=== PATIENT | female | born 1970 | race Two or more races ===

== ENCOUNTER 2020-05-28 09:58 | Inpatient (IN) | payer MEDICAID ==
[~2020-05-28] VITALS: Ht 165.1 cm; Wt 101.2 kg
[2020-05-28] VITALS (10 sets, daily range): BP systolic 103–178; BP diastolic 60–104
--- NOTE | 2020-05-28 10:16 | NUR ---
ED Nurse Note: Patient from home and was brought in by RA 13 due to Respiratory distress x 3 days. Patient also c/o CP when coughing. Noted coughing with phlegm and patient is on orthopneic position. patient is AAO x4, follows commands with SOB at rest and exertion. Sats 90% on NR at 15LPM.
--- NOTE | 2020-05-28 10:30 | NUR ---
ED Nurse Note: RN established IV access but unable to draw out blood specimen. ER charge nurse notified. Lab for blood draw.
--- NOTE | 2020-05-28 10:35 | NUR ---
ED Nurse Note: RT at the bed side.
--- NOTE | 2020-05-28 10:44 | NUR ---
ED Nurse Note: Exotic Dancer at the bed side for blood draw.
[2020-05-28 10:56] LABS: BASOPHILS % (AUTO) 0.4 % (0.0-2.0); HEMATOCRIT 40.1 % (37.0-47.0); LYMPHOCYTES % (AUTO) 16.4 % (20.0-45.0); MEAN CORPUSCULAR VOLUME 91 FL (80-99); MONOCYTES % (AUTO) 8.8 % (1.0-10.0); NEUTROPHILS % (AUTO) 74.4 % (45.0-75.0); PLATELET COUNT 204 K/UL (150-450); RED BLOOD COUNT 4.39 M/UL (4.20-5.40); RED CELL DISTRIBUTION WIDTH 14.1 % (11.6-14.8); WHITE BLOOD COUNT 5.4 K/UL (4.8-10.8)
[2020-05-28] MEDS ORDERED: cefTRIAXone 1 GM in NS 55 ML IVPB ONE (11:00)
[2020-05-28] MEDS ORDERED: dexAMETHasone 10mg/ml Inj IV ONE (11:00)
[2020-05-28] MEDS ORDERED: Azithromycin 500 MG in NS 275 ML IV ONE (11:00)
[2020-05-28 11:10] LABS: CALCIUM 8.8 MG/DL (8.5-10.1); POTASSIUM 3.7 MMOL/L (3.5-5.1)
--- NOTE | 2020-05-28 11:10 | NUR ---
ED Nurse Note: Patient reports body pain and is asking for pain meds. Dr Palumbo was notified.
[2020-05-28] MEDS ORDERED: Morphine Sulfate 4mg/ml Inj (IV USE ONLY) IVP ONE (11:15)
[2020-05-28 11:24] LABS: ALBUMIN 3.1 G/DL (3.4-5.0); ALBUMIN/GLOBULIN RATIO 0.7 (1.0-2.7); BILIRUBIN,TOTAL 0.9 MG/DL (0.2-1.0)
[2020-05-28 11:27] LABS: INR 1.1 (0.9-1.1)
--- NOTE | 2020-05-28 11:38 | NUR ---
ED Nurse Note: electrical engineering technologist Amira at the bed side for CXR.
[2020-05-28] MEDS ORDERED: Enoxaparin 40mg Inj SUBQ ONE (12:00)
--- NOTE | 2020-05-28 12:12 | NUR ---
ED Nurse Note: Patient has pulse oximetry reading 90% with NRB 15L. No high flow available. Placed 6L oxygen via NC and 15L oxygen via NRB as ordered.
--- NOTE | 2020-05-28 12:46 | NUR ---
ED Nurse Note: Dr Palumbo is okay not to collect urine sample.
--- NOTE | 2020-05-28 13:10 | Emergency Room Report ---
History of Present Illness General Chief Complaint: Dyspnea/Respdistress Source: Patient, EMS Present Illness HPI 50-year-old female presents for shortness of breath. Brought in by EMS from home. Hypoxic on room air. Placed on nonrebreather. Started 3 to 4 days ago. Recent Covid diagnosis. Denies chest pain. States she is short of breath at rest. States she has a cough with generalized body aches. No other aggravating relieving factors. 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 INSIGHT ANALYST: Yes COVID-19 Screening: Positive COVID-19 COVID-19 Testing Source: TUBE ROOM CASHIER Patient History Past Medical History: HTN Past Surgical History: none Pertinent Family History: none Social History: Denies: smoking, alcohol use, drug use Now: No Immunizations: UTD Reviewed Nursing Documentation: PMH: Agreed; PSxH: Agreed Nursing Documentation-PMH Past Medical History: No History, Except For Hx Hypertension: Yes Review of Systems All Other Systems: negative except mentioned in HPI Physical Exam Vital Signs Date Time Temp Pulse Resp B/P (MAP) Pulse Ox O2 Delivery O2 Flow Rate FiO2 05/28/20 09:56 97.0 103 28 126/104 (111) 90 Non-Rebreather 05/28/20 10:06 15.0 Sp02 EP Interpretation: reviewed, normal General Appearance: alert, GCS 15, non-toxic, mild distress, obese Head: normocephalic, atraumatic Eyes: bilateral eye normal inspection, bilateral eye PERRL ENT: hearing grossly normal, normal pharynx, no angioedema, normal voice Neck: full range of motion, supple/symm/no masses Respiratory: chest non-tender, crackles, speaking full sentences Cardiovascular #1: regular rate, rhythm, no edema Cardiovascular #2: 2+ carotid (R), 2+ carotid (L), 2+ radial (R), 2+ radial (L), 2+ dorsalis pedis (R), 2+ dorsalis pedis (L) Gastrointestinal: normal bowel sounds, non tender, soft, non-distended, no guarding, no rebound Rectal: deferred Genitourinary: normal inspection, no CVA tenderness Musculoskeletal: back normal, normal range of motion, gait/station normal, non- tender Neurologic: alert, motor strength/tone normal, oriented x3, sensory intact, responsive, speech normal Psychiatric: judgement/insight normal, memory normal, mood/affect normal, no suicidal/homicidal ideation Reflexes: 3+ bicep (R), 3+ bicep (L), 3+ tricep (R), 3+ tricep (L), 3+ knee (R), 3+ knee (L) Skin: other - See nursing notes Lymphatic: no adenopathy Procedures Critical Care Time Critical Care Time i. I feel this is a highly complex case requiring extensive working including EKG/Rhythm strip, Xray/CT/US, Blood/urine lab work, repeat exams while in ED,and administration of strong opiates/narcotics for pain control, admission to hospital or close patient follow up. Total time: 60 min bedside evaluation and treatment excludes procedures (EKG). Reason for critical care: Respiratory distress, hypoxia, Covid Possible complications: hypotension, hypertension, ID, shock, arrhythmias, metabolic acidosis, end organ damage, respiratory failure. Interventions: Labs, EKG, chest x-ray, broad-spectrum antibiotics, Decadron, Lovenox. Nonrebreather. Reassessment of vitals Course: Patient presenting with shortness of breath, hypoxia. Covid positive. Hypoxic on room air. Placed on nonrebreather. Chest x-ray shows patchy opacities. O2 sats improved on nonrebreather. Given Lovenox. Given Decadron. Given antibiotics Consultations: nursing staff, EMS, family Performed by: Dr Palumbo Tolerated well condition = serious j. because of unstable vital signs this patient had a condition that could potentially threaten life or limb. I feel this is a critical patient who required my full attention while patient was considered critical. Total Critical Care Time excluding procedures was greater than 60 minutes Medical Decision Making Diagnostic Impression: Primary Impression: Respiratory distress Additional Impression: Pneumonia due to COVID-19 virus ER Course Hospital Course 50-year-old female presents with shortness of breath, hypoxic. Covid positive Differential diagnoses include: Pneumonia, CHF exacerbation, pneumothorax, fluid overload Clinical course Patient placed on stretcher. Isolation. I wore full PPE. On campus monitor with hypoxia on room air. After initial history and physical, I ordered labs, IV fluids, EKG, chest x-ray, blood cultures, UA. Labs -no leukocytosis, hemoglobin/hematocrit stable, electrolytes okay, trop negative inflammatory markers + , d-dimer elevated COVID+ CXR -bilateral patchy opacities EKGnormal sinus rhythm no acute ischemic changes interpreted by me discussed option of BiPAP but patient O2 sats improved on nonrebreather. Given Decadron. Given Lovenox. Given antibiotics Case discussed with Dr. Del Cid and he agreed to the patient to his service for further care and support I feel this is a highly complex case requiring extensive working including EKG/Rhythm strip, Xray/CT/US, Blood/urine lab work, repeat exams while in ED, and administration of strong opiates/narcotics for pain control, admission to hospital or close patient follow up. Diagnosis - pneumonia due to COVID, resp distress Patient admitted to telemetry in serious condition Laboratory Tests Test 05/28/20 10:42 White Blood Count 5.4 K/UL (4.8-10.8) Red Blood Count 4.39 M/UL (4.20-5.40) Hemoglobin 13.0 G/DL (12.0-16.0) Hematocrit 40.1 % (37.0-47.0) Mean Corpuscular Volume 91 FL (80-99) Mean Corpuscular Hemoglobin 29.7 PG (27.0-31.0) Mean Corpuscular Hemoglobin Concent 32.5 G/DL (32.0-36.0) Red Cell Distribution Width 14.1 % (11.6-14.8) Platelet Count 204 K/UL (150-450) Mean Platelet Volume 7.0 FL (6.5-10.1) Neutrophils (%) (Auto) 74.4 % (45.0-75.0) Lymphocytes (%) (Auto) 16.4 % (20.0-45.0) L Monocytes (%) (Auto) 8.8 % (1.0-10.0) Eosinophils (%) (Auto) 0.0 % (0.0-3.0) Basophils (%) (Auto) 0.4 % (0.0-2.0) Prothrombin Time 11.7 SEC (9.30-11.50) H Prothromb Time International Ratio 1.1 (0.9-1.1) Activated Partial Thromboplast Time 28 SEC (23-33) D-Dimer 0.52 mg/L FEU (0.00-0.49) H Sodium Level 135 MMOL/L (136-145) L Potassium Level 3.7 MMOL/L (3.5-5.1) Chloride Level 100 MMOL/L (98-107) Carbon Dioxide Level 27 MMOL/L (21-32) Anion Gap 8 mmol/L (5-15) Blood Urea Nitrogen 15 mg/dL (7-18) Creatinine 1.0 MG/DL (0.55-1.30) Estimat Glomerular Filtration Rate 58.9 mL/min (>60) Glucose Level 145 MG/DL (74-106) H Lactic Acid Level 1.60 mmol/L (0.4-2.0) Calcium Level 8.8 MG/DL (8.5-10.1) Ferritin 1622 NG/ML (8-388) H Total Bilirubin 0.9 MG/DL (0.2-1.0) Aspartate Amino Transf (AST/SGOT) 72 U/L (15-37) H Alanine Aminotransferase (ALT/SGPT) 69 U/L (12-78) Alkaline Phosphatase 43 U/L (46-116) L Lactate Dehydrogenase 430 U/L (81-234) H Troponin I 0.000 ng/mL (0.000-0.056) C-Reactive Protein, Quantitative Pending Pro-B-Type Natriuretic Peptide 33 pg/mL (0-125) Total Protein 7.8 G/DL (6.4-8.2) Albumin 3.1 G/DL (3.4-5.0) L Globulin 4.7 g/dL Albumin/Globulin Ratio 0.7 (1.0-2.7) L Lipase 174 U/L (73-393) EKG Diagnostic Results Troponin ordered: Yes Rate: normal Rhythm: NSR ST Segments: no acute changes ASA given to the pt in ED: No Rhythm Strip Diag. Results EP Interpretation: yes Rhythm: NSR, no PVC's, no ectopy Chest X-Ray Diagnostic Results Chest X-Ray Diagnostic Results : Chest X-Ray Ordered: Yes # of Views/Limited/Complete: 1 View Indication: Shortness of Breath EP Interpretation: Yes Interpretation: no pneumothorax, other - patchy bilateral opacities Impression: Other - Pneumonia Electronically Signed by: Electronically signed by Heath Palumbo MD Last Vital Signs Date Time Temp Pulse Resp B/P (MAP) Pulse Ox O2 Delivery O2 Flow Rate FiO2 05/28/20 12:00 98.2 98 23 112/66 90 Non-Rebreather 15.0 Status: improved Disposition: ADMITTED INPATIENT Condition: Serious Referrals: NON PHYSICIAN (PCP) Heath Palumbo MD May 28, 2020 13:10
--- NOTE | 2020-05-28 14:18 | Consultation ---
Consult Note Consult Note Date of consultation: 05/28/2020 Consulting physician: Dr. Nava Reason for consultation: COVID-19 pneumonia, and respiratory distress HPI: This is a 50-year-old female with past medical history of hypertension who presented to the ED for evaluation of shortness of breath x4 days. She is brought in by EMS from home. She was hypoxic on room air on arrival. She is now placed on nonrebreather mask saturating at 88%. Patient reports cough, shortness of breath, generalized body aches, fever, nausea, and diarrhea. She denies chest pain. Chest x-ray read by ER MD shows patchy opacities. She has been given Lovenox, Decadron, and antibiotics. Patient tested positive for COVID-19 in the ER. Initial laboratory studies are notable for no leukocytosis, stable H&H, electrolytes within normal limits, negative troponin. Inflammatory markers are elevated. PMHx: Hypertension Meds: Full list of home medication unavailable at this time Allergies: No known allergies FHx: Unknown Personal/Social Hx: Lives at home ROS: Negative except for mentioned in HPI PE: VS: BP 126/104, HR 103, RR 28, wt 100 kg, ht 167 cm General: Patient appears short of breath on nonrebreather mask. Patient speaks in short sentences. Patient appears morbidly obese. HEENT: Head examination reveals that the head is normocephalic, atraumatic without deformity or unusual swelling. Pupils are round, reactive to light and accomodation normally. There is no nystagmus, lid lag or exophthalmos. Nasal mucosa is pink. Vision is normal. Chest and Lung: Reveals crackles. She coughs on deep inspiration. Cardiovascular: Revelas normal S1, S2 without murmurs, rubs or clicks Abdomen: Obese, soft with no tenderness or organomegaly Rectal: Deferred Musculoskeletal: There is no tenderness to plapation. Range of motion is normal Neurological: Cranial nerves II to XII are intact. Laboratory data: Lab testing shows unremarkable CBC. Chemistries show sodium 135, glucose 145, ferritin 1622, AST 72, alk phos 43, LDH 430, albumin 3.1 Assessment/Plan 1. COVID-19 pneumonia -Given her hypoxia even on nonrebreather mask, she may be a candidate for BiPAP - We will continue broad-spectrum antibiotics. - We will continue dexamethasone -Defer use of remdesivir to ID -Continue monitoring SaO2 and keep it >92% -Check ABG after BiPAP 2. Hyponatremia -Per primary MD 3. Elevated inflammatory markers -Continue Lovenox The care for this patient was discussed with my supervising physician. Time spent for this case was approximately 31 minutes. Vamshi Garcia May 28, 2020 14:18
--- NOTE | 2020-05-28 15:30 | NUR ---
ED Nurse Note: Patient now on Bipap. Sats 88-90%.
--- NOTE | 2020-05-28 15:55 | NUR ---
ED Nurse Note: Second red to sent to lab.
[2020-05-28] MEDS ORDERED: Loading Dose:Remdesivir 200mg/NS 210ml IV SCH ×2 (16:00)
--- NOTE | 2020-05-28 17:43 | NUR ---
ED Nurse Note: Ericka (natalie) [phone]
--- NOTE | 2020-05-28 18:29 | Diagnostic Imaging Report ---
Indication: Shortness of breath Technique: One view of the chest Comparison: none Findings: Body habitus limits evaluation. There are bilateral streaky and patchy infiltrates. The heart size is normal. The pleural spaces are clear. Impression: Bilateral infiltrates, likely multifocal pneumonia
--- NOTE | 2020-05-28 19:15 | NUR ---
HAND-OFF: Report given to Nirmala ELLINGTON.
--- NOTE | 2020-05-28 19:41 | NUR ---
ED Nurse Note: Recived report from Crystal. ER MD at bedside. ER MD educated pt on current condition and pt is refusing intubation at this time. She is axox4. She states she feels terrible. She is hypoxic on bipap. Her vitals are stable otherwise. Thearapuetic communication utilized and care clustered. Maintained isolation status.
--- NOTE | 2020-05-28 21:56 | NUR ---
ED Nurse Note: Pt is resting, stated thah she was happy to talk to her niece. She is asking about how long it will be until she is intubated. Re-educated pt on condition and current plan of care. Educated on informed consent. Pt states that she is tired. Pt states that she is ready to be intubated. Informed ER . ER MD spoke with pt about her wishes. ER MD requested different setting on BI-Pap to 06/01. Pt's vitals are stable for now. She is hypoxic SPO2 85%. Continuous tele monitoring and pulse ox monitoring. 2 IVs placed. Addendum: 05/28/20 at 2238 by ELA Correction: SPO2 was 62%
--- NOTE | 2020-05-28 22:25 | NUR ---
ED Nurse Note: 22:23: Etomidate 20mg given 22:23: Rucoronium 100 mg 22:25: Intubation 7 ET right lip, 22cm at the teeth. Vent settings AC 16, TV 500, 100%, +10 PEEP SPO2 85%, HR 107, 178/99, Addendum: 05/28/20 at 2316 by TDANCEY Correction: AC 15
--- NOTE | 2020-05-28 22:38 | Emergency Room Report ---
History of Present Illness General Chief Complaint: Dyspnea/Respdistress Source: Patient, EMS Present Illness Allergies: Coded Allergies: No Known Allergies (Unverified , 05/28/20) COVID-19 Screening Contact w/high risk pt: No Experienced COVID-19 symptoms?: Yes COVID-19 Testing performed DINING ROOM HELPER: Yes COVID-19 Screening: Positive COVID-19 COVID-19 Testing Source: CELL BIOLOGY SCIENTIST Patient History Now: No Nursing Documentation-[facility] Past Medical History: No History, Except For Hx Hypertension: Yes Physical Exam Vital Signs Date Time Temp Pulse Resp B/P (MAP) Pulse Ox O2 Delivery O2 Flow Rate FiO2 05/28/20 09:56 97.0 103 28 126/104 (111) 90 Non-Rebreather 05/28/20 10:06 15.0 05/28/20 15:14 100 Procedures Intubation Intubation : Consent: Emergent Time of Intubation: 22:20 Tube Size (cm): 7.0 Medications: Etomidate, Rocuronium Breath Sounds after Intubation: equal Intubation Complications: no complications Post Intubation Xray: Yes Attempts: One Patient Tolerated: Well Complications: None Progress Patient was intubated after laryngoscopy x1 with glide scope. Patient was maintained on high flow nasal cannula and given medications. ET tube is secured to 22 cm. She was started on mechanical ventilation with some improvement in oxygen saturation subsequently.Patient was started on sedation with propofol Medical Decision Making Diagnostic Impression: Primary Impression: Respiratory distress Additional Impression: Pneumonia due to COVID-19 virus Last Vital Signs Date Time Temp Pulse Resp B/P (MAP) Pulse Ox O2 Delivery O2 Flow Rate FiO2 05/28/20 21:55 98.0 83 41 119/71 85 Bi-pap 100 05/28/20 20:15 15.0 Disposition: ADMITTED INPATIENT Condition: Serious Referrals: NON PHYSICIAN (PCP) Jhonatan Bolton MD May 28, 2020 22:38
[2020-05-28] MEDS ORDERED: propofoL 1,000mg/100ml 100 ML IV SCH (22:45)
--- NOTE | 2020-05-28 22:48 | NUR ---
ED Nurse Note: Propofol drip started RASS of 0 per ER MD order of 10mcg/kg/min Will titrate per hospital protocol.
[2020-05-29] VITALS (15 sets, daily range): BP systolic 98–147; BP diastolic 58–97
[2020-05-29] MEDS ORDERED: Morphine Sulfate 4mg/ml Inj (IV USE ONLY) IVP ONE (00:15)
--- NOTE | 2020-05-29 00:16 | NUR ---
ED Nurse Note: Paged DR Del Cid for orders
--- NOTE | 2020-05-29 01:30 | NUR ---
ED Nurse Note: PAGED DR. FRANK FOR ADMISSION ORDERS
--- NOTE | 2020-05-29 01:41 | NUR ---
ED Nurse Note: Titrated Profofol to 40mcg/kg/min, Pt is -2 RASS and is comfortable. Morphine administered for throat pain, pt nodded to afirm that her pain was better after 15 minutes. Lennon placed per order. Oral Gtube place by RN, Chest xray done to confirm placement. Urine sent to lab. Nasal and rectal swabs sent to lab. 2nd abg done by RT. Pt's resting comfortably with SPO2 91%.
[2020-05-29 01:45] LABS: APPEARANCE,URINE CLEAR; BILIRUBIN, URINE NEGATIVE (NEGATIVE); GLUCOSE, URINE (UA) NEGATIVE (NEGATIVE); KETONES,URINE 1+ (NEGATIVE); LEUKOCYTE ESTERASE ,URINE NEGATIVE (NEGATIVE); NITRITE,URINE NEGATIVE (NEGATIVE); PH,URINE 6 (4.5-8.0); PROTEIN,URINE 3+ (NEGATIVE); UROBILINOGEN,URINE NORMAL MG/DL (0.0-1.0)
[2020-05-29 01:51] LABS: COLOR,URINE YELLOW
--- NOTE | 2020-05-29 02:12 | NUR ---
ED Nurse Note: Called Dr Del Cid for a third time for new orders. Pt is resting comfortably, vitals are stable as documented.
[2020-05-29] MEDS ORDERED: propofoL 1,000mg/100ml 100 ML IV SCH (02:45)
--- NOTE | 2020-05-29 03:19 | NUR ---
ED Nurse Note: Pt is resting comfortably with eyes closed, she is not coughing on the vent, decreased the sedation, Vitals are stable as documented, no complaints of pain.
--- NOTE | 2020-05-29 04:54 | NUR ---
ED Nurse Note: Pt is resting comfortably, nods head no when asked about pain, suctioned pt with RT, vitals are stable as documented, labs sent
[2020-05-29 04:57] LABS: BASOPHILS % (AUTO) 0.3 % (0.0-2.0); HEMATOCRIT 35.6 % (37.0-47.0); HEMOGLOBIN 12.5 G/DL (12.0-16.0); LYMPHOCYTES % (AUTO) 13.9 % (20.0-45.0); MEAN CORPUSCULAR VOLUME 86 FL (80-99); MONOCYTES % (AUTO) 7.7 % (1.0-10.0); NEUTROPHILS % (AUTO) 78.1 % (45.0-75.0); PLATELET COUNT 209 K/UL (150-450); RED BLOOD COUNT 4.12 M/UL (4.20-5.40); RED CELL DISTRIBUTION WIDTH 15.3 % (11.6-14.8); WHITE BLOOD COUNT 7.8 K/UL (4.8-10.8)
--- NOTE | 2020-05-29 05:11 | NUR ---
ED Nurse Note: Paged Dr Del Cid
--- NOTE | 2020-05-29 05:33 | NUR ---
ED Nurse Note: paged DR Del Cid. for new orders
--- NOTE | 2020-05-29 05:55 | NUR ---
ED Nurse Note: Pt is resting comfortably, eyes closed, no signs of distress. Vitals are stable as documented. PT is not coughing or fighting the vent.
--- NOTE | 2020-05-29 06:07 | NUR ---
ED Nurse Note: Spoke with Ericka medrano) on the phone ad updted her on the pts condition.
--- NOTE | 2020-05-29 06:28 | NUR ---
ED Nurse Note: Unable to continue with new profofol infusion until pharamacy opens at 07:00. There is none in the ICU or ED pyxis.
--- NOTE | 2020-05-29 06:36 | NUR ---
ED Nurse Note: Paged DR Del Cid for new orders.
--- NOTE | 2020-05-29 07:00 | NUR ---
RESPIRATORY NOTE: PT RECEIVED ON CMV AC/VC 15,500,100%,+10. ALARMS ARE ON AND AUDIBLE. PT IS INTUBATED WITH A ETT 7.0 @ 23CM. ALARMS ARE ON AND AUDIBLE. PT HAS LOW SATURATION OF APPROXIMATELY 90% ON 100% FIO2 AND PEEP +10. VENTILATOR PLUGGED INTO RED OUTLET. WILL CONTINUE TO CLOSELY MONITOR.
[2020-05-29] MEDS: propofoL 1,000mg/100ml 100 ML IV SCH ×4 (07:02→19:40)
--- NOTE | 2020-05-29 08:08 | NUR ---
ED Nurse Note: report received from RAKEL Silvestre. Pt resting in bed with eyes closed. Intibated, 89% on mech vent @ 100% Fio2. Pt on propofol drip with RASS -2. Pt able to follow simple commands. no acute distress noted.
[2020-05-29] MEDS: dexAMETHasone 10mg/ml Inj IV SCH (08:15)
[2020-05-29] MEDS: cefTRIAXone 1 GM in NS 55 ML IVPB SCH (08:15)
[2020-05-29] MEDS: Azithromycin 500 MG in NS 275 ML IV SCH (08:19)
--- NOTE | 2020-05-29 08:50 | NUR ---
ED Nurse Note: Dr boston at bedside aware of O2 sat between 80 and 85%
--- NOTE | 2020-05-29 09:42 | General Progress Note ---
Subjective Constitutional: Reports: weakness Allergies: Coded Allergies: No Known Allergies (Unverified , 05/28/20) All Systems: reviewed and negative except above Subjective intubated sedatde Objective Last 24 Hour Vital Signs Date Time Temp Pulse Resp B/P (MAP) Pulse Ox O2 Delivery O2 Flow Rate FiO2 05/29/20 07:12 97.6 88 26 100/70 89 Mechanical Ventilator 100 05/29/20 07:02 36 100/69 Mechanical Ventilator 100 05/29/20 05:53 97.8 73 23 99/59 88 Mechanical Ventilator 100 05/29/20 04:21 97.6 78 26 103/68 94 Mechanical Ventilator 100 05/29/20 03:30 79 20 100 05/29/20 03:18 97.7 75 20 99/61 88 Mechanical Ventilator 100 05/29/20 03:13 16 92/64 Mechanical Ventilator 100 05/29/20 02:14 98.3 78 17 107/68 88 Mechanical Ventilator 100 05/29/20 01:37 98.0 82 20 105/67 91 Mechanical Ventilator 100 05/29/20 01:25 23 111/66 Mechanical Ventilator 100 05/29/20 01:24 97.8 05/29/20 01:10 29 130/109 Mechanical Ventilator 100 05/29/20 00:55 97.8 81 30 147/97 91 Mechanical Ventilator 100 05/28/20 23:55 30 110/87 Mechanical Ventilator 100 05/28/20 23:40 28 141/97 Mechanical Ventilator 100 05/28/20 23:24 22 141/97 Mechanical Ventilator 100 05/28/20 23:19 15 175/92 Mechanical Ventilator 100 05/28/20 23:03 16 175/93 Mechanical Ventilator 100.0 05/28/20 22:48 16 178/99 Mechanical Ventilator 100.0 05/28/20 22:45 105 16 100 05/28/20 22:36 98.3 106 20 178/99 81 Endotracheal Tube 05/28/20 21:55 98.0 83 41 119/71 65 Bi-pap 100 05/28/20 20:51 98.4 77 31 115/65 80 Bi-pap 100 05/28/20 20:15 98.3 78 33 124/72 79 Bi-pap 15.0 100 05/28/20 19:40 98.6 87 39 116/72 80 Bi-pap 05/28/20 19:28 73 29 78 100 05/28/20 18:00 98.3 87 22 103/65 88 Non-Rebreather 15.0 100 05/28/20 16:00 97.7 80 25 115/67 91 Non-Rebreather 100 05/28/20 15:15 15.0 100 05/28/20 15:14 98 29 92 100 05/28/20 14:06 98.2 84 20 109/60 89 Non-Rebreather 15.0 05/28/20 12:00 98.2 98 23 112/66 90 Non-Rebreather 15.0 05/28/20 11:52 98.2 05/28/20 10:06 97.0 103 25 126/104 90 Non-Rebreather 15.0 05/28/20 10:06 103 28 Non-Rebreather 05/28/20 09:56 97.0 103 28 126/104 (111) 90 Non-Rebreather Intake and Output 05/28/20 05/29/20 19:00 07:00 Intake Total 580 ml Balance 580 ml Intake IV Total 580 ml Laboratory Tests 05/28/20 10:42: White Blood Count 5.4, Red Blood Count 4.39, Hemoglobin 13.0, Hematocrit 40.1, Mean Corpuscular Volume 91, Mean Corpuscular Hemoglobin 29.7, Mean Corpuscular Hemoglobin Concent 32.5, Red Cell Distribution Width 14.1, Platelet Count 204, Mean Platelet Volume 7.0, Neutrophils (%) (Auto) 74.4, Lymphocytes (%) (Auto) 16.4L, Monocytes (%) (Auto) 8.8, Eosinophils (%) (Auto) 0.0, Basophils (%) (Auto) 0.4, Prothrombin Time 11.7H, Prothromb Time International Ratio 1.1, Activated Partial Thromboplast Time 28, D-Dimer 0.52H, Sodium Level 135L, Potassium Level 3.7, Chloride Level 100, Carbon Dioxide Level 27, Anion Gap 8, Blood Urea Nitrogen 15, Creatinine 1.0, Estimat Glomerular Filtration Rate 58.9, Glucose Level 145H, Lactic Acid Level 1.60, Calcium Level 8.8, Ferritin 1622H, Total Bilirubin 0.9, Aspartate Amino Transf (AST/SGOT) 72H, Alanine Aminotransferase (ALT/SGPT) 69, Alkaline Phosphatase 43L, Lactate Dehydrogenase 430H, Troponin I 0.000, Pro-B-Type Natriuretic Peptide 33, Total Protein 7.8, Albumin 3.1L, Globulin 4.7, Albumin/Globulin Ratio 0.7L, Lipase 174 05/28/20 14:29: Arterial Blood pH 7.404, Arterial Blood Partial Pressure CO2 41.7, Arterial Blood Partial Pressure O2 44.1*L, Arterial Blood HCO3 25.5, Arterial Blood Oxygen Saturation 80.0*L, Arterial Blood Base Excess 0.6, Jeremiah Test Positive 05/28/20 15:55: C-Reactive Protein, Quantitative 78.8H 05/28/20 19:13: Arterial Blood pH 7.389, Arterial Blood Partial Pressure CO2 44.4, Arterial Blood Partial Pressure O2 48.9*L, Arterial Blood HCO3 26.2H, Arterial Blood Oxygen Saturation 84.3*L, Arterial Blood Base Excess 0.9, Jeremiah Test Positive 05/29/20 01:15: Urine Color Yellow, Urine Appearance Clear, Urine pH 6, Urine Specific Chappell 1.020, Urine Protein 3+H, Urine Glucose (UA) Negative, Urine Ketones 1+H, Urine Blood 1+H, Urine Nitrite Negative, Urine Bilirubin Negative, Urine Urobilinogen Normal, Urine Leukocyte Esterase Negative, Urine RBC 0-2, Urine WBC 0-2, Urine Squamous Epithelial Cells Few, Urine Bacteria None 05/29/20 01:52: Arterial Blood pH 7.416, Arterial Blood Partial Pressure CO2 39.2, Arterial Blood Partial Pressure O2 62.9L, Arterial Blood HCO3 24.6, Arterial Blood Oxygen Saturation 91.3L, Arterial Blood Base Excess 0.2, Jeremiah Test Positive 05/29/20 04:40: White Blood Count 7.8, Red Blood Count 4.12L, Hemoglobin 12.5, Hematocrit 35.6L, Mean Corpuscular Volume 86, Mean Corpuscular Hemoglobin 30.4, Mean Corpuscular Hemoglobin Concent 35.2, Red Cell Distribution Width 15.3H, Platelet Count 209, Mean Platelet Volume 7.2, Neutrophils (%) (Auto) 78.1H, Lymphocytes (%) (Auto) 13.9L, Monocytes (%) (Auto) 7.7, Eosinophils (%) (Auto) 0.0, Basophils (%) (Auto) 0.3, Direct Bilirubin 0.3, Triglycerides Level 180H Height (Feet): 5 Height (Inches): 6.00 Weight (Pounds): 220 General Appearance: lethargic EENT: normal ENT inspection Neck: normal alignment Cardiovascular: normal peripheral pulses, normal rate, regular rhythm Respiratory/Chest: chest wall non-tender, lungs clear, normal breath sounds Abdomen: normal bowel sounds, non tender, soft Extremities: normal inspection Edema: no edema noted Arm (L), no edema noted Arm (R), no edema noted Leg (L), no edema noted Leg (R), no edema noted Pedal (L), no edema noted Pedal (R), no edema noted Generalized Neurologic: motor weakness Skin: normal pigmentation, warm/dry Assessment/Plan Problem List: (1) Hypoxia ICD Codes: R09.02 - Hypoxemia SNOMED: 471137088 (2) Respiratory failure ICD Codes: J96.90 - Respiratory failure, unspecified, unspecified whether with hypoxia or hypercapnia SNOMED: 129836814 (3) Respiratory distress ICD Codes: R06.03 - Acute respiratory distress; J12.82 - Pneumonia due to coronavirus disease 2019 SNOMED: 578234621 (4) Pneumonia due to COVID-19 virus ICD Codes: U07.1 - COVID-19; J12.82 - Pneumonia due to coronavirus disease 2019 SNOMED: 487636653557428237 Status: unchanged Assessment/Plan: vent abx id pulm f/u cbc bmp am aTnk Del Cid DO May 29, 2020 09:42
--- NOTE | 2020-05-29 10:14 | History and Physical Report ---
DATE OF ADMISSION: 05/28/2020 TIME SEEN: Approximate time 1 p.m. CONSULTANTS: 1. Tank Del Cid DO. 2. Fili Mcelroy MD. 3. Javier Nava MD. CHIEF COMPLAINT: Respiratory distress, hypoxia, respiratory failure. BRIEF HISTORY: This is a 50-year-old female who came into [facility] yesterday with increased shortness of breath for two days. Shortly thereafter went into respiratory failure. The patient currently intubated, sedated in the ER, awaiting bed. PAST MEDICAL HISTORY: Nothing. PAST SURGICAL HISTORY: Nothing. MEDICATIONS: Remdesivir, dexamethasone, ceftriaxone, azithromycin, propofol. ALLERGIES: Denies. SOCIAL HISTORY: No smoking. No alcohol. No intravenous drug abuse. FAMILY HISTORY: Noncontributory. PHYSICAL EXAMINATION: GENERAL: Lethargic, intubated in bed, nonverbal. VITAL SIGNS: Temperature 97 degrees, pulse 88, respirations 26, blood pressure 100/70. CARDIOVASCULAR: No murmur. LUNGS: Poor air exchange. ABDOMEN: Bowel sounds distant. EXTREMITIES: No cyanosis, clubbing, or edema. NEUROLOGIC: The patient is flaccid in bed, not following directions. LABORATORY DATA: Labs at this time show CBC is normal. BMP is pending. INR is 1.1. D-dimer 0.52. Urinalysis show 1+ blood, 1+ ketones. ASSESSMENT: 1. Respiratory failure. 2. Hypoxia. 3. COVID infection was positive. PLAN: 1. Vent per pulmonary. 2. Antibiotics per Infectious Diseases. 3. Blood pressure and blood sugar control. 4. Dietary followup. 5. CBC and BMP in the morning. Tank Del Cid D.O. DR: Rosmery JOB#: [id number] CC:
--- NOTE | 2020-05-29 10:30 | NUR ---
ED Nurse Note: Pt coughing and at times, fighting against the vent. O2 sat 79/80%. SPoke with Dr. Del Cid who said to speak with Dr. Nava. Called Dr. Nava and spoke with him about patient's condition. Per Dr. Nava, give 2 mg morphine q4hr PRN and he will see the patient MARILIN. Orders noted and carried out.
[2020-05-29] MEDS ORDERED: Morphine Sulfate 2mg/ml Inj(IV/IM USE ONLY) IVP PRN (10:45)
--- NOTE | 2020-05-29 10:58 | NUR ---
ED Nurse Note: RT @ bedside suctioning patient.
[2020-05-29 11:09] LABS: ANION GAP 11 mmol/L (5-15); BLOOD UREA NITROGEN 21 mg/dL (7-18); CALCIUM 8.8 MG/DL (8.5-10.1); CARBON DIOXIDE 25 MMOL/L (21-32); CHLORIDE 102 MMOL/L (98-107); CREATININE 0.8 MG/DL (0.55-1.30); POTASSIUM 4.6 MMOL/L (3.5-5.1); SODIUM 138 MMOL/L (136-145)
[2020-05-29 11:13] LABS: ALANINE AMINOTRANSFERASE 71 U/L (12-78); ALBUMIN/GLOBULIN RATIO 0.8 (1.0-2.7); ALKALINE PHOSPHATASE 42 U/L (46-116); ASPARTATE AMINO TRANSFERASE 93 U/L (15-37); BILIRUBIN,TOTAL 0.7 MG/DL (0.2-1.0)
--- NOTE | 2020-05-29 12:10 | NUR ---
ED Nurse Note: Dr. Nava @ bedside to assess patient. Aware of low o2 sat of 80%. Per MD, increase Peep to 14 and change PRN morphine to q2hr PRN. orders noted and carried out.
[2020-05-29] MEDS: Morphine Sulfate 2mg/ml Inj(IV/IM USE ONLY) IVP PRN (14:45)
--- NOTE | 2020-05-29 15:06 | Pulmonology Progress Note ---
Subjective Interval Events: Intubated overnight Constitutional: Reports: no symptoms HEENT: Repors: no symptoms Respiratory: Reports: no symptoms Cardiovascular: Reports: no symptoms Gastrointestinal/Abdominal: Reports: no symptoms Genitourinary: Reports: no symptoms Allergies: Coded Allergies: No Known Allergies (Unverified , 05/28/20) All Systems: reviewed and negative except above Objective Last 24 Hour Vital Signs Date Time Temp Pulse Resp B/P (MAP) Pulse Ox O2 Delivery O2 Flow Rate FiO2 05/29/20 14:00 97.8 66 26 98/60 87 Mechanical Ventilator 100.0 100 05/29/20 12:00 98.1 75 29 99/58 81 Mechanical Ventilator 100.0 100 05/29/20 10:57 29 108/72 Mechanical Ventilator 100 05/29/20 10:00 98.2 93 26 108/73 86 Mechanical Ventilator 100.0 100 05/29/20 08:00 98.1 91 26 102/67 89 Mechanical Ventilator 100.0 100 05/29/20 07:12 97.6 88 26 100/70 89 Mechanical Ventilator 100 05/29/20 07:02 36 100/69 Mechanical Ventilator 100 05/29/20 07:00 77 25 100 05/29/20 05:53 97.8 73 23 99/59 88 Mechanical Ventilator 100 05/29/20 04:21 97.6 78 26 103/68 94 Mechanical Ventilator 100 05/29/20 03:30 79 20 100 05/29/20 03:18 97.7 75 20 99/61 88 Mechanical Ventilator 100 05/29/20 03:13 16 92/64 Mechanical Ventilator 100 05/29/20 02:14 98.3 78 17 107/68 88 Mechanical Ventilator 100 05/29/20 01:37 98.0 82 20 105/67 91 Mechanical Ventilator 100 05/29/20 01:25 23 111/66 Mechanical Ventilator 100 05/29/20 01:24 97.8 05/29/20 01:10 29 130/109 Mechanical Ventilator 100 05/29/20 00:55 97.8 81 30 147/97 91 Mechanical Ventilator 100 05/28/20 23:55 30 110/87 Mechanical Ventilator 100 05/28/20 23:40 28 141/97 Mechanical Ventilator 100 05/28/20 23:24 22 141/97 Mechanical Ventilator 100 05/28/20 23:19 15 175/92 Mechanical Ventilator 100 05/28/20 23:03 16 175/93 Mechanical Ventilator 100.0 05/28/20 22:48 16 178/99 Mechanical Ventilator 100.0 05/28/20 22:45 105 16 100 05/28/20 22:36 98.3 106 20 178/99 81 Endotracheal Tube 05/28/20 21:55 98.0 83 41 119/71 65 Bi-pap 100 05/28/20 20:51 98.4 77 31 115/65 80 Bi-pap 100 05/28/20 20:15 98.3 78 33 124/72 79 Bi-pap 15.0 100 05/28/20 19:40 98.6 87 39 116/72 80 Bi-pap 05/28/20 19:28 73 29 78 100 05/28/20 18:00 98.3 87 22 103/65 88 Non-Rebreather 15.0 100 05/28/20 16:00 97.7 80 25 115/67 91 Non-Rebreather 100 05/28/20 15:15 15.0 100 05/28/20 15:14 98 29 92 100 Intake and Output 05/28/20 05/29/20 19:00 07:00 Intake Total 580 ml Balance 580 ml Intake IV Total 580 ml General Appearance: no acute distress HEENT: normocephalic Respiratory: chest wall non-tender Cardiovascular: normal peripheral pulses Abdomen: normal bowel sounds Microbiology Date/Time Source Procedure Growth Status 05/28/20 11:18 Nasopharynx SARS-CoV-2 RdRp Gene Assay - Final Complete Laboratory Tests 05/28/20 15:55: C-Reactive Protein, Quantitative 78.8H 05/28/20 19:13: Arterial Blood pH 7.389, Arterial Blood Partial Pressure CO2 44.4, Arterial Blood Partial Pressure O2 48.9*L, Arterial Blood HCO3 26.2H, Arterial Blood Oxygen Saturation 84.3*L, Arterial Blood Base Excess 0.9, Jeremiah Test Positive 05/29/20 01:15: Urine Color Yellow, Urine Appearance Clear, Urine pH 6, Urine Specific Darby 1.020, Urine Protein 3+H, Urine Glucose (UA) Negative, Urine Ketones 1+H, Urine Blood 1+H, Urine Nitrite Negative, Urine Bilirubin Negative, Urine Urobilinogen Normal, Urine Leukocyte Esterase Negative, Urine RBC 0-2, Urine WBC 0-2, Urine Squamous Epithelial Cells Few, Urine Bacteria None 05/29/20 01:52: Arterial Blood pH 7.416, Arterial Blood Partial Pressure CO2 39.2, Arterial Blood Partial Pressure O2 62.9L, Arterial Blood HCO3 24.6, Arterial Blood Oxygen Saturation 91.3L, Arterial Blood Base Excess 0.2, Jeremiah Test Positive 05/29/20 04:40: White Blood Count 7.8, Red Blood Count 4.12L, Hemoglobin 12.5, Hematocrit 35.6L, Mean Corpuscular Volume 86, Mean Corpuscular Hemoglobin 30.4, Mean Corpuscular Hemoglobin Concent 35.2, Red Cell Distribution Width 15.3H, Platelet Count 209, Mean Platelet Volume 7.2, Neutrophils (%) (Auto) 78.1H, Lymphocytes (%) (Auto) 13.9L, Monocytes (%) (Auto) 7.7, Eosinophils (%) (Auto) 0.0, Basophils (%) (Auto) 0.3, Sodium Level 138, Potassium Level 4.6, Chloride Level 102, Carbon Dioxide Level 25, Anion Gap 11, Blood Urea Nitrogen 21H, Creatinine 0.8, Estimat Glomerular Filtration Rate > 60, Glucose Level 143H, Calcium Level 8.8, Total Bilirubin 0.7, Direct Bilirubin 0.3, Aspartate Amino Transf (AST/SGOT) 93H, Alanine Aminotransferase (ALT/SGPT) 71, Alkaline Phosphatase 42L, Total Protein 6.9, Albumin 3.0L, Globulin 3.9, Albumin/Globulin Ratio 0.8L, Triglycerides Level 180H Current Medications Medications (Trade) Dose Ordered Sig/Zelda Route PRN Reason Start Time Stop Time Status Last Admin Dose Admin Azithromycin 500 mg/Sodium Chloride 275 ml @ 275 mls/hr DAILY IV 05/29/20 09:00 06/05/20 08:59 05/29/20 08:19 Ceftriaxone Sodium 1 gm/ Sodium Chloride 55 ml @ 110 mls/hr DAILY IVPB 05/29/20 09:00 06/05/20 08:59 05/29/20 08:15 Dexamethasone Sodium Phosphate (Decadron 10mg/ ml Inj) 6 mg DAILY IV 05/29/20 09:00 06/06/20 09:01 05/29/20 08:15 Morphine Sulfate (Morphine Sulfate) 2 mg Q2H PRN IVP For Pain 05/29/20 12:45 06/05/20 12:44 05/29/20 14:45 Propofol 100 ml @ 17.962 mls/ hr Q12H IV 05/29/20 05:45 05/31/20 05:33 05/29/20 10:57 Remdesivir 100 mg/ Sodium Chloride 250 ml @ 250 mls/hr Q24H IV 05/29/20 16:00 06/01/20 16:59 Assessment/Plan Assessment/Plan 1. COVID-19 pneumonia -Intubated 05/28/20 - We will continue broad-spectrum antibiotics. - We will continue dexamethasone -Defer use of remdesivir to ID -Continue monitoring SaO2 and keep it >92% -Increase PEEP to 14 - May need pressors -Continue propofol; Morphine added 2. Hyponatremia -Per primary MD 3. Elevated inflammatory markers -Continue Javier Gonzalez MD May 29, 2020 15:05
--- NOTE | 2020-05-29 15:27 | Diagnostic Imaging Report ---
Indication: Post intubation Technique: One view of the chest Comparison: 11 hours earlier Findings: Bilateral infiltrates are again demonstrated, appear slightly worse. The heart is enlarged. Interim endotracheal intubation, endotracheal tube tip projecting approximately 3 cm above the shun. The heart is upper limits of normal in size. Impression: Satisfactory endotracheal intubation Slightly worse bilateral infiltrates
--- NOTE | 2020-05-29 15:53 | Diagnostic Imaging Report ---
Indication: Post orogastric tube placement Technique: One view of the chest Comparison: 3 hours earlier Findings: Interim placement of an orogastric tube, tip of which projects beyond the edge of the image, appearing to be well within the stomach. Stable satisfactory position of endotracheal tube. Bilateral infiltrates are unchanged. Impression: Satisfactory orogastric tube placement Unchanged bilateral infiltrates
--- NOTE | 2020-05-29 15:58 | NUR ---
ED Nurse Note: placed patient on josh bed. O2 sat 87%.
--- NOTE | 2020-05-29 16:02 | Cardiology Report ---
APPROVED REPORT EKG Measurement Heart [id number] <Conclusion> Normal sinus rhythm Nonspecific ST and T wave abnormality Abnormal ECG
[2020-05-29] MEDS: Maintenance Dose:Remdesivir 100mg/NS 230ml x 4 Doses IV SCH ×2 (16:34)
--- NOTE | 2020-05-29 17:29 | Consultation ---
DATE OF CONSULTATION: 05/29/2020 INFECTIOUS DISEASE CONSULTATION REFERRING PHYSICIAN: Tank Del Cid D.O. REASON FOR CONSULTATION: Pneumonia. HISTORY OF PRESENTING ILLNESS: This is a 50-year-old lady with no significant past medical history, who comes in with shortness of breath. She was in respiratory failure and was intubated in the emergency room. An infectious disease consultation has been obtained for antibiotics. PAST MEDICAL HISTORY: Nothing significant. SOCIAL HISTORY: She does not smoke, drink, or use drugs. FAMILY HISTORY: Noncontributory. REVIEW OF SYSTEMS: Unable to obtain currently. MEDICATIONS: As an inpatient, she is on remdesivir, morphine, dexamethasone, ceftriaxone, azithromycin. ALLERGIES: No known drug allergies. PHYSICAL EXAMINATION: VITAL SIGNS: Temperature of 97.8, T-max of 98.2, pulse of 66, respiratory rate 25, blood pressure 105/72, O2 saturation of 87% on 100% FiO2. Examination deferred due to COVID-19. LABORATORY DATA: White count 7.8, hemoglobin 12.5, hematocrit 35.6, MCV 86, platelet count of 209, neutrophils of 78%. Sodium 138, potassium 4.6, chloride 102, bicarb 25, BUN 21, creatinine 0.8, glucose 143, calcium of 8.8. Total bilirubin 0.7, AST 93, ALT 71, alkaline phosphatase 42, total protein 6.9, albumin of 3. UA is showing 0-2 white cells. COVID-19 test is positive. 05/28/2020 chest x-ray showing bilateral infiltrates, likely multifocal pneumonia. ASSESSMENT: This is a 50-year-old lady with no significant past medical history, who comes in with respiratory distress and shortness of breath and is found to have: 1. COVID-19 pneumonia. She is on 100% FiO2 with O2 saturation of 87. 2. Respiratory failure. 3. Fevers, improving. PLAN: 1. Continue remdesivir that has been started, day 2. 2. Continue dexamethasone day 2. 3. Continue ceftriaxone. 4. Discontinue azithromycin. 5. Continue isolation. 6. We will follow up the patient clinically. I would like to thank Dr. Tank Del Cid for this consultation. Shakuntala Lilibeth, M.D. DR: KINGSTON JOB#: [id number] CC: Tank Del Cid D.O.
--- NOTE | 2020-05-29 17:45 | NUR ---
ED Nurse Note: pt been on continuous propofol drip since start of shift. Pt has been receiving 30 mg/kg/min at ACTUAL weight of 140 kg. In [facility] however, pt's weight was not correct and 99 kg. Pt did not receive the propofol AT LOWER RATE. Lower rate is wrong. IV spreadsheet will show ACTUAL intake. Changed pt's weight in [facility]. Spoke with Aneta in pharmacy who said she will update propofol drip to reflect actual weight. SEE IV spreadsheet for correct intake.
--- NOTE | 2020-05-29 19:12 | NUR ---
ED Nurse Note: Report given to RAKEL Dueñas. Pt in stable condition. plan of care endorsed.
--- NOTE | 2020-05-29 19:14 | NUR ---
ED Nurse Note: Recieved pt resting in bed, eye closed, and on mech vent. pt Fio2 100% and Peep is 14. pt is on propofol drip with RASS 3.No acute disress noted.
--- NOTE | 2020-05-29 21:50 | NUR ---
ED Nurse Note: Pt is on the bed sleeping satting 91%. pt no distress. Deep suctioning done. we will keep monitoring the pt.
--- NOTE | 2020-05-29 22:25 | NUR ---
ED Nurse Note: Pt was out of propofol when we are about to transfer him. pt woke up and fighting to take out her tube. I took propofol from the pyxis and started the drip without scaning it. we transfered the pt as soon as we started the drip.
--- NOTE | 2020-05-29 22:30 | NUR ---
Note mirella in ED - 05/30/20 at 0040 by ED TRANSFER TO FLOOR: Patient transferred to [facility] as ordered, per Dinora . Report given to RAKEL aguilar. All Belongings sent with the pt. 2 RN and RT took the pt to the floor in stable condition.
--- NOTE | 2020-05-29 22:31 | NUR ---
TRANSFER TO FLOOR: Patient transferred to [facility] as ordered, per Dinora . Report given to RAKEL julio. All Belongings sent with the pt. 2 RN and RT took the pt to the floor in stable condition.
--- NOTE | 2020-05-29 23:30 | NUR ---
NURSE NOTES: Received pt from ER Covid +, orally intubated on ac mode sedated with Diprivan drip at 35mcg/kg/hr, infusing to pts Rt hand, site atraumatic, SR on the monitor, bp stable afebrile,Pt pulled out previous IV , restarted new one to pts left Wrist G 18 by RAKEL Chacon. Lennon to gravity with moderate amt of jordyn yellow urine. monitor I and o. Monitor lytes. Will continue to monitor.
[2020-05-30] VITALS (31 sets, daily range): BP systolic 118–153; BP diastolic 51–81
--- NOTE | 2020-05-30 | NUR ---
NURSE NOTES: Called Dr Nava for orders and updated md with pts condition, with orders given. pls see orders.
[2020-05-30] MEDS ORDERED: Heparin1,000 units/500ml Premix(Conc:2 units/ml) IV PRN (00:30)
[2020-05-30] MEDS ORDERED: Lidocaine 1% Plain 30 ml INJ PRN (00:30)
[2020-05-30] MEDS: propofoL 1,000mg/100ml 100 ML IV SCH ×5 (00:41→14:40)
[2020-05-30] MEDS: D5NS 1,000 ML IV SCH ×2 (00:41→14:34)
[2020-05-30] MEDS: Morphine Sulfate 2mg/ml Inj(IV/IM USE ONLY) IVP PRN ×5 (01:05→23:43)
--- NOTE | 2020-05-30 01:05 | NUR ---
NURSE NOTES: Morphine 2mg IVP was given due to FLACC 4
--- NOTE | 2020-05-30 03:00 | NUR ---
NURSE NOTES: Complete bed bath with bed changed was done.
--- NOTE | 2020-05-30 04:00 | NUR ---
NURSE NOTES: Maintained sedated with RASS SCORE-2 VSS
--- NOTE | 2020-05-30 06:40 | NUR ---
NURSE NOTES: Morphine 2 mg ivp was given due to FLACC 4
[2020-05-30 06:57] LABS: BASOPHILS % (AUTO) 0.2 % (0.0-2.0); HEMATOCRIT 35.3 % (37.0-47.0); HEMOGLOBIN 11.5 G/DL (12.0-16.0); LYMPHOCYTES % (AUTO) 12.9 % (20.0-45.0); MEAN CORPUSCULAR VOLUME 91 FL (80-99); MONOCYTES % (AUTO) 6.5 % (1.0-10.0); NEUTROPHILS % (AUTO) 80.4 % (45.0-75.0); PLATELET COUNT 249 K/UL (150-450); RED BLOOD COUNT 3.86 M/UL (4.20-5.40); RED CELL DISTRIBUTION WIDTH 14.2 % (11.6-14.8); WHITE BLOOD COUNT 9.5 K/UL (4.8-10.8)
[2020-05-30 07:14] LABS: ALANINE AMINOTRANSFERASE 54 U/L (12-78); ALBUMIN 2.5 G/DL (3.4-5.0); ALBUMIN/GLOBULIN RATIO 0.6 (1.0-2.7); ALKALINE PHOSPHATASE 42 U/L (46-116); ANION GAP 6 mmol/L (5-15); ASPARTATE AMINO TRANSFERASE 67 U/L (15-37); BILIRUBIN,DIRECT 0.2 MG/DL (0.0-0.3); BILIRUBIN,TOTAL 0.6 MG/DL (0.2-1.0); BLOOD UREA NITROGEN 26 mg/dL (7-18); CALCIUM 8.8 MG/DL (8.5-10.1); CARBON DIOXIDE 29 MMOL/L (21-32); CHLORIDE 105 MMOL/L (98-107); CREATININE 0.8 MG/DL (0.55-1.30); POTASSIUM 4.2 MMOL/L (3.5-5.1); SODIUM 140 MMOL/L (136-145); TRIGLYCERIDES 208 MG/DL (30-150)
--- NOTE | 2020-05-30 07:30 | NUR ---
NURSE HAND-OFF REPORT: Latest Vital Signs: Temperature 98.2 , Pulse 68 , B/P 132 /62 , Respiratory Rate 20 , O2 SAT 91 , Mechanical Ventilator, O2 Flow Rate . Vital Sign Comment: EKG Rhythm: Sinus Rhythm Rhythm change?: N MD Notified?: - MD Response: Latest Meyers Fall Score: 60 Fall Risk: High Risk Safety Measures: Call light , Bed Alarm , Side Rails , Bed position . Fall Precautions: Report given to Julianne ELLINGTON.
--- NOTE | 2020-05-30 08:24 | NUR ---
RD ASSESSMENT & RECOMMENDATIONS SEE CARE ACTIVITY FOR COMPLETE ASSESSMENT DAILY ESTIMATED NEEDS: Needs based on Critical care, obesity 11-14kcal/kg actual body wt (140kg) kcals/kg 2694-0481 total kcals 1.5-2.0g prot/kg IBW (64.5kg) g protein/kg 96-129 g total protein 25-30ml/kg abw (83kg) mL/kg 2557-3516 total fluid mLs NUTRITION DIAGNOSIS: Swallowing difficulty R/T respiratory failure as evidenced by pt orally intubated and sedated, NPO at this time. CURRENT TF:NPO ENTERAL NUTRITION RECOMMENDATIONS: Vital AF 1.2 @ 60ml/hr x 24 hrs (WITHOUT PROPOFOL RUNNING) to provide 1440ml, 1728kcal, 108g prot, 1168ml free water * As medically appropriate, obtain GI access, initiate critical care and carb controlled TF formula of Vital AF 1.2. * Initiate TF @ 20ml/hr x 6hrs, advance 10ml q 4-6 hrs as tolerated to goal * TF @ goal meeds 100% est kcal/prot needs * HOB over 30 degrees/ water flush per MD W/ PROPOFOL RUNNING @ CURRENT RATE OF 29.4ML/HR (PROVIDES ADDITIONAL 776 LIPID KCAL) -> rec Vital AF @ goal rate of 35ml/hr x 24 hrs to provide 840ml, 1008kcal from TF -> TF + Propofol will provide 1784kcal ADDITIONAL RECOMMENDATIONS: * Calibrated bedscale wt * Monitor Propofol rate, need for TF adjustment -> Trend triglyceride: 208 on 05/30 * NISS w/ TF: h/o DM + on Decadron * Monitor lytes, replete as needed
[2020-05-30] MEDS ORDERED: Norepinephrine 4mg/NS Premix 250 ML ONE (09:20)
--- NOTE | 2020-05-30 09:20 | General Progress Note ---
Subjective Constitutional: Reports: weakness Allergies: Coded Allergies: No Known Allergies (Unverified , 05/28/20) All Systems: reviewed and negative except above Subjective intubated sedatde in icu Objective Last 24 Hour Vital Signs Date Time Temp Pulse Resp B/P (MAP) Pulse Ox O2 Delivery O2 Flow Rate FiO2 05/30/20 07:33 20 132/62 100 05/30/20 07:00 68 32 118/55 (76) 91 05/30/20 06:58 66 36 100 05/30/20 06:41 28 120/60 Mechanical Ventilator 100 05/30/20 06:30 70 31 118/55 (76) 91 05/30/20 06:30 70 31 05/30/20 06:00 64 31 124/56 (78) 92 05/30/20 06:00 100 05/30/20 05:41 26 124/53 Mechanical Ventilator 100 05/30/20 05:30 64 31 124/53 (76) 92 05/30/20 05:00 65 30 122/55 (77) 91 05/30/20 04:41 25 125/60 Mechanical Ventilator 100 05/30/20 04:30 65 30 134/58 (83) 92 05/30/20 04:09 27 121/60 26.0 100 05/30/20 04:00 Mechanical Ventilator 05/30/20 04:00 98.2 64 29 122/51 (74) 92 05/30/20 04:00 100 05/30/20 04:00 63 05/30/20 03:41 30 134/58 Mechanical Ventilator 100 05/30/20 03:30 63 29 121/56 (77) 92 05/30/20 03:00 66 30 121/53 (75) 91 05/30/20 02:41 30 121/56 Mechanical Ventilator 100 05/30/20 02:30 66 30 126/54 (78) 91 05/30/20 02:00 67 30 128/56 (80) 92 05/30/20 01:41 30 14/58 Mechanical Ventilator 100 05/30/20 01:30 67 31 121/53 (75) 91 05/30/20 01:20 66 34 100 05/30/20 01:00 66 30 126/54 (78) 91 05/30/20 00:41 30 125/63 Mechanical Ventilator 100 05/30/20 00:30 67 30 125/54 (77) 89 05/30/20 00:00 97.7 65 27 124/56 (78) 93 05/30/20 00:00 72 05/30/20 00:00 Mechanical Ventilator 05/30/20 00:00 100 05/29/20 23:50 66 38 100 05/29/20 22:30 98.2 98 22 98/62 90 Mechanical Ventilator 100 05/29/20 22:00 98.1 71 26 128/72 90 Mechanical Ventilator 100 05/29/20 21:00 97.8 76 25 132/82 91 Mechanical Ventilator 100 05/29/20 20:40 22 128/79 Mechanical Ventilator 100 05/29/20 20:00 97.6 62 22 126/78 90 Mechanical Ventilator 100 05/29/20 19:40 24 108/75 Mechanical Ventilator 100 05/29/20 19:34 63 27 100 05/29/20 18:12 30 106/72 Mechanical Ventilator 100 05/29/20 17:12 28 96/68 Mechanical Ventilator 100 05/29/20 16:12 25 105/72 Mechanical Ventilator 100.0 100 05/29/20 16:00 70 24 103/62 89 Mechanical Ventilator 100.0 100 05/29/20 15:57 26 95/59 Mechanical Ventilator 100 05/29/20 15:28 68 24 100 05/29/20 14:57 30 106/69 Mechanical Ventilator 100 05/29/20 14:00 97.8 66 26 98/60 87 Mechanical Ventilator 100.0 100 05/29/20 13:57 25 98/60 Mechanical Ventilator 100 05/29/20 12:57 26 101/60 Mechanical Ventilator 100 05/29/20 12:32 66 18 100 05/29/20 12:00 98.1 75 29 99/58 81 Mechanical Ventilator 100.0 100 05/29/20 11:57 26 99/58 Mechanical Ventilator 100 05/29/20 10:57 29 108/72 Mechanical Ventilator 100 05/29/20 10:56 27 101/64 Mechanical Ventilator 100 05/29/20 10:02 24 104/69 Mechanical Ventilator 100 05/29/20 10:00 98.2 93 26 108/73 86 Mechanical Ventilator 100.0 100 Intake and Output 05/29/20 05/30/20 19:00 07:00 Intake Total 272.3 ml 176.4 ml Output Total 500 ml 370 ml Balance -227.7 ml -193.6 ml Intake Oral 0 ml IV Total 272.3 ml 176.4 ml Output Urine Total 500 ml 370 ml Laboratory Tests 05/29/20 23:35: Arterial Blood pH 7.439, Arterial Blood Partial Pressure CO2 40.3, Arterial Blood Partial Pressure O2 50.4L, Arterial Blood HCO3 26.7H, Arterial Blood Oxyg en Saturation 85.5*L, Arterial Blood Base Excess 2.4H, Jeremiah Test Positive 05/30/20 04:50: White Blood Count 9.5, Red Blood Count 3.86L, Hemoglobin 11.5L, Hematocrit 35.3L , Mean Corpuscular Volume 91, Mean Corpuscular Hemoglobin 29.9, Mean Corpuscular Hemoglobin Concent 32.7, Red Cell Distribution Width 14.2, Platelet Count 249, Mean Platelet Volume 6.9, Neutrophils (%) (Auto) 80.4H, Lymphocytes (%) (Auto) 12.9L, Monocytes (%) (Auto) 6.5, Eosinophils (%) (Auto) 0.0, Basophils (%) (Auto) 0.2, Sodium Level 140, Potassium Level 4.2, Chloride Level 105, Carbon Dioxide Level 29, Anion Gap 6, Blood Urea Nitrogen 26H, Creatinine 0.8, Estimat Glomerular Filtration Rate > 60, Glucose Level 171H, Calcium Level 8.8, Total Bilirubin 0.6, Direct Bilirubin 0.2, Aspartate Amino Transf (AST/SGOT) 67H, Alanine Aminotransferase (ALT/SGPT) 54, Alkaline Phosphatase 42L, Total Protein 6.7, Albumin 2.5L, Globulin 4.2, Albumin/Globulin Ratio 0.6L, Triglycerides Level 208H 05/30/20 07:58: Arterial Blood pH 7.451H, Arterial Blood Partial Pressure CO2 41.1, Arterial Blood Partial Pressure O2 57.3L, Arterial Blood HCO3 28.0H, Arterial Blood Oxygen Saturation 89.3*L, Arterial Blood Base Excess 3.7H, Jeremiah Test Positive Height (Feet): 5 Height (Inches): 6.00 Weight (Pounds): 220 General Appearance: lethargic EENT: normal ENT inspection Neck: normal alignment Cardiovascular: normal peripheral pulses, normal rate, regular rhythm Respiratory/Chest: chest wall non-tender, lungs clear, normal breath sounds Abdomen: normal bowel sounds Neurologic: motor weakness Skin: normal pigmentation, warm/dry Assessment/Plan Problem List: (1) Hypoxia ICD Codes: R09.02 - Hypoxemia SNOMED: 122611298 (2) Respiratory failure ICD Codes: J96.90 - Respiratory failure, unspecified, unspecified whether with hypoxia or hypercapnia SNOMED: 760316318 (3) Respiratory distress ICD Codes: R06.03 - Acute respiratory distress; J12.82 - Pneumonia due to coronavirus disease 2019 SNOMED: 091945057 (4) Pneumonia due to COVID-19 virus ICD Codes: U07.1 - COVID-19; J12.82 - Pneumonia due to coronavirus disease 2019 SNOMED: 118102030916029306 Status: unchanged Assessment/Plan: vent abx id pulm f/u cbc bmp am Tank Del Cid DO May 30, 2020 09:20
--- NOTE | 2020-05-30 09:23 | NUR ---
RADIOLOGY DEPT., CHEST X-RAY DONE.-P.DYE
--- NOTE | 2020-05-30 09:49 | Pulmonology Progress Note ---
Subjective Interval Events: Remains intubated Constitutional: Reports: no symptoms HEENT: Repors: no symptoms Respiratory: Reports: no symptoms Cardiovascular: Reports: no symptoms Gastrointestinal/Abdominal: Reports: no symptoms Genitourinary: Reports: no symptoms Allergies: Coded Allergies: No Known Allergies (Unverified , 05/28/20) All Systems: reviewed and negative except above Objective Last 24 Hour Vital Signs Date Time Temp Pulse Resp B/P (MAP) Pulse Ox O2 Delivery O2 Flow Rate FiO2 05/30/20 07:33 20 132/62 100 05/30/20 07:00 68 32 118/55 (76) 91 05/30/20 06:58 66 36 100 05/30/20 06:41 28 120/60 Mechanical Ventilator 100 05/30/20 06:30 70 31 118/55 (76) 91 05/30/20 06:30 70 31 05/30/20 06:00 64 31 124/56 (78) 92 05/30/20 06:00 100 05/30/20 05:41 26 124/53 Mechanical Ventilator 100 05/30/20 05:30 64 31 124/53 (76) 92 05/30/20 05:00 65 30 122/55 (77) 91 05/30/20 04:41 25 125/60 Mechanical Ventilator 100 05/30/20 04:30 65 30 134/58 (83) 92 05/30/20 04:09 27 121/60 26.0 100 05/30/20 04:00 Mechanical Ventilator 05/30/20 04:00 98.2 64 29 122/51 (74) 92 05/30/20 04:00 100 05/30/20 04:00 63 05/30/20 03:41 30 134/58 Mechanical Ventilator 100 05/30/20 03:30 63 29 121/56 (77) 92 05/30/20 03:00 66 30 121/53 (75) 91 05/30/20 02:41 30 121/56 Mechanical Ventilator 100 05/30/20 02:30 66 30 126/54 (78) 91 05/30/20 02:00 67 30 128/56 (80) 92 05/30/20 01:41 30 14/58 Mechanical Ventilator 100 05/30/20 01:30 67 31 121/53 (75) 91 05/30/20 01:20 66 34 100 05/30/20 01:00 66 30 126/54 (78) 91 05/30/20 00:41 30 125/63 Mechanical Ventilator 100 05/30/20 00:30 67 30 125/54 (77) 89 05/30/20 00:00 97.7 65 27 124/56 (78) 93 05/30/20 00:00 72 05/30/20 00:00 Mechanical Ventilator 05/30/20 00:00 100 05/29/20 23:50 66 38 100 05/29/20 22:30 98.2 98 22 98/62 90 Mechanical Ventilator 100 05/29/20 22:00 98.1 71 26 128/72 90 Mechanical Ventilator 100 05/29/20 21:00 97.8 76 25 132/82 91 Mechanical Ventilator 100 05/29/20 20:40 22 128/79 Mechanical Ventilator 100 05/29/20 20:00 97.6 62 22 126/78 90 Mechanical Ventilator 100 05/29/20 19:40 24 108/75 Mechanical Ventilator 100 05/29/20 19:34 63 27 100 05/29/20 18:12 30 106/72 Mechanical Ventilator 100 05/29/20 17:12 28 96/68 Mechanical Ventilator 100 05/29/20 16:12 25 105/72 Mechanical Ventilator 100.0 100 05/29/20 16:00 70 24 103/62 89 Mechanical Ventilator 100.0 100 05/29/20 15:57 26 95/59 Mechanical Ventilator 100 05/29/20 15:28 68 24 100 05/29/20 14:57 30 106/69 Mechanical Ventilator 100 05/29/20 14:00 97.8 66 26 98/60 87 Mechanical Ventilator 100.0 100 05/29/20 13:57 25 98/60 Mechanical Ventilator 100 05/29/20 12:57 26 101/60 Mechanical Ventilator 100 05/29/20 12:32 66 18 100 05/29/20 12:00 98.1 75 29 99/58 81 Mechanical Ventilator 100.0 100 05/29/20 11:57 26 99/58 Mechanical Ventilator 100 05/29/20 10:57 29 108/72 Mechanical Ventilator 100 05/29/20 10:56 27 101/64 Mechanical Ventilator 100 05/29/20 10:02 24 104/69 Mechanical Ventilator 100 05/29/20 10:00 98.2 93 26 108/73 86 Mechanical Ventilator 100.0 100 Intake and Output 05/29/20 05/30/20 19:00 07:00 Intake Total 272.3 ml 176.4 ml Output Total 500 ml 370 ml Balance -227.7 ml -193.6 ml Intake Oral 0 ml IV Total 272.3 ml 176.4 ml Output Urine Total 500 ml 370 ml General Appearance: no acute distress HEENT: normocephalic Respiratory: chest wall non-tender Cardiovascular: normal peripheral pulses Abdomen: normal bowel sounds Microbiology Date/Time Source Procedure Growth Status 05/28/20 11:18 Nasopharynx SARS-CoV-2 RdRp Gene Assay - Final Complete Laboratory Tests 05/29/20 23:35: Arterial Blood pH 7.439, Arterial Blood Partial Pressure CO2 40.3, Arterial Blood Partial Pressure O2 50.4L, Arterial Blood HCO3 26.7H, Arterial Blood Oxygen Saturation 85.5*L, Arterial Blood Base Excess 2.4H, Jeremiah Test Positive 05/30/20 04:50: White Blood Count 9.5, Red Blood Count 3.86L, Hemoglobin 11.5L, Hematocrit 35.3L , Mean Corpuscular Volume 91, Mean Corpuscular Hemoglobin 29.9, Mean Corpuscular Hemoglobin Concent 32.7, Red Cell Distribution Width 14.2, Platelet Count 249, Mean Platelet Volume 6.9, Neutrophils (%) (Auto) 80.4H, Lymphocytes (%) (Auto) 12.9L, Monocytes (%) (Auto) 6.5, Eosinophils (%) (Auto) 0.0, Basophils (%) (Auto) 0.2, Sodium Level 140, Potassium Level 4.2, Chloride Level 105, Carbon Dioxide Level 29, Anion Gap 6, Blood Urea Nitrogen 26H, Creatinine 0.8, Estimat Glomerular Filtration Rate > 60, Glucose Level 171H, Calcium Level 8.8, Total Bilirubin 0.6, Direct Bilirubin 0.2, Aspartate Amino Transf (AST/SGOT) 67H, Alanine Aminotransferase (ALT/SGPT) 54, Alkaline Phosphatase 42L, Total Protein 6.7, Albumin 2.5L, Globulin 4.2, Albumin/Globulin Ratio 0.6L, Triglycerides Level 208H 05/30/20 07:58: Arterial Blood pH 7.451H, Arterial Blood Partial Pressure CO2 41.1, Arterial Blood Partial Pressure O2 57.3L, Arterial Blood HCO3 28.0H, Arterial Blood Oxygen Saturation 89.3*L, Arterial Blood Base Excess 3.7H, Jeremiah Test Positive Current Medications Medications (Trade) Dose Ordered Sig/Zelda Route PRN Reason Start Time Stop Time Status Last Admin Dose Admin Azithromycin 500 mg/Sodium Chloride 275 ml @ 275 mls/hr DAILY IV 05/29/20 09:00 06/05/20 08:59 05/29/20 08:19 Ceftriaxone Sodium 1 gm/ Sodium Chloride 55 ml @ 110 mls/hr DAILY IVPB 05/29/20 09:00 06/05/20 08:59 05/29/20 08:15 Chlorhexidine Gluconate (Inna-Hex 2%) 1 applic DAILY@2000 TOPIC 05/30/20 20:00 08/28/20 19:59 Dexamethasone Sodium Phosphate (Decadron 10mg/ ml Inj) 6 mg DAILY IV 05/29/20 09:00 06/06/20 09:01 05/29/20 08:15 Dextrose/Sodium Chloride 1,000 ml @ 75 mls/hr [id number] IV 05/30/20 00:30 06/29/20 00:29 05/30/20 00:41 Heparin Sodium/ Sodium Chloride (Heparin 1000 units/500ml Premix) 1,000 unit ADJUST PER PROTOCOL PRN IV Per rx protocol 05/30/20 00:30 Lidocaine HCl (Xylocaine 1% 30ml) 30 ml ADJUST PER PROTOCOL PRN INJ Per rx protocol 05/30/20 00:30 Morphine Sulfate (Morphine Sulfate) 2 mg Q2H PRN IVP For Pain 05/29/20 12:45 06/05/20 12:44 05/30/20 06:40 Propofol 100 ml @ 0 mls/hr Q12H IV 05/30/20 00:30 06/01/20 00:29 05/30/20 07:33 Remdesivir 100 mg/ Sodium Chloride 250 ml @ 250 mls/hr Q24H IV 05/29/20 16:00 06/01/20 16:59 05/29/20 16:34 Assessment/Plan Assessment/Plan 1. COVID-19 pneumonia -Intubated 05/28/20 - We will continue broad-spectrum antibiotics. - We will continue dexamethasone -Defer use of remdesivir to ID -Continue monitoring SaO2 and keep it >92% -Continue PEEP 14 - May need pressors -Continue propofol; Morphine added -Need to keep patient completely sedated. 2. Hyponatremia -Per primary MD 3. Elevated inflammatory markers -Continue Javier Gonzalez MD May 30, 2020 09:49
[2020-05-30] MEDS: dexAMETHasone 10mg/ml Inj IV SCH (10:06)
[2020-05-30] MEDS: cefTRIAXone 1 GM in NS 55 ML IVPB SCH (10:07)
[2020-05-30] MEDS: Midazolam HCl 50mg/10ml vial 100 MG in NS 180 ML IV PRN (10:30)
--- NOTE | 2020-05-30 10:40 | NUR ---
SKY CAP NOTE PT is currently intubated. SW spoke w/ pt's niece, Ericka Hall [phone] and obtained psychosocial information. Pt resides alone at [address] [place] [address]. Pt is single and does not have any children. PT has brothers and sisters who do not speak [place]ese. Ericka agreed to be the primary contact lens curve grinder and relay information to pt's siblings. PT was ambulatory w/o DME and independent w/ ADLs prior to admission. Pt does not have AD/POA. Pt does not have hx of substance abuse/mental illness. Pt remains full code.
--- NOTE | 2020-05-30 10:45 | NUR ---
CASE MANAGEMENT:REVIEW 50 YR OLD FEMALE BIBA FROM HOME CC: SOB X3 DAYS. SATS 50% ON RA SI:COVID PNEUMONIA 96.9 103 28 99/59 90% ON NON REBREATHER PH=7.40 PCO2=41.7 PO2-44.1 HCO3=25.5 O2 SAT-80.0 IS: PLACED ON BIPAP 15L/100% FIO2 ~ SATS 65% INTUBATED AND PLACED ON VENT W/100% FIO2 IV DECADRON IV ROCEPHIN IV AZITHROMYCIN IV REMDESIVIR X1 IV MORPHINE CHEST XRAY BLOOD CX : TO ICU DCP: FROM HOME
[2020-05-30] MEDS: Enoxaparin 40mg Inj SUBQ SCH (11:03)
--- NOTE | 2020-05-30 12:06 | Diagnostic Imaging Report ---
Indication: Shortness of breath Technique: One view of the chest Comparison: 05/29/2020 Findings: Bilateral infiltrates appear somewhat improved. Stable tube positions. Impression: Slightly improved, but persistent and stable extensive bilateral infiltrates
[2020-05-30] MEDS: Azithromycin 500 MG in NS 275 ML IV SCH (12:54)
[2020-05-30] MEDS: Maintenance Dose:Remdesivir 100mg/NS 230ml x 4 Doses IV SCH ×2 (16:22)
[2020-05-30] MEDS: Midazolam HCl 50mg/10ml vial 50 MG in NS 90 ML IV PRN ×2 (16:29→20:01)
[2020-05-30] MEDS: Dyna-Hex 2% Top Sol 2oz TOPIC SCH (21:00)
[2020-05-30] MEDS: LORazepam Inj 2mg/ml 1ml IV PRN (21:01)
--- NOTE | 2020-05-30 21:10 | NUR ---
NURSE NOTES: pt report received from Radha Patrick RN. pt condition remains unchanged. pt is alert and oriented times 0, sedated, however is able to open eyes to tactile stimuli. pt is trach vented, sating 96% O2, no further resp distress noted. pt is showing NSR on resource specialist teacher, no cardiac distress noted. pt bed is low, locked, armed, call light within reach, bed rails up times 3. will follow plan of care.
--- NOTE | 2020-05-30 23:30 | NUR ---
NURSE NOTES: pt still on versed for sedation. vital signs stable.
[2020-05-30] MEDS: fentaNYL 2500mcg/NS 250ml 250 ML IV SCH (23:45)
[2020-05-31] VITALS (49 sets, daily range): BP systolic 60–150; BP diastolic 40–75
--- NOTE | 2020-05-31 01:20 | NUR ---
NURSE NOTES: pt appears more calm after morphine. pt resting in bed.
--- NOTE | 2020-05-31 03:40 | NUR ---
NURSE NOTES: pt turned cleaned and repositioned. versed drip still running 20mg/hr. IV fluids 50cc an hr. Addendum: 05/31/20 at 0549 by JEREMI PENG RN WRONG TIME. Addendum: 05/31/20 at 0551 by JEREMI PENG RN NURSE NOTES: pt remains resting in bed. vital signs stable.
[2020-05-31] MEDS: Midazolam HCl 50mg/10ml vial 100 MG in NS 180 ML IV PRN ×4 (05:19→20:59)
[2020-05-31] MEDS: Morphine Sulfate 2mg/ml Inj(IV/IM USE ONLY) IVP PRN (05:31)
--- NOTE | 2020-05-31 05:50 | NUR ---
NURSE NOTES: pt turned cleaned and repositioned. versed drip still running 20mg/hr. IV fluids 50cc an hr.
[2020-05-31 07:05] LABS: BASOPHILS % (AUTO) 0.3 % (0.0-2.0); EOSINOPHILS % (AUTO) 0.1 % (0.0-3.0); HEMATOCRIT 34.2 % (37.0-47.0); HEMOGLOBIN 11.1 G/DL (12.0-16.0); LYMPHOCYTES % (AUTO) 13.2 % (20.0-45.0); MEAN CORPUSCULAR VOLUME 92 FL (80-99); MONOCYTES % (AUTO) 6.1 % (1.0-10.0); NEUTROPHILS % (AUTO) 80.4 % (45.0-75.0); PLATELET COUNT 250 K/UL (150-450); RED BLOOD COUNT 3.72 M/UL (4.20-5.40); RED CELL DISTRIBUTION WIDTH 14.3 % (11.6-14.8)
--- NOTE | 2020-05-31 07:20 | NUR ---
RESPIRATORY NOTE: PT RECEIVED STABLE ON CMV WITH CURRENT SETTINGS: AC/VC 15, 500, 100%, +14. ALARMS ARE ON AND AUDIBLE. VENT CIRCUIT IS SECURE AND OUT OF THE WAY. BILATERAL SOFT RESTRAINS SECURELY IN PLACE. AIRWAY IS SECURE AND PATENT. WILL CONTINUE TO CLOSELY MONITOR.
--- NOTE | 2020-05-31 07:27 | NUR ---
NURSE HAND-OFF REPORT: Latest Vital Signs: Temperature 98.9 , Pulse 103 , B/P 107 /74 , Respiratory Rate 23 , O2 SAT 98 , Endotracheal Tube, O2 Flow Rate . Vital Sign Comment: [stable] EKG Rhythm: Sinus Rhythm Rhythm change?: N MD Notified?: - MD Response: Latest Meyers Fall Score: 60 Fall Risk: High Risk Safety Measures: Call light Within Reach, Bed Alarm Zone 1, Side Rails Side Rails x2, Bed position Low and Locked. Fall Precautions: Door Sign Report given to [Luisa Ocasio RN].
--- NOTE | 2020-05-31 07:28 | NUR ---
NURSE NOTES: Received patient in bed. Lightly sedated with RASS -2. On mechanical vent FiO2 100%, orally intubated. OGT inplace, kept NPO per order. On bilateral soft wrist restraints. Peripheral IV noted, with IVF of D5NS running at 50ml/hour, and versed drip for sedation. Lennon cath inplace, with dark urine noted in drainage bag by gravity. Bed in lowest position. Airborne isolation observed. Will continue plan of care.
--- NOTE | 2020-05-31 07:41 | NUR ---
CASE MANAGEMENT:REVIEW 05/31/20 SI: COVID PNEUMONIA. INTUBATED 99.0 103 24 107/74 98% ON VENT SUPPORT W/100% FIO2 WBC+12.0 IS: VERSED GTT IV REMDESIVIR Q24HRS IV DECADRON Q24 IV ROCEPHIN Q24 IV AZITHROMYCIN Q24 LOVENOX SQ QD IVF@50/HR : ICU STATUS DCP: FROM HOME
[2020-05-31 08:10] LABS: ALANINE AMINOTRANSFERASE 46 U/L (12-78); ALBUMIN 2.7 G/DL (3.4-5.0); ALBUMIN/GLOBULIN RATIO 0.7 (1.0-2.7); ALKALINE PHOSPHATASE 57 U/L (46-116); ANION GAP 8 mmol/L (5-15); ASPARTATE AMINO TRANSFERASE 52 U/L (15-37); BILIRUBIN,DIRECT 0.2 MG/DL (0.0-0.3); BILIRUBIN,TOTAL 0.7 MG/DL (0.2-1.0); BLOOD UREA NITROGEN 26 mg/dL (7-18); CALCIUM 8.4 MG/DL (8.5-10.1); CARBON DIOXIDE 28 MMOL/L (21-32); CHLORIDE 110 MMOL/L (98-107); CREATININE 0.8 MG/DL (0.55-1.30); POTASSIUM 3.6 MMOL/L (3.5-5.1); SODIUM 146 MMOL/L (136-145)
--- NOTE | 2020-05-31 09:00 | NUR ---
NURSE NOTES: Oral care proved. Due meds given. Kept clean and dry.
--- NOTE | 2020-05-31 09:04 | General Progress Note ---
Subjective Constitutional: Reports: weakness Allergies: Coded Allergies: No Known Allergies (Unverified , 05/28/20) All Systems: reviewed and negative except above Subjective intubated sedatde in icu Objective Last 24 Hour Vital Signs Date Time Temp Pulse Resp B/P (MAP) Pulse Ox O2 Delivery O2 Flow Rate FiO2 05/31/20 07:00 103 24 107/74 (85) 98 05/31/20 07:00 23 Endotracheal Tube 100 05/31/20 06:30 86 31 05/31/20 06:01 98.9 05/31/20 06:00 80 24 107/40 (62) 96 05/31/20 06:00 25 Endotracheal Tube 100 05/31/20 05:19 25 100 05/31/20 05:00 79 24 142/57 (85) 95 05/31/20 04:00 Mechanical Ventilator 05/31/20 04:00 95 05/31/20 04:00 Endotracheal Tube 05/31/20 04:00 99.0 88 25 136/61 (86) 95 05/31/20 03:00 26 Endotracheal Tube 100 05/31/20 03:00 88 25 144/59 (87) 95 05/31/20 02:47 84 40 100 05/31/20 02:00 26 Endotracheal Tube 100 05/31/20 02:00 90 26 141/66 (91) 90 05/31/20 01:00 26 Endotracheal Tube 100 05/31/20 01:00 85 29 150/54 (86) 94 05/31/20 00:13 98.6 05/31/20 00:00 Mechanical Ventilator 05/31/20 00:00 25 Endotracheal Tube 100 05/31/20 00:00 99.2 76 29 125/55 (78) 90 05/31/20 00:00 88 05/30/20 23:09 77 36 100 05/30/20 23:02 100 05/30/20 23:00 76 29 133/66 (88) 90 05/30/20 23:00 26 Endotracheal Tube 100 05/30/20 22:29 30 Endotracheal Tube 100 05/30/20 22:00 30 Endotracheal Tube 100 05/30/20 22:00 76 30 123/66 (85) 92 05/30/20 21:31 75 24 150/59 96 05/30/20 21:15 30 Endotracheal Tube 100 05/30/20 21:01 68 25 148/59 93 05/30/20 21:00 67 30 148/59 (88) 93 05/30/20 21:00 30 100 05/30/20 20:45 30 Endotracheal Tube 100 05/30/20 20:30 30 Endotracheal Tube 05/30/20 20:15 30 Endotracheal Tube 100 05/30/20 20:01 32 Endotracheal Tube 100 05/30/20 20:00 30 Endotracheal Tube 100 05/30/20 20:00 70 05/30/20 20:00 99.1 67 31 150/63 (92) 93 05/30/20 19:45 30 Endotracheal Tube 100 05/30/20 19:22 69 30 100 05/30/20 19:15 30 Endotracheal Tube 100 05/30/20 19:00 68 30 143/62 (89) 93 05/30/20 19:00 30 Endotracheal Tube 100 05/30/20 18:45 30 Endotracheal Tube 100 05/30/20 18:30 30 Endotracheal Tube 100 05/30/20 18:15 30 Endotracheal Tube 100 05/30/20 18:00 68 29 144/64 (90) 93 05/30/20 18:00 30 Endotracheal Tube 100 05/30/20 17:45 30 100 05/30/20 17:30 30 Endotracheal Tube 100 05/30/20 17:15 30 Endotracheal Tube 100 05/30/20 17:00 69 29 137/62 (87) 92 05/30/20 17:00 30 Endotracheal Tube 100 05/30/20 17:00 30 137/62 Endotracheal Tube 100 05/30/20 16:45 30 Endotracheal Tube 100 05/30/20 16:29 26 Endotracheal Tube 100 05/30/20 16:00 69 05/30/20 16:00 28 137/60 Endotracheal Tube 100 05/30/20 16:00 99.5 05/30/20 16:00 65 28 137/60 (85) 93 05/30/20 16:00 Mechanical Ventilator 05/30/20 15:00 66 28 138/64 (88) 93 05/30/20 15:00 27 128/64 Endotracheal Tube 100 05/30/20 14:40 66 26 100 05/30/20 14:40 26 132/62 Endotracheal Tube 100 05/30/20 14:00 70 27 130/61 (84) 93 05/30/20 14:00 27 130/61 Endotracheal Tube 100 05/30/20 13:00 28 132/58 Endotracheal Tube 100 05/30/20 13:00 70 28 132/58 (82) 91 05/30/20 12:00 28 151/73 Endotracheal Tube 100 05/30/20 12:00 69 05/30/20 12:00 100.0 05/30/20 12:00 70 25 151/73 (99) 89 05/30/20 12:00 Mechanical Ventilator 05/30/20 11:59 72 05/30/20 11:30 31 153/81 Endotracheal Tube 100 05/30/20 11:02 20 133/59 Endotracheal Tube 100 05/30/20 11:00 68 28 153/81 (105) 91 05/30/20 11:00 28 133/59 Endotracheal Tube 100 05/30/20 10:45 72 31 100 05/30/20 10:30 30 Endotracheal Tube 100 05/30/20 10:00 27 132/63 Endotracheal Tube 100 05/30/20 10:00 66 27 126/58 (80) 93 Intake and Output 05/30/20 05/31/20 19:00 07:00 Intake Total 334.56 ml 870.486 ml Output Total 1100 ml 450 ml Balance -765.44 ml 420.486 ml Intake Oral 0 ml 0 ml IV Total 334.56 ml 870.486 ml Output Urine Total 1100 ml 450 ml Laboratory Tests 05/31/20 06:25: White Blood Count 12.0H, Red Blood Count 3.72L, Hemoglobin 11.1L, Hematocrit 34.2L, Mean Corpuscular Volume 92, Mean Corpuscular Hemoglobin 29.9, Mean Corpuscular Hemoglobin Concent 32.6, Red Cell Distribution Width 14.3, Platelet Count 250, Mean Platelet Volume 6.9, Neutrophils (%) (Auto) 80.4H, Lymphocytes (%) (Auto) 13.2L, Monocytes (%) (Auto) 6.1, Eosinophils (%) (Auto) 0.1, Basophils (%) (Auto) 0.3, Sodium Level 146H, Potassium Level 3.6, Chloride Level 110H, Carbon Dioxide Level 28, Anion Gap 8, Blood Urea Nitrogen 26H, Creatinine 0.8, Estimat Glomerular Filtration Rate > 60, Glucose Level 114H, Calcium Level 8.4L, Total Bilirubin 0.7, Direct Bilirubin 0.2, Aspartate Amino Transf (AST/SGOT) 52H, Alanine Aminotransferase (ALT/SGPT) 46, Alkaline Phosphatase 57, Total Protein 6.8, Albumin 2.7L, Globulin 4.1, Albumin/Globulin Ratio 0.7L Height (Feet): 5 Height (Inches): 6.00 Weight (Pounds): 220 General Appearance: lethargic EENT: PERRL/EOMI Neck: normal alignment Cardiovascular: normal peripheral pulses, normal rate, regular rhythm Respiratory/Chest: chest wall non-tender, lungs clear, normal breath sounds Abdomen: normal bowel sounds, non tender, soft Extremities: normal inspection Edema: no edema noted Arm (L), no edema noted Arm (R), no edema noted Leg (L), no edema noted Leg (R), no edema noted Pedal (L), no edema noted Pedal (R), no edema noted Generalized Neurologic: motor weakness Skin: normal pigmentation, warm/dry Assessment/Plan Problem List: (1) Hypoxia ICD Codes: R09.02 - Hypoxemia SNOMED: 259932193 (2) Respiratory failure ICD Codes: J96.90 - Respiratory failure, unspecified, unspecified whether with hypoxia or hypercapnia SNOMED: 770620709 (3) Respiratory distress ICD Codes: R06.03 - Acute respiratory distress; J12.82 - Pneumonia due to coronavirus disease 2019 SNOMED: 464069843 (4) Pneumonia due to COVID-19 virus ICD Codes: U07.1 - COVID-19; J12.82 - Pneumonia due to coronavirus disease 2019 SNOMED: 354889314896696120 Status: unchanged Assessment/Plan: vent abx id pulm f/u cbc bmp am Tank Del Cid DO May 31, 2020 09:04
[2020-05-31] MEDS: Enoxaparin 40mg Inj SUBQ SCH (09:11)
[2020-05-31] MEDS: dexAMETHasone 10mg/ml Inj IV SCH (09:11)
[2020-05-31] MEDS: Azithromycin 500 MG in NS 275 ML IV SCH (09:12)
[2020-05-31] MEDS: cefTRIAXone 1 GM in NS 55 ML IVPB SCH (09:12)
--- NOTE | 2020-05-31 11:00 | NUR ---
NURSE NOTES: Remains RASS -2, on versed drip at 20mg.
--- NOTE | 2020-05-31 11:30 | NUR ---
NURSE NOTES: Dr. Nava made aware regarding today's ABG result. No new order obtained at this time. Will continue current vent settings.
--- NOTE | 2020-05-31 12:27 | Infectious Diseases Prog Note ---
Assessment/Plan Assessment/Plan antibiotics : ceftriaxone, azithromycin, remdesivir A 1. covid 19 pneumonia on 100 % Fi O2 with 91 % saturation 2. respiratory failure P 1. continue remdesivir day 4 2. continue dexamethasone day 4 3. d/c azithromycin 4. continue isolation Subjective ROS Limited/Unobtainable: Yes Allergies: Coded Allergies: No Known Allergies (Unverified , 05/28/20) Objective Last 24 Hour Vital Signs Date Time Temp Pulse Resp B/P (MAP) Pulse Ox O2 Delivery O2 Flow Rate FiO2 05/31/20 11:00 27 Mechanical Ventilator 100 05/31/20 11:00 102 27 118/49 (72) 94 05/31/20 10:45 24 Mechanical Ventilator 100 05/31/20 10:30 98 27 118/63 (81) 96 05/31/20 10:00 28 Mechanical Ventilator 100 05/31/20 10:00 103 28 127/67 (87) 93 05/31/20 09:30 81 30 110/49 (69) 96 05/31/20 09:00 86 29 113/48 (69) 95 05/31/20 09:00 29 Non-Rebreather 100 05/31/20 08:30 100 27 119/53 (75) 95 05/31/20 08:15 102 27 118/61 (80) 94 05/31/20 08:00 29 Mechanical Ventilator 100 05/31/20 08:00 99.5 102 29 124/60 (81) 93 05/31/20 08:00 Mechanical Ventilator 05/31/20 07:45 106 27 123/51 (75) 93 05/31/20 07:45 109 05/31/20 07:30 106 29 119/44 (69) 91 05/31/20 07:20 91 38 100 05/31/20 07:15 86 28 127/52 (77) 95 05/31/20 07:00 103 24 107/74 (85) 98 05/31/20 07:00 23 Endotracheal Tube 100 05/31/20 06:30 86 31 05/31/20 06:01 98.9 05/31/20 06:00 80 24 107/40 (62) 96 05/31/20 06:00 25 Endotracheal Tube 100 05/31/20 05:19 25 100 05/31/20 05:00 79 24 142/57 (85) 95 05/31/20 04:00 Mechanical Ventilator 05/31/20 04:00 95 05/31/20 04:00 Endotracheal Tube 05/31/20 04:00 99.0 88 25 136/61 (86) 95 05/31/20 03:00 26 Endotracheal Tube 100 05/31/20 03:00 88 25 144/59 (87) 95 05/31/20 02:47 84 40 100 05/31/20 02:00 26 Endotracheal Tube 100 05/31/20 02:00 90 26 141/66 (91) 90 05/31/20 01:00 26 Endotracheal Tube 100 05/31/20 01:00 85 29 150/54 (86) 94 05/31/20 00:13 98.6 05/31/20 00:00 Mechanical Ventilator 05/31/20 00:00 25 Endotracheal Tube 100 05/31/20 00:00 99.2 76 29 125/55 (78) 90 05/31/20 00:00 88 05/30/20 23:09 77 36 100 05/30/20 23:02 100 05/30/20 23:00 76 29 133/66 (88) 90 05/30/20 23:00 26 Endotracheal Tube 100 05/30/20 22:29 30 Endotracheal Tube 100 05/30/20 22:00 30 Endotracheal Tube 100 05/30/20 22:00 76 30 123/66 (85) 92 05/30/20 21:31 75 24 150/59 96 05/30/20 21:15 30 Endotracheal Tube 100 05/30/20 21:01 68 25 148/59 93 05/30/20 21:00 67 30 148/59 (88) 93 05/30/20 21:00 30 100 05/30/20 20:45 30 Endotracheal Tube 100 05/30/20 20:30 30 Endotracheal Tube 05/30/20 20:15 30 Endotracheal Tube 100 05/30/20 20:01 32 Endotracheal Tube 100 05/30/20 20:00 30 Endotracheal Tube 100 05/30/20 20:00 70 05/30/20 20:00 99.1 67 31 150/63 (92) 93 05/30/20 19:45 30 Endotracheal Tube 100 05/30/20 19:22 69 30 100 05/30/20 19:15 30 Endotracheal Tube 100 05/30/20 19:00 68 30 143/62 (89) 93 05/30/20 19:00 30 Endotracheal Tube 100 05/30/20 18:45 30 Endotracheal Tube 100 05/30/20 18:30 30 Endotracheal Tube 100 05/30/20 18:15 30 Endotracheal Tube 100 05/30/20 18:00 68 29 144/64 (90) 93 05/30/20 18:00 30 Endotracheal Tube 100 05/30/20 17:45 30 100 05/30/20 17:30 30 Endotracheal Tube 100 05/30/20 17:15 30 Endotracheal Tube 100 05/30/20 17:00 69 29 137/62 (87) 92 05/30/20 17:00 30 Endotracheal Tube 100 05/30/20 17:00 30 137/62 Endotracheal Tube 100 05/30/20 16:45 30 Endotracheal Tube 100 05/30/20 16:29 26 Endotracheal Tube 100 05/30/20 16:00 69 05/30/20 16:00 28 137/60 Endotracheal Tube 100 05/30/20 16:00 99.5 05/30/20 16:00 65 28 137/60 (85) 93 05/30/20 16:00 Mechanical Ventilator 05/30/20 15:00 66 28 138/64 (88) 93 05/30/20 15:00 27 128/64 Endotracheal Tube 100 05/30/20 14:40 66 26 100 05/30/20 14:40 26 132/62 Endotracheal Tube 100 05/30/20 14:00 70 27 130/61 (84) 93 05/30/20 14:00 27 130/61 Endotracheal Tube 100 05/30/20 13:00 28 132/58 Endotracheal Tube 100 05/30/20 13:00 70 28 132/58 (82) 91 Height (Feet): 5 Height (Inches): 6.00 Weight (Pounds): 220 HEENT: other - intubated Microbiology Date/Time Source Procedure Growth Status 05/29/20 01:15 Rectum - Final NO CARBAPENEM-RESISTANT ENTEROBACTERI... Complete 05/29/20 01:15 Rectum VRE Culture - Final NO VANCOMYCIN RESISTANT ENTEROCOCCUS ... Complete 05/29/20 01:15 Nasal Nares MRSA Culture - Final NO METHICILLIN RESISTANT STAPH AUREUS... Complete Laboratory Tests Test 05/31/20 06:25 05/31/20 10:00 White Blood Count 12.0 K/UL (4.8-10.8) H Red Blood Count 3.72 M/UL (4.20-5.40) L Hemoglobin 11.1 G/DL (12.0-16.0) L Hematocrit 34.2 % (37.0-47.0) L Mean Corpuscular Volume 92 FL (80-99) Mean Corpuscular Hemoglobin 29.9 PG (27.0-31.0) Mean Corpuscular Hemoglobin Concent 32.6 G/DL (32.0-36.0) Red Cell Distribution Width 14.3 % (11.6-14.8) Platelet Count 250 K/UL (150-450) Mean Platelet Volume 6.9 FL (6.5-10.1) Neutrophils (%) (Auto) 80.4 % (45.0-75.0) H Lymphocytes (%) (Auto) 13.2 % (20.0-45.0) L Monocytes (%) (Auto) 6.1 % (1.0-10.0) Eosinophils (%) (Auto) 0.1 % (0.0-3.0) Basophils (%) (Auto) 0.3 % (0.0-2.0) Sodium Level 146 MMOL/L (136-145) H Potassium Level 3.6 MMOL/L (3.5-5.1) Chloride Level 110 MMOL/L (98-107) H Carbon Dioxide Level 28 MMOL/L (21-32) Anion Gap 8 mmol/L (5-15) Blood Urea Nitrogen 26 mg/dL (7-18) H Creatinine 0.8 MG/DL (0.55-1.30) Estimat Glomerular Filtration Rate > 60 mL/min (>60) Glucose Level 114 MG/DL (74-106) H Calcium Level 8.4 MG/DL (8.5-10.1) L Total Bilirubin 0.7 MG/DL (0.2-1.0) Direct Bilirubin 0.2 MG/DL (0.0-0.3) Aspartate Amino Transf (AST/SGOT) 52 U/L (15-37) H Alanine Aminotransferase (ALT/SGPT) 46 U/L (12-78) Alkaline Phosphatase 57 U/L (46-116) Total Protein 6.8 G/DL (6.4-8.2) Albumin 2.7 G/DL (3.4-5.0) L Globulin 4.1 g/dL Albumin/Globulin Ratio 0.7 (1.0-2.7) L Arterial Blood pH 7.413 (7.350-7.450) Arterial Blood Partial Pressure CO2 44.4 mmHg (35.0-45.0) Arterial Blood Partial Pressure O2 46.7 mmHg (75.0-100.0) Arterial Blood HCO3 27.7 mmol/L (22.0-26.0) H Arterial Blood Oxygen Saturation 79.9 % (95-100) *L Arterial Blood Base Excess 2.7 (-2-2) H Jeremiah Test Positive Current Medications Medications (Trade) Dose Ordered Sig/Zelda Route PRN Reason Start Time Stop Time Status Last Admin Dose Admin Azithromycin 500 mg/Sodium Chloride 275 ml @ 275 mls/hr DAILY IV 05/29/20 09:00 06/05/20 08:59 05/31/20 09:12 Ceftriaxone Sodium 1 gm/ Sodium Chloride 55 ml @ 110 mls/hr DAILY IVPB 05/29/20 09:00 06/05/20 08:59 05/31/20 09:12 Chlorhexidine Gluconate (Inna-Hex 2%) 1 applic DAILY@2000 TOPIC 05/30/20 20:00 08/28/20 19:59 05/30/20 21:00 Dexamethasone Sodium Phosphate (Decadron 10mg/ ml Inj) 6 mg DAILY IV 05/29/20 09:00 06/06/20 09:01 05/31/20 09:11 Dextrose/Sodium Chloride 1,000 ml @ 50 mls/hr Q20H IV 05/30/20 00:30 06/29/20 00:29 05/30/20 14:34 Enoxaparin Sodium (Lovenox) 40 mg DAILY SUBQ 05/30/20 10:00 08/28/20 09:59 05/31/20 09:11 Fentanyl Citrate 250 ml @ 1 mls/hr Q24H IV 05/30/20 23:45 06/01/20 23:44 Heparin Sodium/ Sodium Chloride (Heparin 1000 units/500ml Premix) 1,000 unit ADJUST PER PROTOCOL PRN IV Per rx protocol 05/30/20 00:30 05/31/20 23:59 Lidocaine HCl (Xylocaine 1% 30ml) 30 ml ADJUST PER PROTOCOL PRN INJ Per rx protocol 05/30/20 00:30 05/31/20 23:59 Lorazepam (Ativan 2mg/ml 1ml) 1 mg Q4H PRN IV For Anxiety 05/30/20 20:50 06/06/20 20:49 05/30/20 21:01 Midazolam HCl 100 mg/Sodium Chloride 200 ml @ 0 mls/hr Q24H PRN IV Restlessness 05/31/20 00:00 06/02/20 00:00 05/31/20 10:45 Morphine Sulfate (Morphine Sulfate) 2 mg Q2H PRN IVP For Pain 05/29/20 12:45 06/05/20 12:44 05/31/20 05:31 Remdesivir 100 mg/ Sodium Chloride 250 ml @ 250 mls/hr Q24H IV 05/29/20 16:00 06/01/20 16:59 05/30/20 16:22 Fili Mcelroy MD May 31, 2020 12:27
--- NOTE | 2020-05-31 13:00 | NUR ---
NURSE NOTES: Bedbath provided. No bowel movement noted at this time.
--- NOTE | 2020-05-31 14:18 | Pulmonology Progress Note ---
Subjective ROS Limited/Unobtainable: Yes Interval Events: Remains intubated Constitutional: Reports: no symptoms HEENT: Repors: no symptoms Respiratory: Reports: no symptoms Cardiovascular: Reports: no symptoms Gastrointestinal/Abdominal: Reports: no symptoms Genitourinary: Reports: no symptoms Allergies: Coded Allergies: No Known Allergies (Unverified , 05/28/20) All Systems: reviewed and negative except above Objective Last 24 Hour Vital Signs Date Time Temp Pulse Resp B/P (MAP) Pulse Ox O2 Delivery O2 Flow Rate FiO2 05/31/20 14:00 84 30 128/61 (83) 97 05/31/20 14:00 30 Mechanical Ventilator 100 05/31/20 13:45 95 28 133/53 (79) 97 05/31/20 13:30 76 29 131/59 (83) 97 05/31/20 13:15 79 28 131/58 (82) 97 05/31/20 13:00 28 Mechanical Ventilator 100 05/31/20 13:00 95 28 124/64 (84) 95 05/31/20 12:30 101 22 122/62 (82) 94 05/31/20 12:12 102 05/31/20 12:00 Mechanical Ventilator 05/31/20 12:00 26 Mechanical Ventilator 100 05/31/20 12:00 99.0 99 26 127/67 (87) 97 05/31/20 11:30 105 24 121/75 (90) 93 05/31/20 11:18 100 44 100 05/31/20 11:00 27 Mechanical Ventilator 100 05/31/20 11:00 102 27 118/49 (72) 94 05/31/20 10:45 24 Mechanical Ventilator 100 05/31/20 10:30 98 27 118/63 (81) 96 05/31/20 10:00 28 Mechanical Ventilator 100 05/31/20 10:00 103 28 127/67 (87) 93 05/31/20 09:30 81 30 110/49 (69) 96 05/31/20 09:00 86 29 113/48 (69) 95 05/31/20 09:00 29 Non-Rebreather 100 05/31/20 08:30 100 27 119/53 (75) 95 05/31/20 08:15 102 27 118/61 (80) 94 05/31/20 08:00 29 Mechanical Ventilator 100 05/31/20 08:00 99.5 102 29 124/60 (81) 93 05/31/20 08:00 Mechanical Ventilator 05/31/20 07:45 106 27 123/51 (75) 93 05/31/20 07:45 109 05/31/20 07:30 106 29 119/44 (69) 91 05/31/20 07:20 91 38 100 05/31/20 07:15 86 28 127/52 (77) 95 05/31/20 07:00 103 24 107/74 (85) 98 05/31/20 07:00 23 Endotracheal Tube 100 05/31/20 06:30 86 31 05/31/20 06:01 98.9 05/31/20 06:00 80 24 107/40 (62) 96 05/31/20 06:00 25 Endotracheal Tube 100 05/31/20 05:19 25 100 05/31/20 05:00 79 24 142/57 (85) 95 05/31/20 04:00 Mechanical Ventilator 05/31/20 04:00 95 05/31/20 04:00 Endotracheal Tube 05/31/20 04:00 99.0 88 25 136/61 (86) 95 05/31/20 03:00 26 Endotracheal Tube 100 05/31/20 03:00 88 25 144/59 (87) 95 05/31/20 02:47 84 40 100 05/31/20 02:00 26 Endotracheal Tube 100 05/31/20 02:00 90 26 141/66 (91) 90 05/31/20 01:00 26 Endotracheal Tube 100 05/31/20 01:00 85 29 150/54 (86) 94 05/31/20 00:13 98.6 05/31/20 00:00 Mechanical Ventilator 05/31/20 00:00 25 Endotracheal Tube 100 05/31/20 00:00 99.2 76 29 125/55 (78) 90 05/31/20 00:00 88 05/30/20 23:09 77 36 100 05/30/20 23:02 100 05/30/20 23:00 76 29 133/66 (88) 90 05/30/20 23:00 26 Endotracheal Tube 100 05/30/20 22:29 30 Endotracheal Tube 100 05/30/20 22:00 30 Endotracheal Tube 100 05/30/20 22:00 76 30 123/66 (85) 92 05/30/20 21:31 75 24 150/59 96 05/30/20 21:15 30 Endotracheal Tube 100 05/30/20 21:01 68 25 148/59 93 05/30/20 21:00 67 30 148/59 (88) 93 05/30/20 21:00 30 100 05/30/20 20:45 30 Endotracheal Tube 100 05/30/20 20:30 30 Endotracheal Tube 05/30/20 20:15 30 Endotracheal Tube 100 05/30/20 20:01 32 Endotracheal Tube 100 05/30/20 20:00 30 Endotracheal Tube 100 05/30/20 20:00 70 05/30/20 20:00 99.1 67 31 150/63 (92) 93 05/30/20 19:45 30 Endotracheal Tube 100 05/30/20 19:22 69 30 100 05/30/20 19:15 30 Endotracheal Tube 100 05/30/20 19:00 68 30 143/62 (89) 93 05/30/20 19:00 30 Endotracheal Tube 100 05/30/20 18:45 30 Endotracheal Tube 100 05/30/20 18:30 30 Endotracheal Tube 100 05/30/20 18:15 30 Endotracheal Tube 100 05/30/20 18:00 68 29 144/64 (90) 93 05/30/20 18:00 30 Endotracheal Tube 100 05/30/20 17:45 30 100 05/30/20 17:30 30 Endotracheal Tube 100 05/30/20 17:15 30 Endotracheal Tube 100 05/30/20 17:00 69 29 137/62 (87) 92 05/30/20 17:00 30 Endotracheal Tube 100 05/30/20 17:00 30 137/62 Endotracheal Tube 100 05/30/20 16:45 30 Endotracheal Tube 100 05/30/20 16:29 26 Endotracheal Tube 100 05/30/20 16:00 69 05/30/20 16:00 28 137/60 Endotracheal Tube 100 05/30/20 16:00 99.5 05/30/20 16:00 65 28 137/60 (85) 93 05/30/20 16:00 Mechanical Ventilator 05/30/20 15:00 66 28 138/64 (88) 93 05/30/20 15:00 27 128/64 Endotracheal Tube 100 05/30/20 14:40 66 26 100 05/30/20 14:40 26 132/62 Endotracheal Tube 100 Intake and Output 05/30/20 05/31/20 19:00 07:00 Intake Total 334.56 ml 870.486 ml Output Total 1100 ml 450 ml Balance -765.44 ml 420.486 ml Intake Oral 0 ml 0 ml IV Total 334.56 ml 870.486 ml Output Urine Total 1100 ml 450 ml General Appearance: no acute distress HEENT: normocephalic Respiratory: chest wall non-tender Cardiovascular: normal peripheral pulses Abdomen: normal bowel sounds Microbiology Date/Time Source Procedure Growth Status 05/29/20 01:15 Rectum - Final NO CARBAPENEM-RESISTANT ENTEROBACTERI... Complete 05/29/20 01:15 Rectum VRE Culture - Final NO VANCOMYCIN RESISTANT ENTEROCOCCUS ... Complete 05/29/20 01:15 Nasal Nares MRSA Culture - Final NO METHICILLIN RESISTANT STAPH AUREUS... Complete Laboratory Tests 05/31/20 06:25: White Blood Count 12.0H, Red Blood Count 3.72L, Hemoglobin 11.1L, Hematocrit 34.2L, Mean Corpuscular Volume 92, Mean Corpuscular Hemoglobin 29.9, Mean Cor puscular Hemoglobin Concent 32.6, Red Cell Distribution Width 14.3, Platelet Count 250, Mean Platelet Volume 6.9, Neutrophils (%) (Auto) 80.4H, Lymphocytes (%) (Auto) 13.2L, Monocytes (%) (Auto) 6.1, Eosinophils (%) (Auto) 0.1, Basophils (%) (Auto) 0.3, Sodium Level 146H, Potassium Level 3.6, Chloride Level 110H, Carbon Dioxide Level 28, Anion Gap 8, Blood Urea Nitrogen 26H, Creatinine 0.8, Estimat Glomerular Filtration Rate > 60, Glucose Level 114H, Calcium Level 8.4L, Total Bilirubin 0.7, Direct Bilirubin 0.2, Aspartate Amino Transf (AST/SGOT) 52H, Alanine Aminotransferase (ALT/SGPT) 46, Alkaline Phosphatase 57, Total Protein 6.8, Albumin 2.7L, Globulin 4.1, Albumin/Globulin Ratio 0.7L 05/31/20 10:00: Arterial Blood pH 7.413, Arterial Blood Partial Pressure CO2 44.4, Arterial Blood Partial Pressure O2 46.7*L, Arterial Blood HCO3 27.7H, Arterial Blood Oxygen Saturation 79.9*L, Arterial Blood Base Excess 2.7H, Jeremiah Test Positive Current Medications Medications (Trade) Dose Ordered Sig/Zelda Route PRN Reason Start Time Stop Time Status Last Admin Dose Admin Ceftriaxone Sodium 1 gm/ Sodium Chloride 55 ml @ 110 mls/hr DAILY IVPB 05/29/20 09:00 06/05/20 08:59 05/31/20 09:12 Chlorhexidine Gluconate (Inna-Hex 2%) 1 applic DAILY@2000 TOPIC 05/30/20 20:00 08/28/20 19:59 05/30/20 21:00 Dexamethasone Sodium Phosphate (Decadron 10mg/ ml Inj) 6 mg DAILY IV 05/29/20 09:00 06/06/20 09:01 05/31/20 09:11 Dextrose/Sodium Chloride 1,000 ml @ 50 mls/hr Q20H IV 05/30/20 00:30 06/29/20 00:29 05/30/20 14:34 Enoxaparin Sodium (Lovenox) 40 mg DAILY SUBQ 05/30/20 10:00 08/28/20 09:59 05/31/20 09:11 Fentanyl Citrate 250 ml @ 1 mls/hr Q24H IV 05/30/20 23:45 06/01/20 23:44 Heparin Sodium/ Sodium Chloride (Heparin 1000 units/500ml Premix) 1,000 unit ADJUST PER PROTOCOL PRN IV Per rx protocol 05/30/20 00:30 05/31/20 23:59 Lidocaine HCl (Xylocaine 1% 30ml) 30 ml ADJUST PER PROTOCOL PRN INJ Per rx protocol 05/30/20 00:30 05/31/20 23:59 Lorazepam (Ativan 2mg/ml 1ml) 1 mg Q4H PRN IV For Anxiety 05/30/20 20:50 06/06/20 20:49 05/30/20 21:01 Midazolam HCl 100 mg/Sodium Chloride 200 ml @ 0 mls/hr Q24H PRN IV Restlessness 05/31/20 00:00 06/02/20 00:00 05/31/20 10:45 Morphine Sulfate (Morphine Sulfate) 2 mg Q2H PRN IVP For Pain 05/29/20 12:45 06/05/20 12:44 05/31/20 05:31 Remdesivir 100 mg/ Sodium Chloride 250 ml @ 250 mls/hr Q24H IV 05/29/20 16:00 06/01/20 16:59 05/30/20 16:22 Assessment/Plan Assessment/Plan 1. COVID-19 pneumonia -Intubated 05/28/20 - We will continue broad-spectrum antibiotics. - We will continue dexamethasone -Defer use of remdesivir to ID -Continue monitoring SaO2 and keep it >92% -Continue PEEP 14; now down to 10 - May need pressors -Continue propofol; Morphine added -Need to keep patient completely sedated. 2. Hyponatremia -Per primary MD 3. Elevated inflammatory markers -Continue Lovenox Javier Nava MD May 31, 2020 14:18
--- NOTE | 2020-05-31 15:28 | Brief Operative Note ---
Immediate Post Operative Note Operative Note Pre-op Diagnosis: needs IV access Procedure: PICC Post-op Diagnosis: same as pre-op Surgeon: Cristian Villagomez Anesthesia: local Specimen: none Complications: none Fluids: none Implant(s) used?: No Bob Villagomez MD May 31, 2020 15:28
--- NOTE | 2020-05-31 15:30 | NUR ---
NURSE NOTES: PICC placement done by Dr. Vincent at bedside, with order noted that it's OK to use PICC line.
[2020-05-31] MEDS: D5NS 1,000 ML IV SCH (15:46)
[2020-05-31] MEDS: Maintenance Dose:Remdesivir 100mg/NS 230ml x 4 Doses IV SCH ×2 (16:09)
--- NOTE | 2020-05-31 17:30 | NUR ---
NURSE NOTES: Oral care provided.
--- NOTE | 2020-05-31 17:46 | Diagnostic Imaging Report ---
Indications: Needs long-term IV access Technique: Procedure performed at bedside. Procedural timeout performed. Ultrasound confirms patent compressible right basilic vein. Total sterile technique, including sterile probe cover and sterile gel, sterile gloves, hand hygiene, hat, mask,, sterile gown, large sterile drape, and preparation with 2% chlorhexidine utilized. Local anesthesia with 1% lidocaine. Under real-time ultrasound guidance, puncture basilic vein using 21-gauge needle, passage 0.018 guidewire, exchange for 4 Marshallese peel-away sheath. 4 Marshallese Bard dual-lumen power PICC cut to 44 cm. It was inserted through the peel-away sheath. Peel-away sheath and guidewire removed. Catheter fixed to the skin. Both catheter ports aspirated and flushed. Patient tolerated procedure well, without immediate complication. Followup chest x-ray obtained, documents catheter tip position at the cavoatrial junction Impression: Successful bedside placement of right arm PICC under sonographic guidance, as described above.
--- NOTE | 2020-05-31 19:26 | NUR ---
RADIOLOGY NOTE: RIGHT UPPER EXTREMITY PICC LINE PLACEMENT BY DR. YURI WARD AT 1424 HRS. FA
--- NOTE | 2020-05-31 19:30 | NUR ---
NURSE HAND-OFF REPORT: Latest Vital Signs: Temperature 99.5 , Pulse 70 , B/P 116 /53 , Respiratory Rate 34 , O2 SAT 97 , Mechanical Ventilator, fiO2 100% . Vital Sign Comment: lightly sedated RASS -2. EKG Rhythm: Sinus Rhythm Rhythm change?: N Latest Meyers Fall Score: 60 Fall Risk: High Risk Safety Measures: Call light Within Reach, Bed Alarm Zone 1, Side Rails Side Rails x2, Bed position Low and Locked. Fall Precautions: Door Sign Report given to Dudley Hernandez RN.
--- NOTE | 2020-05-31 19:40 | NUR ---
NURSE NOTES: Received report from RAKEL Moran. Pt is sedated on the bed and RASS -2. Pt has ETT and orally intubated. Vent dependent and setting with AC: 15, T:500, P14 and FiO2 100% and SaO2 97% noted. given suction and oral care. Pt has OGT. On NPO. Pt has Lennon cath and dark jordyn color urine urinated well. Iv site intact and no sign of infiltration noted. Pt has PICC line on Rt. upper arm PICC line. Dressing is clean and dry. on running with Versed drip @ 20mg/hr and D5NS @ 50cc/hr and NOTE RASS score -2. No wound noted. Noted BT: 100F by axillary. Keep cooling measure. Pt has bilateral soft restraint and checked comfort and circulation. Placed fall precaution. On proper isolation for COVID-19. Ativan 2mg medication get the pyxis but not using. Verify with pharmacist and return the medication to Pharmacy. Will continue to monitor any change of condition.
[2020-05-31] MEDS: Dyna-Hex 2% Top Sol 2oz TOPIC SCH (20:15)
--- NOTE | 2020-05-31 22:00 | NUR ---
NURSE NOTES: Pt is sedated on the bed and RASS -2. given suction and oral care. SaO2 94% with current Vent setting. Turn and reposition. Will continue to monitor any change of condition.
[2020-05-31] MEDS: Acetaminophen 650mg/20.3ml NG PRN (22:25)
[2020-05-31] MEDS: fentaNYL 2500mcg/NS 250ml 250 ML IV SCH (23:45)
[2020-06-01] VITALS (36 sets, daily range): BP systolic 109–138; BP diastolic 52–69
--- NOTE | 2020-06-01 | NUR ---
NURSE NOTES: Pt is sedated on the bed and RASS score -2. and on running with Versed drip @ 20mg/hr. Rechecked BT: 100.5F. Keep cooling measure. on monitor tech with SR. Turn and reposition. Will continue to monitor any change of condition.
[2020-06-01] MEDS: LORazepam Inj 2mg/ml 1ml IV PRN ×2 (00:18→08:15)
--- NOTE | 2020-06-01 02:00 | NUR ---
NURSE NOTES: Given suction and oral care. Turn and reposition. SaO2 98% with current Vent setting. Sedated Pt on the bed and RASS score -2. Placed fall precaution. Will continue to monitor any change of condition.
[2020-06-01] MEDS: Midazolam HCl 50mg/10ml vial 100 MG in NS 180 ML IV PRN ×3 (02:03→20:06)
--- NOTE | 2020-06-01 04:00 | NUR ---
NURSE NOTES: Morning care was done. Cleaned Pt and applied lotion and cream. Noted BT: 99.8F. Keep cooling measure. On NPO. SaO2 96% with current Vent setting. On school lunch monitor with SR. No sign of pain by FLACC scale. Will continue to monitor any change of condition.
--- NOTE | 2020-06-01 06:00 | NUR ---
NURSE NOTES: SaO2 97% with current Vent setting. Turn and reposition. Provided suction and oral care. Will continue to monitor any change of condition.
[2020-06-01 06:33] LABS: BASOPHILS % (AUTO) 0.4 % (0.0-2.0); HEMATOCRIT 33.9 % (37.0-47.0); HEMOGLOBIN 11.2 G/DL (12.0-16.0); LYMPHOCYTES % (AUTO) 9.3 % (20.0-45.0); MEAN CORPUSCULAR VOLUME 90 FL (80-99); MONOCYTES % (AUTO) 5.4 % (1.0-10.0); NEUTROPHILS % (AUTO) 84.8 % (45.0-75.0); PLATELET COUNT 228 K/UL (150-450); RED BLOOD COUNT 3.78 M/UL (4.20-5.40); RED CELL DISTRIBUTION WIDTH 16.2 % (11.6-14.8); WHITE BLOOD COUNT 9.4 K/UL (4.8-10.8)
--- NOTE | 2020-06-01 07:30 | NUR ---
NURSE NOTES: Patient received from Dudley ELLINGTON. Patient restless RASS +1 kicking legs and moving arms. Max on versed reached. Pharmacy called for Fentanyl. Cardiac sound benign. NSR on youth nutritional monitor. Breath sounds diminished. RR even and unlabored through ETT wiht ordered ventilator settings. Saturation 95-97%. Bowel sounds present. No residual from OGT. Abd soft. Radial pulses and pedal pulses present. BL soft wrist restraints on with good ROM, sensation and circulation. No edema present. RT UA PICC in place with dressing dry and intact and both ports flushing. Fluids and versed infusing. Side rails up x2, call light within reach, bed low and locked.
--- NOTE | 2020-06-01 07:30 | NUR ---
NURSE HAND-OFF REPORT: Latest Vital Signs: Temperature 99.8 , Pulse 66 , B/P 124 /61 , Respiratory Rate 27 , O2 SAT 97 , Mechanical Ventilator, O2 Flow Rate . Vital Sign Comment: EKG Rhythm: Sinus Rhythm Rhythm change?: N MD Notified?: - MD Response: Latest Meyers Fall Score: 60 Fall Risk: High Risk Safety Measures: Call light Within Reach, Bed Alarm Zone 1, Side Rails Side Rails x2, Bed position Low and Locked. Fall Precautions: Door Sign Report given to RAKEL Horvath. Pt si [id number] on the bed. RASS -2 and on running Versed drip @ 20mg/hr.
[2020-06-01 07:37] LABS: ALANINE AMINOTRANSFERASE 42 U/L (12-78); ALBUMIN 2.4 G/DL (3.4-5.0); ALBUMIN/GLOBULIN RATIO 0.6 (1.0-2.7); ALKALINE PHOSPHATASE 54 U/L (46-116); ANION GAP 6 mmol/L (5-15); ASPARTATE AMINO TRANSFERASE 43 U/L (15-37); BILIRUBIN,DIRECT 0.2 MG/DL (0.0-0.3); BILIRUBIN,TOTAL 0.9 MG/DL (0.2-1.0); BLOOD UREA NITROGEN 23 mg/dL (7-18); CALCIUM 8.1 MG/DL (8.5-10.1); CARBON DIOXIDE 28 MMOL/L (21-32); CHLORIDE 112 MMOL/L (98-107); CREATININE 0.7 MG/DL (0.55-1.30); POTASSIUM 4.4 MMOL/L (3.5-5.1); SODIUM 146 MMOL/L (136-145)
--- NOTE | 2020-06-01 08:41 | General Progress Note ---
Subjective Constitutional: Reports: weakness Allergies: Coded Allergies: No Known Allergies (Unverified , 05/28/20) All Systems: reviewed and negative except above Subjective intubated sedatde in icu Objective Last 24 Hour Vital Signs Date Time Temp Pulse Resp B/P (MAP) Pulse Ox O2 Delivery O2 Flow Rate FiO2 06/01/20 08:15 74 24 115/54 97 06/01/20 07:34 85 34 100 06/01/20 07:03 27 Mechanical Ventilator 100 06/01/20 07:00 29 Mechanical Ventilator 100 06/01/20 07:00 66 29 124/61 (82) 97 06/01/20 06:30 65 27 06/01/20 06:00 28 Mechanical Ventilator 100 06/01/20 06:00 70 27 128/61 (83) 97 06/01/20 05:00 28 Mechanical Ventilator 100 06/01/20 05:00 81 28 123/58 (79) 98 06/01/20 04:30 74 28 120/58 (78) 99 06/01/20 04:00 100 06/01/20 04:00 29 Mechanical Ventilator 100 06/01/20 04:00 99.8 72 29 120/58 (78) 98 06/01/20 04:00 Mechanical Ventilator 06/01/20 04:00 70 06/01/20 03:32 67 29 100 06/01/20 03:30 71 29 109/55 (73) 98 06/01/20 03:00 28 Mechanical Ventilator 100 06/01/20 03:00 67 28 126/57 (80) 97 06/01/20 02:30 64 26 124/53 (76) 98 06/01/20 02:03 27 Mechanical Ventilator 100 06/01/20 02:00 65 28 123/58 (79) 98 06/01/20 01:00 72 22 114/65 (81) 98 06/01/20 01:00 22 Mechanical Ventilator 100 06/01/20 00:48 73 27 114/65 98 06/01/20 00:30 89 28 111/54 (73) 90 06/01/20 00:18 85 22 117/57 100 06/01/20 00:00 100 06/01/20 00:00 32 Mechanical Ventilator 100 06/01/20 00:00 Mechanical Ventilator 06/01/20 00:00 83 06/01/20 00:00 100.5 84 32 114/55 (74) 90 05/31/20 23:30 77 29 128/64 (85) 90 05/31/20 23:24 73 31 100 05/31/20 23:00 25 Mechanical Ventilator 100 05/31/20 23:00 78 25 112/56 (74) 92 05/31/20 22:55 100.8 05/31/20 22:30 75 35 60/46 (51) 93 05/31/20 22:00 76 33 110/53 (72) 94 05/31/20 22:00 33 Mechanical Ventilator 100 05/31/20 21:30 101.5 77 29 111/49 (69) 95 05/31/20 21:00 75 28 113/51 (71) 97 05/31/20 21:00 28 Mechanical Ventilator 100 05/31/20 20:59 25 Mechanical Ventilator 95 05/31/20 20:30 77 25 95/48 (64) 95 05/31/20 20:00 34 Mechanical Ventilator 100 05/31/20 20:00 100.0 71 34 106/64 (78) 97 05/31/20 20:00 Mechanical Ventilator 05/31/20 20:00 77 05/31/20 20:00 100 05/31/20 19:54 77 32 100 05/31/20 19:30 70 34 116/53 (74) 97 05/31/20 19:00 30 Mechanical Ventilator 100 05/31/20 19:00 68 30 116/53 (74) 97 05/31/20 18:30 68 32 106/55 (72) 97 05/31/20 18:00 22 Mechanical Ventilator 100 05/31/20 18:00 79 22 122/57 (78) 97 05/31/20 17:30 70 29 117/54 (75) 98 05/31/20 17:00 28 Mechanical Ventilator 100 05/31/20 17:00 68 28 123/54 (77) 98 05/31/20 16:30 79 32 114/47 (69) 98 05/31/20 16:00 100 05/31/20 16:00 99.5 74 28 117/56 (76) 98 05/31/20 16:00 28 Mechanical Ventilator 100 05/31/20 16:00 Mechanical Ventilator 05/31/20 15:45 25 Mechanical Ventilator 100 05/31/20 15:31 76 05/31/20 15:30 82 24 124/57 (79) 100 05/31/20 15:15 70 27 124/57 (79) 99 05/31/20 15:05 69 30 100 05/31/20 15:00 74 25 122/57 (78) 99 05/31/20 15:00 25 Mechanical Ventilator 100 05/31/20 14:45 77 30 116/55 (75) 99 05/31/20 14:30 80 33 127/55 (79) 98 05/31/20 14:15 81 33 129/56 (80) 97 05/31/20 14:00 84 30 128/61 (83) 97 05/31/20 14:00 30 Mechanical Ventilator 100 05/31/20 13:45 95 28 133/53 (79) 97 05/31/20 13:30 76 29 131/59 (83) 97 05/31/20 13:15 79 28 131/58 (82) 97 05/31/20 13:00 28 Mechanical Ventilator 100 05/31/20 13:00 95 28 124/64 (84) 95 05/31/20 12:30 101 22 122/62 (82) 94 05/31/20 12:12 102 05/31/20 12:00 100 05/31/20 12:00 Mechanical Ventilator 05/31/20 12:00 26 Mechanical Ventilator 100 05/31/20 12:00 99.0 99 26 127/67 (87) 97 05/31/20 11:30 105 24 121/75 (90) 93 05/31/20 11:18 100 44 100 05/31/20 11:00 27 Mechanical Ventilator 100 05/31/20 11:00 102 27 118/49 (72) 94 05/31/20 10:45 24 Mechanical Ventilator 100 05/31/20 10:30 98 27 118/63 (81) 96 05/31/20 10:00 28 Mechanical Ventilator 100 05/31/20 10:00 103 28 127/67 (87) 93 05/31/20 09:30 81 30 110/49 (69) 96 05/31/20 09:00 86 29 113/48 (69) 95 05/31/20 09:00 29 Non-Rebreather 100 Intake and Output 05/31/20 06/01/20 19:00 07:00 Intake Total 1617.00 ml 998 ml Output Total 440 ml 600 ml Balance 1177.00 ml 398 ml Intake Oral 0 ml IV Total 1617.00 ml 998 ml Output Urine Total 440 ml 600 ml Laboratory Tests 05/31/20 10:00: Arterial Blood pH 7.413, Arterial Blood Partial Pressure CO2 44.4, Arterial Blood Partial Pressure O2 46.7*L, Arterial Blood HCO3 27.7H, Arterial Blood Oxygen Saturation 79.9*L, Arterial Blood Base Excess 2.7H, Jeremiah Test Positive 06/01/20 05:50: White Blood Count 9.4, Red Blood Count 3.78L, Hemoglobin 11.2L, Hematocrit 33.9L , Mean Corpuscular Volume 90, Mean Corpuscular Hemoglobin 29.5, Mean Corpuscular Hemoglobin Concent 33.0, Red Cell Distribution Width 16.2H, Platelet Count 228, Mean Platelet Volume 6.4L, Neutrophils (%) (Auto) 84.8H, Lymphocytes (%) (Auto) 9.3L, Monocytes (%) (Auto) 5.4, Eosinophils (%) (Auto) 0.0, Basophils (%) (Auto) 0.4, Sodium Level 146H, Potassium Level 4.4, Chloride Level 112H, Carbon Dioxide Level 28, Anion Gap 6, Blood Urea Nitrogen 23H, Creatinine 0.7, Estimat Glomerular Filtration Rate > 60, Glucose Level 170H, Calcium Level 8.1L, Total Bilirubin 0.9, Direct Bilirubin 0.2, Aspartate Amino Transf (AST/SGOT) 43H, Alanine Aminotransferase (ALT/SGPT) 42, Alkaline Phosphatase 54, Total Protein 6.7, Albumin 2.4L, Globulin 4.3, Albumin/Globulin Ratio 0.6L Height (Feet): 5 Height (Inches): 5.00 Weight (Pounds): 308 General Appearance: lethargic EENT: normal ENT inspection Neck: normal alignment Cardiovascular: normal peripheral pulses, normal rate, regular rhythm Respiratory/Chest: chest wall non-tender, lungs clear, normal breath sounds Abdomen: normal bowel sounds, non tender, soft Extremities: normal inspection Edema: no edema noted Arm (L), no edema noted Arm (R), no edema noted Leg (L), no edema noted Leg (R), no edema noted Pedal (L), no edema noted Pedal (R), no edema noted Generalized Neurologic: motor weakness Skin: normal pigmentation, warm/dry Assessment/Plan Problem List: (1) Hypoxia ICD Codes: R09.02 - Hypoxemia SNOMED: 974809703 (2) Respiratory failure ICD Codes: J96.90 - Respiratory failure, unspecified, unspecified whether with hypoxia or hypercapnia SNOMED: 167145616 (3) Respiratory distress ICD Codes: R06.03 - Acute respiratory distress; J12.82 - Pneumonia due to coronavirus disease 2019 SNOMED: 053917615 (4) Pneumonia due to COVID-19 virus ICD Codes: U07.1 - COVID-19; J12.82 - Pneumonia due to coronavirus disease 2019 SNOMED: 053733424430347252 Status: unchanged Assessment/Plan: vent abx id pulm f/u cbc bmp am Tank Del Cid DO Jun 01, 2020 08:41
--- NOTE | 2020-06-01 09:15 | Diagnostic Imaging Report ---
EXAM: XR Chest, 1 View CLINICAL HISTORY: Follow-up TECHNIQUE: Frontal view of the chest. COMPARISON: Chest radiograph May 30, 2020. FINDINGS/IMPRESSION: Endotracheal tube terminates 5.8 cm above the shun. Feeding tube terminates in the stomach. Bilateral airspace opacities, similar in appearance to previously, consistent with infiltrates. Suspect small effusions. No pneumothorax. Cardiomegaly. Calcified aorta.
[2020-06-01] MEDS: D5NS 1,000 ML IV SCH (09:24)
[2020-06-01] MEDS: cefTRIAXone 1 GM in NS 55 ML IVPB SCH (09:24)
[2020-06-01] MEDS: dexAMETHasone 10mg/ml Inj IV SCH (09:24)
[2020-06-01] MEDS: Enoxaparin 40mg Inj SUBQ SCH (09:25)
--- NOTE | 2020-06-01 10:00 | NUR ---
NURSE NOTES: Patient stable at this time. Restless. Will start Fentanyl when medication is available.
--- NOTE | 2020-06-01 10:23 | Infectious Diseases Prog Note ---
Assessment/Plan Assessment/Plan A 1. COVID19 pneumonia 2. Hypoxic respiratory failure 3. Morbid obesity P 1. continue remdesivir day 5 2. continue dexamethasone day 5 3. continue Rocephin 4. continue isolation Subjective ROS Limited/Unobtainable: Yes Constitutional: Reports: fever Neurologic: Reports: confusion, other - on restraint Allergies: Coded Allergies: No Known Allergies (Unverified , 05/28/20) Objective Last 24 Hour Vital Signs Date Time Temp Pulse Resp B/P (MAP) Pulse Ox O2 Delivery O2 Flow Rate FiO2 06/01/20 08:15 74 24 115/54 97 06/01/20 07:34 85 34 100 06/01/20 07:03 27 Mechanical Ventilator 100 06/01/20 07:00 29 Mechanical Ventilator 100 06/01/20 07:00 66 29 124/61 (82) 97 06/01/20 06:30 65 27 06/01/20 06:00 28 Mechanical Ventilator 100 06/01/20 06:00 70 27 128/61 (83) 97 06/01/20 05:00 28 Mechanical Ventilator 100 06/01/20 05:00 81 28 123/58 (79) 98 06/01/20 04:30 74 28 120/58 (78) 99 06/01/20 04:00 100 06/01/20 04:00 29 Mechanical Ventilator 100 06/01/20 04:00 99.8 72 29 120/58 (78) 98 06/01/20 04:00 Mechanical Ventilator 06/01/20 04:00 70 06/01/20 03:32 67 29 100 06/01/20 03:30 71 29 109/55 (73) 98 06/01/20 03:00 28 Mechanical Ventilator 100 06/01/20 03:00 67 28 126/57 (80) 97 06/01/20 02:30 64 26 124/53 (76) 98 06/01/20 02:03 27 Mechanical Ventilator 100 06/01/20 02:00 65 28 123/58 (79) 98 06/01/20 01:00 72 22 114/65 (81) 98 06/01/20 01:00 22 Mechanical Ventilator 100 06/01/20 00:48 73 27 114/65 98 06/01/20 00:30 89 28 111/54 (73) 90 06/01/20 00:18 85 22 117/57 100 06/01/20 00:00 100 06/01/20 00:00 32 Mechanical Ventilator 100 06/01/20 00:00 Mechanical Ventilator 06/01/20 00:00 83 06/01/20 00:00 100.5 84 32 114/55 (74) 90 05/31/20 23:30 77 29 128/64 (85) 90 05/31/20 23:24 73 31 100 05/31/20 23:00 25 Mechanical Ventilator 100 05/31/20 23:00 78 25 112/56 (74) 92 05/31/20 22:55 100.8 05/31/20 22:30 75 35 60/46 (51) 93 05/31/20 22:00 76 33 110/53 (72) 94 05/31/20 22:00 33 Mechanical Ventilator 100 05/31/20 21:30 101.5 77 29 111/49 (69) 95 05/31/20 21:00 75 28 113/51 (71) 97 05/31/20 21:00 28 Mechanical Ventilator 100 05/31/20 20:59 25 Mechanical Ventilator 95 05/31/20 20:30 77 25 95/48 (64) 95 05/31/20 20:00 34 Mechanical Ventilator 100 05/31/20 20:00 100.0 71 34 106/64 (78) 97 05/31/20 20:00 Mechanical Ventilator 05/31/20 20:00 77 05/31/20 20:00 100 05/31/20 19:54 77 32 100 05/31/20 19:30 70 34 116/53 (74) 97 05/31/20 19:00 30 Mechanical Ventilator 100 05/31/20 19:00 68 30 116/53 (74) 97 05/31/20 18:30 68 32 106/55 (72) 97 05/31/20 18:00 22 Mechanical Ventilator 100 05/31/20 18:00 79 22 122/57 (78) 97 05/31/20 17:30 70 29 117/54 (75) 98 05/31/20 17:00 28 Mechanical Ventilator 100 05/31/20 17:00 68 28 123/54 (77) 98 05/31/20 16:30 79 32 114/47 (69) 98 05/31/20 16:00 100 05/31/20 16:00 99.5 74 28 117/56 (76) 98 05/31/20 16:00 28 Mechanical Ventilator 100 05/31/20 16:00 Mechanical Ventilator 05/31/20 15:45 25 Mechanical Ventilator 100 05/31/20 15:31 76 05/31/20 15:30 82 24 124/57 (79) 100 05/31/20 15:15 70 27 124/57 (79) 99 05/31/20 15:05 69 30 100 05/31/20 15:00 74 25 122/57 (78) 99 05/31/20 15:00 25 Mechanical Ventilator 100 05/31/20 14:45 77 30 116/55 (75) 99 05/31/20 14:30 80 33 127/55 (79) 98 05/31/20 14:15 81 33 129/56 (80) 97 05/31/20 14:00 84 30 128/61 (83) 97 05/31/20 14:00 30 Mechanical Ventilator 100 05/31/20 13:45 95 28 133/53 (79) 97 05/31/20 13:30 76 29 131/59 (83) 97 05/31/20 13:15 79 28 131/58 (82) 97 05/31/20 13:00 28 Mechanical Ventilator 100 05/31/20 13:00 95 28 124/64 (84) 95 05/31/20 12:30 101 22 122/62 (82) 94 05/31/20 12:12 102 05/31/20 12:00 100 05/31/20 12:00 Mechanical Ventilator 05/31/20 12:00 26 Mechanical Ventilator 100 05/31/20 12:00 99.0 99 26 127/67 (87) 97 05/31/20 11:30 105 24 121/75 (90) 93 05/31/20 11:18 100 44 100 05/31/20 11:00 27 Mechanical Ventilator 100 05/31/20 11:00 102 27 118/49 (72) 94 05/31/20 10:45 24 Mechanical Ventilator 100 05/31/20 10:30 98 27 118/63 (81) 96 Height (Feet): 5 Height (Inches): 5.00 Weight (Pounds): 308 General Appearance: other - obese HEENT: other - orally intubated Respiratory/Chest: other - on ventilator, [id number]=482% Cardiovascular: normal rate, other - R arm PICC line Abdomen: soft, non tender Extremities: no edema Neurologic/Psychiatric: other - sedated Laboratory Tests Test 06/01/20 05:50 06/01/20 09:50 White Blood Count 9.4 K/UL (4.8-10.8) Red Blood Count 3.78 M/UL (4.20-5.40) L Hemoglobin 11.2 G/DL (12.0-16.0) L Hematocrit 33.9 % (37.0-47.0) L Mean Corpuscular Volume 90 FL (80-99) Mean Corpuscular Hemoglobin 29.5 PG (27.0-31.0) Mean Corpuscular Hemoglobin Concent 33.0 G/DL (32.0-36.0) Red Cell Distribution Width 16.2 % (11.6-14.8) H Platelet Count 228 K/UL (150-450) Mean Platelet Volume 6.4 FL (6.5-10.1) L Neutrophils (%) (Auto) 84.8 % (45.0-75.0) H Lymphocytes (%) (Auto) 9.3 % (20.0-45.0) L Monocytes (%) (Auto) 5.4 % (1.0-10.0) Eosinophils (%) (Auto) 0.0 % (0.0-3.0) Basophils (%) (Auto) 0.4 % (0.0-2.0) Sodium Level 146 MMOL/L (136-145) H Potassium Level 4.4 MMOL/L (3.5-5.1) Chloride Level 112 MMOL/L (98-107) H Carbon Dioxide Level 28 MMOL/L (21-32) Anion Gap 6 mmol/L (5-15) Blood Urea Nitrogen 23 mg/dL (7-18) H Creatinine 0.7 MG/DL (0.55-1.30) Estimat Glomerular Filtration Rate > 60 mL/min (>60) Glucose Level 170 MG/DL (74-106) H Calcium Level 8.1 MG/DL (8.5-10.1) L Total Bilirubin 0.9 MG/DL (0.2-1.0) Direct Bilirubin 0.2 MG/DL (0.0-0.3) Aspartate Amino Transf (AST/SGOT) 43 U/L (15-37) H Alanine Aminotransferase (ALT/SGPT) 42 U/L (12-78) Alkaline Phosphatase 54 U/L (46-116) Total Protein 6.7 G/DL (6.4-8.2) Albumin 2.4 G/DL (3.4-5.0) L Globulin 4.3 g/dL Albumin/Globulin Ratio 0.6 (1.0-2.7) L Arterial Blood pH 7.427 (7.350-7.450) Arterial Blood Partial Pressure CO2 44.3 mmHg (35.0-45.0) Arterial Blood Partial Pressure O2 66.4 mmHg (75.0-100.0) L Arterial Blood HCO3 28.5 mmol/L (22.0-26.0) H Arterial Blood Oxygen Saturation 91.7 % (95-100) L Arterial Blood Base Excess 3.7 (-2-2) H Jeremiah Test Positive Current Medications Medications (Trade) Dose Ordered Sig/Zelda Route PRN Reason Start Time Stop Time Status Last Admin Dose Admin Acetaminophen (Tylenol) 650 mg Q4H PRN NG Temp >100.5 05/31/20 21:45 06/30/20 21:44 05/31/20 22:25 Ceftriaxone Sodium 1 gm/ Sodium Chloride 55 ml @ 110 mls/hr DAILY IVPB 05/29/20 09:00 06/05/20 08:59 06/01/20 09:24 Chlorhexidine Gluconate (Inna-Hex 2%) 1 applic DAILY@2000 TOPIC 05/30/20 20:00 08/28/20 19:59 05/31/20 20:15 Dexamethasone Sodium Phosphate (Decadron 10mg/ ml Inj) 6 mg DAILY IV 05/29/20 09:00 06/06/20 09:01 06/01/20 09:24 Dextrose/Sodium Chloride 1,000 ml @ 50 mls/hr Q20H IV 05/30/20 00:30 06/29/20 00:29 06/01/20 09:24 Enoxaparin Sodium (Lovenox) 40 mg DAILY SUBQ 05/30/20 10:00 08/28/20 09:59 06/01/20 09:25 Fentanyl Citrate 250 ml @ 1 mls/hr Q24H IV 06/01/20 07:15 06/03/20 07:14 Lorazepam (Ativan 2mg/ml 1ml) 1 mg Q4H PRN IV For Anxiety 05/30/20 20:50 06/06/20 20:49 06/01/20 08:15 Midazolam HCl 100 mg/Sodium Chloride 200 ml @ 0 mls/hr Q24H PRN IV Restlessness 05/31/20 00:00 06/02/20 00:00 06/01/20 07:03 Morphine Sulfate (Morphine Sulfate) 2 mg Q2H PRN IVP For Pain 05/29/20 12:45 06/05/20 12:44 05/31/20 05:31 Remdesivir 100 mg/ Sodium Chloride 250 ml @ 250 mls/hr Q24H IV 05/29/20 16:00 06/01/20 16:59 05/31/20 16:09 Colt Arana MD Jun 01, 2020 10:22
[2020-06-01] MEDS: fentaNYL 2500mcg/NS 250ml 250 ML IV SCH (10:31)
[2020-06-01] MEDS: Acetaminophen 650mg/20.3ml NG PRN ×2 (10:32→16:05)
--- NOTE | 2020-06-01 12:00 | NUR ---
NURSE NOTES: Patient stable at this time. Rounded with Dr. Nava. No new orders.
--- NOTE | 2020-06-01 12:26 | Pulmonology Progress Note ---
Subjective ROS Limited/Unobtainable: Yes Interval Events: Remains intubated Constitutional: Reports: fever HEENT: Repors: no symptoms Respiratory: Reports: no symptoms Cardiovascular: Reports: no symptoms Gastrointestinal/Abdominal: Reports: no symptoms Genitourinary: Reports: no symptoms Allergies: Coded Allergies: No Known Allergies (Unverified , 05/28/20) All Systems: reviewed and negative except above Objective Last 24 Hour Vital Signs Date Time Temp Pulse Resp B/P (MAP) Pulse Ox O2 Delivery O2 Flow Rate FiO2 06/01/20 11:27 75 06/01/20 11:15 64 24 129/59 (82) 97 06/01/20 11:00 64 26 131/63 (85) 98 06/01/20 10:45 81 30 138/64 (88) 97 06/01/20 10:31 30 131/57 Endotracheal Tube 100 06/01/20 10:30 67 28 135/64 (87) 98 06/01/20 10:00 74 28 125/64 (84) 98 06/01/20 09:00 74 30 114/69 (84) 98 06/01/20 08:15 74 24 115/54 97 06/01/20 08:11 78 06/01/20 08:00 Mechanical Ventilator 06/01/20 08:00 102.0 78 33 115/57 (76) 97 06/01/20 08:00 100 06/01/20 07:34 85 34 100 06/01/20 07:03 27 Mechanical Ventilator 100 06/01/20 07:00 29 Mechanical Ventilator 100 06/01/20 07:00 66 29 124/61 (82) 97 06/01/20 06:30 65 27 06/01/20 06:00 28 Mechanical Ventilator 100 06/01/20 06:00 70 27 128/61 (83) 97 06/01/20 05:00 28 Mechanical Ventilator 100 06/01/20 05:00 81 28 123/58 (79) 98 06/01/20 04:30 74 28 120/58 (78) 99 06/01/20 04:00 100 06/01/20 04:00 29 Mechanical Ventilator 100 06/01/20 04:00 99.8 72 29 120/58 (78) 98 06/01/20 04:00 Mechanical Ventilator 06/01/20 04:00 70 06/01/20 03:32 67 29 100 06/01/20 03:30 71 29 109/55 (73) 98 06/01/20 03:00 28 Mechanical Ventilator 100 06/01/20 03:00 67 28 126/57 (80) 97 06/01/20 02:30 64 26 124/53 (76) 98 06/01/20 02:03 27 Mechanical Ventilator 100 06/01/20 02:00 65 28 123/58 (79) 98 06/01/20 01:00 72 22 114/65 (81) 98 06/01/20 01:00 22 Mechanical Ventilator 100 06/01/20 00:48 73 27 114/65 98 06/01/20 00:30 89 28 111/54 (73) 90 06/01/20 00:18 85 22 117/57 100 06/01/20 00:00 100 06/01/20 00:00 32 Mechanical Ventilator 100 06/01/20 00:00 Mechanical Ventilator 06/01/20 00:00 83 06/01/20 00:00 100.5 84 32 114/55 (74) 90 05/31/20 23:30 77 29 128/64 (85) 90 05/31/20 23:24 73 31 100 05/31/20 23:00 25 Mechanical Ventilator 100 05/31/20 23:00 78 25 112/56 (74) 92 05/31/20 22:55 100.8 05/31/20 22:30 75 35 60/46 (51) 93 05/31/20 22:00 76 33 110/53 (72) 94 05/31/20 22:00 33 Mechanical Ventilator 100 05/31/20 21:30 101.5 77 29 111/49 (69) 95 05/31/20 21:00 75 28 113/51 (71) 97 05/31/20 21:00 28 Mechanical Ventilator 100 05/31/20 20:59 25 Mechanical Ventilator 95 05/31/20 20:30 77 25 95/48 (64) 95 05/31/20 20:00 34 Mechanical Ventilator 100 05/31/20 20:00 100.0 71 34 106/64 (78) 97 05/31/20 20:00 Mechanical Ventilator 05/31/20 20:00 77 05/31/20 20:00 100 05/31/20 19:54 77 32 100 05/31/20 19:30 70 34 116/53 (74) 97 05/31/20 19:00 30 Mechanical Ventilator 100 05/31/20 19:00 68 30 116/53 (74) 97 05/31/20 18:30 68 32 106/55 (72) 97 05/31/20 18:00 22 Mechanical Ventilator 100 05/31/20 18:00 79 22 122/57 (78) 97 05/31/20 17:30 70 29 117/54 (75) 98 05/31/20 17:00 28 Mechanical Ventilator 100 05/31/20 17:00 68 28 123/54 (77) 98 05/31/20 16:30 79 32 114/47 (69) 98 05/31/20 16:00 100 05/31/20 16:00 99.5 74 28 117/56 (76) 98 05/31/20 16:00 28 Mechanical Ventilator 100 05/31/20 16:00 Mechanical Ventilator 05/31/20 15:45 25 Mechanical Ventilator 100 05/31/20 15:31 76 05/31/20 15:30 82 24 124/57 (79) 100 05/31/20 15:15 70 27 124/57 (79) 99 05/31/20 15:05 69 30 100 05/31/20 15:00 74 25 122/57 (78) 99 05/31/20 15:00 25 Mechanical Ventilator 100 05/31/20 14:45 77 30 116/55 (75) 99 05/31/20 14:30 80 33 127/55 (79) 98 05/31/20 14:15 81 33 129/56 (80) 97 05/31/20 14:00 84 30 128/61 (83) 97 05/31/20 14:00 30 Mechanical Ventilator 100 05/31/20 13:45 95 28 133/53 (79) 97 05/31/20 13:30 76 29 131/59 (83) 97 05/31/20 13:15 79 28 131/58 (82) 97 05/31/20 13:00 28 Mechanical Ventilator 100 05/31/20 13:00 95 28 124/64 (84) 95 05/31/20 12:30 101 22 122/62 (82) 94 Intake and Output 05/31/20 06/01/20 19:00 07:00 Intake Total 1617.00 ml 998 ml Output Total 440 ml 600 ml Balance 1177.00 ml 398 ml Intake Oral 0 ml IV Total 1617.00 ml 998 ml Output Urine Total 440 ml 600 ml General Appearance: no acute distress HEENT: normocephalic Respiratory: chest wall non-tender Cardiovascular: normal peripheral pulses Abdomen: normal bowel sounds Laboratory Tests 06/01/20 05:50: White Blood Count 9.4, Red Blood Count 3.78L, Hemoglobin 11.2L, Hematocrit 33.9L , Mean Corpuscular Volume 90, Mean Corpuscular Hemoglobin 29.5, Mean Corpuscular Hemoglobin Concent 33.0, Red Cell Distribution Width 16.2H, Platelet Count 228, Mean Platelet Volume 6.4L, Neutrophils (%) (Auto) 84.8H, Lymphocytes (%) (Auto) 9.3L, Monocytes (%) (Auto) 5.4, Eosinophils (%) (Auto) 0.0, Basophils (%) (Auto) 0.4, Sodium Level 146H, Potassium Level 4.4, Chloride Level 112H, Carbon Dioxide Level 28, Anion Gap 6, Blood Urea Nitrogen 23H, Creatinine 0.7, Estimat Glomer ular Filtration Rate > 60, Glucose Level 170H, Calcium Level 8.1L, Total Bilirubin 0.9, Direct Bilirubin 0.2, Aspartate Amino Transf (AST/SGOT) 43H, Alanine Aminotransferase (ALT/SGPT) 42, Alkaline Phosphatase 54, Total Protein 6.7, Albumin 2.4L, Globulin 4.3, Albumin/Globulin Ratio 0.6L 06/01/20 09:50: Arterial Blood pH 7.427, Arterial Blood Partial Pressure CO2 44.3, Arterial Blood Partial Pressure O2 66.4L, Arterial Blood HCO3 28.5H, Arterial Blood Oxygen Saturation 91.7L, Arterial Blood Base Excess 3.7H, Jeremiah Test Positive Current Medications Medications (Trade) Dose Ordered Sig/Zelda Route PRN Reason Start Time Stop Time Status Last Admin Dose Admin Acetaminophen (Tylenol) 650 mg Q4H PRN NG Temp >100.5 05/31/20 21:45 06/30/20 21:44 06/01/20 10:32 Ceftriaxone Sodium 1 gm/ Sodium Chloride 55 ml @ 110 mls/hr DAILY IVPB 05/29/20 09:00 06/05/20 08:59 06/01/20 09:24 Chlorhexidine Gluconate (Inna-Hex 2%) 1 applic DAILY@2000 TOPIC 05/30/20 20:00 08/28/20 19:59 05/31/20 20:15 Dexamethasone Sodium Phosphate (Decadron 10mg/ ml Inj) 6 mg DAILY IV 05/29/20 09:00 06/06/20 09:01 06/01/20 09:24 Dextrose/Sodium Chloride 1,000 ml @ 50 mls/hr Q20H IV 05/30/20 00:30 06/29/20 00:29 06/01/20 09:24 Enoxaparin Sodium (Lovenox) 40 mg DAILY SUBQ 05/30/20 10:00 08/28/20 09:59 06/01/20 09:25 Fentanyl Citrate 250 ml @ 1 mls/hr Q24H IV 06/01/20 07:15 06/03/20 07:14 06/01/20 10:31 Lorazepam (Ativan 2mg/ml 1ml) 1 mg Q4H PRN IV For Anxiety 05/30/20 20:50 06/06/20 20:49 06/01/20 08:15 Midazolam HCl 100 mg/Sodium Chloride 200 ml @ 0 mls/hr Q24H PRN IV Restlessness 05/31/20 00:00 06/02/20 00:00 06/01/20 07:03 Morphine Sulfate (Morphine Sulfate) 2 mg Q2H PRN IVP For Pain 05/29/20 12:45 06/05/20 12:44 05/31/20 05:31 Remdesivir 100 mg/ Sodium Chloride 250 ml @ 250 mls/hr Q24H IV 05/29/20 16:00 06/01/20 16:59 05/31/20 16:09 Assessment/Plan Assessment/Plan 1. COVID-19 pneumonia -Intubated 05/28/20 - We will continue broad-spectrum antibiotics. - We will continue dexamethasone -Defer use of remdesivir to ID -Continue monitoring SaO2 and keep it >92% -Continue PEEP 14; FiO2 100% - -will begin OGT feeding - May need pressors -Continue sedation -Need to keep patient completely sedated. 2. Hyponatremia -Per primary MD 3. Elevated inflammatory markers -Continue Lovenox Javier Nava MD Jun 01, 2020 12:26
--- NOTE | 2020-06-01 14:00 | NUR ---
NURSE NOTES: Patient stable at this time.
--- NOTE | 2020-06-01 16:00 | NUR ---
NURSE NOTES: Patient has sustained fever. Cooling measures applied and will give tylenol. Addendum: 06/01/20 at 1927 by LIVIA RIVERA RN Titrating Fentanyl down due to over sedation and patient desaturating to 83% despite suctioning and repositioning.
[2020-06-01] MEDS: Maintenance Dose:Remdesivir 100mg/NS 230ml x 4 Doses IV SCH ×2 (16:04)
--- NOTE | 2020-06-01 18:00 | NUR ---
NURSE NOTES: Patient repositioned. Well sedated at RASS -2.
--- NOTE | 2020-06-01 19:23 | NUR ---
NURSE HAND-OFF REPORT: Latest Vital Signs: Temperature 101.7 , Pulse 72 , B/P 115 /56 , Respiratory Rate 27 , O2 SAT 92 , Endotracheal Tube, O2 Flow Rate . Vital Sign Comment: STABLE. SEDATED. EKG Rhythm: Sinus Rhythm Rhythm change?: N MD Notified?: - MD Response: Latest Meyers Fall Score: 60 Fall Risk: High Risk Safety Measures: Call light Within Reach, Bed Alarm Zone 1, Side Rails Side Rails x2, Bed position Low and Locked. Fall Precautions: Door Sign Report given to Plan of care endorsed. Endorsed patient has a fever and to start feeding.
[2020-06-01] MEDS: Dyna-Hex 2% Top Sol 2oz TOPIC SCH (20:05)
--- NOTE | 2020-06-01 20:06 | NUR ---
NURSE NOTES: Received report from RAKEL Garcia. Pt is resting on the bed and agitated. Pt has ETT and orally intubated. Vent dependent and setting with AC: 15, T:500, P14 and FiO2 100% and SaO2 90% noted. Given suction and oral care. Pt has OGT. no residual noted. started OGT feeding with Vital AF @ 20cc/hr and goal is 60cc/hr. Pt has Lennon cath and dark jordyn color urine urinated well. Iv site intact and no sign of infiltration noted. Pt has PICC line on Rt. upper arm PICC line. Dressing is clean and dry. on running with Fentanyl drip @ 100mcg/hr and D5NS @ 50cc/hr and NOTE RASS score +2 started Versed drip @ 1mg/hr and will continue to monitor. No wound noted. Noted BT: 100.1F by axillary. Keep cooling measure. Pt has bilateral soft restraint and checked comfort and circulation. Placed fall precaution. On proper isolation for COVID-19. Will continue to care plan.
--- NOTE | 2020-06-01 21:14 | NUR ---
NURSE NOTES: Pt is sedated on the bed and RASS score -2. On running with Versed drip @ 10mg/hr. Renewed versed order. Discuss with pharmacist continue to use previous bag until hang in the next new bag. SaO2 97% with current Vent setting. Will continue to monitor any change of condition.
--- NOTE | 2020-06-01 22:00 | NUR ---
NURSE NOTES: Pt is sleeping on the bed and calm. SaO2 92% with current Vent setting. trying to release bilateral wrist soft restraint and successful. Turn and reposition. Will continue to monitor any change of condition.
[2020-06-02] VITALS (48 sets, daily range): BP systolic 108–149; BP diastolic 47–76
--- NOTE | 2020-06-02 00:06 | NUR ---
NURSE NOTES: Pt is sedated on the bed and RASS score -1, increased Versed drip @ 5mg/hr and on running with Fentanyl drip @100mcg/hr and D5NS @ 50cc/hr. noted good urine output via Lennon cath. SaO2 93 with current Vent setting. Pt is trying to touch ETT and OGT and PICC line. Given verbal cueing but didn't understand. Get order and applied bilateral soft wrist restraint. checked comfort and circulation. Placed fall precaution. Will continue to monitor any change of condition.
--- NOTE | 2020-06-02 02:00 | NUR ---
NURSE NOTES: noted 20cc residual. Increase OGT feeding with vital AF to 30cc/hr. noted good urine output. Keep cooling measure. Will continue to monitor any change of condition.
[2020-06-02] MEDS: Acetaminophen 650mg/20.3ml NG PRN ×3 (02:13→14:36)
--- NOTE | 2020-06-02 04:00 | NUR ---
NURSE NOTES: morning care was done. given bed bath. cleaned Pt and applied lotion and cream. SaO2 92% with current Vent setting. Provided suction and oral care. on bus monitor with SR. RASS score -2 and on running with Fentanyl and Versed drip as titrate. On running with OGT feeding with Vital AF @ 30cc/hr and no residual noted. Placed fall precaution. Will continue to care plan.
[2020-06-02] MEDS: D5NS 1,000 ML IV SCH ×2 (04:12→23:43)
--- NOTE | 2020-06-02 06:00 | NUR ---
NURSE NOTES: Oral care and suction was done. keep cooling measure. turn and reposition. will continue to monitor any change of condition.
[2020-06-02 06:50] LABS: HEMATOCRIT 36.8 % (37.0-47.0); HEMOGLOBIN 11.7 G/DL (12.0-16.0); MEAN CORPUSCULAR VOLUME 93 FL (80-99); PLATELET COUNT 140 K/UL (150-450); RED BLOOD COUNT 3.96 M/UL (4.20-5.40); RED CELL DISTRIBUTION WIDTH 14.8 % (11.6-14.8); WHITE BLOOD COUNT 11.6 K/UL (4.8-10.8)
[2020-06-02 06:57] LABS: ANION GAP 3 mmol/L (5-15); BLOOD UREA NITROGEN 27 mg/dL (7-18); CALCIUM 8.8 MG/DL (8.5-10.1); CARBON DIOXIDE 31 MMOL/L (21-32); CHLORIDE 111 MMOL/L (98-107); CREATININE 0.9 MG/DL (0.55-1.30); POTASSIUM 4.9 MMOL/L (3.5-5.1); SODIUM 145 MMOL/L (136-145)
[2020-06-02] MEDS: fentaNYL 2500mcg/NS 250ml 250 ML IV SCH ×2 (07:15→10:17)
--- NOTE | 2020-06-02 07:19 | NUR ---
NURSE HAND-OFF REPORT: Latest Vital Signs: Temperature 100.4 , Pulse 84 , B/P 114 /48 , Respiratory Rate 28 , O2 SAT 92 , Mechanical Ventilator, O2 Flow Rate . Vital Sign Comment: EKG Rhythm: Sinus Rhythm Rhythm change?: N Latest Meyers Fall Score: 60 Fall Risk: High Risk Safety Measures: Call light Within Reach, Bed Alarm Zone 1, Side Rails Side Rails x2, Bed position Low and Locked. Fall Precautions: Door Sign Report given to RAKEL Em. Pt is sedated on the bed and RASS -2 On running with Versed @ 6mg/hr and Fentanyl @ 100mcg/hr.
--- NOTE | 2020-06-02 07:20 | Pulmonology Progress Note ---
Subjective ROS Limited/Unobtainable: Yes Interval Events: Remains intubated Constitutional: Reports: fever HEENT: Repors: no symptoms Respiratory: Reports: no symptoms Cardiovascular: Reports: no symptoms Gastrointestinal/Abdominal: Reports: no symptoms Genitourinary: Reports: no symptoms Allergies: Coded Allergies: No Known Allergies (Unverified , 05/28/20) All Systems: reviewed and negative except above Objective Last 24 Hour Vital Signs Date Time Temp Pulse Resp B/P (MAP) Pulse Ox O2 Delivery O2 Flow Rate FiO2 06/02/20 07:00 84 28 114/48 (70) 92 06/02/20 06:36 28 124/60 Mechanical Ventilator 100 06/02/20 06:36 28 Mechanical Ventilator 100 06/02/20 06:30 81 28 06/02/20 06:30 81 28 124/60 (81) 93 06/02/20 06:00 81 28 112/54 (73) 92 06/02/20 05:36 27 125/53 Mechanical Ventilator 100 06/02/20 05:36 27 Mechanical Ventilator 100 06/02/20 05:30 82 27 125/53 (77) 91 06/02/20 05:00 85 26 124/50 (74) 93 06/02/20 04:36 29 121/53 Mechanical Ventilator 100 06/02/20 04:36 29 Mechanical Ventilator 100 06/02/20 04:30 100.4 84 29 121/53 (75) 92 06/02/20 04:00 89 30 120/53 (75) 92 06/02/20 04:00 76 06/02/20 04:00 Mechanical Ventilator 06/02/20 04:00 100 06/02/20 03:43 78 27 100 06/02/20 03:36 29 117/57 Mechanical Ventilator 100 06/02/20 03:36 29 Mechanical Ventilator 100 06/02/20 03:30 82 29 117/57 (77) 94 06/02/20 03:21 27 125/58 Mechanical Ventilator 100 06/02/20 03:21 27 Mechanical Ventilator 100 06/02/20 03:00 78 27 125/58 (80) 93 06/02/20 02:43 100.0 06/02/20 02:30 82 29 126/60 (82) 90 06/02/20 02:21 27 115/60 Mechanical Ventilator 100 06/02/20 02:21 27 Non-Rebreather 100 06/02/20 02:00 74 27 115/60 (78) 92 06/02/20 01:30 74 26 120/58 (78) 92 06/02/20 01:21 26 120/53 Mechanical Ventilator 100 06/02/20 01:21 26 Mechanical Ventilator 100 06/02/20 01:00 75 26 120/53 (75) 92 06/02/20 00:30 88 25 122/60 (80) 92 06/02/20 00:21 26 127/57 Mechanical Ventilator 100 06/02/20 00:21 26 Mechanical Ventilator 100 06/02/20 00:06 28 121/58 Mechanical Ventilator 100 06/02/20 00:06 28 Mechanical Ventilator 100 06/02/20 00:00 100 06/02/20 00:00 100.0 77 28 121/58 (79) 93 06/02/20 00:00 Mechanical Ventilator 06/02/20 00:00 70 06/01/20 23:51 74 28 100 06/01/20 23:30 73 26 119/58 (78) 91 06/01/20 23:06 26 111/59 Mechanical Ventilator 100 06/01/20 23:06 26 Mechanical Ventilator 100 06/01/20 23:00 72 26 111/59 (76) 92 06/01/20 22:30 71 27 123/56 (78) 92 06/01/20 22:06 26 123/58 Mechanical Ventilator 100 06/01/20 22:06 26 Mechanical Ventilator 100 06/01/20 22:00 72 26 123/58 (79) 92 06/01/20 21:30 71 27 116/60 (78) 92 06/01/20 21:06 27 124/55 Mechanical Ventilator 100 06/01/20 21:06 27 Mechanical Ventilator 100 06/01/20 21:00 71 27 124/55 (78) 92 06/01/20 20:51 27 104/58 Mechanical Ventilator 100 06/01/20 20:51 27 Mechanical Ventilator 100 06/01/20 20:36 27 118/59 Mechanical Ventilator 100 06/01/20 20:36 27 Mechanical Ventilator 100 06/01/20 20:30 71 28 118/59 (78) 91 06/01/20 20:21 27 112/51 Mechanical Ventilator 100 06/01/20 20:21 27 Mechanical Ventilator 100 06/01/20 20:06 28 124/56 Mechanical Ventilator 100 06/01/20 20:06 25 Mechanical Ventilator 100 06/01/20 20:00 74 06/01/20 20:00 100 06/01/20 20:00 100.1 73 28 123/56 (78) 90 06/01/20 20:00 Mechanical Ventilator 06/01/20 19:57 75 31 100 06/01/20 19:31 27 123/55 Mechanical Ventilator 100 06/01/20 19:00 101.7 72 27 115/56 (75) 92 06/01/20 18:31 27 117/54 Endotracheal Tube 100 06/01/20 18:00 72 26 115/55 (75) 93 06/01/20 17:31 27 119/53 Endotracheal Tube 100 06/01/20 17:30 73 29 119/53 (75) 94 06/01/20 17:00 73 28 113/52 (72) 94 06/01/20 17:00 101.7 06/01/20 16:31 29 118/49 Endotracheal Tube 100 06/01/20 16:16 28 102/48 Endotracheal Tube 100 06/01/20 16:01 28 111/56 100 06/01/20 16:00 Mechanical Ventilator 06/01/20 16:00 79 06/01/20 16:00 100 06/01/20 16:00 101.9 77 27 111/55 (73) 93 06/01/20 15:46 28 112/56 Endotracheal Tube 100 06/01/20 15:31 29 117/58 Endotracheal Tube 100 06/01/20 15:18 74 30 100 06/01/20 15:01 28 120/57 Endotracheal Tube 100 06/01/20 15:00 71 28 120/57 (78) 84 06/01/20 14:01 27 122/56 Endotracheal Tube 100 06/01/20 14:00 74 28 122/56 (78) 91 06/01/20 13:46 26 126/58 Endotracheal Tube 100 06/01/20 13:31 26 115/58 Endotracheal Tube 100 06/01/20 13:16 25 124/56 Endotracheal Tube 100 06/01/20 13:01 25 126/56 Endotracheal Tube 100 06/01/20 13:01 27 Endotracheal Tube 100 06/01/20 13:00 80 25 124/57 (79) 92 06/01/20 12:46 24 129/60 Endotracheal Tube 100 06/01/20 12:31 24 133/60 Endotracheal Tube 100 06/01/20 12:16 26 134/61 Endotracheal Tube 100 06/01/20 12:01 27 130/62 Endotracheal Tube 100 06/01/20 12:01 27 Endotracheal Tube 100 06/01/20 12:00 100 06/01/20 12:00 81 33 126/58 (80) 91 06/01/20 12:00 102.6 06/01/20 12:00 Mechanical Ventilator 06/01/20 11:46 26 134/63 Endotracheal Tube 100 06/01/20 11:31 24 125/58 Endotracheal Tube 100 06/01/20 11:29 66 26 100 06/01/20 11:27 75 06/01/20 11:16 25 129/59 Endotracheal Tube 100 06/01/20 11:15 64 24 129/59 (82) 97 06/01/20 11:02 102.0 06/01/20 11:01 27 131/63 Endotracheal Tube 100 06/01/20 11:01 27 Endotracheal Tube 100 06/01/20 11:00 64 26 131/63 (85) 98 06/01/20 10:46 26 138/64 Endotracheal Tube 100 06/01/20 10:45 81 30 138/64 (88) 97 06/01/20 10:31 30 131/57 Endotracheal Tube 100 06/01/20 10:30 67 28 135/64 (87) 98 06/01/20 10:00 28 Endotracheal Tube 100 06/01/20 10:00 Mechanical Ventilator 06/01/20 10:00 74 28 125/64 (84) 98 06/01/20 09:00 74 30 114/69 (84) 98 06/01/20 09:00 27 Endotracheal Tube 100 06/01/20 08:45 114 30 146/67 89 06/01/20 08:15 74 24 115/54 97 06/01/20 08:11 78 06/01/20 08:00 Mechanical Ventilator 06/01/20 08:00 102.0 78 33 115/57 (76) 97 06/01/20 08:00 100 06/01/20 08:00 30 97 06/01/20 07:34 85 34 100 Intake and Output 06/01/20 06/02/20 19:00 07:00 Intake Total 949.05 ml 1033.8 ml Output Total 775 ml 800 ml Balance 174.05 ml 233.8 ml IV Total 949.05 ml 763.8 ml Tube Feeding 270 ml Output Urine Total 775 ml 800 ml General Appearance: no acute distress HEENT: normocephalic Respiratory: chest wall non-tender Cardiovascular: normal peripheral pulses Abdomen: normal bowel sounds Laboratory Tests 06/01/20 09:50: Arterial Blood pH 7.427, Arterial Blood Partial Pressure CO2 44.3, Arterial Blood Partial Pressure O2 66.4L, Arterial Blood HCO3 28.5H, Arterial Blood Oxygen Saturation 91.7L, Arterial Blood Base Excess 3.7H, Jeremiah Test Positive 06/02/20 05:35: White Blood Count 11.6H, Red Blood Count 3.96L, Hemoglobin 11.7L, Hematocrit 36.8L, Mean Corpuscular Volume 93, Mean Corpuscular Hemoglobin 29.6, Mean Corpuscular Hemoglobin Concent 31.9L, Red Cell Distribution Width 14.8, Platelet Count 140L, Mean Platelet Volume 7.4, Neutrophils (%) (Auto) , Lymphocytes (%) (Auto) , Monocytes (%) (Auto) , Eosinophils (%) (Auto) , Basophils (%) (Auto) , Neutrophils % (Manual) [Pending], Lymphocytes % (Manual) [Pending], Platelet Estimate [Pending], Platelet Morphology [Pending], Sodium Level 145, Potassium Level 4.9, Chloride Level 111H, Carbon Dioxide Level 31, Anion Gap 3L, Blood Urea Nitrogen 27H, Creatinine 0.9, Estimat Glomerular Filtration Rate > 60, Glucose Level 157H, Calcium Level 8.8 Current Medications Medications (Trade) Dose Ordered Sig/Zelda Route PRN Reason Start Time Stop Time Status Last Admin Dose Admin Acetaminophen (Tylenol) 650 mg Q4H PRN NG Temp >100.5 05/31/20 21:45 06/30/20 21:44 06/02/20 02:13 Ceftriaxone Sodium 1 gm/ Sodium Chloride 55 ml @ 110 mls/hr DAILY IVPB 05/29/20 09:00 06/05/20 08:59 06/01/20 09:24 Chlorhexidine Gluconate (Inna-Hex 2%) 1 applic DAILY@1999 TOPIC 05/30/20 20:00 08/28/20 19:59 06/01/20 20:05 Dexamethasone Sodium Phosphate (Decadron 10mg/ ml Inj) 6 mg DAILY IV 05/29/20 09:00 06/06/20 09:01 06/01/20 09:24 Dextrose/Sodium Chloride 1,000 ml @ 50 mls/hr Q20H IV 05/30/20 00:30 06/29/20 00:29 06/02/20 04:12 Enoxaparin Sodium (Lovenox) 40 mg DAILY SUBQ 05/30/20 10:00 08/28/20 09:59 06/01/20 09:25 Fentanyl Citrate 250 ml @ 1 mls/hr Q24H IV 06/01/20 07:15 06/03/20 07:14 06/01/20 10:31 Lorazepam (Ativan 2mg/ml 1ml) 1 mg Q4H PRN IV For Anxiety 05/30/20 20:50 06/06/20 20:49 06/01/20 08:15 Midazolam HCl 100 mg/Sodium Chloride 200 ml @ 0 mls/hr Q24H PRN IV Restlessness 06/02/20 00:00 06/04/20 00:00 Morphine Sulfate (Morphine Sulfate) 2 mg Q2H PRN IVP For Pain 05/29/20 12:45 06/05/20 12:44 05/31/20 05:31 Assessment/Plan Assessment/Plan 1. COVID-19 pneumonia -Intubated 05/28/20 - We will continue broad-spectrum antibiotics. - We will continue dexamethasone -Defer use of remdesivir to ID -Continue monitoring SaO2 and keep it >92% -Continue PEEP 14; FiO2 100% - -will begin OGT feeding - May need pressors -Continue sedation -Need to keep patient completely sedated. 2. Hyponatremia -Per primary MD 3. Elevated inflammatory markers -Continue Lovenox Javier Nava MD Jun 02, 2020 07:20
--- NOTE | 2020-06-02 07:20 | NUR ---
NURSE NOTES: Pt received from RAKEL Buckner. Pt opens eyes when called by name for approx 5 sec; however, pt is unable to follow simple commands at this time. bilat pupils equal and round 2 mm with sluggish rxn to light; gag reflex intact. Pt is SR to closing manager with 2+ radial and dorsalis pedis pulses. generalized edema noted to extremities. cap refill less than 2 sec. Pt is orally intubated with a 7.5 ETT noted 23 cm at the lip with the following: AC 15 TV 500 FiO2 100 % Peep 5. (will f/u with ABG results). lung vela noted diminished upon auscultation. pt has right an OGT running vital AF 1.2 at 30 cc/hr (will titrate to goal as raphael). Abdomen is round and soft w/ active bowel sounds to all quadrants. F/C noted draining yellow urine. Skin is intact. Pt has a LH 22g and LW 18g IVs saline-locked and a LINDA PICC with dry and intact dressing running fentanyl gtt at 100 mcg/hr, versed gtt at 6 mg/hr, and D5NS at 50 cc/hr. LINE MOVER restraints on - radial pulses palpable, skin to both wrists intact without redness. Bed in lowest position, alarm on, side rails up x 2, call light within reach. Will continue to monitor.
--- NOTE | 2020-06-02 08:00 | NUR ---
NURSE NOTES: Pt repositioned. PO care provided. Oral temp noted 101 F. tylenol given and ice packs applied. Will reassess temp.
[2020-06-02] MEDS: cefTRIAXone 1 GM in NS 55 ML IVPB SCH (08:29)
[2020-06-02] MEDS: Enoxaparin 40mg Inj SUBQ SCH (08:30)
[2020-06-02] MEDS: dexAMETHasone 10mg/ml Inj IV SCH (08:30)
--- NOTE | 2020-06-02 09:00 | NUR ---
NURSE NOTES: Oral temp now 104.5 F. Continuing cooling measures.
--- NOTE | 2020-06-02 09:37 | NUR ---
NURSE NOTES: Message left for Dr Nava with this morning's ABG results. Awaiting call back.
--- NOTE | 2020-06-02 10:00 | NUR ---
NURSE NOTES: Pt repositioned. No distress noted.
--- NOTE | 2020-06-02 10:08 | NUR ---
NURSE NOTES: Dr Nava assessing pt at bedside. New vent settings ordered: increase peep to 16 and repeat ABGs in 30 min. RT Dar notified. Vent settings updated.
--- NOTE | 2020-06-02 11:14 | NUR ---
ABG results relayed to Dr Nava over phone - no vent setting changes order this time. Received order to draw ABGs tomorrow am.
--- NOTE | 2020-06-02 12:00 | NUR ---
NURSE NOTES: Pt repositioned. PO care provided. Oral temp 100 F. Cooling measure continued. No distress noted.
--- NOTE | 2020-06-02 12:30 | NUR ---
RD ASSESSMENT & RECOMMENDATIONS SEE CARE ACTIVITY FOR COMPLETE ASSESSMENT DAILY ESTIMATED NEEDS: Needs based on Critical care, obesity 11-14kcal/kg actual body wt (140kg) kcals/kg 1964-5679 total kcals 1.5-2.0g prot/kg IBW (64.5kg) g protein/kg 96-129 g total protein 25-30ml/kg abw (83kg) mL/kg 9546-2034 total fluid mLs NUTRITION DIAGNOSIS: Swallowing difficulty R/T respiratory failure as evidenced by pt orally intubated and sedated, NPO at this time. CURRENT TF: Vital 1.2 goal of 60ml/hr -> now @40ml ENTERAL NUTRITION RECOMMENDATIONS: Vital AF 1.2 @ 60ml/hr x 24 hrs (WITHOUT PROPOFOL RUNNING) to provide 1440ml, 1728kcal, 108g prot, 1168ml free water * As medically appropriate, obtain GI access, initiate critical care and carb controlled TF formula of Vital AF 1.2. * Initiate TF @ 20ml/hr x 6hrs, advance 10ml q 4-6 hrs as tolerated to goal * TF @ goal meeds 100% est kcal/prot needs * HOB over 30 degrees/ water flush per MD W/ PROPOFOL RUNNING @ CURRENT RATE OF 29.4ML/HR (PROVIDES ADDITIONAL 776 LIPID KCAL) -> rec Vital AF @ goal rate of 35ml/hr x 24 hrs to provide 840ml, 1008kcal from TF ADDITIONAL RECOMMENDATIONS: * Calibrated bedscale wt * Monitor Propofol rate, need for TF adjustment-> now off -> Trend triglyceride: 208 on 05/30 * NISS w/ TF: h/o DM, on Decadron + D5-> BG elevated * Monitor lytes, replete as needed
--- NOTE | 2020-06-02 14:00 | NUR ---
NURSE NOTES: Pt repositioned. No distress noted.
[2020-06-02] MEDS: Midazolam HCl 50mg/10ml vial 100 MG in NS 180 ML IV PRN (14:36)
--- NOTE | 2020-06-02 16:00 | NUR ---
NURSE NOTES: Pt repositioned. PO care provided. No distress noted.
--- NOTE | 2020-06-02 18:00 | NUR ---
NURSE NOTES: Pt repositioned and cleaned. Oral temp now 99 F. No distress noted. Will continue to monitor.
--- NOTE | 2020-06-02 18:29 | General Progress Note ---
Subjective Constitutional: Reports: weakness Allergies: Coded Allergies: No Known Allergies (Unverified , 05/28/20) All Systems: reviewed and negative except above Subjective intubated sedatde in icu Objective Last 24 Hour Vital Signs Date Time Temp Pulse Resp B/P (MAP) Pulse Ox O2 Delivery O2 Flow Rate FiO2 06/02/20 17:00 67 22 125/61 (82) 94 06/02/20 16:36 23 Mechanical Ventilator 100 06/02/20 16:36 23 118/55 Mechanical Ventilator 100 06/02/20 16:30 71 23 118/55 (76) 93 06/02/20 16:00 99.7 66 22 127/55 (79) 98 06/02/20 16:00 100 06/02/20 16:00 73 06/02/20 16:00 Mechanical Ventilator 06/02/20 15:55 70 20 100 06/02/20 15:36 21 Mechanical Ventilator 100 06/02/20 15:36 21 130/60 Mechanical Ventilator 100 06/02/20 15:30 75 22 129/59 (82) 92 06/02/20 15:06 100.0 06/02/20 15:00 76 22 126/63 (84) 93 06/02/20 14:36 26 Mechanical Ventilator 100 06/02/20 14:36 26 134/55 Mechanical Ventilator 100 06/02/20 14:36 26 Mechanical Ventilator 100 06/02/20 14:30 80 26 134/55 (81) 91 06/02/20 14:00 84 23 110/51 (70) 92 06/02/20 13:36 25 124/52 Mechanical Ventilator 100 06/02/20 13:36 25 Mechanical Ventilator 100 06/02/20 13:30 79 25 127/48 (74) 96 06/02/20 13:00 82 25 114/55 (74) 96 06/02/20 12:36 25 126/58 Mechanical Ventilator 100 06/02/20 12:36 25 Mechanical Ventilator 100 06/02/20 12:30 76 25 126/52 (76) 95 06/02/20 12:00 Mechanical Ventilator 06/02/20 12:00 76 06/02/20 12:00 100 06/02/20 12:00 100.0 78 25 123/53 (76) 95 06/02/20 11:36 28 115/52 Mechanical Ventilator 100 06/02/20 11:36 28 Mechanical Ventilator 100 06/02/20 11:30 77 25 110/57 (74) 96 06/02/20 11:00 83 26 110/52 (71) 95 06/02/20 10:40 77 25 100 06/02/20 10:36 27 106/50 Mechanical Ventilator 100 06/02/20 10:36 27 Mechanical Ventilator 100 06/02/20 10:30 78 27 114/52 (72) 97 06/02/20 10:17 27 116/56 Mechanical Ventilator 100 06/02/20 10:12 100 06/02/20 10:00 79 27 114/50 (71) 98 06/02/20 09:36 28 108/51 Mechanical Ventilator 100 06/02/20 09:36 28 Mechanical Ventilator 100 06/02/20 09:30 91 29 108/47 (67) 96 06/02/20 09:00 100.4 06/02/20 09:00 82 27 113/48 (69) 99 06/02/20 08:36 28 122/50 Mechanical Ventilator 100 06/02/20 08:36 28 Mechanical Ventilator 100 06/02/20 08:30 100.4 84 28 117/50 (72) 94 06/02/20 08:00 84 06/02/20 08:00 101.0 85 28 116/52 (73) 93 06/02/20 08:00 100 06/02/20 08:00 Mechanical Ventilator 06/02/20 07:55 83 29 100 06/02/20 07:36 27 118/56 Mechanical Ventilator 100 06/02/20 07:36 27 Mechanical Ventilator 100 06/02/20 07:30 83 28 124/52 (76) 93 06/02/20 07:00 84 28 114/48 (70) 92 06/02/20 06:36 28 124/60 Mechanical Ventilator 100 06/02/20 06:36 28 Mechanical Ventilator 100 06/02/20 06:30 81 28 06/02/20 06:30 81 28 124/60 (81) 93 06/02/20 06:00 81 28 112/54 (73) 92 06/02/20 05:36 27 125/53 Mechanical Ventilator 100 06/02/20 05:36 27 Mechanical Ventilator 100 06/02/20 05:30 82 27 125/53 (77) 91 06/02/20 05:00 85 26 124/50 (74) 93 06/02/20 04:36 29 121/53 Mechanical Ventilator 100 06/02/20 04:36 29 Mechanical Ventilator 100 06/02/20 04:30 100.4 84 29 121/53 (75) 92 06/02/20 04:00 89 30 120/53 (75) 92 06/02/20 04:00 76 06/02/20 04:00 Mechanical Ventilator 06/02/20 04:00 100 06/02/20 03:43 78 27 100 06/02/20 03:36 29 117/57 Mechanical Ventilator 100 06/02/20 03:36 29 Mechanical Ventilator 100 06/02/20 03:30 82 29 117/57 (77) 94 06/02/20 03:21 27 125/58 Mechanical Ventilator 100 06/02/20 03:21 27 Mechanical Ventilator 100 06/02/20 03:00 78 27 125/58 (80) 93 06/02/20 02:43 100.0 06/02/20 02:30 82 29 126/60 (82) 90 06/02/20 02:21 27 115/60 Mechanical Ventilator 100 06/02/20 02:21 27 Non-Rebreather 100 06/02/20 02:00 74 27 115/60 (78) 92 06/02/20 01:30 74 26 120/58 (78) 92 06/02/20 01:21 26 120/53 Mechanical Ventilator 100 06/02/20 01:21 26 Mechanical Ventilator 100 06/02/20 01:00 75 26 120/53 (75) 92 06/02/20 00:30 88 25 122/60 (80) 92 06/02/20 00:21 26 127/57 Mechanical Ventilator 100 06/02/20 00:21 26 Mechanical Ventilator 100 06/02/20 00:06 28 121/58 Mechanical Ventilator 100 06/02/20 00:06 28 Mechanical Ventilator 100 06/02/20 00:00 100 06/02/20 00:00 100.0 77 28 121/58 (79) 93 06/02/20 00:00 Mechanical Ventilator 06/02/20 00:00 70 06/01/20 23:51 74 28 100 06/01/20 23:30 73 26 119/58 (78) 91 06/01/20 23:06 26 111/59 Mechanical Ventilator 100 06/01/20 23:06 26 Mechanical Ventilator 100 06/01/20 23:00 72 26 111/59 (76) 92 06/01/20 22:30 71 27 123/56 (78) 92 06/01/20 22:06 26 123/58 Mechanical Ventilator 100 06/01/20 22:06 26 Mechanical Ventilator 100 06/01/20 22:00 72 26 123/58 (79) 92 06/01/20 21:30 71 27 116/60 (78) 92 06/01/20 21:06 27 124/55 Mechanical Ventilator 100 06/01/20 21:06 27 Mechanical Ventilator 100 06/01/20 21:00 71 27 124/55 (78) 92 06/01/20 20:51 27 104/58 Mechanical Ventilator 100 06/01/20 20:51 27 Mechanical Ventilator 100 06/01/20 20:36 27 118/59 Mechanical Ventilator 100 06/01/20 20:36 27 Mechanical Ventilator 100 06/01/20 20:30 71 28 118/59 (78) 91 06/01/20 20:21 27 112/51 Mechanical Ventilator 100 06/01/20 20:21 27 Mechanical Ventilator 100 06/01/20 20:06 28 124/56 Mechanical Ventilator 100 06/01/20 20:06 25 Mechanical Ventilator 100 06/01/20 20:00 74 06/01/20 20:00 100 06/01/20 20:00 100.1 73 28 123/56 (78) 90 06/01/20 20:00 Mechanical Ventilator 06/01/20 19:57 75 31 100 06/01/20 19:31 27 123/55 Mechanical Ventilator 100 06/01/20 19:00 101.7 72 27 115/56 (75) 92 06/01/20 18:31 27 117/54 Endotracheal Tube 100 Intake and Output 06/01/20 06/02/20 19:00 07:00 Intake Total 949.05 ml 1083.8 ml Output Total 775 ml 800 ml Balance 174.05 ml 283.8 ml IV Total 949.05 ml 813.8 ml Tube Feeding 270 ml Output Urine Total 775 ml 800 ml Laboratory Tests 06/02/20 05:35: White Blood Count 11.6H, Red Blood Count 3.96L, Hemoglobin 11.7L, Hematocrit 36.8L, Mean Corpuscular Volume 93, Mean Corpuscular Hemoglobin 29.6, Mean Corpuscular Hemoglobin Concent 31.9L, Red Cell Distribution Width 14.8, Platelet Count 140L, Mean Platelet Volume 7.4, Neutrophils (%) (Auto) , Lymphocytes (%) (Auto) , Monocytes (%) (Auto) , Eosinophils (%) (Auto) , Basophils (%) (Auto) , Differential Total Cells Counted 100, Neutrophils % (Manual) 80H, Lymphocytes % (Manual) 10L, Monocytes % (Manual) 10, Eosinophils % (Manual) 0, Basophils % (Manual) 0, Band Neutrophils 0, Platelet Estimate DecreasedL, Platelet Morphology Normal, Anisocytosis 1+, Sodium Level 145, Potassium Level 4.9, Chloride Level 111H, Carbon Dioxide Level 31, Anion Gap 3L, Blood Urea Nitrogen 27H, Creatinine 0.9, Estimat Glomerular Filtration Rate > 60, Glucose Level 157H , Calcium Level 8.8 06/02/20 09:09: Arterial Blood pH 7.357, Arterial Blood Partial Pressure CO2 48.6H, Arterial Blood Partial Pressure O2 47.7*L, Arterial Blood HCO3 26.7H, Arterial Blood Oxygen Saturation 82.7*L, Arterial Blood Base Excess 0.6, Jeremiah Test Positive 06/02/20 10:45: Arterial Blood pH 7.349L, Arterial Blood Partial Pressure CO2 54.0H, Arterial Blood Partial Pressure O2 52.1L, Arterial Blood HCO3 29.1H, Arterial Blood Oxygen Saturation 86.6*L, Arterial Blood Base Excess 2.5H, Jeremiah Test Positive Height (Feet): 5 Height (Inches): 5.00 Weight (Pounds): 308 General Appearance: lethargic EENT: normal ENT inspection Neck: normal alignment Cardiovascular: normal peripheral pulses, normal rate, regular rhythm Respiratory/Chest: chest wall non-tender, lungs clear, normal breath sounds Abdomen: normal bowel sounds, non tender, soft Extremities: normal inspection Edema: no edema noted Arm (L), no edema noted Arm (R), no edema noted Leg (L), no edema noted Leg (R), no edema noted Pedal (L), no edema noted Pedal (R), no edema noted Generalized Neurologic: motor weakness Skin: normal pigmentation, warm/dry Assessment/Plan Problem List: (1) Hypoxia ICD Codes: R09.02 - Hypoxemia SNOMED: 189360698 (2) Respiratory failure ICD Codes: J96.90 - Respiratory failure, unspecified, unspecified whether with hypoxia or hypercapnia SNOMED: 471619298 (3) Respiratory distress ICD Codes: R06.03 - Acute respiratory distress; J12.82 - Pneumonia due to coronavirus disease 2019 SNOMED: 325626732 (4) Pneumonia due to COVID-19 virus ICD Codes: U07.1 - COVID-19; J12.82 - Pneumonia due to coronavirus disease 2019 SNOMED: [id number] Status: unchanged Assessment/Plan: vent abx id pulm f/u cbc bmp am Tank Del Cid DO Jun 02, 2020 18:29
--- NOTE | 2020-06-02 18:56 | NUR ---
NURSE HAND-OFF REPORT: Latest Vital Signs: Temperature 99.0 , Pulse 64 , B/P 125 /52 , Respiratory Rate 20 , O2 SAT 93 , Mechanical Ventilator, FiO2 100 % . EKG Rhythm: Sinus Rhythm Rhythm change?: N MD Notified?: n/a MD Response: n/a Latest Meyers Fall Score: 50 Fall Risk: High Risk Safety Measures: Call light Within Reach, Bed Alarm Zone 1, Side Rails Side Rails x2, Bed position Low and Locked. Fall Precautions: Yellow Socks Yellow Gown Door Sign Patient Fall Education Report given to RAKEL Buckner.
--- NOTE | 2020-06-02 19:15 | NUR ---
NURSE NOTES: Received report from RAKEL Em. Pt is resting on the bed and agitated. Pt has ETT and orally intubated. Vent dependent and setting with AC: 15, T:500, P14 and FiO2 100% and SaO2 93-94% noted. Given suction and oral care. Pt has OGT on running with Vital AF @ 60cc/hr and No residual noted. Pt has Lennon cath and dark jordyn color urine urinated well. Iv site intact and no sign of infiltration noted. Pt has PICC line on Rt. upper arm PICC line. Dressing is clean and dry. on running with Fentanyl drip @ 100mcg/hr, Versed @ 6mg/hr and D5NS @ 50cc/hr and noted RASS score -2. No wound noted. Noted BT: 98.8F by Rectal. On cooling blanket. Pt has bilateral soft restraint and checked comfort and circulation. Placed fall precaution. On proper airborne isolation for COVID-19. Will continue to care plan.
[2020-06-02] MEDS: Dyna-Hex 2% Top Sol 2oz TOPIC SCH (19:59)
--- NOTE | 2020-06-02 22:00 | NUR ---
NURSE NOTES: Pt is sedated on the bed. SaO2 94% with current Vent setting. no fever noted. Provided oral care and suction. Turn and reposition. Will continue to monitor any change of condition.
[2020-06-03] VITALS (47 sets, daily range): BP systolic 123–163; BP diastolic 55–80
--- NOTE | 2020-06-03 | NUR ---
NURSE NOTES: Pt is sedated on the bed and RASS score -2. SaO2 93% with current Vent setting. Noted BT: 98.2F. tolerated well with current NGT feeding. Turn and reposition. On running with Versed @ 6mg/h and Fentanyl @ 90mcg/hr as titrate. Will continue to monitor any change of condition.
--- NOTE | 2020-06-03 02:00 | NUR ---
NURSE NOTES: SaO2 95% with current Vent setting. Turn and reposition. Tolerated well with OGT feeding. Placed fall precaution. Will continue to care plan.
--- NOTE | 2020-06-03 04:00 | NUR ---
NURSE NOTES: Morning care was done. cleaned Pt and applied lotion and cream. SaO2 95% with current Vent setting. Checked BT : 99.9F. Keep cooling measure. Tolerated well with OGT feeding. Given oral care and mouth care. Turn and reposition. Placed fall precaution. Will continue to care plan.
--- NOTE | 2020-06-03 06:00 | NUR ---
NURSE NOTES: Noted BT: 99.4F. Keep cooling measure. SaO2 92 with Current Vent setting AC: 15, T: 500, P16 and FIO2 100%. Given suction and oral care. Turn and reposition. Will continue to monitor any change of condition.
[2020-06-03 06:35] LABS: HEMATOCRIT 37.8 % (37.0-47.0); HEMOGLOBIN 11.8 G/DL (12.0-16.0); MEAN CORPUSCULAR VOLUME 94 FL (80-99); PLATELET COUNT 121 K/UL (150-450); RED BLOOD COUNT 4.04 M/UL (4.20-5.40); RED CELL DISTRIBUTION WIDTH 14.3 % (11.6-14.8); WHITE BLOOD COUNT 10.6 K/UL (4.8-10.8)
[2020-06-03] MEDS: Midazolam HCl 50mg/10ml vial 100 MG in NS 180 ML IV PRN (07:07)
--- NOTE | 2020-06-03 07:25 | NUR ---
NURSE HAND-OFF REPORT: Latest Vital Signs: Temperature 99.9 , Pulse 77 , B/P 133 /67 , Respiratory Rate 27 , O2 SAT 93 , Mechanical Ventilator, O2 Flow Rate . Vital Sign Comment: EKG Rhythm: Sinus Rhythm Rhythm change?: N Latest Meyers Fall Score: 50 Fall Risk: High Risk Safety Measures: Call light Within Reach, Bed Alarm Zone 1, Side Rails Side Rails x2, Bed position Low and Locked. Fall Precautions: Yellow Socks Yellow Gown Door Sign Patient Fall Education Report given to RAKEL Mejía. Pt is sedated on the bed and RASS -2. On running with Fentanyl @ 90mcg/hr, Versed @ 6mg/hr and D5NS @ 50cc/hr.
[2020-06-03 07:51] LABS: ANION GAP 3 mmol/L (5-15); BLOOD UREA NITROGEN 28 mg/dL (7-18); CALCIUM 8.8 MG/DL (8.5-10.1); CARBON DIOXIDE 31 MMOL/L (21-32); CHLORIDE 109 MMOL/L (98-107); CREATININE 0.7 MG/DL (0.55-1.30); POTASSIUM 4.6 MMOL/L (3.5-5.1); SODIUM 143 MMOL/L (136-145)
--- NOTE | 2020-06-03 09:12 | General Progress Note ---
Subjective Constitutional: Reports: weakness Allergies: Coded Allergies: No Known Allergies (Unverified , 05/28/20) All Systems: reviewed and negative except above Subjective intubated sedatde in icu Objective Last 24 Hour Vital Signs Date Time Temp Pulse Resp B/P (MAP) Pulse Ox O2 Delivery O2 Flow Rate FiO2 06/03/20 07:07 27 Mechanical Ventilator 100 06/03/20 07:00 99.2 77 27 133/67 (89) 93 06/03/20 06:51 27 Mechanical Ventilator 100 06/03/20 06:51 27 138/69 Mechanical Ventilator 100 06/03/20 06:30 70 27 06/03/20 06:30 70 28 123/73 (90) 92 06/03/20 06:00 74 29 129/69 (89) 94 06/03/20 05:51 29 Mechanical Ventilator 100 06/03/20 05:51 29 131/69 Mechanical Ventilator 100 06/03/20 05:30 75 30 130/64 (86) 92 06/03/20 05:00 73 29 133/69 (90) 93 06/03/20 04:51 29 Mechanical Ventilator 100 06/03/20 04:51 29 128/62 Mechanical Ventilator 100 06/03/20 04:30 76 29 127/69 (88) 95 06/03/20 04:00 100 06/03/20 04:00 99.9 74 29 133/65 (87) 95 06/03/20 04:00 Mechanical Ventilator 06/03/20 04:00 78 06/03/20 03:51 29 Mechanical Ventilator 100 06/03/20 03:51 29 132/64 Mechanical Ventilator 100 06/03/20 03:30 94 20 143/73 (96) 94 06/03/20 03:26 78 30 100 06/03/20 03:00 77 28 142/68 (92) 97 06/03/20 02:51 24 Mechanical Ventilator 100 06/03/20 02:51 24 127/77 Mechanical Ventilator 100 06/03/20 02:30 77 27 127/77 (94) 96 06/03/20 02:00 74 24 140/73 (95) 95 06/03/20 01:51 25 Mechanical Ventilator 100 06/03/20 01:51 25 137/72 Mechanical Ventilator 100 06/03/20 01:30 71 25 136/73 (94) 96 06/03/20 01:00 68 25 140/66 (90) 96 06/03/20 00:51 25 Mechanical Ventilator 100 06/03/20 00:51 25 137/72 Mechanical Ventilator 100 06/03/20 00:30 68 23 137/70 (92) 95 06/03/20 00:00 68 06/03/20 00:00 100 06/03/20 00:00 Mechanical Ventilator 06/03/20 00:00 98.2 67 23 136/74 (94) 96 06/02/20 23:51 23 Mechanical Ventilator 100 06/02/20 23:51 23 139/72 Mechanical Ventilator 100 06/02/20 23:30 65 23 131/71 (91) 95 06/02/20 23:14 69 23 100 06/02/20 23:00 68 23 144/72 (96) 94 06/02/20 22:51 24 Mechanical Ventilator 100 06/02/20 22:51 24 143/76 Mechanical Ventilator 100 06/02/20 22:30 68 24 141/70 (93) 94 06/02/20 22:00 69 22 146/76 (99) 92 06/02/20 21:51 24 Mechanical Ventilator 100 06/02/20 21:51 24 143/76 Mechanical Ventilator 100 06/02/20 21:30 70 24 149/75 (99) 93 06/02/20 21:00 60 19 131/53 (79) 95 06/02/20 20:51 19 Mechanical Ventilator 100 06/02/20 20:51 19 120/61 Mechanical Ventilator 100 06/02/20 20:36 19 Mechanical Ventilator 100 06/02/20 20:36 19 125/53 Mechanical Ventilator 100 06/02/20 20:30 59 19 126/60 (82) 95 06/02/20 20:00 61 06/02/20 20:00 98.0 62 19 125/53 (77) 95 06/02/20 20:00 Mechanical Ventilator 06/02/20 20:00 100 06/02/20 19:36 20 Mechanical Ventilator 100 06/02/20 19:36 20 128/55 Mechanical Ventilator 100 06/02/20 19:30 61 20 128/55 (79) 95 06/02/20 19:30 62 19 100 06/02/20 19:00 62 18 121/60 (80) 96 1/10/21 18:36 20 Mechanical Ventilator 100 06/02/20 18:36 20 125/52 Mechanical Ventilator 100 06/02/20 18:30 64 20 125/52 (76) 93 06/02/20 18:00 63 22 123/52 (75) 95 06/02/20 17:36 20 Mechanical Ventilator 100 06/02/20 17:36 20 123/57 Mechanical Ventilator 100 06/02/20 17:30 99.0 68 20 123/57 (79) 95 06/02/20 17:00 67 22 125/61 (82) 94 06/02/20 16:36 23 Mechanical Ventilator 100 06/02/20 16:36 23 118/55 Mechanical Ventilator 100 06/02/20 16:30 71 23 118/55 (76) 93 06/02/20 16:00 99.7 66 22 127/55 (79) 98 06/02/20 16:00 100 06/02/20 16:00 73 06/02/20 16:00 Mechanical Ventilator 06/02/20 15:55 70 20 100 06/02/20 15:36 21 Mechanical Ventilator 100 06/02/20 15:36 21 130/60 Mechanical Ventilator 100 06/02/20 15:30 75 22 129/59 (82) 92 06/02/20 15:06 100.0 06/02/20 15:00 76 22 126/63 (84) 93 06/02/20 14:36 26 Mechanical Ventilator 100 06/02/20 14:36 26 134/55 Mechanical Ventilator 100 06/02/20 14:36 26 Mechanical Ventilator 100 06/02/20 14:30 80 26 134/55 (81) 91 06/02/20 14:00 84 23 110/51 (70) 92 06/02/20 13:36 25 124/52 Mechanical Ventilator 100 06/02/20 13:36 25 Mechanical Ventilator 100 06/02/20 13:30 79 25 127/48 (74) 96 06/02/20 13:00 82 25 114/55 (74) 96 06/02/20 12:36 25 126/58 Mechanical Ventilator 100 06/02/20 12:36 25 Mechanical Ventilator 100 06/02/20 12:30 76 25 126/52 (76) 95 06/02/20 12:00 Mechanical Ventilator 06/02/20 12:00 76 06/02/20 12:00 100 06/02/20 12:00 100.0 78 25 123/53 (76) 95 06/02/20 11:36 28 115/52 Mechanical Ventilator 100 06/02/20 11:36 28 Mechanical Ventilator 100 06/02/20 11:30 77 25 110/57 (74) 96 06/02/20 11:00 83 26 110/52 (71) 95 06/02/20 10:40 77 25 100 06/02/20 10:36 27 106/50 Mechanical Ventilator 100 06/02/20 10:36 27 Mechanical Ventilator 100 06/02/20 10:30 78 27 114/52 (72) 97 06/02/20 10:17 27 116/56 Mechanical Ventilator 100 06/02/20 10:12 100 06/02/20 10:00 79 27 114/50 (71) 98 06/02/20 09:36 28 108/51 Mechanical Ventilator 100 06/02/20 09:36 28 Mechanical Ventilator 100 06/02/20 09:30 91 29 108/47 (67) 96 Intake and Output 06/02/20 06/03/20 19:00 07:00 Intake Total 1548.867 ml 1553.25 ml Output Total 720 ml 600 ml Balance 828.867 ml 953.25 ml Free Water 50 ml 10 ml IV Total 918.867 ml 823.25 ml Tube Feeding 580 ml 720 ml Output Urine Total 720 ml 600 ml Laboratory Tests 06/02/20 10:45: Arterial Blood pH 7.349L, Arterial Blood Partial Pressure CO2 54.0H, Arterial Blood Partial Pressure O2 52.1L, Arterial Blood HCO3 29.1H, Arterial Blood Oxygen Saturation 86.6*L, Arterial Blood Base Excess 2.5H, Jeremiah Test Positive 06/03/20 05:37: White Blood Count 10.6, Red Blood Count 4.04L, Hemoglobin 11.8L, Hematocrit 37.8, Mean Corpuscular Volume 94, Mean Corpuscular Hemoglobin 29.2, Mean Corpuscular Hemoglobin Concent 31.2L, Red Cell Distribution Width 14.3, Platelet Count 121L, Mean Platelet Volume 7.3, Neutrophils (%) (Auto) , Lymphocytes (%) (Auto) , Monocytes (%) (Auto) , Eosinophils (%) (Auto) , Basophils (%) (Auto) , Differential Total Cells Counted 100, Neutrophils % (Manual) 85H, Lymphocytes % (Manual) 10L, Monocytes % (Manual) 4, Eosinophils % (Manual) 1, Basophils % (Manual) 0, Band Neutrophils 0, Platelet Estimate DecreasedL, Platelet Morphology Normal, Hypochromasia 1+, Sodium Level 143, Potassium Level 4.6, Chloride Level 109H, Carbon Dioxide Level 31, Anion Gap 3L, Blood Urea Nitrogen 28H, Creatinine 0.7, Estimat Glomerular Filtration Rate > 60, Glucose Level 255H , Calcium Level 8.8 06/03/20 08:46: Arterial Blood pH 7.311L, Arterial Blood Partial Pressure CO2 59.2*H, Arterial Blood Partial Pressure O2 56.3L, Arterial Blood HCO3 29.2H, Arterial Blood Oxygen Saturation 86.7*L, Arterial Blood Base Excess 1.6, Jeremiah Test Positive Height (Feet): 5 Height (Inches): 5.00 Weight (Pounds): 308 General Appearance: lethargic EENT: normal ENT inspection Neck: normal alignment Cardiovascular: normal peripheral pulses, normal rate, regular rhythm Respiratory/Chest: chest wall non-tender, lungs clear, normal breath sounds Abdomen: normal bowel sounds, non tender, soft Extremities: normal inspection Edema: no edema noted Arm (L), no edema noted Arm (R), no edema noted Leg (L), no edema noted Leg (R), no edema noted Pedal (L), no edema noted Pedal (R), no edema noted Generalized Neurologic: motor weakness Skin: normal pigmentation, warm/dry Assessment/Plan Problem List: (1) Hypoxia ICD Codes: R09.02 - Hypoxemia SNOMED: 358921504 (2) Respiratory failure ICD Codes: J96.90 - Respiratory failure, unspecified, unspecified whether with hypoxia or hypercapnia SNOMED: 381887047 (3) Respiratory distress ICD Codes: R06.03 - Acute respiratory distress; J12.82 - Pneumonia due to co ronavirus disease 2019 SNOMED: 114607685 (4) Pneumonia due to COVID-19 virus ICD Codes: U07.1 - COVID-19; J12.82 - Pneumonia due to coronavirus disease 2019 SNOMED: 450663577399386649 Status: unchanged Assessment/Plan: vent abx id pulm f/u cbc bmp am Tank Del Cid DO Jun 03, 2020 09:12
--- NOTE | 2020-06-03 09:45 | NUR ---
NURSE NOTES: AM medications and informed of the purpose, use, and side effects of the medications, patient is sedated using versed drip and fentanyl drip to maintain at RASS scale of -2, will continue plan of care.
[2020-06-03] MEDS: Pantoprazole Inj IVP SCH (09:47)
[2020-06-03] MEDS: dexAMETHasone 10mg/ml Inj IV SCH (09:47)
[2020-06-03] MEDS: cefTRIAXone 1 GM in NS 55 ML IVPB SCH (09:47)
[2020-06-03] MEDS: Enoxaparin 40mg Inj SUBQ SCH (09:48)
--- NOTE | 2020-06-03 10:34 | NUR ---
NURSE NOTES: Dr. Mcelroy informed of the patient low grade fever this morning and leading into the afternoon, WBC count is lower at 10.6 on this morning blood draw, no verbal orders given at this time.
--- NOTE | 2020-06-03 11:30 | NUR ---
NURSE NOTES: Dr. Nava made aware of the patient ventilator settings remains at AC 15 TV: 500, FIO2 100% with peep of 16, no verbal orders given at this time and continue ventilator setting .
--- NOTE | 2020-06-03 11:35 | Pulmonology Progress Note ---
Subjective ROS Limited/Unobtainable: Yes Interval Events: Remains intubated Constitutional: Reports: fever HEENT: Repors: no symptoms Respiratory: Reports: no symptoms Cardiovascular: Reports: no symptoms Gastrointestinal/Abdominal: Reports: no symptoms Genitourinary: Reports: no symptoms Allergies: Coded Allergies: No Known Allergies (Unverified , 05/28/20) All Systems: reviewed and negative except above Objective Last 24 Hour Vital Signs Date Time Temp Pulse Resp B/P (MAP) Pulse Ox O2 Delivery O2 Flow Rate FiO2 06/03/20 11:00 84 29 142/78 (99) 88 06/03/20 10:30 87 28 163/74 (103) 93 06/03/20 10:00 84 31 155/67 (96) 85 06/03/20 09:30 80 29 142/73 (96) 84 06/03/20 09:00 78 28 138/70 (92) 80 06/03/20 08:30 79 29 140/71 (94) 72 06/03/20 08:00 100 06/03/20 08:00 Mechanical Ventilator 06/03/20 08:00 99.8 70 28 123/73 (90) 92 06/03/20 08:00 76 06/03/20 07:30 77 28 135/67 (89) 91 06/03/20 07:07 27 Mechanical Ventilator 100 06/03/20 07:00 99.2 77 27 133/67 (89) 93 06/03/20 06:51 27 Mechanical Ventilator 100 06/03/20 06:51 27 138/69 Mechanical Ventilator 100 06/03/20 06:30 70 27 06/03/20 06:30 70 28 123/73 (90) 92 06/03/20 06:00 74 29 129/69 (89) 94 06/03/20 05:51 29 Mechanical Ventilator 100 06/03/20 05:51 29 131/69 Mechanical Ventilator 100 06/03/20 05:30 75 30 130/64 (86) 92 06/03/20 05:00 73 29 133/69 (90) 93 06/03/20 04:51 29 Mechanical Ventilator 100 06/03/20 04:51 29 128/62 Mechanical Ventilator 100 06/03/20 04:30 76 29 127/69 (88) 95 06/03/20 04:00 100 06/03/20 04:00 99.9 74 29 133/65 (87) 95 06/03/20 04:00 Mechanical Ventilator 06/03/20 04:00 78 06/03/20 03:51 29 Mechanical Ventilator 100 06/03/20 03:51 29 132/64 Mechanical Ventilator 100 06/03/20 03:30 94 20 143/73 (96) 94 06/03/20 03:26 78 30 100 06/03/20 03:00 77 28 142/68 (92) 97 06/03/20 02:51 24 Mechanical Ventilator 100 06/03/20 02:51 24 127/77 Mechanical Ventilator 100 06/03/20 02:30 77 27 127/77 (94) 96 06/03/20 02:00 74 24 140/73 (95) 95 06/03/20 01:51 25 Mechanical Ventilator 100 06/03/20 01:51 25 137/72 Mechanical Ventilator 100 06/03/20 01:30 71 25 136/73 (94) 96 06/03/20 01:00 68 25 140/66 (90) 96 06/03/20 00:51 25 Mechanical Ventilator 100 06/03/20 00:51 25 137/72 Mechanical Ventilator 100 06/03/20 00:30 68 23 137/70 (92) 95 06/03/20 00:00 68 06/03/20 00:00 100 06/03/20 00:00 Mechanical Ventilator 06/03/20 00:00 98.2 67 23 136/74 (94) 96 06/02/20 23:51 23 Mechanical Ventilator 100 06/02/20 23:51 23 139/72 Mechanical Ventilator 100 06/02/20 23:30 65 23 131/71 (91) 95 06/02/20 23:14 69 23 100 06/02/20 23:00 68 23 144/72 (96) 94 06/02/20 22:51 24 Mechanical Ventilator 100 06/02/20 22:51 24 143/76 Mechanical Ventilator 100 06/02/20 22:30 68 24 141/70 (93) 94 06/02/20 22:00 69 22 146/76 (99) 92 06/02/20 21:51 24 Mechanical Ventilator 100 06/02/20 21:51 24 143/76 Mechanical Ventilator 100 06/02/20 21:30 70 24 149/75 (99) 93 06/02/20 21:00 60 19 131/53 (79) 95 06/02/20 20:51 19 Mechanical Ventilator 100 06/02/20 20:51 19 120/61 Mechanical Ventilator 100 06/02/20 20:36 19 Mechanical Ventilator 100 06/02/20 20:36 19 125/53 Mechanical Ventilator 100 06/02/20 20:30 59 19 126/60 (82) 95 06/02/20 20:00 61 06/02/20 20:00 98.0 62 19 125/53 (77) 95 06/02/20 20:00 Mechanical Ventilator 06/02/20 20:00 100 06/02/20 19:36 20 Mechanical Ventilator 100 06/02/20 19:36 20 128/55 Mechanical Ventilator 100 06/02/20 19:30 61 20 128/55 (79) 95 06/02/20 19:30 62 19 100 06/02/20 19:00 62 18 121/60 (80) 96 06/02/20 18:36 20 Mechanical Ventilator 100 06/02/20 18:36 20 125/52 Mechanical Ventilator 100 06/02/20 18:30 64 20 125/52 (76) 93 06/02/20 18:00 63 22 123/52 (75) 95 06/02/20 17:36 20 Mechanical Ventilator 100 06/02/20 17:36 20 123/57 Mechanical Ventilator 100 06/02/20 17:30 99.0 68 20 123/57 (79) 95 06/02/20 17:00 67 22 125/61 (82) 94 06/02/20 16:36 23 Mechanical Ventilator 100 06/02/20 16:36 23 118/55 Mechanical Ventilator 100 06/02/20 16:30 71 23 118/55 (76) 93 06/02/20 16:00 99.7 66 22 127/55 (79) 98 06/02/20 16:00 100 06/02/20 16:00 73 06/02/20 16:00 Mechanical Ventilator 06/02/20 15:55 70 20 100 06/02/20 15:36 21 Mechanical Ventilator 100 06/02/20 15:36 21 130/60 Mechanical Ventilator 100 06/02/20 15:30 75 22 129/59 (82) 92 06/02/20 15:06 100.0 06/02/20 15:00 76 22 126/63 (84) 93 06/02/20 14:36 26 Mechanical Ventilator 100 06/02/20 14:36 26 134/55 Mechanical Ventilator 100 06/02/20 14:36 26 Mechanical Ventilator 100 06/02/20 14:30 80 26 134/55 (81) 91 06/02/20 14:00 84 23 110/51 (70) 92 06/02/20 13:36 25 124/52 Mechanical Ventilator 100 06/02/20 13:36 25 Mechanical Ventilator 100 06/02/20 13:30 79 25 127/48 (74) 96 06/02/20 13:00 82 25 114/55 (74) 96 06/02/20 12:36 25 126/58 Mechanical Ventilator 100 06/02/20 12:36 25 Mechanical Ventilator 100 06/02/20 12:30 76 25 126/52 (76) 95 06/02/20 12:00 Mechanical Ventilator 06/02/20 12:00 76 06/02/20 12:00 100 06/02/20 12:00 100.0 78 25 123/53 (76) 95 06/02/20 11:36 28 115/52 Mechanical Ventilator 100 06/02/20 11:36 28 Mechanical Ventilator 100 Intake and Output 06/02/20 06/03/20 19:00 07:00 Intake Total 1548.867 ml 1555.05 ml Output Total 720 ml 600 ml Balance 828.867 ml 955.05 ml Free Water 50 ml 10 ml IV Total 918.867 ml 825.05 ml Tube Feeding 580 ml 720 ml Output Urine Total 720 ml 600 ml General Appearance: no acute distress HEENT: normocephalic Respiratory: chest wall non-tender Cardiovascular: normal peripheral pulses Abdomen: normal bowel sounds Laboratory Tests 06/03/20 05:37: White Blood Count 10.6, Red Blood Count 4.04L, Hemoglobin 11.8L, Hematocrit 37.8, Mean Corpuscular Volume 94, Mean Corpuscular Hemoglobin 29.2, Mean Corpuscular Hemoglobin Concent 31.2L, Red Cell Distribution Width 14.3, Platelet Count 121L, Mean Platelet Volume 7.3, Neutrophils (%) (Auto) , Lymphocytes (%) (Auto) , Monocytes (%) (Auto) , Eosinophils (%) (Auto) , Basophils (%) (Auto) , Differential Total Cells Counted 100, Neutrophils % (Manual) 85H, Lymphocytes % (Manual) 10L, Monocytes % (Manual) 4, Eosinophils % (Manual) 1, Basophils % (Manual) 0, Band Neutrophils 0, Platelet Estimate DecreasedL, Platelet Morphology Normal, Hypochromasia 1+, Sodium Level 143, Potassium Level 4.6, Chloride Level 109H, Carbon Dioxide Level 31, Anion Gap 3L, Blood Urea Nitrogen 28H, Creatinine 0.7, Estimat Glomerular Filtration Rate > 60, Glucose Level 255H , Calcium Level 8.8 06/03/20 08:46: Arterial Blood pH 7.311L, Arterial Blood Partial Pressure CO2 59.2*H, Arterial Blood Partial Pressure O2 56.3L, Arterial Blood HCO3 29.2H, Arterial Blood Oxygen Saturation 86.7*L, Arterial Blood Base Excess 1.6, Jeremiah Test Positive Current Medications Medications (Trade) Dose Ordered Sig/Zelda Route PRN Reason Start Time Stop Time Status Last Admin Dose Admin Acetaminophen (Tylenol) 650 mg Q4H PRN NG Temp >100.5 05/31/20 21:45 06/30/20 21:44 06/02/20 14:36 Ceftriaxone Sodium 1 gm/ Sodium Chloride 55 ml @ 110 mls/hr DAILY IVPB 05/29/20 09:00 06/05/20 08:59 06/03/20 09:47 Chlorhexidine Gluconate (Inna-Hex 2%) 1 applic DAILY@2000 TOPIC 05/30/20 20:00 08/28/20 19:59 06/02/20 19:59 Dexamethasone Sodium Phosphate (Decadron 10mg/ ml Inj) 6 mg DAILY IV 05/29/20 09:00 06/06/20 09:01 06/03/20 09:47 Dextrose/Sodium Chloride 1,000 ml @ 50 mls/hr Q20H IV 05/30/20 00:30 06/29/20 00:29 06/02/20 23:43 Enoxaparin Sodium (Lovenox) 40 mg DAILY SUBQ 05/30/20 10:00 08/28/20 09:59 06/03/20 09:48 Fentanyl Citrate 250 ml @ 0 mls/hr Q24H IV 06/03/20 07:15 06/05/20 07:15 Lorazepam (Ativan 2mg/ml 1ml) 1 mg Q4H PRN IV For Anxiety 05/30/20 20:50 06/06/20 20:49 06/01/20 08:15 Midazolam HCl 100 mg/Sodium Chloride 200 ml @ 0 mls/hr Q24H PRN IV Restlessness 06/02/20 00:00 06/04/20 00:00 06/03/20 07:07 Morphine Sulfate (Morphine Sulfate) 2 mg Q2H PRN IVP For Pain 05/29/20 12:45 06/05/20 12:44 05/31/20 05:31 Pantoprazole (Protonix) 40 mg DAILY IVP 06/03/20 09:00 07/03/20 08:59 06/03/20 09:47 Assessment/Plan Assessment/Plan 1. COVID-19 pneumonia -Intubated 05/28/20 - We will continue broad-spectrum antibiotics. - We will continue dexamethasone -Defer use of remdesivir to ID -Continue monitoring SaO2 and keep it >92% -Continue PEEP 14; increased to 16; FiO2 100% - -will begin OGT feeding - May need pressors -Continue sedation -Need to keep patient completely sedated. 2. Hyponatremia -Per primary MD 3. Elevated inflammatory markers -Continue Javier Gonzalez MD Jun 03, 2020 11:35
[2020-06-03] MEDS: fentaNYL 2500mcg/NS 250ml 250 ML IV SCH (12:24)
--- NOTE | 2020-06-03 12:29 | Infectious Diseases Prog Note ---
Assessment/Plan Assessment/Plan antibiotics : ceftriaxone A 1. covid 19 pneumonia on 100 % Fi O2 with 95 % saturation s/p remdesivir 2. respiratory failure P 1. d/c dexamethasone 2. start solumedrol 3. continue isolation Subjective ROS Limited/Unobtainable: Yes Allergies: Coded Allergies: No Known Allergies (Unverified , 05/28/20) Objective Last 24 Hour Vital Signs Date Time Temp Pulse Resp B/P (MAP) Pulse Ox O2 Delivery O2 Flow Rate FiO2 06/03/20 12:24 27 143/68 Mechanical Ventilator 100 06/03/20 11:00 84 29 142/78 (99) 88 06/03/20 10:30 87 28 163/74 (103) 93 06/03/20 10:00 84 31 155/67 (96) 85 06/03/20 09:30 80 29 142/73 (96) 84 06/03/20 09:00 78 28 138/70 (92) 80 06/03/20 08:30 79 29 140/71 (94) 72 06/03/20 08:00 100 06/03/20 08:00 Mechanical Ventilator 06/03/20 08:00 99.8 70 28 123/73 (90) 92 06/03/20 08:00 76 06/03/20 07:30 77 28 135/67 (89) 91 06/03/20 07:07 27 Mechanical Ventilator 100 06/03/20 07:00 99.2 77 27 133/67 (89) 93 06/03/20 06:51 27 Mechanical Ventilator 100 06/03/20 06:51 27 138/69 Mechanical Ventilator 100 06/03/20 06:30 70 27 06/03/20 06:30 70 28 123/73 (90) 92 06/03/20 06:00 74 29 129/69 (89) 94 06/03/20 05:51 29 Mechanical Ventilator 100 06/03/20 05:51 29 131/69 Mechanical Ventilator 100 06/03/20 05:30 75 30 130/64 (86) 92 06/03/20 05:00 73 29 133/69 (90) 93 06/03/20 04:51 29 Mechanical Ventilator 100 06/03/20 04:51 29 128/62 Mechanical Ventilator 100 06/03/20 04:30 76 29 127/69 (88) 95 06/03/20 04:00 100 06/03/20 04:00 99.9 74 29 133/65 (87) 95 06/03/20 04:00 Mechanical Ventilator 06/03/20 04:00 78 06/03/20 03:51 29 Mechanical Ventilator 100 06/03/20 03:51 29 132/64 Mechanical Ventilator 100 06/03/20 03:30 94 20 143/73 (96) 94 06/03/20 03:26 78 30 100 06/03/20 03:00 77 28 142/68 (92) 97 06/03/20 02:51 24 Mechanical Ventilator 100 06/03/20 02:51 24 127/77 Mechanical Ventilator 100 06/03/20 02:30 77 27 127/77 (94) 96 06/03/20 02:00 74 24 140/73 (95) 95 06/03/20 01:51 25 Mechanical Ventilator 100 06/03/20 01:51 25 137/72 Mechanical Ventilator 100 06/03/20 01:30 71 25 136/73 (94) 96 06/03/20 01:00 68 25 140/66 (90) 96 06/03/20 00:51 25 Mechanical Ventilator 100 06/03/20 00:51 25 137/72 Mechanical Ventilator 100 06/03/20 00:30 68 23 137/70 (92) 95 06/03/20 00:00 68 06/03/20 00:00 100 06/03/20 00:00 Mechanical Ventilator 06/03/20 00:00 98.2 67 23 136/74 (94) 96 06/02/20 23:51 23 Mechanical Ventilator 100 06/02/20 23:51 23 139/72 Mechanical Ventilator 100 06/02/20 23:30 65 23 131/71 (91) 95 06/02/20 23:14 69 23 100 06/02/20 23:00 68 23 144/72 (96) 94 06/02/20 22:51 24 Mechanical Ventilator 100 06/02/20 22:51 24 143/76 Mechanical Ventilator 100 06/02/20 22:30 68 24 141/70 (93) 94 06/02/20 22:00 69 22 146/76 (99) 92 06/02/20 21:51 24 Mechanical Ventilator 100 06/02/20 21:51 24 143/76 Mechanical Ventilator 100 06/02/20 21:30 70 24 149/75 (99) 93 06/02/20 21:00 60 19 131/53 (79) 95 06/02/20 20:51 19 Mechanical Ventilator 100 06/02/20 20:51 19 120/61 Mechanical Ventilator 100 06/02/20 20:36 19 Mechanical Ventilator 100 06/02/20 20:36 19 125/53 Mechanical Ventilator 100 06/02/20 20:30 59 19 126/60 (82) 95 06/02/20 20:00 61 06/02/20 20:00 98.0 62 19 125/53 (77) 95 06/02/20 20:00 Mechanical Ventilator 06/02/20 20:00 100 06/02/20 19:36 20 Mechanical Ventilator 100 06/02/20 19:36 20 128/55 Mechanical Ventilator 100 06/02/20 19:30 61 20 128/55 (79) 95 06/02/20 19:30 62 19 100 06/02/20 19:00 62 18 121/60 (80) 96 06/02/20 18:36 20 Mechanical Ventilator 100 06/02/20 18:36 20 125/52 Mechanical Ventilator 100 06/02/20 18:30 64 20 125/52 (76) 93 06/02/20 18:00 63 22 123/52 (75) 95 06/02/20 17:36 20 Mechanical Ventilator 100 06/02/20 17:36 20 123/57 Mechanical Ventilator 100 06/02/20 17:30 99.0 68 20 123/57 (79) 95 06/02/20 17:00 67 22 125/61 (82) 94 06/02/20 16:36 23 Mechanical Ventilator 100 06/02/20 16:36 23 118/55 Mechanical Ventilator 100 06/02/20 16:30 71 23 118/55 (76) 93 06/02/20 16:00 99.7 66 22 127/55 (79) 98 06/02/20 16:00 100 06/02/20 16:00 73 06/02/20 16:00 Mechanical Ventilator 06/02/20 15:55 70 20 100 06/02/20 15:36 21 Mechanical Ventilator 100 06/02/20 15:36 21 130/60 Mechanical Ventilator 100 06/02/20 15:30 75 22 129/59 (82) 92 06/02/20 15:06 100.0 06/02/20 15:00 76 22 126/63 (84) 93 06/02/20 14:36 26 Mechanical Ventilator 100 06/02/20 14:36 26 134/55 Mechanical Ventilator 100 06/02/20 14:36 26 Mechanical Ventilator 100 06/02/20 14:30 80 26 134/55 (81) 91 06/02/20 14:00 84 23 110/51 (70) 92 06/02/20 13:36 25 124/52 Mechanical Ventilator 100 06/02/20 13:36 25 Mechanical Ventilator 100 06/02/20 13:30 79 25 127/48 (74) 96 06/02/20 13:00 82 25 114/55 (74) 96 06/02/20 12:36 25 126/58 Mechanical Ventilator 100 06/02/20 12:36 25 Mechanical Ventilator 100 06/02/20 12:30 76 25 126/52 (76) 95 Height (Feet): 5 Height (Inches): 5.00 Weight (Pounds): 308 HEENT: other - intubated Laboratory Tests Test 06/03/20 05:37 06/03/20 08:46 White Blood Count 10.6 K/UL (4.8-10.8) Red Blood Count 4.04 M/UL (4.20-5.40) L Hemoglobin 11.8 G/DL (12.0-16.0) L Hematocrit 37.8 % (37.0-47.0) Mean Corpuscular Volume 94 FL (80-99) Mean Corpuscular Hemoglobin 29.2 PG (27.0-31.0) Mean Corpuscular Hemoglobin Concent 31.2 G/DL (32.0-36.0) L Red Cell Distribution Width 14.3 % (11.6-14.8) Platelet Count 121 K/UL (150-450) L Mean Platelet Volume 7.3 FL (6.5-10.1) Neutrophils (%) (Auto) % (45.0-75.0) Lymphocytes (%) (Auto) % (20.0-45.0) Monocytes (%) (Auto) % (1.0-10.0) Eosinophils (%) (Auto) % (0.0-3.0) Basophils (%) (Auto) % (0.0-2.0) Differential Total Cells Counted 100 Neutrophils % (Manual) 85 % (45-75) H Lymphocytes % (Manual) 10 % (20-45) L Monocytes % (Manual) 4 % (1-10) Eosinophils % (Manual) 1 % (0-3) Basophils % (Manual) 0 % (0-2) Band Neutrophils 0 % (0-8) Platelet Estimate Decreased L Platelet Morphology Normal Hypochromasia 1+ Sodium Level 143 MMOL/L (136-145) Potassium Level 4.6 MMOL/L (3.5-5.1) Chloride Level 109 MMOL/L (98-107) H Carbon Dioxide Level 31 MMOL/L (21-32) Anion Gap 3 mmol/L (5-15) L Blood Urea Nitrogen 28 mg/dL (7-18) H Creatinine 0.7 MG/DL (0.55-1.30) Estimat Glomerular Filtration Rate > 60 mL/min (>60) Glucose Level 255 MG/DL (74-106) H Calcium Level 8.8 MG/DL (8.5-10.1) Arterial Blood pH 7.311 (7.350-7.450) Arterial Blood Partial Pressure CO2 59.2 mmHg (35.0-45.0) *H Arterial Blood Partial Pressure O2 56.3 mmHg (75.0-100.0) L Arterial Blood HCO3 29.2 mmol/L (22.0-26.0) H Arterial Blood Oxygen Saturation 86.7 % (95-100) *L Arterial Blood Base Excess 1.6 (-2-2) Jeremiah Test Positive Current Medications Medications (Trade) Dose Ordered Sig/Zelda Route PRN Reason Start Time Stop Time Status Last Admin Dose Admin Acetaminophen (Tylenol) 650 mg Q4H PRN NG Temp >100.5 05/31/20 21:45 06/30/20 21:44 06/02/20 14:36 Ceftriaxone Sodium 1 gm/ Sodium Chloride 55 ml @ 110 mls/hr DAILY IVPB 05/29/20 09:00 06/05/20 08:59 06/03/20 09:47 Chlorhexidine Gluconate (Inna-Hex 2%) 1 applic DAILY@1999 TOPIC 05/30/20 20:00 08/28/20 19:59 06/02/20 19:59 Dexamethasone Sodium Phosphate (Decadron 10mg/ ml Inj) 6 mg DAILY IV 05/29/20 09:00 06/06/20 09:01 06/03/20 09:47 Dextrose/Sodium Chloride 1,000 ml @ 50 mls/hr Q20H IV 05/30/20 00:30 06/29/20 00:29 06/02/20 23:43 Enoxaparin Sodium (Lovenox) 40 mg DAILY SUBQ 05/30/20 10:00 08/28/20 09:59 06/03/20 09:48 Fentanyl Citrate 250 ml @ 0 mls/hr Q24H IV 06/03/20 07:15 06/05/20 07:15 06/03/20 12:24 Lorazepam (Ativan 2mg/ml 1ml) 1 mg Q4H PRN IV For Anxiety 05/30/20 20:50 06/06/20 20:49 06/01/20 08:15 Midazolam HCl 100 mg/Sodium Chloride 200 ml @ 0 mls/hr Q24H PRN IV Restlessness 06/02/20 00:00 06/04/20 00:00 06/03/20 07:07 Morphine Sulfate (Morphine Sulfate) 2 mg Q2H PRN IVP For Pain 05/29/20 12:45 06/05/20 12:44 05/31/20 05:31 Pantoprazole (Protonix) 40 mg DAILY IVP 06/03/20 09:00 07/03/20 08:59 06/03/20 09:47 Fili Mcelroy MD Jun 03, 2020 12:28
--- NOTE | 2020-06-03 13:37 | NUR ---
Aquaculture DirectorCivil Defense Director SI: COVID PNA, ETT/Vent support T-99.6 (ax), HR 82, RR 30, BP 139/69, AC 15, TV 500, PEEP 16, FiO2 100%, O2 sat 100% WBC 10.6, BUN 28 Chest X ray Bilateral opacities consistent with infiltrates IS: Versed GTT Fentanyl GTT Solu-Medorl IV q 24h Rocephin IV q 24h Azithromycin IV q 24h Lovenox SQ QD Protonix IVP QD ICU status
[2020-06-03] MEDS: Solu-MEDROL 40mg Inj IVP SCH ×2 (13:41→21:00)
--- NOTE | 2020-06-03 14:00 | NUR ---
NURSE NOTES: Tube feeding bottle changed with a new bottle of vital AF 1.2 and resumed rate at 60ml/hr, OG-tube feeding flushed with no resistance and air flush swoosh is heard over the upper left quadrant. patient remains on versed drip at 6 mg/hr and fentanyl at 90mcg/hr to maintain RASS scale of -2,
--- NOTE | 2020-06-03 16:05 | NUR ---
NURSE NOTES: Temperature is 98.7 with the cooling blanket applied under the patient, the previous temperatures have remained at 99.4-99.8, tube feeding remains at60ml/hr with vital A.F. 1.2. versed remains running at 6mg/hr and fentanyl at 90mcg/hr for rass scale of -2. ]
--- NOTE | 2020-06-03 19:34 | NUR ---
NURSE HAND-OFF REPORT: Latest Vital Signs: Temperature 98.7 , Pulse 88 , B/P 137 /71 , Respiratory Rate 29 , O2 SAT 96 , Mechanical Ventilator, O2 Flow Rate . Vital Sign Comment: EKG Rhythm: Sinus Rhythm Rhythm change?: N MD Notified?: - MD Response: Latest Meyers Fall Score: 50 Fall Risk: High Risk Safety Measures: Call light Within Reach, Bed Alarm Zone 1, Side Rails Side Rails x2, Bed position Low and Locked. Fall Precautions: Yellow Socks Yellow Gown Door Sign Patient Fall Education Report given to RAKEL Kevin.
[2020-06-03] MEDS: Dyna-Hex 2% Top Sol 2oz TOPIC SCH (20:00)
--- NOTE | 2020-06-03 20:00 | NUR ---
NURSE NOTES: Received report from RAKEL Mejía. Pt is resting on the bed and sedated RASS -2 Pt has ETT and orally intubated. Vent dependent and setting with AC: 15, T:500, P14 and FiO2 100% and SaO2 93-94% noted. Given suction and oral care. Pt has OGT on running with Vital AF @ 60cc/hr and No residual noted. Pt has Lennon cath and dark jordyn color urine urinated well. Iv site intact and no sign of infiltration noted. Pt has PICC line on Rt. upper arm PICC line. Dressing is clean and dry. on running with Fentanyl drip @ 100mcg/hr, Versed @ 6mg/hr and D5NS @ 50cc/hr and noted RASS score -2. No wound noted. Noted BT: 98.8F by Rectal. On cooling blanket. Pt has bilateral soft restraint and checked comfort and circulation. Placed fall precaution. On proper airborne isolation for COVID-19. Will continue to care plan.
[2020-06-03] MEDS: D5NS 1,000 ML IV SCH (22:00)
--- NOTE | 2020-06-03 22:00 | NUR ---
NURSE NOTES: All due meds given. Patient remains sedated RASS -2. Patient repositioned lavaged, oral care performed, and suctioned. Afebrile at this time, NAD. Remains stable at this time.
[2020-06-03] MEDS: Morphine Sulfate 2mg/ml Inj(IV/IM USE ONLY) IVP PRN (22:19)
[2020-06-03] MEDS: LORazepam Inj 2mg/ml 1ml IV PRN (22:19)
[2020-06-04] VITALS (49 sets, daily range): BP systolic 120–170; BP diastolic 58–121
--- NOTE | 2020-06-04 | NUR ---
NURSE NOTES: Vitals remains stable, afebrile, repositioned, suctioned oral care done, making good urine output. Will continue to monitor. No current changes at this time.
--- NOTE | 2020-06-04 02:00 | NUR ---
NURSE NOTES: SaO2 95% with current Vent setting. Turn and reposition. Tolerated well with OGT feeding. Placed fall precaution. Will continue to care plan.
--- NOTE | 2020-06-04 04:00 | NUR ---
NURSE NOTES: Morning care was done. cleaned Pt and applied lotion and cream. SaO2 95% with current Vent setting. Checked BT : 99.4F.. Tolerated well with OGT feeding. Given oral care and mouth care. Turn and reposition. Placed fall precaution. no acute events. Will continue to care plan.
[2020-06-04] MEDS: Versed 50mg/NS 100ml 100 ML IV PRN ×3 (04:39→22:01)
--- NOTE | 2020-06-04 06:00 | NUR ---
NURSE NOTES: FiO2 dropped earlier to 60% Fio2 by Rt. Patient seems to be tolerating well at this time. SpO2 96%
[2020-06-04 06:36] LABS: HEMATOCRIT 37.1 % (37.0-47.0); HEMOGLOBIN 11.7 G/DL (12.0-16.0); MEAN CORPUSCULAR VOLUME 94 FL (80-99); PLATELET COUNT 90 K/UL (150-450); RED BLOOD COUNT 3.94 M/UL (4.20-5.40); RED CELL DISTRIBUTION WIDTH 14.5 % (11.6-14.8); WHITE BLOOD COUNT 9.6 K/UL (4.8-10.8)
[2020-06-04 06:39] LABS: ANION GAP 3 mmol/L (5-15); BLOOD UREA NITROGEN 28 mg/dL (7-18); CALCIUM 7.9 MG/DL (8.5-10.1); CARBON DIOXIDE 32 MMOL/L (21-32); CHLORIDE 106 MMOL/L (98-107); CREATININE 0.7 MG/DL (0.55-1.30); POTASSIUM 4.9 MMOL/L (3.5-5.1); SODIUM 141 MMOL/L (136-145)
--- NOTE | 2020-06-04 08:55 | NUR ---
NURSE NOTES: Dr. Arana updated on the patient ABC count of 10.6 and temperature of 100.0 while on cooling blanket, no verbal orders given at this time.
[2020-06-04] MEDS: fentaNYL 2500mcg/NS 250ml 250 ML IV SCH (09:15)
[2020-06-04] MEDS: Enoxaparin 40mg Inj SUBQ SCH (09:16)
[2020-06-04] MEDS: Pantoprazole Inj IVP SCH (09:16)
[2020-06-04] MEDS: Solu-MEDROL 40mg Inj IVP SCH ×2 (09:16→20:41)
[2020-06-04] MEDS: cefTRIAXone 1 GM in NS 55 ML IVPB SCH (09:17)
--- NOTE | 2020-06-04 09:53 | Infectious Diseases Prog Note ---
Assessment/Plan Assessment/Plan A 1. COVID19 pneumonia 2. Hypoxic respiratory failure 3. Morbid obesity P 1. Finished remdesivir course 2. continue Solumedrol 3. continue Rocephin 4. continue isolation Subjective ROS Limited/Unobtainable: Yes Neurologic: Reports: other - sedated Allergies: Coded Allergies: No Known Allergies (Unverified , 05/28/20) Objective Last 24 Hour Vital Signs Date Time Temp Pulse Resp B/P (MAP) Pulse Ox O2 Delivery O2 Flow Rate FiO2 06/04/20 09:15 30 148/70 Mechanical Ventilator 60 06/04/20 08:30 109 30 131/65 (87) 93 06/04/20 08:00 Mechanical Ventilator 06/04/20 08:00 100.0 105 30 146/65 (92) 92 06/04/20 08:00 60 06/04/20 07:30 111 29 146/66 (92) 92 06/04/20 07:00 111 29 127/70 (89) 92 06/04/20 07:00 26 127/70 Mechanical Ventilator 60 06/04/20 06:39 26 Mechanical Ventilator 60 06/04/20 06:30 103 26 06/04/20 06:30 102 26 144/71 (95) 95 06/04/20 06:00 104 26 128/65 (86) 100 06/04/20 06:00 26 144/71 Mechanical Ventilator 60 06/04/20 05:39 26 Mechanical Ventilator 60 06/04/20 05:30 103 26 126/72 (90) 100 06/04/20 05:00 26 135/68 Mechanical Ventilator 60 06/04/20 05:00 100.6 106 26 140/65 (90) 96 06/04/20 04:39 26 Mechanical Ventilator 100 06/04/20 04:30 101 26 148/68 (94) 94 06/04/20 04:15 103 26 137/76 (96) 93 06/04/20 04:00 26 137/76 Mechanical Ventilator 100 06/04/20 04:00 100 06/04/20 04:00 99.5 97 26 129/72 (91) 94 06/04/20 04:00 103 06/04/20 04:00 Mechanical Ventilator 06/04/20 03:30 86 26 129/76 (93) 100 06/04/20 03:00 100 26 156/79 (104) 98 06/04/20 03:00 26 125/69 Mechanical Ventilator 100 06/04/20 02:56 99 23 100 06/04/20 02:30 87 26 136/69 (91) 95 06/04/20 02:00 87 26 132/73 (92) 94 06/04/20 02:00 26 145/71 Mechanical Ventilator 100 06/04/20 02:00 26 Mechanical Ventilator 100 06/04/20 01:30 90 26 151/79 (103) 93 06/04/20 01:00 90 26 136/81 (99) 94 06/04/20 01:00 26 145/71 Mechanical Ventilator 100 06/04/20 01:00 26 Mechanical Ventilator 100 06/04/20 00:30 83 27 140/76 (97) 94 06/04/20 00:00 26 138/78 Mechanical Ventilator 100 06/04/20 00:00 26 Mechanical Ventilator 100 06/04/20 00:00 87 06/04/20 00:00 100 06/04/20 00:00 99.3 83 27 136/72 (93) 93 06/04/20 00:00 Mechanical Ventilator 06/03/20 23:05 84 27 100 06/03/20 23:00 26 137/75 Mechanical Ventilator 100 06/03/20 23:00 26 Mechanical Ventilator 100 06/03/20 23:00 83 27 139/78 (98) 94 06/03/20 22:49 84 26 139/74 93 06/03/20 22:30 84 26 150/75 (100) 94 06/03/20 22:19 96 39 135/65 94 06/03/20 22:00 80 29 134/68 (90) 94 06/03/20 22:00 26 135/65 Mechanical Ventilator 100 06/03/20 22:00 26 Mechanical Ventilator 100 06/03/20 21:30 79 27 130/70 (90) 95 06/03/20 21:00 79 26 138/69 (92) 97 06/03/20 21:00 26 134/73 Mechanical Ventilator 100 06/03/20 21:00 26 Mechanical Ventilator 100 06/03/20 20:30 81 26 143/62 (89) 96 06/03/20 20:00 100 06/03/20 20:00 26 130/75 Mechanical Ventilator 100 06/03/20 20:00 26 Mechanical Ventilator 100 06/03/20 20:00 98.1 84 29 130/75 (93) 94 06/03/20 20:00 99 06/03/20 20:00 Mechanical Ventilator 06/03/20 19:30 85 28 150/73 (98) 95 06/03/20 19:20 84 27 100 06/03/20 19:00 29 137/71 Mechanical Ventilator 100 06/03/20 19:00 29 Mechanical Ventilator 100 06/03/20 19:00 88 29 141/73 (95) 96 06/03/20 18:30 87 29 149/55 (86) 94 06/03/20 18:00 85 28 146/68 (94) 94 06/03/20 18:00 29 146/68 Mechanical Ventilator 100 06/03/20 18:00 29 Mechanical Ventilator 100 06/03/20 17:30 89 28 148/65 (92) 95 06/03/20 17:00 27 137/70 Mechanical Ventilator 100 06/03/20 17:00 27 Mechanical Ventilator 100 06/03/20 17:00 83 30 137/70 (92) 95 06/03/20 16:30 82 29 140/69 (92) 96 06/03/20 16:00 98.7 82 30 139/74 (95) 95 06/03/20 16:00 Mechanical Ventilator 06/03/20 16:00 30 139/74 Mechanical Ventilator 100 06/03/20 16:00 30 Mechanical Ventilator 100 06/03/20 16:00 80 06/03/20 16:00 100 06/03/20 15:30 80 30 141/73 (95) 95 06/03/20 15:15 88 26 100 06/03/20 15:00 30 136/76 Mechanical Ventilator 100 06/03/20 15:00 30 Mechanical Ventilator 100 06/03/20 15:00 81 30 136/76 (96) 96 06/03/20 14:30 81 31 134/60 (84) 96 06/03/20 14:00 31 137/71 Mechanical Ventilator 100 06/03/20 14:00 31 Mechanical Ventilator 100 06/03/20 14:00 84 31 137/71 (93) 96 06/03/20 13:30 83 31 136/78 (97) 96 06/03/20 13:00 82 30 139/69 (92) 96 06/03/20 13:00 31 139/69 Mechanical Ventilator 100 06/03/20 13:00 20 Mechanical Ventilator 100 06/03/20 12:30 84 30 143/80 (101) 95 06/03/20 12:24 27 143/68 Mechanical Ventilator 100 06/03/20 12:00 83 06/03/20 12:00 Mechanical Ventilator 06/03/20 12:00 30 Mechanical Ventilator 100 06/03/20 12:00 99.6 81 29 150/66 (94) 95 06/03/20 12:00 100 06/03/20 11:30 84 30 147/74 (98) 94 06/03/20 11:15 86 29 100 06/03/20 11:00 28 Mechanical Ventilator 100 06/03/20 11:00 28 142/78 Mechanical Ventilator 100 06/03/20 11:00 84 29 142/78 (99) 88 06/03/20 10:30 87 28 163/74 (103) 93 06/03/20 10:00 30 Mechanical Ventilator 100 06/03/20 10:00 30 155/67 Mechanical Ventilator 100 06/03/20 10:00 84 31 155/67 (96) 85 Height (Feet): 5 Height (Inches): 5.00 Weight (Pounds): 308 HEENT: other - orally intubated Respiratory/Chest: other - on ventilator, FIO2=60% Cardiovascular: tachycardia, other - PICC line Abdomen: soft, non tender, other - OG tube Neurologic/Psychiatric: unresponsiveness, other - sedated Laboratory Tests Test 06/04/20 04:00 White Blood Count 9.6 K/UL (4.8-10.8) Red Blood Count 3.94 M/UL (4.20-5.40) L Hemoglobin 11.7 G/DL (12.0-16.0) L Hematocrit 37.1 % (37.0-47.0) Mean Corpuscular Volume 94 FL (80-99) Mean Corpuscular Hemoglobin 29.8 PG (27.0-31.0) Mean Corpuscular Hemoglobin Concent 31.7 G/DL (32.0-36.0) L Red Cell Distribution Width 14.5 % (11.6-14.8) Platelet Count 90 K/UL (150-450) L Mean Platelet Volume 8.3 FL (6.5-10.1) Neutrophils (%) (Auto) % (45.0-75.0) Lymphocytes (%) (Auto) % (20.0-45.0) Monocytes (%) (Auto) % (1.0-10.0) Eosinophils (%) (Auto) % (0.0-3.0) Basophils (%) (Auto) % (0.0-2.0) Neutrophils % (Manual) Pending Lymphocytes % (Manual) Pending Platelet Estimate Pending Platelet Morphology Pending Sodium Level 141 MMOL/L (136-145) Potassium Level 4.9 MMOL/L (3.5-5.1) Chloride Level 106 MMOL/L (98-107) Carbon Dioxide Level 32 MMOL/L (21-32) Anion Gap 3 mmol/L (5-15) L Blood Urea Nitrogen 28 mg/dL (7-18) H Creatinine 0.7 MG/DL (0.55-1.30) Estimat Glomerular Filtration Rate > 60 mL/min (>60) Glucose Level 325 MG/DL (74-106) H Calcium Level 7.9 MG/DL (8.5-10.1) L Current Medications Medications (Trade) Dose Ordered Sig/Zelda Route PRN Reason Start Time Stop Time Status Last Admin Dose Admin Acetaminophen (Tylenol) 650 mg Q4H PRN NG Temp >100.5 05/31/20 21:45 06/30/20 21:44 06/02/20 14:36 Ceftriaxone Sodium 1 gm/ Sodium Chloride 55 ml @ 110 mls/hr DAILY IVPB 05/29/20 09:00 06/05/20 08:59 06/04/20 09:17 Chlorhexidine Gluconate (Inna-Hex 2%) 1 applic DAILY@2000 TOPIC 05/30/20 20:00 08/28/20 19:59 06/03/20 20:00 Dextrose/Sodium Chloride 1,000 ml @ 50 mls/hr Q20H IV 05/30/20 00:30 06/29/20 00:29 06/03/20 22:00 Enoxaparin Sodium (Lovenox) 40 mg DAILY SUBQ 05/30/20 10:00 08/28/20 09:59 06/04/20 09:16 Fentanyl Citrate 250 ml @ 0 mls/hr Q24H IV 06/03/20 07:15 06/05/20 07:15 06/04/20 09:15 Lorazepam (Ativan 2mg/ml 1ml) 1 mg Q4H PRN IV For Anxiety 05/30/20 20:50 06/06/20 20:49 06/03/20 22:19 Methylprednisolone Sodium Succinate (Solu-MEDROL) 40 mg EVERY 12 HOURS IVP 06/03/20 12:30 09/01/20 12:29 06/04/20 09:16 Midazolam HCl 100 ml @ 0 mls/hr Q24H PRN IV To Patient Comfort 06/04/20 04:30 06/06/20 04:29 06/04/20 04:39 Morphine Sulfate (Morphine Sulfate) 2 mg Q2H PRN IVP For Pain 05/29/20 12:45 06/05/20 12:44 06/03/20 22:19 Pantoprazole (Protonix) 40 mg DAILY IVP 06/03/20 09:00 07/03/20 08:59 06/04/20 09:16 Colt Arana MD Jun 04, 2020 09:53
--- NOTE | 2020-06-04 09:55 | NUR ---
NURSE NOTES: Fentanyl wasted and verified by RAKEL Bernal.
--- NOTE | 2020-06-04 11:00 | NUR ---
NURSE NOTES: Dr. Nava rounded at the bedside and informed to the patient ABG results and ventilator setting of AC 15, TV: 500, Fio2 of 60 % and peep of 16. order obtained from Dr. Nava to change the peep to 12, Respiratory therapist at the bedside and changed setting to AC 15, TV: 500, Fio2 of 60% and peep of 12. saturations is noted at 92-95% with RR of 23-26. heart rate is noted to be at 103-110 bmp in sinus tachycardia.
--- NOTE | 2020-06-04 12:10 | General Progress Note ---
Subjective Constitutional: Reports: weakness Allergies: Coded Allergies: No Known Allergies (Unverified , 05/28/20) All Systems: reviewed and negative except above Subjective intubated sedatde in icu Objective Last 24 Hour Vital Signs Date Time Temp Pulse Resp B/P (MAP) Pulse Ox O2 Delivery O2 Flow Rate FiO2 06/04/20 11:00 110 30 140/72 (94) 95 06/04/20 10:30 105 30 132/69 (90) 99 06/04/20 10:00 106 27 136/75 (95) 97 06/04/20 09:30 113 30 144/62 (89) 92 06/04/20 09:15 30 148/70 Mechanical Ventilator 60 06/04/20 09:00 110 31 148/70 (96) 92 06/04/20 08:30 109 30 131/65 (87) 93 06/04/20 08:00 Mechanical Ventilator 06/04/20 08:00 100.0 105 30 146/65 (92) 92 06/04/20 08:00 60 06/04/20 07:30 111 29 146/66 (92) 92 06/04/20 07:00 111 29 127/70 (89) 92 06/04/20 07:00 26 127/70 Mechanical Ventilator 60 06/04/20 06:39 26 Mechanical Ventilator 60 06/04/20 06:30 103 26 06/04/20 06:30 102 26 144/71 (95) 95 06/04/20 06:00 104 26 128/65 (86) 100 06/04/20 06:00 26 144/71 Mechanical Ventilator 60 06/04/20 05:39 26 Mechanical Ventilator 60 06/04/20 05:30 103 26 126/72 (90) 100 06/04/20 05:00 26 135/68 Mechanical Ventilator 60 06/04/20 05:00 100.6 106 26 140/65 (90) 96 06/04/20 04:39 26 Mechanical Ventilator 100 06/04/20 04:30 101 26 148/68 (94) 94 06/04/20 04:15 103 26 137/76 (96) 93 06/04/20 04:00 26 137/76 Mechanical Ventilator 100 06/04/20 04:00 100 06/04/20 04:00 99.5 97 26 129/72 (91) 94 06/04/20 04:00 103 06/04/20 04:00 Mechanical Ventilator 06/04/20 03:30 86 26 129/76 (93) 100 06/04/20 03:00 100 26 156/79 (104) 98 06/04/20 03:00 26 125/69 Mechanical Ventilator 100 06/04/20 02:56 99 23 100 06/04/20 02:30 87 26 136/69 (91) 95 06/04/20 02:00 87 26 132/73 (92) 94 06/04/20 02:00 26 145/71 Mechanical Ventilator 100 06/04/20 02:00 26 Mechanical Ventilator 100 06/04/20 01:30 90 26 151/79 (103) 93 06/04/20 01:00 90 26 136/81 (99) 94 06/04/20 01:00 26 145/71 Mechanical Ventilator 100 06/04/20 01:00 26 Mechanical Ventilator 100 06/04/20 00:30 83 27 140/76 (97) 94 06/04/20 00:00 26 138/78 Mechanical Ventilator 100 06/04/20 00:00 26 Mechanical Ventilator 100 06/04/20 00:00 87 06/04/20 00:00 100 06/04/20 00:00 99.3 83 27 136/72 (93) 93 06/04/20 00:00 Mechanical Ventilator 06/03/20 23:05 84 27 100 06/03/20 23:00 26 137/75 Mechanical Ventilator 100 06/03/20 23:00 26 Mechanical Ventilator 100 06/03/20 23:00 83 27 139/78 (98) 94 06/03/20 22:49 84 26 139/74 93 06/03/20 22:30 84 26 150/75 (100) 94 06/03/20 22:19 96 39 135/65 94 06/03/20 22:00 80 29 134/68 (90) 94 06/03/20 22:00 26 135/65 Mechanical Ventilator 100 06/03/20 22:00 26 Mechanical Ventilator 100 06/03/20 21:30 79 27 130/70 (90) 95 06/03/20 21:00 79 26 138/69 (92) 97 06/03/20 21:00 26 134/73 Mechanical Ventilator 100 06/03/20 21:00 26 Mechanical Ventilator 100 06/03/20 20:30 81 26 143/62 (89) 96 06/03/20 20:00 100 06/03/20 20:00 26 130/75 Mechanical Ventilator 100 06/03/20 20:00 26 Mechanical Ventilator 100 06/03/20 20:00 98.1 84 29 130/75 (93) 94 06/03/20 20:00 99 06/03/20 20:00 Mechanical Ventilator 06/03/20 19:30 85 28 150/73 (98) 95 06/03/20 19:20 84 27 100 06/03/20 19:00 29 137/71 Mechanical Ventilator 100 06/03/20 19:00 29 Mechanical Ventilator 100 06/03/20 19:00 88 29 141/73 (95) 96 06/03/20 18:30 87 29 149/55 (86) 94 06/03/20 18:00 85 28 146/68 (94) 94 06/03/20 18:00 29 146/68 Mechanical Ventilator 100 06/03/20 18:00 29 Mechanical Ventilator 100 06/03/20 17:30 89 28 148/65 (92) 95 06/03/20 17:00 27 137/70 Mechanical Ventilator 100 06/03/20 17:00 27 Mechanical Ventilator 100 06/03/20 17:00 83 30 137/70 (92) 95 06/03/20 16:30 82 29 140/69 (92) 96 06/03/20 16:00 98.7 82 30 139/74 (95) 95 06/03/20 16:00 Mechanical Ventilator 06/03/20 16:00 30 139/74 Mechanical Ventilator 100 06/03/20 16:00 30 Mechanical Ventilator 100 06/03/20 16:00 80 06/03/20 16:00 100 06/03/20 15:30 80 30 141/73 (95) 95 06/03/20 15:15 88 26 100 06/03/20 15:00 30 136/76 Mechanical Ventilator 100 06/03/20 15:00 30 Mechanical Ventilator 100 06/03/20 15:00 81 30 136/76 (96) 96 06/03/20 14:30 81 31 134/60 (84) 96 06/03/20 14:00 31 137/71 Mechanical Ventilator 100 06/03/20 14:00 31 Mechanical Ventilator 100 06/03/20 14:00 84 31 137/71 (93) 96 06/03/20 13:30 83 31 136/78 (97) 96 06/03/20 13:00 82 30 139/69 (92) 96 06/03/20 13:00 31 139/69 Mechanical Ventilator 100 06/03/20 13:00 20 Mechanical Ventilator 100 06/03/20 12:30 84 30 143/80 (101) 95 06/03/20 12:24 27 143/68 Mechanical Ventilator 100 Intake and Output 06/03/20 06/04/20 19:00 07:00 Intake Total 1743.0 ml 1616.2 ml Output Total 950 ml 765 ml Balance 793.0 ml 851.2 ml Free Water 100 ml 200 ml IV Total 893.0 ml 696.2 ml Tube Feeding 720 ml 720 ml Other 30 ml Output Urine Total 950 ml 765 ml Laboratory Tests 06/04/20 04:00: White Blood Count 9.6, Red Blood Count 3.94L, Hemoglobin 11.7L, Hematocrit 37.1, Mean Corpuscular Volume 94, Mean Corpuscular Hemoglobin 29.8, Mean Corpuscular Hemoglobin Concent 31.7L, Red Cell Distribution Width 14.5, Platelet Count 90L, Mean Platelet Volume 8.3, Neutrophils (%) (Auto) , Lymphocytes (%) (Auto) , Monocytes (%) (Auto) , Eosinophils (%) (Auto) , Basophils (%) (Auto) , Differential Total Cells Counted 100, Neutrophils % (Manual) 92H, Lymphocytes % (Manual) 5L, Monocytes % (Manual) 3, Eosinophils % (Manual) 0, Basophils % (Manual) 0, Band Neutrophils 0, Platelet Estimate DecreasedL, Platelet Morphology Normal, Anisocytosis 1+, Sodium Level 141, Potassium Level 4.9, Chloride Level 106, Carbon Dioxide Level 32, Anion Gap 3L, Blood Urea Nitrogen 28H, Creatinine 0.7, Estimat Glomerular Filtration Rate > 60, Glucose Level 325H , Calcium Level 7.9L Height (Feet): 5 Height (Inches): 5.00 Weight (Pounds): 308 General Appearance: lethargic EENT: normal ENT inspection Neck: normal alignment Cardiovascular: normal peripheral pulses, normal rate, regular rhythm Respiratory/Chest: chest wall non-tender, lungs clear, normal breath sounds Abdomen: normal bowel sounds, non tender, soft Extremities: normal inspection Edema: no edema noted Arm (L), no edema noted Arm (R), no edema noted Leg (L), no edema noted Leg (R), no edema noted Pedal (L), no edema noted Pedal (R), no edema noted Generalized Neurologic: motor weakness Skin: normal pigmentation, warm/dry Assessment/Plan Problem List: (1) Hypoxia ICD Codes: R09.02 - Hypoxemia SNOMED: 211202944 (2) Respiratory failure ICD Codes: J96.90 - Respiratory failure, unspecified, unspecified whether with hypoxia or hypercapnia SNOMED: 984840666 (3) Respiratory distress ICD Codes: R06.03 - Acute respiratory distress; J12.82 - Pneumonia due to coronavirus disease 2019 SNOMED: 471374224 (4) Pneumonia due to COVID-19 virus ICD Codes: U07.1 - COVID-19; J12.82 - Pneumonia due to coronavirus disease 2019 SNOMED: 935286578442406451 Status: unchanged Assessment/Plan: vent abx id pulm f/u cbc bmp am Tank Del Cid DO Jun 04, 2020 12:10
--- NOTE | 2020-06-04 12:15 | NUR ---
NURSE NOTES: Patient remains sedated on versed at 6mg/hr and fentanyl at 90mcg/hr. blood pressure remains at 133/71 with heart rate of 101 is sinus tachycardia and saturations of 97%, current ventilator setting are at AC15, TV: 500, FIO2 of 60% and peep of 12. Addendum: 06/04/20 at 1657 by Alfonzo Miramontes RN fio2 50%
--- NOTE | 2020-06-04 12:34 | Pulmonology Progress Note ---
Subjective ROS Limited/Unobtainable: Yes Interval Events: Remains intubated Constitutional: Reports: fever HEENT: Repors: no symptoms Respiratory: Reports: no symptoms Cardiovascular: Reports: no symptoms Gastrointestinal/Abdominal: Reports: no symptoms Genitourinary: Reports: no symptoms Allergies: Coded Allergies: No Known Allergies (Unverified , 05/28/20) All Systems: reviewed and negative except above Objective Last 24 Hour Vital Signs Date Time Temp Pulse Resp B/P (MAP) Pulse Ox O2 Delivery O2 Flow Rate FiO2 06/04/20 11:00 110 30 140/72 (94) 95 06/04/20 10:30 105 30 132/69 (90) 99 06/04/20 10:00 106 27 136/75 (95) 97 06/04/20 09:30 113 30 144/62 (89) 92 06/04/20 09:15 30 148/70 Mechanical Ventilator 60 06/04/20 09:00 110 31 148/70 (96) 92 06/04/20 08:30 109 30 131/65 (87) 93 06/04/20 08:00 Mechanical Ventilator 06/04/20 08:00 100.0 105 30 146/65 (92) 92 06/04/20 08:00 60 06/04/20 07:30 111 29 146/66 (92) 92 06/04/20 07:00 111 29 127/70 (89) 92 06/04/20 07:00 26 127/70 Mechanical Ventilator 60 06/04/20 06:39 26 Mechanical Ventilator 60 06/04/20 06:30 103 26 06/04/20 06:30 102 26 144/71 (95) 95 06/04/20 06:00 104 26 128/65 (86) 100 06/04/20 06:00 26 144/71 Mechanical Ventilator 60 06/04/20 05:39 26 Mechanical Ventilator 60 06/04/20 05:30 103 26 126/72 (90) 100 06/04/20 05:00 26 135/68 Mechanical Ventilator 60 06/04/20 05:00 100.6 106 26 140/65 (90) 96 06/04/20 04:39 26 Mechanical Ventilator 100 06/04/20 04:30 101 26 148/68 (94) 94 06/04/20 04:15 103 26 137/76 (96) 93 06/04/20 04:00 26 137/76 Mechanical Ventilator 100 06/04/20 04:00 100 06/04/20 04:00 99.5 97 26 129/72 (91) 94 06/04/20 04:00 103 06/04/20 04:00 Mechanical Ventilator 06/04/20 03:30 86 26 129/76 (93) 100 06/04/20 03:00 100 26 156/79 (104) 98 06/04/20 03:00 26 125/69 Mechanical Ventilator 100 06/04/20 02:56 99 23 100 06/04/20 02:30 87 26 136/69 (91) 95 06/04/20 02:00 87 26 132/73 (92) 94 06/04/20 02:00 26 145/71 Mechanical Ventilator 100 06/04/20 02:00 26 Mechanical Ventilator 100 06/04/20 01:30 90 26 151/79 (103) 93 06/04/20 01:00 90 26 136/81 (99) 94 06/04/20 01:00 26 145/71 Mechanical Ventilator 100 06/04/20 01:00 26 Mechanical Ventilator 100 06/04/20 00:30 83 27 140/76 (97) 94 06/04/20 00:00 26 138/78 Mechanical Ventilator 100 06/04/20 00:00 26 Mechanical Ventilator 100 06/04/20 00:00 87 06/04/20 00:00 100 06/04/20 00:00 99.3 83 27 136/72 (93) 93 06/04/20 00:00 Mechanical Ventilator 06/03/20 23:05 84 27 100 06/03/20 23:00 26 137/75 Mechanical Ventilator 100 06/03/20 23:00 26 Mechanical Ventilator 100 06/03/20 23:00 83 27 139/78 (98) 94 06/03/20 22:49 84 26 139/74 93 06/03/20 22:30 84 26 150/75 (100) 94 06/03/20 22:19 96 39 135/65 94 06/03/20 22:00 80 29 134/68 (90) 94 06/03/20 22:00 26 135/65 Mechanical Ventilator 100 06/03/20 22:00 26 Mechanical Ventilator 100 06/03/20 21:30 79 27 130/70 (90) 95 06/03/20 21:00 79 26 138/69 (92) 97 06/03/20 21:00 26 134/73 Mechanical Ventilator 100 06/03/20 21:00 26 Mechanical Ventilator 100 06/03/20 20:30 81 26 143/62 (89) 96 06/03/20 20:00 100 06/03/20 20:00 26 130/75 Mechanical Ventilator 100 06/03/20 20:00 26 Mechanical Ventilator 100 06/03/20 20:00 98.1 84 29 130/75 (93) 94 06/03/20 20:00 99 06/03/20 20:00 Mechanical Ventilator 06/03/20 19:30 85 28 150/73 (98) 95 06/03/20 19:20 84 27 100 06/03/20 19:00 29 137/71 Mechanical Ventilator 100 06/03/20 19:00 29 Mechanical Ventilator 100 06/03/20 19:00 88 29 141/73 (95) 96 06/03/20 18:30 87 29 149/55 (86) 94 06/03/20 18:00 85 28 146/68 (94) 94 06/03/20 18:00 29 146/68 Mechanical Ventilator 100 06/03/20 18:00 29 Mechanical Ventilator 100 06/03/20 17:30 89 28 148/65 (92) 95 06/03/20 17:00 27 137/70 Mechanical Ventilator 100 06/03/20 17:00 27 Mechanical Ventilator 100 06/03/20 17:00 83 30 137/70 (92) 95 06/03/20 16:30 82 29 140/69 (92) 96 06/03/20 16:00 98.7 82 30 139/74 (95) 95 06/03/20 16:00 Mechanical Ventilator 06/03/20 16:00 30 139/74 Mechanical Ventilator 100 06/03/20 16:00 30 Mechanical Ventilator 100 06/03/20 16:00 80 06/03/20 16:00 100 06/03/20 15:30 80 30 141/73 (95) 95 06/03/20 15:15 88 26 100 06/03/20 15:00 30 136/76 Mechanical Ventilator 100 06/03/20 15:00 30 Mechanical Ventilator 100 06/03/20 15:00 81 30 136/76 (96) 96 06/03/20 14:30 81 31 134/60 (84) 96 06/03/20 14:00 31 137/71 Mechanical Ventilator 100 06/03/20 14:00 31 Mechanical Ventilator 100 06/03/20 14:00 84 31 137/71 (93) 96 06/03/20 13:30 83 31 136/78 (97) 96 06/03/20 13:00 82 30 139/69 (92) 96 06/03/20 13:00 31 139/69 Mechanical Ventilator 100 06/03/20 13:00 20 Mechanical Ventilator 100 Intake and Output 06/03/20 06/04/20 19:00 07:00 Intake Total 1743.0 ml 1616.2 ml Output Total 950 ml 765 ml Balance 793.0 ml 851.2 ml Free Water 100 ml 200 ml IV Total 893.0 ml 696.2 ml Tube Feeding 720 ml 720 ml Other 30 ml Output Urine Total 950 ml 765 ml General Appearance: no acute distress HEENT: normocephalic Respiratory: chest wall non-tender Cardiovascular: normal peripheral pulses Abdomen: normal bowel sounds Laboratory Tests 06/04/20 04:00: White Blood Count 9.6, Red Blood Count 3.94L, Hemoglobin 11.7L, Hematocrit 37.1, Mean Corpuscular Volume 94, Mean Corpuscular Hemoglobin 29.8, Mean Corpuscular Hemoglobin Concent 31.7L, Red Cell Distribution Width 14.5, Platelet Count 90L, Mean Platelet Volume 8.3, Neutrophils (%) (Auto) , Lymphocytes (%) (Auto) , Monocytes (%) (Auto) , Eosinophils (%) (Auto) , Basophils (%) (Auto) , Differential Total Cells Counted 100, Neutrophils % (Manual) 92H, Lymphocytes % (Manual) 5L, Monocytes % (Manual) 3, Eosinophils % (Manual) 0, Basophils % (Manual) 0, Band Neutrophils 0, Platelet Estimate DecreasedL, Platelet Morphology Normal, Anisocytosis 1+, Sodium Level 141, Potassium Level 4.9, Chloride Level 106, Carbon Dioxide Level 32, Anion Gap 3L, Blood Urea Nitrogen 28H, Creatinine 0.7, Estimat Glomerular Filtration Rate > 60, Glucose Level 325H , Calcium Level 7.9L Current Medications Medications (Trade) Dose Ordered Sig/Zelda Route PRN Reason Start Time Stop Time Status Last Admin Dose Admin Acetaminophen (Tylenol) 650 mg Q4H PRN NG Temp >100.5 05/31/20 21:45 06/30/20 21:44 06/02/20 14:36 Ceftriaxone Sodium 1 gm/ Sodium Chloride 55 ml @ 110 mls/hr DAILY IVPB 05/29/20 09:00 06/11/20 23:59 06/04/20 09:17 Chlorhexidine Gluconate (Inna-Hex 2%) 1 applic DAILY@2000 TOPIC 05/30/20 20:00 08/28/20 19:59 06/03/20 20:00 Dextrose/Sodium Chloride 1,000 ml @ 50 mls/hr Q20H IV 05/30/20 00:30 06/29/20 00:29 06/03/20 22:00 Enoxaparin Sodium (Lovenox) 40 mg DAILY SUBQ 05/30/20 10:00 08/28/20 09:59 06/04/20 09:16 Fentanyl Citrate 250 ml @ 0 mls/hr Q24H IV 06/03/20 07:15 06/05/20 07:15 06/04/20 09:15 Lorazepam (Ativan 2mg/ml 1ml) 1 mg Q4H PRN IV For Anxiety 05/30/20 20:50 06/06/20 20:49 06/03/20 22:19 Methylprednisolone Sodium Succinate (Solu-MEDROL) 40 mg EVERY 12 HOURS IVP 06/03/20 12:30 09/01/20 12:29 06/04/20 09:16 Midazolam HCl 100 ml @ 0 mls/hr Q24H PRN IV To Patient Comfort 06/04/20 04:30 06/06/20 04:29 06/04/20 04:39 Morphine Sulfate (Morphine Sulfate) 2 mg Q2H PRN IVP For Pain 05/29/20 12:45 06/05/20 12:44 06/03/20 22:19 Pantoprazole (Protonix) 40 mg DAILY IVP 06/03/20 09:00 07/03/20 08:59 06/04/20 09:16 Assessment/Plan Assessment/Plan 1. COVID-19 pneumonia -Intubated 05/28/20 - We will continue broad-spectrum antibiotics. - We will continue dexamethasone -Defer use of remdesivir to ID -Continue monitoring SaO2 and keep it >92% -Continue PEEP 16; decreased today to 10; FiO2 60% - -will begin OGT feeding - May need pressors -Continue sedation -Need to keep patient completely sedated. 2. Hyponatremia -Per primary MD 3. Elevated inflammatory markers -Continue Javier Gonzalez MD Jun 04, 2020 12:34
--- NOTE | 2020-06-04 13:40 | NUR ---
NURSE NOTES: Respiratory Therapist at the bedside assessing the patient status, fio2 titrated to 50% from 60% with the heart rate remaining at 92 in sinus rhythm and saturations of 98%. patient is noted to be tolerating setting change.
[2020-06-04] MEDS: D5NS 1,000 ML IV SCH (13:52)
--- NOTE | 2020-06-04 14:45 | NUR ---
NURSE NOTES: on fio2 of 50% the saturations are noted to be 98% with respiratory rate of 25-26 and hear rate of 85-86 in sinus rhythm,
--- NOTE | 2020-06-04 16:04 | NUR ---
Lead Level DesignerWeigher And Crusher SI: COVID PNA, ETT/Vent support T-99.6 (ax), HR 82, RR 30, BP 139/69, AC 15, TV 500, PEEP 16, FiO2 60%, O2 sat 100% WBC 9.6, BUN 28 Chest X ray Bilateral opacities consistent with infiltrates IS: Versed GTT Fentanyl GTT Solu-Medorl IV q 24h Rocephin IV q 24h Lovenox SQ QD Protonix IVP QD ICU status
--- NOTE | 2020-06-04 16:38 | NUR ---
NURSE NOTES: saturations noted to be at 80-83% while on setting of AC 15, TV: 500, FIO2 50% with peep of 12, Respiratory therapist informed of the desaturation and entered to suction, saturations increased to 93% after interventions, shortly after the saturations continued to decrease to 80-81%. Dr. Nava notified of the patient desaturating episode while on peep of 12 and Fio2 of 50%. order obtained from Dr. Nava to change ventilator setting to AC 15, TV: 500, Fio2: 100%, peep of 16. saturations are now noted to have increased to 98-99% with heart rate of 84 and respirations of 24-25.
[2020-06-04] MEDS ORDERED: D5NS 1000ml IV ONE (17:41)
[2020-06-04] MEDS ORDERED: Tubing IV Secondary IV ONE (17:41)
[2020-06-04] MEDS ORDERED: NS 275ml ONE (17:41)
--- NOTE | 2020-06-04 19:30 | NUR ---
NURSE NOTES: Received report from Alfonzo ELLINGTON. patient in bed sedated. orally intubated ETT 7.5/23cm AC 15, TV 500 Fi02 100% peep of 16 satting 95%. cooling measure provided. HR SR on site monitor HR 79. HOB elevated. OGT infusing vital AF 1.2 at 60cc/hr. Right upper arm PICC line intact infusing Fentanyl drip at 90mcg/hr, Versed 6mg/hr, D5 Ns at 50cc/hr. bilateral wrist restraint checked to prevent patient from pulling out tubing. Cooling measure provided, Temp 98.axillary. No s/s of hypo/hyperglycemia. Covid +. Airborne precaution maintained and observed, will continue plan of care.
--- NOTE | 2020-06-04 19:38 | NUR ---
NURSE HAND-OFF REPORT: Latest Vital Signs: Temperature 98.0 , Pulse 80 , B/P 143 /74 , Respiratory Rate 30 , O2 SAT 96 , Mechanical Ventilator, O2 Flow Rate . Vital Sign Comment: EKG Rhythm: Sinus Rhythm Rhythm change?: N MD Notified?: - MD Response: Latest Meyers Fall Score: 50 Fall Risk: High Risk Safety Measures: Call light Within Reach, Bed Alarm Zone 1, Side Rails Side Rails x2, Bed position Low and Locked. Fall Precautions: Yellow Socks Yellow Gown Door Sign Patient Fall Education Report given to RAKEL Beckett.
[2020-06-04] MEDS: Dyna-Hex 2% Top Sol 2oz TOPIC SCH (20:41)
--- NOTE | 2020-06-04 21:30 | NUR ---
NURSE NOTES: patient in bed sedated. no s/s of acute distress noted. orally intubated ETT 7.5/23cm AC 15, TV 500 Fi02 100% peep of 16 satting 95%. cooling measure provided. HR SR on quality assurance monitor chassis HR 82. HOB elevated. OGT infusing vital AF 1.2 at 60cc/hr. Right upper arm PICC line intact infusing Fentanyl drip at 90mcg/hr, Versed 6mg/hr, D5 Ns at 50cc/hr will continue plan of care.
--- NOTE | 2020-06-04 23:30 | NUR ---
NURSE NOTES: patient in bed sedated. no s/s of acute distress noted. orally intubated ETT 7.5/23cm AC 15, TV 500 Fi02 100% peep of 16 satting 95%. HR SR on media coordinator HR 80. HOB elevated. OGT infusing vital AF 1.2 at 60cc/hr. Right upper arm PICC line intact infusing Fentanyl drip at 90mcg/hr, Versed 6mg/hr, D5 Ns at 50cc/hr will continue plan of care.
[2020-06-05] VITALS (28 sets, daily range): BP systolic 116–152; BP diastolic 74–93
--- NOTE | 2020-06-05 01:30 | NUR ---
NURSE NOTES: patient in bed sedated. no s/s of acute distress noted. orally intubated ETT 7.5/23cm AC 15, TV 500 Fi02 100% peep of 16 satting 95-100%. HR SR on diagnostic cardiac sonographer HR 78. HOB elevated. OGT infusing vital AF 1.2 at 60cc/hr. Right upper arm PICC line intact infusing Fentanyl drip at 90mcg/hr, Versed 6mg/hr, D5 Ns at 50cc/hr. Turned and repositioned patient in bed. oral care and suctioned patient. will continue plan of care.
--- NOTE | 2020-06-05 04:00 | NUR ---
NURSE NOTES: Bed bath given tolerated well. repositioned patient in bed. HOB elevated. f. no s/s of hypo/hyperglycemia. no fever. no diarrhea. no n/v. no s/s of acute distress noted. orally intubated ETT 7.5/23cm AC 15, TV 500 Fi02 100% peep of 16 satting 89-95%. HR SR on scrap metal collector HR 78. HOB elevated. OGT infusing vital AF 1.2 at 60cc/hr. Right upper arm PICC line intact infusing Fentanyl drip at 90mcg/hr, Versed 6mg/hr RASS score -2, D5 Ns at 50cc/hr. Turned and repositioned patient in bed. oral care and suctioned patient. Airborne precaution maintained and observed. will continue plan of care.
[2020-06-05 05:36] LABS: HEMATOCRIT 41.5 % (37.0-47.0); HEMOGLOBIN 13.5 G/DL (12.0-16.0); MEAN CORPUSCULAR VOLUME 90 FL (80-99); PLATELET COUNT 95 K/UL (150-450); RED BLOOD COUNT 4.61 M/UL (4.20-5.40); RED CELL DISTRIBUTION WIDTH 14.1 % (11.6-14.8); WHITE BLOOD COUNT 10.6 K/UL (4.8-10.8)
--- NOTE | 2020-06-05 05:47 | NUR ---
NURSE NOTES: patient in bed sedated. no s/s of acute distress noted. orally intubated ETT 7.5/23cm AC 15, TV 500 Fi02 100% peep of 16 satting 90%. HR SR on cafeteria monitor HR 91. HOB elevated. OGT infusing vital AF 1.2 at 60cc/hr. Right upper arm PICC line intact infusing Fentanyl drip at 90mcg/hr, Versed 6mg/hr RASS score -2, D5 Ns at 50cc/hr. Turned and repositioned patient in bed. oral care and suctioned patient. Airborne precaution maintained and observed. will continue plan of care.
[2020-06-05] MEDS: Versed 50mg/NS 100ml 100 ML IV PRN ×4 (05:59→22:35)
[2020-06-05 06:18] LABS: ANION GAP 4 mmol/L (5-15); BLOOD UREA NITROGEN 30 mg/dL (7-18); CALCIUM 9.3 MG/DL (8.5-10.1); CARBON DIOXIDE 32 MMOL/L (21-32); CHLORIDE 104 MMOL/L (98-107); CREATININE 0.7 MG/DL (0.55-1.30); POTASSIUM 5.1 MMOL/L (3.5-5.1); SODIUM 140 MMOL/L (136-145)
[2020-06-05] MEDS: fentaNYL 2500mcg/NS 250ml 250 ML IV SCH ×2 (07:15→12:54)
--- NOTE | 2020-06-05 07:19 | NUR ---
HAND-OFF: Report given to Levy ELLINGTON.
--- NOTE | 2020-06-05 07:30 | NUR ---
NURSE NOTES:Handoff received from RAKEL Beckett. Patient received in bed, sedated with no acute signs of distress. Patient is intubated with ETT tube 7.5 with 23cm from the lipline connected to vent with settings AC15,TV500, FI02 100% and PEEP 16 with o2 saturation of 94%. Patient is on rn cardiac rehab with HR of 97 SR. Patient also has OGT running Glucerna Vital A.F 1.2@60ML/HR. Patient is placed on fall, isolation and aspiration precautions with HOB elevated to 30', bed in the low and locked position and bed alarm on. Patient has LINDA PICC line clean dry and intact, running Fentanyl drip at 90MCG/HR and versed 6MG per hour with RASS score-2. Patient also has D5NS running at 50ML/HR. will follow plan of care.
[2020-06-05] MEDS: Enoxaparin 40mg Inj SUBQ SCH (09:00)
--- NOTE | 2020-06-05 09:20 | General Progress Note ---
Subjective Constitutional: Reports: weakness Allergies: Coded Allergies: No Known Allergies (Unverified , 05/28/20) All Systems: reviewed and negative except above Subjective intubated sedatde in icu Objective Last 24 Hour Vital Signs Date Time Temp Pulse Resp B/P (MAP) Pulse Ox O2 Delivery O2 Flow Rate FiO2 06/05/20 08:23 97 06/05/20 08:00 Mechanical Ventilator 06/05/20 08:00 96 25 148/90 (109) 92 06/05/20 08:00 100 06/05/20 07:45 99 25 100 06/05/20 07:00 25 Mechanical Ventilator 100 06/05/20 07:00 25 140/79 Mechanical Ventilator 100 06/05/20 07:00 82 25 140/79 (99) 94 06/05/20 06:30 85 26 06/05/20 06:29 97.8 06/05/20 06:00 84 26 144/90 (108) 91 06/05/20 06:00 25 Mechanical Ventilator 100 06/05/20 06:00 25 140/90 Mechanical Ventilator 100 06/05/20 05:59 26 Mechanical Ventilator 26.0 100 06/05/20 05:58 25 Mechanical Ventilator 100 06/05/20 05:00 101 26 143/92 (109) 90 06/05/20 05:00 25 Mechanical Ventilator 100 06/05/20 05:00 25 143/92 Mechanical Ventilator 100 06/05/20 04:00 85 06/05/20 04:00 25 Mechanical Ventilator 100 06/05/20 04:00 25 120/80 Mechanical Ventilator 100 06/05/20 04:00 97.8 80 21 133/85 (101) 98 06/05/20 04:00 Mechanical Ventilator 06/05/20 04:00 100 06/05/20 03:39 89 16 146/92 (110) 98 06/05/20 03:00 80 24 137/90 (106) 98 06/05/20 03:00 24 Mechanical Ventilator 100 06/05/20 03:00 24 149/62 Mechanical Ventilator 100 06/05/20 02:31 96 17 100 06/05/20 02:30 78 22 141/88 (105) 98 06/05/20 02:00 20 Mechanical Ventilator 100 06/05/20 02:00 20 141/87 Mechanical Ventilator 100 06/05/20 02:00 77 24 141/87 (105) 93 06/05/20 01:00 77 23 138/78 (98) 96 06/05/20 01:00 23 Mechanical Ventilator 100 06/05/20 01:00 23 138/78 Mechanical Ventilator 100 06/05/20 00:30 82 26 138/74 (95) 93 06/05/20 00:00 80 06/05/20 00:00 26 Mechanical Ventilator 100 06/05/20 00:00 100 06/05/20 00:00 Mechanical Ventilator 06/05/20 00:00 97.9 80 25 149/87 (107) 96 06/04/20 23:30 80 25 149/87 (107) 96 06/04/20 23:04 82 23 100 06/04/20 23:00 100 20 139/121 (127) 98 06/04/20 23:00 25 Mechanical Ventilator 100 06/04/20 23:00 25 149/87 Mechanical Ventilator 100 06/04/20 22:31 98.0 06/04/20 22:30 82 22 152/83 (106) 96 06/04/20 22:01 26 Mechanical Ventilator 26.0 100 06/04/20 22:00 81 25 141/80 (100) 95 06/04/20 22:00 25 Mechanical Ventilator 100 06/04/20 22:00 23 162/82 Mechanical Ventilator 100 06/04/20 21:00 82 25 147/76 (99) 97 06/04/20 21:00 26 Mechanical Ventilator 100 06/04/20 21:00 26 147/76 Mechanical Ventilator 100 06/04/20 20:43 Mechanical Ventilator 06/04/20 20:30 75 26 130/71 (90) 95 06/04/20 20:15 75 26 131/69 (89) 95 06/04/20 20:00 100 06/04/20 20:00 79 06/04/20 20:00 25 Mechanical Ventilator 100 06/04/20 20:00 25 130/62 Mechanical Ventilator 100 06/04/20 20:00 98.0 76 26 130/62 (84) 95 06/04/20 19:30 80 30 143/74 (97) 96 06/04/20 19:22 82 23 100 06/04/20 19:00 23 Mechanical Ventilator 100 06/04/20 19:00 23 120/64 Mechanical Ventilator 100 06/04/20 19:00 74 23 120/64 (82) 98 06/04/20 18:30 77 25 124/66 (85) 98 06/04/20 18:00 80 24 124/62 (82) 99 06/04/20 18:00 24 Mechanical Ventilator 100 06/04/20 18:00 24 124/62 Mechanical Ventilator 100 06/04/20 17:30 99 22 135/75 (95) 97 06/04/20 17:00 25 Mechanical Ventilator 100 06/04/20 17:00 25 130/71 Mechanical Ventilator 100 06/04/20 17:00 83 25 130/71 (90) 98 06/04/20 16:31 100 06/04/20 16:30 97 27 148/77 (100) 79 06/04/20 16:00 50 06/04/20 16:00 Mechanical Ventilator 06/04/20 16:00 27 Mechanical Ventilator 50 06/04/20 16:00 27 170/81 Mechanical Ventilator 50 06/04/20 16:00 98.0 109 21 170/81 (110) 80 06/04/20 16:00 81 06/04/20 15:30 83 22 124/66 (85) 96 06/04/20 15:00 82 29 121/58 (79) 98 06/04/20 15:00 24 Mechanical Ventilator 50 06/04/20 15:00 24 170/81 Non-Rebreather 50 06/04/20 14:30 85 28 120/62 (81) 97 06/04/20 14:00 24 Mechanical Ventilator 50 06/04/20 14:00 24 127/65 Mechanical Ventilator 50 06/04/20 14:00 92 25 127/65 (85) 98 06/04/20 13:51 26 Mechanical Ventilator 50 06/04/20 13:30 91 25 123/67 (85) 100 06/04/20 13:20 93 24 100 06/04/20 13:00 25 131/65 Mechanical Ventilator 60 06/04/20 13:00 97 30 131/65 (87) 99 06/04/20 12:30 98 28 127/69 (88) 98 06/04/20 12:00 99.6 106 27 136/68 (90) 94 06/04/20 12:00 24 136/68 Mechanical Ventilator 60 06/04/20 12:00 60 06/04/20 12:00 Mechanical Ventilator 1/12/21 12:00 108 06/04/20 11:30 115 25 152/74 (100) 89 06/04/20 11:00 110 30 140/72 (94) 95 06/04/20 11:00 26 140/72 Mechanical Ventilator 60 06/04/20 10:30 105 30 132/69 (90) 99 06/04/20 10:00 28 136/75 Mechanical Ventilator 60 06/04/20 10:00 106 27 136/75 (95) 97 06/04/20 09:30 113 30 144/62 (89) 92 Intake and Output 06/04/20 06/05/20 19:00 07:00 Intake Total 1616.25491 ml 1872.2 ml Output Total 1750 ml 1380 ml Balance -133.70685 ml 492.2 ml Free Water 300 ml IV Total 896.31461 ml 852.2 ml Tube Feeding 720 ml 720 ml Output Urine Total 1750 ml 1380 ml Laboratory Tests 06/04/20 17:23: Arterial Blood pH 7.368, Arterial Blood Partial Pressure CO2 57.6*H, Arterial Blood Partial Pressure O2 66.6L, Arterial Blood HCO3 32.4H, Arterial Blood Oxygen Saturation 92.2L, Arterial Blood Base Excess 5.5H, Jeremiah Test Positive 06/05/20 04:30: White Blood Count 10.6, Red Blood Count 4.61, Hemoglobin 13.5, Hematocrit 41.5, Mean Corpuscular Volume 90, Mean Corpuscular Hemoglobin 29.2, Mean Corpuscular Hemoglobin Concent 32.4, Red Cell Distribution Width 14.1, Platelet Count 95L, Mean Platelet Volume 9.9, Neutrophils (%) (Auto) , Lymphocytes (%) (Auto) , Monocytes (%) (Auto) , Eosinophils (%) (Auto) , Basophils (%) (Auto) , Neutrophils % (Manual) [Pending], Lymphocytes % (Manual) [Pending], Platelet Estimate [Pending], Platelet Morphology [Pending], Sodium Level 140, Potassium Level 5.1, Chloride Level 104, Carbon Dioxide Level 32, Anion Gap 4L, Blood Urea Nitrogen 30H, Creatinine 0.7, Estimat Glomerular Filtration Rate > 60, Glucose Level 361H, Calcium Level 9.3 06/05/20 08:40: Arterial Blood pH 7.372, Arterial Blood Partial Pressure CO2 54.5H, Arterial Blood Partial Pressure O2 57.2L, Arterial Blood HCO3 30.9H, Arterial Blood Oxygen Saturation 86.2*L, Arterial Blood Base Excess 4.4H, Jeremiah Test Positive Height (Feet): 5 Height (Inches): 5.00 Weight (Pounds): 308 General Appearance: lethargic EENT: normal ENT inspection Neck: normal alignment Cardiovascular: normal peripheral pulses, normal rate, regular rhythm Respiratory/Chest: chest wall non-tender, lungs clear, normal breath sounds Abdomen: normal bowel sounds, non tender, soft Extremities: normal inspection Edema: no edema noted Arm (L), no edema noted Arm (R), no edema noted Leg (L), no edema noted Leg (R), no edema noted Pedal (L), no edema noted Pedal (R), no edema noted Generalized Neurologic: motor weakness Skin: normal pigmentation, warm/dry Assessment/Plan Problem List: (1) Hypoxia ICD Codes: R09.02 - Hypoxemia SNOMED: 733651998 (2) Respiratory failure ICD Codes: J96.90 - Respiratory failure, unspecified, unspecified whether with hypoxia or hypercapnia SNOMED: 642012579 (3) Respiratory distress ICD Codes: R06.03 - Acute respiratory distress; J12.82 - Pneumonia due to coronavirus disease 2019 SNOMED: 633183827 (4) Pneumonia due to COVID-19 virus ICD Codes: U07.1 - COVID-19; J12.82 - Pneumonia due to coronavirus disease 2019 SNOMED: 055948392870103316 Status: unchanged Assessment/Plan: vent abx id pulm f/u cbc bmp am Tank Del Cid DO Jun 05, 2020 09:20
--- NOTE | 2020-06-05 09:21 | NUR ---
RD ASSESSMENT & RECOMMENDATIONS SEE CARE ACTIVITY FOR COMPLETE ASSESSMENT DAILY ESTIMATED NEEDS: Needs based on Critical care, obesity 11-14kcal/kg actual body wt (140kg) kcals/kg 3241-2629 total kcals 1.5-2.0g prot/kg IBW (64.5kg) g protein/kg 96-129 g total protein 25-30ml/kg abw (83kg) mL/kg 5013-5700 total fluid mLs NUTRITION DIAGNOSIS: Swallowing difficulty R/T respiratory failure as evidenced by pt orally intubated and sedated, NPO at this time. CURRENT TF: Vital 1.2 goal of 60ml/hr ENTERAL NUTRITION RECOMMENDATIONS: Vital AF 1.2 @ 60ml/hr x 24 hrs (WITHOUT PROPOFOL RUNNING) to provide 1440ml, 1728kcal, 108g prot, 1168ml free water * As medically appropriate, obtain GI access, initiate critical care and carb controlled TF formula of Vital AF 1.2. * Initiate TF @ 20ml/hr x 6hrs, advance 10ml q 4-6 hrs as tolerated to goal * TF @ goal meeds 100% est kcal/prot needs * HOB over 30 degrees/ water flush per MD W/ PROPOFOL RUNNING @ CURRENT RATE OF 29.4ML/HR (PROVIDES ADDITIONAL 776 LIPID KCAL) -> rec Vital AF @ goal rate of 35ml/hr x 24 hrs to provide 840ml, 1008kcal from TF ADDITIONAL RECOMMENDATIONS: * Calibrated bedscale wt * Monitor Propofol rate, need for TF adjustment-> now off -> Trend triglyceride: 208 on 05/30 * NISS w/ TF: h/o DM, on solumedrol + D5-> BG elevated * Monitor lytes, replete as needed * Rec bowel regimen
[2020-06-05] MEDS: Solu-MEDROL 40mg Inj IVP SCH ×2 (09:50→20:01)
[2020-06-05] MEDS: Pantoprazole Inj IVP SCH (09:50)
[2020-06-05] MEDS: cefTRIAXone 1 GM in NS 55 ML IVPB SCH (09:51)
--- NOTE | 2020-06-05 11:03 | Infectious Diseases Prog Note ---
Assessment/Plan Assessment/Plan antibiotics : ceftriaxone A 1. covid 19 pneumonia on 100 % Fi O2 with 90 % saturation s/p remdesivir 2. respiratory failure P 1. continue ceftriaxone 2. continue solumedrol 3. continue isolation Subjective ROS Limited/Unobtainable: Yes Allergies: Coded Allergies: No Known Allergies (Unverified , 05/28/20) Objective Last 24 Hour Vital Signs Date Time Temp Pulse Resp B/P (MAP) Pulse Ox O2 Delivery O2 Flow Rate FiO2 06/05/20 10:54 111 29 139/82 (101) 90 06/05/20 10:00 98.5 107 28 145/81 (102) 91 06/05/20 09:00 96.8 103 25 138/87 (104) 97 06/05/20 08:23 97 06/05/20 08:00 Mechanical Ventilator 06/05/20 08:00 96 25 148/90 (109) 92 06/05/20 08:00 100 06/05/20 07:45 99 25 100 06/05/20 07:00 25 Mechanical Ventilator 100 06/05/20 07:00 25 140/79 Mechanical Ventilator 100 06/05/20 07:00 82 25 140/79 (99) 94 06/05/20 06:30 85 26 06/05/20 06:29 97.8 06/05/20 06:00 84 26 144/90 (108) 91 06/05/20 06:00 25 Mechanical Ventilator 100 06/05/20 06:00 25 140/90 Mechanical Ventilator 100 06/05/20 05:59 26 Mechanical Ventilator 26.0 100 06/05/20 05:58 25 Mechanical Ventilator 100 06/05/20 05:00 101 26 143/92 (109) 90 06/05/20 05:00 25 Mechanical Ventilator 100 06/05/20 05:00 25 143/92 Mechanical Ventilator 100 06/05/20 04:00 85 06/05/20 04:00 25 Mechanical Ventilator 100 06/05/20 04:00 25 120/80 Mechanical Ventilator 100 06/05/20 04:00 97.8 80 21 133/85 (101) 98 06/05/20 04:00 Mechanical Ventilator 06/05/20 04:00 100 06/05/20 03:39 89 16 146/92 (110) 98 06/05/20 03:00 80 24 137/90 (106) 98 06/05/20 03:00 24 Mechanical Ventilator 100 06/05/20 03:00 24 149/62 Mechanical Ventilator 100 06/05/20 02:31 96 17 100 06/05/20 02:30 78 22 141/88 (105) 98 06/05/20 02:00 20 Mechanical Ventilator 100 06/05/20 02:00 20 141/87 Mechanical Ventilator 100 06/05/20 02:00 77 24 141/87 (105) 93 06/05/20 01:00 77 23 138/78 (98) 96 06/05/20 01:00 23 Mechanical Ventilator 100 06/05/20 01:00 23 138/78 Mechanical Ventilator 100 06/05/20 00:30 82 26 138/74 (95) 93 06/05/20 00:00 80 06/05/20 00:00 26 Mechanical Ventilator 100 06/05/20 00:00 100 06/05/20 00:00 Mechanical Ventilator 06/05/20 00:00 97.9 80 25 149/87 (107) 96 06/04/20 23:30 80 25 149/87 (107) 96 06/04/20 23:04 82 23 100 06/04/20 23:00 100 20 139/121 (127) 98 06/04/20 23:00 25 Mechanical Ventilator 100 06/04/20 23:00 25 149/87 Mechanical Ventilator 100 06/04/20 22:31 98.0 06/04/20 22:30 82 22 152/83 (106) 96 06/04/20 22:01 26 Mechanical Ventilator 26.0 100 06/04/20 22:00 81 25 141/80 (100) 95 06/04/20 22:00 25 Mechanical Ventilator 100 06/04/20 22:00 23 162/82 Mechanical Ventilator 100 06/04/20 21:00 82 25 147/76 (99) 97 06/04/20 21:00 26 Mechanical Ventilator 100 06/04/20 21:00 26 147/76 Mechanical Ventilator 100 06/04/20 20:43 Mechanical Ventilator 06/04/20 20:30 75 26 130/71 (90) 95 06/04/20 20:15 75 26 131/69 (89) 95 06/04/20 20:00 100 06/04/20 20:00 79 06/04/20 20:00 25 Mechanical Ventilator 100 06/04/20 20:00 25 130/62 Mechanical Ventilator 100 06/04/20 20:00 98.0 76 26 130/62 (84) 95 06/04/20 19:30 80 30 143/74 (97) 96 06/04/20 19:22 82 23 100 06/04/20 19:00 23 Mechanical Ventilator 100 06/04/20 19:00 23 120/64 Mechanical Ventilator 100 06/04/20 19:00 74 23 120/64 (82) 98 06/04/20 18:30 77 25 124/66 (85) 98 06/04/20 18:00 80 24 124/62 (82) 99 06/04/20 18:00 24 Mechanical Ventilator 100 06/04/20 18:00 24 124/62 Mechanical Ventilator 100 06/04/20 17:30 99 22 135/75 (95) 97 06/04/20 17:00 25 Mechanical Ventilator 100 06/04/20 17:00 25 130/71 Mechanical Ventilator 100 06/04/20 17:00 83 25 130/71 (90) 98 06/04/20 16:31 100 06/04/20 16:30 97 27 148/77 (100) 79 06/04/20 16:00 50 06/04/20 16:00 Mechanical Ventilator 06/04/20 16:00 27 Mechanical Ventilator 50 06/04/20 16:00 27 170/81 Mechanical Ventilator 50 06/04/20 16:00 98.0 109 21 170/81 (110) 80 06/04/20 16:00 81 06/04/20 15:30 83 22 124/66 (85) 96 06/04/20 15:00 82 29 121/58 (79) 98 06/04/20 15:00 24 Mechanical Ventilator 50 06/04/20 15:00 24 170/81 Non-Rebreather 50 06/04/20 14:30 85 28 120/62 (81) 97 06/04/20 14:00 24 Mechanical Ventilator 50 06/04/20 14:00 24 127/65 Mechanical Ventilator 50 06/04/20 14:00 92 25 127/65 (85) 98 06/04/20 13:51 26 Mechanical Ventilator 50 06/04/20 13:30 91 25 123/67 (85) 100 06/04/20 13:20 93 24 100 06/04/20 13:00 25 131/65 Mechanical Ventilator 60 06/04/20 13:00 97 30 131/65 (87) 99 06/04/20 12:30 98 28 127/69 (88) 98 06/04/20 12:00 99.6 106 27 136/68 (90) 94 06/04/20 12:00 24 136/68 Mechanical Ventilator 60 06/04/20 12:00 60 06/04/20 12:00 Mechanical Ventilator 06/04/20 12:00 108 06/04/20 11:30 115 25 152/74 (100) 89 Height (Feet): 5 Height (Inches): 5.00 Weight (Pounds): 308 HEENT: other - intubated Laboratory Tests Test 06/04/20 17:23 06/05/20 04:30 06/05/20 08:40 Arterial Blood pH 7.368 (7.350-7.450) 7.372 (7.350-7.450) Arterial Blood Partial Pressure CO2 57.6 mmHg (35.0-45.0) *H 54.5 mmHg (35.0-45.0) H Arterial Blood Partial Pressure O2 66.6 mmHg (75.0-100.0) L 57.2 mmHg (75.0-100.0) L Arterial Blood HCO3 32.4 mmol/L (22.0-26.0) H 30.9 mmol/L (22.0-26.0) H Arterial Blood Oxygen Saturation 92.2 % (95-100) L 86.2 % (95-100) *L Arterial Blood Base Excess 5.5 (-2-2) H 4.4 (-2-2) H Jeremiah Test Positive Positive White Blood Count 10.6 K/UL (4.8-10.8) Red Blood Count 4.61 M/UL (4.20-5.40) Hemoglobin 13.5 G/DL (12.0-16.0) Hematocrit 41.5 % (37.0-47.0) Mean Corpuscular Volume 90 FL (80-99) Mean Corpuscular Hemoglobin 29.2 PG (27.0-31.0) Mean Corpuscular Hemoglobin Concent 32.4 G/DL (32.0-36.0) Red Cell Distribution Width 14.1 % (11.6-14.8) Platelet Count 95 K/UL (150-450) L Mean Platelet Volume 9.9 FL (6.5-10.1) Neutrophils (%) (Auto) % (45.0-75.0) Lymphocytes (%) (Auto) % (20.0-45.0) Monocytes (%) (Auto) % (1.0-10.0) Eosinophils (%) (Auto) % (0.0-3.0) Basophils (%) (Auto) % (0.0-2.0) Differential Total Cells Counted 100 Neutrophils % (Manual) 92 % (45-75) H Lymphocytes % (Manual) 6 % (20-45) L Monocytes % (Manual) 2 % (1-10) Eosinophils % (Manual) 0 % (0-3) Basophils % (Manual) 0 % (0-2) Band Neutrophils 0 % (0-8) Platelet Estimate Decreased L Platelet Morphology Normal Anisocytosis 1+ Sodium Level 140 MMOL/L (136-145) Potassium Level 5.1 MMOL/L (3.5-5.1) Chloride Level 104 MMOL/L (98-107) Carbon Dioxide Level 32 MMOL/L (21-32) Anion Gap 4 mmol/L (5-15) L Blood Urea Nitrogen 30 mg/dL (7-18) H Creatinine 0.7 MG/DL (0.55-1.30) Estimat Glomerular Filtration Rate > 60 mL/min (>60) Glucose Level 361 MG/DL (74-106) H Calcium Level 9.3 MG/DL (8.5-10.1) Current Medications Medications (Trade) Dose Ordered Sig/Zelda Route PRN Reason Start Time Stop Time Status Last Admin Dose Admin Acetaminophen (Tylenol) 650 mg Q4H PRN NG Temp >100.5 05/31/20 21:45 06/30/20 21:44 06/02/20 14:36 Ceftriaxone Sodium 1 gm/ Sodium Chloride 55 ml @ 110 mls/hr DAILY IVPB 05/29/20 09:00 06/11/20 23:59 06/05/20 09:51 Chlorhexidine Gluconate (Inna-Hex 2%) 1 applic DAILY@2000 TOPIC 05/30/20 20:00 08/28/20 19:59 06/04/20 20:41 Dextrose (Dextrose 50%) 25 ml Q30M PRN IV Hypoglycemia 1/13/21 10:45 09/03/20 10:44 Dextrose (Dextrose 50%) 50 ml Q30M PRN IV Hypoglycemia 06/05/20 10:45 09/03/20 10:44 Dextrose/Sodium Chloride 1,000 ml @ 50 mls/hr Q20H IV 05/30/20 00:30 06/29/20 00:29 06/04/20 13:52 Enoxaparin Sodium (Lovenox) 40 mg DAILY SUBQ 05/30/20 10:00 08/28/20 09:59 06/04/20 09:16 Insulin Aspart (NovoLOG) Q6HR SUBQ 06/05/20 12:00 09/03/20 11:59 Lorazepam (Ativan 2mg/ml 1ml) 1 mg Q4H PRN IV For Anxiety 05/30/20 20:50 06/06/20 20:49 06/03/20 22:19 Methylprednisolone Sodium Succinate (Solu-MEDROL) 40 mg EVERY 12 HOURS IVP 06/03/20 12:30 09/01/20 12:29 06/05/20 09:50 Midazolam HCl 100 ml @ 0 mls/hr Q24H PRN IV To Patient Comfort 06/04/20 04:30 06/06/20 04:29 06/05/20 05:59 Morphine Sulfate (Morphine Sulfate) 2 mg Q2H PRN IVP For Pain 05/29/20 12:45 06/05/20 12:44 06/03/20 22:19 Pantoprazole (Protonix) 40 mg DAILY IVP 06/03/20 09:00 07/03/20 08:59 06/05/20 09:50 Fili Mcelroy MD Jun 05, 2020 11:03
--- NOTE | 2020-06-05 11:08 | NUR ---
RADIOLOGY DEPT., CHEST X-RAY DONE.-P.DYE
[2020-06-05] MEDS ORDERED: NovoLOG Insulin Flexpen SUBQ SCH (12:00)
[2020-06-05] MEDS: D5NS 1,000 ML IV SCH (12:12)
--- NOTE | 2020-06-05 13:02 | Diagnostic Imaging Report ---
Indication: Cough Technique: One view of the chest Comparison: 06/01/2020 Findings: There is interim marked worsening of bilateral infiltrates. Stable satisfactory tube positions. Impression: Worsening bilateral infiltrates
--- NOTE | 2020-06-05 13:05 | NUR ---
NURSE NOTES:Called pharmacy again as insulin pen for patient has still not arrived. Scheduled 1200 insulin not administered due to lack of insulin.
--- NOTE | 2020-06-05 13:21 | NUR ---
NURSE NOTES:Called pharmacy as new order for insulin. Requested insuln pen for patient.
[2020-06-05] MEDS: NovoLOG Insulin Flexpen SUBQ SCH ×3 (13:33→23:32)
--- NOTE | 2020-06-05 15:11 | NUR ---
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
--- NOTE | 2020-06-05 17:25 | Pulmonology Progress Note ---
Subjective ROS Limited/Unobtainable: Yes Interval Events: Remains intubated Constitutional: Reports: fever HEENT: Repors: no symptoms Respiratory: Reports: no symptoms Cardiovascular: Reports: no symptoms Gastrointestinal/Abdominal: Reports: no symptoms Genitourinary: Reports: no symptoms Allergies: Coded Allergies: No Known Allergies (Unverified , 05/28/20) All Systems: reviewed and negative except above Objective Last 24 Hour Vital Signs Date Time Temp Pulse Resp B/P (MAP) Pulse Ox O2 Delivery O2 Flow Rate FiO2 06/05/20 17:00 99.2 109 33 151/90 (110) 92 06/05/20 16:00 115 06/05/20 16:00 Mechanical Ventilator 06/05/20 16:00 116 35 145/91 (109) 91 06/05/20 16:00 100 06/05/20 15:30 105 25 100 06/05/20 15:00 33 136/81 Mechanical Ventilator 100 06/05/20 15:00 33 Mechanical Ventilator 100 06/05/20 15:00 99.4 98 33 136/81 (99) 94 06/05/20 14:52 99.4 06/05/20 14:22 27 Mechanical Ventilator 100 06/05/20 14:21 27 Non-Rebreather 100 06/05/20 14:00 95 27 130/80 (97) 93 06/05/20 14:00 27 130/80 Mechanical Ventilator 100 06/05/20 14:00 28 Mechanical Ventilator 100 06/05/20 13:00 93 27 130/79 (96) 93 06/05/20 13:00 29 135/84 Mechanical Ventilator 100 06/05/20 13:00 28 Mechanical Ventilator 100 06/05/20 12:54 29 132/82 100 06/05/20 12:54 27 130/79 Mechanical Ventilator 100 06/05/20 12:00 Mechanical Ventilator 06/05/20 12:00 97.6 98 28 116/83 (94) 94 06/05/20 12:00 27 Mechanical Ventilator 100 06/05/20 12:00 30 128/82 Mechanical Ventilator 100 06/05/20 12:00 98 06/05/20 12:00 100 06/05/20 11:23 108 25 100 06/05/20 11:00 28 Mechanical Ventilator 100 06/05/20 11:00 28 116/83 Mechanical Ventilator 100 06/05/20 10:54 111 29 139/82 (101) 90 06/05/20 10:00 98.5 107 28 145/81 (102) 91 06/05/20 10:00 27 Mechanical Ventilator 100 06/05/20 10:00 27 145/81 Mechanical Ventilator 100 06/05/20 09:00 96.8 103 25 138/87 (104) 97 06/05/20 09:00 25 Mechanical Ventilator 100 06/05/20 09:00 25 138/87 Mechanical Ventilator 100 06/05/20 08:23 97 06/05/20 08:00 Mechanical Ventilator 06/05/20 08:00 25 Mechanical Ventilator 100 06/05/20 08:00 26 148/83 Mechanical Ventilator 100 06/05/20 08:00 96 25 148/90 (109) 92 06/05/20 08:00 100 06/05/20 07:45 99 25 100 06/05/20 07:00 25 Mechanical Ventilator 100 06/05/20 07:00 25 140/79 Mechanical Ventilator 100 06/05/20 07:00 82 25 140/79 (99) 94 06/05/20 06:30 85 26 06/05/20 06:29 97.8 06/05/20 06:00 84 26 144/90 (108) 91 06/05/20 06:00 25 Mechanical Ventilator 100 06/05/20 06:00 25 140/90 Mechanical Ventilator 100 06/05/20 05:59 26 Mechanical Ventilator 26.0 100 06/05/20 05:58 25 Mechanical Ventilator 100 06/05/20 05:00 101 26 143/92 (109) 90 06/05/20 05:00 25 Mechanical Ventilator 100 06/05/20 05:00 25 143/92 Mechanical Ventilator 100 06/05/20 04:00 85 06/05/20 04:00 25 Mechanical Ventilator 100 06/05/20 04:00 25 120/80 Mechanical Ventilator 100 06/05/20 04:00 97.8 80 21 133/85 (101) 98 06/05/20 04:00 Mechanical Ventilator 06/05/20 04:00 100 06/05/20 03:39 89 16 146/92 (110) 98 06/05/20 03:00 80 24 137/90 (106) 98 06/05/20 03:00 24 Mechanical Ventilator 100 06/05/20 03:00 24 149/62 Mechanical Ventilator 100 06/05/20 02:31 96 17 100 06/05/20 02:30 78 22 141/88 (105) 98 06/05/20 02:00 20 Mechanical Ventilator 100 06/05/20 02:00 20 141/87 Mechanical Ventilator 100 06/05/20 02:00 77 24 141/87 (105) 93 06/05/20 01:00 77 23 138/78 (98) 96 06/05/20 01:00 23 Mechanical Ventilator 100 06/05/20 01:00 23 138/78 Mechanical Ventilator 100 06/05/20 00:30 82 26 138/74 (95) 93 06/05/20 00:00 80 06/05/20 00:00 26 Mechanical Ventilator 100 06/05/20 00:00 100 06/05/20 00:00 Mechanical Ventilator 06/05/20 00:00 97.9 80 25 149/87 (107) 96 06/04/20 23:30 80 25 149/87 (107) 96 06/04/20 23:04 82 23 100 06/04/20 23:00 100 20 139/121 (127) 98 06/04/20 23:00 25 Mechanical Ventilator 100 06/04/20 23:00 25 149/87 Mechanical Ventilator 100 06/04/20 22:31 98.0 06/04/20 22:30 82 22 152/83 (106) 96 06/04/20 22:01 26 Mechanical Ventilator 26.0 100 06/04/20 22:00 81 25 141/80 (100) 95 06/04/20 22:00 25 Mechanical Ventilator 100 06/04/20 22:00 23 162/82 Mechanical Ventilator 100 06/04/20 21:00 82 25 147/76 (99) 97 06/04/20 21:00 26 Mechanical Ventilator 100 06/04/20 21:00 26 147/76 Mechanical Ventilator 100 06/04/20 20:43 Mechanical Ventilator 06/04/20 20:30 75 26 130/71 (90) 95 06/04/20 20:15 75 26 131/69 (89) 95 06/04/20 20:00 100 06/04/20 20:00 79 06/04/20 20:00 25 Mechanical Ventilator 100 06/04/20 20:00 25 130/62 Mechanical Ventilator 100 06/04/20 20:00 98.0 76 26 130/62 (84) 95 06/04/20 19:30 80 30 143/74 (97) 96 06/04/20 19:22 82 23 100 06/04/20 19:00 23 Mechanical Ventilator 100 06/04/20 19:00 23 120/64 Mechanical Ventilator 100 06/04/20 19:00 74 23 120/64 (82) 98 06/04/20 18:30 77 25 124/66 (85) 98 06/04/20 18:00 80 24 124/62 (82) 99 06/04/20 18:00 24 Mechanical Ventilator 100 06/04/20 18:00 24 124/62 Mechanical Ventilator 100 06/04/20 17:30 99 22 135/75 (95) 97 Intake and Output 06/04/20 06/05/20 19:00 07:00 Intake Total 1616.79391 ml 1872.2 ml Output Total 1750 ml 1380 ml Balance -133.03309 ml 492.2 ml Free Water 300 ml IV Total 896.44714 ml 852.2 ml Tube Feeding 720 ml 720 ml Output Urine Total 1750 ml 1380 ml General Appearance: no acute distress HEENT: normocephalic Respiratory: chest wall non-tender Cardiovascular: normal peripheral pulses Abdomen: normal bowel sounds Laboratory Tests 06/05/20 04:30: White Blood Count 10.6, Red Blood Count 4.61, Hemoglobin 13.5, Hematocrit 41.5, Mean Corpuscular Volume 90, Mean Corpuscular Hemoglobin 29.2, Mean Corpuscular Hemoglobin Concent 32.4, Red Cell Distribution Width 14.1, Platelet Count 95L, Mean Platelet Volume 9.9, Neutrophils (%) (Auto) , Lymphocytes (%) (Auto) , Monocytes (%) (Auto) , Eosinophils (%) (Auto) , Basophils (%) (Auto) , Differential Total Cells Counted 100, Neutrophils % (Manual) 92H, Lymphocytes % (Manual) 6L, Monocytes % (Manual) 2, Eosinophils % (Manual) 0, Basophils % (Manual) 0, Band Neutrophils 0, Platelet Estimate DecreasedL, Platelet Morphology Normal, Anisocytosis 1+, Sodium Level 140, Potassium Level 5.1, Chloride Level 104, Carbon Dioxide Level 32, Anion Gap 4L, Blood Urea Nitrogen 30H, Creatinine 0.7, Estimat Glomerular Filtration Rate > 60, Glucose Level 361H , Calcium Level 9.3 06/05/20 08:40: Arterial Blood pH 7.372, Arterial Blood Partial Pressure CO2 54.5H, Arterial Blood Partial Pressure O2 57.2L, Arterial Blood HCO3 30.9H, Arterial Blood Oxygen Saturation 86.2*L, Arterial Blood Base Excess 4.4H, Jeremiah Test Positive Current Medications Medications (Trade) Dose Ordered Sig/Zelda Route PRN Reason Start Time Stop Time Status Last Admin Dose Admin Acetaminophen (Tylenol) 650 mg Q4H PRN NG Temp >100.5 05/31/20 21:45 06/30/20 21:44 06/02/20 14:36 Ceftriaxone Sodium 1 gm/ Sodium Chloride 55 ml @ 110 mls/hr DAILY IVPB 05/29/20 09:00 06/11/20 23:59 06/05/20 09:51 Chlorhexidine Gluconate (Inna-Hex 2%) 1 applic DAILY@2000 TOPIC 05/30/20 20:00 08/28/20 19:59 06/04/20 20:41 Dextrose (Dextrose 50%) 25 ml Q30M PRN IV Hypoglycemia 06/05/20 10:45 09/03/20 10:44 Dextrose (Dextrose 50%) 50 ml Q30M PRN IV Hypoglycemia 06/05/20 10:45 09/03/20 10:44 Dextrose/Sodium Chloride 1,000 ml @ 50 mls/hr Q20H IV 05/30/20 00:30 06/29/20 00:29 06/05/20 12:12 Enoxaparin Sodium (Lovenox) 40 mg DAILY SUBQ 05/30/20 10:00 08/28/20 09:59 06/04/20 09:16 Fentanyl Citrate 250 ml @ 1 mls/hr Q24H IV 06/05/20 12:30 06/07/20 12:29 06/05/20 12:54 Insulin Aspart (NovoLOG) Q6HR SUBQ 06/05/20 12:00 09/03/20 11:59 06/05/20 13:33 Lorazepam (Ativan 2mg/ml 1ml) 1 mg Q4H PRN IV For Anxiety 05/30/20 20:50 06/06/20 20:49 06/03/20 22:19 Methylprednisolone Sodium Succinate (Solu-MEDROL) 40 mg EVERY 12 HOURS IVP 06/03/20 12:30 09/01/20 12:29 06/05/20 09:50 Midazolam HCl 100 ml @ 0 mls/hr Q24H PRN IV To Patient Comfort 06/04/20 04:30 06/06/20 04:29 06/05/20 14:22 Pantoprazole (Protonix) 40 mg DAILY IVP 06/03/20 09:00 07/03/20 08:59 06/05/20 09:50 Assessment/Plan Assessment/Plan 1. COVID-19 pneumonia -Intubated 05/28/20 - We will continue broad-spectrum antibiotics. - We will continue dexamethasone -Defer use of remdesivir to ID -Continue monitoring SaO2 and keep it >92% -Continue PEEP 16; ; FiO2 100% - -will begin OGT feeding - May need pressors -Continue sedation -Need to keep patient completely sedated. 2. Hyponatremia -Per primary MD 3. Elevated inflammatory markers -Continue Javier Gonzalez MD Jun 05, 2020 17:25
--- NOTE | 2020-06-05 19:20 | NUR ---
NURSE HAND-OFF REPORT: Latest Vital Signs: Temperature 98.8 , Pulse 109 , B/P 152 /93 , Respiratory Rate 16 , O2 SAT 100 , Mechanical Ventilator, O2 Flow Rate . Vital Sign Comment: EKG Rhythm: Sinus Rhythm Rhythm change?: N MD Notified?: - MD Response: Latest Meyers Fall Score: 50 Fall Risk: High Risk Safety Measures: Call light Within Reach, Bed Alarm Zone 1, Side Rails Side Rails x2, Bed position Low and Locked. Fall Precautions: Yellow Socks Yellow Gown Door Sign Patient Fall Education Report given to RAKEL French.
--- NOTE | 2020-06-05 19:30 | NUR ---
NURSE NOTES: Received report from RAKEL Lockett. patient in bed sedated. no s/s of acute distress noted. orally intubated ETT 7.5/23cm AC 15, TV 500 Fi02 100% peep of 16 satting 100%.HR ST on traffic monitor specialist HR 102. HOB elevated. OGT infusing vital AF 1.2 at 60cc/hr. Right upper arm PICC line intact infusing Fentanyl drip at 90mcg/hr, Versed 6mg/hr, D5 Ns at 50cc/hr. Lennon draining.Turned and repositioned patient in bed.checked Bilateral wrist restraint to prevent patient from pulling out tubing. Covid +, Airborne precaution maintained and observed. will continue plan of care.
[2020-06-05] MEDS: Dyna-Hex 2% Top Sol 2oz TOPIC SCH (20:01)
--- NOTE | 2020-06-05 21:30 | NUR ---
NURSE NOTES: patient in bed sedated RASS score -2. Continue on Fentanyl drip at 90mcg/hr, Versed 6mg/hr and D5NS at 50cc/hr infusing on Right upper arm PICC line. repositioned patient in bed. oral care provided. fi02 100% satting 100%. will continue plan of care.
--- NOTE | 2020-06-05 23:36 | NUR ---
NURSE NOTES: Blood sugar 351mg/dl with NovoLog insulin 10units.
[2020-06-06] VITALS (26 sets, daily range): BP systolic 105–160; BP diastolic 65–97
--- NOTE | 2020-06-06 01:30 | NUR ---
NURSE NOTES: patient in bed sedated RASS score -2. Continue on Fentanyl drip at 90mcg/hr, Versed 4mg/hr and D5NS at 50cc/hr infusing on Right upper arm PICC line. repositioned patient in bed. oral care provided. fi02 100% satting 100%. will continue plan of care.
--- NOTE | 2020-06-06 03:30 | NUR ---
NURSE NOTES: Bed bath given tolerated well.
[2020-06-06] MEDS: NovoLOG Insulin Flexpen SUBQ SCH ×7 (05:50→16:12)
[2020-06-06] MEDS ORDERED: Versed 50mg/NS 100ml 100 ML IV PRN (06:00)
[2020-06-06] MEDS: Versed 50mg/NS 100ml 100 ML IV PRN ×2 (06:04→10:04)
[2020-06-06] MEDS: D5NS 1,000 ML IV SCH (06:12)
[2020-06-06 06:15] LABS: HEMATOCRIT 39.8 % (37.0-47.0); HEMOGLOBIN 12.6 G/DL (12.0-16.0); MEAN CORPUSCULAR VOLUME 91 FL (80-99); PLATELET COUNT 99 K/UL (150-450); RED BLOOD COUNT 4.35 M/UL (4.20-5.40); RED CELL DISTRIBUTION WIDTH 14.2 % (11.6-14.8); WHITE BLOOD COUNT 14.2 K/UL (4.8-10.8)
[2020-06-06 06:33] LABS: ANION GAP 4 mmol/L (5-15); BLOOD UREA NITROGEN 32 mg/dL (7-18); CALCIUM 9.3 MG/DL (8.5-10.1); CARBON DIOXIDE 35 MMOL/L (21-32); CHLORIDE 103 MMOL/L (98-107); CREATININE 0.7 MG/DL (0.55-1.30); POTASSIUM 4.8 MMOL/L (3.5-5.1); SODIUM 142 MMOL/L (136-145)
--- NOTE | 2020-06-06 07:07 | NUR ---
NURSE NOTES: OGT feeding Running Glucerna 1.2 at 60cc/hr per Dietitian recommendation due to Vital AF 1.2 out of stock. Seen and examined by Dr. Del Cid made aware. Changed D5NS at 50cc to NS at 50cc/hr noted and carried out.
--- NOTE | 2020-06-06 07:15 | NUR ---
RESPIRATORY NOTE: PT received on ACVC: 15, 500, 100%, +16. Alarms are on and audible. Vent circuit is secure and out of the way. Airway is secure and patent. Bilateral soft restrains securely in place. No s/s of respiratory distress noted at this time. Will continue to closely monitor.
--- NOTE | 2020-06-06 07:19 | General Progress Note ---
Subjective Constitutional: Reports: weakness Allergies: Coded Allergies: No Known Allergies (Unverified , 05/28/20) All Systems: reviewed and negative except above Subjective intubated sedatde in icu Objective Last 24 Hour Vital Signs Date Time Temp Pulse Resp B/P (MAP) Pulse Ox O2 Delivery O2 Flow Rate FiO2 06/06/20 06:34 98.4 06/06/20 06:30 88 26 06/06/20 06:04 25 Mechanical Ventilator 26.0 100 06/06/20 06:00 25 125/77 Mechanical Ventilator 100 06/06/20 06:00 25 Mechanical Ventilator 100 06/06/20 06:00 91 22 125/77 (93) 100 06/06/20 05:00 25 149/93 Mechanical Ventilator 100 06/06/20 05:00 25 Mechanical Ventilator 100 06/06/20 05:00 114 29 149/93 (111) 99 06/06/20 04:00 98.4 106 24 155/97 (116) 96 06/06/20 04:00 94 06/06/20 04:00 100 06/06/20 04:00 24 155/97 Mechanical Ventilator 100 06/06/20 04:00 24 Mechanical Ventilator 100 06/06/20 04:00 Mechanical Ventilator 06/06/20 03:43 100 27 100 06/06/20 03:00 26 127/83 Mechanical Ventilator 100 06/06/20 03:00 26 Mechanical Ventilator 100 06/06/20 03:00 86 26 127/83 (98) 100 06/06/20 02:30 84 20 132/89 (103) 100 06/06/20 02:00 84 20 123/81 (95) 100 06/06/20 02:00 20 123/81 Mechanical Ventilator 100 06/06/20 02:00 20 Mechanical Ventilator 100 06/06/20 01:30 83 22 119/82 (94) 100 06/06/20 01:00 22 123/82 Mechanical Ventilator 100 06/06/20 01:00 22 Mechanical Ventilator 100 06/06/20 01:00 85 22 123/82 (96) 100 06/06/20 00:00 97.9 89 20 129/82 (98) 100 06/06/20 00:00 Mechanical Ventilator 06/06/20 00:00 20 129/82 Mechanical Ventilator 100 06/06/20 00:00 20 Non-Rebreather 100 06/06/20 00:00 100 06/06/20 00:00 90 06/05/20 23:38 89 22 100 06/05/20 23:30 89 25 128/85 (99) 100 06/05/20 23:05 98.4 06/05/20 23:00 22 128/85 Mechanical Ventilator 100 06/05/20 23:00 25 Mechanical Ventilator 100 06/05/20 23:00 89 21 133/86 (102) 100 06/05/20 22:35 22 Mechanical Ventilator 26.0 100 06/05/20 22:00 23 121/82 Mechanical Ventilator 100 06/05/20 22:00 23 Mechanical Ventilator 100 06/05/20 22:00 93 22 133/83 (100) 100 06/05/20 21:00 95 24 130/83 (99) 100 06/05/20 21:00 25 130/81 Mechanical Ventilator 100 06/05/20 21:00 25 Mechanical Ventilator 100 06/05/20 20:00 101 06/05/20 20:00 100 06/05/20 20:00 26 140/83 Mechanical Ventilator 100 06/05/20 20:00 25 Mechanical Ventilator 100 06/05/20 20:00 98.4 101 32 144/83 (103) 100 06/05/20 20:00 Mechanical Ventilator 06/05/20 19:00 106 20 100 06/05/20 19:00 98.8 109 18 152/93 (112) 100 06/05/20 19:00 16 152/93 Mechanical Ventilator 100 06/05/20 19:00 16 Mechanical Ventilator 100 06/05/20 18:00 29 133/90 Mechanical Ventilator 100 06/05/20 18:00 29 Mechanical Ventilator 100 06/05/20 18:00 101 29 132/87 (102) 92 06/05/20 17:00 99.2 109 33 151/90 (110) 92 06/05/20 17:00 31 146/86 Mechanical Ventilator 100 06/05/20 17:00 31 Mechanical Ventilator 100 06/05/20 16:00 33 150/95 Mechanical Ventilator 100 06/05/20 16:00 33 Mechanical Ventilator 100 06/05/20 16:00 115 06/05/20 16:00 Mechanical Ventilator 06/05/20 16:00 116 35 145/91 (109) 91 06/05/20 16:00 100 06/05/20 15:30 105 25 100 06/05/20 15:00 33 136/81 Mechanical Ventilator 100 06/05/20 15:00 33 Mechanical Ventilator 100 06/05/20 15:00 99.4 98 33 136/81 (99) 94 06/05/20 14:52 99.4 06/05/20 14:22 27 Mechanical Ventilator 100 06/05/20 14:21 27 Non-Rebreather 100 06/05/20 14:00 95 27 130/80 (97) 93 06/05/20 14:00 27 130/80 Mechanical Ventilator 100 06/05/20 14:00 28 Mechanical Ventilator 100 06/05/20 13:00 93 27 130/79 (96) 93 06/05/20 13:00 29 135/84 Mechanical Ventilator 100 06/05/20 13:00 28 Mechanical Ventilator 100 06/05/20 12:54 29 132/82 100 06/05/20 12:54 27 130/79 Mechanical Ventilator 100 06/05/20 12:00 Mechanical Ventilator 06/05/20 12:00 97.6 98 28 116/83 (94) 94 06/05/20 12:00 27 Mechanical Ventilator 100 06/05/20 12:00 30 128/82 Mechanical Ventilator 100 06/05/20 12:00 98 06/05/20 12:00 100 06/05/20 11:23 108 25 100 06/05/20 11:00 28 Mechanical Ventilator 100 06/05/20 11:00 28 116/83 Mechanical Ventilator 100 06/05/20 10:54 111 29 139/82 (101) 90 06/05/20 10:00 98.5 107 28 145/81 (102) 91 06/05/20 10:00 27 Mechanical Ventilator 100 06/05/20 10:00 27 145/81 Mechanical Ventilator 100 06/05/20 09:00 96.8 103 25 138/87 (104) 97 06/05/20 09:00 25 Mechanical Ventilator 100 06/05/20 09:00 25 138/87 Mechanical Ventilator 100 06/05/20 08:23 97 06/05/20 08:00 Mechanical Ventilator 06/05/20 08:00 25 Mechanical Ventilator 100 06/05/20 08:00 26 148/83 Mechanical Ventilator 100 06/05/20 08:00 96 25 148/90 (109) 92 06/05/20 08:00 100 06/05/20 07:45 99 25 100 Intake and Output 06/05/20 06/06/20 19:00 07:00 Intake Total 1566.2 ml 1775.5 ml Output Total 1060 ml 880 ml Balance 506.2 ml 895.5 ml Free Water 300 ml IV Total 846.2 ml 755.5 ml Tube Feeding 720 ml 720 ml Output Urine Total 1060 ml 880 ml Laboratory Tests 06/05/20 08:40: Arterial Blood pH 7.372, Arterial Blood Partial Pressure CO2 54.5H, Arterial Blood Partial Pressure O2 57.2L, Arterial Blood HCO3 30.9H, Arterial Blood Oxygen Saturation 86.2*L, Arterial Blood Base Excess 4.4H, Jeremiah Test Positive 06/06/20 05:00: White Blood Count 14.2H, Red Blood Count 4.35, Hemoglobin 12.6, Hematocrit 39.8, Mean Corpuscular Volume 91, Mean Corpuscular Hemoglobin 29.0, Mean Corpuscular Hemoglobin Concent 31.8L, Red Cell Distribution Width 14.2, Platelet Count 99L, Mean Platelet Volume 9.9, Neutrophils (%) (Auto) , Lymphocytes (%) (Auto) , Monocytes (%) (Auto) , Eosinophils (%) (Auto) , Basophils (%) (Auto) , Neutrophils % (Manual) [Pending], Lymphocytes % (Manual) [Pending], Platelet Estimate [Pending], Platelet Morphology [Pending], Sodium Level 142, Potassium Level 4.8, Chloride Level 103, Carbon Dioxide Level 35H, Anion Gap 4L, Blood Urea Nitrogen 32H, Creatinine 0.7, Estimat Glomerular Filtration Rate > 60, Glucose Level 352H, Calcium Level 9.3 Height (Feet): 5 Height (Inches): 5.00 Weight (Pounds): 308 General Appearance: lethargic EENT: normal ENT inspection Neck: normal alignment Cardiovascular: normal peripheral pulses, normal rate, regular rhythm Respiratory/Chest: chest wall non-tender, lungs clear, normal breath sounds Abdomen: normal bowel sounds, non tender, soft Extremities: normal inspection Edema: no edema noted Arm (L), no edema noted Arm (R), no edema noted Leg (L), no edema noted Leg (R), no edema noted Pedal (L), no edema noted Pedal (R), no edema noted Generalized Neurologic: motor weakness Skin: normal pigmentation, warm/dry Assessment/Plan Problem List: (1) Hypoxia ICD Codes: R09.02 - Hypoxemia SNOMED: 802626530 (2) Respiratory failure ICD Codes: J96.90 - Respiratory failure, unspecified, unspecified whether with hypoxia or hypercapnia SNOMED: 084545262 (3) Respiratory distress ICD Codes: R06.03 - Acute respiratory distress; J12.82 - Pneumonia due to coronavirus disease 2019 SNOMED: 530542001 (4) Pneumonia due to COVID-19 virus ICD Codes: U07.1 - COVID-19; J12.82 - Pneumonia due to coronavirus disease 2019 SNOMED: 052754802957450460 Status: unchanged Assessment/Plan: vent abx id pulm f/u cbc bmp am Tank Del Cid DO Jun 06, 2020 07:19
--- NOTE | 2020-06-06 07:31 | NUR ---
HAND-OFF: Report given to Luisa ELLINGTON.
--- NOTE | 2020-06-06 07:32 | NUR ---
NURSE NOTES: Patient received from Sophy Pulido RN. Lightly sedated RASS -2. Bilat pupils equal and round 2 mm with sluggish rxn to light; gag reflex intact. Patient is SR to cardiac catheterization technician with 2+ radial and dorsalis pedis pulses. Generalized edema noted to extremities. cap refill less than 2 sec. Patient is orally intubated with a 7.5 ETT noted 23 cm at the lip with the following: AC mode15 TV 500 FiO2 100 % Peep 16. Lung vela noted diminished upon auscultation. Patient has OGT feeding as tolerated. Abdomen is round and soft w/ active bowel sounds to all quadrants. Lennon catheter noted draining yellow urine. Skin is intact. Pt has a LH 22g and LW 18g IVs saline-locked and a LINDA PICC with dry and intact dressing running fentanyl drip at 90 mcg/hr, versed gtt at 4 mg/hr, and NS at 50 cc/hr. ASSISTANT HVAC MECHANIC restraints on - radial pulses palpable, skin to both wrists intact without redness. Bed in lowest position, alarm on, side rails up x 2, call light within reach. Airborne isolation observed. Will continue to monitor.
--- NOTE | 2020-06-06 07:59 | Consultation ---
DATE OF CONSULTATION: 06/06/2020 ENDOCRINOLOGY CONSULTATION CONSULTING PHYSICIAN: Huber Adame MD. REFERRING PHYSICIAN: Tank Del Cid DO. REASON FOR CONSULTATION: Diabetes management. HISTORY OF PRESENT ILLNESS: This is important to note that history was obtained from review of the chart and medical records since the patient is intubated in the ICU and is not able to provide any meaningful history. The patient is a 50-year-old female, unfortunately here now with COVID pneumonia, severe, intubated in the ICU. Started steroids. Glucose is elevated. Therefore, Endocrinology was consulted. PAST MEDICAL HISTORY: Questionable diabetes. FAMILY HISTORY: Noncontributory. SOCIAL HISTORY: No smoking, alcohol, or drug use. REVIEW OF SYSTEMS: Unobtainable. MEDICATIONS: Reviewed and reconciled. LABORATORY VALUES: WBC 14, hemoglobin 12, hematocrit 39, platelets of 89 Sodium 140, potassium 5.1, chloride 104, bicarb 22, BUN 30, creatinine 0.7, glucose of 361. PHYSICAL EXAMINATION: VITAL SIGNS: Blood pressure of 125/77, heart rate 91, respiratory rate 25, temperature 98.4. The rest of the examination was deferred due to COVID isolation. DIAGNOSES: 1. COVID pneumonia with respiratory failure. 2. Exacerbated diabetes. PLAN: 1. Change glucose monitoring to every 4 hours with NovoLog coverage. 2. Add NovoLog 6 units in addition to the sliding scale every 4 hours. 3. Hypoglycemia protocol. Further adjustment according to blood glucose values. Thank you, Dr. Del Cid, for the courtesy of this consultation. Huber Adame M.D. DR: RAKEL/LINUS JOB#: [id number] CC: HUEY
[2020-06-06] MEDS: Pantoprazole Inj IVP SCH (08:04)
[2020-06-06] MEDS: Solu-MEDROL 40mg Inj IVP SCH ×2 (08:04→20:36)
[2020-06-06] MEDS: cefTRIAXone 1 GM in NS 55 ML IVPB SCH (08:05)
--- NOTE | 2020-06-06 08:23 | Infectious Diseases Prog Note ---
Assessment/Plan Assessment/Plan A 1. COVID19 pneumonia 2. Hypoxic respiratory failure 3. Morbid obesity P 1. Finished remdesivir course 2. continue Solumedrol 3. continue Rocephin 4. continue isolation Subjective ROS Limited/Unobtainable: Yes Constitutional: Denies: fever Neurologic: Reports: other - sedated, on restraint Allergies: Coded Allergies: No Known Allergies (Unverified , 05/28/20) Objective Last 24 Hour Vital Signs Date Time Temp Pulse Resp B/P (MAP) Pulse Ox O2 Delivery O2 Flow Rate FiO2 06/06/20 07:00 87 20 113/76 (88) 100 06/06/20 07:00 25 Mechanical Ventilator 100 06/06/20 07:00 25 113/76 Mechanical Ventilator 100 06/06/20 06:34 98.4 06/06/20 06:30 88 26 06/06/20 06:04 25 Mechanical Ventilator 26.0 100 06/06/20 06:00 25 125/77 Mechanical Ventilator 100 06/06/20 06:00 25 Mechanical Ventilator 100 06/06/20 06:00 91 22 125/77 (93) 100 06/06/20 05:00 25 149/93 Mechanical Ventilator 100 06/06/20 05:00 25 Mechanical Ventilator 100 06/06/20 05:00 114 29 149/93 (111) 99 06/06/20 04:00 98.4 106 24 155/97 (116) 96 06/06/20 04:00 94 06/06/20 04:00 100 06/06/20 04:00 24 155/97 Mechanical Ventilator 100 06/06/20 04:00 24 Mechanical Ventilator 100 06/06/20 04:00 Mechanical Ventilator 06/06/20 03:43 100 27 100 06/06/20 03:00 26 127/83 Mechanical Ventilator 100 06/06/20 03:00 26 Mechanical Ventilator 100 06/06/20 03:00 86 26 127/83 (98) 100 06/06/20 02:30 84 20 132/89 (103) 100 06/06/20 02:00 84 20 123/81 (95) 100 06/06/20 02:00 20 123/81 Mechanical Ventilator 100 06/06/20 02:00 20 Mechanical Ventilator 100 06/06/20 01:30 83 22 119/82 (94) 100 06/06/20 01:00 22 123/82 Mechanical Ventilator 100 06/06/20 01:00 22 Mechanical Ventilator 100 06/06/20 01:00 85 22 123/82 (96) 100 06/06/20 00:00 97.9 89 20 129/82 (98) 100 06/06/20 00:00 Mechanical Ventilator 06/06/20 00:00 20 129/82 Mechanical Ventilator 100 06/06/20 00:00 20 Non-Rebreather 100 06/06/20 00:00 100 06/06/20 00:00 90 06/05/20 23:38 89 22 100 06/05/20 23:30 89 25 128/85 (99) 100 06/05/20 23:05 98.4 06/05/20 23:00 22 128/85 Mechanical Ventilator 100 06/05/20 23:00 25 Mechanical Ventilator 100 06/05/20 23:00 89 21 133/86 (102) 100 06/05/20 22:35 22 Mechanical Ventilator 26.0 100 06/05/20 22:00 23 121/82 Mechanical Ventilator 100 06/05/20 22:00 23 Mechanical Ventilator 100 06/05/20 22:00 93 22 133/83 (100) 100 06/05/20 21:00 95 24 130/83 (99) 100 06/05/20 21:00 25 130/81 Mechanical Ventilator 100 06/05/20 21:00 25 Mechanical Ventilator 100 06/05/20 20:00 101 06/05/20 20:00 100 06/05/20 20:00 26 140/83 Mechanical Ventilator 100 06/05/20 20:00 25 Mechanical Ventilator 100 06/05/20 20:00 98.4 101 32 144/83 (103) 100 06/05/20 20:00 Mechanical Ventilator 06/05/20 19:00 106 20 100 06/05/20 19:00 98.8 109 18 152/93 (112) 100 06/05/20 19:00 16 152/93 Mechanical Ventilator 100 06/05/20 19:00 16 Mechanical Ventilator 100 06/05/20 18:00 29 133/90 Mechanical Ventilator 100 06/05/20 18:00 29 Mechanical Ventilator 100 06/05/20 18:00 101 29 132/87 (102) 92 06/05/20 17:00 99.2 109 33 151/90 (110) 92 06/05/20 17:00 31 146/86 Mechanical Ventilator 100 06/05/20 17:00 31 Mechanical Ventilator 100 06/05/20 16:00 33 150/95 Mechanical Ventilator 100 06/05/20 16:00 33 Mechanical Ventilator 100 06/05/20 16:00 115 06/05/20 16:00 Mechanical Ventilator 06/05/20 16:00 116 35 145/91 (109) 91 06/05/20 16:00 100 06/05/20 15:30 105 25 100 06/05/20 15:00 33 136/81 Mechanical Ventilator 100 06/05/20 15:00 33 Mechanical Ventilator 100 06/05/20 15:00 99.4 98 33 136/81 (99) 94 06/05/20 14:52 99.4 06/05/20 14:22 27 Mechanical Ventilator 100 06/05/20 14:21 27 Non-Rebreather 100 06/05/20 14:00 95 27 130/80 (97) 93 06/05/20 14:00 27 130/80 Mechanical Ventilator 100 06/05/20 14:00 28 Mechanical Ventilator 100 06/05/20 13:00 93 27 130/79 (96) 93 06/05/20 13:00 29 135/84 Mechanical Ventilator 100 06/05/20 13:00 28 Mechanical Ventilator 100 06/05/20 12:54 29 132/82 100 06/05/20 12:54 27 130/79 Mechanical Ventilator 100 06/05/20 12:00 Mechanical Ventilator 06/05/20 12:00 97.6 98 28 116/83 (94) 94 06/05/20 12:00 27 Mechanical Ventilator 100 06/05/20 12:00 30 128/82 Mechanical Ventilator 100 06/05/20 12:00 98 06/05/20 12:00 100 06/05/20 11:23 108 25 100 06/05/20 11:00 28 Mechanical Ventilator 100 06/05/20 11:00 28 116/83 Mechanical Ventilator 100 06/05/20 10:54 111 29 139/82 (101) 90 06/05/20 10:00 98.5 107 28 145/81 (102) 91 06/05/20 10:00 27 Mechanical Ventilator 100 06/05/20 10:00 27 145/81 Mechanical Ventilator 100 06/05/20 09:00 96.8 103 25 138/87 (104) 97 06/05/20 09:00 25 Mechanical Ventilator 100 06/05/20 09:00 25 138/87 Mechanical Ventilator 100 06/05/20 08:23 97 Height (Feet): 5 Height (Inches): 5.00 Weight (Pounds): 308 HEENT: other - orally intubated Respiratory/Chest: other - on ventilator, THJ2=452% Cardiovascular: normal rate, other - R arm PICC line Abdomen: soft, non tender, other - tube feeding Extremities: other - edema more in hands Neurologic/Psychiatric: other - sedated Laboratory Tests Test 06/05/20 08:40 06/06/20 05:00 06/06/20 08:17 Arterial Blood pH 7.372 (7.350-7.450) Arterial Blood Partial Pressure CO2 54.5 mmHg (35.0-45.0) H Arterial Blood Partial Pressure O2 57.2 mmHg (75.0-100.0) L Arterial Blood HCO3 30.9 mmol/L (22.0-26.0) H Arterial Blood Oxygen Saturation 86.2 % (95-100) *L Arterial Blood Base Excess 4.4 (-2-2) H Jeremiah Test Positive White Blood Count 14.2 K/UL (4.8-10.8) H Red Blood Count 4.35 M/UL (4.20-5.40) Hemoglobin 12.6 G/DL (12.0-16.0) Hematocrit 39.8 % (37.0-47.0) Mean Corpuscular Volume 91 FL (80-99) Mean Corpuscular Hemoglobin 29.0 PG (27.0-31.0) Mean Corpuscular Hemoglobin Concent 31.8 G/DL (32.0-36.0) L Red Cell Distribution Width 14.2 % (11.6-14.8) Platelet Count 99 K/UL (150-450) L Mean Platelet Volume 9.9 FL (6.5-10.1) Neutrophils (%) (Auto) % (45.0-75.0) Lymphocytes (%) (Auto) % (20.0-45.0) Monocytes (%) (Auto) % (1.0-10.0) Eosinophils (%) (Auto) % (0.0-3.0) Basophils (%) (Auto) % (0.0-2.0) Neutrophils % (Manual) Pending Lymphocytes % (Manual) Pending Platelet Estimate Pending Platelet Morphology Pending Sodium Level 142 MMOL/L (136-145) Potassium Level 4.8 MMOL/L (3.5-5.1) Chloride Level 103 MMOL/L (98-107) Carbon Dioxide Level 35 MMOL/L (21-32) H Anion Gap 4 mmol/L (5-15) L Blood Urea Nitrogen 32 mg/dL (7-18) H Creatinine 0.7 MG/DL (0.55-1.30) Estimat Glomerular Filtration Rate > 60 mL/min (>60) Glucose Level 352 MG/DL (74-106) H Calcium Level 9.3 MG/DL (8.5-10.1) POC Whole Blood Glucose 389 MG/DL (74-106) H Current Medications Medications (Trade) Dose Ordered Sig/Zelda Route PRN Reason Start Time Stop Time Status Last Admin Dose Admin Acetaminophen (Tylenol) 650 mg Q4H PRN NG Temp >100.5 05/31/20 21:45 06/30/20 21:44 06/02/20 14:36 Ceftriaxone Sodium 1 gm/ Sodium Chloride 55 ml @ 110 mls/hr DAILY IVPB 05/29/20 09:00 06/11/20 23:59 06/06/20 08:05 Chlorhexidine Gluconate (Inna-Hex 2%) 1 applic DAILY@2000 TOPIC 05/30/20 20:00 08/28/20 19:59 06/05/20 20:01 Dextrose (Dextrose 50%) 25 ml Q30M PRN IV Hypoglycemia 06/05/20 10:45 09/03/20 10:44 Dextrose (Dextrose 50%) 50 ml Q30M PRN IV Hypoglycemia 06/05/20 10:45 09/03/20 10:44 Enoxaparin Sodium (Lovenox) 40 mg DAILY SUBQ 05/30/20 10:00 08/28/20 09:59 06/04/20 09:16 Fentanyl Citrate 250 ml @ 1 mls/hr Q24H IV 06/05/20 12:30 06/07/20 12:29 06/05/20 12:54 Insulin Aspart (NovoLOG) EVERY 4 HOURS SUBQ 06/06/20 09:00 09/03/20 11:59 Insulin Aspart (NovoLOG) 6 units EVERY 4 HOURS SUBQ 06/06/20 09:00 09/04/20 08:59 Lorazepam (Ativan 2mg/ml 1ml) 1 mg Q4H PRN IV For Anxiety 05/30/20 20:50 06/06/20 20:49 06/03/20 22:19 Methylprednisolone Sodium Succinate (Solu-MEDROL) 40 mg EVERY 12 HOURS IVP 06/03/20 12:30 09/01/20 12:29 06/06/20 08:04 Midazolam HCl 100 ml @ 0 mls/hr Q24H PRN IV sedation 06/06/20 06:00 06/08/20 05:59 06/06/20 06:04 Pantoprazole (Protonix) 40 mg DAILY IVP 06/03/20 09:00 07/03/20 08:59 06/06/20 08:04 Sodium Chloride 1,000 ml @ 50 mls/hr Q20H IV 06/06/20 08:00 07/06/20 07:59 06/06/20 08:04 Colt Arana MD Jun 06, 2020 08:23
[2020-06-06] MEDS: Enoxaparin 40mg Inj SUBQ SCH (09:00)
--- NOTE | 2020-06-06 11:39 | NUR ---
NURSE NOTES: Dr. Nava at bedside. Mechanical ventilator FiO2 at 90%.
[2020-06-06] MEDS: fentaNYL 2500mcg/NS 250ml 250 ML IV SCH (13:01)
--- NOTE | 2020-06-06 15:13 | NUR ---
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
[2020-06-06] MEDS ORDERED: D5NS 1000ml IV ONE (15:38)
[2020-06-06] MEDS ORDERED: Tubing IV Secondary IV ONE (15:38)
[2020-06-06] MEDS ORDERED: NS 275ml ONE (15:38)
[2020-06-06] MEDS ORDERED: Sterile Water Irrig 1000ml IRRIG ONE (15:38)
--- NOTE | 2020-06-06 16:55 | Pulmonology Progress Note ---
Subjective ROS Limited/Unobtainable: Yes Interval Events: Remains intubated Constitutional: Denies: fever HEENT: Repors: no symptoms Respiratory: Reports: no symptoms Cardiovascular: Reports: no symptoms Gastrointestinal/Abdominal: Reports: no symptoms Genitourinary: Reports: no symptoms Allergies: Coded Allergies: No Known Allergies (Unverified , 05/28/20) All Systems: reviewed and negative except above Objective Last 24 Hour Vital Signs Date Time Temp Pulse Resp B/P (MAP) Pulse Ox O2 Delivery O2 Flow Rate FiO2 06/06/20 16:00 97.0 92 18 128/80 (96) 91 06/06/20 16:00 Mechanical Ventilator 06/06/20 16:00 90 06/06/20 15:30 91 06/06/20 15:00 87 24 114/74 (87) 97 06/06/20 15:00 20 Mechanical Ventilator 90 06/06/20 15:00 20 114/74 Mechanical Ventilator 90 06/06/20 15:00 84 20 114/74 (87) 97 06/06/20 14:00 84 20 112/73 (86) 98 06/06/20 14:00 20 Mechanical Ventilator 100 06/06/20 14:00 19 115/71 Mechanical Ventilator 90 06/06/20 13:01 18 113/70 Mechanical Ventilator 90 06/06/20 13:00 19 Mechanical Ventilator 90 06/06/20 13:00 19 115/71 Mechanical Ventilator 90 06/06/20 13:00 85 19 115/71 (86) 99 06/06/20 12:00 Mechanical Ventilator 06/06/20 12:00 21 Mechanical Ventilator 90 06/06/20 12:00 21 113/70 Mechanical Ventilator 90 06/06/20 12:00 97.8 89 21 113/70 (84) 97 06/06/20 12:00 90 06/06/20 11:30 90 06/06/20 11:22 92 06/06/20 11:00 92 20 112/71 (85) 99 06/06/20 11:00 20 Mechanical Ventilator 100 06/06/20 11:00 20 112/71 Mechanical Ventilator 100 06/06/20 10:04 27 Mechanical Ventilator 100 06/06/20 10:00 91 18 105/66 (79) 100 06/06/20 10:00 18 Mechanical Ventilator 100 06/06/20 10:00 18 105/66 Mechanical Ventilator 100 06/06/20 09:00 90 20 111/67 (82) 100 06/06/20 09:00 20 Mechanical Ventilator 100 06/06/20 09:00 20 111/67 Mechanical Ventilator 100 06/06/20 08:00 Mechanical Ventilator 06/06/20 08:00 24 Mechanical Ventilator 100 06/06/20 08:00 24 128/79 Mechanical Ventilator 100 06/06/20 08:00 100 06/06/20 08:00 98.0 97 24 128/79 (95) 94 06/06/20 07:42 99 06/06/20 07:00 87 20 113/76 (88) 100 06/06/20 07:00 25 Mechanical Ventilator 100 06/06/20 07:00 25 113/76 Mechanical Ventilator 100 06/06/20 06:34 98.4 06/06/20 06:30 88 26 06/06/20 06:04 25 Mechanical Ventilator 26.0 100 06/06/20 06:00 25 125/77 Mechanical Ventilator 100 06/06/20 06:00 25 Mechanical Ventilator 100 06/06/20 06:00 91 22 125/77 (93) 100 06/06/20 05:00 25 149/93 Mechanical Ventilator 100 06/06/20 05:00 25 Mechanical Ventilator 100 06/06/20 05:00 114 29 149/93 (111) 99 06/06/20 04:00 98.4 106 24 155/97 (116) 96 06/06/20 04:00 94 06/06/20 04:00 100 06/06/20 04:00 24 155/97 Mechanical Ventilator 100 06/06/20 04:00 24 Mechanical Ventilator 100 06/06/20 04:00 Mechanical Ventilator 06/06/20 03:43 100 27 100 06/06/20 03:00 26 127/83 Mechanical Ventilator 100 06/06/20 03:00 26 Mechanical Ventilator 100 06/06/20 03:00 86 26 127/83 (98) 100 06/06/20 02:30 84 20 132/89 (103) 100 06/06/20 02:00 84 20 123/81 (95) 100 06/06/20 02:00 20 123/81 Mechanical Ventilator 100 06/06/20 02:00 20 Mechanical Ventilator 100 06/06/20 01:30 83 22 119/82 (94) 100 06/06/20 01:00 22 123/82 Mechanical Ventilator 100 06/06/20 01:00 22 Mechanical Ventilator 100 06/06/20 01:00 85 22 123/82 (96) 100 06/06/20 00:00 97.9 89 20 129/82 (98) 100 06/06/20 00:00 Mechanical Ventilator 06/06/20 00:00 20 129/82 Mechanical Ventilator 100 06/06/20 00:00 20 Non-Rebreather 100 06/06/20 00:00 100 06/06/20 00:00 90 06/05/20 23:38 89 22 100 06/05/20 23:30 89 25 128/85 (99) 100 06/05/20 23:05 98.4 06/05/20 23:00 22 128/85 Mechanical Ventilator 100 06/05/20 23:00 25 Mechanical Ventilator 100 06/05/20 23:00 89 21 133/86 (102) 100 06/05/20 22:35 22 Mechanical Ventilator 26.0 100 06/05/20 22:00 23 121/82 Mechanical Ventilator 100 06/05/20 22:00 23 Mechanical Ventilator 100 06/05/20 22:00 93 22 133/83 (100) 100 06/05/20 21:00 95 24 130/83 (99) 100 06/05/20 21:00 25 130/81 Mechanical Ventilator 100 06/05/20 21:00 25 Mechanical Ventilator 100 06/05/20 20:00 101 06/05/20 20:00 100 06/05/20 20:00 26 140/83 Mechanical Ventilator 100 06/05/20 20:00 25 Mechanical Ventilator 100 06/05/20 20:00 98.4 101 32 144/83 (103) 100 06/05/20 20:00 Mechanical Ventilator 06/05/20 19:00 106 20 100 06/05/20 19:00 98.8 109 18 152/93 (112) 100 06/05/20 19:00 16 152/93 Mechanical Ventilator 100 06/05/20 19:00 16 Mechanical Ventilator 100 06/05/20 18:00 29 133/90 Mechanical Ventilator 100 06/05/20 18:00 29 Mechanical Ventilator 100 06/05/20 18:00 101 29 132/87 (102) 92 06/05/20 17:00 99.2 109 33 151/90 (110) 92 06/05/20 17:00 31 146/86 Mechanical Ventilator 100 06/05/20 17:00 31 Mechanical Ventilator 100 Intake and Output 06/05/20 06/06/20 19:00 07:00 Intake Total 1566.2 ml 1792.5 ml Output Total 1060 ml 880 ml Balance 506.2 ml 912.5 ml Free Water 300 ml IV Total 846.2 ml 772.5 ml Tube Feeding 720 ml 720 ml Output Urine Total 1060 ml 880 ml General Appearance: no acute distress HEENT: normocephalic Respiratory: chest wall non-tender Cardiovascular: normal peripheral pulses Abdomen: normal bowel sounds Laboratory Tests 06/06/20 05:00: White Blood Count 14.2H, Red Blood Count 4.35, Hemoglobin 12.6, Hematocrit 39.8, Mean Corpuscular Volume 91, Mean Corpuscular Hemoglobin 29.0, Mean Corpuscular Hemoglobin Concent 31.8L, Red Cell Distribution Width 14.2, Platelet Count 99L, Mean Platelet Volume 9.9, Neutrophils (%) (Auto) , Lymphocytes (%) (Auto) , Monocytes (%) (Auto) , Eosinophils (%) (Auto) , Basophils (%) (Auto) , Differential Total Cells Counted 100, Neutrophils % (Manual) 89H, Lymphocytes % (Manual) 4L, Monocytes % (Manual) 2, Eosinophils % (Manual) 0, Basophils % (Manual) 0, Band Neutrophils 5, Platelet Estimate DecreasedL, Platelet Morphology Normal, Red Blood Cell Morphology Normal, Sodium Level 142, Potassium Level 4.8, Chloride Level 103, Carbon Dioxide Level 35H, Anion Gap 4L, Blood Urea Nitrogen 32H, Creatinine 0.7, Estimat Glomerular Filtration Rate > 60, Glucose Level 352H, Calcium Level 9.3 06/06/20 08:17: POC Whole Blood Glucose 389H 06/06/20 12:15: POC Whole Blood Glucose 266H 06/06/20 16:03: POC Whole Blood Glucose 189H Current Medications Medications (Trade) Dose Ordered Sig/Zelda Route PRN Reason Start Time Stop Time Status Last Admin Dose Admin Acetaminophen (Tylenol) 650 mg Q4H PRN NG Temp >100.5 05/31/20 21:45 06/30/20 21:44 06/02/20 14:36 Ceftriaxone Sodium 1 gm/ Sodium Chloride 55 ml @ 110 mls/hr DAILY IVPB 05/29/20 09:00 06/11/20 23:59 06/06/20 08:05 Chlorhexidine Gluconate (Inna-Hex 2%) 1 applic DAILY@2000 TOPIC 05/30/20 20:00 08/28/20 19:59 06/05/20 20:01 Dextrose (Dextrose 50%) 25 ml Q30M PRN IV Hypoglycemia 06/05/20 10:45 09/03/20 10:44 Dextrose (Dextrose 50%) 50 ml Q30M PRN IV Hypoglycemia 06/05/20 10:45 09/03/20 10:44 Enoxaparin Sodium (Lovenox) 40 mg DAILY SUBQ 05/30/20 10:00 08/28/20 09:59 06/04/20 09:16 Fentanyl Citrate 250 ml @ 1 mls/hr Q24H IV 06/05/20 12:30 06/07/20 12:29 06/06/20 13:01 Insulin Aspart (NovoLOG) EVERY 4 HOURS SUBQ 06/06/20 09:00 09/03/20 11:59 06/06/20 16:12 Insulin Aspart (NovoLOG) 6 units EVERY 4 HOURS SUBQ 06/06/20 09:00 09/04/20 08:59 06/06/20 16:12 Lorazepam (Ativan 2mg/ml 1ml) 1 mg Q4H PRN IV For Anxiety 05/30/20 20:50 06/06/20 20:49 06/03/20 22:19 Methylprednisolone Sodium Succinate (Solu-MEDROL) 40 mg EVERY 12 HOURS IVP 06/03/20 12:30 09/01/20 12:29 06/06/20 08:04 Midazolam HCl 100 ml @ 0 mls/hr Q24H PRN IV sedation 06/06/20 06:00 06/08/20 05:59 06/06/20 10:04 Pantoprazole (Protonix) 40 mg DAILY IVP 06/03/20 09:00 07/03/20 08:59 06/06/20 08:04 Sodium Chloride 1,000 ml @ 50 mls/hr Q20H IV 06/06/20 08:00 07/06/20 07:59 06/06/20 08:04 Assessment/Plan Assessment/Plan 1. COVID-19 pneumonia -Intubated 05/28/20 - We will continue broad-spectrum antibiotics. - We will continue dexamethasone -Defer use of remdesivir to ID -Continue monitoring SaO2 and keep it >92% -Continue PEEP 16; ; FiO2 100% -> 90% - -will begin OGT feeding - May need pressors -Continue sedation -Need to keep patient completely sedated. 2. Hyponatremia -Per primary MD 3. Elevated inflammatory markers -Continue Loveyvonnex Javier Nava MD Jun 06, 2020 16:55
[2020-06-06] MEDS: Acetaminophen 650mg/20.3ml NG PRN (18:11)
--- NOTE | 2020-06-06 19:00 | NUR ---
NURSE NOTES: Spoke with Dr. Adame via telephone, with orders obtained to change novolog insulin and blood sugar check to every 6 hours from every 4 hours.
--- NOTE | 2020-06-06 19:30 | NUR ---
NURSE HAND-OFF REPORT: Latest Vital Signs: Temperature 97.0 , Pulse 104 , B/P 117 /71 , Respiratory Rate 27 , O2 SAT 93 , Mechanical Ventilator, O2 Flow Rate . Vital Sign Comment: lightly sedated RASS -2 EKG Rhythm: Sinus Tachycardia Rhythm change?: N Latest Meyers Fall Score: 50 Fall Risk: High Risk Safety Measures: Call light Within Reach, Bed Alarm Zone 1, Side Rails Side Rails x2, Bed position Low and Locked. Fall Precautions: Yellow Socks Yellow Gown Door Sign Patient Fall Education Report given to Geri Limon RN.
--- NOTE | 2020-06-06 20:00 | NUR ---
NURSE NOTES: received report from alice rn pt orally intubated -vent with o2 sat 95& no acute resp distress noted tolerating tube feeding no residual on dilan soft west restraint nan complaint reposition and suction sedated with fent drip and versed drip reposition and suction
[2020-06-06] MEDS: Dyna-Hex 2% Top Sol 2oz TOPIC SCH (20:36)
[2020-06-07] VITALS (24 sets, daily range): BP systolic 108–160; BP diastolic 57–103
--- NOTE | 2020-06-07 | NUR ---
NURSE NOTES: bs [id number] insulin coverage given
[2020-06-07] MEDS: Versed 50mg/NS 100ml 100 ML IV PRN ×2 (00:23→14:46)
[2020-06-07] MEDS: NovoLOG Insulin Flexpen SUBQ SCH ×8 (00:35→17:56)
--- NOTE | 2020-06-07 04:00 | NUR ---
NURSE NOTES: complete bed bath
[2020-06-07 05:44] LABS: ANION GAP 1 mmol/L (5-15); BLOOD UREA NITROGEN 27 mg/dL (7-18); CALCIUM 8.8 MG/DL (8.5-10.1); CARBON DIOXIDE 38 MMOL/L (21-32); CHLORIDE 101 MMOL/L (98-107); CREATININE 0.7 MG/DL (0.55-1.30); POTASSIUM 5.3 MMOL/L (3.5-5.1); SODIUM 140 MMOL/L (136-145)
[2020-06-07 05:54] LABS: HEMATOCRIT 37.7 % (37.0-47.0); HEMOGLOBIN 11.7 G/DL (12.0-16.0); MEAN CORPUSCULAR VOLUME 92 FL (80-99); PLATELET COUNT 85 K/UL (150-450); RED BLOOD COUNT 4.08 M/UL (4.20-5.40); RED CELL DISTRIBUTION WIDTH 14.9 % (11.6-14.8); WHITE BLOOD COUNT 11.5 K/UL (4.8-10.8)
--- NOTE | 2020-06-07 06:00 | NUR ---
NURSE NOTES: bs [id number] insulin coverage nela
--- NOTE | 2020-06-07 06:36 | General Progress Note ---
Subjective ROS Limited/Unobtainable: Yes Allergies: Coded Allergies: No Known Allergies (Unverified , 05/28/20) Subjective events noted interval notes reviewed glucose values are very high Item Value Date Time Bedside Blood Glucose 385 mg/dl H 06/07/20 0607 Bedside Blood Glucose 331 mg/dl H 06/07/20 0035 Bedside Blood Glucose 189 mg/dl H 06/06/20 1612 Bedside Blood Glucose 266 mg/dl H 06/06/20 1222 Bedside Blood Glucose 389 mg/dl H 06/06/20 0930 Bedside Blood Glucose 276 mg/dl H 06/06/20 0618 Objective Last 24 Hour Vital Signs Date Time Temp Pulse Resp B/P (MAP) Pulse Ox O2 Delivery O2 Flow Rate FiO2 06/07/20 05:00 28 Mechanical Ventilator 06/07/20 05:00 20 131/67 Mechanical Ventilator 100 06/07/20 04:00 25 Mechanical Ventilator 100 06/07/20 04:00 24 160/103 Mechanical Ventilator 100 06/07/20 03:59 108 22 100 06/07/20 03:00 26 Endotracheal Tube 06/07/20 03:00 20 108/75 Mechanical Ventilator 100 06/07/20 02:00 25 Mechanical Ventilator 100 06/07/20 02:00 23 120/81 Mechanical Ventilator 100 06/07/20 01:00 108 26 149/90 (109) 92 06/07/20 01:00 25 Mechanical Ventilator 100 06/07/20 01:00 22 156/79 Mechanical Ventilator 100 06/07/20 00:23 28 Mechanical Ventilator 100 06/07/20 00:00 Mechanical Ventilator 06/07/20 00:00 103 25 139/85 (103) 96 06/07/20 00:00 105 06/07/20 00:00 25 Mechanical Ventilator 100 06/07/20 00:00 25 126/66 Mechanical Ventilator 100 06/06/20 23:51 113 27 100 06/06/20 23:00 25 Mechanical Ventilator 100 06/06/20 23:00 22 140/50 Mechanical Ventilator 100 06/06/20 23:00 99.5 117 29 160/84 (109) 92 06/06/20 22:00 114 29 144/87 (106) 89 06/06/20 22:00 22 Mechanical Ventilator 100 06/06/20 22:00 22 144/87 Mechanical Ventilator 100 06/06/20 21:00 97.8 99 25 121/78 (92) 96 06/06/20 21:00 26.0 100 06/06/20 21:00 22 Mechanical Ventilator 100 06/06/20 21:00 25 144/87 Mechanical Ventilator 100 06/06/20 20:00 Mechanical Ventilator 06/06/20 20:00 104 26 130/71 (90) 94 06/06/20 20:00 22 Mechanical Ventilator 100 06/06/20 20:00 25 121/76 Non-Rebreather 100 06/06/20 20:00 85 06/06/20 19:00 104 27 117/71 (86) 93 06/06/20 19:00 27 Mechanical Ventilator 100 06/06/20 19:00 27 117/71 Mechanical Ventilator 100 06/06/20 18:37 98 25 100 06/06/20 18:30 100 06/06/20 18:00 27 Mechanical Ventilator 90 06/06/20 18:00 27 141/86 Mechanical Ventilator 90 06/06/20 18:00 95 27 141/86 (104) 91 06/06/20 17:00 94 23 121/65 (83) 100 06/06/20 17:00 23 Mechanical Ventilator 90 06/06/20 17:00 23 121/65 Mechanical Ventilator 90 06/06/20 16:00 97.0 92 18 128/80 (96) 91 06/06/20 16:00 18 Mechanical Ventilator 90 06/06/20 16:00 18 128/80 Mechanical Ventilator 90 06/06/20 16:00 Mechanical Ventilator 06/06/20 16:00 90 06/06/20 15:30 91 06/06/20 15:20 94 22 90 06/06/20 15:00 87 24 114/74 (87) 97 06/06/20 15:00 20 Mechanical Ventilator 90 06/06/20 15:00 20 114/74 Mechanical Ventilator 90 06/06/20 15:00 84 20 114/74 (87) 97 06/06/20 14:00 84 20 112/73 (86) 98 06/06/20 14:00 20 Mechanical Ventilator 100 06/06/20 14:00 19 115/71 Mechanical Ventilator 90 06/06/20 13:01 18 113/70 Mechanical Ventilator 90 06/06/20 13:00 19 Mechanical Ventilator 90 06/06/20 13:00 19 115/71 Mechanical Ventilator 90 06/06/20 13:00 85 19 115/71 (86) 99 06/06/20 12:00 Mechanical Ventilator 06/06/20 12:00 21 Mechanical Ventilator 90 06/06/20 12:00 21 113/70 Mechanical Ventilator 90 06/06/20 12:00 97.8 89 21 113/70 (84) 97 06/06/20 12:00 90 06/06/20 11:30 90 06/06/20 11:22 92 06/06/20 11:15 94 20 90 06/06/20 11:00 92 20 112/71 (85) 99 06/06/20 11:00 20 Mechanical Ventilator 100 06/06/20 11:00 20 112/71 Mechanical Ventilator 100 06/06/20 10:04 27 Mechanical Ventilator 100 06/06/20 10:00 91 18 105/66 (79) 100 06/06/20 10:00 18 Mechanical Ventilator 100 06/06/20 10:00 18 105/66 Mechanical Ventilator 100 06/06/20 09:00 90 20 111/67 (82) 100 06/06/20 09:00 20 Mechanical Ventilator 100 06/06/20 09:00 20 111/67 Mechanical Ventilator 100 06/06/20 08:00 Mechanical Ventilator 06/06/20 08:00 24 Mechanical Ventilator 100 06/06/20 08:00 24 128/79 Mechanical Ventilator 100 06/06/20 08:00 100 06/06/20 08:00 98.0 97 24 128/79 (95) 94 06/06/20 07:42 99 06/06/20 07:15 89 20 100 06/06/20 07:00 87 20 113/76 (88) 100 06/06/20 07:00 25 Mechanical Ventilator 100 06/06/20 07:00 25 113/76 Mechanical Ventilator 100 Intake and Output 06/06/20 06/07/20 19:00 07:00 Intake Total 1528.47 ml 872 ml Output Total 850 ml 650 ml Balance 678.47 ml 222 ml Free Water 50 ml IV Total 808.47 ml 462 ml Tube Feeding 720 ml 360 ml Output Urine Total 850 ml 650 ml Laboratory Tests 06/06/20 08:17: POC Whole Blood Glucose 389H 06/06/20 12:15: POC Whole Blood Glucose 266H 06/06/20 16:03: POC Whole Blood Glucose 189H 06/07/20 00:25: POC Whole Blood Glucose [Pending] 06/07/20 03:30: White Blood Count 11.5H, Red Blood Count 4.08L, Hemoglobin 11.7L, Hematocrit 37.7, Mean Corpuscular Volume 92, Mean Corpuscular Hemoglobin 28.5, Mean Corpuscular Hemoglobin Concent 30.9L, Red Cell Distribution Width 14.9H, Platelet Count 85L, Mean Platelet Volume 9.6, Neutrophils (%) (Auto) , Lymphocytes (%) (Auto) , Monocytes (%) (Auto) , Eosinophils (%) (Auto) , Basophils (%) (Auto) , Neutrophils % (Manual) [Pending], Lymphocytes % (Manual) [Pending], Platelet Estimate [Pending], Platelet Morphology [Pending], Sodium Level 140, Potassium Level 5.3H, Chloride Level 101, Carbon Dioxide Level 38H, Anion Gap 1L, Blood Urea Nitrogen 27H, Creatinine 0.7, Estimat Glomerular Filtration Rate > 60, Glucose Level 379H, Calcium Level 8.8 Height (Feet): 5 Height (Inches): 5.00 Weight (Pounds): 308 Objective Current Medications Medications (Trade) Dose Ordered Sig/Zelda Route PRN Reason Start Time Stop Time Status Last Admin Dose Admin Acetaminophen (Tylenol) 650 mg Q4H PRN NG Temp >100.5 05/31/20 21:45 06/30/20 21:44 06/02/20 14:36 Acetaminophen (Tylenol) 650 mg Q6H PRN NG Mild Pain (Pain Scale 1-3) 06/06/20 18:00 07/06/20 17:59 06/06/20 18:11 Ceftriaxone Sodium 1 gm/ Sodium Chloride 55 ml @ 110 mls/hr DAILY IVPB 05/29/20 09:00 06/11/20 23:59 06/06/20 08:05 Chlorhexidine Gluconate (Inna-Hex 2%) 1 applic DAILY@2000 TOPIC 05/30/20 20:00 08/28/20 19:59 06/06/20 20:36 Dextrose (Dextrose 50%) 25 ml Q30M PRN IV Hypoglycemia 06/05/20 10:45 09/03/20 10:44 Dextrose (Dextrose 50%) 50 ml Q30M PRN IV Hypoglycemia 06/05/20 10:45 09/03/20 10:44 Enoxaparin Sodium (Lovenox) 40 mg DAILY SUBQ 05/30/20 10:00 08/28/20 09:59 06/04/20 09:16 Fentanyl Citrate 250 ml @ 1 mls/hr Q24H IV 06/05/20 12:30 06/07/20 12:29 06/06/20 13:01 Insulin Aspart (NovoLOG) EVERY 6 HOURS SUBQ 06/07/20 00:00 09/03/20 11:59 06/07/20 06:06 Insulin Aspart (NovoLOG) 6 units EVERY 6 HOURS SUBQ 06/07/20 00:00 09/04/20 08:59 06/07/20 06:07 Methylprednisolone Sodium Succinate (Solu-MEDROL) 40 mg EVERY 12 HOURS IVP 06/03/20 12:30 09/01/20 12:29 06/06/20 20:36 Midazolam HCl 100 ml @ 0 mls/hr Q24H PRN IV sedation 06/06/20 06:00 06/08/20 05:59 06/07/20 00:23 Pantoprazole (Protonix) 40 mg DAILY IVP 06/03/20 09:00 07/03/20 08:59 06/06/20 08:04 Sodium Chloride 1,000 ml @ 50 mls/hr Q20H IV 06/06/20 08:00 07/06/20 07:59 06/07/20 03:43 Assessment/Plan Problem List: (1) Diabetes mellitus out of control ICD Codes: E11.65 - Type 2 diabetes mellitus with hyperglycemia SNOMED: 29433324, 225537069 (2) Pneumonia due to COVID-19 virus ICD Codes: U07.1 - COVID-19; J12.82 - Pneumonia due to coronavirus disease 2019 SNOMED: 671490761349517059 (3) Respiratory distress ICD Codes: R06.03 - Acute respiratory distress; J12.82 - Pneumonia due to coronavirus disease 2019 SNOMED: 935655536 Status: unchanged Assessment/Plan: increase Novolog to 12 units every 6 hours continue Novolog sliding scale every 6 hours Huber Adame MD Jun 07, 2020 06:36
--- NOTE | 2020-06-07 07:51 | NUR ---
RD ASSESSMENT & RECOMMENDATIONS SEE CARE ACTIVITY FOR COMPLETE ASSESSMENT DAILY ESTIMATED NEEDS: Needs based on Critical care, obesity 11-14kcal/kg actual body wt (140kg) kcals/kg 5912-9481 total kcals 1.5-2.0g prot/kg IBW (64.5kg) g protein/kg 96-129 g total protein 25-30ml/kg abw (83kg) mL/kg 6354-6602 total fluid mLs NUTRITION DIAGNOSIS: Swallowing difficulty R/T respiratory failure as evidenced by pt orally intubated and sedated, NPO at this time. CURRENT TF: Vital 1.2 goal of 60ml/hr ENTERAL NUTRITION RECOMMENDATIONS: Vital AF 1.2 @ 60ml/hr x 24 hrs to provide 1440ml, 1728kcal, 108g prot, 1168ml free water * As medically appropriate, obtain GI access, initiate critical care and carb controlled TF formula of Vital AF 1.2. * Initiate TF @ 20ml/hr x 6hrs, advance 10ml q 4-6 hrs as tolerated to goal * TF @ goal meeds 100% est kcal/prot needs * HOB over 30 degrees/ water flush per MD TF may be lowered to 55ml/hr for improved BG control while maintaining Kcal and pro needs. ADDITIONAL RECOMMENDATIONS: * Calibrated bedscale wt * Monitor Propofol rate, need for TF adjustment-> now off -> Trend triglyceride: 208 on 05/30 * NISS w/ TF: h/o DM, on solumedrol + D5-> BG elevated * Monitor lytes (Trend K, now 5.3) * Rec bowel regimen
--- NOTE | 2020-06-07 07:54 | NUR ---
NURSE HAND-OFF REPORT: Latest Vital Signs: Temperature 99.0 , Pulse 130 , B/P 143 /79 , Respiratory Rate 32 , O2 SAT 100 , Mechanical Ventilator, O2 Flow Rate . Vital Sign Comment: EKG Rhythm: Sinus Tachycardia Rhythm change?: N MD Notified?: - MD Response: Latest Meyers Fall Score: 50 Fall Risk: High Risk Safety Measures: Call light Within Reach, Bed Alarm Zone 1, Side Rails Side Rails x2, Bed position Low and Locked. Fall Precautions: Yellow Socks Yellow Gown Door Sign Patient Fall Education Report given to alice gracia using sbar.
--- NOTE | 2020-06-07 07:55 | NUR ---
NURSE NOTES: Patient received from Geri Limon RN. Lightly sedated RASS -2. Bilat pupils equal and round 2 mm with sluggish rxn to light; gag reflex intact. 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 Generalized edema noted to extremities. cap refill less than 2 sec. Patient is orally intubated with a 7.5 ETT noted 23 cm at the lip with the following: AC mode rate of 15 TV 500 FiO2 100 % Peep 16. Lung vela noted diminished upon auscultation. Patient has OGT feeding as tolerated. Abdomen is round and soft w/ active bowel sounds to all quadrants. Lennon catheter noted draining yellow urine. Skin is intact. Pt has a LH 22g and LW 18g IVs saline-locked and a LINDA PICC with dry and intact dressing running fentanyl drip at 90 mcg/hr, versed gtt at 4 mg/hr, and NS at 50 cc/hr. 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 Bed in lowest position, alarm on, side rails up x 2, call light within reach. Airborne isolation observed. Will continue to monitor.
[2020-06-07] MEDS: Enoxaparin 40mg Inj SUBQ SCH (09:00)
[2020-06-07] MEDS: Pantoprazole Inj IVP SCH (09:19)
[2020-06-07] MEDS: Solu-MEDROL 40mg Inj IVP SCH (09:19)
[2020-06-07] MEDS: cefTRIAXone 1 GM in NS 55 ML IVPB SCH (09:20)
--- NOTE | 2020-06-07 10:45 | NUR ---
NURSE NOTES: Dr. Nava in the unit. He ordered to decreased PEEP from 16 to 14. Respiratory therapist made aware.
--- NOTE | 2020-06-07 11:40 | Infectious Diseases Prog Note ---
Assessment/Plan Assessment/Plan antibiotics : ceftriaxone A 1. covid 19 pneumonia on 75% Fi O2 with 100 % saturation s/p remdesivir 2. respiratory failure P 1. continue ceftriaxone 2. continue solumedrol taper dose 3. continue isolation Subjective ROS Limited/Unobtainable: Yes Allergies: Coded Allergies: No Known Allergies (Unverified , 05/28/20) Objective Last 24 Hour Vital Signs Date Time Temp Pulse Resp B/P (MAP) Pulse Ox O2 Delivery O2 Flow Rate FiO2 06/07/20 11:00 106 24 115/65 (82) 100 06/07/20 10:30 75 06/07/20 10:00 110 26 111/57 (75) 100 06/07/20 10:00 24 Mechanical Ventilator 100 06/07/20 10:00 24 111/57 Mechanical Ventilator 100 06/07/20 09:00 26 Mechanical Ventilator 100 06/07/20 09:00 26 120/68 Mechanical Ventilator 100 06/07/20 09:00 119 26 120/68 (85) 100 06/07/20 08:33 85 06/07/20 08:00 Mechanical Ventilator 06/07/20 08:00 97.0 116 26 123/59 (80) 100 06/07/20 08:00 100 06/07/20 08:00 26 Mechanical Ventilator 100 06/07/20 08:00 26 123/59 Mechanical Ventilator 100 06/07/20 07:30 125 06/07/20 07:06 128 24 100 06/07/20 07:00 130 32 143/79 (100) 100 06/07/20 07:00 26 Mechanical Ventilator 100 06/07/20 07:00 28 154/80 Mechanical Ventilator 100 06/07/20 06:46 109 06/07/20 06:30 88 26 06/07/20 06:00 111 30 132/63 (86) 100 06/07/20 06:00 26 Mechanical Ventilator 100 06/07/20 06:00 22 131/67 Mechanical Ventilator 100 06/07/20 05:00 114 26 131/67 (88) 100 06/07/20 05:00 28 Mechanical Ventilator 06/07/20 05:00 20 131/67 Mechanical Ventilator 100 06/07/20 04:00 99.0 115 28 160/103 (122) 86 06/07/20 04:00 Mechanical Ventilator 06/07/20 04:00 25 Mechanical Ventilator 100 06/07/20 04:00 24 160/103 Mechanical Ventilator 100 06/07/20 04:00 26.0 100 06/07/20 03:59 108 22 100 06/07/20 03:00 86 23 108/75 (86) 97 06/07/20 03:00 26 Endotracheal Tube 06/07/20 03:00 20 108/75 Mechanical Ventilator 100 06/07/20 02:00 25 Mechanical Ventilator 100 06/07/20 02:00 23 120/81 Mechanical Ventilator 100 06/07/20 02:00 94 23 120/81 (94) 96 06/07/20 01:00 108 26 149/90 (109) 92 06/07/20 01:00 25 Mechanical Ventilator 100 06/07/20 01:00 22 156/79 Mechanical Ventilator 100 06/07/20 00:23 28 Mechanical Ventilator 100 06/07/20 00:00 Mechanical Ventilator 06/07/20 00:00 103 25 139/85 (103) 96 06/07/20 00:00 105 06/07/20 00:00 25 Mechanical Ventilator 100 06/07/20 00:00 25 126/66 Mechanical Ventilator 100 06/06/20 23:51 113 27 100 06/06/20 23:00 25 Mechanical Ventilator 100 06/06/20 23:00 22 140/50 Mechanical Ventilator 100 06/06/20 23:00 99.5 117 29 160/84 (109) 92 06/06/20 22:00 114 29 144/87 (106) 89 06/06/20 22:00 22 Mechanical Ventilator 100 06/06/20 22:00 22 144/87 Mechanical Ventilator 100 06/06/20 21:00 97.8 99 25 121/78 (92) 96 06/06/20 21:00 26.0 100 06/06/20 21:00 22 Mechanical Ventilator 100 06/06/20 21:00 25 144/87 Mechanical Ventilator 100 06/06/20 20:00 Mechanical Ventilator 06/06/20 20:00 104 26 130/71 (90) 94 06/06/20 20:00 22 Mechanical Ventilator 100 06/06/20 20:00 25 121/76 Non-Rebreather 100 06/06/20 20:00 85 06/06/20 19:00 104 27 117/71 (86) 93 06/06/20 19:00 27 Mechanical Ventilator 100 06/06/20 19:00 27 117/71 Mechanical Ventilator 100 06/06/20 18:37 98 25 100 06/06/20 18:30 100 06/06/20 18:00 27 Mechanical Ventilator 90 06/06/20 18:00 27 141/86 Mechanical Ventilator 90 06/06/20 18:00 95 27 141/86 (104) 91 06/06/20 17:00 94 23 121/65 (83) 100 06/06/20 17:00 23 Mechanical Ventilator 90 06/06/20 17:00 23 121/65 Mechanical Ventilator 90 06/06/20 16:00 97.0 92 18 128/80 (96) 91 06/06/20 16:00 18 Mechanical Ventilator 90 06/06/20 16:00 18 128/80 Mechanical Ventilator 90 06/06/20 16:00 Mechanical Ventilator 06/06/20 16:00 90 06/06/20 15:30 91 06/06/20 15:20 94 22 90 06/06/20 15:00 87 24 114/74 (87) 97 06/06/20 15:00 20 Mechanical Ventilator 90 06/06/20 15:00 20 114/74 Mechanical Ventilator 90 06/06/20 15:00 84 20 114/74 (87) 97 06/06/20 14:00 84 20 112/73 (86) 98 06/06/20 14:00 20 Mechanical Ventilator 100 06/06/20 14:00 19 115/71 Mechanical Ventilator 90 06/06/20 13:01 18 113/70 Mechanical Ventilator 90 06/06/20 13:00 19 Mechanical Ventilator 90 06/06/20 13:00 19 115/71 Mechanical Ventilator 90 06/06/20 13:00 85 19 115/71 (86) 99 06/06/20 12:00 Mechanical Ventilator 06/06/20 12:00 21 Mechanical Ventilator 90 06/06/20 12:00 21 113/70 Mechanical Ventilator 90 06/06/20 12:00 97.8 89 21 113/70 (84) 97 06/06/20 12:00 90 Height (Feet): 5 Height (Inches): 5.00 Weight (Pounds): 308 HEENT: other - intubated Laboratory Tests Test 06/06/20 12:15 06/06/20 16:03 06/07/20 00:25 06/07/20 03:30 POC Whole Blood Glucose 266 MG/DL (74-106) H 189 MG/DL (74-106) H Pending White Blood Count 11.5 K/UL (4.8-10.8) H Red Blood Count 4.08 M/UL (4.20-5.40) L Hemoglobin 11.7 G/DL (12.0-16.0) L Hematocrit 37.7 % (37.0-47.0) Mean Corpuscular Volume 92 FL (80-99) Mean Corpuscular Hemoglobin 28.5 PG (27.0-31.0) Mean Corpuscular Hemoglobin Concent 30.9 G/DL (32.0-36.0) L Red Cell Distribution Width 14.9 % (11.6-14.8) H Platelet Count 85 K/UL (150-450) L Mean Platelet Volume 9.6 FL (6.5-10.1) Neutrophils (%) (Auto) % (45.0-75.0) Lymphocytes (%) (Auto) % (20.0-45.0) Monocytes (%) (Auto) % (1.0-10.0) Eosinophils (%) (Auto) % (0.0-3.0) Basophils (%) (Auto) % (0.0-2.0) Differential Total Cells Counted 100 Neutrophils % (Manual) 88 % (45-75) H Lymphocytes % (Manual) 7 % (20-45) L Monocytes % (Manual) 5 % (1-10) Eosinophils % (Manual) 0 % (0-3) Basophils % (Manual) 0 % (0-2) Band Neutrophils 0 % (0-8) Platelet Estimate Decreased L Platelet Morphology Normal Anisocytosis 1+ Sodium Level 140 MMOL/L (136-145) Potassium Level 5.3 MMOL/L (3.5-5.1) H Chloride Level 101 MMOL/L (98-107) Carbon Dioxide Level 38 MMOL/L (21-32) H Anion Gap 1 mmol/L (5-15) L Blood Urea Nitrogen 27 mg/dL (7-18) H Creatinine 0.7 MG/DL (0.55-1.30) Estimat Glomerular Filtration Rate > 60 mL/min (>60) Glucose Level 379 MG/DL (74-106) H Calcium Level 8.8 MG/DL (8.5-10.1) Test 06/07/20 08:25 Arterial Blood pH 7.347 (7.350-7.450) Arterial Blood Partial Pressure CO2 75.9 mmHg (35.0-45.0) *H Arterial Blood Partial Pressure O2 185.0 mmHg (75.0-100.0) H Arterial Blood HCO3 40.7 mmol/L (22.0-26.0) *H Arterial Blood Oxygen Saturation 98.7 % (95-100) Arterial Blood Base Excess 12.1 (-2-2) *H Jeremiah Test Positive Current Medications Medications (Trade) Dose Ordered Sig/Zelda Route PRN Reason Start Time Stop Time Status Last Admin Dose Admin Acetaminophen (Tylenol) 650 mg Q4H PRN NG Temp >100.5 05/31/20 21:45 06/30/20 21:44 06/02/20 14:36 Acetaminophen (Tylenol) 650 mg Q6H PRN NG Mild Pain (Pain Scale 1-3) 06/06/20 18:00 07/06/20 17:59 06/06/20 18:11 Ceftriaxone Sodium 1 gm/ Sodium Chloride 55 ml @ 110 mls/hr DAILY IVPB 05/29/20 09:00 06/11/20 23:59 06/07/20 09:20 Chlorhexidine Gluconate (Inna-Hex 2%) 1 applic DAILY@2000 TOPIC 05/30/20 20:00 08/28/20 19:59 06/06/20 20:36 Dextrose (Dextrose 50%) 25 ml Q30M PRN IV Hypoglycemia 06/05/20 10:45 09/03/20 10:44 Dextrose (Dextrose 50%) 50 ml Q30M PRN IV Hypoglycemia 06/05/20 10:45 09/03/20 10:44 Enoxaparin Sodium (Lovenox) 40 mg DAILY SUBQ 05/30/20 10:00 08/28/20 09:59 06/04/20 09:16 Fentanyl Citrate 250 ml @ 1 mls/hr Q24H IV 06/05/20 12:30 06/07/20 12:29 06/06/20 13:01 Insulin Aspart (NovoLOG) EVERY 6 HOURS SUBQ 06/07/20 00:00 09/03/20 11:59 06/07/20 06:06 Insulin Aspart (NovoLOG) 12 units EVERY 6 HOURS SUBQ 06/07/20 12:00 09/04/20 08:59 Methylprednisolone Sodium Succinate (Solu-MEDROL) 40 mg EVERY 12 HOURS IVP 06/03/20 12:30 09/01/20 12:29 06/07/20 09:19 Midazolam HCl 100 ml @ 0 mls/hr Q24H PRN IV sedation 06/06/20 06:00 06/08/20 05:59 06/07/20 00:23 Pantoprazole (Protonix) 40 mg DAILY IVP 06/03/20 09:00 07/03/20 08:59 06/07/20 09:19 Sodium Chloride 1,000 ml @ 50 mls/hr Q20H IV 06/06/20 08:00 07/06/20 07:59 06/07/20 03:43 Fili Mcelroy MD Jun 07, 2020 11:40
[2020-06-07] MEDS: fentaNYL 2500mcg/NS 250ml 250 ML IV SCH ×2 (12:30→17:13)
--- NOTE | 2020-06-07 12:58 | NUR ---
AbstracterExecutive Admin SI: COVID PNA, ETT/Vent support T-97.0 (ax), HR 100, RR 22, BP 109/70, AC 15, TV 500, PEEP 16, FiO2 75%, O2 sat 100% WBC 11.5, BUN 27 Chest X ray worsening bilateral infiltrates 06-05-20 IS: Versed GTT Fentanyl GTT Solu-Medorl IV q 24h Rocephin IV q 24h Lovenox SQ QD Protonix IVP QD ICU status
--- NOTE | 2020-06-07 13:46 | Pulmonology Progress Note ---
Subjective ROS Limited/Unobtainable: Yes Interval Events: Remains intubated Constitutional: Denies: fever HEENT: Repors: no symptoms Respiratory: Reports: no symptoms Cardiovascular: Reports: no symptoms Gastrointestinal/Abdominal: Reports: no symptoms Genitourinary: Reports: no symptoms Allergies: Coded Allergies: No Known Allergies (Unverified , 05/28/20) All Systems: reviewed and negative except above Objective Last 24 Hour Vital Signs Date Time Temp Pulse Resp B/P (MAP) Pulse Ox O2 Delivery O2 Flow Rate FiO2 06/07/20 13:00 106 25 116/67 (83) 100 06/07/20 12:00 101 22 109/70 (83) 100 06/07/20 12:00 75 06/07/20 12:00 100 06/07/20 12:00 Mechanical Ventilator 06/07/20 11:00 106 24 115/65 (82) 100 06/07/20 10:30 75 06/07/20 10:00 110 26 111/57 (75) 100 06/07/20 10:00 24 Mechanical Ventilator 100 06/07/20 10:00 24 111/57 Mechanical Ventilator 100 06/07/20 09:00 26 Mechanical Ventilator 100 06/07/20 09:00 26 120/68 Mechanical Ventilator 100 06/07/20 09:00 119 26 120/68 (85) 100 06/07/20 08:33 85 06/07/20 08:00 Mechanical Ventilator 06/07/20 08:00 97.0 116 26 123/59 (80) 100 06/07/20 08:00 100 06/07/20 08:00 26 Mechanical Ventilator 100 06/07/20 08:00 26 123/59 Mechanical Ventilator 100 06/07/20 07:30 125 06/07/20 07:06 128 24 100 06/07/20 07:00 130 32 143/79 (100) 100 06/07/20 07:00 26 Mechanical Ventilator 100 06/07/20 07:00 28 154/80 Mechanical Ventilator 100 06/07/20 06:46 109 06/07/20 06:30 88 26 06/07/20 06:00 111 30 132/63 (86) 100 06/07/20 06:00 26 Mechanical Ventilator 100 06/07/20 06:00 22 131/67 Mechanical Ventilator 100 06/07/20 05:00 114 26 131/67 (88) 100 06/07/20 05:00 28 Mechanical Ventilator 06/07/20 05:00 20 131/67 Mechanical Ventilator 100 06/07/20 04:00 99.0 115 28 160/103 (122) 86 06/07/20 04:00 Mechanical Ventilator 06/07/20 04:00 25 Mechanical Ventilator 100 06/07/20 04:00 24 160/103 Mechanical Ventilator 100 06/07/20 04:00 26.0 100 06/07/20 03:59 108 22 100 06/07/20 03:00 86 23 108/75 (86) 97 06/07/20 03:00 26 Endotracheal Tube 06/07/20 03:00 20 108/75 Mechanical Ventilator 100 06/07/20 02:00 25 Mechanical Ventilator 100 06/07/20 02:00 23 120/81 Mechanical Ventilator 100 06/07/20 02:00 94 23 120/81 (94) 96 06/07/20 01:00 108 26 149/90 (109) 92 06/07/20 01:00 25 Mechanical Ventilator 100 06/07/20 01:00 22 156/79 Mechanical Ventilator 100 06/07/20 00:23 28 Mechanical Ventilator 100 06/07/20 00:00 Mechanical Ventilator 06/07/20 00:00 103 25 139/85 (103) 96 06/07/20 00:00 105 06/07/20 00:00 25 Mechanical Ventilator 100 06/07/20 00:00 25 126/66 Mechanical Ventilator 100 06/06/20 23:51 113 27 100 06/06/20 23:00 25 Mechanical Ventilator 100 06/06/20 23:00 22 140/50 Mechanical Ventilator 100 06/06/20 23:00 99.5 117 29 160/84 (109) 92 06/06/20 22:00 114 29 144/87 (106) 89 06/06/20 22:00 22 Mechanical Ventilator 100 06/06/20 22:00 22 144/87 Mechanical Ventilator 100 06/06/20 21:00 97.8 99 25 121/78 (92) 96 06/06/20 21:00 26.0 100 06/06/20 21:00 22 Mechanical Ventilator 100 06/06/20 21:00 25 144/87 Mechanical Ventilator 100 06/06/20 20:00 Mechanical Ventilator 06/06/20 20:00 104 26 130/71 (90) 94 1/14/21 20:00 22 Mechanical Ventilator 100 06/06/20 20:00 25 121/76 Non-Rebreather 100 06/06/20 20:00 85 06/06/20 19:00 104 27 117/71 (86) 93 06/06/20 19:00 27 Mechanical Ventilator 100 06/06/20 19:00 27 117/71 Mechanical Ventilator 100 06/06/20 18:37 98 25 100 06/06/20 18:30 100 06/06/20 18:00 27 Mechanical Ventilator 90 06/06/20 18:00 27 141/86 Mechanical Ventilator 90 06/06/20 18:00 95 27 141/86 (104) 91 06/06/20 17:00 94 23 121/65 (83) 100 06/06/20 17:00 23 Mechanical Ventilator 90 06/06/20 17:00 23 121/65 Mechanical Ventilator 90 06/06/20 16:00 97.0 92 18 128/80 (96) 91 06/06/20 16:00 18 Mechanical Ventilator 90 06/06/20 16:00 18 128/80 Mechanical Ventilator 90 06/06/20 16:00 Mechanical Ventilator 06/06/20 16:00 90 06/06/20 15:30 91 06/06/20 15:20 94 22 90 06/06/20 15:00 87 24 114/74 (87) 97 06/06/20 15:00 20 Mechanical Ventilator 90 06/06/20 15:00 20 114/74 Mechanical Ventilator 90 06/06/20 15:00 84 20 114/74 (87) 97 06/06/20 14:00 84 20 112/73 (86) 98 06/06/20 14:00 20 Mechanical Ventilator 100 06/06/20 14:00 19 115/71 Mechanical Ventilator 90 Intake and Output 06/06/20 06/07/20 19:00 07:00 Intake Total 1528.47 ml 1266 ml Output Total 850 ml 1060 ml Balance 678.47 ml 206 ml Free Water 50 ml IV Total 808.47 ml 496 ml Tube Feeding 720 ml 720 ml Output Urine Total 850 ml 1060 ml General Appearance: no acute distress HEENT: normocephalic Respiratory: chest wall non-tender Cardiovascular: normal peripheral pulses Abdomen: normal bowel sounds Laboratory Tests 06/06/20 16:03: POC Whole Blood Glucose 189H 06/07/20 00:25: POC Whole Blood Glucose [Pending] 06/07/20 03:30: White Blood Count 11.5H, Red Blood Count 4.08L, Hemoglobin 11.7L, Hematocrit 37.7, Mean Corpuscular Volume 92, Mean Corpuscular Hemoglobin 28.5, Mean Corpuscular Hemoglobin Concent 30.9L, Red Cell Distribution Width 14.9H, Platelet Count 85L, Mean Platelet Volume 9.6, Neutrophils (%) (Auto) , Lymphocytes (%) (Auto) , Monocytes (%) (Auto) , Eosinophils (%) (Auto) , Basophils (%) (Auto) , Differential Total Cells Counted 100, Neutrophils % (Manu al) 88H, Lymphocytes % (Manual) 7L, Monocytes % (Manual) 5, Eosinophils % (Manual) 0, Basophils % (Manual) 0, Band Neutrophils 0, Platelet Estimate DecreasedL, Platelet Morphology Normal, Anisocytosis 1+, Sodium Level 140, Potassium Level 5.3H, Chloride Level 101, Carbon Dioxide Level 38H, Anion Gap 1L , Blood Urea Nitrogen 27H, Creatinine 0.7, Estimat Glomerular Filtration Rate > 60, Glucose Level 379H, Calcium Level 8.8 06/07/20 08:25: Arterial Blood pH 7.347L, Arterial Blood Partial Pressure CO2 75.9*H, Arterial Blood Partial Pressure O2 185.0H, Arterial Blood HCO3 40.7*H, Arterial Blood Oxygen Saturation 98.7, Arterial Blood Base Excess 12.1*H, Jeremiah Test Positive Current Medications Medications (Trade) Dose Ordered Sig/Zelda Route PRN Reason Start Time Stop Time Status Last Admin Dose Admin Acetaminophen (Tylenol) 650 mg Q4H PRN NG Temp >100.5 05/31/20 21:45 06/30/20 21:44 06/02/20 14:36 Acetaminophen (Tylenol) 650 mg Q6H PRN NG Mild Pain (Pain Scale 1-3) 06/06/20 18:00 07/06/20 17:59 06/06/20 18:11 Ceftriaxone Sodium 1 gm/ Sodium Chloride 55 ml @ 110 mls/hr DAILY IVPB 05/29/20 09:00 06/11/20 23:59 06/07/20 09:20 Chlorhexidine Gluconate (Inna-Hex 2%) 1 applic DAILY@1999 TOPIC 05/30/20 20:00 08/28/20 19:59 06/06/20 20:36 Dextrose (Dextrose 50%) 25 ml Q30M PRN IV Hypoglycemia 06/05/20 10:45 09/03/20 10:44 Dextrose (Dextrose 50%) 50 ml Q30M PRN IV Hypoglycemia 06/05/20 10:45 09/03/20 10:44 Enoxaparin Sodium (Lovenox) 40 mg DAILY SUBQ 05/30/20 10:00 08/28/20 09:59 06/04/20 09:16 Fentanyl Citrate 250 ml @ 1 mls/hr Q24H IV 06/05/20 12:30 06/07/20 17:00 06/06/20 13:01 Fentanyl Citrate 250 ml @ 1 mls/hr Q24H IV 06/07/20 17:01 06/09/20 17:00 Insulin Aspart (NovoLOG) EVERY 6 HOURS SUBQ 06/07/20 00:00 09/03/20 11:59 06/07/20 12:18 Insulin Aspart (NovoLOG) 12 units EVERY 6 HOURS SUBQ 06/07/20 12:00 09/04/20 08:59 06/07/20 12:19 Methylprednisolone Sodium Succinate (Solu-MEDROL) 40 mg DAILY IVP 06/08/20 09:00 09/06/20 08:59 Midazolam HCl 100 ml @ 0 mls/hr Q24H PRN IV sedation 06/06/20 06:00 06/08/20 05:59 06/07/20 00:23 Pantoprazole (Protonix) 40 mg DAILY IVP 06/03/20 09:00 07/03/20 08:59 06/07/20 09:19 Polyethylene Glycol (Miralax) 17 gm BEDTIME GT 06/07/20 21:00 07/07/20 20:59 Sodium Chloride 1,000 ml @ 50 mls/hr Q20H IV 06/06/20 08:00 07/06/20 07:59 06/07/20 03:43 Assessment/Plan Assessment/Plan 1. COVID-19 pneumonia -Intubated 05/28/20 - We will continue broad-spectrum antibiotics. - We will continue dexamethasone -Defer use of remdesivir to ID -Continue monitoring SaO2 and keep it >92% -Continue PEEP 16; ; FiO2 100% -> 90%; will attempt to decrease PEEP to 12; peak airway pressure approx 43 today - -will begin OGT feeding - May need pressors -Continue sedation -Need to keep patient completely sedated. 2. Hyponatremia -Per primary MD 3. Elevated inflammatory markers -Continue Javier Gonzalez MD Jun 07, 2020 13:46
--- NOTE | 2020-06-07 14:40 | NUR ---
NURSE NOTES: Informed Dr. Kendrick (covering for Dr. Del Cid), regarding today's potassium level of 5.3, no new order at this time. Will continue to monitor.
--- NOTE | 2020-06-07 16:00 | NUR ---
NURSE NOTES: No bowel movement noted at this time.
--- NOTE | 2020-06-07 19:35 | NUR ---
NURSE HAND-OFF REPORT: Latest Vital Signs: Temperature 97.0 , Pulse 98 , B/P 118 /68 , Respiratory Rate 23 , O2 SAT 95 , Mechanical Ventilator, O2 Flow Rate . Vital Sign Comment: lightly sedated RASS -2 EKG Rhythm: Sinus Rhythm Rhythm change?: N Latest Meyers Fall Score: 50 Fall Risk: High Risk Safety Measures: Call light Within Reach, Bed Alarm Zone 1, Side Rails Side Rails x2, Bed position Low and Locked. Fall Precautions: Yellow Socks Yellow Gown Door Sign Patient Fall Education Report given to Sophy Pulido RN.
--- NOTE | 2020-06-07 19:50 | NUR ---
NURSE NOTES: Report received from RAKEL Moran. Patient is AC X 0, slightly sedated. campus monitor is in place, shows sinus rhythm. Patient is intubated, ET tube size 7.5, 23 cm on the lip, AC mode 15, TV 500, Fio2 100% and Peep of 14. With OGT, on Vital AF @ 60 cc/hour. With marrero cather in place, drained via gravity. Accu check every 6 hours. With PICC line on right upper arm, running Fentanyl drip 90 mcg @ 9ml/hour, Versed 4mg @ 8cc/hour and NS @ 50cc/hour. Patients is on Covid isolation,, Addendum: 06/07/20 at 1957 by Yodit Maldonado RN Airborne precaution maintained and observed. Safety measures are in place, bed in lowest and locked position, will continue plan of care.
--- NOTE | 2020-06-07 20:16 | General Progress Note ---
Subjective ROS Limited/Unobtainable: Yes Allergies: Coded Allergies: No Known Allergies (Unverified , 05/28/20) Objective Last 24 Hour Vital Signs Date Time Temp Pulse Resp B/P (MAP) Pulse Ox O2 Delivery O2 Flow Rate FiO2 06/07/20 19:46 102 26 65 06/07/20 19:13 23 118/68 Mechanical Ventilator 65 06/07/20 19:00 98 23 118/68 (85) 95 06/07/20 19:00 23 Mechanical Ventilator 65 06/07/20 18:13 24 119/72 Mechanical Ventilator 65 06/07/20 18:00 99 24 119/72 (88) 97 06/07/20 18:00 24 Mechanical Ventilator 65 06/07/20 17:13 25 121/60 Mechanical Ventilator 65 06/07/20 17:00 26 Mechanical Ventilator 65 06/07/20 17:00 102 26 121/60 (80) 96 06/07/20 16:45 65 06/07/20 16:45 65 06/07/20 16:00 75 06/07/20 16:00 24 Mechanical Ventilator 75 06/07/20 16:00 24 112/97 Mechanical Ventilator 65 06/07/20 16:00 107 24 112/97 (102) 98 06/07/20 16:00 Mechanical Ventilator 06/07/20 16:00 106 06/07/20 15:15 104 25 75 06/07/20 15:00 99 23 115/62 (79) 98 06/07/20 15:00 23 Mechanical Ventilator 75 06/07/20 15:00 23 115/62 Mechanical Ventilator 75 06/07/20 14:46 20 Mechanical Ventilator 75 06/07/20 14:00 24 113/59 Mechanical Ventilator 75 06/07/20 14:00 101 24 113/59 (77) 100 06/07/20 13:00 106 25 116/67 (83) 100 06/07/20 13:00 25 116/67 Mechanical Ventilator 75 06/07/20 12:00 101 22 109/70 (83) 100 06/07/20 12:00 75 06/07/20 12:00 100 06/07/20 12:00 22 Mechanical Ventilator 75 06/07/20 12:00 22 109/70 Mechanical Ventilator 75 06/07/20 12:00 Mechanical Ventilator 06/07/20 11:00 24 Mechanical Ventilator 75 06/07/20 11:00 24 115/65 Mechanical Ventilator 75 06/07/20 11:00 106 24 115/65 (82) 100 06/07/20 10:45 75 06/07/20 10:45 117 21 75 06/07/20 10:30 75 06/07/20 10:00 110 26 111/57 (75) 100 06/07/20 10:00 24 Mechanical Ventilator 85 06/07/20 10:00 24 111/57 Mechanical Ventilator 85 06/07/20 09:00 26 Mechanical Ventilator 85 06/07/20 09:00 26 120/68 Mechanical Ventilator 85 06/07/20 09:00 119 26 120/68 (85) 100 06/07/20 08:33 85 06/07/20 08:00 Mechanical Ventilator 06/07/20 08:00 97.0 116 26 123/59 (80) 100 06/07/20 08:00 100 06/07/20 08:00 26 Mechanical Ventilator 100 06/07/20 08:00 26 123/59 Mechanical Ventilator 100 06/07/20 07:30 125 06/07/20 07:06 128 24 100 06/07/20 07:00 130 32 143/79 (100) 100 06/07/20 07:00 26 Mechanical Ventilator 100 06/07/20 07:00 28 154/80 Mechanical Ventilator 100 06/07/20 06:46 109 06/07/20 06:30 88 26 06/07/20 06:00 111 30 132/63 (86) 100 06/07/20 06:00 26 Mechanical Ventilator 100 06/07/20 06:00 22 131/67 Mechanical Ventilator 100 06/07/20 05:00 114 26 131/67 (88) 100 06/07/20 05:00 28 Mechanical Ventilator 06/07/20 05:00 20 131/67 Mechanical Ventilator 100 06/07/20 04:00 99.0 115 28 160/103 (122) 86 06/07/20 04:00 Mechanical Ventilator 06/07/20 04:00 25 Mechanical Ventilator 100 06/07/20 04:00 24 160/103 Mechanical Ventilator 100 06/07/20 04:00 26.0 100 06/07/20 03:59 108 22 100 06/07/20 03:00 86 23 108/75 (86) 97 06/07/20 03:00 26 Endotracheal Tube 06/07/20 03:00 20 108/75 Mechanical Ventilator 100 06/07/20 02:00 25 Mechanical Ventilator 100 06/07/20 02:00 23 120/81 Mechanical Ventilator 100 06/07/20 02:00 94 23 120/81 (94) 96 06/07/20 01:00 108 26 149/90 (109) 92 06/07/20 01:00 25 Mechanical Ventilator 100 06/07/20 01:00 22 156/79 Mechanical Ventilator 100 06/07/20 00:23 28 Mechanical Ventilator 100 06/07/20 00:00 Mechanical Ventilator 06/07/20 00:00 103 25 139/85 (103) 96 06/07/20 00:00 105 06/07/20 00:00 25 Mechanical Ventilator 100 06/07/20 00:00 25 126/66 Mechanical Ventilator 100 06/06/20 23:51 113 27 100 06/06/20 23:00 25 Mechanical Ventilator 100 06/06/20 23:00 22 140/50 Mechanical Ventilator 100 06/06/20 23:00 99.5 117 29 160/84 (109) 92 06/06/20 22:00 114 29 144/87 (106) 89 06/06/20 22:00 22 Mechanical Ventilator 100 06/06/20 22:00 22 144/87 Mechanical Ventilator 100 06/06/20 21:00 97.8 99 25 121/78 (92) 96 06/06/20 21:00 26.0 100 06/06/20 21:00 22 Mechanical Ventilator 100 06/06/20 21:00 25 144/87 Mechanical Ventilator 100 Intake and Output 06/06/20 06/07/20 19:00 07:00 Intake Total 1528.47 ml 1316 ml Output Total 850 ml 1060 ml Balance 678.47 ml 256 ml Free Water 50 ml IV Total 808.47 ml 546 ml Tube Feeding 720 ml 720 ml Output Urine Total 850 ml 1060 ml Laboratory Tests 06/07/20 00:25: POC Whole Blood Glucose [Pending] 06/07/20 03:30: White Blood Count 11.5H, Red Blood Count 4.08L, Hemoglobin 11.7L, Hematocrit 37.7, Mean Corpuscular Volume 92, Mean Corpuscular Hemoglobin 28.5, Mean Corpuscular Hemoglobin Concent 30.9L, Red Cell Distribution Width 14.9H, Platelet Count 85L, Mean Platelet Volume 9.6, Neutrophils (%) (Auto) , Lymphocytes (%) (Auto) , Monocytes (%) (Auto) , Eosinophils (%) (Auto) , Basophils (%) (Auto) , Differential Total Cells Counted 100, Neutrophils % (Manual) 88H, Lymphocytes % (Manual) 7L, Monocytes % (Manual) 5, Eosinophils % (Manual) 0, Basophils % (Manual) 0, Band Neutrophils 0, Platelet Estimate Dec reasedL, Platelet Morphology Normal, Anisocytosis 1+, Sodium Level 140, Potassium Level 5.3H, Chloride Level 101, Carbon Dioxide Level 38H, Anion Gap 1L , Blood Urea Nitrogen 27H, Creatinine 0.7, Estimat Glomerular Filtration Rate > 60, Glucose Level 379H, Calcium Level 8.8 06/07/20 08:25: Arterial Blood pH 7.347L, Arterial Blood Partial Pressure CO2 75.9*H, Arterial Blood Partial Pressure O2 185.0H, Arterial Blood HCO3 40.7*H, Arterial Blood Oxygen Saturation 98.7, Arterial Blood Base Excess 12.1*H, Jeremiah Test Positive Height (Feet): 5 Height (Inches): 5.00 Weight (Pounds): 308 Assessment/Plan Problem List: (1) Hypoxia ICD Codes: R09.02 - Hypoxemia SNOMED: 644125743 (2) Respiratory failure ICD Codes: J96.90 - Respiratory failure, unspecified, unspecified whether with hypoxia or hypercapnia SNOMED: 224831391 (3) Respiratory distress ICD Codes: R06.03 - Acute respiratory distress; J12.82 - Pneumonia due to coronavirus disease 2019 SNOMED: 310035161 (4) Pneumonia due to COVID-19 virus ICD Codes: U07.1 - COVID-19; J12.82 - Pneumonia due to coronavirus disease 2019 SNOMED: 306568031537272996 (5) Diabetes mellitus out of control ICD Codes: E11.65 - Type 2 diabetes mellitus with hyperglycemia SNOMED: 28603787, 070848402 Status: unchanged Assessment/Plan: niddm covid + resp insuff high oxygen afebrile sepsis pna Jamilah Kendrick MD Jun 07, 2020 20:15
[2020-06-07] MEDS: Dyna-Hex 2% Top Sol 2oz TOPIC SCH (20:17)
[2020-06-07] MEDS: Docusate 100mg/10ml Liq GT SCH (20:18)
[2020-06-07] MEDS: Miralax 17gm pkt GT SCH (20:18)
--- NOTE | 2020-06-07 22:05 | NUR ---
NURSE NOTES: Patient is calm, sleeping and no episode of pulling out any tubings. Will discontinue the restraints and will closely monitor.
[2020-06-08] VITALS (24 sets, daily range): BP systolic 106–162; BP diastolic 58–91
[2020-06-08] MEDS: NovoLOG Insulin Flexpen SUBQ SCH ×10 (00:30→23:33)
--- NOTE | 2020-06-08 00:50 | NUR ---
NURSE NOTES: Bed bath done, reposition on her back, oral care provided. No desaturation nor hypotension noted.
--- NOTE | 2020-06-08 01:31 | NUR ---
NURSE NOTES: Cleansed and changed PICC line dressing. No hematoma nor active bleeding noted on the area.
--- NOTE | 2020-06-08 02:00 | NUR ---
NURSE NOTES: Patient was restless and noted her HR goes up, place bilateral soft wrist restraints. Assessment will be done every 2 hours.
--- NOTE | 2020-06-08 03:30 | NUR ---
NURSE NOTES: Noted that patient is much more restless, will increase Versed to 3mg, and re-assessment will be done after 15 minutes.
--- NOTE | 2020-06-08 03:45 | NUR ---
NURSE NOTES: Patient is still restless, will increase Versed to 4mg. Will re-assess after 15 minutes.
--- NOTE | 2020-06-08 04:00 | NUR ---
NURSE NOTES: At this time, patient is -2 RASS, will maintained Versed to 4mg, 8cc/hour.
[2020-06-08] MEDS: Acetaminophen 650mg/20.3ml NG PRN (04:35)
[2020-06-08 05:05] LABS: HEMATOCRIT 35.9 % (37.0-47.0); HEMOGLOBIN 11.3 G/DL (12.0-16.0); MEAN CORPUSCULAR VOLUME 92 FL (80-99); PLATELET COUNT 103 K/UL (150-450); RED CELL DISTRIBUTION WIDTH 14.7 % (11.6-14.8); WHITE BLOOD COUNT 14.1 K/UL (4.8-10.8)
[2020-06-08] MEDS: Versed 50mg/NS 100ml 100 ML IV PRN ×3 (05:08→06:25)
[2020-06-08 05:57] LABS: ALANINE AMINOTRANSFERASE 62 U/L (12-78); ALBUMIN/GLOBULIN RATIO 0.5 (1.0-2.7); ALKALINE PHOSPHATASE 76 U/L (46-116); ANION GAP 0 mmol/L (5-15); ASPARTATE AMINO TRANSFERASE 48 U/L (15-37); BILIRUBIN,TOTAL 0.9 MG/DL (0.2-1.0); BLOOD UREA NITROGEN 28 mg/dL (7-18); CALCIUM 8.4 MG/DL (8.5-10.1); CARBON DIOXIDE 39 MMOL/L (21-32); CHLORIDE 103 MMOL/L (98-107); CREATININE 0.7 MG/DL (0.55-1.30); POTASSIUM 4.4 MMOL/L (3.5-5.1); SODIUM 142 MMOL/L (136-145)
--- NOTE | 2020-06-08 06:00 | NUR ---
NURSE NOTES: Bed bath given tolerated well.
--- NOTE | 2020-06-08 07:00 | NUR ---
RESPIRATORY NOTE: PT received on ACVC: 15, 500, 65%, +14. Alarms are on and audible. Vent circuit is secure and out of the way. Airway is secure and patent. Bilateral soft restrains securely in place. No s/s of respiratory distress noted at this time. Will continue to closely monitor.
--- NOTE | 2020-06-08 07:15 | NUR ---
NURSE NOTES: Received pt from RAKEL mckeon. Pt intubated and sedated. RASS -2. Pt withdraws all ext. Restraint in place for impulsive behavior. No sign of distress. VS stable at this time. Pupils 3+ sluggish, equal. Pt tolerating vent setting. Peripheral pulses equal and present. OGT in place,placement verified, no residual noted. Lennon in place, hematuria noted. Will ensure MD aware. All IV lines patent and asymptomatic. Pt repositioned and oral care done at this time.
[2020-06-08] MEDS: Pantoprazole Inj IVP SCH (08:59)
[2020-06-08] MEDS: Docusate 100mg/10ml Liq GT SCH ×2 (08:59→21:03)
[2020-06-08] MEDS: cefTRIAXone 1 GM in NS 55 ML IVPB SCH (08:59)
[2020-06-08] MEDS: Solu-MEDROL 40mg Inj IVP SCH (09:00)
[2020-06-08] MEDS: Enoxaparin 40mg Inj SUBQ SCH (09:08)
--- NOTE | 2020-06-08 11:43 | General Progress Note ---
Subjective ROS Limited/Unobtainable: Yes Allergies: Coded Allergies: No Known Allergies (Unverified , 05/28/20) Subjective events noted interval notes reviewed glucose values are still elevated Item Value Date Time Bedside Blood Glucose 255 mg/dl H 06/08/20 0600 Bedside Blood Glucose 245 mg/dl H 06/08/20 0032 Bedside Blood Glucose 242 mg/dl H 06/07/20 1756 Bedside Blood Glucose 283 mg/dl H 06/07/20 1219 Objective Last 24 Hour Vital Signs Date Time Temp Pulse Resp B/P (MAP) Pulse Ox O2 Delivery O2 Flow Rate FiO2 06/08/20 08:00 65 06/08/20 07:13 24 118/65 Mechanical Ventilator 65 06/08/20 07:00 113 24 118/65 (82) 97 06/08/20 06:55 97.3 06/08/20 06:30 117 24 06/08/20 06:25 26 Mechanical Ventilator 26.0 65 06/08/20 06:13 26 118/72 Mechanical Ventilator 65 06/08/20 06:00 25 Mechanical Ventilator 65 06/08/20 06:00 97.3 130 26 118/72 (87) 100 06/08/20 05:13 28 121/79 Mechanical Ventilator 65 06/08/20 05:08 28 Mechanical Ventilator 26.0 65 06/08/20 05:07 28 Mechanical Ventilator 65 06/08/20 05:05 98.4 06/08/20 05:00 28 Mechanical Ventilator 65 06/08/20 05:00 136 28 121/79 (93) 99 06/08/20 04:13 26 112/74 Mechanical Ventilator 65 06/08/20 04:00 128 06/08/20 04:00 127 26 112/74 (87) 100 06/08/20 04:00 65 06/08/20 04:00 Mechanical Ventilator 06/08/20 04:00 25 Mechanical Ventilator 65 06/08/20 03:45 40 Mechanical Ventilator 65 06/08/20 03:30 38 Mechanical Ventilator 65 06/08/20 03:13 27 112/74 Mechanical Ventilator 65 06/08/20 03:00 25 Mechanical Ventilator 65 06/08/20 03:00 118 26 118/74 (89) 100 06/08/20 02:13 25 120/79 Mechanical Ventilator 25 06/08/20 02:00 115 28 120/79 (93) 98 06/08/20 02:00 25 Mechanical Ventilator 65 06/08/20 01:51 114 24 65 06/08/20 01:13 25 106/58 Mechanical Ventilator 65 06/08/20 01:00 25 Mechanical Ventilator 65 06/08/20 01:00 107 24 106/58 (74) 100 06/08/20 00:13 26 120/69 Mechanical Ventilator 65 06/08/20 00:00 65 06/08/20 00:00 109 06/08/20 00:00 98.4 106 26 125/69 (87) 94 06/08/20 00:00 25 Mechanical Ventilator 100 06/08/20 00:00 Mechanical Ventilator 06/07/20 23:45 25 Mechanical Ventilator 65 06/07/20 23:30 25 Mechanical Ventilator 65 06/07/20 23:15 25 Mechanical Ventilator 65 06/07/20 23:13 26 125/69 Mechanical Ventilator 65 06/07/20 23:00 25 Mechanical Ventilator 100 06/07/20 23:00 103 25 112/69 (83) 95 06/07/20 22:13 26 110/67 Mechanical Ventilator 65 06/07/20 22:00 26 Mechanical Ventilator 100 06/07/20 22:00 104 25 110/67 (81) 94 06/07/20 21:13 27 122/69 Mechanical Ventilator 65 06/07/20 21:00 26 Mechanical Ventilator 100 06/07/20 21:00 107 27 122/69 (86) 94 06/07/20 20:13 26 113/64 Mechanical Ventilator 65 06/07/20 20:00 97.6 104 26 113/64 (80) 95 06/07/20 20:00 26 Mechanical Ventilator 100 06/07/20 20:00 107 06/07/20 20:00 Mechanical Ventilator 06/07/20 19:46 102 26 65 06/07/20 19:13 23 118/68 Mechanical Ventilator 65 06/07/20 19:00 98 23 118/68 (85) 95 06/07/20 19:00 23 Mechanical Ventilator 65 06/07/20 18:13 24 119/72 Mechanical Ventilator 65 06/07/20 18:00 99 24 119/72 (88) 97 06/07/20 18:00 24 Mechanical Ventilator 65 06/07/20 17:13 25 121/60 Mechanical Ventilator 65 06/07/20 17:00 26 Mechanical Ventilator 65 06/07/20 17:00 102 26 121/60 (80) 96 06/07/20 16:45 65 06/07/20 16:45 65 06/07/20 16:00 75 06/07/20 16:00 24 Mechanical Ventilator 75 06/07/20 16:00 24 112/97 Mechanical Ventilator 65 06/07/20 16:00 107 24 112/97 (102) 98 06/07/20 16:00 Mechanical Ventilator 06/07/20 16:00 106 06/07/20 15:15 104 25 75 06/07/20 15:00 99 23 115/62 (79) 98 06/07/20 15:00 23 Mechanical Ventilator 75 06/07/20 15:00 23 115/62 Mechanical Ventilator 75 06/07/20 14:46 20 Mechanical Ventilator 75 06/07/20 14:00 24 113/59 Mechanical Ventilator 75 06/07/20 14:00 101 24 113/59 (77) 100 06/07/20 13:00 106 25 116/67 (83) 100 06/07/20 13:00 25 116/67 Mechanical Ventilator 75 06/07/20 12:00 101 22 109/70 (83) 100 06/07/20 12:00 75 06/07/20 12:00 100 06/07/20 12:00 22 Mechanical Ventilator 75 06/07/20 12:00 22 109/70 Mechanical Ventilator 75 06/07/20 12:00 Mechanical Ventilator Intake and Output 06/07/20 06/08/20 19:00 07:00 Intake Total 1549.87 ml 1629.13 ml Output Total 760 ml 660 ml Balance 789.87 ml 969.13 ml Free Water 100 ml IV Total 829.87 ml 749.13 ml Tube Feeding 720 ml 720 ml Other 60 ml Output Urine Total 760 ml 660 ml Laboratory Tests 06/08/20 03:15: White Blood Count 14.1H, Red Blood Count 3.90L, Hemoglobin 11.3L, Hematocrit 35.9L, Mean Corpuscular Volume 92, Mean Corpuscular Hemoglobin 29.0, Mean Corpuscular Hemoglobin Concent 31.5L, Red Cell Distribution Width 14.7, Platelet Count 103L, Mean Platelet Volume 9.8, Neutrophils (%) (Auto) , Lymphocytes (%) (Auto) , Monocytes (%) (Auto) , Eosinophils (%) (Auto) , Basophils (%) (Auto) , Differential Total Cells Counted 100, Neutrophils % (Manual) 84H, Lymphocytes % (Manual) 10L, Monocytes % (Manual) 5, Eosinophils % (Manual) 1, Basophils % (Manual) 0, Band Neutrophils 0, Platelet Estimate DecreasedL, Platelet Morphology Normal, Anisocytosis 1+, Sodium Level 142, Potassium Level 4.4, Chloride Level 103, Carbon Dioxide Level 39H, Anion Gap 0L, Blood Urea Nitrogen 28H, Creatinine 0.7, Estimat Glomerular Filtration Rate > 60, Glucose Level 162#H, Calcium Level 8.4L, Total Bilirubin 0.9, Aspartate Amino Transf (AST/SGOT) 48H, Alanine Aminotransferase (ALT/SGPT) 62, Alkaline Phosphatase 76, Total Protein 6.3L, Albumin 2.0L, Globulin 4.3, Albumin/Globulin Ratio 0.5L 06/08/20 05:19: POC Whole Blood Glucose [Pending] 06/08/20 10:00: Arterial Blood pH 7.409, Arterial Blood Partial Pressure CO2 62.6*H, Arterial Blood Partial Pressure O2 59.0L, Arterial Blood HCO3 38.7H, Arterial Blood Oxygen Saturation 90.2L, Arterial Blood Base Excess 11.8*H, Jeremiah Test Positive Height (Feet): 5 Height (Inches): 5.00 Weight (Pounds): 308 Objective Current Medications Medications (Trade) Dose Ordered Sig/Zelda Route PRN Reason Start Time Stop Time Status Last Admin Dose Admin Acetaminophen (Tylenol) 650 mg Q4H PRN NG Temp >100.5 05/31/20 21:45 06/30/20 21:44 06/02/20 14:36 Acetaminophen (Tylenol) 650 mg Q6H PRN NG Mild Pain (Pain Scale 1-3) 06/06/20 18:00 07/06/20 17:59 06/08/20 04:35 Ceftriaxone Sodium 1 gm/ Sodium Chloride 55 ml @ 110 mls/hr DAILY IVPB 05/29/20 09:00 06/11/20 23:59 06/08/20 08:59 Chlorhexidine Gluconate (Inna-Hex 2%) 1 applic DAILY@2000 TOPIC 05/30/20 20:00 08/28/20 19:59 06/07/20 20:17 Dextrose (Dextrose 50%) 25 ml Q30M PRN IV Hypoglycemia 06/05/20 10:45 09/03/20 10:44 Dextrose (Dextrose 50%) 50 ml Q30M PRN IV Hypoglycemia 06/05/20 10:45 09/03/20 10:44 Docusate Sodium (Colace) 100 mg Q12HR GT 06/07/20 21:00 07/07/20 20:59 06/08/20 08:59 Enoxaparin Sodium (Lovenox) 40 mg DAILY SUBQ 05/30/20 10:00 08/28/20 09:59 06/08/20 09:08 Fentanyl Citrate 250 ml @ 1 mls/hr Q24H IV 06/07/20 17:01 06/14/20 17:00 06/07/20 17:13 Insulin Aspart (NovoLOG) EVERY 6 HOURS SUBQ 06/07/20 00:00 09/03/20 11:59 06/08/20 05:22 Insulin Aspart (NovoLOG) 12 units EVERY 6 HOURS SUBQ 06/07/20 12:00 09/04/20 08:59 06/08/20 05:23 Methylprednisolone Sodium Succinate (Solu-MEDROL) 40 mg DAILY IVP 06/08/20 09:00 09/06/20 08:59 06/08/20 09:00 Midazolam HCl 100 ml @ 0 mls/hr Q24H PRN IV sedation 06/08/20 06:15 06/10/20 06:14 06/08/20 06:25 Pantoprazole (Protonix) 40 mg DAILY IVP 06/03/20 09:00 07/03/20 08:59 06/08/20 08:59 Polyethylene Glycol (Miralax) 17 gm BEDTIME GT 06/07/20 21:00 07/07/20 20:59 06/07/20 20:18 Sodium Chloride 1,000 ml @ 50 mls/hr Q20H IV 06/06/20 08:00 07/06/20 07:59 06/08/20 00:31 Assessment/Plan Problem List: (1) Diabetes mellitus out of control ICD Codes: E11.65 - Type 2 diabetes mellitus with hyperglycemia SNOMED: 81553498, 047853784 (2) Pneumonia due to COVID-19 virus ICD Codes: U07.1 - COVID-19; J12.82 - Pneumonia due to coronavirus disease 2019 SNOMED: 216791948975696752 (3) Respiratory distress ICD Codes: R06.03 - Acute respiratory distress; J12.82 - Pneumonia due to coronavirus disease 2019 SNOMED: 080794407 Status: unchanged Assessment/Plan: increase Novolog to 18 units every 6 hours continue Novolog sliding scale every 6 hours Huber Adame MD Jun 08, 2020 11:43
--- NOTE | 2020-06-08 12:00 | NUR ---
NURSE NOTES: VS stable. Pt repositioned and oral care done. Will continue to monitor.
--- NOTE | 2020-06-08 12:37 | Infectious Diseases Prog Note ---
Assessment/Plan Assessment/Plan A 1. COVID19 pneumonia 2. Hypoxic respiratory failure 3. Morbid obesity 4. DM type with hyperglycemia 5. Thrombocytopenia P 1. Finished remdesivir course 2. continue Solumedrol tapering 3. continue Rocephin 4. continue isolation Subjective ROS Limited/Unobtainable: Yes Neurologic: Reports: other - sedated on restraint Allergies: Coded Allergies: No Known Allergies (Unverified , 05/28/20) Objective Last 24 Hour Vital Signs Date Time Temp Pulse Resp B/P (MAP) Pulse Ox O2 Delivery O2 Flow Rate FiO2 06/08/20 10:40 88 22 65 06/08/20 08:00 65 06/08/20 07:13 24 118/65 Mechanical Ventilator 65 06/08/20 07:00 113 24 118/65 (82) 97 06/08/20 07:00 105 26 65 06/08/20 06:55 97.3 06/08/20 06:30 117 24 06/08/20 06:25 26 Mechanical Ventilator 26.0 65 06/08/20 06:13 26 118/72 Mechanical Ventilator 65 06/08/20 06:00 25 Mechanical Ventilator 65 06/08/20 06:00 97.3 130 26 118/72 (87) 100 06/08/20 05:13 28 121/79 Mechanical Ventilator 65 06/08/20 05:08 28 Mechanical Ventilator 26.0 65 06/08/20 05:07 28 Mechanical Ventilator 65 06/08/20 05:05 98.4 06/08/20 05:00 28 Mechanical Ventilator 65 06/08/20 05:00 136 28 121/79 (93) 99 06/08/20 04:13 26 112/74 Mechanical Ventilator 65 06/08/20 04:00 128 06/08/20 04:00 127 26 112/74 (87) 100 06/08/20 04:00 65 06/08/20 04:00 Mechanical Ventilator 06/08/20 04:00 25 Mechanical Ventilator 65 06/08/20 03:45 40 Mechanical Ventilator 65 06/08/20 03:30 38 Mechanical Ventilator 65 06/08/20 03:13 27 112/74 Mechanical Ventilator 65 06/08/20 03:00 25 Mechanical Ventilator 65 06/08/20 03:00 118 26 118/74 (89) 100 06/08/20 02:13 25 120/79 Mechanical Ventilator 25 06/08/20 02:00 115 28 120/79 (93) 98 06/08/20 02:00 25 Mechanical Ventilator 65 06/08/20 01:51 114 24 65 06/08/20 01:13 25 106/58 Mechanical Ventilator 65 06/08/20 01:00 25 Mechanical Ventilator 65 06/08/20 01:00 107 24 106/58 (74) 100 06/08/20 00:13 26 120/69 Mechanical Ventilator 65 06/08/20 00:00 65 06/08/20 00:00 109 06/08/20 00:00 98.4 106 26 125/69 (87) 94 06/08/20 00:00 25 Mechanical Ventilator 100 06/08/20 00:00 Mechanical Ventilator 06/07/20 23:45 25 Mechanical Ventilator 65 06/07/20 23:30 25 Mechanical Ventilator 65 06/07/20 23:15 25 Mechanical Ventilator 65 06/07/20 23:13 26 125/69 Mechanical Ventilator 65 06/07/20 23:00 25 Mechanical Ventilator 100 06/07/20 23:00 103 25 112/69 (83) 95 06/07/20 22:13 26 110/67 Mechanical Ventilator 65 06/07/20 22:00 26 Mechanical Ventilator 100 06/07/20 22:00 104 25 110/67 (81) 94 06/07/20 21:13 27 122/69 Mechanical Ventilator 65 06/07/20 21:00 26 Mechanical Ventilator 100 06/07/20 21:00 107 27 122/69 (86) 94 06/07/20 20:13 26 113/64 Mechanical Ventilator 65 06/07/20 20:00 97.6 104 26 113/64 (80) 95 06/07/20 20:00 26 Mechanical Ventilator 100 06/07/20 20:00 107 06/07/20 20:00 Mechanical Ventilator 06/07/20 19:46 102 26 65 06/07/20 19:13 23 118/68 Mechanical Ventilator 65 06/07/20 19:00 98 23 118/68 (85) 95 06/07/20 19:00 23 Mechanical Ventilator 65 06/07/20 18:13 24 119/72 Mechanical Ventilator 65 06/07/20 18:00 99 24 119/72 (88) 97 06/07/20 18:00 24 Mechanical Ventilator 65 06/07/20 17:13 25 121/60 Mechanical Ventilator 65 06/07/20 17:00 26 Mechanical Ventilator 65 06/07/20 17:00 102 26 121/60 (80) 96 06/07/20 16:45 65 06/07/20 16:45 65 06/07/20 16:00 75 06/07/20 16:00 24 Mechanical Ventilator 75 06/07/20 16:00 24 112/97 Mechanical Ventilator 65 06/07/20 16:00 107 24 112/97 (102) 98 06/07/20 16:00 Mechanical Ventilator 06/07/20 16:00 106 06/07/20 15:15 104 25 75 06/07/20 15:00 99 23 115/62 (79) 98 06/07/20 15:00 23 Mechanical Ventilator 75 06/07/20 15:00 23 115/62 Mechanical Ventilator 75 06/07/20 14:46 20 Mechanical Ventilator 75 06/07/20 14:00 24 113/59 Mechanical Ventilator 75 06/07/20 14:00 101 24 113/59 (77) 100 06/07/20 13:00 106 25 116/67 (83) 100 06/07/20 13:00 25 116/67 Mechanical Ventilator 75 Height (Feet): 5 Height (Inches): 5.00 Weight (Pounds): 308 HEENT: other - orally intubated, FIO2=65% Cardiovascular: normal rate, other - R arm PICC line Abdomen: soft, non tender, other - tube feeding Genitourinary: other - Lennon catheter Extremities: other - edema Neurologic/Psychiatric: unresponsiveness Laboratory Tests Test 06/08/20 03:15 06/08/20 05:19 06/08/20 10:00 White Blood Count 14.1 K/UL (4.8-10.8) H Red Blood Count 3.90 M/UL (4.20-5.40) L Hemoglobin 11.3 G/DL (12.0-16.0) L Hematocrit 35.9 % (37.0-47.0) L Mean Corpuscular Volume 92 FL (80-99) Mean Corpuscular Hemoglobin 29.0 PG (27.0-31.0) Mean Corpuscular Hemoglobin Concent 31.5 G/DL (32.0-36.0) L Red Cell Distribution Width 14.7 % (11.6-14.8) Platelet Count 103 K/UL (150-450) L Mean Platelet Volume 9.8 FL (6.5-10.1) Neutrophils (%) (Auto) % (45.0-75.0) Lymphocytes (%) (Auto) % (20.0-45.0) Monocytes (%) (Auto) % (1.0-10.0) Eosinophils (%) (Auto) % (0.0-3.0) Basophils (%) (Auto) % (0.0-2.0) Differential Total Cells Counted 100 Neutrophils % (Manual) 84 % (45-75) H Lymphocytes % (Manual) 10 % (20-45) L Monocytes % (Manual) 5 % (1-10) Eosinophils % (Manual) 1 % (0-3) Basophils % (Manual) 0 % (0-2) Band Neutrophils 0 % (0-8) Platelet Estimate Decreased L Platelet Morphology Normal Anisocytosis 1+ Sodium Level 142 MMOL/L (136-145) Potassium Level 4.4 MMOL/L (3.5-5.1) Chloride Level 103 MMOL/L (98-107) Carbon Dioxide Level 39 MMOL/L (21-32) H Anion Gap 0 mmol/L (5-15) L Blood Urea Nitrogen 28 mg/dL (7-18) H Creatinine 0.7 MG/DL (0.55-1.30) Estimat Glomerular Filtration Rate > 60 mL/min (>60) Glucose Level 162 MG/DL (74-106) #H Calcium Level 8.4 MG/DL (8.5-10.1) L Total Bilirubin 0.9 MG/DL (0.2-1.0) Aspartate Amino Transf (AST/SGOT) 48 U/L (15-37) H Alanine Aminotransferase (ALT/SGPT) 62 U/L (12-78) Alkaline Phosphatase 76 U/L (46-116) Total Protein 6.3 G/DL (6.4-8.2) L Albumin 2.0 G/DL (3.4-5.0) L Globulin 4.3 g/dL Albumin/Globulin Ratio 0.5 (1.0-2.7) L POC Whole Blood Glucose Pending Arterial Blood pH 7.409 (7.350-7.450) Arterial Blood Partial Pressure CO2 62.6 mmHg (35.0-45.0) *H Arterial Blood Partial Pressure O2 59.0 mmHg (75.0-100.0) L Arterial Blood HCO3 38.7 mmol/L (22.0-26.0) H Arterial Blood Oxygen Saturation 90.2 % (95-100) L Arterial Blood Base Excess 11.8 (-2-2) *H Jeremiah Test Positive Current Medications Medications (Trade) Dose Ordered Sig/Zelda Route PRN Reason Start Time Stop Time Status Last Admin Dose Admin Acetaminophen (Tylenol) 650 mg Q4H PRN NG Temp >100.5 05/31/20 21:45 06/30/20 21:44 06/02/20 14:36 Acetaminophen (Tylenol) 650 mg Q6H PRN NG Mild Pain (Pain Scale 1-3) 06/06/20 18:00 07/06/20 17:59 06/08/20 04:35 Ceftriaxone Sodium 1 gm/ Sodium Chloride 55 ml @ 110 mls/hr DAILY IVPB 05/29/20 09:00 06/11/20 23:59 06/08/20 08:59 Chlorhexidine Gluconate (Inna-Hex 2%) 1 applic DAILY@2000 TOPIC 05/30/20 20:00 08/28/20 19:59 06/07/20 20:17 Dextrose (Dextrose 50%) 25 ml Q30M PRN IV Hypoglycemia 06/05/20 10:45 09/03/20 10:44 Dextrose (Dextrose 50%) 50 ml Q30M PRN IV Hypoglycemia 06/05/20 10:45 09/03/20 10:44 Docusate Sodium (Colace) 100 mg Q12HR GT 06/07/20 21:00 07/07/20 20:59 06/08/20 08:59 Enoxaparin Sodium (Lovenox) 40 mg DAILY SUBQ 05/30/20 10:00 08/28/20 09:59 06/08/20 09:08 Fentanyl Citrate 250 ml @ 1 mls/hr Q24H IV 06/07/20 17:01 06/14/20 17:00 06/07/20 17:13 Insulin Aspart (NovoLOG) EVERY 6 HOURS SUBQ 06/07/20 00:00 09/03/20 11:59 06/08/20 05:22 Insulin Aspart (NovoLOG) 18 units EVERY 6 HOURS SUBQ 06/08/20 12:00 09/04/20 08:59 Methylprednisolone Sodium Succinate (Solu-MEDROL) 40 mg DAILY IVP 06/08/20 09:00 09/06/20 08:59 06/08/20 09:00 Midazolam HCl 100 ml @ 0 mls/hr Q24H PRN IV sedation 06/08/20 06:15 06/10/20 06:14 06/08/20 06:25 Pantoprazole (Protonix) 40 mg DAILY IVP 06/03/20 09:00 07/03/20 08:59 06/08/20 08:59 Polyethylene Glycol (Miralax) 17 gm BEDTIME GT 06/07/20 21:00 07/07/20 20:59 06/07/20 20:18 Sodium Chloride 1,000 ml @ 50 mls/hr Q20H IV 06/06/20 08:00 07/06/20 07:59 06/08/20 00:31 Colt Arana MD Jun 08, 2020 12:37
--- NOTE | 2020-06-08 14:22 | Pulmonology Progress Note ---
Subjective ROS Limited/Unobtainable: Yes Interval Events: Remains intubated Constitutional: Denies: fever HEENT: Repors: no symptoms Respiratory: Reports: no symptoms Cardiovascular: Reports: no symptoms Gastrointestinal/Abdominal: Reports: no symptoms Genitourinary: Reports: no symptoms Allergies: Coded Allergies: No Known Allergies (Unverified , 05/28/20) All Systems: reviewed and negative except above Objective Last 24 Hour Vital Signs Date Time Temp Pulse Resp B/P (MAP) Pulse Ox O2 Delivery O2 Flow Rate FiO2 06/08/20 10:40 88 22 65 06/08/20 08:00 65 06/08/20 07:13 24 118/65 Mechanical Ventilator 65 06/08/20 07:00 113 24 118/65 (82) 97 06/08/20 07:00 105 26 65 06/08/20 06:55 97.3 06/08/20 06:30 117 24 06/08/20 06:25 26 Mechanical Ventilator 26.0 65 06/08/20 06:13 26 118/72 Mechanical Ventilator 65 06/08/20 06:00 25 Mechanical Ventilator 65 06/08/20 06:00 97.3 130 26 118/72 (87) 100 06/08/20 05:13 28 121/79 Mechanical Ventilator 65 06/08/20 05:08 28 Mechanical Ventilator 26.0 65 06/08/20 05:07 28 Mechanical Ventilator 65 06/08/20 05:05 98.4 06/08/20 05:00 28 Mechanical Ventilator 65 06/08/20 05:00 136 28 121/79 (93) 99 06/08/20 04:13 26 112/74 Mechanical Ventilator 65 06/08/20 04:00 128 06/08/20 04:00 127 26 112/74 (87) 100 06/08/20 04:00 65 06/08/20 04:00 Mechanical Ventilator 06/08/20 04:00 25 Mechanical Ventilator 65 06/08/20 03:45 40 Mechanical Ventilator 65 06/08/20 03:30 38 Mechanical Ventilator 65 06/08/20 03:13 27 112/74 Mechanical Ventilator 65 06/08/20 03:00 25 Mechanical Ventilator 65 06/08/20 03:00 118 26 118/74 (89) 100 06/08/20 02:13 25 120/79 Mechanical Ventilator 25 06/08/20 02:00 115 28 120/79 (93) 98 06/08/20 02:00 25 Mechanical Ventilator 65 06/08/20 01:51 114 24 65 06/08/20 01:13 25 106/58 Mechanical Ventilator 65 06/08/20 01:00 25 Mechanical Ventilator 65 06/08/20 01:00 107 24 106/58 (74) 100 06/08/20 00:13 26 120/69 Mechanical Ventilator 65 06/08/20 00:00 65 06/08/20 00:00 109 06/08/20 00:00 98.4 106 26 125/69 (87) 94 06/08/20 00:00 25 Mechanical Ventilator 100 06/08/20 00:00 Mechanical Ventilator 06/07/20 23:45 25 Mechanical Ventilator 65 06/07/20 23:30 25 Mechanical Ventilator 65 06/07/20 23:15 25 Mechanical Ventilator 65 06/07/20 23:13 26 125/69 Mechanical Ventilator 65 06/07/20 23:00 25 Mechanical Ventilator 100 06/07/20 23:00 103 25 112/69 (83) 95 06/07/20 22:13 26 110/67 Mechanical Ventilator 65 06/07/20 22:00 26 Mechanical Ventilator 100 06/07/20 22:00 104 25 110/67 (81) 94 06/07/20 21:13 27 122/69 Mechanical Ventilator 65 06/07/20 21:00 26 Mechanical Ventilator 100 06/07/20 21:00 107 27 122/69 (86) 94 06/07/20 20:13 26 113/64 Mechanical Ventilator 65 06/07/20 20:00 97.6 104 26 113/64 (80) 95 06/07/20 20:00 26 Mechanical Ventilator 100 06/07/20 20:00 107 06/07/20 20:00 Mechanical Ventilator 06/07/20 19:46 102 26 65 06/07/20 19:13 23 118/68 Mechanical Ventilator 65 06/07/20 19:00 98 23 118/68 (85) 95 06/07/20 19:00 23 Mechanical Ventilator 65 06/07/20 18:13 24 119/72 Mechanical Ventilator 65 06/07/20 18:00 99 24 119/72 (88) 97 06/07/20 18:00 24 Mechanical Ventilator 65 06/07/20 17:13 25 121/60 Mechanical Ventilator 65 06/07/20 17:00 26 Mechanical Ventilator 65 06/07/20 17:00 102 26 121/60 (80) 96 06/07/20 16:45 65 06/07/20 16:45 65 06/07/20 16:00 75 06/07/20 16:00 24 Mechanical Ventilator 75 06/07/20 16:00 24 112/97 Mechanical Ventilator 65 06/07/20 16:00 107 24 112/97 (102) 98 06/07/20 16:00 Mechanical Ventilator 06/07/20 16:00 106 06/07/20 15:15 104 25 75 06/07/20 15:00 99 23 115/62 (79) 98 06/07/20 15:00 23 Mechanical Ventilator 75 06/07/20 15:00 23 115/62 Mechanical Ventilator 75 06/07/20 14:46 20 Mechanical Ventilator 75 Intake and Output 06/07/20 06/08/20 19:00 07:00 Intake Total 1549.87 ml 1629.13 ml Output Total 760 ml 660 ml Balance 789.87 ml 969.13 ml Free Water 100 ml IV Total 829.87 ml 749.13 ml Tube Feeding 720 ml 720 ml Other 60 ml Output Urine Total 760 ml 660 ml General Appearance: no acute distress HEENT: normocephalic Respiratory: chest wall non-tender Cardiovascular: normal peripheral pulses Abdomen: normal bowel sounds Laboratory Tests 06/08/20 03:15: White Blood Count 14.1H, Red Blood Count 3.90L, Hemoglobin 11.3L, Hematocrit 35.9L, Mean Corpuscular Volume 92, Mean Corpuscular Hemoglobin 29.0, Mean Corpuscular Hemoglobin Concent 31.5L, Red Cell Distribution Width 14.7, Platelet Count 103L, Mean Platelet Volume 9.8, Neutrophils (%) (Auto) , Lymphocytes (%) (Auto) , Monocytes (%) (Auto) , Eosinophils (%) (Auto) , Basophils (%) (Auto) , Differential Total Cells Counted 100, Neutrophils % (Manual) 84H, Lymphocytes % (Manual) 10L, Monocytes % (Manual) 5, Eosinophils % (Manual) 1, Basophils % (Manual) 0, Band Neutrophils 0, Platelet Estimate DecreasedL, Platelet Morphology Normal, Anisocytosis 1+, Sodium Level 142, Potassium Level 4.4, Chloride Level 103, Carbon Dioxide Level 39H, Anion Gap 0L, Blood Urea Nitrogen 28H, Creatinine 0.7, Estimat Glomerular Filtration Rate > 60, Glucose Level 162#H, Calcium Level 8.4L, Total Bilirubin 0.9, Aspartate Amino Transf (AST/SGOT) 48H, Alanine Aminotransferase (ALT/SGPT) 62, Alkaline Phosphatase 76, Total Protein 6.3L, Albumin 2.0L, Globulin 4.3, Albumin/Globulin Ratio 0.5L 06/08/20 05:19: POC Whole Blood Glucose [Pending] 06/08/20 10:00: Arterial Blood pH 7.409, Arterial Blood Partial Pressure CO2 62.6*H, Arterial Blood Partial Pressure O2 59.0L, Arterial Blood HCO3 38.7H, Arterial Blood Oxygen Saturation 90.2L, Arterial Blood Base Excess 11.8*H, Jeremiah Test Positive Current Medications Medications (Trade) Dose Ordered Sig/Zelda Route PRN Reason Start Time Stop Time Status Last Admin Dose Admin Acetaminophen (Tylenol) 650 mg Q4H PRN NG Temp >100.5 05/31/20 21:45 06/30/20 21:44 06/02/20 14:36 Acetaminophen (Tylenol) 650 mg Q6H PRN NG Mild Pain (Pain Scale 1-3) 06/06/20 18:00 07/06/20 17:59 06/08/20 04:35 Ceftriaxone Sodium 1 gm/ Sodium Chloride 55 ml @ 110 mls/hr DAILY IVPB 05/29/20 09:00 06/11/20 23:59 06/08/20 08:59 Chlorhexidine Gluconate (Inna-Hex 2%) 1 applic DAILY@2000 TOPIC 05/30/20 20:00 08/28/20 19:59 06/07/20 20:17 Dextrose (Dextrose 50%) 25 ml Q30M PRN IV Hypoglycemia 06/05/20 10:45 09/03/20 10:44 Dextrose (Dextrose 50%) 50 ml Q30M PRN IV Hypoglycemia 06/05/20 10:45 09/03/20 10:44 Docusate Sodium (Colace) 100 mg Q12HR GT 06/07/20 21:00 07/07/20 20:59 06/08/20 08:59 Enoxaparin Sodium (Lovenox) 40 mg DAILY SUBQ 05/30/20 10:00 08/28/20 09:59 06/08/20 09:08 Fentanyl Citrate 250 ml @ 1 mls/hr Q24H IV 06/07/20 17:01 06/14/20 17:00 06/07/20 17:13 Insulin Aspart (NovoLOG) EVERY 6 HOURS SUBQ 06/07/20 00:00 09/03/20 11:59 06/08/20 12:00 Insulin Aspart (NovoLOG) 18 units EVERY 6 HOURS SUBQ 06/08/20 12:00 09/04/20 08:59 06/08/20 12:00 Methylprednisolone Sodium Succinate (Solu-MEDROL) 40 mg DAILY IVP 06/08/20 09:00 09/06/20 08:59 06/08/20 09:00 Midazolam HCl 100 ml @ 0 mls/hr Q24H PRN IV sedation 06/08/20 06:15 06/10/20 06:14 06/08/20 06:25 Pantoprazole (Protonix) 40 mg DAILY IVP 06/03/20 09:00 07/03/20 08:59 06/08/20 08:59 Polyethylene Glycol (Miralax) 17 gm BEDTIME GT 06/07/20 21:00 07/07/20 20:59 06/07/20 20:18 Sodium Chloride 1,000 ml @ 50 mls/hr Q20H IV 06/06/20 08:00 07/06/20 07:59 06/08/20 00:31 Assessment/Plan Assessment/Plan 1. COVID-19 pneumonia -Intubated 05/28/20 - We will continue broad-spectrum antibiotics. - We will continue dexamethasone -Defer use of remdesivir to ID -Continue monitoring SaO2 and keep it >92% -Continue PEEP 14; ; FiO2 90% -> 65%; peak airway pressure approx 36 today - -will begin OGT feeding - May need pressors -Continue sedation -Need to keep patient completely sedated. 2. Hyponatremia -Per primary MD 3. Elevated inflammatory markers -Continue Lovenox The care for this patient was discussed with my supervising physician Time spent for this case was approximately 31 minutes Vamshi Garcia Jun 08, 2020 14:22
--- NOTE | 2020-06-08 16:00 | NUR ---
NURSE NOTES: VS stable at this time. FiO2 increased to 75% as pt saturation dropped to 88-89%. Pt SpO2 now 93-94%. Will continue to monitor. Pt repositioned and oral care done. Will continue to monitor.
--- NOTE | 2020-06-08 18:00 | NUR ---
NURSE NOTES: Pt turned, linen changed, and oral care done. VS stable at this time. When pt laid flat SpO2 dropped to 86% but recovered quickly when sat back up to 30 degrees. Will continue to monitor.
[2020-06-08] MEDS: fentaNYL 2500mcg/NS 250ml 250 ML IV SCH (18:38)
[2020-06-08] MEDS: Midazolam HCl 50mg/10ml vial 100 MG in NS 180 ML IV PRN (18:48)
--- NOTE | 2020-06-08 19:29 | NUR ---
HAND-OFF: Report given to RAKEL Lizama.
--- NOTE | 2020-06-08 19:30 | NUR ---
NURSE NOTES: Received patient from RAKEL Jennings. patient is sedated, Fentanyl 90mcg/hr and versed 4mg/hr, RASS score -2. sinus rhythm on the monitor. intubated ETT 7.5, 23cm at the lip. AC 15 TV 500 FiO2 75% PEEP 14, tolerating well. OGT in place and tube feeding running Vital AF @ml, tolerating well. marrero in place and draining well to gravity, hematuria noted. bilateral soft restraints are on. bed to lowest position and locked, call light within easy reach, side rails up x3. will continue plan of care.
[2020-06-08] MEDS: Dyna-Hex 2% Top Sol 2oz TOPIC SCH (21:03)
[2020-06-08] MEDS: Miralax 17gm pkt GT SCH (21:03)
--- NOTE | 2020-06-08 21:57 | General Progress Note ---
Subjective ROS Limited/Unobtainable: Yes Allergies: Coded Allergies: No Known Allergies (Unverified , 05/28/20) Objective Last 24 Hour Vital Signs Date Time Temp Pulse Resp B/P (MAP) Pulse Ox O2 Delivery O2 Flow Rate FiO2 06/08/20 21:00 88 23 110/64 (79) 91 06/08/20 20:00 75 06/08/20 20:00 Mechanical Ventilator Mechanical Ventilator 06/08/20 20:00 98.5 91 23 115/70 (85) 93 06/08/20 19:03 91 24 75 06/08/20 19:00 24 Mechanical Ventilator 75 06/08/20 19:00 24 115/68 Mechanical Ventilator 75 06/08/20 19:00 24 Mechanical Ventilator 75 06/08/20 19:00 91 23 115/68 (84) 94 06/08/20 18:48 23 Mechanical Ventilator 75 06/08/20 18:38 23 130/75 Mechanical Ventilator 75 06/08/20 18:00 24 130/75 Mechanical Ventilator 75 06/08/20 18:00 24 Mechanical Ventilator 75 06/08/20 18:00 95 22 130/75 (93) 89 06/08/20 17:00 24 130/75 Mechanical Ventilator 75 06/08/20 17:00 24 Mechanical Ventilator 75 06/08/20 17:00 96 25 162/91 (114) 88 06/08/20 16:00 99.0 88 23 134/73 (93) 95 06/08/20 16:00 75 06/08/20 16:00 21 162/91 Mechanical Ventilator 75 06/08/20 16:00 24 Mechanical Ventilator 75 06/08/20 16:00 Mechanical Ventilator Mechanical Ventilator 06/08/20 16:00 90 06/08/20 15:00 85 22 112/64 (80) 98 06/08/20 15:00 24 112/64 Mechanical Ventilator 65 06/08/20 15:00 24 Mechanical Ventilator 65 06/08/20 15:00 96 24 75 06/08/20 14:00 22 121/68 Mechanical Ventilator 65 06/08/20 14:00 24 Mechanical Ventilator 65 06/08/20 14:00 88 22 121/68 (85) 99 06/08/20 13:00 23 Mechanical Ventilator 65 06/08/20 13:00 23 133/79 Mechanical Ventilator 65 06/08/20 13:00 24 Mechanical Ventilator 65 06/08/20 13:00 89 23 133/79 (97) 97 06/08/20 12:00 Mechanical Ventilator Mechanical Ventilator 06/08/20 12:00 65 06/08/20 12:00 99.8 90 23 123/71 (88) 95 06/08/20 12:00 24 Mechanical Ventilator 65 06/08/20 12:00 24 123/71 Mechanical Ventilator 65 06/08/20 12:00 24 Mechanical Ventilator 65 06/08/20 12:00 88 06/08/20 11:00 24 Mechanical Ventilator 65 06/08/20 11:00 24 Mechanical Ventilator 65 06/08/20 11:00 22 118/75 Mechanical Ventilator 65 06/08/20 11:00 24 Mechanical Ventilator 65 06/08/20 11:00 91 23 118/75 (89) 90 06/08/20 10:40 88 22 65 06/08/20 10:00 24 Mechanical Ventilator 65 06/08/20 10:00 23 Mechanical Ventilator 65 06/08/20 10:00 23 123/69 Mechanical Ventilator 65 06/08/20 10:00 24 Mechanical Ventilator 65 06/08/20 10:00 99 24 123/69 (87) 98 06/08/20 09:00 98 23 116/70 (85) 98 06/08/20 09:00 24 Mechanical Ventilator 65 06/08/20 09:00 24 Mechanical Ventilator 65 06/08/20 09:00 24 116/70 Mechanical Ventilator 65 06/08/20 09:00 24 Mechanical Ventilator 65 06/08/20 08:00 65 06/08/20 08:00 98.6 105 25 117/76 (90) 97 06/08/20 08:00 24 Mechanical Ventilator 65 06/08/20 08:00 24 Mechanical Ventilator 65 06/08/20 08:00 23 117/76 Mechanical Ventilator 65 06/08/20 08:00 24 Mechanical Ventilator 65 06/08/20 08:00 110 06/08/20 08:00 Mechanical Ventilator Mechanical Ventilator 06/08/20 07:13 24 118/65 Mechanical Ventilator 65 06/08/20 07:00 113 24 118/65 (82) 97 06/08/20 07:00 105 26 65 06/08/20 06:55 97.3 06/08/20 06:30 117 24 06/08/20 06:25 26 Mechanical Ventilator 26.0 65 06/08/20 06:13 26 118/72 Mechanical Ventilator 65 06/08/20 06:00 25 Mechanical Ventilator 65 06/08/20 06:00 97.3 130 26 118/72 (87) 100 06/08/20 05:13 28 121/79 Mechanical Ventilator 65 06/08/20 05:08 28 Mechanical Ventilator 26.0 65 06/08/20 05:07 28 Mechanical Ventilator 65 06/08/20 05:05 98.4 06/08/20 05:00 28 Mechanical Ventilator 65 06/08/20 05:00 136 28 121/79 (93) 99 06/08/20 04:13 26 112/74 Mechanical Ventilator 65 06/08/20 04:00 128 06/08/20 04:00 127 26 112/74 (87) 100 06/08/20 04:00 65 06/08/20 04:00 Mechanical Ventilator 06/08/20 04:00 25 Mechanical Ventilator 65 06/08/20 03:45 40 Mechanical Ventilator 65 06/08/20 03:30 38 Mechanical Ventilator 65 06/08/20 03:13 27 112/74 Mechanical Ventilator 65 06/08/20 03:00 25 Mechanical Ventilator 65 06/08/20 03:00 118 26 118/74 (89) 100 06/08/20 02:13 25 120/79 Mechanical Ventilator 25 06/08/20 02:00 115 28 120/79 (93) 98 06/08/20 02:00 25 Mechanical Ventilator 65 06/08/20 01:51 114 24 65 06/08/20 01:13 25 106/58 Mechanical Ventilator 65 06/08/20 01:00 25 Mechanical Ventilator 65 06/08/20 01:00 107 24 106/58 (74) 100 06/08/20 00:13 26 120/69 Mechanical Ventilator 65 06/08/20 00:00 65 06/08/20 00:00 109 06/08/20 00:00 98.4 106 26 125/69 (87) 94 06/08/20 00:00 25 Mechanical Ventilator 100 06/08/20 00:00 Mechanical Ventilator 06/07/20 23:45 25 Mechanical Ventilator 65 06/07/20 23:30 25 Mechanical Ventilator 65 06/07/20 23:15 25 Mechanical Ventilator 65 06/07/20 23:13 26 125/69 Mechanical Ventilator 65 06/07/20 23:00 25 Mechanical Ventilator 100 06/07/20 23:00 103 25 112/69 (83) 95 06/07/20 22:13 26 110/67 Mechanical Ventilator 65 06/07/20 22:00 26 Mechanical Ventilator 100 06/07/20 22:00 104 25 110/67 (81) 94 Intake and Output 06/07/20 06/08/20 19:00 07:00 Intake Total 1549.87 ml 1629.13 ml Output Total 760 ml 660 ml Balance 789.87 ml 969.13 ml Free Water 100 ml IV Total 829.87 ml 749.13 ml Tube Feeding 720 ml 720 ml Other 60 ml Output Urine Total 760 ml 660 ml Laboratory Tests 06/08/20 03:15: White Blood Count 14.1H, Red Blood Count 3.90L, Hemoglobin 11.3L, Hematocrit 35.9L, Mean Corpuscular Volume 92, Mean Corpuscular Hemoglobin 29.0, Mean Corpuscular Hemoglobin Concent 31.5L, Red Cell Distribution Width 14.7, Platelet Count 103L, Mean Platelet Volume 9.8, Neutrophils (%) (Auto) , Lymphocytes (%) (Auto) , Monocytes (%) (Auto) , Eosinophils (%) (Auto) , Basophils (%) (Auto) , Differential Total Cells Counted 100, Neutrophils % (Manual) 84H, Lymphocytes % (Manual) 10L, Monocytes % (Manual) 5, Eosinophils % (Manual) 1, Basophils % (Manual) 0, Band Neutrophils 0, Platelet Estimate DecreasedL, Platelet Morphology Normal, Anisocytosis 1+, Sodium Level 142, Potassium Level 4.4, Chloride Level 103, Carbon Dioxide Level 39H, Anion Gap 0L, Blood Urea Nitrogen 28H, Creatinine 0.7, Estimat Glomerular Filtration Rate > 60, Glucose Level 162#H, Calcium Level 8.4L, Total Bilirubin 0.9, Aspartate Amino Transf (AST/SGOT) 48H, Alanine Aminotransferase (ALT/SGPT) 62, Alkaline Phosphatase 76, Total Protein 6.3L, Albumin 2.0L, Globulin 4.3, Albumin/Globulin Ratio 0.5L 06/08/20 05:19: POC Whole Blood Glucose [Pending] 06/08/20 10:00: Arterial Blood pH 7.409, Arterial Blood Partial Pressure CO2 62.6*H, Arterial Blood Partial Pressure O2 59.0L, Arterial Blood HCO3 38.7H, Arterial Blood Oxygen Saturation 90.2L, Arterial Blood Base Excess 11.8*H, Jeremiah Test Positive Height (Feet): 5 Height (Inches): 5.00 Weight (Pounds): 308 Assessment/Plan Problem List: (1) Hypoxia ICD Codes: R09.02 - Hypoxemia SNOMED: 855011242 (2) Respiratory failure ICD Codes: J96.90 - Respiratory failure, unspecified, unspecified whether with hypoxia or hypercapnia SNOMED: 218324701 (3) Respiratory distress ICD Codes: R06.03 - Acute respiratory distress; J12.82 - Pneumonia due to coronavirus disease 2019 SNOMED: 681274908 (4) Pneumonia due to COVID-19 virus ICD Codes: U07.1 - COVID-19; J12.82 - Pneumonia due to coronavirus disease 2019 SNOMED: 818997196546816469 (5) Diabetes mellitus out of control ICD Codes: E11.65 - Type 2 diabetes mellitus with hyperglycemia SNOMED: 52204484, 469370742 Status: unchanged Assessment/Plan: niddm covid + resp insuff check sugars abx per id not improving sepsis pna Jamilah Kendrick MD Jun 08, 2020 21:57
--- NOTE | 2020-06-08 22:00 | NUR ---
NURSE NOTES: vital signs stable. no acute distress noted. hematuria still noted.
[2020-06-09] VITALS (24 sets, daily range): BP systolic 102–135; BP diastolic 50–78
[2020-06-09] MEDS: Acetaminophen 650mg/20.3ml NG PRN (00:59)
--- NOTE | 2020-06-09 01:00 | NUR ---
NURSE NOTES: noted temp 100.6. tylenol given and cooling measures applied. will reassess. PICC line dressing changed.
--- NOTE | 2020-06-09 03:34 | NUR ---
NURSE NOTES: bed bath performed. no BM. new tube feeding replaced. vital signs stable
[2020-06-09] MEDS: NovoLOG Insulin Flexpen SUBQ SCH ×8 (05:29→23:59)
[2020-06-09 07:21] LABS: HEMATOCRIT 34.5 % (37.0-47.0); HEMOGLOBIN 10.8 G/DL (12.0-16.0); MEAN CORPUSCULAR VOLUME 92 FL (80-99); PLATELET COUNT 104 K/UL (150-450); RED BLOOD COUNT 3.76 M/UL (4.20-5.40); RED CELL DISTRIBUTION WIDTH 14.1 % (11.6-14.8); WHITE BLOOD COUNT 9.2 K/UL (4.8-10.8)
--- NOTE | 2020-06-09 07:25 | NUR ---
NURSE HAND-OFF REPORT: Latest Vital Signs: Temperature 99.5 , Pulse 87 , B/P 126 /58 , Respiratory Rate 21 , O2 SAT 91 , Mechanical Ventilator, O2 Flow Rate . Vital Sign Comment: stable EKG Rhythm: Sinus Rhythm Rhythm change?: N MD Notified?: - MD Response: Latest Meyers Fall Score: 70 Fall Risk: High Risk Safety Measures: Call light Within Reach, Bed Alarm Zone 1, Side Rails Side Rails x2, Bed position Low and Locked. Fall Precautions: Yellow Socks Yellow Gown Door Sign Patient Fall Education Report given to RAKEL Kwan.
--- NOTE | 2020-06-09 07:30 | NUR ---
NURSE NOTES: Report received from Dixie ELLINGTON.Pt resting quietly in bed asleep noted no resp distress ,orally intubated ETT7.5, lip line 23,AC 15,TV 500 Fio2 75%Peep 14,OGT in placed per auscultation,with feeding 2 TRACY at 50 mlhr,no residual noted,Lennon cath draining dark jordyn to blood streak urine,LINDA PICC line with Fentanyl drip 90 mcg/hr and Versed drip4 mg /hr,skin hot to touch,pt with fever,SR up x2 with bilat wrist restraints in placed, HOB elevated bed lock in lowest position ,will continue with plans of care. Addendum: 06/09/20 at 0824 by CISCO IRIZARRY RN pt with OGT feeding Vital AF at 60 ml /hr, not 2 TRACY at 50 ml/hr,no residual noted.
[2020-06-09] MEDS: Docusate 100mg/10ml Liq GT SCH ×2 (08:37→20:08)
[2020-06-09] MEDS: Solu-MEDROL 40mg Inj IVP SCH (08:37)
[2020-06-09] MEDS: Pantoprazole Inj IVP SCH (08:37)
[2020-06-09] MEDS: cefTRIAXone 1 GM in NS 55 ML IVPB SCH (08:40)
[2020-06-09] MEDS: Enoxaparin 40mg Inj SUBQ SCH (08:41)
[2020-06-09 08:45] LABS: ALANINE AMINOTRANSFERASE 42 U/L (12-78); ALBUMIN 1.8 G/DL (3.4-5.0); ALBUMIN/GLOBULIN RATIO 0.4 (1.0-2.7); ALKALINE PHOSPHATASE 55 U/L (46-116); ANION GAP 4 mmol/L (5-15); ASPARTATE AMINO TRANSFERASE 45 U/L (15-37); BILIRUBIN,TOTAL 0.8 MG/DL (0.2-1.0); BLOOD UREA NITROGEN 28 mg/dL (7-18); CARBON DIOXIDE 35 MMOL/L (21-32); CHLORIDE 102 MMOL/L (98-107); CREATININE 0.7 MG/DL (0.55-1.30); SODIUM 141 MMOL/L (136-145)
--- NOTE | 2020-06-09 09:00 | NUR ---
NURSE NOTES: Due medic Lovenox 40 SQ hold, pt with hematuria,and PLT 104.
--- NOTE | 2020-06-09 09:50 | NUR ---
NURSE NOTES: Angela Delacruz increased FIO2 from 75% to 100% ,pt desaturating to 80's.endotracheal secretions suctioned ,O@ sat up to94%.
--- NOTE | 2020-06-09 10:46 | Diagnostic Imaging Report ---
EXAM: XR Chest, 1 View CLINICAL HISTORY: F/U TECHNIQUE: Frontal view of the chest. COMPARISON: Chest radiograph on 06/05/2020 FINDINGS: Hardware: Endotracheal tube terminates in the region of the mid thoracic trachea, approximately 4.4 cm above the shun. Enteric tube courses past the diaphragm and out of the [id number]. Right-sided PICC line terminates in the region of the SVC. Lungs/pleura: Improved aeration of the lungs with persistent patchy consolidations in left greater than right mid and lower lungs and diffuse hazy opacities throughout the lungs. Small bilateral pleural effusions are not excluded. Heart/mediastinum: Enlargement of the cardiac silhouette. Soft tissues: Unremarkable. Bones: No acute fracture. Upper abdomen: Normal. IMPRESSION: 1. Endotracheal tube terminates in the region of the mid thoracic trachea, approximately 4.4 cm above the shun. Enteric tube courses past the diaphragm and out of the [id number]. Right-sided PICC line terminates in the region of the SVC. 2. Improved aeration of the lungs with persistent patchy consolidations in left greater than right mid and lower lungs and diffuse hazy opacities throughout the lungs. Small bilateral pleural effusions are not excluded.
--- NOTE | 2020-06-09 11:00 | NUR ---
NURSE NOTES: Pt stable,no resp distress presented,Fio2 decreased by R.T. to 90%.
--- NOTE | 2020-06-09 11:18 | Pulmonology Progress Note ---
Subjective ROS Limited/Unobtainable: Yes Interval Events: Remains intubated Constitutional: Denies: fever HEENT: Repors: no symptoms Respiratory: Reports: no symptoms Cardiovascular: Reports: no symptoms Gastrointestinal/Abdominal: Reports: no symptoms Genitourinary: Reports: no symptoms Allergies: Coded Allergies: No Known Allergies (Unverified , 05/28/20) All Systems: reviewed and negative except above Objective Last 24 Hour Vital Signs Date Time Temp Pulse Resp B/P (MAP) Pulse Ox O2 Delivery O2 Flow Rate FiO2 06/09/20 10:00 21 Mechanical Ventilator 15.0 100 06/09/20 10:00 20 123/67 Mechanical Ventilator 15.0 100 06/09/20 10:00 84 20 123/67 (85) 98 06/09/20 09:00 21 Mechanical Ventilator 15.0 75 06/09/20 09:00 21 121/77 Mechanical Ventilator 15.0 75 06/09/20 09:00 83 21 121/77 (92) 92 06/09/20 08:00 99.2 86 21 102/78 (86) 91 06/09/20 08:00 21 Mechanical Ventilator 15.0 75 06/09/20 08:00 21 102/78 Mechanical Ventilator 15.0 75 06/09/20 08:00 75 06/09/20 08:00 Mechanical Ventilator Mechanical Ventilator 06/09/20 07:28 91 25 75 06/09/20 07:00 21 75 06/09/20 07:00 21 126/58 Mechanical Ventilator 75 06/09/20 07:00 87 21 126/58 (80) 91 06/09/20 06:30 86 22 06/09/20 06:00 80 20 121/73 (89) 92 06/09/20 06:00 22 75 06/09/20 06:00 22 121/73 Mechanical Ventilator 75 06/09/20 05:00 19 Mechanical Ventilator 75 06/09/20 05:00 19 103/57 Mechanical Ventilator 75 06/09/20 05:00 82 19 103/57 (72) 93 06/09/20 04:00 99.5 86 19 112/64 (80) 94 06/09/20 04:00 Mechanical Ventilator Mechanical Ventilator 06/09/20 04:00 85 06/09/20 04:00 19 75 06/09/20 04:00 19 112/64 Mechanical Ventilator 75 06/09/20 04:00 75 06/09/20 03:16 91 20 75 06/09/20 03:00 20 Mechanical Ventilator 75 06/09/20 03:00 20 109/50 Mechanical Ventilator 75 06/09/20 03:00 88 20 109/50 (69) 93 06/09/20 02:00 20 Mechanical Ventilator 75 06/09/20 02:00 20 124/67 Mechanical Ventilator 75 06/09/20 02:00 93 20 124/67 (86) 97 06/09/20 01:29 99.6 06/09/20 01:00 86 19 131/65 (87) 95 06/09/20 01:00 20 75 06/09/20 01:00 20 131/77 Mechanical Ventilator 75 06/09/20 00:00 Mechanical Ventilator Mechanical Ventilator 06/09/20 00:00 97 06/09/20 00:00 100.6 85 21 126/74 (91) 95 06/09/20 00:00 75 06/09/20 00:00 20 75 06/09/20 00:00 20 131/65 Mechanical Ventilator 75 06/08/20 23:10 85 21 75 06/08/20 23:00 82 21 116/70 (85) 94 06/08/20 23:00 19 Mechanical Ventilator 75 06/08/20 23:00 19 132/69 Mechanical Ventilator 75 06/08/20 22:00 22 75 06/08/20 22:00 22 116/70 Mechanical Ventilator 75 06/08/20 22:00 84 22 111/60 (77) 93 06/08/20 21:00 88 23 110/64 (79) 91 06/08/20 21:00 23 75 06/08/20 21:00 23 110/64 Mechanical Ventilator 75 06/08/20 20:00 75 06/08/20 20:00 94 06/08/20 20:00 Mechanical Ventilator Mechanical Ventilator 06/08/20 20:00 23 Mechanical Ventilator 75 06/08/20 20:00 23 115/70 Mechanical Ventilator 75 06/08/20 20:00 98.5 91 23 115/70 (85) 93 06/08/20 19:03 91 24 75 06/08/20 19:00 24 Mechanical Ventilator 75 06/08/20 19:00 24 115/68 Mechanical Ventilator 75 06/08/20 19:00 24 Mechanical Ventilator 75 06/08/20 19:00 91 23 115/68 (84) 94 06/08/20 18:48 23 Mechanical Ventilator 75 06/08/20 18:38 23 130/75 Mechanical Ventilator 75 06/08/20 18:00 24 130/75 Mechanical Ventilator 75 06/08/20 18:00 24 Mechanical Ventilator 75 06/08/20 18:00 95 22 130/75 (93) 89 06/08/20 17:00 24 130/75 Mechanical Ventilator 75 06/08/20 17:00 24 Mechanical Ventilator 75 06/08/20 17:00 96 25 162/91 (114) 88 06/08/20 16:00 99.0 88 23 134/73 (93) 95 06/08/20 16:00 75 06/08/20 16:00 21 162/91 Mechanical Ventilator 75 06/08/20 16:00 24 Mechanical Ventilator 75 06/08/20 16:00 Mechanical Ventilator Mechanical Ventilator 06/08/20 16:00 90 06/08/20 15:00 85 22 112/64 (80) 98 06/08/20 15:00 24 112/64 Mechanical Ventilator 65 06/08/20 15:00 24 Mechanical Ventilator 65 06/08/20 15:00 96 24 75 06/08/20 14:00 22 121/68 Mechanical Ventilator 65 06/08/20 14:00 24 Mechanical Ventilator 65 06/08/20 14:00 88 22 121/68 (85) 99 06/08/20 13:00 23 Mechanical Ventilator 65 06/08/20 13:00 23 133/79 Mechanical Ventilator 65 06/08/20 13:00 24 Mechanical Ventilator 65 06/08/20 13:00 89 23 133/79 (97) 97 06/08/20 12:00 Mechanical Ventilator Mechanical Ventilator 06/08/20 12:00 65 06/08/20 12:00 99.8 90 23 123/71 (88) 95 06/08/20 12:00 24 Mechanical Ventilator 65 06/08/20 12:00 24 123/71 Mechanical Ventilator 65 06/08/20 12:00 24 Mechanical Ventilator 65 06/08/20 12:00 88 Intake and Output 06/08/20 06/09/20 19:00 07:00 Intake Total 1586.5 ml 1524 ml Output Total 1400 ml 1000 ml Balance 186.5 ml 524 ml Free Water 50 ml IV Total 866.5 ml 754 ml Tube Feeding 720 ml 720 ml Output Urine Total 1400 ml 1000 ml General Appearance: no acute distress HEENT: normocephalic Respiratory: chest wall non-tender Cardiovascular: normal peripheral pulses Abdomen: normal bowel sounds Laboratory Tests 06/09/20 05:49: White Blood Count 9.2, Red Blood Count 3.76L, Hemoglobin 10.8L, Hematocrit 34.5L , Mean Corpuscular Volume 92, Mean Corpuscular Hemoglobin 28.7, Mean Corpuscular Hemoglobin Concent 31.3L, Red Cell Distribution Width 14.1, Platelet Count 104L, Mean Platelet Volume 10.6H, Neutrophils (%) (Auto) , Lymphocytes (%) (Auto) , Monocytes (%) (Auto) , Eosinophils (%) (Auto) , Basophils (%) (Auto) , Differential Total Cells Counted 100, Neutrophils % (Manual) 85H, Lymphocytes % (Manual) 12L, Monocytes % (Manual) 3, Eosinophils % (Manual) 0, Basophils % (Manual) 0, Band Neutrophils 0, Platelet Estimate DecreasedL, Platelet Morphology Normal, Anisocytosis 1+, Sodium Level 141, Potassium Level 5.0, Chloride Level 102, Carbon Dioxide Level 35H, Anion Gap 4L, Blood Urea Nitrogen 28H, Creatinine 0.7, Estimat Glomerular Filtration Rate > 60, Glucose Level 175H , Calcium Level 9.0, Total Bilirubin 0.8, Aspartate Amino Transf (AST/SGOT) 45H, Alanine Aminotransferase (ALT/SGPT) 42, Alkaline Phosphatase 55, Total Protein 5.9L, Albumin 1.8L, Globulin 4.1, Albumin/Globulin Ratio 0.4L 06/09/20 08:28: Arterial Blood pH 7.360, Arterial Blood Partial Pressure CO2 65.3*H, Arterial Blood Partial Pressure O2 61.9L, Arterial Blood HCO3 36.1H, Arterial Blood Oxygen Saturation 89.3*L, Arterial Blood Base Excess 8.6H, Jeremiah Test Positive Current Medications Medications (Trade) Dose Ordered Sig/Zelda Route PRN Reason Start Time Stop Time Status Last Admin Dose Admin Acetaminophen (Tylenol) 650 mg Q4H PRN NG Temp >100.5 05/31/20 21:45 06/30/20 21:44 06/09/20 00:59 Acetaminophen (Tylenol) 650 mg Q6H PRN NG Mild Pain (Pain Scale 1-3) 06/06/20 18:00 07/06/20 17:59 06/08/20 04:35 Ceftriaxone Sodium 1 gm/ Sodium Chloride 55 ml @ 110 mls/hr DAILY IVPB 05/29/20 09:00 06/11/20 23:59 06/09/20 08:40 Chlorhexidine Gluconate (Inna-Hex 2%) 1 applic DAILY@2000 TOPIC 05/30/20 20:00 08/28/20 19:59 06/08/20 21:03 Dextrose (Dextrose 50%) 25 ml Q30M PRN IV Hypoglycemia 06/05/20 10:45 09/03/20 10:44 Dextrose (Dextrose 50%) 50 ml Q30M PRN IV Hypoglycemia 06/05/20 10:45 09/03/20 10:44 Docusate Sodium (Colace) 100 mg Q12HR GT 06/07/20 21:00 07/07/20 20:59 06/09/20 08:37 Enoxaparin Sodium (Lovenox) 40 mg DAILY SUBQ 05/30/20 10:00 08/28/20 09:59 06/08/20 09:08 Fentanyl Citrate 250 ml @ 1 mls/hr Q24H IV 06/07/20 17:01 06/14/20 17:00 06/08/20 18:38 Insulin Aspart (NovoLOG) EVERY 6 HOURS SUBQ 06/07/20 00:00 09/03/20 11:59 06/09/20 05:29 Insulin Aspart (NovoLOG) 18 units EVERY 6 HOURS SUBQ 06/08/20 12:00 09/04/20 08:59 06/09/20 05:30 Methylprednisolone Sodium Succinate (Solu-MEDROL) 40 mg DAILY IVP 06/08/20 09:00 09/06/20 08:59 06/09/20 08:37 Midazolam HCl 100 mg/Sodium Chloride 200 ml @ 0 mls/hr Q24H PRN IV sedation 06/08/20 16:30 06/15/20 18:00 06/08/20 18:48 Pantoprazole (Protonix) 40 mg DAILY IVP 06/03/20 09:00 07/03/20 08:59 06/09/20 08:37 Polyethylene Glycol (Miralax) 17 gm BEDTIME GT 06/07/20 21:00 07/07/20 20:59 06/08/20 21:03 Sodium Chloride 1,000 ml @ 50 mls/hr Q20H IV 06/06/20 08:00 07/06/20 07:59 06/08/20 20:00 Assessment/Plan Assessment/Plan 1. COVID-19 pneumonia -Intubated 05/28/20 - We will continue broad-spectrum antibiotics. - We will continue dexamethasone -Defer use of remdesivir to ID -Continue monitoring SaO2 and keep it >92% -Continue PEEP 16; ; FiO2 100% -> 90%; will attempt to decrease PEEP to 12 - >14; peak airway pressure approx 43 today - -will begin OGT feeding - May need pressors -Continue sedation -Need to keep patient completely sedated. 2. Hyponatremia -Per primary MD 3. Elevated inflammatory markers -Continue Javier Gonzalez MD Jun 09, 2020 11:18
--- NOTE | 2020-06-09 12:08 | General Progress Note ---
Subjective ROS Limited/Unobtainable: Yes Allergies: Coded Allergies: No Known Allergies (Unverified , 05/28/20) Subjective events noted interval notes reviewed glucose values improved but still elevated Item Value Date Time Bedside Blood Glucose 220 mg/dl H 06/09/20 1130 Bedside Blood Glucose 234 mg/dl H 06/09/20 0600 Bedside Blood Glucose 256 mg/dl H 06/09/20 0000 Bedside Blood Glucose 308 mg/dl H 06/08/20 1836 Bedside Blood Glucose 243 mg/dl H 06/08/20 1200 Objective Last 24 Hour Vital Signs Date Time Temp Pulse Resp B/P (MAP) Pulse Ox O2 Delivery O2 Flow Rate FiO2 06/09/20 10:00 21 Mechanical Ventilator 15.0 100 06/09/20 10:00 20 123/67 Mechanical Ventilator 15.0 100 06/09/20 10:00 84 20 123/67 (85) 98 06/09/20 09:00 21 Mechanical Ventilator 15.0 75 06/09/20 09:00 21 121/77 Mechanical Ventilator 15.0 75 06/09/20 09:00 83 21 121/77 (92) 92 06/09/20 08:00 99.2 86 21 102/78 (86) 91 06/09/20 08:00 21 Mechanical Ventilator 15.0 75 06/09/20 08:00 21 102/78 Mechanical Ventilator 15.0 75 06/09/20 08:00 75 06/09/20 08:00 Mechanical Ventilator Mechanical Ventilator 06/09/20 08:00 88 06/09/20 07:28 91 25 75 06/09/20 07:00 21 75 06/09/20 07:00 21 126/58 Mechanical Ventilator 75 06/09/20 07:00 87 21 126/58 (80) 91 06/09/20 06:30 86 22 06/09/20 06:00 80 20 121/73 (89) 92 06/09/20 06:00 22 75 06/09/20 06:00 22 121/73 Mechanical Ventilator 75 06/09/20 05:00 19 Mechanical Ventilator 75 06/09/20 05:00 19 103/57 Mechanical Ventilator 75 06/09/20 05:00 82 19 103/57 (72) 93 06/09/20 04:00 99.5 86 19 112/64 (80) 94 1/17/21 04:00 Mechanical Ventilator Mechanical Ventilator 06/09/20 04:00 85 06/09/20 04:00 19 75 06/09/20 04:00 19 112/64 Mechanical Ventilator 75 06/09/20 04:00 75 06/09/20 03:16 91 20 75 06/09/20 03:00 20 Mechanical Ventilator 75 06/09/20 03:00 20 109/50 Mechanical Ventilator 75 06/09/20 03:00 88 20 109/50 (69) 93 06/09/20 02:00 20 Mechanical Ventilator 75 06/09/20 02:00 20 124/67 Mechanical Ventilator 75 06/09/20 02:00 93 20 124/67 (86) 97 06/09/20 01:29 99.6 06/09/20 01:00 86 19 131/65 (87) 95 06/09/20 01:00 20 75 06/09/20 01:00 20 131/77 Mechanical Ventilator 75 06/09/20 00:00 Mechanical Ventilator Mechanical Ventilator 06/09/20 00:00 97 06/09/20 00:00 100.6 85 21 126/74 (91) 95 06/09/20 00:00 75 06/09/20 00:00 20 75 06/09/20 00:00 20 131/65 Mechanical Ventilator 75 06/08/20 23:10 85 21 75 06/08/20 23:00 82 21 116/70 (85) 94 06/08/20 23:00 19 Mechanical Ventilator 75 06/08/20 23:00 19 132/69 Mechanical Ventilator 75 06/08/20 22:00 22 75 06/08/20 22:00 22 116/70 Mechanical Ventilator 75 06/08/20 22:00 84 22 111/60 (77) 93 06/08/20 21:00 88 23 110/64 (79) 91 06/08/20 21:00 23 75 06/08/20 21:00 23 110/64 Mechanical Ventilator 75 06/08/20 20:00 75 06/08/20 20:00 94 06/08/20 20:00 Mechanical Ventilator Mechanical Ventilator 06/08/20 20:00 23 Mechanical Ventilator 75 06/08/20 20:00 23 115/70 Mechanical Ventilator 75 06/08/20 20:00 98.5 91 23 115/70 (85) 93 06/08/20 19:03 91 24 75 06/08/20 19:00 24 Mechanical Ventilator 75 06/08/20 19:00 24 115/68 Mechanical Ventilator 75 06/08/20 19:00 24 Mechanical Ventilator 75 06/08/20 19:00 91 23 115/68 (84) 94 06/08/20 18:48 23 Mechanical Ventilator 75 06/08/20 18:38 23 130/75 Mechanical Ventilator 75 06/08/20 18:00 24 130/75 Mechanical Ventilator 75 06/08/20 18:00 24 Mechanical Ventilator 75 06/08/20 18:00 95 22 130/75 (93) 89 06/08/20 17:00 24 130/75 Mechanical Ventilator 75 06/08/20 17:00 24 Mechanical Ventilator 75 06/08/20 17:00 96 25 162/91 (114) 88 06/08/20 16:00 99.0 88 23 134/73 (93) 95 06/08/20 16:00 75 06/08/20 16:00 21 162/91 Mechanical Ventilator 75 06/08/20 16:00 24 Mechanical Ventilator 75 06/08/20 16:00 Mechanical Ventilator Mechanical Ventilator 06/08/20 16:00 90 06/08/20 15:00 85 22 112/64 (80) 98 06/08/20 15:00 24 112/64 Mechanical Ventilator 65 06/08/20 15:00 24 Mechanical Ventilator 65 06/08/20 15:00 96 24 75 06/08/20 14:00 22 121/68 Mechanical Ventilator 65 06/08/20 14:00 24 Mechanical Ventilator 65 06/08/20 14:00 88 22 121/68 (85) 99 06/08/20 13:00 23 Mechanical Ventilator 65 06/08/20 13:00 23 133/79 Mechanical Ventilator 65 06/08/20 13:00 24 Mechanical Ventilator 65 06/08/20 13:00 89 23 133/79 (97) 97 Intake and Output 06/08/20 06/09/20 19:00 07:00 Intake Total 1586.5 ml 1524 ml Output Total 1400 ml 1000 ml Balance 186.5 ml 524 ml Free Water 50 ml IV Total 866.5 ml 754 ml Tube Feeding 720 ml 720 ml Output Urine Total 1400 ml 1000 ml Laboratory Tests 06/09/20 05:49: White Blood Count 9.2, Red Blood Count 3.76L, Hemoglobin 10.8L, Hematocrit 34.5L , Mean Corpuscular Volume 92, Mean Corpuscular Hemoglobin 28.7, Mean Corpuscular Hemoglobin Concent 31.3L, Red Cell Distribution Width 14.1, Platelet Count 104L, Mean Platelet Volume 10.6H, Neutrophils (%) (Auto) , Lymphocytes (%) (Auto) , Monocytes (%) (Auto) , Eosinophils (%) (Auto) , Basophils (%) (Auto) , Differential Total Cells Counted 100, Neutrophils % (Manual) 85H, Lymphocytes % (Manual) 12L, Monocytes % (Manual) 3, Eosinophils % (Manual) 0, Basophils % (Manual) 0, Band Neutrophils 0, Platelet Estimate DecreasedL, Platelet Morphology Normal, Anisocytosis 1+, Sodium Level 141, Potassium Level 5.0, Chloride Level 102, Carbon Dioxide Level 35H, Anion Gap 4L, Blood Urea Nitrogen 28H, Creatinine 0.7, Estimat Glomerular Filtration Rate > 60, Glucose Level 175H , Calcium Level 9.0, Total Bilirubin 0.8, Aspartate Amino Transf (AST/SGOT) 45H, Alanine Aminotransferase (ALT/SGPT) 42, Alkaline Phosphatase 55, Total Protein 5.9L, Albumin 1.8L, Globulin 4.1, Albumin/Globulin Ratio 0.4L 06/09/20 08:28: Arterial Blood pH 7.360, Arterial Blood Partial Pressure CO2 65.3*H, Arterial Blood Partial Pressure O2 61.9L, Arterial Blood HCO3 36.1H, Arterial Blood Oxygen Saturation 89.3*L, Arterial Blood Base Excess 8.6H, Jeremiah Test Positive Height (Feet): 5 Height (Inches): 5.00 Weight (Pounds): 308 Objective Current Medications Medications (Trade) Dose Ordered Sig/Zelda Route PRN Reason Start Time Stop Time Status Last Admin Dose Admin Acetaminophen (Tylenol) 650 mg Q4H PRN NG Temp >100.5 05/31/20 21:45 06/30/20 21:44 06/09/20 00:59 Acetaminophen (Tylenol) 650 mg Q6H PRN NG Mild Pain (Pain Scale 1-3) 06/06/20 18:00 07/06/20 17:59 06/08/20 04:35 Ceftriaxone Sodium 1 gm/ Sodium Chloride 55 ml @ 110 mls/hr DAILY IVPB 05/29/20 09:00 1/19/21 23:59 06/09/20 08:40 Chlorhexidine Gluconate (Inna-Hex 2%) 1 applic DAILY@2000 TOPIC 05/30/20 20:00 08/28/20 19:59 06/08/20 21:03 Dextrose (Dextrose 50%) 25 ml Q30M PRN IV Hypoglycemia 06/05/20 10:45 09/03/20 10:44 Dextrose (Dextrose 50%) 50 ml Q30M PRN IV Hypoglycemia 06/05/20 10:45 09/03/20 10:44 Docusate Sodium (Colace) 100 mg Q12HR GT 06/07/20 21:00 07/07/20 20:59 06/09/20 08:37 Enoxaparin Sodium (Lovenox) 40 mg DAILY SUBQ 05/30/20 10:00 08/28/20 09:59 06/08/20 09:08 Fentanyl Citrate 250 ml @ 1 mls/hr Q24H IV 06/07/20 17:01 06/14/20 17:00 06/08/20 18:38 Insulin Aspart (NovoLOG) EVERY 6 HOURS SUBQ 06/07/20 00:00 09/03/20 11:59 06/09/20 11:29 Insulin Aspart (NovoLOG) 18 units EVERY 6 HOURS SUBQ 06/08/20 12:00 09/04/20 08:59 06/09/20 11:30 Methylprednisolone Sodium Succinate (Solu-MEDROL) 40 mg DAILY IVP 06/08/20 09:00 09/06/20 08:59 06/09/20 08:37 Midazolam HCl 100 mg/Sodium Chloride 200 ml @ 0 mls/hr Q24H PRN IV sedation 06/08/20 16:30 06/15/20 18:00 06/08/20 18:48 Pantoprazole (Protonix) 40 mg DAILY IVP 06/03/20 09:00 07/03/20 08:59 06/09/20 08:37 Polyethylene Glycol (Miralax) 17 gm BEDTIME GT 06/07/20 21:00 07/07/20 20:59 06/08/20 21:03 Sodium Chloride 1,000 ml @ 50 mls/hr Q20H IV 06/06/20 08:00 07/06/20 07:59 06/08/20 20:00 Assessment/Plan Problem List: (1) Diabetes mellitus out of control ICD Codes: E11.65 - Type 2 diabetes mellitus with hyperglycemia SNOMED: 56572200, 239762856 (2) Pneumonia due to COVID-19 virus ICD Codes: U07.1 - COVID-19; J12.82 - Pneumonia due to coronavirus disease 2019 SNOMED: 982351448047635894 (3) Respiratory distress ICD Codes: R06.03 - Acute respiratory distress; J12.82 - Pneumonia due to coronavirus disease 2019 SNOMED: 320579300 Status: unchanged Assessment/Plan: increase Novolog to 20 units every 6 hours continue Novolog sliding scale every 6 hours Huber Adame MD Jun 09, 2020 12:08
--- NOTE | 2020-06-09 13:00 | NUR ---
NURSE NOTES: Oral care done turned and repositioned.
--- NOTE | 2020-06-09 16:00 | NUR ---
NURSE NOTES: bed bath given,pt with large BM to brown formed stools,keep dry and clean.
--- NOTE | 2020-06-09 19:30 | NUR ---
NURSE HAND-OFF REPORT: Latest Vital Signs: Temperature 100.5 , Pulse 111 , B/P 118 /71 , Respiratory Rate 25 , O2 SAT 97 , Mechanical Ventilator, O2 Flow Rate . Vital Sign Comment: unstable EKG Rhythm: Sinus Tachycardia Rhythm change?: N MD Notified?: - MD Response: Latest Meyers Fall Score: 70 Fall Risk: High Risk Safety Measures: Call light Within Reach, Bed Alarm Zone 1, Side Rails Side Rails x2, Bed position Low and Locked. Fall Precautions: Yellow Socks Yellow Gown Door Sign Patient Fall Education Report given to Stew ELLINGTON.
[2020-06-09] MEDS: fentaNYL 2500mcg/NS 250ml 250 ML IV SCH (19:45)
[2020-06-09] MEDS: Dyna-Hex 2% Top Sol 2oz TOPIC SCH (20:08)
[2020-06-09] MEDS: Miralax 17gm pkt GT SCH (20:08)
[2020-06-09] MEDS: Midazolam HCl 50mg/10ml vial 100 MG in NS 180 ML IV PRN (20:10)
--- NOTE | 2020-06-09 20:28 | NUR ---
NURSE HAND-OFF REPORT: Latest Vital Signs: Temperature 100.5 , Pulse 111 , B/P 118 /71 , Respiratory Rate 25 , O2 SAT 97 , Mechanical Ventilator, O2 Flow Rate . Vital Sign Comment: EKG Rhythm: Sinus Tachycardia Rhythm change?: N MD Notified?: - MD Response: Latest Meyers Fall Score: 70 Fall Risk: High Risk Safety Measures: Call light Within Reach, Bed Alarm Zone 1, Side Rails Side Rails x2, Bed position Low and Locked. Fall Precautions: Yellow Socks Yellow Gown Door Sign Patient Fall Education Report given to .
--- NOTE | 2020-06-09 20:30 | NUR ---
NURSE NOTES: received report form audrey gracia pt orally intubated -vent o2 sat 97% no acute resp distress noted on sedated with varsed drip 4mg/hr and fent drip at 90mcg on-2ross tolerating tube feeding no residual urinary output good iv site and infusing well reposition and suction
--- NOTE | 2020-06-09 22:00 | General Progress Note ---
Subjective ROS Limited/Unobtainable: Yes Allergies: Coded Allergies: No Known Allergies (Unverified , 05/28/20) Objective Last 24 Hour Vital Signs Date Time Temp Pulse Resp B/P (MAP) Pulse Ox O2 Delivery O2 Flow Rate FiO2 06/09/20 20:10 25 90 06/09/20 19:45 25 118/71 Mechanical Ventilator 90 06/09/20 19:02 111 20 90 06/09/20 19:00 24 Mechanical Ventilator 90 06/09/20 19:00 24 118/71 Mechanical Ventilator 90 06/09/20 19:00 119 24 118/71 (87) 97 06/09/20 18:00 111 30 127/69 (88) 97 06/09/20 18:00 30 Mechanical Ventilator 90 06/09/20 18:00 30 127/69 Mechanical Ventilator 90 06/09/20 17:00 116 27 135/65 (88) 95 06/09/20 17:00 30 Mechanical Ventilator 30.0 90 06/09/20 17:00 28 135/65 Mechanical Ventilator 90 06/09/20 16:00 90 06/09/20 16:00 109 06/09/20 16:00 Mechanical Ventilator Mechanical Ventilator 06/09/20 16:00 100.5 105 25 128/63 (84) 97 06/09/20 16:00 25 Mechanical Ventilator 15.0 90 06/09/20 16:00 25 128/63 Mechanical Ventilator 90 06/09/20 15:28 108 25 90 06/09/20 15:00 27 Mechanical Ventilator 90 06/09/20 15:00 27 123/64 Mechanical Ventilator 15.0 90 06/09/20 15:00 110 27 123/64 (83) 95 06/09/20 14:00 95 24 124/68 (86) 97 06/09/20 14:00 24 Mechanical Ventilator 100 06/09/20 14:00 24 124/68 Mechanical Ventilator 90 06/09/20 13:00 24 Mechanical Ventilator 15.0 90 06/09/20 13:00 24 124/66 Mechanical Ventilator 90 06/09/20 13:00 94 24 124/66 (85) 96 06/09/20 12:00 86 06/09/20 12:00 24 15.0 100 06/09/20 12:00 24 125/69 Mechanical Ventilator 100 06/09/20 12:00 98.9 86 24 125/69 (87) 94 06/09/20 12:00 Mechanical Ventilator Mechanical Ventilator 06/09/20 12:00 90 06/09/20 11:39 87 23 90 06/09/20 11:00 23 Mechanical Ventilator 100 06/09/20 11:00 23 110/68 Mechanical Ventilator 100 06/09/20 11:00 88 23 110/68 (82) 94 06/09/20 10:00 21 Mechanical Ventilator 15.0 100 06/09/20 10:00 20 123/67 Mechanical Ventilator 15.0 100 06/09/20 10:00 84 20 123/67 (85) 98 06/09/20 09:00 21 Mechanical Ventilator 15.0 75 06/09/20 09:00 21 121/77 Mechanical Ventilator 15.0 75 06/09/20 09:00 83 21 121/77 (92) 92 06/09/20 08:00 99.2 86 21 102/78 (86) 91 06/09/20 08:00 21 Mechanical Ventilator 15.0 75 06/09/20 08:00 21 102/78 Mechanical Ventilator 15.0 75 06/09/20 08:00 75 06/09/20 08:00 Mechanical Ventilator Mechanical Ventilator 06/09/20 08:00 88 06/09/20 07:28 91 25 75 06/09/20 07:00 21 75 06/09/20 07:00 21 126/58 Mechanical Ventilator 75 06/09/20 07:00 87 21 126/58 (80) 91 06/09/20 06:30 86 22 06/09/20 06:00 80 20 121/73 (89) 92 06/09/20 06:00 22 75 06/09/20 06:00 22 121/73 Mechanical Ventilator 75 06/09/20 05:00 19 Mechanical Ventilator 75 06/09/20 05:00 19 103/57 Mechanical Ventilator 75 06/09/20 05:00 82 19 103/57 (72) 93 06/09/20 04:00 99.5 86 19 112/64 (80) 94 06/09/20 04:00 Mechanical Ventilator Mechanical Ventilator 06/09/20 04:00 85 06/09/20 04:00 19 75 06/09/20 04:00 19 112/64 Mechanical Ventilator 75 06/09/20 04:00 75 06/09/20 03:16 91 20 75 06/09/20 03:00 20 Mechanical Ventilator 75 06/09/20 03:00 20 109/50 Mechanical Ventilator 75 06/09/20 03:00 88 20 109/50 (69) 93 06/09/20 02:00 20 Mechanical Ventilator 75 06/09/20 02:00 20 124/67 Mechanical Ventilator 75 06/09/20 02:00 93 20 124/67 (86) 97 06/09/20 01:29 99.6 06/09/20 01:00 86 19 131/65 (87) 95 06/09/20 01:00 20 75 06/09/20 01:00 20 131/77 Mechanical Ventilator 75 06/09/20 00:00 Mechanical Ventilator Mechanical Ventilator 06/09/20 00:00 97 06/09/20 00:00 100.6 85 21 126/74 (91) 95 06/09/20 00:00 75 06/09/20 00:00 20 75 06/09/20 00:00 20 131/65 Mechanical Ventilator 75 06/08/20 23:10 85 21 75 06/08/20 23:00 82 21 116/70 (85) 94 06/08/20 23:00 19 Mechanical Ventilator 75 06/08/20 23:00 19 132/69 Mechanical Ventilator 75 06/08/20 22:00 22 75 06/08/20 22:00 22 116/70 Mechanical Ventilator 75 06/08/20 22:00 84 22 111/60 (77) 93 Intake and Output 06/08/20 06/09/20 19:00 07:00 Intake Total 1586.5 ml 1524 ml Output Total 1400 ml 1000 ml Balance 186.5 ml 524 ml Free Water 50 ml IV Total 866.5 ml 754 ml Tube Feeding 720 ml 720 ml Output Urine Total 1400 ml 1000 ml Laboratory Tests 06/09/20 05:49: White Blood Count 9.2, Red Blood Count 3.76L, Hemoglobin 10.8L, Hematocrit 34.5L , Mean Corpuscular Volume 92, Mean Corpuscular Hemoglobin 28.7, Mean Corpuscular Hemoglobin Concent 31.3L, Red Cell Distribution Width 14.1, Platelet Count 104L, Mean Platelet Volume 10.6H, Neutrophils (%) (Auto) , Lymphocytes (%) (Auto) , Monocytes (%) (Auto) , Eosinophils (%) (Auto) , Basophils (%) (Auto) , Differential Total Cells Counted 100, Neutrophils % (Manual) 85H, Lymphocytes % (Manual) 12L, Monocytes % (Manual) 3, Eosinophils % (Manual) 0, Basophils % (Manual) 0, Band Neutrophils 0, Platelet Estimate DecreasedL, Platelet Morphology Normal, Anisocytosis 1+, Sodium Level 141, Potassium Level 5.0, Chloride Level 102, Carbon Dioxide Level 35H, Anion Gap 4L, Blood Urea Nitrogen 28H, Creatinine 0.7, Estimat Glomerular Filtration Rate > 60, Glucose Level 175H , Calcium Level 9.0, Total Bilirubin 0.8, Aspartate Amino Transf (AST/SGOT) 45H, Alanine Aminotransferase (ALT/SGPT) 42, Alkaline Phosphatase 55, Total Protein 5.9L, Albumin 1.8L, Globulin 4.1, Albumin/Globulin Ratio 0.4L 06/09/20 08:28: Arterial Blood pH 7.360, Arterial Blood Partial Pressure CO2 65.3*H, Arterial Blood Partial Pressure O2 61.9L, Arterial Blood HCO3 36.1H, Arterial Blood Oxygen Saturation 89.3*L, Arterial Blood Base Excess 8.6H, Jeremiah Test Positive 06/09/20 11:23: POC Whole Blood Glucose [Pending] Height (Feet): 5 Height (Inches): 5.00 Weight (Pounds): 308 Assessment/Plan Problem List: (1) Hypoxia ICD Codes: R09.02 - Hypoxemia SNOMED: 757897594 (2) Respiratory failure ICD Codes: J96.90 - Respiratory failure, unspecified, unspecified whether with hypoxia or hypercapnia SNOMED: 166775321 (3) Respiratory distress ICD Codes: R06.03 - Acute respiratory distress; J12.82 - Pneumonia due to coronavirus disease 2019 SNOMED: 010691941 (4) Pneumonia due to COVID-19 virus ICD Codes: U07.1 - COVID-19; J12.82 - Pneumonia due to coronavirus disease 2019 SNOMED: 178826612254717832 (5) Diabetes mellitus out of control ICD Codes: E11.65 - Type 2 diabetes mellitus with hyperglycemia SNOMED: 09741400, 417769369 Status: unchanged Assessment/Plan: niddm covid + reviewed chart and labs no change poor prognosis abx per id sepsis pna Jamilah Kendrick MD Jun 09, 2020 21:59
[2020-06-10] VITALS (24 sets, daily range): BP systolic 98–126; BP diastolic 49–75
--- NOTE | 2020-06-10 | NUR ---
NURSE NOTES: bs 146 insulin coverage given
[2020-06-10] MEDS: Acetaminophen 650mg/20.3ml NG PRN ×2 (00:01→05:03)
--- NOTE | 2020-06-10 04:00 | NUR ---
NURSE NOTES: complete bed bath oral care done tyl 650for temp 101. 6 given as order
[2020-06-10] MEDS: NovoLOG Insulin Flexpen SUBQ SCH ×6 (05:51→17:54)
--- NOTE | 2020-06-10 06:00 | NUR ---
NURSE NOTES: temp 100 hr 112 s tachy sedated with fent 9o mcg and versed drip at 4mg
--- NOTE | 2020-06-10 06:40 | General Progress Note ---
Subjective ROS Limited/Unobtainable: Yes Allergies: Coded Allergies: No Known Allergies (Unverified , 05/28/20) Subjective events noted interval notes reviewed glucose values improved Item Value Date Time Bedside Blood Glucose 196 mg/dl H 06/10/20 0600 Bedside Blood Glucose 146 mg/dl H 06/10/20 0000 Bedside Blood Glucose 315 mg/dl H 06/09/20 1850 Bedside Blood Glucose 220 mg/dl H 06/09/20 1200 Bedside Blood Glucose 234 mg/dl H 06/09/20 0600 Bedside Blood Glucose 256 mg/dl H 06/09/20 0000 Objective Last 24 Hour Vital Signs Date Time Temp Pulse Resp B/P (MAP) Pulse Ox O2 Delivery O2 Flow Rate FiO2 06/10/20 06:00 22 Mechanical Ventilator 90 06/10/20 06:00 22 118/86 Mechanical Ventilator 90 06/10/20 06:00 100.0 118 23 118/68 (85) 98 06/10/20 05:33 100.0 06/10/20 05:16 98 23 90 06/10/20 05:00 119 24 123/67 (85) 97 06/10/20 05:00 20 Mechanical Ventilator 90 06/10/20 05:00 20 106/56 Mechanical Ventilator 90 06/10/20 04:00 121 06/10/20 04:00 Mechanical Ventilator Mechanical Ventilator 06/10/20 04:00 90 06/10/20 04:00 20 90 06/10/20 04:00 20 112/60 Mechanical Ventilator 90 06/10/20 04:00 101.5 113 24 123/75 (91) 97 06/10/20 03:00 19 Mechanical Ventilator 90 06/10/20 03:00 19 108/60 Mechanical Ventilator 90 06/10/20 03:00 105 23 119/61 (80) 97 06/10/20 02:00 19 Mechanical Ventilator 90 06/10/20 02:00 19 105/59 Mechanical Ventilator 90 06/10/20 02:00 96 19 108/61 (77) 96 06/10/20 01:00 99 19 105/59 (74) 98 06/10/20 01:00 19 90 06/10/20 01:00 20 112/60 Mechanical Ventilator 90 06/10/20 00:31 99.5 06/10/20 00:00 90 06/10/20 00:00 Mechanical Ventilator Mechanical Ventilator 06/10/20 00:00 20 90 06/10/20 00:00 20 108/60 Mechanical Ventilator 90 06/10/20 00:00 99 06/10/20 00:00 101.0 103 20 108/60 (76) 97 06/09/20 23:30 111 21 90 06/09/20 23:00 104 20 107/56 (73) 99 06/09/20 23:00 20 Mechanical Ventilator 90 06/09/20 23:00 19 107/59 Mechanical Ventilator 90 06/09/20 22:00 108 19 112/60 (77) 98 06/09/20 22:00 22 Mechanical Ventilator 90 06/09/20 22:00 19 112/60 Mechanical Ventilator 90 06/09/20 21:00 119 22 122/61 (81) 97 06/09/20 21:00 20 Mechanical Ventilator 90 06/09/20 21:00 25 130/80 90 06/09/20 20:10 25 90 06/09/20 20:10 25 145/80 Mechanical Ventilator 90 06/09/20 20:00 112 06/09/20 20:00 114 24 119/72 (88) 96 06/09/20 20:00 19 Mechanical Ventilator 90 06/09/20 20:00 20 122/61 Mechanical Ventilator 90 06/09/20 20:00 Mechanical Ventilator Mechanical Ventilator 06/09/20 19:45 25 118/71 Mechanical Ventilator 90 06/09/20 19:02 111 20 90 06/09/20 19:00 24 Mechanical Ventilator 90 06/09/20 19:00 24 118/71 Mechanical Ventilator 90 06/09/20 19:00 119 24 118/71 (87) 97 06/09/20 18:00 111 30 127/69 (88) 97 06/09/20 18:00 30 Mechanical Ventilator 90 06/09/20 18:00 30 127/69 Mechanical Ventilator 90 06/09/20 17:00 116 27 135/65 (88) 95 06/09/20 17:00 30 Mechanical Ventilator 30.0 90 06/09/20 17:00 28 135/65 Mechanical Ventilator 90 06/09/20 16:00 90 06/09/20 16:00 109 06/09/20 16:00 Mechanical Ventilator Mechanical Ventilator 06/09/20 16:00 100.5 105 25 128/63 (84) 97 06/09/20 16:00 25 Mechanical Ventilator 15.0 90 06/09/20 16:00 25 128/63 Mechanical Ventilator 90 06/09/20 15:28 108 25 90 06/09/20 15:00 27 Mechanical Ventilator 90 06/09/20 15:00 27 123/64 Mechanical Ventilator 15.0 90 06/09/20 15:00 110 27 123/64 (83) 95 06/09/20 14:00 95 24 124/68 (86) 97 06/09/20 14:00 24 Mechanical Ventilator 100 06/09/20 14:00 24 124/68 Mechanical Ventilator 90 06/09/20 13:00 24 Mechanical Ventilator 15.0 90 06/09/20 13:00 24 124/66 Mechanical Ventilator 90 06/09/20 13:00 94 24 124/66 (85) 96 06/09/20 12:00 86 06/09/20 12:00 24 15.0 100 06/09/20 12:00 24 125/69 Mechanical Ventilator 100 06/09/20 12:00 98.9 86 24 125/69 (87) 94 06/09/20 12:00 Mechanical Ventilator Mechanical Ventilator 06/09/20 12:00 90 06/09/20 11:39 87 23 90 06/09/20 11:00 23 Mechanical Ventilator 100 06/09/20 11:00 23 110/68 Mechanical Ventilator 100 06/09/20 11:00 88 23 110/68 (82) 94 06/09/20 10:00 21 Mechanical Ventilator 15.0 100 06/09/20 10:00 20 123/67 Mechanical Ventilator 15.0 100 06/09/20 10:00 84 20 123/67 (85) 98 06/09/20 09:00 21 Mechanical Ventilator 15.0 75 06/09/20 09:00 21 121/77 Mechanical Ventilator 15.0 75 06/09/20 09:00 83 21 121/77 (92) 92 06/09/20 08:00 99.2 86 21 102/78 (86) 91 06/09/20 08:00 21 Mechanical Ventilator 15.0 75 06/09/20 08:00 21 102/78 Mechanical Ventilator 15.0 75 06/09/20 08:00 75 06/09/20 08:00 Mechanical Ventilator Mechanical Ventilator 06/09/20 08:00 88 1/17/21 07:28 91 25 75 06/09/20 07:00 21 75 06/09/20 07:00 21 126/58 Mechanical Ventilator 75 06/09/20 07:00 87 21 126/58 (80) 91 Intake and Output 06/09/20 06/10/20 19:00 07:00 Intake Total 1474 ml 989 ml Output Total 1150 ml 1100 ml Balance 324 ml -111 ml Free Water 100 ml 150 ml IV Total 654 ml 179 ml Tube Feeding 660 ml 660 ml Other 60 ml Output Urine Total 1150 ml 1100 ml # Bowel Movements 1 Laboratory Tests 06/09/20 08:28: Arterial Blood pH 7.360, Arterial Blood Partial Pressure CO2 65.3*H, Arterial Blood Partial Pressure O2 61.9L, Arterial Blood HCO3 36.1H, Arterial Blood Oxygen Saturation 89.3*L, Arterial Blood Base Excess 8.6H, Jeremiah Test Positive 06/09/20 11:23: POC Whole Blood Glucose [Pending] Height (Feet): 5 Height (Inches): 5.00 Weight (Pounds): 308 Objective Current Medications Medications (Trade) Dose Ordered Sig/Zelda Route PRN Reason Start Time Stop Time Status Last Admin Dose Admin Acetaminophen (Tylenol) 650 mg Q4H PRN NG Temp >100.5 05/31/20 21:45 06/30/20 21:44 06/10/20 05:03 Acetaminophen (Tylenol) 650 mg Q6H PRN NG Mild Pain (Pain Scale 1-3) 06/06/20 18:00 07/06/20 17:59 06/08/20 04:35 Ceftriaxone Sodium 1 gm/ Sodium Chloride 55 ml @ 110 mls/hr DAILY IVPB 05/29/20 09:00 06/11/20 23:59 06/09/20 08:40 Chlorhexidine Gluconate (Inna-Hex 2%) 1 applic DAILY@2000 TOPIC 05/30/20 20:00 08/28/20 19:59 06/09/20 20:08 Dextrose (Dextrose 50%) 25 ml Q30M PRN IV Hypoglycemia 06/05/20 10:45 09/03/20 10:44 Dextrose (Dextrose 50%) 50 ml Q30M PRN IV Hypoglycemia 06/05/20 10:45 09/03/20 10:44 Docusate Sodium (Colace) 100 mg Q12HR GT 06/07/20 21:00 07/07/20 20:59 06/09/20 20:08 Enoxaparin Sodium (Lovenox) 40 mg DAILY SUBQ 05/30/20 10:00 08/28/20 09:59 06/08/20 09:08 Fentanyl Citrate 250 ml @ 1 mls/hr Q24H IV 06/07/20 17:01 06/14/20 17:00 06/09/20 19:45 Insulin Aspart (NovoLOG) EVERY 6 HOURS SUBQ 06/07/20 00:00 09/03/20 11:59 06/10/20 05:51 Insulin Aspart (NovoLOG) 20 units EVERY 6 HOURS SUBQ 06/09/20 18:00 09/04/20 08:59 06/10/20 05:52 Methylprednisolone Sodium Succinate (Solu-MEDROL) 40 mg DAILY IVP 06/08/20 09:00 09/06/20 08:59 06/09/20 08:37 Midazolam HCl 100 mg/Sodium Chloride 200 ml @ 0 mls/hr Q24H PRN IV sedation 06/08/20 16:30 06/15/20 18:00 06/09/20 20:10 Pantoprazole (Protonix) 40 mg DAILY IVP 06/03/20 09:00 07/03/20 08:59 06/09/20 08:37 Polyethylene Glycol (Miralax) 17 gm BEDTIME GT 06/07/20 21:00 07/07/20 20:59 06/09/20 20:08 Sodium Chloride 1,000 ml @ 50 mls/hr Q20H IV 06/06/20 08:00 07/06/20 07:59 06/09/20 16:32 Assessment/Plan Problem List: (1) Diabetes mellitus out of control ICD Codes: E11.65 - Type 2 diabetes mellitus with hyperglycemia SNOMED: 25320650, 156389257 (2) Pneumonia due to COVID-19 virus ICD Codes: U07.1 - COVID-19; J12.82 - Pneumonia due to coronavirus disease 2019 SNOMED: 004466829716171807 (3) Respiratory distress ICD Codes: R06.03 - Acute respiratory distress; J12.82 - Pneumonia due to coronavirus disease 2019 SNOMED: 633552296 Status: unchanged Assessment/Plan: continue Novolog 20 units every 6 hours continue Novolog sliding scale every 6 hours Huber Adame MD Jun 10, 2020 06:40
--- NOTE | 2020-06-10 07:00 | NUR ---
NURSE HAND-OFF REPORT: Latest Vital Signs: Temperature 100.0 , Pulse 118 , B/P 118 /58 , Respiratory Rate 20 , O2 SAT 98 , Mechanical Ventilator, O2 Flow Rate . Vital Sign Comment: EKG Rhythm: Sinus Rhythm Rhythm change?: N MD Notified?: - MD Response: Latest Meyers Fall Score: 70 Fall Risk: High Risk Safety Measures: Call light Within Reach, Bed Alarm Zone 1, Side Rails Side Rails x2, Bed position Low and Locked. Fall Precautions: Yellow Socks Yellow Gown Door Sign Patient Fall Education Report given to mo gracia using sbar.
--- NOTE | 2020-06-10 07:15 | Hematology/Onc Progress Note ---
Assessment/Plan Assessment/Plan # Thrombocytopenia is due to infection/underlying covid19+++ --> ABX ceftriaxone per id --> on steriods likely cause of initial wbc --> per pulm --> plt 107 --> smear reviewed # Anemia due to chronic disease --> hgb goal is >7 -> hgb trend 10 --> transfuse prn --> ferritin is >1000 --> hold off on iron # Elevated ddimer due to covid19++ --> duplex legs is negative --> underlying covid rx # Hypoxia -> due to covid19 # Hypoxemia --> rx same as above # Respiratory failure --> on vent --> per pulm # Pneumonia due to COVID-19 virus --> per pulm rx # Diabetes mellitus out of control --> hgb a1c goal <7 # Poor prognosis # Dvt ppx lovenox sq Appreciate consultation and dw RN Subjective Constitutional: Denies: no symptoms, chills, fever, malaise, weakness, other HEENT: Denies: no symptoms, eye pain, blurred vision, tearing, double vision, ear pain, ear discharge, nose pain, nose congestion, throat pain, throat swelling, mouth pain, mouth swelling, other Cardiovascular: Denies: no symptoms, chest pain, edema, irregular heart rate, lightheadedness, palpitations, syncope, other Respiratory: Denies: no symptoms, cough, shortness of breath, SOB with excertion, SOB at rest, sputum, wheezing, other Neurologic/Psychiatric: Denies: no symptoms, anxiety, depressed, emotional problems, headache, numbness, paresthesia, pre-existing deficit, seizure, tingling, tremors, weakness, other Endocrine: Denies: no symptoms, excessive sweating, flushing, intolerance to cold, intolerance to heat, increased hunger, increased thirst, increased urine, unexplained weight gain, unexplained weight loss, other Hematologic/Lymphatic: Denies: no symptoms, anemia, easy bleeding, easy bruising, adenopathy, other Allergies: Coded Allergies: No Known Allergies (Unverified , 05/28/20) Subjective 06/10 nv, on vent, with ogt, on fentanyl and versed, plt stable Objective Objective Current Medications Medications (Trade) Dose Ordered Sig/Zelda Route PRN Reason Start Time Stop Time Status Last Admin Dose Admin Acetaminophen (Tylenol) 650 mg Q4H PRN NG Temp >100.5 05/31/20 21:45 06/30/20 21:44 06/10/20 05:03 Acetaminophen (Tylenol) 650 mg Q6H PRN NG Mild Pain (Pain Scale 1-3) 06/06/20 18:00 07/06/20 17:59 06/08/20 04:35 Ceftriaxone Sodium 1 gm/ Sodium Chloride 55 ml @ 110 mls/hr DAILY IVPB 05/29/20 09:00 06/11/20 23:59 06/09/20 08:40 Chlorhexidine Gluconate (Inna-Hex 2%) 1 applic DAILY@2000 TOPIC 05/30/20 20:00 08/28/20 19:59 06/09/20 20:08 Dextrose (Dextrose 50%) 25 ml Q30M PRN IV Hypoglycemia 06/05/20 10:45 09/03/20 10:44 Dextrose (Dextrose 50%) 50 ml Q30M PRN IV Hypoglycemia 06/05/20 10:45 09/03/20 10:44 Docusate Sodium (Colace) 100 mg Q12HR GT 06/07/20 21:00 07/07/20 20:59 06/09/20 20:08 Enoxaparin Sodium (Lovenox) 40 mg DAILY SUBQ 05/30/20 10:00 08/28/20 09:59 06/08/20 09:08 Fentanyl Citrate 250 ml @ 1 mls/hr Q24H IV 06/07/20 17:01 06/14/20 17:00 06/09/20 19:45 Insulin Aspart (NovoLOG) EVERY 6 HOURS SUBQ 06/07/20 00:00 09/03/20 11:59 06/10/20 05:51 Insulin Aspart (NovoLOG) 20 units EVERY 6 HOURS SUBQ 06/09/20 18:00 09/04/20 08:59 06/10/20 05:52 Methylprednisolone Sodium Succinate (Solu-MEDROL) 40 mg DAILY IVP 06/08/20 09:00 09/06/20 08:59 06/09/20 08:37 Midazolam HCl 100 mg/Sodium Chloride 200 ml @ 0 mls/hr Q24H PRN IV sedation 06/08/20 16:30 06/15/20 18:00 06/09/20 20:10 Pantoprazole (Protonix) 40 mg DAILY IVP 06/03/20 09:00 07/03/20 08:59 06/09/20 08:37 Polyethylene Glycol (Miralax) 17 gm BEDTIME GT 06/07/20 21:00 07/07/20 20:59 06/09/20 20:08 Sodium Chloride 1,000 ml @ 50 mls/hr Q20H IV 06/06/20 08:00 07/06/20 07:59 06/09/20 16:32 Last 24 Hour Vital Signs Date Time Temp Pulse Resp B/P (MAP) Pulse Ox O2 Delivery O2 Flow Rate FiO2 06/10/20 06:30 86 22 06/10/20 06:00 22 Mechanical Ventilator 90 06/10/20 06:00 22 118/86 Mechanical Ventilator 90 06/10/20 06:00 100.0 118 23 118/68 (85) 98 06/10/20 05:33 100.0 06/10/20 05:16 98 23 90 06/10/20 05:00 119 24 123/67 (85) 97 06/10/20 05:00 20 Mechanical Ventilator 90 06/10/20 05:00 20 106/56 Mechanical Ventilator 90 06/10/20 04:00 121 06/10/20 04:00 Mechanical Ventilator Mechanical Ventilator 06/10/20 04:00 90 06/10/20 04:00 20 90 06/10/20 04:00 20 112/60 Mechanical Ventilator 90 06/10/20 04:00 101.5 113 24 123/75 (91) 97 06/10/20 03:00 19 Mechanical Ventilator 90 06/10/20 03:00 19 108/60 Mechanical Ventilator 90 06/10/20 03:00 105 23 119/61 (80) 97 06/10/20 02:00 19 Mechanical Ventilator 90 06/10/20 02:00 19 105/59 Mechanical Ventilator 90 06/10/20 02:00 96 19 108/61 (77) 96 06/10/20 01:00 99 19 105/59 (74) 98 06/10/20 01:00 19 90 06/10/20 01:00 20 112/60 Mechanical Ventilator 90 06/10/20 00:31 99.5 06/10/20 00:00 90 06/10/20 00:00 Mechanical Ventilator Mechanical Ventilator 06/10/20 00:00 20 90 06/10/20 00:00 20 108/60 Mechanical Ventilator 90 06/10/20 00:00 99 06/10/20 00:00 101.0 103 20 108/60 (76) 97 06/09/20 23:30 111 21 90 06/09/20 23:00 104 20 107/56 (73) 99 06/09/20 23:00 20 Mechanical Ventilator 90 06/09/20 23:00 19 107/59 Mechanical Ventilator 90 06/09/20 22:00 108 19 112/60 (77) 98 06/09/20 22:00 22 Mechanical Ventilator 90 06/09/20 22:00 19 112/60 Mechanical Ventilator 90 06/09/20 21:00 119 22 122/61 (81) 97 06/09/20 21:00 20 Mechanical Ventilator 90 06/09/20 21:00 25 130/80 90 06/09/20 20:10 25 90 06/09/20 20:10 25 145/80 Mechanical Ventilator 90 06/09/20 20:00 112 06/09/20 20:00 114 24 119/72 (88) 96 06/09/20 20:00 19 Mechanical Ventilator 90 06/09/20 20:00 20 122/61 Mechanical Ventilator 90 06/09/20 20:00 Mechanical Ventilator Mechanical Ventilator 06/09/20 19:45 25 118/71 Mechanical Ventilator 90 06/09/20 19:02 111 20 90 06/09/20 19:00 24 Mechanical Ventilator 90 06/09/20 19:00 24 118/71 Mechanical Ventilator 90 06/09/20 19:00 119 24 118/71 (87) 97 06/09/20 18:00 111 30 127/69 (88) 97 06/09/20 18:00 30 Mechanical Ventilator 90 06/09/20 18:00 30 127/69 Mechanical Ventilator 90 06/09/20 17:00 116 27 135/65 (88) 95 06/09/20 17:00 30 Mechanical Ventilator 30.0 90 06/09/20 17:00 28 135/65 Mechanical Ventilator 90 06/09/20 16:00 90 06/09/20 16:00 109 06/09/20 16:00 Mechanical Ventilator Mechanical Ventilator 06/09/20 16:00 100.5 105 25 128/63 (84) 97 06/09/20 16:00 25 Mechanical Ventilator 15.0 90 06/09/20 16:00 25 128/63 Mechanical Ventilator 90 06/09/20 15:28 108 25 90 06/09/20 15:00 27 Mechanical Ventilator 90 06/09/20 15:00 27 123/64 Mechanical Ventilator 15.0 90 06/09/20 15:00 110 27 123/64 (83) 95 06/09/20 14:00 95 24 124/68 (86) 97 06/09/20 14:00 24 Mechanical Ventilator 100 06/09/20 14:00 24 124/68 Mechanical Ventilator 90 06/09/20 13:00 24 Mechanical Ventilator 15.0 90 06/09/20 13:00 24 124/66 Mechanical Ventilator 90 06/09/20 13:00 94 24 124/66 (85) 96 06/09/20 12:00 86 06/09/20 12:00 24 15.0 100 06/09/20 12:00 24 125/69 Mechanical Ventilator 100 06/09/20 12:00 98.9 86 24 125/69 (87) 94 06/09/20 12:00 Mechanical Ventilator Mechanical Ventilator 06/09/20 12:00 90 06/09/20 11:39 87 23 90 06/09/20 11:00 23 Mechanical Ventilator 100 06/09/20 11:00 23 110/68 Mechanical Ventilator 100 06/09/20 11:00 88 23 110/68 (82) 94 06/09/20 10:00 21 Mechanical Ventilator 15.0 100 06/09/20 10:00 20 123/67 Mechanical Ventilator 15.0 100 06/09/20 10:00 84 20 123/67 (85) 98 06/09/20 09:00 21 Mechanical Ventilator 15.0 75 06/09/20 09:00 21 121/77 Mechanical Ventilator 15.0 75 06/09/20 09:00 83 21 121/77 (92) 92 06/09/20 08:00 99.2 86 21 102/78 (86) 91 06/09/20 08:00 21 Mechanical Ventilator 15.0 75 06/09/20 08:00 21 102/78 Mechanical Ventilator 15.0 75 06/09/20 08:00 75 06/09/20 08:00 Mechanical Ventilator Mechanical Ventilator 06/09/20 08:00 88 06/09/20 07:28 91 25 75 06/09/20 07:00 21 75 06/09/20 07:00 21 126/58 Mechanical Ventilator 75 06/09/20 07:00 87 21 126/58 (80) 91 06/09/20 06:30 86 22 06/09/20 06:00 80 20 121/73 (89) 92 06/09/20 06:00 22 75 06/09/20 06:00 22 121/73 Mechanical Ventilator 75 06/09/20 05:00 19 Mechanical Ventilator 75 06/09/20 05:00 19 103/57 Mechanical Ventilator 75 06/09/20 05:00 82 19 103/57 (72) 93 06/09/20 04:00 99.5 86 19 112/64 (80) 94 06/09/20 04:00 Mechanical Ventilator Mechanical Ventilator 06/09/20 04:00 85 06/09/20 04:00 19 75 06/09/20 04:00 19 112/64 Mechanical Ventilator 75 06/09/20 04:00 75 06/09/20 03:16 91 20 75 06/09/20 03:00 20 Mechanical Ventilator 75 06/09/20 03:00 20 109/50 Mechanical Ventilator 75 06/09/20 03:00 88 20 109/50 (69) 93 06/09/20 02:00 20 Mechanical Ventilator 75 06/09/20 02:00 20 124/67 Mechanical Ventilator 75 06/09/20 02:00 93 20 124/67 (86) 97 06/09/20 01:29 99.6 06/09/20 01:00 86 19 131/65 (87) 95 06/09/20 01:00 20 75 06/09/20 01:00 20 131/77 Mechanical Ventilator 75 06/09/20 00:00 Mechanical Ventilator Mechanical Ventilator 06/09/20 00:00 97 06/09/20 00:00 100.6 85 21 126/74 (91) 95 06/09/20 00:00 75 06/09/20 00:00 20 75 06/09/20 00:00 20 131/65 Mechanical Ventilator 75 06/08/20 23:10 85 21 75 06/08/20 23:00 82 21 116/70 (85) 94 06/08/20 23:00 19 Mechanical Ventilator 75 06/08/20 23:00 19 132/69 Mechanical Ventilator 75 06/08/20 22:00 22 75 06/08/20 22:00 22 116/70 Mechanical Ventilator 75 06/08/20 22:00 84 22 111/60 (77) 93 06/08/20 21:00 88 23 110/64 (79) 91 06/08/20 21:00 23 75 06/08/20 21:00 23 110/64 Mechanical Ventilator 75 06/08/20 20:00 75 06/08/20 20:00 94 06/08/20 20:00 Mechanical Ventilator Mechanical Ventilator 06/08/20 20:00 23 Mechanical Ventilator 75 06/08/20 20:00 23 115/70 Mechanical Ventilator 75 06/08/20 20:00 98.5 91 23 115/70 (85) 93 06/08/20 19:03 91 24 75 06/08/20 19:00 24 Mechanical Ventilator 75 06/08/20 19:00 24 115/68 Mechanical Ventilator 75 06/08/20 19:00 24 Mechanical Ventilator 75 06/08/20 19:00 91 23 115/68 (84) 94 06/08/20 18:48 23 Mechanical Ventilator 75 06/08/20 18:38 23 130/75 Mechanical Ventilator 75 06/08/20 18:00 24 130/75 Mechanical Ventilator 75 06/08/20 18:00 24 Mechanical Ventilator 75 06/08/20 18:00 95 22 130/75 (93) 89 06/08/20 17:00 24 130/75 Mechanical Ventilator 75 06/08/20 17:00 24 Mechanical Ventilator 75 06/08/20 17:00 96 25 162/91 (114) 88 06/08/20 16:00 99.0 88 23 134/73 (93) 95 06/08/20 16:00 75 06/08/20 16:00 21 162/91 Mechanical Ventilator 75 06/08/20 16:00 24 Mechanical Ventilator 75 06/08/20 16:00 Mechanical Ventilator Mechanical Ventilator 06/08/20 16:00 90 06/08/20 15:00 85 22 112/64 (80) 98 06/08/20 15:00 24 112/64 Mechanical Ventilator 65 06/08/20 15:00 24 Mechanical Ventilator 65 06/08/20 15:00 96 24 75 06/08/20 14:00 22 121/68 Mechanical Ventilator 65 06/08/20 14:00 24 Mechanical Ventilator 65 06/08/20 14:00 88 22 121/68 (85) 99 06/08/20 13:00 23 Mechanical Ventilator 65 06/08/20 13:00 23 133/79 Mechanical Ventilator 65 06/08/20 13:00 24 Mechanical Ventilator 65 06/08/20 13:00 89 23 133/79 (97) 97 06/08/20 12:00 Mechanical Ventilator Mechanical Ventilator 06/08/20 12:00 65 06/08/20 12:00 99.8 90 23 123/71 (88) 95 06/08/20 12:00 24 Mechanical Ventilator 65 06/08/20 12:00 24 123/71 Mechanical Ventilator 65 06/08/20 12:00 24 Mechanical Ventilator 65 06/08/20 12:00 88 06/08/20 11:00 24 Mechanical Ventilator 65 06/08/20 11:00 24 Mechanical Ventilator 65 06/08/20 11:00 22 118/75 Mechanical Ventilator 65 06/08/20 11:00 24 Mechanical Ventilator 65 06/08/20 11:00 91 23 118/75 (89) 90 06/08/20 10:40 88 22 65 06/08/20 10:00 24 Mechanical Ventilator 65 06/08/20 10:00 23 Mechanical Ventilator 65 06/08/20 10:00 23 123/69 Mechanical Ventilator 65 06/08/20 10:00 24 Mechanical Ventilator 65 06/08/20 10:00 99 24 123/69 (87) 98 06/08/20 09:00 98 23 116/70 (85) 98 06/08/20 09:00 24 Mechanical Ventilator 65 06/08/20 09:00 24 Mechanical Ventilator 65 06/08/20 09:00 24 116/70 Mechanical Ventilator 65 06/08/20 09:00 24 Mechanical Ventilator 65 06/08/20 08:00 65 06/08/20 08:00 98.6 105 25 117/76 (90) 97 06/08/20 08:00 24 Mechanical Ventilator 65 06/08/20 08:00 24 Mechanical Ventilator 65 06/08/20 08:00 23 117/76 Mechanical Ventilator 65 06/08/20 08:00 24 Mechanical Ventilator 65 06/08/20 08:00 110 06/08/20 08:00 Mechanical Ventilator Mechanical Ventilator 06/08/20 07:13 24 118/65 Mechanical Ventilator 65 Intake and Output 06/09/20 06/10/20 19:00 07:00 Intake Total 1474 ml 989 ml Output Total 1150 ml 1100 ml Balance 324 ml -111 ml Free Water 100 ml 150 ml IV Total 654 ml 179 ml Tube Feeding 660 ml 660 ml Other 60 ml Output Urine Total 1150 ml 1100 ml # Bowel Movements 1 Labs Test 06/07/20 08:25 06/08/20 03:15 06/08/20 05:19 06/08/20 10:00 Arterial Blood pH 7.347 (7.350-7.450) 7.409 (7.350-7.450) Arterial Blood Partial Pressure CO2 75.9 mmHg (35.0-45.0) 62.6 mmHg (35.0-45.0) Arterial Blood Partial Pressure O2 185.0 mmHg (75.0-100.0) 59.0 mmHg (75.0-100.0) Arterial Blood HCO3 40.7 mmol/L (22.0-26.0) 38.7 mmol/L (22.0-26.0) Arterial Blood Oxygen Saturation 98.7 % (95-100) 90.2 % (95-100) Arterial Blood Base Excess 12.1 (-2-2) 11.8 (-2-2) Jeremiah Test Positive Positive White Blood Count 14.1 K/UL (4.8-10.8) Red Blood Count 3.90 M/UL (4.20-5.40) Hemoglobin 11.3 G/DL (12.0-16.0) Hematocrit 35.9 % (37.0-47.0) Mean Corpuscular Volume 92 FL (80-99) Mean Corpuscular Hemoglobin 29.0 PG (27.0-31.0) Mean Corpuscular Hemoglobin Concent 31.5 G/DL (32.0-36.0) Red Cell Distribution Width 14.7 % (11.6-14.8) Platelet Count 103 K/UL (150-450) Mean Platelet Volume 9.8 FL (6.5-10.1) Neutrophils (%) (Auto) % (45.0-75.0) Lymphocytes (%) (Auto) % (20.0-45.0) Monocytes (%) (Auto) % (1.0-10.0) Eosinophils (%) (Auto) % (0.0-3.0) Basophils (%) (Auto) % (0.0-2.0) Differential Total Cells Counted 100 Neutrophils % (Manual) 84 % (45-75) Lymphocytes % (Manual) 10 % (20-45) Monocytes % (Manual) 5 % (1-10) Eosinophils % (Manual) 1 % (0-3) Basophils % (Manual) 0 % (0-2) Band Neutrophils 0 % (0-8) Platelet Estimate Decreased Platelet Morphology Normal Anisocytosis 1+ Sodium Level 142 MMOL/L (136-145) Potassium Level 4.4 MMOL/L (3.5-5.1) Chloride Level 103 MMOL/L (98-107) Carbon Dioxide Level 39 MMOL/L (21-32) Anion Gap 0 mmol/L (5-15) Blood Urea Nitrogen 28 mg/dL (7-18) Creatinine 0.7 MG/DL (0.55-1.30) Estimat Glomerular Filtration Rate > 60 mL/min (>60) Glucose Level 162 MG/DL (74-106) Calcium Level 8.4 MG/DL (8.5-10.1) Total Bilirubin 0.9 MG/DL (0.2-1.0) Aspartate Amino Transf (AST/SGOT) 48 U/L (15-37) Alanine Aminotransferase (ALT/SGPT) 62 U/L (12-78) Alkaline Phosphatase 76 U/L (46-116) Total Protein 6.3 G/DL (6.4-8.2) Albumin 2.0 G/DL (3.4-5.0) Globulin 4.3 g/dL Albumin/Globulin Ratio 0.5 (1.0-2.7) Test 06/08/20 18:07 06/09/20 05:49 06/09/20 08:28 06/09/20 11:23 POC Whole Blood Glucose 308 MG/DL (74-106) White Blood Count 9.2 K/UL (4.8-10.8) Red Blood Count 3.76 M/UL (4.20-5.40) Hemoglobin 10.8 G/DL (12.0-16.0) Hematocrit 34.5 % (37.0-47.0) Mean Corpuscular Volume 92 FL (80-99) Mean Corpuscular Hemoglobin 28.7 PG (27.0-31.0) Mean Corpuscular Hemoglobin Concent 31.3 G/DL (32.0-36.0) Red Cell Distribution Width 14.1 % (11.6-14.8) Platelet Count 104 K/UL (150-450) Mean Platelet Volume 10.6 FL (6.5-10.1) Neutrophils (%) (Auto) % (45.0-75.0) Lymphocytes (%) (Auto) % (20.0-45.0) Monocytes (%) (Auto) % (1.0-10.0) Eosinophils (%) (Auto) % (0.0-3.0) Basophils (%) (Auto) % (0.0-2.0) Differential Total Cells Counted 100 Neutrophils % (Manual) 85 % (45-75) Lymphocytes % (Manual) 12 % (20-45) Monocytes % (Manual) 3 % (1-10) Eosinophils % (Manual) 0 % (0-3) Basophils % (Manual) 0 % (0-2) Band Neutrophils 0 % (0-8) Platelet Estimate Decreased Platelet Morphology Normal Anisocytosis 1+ Sodium Level 141 MMOL/L (136-145) Potassium Level 5.0 MMOL/L (3.5-5.1) Chloride Level 102 MMOL/L (98-107) Carbon Dioxide Level 35 MMOL/L (21-32) Anion Gap 4 mmol/L (5-15) Blood Urea Nitrogen 28 mg/dL (7-18) Creatinine 0.7 MG/DL (0.55-1.30) Estimat Glomerular Filtration Rate > 60 mL/min (>60) Glucose Level 175 MG/DL (74-106) Calcium Level 9.0 MG/DL (8.5-10.1) Total Bilirubin 0.8 MG/DL (0.2-1.0) Aspartate Amino Transf (AST/SGOT) 45 U/L (15-37) Alanine Aminotransferase (ALT/SGPT) 42 U/L (12-78) Alkaline Phosphatase 55 U/L (46-116) Total Protein 5.9 G/DL (6.4-8.2) Albumin 1.8 G/DL (3.4-5.0) Globulin 4.1 g/dL Albumin/Globulin Ratio 0.4 (1.0-2.7) Arterial Blood pH 7.360 (7.350-7.450) Arterial Blood Partial Pressure CO2 65.3 mmHg (35.0-45.0) Arterial Blood Partial Pressure O2 61.9 mmHg (75.0-100.0) Arterial Blood HCO3 36.1 mmol/L (22.0-26.0) Arterial Blood Oxygen Saturation 89.3 % (95-100) Arterial Blood Base Excess 8.6 (-2-2) Jeremiah Test Positive Height (Feet): 5 Height (Inches): 5.00 Weight (Pounds): 308 Objective GeNL: nv Pulm: vent++ CV: rrr Abd: soft, nt, nd Ext: no cce Myron Condon MD Jun 10, 2020 07:15
--- NOTE | 2020-06-10 07:35 | NUR ---
NURSE HAND-OFF REPORT: Latest Vital Signs: Temperature 100.0 , Pulse 118 , B/P 118 /58 , Respiratory Rate 20 , O2 SAT 98 , Mechanical Ventilator, O2 Flow Rate . Vital Sign Comment: EKG Rhythm: Sinus Rhythm Rhythm change?: N MD Notified?: - MD Response: Latest Meyers Fall Score: 70 Fall Risk: High Risk Safety Measures: Call light Within Reach, Bed Alarm Zone 1, Side Rails Side Rails x2, Bed position Low and Locked. Fall Precautions: Yellow Socks Yellow Gown Door Sign Patient Fall Education Report given to jason rn using sbar .
--- NOTE | 2020-06-10 07:36 | NUR ---
NURSE NOTES: Patient received from Geri Limon RN. Lightly sedated RASS -2. Bilat pupils equal and round 2 mm with sluggish rxn to light; gag reflex intact. 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 Generalized edema noted to extremities. cap refill less than 2 sec. Patient is orally intubated with a 7.5 ETT noted 23 cm at the lip with the following: AC mode rate of 15 TV 500 FiO2 80 % Peep 14. Lung vela noted diminished upon auscultation. Patient has OGT feeding as tolerated. Abdomen is round and soft w/ active bowel sounds to all quadrants. Lennon catheter noted draining yellow urine. Skin is intact. Pt has LINDA PICC with dry and intact dressing running fentanyl drip at 90 mcg/hr, versed gtt at 4 mg/hr, and NS at 50 cc/hr. [employer] restraints on, radial pulses palpable, skin to both wrists intact without redness. Bed in lowest position, alarm on, side rails up x 2, call light within reach. Airborne isolation observed. Will continue to monitor.
[2020-06-10] MEDS: cefTRIAXone 1 GM in NS 55 ML IVPB SCH (08:45)
[2020-06-10] MEDS: Solu-MEDROL 40mg Inj IVP SCH (08:45)
[2020-06-10] MEDS: Enoxaparin 40mg Inj SUBQ SCH (08:46)
[2020-06-10] MEDS: Pantoprazole Inj IVP SCH (08:46)
[2020-06-10] MEDS: Docusate 100mg/10ml Liq GT SCH ×2 (08:46→20:53)
--- NOTE | 2020-06-10 09:50 | NUR ---
NURSE NOTES: Dr. Nava at bedside. with orders to decrease mechanical ventilator PEEP setting from 14 to 12. Will inform RT/Nelson.
--- NOTE | 2020-06-10 10:03 | Pulmonology Progress Note ---
Subjective ROS Limited/Unobtainable: Yes Interval Events: Remains intubated Constitutional: Denies: fever HEENT: Repors: no symptoms Respiratory: Reports: no symptoms Cardiovascular: Reports: no symptoms Gastrointestinal/Abdominal: Reports: no symptoms Genitourinary: Reports: no symptoms Allergies: Coded Allergies: No Known Allergies (Unverified , 05/28/20) All Systems: reviewed and negative except above Objective Last 24 Hour Vital Signs Date Time Temp Pulse Resp B/P (MAP) Pulse Ox O2 Delivery O2 Flow Rate FiO2 06/10/20 09:43 80 06/10/20 09:00 117 5 121/58 (79) 99 06/10/20 08:05 123 06/10/20 08:00 Mechanical Ventilator Mechanical Ventilator 06/10/20 08:00 99.8 122 23 126/59 (81) 98 06/10/20 08:00 80 06/10/20 07:00 20 Mechanical Ventilator 90 06/10/20 07:00 20 118/58 Mechanical Ventilator 90 06/10/20 07:00 122 23 125/68 (87) 98 06/10/20 06:30 86 22 06/10/20 06:00 22 Mechanical Ventilator 90 06/10/20 06:00 22 118/86 Mechanical Ventilator 90 06/10/20 06:00 100.0 118 23 118/68 (85) 98 06/10/20 05:33 100.0 06/10/20 05:16 98 23 90 06/10/20 05:00 119 24 123/67 (85) 97 06/10/20 05:00 20 Mechanical Ventilator 90 06/10/20 05:00 20 106/56 Mechanical Ventilator 90 06/10/20 04:00 121 06/10/20 04:00 Mechanical Ventilator Mechanical Ventilator 06/10/20 04:00 90 06/10/20 04:00 20 90 06/10/20 04:00 20 112/60 Mechanical Ventilator 90 06/10/20 04:00 101.5 113 24 123/75 (91) 97 06/10/20 03:00 19 Mechanical Ventilator 90 06/10/20 03:00 19 108/60 Mechanical Ventilator 90 06/10/20 03:00 105 23 119/61 (80) 97 06/10/20 02:00 19 Mechanical Ventilator 90 06/10/20 02:00 19 105/59 Mechanical Ventilator 90 06/10/20 02:00 96 19 108/61 (77) 96 06/10/20 01:00 99 19 105/59 (74) 98 06/10/20 01:00 19 90 06/10/20 01:00 20 112/60 Mechanical Ventilator 90 06/10/20 00:31 99.5 06/10/20 00:00 90 06/10/20 00:00 Mechanical Ventilator Mechanical Ventilator 06/10/20 00:00 20 90 06/10/20 00:00 20 108/60 Mechanical Ventilator 90 06/10/20 00:00 99 06/10/20 00:00 101.0 103 20 108/60 (76) 97 06/09/20 23:30 111 21 90 06/09/20 23:00 104 20 107/56 (73) 99 06/09/20 23:00 20 Mechanical Ventilator 90 06/09/20 23:00 19 107/59 Mechanical Ventilator 90 06/09/20 22:00 108 19 112/60 (77) 98 06/09/20 22:00 22 Mechanical Ventilator 90 06/09/20 22:00 19 112/60 Mechanical Ventilator 90 06/09/20 21:00 119 22 122/61 (81) 97 06/09/20 21:00 20 Mechanical Ventilator 90 06/09/20 21:00 25 130/80 90 06/09/20 20:10 25 90 06/09/20 20:10 25 145/80 Mechanical Ventilator 90 06/09/20 20:00 112 06/09/20 20:00 114 24 119/72 (88) 96 06/09/20 20:00 19 Mechanical Ventilator 90 06/09/20 20:00 20 122/61 Mechanical Ventilator 90 06/09/20 20:00 Mechanical Ventilator Mechanical Ventilator 06/09/20 19:45 25 118/71 Mechanical Ventilator 90 06/09/20 19:02 111 20 90 06/09/20 19:00 24 Mechanical Ventilator 90 06/09/20 19:00 24 118/71 Mechanical Ventilator 90 06/09/20 19:00 119 24 118/71 (87) 97 06/09/20 18:00 111 30 127/69 (88) 97 06/09/20 18:00 30 Mechanical Ventilator 90 06/09/20 18:00 30 127/69 Mechanical Ventilator 90 06/09/20 17:00 116 27 135/65 (88) 95 06/09/20 17:00 30 Mechanical Ventilator 30.0 90 06/09/20 17:00 28 135/65 Mechanical Ventilator 90 06/09/20 16:00 90 06/09/20 16:00 109 06/09/20 16:00 Mechanical Ventilator Mechanical Ventilator 06/09/20 16:00 100.5 105 25 128/63 (84) 97 06/09/20 16:00 25 Mechanical Ventilator 15.0 90 06/09/20 16:00 25 128/63 Mechanical Ventilator 90 06/09/20 15:28 108 25 90 06/09/20 15:00 27 Mechanical Ventilator 90 06/09/20 15:00 27 123/64 Mechanical Ventilator 15.0 90 06/09/20 15:00 110 27 123/64 (83) 95 06/09/20 14:00 95 24 124/68 (86) 97 06/09/20 14:00 24 Mechanical Ventilator 100 06/09/20 14:00 24 124/68 Mechanical Ventilator 90 06/09/20 13:00 24 Mechanical Ventilator 15.0 90 06/09/20 13:00 24 124/66 Mechanical Ventilator 90 06/09/20 13:00 94 24 124/66 (85) 96 06/09/20 12:00 86 06/09/20 12:00 24 15.0 100 06/09/20 12:00 24 125/69 Mechanical Ventilator 100 06/09/20 12:00 98.9 86 24 125/69 (87) 94 06/09/20 12:00 Mechanical Ventilator Mechanical Ventilator 06/09/20 12:00 90 06/09/20 11:39 87 23 90 06/09/20 11:00 23 Mechanical Ventilator 100 06/09/20 11:00 23 110/68 Mechanical Ventilator 100 06/09/20 11:00 88 23 110/68 (82) 94 06/09/20 10:00 21 Mechanical Ventilator 15.0 100 06/09/20 10:00 20 123/67 Mechanical Ventilator 15.0 100 06/09/20 10:00 84 20 123/67 (85) 98 Intake and Output 06/09/20 06/10/20 19:00 07:00 Intake Total 1474 ml 1666 ml Output Total 1150 ml 1150 ml Balance 324 ml 516 ml Free Water 100 ml 150 ml IV Total 654 ml 796 ml Tube Feeding 660 ml 720 ml Other 60 ml Output Urine Total 1150 ml 1150 ml # Bowel Movements 1 General Appearance: no acute distress HEENT: normocephalic Respiratory: chest wall non-tender Cardiovascular: normal peripheral pulses Abdomen: normal bowel sounds Laboratory Tests 06/09/20 11:23: POC Whole Blood Glucose [Pending] Current Medications Medications (Trade) Dose Ordered Sig/Zelda Route PRN Reason Start Time Stop Time Status Last Admin Dose Admin Acetaminophen (Tylenol) 650 mg Q4H PRN NG Temp >100.5 05/31/20 21:45 06/30/20 21:44 06/10/20 05:03 Acetaminophen (Tylenol) 650 mg Q6H PRN NG Mild Pain (Pain Scale 1-3) 06/06/20 18:00 07/06/20 17:59 06/08/20 04:35 Ceftriaxone Sodium 1 gm/ Sodium Chloride 55 ml @ 110 mls/hr DAILY IVPB 05/29/20 09:00 06/15/20 08:59 06/10/20 08:45 Chlorhexidine Gluconate (Inna-Hex 2%) 1 applic DAILY@2000 TOPIC 05/30/20 20:00 08/28/20 19:59 06/09/20 20:08 Dextrose (Dextrose 50%) 25 ml Q30M PRN IV Hypoglycemia 06/05/20 10:45 09/03/20 10:44 Dextrose (Dextrose 50%) 50 ml Q30M PRN IV Hypoglycemia 06/05/20 10:45 09/03/20 10:44 Docusate Sodium (Colace) 100 mg Q12HR GT 06/07/20 21:00 07/07/20 20:59 06/09/20 20:08 Enoxaparin Sodium (Lovenox) 40 mg DAILY SUBQ 05/30/20 10:00 08/28/20 09:59 06/08/20 09:08 Fentanyl Citrate 250 ml @ 1 mls/hr Q24H IV 06/07/20 17:01 06/14/20 17:00 06/09/20 19:45 Insulin Aspart (NovoLOG) EVERY 6 HOURS SUBQ 06/07/20 00:00 09/03/20 11:59 06/10/20 05:51 Insulin Aspart (NovoLOG) 20 units EVERY 6 HOURS SUBQ 06/09/20 18:00 09/04/20 08:59 06/10/20 05:52 Methylprednisolone Sodium Succinate (Solu-MEDROL) 40 mg DAILY IVP 06/08/20 09:00 09/06/20 08:59 06/10/20 08:45 Midazolam HCl 100 mg/Sodium Chloride 200 ml @ 0 mls/hr Q24H PRN IV sedation 06/08/20 16:30 06/15/20 18:00 06/09/20 20:10 Pantoprazole (Protonix) 40 mg DAILY IVP 06/03/20 09:00 07/03/20 08:59 06/10/20 08:46 Polyethylene Glycol (Miralax) 17 gm BEDTIME GT 06/07/20 21:00 07/07/20 20:59 06/09/20 20:08 Sodium Chloride 1,000 ml @ 50 mls/hr Q20H IV 06/06/20 08:00 07/06/20 07:59 06/09/20 16:32 Assessment/Plan Assessment/Plan 1. COVID-19 pneumonia -Intubated 05/28/20 - We will continue broad-spectrum antibiotics. - On solumedrol -On Rocephin -Continue monitoring SaO2 and keep it >92% -Continue PEEP 16; will decrease to 12 -> 10 as tolerated - Peak airway pressures high; approx 63 - FiO2 100% -> 90%; will attempt to decrease - -will continue OGT feeding -Continue sedation -Need to keep patient completely sedated. 2. Hyponatremia -Per primary MD 3. Elevated inflammatory markers -Continue Lovenox - check D dimer; if higher; will increase Lovenox dose; noted platelet count borderline low Javier Nava MD Jun 10, 2020 10:03
--- NOTE | 2020-06-10 10:33 | NUR ---
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 IS: Versed GTT Fentanyl GTT Solu-Medrol IVP q 24h Rocephin IV q 24h Lovenox SQ QD Protonix IVP QD ICU status
--- NOTE | 2020-06-10 11:32 | Infectious Diseases Prog Note ---
Assessment/Plan Assessment/Plan antibiotics : ceftriaxone A 1. covid 19 pneumonia on 80% Fi O2 with 97 % saturation s/p remdesivir 2. respiratory failure P 1. continue ceftriaxone 2. continue solumedrol taper dose 3. continue isolation Subjective ROS Limited/Unobtainable: Yes Allergies: Coded Allergies: No Known Allergies (Unverified , 05/28/20) Objective Last 24 Hour Vital Signs Date Time Temp Pulse Resp B/P (MAP) Pulse Ox O2 Delivery O2 Flow Rate FiO2 06/10/20 11:00 107 20 124/70 (88) 97 06/10/20 11:00 20 Mechanical Ventilator 80 06/10/20 11:00 20 124/70 Mechanical Ventilator 80 06/10/20 10:00 16 Mechanical Ventilator 80 06/10/20 10:00 16 116/64 Mechanical Ventilator 80 06/10/20 10:00 109 16 116/64 (81) 97 06/10/20 09:43 80 06/10/20 09:00 15 Mechanical Ventilator 80 06/10/20 09:00 15 121/58 Mechanical Ventilator 80 06/10/20 09:00 117 15 121/58 (79) 99 06/10/20 08:05 123 06/10/20 08:00 Mechanical Ventilator Mechanical Ventilator 06/10/20 08:00 99.8 122 23 126/59 (81) 98 06/10/20 08:00 23 Mechanical Ventilator 80 06/10/20 08:00 23 126/59 Mechanical Ventilator 80 06/10/20 08:00 80 06/10/20 07:00 20 Mechanical Ventilator 90 06/10/20 07:00 20 118/58 Mechanical Ventilator 90 06/10/20 07:00 122 23 125/68 (87) 98 06/10/20 06:30 86 22 06/10/20 06:00 22 Mechanical Ventilator 90 06/10/20 06:00 22 118/86 Mechanical Ventilator 90 06/10/20 06:00 100.0 118 23 118/68 (85) 98 06/10/20 05:33 100.0 06/10/20 05:16 98 23 90 06/10/20 05:00 119 24 123/67 (85) 97 06/10/20 05:00 20 Mechanical Ventilator 90 06/10/20 05:00 20 106/56 Mechanical Ventilator 90 06/10/20 04:00 121 06/10/20 04:00 Mechanical Ventilator Mechanical Ventilator 06/10/20 04:00 90 06/10/20 04:00 20 90 06/10/20 04:00 20 112/60 Mechanical Ventilator 90 06/10/20 04:00 101.5 113 24 123/75 (91) 97 06/10/20 03:00 19 Mechanical Ventilator 90 06/10/20 03:00 19 108/60 Mechanical Ventilator 90 06/10/20 03:00 105 23 119/61 (80) 97 06/10/20 02:00 19 Mechanical Ventilator 90 06/10/20 02:00 19 105/59 Mechanical Ventilator 90 06/10/20 02:00 96 19 108/61 (77) 96 06/10/20 01:00 99 19 105/59 (74) 98 06/10/20 01:00 19 90 06/10/20 01:00 20 112/60 Mechanical Ventilator 90 06/10/20 00:31 99.5 06/10/20 00:00 90 06/10/20 00:00 Mechanical Ventilator Mechanical Ventilator 06/10/20 00:00 20 90 06/10/20 00:00 20 108/60 Mechanical Ventilator 90 06/10/20 00:00 99 06/10/20 00:00 101.0 103 20 108/60 (76) 97 06/09/20 23:30 111 21 90 06/09/20 23:00 104 20 107/56 (73) 99 06/09/20 23:00 20 Mechanical Ventilator 90 06/09/20 23:00 19 107/59 Mechanical Ventilator 90 06/09/20 22:00 108 19 112/60 (77) 98 06/09/20 22:00 22 Mechanical Ventilator 90 06/09/20 22:00 19 112/60 Mechanical Ventilator 90 06/09/20 21:00 119 22 122/61 (81) 97 06/09/20 21:00 20 Mechanical Ventilator 90 06/09/20 21:00 25 130/80 90 06/09/20 20:10 25 90 06/09/20 20:10 25 145/80 Mechanical Ventilator 90 06/09/20 20:00 112 06/09/20 20:00 114 24 119/72 (88) 96 06/09/20 20:00 19 Mechanical Ventilator 90 06/09/20 20:00 20 122/61 Mechanical Ventilator 90 06/09/20 20:00 Mechanical Ventilator Mechanical Ventilator 06/09/20 19:45 25 118/71 Mechanical Ventilator 90 06/09/20 19:02 111 20 90 06/09/20 19:00 24 Mechanical Ventilator 90 06/09/20 19:00 24 118/71 Mechanical Ventilator 90 06/09/20 19:00 119 24 118/71 (87) 97 06/09/20 18:00 111 30 127/69 (88) 97 06/09/20 18:00 30 Mechanical Ventilator 90 06/09/20 18:00 30 127/69 Mechanical Ventilator 90 06/09/20 17:00 116 27 135/65 (88) 95 06/09/20 17:00 30 Mechanical Ventilator 30.0 90 06/09/20 17:00 28 135/65 Mechanical Ventilator 90 06/09/20 16:00 90 06/09/20 16:00 109 06/09/20 16:00 Mechanical Ventilator Mechanical Ventilator 06/09/20 16:00 100.5 105 25 128/63 (84) 97 06/09/20 16:00 25 Mechanical Ventilator 15.0 90 06/09/20 16:00 25 128/63 Mechanical Ventilator 90 06/09/20 15:28 108 25 90 06/09/20 15:00 27 Mechanical Ventilator 90 06/09/20 15:00 27 123/64 Mechanical Ventilator 15.0 90 06/09/20 15:00 110 27 123/64 (83) 95 06/09/20 14:00 95 24 124/68 (86) 97 06/09/20 14:00 24 Mechanical Ventilator 100 06/09/20 14:00 24 124/68 Mechanical Ventilator 90 06/09/20 13:00 24 Mechanical Ventilator 15.0 90 06/09/20 13:00 24 124/66 Mechanical Ventilator 90 06/09/20 13:00 94 24 124/66 (85) 96 06/09/20 12:00 86 06/09/20 12:00 24 15.0 100 06/09/20 12:00 24 125/69 Mechanical Ventilator 100 06/09/20 12:00 98.9 86 24 125/69 (87) 94 06/09/20 12:00 Mechanical Ventilator Mechanical Ventilator 06/09/20 12:00 90 06/09/20 11:39 87 23 90 Height (Feet): 5 Height (Inches): 5.00 Weight (Pounds): 308 HEENT: other - intubated Current Medications Medications (Trade) Dose Ordered Sig/Zelda Route PRN Reason Start Time Stop Time Status Last Admin Dose Admin Acetaminophen (Tylenol) 650 mg Q4H PRN NG Temp >100.5 05/31/20 21:45 06/30/20 21:44 06/10/20 05:03 Acetaminophen (Tylenol) 650 mg Q6H PRN NG Mild Pain (Pain Scale 1-3) 06/06/20 18:00 07/06/20 17:59 06/08/20 04:35 Ceftriaxone Sodium 1 gm/ Sodium Chloride 55 ml @ 110 mls/hr DAILY IVPB 05/29/20 09:00 06/15/20 08:59 06/10/20 08:45 Chlorhexidine Gluconate (Inna-Hex 2%) 1 applic DAILY@2000 TOPIC 05/30/20 20:00 08/28/20 19:59 06/09/20 20:08 Dextrose (Dextrose 50%) 25 ml Q30M PRN IV Hypoglycemia 06/05/20 10:45 09/03/20 10:44 Dextrose (Dextrose 50%) 50 ml Q30M PRN IV Hypoglycemia 06/05/20 10:45 09/03/20 10:44 Docusate Sodium (Colace) 100 mg Q12HR GT 06/07/20 21:00 07/07/20 20:59 06/09/20 20:08 Enoxaparin Sodium (Lovenox) 40 mg DAILY SUBQ 05/30/20 10:00 08/28/20 09:59 06/08/20 09:08 Fentanyl Citrate 250 ml @ 1 mls/hr Q24H IV 06/07/20 17:01 06/14/20 17:00 06/09/20 19:45 Insulin Aspart (NovoLOG) EVERY 6 HOURS SUBQ 06/07/20 00:00 09/03/20 11:59 06/10/20 05:51 Insulin Aspart (NovoLOG) 20 units EVERY 6 HOURS SUBQ 06/09/20 18:00 09/04/20 08:59 06/10/20 05:52 Methylprednisolone Sodium Succinate (Solu-MEDROL) 40 mg DAILY IVP 06/08/20 09:00 09/06/20 08:59 06/10/20 08:45 Midazolam HCl 100 mg/Sodium Chloride 200 ml @ 0 mls/hr Q24H PRN IV sedation 06/08/20 16:30 06/15/20 18:00 06/09/20 20:10 Pantoprazole (Protonix) 40 mg DAILY IVP 06/03/20 09:00 07/03/20 08:59 06/10/20 08:46 Polyethylene Glycol (Miralax) 17 gm BEDTIME GT 06/07/20 21:00 07/07/20 20:59 06/09/20 20:08 Sodium Chloride 1,000 ml @ 50 mls/hr Q20H IV 06/06/20 08:00 07/06/20 07:59 06/09/20 16:32 Fili Mcelroy MD Jun 10, 2020 11:32
[2020-06-10] MEDS: fentaNYL 2500mcg/NS 250ml 250 ML IV SCH ×2 (16:20→20:21)
--- NOTE | 2020-06-10 19:15 | NUR ---
NURSE HAND-OFF REPORT: Latest Vital Signs: Temperature 99.1 , Pulse 99 , B/P 109 /60 , Respiratory Rate 19 , O2 SAT 97 , Mechanical Ventilator, O2 Flow Rate . Vital Sign Comment: RASS -2 EKG Rhythm: Sinus Rhythm Rhythm change?: N Latest Meyers Fall Score: 70 Fall Risk: High Risk Safety Measures: Call light Within Reach, Bed Alarm Zone 1, Side Rails Side Rails x2, Bed position Low and Locked. Fall Precautions: Yellow Socks Yellow Gown Door Sign Patient Fall Education Report given to Geri Limon RN.
--- NOTE | 2020-06-10 19:19 | NUR ---
NURSE NOTES: received report from mo rn pt orally intubated -vent o2 sat 98% SAT WITH FENT AND VERSED DRIP -2ROSSTOLERATING TUBE FEEDING NO RESIDUAL REPOSITION AND SUCTION ON GRISEL SOFT RESTRAINT NON COMPLAINT IV INFUSING WELL SITE DRESSING DRY AND INTACT URINARY OUTPUT GOOG
[2020-06-10] MEDS ORDERED: Tubing IV Secondary IV ONE (20:05)
[2020-06-10] MEDS: Dyna-Hex 2% Top Sol 2oz TOPIC SCH (20:09)
[2020-06-10] MEDS: Midazolam HCl 50mg/10ml vial 100 MG in NS 180 ML IV PRN (20:27)
[2020-06-10] MEDS: Miralax 17gm pkt GT SCH (20:54)
--- NOTE | 2020-06-10 21:59 | General Progress Note ---
Subjective ROS Limited/Unobtainable: Yes Allergies: Coded Allergies: No Known Allergies (Unverified , 05/28/20) Objective Last 24 Hour Vital Signs Date Time Temp Pulse Resp B/P (MAP) Pulse Ox O2 Delivery O2 Flow Rate FiO2 06/10/20 20:27 20 80 06/10/20 20:21 20 98/53 Mechanical Ventilator 80 06/10/20 19:30 101 19 70 06/10/20 19:00 99 19 109/60 (76) 97 06/10/20 19:00 19 Mechanical Ventilator 80 06/10/20 19:00 19 109/60 Mechanical Ventilator 80 06/10/20 18:00 90 14 103/52 (69) 98 06/10/20 18:00 14 Mechanical Ventilator 80 06/10/20 18:00 14 103/52 Mechanical Ventilator 80 06/10/20 17:00 96 18 114/65 (81) 98 06/10/20 17:00 18 Endotracheal Tube 80 06/10/20 17:00 18 114/65 Mechanical Ventilator 80 06/10/20 16:00 99.1 93 14 116/63 (80) 98 06/10/20 16:00 14 Mechanical Ventilator 80 06/10/20 16:00 14 116/63 Mechanical Ventilator 80 06/10/20 16:00 80 06/10/20 16:00 Mechanical Ventilator Mechanical Ventilator 06/10/20 15:25 94 06/10/20 15:00 97 18 116/67 (83) 98 06/10/20 15:00 18 Mechanical Ventilator 80 06/10/20 15:00 18 116/67 Mechanical Ventilator 80 06/10/20 14:00 20 Mechanical Ventilator 80 06/10/20 14:00 20 114/68 Mechanical Ventilator 80 06/10/20 14:00 98 20 114/68 (83) 98 06/10/20 13:15 97 19 80 06/10/20 13:00 99 16 115/68 (84) 98 06/10/20 13:00 16 Mechanical Ventilator 80 06/10/20 13:00 16 115/68 Mechanical Ventilator 80 06/10/20 12:19 100 06/10/20 12:00 Mechanical Ventilator Mechanical Ventilator 06/10/20 12:00 20 Mechanical Ventilator 80 06/10/20 12:00 20 123/66 Mechanical Ventilator 80 06/10/20 12:00 98.9 104 20 123/66 (85) 98 06/10/20 12:00 80 06/10/20 11:00 107 20 124/70 (88) 97 06/10/20 11:00 20 Mechanical Ventilator 80 06/10/20 11:00 20 124/70 Mechanical Ventilator 80 06/10/20 10:00 16 Mechanical Ventilator 80 06/10/20 10:00 16 116/64 Mechanical Ventilator 80 06/10/20 10:00 109 16 116/64 (81) 97 06/10/20 09:43 80 06/10/20 09:00 15 Mechanical Ventilator 80 06/10/20 09:00 15 121/58 Mechanical Ventilator 80 06/10/20 09:00 117 15 121/58 (79) 99 06/10/20 08:05 123 06/10/20 08:00 Mechanical Ventilator Mechanical Ventilator 06/10/20 08:00 99.8 122 23 126/59 (81) 98 06/10/20 08:00 23 Mechanical Ventilator 80 06/10/20 08:00 23 126/59 Mechanical Ventilator 80 06/10/20 08:00 80 06/10/20 07:25 115 21 80 06/10/20 07:00 20 Mechanical Ventilator 90 06/10/20 07:00 20 118/58 Mechanical Ventilator 90 06/10/20 07:00 122 23 125/68 (87) 98 06/10/20 06:30 86 22 06/10/20 06:00 22 Mechanical Ventilator 90 06/10/20 06:00 22 118/86 Mechanical Ventilator 90 06/10/20 06:00 100.0 118 23 118/68 (85) 98 06/10/20 05:33 100.0 06/10/20 05:16 98 23 90 06/10/20 05:00 119 24 123/67 (85) 97 06/10/20 05:00 20 Mechanical Ventilator 90 06/10/20 05:00 20 106/56 Mechanical Ventilator 90 06/10/20 04:00 121 06/10/20 04:00 Mechanical Ventilator Mechanical Ventilator 06/10/20 04:00 90 06/10/20 04:00 20 90 06/10/20 04:00 20 112/60 Mechanical Ventilator 90 06/10/20 04:00 101.5 113 24 123/75 (91) 97 06/10/20 03:00 19 Mechanical Ventilator 90 06/10/20 03:00 19 108/60 Mechanical Ventilator 90 06/10/20 03:00 105 23 119/61 (80) 97 06/10/20 02:00 19 Mechanical Ventilator 90 06/10/20 02:00 19 105/59 Mechanical Ventilator 90 06/10/20 02:00 96 19 108/61 (77) 96 06/10/20 01:00 99 19 105/59 (74) 98 06/10/20 01:00 19 90 06/10/20 01:00 20 112/60 Mechanical Ventilator 90 06/10/20 00:31 99.5 06/10/20 00:00 90 06/10/20 00:00 Mechanical Ventilator Mechanical Ventilator 06/10/20 00:00 20 90 06/10/20 00:00 20 108/60 Mechanical Ventilator 90 06/10/20 00:00 99 06/10/20 00:00 101.0 103 20 108/60 (76) 97 06/09/20 23:30 111 21 90 06/09/20 23:00 104 20 107/56 (73) 99 06/09/20 23:00 20 Mechanical Ventilator 90 06/09/20 23:00 19 107/59 Mechanical Ventilator 90 06/09/20 22:00 108 19 112/60 (77) 98 06/09/20 22:00 22 Mechanical Ventilator 90 06/09/20 22:00 19 112/60 Mechanical Ventilator 90 Intake and Output 06/09/20 06/10/20 19:00 07:00 Intake Total 1474 ml 1666 ml Output Total 1150 ml 1150 ml Balance 324 ml 516 ml Free Water 100 ml 150 ml IV Total 654 ml 796 ml Tube Feeding 660 ml 720 ml Other 60 ml Output Urine Total 1150 ml 1150 ml # Bowel Movements 1 Height (Feet): 5 Height (Inches): 5.00 Weight (Pounds): 308 Assessment/Plan Problem List: (1) Hypoxia ICD Codes: R09.02 - Hypoxemia SNOMED: 028871980 (2) Respiratory failure ICD Codes: J96.90 - Respiratory failure, unspecified, unspecified whether with hypoxia or hypercapnia SNOMED: 757871530 (3) Respiratory distress ICD Codes: R06.03 - Acute respiratory distress; J12.82 - Pneumonia due to coronavirus disease 2019 SNOMED: 892852528 (4) Pneumonia due to COVID-19 virus ICD Codes: U07.1 - COVID-19; J12.82 - Pneumonia due to coronavirus disease 2019 SNOMED: 392438059782117144 (5) Diabetes mellitus out of control ICD Codes: E11.65 - Type 2 diabetes mellitus with hyperglycemia SNOMED: 72739026, 519591112 Status: progressing, unchanged Assessment/Plan: niddm covid + s/p hypoxica resp insuff no wheezing sepsis pna Jamilah Kendrick MD Jun 10, 2020 21:59
[2020-06-11] VITALS (32 sets, daily range): BP systolic 93–142; BP diastolic 47–81
--- NOTE | 2020-06-11 | NUR ---
NURSE NOTES: bs 130 no acute resp distress noted
[2020-06-11] MEDS: NovoLOG Insulin Flexpen SUBQ SCH ×8 (00:12→17:10)
[2020-06-11] MEDS: Acetaminophen 650mg/20.3ml NG PRN ×4 (03:17→18:14)
--- NOTE | 2020-06-11 04:00 | NUR ---
NURSE NOTES: reposition and suction
--- NOTE | 2020-06-11 06:00 | NUR ---
NURSE NOTES: temp 101 cooling measures done and tyl 65o mg given at o400
[2020-06-11 06:52] LABS: BASOPHILS % (AUTO) 0.9 % (0.0-2.0); EOSINOPHILS % (AUTO) 2.9 % (0.0-3.0); HEMATOCRIT 31.7 % (37.0-47.0); HEMOGLOBIN 9.8 G/DL (12.0-16.0); LYMPHOCYTES % (AUTO) 19.3 % (20.0-45.0); MEAN CORPUSCULAR VOLUME 94 FL (80-99); MONOCYTES % (AUTO) 2.4 % (1.0-10.0); NEUTROPHILS % (AUTO) 74.6 % (45.0-75.0); PLATELET COUNT 156 K/UL (150-450); RED BLOOD COUNT 3.39 M/UL (4.20-5.40); RED CELL DISTRIBUTION WIDTH 15.4 % (11.6-14.8); WHITE BLOOD COUNT 8.5 K/UL (4.8-10.8)
--- NOTE | 2020-06-11 07:23 | NUR ---
NURSE NOTES: Dr. Condon at bedside. Made aware regarding hematuria, and that scheduled lovenox is been held for 2 days already.
--- NOTE | 2020-06-11 07:25 | NUR ---
RESPIRATORY NOTE: PT received on ACVC: 15, 500, 70%, +12. Alarms are on and audible. Vent circuit is secure and out of the way. Airway is secure and patent. Bilateral soft restrains securely in place. No s/s of respiratory distress noted at this time. Will continue to closely monitor.
[2020-06-11 07:41] LABS: ANION GAP 1 mmol/L (5-15); BLOOD UREA NITROGEN 25 mg/dL (7-18); CALCIUM 8.9 MG/DL (8.5-10.1); CARBON DIOXIDE 39 MMOL/L (21-32); CHLORIDE 103 MMOL/L (98-107); CREATININE 0.7 MG/DL (0.55-1.30); POTASSIUM 4.5 MMOL/L (3.5-5.1); SODIUM 143 MMOL/L (136-145)
--- NOTE | 2020-06-11 07:41 | NUR ---
NURSE HAND-OFF REPORT: Latest Vital Signs: Temperature 101.0 , Pulse 115 , B/P 122 /62 , Respiratory Rate 22 , O2 SAT 93 , Mechanical Ventilator, O2 Flow Rate . Vital Sign Comment: EKG Rhythm: Sinus Tachycardia Rhythm change?: N MD Notified?: - MD Response: Latest Meyers Fall Score: 70 Fall Risk: High Risk Safety Measures: Call light Within Reach, Bed Alarm Zone 1, Side Rails Side Rails x2, Bed position Low and Locked. Fall Precautions: Yellow Socks Yellow Gown Door Sign Patient Fall Education Report given to janie gracia using martha
--- NOTE | 2020-06-11 07:42 | NUR ---
NURSE NOTES: Patient received from Geri Limon RN. Lightly sedated RASS -2. Bilat pupils equal and round 2 mm with sluggish rxn to light; gag reflex intact. Patient is SR to manager cardiac cath with 2+ radial and dorsalis pedis pulses. Generalized edema noted to extremities. cap refill less than 2 sec. Patient is orally intubated with a 7.5 ETT noted 23 cm at the lip with the following: AC mode rate of 15 TV 500 FiO2 70 % Peep 12. Lung vela noted diminished upon auscultation. Patient has OGT feeding as tolerated. Abdomen is round and soft w/ active bowel sounds to all quadrants. Lennon catheter noted draining yellow urine. Skin is intact. Pt has LINDA PICC with dry and intact dressing running fentanyl drip at 90 mcg/hr, versed gtt at 4 mg/hr, and NS at 50 cc/hr. Bilateral soft wrist restraints on, radial pulses palpable, skin to both wrists intact without redness. Bed in lowest position, alarm on, side rails up x 2, call light within reach. Airborne isolation observed. Will continue to monitor.
--- NOTE | 2020-06-11 08:03 | General Progress Note ---
Subjective ROS Limited/Unobtainable: Yes Allergies: Coded Allergies: No Known Allergies (Unverified , 05/28/20) Subjective events noted interval notes reviewed glucose values improved Item Value Date Time Bedside Blood Glucose 130 mg/dl H 06/11/20 0600 Bedside Blood Glucose 130 mg/dl H 06/11/20 0012 Bedside Blood Glucose 228 mg/dl H 06/10/20 1754 Bedside Blood Glucose 208 mg/dl H 06/10/20 1158 Bedside Blood Glucose 196 mg/dl H 06/10/20 0600 Objective Last 24 Hour Vital Signs Date Time Temp Pulse Resp B/P (MAP) Pulse Ox O2 Delivery O2 Flow Rate FiO2 06/11/20 07:00 22 70 06/11/20 07:00 22 122/62 Mechanical Ventilator 70 06/11/20 07:00 115 22 122/63 (82) 06/11/20 06:30 86 22 06/11/20 06:00 101.0 109 21 120/61 (80) 93 06/11/20 06:00 22 Mechanical Ventilator 80 06/11/20 06:00 20 120/68 Mechanical Ventilator 80 06/11/20 05:00 21 80 06/11/20 05:00 20 108/57 Mechanical Ventilator 80 06/11/20 05:00 108 21 97/57 (70) 95 06/11/20 05:00 103 21 97/57 (70) 95 06/11/20 04:00 80 06/11/20 04:00 20 Mechanical Ventilator 80 06/11/20 04:00 20 101/47 Mechanical Ventilator 80 06/11/20 04:00 Mechanical Ventilator Mechanical Ventilator 06/11/20 04:00 101 06/11/20 04:00 101.5 94 20 101/47 (65) 95 06/11/20 03:51 103 20 70 06/11/20 03:47 101.0 06/11/20 03:00 105 21 108/57 (74) 95 06/11/20 03:00 21 Mechanical Ventilator 80 06/11/20 03:00 21 108/57 Mechanical Ventilator 80 06/11/20 02:00 107 20 106/55 (72) 95 06/11/20 02:00 21 114/61 Mechanical Ventilator 80 06/11/20 01:00 111 19 98/58 (71) 96 06/11/20 01:00 22 Mechanical Ventilator 06/11/20 01:00 20 103/60 Mechanical Ventilator 80 06/11/20 00:00 80 06/11/20 00:00 Mechanical Ventilator Mechanical Ventilator 06/11/20 00:00 22 Mechanical Ventilator 100 06/11/20 00:00 20 100/60 Mechanical Ventilator 100 06/11/20 00:00 102 06/11/20 00:00 99.5 100 20 93/59 (70) 96 06/10/20 23:00 101 19 102/58 (73) 95 06/10/20 23:00 23 Mechanical Ventilator 21.0 100 06/10/20 23:00 23 93/59 Mechanical Ventilator 80 06/10/20 22:38 104 20 70 06/10/20 22:00 110 21 111/67 (82) 96 06/10/20 22:00 20 Mechanical Ventilator 80 06/10/20 22:00 20 98/63 Mechanical Ventilator 80 06/10/20 21:00 20 Mechanical Ventilator 100 06/10/20 21:00 20 115/49 Mechanical Ventilator 80 06/10/20 21:00 113 23 115/49 (71) 95 06/10/20 20:27 20 80 06/10/20 20:21 20 98/53 Mechanical Ventilator 80 06/10/20 20:00 80 06/10/20 20:00 Mechanical Ventilator Mechanical Ventilator 06/10/20 20:00 106 06/10/20 20:00 20 Mechanical Ventilator 80 06/10/20 20:00 20 98/68 Mechanical Ventilator 80 06/10/20 20:00 100.0 99 19 98/53 (68) 95 06/10/20 19:30 101 19 70 06/10/20 19:00 99 19 109/60 (76) 97 06/10/20 19:00 19 Mechanical Ventilator 80 06/10/20 19:00 19 109/60 Mechanical Ventilator 80 06/10/20 18:00 90 14 103/52 (69) 98 06/10/20 18:00 14 Mechanical Ventilator 80 06/10/20 18:00 14 103/52 Mechanical Ventilator 80 06/10/20 17:00 96 18 114/65 (81) 98 06/10/20 17:00 18 Endotracheal Tube 80 06/10/20 17:00 18 114/65 Mechanical Ventilator 80 06/10/20 16:00 99.1 93 14 116/63 (80) 98 06/10/20 16:00 14 Mechanical Ventilator 80 06/10/20 16:00 14 116/63 Mechanical Ventilator 80 06/10/20 16:00 80 06/10/20 16:00 Mechanical Ventilator Mechanical Ventilator 06/10/20 15:25 94 06/10/20 15:00 97 18 116/67 (83) 98 06/10/20 15:00 18 Mechanical Ventilator 80 06/10/20 15:00 18 116/67 Mechanical Ventilator 80 06/10/20 14:00 20 Mechanical Ventilator 80 06/10/20 14:00 20 114/68 Mechanical Ventilator 80 06/10/20 14:00 98 20 114/68 (83) 98 06/10/20 13:15 97 19 80 06/10/20 13:00 99 16 115/68 (84) 98 06/10/20 13:00 16 Mechanical Ventilator 80 06/10/20 13:00 16 115/68 Mechanical Ventilator 80 06/10/20 12:19 100 06/10/20 12:00 Mechanical Ventilator Mechanical Ventilator 06/10/20 12:00 20 Mechanical Ventilator 80 06/10/20 12:00 20 123/66 Mechanical Ventilator 80 06/10/20 12:00 98.9 104 20 123/66 (85) 98 06/10/20 12:00 80 06/10/20 11:00 107 20 124/70 (88) 97 06/10/20 11:00 20 Mechanical Ventilator 80 06/10/20 11:00 20 124/70 Mechanical Ventilator 80 06/10/20 10:00 16 Mechanical Ventilator 80 06/10/20 10:00 16 116/64 Mechanical Ventilator 80 06/10/20 10:00 109 16 116/64 (81) 97 06/10/20 09:43 80 06/10/20 09:00 15 Mechanical Ventilator 80 06/10/20 09:00 15 121/58 Mechanical Ventilator 80 06/10/20 09:00 117 15 121/58 (79) 99 06/10/20 08:05 123 Intake and Output 06/10/20 06/11/20 19:00 07:00 Intake Total 1529 ml 1724 ml Output Total 581 ml 860 ml Balance 948 ml 864 ml Free Water 150 ml IV Total 809 ml 854 ml Tube Feeding 720 ml 720 ml Output Urine Total 580 ml 860 ml Stool Total 1 ml Laboratory Tests 06/11/20 05:55: White Blood Count 8.5, Red Blood Count 3.39L, Hemoglobin 9.8L, Hematocrit 31.7L, Mean Corpuscular Volume 94, Mean Corpuscular Hemoglobin 28.9, Mean Corpuscular Hemoglobin Concent 30.9L, Red Cell Distribution Width 15.4H, Platelet Count 156, Mean Platelet Volume 8.6, Neutrophils (%) (Auto) 74.6, Lymphocytes (%) (Auto) 19.3L, Monocytes (%) (Auto) 2.4, Eosinophils (%) (Auto) 2.9, Basophils (%) (Auto) 0.9, D-Dimer [Pending], Sodium Level [Pending], Potassium Level [Pending], Chloride Level [Pending], Carbon Dioxide Level [Pending], Blood Urea Nitrogen [Pending], Creatinine [Pending], Estimat Glomerular Filtration Rate [Pending], Glucose Level [Pending], Calcium Level [Pending] Height (Feet): 5 Height (Inches): 5.00 Weight (Pounds): 308 Objective Current Medications Medications (Trade) Dose Ordered Sig/Zelda Route PRN Reason Start Time Stop Time Status Last Admin Dose Admin Acetaminophen (Tylenol) 650 mg Q4H PRN NG Temp >100.5 05/31/20 21:45 06/30/20 21:44 06/11/20 03:17 Acetaminophen (Tylenol) 650 mg Q6H PRN NG Mild Pain (Pain Scale 1-3) 06/06/20 18:00 07/06/20 17:59 06/08/20 04:35 Ceftriaxone Sodium 1 gm/ Sodium Chloride 55 ml @ 110 mls/hr DAILY IVPB 05/29/20 09:00 06/15/20 08:59 06/10/20 08:45 Chlorhexidine Gluconate (Inna-Hex 2%) 1 applic DAILY@2000 TOPIC 05/30/20 20:00 08/28/20 19:59 06/10/20 20:09 Dextrose (Dextrose 50%) 25 ml Q30M PRN IV Hypoglycemia 06/05/20 10:45 09/03/20 10:44 Dextrose (Dextrose 50%) 50 ml Q30M PRN IV Hypoglycemia 06/05/20 10:45 09/03/20 10:44 Docusate Sodium (Colace) 100 mg Q12HR GT 06/07/20 21:00 07/07/20 20:59 06/10/20 20:53 Enoxaparin Sodium (Lovenox) 40 mg DAILY SUBQ 05/30/20 10:00 08/28/20 09:59 06/08/20 09:08 Fentanyl Citrate 250 ml @ 1 mls/hr Q24H IV 06/07/20 17:01 06/12/20 17:00 06/10/20 20:21 Insulin Aspart (NovoLOG) EVERY 6 HOURS SUBQ 06/07/20 00:00 09/03/20 11:59 06/10/20 17:54 Insulin Aspart (NovoLOG) 20 units EVERY 6 HOURS SUBQ 06/09/20 18:00 09/04/20 08:59 06/11/20 06:00 Methylprednisolone Sodium Succinate (Solu-MEDROL) 30 mg DAILY IVP 06/11/20 09:00 09/09/20 08:59 Midazolam HCl 100 mg/Sodium Chloride 200 ml @ 0 mls/hr Q24H PRN IV sedation 06/08/20 16:30 06/12/20 16:29 06/10/20 20:27 Pantoprazole (Protonix) 40 mg DAILY IVP 06/03/20 09:00 07/03/20 08:59 06/10/20 08:46 Polyethylene Glycol (Miralax) 17 gm BEDTIME GT 06/07/20 21:00 07/07/20 20:59 06/09/20 20:08 Sodium Chloride 1,000 ml @ 50 mls/hr Q20H IV 06/06/20 08:00 07/06/20 07:59 06/11/20 07:44 Assessment/Plan Problem List: (1) Diabetes mellitus out of control ICD Codes: E11.65 - Type 2 diabetes mellitus with hyperglycemia SNOMED: 03732207, 764625976 (2) Pneumonia due to COVID-19 virus ICD Codes: U07.1 - COVID-19; J12.82 - Pneumonia due to coronavirus disease 2019 SNOMED: 296121286777457578 (3) Respiratory distress ICD Codes: R06.03 - Acute respiratory distress; J12.82 - Pneumonia due to coronavirus disease 2019 SNOMED: 797659176 Status: progressing, unchanged Assessment/Plan: continue Novolog 20 units every 6 hours continue Novolog sliding scale every 6 hours Huber Adame MD Jun 11, 2020 08:03
[2020-06-11] MEDS: Pantoprazole Inj IVP SCH (08:13)
[2020-06-11] MEDS: cefTRIAXone 1 GM in NS 55 ML IVPB SCH (08:13)
[2020-06-11] MEDS: Solu-MEDROL 40mg Inj IVP SCH (08:13)
--- NOTE | 2020-06-11 08:45 | NUR ---
RD ASSESSMENT & RECOMMENDATIONS SEE CARE ACTIVITY FOR COMPLETE ASSESSMENT DAILY ESTIMATED NEEDS: Needs based on Critical care, obesity 11-14kcal/kg actual body wt (140kg) kcals/kg 6201-3439 total kcals 1.5-2.0g prot/kg IBW (64.5kg) g protein/kg 96-129 g total protein 25-30ml/kg abw (83kg) mL/kg 3145-5053 total fluid mLs NUTRITION DIAGNOSIS: Swallowing difficulty R/T respiratory failure as evidenced by pt orally intubated and sedated, on OGT feeds. CURRENT TF: Vital 1.2 goal of 60ml/hr ENTERAL NUTRITION RECOMMENDATIONS: Vital AF 1.2 @ 60ml/hr x 24 hrs to provide 1440ml, 1728kcal, 108g prot, 1168ml free water * Maintain current critical care and carb controlled TF formula of Vital AF * TF @ goal meeds 100% est kcal/prot needs * HOB over 30 degrees/ water flush per MD TF may be lowered to 55ml/hr for improved BG control while maintaining Kcal and pro needs. ADDITIONAL RECOMMENDATIONS: * Calibrated bedscale wt * Monitor Propofol rate, need for TF adjustment-> now off * Monitor BGs closely : now improved, on novolog q 6rs + NISS * Monitor lytes * Rec bowel regimen- now added . .
[2020-06-11] MEDS: Enoxaparin 40mg Inj SUBQ SCH (09:00)
[2020-06-11] MEDS: Docusate 100mg/10ml Liq GT SCH ×2 (09:00→20:10)
--- NOTE | 2020-06-11 09:48 | NUR ---
NURSE NOTES: Dr. Nava at bedside. Vent settings PEEP changed from 12 to 10. Will continue to monitor. Will have another ABG tomorrow.
--- NOTE | 2020-06-11 09:57 | Pulmonology Progress Note ---
Subjective ROS Limited/Unobtainable: Yes Interval Events: Remains intubated Constitutional: Denies: fever HEENT: Repors: no symptoms Respiratory: Reports: no symptoms Cardiovascular: Reports: no symptoms Gastrointestinal/Abdominal: Reports: no symptoms Genitourinary: Reports: no symptoms Allergies: Coded Allergies: No Known Allergies (Unverified , 05/28/20) All Systems: reviewed and negative except above Objective Last 24 Hour Vital Signs Date Time Temp Pulse Resp B/P (MAP) Pulse Ox O2 Delivery O2 Flow Rate FiO2 06/11/20 09:00 110 19 102/58 (73) 97 06/11/20 08:50 70 06/11/20 08:08 107 06/11/20 08:00 70 06/11/20 08:00 Mechanical Ventilator Mechanical Ventilator 06/11/20 08:00 100.3 108 19 99/58 (72) 96 06/11/20 07:00 22 70 06/11/20 07:00 22 122/62 Mechanical Ventilator 70 06/11/20 07:00 115 22 122/63 (82) 06/11/20 06:30 86 22 06/11/20 06:00 101.0 109 21 120/61 (80) 93 06/11/20 06:00 22 Mechanical Ventilator 80 06/11/20 06:00 20 120/68 Mechanical Ventilator 80 06/11/20 05:00 21 80 06/11/20 05:00 20 108/57 Mechanical Ventilator 80 06/11/20 05:00 108 21 97/57 (70) 95 06/11/20 05:00 103 21 97/57 (70) 95 06/11/20 04:00 80 06/11/20 04:00 20 Mechanical Ventilator 80 06/11/20 04:00 20 101/47 Mechanical Ventilator 80 06/11/20 04:00 Mechanical Ventilator Mechanical Ventilator 06/11/20 04:00 101 06/11/20 04:00 101.5 94 20 101/47 (65) 95 06/11/20 03:51 103 20 70 06/11/20 03:47 101.0 06/11/20 03:00 105 21 108/57 (74) 95 06/11/20 03:00 21 Mechanical Ventilator 80 06/11/20 03:00 21 108/57 Mechanical Ventilator 80 06/11/20 02:00 107 20 106/55 (72) 95 06/11/20 02:00 21 114/61 Mechanical Ventilator 80 06/11/20 01:00 111 19 98/58 (71) 96 06/11/20 01:00 22 Mechanical Ventilator 06/11/20 01:00 20 103/60 Mechanical Ventilator 80 06/11/20 00:00 80 06/11/20 00:00 Mechanical Ventilator Mechanical Ventilator 06/11/20 00:00 22 Mechanical Ventilator 100 06/11/20 00:00 20 100/60 Mechanical Ventilator 100 06/11/20 00:00 102 06/11/20 00:00 99.5 100 20 93/59 (70) 96 06/10/20 23:00 101 19 102/58 (73) 95 06/10/20 23:00 23 Mechanical Ventilator 21.0 100 06/10/20 23:00 23 93/59 Mechanical Ventilator 80 06/10/20 22:38 104 20 70 06/10/20 22:00 110 21 111/67 (82) 96 06/10/20 22:00 20 Mechanical Ventilator 80 06/10/20 22:00 20 98/63 Mechanical Ventilator 80 06/10/20 21:00 20 Mechanical Ventilator 100 06/10/20 21:00 20 115/49 Mechanical Ventilator 80 06/10/20 21:00 113 23 115/49 (71) 95 06/10/20 20:27 20 80 06/10/20 20:21 20 98/53 Mechanical Ventilator 80 06/10/20 20:00 80 06/10/20 20:00 Mechanical Ventilator Mechanical Ventilator 06/10/20 20:00 106 06/10/20 20:00 20 Mechanical Ventilator 80 06/10/20 20:00 20 98/68 Mechanical Ventilator 80 06/10/20 20:00 100.0 99 19 98/53 (68) 95 06/10/20 19:30 101 19 70 06/10/20 19:00 99 19 109/60 (76) 97 06/10/20 19:00 19 Mechanical Ventilator 80 06/10/20 19:00 19 109/60 Mechanical Ventilator 80 06/10/20 18:00 90 14 103/52 (69) 98 06/10/20 18:00 14 Mechanical Ventilator 80 06/10/20 18:00 14 103/52 Mechanical Ventilator 80 06/10/20 17:00 96 18 114/65 (81) 98 06/10/20 17:00 18 Endotracheal Tube 80 06/10/20 17:00 18 114/65 Mechanical Ventilator 80 06/10/20 16:00 99.1 93 14 116/63 (80) 98 06/10/20 16:00 14 Mechanical Ventilator 80 06/10/20 16:00 14 116/63 Mechanical Ventilator 80 06/10/20 16:00 80 06/10/20 16:00 Mechanical Ventilator Mechanical Ventilator 06/10/20 15:25 94 06/10/20 15:00 97 18 116/67 (83) 98 06/10/20 15:00 18 Mechanical Ventilator 80 06/10/20 15:00 18 116/67 Mechanical Ventilator 80 06/10/20 14:00 20 Mechanical Ventilator 80 06/10/20 14:00 20 114/68 Mechanical Ventilator 80 06/10/20 14:00 98 20 114/68 (83) 98 06/10/20 13:15 97 19 80 06/10/20 13:00 99 16 115/68 (84) 98 06/10/20 13:00 16 Mechanical Ventilator 80 06/10/20 13:00 16 115/68 Mechanical Ventilator 80 06/10/20 12:19 100 06/10/20 12:00 Mechanical Ventilator Mechanical Ventilator 06/10/20 12:00 20 Mechanical Ventilator 80 06/10/20 12:00 20 123/66 Mechanical Ventilator 80 06/10/20 12:00 98.9 104 20 123/66 (85) 98 06/10/20 12:00 80 06/10/20 11:00 107 20 124/70 (88) 97 06/10/20 11:00 20 Mechanical Ventilator 80 06/10/20 11:00 20 124/70 Mechanical Ventilator 80 06/10/20 10:00 16 Mechanical Ventilator 80 06/10/20 10:00 16 116/64 Mechanical Ventilator 80 06/10/20 10:00 109 16 116/64 (81) 97 Intake and Output 06/10/20 06/11/20 19:00 07:00 Intake Total 1529 ml 1724 ml Output Total 581 ml 860 ml Balance 948 ml 864 ml Free Water 150 ml IV Total 809 ml 854 ml Tube Feeding 720 ml 720 ml Output Urine Total 580 ml 860 ml Stool Total 1 ml General Appearance: no acute distress HEENT: normocephalic Respiratory: chest wall non-tender Cardiovascular: normal peripheral pulses Abdomen: normal bowel sounds Laboratory Tests 06/11/20 05:55: White Blood Count 8.5, Red Blood Count 3.39L, Hemoglobin 9.8L, Hematocrit 31.7L, Mean Corpuscular Volume 94, Mean Corpuscular Hemoglobin 28.9, Mean Corpuscular Hemoglobin Concent 30.9L, Red Cell Distribution Width 15.4H, Platelet Count 156, Mean Platelet Volume 8.6, Neutrophils (%) (Auto) 74.6, Lymphocytes (%) (Auto) 19.3L, Monocytes (%) (Auto) 2.4, Eosinophils (%) (Auto) 2.9, Basophils (%) (Auto) 0.9, D-Dimer 29.59H, Sodium Level 143, Potassium Level 4.5, Chloride Level 103, Carbon Dioxide Level 39H, Anion Gap 1L, Blood Urea Nitrogen 25H, Creatinine 0.7, Estimat Glomerular Filtration Rate > 60, Glucose Level 117H, Calcium Level 8.9 06/11/20 07:48: Arterial Blood pH 7.401, Arterial Blood Partial Pressure CO2 71.4*H, Arterial Blood Partial Pressure O2 83.4, Arterial Blood HCO3 43.3*H, Arterial Blood Oxygen Saturation 95.3, Arterial Blood Base Excess 15.7*H, Jeremiah Test Positive Current Medications Medications (Trade) Dose Ordered Sig/Zelda Route PRN Reason Start Time Stop Time Status Last Admin Dose Admin Acetaminophen (Tylenol) 650 mg Q4H PRN NG Temp >100.5 05/31/20 21:45 06/30/20 21:44 06/11/20 03:17 Acetaminophen (Tylenol) 650 mg Q6H PRN NG Mild Pain (Pain Scale 1-3) 06/06/20 18:00 07/06/20 17:59 06/08/20 04:35 Ceftriaxone Sodium 1 gm/ Sodium Chloride 55 ml @ 110 mls/hr DAILY IVPB 05/29/20 09:00 06/15/20 08:59 06/11/20 08:13 Chlorhexidine Gluconate (Inna-Hex 2%) 1 applic DAILY@2000 TOPIC 05/30/20 20:00 08/28/20 19:59 06/10/20 20:09 Dextrose (Dextrose 50%) 25 ml Q30M PRN IV Hypoglycemia 06/05/20 10:45 09/03/20 10:44 Dextrose (Dextrose 50%) 50 ml Q30M PRN IV Hypoglycemia 06/05/20 10:45 09/03/20 10:44 Docusate Sodium (Colace) 100 mg Q12HR GT 06/07/20 21:00 07/07/20 20:59 06/10/20 20:53 Enoxaparin Sodium (Lovenox) 40 mg DAILY SUBQ 05/30/20 10:00 08/28/20 09:59 06/08/20 09:08 Fentanyl Citrate 250 ml @ 1 mls/hr Q24H IV 06/07/20 17:01 06/12/20 17:00 06/10/20 20:21 Insulin Aspart (NovoLOG) EVERY 6 HOURS SUBQ 06/07/20 00:00 09/03/20 11:59 06/10/20 17:54 Insulin Aspart (NovoLOG) 20 units EVERY 6 HOURS SUBQ 06/09/20 18:00 09/04/20 08:59 06/11/20 06:00 Methylprednisolone Sodium Succinate (Solu-MEDROL) 30 mg DAILY IVP 06/11/20 09:00 09/09/20 08:59 06/11/20 08:13 Midazolam HCl 100 mg/Sodium Chloride 200 ml @ 0 mls/hr Q24H PRN IV sedation 06/08/20 16:30 06/12/20 16:29 06/10/20 20:27 Pantoprazole (Protonix) 40 mg DAILY IVP 06/03/20 09:00 07/03/20 08:59 06/11/20 08:13 Polyethylene Glycol (Miralax) 17 gm BEDTIME GT 06/07/20 21:00 07/07/20 20:59 06/09/20 20:08 Sodium Chloride 1,000 ml @ 50 mls/hr Q20H IV 06/06/20 08:00 07/06/20 07:59 06/11/20 07:44 Assessment/Plan Assessment/Plan 1. COVID-19 pneumonia -Intubated 05/28/20 - We will continue broad-spectrum antibiotics. - On solumedrol -On Rocephin -Continue monitoring SaO2 and keep it >92% -Continue PEEP 10; - Peak airway pressures high; approx 73 - FiO2 100% -> 90%; will attempt to decrease - ABG 7.40/74/70 - -will continue OGT feeding -Continue sedation -Need to keep patient completely sedated. 2. Hyponatremia -Per primary MD 3. Elevated inflammatory markers - has high D dimer; if higher; Lovenox on hold due to hematuria Javier Nava MD Jun 11, 2020 09:57
--- NOTE | 2020-06-11 10:00 | Hematology/Onc Progress Note ---
Assessment/Plan Assessment/Plan # Thrombocytopenia is due to infection/underlying covid19+++ --> ABX ceftriaxone per id --> on steriods likely cause of initial wbc --> per pulm --> plt 107->156 --> smear reviewed # Anemia due to chronic disease --> hgb goal is >7 -> hgb trend 10-->9.8 --> transfuse prn --> ferritin is >1000 --> hold off on iron # Elevated ddimer due to covid19++ --> duplex legs is negative --> underlying covid rx # Hypoxia -> due to covid19 # Hypoxemia --> rx same as above # Respiratory failure --> on vent --> per pulm # Pneumonia due to COVID-19 virus --> per pulm rx # Diabetes mellitus out of control --> hgb a1c goal <7 # Poor prognosis # Dvt ppx lovenox sq Appreciate consultation and bowen RN Subjective Allergies: Coded Allergies: No Known Allergies (Unverified , 05/28/20) All Systems: reviewed and negative except above Subjective 06/10 nv, on vent, with ogt, on fentanyl and versed, plt stable 06/11 nv, vent adjusted is on ogt, meds reviewed Objective Objective Current Medications Medications (Trade) Dose Ordered Sig/Zelda Route PRN Reason Start Time Stop Time Status Last Admin Dose Admin Acetaminophen (Tylenol) 650 mg Q4H PRN NG Temp >100.5 05/31/20 21:45 06/30/20 21:44 06/11/20 03:17 Acetaminophen (Tylenol) 650 mg Q6H PRN NG Mild Pain (Pain Scale 1-3) 06/06/20 18:00 07/06/20 17:59 06/08/20 04:35 Ceftriaxone Sodium 1 gm/ Sodium Chloride 55 ml @ 110 mls/hr DAILY IVPB 05/29/20 09:00 06/15/20 08:59 06/11/20 08:13 Chlorhexidine Gluconate (Inna-Hex 2%) 1 applic DAILY@1999 TOPIC 05/30/20 20:00 08/28/20 19:59 06/10/20 20:09 Dextrose (Dextrose 50%) 25 ml Q30M PRN IV Hypoglycemia 06/05/20 10:45 09/03/20 10:44 Dextrose (Dextrose 50%) 50 ml Q30M PRN IV Hypoglycemia 06/05/20 10:45 09/03/20 10:44 Docusate Sodium (Colace) 100 mg Q12HR GT 06/07/20 21:00 07/07/20 20:59 06/10/20 20:53 Enoxaparin Sodium (Lovenox) 40 mg DAILY SUBQ 05/30/20 10:00 08/28/20 09:59 06/08/20 09:08 Fentanyl Citrate 250 ml @ 1 mls/hr Q24H IV 06/07/20 17:01 06/12/20 17:00 06/10/20 20:21 Insulin Aspart (NovoLOG) EVERY 6 HOURS SUBQ 06/07/20 00:00 09/03/20 11:59 06/10/20 17:54 Insulin Aspart (NovoLOG) 20 units EVERY 6 HOURS SUBQ 06/09/20 18:00 09/04/20 08:59 06/11/20 06:00 Methylprednisolone Sodium Succinate (Solu-MEDROL) 30 mg DAILY IVP 06/11/20 09:00 09/09/20 08:59 06/11/20 08:13 Midazolam HCl 100 mg/Sodium Chloride 200 ml @ 0 mls/hr Q24H PRN IV sedation 06/08/20 16:30 06/12/20 16:29 06/10/20 20:27 Pantoprazole (Protonix) 40 mg DAILY IVP 06/03/20 09:00 07/03/20 08:59 06/11/20 08:13 Polyethylene Glycol (Miralax) 17 gm BEDTIME GT 06/07/20 21:00 07/07/20 20:59 06/09/20 20:08 Sodium Chloride 1,000 ml @ 50 mls/hr Q20H IV 06/06/20 08:00 07/06/20 07:59 06/11/20 07:44 Last 24 Hour Vital Signs Date Time Temp Pulse Resp B/P (MAP) Pulse Ox O2 Delivery O2 Flow Rate FiO2 06/11/20 09:45 112 21 101/56 (71) 96 06/11/20 09:00 110 19 102/58 (73) 97 06/11/20 08:50 70 06/11/20 08:08 107 06/11/20 08:00 70 06/11/20 08:00 Mechanical Ventilator Mechanical Ventilator 06/11/20 08:00 100.3 108 19 99/58 (72) 96 06/11/20 07:00 22 70 06/11/20 07:00 22 122/62 Mechanical Ventilator 70 06/11/20 07:00 115 22 122/63 (82) 06/11/20 06:30 86 22 06/11/20 06:00 101.0 109 21 120/61 (80) 93 06/11/20 06:00 22 Mechanical Ventilator 80 06/11/20 06:00 20 120/68 Mechanical Ventilator 80 06/11/20 05:00 21 80 06/11/20 05:00 20 108/57 Mechanical Ventilator 80 06/11/20 05:00 108 21 97/57 (70) 95 06/11/20 05:00 103 21 97/57 (70) 95 06/11/20 04:00 80 06/11/20 04:00 20 Mechanical Ventilator 80 06/11/20 04:00 20 101/47 Mechanical Ventilator 80 06/11/20 04:00 Mechanical Ventilator Mechanical Ventilator 06/11/20 04:00 101 06/11/20 04:00 101.5 94 20 101/47 (65) 95 06/11/20 03:51 103 20 70 06/11/20 03:47 101.0 06/11/20 03:00 105 21 108/57 (74) 95 06/11/20 03:00 21 Mechanical Ventilator 80 06/11/20 03:00 21 108/57 Mechanical Ventilator 80 06/11/20 02:00 107 20 106/55 (72) 95 06/11/20 02:00 21 114/61 Mechanical Ventilator 80 06/11/20 01:00 111 19 98/58 (71) 96 06/11/20 01:00 22 Mechanical Ventilator 06/11/20 01:00 20 103/60 Mechanical Ventilator 80 06/11/20 00:00 80 06/11/20 00:00 Mechanical Ventilator Mechanical Ventilator 06/11/20 00:00 22 Mechanical Ventilator 100 06/11/20 00:00 20 100/60 Mechanical Ventilator 100 06/11/20 00:00 102 06/11/20 00:00 99.5 100 20 93/59 (70) 96 06/10/20 23:00 101 19 102/58 (73) 95 06/10/20 23:00 23 Mechanical Ventilator 21.0 100 06/10/20 23:00 23 93/59 Mechanical Ventilator 80 06/10/20 22:38 104 20 70 06/10/20 22:00 110 21 111/67 (82) 96 06/10/20 22:00 20 Mechanical Ventilator 80 06/10/20 22:00 20 98/63 Mechanical Ventilator 80 06/10/20 21:00 20 Mechanical Ventilator 100 06/10/20 21:00 20 115/49 Mechanical Ventilator 80 06/10/20 21:00 113 23 115/49 (71) 95 06/10/20 20:27 20 80 06/10/20 20:21 20 98/53 Mechanical Ventilator 80 06/10/20 20:00 80 06/10/20 20:00 Mechanical Ventilator Mechanical Ventilator 06/10/20 20:00 106 06/10/20 20:00 20 Mechanical Ventilator 80 06/10/20 20:00 20 98/68 Mechanical Ventilator 80 06/10/20 20:00 100.0 99 19 98/53 (68) 95 06/10/20 19:30 101 19 70 06/10/20 19:00 99 19 109/60 (76) 97 06/10/20 19:00 19 Mechanical Ventilator 80 06/10/20 19:00 19 109/60 Mechanical Ventilator 80 06/10/20 18:00 90 14 103/52 (69) 98 06/10/20 18:00 14 Mechanical Ventilator 80 06/10/20 18:00 14 103/52 Mechanical Ventilator 80 06/10/20 17:00 96 18 114/65 (81) 98 06/10/20 17:00 18 Endotracheal Tube 80 06/10/20 17:00 18 114/65 Mechanical Ventilator 80 06/10/20 16:00 99.1 93 14 116/63 (80) 98 06/10/20 16:00 14 Mechanical Ventilator 80 06/10/20 16:00 14 116/63 Mechanical Ventilator 80 06/10/20 16:00 80 06/10/20 16:00 Mechanical Ventilator Mechanical Ventilator 06/10/20 15:25 94 06/10/20 15:00 97 18 116/67 (83) 98 06/10/20 15:00 18 Mechanical Ventilator 80 06/10/20 15:00 18 116/67 Mechanical Ventilator 80 06/10/20 14:00 20 Mechanical Ventilator 80 06/10/20 14:00 20 114/68 Mechanical Ventilator 80 06/10/20 14:00 98 20 114/68 (83) 98 06/10/20 13:15 97 19 80 06/10/20 13:00 99 16 115/68 (84) 98 06/10/20 13:00 16 Mechanical Ventilator 80 06/10/20 13:00 16 115/68 Mechanical Ventilator 80 06/10/20 12:19 100 06/10/20 12:00 Mechanical Ventilator Mechanical Ventilator 06/10/20 12:00 20 Mechanical Ventilator 80 06/10/20 12:00 20 123/66 Mechanical Ventilator 80 06/10/20 12:00 98.9 104 20 123/66 (85) 98 06/10/20 12:00 80 06/10/20 11:00 107 20 124/70 (88) 97 06/10/20 11:00 20 Mechanical Ventilator 80 06/10/20 11:00 20 124/70 Mechanical Ventilator 80 06/10/20 10:00 16 Mechanical Ventilator 80 06/10/20 10:00 16 116/64 Mechanical Ventilator 80 06/10/20 10:00 109 16 116/64 (81) 97 06/10/20 09:43 80 06/10/20 09:00 15 Mechanical Ventilator 80 06/10/20 09:00 15 121/58 Mechanical Ventilator 80 06/10/20 09:00 117 15 121/58 (79) 99 06/10/20 08:05 123 06/10/20 08:00 Mechanical Ventilator Mechanical Ventilator 06/10/20 08:00 99.8 122 23 126/59 (81) 98 06/10/20 08:00 23 Mechanical Ventilator 80 06/10/20 08:00 23 126/59 Mechanical Ventilator 80 06/10/20 08:00 80 06/10/20 07:25 115 21 80 06/10/20 07:00 20 Mechanical Ventilator 90 06/10/20 07:00 20 118/58 Mechanical Ventilator 90 06/10/20 07:00 122 23 125/68 (87) 98 06/10/20 06:30 86 22 06/10/20 06:00 22 Mechanical Ventilator 90 06/10/20 06:00 22 118/86 Mechanical Ventilator 90 06/10/20 06:00 100.0 118 23 118/68 (85) 98 1/18/21 05:33 100.0 06/10/20 05:16 98 23 90 06/10/20 05:00 119 24 123/67 (85) 97 06/10/20 05:00 20 Mechanical Ventilator 90 06/10/20 05:00 20 106/56 Mechanical Ventilator 90 06/10/20 04:00 121 06/10/20 04:00 Mechanical Ventilator Mechanical Ventilator 06/10/20 04:00 90 06/10/20 04:00 20 90 06/10/20 04:00 20 112/60 Mechanical Ventilator 90 06/10/20 04:00 101.5 113 24 123/75 (91) 97 06/10/20 03:00 19 Mechanical Ventilator 90 06/10/20 03:00 19 108/60 Mechanical Ventilator 90 06/10/20 03:00 105 23 119/61 (80) 97 06/10/20 02:00 19 Mechanical Ventilator 90 06/10/20 02:00 19 105/59 Mechanical Ventilator 90 06/10/20 02:00 96 19 108/61 (77) 96 06/10/20 01:00 99 19 105/59 (74) 98 06/10/20 01:00 19 90 06/10/20 01:00 20 112/60 Mechanical Ventilator 90 06/10/20 00:31 99.5 06/10/20 00:00 90 06/10/20 00:00 Mechanical Ventilator Mechanical Ventilator 06/10/20 00:00 20 90 06/10/20 00:00 20 108/60 Mechanical Ventilator 90 06/10/20 00:00 99 06/10/20 00:00 101.0 103 20 108/60 (76) 97 06/09/20 23:30 111 21 90 06/09/20 23:00 104 20 107/56 (73) 99 06/09/20 23:00 20 Mechanical Ventilator 90 06/09/20 23:00 19 107/59 Mechanical Ventilator 90 06/09/20 22:00 108 19 112/60 (77) 98 06/09/20 22:00 22 Mechanical Ventilator 90 06/09/20 22:00 19 112/60 Mechanical Ventilator 90 06/09/20 21:00 119 22 122/61 (81) 97 06/09/20 21:00 20 Mechanical Ventilator 90 06/09/20 21:00 25 130/80 90 06/09/20 20:10 25 90 06/09/20 20:10 25 145/80 Mechanical Ventilator 90 06/09/20 20:00 112 06/09/20 20:00 114 24 119/72 (88) 96 06/09/20 20:00 19 Mechanical Ventilator 90 06/09/20 20:00 20 122/61 Mechanical Ventilator 90 06/09/20 20:00 Mechanical Ventilator Mechanical Ventilator 06/09/20 19:45 25 118/71 Mechanical Ventilator 90 06/09/20 19:02 111 20 90 06/09/20 19:00 24 Mechanical Ventilator 90 06/09/20 19:00 24 118/71 Mechanical Ventilator 90 06/09/20 19:00 119 24 118/71 (87) 97 06/09/20 18:00 111 30 127/69 (88) 97 06/09/20 18:00 30 Mechanical Ventilator 90 06/09/20 18:00 30 127/69 Mechanical Ventilator 90 06/09/20 17:00 116 27 135/65 (88) 95 06/09/20 17:00 30 Mechanical Ventilator 30.0 90 06/09/20 17:00 28 135/65 Mechanical Ventilator 90 06/09/20 16:00 90 06/09/20 16:00 109 06/09/20 16:00 Mechanical Ventilator Mechanical Ventilator 06/09/20 16:00 100.5 105 25 128/63 (84) 97 06/09/20 16:00 25 Mechanical Ventilator 15.0 90 06/09/20 16:00 25 128/63 Mechanical Ventilator 90 06/09/20 15:28 108 25 90 06/09/20 15:00 27 Mechanical Ventilator 90 06/09/20 15:00 27 123/64 Mechanical Ventilator 15.0 90 06/09/20 15:00 110 27 123/64 (83) 95 06/09/20 14:00 95 24 124/68 (86) 97 06/09/20 14:00 24 Mechanical Ventilator 100 06/09/20 14:00 24 124/68 Mechanical Ventilator 90 06/09/20 13:00 24 Mechanical Ventilator 15.0 90 06/09/20 13:00 24 124/66 Mechanical Ventilator 90 06/09/20 13:00 94 24 124/66 (85) 96 06/09/20 12:00 86 1/17/21 12:00 24 15.0 100 06/09/20 12:00 24 125/69 Mechanical Ventilator 100 06/09/20 12:00 98.9 86 24 125/69 (87) 94 06/09/20 12:00 Mechanical Ventilator Mechanical Ventilator 06/09/20 12:00 90 06/09/20 11:39 87 23 90 06/09/20 11:00 23 Mechanical Ventilator 100 06/09/20 11:00 23 110/68 Mechanical Ventilator 100 06/09/20 11:00 88 23 110/68 (82) 94 Intake and Output 06/10/20 06/11/20 19:00 07:00 Intake Total 1529 ml 1724 ml Output Total 581 ml 860 ml Balance 948 ml 864 ml Free Water 150 ml IV Total 809 ml 854 ml Tube Feeding 720 ml 720 ml Output Urine Total 580 ml 860 ml Stool Total 1 ml Labs Test 06/08/20 18:07 06/09/20 05:49 06/09/20 08:28 06/09/20 11:23 POC Whole Blood Glucose 308 MG/DL (74-106) White Blood Count 9.2 K/UL (4.8-10.8) Red Blood Count 3.76 M/UL (4.20-5.40) Hemoglobin 10.8 G/DL (12.0-16.0) Hematocrit 34.5 % (37.0-47.0) Mean Corpuscular Volume 92 FL (80-99) Mean Corpuscular Hemoglobin 28.7 PG (27.0-31.0) Mean Corpuscular Hemoglobin Concent 31.3 G/DL (32.0-36.0) Red Cell Distribution Width 14.1 % (11.6-14.8) Platelet Count 104 K/UL (150-450) Mean Platelet Volume 10.6 FL (6.5-10.1) Neutrophils (%) (Auto) % (45.0-75.0) Lymphocytes (%) (Auto) % (20.0-45.0) Monocytes (%) (Auto) % (1.0-10.0) Eosinophils (%) (Auto) % (0.0-3.0) Basophils (%) (Auto) % (0.0-2.0) Differential Total Cells Counted 100 Neutrophils % (Manual) 85 % (45-75) Lymphocytes % (Manual) 12 % (20-45) Monocytes % (Manual) 3 % (1-10) Eosinophils % (Manual) 0 % (0-3) Basophils % (Manual) 0 % (0-2) Band Neutrophils 0 % (0-8) Platelet Estimate Decreased Platelet Morphology Normal Anisocytosis 1+ Sodium Level 141 MMOL/L (136-145) Potassium Level 5.0 MMOL/L (3.5-5.1) Chloride Level 102 MMOL/L (98-107) Carbon Dioxide Level 35 MMOL/L (21-32) Anion Gap 4 mmol/L (5-15) Blood Urea Nitrogen 28 mg/dL (7-18) Creatinine 0.7 MG/DL (0.55-1.30) Estimat Glomerular Filtration Rate > 60 mL/min (>60) Glucose Level 175 MG/DL (74-106) Calcium Level 9.0 MG/DL (8.5-10.1) Total Bilirubin 0.8 MG/DL (0.2-1.0) Aspartate Amino Transf (AST/SGOT) 45 U/L (15-37) Alanine Aminotransferase (ALT/SGPT) 42 U/L (12-78) Alkaline Phosphatase 55 U/L (46-116) Total Protein 5.9 G/DL (6.4-8.2) Albumin 1.8 G/DL (3.4-5.0) Globulin 4.1 g/dL Albumin/Globulin Ratio 0.4 (1.0-2.7) Arterial Blood pH 7.360 (7.350-7.450) Arterial Blood Partial Pressure CO2 65.3 mmHg (35.0-45.0) Arterial Blood Partial Pressure O2 61.9 mmHg (75.0-100.0) Arterial Blood HCO3 36.1 mmol/L (22.0-26.0) Arterial Blood Oxygen Saturation 89.3 % (95-100) Arterial Blood Base Excess 8.6 (-2-2) Jeremiah Test Positive Test 06/11/20 05:55 06/11/20 07:48 White Blood Count 8.5 K/UL (4.8-10.8) Red Blood Count 3.39 M/UL (4.20-5.40) Hemoglobin 9.8 G/DL (12.0-16.0) Hematocrit 31.7 % (37.0-47.0) Mean Corpuscular Volume 94 FL (80-99) Mean Corpuscular Hemoglobin 28.9 PG (27.0-31.0) Mean Corpuscular Hemoglobin Concent 30.9 G/DL (32.0-36.0) Red Cell Distribution Width 15.4 % (11.6-14.8) Platelet Count 156 K/UL (150-450) Mean Platelet Volume 8.6 FL (6.5-10.1) Neutrophils (%) (Auto) 74.6 % (45.0-75.0) Lymphocytes (%) (Auto) 19.3 % (20.0-45.0) Monocytes (%) (Auto) 2.4 % (1.0-10.0) Eosinophils (%) (Auto) 2.9 % (0.0-3.0) Basophils (%) (Auto) 0.9 % (0.0-2.0) D-Dimer 29.59 mg/L FEU (0.00-0.49) Sodium Level 143 MMOL/L (136-145) Potassium Level 4.5 MMOL/L (3.5-5.1) Chloride Level 103 MMOL/L (98-107) Carbon Dioxide Level 39 MMOL/L (21-32) Anion Gap 1 mmol/L (5-15) Blood Urea Nitrogen 25 mg/dL (7-18) Creatinine 0.7 MG/DL (0.55-1.30) Estimat Glomerular Filtration Rate > 60 mL/min (>60) Glucose Level 117 MG/DL (74-106) Calcium Level 8.9 MG/DL (8.5-10.1) Arterial Blood pH 7.401 (7.350-7.450) Arterial Blood Partial Pressure CO2 71.4 mmHg (35.0-45.0) Arterial Blood Partial Pressure O2 83.4 mmHg (75.0-100.0) Arterial Blood HCO3 43.3 mmol/L (22.0-26.0) Arterial Blood Oxygen Saturation 95.3 % (95-100) Arterial Blood Base Excess 15.7 (-2-2) Jeremiah Test Positive Height (Feet): 5 Height (Inches): 5.00 Weight (Pounds): 308 Objective GeNL: nv Pulm: vent++ CV: rrr Abd: soft, nt, nd Ext: no cce Myron Condon MD Jun 11, 2020 10:00
--- NOTE | 2020-06-11 10:14 | Infectious Diseases Prog Note ---
Assessment/Plan Assessment/Plan A 1. COVID19 pneumonia 2. Hypoxic respiratory failure 3. Morbid obesity 4. DM type with hyperglycemia 5. Thrombocytopenia 6. Fever P 1. Finished remdesivir course 2. continue Solumedrol tapering 3. change Rocephin to Zosyn 4. sputum culture 5. Blood culture from line Subjective ROS Limited/Unobtainable: Yes Constitutional: Reports: fever, other - Tf=164.5 Neurologic: Reports: other - sedated on restraint Allergies: Coded Allergies: No Known Allergies (Unverified , 05/28/20) Objective Last 24 Hour Vital Signs Date Time Temp Pulse Resp B/P (MAP) Pulse Ox O2 Delivery O2 Flow Rate FiO2 06/11/20 09:45 112 21 101/56 (71) 96 06/11/20 09:00 110 19 102/58 (73) 97 06/11/20 08:50 70 06/11/20 08:08 107 06/11/20 08:00 70 06/11/20 08:00 Mechanical Ventilator Mechanical Ventilator 06/11/20 08:00 100.3 108 19 99/58 (72) 96 06/11/20 07:00 22 70 06/11/20 07:00 22 122/62 Mechanical Ventilator 70 06/11/20 07:00 115 22 122/63 (82) 06/11/20 06:30 86 22 06/11/20 06:00 101.0 109 21 120/61 (80) 93 06/11/20 06:00 22 Mechanical Ventilator 80 06/11/20 06:00 20 120/68 Mechanical Ventilator 80 06/11/20 05:00 21 80 06/11/20 05:00 20 108/57 Mechanical Ventilator 80 06/11/20 05:00 108 21 97/57 (70) 95 06/11/20 05:00 103 21 97/57 (70) 95 06/11/20 04:00 80 06/11/20 04:00 20 Mechanical Ventilator 80 06/11/20 04:00 20 101/47 Mechanical Ventilator 80 06/11/20 04:00 Mechanical Ventilator Mechanical Ventilator 06/11/20 04:00 101 06/11/20 04:00 101.5 94 20 101/47 (65) 95 06/11/20 03:51 103 20 70 06/11/20 03:47 101.0 06/11/20 03:00 105 21 108/57 (74) 95 06/11/20 03:00 21 Mechanical Ventilator 80 06/11/20 03:00 21 108/57 Mechanical Ventilator 80 06/11/20 02:00 107 20 106/55 (72) 95 06/11/20 02:00 21 114/61 Mechanical Ventilator 80 06/11/20 01:00 111 19 98/58 (71) 96 06/11/20 01:00 22 Mechanical Ventilator 06/11/20 01:00 20 103/60 Mechanical Ventilator 80 06/11/20 00:00 80 06/11/20 00:00 Mechanical Ventilator Mechanical Ventilator 06/11/20 00:00 22 Mechanical Ventilator 100 06/11/20 00:00 20 100/60 Mechanical Ventilator 100 06/11/20 00:00 102 06/11/20 00:00 99.5 100 20 93/59 (70) 96 06/10/20 23:00 101 19 102/58 (73) 95 06/10/20 23:00 23 Mechanical Ventilator 21.0 100 06/10/20 23:00 23 93/59 Mechanical Ventilator 80 06/10/20 22:38 104 20 70 06/10/20 22:00 110 21 111/67 (82) 96 06/10/20 22:00 20 Mechanical Ventilator 80 06/10/20 22:00 20 98/63 Mechanical Ventilator 80 06/10/20 21:00 20 Mechanical Ventilator 100 06/10/20 21:00 20 115/49 Mechanical Ventilator 80 06/10/20 21:00 113 23 115/49 (71) 95 06/10/20 20:27 20 80 06/10/20 20:21 20 98/53 Mechanical Ventilator 80 06/10/20 20:00 80 06/10/20 20:00 Mechanical Ventilator Mechanical Ventilator 06/10/20 20:00 106 06/10/20 20:00 20 Mechanical Ventilator 80 06/10/20 20:00 20 98/68 Mechanical Ventilator 80 06/10/20 20:00 100.0 99 19 98/53 (68) 95 06/10/20 19:30 101 19 70 06/10/20 19:00 99 19 109/60 (76) 97 06/10/20 19:00 19 Mechanical Ventilator 80 06/10/20 19:00 19 109/60 Mechanical Ventilator 80 06/10/20 18:00 90 14 103/52 (69) 98 06/10/20 18:00 14 Mechanical Ventilator 80 06/10/20 18:00 14 103/52 Mechanical Ventilator 80 06/10/20 17:00 96 18 114/65 (81) 98 06/10/20 17:00 18 Endotracheal Tube 80 06/10/20 17:00 18 114/65 Mechanical Ventilator 80 06/10/20 16:00 99.1 93 14 116/63 (80) 98 06/10/20 16:00 14 Mechanical Ventilator 80 06/10/20 16:00 14 116/63 Mechanical Ventilator 80 06/10/20 16:00 80 06/10/20 16:00 Mechanical Ventilator Mechanical Ventilator 06/10/20 15:25 94 06/10/20 15:00 97 18 116/67 (83) 98 06/10/20 15:00 18 Mechanical Ventilator 80 06/10/20 15:00 18 116/67 Mechanical Ventilator 80 06/10/20 14:00 20 Mechanical Ventilator 80 06/10/20 14:00 20 114/68 Mechanical Ventilator 80 06/10/20 14:00 98 20 114/68 (83) 98 06/10/20 13:15 97 19 80 06/10/20 13:00 99 16 115/68 (84) 98 06/10/20 13:00 16 Mechanical Ventilator 80 06/10/20 13:00 16 115/68 Mechanical Ventilator 80 06/10/20 12:19 100 06/10/20 12:00 Mechanical Ventilator Mechanical Ventilator 06/10/20 12:00 20 Mechanical Ventilator 80 06/10/20 12:00 20 123/66 Mechanical Ventilator 80 06/10/20 12:00 98.9 104 20 123/66 (85) 98 06/10/20 12:00 80 06/10/20 11:00 107 20 124/70 (88) 97 06/10/20 11:00 20 Mechanical Ventilator 80 06/10/20 11:00 20 124/70 Mechanical Ventilator 80 Height (Feet): 5 Height (Inches): 5.00 Weight (Pounds): 308 HEENT: other - orally intubated Respiratory/Chest: other - on ventilator, FIO2=70% Cardiovascular: tachycardia, other - R arm PICC line Abdomen: soft, non tender Extremities: other - generalized edema Neurologic/Psychiatric: other - sedated Laboratory Tests Test 06/11/20 05:55 06/11/20 07:48 White Blood Count 8.5 K/UL (4.8-10.8) Red Blood Count 3.39 M/UL (4.20-5.40) L Hemoglobin 9.8 G/DL (12.0-16.0) L Hematocrit 31.7 % (37.0-47.0) L Mean Corpuscular Volume 94 FL (80-99) Mean Corpuscular Hemoglobin 28.9 PG (27.0-31.0) Mean Corpuscular Hemoglobin Concent 30.9 G/DL (32.0-36.0) L Red Cell Distribution Width 15.4 % (11.6-14.8) H Platelet Count 156 K/UL (150-450) Mean Platelet Volume 8.6 FL (6.5-10.1) Neutrophils (%) (Auto) 74.6 % (45.0-75.0) Lymphocytes (%) (Auto) 19.3 % (20.0-45.0) L Monocytes (%) (Auto) 2.4 % (1.0-10.0) Eosinophils (%) (Auto) 2.9 % (0.0-3.0) Basophils (%) (Auto) 0.9 % (0.0-2.0) D-Dimer 29.59 mg/L FEU (0.00-0.49) H Sodium Level 143 MMOL/L (136-145) Potassium Level 4.5 MMOL/L (3.5-5.1) Chloride Level 103 MMOL/L (98-107) Carbon Dioxide Level 39 MMOL/L (21-32) H Anion Gap 1 mmol/L (5-15) L Blood Urea Nitrogen 25 mg/dL (7-18) H Creatinine 0.7 MG/DL (0.55-1.30) Estimat Glomerular Filtration Rate > 60 mL/min (>60) Glucose Level 117 MG/DL (74-106) H Calcium Level 8.9 MG/DL (8.5-10.1) Arterial Blood pH 7.401 (7.350-7.450) Arterial Blood Partial Pressure CO2 71.4 mmHg (35.0-45.0) *H Arterial Blood Partial Pressure O2 83.4 mmHg (75.0-100.0) Arterial Blood HCO3 43.3 mmol/L (22.0-26.0) *H Arterial Blood Oxygen Saturation 95.3 % (95-100) Arterial Blood Base Excess 15.7 (-2-2) *H Jeremiah Test Positive Current Medications Medications (Trade) Dose Ordered Sig/Zelda Route PRN Reason Start Time Stop Time Status Last Admin Dose Admin Acetaminophen (Tylenol) 650 mg Q4H PRN NG Temp >100.5 05/31/20 21:45 06/30/20 21:44 06/11/20 03:17 Acetaminophen (Tylenol) 650 mg Q6H PRN NG Mild Pain (Pain Scale 1-3) 06/06/20 18:00 07/06/20 17:59 06/08/20 04:35 Acetazolamide (Diamox) 500 mg EVERY 12 HOURS NG 06/11/20 10:07 06/12/20 21:01 Ceftriaxone Sodium 1 gm/ Sodium Chloride 55 ml @ 110 mls/hr DAILY IVPB 05/29/20 09:00 06/15/20 08:59 06/11/20 08:13 Chlorhexidine Gluconate (Inna-Hex 2%) 1 applic DAILY@2000 TOPIC 05/30/20 20:00 08/28/20 19:59 06/10/20 20:09 Dextrose (Dextrose 50%) 25 ml Q30M PRN IV Hypoglycemia 06/05/20 10:45 09/03/20 10:44 Dextrose (Dextrose 50%) 50 ml Q30M PRN IV Hypoglycemia 06/05/20 10:45 09/03/20 10:44 Docusate Sodium (Colace) 100 mg Q12HR GT 06/07/20 21:00 07/07/20 20:59 06/10/20 20:53 Enoxaparin Sodium (Lovenox) 40 mg DAILY SUBQ 05/30/20 10:00 08/28/20 09:59 06/08/20 09:08 Fentanyl Citrate 250 ml @ 1 mls/hr Q24H IV 06/07/20 17:01 06/12/20 17:00 06/10/20 20:21 Furosemide 100 mg/ Dextrose 100 ml @ 7.5 mls/hr [id number] IV 06/11/20 11:00 07/11/20 10:59 Insulin Aspart (NovoLOG) EVERY 6 HOURS SUBQ 06/07/20 00:00 09/03/20 11:59 06/10/20 17:54 Insulin Aspart (NovoLOG) 20 units EVERY 6 HOURS SUBQ 06/09/20 18:00 09/04/20 08:59 06/11/20 06:00 Methylprednisolone Sodium Succinate (Solu-MEDROL) 30 mg DAILY IVP 06/11/20 09:00 09/09/20 08:59 06/11/20 08:13 Midazolam HCl 100 mg/Sodium Chloride 200 ml @ 0 mls/hr Q24H PRN IV sedation 06/08/20 16:30 06/12/20 16:29 06/10/20 20:27 Pantoprazole (Protonix) 40 mg DAILY IVP 06/03/20 09:00 07/03/20 08:59 06/11/20 08:13 Polyethylene Glycol (Miralax) 17 gm BEDTIME GT 06/07/20 21:00 07/07/20 20:59 06/09/20 20:08 Sodium Chloride 1,000 ml @ 50 mls/hr Q20H IV 06/06/20 08:00 07/06/20 07:59 06/11/20 07:44 Colt Arana MD Jun 11, 2020 10:14
[2020-06-11] MEDS: Piperacillin/Tazobactam 3.375 GM in NS 110 ML IVPB SCH ×2 (12:31→20:04)
--- NOTE | 2020-06-11 13:00 | NUR ---
NURSE NOTES: Dr. Del Cid at bedside. Informed MD that patient is having hematuria. MD said that he will consult for urologist.
--- NOTE | 2020-06-11 13:24 | General Progress Note ---
Subjective Constitutional: Reports: weakness Allergies: Coded Allergies: No Known Allergies (Unverified , 05/28/20) All Systems: reviewed and negative except above Subjective intubated sedatde in icu Objective Last 24 Hour Vital Signs Date Time Temp Pulse Resp B/P (MAP) Pulse Ox O2 Delivery O2 Flow Rate FiO2 06/11/20 12:15 104 19 122/79 (93) 99 06/11/20 12:00 106 19 118/62 (80) 98 06/11/20 12:00 Mechanical Ventilator Mechanical Ventilator 06/11/20 11:58 106 19 119/61 (80) 98 06/11/20 11:45 106 19 119/61 (80) 98 06/11/20 11:00 115 19 129/71 (90) 97 06/11/20 10:00 109 20 127/73 (91) 98 06/11/20 09:45 112 21 101/56 (71) 96 06/11/20 09:00 110 19 102/58 (73) 97 06/11/20 08:50 70 06/11/20 08:08 107 06/11/20 08:00 70 06/11/20 08:00 Mechanical Ventilator Mechanical Ventilator 06/11/20 08:00 100.3 108 19 99/58 (72) 96 06/11/20 07:00 22 70 06/11/20 07:00 22 122/62 Mechanical Ventilator 70 06/11/20 07:00 115 22 122/63 (82) 06/11/20 06:30 86 22 06/11/20 06:00 101.0 109 21 120/61 (80) 93 06/11/20 06:00 22 Mechanical Ventilator 80 06/11/20 06:00 20 120/68 Mechanical Ventilator 80 06/11/20 05:00 21 80 06/11/20 05:00 20 108/57 Mechanical Ventilator 80 06/11/20 05:00 108 21 97/57 (70) 95 06/11/20 05:00 103 21 97/57 (70) 95 06/11/20 04:00 80 06/11/20 04:00 20 Mechanical Ventilator 80 06/11/20 04:00 20 101/47 Mechanical Ventilator 80 06/11/20 04:00 Mechanical Ventilator Mechanical Ventilator 06/11/20 04:00 101 06/11/20 04:00 101.5 94 20 101/47 (65) 95 06/11/20 03:51 103 20 70 06/11/20 03:47 101.0 06/11/20 03:00 105 21 108/57 (74) 95 06/11/20 03:00 21 Mechanical Ventilator 80 06/11/20 03:00 21 108/57 Mechanical Ventilator 80 06/11/20 02:00 107 20 106/55 (72) 95 06/11/20 02:00 21 114/61 Mechanical Ventilator 80 06/11/20 01:00 111 19 98/58 (71) 96 06/11/20 01:00 22 Mechanical Ventilator 06/11/20 01:00 20 103/60 Mechanical Ventilator 80 06/11/20 00:00 80 06/11/20 00:00 Mechanical Ventilator Mechanical Ventilator 06/11/20 00:00 22 Mechanical Ventilator 100 06/11/20 00:00 20 100/60 Mechanical Ventilator 100 06/11/20 00:00 102 06/11/20 00:00 99.5 100 20 93/59 (70) 96 06/10/20 23:00 101 19 102/58 (73) 95 06/10/20 23:00 23 Mechanical Ventilator 21.0 100 06/10/20 23:00 23 93/59 Mechanical Ventilator 80 06/10/20 22:38 104 20 70 06/10/20 22:00 110 21 111/67 (82) 96 06/10/20 22:00 20 Mechanical Ventilator 80 06/10/20 22:00 20 98/63 Mechanical Ventilator 80 06/10/20 21:00 20 Mechanical Ventilator 100 06/10/20 21:00 20 115/49 Mechanical Ventilator 80 06/10/20 21:00 113 23 115/49 (71) 95 06/10/20 20:27 20 80 06/10/20 20:21 20 98/53 Mechanical Ventilator 80 06/10/20 20:00 80 06/10/20 20:00 Mechanical Ventilator Mechanical Ventilator 06/10/20 20:00 106 06/10/20 20:00 20 Mechanical Ventilator 80 06/10/20 20:00 20 98/68 Mechanical Ventilator 80 06/10/20 20:00 100.0 99 19 98/53 (68) 95 06/10/20 19:30 101 19 70 06/10/20 19:00 99 19 109/60 (76) 97 06/10/20 19:00 19 Mechanical Ventilator 80 06/10/20 19:00 19 109/60 Mechanical Ventilator 80 06/10/20 18:00 90 14 103/52 (69) 98 06/10/20 18:00 14 Mechanical Ventilator 80 06/10/20 18:00 14 103/52 Mechanical Ventilator 80 06/10/20 17:00 96 18 114/65 (81) 98 06/10/20 17:00 18 Endotracheal Tube 80 06/10/20 17:00 18 114/65 Mechanical Ventilator 80 06/10/20 16:00 99.1 93 14 116/63 (80) 98 06/10/20 16:00 14 Mechanical Ventilator 80 06/10/20 16:00 14 116/63 Mechanical Ventilator 80 06/10/20 16:00 80 06/10/20 16:00 Mechanical Ventilator Mechanical Ventilator 06/10/20 15:25 94 06/10/20 15:00 97 18 116/67 (83) 98 06/10/20 15:00 18 Mechanical Ventilator 80 06/10/20 15:00 18 116/67 Mechanical Ventilator 80 06/10/20 14:00 20 Mechanical Ventilator 80 06/10/20 14:00 20 114/68 Mechanical Ventilator 80 06/10/20 14:00 98 20 114/68 (83) 98 Intake and Output 06/10/20 06/11/20 19:00 07:00 Intake Total 1529 ml 1724 ml Output Total 581 ml 860 ml Balance 948 ml 864 ml Free Water 150 ml IV Total 809 ml 854 ml Tube Feeding 720 ml 720 ml Output Urine Total 580 ml 860 ml Stool Total 1 ml Laboratory Tests 06/11/20 05:55: White Blood Count 8.5, Red Blood Count 3.39L, Hemoglobin 9.8L, Hematocrit 31.7L, Mean Corpuscular Volume 94, Mean Corpuscular Hemoglobin 28.9, Mean Corpuscular Hemoglobin Concent 30.9L, Red Cell Distribution Width 15.4H, Platelet Count 156, Mean Platelet Volume 8.6, Neutrophils (%) (Auto) 74.6, Lymphocytes (%) (Auto) 19.3L, Monocytes (%) (Auto) 2.4, Eosinophils (%) (Auto) 2.9, Basophils (%) (Auto) 0.9, D-Dimer 29.59H, Sodium Level 143, Potassium Level 4.5, Chloride Level 103, Carbon Dioxide Level 39H, Anion Gap 1L, Blood Urea Nitrogen 25H, Creatinine 0.7, Estimat Glomerular Filtration Rate > 60, Glucose Level 117H, Calcium Level 8.9 06/11/20 07:48: Arterial Blood pH 7.401, Arterial Blood Partial Pressure CO2 71.4*H, Arterial Blood Partial Pressure O2 83.4, Arterial Blood HCO3 43.3*H, Arterial Blood Oxygen Saturation 95.3, Arterial Blood Base Excess 15.7*H, Jeremiah Test Positive Height (Feet): 5 Height (Inches): 5.00 Weight (Pounds): 308 General Appearance: lethargic EENT: normal ENT inspection Neck: normal alignment Cardiovascular: normal peripheral pulses, normal rate, regular rhythm Respiratory/Chest: chest wall non-tender, lungs clear, normal breath sounds Abdomen: normal bowel sounds, non tender, soft Extremities: normal inspection Edema: no edema noted Arm (L), no edema noted Arm (R), no edema noted Leg (L), no edema noted Leg (R), no edema noted Pedal (L), no edema noted Pedal (R), no edema noted Generalized Neurologic: motor weakness Skin: normal pigmentation, warm/dry Assessment/Plan Problem List: (1) Hypoxia ICD Codes: R09.02 - Hypoxemia SNOMED: 192380652 (2) Respiratory failure ICD Codes: J96.90 - Respiratory failure, unspecified, unspecified whether with hypoxia or hypercapnia SNOMED: 223037335 (3) Respiratory distress ICD Codes: R06.03 - Acute respiratory distress; J12.82 - Pneumonia due to coronavirus disease 2019 SNOMED: 825814080 (4) Pneumonia due to COVID-19 virus ICD Codes: U07.1 - COVID-19; J12.82 - Pneumonia due to coronavirus disease 2019 SNOMED: 347865607705332750 Status: unchanged Assessment/Plan: vent abx id pulm f/u cbc bmp am Tank Del Cid DO Jun 11, 2020 13:24
--- NOTE | 2020-06-11 14:01 | NUR ---
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 IS: Versed GTT Fentanyl GTT Solu-Medrol IVP q 24h Rocephin IV q 24h Lovenox SQ QD Protonix IVP QD Zosyn IV q 8 h Lasix gtt ICU status
[2020-06-11] MEDS: Midazolam HCl 50mg/10ml vial 100 MG in NS 180 ML IV PRN (19:19)
--- NOTE | 2020-06-11 19:30 | NUR ---
NURSE HAND-OFF REPORT: Latest Vital Signs: Temperature 100.4 , Pulse 111 , B/P 124 /81 , Respiratory Rate 23 , O2 SAT 91 , Mechanical Ventilator, O2 Flow Rate . Vital Sign Comment: RASS -2 EKG Rhythm: Sinus Tachycardia Latest Meyers Fall Score: 70 Fall Risk: High Risk Safety Measures: Call light Within Reach, Bed Alarm Zone 1, Side Rails Side Rails x2, Bed position Low and Locked. Fall Precautions: Yellow Socks Yellow Gown Door Sign Patient Fall Education Report given to Geri Limon RN.
[2020-06-11] MEDS: Dyna-Hex 2% Top Sol 2oz TOPIC SCH (20:04)
[2020-06-11] MEDS: fentaNYL 2500mcg/NS 250ml 250 ML IV SCH (20:07)
[2020-06-11] MEDS: Miralax 17gm pkt GT SCH (20:11)
[2020-06-12] VITALS (25 sets, daily range): BP systolic 91–126; BP diastolic 49–77
[2020-06-12] MEDS: Piperacillin/Tazobactam 3.375 GM in NS 110 ML IVPB SCH ×3 (06:04→20:28)
[2020-06-12 06:05] LABS: HEMOGLOBIN 10.4 G/DL (12.0-16.0); MEAN CORPUSCULAR VOLUME 92 FL (80-99); PLATELET COUNT 192 K/UL (150-450); RED CELL DISTRIBUTION WIDTH 14.9 % (11.6-14.8); WHITE BLOOD COUNT 11.9 K/UL (4.8-10.8)
[2020-06-12 06:23] LABS: ANION GAP 2 mmol/L (5-15); BLOOD UREA NITROGEN 23 mg/dL (7-18); CALCIUM 8.8 MG/DL (8.5-10.1); CHLORIDE 95 MMOL/L (98-107); CREATININE 0.9 MG/DL (0.55-1.30); POTASSIUM 3.5 MMOL/L (3.5-5.1); SODIUM 138 MMOL/L (136-145)
[2020-06-12] MEDS: NovoLOG Insulin Flexpen SUBQ SCH ×8 (06:23→18:30)
[2020-06-12 06:25] LABS: CARBON DIOXIDE 40 MMOL/L (21-32)
--- NOTE | 2020-06-12 06:31 | General Progress Note ---
Subjective ROS Limited/Unobtainable: Yes Allergies: Coded Allergies: No Known Allergies (Unverified , 05/28/20) Subjective events noted interval notes reviewed glucose values improved Item Value Date Time Bedside Blood Glucose 164 mg/dl H 06/12/20 0624 Bedside Blood Glucose 174 mg/dl H 06/12/20 0000 Bedside Blood Glucose 260 mg/dl H 06/11/20 1710 Bedside Blood Glucose 193 mg/dl H 06/11/20 1248 Bedside Blood Glucose 130 mg/dl H 06/11/20 0600 Bedside Blood Glucose 130 mg/dl H 06/11/20 0012 Objective Last 24 Hour Vital Signs Date Time Temp Pulse Resp B/P (MAP) Pulse Ox O2 Delivery O2 Flow Rate FiO2 06/12/20 03:27 107 19 80 06/12/20 01:00 105 06/12/20 01:00 96 21 126/63 (84) 92 06/12/20 01:00 23 Mechanical Ventilator 70 06/12/20 01:00 23 126/63 Mechanical Ventilator 70 06/12/20 00:00 70 06/12/20 00:00 23 Mechanical Ventilator 70 06/12/20 00:00 24 126/63 Mechanical Ventilator 70 06/12/20 00:00 98.0 110 27 114/77 (89) 94 06/12/20 00:00 Mechanical Ventilator Mechanical Ventilator 06/11/20 23:00 118 27 130/65 (86) 93 06/11/20 23:00 23 70 06/11/20 23:00 20 130/65 Mechanical Ventilator 70 06/11/20 22:55 118 25 80 06/11/20 22:00 108 22 116/67 (83) 94 06/11/20 22:00 25 Mechanical Ventilator 70 06/11/20 22:00 21 116/119 Mechanical Ventilator 70 06/11/20 21:00 115 22 121/73 (89) 94 06/11/20 21:00 25 Mechanical Ventilator 70 06/11/20 21:00 28 121/76 Mechanical Ventilator 70 06/11/20 20:07 25 120/70 Mechanical Ventilator 70 06/11/20 20:00 Mechanical Ventilator Mechanical Ventilator 06/11/20 20:00 22 70 06/11/20 20:00 28 120/70 Mechanical Ventilator 70 06/11/20 20:00 109 06/11/20 20:00 70 06/11/20 20:00 100.0 129 27 120/70 (87) 93 06/11/20 19:30 111 23 80 06/11/20 19:19 20 Mechanical Ventilator 70 06/11/20 19:00 20 Mechanical Ventilator 70 06/11/20 19:00 22 124/81 Mechanical Ventilator 70 06/11/20 19:00 104 22 124/81 (95) 91 06/11/20 18:00 96 20 115/61 (79) 93 06/11/20 18:00 20 Mechanical Ventilator 70 06/11/20 18:00 20 115/61 Mechanical Ventilator 70 06/11/20 17:00 103 22 125/68 (87) 92 06/11/20 17:00 22 Mechanical Ventilator 70 06/11/20 17:00 22 125/68 Mechanical Ventilator 70 06/11/20 16:00 100.4 100 20 112/53 (72) 97 06/11/20 16:00 70 06/11/20 16:00 20 Mechanical Ventilator 70 06/11/20 16:00 20 112/53 Mechanical Ventilator 70 06/11/20 16:00 Mechanical Ventilator Mechanical Ventilator 06/11/20 15:26 103 06/11/20 15:24 100.4 06/11/20 15:20 99 20 70 06/11/20 15:00 114 23 142/66 (91) 95 06/11/20 15:00 23 Mechanical Ventilator 70 06/11/20 15:00 23 142/66 Mechanical Ventilator 70 06/11/20 14:00 98 19 98/57 (71) 98 06/11/20 14:00 20 Mechanical Ventilator 70 06/11/20 14:00 20 98/57 Mechanical Ventilator 70 06/11/20 13:30 98 19 115/53 (73) 98 06/11/20 13:15 119 24 136/70 (92) 98 06/11/20 13:00 20 Mechanical Ventilator 70 06/11/20 13:00 20 107/57 Mechanical Ventilator 70 06/11/20 13:00 98 20 107/57 (74) 99 06/11/20 12:45 103 20 110/59 (76) 99 06/11/20 12:30 100.2 101 19 109/60 (76) 98 06/11/20 12:15 104 19 122/79 (93) 99 06/11/20 12:00 106 19 118/62 (80) 98 06/11/20 12:00 Mechanical Ventilator Mechanical Ventilator 06/11/20 12:00 19 Mechanical Ventilator 70 06/11/20 12:00 19 118/62 Mechanical Ventilator 70 06/11/20 12:00 70 06/11/20 11:58 106 19 119/61 (80) 98 06/11/20 11:56 106 06/11/20 11:45 19 Mechanical Ventilator 70 06/11/20 11:45 106 19 119/61 (80) 98 06/11/20 11:15 109 22 70 06/11/20 11:00 19 Mechanical Ventilator 70 06/11/20 11:00 19 129/71 Mechanical Ventilator 70 06/11/20 11:00 115 19 129/71 (90) 97 06/11/20 10:00 109 20 127/73 (91) 98 06/11/20 10:00 20 Mechanical Ventilator 70 06/11/20 10:00 20 127/73 Mechanical Ventilator 70 06/11/20 09:45 112 21 101/56 (71) 96 06/11/20 09:00 19 Mechanical Ventilator 70 06/11/20 09:00 19 102/58 Mechanical Ventilator 70 06/11/20 09:00 110 19 102/58 (73) 97 06/11/20 08:53 109 19 70 06/11/20 08:50 70 06/11/20 08:08 107 06/11/20 08:00 70 06/11/20 08:00 19 Mechanical Ventilator 70 06/11/20 08:00 19 99/58 Mechanical Ventilator 70 06/11/20 08:00 Mechanical Ventilator Mechanical Ventilator 06/11/20 08:00 100.3 108 19 99/58 (72) 96 06/11/20 07:25 105 18 70 06/11/20 07:00 22 70 06/11/20 07:00 22 122/62 Mechanical Ventilator 70 06/11/20 07:00 115 22 122/63 (82) Intake and Output 06/11/20 06/12/20 19:00 07:00 Intake Total 1670.58 ml 475.5 ml Output Total 540 ml 740 ml Balance 1130.58 ml -264.5 ml IV Total 950.58 ml 115.5 ml Tube Feeding 720 ml 360 ml Output Urine Total 540 ml 740 ml # Bowel Movements 2 Laboratory Tests 06/11/20 07:48: Arterial Blood pH 7.401, Arterial Blood Partial Pressure CO2 71.4*H, Arterial Blood Partial Pressure O2 83.4, Arterial Blood HCO3 43.3*H, Arterial Blood Oxygen Saturation 95.3, Arterial Blood Base Excess 15.7*H, Jeremiah Test Positive 06/12/20 04:25: White Blood Count 11.9H, Red Blood Count 3.60L, Hemoglobin 10.4L, Hematocrit 33.0L, Mean Corpuscular Volume 92, Mean Corpuscular Hemoglobin 28.9, Mean Corpuscular Hemoglobin Concent 31.6L, Red Cell Distribution Width 14.9H, Platelet Count 192, Mean Platelet Volume 8.0, Neutrophils (%) (Auto) , Lymphocytes (%) (Auto) , Monocytes (%) (Auto) , Eosinophils (%) (Auto) , Basophils (%) (Auto) , Sodium Level 138, Potassium Level 3.5, Chloride Level 95L , Carbon Dioxide Level 40H, Anion Gap 2L, Blood Urea Nitrogen 23H, Creatinine 0.9, Estimat Glomerular Filtration Rate > 60, Glucose Level 112H, Calcium Level 8.8 Height (Feet): 5 Height (Inches): 5.00 Weight (Pounds): 308 Objective Current Medications Medications (Trade) Dose Ordered Sig/Zelda Route PRN Reason Start Time Stop Time Status Last Admin Dose Admin Acetaminophen (Tylenol) 650 mg Q4H PRN NG Temp >100.5 05/31/20 21:45 06/30/20 21:44 06/11/20 14:54 Acetaminophen (Tylenol) 650 mg Q6H PRN NG Mild Pain (Pain Scale 1-3) 06/06/20 18:00 07/06/20 17:59 06/11/20 18:14 Acetazolamide (Diamox) 500 mg EVERY 12 HOURS NG 06/11/20 10:07 06/12/20 21:01 06/11/20 20:09 Chlorhexidine Gluconate (Inna-Hex 2%) 1 applic DAILY@1999 TOPIC 05/30/20 20:00 08/28/20 19:59 06/11/20 20:04 Dextrose (Dextrose 50%) 25 ml Q30M PRN IV Hypoglycemia 06/05/20 10:45 09/03/20 10:44 Dextrose (Dextrose 50%) 50 ml Q30M PRN IV Hypoglycemia 06/05/20 10:45 09/03/20 10:44 Docusate Sodium (Colace) 100 mg Q12HR GT 06/07/20 21:00 07/07/20 20:59 06/10/20 20:53 Enoxaparin Sodium (Lovenox) 40 mg DAILY SUBQ 05/30/20 10:00 08/28/20 09:59 06/08/20 09:08 Fentanyl Citrate 250 ml @ 1 mls/hr Q24H IV 06/07/20 17:01 06/12/20 17:00 06/11/20 20:07 Furosemide 100 mg/ Dextrose 100 ml @ 7.5 mls/hr [id number] IV 06/11/20 11:00 07/11/20 10:59 06/12/20 00:15 Insulin Aspart (NovoLOG) EVERY 6 HOURS SUBQ 06/07/20 00:00 09/03/20 11:59 06/12/20 06:23 Insulin Aspart (NovoLOG) 20 units EVERY 6 HOURS SUBQ 06/09/20 18:00 09/04/20 08:59 06/12/20 06:24 Methylprednisolone Sodium Succinate (Solu-MEDROL) 30 mg DAILY IVP 06/11/20 09:00 09/09/20 08:59 06/11/20 08:13 Midazolam HCl 100 mg/Sodium Chloride 200 ml @ 0 mls/hr Q24H PRN IV sedation 06/08/20 16:30 06/12/20 16:29 06/11/20 19:19 Pantoprazole (Protonix) 40 mg DAILY IVP 06/03/20 09:00 07/03/20 08:59 06/11/20 08:13 Piperacillin Sod/ Tazobactam Sod 3.375 gm/Sodium Chloride 110 ml @ 27.5 mls/hr Q8H IVPB 06/11/20 12:00 06/18/20 11:59 06/12/20 06:04 Polyethylene Glycol (Miralax) 17 gm BEDTIME GT 06/07/20 21:00 07/07/20 20:59 06/09/20 20:08 Sodium Chloride 1,000 ml @ 50 mls/hr Q20H IV 06/06/20 08:00 07/06/20 07:59 06/12/20 04:00 Assessment/Plan Problem List: (1) Diabetes mellitus out of control ICD Codes: E11.65 - Type 2 diabetes mellitus with hyperglycemia SNOMED: 91864304, 258954202 (2) Pneumonia due to COVID-19 virus ICD Codes: U07.1 - COVID-19; J12.82 - Pneumonia due to coronavirus disease 2019 SNOMED: 628464305300930423 (3) Respiratory distress ICD Codes: R06.03 - Acute respiratory distress; J12.82 - Pneumonia due to coronavirus disease 2019 SNOMED: 920118335 Status: unchanged Assessment/Plan: continue Novolog 20 units every 6 hours continue Novolog sliding scale every 6 hours Huber Adame MD Jun 12, 2020 06:31
--- NOTE | 2020-06-12 07:20 | NUR ---
NURSE NOTES: Report received from Mallika ELLINGTON.Pt sedated,,orally intubated ETT7.5,Lip line 23,connected to vent AC16,TV 500,Fio2 80%, Peep 10,no signs of discomfort,Pt on S-Tach on the monitor,OGT feeding Vital AF at 60 ml/hr ,no residual noted,,Lennon cath in placed,urine output with hematuria,,LINDA PICC line intact with Fentanyl drip at 90 mcg/hr infusing at 9 ml/hr,Versed at 5 mcg/hr infusing at 10 ml/hr,SR up x2 with bilat soft wrist restraints,HOB elevated bed lock in lowest position,will continue with plans of care.
--- NOTE | 2020-06-12 07:41 | Hematology/Onc Progress Note ---
Assessment/Plan Assessment/Plan # Thrombocytopenia is due to infection/underlying covid19+++ --> ABX ceftriaxone -->zosyn --> on steriods likely cause of initial wbc --> per pulm --> plt 107->156-->192 --> smear reviewed # Anemia due to chronic disease --> hgb goal is >7 -> hgb trend 10-->9.8 --> transfuse prn --> ferritin is >1000 --> hold off on iron # Elevated ddimer due to covid19++ --> duplex legs is negative --> underlying covid rx # Hypoxia -> due to covid19 # Hypoxemia --> rx same as above # Respiratory failure --> on vent --> per pulm # Pneumonia due to COVID-19 virus --> per pulm rx # Diabetes mellitus out of control --> hgb a1c goal <7 # Poor prognosis # Dvt ppx lovenox sq Appreciate consultation and bowen RN Subjective HEENT: Denies: no symptoms, eye pain, blurred vision, tearing, double vision, ear pain, ear discharge, nose pain, nose congestion, throat pain, throat swelling, mouth pain, mouth swelling, other Cardiovascular: Denies: no symptoms, chest pain, edema, irregular heart rate, lightheadedness, palpitations, syncope, other Respiratory: Denies: no symptoms, cough, shortness of breath, SOB with excertion, SOB at rest, sputum, wheezing, other Gastrointestinal/Abdominal: Denies: no symptoms, abdomen distended, abdominal pain, black stools, tarry stools, blood in stool, constipated, diarrhea, difficulty swallowing, nausea, poor appetite, poor fluid intake, rectal bl eeding, vomiting, other Neurologic/Psychiatric: Denies: no symptoms, anxiety, depressed, emotional problems, headache, numbness, paresthesia, pre-existing deficit, seizure, tingling, tremors, weakness, other Endocrine: Denies: no symptoms, excessive sweating, flushing, intolerance to cold, intolerance to heat, increased hunger, increased thirst, increased urine, unexplained weight gain, unexplained weight loss, other Allergies: Coded Allergies: No Known Allergies (Unverified , 05/28/20) Subjective 06/10 nv, on vent, with ogt, on fentanyl and versed, plt stable 06/11 nv, vent adjusted is on ogt, meds reviewed 06/12 nv, vent, meds noted, labs noted, no bleeding, hgb 10.4 Objective Objective Current Medications Medications (Trade) Dose Ordered Sig/Zelda Route PRN Reason Start Time Stop Time Status Last Admin Dose Admin Acetaminophen (Tylenol) 650 mg Q4H PRN NG Temp >100.5 05/31/20 21:45 06/30/20 21:44 06/11/20 14:54 Acetaminophen (Tylenol) 650 mg Q6H PRN NG Mild Pain (Pain Scale 1-3) 06/06/20 18:00 07/06/20 17:59 06/11/20 18:14 Acetazolamide (Diamox) 500 mg EVERY 12 HOURS NG 06/11/20 10:07 06/12/20 21:01 06/11/20 20:09 Chlorhexidine Gluconate (Inna-Hex 2%) 1 applic DAILY@2000 TOPIC 05/30/20 20:00 08/28/20 19:59 06/11/20 20:04 Dextrose (Dextrose 50%) 25 ml Q30M PRN IV Hypoglycemia 06/05/20 10:45 09/03/20 10:44 Dextrose (Dextrose 50%) 50 ml Q30M PRN IV Hypoglycemia 06/05/20 10:45 09/03/20 10:44 Docusate Sodium (Colace) 100 mg Q12HR GT 06/07/20 21:00 07/07/20 20:59 06/10/20 20:53 Enoxaparin Sodium (Lovenox) 40 mg DAILY SUBQ 05/30/20 10:00 08/28/20 09:59 06/08/20 09:08 Fentanyl Citrate 250 ml @ 1 mls/hr Q24H IV 06/07/20 17:01 06/12/20 17:00 06/11/20 20:07 Furosemide 100 mg/ Dextrose 100 ml @ 7.5 mls/hr [id number] IV 06/11/20 11:00 07/11/20 10:59 06/12/20 00:15 Insulin Aspart (NovoLOG) EVERY 6 HOURS SUBQ 06/07/20 00:00 09/03/20 11:59 06/12/20 06:23 Insulin Aspart (NovoLOG) 20 units EVERY 6 HOURS SUBQ 06/09/20 18:00 09/04/20 08:59 06/12/20 06:24 Methylprednisolone Sodium Succinate (Solu-MEDROL) 30 mg DAILY IVP 06/11/20 09:00 09/09/20 08:59 06/11/20 08:13 Midazolam HCl 100 mg/Sodium Chloride 200 ml @ 0 mls/hr Q24H PRN IV sedation 06/08/20 16:30 06/12/20 16:29 06/11/20 19:19 Pantoprazole (Protonix) 40 mg DAILY IVP 06/03/20 09:00 07/03/20 08:59 06/11/20 08:13 Piperacillin Sod/ Tazobactam Sod 3.375 gm/Sodium Chloride 110 ml @ 27.5 mls/hr Q8H IVPB 06/11/20 12:00 06/18/20 11:59 06/12/20 06:04 Polyethylene Glycol (Miralax) 17 gm BEDTIME GT 06/07/20 21:00 07/07/20 20:59 06/09/20 20:08 Sodium Chloride 1,000 ml @ 50 mls/hr Q20H IV 06/06/20 08:00 07/06/20 07:59 06/12/20 04:00 Last 24 Hour Vital Signs Date Time Temp Pulse Resp B/P (MAP) Pulse Ox O2 Delivery O2 Flow Rate FiO2 06/12/20 06:00 111 22 91/49 (63) 96 06/12/20 05:00 111 18 93/56 (68) 96 06/12/20 04:00 98.0 107 19 96/49 (65) 97 06/12/20 03:27 107 19 80 06/12/20 03:07 111 19 95/58 (70) 95 06/12/20 03:00 111 18 116/66 (83) 94 06/12/20 02:00 104 22 116/66 (83) 94 06/12/20 01:00 105 06/12/20 01:00 96 21 126/63 (84) 92 06/12/20 01:00 23 Mechanical Ventilator 70 06/12/20 01:00 23 126/63 Mechanical Ventilator 70 06/12/20 00:00 70 06/12/20 00:00 23 Mechanical Ventilator 70 06/12/20 00:00 24 126/63 Mechanical Ventilator 70 06/12/20 00:00 98.0 110 27 114/77 (89) 94 06/12/20 00:00 Mechanical Ventilator Mechanical Ventilator 06/11/20 23:00 118 27 130/65 (86) 93 06/11/20 23:00 23 70 06/11/20 23:00 20 130/65 Mechanical Ventilator 70 06/11/20 22:55 118 25 80 06/11/20 22:00 108 22 116/67 (83) 94 06/11/20 22:00 25 Mechanical Ventilator 70 06/11/20 22:00 21 116/119 Mechanical Ventilator 70 06/11/20 21:00 115 22 121/73 (89) 94 06/11/20 21:00 25 Mechanical Ventilator 70 06/11/20 21:00 28 121/76 Mechanical Ventilator 70 06/11/20 20:07 25 120/70 Mechanical Ventilator 70 06/11/20 20:00 Mechanical Ventilator Mechanical Ventilator 06/11/20 20:00 22 70 06/11/20 20:00 28 120/70 Mechanical Ventilator 70 06/11/20 20:00 109 06/11/20 20:00 70 06/11/20 20:00 100.0 129 27 120/70 (87) 93 06/11/20 19:30 111 23 80 06/11/20 19:19 20 Mechanical Ventilator 70 06/11/20 19:00 20 Mechanical Ventilator 70 06/11/20 19:00 22 124/81 Mechanical Ventilator 70 06/11/20 19:00 104 22 124/81 (95) 91 06/11/20 18:00 96 20 115/61 (79) 93 06/11/20 18:00 20 Mechanical Ventilator 70 06/11/20 18:00 20 115/61 Mechanical Ventilator 70 06/11/20 17:00 103 22 125/68 (87) 92 06/11/20 17:00 22 Mechanical Ventilator 70 06/11/20 17:00 22 125/68 Mechanical Ventilator 70 06/11/20 16:00 100.4 100 20 112/53 (72) 97 06/11/20 16:00 70 06/11/20 16:00 20 Mechanical Ventilator 70 06/11/20 16:00 20 112/53 Mechanical Ventilator 70 06/11/20 16:00 Mechanical Ventilator Mechanical Ventilator 06/11/20 15:26 103 1/19/21 15:24 100.4 06/11/20 15:20 99 20 70 06/11/20 15:00 114 23 142/66 (91) 95 06/11/20 15:00 23 Mechanical Ventilator 70 06/11/20 15:00 23 142/66 Mechanical Ventilator 70 06/11/20 14:00 98 19 98/57 (71) 98 06/11/20 14:00 20 Mechanical Ventilator 70 06/11/20 14:00 20 98/57 Mechanical Ventilator 70 06/11/20 13:30 98 19 115/53 (73) 98 06/11/20 13:15 119 24 136/70 (92) 98 06/11/20 13:00 20 Mechanical Ventilator 70 06/11/20 13:00 20 107/57 Mechanical Ventilator 70 06/11/20 13:00 98 20 107/57 (74) 99 06/11/20 12:45 103 20 110/59 (76) 99 06/11/20 12:30 100.2 101 19 109/60 (76) 98 06/11/20 12:15 104 19 122/79 (93) 99 06/11/20 12:00 106 19 118/62 (80) 98 06/11/20 12:00 Mechanical Ventilator Mechanical Ventilator 06/11/20 12:00 19 Mechanical Ventilator 70 06/11/20 12:00 19 118/62 Mechanical Ventilator 70 06/11/20 12:00 70 06/11/20 11:58 106 19 119/61 (80) 98 06/11/20 11:56 106 06/11/20 11:45 19 Mechanical Ventilator 70 06/11/20 11:45 106 19 119/61 (80) 98 06/11/20 11:15 109 22 70 06/11/20 11:00 19 Mechanical Ventilator 70 06/11/20 11:00 19 129/71 Mechanical Ventilator 70 06/11/20 11:00 115 19 129/71 (90) 97 06/11/20 10:00 109 20 127/73 (91) 98 06/11/20 10:00 20 Mechanical Ventilator 70 06/11/20 10:00 20 127/73 Mechanical Ventilator 70 06/11/20 09:45 112 21 101/56 (71) 96 06/11/20 09:00 19 Mechanical Ventilator 70 06/11/20 09:00 19 102/58 Mechanical Ventilator 70 06/11/20 09:00 110 19 102/58 (73) 97 06/11/20 08:53 109 19 70 06/11/20 08:50 70 06/11/20 08:08 107 06/11/20 08:00 70 06/11/20 08:00 19 Mechanical Ventilator 70 06/11/20 08:00 19 99/58 Mechanical Ventilator 70 06/11/20 08:00 Mechanical Ventilator Mechanical Ventilator 06/11/20 08:00 100.3 108 19 99/58 (72) 96 06/11/20 07:25 105 18 70 06/11/20 07:00 22 70 06/11/20 07:00 22 122/62 Mechanical Ventilator 70 06/11/20 07:00 115 22 122/63 (82) 06/11/20 06:30 86 22 06/11/20 06:00 101.0 109 21 120/61 (80) 93 06/11/20 06:00 22 Mechanical Ventilator 80 06/11/20 06:00 20 120/68 Mechanical Ventilator 80 06/11/20 05:00 21 80 06/11/20 05:00 20 108/57 Mechanical Ventilator 80 06/11/20 05:00 108 21 97/57 (70) 95 06/11/20 05:00 103 21 97/57 (70) 95 06/11/20 04:00 80 06/11/20 04:00 20 Mechanical Ventilator 80 06/11/20 04:00 20 101/47 Mechanical Ventilator 80 06/11/20 04:00 Mechanical Ventilator Mechanical Ventilator 06/11/20 04:00 101 06/11/20 04:00 101.5 94 20 101/47 (65) 95 06/11/20 03:51 103 20 70 06/11/20 03:47 101.0 06/11/20 03:00 105 21 108/57 (74) 95 06/11/20 03:00 21 Mechanical Ventilator 80 06/11/20 03:00 21 108/57 Mechanical Ventilator 80 06/11/20 02:00 107 20 106/55 (72) 95 06/11/20 02:00 21 114/61 Mechanical Ventilator 80 06/11/20 01:00 111 19 98/58 (71) 96 06/11/20 01:00 22 Mechanical Ventilator 06/11/20 01:00 20 103/60 Mechanical Ventilator 80 06/11/20 00:00 80 06/11/20 00:00 Mechanical Ventilator Mechanical Ventilator 06/11/20 00:00 22 Mechanical Ventilator 100 06/11/20 00:00 20 100/60 Mechanical Ventilator 100 06/11/20 00:00 102 06/11/20 00:00 99.5 100 20 93/59 (70) 96 06/10/20 23:00 101 19 102/58 (73) 95 06/10/20 23:00 23 Mechanical Ventilator 21.0 100 06/10/20 23:00 23 93/59 Mechanical Ventilator 80 06/10/20 22:38 104 20 70 06/10/20 22:00 110 21 111/67 (82) 96 06/10/20 22:00 20 Mechanical Ventilator 80 06/10/20 22:00 20 98/63 Mechanical Ventilator 80 06/10/20 21:00 20 Mechanical Ventilator 100 06/10/20 21:00 20 115/49 Mechanical Ventilator 80 06/10/20 21:00 113 23 115/49 (71) 95 06/10/20 20:27 20 80 06/10/20 20:21 20 98/53 Mechanical Ventilator 80 06/10/20 20:00 80 06/10/20 20:00 Mechanical Ventilator Mechanical Ventilator 06/10/20 20:00 106 06/10/20 20:00 20 Mechanical Ventilator 80 06/10/20 20:00 20 98/68 Mechanical Ventilator 80 06/10/20 20:00 100.0 99 19 98/53 (68) 95 06/10/20 19:30 101 19 70 06/10/20 19:00 99 19 109/60 (76) 97 06/10/20 19:00 19 Mechanical Ventilator 80 06/10/20 19:00 19 109/60 Mechanical Ventilator 80 06/10/20 18:00 90 14 103/52 (69) 98 06/10/20 18:00 14 Mechanical Ventilator 80 06/10/20 18:00 14 103/52 Mechanical Ventilator 80 06/10/20 17:00 96 18 114/65 (81) 98 06/10/20 17:00 18 Endotracheal Tube 80 06/10/20 17:00 18 114/65 Mechanical Ventilator 80 06/10/20 16:00 99.1 93 14 116/63 (80) 98 06/10/20 16:00 14 Mechanical Ventilator 80 06/10/20 16:00 14 116/63 Mechanical Ventilator 80 06/10/20 16:00 80 06/10/20 16:00 Mechanical Ventilator Mechanical Ventilator 06/10/20 15:25 94 06/10/20 15:00 97 18 116/67 (83) 98 06/10/20 15:00 18 Mechanical Ventilator 80 06/10/20 15:00 18 116/67 Mechanical Ventilator 80 06/10/20 14:00 20 Mechanical Ventilator 80 06/10/20 14:00 20 114/68 Mechanical Ventilator 80 06/10/20 14:00 98 20 114/68 (83) 98 06/10/20 13:15 97 19 80 06/10/20 13:00 99 16 115/68 (84) 98 06/10/20 13:00 16 Mechanical Ventilator 80 06/10/20 13:00 16 115/68 Mechanical Ventilator 80 06/10/20 12:19 100 06/10/20 12:00 Mechanical Ventilator Mechanical Ventilator 06/10/20 12:00 20 Mechanical Ventilator 80 06/10/20 12:00 20 123/66 Mechanical Ventilator 80 06/10/20 12:00 98.9 104 20 123/66 (85) 98 06/10/20 12:00 80 06/10/20 11:00 107 20 124/70 (88) 97 06/10/20 11:00 20 Mechanical Ventilator 80 06/10/20 11:00 20 124/70 Mechanical Ventilator 80 06/10/20 10:00 16 Mechanical Ventilator 80 06/10/20 10:00 16 116/64 Mechanical Ventilator 80 06/10/20 10:00 109 16 116/64 (81) 97 06/10/20 09:43 80 06/10/20 09:00 15 Mechanical Ventilator 80 06/10/20 09:00 15 121/58 Mechanical Ventilator 80 06/10/20 09:00 117 15 121/58 (79) 99 06/10/20 08:05 123 06/10/20 08:00 Mechanical Ventilator Mechanical Ventilator 06/10/20 08:00 99.8 122 23 126/59 (81) 98 06/10/20 08:00 23 Mechanical Ventilator 80 06/10/20 08:00 23 126/59 Mechanical Ventilator 80 06/10/20 08:00 80 Intake and Output 06/11/20 06/12/20 19:00 07:00 Intake Total 1670.58 ml 475.5 ml Output Total 540 ml 740 ml Balance 1130.58 ml -264.5 ml IV Total 950.58 ml 115.5 ml Tube Feeding 720 ml 360 ml Output Urine Total 540 ml 740 ml # Bowel Movements 2 Labs Test 06/09/20 08:28 06/09/20 11:23 06/11/20 05:55 06/11/20 07:48 Arterial Blood pH 7.360 (7.350-7.450) 7.401 (7.350-7.450) Arterial Blood Partial Pressure CO2 65.3 mmHg (35.0-45.0) 71.4 mmHg (35.0-45.0) Arterial Blood Partial Pressure O2 61.9 mmHg (75.0-100.0) 83.4 mmHg (75.0-100.0) Arterial Blood HCO3 36.1 mmol/L (22.0-26.0) 43.3 mmol/L (22.0-26.0) Arterial Blood Oxygen Saturation 89.3 % (95-100) 95.3 % (95-100) Arterial Blood Base Excess 8.6 (-2-2) 15.7 (-2-2) Jreemiah Test Positive Positive White Blood Count 8.5 K/UL (4.8-10.8) Red Blood Count 3.39 M/UL (4.20-5.40) Hemoglobin 9.8 G/DL (12.0-16.0) Hematocrit 31.7 % (37.0-47.0) Mean Corpuscular Volume 94 FL (80-99) Mean Corpuscular Hemoglobin 28.9 PG (27.0-31.0) Mean Corpuscular Hemoglobin Concent 30.9 G/DL (32.0-36.0) Red Cell Distribution Width 15.4 % (11.6-14.8) Platelet Count 156 K/UL (150-450) Mean Platelet Volume 8.6 FL (6.5-10.1) Neutrophils (%) (Auto) 74.6 % (45.0-75.0) Lymphocytes (%) (Auto) 19.3 % (20.0-45.0) Monocytes (%) (Auto) 2.4 % (1.0-10.0) Eosinophils (%) (Auto) 2.9 % (0.0-3.0) Basophils (%) (Auto) 0.9 % (0.0-2.0) D-Dimer 29.59 mg/L FEU (0.00-0.49) Sodium Level 143 MMOL/L (136-145) Potassium Level 4.5 MMOL/L (3.5-5.1) Chloride Level 103 MMOL/L (98-107) Carbon Dioxide Level 39 MMOL/L (21-32) Anion Gap 1 mmol/L (5-15) Blood Urea Nitrogen 25 mg/dL (7-18) Creatinine 0.7 MG/DL (0.55-1.30) Estimat Glomerular Filtration Rate > 60 mL/min (>60) Glucose Level 117 MG/DL (74-106) Calcium Level 8.9 MG/DL (8.5-10.1) Test 06/12/20 04:25 White Blood Count 11.9 K/UL (4.8-10.8) Red Blood Count 3.60 M/UL (4.20-5.40) Hemoglobin 10.4 G/DL (12.0-16.0) Hematocrit 33.0 % (37.0-47.0) Mean Corpuscular Volume 92 FL (80-99) Mean Corpuscular Hemoglobin 28.9 PG (27.0-31.0) Mean Corpuscular Hemoglobin Concent 31.6 G/DL (32.0-36.0) Red Cell Distribution Width 14.9 % (11.6-14.8) Platelet Count 192 K/UL (150-450) Mean Platelet Volume 8.0 FL (6.5-10.1) Neutrophils (%) (Auto) % (45.0-75.0) Lymphocytes (%) (Auto) % (20.0-45.0) Monocytes (%) (Auto) % (1.0-10.0) Eosinophils (%) (Auto) % (0.0-3.0) Basophils (%) (Auto) % (0.0-2.0) Sodium Level 138 MMOL/L (136-145) Potassium Level 3.5 MMOL/L (3.5-5.1) Chloride Level 95 MMOL/L (98-107) Carbon Dioxide Level 40 MMOL/L (21-32) Anion Gap 2 mmol/L (5-15) Blood Urea Nitrogen 23 mg/dL (7-18) Creatinine 0.9 MG/DL (0.55-1.30) Estimat Glomerular Filtration Rate > 60 mL/min (>60) Glucose Level 112 MG/DL (74-106) Calcium Level 8.8 MG/DL (8.5-10.1) Micro Microbiology Date/Time Source Procedure Growth Status 06/11/20 11:13 Blood Received Height (Feet): 5 Height (Inches): 5.00 Weight (Pounds): 308 Objective GeNL: nv Pulm: vent++ CV: rrr Abd: soft, nt, nd Ext: no cce Myron Condon MD Jun 12, 2020 07:40
[2020-06-12] MEDS: Enoxaparin 40mg Inj SUBQ SCH (09:00)
--- NOTE | 2020-06-12 09:12 | General Progress Note ---
Subjective Constitutional: Reports: weakness Allergies: Coded Allergies: No Known Allergies (Unverified , 05/28/20) All Systems: reviewed and negative except above Subjective intubated sedatde in icu Objective Last 24 Hour Vital Signs Date Time Temp Pulse Resp B/P (MAP) Pulse Ox O2 Delivery O2 Flow Rate FiO2 06/12/20 08:00 Mechanical Ventilator Mechanical Ventilator 06/12/20 08:00 21 Mechanical Ventilator 80 06/12/20 08:00 21 115/61 Mechanical Ventilator 80 06/12/20 08:00 80 06/12/20 08:00 100.8 119 21 115/61 (79) 96 06/12/20 07:00 25 Mechanical Ventilator 80 06/12/20 07:00 30 101/54 Mechanical Ventilator 80 06/12/20 07:00 115 22 101/54 (70) 96 06/12/20 06:30 88 22 06/12/20 06:00 111 22 91/49 (63) 96 06/12/20 06:00 28 Mechanical Ventilator 80 06/12/20 06:00 25 91/49 Mechanical Ventilator 80 06/12/20 05:00 30 Mechanical Ventilator 30 06/12/20 05:00 20 91/49 Mechanical Ventilator 80 06/12/20 05:00 111 18 93/56 (68) 96 06/12/20 04:00 105 06/12/20 04:00 Mechanical Ventilator Mechanical Ventilator 06/12/20 04:00 28 Mechanical Ventilator 80 06/12/20 04:00 26 93/56 Mechanical Ventilator 80 06/12/20 04:00 70 06/12/20 04:00 98.0 107 19 96/49 (65) 97 06/12/20 03:27 107 19 80 06/12/20 03:07 111 19 95/58 (70) 95 06/12/20 03:00 25 Mechanical Ventilator 90 06/12/20 03:00 20 93/60 Mechanical Ventilator 80 06/12/20 03:00 111 18 116/66 (83) 94 06/12/20 02:00 104 22 116/66 (83) 94 06/12/20 02:00 25 Mechanical Ventilator 80 06/12/20 02:00 25 95/65 Mechanical Ventilator 80 06/12/20 01:00 105 06/12/20 01:00 96 21 126/63 (84) 92 06/12/20 01:00 23 Mechanical Ventilator 70 06/12/20 01:00 23 126/63 Mechanical Ventilator 70 06/12/20 00:00 70 06/12/20 00:00 23 Mechanical Ventilator 70 06/12/20 00:00 24 126/63 Mechanical Ventilator 70 06/12/20 00:00 98.0 110 27 114/77 (89) 94 06/12/20 00:00 Mechanical Ventilator Mechanical Ventilator 06/11/20 23:00 118 27 130/65 (86) 93 06/11/20 23:00 23 70 06/11/20 23:00 20 130/65 Mechanical Ventilator 70 06/11/20 22:55 118 25 80 06/11/20 22:00 108 22 116/67 (83) 94 06/11/20 22:00 25 Mechanical Ventilator 70 06/11/20 22:00 21 116/119 Mechanical Ventilator 70 06/11/20 21:00 115 22 121/73 (89) 94 06/11/20 21:00 25 Mechanical Ventilator 70 06/11/20 21:00 28 121/76 Mechanical Ventilator 70 06/11/20 20:07 25 120/70 Mechanical Ventilator 70 06/11/20 20:00 Mechanical Ventilator Mechanical Ventilator 06/11/20 20:00 22 70 06/11/20 20:00 28 120/70 Mechanical Ventilator 70 06/11/20 20:00 109 06/11/20 20:00 70 06/11/20 20:00 100.0 129 27 120/70 (87) 93 06/11/20 19:30 111 23 80 06/11/20 19:19 20 Mechanical Ventilator 70 06/11/20 19:00 20 Mechanical Ventilator 70 06/11/20 19:00 22 124/81 Mechanical Ventilator 70 06/11/20 19:00 104 22 124/81 (95) 91 06/11/20 18:00 96 20 115/61 (79) 93 06/11/20 18:00 20 Mechanical Ventilator 70 06/11/20 18:00 20 115/61 Mechanical Ventilator 70 06/11/20 17:00 103 22 125/68 (87) 92 06/11/20 17:00 22 Mechanical Ventilator 70 06/11/20 17:00 22 125/68 Mechanical Ventilator 70 06/11/20 16:00 100.4 100 20 112/53 (72) 97 06/11/20 16:00 70 06/11/20 16:00 20 Mechanical Ventilator 70 06/11/20 16:00 20 112/53 Mechanical Ventilator 70 06/11/20 16:00 Mechanical Ventilator Mechanical Ventilator 06/11/20 15:26 103 06/11/20 15:24 100.4 06/11/20 15:20 99 20 70 06/11/20 15:00 114 23 142/66 (91) 95 06/11/20 15:00 23 Mechanical Ventilator 70 06/11/20 15:00 23 142/66 Mechanical Ventilator 70 06/11/20 14:00 98 19 98/57 (71) 98 06/11/20 14:00 20 Mechanical Ventilator 70 06/11/20 14:00 20 98/57 Mechanical Ventilator 70 06/11/20 13:30 98 19 115/53 (73) 98 06/11/20 13:15 119 24 136/70 (92) 98 06/11/20 13:00 20 Mechanical Ventilator 70 06/11/20 13:00 20 107/57 Mechanical Ventilator 70 06/11/20 13:00 98 20 107/57 (74) 99 06/11/20 12:45 103 20 110/59 (76) 99 06/11/20 12:30 100.2 101 19 109/60 (76) 98 06/11/20 12:15 104 19 122/79 (93) 99 06/11/20 12:00 106 19 118/62 (80) 98 06/11/20 12:00 Mechanical Ventilator Mechanical Ventilator 06/11/20 12:00 19 Mechanical Ventilator 70 06/11/20 12:00 19 118/62 Mechanical Ventilator 70 06/11/20 12:00 70 06/11/20 11:58 106 19 119/61 (80) 98 06/11/20 11:56 106 06/11/20 11:45 19 Mechanical Ventilator 70 06/11/20 11:45 106 19 119/61 (80) 98 06/11/20 11:15 109 22 70 06/11/20 11:00 19 Mechanical Ventilator 70 06/11/20 11:00 19 129/71 Mechanical Ventilator 70 06/11/20 11:00 115 19 129/71 (90) 97 06/11/20 10:00 109 20 127/73 (91) 98 06/11/20 10:00 20 Mechanical Ventilator 70 06/11/20 10:00 20 127/73 Mechanical Ventilator 70 06/11/20 09:45 112 21 101/56 (71) 96 Intake and Output 06/11/20 06/12/20 19:00 07:00 Intake Total 1670.58 ml 1494.5 ml Output Total 540 ml 1305 ml Balance 1130.58 ml 189.5 ml IV Total 950.58 ml 774.5 ml Tube Feeding 720 ml 720 ml Output Urine Total 540 ml 1305 ml # Bowel Movements 2 2 Laboratory Tests 06/12/20 04:25: White Blood Count 11.9H, Red Blood Count 3.60L, Hemoglobin 10.4L, Hematocrit 33.0L, Mean Corpuscular Volume 92, Mean Corpuscular Hemoglobin 28.9, Mean Corpuscular Hemoglobin Concent 31.6L, Red Cell Distribution Width 14.9H, Platelet Count 192, Mean Platelet Volume 8.0, Neutrophils (%) (Auto) , Lymphocytes (%) (Auto) , Monocytes (%) (Auto) , Eosinophils (%) (Auto) , Basophils (%) (Auto) , Sodium Level 138, Potassium Level 3.5, Chloride Level 95L , Carbon Dioxide Level 40H, Anion Gap 2L, Blood Urea Nitrogen 23H, Creatinine 0.9, Estimat Glomerular Filtration Rate > 60, Glucose Level 112H, Calcium Level 8.8 06/12/20 08:17: Arterial Blood pH 7.500H, Arterial Blood Partial Pressure CO2 49.1H, Arterial Blood Partial Pressure O2 60.1L, Arterial Blood HCO3 37.4H, Arterial Blood Oxygen Saturation 90.4L, Arterial Blood Base Excess 12.6*H, Jeremiah Test Positive Height (Feet): 5 Height (Inches): 5.00 Weight (Pounds): 308 General Appearance: lethargic EENT: normal ENT inspection Neck: normal alignment Cardiovascular: normal peripheral pulses, normal rate, regular rhythm Respiratory/Chest: chest wall non-tender, lungs clear, normal breath sounds Abdomen: normal bowel sounds, non tender, soft Extremities: normal inspection Edema: no edema noted Arm (L), no edema noted Arm (R), no edema noted Leg (L), no edema noted Leg (R), no edema noted Pedal (L), no edema noted Pedal (R), no edema noted Generalized Neurologic: motor weakness Skin: normal pigmentation, warm/dry Assessment/Plan Problem List: (1) Hypoxia ICD Codes: R09.02 - Hypoxemia SNOMED: 077556526 (2) Respiratory failure ICD Codes: J96.90 - Respiratory failure, unspecified, unspecified whether with hypoxia or hypercapnia SNOMED: 620543490 (3) Respiratory distress ICD Codes: R06.03 - Acute respiratory distress; J12.82 - Pneumonia due to coronavirus disease 2019 SNOMED: 077539211 (4) Pneumonia due to COVID-19 virus ICD Codes: U07.1 - COVID-19; J12.82 - Pneumonia due to coronavirus disease 2019 SNOMED: 259361227864515066 Status: unchanged Assessment/Plan: vent abx id pulm f/u cbc bmp am Tank Del Cid DO Jun 12, 2020 09:12
--- NOTE | 2020-06-12 09:40 | NUR ---
NURSE NOTES: Due medic Lovenox hold,pt with hematuria,cold compress applied to forehead ,Pt's temp 100.8,run out of Tylenol 650 in the omnicelle,will give Tylenol when available.
[2020-06-12] MEDS: Pantoprazole Inj IVP SCH (09:42)
[2020-06-12] MEDS: Docusate 100mg/10ml Liq GT SCH ×2 (09:42→20:28)
[2020-06-12] MEDS: Solu-MEDROL 40mg Inj IVP SCH (09:43)
--- NOTE | 2020-06-12 11:49 | Infectious Diseases Prog Note ---
Assessment/Plan Assessment/Plan antibiotics : zosyn A 1. covid 19 pneumonia on 80% Fi O2 with 94 % saturation s/p remdesivir 2. respiratory failure P 1. continue zosyn 2. continue solumedrol 3. continue isolation Subjective ROS Limited/Unobtainable: Yes Allergies: Coded Allergies: No Known Allergies (Unverified , 05/28/20) Objective Last 24 Hour Vital Signs Date Time Temp Pulse Resp B/P (MAP) Pulse Ox O2 Delivery O2 Flow Rate FiO2 06/12/20 11:00 133 28 115/68 (84) 94 06/12/20 10:00 100.8 125 28 110/56 (74) 96 06/12/20 10:00 28 Mechanical Ventilator 80 06/12/20 10:00 24 110/56 Mechanical Ventilator 80 06/12/20 09:00 100.3 122 22 108/62 (77) 95 06/12/20 09:00 24 Mechanical Ventilator 80 06/12/20 09:00 24 108/68 Mechanical Ventilator 80 06/12/20 08:00 Mechanical Ventilator Mechanical Ventilator 06/12/20 08:00 124 06/12/20 08:00 21 Mechanical Ventilator 80 06/12/20 08:00 21 115/61 Mechanical Ventilator 80 06/12/20 08:00 80 06/12/20 08:00 100.8 119 21 115/61 (79) 96 06/12/20 07:15 120 22 80 06/12/20 07:00 25 Mechanical Ventilator 80 06/12/20 07:00 30 101/54 Mechanical Ventilator 80 06/12/20 07:00 115 22 101/54 (70) 96 06/12/20 06:30 88 22 06/12/20 06:00 111 22 91/49 (63) 96 06/12/20 06:00 28 Mechanical Ventilator 80 06/12/20 06:00 25 91/49 Mechanical Ventilator 80 06/12/20 05:00 30 Mechanical Ventilator 30 06/12/20 05:00 20 91/49 Mechanical Ventilator 80 06/12/20 05:00 111 18 93/56 (68) 96 06/12/20 04:00 105 06/12/20 04:00 Mechanical Ventilator Mechanical Ventilator 06/12/20 04:00 28 Mechanical Ventilator 80 06/12/20 04:00 26 93/56 Mechanical Ventilator 80 06/12/20 04:00 70 1/20/21 04:00 98.0 107 19 96/49 (65) 97 06/12/20 03:27 107 19 80 06/12/20 03:07 111 19 95/58 (70) 95 06/12/20 03:00 25 Mechanical Ventilator 90 06/12/20 03:00 20 93/60 Mechanical Ventilator 80 06/12/20 03:00 111 18 116/66 (83) 94 06/12/20 02:00 104 22 116/66 (83) 94 06/12/20 02:00 25 Mechanical Ventilator 80 06/12/20 02:00 25 95/65 Mechanical Ventilator 80 06/12/20 01:00 105 06/12/20 01:00 96 21 126/63 (84) 92 06/12/20 01:00 23 Mechanical Ventilator 70 06/12/20 01:00 23 126/63 Mechanical Ventilator 70 06/12/20 00:00 70 06/12/20 00:00 23 Mechanical Ventilator 70 06/12/20 00:00 24 126/63 Mechanical Ventilator 70 06/12/20 00:00 98.0 110 27 114/77 (89) 94 06/12/20 00:00 Mechanical Ventilator Mechanical Ventilator 06/11/20 23:00 118 27 130/65 (86) 93 06/11/20 23:00 23 70 06/11/20 23:00 20 130/65 Mechanical Ventilator 70 06/11/20 22:55 118 25 80 06/11/20 22:00 108 22 116/67 (83) 94 06/11/20 22:00 25 Mechanical Ventilator 70 06/11/20 22:00 21 116/119 Mechanical Ventilator 70 06/11/20 21:00 115 22 121/73 (89) 94 06/11/20 21:00 25 Mechanical Ventilator 70 06/11/20 21:00 28 121/76 Mechanical Ventilator 70 06/11/20 20:07 25 120/70 Mechanical Ventilator 70 06/11/20 20:00 Mechanical Ventilator Mechanical Ventilator 06/11/20 20:00 22 70 06/11/20 20:00 28 120/70 Mechanical Ventilator 70 06/11/20 20:00 109 06/11/20 20:00 70 06/11/20 20:00 100.0 129 27 120/70 (87) 93 1/19/21 19:30 111 23 80 06/11/20 19:19 20 Mechanical Ventilator 70 06/11/20 19:00 20 Mechanical Ventilator 70 06/11/20 19:00 22 124/81 Mechanical Ventilator 70 06/11/20 19:00 104 22 124/81 (95) 91 06/11/20 18:00 96 20 115/61 (79) 93 06/11/20 18:00 20 Mechanical Ventilator 70 06/11/20 18:00 20 115/61 Mechanical Ventilator 70 06/11/20 17:00 103 22 125/68 (87) 92 06/11/20 17:00 22 Mechanical Ventilator 70 06/11/20 17:00 22 125/68 Mechanical Ventilator 70 06/11/20 16:00 100.4 100 20 112/53 (72) 97 06/11/20 16:00 70 06/11/20 16:00 20 Mechanical Ventilator 70 06/11/20 16:00 20 112/53 Mechanical Ventilator 70 06/11/20 16:00 Mechanical Ventilator Mechanical Ventilator 06/11/20 15:26 103 06/11/20 15:24 100.4 06/11/20 15:20 99 20 70 06/11/20 15:00 114 23 142/66 (91) 95 06/11/20 15:00 23 Mechanical Ventilator 70 06/11/20 15:00 23 142/66 Mechanical Ventilator 70 06/11/20 14:00 98 19 98/57 (71) 98 06/11/20 14:00 20 Mechanical Ventilator 70 06/11/20 14:00 20 98/57 Mechanical Ventilator 70 06/11/20 13:30 98 19 115/53 (73) 98 06/11/20 13:15 119 24 136/70 (92) 98 06/11/20 13:00 20 Mechanical Ventilator 70 06/11/20 13:00 20 107/57 Mechanical Ventilator 70 06/11/20 13:00 98 20 107/57 (74) 99 06/11/20 12:45 103 20 110/59 (76) 99 06/11/20 12:30 100.2 101 19 109/60 (76) 98 06/11/20 12:15 104 19 122/79 (93) 99 06/11/20 12:00 106 19 118/62 (80) 98 06/11/20 12:00 Mechanical Ventilator Mechanical Ventilator 06/11/20 12:00 19 Mechanical Ventilator 70 06/11/20 12:00 19 118/62 Mechanical Ventilator 70 06/11/20 12:00 70 06/11/20 11:58 106 19 119/61 (80) 98 06/11/20 11:56 106 Height (Feet): 5 Height (Inches): 5.00 Weight (Pounds): 308 Microbiology Date/Time Source Procedure Growth Status 06/11/20 16:15 Sputum Gram Stain - Final Resulted 06/11/20 16:15 Sputum Sputum Culture Pending Resulted 06/11/20 11:13 Blood Received Laboratory Tests Test 06/12/20 04:25 06/12/20 08:17 White Blood Count 11.9 K/UL (4.8-10.8) H Red Blood Count 3.60 M/UL (4.20-5.40) L Hemoglobin 10.4 G/DL (12.0-16.0) L Hematocrit 33.0 % (37.0-47.0) L Mean Corpuscular Volume 92 FL (80-99) Mean Corpuscular Hemoglobin 28.9 PG (27.0-31.0) Mean Corpuscular Hemoglobin Concent 31.6 G/DL (32.0-36.0) L Red Cell Distribution Width 14.9 % (11.6-14.8) H Platelet Count 192 K/UL (150-450) Mean Platelet Volume 8.0 FL (6.5-10.1) Neutrophils (%) (Auto) % (45.0-75.0) Lymphocytes (%) (Auto) % (20.0-45.0) Monocytes (%) (Auto) % (1.0-10.0) Eosinophils (%) (Auto) % (0.0-3.0) Basophils (%) (Auto) % (0.0-2.0) Sodium Level 138 MMOL/L (136-145) Potassium Level 3.5 MMOL/L (3.5-5.1) Chloride Level 95 MMOL/L (98-107) L Carbon Dioxide Level 40 MMOL/L (21-32) H Anion Gap 2 mmol/L (5-15) L Blood Urea Nitrogen 23 mg/dL (7-18) H Creatinine 0.9 MG/DL (0.55-1.30) Estimat Glomerular Filtration Rate > 60 mL/min (>60) Glucose Level 112 MG/DL (74-106) H Calcium Level 8.8 MG/DL (8.5-10.1) Arterial Blood pH 7.500 (7.350-7.450) Arterial Blood Partial Pressure CO2 49.1 mmHg (35.0-45.0) H Arterial Blood Partial Pressure O2 60.1 mmHg (75.0-100.0) L Arterial Blood HCO3 37.4 mmol/L (22.0-26.0) H Arterial Blood Oxygen Saturation 90.4 % (95-100) L Arterial Blood Base Excess 12.6 (-2-2) *H Jeremiah Test Positive Current Medications Medications (Trade) Dose Ordered Sig/Zelda Route PRN Reason Start Time Stop Time Status Last Admin Dose Admin Acetaminophen (Tylenol) 650 mg Q4H PRN NG Temp >100.5 05/31/20 21:45 06/30/20 21:44 06/11/20 14:54 Acetaminophen (Tylenol) 650 mg Q6H PRN NG Mild Pain (Pain Scale 1-3) 06/06/20 18:00 07/06/20 17:59 06/11/20 18:14 Acetazolamide (Diamox) 500 mg EVERY 12 HOURS NG 06/11/20 10:07 06/12/20 21:01 06/12/20 09:42 Chlorhexidine Gluconate (Inna-Hex 2%) 1 applic DAILY@2000 TOPIC 05/30/20 20:00 08/28/20 19:59 06/11/20 20:04 Dextrose (Dextrose 50%) 25 ml Q30M PRN IV Hypoglycemia 06/05/20 10:45 09/03/20 10:44 Dextrose (Dextrose 50%) 50 ml Q30M PRN IV Hypoglycemia 06/05/20 10:45 09/03/20 10:44 Docusate Sodium (Colace) 100 mg Q12HR GT 06/07/20 21:00 07/07/20 20:59 06/12/20 09:42 Enoxaparin Sodium (Lovenox) 40 mg DAILY SUBQ 05/30/20 10:00 08/28/20 09:59 06/08/20 09:08 Fentanyl Citrate 250 ml @ 1 mls/hr Q24H IV 06/07/20 17:01 06/12/20 17:00 06/11/20 20:07 Furosemide 100 mg/ Dextrose 100 ml @ 7.5 mls/hr [id number] IV 06/11/20 11:00 07/11/20 10:59 06/12/20 00:15 Insulin Aspart (NovoLOG) EVERY 6 HOURS SUBQ 06/07/20 00:00 09/03/20 11:59 06/12/20 06:23 Insulin Aspart (NovoLOG) 20 units EVERY 6 HOURS SUBQ 06/09/20 18:00 09/04/20 08:59 06/12/20 06:24 Methylprednisolone Sodium Succinate (Solu-MEDROL) 30 mg DAILY IVP 06/11/20 09:00 09/09/20 08:59 06/12/20 09:43 Midazolam HCl 100 mg/Sodium Chloride 200 ml @ 0 mls/hr Q24H PRN IV sedation 06/08/20 16:30 06/12/20 16:29 06/11/20 19:19 Pantoprazole (Protonix) 40 mg DAILY IVP 06/03/20 09:00 07/03/20 08:59 06/12/20 09:42 Piperacillin Sod/ Tazobactam Sod 3.375 gm/Sodium Chloride 110 ml @ 27.5 mls/hr Q8H IVPB 06/11/20 12:00 06/18/20 11:59 06/12/20 06:04 Polyethylene Glycol (Miralax) 17 gm BEDTIME GT 06/07/20 21:00 07/07/20 20:59 06/09/20 20:08 Sodium Chloride 1,000 ml @ 50 mls/hr Q20H IV 06/06/20 08:00 07/06/20 07:59 06/12/20 04:00 Fili Mcelroy MD Jun 12, 2020 11:49
--- NOTE | 2020-06-12 12:00 | NUR ---
NURSE NOTES: Pt's temp T101.7,ice cold compress applied to forehead ,Tylenol 650 mg given,will continue to monitor pt's temp.
[2020-06-12] MEDS: Acetaminophen 650mg/20.3ml NG PRN ×2 (12:09→17:18)
--- NOTE | 2020-06-12 12:51 | Diagnostic Imaging Report ---
Indication: Cough Technique: One view of the chest Comparison: 06/09/2020 Findings: Bilateral infiltrates are again demonstrated. Stable tube and line positions. Findings are unchanged Impression: Unchanged, over one day, findings as above.
--- NOTE | 2020-06-12 13:04 | NUR ---
Program Aide Group WorkReception Interviewer SI: COVID PNA, ETT/Vent support T-101.7 (ax), HR 134, RR 27, BP 126/61, AC 15, TV 500, PEEP 12, FiO2 80%, O2 sat 97% WBC 11.9, BUN 23 Chest X ray improved aeration of the lungs, patchy consolidations in L, greater than right. IS: Versed GTT Fentanyl GTT Solu-Medrol IVP q 24h Rocephin IV q 24h Lovenox SQ QD Protonix IVP QD Zosyn IV q 8 h Lasix gtt ICU status
--- NOTE | 2020-06-12 13:04 | NUR ---
RADIOLOGY DEPT. CHEST X-RAY DONE.-P.DYE
--- NOTE | 2020-06-12 13:05 | Consultation ---
History of Present Illness General Date patient seen: Jun 12, 2020 Reason for Hospitalization: Dyspnea/Respdistress Present Illness HPI 50-year-old female morbidly obese presented to [facility] with hypoxia shortness of breath from home identified worsening currently intubated intensive care unit on support with acute worsening leukocytosis abnormal labs and requiring increased support from ventilator. Surgery called to evaluate assist with care. Patient seen, patient evaluate, chart reviewed Allergies: Coded Allergies: No Known Allergies (Unverified , 05/28/20) COVID-19 Screening Contact w/high risk pt: Yes Experienced COVID-19 symptoms?: Yes Coronavirus symptoms experienc: Fever (T>100.4F or >38C), Shortness of Breath, Cough Patient History Limited by: medical condition History Provided By: Medical Record, PMD Healthcare decision maker Resuscitation status Advanced Directive on File Past Medical/Surgical History Past Medical/Surgical History: (1) Respiratory distress (2) Respiratory failure (3) Hypoxia (4) Pneumonia due to COVID-19 virus (5) Diabetes mellitus out of control Review of Systems Review of Symptoms General ROS: no weight loss or fever Psychological ROS: no depression or mood changes, no memory loss Ophthalmic ROS: no visual changes or eye irritation ENT ROS: no nasal congestion, hearing loss, dizziness Allergy and Immunology ROS: no allergic symptoms or urticaria Hematological and Lymphatic ROS: no swollen glands, unusual bleeding or bruising Endocrine ROS: no polyuria, polydipsia, weight changes, temperature intolerance Respiratory ROS: no cough, shortness of breath, or wheezing Cardiovascular ROS: no chest pain or dyspnea on exertion Gastrointestinal ROS: denies abdominal pain, bright red blood in stool. Musculoskeletal ROS: no myalgias or arthralgias Neurological ROS: no TIA or stroke symptoms Dermatological ROS: no new or changing skin lesions, rashes or pruritis Limited given patient's current medical condition tends. Physical Exam Physical Exam General appearance: Moderate o distress, appears stated age Head: Normocephalic, without obvious abnormality, atraumatic Eyes: conjunctivae/corneas clear. PERRL, EOM's intact. Fundi benign Throat: Lips, mucosa, and tongue normal. Teeth and gums normal ET tube in place Neck: supple, symmetrical, trachea midline, no adenopathy, thyroid: not enlarged, symmetric, no tenderness/mass/nodules, no carotid bruit and no JVD Lungs: Decreased to auscultation bilaterally Heart: regular rate and rhythm, S1, S2 normal, no murmur, click, rub or gallop Abdomen: soft, non-tender. Bowel sounds normal. No masses, no organomegaly Extremities: extremities normal, atraumatic, no cyanosis or edema Pulses: 2+ and symmetric Skin: Skin color, texture, turgor normal. No rashes or lesions Neurologic: Grossly normal Last 24 Hour Vital Signs Date Time Temp Pulse Resp B/P (MAP) Pulse Ox O2 Delivery O2 Flow Rate FiO2 06/12/20 12:39 101.7 06/12/20 12:00 80 06/12/20 12:00 134 06/12/20 12:00 Mechanical Ventilator Mechanical Ventilator 06/12/20 12:00 101.7 130 27 126/61 (82) 97 06/12/20 11:00 133 28 115/68 (84) 94 06/12/20 10:00 100.8 125 28 110/56 (74) 96 06/12/20 10:00 28 Mechanical Ventilator 80 06/12/20 10:00 24 110/56 Mechanical Ventilator 80 06/12/20 09:00 100.3 122 22 108/62 (77) 95 06/12/20 09:00 24 Mechanical Ventilator 80 06/12/20 09:00 24 108/68 Mechanical Ventilator 80 06/12/20 08:00 Mechanical Ventilator Mechanical Ventilator 06/12/20 08:00 124 06/12/20 08:00 21 Mechanical Ventilator 80 06/12/20 08:00 21 115/61 Mechanical Ventilator 80 06/12/20 08:00 80 06/12/20 08:00 100.8 119 21 115/61 (79) 96 06/12/20 07:15 120 22 80 06/12/20 07:00 25 Mechanical Ventilator 80 06/12/20 07:00 30 101/54 Mechanical Ventilator 80 06/12/20 07:00 115 22 101/54 (70) 96 06/12/20 06:30 88 22 06/12/20 06:00 111 22 91/49 (63) 96 06/12/20 06:00 28 Mechanical Ventilator 80 06/12/20 06:00 25 91/49 Mechanical Ventilator 80 06/12/20 05:00 30 Mechanical Ventilator 30 06/12/20 05:00 20 91/49 Mechanical Ventilator 80 06/12/20 05:00 111 18 93/56 (68) 96 06/12/20 04:00 105 06/12/20 04:00 Mechanical Ventilator Mechanical Ventilator 06/12/20 04:00 28 Mechanical Ventilator 80 06/12/20 04:00 26 93/56 Mechanical Ventilator 80 06/12/20 04:00 70 06/12/20 04:00 98.0 107 19 96/49 (65) 97 06/12/20 03:27 107 19 80 06/12/20 03:07 111 19 95/58 (70) 95 06/12/20 03:00 25 Mechanical Ventilator 90 06/12/20 03:00 20 93/60 Mechanical Ventilator 80 06/12/20 03:00 111 18 116/66 (83) 94 06/12/20 02:00 104 22 116/66 (83) 94 06/12/20 02:00 25 Mechanical Ventilator 80 06/12/20 02:00 25 95/65 Mechanical Ventilator 80 06/12/20 01:00 105 06/12/20 01:00 96 21 126/63 (84) 92 06/12/20 01:00 23 Mechanical Ventilator 70 06/12/20 01:00 23 126/63 Mechanical Ventilator 70 06/12/20 00:00 70 06/12/20 00:00 23 Mechanical Ventilator 70 06/12/20 00:00 24 126/63 Mechanical Ventilator 70 06/12/20 00:00 98.0 110 27 114/77 (89) 94 06/12/20 00:00 Mechanical Ventilator Mechanical Ventilator 06/11/20 23:00 118 27 130/65 (86) 93 06/11/20 23:00 23 70 06/11/20 23:00 20 130/65 Mechanical Ventilator 70 06/11/20 22:55 118 25 80 06/11/20 22:00 108 22 116/67 (83) 94 06/11/20 22:00 25 Mechanical Ventilator 70 06/11/20 22:00 21 116/119 Mechanical Ventilator 70 06/11/20 21:00 115 22 121/73 (89) 94 06/11/20 21:00 25 Mechanical Ventilator 70 06/11/20 21:00 28 121/76 Mechanical Ventilator 70 06/11/20 20:07 25 120/70 Mechanical Ventilator 70 06/11/20 20:00 Mechanical Ventilator Mechanical Ventilator 06/11/20 20:00 22 70 06/11/20 20:00 28 120/70 Mechanical Ventilator 70 06/11/20 20:00 109 06/11/20 20:00 70 06/11/20 20:00 100.0 129 27 120/70 (87) 93 06/11/20 19:30 111 23 80 06/11/20 19:19 20 Mechanical Ventilator 70 06/11/20 19:00 20 Mechanical Ventilator 70 06/11/20 19:00 22 124/81 Mechanical Ventilator 70 06/11/20 19:00 104 22 124/81 (95) 91 06/11/20 18:00 96 20 115/61 (79) 93 06/11/20 18:00 20 Mechanical Ventilator 70 06/11/20 18:00 20 115/61 Mechanical Ventilator 70 06/11/20 17:00 103 22 125/68 (87) 92 06/11/20 17:00 22 Mechanical Ventilator 70 06/11/20 17:00 22 125/68 Mechanical Ventilator 70 06/11/20 16:00 100.4 100 20 112/53 (72) 97 06/11/20 16:00 70 06/11/20 16:00 20 Mechanical Ventilator 70 06/11/20 16:00 20 112/53 Mechanical Ventilator 70 06/11/20 16:00 Mechanical Ventilator Mechanical Ventilator 06/11/20 15:26 103 06/11/20 15:24 100.4 06/11/20 15:20 99 20 70 06/11/20 15:00 114 23 142/66 (91) 95 06/11/20 15:00 23 Mechanical Ventilator 70 06/11/20 15:00 23 142/66 Mechanical Ventilator 70 06/11/20 14:00 98 19 98/57 (71) 98 06/11/20 14:00 20 Mechanical Ventilator 70 06/11/20 14:00 20 98/57 Mechanical Ventilator 70 06/11/20 13:30 98 19 115/53 (73) 98 06/11/20 13:15 119 24 136/70 (92) 98 Intake and Output 06/11/20 06/12/20 19:00 07:00 Intake Total 1670.58 ml 1494.5 ml Output Total 540 ml 1305 ml Balance 1130.58 ml 189.5 ml IV Total 950.58 ml 774.5 ml Tube Feeding 720 ml 720 ml Output Urine Total 540 ml 1305 ml # Bowel Movements 2 2 Laboratory Tests Test 06/12/20 04:25 06/12/20 08:17 White Blood Count 11.9 K/UL (4.8-10.8) H Red Blood Count 3.60 M/UL (4.20-5.40) L Hemoglobin 10.4 G/DL (12.0-16.0) L Hematocrit 33.0 % (37.0-47.0) L Mean Corpuscular Volume 92 FL (80-99) Mean Corpuscular Hemoglobin 28.9 PG (27.0-31.0) Mean Corpuscular Hemoglobin Concent 31.6 G/DL (32.0-36.0) L Red Cell Distribution Width 14.9 % (11.6-14.8) H Platelet Count 192 K/UL (150-450) Mean Platelet Volume 8.0 FL (6.5-10.1) Neutrophils (%) (Auto) % (45.0-75.0) Lymphocytes (%) (Auto) % (20.0-45.0) Monocytes (%) (Auto) % (1.0-10.0) Eosinophils (%) (Auto) % (0.0-3.0) Basophils (%) (Auto) % (0.0-2.0) Sodium Level 138 MMOL/L (136-145) Potassium Level 3.5 MMOL/L (3.5-5.1) Chloride Level 95 MMOL/L (98-107) L Carbon Dioxide Level 40 MMOL/L (21-32) H Anion Gap 2 mmol/L (5-15) L Blood Urea Nitrogen 23 mg/dL (7-18) H Creatinine 0.9 MG/DL (0.55-1.30) Estimat Glomerular Filtration Rate > 60 mL/min (>60) Glucose Level 112 MG/DL (74-106) H Calcium Level 8.8 MG/DL (8.5-10.1) Arterial Blood pH 7.500 (7.350-7.450) Arterial Blood Partial Pressure CO2 49.1 mmHg (35.0-45.0) H Arterial Blood Partial Pressure O2 60.1 mmHg (75.0-100.0) L Arterial Blood HCO3 37.4 mmol/L (22.0-26.0) H Arterial Blood Oxygen Saturation 90.4 % (95-100) L Arterial Blood Base Excess 12.6 (-2-2) *H Jeremiah Test Positive Microbiology Date/Time Source Procedure Growth Status 06/11/20 16:15 Sputum Gram Stain - Final Resulted 06/11/20 16:15 Sputum Sputum Culture Pending Resulted Height (Feet): 5 Height (Inches): 5.00 Weight (Pounds): 308 Medications Current Medications Medications (Trade) Dose Ordered Sig/Zelda Route PRN Reason Start Time Stop Time Status Last Admin Dose Admin Acetaminophen (Tylenol) 650 mg Q4H PRN NG Temp >100.5 05/31/20 21:45 06/30/20 21:44 06/12/20 12:09 Acetaminophen (Tylenol) 650 mg Q6H PRN NG Mild Pain (Pain Scale 1-3) 06/06/20 18:00 07/06/20 17:59 06/11/20 18:14 Acetazolamide (Diamox) 500 mg EVERY 12 HOURS NG 06/11/20 10:07 06/12/20 21:01 06/12/20 09:42 Chlorhexidine Gluconate (Inna-Hex 2%) 1 applic DAILY@2000 TOPIC 05/30/20 20:00 08/28/20 19:59 06/11/20 20:04 Dextrose (Dextrose 50%) 25 ml Q30M PRN IV Hypoglycemia 06/05/20 10:45 09/03/20 10:44 Dextrose (Dextrose 50%) 50 ml Q30M PRN IV Hypoglycemia 06/05/20 10:45 09/03/20 10:44 Docusate Sodium (Colace) 100 mg Q12HR GT 06/07/20 21:00 07/07/20 20:59 06/12/20 09:42 Enoxaparin Sodium (Lovenox) 40 mg DAILY SUBQ 05/30/20 10:00 08/28/20 09:59 06/08/20 09:08 Fentanyl Citrate 250 ml @ 1 mls/hr Q24H IV 06/07/20 17:01 06/12/20 17:00 06/11/20 20:07 Furosemide 100 mg/ Dextrose 100 ml @ 7.5 mls/hr [id number] IV 06/11/20 11:00 07/11/20 10:59 06/12/20 00:15 Insulin Aspart (NovoLOG) EVERY 6 HOURS SUBQ 06/07/20 00:00 09/03/20 11:59 06/12/20 12:01 Insulin Aspart (NovoLOG) 20 units EVERY 6 HOURS SUBQ 06/09/20 18:00 09/04/20 08:59 06/12/20 12:03 Methylprednisolone Sodium Succinate (Solu-MEDROL) 30 mg DAILY IVP 06/11/20 09:00 09/09/20 08:59 06/12/20 09:43 Midazolam HCl 100 mg/Sodium Chloride 200 ml @ 0 mls/hr Q24H PRN IV sedation 06/08/20 16:30 06/12/20 16:29 06/11/20 19:19 Pantoprazole (Protonix) 40 mg DAILY IVP 06/03/20 09:00 07/03/20 08:59 06/12/20 09:42 Piperacillin Sod/ Tazobactam Sod 3.375 gm/Sodium Chloride 110 ml @ 27.5 mls/hr Q8H IVPB 06/11/20 12:00 06/18/20 11:59 06/12/20 11:49 Polyethylene Glycol (Miralax) 17 gm BEDTIME GT 06/07/20 21:00 07/07/20 20:59 06/09/20 20:08 Sodium Chloride 1,000 ml @ 50 mls/hr Q20H IV 06/06/20 08:00 07/06/20 07:59 06/12/20 04:00 Assessment/Plan Problem List: (1) Respiratory distress ICD Codes: R06.03 - Acute respiratory distress; J12.82 - Pneumonia due to coronavirus disease 2019 SNOMED: 190545414 (2) Respiratory failure Assessment & Plan: 50-year-old female Covid positive respiratory insufficiency intubated on ventilatory support declining. Leukocytosis increase oxygen requirement. Vent settings per pulmonology reviewed identified and agree. Unfortunately further surgical invention at this time is not appropriate as patient is not a candidate and her current condition. Prognosis overall guarded. Tracheostomy can be considered in the future if recovering or shows improvement and requires unable to be weaned from ventilator support. Currently okay for nutritional optimization with NG tube. Will need significant monitoring for decubitus formation given patient's size and condition. Okay for air mattress tolerated. Turn every 2 hours as tolerated. Patient is otherwise critically ill and blood pressure labile. Will need to monitor closely.Bilateral infiltrates are again demonstrated. Stable tube and line positions. ICD Codes: J96.90 - Respiratory failure, unspecified, unspecified whether with hypoxia or hypercapnia SNOMED: 212395915 (3) Hypoxia ICD Codes: R09.02 - Hypoxemia SNOMED: 823850614 (4) Pneumonia due to COVID-19 virus Assessment & Plan: ++ as per pulm and ID ICD Codes: U07.1 - COVID-19; J12.82 - Pneumonia due to coronavirus disease 2018 SNOMED: 297721758244617293 (5) Diabetes mellitus out of control Assessment & Plan: DAILY ESTIMATED NEEDS: Needs based on Critical care, obesity 11-14kcal/kg actual body wt (140kg) kcals/kg 6869-9274 total kcals 1.5-2.0g prot/kg IBW (64.5kg) g protein/kg 96-129 g total protein 25-30ml/kg abw (83kg) mL/kg 3585-8942 total fluid mLs NUTRITION DIAGNOSIS: Swallowing difficulty R/T respiratory failure as evidenced by pt orally intubated and sedated, on OGT feeds. CURRENT TF: Vital 1.2 goal of 60ml/hr ENTERAL NUTRITION RECOMMENDATIONS: Vital AF 1.2 @ 60ml/hr x 24 hrs to provide 1440ml, 1728kcal, 108g prot, 1168ml free water * Maintain current critical care and carb controlled TF formula of Vital AF * TF @ goal meeds 100% est kcal/prot needs * HOB over 30 degrees/ water flush per MD TF may be lowered to 55ml/hr for improved BG control while maintaining Kcal and pro needs. ADDITIONAL RECOMMENDATIONS: * Calibrated bedscale wt * Monitor Propofol rate, need for TF adjustment-> now off * Monitor BGs closely : now improved, on novolog q 6rs + NISS * Monitor lytes * Rec bowel regimen- now added ICD Codes: E11.65 - Type 2 diabetes mellitus with hyperglycemia SNOMED: 91891524, [id number] Az Devine Jun 12, 2020 13:05
--- NOTE | 2020-06-12 16:18 | NUR ---
NURSE NOTES: Pt with large BM,bed bath given,kept dry and clean,pt with Fever T102,ice compress continue,will give Tylenol 650 mg ogt.
[2020-06-12] MEDS: Midazolam HCl 50mg/10ml vial 100 MG in NS 180 ML IV PRN (17:15)
--- NOTE | 2020-06-12 19:10 | NUR ---
NURSE HAND-OFF REPORT: Latest Vital Signs: Temperature 102.0 , Pulse 118 , B/P 118 /66 , Respiratory Rate 26 , O2 SAT 98 , Mechanical Ventilator, O2 Flow Rate . Vital Sign Comment: unstable,pt febrile all the time EKG Rhythm: Sinus Tachycardia Rhythm change?: N MD Notified?: - MD Response: Latest Meyers Fall Score: 70 Fall Risk: High Risk Safety Measures: Call light Within Reach, Bed Alarm Zone 1, Side Rails Side Rails x2, Bed position Low and Locked. Fall Precautions: Yellow Socks Yellow Gown Door Sign Patient Fall Education Report given to .Alba Veliz RN.
--- NOTE | 2020-06-12 19:20 | NUR ---
NURSE NOTES: Received patient from RAKEL Kwan. patient is sedated. sinus tachycardia on the monitor (HR110). ETT 7.5, 23cm at the lip. vent settings AC 15 TV 500 FiO2 80% PEEP 10, tolerating well. OGT in place and tube feeding running vital AF @60ml/hr, tolerating well. marrero in place and draining well to gravity, hematuria noted. LINDA PICC in place and dressing clean and intact. versed @5mg/hr, fentanyl @90mcg/hr, lasix drip @ 7.5ml/hr, NS @50ml/hr. bed to lowest position and locked. call light within easy reach. side rails up x3. will continue plan of care.
[2020-06-12] MEDS: Dyna-Hex 2% Top Sol 2oz TOPIC SCH (20:28)
[2020-06-12] MEDS: Miralax 17gm pkt GT SCH (20:29)
--- NOTE | 2020-06-12 22:21 | Pulmonology Progress Note ---
Subjective ROS Limited/Unobtainable: Yes Interval Events: Remains intubated Constitutional: Reports: fever, other - Vr=246.5 HEENT: Repors: no symptoms Respiratory: Reports: no symptoms Cardiovascular: Reports: no symptoms Gastrointestinal/Abdominal: Reports: no symptoms Genitourinary: Reports: no symptoms Allergies: Coded Allergies: No Known Allergies (Unverified , 05/28/20) All Systems: reviewed and negative except above Objective Last 24 Hour Vital Signs Date Time Temp Pulse Resp B/P (MAP) Pulse Ox O2 Delivery O2 Flow Rate FiO2 06/12/20 21:00 120 25 122/71 (88) 97 06/12/20 20:00 80 06/12/20 20:00 102.0 116 24 118/66 (83) 97 06/12/20 20:00 111 06/12/20 20:00 Mechanical Ventilator Mechanical Ventilator 06/12/20 19:41 118 26 80 06/12/20 19:00 23 Mechanical Ventilator 80 06/12/20 19:00 23 114/55 Mechanical Ventilator 80 06/12/20 19:00 116 24 118/66 (83) 98 06/12/20 18:00 112 23 114/55 (74) 98 06/12/20 18:00 26 Mechanical Ventilator 80 06/12/20 18:00 26 115/68 Mechanical Ventilator 80 06/12/20 17:48 102.0 06/12/20 17:15 27 Mechanical Ventilator 80 06/12/20 17:15 26 125/71 Mechanical Ventilator 80 06/12/20 17:00 112 26 115/68 (84) 97 06/12/20 16:00 120 06/12/20 16:00 Mechanical Ventilator Mechanical Ventilator 06/12/20 16:00 102.0 112 26 125/71 (89) 97 06/12/20 16:00 80 06/12/20 15:10 116 25 80 06/12/20 15:00 117 27 116/72 (87) 97 06/12/20 15:00 26 Mechanical Ventilator 80 06/12/20 15:00 26 117/68 Mechanical Ventilator 80 06/12/20 14:09 124 26 119/70 (86) 98 06/12/20 14:00 26 Mechanical Ventilator 80 06/12/20 14:00 26 119/70 Mechanical Ventilator 80 06/12/20 13:00 128 26 118/66 (83) 98 06/12/20 13:00 27 Mechanical Ventilator 80 06/12/20 13:00 27 118/66 Mechanical Ventilator 80 06/12/20 12:39 101.7 06/12/20 12:00 80 06/12/20 12:00 134 06/12/20 12:00 Mechanical Ventilator Mechanical Ventilator 06/12/20 12:00 101.7 130 27 126/61 (82) 97 06/12/20 12:00 29 Mechanical Ventilator 80 06/12/20 12:00 29 126/61 Mechanical Ventilator 80 06/12/20 11:10 118 24 80 06/12/20 11:00 27 Mechanical Ventilator 80 06/12/20 11:00 27 115/63 Mechanical Ventilator 80 06/12/20 11:00 133 28 115/68 (84) 94 06/12/20 10:00 100.8 125 28 110/56 (74) 96 06/12/20 10:00 28 Mechanical Ventilator 80 06/12/20 10:00 24 110/56 Mechanical Ventilator 80 06/12/20 09:00 100.3 122 22 108/62 (77) 95 06/12/20 09:00 24 Mechanical Ventilator 80 06/12/20 09:00 24 108/68 Mechanical Ventilator 80 06/12/20 08:00 Mechanical Ventilator Mechanical Ventilator 06/12/20 08:00 124 06/12/20 08:00 21 Mechanical Ventilator 80 06/12/20 08:00 21 115/61 Mechanical Ventilator 80 06/12/20 08:00 80 06/12/20 08:00 100.8 119 21 115/61 (79) 96 06/12/20 07:15 120 22 80 06/12/20 07:00 25 Mechanical Ventilator 80 06/12/20 07:00 30 101/54 Mechanical Ventilator 80 06/12/20 07:00 115 22 101/54 (70) 96 06/12/20 06:30 88 22 06/12/20 06:00 111 22 91/49 (63) 96 06/12/20 06:00 28 Mechanical Ventilator 80 06/12/20 06:00 25 91/49 Mechanical Ventilator 80 06/12/20 05:00 30 Mechanical Ventilator 30 06/12/20 05:00 20 91/49 Mechanical Ventilator 80 06/12/20 05:00 111 18 93/56 (68) 96 06/12/20 04:00 105 06/12/20 04:00 Mechanical Ventilator Mechanical Ventilator 06/12/20 04:00 28 Mechanical Ventilator 80 06/12/20 04:00 26 93/56 Mechanical Ventilator 80 06/12/20 04:00 70 06/12/20 04:00 98.0 107 19 96/49 (65) 97 06/12/20 03:27 107 19 80 06/12/20 03:07 111 19 95/58 (70) 95 06/12/20 03:00 25 Mechanical Ventilator 90 06/12/20 03:00 20 93/60 Mechanical Ventilator 80 06/12/20 03:00 111 18 116/66 (83) 94 06/12/20 02:00 104 22 116/66 (83) 94 06/12/20 02:00 25 Mechanical Ventilator 80 06/12/20 02:00 25 95/65 Mechanical Ventilator 80 06/12/20 01:00 105 06/12/20 01:00 96 21 126/63 (84) 92 06/12/20 01:00 23 Mechanical Ventilator 70 06/12/20 01:00 23 126/63 Mechanical Ventilator 70 06/12/20 00:00 70 06/12/20 00:00 23 Mechanical Ventilator 70 06/12/20 00:00 24 126/63 Mechanical Ventilator 70 06/12/20 00:00 98.0 110 27 114/77 (89) 94 06/12/20 00:00 Mechanical Ventilator Mechanical Ventilator 06/11/20 23:00 118 27 130/65 (86) 93 06/11/20 23:00 23 70 06/11/20 23:00 20 130/65 Mechanical Ventilator 70 06/11/20 22:55 118 25 80 Intake and Output 06/11/20 06/12/20 19:00 07:00 Intake Total 1670.58 ml 1494.5 ml Output Total 540 ml 1305 ml Balance 1130.58 ml 189.5 ml IV Total 950.58 ml 774.5 ml Tube Feeding 720 ml 720 ml Output Urine Total 540 ml 1305 ml # Bowel Movements 2 2 General Appearance: no acute distress HEENT: normocephalic Respiratory: chest wall non-tender Cardiovascular: normal peripheral pulses Abdomen: normal bowel sounds Microbiology Date/Time Source Procedure Growth Status 06/11/20 16:15 Sputum Gram Stain - Final Resulted 06/11/20 16:15 Sputum Sputum Culture Pending Resulted 06/11/20 11:23 Blood Blood Culture - Preliminary NO GROWTH AFTER 24 HOURS Resulted 06/11/20 11:13 Blood Blood Culture - Preliminary NO GROWTH AFTER 24 HOURS Resulted Laboratory Tests 06/12/20 04:25: White Blood Count 11.9H, Red Blood Count 3.60L, Hemoglobin 10.4L, Hematocrit 33.0L, Mean Corpuscular Volume 92, Mean Corpuscular Hemoglobin 28.9, Mean Corpuscular Hemoglobin Concent 31.6L, Red Cell Distribution Width 14.9H, Platelet Count 192, Mean Platelet Volume 8.0, Neutrophils (%) (Auto) , Lymphocytes (%) (Auto) , Monocytes (%) (Auto) , Eosinophils (%) (Auto) , Basophils (%) (Auto) , Sodium Level 138, Potassium Level 3.5, Chloride Level 95L , Carbon Dioxide Level 40H, Anion Gap 2L, Blood Urea Nitrogen 23H, Creatinine 0.9, Estimat Glomerular Filtration Rate > 60, Glucose Level 112H, Calcium Level 8.8 06/12/20 08:17: Arterial Blood pH 7.500H, Arterial Blood Partial Pressure CO2 49.1H, Arterial Blood Partial Pressure O2 60.1L, Arterial Blood HCO3 37.4H, Arterial Blood Oxygen Saturation 90.4L, Arterial Blood Base Excess 12.6*H, Jeremiah Test Positive 06/12/20 11:52: POC Whole Blood Glucose [Pending] Current Medications Medications (Trade) Dose Ordered Sig/Zelda Route PRN Reason Start Time Stop Time Status Last Admin Dose Admin Acetaminophen (Tylenol) 650 mg Q4H PRN NG Temp >100.5 05/31/20 21:45 06/30/20 21:44 06/12/20 17:18 Acetaminophen (Tylenol) 650 mg Q6H PRN NG Mild Pain (Pain Scale 1-3) 06/06/20 18:00 07/06/20 17:59 06/11/20 18:14 Chlorhexidine Gluconate (Inna-Hex 2%) 1 applic DAILY@1999 TOPIC 05/30/20 20:00 08/28/20 19:59 06/12/20 20:28 Dextrose (Dextrose 50%) 25 ml Q30M PRN IV Hypoglycemia 06/05/20 10:45 09/03/20 10:44 Dextrose (Dextrose 50%) 50 ml Q30M PRN IV Hypoglycemia 06/05/20 10:45 09/03/20 10:44 Docusate Sodium (Colace) 100 mg Q12HR GT 06/07/20 21:00 07/07/20 20:59 06/12/20 20:28 Enoxaparin Sodium (Lovenox) 40 mg DAILY SUBQ 05/30/20 10:00 08/28/20 09:59 06/08/20 09:08 Fentanyl Citrate 250 ml @ 1 mls/hr Q24H IV 06/07/20 17:01 06/12/20 23:00 06/11/20 20:07 Furosemide 100 mg/ Dextrose 100 ml @ 7.5 mls/hr [id number] IV 06/11/20 11:00 07/11/20 10:59 06/12/20 18:18 Insulin Aspart (NovoLOG) EVERY 6 HOURS SUBQ 06/07/20 00:00 09/03/20 11:59 06/12/20 18:28 Insulin Aspart (NovoLOG) 20 units EVERY 6 HOURS SUBQ 06/09/20 18:00 09/04/20 08:59 06/12/20 18:30 Methylprednisolone Sodium Succinate (Solu-MEDROL) 30 mg DAILY IVP 06/11/20 09:00 09/09/20 08:59 06/12/20 09:43 Midazolam HCl 100 mg/Sodium Chloride 200 ml @ 0 mls/hr Q24H PRN IV sedation 06/12/20 16:30 06/14/20 16:29 06/12/20 17:15 Pantoprazole (Protonix) 40 mg DAILY IVP 06/03/20 09:00 07/03/20 08:59 06/12/20 09:42 Piperacillin Sod/ Tazobactam Sod 3.375 gm/Sodium Chloride 110 ml @ 27.5 mls/hr Q8H IVPB 06/11/20 12:00 06/18/20 11:59 06/12/20 20:28 Polyethylene Glycol (Miralax) 17 gm BEDTIME GT 06/07/20 21:00 07/07/20 20:59 06/12/20 20:29 Sodium Chloride 1,000 ml @ 50 mls/hr Q20H IV 06/06/20 08:00 07/06/20 07:59 06/12/20 04:00 Assessment/Plan Assessment/Plan 1. COVID-19 pneumonia -Intubated 05/28/20 - We will continue broad-spectrum antibiotics. - On solumedrol -On Rocephin -Continue monitoring SaO2 and keep it >92% -Continue PEEP 10; - Peak airway pressures high; approx 73 - FiO2 100% -> 90 ->80%; will attempt to decrease - ABG 7.40/74/70 - -will continue OGT feeding -Continue sedation -Need to keep patient completely sedated. 2. Hyponatremia -Per primary MD 3. Elevated inflammatory markers - has high D dimer; if higher; Lovenox on hold due to hematuria Javier Nava MD Jun 12, 2020 22:20
[2020-06-13] VITALS (28 sets, daily range): BP systolic 93–136; BP diastolic 52–81
[2020-06-13] MEDS: NovoLOG Insulin Flexpen SUBQ SCH ×10 (00:19→23:27)
[2020-06-13] MEDS: Acetaminophen 650mg/20.3ml NG PRN ×3 (00:26→23:10)
--- NOTE | 2020-06-13 00:26 | NUR ---
NURSE NOTES: noted patient temp of 102.3. tylenol given and cooling measures applied. will reassess
[2020-06-13] MEDS: fentaNYL 2500mcg/NS 250ml 250 ML IV SCH ×2 (00:48)
--- NOTE | 2020-06-13 00:53 | NUR ---
NURSE NOTES: new bag of fentanyl hung. 90mcg/hr. rate 9ml/hr
--- NOTE | 2020-06-13 01:47 | NUR ---
NURSE NOTES: new bag of tube feeding hung, tolerating well. temp still 102, cooling measures continued
[2020-06-13] MEDS: Piperacillin/Tazobactam 3.375 GM in NS 110 ML IVPB SCH ×2 (03:00→20:09)
--- NOTE | 2020-06-13 04:00 | NUR ---
NURSE NOTES: bed bath performed. no BM. repositioned patient. cooling measures continued.
[2020-06-13 05:31] LABS: HEMATOCRIT 32.4 % (37.0-47.0); HEMOGLOBIN 10.5 G/DL (12.0-16.0); MEAN CORPUSCULAR VOLUME 90 FL (80-99); PLATELET COUNT 247 K/UL (150-450); RED BLOOD COUNT 3.59 M/UL (4.20-5.40); RED CELL DISTRIBUTION WIDTH 15.5 % (11.6-14.8); WHITE BLOOD COUNT 15.4 K/UL (4.8-10.8)
[2020-06-13 05:51] LABS: CALCIUM 9.5 MG/DL (8.5-10.1); CREATININE 3.5 MG/DL (0.55-1.30); POTASSIUM 3.8 MMOL/L (3.5-5.1)
--- NOTE | 2020-06-13 06:42 | General Progress Note ---
Subjective ROS Limited/Unobtainable: Yes Allergies: Coded Allergies: No Known Allergies (Unverified , 05/28/20) Subjective events noted interval notes reviewed glucose values in 200 range Item Value Date Time Bedside Blood Glucose 203 mg/dl H 06/13/20 0604 Bedside Blood Glucose 218 mg/dl H 06/13/20 0020 Bedside Blood Glucose 264 mg/dl H 06/12/20 1830 Bedside Blood Glucose 200 mg/dl H 06/12/20 1203 Bedside Blood Glucose 164 mg/dl H 06/12/20 0625 Objective Last 24 Hour Vital Signs Date Time Temp Pulse Resp B/P (MAP) Pulse Ox O2 Delivery O2 Flow Rate FiO2 06/13/20 06:00 119 24 130/79 (96) 95 06/13/20 06:00 24 130/79 Mechanical Ventilator 80 06/13/20 06:00 25 Mechanical Ventilator 80 06/13/20 05:00 118 24 130/79 (96) 95 06/13/20 05:00 25 130/79 Mechanical Ventilator 80 06/13/20 05:00 25 80 06/13/20 04:00 80 06/13/20 04:00 Mechanical Ventilator Mechanical Ventilator 06/13/20 04:00 25 130/79 Mechanical Ventilator 80 06/13/20 04:00 25 80 06/13/20 04:00 121 06/13/20 04:00 102.4 120 22 118/75 (89) 96 06/13/20 03:58 117 23 80 06/13/20 03:00 25 126/67 Mechanical Ventilator 80 06/13/20 03:00 25 Mechanical Ventilator 80 06/13/20 03:00 120 25 126/67 (86) 98 06/13/20 02:00 119 26 118/67 (84) 98 06/13/20 02:00 26 118/67 Mechanical Ventilator 80 06/13/20 02:00 26 Mechanical Ventilator 80 06/13/20 01:00 28 128/65 Mechanical Ventilator 80 06/13/20 01:00 28 Mechanical Ventilator 80 06/13/20 01:00 122 29 128/65 (86) 97 06/13/20 00:56 102.0 06/13/20 00:48 27 117/67 Mechanical Ventilator 80 06/13/20 00:00 80 06/13/20 00:00 120 06/13/20 00:00 27 117/67 Mechanical Ventilator 80 06/13/20 00:00 27 Mechanical Ventilator 80 06/13/20 00:00 27 117/67 Mechanical Ventilator 80 06/13/20 00:00 102.3 120 27 117/67 (84) 97 06/13/20 00:00 Mechanical Ventilator Mechanical Ventilator 06/12/20 23:29 120 24 80 06/12/20 23:00 119 26 123/68 (86) 97 06/12/20 23:00 26 Mechanical Ventilator 80 06/12/20 23:00 26 123/68 Mechanical Ventilator 80 06/12/20 22:00 26 Mechanical Ventilator 80 06/12/20 22:00 26 121/70 Mechanical Ventilator 80 06/12/20 22:00 121 26 121/70 (87) 97 06/12/20 21:00 25 Mechanical Ventilator 80 06/12/20 21:00 25 122/71 Mechanical Ventilator 80 06/12/20 21:00 120 25 122/71 (88) 97 06/12/20 20:00 80 06/12/20 20:00 102.0 116 24 118/66 (83) 97 06/12/20 20:00 111 06/12/20 20:00 24 Mechanical Ventilator 80 06/12/20 20:00 24 118/66 Mechanical Ventilator 80 06/12/20 20:00 Mechanical Ventilator Mechanical Ventilator 06/12/20 19:41 118 26 80 06/12/20 19:00 23 Mechanical Ventilator 80 06/12/20 19:00 23 114/55 Mechanical Ventilator 80 06/12/20 19:00 116 24 118/66 (83) 98 06/12/20 18:00 112 23 114/55 (74) 98 06/12/20 18:00 26 Mechanical Ventilator 80 06/12/20 18:00 26 115/68 Mechanical Ventilator 80 06/12/20 17:48 102.0 06/12/20 17:15 27 Mechanical Ventilator 80 06/12/20 17:15 26 125/71 Mechanical Ventilator 80 06/12/20 17:00 112 26 115/68 (84) 97 06/12/20 16:00 120 06/12/20 16:00 Mechanical Ventilator Mechanical Ventilator 06/12/20 16:00 102.0 112 26 125/71 (89) 97 06/12/20 16:00 80 06/12/20 15:10 116 25 80 06/12/20 15:00 117 27 116/72 (87) 97 06/12/20 15:00 26 Mechanical Ventilator 80 06/12/20 15:00 26 117/68 Mechanical Ventilator 80 06/12/20 14:09 124 26 119/70 (86) 98 06/12/20 14:00 26 Mechanical Ventilator 80 06/12/20 14:00 26 119/70 Mechanical Ventilator 80 06/12/20 13:00 128 26 118/66 (83) 98 06/12/20 13:00 27 Mechanical Ventilator 80 06/12/20 13:00 27 118/66 Mechanical Ventilator 80 06/12/20 12:39 101.7 06/12/20 12:00 80 06/12/20 12:00 134 06/12/20 12:00 Mechanical Ventilator Mechanical Ventilator 06/12/20 12:00 101.7 130 27 126/61 (82) 97 06/12/20 12:00 29 Mechanical Ventilator 80 06/12/20 12:00 29 126/61 Mechanical Ventilator 80 06/12/20 11:10 118 24 80 06/12/20 11:00 27 Mechanical Ventilator 80 06/12/20 11:00 27 115/63 Mechanical Ventilator 80 06/12/20 11:00 133 28 115/68 (84) 94 06/12/20 10:00 100.8 125 28 110/56 (74) 96 06/12/20 10:00 28 Mechanical Ventilator 80 06/12/20 10:00 24 110/56 Mechanical Ventilator 80 06/12/20 09:00 100.3 122 22 108/62 (77) 95 06/12/20 09:00 24 Mechanical Ventilator 80 06/12/20 09:00 24 108/68 Mechanical Ventilator 80 06/12/20 08:00 Mechanical Ventilator Mechanical Ventilator 06/12/20 08:00 124 06/12/20 08:00 21 Mechanical Ventilator 80 06/12/20 08:00 21 115/61 Mechanical Ventilator 80 06/12/20 08:00 80 06/12/20 08:00 100.8 119 21 115/61 (79) 96 06/12/20 07:15 120 22 80 06/12/20 07:00 25 Mechanical Ventilator 80 06/12/20 07:00 30 101/54 Mechanical Ventilator 80 06/12/20 07:00 115 22 101/54 (70) 96 Intake and Output 06/12/20 06/13/20 19:00 07:00 Intake Total 1139.0 ml 1621.5 ml Output Total 360 ml 120 ml Balance 779.0 ml 1501.5 ml Free Water 100 ml 120 ml IV Total 259.0 ml 841.5 ml Tube Feeding 720 ml 660 ml Other 60 ml Output Urine Total 360 ml 120 ml # Voids 30 # Bowel Movements 1 Laboratory Tests 06/12/20 08:17: Arterial Blood pH 7.500H, Arterial Blood Partial Pressure CO2 49.1H, Arterial Blood Partial Pressure O2 60.1L, Arterial Blood HCO3 37.4H, Arterial Blood Oxygen Saturation 90.4L, Arterial Blood Base Excess 12.6*H, Jeremiah Test Positive 06/12/20 11:52: POC Whole Blood Glucose [Pending] 06/13/20 04:15: White Blood Count 15.4H, Red Blood Count 3.59L, Hemoglobin 10.5L, Hematocrit 32.4L, Mean Corpuscular Volume 90, Mean Corpuscular Hemoglobin 29.3, Mean Corpuscular Hemoglobin Concent 32.5, Red Cell Distribution Width 15.5H, Platelet Count 247, Mean Platelet Volume 8.1, Neutrophils (%) (Auto) , Lymphocytes (%) (Auto) , Monocytes (%) (Auto) , Eosinophils (%) (Auto) , Basophils (%) (Auto) , Neutrophils % (Manual) [Pending], Lymphocytes % (Manual) [Pending], Platelet Estimate [Pending], Platelet Morphology [Pending], Sodium Level 140, Potassium Level 3.8, Chloride Level 96L, Carbon Dioxide Level 36H, Anion Gap 8, Blood Urea Nitrogen 55H, Creatinine 3.5#H, Estimat Glomerular Filtration Rate 13.9, Glucose Level 177H, Calcium Level 9.5 Height (Feet): 5 Height (Inches): 5.00 Weight (Pounds): 308 Objective Current Medications Medications (Trade) Dose Ordered Sig/Zelda Route PRN Reason Start Time Stop Time Status Last Admin Dose Admin Acetaminophen (Tylenol) 650 mg Q4H PRN NG Temp >100.5 05/31/20 21:45 06/30/20 21:44 06/13/20 00:26 Acetaminophen (Tylenol) 650 mg Q6H PRN NG Mild Pain (Pain Scale 1-3) 06/06/20 18:00 07/06/20 17:59 06/11/20 18:14 Chlorhexidine Gluconate (Inna-Hex 2%) 1 applic DAILY@2000 TOPIC 05/30/20 20:00 08/28/20 19:59 06/12/20 20:28 Dextrose (Dextrose 50%) 25 ml Q30M PRN IV Hypoglycemia 06/05/20 10:45 09/03/20 10:44 Dextrose (Dextrose 50%) 50 ml Q30M PRN IV Hypoglycemia 06/05/20 10:45 09/03/20 10:44 Docusate Sodium (Colace) 100 mg Q12HR GT 06/07/20 21:00 07/07/20 20:59 06/12/20 20:28 Enoxaparin Sodium (Lovenox) 40 mg DAILY SUBQ 05/30/20 10:00 08/28/20 09:59 06/08/20 09:08 Fentanyl Citrate 250 ml @ 1 mls/hr Q24H IV 06/13/20 01:15 06/15/20 01:14 06/13/20 00:00 Furosemide 100 mg/ Dextrose 100 ml @ 7.5 mls/hr [id number] IV 06/11/20 11:00 07/11/20 10:59 06/12/20 18:18 Insulin Aspart (NovoLOG) EVERY 6 HOURS SUBQ 06/07/20 00:00 09/03/20 11:59 06/13/20 06:04 Insulin Aspart (NovoLOG) 20 units EVERY 6 HOURS SUBQ 06/09/20 18:00 09/04/20 08:59 06/13/20 06:04 Methylprednisolone Sodium Succinate (Solu-MEDROL) 30 mg DAILY IVP 06/11/20 09:00 09/09/20 08:59 06/12/20 09:43 Midazolam HCl 100 mg/Sodium Chloride 200 ml @ 0 mls/hr Q24H PRN IV sedation 06/12/20 16:30 06/14/20 16:29 06/12/20 17:15 Pantoprazole (Protonix) 40 mg DAILY IVP 06/03/20 09:00 07/03/20 08:59 06/12/20 09:42 Piperacillin Sod/ Tazobactam Sod 3.375 gm/Sodium Chloride 110 ml @ 27.5 mls/hr Q8H IVPB 06/11/20 12:00 06/18/20 11:59 06/13/20 03:00 Polyethylene Glycol (Miralax) 17 gm BEDTIME GT 06/07/20 21:00 07/07/20 20:59 06/12/20 20:29 Sodium Chloride 1,000 ml @ 50 mls/hr Q20H IV 06/06/20 08:00 07/06/20 07:59 06/13/20 00:16 Assessment/Plan Problem List: (1) Diabetes mellitus out of control ICD Codes: E11.65 - Type 2 diabetes mellitus with hyperglycemia SNOMED: 12691428, 617640368 (2) Pneumonia due to COVID-19 virus ICD Codes: U07.1 - COVID-19; J12.82 - Pneumonia due to coronavirus disease 2019 SNOMED: 244155386674066243 (3) Respiratory distress ICD Codes: R06.03 - Acute respiratory distress; J12.82 - Pneumonia due to coronavirus disease 2019 SNOMED: 198269062 Status: unchanged Assessment/Plan: increase Novolog 20 to 23 units every 6 hours continue Novolog sliding scale every 6 hours Huber Adame MD Jun 13, 2020 06:42
--- NOTE | 2020-06-13 07:15 | NUR ---
NURSE HAND-OFF REPORT: Latest Vital Signs: Temperature 102.4 , Pulse 123 , B/P 127 /81 , Respiratory Rate 25 , O2 SAT 95 , Mechanical Ventilator, O2 Flow Rate . Vital Sign Comment: stable EKG Rhythm: Sinus Tachycardia Rhythm change?: N MD Notified?: - MD Response: Latest Meyers Fall Score: 70 Fall Risk: High Risk Safety Measures: Call light Within Reach, Bed Alarm Zone 1, Side Rails Side Rails x2, Bed position Low and Locked. Fall Precautions: Yellow Socks Yellow Gown Door Sign Patient Fall Education Report given to RAKEL Mejía.
--- NOTE | 2020-06-13 08:45 | NUR ---
NURSE NOTES: Lennon cleared of clot which drained approximately 400mls of dark red urine, patient remains of versed drip at 5mg/hr and fentanyl at 90mcg/hr.
[2020-06-13] MEDS: Enoxaparin 40mg Inj SUBQ SCH (09:00)
[2020-06-13] MEDS: Docusate 100mg/10ml Liq GT SCH ×2 (09:29→20:07)
[2020-06-13] MEDS: Pantoprazole Inj IVP SCH ×2 (09:29→20:07)
[2020-06-13] MEDS: Solu-MEDROL 40mg Inj IVP SCH (09:30)
--- NOTE | 2020-06-13 09:30 | Infectious Diseases Prog Note ---
Assessment/Plan Assessment/Plan A 1. COVID19 pneumonia 2. Hypoxic respiratory failure 3. Morbid obesity 4. DM type with hyperglycemia 5. Thrombocytopenia 6. Fever & leukocytosis 7. Gram negative pneumonia P 1. Finished remdesivir course 2. continue Solumedrol tapering 3. Will f/u cultures Subjective ROS Limited/Unobtainable: Yes Constitutional: Reports: fever, other - T=103 Neurologic: Reports: other - sedated on restraint Allergies: Coded Allergies: No Known Allergies (Unverified , 05/28/20) Objective Last 24 Hour Vital Signs Date Time Temp Pulse Resp B/P (MAP) Pulse Ox O2 Delivery O2 Flow Rate FiO2 06/13/20 08:00 Mechanical Ventilator Mechanical Ventilator 06/13/20 08:00 103.0 125 20 112/76 (88) 98 06/13/20 08:00 70 06/13/20 08:00 127 06/13/20 07:00 25 127/81 Mechanical Ventilator 80 06/13/20 07:00 25 Mechanical Ventilator 80 06/13/20 07:00 123 23 127/81 (96) 95 06/13/20 06:30 119 24 06/13/20 06:00 119 24 130/79 (96) 95 06/13/20 06:00 24 130/79 Mechanical Ventilator 80 06/13/20 06:00 25 Mechanical Ventilator 80 06/13/20 05:00 118 24 130/79 (96) 95 06/13/20 05:00 25 130/79 Mechanical Ventilator 80 06/13/20 05:00 25 80 06/13/20 04:00 80 06/13/20 04:00 Mechanical Ventilator Mechanical Ventilator 06/13/20 04:00 25 130/79 Mechanical Ventilator 80 06/13/20 04:00 25 80 06/13/20 04:00 121 06/13/20 04:00 102.4 120 22 118/75 (89) 96 06/13/20 03:58 117 23 80 06/13/20 03:00 25 126/67 Mechanical Ventilator 80 06/13/20 03:00 25 Mechanical Ventilator 80 06/13/20 03:00 120 25 126/67 (86) 98 06/13/20 02:00 119 26 118/67 (84) 98 06/13/20 02:00 26 118/67 Mechanical Ventilator 80 06/13/20 02:00 26 Mechanical Ventilator 80 06/13/20 01:00 28 128/65 Mechanical Ventilator 80 06/13/20 01:00 28 Mechanical Ventilator 80 06/13/20 01:00 122 29 128/65 (86) 97 06/13/20 00:56 102.0 06/13/20 00:48 27 117/67 Mechanical Ventilator 80 06/13/20 00:00 80 06/13/20 00:00 120 06/13/20 00:00 27 117/67 Mechanical Ventilator 80 06/13/20 00:00 27 Mechanical Ventilator 80 06/13/20 00:00 27 117/67 Mechanical Ventilator 80 06/13/20 00:00 102.3 120 27 117/67 (84) 97 06/13/20 00:00 Mechanical Ventilator Mechanical Ventilator 06/12/20 23:29 120 24 80 06/12/20 23:00 119 26 123/68 (86) 97 06/12/20 23:00 26 Mechanical Ventilator 80 06/12/20 23:00 26 123/68 Mechanical Ventilator 80 06/12/20 22:00 26 Mechanical Ventilator 80 06/12/20 22:00 26 121/70 Mechanical Ventilator 80 06/12/20 22:00 121 26 121/70 (87) 97 06/12/20 21:00 25 Mechanical Ventilator 80 06/12/20 21:00 25 122/71 Mechanical Ventilator 80 06/12/20 21:00 120 25 122/71 (88) 97 06/12/20 20:00 80 06/12/20 20:00 102.0 116 24 118/66 (83) 97 06/12/20 20:00 111 06/12/20 20:00 24 Mechanical Ventilator 80 06/12/20 20:00 24 118/66 Mechanical Ventilator 80 06/12/20 20:00 Mechanical Ventilator Mechanical Ventilator 06/12/20 19:41 118 26 80 06/12/20 19:00 23 Mechanical Ventilator 80 06/12/20 19:00 23 114/55 Mechanical Ventilator 80 06/12/20 19:00 116 24 118/66 (83) 98 06/12/20 18:00 112 23 114/55 (74) 98 06/12/20 18:00 26 Mechanical Ventilator 80 06/12/20 18:00 26 115/68 Mechanical Ventilator 80 06/12/20 17:48 102.0 06/12/20 17:15 27 Mechanical Ventilator 80 06/12/20 17:15 26 125/71 Mechanical Ventilator 80 06/12/20 17:00 112 26 115/68 (84) 97 06/12/20 16:00 120 06/12/20 16:00 Mechanical Ventilator Mechanical Ventilator 06/12/20 16:00 102.0 112 26 125/71 (89) 97 06/12/20 16:00 80 06/12/20 15:10 116 25 80 06/12/20 15:00 117 27 116/72 (87) 97 06/12/20 15:00 26 Mechanical Ventilator 80 06/12/20 15:00 26 117/68 Mechanical Ventilator 80 06/12/20 14:09 124 26 119/70 (86) 98 06/12/20 14:00 26 Mechanical Ventilator 80 06/12/20 14:00 26 119/70 Mechanical Ventilator 80 06/12/20 13:00 128 26 118/66 (83) 98 06/12/20 13:00 27 Mechanical Ventilator 80 06/12/20 13:00 27 118/66 Mechanical Ventilator 80 06/12/20 12:39 101.7 06/12/20 12:00 80 06/12/20 12:00 134 06/12/20 12:00 Mechanical Ventilator Mechanical Ventilator 06/12/20 12:00 101.7 130 27 126/61 (82) 97 06/12/20 12:00 29 Mechanical Ventilator 80 06/12/20 12:00 29 126/61 Mechanical Ventilator 80 06/12/20 11:10 118 24 80 06/12/20 11:00 27 Mechanical Ventilator 80 06/12/20 11:00 27 115/63 Mechanical Ventilator 80 06/12/20 11:00 133 28 115/68 (84) 94 06/12/20 10:00 100.8 125 28 110/56 (74) 96 06/12/20 10:00 28 Mechanical Ventilator 80 06/12/20 10:00 24 110/56 Mechanical Ventilator 80 Height (Feet): 5 Height (Inches): 5.00 Weight (Pounds): 308 HEENT: other - orally intubated Respiratory/Chest: other - on ventilator, FIO2=70% Cardiovascular: tachycardia Abdomen: soft, non tender, other - NG tube Extremities: other - edema Neurologic/Psychiatric: other - sedated Microbiology Date/Time Source Procedure Growth Status 06/11/20 16:15 Sputum Gram Stain - Final Resulted 06/11/20 16:15 Sputum Culture - Preliminary Gram Negative Bacillus 1 Resulted 06/11/20 11:23 Blood Blood Culture - Preliminary NO GROWTH AFTER 24 HOURS Resulted 06/11/20 11:13 Blood Blood Culture - Preliminary NO GROWTH AFTER 24 HOURS Resulted Laboratory Tests Test 06/12/20 11:52 06/13/20 04:15 POC Whole Blood Glucose Pending White Blood Count 15.4 K/UL (4.8-10.8) H Red Blood Count 3.59 M/UL (4.20-5.40) L Hemoglobin 10.5 G/DL (12.0-16.0) L Hematocrit 32.4 % (37.0-47.0) L Mean Corpuscular Volume 90 FL (80-99) Mean Corpuscular Hemoglobin 29.3 PG (27.0-31.0) Mean Corpuscular Hemoglobin Concent 32.5 G/DL (32.0-36.0) Red Cell Distribution Width 15.5 % (11.6-14.8) H Platelet Count 247 K/UL (150-450) Mean Platelet Volume 8.1 FL (6.5-10.1) Neutrophils (%) (Auto) % (45.0-75.0) Lymphocytes (%) (Auto) % (20.0-45.0) Monocytes (%) (Auto) % (1.0-10.0) Eosinophils (%) (Auto) % (0.0-3.0) Basophils (%) (Auto) % (0.0-2.0) Differential Total Cells Counted 100 Neutrophils % (Manual) 88 % (45-75) H Lymphocytes % (Manual) 9 % (20-45) L Monocytes % (Manual) 2 % (1-10) Eosinophils % (Manual) 1 % (0-3) Basophils % (Manual) 0 % (0-2) Band Neutrophils 0 % (0-8) Platelet Estimate Adequate Platelet Morphology Normal Hypochromasia 1+ Sodium Level 140 MMOL/L (136-145) Potassium Level 3.8 MMOL/L (3.5-5.1) Chloride Level 96 MMOL/L (98-107) L Carbon Dioxide Level 36 MMOL/L (21-32) H Anion Gap 8 mmol/L (5-15) Blood Urea Nitrogen 55 mg/dL (7-18) H Creatinine 3.5 MG/DL (0.55-1.30) #H Estimat Glomerular Filtration Rate 13.9 mL/min (>60) Glucose Level 177 MG/DL (74-106) H Calcium Level 9.5 MG/DL (8.5-10.1) Current Medications Medications (Trade) Dose Ordered Sig/Zelda Route PRN Reason Start Time Stop Time Status Last Admin Dose Admin Acetaminophen (Tylenol) 650 mg Q4H PRN NG Temp >100.5 05/31/20 21:45 06/30/20 21:44 06/13/20 00:26 Acetaminophen (Tylenol) 650 mg Q6H PRN NG Mild Pain (Pain Scale 1-3) 06/06/20 18:00 07/06/20 17:59 06/11/20 18:14 Chlorhexidine Gluconate (Inna-Hex 2%) 1 applic DAILY@2000 TOPIC 05/30/20 20:00 08/28/20 19:59 06/12/20 20:28 Dextrose (Dextrose 50%) 25 ml Q30M PRN IV Hypoglycemia 06/05/20 10:45 09/03/20 10:44 Dextrose (Dextrose 50%) 50 ml Q30M PRN IV Hypoglycemia 06/05/20 10:45 09/03/20 10:44 Docusate Sodium (Colace) 100 mg Q12HR GT 06/07/20 21:00 07/07/20 20:59 06/12/20 20:28 Enoxaparin Sodium (Lovenox) 40 mg DAILY SUBQ 05/30/20 10:00 08/28/20 09:59 06/08/20 09:08 Fentanyl Citrate 250 ml @ 1 mls/hr Q24H IV 06/13/20 01:15 06/15/20 01:14 06/13/20 00:00 Furosemide 100 mg/ Dextrose 100 ml @ 7.5 mls/hr [id number] IV 06/11/20 11:00 07/11/20 10:59 06/12/20 18:18 Insulin Aspart (NovoLOG) EVERY 6 HOURS SUBQ 06/07/20 00:00 09/03/20 11:59 06/13/20 06:04 Insulin Aspart (NovoLOG) 23 units EVERY 6 HOURS SUBQ 06/13/20 12:00 09/04/20 08:59 Methylprednisolone Sodium Succinate (Solu-MEDROL) 30 mg DAILY IVP 06/11/20 09:00 09/09/20 08:59 06/12/20 09:43 Midazolam HCl 100 mg/Sodium Chloride 200 ml @ 0 mls/hr Q24H PRN IV sedation 06/12/20 16:30 06/14/20 16:29 06/12/20 17:15 Pantoprazole (Protonix) 40 mg DAILY IVP 06/03/20 09:00 07/03/20 08:59 06/12/20 09:42 Piperacillin Sod/ Tazobactam Sod 3.375 gm/Sodium Chloride 110 ml @ 27.5 mls/hr Q12HR IVPB 06/13/20 21:00 06/20/20 20:59 Polyethylene Glycol (Miralax) 17 gm BEDTIME GT 06/07/20 21:00 07/07/20 20:59 06/12/20 20:29 Sodium Chloride 1,000 ml @ 50 mls/hr Q20H IV 06/06/20 08:00 07/06/20 07:59 06/13/20 00:16 Colt Arana MD Jun 13, 2020 09:30
--- NOTE | 2020-06-13 10:45 | NUR ---
NURSE NOTES: Dr. Nava ordered to hold the lovenoz after informing the patient is having gross hematurina from the urine, the fo9ley has a dark red urine with clots noted. no further orders given at this time.
--- NOTE | 2020-06-13 10:58 | Hematology/Onc Progress Note ---
Assessment/Plan Assessment/Plan # Thrombocytopenia is due to infection/underlying covid19+++ --> ABX ceftriaxone -->zosyn --> on steriods likely cause of initial wbc --> per pulm --> plt 107->156-->192 --> smear reviewed # Anemia due to chronic disease --> hgb goal is >7 -> hgb trend 10-->9.8 --> transfuse prn --> ferritin is >1000 --> hold off on iron # Elevated ddimer due to covid19++ --> duplex legs is negative --> underlying covid rx # Hypoxia -> due to covid19 # Hypoxemia --> rx same as above # Respiratory failure --> on vent --> per pulm # Pneumonia due to COVID-19 virus --> per pulm rx -> sp remdesivir # Diabetes mellitus out of control --> hgb a1c goal <7 # Poor prognosis # Dvt ppx lovenox sq Appreciate consultation and bowen RN Subjective Allergies: Coded Allergies: No Known Allergies (Unverified , 05/28/20) All Systems: reviewed and negative except above Subjective 06/10 nv, on vent, with ogt, on fentanyl and versed, plt stable 06/11 nv, vent adjusted is on ogt, meds reviewed 06/12 nv, vent, meds noted, labs noted, no bleeding, hgb 10.4 06/13 nv, is on vent, meds reviewed, no bleeding, cbc reviewed Objective Objective Current Medications Medications (Trade) Dose Ordered Sig/Zelda Route PRN Reason Start Time Stop Time Status Last Admin Dose Admin Acetaminophen (Tylenol) 650 mg Q4H PRN NG Temp >100.5 05/31/20 21:45 06/30/20 21:44 06/13/20 00:26 Acetaminophen (Tylenol) 650 mg Q6H PRN NG Mild Pain (Pain Scale 1-3) 06/06/20 18:00 07/06/20 17:59 06/11/20 18:14 Chlorhexidine Gluconate (Inna-Hex 2%) 1 applic DAILY@1999 TOPIC 05/30/20 20:00 08/28/20 19:59 06/12/20 20:28 Dextrose (Dextrose 50%) 25 ml Q30M PRN IV Hypoglycemia 06/05/20 10:45 09/03/20 10:44 Dextrose (Dextrose 50%) 50 ml Q30M PRN IV Hypoglycemia 06/05/20 10:45 09/03/20 10:44 Docusate Sodium (Colace) 100 mg Q12HR GT 06/07/20 21:00 07/07/20 20:59 06/13/20 09:29 Enoxaparin Sodium (Lovenox) 40 mg DAILY SUBQ 05/30/20 10:00 08/28/20 09:59 06/08/20 09:08 Fentanyl Citrate 250 ml @ 1 mls/hr Q24H IV 06/13/20 01:15 06/15/20 01:14 06/13/20 00:00 Furosemide 100 mg/ Dextrose 100 ml @ 7.5 mls/hr [id number] IV 06/11/20 11:00 07/11/20 10:59 06/12/20 18:18 Insulin Aspart (NovoLOG) EVERY 6 HOURS SUBQ 06/07/20 00:00 09/03/20 11:59 06/13/20 06:04 Insulin Aspart (NovoLOG) 23 units EVERY 6 HOURS SUBQ 06/13/20 12:00 09/04/20 08:59 Methylprednisolone Sodium Succinate (Solu-MEDROL) 30 mg DAILY IVP 06/11/20 09:00 09/09/20 08:59 06/13/20 09:30 Midazolam HCl 100 mg/Sodium Chloride 200 ml @ 0 mls/hr Q24H PRN IV sedation 06/12/20 16:30 06/14/20 16:29 06/12/20 17:15 Pantoprazole (Protonix) 40 mg DAILY IVP 06/03/20 09:00 07/03/20 08:59 06/13/20 09:29 Piperacillin Sod/ Tazobactam Sod 3.375 gm/Sodium Chloride 110 ml @ 27.5 mls/hr Q12HR IVPB 06/13/20 21:00 06/20/20 20:59 Polyethylene Glycol (Miralax) 17 gm BEDTIME GT 06/07/20 21:00 07/07/20 20:59 06/12/20 20:29 Sodium Chloride 1,000 ml @ 50 mls/hr Q20H IV 06/06/20 08:00 07/06/20 07:59 06/13/20 00:16 Last 24 Hour Vital Signs Date Time Temp Pulse Resp B/P (MAP) Pulse Ox O2 Delivery O2 Flow Rate FiO2 06/13/20 08:00 Mechanical Ventilator Mechanical Ventilator 06/13/20 08:00 103.0 125 20 112/76 (88) 98 06/13/20 08:00 70 06/13/20 08:00 127 06/13/20 07:38 126 22 80 06/13/20 07:00 25 127/81 Mechanical Ventilator 80 06/13/20 07:00 25 Mechanical Ventilator 80 06/13/20 07:00 123 23 127/81 (96) 95 06/13/20 06:30 119 24 06/13/20 06:00 119 24 130/79 (96) 95 06/13/20 06:00 24 130/79 Mechanical Ventilator 80 06/13/20 06:00 25 Mechanical Ventilator 80 06/13/20 05:00 118 24 130/79 (96) 95 06/13/20 05:00 25 130/79 Mechanical Ventilator 80 06/13/20 05:00 25 80 06/13/20 04:00 80 06/13/20 04:00 Mechanical Ventilator Mechanical Ventilator 06/13/20 04:00 25 130/79 Mechanical Ventilator 80 06/13/20 04:00 25 80 06/13/20 04:00 121 06/13/20 04:00 102.4 120 22 118/75 (89) 96 06/13/20 03:58 117 23 80 06/13/20 03:00 25 126/67 Mechanical Ventilator 80 06/13/20 03:00 25 Mechanical Ventilator 80 06/13/20 03:00 120 25 126/67 (86) 98 06/13/20 02:00 119 26 118/67 (84) 98 06/13/20 02:00 26 118/67 Mechanical Ventilator 80 06/13/20 02:00 26 Mechanical Ventilator 80 06/13/20 01:00 28 128/65 Mechanical Ventilator 80 06/13/20 01:00 28 Mechanical Ventilator 80 06/13/20 01:00 122 29 128/65 (86) 97 06/13/20 00:56 102.0 06/13/20 00:48 27 117/67 Mechanical Ventilator 80 06/13/20 00:00 80 06/13/20 00:00 120 06/13/20 00:00 27 117/67 Mechanical Ventilator 80 06/13/20 00:00 27 Mechanical Ventilator 80 06/13/20 00:00 27 117/67 Mechanical Ventilator 80 06/13/20 00:00 102.3 120 27 117/67 (84) 97 06/13/20 00:00 Mechanical Ventilator Mechanical Ventilator 06/12/20 23:29 120 24 80 06/12/20 23:00 119 26 123/68 (86) 97 06/12/20 23:00 26 Mechanical Ventilator 80 06/12/20 23:00 26 123/68 Mechanical Ventilator 80 06/12/20 22:00 26 Mechanical Ventilator 80 06/12/20 22:00 26 121/70 Mechanical Ventilator 80 06/12/20 22:00 121 26 121/70 (87) 97 06/12/20 21:00 25 Mechanical Ventilator 80 06/12/20 21:00 25 122/71 Mechanical Ventilator 80 06/12/20 21:00 120 25 122/71 (88) 97 06/12/20 20:00 80 06/12/20 20:00 102.0 116 24 118/66 (83) 97 06/12/20 20:00 111 06/12/20 20:00 24 Mechanical Ventilator 80 06/12/20 20:00 24 118/66 Mechanical Ventilator 80 06/12/20 20:00 Mechanical Ventilator Mechanical Ventilator 06/12/20 19:41 118 26 80 06/12/20 19:00 23 Mechanical Ventilator 80 06/12/20 19:00 23 114/55 Mechanical Ventilator 80 06/12/20 19:00 116 24 118/66 (83) 98 06/12/20 18:00 112 23 114/55 (74) 98 06/12/20 18:00 26 Mechanical Ventilator 80 06/12/20 18:00 26 115/68 Mechanical Ventilator 80 06/12/20 17:48 102.0 06/12/20 17:15 27 Mechanical Ventilator 80 06/12/20 17:15 26 125/71 Mechanical Ventilator 80 06/12/20 17:00 112 26 115/68 (84) 97 06/12/20 16:00 120 06/12/20 16:00 Mechanical Ventilator Mechanical Ventilator 06/12/20 16:00 102.0 112 26 125/71 (89) 97 06/12/20 16:00 80 06/12/20 15:10 116 25 80 06/12/20 15:00 117 27 116/72 (87) 97 06/12/20 15:00 26 Mechanical Ventilator 80 06/12/20 15:00 26 117/68 Mechanical Ventilator 80 06/12/20 14:09 124 26 119/70 (86) 98 06/12/20 14:00 26 Mechanical Ventilator 80 06/12/20 14:00 26 119/70 Mechanical Ventilator 80 06/12/20 13:00 128 26 118/66 (83) 98 06/12/20 13:00 27 Mechanical Ventilator 80 06/12/20 13:00 27 118/66 Mechanical Ventilator 80 06/12/20 12:39 101.7 06/12/20 12:00 80 06/12/20 12:00 134 06/12/20 12:00 Mechanical Ventilator Mechanical Ventilator 06/12/20 12:00 101.7 130 27 126/61 (82) 97 06/12/20 12:00 29 Mechanical Ventilator 80 06/12/20 12:00 29 126/61 Mechanical Ventilator 80 06/12/20 11:10 118 24 80 06/12/20 11:00 27 Mechanical Ventilator 80 06/12/20 11:00 27 115/63 Mechanical Ventilator 80 06/12/20 11:00 133 28 115/68 (84) 94 06/12/20 10:00 100.8 125 28 110/56 (74) 96 06/12/20 10:00 28 Mechanical Ventilator 80 06/12/20 10:00 24 110/56 Mechanical Ventilator 80 06/12/20 09:00 100.3 122 22 108/62 (77) 95 06/12/20 09:00 24 Mechanical Ventilator 80 06/12/20 09:00 24 108/68 Mechanical Ventilator 80 06/12/20 08:00 Mechanical Ventilator Mechanical Ventilator 06/12/20 08:00 124 06/12/20 08:00 21 Mechanical Ventilator 80 06/12/20 08:00 21 115/61 Mechanical Ventilator 80 06/12/20 08:00 80 06/12/20 08:00 100.8 119 21 115/61 (79) 96 06/12/20 07:15 120 22 80 06/12/20 07:00 25 Mechanical Ventilator 80 06/12/20 07:00 30 101/54 Mechanical Ventilator 80 06/12/20 07:00 115 22 101/54 (70) 96 06/12/20 06:30 88 22 06/12/20 06:00 111 22 91/49 (63) 96 06/12/20 06:00 28 Mechanical Ventilator 80 06/12/20 06:00 25 91/49 Mechanical Ventilator 80 06/12/20 05:00 30 Mechanical Ventilator 30 06/12/20 05:00 20 91/49 Mechanical Ventilator 80 06/12/20 05:00 111 18 93/56 (68) 96 06/12/20 04:00 105 06/12/20 04:00 Mechanical Ventilator Mechanical Ventilator 06/12/20 04:00 28 Mechanical Ventilator 80 06/12/20 04:00 26 93/56 Mechanical Ventilator 80 06/12/20 04:00 70 06/12/20 04:00 98.0 107 19 96/49 (65) 97 06/12/20 03:27 107 19 80 06/12/20 03:07 111 19 95/58 (70) 95 06/12/20 03:00 25 Mechanical Ventilator 90 06/12/20 03:00 20 93/60 Mechanical Ventilator 80 06/12/20 03:00 111 18 116/66 (83) 94 06/12/20 02:00 104 22 116/66 (83) 94 06/12/20 02:00 25 Mechanical Ventilator 80 06/12/20 02:00 25 95/65 Mechanical Ventilator 80 06/12/20 01:00 105 06/12/20 01:00 96 21 126/63 (84) 92 06/12/20 01:00 23 Mechanical Ventilator 70 06/12/20 01:00 23 126/63 Mechanical Ventilator 70 06/12/20 00:00 70 06/12/20 00:00 23 Mechanical Ventilator 70 06/12/20 00:00 24 126/63 Mechanical Ventilator 70 06/12/20 00:00 98.0 110 27 114/77 (89) 94 06/12/20 00:00 Mechanical Ventilator Mechanical Ventilator 06/11/20 23:00 118 27 130/65 (86) 93 06/11/20 23:00 23 70 06/11/20 23:00 20 130/65 Mechanical Ventilator 70 06/11/20 22:55 118 25 80 06/11/20 22:00 108 22 116/67 (83) 94 06/11/20 22:00 25 Mechanical Ventilator 70 06/11/20 22:00 21 116/119 Mechanical Ventilator 70 06/11/20 21:00 115 22 121/73 (89) 94 06/11/20 21:00 25 Mechanical Ventilator 70 06/11/20 21:00 28 121/76 Mechanical Ventilator 70 06/11/20 20:07 25 120/70 Mechanical Ventilator 70 06/11/20 20:00 Mechanical Ventilator Mechanical Ventilator 06/11/20 20:00 22 70 06/11/20 20:00 28 120/70 Mechanical Ventilator 70 06/11/20 20:00 109 06/11/20 20:00 70 06/11/20 20:00 100.0 129 27 120/70 (87) 93 06/11/20 19:30 111 23 80 06/11/20 19:19 20 Mechanical Ventilator 70 06/11/20 19:00 20 Mechanical Ventilator 70 06/11/20 19:00 22 124/81 Mechanical Ventilator 70 06/11/20 19:00 104 22 124/81 (95) 91 06/11/20 18:00 96 20 115/61 (79) 93 06/11/20 18:00 20 Mechanical Ventilator 70 06/11/20 18:00 20 115/61 Mechanical Ventilator 70 06/11/20 17:00 103 22 125/68 (87) 92 06/11/20 17:00 22 Mechanical Ventilator 70 06/11/20 17:00 22 125/68 Mechanical Ventilator 70 06/11/20 16:00 100.4 100 20 112/53 (72) 97 06/11/20 16:00 70 06/11/20 16:00 20 Mechanical Ventilator 70 06/11/20 16:00 20 112/53 Mechanical Ventilator 70 06/11/20 16:00 Mechanical Ventilator Mechanical Ventilator 06/11/20 15:26 103 06/11/20 15:24 100.4 06/11/20 15:20 99 20 70 06/11/20 15:00 114 23 142/66 (91) 95 06/11/20 15:00 23 Mechanical Ventilator 70 06/11/20 15:00 23 142/66 Mechanical Ventilator 70 06/11/20 14:00 98 19 98/57 (71) 98 06/11/20 14:00 20 Mechanical Ventilator 70 06/11/20 14:00 20 98/57 Mechanical Ventilator 70 06/11/20 13:30 98 19 115/53 (73) 98 06/11/20 13:15 119 24 136/70 (92) 98 06/11/20 13:00 20 Mechanical Ventilator 70 06/11/20 13:00 20 107/57 Mechanical Ventilator 70 06/11/20 13:00 98 20 107/57 (74) 99 06/11/20 12:45 103 20 110/59 (76) 99 06/11/20 12:30 100.2 101 19 109/60 (76) 98 06/11/20 12:15 104 19 122/79 (93) 99 06/11/20 12:00 106 19 118/62 (80) 98 06/11/20 12:00 Mechanical Ventilator Mechanical Ventilator 06/11/20 12:00 19 Mechanical Ventilator 70 06/11/20 12:00 19 118/62 Mechanical Ventilator 70 06/11/20 12:00 70 06/11/20 11:58 106 19 119/61 (80) 98 06/11/20 11:56 106 06/11/20 11:45 19 Mechanical Ventilator 70 06/11/20 11:45 106 19 119/61 (80) 98 06/11/20 11:15 109 22 70 06/11/20 11:00 19 Mechanical Ventilator 70 06/11/20 11:00 19 129/71 Mechanical Ventilator 70 06/11/20 11:00 115 19 129/71 (90) 97 Intake and Output 06/12/20 06/13/20 19:00 07:00 Intake Total 1139.0 ml 1758.0 ml Output Total 360 ml 1020 ml Balance 779.0 ml 738.0 ml Free Water 100 ml 120 ml IV Total 259.0 ml 918.0 ml Tube Feeding 720 ml 720 ml Other 60 ml Output Urine Total 360 ml 1020 ml # Voids 30 # Bowel Movements 1 Labs Test 06/11/20 00:05 06/11/20 03:59 06/11/20 05:55 06/11/20 07:48 White Blood Count 8.5 K/UL (4.8-10.8) Red Blood Count 3.39 M/UL (4.20-5.40) Hemoglobin 9.8 G/DL (12.0-16.0) Hematocrit 31.7 % (37.0-47.0) Mean Corpuscular Volume 94 FL (80-99) Mean Corpuscular Hemoglobin 28.9 PG (27.0-31.0) Mean Corpuscular Hemoglobin Concent 30.9 G/DL (32.0-36.0) Red Cell Distribution Width 15.4 % (11.6-14.8) Platelet Count 156 K/UL (150-450) Mean Platelet Volume 8.6 FL (6.5-10.1) Neutrophils (%) (Auto) 74.6 % (45.0-75.0) Lymphocytes (%) (Auto) 19.3 % (20.0-45.0) Monocytes (%) (Auto) 2.4 % (1.0-10.0) Eosinophils (%) (Auto) 2.9 % (0.0-3.0) Basophils (%) (Auto) 0.9 % (0.0-2.0) D-Dimer 29.59 mg/L FEU (0.00-0.49) Sodium Level 143 MMOL/L (136-145) Potassium Level 4.5 MMOL/L (3.5-5.1) Chloride Level 103 MMOL/L (98-107) Carbon Dioxide Level 39 MMOL/L (21-32) Anion Gap 1 mmol/L (5-15) Blood Urea Nitrogen 25 mg/dL (7-18) Creatinine 0.7 MG/DL (0.55-1.30) Estimat Glomerular Filtration Rate > 60 mL/min (>60) Glucose Level 117 MG/DL (74-106) Calcium Level 8.9 MG/DL (8.5-10.1) Arterial Blood pH 7.401 (7.350-7.450) Arterial Blood Partial Pressure CO2 71.4 mmHg (35.0-45.0) Arterial Blood Partial Pressure O2 83.4 mmHg (75.0-100.0) Arterial Blood HCO3 43.3 mmol/L (22.0-26.0) Arterial Blood Oxygen Saturation 95.3 % (95-100) Arterial Blood Base Excess 15.7 (-2-2) Jeremiah Test Positive Test 06/12/20 04:25 06/12/20 08:17 06/12/20 11:52 06/13/20 04:15 White Blood Count 11.9 K/UL (4.8-10.8) 15.4 K/UL (4.8-10.8) Red Blood Count 3.60 M/UL (4.20-5.40) 3.59 M/UL (4.20-5.40) Hemoglobin 10.4 G/DL (12.0-16.0) 10.5 G/DL (12.0-16.0) Hematocrit 33.0 % (37.0-47.0) 32.4 % (37.0-47.0) Mean Corpuscular Volume 92 FL (80-99) 90 FL (80-99) Mean Corpuscular Hemoglobin 28.9 PG (27.0-31.0) 29.3 PG (27.0-31.0) Mean Corpuscular Hemoglobin Concent 31.6 G/DL (32.0-36.0) 32.5 G/DL (32.0-36.0) Red Cell Distribution Width 14.9 % (11.6-14.8) 15.5 % (11.6-14.8) Platelet Count 192 K/UL (150-450) 247 K/UL (150-450) Mean Platelet Volume 8.0 FL (6.5-10.1) 8.1 FL (6.5-10.1) Neutrophils (%) (Auto) % (45.0-75.0) % (45.0-75.0) Lymphocytes (%) (Auto) % (20.0-45.0) % (20.0-45.0) Monocytes (%) (Auto) % (1.0-10.0) % (1.0-10.0) Eosinophils (%) (Auto) % (0.0-3.0) % (0.0-3.0) Basophils (%) (Auto) % (0.0-2.0) % (0.0-2.0) Sodium Level 138 MMOL/L (136-145) 140 MMOL/L (136-145) Potassium Level 3.5 MMOL/L (3.5-5.1) 3.8 MMOL/L (3.5-5.1) Chloride Level 95 MMOL/L (98-107) 96 MMOL/L (98-107) Carbon Dioxide Level 40 MMOL/L (21-32) 36 MMOL/L (21-32) Anion Gap 2 mmol/L (5-15) 8 mmol/L (5-15) Blood Urea Nitrogen 23 mg/dL (7-18) 55 mg/dL (7-18) Creatinine 0.9 MG/DL (0.55-1.30) 3.5 MG/DL (0.55-1.30) Estimat Glomerular Filtration Rate > 60 mL/min (>60) 13.9 mL/min (>60) Glucose Level 112 MG/DL (74-106) 177 MG/DL (74-106) Calcium Level 8.8 MG/DL (8.5-10.1) 9.5 MG/DL (8.5-10.1) Arterial Blood pH 7.500 (7.350-7.450) Arterial Blood Partial Pressure CO2 49.1 mmHg (35.0-45.0) Arterial Blood Partial Pressure O2 60.1 mmHg (75.0-100.0) Arterial Blood HCO3 37.4 mmol/L (22.0-26.0) Arterial Blood Oxygen Saturation 90.4 % (95-100) Arterial Blood Base Excess 12.6 (-2-2) Jeremiah Test Positive Differential Total Cells Counted 100 Neutrophils % (Manual) 88 % (45-75) Lymphocytes % (Manual) 9 % (20-45) Monocytes % (Manual) 2 % (1-10) Eosinophils % (Manual) 1 % (0-3) Basophils % (Manual) 0 % (0-2) Band Neutrophils 0 % (0-8) Platelet Estimate Adequate Platelet Morphology Normal Hypochromasia 1+ Height (Feet): 5 Height (Inches): 5.00 Weight (Pounds): 308 Objective GeNL: nv Pulm: vent++ CV: rrr Abd: soft, nt, nd Ext: no cce Myron Condon MD Jun 13, 2020 10:58
--- NOTE | 2020-06-13 11:25 | NUR ---
NURSE NOTES: Dr. Del Cid updated ont he patient status, advised if he would lilke to have a renal consult o placed ont he case, Dr. Rivers will be on the case for nephrology.
--- NOTE | 2020-06-13 11:38 | Pulmonology Progress Note ---
Subjective ROS Limited/Unobtainable: Yes Interval Events: Remains intubated Constitutional: Reports: fever, other - T=103 HEENT: Repors: no symptoms Respiratory: Reports: no symptoms Cardiovascular: Reports: no symptoms Gastrointestinal/Abdominal: Reports: no symptoms Genitourinary: Reports: no symptoms Allergies: Coded Allergies: No Known Allergies (Unverified , 05/28/20) All Systems: reviewed and negative except above Objective Last 24 Hour Vital Signs Date Time Temp Pulse Resp B/P (MAP) Pulse Ox O2 Delivery O2 Flow Rate FiO2 06/13/20 11:00 114 20 103/60 (74) 95 06/13/20 10:00 121 25 109/61 (77) 95 06/13/20 09:00 117 21 103/56 (72) 95 06/13/20 08:00 Mechanical Ventilator Mechanical Ventilator 06/13/20 08:00 103.0 125 20 112/76 (88) 98 06/13/20 08:00 70 06/13/20 08:00 127 06/13/20 07:38 126 22 80 06/13/20 07:00 25 127/81 Mechanical Ventilator 80 06/13/20 07:00 25 Mechanical Ventilator 80 06/13/20 07:00 123 23 127/81 (96) 95 06/13/20 06:30 119 24 06/13/20 06:00 119 24 130/79 (96) 95 06/13/20 06:00 24 130/79 Mechanical Ventilator 80 06/13/20 06:00 25 Mechanical Ventilator 80 06/13/20 05:00 118 24 130/79 (96) 95 06/13/20 05:00 25 130/79 Mechanical Ventilator 80 06/13/20 05:00 25 80 06/13/20 04:00 80 06/13/20 04:00 Mechanical Ventilator Mechanical Ventilator 06/13/20 04:00 25 130/79 Mechanical Ventilator 80 06/13/20 04:00 25 80 06/13/20 04:00 121 06/13/20 04:00 102.4 120 22 118/75 (89) 96 06/13/20 03:58 117 23 80 06/13/20 03:00 25 126/67 Mechanical Ventilator 80 06/13/20 03:00 25 Mechanical Ventilator 80 06/13/20 03:00 120 25 126/67 (86) 98 06/13/20 02:00 119 26 118/67 (84) 98 06/13/20 02:00 26 118/67 Mechanical Ventilator 80 06/13/20 02:00 26 Mechanical Ventilator 80 06/13/20 01:00 28 128/65 Mechanical Ventilator 80 06/13/20 01:00 28 Mechanical Ventilator 80 06/13/20 01:00 122 29 128/65 (86) 97 06/13/20 00:56 102.0 06/13/20 00:48 27 117/67 Mechanical Ventilator 80 06/13/20 00:00 80 06/13/20 00:00 120 06/13/20 00:00 27 117/67 Mechanical Ventilator 80 06/13/20 00:00 27 Mechanical Ventilator 80 06/13/20 00:00 27 117/67 Mechanical Ventilator 80 06/13/20 00:00 102.3 120 27 117/67 (84) 97 06/13/20 00:00 Mechanical Ventilator Mechanical Ventilator 06/12/20 23:29 120 24 80 06/12/20 23:00 119 26 123/68 (86) 97 06/12/20 23:00 26 Mechanical Ventilator 80 06/12/20 23:00 26 123/68 Mechanical Ventilator 80 06/12/20 22:00 26 Mechanical Ventilator 80 06/12/20 22:00 26 121/70 Mechanical Ventilator 80 06/12/20 22:00 121 26 121/70 (87) 97 06/12/20 21:00 25 Mechanical Ventilator 80 06/12/20 21:00 25 122/71 Mechanical Ventilator 80 06/12/20 21:00 120 25 122/71 (88) 97 06/12/20 20:00 80 06/12/20 20:00 102.0 116 24 118/66 (83) 97 06/12/20 20:00 111 06/12/20 20:00 24 Mechanical Ventilator 80 06/12/20 20:00 24 118/66 Mechanical Ventilator 80 06/12/20 20:00 Mechanical Ventilator Mechanical Ventilator 06/12/20 19:41 118 26 80 06/12/20 19:00 23 Mechanical Ventilator 80 06/12/20 19:00 23 114/55 Mechanical Ventilator 80 06/12/20 19:00 116 24 118/66 (83) 98 06/12/20 18:00 112 23 114/55 (74) 98 06/12/20 18:00 26 Mechanical Ventilator 80 06/12/20 18:00 26 115/68 Mechanical Ventilator 80 06/12/20 17:48 102.0 06/12/20 17:15 27 Mechanical Ventilator 80 06/12/20 17:15 26 125/71 Mechanical Ventilator 80 06/12/20 17:00 112 26 115/68 (84) 97 06/12/20 16:00 120 06/12/20 16:00 Mechanical Ventilator Mechanical Ventilator 06/12/20 16:00 102.0 112 26 125/71 (89) 97 06/12/20 16:00 80 06/12/20 15:10 116 25 80 06/12/20 15:00 117 27 116/72 (87) 97 06/12/20 15:00 26 Mechanical Ventilator 80 06/12/20 15:00 26 117/68 Mechanical Ventilator 80 06/12/20 14:09 124 26 119/70 (86) 98 06/12/20 14:00 26 Mechanical Ventilator 80 06/12/20 14:00 26 119/70 Mechanical Ventilator 80 06/12/20 13:00 128 26 118/66 (83) 98 06/12/20 13:00 27 Mechanical Ventilator 80 06/12/20 13:00 27 118/66 Mechanical Ventilator 80 06/12/20 12:39 101.7 06/12/20 12:00 80 06/12/20 12:00 134 06/12/20 12:00 Mechanical Ventilator Mechanical Ventilator 06/12/20 12:00 101.7 130 27 126/61 (82) 97 06/12/20 12:00 29 Mechanical Ventilator 80 06/12/20 12:00 29 126/61 Mechanical Ventilator 80 Intake and Output 06/12/20 06/13/20 19:00 07:00 Intake Total 1139.0 ml 1758.0 ml Output Total 360 ml 1020 ml Balance 779.0 ml 738.0 ml Free Water 100 ml 120 ml IV Total 259.0 ml 918.0 ml Tube Feeding 720 ml 720 ml Other 60 ml Output Urine Total 360 ml 1020 ml # Voids 30 # Bowel Movements 1 General Appearance: no acute distress HEENT: normocephalic Respiratory: chest wall non-tender Cardiovascular: normal peripheral pulses Abdomen: normal bowel sounds Microbiology Date/Time Source Procedure Growth Status 06/11/20 16:15 Sputum Gram Stain - Final Resulted 06/11/20 16:15 Sputum Culture - Preliminary Gram Negative Bacillus 1 Resulted 06/11/20 11:23 Blood Blood Culture - Preliminary NO GROWTH AFTER 24 HOURS Resulted 06/11/20 11:13 Blood Blood Culture - Preliminary NO GROWTH AFTER 24 HOURS Resulted Laboratory Tests 06/12/20 11:52: POC Whole Blood Glucose [Pending] 06/13/20 04:15: White Blood Count 15.4H, Red Blood Count 3.59L, Hemoglobin 10.5L, Hematocrit 32.4L, Mean Corpuscular Volume 90, Mean Corpuscular Hemoglobin 29.3, Mean Corpuscular Hemoglobin Concent 32.5, Red Cell Distribution Width 15.5H, Platelet Count 247, Mean Platelet Volume 8.1, Neutrophils (%) (Auto) , Lymphocytes (%) (Auto) , Monocytes (%) (Auto) , Eosinophils (%) (Auto) , Basophils (%) (Auto) , Differential Total Cells Counted 100, Neutrophils % (Manual) 88H, Lymphocytes % (Manual) 9L, Monocytes % (Manual) 2, Eosinophils % (Manual) 1, Basophils % (Manual) 0, Band Neutrophils 0, Platelet Estimate Adequate, Platelet Morphology Normal, Hypochromasia 1+, Sodium Level 140, Potassium Level 3.8, Chloride Level 96L, Carbon Dioxide Level 36H, Anion Gap 8, Blood Urea Nitrogen 55H, Creatinine 3.5#H, Estimat Glomerular Filtration Rate 13.9, Glucose Level 177H, Calcium Level 9.5 Current Medications Medications (Trade) Dose Ordered Sig/Zelda Route PRN Reason Start Time Stop Time Status Last Admin Dose Admin Acetaminophen (Tylenol) 650 mg Q4H PRN NG Temp >100.5 05/31/20 21:45 06/30/20 21:44 06/13/20 00:26 Acetaminophen (Tylenol) 650 mg Q6H PRN NG Mild Pain (Pain Scale 1-3) 06/06/20 18:00 07/06/20 17:59 06/11/20 18:14 Chlorhexidine Gluconate (Inna-Hex 2%) 1 applic DAILY@1999 TOPIC 05/30/20 20:00 08/28/20 19:59 06/12/20 20:28 Dextrose (Dextrose 50%) 25 ml Q30M PRN IV Hypoglycemia 06/05/20 10:45 09/03/20 10:44 Dextrose (Dextrose 50%) 50 ml Q30M PRN IV Hypoglycemia 06/05/20 10:45 09/03/20 10:44 Docusate Sodium (Colace) 100 mg Q12HR GT 06/07/20 21:00 07/07/20 20:59 06/13/20 09:29 Enoxaparin Sodium (Lovenox) 40 mg DAILY SUBQ 05/30/20 10:00 08/28/20 09:59 06/08/20 09:08 Fentanyl Citrate 250 ml @ 1 mls/hr Q24H IV 06/13/20 01:15 06/15/20 01:14 06/13/20 00:00 Furosemide 100 mg/ Dextrose 100 ml @ 7.5 mls/hr [id number] IV 06/11/20 11:00 07/11/20 10:59 06/12/20 18:18 Insulin Aspart (NovoLOG) EVERY 6 HOURS SUBQ 06/07/20 00:00 09/03/20 11:59 06/13/20 06:04 Insulin Aspart (NovoLOG) 23 units EVERY 6 HOURS SUBQ 06/13/20 12:00 09/04/20 08:59 Methylprednisolone Sodium Succinate (Solu-MEDROL) 30 mg DAILY IVP 06/11/20 09:00 09/09/20 08:59 06/13/20 09:30 Midazolam HCl 100 mg/Sodium Chloride 200 ml @ 0 mls/hr Q24H PRN IV sedation 06/12/20 16:30 06/14/20 16:29 06/12/20 17:15 Pantoprazole (Protonix) 40 mg DAILY IVP 06/03/20 09:00 07/03/20 08:59 06/13/20 09:29 Piperacillin Sod/ Tazobactam Sod 3.375 gm/Sodium Chloride 110 ml @ 27.5 mls/hr Q12HR IVPB 06/13/20 21:00 06/20/20 20:59 Polyethylene Glycol (Miralax) 17 gm BEDTIME GT 06/07/20 21:00 07/07/20 20:59 06/12/20 20:29 Sodium Chloride 1,000 ml @ 50 mls/hr Q20H IV 06/06/20 08:00 07/06/20 07:59 06/13/20 00:16 Assessment/Plan Assessment/Plan 1. COVID-19 pneumonia -Intubated 05/28/20 - We will continue broad-spectrum antibiotics. - On solumedrol -On Rocephin -Continue monitoring SaO2 and keep it >92% -Continue PEEP 10; - Peak airway pressures high; approx 73 - FiO2 100% -> 90 ->80%; will attempt to decrease to 70% -will continue OGT feeding -Continue sedation -Need to keep patient completely sedated. 2. Hyponatremia -Per primary MD 3. Elevated inflammatory markers - has high D dimer; Lovenox on hold due to hematuria Javier Nava MD Jun 13, 2020 11:38
--- NOTE | 2020-06-13 11:45 | NUR ---
NURSE NOTES: Dr. Arana updated at the bedside of the patient, informed of the WBC count increased to 15.4. patient is having a continue to have temperature and ice packs placed throughout the patient body. no verbal orders given at this time.
--- NOTE | 2020-06-13 11:57 | Consultation ---
Consult Note Consult Note I am asked to evaluate the patient at the request of Dr. Del Cid for rising serum creatinine Patient seen in ICU Day 16 of hospitalization here at [facility] Her serum creatinine cristine to 3.5 today Discussed with RN RN informed me that the patient had a clogged Lennon catheter this morning due to hematuria and clots which was irrigated and ever since urine is flowing Conditions of the patient is being treated for are: 1. COVID19 pneumonia 2. Hypoxic respiratory failure 3. Morbid obesity 4. DM type with hyperglycemia 5. Thrombocytopenia 6. Fever & leukocytosis 7. Gram negative pneumonia Medication list reviewed Patient is intubated on ventilator Tachycardic Morbidly obese Decreased breath sound over the bases The rest of examination deferred due to COVID-19. . Assessment/Plan Impression: Acute renal failure Obstructive uropathy, clogged Lennon Respiratory failure COVID-19 pneumonia Morbid obesity Suggestions DC Lasix drip Increase Protonix dose Monitor renal parameters, electrolytes Per orders Rigo Tyler MD Jun 13, 2020 11:57
--- NOTE | 2020-06-13 12:15 | NUR ---
NURSE NOTES: Dr. Tyler updated on the patient urine status and increase in Creatinine to 3.5. updated the urine is dark red and continuous to flow are rate of greater than 50ml/hr. Lasix drip discontinues per dr. bobby orders.
[2020-06-13] MEDS: Midazolam HCl 50mg/10ml vial 100 MG in NS 180 ML IV PRN (12:18)
--- NOTE | 2020-06-13 14:08 | General Progress Note ---
Subjective Constitutional: Reports: weakness Allergies: Coded Allergies: No Known Allergies (Unverified , 05/28/20) All Systems: reviewed and negative except above Subjective intubated sedatde in icu Objective Last 24 Hour Vital Signs Date Time Temp Pulse Resp B/P (MAP) Pulse Ox O2 Delivery O2 Flow Rate FiO2 06/13/20 12:18 22 Mechanical Ventilator 70 06/13/20 12:00 70 06/13/20 12:00 118 14 136/71 (92) 94 06/13/20 12:00 127 06/13/20 11:25 117 20 80 06/13/20 11:00 114 20 103/60 (74) 95 06/13/20 10:00 121 25 109/61 (77) 95 06/13/20 09:00 117 21 103/56 (72) 95 06/13/20 08:00 Mechanical Ventilator Mechanical Ventilator 06/13/20 08:00 103.0 125 20 112/76 (88) 98 06/13/20 08:00 70 06/13/20 08:00 127 06/13/20 07:38 126 22 80 06/13/20 07:00 25 127/81 Mechanical Ventilator 80 06/13/20 07:00 25 Mechanical Ventilator 80 06/13/20 07:00 123 23 127/81 (96) 95 06/13/20 06:30 119 24 06/13/20 06:00 119 24 130/79 (96) 95 06/13/20 06:00 24 130/79 Mechanical Ventilator 80 06/13/20 06:00 25 Mechanical Ventilator 80 06/13/20 05:00 118 24 130/79 (96) 95 06/13/20 05:00 25 130/79 Mechanical Ventilator 80 06/13/20 05:00 25 80 06/13/20 04:00 80 06/13/20 04:00 Mechanical Ventilator Mechanical Ventilator 06/13/20 04:00 25 130/79 Mechanical Ventilator 80 06/13/20 04:00 25 80 06/13/20 04:00 121 06/13/20 04:00 102.4 120 22 118/75 (89) 96 06/13/20 03:58 117 23 80 06/13/20 03:00 25 126/67 Mechanical Ventilator 80 06/13/20 03:00 25 Mechanical Ventilator 80 06/13/20 03:00 120 25 126/67 (86) 98 06/13/20 02:00 119 26 118/67 (84) 98 06/13/20 02:00 26 118/67 Mechanical Ventilator 80 06/13/20 02:00 26 Mechanical Ventilator 80 06/13/20 01:00 28 128/65 Mechanical Ventilator 80 06/13/20 01:00 28 Mechanical Ventilator 80 06/13/20 01:00 122 29 128/65 (86) 97 06/13/20 00:56 102.0 06/13/20 00:48 27 117/67 Mechanical Ventilator 80 06/13/20 00:00 80 06/13/20 00:00 120 06/13/20 00:00 27 117/67 Mechanical Ventilator 80 06/13/20 00:00 27 Mechanical Ventilator 80 06/13/20 00:00 27 117/67 Mechanical Ventilator 80 06/13/20 00:00 102.3 120 27 117/67 (84) 97 06/13/20 00:00 Mechanical Ventilator Mechanical Ventilator 06/12/20 23:29 120 24 80 06/12/20 23:00 119 26 123/68 (86) 97 06/12/20 23:00 26 Mechanical Ventilator 80 06/12/20 23:00 26 123/68 Mechanical Ventilator 80 06/12/20 22:00 26 Mechanical Ventilator 80 06/12/20 22:00 26 121/70 Mechanical Ventilator 80 06/12/20 22:00 121 26 121/70 (87) 97 06/12/20 21:00 25 Mechanical Ventilator 80 06/12/20 21:00 25 122/71 Mechanical Ventilator 80 06/12/20 21:00 120 25 122/71 (88) 97 06/12/20 20:00 80 06/12/20 20:00 102.0 116 24 118/66 (83) 97 06/12/20 20:00 111 06/12/20 20:00 24 Mechanical Ventilator 80 06/12/20 20:00 24 118/66 Mechanical Ventilator 80 06/12/20 20:00 Mechanical Ventilator Mechanical Ventilator 06/12/20 19:41 118 26 80 06/12/20 19:00 23 Mechanical Ventilator 80 06/12/20 19:00 23 114/55 Mechanical Ventilator 80 06/12/20 19:00 116 24 118/66 (83) 98 06/12/20 18:00 112 23 114/55 (74) 98 06/12/20 18:00 26 Mechanical Ventilator 80 06/12/20 18:00 26 115/68 Mechanical Ventilator 80 06/12/20 17:48 102.0 06/12/20 17:15 27 Mechanical Ventilator 80 06/12/20 17:15 26 125/71 Mechanical Ventilator 80 06/12/20 17:00 112 26 115/68 (84) 97 06/12/20 16:00 120 06/12/20 16:00 Mechanical Ventilator Mechanical Ventilator 06/12/20 16:00 102.0 112 26 125/71 (89) 97 06/12/20 16:00 80 06/12/20 15:10 116 25 80 06/12/20 15:00 117 27 116/72 (87) 97 06/12/20 15:00 26 Mechanical Ventilator 80 06/12/20 15:00 26 117/68 Mechanical Ventilator 80 06/12/20 14:09 124 26 119/70 (86) 98 Intake and Output 06/12/20 06/13/20 19:00 07:00 Intake Total 1139.0 ml 1758.0 ml Output Total 360 ml 1020 ml Balance 779.0 ml 738.0 ml Free Water 100 ml 120 ml IV Total 259.0 ml 918.0 ml Tube Feeding 720 ml 720 ml Other 60 ml Output Urine Total 360 ml 1020 ml # Voids 30 # Bowel Movements 1 Laboratory Tests 06/13/20 04:15: White Blood Count 15.4H, Red Blood Count 3.59L, Hemoglobin 10.5L, Hematocrit 32.4L, Mean Corpuscular Volume 90, Mean Corpuscular Hemoglobin 29.3, Mean Corpuscular Hemoglobin Concent 32.5, Red Cell Distribution Width 15.5H, Platelet Count 247, Mean Platelet Volume 8.1, Neutrophils (%) (Auto) , Lymphocytes (%) (Auto) , Monocytes (%) (Auto) , Eosinophils (%) (Auto) , Basophils (%) (Auto) , Differential Total Cells Counted 100, Neutrophils % (Manual) 88H, Lymphocytes % (Manual) 9L, Monocytes % (Manual) 2, Eosinophils % (Manual) 1, Basophils % (Manual) 0, Band Neutrophils 0, Platelet Estimate Adequate, Platelet Morphology Normal, Hypochromasia 1+, Sodium Level 140, Potassium Level 3.8, Chloride Level 96L, Carbon Dioxide Level 36H, Anion Gap 8, Blood Urea Nitrogen 55H, Creatinine 3.5#H, Estimat Glomerular Filtration Rate 13.9, Glucose Level 177H, Calcium Level 9.5 Height (Feet): 5 Height (Inches): 5.00 Weight (Pounds): 308 General Appearance: lethargic EENT: normal ENT inspection Neck: normal alignment Cardiovascular: normal peripheral pulses, normal rate, regular rhythm Respiratory/Chest: chest wall non-tender, lungs clear, normal breath sounds Abdomen: normal bowel sounds, non tender, soft Extremities: normal inspection Edema: no edema noted Arm (L), no edema noted Arm (R), no edema noted Leg (L), no edema noted Leg (R), no edema noted Pedal (L), no edema noted Pedal (R), no edema noted Generalized Neurologic: motor weakness Skin: normal pigmentation, warm/dry Assessment/Plan Problem List: (1) Hypoxia ICD Codes: R09.02 - Hypoxemia SNOMED: 548950804 (2) Respiratory failure ICD Codes: J96.90 - Respiratory failure, unspecified, unspecified whether with hypoxia or hypercapnia SNOMED: 008871821 (3) Respiratory distress ICD Codes: R06.03 - Acute respiratory distress; J12.82 - Pneumonia due to coronavirus disease 2019 SNOMED: 852178469 (4) Pneumonia due to COVID-19 virus ICD Codes: U07.1 - COVID-19; J12.82 - Pneumonia due to coronavirus disease 2019 SNOMED: 276528457785190309 Status: unchanged Assessment/Plan: vent abx id pulm f/u cbc bmp am Tank Del Cid DO Jun 13, 2020 14:08
--- NOTE | 2020-06-13 15:16 | NUR ---
CASE MANAGEMENT:REVIEW SI;COVID PNEUMONIA. RESPIRATORY FAILURE~ETT/VENT SUPPORT. 103.0 127 29 136/71 94% ETT/VENT AC 15 TV 500 PEEP 10 FIO2 80% WBC+ 15.4 H/H- 10.5/32.4 CO2+ 36 BUN+ 55 CR+ 3.5 GLU+ 177 IS;FENTANYL GTT IV VERSED GTT IV ZOSYN IV Q8 LASIX GTT IV DIAMOX NG Q12 SOLU-MEDROL 30 mg IV QD IVF NS @ 50 ML/HR PROTONIX IV QD ICU STATUS DCP; PATIENT IS FROM HOME
--- NOTE | 2020-06-13 17:25 | NUR ---
NURSE NOTES: Ice packs placed on once again throughout the patient body, and chest. cool water flushed into the patient OG-tube, marrero remains draining dark red urine.
--- NOTE | 2020-06-13 18:17 | Surgery Progress Note ---
Surgery Progress Note Subjective Symptoms: worse Additional Comments leukocytosis renal insufficiency may need HD Objective Last 24 Hour Vital Signs Date Time Temp Pulse Resp B/P (MAP) Pulse Ox O2 Delivery O2 Flow Rate FiO2 06/13/20 16:30 110 19 105/58 (74) 93 06/13/20 16:00 100.9 108 18 94/53 (67) 95 06/13/20 16:00 109 06/13/20 16:00 70 06/13/20 16:00 Mechanical Ventilator Mechanical Ventilator 06/13/20 15:32 115 25 80 06/13/20 15:30 108 20 93/52 (66) 95 06/13/20 15:00 112 20 106/62 (77) 94 06/13/20 14:00 110 19 107/55 (72) 96 06/13/20 13:30 102.7 06/13/20 13:00 110 19 94/57 (69) 94 06/13/20 12:18 22 Mechanical Ventilator 70 06/13/20 12:00 70 06/13/20 12:00 Mechanical Ventilator Mechanical Ventilator 06/13/20 12:00 118 14 136/71 (92) 94 06/13/20 12:00 127 06/13/20 11:25 117 20 80 06/13/20 11:00 114 20 103/60 (74) 95 06/13/20 10:00 121 25 109/61 (77) 95 06/13/20 09:00 117 21 103/56 (72) 95 06/13/20 08:00 Mechanical Ventilator Mechanical Ventilator 06/13/20 08:00 103.0 125 20 112/76 (88) 98 06/13/20 08:00 70 06/13/20 08:00 127 06/13/20 07:38 126 22 80 06/13/20 07:00 25 127/81 Mechanical Ventilator 80 06/13/20 07:00 25 Mechanical Ventilator 80 06/13/20 07:00 123 23 127/81 (96) 95 06/13/20 06:30 119 24 06/13/20 06:00 119 24 130/79 (96) 95 06/13/20 06:00 24 130/79 Mechanical Ventilator 80 06/13/20 06:00 25 Mechanical Ventilator 80 06/13/20 05:00 118 24 130/79 (96) 95 06/13/20 05:00 25 130/79 Mechanical Ventilator 80 06/13/20 05:00 25 80 06/13/20 04:00 80 06/13/20 04:00 Mechanical Ventilator Mechanical Ventilator 06/13/20 04:00 25 130/79 Mechanical Ventilator 80 06/13/20 04:00 25 80 06/13/20 04:00 121 06/13/20 04:00 102.4 120 22 118/75 (89) 96 06/13/20 03:58 117 23 80 06/13/20 03:00 25 126/67 Mechanical Ventilator 80 06/13/20 03:00 25 Mechanical Ventilator 80 06/13/20 03:00 120 25 126/67 (86) 98 06/13/20 02:00 119 26 118/67 (84) 98 06/13/20 02:00 26 118/67 Mechanical Ventilator 80 06/13/20 02:00 26 Mechanical Ventilator 80 06/13/20 01:00 28 128/65 Mechanical Ventilator 80 06/13/20 01:00 28 Mechanical Ventilator 80 06/13/20 01:00 122 29 128/65 (86) 97 06/13/20 00:56 102.0 06/13/20 00:48 27 117/67 Mechanical Ventilator 80 06/13/20 00:00 80 06/13/20 00:00 120 06/13/20 00:00 27 117/67 Mechanical Ventilator 80 06/13/20 00:00 27 Mechanical Ventilator 80 06/13/20 00:00 27 117/67 Mechanical Ventilator 80 06/13/20 00:00 102.3 120 27 117/67 (84) 97 06/13/20 00:00 Mechanical Ventilator Mechanical Ventilator 06/12/20 23:29 120 24 80 06/12/20 23:00 119 26 123/68 (86) 97 06/12/20 23:00 26 Mechanical Ventilator 80 06/12/20 23:00 26 123/68 Mechanical Ventilator 80 06/12/20 22:00 26 Mechanical Ventilator 80 06/12/20 22:00 26 121/70 Mechanical Ventilator 80 06/12/20 22:00 121 26 121/70 (87) 97 06/12/20 21:00 25 Mechanical Ventilator 80 06/12/20 21:00 25 122/71 Mechanical Ventilator 80 06/12/20 21:00 120 25 122/71 (88) 97 06/12/20 20:00 80 1/20/21 20:00 102.0 116 24 118/66 (83) 97 06/12/20 20:00 111 06/12/20 20:00 24 Mechanical Ventilator 80 06/12/20 20:00 24 118/66 Mechanical Ventilator 80 06/12/20 20:00 Mechanical Ventilator Mechanical Ventilator 06/12/20 19:41 118 26 80 06/12/20 19:00 23 Mechanical Ventilator 80 06/12/20 19:00 23 114/55 Mechanical Ventilator 80 06/12/20 19:00 116 24 118/66 (83) 98 I&O Intake and Output 06/12/20 06/13/20 19:00 07:00 Intake Total 1139.0 ml 1758.0 ml Output Total 360 ml 1020 ml Balance 779.0 ml 738.0 ml Free Water 100 ml 120 ml IV Total 259.0 ml 918.0 ml Tube Feeding 720 ml 720 ml Other 60 ml Output Urine Total 360 ml 1020 ml # Voids 30 # Bowel Movements 1 Dressing: saturated Cardiovascular: RSR Respiratory: decreased breath sounds Abdomen: non-tender, present bowel sounds, non-distended Extremities: edema, no cyanosis Laboratory Tests Test 06/13/20 04:15 White Blood Count 15.4 K/UL (4.8-10.8) H Red Blood Count 3.59 M/UL (4.20-5.40) L Hemoglobin 10.5 G/DL (12.0-16.0) L Hematocrit 32.4 % (37.0-47.0) L Mean Corpuscular Volume 90 FL (80-99) Mean Corpuscular Hemoglobin 29.3 PG (27.0-31.0) Mean Corpuscular Hemoglobin Concent 32.5 G/DL (32.0-36.0) Red Cell Distribution Width 15.5 % (11.6-14.8) H Platelet Count 247 K/UL (150-450) Mean Platelet Volume 8.1 FL (6.5-10.1) Neutrophils (%) (Auto) % (45.0-75.0) Lymphocytes (%) (Auto) % (20.0-45.0) Monocytes (%) (Auto) % (1.0-10.0) Eosinophils (%) (Auto) % (0.0-3.0) Basophils (%) (Auto) % (0.0-2.0) Differential Total Cells Counted 100 Neutrophils % (Manual) 88 % (45-75) H Lymphocytes % (Manual) 9 % (20-45) L Monocytes % (Manual) 2 % (1-10) Eosinophils % (Manual) 1 % (0-3) Basophils % (Manual) 0 % (0-2) Band Neutrophils 0 % (0-8) Platelet Estimate Adequate Platelet Morphology Normal Hypochromasia 1+ Sodium Level 140 MMOL/L (136-145) Potassium Level 3.8 MMOL/L (3.5-5.1) Chloride Level 96 MMOL/L (98-107) L Carbon Dioxide Level 36 MMOL/L (21-32) H Anion Gap 8 mmol/L (5-15) Blood Urea Nitrogen 55 mg/dL (7-18) H Creatinine 3.5 MG/DL (0.55-1.30) #H Estimat Glomerular Filtration Rate 13.9 mL/min (>60) Glucose Level 177 MG/DL (74-106) H Calcium Level 9.5 MG/DL (8.5-10.1) Plan Problems: (1) Respiratory distress (2) Respiratory failure Assessment & Plan: 50-year-old female Covid positive respiratory insufficiency intubated on ventilatory support declining. Leukocytosis increase oxygen requirement. Vent settings per pulmonology reviewed identified and agree. Unfortunately further surgical invention at this time is not appropriate as patient is not a candidate and her current condition. Prognosis overall guarded. Tracheostomy can be considered in the future if recovering or shows improvement and requires unable to be weaned from ventilator support. Currently okay for nutritional optimization with NG tube. Will need significant monitoring for decubitus formation given patient's size and condition. Okay for air mattress tolerated. Turn every 2 hours as tolerated. Patient is otherwise critically ill and blood pressure labile. Will need to monitor closely.Bilateral infiltrates are again demonstrated. Stable tube and line posit ions. (3) Hypoxia (4) Pneumonia due to COVID-19 virus Assessment & Plan: ++ as per pulm and ID (5) Diabetes mellitus out of control Assessment & Plan: DAILY ESTIMATED NEEDS: Needs based on Critical care, obesity 11-14kcal/kg actual body wt (140kg) kcals/kg 9596-2996 total kcals 1.5-2.0g prot/kg IBW (64.5kg) g protein/kg 96-129 g total protein 25-30ml/kg abw (83kg) mL/kg 8245-3510 total fluid mLs NUTRITION DIAGNOSIS: Swallowing difficulty R/T respiratory failure as evidenced by pt orally intubated and sedated, on OGT feeds. CURRENT TF: Vital 1.2 goal of 60ml/hr ENTERAL NUTRITION RECOMMENDATIONS: Vital AF 1.2 @ 60ml/hr x 24 hrs to provide 1440ml, 1728kcal, 108g prot, 1168ml free water * Maintain current critical care and carb controlled TF formula of Vital AF * TF @ goal meeds 100% est kcal/prot needs * HOB over 30 degrees/ water flush per MD TF may be lowered to 55ml/hr for improved BG control while maintaining Kcal and pro needs. ADDITIONAL RECOMMENDATIONS: * Calibrated bedscale wt * Monitor Propofol rate, need for TF adjustment-> now off * Monitor BGs closely : now improved, on novolog q 6rs + NISS * Monitor lytes * Rec bowel regimen- now added Az Devine Jun 13, 2020 18:17
--- NOTE | 2020-06-13 19:00 | NUR ---
NURSE NOTES: Received patient from RAKEL Mejía. patient is sedated. sinus tachycardia on the monitor (HR 102). ETT 7.5, 23cm at the lip. vent settings AC 15 TV500 FiO2 70% PEEP 10, tolerating well. OGT and tube feeding running Vital AF @60ml/hr, tolerating well. marrero in place and draining well to gravity, gross hematuria noted. LINDA PICC in place, dressing clean, dry, and intact. bilateral soft restraints in place. Fentanyl @90mcg/hr, versed @5mg/hr, NS @50ml/hr. bed to lowest position and locked. call light within easy reach. side rails up x2. will continue plan of care.
[2020-06-13] MEDS: Dyna-Hex 2% Top Sol 2oz TOPIC SCH (20:06)
[2020-06-13] MEDS: Miralax 17gm pkt GT SCH (20:07)
--- NOTE | 2020-06-13 23:10 | NUR ---
NURSE NOTES: patient temp 100.5. tylenol given and cooling measures applied. will reassess.
[2020-06-14] VITALS (53 sets, daily range): BP systolic 91–130; BP diastolic 51–72
--- NOTE | 2020-06-14 01:00 | NUR ---
NURSE NOTES: patient temp 100.1. cooling measures continued. versed titrated from 5mg/hr to 4mg/hr. will monitor closely.
[2020-06-14] MEDS: fentaNYL 2500mcg/NS 250ml 250 ML IV SCH (03:00)
[2020-06-14 05:25] LABS: HEMATOCRIT 30.5 % (37.0-47.0); HEMOGLOBIN 9.7 G/DL (12.0-16.0); MEAN CORPUSCULAR VOLUME 92 FL (80-99); PLATELET COUNT 205 K/UL (150-450); RED CELL DISTRIBUTION WIDTH 15.3 % (11.6-14.8); WHITE BLOOD COUNT 11.1 K/UL (4.8-10.8)
[2020-06-14] MEDS: NovoLOG Insulin Flexpen SUBQ SCH ×8 (05:39→23:37)
[2020-06-14 06:22] LABS: % IRON SATURATION 21 % (15-50); IRON 36 ug/dL (50-175); TOTAL IRON BINDING CAPACITY 171 ug/dL (250-450)
--- NOTE | 2020-06-14 06:26 | General Progress Note ---
Subjective ROS Limited/Unobtainable: Yes Allergies: Coded Allergies: No Known Allergies (Unverified , 05/28/20) Subjective events noted interval notes reviewed glucose values improved Item Value Date Time Bedside Blood Glucose 153 mg/dl H 06/14/20 0600 Bedside Blood Glucose 153 mg/dl H 06/14/20 0000 Bedside Blood Glucose 290 mg/dl H 06/13/20 1848 Bedside Blood Glucose 246 mg/dl H 06/13/20 1306 Bedside Blood Glucose 203 mg/dl H 06/13/20 0604 Objective Last 24 Hour Vital Signs Date Time Temp Pulse Resp B/P (MAP) Pulse Ox O2 Delivery O2 Flow Rate FiO2 06/14/20 06:00 15 95/57 Mechanical Ventilator 70 06/14/20 06:00 15 Mechanical Ventilator 70 06/14/20 06:00 100 15 95/57 (70) 97 06/14/20 05:00 16 96/60 Mechanical Ventilator 70 06/14/20 05:00 16 Mechanical Ventilator 70 06/14/20 05:00 102 16 96/60 (72) 94 06/14/20 04:00 100.1 104 15 96/64 (75) 97 06/14/20 04:00 70 06/14/20 04:00 100 06/14/20 04:00 15 96/64 Mechanical Ventilator 70 06/14/20 04:00 15 Mechanical Ventilator 70 06/14/20 04:00 Mechanical Ventilator Mechanical Ventilator 06/14/20 03:00 101 15 92/64 (73) 97 06/14/20 03:00 15 92/64 70 06/14/20 03:00 15 Mechanical Ventilator 70 06/14/20 02:00 20 100/68 Mechanical Ventilator 70 06/14/20 02:00 20 Mechanical Ventilator 70 06/14/20 02:00 105 20 100/68 (79) 100 06/14/20 01:00 102 15 98/64 (75) 97 06/14/20 01:00 15 98/64 Mechanical Ventilator 70 06/14/20 01:00 15 Mechanical Ventilator 70 06/14/20 00:00 100.5 98 15 97/62 (74) 97 06/14/20 00:00 Mechanical Ventilator Mechanical Ventilator 06/14/20 00:00 15 97/62 Mechanical Ventilator 70 06/14/20 00:00 15 Mechanical Ventilator 70 06/13/20 23:40 100.5 06/13/20 23:00 102 15 98/64 (75) 96 06/13/20 23:00 15 98/64 Mechanical Ventilator 70 06/13/20 23:00 15 Mechanical Ventilator 70 06/13/20 22:00 108 16 106/70 (82) 96 06/13/20 22:00 16 106/70 Mechanical Ventilator 70 06/13/20 22:00 16 Mechanical Ventilator 70 06/13/20 21:00 112 18 106/70 (82) 95 06/13/20 21:00 18 106/70 Mechanical Ventilator 70 06/13/20 21:00 18 Mechanical Ventilator 70 06/13/20 20:00 70 06/13/20 20:00 100.9 109 19 99/71 (80) 97 06/13/20 20:00 19 99/71 Mechanical Ventilator 70 06/13/20 20:00 19 Mechanical Ventilator 70 06/13/20 20:00 Mechanical Ventilator Mechanical Ventilator 06/13/20 20:00 107 06/13/20 19:50 105 18 80 06/13/20 19:00 111 19 106/68 (81) 96 06/13/20 19:00 19 106/68 Mechanical Ventilator 70 06/13/20 19:00 19 Mechanical Ventilator 70 06/13/20 18:30 110 18 102/64 (77) 96 06/13/20 18:00 116 21 104/63 (77) 93 06/13/20 18:00 18 104/63 Mechanical Ventilator 70 06/13/20 18:00 18 Mechanical Ventilator 70 06/13/20 17:30 110 19 104/55 (71) 91 06/13/20 17:00 110 18 108/63 (78) 92 06/13/20 17:00 19 108/63 Mechanical Ventilator 70 06/13/20 17:00 19 Mechanical Ventilator 70 06/13/20 16:30 110 19 105/58 (74) 93 06/13/20 16:00 100.9 108 18 94/53 (67) 95 06/13/20 16:00 109 06/13/20 16:00 70 06/13/20 16:00 19 94/53 Mechanical Ventilator 70 06/13/20 16:00 19 Mechanical Ventilator 70 06/13/20 16:00 Mechanical Ventilator Mechanical Ventilator 06/13/20 15:32 115 25 80 06/13/20 15:30 108 20 93/52 (66) 95 06/13/20 15:00 23 101/53 Mechanical Ventilator 70 06/13/20 15:00 23 Mechanical Ventilator 70 06/13/20 15:00 112 20 106/62 (77) 94 06/13/20 14:00 110 19 107/55 (72) 96 06/13/20 14:00 21 112/65 Mechanical Ventilator 70 06/13/20 14:00 21 Mechanical Ventilator 70 06/13/20 13:30 102.7 06/13/20 13:00 110 19 94/57 (69) 94 06/13/20 13:00 15 109/64 Mechanical Ventilator 70 06/13/20 13:00 15 Mechanical Ventilator 70 06/13/20 12:18 22 Mechanical Ventilator 70 06/13/20 12:00 70 06/13/20 12:00 Mechanical Ventilator Mechanical Ventilator 06/13/20 12:00 15 105/67 Mechanical Ventilator 70 06/13/20 12:00 15 Mechanical Ventilator 70 06/13/20 12:00 118 14 136/71 (92) 94 06/13/20 12:00 127 06/13/20 11:25 117 20 80 06/13/20 11:00 22 103/60 Mechanical Ventilator 70 06/13/20 11:00 22 Mechanical Ventilator 70 06/13/20 11:00 114 20 103/60 (74) 95 06/13/20 10:00 21 109/61 Mechanical Ventilator 70 06/13/20 10:00 21 Mechanical Ventilator 70 06/13/20 10:00 121 25 109/61 (77) 95 06/13/20 09:00 22 103/56 Mechanical Ventilator 70 06/13/20 09:00 22 Mechanical Ventilator 70 06/13/20 09:00 117 21 103/56 (72) 95 06/13/20 08:00 Mechanical Ventilator Mechanical Ventilator 06/13/20 08:00 103.0 125 20 112/76 (88) 98 06/13/20 08:00 70 06/13/20 08:00 23 112/76 Mechanical Ventilator 70 06/13/20 08:00 23 Mechanical Ventilator 70 06/13/20 08:00 127 06/13/20 07:38 126 22 80 06/13/20 07:00 25 127/81 Mechanical Ventilator 80 06/13/20 07:00 25 Mechanical Ventilator 80 06/13/20 07:00 123 23 127/81 (96) 95 06/13/20 06:30 119 24 Intake and Output 06/13/20 06/14/20 19:00 07:00 Intake Total 1328.19630 ml 1524 ml Output Total 2050 ml 1780 ml Balance -721.73334 ml -256 ml Free Water 325 ml 180 ml IV Total 253.94373 ml 684 ml Tube Feeding 720 ml 660 ml Other 30 ml Output Urine Total 2050 ml 1780 ml Laboratory Tests 06/13/20 12:21: POC Whole Blood Glucose 246H 06/14/20 00:28: POC Whole Blood Glucose 148H 06/14/20 03:30: White Blood Count 11.1H, Red Blood Count 3.30L, Hemoglobin 9.7L, Hematocrit 30.5L, Mean Corpuscular Volume 92, Mean Corpuscular Hemoglobin 29.4, Mean Corpuscular Hemoglobin Concent 31.8L, Red Cell Distribution Width 15.3H, Plat elet Count 205, Mean Platelet Volume 8.2, Neutrophils (%) (Auto) , Lymphocytes (%) (Auto) , Monocytes (%) (Auto) , Eosinophils (%) (Auto) , Basophils (%) (Auto) , Neutrophils % (Manual) [Pending], Lymphocytes % (Manual) [Pending], Platelet Estimate [Pending], Platelet Morphology [Pending], Sodium Level [Pending], Potassium Level [Pending], Chloride Level [Pending], Carbon Dioxide L evel [Pending], Blood Urea Nitrogen [Pending], Creatinine [Pending], Estimat Glomerular Filtration Rate [Pending], Glucose Level [Pending], Hemoglobin A1c [Pending], Uric Acid [Pending], Calcium Level [Pending], Phosphorus Level [Pending], Magnesium Level [Pending], Iron Level [Pending], Unsaturated Iron Binding [Pending], Ferritin [Pending], Total Bilirubin [Pending], Aspartate Am sandy Transf (AST/SGOT) [Pending], Alanine Aminotransferase (ALT/SGPT) [Pending], Alkaline Phosphatase [Pending], C-Reactive Protein, Quantitative [Pending], Pro-B-Type Natriuretic Peptide [Pending], Total Protein [Pending], Albumin [Pending], Globulin [Pending], Triglycerides Level [Pending], Cholesterol Level [Pending], LDL Cholesterol [Pending], HDL Cholesterol [Pending], Cholesterol/HDL Ratio [Pending], Vitamin B12 Level [Pending], Vitamin D 25-Hydroxy [Pending], 25-Hydroxy Vitamin D2 [Pending], 25-Hydroxy Vitamin D3 [Pending], Folate [Pending] Height (Feet): 5 Height (Inches): 5.00 Weight (Pounds): 308 Objective Current Medications Medications (Trade) Dose Ordered Sig/Zelda Route PRN Reason Start Time Stop Time Status Last Admin Dose Admin Acetaminophen (Tylenol) 650 mg Q4H PRN NG Temp >100.5 05/31/20 21:45 06/30/20 21:44 06/13/20 12:33 Acetaminophen (Tylenol) 650 mg Q6H PRN NG Mild Pain (Pain Scale 1-3) 06/06/20 18:00 07/06/20 17:59 06/13/20 23:10 Chlorhexidine Gluconate (Inna-Hex 2%) 1 applic DAILY@2000 TOPIC 05/30/20 20:00 08/28/20 19:59 06/13/20 20:06 Dextrose (Dextrose 50%) 25 ml Q30M PRN IV Hypoglycemia 06/05/20 10:45 09/03/20 10:44 Dextrose (Dextrose 50%) 50 ml Q30M PRN IV Hypoglycemia 06/05/20 10:45 09/03/20 10:44 Docusate Sodium (Colace) 100 mg Q12HR GT 06/07/20 21:00 07/07/20 20:59 06/13/20 20:07 Enoxaparin Sodium (Lovenox) 40 mg DAILY SUBQ 05/30/20 10:00 08/28/20 09:59 06/08/20 09:08 Fentanyl Citrate 250 ml @ 1 mls/hr Q24H IV 06/13/20 01:15 06/15/20 01:14 06/14/20 03:00 Insulin Aspart (NovoLOG) EVERY 6 HOURS SUBQ 06/07/20 00:00 09/03/20 11:59 06/14/20 05:39 Insulin Aspart (NovoLOG) 23 units EVERY 6 HOURS SUBQ 06/13/20 12:00 09/04/20 08:59 06/14/20 05:39 Methylprednisolone Sodium Succinate (Solu-MEDROL) 30 mg DAILY IVP 06/11/20 09:00 09/09/20 08:59 06/13/20 09:30 Midazolam HCl 100 mg/Sodium Chloride 200 ml @ 0 mls/hr Q24H PRN IV sedation 06/12/20 16:30 06/14/20 16:29 06/13/20 12:18 Pantoprazole (Protonix) 40 mg Q12HR IVP 06/13/20 21:00 07/03/20 08:59 06/13/20 20:07 Piperacillin Sod/ Tazobactam Sod 3.375 gm/Sodium Chloride 110 ml @ 27.5 mls/hr Q12HR IVPB 06/13/20 21:00 06/20/20 20:59 06/13/20 20:09 Polyethylene Glycol (Miralax) 17 gm BEDTIME GT 06/07/20 21:00 07/07/20 20:59 06/13/20 20:07 Sodium Chloride 1,000 ml @ 50 mls/hr Q20H IV 06/06/20 08:00 07/06/20 07:59 06/13/20 19:59 Assessment/Plan Problem List: (1) Diabetes mellitus out of control ICD Codes: E11.65 - Type 2 diabetes mellitus with hyperglycemia SNOMED: 22405869, 255852207 (2) Pneumonia due to COVID-19 virus ICD Codes: U07.1 - COVID-19; J12.82 - Pneumonia due to coronavirus disease 2019 SNOMED: 741534473097537022 (3) Respiratory distress ICD Codes: R06.03 - Acute respiratory distress; J12.82 - Pneumonia due to coronavirus disease 2019 SNOMED: 175548939 Status: unchanged Assessment/Plan: continue Novolog 23 units every 6 hours continue Novolog sliding scale every 6 hours Huber Adame MD Jun 14, 2020 06:26
[2020-06-14 06:35] LABS: ALANINE AMINOTRANSFERASE 23 U/L (12-78); ALBUMIN/GLOBULIN RATIO 0.4 (1.0-2.7); ALKALINE PHOSPHATASE 41 U/L (46-116); ANION GAP 5 mmol/L (5-15); ASPARTATE AMINO TRANSFERASE 29 U/L (15-37); BILIRUBIN,TOTAL 0.6 MG/DL (0.2-1.0); BLOOD UREA NITROGEN 53 mg/dL (7-18); CALCIUM 9.1 MG/DL (8.5-10.1); CARBON DIOXIDE 37 MMOL/L (21-32); CHLORIDE 102 MMOL/L (98-107); CHOLESTEROL 250 MG/DL (< 200); CREATININE 1.4 MG/DL (0.55-1.30); HDL CHOLESTEROL 27 MG/DL (40-60); PHOSPHORUS 3.9 MG/DL (2.5-4.9); POTASSIUM 3.1 MMOL/L (3.5-5.1); SODIUM 144 MMOL/L (136-145); TRIGLYCERIDES 240 MG/DL (30-150)
--- NOTE | 2020-06-14 06:45 | NUR ---
RESPIRATORY NOTE: PT received on ACVC: 15, 500, 70%, +10. FiO2 was titrated to 60% at this time and SpO2 is currently 96%. Alarms are on and audible. Vent circuit is secure and out of the way. Airway is secure and patent. Bilateral soft restrains securely in place. No s/s of respiratory distress noted at this time. Will continue to closely monitor.
--- NOTE | 2020-06-14 07:18 | NUR ---
NURSE HAND-OFF REPORT: Latest Vital Signs: Temperature 100.1 , Pulse 102 , B/P 94 /56 , Respiratory Rate 27 , O2 SAT 97 , Mechanical Ventilator, O2 Flow Rate . Vital Sign Comment: stable EKG Rhythm: Sinus Tachycardia Rhythm change?: N MD Notified?: - MD Response: Latest Meyers Fall Score: 70 Fall Risk: High Risk Safety Measures: Call light Within Reach, Bed Alarm Zone 1, Side Rails Side Rails x2, Bed position Low and Locked. Fall Precautions: Yellow Socks Yellow Gown Door Sign Patient Fall Education Report given to RAKEL Jennings.
--- NOTE | 2020-06-14 07:19 | NUR ---
NURSE NOTES: Received pt from RAKEL Lizama. Pt sedated on fentanyl and versed and intubated 7.5 ET tube with 23cm at the lip line. Pt tolerating vent setting with no sign of distress. Pt does not open eyes to voice or pain. Pupils 2 and sluggish. OGT noted with tube feeding running and no residual noted. Tube verified with auscultation. Lennon noted with hematuria/cranberry colored urine/clots. MD aware. Will ask MD if lovenox should remain held although plt 205 thia AM. Skin intact. Right upper arm PICC line in place. Dressing dry and intact. K 3.1 this AM. Will ensure Dr Tyler is aware when he rounds on the pt. Pt repositioned and oral care performed. Will continue to monitor.
--- NOTE | 2020-06-14 07:36 | Hematology/Onc Progress Note ---
Assessment/Plan Assessment/Plan # Thrombocytopenia is due to infection/underlying covid19+++ --> ABX ceftriaxone -->zosyn --> on steriods likely cause of initial wbc --> per pulm --> plt 107->156-->192-->205 --> smear reviewed # Anemia due to chronic disease --> hgb goal is >7 -> hgb trend 10-->9.8 --> transfuse prn --> ferritin is >1000 --> hold off on iron # Elevated ddimer due to covid19++ --> duplex legs is negative --> underlying covid rx # Hypoxia -> due to covid19 # Hypoxemia --> rx same as above # Respiratory failure --> on vent --> per pulm # Pneumonia due to COVID-19 virus --> per pulm rx -> sp remdesivir # Diabetes mellitus out of control --> hgb a1c goal <7 # Poor prognosis # Dvt ppx lovenox sq Appreciate consultation and bowen RN Subjective Allergies: Coded Allergies: No Known Allergies (Unverified , 05/28/20) All Systems: reviewed and negative except above Subjective 06/10 nv, on vent, with ogt, on fentanyl and versed, plt stable 06/11 nv, vent adjusted is on ogt, meds reviewed 06/12 nv, vent, meds noted, labs noted, no bleeding, hgb 10.4 06/13 nv, is on vent, meds reviewed, no bleeding, cbc reviewed 06/14 nv, on vent, tachy, labs reviewed, gross hematuria, febrile overnight, abx Objective Objective Current Medications Medications (Trade) Dose Ordered Sig/Zelda Route PRN Reason Start Time Stop Time Status Last Admin Dose Admin Acetaminophen (Tylenol) 650 mg Q4H PRN NG Temp >100.5 05/31/20 21:45 06/30/20 21:44 06/13/20 12:33 Acetaminophen (Tylenol) 650 mg Q6H PRN NG Mild Pain (Pain Scale 1-3) 06/06/20 18:00 07/06/20 17:59 06/13/20 23:10 Chlorhexidine Gluconate (Inna-Hex 2%) 1 applic DAILY@1999 TOPIC 05/30/20 20:00 08/28/20 19:59 06/13/20 20:06 Dextrose (Dextrose 50%) 25 ml Q30M PRN IV Hypoglycemia 06/05/20 10:45 09/03/20 10:44 Dextrose (Dextrose 50%) 50 ml Q30M PRN IV Hypoglycemia 06/05/20 10:45 09/03/20 10:44 Docusate Sodium (Colace) 100 mg Q12HR GT 06/07/20 21:00 07/07/20 20:59 06/13/20 20:07 Enoxaparin Sodium (Lovenox) 40 mg DAILY SUBQ 05/30/20 10:00 08/28/20 09:59 06/08/20 09:08 Fentanyl Citrate 250 ml @ 1 mls/hr Q24H IV 06/13/20 01:15 06/15/20 01:14 06/14/20 03:00 Insulin Aspart (NovoLOG) EVERY 6 HOURS SUBQ 06/07/20 00:00 09/03/20 11:59 06/14/20 05:39 Insulin Aspart (NovoLOG) 23 units EVERY 6 HOURS SUBQ 06/13/20 12:00 09/04/20 08:59 06/14/20 05:39 Methylprednisolone Sodium Succinate (Solu-MEDROL) 30 mg DAILY IVP 06/11/20 09:00 09/09/20 08:59 06/13/20 09:30 Midazolam HCl 100 mg/Sodium Chloride 200 ml @ 0 mls/hr Q24H PRN IV sedation 06/12/20 16:30 06/14/20 16:29 06/13/20 12:18 Pantoprazole (Protonix) 40 mg Q12HR IVP 06/13/20 21:00 07/03/20 08:59 06/13/20 20:07 Piperacillin Sod/ Tazobactam Sod 3.375 gm/Sodium Chloride 110 ml @ 27.5 mls/hr Q12HR IVPB 06/13/20 21:00 06/20/20 20:59 06/13/20 20:09 Polyethylene Glycol (Miralax) 17 gm BEDTIME GT 06/07/20 21:00 07/07/20 20:59 06/13/20 20:07 Sodium Chloride 1,000 ml @ 50 mls/hr Q20H IV 06/06/20 08:00 07/06/20 07:59 06/13/20 19:59 Last 24 Hour Vital Signs Date Time Temp Pulse Resp B/P (MAP) Pulse Ox O2 Delivery O2 Flow Rate FiO2 06/14/20 07:00 27 94/56 Mechanical Ventilator 70 06/14/20 07:00 27 Mechanical Ventilator 70 06/14/20 07:00 102 27 94/56 (69) 97 06/14/20 06:30 100 15 06/14/20 06:00 15 95/57 Mechanical Ventilator 70 06/14/20 06:00 15 Mechanical Ventilator 70 06/14/20 06:00 100 15 95/57 (70) 97 06/14/20 05:00 16 96/60 Mechanical Ventilator 70 06/14/20 05:00 16 Mechanical Ventilator 70 06/14/20 05:00 102 16 96/60 (72) 94 06/14/20 04:45 15 Mechanical Ventilator 70 06/14/20 04:30 15 Mechanical Ventilator 70 06/14/20 04:15 15 Mechanical Ventilator 70 06/14/20 04:00 100.1 104 15 96/64 (75) 97 06/14/20 04:00 70 06/14/20 04:00 100 06/14/20 04:00 15 96/64 Mechanical Ventilator 70 06/14/20 04:00 15 Mechanical Ventilator 70 06/14/20 04:00 Mechanical Ventilator Mechanical Ventilator 06/14/20 03:00 101 15 92/64 (73) 97 06/14/20 03:00 15 92/64 70 06/14/20 03:00 15 Mechanical Ventilator 70 06/14/20 02:00 20 100/68 Mechanical Ventilator 70 06/14/20 02:00 20 Mechanical Ventilator 70 06/14/20 02:00 105 20 100/68 (79) 100 06/14/20 01:45 15 Mechanical Ventilator 70 06/14/20 01:30 15 Mechanical Ventilator 70 06/14/20 01:15 15 Mechanical Ventilator 70 06/14/20 01:00 102 15 98/64 (75) 97 06/14/20 01:00 15 98/64 Mechanical Ventilator 70 06/14/20 01:00 15 Mechanical Ventilator 70 06/14/20 00:00 100.5 98 15 97/62 (74) 97 06/14/20 00:00 Mechanical Ventilator Mechanical Ventilator 06/14/20 00:00 15 97/62 Mechanical Ventilator 70 06/14/20 00:00 15 Mechanical Ventilator 70 06/13/20 23:40 100.5 06/13/20 23:00 102 15 98/64 (75) 96 06/13/20 23:00 15 98/64 Mechanical Ventilator 70 06/13/20 23:00 15 Mechanical Ventilator 70 06/13/20 22:00 108 16 106/70 (82) 96 06/13/20 22:00 16 106/70 Mechanical Ventilator 70 06/13/20 22:00 16 Mechanical Ventilator 70 06/13/20 21:00 112 18 106/70 (82) 95 06/13/20 21:00 18 106/70 Mechanical Ventilator 70 06/13/20 21:00 18 Mechanical Ventilator 70 06/13/20 20:00 70 06/13/20 20:00 100.9 109 19 99/71 (80) 97 06/13/20 20:00 19 99/71 Mechanical Ventilator 70 06/13/20 20:00 19 Mechanical Ventilator 70 06/13/20 20:00 Mechanical Ventilator Mechanical Ventilator 06/13/20 20:00 107 06/13/20 19:50 105 18 80 06/13/20 19:00 111 19 106/68 (81) 96 06/13/20 19:00 19 106/68 Mechanical Ventilator 70 06/13/20 19:00 19 Mechanical Ventilator 70 06/13/20 18:30 110 18 102/64 (77) 96 06/13/20 18:00 116 21 104/63 (77) 93 06/13/20 18:00 18 104/63 Mechanical Ventilator 70 06/13/20 18:00 18 Mechanical Ventilator 70 06/13/20 17:30 110 19 104/55 (71) 91 06/13/20 17:00 110 18 108/63 (78) 92 06/13/20 17:00 19 108/63 Mechanical Ventilator 70 06/13/20 17:00 19 Mechanical Ventilator 70 06/13/20 16:30 110 19 105/58 (74) 93 06/13/20 16:00 100.9 108 18 94/53 (67) 95 06/13/20 16:00 109 06/13/20 16:00 70 06/13/20 16:00 19 94/53 Mechanical Ventilator 70 06/13/20 16:00 19 Mechanical Ventilator 70 06/13/20 16:00 Mechanical Ventilator Mechanical Ventilator 06/13/20 15:32 115 25 80 06/13/20 15:30 108 20 93/52 (66) 95 06/13/20 15:00 23 101/53 Mechanical Ventilator 70 06/13/20 15:00 23 Mechanical Ventilator 70 06/13/20 15:00 112 20 106/62 (77) 94 06/13/20 14:00 110 19 107/55 (72) 96 06/13/20 14:00 21 112/65 Mechanical Ventilator 70 06/13/20 14:00 21 Mechanical Ventilator 70 06/13/20 13:30 102.7 06/13/20 13:00 110 19 94/57 (69) 94 06/13/20 13:00 15 109/64 Mechanical Ventilator 70 06/13/20 13:00 15 Mechanical Ventilator 70 06/13/20 12:18 22 Mechanical Ventilator 70 06/13/20 12:00 70 06/13/20 12:00 Mechanical Ventilator Mechanical Ventilator 06/13/20 12:00 15 105/67 Mechanical Ventilator 70 06/13/20 12:00 15 Mechanical Ventilator 70 06/13/20 12:00 118 14 136/71 (92) 94 06/13/20 12:00 127 06/13/20 11:25 117 20 80 06/13/20 11:00 22 103/60 Mechanical Ventilator 70 06/13/20 11:00 22 Mechanical Ventilator 70 06/13/20 11:00 114 20 103/60 (74) 95 06/13/20 10:00 21 109/61 Mechanical Ventilator 70 06/13/20 10:00 21 Mechanical Ventilator 70 06/13/20 10:00 121 25 109/61 (77) 95 06/13/20 09:00 22 103/56 Mechanical Ventilator 70 06/13/20 09:00 22 Mechanical Ventilator 70 06/13/20 09:00 117 21 103/56 (72) 95 06/13/20 08:00 Mechanical Ventilator Mechanical Ventilator 06/13/20 08:00 103.0 125 20 112/76 (88) 98 06/13/20 08:00 70 06/13/20 08:00 23 112/76 Mechanical Ventilator 70 06/13/20 08:00 23 Mechanical Ventilator 70 06/13/20 08:00 127 06/13/20 07:38 126 22 80 06/13/20 07:00 25 127/81 Mechanical Ventilator 80 06/13/20 07:00 25 Mechanical Ventilator 80 06/13/20 07:00 123 23 127/81 (96) 95 06/13/20 06:30 119 24 06/13/20 06:00 119 24 130/79 (96) 95 06/13/20 06:00 24 130/79 Mechanical Ventilator 80 06/13/20 06:00 25 Mechanical Ventilator 80 06/13/20 05:00 118 24 130/79 (96) 95 06/13/20 05:00 25 130/79 Mechanical Ventilator 80 06/13/20 05:00 25 80 06/13/20 04:00 80 06/13/20 04:00 Mechanical Ventilator Mechanical Ventilator 06/13/20 04:00 25 130/79 Mechanical Ventilator 80 06/13/20 04:00 25 80 06/13/20 04:00 121 06/13/20 04:00 102.4 120 22 118/75 (89) 96 06/13/20 03:58 117 23 80 06/13/20 03:00 25 126/67 Mechanical Ventilator 80 06/13/20 03:00 25 Mechanical Ventilator 80 06/13/20 03:00 120 25 126/67 (86) 98 06/13/20 02:00 119 26 118/67 (84) 98 06/13/20 02:00 26 118/67 Mechanical Ventilator 80 06/13/20 02:00 26 Mechanical Ventilator 80 06/13/20 01:00 28 128/65 Mechanical Ventilator 80 06/13/20 01:00 28 Mechanical Ventilator 80 06/13/20 01:00 122 29 128/65 (86) 97 06/13/20 00:56 102.0 06/13/20 00:48 27 117/67 Mechanical Ventilator 80 06/13/20 00:00 80 06/13/20 00:00 120 06/13/20 00:00 27 117/67 Mechanical Ventilator 80 06/13/20 00:00 27 Mechanical Ventilator 80 06/13/20 00:00 27 117/67 Mechanical Ventilator 80 06/13/20 00:00 102.3 120 27 117/67 (84) 97 06/13/20 00:00 Mechanical Ventilator Mechanical Ventilator 06/12/20 23:29 120 24 80 06/12/20 23:00 119 26 123/68 (86) 97 06/12/20 23:00 26 Mechanical Ventilator 80 06/12/20 23:00 26 123/68 Mechanical Ventilator 80 06/12/20 22:00 26 Mechanical Ventilator 80 06/12/20 22:00 26 121/70 Mechanical Ventilator 80 06/12/20 22:00 121 26 121/70 (87) 97 06/12/20 21:00 25 Mechanical Ventilator 80 06/12/20 21:00 25 122/71 Mechanical Ventilator 80 06/12/20 21:00 120 25 122/71 (88) 97 06/12/20 20:00 80 06/12/20 20:00 102.0 116 24 118/66 (83) 97 06/12/20 20:00 111 06/12/20 20:00 24 Mechanical Ventilator 80 06/12/20 20:00 24 118/66 Mechanical Ventilator 80 06/12/20 20:00 Mechanical Ventilator Mechanical Ventilator 06/12/20 19:41 118 26 80 06/12/20 19:00 23 Mechanical Ventilator 80 06/12/20 19:00 23 114/55 Mechanical Ventilator 80 06/12/20 19:00 116 24 118/66 (83) 98 06/12/20 18:00 112 23 114/55 (74) 98 06/12/20 18:00 26 Mechanical Ventilator 80 06/12/20 18:00 26 115/68 Mechanical Ventilator 80 06/12/20 17:48 102.0 06/12/20 17:15 27 Mechanical Ventilator 80 06/12/20 17:15 26 125/71 Mechanical Ventilator 80 06/12/20 17:00 112 26 115/68 (84) 97 06/12/20 16:00 120 06/12/20 16:00 Mechanical Ventilator Mechanical Ventilator 06/12/20 16:00 102.0 112 26 125/71 (89) 97 21 16:00 80 06/12/20 15:10 116 25 80 06/12/20 15:00 117 27 116/72 (87) 97 06/12/20 15:00 26 Mechanical Ventilator 80 06/12/20 15:00 26 117/68 Mechanical Ventilator 80 06/12/20 14:09 124 26 119/70 (86) 98 06/12/20 14:00 26 Mechanical Ventilator 80 06/12/20 14:00 26 119/70 Mechanical Ventilator 80 06/12/20 13:00 128 26 118/66 (83) 98 06/12/20 13:00 27 Mechanical Ventilator 80 06/12/20 13:00 27 118/66 Mechanical Ventilator 80 06/12/20 12:39 101.7 06/12/20 12:00 80 06/12/20 12:00 134 06/12/20 12:00 Mechanical Ventilator Mechanical Ventilator 06/12/20 12:00 101.7 130 27 126/61 (82) 97 06/12/20 12:00 29 Mechanical Ventilator 80 06/12/20 12:00 29 126/61 Mechanical Ventilator 80 06/12/20 11:10 118 24 80 06/12/20 11:00 27 Mechanical Ventilator 80 06/12/20 11:00 27 115/63 Mechanical Ventilator 80 06/12/20 11:00 133 28 115/68 (84) 94 06/12/20 10:00 100.8 125 28 110/56 (74) 96 06/12/20 10:00 28 Mechanical Ventilator 80 06/12/20 10:00 24 110/56 Mechanical Ventilator 80 06/12/20 09:00 100.3 122 22 108/62 (77) 95 06/12/20 09:00 24 Mechanical Ventilator 80 06/12/20 09:00 24 108/68 Mechanical Ventilator 80 06/12/20 08:00 Mechanical Ventilator Mechanical Ventilator 06/12/20 08:00 124 06/12/20 08:00 21 Mechanical Ventilator 80 06/12/20 08:00 21 115/61 Mechanical Ventilator 80 06/12/20 08:00 80 06/12/20 08:00 100.8 119 21 115/61 (79) 96 Intake and Output 06/13/20 06/14/20 19:00 07:00 Intake Total 1328.15181 ml 1661 ml Output Total 2050 ml 1905 ml Balance -721.11165 ml -244 ml Free Water 325 ml 180 ml IV Total 253.75253 ml 761 ml Tube Feeding 720 ml 720 ml Other 30 ml Output Urine Total 2050 ml 1905 ml Labs Test 06/11/20 07:48 06/11/20 17:05 06/12/20 00:21 06/12/20 04:25 Arterial Blood pH 7.401 (7.350-7.450) Arterial Blood Partial Pressure CO2 71.4 mmHg (35.0-45.0) Arterial Blood Partial Pressure O2 83.4 mmHg (75.0-100.0) Arterial Blood HCO3 43.3 mmol/L (22.0-26.0) Arterial Blood Oxygen Saturation 95.3 % (95-100) Arterial Blood Base Excess 15.7 (-2-2) Jeremiah Test Positive POC Whole Blood Glucose 260 MG/DL (74-106) White Blood Count 11.9 K/UL (4.8-10.8) Red Blood Count 3.60 M/UL (4.20-5.40) Hemoglobin 10.4 G/DL (12.0-16.0) Hematocrit 33.0 % (37.0-47.0) Mean Corpuscular Volume 92 FL (80-99) Mean Corpuscular Hemoglobin 28.9 PG (27.0-31.0) Mean Corpuscular Hemoglobin Concent 31.6 G/DL (32.0-36.0) Red Cell Distribution Width 14.9 % (11.6-14.8) Platelet Count 192 K/UL (150-450) Mean Platelet Volume 8.0 FL (6.5-10.1) Neutrophils (%) (Auto) % (45.0-75.0) Lymphocytes (%) (Auto) % (20.0-45.0) Monocytes (%) (Auto) % (1.0-10.0) Eosinophils (%) (Auto) % (0.0-3.0) Basophils (%) (Auto) % (0.0-2.0) Sodium Level 138 MMOL/L (136-145) Potassium Level 3.5 MMOL/L (3.5-5.1) Chloride Level 95 MMOL/L (98-107) Carbon Dioxide Level 40 MMOL/L (21-32) Anion Gap 2 mmol/L (5-15) Blood Urea Nitrogen 23 mg/dL (7-18) Creatinine 0.9 MG/DL (0.55-1.30) Estimat Glomerular Filtration Rate > 60 mL/min (>60) Glucose Level 112 MG/DL (74-106) Calcium Level 8.8 MG/DL (8.5-10.1) Test 06/12/20 08:17 06/12/20 11:52 06/13/20 04:15 06/13/20 12:21 Arterial Blood pH 7.500 (7.350-7.450) Arterial Blood Partial Pressure CO2 49.1 mmHg (35.0-45.0) Arterial Blood Partial Pressure O2 60.1 mmHg (75.0-100.0) Arterial Blood HCO3 37.4 mmol/L (22.0-26.0) Arterial Blood Oxygen Saturation 90.4 % (95-100) Arterial Blood Base Excess 12.6 (-2-2) Jeremiah Test Positive White Blood Count 15.4 K/UL (4.8-10.8) Red Blood Count 3.59 M/UL (4.20-5.40) Hemoglobin 10.5 G/DL (12.0-16.0) Hematocrit 32.4 % (37.0-47.0) Mean Corpuscular Volume 90 FL (80-99) Mean Corpuscular Hemoglobin 29.3 PG (27.0-31.0) Mean Corpuscular Hemoglobin Concent 32.5 G/DL (32.0-36.0) Red Cell Distribution Width 15.5 % (11.6-14.8) Platelet Count 247 K/UL (150-450) Mean Platelet Volume 8.1 FL (6.5-10.1) Neutrophils (%) (Auto) % (45.0-75.0) Lymphocytes (%) (Auto) % (20.0-45.0) Monocytes (%) (Auto) % (1.0-10.0) Eosinophils (%) (Auto) % (0.0-3.0) Basophils (%) (Auto) % (0.0-2.0) Differential Total Cells Counted 100 Neutrophils % (Manual) 88 % (45-75) Lymphocytes % (Manual) 9 % (20-45) Monocytes % (Manual) 2 % (1-10) Eosinophils % (Manual) 1 % (0-3) Basophils % (Manual) 0 % (0-2) Band Neutrophils 0 % (0-8) Platelet Estimate Adequate Platelet Morphology Normal Hypochromasia 1+ Sodium Level 140 MMOL/L (136-145) Potassium Level 3.8 MMOL/L (3.5-5.1) Chloride Level 96 MMOL/L (98-107) Carbon Dioxide Level 36 MMOL/L (21-32) Anion Gap 8 mmol/L (5-15) Blood Urea Nitrogen 55 mg/dL (7-18) Creatinine 3.5 MG/DL (0.55-1.30) Estimat Glomerular Filtration Rate 13.9 mL/min (>60) Glucose Level 177 MG/DL (74-106) Calcium Level 9.5 MG/DL (8.5-10.1) POC Whole Blood Glucose 246 MG/DL (74-106) Test 06/14/20 00:28 06/14/20 03:30 POC Whole Blood Glucose 148 MG/DL (74-106) White Blood Count 11.1 K/UL (4.8-10.8) Red Blood Count 3.30 M/UL (4.20-5.40) Hemoglobin 9.7 G/DL (12.0-16.0) Hematocrit 30.5 % (37.0-47.0) Mean Corpuscular Volume 92 FL (80-99) Mean Corpuscular Hemoglobin 29.4 PG (27.0-31.0) Mean Corpuscular Hemoglobin Concent 31.8 G/DL (32.0-36.0) Red Cell Distribution Width 15.3 % (11.6-14.8) Platelet Count 205 K/UL (150-450) Mean Platelet Volume 8.2 FL (6.5-10.1) Neutrophils (%) (Auto) % (45.0-75.0) Lymphocytes (%) (Auto) % (20.0-45.0) Monocytes (%) (Auto) % (1.0-10.0) Eosinophils (%) (Auto) % (0.0-3.0) Basophils (%) (Auto) % (0.0-2.0) Sodium Level 144 MMOL/L (136-145) Potassium Level 3.1 MMOL/L (3.5-5.1) Chloride Level 102 MMOL/L (98-107) Carbon Dioxide Level 37 MMOL/L (21-32) Anion Gap 5 mmol/L (5-15) Blood Urea Nitrogen 53 mg/dL (7-18) Creatinine 1.4 MG/DL (0.55-1.30) Estimat Glomerular Filtration Rate 40.0 mL/min (>60) Glucose Level 155 MG/DL (74-106) Uric Acid 3.6 MG/DL (2.6-7.2) Calcium Level 9.1 MG/DL (8.5-10.1) Phosphorus Level 3.9 MG/DL (2.5-4.9) Magnesium Level 2.6 MG/DL (1.8-2.4) Iron Level 36 ug/dL (50-175) Total Iron Binding Capacity 171 ug/dL (250-450) Percent Iron Saturation 21 % (15-50) Unsaturated Iron Binding 135 ug/dL (112-346) Ferritin 1547 NG/ML (8-388) Total Bilirubin 0.6 MG/DL (0.2-1.0) Aspartate Amino Transf (AST/SGOT) 29 U/L (15-37) Alanine Aminotransferase (ALT/SGPT) 23 U/L (12-78) Alkaline Phosphatase 41 U/L (46-116) C-Reactive Protein, Quantitative 9.0 mg/dL (0.00-0.90) Pro-B-Type Natriuretic Peptide 812 pg/mL (0-125) Total Protein 6.6 G/DL (6.4-8.2) Albumin 2.0 G/DL (3.4-5.0) Globulin 4.6 g/dL Albumin/Globulin Ratio 0.4 (1.0-2.7) Triglycerides Level 240 MG/DL (30-150) Cholesterol Level 250 MG/DL (< 200) LDL Cholesterol 169 mg/dL (<100) HDL Cholesterol 27 MG/DL (40-60) Cholesterol/HDL Ratio 9.3 (3.3-4.4) Vitamin B12 Level 621 PG/ML (193-986) Folate 13.0 NG/ML (8.6-58.9) Height (Feet): 5 Height (Inches): 5.00 Weight (Pounds): 308 Objective GeNL: nv Pulm: vent++ CV: rrr Abd: soft, nt, nd Ext: no cce Myron Condon MD Jun 14, 2020 07:36
[2020-06-14] MEDS: Docusate 100mg/10ml Liq GT SCH ×2 (08:20→20:40)
[2020-06-14] MEDS: Piperacillin/Tazobactam 3.375 GM in NS 110 ML IVPB SCH ×2 (08:21→21:59)
[2020-06-14] MEDS: Solu-MEDROL 40mg Inj IVP SCH (08:22)
[2020-06-14] MEDS: Pantoprazole Inj IVP SCH ×2 (08:22→20:40)
[2020-06-14] MEDS: Acetaminophen 650mg/20.3ml NG PRN ×4 (08:23→23:12)
[2020-06-14] MEDS: Enoxaparin 40mg Inj SUBQ SCH (08:24)
--- NOTE | 2020-06-14 10:07 | General Progress Note ---
Subjective Constitutional: Reports: weakness Allergies: Coded Allergies: No Known Allergies (Unverified , 05/28/20) All Systems: reviewed and negative except above Subjective intubated sedatde in icu Objective Last 24 Hour Vital Signs Date Time Temp Pulse Resp B/P (MAP) Pulse Ox O2 Delivery O2 Flow Rate FiO2 06/14/20 09:00 111 17 112/66 (81) 97 06/14/20 08:53 100.2 06/14/20 08:00 113 06/14/20 08:00 70 06/14/20 08:00 107 16 96/61 (73) 96 06/14/20 07:00 27 94/56 Mechanical Ventilator 70 06/14/20 07:00 27 Mechanical Ventilator 70 06/14/20 07:00 102 27 94/56 (69) 97 06/14/20 06:30 100 15 06/14/20 06:00 15 95/57 Mechanical Ventilator 70 06/14/20 06:00 15 Mechanical Ventilator 70 06/14/20 06:00 100 15 95/57 (70) 97 06/14/20 05:00 16 96/60 Mechanical Ventilator 70 06/14/20 05:00 16 Mechanical Ventilator 70 06/14/20 05:00 102 16 96/60 (72) 94 06/14/20 04:45 15 Mechanical Ventilator 70 06/14/20 04:30 15 Mechanical Ventilator 70 06/14/20 04:15 15 Mechanical Ventilator 70 06/14/20 04:00 100.1 104 15 96/64 (75) 97 06/14/20 04:00 70 06/14/20 04:00 100 06/14/20 04:00 15 96/64 Mechanical Ventilator 70 06/14/20 04:00 15 Mechanical Ventilator 70 06/14/20 04:00 Mechanical Ventilator Mechanical Ventilator 06/14/20 03:00 101 15 92/64 (73) 97 06/14/20 03:00 15 92/64 70 06/14/20 03:00 15 Mechanical Ventilator 70 06/14/20 02:00 20 100/68 Mechanical Ventilator 70 06/14/20 02:00 20 Mechanical Ventilator 70 06/14/20 02:00 105 20 100/68 (79) 100 06/14/20 01:45 15 Mechanical Ventilator 70 06/14/20 01:30 15 Mechanical Ventilator 70 06/14/20 01:15 15 Mechanical Ventilator 70 06/14/20 01:00 102 15 98/64 (75) 97 06/14/20 01:00 15 98/64 Mechanical Ventilator 70 06/14/20 01:00 15 Mechanical Ventilator 70 06/14/20 00:00 100.5 98 15 97/62 (74) 97 06/14/20 00:00 Mechanical Ventilator Mechanical Ventilator 06/14/20 00:00 15 97/62 Mechanical Ventilator 70 06/14/20 00:00 15 Mechanical Ventilator 70 06/13/20 23:40 100.5 06/13/20 23:00 102 15 98/64 (75) 96 06/13/20 23:00 15 98/64 Mechanical Ventilator 70 06/13/20 23:00 15 Mechanical Ventilator 70 06/13/20 22:00 108 16 106/70 (82) 96 06/13/20 22:00 16 106/70 Mechanical Ventilator 70 06/13/20 22:00 16 Mechanical Ventilator 70 06/13/20 21:00 112 18 106/70 (82) 95 06/13/20 21:00 18 106/70 Mechanical Ventilator 70 06/13/20 21:00 18 Mechanical Ventilator 70 06/13/20 20:00 70 06/13/20 20:00 100.9 109 19 99/71 (80) 97 06/13/20 20:00 19 99/71 Mechanical Ventilator 70 06/13/20 20:00 19 Mechanical Ventilator 70 06/13/20 20:00 Mechanical Ventilator Mechanical Ventilator 06/13/20 20:00 107 06/13/20 19:50 105 18 80 06/13/20 19:00 111 19 106/68 (81) 96 06/13/20 19:00 19 106/68 Mechanical Ventilator 70 06/13/20 19:00 19 Mechanical Ventilator 70 06/13/20 18:30 110 18 102/64 (77) 96 06/13/20 18:00 116 21 104/63 (77) 93 06/13/20 18:00 18 104/63 Mechanical Ventilator 70 06/13/20 18:00 18 Mechanical Ventilator 70 06/13/20 17:30 110 19 104/55 (71) 91 06/13/20 17:00 110 18 108/63 (78) 92 06/13/20 17:00 19 108/63 Mechanical Ventilator 70 06/13/20 17:00 19 Mechanical Ventilator 70 06/13/20 16:30 110 19 105/58 (74) 93 06/13/20 16:00 100.9 108 18 94/53 (67) 95 06/13/20 16:00 109 06/13/20 16:00 70 06/13/20 16:00 19 94/53 Mechanical Ventilator 70 06/13/20 16:00 19 Mechanical Ventilator 70 06/13/20 16:00 Mechanical Ventilator Mechanical Ventilator 06/13/20 15:32 115 25 80 06/13/20 15:30 108 20 93/52 (66) 95 06/13/20 15:00 23 101/53 Mechanical Ventilator 70 06/13/20 15:00 23 Mechanical Ventilator 70 06/13/20 15:00 112 20 106/62 (77) 94 06/13/20 14:00 110 19 107/55 (72) 96 06/13/20 14:00 21 112/65 Mechanical Ventilator 70 06/13/20 14:00 21 Mechanical Ventilator 70 06/13/20 13:30 102.7 06/13/20 13:00 110 19 94/57 (69) 94 06/13/20 13:00 15 109/64 Mechanical Ventilator 70 06/13/20 13:00 15 Mechanical Ventilator 70 06/13/20 12:18 22 Mechanical Ventilator 70 06/13/20 12:00 70 06/13/20 12:00 Mechanical Ventilator Mechanical Ventilator 06/13/20 12:00 15 105/67 Mechanical Ventilator 70 06/13/20 12:00 15 Mechanical Ventilator 70 06/13/20 12:00 118 14 136/71 (92) 94 06/13/20 12:00 127 06/13/20 11:25 117 20 80 06/13/20 11:00 22 103/60 Mechanical Ventilator 70 06/13/20 11:00 22 Mechanical Ventilator 70 06/13/20 11:00 114 20 103/60 (74) 95 Intake and Output0 06/13/20 06/14/20 19:00 07:00 Intake Total 1328.31532 ml 1661 ml Output Total 2050 ml 1905 ml Balance -721.87408 ml -244 ml Free Water 325 ml 180 ml IV Total 253.15423 ml 761 ml Tube Feeding 720 ml 720 ml Other 30 ml Output Urine Total 2050 ml 1905 ml Laboratory Tests 06/13/20 12:21: POC Whole Blood Glucose 246H 06/14/20 00:28: POC Whole Blood Glucose 148H 06/14/20 03:30: White Blood Count 11.1H, Red Blood Count 3.30L, Hemoglobin 9.7L, Hematocrit 30.5L, Mean Corpuscular Volume 92, Mean Corpuscular Hemoglobin 29.4, Mean Corpuscular Hemoglobin Concent 31.8L, Red Cell Distribution Width 15.3H, Marlene telet Count 205, Mean Platelet Volume 8.2, Neutrophils (%) (Auto) , Lymphocytes (%) (Auto) , Monocytes (%) (Auto) , Eosinophils (%) (Auto) , Basophils (%) (Auto) , Differential Total Cells Counted 100, Neutrophils % (Manual) 89H, Lymphocytes % (Manual) 8L, Monocytes % (Manual) 2, Eosinophils % (Manual) 1, Basophils % (Manual) 0, Band Neutrophils 0, Platelet Estimate Adequate, Platelet Morphology Normal, Anisocytosis 1+, Sodium Level 144, Potassium Level 3.1L, Chloride Level 102, Carbon Dioxide Level 37H, Anion Gap 5, Blood Urea Nitrogen 53H, Creatinine 1.4#H, Estimat Glomerular Filtration Rate 40.0, Glucose Level 155H, Hemoglobin A1c 7.8H, Uric Acid 3.6, Calcium Level 9.1, Phosphorus Level 3.9, Magnesium Level 2.6H, Iron Level 36L, Total Iron Binding Capacity 171L, Percent Iron Saturation 21, Unsaturated Iron Binding 135, Ferritin 1547H, Total Bilirubin 0.6, Aspartate Amino Transf (AST/SGOT) 29, Alanine Aminotransferase (ALT/SGPT) 23, Alkaline Phosphatase 41L, C-Reactive Protein, Quantitative 9.0H, Pro-B-Type Natriuretic Peptide 812H, Total Protein 6.6, Albumin 2.0L, Globulin 4.6, Albumin/Globulin Ratio 0.4L, Triglycerides Level 240H, Cholesterol Level 250H, LDL Cholesterol 169H, HDL Cholesterol 27L, Cholesterol/HDL Ratio 9.3H, Vitamin B12 Level 621, Vitamin D 25-Hydroxy [Pending], 25-Hydroxy Vitamin D2 [Pending], 25-Hydroxy Vitamin D3 [Pending], Folate 13.0 Height (Feet): 5 Height (Inches): 5.00 Weight (Pounds): 308 General Appearance: lethargic EENT: normal ENT inspection Neck: normal alignment Cardiovascular: normal peripheral pulses, normal rate, regular rhythm Respiratory/Chest: chest wall non-tender, lungs clear, normal breath sounds Abdomen: normal bowel sounds, non tender, soft Extremities: normal inspection Edema: no edema noted Arm (L), no edema noted Arm (R), no edema noted Leg (L), no edema noted Leg (R), no edema noted Pedal (L), no edema noted Pedal (R), no edema noted Generalized Neurologic: motor weakness Skin: normal pigmentation, warm/dry Assessment/Plan Problem List: (1) Hypoxia ICD Codes: R09.02 - Hypoxemia SNOMED: 295015817 (2) Respiratory failure ICD Codes: J96.90 - Respiratory failure, unspecified, unspecified whether with hypoxia or hypercapnia SNOMED: 230641964 (3) Respiratory distress ICD Codes: R06.03 - Acute respiratory distress; J12.82 - Pneumonia due to coronavirus disease 2019 SNOMED: 872024655 (4) Pneumonia due to COVID-19 virus ICD Codes: U07.1 - COVID-19; J12.82 - Pneumonia due to coronavirus disease 2019 SNOMED: 124161620093324168 Status: unchanged Assessment/Plan: vent abx id pulm f/u cbc bmp am Tank Del Cid DO Jun 14, 2020 10:07
[2020-06-14] MEDS: Midazolam HCl 50mg/10ml vial 100 MG in NS 180 ML IV PRN (10:20)
--- NOTE | 2020-06-14 10:38 | NUR ---
NURSE NOTES: Noted KCL 20mEq IVPB ordered for the pt. Medication given.
--- NOTE | 2020-06-14 10:41 | NUR ---
NURSE NOTES: Pt given tylenol this morning. Temp now 102.3 and trending up. Ice reapplied. Cooling measures continued.
--- NOTE | 2020-06-14 10:47 | NUR ---
RESPIRATORY NOTE: PEEP titrated from +10 to +8 per MD.
--- NOTE | 2020-06-14 10:52 | NUR ---
RD ASSESSMENT & RECOMMENDATIONS SEE CARE ACTIVITY FOR COMPLETE ASSESSMENT DAILY ESTIMATED NEEDS: Needs based on Critical care, obesity 11-14kcal/kg actual body wt (140kg) kcals/kg 1472-0194 total kcals 1.5-2.0g prot/kg IBW (64.5kg) g protein/kg 96-129 g total protein 25-30ml/kg abw (83kg) mL/kg 5100-8580 total fluid mLs NUTRITION DIAGNOSIS: Swallowing difficulty R/T respiratory failure as evidenced by pt orally intubated and sedated, on OGT feeds. CURRENT TF: Vital 1.2 goal of 60ml/hr ENTERAL NUTRITION RECOMMENDATIONS: Vital AF 1.2 @ 60ml/hr x 24 hrs to provide 1440ml, 1728kcal, 108g prot, 1168ml free water * Maintain current critical care and carb controlled TF formula of Vital AF * TF @ goal meeds 100% est kcal/prot needs * HOB over 30 degrees/ water flush per MD TF may be lowered to 55ml/hr for improved BG control while maintaining Kcal and pro needs. ADDITIONAL RECOMMENDATIONS: * Calibrated bedscale wt * Monitor Propofol rate, need for TF adjustment-> now off * Monitor BGs closely : now improved, on novolog q 6rs + NISS * Monitor lytes * Rec bowel regimen- now added . .
--- NOTE | 2020-06-14 10:59 | Surgery Progress Note ---
Surgery Progress Note Subjective Additional Comments febrile fi02 60% peep 10 sat 94% Objective Last 24 Hour Vital Signs Date Time Temp Pulse Resp B/P (MAP) Pulse Ox O2 Delivery O2 Flow Rate FiO2 06/14/20 10:20 18 Mechanical Ventilator 60 06/14/20 09:00 111 17 112/66 (81) 97 06/14/20 08:53 100.2 06/14/20 08:00 113 06/14/20 08:00 70 06/14/20 08:00 107 16 96/61 (73) 96 06/14/20 07:00 27 94/56 Mechanical Ventilator 70 06/14/20 07:00 27 Mechanical Ventilator 70 06/14/20 07:00 102 27 94/56 (69) 97 06/14/20 06:30 100 15 06/14/20 06:00 15 95/57 Mechanical Ventilator 70 06/14/20 06:00 15 Mechanical Ventilator 70 06/14/20 06:00 100 15 95/57 (70) 97 06/14/20 05:00 16 96/60 Mechanical Ventilator 70 06/14/20 05:00 16 Mechanical Ventilator 70 06/14/20 05:00 102 16 96/60 (72) 94 06/14/20 04:45 15 Mechanical Ventilator 70 06/14/20 04:30 15 Mechanical Ventilator 70 06/14/20 04:15 15 Mechanical Ventilator 70 06/14/20 04:00 100.1 104 15 96/64 (75) 97 06/14/20 04:00 70 06/14/20 04:00 100 06/14/20 04:00 15 96/64 Mechanical Ventilator 70 06/14/20 04:00 15 Mechanical Ventilator 70 06/14/20 04:00 Mechanical Ventilator Mechanical Ventilator 06/14/20 03:00 101 15 92/64 (73) 97 06/14/20 03:00 15 92/64 70 06/14/20 03:00 15 Mechanical Ventilator 70 06/14/20 02:00 20 100/68 Mechanical Ventilator 70 06/14/20 02:00 20 Mechanical Ventilator 70 06/14/20 02:00 105 20 100/68 (79) 100 06/14/20 01:45 15 Mechanical Ventilator 70 06/14/20 01:30 15 Mechanical Ventilator 70 06/14/20 01:15 15 Mechanical Ventilator 70 06/14/20 01:00 102 15 98/64 (75) 97 06/14/20 01:00 15 98/64 Mechanical Ventilator 70 06/14/20 01:00 15 Mechanical Ventilator 70 06/14/20 00:00 100.5 98 15 97/62 (74) 97 06/14/20 00:00 Mechanical Ventilator Mechanical Ventilator 06/14/20 00:00 15 97/62 Mechanical Ventilator 70 06/14/20 00:00 15 Mechanical Ventilator 70 06/13/20 23:40 100.5 06/13/20 23:00 102 15 98/64 (75) 96 06/13/20 23:00 15 98/64 Mechanical Ventilator 70 06/13/20 23:00 15 Mechanical Ventilator 70 06/13/20 22:00 108 16 106/70 (82) 96 06/13/20 22:00 16 106/70 Mechanical Ventilator 70 06/13/20 22:00 16 Mechanical Ventilator 70 06/13/20 21:00 112 18 106/70 (82) 95 06/13/20 21:00 18 106/70 Mechanical Ventilator 70 06/13/20 21:00 18 Mechanical Ventilator 70 06/13/20 20:00 70 06/13/20 20:00 100.9 109 19 99/71 (80) 97 06/13/20 20:00 19 99/71 Mechanical Ventilator 70 06/13/20 20:00 19 Mechanical Ventilator 70 06/13/20 20:00 Mechanical Ventilator Mechanical Ventilator 06/13/20 20:00 107 06/13/20 19:50 105 18 80 06/13/20 19:00 111 19 106/68 (81) 96 06/13/20 19:00 19 106/68 Mechanical Ventilator 70 06/13/20 19:00 19 Mechanical Ventilator 70 06/13/20 18:30 110 18 102/64 (77) 96 06/13/20 18:00 116 21 104/63 (77) 93 06/13/20 18:00 18 104/63 Mechanical Ventilator 70 06/13/20 18:00 18 Mechanical Ventilator 70 06/13/20 17:30 110 19 104/55 (71) 91 06/13/20 17:00 110 18 108/63 (78) 92 06/13/20 17:00 19 108/63 Mechanical Ventilator 70 06/13/20 17:00 19 Mechanical Ventilator 70 06/13/20 16:30 110 19 105/58 (74) 93 06/13/20 16:00 100.9 108 18 94/53 (67) 95 06/13/20 16:00 109 06/13/20 16:00 70 06/13/20 16:00 19 94/53 Mechanical Ventilator 70 06/13/20 16:00 19 Mechanical Ventilator 70 06/13/20 16:00 Mechanical Ventilator Mechanical Ventilator 06/13/20 15:32 115 25 80 06/13/20 15:30 108 20 93/52 (66) 95 06/13/20 15:00 23 101/53 Mechanical Ventilator 70 06/13/20 15:00 23 Mechanical Ventilator 70 06/13/20 15:00 112 20 106/62 (77) 94 06/13/20 14:00 110 19 107/55 (72) 96 06/13/20 14:00 21 112/65 Mechanical Ventilator 70 06/13/20 14:00 21 Mechanical Ventilator 70 06/13/20 13:30 102.7 06/13/20 13:00 110 19 94/57 (69) 94 06/13/20 13:00 15 109/64 Mechanical Ventilator 70 06/13/20 13:00 15 Mechanical Ventilator 70 06/13/20 12:18 22 Mechanical Ventilator 70 06/13/20 12:00 70 06/13/20 12:00 Mechanical Ventilator Mechanical Ventilator 06/13/20 12:00 15 105/67 Mechanical Ventilator 70 06/13/20 12:00 15 Mechanical Ventilator 70 06/13/20 12:00 118 14 136/71 (92) 94 06/13/20 12:00 127 06/13/20 11:25 117 20 80 06/13/20 11:00 22 103/60 Mechanical Ventilator 70 06/13/20 11:00 22 Mechanical Ventilator 70 06/13/20 11:00 114 20 103/60 (74) 95 I&O Intake and Output 06/13/20 06/14/20 19:00 07:00 Intake Total 1328.88362 ml 1661 ml Output Total 2050 ml 1905 ml Balance -721.52403 ml -244 ml Free Water 325 ml 180 ml IV Total 253.81589 ml 761 ml Tube Feeding 720 ml 720 ml Other 30 ml Output Urine Total 2050 ml 1905 ml Dressing: saturated Cardiovascular: RSR Respiratory: decreased breath sounds Abdomen: soft, non-tender, present bowel sounds, non-distended Extremities: edema, no tenderness, no cyanosis Laboratory Tests Test 06/13/20 12:21 06/14/20 00:28 06/14/20 03:30 POC Whole Blood Glucose 246 MG/DL (74-106) H 148 MG/DL (74-106) H White Blood Count 11.1 K/UL (4.8-10.8) H Red Blood Count 3.30 M/UL (4.20-5.40) L Hemoglobin 9.7 G/DL (12.0-16.0) L Hematocrit 30.5 % (37.0-47.0) L Mean Corpuscular Volume 92 FL (80-99) Mean Corpuscular Hemoglobin 29.4 PG (27.0-31.0) Mean Corpuscular Hemoglobin Concent 31.8 G/DL (32.0-36.0) L Red Cell Distribution Width 15.3 % (11.6-14.8) H Platelet Count 205 K/UL (150-450) Mean Platelet Volume 8.2 FL (6.5-10.1) Neutrophils (%) (Auto) % (45.0-75.0) Lymphocytes (%) (Auto) % (20.0-45.0) Monocytes (%) (Auto) % (1.0-10.0) Eosinophils (%) (Auto) % (0.0-3.0) Basophils (%) (Auto) % (0.0-2.0) Differential Total Cells Counted 100 Neutrophils % (Manual) 89 % (45-75) H Lymphocytes % (Manual) 8 % (20-45) L Monocytes % (Manual) 2 % (1-10) Eosinophils % (Manual) 1 % (0-3) Basophils % (Manual) 0 % (0-2) Band Neutrophils 0 % (0-8) Platelet Estimate Adequate Platelet Morphology Normal Anisocytosis 1+ Sodium Level 144 MMOL/L (136-145) Potassium Level 3.1 MMOL/L (3.5-5.1) L Chloride Level 102 MMOL/L (98-107) Carbon Dioxide Level 37 MMOL/L (21-32) H Anion Gap 5 mmol/L (5-15) Blood Urea Nitrogen 53 mg/dL (7-18) H Creatinine 1.4 MG/DL (0.55-1.30) #H Estimat Glomerular Filtration Rate 40.0 mL/min (>60) Glucose Level 155 MG/DL (74-106) H Hemoglobin A1c 7.8 % (4.3-6.0) H Uric Acid 3.6 MG/DL (2.6-7.2) Calcium Level 9.1 MG/DL (8.5-10.1) Phosphorus Level 3.9 MG/DL (2.5-4.9) Magnesium Level 2.6 MG/DL (1.8-2.4) H Iron Level 36 ug/dL (50-175) L Total Iron Binding Capacity 171 ug/dL (250-450) L Percent Iron Saturation 21 % (15-50) Unsaturated Iron Binding 135 ug/dL (112-346) Ferritin 1547 NG/ML (8-388) H Total Bilirubin 0.6 MG/DL (0.2-1.0) Aspartate Amino Transf (AST/SGOT) 29 U/L (15-37) Alanine Aminotransferase (ALT/SGPT) 23 U/L (12-78) Alkaline Phosphatase 41 U/L (46-116) L C-Reactive Protein, Quantitative 9.0 mg/dL (0.00-0.90) H Pro-B-Type Natriuretic Peptide 812 pg/mL (0-125) H Total Protein 6.6 G/DL (6.4-8.2) Albumin 2.0 G/DL (3.4-5.0) L Globulin 4.6 g/dL Albumin/Globulin Ratio 0.4 (1.0-2.7) L Triglycerides Level 240 MG/DL (30-150) H Cholesterol Level 250 MG/DL (< 200) H LDL Cholesterol 169 mg/dL (<100) H HDL Cholesterol 27 MG/DL (40-60) L Cholesterol/HDL Ratio 9.3 (3.3-4.4) H Vitamin B12 Level 621 PG/ML (193-986) Vitamin D 25-Hydroxy Pending 25-Hydroxy Vitamin D2 Pending 25-Hydroxy Vitamin D3 Pending Folate 13.0 NG/ML (8.6-58.9) Plan Problems: (1) Respiratory distress (2) Respiratory failure Assessment & Plan: 50-year-old female Covid positive respiratory insufficiency intubated on ventilatory support declining. Leukocytosis increase oxygen requirement. Vent settings per pulmonology reviewed identified and agree. Unfortunately further surgical invention at this time is not appropriate as patient is not a candidate and her current condition. Prognosis overall guarded. Tracheostomy can be considered in the future if recovering or shows improvement and requires unable to be weaned from ventilator support. Currently okay for nutritional optimization with NG tube. Will need significant monitoring for decubitus formation given patient's size and condition. Okay for air mattress tolerated. Turn every 2 hours as tolerated. Patient is otherwise critically ill and blood pressure labile. Will need to monitor closely.Bilateral infiltrates are again demonstrated. Stable tube and line positions. (3) Hypoxia (4) Pneumonia due to COVID-19 virus Assessment & Plan: ++ as per pulm and ID (5) Diabetes mellitus out of control Assessment & Plan: DAILY ESTIMATED NEEDS: Needs based on Critical care, obesity 11-14kcal/kg actual body wt (140kg) kcals/kg 9275-8673 total kcals 1.5-2.0g prot/kg IBW (64.5kg) g protein/kg 96-129 g total protein 25-30ml/kg abw (83kg) mL/kg 3528-8297 total fluid mLs NUTRITION DIAGNOSIS: Swallowing difficulty R/T respiratory failure as evidenced by pt orally intubated and sedated, on OGT feeds. CURRENT TF: Vital 1.2 goal of 60ml/hr ENTERAL NUTRITION RECOMMENDATIONS: Vital AF 1.2 @ 60ml/hr x 24 hrs to provide 1440ml, 1728kcal, 108g prot, 1168ml free water * Maintain current critical care and carb controlled TF formula of Vital AF * TF @ goal meeds 100% est kcal/prot needs * HOB over 30 degrees/ water flush per MD TF may be lowered to 55ml/hr for improved BG control while maintaining Kcal and pro needs. ADDITIONAL RECOMMENDATIONS: * Calibrated bedscale wt * Monitor Propofol rate, need for TF adjustment-> now off * Monitor BGs closely : now improved, on novolog q 6rs + NISS * Monitor lytes * Rec bowel regimen- now added Az Devine Jun 14, 2020 10:59
--- NOTE | 2020-06-14 11:18 | Pulmonology Progress Note ---
Subjective ROS Limited/Unobtainable: Yes Interval Events: Remains intubated Constitutional: Reports: fever, other - T=[id number] HEENT: Repors: no symptoms Respiratory: Reports: no symptoms Cardiovascular: Reports: no symptoms Gastrointestinal/Abdominal: Reports: no symptoms Genitourinary: Reports: no symptoms Allergies: Coded Allergies: No Known Allergies (Unverified , 05/28/20) All Systems: reviewed and negative except above Objective Last 24 Hour Vital Signs Date Time Temp Pulse Resp B/P (MAP) Pulse Ox O2 Delivery O2 Flow Rate FiO2 06/14/20 10:20 18 Mechanical Ventilator 60 06/14/20 09:00 111 17 112/66 (81) 97 06/14/20 08:53 100.2 06/14/20 08:00 113 06/14/20 08:00 70 06/14/20 08:00 107 16 96/61 (73) 96 06/14/20 07:00 27 94/56 Mechanical Ventilator 70 06/14/20 07:00 27 Mechanical Ventilator 70 06/14/20 07:00 102 27 94/56 (69) 97 06/14/20 06:30 100 15 06/14/20 06:00 15 95/57 Mechanical Ventilator 70 06/14/20 06:00 15 Mechanical Ventilator 70 06/14/20 06:00 100 15 95/57 (70) 97 06/14/20 05:00 16 96/60 Mechanical Ventilator 70 06/14/20 05:00 16 Mechanical Ventilator 70 06/14/20 05:00 102 16 96/60 (72) 94 06/14/20 04:45 15 Mechanical Ventilator 70 06/14/20 04:30 15 Mechanical Ventilator 70 06/14/20 04:15 15 Mechanical Ventilator 70 06/14/20 04:00 100.1 104 15 96/64 (75) 97 06/14/20 04:00 70 06/14/20 04:00 100 06/14/20 04:00 15 96/64 Mechanical Ventilator 70 06/14/20 04:00 15 Mechanical Ventilator 70 06/14/20 04:00 Mechanical Ventilator Mechanical Ventilator 06/14/20 03:00 101 15 92/64 (73) 97 06/14/20 03:00 15 92/64 70 06/14/20 03:00 15 Mechanical Ventilator 70 06/14/20 02:00 20 100/68 Mechanical Ventilator 70 06/14/20 02:00 20 Mechanical Ventilator 70 06/14/20 02:00 105 20 100/68 (79) 100 06/14/20 01:45 15 Mechanical Ventilator 70 06/14/20 01:30 15 Mechanical Ventilator 70 06/14/20 01:15 15 Mechanical Ventilator 70 06/14/20 01:00 102 15 98/64 (75) 97 06/14/20 01:00 15 98/64 Mechanical Ventilator 70 06/14/20 01:00 15 Mechanical Ventilator 70 06/14/20 00:00 100.5 98 15 97/62 (74) 97 06/14/20 00:00 Mechanical Ventilator Mechanical Ventilator 06/14/20 00:00 15 97/62 Mechanical Ventilator 70 06/14/20 00:00 15 Mechanical Ventilator 70 06/13/20 23:40 100.5 06/13/20 23:00 102 15 98/64 (75) 96 06/13/20 23:00 15 98/64 Mechanical Ventilator 70 06/13/20 23:00 15 Mechanical Ventilator 70 06/13/20 22:00 108 16 106/70 (82) 96 06/13/20 22:00 16 106/70 Mechanical Ventilator 70 06/13/20 22:00 16 Mechanical Ventilator 70 06/13/20 21:00 112 18 106/70 (82) 95 06/13/20 21:00 18 106/70 Mechanical Ventilator 70 06/13/20 21:00 18 Mechanical Ventilator 70 06/13/20 20:00 70 06/13/20 20:00 100.9 109 19 99/71 (80) 97 06/13/20 20:00 19 99/71 Mechanical Ventilator 70 06/13/20 20:00 19 Mechanical Ventilator 70 06/13/20 20:00 Mechanical Ventilator Mechanical Ventilator 06/13/20 20:00 107 06/13/20 19:50 105 18 80 06/13/20 19:00 111 19 106/68 (81) 96 06/13/20 19:00 19 106/68 Mechanical Ventilator 70 06/13/20 19:00 19 Mechanical Ventilator 70 06/13/20 18:30 110 18 102/64 (77) 96 06/13/20 18:00 116 21 104/63 (77) 93 06/13/20 18:00 18 104/63 Mechanical Ventilator 70 06/13/20 18:00 18 Mechanical Ventilator 70 06/13/20 17:30 110 19 104/55 (71) 91 06/13/20 17:00 110 18 108/63 (78) 92 06/13/20 17:00 19 108/63 Mechanical Ventilator 70 06/13/20 17:00 19 Mechanical Ventilator 70 06/13/20 16:30 110 19 105/58 (74) 93 06/13/20 16:00 100.9 108 18 94/53 (67) 95 06/13/20 16:00 109 06/13/20 16:00 70 06/13/20 16:00 19 94/53 Mechanical Ventilator 70 06/13/20 16:00 19 Mechanical Ventilator 70 06/13/20 16:00 Mechanical Ventilator Mechanical Ventilator 06/13/20 15:32 115 25 80 06/13/20 15:30 108 20 93/52 (66) 95 06/13/20 15:00 23 101/53 Mechanical Ventilator 70 06/13/20 15:00 23 Mechanical Ventilator 70 06/13/20 15:00 112 20 106/62 (77) 94 06/13/20 14:00 110 19 107/55 (72) 96 06/13/20 14:00 21 112/65 Mechanical Ventilator 70 06/13/20 14:00 21 Mechanical Ventilator 70 06/13/20 13:30 102.7 06/13/20 13:00 110 19 94/57 (69) 94 06/13/20 13:00 15 109/64 Mechanical Ventilator 70 06/13/20 13:00 15 Mechanical Ventilator 70 06/13/20 12:18 22 Mechanical Ventilator 70 06/13/20 12:00 70 06/13/20 12:00 Mechanical Ventilator Mechanical Ventilator 06/13/20 12:00 15 105/67 Mechanical Ventilator 70 06/13/20 12:00 15 Mechanical Ventilator 70 06/13/20 12:00 118 14 136/71 (92) 94 06/13/20 12:00 127 06/13/20 11:25 117 20 80 Intake and Output 06/13/20 06/14/20 19:00 07:00 Intake Total 1328.10329 ml 1661 ml Output Total 2050 ml 1905 ml Balance -721.13011 ml -244 ml Free Water 325 ml 180 ml IV Total 253.88829 ml 761 ml Tube Feeding 720 ml 720 ml Other 30 ml Output Urine Total 2050 ml 1905 ml General Appearance: no acute distress HEENT: normocephalic Respiratory: chest wall non-tender Cardiovascular: normal peripheral pulses Abdomen: normal bowel sounds Microbiology Date/Time Source Procedure Growth Status 06/11/20 16:15 Sputum Gram Stain - Final Complete 06/11/20 16:15 Sputum Culture - Final Serratia Rubidaea Usual Respiratory Bree Complete 06/11/20 11:23 Blood Blood Culture - Preliminary NO GROWTH AFTER 48 HOURS Resulted Laboratory Tests 06/13/20 12:21: POC Whole Blood Glucose 246H 06/14/20 00:28: POC Whole Blood Glucose 148H 06/14/20 03:30: White Blood Count 11.1H, Red Blood Count 3.30L, Hemoglobin 9.7L, Hematocrit 30.5L, Mean Corpuscular Volume 92, Mean Corpuscular Hemoglobin 29.4, Mean Corpuscular Hemoglobin Concent 31.8L, Red Cell Distribution Width 15.3H, Platelet Count 205, Mean Platelet Volume 8.2, Neutrophils (%) (Auto) , Lymphocytes (%) (Auto) , Monocytes (%) (Auto) , Eosinophils (%) (Auto) , Basophils (%) (Auto) , Differential Total Cells Counted 100, Neutrophils % (Manual) 89H, Lymphocytes % (Manual) 8L, Monocytes % (Manual) 2, Eosinophils % (Manual) 1, Basophils % (Manual) 0, Band Neutrophils 0, Platelet Estimate Adequate, Platelet Morphology Normal, Anisocytosis 1+, Sodium Level 144, Potassium Level 3.1L, Chloride Level 102, Carbon Dioxide Level 37H, Anion Gap 5, Blood Urea Nitrogen 53H, Creatinine 1.4#H, Estimat Glomerular Filtration Rate 40.0, Glucose Level 155H, Hemoglobin A1c 7.8H, Uric Acid 3.6, Calcium Level 9.1, Phosphorus Level 3.9, Magnesium Level 2.6H, Iron Level 36L, Total Iron Binding Capacity 171L, Percent Iron Saturation 21, Unsaturated Iron Binding 135, Ferritin 1547H, Total Bilirubin 0.6, Aspartate Amino Transf (AST/SGOT) 29, A lanine Aminotransferase (ALT/SGPT) 23, Alkaline Phosphatase 41L, C-Reactive Protein, Quantitative 9.0H, Pro-B-Type Natriuretic Peptide 812H, Total Protein 6.6, Albumin 2.0L, Globulin 4.6, Albumin/Globulin Ratio 0.4L, Triglycerides Level 240H, Cholesterol Level 250H, LDL Cholesterol 169H, HDL Cholesterol 27L, Cholesterol/HDL Ratio 9.3H, Vitamin B12 Level 621, Vitamin D 25-Hydroxy [Pending], 25-Hydroxy Vitamin D2 [Pending], 25-Hydroxy Vitamin D3 [Pending], Folate 13.0 Current Medications Medications (Trade) Dose Ordered Sig/Zelda Route PRN Reason Start Time Stop Time Status Last Admin Dose Admin Acetaminophen (Tylenol) 650 mg Q4H PRN NG Temp >100.5 05/31/20 21:45 06/30/20 21:44 06/14/20 08:23 Acetaminophen (Tylenol) 650 mg Q6H PRN NG Mild Pain (Pain Scale 1-3) 06/06/20 18:00 07/06/20 17:59 06/13/20 23:10 Chlorhexidine Gluconate (Inna-Hex 2%) 1 applic DAILY@2000 TOPIC 05/30/20 20:00 08/28/20 19:59 06/13/20 20:06 Dextrose (Dextrose 50%) 25 ml Q30M PRN IV Hypoglycemia 06/05/20 10:45 09/03/20 10:44 Dextrose (Dextrose 50%) 50 ml Q30M PRN IV Hypoglycemia 06/05/20 10:45 09/03/20 10:44 Docusate Sodium (Colace) 100 mg Q12HR GT 06/07/20 21:00 07/07/20 20:59 06/13/20 20:07 Enoxaparin Sodium (Lovenox) 40 mg DAILY SUBQ 05/30/20 10:00 08/28/20 09:59 06/08/20 09:08 Fentanyl Citrate 250 ml @ 1 mls/hr Q24H IV 06/13/20 01:15 06/15/20 01:14 06/14/20 03:00 Insulin Aspart (NovoLOG) EVERY 6 HOURS SUBQ 06/07/20 00:00 09/03/20 11:59 06/14/20 05:39 Insulin Aspart (NovoLOG) 23 units EVERY 6 HOURS SUBQ 06/13/20 12:00 09/04/20 08:59 06/14/20 05:39 Methylprednisolone Sodium Succinate (Solu-MEDROL) 30 mg DAILY IVP 06/11/20 09:00 09/09/20 08:59 06/14/20 08:22 Midazolam HCl 100 mg/Sodium Chloride 200 ml @ 0 mls/hr Q24H PRN IV sedation 06/12/20 16:30 06/14/20 16:29 06/14/20 10:20 Pantoprazole (Protonix) 40 mg Q12HR IVP 06/13/20 21:00 07/03/20 08:59 06/14/20 08:22 Piperacillin Sod/ Tazobactam Sod 3.375 gm/Sodium Chloride 110 ml @ 27.5 mls/hr Q12HR IVPB 06/13/20 21:00 06/14/20 14:00 06/14/20 08:21 Piperacillin Sod/ Tazobactam Sod 3.375 gm/Sodium Chloride 110 ml @ 27.5 mls/hr Q8HR IVPB 06/14/20 22:00 06/21/20 21:59 Polyethylene Glycol (Miralax) 17 gm BEDTIME GT 06/07/20 21:00 07/07/20 20:59 06/13/20 20:07 Sodium Chloride 1,000 ml @ 50 mls/hr Q20H IV 06/06/20 08:00 07/06/20 07:59 06/13/20 19:59 Assessment/Plan Assessment/Plan 1. COVID-19 pneumonia -Intubated 05/28/20 - We will continue broad-spectrum antibiotics. - On solumedrol -On Rocephin -Continue monitoring SaO2 and keep it >92% -Continue PEEP 10; - Peak airway pressures high; approx 73 - FiO2 100% -> 90 ->80->60%; -will continue OGT feeding -Continue sedation -Need to keep patient completely sedated. 2. Hyponatremia -Per primary MD 3. Elevated inflammatory markers - has high D dimer; Lovenox on hold due to hematuria 4. Febrile today Javier Nava MD Jun 14, 2020 11:18
--- NOTE | 2020-06-14 11:38 | NUR ---
RESPIRATORY NOTE: Vt increased from 500 to 600 post ABG result per MD.
--- NOTE | 2020-06-14 12:00 | NUR ---
NURSE NOTE: Pt continues to have high temp. Temp 100.5 at this time. Will continue to apply cooling measures and administer tylenol as ordered. HR remains elevated at 115 in sinus tachycardia. RR remains WNL. Pt tolerating ventilator setting of PEEP 8 and FIO2 60%. Will continue to monitor.
--- NOTE | 2020-06-14 12:08 | Infectious Diseases Prog Note ---
Assessment/Plan Assessment/Plan antibiotics : zosyn A 1. covid 19 pneumonia on 60% Fi O2 with 94 % saturation s/p remdesivir 2. respiratory failure 3. serratia pneumonia P 1. continue zosyn 2. continue solumedrol taper dose 3. continue isolation Subjective ROS Limited/Unobtainable: Yes Allergies: Coded Allergies: No Known Allergies (Unverified , 05/28/20) Objective Last 24 Hour Vital Signs Date Time Temp Pulse Resp B/P (MAP) Pulse Ox O2 Delivery O2 Flow Rate FiO2 06/14/20 11:00 109 17 91/56 (68) 94 06/14/20 10:45 110 17 98/56 (70) 94 06/14/20 10:30 112 18 95/53 (67) 94 06/14/20 10:20 18 Mechanical Ventilator 60 06/14/20 10:15 111 17 95/51 (66) 94 06/14/20 10:00 111 16 92/54 (67) 94 06/14/20 09:45 112 18 92/59 (70) 93 06/14/20 09:30 116 15 94/59 (71) 99 06/14/20 09:15 118 22 112/66 (81) 85 06/14/20 09:00 113 18 106/60 (75) 95 06/14/20 09:00 111 17 112/66 (81) 97 06/14/20 08:53 100.2 06/14/20 08:45 111 18 93/54 (67) 96 06/14/20 08:30 107 16 98/59 (72) 97 06/14/20 08:15 98.2 107 16 99/61 (74) 97 06/14/20 08:00 108 17 98/59 (72) 96 06/14/20 08:00 113 06/14/20 08:00 70 06/14/20 08:00 Mechanical Ventilator Mechanical Ventilator 06/14/20 08:00 107 16 96/61 (73) 96 06/14/20 07:45 108 17 98/58 (71) 96 06/14/20 07:30 104 17 100/58 (72) 97 06/14/20 07:15 105 16 92/57 (69) 97 06/14/20 07:00 27 94/56 Mechanical Ventilator 70 06/14/20 07:00 27 Mechanical Ventilator 70 06/14/20 07:00 102 27 94/56 (69) 97 06/14/20 07:00 102 27 94/56 (69) 97 06/14/20 06:30 100 15 06/14/20 06:00 15 95/57 Mechanical Ventilator 70 06/14/20 06:00 15 Mechanical Ventilator 70 06/14/20 06:00 100 15 95/57 (70) 97 06/14/20 05:00 16 96/60 Mechanical Ventilator 70 06/14/20 05:00 16 Mechanical Ventilator 70 06/14/20 05:00 102 16 96/60 (72) 94 06/14/20 04:45 15 Mechanical Ventilator 70 06/14/20 04:30 15 Mechanical Ventilator 70 06/14/20 04:15 15 Mechanical Ventilator 70 06/14/20 04:00 100.1 104 15 96/64 (75) 97 06/14/20 04:00 70 06/14/20 04:00 100 06/14/20 04:00 15 96/64 Mechanical Ventilator 70 06/14/20 04:00 15 Mechanical Ventilator 70 06/14/20 04:00 Mechanical Ventilator Mechanical Ventilator 06/14/20 03:00 101 15 92/64 (73) 97 06/14/20 03:00 15 92/64 70 06/14/20 03:00 15 Mechanical Ventilator 70 06/14/20 02:00 20 100/68 Mechanical Ventilator 70 06/14/20 02:00 20 Mechanical Ventilator 70 06/14/20 02:00 105 20 100/68 (79) 100 06/14/20 01:45 15 Mechanical Ventilator 70 06/14/20 01:30 15 Mechanical Ventilator 70 06/14/20 01:15 15 Mechanical Ventilator 70 06/14/20 01:00 102 15 98/64 (75) 97 06/14/20 01:00 15 98/64 Mechanical Ventilator 70 06/14/20 01:00 15 Mechanical Ventilator 70 06/14/20 00:00 100.5 98 15 97/62 (74) 97 06/14/20 00:00 Mechanical Ventilator Mechanical Ventilator 06/14/20 00:00 15 97/62 Mechanical Ventilator 70 06/14/20 00:00 15 Mechanical Ventilator 70 06/13/20 23:40 100.5 06/13/20 23:00 102 15 98/64 (75) 96 06/13/20 23:00 15 98/64 Mechanical Ventilator 70 06/13/20 23:00 15 Mechanical Ventilator 70 06/13/20 22:00 108 16 106/70 (82) 96 06/13/20 22:00 16 106/70 Mechanical Ventilator 70 06/13/20 22:00 16 Mechanical Ventilator 70 06/13/20 21:00 112 18 106/70 (82) 95 06/13/20 21:00 18 106/70 Mechanical Ventilator 70 06/13/20 21:00 18 Mechanical Ventilator 70 06/13/20 20:00 70 06/13/20 20:00 100.9 109 19 99/71 (80) 97 06/13/20 20:00 19 99/71 Mechanical Ventilator 70 06/13/20 20:00 19 Mechanical Ventilator 70 06/13/20 20:00 Mechanical Ventilator Mechanical Ventilator 06/13/20 20:00 107 06/13/20 19:50 105 18 80 06/13/20 19:00 111 19 106/68 (81) 96 06/13/20 19:00 19 106/68 Mechanical Ventilator 70 06/13/20 19:00 19 Mechanical Ventilator 70 06/13/20 18:30 110 18 102/64 (77) 96 06/13/20 18:00 116 21 104/63 (77) 93 06/13/20 18:00 18 104/63 Mechanical Ventilator 70 06/13/20 18:00 18 Mechanical Ventilator 70 06/13/20 17:30 110 19 104/55 (71) 91 06/13/20 17:00 110 18 108/63 (78) 92 06/13/20 17:00 19 108/63 Mechanical Ventilator 70 06/13/20 17:00 19 Mechanical Ventilator 70 06/13/20 16:30 110 19 105/58 (74) 93 06/13/20 16:00 100.9 108 18 94/53 (67) 95 06/13/20 16:00 109 06/13/20 16:00 70 06/13/20 16:00 19 94/53 Mechanical Ventilator 70 06/13/20 16:00 19 Mechanical Ventilator 70 06/13/20 16:00 Mechanical Ventilator Mechanical Ventilator 06/13/20 15:32 115 25 80 06/13/20 15:30 108 20 93/52 (66) 95 06/13/20 15:00 23 101/53 Mechanical Ventilator 70 06/13/20 15:00 23 Mechanical Ventilator 70 06/13/20 15:00 112 20 106/62 (77) 94 06/13/20 14:00 110 19 107/55 (72) 96 06/13/20 14:00 21 112/65 Mechanical Ventilator 70 06/13/20 14:00 21 Mechanical Ventilator 70 06/13/20 13:30 102.7 06/13/20 13:00 110 19 94/57 (69) 94 06/13/20 13:00 15 109/64 Mechanical Ventilator 70 06/13/20 13:00 15 Mechanical Ventilator 70 06/13/20 12:18 22 Mechanical Ventilator 70 Height (Feet): 5 Height (Inches): 5.00 Weight (Pounds): 308 Microbiology Date/Time Source Procedure Growth Status 06/11/20 16:15 Sputum Gram Stain - Final Complete 06/11/20 16:15 Sputum Culture - Final Serratia Rubidaea Usual Respiratory Bree Complete Laboratory Tests Test 06/13/20 12:21 06/14/20 00:28 06/14/20 03:30 POC Whole Blood Glucose 246 MG/DL (74-106) H 148 MG/DL (74-106) H White Blood Count 11.1 K/UL (4.8-10.8) H Red Blood Count 3.30 M/UL (4.20-5.40) L Hemoglobin 9.7 G/DL (12.0-16.0) L Hematocrit 30.5 % (37.0-47.0) L Mean Corpuscular Volume 92 FL (80-99) Mean Corpuscular Hemoglobin 29.4 PG (27.0-31.0) Mean Corpuscular Hemoglobin Concent 31.8 G/DL (32.0-36.0) L Red Cell Distribution Width 15.3 % (11.6-14.8) H Platelet Count 205 K/UL (150-450) Mean Platelet Volume 8.2 FL (6.5-10.1) Neutrophils (%) (Auto) % (45.0-75.0) Lymphocytes (%) (Auto) % (20.0-45.0) Monocytes (%) (Auto) % (1.0-10.0) Eosinophils (%) (Auto) % (0.0-3.0) Basophils (%) (Auto) % (0.0-2.0) Differential Total Cells Counted 100 Neutrophils % (Manual) 89 % (45-75) H Lymphocytes % (Manual) 8 % (20-45) L Monocytes % (Manual) 2 % (1-10) Eosinophils % (Manual) 1 % (0-3) Basophils % (Manual) 0 % (0-2) Band Neutrophils 0 % (0-8) Platelet Estimate Adequate Platelet Morphology Normal Anisocytosis 1+ Sodium Level 144 MMOL/L (136-145) Potassium Level 3.1 MMOL/L (3.5-5.1) L Chloride Level 102 MMOL/L (98-107) Carbon Dioxide Level 37 MMOL/L (21-32) H Anion Gap 5 mmol/L (5-15) Blood Urea Nitrogen 53 mg/dL (7-18) H Creatinine 1.4 MG/DL (0.55-1.30) #H Estimat Glomerular Filtration Rate 40.0 mL/min (>60) Glucose Level 155 MG/DL (74-106) H Hemoglobin A1c 7.8 % (4.3-6.0) H Uric Acid 3.6 MG/DL (2.6-7.2) Calcium Level 9.1 MG/DL (8.5-10.1) Phosphorus Level 3.9 MG/DL (2.5-4.9) Magnesium Level 2.6 MG/DL (1.8-2.4) H Iron Level 36 ug/dL (50-175) L Total Iron Binding Capacity 171 ug/dL (250-450) L Percent Iron Saturation 21 % (15-50) Unsaturated Iron Binding 135 ug/dL (112-346) Ferritin 1547 NG/ML (8-388) H Total Bilirubin 0.6 MG/DL (0.2-1.0) Aspartate Amino Transf (AST/SGOT) 29 U/L (15-37) Alanine Aminotransferase (ALT/SGPT) 23 U/L (12-78) Alkaline Phosphatase 41 U/L (46-116) L C-Reactive Protein, Quantitative 9.0 mg/dL (0.00-0.90) H Pro-B-Type Natriuretic Peptide 812 pg/mL (0-125) H Total Protein 6.6 G/DL (6.4-8.2) Albumin 2.0 G/DL (3.4-5.0) L Globulin 4.6 g/dL Albumin/Globulin Ratio 0.4 (1.0-2.7) L Triglycerides Level 240 MG/DL (30-150) H Cholesterol Level 250 MG/DL (< 200) H LDL Cholesterol 169 mg/dL (<100) H HDL Cholesterol 27 MG/DL (40-60) L Cholesterol/HDL Ratio 9.3 (3.3-4.4) H Vitamin B12 Level 621 PG/ML (193-986) Vitamin D 25-Hydroxy Pending 25-Hydroxy Vitamin D2 Pending 25-Hydroxy Vitamin D3 Pending Folate 13.0 NG/ML (8.6-58.9) Current Medications Medications (Trade) Dose Ordered Sig/Zelda Route PRN Reason Start Time Stop Time Status Last Admin Dose Admin Acetaminophen (Tylenol) 650 mg Q4H PRN NG Temp >100.5 05/31/20 21:45 06/30/20 21:44 06/14/20 08:23 Acetaminophen (Tylenol) 650 mg Q6H PRN NG Mild Pain (Pain Scale 1-3) 06/06/20 18:00 07/06/20 17:59 06/13/20 23:10 Chlorhexidine Gluconate (Inna-Hex 2%) 1 applic DAILY@2000 TOPIC 05/30/20 20:00 08/28/20 19:59 06/13/20 20:06 Dextrose (Dextrose 50%) 25 ml Q30M PRN IV Hypoglycemia 06/05/20 10:45 09/03/20 10:44 Dextrose (Dextrose 50%) 50 ml Q30M PRN IV Hypoglycemia 06/05/20 10:45 09/03/20 10:44 Docusate Sodium (Colace) 100 mg Q12HR GT 06/07/20 21:00 07/07/20 20:59 06/13/20 20:07 Enoxaparin Sodium (Lovenox) 40 mg DAILY SUBQ 05/30/20 10:00 08/28/20 09:59 06/08/20 09:08 Fentanyl Citrate 250 ml @ 1 mls/hr Q24H IV 06/13/20 01:15 06/15/20 01:14 06/14/20 03:00 Insulin Aspart (NovoLOG) EVERY 6 HOURS SUBQ 06/07/20 00:00 09/03/20 11:59 06/14/20 05:39 Insulin Aspart (NovoLOG) 23 units EVERY 6 HOURS SUBQ 06/13/20 12:00 09/04/20 08:59 06/14/20 05:39 Methylprednisolone Sodium Succinate (Solu-MEDROL) 30 mg DAILY IVP 06/11/20 09:00 09/09/20 08:59 06/14/20 08:22 Midazolam HCl 100 mg/Sodium Chloride 200 ml @ 0 mls/hr Q24H PRN IV sedation 06/12/20 16:30 06/14/20 16:29 06/14/20 10:20 Pantoprazole (Protonix) 40 mg Q12HR IVP 06/13/20 21:00 07/03/20 08:59 06/14/20 08:22 Piperacillin Sod/ Tazobactam Sod 3.375 gm/Sodium Chloride 110 ml @ 27.5 mls/hr Q12HR IVPB 06/13/20 21:00 06/14/20 14:00 06/14/20 08:21 Piperacillin Sod/ Tazobactam Sod 3.375 gm/Sodium Chloride 110 ml @ 27.5 mls/hr Q8HR IVPB 06/14/20 22:00 06/21/20 21:59 Polyethylene Glycol (Miralax) 17 gm BEDTIME GT 06/07/20 21:00 07/07/20 20:59 06/13/20 20:07 Sodium Chloride 1,000 ml @ 50 mls/hr Q20H IV 06/06/20 08:00 07/06/20 07:59 06/13/20 19:59 Fili Mcelroy MD Jun 14, 2020 12:08
--- NOTE | 2020-06-14 13:22 | Nephrology Progress Note ---
Assessment/Plan Problem List: (1) DEVENDRA (acute kidney injury) (2) Morbid obesity (3) Diabetes mellitus out of control (4) Pneumonia due to COVID-19 virus (5) Respiratory failure Assessment Acute renal failure Obstructive uropathy, clogged Lennon Respiratory failure COVID-19 pneumonia Morbid obesity Plan June 14: Labs reviewed. Full code. Serum creatinine of 3.5 down to 1.4. Low potassium addressed. Continue per current treatment plan. Continue to monitor renal parameters. Midodrine started. Albumin bolus given. Previously: DC Lasix drip Increase Protonix dose Monitor renal parameters, electrolytes Per orders Subjective ROS Limited/Unobtainable: Yes Objective Objective Last 24 Hour Vital Signs Date Time Temp Pulse Resp B/P (MAP) Pulse Ox O2 Delivery O2 Flow Rate FiO2 06/14/20 12:15 114 19 98/63 (75) 97 06/14/20 12:00 116 06/14/20 12:00 100.3 110 18 100/57 (71) 95 06/14/20 12:00 60 06/14/20 12:00 Mechanical Ventilator Mechanical Ventilator 06/14/20 11:45 113 19 101/58 (72) 94 06/14/20 11:30 110 19 98/55 (69) 94 06/14/20 11:15 109 17 97/56 (70) 94 06/14/20 11:00 109 17 91/56 (68) 94 06/14/20 10:45 110 17 98/56 (70) 94 06/14/20 10:30 102.3 112 18 95/53 (67) 94 06/14/20 10:20 18 Mechanical Ventilator 60 06/14/20 10:15 111 17 95/51 (66) 94 06/14/20 10:00 111 16 92/54 (67) 94 06/14/20 09:45 112 18 92/59 (70) 93 06/14/20 09:30 116 15 94/59 (71) 99 06/14/20 09:15 118 22 112/66 (81) 85 06/14/20 09:00 60 06/14/20 09:00 113 18 106/60 (75) 95 06/14/20 09:00 111 17 112/66 (81) 97 06/14/20 08:53 100.2 06/14/20 08:45 111 18 93/54 (67) 96 1/22/21 08:30 107 16 98/59 (72) 97 06/14/20 08:15 100.5 107 16 99/61 (74) 97 06/14/20 08:00 108 17 98/59 (72) 96 06/14/20 08:00 113 06/14/20 08:00 70 06/14/20 08:00 Mechanical Ventilator Mechanical Ventilator 06/14/20 08:00 107 16 96/61 (73) 96 06/14/20 07:45 108 17 98/58 (71) 96 06/14/20 07:30 104 17 100/58 (72) 97 06/14/20 07:15 105 16 92/57 (69) 97 06/14/20 07:00 27 94/56 Mechanical Ventilator 70 06/14/20 07:00 27 Mechanical Ventilator 70 06/14/20 07:00 102 27 94/56 (69) 97 06/14/20 07:00 102 27 94/56 (69) 97 06/14/20 06:30 100 15 06/14/20 06:00 15 95/57 Mechanical Ventilator 70 06/14/20 06:00 15 Mechanical Ventilator 70 06/14/20 06:00 100 15 95/57 (70) 97 06/14/20 05:00 16 96/60 Mechanical Ventilator 70 06/14/20 05:00 16 Mechanical Ventilator 70 06/14/20 05:00 102 16 96/60 (72) 94 06/14/20 04:45 15 Mechanical Ventilator 70 06/14/20 04:30 15 Mechanical Ventilator 70 06/14/20 04:15 15 Mechanical Ventilator 70 06/14/20 04:00 100.1 104 15 96/64 (75) 97 06/14/20 04:00 70 06/14/20 04:00 100 06/14/20 04:00 15 96/64 Mechanical Ventilator 70 06/14/20 04:00 15 Mechanical Ventilator 70 06/14/20 04:00 Mechanical Ventilator Mechanical Ventilator 06/14/20 03:00 101 15 92/64 (73) 97 06/14/20 03:00 15 92/64 70 06/14/20 03:00 15 Mechanical Ventilator 70 06/14/20 02:00 20 100/68 Mechanical Ventilator 70 06/14/20 02:00 20 Mechanical Ventilator 70 06/14/20 02:00 105 20 100/68 (79) 100 06/14/20 01:45 15 Mechanical Ventilator 70 06/14/20 01:30 15 Mechanical Ventilator 70 06/14/20 01:15 15 Mechanical Ventilator 70 06/14/20 01:00 102 15 98/64 (75) 97 06/14/20 01:00 15 98/64 Mechanical Ventilator 70 06/14/20 01:00 15 Mechanical Ventilator 70 06/14/20 00:00 100.5 98 15 97/62 (74) 97 06/14/20 00:00 Mechanical Ventilator Mechanical Ventilator 06/14/20 00:00 15 97/62 Mechanical Ventilator 70 06/14/20 00:00 15 Mechanical Ventilator 70 06/13/20 23:40 100.5 06/13/20 23:00 102 15 98/64 (75) 96 06/13/20 23:00 15 98/64 Mechanical Ventilator 70 06/13/20 23:00 15 Mechanical Ventilator 70 06/13/20 22:00 108 16 106/70 (82) 96 06/13/20 22:00 16 106/70 Mechanical Ventilator 70 06/13/20 22:00 16 Mechanical Ventilator 70 06/13/20 21:00 112 18 106/70 (82) 95 06/13/20 21:00 18 106/70 Mechanical Ventilator 70 06/13/20 21:00 18 Mechanical Ventilator 70 06/13/20 20:00 70 06/13/20 20:00 100.9 109 19 99/71 (80) 97 06/13/20 20:00 19 99/71 Mechanical Ventilator 70 06/13/20 20:00 19 Mechanical Ventilator 70 06/13/20 20:00 Mechanical Ventilator Mechanical Ventilator 06/13/20 20:00 107 06/13/20 19:50 105 18 80 06/13/20 19:00 111 19 106/68 (81) 96 06/13/20 19:00 19 106/68 Mechanical Ventilator 70 06/13/20 19:00 19 Mechanical Ventilator 70 06/13/20 18:30 110 18 102/64 (77) 96 06/13/20 18:00 116 21 104/63 (77) 93 06/13/20 18:00 18 104/63 Mechanical Ventilator 70 06/13/20 18:00 18 Mechanical Ventilator 70 06/13/20 17:30 110 19 104/55 (71) 91 06/13/20 17:00 110 18 108/63 (78) 92 06/13/20 17:00 19 108/63 Mechanical Ventilator 70 06/13/20 17:00 19 Mechanical Ventilator 70 06/13/20 16:30 110 19 105/58 (74) 93 06/13/20 16:00 100.9 108 18 94/53 (67) 95 06/13/20 16:00 109 06/13/20 16:00 70 06/13/20 16:00 19 94/53 Mechanical Ventilator 70 06/13/20 16:00 19 Mechanical Ventilator 70 06/13/20 16:00 Mechanical Ventilator Mechanical Ventilator 06/13/20 15:32 115 25 80 06/13/20 15:30 108 20 93/52 (66) 95 06/13/20 15:00 23 101/53 Mechanical Ventilator 70 06/13/20 15:00 23 Mechanical Ventilator 70 06/13/20 15:00 112 20 106/62 (77) 94 06/13/20 14:00 110 19 107/55 (72) 96 06/13/20 14:00 21 112/65 Mechanical Ventilator 70 06/13/20 14:00 21 Mechanical Ventilator 70 06/13/20 13:30 102.7 Intake and Output 06/13/20 06/14/20 19:00 07:00 Intake Total 1328.94945 ml 1661 ml Output Total 2050 ml 1905 ml Balance -721.76011 ml -244 ml Free Water 325 ml 180 ml IV Total 253.94160 ml 761 ml Tube Feeding 720 ml 720 ml Other 30 ml Output Urine Total 2050 ml 1905 ml Current Medications Medications (Trade) Dose Ordered Sig/Zelda Route PRN Reason Start Time Stop Time Status Last Admin Dose Admin Acetaminophen (Tylenol) 650 mg Q4H PRN NG Temp >100.5 05/31/20 21:45 06/30/20 21:44 06/14/20 08:23 Acetaminophen (Tylenol) 650 mg Q6H PRN NG Mild Pain (Pain Scale 1-3) 06/06/20 18:00 07/06/20 17:59 06/13/20 23:10 Chlorhexidine Gluconate (Inna-Hex 2%) 1 applic DAILY@1999 TOPIC 05/30/20 20:00 08/28/20 19:59 06/13/20 20:06 Dextrose (Dextrose 50%) 25 ml Q30M PRN IV Hypoglycemia 06/05/20 10:45 09/03/20 10:44 Dextrose (Dextrose 50%) 50 ml Q30M PRN IV Hypoglycemia 06/05/20 10:45 09/03/20 10:44 Docusate Sodium (Colace) 100 mg Q12HR GT 06/07/20 21:00 07/07/20 20:59 06/13/20 20:07 Enoxaparin Sodium (Lovenox) 40 mg DAILY SUBQ 05/30/20 10:00 08/28/20 09:59 06/08/20 09:08 Fentanyl Citrate 250 ml @ 1 mls/hr Q24H IV 06/13/20 01:15 06/18/20 01:14 06/14/20 03:00 Insulin Aspart (NovoLOG) EVERY 6 HOURS SUBQ 06/07/20 00:00 09/03/20 11:59 06/14/20 12:24 Insulin Aspart (NovoLOG) 23 units EVERY 6 HOURS SUBQ 06/13/20 12:00 09/04/20 08:59 06/14/20 12:25 Methylprednisolone Sodium Succinate (Solu-MEDROL) 20 mg DAILY IVP 06/15/20 09:00 09/13/20 08:59 Midazolam HCl 100 mg/Sodium Chloride 200 ml @ 0 mls/hr Q24H PRN IV sedation 06/12/20 16:30 06/17/20 16:29 06/14/20 10:20 Pantoprazole (Protonix) 40 mg Q12HR IVP 06/13/20 21:00 07/03/20 08:59 06/14/20 08:22 Piperacillin Sod/ Tazobactam Sod 3.375 gm/Sodium Chloride 110 ml @ 27.5 mls/hr Q12HR IVPB 06/13/20 21:00 06/14/20 14:00 06/14/20 08:21 Piperacillin Sod/ Tazobactam Sod 3.375 gm/Sodium Chloride 110 ml @ 27.5 mls/hr Q8HR IVPB 06/14/20 22:00 06/21/20 21:59 Polyethylene Glycol (Miralax) 17 gm BEDTIME GT 06/07/20 21:00 07/07/20 20:59 06/13/20 20:07 Sodium Chloride 1,000 ml @ 50 mls/hr Q20H IV 06/06/20 08:00 07/06/20 07:59 06/13/20 19:59 Laboratory Tests 06/14/20 00:28: POC Whole Blood Glucose 148H 06/14/20 03:30: White Blood Count 11.1H, Red Blood Count 3.30L, Hemoglobin 9.7L, Hematocrit 30.5L, Mean Corpuscular Volume 92, Mean Corpuscular Hemoglobin 29.4, Mean Corpuscular Hemoglobin Concent 31.8L, Red Cell Distribution Width 15.3H, Platelet Count 205, Mean Platelet Volume 8.2, Neutrophils (%) (Auto) , Lymphocytes (%) (Auto) , Monocytes (%) (Auto) , Eosinophils (%) (Auto) , Basop hils (%) (Auto) , Differential Total Cells Counted 100, Neutrophils % (Manual) 89H, Lymphocytes % (Manual) 8L, Monocytes % (Manual) 2, Eosinophils % (Manual) 1, Basophils % (Manual) 0, Band Neutrophils 0, Platelet Estimate Adequate, Platelet Morphology Normal, Anisocytosis 1+, Sodium Level 144, Potassium Level 3.1L, Chloride Level 102, Carbon Dioxide Level 37H, Anion Gap 5, Blood Urea Nitrogen 53H, Creatinine 1.4#H, Estimat Glomerular Filtration Rate 40.0, Glucose Level 155H, Hemoglobin A1c 7.8H, Uric Acid 3.6, Calcium Level 9.1, Phosphorus Level 3.9, Magnesium Level 2.6H, Iron Level 36L, Total Iron Binding Capacity 171L, Percent Iron Saturation 21, Unsaturated Iron Binding 135, Ferritin 1547H, Total Bilirubin 0.6, Aspartate Amino Transf (AST/SGOT) 29, Alanine A minotransferase (ALT/SGPT) 23, Alkaline Phosphatase 41L, C-Reactive Protein, Quantitative 9.0H, Pro-B-Type Natriuretic Peptide 812H, Total Protein 6.6, Albumin 2.0L, Globulin 4.6, Albumin/Globulin Ratio 0.4L, Triglycerides Level 240H, Cholesterol Level 250H, LDL Cholesterol 169H, HDL Cholesterol 27L, Cholesterol/HDL Ratio 9.3H, Vitamin B12 Level 621, Vitamin D 25-Hydroxy [Pending], 25-Hydroxy Vitamin D2 [Pending], 25-Hydroxy Vitamin D3 [Pending], Folate 13.0 Height (Feet): 5 Height (Inches): 5.00 Weight (Pounds): 308 General Appearance: no apparent distress EENT: other - Intubated on ventilator Cardiovascular: tachycardia Respiratory/Chest: decreased breath sounds Abdomen: distended Rigo Tyler MD Jun 14, 2020 13:22
[2020-06-14] MEDS: Midodrine 10mg tab ORAL SCH ×2 (13:29→22:00)
[2020-06-14] MEDS ORDERED: Sterile Water Irrig 1000ml IRRIG ONE ×2 (13:38→17:55)
[2020-06-14] MEDS ORDERED: D5W 550ml IV ONE (13:38)
[2020-06-14] MEDS ORDERED: Tubing IV Secondary IV ONE ×2 (13:38→17:55)
--- NOTE | 2020-06-14 14:45 | NUR ---
NURSE NOTES: Left message for Dr Nava regarding ABG result post ventilator setting change. Awaiting call back.
--- NOTE | 2020-06-14 15:13 | NUR ---
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 IS: Versed GTT Fentanyl GTT Solu-Medrol IVP q 24h Lovenox SQ QD Protonix IVP QD Zosyn IV q 8 h NS@ 50cc/hr ICU status
--- NOTE | 2020-06-14 15:43 | NUR ---
NURSE NOTES: Received call back from Dr Nava. Notified him regarding ABG result. Received order to increase ventilator tidal volume to 600. order read back, verified, and placed. Will notify Jana LARSEN.
--- NOTE | 2020-06-14 16:00 | NUR ---
NURSE NOTES: Pt continues to have fever >100 degrees. Will continue cooling measures and administer tylenol as ordered. HR remains elevated >100 beats per minute. No sign of distress. OGT got pulled out. NGT placed in left nares, verified with auscultation and abdominal x-ray. 60cm at the nares. Pt tolerated with no sign of distress. Pt repositioned and oral care done at this time.
--- NOTE | 2020-06-14 16:29 | Diagnostic Imaging Report ---
Indication: Nasogastric intubation Technique: XRAY Abdomen 1v Comparison: None Findings: NG tube tip and side port within the stomach. Bowel gas pattern is nonspecific but not overtly obstructive. Bilateral infiltrates partially visualized in the lung bases. No acute osseous abnormality appreciated. IMPRESSION: Satisfactory enteric intubation
[2020-06-14] MEDS ORDERED: NS 275ml ONE (17:55)
--- NOTE | 2020-06-14 18:00 | NUR ---
NURSE NOTES: Pt had large BM. Bed bath done at this time. Pt repositioned and oral care done. Pt continues to have fever. HR WNL at this time. Will continue to monitor.
--- NOTE | 2020-06-14 19:15 | NUR ---
NURSE NOTES: Received patient from RAKEL Shepherd. patiet is sedated. sinus tachycardia on the monitor (HR 109). ETT 7.5, 23cm at the lip. AC 15 TV 600 FiO2 60% PEEP 8. NGT on the left nare in place running vital AF @60, tolerating well. marrero in place ad draining well to gravity, gross hematuria noted. LINDA picc in place, dressing dry and intact. fentanyl @70mcg/hr, versed @3mg/hr, NS @50ml/hr. restraints bilateral wrists on. bed to lowest position and locked. call light within easy reach. side rails up x2. will continue plan of care.
--- NOTE | 2020-06-14 19:20 | NUR ---
HAND-OFF: Report given to RAKEL Lizama.
[2020-06-14] MEDS: Dyna-Hex 2% Top Sol 2oz TOPIC SCH (20:00)
--- NOTE | 2020-06-14 20:00 | NUR ---
NURSE NOTES: temp 100.6. cooling measures applied
[2020-06-14] MEDS: Miralax 17gm pkt GT SCH (20:40)
--- NOTE | 2020-06-14 23:10 | NUR ---
NURSE NOTES: RT came at bedside and titrated FiO2 from 60% to 40%.
--- NOTE | 2020-06-14 23:30 | NUR ---
NURSE NOTES: temp 100.8. tylenol given and cooling measures continued. will reassess
[2020-06-15] VITALS (25 sets, daily range): BP systolic 103–126; BP diastolic 57–81
[2020-06-15] MEDS: fentaNYL 2500mcg/NS 250ml 250 ML IV SCH ×2 (01:15→15:30)
--- NOTE | 2020-06-15 03:45 | NUR ---
NURSE NOTES: increased versed from 3mg/hr to 4mg/hr. will monitor closely.
--- NOTE | 2020-06-15 05:00 | NUR ---
NURSE NOTES: bed bath performed. no BM. cooling measures continued.
[2020-06-15] MEDS: NovoLOG Insulin Flexpen SUBQ SCH ×6 (05:35→18:21)
[2020-06-15] MEDS: Piperacillin/Tazobactam 3.375 GM in NS 110 ML IVPB SCH ×3 (05:49→21:36)
[2020-06-15] MEDS: Midodrine 10mg tab ORAL SCH ×3 (05:49→21:36)
[2020-06-15 06:21] LABS: BASOPHILS % (AUTO) 0.2 % (0.0-2.0); EOSINOPHILS % (AUTO) 2.4 % (0.0-3.0); HEMOGLOBIN 8.6 G/DL (12.0-16.0); LYMPHOCYTES % (AUTO) 15.3 % (20.0-45.0); MEAN CORPUSCULAR VOLUME 94 FL (80-99); MONOCYTES % (AUTO) 1.3 % (1.0-10.0); NEUTROPHILS % (AUTO) 80.8 % (45.0-75.0); PLATELET COUNT 200 K/UL (150-450); RED BLOOD COUNT 2.98 M/UL (4.20-5.40); RED CELL DISTRIBUTION WIDTH 15.6 % (11.6-14.8); WHITE BLOOD COUNT 10.1 K/UL (4.8-10.8)
[2020-06-15 06:30] LABS: POTASSIUM 3.5 MMOL/L (3.5-5.1)
--- NOTE | 2020-06-15 07:20 | NUR ---
NURSE HAND-OFF REPORT: Latest Vital Signs: Temperature 98.7 , Pulse 83 , B/P 106 /62 , Respiratory Rate 17 , O2 SAT 96 , Mechanical Ventilator, O2 Flow Rate . Vital Sign Comment: stable EKG Rhythm: Sinus Rhythm Rhythm change?: N MD Notified?: - MD Response: Latest Meyers Fall Score: 70 Fall Risk: High Risk Safety Measures: Call light Within Reach, Bed Alarm Zone 1, Side Rails Side Rails x2, Bed position Low and Locked. Fall Precautions: Yellow Socks Yellow Gown Door Sign Patient Fall Education Report given to RAKEL Bernal and RAKEL Tolentino.
--- NOTE | 2020-06-15 07:26 | Infectious Diseases Prog Note ---
Assessment/Plan Assessment/Plan A 1. COVID19 pneumonia 2. Hypoxic respiratory failure 3. Morbid obesity 4. DM type with hyperglycemia 5. Thrombocytopenia 6. leukocytosis resolved 7. Serratia pneumonia 8. Anemia P 1. Finished remdesivir course 2. continue Solumedrol tapering 3. Continue Zosyn Subjective ROS Limited/Unobtainable: Yes Neurologic: Reports: confusion, other - on restraint Allergies: Coded Allergies: No Known Allergies (Unverified , 05/28/20) Objective Last 24 Hour Vital Signs Date Time Temp Pulse Resp B/P (MAP) Pulse Ox O2 Delivery O2 Flow Rate FiO2 06/15/20 07:00 83 19 106/62 (77) 96 06/15/20 06:30 92 19 06/15/20 06:00 92 19 112/60 (77) 95 06/15/20 06:00 19 112/60 Mechanical Ventilator 40 06/15/20 06:00 19 Mechanical Ventilator 40 06/15/20 05:00 20 108/57 Mechanical Ventilator 40 06/15/20 05:00 20 Mechanical Ventilator 40 06/15/20 05:00 94 20 108/57 (74) 94 06/15/20 04:00 98.7 88 15 113/65 (81) 95 06/15/20 04:00 40 06/15/20 04:00 Mechanical Ventilator Mechanical Ventilator 06/15/20 04:00 15 113/65 Mechanical Ventilator 40 06/15/20 04:00 15 Mechanical Ventilator 40 06/15/20 04:00 99 06/15/20 03:45 97 21 113/62 (79) 94 06/15/20 03:45 21 113/62 Mechanical Ventilator 40 06/15/20 03:45 21 Mechanical Ventilator 40 06/15/20 03:20 91 20 60 06/15/20 03:00 93 18 107/63 (78) 94 06/15/20 03:00 18 107/63 Mechanical Ventilator 40 06/15/20 03:00 18 Mechanical Ventilator 40 06/15/20 02:00 90 17 119/62 (81) 96 06/15/20 02:00 17 119/62 Mechanical Ventilator 40 06/15/20 02:00 17 Mechanical Ventilator 40 06/15/20 01:15 15 107/60 Mechanical Ventilator 40 06/15/20 01:00 13 109/63 Mechanical Ventilator 40 06/15/20 01:00 13 Mechanical Ventilator 40 06/15/20 01:00 83 13 109/63 (78) 96 06/15/20 00:00 18 103/60 Mechanical Ventilator 40 06/15/20 00:00 18 Mechanical Ventilator 40 06/15/20 00:00 100.8 82 18 103/60 (74) 96 06/15/20 00:00 Mechanical Ventilator Mechanical Ventilator 06/15/20 00:00 110 06/15/20 00:00 40 06/14/20 23:42 101.0 06/14/20 23:00 86 6 109/64 (79) 96 06/14/20 23:00 15 109/64 Mechanical Ventilator 40 06/14/20 23:00 15 Mechanical Ventilator 40 06/14/20 23:00 85 20 60 06/14/20 22:00 91 19 106/61 (76) 96 06/14/20 22:00 19 106/61 Mechanical Ventilator 60 06/14/20 22:00 19 Mechanical Ventilator 60 06/14/20 21:00 17 100/62 Mechanical Ventilator 60 06/14/20 21:00 17 Mechanical Ventilator 60 06/14/20 21:00 95 17 100/62 (75) 96 06/14/20 20:00 100.6 106 16 112/61 (78) 95 06/14/20 20:00 60 06/14/20 20:00 Mechanical Ventilator Mechanical Ventilator 06/14/20 20:00 15 112/61 Mechanical Ventilator 60 06/14/20 20:00 16 Mechanical Ventilator 60 06/14/20 20:00 98 06/14/20 19:20 103 18 60 06/14/20 19:00 15 108/65 Mechanical Ventilator 60 06/14/20 19:00 15 Mechanical Ventilator 60 06/14/20 19:00 93 0 100/59 (73) 97 06/14/20 18:30 98 15 102/60 (74) 97 06/14/20 18:22 102.2 06/14/20 18:00 98 15 104/66 (79) 96 06/14/20 18:00 100 15 104/66 (79) 98 06/14/20 18:00 15 104/66 Mechanical Ventilator 60 06/14/20 18:00 15 Mechanical Ventilator 60 06/14/20 17:30 95 16 95/57 (70) 97 06/14/20 17:00 103 3 99/59 (72) 96 06/14/20 17:00 15 102/59 Mechanical Ventilator 60 06/14/20 17:00 15 Mechanical Ventilator 60 06/14/20 17:00 99 17 102/59 (73) 96 06/14/20 16:30 106 15 99/51 (67) 95 06/14/20 16:00 110 15 97/53 (68) 95 06/14/20 16:00 Mechanical Ventilator Mechanical Ventilator 06/14/20 16:00 109 16 97/53 (68) 93 06/14/20 16:00 20 112/54 Mechanical Ventilator 60 06/14/20 16:00 15 Mechanical Ventilator 60 06/14/20 16:00 113 06/14/20 16:00 60 06/14/20 16:00 101.2 06/14/20 15:45 112 19 113/55 (74) 97 06/14/20 15:30 118 22 115/62 (79) 97 06/14/20 15:20 108 19 60 06/14/20 15:00 113 19 113/65 (81) 96 06/14/20 15:00 20 111/57 Mechanical Ventilator 60 06/14/20 15:00 20 Mechanical Ventilator 60 06/14/20 14:30 117 20 114/55 (74) 96 06/14/20 14:15 121 20 116/56 (76) 95 06/14/20 14:00 130 23 116/63 (80) 95 06/14/20 14:00 21 116/56 Mechanical Ventilator 60 06/14/20 14:00 21 Mechanical Ventilator 60 06/14/20 13:59 100.2 06/14/20 13:45 131 29 130/72 (91) 92 06/14/20 13:31 126 24 114/66 (82) 94 06/14/20 13:30 127 24 114/66 (82) 95 06/14/20 13:15 123 31 114/66 (82) 90 06/14/20 13:00 24 114/66 Mechanical Ventilator 60 06/14/20 13:00 24 Mechanical Ventilator 60 06/14/20 13:00 132 29 114/66 (82) 92 06/14/20 12:45 119 22 105/63 (77) 95 06/14/20 12:30 116 21 104/62 (76) 95 06/14/20 12:15 114 19 98/63 (75) 97 06/14/20 12:00 116 06/14/20 12:00 100.3 110 18 100/57 (71) 95 06/14/20 12:00 20 98/63 Mechanical Ventilator 60 06/14/20 12:00 20 Mechanical Ventilator 60 06/14/20 12:00 60 06/14/20 12:00 Mechanical Ventilator Mechanical Ventilator 06/14/20 11:45 113 19 101/58 (72) 94 06/14/20 11:38 112 19 60 06/14/20 11:30 110 19 98/55 (69) 94 06/14/20 11:15 109 17 97/56 (70) 94 06/14/20 11:00 18 97/56 Mechanical Ventilator 60 06/14/20 11:00 18 Mechanical Ventilator 60 06/14/20 11:00 109 17 91/56 (68) 94 06/14/20 10:47 109 17 60 06/14/20 10:45 110 17 98/56 (70) 94 06/14/20 10:30 102.3 112 18 95/53 (67) 94 06/14/20 10:20 18 Mechanical Ventilator 60 06/14/20 10:15 111 17 95/51 (66) 94 06/14/20 10:00 17 95/51 Mechanical Ventilator 60 06/14/20 10:00 17 Mechanical Ventilator 60 06/14/20 10:00 111 16 92/54 (67) 94 06/14/20 09:45 112 18 92/59 (70) 93 06/14/20 09:30 116 15 94/59 (71) 99 06/14/20 09:15 118 22 112/66 (81) 85 06/14/20 09:00 60 06/14/20 09:00 113 18 106/60 (75) 95 06/14/20 09:00 17 112/66 Mechanical Ventilator 60 06/14/20 09:00 17 Mechanical Ventilator 60 06/14/20 09:00 111 17 112/66 (81) 97 06/14/20 08:53 100.2 06/14/20 08:45 111 18 93/54 (67) 96 06/14/20 08:30 107 16 98/59 (72) 97 06/14/20 08:15 100.5 107 16 99/61 (74) 97 06/14/20 08:00 108 17 98/59 (72) 96 06/14/20 08:00 113 06/14/20 08:00 70 06/14/20 08:00 Mechanical Ventilator Mechanical Ventilator 06/14/20 08:00 16 99/61 70 06/14/20 08:00 17 Mechanical Ventilator 70 06/14/20 08:00 107 16 96/61 (73) 96 06/14/20 07:45 108 17 98/58 (71) 96 06/14/20 07:30 104 17 100/58 (72) 97 Height (Feet): 5 Height (Inches): 5.00 Weight (Pounds): 308 HEENT: mucous membranes moist, other - orally intubated Respiratory/Chest: other - on ventilator, FIO2=40% Abdomen: soft, non tender Extremities: other - edema Neurologic/Psychiatric: other - sedated Laboratory Tests Test 06/14/20 13:19 06/15/20 05:00 Arterial Blood pH 7.302 (7.350-7.450) Arterial Blood Partial Pressure CO2 89.7 mmHg (35.0-45.0) *H Arterial Blood Partial Pressure O2 116.7 mmHg (75.0-100.0) H Arterial Blood HCO3 43.3 mmol/L (22.0-26.0) *H Arterial Blood Oxygen Saturation 97.8 % (95-100) Arterial Blood Base Excess 15.4 (-2-2) *H Jeremiah Test Positive White Blood Count 10.1 K/UL (4.8-10.8) Red Blood Count 2.98 M/UL (4.20-5.40) L Hemoglobin 8.6 G/DL (12.0-16.0) L Hematocrit 28.0 % (37.0-47.0) L Mean Corpuscular Volume 94 FL (80-99) Mean Corpuscular Hemoglobin 29.0 PG (27.0-31.0) Mean Corpuscular Hemoglobin Concent 30.9 G/DL (32.0-36.0) L Red Cell Distribution Width 15.6 % (11.6-14.8) H Platelet Count 200 K/UL (150-450) Mean Platelet Volume 8.5 FL (6.5-10.1) Neutrophils (%) (Auto) 80.8 % (45.0-75.0) H Lymphocytes (%) (Auto) 15.3 % (20.0-45.0) L Monocytes (%) (Auto) 1.3 % (1.0-10.0) Eosinophils (%) (Auto) 2.4 % (0.0-3.0) Basophils (%) (Auto) 0.2 % (0.0-2.0) Sodium Level 146 MMOL/L (136-145) H Potassium Level 3.5 MMOL/L (3.5-5.1) Chloride Level 107 MMOL/L (98-107) Carbon Dioxide Level 35 MMOL/L (21-32) H Anion Gap 4 mmol/L (5-15) L Blood Urea Nitrogen 42 mg/dL (7-18) H Creatinine 1.0 MG/DL (0.55-1.30) Estimat Glomerular Filtration Rate 58.9 mL/min (>60) Glucose Level 144 MG/DL (74-106) H Calcium Level 9.0 MG/DL (8.5-10.1) Current Medications Medications (Trade) Dose Ordered Sig/Zelda Route PRN Reason Start Time Stop Time Status Last Admin Dose Admin Acetaminophen (Tylenol) 650 mg Q4H PRN NG Temp >100.5 05/31/20 21:45 06/30/20 21:44 06/14/20 23:12 Acetaminophen (Tylenol) 650 mg Q6H PRN NG Mild Pain (Pain Scale 1-3) 06/06/20 18:00 07/06/20 17:59 06/13/20 23:10 Chlorhexidine Gluconate (Inna-Hex 2%) 1 applic DAILY@2000 TOPIC 05/30/20 20:00 08/28/20 19:59 06/14/20 20:00 Dextrose (Dextrose 50%) 25 ml Q30M PRN IV Hypoglycemia 06/05/20 10:45 09/03/20 10:44 Dextrose (Dextrose 50%) 50 ml Q30M PRN IV Hypoglycemia 06/05/20 10:45 09/03/20 10:44 Docusate Sodium (Colace) 100 mg Q12HR GT 06/07/20 21:00 07/07/20 20:59 06/14/20 20:40 Enoxaparin Sodium (Lovenox) 40 mg DAILY SUBQ 05/30/20 10:00 08/28/20 09:59 06/08/20 09:08 Fentanyl Citrate 250 ml @ 1 mls/hr Q24H IV 06/13/20 01:15 06/18/20 01:14 06/14/20 03:00 Insulin Aspart (NovoLOG) EVERY 6 HOURS SUBQ 06/07/20 00:00 09/03/20 11:59 06/15/20 05:35 Insulin Aspart (NovoLOG) 23 units EVERY 6 HOURS SUBQ 06/13/20 12:00 09/04/20 08:59 06/15/20 05:36 Methylprednisolone Sodium Succinate (Solu-MEDROL) 20 mg DAILY IVP 06/15/20 09:00 09/13/20 08:59 Midazolam HCl 100 mg/Sodium Chloride 200 ml @ 0 mls/hr Q24H PRN IV sedation 06/12/20 16:30 06/17/20 16:29 06/14/20 10:20 Midodrine (Pro-Amatine) 10 mg Q8HR ORAL 06/14/20 14:00 09/12/20 13:59 06/15/20 05:49 Pantoprazole (Protonix) 40 mg Q12HR IVP 06/13/20 21:00 07/03/20 08:59 06/14/20 20:40 Piperacillin Sod/ Tazobactam Sod 3.375 gm/Sodium Chloride 110 ml @ 27.5 mls/hr Q8HR IVPB 06/14/20 22:00 06/21/20 21:59 06/15/20 05:49 Polyethylene Glycol (Miralax) 17 gm BEDTIME GT 06/07/20 21:00 07/07/20 20:59 06/14/20 20:40 Sodium Chloride 1,000 ml @ 50 mls/hr Q20H IV 06/06/20 08:00 07/06/20 07:59 06/14/20 15:57 Colt Arana MD Jun 15, 2020 07:26
--- NOTE | 2020-06-15 07:59 | NUR ---
NURSE NOTES: Received report from Dl ELLINGTON.
[2020-06-15] MEDS: Enoxaparin 40mg Inj SUBQ SCH (08:27)
--- NOTE | 2020-06-15 08:28 | NUR ---
NURSE NOTES: Re held Lovenox, pt has gross hematuria at this time. MD goncalves
[2020-06-15] MEDS: Pantoprazole Inj IVP SCH ×2 (08:38→20:49)
[2020-06-15] MEDS: Solu-MEDROL 40mg Inj IVP SCH (08:38)
[2020-06-15] MEDS: Docusate 100mg/10ml Liq GT SCH ×2 (08:38→20:49)
--- NOTE | 2020-06-15 08:56 | NUR ---
CASE MANAGEMENT:REVIEW 06/15/20 SI: COVID PNA ACUTE RESPIRATORY FAILURE~ INTUBATED 99.8 95 22 112/61 95% ON VENT SUPPORT W/40% FIO2 H/H-8.6/28.0 BUN+42 IS: FENTANYL GTT VERSED GTT IV SOLUMEDROL 20MG QD IV ZOSYN Q8HRS IVF@50/HR IV PROTONIX Q12 MIDODRINE NG Q8HRS LOVENOX SQ QD : ICU STATUS PLAN: HOLDING LOVENOX D/T HEMATURIA
--- NOTE | 2020-06-15 09:15 | Pulmonology Progress Note ---
Subjective ROS Limited/Unobtainable: Yes Interval Events: Remains intubated Constitutional: Reports: fever, other - T=103 HEENT: Repors: no symptoms Respiratory: Reports: no symptoms Cardiovascular: Reports: no symptoms Gastrointestinal/Abdominal: Reports: no symptoms Genitourinary: Reports: no symptoms Allergies: Coded Allergies: No Known Allergies (Unverified , 05/28/20) All Systems: reviewed and negative except above Objective Last 24 Hour Vital Signs Date Time Temp Pulse Resp B/P (MAP) Pulse Ox O2 Delivery O2 Flow Rate FiO2 06/15/20 08:00 40 06/15/20 08:00 99.8 95 22 112/61 (78) 95 06/15/20 07:35 83 17 60 06/15/20 07:00 19 106/62 Mechanical Ventilator 40 06/15/20 07:00 19 Mechanical Ventilator 40 06/15/20 07:00 83 19 106/62 (77) 96 06/15/20 06:30 92 19 06/15/20 06:00 92 19 112/60 (77) 95 06/15/20 06:00 19 112/60 Mechanical Ventilator 40 06/15/20 06:00 19 Mechanical Ventilator 40 06/15/20 05:00 20 108/57 Mechanical Ventilator 40 06/15/20 05:00 20 Mechanical Ventilator 40 06/15/20 05:00 94 20 108/57 (74) 94 06/15/20 04:00 98.7 88 15 113/65 (81) 95 06/15/20 04:00 40 06/15/20 04:00 Mechanical Ventilator Mechanical Ventilator 06/15/20 04:00 15 113/65 Mechanical Ventilator 40 06/15/20 04:00 15 Mechanical Ventilator 40 06/15/20 04:00 99 06/15/20 03:45 97 21 113/62 (79) 94 06/15/20 03:45 21 113/62 Mechanical Ventilator 40 06/15/20 03:45 21 Mechanical Ventilator 40 06/15/20 03:20 91 20 60 06/15/20 03:00 93 18 107/63 (78) 94 06/15/20 03:00 18 107/63 Mechanical Ventilator 40 06/15/20 03:00 18 Mechanical Ventilator 40 06/15/20 02:00 90 17 119/62 (81) 96 06/15/20 02:00 17 119/62 Mechanical Ventilator 40 06/15/20 02:00 17 Mechanical Ventilator 40 06/15/20 01:15 15 107/60 Mechanical Ventilator 40 06/15/20 01:00 13 109/63 Mechanical Ventilator 40 06/15/20 01:00 13 Mechanical Ventilator 40 06/15/20 01:00 83 13 109/63 (78) 96 06/15/20 00:00 18 103/60 Mechanical Ventilator 40 06/15/20 00:00 18 Mechanical Ventilator 40 06/15/20 00:00 100.8 82 18 103/60 (74) 96 06/15/20 00:00 Mechanical Ventilator Mechanical Ventilator 06/15/20 00:00 110 06/15/20 00:00 40 06/14/20 23:42 101.0 06/14/20 23:00 86 6 109/64 (79) 96 06/14/20 23:00 15 109/64 Mechanical Ventilator 40 06/14/20 23:00 15 Mechanical Ventilator 40 06/14/20 23:00 85 20 60 06/14/20 22:00 91 19 106/61 (76) 96 06/14/20 22:00 19 106/61 Mechanical Ventilator 60 06/14/20 22:00 19 Mechanical Ventilator 60 06/14/20 21:00 17 100/62 Mechanical Ventilator 60 06/14/20 21:00 17 Mechanical Ventilator 60 06/14/20 21:00 95 17 100/62 (75) 96 06/14/20 20:00 100.6 106 16 112/61 (78) 95 06/14/20 20:00 60 06/14/20 20:00 Mechanical Ventilator Mechanical Ventilator 06/14/20 20:00 15 112/61 Mechanical Ventilator 60 06/14/20 20:00 16 Mechanical Ventilator 60 06/14/20 20:00 98 06/14/20 19:20 103 18 60 06/14/20 19:00 15 108/65 Mechanical Ventilator 60 06/14/20 19:00 15 Mechanical Ventilator 60 06/14/20 19:00 93 0 100/59 (73) 97 06/14/20 18:30 98 15 102/60 (74) 97 06/14/20 18:22 102.2 06/14/20 18:00 98 15 104/66 (79) 96 06/14/20 18:00 100 15 104/66 (79) 98 06/14/20 18:00 15 104/66 Mechanical Ventilator 60 06/14/20 18:00 15 Mechanical Ventilator 60 06/14/20 17:30 95 16 95/57 (70) 97 06/14/20 17:00 103 3 99/59 (72) 96 06/14/20 17:00 15 102/59 Mechanical Ventilator 60 06/14/20 17:00 15 Mechanical Ventilator 60 06/14/20 17:00 99 17 102/59 (73) 96 06/14/20 16:30 106 15 99/51 (67) 95 06/14/20 16:00 110 15 97/53 (68) 95 06/14/20 16:00 Mechanical Ventilator Mechanical Ventilator 06/14/20 16:00 109 16 97/53 (68) 93 06/14/20 16:00 20 112/54 Mechanical Ventilator 60 06/14/20 16:00 15 Mechanical Ventilator 60 06/14/20 16:00 113 06/14/20 16:00 60 06/14/20 16:00 101.2 06/14/20 15:45 112 19 113/55 (74) 97 06/14/20 15:30 118 22 115/62 (79) 97 06/14/20 15:20 108 19 60 06/14/20 15:00 113 19 113/65 (81) 96 06/14/20 15:00 20 111/57 Mechanical Ventilator 60 06/14/20 15:00 20 Mechanical Ventilator 60 06/14/20 14:30 117 20 114/55 (74) 96 06/14/20 14:15 121 20 116/56 (76) 95 06/14/20 14:00 130 23 116/63 (80) 95 06/14/20 14:00 21 116/56 Mechanical Ventilator 60 06/14/20 14:00 21 Mechanical Ventilator 60 06/14/20 13:59 100.2 06/14/20 13:45 131 29 130/72 (91) 92 06/14/20 13:31 126 24 114/66 (82) 94 06/14/20 13:30 127 24 114/66 (82) 95 06/14/20 13:15 123 31 114/66 (82) 90 06/14/20 13:00 24 114/66 Mechanical Ventilator 60 06/14/20 13:00 24 Mechanical Ventilator 60 06/14/20 13:00 132 29 114/66 (82) 92 06/14/20 12:45 119 22 105/63 (77) 95 06/14/20 12:30 116 21 104/62 (76) 95 06/14/20 12:15 114 19 98/63 (75) 97 06/14/20 12:00 116 06/14/20 12:00 100.3 110 18 100/57 (71) 95 06/14/20 12:00 20 98/63 Mechanical Ventilator 60 06/14/20 12:00 20 Mechanical Ventilator 60 06/14/20 12:00 60 06/14/20 12:00 Mechanical Ventilator Mechanical Ventilator 06/14/20 11:45 113 19 101/58 (72) 94 06/14/20 11:38 112 19 60 06/14/20 11:30 110 19 98/55 (69) 94 06/14/20 11:15 109 17 97/56 (70) 94 06/14/20 11:00 18 97/56 Mechanical Ventilator 60 06/14/20 11:00 18 Mechanical Ventilator 60 06/14/20 11:00 109 17 91/56 (68) 94 06/14/20 10:47 109 17 60 06/14/20 10:45 110 17 98/56 (70) 94 06/14/20 10:30 102.3 112 18 95/53 (67) 94 06/14/20 10:20 18 Mechanical Ventilator 60 06/14/20 10:15 111 17 95/51 (66) 94 06/14/20 10:00 17 95/51 Mechanical Ventilator 60 06/14/20 10:00 17 Mechanical Ventilator 60 06/14/20 10:00 111 16 92/54 (67) 94 06/14/20 09:45 112 18 92/59 (70) 93 06/14/20 09:30 116 15 94/59 (71) 99 06/14/20 09:15 118 22 112/66 (81) 85 Intake and Output 06/14/20 06/15/20 19:00 07:00 Intake Total 1488.5 ml 1478.50 ml Output Total 1225 ml 1680 ml Balance 263.5 ml -201.50 ml IV Total 1068.5 ml 758.50 ml Tube Feeding 420 ml 720 ml Output Urine Total 1225 ml 1680 ml # Bowel Movements 1 General Appearance: no acute distress HEENT: normocephalic Respiratory: chest wall non-tender Cardiovascular: normal peripheral pulses Abdomen: normal bowel sounds Laboratory Tests 06/14/20 13:19: Arterial Blood pH 7.302L, Arterial Blood Partial Pressure CO2 89.7*H, Arterial Blood Partial Pressure O2 116.7H, Arterial Blood HCO3 43.3*H, Arterial Blood Oxygen Saturation 97.8, Arterial Blood Base Excess 15.4*H, Jeremiah Test Positive 06/15/20 05:00: White Blood Count 10.1, Red Blood Count 2.98L, Hemoglobin 8.6L, Hematocrit 28.0L , Mean Corpuscular Volume 94, Mean Corpuscular Hemoglobin 29.0, Mean Corpuscular Hemoglobin Concent 30.9L, Red Cell Distribution Width 15.6H, Platelet Count 200, Mean Platelet Volume 8.5, Neutrophils (%) (Auto) 80.8H, Lymphocytes (%) (Auto) 15.3L, Monocytes (%) (Auto) 1.3, Eosinophils (%) (Auto) 2.4, Basophils (%) (Auto) 0.2, Sodium Level 146H, Potassium Level 3.5, Chloride Level 107, Carbon Dioxide Level 35H, Anion Gap 4L, Blood Urea Nitrogen 42H, Creatinine 1.0, Estimat Glomerular Filtration Rate 58.9, Glucose Level 144H, Calcium Level 9.0 Current Medications Medications (Trade) Dose Ordered Sig/Zelda Route PRN Reason Start Time Stop Time Status Last Admin Dose Admin Acetaminophen (Tylenol) 650 mg Q4H PRN NG Temp >100.5 05/31/20 21:45 06/30/20 21:44 06/14/20 23:12 Acetaminophen (Tylenol) 650 mg Q6H PRN NG Mild Pain (Pain Scale 1-3) 06/06/20 18:00 07/06/20 17:59 06/13/20 23:10 Chlorhexidine Gluconate (Inna-Hex 2%) 1 applic DAILY@1999 TOPIC 05/30/20 20:00 08/28/20 19:59 06/14/20 20:00 Dextrose (Dextrose 50%) 25 ml Q30M PRN IV Hypoglycemia 06/05/20 10:45 09/03/20 10:44 Dextrose (Dextrose 50%) 50 ml Q30M PRN IV Hypoglycemia 06/05/20 10:45 09/03/20 10:44 Docusate Sodium (Colace) 100 mg Q12HR GT 06/07/20 21:00 07/07/20 20:59 06/15/20 08:38 Enoxaparin Sodium (Lovenox) 40 mg DAILY SUBQ 05/30/20 10:00 08/28/20 09:59 06/08/20 09:08 Fentanyl Citrate 250 ml @ 1 mls/hr Q24H IV 06/13/20 01:15 06/18/20 01:14 06/14/20 03:00 Insulin Aspart (NovoLOG) EVERY 6 HOURS SUBQ 06/07/20 00:00 09/03/20 11:59 06/15/20 05:35 Insulin Aspart (NovoLOG) 23 units EVERY 6 HOURS SUBQ 06/13/20 12:00 09/04/20 08:59 06/15/20 05:36 Methylprednisolone Sodium Succinate (Solu-MEDROL) 20 mg DAILY IVP 06/15/20 09:00 09/13/20 08:59 06/15/20 08:38 Midazolam HCl 100 mg/Sodium Chloride 200 ml @ 0 mls/hr Q24H PRN IV sedation 06/12/20 16:30 06/17/20 16:29 06/14/20 10:20 Midodrine (Pro-Amatine) 10 mg Q8HR ORAL 06/14/20 14:00 09/12/20 13:59 06/15/20 05:49 Pantoprazole (Protonix) 40 mg Q12HR IVP 06/13/20 21:00 07/03/20 08:59 06/15/20 08:38 Piperacillin Sod/ Tazobactam Sod 3.375 gm/Sodium Chloride 110 ml @ 27.5 mls/hr Q8HR IVPB 06/14/20 22:00 06/21/20 21:59 06/15/20 05:49 Polyethylene Glycol (Miralax) 17 gm BEDTIME GT 06/07/20 21:00 07/07/20 20:59 06/14/20 20:40 Sodium Chloride 1,000 ml @ 50 mls/hr Q20H IV 06/06/20 08:00 07/06/20 07:59 06/14/20 15:57 Assessment/Plan Assessment/Plan 1. COVID-19 pneumonia -Intubated 05/28/20 - We will continue broad-spectrum antibiotics. - On solumedrol -On Rocephin -Continue monitoring SaO2 and keep it >92% -Continue PEEP 10->8; - Peak airway pressures high; approx 60 now - FiO2 100% -> 90 ->80->60%; -will continue OGT feeding -Continue sedation -Need to keep patient completely sedated. 2. Hyponatremia -Per primary MD 3. Elevated inflammatory markers - has high D dimer; Lovenox on hold due to hematuria 4. Febrile today Javier Nava MD Jun 15, 2020 09:15
--- NOTE | 2020-06-15 10:04 | NUR ---
NURSE NOTES: Pt. in bed, sedated but when calling her name pt. is trying to open her eyes. No sign of distress. ETT in placed 7.5/23cm. with vent setting AC15/VT600/Fi O2 at 40%/P8. No grimacing noted. NGT in placed at left nares patent/intact running Vital AF at 60cc/hr. PICC line at right upper arm with 2 lumen patent/intact running Fentanyl 70mcg/hr and Versed 4mg/hr. F/C in placed patent/intact draining gross hematuria. Bed in low position, locked. Call light within reach. Will cont. to monitor.
--- NOTE | 2020-06-15 10:28 | General Progress Note ---
Subjective Constitutional: Reports: weakness Allergies: Coded Allergies: No Known Allergies (Unverified , 05/28/20) All Systems: reviewed and negative except above Subjective intubated sedated ng in icu Objective Last 24 Hour Vital Signs Date Time Temp Pulse Resp B/P (MAP) Pulse Ox O2 Delivery O2 Flow Rate FiO2 06/15/20 10:00 20 113/63 Endotracheal Tube 40 06/15/20 10:00 20 Endotracheal Tube 40 06/15/20 10:00 93 20 113/63 (80) 92 06/15/20 09:00 86 16 108/59 (75) 95 06/15/20 09:00 16 108/59 Endotracheal Tube 40 06/15/20 09:00 16 Endotracheal Tube 40 06/15/20 08:00 22 112/61 Endotracheal Tube 40 06/15/20 08:00 16 Endotracheal Tube 40 06/15/20 08:00 40 06/15/20 08:00 99.8 95 22 112/61 (78) 95 06/15/20 07:35 83 17 60 06/15/20 07:00 19 106/62 Mechanical Ventilator 40 06/15/20 07:00 19 Mechanical Ventilator 40 06/15/20 07:00 83 19 106/62 (77) 96 06/15/20 06:30 92 19 06/15/20 06:00 92 19 112/60 (77) 95 06/15/20 06:00 19 112/60 Mechanical Ventilator 40 06/15/20 06:00 19 Mechanical Ventilator 40 06/15/20 05:00 20 108/57 Mechanical Ventilator 40 06/15/20 05:00 20 Mechanical Ventilator 40 06/15/20 05:00 94 20 108/57 (74) 94 06/15/20 04:00 98.7 88 15 113/65 (81) 95 06/15/20 04:00 40 06/15/20 04:00 Mechanical Ventilator Mechanical Ventilator 06/15/20 04:00 15 113/65 Mechanical Ventilator 40 06/15/20 04:00 15 Mechanical Ventilator 40 06/15/20 04:00 99 06/15/20 03:45 97 21 113/62 (79) 94 06/15/20 03:45 21 113/62 Mechanical Ventilator 40 06/15/20 03:45 21 Mechanical Ventilator 40 06/15/20 03:20 91 20 60 06/15/20 03:00 93 18 107/63 (78) 94 06/15/20 03:00 18 107/63 Mechanical Ventilator 40 06/15/20 03:00 18 Mechanical Ventilator 40 06/15/20 02:00 90 17 119/62 (81) 96 06/15/20 02:00 17 119/62 Mechanical Ventilator 40 06/15/20 02:00 17 Mechanical Ventilator 40 06/15/20 01:15 15 107/60 Mechanical Ventilator 40 06/15/20 01:00 13 109/63 Mechanical Ventilator 40 06/15/20 01:00 13 Mechanical Ventilator 40 06/15/20 01:00 83 13 109/63 (78) 96 06/15/20 00:00 18 103/60 Mechanical Ventilator 40 06/15/20 00:00 18 Mechanical Ventilator 40 06/15/20 00:00 100.8 82 18 103/60 (74) 96 06/15/20 00:00 Mechanical Ventilator Mechanical Ventilator 06/15/20 00:00 110 06/15/20 00:00 40 06/14/20 23:42 101.0 06/14/20 23:00 86 6 109/64 (79) 96 06/14/20 23:00 15 109/64 Mechanical Ventilator 40 06/14/20 23:00 15 Mechanical Ventilator 40 06/14/20 23:00 85 20 60 06/14/20 22:00 91 19 106/61 (76) 96 06/14/20 22:00 19 106/61 Mechanical Ventilator 60 06/14/20 22:00 19 Mechanical Ventilator 60 06/14/20 21:00 17 100/62 Mechanical Ventilator 60 06/14/20 21:00 17 Mechanical Ventilator 60 06/14/20 21:00 95 17 100/62 (75) 96 06/14/20 20:00 100.6 106 16 112/61 (78) 95 06/14/20 20:00 60 06/14/20 20:00 Mechanical Ventilator Mechanical Ventilator 06/14/20 20:00 15 112/61 Mechanical Ventilator 60 06/14/20 20:00 16 Mechanical Ventilator 60 06/14/20 20:00 98 06/14/20 19:20 103 18 60 06/14/20 19:00 15 108/65 Mechanical Ventilator 60 06/14/20 19:00 15 Mechanical Ventilator 60 06/14/20 19:00 93 0 100/59 (73) 97 06/14/20 18:30 98 15 102/60 (74) 97 06/14/20 18:22 102.2 06/14/20 18:00 98 15 104/66 (79) 96 06/14/20 18:00 100 15 104/66 (79) 98 06/14/20 18:00 15 104/66 Mechanical Ventilator 60 06/14/20 18:00 15 Mechanical Ventilator 60 06/14/20 17:30 95 16 95/57 (70) 97 06/14/20 17:00 103 3 99/59 (72) 96 06/14/20 17:00 15 102/59 Mechanical Ventilator 60 06/14/20 17:00 15 Mechanical Ventilator 60 06/14/20 17:00 99 17 102/59 (73) 96 06/14/20 16:30 106 15 99/51 (67) 95 06/14/20 16:00 110 15 97/53 (68) 95 06/14/20 16:00 Mechanical Ventilator Mechanical Ventilator 06/14/20 16:00 109 16 97/53 (68) 93 06/14/20 16:00 20 112/54 Mechanical Ventilator 60 06/14/20 16:00 15 Mechanical Ventilator 60 06/14/20 16:00 113 06/14/20 16:00 60 06/14/20 16:00 101.2 06/14/20 15:45 112 19 113/55 (74) 97 06/14/20 15:30 118 22 115/62 (79) 97 06/14/20 15:20 108 19 60 06/14/20 15:00 113 19 113/65 (81) 96 06/14/20 15:00 20 111/57 Mechanical Ventilator 60 06/14/20 15:00 20 Mechanical Ventilator 60 06/14/20 14:30 117 20 114/55 (74) 96 06/14/20 14:15 121 20 116/56 (76) 95 06/14/20 14:00 130 23 116/63 (80) 95 06/14/20 14:00 21 116/56 Mechanical Ventilator 60 06/14/20 14:00 21 Mechanical Ventilator 60 06/14/20 13:59 100.2 06/14/20 13:45 131 29 130/72 (91) 92 06/14/20 13:31 126 24 114/66 (82) 94 06/14/20 13:30 127 24 114/66 (82) 95 06/14/20 13:15 123 31 114/66 (82) 90 06/14/20 13:00 24 114/66 Mechanical Ventilator 60 06/14/20 13:00 24 Mechanical Ventilator 60 06/14/20 13:00 132 29 114/66 (82) 92 06/14/20 12:45 119 22 105/63 (77) 95 06/14/20 12:30 116 21 104/62 (76) 95 06/14/20 12:15 114 19 98/63 (75) 97 06/14/20 12:00 116 06/14/20 12:00 100.3 110 18 100/57 (71) 95 06/14/20 12:00 20 98/63 Mechanical Ventilator 60 06/14/20 12:00 20 Mechanical Ventilator 60 06/14/20 12:00 60 06/14/20 12:00 Mechanical Ventilator Mechanical Ventilator 06/14/20 11:45 113 19 101/58 (72) 94 06/14/20 11:38 112 19 60 06/14/20 11:30 110 19 98/55 (69) 94 06/14/20 11:15 109 17 97/56 (70) 94 06/14/20 11:00 18 97/56 Mechanical Ventilator 60 06/14/20 11:00 18 Mechanical Ventilator 60 06/14/20 11:00 109 17 91/56 (68) 94 06/14/20 10:47 109 17 60 06/14/20 10:45 110 17 98/56 (70) 94 06/14/20 10:30 102.3 112 18 95/53 (67) 94 Intake and Output 06/14/20 06/15/20 19:00 07:00 Intake Total 1488.5 ml 1478.50 ml Output Total 1225 ml 1680 ml Balance 263.5 ml -201.50 ml IV Total 1068.5 ml 758.50 ml Tube Feeding 420 ml 720 ml Output Urine Total 1225 ml 1680 ml # Bowel Movements 1 Laboratory Tests 06/14/20 13:19: Arterial Blood pH 7.302L, Arterial Blood Partial Pressure CO2 89.7*H, Arterial Blood Partial Pressure O2 116.7H, Arterial Blood HCO3 43.3*H, Arterial Blood Oxygen Saturation 97.8, Arterial Blood Base Excess 15.4*H, Jeremiah Test Positive 06/15/20 05:00: White Blood Count 10.1, Red Blood Count 2.98L, Hemoglobin 8.6L, Hematocrit 28.0L , Mean Corpuscular Volume 94, Mean Corpuscular Hemoglobin 29.0, Mean Corpuscular Hemoglobin Concent 30.9L, Red Cell Distribution Width 15.6H, Platelet Count 200, Mean Platelet Volume 8.5, Neutrophils (%) (Auto) 80.8H, Lymphocytes (%) (Auto) 15.3L, Monocytes (%) (Auto) 1.3, Eosinophils (%) (Auto) 2.4, Basophils (%) (Auto) 0.2, Sodium Level 146H, Potassium Level 3.5, Chloride Level 107, Carbon Dioxide Level 35H, Anion Gap 4L, Blood Urea Nitrogen 42H, Creatinine 1.0, Estimat Glomerular Filtration Rate 58.9, Glucose Level 144H, Calcium Level 9.0 06/15/20 09:37: Arterial Blood pH 7.413, Arterial Blood Partial Pressure CO2 55.0H, Arterial Blood Partial Pressure O2 68.6L, Arterial Blood HCO3 34.3H, Arterial Blood Oxygen Saturation 93.4L, Arterial Blood Base Excess 8.5H, Jeremiah Test Positive Height (Feet): 5 Height (Inches): 5.00 Weight (Pounds): 308 General Appearance: lethargic EENT: normal ENT inspection Neck: normal alignment Cardiovascular: normal peripheral pulses, normal rate, regular rhythm Respiratory/Chest: chest wall non-tender, lungs clear, normal breath sounds Abdomen: normal bowel sounds, non tender, soft Extremities: normal inspection Edema: no edema noted Arm (L), no edema noted Arm (R), no edema noted Leg (L), no edema noted Leg (R), no edema noted Pedal (L), no edema noted Pedal (R), no edema noted Generalized Neurologic: motor weakness Skin: normal pigmentation, warm/dry Assessment/Plan Problem List: (1) Hypoxia ICD Codes: R09.02 - Hypoxemia SNOMED: 404479319 (2) Respiratory failure ICD Codes: J96.90 - Respiratory failure, unspecified, unspecified whether with hypoxia or hypercapnia SNOMED: 370796501 (3) Respiratory distress ICD Codes: R06.03 - Acute respiratory distress; J12.82 - Pneumonia due to coronavirus disease 2019 SNOMED: 213341869 (4) Pneumonia due to COVID-19 virus ICD Codes: U07.1 - COVID-19; J12.82 - Pneumonia due to coronavirus disease 2019 SNOMED: 124422922816012085 Status: unchanged Assessment/Plan: vent abx id pulm f/u cbc bmp am Tank Del Cid DO Jun 15, 2020 10:28
--- NOTE | 2020-06-15 11:40 | NUR ---
NURSE NOTES: Pt. turned and repositioned. Suctioned by RT.
--- NOTE | 2020-06-15 13:30 | NUR ---
NURSE NOTES: Pt. no s/sx of distress noted. Bilateral soft wrist restrains in placed +CMS.
--- NOTE | 2020-06-15 15:20 | NUR ---
NURSE NOTES: Pt. HOB elevated. No n/v noted. NGT in placed patent/intact at left nares.
--- NOTE | 2020-06-15 16:17 | Nephrology Progress Note ---
Assessment/Plan Problem List: (1) DEVENDRA (acute kidney injury) (2) Morbid obesity (3) Diabetes mellitus out of control (4) Pneumonia due to COVID-19 virus (5) Respiratory failure Assessment Acute renal failure Obstructive uropathy, clogged Lennon Respiratory failure COVID-19 pneumonia Morbid obesity Plan June 15: Labs reviewed. Serum creatinine 1. Stable from renal standpoint to view. Continue per consultants. June 14: Labs reviewed. Full code. Serum creatinine of 3.5 down to 1.4. Low potassium addressed. Continue per current treatment plan. Continue to monitor renal parameters. Midodrine started. Albumin bolus given. Previously: DC Lasix drip Increase Protonix dose Monitor renal parameters, electrolytes Per orders Subjective ROS Limited/Unobtainable: Yes Objective Objective Last 24 Hour Vital Signs Date Time Temp Pulse Resp B/P (MAP) Pulse Ox O2 Delivery O2 Flow Rate FiO2 06/15/20 15:43 128 25 60 06/15/20 15:30 28 140/69 Endotracheal Tube 40 06/15/20 15:00 115 25 124/81 (95) 97 06/15/20 15:00 25 124/81 Endotracheal Tube 40 06/15/20 15:00 25 Endotracheal Tube 40 06/15/20 14:00 114 25 119/75 (90) 95 06/15/20 14:00 25 119/75 Endotracheal Tube 40 06/15/20 14:00 25 Endotracheal Tube 40 06/15/20 13:00 22 125/74 Endotracheal Tube 40 06/15/20 13:00 22 Endotracheal Tube 40 06/15/20 13:00 100 22 125/74 (91) 97 06/15/20 12:13 102 06/15/20 12:00 103 27 60 06/15/20 12:00 20 126/71 Endotracheal Tube 40 06/15/20 12:00 20 Endotracheal Tube 40 06/15/20 12:00 Mechanical Ventilator Mechanical Ventilator 06/15/20 12:00 40 06/15/20 12:00 98.8 103 20 126/71 (89) 98 06/15/20 11:00 96 22 116/71 (86) 92 06/15/20 11:00 22 116/71 Endotracheal Tube 40 06/15/20 11:00 22 Endotracheal Tube 40 06/15/20 10:00 20 113/63 Endotracheal Tube 40 06/15/20 10:00 20 Endotracheal Tube 40 06/15/20 10:00 93 20 113/63 (80) 92 06/15/20 09:00 86 16 108/59 (75) 95 06/15/20 09:00 16 108/59 Endotracheal Tube 40 06/15/20 09:00 16 Endotracheal Tube 40 06/15/20 08:00 Mechanical Ventilator Mechanical Ventilator 06/15/20 08:00 22 112/61 Endotracheal Tube 40 06/15/20 08:00 16 Endotracheal Tube 40 06/15/20 08:00 40 06/15/20 08:00 99.8 95 22 112/61 (78) 95 06/15/20 07:35 83 17 60 06/15/20 07:22 88 06/15/20 07:00 19 106/62 Mechanical Ventilator 40 06/15/20 07:00 19 Mechanical Ventilator 40 06/15/20 07:00 83 19 106/62 (77) 96 06/15/20 06:30 92 19 06/15/20 06:00 92 19 112/60 (77) 95 06/15/20 06:00 19 112/60 Mechanical Ventilator 40 06/15/20 06:00 19 Mechanical Ventilator 40 06/15/20 05:00 20 108/57 Mechanical Ventilator 40 06/15/20 05:00 20 Mechanical Ventilator 40 06/15/20 05:00 94 20 108/57 (74) 94 06/15/20 04:00 98.7 88 15 113/65 (81) 95 06/15/20 04:00 40 06/15/20 04:00 Mechanical Ventilator Mechanical Ventilator 06/15/20 04:00 15 113/65 Mechanical Ventilator 40 06/15/20 04:00 15 Mechanical Ventilator 40 06/15/20 04:00 99 06/15/20 03:45 97 21 113/62 (79) 94 06/15/20 03:45 21 113/62 Mechanical Ventilator 40 06/15/20 03:45 21 Mechanical Ventilator 40 06/15/20 03:20 91 20 60 06/15/20 03:00 93 18 107/63 (78) 94 06/15/20 03:00 18 107/63 Mechanical Ventilator 40 06/15/20 03:00 18 Mechanical Ventilator 40 06/15/20 02:00 90 17 119/62 (81) 96 06/15/20 02:00 17 119/62 Mechanical Ventilator 40 06/15/20 02:00 17 Mechanical Ventilator 40 06/15/20 01:15 15 107/60 Mechanical Ventilator 40 06/15/20 01:00 13 109/63 Mechanical Ventilator 40 06/15/20 01:00 13 Mechanical Ventilator 40 06/15/20 01:00 83 13 109/63 (78) 96 06/15/20 00:00 18 103/60 Mechanical Ventilator 40 06/15/20 00:00 18 Mechanical Ventilator 40 06/15/20 00:00 100.8 82 18 103/60 (74) 96 06/15/20 00:00 Mechanical Ventilator Mechanical Ventilator 06/15/20 00:00 110 06/15/20 00:00 40 06/14/20 23:42 101.0 06/14/20 23:00 86 6 109/64 (79) 96 06/14/20 23:00 15 109/64 Mechanical Ventilator 40 06/14/20 23:00 15 Mechanical Ventilator 40 06/14/20 23:00 85 20 60 06/14/20 22:00 91 19 106/61 (76) 96 06/14/20 22:00 19 106/61 Mechanical Ventilator 60 06/14/20 22:00 19 Mechanical Ventilator 60 06/14/20 21:00 17 100/62 Mechanical Ventilator 60 06/14/20 21:00 17 Mechanical Ventilator 60 06/14/20 21:00 95 17 100/62 (75) 96 06/14/20 20:00 100.6 106 16 112/61 (78) 95 06/14/20 20:00 60 06/14/20 20:00 Mechanical Ventilator Mechanical Ventilator 06/14/20 20:00 15 112/61 Mechanical Ventilator 60 06/14/20 20:00 16 Mechanical Ventilator 60 06/14/20 20:00 98 06/14/20 19:20 103 18 60 06/14/20 19:00 15 108/65 Mechanical Ventilator 60 06/14/20 19:00 15 Mechanical Ventilator 60 06/14/20 19:00 93 0 100/59 (73) 97 06/14/20 18:30 98 15 102/60 (74) 97 06/14/20 18:22 102.2 06/14/20 18:00 98 15 104/66 (79) 96 06/14/20 18:00 100 15 104/66 (79) 98 06/14/20 18:00 15 104/66 Mechanical Ventilator 60 06/14/20 18:00 15 Mechanical Ventilator 60 06/14/20 17:30 95 16 95/57 (70) 97 06/14/20 17:00 103 3 99/59 (72) 96 06/14/20 17:00 15 102/59 Mechanical Ventilator 60 06/14/20 17:00 15 Mechanical Ventilator 60 06/14/20 17:00 99 17 102/59 (73) 96 06/14/20 16:30 106 15 99/51 (67) 95 Intake and Output 06/14/20 06/15/20 19:00 07:00 Intake Total 1488.5 ml 1478.50 ml Output Total 1225 ml 1680 ml Balance 263.5 ml -201.50 ml IV Total 1068.5 ml 758.50 ml Tube Feeding 420 ml 720 ml Output Urine Total 1225 ml 1680 ml # Bowel Movements 1 Current Medications Medications (Trade) Dose Ordered Sig/Zelda Route PRN Reason Start Time Stop Time Status Last Admin Dose Admin Acetaminophen (Tylenol) 650 mg Q4H PRN NG Temp >100.5 05/31/20 21:45 06/30/20 21:44 06/14/20 23:12 Acetaminophen (Tylenol) 650 mg Q6H PRN NG Mild Pain (Pain Scale 1-3) 06/06/20 18:00 07/06/20 17:59 06/13/20 23:10 Chlorhexidine Gluconate (Inna-Hex 2%) 1 applic DAILY@2000 TOPIC 05/30/20 20:00 08/28/20 19:59 06/14/20 20:00 Dextrose (Dextrose 50%) 25 ml Q30M PRN IV Hypoglycemia 06/05/20 10:45 09/03/20 10:44 Dextrose (Dextrose 50%) 50 ml Q30M PRN IV Hypoglycemia 06/05/20 10:45 09/03/20 10:44 Docusate Sodium (Colace) 100 mg Q12HR GT 06/07/20 21:00 07/07/20 20:59 06/15/20 08:38 Enoxaparin Sodium (Lovenox) 40 mg DAILY SUBQ 05/30/20 10:00 08/28/20 09:59 06/08/20 09:08 Fentanyl Citrate 250 ml @ 1 mls/hr Q24H IV 06/13/20 01:15 06/18/20 01:14 06/15/20 15:30 Insulin Aspart (NovoLOG) EVERY 6 HOURS SUBQ 06/07/20 00:00 09/03/20 11:59 06/15/20 05:35 Insulin Aspart (NovoLOG) 23 units EVERY 6 HOURS SUBQ 06/13/20 12:00 09/04/20 08:59 06/15/20 12:28 Methylprednisolone Sodium Succinate (Solu-MEDROL) 20 mg DAILY IVP 06/15/20 09:00 09/13/20 08:59 06/15/20 08:38 Midazolam HCl 100 mg/Sodium Chloride 200 ml @ 0 mls/hr Q24H PRN IV sedation 06/12/20 16:30 06/17/20 16:29 06/14/20 10:20 Midodrine (Pro-Amatine) 10 mg Q8HR ORAL 06/14/20 14:00 09/12/20 13:59 06/15/20 13:46 Pantoprazole (Protonix) 40 mg Q12HR IVP 06/13/20 21:00 07/03/20 08:59 06/15/20 08:38 Piperacillin Sod/ Tazobactam Sod 3.375 gm/Sodium Chloride 110 ml @ 27.5 mls/hr Q8HR IVPB 06/14/20 22:00 06/21/20 21:59 06/15/20 13:46 Polyethylene Glycol (Miralax) 17 gm BEDTIME GT 06/07/20 21:00 07/07/20 20:59 06/14/20 20:40 Sodium Chloride 1,000 ml @ 50 mls/hr Q20H IV 06/06/20 08:00 07/06/20 07:59 06/15/20 12:59 Laboratory Tests 06/15/20 05:00: White Blood Count 10.1, Red Blood Count 2.98L, Hemoglobin 8.6L, Hematocrit 28.0L , Mean Corpuscular Volume 94, Mean Corpuscular Hemoglobin 29.0, Mean Corpuscular Hemoglobin Concent 30.9L, Red Cell Distribution Width 15.6H, Platelet Count 200, Mean Platelet Volume 8.5, Neutrophils (%) (Auto) 80.8H, Lymphocytes (%) (Auto) 1 5.3L, Monocytes (%) (Auto) 1.3, Eosinophils (%) (Auto) 2.4, Basophils (%) (Auto) 0.2, Sodium Level 146H, Potassium Level 3.5, Chloride Level 107, Carbon Dioxide Level 35H, Anion Gap 4L, Blood Urea Nitrogen 42H, Creatinine 1.0, Estimat Glomerular Filtration Rate 58.9, Glucose Level 144H, Calcium Level 9.0 06/15/20 09:37: Arterial Blood pH 7.413, Arterial Blood Partial Pressure CO2 55.0H, Arterial Blood Partial Pressure O2 68.6L, Arterial Blood HCO3 34.3H, Arterial Blood Oxygen Saturation 93.4L, Arterial Blood Base Excess 8.5H, Jeremiah Test Positive Height (Feet): 5 Height (Inches): 5.00 Weight (Pounds): 308 General Appearance: no apparent distress EENT: other - Intubated on ventilator Cardiovascular: tachycardia Respiratory/Chest: decreased breath sounds Abdomen: distended Rigo Tyler MD Jun 15, 2020 16:17
[2020-06-15] MEDS: Midazolam HCl 50mg/10ml vial 100 MG in NS 180 ML IV PRN (16:35)
--- NOTE | 2020-06-15 17:05 | NUR ---
NURSE NOTES: Pt. remain stable. Occasionally eyes open. No s/sx of distress noted. No grimacing noted.
--- NOTE | 2020-06-15 17:08 | Surgery Progress Note ---
Surgery Progress Note Subjective Additional Comments sedated but when calling her name pt. is trying to open her eyes. No sign of distress. ETT in placed 7.5/23cm. with vent setting AC15/VT600/Fi O2 at 40%/P8. Objective Last 24 Hour Vital Signs Date Time Temp Pulse Resp B/P (MAP) Pulse Ox O2 Delivery O2 Flow Rate FiO2 06/15/20 16:35 26 Endotracheal Tube 40 06/15/20 16:00 115 24 113/64 (80) 96 06/15/20 15:43 128 25 60 06/15/20 15:30 28 140/69 Endotracheal Tube 40 06/15/20 15:00 115 25 124/81 (95) 97 06/15/20 15:00 25 124/81 Endotracheal Tube 40 06/15/20 15:00 25 Endotracheal Tube 40 06/15/20 14:00 114 25 119/75 (90) 95 06/15/20 14:00 25 119/75 Endotracheal Tube 40 06/15/20 14:00 25 Endotracheal Tube 40 06/15/20 13:00 22 125/74 Endotracheal Tube 40 06/15/20 13:00 22 Endotracheal Tube 40 06/15/20 13:00 100 22 125/74 (91) 97 06/15/20 12:13 102 06/15/20 12:00 103 27 60 06/15/20 12:00 20 126/71 Endotracheal Tube 40 06/15/20 12:00 20 Endotracheal Tube 40 06/15/20 12:00 Mechanical Ventilator Mechanical Ventilator 06/15/20 12:00 40 06/15/20 12:00 98.8 103 20 126/71 (89) 98 06/15/20 11:00 96 22 116/71 (86) 92 06/15/20 11:00 22 116/71 Endotracheal Tube 40 06/15/20 11:00 22 Endotracheal Tube 40 06/15/20 10:00 20 113/63 Endotracheal Tube 40 06/15/20 10:00 20 Endotracheal Tube 40 06/15/20 10:00 93 20 113/63 (80) 92 06/15/20 09:00 86 16 108/59 (75) 95 06/15/20 09:00 16 108/59 Endotracheal Tube 40 06/15/20 09:00 16 Endotracheal Tube 40 06/15/20 08:00 Mechanical Ventilator Mechanical Ventilator 06/15/20 08:00 22 112/61 Endotracheal Tube 40 06/15/20 08:00 16 Endotracheal Tube 40 06/15/20 08:00 40 06/15/20 08:00 99.8 95 22 112/61 (78) 95 06/15/20 07:35 83 17 60 06/15/20 07:22 88 06/15/20 07:00 19 106/62 Mechanical Ventilator 40 06/15/20 07:00 19 Mechanical Ventilator 40 06/15/20 07:00 83 19 106/62 (77) 96 06/15/20 06:30 92 19 06/15/20 06:00 92 19 112/60 (77) 95 06/15/20 06:00 19 112/60 Mechanical Ventilator 40 06/15/20 06:00 19 Mechanical Ventilator 40 06/15/20 05:00 20 108/57 Mechanical Ventilator 40 06/15/20 05:00 20 Mechanical Ventilator 40 06/15/20 05:00 94 20 108/57 (74) 94 06/15/20 04:00 98.7 88 15 113/65 (81) 95 06/15/20 04:00 40 06/15/20 04:00 Mechanical Ventilator Mechanical Ventilator 06/15/20 04:00 15 113/65 Mechanical Ventilator 40 06/15/20 04:00 15 Mechanical Ventilator 40 06/15/20 04:00 99 06/15/20 03:45 97 21 113/62 (79) 94 06/15/20 03:45 21 113/62 Mechanical Ventilator 40 06/15/20 03:45 21 Mechanical Ventilator 40 06/15/20 03:20 91 20 60 06/15/20 03:00 93 18 107/63 (78) 94 06/15/20 03:00 18 107/63 Mechanical Ventilator 40 06/15/20 03:00 18 Mechanical Ventilator 40 06/15/20 02:00 90 17 119/62 (81) 96 06/15/20 02:00 17 119/62 Mechanical Ventilator 40 06/15/20 02:00 17 Mechanical Ventilator 40 06/15/20 01:15 15 107/60 Mechanical Ventilator 40 06/15/20 01:00 13 109/63 Mechanical Ventilator 40 06/15/20 01:00 13 Mechanical Ventilator 40 06/15/20 01:00 83 13 109/63 (78) 96 06/15/20 00:00 18 103/60 Mechanical Ventilator 40 06/15/20 00:00 18 Mechanical Ventilator 40 06/15/20 00:00 100.8 82 18 103/60 (74) 96 06/15/20 00:00 Mechanical Ventilator Mechanical Ventilator 06/15/20 00:00 110 06/15/20 00:00 40 06/14/20 23:42 101.0 06/14/20 23:00 86 6 109/64 (79) 96 06/14/20 23:00 15 109/64 Mechanical Ventilator 40 06/14/20 23:00 15 Mechanical Ventilator 40 06/14/20 23:00 85 20 60 06/14/20 22:00 91 19 106/61 (76) 96 06/14/20 22:00 19 106/61 Mechanical Ventilator 60 06/14/20 22:00 19 Mechanical Ventilator 60 06/14/20 21:00 17 100/62 Mechanical Ventilator 60 06/14/20 21:00 17 Mechanical Ventilator 60 06/14/20 21:00 95 17 100/62 (75) 96 06/14/20 20:00 100.6 106 16 112/61 (78) 95 06/14/20 20:00 60 06/14/20 20:00 Mechanical Ventilator Mechanical Ventilator 06/14/20 20:00 15 112/61 Mechanical Ventilator 60 06/14/20 20:00 16 Mechanical Ventilator 60 06/14/20 20:00 98 06/14/20 19:20 103 18 60 06/14/20 19:00 15 108/65 Mechanical Ventilator 60 06/14/20 19:00 15 Mechanical Ventilator 60 06/14/20 19:00 93 0 100/59 (73) 97 06/14/20 18:30 98 15 102/60 (74) 97 06/14/20 18:22 102.2 06/14/20 18:00 98 15 104/66 (79) 96 06/14/20 18:00 100 15 104/66 (79) 98 06/14/20 18:00 15 104/66 Mechanical Ventilator 60 06/14/20 18:00 15 Mechanical Ventilator 60 06/14/20 17:30 95 16 95/57 (70) 97 I&O Intake and Output 06/14/20 06/15/20 19:00 07:00 Intake Total 1488.5 ml 1478.50 ml Output Total 1225 ml 1680 ml Balance 263.5 ml -201.50 ml IV Total 1068.5 ml 758.50 ml Tube Feeding 420 ml 720 ml Output Urine Total 1225 ml 1680 ml # Bowel Movements 1 Dressing: saturated Cardiovascular: RSR Respiratory: decreased breath sounds Abdomen: non-tender, present bowel sounds Extremities: edema, no cyanosis Laboratory Tests Test 06/15/20 05:00 06/15/20 09:37 White Blood Count 10.1 K/UL (4.8-10.8) Red Blood Count 2.98 M/UL (4.20-5.40) L Hemoglobin 8.6 G/DL (12.0-16.0) L Hematocrit 28.0 % (37.0-47.0) L Mean Corpuscular Volume 94 FL (80-99) Mean Corpuscular Hemoglobin 29.0 PG (27.0-31.0) Mean Corpuscular Hemoglobin Concent 30.9 G/DL (32.0-36.0) L Red Cell Distribution Width 15.6 % (11.6-14.8) H Platelet Count 200 K/UL (150-450) Mean Platelet Volume 8.5 FL (6.5-10.1) Neutrophils (%) (Auto) 80.8 % (45.0-75.0) H Lymphocytes (%) (Auto) 15.3 % (20.0-45.0) L Monocytes (%) (Auto) 1.3 % (1.0-10.0) Eosinophils (%) (Auto) 2.4 % (0.0-3.0) Basophils (%) (Auto) 0.2 % (0.0-2.0) Sodium Level 146 MMOL/L (136-145) H Potassium Level 3.5 MMOL/L (3.5-5.1) Chloride Level 107 MMOL/L (98-107) Carbon Dioxide Level 35 MMOL/L (21-32) H Anion Gap 4 mmol/L (5-15) L Blood Urea Nitrogen 42 mg/dL (7-18) H Creatinine 1.0 MG/DL (0.55-1.30) Estimat Glomerular Filtration Rate 58.9 mL/min (>60) Glucose Level 144 MG/DL (74-106) H Calcium Level 9.0 MG/DL (8.5-10.1) Arterial Blood pH 7.413 (7.350-7.450) Arterial Blood Partial Pressure CO2 55.0 mmHg (35.0-45.0) H Arterial Blood Partial Pressure O2 68.6 mmHg (75.0-100.0) L Arterial Blood HCO3 34.3 mmol/L (22.0-26.0) H Arterial Blood Oxygen Saturation 93.4 % (95-100) L Arterial Blood Base Excess 8.5 (-2-2) H Jeremiah Test Positive Plan Problems: (1) Respiratory distress (2) Respiratory failure Assessment & Plan: 50-year-old female Covid positive respiratory insufficiency intubated on ventilatory support declining. Leukocytosis increase oxygen requirement. Vent settings per pulmonology reviewed identified and agree. Unfortunately further surgical invention at this time is not appropriate as patient is not a candidate and her current condition. Prognosis overall guarded. Tracheostomy can be considered in the future if recovering or shows improvement and requires unable to be weaned from ventilator support. Currently okay for nutritional optimization with NG tube. Will need significant monitoring for decubitus formation given patient's size and condition. Okay for air mattress tolerated. Turn every 2 hours as tolerated. Patient is otherwise critically ill and blood pressure labile. Will need to monitor closely.Bilateral infiltrates are again demonstrated. Stable tube and line positions. (3) Hypoxia (4) Pneumonia due to COVID-19 virus Assessment & Plan: ++ as per pulm and ID (5) Diabetes mellitus out of control Assessment & Plan: DAILY ESTIMATED NEEDS: Needs based on Critical care, obesity 11-14kcal/kg actual body wt (140kg) kcals/kg 8140-0761 total kcals 1.5-2.0g prot/kg IBW (64.5kg) g protein/kg 96-129 g total protein 25-30ml/kg abw (83kg) mL/kg 4017-7615 total fluid mLs NUTRITION DIAGNOSIS: Swallowing difficulty R/T respiratory failure as evidenced by pt orally intubated and sedated, on OGT feeds. CURRENT TF: Vital 1.2 goal of 60ml/hr ENTERAL NUTRITION RECOMMENDATIONS: Vital AF 1.2 @ 60ml/hr x 24 hrs to provide 1440ml, 1728kcal, 108g prot, 1168ml free water * Maintain current critical care and carb controlled TF formula of Vital AF * TF @ goal meeds 100% est kcal/prot needs * HOB over 30 degrees/ water flush per MD TF may be lowered to 55ml/hr for improved BG control while maintaining Kcal and pro needs. ADDITIONAL RECOMMENDATIONS: * Calibrated bedscale wt * Monitor Propofol rate, need for TF adjustment-> now off * Monitor BGs closely : now improved, on novolog q 6rs + NISS * Monitor lytes * Rec bowel regimen- now added Az Devine Jun 15, 2020 17:08
--- NOTE | 2020-06-15 19:10 | NUR ---
NURSE NOTES: Received patient from RAKEL Bernal. Pt is sedated. ST on the monitor. ETT 7.5, 23cm at the lip line. Ventilator Setting: AC 15 TV 600 FiO2 60% PEEP 8. NGT on the left nare in place running vital AF @60, tolerating well. Lennon in place ad draining well to gravity, gross hematuria noted. PICC LINDA in place, dressing dry and intact. Fentanyl @70mcg/hr, Versed @4mg/hr, NS @50ml/hr. Restraints bilateral wrists on. Skin intact per AMRN. Safety measures observed and no acute distress noted. Will continue to monitor. bed to lowest position and locked. call light within easy reach. side rails up x2. will continue plan of care.
--- NOTE | 2020-06-15 19:41 | NUR ---
NURSE HAND-OFF REPORT: Latest Vital Signs: Temperature 98.8 , Pulse 118 , B/P 108 /61 , Respiratory Rate 25 , O2 SAT 98 , Endotracheal Tube, O2 Flow Rate . Vital Sign Comment: [] EKG Rhythm: Sinus Tachycardia Rhythm change?: N MD Notified?: - MD Response: Latest Meyers Fall Score: 70 Fall Risk: High Risk Safety Measures: Call light Within Reach, Bed Alarm Zone 1, Side Rails Side Rails x2, Bed position Low and Locked. Fall Precautions: Yellow Socks Yellow Gown Door Sign Patient Fall Education Report given to Nhung De Souza RN.
[2020-06-15] MEDS: Dyna-Hex 2% Top Sol 2oz TOPIC SCH (20:00)
[2020-06-15] MEDS: Miralax 17gm pkt GT SCH (20:49)
[2020-06-15] MEDS: Acetaminophen 650mg/20.3ml NG PRN (22:30)
--- NOTE | 2020-06-15 22:30 | NUR ---
NURSE NOTES: Pt temp 102.7 by Axillary. Tylenol given and cooling measure started.
[2020-06-16] VITALS (29 sets, daily range): BP systolic 92–143; BP diastolic 50–86
--- NOTE | 2020-06-16 | NUR ---
NURSE NOTES: Found cooling machine. 103.8 by rectal.
--- NOTE | 2020-06-16 01:00 | NUR ---
NURSE NOTES: Temp decreases to 102.9 by rectal.
--- NOTE | 2020-06-16 02:00 | NUR ---
NURSE NOTES: AM care given. CHG bath done. Large BM noted. Turned and repositioned. Oral care provided.
--- NOTE | 2020-06-16 05:00 | NUR ---
NURSE NOTES: Temp down to 101.8 so far. Asymptomatic.
[2020-06-16] MEDS: NovoLOG Insulin Flexpen SUBQ SCH ×8 (06:00→18:30)
[2020-06-16] MEDS: Piperacillin/Tazobactam 3.375 GM in NS 110 ML IVPB SCH ×3 (06:15→21:07)
[2020-06-16] MEDS: Midodrine 10mg tab ORAL SCH ×3 (06:17→22:31)
--- NOTE | 2020-06-16 07:36 | Pulmonology Progress Note ---
Subjective ROS Limited/Unobtainable: Yes Interval Events: Remains intubated Constitutional: Reports: fever, other - T=[id number] HEENT: Repors: no symptoms Respiratory: Reports: no symptoms Cardiovascular: Reports: no symptoms Gastrointestinal/Abdominal: Reports: no symptoms Genitourinary: Reports: no symptoms Allergies: Coded Allergies: No Known Allergies (Unverified , 05/28/20) All Systems: reviewed and negative except above Objective Last 24 Hour Vital Signs Date Time Temp Pulse Resp B/P (MAP) Pulse Ox O2 Delivery O2 Flow Rate FiO2 06/16/20 06:30 95 21 06/16/20 06:00 101.6 96 16 109/56 (73) 96 06/16/20 05:00 101.8 90 20 99/51 (67) 97 06/16/20 04:00 95 06/16/20 04:00 95 20 108/53 (71) 97 06/16/20 04:00 30 06/16/20 04:00 Mechanical Ventilator Mechanical Ventilator 06/16/20 03:30 102 20 60 06/16/20 03:00 16 105/53 Mechanical Ventilator 30 06/16/20 03:00 16 Mechanical Ventilator 40 06/16/20 03:00 102.2 94 17 105/53 (70) 96 06/16/20 02:00 91 18 92/55 (67) 96 06/16/20 02:00 18 92/55 Mechanical Ventilator 30 06/16/20 02:00 18 Mechanical Ventilator 40 06/16/20 01:00 12 95/54 Mechanical Ventilator 30 06/16/20 01:00 12 Mechanical Ventilator 40 06/16/20 01:00 102 12 95/54 (68) 98 06/16/20 00:00 30 06/16/20 00:00 Mechanical Ventilator Mechanical Ventilator 06/16/20 00:00 22 107/61 Mechanical Ventilator 30 06/16/20 00:00 22 Mechanical Ventilator 30 06/16/20 00:00 95 06/16/20 00:00 103.8 95 22 107/61 (76) 97 06/15/20 23:30 98 25 60 06/15/20 23:00 104 23 112/65 (81) 97 06/15/20 23:00 23 112/65 Mechanical Ventilator 30 06/15/20 23:00 23 Mechanical Ventilator 40 06/15/20 23:00 102.7 06/15/20 22:00 26 113/65 Mechanical Ventilator 30 06/15/20 22:00 26 Mechanical Ventilator 40 06/15/20 22:00 102.7 111 26 113/65 (81) 96 06/15/20 21:00 26 116/63 Mechanical Ventilator 40 06/15/20 21:00 26 Mechanical Ventilator 40 06/15/20 21:00 110 24 114/70 (85) 96 06/15/20 20:00 120 26 110/64 (79) 97 06/15/20 20:00 112 06/15/20 20:00 23 112/62 Mechanical Ventilator 40 06/15/20 20:00 23 Mechanical Ventilator 40 06/15/20 20:00 30 06/15/20 20:00 Mechanical Ventilator Mechanical Ventilator 06/15/20 19:30 118 28 60 06/15/20 19:00 24 114/74 Mechanical Ventilator 40 06/15/20 19:00 24 Mechanical Ventilator 40 06/15/20 19:00 118 25 108/61 (77) 98 06/15/20 18:00 109 22 110/58 (75) 98 06/15/20 18:00 22 110/58 Endotracheal Tube 40 06/15/20 18:00 24 Endotracheal Tube 40 06/15/20 17:00 116 24 115/65 (82) 97 06/15/20 17:00 24 115/65 Endotracheal Tube 40 06/15/20 17:00 24 Endotracheal Tube 40 06/15/20 16:35 26 Endotracheal Tube 40 06/15/20 16:00 Mechanical Ventilator Mechanical Ventilator 06/15/20 16:00 40 06/15/20 16:00 24 113/64 Endotracheal Tube 40 06/15/20 16:00 24 Endotracheal Tube 40 06/15/20 16:00 115 24 113/64 (80) 96 06/15/20 15:43 128 25 60 06/15/20 15:30 28 140/69 Endotracheal Tube 40 06/15/20 15:20 118 06/15/20 15:00 115 25 124/81 (95) 97 06/15/20 15:00 25 124/81 Endotracheal Tube 40 06/15/20 15:00 25 Endotracheal Tube 40 06/15/20 14:00 114 25 119/75 (90) 95 06/15/20 14:00 25 119/75 Endotracheal Tube 40 06/15/20 14:00 25 Endotracheal Tube 40 06/15/20 13:00 22 125/74 Endotracheal Tube 40 06/15/20 13:00 22 Endotracheal Tube 40 06/15/20 13:00 100 22 125/74 (91) 97 06/15/20 12:13 102 06/15/20 12:00 103 27 60 06/15/20 12:00 20 126/71 Endotracheal Tube 40 06/15/20 12:00 20 Endotracheal Tube 40 06/15/20 12:00 Mechanical Ventilator Mechanical Ventilator 06/15/20 12:00 40 06/15/20 12:00 98.8 103 20 126/71 (89) 98 06/15/20 11:00 96 22 116/71 (86) 92 06/15/20 11:00 22 116/71 Endotracheal Tube 40 06/15/20 11:00 22 Endotracheal Tube 40 06/15/20 10:00 20 113/63 Endotracheal Tube 40 06/15/20 10:00 20 Endotracheal Tube 40 06/15/20 10:00 93 20 113/63 (80) 92 06/15/20 09:00 86 16 108/59 (75) 95 06/15/20 09:00 16 108/59 Endotracheal Tube 40 06/15/20 09:00 16 Endotracheal Tube 40 06/15/20 08:00 Mechanical Ventilator Mechanical Ventilator 06/15/20 08:00 22 112/61 Endotracheal Tube 40 06/15/20 08:00 16 Endotracheal Tube 40 06/15/20 08:00 40 06/15/20 08:00 99.8 95 22 112/61 (78) 95 06/15/20 07:35 83 17 60 Intake and Output 06/15/20 06/16/20 19:00 07:00 Intake Total 1430 ml 575 ml Output Total 1000 ml 880 ml Balance 430 ml -305 ml Free Water 100 ml 20 ml IV Total 730 ml 135 ml Tube Feeding 600 ml 420 ml Output Urine Total 1000 ml 880 ml General Appearance: no acute distress HEENT: normocephalic Respiratory: chest wall non-tender Cardiovascular: normal peripheral pulses Abdomen: normal bowel sounds Laboratory Tests 06/15/20 09:37: Arterial Blood pH 7.413, Arterial Blood Partial Pressure CO2 55.0H, Arterial Blood Partial Pressure O2 68.6L, Arterial Blood HCO3 34.3H, Arterial Blood Oxygen Saturation 93.4L, Arterial Blood Base Excess 8.5H, Jeremiah Test Positive 06/16/20 06:56: White Blood Count [Pending], Red Blood Count [Pending], Hemoglobin [Pending], Hematocrit [Pending], Mean Corpuscular Volume [Pending], Mean Corpuscular Hemoglobin [Pending], Mean Corpuscular Hemoglobin Concent [Pending], Red Cell Distribution Width [Pending], Platelet Count [Pending], Mean Platelet Volume [Pending], Neutrophils (%) (Auto) [Pending], Lymphocytes (%) (Auto) [Pending], Monocytes (%) (Auto) [Pending], Eosinophils (%) (Auto) [Pending], Basophils (%) (Auto) [Pending], Sodium Level [Pending], Potassium Level [Pending], Chloride Level [Pending], Carbon Dioxide Level [Pending], Blood Urea Nitrogen [Pending], Creatinine [Pending], Estimat Glomerular Filtration Rate [Pending], Glucose Level [Pending], Calcium Level [Pending] Current Medications Medications (Trade) Dose Ordered Sig/Zelda Route PRN Reason Start Time Stop Time Status Last Admin Dose Admin Acetaminophen (Tylenol) 650 mg Q4H PRN NG Temp >100.5 05/31/20 21:45 06/30/20 21:44 06/15/20 22:30 Acetaminophen (Tylenol) 650 mg Q6H PRN NG Mild Pain (Pain Scale 1-3) 06/06/20 18:00 07/06/20 17:59 06/13/20 23:10 Chlorhexidine Gluconate (Inna-Hex 2%) 1 applic DAILY@1999 TOPIC 05/30/20 20:00 08/28/20 19:59 06/15/20 20:00 Dextrose (Dextrose 50%) 25 ml Q30M PRN IV Hypoglycemia 06/05/20 10:45 09/03/20 10:44 Dextrose (Dextrose 50%) 50 ml Q30M PRN IV Hypoglycemia 06/05/20 10:45 09/03/20 10:44 Docusate Sodium (Colace) 100 mg Q12HR GT 06/07/20 21:00 07/07/20 20:59 06/15/20 20:49 Enoxaparin Sodium (Lovenox) 40 mg DAILY SUBQ 05/30/20 10:00 08/28/20 09:59 06/08/20 09:08 Fentanyl Citrate 250 ml @ 1 mls/hr Q24H IV 06/13/20 01:15 06/18/20 01:14 06/15/20 15:30 Insulin Aspart (NovoLOG) EVERY 6 HOURS SUBQ 06/07/20 00:00 09/03/20 11:59 06/15/20 18:21 Insulin Aspart (NovoLOG) 23 units EVERY 6 HOURS SUBQ 06/13/20 12:00 09/04/20 08:59 06/16/20 06:18 Methylprednisolone Sodium Succinate (Solu-MEDROL) 20 mg DAILY IVP 06/15/20 09:00 09/13/20 08:59 06/15/20 08:38 Midazolam HCl 100 mg/Sodium Chloride 200 ml @ 0 mls/hr Q24H PRN IV sedation 06/12/20 16:30 06/17/20 16:29 06/15/20 16:35 Midodrine (Pro-Amatine) 10 mg Q8HR ORAL 06/14/20 14:00 09/12/20 13:59 06/16/20 06:17 Pantoprazole (Protonix) 40 mg Q12HR IVP 06/13/20 21:00 07/03/20 08:59 06/15/20 20:49 Piperacillin Sod/ Tazobactam Sod 3.375 gm/Sodium Chloride 110 ml @ 27.5 mls/hr Q8HR IVPB 06/14/20 22:00 06/21/20 21:59 06/16/20 06:15 Polyethylene Glycol (Miralax) 17 gm BEDTIME GT 06/07/20 21:00 07/07/20 20:59 06/15/20 20:49 Sodium Chloride 1,000 ml @ 50 mls/hr Q20H IV 06/06/20 08:00 07/06/20 07:59 06/15/20 12:59 Assessment/Plan Assessment/Plan 1. COVID-19 pneumonia -Intubated 05/28/20 - We will continue broad-spectrum antibiotics. - On solumedrol -On Rocephin -Continue monitoring SaO2 and keep it >92% -Continue PEEP 10->8; - Peak airway pressures high; approx 55 now - FiO2 100% -> 90 ->80->60 ->30%; -will continue OGT feeding -Continue sedation -Need to keep patient completely sedated. 2. Hyponatremia -Per primary MD 3. Elevated inflammatory markers - has high D dimer; Lovenox on hold due to hematuria 4. Febrile today Javier Nava MD Jun 16, 2020 07:36
--- NOTE | 2020-06-16 07:48 | NUR ---
HAND-OFF: Report given to RAKEL Gold. Endorsed POC.
--- NOTE | 2020-06-16 07:49 | NUR ---
NURSE NOTES: Received bedside report from RAKEL Hooker. Pt's VSS, no signs of distress noted. Pt on sedation, able to move all extremities, does not follow commands but withdraws to pain. Pt NSR on the monitoring tech, HR between 80-90. PT intubated, ETT 7.0 at 23 cm lip line, with the following vent settings: A/C rate 15, T/V 600, 40% FiO2, Peep 8, O2 sat between 95-100%. Vital AF 1.2 @ 60mL/hr, running via Left NGT. Pt has marrero catheter, draining well, hematuria noted, MD aware per prior RN. Skin intact, pt repositioned. Pt has LINDA PICC double lumen, Fentanyl running at 70mcg/hr, Versed at 4mg/hr, and NS at 50mL/hr. No signs of infection or complication noted from central line site. Pt currently has cooling blanket due to temp of 101.6. Pt has bilateral soft wrist restraints, no signs of injury noted from extremities. HOB at 30 degrees. Bed locked and in lowest position. Safety precautions maintained. Will continue to monitor.
[2020-06-16 08:01] LABS: BASOPHILS % (AUTO) 0.7 % (0.0-2.0); EOSINOPHILS % (AUTO) 4.6 % (0.0-3.0); HEMOGLOBIN 8.6 G/DL (12.0-16.0); LYMPHOCYTES % (AUTO) 16.3 % (20.0-45.0); MEAN CORPUSCULAR VOLUME 93 FL (80-99); MONOCYTES % (AUTO) 2.6 % (1.0-10.0); NEUTROPHILS % (AUTO) 75.7 % (45.0-75.0); PLATELET COUNT 213 K/UL (150-450); RED BLOOD COUNT 2.92 M/UL (4.20-5.40); RED CELL DISTRIBUTION WIDTH 15.4 % (11.6-14.8); WHITE BLOOD COUNT 10.4 K/UL (4.8-10.8)
[2020-06-16 08:21] LABS: ANION GAP 5 mmol/L (5-15); BLOOD UREA NITROGEN 33 mg/dL (7-18); CALCIUM 8.7 MG/DL (8.5-10.1); CARBON DIOXIDE 32 MMOL/L (21-32); CHLORIDE 110 MMOL/L (98-107); CREATININE 0.9 MG/DL (0.55-1.30); POTASSIUM 3.3 MMOL/L (3.5-5.1); SODIUM 147 MMOL/L (136-145)
[2020-06-16] MEDS: Enoxaparin 40mg Inj SUBQ SCH (08:21)
[2020-06-16] MEDS: Pantoprazole Inj IVP SCH ×2 (08:23→20:21)
[2020-06-16] MEDS: Solu-MEDROL 40mg Inj IVP SCH (08:24)
[2020-06-16] MEDS: Docusate 100mg/10ml Liq GT SCH ×2 (08:25→21:00)
--- NOTE | 2020-06-16 09:00 | NUR ---
NURSE NOTES: Scheduled lovenox not given due to hematuria. Other scheduled medications given per MD order, pt tolerated well. No other signs of bleeding noted. Will continue to monitor.
--- NOTE | 2020-06-16 09:01 | General Progress Note ---
Subjective Constitutional: Reports: weakness Allergies: Coded Allergies: No Known Allergies (Unverified , 05/28/20) All Systems: reviewed and negative except above Subjective intubated sedated ng in icu Objective Last 24 Hour Vital Signs Date Time Temp Pulse Resp B/P (MAP) Pulse Ox O2 Delivery O2 Flow Rate FiO2 06/16/20 07:00 23 109/58 Mechanical Ventilator 40 06/16/20 07:00 23 Mechanical Ventilator 40 06/16/20 07:00 97 23 109/58 (75) 96 06/16/20 06:30 95 21 06/16/20 06:00 101.6 96 16 109/56 (73) 96 06/16/20 06:00 16 109/56 Mechanical Ventilator 40 06/16/20 06:00 16 Mechanical Ventilator 40 06/16/20 05:00 101.8 90 20 99/51 (67) 97 06/16/20 05:00 20 99/51 Mechanical Ventilator 40 06/16/20 05:00 20 Mechanical Ventilator 40 06/16/20 04:00 95 06/16/20 04:00 95 20 108/53 (71) 97 06/16/20 04:00 30 06/16/20 04:00 20 108/53 Mechanical Ventilator 40 06/16/20 04:00 20 Mechanical Ventilator 40 06/16/20 04:00 Mechanical Ventilator Mechanical Ventilator 06/16/20 03:30 102 20 60 06/16/20 03:00 16 105/53 Mechanical Ventilator 30 06/16/20 03:00 16 Mechanical Ventilator 40 06/16/20 03:00 102.2 94 17 105/53 (70) 96 06/16/20 02:00 91 18 92/55 (67) 96 06/16/20 02:00 18 92/55 Mechanical Ventilator 30 06/16/20 02:00 18 Mechanical Ventilator 40 06/16/20 01:00 12 95/54 Mechanical Ventilator 30 06/16/20 01:00 12 Mechanical Ventilator 40 06/16/20 01:00 102 12 95/54 (68) 98 06/16/20 00:00 30 06/16/20 00:00 Mechanical Ventilator Mechanical Ventilator 06/16/20 00:00 22 107/61 Mechanical Ventilator 30 06/16/20 00:00 22 Mechanical Ventilator 30 06/16/20 00:00 95 06/16/20 00:00 103.8 95 22 107/61 (76) 97 06/15/20 23:30 98 25 60 06/15/20 23:00 104 23 112/65 (81) 97 06/15/20 23:00 23 112/65 Mechanical Ventilator 30 06/15/20 23:00 23 Mechanical Ventilator 40 06/15/20 23:00 102.7 06/15/20 22:00 26 113/65 Mechanical Ventilator 30 06/15/20 22:00 26 Mechanical Ventilator 40 06/15/20 22:00 102.7 111 26 113/65 (81) 96 06/15/20 21:00 26 116/63 Mechanical Ventilator 40 06/15/20 21:00 26 Mechanical Ventilator 40 06/15/20 21:00 110 24 114/70 (85) 96 06/15/20 20:00 120 26 110/64 (79) 97 06/15/20 20:00 112 06/15/20 20:00 23 112/62 Mechanical Ventilator 40 06/15/20 20:00 23 Mechanical Ventilator 40 06/15/20 20:00 30 06/15/20 20:00 Mechanical Ventilator Mechanical Ventilator 06/15/20 19:30 118 28 60 06/15/20 19:00 24 114/74 Mechanical Ventilator 40 06/15/20 19:00 24 Mechanical Ventilator 40 06/15/20 19:00 118 25 108/61 (77) 98 06/15/20 18:00 109 22 110/58 (75) 98 06/15/20 18:00 22 110/58 Endotracheal Tube 40 06/15/20 18:00 24 Endotracheal Tube 40 06/15/20 17:00 116 24 115/65 (82) 97 06/15/20 17:00 24 115/65 Endotracheal Tube 40 06/15/20 17:00 24 Endotracheal Tube 40 06/15/20 16:35 26 Endotracheal Tube 40 06/15/20 16:00 Mechanical Ventilator Mechanical Ventilator 06/15/20 16:00 40 06/15/20 16:00 24 113/64 Endotracheal Tube 40 06/15/20 16:00 24 Endotracheal Tube 40 06/15/20 16:00 115 24 113/64 (80) 96 06/15/20 15:43 128 25 60 06/15/20 15:30 28 140/69 Endotracheal Tube 40 06/15/20 15:20 118 06/15/20 15:00 115 25 124/81 (95) 97 06/15/20 15:00 25 124/81 Endotracheal Tube 40 06/15/20 15:00 25 Endotracheal Tube 40 06/15/20 14:00 114 25 119/75 (90) 95 06/15/20 14:00 25 119/75 Endotracheal Tube 40 06/15/20 14:00 25 Endotracheal Tube 40 06/15/20 13:00 22 125/74 Endotracheal Tube 40 06/15/20 13:00 22 Endotracheal Tube 40 06/15/20 13:00 100 22 125/74 (91) 97 06/15/20 12:13 102 06/15/20 12:00 103 27 60 06/15/20 12:00 20 126/71 Endotracheal Tube 40 06/15/20 12:00 20 Endotracheal Tube 40 06/15/20 12:00 Mechanical Ventilator Mechanical Ventilator 06/15/20 12:00 40 06/15/20 12:00 98.8 103 20 126/71 (89) 98 06/15/20 11:00 96 22 116/71 (86) 92 06/15/20 11:00 22 116/71 Endotracheal Tube 40 06/15/20 11:00 22 Endotracheal Tube 40 06/15/20 10:00 20 113/63 Endotracheal Tube 40 06/15/20 10:00 20 Endotracheal Tube 40 06/15/20 10:00 93 20 113/63 (80) 92 Intake and Output0 06/15/20 06/16/20 19:00 07:00 Intake Total 1480 ml 1230 ml Output Total 1000 ml 960 ml Balance 480 ml 270 ml Free Water 100 ml 20 ml IV Total 780 ml 730 ml Tube Feeding 600 ml 480 ml Output Urine Total 1000 ml 960 ml Laboratory Tests 06/15/20 09:37: Arterial Blood pH 7.413, Arterial Blood Partial Pressure CO2 55.0H, Arterial Blood Partial Pressure O2 68.6L, Arterial Blood HCO3 34.3H, Arterial Blood Oxygen Saturation 93.4L, Arterial Blood Base Excess 8.5H, Jeremiah Test Positive 06/16/20 06:56: White Blood Count 10.4, Red Blood Count 2.92L, Hemoglobin 8.6L, Hematocrit 27.0L , Mean Corpuscular Volume 93, Mean Corpuscular Hemoglobin 29.5, Mean Corpuscular Hemoglobin Concent 31.9L, Red Cell Distribution Width 15.4H, Platelet Count 213, Mean Platelet Volume 8.1, Neutrophils (%) (Auto) 75.7H, Lymphocytes (%) (Auto) 16.3L, Monocytes (%) (Auto) 2.6, Eosinophils (%) (Auto) 4.6H, Basophils (%) (Auto) 0.7, Sodium Level 147H, Potassium Level 3.3L, Chloride Level 110H, Carbon Dioxide Level 32, Anion Gap 5, Blood Urea Nitrogen 33H, Creatinine 0.9, Estimat Glomerular Filtration Rate > 60, Glucose Level 123H, Calcium Level 8.7 Height (Feet): 5 Height (Inches): 5.00 Weight (Pounds): 308 General Appearance: lethargic EENT: normal ENT inspection Neck: normal alignment Cardiovascular: normal peripheral pulses, normal rate, regular rhythm Respiratory/Chest: chest wall non-tender, lungs clear, normal breath sounds Abdomen: normal bowel sounds, non tender, soft Extremities: normal inspection Edema: no edema noted Arm (L), no edema noted Arm (R), no edema noted Leg (L), no edema noted Leg (R), no edema noted Pedal (L), no edema noted Pedal (R), no edema noted Generalized Neurologic: motor weakness Skin: normal pigmentation, warm/dry Assessment/Plan Problem List: (1) Hypoxia ICD Codes: R09.02 - Hypoxemia SNOMED: 797169722 (2) Respiratory failure ICD Codes: J96.90 - Respiratory failure, unspecified, unspecified whether with hypoxia or hypercapnia SNOMED: 895664147 (3) Respiratory distress ICD Codes: R06.03 - Acute respiratory distress; J12.82 - Pneumonia due to coronavirus disease 2019 SNOMED: 751323517 (4) Pneumonia due to COVID-19 virus ICD Codes: U07.1 - COVID-19; J12.82 - Pneumonia due to coronavirus disease 2019 SNOMED: 240462168243132823 Status: unchanged Assessment/Plan: vent abx id pulm f/u cbc bmp am NehemiasTanktea ChowdhuryEsther Jun 16, 2020 09:01
--- NOTE | 2020-06-16 10:54 | Diagnostic Imaging Report ---
EXAM: XR Chest, 1 View CLINICAL HISTORY: F/U TECHNIQUE: Frontal view of the chest. COMPARISON: Chest radiograph June 12, 2020. FINDINGS/IMPRESSION: Stable enteric feeding tube and endotracheal tube. Stable right upper extremity PICC line. Moderate vascular congestion with suspected, small pleural effusions. Mild worsening of the right lung base opacities which may be secondary to worsening of lung volumes. No pneumothorax. Follow-up chest radiograph recommended. Cardiomegaly.
--- NOTE | 2020-06-16 10:59 | Nephrology Progress Note ---
Assessment/Plan Problem List: (1) DEVENDRA (acute kidney injury) (2) Morbid obesity (3) Diabetes mellitus out of control (4) Pneumonia due to COVID-19 virus (5) Respiratory failure Assessment Acute renal failure Obstructive uropathy, clogged Lennon Respiratory failure COVID-19 pneumonia Morbid obesity Plan June 16: Labs reviewed. Potassium chloride replaced. Remains full code. Remains intubated on ventilator. Continue per consultants. Continue to monitor renal parameters. June 15: Labs reviewed. Serum creatinine 1. Stable from renal standpoint to view. Continue per consultants. June 14: Labs reviewed. Full code. Serum creatinine of 3.5 down to 1.4. Low potassium addressed. Continue per current treatment plan. Continue to monitor renal parameters. Midodrine started. Albumin bolus given. Previously: DC Lasix drip Increase Protonix dose Monitor renal parameters, electrolytes Per orders Subjective ROS Limited/Unobtainable: Yes Objective Objective Last 24 Hour Vital Signs Date Time Temp Pulse Resp B/P (MAP) Pulse Ox O2 Delivery O2 Flow Rate FiO2 06/16/20 08:00 Mechanical Ventilator Mechanical Ventilator 06/16/20 07:19 95 06/16/20 07:00 23 109/58 Mechanical Ventilator 40 06/16/20 07:00 23 Mechanical Ventilator 40 06/16/20 07:00 97 23 109/58 (75) 96 06/16/20 06:30 95 21 06/16/20 06:00 101.6 96 16 109/56 (73) 96 06/16/20 06:00 16 109/56 Mechanical Ventilator 40 06/16/20 06:00 16 Mechanical Ventilator 40 06/16/20 05:00 101.8 90 20 99/51 (67) 97 06/16/20 05:00 20 99/51 Mechanical Ventilator 40 06/16/20 05:00 20 Mechanical Ventilator 40 06/16/20 04:00 95 06/16/20 04:00 95 20 108/53 (71) 97 06/16/20 04:00 30 06/16/20 04:00 20 108/53 Mechanical Ventilator 40 06/16/20 04:00 20 Mechanical Ventilator 40 06/16/20 04:00 Mechanical Ventilator Mechanical Ventilator 06/16/20 03:30 102 20 60 06/16/20 03:00 16 105/53 Mechanical Ventilator 30 06/16/20 03:00 16 Mechanical Ventilator 40 06/16/20 03:00 102.2 94 17 105/53 (70) 96 06/16/20 02:00 91 18 92/55 (67) 96 06/16/20 02:00 18 92/55 Mechanical Ventilator 30 06/16/20 02:00 18 Mechanical Ventilator 40 06/16/20 01:00 12 95/54 Mechanical Ventilator 30 06/16/20 01:00 12 Mechanical Ventilator 40 06/16/20 01:00 102 12 95/54 (68) 98 06/16/20 00:00 30 06/16/20 00:00 Mechanical Ventilator Mechanical Ventilator 06/16/20 00:00 22 107/61 Mechanical Ventilator 30 06/16/20 00:00 22 Mechanical Ventilator 30 06/16/20 00:00 95 06/16/20 00:00 103.8 95 22 107/61 (76) 97 06/15/20 23:30 98 25 60 06/15/20 23:00 104 23 112/65 (81) 97 06/15/20 23:00 23 112/65 Mechanical Ventilator 30 06/15/20 23:00 23 Mechanical Ventilator 40 06/15/20 23:00 102.7 06/15/20 22:00 26 113/65 Mechanical Ventilator 30 06/15/20 22:00 26 Mechanical Ventilator 40 06/15/20 22:00 102.7 111 26 113/65 (81) 96 06/15/20 21:00 26 116/63 Mechanical Ventilator 40 06/15/20 21:00 26 Mechanical Ventilator 40 06/15/20 21:00 110 24 114/70 (85) 96 06/15/20 20:00 120 26 110/64 (79) 97 06/15/20 20:00 112 06/15/20 20:00 23 112/62 Mechanical Ventilator 40 06/15/20 20:00 23 Mechanical Ventilator 40 06/15/20 20:00 30 06/15/20 20:00 Mechanical Ventilator Mechanical Ventilator 06/15/20 19:30 118 28 60 06/15/20 19:00 24 114/74 Mechanical Ventilator 40 06/15/20 19:00 24 Mechanical Ventilator 40 06/15/20 19:00 118 25 108/61 (77) 98 06/15/20 18:00 109 22 110/58 (75) 98 06/15/20 18:00 22 110/58 Endotracheal Tube 40 06/15/20 18:00 24 Endotracheal Tube 40 06/15/20 17:00 116 24 115/65 (82) 97 06/15/20 17:00 24 115/65 Endotracheal Tube 40 06/15/20 17:00 24 Endotracheal Tube 40 06/15/20 16:35 26 Endotracheal Tube 40 06/15/20 16:00 Mechanical Ventilator Mechanical Ventilator 06/15/20 16:00 40 06/15/20 16:00 24 113/64 Endotracheal Tube 40 06/15/20 16:00 24 Endotracheal Tube 40 06/15/20 16:00 115 24 113/64 (80) 96 06/15/20 15:43 128 25 60 06/15/20 15:30 28 140/69 Endotracheal Tube 40 06/15/20 15:20 118 06/15/20 15:00 115 25 124/81 (95) 97 06/15/20 15:00 25 124/81 Endotracheal Tube 40 06/15/20 15:00 25 Endotracheal Tube 40 06/15/20 14:00 114 25 119/75 (90) 95 06/15/20 14:00 25 119/75 Endotracheal Tube 40 06/15/20 14:00 25 Endotracheal Tube 40 06/15/20 13:00 22 125/74 Endotracheal Tube 40 06/15/20 13:00 22 Endotracheal Tube 40 06/15/20 13:00 100 22 125/74 (91) 97 06/15/20 12:13 102 06/15/20 12:00 103 27 60 06/15/20 12:00 20 126/71 Endotracheal Tube 40 06/15/20 12:00 20 Endotracheal Tube 40 06/15/20 12:00 Mechanical Ventilator Mechanical Ventilator 06/15/20 12:00 40 06/15/20 12:00 98.8 103 20 126/71 (89) 98 06/15/20 11:00 96 22 116/71 (86) 92 06/15/20 11:00 22 116/71 Endotracheal Tube 40 06/15/20 11:00 22 Endotracheal Tube 40 Intake and Output 06/15/20 06/16/20 19:00 07:00 Intake Total 1480 ml 1230 ml Output Total 1000 ml 960 ml Balance 480 ml 270 ml Free Water 100 ml 20 ml IV Total 780 ml 730 ml Tube Feeding 600 ml 480 ml Output Urine Total 1000 ml 960 ml Current Medications Medications (Trade) Dose Ordered Sig/Zelda Route PRN Reason Start Time Stop Time Status Last Admin Dose Admin Acetaminophen (Tylenol) 650 mg Q4H PRN NG Temp >100.5 05/31/20 21:45 06/30/20 21:44 06/15/20 22:30 Acetaminophen (Tylenol) 650 mg Q6H PRN NG Mild Pain (Pain Scale 1-3) 06/06/20 18:00 07/06/20 17:59 06/13/20 23:10 Chlorhexidine Gluconate (Inna-Hex 2%) 1 applic DAILY@2000 TOPIC 05/30/20 20:00 08/28/20 19:59 06/15/20 20:00 Dextrose (Dextrose 50%) 25 ml Q30M PRN IV Hypoglycemia 06/05/20 10:45 09/03/20 10:44 Dextrose (Dextrose 50%) 50 ml Q30M PRN IV Hypoglycemia 06/05/20 10:45 09/03/20 10:44 Docusate Sodium (Colace) 100 mg Q12HR GT 06/07/20 21:00 07/07/20 20:59 06/16/20 08:25 Enoxaparin Sodium (Lovenox) 40 mg DAILY SUBQ 05/30/20 10:00 08/28/20 09:59 06/08/20 09:08 Fentanyl Citrate 250 ml @ 1 mls/hr Q24H IV 06/13/20 01:15 06/18/20 01:14 06/15/20 15:30 Insulin Aspart (NovoLOG) EVERY 6 HOURS SUBQ 06/07/20 00:00 09/03/20 11:59 06/15/20 18:21 Insulin Aspart (NovoLOG) 23 units EVERY 6 HOURS SUBQ 06/13/20 12:00 09/04/20 08:59 06/16/20 06:18 Methylprednisolone Sodium Succinate (Solu-MEDROL) 20 mg DAILY IVP 06/15/20 09:00 09/13/20 08:59 06/16/20 08:24 Midazolam HCl 100 mg/Sodium Chloride 200 ml @ 0 mls/hr Q24H PRN IV sedation 06/12/20 16:30 06/17/20 16:29 06/15/20 16:35 Midodrine (Pro-Amatine) 10 mg Q8HR ORAL 06/14/20 14:00 09/12/20 13:59 06/16/20 06:17 Pantoprazole (Protonix) 40 mg Q12HR IVP 06/13/20 21:00 07/03/20 08:59 06/16/20 08:23 Piperacillin Sod/ Tazobactam Sod 3.375 gm/Sodium Chloride 110 ml @ 27.5 mls/hr Q8HR IVPB 06/14/20 22:00 06/21/20 21:59 06/16/20 06:15 Polyethylene Glycol (Miralax) 17 gm BEDTIME GT 06/07/20 21:00 07/07/20 20:59 06/15/20 20:49 Sodium Chloride 1,000 ml @ 50 mls/hr Q20H IV 06/06/20 08:00 07/06/20 07:59 06/16/20 07:00 Laboratory Tests 06/16/20 06:56: White Blood Count 10.4, Red Blood Count 2.92L, Hemoglobin 8.6L, Hematocrit 27.0L , Mean Corpuscular Volume 93, Mean Corpuscular Hemoglobin 29.5, Mean Corpuscular Hemoglobin Concent 31.9L, Red Cell Distribution Width 15.4H, Platelet Count 213, Mean Platelet Volume 8.1, Neutrophils (%) (Auto) 75.7H, Lymphocytes (%) (Auto) 16.3L, Monocytes (%) (Auto) 2.6, Eosinophils (%) (Auto) 4.6H, Basophils (%) (Auto) 0.7, Sodium Level 147H, Potassium Level 3.3L, Chloride Level 110H, Carbon Dioxide Level 32, Anion Gap 5, Blood Urea Nitrogen 33H, Creatinine 0.9, Estimat Glomerular Filtration Rate > 60, Glucose Level 123H, Calcium Level 8.7 06/16/20 10:16: Arterial Blood pH 7.420, Arterial Blood Partial Pressure CO2 52.5H, Arterial Blood Partial Pressure O2 61.6L, Arterial Blood HCO3 33.3H, Arterial Blood Oxygen Saturation 91.8L, Arterial Blood Base Excess 7.7H, Jeremiah Test Positive Height (Feet): 5 Height (Inches): 5.00 Weight (Pounds): 308 General Appearance: mild distress EENT: other - Intubated on ventilator Cardiovascular: tachycardia Respiratory/Chest: decreased breath sounds Abdomen: distended Rigo Tyler MD Jun 16, 2020 10:58
--- NOTE | 2020-06-16 11:11 | Surgery Progress Note ---
Surgery Progress Note Subjective Additional Comments febrile ill appearing lab snoted on support Objective Last 24 Hour Vital Signs Date Time Temp Pulse Resp B/P (MAP) Pulse Ox O2 Delivery O2 Flow Rate FiO2 06/16/20 08:00 Mechanical Ventilator Mechanical Ventilator 06/16/20 07:19 95 06/16/20 07:00 23 109/58 Mechanical Ventilator 40 06/16/20 07:00 23 Mechanical Ventilator 40 06/16/20 07:00 97 23 109/58 (75) 96 06/16/20 06:30 95 21 06/16/20 06:00 101.6 96 16 109/56 (73) 96 06/16/20 06:00 16 109/56 Mechanical Ventilator 40 06/16/20 06:00 16 Mechanical Ventilator 40 06/16/20 05:00 101.8 90 20 99/51 (67) 97 06/16/20 05:00 20 99/51 Mechanical Ventilator 40 06/16/20 05:00 20 Mechanical Ventilator 40 06/16/20 04:00 95 06/16/20 04:00 95 20 108/53 (71) 97 06/16/20 04:00 30 06/16/20 04:00 20 108/53 Mechanical Ventilator 40 06/16/20 04:00 20 Mechanical Ventilator 40 06/16/20 04:00 Mechanical Ventilator Mechanical Ventilator 06/16/20 03:30 102 20 60 06/16/20 03:00 16 105/53 Mechanical Ventilator 30 06/16/20 03:00 16 Mechanical Ventilator 40 06/16/20 03:00 102.2 94 17 105/53 (70) 96 06/16/20 02:00 91 18 92/55 (67) 96 06/16/20 02:00 18 92/55 Mechanical Ventilator 30 06/16/20 02:00 18 Mechanical Ventilator 40 06/16/20 01:00 12 95/54 Mechanical Ventilator 30 06/16/20 01:00 12 Mechanical Ventilator 40 06/16/20 01:00 102 12 95/54 (68) 98 06/16/20 00:00 30 06/16/20 00:00 Mechanical Ventilator Mechanical Ventilator 06/16/20 00:00 22 107/61 Mechanical Ventilator 30 06/16/20 00:00 22 Mechanical Ventilator 30 06/16/20 00:00 95 06/16/20 00:00 103.8 95 22 107/61 (76) 97 06/15/20 23:30 98 25 60 06/15/20 23:00 104 23 112/65 (81) 97 06/15/20 23:00 23 112/65 Mechanical Ventilator 30 06/15/20 23:00 23 Mechanical Ventilator 40 06/15/20 23:00 102.7 06/15/20 22:00 26 113/65 Mechanical Ventilator 30 06/15/20 22:00 26 Mechanical Ventilator 40 06/15/20 22:00 102.7 111 26 113/65 (81) 96 06/15/20 21:00 26 116/63 Mechanical Ventilator 40 06/15/20 21:00 26 Mechanical Ventilator 40 06/15/20 21:00 110 24 114/70 (85) 96 06/15/20 20:00 120 26 110/64 (79) 97 06/15/20 20:00 112 06/15/20 20:00 23 112/62 Mechanical Ventilator 40 06/15/20 20:00 23 Mechanical Ventilator 40 06/15/20 20:00 30 06/15/20 20:00 Mechanical Ventilator Mechanical Ventilator 06/15/20 19:30 118 28 60 06/15/20 19:00 24 114/74 Mechanical Ventilator 40 06/15/20 19:00 24 Mechanical Ventilator 40 06/15/20 19:00 118 25 108/61 (77) 98 06/15/20 18:00 109 22 110/58 (75) 98 06/15/20 18:00 22 110/58 Endotracheal Tube 40 06/15/20 18:00 24 Endotracheal Tube 40 06/15/20 17:00 116 24 115/65 (82) 97 06/15/20 17:00 24 115/65 Endotracheal Tube 40 06/15/20 17:00 24 Endotracheal Tube 40 06/15/20 16:35 26 Endotracheal Tube 40 06/15/20 16:00 Mechanical Ventilator Mechanical Ventilator 06/15/20 16:00 40 06/15/20 16:00 24 113/64 Endotracheal Tube 40 06/15/20 16:00 24 Endotracheal Tube 40 06/15/20 16:00 115 24 113/64 (80) 96 06/15/20 15:43 128 25 60 06/15/20 15:30 28 140/69 Endotracheal Tube 40 06/15/20 15:20 118 06/15/20 15:00 115 25 124/81 (95) 97 06/15/20 15:00 25 124/81 Endotracheal Tube 40 06/15/20 15:00 25 Endotracheal Tube 40 06/15/20 14:00 114 25 119/75 (90) 95 06/15/20 14:00 25 119/75 Endotracheal Tube 40 06/15/20 14:00 25 Endotracheal Tube 40 06/15/20 13:00 22 125/74 Endotracheal Tube 40 06/15/20 13:00 22 Endotracheal Tube 40 06/15/20 13:00 100 22 125/74 (91) 97 06/15/20 12:13 102 06/15/20 12:00 103 27 60 06/15/20 12:00 20 126/71 Endotracheal Tube 40 06/15/20 12:00 20 Endotracheal Tube 40 06/15/20 12:00 Mechanical Ventilator Mechanical Ventilator 06/15/20 12:00 40 06/15/20 12:00 98.8 103 20 126/71 (89) 98 I&O Intake and Output 06/15/20 06/16/20 19:00 07:00 Intake Total 1480 ml 1230 ml Output Total 1000 ml 960 ml Balance 480 ml 270 ml Free Water 100 ml 20 ml IV Total 780 ml 730 ml Tube Feeding 600 ml 480 ml Output Urine Total 1000 ml 960 ml Dressing: saturated Cardiovascular: RSR Respiratory: decreased breath sounds Abdomen: non-tender, present bowel sounds, decreased bowel sounds Extremities: edema, no cyanosis Laboratory Tests Test 06/16/20 06:56 06/16/20 10:16 White Blood Count 10.4 K/UL (4.8-10.8) Red Blood Count 2.92 M/UL (4.20-5.40) L Hemoglobin 8.6 G/DL (12.0-16.0) L Hematocrit 27.0 % (37.0-47.0) L Mean Corpuscular Volume 93 FL (80-99) Mean Corpuscular Hemoglobin 29.5 PG (27.0-31.0) Mean Corpuscular Hemoglobin Concent 31.9 G/DL (32.0-36.0) L Red Cell Distribution Width 15.4 % (11.6-14.8) H Platelet Count 213 K/UL (150-450) Mean Platelet Volume 8.1 FL (6.5-10.1) Neutrophils (%) (Auto) 75.7 % (45.0-75.0) H Lymphocytes (%) (Auto) 16.3 % (20.0-45.0) L Monocytes (%) (Auto) 2.6 % (1.0-10.0) Eosinophils (%) (Auto) 4.6 % (0.0-3.0) H Basophils (%) (Auto) 0.7 % (0.0-2.0) Sodium Level 147 MMOL/L (136-145) H Potassium Level 3.3 MMOL/L (3.5-5.1) L Chloride Level 110 MMOL/L (98-107) H Carbon Dioxide Level 32 MMOL/L (21-32) Anion Gap 5 mmol/L (5-15) Blood Urea Nitrogen 33 mg/dL (7-18) H Creatinine 0.9 MG/DL (0.55-1.30) Estimat Glomerular Filtration Rate > 60 mL/min (>60) Glucose Level 123 MG/DL (74-106) H Calcium Level 8.7 MG/DL (8.5-10.1) Arterial Blood pH 7.420 (7.350-7.450) Arterial Blood Partial Pressure CO2 52.5 mmHg (35.0-45.0) H Arterial Blood Partial Pressure O2 61.6 mmHg (75.0-100.0) L Arterial Blood HCO3 33.3 mmol/L (22.0-26.0) H Arterial Blood Oxygen Saturation 91.8 % (95-100) L Arterial Blood Base Excess 7.7 (-2-2) H Jeremiah Test Positive Plan Problems: (1) Respiratory distress (2) Respiratory failure Assessment & Plan: 50-year-old female Covid positive respiratory insufficiency intubated on ventilatory support declining. Leukocytosis increase oxygen requirement. Vent settings per pulmonology reviewed identified and agree. Unfortunately further surgical invention at this time is not appropriate as patient is not a candidate and her current condition. Prognosis overall guarded. Tracheostomy can be considered in the future if recovering or shows improvement and requires unable to be weaned from ventilator support. Currently okay for nutritional optimization with NG tube. Will need significant monitoring for decubitus formation given patient's size and condition. Okay for air mattress tolerated. Turn every 2 hours as tolerated. Patient is otherwise critically ill and blood pressure labile. Will need to monitor closely.Bilateral infiltrates are again demonstrated. Stable tube and line positions. (3) Hypoxia (4) Pneumonia due to COVID-19 virus Assessment & Plan: ++ as per pulm and ID (5) Diabetes mellitus out of control Assessment & Plan: DAILY ESTIMATED NEEDS: Needs based on Critical care, obesity 11-14kcal/kg actual body wt (140kg) kcals/kg 6810-8042 total kcals 1.5-2.0g prot/kg IBW (64.5kg) g protein/kg 96-129 g total protein 25-30ml/kg abw (83kg) mL/kg 6216-7248 total fluid mLs NUTRITION DIAGNOSIS: Swallowing difficulty R/T respiratory failure as evidenced by pt orally intubated and sedated, on OGT feeds. CURRENT TF: Vital 1.2 goal of 60ml/hr ENTERAL NUTRITION RECOMMENDATIONS: Vital AF 1.2 @ 60ml/hr x 24 hrs to provide 1440ml, 1728kcal, 108g prot, 1168ml free water * Maintain current critical care and carb controlled TF formula of Vital AF * TF @ goal meeds 100% est kcal/prot needs * HOB over 30 degrees/ water flush per MD TF may be lowered to 55ml/hr for improved BG control while maintaining Kcal and pro needs. ADDITIONAL RECOMMENDATIONS: * Calibrated bedscale wt * Monitor Propofol rate, need for TF adjustment-> now off * Monitor BGs closely : now improved, on novolog q 6rs + NISS * Monitor lytes * Rec bowel regimen- now added Az Devine Jun 16, 2020 11:11
--- NOTE | 2020-06-16 11:50 | NUR ---
NURSE NOTES: MD Tyler at bedside to assess pt. Scheduled medication given per MD order, pt tolerating well. Will continue to monitor.
--- NOTE | 2020-06-16 13:42 | NUR ---
NURSE NOTES: Pt's VSS, no signs of distress noted. Pt's temperature checked, 100.1, pt still on cooling blanket. Will continue to monitor.
--- NOTE | 2020-06-16 15:00 | NUR ---
NURSE NOTES: Pt's tube feeding residual checked, no residual noted. Scheduled medications given per MD order, pt tolerated well. Pt's VSS, no signs of distress noted. Will continue to monitor.
[2020-06-16] MEDS: Midazolam HCl 50mg/10ml vial 100 MG in NS 180 ML IV PRN (17:00)
--- NOTE | 2020-06-16 17:35 | NUR ---
NURSE NOTES: Pt's VSS, no signs of distress noted, afebrile. Oral care provided, bed bath given. Pt's bed linens and gown changed. Safety precautions maintained. Will continue to monitor.
--- NOTE | 2020-06-16 19:02 | NUR ---
NURSE HAND-OFF REPORT: Latest Vital Signs: Temperature 99.3 , Pulse 87 , B/P 125 /68 , Respiratory Rate 26 , O2 SAT 96 , Mechanical Ventilator, FiO2 40%. Vital Sign Comment: EKG Rhythm: Sinus Rhythm Rhythm change?: N MD Notified?: MD Response: Latest Meyers Fall Score: 70 Fall Risk: High Risk Safety Measures: Call light Within Reach, Bed Alarm Zone 1, Side Rails Side Rails x2, Bed position Low and Locked. Fall Precautions: Yellow Socks Yellow Gown Door Sign Patient Fall Education Report given to RAKEL Buckner for continuity of care. Pt stable.
--- NOTE | 2020-06-16 19:30 | NUR ---
NURSE NOTES: Received report from RAKEL High. Pt is sedated on the bed and RASS -2. Pt has ETT and orally intubated. Vent dependent and setting with AC: 15, T: 600, P:8, FiO2 50 and SaO2 95% noted. Given suction and oral care. moderated amount secretion suctioned. Pt has NGT and no residual noted. On running with Vital AF @ 60cc/hr. keep HOB position. No fever noted with Cooling blanket. On Lennon cath and patent and drainage well. Pt has Rt. upper arm PICC line and on running with N/S @ 50cc/hr, Fentanyl drip @ 70mcg/hr and Versed @ 4mg/hr. Pt has Bilateral soft wrist restraint and checked comfort and circulation. Trying to release restraint when during care. Pt still trying to ETT and Lennon. Given verbal cueing but didn't understand. Placed fall precaution. On proper isolation for COVID-19. Will continue to care plan.
[2020-06-16] MEDS: Dyna-Hex 2% Top Sol 2oz TOPIC SCH (19:36)
[2020-06-16] MEDS: Miralax 17gm pkt GT SCH (21:00)
--- NOTE | 2020-06-16 22:00 | NUR ---
NURSE NOTES: Pt is sedated on the bed and noted large amount of BM with diarrhea. cleaned Pt and applied lotion and cream. No open wound noted. Hold laxative medication. Get order and inserted Rectal tube. SaO2 96% with current Vent setting and FiO2 55%. Turn and reposition. will continue to monitor any change of condition.
[2020-06-17] VITALS (55 sets, daily range): BP systolic 93–145; BP diastolic 50–87
--- NOTE | 2020-06-17 | NUR ---
NURSE NOTES: Pt is sedated on the bed and RASS -2. on running with Fentanyl @ 100mcg/hr and Versed @ 6mg/hr, SaO2 99% with current Vent setting. Given and suction and oral care. Tolerated well well with NGT feeding. note fever noted with cooling blanket. Placed fall precaution. will continue to care plan.
[2020-06-17] MEDS: NovoLOG Insulin Flexpen SUBQ SCH ×10 (00:03→23:38)
--- NOTE | 2020-06-17 02:00 | NUR ---
NURSE NOTES: No sign of acute distress. given suction and oral care. Turn and reposition. will continue to monitor any change of condition.
[2020-06-17] MEDS: fentaNYL 2500mcg/NS 250ml 250 ML IV SCH (02:09)
--- NOTE | 2020-06-17 04:00 | NUR ---
NURSE NOTES: Morning care was done. Cleaned Pt and applied lotion and cream. Given suction and mouth care. Tolerated well with current NGT feeding and no residual noted. Lennon and rectal tube is patent and drainage well. Noted BT:99.5F and keep cooling measure. SaO2 100% with Current Vent setting. Pt is sedated and RASS -2 on running with Fentanyl @ 100mcg/hr and Versed @ 6mg/hr. Turn and reposition. Will continue to monitor any change of condition.
[2020-06-17] MEDS: Midodrine 10mg tab ORAL SCH ×3 (05:53→21:39)
[2020-06-17] MEDS: Piperacillin/Tazobactam 3.375 GM in NS 110 ML IVPB SCH ×3 (05:54→21:24)
--- NOTE | 2020-06-17 06:00 | NUR ---
NURSE NOTES: Changed position. Given suction and oral care. SaO2 100% with Vent. on clinical pharmacy manager with SR. Will continue to care plan.
[2020-06-17 06:25] LABS: BASOPHILS % (AUTO) 0.7 % (0.0-2.0); EOSINOPHILS % (AUTO) 6.7 % (0.0-3.0); HEMATOCRIT 28.7 % (37.0-47.0); LYMPHOCYTES % (AUTO) 12.7 % (20.0-45.0); MEAN CORPUSCULAR VOLUME 93 FL (80-99); MONOCYTES % (AUTO) 2.4 % (1.0-10.0); NEUTROPHILS % (AUTO) 77.5 % (45.0-75.0); PLATELET COUNT 205 K/UL (150-450); RED CELL DISTRIBUTION WIDTH 15.1 % (11.6-14.8); WHITE BLOOD COUNT 9.5 K/UL (4.8-10.8)
--- NOTE | 2020-06-17 06:39 | General Progress Note ---
Subjective ROS Limited/Unobtainable: Yes Allergies: Coded Allergies: No Known Allergies (Unverified , 05/28/20) Subjective events noted interval notes reviewed glucose values stable Item Value Date Time Bedside Blood Glucose 149 mg/dl H 06/17/20 0614 Bedside Blood Glucose 131 mg/dl H 06/17/20 0003 Bedside Blood Glucose 236 mg/dl H 06/16/20 1830 Bedside Blood Glucose 218 mg/dl H 06/16/20 1225 Bedside Blood Glucose 122 mg/dl H 06/16/20 0618 Bedside Blood Glucose 134 mg/dl H 06/16/20 0000 Objective Last 24 Hour Vital Signs Date Time Temp Pulse Resp B/P (MAP) Pulse Ox O2 Delivery O2 Flow Rate FiO2 06/17/20 06:15 20 96/50 Mechanical Ventilator 55 06/17/20 06:15 20 Mechanical Ventilator 55 06/17/20 06:00 80 20 96/50 (65) 100 06/17/20 05:30 80 19 103/57 (72) 100 06/17/20 05:15 27 131/75 Mechanical Ventilator 55 06/17/20 05:15 27 Mechanical Ventilator 55 06/17/20 05:00 89 27 131/75 (93) 100 06/17/20 04:30 82 17 93/55 (68) 100 06/17/20 04:15 20 93/57 Mechanical Ventilator 55 06/17/20 04:15 20 Mechanical Ventilator 55 06/17/20 04:00 87 06/17/20 04:00 55 06/17/20 04:00 Mechanical Ventilator Mechanical Ventilator 06/17/20 04:00 99.5 86 20 93/57 (69) 100 06/17/20 03:42 91 22 55 06/17/20 03:30 87 19 94/55 (68) 100 06/17/20 03:15 16 122/64 Mechanical Ventilator 55 06/17/20 03:15 16 Mechanical Ventilator 55 06/17/20 03:00 88 17 122/64 (83) 98 06/17/20 02:30 83 11 112/60 (77) 98 06/17/20 02:15 16 125/73 Mechanical Ventilator 55 06/17/20 02:15 16 Mechanical Ventilator 55 06/17/20 02:09 16 125/73 Mechanical Ventilator 50 06/17/20 02:00 92 23 125/73 (90) 96 06/17/20 01:30 85 6 106/57 (73) 99 06/17/20 01:15 16 113/64 Mechanical Ventilator 55 06/17/20 01:15 16 Mechanical Ventilator 55 06/17/20 01:00 84 16 113/64 (80) 99 06/17/20 00:30 86 17 112/61 (78) 100 06/17/20 00:15 18 116/68 Mechanical Ventilator 55 06/17/20 00:15 18 Mechanical Ventilator 55 06/17/20 00:00 99.0 85 17 108/65 (79) 99 06/17/20 00:00 100 06/17/20 00:00 Mechanical Ventilator Mechanical Ventilator 06/17/20 00:00 55 06/16/20 23:30 95 25 126/86 (99) 92 06/16/20 23:00 91 18 116/68 (84) 98 06/16/20 23:00 89 22 50 06/16/20 22:30 102 21 122/55 (77) 96 06/16/20 22:15 22 125/78 Mechanical Ventilator 100 06/16/20 22:15 22 Mechanical Ventilator 55 06/16/20 22:00 108 26 113/72 (86) 96 06/16/20 22:00 26 113/72 Mechanical Ventilator 100 06/16/20 22:00 26 Mechanical Ventilator 55 06/16/20 21:45 25 138/76 Mechanical Ventilator 55 06/16/20 21:45 25 Mechanical Ventilator 55 06/16/20 21:30 98 23 138/76 (96) 96 06/16/20 21:00 100 25 132/79 (96) 93 06/16/20 20:45 21 134/72 Mechanical Ventilator 55 06/16/20 20:45 21 Mechanical Ventilator 55 06/16/20 20:30 88 23 128/73 (91) 97 06/16/20 20:30 23 123/73 Mechanical Ventilator 55 06/16/20 20:30 23 Mechanical Ventilator 55 06/16/20 20:15 25 139/73 Mechanical Ventilator 55 06/16/20 20:15 25 Mechanical Ventilator 55 06/16/20 20:00 55 06/16/20 20:00 99.0 90 28 143/81 (101) 96 06/16/20 20:00 84 06/16/20 20:00 28 143/81 Mechanical Ventilator 55 06/16/20 20:00 28 Mechanical Ventilator 100 06/16/20 20:00 Mechanical Ventilator Mechanical Ventilator 06/16/20 19:30 83 22 123/67 (85) 95 06/16/20 19:13 87 26 55 06/16/20 19:00 85 25 125/69 (87) 96 06/16/20 19:00 23 125/68 Mechanical Ventilator 40 06/16/20 19:00 23 Mechanical Ventilator 40 06/16/20 18:00 82 23 116/68 (84) 100 06/16/20 18:00 22 116/68 Mechanical Ventilator 40 06/16/20 18:00 22 Mechanical Ventilator 40 06/16/20 17:00 22 106/61 Mechanical Ventilator 40 06/16/20 17:00 20 Mechanical Ventilator 40 06/16/20 17:00 84 23 121/63 (82) 100 06/16/20 16:59 20 Mechanical Ventilator 40 06/16/20 16:00 40 06/16/20 16:00 Mechanical Ventilator Mechanical Ventilator 06/16/20 16:00 20 107/58 Mechanical Ventilator 40 06/16/20 16:00 20 Mechanical Ventilator 40 06/16/20 16:00 86 06/16/20 16:00 99.3 87 24 106/59 (75) 97 06/16/20 15:00 90 24 108/60 (76) 95 06/16/20 15:00 24 108/60 Mechanical Ventilator 40 06/16/20 15:00 24 Mechanical Ventilator 40 06/16/20 14:00 20 109/57 Mechanical Ventilator 40 06/16/20 14:00 20 Mechanical Ventilator 40 06/16/20 14:00 87 21 109/57 (74) 96 06/16/20 13:00 84 20 104/57 (73) 96 06/16/20 13:00 20 104/57 Mechanical Ventilator 40 06/16/20 13:00 20 Mechanical Ventilator 40 06/16/20 12:19 85 21 60 06/16/20 12:00 100.3 83 20 106/58 (74) 97 06/16/20 12:00 40 06/16/20 12:00 Mechanical Ventilator Mechanical Ventilator 06/16/20 12:00 21 106/58 Mechanical Ventilator 40 06/16/20 12:00 21 Mechanical Ventilator 40 06/16/20 11:28 82 1/24/21 11:00 82 20 100/51 (67) 96 06/16/20 11:00 20 100/51 Mechanical Ventilator 40 06/16/20 11:00 20 Mechanical Ventilator 40 06/16/20 10:00 20 108/61 Mechanical Ventilator 40 06/16/20 10:00 20 Mechanical Ventilator 40 06/16/20 10:00 101.1 82 20 108/61 (77) 96 06/16/20 09:00 19 103/50 Mechanical Ventilator 40 06/16/20 09:00 19 Mechanical Ventilator 40 06/16/20 09:00 88 21 103/50 (67) 96 06/16/20 08:00 Mechanical Ventilator Mechanical Ventilator 06/16/20 08:00 40 06/16/20 08:00 20 92/50 Mechanical Ventilator 40 06/16/20 08:00 20 Mechanical Ventilator 40 06/16/20 08:00 101.6 88 20 92/50 (64) 98 06/16/20 07:19 95 06/16/20 07:15 83 20 60 06/16/20 07:00 23 109/58 Mechanical Ventilator 40 06/16/20 07:00 23 Mechanical Ventilator 40 06/16/20 07:00 97 23 109/58 (75) 96 Intake and Output 06/16/20 06/17/20 19:00 07:00 Intake Total 1760.000 ml 1499.625 ml Output Total 700 ml 700 ml Balance 1060.000 ml 799.625 ml Free Water 40 ml IV Total 1000.000 ml 839.625 ml Tube Feeding 720 ml 660 ml Output Urine Total 700 ml 600 ml Stool Total 100 ml # Bowel Movements 1 3 Laboratory Tests 06/16/20 06:56: White Blood Count 10.4, Red Blood Count 2.92L, Hemoglobin 8.6L, Hematocrit 27.0L , Mean Corpuscular Volume 93, Mean Corpuscular Hemoglobin 29.5, Mean Corpuscular Hemoglobin Concent 31.9L, Red Cell Distribution Width 15.4H, Platelet Count 213, Mean Platelet Volume 8.1, Neutrophils (%) (Auto) 75.7H, Lymphocytes (%) (Auto) 16.3L, Monocytes (%) (Auto) 2.6, Eosinophils (%) (Auto) 4.6H, Basophils (%) (Auto) 0.7, Sodium Level 147H, Potassium Level 3.3L, Chloride Level 110H, Carbon Dioxide Level 32, Anion Gap 5, Blood Urea Nitrogen 33H, Creatinine 0.9, Estimat Glomerular Filtration Rate > 60, Glucose Level 123H, Calcium Level 8.7 06/16/20 10:16: Arterial Blood pH 7.420, Arterial Blood Partial Pressure CO2 52.5H, Arterial Blood Partial Pressure O2 61.6L, Arterial Blood HCO3 33.3H, Arterial Blood Oxygen Saturation 91.8L, Arterial Blood Base Excess 7.7H, Jeremiah Test Positive 06/17/20 05:18: White Blood Count [Pending], Red Blood Count [Pending], Hemoglobin [Pending], Hematocrit [Pending], Mean Corpuscular Volume [Pending], Mean Corpuscular Hemoglobin [Pending], Mean Corpuscular Hemoglobin Concent [Pending], Red Cell Distribution Width [Pending], Platelet Count [Pending], Mean Platelet Volume [Pending], Neutrophils (%) (Auto) [Pending], Lymphocytes (%) (Auto) [Pending], Monocytes (%) (Auto) [Pending], Eosinophils (%) (Auto) [Pending], Basophils (%) (Auto) [Pending], Sodium Level [Pending], Potassium Level [Pending], Chloride L evel [Pending], Carbon Dioxide Level [Pending], Blood Urea Nitrogen [Pending], Creatinine [Pending], Estimat Glomerular Filtration Rate [Pending], Glucose Level [Pending], Calcium Level [Pending], Phosphorus Level [Pending], Magnesium Level [Pending], Total Bilirubin [Pending], Direct Bilirubin [Pending], Aspartate Amino Transf (AST/SGOT) [Pending], Alanine Aminotransferase (ALT/SGPT) [Pending], Alkaline Phosphatase [Pending], C-Reactive Protein, Quantitative [Pending], Pro-B-Type Natriuretic Peptide [Pending], Total Protein [Pending], Albumin [Pending] Height (Feet): 5 Height (Inches): 5.00 Weight (Pounds): 308 Objective Current Medications Medications (Trade) Dose Ordered Sig/Zelda Route PRN Reason Start Time Stop Time Status Last Admin Dose Admin Acetaminophen (Tylenol) 650 mg Q4H PRN NG Temp >100.5 05/31/20 21:45 06/30/20 21:44 06/15/20 22:30 Acetaminophen (Tylenol) 650 mg Q6H PRN NG Mild Pain (Pain Scale 1-3) 06/06/20 18:00 07/06/20 17:59 06/13/20 23:10 Chlorhexidine Gluconate (Inna-Hex 2%) 1 applic DAILY@2000 TOPIC 05/30/20 20:00 08/28/20 19:59 06/16/20 19:36 Dextrose (Dextrose 50%) 25 ml Q30M PRN IV Hypoglycemia 06/05/20 10:45 09/03/20 10:44 Dextrose (Dextrose 50%) 50 ml Q30M PRN IV Hypoglycemia 06/05/20 10:45 09/03/20 10:44 Docusate Sodium (Colace) 100 mg Q12HR GT 06/07/20 21:00 07/07/20 20:59 06/16/20 08:25 Enoxaparin Sodium (Lovenox) 40 mg DAILY SUBQ 05/30/20 10:00 08/28/20 09:59 06/08/20 09:08 Fentanyl Citrate 250 ml @ 1 mls/hr Q24H IV 06/13/20 01:15 06/18/20 01:14 06/17/20 02:09 Insulin Aspart (NovoLOG) EVERY 6 HOURS SUBQ 06/07/20 00:00 09/03/20 11:59 06/17/20 06:14 Insulin Aspart (NovoLOG) 23 units EVERY 6 HOURS SUBQ 06/13/20 12:00 09/04/20 08:59 06/17/20 06:14 Methylprednisolone Sodium Succinate (Solu-MEDROL) 20 mg DAILY IVP 06/15/20 09:00 09/13/20 08:59 06/16/20 08:24 Midazolam HCl 100 mg/Sodium Chloride 200 ml @ 0 mls/hr Q24H PRN IV sedation 06/12/20 16:30 06/17/20 16:29 06/16/20 17:00 Midodrine (Pro-Amatine) 10 mg Q8HR ORAL 06/14/20 14:00 09/12/20 13:59 06/17/20 05:53 Pantoprazole (Protonix) 40 mg Q12HR IVP 06/13/20 21:00 07/03/20 08:59 06/16/20 20:21 Piperacillin Sod/ Tazobactam Sod 3.375 gm/Sodium Chloride 110 ml @ 27.5 mls/hr Q8HR IVPB 06/14/20 22:00 06/21/20 21:59 06/17/20 05:54 Polyethylene Glycol (Miralax) 17 gm BEDTIME GT 06/07/20 21:00 07/07/20 20:59 06/15/20 20:49 Sodium Chloride 1,000 ml @ 50 mls/hr Q20H IV 06/06/20 08:00 07/06/20 07:59 06/17/20 02:38 Assessment/Plan Problem List: (1) Diabetes mellitus out of control ICD Codes: E11.65 - Type 2 diabetes mellitus with hyperglycemia SNOMED: 53674207, 357469174 (2) Pneumonia due to COVID-19 virus ICD Codes: U07.1 - COVID-19; J12.82 - Pneumonia due to coronavirus disease 2019 SNOMED: 412488337366753470 (3) Respiratory distress ICD Codes: R06.03 - Acute respiratory distress; J12.82 - Pneumonia due to coronavirus disease 2019 SNOMED: 048991521 Status: unchanged Assessment/Plan: continue Novolog 23 units every 6 hours continue Novolog sliding scale every 6 hours Huber Adame MD Jun 17, 2020 06:39
[2020-06-17 06:45] LABS: ANION GAP 6 mmol/L (5-15); BLOOD UREA NITROGEN 29 mg/dL (7-18); CARBON DIOXIDE 32 MMOL/L (21-32); CHLORIDE 109 MMOL/L (98-107); POTASSIUM 3.9 MMOL/L (3.5-5.1); SODIUM 147 MMOL/L (136-145)
[2020-06-17 06:54] LABS: CALCIUM 8.9 MG/DL (8.5-10.1); CREATININE 0.7 MG/DL (0.55-1.30)
--- NOTE | 2020-06-17 07:19 | NUR ---
NURSE HAND-OFF REPORT: Latest Vital Signs: Temperature 99.5 , Pulse 79 , B/P 118 /72 , Respiratory Rate 20 , O2 SAT 98 , Mechanical Ventilator, O2 Flow Rate . Vital Sign Comment: EKG Rhythm: Sinus Rhythm Rhythm change?: N Latest Meyers Fall Score: 70 Fall Risk: High Risk Safety Measures: Call light Within Reach, Bed Alarm Zone 1, Side Rails Side Rails x2, Bed position Low and Locked. Fall Precautions: Yellow Socks Yellow Gown Door Sign Patient Fall Education Report given to RAKEL Barr. Pt is sedated on the bed and on running with Fentanyl @ 100mcg/hr and Versed @ 6mg/hr.
[2020-06-17 07:33] LABS: ALANINE AMINOTRANSFERASE 20 U/L (12-78); ALBUMIN 2.1 G/DL (3.4-5.0); ALKALINE PHOSPHATASE 40 U/L (46-116); ASPARTATE AMINO TRANSFERASE 33 U/L (15-37); BILIRUBIN,DIRECT 0.3 MG/DL (0.0-0.3); BILIRUBIN,TOTAL 0.7 MG/DL (0.2-1.0); PHOSPHORUS 2.3 MG/DL (2.5-4.9)
--- NOTE | 2020-06-17 08:01 | NUR ---
NURSE NOTES: MD. SON HERE TO SEE OT. WAS GIVEN UPDATE REGARDING PT STATUS. BUN/CRE: 29/0.7 TRENDING DOWN. I/O WNL. NO EVENTS FROM LAST NIGHT.
--- NOTE | 2020-06-17 08:03 | NUR ---
NURSE NOTES: MD. RILEY HERE TO SEE PT. WAS GIVEN UPDATE ON STATUS. H/H AND PLT WNL. REMAINS SEDATED
[2020-06-17] MEDS: Pantoprazole Inj IVP SCH ×2 (08:51→21:02)
[2020-06-17] MEDS: Docusate 100mg/10ml Liq GT SCH ×2 (08:51→21:02)
[2020-06-17] MEDS: Solu-MEDROL 40mg Inj IVP SCH (08:51)
[2020-06-17] MEDS: Enoxaparin 40mg Inj SUBQ SCH (08:52)
--- NOTE | 2020-06-17 09:05 | General Progress Note ---
Subjective Constitutional: Reports: weakness Allergies: Coded Allergies: No Known Allergies (Unverified , 05/28/20) All Systems: reviewed and negative except above Subjective intubated sedated ng in icu Objective Last 24 Hour Vital Signs Date Time Temp Pulse Resp B/P (MAP) Pulse Ox O2 Delivery O2 Flow Rate FiO2 06/17/20 08:30 93 28 138/71 (93) 94 06/17/20 08:15 92 23 145/87 (106) 96 06/17/20 08:00 55 06/17/20 08:00 84 15 123/68 (86) 95 06/17/20 07:35 99 20 50 06/17/20 07:15 20 118/72 Mechanical Ventilator 55 06/17/20 07:15 20 Mechanical Ventilator 55 06/17/20 07:00 79 20 118/72 (87) 98 06/17/20 06:30 78 20 06/17/20 06:30 78 20 111/63 (79) 98 06/17/20 06:15 20 96/50 Mechanical Ventilator 55 06/17/20 06:15 20 Mechanical Ventilator 55 06/17/20 06:00 80 20 96/50 (65) 100 06/17/20 05:30 80 19 103/57 (72) 100 06/17/20 05:15 27 131/75 Mechanical Ventilator 55 06/17/20 05:15 27 Mechanical Ventilator 55 06/17/20 05:00 89 27 131/75 (93) 100 06/17/20 04:30 82 17 93/55 (68) 100 06/17/20 04:15 20 93/57 Mechanical Ventilator 55 06/17/20 04:15 20 Mechanical Ventilator 55 06/17/20 04:00 87 06/17/20 04:00 55 06/17/20 04:00 Mechanical Ventilator Mechanical Ventilator 06/17/20 04:00 99.5 86 20 93/57 (69) 100 06/17/20 03:42 91 22 55 06/17/20 03:30 87 19 94/55 (68) 100 06/17/20 03:15 16 122/64 Mechanical Ventilator 55 06/17/20 03:15 16 Mechanical Ventilator 55 06/17/20 03:00 88 17 122/64 (83) 98 06/17/20 02:30 83 11 112/60 (77) 98 06/17/20 02:15 16 125/73 Mechanical Ventilator 55 06/17/20 02:15 16 Mechanical Ventilator 55 06/17/20 02:09 16 125/73 Mechanical Ventilator 50 06/17/20 02:00 92 23 125/73 (90) 96 06/17/20 01:30 85 6 106/57 (73) 99 06/17/20 01:15 16 113/64 Mechanical Ventilator 55 06/17/20 01:15 16 Mechanical Ventilator 55 06/17/20 01:00 84 16 113/64 (80) 99 06/17/20 00:30 86 17 112/61 (78) 100 06/17/20 00:15 18 116/68 Mechanical Ventilator 55 06/17/20 00:15 18 Mechanical Ventilator 55 06/17/20 00:00 99.0 85 17 108/65 (79) 99 06/17/20 00:00 100 06/17/20 00:00 Mechanical Ventilator Mechanical Ventilator 06/17/20 00:00 55 06/16/20 23:30 95 25 126/86 (99) 92 06/16/20 23:00 91 18 116/68 (84) 98 06/16/20 23:00 89 22 50 06/16/20 22:30 102 21 122/55 (77) 96 06/16/20 22:15 22 125/78 Mechanical Ventilator 100 06/16/20 22:15 22 Mechanical Ventilator 55 06/16/20 22:00 108 26 113/72 (86) 96 06/16/20 22:00 26 113/72 Mechanical Ventilator 100 06/16/20 22:00 26 Mechanical Ventilator 55 06/16/20 21:45 25 138/76 Mechanical Ventilator 55 06/16/20 21:45 25 Mechanical Ventilator 55 06/16/20 21:30 98 23 138/76 (96) 96 06/16/20 21:00 100 25 132/79 (96) 93 06/16/20 20:45 21 134/72 Mechanical Ventilator 55 06/16/20 20:45 21 Mechanical Ventilator 55 06/16/20 20:30 88 23 128/73 (91) 97 06/16/20 20:30 23 123/73 Mechanical Ventilator 55 06/16/20 20:30 23 Mechanical Ventilator 55 06/16/20 20:15 25 139/73 Mechanical Ventilator 55 06/16/20 20:15 25 Mechanical Ventilator 55 06/16/20 20:00 55 06/16/20 20:00 99.0 90 28 143/81 (101) 96 06/16/20 20:00 84 06/16/20 20:00 28 143/81 Mechanical Ventilator 55 06/16/20 20:00 28 Mechanical Ventilator 100 06/16/20 20:00 Mechanical Ventilator Mechanical Ventilator 06/16/20 19:30 83 22 123/67 (85) 95 06/16/20 19:13 87 26 55 06/16/20 19:00 85 25 125/69 (87) 96 06/16/20 19:00 23 125/68 Mechanical Ventilator 40 06/16/20 19:00 23 Mechanical Ventilator 40 06/16/20 18:00 82 23 116/68 (84) 100 06/16/20 18:00 22 116/68 Mechanical Ventilator 40 06/16/20 18:00 22 Mechanical Ventilator 40 06/16/20 17:00 22 106/61 Mechanical Ventilator 40 06/16/20 17:00 20 Mechanical Ventilator 40 06/16/20 17:00 84 23 121/63 (82) 100 06/16/20 16:59 20 Mechanical Ventilator 40 06/16/20 16:00 40 06/16/20 16:00 Mechanical Ventilator Mechanical Ventilator 06/16/20 16:00 20 107/58 Mechanical Ventilator 40 06/16/20 16:00 20 Mechanical Ventilator 40 06/16/20 16:00 86 06/16/20 16:00 99.3 87 24 106/59 (75) 97 06/16/20 15:00 90 24 108/60 (76) 95 06/16/20 15:00 24 108/60 Mechanical Ventilator 40 06/16/20 15:00 24 Mechanical Ventilator 40 06/16/20 14:00 20 109/57 Mechanical Ventilator 40 06/16/20 14:00 20 Mechanical Ventilator 40 06/16/20 14:00 87 21 109/57 (74) 96 06/16/20 13:00 84 20 104/57 (73) 96 06/16/20 13:00 20 104/57 Mechanical Ventilator 40 06/16/20 13:00 20 Mechanical Ventilator 40 06/16/20 12:19 85 21 60 06/16/20 12:00 100.3 83 20 106/58 (74) 97 06/16/20 12:00 40 06/16/20 12:00 Mechanical Ventilator Mechanical Ventilator 06/16/20 12:00 21 106/58 Mechanical Ventilator 40 06/16/20 12:00 21 Mechanical Ventilator 40 06/16/20 11:28 82 06/16/20 11:00 82 20 100/51 (67) 96 06/16/20 11:00 20 100/51 Mechanical Ventilator 40 06/16/20 11:00 20 Mechanical Ventilator 40 06/16/20 10:00 20 108/61 Mechanical Ventilator 40 06/16/20 10:00 20 Mechanical Ventilator 40 06/16/20 10:00 101.1 82 20 108/61 (77) 96 Intake and Output 06/16/20 06/17/20 19:00 07:00 Intake Total 1760.000 ml 1637.125 ml Output Total 700 ml 760 ml Balance 1060.000 ml 877.125 ml Free Water 40 ml IV Total 1000.000 ml 917.125 ml Tube Feeding 720 ml 720 ml Output Urine Total 700 ml 660 ml Stool Total 100 ml # Bowel Movements 1 3 Laboratory Tests 06/16/20 10:16: Arterial Blood pH 7.420, Arterial Blood Partial Pressure CO2 52.5H, Arterial Blood Partial Pressure O2 61.6L, Arterial Blood HCO3 33.3H, Arterial Blood Oxygen Saturation 91.8L, Arterial Blood Base Excess 7.7H, Jeremiah Test Positive 06/17/20 05:18: White Blood Count 9.5, Red Blood Count 3.10L, Hemoglobin 9.0L, Hematocrit 28.7L, Mean Corpuscular Volume 93, Mean Corpuscular Hemoglobin 29.0, Mean Corpuscular Hemoglobin Concent 31.3L, Red Cell Distribution Width 15.1H, Platelet Count 205, Mean Platelet Volume 8.1, Neutrophils (%) (Auto) 77.5H, Lymphocytes (%) (Auto) 12.7L, Monocytes (%) (Auto) 2.4, Eosinophils (%) (Auto) 6.7H, Basophils (%) (Auto) 0.7, Sodium Level 147H, Potassium Level 3.9, Chloride Level 109H, Carbon Dioxide Level 32, Anion Gap 6, Blood Urea Nitrogen 29H, Creatinine 0.7, Estimat Glomerular Filtration Rate > 60, Glucose Level 114H, Calcium Level 8.9, Phosphorus Level 2.3L, Magnesium Level 1.8, Total Bilirubin 0.7, Direct Bilirubin 0.3, Aspartate Amino Transf (AST/SGOT) 33, Alanine Aminotransferase (ALT/SGPT) 20, Alkaline Phosphatase 40L, C-Reactive Protein, Quantitative 3.2H, Pro-B-Type Natriuretic Peptide 768H, Total Protein 5.5L, Albumin 2.1L Height (Feet): 5 Height (Inches): 5.00 Weight (Pounds): 308 General Appearance: lethargic EENT: normal ENT inspection Neck: normal alignment Cardiovascular: normal peripheral pulses, normal rate, regular rhythm Respiratory/Chest: chest wall non-tender, lungs clear, normal breath sounds Abdomen: normal bowel sounds, non tender, soft Extremities: normal inspection Edema: no edema noted Arm (L), no edema noted Arm (R), no edema noted Leg (L), no edema noted Leg (R), no edema noted Pedal (L), no edema noted Pedal (R), no edema noted Generalized Neurologic: motor weakness Skin: normal pigmentation, warm/dry Assessment/Plan Problem List: (1) Hypoxia ICD Codes: R09.02 - Hypoxemia SNOMED: 466348108 (2) Respiratory failure ICD Codes: J96.90 - Respiratory failure, unspecified, unspecified whether with hypoxia or hypercapnia SNOMED: 579969364 (3) Respiratory distress ICD Codes: R06.03 - Acute respiratory distress; J12.82 - Pneumonia due to coronavirus disease 2019 SNOMED: 554721449 (4) Pneumonia due to COVID-19 virus ICD Codes: U07.1 - COVID-19; J12.82 - Pneumonia due to coronavirus disease 2019 SNOMED: 155717109901225653 Status: unchanged Assessment/Plan: vent abx id pulm f/u cbc bmp am Tank Del Cid DO Jun 17, 2020 09:05
--- NOTE | 2020-06-17 09:10 | Nephrology Progress Note ---
Assessment/Plan Problem List: (1) DEVENDRA (acute kidney injury) (2) Morbid obesity (3) Diabetes mellitus out of control (4) Pneumonia due to COVID-19 virus (5) Respiratory failure Assessment Acute renal failure Obstructive uropathy, clogged Lennon Respiratory failure COVID-19 pneumonia Morbid obesity Plan June 17: Labs reviewed. Abnormal electrolytes addressed. Patient remains full code and intubated on ventilator. Continue per consultants. Renal parameters are within normal limits. June 16: Labs reviewed. Potassium chloride replaced. Remains full code. Remains intubated on ventilator. Continue per consultants. Continue to monitor renal parameters. June 15: Labs reviewed. Serum creatinine 1. Stable from renal standpoint to view. Continue per consultants. June 14: Labs reviewed. Full code. Serum creatinine of 3.5 down to 1.4. Low potassium addressed. Continue per current treatment plan. Continue to monitor renal parameters. Midodrine started. Albumin bolus given. Previously: DC Lasix drip Increase Protonix dose Monitor renal parameters, electrolytes Per orders Subjective ROS Limited/Unobtainable: Yes Objective Objective Last 24 Hour Vital Signs Date Time Temp Pulse Resp B/P (MAP) Pulse Ox O2 Delivery O2 Flow Rate FiO2 06/17/20 08:30 93 28 138/71 (93) 94 06/17/20 08:15 92 23 145/87 (106) 96 06/17/20 08:00 55 06/17/20 08:00 84 15 123/68 (86) 95 06/17/20 07:35 99 20 50 06/17/20 07:15 20 118/72 Mechanical Ventilator 55 06/17/20 07:15 20 Mechanical Ventilator 55 06/17/20 07:00 79 20 118/72 (87) 98 06/17/20 06:30 78 20 06/17/20 06:30 78 20 111/63 (79) 98 06/17/20 06:15 20 96/50 Mechanical Ventilator 55 06/17/20 06:15 20 Mechanical Ventilator 55 06/17/20 06:00 80 20 96/50 (65) 100 06/17/20 05:30 80 19 103/57 (72) 100 06/17/20 05:15 27 131/75 Mechanical Ventilator 55 06/17/20 05:15 27 Mechanical Ventilator 55 06/17/20 05:00 89 27 131/75 (93) 100 06/17/20 04:30 82 17 93/55 (68) 100 06/17/20 04:15 20 93/57 Mechanical Ventilator 55 06/17/20 04:15 20 Mechanical Ventilator 55 06/17/20 04:00 87 06/17/20 04:00 55 06/17/20 04:00 Mechanical Ventilator Mechanical Ventilator 06/17/20 04:00 99.5 86 20 93/57 (69) 100 06/17/20 03:42 91 22 55 06/17/20 03:30 87 19 94/55 (68) 100 06/17/20 03:15 16 122/64 Mechanical Ventilator 55 06/17/20 03:15 16 Mechanical Ventilator 55 06/17/20 03:00 88 17 122/64 (83) 98 06/17/20 02:30 83 11 112/60 (77) 98 06/17/20 02:15 16 125/73 Mechanical Ventilator 55 06/17/20 02:15 16 Mechanical Ventilator 55 06/17/20 02:09 16 125/73 Mechanical Ventilator 50 06/17/20 02:00 92 23 125/73 (90) 96 06/17/20 01:30 85 6 106/57 (73) 99 06/17/20 01:15 16 113/64 Mechanical Ventilator 55 06/17/20 01:15 16 Mechanical Ventilator 55 06/17/20 01:00 84 16 113/64 (80) 99 06/17/20 00:30 86 17 112/61 (78) 100 06/17/20 00:15 18 116/68 Mechanical Ventilator 55 06/17/20 00:15 18 Mechanical Ventilator 55 06/17/20 00:00 99.0 85 17 108/65 (79) 99 06/17/20 00:00 100 06/17/20 00:00 Mechanical Ventilator Mechanical Ventilator 06/17/20 00:00 55 06/16/20 23:30 95 25 126/86 (99) 92 06/16/20 23:00 91 18 116/68 (84) 98 06/16/20 23:00 89 22 50 06/16/20 22:30 102 21 122/55 (77) 96 06/16/20 22:15 22 125/78 Mechanical Ventilator 100 06/16/20 22:15 22 Mechanical Ventilator 55 06/16/20 22:00 108 26 113/72 (86) 96 06/16/20 22:00 26 113/72 Mechanical Ventilator 100 06/16/20 22:00 26 Mechanical Ventilator 55 06/16/20 21:45 25 138/76 Mechanical Ventilator 55 06/16/20 21:45 25 Mechanical Ventilator 55 06/16/20 21:30 98 23 138/76 (96) 96 06/16/20 21:00 100 25 132/79 (96) 93 06/16/20 20:45 21 134/72 Mechanical Ventilator 55 06/16/20 20:45 21 Mechanical Ventilator 55 06/16/20 20:30 88 23 128/73 (91) 97 06/16/20 20:30 23 123/73 Mechanical Ventilator 55 06/16/20 20:30 23 Mechanical Ventilator 55 06/16/20 20:15 25 139/73 Mechanical Ventilator 55 06/16/20 20:15 25 Mechanical Ventilator 55 06/16/20 20:00 55 06/16/20 20:00 99.0 90 28 143/81 (101) 96 06/16/20 20:00 84 06/16/20 20:00 28 143/81 Mechanical Ventilator 55 06/16/20 20:00 28 Mechanical Ventilator 100 06/16/20 20:00 Mechanical Ventilator Mechanical Ventilator 06/16/20 19:30 83 22 123/67 (85) 95 06/16/20 19:13 87 26 55 06/16/20 19:00 85 25 125/69 (87) 96 06/16/20 19:00 23 125/68 Mechanical Ventilator 40 06/16/20 19:00 23 Mechanical Ventilator 40 06/16/20 18:00 82 23 116/68 (84) 100 06/16/20 18:00 22 116/68 Mechanical Ventilator 40 06/16/20 18:00 22 Mechanical Ventilator 40 06/16/20 17:00 22 106/61 Mechanical Ventilator 40 06/16/20 17:00 20 Mechanical Ventilator 40 06/16/20 17:00 84 23 121/63 (82) 100 06/16/20 16:59 20 Mechanical Ventilator 40 06/16/20 16:00 40 06/16/20 16:00 Mechanical Ventilator Mechanical Ventilator 06/16/20 16:00 20 107/58 Mechanical Ventilator 40 06/16/20 16:00 20 Mechanical Ventilator 40 06/16/20 16:00 86 06/16/20 16:00 99.3 87 24 106/59 (75) 97 06/16/20 15:00 90 24 108/60 (76) 95 06/16/20 15:00 24 108/60 Mechanical Ventilator 40 06/16/20 15:00 24 Mechanical Ventilator 40 06/16/20 14:00 20 109/57 Mechanical Ventilator 40 06/16/20 14:00 20 Mechanical Ventilator 40 06/16/20 14:00 87 21 109/57 (74) 96 06/16/20 13:00 84 20 104/57 (73) 96 06/16/20 13:00 20 104/57 Mechanical Ventilator 40 06/16/20 13:00 20 Mechanical Ventilator 40 06/16/20 12:19 85 21 60 06/16/20 12:00 100.3 83 20 106/58 (74) 97 06/16/20 12:00 40 06/16/20 12:00 Mechanical Ventilator Mechanical Ventilator 06/16/20 12:00 21 106/58 Mechanical Ventilator 40 06/16/20 12:00 21 Mechanical Ventilator 40 06/16/20 11:28 82 06/16/20 11:00 82 20 100/51 (67) 96 06/16/20 11:00 20 100/51 Mechanical Ventilator 40 06/16/20 11:00 20 Mechanical Ventilator 40 06/16/20 10:00 20 108/61 Mechanical Ventilator 40 06/16/20 10:00 20 Mechanical Ventilator 40 06/16/20 10:00 101.1 82 20 108/61 (77) 96 Intake and Output 06/16/20 06/17/20 19:00 07:00 Intake Total 1760.000 ml 1637.125 ml Output Total 700 ml 760 ml Balance 1060.000 ml 877.125 ml Free Water 40 ml IV Total 1000.000 ml 917.125 ml Tube Feeding 720 ml 720 ml Output Urine Total 700 ml 660 ml Stool Total 100 ml # Bowel Movements 1 3 Current Medications Medications (Trade) Dose Ordered Sig/Zelda Route PRN Reason Start Time Stop Time Status Last Admin Dose Admin Acetaminophen (Tylenol) 650 mg Q4H PRN NG Temp >100.5 05/31/20 21:45 06/30/20 21:44 06/15/20 22:30 Acetaminophen (Tylenol) 650 mg Q6H PRN NG Mild Pain (Pain Scale 1-3) 06/06/20 18:00 07/06/20 17:59 06/13/20 23:10 Chlorhexidine Gluconate (Inna-Hex 2%) 1 applic DAILY@2000 TOPIC 05/30/20 20:00 08/28/20 19:59 06/16/20 19:36 Dextrose (Dextrose 50%) 25 ml Q30M PRN IV Hypoglycemia 06/05/20 10:45 09/03/20 10:44 Dextrose (Dextrose 50%) 50 ml Q30M PRN IV Hypoglycemia 06/05/20 10:45 09/03/20 10:44 Docusate Sodium (Colace) 100 mg Q12HR GT 06/07/20 21:00 07/07/20 20:59 06/16/20 08:25 Enoxaparin Sodium (Lovenox) 40 mg DAILY SUBQ 05/30/20 10:00 08/28/20 09:59 06/17/20 08:52 Fentanyl Citrate 250 ml @ 1 mls/hr Q24H IV 06/13/20 01:15 06/18/20 01:14 06/17/20 02:09 Insulin Aspart (NovoLOG) EVERY 6 HOURS SUBQ 06/07/20 00:00 09/03/20 11:59 06/17/20 06:14 Insulin Aspart (NovoLOG) 23 units EVERY 6 HOURS SUBQ 06/13/20 12:00 09/04/20 08:59 06/17/20 06:14 Methylprednisolone Sodium Succinate (Solu-MEDROL) 20 mg DAILY IVP 06/15/20 09:00 09/13/20 08:59 06/17/20 08:51 Midazolam HCl 100 mg/Sodium Chloride 200 ml @ 0 mls/hr Q24H PRN IV sedation 06/12/20 16:30 06/17/20 16:29 06/16/20 17:00 Midodrine (Pro-Amatine) 10 mg Q8HR ORAL 06/14/20 14:00 09/12/20 13:59 06/17/20 05:53 Pantoprazole (Protonix) 40 mg Q12HR IVP 06/13/20 21:00 07/03/20 08:59 06/17/20 08:51 Piperacillin Sod/ Tazobactam Sod 3.375 gm/Sodium Chloride 110 ml @ 27.5 mls/hr Q8HR IVPB 06/14/20 22:00 06/21/20 21:59 06/17/20 05:54 Polyethylene Glycol (Miralax) 17 gm BEDTIME GT 06/07/20 21:00 07/07/20 20:59 06/15/20 20:49 Sodium Chloride 1,000 ml @ 50 mls/hr Q20H IV 06/06/20 08:00 07/06/20 07:59 06/17/20 02:38 Laboratory Tests 06/16/20 10:16: Arterial Blood pH 7.420, Arterial Blood Partial Pressure CO2 52.5H, Arterial Blood Partial Pressure O2 61.6L, Arterial Blood HCO3 33.3H, Arterial Blood Oxygen Saturation 91.8L, Arterial Blood Base Excess 7.7H, Jeremiah Test Positive 06/17/20 05:18: White Blood Count 9.5, Red Blood Count 3.10L, Hemoglobin 9.0L, Hematocrit 28.7L, Mean Corpuscular Volume 93, Mean Corpuscular Hemoglobin 29.0, Mean Corpuscular Hemoglobin Concent 31.3L, Red Cell Distribution Width 15.1H, Platelet Count 205, Mean Platelet Volume 8.1, Neutrophils (%) (Auto) 77.5H, Lymphocytes (%) (Auto) 12.7L, Monocytes (%) (Auto) 2.4, Eosinophils (%) (Auto) 6.7H, Basophils (%) (Auto) 0.7, Sodium Level 147H, Potassium Level 3.9, Chloride Level 109H, Carbon Dioxide Level 32, Anion Gap 6, Blood Urea Nitrogen 29H, Creatinine 0.7, Estimat Glomerular Filtration Rate > 60, Glucose Level 114H, Calcium Level 8.9, Phospho kaye Level 2.3L, Magnesium Level 1.8, Total Bilirubin 0.7, Direct Bilirubin 0.3, Aspartate Amino Transf (AST/SGOT) 33, Alanine Aminotransferase (ALT/SGPT) 20, Alkaline Phosphatase 40L, C-Reactive Protein, Quantitative 3.2H, Pro-B-Type Natriuretic Peptide 768H, Total Protein 5.5L, Albumin 2.1L Height (Feet): 5 Height (Inches): 5.00 Weight (Pounds): 308 General Appearance: no apparent distress Cardiovascular: tachycardia Respiratory/Chest: decreased breath sounds Abdomen: distended Rigo Tyler MD Jun 17, 2020 09:10
[2020-06-17] MEDS ORDERED: Potassium Phosphate 20 MM in NS 275 ML IV ONE (10:30)
--- NOTE | 2020-06-17 10:55 | NUR ---
NURSE NOTES: LATE ENTRY: MD. WHEELER HERE TO SEE PT. WAS INFORMED OF TRENDING DOWN OF WBC 9.5. NO NOTED HEMATURIA. WILL PLACE OWN ORDERS.
--- NOTE | 2020-06-17 11:00 | NUR ---
NURSE NOTES: LATE ENTRY: MD. CHA HERE TO SEE PT. WS INFORMED OF PT NOT WEANED TODAY, PER R.T PEEP RANGE IS >5. PT SEDATED ON VERSED AND FENTANYL DRIP. ASKED IF WANT TO CONTINUE FENTANYL DRIP BECAUSE DISCONTINUED TOMORROW AT 0114. DOES NOT WANT TO CONTINUE ORDER. RECEIVED ORDER FOR CHANGE TO PEEP 5, SEDATION VACATION IN AM AND WEANING PROTOCOL.
--- NOTE | 2020-06-17 11:22 | Pulmonology Progress Note ---
Subjective ROS Limited/Unobtainable: Yes Interval Events: Remains intubated Constitutional: Reports: fever, other - T=103 HEENT: Repors: no symptoms Respiratory: Reports: no symptoms Cardiovascular: Reports: no symptoms Gastrointestinal/Abdominal: Reports: no symptoms Genitourinary: Reports: no symptoms Allergies: Coded Allergies: No Known Allergies (Unverified , 05/28/20) All Systems: reviewed and negative except above Objective Last 24 Hour Vital Signs Date Time Temp Pulse Resp B/P (MAP) Pulse Ox O2 Delivery O2 Flow Rate FiO2 06/17/20 11:00 73 16 107/66 (80) 100 06/17/20 10:45 75 19 110/62 (78) 100 06/17/20 10:30 75 18 115/65 (82) 99 06/17/20 10:15 76 16 112/63 (79) 98 06/17/20 10:00 79 19 109/59 (76) 100 06/17/20 09:45 98 18 122/66 (84) 90 06/17/20 09:30 83 18 123/71 (88) 98 06/17/20 09:15 85 20 123/68 (86) 96 06/17/20 09:15 20 Mechanical Ventilator 06/17/20 09:00 98.5 87 21 122/70 (87) 95 06/17/20 08:30 93 28 138/71 (93) 94 06/17/20 08:15 23 Mechanical Ventilator 06/17/20 08:15 92 23 145/87 (106) 96 06/17/20 08:00 55 06/17/20 08:00 80 06/17/20 08:00 84 15 123/68 (86) 95 06/17/20 08:00 Mechanical Ventilator Mechanical Ventilator 06/17/20 07:35 99 20 50 06/17/20 07:15 20 118/72 Mechanical Ventilator 55 06/17/20 07:15 20 Mechanical Ventilator 55 06/17/20 07:00 79 20 118/72 (87) 98 06/17/20 06:30 78 20 06/17/20 06:30 78 20 111/63 (79) 98 06/17/20 06:15 20 96/50 Mechanical Ventilator 55 06/17/20 06:15 20 Mechanical Ventilator 55 06/17/20 06:00 80 20 96/50 (65) 100 06/17/20 05:30 80 19 103/57 (72) 100 06/17/20 05:15 27 131/75 Mechanical Ventilator 55 06/17/20 05:15 27 Mechanical Ventilator 55 06/17/20 05:00 89 27 131/75 (93) 100 06/17/20 04:30 82 17 93/55 (68) 100 06/17/20 04:15 20 93/57 Mechanical Ventilator 55 06/17/20 04:15 20 Mechanical Ventilator 55 06/17/20 04:00 87 06/17/20 04:00 55 06/17/20 04:00 Mechanical Ventilator Mechanical Ventilator 06/17/20 04:00 99.5 86 20 93/57 (69) 100 06/17/20 03:42 91 22 55 06/17/20 03:30 87 19 94/55 (68) 100 06/17/20 03:15 16 122/64 Mechanical Ventilator 55 06/17/20 03:15 16 Mechanical Ventilator 55 06/17/20 03:00 88 17 122/64 (83) 98 06/17/20 02:30 83 11 112/60 (77) 98 06/17/20 02:15 16 125/73 Mechanical Ventilator 55 06/17/20 02:15 16 Mechanical Ventilator 55 06/17/20 02:09 16 125/73 Mechanical Ventilator 50 06/17/20 02:00 92 23 125/73 (90) 96 06/17/20 01:30 85 6 106/57 (73) 99 06/17/20 01:15 16 113/64 Mechanical Ventilator 55 06/17/20 01:15 16 Mechanical Ventilator 55 06/17/20 01:00 84 16 113/64 (80) 99 06/17/20 00:30 86 17 112/61 (78) 100 06/17/20 00:15 18 116/68 Mechanical Ventilator 55 06/17/20 00:15 18 Mechanical Ventilator 55 06/17/20 00:00 99.0 85 17 108/65 (79) 99 06/17/20 00:00 100 06/17/20 00:00 Mechanical Ventilator Mechanical Ventilator 06/17/20 00:00 55 06/16/20 23:30 95 25 126/86 (99) 92 06/16/20 23:00 91 18 116/68 (84) 98 1/24/21 23:00 89 22 50 06/16/20 22:30 102 21 122/55 (77) 96 06/16/20 22:15 22 125/78 Mechanical Ventilator 100 06/16/20 22:15 22 Mechanical Ventilator 55 06/16/20 22:00 108 26 113/72 (86) 96 06/16/20 22:00 26 113/72 Mechanical Ventilator 100 06/16/20 22:00 26 Mechanical Ventilator 55 06/16/20 21:45 25 138/76 Mechanical Ventilator 55 06/16/20 21:45 25 Mechanical Ventilator 55 06/16/20 21:30 98 23 138/76 (96) 96 06/16/20 21:00 100 25 132/79 (96) 93 06/16/20 20:45 21 134/72 Mechanical Ventilator 55 06/16/20 20:45 21 Mechanical Ventilator 55 06/16/20 20:30 88 23 128/73 (91) 97 06/16/20 20:30 23 123/73 Mechanical Ventilator 55 06/16/20 20:30 23 Mechanical Ventilator 55 06/16/20 20:15 25 139/73 Mechanical Ventilator 55 06/16/20 20:15 25 Mechanical Ventilator 55 06/16/20 20:00 55 06/16/20 20:00 99.0 90 28 143/81 (101) 96 06/16/20 20:00 84 06/16/20 20:00 28 143/81 Mechanical Ventilator 55 06/16/20 20:00 28 Mechanical Ventilator 100 06/16/20 20:00 Mechanical Ventilator Mechanical Ventilator 06/16/20 19:30 83 22 123/67 (85) 95 06/16/20 19:13 87 26 55 06/16/20 19:00 85 25 125/69 (87) 96 06/16/20 19:00 23 125/68 Mechanical Ventilator 40 06/16/20 19:00 23 Mechanical Ventilator 40 06/16/20 18:00 82 23 116/68 (84) 100 06/16/20 18:00 22 116/68 Mechanical Ventilator 40 06/16/20 18:00 22 Mechanical Ventilator 40 06/16/20 17:00 22 106/61 Mechanical Ventilator 40 06/16/20 17:00 20 Mechanical Ventilator 40 06/16/20 17:00 84 23 121/63 (82) 100 06/16/20 16:59 20 Mechanical Ventilator 40 06/16/20 16:00 40 06/16/20 16:00 Mechanical Ventilator Mechanical Ventilator 06/16/20 16:00 20 107/58 Mechanical Ventilator 40 06/16/20 16:00 20 Mechanical Ventilator 40 06/16/20 16:00 86 06/16/20 16:00 99.3 87 24 106/59 (75) 97 06/16/20 15:00 90 24 108/60 (76) 95 06/16/20 15:00 24 108/60 Mechanical Ventilator 40 06/16/20 15:00 24 Mechanical Ventilator 40 06/16/20 14:00 20 109/57 Mechanical Ventilator 40 06/16/20 14:00 20 Mechanical Ventilator 40 06/16/20 14:00 87 21 109/57 (74) 96 06/16/20 13:00 84 20 104/57 (73) 96 06/16/20 13:00 20 104/57 Mechanical Ventilator 40 06/16/20 13:00 20 Mechanical Ventilator 40 06/16/20 12:19 85 21 60 06/16/20 12:00 100.3 83 20 106/58 (74) 97 06/16/20 12:00 40 06/16/20 12:00 Mechanical Ventilator Mechanical Ventilator 06/16/20 12:00 21 106/58 Mechanical Ventilator 40 06/16/20 12:00 21 Mechanical Ventilator 40 06/16/20 11:28 82 Intake and Output 06/16/20 06/17/20 19:00 07:00 Intake Total 1760.000 ml 1637.125 ml Output Total 700 ml 760 ml Balance 1060.000 ml 877.125 ml Free Water 40 ml IV Total 1000.000 ml 917.125 ml Tube Feeding 720 ml 720 ml Output Urine Total 700 ml 660 ml Stool Total 100 ml # Bowel Movements 1 3 General Appearance: no acute distress HEENT: normocephalic Respiratory: chest wall non-tender Cardiovascular: normal peripheral pulses Abdomen: normal bowel sounds Laboratory Tests 06/17/20 05:18: White Blood Count 9.5, Red Blood Count 3.10L, Hemoglobin 9.0L, Hematocrit 28.7L, Mean Corpuscular Volume 93, Mean Corpuscular Hemoglobin 29.0, Mean Corpuscular Hemoglobin Concent 31.3L, Red Cell Distribution Width 15.1H, Platelet Count 205, Mean Platelet Volume 8.1, Neutrophils (%) (Auto) 77.5H, Lymphocytes (%) (Auto) 12.7L, Monocytes (%) (Auto) 2.4, Eosinophils (%) (Auto) 6.7H, Basophils (%) (Auto) 0.7, Sodium Level 147H, Potassium Level 3.9, Chloride Level 109H, Carbon Dioxide Level 32, Anion Gap 6, Blood Urea Nitrogen 29H, Creatinine 0.7, Estimat Glomerular Filtration Rate > 60, Glucose Level 114H, Calcium Level 8.9, Phosphorus Level 2.3L, Magnesium Level 1.8, Total Bilirubin 0.7, Direct Bilirubin 0.3, Aspartate Amino Transf (AST/SGOT) 33, Alanine Aminotransferase (ALT/SGPT) 20, Alkaline Phosphatase 40L, C-Reactive Protein, Quantitative 3.2H, Pro-B-Type Natriuretic Peptide 768H, Total Protein 5.5L, Albumin 2.1L Current Medications Medications (Trade) Dose Ordered Sig/Zelda Route PRN Reason Start Time Stop Time Status Last Admin Dose Admin Acetaminophen (Tylenol) 650 mg Q4H PRN NG Temp >100.5 05/31/20 21:45 06/30/20 21:44 06/15/20 22:30 Acetaminophen (Tylenol) 650 mg Q6H PRN NG Mild Pain (Pain Scale 1-3) 06/06/20 18:00 07/06/20 17:59 06/13/20 23:10 Chlorhexidine Gluconate (Inna-Hex 2%) 1 applic DAILY@2000 TOPIC 05/30/20 20:00 08/28/20 19:59 06/16/20 19:36 Dextrose (Dextrose 50%) 25 ml Q30M PRN IV Hypoglycemia 06/05/20 10:45 09/03/20 10:44 Dextrose (Dextrose 50%) 50 ml Q30M PRN IV Hypoglycemia 06/05/20 10:45 09/03/20 10:44 Docusate Sodium (Colace) 100 mg Q12HR GT 06/07/20 21:00 07/07/20 20:59 06/16/20 08:25 Enoxaparin Sodium (Lovenox) 40 mg DAILY SUBQ 05/30/20 10:00 08/28/20 09:59 06/17/20 08:52 Fentanyl Citrate 250 ml @ 1 mls/hr Q24H IV 06/13/20 01:15 06/18/20 01:14 06/17/20 02:09 Insulin Aspart (NovoLOG) EVERY 6 HOURS SUBQ 06/07/20 00:00 09/03/20 11:59 06/17/20 06:14 Insulin Aspart (NovoLOG) 23 units EVERY 6 HOURS SUBQ 06/13/20 12:00 09/04/20 08:59 06/17/20 06:14 Methylprednisolone Sodium Succinate (Solu-MEDROL) 20 mg DAILY IVP 06/15/20 09:00 09/13/20 08:59 06/17/20 08:51 Midazolam HCl 100 mg/Dextrose 200 ml @ 0 mls/hr Q24H PRN IV sedation 06/17/20 12:00 06/19/20 11:59 Midazolam HCl 100 mg/Sodium Chloride 200 ml @ 0 mls/hr Q24H PRN IV sedation 06/12/20 16:30 06/17/20 12:00 06/16/20 17:00 Midodrine (Pro-Amatine) 10 mg Q8HR ORAL 06/14/20 14:00 09/12/20 13:59 06/17/20 05:53 Pantoprazole (Protonix) 40 mg Q12HR IVP 06/13/20 21:00 07/03/20 08:59 06/17/20 08:51 Piperacillin Sod/ Tazobactam Sod 3.375 gm/Sodium Chloride 110 ml @ 27.5 mls/hr Q8HR IVPB 06/14/20 22:00 06/21/20 21:59 06/17/20 05:54 Polyethylene Glycol (Miralax) 17 gm BEDTIME GT 06/07/20 21:00 07/07/20 20:59 06/15/20 20:49 Potassium Phosphate 20 mm/ Sodium Chloride 281.6667 ml @ 46.944 m... ONCE ONCE IV 06/17/20 10:30 06/17/20 16:29 06/17/20 11:12 Sodium Chloride 1,000 ml @ 50 mls/hr Q20H IV 06/06/20 08:00 07/06/20 07:59 06/17/20 02:38 Assessment/Plan Assessment/Plan 1. COVID-19 pneumonia -Intubated 05/28/20 - We will continue broad-spectrum antibiotics. - On solumedrol -On Rocephin -Continue monitoring SaO2 and keep it >92% -Continue PEEP 10->8; - Peak airway pressures high; approx 48 now - FiO2 100% -> 90 ->80->60 ->40%; -will continue OGT feeding -Continue sedation -Need to keep patient completely sedated. 2. Hyponatremia -Per primary MD 3. Elevated inflammatory markers - has high D dimer; Lovenox on hold due to hematuria 4. Decarese PEEp Begin weaning Javier Nava MD Jun 17, 2020 11:22
--- NOTE | 2020-06-17 11:37 | Hematology/Onc Progress Note ---
Assessment/Plan Assessment/Plan # Thrombocytopenia is due to infection/underlying covid19+++ --> ABX ceftriaxone -->zosyn --> on steriods likely cause of initial wbc --> per pulm --> plt 107->156-->192-->205 --> smear reviewed # Anemia due to chronic disease --> hgb goal is >7 -> hgb trend 10-->9.8->9 --> transfuse prn --> ferritin is >1000 --> hold off on iron # Elevated ddimer due to covid19++ --> duplex legs is negative --> underlying covid rx # Hypoxia -> due to covid19 # Hypoxemia --> rx same as above # Respiratory failure --> on vent --> per pulm # Pneumonia due to COVID-19 virus --> per pulm rx -> sp remdesivir # Diabetes mellitus out of control --> hgb a1c goal <7 # Poor prognosis # Dvt ppx lovenox sq Appreciate consultation and bowen RN Subjective HEENT: Denies: no symptoms, eye pain, blurred vision, tearing, double vision, ear pain, ear discharge, nose pain, nose congestion, throat pain, throat swelling, mouth pain, mouth swelling, other Cardiovascular: Denies: no symptoms, chest pain, edema, irregular heart rate, lightheadedness, palpitations, syncope, other Gastrointestinal/Abdominal: Denies: no symptoms, abdomen distended, abdominal pain, black stools, tarry stools, blood in stool, constipated, diarrhea, difficulty swallowing, nausea, poor appetite, poor fluid intake, rectal bleeding, vomiting, other Genitourinary: Denies: no symptoms, burning, discharge, frequency, flank pain, hematuria, incontinence, pain, urgency, other Neurologic/Psychiatric: Denies: no symptoms, anxiety, depressed, emotional problems, headache, numbness, paresthesia, pre-existing deficit, seizure, tingling, tremors, weakness, other Hematologic/Lymphatic: Denies: no symptoms, anemia, easy bleeding, easy bruising, adenopathy, other Allergies: Coded Allergies: No Known Allergies (Unverified , 05/28/20) Subjective 06/10 nv, on vent, with ogt, on fentanyl and versed, plt stable 06/11 nv, vent adjusted is on ogt, meds reviewed 06/12 nv, vent, meds noted, labs noted, no bleeding, hgb 10.4 06/13 nv, is on vent, meds reviewed, no bleeding, cbc reviewed 06/14 nv, on vent, tachy, labs reviewed, gross hematuria, febrile overnight, abx 06/17 nv, on vent, labs noted, no major changes, feeling better overnight Objective Objective Current Medications Medications (Trade) Dose Ordered Sig/Zelda Route PRN Reason Start Time Stop Time Status Last Admin Dose Admin Acetaminophen (Tylenol) 650 mg Q4H PRN NG Temp >100.5 05/31/20 21:45 06/30/20 21:44 06/15/20 22:30 Acetaminophen (Tylenol) 650 mg Q6H PRN NG Mild Pain (Pain Scale 1-3) 06/06/20 18:00 07/06/20 17:59 06/13/20 23:10 Chlorhexidine Gluconate (Inna-Hex 2%) 1 applic DAILY@2000 TOPIC 05/30/20 20:00 08/28/20 19:59 06/16/20 19:36 Dextrose (Dextrose 50%) 25 ml Q30M PRN IV Hypoglycemia 06/05/20 10:45 09/03/20 10:44 Dextrose (Dextrose 50%) 50 ml Q30M PRN IV Hypoglycemia 06/05/20 10:45 09/03/20 10:44 Docusate Sodium (Colace) 100 mg Q12HR GT 06/07/20 21:00 07/07/20 20:59 06/16/20 08:25 Enoxaparin Sodium (Lovenox) 40 mg DAILY SUBQ 05/30/20 10:00 08/28/20 09:59 06/17/20 08:52 Fentanyl Citrate 250 ml @ 1 mls/hr Q24H IV 06/13/20 01:15 06/18/20 01:14 06/17/20 02:09 Insulin Aspart (NovoLOG) EVERY 6 HOURS SUBQ 06/07/20 00:00 09/03/20 11:59 06/17/20 06:14 Insulin Aspart (NovoLOG) 23 units EVERY 6 HOURS SUBQ 06/13/20 12:00 09/04/20 08:59 06/17/20 06:14 Methylprednisolone Sodium Succinate (Solu-MEDROL) 20 mg DAILY IVP 06/15/20 09:00 09/13/20 08:59 06/17/20 08:51 Midazolam HCl 100 mg/Dextrose 200 ml @ 0 mls/hr Q24H PRN IV sedation 06/17/20 12:00 06/19/20 11:59 Midazolam HCl 100 mg/Sodium Chloride 200 ml @ 0 mls/hr Q24H PRN IV sedation 06/12/20 16:30 06/17/20 12:00 06/16/20 17:00 Midodrine (Pro-Amatine) 10 mg Q8HR ORAL 06/14/20 14:00 09/12/20 13:59 06/17/20 05:53 Pantoprazole (Protonix) 40 mg Q12HR IVP 06/13/20 21:00 07/03/20 08:59 06/17/20 08:51 Piperacillin Sod/ Tazobactam Sod 3.375 gm/Sodium Chloride 110 ml @ 27.5 mls/hr Q8HR IVPB 06/14/20 22:00 06/21/20 21:59 06/17/20 05:54 Polyethylene Glycol (Miralax) 17 gm BEDTIME GT 06/07/20 21:00 07/07/20 20:59 06/15/20 20:49 Potassium Phosphate 20 mm/ Sodium Chloride 281.6667 ml @ 46.944 m... ONCE ONCE IV 06/17/20 10:30 06/17/20 16:29 06/17/20 11:12 Sodium Chloride 1,000 ml @ 50 mls/hr Q20H IV 06/06/20 08:00 07/06/20 07:59 06/17/20 02:38 Last 24 Hour Vital Signs Date Time Temp Pulse Resp B/P (MAP) Pulse Ox O2 Delivery O2 Flow Rate FiO2 06/17/20 11:00 73 16 107/66 (80) 100 06/17/20 10:45 75 19 110/62 (78) 100 06/17/20 10:30 75 18 115/65 (82) 99 06/17/20 10:15 76 16 112/63 (79) 98 06/17/20 10:00 79 19 109/59 (76) 100 06/17/20 09:45 98 18 122/66 (84) 90 06/17/20 09:30 83 18 123/71 (88) 98 06/17/20 09:15 85 20 123/68 (86) 96 06/17/20 09:15 20 Mechanical Ventilator 06/17/20 09:00 98.5 87 21 122/70 (87) 95 06/17/20 08:30 93 28 138/71 (93) 94 06/17/20 08:15 23 Mechanical Ventilator 06/17/20 08:15 92 23 145/87 (106) 96 06/17/20 08:00 55 06/17/20 08:00 80 06/17/20 08:00 84 15 123/68 (86) 95 06/17/20 08:00 Mechanical Ventilator Mechanical Ventilator 06/17/20 07:35 99 20 50 06/17/20 07:15 20 118/72 Mechanical Ventilator 55 06/17/20 07:15 20 Mechanical Ventilator 55 06/17/20 07:00 79 20 118/72 (87) 98 06/17/20 06:30 78 20 06/17/20 06:30 78 20 111/63 (79) 98 06/17/20 06:15 20 96/50 Mechanical Ventilator 55 06/17/20 06:15 20 Mechanical Ventilator 55 06/17/20 06:00 80 20 96/50 (65) 100 06/17/20 05:30 80 19 103/57 (72) 100 06/17/20 05:15 27 131/75 Mechanical Ventilator 55 06/17/20 05:15 27 Mechanical Ventilator 55 06/17/20 05:00 89 27 131/75 (93) 100 06/17/20 04:30 82 17 93/55 (68) 100 06/17/20 04:15 20 93/57 Mechanical Ventilator 55 06/17/20 04:15 20 Mechanical Ventilator 55 06/17/20 04:00 87 06/17/20 04:00 55 06/17/20 04:00 Mechanical Ventilator Mechanical Ventilator 06/17/20 04:00 99.5 86 20 93/57 (69) 100 06/17/20 03:42 91 22 55 06/17/20 03:30 87 19 94/55 (68) 100 06/17/20 03:15 16 122/64 Mechanical Ventilator 55 06/17/20 03:15 16 Mechanical Ventilator 55 06/17/20 03:00 88 17 122/64 (83) 98 06/17/20 02:30 83 11 112/60 (77) 98 06/17/20 02:15 16 125/73 Mechanical Ventilator 55 06/17/20 02:15 16 Mechanical Ventilator 55 06/17/20 02:09 16 125/73 Mechanical Ventilator 50 06/17/20 02:00 92 23 125/73 (90) 96 06/17/20 01:30 85 6 106/57 (73) 99 06/17/20 01:15 16 113/64 Mechanical Ventilator 55 06/17/20 01:15 16 Mechanical Ventilator 55 06/17/20 01:00 84 16 113/64 (80) 99 06/17/20 00:30 86 17 112/61 (78) 100 06/17/20 00:15 18 116/68 Mechanical Ventilator 55 06/17/20 00:15 18 Mechanical Ventilator 55 06/17/20 00:00 99.0 85 17 108/65 (79) 99 06/17/20 00:00 100 06/17/20 00:00 Mechanical Ventilator Mechanical Ventilator 06/17/20 00:00 55 06/16/20 23:30 95 25 126/86 (99) 92 06/16/20 23:00 91 18 116/68 (84) 98 06/16/20 23:00 89 22 50 06/16/20 22:30 102 21 122/55 (77) 96 06/16/20 22:15 22 125/78 Mechanical Ventilator 100 06/16/20 22:15 22 Mechanical Ventilator 55 06/16/20 22:00 108 26 113/72 (86) 96 06/16/20 22:00 26 113/72 Mechanical Ventilator 100 06/16/20 22:00 26 Mechanical Ventilator 55 06/16/20 21:45 25 138/76 Mechanical Ventilator 55 06/16/20 21:45 25 Mechanical Ventilator 55 06/16/20 21:30 98 23 138/76 (96) 96 06/16/20 21:00 100 25 132/79 (96) 93 06/16/20 20:45 21 134/72 Mechanical Ventilator 55 06/16/20 20:45 21 Mechanical Ventilator 55 06/16/20 20:30 88 23 128/73 (91) 97 06/16/20 20:30 23 123/73 Mechanical Ventilator 55 06/16/20 20:30 23 Mechanical Ventilator 55 06/16/20 20:15 25 139/73 Mechanical Ventilator 55 06/16/20 20:15 25 Mechanical Ventilator 55 06/16/20 20:00 55 06/16/20 20:00 99.0 90 28 143/81 (101) 96 06/16/20 20:00 84 06/16/20 20:00 28 143/81 Mechanical Ventilator 55 06/16/20 20:00 28 Mechanical Ventilator 100 06/16/20 20:00 Mechanical Ventilator Mechanical Ventilator 06/16/20 19:30 83 22 123/67 (85) 95 06/16/20 19:13 87 26 55 06/16/20 19:00 85 25 125/69 (87) 96 06/16/20 19:00 23 125/68 Mechanical Ventilator 40 06/16/20 19:00 23 Mechanical Ventilator 40 06/16/20 18:00 82 23 116/68 (84) 100 06/16/20 18:00 22 116/68 Mechanical Ventilator 40 06/16/20 18:00 22 Mechanical Ventilator 40 06/16/20 17:00 22 106/61 Mechanical Ventilator 40 06/16/20 17:00 20 Mechanical Ventilator 40 06/16/20 17:00 84 23 121/63 (82) 100 06/16/20 16:59 20 Mechanical Ventilator 40 06/16/20 16:00 40 06/16/20 16:00 Mechanical Ventilator Mechanical Ventilator 06/16/20 16:00 20 107/58 Mechanical Ventilator 40 06/16/20 16:00 20 Mechanical Ventilator 40 06/16/20 16:00 86 06/16/20 16:00 99.3 87 24 106/59 (75) 97 06/16/20 15:00 90 24 108/60 (76) 95 06/16/20 15:00 24 108/60 Mechanical Ventilator 40 06/16/20 15:00 24 Mechanical Ventilator 40 06/16/20 14:00 20 109/57 Mechanical Ventilator 40 06/16/20 14:00 20 Mechanical Ventilator 40 06/16/20 14:00 87 21 109/57 (74) 96 06/16/20 13:00 84 20 104/57 (73) 96 06/16/20 13:00 20 104/57 Mechanical Ventilator 40 06/16/20 13:00 20 Mechanical Ventilator 40 06/16/20 12:19 85 21 60 06/16/20 12:00 100.3 83 20 106/58 (74) 97 06/16/20 12:00 40 06/16/20 12:00 Mechanical Ventilator Mechanical Ventilator 06/16/20 12:00 21 106/58 Mechanical Ventilator 40 06/16/20 12:00 21 Mechanical Ventilator 40 06/16/20 11:28 82 06/16/20 11:00 82 20 100/51 (67) 96 06/16/20 11:00 20 100/51 Mechanical Ventilator 40 06/16/20 11:00 20 Mechanical Ventilator 40 06/16/20 10:00 20 108/61 Mechanical Ventilator 40 06/16/20 10:00 20 Mechanical Ventilator 40 06/16/20 10:00 101.1 82 20 108/61 (77) 96 06/16/20 09:00 19 103/50 Mechanical Ventilator 40 06/16/20 09:00 19 Mechanical Ventilator 40 06/16/20 09:00 88 21 103/50 (67) 96 06/16/20 08:00 Mechanical Ventilator Mechanical Ventilator 06/16/20 08:00 40 06/16/20 08:00 20 92/50 Mechanical Ventilator 40 06/16/20 08:00 20 Mechanical Ventilator 40 06/16/20 08:00 101.6 88 20 92/50 (64) 98 06/16/20 07:19 95 06/16/20 07:15 83 20 60 06/16/20 07:00 23 109/58 Mechanical Ventilator 40 06/16/20 07:00 23 Mechanical Ventilator 40 06/16/20 07:00 97 23 109/58 (75) 96 06/16/20 06:30 95 21 06/16/20 06:00 101.6 96 16 109/56 (73) 96 06/16/20 06:00 16 109/56 Mechanical Ventilator 40 06/16/20 06:00 16 Mechanical Ventilator 40 06/16/20 05:00 101.8 90 20 99/51 (67) 97 06/16/20 05:00 20 99/51 Mechanical Ventilator 40 06/16/20 05:00 20 Mechanical Ventilator 40 06/16/20 04:00 95 06/16/20 04:00 95 20 108/53 (71) 97 06/16/20 04:00 30 06/16/20 04:00 20 108/53 Mechanical Ventilator 40 06/16/20 04:00 20 Mechanical Ventilator 40 06/16/20 04:00 Mechanical Ventilator Mechanical Ventilator 06/16/20 03:30 102 20 60 06/16/20 03:00 16 105/53 Mechanical Ventilator 30 06/16/20 03:00 16 Mechanical Ventilator 40 06/16/20 03:00 102.2 94 17 105/53 (70) 96 06/16/20 02:00 91 18 92/55 (67) 96 06/16/20 02:00 18 92/55 Mechanical Ventilator 30 06/16/20 02:00 18 Mechanical Ventilator 40 06/16/20 01:00 12 95/54 Mechanical Ventilator 30 06/16/20 01:00 12 Mechanical Ventilator 40 06/16/20 01:00 102 12 95/54 (68) 98 06/16/20 00:00 30 06/16/20 00:00 Mechanical Ventilator Mechanical Ventilator 06/16/20 00:00 22 107/61 Mechanical Ventilator 30 06/16/20 00:00 22 Mechanical Ventilator 30 06/16/20 00:00 95 06/16/20 00:00 103.8 95 22 107/61 (76) 97 06/15/20 23:30 98 25 60 06/15/20 23:00 104 23 112/65 (81) 97 06/15/20 23:00 23 112/65 Mechanical Ventilator 30 06/15/20 23:00 23 Mechanical Ventilator 40 06/15/20 23:00 102.7 06/15/20 22:00 26 113/65 Mechanical Ventilator 30 06/15/20 22:00 26 Mechanical Ventilator 40 06/15/20 22:00 102.7 111 26 113/65 (81) 96 06/15/20 21:00 26 116/63 Mechanical Ventilator 40 06/15/20 21:00 26 Mechanical Ventilator 40 06/15/20 21:00 110 24 114/70 (85) 96 06/15/20 20:00 120 26 110/64 (79) 97 06/15/20 20:00 112 06/15/20 20:00 23 112/62 Mechanical Ventilator 40 06/15/20 20:00 23 Mechanical Ventilator 40 06/15/20 20:00 30 06/15/20 20:00 Mechanical Ventilator Mechanical Ventilator 06/15/20 19:30 118 28 60 06/15/20 19:00 24 114/74 Mechanical Ventilator 40 06/15/20 19:00 24 Mechanical Ventilator 40 06/15/20 19:00 118 25 108/61 (77) 98 06/15/20 18:00 109 22 110/58 (75) 98 06/15/20 18:00 22 110/58 Endotracheal Tube 40 06/15/20 18:00 24 Endotracheal Tube 40 06/15/20 17:00 116 24 115/65 (82) 97 06/15/20 17:00 24 115/65 Endotracheal Tube 40 06/15/20 17:00 24 Endotracheal Tube 40 06/15/20 16:35 26 Endotracheal Tube 40 06/15/20 16:00 Mechanical Ventilator Mechanical Ventilator 06/15/20 16:00 40 06/15/20 16:00 24 113/64 Endotracheal Tube 40 06/15/20 16:00 24 Endotracheal Tube 40 06/15/20 16:00 115 24 113/64 (80) 96 06/15/20 15:43 128 25 60 06/15/20 15:30 28 140/69 Endotracheal Tube 40 06/15/20 15:20 118 06/15/20 15:00 115 25 124/81 (95) 97 06/15/20 15:00 25 124/81 Endotracheal Tube 40 06/15/20 15:00 25 Endotracheal Tube 40 06/15/20 14:00 114 25 119/75 (90) 95 06/15/20 14:00 25 119/75 Endotracheal Tube 40 06/15/20 14:00 25 Endotracheal Tube 40 06/15/20 13:00 22 125/74 Endotracheal Tube 40 06/15/20 13:00 22 Endotracheal Tube 40 06/15/20 13:00 100 22 125/74 (91) 97 06/15/20 12:13 102 06/15/20 12:00 103 27 60 06/15/20 12:00 20 126/71 Endotracheal Tube 40 06/15/20 12:00 20 Endotracheal Tube 40 06/15/20 12:00 Mechanical Ventilator Mechanical Ventilator 06/15/20 12:00 40 06/15/20 12:00 98.8 103 20 126/71 (89) 98 Intake and Output 06/16/20 06/17/20 19:00 07:00 Intake Total 1760.000 ml 1637.125 ml Output Total 700 ml 760 ml Balance 1060.000 ml 877.125 ml Free Water 40 ml IV Total 1000.000 ml 917.125 ml Tube Feeding 720 ml 720 ml Output Urine Total 700 ml 660 ml Stool Total 100 ml # Bowel Movements 1 3 Labs Test 06/14/20 12:09 06/14/20 13:19 06/14/20 18:16 06/14/20 23:14 POC Whole Blood Glucose 208 MG/DL (74-106) 162 MG/DL (74-106) 154 MG/DL (74-106) Arterial Blood pH 7.302 (7.350-7.450) Arterial Blood Partial Pressure CO2 89.7 mmHg (35.0-45.0) Arterial Blood Partial Pressure O2 116.7 mmHg (75.0-100.0) Arterial Blood HCO3 43.3 mmol/L (22.0-26.0) Arterial Blood Oxygen Saturation 97.8 % (95-100) Arterial Blood Base Excess 15.4 (-2-2) Jeremiah Test Positive Test 06/15/20 05:00 06/15/20 09:37 06/16/20 06:56 06/16/20 10:16 White Blood Count 10.1 K/UL (4.8-10.8) 10.4 K/UL (4.8-10.8) Red Blood Count 2.98 M/UL (4.20-5.40) 2.92 M/UL (4.20-5.40) Hemoglobin 8.6 G/DL (12.0-16.0) 8.6 G/DL (12.0-16.0) Hematocrit 28.0 % (37.0-47.0) 27.0 % (37.0-47.0) Mean Corpuscular Volume 94 FL (80-99) 93 FL (80-99) Mean Corpuscular Hemoglobin 29.0 PG (27.0-31.0) 29.5 PG (27.0-31.0) Mean Corpuscular Hemoglobin Concent 30.9 G/DL (32.0-36.0) 31.9 G/DL (32.0-36.0) Red Cell Distribution Width 15.6 % (11.6-14.8) 15.4 % (11.6-14.8) Platelet Count 200 K/UL (150-450) 213 K/UL (150-450) Mean Platelet Volume 8.5 FL (6.5-10.1) 8.1 FL (6.5-10.1) Neutrophils (%) (Auto) 80.8 % (45.0-75.0) 75.7 % (45.0-75.0) Lymphocytes (%) (Auto) 15.3 % (20.0-45.0) 16.3 % (20.0-45.0) Monocytes (%) (Auto) 1.3 % (1.0-10.0) 2.6 % (1.0-10.0) Eosinophils (%) (Auto) 2.4 % (0.0-3.0) 4.6 % (0.0-3.0) Basophils (%) (Auto) 0.2 % (0.0-2.0) 0.7 % (0.0-2.0) Sodium Level 146 MMOL/L (136-145) 147 MMOL/L (136-145) Potassium Level 3.5 MMOL/L (3.5-5.1) 3.3 MMOL/L (3.5-5.1) Chloride Level 107 MMOL/L (98-107) 110 MMOL/L (98-107) Carbon Dioxide Level 35 MMOL/L (21-32) 32 MMOL/L (21-32) Anion Gap 4 mmol/L (5-15) 5 mmol/L (5-15) Blood Urea Nitrogen 42 mg/dL (7-18) 33 mg/dL (7-18) Creatinine 1.0 MG/DL (0.55-1.30) 0.9 MG/DL (0.55-1.30) Estimat Glomerular Filtration Rate 58.9 mL/min (>60) > 60 mL/min (>60) Glucose Level 144 MG/DL (74-106) 123 MG/DL (74-106) Calcium Level 9.0 MG/DL (8.5-10.1) 8.7 MG/DL (8.5-10.1) Arterial Blood pH 7.413 (7.350-7.450) 7.420 (7.350-7.450) Arterial Blood Partial Pressure CO2 55.0 mmHg (35.0-45.0) 52.5 mmHg (35.0-45.0) Arterial Blood Partial Pressure O2 68.6 mmHg (75.0-100.0) 61.6 mmHg (75.0-100.0) Arterial Blood HCO3 34.3 mmol/L (22.0-26.0) 33.3 mmol/L (22.0-26.0) Arterial Blood Oxygen Saturation 93.4 % (95-100) 91.8 % (95-100) Arterial Blood Base Excess 8.5 (-2-2) 7.7 (-2-2) Jeremiah Test Positive Positive Test 06/17/20 05:18 White Blood Count 9.5 K/UL (4.8-10.8) Red Blood Count 3.10 M/UL (4.20-5.40) Hemoglobin 9.0 G/DL (12.0-16.0) Hematocrit 28.7 % (37.0-47.0) Mean Corpuscular Volume 93 FL (80-99) Mean Corpuscular Hemoglobin 29.0 PG (27.0-31.0) Mean Corpuscular Hemoglobin Concent 31.3 G/DL (32.0-36.0) Red Cell Distribution Width 15.1 % (11.6-14.8) Platelet Count 205 K/UL (150-450) Mean Platelet Volume 8.1 FL (6.5-10.1) Neutrophils (%) (Auto) 77.5 % (45.0-75.0) Lymphocytes (%) (Auto) 12.7 % (20.0-45.0) Monocytes (%) (Auto) 2.4 % (1.0-10.0) Eosinophils (%) (Auto) 6.7 % (0.0-3.0) Basophils (%) (Auto) 0.7 % (0.0-2.0) Sodium Level 147 MMOL/L (136-145) Potassium Level 3.9 MMOL/L (3.5-5.1) Chloride Level 109 MMOL/L (98-107) Carbon Dioxide Level 32 MMOL/L (21-32) Anion Gap 6 mmol/L (5-15) Blood Urea Nitrogen 29 mg/dL (7-18) Creatinine 0.7 MG/DL (0.55-1.30) Estimat Glomerular Filtration Rate > 60 mL/min (>60) Glucose Level 114 MG/DL (74-106) Calcium Level 8.9 MG/DL (8.5-10.1) Phosphorus Level 2.3 MG/DL (2.5-4.9) Magnesium Level 1.8 MG/DL (1.8-2.4) Total Bilirubin 0.7 MG/DL (0.2-1.0) Direct Bilirubin 0.3 MG/DL (0.0-0.3) Aspartate Amino Transf (AST/SGOT) 33 U/L (15-37) Alanine Aminotransferase (ALT/SGPT) 20 U/L (12-78) Alkaline Phosphatase 40 U/L (46-116) C-Reactive Protein, Quantitative 3.2 mg/dL (0.00-0.90) Pro-B-Type Natriuretic Peptide 768 pg/mL (0-125) Total Protein 5.5 G/DL (6.4-8.2) Albumin 2.1 G/DL (3.4-5.0) Height (Feet): 5 Height (Inches): 5.00 Weight (Pounds): 308 Objective GeNL: nv Pulm: vent++ CV: rrr Abd: soft, nt, nd Ext: no cce Myron Condon MD Jun 17, 2020 11:37
--- NOTE | 2020-06-17 11:44 | Infectious Diseases Prog Note ---
Assessment/Plan Assessment/Plan antibiotics : zosyn A 1. covid 19 pneumonia on 55 % Fi O2 with 100 % saturation s/p remdesivir 2. respiratory failure 3. serratia pneumonia P 1. continue zosyn 2. continue solumedrol taper dose 3. continue isolation Subjective ROS Limited/Unobtainable: Yes Allergies: Coded Allergies: No Known Allergies (Unverified , 05/28/20) Objective Last 24 Hour Vital Signs Date Time Temp Pulse Resp B/P (MAP) Pulse Ox O2 Delivery O2 Flow Rate FiO2 06/17/20 11:00 73 16 107/66 (80) 100 06/17/20 10:45 75 19 110/62 (78) 100 06/17/20 10:30 75 18 115/65 (82) 99 06/17/20 10:15 76 16 112/63 (79) 98 06/17/20 10:00 79 19 109/59 (76) 100 06/17/20 09:45 98 18 122/66 (84) 90 06/17/20 09:30 83 18 123/71 (88) 98 06/17/20 09:15 85 20 123/68 (86) 96 06/17/20 09:15 20 Mechanical Ventilator 06/17/20 09:00 98.5 87 21 122/70 (87) 95 06/17/20 08:30 93 28 138/71 (93) 94 06/17/20 08:15 23 Mechanical Ventilator 06/17/20 08:15 92 23 145/87 (106) 96 06/17/20 08:00 55 06/17/20 08:00 80 06/17/20 08:00 84 15 123/68 (86) 95 06/17/20 08:00 Mechanical Ventilator Mechanical Ventilator 06/17/20 07:35 99 20 50 06/17/20 07:15 20 118/72 Mechanical Ventilator 55 06/17/20 07:15 20 Mechanical Ventilator 55 06/17/20 07:00 79 20 118/72 (87) 98 06/17/20 06:30 78 20 06/17/20 06:30 78 20 111/63 (79) 98 06/17/20 06:15 20 96/50 Mechanical Ventilator 55 06/17/20 06:15 20 Mechanical Ventilator 55 06/17/20 06:00 80 20 96/50 (65) 100 06/17/20 05:30 80 19 103/57 (72) 100 06/17/20 05:15 27 131/75 Mechanical Ventilator 55 06/17/20 05:15 27 Mechanical Ventilator 55 06/17/20 05:00 89 27 131/75 (93) 100 06/17/20 04:30 82 17 93/55 (68) 100 06/17/20 04:15 20 93/57 Mechanical Ventilator 55 06/17/20 04:15 20 Mechanical Ventilator 55 06/17/20 04:00 87 06/17/20 04:00 55 06/17/20 04:00 Mechanical Ventilator Mechanical Ventilator 06/17/20 04:00 99.5 86 20 93/57 (69) 100 06/17/20 03:42 91 22 55 06/17/20 03:30 87 19 94/55 (68) 100 06/17/20 03:15 16 122/64 Mechanical Ventilator 55 06/17/20 03:15 16 Mechanical Ventilator 55 06/17/20 03:00 88 17 122/64 (83) 98 06/17/20 02:30 83 11 112/60 (77) 98 06/17/20 02:15 16 125/73 Mechanical Ventilator 55 06/17/20 02:15 16 Mechanical Ventilator 55 06/17/20 02:09 16 125/73 Mechanical Ventilator 50 06/17/20 02:00 92 23 125/73 (90) 96 06/17/20 01:30 85 6 106/57 (73) 99 06/17/20 01:15 16 113/64 Mechanical Ventilator 55 06/17/20 01:15 16 Mechanical Ventilator 55 06/17/20 01:00 84 16 113/64 (80) 99 06/17/20 00:30 86 17 112/61 (78) 100 06/17/20 00:15 18 116/68 Mechanical Ventilator 55 06/17/20 00:15 18 Mechanical Ventilator 55 06/17/20 00:00 99.0 85 17 108/65 (79) 99 06/17/20 00:00 100 06/17/20 00:00 Mechanical Ventilator Mechanical Ventilator 06/17/20 00:00 55 06/16/20 23:30 95 25 126/86 (99) 92 06/16/20 23:00 91 18 116/68 (84) 98 06/16/20 23:00 89 22 50 06/16/20 22:30 102 21 122/55 (77) 96 06/16/20 22:15 22 125/78 Mechanical Ventilator 100 06/16/20 22:15 22 Mechanical Ventilator 55 06/16/20 22:00 108 26 113/72 (86) 96 06/16/20 22:00 26 113/72 Mechanical Ventilator 100 06/16/20 22:00 26 Mechanical Ventilator 55 06/16/20 21:45 25 138/76 Mechanical Ventilator 55 06/16/20 21:45 25 Mechanical Ventilator 55 06/16/20 21:30 98 23 138/76 (96) 96 06/16/20 21:00 100 25 132/79 (96) 93 06/16/20 20:45 21 134/72 Mechanical Ventilator 55 06/16/20 20:45 21 Mechanical Ventilator 55 06/16/20 20:30 88 23 128/73 (91) 97 06/16/20 20:30 23 123/73 Mechanical Ventilator 55 06/16/20 20:30 23 Mechanical Ventilator 55 06/16/20 20:15 25 139/73 Mechanical Ventilator 55 06/16/20 20:15 25 Mechanical Ventilator 55 06/16/20 20:00 55 06/16/20 20:00 99.0 90 28 143/81 (101) 96 06/16/20 20:00 84 06/16/20 20:00 28 143/81 Mechanical Ventilator 55 06/16/20 20:00 28 Mechanical Ventilator 100 06/16/20 20:00 Mechanical Ventilator Mechanical Ventilator 06/16/20 19:30 83 22 123/67 (85) 95 06/16/20 19:13 87 26 55 06/16/20 19:00 85 25 125/69 (87) 96 06/16/20 19:00 23 125/68 Mechanical Ventilator 40 06/16/20 19:00 23 Mechanical Ventilator 40 06/16/20 18:00 82 23 116/68 (84) 100 06/16/20 18:00 22 116/68 Mechanical Ventilator 40 06/16/20 18:00 22 Mechanical Ventilator 40 06/16/20 17:00 22 106/61 Mechanical Ventilator 40 06/16/20 17:00 20 Mechanical Ventilator 40 06/16/20 17:00 84 23 121/63 (82) 100 06/16/20 16:59 20 Mechanical Ventilator 40 06/16/20 16:00 40 06/16/20 16:00 Mechanical Ventilator Mechanical Ventilator 06/16/20 16:00 20 107/58 Mechanical Ventilator 40 06/16/20 16:00 20 Mechanical Ventilator 40 06/16/20 16:00 86 06/16/20 16:00 99.3 87 24 106/59 (75) 97 06/16/20 15:00 90 24 108/60 (76) 95 06/16/20 15:00 24 108/60 Mechanical Ventilator 40 06/16/20 15:00 24 Mechanical Ventilator 40 06/16/20 14:00 20 109/57 Mechanical Ventilator 40 06/16/20 14:00 20 Mechanical Ventilator 40 06/16/20 14:00 87 21 109/57 (74) 96 06/16/20 13:00 84 20 104/57 (73) 96 06/16/20 13:00 20 104/57 Mechanical Ventilator 40 06/16/20 13:00 20 Mechanical Ventilator 40 06/16/20 12:19 85 21 60 06/16/20 12:00 100.3 83 20 106/58 (74) 97 06/16/20 12:00 40 06/16/20 12:00 Mechanical Ventilator Mechanical Ventilator 06/16/20 12:00 21 106/58 Mechanical Ventilator 40 06/16/20 12:00 21 Mechanical Ventilator 40 Height (Feet): 5 Height (Inches): 5.00 Weight (Pounds): 308 Laboratory Tests Test 06/17/20 05:18 White Blood Count 9.5 K/UL (4.8-10.8) Red Blood Count 3.10 M/UL (4.20-5.40) L Hemoglobin 9.0 G/DL (12.0-16.0) L Hematocrit 28.7 % (37.0-47.0) L Mean Corpuscular Volume 93 FL (80-99) Mean Corpuscular Hemoglobin 29.0 PG (27.0-31.0) Mean Corpuscular Hemoglobin Concent 31.3 G/DL (32.0-36.0) L Red Cell Distribution Width 15.1 % (11.6-14.8) H Platelet Count 205 K/UL (150-450) Mean Platelet Volume 8.1 FL (6.5-10.1) Neutrophils (%) (Auto) 77.5 % (45.0-75.0) H Lymphocytes (%) (Auto) 12.7 % (20.0-45.0) L Monocytes (%) (Auto) 2.4 % (1.0-10.0) Eosinophils (%) (Auto) 6.7 % (0.0-3.0) H Basophils (%) (Auto) 0.7 % (0.0-2.0) Sodium Level 147 MMOL/L (136-145) H Potassium Level 3.9 MMOL/L (3.5-5.1) Chloride Level 109 MMOL/L (98-107) H Carbon Dioxide Level 32 MMOL/L (21-32) Anion Gap 6 mmol/L (5-15) Blood Urea Nitrogen 29 mg/dL (7-18) H Creatinine 0.7 MG/DL (0.55-1.30) Estimat Glomerular Filtration Rate > 60 mL/min (>60) Glucose Level 114 MG/DL (74-106) H Calcium Level 8.9 MG/DL (8.5-10.1) Phosphorus Level 2.3 MG/DL (2.5-4.9) L Magnesium Level 1.8 MG/DL (1.8-2.4) Total Bilirubin 0.7 MG/DL (0.2-1.0) Direct Bilirubin 0.3 MG/DL (0.0-0.3) Aspartate Amino Transf (AST/SGOT) 33 U/L (15-37) Alanine Aminotransferase (ALT/SGPT) 20 U/L (12-78) Alkaline Phosphatase 40 U/L (46-116) L C-Reactive Protein, Quantitative 3.2 mg/dL (0.00-0.90) H Pro-B-Type Natriuretic Peptide 768 pg/mL (0-125) H Total Protein 5.5 G/DL (6.4-8.2) L Albumin 2.1 G/DL (3.4-5.0) L Current Medications Medications (Trade) Dose Ordered Sig/Zelda Route PRN Reason Start Time Stop Time Status Last Admin Dose Admin Acetaminophen (Tylenol) 650 mg Q4H PRN NG Temp >100.5 05/31/20 21:45 06/30/20 21:44 06/15/20 22:30 Acetaminophen (Tylenol) 650 mg Q6H PRN NG Mild Pain (Pain Scale 1-3) 06/06/20 18:00 07/06/20 17:59 06/13/20 23:10 Chlorhexidine Gluconate (Inna-Hex 2%) 1 applic DAILY@2000 TOPIC 05/30/20 20:00 08/28/20 19:59 06/16/20 19:36 Dextrose (Dextrose 50%) 25 ml Q30M PRN IV Hypoglycemia 06/05/20 10:45 09/03/20 10:44 Dextrose (Dextrose 50%) 50 ml Q30M PRN IV Hypoglycemia 06/05/20 10:45 09/03/20 10:44 Docusate Sodium (Colace) 100 mg Q12HR GT 06/07/20 21:00 07/07/20 20:59 06/16/20 08:25 Enoxaparin Sodium (Lovenox) 40 mg DAILY SUBQ 05/30/20 10:00 08/28/20 09:59 06/17/20 08:52 Fentanyl Citrate 250 ml @ 1 mls/hr Q24H IV 06/13/20 01:15 06/18/20 01:14 06/17/20 02:09 Insulin Aspart (NovoLOG) EVERY 6 HOURS SUBQ 06/07/20 00:00 09/03/20 11:59 06/17/20 06:14 Insulin Aspart (NovoLOG) 23 units EVERY 6 HOURS SUBQ 06/13/20 12:00 09/04/20 08:59 06/17/20 06:14 Methylprednisolone Sodium Succinate (Solu-MEDROL) 20 mg DAILY IVP 06/15/20 09:00 09/13/20 08:59 06/17/20 08:51 Midazolam HCl 100 mg/Dextrose 200 ml @ 0 mls/hr Q24H PRN IV sedation 06/17/20 12:00 06/19/20 11:59 Midazolam HCl 100 mg/Sodium Chloride 200 ml @ 0 mls/hr Q24H PRN IV sedation 06/12/20 16:30 06/17/20 12:00 06/16/20 17:00 Midodrine (Pro-Amatine) 10 mg Q8HR ORAL 06/14/20 14:00 09/12/20 13:59 06/17/20 05:53 Pantoprazole (Protonix) 40 mg Q12HR IVP 06/13/20 21:00 07/03/20 08:59 06/17/20 08:51 Piperacillin Sod/ Tazobactam Sod 3.375 gm/Sodium Chloride 110 ml @ 27.5 mls/hr Q8HR IVPB 06/14/20 22:00 06/21/20 21:59 06/17/20 05:54 Polyethylene Glycol (Miralax) 17 gm BEDTIME GT 06/07/20 21:00 07/07/20 20:59 06/15/20 20:49 Potassium Phosphate 20 mm/ Sodium Chloride 281.6667 ml @ 46.944 m... ONCE ONCE IV 06/17/20 10:30 06/17/20 16:29 06/17/20 11:12 Sodium Chloride 1,000 ml @ 50 mls/hr Q20H IV 06/06/20 08:00 07/06/20 07:59 06/17/20 02:38 Fili Mcelroy MD Jun 17, 2020 11:44
--- NOTE | 2020-06-17 12:00 | NUR ---
NURSE NOTES: LATE ENTRY: PT IN BED. SEDATED, RESPONSIVE TO PAIN. OPENS EYES TO STIMULI. COOLING BLANKET ON. PT REPOSITIONED. NO BM AT THIS TIME. TUBE FEEDING, NO RESIDUALS. BILATERAL SOFT RESTRAINTS IN PLACE. CIRCULATION CHECK, REMAIN NECESSARY FOR PT SAFETY. SUCTION AND ORAL CARE PROVIDED. URINE LIGHT ANNA TO YELLOW. NO SIGNS OF HEMATURIA.
[2020-06-17] MEDS: D5W IV PRN ×2 (12:15→23:25)
[2020-06-17] MEDS: MIDAZOLAM HCL IV PRN ×2 (12:15→23:25)
--- NOTE | 2020-06-17 12:30 | NUR ---
NURSE NOTES: LAE ENTRY: PT JUDITH-MAKAYLA 149- 3 UNITS + 23UNITS NOVOLOG SUBCUT
--- NOTE | 2020-06-17 14:49 | NUR ---
CASE MANAGEMENT:REVIEW 06/17/20 SI: COVID PNA ACUTE RESPIRATORY FAILURE~ INTUBATED 98.5 84 15 123/68 95% ON VENT SUPPORT W/55% FIO2 H/H-9.0/28.7 BUN+29 IS: FENTANYL GTT VERSED GTT IV SOLUMEDROL 20MG QD IV ZOSYN Q8HRS IVF@50/HR IV PROTONIX Q12 MIDODRINE NG Q8HRS LOVENOX SQ QD : ICU STATUS DCP: FROM HOME PLAN: TITRATE OXYGEN
--- NOTE | 2020-06-17 17:26 | NUR ---
INSURANCE CLINICALS AND REVIEWS FAXED TO [facility] T: [phone] EXT [phone] F: [phone]
--- NOTE | 2020-06-17 18:10 | NUR ---
NURSE NOTES: LATE ENTRY: PT IN BED. SEDATED, RESPONSIVE TO PAIN. OPENS EYES TO STIMULI. COOLING BLANKET OFF. PT REPOSITIONED. NO BM AT THIS TIME. TUBE FEEDING, NO RESIDUALS. BILATERAL SOFT RESTRAINTS IN PLACE. CIRCULATION CHECK, REMAIN NECESSARY FOR PT SAFETY. SUCTION AND ORAL CARE PROVIDED. URINE LIGHT ANNA TO YELLOW. NO SIGNS OF HEMATURIA. WILL CONTINUE TO MONITOR. BLOOD SUGAR 204, 3 UNITS GIVEN + 23UNITS NOVOLOG SUBCUT
--- NOTE | 2020-06-17 19:39 | NUR ---
NURSE HAND-OFF REPORT: Latest Vital Signs: Temperature 97.2 , Pulse 70 , B/P 99 /63 , Respiratory Rate 19 , O2 SAT 100 , Mechanical Ventilator, O2 Flow Rate . Vital Sign Comment: EKG Rhythm: Sinus Rhythm Rhythm change?: N MD Notified?: - MD Response: Latest Meyers Fall Score: 70 Fall Risk: High Risk Safety Measures: Call light Within Reach, Bed Alarm Zone 1, Side Rails Side Rails x2, Bed position Low and Locked. Fall Precautions: Yellow Socks Report given to Morgan Arriaza RN
--- NOTE | 2020-06-17 19:45 | NUR ---
NURSE NOTES: Report received from RAKEL Pillai. Patient is slightly sedated, RASS -2. monitoring coordinator is in place shows sinus rhythm. Patient is intubated, ET size 7, 23 cm on lip, AC mode 15, Peep 8, Fi02 55%. With NGT on left nares, running Vital AF @ cc/hour, upon assessment noted 28 cc residual of previously infused feeding. With marrero catheter in place, drained via gravity, draining dark jordyn urine output. With bilateral soft wrist restraints, no edema and pulses are present. With PICC line on right upper arm, running versed @ 8mg/hour, Fentanyl @ 120mcg/hour and NS @ 50cc/hour. Patient is covid positive, isolation protocol maintained and observed. Safety measures are in place, bed in lowest and locked position, side rails up x 2, will continue plan of care.
[2020-06-17] MEDS: Dyna-Hex 2% Top Sol 2oz TOPIC SCH (20:32)
[2020-06-17] MEDS: Miralax 17gm pkt GT SCH (21:02)
--- NOTE | 2020-06-17 21:30 | NUR ---
NURSE NOTES: Patient still on slightly sedated, Versed @ 8mg/hour and fentanyl @ 120mch/hr, patient kept on bitting the ET tube, place bi-block. Will continue to monitor.
--- NOTE | 2020-06-17 22:00 | NUR ---
NURSE NOTES: Noted that patient is calm and no episode of pulling out her devices, will discontinue the restraints and closely monitor.
--- NOTE | 2020-06-17 22:01 | NUR ---
NURSE NOTES: Placed peep [address] Nava order
[2020-06-18] VITALS (36 sets, daily range): BP systolic 88–140; BP diastolic 50–100
--- NOTE | 2020-06-18 | NUR ---
NURSE NOTES: Vitals were stable, no desaturation noted. Cooling blanket has been on, with temperature of 97.3 via rectal. Oral care done.
[2020-06-18] MEDS: fentaNYL 2500mcg/NS 250ml 250 ML IV SCH ×2 (01:03→08:00)
--- NOTE | 2020-06-18 02:16 | NUR ---
NURSE NOTES: pitting edema noted on bilateral lower extremities, elevated both hands. Feeding tube still on, running Vital AF @ 60cc/hour, residual ranging from 20-35cc/hour. Will continue plan of care.
--- NOTE | 2020-06-18 04:01 | NUR ---
NURSE NOTES: Rectal temperature of 99.6, cooling measures provided, maintained the cooling blanket on. Repositioned and place on semi-fowlers position. Will re-assess the temperature.
[2020-06-18 04:41] LABS: BASOPHILS % (AUTO) 0.3 % (0.0-2.0); EOSINOPHILS % (AUTO) 8.1 % (0.0-3.0); HEMATOCRIT 27.1 % (37.0-47.0); HEMOGLOBIN 8.6 G/DL (12.0-16.0); LYMPHOCYTES % (AUTO) 16.7 % (20.0-45.0); MEAN CORPUSCULAR VOLUME 92 FL (80-99); MONOCYTES % (AUTO) 1.4 % (1.0-10.0); NEUTROPHILS % (AUTO) 73.5 % (45.0-75.0); PLATELET COUNT 231 K/UL (150-450); RED BLOOD COUNT 2.95 M/UL (4.20-5.40); RED CELL DISTRIBUTION WIDTH 15.6 % (11.6-14.8); WHITE BLOOD COUNT 10.5 K/UL (4.8-10.8)
[2020-06-18 04:53] LABS: ANION GAP 3 mmol/L (5-15); BLOOD UREA NITROGEN 25 mg/dL (7-18); CALCIUM 8.6 MG/DL (8.5-10.1); CARBON DIOXIDE 32 MMOL/L (21-32); CHLORIDE 107 MMOL/L (98-107); CREATININE 0.7 MG/DL (0.55-1.30); POTASSIUM 3.9 MMOL/L (3.5-5.1); SODIUM 142 MMOL/L (136-145)
[2020-06-18] MEDS: Piperacillin/Tazobactam 3.375 GM in NS 110 ML IVPB SCH ×3 (05:37→22:23)
[2020-06-18] MEDS: Midodrine 10mg tab ORAL SCH ×3 (05:37→22:23)
[2020-06-18] MEDS: NovoLOG Insulin Flexpen SUBQ SCH ×8 (05:38→23:52)
--- NOTE | 2020-06-18 06:05 | NUR ---
NURSE NOTES: Noted movement on patient's upper and lower extremities. Patient has been off from sedation since 0400 due to her scheduled weaning this morning @ [address]. [address] bilateral soft wrist restraints for safety and to prevent pulling out devices. Will closely monitor.
--- NOTE | 2020-06-18 06:28 | General Progress Note ---
Subjective Allergies: Coded Allergies: No Known Allergies (Unverified , 05/28/20) Subjective events noted interval notes reviewed glucose values are trending down Item Value Date Time Bedside Blood Glucose 97 mg/dl 06/18/20 0600 Bedside Blood Glucose 136 mg/dl H 06/18/20 0000 Bedside Blood Glucose 204 mg/dl H 06/17/20 1800 Bedside Blood Glucose 149 mg/dl H 06/17/20 1314 Bedside Blood Glucose 149 mg/dl H 06/17/20 0614 Bedside Blood Glucose 131 mg/dl H 06/17/20 0003 Objective Last 24 Hour Vital Signs Date Time Temp Pulse Resp B/P (MAP) Pulse Ox O2 Delivery O2 Flow Rate FiO2 06/18/20 06:00 115 23 136/74 (94) 96 06/18/20 05:00 96 21 118/62 (80) 95 06/18/20 04:15 20 Mechanical Ventilator 06/18/20 04:00 86 06/18/20 04:00 99.6 105 22 100/54 (69) 97 06/18/20 04:00 Mechanical Ventilator Mechanical Ventilator 06/18/20 04:00 55 06/18/20 03:34 96 21 55 06/18/20 03:15 20 Mechanical Ventilator 06/18/20 03:15 28 140/79 Mechanical Ventilator 50 06/18/20 03:00 103 25 99/56 (70) 94 06/18/20 02:15 21 Mechanical Ventilator 06/18/20 02:15 26 133/76 Mechanical Ventilator 50 06/18/20 02:00 91 18 98/59 (72) 95 06/18/20 01:15 19 Mechanical Ventilator 06/18/20 01:15 21 112/57 Mechanical Ventilator 06/18/20 01:03 20 112/57 Mechanical Ventilator 55 06/18/20 01:00 88 21 112/57 (75) 97 06/18/20 00:15 19 Mechanical Ventilator 55 06/18/20 00:15 20 105/70 Mechanical Ventilator 06/18/20 00:00 84 06/18/20 00:00 55 06/18/20 00:00 Mechanical Ventilator Mechanical Ventilator 06/18/20 00:00 98.7 84 20 116/57 (76) 96 06/17/20 23:25 22 Mechanical Ventilator 55 06/17/20 23:15 82 20 50 1/25/21 23:15 20 Mechanical Ventilator 55 06/17/20 23:15 20 103/57 Mechanical Ventilator 55 06/17/20 23:00 86 20 109/55 (73) 93 06/17/20 22:15 19 Endotracheal Tube 06/17/20 22:15 21 105/62 Endotracheal Tube 06/17/20 22:00 82 21 105/62 (76) 96 06/17/20 21:15 20 06/17/20 21:15 18 95/53 Endotracheal Tube 06/17/20 21:00 75 18 95/53 (67) 98 06/17/20 20:15 29 Endotracheal Tube 06/17/20 20:15 19 94/54 Endotracheal Tube 06/17/20 20:00 96.8 72 19 94/54 (67) 100 06/17/20 20:00 55 06/17/20 20:00 72 06/17/20 20:00 Mechanical Ventilator Mechanical Ventilator 06/17/20 19:17 70 19 50 06/17/20 19:15 30 Endotracheal Tube 06/17/20 19:15 19 93/58 Endotracheal Tube 06/17/20 19:00 68 17 93/58 (70) 100 06/17/20 18:00 70 19 99/63 (75) 100 06/17/20 17:45 67 16 105/67 (80) 99 06/17/20 17:30 69 18 101/67 (78) 99 06/17/20 17:15 73 16 114/68 (83) 95 06/17/20 17:15 Mechanical Ventilator 06/17/20 17:15 17 114/68 Mechanical Ventilator 06/17/20 17:00 76 17 113/73 (86) 94 06/17/20 16:45 84 31 113/63 (80) 93 06/17/20 16:30 69 5 103/60 (74) 100 06/17/20 16:15 Mechanical Ventilator 06/17/20 16:15 2 95/55 06/17/20 16:15 69 1 95/55 (68) 100 06/17/20 16:00 72 06/17/20 16:00 55 06/17/20 16:00 97.2 72 0 94/58 (70) 100 06/17/20 16:00 Mechanical Ventilator Mechanical Ventilator 06/17/20 15:45 69 0 100/58 (72) 100 06/17/20 15:39 82 20 50 06/17/20 15:30 67 15 107/62 (77) 100 06/17/20 15:15 73 0 109/61 (77) 100 06/17/20 15:15 Mechanical Ventilator 06/17/20 15:15 0 102/60 Mechanical Ventilator 06/17/20 15:00 71 2 101/64 (76) 100 06/17/20 14:30 71 0 100/60 (73) 100 06/17/20 14:15 Mechanical Ventilator 06/17/20 14:15 71 0 102/60 (74) 100 06/17/20 14:00 79 16 98/60 (73) 100 06/17/20 13:30 73 16 93/58 (70) 100 06/17/20 13:15 Mechanical Ventilator 06/17/20 13:15 17 102/61 Mechanical Ventilator 06/17/20 13:15 72 17 102/61 (75) 100 06/17/20 13:00 76 17 106/63 (77) 100 06/17/20 12:45 74 17 107/62 (77) 100 06/17/20 12:30 78 16 113/64 (80) 98 06/17/20 12:15 Mechanical Ventilator 06/17/20 12:15 76 15 100/58 (72) 99 06/17/20 12:00 75 06/17/20 12:00 Mechanical Ventilator Mechanical Ventilator 06/17/20 12:00 98.3 71 15 115/68 (84) 97 06/17/20 12:00 55 06/17/20 11:39 89 22 50 06/17/20 11:12 18 118/69 06/17/20 11:00 73 16 107/66 (80) 100 06/17/20 10:45 75 19 110/62 (78) 100 06/17/20 10:30 75 18 115/65 (82) 99 06/17/20 10:15 18 112/63 Mechanical Ventilator 06/17/20 10:15 76 16 112/63 (79) 98 06/17/20 10:00 79 19 109/59 (76) 100 06/17/20 09:45 98 18 122/66 (84) 90 06/17/20 09:30 83 18 123/71 (88) 98 06/17/20 09:15 85 20 123/68 (86) 96 06/17/20 09:15 17 122/66 Mechanical Ventilator 06/17/20 09:15 20 Mechanical Ventilator 06/17/20 09:00 98.5 87 21 122/70 (87) 95 06/17/20 08:30 93 28 138/71 (93) 94 06/17/20 08:15 19 148/87 Mechanical Ventilator 06/17/20 08:15 23 Mechanical Ventilator 06/17/20 08:15 92 23 145/87 (106) 96 06/17/20 08:00 55 06/17/20 08:00 80 06/17/20 08:00 84 15 123/68 (86) 95 06/17/20 08:00 Mechanical Ventilator Mechanical Ventilator 06/17/20 07:35 99 20 50 06/17/20 07:15 20 118/72 Mechanical Ventilator 55 06/17/20 07:15 20 Mechanical Ventilator 55 06/17/20 07:00 79 20 118/72 (87) 98 06/17/20 06:30 78 20 06/17/20 06:30 78 20 111/63 (79) 98 Intake and Output 06/17/20 06/18/20 19:00 07:00 Intake Total 1665.5 ml 1578 ml Output Total 575 ml 540 ml Balance 1090.5 ml 1038 ml Free Water 50 ml IV Total 945.5 ml 818 ml Tube Feeding 720 ml 660 ml Other 50 ml Output Urine Total 575 ml 540 ml # Bowel Movements 2 Laboratory Tests 06/17/20 12:20: POC Whole Blood Glucose [Pending] 06/17/20 17:02: POC Whole Blood Glucose [Pending] 06/17/20 23:33: POC Whole Blood Glucose 136H 06/18/20 03:07: POC Whole Blood Glucose 97 06/18/20 04:00: White Blood Count 10.5, Red Blood Count 2.95L, Hemoglobin 8.6L, Hematocrit 27.1L , Mean Corpuscular Volume 92, Mean Corpuscular Hemoglobin 29.2, Mean Corpuscular Hemoglobin Concent 31.9L, Red Cell Distribution Width 15.6H, Platelet Count 231, Mean Platelet Volume 8.7, Neutrophils (%) (Auto) 73.5, Lymphocytes (%) (Auto) 16.7L, Monocytes (%) (Auto) 1.4, Eosinophils (%) (Auto) 8.1H, Basophils (%) (Auto) 0.3, Sodium Level 142, Potassium Level 3.9, Chloride Level 107, Carbon Dioxide Level 32, Anion Gap 3L, Blood Urea Nitrogen 25H, Creatinine 0.7, Estimat Glomerular Filtration Rate > 60, Glucose Level 96, Calcium Level 8.6 Height (Feet): 5 Height (Inches): 5.00 Weight (Pounds): 308 Objective Current Medications Medications (Trade) Dose Ordered Sig/Zelda Route PRN Reason Start Time Stop Time Status Last Admin Dose Admin Acetaminophen (Tylenol) 650 mg Q4H PRN NG Temp >100.5 05/31/20 21:45 06/30/20 21:44 06/15/20 22:30 Acetaminophen (Tylenol) 650 mg Q6H PRN NG Mild Pain (Pain Scale 1-3) 06/06/20 18:00 07/06/20 17:59 06/13/20 23:10 Chlorhexidine Gluconate (Inna-Hex 2%) 1 applic DAILY@2000 TOPIC 05/30/20 20:00 08/28/20 19:59 06/17/20 20:32 Dextrose (Dextrose 50%) 25 ml Q30M PRN IV Hypoglycemia 06/05/20 10:45 09/03/20 10:44 Dextrose (Dextrose 50%) 50 ml Q30M PRN IV Hypoglycemia 06/05/20 10:45 09/03/20 10:44 Docusate Sodium (Colace) 100 mg Q12HR GT 06/07/20 21:00 07/07/20 20:59 06/17/20 21:02 Enoxaparin Sodium (Lovenox) 40 mg DAILY SUBQ 05/30/20 10:00 08/28/20 09:59 06/17/20 08:52 Fentanyl Citrate 250 ml @ 1 mls/hr Q24H IV 06/18/20 08:00 06/20/20 07:59 Insulin Aspart (NovoLOG) EVERY 6 HOURS SUBQ 06/07/20 00:00 09/03/20 11:59 06/17/20 17:39 Insulin Aspart (NovoLOG) 23 units EVERY 6 HOURS SUBQ 06/13/20 12:00 09/04/20 08:59 06/17/20 23:38 Methylprednisolone Sodium Succinate (Solu-MEDROL) 10 mg DAILY IVP 06/18/20 09:00 09/16/20 08:59 Midazolam HCl 100 mg/Dextrose 200 ml @ 0 mls/hr Q24H PRN IV sedation 06/17/20 12:00 06/19/20 11:59 06/17/20 23:25 Midodrine (Pro-Amatine) 10 mg Q8HR ORAL 06/14/20 14:00 09/12/20 13:59 06/18/20 05:37 Pantoprazole (Protonix) 40 mg Q12HR IVP 06/13/20 21:00 07/03/20 08:59 06/17/20 21:02 Piperacillin Sod/ Tazobactam Sod 3.375 gm/Sodium Chloride 110 ml @ 27.5 mls/hr Q8HR IVPB 06/14/20 22:00 06/21/20 21:59 06/18/20 05:37 Polyethylene Glycol (Miralax) 17 gm BEDTIME GT 06/07/20 21:00 07/07/20 20:59 06/17/20 21:02 Sodium Chloride 1,000 ml @ 50 mls/hr Q20H IV 06/06/20 08:00 07/06/20 07:59 06/17/20 21:23 Assessment/Plan Problem List: (1) Diabetes mellitus out of control ICD Codes: E11.65 - Type 2 diabetes mellitus with hyperglycemia SNOMED: 52470700, 140442194 (2) Pneumonia due to COVID-19 virus ICD Codes: U07.1 - COVID-19; J12.82 - Pneumonia due to coronavirus disease 2019 SNOMED: 327165374997448619 (3) Respiratory distress ICD Codes: R06.03 - Acute respiratory distress; J12.82 - Pneumonia due to coronavirus disease 2019 SNOMED: 783505804 Status: unchanged Assessment/Plan: reduce Novolog 23 to 18 units every 6 hours continue Novolog sliding scale every 6 hours Huber Adame MD Jun 18, 2020 06:28
--- NOTE | 2020-06-18 06:44 | Hematology/Onc Progress Note ---
Assessment/Plan Assessment/Plan # Thrombocytopenia is due to infection/underlying covid19+++ --> ABX ceftriaxone -->zosyn --> on steriods likely cause of initial wbc --> per pulm --> plt 107->156-->192-->205 --> smear reviewed # Anemia due to chronic disease --> hgb goal is >7 -> hgb trend 10-->9.8->9-->8. --> transfuse prn --> ferritin is >1000 --> hold off on iron # Elevated ddimer due to covid19++ --> duplex legs is negative --> underlying covid rx # Hypoxia -> due to covid19 # Hypoxemia --> rx same as above # Respiratory failure --> on vent --> per pulm # Pneumonia due to COVID-19 virus --> per pulm rx -> sp remdesivir # Diabetes mellitus out of control --> hgb a1c goal <7 # Poor prognosis # Dvt ppx lovenox sq Appreciate consultation and bowen RN Subjective HEENT: Denies: no symptoms, eye pain, blurred vision, tearing, double vision, ear pain, ear discharge, nose pain, nose congestion, throat pain, throat swelling, mouth pain, mouth swelling, other Cardiovascular: Denies: no symptoms, chest pain, edema, irregular heart rate, lightheadedness, palpitations, syncope, other Genitourinary: Denies: no symptoms, burning, discharge, frequency, flank pain, hematuria, incontinence, pain, urgency, other Endocrine: Denies: no symptoms, excessive sweating, flushing, intolerance to cold, intolerance to heat, increased hunger, increased thirst, increased urine, unexplained weight gain, unexplained weight loss, other Hematologic/Lymphatic: Denies: no symptoms, anemia, easy bleeding, easy bruising, adenopathy, other Allergies: Coded Allergies: No Known Allergies (Unverified , 05/28/20) Subjective 06/10 nv, on vent, with ogt, on fentanyl and versed, plt stable 06/11 nv, vent adjusted is on ogt, meds reviewed 06/12 nv, vent, meds noted, labs noted, no bleeding, hgb 10.4 06/13 nv, is on vent, meds reviewed, no bleeding, cbc reviewed 06/14 nv, on vent, tachy, labs reviewed, gross hematuria, febrile overnight, abx 06/17 nv, on vent, labs noted, no major changes, feeling better overnight 06/18 nv, meds reviewed, labs noted, no major events, hgb 8.6 Objective Objective Current Medications Medications (Trade) Dose Ordered Sig/Zelda Route PRN Reason Start Time Stop Time Status Last Admin Dose Admin Acetaminophen (Tylenol) 650 mg Q4H PRN NG Temp >100.5 05/31/20 21:45 06/30/20 21:44 06/15/20 22:30 Acetaminophen (Tylenol) 650 mg Q6H PRN NG Mild Pain (Pain Scale 1-3) 06/06/20 18:00 07/06/20 17:59 06/13/20 23:10 Chlorhexidine Gluconate (Inna-Hex 2%) 1 applic DAILY@2000 TOPIC 05/30/20 20:00 08/28/20 19:59 06/17/20 20:32 Dextrose (Dextrose 50%) 25 ml Q30M PRN IV Hypoglycemia 06/05/20 10:45 09/03/20 10:44 Dextrose (Dextrose 50%) 50 ml Q30M PRN IV Hypoglycemia 06/05/20 10:45 09/03/20 10:44 Docusate Sodium (Colace) 100 mg Q12HR GT 06/07/20 21:00 07/07/20 20:59 06/17/20 21:02 Enoxaparin Sodium (Lovenox) 40 mg DAILY SUBQ 05/30/20 10:00 08/28/20 09:59 06/17/20 08:52 Fentanyl Citrate 250 ml @ 1 mls/hr Q24H IV 06/18/20 08:00 06/20/20 07:59 Insulin Aspart (NovoLOG) EVERY 6 HOURS SUBQ 06/07/20 00:00 09/03/20 11:59 06/17/20 17:39 Insulin Aspart (NovoLOG) 18 units EVERY 6 HOURS SUBQ 06/18/20 12:00 09/04/20 08:59 Methylprednisolone Sodium Succinate (Solu-MEDROL) 10 mg DAILY IVP 06/18/20 09:00 09/16/20 08:59 Midazolam HCl 100 mg/Dextrose 200 ml @ 0 mls/hr Q24H PRN IV sedation 06/17/20 12:00 06/19/20 11:59 06/17/20 23:25 Midodrine (Pro-Amatine) 10 mg Q8HR ORAL 06/14/20 14:00 09/12/20 13:59 06/18/20 05:37 Pantoprazole (Protonix) 40 mg Q12HR IVP 06/13/20 21:00 07/03/20 08:59 06/17/20 21:02 Piperacillin Sod/ Tazobactam Sod 3.375 gm/Sodium Chloride 110 ml @ 27.5 mls/hr Q8HR IVPB 06/14/20 22:00 06/21/20 21:59 06/18/20 05:37 Polyethylene Glycol (Miralax) 17 gm BEDTIME GT 06/07/20 21:00 07/07/20 20:59 06/17/20 21:02 Sodium Chloride 1,000 ml @ 50 mls/hr Q20H IV 06/06/20 08:00 07/06/20 07:59 06/17/20 21:23 Last 24 Hour Vital Signs Date Time Temp Pulse Resp B/P (MAP) Pulse Ox O2 Delivery O2 Flow Rate FiO2 06/18/20 06:00 115 23 136/74 (94) 96 06/18/20 05:00 96 21 118/62 (80) 95 06/18/20 04:15 20 Mechanical Ventilator 06/18/20 04:00 86 06/18/20 04:00 99.6 105 22 100/54 (69) 97 06/18/20 04:00 Mechanical Ventilator Mechanical Ventilator 06/18/20 04:00 55 06/18/20 03:34 96 21 55 06/18/20 03:15 20 Mechanical Ventilator 06/18/20 03:15 28 140/79 Mechanical Ventilator 50 06/18/20 03:00 103 25 99/56 (70) 94 06/18/20 02:15 21 Mechanical Ventilator 06/18/20 02:15 26 133/76 Mechanical Ventilator 50 06/18/20 02:00 91 18 98/59 (72) 95 06/18/20 01:15 19 Mechanical Ventilator 06/18/20 01:15 21 112/57 Mechanical Ventilator 06/18/20 01:03 20 112/57 Mechanical Ventilator 55 06/18/20 01:00 88 21 112/57 (75) 97 06/18/20 00:15 19 Mechanical Ventilator 55 06/18/20 00:15 20 105/70 Mechanical Ventilator 06/18/20 00:00 84 06/18/20 00:00 55 06/18/20 00:00 Mechanical Ventilator Mechanical Ventilator 06/18/20 00:00 98.7 84 20 116/57 (76) 96 06/17/20 23:25 22 Mechanical Ventilator 55 06/17/20 23:15 82 20 50 06/17/20 23:15 20 Mechanical Ventilator 55 06/17/20 23:15 20 103/57 Mechanical Ventilator 55 06/17/20 23:00 86 20 109/55 (73) 93 06/17/20 22:15 19 Endotracheal Tube 06/17/20 22:15 21 105/62 Endotracheal Tube 06/17/20 22:00 82 21 105/62 (76) 96 06/17/20 21:15 20 06/17/20 21:15 18 95/53 Endotracheal Tube 06/17/20 21:00 75 18 95/53 (67) 98 06/17/20 20:15 29 Endotracheal Tube 06/17/20 20:15 19 94/54 Endotracheal Tube 06/17/20 20:00 96.8 72 19 94/54 (67) 100 06/17/20 20:00 55 06/17/20 20:00 72 06/17/20 20:00 Mechanical Ventilator Mechanical Ventilator 06/17/20 19:17 70 19 50 06/17/20 19:15 30 Endotracheal Tube 06/17/20 19:15 19 93/58 Endotracheal Tube 06/17/20 19:00 68 17 93/58 (70) 100 06/17/20 18:00 70 19 99/63 (75) 100 06/17/20 17:45 67 16 105/67 (80) 99 06/17/20 17:30 69 18 101/67 (78) 99 06/17/20 17:15 73 16 114/68 (83) 95 06/17/20 17:15 Mechanical Ventilator 06/17/20 17:15 17 114/68 Mechanical Ventilator 06/17/20 17:00 76 17 113/73 (86) 94 06/17/20 16:45 84 31 113/63 (80) 93 06/17/20 16:30 69 5 103/60 (74) 100 06/17/20 16:15 Mechanical Ventilator 06/17/20 16:15 2 95/55 06/17/20 16:15 69 1 95/55 (68) 100 06/17/20 16:00 72 06/17/20 16:00 55 06/17/20 16:00 97.2 72 0 94/58 (70) 100 06/17/20 16:00 Mechanical Ventilator Mechanical Ventilator 06/17/20 15:45 69 0 100/58 (72) 100 06/17/20 15:39 82 20 50 06/17/20 15:30 67 15 107/62 (77) 100 06/17/20 15:15 73 0 109/61 (77) 100 06/17/20 15:15 Mechanical Ventilator 06/17/20 15:15 0 102/60 Mechanical Ventilator 06/17/20 15:00 71 2 101/64 (76) 100 06/17/20 14:30 71 0 100/60 (73) 100 06/17/20 14:15 Mechanical Ventilator 06/17/20 14:15 71 0 102/60 (74) 100 06/17/20 14:00 79 16 98/60 (73) 100 06/17/20 13:30 73 16 93/58 (70) 100 06/17/20 13:15 Mechanical Ventilator 06/17/20 13:15 17 102/61 Mechanical Ventilator 06/17/20 13:15 72 17 102/61 (75) 100 06/17/20 13:00 76 17 106/63 (77) 100 06/17/20 12:45 74 17 107/62 (77) 100 06/17/20 12:30 78 16 113/64 (80) 98 06/17/20 12:15 Mechanical Ventilator 06/17/20 12:15 76 15 100/58 (72) 99 06/17/20 12:00 75 06/17/20 12:00 Mechanical Ventilator Mechanical Ventilator 06/17/20 12:00 98.3 71 15 115/68 (84) 97 06/17/20 12:00 55 06/17/20 11:39 89 22 50 06/17/20 11:12 18 118/69 06/17/20 11:00 73 16 107/66 (80) 100 06/17/20 10:45 75 19 110/62 (78) 100 06/17/20 10:30 75 18 115/65 (82) 99 06/17/20 10:15 18 112/63 Mechanical Ventilator 06/17/20 10:15 76 16 112/63 (79) 98 06/17/20 10:00 79 19 109/59 (76) 100 06/17/20 09:45 98 18 122/66 (84) 90 06/17/20 09:30 83 18 123/71 (88) 98 06/17/20 09:15 85 20 123/68 (86) 96 06/17/20 09:15 17 122/66 Mechanical Ventilator 06/17/20 09:15 20 Mechanical Ventilator 06/17/20 09:00 98.5 87 21 122/70 (87) 95 06/17/20 08:30 93 28 138/71 (93) 94 06/17/20 08:15 19 148/87 Mechanical Ventilator 06/17/20 08:15 23 Mechanical Ventilator 06/17/20 08:15 92 23 145/87 (106) 96 06/17/20 08:00 55 06/17/20 08:00 80 06/17/20 08:00 84 15 123/68 (86) 95 06/17/20 08:00 Mechanical Ventilator Mechanical Ventilator 06/17/20 07:35 99 20 50 06/17/20 07:15 20 118/72 Mechanical Ventilator 55 06/17/20 07:15 20 Mechanical Ventilator 55 06/17/20 07:00 79 20 118/72 (87) 98 06/17/20 06:30 78 20 06/17/20 06:30 78 20 111/63 (79) 98 06/17/20 06:15 20 96/50 Mechanical Ventilator 55 06/17/20 06:15 20 Mechanical Ventilator 55 06/17/20 06:00 80 20 96/50 (65) 100 06/17/20 05:30 80 19 103/57 (72) 100 06/17/20 05:15 27 131/75 Mechanical Ventilator 55 06/17/20 05:15 27 Mechanical Ventilator 55 06/17/20 05:00 89 27 131/75 (93) 100 06/17/20 04:30 82 17 93/55 (68) 100 06/17/20 04:15 20 93/57 Mechanical Ventilator 55 06/17/20 04:15 20 Mechanical Ventilator 55 06/17/20 04:00 87 06/17/20 04:00 55 06/17/20 04:00 Mechanical Ventilator Mechanical Ventilator 06/17/20 04:00 99.5 86 20 93/57 (69) 100 06/17/20 03:42 91 22 55 06/17/20 03:30 87 19 94/55 (68) 100 06/17/20 03:15 16 122/64 Mechanical Ventilator 55 06/17/20 03:15 16 Mechanical Ventilator 55 06/17/20 03:00 88 17 122/64 (83) 98 06/17/20 02:30 83 11 112/60 (77) 98 06/17/20 02:15 16 125/73 Mechanical Ventilator 55 06/17/20 02:15 16 Mechanical Ventilator 55 06/17/20 02:09 16 125/73 Mechanical Ventilator 50 06/17/20 02:00 92 23 125/73 (90) 96 06/17/20 01:30 85 6 106/57 (73) 99 06/17/20 01:15 16 113/64 Mechanical Ventilator 55 06/17/20 01:15 16 Mechanical Ventilator 55 06/17/20 01:00 84 16 113/64 (80) 99 06/17/20 00:30 86 17 112/61 (78) 100 06/17/20 00:15 18 116/68 Mechanical Ventilator 55 06/17/20 00:15 18 Mechanical Ventilator 55 06/17/20 00:00 99.0 85 17 108/65 (79) 99 06/17/20 00:00 100 06/17/20 00:00 Mechanical Ventilator Mechanical Ventilator 06/17/20 00:00 55 06/16/20 23:30 95 25 126/86 (99) 92 06/16/20 23:00 91 18 116/68 (84) 98 06/16/20 23:00 89 22 50 06/16/20 22:30 102 21 122/55 (77) 96 06/16/20 22:15 22 125/78 Mechanical Ventilator 100 06/16/20 22:15 22 Mechanical Ventilator 55 06/16/20 22:00 108 26 113/72 (86) 96 06/16/20 22:00 26 113/72 Mechanical Ventilator 100 06/16/20 22:00 26 Mechanical Ventilator 55 06/16/20 21:45 25 138/76 Mechanical Ventilator 55 06/16/20 21:45 25 Mechanical Ventilator 55 06/16/20 21:30 98 23 138/76 (96) 96 06/16/20 21:00 100 25 132/79 (96) 93 06/16/20 20:45 21 134/72 Mechanical Ventilator 55 06/16/20 20:45 21 Mechanical Ventilator 55 06/16/20 20:30 88 23 128/73 (91) 97 06/16/20 20:30 23 123/73 Mechanical Ventilator 55 06/16/20 20:30 23 Mechanical Ventilator 55 06/16/20 20:15 25 139/73 Mechanical Ventilator 55 06/16/20 20:15 25 Mechanical Ventilator 55 06/16/20 20:00 55 06/16/20 20:00 99.0 90 28 143/81 (101) 96 06/16/20 20:00 84 06/16/20 20:00 28 143/81 Mechanical Ventilator 55 06/16/20 20:00 28 Mechanical Ventilator 100 06/16/20 20:00 Mechanical Ventilator Mechanical Ventilator 06/16/20 19:30 83 22 123/67 (85) 95 06/16/20 19:13 87 26 55 06/16/20 19:00 85 25 125/69 (87) 96 06/16/20 19:00 23 125/68 Mechanical Ventilator 40 06/16/20 19:00 23 Mechanical Ventilator 40 06/16/20 18:00 82 23 116/68 (84) 100 06/16/20 18:00 22 116/68 Mechanical Ventilator 40 06/16/20 18:00 22 Mechanical Ventilator 40 06/16/20 17:00 22 106/61 Mechanical Ventilator 40 06/16/20 17:00 20 Mechanical Ventilator 40 06/16/20 17:00 84 23 121/63 (82) 100 06/16/20 16:59 20 Mechanical Ventilator 40 06/16/20 16:00 40 06/16/20 16:00 Mechanical Ventilator Mechanical Ventilator 06/16/20 16:00 20 107/58 Mechanical Ventilator 40 06/16/20 16:00 20 Mechanical Ventilator 40 06/16/20 16:00 86 06/16/20 16:00 99.3 87 24 106/59 (75) 97 06/16/20 15:00 90 24 108/60 (76) 95 06/16/20 15:00 24 108/60 Mechanical Ventilator 40 06/16/20 15:00 24 Mechanical Ventilator 40 06/16/20 14:00 20 109/57 Mechanical Ventilator 40 06/16/20 14:00 20 Mechanical Ventilator 40 06/16/20 14:00 87 21 109/57 (74) 96 06/16/20 13:00 84 20 104/57 (73) 96 06/16/20 13:00 20 104/57 Mechanical Ventilator 40 06/16/20 13:00 20 Mechanical Ventilator 40 06/16/20 12:19 85 21 60 06/16/20 12:00 100.3 83 20 106/58 (74) 97 06/16/20 12:00 40 06/16/20 12:00 Mechanical Ventilator Mechanical Ventilator 06/16/20 12:00 21 106/58 Mechanical Ventilator 40 06/16/20 12:00 21 Mechanical Ventilator 40 06/16/20 11:28 82 06/16/20 11:00 82 20 100/51 (67) 96 06/16/20 11:00 20 100/51 Mechanical Ventilator 40 06/16/20 11:00 20 Mechanical Ventilator 40 06/16/20 10:00 20 108/61 Mechanical Ventilator 40 06/16/20 10:00 20 Mechanical Ventilator 40 06/16/20 10:00 101.1 82 20 108/61 (77) 96 06/16/20 09:00 19 103/50 Mechanical Ventilator 40 06/16/20 09:00 19 Mechanical Ventilator 40 06/16/20 09:00 88 21 103/50 (67) 96 06/16/20 08:00 Mechanical Ventilator Mechanical Ventilator 06/16/20 08:00 40 06/16/20 08:00 20 92/50 Mechanical Ventilator 40 06/16/20 08:00 20 Mechanical Ventilator 40 06/16/20 08:00 101.6 88 20 92/50 (64) 98 06/16/20 07:19 95 06/16/20 07:15 83 20 60 06/16/20 07:00 23 109/58 Mechanical Ventilator 40 06/16/20 07:00 23 Mechanical Ventilator 40 06/16/20 07:00 97 23 109/58 (75) 96 Intake and Output 06/17/20 06/18/20 19:00 07:00 Intake Total 1665.5 ml 1578 ml Output Total 575 ml 540 ml Balance 1090.5 ml 1038 ml Free Water 50 ml IV Total 945.5 ml 818 ml Tube Feeding 720 ml 660 ml Other 50 ml Output Urine Total 575 ml 540 ml # Bowel Movements 2 Labs Test 06/15/20 09:37 06/16/20 06:56 06/16/20 10:16 06/16/20 11:46 Arterial Blood pH 7.413 (7.350-7.450) 7.420 (7.350-7.450) Arterial Blood Partial Pressure CO2 55.0 mmHg (35.0-45.0) 52.5 mmHg (35.0-45.0) Arterial Blood Partial Pressure O2 68.6 mmHg (75.0-100.0) 61.6 mmHg (75.0-100.0) Arterial Blood HCO3 34.3 mmol/L (22.0-26.0) 33.3 mmol/L (22.0-26.0) Arterial Blood Oxygen Saturation 93.4 % (95-100) 91.8 % (95-100) Arterial Blood Base Excess 8.5 (-2-2) 7.7 (-2-2) Jeremiah Test Positive Positive White Blood Count 10.4 K/UL (4.8-10.8) Red Blood Count 2.92 M/UL (4.20-5.40) Hemoglobin 8.6 G/DL (12.0-16.0) Hematocrit 27.0 % (37.0-47.0) Mean Corpuscular Volume 93 FL (80-99) Mean Corpuscular Hemoglobin 29.5 PG (27.0-31.0) Mean Corpuscular Hemoglobin Concent 31.9 G/DL (32.0-36.0) Red Cell Distribution Width 15.4 % (11.6-14.8) Platelet Count 213 K/UL (150-450) Mean Platelet Volume 8.1 FL (6.5-10.1) Neutrophils (%) (Auto) 75.7 % (45.0-75.0) Lymphocytes (%) (Auto) 16.3 % (20.0-45.0) Monocytes (%) (Auto) 2.6 % (1.0-10.0) Eosinophils (%) (Auto) 4.6 % (0.0-3.0) Basophils (%) (Auto) 0.7 % (0.0-2.0) Sodium Level 147 MMOL/L (136-145) Potassium Level 3.3 MMOL/L (3.5-5.1) Chloride Level 110 MMOL/L (98-107) Carbon Dioxide Level 32 MMOL/L (21-32) Anion Gap 5 mmol/L (5-15) Blood Urea Nitrogen 33 mg/dL (7-18) Creatinine 0.9 MG/DL (0.55-1.30) Estimat Glomerular Filtration Rate > 60 mL/min (>60) Glucose Level 123 MG/DL (74-106) Calcium Level 8.7 MG/DL (8.5-10.1) POC Whole Blood Glucose 218 MG/DL (74-106) Test 06/16/20 17:14 06/17/20 05:18 06/17/20 06:03 06/17/20 12:20 White Blood Count 9.5 K/UL (4.8-10.8) Red Blood Count 3.10 M/UL (4.20-5.40) Hemoglobin 9.0 G/DL (12.0-16.0) Hematocrit 28.7 % (37.0-47.0) Mean Corpuscular Volume 93 FL (80-99) Mean Corpuscular Hemoglobin 29.0 PG (27.0-31.0) Mean Corpuscular Hemoglobin Concent 31.3 G/DL (32.0-36.0) Red Cell Distribution Width 15.1 % (11.6-14.8) Platelet Count 205 K/UL (150-450) Mean Platelet Volume 8.1 FL (6.5-10.1) Neutrophils (%) (Auto) 77.5 % (45.0-75.0) Lymphocytes (%) (Auto) 12.7 % (20.0-45.0) Monocytes (%) (Auto) 2.4 % (1.0-10.0) Eosinophils (%) (Auto) 6.7 % (0.0-3.0) Basophils (%) (Auto) 0.7 % (0.0-2.0) Sodium Level 147 MMOL/L (136-145) Potassium Level 3.9 MMOL/L (3.5-5.1) Chloride Level 109 MMOL/L (98-107) Carbon Dioxide Level 32 MMOL/L (21-32) Anion Gap 6 mmol/L (5-15) Blood Urea Nitrogen 29 mg/dL (7-18) Creatinine 0.7 MG/DL (0.55-1.30) Estimat Glomerular Filtration Rate > 60 mL/min (>60) Glucose Level 114 MG/DL (74-106) Calcium Level 8.9 MG/DL (8.5-10.1) Phosphorus Level 2.3 MG/DL (2.5-4.9) Magnesium Level 1.8 MG/DL (1.8-2.4) Total Bilirubin 0.7 MG/DL (0.2-1.0) Direct Bilirubin 0.3 MG/DL (0.0-0.3) Aspartate Amino Transf (AST/SGOT) 33 U/L (15-37) Alanine Aminotransferase (ALT/SGPT) 20 U/L (12-78) Alkaline Phosphatase 40 U/L (46-116) C-Reactive Protein, Quantitative 3.2 mg/dL (0.00-0.90) Pro-B-Type Natriuretic Peptide 768 pg/mL (0-125) Total Protein 5.5 G/DL (6.4-8.2) Albumin 2.1 G/DL (3.4-5.0) POC Whole Blood Glucose 149 MG/DL (74-106) Test 06/17/20 17:02 06/17/20 23:33 06/18/20 03:07 06/18/20 04:00 POC Whole Blood Glucose 136 MG/DL (74-106) 97 MG/DL (74-106) White Blood Count 10.5 K/UL (4.8-10.8) Red Blood Count 2.95 M/UL (4.20-5.40) Hemoglobin 8.6 G/DL (12.0-16.0) Hematocrit 27.1 % (37.0-47.0) Mean Corpuscular Volume 92 FL (80-99) Mean Corpuscular Hemoglobin 29.2 PG (27.0-31.0) Mean Corpuscular Hemoglobin Concent 31.9 G/DL (32.0-36.0) Red Cell Distribution Width 15.6 % (11.6-14.8) Platelet Count 231 K/UL (150-450) Mean Platelet Volume 8.7 FL (6.5-10.1) Neutrophils (%) (Auto) 73.5 % (45.0-75.0) Lymphocytes (%) (Auto) 16.7 % (20.0-45.0) Monocytes (%) (Auto) 1.4 % (1.0-10.0) Eosinophils (%) (Auto) 8.1 % (0.0-3.0) Basophils (%) (Auto) 0.3 % (0.0-2.0) Sodium Level 142 MMOL/L (136-145) Potassium Level 3.9 MMOL/L (3.5-5.1) Chloride Level 107 MMOL/L (98-107) Carbon Dioxide Level 32 MMOL/L (21-32) Anion Gap 3 mmol/L (5-15) Blood Urea Nitrogen 25 mg/dL (7-18) Creatinine 0.7 MG/DL (0.55-1.30) Estimat Glomerular Filtration Rate > 60 mL/min (>60) Glucose Level 96 MG/DL (74-106) Calcium Level 8.6 MG/DL (8.5-10.1) Height (Feet): 5 Height (Inches): 5.00 Weight (Pounds): 308 Objective GeNL: nv Pulm: vent++ CV: rrr Abd: soft, nt, nd Ext: no cce Myron Condon MD Jun 18, 2020 06:44
--- NOTE | 2020-06-18 07:30 | NUR ---
NURSE HAND-OFF REPORT: Latest Vital Signs: Temperature 99.6 , Pulse 112 , B/P 138 /65 , Respiratory Rate 18 , O2 SAT 100 , Mechanical Ventilator, O2 Flow Rate . Vital Sign Comment: STABLE EKG Rhythm: Sinus Rhythm Rhythm change?: N MD Notified?: - MD Response: Latest Meyers Fall Score: 70 Fall Risk: High Risk Safety Measures: Call light Within Reach, Bed Alarm Zone 1, Side Rails Side Rails x2, Bed position Low and Locked. Fall Precautions: Yellow Socks Report given to RAKEL Adams.
--- NOTE | 2020-06-18 07:40 | NUR ---
NURSE NOTES: LATE ENTRY: RECEIVED REPORT FROM DREW. PT IN BED. DROWSY. VS. DRIPS OFF FOR WEANING. OPENS EYES. BILATERAL SOFT WRIST RESTRAINTS INTACT. PUPILS 3MM SLUGGISH. LUNGS BILATERAL DIMINISHED. SECRETIONS THICK, WHITE. ET TUBE 7, 23CM AT LIP. VENT SETTINGS AC 15, VT 600, PEEP5, FI02 55%. ORAL CARE AND SUCTION PROVIDED. RECTAL TEMP 98.8. COOLING BLANKET ON MONITOR. ABDOMEN ROUND. BOWEL SOUNDS HYPERACTIVE. NO BM AT THIS TIME. GARCIA DRAINING LIGHT ANNA. LINDA PICC. NS AT 50ML/HR. SIDE RAILS X 3, BED ALARM ON. [place] PRECAUTIONS IN PLACE. WILL CONTINUE TO MONITOR PT.
--- NOTE | 2020-06-18 08:04 | NUR ---
RD ASSESSMENT & RECOMMENDATIONS SEE CARE ACTIVITY FOR COMPLETE ASSESSMENT DAILY ESTIMATED NEEDS: Needs based on Critical care, obesity 11-14kcal/kg actual body wt (140kg) kcals/kg 8186-1938 total kcals 1.5-2.0g prot/kg IBW (64.5kg) g protein/kg 96-129 g total protein 25-30ml/kg abw (83kg) mL/kg 9108-1229 total fluid mLs NUTRITION DIAGNOSIS: Swallowing difficulty R/T respiratory failure as evidenced by pt orally intubated and sedated, on OGT feeds. CURRENT TF: Vital 1.2 goal of 60ml/hr ENTERAL NUTRITION RECOMMENDATIONS: Vital AF 1.2 @ 60ml/hr x 24 hrs to provide 1440ml, 1728kcal, 108g prot, 1168ml free water * Maintain current critical care and carb controlled TF formula of Vital AF * TF @ goal meeds 100% est kcal/prot needs * HOB over 30 degrees/ water flush per MD TF may be lowered to 55ml/hr for improved BG control while maintaining Kcal and pro needs. ADDITIONAL RECOMMENDATIONS: * Calibrated bedscale wt * Monitor Propofol rate, need for TF adjustment-> now off * Monitor BGs closely : now improved, on novolog q 6rs + NISS * Monitor lytes * Rec bowel regimen, bm noted 06/17 . .
--- NOTE | 2020-06-18 08:06 | NUR ---
NURSE NOTES: PT DESATING 46%. PT FOUND WITH SECRETIONS. SUCTION AND ORAL CARE PROVIDED. CHANGED PULSE OX. PT INFORMED OF WEANING TODAY. OFF SEDATION. EDUCATED ON REMAINING CALM. PEEP HAS BEEN INCREASED TO 6. LATER SPOKE WITH R.T TO SEE IF WEANING POSSIBLE. WILL SEE HOW PT TOLERATES DECREASE IN FI02%.
--- NOTE | 2020-06-18 08:39 | NUR ---
CASE MANAGEMENT:REVIEW NOTE @ 0806 THIS AM PATIENT DESATURATED TO 46% SUCTIONED AND FIO2 INCREASED TO 100% 06/18/20 SI: COVID PNA ACUTE RESPIRATORY FAILURE~ INTUBATED 99.6 112 18 138/65 100% ON VENT SUPPORT W/100% FIO2 H/H-8.6/27.1 BUN+25 IS: FENTANYL GTT VERSED GTT IV SOLUMEDROL 10MG QD IV ZOSYN Q8HRS IVF@50/HR IV PROTONIX Q12 MIDODRINE NG Q8HRS LOVENOX SQ QD : ICU STATUS DCP: FROM HOME PLAN: TITRATE OXYGEN
[2020-06-18] MEDS: Enoxaparin 40mg Inj SUBQ SCH (09:00)
[2020-06-18] MEDS: Docusate 100mg/10ml Liq GT SCH ×3 (09:00→21:00)
--- NOTE | 2020-06-18 09:00 | NUR ---
NURSE NOTES: LATE ENTRY: MD. SON HERE TO SEE PT. WAS INFORMED NO CHANGE TO LAS. K, BUN/CRE WNL. WILL ATTEMPT WEANING TODAY, SEDATION VACATION.
[2020-06-18] MEDS: Solu-MEDROL 40mg Inj IVP SCH (09:24)
[2020-06-18] MEDS: Pantoprazole Inj IVP SCH ×2 (09:24→21:03)
[2020-06-18] MEDS: MIDAZOLAM HCL IV PRN ×2 (09:26→21:07)
[2020-06-18] MEDS: D5W IV PRN ×2 (09:26→21:07)
--- NOTE | 2020-06-18 09:42 | Nephrology Progress Note ---
Assessment/Plan Problem List: (1) DEVENDRA (acute kidney injury) (2) Morbid obesity (3) Diabetes mellitus out of control (4) Pneumonia due to COVID-19 virus (5) Respiratory failure Assessment Acute renal failure Obstructive uropathy, clogged Lennon Respiratory failure COVID-19 pneumonia Morbid obesity Plan June 18: Labs reviewed. Remains intubated on ventilator. Full code. Abnormal electrolyte addressed. Continue as is. June 17: Labs reviewed. Abnormal electrolytes addressed. Patient remains full code and intubated on ventilator. Continue per consultants. Renal parameters are within normal limits. June 16: Labs reviewed. Potassium chloride replaced. Remains full code. Remains intubated on ventilator. Continue per consultants. Continue to monitor renal parameters. June 15: Labs reviewed. Serum creatinine 1. Stable from renal standpoint to view. Continue per consultants. June 14: Labs reviewed. Full code. Serum creatinine of 3.5 down to 1.4. Low potassium addressed. Continue per current treatment plan. Continue to monitor renal parameters. Midodrine started. Albumin bolus given. Previously: DC Lasix drip Increase Protonix dose Monitor renal parameters, electrolytes Per orders Subjective ROS Limited/Unobtainable: Yes Objective Objective Last 24 Hour Vital Signs Date Time Temp Pulse Resp B/P (MAP) Pulse Ox O2 Delivery O2 Flow Rate FiO2 06/18/20 09:26 23 Mechanical Ventilator 06/18/20 09:00 114 32 140/76 (97) 89 06/18/20 08:30 119 30 139/80 (99) 90 06/18/20 08:22 80 06/18/20 08:00 100 06/18/20 08:00 98.8 109 28 123/100 (108) 97 06/18/20 08:00 Mechanical Ventilator Mechanical Ventilator 06/18/20 07:00 112 18 138/65 (89) 100 06/18/20 06:45 100 28 100 06/18/20 06:30 95 27 06/18/20 06:00 115 23 136/74 (94) 96 06/18/20 05:00 96 21 118/62 (80) 95 06/18/20 04:15 20 Mechanical Ventilator 06/18/20 04:00 86 06/18/20 04:00 99.6 105 22 100/54 (69) 97 06/18/20 04:00 Mechanical Ventilator Mechanical Ventilator 06/18/20 04:00 55 1/26/21 03:34 96 21 55 06/18/20 03:15 20 Mechanical Ventilator 06/18/20 03:15 28 140/79 Mechanical Ventilator 50 06/18/20 03:00 103 25 99/56 (70) 94 06/18/20 02:15 21 Mechanical Ventilator 06/18/20 02:15 26 133/76 Mechanical Ventilator 50 06/18/20 02:00 91 18 98/59 (72) 95 06/18/20 01:15 19 Mechanical Ventilator 06/18/20 01:15 21 112/57 Mechanical Ventilator 06/18/20 01:03 20 112/57 Mechanical Ventilator 55 06/18/20 01:00 88 21 112/57 (75) 97 06/18/20 00:15 19 Mechanical Ventilator 55 06/18/20 00:15 20 105/70 Mechanical Ventilator 06/18/20 00:00 84 06/18/20 00:00 55 06/18/20 00:00 Mechanical Ventilator Mechanical Ventilator 06/18/20 00:00 98.7 84 20 116/57 (76) 96 06/17/20 23:25 22 Mechanical Ventilator 55 06/17/20 23:15 82 20 50 06/17/20 23:15 20 Mechanical Ventilator 55 06/17/20 23:15 20 103/57 Mechanical Ventilator 55 06/17/20 23:00 86 20 109/55 (73) 93 06/17/20 22:15 19 Endotracheal Tube 06/17/20 22:15 21 105/62 Endotracheal Tube 06/17/20 22:00 82 21 105/62 (76) 96 06/17/20 21:15 20 06/17/20 21:15 18 95/53 Endotracheal Tube 06/17/20 21:00 75 18 95/53 (67) 98 06/17/20 20:15 29 Endotracheal Tube 06/17/20 20:15 19 94/54 Endotracheal Tube 06/17/20 20:00 96.8 72 19 94/54 (67) 100 06/17/20 20:00 55 06/17/20 20:00 72 06/17/20 20:00 Mechanical Ventilator Mechanical Ventilator 06/17/20 19:17 70 19 50 06/17/20 19:15 30 Endotracheal Tube 06/17/20 19:15 19 93/58 Endotracheal Tube 06/17/20 19:00 68 17 93/58 (70) 100 06/17/20 18:00 70 19 99/63 (75) 100 06/17/20 17:45 67 16 105/67 (80) 99 06/17/20 17:30 69 18 101/67 (78) 99 06/17/20 17:15 73 16 114/68 (83) 95 06/17/20 17:15 Mechanical Ventilator 06/17/20 17:15 17 114/68 Mechanical Ventilator 06/17/20 17:00 76 17 113/73 (86) 94 06/17/20 16:45 84 31 113/63 (80) 93 06/17/20 16:30 69 5 103/60 (74) 100 06/17/20 16:15 Mechanical Ventilator 06/17/20 16:15 2 95/55 06/17/20 16:15 69 1 95/55 (68) 100 06/17/20 16:00 72 06/17/20 16:00 55 06/17/20 16:00 97.2 72 0 94/58 (70) 100 06/17/20 16:00 Mechanical Ventilator Mechanical Ventilator 06/17/20 15:45 69 0 100/58 (72) 100 06/17/20 15:39 82 20 50 06/17/20 15:30 67 15 107/62 (77) 100 06/17/20 15:15 73 0 109/61 (77) 100 06/17/20 15:15 Mechanical Ventilator 06/17/20 15:15 0 102/60 Mechanical Ventilator 06/17/20 15:00 71 2 101/64 (76) 100 06/17/20 14:30 71 0 100/60 (73) 100 06/17/20 14:15 Mechanical Ventilator 06/17/20 14:15 71 0 102/60 (74) 100 06/17/20 14:00 79 16 98/60 (73) 100 06/17/20 13:30 73 16 93/58 (70) 100 06/17/20 13:15 Mechanical Ventilator 06/17/20 13:15 17 102/61 Mechanical Ventilator 06/17/20 13:15 72 17 102/61 (75) 100 06/17/20 13:00 76 17 106/63 (77) 100 06/17/20 12:45 74 17 107/62 (77) 100 06/17/20 12:30 78 16 113/64 (80) 98 06/17/20 12:15 Mechanical Ventilator 06/17/20 12:15 76 15 100/58 (72) 99 06/17/20 12:00 75 06/17/20 12:00 Mechanical Ventilator Mechanical Ventilator 06/17/20 12:00 98.3 71 15 115/68 (84) 97 06/17/20 12:00 55 06/17/20 11:39 89 22 50 06/17/20 11:12 18 118/69 06/17/20 11:00 73 16 107/66 (80) 100 06/17/20 10:45 75 19 110/62 (78) 100 06/17/20 10:30 75 18 115/65 (82) 99 06/17/20 10:15 18 112/63 Mechanical Ventilator 06/17/20 10:15 76 16 112/63 (79) 98 06/17/20 10:00 79 19 109/59 (76) 100 06/17/20 09:45 98 18 122/66 (84) 90 Intake and Output 06/17/20 06/18/20 19:00 07:00 Intake Total 1665.5 ml 1638 ml Output Total 575 ml 610 ml Balance 1090.5 ml 1028 ml Free Water 50 ml IV Total 945.5 ml 818 ml Tube Feeding 720 ml 720 ml Other 50 ml Output Urine Total 575 ml 610 ml # Bowel Movements 2 Current Medications Medications (Trade) Dose Ordered Sig/Zelda Route PRN Reason Start Time Stop Time Status Last Admin Dose Admin Acetaminophen (Tylenol) 650 mg Q4H PRN NG Temp >100.5 05/31/20 21:45 06/30/20 21:44 06/15/20 22:30 Acetaminophen (Tylenol) 650 mg Q6H PRN NG Mild Pain (Pain Scale 1-3) 06/06/20 18:00 07/06/20 17:59 06/13/20 23:10 Chlorhexidine Gluconate (Inna-Hex 2%) 1 applic DAILY@1999 TOPIC 05/30/20 20:00 08/28/20 19:59 06/17/20 20:32 Dextrose (Dextrose 50%) 25 ml Q30M PRN IV Hypoglycemia 06/05/20 10:45 09/03/20 10:44 Dextrose (Dextrose 50%) 50 ml Q30M PRN IV Hypoglycemia 06/05/20 10:45 09/03/20 10:44 Docusate Sodium (Colace) 100 mg Q12HR GT 06/07/20 21:00 07/07/20 20:59 06/18/20 09:24 Enoxaparin Sodium (Lovenox) 40 mg DAILY SUBQ 05/30/20 10:00 08/28/20 09:59 06/17/20 08:52 Fentanyl Citrate 250 ml @ 1 mls/hr Q24H IV 06/18/20 08:00 06/20/20 07:59 Insulin Aspart (NovoLOG) EVERY 6 HOURS SUBQ 06/07/20 00:00 09/03/20 11:59 06/17/20 17:39 Insulin Aspart (NovoLOG) 18 units EVERY 6 HOURS SUBQ 06/18/20 12:00 09/04/20 08:59 Methylprednisolone Sodium Succinate (Solu-MEDROL) 10 mg DAILY IVP 06/18/20 09:00 09/16/20 08:59 06/18/20 09:24 Midazolam HCl 100 mg/Dextrose 200 ml @ 0 mls/hr Q24H PRN IV sedation 06/17/20 12:00 06/19/20 11:59 06/18/20 09:26 Midodrine (Pro-Amatine) 10 mg Q8HR ORAL 06/14/20 14:00 09/12/20 13:59 06/18/20 05:37 Pantoprazole (Protonix) 40 mg Q12HR IVP 06/13/20 21:00 07/03/20 08:59 06/18/20 09:24 Piperacillin Sod/ Tazobactam Sod 3.375 gm/Sodium Chloride 110 ml @ 27.5 mls/hr Q8HR IVPB 06/14/20 22:00 06/21/20 21:59 06/18/20 05:37 Polyethylene Glycol (Miralax) 17 gm BEDTIME GT 06/07/20 21:00 07/07/20 20:59 06/17/20 21:02 Sodium Chloride 1,000 ml @ 50 mls/hr Q20H IV 06/06/20 08:00 07/06/20 07:59 06/17/20 21:23 Laboratory Tests 06/17/20 12:20: POC Whole Blood Glucose [Pending] 06/17/20 17:02: POC Whole Blood Glucose [Pending] 06/17/20 23:33: POC Whole Blood Glucose 136H 06/18/20 03:07: POC Whole Blood Glucose 97 06/18/20 04:00: White Blood Count 10.5, Red Blood Count 2.95L, Hemoglobin 8.6L, Hematocrit 27.1L , Mean Corpuscular Volume 92, Mean Corpuscular Hemoglobin 29.2, Mean Corpuscular Hemoglobin Concent 31.9L, Red Cell Distribution Width 15.6H, Platelet Count 231, Mean Platelet Volume 8.7, Neutrophils (%) (Auto) 73.5, Lymphocytes (%) (Auto) 16.7L, Monocytes (%) (Auto) 1.4, Eosinophils (%) (Auto) 8.1H, Basophils (%) (Auto) 0.3, Sodium Level 142, Potassium Level 3.9, Chloride Level 107, Carbon Dioxide Level 32, Anion Gap 3L, Blood Urea Nitrogen 25H, Creatinine 0.7, Estimat Glomerular Filtration Rate > 60, Glucose Level 96, Calcium Level 8.6 Height (Feet): 5 Height (Inches): 5.00 Weight (Pounds): 308 General Appearance: no apparent distress EENT: other - Intubated on ventilator Cardiovascular: tachycardia Respiratory/Chest: decreased breath sounds Abdomen: distended Rigo Tyler MD Jun 18, 2020 09:42
--- NOTE | 2020-06-18 09:48 | Pulmonology Progress Note ---
Subjective ROS Limited/Unobtainable: Yes Interval Events: Remains intubated Constitutional: Reports: fever, other - T=103 HEENT: Repors: no symptoms Respiratory: Reports: no symptoms Cardiovascular: Reports: no symptoms Gastrointestinal/Abdominal: Reports: no symptoms Genitourinary: Reports: no symptoms Allergies: Coded Allergies: No Known Allergies (Unverified , 05/28/20) All Systems: reviewed and negative except above Objective Last 24 Hour Vital Signs Date Time Temp Pulse Resp B/P (MAP) Pulse Ox O2 Delivery O2 Flow Rate FiO2 06/18/20 09:26 23 Mechanical Ventilator 06/18/20 09:00 114 32 140/76 (97) 89 06/18/20 08:30 119 30 139/80 (99) 90 06/18/20 08:22 80 06/18/20 08:00 100 06/18/20 08:00 98.8 109 28 123/100 (108) 97 06/18/20 08:00 110 06/18/20 08:00 Mechanical Ventilator Mechanical Ventilator 06/18/20 07:00 112 18 138/65 (89) 100 06/18/20 06:45 100 28 100 06/18/20 06:30 95 27 06/18/20 06:00 115 23 136/74 (94) 96 06/18/20 05:00 96 21 118/62 (80) 95 06/18/20 04:15 20 Mechanical Ventilator 06/18/20 04:00 86 06/18/20 04:00 99.6 105 22 100/54 (69) 97 06/18/20 04:00 Mechanical Ventilator Mechanical Ventilator 06/18/20 04:00 55 06/18/20 03:34 96 21 55 06/18/20 03:15 20 Mechanical Ventilator 06/18/20 03:15 28 140/79 Mechanical Ventilator 50 06/18/20 03:00 103 25 99/56 (70) 94 06/18/20 02:15 21 Mechanical Ventilator 06/18/20 02:15 26 133/76 Mechanical Ventilator 50 06/18/20 02:00 91 18 98/59 (72) 95 06/18/20 01:15 19 Mechanical Ventilator 06/18/20 01:15 21 112/57 Mechanical Ventilator 06/18/20 01:03 20 112/57 Mechanical Ventilator 55 06/18/20 01:00 88 21 112/57 (75) 97 06/18/20 00:15 19 Mechanical Ventilator 55 06/18/20 00:15 20 105/70 Mechanical Ventilator 06/18/20 00:00 84 06/18/20 00:00 55 06/18/20 00:00 Mechanical Ventilator Mechanical Ventilator 06/18/20 00:00 98.7 84 20 116/57 (76) 96 06/17/20 23:25 22 Mechanical Ventilator 55 06/17/20 23:15 82 20 50 06/17/20 23:15 20 Mechanical Ventilator 55 06/17/20 23:15 20 103/57 Mechanical Ventilator 55 06/17/20 23:00 86 20 109/55 (73) 93 06/17/20 22:15 19 Endotracheal Tube 06/17/20 22:15 21 105/62 Endotracheal Tube 06/17/20 22:00 82 21 105/62 (76) 96 06/17/20 21:15 20 06/17/20 21:15 18 95/53 Endotracheal Tube 06/17/20 21:00 75 18 95/53 (67) 98 06/17/20 20:15 29 Endotracheal Tube 06/17/20 20:15 19 94/54 Endotracheal Tube 06/17/20 20:00 96.8 72 19 94/54 (67) 100 06/17/20 20:00 55 06/17/20 20:00 72 06/17/20 20:00 Mechanical Ventilator Mechanical Ventilator 06/17/20 19:17 70 19 50 06/17/20 19:15 30 Endotracheal Tube 06/17/20 19:15 19 93/58 Endotracheal Tube 06/17/20 19:00 68 17 93/58 (70) 100 06/17/20 18:00 70 19 99/63 (75) 100 06/17/20 17:45 67 16 105/67 (80) 99 06/17/20 17:30 69 18 101/67 (78) 99 06/17/20 17:15 73 16 114/68 (83) 95 06/17/20 17:15 Mechanical Ventilator 06/17/20 17:15 17 114/68 Mechanical Ventilator 06/17/20 17:00 76 17 113/73 (86) 94 06/17/20 16:45 84 31 113/63 (80) 93 06/17/20 16:30 69 5 103/60 (74) 100 06/17/20 16:15 Mechanical Ventilator 06/17/20 16:15 2 95/55 06/17/20 16:15 69 1 95/55 (68) 100 06/17/20 16:00 72 06/17/20 16:00 55 06/17/20 16:00 97.2 72 0 94/58 (70) 100 06/17/20 16:00 Mechanical Ventilator Mechanical Ventilator 06/17/20 15:45 69 0 100/58 (72) 100 06/17/20 15:39 82 20 50 06/17/20 15:30 67 15 107/62 (77) 100 06/17/20 15:15 73 0 109/61 (77) 100 06/17/20 15:15 Mechanical Ventilator 06/17/20 15:15 0 102/60 Mechanical Ventilator 06/17/20 15:00 71 2 101/64 (76) 100 06/17/20 14:30 71 0 100/60 (73) 100 06/17/20 14:15 Mechanical Ventilator 06/17/20 14:15 71 0 102/60 (74) 100 06/17/20 14:00 79 16 98/60 (73) 100 06/17/20 13:30 73 16 93/58 (70) 100 06/17/20 13:15 Mechanical Ventilator 06/17/20 13:15 17 102/61 Mechanical Ventilator 06/17/20 13:15 72 17 102/61 (75) 100 06/17/20 13:00 76 17 106/63 (77) 100 06/17/20 12:45 74 17 107/62 (77) 100 06/17/20 12:30 78 16 113/64 (80) 98 06/17/20 12:15 Mechanical Ventilator 06/17/20 12:15 76 15 100/58 (72) 99 06/17/20 12:00 75 06/17/20 12:00 Mechanical Ventilator Mechanical Ventilator 06/17/20 12:00 98.3 71 15 115/68 (84) 97 06/17/20 12:00 55 06/17/20 11:39 89 22 50 06/17/20 11:12 18 118/69 06/17/20 11:00 73 16 107/66 (80) 100 06/17/20 10:45 75 19 110/62 (78) 100 06/17/20 10:30 75 18 115/65 (82) 99 06/17/20 10:15 18 112/63 Mechanical Ventilator 06/17/20 10:15 76 16 112/63 (79) 98 06/17/20 10:00 79 19 109/59 (76) 100 Intake and Output 06/17/20 06/18/20 19:00 07:00 Intake Total 1665.5 ml 1638 ml Output Total 575 ml 610 ml Balance 1090.5 ml 1028 ml Free Water 50 ml IV Total 945.5 ml 818 ml Tube Feeding 720 ml 720 ml Other 50 ml Output Urine Total 575 ml 610 ml # Bowel Movements 2 General Appearance: no acute distress HEENT: normocephalic Respiratory: chest wall non-tender Cardiovascular: normal peripheral pulses Abdomen: normal bowel sounds Laboratory Tests 06/17/20 12:20: POC Whole Blood Glucose [Pending] 06/17/20 17:02: POC Whole Blood Glucose [Pending] 06/17/20 23:33: POC Whole Blood Glucose 136H 06/18/20 03:07: POC Whole Blood Glucose 97 06/18/20 04:00: White Blood Count 10.5, Red Blood Count 2.95L, Hemoglobin 8.6L, Hematocrit 27.1L , Mean Corpuscular Volume 92, Mean Corpuscular Hemoglobin 29.2, Mean Corpuscular Hemoglobin Concent 31.9L, Red Cell Distribution Width 15.6H, Platelet Count 231, Mean Platelet Volume 8.7, Neutrophils (%) (Auto) 73.5, Lymphocytes (%) (Auto) 16.7L, Monocytes (%) (Auto) 1.4, Eosinophils (%) (Auto) 8.1H, Basophils (%) (Auto) 0.3, Sodium Level 142, Potassium Level 3.9, Chloride Level 107, Carbon Dioxide Level 32, Anion Gap 3L, Blood Urea Nitrogen 25H, Creatinine 0.7, Estimat Glomerular Filtration Rate > 60, Glucose Level 96, Calcium Level 8.6 Current Medications Medications (Trade) Dose Ordered Sig/Zelda Route PRN Reason Start Time Stop Time Status Last Admin Dose Admin Acetaminophen (Tylenol) 650 mg Q4H PRN NG Temp >100.5 05/31/20 21:45 06/30/20 21:44 06/15/20 22:30 Acetaminophen (Tylenol) 650 mg Q6H PRN NG Mild Pain (Pain Scale 1-3) 06/06/20 18:00 07/06/20 17:59 06/13/20 23:10 Chlorhexidine Gluconate (Inna-Hex 2%) 1 applic DAILY@2000 TOPIC 05/30/20 20:00 08/28/20 19:59 06/17/20 20:32 Dextrose (Dextrose 50%) 25 ml Q30M PRN IV Hypoglycemia 06/05/20 10:45 09/03/20 10:44 Dextrose (Dextrose 50%) 50 ml Q30M PRN IV Hypoglycemia 06/05/20 10:45 09/03/20 10:44 Docusate Sodium (Colace) 100 mg Q12HR GT 06/07/20 21:00 07/07/20 20:59 06/18/20 09:24 Enoxaparin Sodium (Lovenox) 40 mg DAILY SUBQ 05/30/20 10:00 08/28/20 09:59 06/17/20 08:52 Fentanyl Citrate 250 ml @ 1 mls/hr Q24H IV 06/18/20 08:00 06/20/20 07:59 Insulin Aspart (NovoLOG) EVERY 6 HOURS SUBQ 06/07/20 00:00 09/03/20 11:59 06/17/20 17:39 Insulin Aspart (NovoLOG) 18 units EVERY 6 HOURS SUBQ 06/18/20 12:00 09/04/20 08:59 Methylprednisolone Sodium Succinate (Solu-MEDROL) 10 mg DAILY IVP 06/18/20 09:00 09/16/20 08:59 06/18/20 09:24 Midazolam HCl 100 mg/Dextrose 200 ml @ 0 mls/hr Q24H PRN IV sedation 06/17/20 12:00 06/19/20 11:59 06/18/20 09:26 Midodrine (Pro-Amatine) 10 mg Q8HR ORAL 06/14/20 14:00 09/12/20 13:59 06/18/20 05:37 Pantoprazole (Protonix) 40 mg Q12HR IVP 06/13/20 21:00 07/03/20 08:59 06/18/20 09:24 Piperacillin Sod/ Tazobactam Sod 3.375 gm/Sodium Chloride 110 ml @ 27.5 mls/hr Q8HR IVPB 06/14/20 22:00 06/21/20 21:59 06/18/20 05:37 Polyethylene Glycol (Miralax) 17 gm BEDTIME GT 06/07/20 21:00 07/07/20 20:59 06/17/20 21:02 Potassium Phosphate 20 mm/ Sodium Chloride 281.6667 ml @ 46.944 m... ONCE ONCE IV 06/18/20 11:00 06/18/20 16:59 Sodium Chloride 1,000 ml @ 50 mls/hr Q20H IV 06/06/20 08:00 07/06/20 07:59 06/17/20 21:23 Assessment/Plan Assessment/Plan 1. COVID-19 pneumonia -Intubated 05/28/20 - We will continue broad-spectrum antibiotics. - On solumedrol -On Rocephin -Continue monitoring SaO2 and keep it >92% -Continue PEEP 10->8; - Peak airway pressures high; approx 48 now - FiO2 100% -> 90 ->80->60 ->40 ->80%; -will continue OGT feeding -Continue sedation -Need to keep patient completely sedated. 2. Hyponatremia -Per primary MD 3. Elevated inflammatory markers - has high D dimer; Lovenox on hold due to hematuria 4. Decrease PEEP Continue weaning efforts Javier Nava MD Jun 18, 2020 09:48
[2020-06-18] MEDS ORDERED: Tubing IV Secondary IV ONE (10:09)
[2020-06-18] MEDS ORDERED: NS 275ml ONE (10:09)
[2020-06-18] MEDS ORDERED: Sterile Water Irrig 1000ml IRRIG ONE (10:09)
[2020-06-18] MEDS ORDERED: Potassium Phosphate 20 MM in NS 275 ML IV ONE (11:00)
--- NOTE | 2020-06-18 11:15 | Surgery Progress Note ---
Surgery Progress Note Subjective Additional Comments ill appearing labs noted exam unchanged on support Objective Last 24 Hour Vital Signs Date Time Temp Pulse Resp B/P (MAP) Pulse Ox O2 Delivery O2 Flow Rate FiO2 06/18/20 11:00 128 33 127/90 (102) 90 06/18/20 10:53 127 35 132/81 (98) 87 06/18/20 10:00 108 28 134/75 (94) 97 06/18/20 09:26 23 Mechanical Ventilator 06/18/20 09:00 114 32 140/76 (97) 89 06/18/20 08:30 119 30 139/80 (99) 90 06/18/20 08:22 80 06/18/20 08:00 100 06/18/20 08:00 98.8 109 28 123/100 (108) 97 06/18/20 08:00 110 06/18/20 08:00 Mechanical Ventilator Mechanical Ventilator 06/18/20 07:00 112 18 138/65 (89) 100 06/18/20 06:45 100 28 100 06/18/20 06:30 95 27 06/18/20 06:00 115 23 136/74 (94) 96 06/18/20 05:00 96 21 118/62 (80) 95 06/18/20 04:15 20 Mechanical Ventilator 06/18/20 04:00 86 06/18/20 04:00 99.6 105 22 100/54 (69) 97 06/18/20 04:00 Mechanical Ventilator Mechanical Ventilator 06/18/20 04:00 55 06/18/20 03:34 96 21 55 06/18/20 03:15 20 Mechanical Ventilator 06/18/20 03:15 28 140/79 Mechanical Ventilator 50 06/18/20 03:00 103 25 99/56 (70) 94 06/18/20 02:15 21 Mechanical Ventilator 06/18/20 02:15 26 133/76 Mechanical Ventilator 50 06/18/20 02:00 91 18 98/59 (72) 95 06/18/20 01:15 19 Mechanical Ventilator 06/18/20 01:15 21 112/57 Mechanical Ventilator 06/18/20 01:03 20 112/57 Mechanical Ventilator 55 06/18/20 01:00 88 21 112/57 (75) 97 06/18/20 00:15 19 Mechanical Ventilator 55 06/18/20 00:15 20 105/70 Mechanical Ventilator 06/18/20 00:00 84 06/18/20 00:00 55 06/18/20 00:00 Mechanical Ventilator Mechanical Ventilator 06/18/20 00:00 98.7 84 20 116/57 (76) 96 06/17/20 23:25 22 Mechanical Ventilator 55 06/17/20 23:15 82 20 50 06/17/20 23:15 20 Mechanical Ventilator 55 06/17/20 23:15 20 103/57 Mechanical Ventilator 55 06/17/20 23:00 86 20 109/55 (73) 93 06/17/20 22:15 19 Endotracheal Tube 06/17/20 22:15 21 105/62 Endotracheal Tube 06/17/20 22:00 82 21 105/62 (76) 96 06/17/20 21:15 20 06/17/20 21:15 18 95/53 Endotracheal Tube 06/17/20 21:00 75 18 95/53 (67) 98 06/17/20 20:15 29 Endotracheal Tube 06/17/20 20:15 19 94/54 Endotracheal Tube 06/17/20 20:00 96.8 72 19 94/54 (67) 100 06/17/20 20:00 55 06/17/20 20:00 72 06/17/20 20:00 Mechanical Ventilator Mechanical Ventilator 06/17/20 19:17 70 19 50 06/17/20 19:15 30 Endotracheal Tube 06/17/20 19:15 19 93/58 Endotracheal Tube 06/17/20 19:00 68 17 93/58 (70) 100 06/17/20 18:00 70 19 99/63 (75) 100 06/17/20 17:45 67 16 105/67 (80) 99 06/17/20 17:30 69 18 101/67 (78) 99 06/17/20 17:15 73 16 114/68 (83) 95 06/17/20 17:15 Mechanical Ventilator 06/17/20 17:15 17 114/68 Mechanical Ventilator 06/17/20 17:00 76 17 113/73 (86) 94 06/17/20 16:45 84 31 113/63 (80) 93 06/17/20 16:30 69 5 103/60 (74) 100 06/17/20 16:15 Mechanical Ventilator 06/17/20 16:15 2 95/55 06/17/20 16:15 69 1 95/55 (68) 100 06/17/20 16:00 72 06/17/20 16:00 55 06/17/20 16:00 97.2 72 0 94/58 (70) 100 06/17/20 16:00 Mechanical Ventilator Mechanical Ventilator 06/17/20 15:45 69 0 100/58 (72) 100 06/17/20 15:39 82 20 50 06/17/20 15:30 67 15 107/62 (77) 100 06/17/20 15:15 73 0 109/61 (77) 100 06/17/20 15:15 Mechanical Ventilator 06/17/20 15:15 0 102/60 Mechanical Ventilator 06/17/20 15:00 71 2 101/64 (76) 100 06/17/20 14:30 71 0 100/60 (73) 100 06/17/20 14:15 Mechanical Ventilator 06/17/20 14:15 71 0 102/60 (74) 100 06/17/20 14:00 79 16 98/60 (73) 100 06/17/20 13:30 73 16 93/58 (70) 100 06/17/20 13:15 Mechanical Ventilator 06/17/20 13:15 17 102/61 Mechanical Ventilator 06/17/20 13:15 72 17 102/61 (75) 100 06/17/20 13:00 76 17 106/63 (77) 100 06/17/20 12:45 74 17 107/62 (77) 100 06/17/20 12:30 78 16 113/64 (80) 98 06/17/20 12:15 Mechanical Ventilator 06/17/20 12:15 76 15 100/58 (72) 99 06/17/20 12:00 75 06/17/20 12:00 Mechanical Ventilator Mechanical Ventilator 06/17/20 12:00 98.3 71 15 115/68 (84) 97 06/17/20 12:00 55 06/17/20 11:39 89 22 50 I&O Intake and Output 06/17/20 06/18/20 19:00 07:00 Intake Total 1665.5 ml 1638 ml Output Total 575 ml 610 ml Balance 1090.5 ml 1028 ml Free Water 50 ml IV Total 945.5 ml 818 ml Tube Feeding 720 ml 720 ml Other 50 ml Output Urine Total 575 ml 610 ml # Bowel Movements 2 Dressing: saturated Cardiovascular: RSR Respiratory: decreased breath sounds Abdomen: soft, non-tender, present bowel sounds Extremities: no tenderness, no cyanosis Laboratory Tests Test 06/17/20 12:20 06/17/20 17:02 06/17/20 23:33 06/18/20 03:07 POC Whole Blood Glucose Pending Pending 136 MG/DL (74-106) H 97 MG/DL (74-106) Test 06/18/20 04:00 White Blood Count 10.5 K/UL (4.8-10.8) Red Blood Count 2.95 M/UL (4.20-5.40) L Hemoglobin 8.6 G/DL (12.0-16.0) L Hematocrit 27.1 % (37.0-47.0) L Mean Corpuscular Volume 92 FL (80-99) Mean Corpuscular Hemoglobin 29.2 PG (27.0-31.0) Mean Corpuscular Hemoglobin Concent 31.9 G/DL (32.0-36.0) L Red Cell Distribution Width 15.6 % (11.6-14.8) H Platelet Count 231 K/UL (150-450) Mean Platelet Volume 8.7 FL (6.5-10.1) Neutrophils (%) (Auto) 73.5 % (45.0-75.0) Lymphocytes (%) (Auto) 16.7 % (20.0-45.0) L Monocytes (%) (Auto) 1.4 % (1.0-10.0) Eosinophils (%) (Auto) 8.1 % (0.0-3.0) H Basophils (%) (Auto) 0.3 % (0.0-2.0) Sodium Level 142 MMOL/L (136-145) Potassium Level 3.9 MMOL/L (3.5-5.1) Chloride Level 107 MMOL/L (98-107) Carbon Dioxide Level 32 MMOL/L (21-32) Anion Gap 3 mmol/L (5-15) L Blood Urea Nitrogen 25 mg/dL (7-18) H Creatinine 0.7 MG/DL (0.55-1.30) Estimat Glomerular Filtration Rate > 60 mL/min (>60) Glucose Level 96 MG/DL (74-106) Calcium Level 8.6 MG/DL (8.5-10.1) Plan Problems: (1) Respiratory distress (2) Respiratory failure Assessment & Plan: 50-year-old female Covid positive respiratory insufficiency intubated on ventilatory support declining. Leukocytosis increase oxygen requirement. Vent settings per pulmonology reviewed identified and agree. Unfortunately further surgical invention at this time is not appropriate as patient is not a candidate and her current condition. Prognosis overall guarded. Tracheostomy can be considered in the future if recovering or shows improvement and requires unable to be weaned from ventilator support. Currently okay for nutritional optimization with NG tube. Will need significant monitoring for decubitus formation given patient's size and condition. Okay for air mattress tolerated. Turn every 2 hours as tolerated. Patient is otherwise critically ill and blood pressure labile. Will need to monitor closely.Bilateral infiltrates are again demonstrated. Stable tube and line po sitions. (3) Hypoxia (4) Pneumonia due to COVID-19 virus Assessment & Plan: ++ as per pulm and ID (5) Diabetes mellitus out of control Assessment & Plan: DAILY ESTIMATED NEEDS: Needs based on Critical care, obesity 11-14kcal/kg actual body wt (140kg) kcals/kg 0968-1516 total kcals 1.5-2.0g prot/kg IBW (64.5kg) g protein/kg 96-129 g total protein 25-30ml/kg abw (83kg) mL/kg 0089-5427 total fluid mLs NUTRITION DIAGNOSIS: Swallowing difficulty R/T respiratory failure as evidenced by pt orally intubated and sedated, on OGT feeds. CURRENT TF: Vital 1.2 goal of 60ml/hr ENTERAL NUTRITION RECOMMENDATIONS: Vital AF 1.2 @ 60ml/hr x 24 hrs to provide 1440ml, 1728kcal, 108g prot, 1168ml free water * Maintain current critical care and carb controlled TF formula of Vital AF * TF @ goal meeds 100% est kcal/prot needs * HOB over 30 degrees/ water flush per TF may be lowered to 55ml/hr for improved BG control while maintaining Kcal and pro needs. ADDITIONAL RECOMMENDATIONS: * Calibrated bedscale wt * Monitor Propofol rate, need for TF adjustment-> now off * Monitor BGs closely : now improved, on novolog q 6rs + NISS * Monitor lytes * Rec bowel regimen- now added Additional Comments of note, patient seen and examined on 06/17. unable to complete note because of log in issue Az Devine Jun 18, 2020 11:15
--- NOTE | 2020-06-18 11:50 | NUR ---
NURSE NOTES: MD. CHA HERE TO SEE PT. WAS INFORMED PT UNSTABLE TO WEAN. SEDATION DRIP OFF SINCE 399. RR 30'S, FI02 80%, SATING 80-90'S. FIO2 TITRATION ADJUSTED, PT SATS ALTERED. WAS PLACED BACK ON FI02 100% AT 11.
--- NOTE | 2020-06-18 12:41 | NUR ---
INSURANCE CLINICALS AND REVIEWS FAXED TO [facility] T: [phone] EXT [phone] F: [phone]
--- NOTE | 2020-06-18 12:50 | NUR ---
NURSE NOTES: LATE ENTRY: PT IN BED. DROWSY. VS. DRIPS ON, VERSED AT 10MG/HR. SEDATED RASS-2. RESPONSIVE TO STIMULI. BILATERAL SOFT WRIST RESTRAINTS INTACT. PUPILS 3MM SLUGGISH. LUNGS BILATERAL DIMINISHED. SECRETIONS THICK, WHITE. ET TUBE 7, 23CM AT LIP. VENT SETTINGS AC 15, VT 600, PEEP5, FI02 100%. ORAL CARE AND SUCTION PROVIDED. RECTAL TUBE IN PLACE. LOOSE BROWN STOOL. ABDOMEN ROUND. BOWEL SOUNDS HYPERACTIVE.GARCIA DRAINING LIGHT ANNA. LINDA PICC. NS AT 50ML/HR. SIDE RAILS X 3, BED ALARM ON. AIRBORNE PRECAUTIONS IN PLACE. WILL CONTINUE TO MONITOR PT.
--- NOTE | 2020-06-18 14:16 | General Progress Note ---
Subjective Constitutional: Reports: weakness Allergies: Coded Allergies: No Known Allergies (Unverified , 05/28/20) All Systems: reviewed and negative except above Subjective intubated sedated ng in icu Objective Last 24 Hour Vital Signs Date Time Temp Pulse Resp B/P (MAP) Pulse Ox O2 Delivery O2 Flow Rate FiO2 06/18/20 13:29 Mechanical Ventilator 06/18/20 13:00 99 21 115/76 (89) 100 06/18/20 12:45 99 22 125/73 (90) 99 06/18/20 12:30 99 24 124/71 (88) 100 06/18/20 12:29 Mechanical Ventilator 06/18/20 12:15 102 20 134/82 (99) 99 06/18/20 12:09 Mechanical Ventilator 06/18/20 12:00 Mechanical Ventilator Mechanical Ventilator 06/18/20 12:00 100 06/18/20 12:00 112 06/18/20 12:00 98.3 105 23 126/80 (95) 100 06/18/20 11:29 123 35 100 06/18/20 11:29 Mechanical Ventilator 06/18/20 11:00 128 33 127/90 (102) 90 06/18/20 11:00 100 06/18/20 10:53 127 35 132/81 (98) 87 06/18/20 10:29 Mechanical Ventilator 06/18/20 10:00 108 28 134/75 (94) 97 06/18/20 09:26 23 Mechanical Ventilator 06/18/20 09:00 114 32 140/76 (97) 89 06/18/20 08:30 119 30 139/80 (99) 90 06/18/20 08:22 80 06/18/20 08:19 80 06/18/20 08:00 100 06/18/20 08:00 98.8 109 28 123/100 (108) 97 06/18/20 08:00 110 06/18/20 08:00 Mechanical Ventilator Mechanical Ventilator 06/18/20 07:00 112 18 138/65 (89) 100 06/18/20 06:45 100 28 100 06/18/20 06:30 95 27 06/18/20 06:00 115 23 136/74 (94) 96 06/18/20 05:00 96 21 118/62 (80) 95 06/18/20 04:15 20 Mechanical Ventilator 06/18/20 04:00 86 06/18/20 04:00 99.6 105 22 100/54 (69) 97 06/18/20 04:00 Mechanical Ventilator Mechanical Ventilator 06/18/20 04:00 55 06/18/20 03:34 96 21 55 06/18/20 03:15 20 Mechanical Ventilator 06/18/20 03:15 28 140/79 Mechanical Ventilator 50 06/18/20 03:00 103 25 99/56 (70) 94 06/18/20 02:15 21 Mechanical Ventilator 06/18/20 02:15 26 133/76 Mechanical Ventilator 50 06/18/20 02:00 91 18 98/59 (72) 95 06/18/20 01:15 19 Mechanical Ventilator 06/18/20 01:15 21 112/57 Mechanical Ventilator 06/18/20 01:03 20 112/57 Mechanical Ventilator 55 06/18/20 01:00 88 21 112/57 (75) 97 06/18/20 00:15 19 Mechanical Ventilator 55 06/18/20 00:15 20 105/70 Mechanical Ventilator 06/18/20 00:00 84 06/18/20 00:00 55 06/18/20 00:00 Mechanical Ventilator Mechanical Ventilator 06/18/20 00:00 98.7 84 20 116/57 (76) 96 06/17/20 23:25 22 Mechanical Ventilator 55 06/17/20 23:15 82 20 50 06/17/20 23:15 20 Mechanical Ventilator 55 06/17/20 23:15 20 103/57 Mechanical Ventilator 55 06/17/20 23:00 86 20 109/55 (73) 93 06/17/20 22:15 19 Endotracheal Tube 06/17/20 22:15 21 105/62 Endotracheal Tube 06/17/20 22:00 82 21 105/62 (76) 96 06/17/20 21:15 20 06/17/20 21:15 18 95/53 Endotracheal Tube 06/17/20 21:00 75 18 95/53 (67) 98 06/17/20 20:15 29 Endotracheal Tube 06/17/20 20:15 19 94/54 Endotracheal Tube 06/17/20 20:00 96.8 72 19 94/54 (67) 100 06/17/20 20:00 55 06/17/20 20:00 72 1/25/21 20:00 Mechanical Ventilator Mechanical Ventilator 06/17/20 19:17 70 19 50 06/17/20 19:15 30 Endotracheal Tube 06/17/20 19:15 19 93/58 Endotracheal Tube 06/17/20 19:00 68 17 93/58 (70) 100 06/17/20 18:00 70 19 99/63 (75) 100 06/17/20 17:45 67 16 105/67 (80) 99 06/17/20 17:30 69 18 101/67 (78) 99 06/17/20 17:15 73 16 114/68 (83) 95 06/17/20 17:15 Mechanical Ventilator 06/17/20 17:15 17 114/68 Mechanical Ventilator 06/17/20 17:00 76 17 113/73 (86) 94 06/17/20 16:45 84 31 113/63 (80) 93 06/17/20 16:30 69 5 103/60 (74) 100 06/17/20 16:15 Mechanical Ventilator 06/17/20 16:15 2 95/55 06/17/20 16:15 69 1 95/55 (68) 100 06/17/20 16:00 72 06/17/20 16:00 55 06/17/20 16:00 97.2 72 0 94/58 (70) 100 06/17/20 16:00 Mechanical Ventilator Mechanical Ventilator 06/17/20 15:45 69 0 100/58 (72) 100 06/17/20 15:39 82 20 50 06/17/20 15:30 67 15 107/62 (77) 100 06/17/20 15:15 73 0 109/61 (77) 100 06/17/20 15:15 Mechanical Ventilator 06/17/20 15:15 0 102/60 Mechanical Ventilator 06/17/20 15:00 71 2 101/64 (76) 100 06/17/20 14:30 71 0 100/60 (73) 100 Intake and Output 06/17/20 06/18/20 19:00 07:00 Intake Total 1665.5 ml 1688 ml Output Total 575 ml 610 ml Balance 1090.5 ml 1078 ml Free Water 50 ml IV Total 945.5 ml 868 ml Tube Feeding 720 ml 720 ml Other 50 ml Output Urine Total 575 ml 610 ml # Bowel Movements 2 Laboratory Tests 06/17/20 17:02: POC Whole Blood Glucose [Pending] 06/17/20 23:33: POC Whole Blood Glucose 136H 06/18/20 03:07: POC Whole Blood Glucose 97 06/18/20 04:00: White Blood Count 10.5, Red Blood Count 2.95L, Hemoglobin 8.6L, Hematocrit 27.1L , Mean Corpuscular Volume 92, Mean Corpuscular Hemoglobin 29.2, Mean Corpuscular Hemoglobin Concent 31.9L, Red Cell Distribution Width 15.6H, Platelet Count 231, Mean Platelet Volume 8.7, Neutrophils (%) (Auto) 73.5, Lymphocytes (%) (Auto) 16.7L, Monocytes (%) (Auto) 1.4, Eosinophils (%) (Auto) 8.1H, Basophils (%) (Auto) 0.3, Sodium Level 142, Potassium Level 3.9, Chloride Level 107, Carbon Dioxide Level 32, Anion Gap 3L, Blood Urea Nitrogen 25H, Creatinine 0.7, Estimat Glomerular Filtration Rate > 60, Glucose Level 96, Calcium Level 8.6 Height (Feet): 5 Height (Inches): 5.00 Weight (Pounds): 308 General Appearance: lethargic EENT: normal ENT inspection Neck: normal alignment Cardiovascular: normal peripheral pulses, normal rate, regular rhythm Respiratory/Chest: chest wall non-tender, lungs clear, normal breath sounds Abdomen: normal bowel sounds, non tender, soft Extremities: normal inspection Edema: no edema noted Arm (L), no edema noted Arm (R), no edema noted Leg (L), no edema noted Leg (R), no edema noted Pedal (L), no edema noted Pedal (R), no edema noted Generalized Neurologic: motor weakness Skin: normal pigmentation, warm/dry Assessment/Plan Problem List: (1) Hypoxia ICD Codes: R09.02 - Hypoxemia SNOMED: 003278654 (2) Respiratory failure ICD Codes: J96.90 - Respiratory failure, unspecified, unspecified whether with hypoxia or hypercapnia SNOMED: 452213995 (3) Respiratory distress ICD Codes: R06.03 - Acute respiratory distress; J12.82 - Pneumonia due to coronavirus disease 2019 SNOMED: 323697440 (4) Pneumonia due to COVID-19 virus ICD Codes: U07.1 - COVID-19; J12.82 - Pneumonia due to coronavirus disease 2019 SNOMED: 455700789622809488 Status: unchanged Assessment/Plan: vent abx id pulm f/u cbc bmp am Tank Del Cid DO Jun 18, 2020 14:16
--- NOTE | 2020-06-18 16:16 | NUR ---
NURSE NOTES: LATE ENTRY: PT IN BED. DROWSY. VS. DRIPS ON, VERSED AT 10MG/HR. SEDATED RASS-2. RESPONSIVE TO STIMULI. BILATERAL SOFT WRIST RESTRAINTS INTACT. PUPILS 3MM SLUGGISH. LUNGS BILATERAL DIMINISHED. SECRETIONS THICK, WHITE. ET TUBE 7, 23CM AT LIP. VENT SETTINGS AC 15, VT 600, PEEP5, FI02 100%. ORAL CARE AND SUCTION PROVIDED. RECTAL TUBE IN PLACE. LOOSE BROWN STOOL. GARCIA DRAINING LIGHT ANNA. LINDA PICC. NS AT 50ML/HR. SIDE RAILS X 3, BED ALARM ON. AIRBORNE PRECAUTIONS IN PLACE. WILL CONTINUE TO MONITOR PT.
--- NOTE | 2020-06-18 19:18 | NUR ---
NURSE HAND-OFF REPORT: Latest Vital Signs: Temperature 98.8 , Pulse 85 , B/P 99 /65 , Respiratory Rate 23 , O2 SAT 99 , Mechanical Ventilator, O2 Flow Rate . Vital Sign Comment: EKG Rhythm: Sinus Rhythm Rhythm change?: N MD Notified?: - MD Response: Latest Meyers Fall Score: 70 Fall Risk: High Risk Safety Measures: Call light Within Reach, Bed Alarm Zone 1, Side Rails Side Rails x2, Bed position Low and Locked. Fall Precautions: Yellow Socks Report given to .DREW Dubon
--- NOTE | 2020-06-18 19:30 | NUR ---
NURSE NOTES: Received pt orally intubated on ac mode, sedated with Versed drip at 10mg/hr, for -RASS score 2, NS at 50ml/hr for maintainance, ALL iVF been infusing to picc line LINDA site, with drsg dry and intact, Bilateral soft wrist restraints maintained for safety to avoid self extubation. Tolerating fdg at this time, with acceptable residuals HOB kept elevated , on aspiration precaution. Rectal tube to gravity with scant amt of watery stools, SR on the monitor, Bp stable afebrile.Will continue to monitor.
[2020-06-18] MEDS: Dyna-Hex 2% Top Sol 2oz TOPIC SCH (19:56)
[2020-06-18] MEDS: Miralax 17gm pkt GT SCH (21:00)
--- NOTE | 2020-06-18 22:00 | NUR ---
NURSE NOTES: pt kept with versed 10mg/hr, to RASS score -2
[2020-06-19] VITALS (37 sets, daily range): BP systolic 96–148; BP diastolic 43–115
--- NOTE | 2020-06-19 | NUR ---
NURSE NOTES: Suctioned tn mott secretions moderate in amt. 02 sat >90%
--- NOTE | 2020-06-19 02:00 | NUR ---
NURSE NOTES: pts kept with Versed 10mg/hr at this time with RASS score -2
--- NOTE | 2020-06-19 04:00 | NUR ---
NURSE NOTES: Complete bed bath with bed changed was done.
[2020-06-19 05:21] LABS: BASOPHILS % (AUTO) 0.6 % (0.0-2.0); EOSINOPHILS % (AUTO) 5.5 % (0.0-3.0); HEMATOCRIT 25.7 % (37.0-47.0); HEMOGLOBIN 8.2 G/DL (12.0-16.0); LYMPHOCYTES % (AUTO) 12.9 % (20.0-45.0); MEAN CORPUSCULAR VOLUME 91 FL (80-99); MONOCYTES % (AUTO) 1.9 % (1.0-10.0); PLATELET COUNT 228 K/UL (150-450); RED BLOOD COUNT 2.82 M/UL (4.20-5.40); RED CELL DISTRIBUTION WIDTH 15.9 % (11.6-14.8); WHITE BLOOD COUNT 10.3 K/UL (4.8-10.8)
[2020-06-19 05:39] LABS: ALANINE AMINOTRANSFERASE 26 U/L (12-78); ALBUMIN 1.9 G/DL (3.4-5.0); ALBUMIN/GLOBULIN RATIO 0.5 (1.0-2.7); ALKALINE PHOSPHATASE 66 U/L (46-116); ANION GAP 4 mmol/L (5-15); ASPARTATE AMINO TRANSFERASE 42 U/L (15-37); BILIRUBIN,TOTAL 0.8 MG/DL (0.2-1.0); BLOOD UREA NITROGEN 21 mg/dL (7-18); CALCIUM 8.6 MG/DL (8.5-10.1); CARBON DIOXIDE 33 MMOL/L (21-32); CHLORIDE 105 MMOL/L (98-107); CREATININE 0.6 MG/DL (0.55-1.30); PHOSPHORUS 2.3 MG/DL (2.5-4.9); POTASSIUM 3.9 MMOL/L (3.5-5.1); SODIUM 142 MMOL/L (136-145)
[2020-06-19] MEDS: Midodrine 10mg tab ORAL SCH ×3 (06:02→21:39)
[2020-06-19] MEDS: Piperacillin/Tazobactam 3.375 GM in NS 110 ML IVPB SCH ×3 (06:02→21:38)
[2020-06-19] MEDS: NovoLOG Insulin Flexpen SUBQ SCH ×6 (06:05→17:17)
--- NOTE | 2020-06-19 06:23 | Hematology/Onc Progress Note ---
Assessment/Plan Assessment/Plan # Thrombocytopenia is due to infection/underlying covid19+++ --> ABX ceftriaxone -->zosyn --> on steriods likely cause of initial wbc --> per pulm --> plt 107->156-->192-->205 --> smear reviewed # Anemia due to chronic disease --> hgb goal is >7 --> transfuse prn --> ferritin is >1000 --> hold off on iron --> 10-->9.8->9-->8-->hgb 8.2 # Elevated ddimer due to covid19++ --> duplex legs is negative --> underlying covid rx # Hypoxia -> due to covid19 # Hypoxemia --> rx same as above # Respiratory failure --> on vent --> per pulm # Pneumonia due to COVID-19 virus --> per pulm rx -> sp remdesivir # Diabetes mellitus out of control --> hgb a1c goal <7 # Poor prognosis # Dvt ppx lovenox sq Appreciate consultation and bowen RN Subjective Allergies: Coded Allergies: No Known Allergies (Unverified , 05/28/20) All Systems: reviewed and negative except above Subjective 06/10 nv, on vent, with ogt, on fentanyl and versed, plt stable 06/11 nv, vent adjusted is on ogt, meds reviewed 06/12 nv, vent, meds noted, labs noted, no bleeding, hgb 10.4 06/13 nv, is on vent, meds reviewed, no bleeding, cbc reviewed 06/14 nv, on vent, tachy, labs reviewed, gross hematuria, febrile overnight, abx 06/17 nv, on vent, labs noted, no major changes, feeling better overnight 06/18 nv, meds reviewed, labs noted, no major events, hgb 8.6 06/19 nv, remains intubated, with fluids, labs reviewed, meds noted Objective Objective Current Medications Medications (Trade) Dose Ordered Sig/Zelda Route PRN Reason Start Time Stop Time Status Last Admin Dose Admin Acetaminophen (Tylenol) 650 mg Q4H PRN NG Temp >100.5 05/31/20 21:45 06/30/20 21:44 06/15/20 22:30 Acetaminophen (Tylenol) 650 mg Q6H PRN NG Mild Pain (Pain Scale 1-3) 06/06/20 18:00 07/06/20 17:59 06/13/20 23:10 Chlorhexidine Gluconate (Inna-Hex 2%) 1 applic DAILY@2000 TOPIC 05/30/20 20:00 08/28/20 19:59 06/18/20 19:56 Dextrose (Dextrose 50%) 25 ml Q30M PRN IV Hypoglycemia 06/05/20 10:45 09/03/20 10:44 Dextrose (Dextrose 50%) 50 ml Q30M PRN IV Hypoglycemia 06/05/20 10:45 09/03/20 10:44 Docusate Sodium (Colace) 100 mg Q12HR GT 06/07/20 21:00 07/07/20 20:59 06/17/20 21:02 Enoxaparin Sodium (Lovenox) 40 mg DAILY SUBQ 05/30/20 10:00 08/28/20 09:59 06/17/20 08:52 Fentanyl Citrate 250 ml @ 1 mls/hr Q24H IV 06/18/20 08:00 06/20/20 07:59 Insulin Aspart (NovoLOG) EVERY 6 HOURS SUBQ 06/07/20 00:00 09/03/20 11:59 06/19/20 06:05 Insulin Aspart (NovoLOG) 18 units EVERY 6 HOURS SUBQ 06/18/20 12:00 09/04/20 08:59 06/18/20 23:52 Methylprednisolone Sodium Succinate (Solu-MEDROL) 10 mg DAILY IVP 06/18/20 09:00 09/16/20 08:59 06/18/20 09:24 Midazolam HCl 100 mg/Dextrose 200 ml @ 0 mls/hr Q24H PRN IV sedation 06/17/20 12:00 06/19/20 11:59 06/18/20 21:07 Midodrine (Pro-Amatine) 10 mg Q8HR ORAL 06/14/20 14:00 09/12/20 13:59 06/19/20 06:02 Pantoprazole (Protonix) 40 mg Q12HR IVP 06/13/20 21:00 07/03/20 08:59 06/18/20 21:03 Piperacillin Sod/ Tazobactam Sod 3.375 gm/Sodium Chloride 110 ml @ 27.5 mls/hr Q8HR IVPB 06/14/20 22:00 06/21/20 21:59 06/19/20 06:02 Polyethylene Glycol (Miralax) 17 gm BEDTIME GT 06/07/20 21:00 07/07/20 20:59 06/17/20 21:02 Sodium Chloride 1,000 ml @ 50 mls/hr Q20H IV 06/06/20 08:00 07/06/20 07:59 06/18/20 17:30 Last 24 Hour Vital Signs Date Time Temp Pulse Resp B/P (MAP) Pulse Ox O2 Delivery O2 Flow Rate FiO2 06/19/20 04:00 25 Mechanical Ventilator 100 06/19/20 03:40 96 25 100 06/19/20 03:29 28 Mechanical Ventilator 100 06/19/20 02:30 108 32 124/62 (82) 95 06/19/20 02:29 28 Mechanical Ventilator 100 06/19/20 02:00 102 31 136/66 (89) 94 06/19/20 01:30 100 36 140/71 (94) 94 06/19/20 01:29 28 Mechanical Ventilator 100 06/19/20 01:00 89 23 133/67 (89) 97 06/19/20 00:30 99 28 120/43 (68) 88 06/19/20 00:29 28 Mechanical Ventilator 100 06/19/20 00:00 Mechanical Ventilator Mechanical Ventilator 06/19/20 00:00 100 06/19/20 00:00 94 06/19/20 00:00 99.2 85 27 117/63 (81) 96 06/18/20 23:40 84 25 100 06/18/20 23:40 97 34 100 06/18/20 23:30 83 23 115/69 (84) 98 06/18/20 23:29 25 Mechanical Ventilator 100 06/18/20 23:00 94 27 107/66 (80) 99 06/18/20 22:30 111 35 133/78 (96) 99 06/18/20 22:29 30 Mechanical Ventilator 100 06/18/20 22:00 96 31 106/76 (86) 98 06/18/20 21:30 95 32 106/62 (77) 99 06/18/20 21:29 30 Mechanical Ventilator 100 06/18/20 21:07 25 Mechanical Ventilator 100 06/18/20 21:00 97 28 102/63 (76) 99 06/18/20 20:30 89 29 107/68 (81) 99 06/18/20 20:29 31 Mechanical Ventilator 100 06/18/20 20:00 99.2 90 30 114/62 (79) 98 06/18/20 20:00 Mechanical Ventilator Mechanical Ventilator 06/18/20 20:00 95 06/18/20 20:00 100 06/18/20 19:30 89 24 105/60 (75) 99 06/18/20 19:29 26 Mechanical Ventilator 100 06/18/20 19:00 85 23 99/65 (76) 99 06/18/20 18:00 97 26 109/71 (84) 100 06/18/20 17:29 Mechanical Ventilator 06/18/20 17:15 95 23 96/51 (66) 99 06/18/20 17:02 96 23 88/52 (64) 99 06/18/20 17:00 94 22 89/55 (66) 99 06/18/20 16:29 Mechanical Ventilator 06/18/20 16:15 89 24 90/51 (64) 100 06/18/20 16:00 100 06/18/20 16:00 Mechanical Ventilator Mechanical Ventilator 06/18/20 16:00 98.8 90 25 91/50 (64) 100 06/18/20 16:00 96 06/18/20 15:48 95 25 100 06/18/20 15:29 Mechanical Ventilator 06/18/20 14:29 Mechanical Ventilator 06/18/20 14:00 94 21 96/73 (81) 100 06/18/20 13:29 Mechanical Ventilator 06/18/20 13:00 99 21 115/76 (89) 100 06/18/20 12:45 99 22 125/73 (90) 99 06/18/20 12:30 99 24 124/71 (88) 100 06/18/20 12:29 Mechanical Ventilator 06/18/20 12:15 102 20 134/82 (99) 99 06/18/20 12:09 Mechanical Ventilator 06/18/20 12:00 Mechanical Ventilator Mechanical Ventilator 06/18/20 12:00 100 06/18/20 12:00 112 06/18/20 12:00 98.3 105 23 126/80 (95) 100 1/26/21 11:29 123 35 100 06/18/20 11:29 Mechanical Ventilator 06/18/20 11:00 128 33 127/90 (102) 90 06/18/20 11:00 100 06/18/20 10:53 127 35 132/81 (98) 87 06/18/20 10:29 Mechanical Ventilator 06/18/20 10:00 108 28 134/75 (94) 97 06/18/20 09:26 23 Mechanical Ventilator 06/18/20 09:00 114 32 140/76 (97) 89 06/18/20 08:30 119 30 139/80 (99) 90 06/18/20 08:22 80 06/18/20 08:19 80 06/18/20 08:00 100 06/18/20 08:00 98.8 109 28 123/100 (108) 97 06/18/20 08:00 110 06/18/20 08:00 Mechanical Ventilator Mechanical Ventilator 06/18/20 07:00 112 18 138/65 (89) 100 06/18/20 06:45 100 28 100 06/18/20 06:30 95 27 06/18/20 06:00 115 23 136/74 (94) 96 06/18/20 05:00 96 21 118/62 (80) 95 06/18/20 04:15 20 Mechanical Ventilator 06/18/20 04:00 86 06/18/20 04:00 99.6 105 22 100/54 (69) 97 06/18/20 04:00 Mechanical Ventilator Mechanical Ventilator 06/18/20 04:00 55 06/18/20 03:34 96 21 55 06/18/20 03:15 20 Mechanical Ventilator 06/18/20 03:15 28 140/79 Mechanical Ventilator 50 06/18/20 03:00 103 25 99/56 (70) 94 06/18/20 02:15 21 Mechanical Ventilator 06/18/20 02:15 26 133/76 Mechanical Ventilator 50 06/18/20 02:00 91 18 98/59 (72) 95 06/18/20 01:15 19 Mechanical Ventilator 06/18/20 01:15 21 112/57 Mechanical Ventilator 06/18/20 01:03 20 112/57 Mechanical Ventilator 55 06/18/20 01:00 88 21 112/57 (75) 97 06/18/20 00:15 19 Mechanical Ventilator 55 06/18/20 00:15 20 105/70 Mechanical Ventilator 06/18/20 00:00 84 06/18/20 00:00 55 06/18/20 00:00 Mechanical Ventilator Mechanical Ventilator 06/18/20 00:00 98.7 84 20 116/57 (76) 96 06/17/20 23:25 22 Mechanical Ventilator 55 06/17/20 23:15 82 20 50 06/17/20 23:15 20 Mechanical Ventilator 55 06/17/20 23:15 20 103/57 Mechanical Ventilator 55 06/17/20 23:00 86 20 109/55 (73) 93 06/17/20 22:15 19 Endotracheal Tube 06/17/20 22:15 21 105/62 Endotracheal Tube 06/17/20 22:00 82 21 105/62 (76) 96 06/17/20 21:15 20 06/17/20 21:15 18 95/53 Endotracheal Tube 06/17/20 21:00 75 18 95/53 (67) 98 06/17/20 20:15 29 Endotracheal Tube 06/17/20 20:15 19 94/54 Endotracheal Tube 06/17/20 20:00 96.8 72 19 94/54 (67) 100 06/17/20 20:00 55 06/17/20 20:00 72 06/17/20 20:00 Mechanical Ventilator Mechanical Ventilator 06/17/20 19:17 70 19 50 06/17/20 19:15 30 Endotracheal Tube 06/17/20 19:15 19 93/58 Endotracheal Tube 06/17/20 19:00 68 17 93/58 (70) 100 06/17/20 18:00 70 19 99/63 (75) 100 06/17/20 17:45 67 16 105/67 (80) 99 06/17/20 17:30 69 18 101/67 (78) 99 06/17/20 17:15 73 16 114/68 (83) 95 06/17/20 17:15 Mechanical Ventilator 06/17/20 17:15 17 114/68 Mechanical Ventilator 06/17/20 17:00 76 17 113/73 (86) 94 06/17/20 16:45 84 31 113/63 (80) 93 06/17/20 16:30 69 5 103/60 (74) 100 06/17/20 16:15 Mechanical Ventilator 06/17/20 16:15 2 95/55 06/17/20 16:15 69 1 95/55 (68) 100 06/17/20 16:00 72 06/17/20 16:00 55 06/17/20 16:00 97.2 72 0 94/58 (70) 100 06/17/20 16:00 Mechanical Ventilator Mechanical Ventilator 06/17/20 15:45 69 0 100/58 (72) 100 06/17/20 15:39 82 20 50 06/17/20 15:30 67 15 107/62 (77) 100 06/17/20 15:15 73 0 109/61 (77) 100 06/17/20 15:15 Mechanical Ventilator 06/17/20 15:15 0 102/60 Mechanical Ventilator 06/17/20 15:00 71 2 101/64 (76) 100 06/17/20 14:30 71 0 100/60 (73) 100 06/17/20 14:15 Mechanical Ventilator 06/17/20 14:15 71 0 102/60 (74) 100 06/17/20 14:00 79 16 98/60 (73) 100 06/17/20 13:30 73 16 93/58 (70) 100 06/17/20 13:15 Mechanical Ventilator 06/17/20 13:15 17 102/61 Mechanical Ventilator 06/17/20 13:15 72 17 102/61 (75) 100 06/17/20 13:00 76 17 106/63 (77) 100 06/17/20 12:45 74 17 107/62 (77) 100 06/17/20 12:30 78 16 113/64 (80) 98 06/17/20 12:15 Mechanical Ventilator 06/17/20 12:15 76 15 100/58 (72) 99 06/17/20 12:00 75 06/17/20 12:00 Mechanical Ventilator Mechanical Ventilator 06/17/20 12:00 98.3 71 15 115/68 (84) 97 06/17/20 12:00 55 06/17/20 11:39 89 22 50 06/17/20 11:12 18 118/69 06/17/20 11:00 73 16 107/66 (80) 100 06/17/20 10:45 75 19 110/62 (78) 100 06/17/20 10:30 75 18 115/65 (82) 99 1/25/21 10:15 18 112/63 Mechanical Ventilator 06/17/20 10:15 76 16 112/63 (79) 98 06/17/20 10:00 79 19 109/59 (76) 100 06/17/20 09:45 98 18 122/66 (84) 90 06/17/20 09:30 83 18 123/71 (88) 98 06/17/20 09:15 85 20 123/68 (86) 96 06/17/20 09:15 17 122/66 Mechanical Ventilator 06/17/20 09:15 20 Mechanical Ventilator 06/17/20 09:00 98.5 87 21 122/70 (87) 95 06/17/20 08:30 93 28 138/71 (93) 94 06/17/20 08:15 19 148/87 Mechanical Ventilator 06/17/20 08:15 23 Mechanical Ventilator 06/17/20 08:15 92 23 145/87 (106) 96 06/17/20 08:00 55 06/17/20 08:00 80 06/17/20 08:00 84 15 123/68 (86) 95 06/17/20 08:00 Mechanical Ventilator Mechanical Ventilator 06/17/20 07:35 99 20 50 06/17/20 07:15 20 118/72 Mechanical Ventilator 55 06/17/20 07:15 20 Mechanical Ventilator 55 06/17/20 07:00 79 20 118/72 (87) 98 06/17/20 06:30 78 20 06/17/20 06:30 78 20 111/63 (79) 98 Intake and Output 06/18/20 06/19/20 19:00 07:00 Intake Total 1507.94 ml 1280 ml Output Total 845 ml 435 ml Balance 662.94 ml 845 ml Free Water 60 ml IV Total 777.94 ml 740 ml Tube Feeding 720 ml 480 ml Other 10 ml Output Urine Total 745 ml 435 ml Stool Total 100 ml # Bowel Movements 3 2 Labs Test 06/16/20 06:56 06/16/20 10:16 06/16/20 11:46 06/16/20 17:14 White Blood Count 10.4 K/UL (4.8-10.8) Red Blood Count 2.92 M/UL (4.20-5.40) Hemoglobin 8.6 G/DL (12.0-16.0) Hematocrit 27.0 % (37.0-47.0) Mean Corpuscular Volume 93 FL (80-99) Mean Corpuscular Hemoglobin 29.5 PG (27.0-31.0) Mean Corpuscular Hemoglobin Concent 31.9 G/DL (32.0-36.0) Red Cell Distribution Width 15.4 % (11.6-14.8) Platelet Count 213 K/UL (150-450) Mean Platelet Volume 8.1 FL (6.5-10.1) Neutrophils (%) (Auto) 75.7 % (45.0-75.0) Lymphocytes (%) (Auto) 16.3 % (20.0-45.0) Monocytes (%) (Auto) 2.6 % (1.0-10.0) Eosinophils (%) (Auto) 4.6 % (0.0-3.0) Basophils (%) (Auto) 0.7 % (0.0-2.0) Sodium Level 147 MMOL/L (136-145) Potassium Level 3.3 MMOL/L (3.5-5.1) Chloride Level 110 MMOL/L (98-107) Carbon Dioxide Level 32 MMOL/L (21-32) Anion Gap 5 mmol/L (5-15) Blood Urea Nitrogen 33 mg/dL (7-18) Creatinine 0.9 MG/DL (0.55-1.30) Estimat Glomerular Filtration Rate > 60 mL/min (>60) Glucose Level 123 MG/DL (74-106) Calcium Level 8.7 MG/DL (8.5-10.1) Arterial Blood pH 7.420 (7.350-7.450) Arterial Blood Partial Pressure CO2 52.5 mmHg (35.0-45.0) Arterial Blood Partial Pressure O2 61.6 mmHg (75.0-100.0) Arterial Blood HCO3 33.3 mmol/L (22.0-26.0) Arterial Blood Oxygen Saturation 91.8 % (95-100) Arterial Blood Base Excess 7.7 (-2-2) Jeremiah Test Positive POC Whole Blood Glucose 218 MG/DL (74-106) Test 06/17/20 05:18 06/17/20 06:03 06/17/20 12:20 06/17/20 17:02 White Blood Count 9.5 K/UL (4.8-10.8) Red Blood Count 3.10 M/UL (4.20-5.40) Hemoglobin 9.0 G/DL (12.0-16.0) Hematocrit 28.7 % (37.0-47.0) Mean Corpuscular Volume 93 FL (80-99) Mean Corpuscular Hemoglobin 29.0 PG (27.0-31.0) Mean Corpuscular Hemoglobin Concent 31.3 G/DL (32.0-36.0) Red Cell Distribution Width 15.1 % (11.6-14.8) Platelet Count 205 K/UL (150-450) Mean Platelet Volume 8.1 FL (6.5-10.1) Neutrophils (%) (Auto) 77.5 % (45.0-75.0) Lymphocytes (%) (Auto) 12.7 % (20.0-45.0) Monocytes (%) (Auto) 2.4 % (1.0-10.0) Eosinophils (%) (Auto) 6.7 % (0.0-3.0) Basophils (%) (Auto) 0.7 % (0.0-2.0) Sodium Level 147 MMOL/L (136-145) Potassium Level 3.9 MMOL/L (3.5-5.1) Chloride Level 109 MMOL/L (98-107) Carbon Dioxide Level 32 MMOL/L (21-32) Anion Gap 6 mmol/L (5-15) Blood Urea Nitrogen 29 mg/dL (7-18) Creatinine 0.7 MG/DL (0.55-1.30) Estimat Glomerular Filtration Rate > 60 mL/min (>60) Glucose Level 114 MG/DL (74-106) Calcium Level 8.9 MG/DL (8.5-10.1) Phosphorus Level 2.3 MG/DL (2.5-4.9) Magnesium Level 1.8 MG/DL (1.8-2.4) Total Bilirubin 0.7 MG/DL (0.2-1.0) Direct Bilirubin 0.3 MG/DL (0.0-0.3) Aspartate Amino Transf (AST/SGOT) 33 U/L (15-37) Alanine Aminotransferase (ALT/SGPT) 20 U/L (12-78) Alkaline Phosphatase 40 U/L (46-116) C-Reactive Protein, Quantitative 3.2 mg/dL (0.00-0.90) Pro-B-Type Natriuretic Peptide 768 pg/mL (0-125) Total Protein 5.5 G/DL (6.4-8.2) Albumin 2.1 G/DL (3.4-5.0) POC Whole Blood Glucose 149 MG/DL (74-106) Test 06/17/20 23:33 06/18/20 03:07 06/18/20 04:00 06/18/20 23:48 POC Whole Blood Glucose 136 MG/DL (74-106) 97 MG/DL (74-106) 147 MG/DL (74-106) White Blood Count 10.5 K/UL (4.8-10.8) Red Blood Count 2.95 M/UL (4.20-5.40) Hemoglobin 8.6 G/DL (12.0-16.0) Hematocrit 27.1 % (37.0-47.0) Mean Corpuscular Volume 92 FL (80-99) Mean Corpuscular Hemoglobin 29.2 PG (27.0-31.0) Mean Corpuscular Hemoglobin Concent 31.9 G/DL (32.0-36.0) Red Cell Distribution Width 15.6 % (11.6-14.8) Platelet Count 231 K/UL (150-450) Mean Platelet Volume 8.7 FL (6.5-10.1) Neutrophils (%) (Auto) 73.5 % (45.0-75.0) Lymphocytes (%) (Auto) 16.7 % (20.0-45.0) Monocytes (%) (Auto) 1.4 % (1.0-10.0) Eosinophils (%) (Auto) 8.1 % (0.0-3.0) Basophils (%) (Auto) 0.3 % (0.0-2.0) Sodium Level 142 MMOL/L (136-145) Potassium Level 3.9 MMOL/L (3.5-5.1) Chloride Level 107 MMOL/L (98-107) Carbon Dioxide Level 32 MMOL/L (21-32) Anion Gap 3 mmol/L (5-15) Blood Urea Nitrogen 25 mg/dL (7-18) Creatinine 0.7 MG/DL (0.55-1.30) Estimat Glomerular Filtration Rate > 60 mL/min (>60) Glucose Level 96 MG/DL (74-106) Calcium Level 8.6 MG/DL (8.5-10.1) Test 06/19/20 03:35 White Blood Count 10.3 K/UL (4.8-10.8) Red Blood Count 2.82 M/UL (4.20-5.40) Hemoglobin 8.2 G/DL (12.0-16.0) Hematocrit 25.7 % (37.0-47.0) Mean Corpuscular Volume 91 FL (80-99) Mean Corpuscular Hemoglobin 29.2 PG (27.0-31.0) Mean Corpuscular Hemoglobin Concent 32.0 G/DL (32.0-36.0) Red Cell Distribution Width 15.9 % (11.6-14.8) Platelet Count 228 K/UL (150-450) Mean Platelet Volume 7.9 FL (6.5-10.1) Neutrophils (%) (Auto) 79.0 % (45.0-75.0) Lymphocytes (%) (Auto) 12.9 % (20.0-45.0) Monocytes (%) (Auto) 1.9 % (1.0-10.0) Eosinophils (%) (Auto) 5.5 % (0.0-3.0) Basophils (%) (Auto) 0.6 % (0.0-2.0) Sodium Level 142 MMOL/L (136-145) Potassium Level 3.9 MMOL/L (3.5-5.1) Chloride Level 105 MMOL/L (98-107) Carbon Dioxide Level 33 MMOL/L (21-32) Anion Gap 4 mmol/L (5-15) Blood Urea Nitrogen 21 mg/dL (7-18) Creatinine 0.6 MG/DL (0.55-1.30) Estimat Glomerular Filtration Rate > 60 mL/min (>60) Glucose Level 124 MG/DL (74-106) Uric Acid 0.9 MG/DL (2.6-7.2) Calcium Level 8.6 MG/DL (8.5-10.1) Phosphorus Level 2.3 MG/DL (2.5-4.9) Magnesium Level 1.6 MG/DL (1.8-2.4) Total Bilirubin 0.8 MG/DL (0.2-1.0) Aspartate Amino Transf (AST/SGOT) 42 U/L (15-37) Alanine Aminotransferase (ALT/SGPT) 26 U/L (12-78) Alkaline Phosphatase 66 U/L (46-116) C-Reactive Protein, Quantitative 8.8 mg/dL (0.00-0.90) Total Protein 5.6 G/DL (6.4-8.2) Albumin 1.9 G/DL (3.4-5.0) Globulin 3.7 g/dL Albumin/Globulin Ratio 0.5 (1.0-2.7) Height (Feet): 5 Height (Inches): 5.00 Weight (Pounds): 308 Objective GeNL: nv Pulm: vent++ CV: rrr Abd: soft, nt, nd Ext: no cce Myron Condon MD Jun 19, 2020 06:23
--- NOTE | 2020-06-19 06:27 | General Progress Note ---
Subjective ROS Limited/Unobtainable: Yes Allergies: Coded Allergies: No Known Allergies (Unverified , 05/28/20) Subjective events noted interval notes reviewed glucose values are stable sedated and intubated Item Value Date Time Bedside Blood Glucose 146 mg/dl H 06/19/20 0605 Bedside Blood Glucose 147 mg/dl H 06/19/20 0000 Bedside Blood Glucose 169 mg/dl H 06/18/20 1800 Bedside Blood Glucose 209 mg/dl H 06/18/20 1257 Bedside Blood Glucose 97 mg/dl 06/18/20 0600 Objective Last 24 Hour Vital Signs Date Time Temp Pulse Resp B/P (MAP) Pulse Ox O2 Delivery O2 Flow Rate FiO2 06/19/20 04:00 25 Mechanical Ventilator 100 06/19/20 03:40 96 25 100 06/19/20 03:29 28 Mechanical Ventilator 100 06/19/20 02:30 108 32 124/62 (82) 95 06/19/20 02:29 28 Mechanical Ventilator 100 06/19/20 02:00 102 31 136/66 (89) 94 06/19/20 01:30 100 36 140/71 (94) 94 06/19/20 01:29 28 Mechanical Ventilator 100 06/19/20 01:00 89 23 133/67 (89) 97 06/19/20 00:30 99 28 120/43 (68) 88 06/19/20 00:29 28 Mechanical Ventilator 100 06/19/20 00:00 Mechanical Ventilator Mechanical Ventilator 06/19/20 00:00 100 06/19/20 00:00 94 06/19/20 00:00 99.2 85 27 117/63 (81) 96 06/18/20 23:40 84 25 100 06/18/20 23:40 97 34 100 06/18/20 23:30 83 23 115/69 (84) 98 06/18/20 23:29 25 Mechanical Ventilator 100 06/18/20 23:00 94 27 107/66 (80) 99 06/18/20 22:30 111 35 133/78 (96) 99 06/18/20 22:29 30 Mechanical Ventilator 100 06/18/20 22:00 96 31 106/76 (86) 98 06/18/20 21:30 95 32 106/62 (77) 99 06/18/20 21:29 30 Mechanical Ventilator 100 06/18/20 21:07 25 Mechanical Ventilator 100 06/18/20 21:00 97 28 102/63 (76) 99 06/18/20 20:30 89 29 107/68 (81) 99 06/18/20 20:29 31 Mechanical Ventilator 100 06/18/20 20:00 99.2 90 30 114/62 (79) 98 06/18/20 20:00 Mechanical Ventilator Mechanical Ventilator 06/18/20 20:00 95 06/18/20 20:00 100 06/18/20 19:30 89 24 105/60 (75) 99 06/18/20 19:29 26 Mechanical Ventilator 100 06/18/20 19:00 85 23 99/65 (76) 99 06/18/20 18:00 97 26 109/71 (84) 100 06/18/20 17:29 Mechanical Ventilator 06/18/20 17:15 95 23 96/51 (66) 99 06/18/20 17:02 96 23 88/52 (64) 99 06/18/20 17:00 94 22 89/55 (66) 99 06/18/20 16:29 Mechanical Ventilator 06/18/20 16:15 89 24 90/51 (64) 100 06/18/20 16:00 100 06/18/20 16:00 Mechanical Ventilator Mechanical Ventilator 06/18/20 16:00 98.8 90 25 91/50 (64) 100 06/18/20 16:00 96 06/18/20 15:48 95 25 100 06/18/20 15:29 Mechanical Ventilator 06/18/20 14:29 Mechanical Ventilator 06/18/20 14:00 94 21 96/73 (81) 100 06/18/20 13:29 Mechanical Ventilator 06/18/20 13:00 99 21 115/76 (89) 100 06/18/20 12:45 99 22 125/73 (90) 99 06/18/20 12:30 99 24 124/71 (88) 100 06/18/20 12:29 Mechanical Ventilator 06/18/20 12:15 102 20 134/82 (99) 99 06/18/20 12:09 Mechanical Ventilator 06/18/20 12:00 Mechanical Ventilator Mechanical Ventilator 06/18/20 12:00 100 06/18/20 12:00 112 06/18/20 12:00 98.3 105 23 126/80 (95) 100 06/18/20 11:29 123 35 100 06/18/20 11:29 Mechanical Ventilator 06/18/20 11:00 128 33 127/90 (102) 90 06/18/20 11:00 100 06/18/20 10:53 127 35 132/81 (98) 87 06/18/20 10:29 Mechanical Ventilator 06/18/20 10:00 108 28 134/75 (94) 97 06/18/20 09:26 23 Mechanical Ventilator 06/18/20 09:00 114 32 140/76 (97) 89 06/18/20 08:30 119 30 139/80 (99) 90 06/18/20 08:22 80 06/18/20 08:19 80 06/18/20 08:00 100 06/18/20 08:00 98.8 109 28 123/100 (108) 97 06/18/20 08:00 110 06/18/20 08:00 Mechanical Ventilator Mechanical Ventilator 06/18/20 07:00 112 18 138/65 (89) 100 06/18/20 06:45 100 28 100 06/18/20 06:30 95 27 Intake and Output 06/18/20 06/19/20 19:00 07:00 Intake Total 1507.94 ml 1280 ml Output Total 845 ml 435 ml Balance 662.94 ml 845 ml Free Water 60 ml IV Total 777.94 ml 740 ml Tube Feeding 720 ml 480 ml Other 10 ml Output Urine Total 745 ml 435 ml Stool Total 100 ml # Bowel Movements 3 2 Laboratory Tests 06/18/20 23:48: POC Whole Blood Glucose 147H 06/19/20 03:35: White Blood Count 10.3, Red Blood Count 2.82L, Hemoglobin 8.2L, Hematocrit 25.7L , Mean Corpuscular Volume 91, Mean Corpuscular Hemoglobin 29.2, Mean Corpuscular Hemoglobin Concent 32.0, Red Cell Distribution Width 15.9H, Platelet Count 228, Mean Platelet Volume 7.9, Neutrophils (%) (Auto) 79.0H, Lymphocytes (%) (Auto) 12.9L, Monocytes (%) (Auto) 1.9, Eosinophils (%) (Auto) 5.5H, Basophils (%) (Auto) 0.6, Sodium Level 142, Potassium Level 3.9, Chloride Level 105, Carbon Dioxide Level 33H, Anion Gap 4L, Blood Urea Nitrogen 21H, Creatinine 0.6, Estimat Glomerular Filtration Rate > 60, Glucose Level 124H, Uric Acid 0.9L, Calcium Level 8.6, Phosphorus Level 2.3L, Magnesium Level 1.6L, Total Bilirubin 0.8, Aspartate Amino Transf (AST/SGOT) 42H, Alanine Aminotransferase (ALT/SGPT) 26, Alkaline Phosphatase 66, C-Reactive Protein, Quantitative 8.8H, Total Protein 5.6L, Albumin 1.9L, Globulin 3.7, Albumin/Globulin Ratio 0.5L Height (Feet): 5 Height (Inches): 5.00 Weight (Pounds): 308 General Appearance: other - intubated EENT: other - ETT Cardiovascular: normal rate Respiratory/Chest: decreased breath sounds Objective Current Medications Medications (Trade) Dose Ordered Sig/Zelda Route PRN Reason Start Time Stop Time Status Last Admin Dose Admin Acetaminophen (Tylenol) 650 mg Q4H PRN NG Temp >100.5 05/31/20 21:45 06/30/20 21:44 06/15/20 22:30 Acetaminophen (Tylenol) 650 mg Q6H PRN NG Mild Pain (Pain Scale 1-3) 06/06/20 18:00 07/06/20 17:59 06/13/20 23:10 Chlorhexidine Gluconate (Inna-Hex 2%) 1 applic DAILY@2000 TOPIC 05/30/20 20:00 08/28/20 19:59 06/18/20 19:56 Dextrose (Dextrose 50%) 25 ml Q30M PRN IV Hypoglycemia 06/05/20 10:45 09/03/20 10:44 Dextrose (Dextrose 50%) 50 ml Q30M PRN IV Hypoglycemia 06/05/20 10:45 09/03/20 10:44 Docusate Sodium (Colace) 100 mg Q12HR GT 06/07/20 21:00 07/07/20 20:59 06/17/20 21:02 Enoxaparin Sodium (Lovenox) 40 mg DAILY SUBQ 05/30/20 10:00 08/28/20 09:59 06/17/20 08:52 Fentanyl Citrate 250 ml @ 1 mls/hr Q24H IV 06/18/20 08:00 06/20/20 07:59 Insulin Aspart (NovoLOG) EVERY 6 HOURS SUBQ 06/07/20 00:00 09/03/20 11:59 06/19/20 06:05 Insulin Aspart (NovoLOG) 18 units EVERY 6 HOURS SUBQ 06/18/20 12:00 09/04/20 08:59 06/18/20 23:52 Methylprednisolone Sodium Succinate (Solu-MEDROL) 10 mg DAILY IVP 06/18/20 09:00 09/16/20 08:59 06/18/20 09:24 Midazolam HCl 100 mg/Dextrose 200 ml @ 0 mls/hr Q24H PRN IV sedation 06/17/20 12:00 06/19/20 11:59 06/18/20 21:07 Midodrine (Pro-Amatine) 10 mg Q8HR ORAL 06/14/20 14:00 09/12/20 13:59 06/19/20 06:02 Pantoprazole (Protonix) 40 mg Q12HR IVP 06/13/20 21:00 07/03/20 08:59 06/18/20 21:03 Piperacillin Sod/ Tazobactam Sod 3.375 gm/Sodium Chloride 110 ml @ 27.5 mls/hr Q8HR IVPB 06/14/20 22:00 06/21/20 21:59 06/19/20 06:02 Polyethylene Glycol (Miralax) 17 gm BEDTIME GT 06/07/20 21:00 07/07/20 20:59 06/17/20 21:02 Sodium Chloride 1,000 ml @ 50 mls/hr Q20H IV 06/06/20 08:00 07/06/20 07:59 06/18/20 17:30 Assessment/Plan Problem List: (1) Diabetes mellitus out of control ICD Codes: E11.65 - Type 2 diabetes mellitus with hyperglycemia SNOMED: 21527269, 305037633 (2) Pneumonia due to COVID-19 virus ICD Codes: U07.1 - COVID-19; J12.82 - Pneumonia due to coronavirus disease 2019 SNOMED: 275642518267681328 (3) Respiratory distress ICD Codes: R06.03 - Acute respiratory distress; J12.82 - Pneumonia due to coronavirus disease 2019 SNOMED: 645360466 Status: unchanged Assessment/Plan: continue Novolog 18 units every 6 hours continue Novolog sliding scale every 6 hours Huber Adame MD Jun 19, 2020 06:27
--- NOTE | 2020-06-19 06:49 | NUR ---
CASE MANAGEMENT:REVIEW 06/19/20 SI: [facility] ACUTE RESPIRATORY FAILURE~ INTUBATED 99.2 108 32 124/62 95% ON VENT SUPPORT W/100% FIO2 IS: VERSED GTT IV SOLUMEDROL 10MG QD IV ZOSYN Q8HRS IVF@50/HR IV PROTONIX Q12 MIDODRINE NG Q8HRS : ICU STATUS DCP: FROM HOME PLAN: WEANING ~ PEEP 5.0 HOLD LOVENOX Addendum: 06/19/20 at 0654 by YUMI UMANAN LABS: H/H-8.2/25.7 CO2+33 BUN+21 PHOS-2.3 MAG-1.6 ALB-1.9
--- NOTE | 2020-06-19 07:28 | NUR ---
NURSE NOTES: Wasted Fentanyl 130ml,witnessed by RAKEL Ramirez
--- NOTE | 2020-06-19 07:30 | NUR ---
NURSE NOTES: Received report from RAKEL Kendrick. Patient is awake and calm at this time. ETT 7.0/23cm at lip line with vent OGT intact and running with Vital AF @ 60ml/hr. Rectal tube intact and draining. Elnnon intact and draining with yellow color urine. Right upper arm PICC intact and running with NS @50ml/hr, Held versed for sedation vacation. Bilateral soft wrist restraints on. Restraints sites clean, skin intact. Kept dry, clean and comfortable. Will continue plan of care.
--- NOTE | 2020-06-19 07:59 | NUR ---
NURSE HAND-OFF REPORT: Latest Vital Signs: Temperature 100.7 , Pulse 104 , B/P 133 /61 , Respiratory Rate 36 , O2 SAT 97 , Mechanical Ventilator, O2 Flow Rate . Vital Sign Comment: EKG Rhythm: Sinus Rhythm Rhythm change?: N MD Notified?: - MD Response: Latest Meyers Fall Score: 70 Fall Risk: High Risk Safety Measures: Call light Within Reach, Bed Alarm Zone 1, Side Rails Side Rails x2, Bed position Low and Locked. Fall Precautions: Yellow Socks Report given to .
[2020-06-19] MEDS: fentaNYL 2500mcg/NS 250ml 250 ML IV SCH (08:00)
[2020-06-19] MEDS: Solu-MEDROL 40mg Inj IVP SCH (08:11)
[2020-06-19] MEDS: Pantoprazole Inj IVP SCH ×2 (08:11→20:53)
[2020-06-19] MEDS: Enoxaparin 40mg Inj SUBQ SCH (08:13)
[2020-06-19] MEDS: Docusate 100mg/10ml Liq GT SCH ×2 (08:50→20:51)
--- NOTE | 2020-06-19 09:23 | General Progress Note ---
Subjective Constitutional: Reports: weakness Allergies: Coded Allergies: No Known Allergies (Unverified , 05/28/20) All Systems: reviewed and negative except above Subjective intubated sedated ng in icu Objective Last 24 Hour Vital Signs Date Time Temp Pulse Resp B/P (MAP) Pulse Ox O2 Delivery O2 Flow Rate FiO2 06/19/20 07:46 104 36 100 06/19/20 07:00 99 32 133/61 (85) 97 06/19/20 06:30 106 33 113/65 (81) 96 06/19/20 06:30 111 27 06/19/20 06:00 100.7 111 31 110/58 (75) 97 06/19/20 05:30 108 32 105/60 (75) 96 06/19/20 05:00 102 25 115/61 (79) 98 06/19/20 04:30 104 28 96/51 (66) 97 06/19/20 04:00 99 06/19/20 04:00 100.0 102 27 100/49 (66) 97 06/19/20 04:00 25 Mechanical Ventilator 100 06/19/20 04:00 Mechanical Ventilator Mechanical Ventilator 06/19/20 04:00 100 06/19/20 03:40 96 25 100 06/19/20 03:30 103 29 113/58 (76) 98 06/19/20 03:29 28 Mechanical Ventilator 100 06/19/20 03:00 100 28 148/115 (126) 96 06/19/20 02:30 108 32 124/62 (82) 95 06/19/20 02:29 28 Mechanical Ventilator 100 06/19/20 02:00 102 31 136/66 (89) 94 06/19/20 01:30 100 36 140/71 (94) 94 06/19/20 01:29 28 Mechanical Ventilator 100 06/19/20 01:00 89 23 133/67 (89) 97 06/19/20 00:30 99 28 120/43 (68) 88 06/19/20 00:29 28 Mechanical Ventilator 100 06/19/20 00:00 Mechanical Ventilator Mechanical Ventilator 06/19/20 00:00 100 06/19/20 00:00 94 06/19/20 00:00 99.2 85 27 117/63 (81) 96 06/18/20 23:40 84 25 100 1/26/21 23:40 97 34 100 06/18/20 23:30 83 23 115/69 (84) 98 06/18/20 23:29 25 Mechanical Ventilator 100 06/18/20 23:00 94 27 107/66 (80) 99 06/18/20 22:30 111 35 133/78 (96) 99 06/18/20 22:29 30 Mechanical Ventilator 100 06/18/20 22:00 96 31 106/76 (86) 98 06/18/20 21:30 95 32 106/62 (77) 99 06/18/20 21:29 30 Mechanical Ventilator 100 06/18/20 21:07 25 Mechanical Ventilator 100 06/18/20 21:00 97 28 102/63 (76) 99 06/18/20 20:30 89 29 107/68 (81) 99 06/18/20 20:29 31 Mechanical Ventilator 100 06/18/20 20:00 99.2 90 30 114/62 (79) 98 06/18/20 20:00 Mechanical Ventilator Mechanical Ventilator 06/18/20 20:00 95 06/18/20 20:00 100 06/18/20 19:30 89 24 105/60 (75) 99 06/18/20 19:29 26 Mechanical Ventilator 100 06/18/20 19:00 85 23 99/65 (76) 99 06/18/20 18:00 97 26 109/71 (84) 100 06/18/20 17:29 Mechanical Ventilator 06/18/20 17:15 95 23 96/51 (66) 99 06/18/20 17:02 96 23 88/52 (64) 99 06/18/20 17:00 94 22 89/55 (66) 99 06/18/20 16:29 Mechanical Ventilator 06/18/20 16:15 89 24 90/51 (64) 100 06/18/20 16:00 100 06/18/20 16:00 Mechanical Ventilator Mechanical Ventilator 06/18/20 16:00 98.8 90 25 91/50 (64) 100 06/18/20 16:00 96 06/18/20 15:48 95 25 100 06/18/20 15:29 Mechanical Ventilator 06/18/20 14:29 Mechanical Ventilator 06/18/20 14:00 94 21 96/73 (81) 100 06/18/20 13:29 Mechanical Ventilator 06/18/20 13:00 99 21 115/76 (89) 100 06/18/20 12:45 99 22 125/73 (90) 99 06/18/20 12:30 99 24 124/71 (88) 100 06/18/20 12:29 Mechanical Ventilator 06/18/20 12:15 102 20 134/82 (99) 99 06/18/20 12:09 Mechanical Ventilator 06/18/20 12:00 Mechanical Ventilator Mechanical Ventilator 06/18/20 12:00 100 06/18/20 12:00 112 06/18/20 12:00 98.3 105 23 126/80 (95) 100 06/18/20 11:29 123 35 100 06/18/20 11:29 Mechanical Ventilator 06/18/20 11:00 128 33 127/90 (102) 90 06/18/20 11:00 100 06/18/20 10:53 127 35 132/81 (98) 87 06/18/20 10:29 Mechanical Ventilator 06/18/20 10:00 108 28 134/75 (94) 97 06/18/20 09:26 23 Mechanical Ventilator Intake and Output 06/18/20 06/19/20 19:00 07:00 Intake Total 1507.94 ml 1550 ml Output Total 845 ml 685 ml Balance 662.94 ml 865 ml Free Water 90 ml IV Total 777.94 ml 740 ml Tube Feeding 720 ml 720 ml Other 10 ml Output Urine Total 745 ml 635 ml Stool Total 100 ml 50 ml # Bowel Movements 3 3 Laboratory Tests 06/18/20 23:48: POC Whole Blood Glucose 147H 06/19/20 03:35: White Blood Count 10.3, Red Blood Count 2.82L, Hemoglobin 8.2L, Hematocrit 25.7L , Mean Corpuscular Volume 91, Mean Corpuscular Hemoglobin 29.2, Mean Corpuscular Hemoglobin Concent 32.0, Red Cell Distribution Width 15.9H, Platelet Count 228, Mean Platelet Volume 7.9, Neutrophils (%) (Auto) 79.0H, Lymphocytes (%) (Auto) 12.9L, Monocytes (%) (Auto) 1.9, Eosinophils (%) (Auto) 5.5H, Basophils (%) (Auto) 0.6, Sodium Level 142, Potassium Level 3.9, Chloride Level 105, Carbon Dioxide Level 33H, Anion Gap 4L, Blood Urea Nitrogen 21H, Creatinine 0.6, Estimat Glomerular Filtration Rate > 60, Glucose Level 124H, Uric Acid 0.9L, Calcium Level 8.6, Phosphorus Level 2.3L, Magnesium Level 1.6L, Total Bilirubin 0.8, Aspartate Amino Transf (AST/SGOT) 42H, Alanine Aminotransferase (ALT/SGPT) 26, Alkaline Phosphatase 66, C-Reactive Protein, Quantitative 8.8H, Total Protein 5.6L, Albumin 1.9L, Globulin 3.7, Albumin/Globulin Ratio 0.5L Height (Feet): 5 Height (Inches): 5.00 Weight (Pounds): 308 General Appearance: lethargic EENT: normal ENT inspection Neck: normal alignment Cardiovascular: normal peripheral pulses, normal rate, regular rhythm Respiratory/Chest: chest wall non-tender, lungs clear, normal breath sounds Abdomen: normal bowel sounds, non tender, soft Extremities: normal inspection Edema: no edema noted Arm (L), no edema noted Arm (R), no edema noted Leg (L), no edema noted Leg (R), no edema noted Pedal (L), no edema noted Pedal (R), no edema noted Generalized Neurologic: motor weakness Skin: normal pigmentation, warm/dry Assessment/Plan Problem List: (1) Hypoxia ICD Codes: R09.02 - Hypoxemia SNOMED: 105474841 (2) Respiratory failure ICD Codes: J96.90 - Respiratory failure, unspecified, unspecified whether with hypoxia or hypercapnia SNOMED: 151489809 (3) Respiratory distress ICD Codes: R06.03 - Acute respiratory distress; J12.82 - Pneumonia due to coronavirus disease 2019 SNOMED: 531363091 (4) Pneumonia due to COVID-19 virus ICD Codes: U07.1 - COVID-19; J12.82 - Pneumonia due to coronavirus disease 2019 SNOMED: 481385323043971909 Status: unchanged Assessment/Plan: vent abx id pulm f/u cbc bmp am Tank Del Cid DO Jun 19, 2020 09:23
--- NOTE | 2020-06-19 09:45 | NUR ---
NURSE NOTES: Seen by Dr. Nava and updated patient status. NNO.
--- NOTE | 2020-06-19 10:05 | NUR ---
NURSE NOTES: Seen by Dr. Tyler and assessed patient. And made aware of pt's Mg 1.6. He said he will take care of it. Will continue plan of care.
--- NOTE | 2020-06-19 10:25 | Pulmonology Progress Note ---
Subjective ROS Limited/Unobtainable: Yes Interval Events: Remains intubated Constitutional: Reports: fever, other - T=103 HEENT: Repors: no symptoms Respiratory: Reports: no symptoms Cardiovascular: Reports: no symptoms Gastrointestinal/Abdominal: Reports: no symptoms Genitourinary: Reports: no symptoms Allergies: Coded Allergies: No Known Allergies (Unverified , 05/28/20) All Systems: reviewed and negative except above Objective Last 24 Hour Vital Signs Date Time Temp Pulse Resp B/P (MAP) Pulse Ox O2 Delivery O2 Flow Rate FiO2 06/19/20 09:30 99 34 124/62 (82) 97 06/19/20 09:00 102 34 132/70 (90) 98 06/19/20 08:30 105 34 126/78 (94) 97 06/19/20 08:00 100 06/19/20 08:00 Mechanical Ventilator Mechanical Ventilator 06/19/20 08:00 100.7 100 33 139/61 (87) 98 06/19/20 07:46 104 36 100 06/19/20 07:30 103 35 131/58 (82) 98 06/19/20 07:00 99 32 133/61 (85) 97 06/19/20 06:30 106 33 113/65 (81) 96 06/19/20 06:30 111 27 06/19/20 06:00 100.7 111 31 110/58 (75) 97 06/19/20 05:30 108 32 105/60 (75) 96 06/19/20 05:00 102 25 115/61 (79) 98 06/19/20 04:30 104 28 96/51 (66) 97 06/19/20 04:00 99 06/19/20 04:00 100.0 102 27 100/49 (66) 97 06/19/20 04:00 25 Mechanical Ventilator 100 06/19/20 04:00 Mechanical Ventilator Mechanical Ventilator 06/19/20 04:00 100 06/19/20 03:40 96 25 100 06/19/20 03:30 103 29 113/58 (76) 98 06/19/20 03:29 28 Mechanical Ventilator 100 06/19/20 03:00 100 28 148/115 (126) 96 06/19/20 02:30 108 32 124/62 (82) 95 06/19/20 02:29 28 Mechanical Ventilator 100 06/19/20 02:00 102 31 136/66 (89) 94 06/19/20 01:30 100 36 140/71 (94) 94 06/19/20 01:29 28 Mechanical Ventilator 100 06/19/20 01:00 89 23 133/67 (89) 97 06/19/20 00:30 99 28 120/43 (68) 88 06/19/20 00:29 28 Mechanical Ventilator 100 06/19/20 00:00 Mechanical Ventilator Mechanical Ventilator 06/19/20 00:00 100 06/19/20 00:00 94 06/19/20 00:00 99.2 85 27 117/63 (81) 96 06/18/20 23:40 84 25 100 06/18/20 23:40 97 34 100 06/18/20 23:30 83 23 115/69 (84) 98 06/18/20 23:29 25 Mechanical Ventilator 100 06/18/20 23:00 94 27 107/66 (80) 99 06/18/20 22:30 111 35 133/78 (96) 99 06/18/20 22:29 30 Mechanical Ventilator 100 06/18/20 22:00 96 31 106/76 (86) 98 06/18/20 21:30 95 32 106/62 (77) 99 06/18/20 21:29 30 Mechanical Ventilator 100 06/18/20 21:07 25 Mechanical Ventilator 100 06/18/20 21:00 97 28 102/63 (76) 99 06/18/20 20:30 89 29 107/68 (81) 99 06/18/20 20:29 31 Mechanical Ventilator 100 06/18/20 20:00 99.2 90 30 114/62 (79) 98 06/18/20 20:00 Mechanical Ventilator Mechanical Ventilator 06/18/20 20:00 95 06/18/20 20:00 100 06/18/20 19:30 89 24 105/60 (75) 99 06/18/20 19:29 26 Mechanical Ventilator 100 06/18/20 19:00 85 23 99/65 (76) 99 06/18/20 18:00 97 26 109/71 (84) 100 06/18/20 17:29 Mechanical Ventilator 06/18/20 17:15 95 23 96/51 (66) 99 06/18/20 17:02 96 23 88/52 (64) 99 06/18/20 17:00 94 22 89/55 (66) 99 06/18/20 16:29 Mechanical Ventilator 06/18/20 16:15 89 24 90/51 (64) 100 06/18/20 16:00 100 06/18/20 16:00 Mechanical Ventilator Mechanical Ventilator 06/18/20 16:00 98.8 90 25 91/50 (64) 100 06/18/20 16:00 96 06/18/20 15:48 95 25 100 06/18/20 15:29 Mechanical Ventilator 06/18/20 14:29 Mechanical Ventilator 06/18/20 14:00 94 21 96/73 (81) 100 06/18/20 13:29 Mechanical Ventilator 06/18/20 13:00 99 21 115/76 (89) 100 06/18/20 12:45 99 22 125/73 (90) 99 06/18/20 12:30 99 24 124/71 (88) 100 06/18/20 12:29 Mechanical Ventilator 06/18/20 12:15 102 20 134/82 (99) 99 06/18/20 12:09 Mechanical Ventilator 06/18/20 12:00 Mechanical Ventilator Mechanical Ventilator 06/18/20 12:00 100 06/18/20 12:00 112 06/18/20 12:00 98.3 105 23 126/80 (95) 100 06/18/20 11:29 123 35 100 06/18/20 11:29 Mechanical Ventilator 06/18/20 11:00 128 33 127/90 (102) 90 06/18/20 11:00 100 06/18/20 10:53 127 35 132/81 (98) 87 06/18/20 10:29 Mechanical Ventilator Intake and Output 06/18/20 06/19/20 19:00 07:00 Intake Total 1507.94 ml 1550 ml Output Total 845 ml 685 ml Balance 662.94 ml 865 ml Free Water 90 ml IV Total 777.94 ml 740 ml Tube Feeding 720 ml 720 ml Other 10 ml Output Urine Total 745 ml 635 ml Stool Total 100 ml 50 ml # Bowel Movements 3 3 General Appearance: no acute distress HEENT: normocephalic Respiratory: chest wall non-tender Cardiovascular: normal peripheral pulses Abdomen: normal bowel sounds Laboratory Tests 06/18/20 23:48: POC Whole Blood Glucose 147H 06/19/20 03:35: White Blood Count 10.3, Red Blood Count 2.82L, Hemoglobin 8.2L, Hematocrit 25.7L , Mean Corpuscular Volume 91, Mean Corpuscular Hemoglobin 29.2, Mean Corpuscular Hemoglobin Concent 32.0, Red Cell Distribution Width 15.9H, Platelet Count 228, Mean Platelet Volume 7.9, Neutrophils (%) (Auto) 79.0H, Lymphocytes (%) (Auto) 12.9L, Monocytes (%) (Auto) 1.9, Eosinophils (%) (Auto) 5.5H, Basophils (%) (Auto) 0.6, Sodium Level 142, Potassium Level 3.9, Chloride Level 105, Carbon Dioxide Level 33H, Anion Gap 4L, Blood Urea Nitrogen 21H, Creatinine 0.6, Estimat Glomerular Filtration Rate > 60, Glucose Level 124H, Uric Acid 0.9L, Calcium Level 8.6, Phosphorus Level 2.3L, Magnesium Level 1.6L, Total Bilirubin 0.8, Aspartate Amino Transf (AST/SGOT) 42H, Alanine Aminotransferase (ALT/SGPT) 26, Alkaline Phosphatase 66, C-Reactive Protein, Quantitative 8.8H, Total Protein 5.6L, Albumin 1.9L, Globulin 3.7, Albumin/Globulin Ratio 0.5L Current Medications Medications (Trade) Dose Ordered Sig/Zelda Route PRN Reason Start Time Stop Time Status Last Admin Dose Admin Acetaminophen (Tylenol) 650 mg Q4H PRN NG Temp >100.5 05/31/20 21:45 06/30/20 21:44 06/15/20 22:30 Acetaminophen (Tylenol) 650 mg Q6H PRN NG Mild Pain (Pain Scale 1-3) 06/06/20 18:00 07/06/20 17:59 06/13/20 23:10 Chlorhexidine Gluconate (Inna-Hex 2%) 1 applic DAILY@1999 TOPIC 05/30/20 20:00 08/28/20 19:59 06/18/20 19:56 Dextrose (Dextrose 50%) 25 ml Q30M PRN IV Hypoglycemia 06/05/20 10:45 09/03/20 10:44 Dextrose (Dextrose 50%) 50 ml Q30M PRN IV Hypoglycemia 06/05/20 10:45 09/03/20 10:44 Docusate Sodium (Colace) 100 mg Q12HR GT 06/07/20 21:00 07/07/20 20:59 06/17/20 21:02 Enoxaparin Sodium (Lovenox) 40 mg DAILY SUBQ 05/30/20 10:00 08/28/20 09:59 06/19/20 08:13 Fentanyl Citrate 250 ml @ 1 mls/hr Q24H IV 06/18/20 08:00 06/20/20 07:59 Insulin Aspart (NovoLOG) EVERY 6 HOURS SUBQ 06/07/20 00:00 09/03/20 11:59 06/19/20 06:05 Insulin Aspart (NovoLOG) 18 units EVERY 6 HOURS SUBQ 06/18/20 12:00 09/04/20 08:59 06/19/20 06:56 Methylprednisolone Sodium Succinate (Solu-MEDROL) 10 mg DAILY IVP 06/18/20 09:00 09/16/20 08:59 06/19/20 08:11 Midazolam HCl 100 mg/Dextrose 200 ml @ 0 mls/hr Q24H PRN IV sedation 06/17/20 12:00 06/19/20 11:59 06/18/20 21:07 Midodrine (Pro-Amatine) 10 mg Q8HR ORAL 06/14/20 14:00 09/12/20 13:59 06/19/20 06:02 Pantoprazole (Protonix) 40 mg Q12HR IVP 06/13/20 21:00 07/03/20 08:59 06/19/20 08:11 Piperacillin Sod/ Tazobactam Sod 3.375 gm/Sodium Chloride 110 ml @ 27.5 mls/hr Q8HR IVPB 06/14/20 22:00 06/21/20 21:59 06/19/20 06:02 Polyethylene Glycol (Miralax) 17 gm BEDTIME GT 06/07/20 21:00 07/07/20 20:59 06/17/20 21:02 Sodium Chloride 1,000 ml @ 50 mls/hr Q20H IV 06/06/20 08:00 07/06/20 07:59 06/18/20 17:30 Assessment/Plan Assessment/Plan 1. COVID-19 pneumonia -Intubated 05/28/20 - We will continue broad-spectrum antibiotics. - On solumedrol -On Rocephin -Continue monitoring SaO2 and keep it >92% -Continue PEEP 10->8; - Peak airway pressures high; approx 48 now - FiO2 100% -> 90 ->80->60 ->40 ->80 -> 100%; -will continue OGT feeding -Continue sedation -Need to keep patient completely sedated. 2. Hyponatremia -Per primary MD 3. Elevated inflammatory markers - has high D dimer; Lovenox on hold due to hematuria 4. Decrease PEEP Continue weaning efforts May need trach Javier Nava MD Jun 19, 2020 10:25
[2020-06-19] MEDS: Acetaminophen 650mg/20.3ml NG PRN (11:15)
--- NOTE | 2020-06-19 11:35 | Infectious Diseases Prog Note ---
Assessment/Plan Assessment/Plan antibiotics : zosyn A 1. covid 19 pneumonia on 55 % Fi O2 with 100 % saturation s/p remdesivir 2. respiratory failure 3. serratia pneumonia P 1. continue zosyn 1 more day 2. d/c solumedrol 3. continue isolation Subjective ROS Limited/Unobtainable: Yes Allergies: Coded Allergies: No Known Allergies (Unverified , 05/28/20) Objective Last 24 Hour Vital Signs Date Time Temp Pulse Resp B/P (MAP) Pulse Ox O2 Delivery O2 Flow Rate FiO2 06/19/20 10:00 35 Mechanical Ventilator 100 06/19/20 09:30 99 34 124/62 (82) 97 06/19/20 09:00 102 34 132/70 (90) 98 06/19/20 09:00 33 Mechanical Ventilator 100 06/19/20 08:30 34 Mechanical Ventilator 100 06/19/20 08:30 105 34 126/78 (94) 97 06/19/20 08:00 100 06/19/20 08:00 Mechanical Ventilator Mechanical Ventilator 06/19/20 08:00 100.7 100 33 139/61 (87) 98 06/19/20 08:00 33 Mechanical Ventilator 100 06/19/20 07:46 104 36 100 06/19/20 07:30 103 35 131/58 (82) 98 06/19/20 07:30 33 Mechanical Ventilator 100 06/19/20 07:00 99 32 133/61 (85) 97 06/19/20 06:30 106 33 113/65 (81) 96 06/19/20 06:30 111 27 06/19/20 06:00 100.7 111 31 110/58 (75) 97 06/19/20 05:30 108 32 105/60 (75) 96 06/19/20 05:00 102 25 115/61 (79) 98 06/19/20 04:30 104 28 96/51 (66) 97 06/19/20 04:00 99 06/19/20 04:00 100.0 102 27 100/49 (66) 97 06/19/20 04:00 25 Mechanical Ventilator 100 06/19/20 04:00 Mechanical Ventilator Mechanical Ventilator 06/19/20 04:00 100 06/19/20 03:40 96 25 100 06/19/20 03:30 103 29 113/58 (76) 98 06/19/20 03:29 28 Mechanical Ventilator 100 06/19/20 03:00 100 28 148/115 (126) 96 06/19/20 02:30 108 32 124/62 (82) 95 06/19/20 02:29 28 Mechanical Ventilator 100 06/19/20 02:00 102 31 136/66 (89) 94 06/19/20 01:30 100 36 140/71 (94) 94 06/19/20 01:29 28 Mechanical Ventilator 100 06/19/20 01:00 89 23 133/67 (89) 97 06/19/20 00:30 99 28 120/43 (68) 88 06/19/20 00:29 28 Mechanical Ventilator 100 06/19/20 00:00 Mechanical Ventilator Mechanical Ventilator 06/19/20 00:00 100 06/19/20 00:00 94 06/19/20 00:00 99.2 85 27 117/63 (81) 96 06/18/20 23:40 84 25 100 06/18/20 23:40 97 34 100 06/18/20 23:30 83 23 115/69 (84) 98 06/18/20 23:29 25 Mechanical Ventilator 100 06/18/20 23:00 94 27 107/66 (80) 99 06/18/20 22:30 111 35 133/78 (96) 99 06/18/20 22:29 30 Mechanical Ventilator 100 06/18/20 22:00 96 31 106/76 (86) 98 06/18/20 21:30 95 32 106/62 (77) 99 06/18/20 21:29 30 Mechanical Ventilator 100 06/18/20 21:07 25 Mechanical Ventilator 100 06/18/20 21:00 97 28 102/63 (76) 99 06/18/20 20:30 89 29 107/68 (81) 99 06/18/20 20:29 31 Mechanical Ventilator 100 06/18/20 20:00 99.2 90 30 114/62 (79) 98 06/18/20 20:00 Mechanical Ventilator Mechanical Ventilator 06/18/20 20:00 95 06/18/20 20:00 100 06/18/20 19:30 89 24 105/60 (75) 99 06/18/20 19:29 26 Mechanical Ventilator 100 06/18/20 19:00 85 23 99/65 (76) 99 06/18/20 18:00 97 26 109/71 (84) 100 06/18/20 17:29 Mechanical Ventilator 06/18/20 17:15 95 23 96/51 (66) 99 06/18/20 17:02 96 23 88/52 (64) 99 06/18/20 17:00 94 22 89/55 (66) 99 06/18/20 16:29 Mechanical Ventilator 06/18/20 16:15 89 24 90/51 (64) 100 06/18/20 16:00 100 06/18/20 16:00 Mechanical Ventilator Mechanical Ventilator 06/18/20 16:00 98.8 90 25 91/50 (64) 100 06/18/20 16:00 96 06/18/20 15:48 95 25 100 06/18/20 15:29 Mechanical Ventilator 06/18/20 14:29 Mechanical Ventilator 06/18/20 14:00 94 21 96/73 (81) 100 06/18/20 13:29 Mechanical Ventilator 06/18/20 13:00 99 21 115/76 (89) 100 06/18/20 12:45 99 22 125/73 (90) 99 06/18/20 12:30 99 24 124/71 (88) 100 06/18/20 12:29 Mechanical Ventilator 06/18/20 12:15 102 20 134/82 (99) 99 06/18/20 12:09 Mechanical Ventilator 06/18/20 12:00 Mechanical Ventilator Mechanical Ventilator 06/18/20 12:00 100 06/18/20 12:00 112 06/18/20 12:00 98.3 105 23 126/80 (95) 100 Height (Feet): 5 Height (Inches): 5.00 Weight (Pounds): 308 HEENT: other - intubated Laboratory Tests Test 06/18/20 23:48 06/19/20 03:35 POC Whole Blood Glucose 147 MG/DL (74-106) H White Blood Count 10.3 K/UL (4.8-10.8) Red Blood Count 2.82 M/UL (4.20-5.40) L Hemoglobin 8.2 G/DL (12.0-16.0) L Hematocrit 25.7 % (37.0-47.0) L Mean Corpuscular Volume 91 FL (80-99) Mean Corpuscular Hemoglobin 29.2 PG (27.0-31.0) Mean Corpuscular Hemoglobin Concent 32.0 G/DL (32.0-36.0) Red Cell Distribution Width 15.9 % (11.6-14.8) H Platelet Count 228 K/UL (150-450) Mean Platelet Volume 7.9 FL (6.5-10.1) Neutrophils (%) (Auto) 79.0 % (45.0-75.0) H Lymphocytes (%) (Auto) 12.9 % (20.0-45.0) L Monocytes (%) (Auto) 1.9 % (1.0-10.0) Eosinophils (%) (Auto) 5.5 % (0.0-3.0) H Basophils (%) (Auto) 0.6 % (0.0-2.0) Sodium Level 142 MMOL/L (136-145) Potassium Level 3.9 MMOL/L (3.5-5.1) Chloride Level 105 MMOL/L (98-107) Carbon Dioxide Level 33 MMOL/L (21-32) H Anion Gap 4 mmol/L (5-15) L Blood Urea Nitrogen 21 mg/dL (7-18) H Creatinine 0.6 MG/DL (0.55-1.30) Estimat Glomerular Filtration Rate > 60 mL/min (>60) Glucose Level 124 MG/DL (74-106) H Uric Acid 0.9 MG/DL (2.6-7.2) L Calcium Level 8.6 MG/DL (8.5-10.1) Phosphorus Level 2.3 MG/DL (2.5-4.9) L Magnesium Level 1.6 MG/DL (1.8-2.4) L Total Bilirubin 0.8 MG/DL (0.2-1.0) Aspartate Amino Transf (AST/SGOT) 42 U/L (15-37) H Alanine Aminotransferase (ALT/SGPT) 26 U/L (12-78) Alkaline Phosphatase 66 U/L (46-116) C-Reactive Protein, Quantitative 8.8 mg/dL (0.00-0.90) H Total Protein 5.6 G/DL (6.4-8.2) L Albumin 1.9 G/DL (3.4-5.0) L Globulin 3.7 g/dL Albumin/Globulin Ratio 0.5 (1.0-2.7) L Current Medications Medications (Trade) Dose Ordered Sig/Zelda Route PRN Reason Start Time Stop Time Status Last Admin Dose Admin Acetaminophen (Tylenol) 650 mg Q4H PRN NG Temp >100.5 05/31/20 21:45 06/30/20 21:44 06/19/20 11:15 Acetaminophen (Tylenol) 650 mg Q6H PRN NG Mild Pain (Pain Scale 1-3) 06/06/20 18:00 07/06/20 17:59 06/13/20 23:10 Chlorhexidine Gluconate (Inna-Hex 2%) 1 applic DAILY@2000 TOPIC 05/30/20 20:00 08/28/20 19:59 06/18/20 19:56 Dextrose (Dextrose 50%) 25 ml Q30M PRN IV Hypoglycemia 06/05/20 10:45 09/03/20 10:44 Dextrose (Dextrose 50%) 50 ml Q30M PRN IV Hypoglycemia 06/05/20 10:45 09/03/20 10:44 Docusate Sodium (Colace) 100 mg Q12HR GT 06/07/20 21:00 07/07/20 20:59 06/17/20 21:02 Enoxaparin Sodium (Lovenox) 40 mg DAILY SUBQ 05/30/20 10:00 08/28/20 09:59 06/19/20 08:13 Fentanyl Citrate 250 ml @ 1 mls/hr Q24H IV 06/18/20 08:00 06/20/20 07:59 Insulin Aspart (NovoLOG) EVERY 6 HOURS SUBQ 06/07/20 00:00 09/03/20 11:59 06/19/20 11:14 Insulin Aspart (NovoLOG) 18 units EVERY 6 HOURS SUBQ 06/18/20 12:00 09/04/20 08:59 06/19/20 11:14 Methylprednisolone Sodium Succinate (Solu-MEDROL) 10 mg DAILY IVP 06/18/20 09:00 09/16/20 08:59 06/19/20 08:11 Midazolam HCl 100 mg/Dextrose 200 ml @ 0 mls/hr Q24H PRN IV sedation 06/17/20 12:00 06/19/20 11:59 06/18/20 21:07 Midodrine (Pro-Amatine) 10 mg Q8HR ORAL 06/14/20 14:00 09/12/20 13:59 06/19/20 06:02 Pantoprazole (Protonix) 40 mg Q12HR IVP 06/13/20 21:00 07/03/20 08:59 06/19/20 08:11 Piperacillin Sod/ Tazobactam Sod 3.375 gm/Sodium Chloride 110 ml @ 27.5 mls/hr Q8HR IVPB 06/14/20 22:00 06/21/20 21:59 06/19/20 06:02 Polyethylene Glycol (Miralax) 17 gm BEDTIME GT 06/07/20 21:00 07/07/20 20:59 06/17/20 21:02 Sodium Chloride 1,000 ml @ 50 mls/hr Q20H IV 06/06/20 08:00 07/06/20 07:59 06/18/20 17:30 Fili Mcelroy MD Jun 19, 2020 11:35
--- NOTE | 2020-06-19 13:00 | NUR ---
NURSE NOTES: Still running versed 2mg/hr to meet RASS -2. Will continue plan of care.
[2020-06-19] MEDS: D5W IV PRN (13:01)
[2020-06-19] MEDS: MIDAZOLAM HCL IV PRN (13:01)
--- NOTE | 2020-06-19 14:39 | Nephrology Progress Note ---
Assessment/Plan Problem List: (1) DEVENDRA (acute kidney injury) (2) Morbid obesity (3) Diabetes mellitus out of control (4) Pneumonia due to COVID-19 virus (5) Respiratory failure Assessment Acute renal failure Obstructive uropathy, clogged Lennon Respiratory failure COVID-19 pneumonia Morbid obesity Plan June 19: Labs reviewed. Abnormal electrolytes noted and addressed. Remains intubated on ventilator. Remains full code. June 18: Labs reviewed. Remains intubated on ventilator. Full code. Abnormal electrolyte addressed. Continue as is. June 17: Labs reviewed. Abnormal electrolytes addressed. Patient remains full code and intubated on ventilator. Continue per consultants. Renal parameters are within normal limits. June 16: Labs reviewed. Potassium chloride replaced. Remains full code. R emains intubated on ventilator. Continue per consultants. Continue to monitor renal parameters. June 15: Labs reviewed. Serum creatinine 1. Stable from renal standpoint to view. Continue per consultants. June 14: Labs reviewed. Full code. Serum creatinine of 3.5 down to 1.4. Low potassium addressed. Continue per current treatment plan. Continue to monitor renal parameters. Midodrine started. Albumin bolus given. Previously: DC Lasix drip Increase Protonix dose Monitor renal parameters, electrolytes Per orders Subjective ROS Limited/Unobtainable: Yes Objective Objective Last 24 Hour Vital Signs Date Time Temp Pulse Resp B/P (MAP) Pulse Ox O2 Delivery O2 Flow Rate FiO2 06/19/20 14:00 91 33 122/67 (85) 98 06/19/20 13:01 35 Mechanical Ventilator 100 06/19/20 13:00 91 36 119/71 (87) 97 06/19/20 12:30 94 35 111/73 (86) 100 06/19/20 12:00 99 06/19/20 12:00 Mechanical Ventilator Mechanical Ventilator 06/19/20 12:00 98 35 113/56 (75) 100 06/19/20 12:00 100 06/19/20 11:45 100.6 06/19/20 11:30 97 34 115/64 (81) 99 06/19/20 11:20 98 33 100 06/19/20 11:00 99 35 117/72 (87) 97 06/19/20 10:30 98 35 120/67 (84) 98 06/19/20 10:00 35 Mechanical Ventilator 100 06/19/20 10:00 99 35 126/62 (83) 97 06/19/20 09:30 99 34 124/62 (82) 97 06/19/20 09:00 102 34 132/70 (90) 98 06/19/20 09:00 33 Mechanical Ventilator 100 06/19/20 08:30 34 Mechanical Ventilator 100 06/19/20 08:30 105 34 126/78 (94) 97 06/19/20 08:00 100 06/19/20 08:00 98 06/19/20 08:00 Mechanical Ventilator Mechanical Ventilator 06/19/20 08:00 100.7 100 33 139/61 (87) 98 06/19/20 08:00 33 Mechanical Ventilator 100 06/19/20 07:46 104 36 100 06/19/20 07:30 103 35 131/58 (82) 98 06/19/20 07:30 33 Mechanical Ventilator 100 06/19/20 07:00 99 32 133/61 (85) 97 06/19/20 06:30 106 33 113/65 (81) 96 06/19/20 06:30 111 27 06/19/20 06:00 100.7 111 31 110/58 (75) 97 06/19/20 05:30 108 32 105/60 (75) 96 06/19/20 05:00 102 25 115/61 (79) 98 06/19/20 04:30 104 28 96/51 (66) 97 06/19/20 04:00 99 06/19/20 04:00 100.0 102 27 100/49 (66) 97 06/19/20 04:00 25 Mechanical Ventilator 100 06/19/20 04:00 Mechanical Ventilator Mechanical Ventilator 06/19/20 04:00 100 06/19/20 03:40 96 25 100 06/19/20 03:30 103 29 113/58 (76) 98 06/19/20 03:29 28 Mechanical Ventilator 100 06/19/20 03:00 100 28 148/115 (126) 96 06/19/20 02:30 108 32 124/62 (82) 95 06/19/20 02:29 28 Mechanical Ventilator 100 06/19/20 02:00 102 31 136/66 (89) 94 06/19/20 01:30 100 36 140/71 (94) 94 06/19/20 01:29 28 Mechanical Ventilator 100 06/19/20 01:00 89 23 133/67 (89) 97 06/19/20 00:30 99 28 120/43 (68) 88 06/19/20 00:29 28 Mechanical Ventilator 100 06/19/20 00:00 Mechanical Ventilator Mechanical Ventilator 06/19/20 00:00 100 06/19/20 00:00 94 06/19/20 00:00 99.2 85 27 117/63 (81) 96 06/18/20 23:40 84 25 100 06/18/20 23:40 97 34 100 06/18/20 23:30 83 23 115/69 (84) 98 06/18/20 23:29 25 Mechanical Ventilator 100 06/18/20 23:00 94 27 107/66 (80) 99 06/18/20 22:30 111 35 133/78 (96) 99 06/18/20 22:29 30 Mechanical Ventilator 100 06/18/20 22:00 96 31 106/76 (86) 98 06/18/20 21:30 95 32 106/62 (77) 99 06/18/20 21:29 30 Mechanical Ventilator 100 06/18/20 21:07 25 Mechanical Ventilator 100 06/18/20 21:00 97 28 102/63 (76) 99 06/18/20 20:30 89 29 107/68 (81) 99 06/18/20 20:29 31 Mechanical Ventilator 100 06/18/20 20:00 99.2 90 30 114/62 (79) 98 06/18/20 20:00 Mechanical Ventilator Mechanical Ventilator 06/18/20 20:00 95 06/18/20 20:00 100 06/18/20 19:30 89 24 105/60 (75) 99 06/18/20 19:29 26 Mechanical Ventilator 100 06/18/20 19:00 85 23 99/65 (76) 99 06/18/20 18:00 97 26 109/71 (84) 100 06/18/20 17:29 Mechanical Ventilator 06/18/20 17:15 95 23 96/51 (66) 99 06/18/20 17:02 96 23 88/52 (64) 99 06/18/20 17:00 94 22 89/55 (66) 99 06/18/20 16:29 Mechanical Ventilator 06/18/20 16:15 89 24 90/51 (64) 100 06/18/20 16:00 100 06/18/20 16:00 Mechanical Ventilator Mechanical Ventilator 06/18/20 16:00 98.8 90 25 91/50 (64) 100 06/18/20 16:00 96 06/18/20 15:48 95 25 100 06/18/20 15:29 Mechanical Ventilator Intake and Output 06/18/20 06/19/20 19:00 07:00 Intake Total 1507.94 ml 1677.5 ml Output Total 845 ml 685 ml Balance 662.94 ml 992.5 ml Free Water 90 ml IV Total 777.94 ml 867.5 ml Tube Feeding 720 ml 720 ml Other 10 ml Output Urine Total 745 ml 635 ml Stool Total 100 ml 50 ml # Bowel Movements 3 3 Current Medications Medications (Trade) Dose Ordered Sig/Zelda Route PRN Reason Start Time Stop Time Status Last Admin Dose Admin Acetaminophen (Tylenol) 650 mg Q4H PRN NG Temp >100.5 05/31/20 21:45 06/30/20 21:44 06/19/20 11:15 Acetaminophen (Tylenol) 650 mg Q6H PRN NG Mild Pain (Pain Scale 1-3) 06/06/20 18:00 07/06/20 17:59 06/13/20 23:10 Chlorhexidine Gluconate (Inna-Hex 2%) 1 applic DAILY@2000 TOPIC 05/30/20 20:00 08/28/20 19:59 06/18/20 19:56 Dextrose (Dextrose 50%) 25 ml Q30M PRN IV Hypoglycemia 06/05/20 10:45 09/03/20 10:44 Dextrose (Dextrose 50%) 50 ml Q30M PRN IV Hypoglycemia 06/05/20 10:45 09/03/20 10:44 Docusate Sodium (Colace) 100 mg Q12HR GT 06/07/20 21:00 07/07/20 20:59 06/17/20 21:02 Enoxaparin Sodium (Lovenox) 40 mg DAILY SUBQ 05/30/20 10:00 08/28/20 09:59 06/19/20 08:13 Fentanyl Citrate 250 ml @ 1 mls/hr Q24H IV 06/18/20 08:00 06/20/20 07:59 Insulin Aspart (NovoLOG) EVERY 6 HOURS SUBQ 06/07/20 00:00 09/03/20 11:59 06/19/20 11:14 Insulin Aspart (NovoLOG) 18 units EVERY 6 HOURS SUBQ 06/18/20 12:00 09/04/20 08:59 06/19/20 11:14 Midazolam HCl 100 mg/Dextrose 200 ml @ 0 mls/hr Q24H PRN IV sedation 06/19/20 11:46 06/21/20 11:45 06/19/20 13:01 Midodrine (Pro-Amatine) 10 mg Q8HR ORAL 06/14/20 14:00 09/12/20 13:59 06/19/20 13:00 Pantoprazole (Protonix) 40 mg Q12HR IVP 06/13/20 21:00 07/03/20 08:59 06/19/20 08:11 Piperacillin Sod/ Tazobactam Sod 3.375 gm/Sodium Chloride 110 ml @ 27.5 mls/hr Q8HR IVPB 06/14/20 22:00 06/21/20 21:59 06/19/20 13:00 Polyethylene Glycol (Miralax) 17 gm BEDTIME GT 06/07/20 21:00 07/07/20 20:59 06/17/20 21:02 Sodium Chloride 1,000 ml @ 50 mls/hr Q20H IV 06/06/20 08:00 07/06/20 07:59 06/18/20 17:30 Laboratory Tests 06/18/20 23:48: POC Whole Blood Glucose 147H 06/19/20 03:35: White Blood Count 10.3, Red Blood Count 2.82L, Hemoglobin 8.2L, Hematocrit 25.7L , Mean Corpuscular Volume 91, Mean Corpuscular Hemoglobin 29.2, Mean Corpuscular Hemoglobin Concent 32.0, Red Cell Distribution Width 15.9H, Platelet Count 228, Mean Platelet Volume 7.9, Neutrophils (%) (Auto) 79.0H, Lymphocytes (%) (Auto) 12.9L, Monocytes (%) (Auto) 1.9, Eosinophils (%) (Auto) 5.5H, Basophils (%) (Auto) 0.6, Sodium Level 142, Potassium Level 3.9, Chloride Level 105, Carbon Dioxide Level 33H, Anion Gap 4L, Blood Urea Nitrogen 21H, Creatinine 0.6, Estimat Glomerular Filtration Rate > 60, Glucose Level 124H, Uric Acid 0.9L, Calcium Level 8.6, Phosphorus Level 2.3L, Magnesium Level 1.6L, Total Bilirubin 0.8, Aspartate Amino Transf (AST/SGOT) 42H, Alanine Aminotransferase (ALT/SGPT) 26, Alkaline Phosphatase 66, C-Reactive Protein, Quantitative 8.8H, Total Pro tein 5.6L, Albumin 1.9L, Globulin 3.7, Albumin/Globulin Ratio 0.5L Height (Feet): 5 Height (Inches): 5.00 Weight (Pounds): 308 General Appearance: no apparent distress Cardiovascular: tachycardia Respiratory/Chest: decreased breath sounds Abdomen: distended Rigo Tyler MD Jun 19, 2020 14:39
--- NOTE | 2020-06-19 16:11 | NUR ---
NURSE NOTES: Bed bath given. Kept dry, clean and comfortable.
--- NOTE | 2020-06-19 16:58 | Surgery Progress Note ---
Surgery Progress Note Subjective Additional Comments ill appearing on support no n/v Objective Last 24 Hour Vital Signs Date Time Temp Pulse Resp B/P (MAP) Pulse Ox O2 Delivery O2 Flow Rate FiO2 06/19/20 16:00 80 06/19/20 16:00 83 30 127/71 (89) 96 06/19/20 16:00 Mechanical Ventilator Mechanical Ventilator 06/19/20 16:00 100 06/19/20 15:30 84 34 100 06/19/20 15:00 80 30 135/81 (99) 96 06/19/20 14:00 91 33 122/67 (85) 98 06/19/20 13:01 35 Mechanical Ventilator 100 06/19/20 13:00 91 36 119/71 (87) 97 06/19/20 12:30 94 35 111/73 (86) 100 06/19/20 12:00 99 06/19/20 12:00 Mechanical Ventilator Mechanical Ventilator 06/19/20 12:00 98 35 113/56 (75) 100 06/19/20 12:00 100 06/19/20 11:45 100.6 06/19/20 11:30 97 34 115/64 (81) 99 06/19/20 11:20 98 33 100 06/19/20 11:00 99 35 117/72 (87) 97 06/19/20 10:30 98 35 120/67 (84) 98 06/19/20 10:00 35 Mechanical Ventilator 100 06/19/20 10:00 99 35 126/62 (83) 97 06/19/20 09:30 99 34 124/62 (82) 97 06/19/20 09:00 102 34 132/70 (90) 98 06/19/20 09:00 33 Mechanical Ventilator 100 06/19/20 08:30 34 Mechanical Ventilator 100 06/19/20 08:30 105 34 126/78 (94) 97 06/19/20 08:00 100 06/19/20 08:00 98 06/19/20 08:00 Mechanical Ventilator Mechanical Ventilator 06/19/20 08:00 100.7 100 33 139/61 (87) 98 06/19/20 08:00 33 Mechanical Ventilator 100 06/19/20 07:46 104 36 100 06/19/20 07:30 103 35 131/58 (82) 98 06/19/20 07:30 33 Mechanical Ventilator 100 06/19/20 07:00 99 32 133/61 (85) 97 06/19/20 06:30 106 33 113/65 (81) 96 06/19/20 06:30 111 27 06/19/20 06:00 100.7 111 31 110/58 (75) 97 06/19/20 05:30 108 32 105/60 (75) 96 06/19/20 05:00 102 25 115/61 (79) 98 06/19/20 04:30 104 28 96/51 (66) 97 06/19/20 04:00 99 06/19/20 04:00 100.0 102 27 100/49 (66) 97 06/19/20 04:00 25 Mechanical Ventilator 100 06/19/20 04:00 Mechanical Ventilator Mechanical Ventilator 06/19/20 04:00 100 06/19/20 03:40 96 25 100 06/19/20 03:30 103 29 113/58 (76) 98 06/19/20 03:29 28 Mechanical Ventilator 100 06/19/20 03:00 100 28 148/115 (126) 96 06/19/20 02:30 108 32 124/62 (82) 95 06/19/20 02:29 28 Mechanical Ventilator 100 06/19/20 02:00 102 31 136/66 (89) 94 06/19/20 01:30 100 36 140/71 (94) 94 06/19/20 01:29 28 Mechanical Ventilator 100 06/19/20 01:00 89 23 133/67 (89) 97 06/19/20 00:30 99 28 120/43 (68) 88 06/19/20 00:29 28 Mechanical Ventilator 100 06/19/20 00:00 Mechanical Ventilator Mechanical Ventilator 06/19/20 00:00 100 06/19/20 00:00 94 06/19/20 00:00 99.2 85 27 117/63 (81) 96 06/18/20 23:40 84 25 100 06/18/20 23:40 97 34 100 06/18/20 23:30 83 23 115/69 (84) 98 06/18/20 23:29 25 Mechanical Ventilator 100 06/18/20 23:00 94 27 107/66 (80) 99 06/18/20 22:30 111 35 133/78 (96) 99 06/18/20 22:29 30 Mechanical Ventilator 100 06/18/20 22:00 96 31 106/76 (86) 98 06/18/20 21:30 95 32 106/62 (77) 99 06/18/20 21:29 30 Mechanical Ventilator 100 06/18/20 21:07 25 Mechanical Ventilator 100 06/18/20 21:00 97 28 102/63 (76) 99 06/18/20 20:30 89 29 107/68 (81) 99 06/18/20 20:29 31 Mechanical Ventilator 100 06/18/20 20:00 99.2 90 30 114/62 (79) 98 06/18/20 20:00 Mechanical Ventilator Mechanical Ventilator 06/18/20 20:00 95 06/18/20 20:00 100 06/18/20 19:30 89 24 105/60 (75) 99 06/18/20 19:29 26 Mechanical Ventilator 100 06/18/20 19:00 85 23 99/65 (76) 99 06/18/20 18:00 97 26 109/71 (84) 100 06/18/20 17:29 Mechanical Ventilator 06/18/20 17:15 95 23 96/51 (66) 99 06/18/20 17:02 96 23 88/52 (64) 99 06/18/20 17:00 94 22 89/55 (66) 99 I&O Intake and Output 06/18/20 06/19/20 19:00 07:00 Intake Total 1507.94 ml 1677.5 ml Output Total 845 ml 685 ml Balance 662.94 ml 992.5 ml Free Water 90 ml IV Total 777.94 ml 867.5 ml Tube Feeding 720 ml 720 ml Other 10 ml Output Urine Total 745 ml 635 ml Stool Total 100 ml 50 ml # Bowel Movements 3 3 Cardiovascular: RSR Respiratory: decreased breath sounds Abdomen: soft, non-tender, present bowel sounds Extremities: no cyanosis Laboratory Tests Test 06/18/20 23:48 06/19/20 03:35 POC Whole Blood Glucose 147 MG/DL (74-106) H White Blood Count 10.3 K/UL (4.8-10.8) Red Blood Count 2.82 M/UL (4.20-5.40) L Hemoglobin 8.2 G/DL (12.0-16.0) L Hematocrit 25.7 % (37.0-47.0) L Mean Corpuscular Volume 91 FL (80-99) Mean Corpuscular Hemoglobin 29.2 PG (27.0-31.0) Mean Corpuscular Hemoglobin Concent 32.0 G/DL (32.0-36.0) Red Cell Distribution Width 15.9 % (11.6-14.8) H Platelet Count 228 K/UL (150-450) Mean Platelet Volume 7.9 FL (6.5-10.1) Neutrophils (%) (Auto) 79.0 % (45.0-75.0) H Lymphocytes (%) (Auto) 12.9 % (20.0-45.0) L Monocytes (%) (Auto) 1.9 % (1.0-10.0) Eosinophils (%) (Auto) 5.5 % (0.0-3.0) H Basophils (%) (Auto) 0.6 % (0.0-2.0) Sodium Level 142 MMOL/L (136-145) Potassium Level 3.9 MMOL/L (3.5-5.1) Chloride Level 105 MMOL/L (98-107) Carbon Dioxide Level 33 MMOL/L (21-32) H Anion Gap 4 mmol/L (5-15) L Blood Urea Nitrogen 21 mg/dL (7-18) H Creatinine 0.6 MG/DL (0.55-1.30) Estimat Glomerular Filtration Rate > 60 mL/min (>60) Glucose Level 124 MG/DL (74-106) H Uric Acid 0.9 MG/DL (2.6-7.2) L Calcium Level 8.6 MG/DL (8.5-10.1) Phosphorus Level 2.3 MG/DL (2.5-4.9) L Magnesium Level 1.6 MG/DL (1.8-2.4) L Total Bilirubin 0.8 MG/DL (0.2-1.0) Aspartate Amino Transf (AST/SGOT) 42 U/L (15-37) H Alanine Aminotransferase (ALT/SGPT) 26 U/L (12-78) Alkaline Phosphatase 66 U/L (46-116) C-Reactive Protein, Quantitative 8.8 mg/dL (0.00-0.90) H Total Protein 5.6 G/DL (6.4-8.2) L Albumin 1.9 G/DL (3.4-5.0) L Globulin 3.7 g/dL Albumin/Globulin Ratio 0.5 (1.0-2.7) L Plan Problems: (1) Respiratory distress (2) Respiratory failure Assessment & Plan: 50-year-old female Covid positive respiratory insufficiency intubated on ventilatory support declining. Leukocytosis increase oxygen requirement. Vent settings per pulmonology reviewed identified and agree. Unfortunately further surgical invention at this time is not appropriate as patient is not a candidate and her current condition. Prognosis overall guarded. Tracheostomy can be considered in the future if recovering or shows improvement and requires unable to be weaned from ventilator support. Currently okay for nutritional optimization with NG tube. Will need significant monitoring for decubitus formation given patient's size and condition. Okay for air mattress tolerated. Turn every 2 hours as tolerated. Patient is otherwise critically ill and blood pressure labile. Will need to monitor closely.Bilateral infiltrates are again demonstrated. Stable tube and line positions. (3) Hypoxia (4) Pneumonia due to COVID-19 virus Assessment & Plan: ++ as per pulm and ID (5) Diabetes mellitus out of control Assessment & Plan: DAILY ESTIMATED NEEDS: Needs based on Critical care, obesity 11-14kcal/kg actual body wt (140kg) kcals/kg 5957-3631 total kcals 1.5-2.0g prot/kg IBW (64.5kg) g protein/kg 96-129 g total protein 25-30ml/kg abw (83kg) mL/kg 8400-8769 total fluid mLs NUTRITION DIAGNOSIS: Swallowing difficulty R/T respiratory failure as evidenced by pt orally intubated and sedated, on OGT feeds. CURRENT TF: Vital 1.2 goal of 60ml/hr ENTERAL NUTRITION RECOMMENDATIONS: Vital AF 1.2 @ 60ml/hr x 24 hrs to provide 1440ml, 1728kcal, 108g prot, 1168ml free water * Maintain current critical care and carb controlled TF formula of Vital AF * TF @ goal meeds 100% est kcal/prot needs * HOB over 30 degrees/ water flush per MD TF may be lowered to 55ml/hr for improved BG control while maintaining Kcal and pro needs. ADDITIONAL RECOMMENDATIONS: * Calibrated bedscale wt * Monitor Propofol rate, need for TF adjustment-> now off * Monitor BGs closely : now improved, on novolog q 6rs + NISS * Monitor lytes * Rec bowel regimen- now added Az Devine Jun 19, 2020 16:58
[2020-06-19] MEDS ORDERED: Potassium Phosphate 20 MM in NS 275 ML IV ONE (17:00)
--- NOTE | 2020-06-19 18:43 | NUR ---
INSURANCE CLINICALS AND REVIEWS FAXED TO [facility] T: [phone] EXT [id number] F: [phone]
--- NOTE | 2020-06-19 19:02 | NUR ---
NURSE HAND-OFF REPORT: Latest Vital Signs: Temperature 98.7 , Pulse 91 , B/P 134 /76 , Respiratory Rate 31 , O2 SAT 100 , Mechanical Ventilator, O2 Flow Rate . Vital Sign Comment: [] EKG Rhythm: Sinus Rhythm Rhythm change?: N MD Notified?: - MD Response: Latest Meyers Fall Score: 70 Fall Risk: High Risk Safety Measures: Call light Within Reach, Bed Alarm Zone 1, Side Rails Side Rails x2, Bed position Low and Locked. Fall Precautions: Yellow Socks Report given to RAKEL Rowe. Endorsed plan of care.
--- NOTE | 2020-06-19 19:20 | NUR ---
NURSE NOTES: received report from devika rn pt orally intubated -vent o2 sat 100% no acute resp distress sedated with versed 2mg/hr on dilan soft restraint nan complaint tolerating tube feeding no residual urinary output good reposition and suction iv infusing well rt rt ua picc dressing dry and intact
[2020-06-19] MEDS: Dyna-Hex 2% Top Sol 2oz TOPIC SCH (20:11)
[2020-06-19] MEDS: Miralax 17gm pkt GT SCH (20:52)
--- NOTE | 2020-06-19 22:00 | NUR ---
NURSE NOTES: reposition and suction condition un change
[2020-06-20] VITALS (24 sets, daily range): BP systolic 89–161; BP diastolic 43–89
--- NOTE | 2020-06-20 | NUR ---
NURSE NOTES: bs [id number] insulin coverage given
[2020-06-20] MEDS: NovoLOG Insulin Flexpen SUBQ SCH ×8 (00:03→17:44)
--- NOTE | 2020-06-20 04:00 | NUR ---
NURSE NOTES: versed drip off sedation vacation for weining today complete bed bath done oral care and care bone done
[2020-06-20 05:07] LABS: BASOPHILS % (AUTO) 6.6 % (0.0-2.0); EOSINOPHILS % (AUTO) 8.1 % (0.0-3.0); HEMATOCRIT 30.8 % (37.0-47.0); HEMOGLOBIN 9.4 G/DL (12.0-16.0); LYMPHOCYTES % (AUTO) 20.3 % (20.0-45.0); MEAN CORPUSCULAR VOLUME 95 FL (80-99); MONOCYTES % (AUTO) 8.1 % (1.0-10.0); PLATELET COUNT 198 K/UL (150-450); RED BLOOD COUNT 3.25 M/UL (4.20-5.40); RED CELL DISTRIBUTION WIDTH 15.6 % (11.6-14.8); WHITE BLOOD COUNT 6.4 K/UL (4.8-10.8)
[2020-06-20] MEDS: Piperacillin/Tazobactam 3.375 GM in NS 110 ML IVPB SCH (05:30)
[2020-06-20] MEDS: Midodrine 10mg tab ORAL SCH ×3 (05:31→21:17)
[2020-06-20 05:38] LABS: PHOSPHORUS 2.4 MG/DL (2.5-4.9)
[2020-06-20 05:42] LABS: ALANINE AMINOTRANSFERASE 25 U/L (12-78); ALBUMIN 2.1 G/DL (3.4-5.0); ALBUMIN/GLOBULIN RATIO 0.5 (1.0-2.7); ALKALINE PHOSPHATASE 85 U/L (46-116); ANION GAP 5 mmol/L (5-15); ASPARTATE AMINO TRANSFERASE 44 U/L (15-37); BILIRUBIN,TOTAL 0.9 MG/DL (0.2-1.0); BLOOD UREA NITROGEN 17 mg/dL (7-18); CALCIUM 9.2 MG/DL (8.5-10.1); CARBON DIOXIDE 31 MMOL/L (21-32); CHLORIDE 101 MMOL/L (98-107); CREATININE 0.6 MG/DL (0.55-1.30); POTASSIUM 5.2 MMOL/L (3.5-5.1); SODIUM 137 MMOL/L (136-145)
--- NOTE | 2020-06-20 05:56 | NUR ---
NURSE NOTES: bs [id number] insulin coverage done
--- NOTE | 2020-06-20 06:26 | General Progress Note ---
Subjective ROS Limited/Unobtainable: Yes Allergies: Coded Allergies: No Known Allergies (Unverified , 05/28/20) Subjective events noted interval notes reviewed glucose values are stable intubated but off sedation for weaning today no longer on IVSM Item Value Date Time Bedside Blood Glucose 187 mg/dl H 06/20/20 0532 Bedside Blood Glucose 151 mg/dl H 06/20/20 0004 Bedside Blood Glucose 170 mg/dl H 06/19/20 1800 Bedside Blood Glucose 257 mg/dl H 06/19/20 1200 Bedside Blood Glucose 145 mg/dl H 06/19/20 0656 Bedside Blood Glucose 147 mg/dl H 06/19/20 0000 Objective Last 24 Hour Vital Signs Date Time Temp Pulse Resp B/P (MAP) Pulse Ox O2 Delivery O2 Flow Rate FiO2 06/20/20 05:00 117 36 145/80 (101) 95 06/20/20 04:00 99.5 105 32 147/87 (107) 95 06/20/20 04:00 Mechanical Ventilator Mechanical Ventilator 06/20/20 04:00 100 06/20/20 04:00 86 06/20/20 03:28 104 38 100 06/20/20 03:00 25 Mechanical Ventilator 100 06/20/20 03:00 113 34 161/87 (111) 93 06/20/20 02:00 96 34 132/75 (94) 100 06/20/20 02:00 30 100 06/20/20 01:00 26 Mechanical Ventilator 100 06/20/20 01:00 95 38 144/81 (102) 100 06/20/20 00:00 82 06/20/20 00:00 30 Mechanical Ventilator 100 06/20/20 00:00 100 06/20/20 00:00 Mechanical Ventilator Mechanical Ventilator 06/20/20 00:00 87 35 134/79 (97) 100 06/19/20 23:24 83 34 100 06/19/20 23:00 28 Mechanical Ventilator 100 06/19/20 23:00 92 38 145/82 (103) 99 06/19/20 22:06 28 Mechanical Ventilator 100 06/19/20 22:00 28 Mechanical Ventilator 100 06/19/20 22:00 93 36 143/71 (95) 98 06/19/20 21:00 86 39 133/65 (87) 97 06/19/20 21:00 28 Mechanical Ventilator 100 06/19/20 20:00 98.6 88 31 128/73 (91) 100 06/19/20 20:00 Mechanical Ventilator Mechanical Ventilator 06/19/20 20:00 24 Mechanical Ventilator 100 06/19/20 20:00 100 06/19/20 20:00 86 06/19/20 19:27 92 33 100 06/19/20 19:00 86 29 127/70 (89) 100 06/19/20 19:00 29 Mechanical Ventilator 100 06/19/20 18:00 31 Mechanical Ventilator 100 06/19/20 18:00 91 34 134/76 (95) 100 06/19/20 17:00 86 31 117/69 (85) 100 06/19/20 17:00 30 Mechanical Ventilator 100 06/19/20 16:00 80 06/19/20 16:00 83 30 127/71 (89) 96 06/19/20 16:00 98.7 83 30 127/71 (89) 96 06/19/20 16:00 31 Mechanical Ventilator 100 06/19/20 16:00 Mechanical Ventilator Mechanical Ventilator 06/19/20 16:00 100 06/19/20 15:30 84 34 100 06/19/20 15:00 32 Mechanical Ventilator 100 06/19/20 15:00 80 30 135/81 (99) 96 06/19/20 14:00 91 33 122/67 (85) 98 06/19/20 14:00 34 Mechanical Ventilator 100 06/19/20 13:01 35 Mechanical Ventilator 100 06/19/20 13:00 91 36 119/71 (87) 97 06/19/20 12:30 94 35 111/73 (86) 100 06/19/20 12:00 99 06/19/20 12:00 100.1 98 35 113/56 (75) 100 06/19/20 12:00 Mechanical Ventilator Mechanical Ventilator 06/19/20 12:00 35 Mechanical Ventilator 100 06/19/20 12:00 98 35 113/56 (75) 100 06/19/20 12:00 100 06/19/20 11:45 100.6 06/19/20 11:30 97 34 115/64 (81) 99 06/19/20 11:20 98 33 100 06/19/20 11:00 99 35 117/72 (87) 97 06/19/20 11:00 35 Mechanical Ventilator 100 06/19/20 10:30 98 35 120/67 (84) 98 06/19/20 10:00 35 Mechanical Ventilator 100 06/19/20 10:00 99 35 126/62 (83) 97 06/19/20 09:30 99 34 124/62 (82) 97 06/19/20 09:00 102 34 132/70 (90) 98 06/19/20 09:00 33 Mechanical Ventilator 100 06/19/20 08:30 34 Mechanical Ventilator 100 06/19/20 08:30 105 34 126/78 (94) 97 06/19/20 08:00 100 06/19/20 08:00 98 06/19/20 08:00 Mechanical Ventilator Mechanical Ventilator 06/19/20 08:00 100.7 100 33 139/61 (87) 98 06/19/20 08:00 33 Mechanical Ventilator 100 06/19/20 07:46 104 36 100 06/19/20 07:30 103 35 131/58 (82) 98 06/19/20 07:30 33 Mechanical Ventilator 100 06/19/20 07:00 99 32 133/61 (85) 97 06/19/20 06:30 106 33 113/65 (81) 96 06/19/20 06:30 111 27 Intake and Output 06/19/20 06/20/20 19:00 07:00 Intake Total 1952.2952 ml 1532.832 ml Output Total 1000 ml 930 ml Balance 952.2952 ml 602.832 ml Free Water 150 ml 150 ml IV Total 1082.2952 ml 782.832 ml Tube Feeding 720 ml 600 ml Output Urine Total 900 ml 930 ml Stool Total 100 ml Laboratory Tests 06/20/20 03:15: White Blood Count 6.4, Red Blood Count 3.25L, Hemoglobin 9.4L, Hematocrit 30.8L, Mean Corpuscular Volume 95, Mean Corpuscular Hemoglobin 29.0, Mean Corpuscular Hemoglobin Concent 30.6L, Red Cell Distribution Width 15.6H, Platelet Count 198, Mean Platelet Volume 7.1, Neutrophils (%) (Auto) 57.0, Lymphocytes (%) (Auto) 20.3, Monocytes (%) (Auto) 8.1, Eosinophils (%) (Auto) 8.1H, Basophils (%) (Auto) 6.6H, Sodium Level 137, Potassium Level 5.2H, Chloride Level 101, Carbon Dioxide Level 31, Anion Gap 5, Blood Urea Nitrogen 17, Creatinine 0.6, Estimat Glomerular Filtration Rate > 60, Glucose Level 167H, Calcium Level 9.2, Phosphorus Level 2.4L, Magnesium Level 1.5L, Total Bilirubin 0.9, Aspartate Amino Transf (AST/SGOT) 44H, Alanine Aminotransferase (ALT/SGPT) 25, Alkaline Phosphatase 85, C-Reactive Protein, Quantitative 8.5H, Pro-B-Type Natriuretic Peptide 1249H, Total Protein 6.7, Albumin 2.1L, Globulin 4.6, Albumin/Globulin Ratio 0.5L 06/20/20 04:26: POC Whole Blood Glucose [Pending] Height (Feet): 5 Height (Inches): 5.00 Weight (Pounds): 308 General Appearance: other - intubated EENT: other - ETT Cardiovascular: normal rate Respiratory/Chest: decreased breath sounds Abdomen: normal bowel sounds Objective Current Medications Medications (Trade) Dose Ordered Sig/Zelda Route PRN Reason Start Time Stop Time Status Last Admin Dose Admin Acetaminophen (Tylenol) 650 mg Q4H PRN NG Temp >100.5 05/31/20 21:45 06/30/20 21:44 06/19/20 11:15 Acetaminophen (Tylenol) 650 mg Q6H PRN NG Mild Pain (Pain Scale 1-3) 06/06/20 18:00 07/06/20 17:59 06/13/20 23:10 Chlorhexidine Gluconate (Inna-Hex 2%) 1 applic DAILY@2000 TOPIC 05/30/20 20:00 08/28/20 19:59 06/19/20 20:11 Dextrose (Dextrose 50%) 25 ml Q30M PRN IV Hypoglycemia 06/05/20 10:45 09/03/20 10:44 Dextrose (Dextrose 50%) 50 ml Q30M PRN IV Hypoglycemia 06/05/20 10:45 09/03/20 10:44 Docusate Sodium (Colace) 100 mg Q12HR GT 06/07/20 21:00 07/07/20 20:59 06/19/20 20:51 Enoxaparin Sodium (Lovenox) 40 mg DAILY SUBQ 05/30/20 10:00 08/28/20 09:59 06/19/20 08:13 Fentanyl Citrate 250 ml @ 1 mls/hr Q24H IV 06/18/20 08:00 06/20/20 07:59 Insulin Aspart (NovoLOG) EVERY 6 HOURS SUBQ 06/07/20 00:00 09/03/20 11:59 06/20/20 05:32 Insulin Aspart (NovoLOG) 18 units EVERY 6 HOURS SUBQ 06/18/20 12:00 09/04/20 08:59 06/20/20 05:32 Midazolam HCl 100 mg/Dextrose 200 ml @ 0 mls/hr Q24H PRN IV sedation 06/19/20 11:46 06/21/20 11:45 06/19/20 13:01 Midodrine (Pro-Amatine) 10 mg Q8HR ORAL 06/14/20 14:00 09/12/20 13:59 06/20/20 05:31 Pantoprazole (Protonix) 40 mg Q12HR IVP 06/13/20 21:00 07/03/20 08:59 06/19/20 20:53 Piperacillin Sod/ Tazobactam Sod 3.375 gm/Sodium Chloride 110 ml @ 27.5 mls/hr Q8HR IVPB 06/14/20 22:00 06/21/20 21:59 06/20/20 05:30 Polyethylene Glycol (Miralax) 17 gm BEDTIME GT 06/07/20 21:00 07/07/20 20:59 06/17/20 21:02 Sodium Chloride 1,000 ml @ 50 mls/hr Q20H IV 06/06/20 08:00 07/06/20 07:59 06/19/20 14:01 Assessment/Plan Problem List: (1) Diabetes mellitus out of control ICD Codes: E11.65 - Type 2 diabetes mellitus with hyperglycemia SNOMED: 51842418, 767426180 (2) Pneumonia due to COVID-19 virus ICD Codes: U07.1 - COVID-19; J12.82 - Pneumonia due to coronavirus disease 2019 SNOMED: 728128045003146230 (3) Respiratory distress ICD Codes: R06.03 - Acute respiratory distress; J12.82 - Pneumonia due to coronavirus disease 2019 SNOMED: 381427382 Status: unchanged Assessment/Plan: lower insulin requirement expected since no longer on IVSM reduce Novolog 18 to 12 units every 6 hours continue Novolog sliding scale every 6 hours Huber Adame MD Jun 20, 2020 06:26
--- NOTE | 2020-06-20 06:43 | Hematology/Onc Progress Note ---
Assessment/Plan Assessment/Plan # Thrombocytopenia is due to infection/underlying covid19+++ --> ABX ceftriaxone -->zosyn --> on steriods likely cause of initial wbc --> per pulm --> plt 107->156-->192-->205 --> smear reviewed # Anemia due to chronic disease --> hgb goal is >7 --> transfuse prn --> ferritin is >1000 --> hold off on iron --> 10-->9.8->9-->8-->8.2-->9.4 # Elevated ddimer due to covid19++ --> duplex legs is negative --> underlying covid rx # Hypoxia -> due to covid19 # Hypoxemia --> rx same as above # Respiratory failure --> on vent --> per pulm # Pneumonia due to COVID-19 virus --> per pulm rx -> sp remdesivir # Diabetes mellitus out of control --> hgb a1c goal <7 # Poor prognosis # Dvt ppx lovenox sq Appreciate consultation and bowen RN Subjective Allergies: Coded Allergies: No Known Allergies (Unverified , 05/28/20) All Systems: reviewed and negative except above Subjective 06/10 nv, on vent, with ogt, on fentanyl and versed, plt stable 06/11 nv, vent adjusted is on ogt, meds reviewed 06/12 nv, vent, meds noted, labs noted, no bleeding, hgb 10.4 06/13 nv, is on vent, meds reviewed, no bleeding, cbc reviewed 06/14 nv, on vent, tachy, labs reviewed, gross hematuria, febrile overnight, abx 06/17 nv, on vent, labs noted, no major changes, feeling better overnight 06/18 nv, meds reviewed, labs noted, no major events, hgb 8.6 06/19 nv, remains intubated, with fluids, labs reviewed, meds noted 06/20 nv, intubated remains on restraints, meds noted as well, as labs Objective Objective Current Medications Medications (Trade) Dose Ordered Sig/Zelda Route PRN Reason Start Time Stop Time Status Last Admin Dose Admin Acetaminophen (Tylenol) 650 mg Q4H PRN NG Temp >100.5 05/31/20 21:45 06/30/20 21:44 06/19/20 11:15 Acetaminophen (Tylenol) 650 mg Q6H PRN NG Mild Pain (Pain Scale 1-3) 06/06/20 18:00 07/06/20 17:59 06/13/20 23:10 Chlorhexidine Gluconate (Inna-Hex 2%) 1 applic DAILY@2000 TOPIC 05/30/20 20:00 08/28/20 19:59 06/19/20 20:11 Dextrose (Dextrose 50%) 25 ml Q30M PRN IV Hypoglycemia 06/05/20 10:45 09/03/20 10:44 Dextrose (Dextrose 50%) 50 ml Q30M PRN IV Hypoglycemia 06/05/20 10:45 09/03/20 10:44 Docusate Sodium (Colace) 100 mg Q12HR GT 06/07/20 21:00 07/07/20 20:59 06/19/20 20:51 Enoxaparin Sodium (Lovenox) 40 mg DAILY SUBQ 05/30/20 10:00 08/28/20 09:59 06/19/20 08:13 Fentanyl Citrate 250 ml @ 1 mls/hr Q24H IV 06/18/20 08:00 06/20/20 07:59 Insulin Aspart (NovoLOG) EVERY 6 HOURS SUBQ 06/07/20 00:00 09/03/20 11:59 06/20/20 05:32 Insulin Aspart (NovoLOG) 12 units EVERY 6 HOURS SUBQ 06/20/20 12:00 09/04/20 08:59 Midazolam HCl 100 mg/Dextrose 200 ml @ 0 mls/hr Q24H PRN IV sedation 06/19/20 11:46 06/21/20 11:45 06/19/20 13:01 Midodrine (Pro-Amatine) 10 mg Q8HR ORAL 06/14/20 14:00 09/12/20 13:59 06/20/20 05:31 Pantoprazole (Protonix) 40 mg Q12HR IVP 06/13/20 21:00 07/03/20 08:59 06/19/20 20:53 Piperacillin Sod/ Tazobactam Sod 3.375 gm/Sodium Chloride 110 ml @ 27.5 mls/hr Q8HR IVPB 06/14/20 22:00 06/21/20 21:59 06/20/20 05:30 Polyethylene Glycol (Miralax) 17 gm BEDTIME GT 06/07/20 21:00 07/07/20 20:59 06/17/20 21:02 Sodium Chloride 1,000 ml @ 50 mls/hr Q20H IV 06/06/20 08:00 07/06/20 07:59 06/19/20 14:01 Last 24 Hour Vital Signs Date Time Temp Pulse Resp B/P (MAP) Pulse Ox O2 Delivery O2 Flow Rate FiO2 06/20/20 05:00 117 36 145/80 (101) 95 06/20/20 04:00 99.5 105 32 147/87 (107) 95 06/20/20 04:00 Mechanical Ventilator Mechanical Ventilator 06/20/20 04:00 100 06/20/20 04:00 86 06/20/20 03:28 104 38 100 06/20/20 03:00 25 Mechanical Ventilator 100 06/20/20 03:00 113 34 161/87 (111) 93 06/20/20 02:00 96 34 132/75 (94) 100 06/20/20 02:00 30 100 06/20/20 01:00 26 Mechanical Ventilator 100 06/20/20 01:00 95 38 144/81 (102) 100 06/20/20 00:00 82 06/20/20 00:00 30 Mechanical Ventilator 100 06/20/20 00:00 100 06/20/20 00:00 Mechanical Ventilator Mechanical Ventilator 06/20/20 00:00 87 35 134/79 (97) 100 06/19/20 23:24 83 34 100 06/19/20 23:00 28 Mechanical Ventilator 100 06/19/20 23:00 92 38 145/82 (103) 99 06/19/20 22:06 28 Mechanical Ventilator 100 06/19/20 22:00 28 Mechanical Ventilator 100 06/19/20 22:00 93 36 143/71 (95) 98 06/19/20 21:00 86 39 133/65 (87) 97 06/19/20 21:00 28 Mechanical Ventilator 100 06/19/20 20:00 98.6 88 31 128/73 (91) 100 06/19/20 20:00 Mechanical Ventilator Mechanical Ventilator 06/19/20 20:00 24 Mechanical Ventilator 100 06/19/20 20:00 100 06/19/20 20:00 86 06/19/20 19:27 92 33 100 06/19/20 19:00 86 29 127/70 (89) 100 06/19/20 19:00 29 Mechanical Ventilator 100 06/19/20 18:00 31 Mechanical Ventilator 100 06/19/20 18:00 91 34 134/76 (95) 100 06/19/20 17:00 86 31 117/69 (85) 100 06/19/20 17:00 30 Mechanical Ventilator 100 06/19/20 16:00 80 06/19/20 16:00 83 30 127/71 (89) 96 06/19/20 16:00 98.7 83 30 127/71 (89) 96 06/19/20 16:00 31 Mechanical Ventilator 100 06/19/20 16:00 Mechanical Ventilator Mechanical Ventilator 06/19/20 16:00 100 06/19/20 15:30 84 34 100 06/19/20 15:00 32 Mechanical Ventilator 100 06/19/20 15:00 80 30 135/81 (99) 96 06/19/20 14:00 91 33 122/67 (85) 98 06/19/20 14:00 34 Mechanical Ventilator 100 06/19/20 13:01 35 Mechanical Ventilator 100 06/19/20 13:00 91 36 119/71 (87) 97 06/19/20 12:30 94 35 111/73 (86) 100 06/19/20 12:00 99 06/19/20 12:00 100.1 98 35 113/56 (75) 100 06/19/20 12:00 Mechanical Ventilator Mechanical Ventilator 06/19/20 12:00 35 Mechanical Ventilator 100 06/19/20 12:00 98 35 113/56 (75) 100 06/19/20 12:00 100 06/19/20 11:45 100.6 06/19/20 11:30 97 34 115/64 (81) 99 06/19/20 11:20 98 33 100 06/19/20 11:00 99 35 117/72 (87) 97 06/19/20 11:00 35 Mechanical Ventilator 100 06/19/20 10:30 98 35 120/67 (84) 98 06/19/20 10:00 35 Mechanical Ventilator 100 06/19/20 10:00 99 35 126/62 (83) 97 06/19/20 09:30 99 34 124/62 (82) 97 06/19/20 09:00 102 34 132/70 (90) 98 06/19/20 09:00 33 Mechanical Ventilator 100 06/19/20 08:30 34 Mechanical Ventilator 100 06/19/20 08:30 105 34 126/78 (94) 97 06/19/20 08:00 100 06/19/20 08:00 98 06/19/20 08:00 Mechanical Ventilator Mechanical Ventilator 06/19/20 08:00 100.7 100 33 139/61 (87) 98 06/19/20 08:00 33 Mechanical Ventilator 100 06/19/20 07:46 104 36 100 06/19/20 07:30 103 35 131/58 (82) 98 06/19/20 07:30 33 Mechanical Ventilator 100 06/19/20 07:00 99 32 133/61 (85) 97 06/19/20 06:30 106 33 113/65 (81) 96 06/19/20 06:30 111 27 06/19/20 06:00 100.7 111 31 110/58 (75) 97 06/19/20 05:30 108 32 105/60 (75) 96 06/19/20 05:00 102 25 115/61 (79) 98 06/19/20 04:30 104 28 96/51 (66) 97 06/19/20 04:00 99 06/19/20 04:00 100.0 102 27 100/49 (66) 97 06/19/20 04:00 25 Mechanical Ventilator 100 06/19/20 04:00 Mechanical Ventilator Mechanical Ventilator 06/19/20 04:00 100 06/19/20 03:40 96 25 100 06/19/20 03:30 103 29 113/58 (76) 98 06/19/20 03:29 28 Mechanical Ventilator 100 06/19/20 03:00 100 28 148/115 (126) 96 06/19/20 02:30 108 32 124/62 (82) 95 06/19/20 02:29 28 Mechanical Ventilator 100 06/19/20 02:00 102 31 136/66 (89) 94 06/19/20 01:30 100 36 140/71 (94) 94 06/19/20 01:29 28 Mechanical Ventilator 100 06/19/20 01:00 89 23 133/67 (89) 97 06/19/20 00:30 99 28 120/43 (68) 88 06/19/20 00:29 28 Mechanical Ventilator 100 06/19/20 00:00 Mechanical Ventilator Mechanical Ventilator 06/19/20 00:00 100 06/19/20 00:00 94 06/19/20 00:00 99.2 85 27 117/63 (81) 96 06/18/20 23:40 84 25 100 06/18/20 23:40 97 34 100 06/18/20 23:30 83 23 115/69 (84) 98 06/18/20 23:29 25 Mechanical Ventilator 100 06/18/20 23:00 94 27 107/66 (80) 99 06/18/20 22:30 111 35 133/78 (96) 99 06/18/20 22:29 30 Mechanical Ventilator 100 06/18/20 22:00 96 31 106/76 (86) 98 06/18/20 21:30 95 32 106/62 (77) 99 06/18/20 21:29 30 Mechanical Ventilator 100 06/18/20 21:07 25 Mechanical Ventilator 100 06/18/20 21:00 97 28 102/63 (76) 99 06/18/20 20:30 89 29 107/68 (81) 99 06/18/20 20:29 31 Mechanical Ventilator 100 06/18/20 20:00 99.2 90 30 114/62 (79) 98 06/18/20 20:00 Mechanical Ventilator Mechanical Ventilator 06/18/20 20:00 95 06/18/20 20:00 100 06/18/20 19:30 89 24 105/60 (75) 99 06/18/20 19:29 26 Mechanical Ventilator 100 06/18/20 19:00 85 23 99/65 (76) 99 06/18/20 18:00 97 26 109/71 (84) 100 06/18/20 17:29 Mechanical Ventilator 06/18/20 17:15 95 23 96/51 (66) 99 06/18/20 17:02 96 23 88/52 (64) 99 06/18/20 17:00 94 22 89/55 (66) 99 06/18/20 16:29 Mechanical Ventilator 06/18/20 16:15 89 24 90/51 (64) 100 06/18/20 16:00 100 06/18/20 16:00 Mechanical Ventilator Mechanical Ventilator 06/18/20 16:00 98.8 90 25 91/50 (64) 100 06/18/20 16:00 96 06/18/20 15:48 95 25 100 06/18/20 15:29 Mechanical Ventilator 06/18/20 14:29 Mechanical Ventilator 06/18/20 14:00 94 21 96/73 (81) 100 06/18/20 13:29 Mechanical Ventilator 06/18/20 13:00 99 21 115/76 (89) 100 06/18/20 12:45 99 22 125/73 (90) 99 06/18/20 12:30 99 24 124/71 (88) 100 06/18/20 12:29 Mechanical Ventilator 06/18/20 12:15 102 20 134/82 (99) 99 06/18/20 12:09 Mechanical Ventilator 06/18/20 12:00 Mechanical Ventilator Mechanical Ventilator 06/18/20 12:00 100 06/18/20 12:00 112 06/18/20 12:00 98.3 105 23 126/80 (95) 100 06/18/20 11:29 123 35 100 06/18/20 11:29 Mechanical Ventilator 06/18/20 11:00 128 33 127/90 (102) 90 06/18/20 11:00 100 06/18/20 10:53 127 35 132/81 (98) 87 06/18/20 10:29 Mechanical Ventilator 06/18/20 10:00 108 28 134/75 (94) 97 06/18/20 09:26 23 Mechanical Ventilator 06/18/20 09:00 114 32 140/76 (97) 89 06/18/20 08:30 119 30 139/80 (99) 90 06/18/20 08:22 80 06/18/20 08:19 80 06/18/20 08:00 100 06/18/20 08:00 98.8 109 28 123/100 (108) 97 06/18/20 08:00 110 06/18/20 08:00 Mechanical Ventilator Mechanical Ventilator 06/18/20 07:00 112 18 138/65 (89) 100 06/18/20 06:45 100 28 100 Intake and Output 06/19/20 06/20/20 19:00 07:00 Intake Total 1952.2952 ml 1532.832 ml Output Total 1000 ml 930 ml Balance 952.2952 ml 602.832 ml Free Water 150 ml 150 ml IV Total 1082.2952 ml 782.832 ml Tube Feeding 720 ml 600 ml Output Urine Total 900 ml 930 ml Stool Total 100 ml Labs Test 06/17/20 12:20 06/17/20 17:02 06/17/20 23:33 06/18/20 03:07 POC Whole Blood Glucose 136 MG/DL (74-106) 97 MG/DL (74-106) Test 06/18/20 04:00 06/18/20 23:48 06/19/20 03:35 06/20/20 03:15 White Blood Count 10.5 K/UL (4.8-10.8) 10.3 K/UL (4.8-10.8) 6.4 K/UL (4.8-10.8) Red Blood Count 2.95 M/UL (4.20-5.40) 2.82 M/UL (4.20-5.40) 3.25 M/UL (4.20-5.40) Hemoglobin 8.6 G/DL (12.0-16.0) 8.2 G/DL (12.0-16.0) 9.4 G/DL (12.0-16.0) Hematocrit 27.1 % (37.0-47.0) 25.7 % (37.0-47.0) 30.8 % (37.0-47.0) Mean Corpuscular Volume 92 FL (80-99) 91 FL (80-99) 95 FL (80-99) Mean Corpuscular Hemoglobin 29.2 PG (27.0-31.0) 29.2 PG (27.0-31.0) 29.0 PG (27.0-31.0) Mean Corpuscular Hemoglobin Concent 31.9 G/DL (32.0-36.0) 32.0 G/DL (32.0-36.0) 30.6 G/DL (32.0-36.0) Red Cell Distribution Width 15.6 % (11.6-14.8) 15.9 % (11.6-14.8) 15.6 % (11.6-14.8) Platelet Count 231 K/UL (150-450) 228 K/UL (150-450) 198 K/UL (150-450) Mean Platelet Volume 8.7 FL (6.5-10.1) 7.9 FL (6.5-10.1) 7.1 FL (6.5-10.1) Neutrophils (%) (Auto) 73.5 % (45.0-75.0) 79.0 % (45.0-75.0) 57.0 % (45.0-75.0) Lymphocytes (%) (Auto) 16.7 % (20.0-45.0) 12.9 % (20.0-45.0) 20.3 % (20.0-45.0) Monocytes (%) (Auto) 1.4 % (1.0-10.0) 1.9 % (1.0-10.0) 8.1 % (1.0-10.0) Eosinophils (%) (Auto) 8.1 % (0.0-3.0) 5.5 % (0.0-3.0) 8.1 % (0.0-3.0) Basophils (%) (Auto) 0.3 % (0.0-2.0) 0.6 % (0.0-2.0) 6.6 % (0.0-2.0) Sodium Level 142 MMOL/L (136-145) 142 MMOL/L (136-145) 137 MMOL/L (136-145) Potassium Level 3.9 MMOL/L (3.5-5.1) 3.9 MMOL/L (3.5-5.1) 5.2 MMOL/L (3.5-5.1) Chloride Level 107 MMOL/L (98-107) 105 MMOL/L (98-107) 101 MMOL/L (98-107) Carbon Dioxide Level 32 MMOL/L (21-32) 33 MMOL/L (21-32) 31 MMOL/L (21-32) Anion Gap 3 mmol/L (5-15) 4 mmol/L (5-15) 5 mmol/L (5-15) Blood Urea Nitrogen 25 mg/dL (7-18) 21 mg/dL (7-18) 17 mg/dL (7-18) Creatinine 0.7 MG/DL (0.55-1.30) 0.6 MG/DL (0.55-1.30) 0.6 MG/DL (0.55-1.30) Estimat Glomerular Filtration Rate > 60 mL/min (>60) > 60 mL/min (>60) > 60 mL/min (>60) Glucose Level 96 MG/DL (74-106) 124 MG/DL (74-106) 167 MG/DL (74-106) Calcium Level 8.6 MG/DL (8.5-10.1) 8.6 MG/DL (8.5-10.1) 9.2 MG/DL (8.5-10.1) POC Whole Blood Glucose 147 MG/DL (74-106) Uric Acid 0.9 MG/DL (2.6-7.2) Phosphorus Level 2.3 MG/DL (2.5-4.9) 2.4 MG/DL (2.5-4.9) Magnesium Level 1.6 MG/DL (1.8-2.4) 1.5 MG/DL (1.8-2.4) Total Bilirubin 0.8 MG/DL (0.2-1.0) 0.9 MG/DL (0.2-1.0) Aspartate Amino Transf (AST/SGOT) 42 U/L (15-37) 44 U/L (15-37) Alanine Aminotransferase (ALT/SGPT) 26 U/L (12-78) 25 U/L (12-78) Alkaline Phosphatase 66 U/L (46-116) 85 U/L (46-116) C-Reactive Protein, Quantitative 8.8 mg/dL (0.00-0.90) 8.5 mg/dL (0.00-0.90) Total Protein 5.6 G/DL (6.4-8.2) 6.7 G/DL (6.4-8.2) Albumin 1.9 G/DL (3.4-5.0) 2.1 G/DL (3.4-5.0) Globulin 3.7 g/dL 4.6 g/dL Albumin/Globulin Ratio 0.5 (1.0-2.7) 0.5 (1.0-2.7) Pro-B-Type Natriuretic Peptide 1249 pg/mL (0-125) Test 1/28/21 04:26 Height (Feet): 5 Height (Inches): 5.00 Weight (Pounds): 308 Objective GeNL: nv Pulm: vent++ CV: rrr Abd: soft, nt, nd Ext: no cce Myron Condon MD Jun 20, 2020 06:43
--- NOTE | 2020-06-20 07:08 | NUR ---
RESPIRATORY NOTE: PT received on AC/VC: 15, 600, 100%, +5. Alarms are on and audible. Vent circuit is secure and out of the way. Airway is secure and patent. Bilateral soft restrains securely in place. No s/s of respiratory distress noted at this time. Will continue to closely monitor.
--- NOTE | 2020-06-20 07:20 | NUR ---
NURSE NOTES: RECEIVED REPORT FROM [employer]. RECEIVED PT ON ISOLATION ROOM,DROPLET PRECAUTION POSITIVE COVID -19.PT IS FULL CODE STATUS .PT LETHARGIC NON-RESPONSIVE TO VERBAL AND TACTILE STIMULI .PT ORALLY INTUBATED ET-TUBE SZ # 7 ,23CM ON MID [place],WELL SECURED CONNECTED TO A VENTILATOR AND TOLERATING WELL CURRENTS VENT SETTINGS AC 15,TV 600,PEEP 5 ,FIO2 100%, O2 SAT 84 10 89%.M.D ORDER WEANING PROTOCOL. AMANDA RT STAFF STATING THAT PT IS UNABLE TO TOLERATED WEANING FROM VENT AT THIS TIME. PT RECEIVING FIO2 100% ,o2 sat IS LOW 84 TO 89% FIO2. PT IS OFF VERSED AND FENTANYL DRIP PER M.D ORDERS.PT WITH NGT PATENT RESIDUAL 120ML NOTED. HELD NGT FEEDING AT THIS TIME. 102.9,MEDICATED WITH TYLENOL 650MG VIA NGT AND APPLIED COOLING MEASURES. PT WITH RECTAL TUBE DRAINING BROWNISH DIARRHEA COLOR.FULL BODY ASSESSMENT DONE. PT REPOSITIONED IN BED TO PROVIDE COMFORT AND TO PREVENT SKIN BREAK DOWN . WILL CONT TO MONITOR
--- NOTE | 2020-06-20 08:00 | NUR ---
NURSE HAND-OFF REPORT: Latest Vital Signs: Temperature 99.5 , Pulse 128 , B/P 147 /89 , Respiratory Rate 35 , O2 SAT 0 , Mechanical Ventilator, O2 Flow Rate . Vital Sign Comment: EKG Rhythm: Sinus Tachycardia Rhythm change?: N MD Notified?: - MD Response: Latest Meyers Fall Score: 70 Fall Risk: High Risk Safety Measures: Call light Within Reach, Bed Alarm Zone 1, Side Rails Side Rails x2, Bed position Low and Locked. Fall Precautions: Yellow Socks Report given to chetan rn using sbar.
--- NOTE | 2020-06-20 08:24 | Infectious Diseases Prog Note ---
Assessment/Plan Assessment/Plan A 1. COVID19 pneumonia 2. Hypoxic respiratory failure 3. Morbid obesity 4. DM type with hyperglycemia 5. Thrombocytopenia 6. leukocytosis resolved 7. Serratia pneumonia 8. Anemia P 1. Finished remdesivir course 2. continue Solumedrol tapering 3. Discontinue Zosyn Subjective ROS Limited/Unobtainable: Yes Neurologic: Reports: other - sedated on restraint Allergies: Coded Allergies: No Known Allergies (Unverified , 05/28/20) Objective Last 24 Hour Vital Signs Date Time Temp Pulse Resp B/P (MAP) Pulse Ox O2 Delivery O2 Flow Rate FiO2 06/20/20 07:00 128 35 147/89 (108) 06/20/20 06:00 110 27 06/20/20 06:00 123 38 139/84 (102) 0 06/20/20 05:00 117 36 145/80 (101) 95 06/20/20 04:00 99.5 105 32 147/87 (107) 95 06/20/20 04:00 Mechanical Ventilator Mechanical Ventilator 06/20/20 04:00 100 06/20/20 04:00 86 06/20/20 03:28 104 38 100 06/20/20 03:00 25 Mechanical Ventilator 100 06/20/20 03:00 113 34 161/87 (111) 93 06/20/20 02:00 96 34 132/75 (94) 100 06/20/20 02:00 30 100 06/20/20 01:00 26 Mechanical Ventilator 100 06/20/20 01:00 95 38 144/81 (102) 100 06/20/20 00:00 82 06/20/20 00:00 30 Mechanical Ventilator 100 06/20/20 00:00 100 06/20/20 00:00 Mechanical Ventilator Mechanical Ventilator 06/20/20 00:00 87 35 134/79 (97) 100 06/19/20 23:24 83 34 100 06/19/20 23:00 28 Mechanical Ventilator 100 06/19/20 23:00 92 38 145/82 (103) 99 06/19/20 22:06 28 Mechanical Ventilator 100 06/19/20 22:00 28 Mechanical Ventilator 100 06/19/20 22:00 93 36 143/71 (95) 98 06/19/20 21:00 86 39 133/65 (87) 97 06/19/20 21:00 28 Mechanical Ventilator 100 06/19/20 20:00 98.6 88 31 128/73 (91) 100 06/19/20 20:00 Mechanical Ventilator Mechanical Ventilator 06/19/20 20:00 24 Mechanical Ventilator 100 06/19/20 20:00 100 06/19/20 20:00 86 06/19/20 19:27 92 33 100 06/19/20 19:00 86 29 127/70 (89) 100 06/19/20 19:00 29 Mechanical Ventilator 100 06/19/20 18:00 31 Mechanical Ventilator 100 06/19/20 18:00 91 34 134/76 (95) 100 06/19/20 17:00 86 31 117/69 (85) 100 06/19/20 17:00 30 Mechanical Ventilator 100 06/19/20 16:00 80 06/19/20 16:00 83 30 127/71 (89) 96 06/19/20 16:00 98.7 83 30 127/71 (89) 96 06/19/20 16:00 31 Mechanical Ventilator 100 06/19/20 16:00 Mechanical Ventilator Mechanical Ventilator 06/19/20 16:00 100 06/19/20 15:30 84 34 100 06/19/20 15:00 32 Mechanical Ventilator 100 06/19/20 15:00 80 30 135/81 (99) 96 06/19/20 14:00 91 33 122/67 (85) 98 06/19/20 14:00 34 Mechanical Ventilator 100 06/19/20 13:01 35 Mechanical Ventilator 100 06/19/20 13:00 91 36 119/71 (87) 97 06/19/20 12:30 94 35 111/73 (86) 100 06/19/20 12:00 99 06/19/20 12:00 100.1 98 35 113/56 (75) 100 06/19/20 12:00 Mechanical Ventilator Mechanical Ventilator 06/19/20 12:00 35 Mechanical Ventilator 100 06/19/20 12:00 98 35 113/56 (75) 100 06/19/20 12:00 100 06/19/20 11:45 100.6 06/19/20 11:30 97 34 115/64 (81) 99 06/19/20 11:20 98 33 100 06/19/20 11:00 99 35 117/72 (87) 97 06/19/20 11:00 35 Mechanical Ventilator 100 1/27/21 10:30 98 35 120/67 (84) 98 06/19/20 10:00 35 Mechanical Ventilator 100 06/19/20 10:00 99 35 126/62 (83) 97 06/19/20 09:30 99 34 124/62 (82) 97 06/19/20 09:00 102 34 132/70 (90) 98 06/19/20 09:00 33 Mechanical Ventilator 100 06/19/20 08:30 34 Mechanical Ventilator 100 06/19/20 08:30 105 34 126/78 (94) 97 Height (Feet): 5 Height (Inches): 5.00 Weight (Pounds): 308 HEENT: status post trach Respiratory/Chest: respiratory distress, other - on mechanical ventilator, KKI5=531% Cardiovascular: tachycardia, other - R PICC line Abdomen: soft, non tender, other - Tube feeding Laboratory Tests Test 06/20/20 03:15 06/20/20 04:26 White Blood Count 6.4 K/UL (4.8-10.8) Red Blood Count 3.25 M/UL (4.20-5.40) L Hemoglobin 9.4 G/DL (12.0-16.0) L Hematocrit 30.8 % (37.0-47.0) L Mean Corpuscular Volume 95 FL (80-99) Mean Corpuscular Hemoglobin 29.0 PG (27.0-31.0) Mean Corpuscular Hemoglobin Concent 30.6 G/DL (32.0-36.0) L Red Cell Distribution Width 15.6 % (11.6-14.8) H Platelet Count 198 K/UL (150-450) Mean Platelet Volume 7.1 FL (6.5-10.1) Neutrophils (%) (Auto) 57.0 % (45.0-75.0) Lymphocytes (%) (Auto) 20.3 % (20.0-45.0) Monocytes (%) (Auto) 8.1 % (1.0-10.0) Eosinophils (%) (Auto) 8.1 % (0.0-3.0) H Basophils (%) (Auto) 6.6 % (0.0-2.0) H Sodium Level 137 MMOL/L (136-145) Potassium Level 5.2 MMOL/L (3.5-5.1) H Chloride Level 101 MMOL/L (98-107) Carbon Dioxide Level 31 MMOL/L (21-32) Anion Gap 5 mmol/L (5-15) Blood Urea Nitrogen 17 mg/dL (7-18) Creatinine 0.6 MG/DL (0.55-1.30) Estimat Glomerular Filtration Rate > 60 mL/min (>60) Glucose Level 167 MG/DL (74-106) H Calcium Level 9.2 MG/DL (8.5-10.1) Phosphorus Level 2.4 MG/DL (2.5-4.9) L Magnesium Level 1.5 MG/DL (1.8-2.4) L Total Bilirubin 0.9 MG/DL (0.2-1.0) Aspartate Amino Transf (AST/SGOT) 44 U/L (15-37) H Alanine Aminotransferase (ALT/SGPT) 25 U/L (12-78) Alkaline Phosphatase 85 U/L (46-116) C-Reactive Protein, Quantitative 8.5 mg/dL (0.00-0.90) H Pro-B-Type Natriuretic Peptide 1249 pg/mL (0-125) H Total Protein 6.7 G/DL (6.4-8.2) Albumin 2.1 G/DL (3.4-5.0) L Globulin 4.6 g/dL Albumin/Globulin Ratio 0.5 (1.0-2.7) L POC Whole Blood Glucose Pending Current Medications Medications (Trade) Dose Ordered Sig/Zelda Route PRN Reason Start Time Stop Time Status Last Admin Dose Admin Acetaminophen (Tylenol) 650 mg Q4H PRN NG Temp >100.5 05/31/20 21:45 06/30/20 21:44 06/19/20 11:15 Acetaminophen (Tylenol) 650 mg Q6H PRN NG Mild Pain (Pain Scale 1-3) 06/06/20 18:00 07/06/20 17:59 06/13/20 23:10 Chlorhexidine Gluconate (Inna-Hex 2%) 1 applic DAILY@1999 TOPIC 05/30/20 20:00 08/28/20 19:59 06/19/20 20:11 Dextrose (Dextrose 50%) 25 ml Q30M PRN IV Hypoglycemia 06/05/20 10:45 09/03/20 10:44 Dextrose (Dextrose 50%) 50 ml Q30M PRN IV Hypoglycemia 06/05/20 10:45 09/03/20 10:44 Docusate Sodium (Colace) 100 mg Q12HR GT 06/07/20 21:00 07/07/20 20:59 06/19/20 20:51 Enoxaparin Sodium (Lovenox) 40 mg DAILY SUBQ 05/30/20 10:00 08/28/20 09:59 06/19/20 08:13 Insulin Aspart (NovoLOG) EVERY 6 HOURS SUBQ 06/07/20 00:00 09/03/20 11:59 06/20/20 05:32 Insulin Aspart (NovoLOG) 12 units EVERY 6 HOURS SUBQ 06/20/20 12:00 09/04/20 08:59 Midazolam HCl 100 mg/Dextrose 200 ml @ 0 mls/hr Q24H PRN IV sedation 06/19/20 11:46 06/21/20 11:45 06/19/20 13:01 Midodrine (Pro-Amatine) 10 mg Q8HR ORAL 06/14/20 14:00 09/12/20 13:59 06/20/20 05:31 Pantoprazole (Protonix) 40 mg Q12HR IVP 06/13/20 21:00 07/03/20 08:59 06/19/20 20:53 Piperacillin Sod/ Tazobactam Sod 3.375 gm/Sodium Chloride 110 ml @ 27.5 mls/hr Q8HR IVPB 06/14/20 22:00 06/21/20 21:59 06/20/20 05:30 Polyethylene Glycol (Miralax) 17 gm BEDTIME GT 06/07/20 21:00 07/07/20 20:59 06/17/20 21:02 Sodium Chloride 1,000 ml @ 50 mls/hr Q20H IV 06/06/20 08:00 07/06/20 07:59 06/19/20 14:01 Colt Arana MD Jun 20, 2020 08:24
--- NOTE | 2020-06-20 09:02 | NUR ---
RD ASSESSMENT & RECOMMENDATIONS SEE CARE ACTIVITY FOR COMPLETE ASSESSMENT DAILY ESTIMATED NEEDS: Needs based on Critical care, obesity 11-14kcal/kg actual body wt (140kg) kcals/kg 6086-6280 total kcals 1.5-2.0g prot/kg IBW (64.5kg) g protein/kg 96-129 g total protein 25-30ml/kg abw (83kg) mL/kg 5168-8566 total fluid mLs NUTRITION DIAGNOSIS: Swallowing difficulty R/T respiratory failure as evidenced by pt orally intubated and sedated, on OGT feeds. CURRENT TF: Vital 1.2 goal of 60ml/hr ENTERAL NUTRITION RECOMMENDATIONS: Vital AF 1.2 @ 60ml/hr x 24 hrs to provide 1440ml, 1728kcal, 108g prot, 1168ml free water * Maintain current critical care and carb controlled TF formula of Vital AF * TF @ goal meeds 100% est kcal/prot needs * HOB over 30 degrees/ water flush per MD TF may be lowered to 55ml/hr for improved BG control while maintaining Kcal and pro needs. ADDITIONAL RECOMMENDATIONS: * Calibrated bedscale wt * Monitor Propofol rate, need for TF adjustment-> now off * Monitor BGs closely : now improved, on novolog q 6rs + NISS * Monitor lytes- K elevated, monitor need for TF change * Rec bowel regimen- now w/ rectal tube . .
[2020-06-20] MEDS: Pantoprazole Inj IVP SCH ×2 (09:04→21:17)
[2020-06-20] MEDS: Enoxaparin 40mg Inj SUBQ SCH (09:04)
[2020-06-20] MEDS: Docusate 100mg/10ml Liq GT SCH ×2 (09:04→21:18)
--- NOTE | 2020-06-20 09:17 | General Progress Note ---
Subjective Constitutional: Reports: weakness Allergies: Coded Allergies: No Known Allergies (Unverified , 05/28/20) All Systems: reviewed and negative except above Subjective intubated sedated ng in icu Objective Last 24 Hour Vital Signs Date Time Temp Pulse Resp B/P (MAP) Pulse Ox O2 Delivery O2 Flow Rate FiO2 06/20/20 07:00 128 35 147/89 (108) 06/20/20 06:00 110 27 06/20/20 06:00 123 38 139/84 (102) 0 06/20/20 05:00 117 36 145/80 (101) 95 06/20/20 04:00 99.5 105 32 147/87 (107) 95 06/20/20 04:00 Mechanical Ventilator Mechanical Ventilator 06/20/20 04:00 100 06/20/20 04:00 86 06/20/20 03:28 104 38 100 06/20/20 03:00 25 Mechanical Ventilator 100 06/20/20 03:00 113 34 161/87 (111) 93 06/20/20 02:00 96 34 132/75 (94) 100 06/20/20 02:00 30 100 06/20/20 01:00 26 Mechanical Ventilator 100 06/20/20 01:00 95 38 144/81 (102) 100 06/20/20 00:00 82 06/20/20 00:00 30 Mechanical Ventilator 100 06/20/20 00:00 100 06/20/20 00:00 Mechanical Ventilator Mechanical Ventilator 06/20/20 00:00 87 35 134/79 (97) 100 06/19/20 23:24 83 34 100 06/19/20 23:00 28 Mechanical Ventilator 100 06/19/20 23:00 92 38 145/82 (103) 99 06/19/20 22:06 28 Mechanical Ventilator 100 06/19/20 22:00 28 Mechanical Ventilator 100 06/19/20 22:00 93 36 143/71 (95) 98 06/19/20 21:00 86 39 133/65 (87) 97 06/19/20 21:00 28 Mechanical Ventilator 100 06/19/20 20:00 98.6 88 31 128/73 (91) 100 06/19/20 20:00 Mechanical Ventilator Mechanical Ventilator 06/19/20 20:00 24 Mechanical Ventilator 100 06/19/20 20:00 100 06/19/20 20:00 86 06/19/20 19:27 92 33 100 06/19/20 19:00 86 29 127/70 (89) 100 06/19/20 19:00 29 Mechanical Ventilator 100 06/19/20 18:00 31 Mechanical Ventilator 100 06/19/20 18:00 91 34 134/76 (95) 100 06/19/20 17:00 86 31 117/69 (85) 100 06/19/20 17:00 30 Mechanical Ventilator 100 06/19/20 16:00 80 06/19/20 16:00 83 30 127/71 (89) 96 06/19/20 16:00 98.7 83 30 127/71 (89) 96 06/19/20 16:00 31 Mechanical Ventilator 100 06/19/20 16:00 Mechanical Ventilator Mechanical Ventilator 06/19/20 16:00 100 06/19/20 15:30 84 34 100 06/19/20 15:00 32 Mechanical Ventilator 100 06/19/20 15:00 80 30 135/81 (99) 96 06/19/20 14:00 91 33 122/67 (85) 98 06/19/20 14:00 34 Mechanical Ventilator 100 06/19/20 13:01 35 Mechanical Ventilator 100 06/19/20 13:00 91 36 119/71 (87) 97 06/19/20 12:30 94 35 111/73 (86) 100 06/19/20 12:00 99 06/19/20 12:00 100.1 98 35 113/56 (75) 100 06/19/20 12:00 Mechanical Ventilator Mechanical Ventilator 06/19/20 12:00 35 Mechanical Ventilator 100 06/19/20 12:00 98 35 113/56 (75) 100 06/19/20 12:00 100 06/19/20 11:45 100.6 06/19/20 11:30 97 34 115/64 (81) 99 06/19/20 11:20 98 33 100 06/19/20 11:00 99 35 117/72 (87) 97 06/19/20 11:00 35 Mechanical Ventilator 100 06/19/20 10:30 98 35 120/67 (84) 98 06/19/20 10:00 35 Mechanical Ventilator 100 06/19/20 10:00 99 35 126/62 (83) 97 06/19/20 09:30 99 34 124/62 (82) 97 Intake and Output 06/19/20 06/20/20 19:00 07:00 Intake Total 1952.2952 ml 1652.832 ml Output Total 1000 ml 1130 ml Balance 952.2952 ml 522.832 ml Free Water 150 ml 150 ml IV Total 1082.2952 ml 782.832 ml Tube Feeding 720 ml 720 ml Output Urine Total 900 ml 1130 ml Stool Total 100 ml Laboratory Tests 06/20/20 03:15: White Blood Count 6.4, Red Blood Count 3.25L, Hemoglobin 9.4L, Hematocrit 30.8L, Mean Corpuscular Volume 95, Mean Corpuscular Hemoglobin 29.0, Mean Corpuscular Hemoglobin Concent 30.6L, Red Cell Distribution Width 15.6H, Platelet Count 198, Mean Platelet Volume 7.1, Neutrophils (%) (Auto) 57.0, Lymphocytes (%) (Auto) 20.3, Monocytes (%) (Auto) 8.1, Eosinophils (%) (Auto) 8.1H, Basophils (%) (Auto) 6.6H, Sodium Level 137, Potassium Level 5.2H, Chloride Level 101, Carbon Dioxide Level 31, Anion Gap 5, Blood Urea Nitrogen 17, Creatinine 0.6, Estimat Glomerular Filtration Rate > 60, Glucose Level 167H, Calcium Level 9.2, Phosphorus Level 2.4L, Magnesium Level 1.5L, Total Bilirubin 0.9, Aspartate Amino Transf (AST/SGOT) 44H, Alanine Aminotransferase (ALT/SGPT) 25, Alkaline Phosphatase 85, C-Reactive Protein, Quantitative 8.5H, Pro-B-Type Natriuretic Peptide 1249H, Total Protein 6.7, Albumin 2.1L, Globulin 4.6, Albumin/Globulin Ratio 0.5L 06/20/20 04:26: POC Whole Blood Glucose [Pending] Height (Feet): 5 Height (Inches): 5.00 Weight (Pounds): 308 General Appearance: lethargic EENT: normal ENT inspection Neck: normal alignment Cardiovascular: normal peripheral pulses, normal rate, regular rhythm Respiratory/Chest: chest wall non-tender, lungs clear, normal breath sounds Abdomen: normal bowel sounds, non tender, soft Extremities: normal inspection Edema: no edema noted Arm (L), no edema noted Arm (R), no edema noted Leg (L), no edema noted Leg (R), no edema noted Pedal (L), no edema noted Pedal (R), no edema noted Generalized Neurologic: motor weakness Skin: normal pigmentation, warm/dry Assessment/Plan Problem List: (1) Hypoxia ICD Codes: R09.02 - Hypoxemia SNOMED: 323859593 (2) Respiratory failure ICD Codes: J96.90 - Respiratory failure, unspecified, unspecified whether with hypoxia or hypercapnia SNOMED: 410131022 (3) Respiratory distress ICD Codes: R06.03 - Acute respiratory distress; J12.82 - Pneumonia due to coronavirus disease 2019 SNOMED: 552080700 (4) Pneumonia due to COVID-19 virus ICD Codes: U07.1 - COVID-19; J12.82 - Pneumonia due to coronavirus disease 2019 SNOMED: 691421762398678493 Status: unchanged Assessment/Plan: vent abx id pulm f/u cbc bmp am Tank Del Cid DO Jun 20, 2020 09:17
[2020-06-20] MEDS: Acetaminophen 650mg/20.3ml NG PRN ×2 (09:21→21:22)
--- NOTE | 2020-06-20 09:25 | NUR ---
RESPIRATORY NOTE: PT has a fever and is hyperventilating. Increased peak pressures at this time. Alarms were adjusted. Desaturation also noted. Pulse ox re-applied with no improvement in saturation. PT SX but saturation remains low. Sabino ELLINGTON gave medication for fever and implemented cooling methods. Will continue to closely monitor.
--- NOTE | 2020-06-20 11:11 | NUR ---
RESPIRATORY NOTE: Pt still has fever and is fighting the vent. She is triggering the high pressure alarm. Pt was suctioned and ETT was inspected for kinks but ETT is intact. Unable to lower peak pressure at this time. Alarms were adjusted. Will re-asses and re-adjust alarms once fever breaks and PT WOB normalizes.
--- NOTE | 2020-06-20 11:28 | NUR ---
ASE MANAGEMENT:REVIEW 06/20/20 SI: COVID PNA ACUTE RESPIRATORY FAILURE~ INTUBATED 102.0 138 39 98/46 89% ON VENT SUPPORT W/100% FIO2 H/H-9.4/30.8 K+5.2 IS: IV NA PHOS X1 IV MAG SULFATE Q1HRS X2 VERSED GTT MIDODRINE NG Q8HRS IV PROTONIX Q12 IVF@50/HR LOVENOX SQ QD : ICU STATUS DCP: FROM HOME
--- NOTE | 2020-06-20 12:10 | Nephrology Progress Note ---
Assessment/Plan Problem List: (1) DEVENDRA (acute kidney injury) (2) Morbid obesity (3) Diabetes mellitus out of control (4) Pneumonia due to COVID-19 virus (5) Respiratory failure Assessment Acute renal failure Obstructive uropathy, clogged Lennon Respiratory failure COVID-19 pneumonia Morbid obesity Plan June 20: Labs reviewed. Abnormal electrolytes. Patient remains full code. Continue per consultants. Noted and addressed June 19: Labs reviewed. Abnormal electrolytes noted and addressed. Remains intubated on ventilator. Remains full code. June 18: Labs reviewed. Remains intubated on ventilator. Full code. Abnormal electrolyte addressed. Continue as is. June 17: Labs reviewed. Abnormal electrolytes addressed. Patient remains full code and intubated on ventilator. Continue per consultants. Renal parameters are within normal limits. June 16: Labs reviewed. Potassium chloride replaced. Remains full code. Re anton intubated on ventilator. Continue per consultants. Continue to monitor renal parameters. June 15: Labs reviewed. Serum creatinine 1. Stable from renal standpoint to view. Continue per consultants. June 14: Labs reviewed. Full code. Serum creatinine of 3.5 down to 1.4. Low potassium addressed. Continue per current treatment plan. Continue to monitor renal parameters. Midodrine started. Albumin bolus given. Previously: DC Lasix drip Increase Protonix dose Monitor renal parameters, electrolytes Per orders Subjective ROS Limited/Unobtainable: Yes Objective Objective Last 24 Hour Vital Signs Date Time Temp Pulse Resp B/P (MAP) Pulse Ox O2 Delivery O2 Flow Rate FiO2 06/20/20 10:00 143 46 98/46 (63) 92 06/20/20 09:51 102.0 06/20/20 09:00 134 37 98/46 (63) 94 06/20/20 08:00 102.9 135 39 102/44 (63) 89 06/20/20 08:00 138 06/20/20 08:00 Mechanical Ventilator Mechanical Ventilator 06/20/20 08:00 100 06/20/20 08:00 100 06/20/20 07:00 128 35 147/89 (108) 06/20/20 06:00 110 27 06/20/20 06:00 123 38 139/84 (102) 0 06/20/20 05:00 117 36 145/80 (101) 95 06/20/20 04:00 99.5 105 32 147/87 (107) 95 06/20/20 04:00 Mechanical Ventilator Mechanical Ventilator 06/20/20 04:00 100 06/20/20 04:00 86 06/20/20 03:28 104 38 100 06/20/20 03:00 25 Mechanical Ventilator 100 06/20/20 03:00 113 34 161/87 (111) 93 06/20/20 02:00 96 34 132/75 (94) 100 06/20/20 02:00 30 100 06/20/20 01:00 26 Mechanical Ventilator 100 06/20/20 01:00 95 38 144/81 (102) 100 06/20/20 00:00 82 06/20/20 00:00 30 Mechanical Ventilator 100 06/20/20 00:00 100 06/20/20 00:00 Mechanical Ventilator Mechanical Ventilator 06/20/20 00:00 87 35 134/79 (97) 100 06/19/20 23:24 83 34 100 06/19/20 23:00 28 Mechanical Ventilator 100 06/19/20 23:00 92 38 145/82 (103) 99 06/19/20 22:06 28 Mechanical Ventilator 100 06/19/20 22:00 28 Mechanical Ventilator 100 06/19/20 22:00 93 36 143/71 (95) 98 06/19/20 21:00 86 39 133/65 (87) 97 06/19/20 21:00 28 Mechanical Ventilator 100 06/19/20 20:00 98.6 88 31 128/73 (91) 100 06/19/20 20:00 Mechanical Ventilator Mechanical Ventilator 06/19/20 20:00 24 Mechanical Ventilator 100 06/19/20 20:00 100 06/19/20 20:00 86 06/19/20 19:27 92 33 100 06/19/20 19:00 86 29 127/70 (89) 100 06/19/20 19:00 29 Mechanical Ventilator 100 06/19/20 18:00 31 Mechanical Ventilator 100 06/19/20 18:00 91 34 134/76 (95) 100 06/19/20 17:00 86 31 117/69 (85) 100 06/19/20 17:00 30 Mechanical Ventilator 100 06/19/20 16:00 80 06/19/20 16:00 83 30 127/71 (89) 96 06/19/20 16:00 98.7 83 30 127/71 (89) 96 06/19/20 16:00 31 Mechanical Ventilator 100 06/19/20 16:00 Mechanical Ventilator Mechanical Ventilator 06/19/20 16:00 100 06/19/20 15:30 84 34 100 06/19/20 15:00 32 Mechanical Ventilator 100 06/19/20 15:00 80 30 135/81 (99) 96 06/19/20 14:00 91 33 122/67 (85) 98 06/19/20 14:00 34 Mechanical Ventilator 100 06/19/20 13:01 35 Mechanical Ventilator 100 06/19/20 13:00 91 36 119/71 (87) 97 06/19/20 12:30 94 35 111/73 (86) 100 Intake and Output 06/19/20 06/20/20 19:00 07:00 Intake Total 1952.2952 ml 1652.832 ml Output Total 1000 ml 1130 ml Balance 952.2952 ml 522.832 ml Free Water 150 ml 150 ml IV Total 1082.2952 ml 782.832 ml Tube Feeding 720 ml 720 ml Output Urine Total 900 ml 1130 ml Stool Total 100 ml Current Medications Medications (Trade) Dose Ordered Sig/Zelda Route PRN Reason Start Time Stop Time Status Last Admin Dose Admin Acetaminophen (Tylenol) 650 mg Q4H PRN NG Temp >100.5 05/31/20 21:45 06/30/20 21:44 06/20/20 09:21 Acetaminophen (Tylenol) 650 mg Q6H PRN NG Mild Pain (Pain Scale 1-3) 06/06/20 18:00 07/06/20 17:59 06/13/20 23:10 Chlorhexidine Gluconate (Inna-Hex 2%) 1 applic DAILY@1999 TOPIC 05/30/20 20:00 08/28/20 19:59 06/19/20 20:11 Dextrose (Dextrose 50%) 25 ml Q30M PRN IV Hypoglycemia 06/05/20 10:45 09/03/20 10:44 Dextrose (Dextrose 50%) 50 ml Q30M PRN IV Hypoglycemia 06/05/20 10:45 09/03/20 10:44 Docusate Sodium (Colace) 100 mg Q12HR GT 06/07/20 21:00 07/07/20 20:59 06/20/20 09:04 Enoxaparin Sodium (Lovenox) 40 mg DAILY SUBQ 05/30/20 10:00 08/28/20 09:59 06/20/20 09:04 Insulin Aspart (NovoLOG) EVERY 6 HOURS SUBQ 06/07/20 00:00 09/03/20 11:59 06/20/20 05:32 Insulin Aspart (NovoLOG) 12 units EVERY 6 HOURS SUBQ 06/20/20 12:00 09/04/20 08:59 Magnesium Sulfate 100 ml @ 100 mls/hr Q1H IVPB 06/20/20 11:15 06/20/20 13:14 Midazolam HCl 100 mg/Dextrose 200 ml @ 0 mls/hr Q24H PRN IV sedation 06/19/20 11:46 06/21/20 11:45 06/19/20 13:01 Midodrine (Pro-Amatine) 10 mg Q8HR ORAL 06/14/20 14:00 09/12/20 13:59 06/20/20 05:31 Pantoprazole (Protonix) 40 mg Q12HR IVP 06/13/20 21:00 07/03/20 08:59 06/20/20 09:04 Polyethylene Glycol (Miralax) 17 gm BEDTIME GT 06/07/20 21:00 07/07/20 20:59 06/17/20 21:02 Sodium Chloride 1,000 ml @ 50 mls/hr Q20H IV 06/06/20 08:00 07/06/20 07:59 06/19/20 14:01 Sodium Phosphate 15 mm/Sodium Chloride 280 ml @ 70.273 mls/ hr ONCE ONCE IVPB 06/20/20 13:00 06/20/20 16:59 Laboratory Tests 06/20/20 03:15: White Blood Count 6.4, Red Blood Count 3.25L, Hemoglobin 9.4L, Hematocrit 30.8L, Mean Corpuscular Volume 95, Mean Corpuscular Hemoglobin 29.0, Mean Corpuscular Hemoglobin Concent 30.6L, Red Cell Distribution Width 15.6H, Platelet Count 198, Mean Platelet Volume 7.1, Neutrophils (%) (Auto) 57.0, Lymphocytes (%) (Auto) 20.3, Monocytes (%) (Auto) 8.1, Eosinophils (%) (Auto) 8.1H, Basophils (%) (Auto) 6.6H, Sodium Level 137, Potassium Level 5.2H, Chloride Level 101, Carbon Dioxide Level 31, Anion Gap 5, Blood Urea Nitrogen 17, Creatinine 0.6, Estimat Glomerular Filtration Rate > 60, Glucose Level 167H, Calcium Level 9.2, Phosphorus Level 2.4L, Magnesium Level 1.5L, Total Bilirubin 0.9, Aspartate Amino Transf (AST/SGOT) 44H, Alanine Aminotransferase (ALT/SGPT) 25, Alkaline Phosphatase 85, C-Reactive Protein, Quantitative 8.5H, Pro-B-Type Natriuretic Peptide 1249H, Total Protein 6.7, Albumin 2.1L, Globulin 4.6, Albumin/Globulin Ratio 0.5L 06/20/20 04:26: POC Whole Blood Glucose [Pending] Height (Feet): 5 Height (Inches): 5.00 Weight (Pounds): 308 General Appearance: mild distress EENT: other - Intubated on ventilator Cardiovascular: tachycardia Respiratory/Chest: decreased breath sounds Abdomen: other - Obese Rigo Tyler MD Jun 20, 2020 12:09
[2020-06-20] MEDS ORDERED: Sodium Phosphate 15 MM in NS 275 ML IVPB ONE (13:00)
--- NOTE | 2020-06-20 14:53 | Surgery Progress Note ---
Surgery Progress Note Subjective Additional Comments ill appearing afebrile, h/h stable electrolytes being replaced Objective Last 24 Hour Vital Signs Date Time Temp Pulse Resp B/P (MAP) Pulse Ox O2 Delivery O2 Flow Rate FiO2 06/20/20 14:00 35 Mechanical Ventilator 100 06/20/20 13:00 132 37 89/43 (58) 98 06/20/20 13:00 38 Mechanical Ventilator 100 06/20/20 12:00 100.0 140 44 96/58 (71) 96 06/20/20 12:00 Mechanical Ventilator Mechanical Ventilator 06/20/20 12:00 38 Mechanical Ventilator 100 06/20/20 12:00 100 06/20/20 12:00 139 06/20/20 11:11 141 31 100 06/20/20 11:00 136 26 92/55 (67) 97 06/20/20 10:00 143 46 98/46 (63) 92 06/20/20 09:51 102.0 06/20/20 09:47 146 32 100 06/20/20 09:25 128 43 100 06/20/20 09:00 134 37 98/46 (63) 94 06/20/20 08:00 102.9 135 39 102/44 (63) 89 06/20/20 08:00 138 06/20/20 08:00 Mechanical Ventilator Mechanical Ventilator 06/20/20 08:00 100 06/20/20 08:00 100 06/20/20 07:08 134 38 100 06/20/20 07:00 128 35 147/89 (108) 06/20/20 06:00 110 27 06/20/20 06:00 123 38 139/84 (102) 0 06/20/20 05:00 117 36 145/80 (101) 95 06/20/20 04:00 99.5 105 32 147/87 (107) 95 06/20/20 04:00 Mechanical Ventilator Mechanical Ventilator 06/20/20 04:00 100 06/20/20 04:00 86 06/20/20 03:28 104 38 100 06/20/20 03:00 25 Mechanical Ventilator 100 06/20/20 03:00 113 34 161/87 (111) 93 06/20/20 02:00 96 34 132/75 (94) 100 06/20/20 02:00 30 100 06/20/20 01:00 26 Mechanical Ventilator 100 06/20/20 01:00 95 38 144/81 (102) 100 06/20/20 00:00 82 06/20/20 00:00 30 Mechanical Ventilator 100 06/20/20 00:00 100 06/20/20 00:00 Mechanical Ventilator Mechanical Ventilator 06/20/20 00:00 87 35 134/79 (97) 100 06/19/20 23:24 83 34 100 06/19/20 23:00 28 Mechanical Ventilator 100 06/19/20 23:00 92 38 145/82 (103) 99 06/19/20 22:06 28 Mechanical Ventilator 100 06/19/20 22:00 28 Mechanical Ventilator 100 06/19/20 22:00 93 36 143/71 (95) 98 06/19/20 21:00 86 39 133/65 (87) 97 06/19/20 21:00 28 Mechanical Ventilator 100 06/19/20 20:00 98.6 88 31 128/73 (91) 100 06/19/20 20:00 Mechanical Ventilator Mechanical Ventilator 06/19/20 20:00 24 Mechanical Ventilator 100 06/19/20 20:00 100 06/19/20 20:00 86 06/19/20 19:27 92 33 100 06/19/20 19:00 86 29 127/70 (89) 100 06/19/20 19:00 29 Mechanical Ventilator 100 06/19/20 18:00 31 Mechanical Ventilator 100 06/19/20 18:00 91 34 134/76 (95) 100 06/19/20 17:00 86 31 117/69 (85) 100 06/19/20 17:00 30 Mechanical Ventilator 100 06/19/20 16:00 80 06/19/20 16:00 83 30 127/71 (89) 96 06/19/20 16:00 98.7 83 30 127/71 (89) 96 06/19/20 16:00 31 Mechanical Ventilator 100 06/19/20 16:00 Mechanical Ventilator Mechanical Ventilator 06/19/20 16:00 100 06/19/20 15:30 84 34 100 06/19/20 15:00 32 Mechanical Ventilator 100 06/19/20 15:00 80 30 135/81 (99) 96 I&O Intake and Output 06/19/20 06/20/20 19:00 07:00 Intake Total 1952.2952 ml 1652.832 ml Output Total 1000 ml 1130 ml Balance 952.2952 ml 522.832 ml Free Water 150 ml 150 ml IV Total 1082.2952 ml 782.832 ml Tube Feeding 720 ml 720 ml Output Urine Total 900 ml 1130 ml Stool Total 100 ml Dressing: saturated Cardiovascular: RSR Respiratory: decreased breath sounds Abdomen: soft, non-tender, present bowel sounds Extremities: no tenderness, no cyanosis Laboratory Tests Test 06/20/20 03:15 06/20/20 04:26 06/20/20 13:12 White Blood Count 6.4 K/UL (4.8-10.8) Red Blood Count 3.25 M/UL (4.20-5.40) L Hemoglobin 9.4 G/DL (12.0-16.0) L Hematocrit 30.8 % (37.0-47.0) L Mean Corpuscular Volume 95 FL (80-99) Mean Corpuscular Hemoglobin 29.0 PG (27.0-31.0) Mean Corpuscular Hemoglobin Concent 30.6 G/DL (32.0-36.0) L Red Cell Distribution Width 15.6 % (11.6-14.8) H Platelet Count 198 K/UL (150-450) Mean Platelet Volume 7.1 FL (6.5-10.1) Neutrophils (%) (Auto) 57.0 % (45.0-75.0) Lymphocytes (%) (Auto) 20.3 % (20.0-45.0) Monocytes (%) (Auto) 8.1 % (1.0-10.0) Eosinophils (%) (Auto) 8.1 % (0.0-3.0) H Basophils (%) (Auto) 6.6 % (0.0-2.0) H Sodium Level 137 MMOL/L (136-145) Potassium Level 5.2 MMOL/L (3.5-5.1) H Chloride Level 101 MMOL/L (98-107) Carbon Dioxide Level 31 MMOL/L (21-32) Anion Gap 5 mmol/L (5-15) Blood Urea Nitrogen 17 mg/dL (7-18) Creatinine 0.6 MG/DL (0.55-1.30) Estimat Glomerular Filtration Rate > 60 mL/min (>60) Glucose Level 167 MG/DL (74-106) H Calcium Level 9.2 MG/DL (8.5-10.1) Phosphorus Level 2.4 MG/DL (2.5-4.9) L Magnesium Level 1.5 MG/DL (1.8-2.4) L Total Bilirubin 0.9 MG/DL (0.2-1.0) Aspartate Amino Transf (AST/SGOT) 44 U/L (15-37) H Alanine Aminotransferase (ALT/SGPT) 25 U/L (12-78) Alkaline Phosphatase 85 U/L (46-116) C-Reactive Protein, Quantitative 8.5 mg/dL (0.00-0.90) H Pro-B-Type Natriuretic Peptide 1249 pg/mL (0-125) H Total Protein 6.7 G/DL (6.4-8.2) Albumin 2.1 G/DL (3.4-5.0) L Globulin 4.6 g/dL Albumin/Globulin Ratio 0.5 (1.0-2.7) L POC Whole Blood Glucose Pending Pending Plan Problems: (1) Respiratory distress (2) Respiratory failure Assessment & Plan: 50-year-old female Covid positive respiratory insufficiency intubated on ventilatory support declining. Leukocytosis increase oxygen requirement. Vent settings per pulmonology reviewed identified and agree. Unfortunately further surgical invention at this time is not appropriate as patient is not a candidate and her current condition. Prognosis overall guarded. Tracheostomy can be considered in the future if recovering or shows improvement and requires unable to be weaned from ventilator support. Currently okay for nutritional optimization with NG tube. Will need significant mon itoring for decubitus formation given patient's size and condition. Okay for air mattress tolerated. Turn every 2 hours as tolerated. Patient is otherwise critically ill and blood pressure labile. Will need to monitor closely.Bilateral infiltrates are again demonstrated. Stable tube and line positions. (3) Hypoxia (4) Pneumonia due to COVID-19 virus Assessment & Plan: ++ as per pulm and ID (5) Diabetes mellitus out of control Assessment & Plan: DAILY ESTIMATED NEEDS: Needs based on Critical care, obesity 11-14kcal/kg actual body wt (140kg) kcals/kg 1649-1505 total kcals 1.5-2.0g prot/kg IBW (64.5kg) g protein/kg 96-129 g total protein 25-30ml/kg abw (83kg) mL/kg 2660-4810 total fluid mLs NUTRITION DIAGNOSIS: Swallowing difficulty R/T respiratory failure as evidenced by pt orally intubated and sedated, on OGT feeds. CURRENT TF: Vital 1.2 goal of 60ml/hr ENTERAL NUTRITION RECOMMENDATIONS: Vital AF 1.2 @ 60ml/hr x 24 hrs to provide 1440ml, 1728kcal, 108g prot, 1168ml free water * Maintain current critical care and carb controlled TF formula of Vital AF * TF @ goal meeds 100% est kcal/prot needs * HOB over 30 degrees/ water flush per MD TF may be lowered to 55ml/hr for improved BG control while maintaining Kcal and pro needs. ADDITIONAL RECOMMENDATIONS: * Calibrated bedscale wt * Monitor Propofol rate, need for TF adjustment-> now off * Monitor BGs closely : now improved, on novolog q 6rs + NISS * Monitor lytes- K elevated, monitor need for TF change * Rec bowel regimen- now w/ rectal tube . Az Devine Jun 20, 2020 14:53
--- NOTE | 2020-06-20 15:24 | NUR ---
INSURANCE CLINICALS AND REVIEWS FAXED TO [facility] T: [phone] EXT 1315 F: [phone]
--- NOTE | 2020-06-20 18:30 | NUR ---
NURSE NOTES: PLACED A TELEPHONE CALL TO DR HUMPHREY AND MADE AWARE & NOTIFIED REGARDING PT POTASSIUM LEVEL 5.2. RECEIVED A T.O FROM DR MILLER TO GIVE KAYEXALATE 30G X 1. NEW ORDERS NOTED AND CARRIED OUT . WILL CONT TO MONITOR.
[2020-06-20] MEDS ORDERED: Sodium Polystyrene Sulfonate 15gm Powder ORAL SCH (18:38)
--- NOTE | 2020-06-20 19:20 | NUR ---
NURSE HAND-OFF REPORT: Latest Vital Signs: Temperature 99.8 , Pulse 117 , B/P 97 /64 , Respiratory Rate 26 , O2 SAT 100 , Mechanical Ventilator, fiO2 100% . Vital Sign Comment: EKG Rhythm: Sinus Tachycardia Rhythm change?: Babs TOLLIVER Notified?: Babs EDWARDS MD Response: Latest Meyers Fall Score: 70 Fall Risk: High Risk Safety Measures: Call light Within Reach, Bed Alarm Zone 1, Side Rails Side Rails x2, Bed position Low and Locked. Fall Precautions: Yellow Socks Report given to Morgan JAEGER RN.
--- NOTE | 2020-06-20 19:21 | NUR ---
NURSE NOTES: Received report from RAKEL Lorenzana. Upon assessment pt appears to be sleeping. Non responsive to verbal stimuli. -2 RASS score observed. BP stable. EKG shows ST at 110 BPM. Temperature of 101.5 rectal. cooling measures initiated. OGT Running Vital AF @ 60 mL with 0 mL of residual. LINDA PICC patent and intact running @ 4mL; NS @ 50mL. Lennon draining well to gravity. Rectal tube shows 200 mL upon start of shift. Bed kept in lowest and locked position. Side rails up x3. Call light within reach. Will monitor.
[2020-06-20] MEDS: Miralax 17gm pkt GT SCH (21:00)
--- NOTE | 2020-06-20 21:00 | NUR ---
NURSE NOTES: Temperature dropped to 100.1 rectally. Wean fiO2 to 80% with RT at bedside. saturating 97%. Cooling measures continued. No S/S of distress noted. Will monitor.
[2020-06-20] MEDS: Dyna-Hex 2% Top Sol 2oz TOPIC SCH (21:17)
[2020-06-21] VITALS (36 sets, daily range): BP systolic 89–146; BP diastolic 42–99
[2020-06-21] MEDS: NovoLOG Insulin Flexpen SUBQ SCH ×8 (00:41→18:00)
[2020-06-21 04:54] LABS: ALANINE AMINOTRANSFERASE 21 U/L (12-78); ALBUMIN 1.8 G/DL (3.4-5.0); ALBUMIN/GLOBULIN RATIO 0.4 (1.0-2.7); ALKALINE PHOSPHATASE 61 U/L (46-116); ANION GAP 3 mmol/L (5-15); ASPARTATE AMINO TRANSFERASE 36 U/L (15-37); BILIRUBIN,TOTAL 0.8 MG/DL (0.2-1.0); BLOOD UREA NITROGEN 22 mg/dL (7-18); CARBON DIOXIDE 35 MMOL/L (21-32); CHLORIDE 103 MMOL/L (98-107); CREATININE 0.6 MG/DL (0.55-1.30); POTASSIUM 4.6 MMOL/L (3.5-5.1); SODIUM 141 MMOL/L (136-145)
[2020-06-21 05:03] LABS: PHOSPHORUS 1.6 MG/DL (2.5-4.9)
[2020-06-21 05:25] LABS: BASOPHILS % (AUTO) 0.4 % (0.0-2.0); EOSINOPHILS % (AUTO) 2.2 % (0.0-3.0); HEMATOCRIT 24.6 % (37.0-47.0); HEMOGLOBIN 8.1 G/DL (12.0-16.0); LYMPHOCYTES % (AUTO) 13.8 % (20.0-45.0); MEAN CORPUSCULAR VOLUME 93 FL (80-99); MONOCYTES % (AUTO) 2.8 % (1.0-10.0); NEUTROPHILS % (AUTO) 80.7 % (45.0-75.0); PLATELET COUNT 192 K/UL (150-450); RED BLOOD COUNT 2.64 M/UL (4.20-5.40); RED CELL DISTRIBUTION WIDTH 17.2 % (11.6-14.8); WHITE BLOOD COUNT 8.5 K/UL (4.8-10.8)
[2020-06-21] MEDS: Acetaminophen 650mg/20.3ml NG PRN ×2 (05:45→12:19)
[2020-06-21] MEDS: Midodrine 10mg tab ORAL SCH ×3 (05:45→21:11)
[2020-06-21] MEDS: D5W IV PRN (06:27)
[2020-06-21] MEDS: MIDAZOLAM HCL IV PRN (06:27)
--- NOTE | 2020-06-21 06:42 | General Progress Note ---
Subjective ROS Limited/Unobtainable: Yes Allergies: Coded Allergies: No Known Allergies (Unverified , 05/28/20) Subjective events noted interval notes reviewed glucose values are stable no longer on IVSM Item Value Date Time Bedside Blood Glucose 108 mg/dl 06/21/20 0556 Bedside Blood Glucose 139 mg/dl H 06/21/20 0041 Bedside Blood Glucose 202 mg/dl H 06/20/20 1744 Bedside Blood Glucose 157 mg/dl H 06/20/20 1200 Bedside Blood Glucose 187 mg/dl H 06/20/20 0600 Objective Last 24 Hour Vital Signs Date Time Temp Pulse Resp B/P (MAP) Pulse Ox O2 Delivery O2 Flow Rate FiO2 06/21/20 06:27 24 Mechanical Ventilator 80 06/21/20 04:00 122 06/21/20 04:00 80 06/21/20 04:00 20 Mechanical Ventilator 90 06/21/20 04:00 101.8 113 28 99/55 (70) 97 06/21/20 04:00 Mechanical Ventilator Mechanical Ventilator 06/21/20 03:29 117 30 80 06/21/20 03:00 24 90 06/21/20 03:00 119 32 115/76 (89) 99 06/21/20 02:00 24 90 06/21/20 02:00 116 31 108/75 (86) 98 06/21/20 01:00 31 80 06/21/20 01:00 114 31 107/62 (77) 99 06/21/20 00:00 112 28 102/62 (75) 98 06/21/20 00:00 30 Endotracheal Tube 80 06/21/20 00:00 Mechanical Ventilator Mechanical Ventilator 06/21/20 00:00 80 06/21/20 00:00 115 06/20/20 23:29 113 29 80 06/20/20 23:00 116 30 102/81 (88) 100 06/20/20 23:00 24 90 06/20/20 22:00 20 Endotracheal Tube 90 06/20/20 22:00 115 26 92/60 (71) 100 06/20/20 21:52 100.2 06/20/20 21:00 28 Endotracheal Tube 90 06/20/20 21:00 100.2 120 44 97/50 (66) 99 06/20/20 20:00 Mechanical Ventilator Mechanical Ventilator 06/20/20 20:00 120 44 106/65 (79) 100 06/20/20 20:00 114 06/20/20 20:00 22 Endotracheal Tube 90 06/20/20 20:00 100 06/20/20 19:48 119 28 90 06/20/20 19:00 101.5 116 39 100/63 (75) 100 06/20/20 19:00 28 Endotracheal Tube 90 06/20/20 18:00 26 Mechanical Ventilator 100 06/20/20 18:00 117 36 97/64 (75) 100 06/20/20 17:00 32 Mechanical Ventilator 100 06/20/20 17:00 121 32 108/64 (79) 100 06/20/20 16:00 100 06/20/20 16:00 99.8 119 38 106/69 (81) 100 06/20/20 16:00 121 06/20/20 16:00 38 Mechanical Ventilator 100 06/20/20 16:00 Mechanical Ventilator Mechanical Ventilator 06/20/20 16:00 Mechanical Ventilator Mechanical Ventilator 06/20/20 15:04 120 34 100 06/20/20 15:00 38 Mechanical Ventilator 100 06/20/20 15:00 124 36 99/60 (73) 100 06/20/20 14:00 131 41 102/63 (76) 100 06/20/20 14:00 35 Mechanical Ventilator 100 06/20/20 13:00 132 37 89/43 (58) 98 06/20/20 13:00 38 Mechanical Ventilator 100 06/20/20 12:00 100.0 140 44 96/58 (71) 96 06/20/20 12:00 Mechanical Ventilator Mechanical Ventilator 06/20/20 12:00 38 Mechanical Ventilator 100 06/20/20 12:00 100 06/20/20 12:00 139 06/20/20 11:11 141 31 100 06/20/20 11:00 136 26 92/55 (67) 97 06/20/20 10:00 143 46 98/46 (63) 92 06/20/20 09:51 102.0 06/20/20 09:47 146 32 100 06/20/20 09:25 128 43 100 06/20/20 09:00 134 37 98/46 (63) 94 06/20/20 08:00 102.9 135 39 102/44 (63) 89 06/20/20 08:00 138 06/20/20 08:00 Mechanical Ventilator Mechanical Ventilator 06/20/20 08:00 100 06/20/20 08:00 100 06/20/20 07:08 134 38 100 06/20/20 07:00 128 35 147/89 (108) Intake and Output 06/20/20 06/21/20 19:00 07:00 Intake Total 1329.092 ml 576 ml Output Total 710 ml 290 ml Balance 619.092 ml 286 ml Free Water 90 ml IV Total 759.092 ml 36 ml Tube Feeding 480 ml 540 ml Output Urine Total 710 ml 290 ml # Bowel Movements 100 Laboratory Tests 06/20/20 13:12: POC Whole Blood Glucose [Pending] 06/20/20 17:35: POC Whole Blood Glucose [Pending] 06/21/20 00:33: POC Whole Blood Glucose 139H 06/21/20 03:20: White Blood Count 8.5, Red Blood Count 2.64L, Hemoglobin 8.1L, Hematocrit 24.6L, Mean Corpuscular Volume 93, Mean Corpuscular Hemoglobin 30.8, Mean Corpuscular Hemoglobin Concent 33.0, Red Cell Distribution Width 17.2H, Platelet Count 192, Mean Platelet Volume 7.4, Neutrophils (%) (Auto) 80.7H, Lymphocytes (%) (Auto) 13.8L, Monocytes (%) (Auto) 2.8, Eosinophils (%) (Auto) 2.2, Basophils (%) (Auto) 0.4, Sodium Level 141, Potassium Level 4.6, Chloride Level 103, Carbon Dioxide Level 35H, Anion Gap 3L, Blood Urea Nitrogen 22H, Creatinine 0.6, Estimat Glomerular Filtration Rate > 60, Glucose Level 88, Calcium Level 9.0, Phosphorus Level 1.6L, Magnesium Level 2.3, Total Bilirubin 0.8, Aspartate Amino Transf (AST/SGOT) 36, Alanine Aminotransferase (ALT/SGPT) 21, Alkaline Phosphatase 61, C-Reactive Protein, Quantitative 43.8H, Total Protein 6.0L, Albumin 1.8L, Globulin 4.2, Albumin/Globulin Ratio 0.4L Height (Feet): 5 Height (Inches): 5.00 Weight (Pounds): 308 Objective Current Medications Medications (Trade) Dose Ordered Sig/Zelda Route PRN Reason Start Time Stop Time Status Last Admin Dose Admin Acetaminophen (Tylenol) 650 mg Q4H PRN NG Temp >100.5 05/31/20 21:45 06/30/20 21:44 06/21/20 05:45 Acetaminophen (Tylenol) 650 mg Q6H PRN NG Mild Pain (Pain Scale 1-3) 06/06/20 18:00 07/06/20 17:59 06/13/20 23:10 Chlorhexidine Gluconate (Inna-Hex 2%) 1 applic DAILY@2000 TOPIC 05/30/20 20:00 08/28/20 19:59 06/20/20 21:17 Dextrose (Dextrose 50%) 25 ml Q30M PRN IV Hypoglycemia 06/05/20 10:45 09/03/20 10:44 Dextrose (Dextrose 50%) 50 ml Q30M PRN IV Hypoglycemia 06/05/20 10:45 09/03/20 10:44 Docusate Sodium (Colace) 100 mg Q12HR GT 06/07/20 21:00 07/07/20 20:59 06/20/20 21:18 Enoxaparin Sodium (Lovenox) 40 mg DAILY SUBQ 05/30/20 10:00 08/28/20 09:59 06/20/20 09:04 Insulin Aspart (NovoLOG) EVERY 6 HOURS SUBQ 06/07/20 00:00 09/03/20 11:59 06/20/20 17:44 Insulin Aspart (NovoLOG) 12 units EVERY 6 HOURS SUBQ 06/20/20 12:00 09/04/20 08:59 06/21/20 05:56 Midazolam HCl 100 mg/Dextrose 200 ml @ 0 mls/hr Q24H PRN IV sedation 06/19/20 11:46 06/21/20 11:45 06/21/20 06:27 Midodrine (Pro-Amatine) 10 mg Q8HR ORAL 06/14/20 14:00 09/12/20 13:59 06/21/20 05:45 Pantoprazole (Protonix) 40 mg Q12HR IVP 06/13/20 21:00 07/03/20 08:59 06/20/20 21:17 Polyethylene Glycol (Miralax) 17 gm BEDTIME GT 06/07/20 21:00 07/07/20 20:59 06/17/20 21:02 Sodium Chloride 1,000 ml @ 50 mls/hr Q20H IV 06/06/20 08:00 07/06/20 07:59 06/19/20 14:01 Assessment/Plan Problem List: (1) Diabetes mellitus out of control ICD Codes: E11.65 - Type 2 diabetes mellitus with hyperglycemia SNOMED: 50990639, 872350993 (2) Pneumonia due to COVID-19 virus ICD Codes: U07.1 - COVID-19; J12.82 - Pneumonia due to coronavirus disease 2019 SNOMED: 536143827522996728 (3) Respiratory distress ICD Codes: R06.03 - Acute respiratory distress; J12.82 - Pneumonia due to coronavirus disease 2019 SNOMED: 266760377 Status: unchanged Assessment/Plan: reduce Novolog to 10 units every 6 hours continue Novolog sliding scale every 6 hours Huber Adame MD Jun 21, 2020 06:42
--- NOTE | 2020-06-21 07:10 | NUR ---
RESPIRATORY NOTE: PT received on AC/VC: 15, 600, 80%, +5. Alarms are on and audible. Vent circuit is secure and out of the way. Airway is secure and patent. Bilateral soft restraints securely in place. No s/s of respiratory distress noted at this time. Will continue to closely monitor.
--- NOTE | 2020-06-21 07:28 | Hematology/Onc Progress Note ---
Assessment/Plan Assessment/Plan # Thrombocytopenia is due to infection/underlying covid19+++ --> ABX ceftriaxone -->zosyn --> on steriods likely cause of initial wbc --> per pulm --> plt 107->156-->192-->205 --> smear reviewed # Anemia due to chronic disease --> hgb goal is >7 --> transfuse prn --> ferritin is >1000 --> hold off on iron --> 10-->9.8->9-->8-->8.2-->9.4-->8.1 # Elevated ddimer due to covid19++ --> duplex legs is negative --> underlying covid rx # Hypoxia -> due to covid19 # Hypoxemia --> rx same as above # Respiratory failure --> on vent --> per pulm # Pneumonia due to COVID-19 virus --> per pulm rx -> sp remdesivir # Diabetes mellitus out of control --> hgb a1c goal <7 # Poor prognosis # Dvt ppx lovenox sq Appreciate consultation and dw RN Subjective Respiratory: Denies: no symptoms, cough, shortness of breath, SOB with excertion, SOB at rest, sputum, wheezing, other Gastrointestinal/Abdominal: Denies: no symptoms, abdomen distended, abdominal pain, black stools, tarry stools, blood in stool, constipated, diarrhea, difficulty swallowing, nausea, poor appetite, poor fluid intake, rectal bleeding, vomiting, other Allergies: Coded Allergies: No Known Allergies (Unverified , 05/28/20) All Systems: reviewed and negative except above Subjective 06/10 nv, on vent, with ogt, on fentanyl and versed, plt stable 06/11 nv, vent adjusted is on ogt, meds reviewed 06/12 nv, vent, meds noted, labs noted, no bleeding, hgb 10.4 06/13 nv, is on vent, meds reviewed, no bleeding, cbc reviewed 06/14 nv, on vent, tachy, labs reviewed, gross hematuria, febrile overnight, abx 06/17 nv, on vent, labs noted, no major changes, feeling better overnight 06/18 nv, meds reviewed, labs noted, no major events, hgb 8.6 06/19 nv, remains intubated, with fluids, labs reviewed, meds noted 06/20 nv, intubated remains on restraints, meds noted as well, as labs 06/21 nv, remains on vent, on restraints, meds reviewed, labs noted Objective Objective Current Medications Medications (Trade) Dose Ordered Sig/Zelda Route PRN Reason Start Time Stop Time Status Last Admin Dose Admin Acetaminophen (Tylenol) 650 mg Q4H PRN NG Temp >100.5 05/31/20 21:45 06/30/20 21:44 06/21/20 05:45 Acetaminophen (Tylenol) 650 mg Q6H PRN NG Mild Pain (Pain Scale 1-3) 06/06/20 18:00 07/06/20 17:59 06/13/20 23:10 Chlorhexidine Gluconate (Inna-Hex 2%) 1 applic DAILY@2000 TOPIC 05/30/20 20:00 08/28/20 19:59 06/20/20 21:17 Dextrose (Dextrose 50%) 25 ml Q30M PRN IV Hypoglycemia 06/05/20 10:45 09/03/20 10:44 Dextrose (Dextrose 50%) 50 ml Q30M PRN IV Hypoglycemia 06/05/20 10:45 09/03/20 10:44 Docusate Sodium (Colace) 100 mg Q12HR GT 06/07/20 21:00 07/07/20 20:59 06/20/20 21:18 Enoxaparin Sodium (Lovenox) 40 mg DAILY SUBQ 05/30/20 10:00 08/28/20 09:59 06/20/20 09:04 Insulin Aspart (NovoLOG) EVERY 6 HOURS SUBQ 06/07/20 00:00 09/03/20 11:59 06/20/20 17:44 Insulin Aspart (NovoLOG) 10 units EVERY 6 HOURS SUBQ 06/21/20 12:00 09/04/20 08:59 Midazolam HCl 100 mg/Dextrose 200 ml @ 0 mls/hr Q24H PRN IV sedation 06/19/20 11:46 06/21/20 11:45 06/21/20 06:27 Midodrine (Pro-Amatine) 10 mg Q8HR ORAL 06/14/20 14:00 09/12/20 13:59 06/21/20 05:45 Pantoprazole (Protonix) 40 mg Q12HR IVP 06/13/20 21:00 07/03/20 08:59 06/20/20 21:17 Polyethylene Glycol (Miralax) 17 gm BEDTIME GT 06/07/20 21:00 07/07/20 20:59 06/17/20 21:02 Sodium Chloride 1,000 ml @ 50 mls/hr Q20H IV 06/06/20 08:00 07/06/20 07:59 06/19/20 14:01 Last 24 Hour Vital Signs Date Time Temp Pulse Resp B/P (MAP) Pulse Ox O2 Delivery O2 Flow Rate FiO2 06/21/20 06:30 135 45 06/21/20 06:27 24 Mechanical Ventilator 80 06/21/20 06:15 102.1 06/21/20 06:00 30 80 06/21/20 06:00 124 44 145/88 (107) 100 06/21/20 05:00 115 29 132/62 (85) 99 06/21/20 05:00 32 Endotracheal Tube 80 06/21/20 04:00 122 06/21/20 04:00 80 06/21/20 04:00 20 Mechanical Ventilator 90 06/21/20 04:00 101.8 113 28 99/55 (70) 97 06/21/20 04:00 Mechanical Ventilator Mechanical Ventilator 06/21/20 03:29 117 30 80 06/21/20 03:00 24 90 06/21/20 03:00 119 32 115/76 (89) 99 06/21/20 02:00 24 90 06/21/20 02:00 116 31 108/75 (86) 98 06/21/20 01:00 31 80 06/21/20 01:00 114 31 107/62 (77) 99 06/21/20 00:00 112 28 102/62 (75) 98 06/21/20 00:00 30 Endotracheal Tube 80 06/21/20 00:00 Mechanical Ventilator Mechanical Ventilator 06/21/20 00:00 80 06/21/20 00:00 115 06/20/20 23:29 113 29 80 06/20/20 23:00 116 30 102/81 (88) 100 06/20/20 23:00 24 90 06/20/20 22:00 20 Endotracheal Tube 90 06/20/20 22:00 115 26 92/60 (71) 100 06/20/20 21:52 100.2 06/20/20 21:00 28 Endotracheal Tube 90 06/20/20 21:00 100.2 120 44 97/50 (66) 99 06/20/20 20:00 Mechanical Ventilator Mechanical Ventilator 06/20/20 20:00 120 44 106/65 (79) 100 06/20/20 20:00 114 06/20/20 20:00 22 Endotracheal Tube 90 06/20/20 20:00 100 06/20/20 19:48 119 28 90 06/20/20 19:00 101.5 116 39 100/63 (75) 100 06/20/20 19:00 28 Endotracheal Tube 90 06/20/20 18:00 26 Mechanical Ventilator 100 06/20/20 18:00 117 36 97/64 (75) 100 06/20/20 17:00 32 Mechanical Ventilator 100 06/20/20 17:00 121 32 108/64 (79) 100 06/20/20 16:00 100 06/20/20 16:00 99.8 119 38 106/69 (81) 100 06/20/20 16:00 121 06/20/20 16:00 38 Mechanical Ventilator 100 06/20/20 16:00 Mechanical Ventilator Mechanical Ventilator 06/20/20 16:00 Mechanical Ventilator Mechanical Ventilator 06/20/20 15:04 120 34 100 06/20/20 15:00 38 Mechanical Ventilator 100 06/20/20 15:00 124 36 99/60 (73) 100 06/20/20 14:00 131 41 102/63 (76) 100 06/20/20 14:00 35 Mechanical Ventilator 100 06/20/20 13:00 132 37 89/43 (58) 98 06/20/20 13:00 38 Mechanical Ventilator 100 06/20/20 12:00 100.0 140 44 96/58 (71) 96 06/20/20 12:00 Mechanical Ventilator Mechanical Ventilator 06/20/20 12:00 38 Mechanical Ventilator 100 06/20/20 12:00 100 06/20/20 12:00 139 06/20/20 11:11 141 31 100 06/20/20 11:00 136 26 92/55 (67) 97 06/20/20 10:00 143 46 98/46 (63) 92 06/20/20 09:51 102.0 06/20/20 09:47 146 32 100 06/20/20 09:25 128 43 100 06/20/20 09:00 134 37 98/46 (63) 94 06/20/20 08:00 102.9 135 39 102/44 (63) 89 06/20/20 08:00 138 06/20/20 08:00 Mechanical Ventilator Mechanical Ventilator 06/20/20 08:00 100 06/20/20 08:00 100 06/20/20 07:08 134 38 100 06/20/20 07:00 128 35 147/89 (108) 06/20/20 06:00 110 27 06/20/20 06:00 123 38 139/84 (102) 0 06/20/20 05:00 117 36 145/80 (101) 95 06/20/20 04:00 99.5 105 32 147/87 (107) 95 06/20/20 04:00 Mechanical Ventilator Mechanical Ventilator 06/20/20 04:00 100 06/20/20 04:00 86 06/20/20 03:28 104 38 100 06/20/20 03:00 25 Mechanical Ventilator 100 06/20/20 03:00 113 34 161/87 (111) 93 06/20/20 02:00 96 34 132/75 (94) 100 06/20/20 02:00 30 100 06/20/20 01:00 26 Mechanical Ventilator 100 06/20/20 01:00 95 38 144/81 (102) 100 06/20/20 00:00 82 06/20/20 00:00 30 Mechanical Ventilator 100 06/20/20 00:00 100 06/20/20 00:00 Mechanical Ventilator Mechanical Ventilator 06/20/20 00:00 87 35 134/79 (97) 100 06/19/20 23:24 83 34 100 06/19/20 23:00 28 Mechanical Ventilator 100 06/19/20 23:00 92 38 145/82 (103) 99 06/19/20 22:06 28 Mechanical Ventilator 100 06/19/20 22:00 28 Mechanical Ventilator 100 06/19/20 22:00 93 36 143/71 (95) 98 06/19/20 21:00 86 39 133/65 (87) 97 06/19/20 21:00 28 Mechanical Ventilator 100 06/19/20 20:00 98.6 88 31 128/73 (91) 100 06/19/20 20:00 Mechanical Ventilator Mechanical Ventilator 06/19/20 20:00 24 Mechanical Ventilator 100 06/19/20 20:00 100 06/19/20 20:00 86 06/19/20 19:27 92 33 100 06/19/20 19:00 86 29 127/70 (89) 100 06/19/20 19:00 29 Mechanical Ventilator 100 06/19/20 18:00 31 Mechanical Ventilator 100 06/19/20 18:00 91 34 134/76 (95) 100 06/19/20 17:00 86 31 117/69 (85) 100 06/19/20 17:00 30 Mechanical Ventilator 100 06/19/20 16:00 80 06/19/20 16:00 83 30 127/71 (89) 96 06/19/20 16:00 98.7 83 30 127/71 (89) 96 06/19/20 16:00 31 Mechanical Ventilator 100 06/19/20 16:00 Mechanical Ventilator Mechanical Ventilator 06/19/20 16:00 100 06/19/20 15:30 84 34 100 06/19/20 15:00 32 Mechanical Ventilator 100 06/19/20 15:00 80 30 135/81 (99) 96 06/19/20 14:00 91 33 122/67 (85) 98 06/19/20 14:00 34 Mechanical Ventilator 100 06/19/20 13:01 35 Mechanical Ventilator 100 06/19/20 13:00 91 36 119/71 (87) 97 06/19/20 12:30 94 35 111/73 (86) 100 06/19/20 12:00 99 06/19/20 12:00 100.1 98 35 113/56 (75) 100 06/19/20 12:00 Mechanical Ventilator Mechanical Ventilator 06/19/20 12:00 35 Mechanical Ventilator 100 06/19/20 12:00 98 35 113/56 (75) 100 06/19/20 12:00 100 06/19/20 11:45 100.6 06/19/20 11:30 97 34 115/64 (81) 99 06/19/20 11:20 98 33 100 06/19/20 11:00 99 35 117/72 (87) 97 06/19/20 11:00 35 Mechanical Ventilator 100 06/19/20 10:30 98 35 120/67 (84) 98 06/19/20 10:00 35 Mechanical Ventilator 100 06/19/20 10:00 99 35 126/62 (83) 97 06/19/20 09:30 99 34 124/62 (82) 97 06/19/20 09:00 102 34 132/70 (90) 98 06/19/20 09:00 33 Mechanical Ventilator 100 06/19/20 08:30 34 Mechanical Ventilator 100 06/19/20 08:30 105 34 126/78 (94) 97 06/19/20 08:00 100 06/19/20 08:00 98 06/19/20 08:00 Mechanical Ventilator Mechanical Ventilator 06/19/20 08:00 100.7 100 33 139/61 (87) 98 06/19/20 08:00 33 Mechanical Ventilator 100 06/19/20 07:46 104 36 100 06/19/20 07:30 103 35 131/58 (82) 98 06/19/20 07:30 33 Mechanical Ventilator 100 Intake and Output 06/20/20 06/21/20 19:00 07:00 Intake Total 1329.092 ml 704 ml Output Total 710 ml 1020 ml Balance 619.092 ml -316 ml Free Water 90 ml IV Total 759.092 ml 44 ml Tube Feeding 480 ml 660 ml Output Urine Total 710 ml 820 ml Stool Total 200 ml # Bowel Movements 100 Labs Test 06/18/20 23:48 06/19/20 03:35 06/20/20 03:15 06/20/20 04:26 POC Whole Blood Glucose 147 MG/DL (74-106) White Blood Count 10.3 K/UL (4.8-10.8) 6.4 K/UL (4.8-10.8) Red Blood Count 2.82 M/UL (4.20-5.40) 3.25 M/UL (4.20-5.40) Hemoglobin 8.2 G/DL (12.0-16.0) 9.4 G/DL (12.0-16.0) Hematocrit 25.7 % (37.0-47.0) 30.8 % (37.0-47.0) Mean Corpuscular Volume 91 FL (80-99) 95 FL (80-99) Mean Corpuscular Hemoglobin 29.2 PG (27.0-31.0) 29.0 PG (27.0-31.0) Mean Corpuscular Hemoglobin Concent 32.0 G/DL (32.0-36.0) 30.6 G/DL (32.0-36.0) Red Cell Distribution Width 15.9 % (11.6-14.8) 15.6 % (11.6-14.8) Platelet Count 228 K/UL (150-450) 198 K/UL (150-450) Mean Platelet Volume 7.9 FL (6.5-10.1) 7.1 FL (6.5-10.1) Neutrophils (%) (Auto) 79.0 % (45.0-75.0) 57.0 % (45.0-75.0) Lymphocytes (%) (Auto) 12.9 % (20.0-45.0) 20.3 % (20.0-45.0) Monocytes (%) (Auto) 1.9 % (1.0-10.0) 8.1 % (1.0-10.0) Eosinophils (%) (Auto) 5.5 % (0.0-3.0) 8.1 % (0.0-3.0) Basophils (%) (Auto) 0.6 % (0.0-2.0) 6.6 % (0.0-2.0) Sodium Level 142 MMOL/L (136-145) 137 MMOL/L (136-145) Potassium Level 3.9 MMOL/L (3.5-5.1) 5.2 MMOL/L (3.5-5.1) Chloride Level 105 MMOL/L (98-107) 101 MMOL/L (98-107) Carbon Dioxide Level 33 MMOL/L (21-32) 31 MMOL/L (21-32) Anion Gap 4 mmol/L (5-15) 5 mmol/L (5-15) Blood Urea Nitrogen 21 mg/dL (7-18) 17 mg/dL (7-18) Creatinine 0.6 MG/DL (0.55-1.30) 0.6 MG/DL (0.55-1.30) Estimat Glomerular Filtration Rate > 60 mL/min (>60) > 60 mL/min (>60) Glucose Level 124 MG/DL (74-106) 167 MG/DL (74-106) Uric Acid 0.9 MG/DL (2.6-7.2) Calcium Level 8.6 MG/DL (8.5-10.1) 9.2 MG/DL (8.5-10.1) Phosphorus Level 2.3 MG/DL (2.5-4.9) 2.4 MG/DL (2.5-4.9) Magnesium Level 1.6 MG/DL (1.8-2.4) 1.5 MG/DL (1.8-2.4) Total Bilirubin 0.8 MG/DL (0.2-1.0) 0.9 MG/DL (0.2-1.0) Aspartate Amino Transf (AST/SGOT) 42 U/L (15-37) 44 U/L (15-37) Alanine Aminotransferase (ALT/SGPT) 26 U/L (12-78) 25 U/L (12-78) Alkaline Phosphatase 66 U/L (46-116) 85 U/L (46-116) C-Reactive Protein, Quantitative 8.8 mg/dL (0.00-0.90) 8.5 mg/dL (0.00-0.90) Total Protein 5.6 G/DL (6.4-8.2) 6.7 G/DL (6.4-8.2) Albumin 1.9 G/DL (3.4-5.0) 2.1 G/DL (3.4-5.0) Globulin 3.7 g/dL 4.6 g/dL Albumin/Globulin Ratio 0.5 (1.0-2.7) 0.5 (1.0-2.7) Pro-B-Type Natriuretic Peptide 1249 pg/mL (0-125) Test 06/20/20 13:12 06/20/20 17:35 06/21/20 00:33 06/21/20 03:20 POC Whole Blood Glucose 139 MG/DL (74-106) White Blood Count 8.5 K/UL (4.8-10.8) Red Blood Count 2.64 M/UL (4.20-5.40) Hemoglobin 8.1 G/DL (12.0-16.0) Hematocrit 24.6 % (37.0-47.0) Mean Corpuscular Volume 93 FL (80-99) Mean Corpuscular Hemoglobin 30.8 PG (27.0-31.0) Mean Corpuscular Hemoglobin Concent 33.0 G/DL (32.0-36.0) Red Cell Distribution Width 17.2 % (11.6-14.8) Platelet Count 192 K/UL (150-450) Mean Platelet Volume 7.4 FL (6.5-10.1) Neutrophils (%) (Auto) 80.7 % (45.0-75.0) Lymphocytes (%) (Auto) 13.8 % (20.0-45.0) Monocytes (%) (Auto) 2.8 % (1.0-10.0) Eosinophils (%) (Auto) 2.2 % (0.0-3.0) Basophils (%) (Auto) 0.4 % (0.0-2.0) Sodium Level 141 MMOL/L (136-145) Potassium Level 4.6 MMOL/L (3.5-5.1) Chloride Level 103 MMOL/L (98-107) Carbon Dioxide Level 35 MMOL/L (21-32) Anion Gap 3 mmol/L (5-15) Blood Urea Nitrogen 22 mg/dL (7-18) Creatinine 0.6 MG/DL (0.55-1.30) Estimat Glomerular Filtration Rate > 60 mL/min (>60) Glucose Level 88 MG/DL (74-106) Calcium Level 9.0 MG/DL (8.5-10.1) Phosphorus Level 1.6 MG/DL (2.5-4.9) Magnesium Level 2.3 MG/DL (1.8-2.4) Total Bilirubin 0.8 MG/DL (0.2-1.0) Aspartate Amino Transf (AST/SGOT) 36 U/L (15-37) Alanine Aminotransferase (ALT/SGPT) 21 U/L (12-78) Alkaline Phosphatase 61 U/L (46-116) C-Reactive Protein, Quantitative 43.8 mg/dL (0.00-0.90) Total Protein 6.0 G/DL (6.4-8.2) Albumin 1.8 G/DL (3.4-5.0) Globulin 4.2 g/dL Albumin/Globulin Ratio 0.4 (1.0-2.7) Height (Feet): 5 Height (Inches): 5.00 Weight (Pounds): 308 Objective GeNL: nv Pulm: vent++ CV: rrr Abd: soft, nt, nd Ext: no cce Myron Condon MD Jun 21, 2020 07:28
--- NOTE | 2020-06-21 07:41 | NUR ---
NURSE HAND-OFF REPORT: Latest Vital Signs: Temperature 102.1 , Pulse 136 , B/P 138 /67 , Respiratory Rate 42 , O2 SAT 100 , Mechanical Ventilator, O2 Flow Rate . Vital Sign Comment: FEBRILE 102 EKG Rhythm: Sinus Tachycardia Rhythm change?: Jesus TOLLIVER Notified?: Babs EWDARDS MD Response: Latest Meyers Fall Score: 70 Fall Risk: High Risk Safety Measures: Call light Within Reach, Bed Alarm Zone 1, Side Rails Side Rails x3, Bed position Low and Locked. Fall Precautions: Yellow Socks Report given to ARKEL Jennings.
--- NOTE | 2020-06-21 07:42 | NUR ---
NURSE NOTES: Received report from RAKEL Sims. Pt HR elevated in 130s at this time. BP WNL. RR WNL. Temp 102. cooling measures in place. Tylenol has been given per prior nurse. Pt showing no sign of distress. Intubated and sedated. Appears comfortable. Tolerating vent setting. SpO2 WNL on Fio2 80%. OGT in place running tube feeding with no sign of distress. Skin intact. Rectal tube in place with light brown output. Phos low this AM. Will ensure MD aware.
[2020-06-21] MEDS: Pantoprazole Inj IVP SCH ×2 (08:41→20:06)
[2020-06-21] MEDS: Docusate 100mg/10ml Liq GT SCH ×2 (08:44→20:07)
[2020-06-21] MEDS: Enoxaparin 40mg Inj SUBQ SCH (08:44)
--- NOTE | 2020-06-21 09:04 | General Progress Note ---
Subjective Constitutional: Reports: weakness Allergies: Coded Allergies: No Known Allergies (Unverified , 05/28/20) All Systems: reviewed and negative except above Subjective intubated sedated ng in icu Objective Last 24 Hour Vital Signs Date Time Temp Pulse Resp B/P (MAP) Pulse Ox O2 Delivery O2 Flow Rate FiO2 06/21/20 07:30 136 42 138/67 (90) 100 06/21/20 07:00 134 41 133/62 (85) 96 06/21/20 06:30 135 45 06/21/20 06:27 24 Mechanical Ventilator 80 06/21/20 06:15 102.1 06/21/20 06:00 30 80 06/21/20 06:00 124 44 145/88 (107) 100 06/21/20 05:00 115 29 132/62 (85) 99 06/21/20 05:00 32 Endotracheal Tube 80 06/21/20 04:00 122 06/21/20 04:00 80 06/21/20 04:00 20 Mechanical Ventilator 90 06/21/20 04:00 101.8 113 28 99/55 (70) 97 06/21/20 04:00 Mechanical Ventilator Mechanical Ventilator 06/21/20 03:29 117 30 80 06/21/20 03:00 24 90 06/21/20 03:00 119 32 115/76 (89) 99 06/21/20 02:00 24 90 06/21/20 02:00 116 31 108/75 (86) 98 06/21/20 01:00 31 80 06/21/20 01:00 114 31 107/62 (77) 99 06/21/20 00:00 112 28 102/62 (75) 98 06/21/20 00:00 30 Endotracheal Tube 80 06/21/20 00:00 Mechanical Ventilator Mechanical Ventilator 06/21/20 00:00 80 06/21/20 00:00 115 06/20/20 23:29 113 29 80 06/20/20 23:00 116 30 102/81 (88) 100 06/20/20 23:00 24 90 06/20/20 22:00 20 Endotracheal Tube 90 06/20/20 22:00 115 26 92/60 (71) 100 06/20/20 21:52 100.2 06/20/20 21:00 28 Endotracheal Tube 90 06/20/20 21:00 100.2 120 44 97/50 (66) 99 06/20/20 20:00 Mechanical Ventilator Mechanical Ventilator 06/20/20 20:00 120 44 106/65 (79) 100 06/20/20 20:00 114 06/20/20 20:00 22 Endotracheal Tube 90 06/20/20 20:00 100 06/20/20 19:48 119 28 90 06/20/20 19:00 101.5 116 39 100/63 (75) 100 06/20/20 19:00 28 Endotracheal Tube 90 06/20/20 18:00 26 Mechanical Ventilator 100 06/20/20 18:00 117 36 97/64 (75) 100 06/20/20 17:00 32 Mechanical Ventilator 100 06/20/20 17:00 121 32 108/64 (79) 100 06/20/20 16:00 100 06/20/20 16:00 99.8 119 38 106/69 (81) 100 06/20/20 16:00 121 06/20/20 16:00 38 Mechanical Ventilator 100 06/20/20 16:00 Mechanical Ventilator Mechanical Ventilator 06/20/20 16:00 Mechanical Ventilator Mechanical Ventilator 06/20/20 15:04 120 34 100 06/20/20 15:00 38 Mechanical Ventilator 100 06/20/20 15:00 124 36 99/60 (73) 100 06/20/20 14:00 131 41 102/63 (76) 100 06/20/20 14:00 35 Mechanical Ventilator 100 06/20/20 13:00 132 37 89/43 (58) 98 06/20/20 13:00 38 Mechanical Ventilator 100 06/20/20 12:00 100.0 140 44 96/58 (71) 96 06/20/20 12:00 Mechanical Ventilator Mechanical Ventilator 06/20/20 12:00 38 Mechanical Ventilator 100 06/20/20 12:00 100 06/20/20 12:00 139 06/20/20 11:11 141 31 100 06/20/20 11:00 136 26 92/55 (67) 97 06/20/20 10:00 143 46 98/46 (63) 92 06/20/20 09:51 102.0 06/20/20 09:47 146 32 100 06/20/20 09:25 128 43 100 Intake and Output 06/20/20 06/21/20 19:00 07:00 Intake Total 1329.092 ml 764 ml Output Total 710 ml 1050 ml Balance 619.092 ml -286 ml Free Water 90 ml IV Total 759.092 ml 44 ml Tube Feeding 480 ml 720 ml Output Urine Total 710 ml 850 ml Stool Total 200 ml # Bowel Movements 100 Laboratory Tests 06/20/20 13:12: POC Whole Blood Glucose [Pending] 06/20/20 17:35: POC Whole Blood Glucose [Pending] 06/21/20 00:33: POC Whole Blood Glucose 139H 06/21/20 03:20: White Blood Count 8.5, Red Blood Count 2.64L, Hemoglobin 8.1L, Hematocrit 24.6L, Mean Corpuscular Volume 93, Mean Corpuscular Hemoglobin 30.8, Mean Corpuscular Hemoglobin Concent 33.0, Red Cell Distribution Width 17.2H, Platelet Count 192, Mean Platelet Volume 7.4, Neutrophils (%) (Auto) 80.7H, Lymphocytes (%) (Auto) 13.8L, Monocytes (%) (Auto) 2.8, Eosinophils (%) (Auto) 2.2, Basophils (%) (Auto) 0.4, Sodium Level 141, Potassium Level 4.6, Chloride Level 103, Carbon Dioxide Level 35H, Anion Gap 3L, Blood Urea Nitrogen 22H, Creatinine 0.6, Estimat Glomerular Filtration Rate > 60, Glucose Level 88, Calcium Level 9.0, Phosphorus Level 1.6L, Magnesium Level 2.3, Total Bilirubin 0.8, Aspartate Amino Transf (AST/SGOT) 36, Alanine Aminotransferase (ALT/SGPT) 21, Alkaline Phosphatase 61, C-Reactive Protein, Quantitative 43.8H, Total Protein 6.0L, Albumin 1.8L, Globulin 4.2, Albumin/Globulin Ratio 0.4L Height (Feet): 5 Height (Inches): 5.00 Weight (Pounds): 308 General Appearance: lethargic EENT: normal ENT inspection Neck: normal alignment Cardiovascular: normal peripheral pulses, normal rate, regular rhythm Respiratory/Chest: chest wall non-tender, lungs clear, normal breath sounds Abdomen: normal bowel sounds, non tender, soft Extremities: normal inspection Edema: no edema noted Arm (L), no edema noted Arm (R), no edema noted Leg (L), no edema noted Leg (R), no edema noted Pedal (L), no edema noted Pedal (R), no edema noted Generalized Neurologic: motor weakness Skin: normal pigmentation, warm/dry Assessment/Plan Problem List: (1) Hypoxia ICD Codes: R09.02 - Hypoxemia SNOMED: 917350845 (2) Respiratory failure ICD Codes: J96.90 - Respiratory failure, unspecified, unspecified whether with hypoxia or hypercapnia SNOMED: 866328248 (3) Respiratory distress ICD Codes: R06.03 - Acute respiratory distress; J12.82 - Pneumonia due to coronavirus disease 2019 SNOMED: 363882040 (4) Pneumonia due to COVID-19 virus ICD Codes: U07.1 - COVID-19; J12.82 - Pneumonia due to coronavirus disease 2019 SNOMED: 723912906665241297 Status: unchanged Assessment/Plan: vent abx id pulm f/u cbc bmp am Tank Del CidEsther Jun 21, 2020 09:04
--- NOTE | 2020-06-21 10:09 | Pulmonology Progress Note ---
Subjective ROS Limited/Unobtainable: Yes Interval Events: Remains intubated Constitutional: Reports: fever, other - T=[id number] HEENT: Repors: no symptoms Respiratory: Reports: no symptoms Cardiovascular: Reports: no symptoms Gastrointestinal/Abdominal: Reports: no symptoms Genitourinary: Reports: no symptoms Allergies: Coded Allergies: No Known Allergies (Unverified , 05/28/20) All Systems: reviewed and negative except above Objective Last 24 Hour Vital Signs Date Time Temp Pulse Resp B/P (MAP) Pulse Ox O2 Delivery O2 Flow Rate FiO2 06/21/20 07:30 136 42 138/67 (90) 100 06/21/20 07:00 134 41 133/62 (85) 96 06/21/20 06:30 135 45 06/21/20 06:27 24 Mechanical Ventilator 80 06/21/20 06:15 102.1 06/21/20 06:00 30 80 06/21/20 06:00 124 44 145/88 (107) 100 06/21/20 05:00 115 29 132/62 (85) 99 06/21/20 05:00 32 Endotracheal Tube 80 06/21/20 04:00 122 06/21/20 04:00 80 06/21/20 04:00 20 Mechanical Ventilator 90 06/21/20 04:00 101.8 113 28 99/55 (70) 97 06/21/20 04:00 Mechanical Ventilator Mechanical Ventilator 06/21/20 03:29 117 30 80 06/21/20 03:00 24 90 06/21/20 03:00 119 32 115/76 (89) 99 06/21/20 02:00 24 90 06/21/20 02:00 116 31 108/75 (86) 98 06/21/20 01:00 31 80 06/21/20 01:00 114 31 107/62 (77) 99 06/21/20 00:00 112 28 102/62 (75) 98 06/21/20 00:00 30 Endotracheal Tube 80 06/21/20 00:00 Mechanical Ventilator Mechanical Ventilator 06/21/20 00:00 80 06/21/20 00:00 115 06/20/20 23:29 113 29 80 06/20/20 23:00 116 30 102/81 (88) 100 06/20/20 23:00 24 90 06/20/20 22:00 20 Endotracheal Tube 90 06/20/20 22:00 115 26 92/60 (71) 100 06/20/20 21:52 100.2 06/20/20 21:00 28 Endotracheal Tube 90 06/20/20 21:00 100.2 120 44 97/50 (66) 99 06/20/20 20:00 Mechanical Ventilator Mechanical Ventilator 06/20/20 20:00 120 44 106/65 (79) 100 06/20/20 20:00 114 06/20/20 20:00 22 Endotracheal Tube 90 06/20/20 20:00 100 06/20/20 19:48 119 28 90 06/20/20 19:00 101.5 116 39 100/63 (75) 100 06/20/20 19:00 28 Endotracheal Tube 90 06/20/20 18:00 26 Mechanical Ventilator 100 06/20/20 18:00 117 36 97/64 (75) 100 06/20/20 17:00 32 Mechanical Ventilator 100 06/20/20 17:00 121 32 108/64 (79) 100 06/20/20 16:00 100 06/20/20 16:00 99.8 119 38 106/69 (81) 100 06/20/20 16:00 121 06/20/20 16:00 38 Mechanical Ventilator 100 06/20/20 16:00 Mechanical Ventilator Mechanical Ventilator 06/20/20 16:00 Mechanical Ventilator Mechanical Ventilator 06/20/20 15:04 120 34 100 06/20/20 15:00 38 Mechanical Ventilator 100 06/20/20 15:00 124 36 99/60 (73) 100 06/20/20 14:00 131 41 102/63 (76) 100 06/20/20 14:00 35 Mechanical Ventilator 100 06/20/20 13:00 132 37 89/43 (58) 98 06/20/20 13:00 38 Mechanical Ventilator 100 06/20/20 12:00 100.0 140 44 96/58 (71) 96 06/20/20 12:00 Mechanical Ventilator Mechanical Ventilator 06/20/20 12:00 38 Mechanical Ventilator 100 06/20/20 12:00 100 06/20/20 12:00 139 06/20/20 11:11 141 31 100 06/20/20 11:00 136 26 92/55 (67) 97 Intake and Output 06/20/20 06/21/20 19:00 07:00 Intake Total 1329.092 ml 764 ml Output Total 710 ml 1050 ml Balance 619.092 ml -286 ml Free Water 90 ml IV Total 759.092 ml 44 ml Tube Feeding 480 ml 720 ml Output Urine Total 710 ml 850 ml Stool Total 200 ml # Bowel Movements 100 General Appearance: no acute distress HEENT: normocephalic Respiratory: chest wall non-tender Cardiovascular: normal peripheral pulses Abdomen: normal bowel sounds Laboratory Tests 06/20/20 13:12: POC Whole Blood Glucose [Pending] 06/20/20 17:35: POC Whole Blood Glucose [Pending] 06/21/20 00:33: POC Whole Blood Glucose 139H 06/21/20 03:20: White Blood Count 8.5, Red Blood Count 2.64L, Hemoglobin 8.1L, Hematocrit 24.6L, Mean Corpuscular Volume 93, Mean Corpuscular Hemoglobin 30.8, Mean Corpuscular Hemoglobin Concent 33.0, Red Cell Distribution Width 17.2H, Platelet Count 192, Mean Platelet Volume 7.4, Neutrophils (%) (Auto) 80.7H, Lymphocytes (%) (Auto) 13.8L, Monocytes (%) (Auto) 2.8, Eosinophils (%) (Auto) 2.2, Basophils (%) (Auto) 0.4, Sodium Level 141, Potassium Level 4.6, Chloride Level 103, Carbon Dioxide Level 35H, Anion Gap 3L, Blood Urea Nitrogen 22H, Creatinine 0.6, Estimat Glomerular Filtration Rate > 60, Glucose Level 88, Calcium Level 9.0, Phosphorus Level 1.6L, Magnesium Level 2.3, Total Bilirubin 0.8, Aspartate Amino Transf (AST/SGOT) 36, Alanine Aminotransferase (ALT/SGPT) 21, Alkaline Phosphatase 61, C-Reactive Protein, Quantitative 43.8H, Total Protein 6.0L, Albumin 1.8L, Globulin 4.2, Albumin/Globulin Ratio 0.4L Current Medications Medications (Trade) Dose Ordered Sig/Zelda Route PRN Reason Start Time Stop Time Status Last Admin Dose Admin Acetaminophen (Tylenol) 650 mg Q4H PRN NG Temp >100.5 05/31/20 21:45 06/30/20 21:44 06/21/20 05:45 Acetaminophen (Tylenol) 650 mg Q6H PRN NG Mild Pain (Pain Scale 1-3) 06/06/20 18:00 07/06/20 17:59 06/13/20 23:10 Chlorhexidine Gluconate (Inna-Hex 2%) 1 applic DAILY@2000 TOPIC 05/30/20 20:00 08/28/20 19:59 06/20/20 21:17 Dextrose (Dextrose 50%) 25 ml Q30M PRN IV Hypoglycemia 06/05/20 10:45 09/03/20 10:44 Dextrose (Dextrose 50%) 50 ml Q30M PRN IV Hypoglycemia 06/05/20 10:45 09/03/20 10:44 Docusate Sodium (Colace) 100 mg Q12HR GT 06/07/20 21:00 07/07/20 20:59 06/20/20 21:18 Enoxaparin Sodium (Lovenox) 40 mg DAILY SUBQ 05/30/20 10:00 08/28/20 09:59 06/21/20 08:44 Insulin Aspart (NovoLOG) EVERY 6 HOURS SUBQ 06/07/20 00:00 09/03/20 11:59 06/20/20 17:44 Insulin Aspart (NovoLOG) 10 units EVERY 6 HOURS SUBQ 06/21/20 12:00 09/04/20 08:59 Midazolam HCl 100 mg/Dextrose 200 ml @ 0 mls/hr Q24H PRN IV sedation 06/19/20 11:46 06/21/20 11:45 06/21/20 06:27 Midodrine (Pro-Amatine) 10 mg Q8HR ORAL 06/14/20 14:00 09/12/20 13:59 06/21/20 05:45 Pantoprazole (Protonix) 40 mg Q12HR IVP 06/13/20 21:00 07/03/20 08:59 06/21/20 08:41 Phosphorus (Phospha 250 Neutral) 500 mg THREE TIMES A DAY NG 06/21/20 09:30 07/21/20 09:29 Polyethylene Glycol (Miralax) 17 gm BEDTIME GT 06/07/20 21:00 07/07/20 20:59 06/17/20 21:02 Sodium Chloride 1,000 ml @ 50 mls/hr Q20H IV 06/06/20 08:00 07/06/20 07:59 06/21/20 08:40 Assessment/Plan Assessment/Plan 1. COVID-19 pneumonia -Intubated 05/28/20 - We will continue broad-spectrum antibiotics. - On solumedrol -On Rocephin -Continue monitoring SaO2 and keep it >92% -Continue PEEP 10->8; - Peak airway pressures high; approx 48 now - FiO2 100% -> 90 ->80->60 ->40 ->80%; -will continue OGT feeding -Continue sedation -Need to keep patient completely sedated. 2. Hyponatremia -Per primary MD 3. Elevated inflammatory markers - has high D dimer; Lovenox on hold due to hematuria 4. Decrease PEEP Continue weaning efforts May need trach Discussed with surgery Javier Nava MD Jun 21, 2020 10:09
--- NOTE | 2020-06-21 10:15 | NUR ---
NURSE NOTES: Dr Nava rounded on the pt. Update given.
[2020-06-21] MEDS: Phospha 250 Neutral tab NG SCH ×3 (10:17→17:29)
[2020-06-21] MEDS ORDERED: Midazolam HCl 50mg/10ml vial 50 MG in NS 90 ML IV PRN (11:30)
--- NOTE | 2020-06-21 11:38 | Infectious Diseases Prog Note ---
Assessment/Plan Assessment/Plan antibiotics : none A 1. covid 19 pneumonia on 80 % Fi O2 with 100 % saturation s/p remdesivir s/p solumedrol 2. respiratory failure 3. serratia pneumonia P 1. continue off antibiotics 2. continue isolation Subjective ROS Limited/Unobtainable: Yes Allergies: Coded Allergies: No Known Allergies (Unverified , 05/28/20) Objective Last 24 Hour Vital Signs Date Time Temp Pulse Resp B/P (MAP) Pulse Ox O2 Delivery O2 Flow Rate FiO2 06/21/20 07:30 136 42 138/67 (90) 100 06/21/20 07:00 134 41 133/62 (85) 96 06/21/20 06:30 135 45 06/21/20 06:27 24 Mechanical Ventilator 80 06/21/20 06:15 102.1 06/21/20 06:00 30 80 06/21/20 06:00 124 44 145/88 (107) 100 06/21/20 05:00 115 29 132/62 (85) 99 06/21/20 05:00 32 Endotracheal Tube 80 06/21/20 04:00 122 06/21/20 04:00 80 06/21/20 04:00 20 Mechanical Ventilator 90 06/21/20 04:00 101.8 113 28 99/55 (70) 97 06/21/20 04:00 Mechanical Ventilator Mechanical Ventilator 06/21/20 03:29 117 30 80 06/21/20 03:00 24 90 06/21/20 03:00 119 32 115/76 (89) 99 06/21/20 02:00 24 90 06/21/20 02:00 116 31 108/75 (86) 98 06/21/20 01:00 31 80 06/21/20 01:00 114 31 107/62 (77) 99 06/21/20 00:00 112 28 102/62 (75) 98 06/21/20 00:00 30 Endotracheal Tube 80 06/21/20 00:00 Mechanical Ventilator Mechanical Ventilator 06/21/20 00:00 80 06/21/20 00:00 115 06/20/20 23:29 113 29 80 06/20/20 23:00 116 30 102/81 (88) 100 06/20/20 23:00 24 90 06/20/20 22:00 20 Endotracheal Tube 90 06/20/20 22:00 115 26 92/60 (71) 100 06/20/20 21:52 100.2 06/20/20 21:00 28 Endotracheal Tube 90 06/20/20 21:00 100.2 120 44 97/50 (66) 99 06/20/20 20:00 Mechanical Ventilator Mechanical Ventilator 06/20/20 20:00 120 44 106/65 (79) 100 06/20/20 20:00 114 06/20/20 20:00 22 Endotracheal Tube 90 06/20/20 20:00 100 06/20/20 19:48 119 28 90 06/20/20 19:00 101.5 116 39 100/63 (75) 100 06/20/20 19:00 28 Endotracheal Tube 90 06/20/20 18:00 26 Mechanical Ventilator 100 06/20/20 18:00 117 36 97/64 (75) 100 06/20/20 17:00 32 Mechanical Ventilator 100 06/20/20 17:00 121 32 108/64 (79) 100 06/20/20 16:00 100 06/20/20 16:00 99.8 119 38 106/69 (81) 100 06/20/20 16:00 121 06/20/20 16:00 38 Mechanical Ventilator 100 06/20/20 16:00 Mechanical Ventilator Mechanical Ventilator 06/20/20 16:00 Mechanical Ventilator Mechanical Ventilator 06/20/20 15:04 120 34 100 06/20/20 15:00 38 Mechanical Ventilator 100 06/20/20 15:00 124 36 99/60 (73) 100 06/20/20 14:00 131 41 102/63 (76) 100 06/20/20 14:00 35 Mechanical Ventilator 100 06/20/20 13:00 132 37 89/43 (58) 98 06/20/20 13:00 38 Mechanical Ventilator 100 06/20/20 12:00 100.0 140 44 96/58 (71) 96 06/20/20 12:00 Mechanical Ventilator Mechanical Ventilator 06/20/20 12:00 38 Mechanical Ventilator 100 06/20/20 12:00 100 06/20/20 12:00 139 Height (Feet): 5 Height (Inches): 5.00 Weight (Pounds): 308 HEENT: other - intubated Laboratory Tests Test 06/20/20 13:12 06/20/20 17:35 06/21/20 00:33 06/21/20 03:20 POC Whole Blood Glucose Pending Pending 139 MG/DL (74-106) H White Blood Count 8.5 K/UL (4.8-10.8) Red Blood Count 2.64 M/UL (4.20-5.40) L Hemoglobin 8.1 G/DL (12.0-16.0) L Hematocrit 24.6 % (37.0-47.0) L Mean Corpuscular Volume 93 FL (80-99) Mean Corpuscular Hemoglobin 30.8 PG (27.0-31.0) Mean Corpuscular Hemoglobin Concent 33.0 G/DL (32.0-36.0) Red Cell Distribution Width 17.2 % (11.6-14.8) H Platelet Count 192 K/UL (150-450) Mean Platelet Volume 7.4 FL (6.5-10.1) Neutrophils (%) (Auto) 80.7 % (45.0-75.0) H Lymphocytes (%) (Auto) 13.8 % (20.0-45.0) L Monocytes (%) (Auto) 2.8 % (1.0-10.0) Eosinophils (%) (Auto) 2.2 % (0.0-3.0) Basophils (%) (Auto) 0.4 % (0.0-2.0) Sodium Level 141 MMOL/L (136-145) Potassium Level 4.6 MMOL/L (3.5-5.1) Chloride Level 103 MMOL/L (98-107) Carbon Dioxide Level 35 MMOL/L (21-32) H Anion Gap 3 mmol/L (5-15) L Blood Urea Nitrogen 22 mg/dL (7-18) H Creatinine 0.6 MG/DL (0.55-1.30) Estimat Glomerular Filtration Rate > 60 mL/min (>60) Glucose Level 88 MG/DL (74-106) Calcium Level 9.0 MG/DL (8.5-10.1) Phosphorus Level 1.6 MG/DL (2.5-4.9) L Magnesium Level 2.3 MG/DL (1.8-2.4) Total Bilirubin 0.8 MG/DL (0.2-1.0) Aspartate Amino Transf (AST/SGOT) 36 U/L (15-37) Alanine Aminotransferase (ALT/SGPT) 21 U/L (12-78) Alkaline Phosphatase 61 U/L (46-116) C-Reactive Protein, Quantitative 43.8 mg/dL (0.00-0.90) H Total Protein 6.0 G/DL (6.4-8.2) L Albumin 1.8 G/DL (3.4-5.0) L Globulin 4.2 g/dL Albumin/Globulin Ratio 0.4 (1.0-2.7) L Current Medications Medications (Trade) Dose Ordered Sig/Zelda Route PRN Reason Start Time Stop Time Status Last Admin Dose Admin Acetaminophen (Tylenol) 650 mg Q4H PRN NG Temp >100.5 05/31/20 21:45 06/30/20 21:44 06/21/20 05:45 Acetaminophen (Tylenol) 650 mg Q6H PRN NG Mild Pain (Pain Scale 1-3) 06/06/20 18:00 07/06/20 17:59 06/13/20 23:10 Chlorhexidine Gluconate (Inna-Hex 2%) 1 applic DAILY@2000 TOPIC 05/30/20 20:00 08/28/20 19:59 06/20/20 21:17 Dextrose (Dextrose 50%) 25 ml Q30M PRN IV Hypoglycemia 06/05/20 10:45 09/03/20 10:44 Dextrose (Dextrose 50%) 50 ml Q30M PRN IV Hypoglycemia 06/05/20 10:45 09/03/20 10:44 Docusate Sodium (Colace) 100 mg Q12HR GT 06/07/20 21:00 07/07/20 20:59 06/20/20 21:18 Enoxaparin Sodium (Lovenox) 40 mg DAILY SUBQ 05/30/20 10:00 08/28/20 09:59 06/21/20 08:44 Insulin Aspart (NovoLOG) EVERY 6 HOURS SUBQ 06/07/20 00:00 09/03/20 11:59 06/20/20 17:44 Insulin Aspart (NovoLOG) 10 units EVERY 6 HOURS SUBQ 06/21/20 12:00 09/04/20 08:59 Midazolam HCl 100 mg/Dextrose 200 ml @ 0 mls/hr Q24H PRN IV sedation 06/19/20 11:46 06/21/20 11:45 06/21/20 06:27 Midodrine (Pro-Amatine) 10 mg Q8HR ORAL 06/14/20 14:00 09/12/20 13:59 06/21/20 05:45 Pantoprazole (Protonix) 40 mg Q12HR IVP 06/13/20 21:00 07/03/20 08:59 06/21/20 08:41 Phosphorus (Phospha 250 Neutral) 500 mg THREE TIMES A DAY NG 06/21/20 09:30 07/21/20 09:29 06/21/20 10:17 Polyethylene Glycol (Miralax) 17 gm BEDTIME GT 06/07/20 21:00 07/07/20 20:59 06/17/20 21:02 Sodium Chloride 1,000 ml @ 50 mls/hr Q20H IV 06/06/20 08:00 07/06/20 07:59 06/21/20 08:40 Fili Mcelroy MD Jun 21, 2020 11:38
--- NOTE | 2020-06-21 12:00 | NUR ---
NURSE NOTES: Pt WOB increased. Sedation increased to calm down her breathing. All other VS stable. Temp coming down, now 100.6. Will continue to monitor.
--- NOTE | 2020-06-21 12:13 | Nephrology Progress Note ---
Assessment/Plan Problem List: (1) DEVENDRA (acute kidney injury) (2) Morbid obesity (3) Diabetes mellitus out of control (4) Pneumonia due to COVID-19 virus (5) Respiratory failure Assessment Acute renal failure Obstructive uropathy, clogged Lennon Respiratory failure COVID-19 pneumonia Morbid obesity Plan June 21. Labs reviewed. Abnormal electrolyte addressed. Full code. Remains on ventilator. Medication list reviewed. Continue per pulmonary management. DC IV fluid, resume Lasix daily, check chest x-ray. June 20: Labs reviewed. Abnormal electrolytes. Patient remains full code. Continue per consultants. Noted and addressed June 19: Labs reviewed. Abnormal electrolytes noted and addressed. Remains intubated on ventilator. Remains full code. June 18: Labs reviewed. Remains intubated on ventilator. Full code. Abnormal electrolyte addressed. Continue as is. June 17: Labs reviewed. Abnormal electrolytes addressed. Patient remains full code and intubated on ventilator. Continue per consultants. Renal parameters are within normal limits. June 16: Labs reviewed. Potassium chloride replaced. Remains full code. Remains intubated on ventilator. Continue per consultants. Continue to monitor renal parameters. June 15: Labs reviewed. Serum creatinine 1. Stable from renal standpoint to view. Continue per consultants. June 14: Labs reviewed. Full code. Serum creatinine of 3.5 down to 1.4. Low potassium addressed. Continue per current treatment plan. Continue to monitor renal parameters. Midodrine started. Albumin bolus given. Previously: DC Lasix drip Increase Protonix dose Monitor renal parameters, electrolytes Per orders Subjective ROS Limited/Unobtainable: Yes Objective Objective Last 24 Hour Vital Signs Date Time Temp Pulse Resp B/P (MAP) Pulse Ox O2 Delivery O2 Flow Rate FiO2 06/21/20 07:30 136 42 138/67 (90) 100 06/21/20 07:00 134 41 133/62 (85) 96 06/21/20 06:30 135 45 06/21/20 06:27 24 Mechanical Ventilator 80 06/21/20 06:15 102.1 06/21/20 06:00 30 80 06/21/20 06:00 124 44 145/88 (107) 100 06/21/20 05:00 115 29 132/62 (85) 99 06/21/20 05:00 32 Endotracheal Tube 80 06/21/20 04:00 122 06/21/20 04:00 80 1/29/21 04:00 20 Mechanical Ventilator 90 06/21/20 04:00 101.8 113 28 99/55 (70) 97 06/21/20 04:00 Mechanical Ventilator Mechanical Ventilator 06/21/20 03:29 117 30 80 06/21/20 03:00 24 90 06/21/20 03:00 119 32 115/76 (89) 99 06/21/20 02:00 24 90 06/21/20 02:00 116 31 108/75 (86) 98 06/21/20 01:00 31 80 06/21/20 01:00 114 31 107/62 (77) 99 06/21/20 00:00 112 28 102/62 (75) 98 06/21/20 00:00 30 Endotracheal Tube 80 06/21/20 00:00 Mechanical Ventilator Mechanical Ventilator 06/21/20 00:00 80 06/21/20 00:00 115 06/20/20 23:29 113 29 80 06/20/20 23:00 116 30 102/81 (88) 100 06/20/20 23:00 24 90 06/20/20 22:00 20 Endotracheal Tube 90 06/20/20 22:00 115 26 92/60 (71) 100 06/20/20 21:52 100.2 06/20/20 21:00 28 Endotracheal Tube 90 06/20/20 21:00 100.2 120 44 97/50 (66) 99 06/20/20 20:00 Mechanical Ventilator Mechanical Ventilator 06/20/20 20:00 120 44 106/65 (79) 100 06/20/20 20:00 114 06/20/20 20:00 22 Endotracheal Tube 90 06/20/20 20:00 100 06/20/20 19:48 119 28 90 06/20/20 19:00 101.5 116 39 100/63 (75) 100 06/20/20 19:00 28 Endotracheal Tube 90 06/20/20 18:00 26 Mechanical Ventilator 100 06/20/20 18:00 117 36 97/64 (75) 100 06/20/20 17:00 32 Mechanical Ventilator 100 06/20/20 17:00 121 32 108/64 (79) 100 06/20/20 16:00 100 06/20/20 16:00 99.8 119 38 106/69 (81) 100 06/20/20 16:00 121 06/20/20 16:00 38 Mechanical Ventilator 100 06/20/20 16:00 Mechanical Ventilator Mechanical Ventilator 06/20/20 16:00 Mechanical Ventilator Mechanical Ventilator 06/20/20 15:04 120 34 100 06/20/20 15:00 38 Mechanical Ventilator 100 06/20/20 15:00 124 36 99/60 (73) 100 06/20/20 14:00 131 41 102/63 (76) 100 06/20/20 14:00 35 Mechanical Ventilator 100 06/20/20 13:00 132 37 89/43 (58) 98 06/20/20 13:00 38 Mechanical Ventilator 100 Intake and Output 06/20/20 06/21/20 19:00 07:00 Intake Total 1329.092 ml 764 ml Output Total 710 ml 1050 ml Balance 619.092 ml -286 ml Free Water 90 ml IV Total 759.092 ml 44 ml Tube Feeding 480 ml 720 ml Output Urine Total 710 ml 850 ml Stool Total 200 ml # Bowel Movements 100 Current Medications Medications (Trade) Dose Ordered Sig/Zelda Route PRN Reason Start Time Stop Time Status Last Admin Dose Admin Acetaminophen (Tylenol) 650 mg Q4H PRN NG Temp >100.5 05/31/20 21:45 06/30/20 21:44 06/21/20 05:45 Acetaminophen (Tylenol) 650 mg Q6H PRN NG Mild Pain (Pain Scale 1-3) 06/06/20 18:00 07/06/20 17:59 06/13/20 23:10 Chlorhexidine Gluconate (Inna-Hex 2%) 1 applic DAILY@2000 TOPIC 05/30/20 20:00 08/28/20 19:59 06/20/20 21:17 Dextrose (Dextrose 50%) 25 ml Q30M PRN IV Hypoglycemia 06/05/20 10:45 09/03/20 10:44 Dextrose (Dextrose 50%) 50 ml Q30M PRN IV Hypoglycemia 06/05/20 10:45 09/03/20 10:44 Docusate Sodium (Colace) 100 mg Q12HR GT 06/07/20 21:00 07/07/20 20:59 06/20/20 21:18 Enoxaparin Sodium (Lovenox) 40 mg DAILY SUBQ 05/30/20 10:00 08/28/20 09:59 06/21/20 08:44 Insulin Aspart (NovoLOG) EVERY 6 HOURS SUBQ 06/07/20 00:00 09/03/20 11:59 06/20/20 17:44 Insulin Aspart (NovoLOG) 10 units EVERY 6 HOURS SUBQ 06/21/20 12:00 09/04/20 08:59 Midodrine (Pro-Amatine) 10 mg Q8HR ORAL 06/14/20 14:00 09/12/20 13:59 06/21/20 05:45 Pantoprazole (Protonix) 40 mg Q12HR IVP 06/13/20 21:00 07/03/20 08:59 06/21/20 08:41 Phosphorus (Phospha 250 Neutral) 500 mg THREE TIMES A DAY NG 06/21/20 09:30 07/21/20 09:29 06/21/20 12:10 Polyethylene Glycol (Miralax) 17 gm BEDTIME GT 06/07/20 21:00 07/07/20 20:59 06/17/20 21:02 Sodium Chloride 1,000 ml @ 50 mls/hr Q20H IV 06/06/20 08:00 07/06/20 07:59 06/21/20 08:40 Laboratory Tests 06/20/20 13:12: POC Whole Blood Glucose [Pending] 06/20/20 17:35: POC Whole Blood Glucose [Pending] 06/21/20 00:33: POC Whole Blood Glucose 139H 06/21/20 03:20: White Blood Count 8.5, Red Blood Count 2.64L, Hemoglobin 8.1L, Hematocrit 24.6L, Mean Corpuscular Volume 93, Mean Corpuscular Hemoglobin 30.8, Mean Corpuscular Hemoglobin Concent 33.0, Red Cell Distribution Width 17.2H, Platelet Count 192, Mean Platelet Volume 7.4, Neutrophils (%) (Auto) 80.7H, Lymphocytes (%) (Auto) 13.8L, Monocytes (%) (Auto) 2.8, Eosinophils (%) (Auto) 2.2, Basophils (%) (Auto) 0.4, Sodium Level 141, Potassium Level 4.6, Chloride Level 103, Carbon Dioxide Level 35H, Anion Gap 3L, Blood Urea Nitrogen 22H, Creatinine 0.6, Estimat Glomerular Filtration Rate > 60, Glucose Level 88, Calcium Level 9.0, Phosphorus Level 1.6L, Magnesium Level 2.3, Total Bilirubin 0.8, Aspartate Amino Transf (AST/SGOT) 36, Alanine Aminotransferase (ALT/SGPT) 21, Alkaline Phosphatase 61, C-Reactive Protein, Quantitative 43.8H, Total Protein 6.0L, Albumin 1.8L, Globulin 4.2, Albumin/Globulin Ratio 0.4L Height (Feet): 5 Height (Inches): 5.00 Weight (Pounds): 308 General Appearance: no apparent distress EENT: other - Intubated on ventilator Cardiovascular: tachycardia Respiratory/Chest: decreased breath sounds, other Abdomen: distended - Tachypneic Rigo Tyler MD Jun 21, 2020 12:13
--- NOTE | 2020-06-21 12:48 | NUR ---
RESPIRATORY NOTE: FiO2 increased from 80% to 100% due to low saturation of 86%. Michaela ELLINGTON aware. Will continue to monitor.
--- NOTE | 2020-06-21 13:46 | Diagnostic Imaging Report ---
Indication: Shortness of breath Technique: One view of the chest Comparison: 06/16/2020 Findings: Stable satisfactory tube positions. Bilateral infiltrates are unchanged. Impression: Unchanged, over 5 days, findings as above.
--- NOTE | 2020-06-21 13:46 | NUR ---
RADIOLOGY DEPT., CHEST X-RAY DONE.-P.DYE
--- NOTE | 2020-06-21 14:52 | Surgery Progress Note ---
Surgery Progress Note Subjective Additional Comments ill appearing no 100% fio2 peep 5 need to wean prior to trach will need trach Objective Last 24 Hour Vital Signs Date Time Temp Pulse Resp B/P (MAP) Pulse Ox O2 Delivery O2 Flow Rate FiO2 06/21/20 13:00 111 30 138/99 (112) 94 06/21/20 12:49 99.9 06/21/20 12:48 110 30 100 06/21/20 12:30 113 31 146/78 (100) 97 06/21/20 12:00 100.6 111 30 137/89 (105) 100 06/21/20 11:30 113 29 129/77 (94) 100 06/21/20 11:20 103 26 80 06/21/20 11:00 101 33 142/84 (103) 91 06/21/20 10:30 114 31 123/74 (90) 99 06/21/20 10:00 113 29 108/66 (80) 100 06/21/20 09:30 120 24 97/52 (67) 100 06/21/20 09:00 122 24 80 06/21/20 09:00 124 24 114/52 (72) 100 06/21/20 08:30 128 35 114/58 (76) 99 06/21/20 08:00 102.4 131 34 119/59 (79) 100 06/21/20 07:30 136 42 138/67 (90) 100 06/21/20 07:00 134 41 133/62 (85) 96 06/21/20 06:30 135 45 06/21/20 06:27 24 Mechanical Ventilator 80 06/21/20 06:15 102.1 06/21/20 06:00 30 80 06/21/20 06:00 124 44 145/88 (107) 100 06/21/20 05:00 115 29 132/62 (85) 99 06/21/20 05:00 32 Endotracheal Tube 80 06/21/20 04:00 122 06/21/20 04:00 80 06/21/20 04:00 20 Mechanical Ventilator 90 06/21/20 04:00 101.8 113 28 99/55 (70) 97 06/21/20 04:00 Mechanical Ventilator Mechanical Ventilator 06/21/20 03:29 117 30 80 06/21/20 03:00 24 90 06/21/20 03:00 119 32 115/76 (89) 99 06/21/20 02:00 24 90 06/21/20 02:00 116 31 108/75 (86) 98 06/21/20 01:00 31 80 06/21/20 01:00 114 31 107/62 (77) 99 06/21/20 00:00 112 28 102/62 (75) 98 06/21/20 00:00 30 Endotracheal Tube 80 06/21/20 00:00 Mechanical Ventilator Mechanical Ventilator 06/21/20 00:00 80 06/21/20 00:00 115 06/20/20 23:29 113 29 80 06/20/20 23:00 116 30 102/81 (88) 100 06/20/20 23:00 24 90 06/20/20 22:00 20 Endotracheal Tube 90 06/20/20 22:00 115 26 92/60 (71) 100 06/20/20 21:52 100.2 06/20/20 21:00 28 Endotracheal Tube 90 06/20/20 21:00 100.2 120 44 97/50 (66) 99 06/20/20 20:00 Mechanical Ventilator Mechanical Ventilator 06/20/20 20:00 120 44 106/65 (79) 100 06/20/20 20:00 114 06/20/20 20:00 22 Endotracheal Tube 90 06/20/20 20:00 100 06/20/20 19:48 119 28 90 06/20/20 19:00 101.5 116 39 100/63 (75) 100 06/20/20 19:00 28 Endotracheal Tube 90 06/20/20 18:00 26 Mechanical Ventilator 100 06/20/20 18:00 117 36 97/64 (75) 100 06/20/20 17:00 32 Mechanical Ventilator 100 06/20/20 17:00 121 32 108/64 (79) 100 06/20/20 16:00 100 06/20/20 16:00 99.8 119 38 106/69 (81) 100 06/20/20 16:00 121 06/20/20 16:00 38 Mechanical Ventilator 100 06/20/20 16:00 Mechanical Ventilator Mechanical Ventilator 06/20/20 16:00 Mechanical Ventilator Mechanical Ventilator 06/20/20 15:04 120 34 100 06/20/20 15:00 38 Mechanical Ventilator 100 06/20/20 15:00 124 36 99/60 (73) 100 I&O Intake and Output 06/20/20 06/21/20 19:00 07:00 Intake Total 1329.092 ml 764 ml Output Total 710 ml 1050 ml Balance 619.092 ml -286 ml Free Water 90 ml IV Total 759.092 ml 44 ml Tube Feeding 480 ml 720 ml Output Urine Total 710 ml 850 ml Stool Total 200 ml # Bowel Movements 100 Dressing: saturated Cardiovascular: RSR Respiratory: decreased breath sounds Abdomen: soft, non-tender, present bowel sounds Extremities: edema, no tenderness, no cyanosis Laboratory Tests Test 06/20/20 17:35 06/21/20 00:33 06/21/20 03:20 POC Whole Blood Glucose Pending 139 MG/DL (74-106) H White Blood Count 8.5 K/UL (4.8-10.8) Red Blood Count 2.64 M/UL (4.20-5.40) L Hemoglobin 8.1 G/DL (12.0-16.0) L Hematocrit 24.6 % (37.0-47.0) L Mean Corpuscular Volume 93 FL (80-99) Mean Corpuscular Hemoglobin 30.8 PG (27.0-31.0) Mean Corpuscular Hemoglobin Concent 33.0 G/DL (32.0-36.0) Red Cell Distribution Width 17.2 % (11.6-14.8) H Platelet Count 192 K/UL (150-450) Mean Platelet Volume 7.4 FL (6.5-10.1) Neutrophils (%) (Auto) 80.7 % (45.0-75.0) H Lymphocytes (%) (Auto) 13.8 % (20.0-45.0) L Monocytes (%) (Auto) 2.8 % (1.0-10.0) Eosinophils (%) (Auto) 2.2 % (0.0-3.0) Basophils (%) (Auto) 0.4 % (0.0-2.0) Sodium Level 141 MMOL/L (136-145) Potassium Level 4.6 MMOL/L (3.5-5.1) Chloride Level 103 MMOL/L (98-107) Carbon Dioxide Level 35 MMOL/L (21-32) H Anion Gap 3 mmol/L (5-15) L Blood Urea Nitrogen 22 mg/dL (7-18) H Creatinine 0.6 MG/DL (0.55-1.30) Estimat Glomerular Filtration Rate > 60 mL/min (>60) Glucose Level 88 MG/DL (74-106) Calcium Level 9.0 MG/DL (8.5-10.1) Phosphorus Level 1.6 MG/DL (2.5-4.9) L Magnesium Level 2.3 MG/DL (1.8-2.4) Total Bilirubin 0.8 MG/DL (0.2-1.0) Aspartate Amino Transf (AST/SGOT) 36 U/L (15-37) Alanine Aminotransferase (ALT/SGPT) 21 U/L (12-78) Alkaline Phosphatase 61 U/L (46-116) C-Reactive Protein, Quantitative 43.8 mg/dL (0.00-0.90) H Total Protein 6.0 G/DL (6.4-8.2) L Albumin 1.8 G/DL (3.4-5.0) L Globulin 4.2 g/dL Albumin/Globulin Ratio 0.4 (1.0-2.7) L Plan Problems: (1) Respiratory distress (2) Respiratory failure Assessment & Plan: 50-year-old female Covid positive respiratory insufficiency intubated on ventilatory support declining. Leukocytosis increase oxygen requirement. Vent settings per pulmonology reviewed identified and agree. Unfortunately further surgical invention at this time is not appropriate as patient is not a candidate and her current condition. Prognosis overall guarded. Tracheostomy can be considered in the future if recovering or shows improvement and requires unable to be weaned from ventilator support. Currently okay for nutritional optimization with NG tube. Will need significant monitoring for decubitus formation given patient's size and condition. Okay for air mattress tolerated. Turn every 2 hours as tolerated. Patient is otherwise critically ill and blood pressure labile. Will need to monitor closely.Bilateral infiltrates are again demonstrated. Stable tube and line positions. will need trach will need to wean vent first (3) Hypoxia (4) Pneumonia due to COVID-19 virus Assessment & Plan: ++ as per pulm and ID (5) Diabetes mellitus out of control Assessment & Plan: DAILY ESTIMATED NEEDS: Needs based on Critical care, obesity 11-14kcal/kg actual body wt (140kg) kcals/kg [id number] total kcals 1.5-2.0g prot/kg IBW (64.5kg) g protein/kg 96-129 g total protein 25-30ml/kg abw (83kg) mL/kg 1169-7978 total fluid mLs NUTRITION DIAGNOSIS: Swallowing difficulty R/T respiratory failure as evidenced by pt orally intubated and sedated, on OGT feeds. CURRENT TF: Vital 1.2 goal of 60ml/hr ENTERAL NUTRITION RECOMMENDATIONS: Vital AF 1.2 @ 60ml/hr x 24 hrs to provide 1440ml, 1728kcal, 108g prot, 1168ml free water * Maintain current critical care and carb controlled TF formula of Vital AF * TF @ goal meeds 100% est kcal/prot needs * HOB over 30 degrees/ water flush per MD TF may be lowered to 55ml/hr for improved BG control while maintaining Kcal and pro needs. ADDITIONAL RECOMMENDATIONS: * Calibrated bedscale wt * Monitor Propofol rate, need for TF adjustment-> now off * Monitor BGs closely : now improved, on novolog q 6rs + NISS * Monitor lytes- K elevated, monitor need for TF change * Rec bowel regimen- now w/ rectal tube . Az Devine Jun 21, 2020 14:52
--- NOTE | 2020-06-21 15:16 | NUR ---
CASE MANAGEMENT:REVIEW 06/21/20 SI: COVID PNA ACUTE RESPIRATORY FAILURE~ INTUBATED 100.6 113 30 137/89 94%% ON VENT SUPPORT W/100% FIO2 H/H-8.1/24.6 CO2+35 IS: IV LASIX QD VERSED GTT MIDODRINE NG Q8HRS IV PROTONIX Q12 IVF@50/HR LOVENOX SQ QD : ICU STATUS DCP: FROM HOME
--- NOTE | 2020-06-21 16:00 | NUR ---
NURSE NOTES: Pt VS stable. Temp within normal limits. Will continue to monitor.
--- NOTE | 2020-06-21 16:28 | NUR ---
INSURANCE CLINICALS AND REVIEWS FAXED TO [facility] T: [phone] EXT [phone] F: [phone]
--- NOTE | 2020-06-21 16:33 | NUR ---
RESPIRATORY NOTE: PT remains on mechanical ventilation tolerating current settings well. SX PRN with no ADR. Airway is secure and patent. No s/s of respiratory distress noted at this time.
--- NOTE | 2020-06-21 19:35 | NUR ---
NURSE HAND-OFF REPORT: Report given to RAKEL Boyer Latest Vital Signs: Temperature 98.9 , Pulse 103 , B/P 103 /68 , Respiratory Rate 25 , O2 SAT 100 , Mechanical Ventilator, O2 Flow Rate . Vital Sign Comment: VS stable. NO sign of distress EKG Rhythm: Sinus Tachycardia Rhythm change?: N Notified?: Babs Abdalla MD Response: no response Latest Meyers Fall Score: 70 Fall Risk: High Risk Safety Measures: Call light Within Reach, Bed Alarm Zone 1, Side Rails Side Rails x3, Bed position Low and Locked. Fall Precautions: Yellow Socks Report given to RAKEL Boyer.
--- NOTE | 2020-06-21 19:36 | NUR ---
NURSE NOTES: Patient received from RAKEL Jennings. Patient sedated with 7.0ETT at 23cm lipline on ventilator AC 15 TV 600 FiO2 100% PEEP 5. BP103/68 HR104 Sinus tachy on monitor temp 99.0F axillary, cooling blanket off. Right upper arm PICC running versed at 10mg/hr with serous drainage from dressing and bilateral hand generalized edema. Left nare NGT running Vital AF 1.2 @ 60ml with 80ml residual noted. Lennon catheter draining scant light jordyn urine. Rectal tube in place with loose brown stool noted. Patient repositioned and oral care provided.
[2020-06-21] MEDS: Miralax 17gm pkt GT SCH (20:06)
[2020-06-21] MEDS: Dyna-Hex 2% Top Sol 2oz TOPIC SCH (20:06)
--- NOTE | 2020-06-21 22:00 | NUR ---
NURSE NOTES: Patient sedated with 7.0ETT at 23cm lipline on ventilator AC 15 TV 600 FiO2 80% PEEP 5. BP100/54 HR96 NSR on monitor, scheduled midodrine administered. Right upper arm PICC running versed at 10mg/hr, dressing reinforced. Left nare NGT running Vital AF 1.2 @ 60ml. Lennon catheter draining scant light jordyn urine. Rectal tube in place. Patient repositioned and oral care provided.
[2020-06-22] VITALS (38 sets, daily range): BP systolic 96–136; BP diastolic 64–97
--- NOTE | 2020-06-22 | NUR ---
NURSE NOTES: Patient sedated with 7.0ETT at 23cm lipline on ventilator AC 15 TV 600 FiO2 100% PEEP 5. BP123/78 HR106 sinus tachy on monitor temp 99.4F axillary, cooling blanket turned on. Right upper arm PICC running versed at 10mg/hr, dressing changed. Left nare NGT clamped due to bed malfunction, unable to raise HOB, engineering paged. Lennon catheter draining scant light jordyn urine. Rectal tube in place. Patient given CHG bath, repositioned and oral care provided.
[2020-06-22] MEDS: Midazolam HCl 50mg/10ml vial 100 MG in NS 180 ML IV PRN ×4 (01:23→23:01)
--- NOTE | 2020-06-22 02:00 | NUR ---
NURSE NOTES: Patient sedated with 7.0ETT at 23cm lipline on ventilator AC 15 TV 600 FiO2 100% PEEP 5. BP96/64 HR102 sinus tachy on monitor temp 99.2F axillary, cooling blanket turned on. Right upper arm PICC running versed at 12mg/hr, dressing changed. Left nare NGT clamped due to bed malfunction, unable to raise HOB. Lennon catheter draining scant light jordyn urine. Rectal tube in place. Patient repositioned and oral care provided.
--- NOTE | 2020-06-22 04:00 | NUR ---
NURSE NOTES: Patient sedated with 7.0ETT at 23cm lipline on ventilator AC 15 TV 600 FiO2 100% PEEP 5. BP121/80 HR99 NSR on monitor and afebrile with cooling blanket turned on. Right upper arm PICC running versed at 12mg/hr. Left nare NGT clamped due to bed malfunction, unable to raise HOB. Lennon catheter draining light jordyn urine. Rectal tube in place. Patient repositioned and oral care provided.
[2020-06-22 04:51] LABS: BASOPHILS % (AUTO) 0.4 % (0.0-2.0); EOSINOPHILS % (AUTO) 8.7 % (0.0-3.0); HEMATOCRIT 24.8 % (37.0-47.0); LYMPHOCYTES % (AUTO) 15.4 % (20.0-45.0); MEAN CORPUSCULAR VOLUME 93 FL (80-99); MONOCYTES % (AUTO) 1.8 % (1.0-10.0); NEUTROPHILS % (AUTO) 73.6 % (45.0-75.0); PLATELET COUNT 190 K/UL (150-450); RED BLOOD COUNT 2.67 M/UL (4.20-5.40); RED CELL DISTRIBUTION WIDTH 16.5 % (11.6-14.8)
[2020-06-22 05:08] LABS: ALANINE AMINOTRANSFERASE 21 U/L (12-78); ALBUMIN 1.7 G/DL (3.4-5.0); ALBUMIN/GLOBULIN RATIO 0.4 (1.0-2.7); ALKALINE PHOSPHATASE 72 U/L (46-116); ANION GAP 3 mmol/L (5-15); ASPARTATE AMINO TRANSFERASE 30 U/L (15-37); BILIRUBIN,TOTAL 0.9 MG/DL (0.2-1.0); BLOOD UREA NITROGEN 26 mg/dL (7-18); CALCIUM 8.6 MG/DL (8.5-10.1); CARBON DIOXIDE 38 MMOL/L (21-32); CHLORIDE 102 MMOL/L (98-107); CREATININE 0.5 MG/DL (0.55-1.30); POTASSIUM 3.3 MMOL/L (3.5-5.1); SODIUM 143 MMOL/L (136-145)
[2020-06-22 05:31] LABS: PHOSPHORUS 2.6 MG/DL (2.5-4.9)
[2020-06-22] MEDS: Midodrine 10mg tab ORAL SCH ×3 (05:45→21:30)
[2020-06-22] MEDS: NovoLOG Insulin Flexpen SUBQ SCH ×8 (05:45→23:32)
--- NOTE | 2020-06-22 06:00 | NUR ---
NURSE NOTES: Patient sedated with 7.0ETT at 23cm lipline on ventilator AC 15 TV 600 FiO2 100% PEEP 5. BP101/69 HR90 NSR on monitor and afebrile with cooling blanket turned on. Right upper arm PICC running versed at 12mg/hr. Left nare NGT clamped due to bed malfunction, unable to raise HOB. Lennon catheter draining light jordyn urine. Rectal tube in place. Patient repositioned and oral care provided.
--- NOTE | 2020-06-22 07:16 | NUR ---
NURSE HAND-OFF REPORT: Latest Vital Signs: Temperature 98.2 , Pulse 86 , B/P 114 /71 , Respiratory Rate 24 , O2 SAT 89 , Mechanical Ventilator, O2 Flow Rate . Vital Sign Comment: EKG Rhythm: Sinus Rhythm Rhythm change?: Jesus TOLLIVER Notified?: Babs EDWARDS MD Response: Latest Meyers Fall Score: 70 Fall Risk: High Risk Safety Measures: Call light Within Reach, Bed Alarm Zone 1, Side Rails Side Rails x3, Bed position Low and Locked. Fall Precautions: Yellow Socks Report given to RAKEL Moran.
--- NOTE | 2020-06-22 07:17 | NUR ---
NURSE NOTES: Received report from Jeni Whelan RN.BP WNL. Intubated and lightly sedated RASS -2. NGT in place, tube feeding held at this time. Skin intact. Rectal tube in place with light brown output. Lennon cath inplace. Airborne isolation observed. Will continue plan of care.
[2020-06-22] MEDS: Pantoprazole Inj IVP SCH ×2 (08:13→20:39)
[2020-06-22] MEDS: Enoxaparin 40mg Inj SUBQ SCH (08:14)
[2020-06-22] MEDS: Phospha 250 Neutral tab NG SCH ×2 (09:00→13:00)
[2020-06-22] MEDS: Docusate 100mg/10ml Liq GT SCH ×2 (09:00→20:39)
--- NOTE | 2020-06-22 09:00 | NUR ---
NURSE NOTES: Dr. Colt Arana at bedside. With order obtained to swab patient for covid-19 PCR tomorrow.
--- NOTE | 2020-06-22 09:16 | Infectious Diseases Prog Note ---
Assessment/Plan Assessment/Plan A 1. COVID19 pneumonia 2. Hypoxic respiratory failure 3. Morbid obesity 4. DM type with hyperglycemia 5. Thrombocytopenia 6. leukocytosis resolved 7. Serratia pneumonia 8. Anemia P 1. Finished remdesivir course 2. Case was RN Subjective ROS Limited/Unobtainable: Yes Neurologic: Reports: other - sedated on restraint Allergies: Coded Allergies: No Known Allergies (Unverified , 05/28/20) Objective Last 24 Hour Vital Signs Date Time Temp Pulse Resp B/P (MAP) Pulse Ox O2 Delivery O2 Flow Rate FiO2 06/22/20 09:00 33 Mechanical Ventilator 100 06/22/20 08:45 90 34 136/82 (100) 80 06/22/20 08:30 98 35 129/81 (97) 79 06/22/20 08:15 94 34 125/85 (98) 80 06/22/20 08:00 Mechanical Ventilator Mechanical Ventilator 06/22/20 08:00 100 06/22/20 08:00 33 Mechanical Ventilator 100 06/22/20 08:00 92 33 133/78 (96) 87 06/22/20 07:45 29 Mechanical Ventilator 100 06/22/20 07:45 97.8 90 29 125/81 (96) 92 06/22/20 07:37 94 06/22/20 07:28 92 29 100 06/22/20 07:00 86 24 114/71 (85) 89 06/22/20 07:00 30 Mechanical Ventilator 100 06/22/20 06:30 90 27 06/22/20 06:00 90 23 101/69 (80) 88 06/22/20 06:00 26 Mechanical Ventilator 100 06/22/20 05:00 96 26 105/67 (80) 90 06/22/20 05:00 25 Mechanical Ventilator 100 06/22/20 04:00 100 06/22/20 04:00 102 06/22/20 04:00 98.2 99 31 121/80 (94) 84 06/22/20 04:00 Mechanical Ventilator Mechanical Ventilator 06/22/20 04:00 31 Mechanical Ventilator 100 06/22/20 03:30 99 31 100 06/22/20 03:00 94 25 109/67 (81) 91 06/22/20 03:00 25 Mechanical Ventilator 100 06/22/20 02:00 102 27 96/64 (75) 97 06/22/20 02:00 25 Mechanical Ventilator 100 06/22/20 01:23 24 Mechanical Ventilator 100 06/22/20 01:15 34 Mechanical Ventilator 100 06/22/20 01:00 100 34 133/78 (96) 84 06/22/20 01:00 35 Mechanical Ventilator 100 06/22/20 00:00 100 06/22/20 00:00 100 06/22/20 00:00 35 Mechanical Ventilator 100 06/22/20 00:00 99.4 106 33 123/78 (93) 82 06/22/20 00:00 Mechanical Ventilator Mechanical Ventilator 06/21/20 23:30 100 26 100 06/21/20 23:00 24 Mechanical Ventilator 80 06/21/20 23:00 95 23 100/62 (75) 98 06/21/20 22:00 24 Mechanical Ventilator 80 06/21/20 22:00 96 22 100/54 (69) 98 06/21/20 21:00 25 Mechanical Ventilator 80 06/21/20 21:00 102 25 114/68 (83) 96 06/21/20 20:21 28 Mechanical Ventilator 80 06/21/20 20:00 80 06/21/20 20:00 99.0 97 22 115/66 (82) 97 06/21/20 20:00 102 06/21/20 20:00 25 Mechanical Ventilator 90 06/21/20 20:00 Mechanical Ventilator Mechanical Ventilator 06/21/20 19:09 103 25 90 06/21/20 19:00 104 25 103/68 (80) 100 06/21/20 19:00 25 Mechanical Ventilator 90 06/21/20 18:30 96 19 89/62 (71) 100 06/21/20 18:00 96 18 94/50 (65) 100 06/21/20 18:00 19 Mechanical Ventilator 90 06/21/20 17:30 96 18 94/57 (69) 100 06/21/20 17:00 97 26 100/42 (61) 99 06/21/20 17:00 25 Mechanical Ventilator 90 06/21/20 16:30 103 19 111/69 (83) 97 06/21/20 16:00 100 06/21/20 16:00 98.9 107 25 107/65 (79) 99 06/21/20 16:00 Mechanical Ventilator Mechanical Ventilator 06/21/20 16:00 19 Mechanical Ventilator 90 06/21/20 16:00 105 06/21/20 15:30 105 25 98/59 (72) 100 06/21/20 15:00 104 20 94/52 (66) 100 06/21/20 15:00 25 Mechanical Ventilator 100 06/21/20 15:00 99 21 90 06/21/20 14:30 109 24 95/59 (71) 100 06/21/20 14:00 111 24 109/64 (79) 100 06/21/20 14:00 24 Mechanical Ventilator 100 06/21/20 13:30 114 27 117/68 (84) 100 06/21/20 13:00 28 100 06/21/20 13:00 111 30 138/99 (112) 94 06/21/20 12:49 99.9 06/21/20 12:48 110 30 100 06/21/20 12:30 113 31 146/78 (100) 97 06/21/20 12:00 123 06/21/20 12:00 100.6 111 30 137/89 (105) 100 06/21/20 12:00 100 06/21/20 12:00 30 80 06/21/20 12:00 Mechanical Ventilator Mechanical Ventilator 06/21/20 11:30 113 29 129/77 (94) 100 06/21/20 11:20 103 26 80 06/21/20 11:00 101 33 142/84 (103) 91 06/21/20 11:00 30 Mechanical Ventilator 100 06/21/20 10:30 114 31 123/74 (90) 99 06/21/20 10:00 113 29 108/66 (80) 100 06/21/20 10:00 24 Mechanical Ventilator 100 06/21/20 09:30 120 24 97/52 (67) 100 Height (Feet): 5 Height (Inches): 5.00 Weight (Pounds): 308 HEENT: other - orally intubated Respiratory/Chest: other - on ventilator, NUK0=863% Cardiovascular: normal rate, other - R arm PICC line Abdomen: soft, non tender, other - tube feeding Extremities: other - hands edema Neurologic/Psychiatric: other - seadted Laboratory Tests Test 06/21/20 17:55 06/22/20 03:40 06/22/20 05:20 06/22/20 07:35 POC Whole Blood Glucose 129 MG/DL (74-106) H 109 MG/DL (74-106) H White Blood Count 9.0 K/UL (4.8-10.8) Red Blood Count 2.67 M/UL (4.20-5.40) L Hemoglobin 8.0 G/DL (12.0-16.0) L Hematocrit 24.8 % (37.0-47.0) L Mean Corpuscular Volume 93 FL (80-99) Mean Corpuscular Hemoglobin 30.1 PG (27.0-31.0) Mean Corpuscular Hemoglobin Concent 32.4 G/DL (32.0-36.0) Red Cell Distribution Width 16.5 % (11.6-14.8) H Platelet Count 190 K/UL (150-450) Mean Platelet Volume 8.0 FL (6.5-10.1) Neutrophils (%) (Auto) 73.6 % (45.0-75.0) Lymphocytes (%) (Auto) 15.4 % (20.0-45.0) L Monocytes (%) (Auto) 1.8 % (1.0-10.0) Eosinophils (%) (Auto) 8.7 % (0.0-3.0) H Basophils (%) (Auto) 0.4 % (0.0-2.0) Sodium Level 143 MMOL/L (136-145) Potassium Level 3.3 MMOL/L (3.5-5.1) L Chloride Level 102 MMOL/L (98-107) Carbon Dioxide Level 38 MMOL/L (21-32) H Anion Gap 3 mmol/L (5-15) L Blood Urea Nitrogen 26 mg/dL (7-18) H Creatinine 0.5 MG/DL (0.55-1.30) L Estimat Glomerular Filtration Rate > 60 mL/min (>60) Glucose Level 98 MG/DL (74-106) Uric Acid 2.1 MG/DL (2.6-7.2) L Calcium Level 8.6 MG/DL (8.5-10.1) Phosphorus Level 2.6 MG/DL (2.5-4.9) Magnesium Level 1.8 MG/DL (1.8-2.4) Total Bilirubin 0.9 MG/DL (0.2-1.0) Aspartate Amino Transf (AST/SGOT) 30 U/L (15-37) Alanine Aminotransferase (ALT/SGPT) 21 U/L (12-78) Alkaline Phosphatase 72 U/L (46-116) C-Reactive Protein, Quantitative 28.8 mg/dL (0.00-0.90) H Pro-B-Type Natriuretic Peptide 3167 pg/mL (0-125) H Total Protein 6.2 G/DL (6.4-8.2) L Albumin 1.7 G/DL (3.4-5.0) L Globulin 4.5 g/dL Albumin/Globulin Ratio 0.4 (1.0-2.7) L Arterial Blood pH 7.469 (7.350-7.450) Arterial Blood Partial Pressure CO2 54.6 mmHg (35.0-45.0) H Arterial Blood Partial Pressure O2 46.7 mmHg (75.0-100.0) Arterial Blood HCO3 38.8 mmol/L (22.0-26.0) H Arterial Blood Oxygen Saturation 82.8 % (95-100) *L Arterial Blood Base Excess 13.4 (-2-2) *H Jeremiah Test Positive Current Medications Medications (Trade) Dose Ordered Sig/Zelda Route PRN Reason Start Time Stop Time Status Last Admin Dose Admin Acetaminophen (Tylenol) 650 mg Q4H PRN NG Temp >100.5 05/31/20 21:45 06/30/20 21:44 06/21/20 12:19 Acetaminophen (Tylenol) 650 mg Q6H PRN NG Mild Pain (Pain Scale 1-3) 06/06/20 18:00 07/06/20 17:59 06/13/20 23:10 Chlorhexidine Gluconate (Inna-Hex 2%) 1 applic DAILY@1999 TOPIC 05/30/20 20:00 08/28/20 19:59 06/21/20 20:06 Dextrose (Dextrose 50%) 25 ml Q30M PRN IV Hypoglycemia 06/05/20 10:45 09/03/20 10:44 Dextrose (Dextrose 50%) 50 ml Q30M PRN IV Hypoglycemia 06/05/20 10:45 09/03/20 10:44 Docusate Sodium (Colace) 100 mg Q12HR GT 06/07/20 21:00 07/07/20 20:59 06/20/20 21:18 Enoxaparin Sodium (Lovenox) 40 mg DAILY SUBQ 05/30/20 10:00 08/28/20 09:59 06/22/20 08:14 Furosemide (Lasix) 40 mg DAILY IV 06/22/20 09:00 07/22/20 08:59 06/22/20 08:13 Insulin Aspart (NovoLOG) EVERY 6 HOURS SUBQ 06/07/20 00:00 09/03/20 11:59 06/21/20 12:00 Insulin Aspart (NovoLOG) 10 units EVERY 6 HOURS SUBQ 06/21/20 12:00 09/04/20 08:59 06/21/20 18:00 Midazolam HCl 100 mg/Sodium Chloride 200 ml @ 0 mls/hr Q24H PRN IV sedation 06/22/20 01:00 06/23/20 11:29 06/22/20 01:23 Midodrine (Pro-Amatine) 10 mg Q8HR ORAL 06/14/20 14:00 09/12/20 13:59 06/22/20 05:45 Pantoprazole (Protonix) 40 mg Q12HR IVP 06/13/20 21:00 07/03/20 08:59 06/22/20 08:13 Phosphorus (Phospha 250 Neutral) 500 mg THREE TIMES A DAY NG 06/21/20 09:30 07/21/20 09:29 06/21/20 17:29 Polyethylene Glycol (Miralax) 17 gm BEDTIME GT 06/07/20 21:00 07/07/20 20:59 06/17/20 21:02 Colt Arana MD Jun 22, 2020 09:16
--- NOTE | 2020-06-22 11:25 | Hematology/Onc Progress Note ---
Assessment/Plan Assessment/Plan # Thrombocytopenia is due to infection/underlying covid19+++ --> ABX ceftriaxone -->zosyn --> on steriods likely cause of initial wbc --> per pulm --> plt 107->156-->192-->205 --> smear reviewed # Anemia due to chronic disease --> hgb goal is >7 --> transfuse prn --> ferritin is >1000 --> hold off on iron --> 10-->9.8->9-->8-->8.2-->9.4-->8.1 # Elevated ddimer due to covid19++ --> duplex legs is negative --> underlying covid rx # Hypoxia -> due to covid19 # Hypoxemia --> rx same as above # Respiratory failure --> on vent --> per pulm # Pneumonia due to COVID-19 virus --> per pulm rx -> sp remdesivir # Diabetes mellitus out of control --> hgb a1c goal <7 # Poor prognosis # Dvt ppx lovenox sq Appreciate consultation and dw RN Subjective Allergies: Coded Allergies: No Known Allergies (Unverified , 05/28/20) Subjective Subjective Subjective Respiratory: Denies: no symptoms, cough, shortness of breath, SOB with excertion, SOB at rest, sputum, wheezing, other Gastrointestinal/Abdominal: Denies: no symptoms, abdomen distended, abdominal pain, black stools, tarry stools, blood in stool, constipated, diarrhea, difficulty swallowing, nausea, poor appetite, poor fluid intake, rectal bleeding, vomiting, other Allergies: Coded Allergies: No Known Allergies (Unverified , 05/28/20) All Systems: reviewed and negative except above Subjective 06/10 nv, on vent, with ogt, on fentanyl and versed, plt stable 06/11 nv, vent adjusted is on ogt, meds reviewed 06/12 nv, vent, meds noted, labs noted, no bleeding, hgb 10.4 06/13 nv, is on vent, meds reviewed, no bleeding, cbc reviewed 06/14 nv, on vent, tachy, labs reviewed, gross hematuria, febrile overnight, abx 06/17 nv, on vent, labs noted, no major changes, feeling better overnight 06/18 nv, meds reviewed, labs noted, no major events, hgb 8.6 06/19 nv, remains intubated, with fluids, labs reviewed, meds noted 06/20 nv, intubated remains on restraints, meds noted as well, as labs 06/21 nv, remains on vent, on restraints, meds reviewed, labs noted 06/22: covering Dr. Del Cid no acute events Objective Objective Current Medications Medications (Trade) Dose Ordered Sig/Zelda Route PRN Reason Start Time Stop Time Status Last Admin Dose Admin Acetaminophen (Tylenol) 650 mg Q4H PRN NG Temp >100.5 05/31/20 21:45 06/30/20 21:44 06/21/20 12:19 Acetaminophen (Tylenol) 650 mg Q6H PRN NG Mild Pain (Pain Scale 1-3) 06/06/20 18:00 07/06/20 17:59 06/13/20 23:10 Chlorhexidine Gluconate (Inna-Hex 2%) 1 applic DAILY@2000 TOPIC 05/30/20 20:00 08/28/20 19:59 06/21/20 20:06 Dextrose (Dextrose 50%) 25 ml Q30M PRN IV Hypoglycemia 06/05/20 10:45 09/03/20 10:44 Dextrose (Dextrose 50%) 50 ml Q30M PRN IV Hypoglycemia 06/05/20 10:45 09/03/20 10:44 Docusate Sodium (Colace) 100 mg Q12HR GT 06/07/20 21:00 07/07/20 20:59 06/20/20 21:18 Enoxaparin Sodium (Lovenox) 40 mg DAILY SUBQ 05/30/20 10:00 08/28/20 09:59 06/22/20 08:14 Furosemide (Lasix) 40 mg DAILY IV 06/22/20 09:00 07/22/20 08:59 06/22/20 08:13 Insulin Aspart (NovoLOG) EVERY 6 HOURS SUBQ 06/07/20 00:00 09/03/20 11:59 06/21/20 12:00 Insulin Aspart (NovoLOG) 10 units EVERY 6 HOURS SUBQ 06/21/20 12:00 09/04/20 08:59 06/21/20 18:00 Midazolam HCl 100 mg/Sodium Chloride 200 ml @ 0 mls/hr Q24H PRN IV sedation 06/22/20 01:00 06/23/20 11:29 06/22/20 09:17 Midodrine (Pro-Amatine) 10 mg Q8HR ORAL 06/14/20 14:00 09/12/20 13:59 06/22/20 05:45 Pantoprazole (Protonix) 40 mg Q12HR IVP 06/13/20 21:00 07/03/20 08:59 06/22/20 08:13 Phosphorus (Phospha 250 Neutral) 500 mg THREE TIMES A DAY NG 06/21/20 09:30 07/21/20 09:29 06/21/20 17:29 Polyethylene Glycol (Miralax) 17 gm BEDTIME GT 06/07/20 21:00 07/07/20 20:59 06/17/20 21:02 Last 24 Hour Vital Signs Date Time Temp Pulse Resp B/P (MAP) Pulse Ox O2 Delivery O2 Flow Rate FiO2 06/22/20 11:00 92 29 106/72 (83) 94 06/22/20 10:45 93 29 108/71 (83) 95 06/22/20 10:30 93 29 105/72 (83) 94 06/22/20 10:15 91 28 110/70 (83) 94 06/22/20 10:00 92 33 119/77 (91) 91 06/22/20 10:00 28 Mechanical Ventilator 100 06/22/20 09:45 28 Mechanical Ventilator 100 06/22/20 09:45 87 28 111/84 (93) 91 06/22/20 09:30 93 33 128/86 (100) 83 06/22/20 09:17 35 Mechanical Ventilator 100 06/22/20 09:00 33 Mechanical Ventilator 100 06/22/20 09:00 95 35 131/87 (102) 78 06/22/20 08:45 90 34 136/82 (100) 80 06/22/20 08:30 98 35 129/81 (97) 79 06/22/20 08:15 94 34 125/85 (98) 80 06/22/20 08:00 Mechanical Ventilator Mechanical Ventilator 06/22/20 08:00 100 06/22/20 08:00 33 Mechanical Ventilator 100 06/22/20 08:00 92 33 133/78 (96) 87 06/22/20 07:45 29 Mechanical Ventilator 100 06/22/20 07:45 97.8 90 29 125/81 (96) 92 06/22/20 07:37 94 06/22/20 07:28 92 29 100 06/22/20 07:00 86 24 114/71 (85) 89 06/22/20 07:00 30 Mechanical Ventilator 100 06/22/20 06:30 90 27 06/22/20 06:00 90 23 101/69 (80) 88 06/22/20 06:00 26 Mechanical Ventilator 100 06/22/20 05:00 96 26 105/67 (80) 90 06/22/20 05:00 25 Mechanical Ventilator 100 06/22/20 04:00 100 06/22/20 04:00 102 06/22/20 04:00 98.2 99 31 121/80 (94) 84 06/22/20 04:00 Mechanical Ventilator Mechanical Ventilator 06/22/20 04:00 31 Mechanical Ventilator 100 06/22/20 03:30 99 31 100 06/22/20 03:00 94 25 109/67 (81) 91 06/22/20 03:00 25 Mechanical Ventilator 100 06/22/20 02:00 102 27 96/64 (75) 97 06/22/20 02:00 25 Mechanical Ventilator 100 06/22/20 01:23 24 Mechanical Ventilator 100 06/22/20 01:15 34 Mechanical Ventilator 100 06/22/20 01:00 100 34 133/78 (96) 84 06/22/20 01:00 35 Mechanical Ventilator 100 06/22/20 00:00 100 06/22/20 00:00 100 06/22/20 00:00 35 Mechanical Ventilator 100 06/22/20 00:00 99.4 106 33 123/78 (93) 82 06/22/20 00:00 Mechanical Ventilator Mechanical Ventilator 06/21/20 23:30 100 26 100 06/21/20 23:00 24 Mechanical Ventilator 80 06/21/20 23:00 95 23 100/62 (75) 98 06/21/20 22:00 24 Mechanical Ventilator 80 06/21/20 22:00 96 22 100/54 (69) 98 06/21/20 21:00 25 Mechanical Ventilator 80 06/21/20 21:00 102 25 114/68 (83) 96 06/21/20 20:21 28 Mechanical Ventilator 80 06/21/20 20:00 80 06/21/20 20:00 99.0 97 22 115/66 (82) 97 06/21/20 20:00 102 06/21/20 20:00 25 Mechanical Ventilator 90 06/21/20 20:00 Mechanical Ventilator Mechanical Ventilator 06/21/20 19:09 103 25 90 06/21/20 19:00 104 25 103/68 (80) 100 06/21/20 19:00 25 Mechanical Ventilator 90 06/21/20 18:30 96 19 89/62 (71) 100 06/21/20 18:00 96 18 94/50 (65) 100 06/21/20 18:00 19 Mechanical Ventilator 90 06/21/20 17:30 96 18 94/57 (69) 100 06/21/20 17:00 97 26 100/42 (61) 99 06/21/20 17:00 25 Mechanical Ventilator 90 06/21/20 16:30 103 19 111/69 (83) 97 06/21/20 16:00 100 06/21/20 16:00 98.9 107 25 107/65 (79) 99 06/21/20 16:00 Mechanical Ventilator Mechanical Ventilator 06/21/20 16:00 19 Mechanical Ventilator 90 06/21/20 16:00 105 06/21/20 15:30 105 25 98/59 (72) 100 06/21/20 15:00 104 20 94/52 (66) 100 06/21/20 15:00 25 Mechanical Ventilator 100 06/21/20 15:00 99 21 90 06/21/20 14:30 109 24 95/59 (71) 100 06/21/20 14:00 111 24 109/64 (79) 100 06/21/20 14:00 24 Mechanical Ventilator 100 06/21/20 13:30 114 27 117/68 (84) 100 06/21/20 13:00 28 100 06/21/20 13:00 111 30 138/99 (112) 94 06/21/20 12:49 99.9 06/21/20 12:48 110 30 100 06/21/20 12:30 113 31 146/78 (100) 97 06/21/20 12:00 123 06/21/20 12:00 100.6 111 30 137/89 (105) 100 06/21/20 12:00 100 06/21/20 12:00 30 80 06/21/20 12:00 Mechanical Ventilator Mechanical Ventilator 06/21/20 11:30 113 29 129/77 (94) 100 06/21/20 11:20 103 26 80 06/21/20 11:00 101 33 142/84 (103) 91 06/21/20 11:00 30 Mechanical Ventilator 100 06/21/20 10:30 114 31 123/74 (90) 99 06/21/20 10:00 113 29 108/66 (80) 100 06/21/20 10:00 24 Mechanical Ventilator 100 06/21/20 09:30 120 24 97/52 (67) 100 06/21/20 09:00 122 24 80 06/21/20 09:00 24 Mechanical Ventilator 80 06/21/20 09:00 124 24 114/52 (72) 100 06/21/20 08:30 128 35 114/58 (76) 99 06/21/20 08:00 80 06/21/20 08:00 134 06/21/20 08:00 30 Mechanical Ventilator 80 06/21/20 08:00 102.4 131 34 119/59 (79) 100 06/21/20 08:00 Mechanical Ventilator Mechanical Ventilator 06/21/20 07:30 136 42 138/67 (90) 100 06/21/20 07:00 39 Mechanical Ventilator 80 06/21/20 07:00 134 41 133/62 (85) 96 06/21/20 06:30 135 45 06/21/20 06:27 24 Mechanical Ventilator 80 06/21/20 06:15 102.1 06/21/20 06:00 30 80 06/21/20 06:00 124 44 145/88 (107) 100 06/21/20 05:00 115 29 132/62 (85) 99 06/21/20 05:00 32 Endotracheal Tube 80 06/21/20 04:00 122 06/21/20 04:00 80 06/21/20 04:00 20 Mechanical Ventilator 90 06/21/20 04:00 101.8 113 28 99/55 (70) 97 06/21/20 04:00 Mechanical Ventilator Mechanical Ventilator 06/21/20 03:29 117 30 80 06/21/20 03:00 24 90 06/21/20 03:00 119 32 115/76 (89) 99 06/21/20 02:00 24 90 06/21/20 02:00 116 31 108/75 (86) 98 06/21/20 01:00 31 80 06/21/20 01:00 114 31 107/62 (77) 99 06/21/20 00:00 112 28 102/62 (75) 98 06/21/20 00:00 30 Endotracheal Tube 80 06/21/20 00:00 Mechanical Ventilator Mechanical Ventilator 06/21/20 00:00 80 06/21/20 00:00 115 06/20/20 23:29 113 29 80 06/20/20 23:00 116 30 102/81 (88) 100 06/20/20 23:00 24 90 06/20/20 22:00 20 Endotracheal Tube 90 06/20/20 22:00 115 26 92/60 (71) 100 06/20/20 21:52 100.2 06/20/20 21:00 28 Endotracheal Tube 90 06/20/20 21:00 100.2 120 44 97/50 (66) 99 06/20/20 20:00 Mechanical Ventilator Mechanical Ventilator 06/20/20 20:00 120 44 106/65 (79) 100 06/20/20 20:00 114 06/20/20 20:00 22 Endotracheal Tube 90 06/20/20 20:00 100 06/20/20 19:48 119 28 90 06/20/20 19:00 101.5 116 39 100/63 (75) 100 06/20/20 19:00 28 Endotracheal Tube 90 06/20/20 18:00 26 Mechanical Ventilator 100 06/20/20 18:00 117 36 97/64 (75) 100 06/20/20 17:00 32 Mechanical Ventilator 100 06/20/20 17:00 121 32 108/64 (79) 100 06/20/20 16:00 100 06/20/20 16:00 99.8 119 38 106/69 (81) 100 06/20/20 16:00 121 06/20/20 16:00 38 Mechanical Ventilator 100 06/20/20 16:00 Mechanical Ventilator Mechanical Ventilator 06/20/20 16:00 Mechanical Ventilator Mechanical Ventilator 06/20/20 15:04 120 34 100 06/20/20 15:00 38 Mechanical Ventilator 100 06/20/20 15:00 124 36 99/60 (73) 100 06/20/20 14:00 131 41 102/63 (76) 100 06/20/20 14:00 35 Mechanical Ventilator 100 06/20/20 13:00 132 37 89/43 (58) 98 06/20/20 13:00 38 Mechanical Ventilator 100 06/20/20 12:00 100.0 140 44 96/58 (71) 96 06/20/20 12:00 Mechanical Ventilator Mechanical Ventilator 06/20/20 12:00 38 Mechanical Ventilator 100 06/20/20 12:00 100 06/20/20 12:00 139 Intake and Output 06/21/20 06/22/20 19:00 07:00 Intake Total 1158 ml 508.3 ml Output Total 1710 ml 480 ml Balance -552 ml 28.3 ml IV Total 438 ml 253.3 ml Tube Feeding 720 ml 240 ml Other 15 ml Output Urine Total 1710 ml 460 ml Stool Total 20 ml # Bowel Movements 1 Labs Test 06/20/20 03:15 06/20/20 04:26 06/20/20 13:12 06/20/20 17:35 White Blood Count 6.4 K/UL (4.8-10.8) Red Blood Count 3.25 M/UL (4.20-5.40) Hemoglobin 9.4 G/DL (12.0-16.0) Hematocrit 30.8 % (37.0-47.0) Mean Corpuscular Volume 95 FL (80-99) Mean Corpuscular Hemoglobin 29.0 PG (27.0-31.0) Mean Corpuscular Hemoglobin Concent 30.6 G/DL (32.0-36.0) Red Cell Distribution Width 15.6 % (11.6-14.8) Platelet Count 198 K/UL (150-450) Mean Platelet Volume 7.1 FL (6.5-10.1) Neutrophils (%) (Auto) 57.0 % (45.0-75.0) Lymphocytes (%) (Auto) 20.3 % (20.0-45.0) Monocytes (%) (Auto) 8.1 % (1.0-10.0) Eosinophils (%) (Auto) 8.1 % (0.0-3.0) Basophils (%) (Auto) 6.6 % (0.0-2.0) Sodium Level 137 MMOL/L (136-145) Potassium Level 5.2 MMOL/L (3.5-5.1) Chloride Level 101 MMOL/L (98-107) Carbon Dioxide Level 31 MMOL/L (21-32) Anion Gap 5 mmol/L (5-15) Blood Urea Nitrogen 17 mg/dL (7-18) Creatinine 0.6 MG/DL (0.55-1.30) Estimat Glomerular Filtration Rate > 60 mL/min (>60) Glucose Level 167 MG/DL (74-106) Calcium Level 9.2 MG/DL (8.5-10.1) Phosphorus Level 2.4 MG/DL (2.5-4.9) Magnesium Level 1.5 MG/DL (1.8-2.4) Total Bilirubin 0.9 MG/DL (0.2-1.0) Aspartate Amino Transf (AST/SGOT) 44 U/L (15-37) Alanine Aminotransferase (ALT/SGPT) 25 U/L (12-78) Alkaline Phosphatase 85 U/L (46-116) C-Reactive Protein, Quantitative 8.5 mg/dL (0.00-0.90) Pro-B-Type Natriuretic Peptide 1249 pg/mL (0-125) Total Protein 6.7 G/DL (6.4-8.2) Albumin 2.1 G/DL (3.4-5.0) Globulin 4.6 g/dL Albumin/Globulin Ratio 0.5 (1.0-2.7) Test 06/21/20 00:33 06/21/20 03:20 06/21/20 17:55 06/22/20 03:40 POC Whole Blood Glucose 139 MG/DL (74-106) 129 MG/DL (74-106) White Blood Count 8.5 K/UL (4.8-10.8) 9.0 K/UL (4.8-10.8) Red Blood Count 2.64 M/UL (4.20-5.40) 2.67 M/UL (4.20-5.40) Hemoglobin 8.1 G/DL (12.0-16.0) 8.0 G/DL (12.0-16.0) Hematocrit 24.6 % (37.0-47.0) 24.8 % (37.0-47.0) Mean Corpuscular Volume 93 FL (80-99) 93 FL (80-99) Mean Corpuscular Hemoglobin 30.8 PG (27.0-31.0) 30.1 PG (27.0-31.0) Mean Corpuscular Hemoglobin Concent 33.0 G/DL (32.0-36.0) 32.4 G/DL (32.0-36.0) Red Cell Distribution Width 17.2 % (11.6-14.8) 16.5 % (11.6-14.8) Platelet Count 192 K/UL (150-450) 190 K/UL (150-450) Mean Platelet Volume 7.4 FL (6.5-10.1) 8.0 FL (6.5-10.1) Neutrophils (%) (Auto) 80.7 % (45.0-75.0) 73.6 % (45.0-75.0) Lymphocytes (%) (Auto) 13.8 % (20.0-45.0) 15.4 % (20.0-45.0) Monocytes (%) (Auto) 2.8 % (1.0-10.0) 1.8 % (1.0-10.0) Eosinophils (%) (Auto) 2.2 % (0.0-3.0) 8.7 % (0.0-3.0) Basophils (%) (Auto) 0.4 % (0.0-2.0) 0.4 % (0.0-2.0) Sodium Level 141 MMOL/L (136-145) 143 MMOL/L (136-145) Potassium Level 4.6 MMOL/L (3.5-5.1) 3.3 MMOL/L (3.5-5.1) Chloride Level 103 MMOL/L (98-107) 102 MMOL/L (98-107) Carbon Dioxide Level 35 MMOL/L (21-32) 38 MMOL/L (21-32) Anion Gap 3 mmol/L (5-15) 3 mmol/L (5-15) Blood Urea Nitrogen 22 mg/dL (7-18) 26 mg/dL (7-18) Creatinine 0.6 MG/DL (0.55-1.30) 0.5 MG/DL (0.55-1.30) Estimat Glomerular Filtration Rate > 60 mL/min (>60) > 60 mL/min (>60) Glucose Level 88 MG/DL (74-106) 98 MG/DL (74-106) Calcium Level 9.0 MG/DL (8.5-10.1) 8.6 MG/DL (8.5-10.1) Phosphorus Level 1.6 MG/DL (2.5-4.9) 2.6 MG/DL (2.5-4.9) Magnesium Level 2.3 MG/DL (1.8-2.4) 1.8 MG/DL (1.8-2.4) Total Bilirubin 0.8 MG/DL (0.2-1.0) 0.9 MG/DL (0.2-1.0) Aspartate Amino Transf (AST/SGOT) 36 U/L (15-37) 30 U/L (15-37) Alanine Aminotransferase (ALT/SGPT) 21 U/L (12-78) 21 U/L (12-78) Alkaline Phosphatase 61 U/L (46-116) 72 U/L (46-116) C-Reactive Protein, Quantitative 43.8 mg/dL (0.00-0.90) 28.8 mg/dL (0.00-0.90) Total Protein 6.0 G/DL (6.4-8.2) 6.2 G/DL (6.4-8.2) Albumin 1.8 G/DL (3.4-5.0) 1.7 G/DL (3.4-5.0) Globulin 4.2 g/dL 4.5 g/dL Albumin/Globulin Ratio 0.4 (1.0-2.7) 0.4 (1.0-2.7) Uric Acid 2.1 MG/DL (2.6-7.2) Pro-B-Type Natriuretic Peptide 3167 pg/mL (0-125) Test 06/22/20 05:20 06/22/20 07:35 POC Whole Blood Glucose 109 MG/DL (74-106) Arterial Blood pH 7.469 (7.350-7.450) Arterial Blood Partial Pressure CO2 54.6 mmHg (35.0-45.0) Arterial Blood Partial Pressure O2 46.7 mmHg (75.0-100.0) Arterial Blood HCO3 38.8 mmol/L (22.0-26.0) Arterial Blood Oxygen Saturation 82.8 % (95-100) Arterial Blood Base Excess 13.4 (-2-2) Jeremiah Test Positive Height (Feet): 5 Height (Inches): 5.00 Weight (Pounds): 308 Objective Objective GeNL: nv Pulm: vent++ CV: rrr Abd: soft, nt, nd Ext: no cce Lanny Valle NP Jun 22, 2020 11:25
--- NOTE | 2020-06-22 11:55 | NUR ---
NURSE NOTES: Dr. Nava and Dr. Devine at bedside. With orders to try to decrease vent settings FiO2 to 70% and increase PEEP to 7. And if tolerated, ABG in 1 hour. Will inform RT/Bobbi regarding the order.
--- NOTE | 2020-06-22 11:59 | NUR ---
NURSE NOTES: RT/Bobbi at bedside, tried to decrease FiO2 to 70%, increased PEEP to 7, patient didn't tolerate the settings, HR noted to decrease and oxygen saturation decreased. Informed Dr. Nava with orders to keep PEEP of 7, and FiO2 back to 100%. Will continue to monitor.
--- NOTE | 2020-06-22 12:18 | Surgery Progress Note ---
Surgery Progress Note Subjective Additional Comments weaning vent discussed with guillermo shetty when stable Objective Last 24 Hour Vital Signs Date Time Temp Pulse Resp B/P (MAP) Pulse Ox O2 Delivery O2 Flow Rate FiO2 06/22/20 12:00 90 31 135/91 (106) 77 06/22/20 12:00 100 06/22/20 12:00 Mechanical Ventilator Mechanical Ventilator 06/22/20 11:34 26 06/22/20 11:00 29 Mechanical Ventilator 100 06/22/20 11:00 92 29 106/72 (83) 94 06/22/20 10:45 93 29 108/71 (83) 95 06/22/20 10:30 93 29 105/72 (83) 94 06/22/20 10:15 91 28 110/70 (83) 94 06/22/20 10:00 92 33 119/77 (91) 91 06/22/20 10:00 28 Mechanical Ventilator 100 06/22/20 09:45 28 Mechanical Ventilator 100 06/22/20 09:45 87 28 111/84 (93) 91 06/22/20 09:30 93 33 128/86 (100) 83 06/22/20 09:17 35 Mechanical Ventilator 100 06/22/20 09:00 33 Mechanical Ventilator 100 06/22/20 09:00 95 35 131/87 (102) 78 06/22/20 08:45 90 34 136/82 (100) 80 06/22/20 08:30 98 35 129/81 (97) 79 06/22/20 08:15 94 34 125/85 (98) 80 06/22/20 08:00 Mechanical Ventilator Mechanical Ventilator 06/22/20 08:00 100 06/22/20 08:00 33 Mechanical Ventilator 100 06/22/20 08:00 92 33 133/78 (96) 87 06/22/20 07:45 29 Mechanical Ventilator 100 06/22/20 07:45 97.8 90 29 125/81 (96) 92 06/22/20 07:37 94 06/22/20 07:28 92 29 100 06/22/20 07:00 86 24 114/71 (85) 89 06/22/20 07:00 30 Mechanical Ventilator 100 06/22/20 06:30 90 27 06/22/20 06:00 90 23 101/69 (80) 88 06/22/20 06:00 26 Mechanical Ventilator 100 06/22/20 05:00 96 26 105/67 (80) 90 06/22/20 05:00 25 Mechanical Ventilator 100 06/22/20 04:00 100 06/22/20 04:00 102 06/22/20 04:00 98.2 99 31 121/80 (94) 84 06/22/20 04:00 Mechanical Ventilator Mechanical Ventilator 06/22/20 04:00 31 Mechanical Ventilator 100 06/22/20 03:30 99 31 100 06/22/20 03:00 94 25 109/67 (81) 91 06/22/20 03:00 25 Mechanical Ventilator 100 06/22/20 02:00 102 27 96/64 (75) 97 06/22/20 02:00 25 Mechanical Ventilator 100 06/22/20 01:23 24 Mechanical Ventilator 100 06/22/20 01:15 34 Mechanical Ventilator 100 06/22/20 01:00 100 34 133/78 (96) 84 06/22/20 01:00 35 Mechanical Ventilator 100 06/22/20 00:00 100 06/22/20 00:00 100 06/22/20 00:00 35 Mechanical Ventilator 100 06/22/20 00:00 99.4 106 33 123/78 (93) 82 06/22/20 00:00 Mechanical Ventilator Mechanical Ventilator 06/21/20 23:30 100 26 100 06/21/20 23:00 24 Mechanical Ventilator 80 06/21/20 23:00 95 23 100/62 (75) 98 06/21/20 22:00 24 Mechanical Ventilator 80 06/21/20 22:00 96 22 100/54 (69) 98 06/21/20 21:00 25 Mechanical Ventilator 80 06/21/20 21:00 102 25 114/68 (83) 96 06/21/20 20:21 28 Mechanical Ventilator 80 06/21/20 20:00 80 06/21/20 20:00 99.0 97 22 115/66 (82) 97 06/21/20 20:00 102 06/21/20 20:00 25 Mechanical Ventilator 90 06/21/20 20:00 Mechanical Ventilator Mechanical Ventilator 06/21/20 19:09 103 25 90 06/21/20 19:00 104 25 103/68 (80) 100 06/21/20 19:00 25 Mechanical Ventilator 90 06/21/20 18:30 96 19 89/62 (71) 100 1/29/21 18:00 96 18 94/50 (65) 100 06/21/20 18:00 19 Mechanical Ventilator 90 06/21/20 17:30 96 18 94/57 (69) 100 06/21/20 17:00 97 26 100/42 (61) 99 06/21/20 17:00 25 Mechanical Ventilator 90 06/21/20 16:30 103 19 111/69 (83) 97 06/21/20 16:00 100 06/21/20 16:00 98.9 107 25 107/65 (79) 99 06/21/20 16:00 Mechanical Ventilator Mechanical Ventilator 06/21/20 16:00 19 Mechanical Ventilator 90 06/21/20 16:00 105 06/21/20 15:30 105 25 98/59 (72) 100 06/21/20 15:00 104 20 94/52 (66) 100 06/21/20 15:00 25 Mechanical Ventilator 100 06/21/20 15:00 99 21 90 06/21/20 14:30 109 24 95/59 (71) 100 06/21/20 14:00 111 24 109/64 (79) 100 06/21/20 14:00 24 Mechanical Ventilator 100 06/21/20 13:30 114 27 117/68 (84) 100 06/21/20 13:00 28 100 06/21/20 13:00 111 30 138/99 (112) 94 06/21/20 12:49 99.9 06/21/20 12:48 110 30 100 06/21/20 12:30 113 31 146/78 (100) 97 I&O Intake and Output 06/21/20 06/22/20 19:00 07:00 Intake Total 1158 ml 508.3 ml Output Total 1710 ml 480 ml Balance -552 ml 28.3 ml IV Total 438 ml 253.3 ml Tube Feeding 720 ml 240 ml Other 15 ml Output Urine Total 1710 ml 460 ml Stool Total 20 ml # Bowel Movements 1 Cardiovascular: RSR Respiratory: decreased breath sounds Abdomen: non-tender, present bowel sounds Extremities: edema, no tenderness, no cyanosis Laboratory Tests Test 06/21/20 12:28 06/21/20 17:55 06/21/20 23:11 06/22/20 03:40 POC Whole Blood Glucose Pending 129 MG/DL (74-106) H Pending White Blood Count 9.0 K/UL (4.8-10.8) Red Blood Count 2.67 M/UL (4.20-5.40) L Hemoglobin 8.0 G/DL (12.0-16.0) L Hematocrit 24.8 % (37.0-47.0) L Mean Corpuscular Volume 93 FL (80-99) Mean Corpuscular Hemoglobin 30.1 PG (27.0-31.0) Mean Corpuscular Hemoglobin Concent 32.4 G/DL (32.0-36.0) Red Cell Distribution Width 16.5 % (11.6-14.8) H Platelet Count 190 K/UL (150-450) Mean Platelet Volume 8.0 FL (6.5-10.1) Neutrophils (%) (Auto) 73.6 % (45.0-75.0) Lymphocytes (%) (Auto) 15.4 % (20.0-45.0) L Monocytes (%) (Auto) 1.8 % (1.0-10.0) Eosinophils (%) (Auto) 8.7 % (0.0-3.0) H Basophils (%) (Auto) 0.4 % (0.0-2.0) Sodium Level 143 MMOL/L (136-145) Potassium Level 3.3 MMOL/L (3.5-5.1) L Chloride Level 102 MMOL/L (98-107) Carbon Dioxide Level 38 MMOL/L (21-32) H Anion Gap 3 mmol/L (5-15) L Blood Urea Nitrogen 26 mg/dL (7-18) H Creatinine 0.5 MG/DL (0.55-1.30) L Estimat Glomerular Filtration Rate > 60 mL/min (>60) Glucose Level 98 MG/DL (74-106) Uric Acid 2.1 MG/DL (2.6-7.2) L Calcium Level 8.6 MG/DL (8.5-10.1) Phosphorus Level 2.6 MG/DL (2.5-4.9) Magnesium Level 1.8 MG/DL (1.8-2.4) Total Bilirubin 0.9 MG/DL (0.2-1.0) Aspartate Amino Transf (AST/SGOT) 30 U/L (15-37) Alanine Aminotransferase (ALT/SGPT) 21 U/L (12-78) Alkaline Phosphatase 72 U/L (46-116) C-Reactive Protein, Quantitative 28.8 mg/dL (0.00-0.90) H Pro-B-Type Natriuretic Peptide 3167 pg/mL (0-125) H Total Protein 6.2 G/DL (6.4-8.2) L Albumin 1.7 G/DL (3.4-5.0) L Globulin 4.5 g/dL Albumin/Globulin Ratio 0.4 (1.0-2.7) L Test 06/22/20 05:20 06/22/20 07:35 06/22/20 11:37 POC Whole Blood Glucose 109 MG/DL (74-106) H 130 MG/DL (74-106) H Arterial Blood pH 7.469 (7.350-7.450) Arterial Blood Partial Pressure CO2 54.6 mmHg (35.0-45.0) H Arterial Blood Partial Pressure O2 46.7 mmHg (75.0-100.0) Arterial Blood HCO3 38.8 mmol/L (22.0-26.0) H Arterial Blood Oxygen Saturation 82.8 % (95-100) *L Arterial Blood Base Excess 13.4 (-2-2) *H Jeremiah Test Positive Plan Problems: (1) Respiratory distress (2) Respiratory failure Assessment & Plan: 50-year-old female Covid positive respiratory insufficiency intubated on ventilatory support declining. Leukocytosis increase oxygen requirement. Vent settings per pulmonology reviewed identified and agree. Unfortunately further surgical invention at this time is not appropriate as patient is not a candidate and her current condition. Prognosis overall guarded. Tracheostomy can be considered in the future if recovering or shows improvement and requires unable to be weaned from ventilator support. Currently okay for nutritional optimization with NG tube. Will need significant monitoring for decubitus formation given patient's size and condition. Okay for air mattress tolerated. Turn every 2 hours as tolerated. Patient is otherwise critically ill and blood pressure labile. Will need to monitor closely.Bilateral infiltrates are again demonstrated. Stable tube and line positions. will need trach will need to wean vent first (3) Hypoxia (4) Pneumonia due to COVID-19 virus Assessment & Plan: ++ as per pulm and ID (5) Diabetes mellitus out of control Assessment & Plan: DAILY ESTIMATED NEEDS: Needs based on Critical care, obesity 11-14kcal/kg actual body wt (140kg) kcals/kg 5346-1125 total kcals 1.5-2.0g prot/kg IBW (64.5kg) g protein/kg 96-129 g total protein 25-30ml/kg abw (83kg) mL/kg 8636-6534 total fluid mLs NUTRITION DIAGNOSIS: Swallowing difficulty R/T respiratory failure as evidenced by pt orally intubated and sedated, on OGT feeds. CURRENT TF: Vital 1.2 goal of 60ml/hr ENTERAL NUTRITION RECOMMENDATIONS: Vital AF 1.2 @ 60ml/hr x 24 hrs to provide 1440ml, 1728kcal, 108g prot, 1168ml free water * Maintain current critical care and carb controlled TF formula of Vital AF * TF @ goal meeds 100% est kcal/prot needs * HOB over 30 degrees/ water flush per MD TF may be lowered to 55ml/hr for improved BG control while maintaining Kcal and pro needs. ADDITIONAL RECOMMENDATIONS: * Calibrated bedscale wt * Monitor Propofol rate, need for TF adjustment-> now off * Monitor BGs closely : now improved, on novolog q 6rs + NISS * Monitor lytes- K elevated, monitor need for TF change * Rec bowel regimen- now w/ rectal tube . Az Devine Jun 22, 2020 12:18
--- NOTE | 2020-06-22 12:25 | Pulmonology Progress Note ---
Subjective ROS Limited/Unobtainable: Yes Interval Events: Remains intubated Constitutional: Reports: fever, other - T=103 HEENT: Repors: no symptoms Respiratory: Reports: no symptoms Cardiovascular: Reports: no symptoms Gastrointestinal/Abdominal: Reports: no symptoms Genitourinary: Reports: no symptoms Allergies: Coded Allergies: No Known Allergies (Unverified , 05/28/20) All Systems: reviewed and negative except above Objective Last 24 Hour Vital Signs Date Time Temp Pulse Resp B/P (MAP) Pulse Ox O2 Delivery O2 Flow Rate FiO2 06/22/20 12:00 90 31 135/91 (106) 77 06/22/20 12:00 100 06/22/20 12:00 Mechanical Ventilator Mechanical Ventilator 06/22/20 11:34 26 06/22/20 11:00 29 Mechanical Ventilator 100 06/22/20 11:00 92 29 106/72 (83) 94 06/22/20 10:45 93 29 108/71 (83) 95 06/22/20 10:30 93 29 105/72 (83) 94 06/22/20 10:15 91 28 110/70 (83) 94 06/22/20 10:00 92 33 119/77 (91) 91 06/22/20 10:00 28 Mechanical Ventilator 100 06/22/20 09:45 28 Mechanical Ventilator 100 06/22/20 09:45 87 28 111/84 (93) 91 06/22/20 09:30 93 33 128/86 (100) 83 06/22/20 09:17 35 Mechanical Ventilator 100 06/22/20 09:00 33 Mechanical Ventilator 100 06/22/20 09:00 95 35 131/87 (102) 78 06/22/20 08:45 90 34 136/82 (100) 80 06/22/20 08:30 98 35 129/81 (97) 79 06/22/20 08:15 94 34 125/85 (98) 80 06/22/20 08:00 Mechanical Ventilator Mechanical Ventilator 06/22/20 08:00 100 06/22/20 08:00 33 Mechanical Ventilator 100 06/22/20 08:00 92 33 133/78 (96) 87 06/22/20 07:45 29 Mechanical Ventilator 100 06/22/20 07:45 97.8 90 29 125/81 (96) 92 06/22/20 07:37 94 06/22/20 07:28 92 29 100 06/22/20 07:00 86 24 114/71 (85) 89 06/22/20 07:00 30 Mechanical Ventilator 100 06/22/20 06:30 90 27 06/22/20 06:00 90 23 101/69 (80) 88 06/22/20 06:00 26 Mechanical Ventilator 100 06/22/20 05:00 96 26 105/67 (80) 90 06/22/20 05:00 25 Mechanical Ventilator 100 06/22/20 04:00 100 06/22/20 04:00 102 06/22/20 04:00 98.2 99 31 121/80 (94) 84 06/22/20 04:00 Mechanical Ventilator Mechanical Ventilator 06/22/20 04:00 31 Mechanical Ventilator 100 06/22/20 03:30 99 31 100 06/22/20 03:00 94 25 109/67 (81) 91 06/22/20 03:00 25 Mechanical Ventilator 100 06/22/20 02:00 102 27 96/64 (75) 97 06/22/20 02:00 25 Mechanical Ventilator 100 06/22/20 01:23 24 Mechanical Ventilator 100 06/22/20 01:15 34 Mechanical Ventilator 100 06/22/20 01:00 100 34 133/78 (96) 84 06/22/20 01:00 35 Mechanical Ventilator 100 06/22/20 00:00 100 06/22/20 00:00 100 06/22/20 00:00 35 Mechanical Ventilator 100 06/22/20 00:00 99.4 106 33 123/78 (93) 82 06/22/20 00:00 Mechanical Ventilator Mechanical Ventilator 06/21/20 23:30 100 26 100 06/21/20 23:00 24 Mechanical Ventilator 80 06/21/20 23:00 95 23 100/62 (75) 98 06/21/20 22:00 24 Mechanical Ventilator 80 06/21/20 22:00 96 22 100/54 (69) 98 06/21/20 21:00 25 Mechanical Ventilator 80 06/21/20 21:00 102 25 114/68 (83) 96 06/21/20 20:21 28 Mechanical Ventilator 80 06/21/20 20:00 80 06/21/20 20:00 99.0 97 22 115/66 (82) 97 06/21/20 20:00 102 06/21/20 20:00 25 Mechanical Ventilator 90 06/21/20 20:00 Mechanical Ventilator Mechanical Ventilator 06/21/20 19:09 103 25 90 06/21/20 19:00 104 25 103/68 (80) 100 06/21/20 19:00 25 Mechanical Ventilator 90 06/21/20 18:30 96 19 89/62 (71) 100 06/21/20 18:00 96 18 94/50 (65) 100 06/21/20 18:00 19 Mechanical Ventilator 90 06/21/20 17:30 96 18 94/57 (69) 100 06/21/20 17:00 97 26 100/42 (61) 99 06/21/20 17:00 25 Mechanical Ventilator 90 06/21/20 16:30 103 19 111/69 (83) 97 06/21/20 16:00 100 06/21/20 16:00 98.9 107 25 107/65 (79) 99 06/21/20 16:00 Mechanical Ventilator Mechanical Ventilator 06/21/20 16:00 19 Mechanical Ventilator 90 06/21/20 16:00 105 06/21/20 15:30 105 25 98/59 (72) 100 06/21/20 15:00 104 20 94/52 (66) 100 06/21/20 15:00 25 Mechanical Ventilator 100 06/21/20 15:00 99 21 90 06/21/20 14:30 109 24 95/59 (71) 100 06/21/20 14:00 111 24 109/64 (79) 100 06/21/20 14:00 24 Mechanical Ventilator 100 06/21/20 13:30 114 27 117/68 (84) 100 06/21/20 13:00 28 100 06/21/20 13:00 111 30 138/99 (112) 94 06/21/20 12:49 99.9 06/21/20 12:48 110 30 100 06/21/20 12:30 113 31 146/78 (100) 97 Intake and Output 06/21/20 06/22/20 19:00 07:00 Intake Total 1158 ml 508.3 ml Output Total 1710 ml 480 ml Balance -552 ml 28.3 ml IV Total 438 ml 253.3 ml Tube Feeding 720 ml 240 ml Other 15 ml Output Urine Total 1710 ml 460 ml Stool Total 20 ml # Bowel Movements 1 General Appearance: no acute distress HEENT: normocephalic Respiratory: chest wall non-tender Cardiovascular: normal peripheral pulses Abdomen: normal bowel sounds Laboratory Tests 06/21/20 12:28: POC Whole Blood Glucose [Pending] 06/21/20 17:55: POC Whole Blood Glucose 129H 06/21/20 23:11: POC Whole Blood Glucose [Pending] 06/22/20 03:40: White Blood Count 9.0, Red Blood Count 2.67L, Hemoglobin 8.0L, Hematocrit 24.8L, Mean Corpuscular Volume 93, Mean Corpuscular Hemoglobin 30.1, Mean Corpuscular Hemoglobin Concent 32.4, Red Cell Distribution Width 16.5H, Platelet Count 190, Mean Platelet Volume 8.0, Neutrophils (%) (Auto) 73.6, Lymphocytes (%) (Auto) 15.4L, Monocytes (%) (Auto) 1.8, Eosinophils (%) (Auto) 8.7H, Basophils (%) (Auto) 0.4, Sodium Level 143, Potassium Level 3.3L, Chloride Level 102, Carbon Dioxide Level 38H, Anion Gap 3L, Blood Urea Nitrogen 26H, Creatinine 0.5L, Estimat Glomerular Filtration Rate > 60, Glucose Level 98, Uric Acid 2.1L, Calcium Level 8.6, Phosphorus Level 2.6, Magnesium Level 1.8, Total Bilirubin 0. 9, Aspartate Amino Transf (AST/SGOT) 30, Alanine Aminotransferase (ALT/SGPT) 21, Alkaline Phosphatase 72, C-Reactive Protein, Quantitative 28.8H, Pro-B-Type Natriuretic Peptide 3167H, Total Protein 6.2L, Albumin 1.7L, Globulin 4.5, Albumin/Globulin Ratio 0.4L 06/22/20 05:20: POC Whole Blood Glucose 109H 06/22/20 07:35: Arterial Blood pH 7.469H, Arterial Blood Partial Pressure CO2 54.6H, Arterial Blood Partial Pressure O2 46.7*L, Arterial Blood HCO3 38.8H, Arterial Blood Oxygen Saturation 82.8*L, Arterial Blood Base Excess 13.4*H, Jeremiah Test Positive 06/22/20 11:37: POC Whole Blood Glucose 130H Current Medications Medications (Trade) Dose Ordered Sig/Zelda Route PRN Reason Start Time Stop Time Status Last Admin Dose Admin Acetaminophen (Tylenol) 650 mg Q4H PRN NG Temp >100.5 05/31/20 21:45 06/30/20 21:44 06/21/20 12:19 Acetaminophen (Tylenol) 650 mg Q6H PRN NG Mild Pain (Pain Scale 1-3) 06/06/20 18:00 07/06/20 17:59 06/13/20 23:10 Chlorhexidine Gluconate (Inna-Hex 2%) 1 applic DAILY@2000 TOPIC 05/30/20 20:00 08/28/20 19:59 06/21/20 20:06 Dextrose (Dextrose 50%) 25 ml Q30M PRN IV Hypoglycemia 06/05/20 10:45 09/03/20 10:44 Dextrose (Dextrose 50%) 50 ml Q30M PRN IV Hypoglycemia 06/05/20 10:45 09/03/20 10:44 Docusate Sodium (Colace) 100 mg Q12HR GT 06/07/20 21:00 07/07/20 20:59 06/20/20 21:18 Enoxaparin Sodium (Lovenox) 40 mg DAILY SUBQ 05/30/20 10:00 08/28/20 09:59 06/22/20 08:14 Furosemide (Lasix) 40 mg DAILY IV 06/22/20 09:00 07/22/20 08:59 06/22/20 08:13 Insulin Aspart (NovoLOG) EVERY 6 HOURS SUBQ 06/07/20 00:00 09/03/20 11:59 06/21/20 12:00 Insulin Aspart (NovoLOG) 10 units EVERY 6 HOURS SUBQ 06/21/20 12:00 09/04/20 08:59 06/21/20 18:00 Midazolam HCl 100 mg/Sodium Chloride 200 ml @ 0 mls/hr Q24H PRN IV sedation 06/22/20 01:00 06/23/20 11:29 06/22/20 09:17 Midodrine (Pro-Amatine) 10 mg Q8HR ORAL 06/14/20 14:00 09/12/20 13:59 06/22/20 05:45 Pantoprazole (Protonix) 40 mg Q12HR IVP 06/13/20 21:00 07/03/20 08:59 06/22/20 08:13 Phosphorus (Phospha 250 Neutral) 500 mg THREE TIMES A DAY NG 06/21/20 09:30 07/21/20 09:29 06/21/20 17:29 Polyethylene Glycol (Miralax) 17 gm BEDTIME GT 06/07/20 21:00 07/07/20 20:59 06/17/20 21:02 Assessment/Plan Assessment/Plan 1. COVID-19 pneumonia -Intubated 05/28/20 - We will continue broad-spectrum antibiotics. - On solumedrol -On Rocephin -Continue monitoring SaO2 and keep it >92% -Continue PEEP 10->8; Will decrease to 7 - Peak airway pressures high; approx 48 now - FiO2 100% -> 90 ->80->60 ->40 ->80 ->100%; -will continue OGT feeding -Continue sedation -Need to keep patient completely sedated. 2. Hyponatremia -Per primary MD 3. Elevated inflammatory markers - has high D dimer; Lovenox on hold due to hematuria 4. Decrease PEEP Continue weaning efforts May need trach Discussed with surgery Currently FiO2 too high for safe tracheostomy Javier Nava MD Jun 22, 2020 12:25
--- NOTE | 2020-06-22 12:47 | General Progress Note ---
Subjective ROS Limited/Unobtainable: Yes Allergies: Coded Allergies: No Known Allergies (Unverified , 05/28/20) Subjective events noted interval notes reviewed glucose values are stable intubated in ICU Item Value Date Time Bedside Blood Glucose 130 mg/dl H 06/22/20 1145 Bedside Blood Glucose 109 mg/dl 06/22/20 0600 Bedside Blood Glucose 130 mg/dl H 06/22/20 0000 Objective Last 24 Hour Vital Signs Date Time Temp Pulse Resp B/P (MAP) Pulse Ox O2 Delivery O2 Flow Rate FiO2 06/22/20 12:00 90 31 135/91 (106) 77 06/22/20 12:00 31 Mechanical Ventilator 100 06/22/20 12:00 100 06/22/20 12:00 Mechanical Ventilator Mechanical Ventilator 06/22/20 11:34 26 06/22/20 11:19 91 32 100 06/22/20 11:00 29 Mechanical Ventilator 100 06/22/20 11:00 92 29 106/72 (83) 94 06/22/20 10:45 93 29 108/71 (83) 95 06/22/20 10:30 93 29 105/72 (83) 94 06/22/20 10:15 91 28 110/70 (83) 94 06/22/20 10:00 92 33 119/77 (91) 91 06/22/20 10:00 28 Mechanical Ventilator 100 06/22/20 09:45 28 Mechanical Ventilator 100 06/22/20 09:45 87 28 111/84 (93) 91 06/22/20 09:34 96 31 100 06/22/20 09:30 93 33 128/86 (100) 83 06/22/20 09:17 35 Mechanical Ventilator 100 06/22/20 09:00 33 Mechanical Ventilator 100 06/22/20 09:00 95 35 131/87 (102) 78 06/22/20 08:45 90 34 136/82 (100) 80 06/22/20 08:30 98 35 129/81 (97) 79 06/22/20 08:15 94 34 125/85 (98) 80 06/22/20 08:00 Mechanical Ventilator Mechanical Ventilator 06/22/20 08:00 100 06/22/20 08:00 33 Mechanical Ventilator 100 06/22/20 08:00 92 33 133/78 (96) 87 06/22/20 07:45 29 Mechanical Ventilator 100 06/22/20 07:45 97.8 90 29 125/81 (96) 92 06/22/20 07:37 94 06/22/20 07:28 92 29 100 06/22/20 07:00 86 24 114/71 (85) 89 06/22/20 07:00 30 Mechanical Ventilator 100 06/22/20 06:30 90 27 06/22/20 06:00 90 23 101/69 (80) 88 06/22/20 06:00 26 Mechanical Ventilator 100 06/22/20 05:00 96 26 105/67 (80) 90 06/22/20 05:00 25 Mechanical Ventilator 100 06/22/20 04:00 100 06/22/20 04:00 102 06/22/20 04:00 98.2 99 31 121/80 (94) 84 06/22/20 04:00 Mechanical Ventilator Mechanical Ventilator 06/22/20 04:00 31 Mechanical Ventilator 100 06/22/20 03:30 99 31 100 06/22/20 03:00 94 25 109/67 (81) 91 06/22/20 03:00 25 Mechanical Ventilator 100 06/22/20 02:00 102 27 96/64 (75) 97 06/22/20 02:00 25 Mechanical Ventilator 100 06/22/20 01:23 24 Mechanical Ventilator 100 06/22/20 01:15 34 Mechanical Ventilator 100 06/22/20 01:00 100 34 133/78 (96) 84 06/22/20 01:00 35 Mechanical Ventilator 100 06/22/20 00:00 100 06/22/20 00:00 100 06/22/20 00:00 35 Mechanical Ventilator 100 06/22/20 00:00 99.4 106 33 123/78 (93) 82 06/22/20 00:00 Mechanical Ventilator Mechanical Ventilator 06/21/20 23:30 100 26 100 06/21/20 23:00 24 Mechanical Ventilator 80 06/21/20 23:00 95 23 100/62 (75) 98 06/21/20 22:00 24 Mechanical Ventilator 80 06/21/20 22:00 96 22 100/54 (69) 98 06/21/20 21:00 25 Mechanical Ventilator 80 06/21/20 21:00 102 25 114/68 (83) 96 06/21/20 20:21 28 Mechanical Ventilator 80 06/21/20 20:00 80 1/29/21 20:00 99.0 97 22 115/66 (82) 97 06/21/20 20:00 102 06/21/20 20:00 25 Mechanical Ventilator 90 06/21/20 20:00 Mechanical Ventilator Mechanical Ventilator 06/21/20 19:09 103 25 90 06/21/20 19:00 104 25 103/68 (80) 100 06/21/20 19:00 25 Mechanical Ventilator 90 06/21/20 18:30 96 19 89/62 (71) 100 06/21/20 18:00 96 18 94/50 (65) 100 06/21/20 18:00 19 Mechanical Ventilator 90 06/21/20 17:30 96 18 94/57 (69) 100 06/21/20 17:00 97 26 100/42 (61) 99 06/21/20 17:00 25 Mechanical Ventilator 90 06/21/20 16:30 103 19 111/69 (83) 97 06/21/20 16:00 100 06/21/20 16:00 98.9 107 25 107/65 (79) 99 06/21/20 16:00 Mechanical Ventilator Mechanical Ventilator 06/21/20 16:00 19 Mechanical Ventilator 90 06/21/20 16:00 105 06/21/20 15:30 105 25 98/59 (72) 100 06/21/20 15:00 104 20 94/52 (66) 100 06/21/20 15:00 25 Mechanical Ventilator 100 06/21/20 15:00 99 21 90 06/21/20 14:30 109 24 95/59 (71) 100 06/21/20 14:00 111 24 109/64 (79) 100 06/21/20 14:00 24 Mechanical Ventilator 100 06/21/20 13:30 114 27 117/68 (84) 100 06/21/20 13:00 28 100 06/21/20 13:00 111 30 138/99 (112) 94 06/21/20 12:49 99.9 06/21/20 12:48 110 30 100 Intake and Output 06/21/20 06/22/20 19:00 07:00 Intake Total 1158 ml 508.3 ml Output Total 1710 ml 480 ml Balance -552 ml 28.3 ml IV Total 438 ml 253.3 ml Tube Feeding 720 ml 240 ml Other 15 ml Output Urine Total 1710 ml 460 ml Stool Total 20 ml # Bowel Movements 1 Laboratory Tests 06/21/20 17:55: POC Whole Blood Glucose 129H 06/21/20 23:11: POC Whole Blood Glucose [Pending] 06/22/20 03:40: White Blood Count 9.0, Red Blood Count 2.67L, Hemoglobin 8.0L, Hematocrit 24.8L, Mean Corpuscular Volume 93, Mean Corpuscular Hemoglobin 30.1, Mean Corpuscular Hemoglobin Concent 32.4, Red Cell Distribution Width 16.5H, Platelet Count 190, Mean Platelet Volume 8.0, Neutrophils (%) (Auto) 73.6, Lymphocytes (%) (Auto) 15.4L, Monocytes (%) (Auto) 1.8, Eosinophils (%) (Auto) 8.7H, Basophils (%) (Auto) 0.4, Sodium Level 143, Potassium Level 3.3L, Chloride Level 102, Carbon Dioxide Level 38H, Anion Gap 3L, Blood Urea Nitrogen 26H, Creatinine 0.5L, Estimat Glomerular Filtration Rate > 60, Glucose Level 98, Uric Acid 2.1L, Calcium Level 8.6, Phosphorus Level 2.6, Magnesium Level 1.8, Total Bilirubin 0.9, Aspartate Amino Transf (AST/SGOT) 30, Alanine Aminotransferase (ALT/SGPT) 21, Alkaline Phosphatase 72, C-Reactive Protein, Quantitative 28.8H, Pro-B-Type Natriuretic Peptide 3167H, Total Protein 6.2L, Albumin 1.7L, Globulin 4.5, Albumin/Globulin Ratio 0.4L 06/22/20 05:20: POC Whole Blood Glucose 109H 06/22/20 07:35: Arterial Blood pH 7.469H, Arterial Blood Partial Pressure CO2 54.6H, Arterial Blood Partial Pressure O2 46.7*L, Arterial Blood HCO3 38.8H, Arterial Blood Oxygen Saturation 82.8*L, Arterial Blood Base Excess 13.4*H, Jeremiah Test Positive 06/22/20 11:37: POC Whole Blood Glucose 130H Height (Feet): 5 Height (Inches): 5.00 Weight (Pounds): 308 Objective Current Medications Medications (Trade) Dose Ordered Sig/Zelda Route PRN Reason Start Time Stop Time Status Last Admin Dose Admin Acetaminophen (Tylenol) 650 mg Q4H PRN NG Temp >100.5 05/31/20 21:45 06/30/20 21:44 06/21/20 12:19 Acetaminophen (Tylenol) 650 mg Q6H PRN NG Mild Pain (Pain Scale 1-3) 06/06/20 18:00 07/06/20 17:59 06/13/20 23:10 Chlorhexidine Gluconate (Inna-Hex 2%) 1 applic DAILY@2000 TOPIC 05/30/20 20:00 08/28/20 19:59 06/21/20 20:06 Dextrose (Dextrose 50%) 25 ml Q30M PRN IV Hypoglycemia 06/05/20 10:45 09/03/20 10:44 Dextrose (Dextrose 50%) 50 ml Q30M PRN IV Hypoglycemia 06/05/20 10:45 09/03/20 10:44 Docusate Sodium (Colace) 100 mg Q12HR GT 06/07/20 21:00 07/07/20 20:59 06/20/20 21:18 Enoxaparin Sodium (Lovenox) 40 mg DAILY SUBQ 05/30/20 10:00 08/28/20 09:59 06/22/20 08:14 Furosemide (Lasix) 40 mg DAILY IV 06/22/20 09:00 07/22/20 08:59 06/22/20 08:13 Insulin Aspart (NovoLOG) EVERY 6 HOURS SUBQ 06/07/20 00:00 09/03/20 11:59 06/21/20 12:00 Insulin Aspart (NovoLOG) 10 units EVERY 6 HOURS SUBQ 06/21/20 12:00 09/04/20 08:59 06/21/20 18:00 Midazolam HCl 100 mg/Sodium Chloride 200 ml @ 0 mls/hr Q24H PRN IV sedation 06/22/20 01:00 06/23/20 11:29 06/22/20 09:17 Midodrine (Pro-Amatine) 10 mg Q8HR ORAL 06/14/20 14:00 09/12/20 13:59 06/22/20 05:45 Pantoprazole (Protonix) 40 mg Q12HR IVP 06/13/20 21:00 07/03/20 08:59 06/22/20 08:13 Phosphorus (Phospha 250 Neutral) 500 mg THREE TIMES A DAY NG 06/21/20 09:30 07/21/20 09:29 06/21/20 17:29 Polyethylene Glycol (Miralax) 17 gm BEDTIME GT 06/07/20 21:00 07/07/20 20:59 06/17/20 21:02 Assessment/Plan Problem List: (1) Diabetes mellitus out of control ICD Codes: E11.65 - Type 2 diabetes mellitus with hyperglycemia SNOMED: 59668435, 467802134 (2) Pneumonia due to COVID-19 virus ICD Codes: U07.1 - COVID-19; J12.82 - Pneumonia due to coronavirus disease 2019 SNOMED: 516449368448156178 (3) Respiratory distress ICD Codes: R06.03 - Acute respiratory distress; J12.82 - Pneumonia due to coronavirus disease 2019 SNOMED: 952499920 Status: unchanged Assessment/Plan: DC Novolog 10 units every 6 hours continue Novolog sliding scale every 6 hours Huber Adame MD Jun 22, 2020 12:47
--- NOTE | 2020-06-22 13:00 | NUR ---
NURSE NOTES: Dr. Tyler at bedside. Informed regarding today's lab results, and he said that he will check patient's chart. Informed MD that patient's tube feeding is on hold due to unable to adjust head of bed position to certain angle for tube feeding. And Dr. Tyler made aware that Phosphorus scheduled medications non administered today.
--- NOTE | 2020-06-22 13:41 | Nephrology Progress Note ---
Assessment/Plan Problem List: (1) DEVENDRA (acute kidney injury) (2) Morbid obesity (3) Diabetes mellitus out of control (4) Pneumonia due to COVID-19 virus (5) Respiratory failure Assessment Acute renal failure Obstructive uropathy, clogged Lennon Respiratory failure COVID-19 pneumonia Morbid obesity Plan June 22: Labs reviewed. Low potassium addressed. Discussed with RAKEL Moran. Patient full code. Remains on ventilator. Continue to monitor renal parameters. June 21. Labs reviewed. Abnormal electrolyte addressed. Full code. Remains on ventilator. Medication list reviewed. Continue per pulmonary management. DC IV fluid, resume Lasix daily, check chest x-ray. June 20: Labs reviewed. Abnormal electrolytes. Patient remains full code. Continue per consultants. Noted and addressed June 19: Labs reviewed. Abnormal electrolytes noted and addressed. Remains intubated on ventilator. Remains full code. June 18: Labs reviewed. Remains intubated on ventilator. Full code. Abnormal electrolyte addressed. Continue as is. June 17: Labs reviewed. Abnormal electrolytes addressed. Patient remains full code and intubated on ventilator. Continue per consultants. Renal parameters are within normal limits. June 16: Labs reviewed. Potassium chloride replaced. Remains full code. Remains intubated on ventilator. Continue per consultants. Continue to monitor renal parameters. June 15: Labs reviewed. Serum creatinine 1. Stable from renal standpoint to view. Continue per consultants. June 14: Labs reviewed. Full code. Serum creatinine of 3.5 down to 1.4. Low potassium addressed. Continue per current treatment plan. Continue to monitor renal parameters. Midodrine started. Albumin bolus given. Previously: DC Lasix drip Increase Protonix dose Monitor renal parameters, electrolytes Per orders Subjective ROS Limited/Unobtainable: Yes Objective Objective Last 24 Hour Vital Signs Date Time Temp Pulse Resp B/P (MAP) Pulse Ox O2 Delivery O2 Flow Rate FiO2 06/22/20 12:00 90 31 135/91 (106) 77 06/22/20 12:00 31 Mechanical Ventilator 100 06/22/20 12:00 100 06/22/20 12:00 Mechanical Ventilator Mechanical Ventilator 06/22/20 11:34 26 06/22/20 11:19 91 32 100 06/22/20 11:00 29 Mechanical Ventilator 100 06/22/20 11:00 92 29 106/72 (83) 94 06/22/20 10:45 93 29 108/71 (83) 95 06/22/20 10:30 93 29 105/72 (83) 94 06/22/20 10:15 91 28 110/70 (83) 94 06/22/20 10:00 92 33 119/77 (91) 91 06/22/20 10:00 28 Mechanical Ventilator 100 06/22/20 09:45 28 Mechanical Ventilator 100 06/22/20 09:45 87 28 111/84 (93) 91 06/22/20 09:34 96 31 100 06/22/20 09:30 93 33 128/86 (100) 83 06/22/20 09:17 35 Mechanical Ventilator 100 06/22/20 09:00 33 Mechanical Ventilator 100 06/22/20 09:00 95 35 131/87 (102) 78 06/22/20 08:45 90 34 136/82 (100) 80 06/22/20 08:30 98 35 129/81 (97) 79 06/22/20 08:15 94 34 125/85 (98) 80 06/22/20 08:00 Mechanical Ventilator Mechanical Ventilator 06/22/20 08:00 100 06/22/20 08:00 33 Mechanical Ventilator 100 06/22/20 08:00 92 33 133/78 (96) 87 06/22/20 07:45 29 Mechanical Ventilator 100 06/22/20 07:45 97.8 90 29 125/81 (96) 92 06/22/20 07:37 94 06/22/20 07:28 92 29 100 06/22/20 07:00 86 24 114/71 (85) 89 06/22/20 07:00 30 Mechanical Ventilator 100 06/22/20 06:30 90 27 06/22/20 06:00 90 23 101/69 (80) 88 06/22/20 06:00 26 Mechanical Ventilator 100 06/22/20 05:00 96 26 105/67 (80) 90 06/22/20 05:00 25 Mechanical Ventilator 100 06/22/20 04:00 100 06/22/20 04:00 102 06/22/20 04:00 98.2 99 31 121/80 (94) 84 06/22/20 04:00 Mechanical Ventilator Mechanical Ventilator 06/22/20 04:00 31 Mechanical Ventilator 100 06/22/20 03:30 99 31 100 06/22/20 03:00 94 25 109/67 (81) 91 06/22/20 03:00 25 Mechanical Ventilator 100 06/22/20 02:00 102 27 96/64 (75) 97 06/22/20 02:00 25 Mechanical Ventilator 100 06/22/20 01:23 24 Mechanical Ventilator 100 06/22/20 01:15 34 Mechanical Ventilator 100 06/22/20 01:00 100 34 133/78 (96) 84 06/22/20 01:00 35 Mechanical Ventilator 100 06/22/20 00:00 100 06/22/20 00:00 100 06/22/20 00:00 35 Mechanical Ventilator 100 06/22/20 00:00 99.4 106 33 123/78 (93) 82 06/22/20 00:00 Mechanical Ventilator Mechanical Ventilator 06/21/20 23:30 100 26 100 06/21/20 23:00 24 Mechanical Ventilator 80 06/21/20 23:00 95 23 100/62 (75) 98 06/21/20 22:00 24 Mechanical Ventilator 80 06/21/20 22:00 96 22 100/54 (69) 98 06/21/20 21:00 25 Mechanical Ventilator 80 06/21/20 21:00 102 25 114/68 (83) 96 06/21/20 20:21 28 Mechanical Ventilator 80 06/21/20 20:00 80 06/21/20 20:00 99.0 97 22 115/66 (82) 97 06/21/20 20:00 102 06/21/20 20:00 25 Mechanical Ventilator 90 06/21/20 20:00 Mechanical Ventilator Mechanical Ventilator 06/21/20 19:09 103 25 90 06/21/20 19:00 104 25 103/68 (80) 100 06/21/20 19:00 25 Mechanical Ventilator 90 06/21/20 18:30 96 19 89/62 (71) 100 06/21/20 18:00 96 18 94/50 (65) 100 06/21/20 18:00 19 Mechanical Ventilator 90 06/21/20 17:30 96 18 94/57 (69) 100 06/21/20 17:00 97 26 100/42 (61) 99 06/21/20 17:00 25 Mechanical Ventilator 90 06/21/20 16:30 103 19 111/69 (83) 97 06/21/20 16:00 100 06/21/20 16:00 98.9 107 25 107/65 (79) 99 06/21/20 16:00 Mechanical Ventilator Mechanical Ventilator 06/21/20 16:00 19 Mechanical Ventilator 90 06/21/20 16:00 105 06/21/20 15:30 105 25 98/59 (72) 100 06/21/20 15:00 104 20 94/52 (66) 100 06/21/20 15:00 25 Mechanical Ventilator 100 06/21/20 15:00 99 21 90 06/21/20 14:30 109 24 95/59 (71) 100 06/21/20 14:00 111 24 109/64 (79) 100 06/21/20 14:00 24 Mechanical Ventilator 100 Intake and Output 06/21/20 06/22/20 19:00 07:00 Intake Total 1158 ml 508.3 ml Output Total 1710 ml 480 ml Balance -552 ml 28.3 ml IV Total 438 ml 253.3 ml Tube Feeding 720 ml 240 ml Other 15 ml Output Urine Total 1710 ml 460 ml Stool Total 20 ml # Bowel Movements 1 Current Medications Medications (Trade) Dose Ordered Sig/Zelda Route PRN Reason Start Time Stop Time Status Last Admin Dose Admin Acetaminophen (Tylenol) 650 mg Q4H PRN NG Temp >100.5 05/31/20 21:45 06/30/20 21:44 06/21/20 12:19 Acetaminophen (Tylenol) 650 mg Q6H PRN NG Mild Pain (Pain Scale 1-3) 06/06/20 18:00 07/06/20 17:59 06/13/20 23:10 Chlorhexidine Gluconate (Inna-Hex 2%) 1 applic DAILY@2000 TOPIC 05/30/20 20:00 08/28/20 19:59 06/21/20 20:06 Dextrose (Dextrose 50%) 25 ml Q30M PRN IV Hypoglycemia 06/05/20 10:45 09/03/20 10:44 Dextrose (Dextrose 50%) 50 ml Q30M PRN IV Hypoglycemia 06/05/20 10:45 09/03/20 10:44 Docusate Sodium (Colace) 100 mg Q12HR GT 06/07/20 21:00 07/07/20 20:59 06/20/20 21:18 Enoxaparin Sodium (Lovenox) 40 mg DAILY SUBQ 05/30/20 10:00 08/28/20 09:59 06/22/20 08:14 Furosemide (Lasix) 40 mg DAILY IV 06/22/20 09:00 07/22/20 08:59 06/22/20 08:13 Insulin Aspart (NovoLOG) EVERY 6 HOURS SUBQ 06/07/20 00:00 09/03/20 11:59 06/21/20 12:00 Midazolam HCl 100 mg/Sodium Chloride 200 ml @ 0 mls/hr Q24H PRN IV sedation 06/22/20 01:00 06/23/20 11:29 06/22/20 09:17 Midodrine (Pro-Amatine) 10 mg Q8HR ORAL 06/14/20 14:00 09/12/20 13:59 06/22/20 05:45 Pantoprazole (Protonix) 40 mg Q12HR IVP 06/13/20 21:00 07/03/20 08:59 06/22/20 08:13 Phosphorus (Phospha 250 Neutral) 500 mg THREE TIMES A DAY NG 06/21/20 09:30 07/21/20 09:29 06/21/20 17:29 Polyethylene Glycol (Miralax) 17 gm BEDTIME GT 06/07/20 21:00 07/07/20 20:59 06/17/20 21:02 Laboratory Tests 06/21/20 17:55: POC Whole Blood Glucose 129H 06/21/20 23:11: POC Whole Blood Glucose [Pending] 06/22/20 03:40: White Blood Count 9.0, Red Blood Count 2.67L, Hemoglobin 8.0L, Hematocrit 24.8L, Mean Corpuscular Volume 93, Mean Corpuscular Hemoglobin 30.1, Mean Corpuscular Hemoglobin Concent 32.4, Red Cell Distribution Width 16.5H, Platelet Count 190, Mean Platelet Volume 8.0, Neutrophils (%) (Auto) 73.6, Lymphocytes (%) (Auto) 15.4L, Monocytes (%) (Auto) 1.8, Eosinophils (%) (Auto) 8.7H, Basophils (%) (Auto) 0.4, Sodium Level 143, Potassium Level 3.3L, Chloride Level 102, Carbon Dioxide Level 38H, Anion Gap 3L, Blood Urea Nitrogen 26H, Creatinine 0.5L, Estimat Glomerular Filtration Rate > 60, Glucose Level 98, Uric Acid 2.1L, Calcium Level 8.6, Phosphorus Level 2.6, Magnesium Level 1.8, Total Bilirubin 0.9, Aspartate Amino Transf (AST/SGOT) 30, Alanine Aminotransferase (ALT/SGPT) 21, Alkaline Phosphatase 72, C-Reactive Protein, Quantitative 28.8H, Pro-B-Type Natriuretic Peptide 3167H, Total Protein 6.2L, Albumin 1.7L, Globulin 4.5, Albumin/Globulin Ratio 0.4L 06/22/20 05:20: POC Whole Blood Glucose 109H 06/22/20 07:35: Arterial Blood pH 7.469H, Arterial Blood Partial Pressure CO2 54.6H, Arterial Blood Partial Pressure O2 46.7*L, Arterial Blood HCO3 38.8H, Arterial Blood Oxygen Saturation 82.8*L, Arterial Blood Base Excess 13.4*H, Jeremiah Test Positive 06/22/20 11:37: POC Whole Blood Glucose 130H Height (Feet): 5 Height (Inches): 5.00 Weight (Pounds): 308 General Appearance: no apparent distress EENT: other - Intubated on ventilator Cardiovascular: tachycardia Respiratory/Chest: decreased breath sounds Abdomen: distended Rigo Tyler MD Jun 22, 2020 13:41
--- NOTE | 2020-06-22 14:11 | NUR ---
INSURANCE CLINICALS FAXED TO [facility] T: [phone] EXT [phone] F: [phone]
--- NOTE | 2020-06-22 19:20 | NUR ---
NURSE HAND-OFF REPORT: Latest Vital Signs: Temperature 98.5 , Pulse 93 , B/P 122 /86 , Respiratory Rate 33 , O2 SAT 95 , Mechanical Ventilator, O2 Flow Rate . Vital Sign Comment: lightly sedated RASS -2 EKG Rhythm: Sinus Rhythm Rhythm change?: N Latest Meyers Fall Score: 70 Fall Risk: High Risk Safety Measures: Call light Within Reach, Bed Alarm Zone 1, Side Rails Side Rails x3, Bed position Low and Locked. Fall Precautions: Yellow Socks Airborne isolation endorsed. Report given to Travis Xiong RN
[2020-06-22] MEDS: Dyna-Hex 2% Top Sol 2oz TOPIC SCH (19:31)
--- NOTE | 2020-06-22 19:50 | NUR ---
NURSE NOTES: PATIENT SEDATED, ON ETT TO VENT, AC 15/TV600/FIO2 100%/PEEP 7, O2 SATURATION 95% NOTED, NGT STATUS, HELD FEEDING STATUS, KEPT HOB 30 DEGREES AND ASPIRATION PRECAUTION, ABDOMEN SOFT, NON TENDER, RECTAL TUBE INTACT AND PATENT, F/C INTACT AND PATENT, YELLOW COLOR URINE OUTED, PICC LINE TO RIGHT UPPER ARM, INTACT AND PATENT, ONGOING VERSED 15MG/HR STATUS, KEPT RASS SCORE -2, 2 POINT SOFT RESTRAINTS STATUS, MADE LOWER BED POSITION, ON BED ALARM AND LOCKED, WILL CONTINUE TO MONITOR.
[2020-06-22] MEDS: Miralax 17gm pkt GT SCH (20:39)
--- NOTE | 2020-06-22 21:56 | NUR ---
NURSE NOTES: KEPT RASS SCORE -2, VSS AT THIS TIME, WILL CONTINUE TO MONITOR.
[2020-06-23] VITALS (37 sets, daily range): BP systolic 96–144; BP diastolic 58–92
--- NOTE | 2020-06-23 00:10 | NUR ---
NURSE NOTES: PATIENT SEDATED WITH VERSED 15MG/HR, KEPT RASS SCORE -2, VSS, WILL CONTINUE PLAN OF CARE.
--- NOTE | 2020-06-23 02:34 | NUR ---
NURSE NOTES: VSS, NO ACUTED DISTRESS NOTED AT THIS TIME.
--- NOTE | 2020-06-23 04:30 | NUR ---
NURSE NOTES: MORNING CARE AND ORAL CARE WAS DONE.
[2020-06-23] MEDS: Midodrine 10mg tab ORAL SCH ×3 (05:30→22:06)
[2020-06-23] MEDS: NovoLOG Insulin Flexpen SUBQ SCH ×3 (05:30→18:00)
[2020-06-23] MEDS: Midazolam HCl 50mg/10ml vial 100 MG in NS 180 ML IV PRN ×3 (05:55→20:14)
--- NOTE | 2020-06-23 06:19 | NUR ---
NURSE NOTES: NO ACUTE DISTRESS NOTED AT THIS SHIFT.
[2020-06-23 06:31] LABS: BASOPHILS % (AUTO) 2.2 % (0.0-2.0); EOSINOPHILS % (AUTO) 7.8 % (0.0-3.0); HEMATOCRIT 28.2 % (37.0-47.0); LYMPHOCYTES % (AUTO) 9.6 % (20.0-45.0); MEAN CORPUSCULAR VOLUME 92 FL (80-99); MONOCYTES % (AUTO) 5.4 % (1.0-10.0); NEUTROPHILS % (AUTO) 75.1 % (45.0-75.0); PLATELET COUNT 212 K/UL (150-450); RED BLOOD COUNT 3.09 M/UL (4.20-5.40); RED CELL DISTRIBUTION WIDTH 16.2 % (11.6-14.8); WHITE BLOOD COUNT 7.7 K/UL (4.8-10.8)
--- NOTE | 2020-06-23 06:49 | Hematology/Onc Progress Note ---
Assessment/Plan Assessment/Plan Covering Dr. Del Cid IM # Thrombocytopenia is due to infection/underlying covid19+++ --> ABX ceftriaxone -->zosyn-->off --> on steriods likely cause of initial wbc --> per pulm --> plt 107->156-->192-->205 --> smear reviewed # Anemia due to chronic disease --> hgb goal is >7 --> transfuse prn --> ferritin is >1000 --> hold off on iron --> 10-->9.8->9-->8-->8.2-->9.4-->8.1 # Elevated ddimer due to covid19++ --> duplex legs is negative --> underlying covid rx # Hypoxia -> due to covid19 # Hypoxemia --> rx same as above # Respiratory failure --> on vent --> per pulm # Pneumonia due to COVID-19 virus --> per pulm rx -> sp remdesivir # Diabetes mellitus out of control --> hgb a1c goal <7 # Poor prognosis # Dvt ppx lovenox sq Appreciate consultation and bowen RN Subjective Allergies: Coded Allergies: No Known Allergies (Unverified , 05/28/20) All Systems: reviewed and negative except above Subjective 06/10 nv, on vent, with ogt, on fentanyl and versed, plt stable 06/11 nv, vent adjusted is on ogt, meds reviewed 06/12 nv, vent, meds noted, labs noted, no bleeding, hgb 10.4 06/13 nv, is on vent, meds reviewed, no bleeding, cbc reviewed 06/14 nv, on vent, tachy, labs reviewed, gross hematuria, febrile overnight, abx 06/17 nv, on vent, labs noted, no major changes, feeling better overnight 06/18 nv, meds reviewed, labs noted, no major events, hgb 8.6 06/19 nv, remains intubated, with fluids, labs reviewed, meds noted 06/20 nv, intubated remains on restraints, meds noted as well, as labs 06/21 nv, remains on vent, on restraints, meds reviewed, labs noted 06/22: covering Dr. Del Cid no acute events 06/23 sedated, on vent, nv, intubated, meds reviewed, versed Objective Objective Current Medications Medications (Trade) Dose Ordered Sig/Zelda Route PRN Reason Start Time Stop Time Status Last Admin Dose Admin Acetaminophen (Tylenol) 650 mg Q4H PRN NG Temp >100.5 05/31/20 21:45 06/30/20 21:44 06/21/20 12:19 Acetaminophen (Tylenol) 650 mg Q6H PRN NG Mild Pain (Pain Scale 1-3) 06/06/20 18:00 07/06/20 17:59 06/13/20 23:10 Chlorhexidine Gluconate (Inna-Hex 2%) 1 applic DAILY@2000 TOPIC 05/30/20 20:00 08/28/20 19:59 06/22/20 19:31 Dextrose (Dextrose 50%) 25 ml Q30M PRN IV Hypoglycemia 06/05/20 10:45 09/03/20 10:44 Dextrose (Dextrose 50%) 50 ml Q30M PRN IV Hypoglycemia 06/05/20 10:45 09/03/20 10:44 Docusate Sodium (Colace) 100 mg Q12HR GT 06/07/20 21:00 07/07/20 20:59 06/20/20 21:18 Enoxaparin Sodium (Lovenox) 40 mg DAILY SUBQ 05/30/20 10:00 08/28/20 09:59 06/22/20 08:14 Furosemide (Lasix) 40 mg DAILY IV 06/22/20 09:00 07/22/20 08:59 06/22/20 08:13 Insulin Aspart (NovoLOG) EVERY 6 HOURS SUBQ 06/07/20 00:00 09/03/20 11:59 06/21/20 12:00 Midazolam HCl 100 mg/Sodium Chloride 200 ml @ 0 mls/hr Q24H PRN IV sedation 06/22/20 01:00 06/23/20 11:29 06/23/20 05:55 Midodrine (Pro-Amatine) 10 mg Q8HR ORAL 06/14/20 14:00 09/12/20 13:59 06/22/20 05:45 Pantoprazole (Protonix) 40 mg Q12HR IVP 06/13/20 21:00 07/03/20 08:59 06/22/20 20:39 Polyethylene Glycol (Miralax) 17 gm BEDTIME GT 06/07/20 21:00 07/07/20 20:59 06/17/20 21:02 Last 24 Hour Vital Signs Date Time Temp Pulse Resp B/P (MAP) Pulse Ox O2 Delivery O2 Flow Rate FiO2 06/23/20 06:30 96 32 06/23/20 06:00 96 34 131/87 (102) 92 06/23/20 06:00 34 Mechanical Ventilator 100 06/23/20 05:55 33 Mechanical Ventilator 100 06/23/20 05:18 90 34 100 06/23/20 05:00 95 33 138/86 (103) 90 06/23/20 05:00 33 Mechanical Ventilator 100 06/23/20 04:00 100 06/23/20 04:00 98 06/23/20 04:00 34 Mechanical Ventilator 100 06/23/20 04:00 Mechanical Ventilator Mechanical Ventilator 06/23/20 04:00 97.6 98 34 130/85 (100) 95 06/23/20 03:18 93 34 100 06/23/20 03:00 93 34 143/83 (103) 93 06/23/20 03:00 34 Mechanical Ventilator 100 06/23/20 02:00 95 33 128/84 (99) 95 06/23/20 02:00 33 Mechanical Ventilator 100 06/23/20 01:16 94 29 100 06/23/20 01:00 103 30 127/87 (100) 94 06/23/20 01:00 30 Mechanical Ventilator 100 06/23/20 00:00 Mechanical Ventilator Mechanical Ventilator 06/23/20 00:00 98.2 95 30 125/81 (96) 97 06/23/20 00:00 100 06/23/20 00:00 30 Mechanical Ventilator 100 06/22/20 23:14 94 31 100 06/22/20 23:01 24 Mechanical Ventilator 100 06/22/20 23:00 93 26 109/68 (82) 96 06/22/20 22:00 94 29 118/77 (91) 97 06/22/20 22:00 29 Mechanical Ventilator 100 06/22/20 21:06 99 30 100 06/22/20 21:00 28 Mechanical Ventilator 100 06/22/20 21:00 98 28 127/78 (94) 97 06/22/20 20:30 104 28 128/97 (107) 93 06/22/20 20:00 Mechanical Ventilator Mechanical Ventilator 06/22/20 20:00 30 Mechanical Ventilator 100 06/22/20 20:00 98.1 97 30 131/83 (99) 96 06/22/20 20:00 97 06/22/20 20:00 100 06/22/20 19:15 94 30 100 06/22/20 19:00 33 Mechanical Ventilator 100 06/22/20 19:00 93 33 122/86 (98) 95 06/22/20 18:00 93 35 126/86 (99) 95 06/22/20 18:00 35 Mechanical Ventilator 100 06/22/20 17:45 93 36 122/80 (94) 93 06/22/20 17:30 94 36 129/80 (96) 94 06/22/20 17:15 94 33 130/82 (98) 95 06/22/20 17:00 33 Mechanical Ventilator 100 06/22/20 17:00 94 33 132/83 (99) 96 06/22/20 16:45 30 Mechanical Ventilator 100 06/22/20 16:45 93 30 118/83 (95) 96 06/22/20 16:41 102 38 100 06/22/20 16:20 30 Mechanical Ventilator 100 06/22/20 16:00 98.5 90 22 120/79 (93) 96 06/22/20 16:00 Mechanical Ventilator Mechanical Ventilator 06/22/20 16:00 22 Mechanical Ventilator 100 06/22/20 16:00 100 06/22/20 15:39 95 06/22/20 15:26 99 38 100 06/22/20 15:00 101 33 125/78 (94) 93 06/22/20 15:00 33 Mechanical Ventilator 100 06/22/20 14:00 98 24 103/69 (80) 96 06/22/20 14:00 24 Mechanical Ventilator 100 06/22/20 13:19 96 30 100 06/22/20 13:00 98.0 88 28 104/68 (80) 93 06/22/20 13:00 28 Mechanical Ventilator 100 06/22/20 12:00 90 31 135/91 (106) 77 06/22/20 12:00 31 Mechanical Ventilator 100 06/22/20 12:00 100 06/22/20 12:00 Mechanical Ventilator Mechanical Ventilator 06/22/20 11:34 86 06/22/20 11:19 91 32 100 06/22/20 11:00 29 Mechanical Ventilator 100 06/22/20 11:00 92 29 106/72 (83) 94 06/22/20 10:45 93 29 108/71 (83) 95 06/22/20 10:30 93 29 105/72 (83) 94 06/22/20 10:15 91 28 110/70 (83) 94 06/22/20 10:00 92 33 119/77 (91) 91 06/22/20 10:00 28 Mechanical Ventilator 100 06/22/20 09:45 28 Mechanical Ventilator 100 06/22/20 09:45 87 28 111/84 (93) 91 06/22/20 09:34 96 31 100 06/22/20 09:30 93 33 128/86 (100) 83 06/22/20 09:17 35 Mechanical Ventilator 100 06/22/20 09:00 33 Mechanical Ventilator 100 06/22/20 09:00 95 35 131/87 (102) 78 06/22/20 08:45 90 34 136/82 (100) 80 06/22/20 08:30 98 35 129/81 (97) 79 06/22/20 08:15 94 34 125/85 (98) 80 06/22/20 08:00 Mechanical Ventilator Mechanical Ventilator 06/22/20 08:00 100 06/22/20 08:00 33 Mechanical Ventilator 100 06/22/20 08:00 92 33 133/78 (96) 87 06/22/20 07:45 29 Mechanical Ventilator 100 06/22/20 07:45 97.8 90 29 125/81 (96) 92 06/22/20 07:37 94 06/22/20 07:28 92 29 100 06/22/20 07:00 86 24 114/71 (85) 89 06/22/20 07:00 30 Mechanical Ventilator 100 06/22/20 06:30 90 27 06/22/20 06:00 90 23 101/69 (80) 88 06/22/20 06:00 26 Mechanical Ventilator 100 06/22/20 05:00 96 26 105/67 (80) 90 06/22/20 05:00 25 Mechanical Ventilator 100 06/22/20 04:00 100 06/22/20 04:00 102 06/22/20 04:00 98.2 99 31 121/80 (94) 84 06/22/20 04:00 Mechanical Ventilator Mechanical Ventilator 06/22/20 04:00 31 Mechanical Ventilator 100 06/22/20 03:30 99 31 100 06/22/20 03:00 94 25 109/67 (81) 91 06/22/20 03:00 25 Mechanical Ventilator 100 06/22/20 02:00 102 27 96/64 (75) 97 06/22/20 02:00 25 Mechanical Ventilator 100 06/22/20 01:23 24 Mechanical Ventilator 100 06/22/20 01:15 34 Mechanical Ventilator 100 06/22/20 01:00 100 34 133/78 (96) 84 06/22/20 01:00 35 Mechanical Ventilator 100 06/22/20 00:00 100 06/22/20 00:00 100 06/22/20 00:00 35 Mechanical Ventilator 100 06/22/20 00:00 99.4 106 33 123/78 (93) 82 06/22/20 00:00 Mechanical Ventilator Mechanical Ventilator 06/21/20 23:30 100 26 100 06/21/20 23:00 24 Mechanical Ventilator 80 06/21/20 23:00 95 23 100/62 (75) 98 06/21/20 22:00 24 Mechanical Ventilator 80 06/21/20 22:00 96 22 100/54 (69) 98 06/21/20 21:00 25 Mechanical Ventilator 80 06/21/20 21:00 102 25 114/68 (83) 96 06/21/20 20:21 28 Mechanical Ventilator 80 06/21/20 20:00 80 06/21/20 20:00 99.0 97 22 115/66 (82) 97 06/21/20 20:00 102 06/21/20 20:00 25 Mechanical Ventilator 90 06/21/20 20:00 Mechanical Ventilator Mechanical Ventilator 06/21/20 19:09 103 25 90 06/21/20 19:00 104 25 103/68 (80) 100 06/21/20 19:00 25 Mechanical Ventilator 90 06/21/20 18:30 96 19 89/62 (71) 100 06/21/20 18:00 96 18 94/50 (65) 100 06/21/20 18:00 19 Mechanical Ventilator 90 06/21/20 17:30 96 18 94/57 (69) 100 06/21/20 17:00 97 26 100/42 (61) 99 06/21/20 17:00 25 Mechanical Ventilator 90 06/21/20 16:30 103 19 111/69 (83) 97 06/21/20 16:00 100 06/21/20 16:00 98.9 107 25 107/65 (79) 99 06/21/20 16:00 Mechanical Ventilator Mechanical Ventilator 06/21/20 16:00 19 Mechanical Ventilator 90 06/21/20 16:00 105 06/21/20 15:30 105 25 98/59 (72) 100 06/21/20 15:00 104 20 94/52 (66) 100 06/21/20 15:00 25 Mechanical Ventilator 100 06/21/20 15:00 99 21 90 06/21/20 14:30 109 24 95/59 (71) 100 06/21/20 14:00 111 24 109/64 (79) 100 06/21/20 14:00 24 Mechanical Ventilator 100 06/21/20 13:30 114 27 117/68 (84) 100 06/21/20 13:00 28 100 06/21/20 13:00 111 30 138/99 (112) 94 06/21/20 12:49 99.9 06/21/20 12:48 110 30 100 06/21/20 12:30 113 31 146/78 (100) 97 06/21/20 12:00 123 06/21/20 12:00 100.6 111 30 137/89 (105) 100 06/21/20 12:00 100 06/21/20 12:00 30 80 06/21/20 12:00 Mechanical Ventilator Mechanical Ventilator 06/21/20 11:30 113 29 129/77 (94) 100 06/21/20 11:20 103 26 80 06/21/20 11:00 101 33 142/84 (103) 91 06/21/20 11:00 30 Mechanical Ventilator 100 06/21/20 10:30 114 31 123/74 (90) 99 06/21/20 10:00 113 29 108/66 (80) 100 06/21/20 10:00 24 Mechanical Ventilator 100 06/21/20 09:30 120 24 97/52 (67) 100 06/21/20 09:00 122 24 80 06/21/20 09:00 24 Mechanical Ventilator 80 06/21/20 09:00 124 24 114/52 (72) 100 06/21/20 08:30 128 35 114/58 (76) 99 06/21/20 08:00 80 06/21/20 08:00 134 06/21/20 08:00 30 Mechanical Ventilator 80 06/21/20 08:00 102.4 131 34 119/59 (79) 100 06/21/20 08:00 Mechanical Ventilator Mechanical Ventilator 06/21/20 07:30 136 42 138/67 (90) 100 06/21/20 07:00 39 Mechanical Ventilator 80 06/21/20 07:00 134 41 133/62 (85) 96 Intake and Output 06/22/20 06/23/20 19:00 07:00 Intake Total 432.60 ml 322.5 ml Output Total 755 ml 3200 ml Balance -322.40 ml -2877.5 ml IV Total 432.60 ml 322.5 ml Output Urine Total 735 ml 3170 ml Stool Total 20 ml 30 ml # Bowel Movements 3 Labs Test 06/20/20 13:12 06/20/20 17:35 06/21/20 00:33 06/21/20 03:20 POC Whole Blood Glucose 139 MG/DL (74-106) White Blood Count 8.5 K/UL (4.8-10.8) Red Blood Count 2.64 M/UL (4.20-5.40) Hemoglobin 8.1 G/DL (12.0-16.0) Hematocrit 24.6 % (37.0-47.0) Mean Corpuscular Volume 93 FL (80-99) Mean Corpuscular Hemoglobin 30.8 PG (27.0-31.0) Mean Corpuscular Hemoglobin Concent 33.0 G/DL (32.0-36.0) Red Cell Distribution Width 17.2 % (11.6-14.8) Platelet Count 192 K/UL (150-450) Mean Platelet Volume 7.4 FL (6.5-10.1) Neutrophils (%) (Auto) 80.7 % (45.0-75.0) Lymphocytes (%) (Auto) 13.8 % (20.0-45.0) Monocytes (%) (Auto) 2.8 % (1.0-10.0) Eosinophils (%) (Auto) 2.2 % (0.0-3.0) Basophils (%) (Auto) 0.4 % (0.0-2.0) Sodium Level 141 MMOL/L (136-145) Potassium Level 4.6 MMOL/L (3.5-5.1) Chloride Level 103 MMOL/L (98-107) Carbon Dioxide Level 35 MMOL/L (21-32) Anion Gap 3 mmol/L (5-15) Blood Urea Nitrogen 22 mg/dL (7-18) Creatinine 0.6 MG/DL (0.55-1.30) Estimat Glomerular Filtration Rate > 60 mL/min (>60) Glucose Level 88 MG/DL (74-106) Calcium Level 9.0 MG/DL (8.5-10.1) Phosphorus Level 1.6 MG/DL (2.5-4.9) Magnesium Level 2.3 MG/DL (1.8-2.4) Total Bilirubin 0.8 MG/DL (0.2-1.0) Aspartate Amino Transf (AST/SGOT) 36 U/L (15-37) Alanine Aminotransferase (ALT/SGPT) 21 U/L (12-78) Alkaline Phosphatase 61 U/L (46-116) C-Reactive Protein, Quantitative 43.8 mg/dL (0.00-0.90) Total Protein 6.0 G/DL (6.4-8.2) Albumin 1.8 G/DL (3.4-5.0) Globulin 4.2 g/dL Albumin/Globulin Ratio 0.4 (1.0-2.7) Test 06/21/20 05:48 06/21/20 12:28 06/21/20 17:55 06/21/20 23:11 POC Whole Blood Glucose 108 MG/DL (74-106) 129 MG/DL (74-106) Test 06/22/20 03:40 06/22/20 05:20 06/22/20 07:35 06/22/20 11:37 White Blood Count 9.0 K/UL (4.8-10.8) Red Blood Count 2.67 M/UL (4.20-5.40) Hemoglobin 8.0 G/DL (12.0-16.0) Hematocrit 24.8 % (37.0-47.0) Mean Corpuscular Volume 93 FL (80-99) Mean Corpuscular Hemoglobin 30.1 PG (27.0-31.0) Mean Corpuscular Hemoglobin Concent 32.4 G/DL (32.0-36.0) Red Cell Distribution Width 16.5 % (11.6-14.8) Platelet Count 190 K/UL (150-450) Mean Platelet Volume 8.0 FL (6.5-10.1) Neutrophils (%) (Auto) 73.6 % (45.0-75.0) Lymphocytes (%) (Auto) 15.4 % (20.0-45.0) Monocytes (%) (Auto) 1.8 % (1.0-10.0) Eosinophils (%) (Auto) 8.7 % (0.0-3.0) Basophils (%) (Auto) 0.4 % (0.0-2.0) Sodium Level 143 MMOL/L (136-145) Potassium Level 3.3 MMOL/L (3.5-5.1) Chloride Level 102 MMOL/L (98-107) Carbon Dioxide Level 38 MMOL/L (21-32) Anion Gap 3 mmol/L (5-15) Blood Urea Nitrogen 26 mg/dL (7-18) Creatinine 0.5 MG/DL (0.55-1.30) Estimat Glomerular Filtration Rate > 60 mL/min (>60) Glucose Level 98 MG/DL (74-106) Uric Acid 2.1 MG/DL (2.6-7.2) Calcium Level 8.6 MG/DL (8.5-10.1) Phosphorus Level 2.6 MG/DL (2.5-4.9) Magnesium Level 1.8 MG/DL (1.8-2.4) Total Bilirubin 0.9 MG/DL (0.2-1.0) Aspartate Amino Transf (AST/SGOT) 30 U/L (15-37) Alanine Aminotransferase (ALT/SGPT) 21 U/L (12-78) Alkaline Phosphatase 72 U/L (46-116) C-Reactive Protein, Quantitative 28.8 mg/dL (0.00-0.90) Pro-B-Type Natriuretic Peptide 3167 pg/mL (0-125) Total Protein 6.2 G/DL (6.4-8.2) Albumin 1.7 G/DL (3.4-5.0) Globulin 4.5 g/dL Albumin/Globulin Ratio 0.4 (1.0-2.7) POC Whole Blood Glucose 109 MG/DL (74-106) 130 MG/DL (74-106) Arterial Blood pH 7.469 (7.350-7.450) Arterial Blood Partial Pressure CO2 54.6 mmHg (35.0-45.0) Arterial Blood Partial Pressure O2 46.7 mmHg (75.0-100.0) Arterial Blood HCO3 38.8 mmol/L (22.0-26.0) Arterial Blood Oxygen Saturation 82.8 % (95-100) Arterial Blood Base Excess 13.4 (-2-2) Jeremiah Test Positive Test 06/23/20 05:31 Height (Feet): 5 Height (Inches): 5.00 Weight (Pounds): 308 Objective GeNL: nv Pulm: vent++ CV: rrr Abd: soft, nt, nd Ext: no cce Myron Condon MD Jun 23, 2020 06:49
[2020-06-23 07:21] LABS: ALANINE AMINOTRANSFERASE 18 U/L (12-78); ALBUMIN 1.9 G/DL (3.4-5.0); ALBUMIN/GLOBULIN RATIO 0.4 (1.0-2.7); ALKALINE PHOSPHATASE 84 U/L (46-116); ANION GAP 7 mmol/L (5-15); ASPARTATE AMINO TRANSFERASE 32 U/L (15-37); BILIRUBIN,TOTAL 1.2 MG/DL (0.2-1.0); BLOOD UREA NITROGEN 23 mg/dL (7-18); CALCIUM 8.8 MG/DL (8.5-10.1); CARBON DIOXIDE 34 MMOL/L (21-32); CHLORIDE 101 MMOL/L (98-107); CREATININE 0.5 MG/DL (0.55-1.30); PHOSPHORUS 3.8 MG/DL (2.5-4.9); POTASSIUM 3.7 MMOL/L (3.5-5.1); SODIUM 142 MMOL/L (136-145)
[2020-06-23 07:25] LABS: BILIRUBIN,DIRECT 0.2 MG/DL (0.0-0.3)
--- NOTE | 2020-06-23 07:28 | NUR ---
NURSE HAND-OFF REPORT: Latest Vital Signs: Temperature 97.6 , Pulse 96 , B/P 131 /87 , Respiratory Rate 34 , O2 SAT 92 , Mechanical Ventilator, O2 Flow Rate . Vital Sign Comment: EKG Rhythm: Sinus Rhythm Rhythm change?: N Notified?: Babs EDWARDS MD Response: Latest Meyers Fall Score: 70 Fall Risk: High Risk Safety Measures: Call light Within Reach, Bed Alarm Zone 1, Side Rails Side Rails x3, Bed position Low and Locked. Fall Precautions: Yellow Socks Door Sign Patient Fall Education Report given to RAKEL GAYTAN.
--- NOTE | 2020-06-23 07:30 | NUR ---
RECEIVED REPORT FR RAKEL SCHWARZ Latest Vital Signs: Temperature 97.6 , Pulse 96 , B/P 131 /87 , Respiratory Rate 34 , O2 SAT 92 , Mechanical Ventilator, O2 Flow Rate . Vital Sign Comment: EKG Rhythm: Sinus Rhythm Rhythm change?: N Notified?: Babs EDWARDS MD Response: Latest Meyers Fall Score: 70 Fall Risk: High Risk Safety Measures: Call light Within Reach, Bed Alarm Zone 1, Side Rails Side Rails x3, Bed position Low and Locked. Fall Precautions: Yellow Socks Door Sign Patient Fall Education
--- NOTE | 2020-06-23 08:33 | NUR ---
RD ASSESSMENT & RECOMMENDATIONS SEE CARE ACTIVITY FOR COMPLETE ASSESSMENT DAILY ESTIMATED NEEDS: Needs based on Critical care, obesity 11-14kcal/kg actual body wt (140kg) kcals/kg 8801-1030 total kcals 1.5-2.0g prot/kg IBW (64.5kg) g protein/kg 96-129 g total protein 25-30ml/kg abw (83kg) mL/kg 9496-2582 total fluid mLs NUTRITION DIAGNOSIS: Swallowing difficulty R/T respiratory failure as evidenced by pt orally intubated and sedated, on OGT feeds. (CURRENT TF: Vital 1.2 goal of 60ml/hr, on hold- unable to have HOB>30 degrees) ENTERAL NUTRITION RECOMMENDATIONS: Vital AF 1.2 @ 60ml/hr x 24 hrs to provide 1440ml, 1728kcal, 108g prot, 1168ml free water * As able, restart TF @30ml/hr, advance as tolerated to goal. * TF @ goal meeds 100% est kcal/prot needs * HOB over 30 degrees/ water flush per MD TF may be lowered to 55ml/hr for improved BG control while maintaining Kcal and pro needs. ADDITIONAL RECOMMENDATIONS: * Calibrated bedscale wt * Monitor Propofol rate, need for TF adjustment-> now off * Monitor BGs closely : now improved, on NISS only * Monitor lytes- K elevated, monitor need for TF change * Rec bowel regimen- now w/ rectal tube * F/up w/ bed change and ability to restart TF .
[2020-06-23] MEDS: Pantoprazole Inj IVP SCH ×2 (08:49→20:13)
[2020-06-23] MEDS: Docusate 100mg/10ml Liq GT SCH ×2 (08:49→21:00)
[2020-06-23] MEDS: Enoxaparin 40mg Inj SUBQ SCH (08:52)
--- NOTE | 2020-06-23 09:38 | Pulmonology Progress Note ---
Subjective ROS Limited/Unobtainable: Yes Interval Events: Remains intubated Constitutional: Reports: fever, other - T=103 HEENT: Repors: no symptoms Respiratory: Reports: no symptoms Cardiovascular: Reports: no symptoms Gastrointestinal/Abdominal: Reports: no symptoms Genitourinary: Reports: no symptoms Allergies: Coded Allergies: No Known Allergies (Unverified , 05/28/20) All Systems: reviewed and negative except above Objective Last 24 Hour Vital Signs Date Time Temp Pulse Resp B/P (MAP) Pulse Ox O2 Delivery O2 Flow Rate FiO2 06/23/20 09:00 95 35 137/87 (104) 88 06/23/20 08:00 96 34 89 06/23/20 08:00 100 06/23/20 08:00 98 06/23/20 08:00 97.6 98 34 130/85 (100) 95 06/23/20 08:00 Mechanical Ventilator Mechanical Ventilator 06/23/20 07:30 95 31 133/85 (101) 93 06/23/20 07:21 96 33 100 06/23/20 07:00 95 35 137/87 (104) 88 06/23/20 07:00 95 35 137/87 (104) 88 06/23/20 07:00 35 Mechanical Ventilator 100 06/23/20 06:30 96 32 06/23/20 06:00 96 34 131/87 (102) 92 06/23/20 06:00 34 Mechanical Ventilator 100 06/23/20 05:55 33 Mechanical Ventilator 100 06/23/20 05:18 90 34 100 06/23/20 05:00 95 33 138/86 (103) 90 06/23/20 05:00 33 Mechanical Ventilator 100 06/23/20 04:00 100 06/23/20 04:00 98 06/23/20 04:00 34 Mechanical Ventilator 100 06/23/20 04:00 Mechanical Ventilator Mechanical Ventilator 06/23/20 04:00 97.6 98 34 130/85 (100) 95 06/23/20 03:18 93 34 100 06/23/20 03:00 93 34 143/83 (103) 93 06/23/20 03:00 34 Mechanical Ventilator 100 06/23/20 02:00 95 33 128/84 (99) 95 06/23/20 02:00 33 Mechanical Ventilator 100 06/23/20 01:16 94 29 100 06/23/20 01:00 103 30 127/87 (100) 94 06/23/20 01:00 30 Mechanical Ventilator 100 06/23/20 00:00 Mechanical Ventilator Mechanical Ventilator 06/23/20 00:00 98.2 95 30 125/81 (96) 97 06/23/20 00:00 100 06/23/20 00:00 30 Mechanical Ventilator 100 06/22/20 23:14 94 31 100 06/22/20 23:01 24 Mechanical Ventilator 100 06/22/20 23:00 93 26 109/68 (82) 96 06/22/20 22:00 94 29 118/77 (91) 97 06/22/20 22:00 29 Mechanical Ventilator 100 06/22/20 21:06 99 30 100 06/22/20 21:00 28 Mechanical Ventilator 100 06/22/20 21:00 98 28 127/78 (94) 97 06/22/20 20:30 104 28 128/97 (107) 93 06/22/20 20:00 Mechanical Ventilator Mechanical Ventilator 06/22/20 20:00 30 Mechanical Ventilator 100 06/22/20 20:00 98.1 97 30 131/83 (99) 96 06/22/20 20:00 97 06/22/20 20:00 100 06/22/20 19:15 94 30 100 06/22/20 19:00 33 Mechanical Ventilator 100 06/22/20 19:00 93 33 122/86 (98) 95 06/22/20 18:00 93 35 126/86 (99) 95 06/22/20 18:00 35 Mechanical Ventilator 100 06/22/20 17:45 93 36 122/80 (94) 93 06/22/20 17:30 94 36 129/80 (96) 94 06/22/20 17:15 94 33 130/82 (98) 95 06/22/20 17:00 33 Mechanical Ventilator 100 06/22/20 17:00 94 33 132/83 (99) 96 06/22/20 16:45 30 Mechanical Ventilator 100 06/22/20 16:45 93 30 118/83 (95) 96 06/22/20 16:41 102 38 100 06/22/20 16:20 30 Mechanical Ventilator 100 06/22/20 16:00 98.5 90 22 120/79 (93) 96 06/22/20 16:00 Mechanical Ventilator Mechanical Ventilator 06/22/20 16:00 22 Mechanical Ventilator 100 06/22/20 16:00 100 06/22/20 15:39 95 06/22/20 15:26 99 38 100 06/22/20 15:00 101 33 125/78 (94) 93 06/22/20 15:00 33 Mechanical Ventilator 100 06/22/20 14:00 98 24 103/69 (80) 96 06/22/20 14:00 24 Mechanical Ventilator 100 06/22/20 13:19 96 30 100 06/22/20 13:00 98.0 88 28 104/68 (80) 93 06/22/20 13:00 28 Mechanical Ventilator 100 06/22/20 12:00 90 31 135/91 (106) 77 06/22/20 12:00 31 Mechanical Ventilator 100 06/22/20 12:00 100 06/22/20 12:00 Mechanical Ventilator Mechanical Ventilator 06/22/20 11:34 86 06/22/20 11:19 91 32 100 06/22/20 11:00 29 Mechanical Ventilator 100 06/22/20 11:00 92 29 106/72 (83) 94 06/22/20 10:45 93 29 108/71 (83) 95 06/22/20 10:30 93 29 105/72 (83) 94 06/22/20 10:15 91 28 110/70 (83) 94 06/22/20 10:00 92 33 119/77 (91) 91 06/22/20 10:00 28 Mechanical Ventilator 100 06/22/20 09:45 28 Mechanical Ventilator 100 06/22/20 09:45 87 28 111/84 (93) 91 Intake and Output 06/22/20 06/23/20 19:00 07:00 Intake Total 432.60 ml 352.5 ml Output Total 755 ml 3280 ml Balance -322.40 ml -2927.5 ml IV Total 432.60 ml 352.5 ml Output Urine Total 735 ml 3220 ml Stool Total 20 ml 60 ml # Bowel Movements 3 General Appearance: no acute distress HEENT: normocephalic Respiratory: chest wall non-tender Cardiovascular: normal peripheral pulses Abdomen: normal bowel sounds Laboratory Tests 06/22/20 11:37: POC Whole Blood Glucose 130H 06/23/20 05:31: White Blood Count 7.7, Red Blood Count 3.09L, Hemoglobin 9.0L, Hematocrit 28.2L, Mean Corpuscular Volume 92, Mean Corpuscular Hemoglobin 29.1, Mean Corpuscular Hemoglobin Concent 31.8L, Red Cell Distribution Width 16.2H, Platelet Count 212, Mean Platelet Volume 7.4, Neutrophils (%) (Auto) 75.1H, Lymphocytes (%) (Auto) 9.6L, Monocytes (%) (Auto) 5.4, Eosinophils (%) (Auto) 7.8H, Basophils (%) (Auto) 2.2H, Sodium Level 142, Potassium Level 3.7, Chloride Level 101, Carbon Dioxide Level 34H, Anion Gap 7, Blood Urea Nitrogen 23H, Creatinine 0.5L, Estimat Glomerular Filtration Rate > 60, Glucose Level 102, Calcium Level 8.8, Phosphorus Level 3.8, Magnesium Level 1.8, Total Bilirubin 1.2H, Direct Bilirubin 0.2, Aspartate Amino Transf (AST/SGOT) 32, Alanine Aminotransferase (ALT/SGPT) 18, Alkaline Phosphatase 84, C-Reactive Protein, Quantitative 21.3H, Pro-B-Type Natriuretic Peptide 1376H, Total Protein 6.7, Albumin 1.9L, Globulin 4.8, Albumin/Globulin Ratio 0.4L 06/23/20 08:13: Arterial Blood pH 7.444, Arterial Blood Partial Pressure CO2 51.2H, Arterial Blood Partial Pressure O2 49.8*L, Arterial Blood HCO3 34.3H, Arterial Blood Oxygen Saturation 82.3*L, Arterial Blood Base Excess 9.0H, Jeremiah Test Positive Current Medications Medications (Trade) Dose Ordered Sig/Zelda Route PRN Reason Start Time Stop Time Status Last Admin Dose Admin Acetaminophen (Tylenol) 650 mg Q4H PRN NG Temp >100.5 05/31/20 21:45 06/30/20 21:44 06/21/20 12:19 Acetaminophen (Tylenol) 650 mg Q6H PRN NG Mild Pain (Pain Scale 1-3) 06/06/20 18:00 07/06/20 17:59 06/13/20 23:10 Chlorhexidine Gluconate (Inna-Hex 2%) 1 applic DAILY@2000 TOPIC 05/30/20 20:00 08/28/20 19:59 06/22/20 19:31 Dextrose (Dextrose 50%) 25 ml Q30M PRN IV Hypoglycemia 06/05/20 10:45 09/03/20 10:44 Dextrose (Dextrose 50%) 50 ml Q30M PRN IV Hypoglycemia 06/05/20 10:45 09/03/20 10:44 Docusate Sodium (Colace) 100 mg Q12HR GT 06/07/20 21:00 07/07/20 20:59 06/23/20 08:49 Enoxaparin Sodium (Lovenox) 40 mg DAILY SUBQ 05/30/20 10:00 08/28/20 09:59 06/23/20 08:52 Furosemide (Lasix) 40 mg DAILY IV 06/22/20 09:00 07/22/20 08:59 06/23/20 08:49 Insulin Aspart (NovoLOG) EVERY 6 HOURS SUBQ 06/07/20 00:00 09/03/20 11:59 06/21/20 12:00 Midazolam HCl 100 mg/Sodium Chloride 200 ml @ 0 mls/hr Q24H PRN IV sedation 06/22/20 01:00 06/23/20 11:29 06/23/20 05:55 Midodrine (Pro-Amatine) 10 mg Q8HR ORAL 06/14/20 14:00 09/12/20 13:59 06/22/20 05:45 Pantoprazole (Protonix) 40 mg Q12HR IVP 06/13/20 21:00 07/03/20 08:59 06/23/20 08:49 Polyethylene Glycol (Miralax) 17 gm BEDTIME GT 06/07/20 21:00 07/07/20 20:59 06/17/20 21:02 Assessment/Plan Assessment/Plan 1. COVID-19 pneumonia -Intubated 05/28/20 - We will continue broad-spectrum antibiotics. -s/p solumedrol, Rocephin -Continue PEEP 7 - Peak airway pressures high; approx 48 now - FiO2 100% -> 90 ->80->60 ->40 ->80 ->100%; -will continue OGT feeding -Continue sedation; Need to keep patient completely sedated. - ABG slight improvement 2. Hyponatremia -Per primary MD 3. Elevated inflammatory markers - has high D dimer; Lovenox on hold due to hematuria 4. Decrease PEEP Continue weaning efforts May need trach Discussed with surgery Currently FiO2 too high for safe tracheostomy Long discussion with family who wish to wean her off the oxygen eventually instead of trach. Trach if "necessary" per family. The care for this patient was discussed with my supervising physician Time spent for this case was approximately 31 minutes Vamshi Garcia Jun 23, 2020 09:38
--- NOTE | 2020-06-23 11:12 | General Progress Note ---
Subjective ROS Limited/Unobtainable: Yes Allergies: Coded Allergies: No Known Allergies (Unverified , 05/28/20) Subjective events noted interval notes reviewed glucose values are stable intubated in ICU Item Value Date Time Bedside Blood Glucose 104 mg/dl 06/23/20 0530 Bedside Blood Glucose 104 mg/dl 06/22/20 2332 Bedside Blood Glucose 103 mg/dl 06/22/20 1751 Bedside Blood Glucose 130 mg/dl H 06/22/20 1145 Bedside Blood Glucose 109 mg/dl 06/22/20 0600 Objective Last 24 Hour Vital Signs Date Time Temp Pulse Resp B/P (MAP) Pulse Ox O2 Delivery O2 Flow Rate FiO2 06/23/20 10:00 95 35 137/87 (104) 88 06/23/20 10:00 101 31 93 06/23/20 09:30 98 31 122/81 (95) 94 06/23/20 09:00 98 35 135/79 (97) 88 06/23/20 09:00 95 35 137/87 (104) 88 06/23/20 08:30 93 33 141/85 (103) 85 06/23/20 08:00 96 34 89 06/23/20 08:00 100 06/23/20 08:00 98 06/23/20 08:00 97.6 98 34 130/85 (100) 95 06/23/20 08:00 96 34 141/92 (108) 89 06/23/20 08:00 Mechanical Ventilator Mechanical Ventilator 06/23/20 07:30 95 31 133/85 (101) 93 06/23/20 07:21 96 33 100 06/23/20 07:00 95 35 137/87 (104) 88 06/23/20 07:00 95 35 137/87 (104) 88 06/23/20 07:00 35 Mechanical Ventilator 100 06/23/20 06:30 96 32 06/23/20 06:00 96 34 131/87 (102) 92 06/23/20 06:00 34 Mechanical Ventilator 100 06/23/20 05:55 33 Mechanical Ventilator 100 06/23/20 05:18 90 34 100 06/23/20 05:00 95 33 138/86 (103) 90 06/23/20 05:00 33 Mechanical Ventilator 100 06/23/20 04:00 100 06/23/20 04:00 98 06/23/20 04:00 34 Mechanical Ventilator 100 06/23/20 04:00 Mechanical Ventilator Mechanical Ventilator 06/23/20 04:00 97.6 98 34 130/85 (100) 95 06/23/20 03:18 93 34 100 06/23/20 03:00 93 34 143/83 (103) 93 06/23/20 03:00 34 Mechanical Ventilator 100 06/23/20 02:00 95 33 128/84 (99) 95 06/23/20 02:00 33 Mechanical Ventilator 100 06/23/20 01:16 94 29 100 06/23/20 01:00 103 30 127/87 (100) 94 06/23/20 01:00 30 Mechanical Ventilator 100 06/23/20 00:00 Mechanical Ventilator Mechanical Ventilator 06/23/20 00:00 98.2 95 30 125/81 (96) 97 06/23/20 00:00 100 06/23/20 00:00 30 Mechanical Ventilator 100 06/22/20 23:14 94 31 100 06/22/20 23:01 24 Mechanical Ventilator 100 06/22/20 23:00 93 26 109/68 (82) 96 06/22/20 22:00 94 29 118/77 (91) 97 06/22/20 22:00 29 Mechanical Ventilator 100 06/22/20 21:06 99 30 100 06/22/20 21:00 28 Mechanical Ventilator 100 06/22/20 21:00 98 28 127/78 (94) 97 06/22/20 20:30 104 28 128/97 (107) 93 06/22/20 20:00 Mechanical Ventilator Mechanical Ventilator 06/22/20 20:00 30 Mechanical Ventilator 100 06/22/20 20:00 98.1 97 30 131/83 (99) 96 06/22/20 20:00 97 06/22/20 20:00 100 06/22/20 19:15 94 30 100 06/22/20 19:00 33 Mechanical Ventilator 100 06/22/20 19:00 93 33 122/86 (98) 95 06/22/20 18:00 93 35 126/86 (99) 95 06/22/20 18:00 35 Mechanical Ventilator 100 06/22/20 17:45 93 36 122/80 (94) 93 06/22/20 17:30 94 36 129/80 (96) 94 06/22/20 17:15 94 33 130/82 (98) 95 06/22/20 17:00 33 Mechanical Ventilator 100 06/22/20 17:00 94 33 132/83 (99) 96 06/22/20 16:45 30 Mechanical Ventilator 100 06/22/20 16:45 93 30 118/83 (95) 96 06/22/20 16:41 102 38 100 06/22/20 16:20 30 Mechanical Ventilator 100 06/22/20 16:00 98.5 90 22 120/79 (93) 96 06/22/20 16:00 Mechanical Ventilator Mechanical Ventilator 06/22/20 16:00 22 Mechanical Ventilator 100 06/22/20 16:00 100 06/22/20 15:39 95 06/22/20 15:26 99 38 100 06/22/20 15:00 101 33 125/78 (94) 93 06/22/20 15:00 33 Mechanical Ventilator 100 06/22/20 14:00 98 24 103/69 (80) 96 06/22/20 14:00 24 Mechanical Ventilator 100 06/22/20 13:19 96 30 100 06/22/20 13:00 98.0 88 28 104/68 (80) 93 06/22/20 13:00 28 Mechanical Ventilator 100 06/22/20 12:00 90 31 135/91 (106) 77 06/22/20 12:00 31 Mechanical Ventilator 100 06/22/20 12:00 100 06/22/20 12:00 Mechanical Ventilator Mechanical Ventilator 06/22/20 11:34 86 06/22/20 11:19 91 32 100 Intake and Output 06/22/20 06/23/20 19:00 07:00 Intake Total 432.60 ml 352.5 ml Output Total 755 ml 3280 ml Balance -322.40 ml -2927.5 ml IV Total 432.60 ml 352.5 ml Output Urine Total 735 ml 3220 ml Stool Total 20 ml 60 ml # Bowel Movements 3 Laboratory Tests 06/22/20 11:37: POC Whole Blood Glucose 130H 06/23/20 05:31: White Blood Count 7.7, Red Blood Count 3.09L, Hemoglobin 9.0L, Hematocrit 28.2L, Mean Corpuscular Volume 92, Mean Corpuscular Hemoglobin 29.1, Mean Corpuscular Hemoglobin Concent 31.8L, Red Cell Distribution Width 16.2H, Platelet Count 212, Mean Platelet Volume 7.4, Neutrophils (%) (Auto) 75.1H, Lymphocytes (%) (Auto) 9.6L, Monocytes (%) (Auto) 5.4, Eosinophils (%) (Auto) 7.8H, Basophils (%) (Auto) 2.2H, Sodium Level 142, Potassium Level 3.7, Chloride Level 101, Carbon Dioxide Level 34H, Anion Gap 7, Blood Urea Nitrogen 23H, Creatinine 0.5L, Estimat Glomerular Filtration Rate > 60, Glucose Level 102, Calcium Level 8.8, Phosphorus Level 3.8, Magnesium Level 1.8, Total Bilirubin 1.2H, Direct Bilirubin 0.2, Aspartate Amino Transf (AST/SGOT) 32, Alanine Aminotransferase (ALT/SGPT) 18, Alkaline Phosphatase 84, C-Reactive Protein, Quantitative 21.3H, Pro-B-Type Natriuretic Peptide 1376H, Total Protein 6.7, Albumin 1.9L, Globulin 4.8, Albumin/Globulin Ratio 0.4L 06/23/20 08:13: Arterial Blood pH 7.444, Arterial Blood Partial Pressure CO2 51.2H, Arterial Blood Partial Pressure O2 49.8*L, Arterial Blood HCO3 34.3H, Arterial Blood Oxygen Saturation 82.3*L, Arterial Blood Base Excess 9.0H, Jeremiah Test Positive Height (Feet): 5 Height (Inches): 5.00 Weight (Pounds): 308 General Appearance: other - intubated EENT: other - ETT Cardiovascular: tachycardia Respiratory/Chest: decreased breath sounds Abdomen: normal bowel sounds Objective Current Medications Medications (Trade) Dose Ordered Sig/Zelda Route PRN Reason Start Time Stop Time Status Last Admin Dose Admin Acetaminophen (Tylenol) 650 mg Q4H PRN NG Temp >100.5 05/31/20 21:45 06/30/20 21:44 06/21/20 12:19 Acetaminophen (Tylenol) 650 mg Q6H PRN NG Mild Pain (Pain Scale 1-3) 06/06/20 18:00 07/06/20 17:59 06/13/20 23:10 Chlorhexidine Gluconate (Inna-Hex 2%) 1 applic DAILY@2000 TOPIC 05/30/20 20:00 08/28/20 19:59 06/22/20 19:31 Dextrose (Dextrose 50%) 25 ml Q30M PRN IV Hypoglycemia 06/05/20 10:45 09/03/20 10:44 Dextrose (Dextrose 50%) 50 ml Q30M PRN IV Hypoglycemia 06/05/20 10:45 09/03/20 10:44 Docusate Sodium (Colace) 100 mg Q12HR GT 06/07/20 21:00 07/07/20 20:59 06/23/20 08:49 Enoxaparin Sodium (Lovenox) 40 mg DAILY SUBQ 05/30/20 10:00 08/28/20 09:59 06/23/20 08:52 Furosemide (Lasix) 40 mg DAILY IV 06/22/20 09:00 07/22/20 08:59 06/23/20 08:49 Insulin Aspart (NovoLOG) EVERY 6 HOURS SUBQ 06/07/20 00:00 09/03/20 11:59 06/21/20 12:00 Midazolam HCl 100 mg/Sodium Chloride 200 ml @ 0 mls/hr Q24H PRN IV sedation 06/22/20 01:00 06/23/20 11:29 06/23/20 05:55 Midazolam HCl 100 mg/Sodium Chloride 200 ml @ 0 mls/hr Q24H PRN IV sedation 06/23/20 12:00 06/25/20 11:59 Midodrine (Pro-Amatine) 10 mg Q8HR ORAL 06/14/20 14:00 09/12/20 13:59 06/22/20 05:45 Pantoprazole (Protonix) 40 mg Q12HR IVP 06/13/20 21:00 07/03/20 08:59 06/23/20 08:49 Polyethylene Glycol (Miralax) 17 gm BEDTIME GT 06/07/20 21:00 07/07/20 20:59 06/17/20 21:02 Assessment/Plan Problem List: (1) Diabetes mellitus out of control ICD Codes: E11.65 - Type 2 diabetes mellitus with hyperglycemia SNOMED: 68668221, 211635275 (2) Pneumonia due to COVID-19 virus ICD Codes: U07.1 - COVID-19; J12.82 - Pneumonia due to coronavirus disease 2019 SNOMED: 530007645633721962 (3) Respiratory distress ICD Codes: R06.03 - Acute respiratory distress; J12.82 - Pneumonia due to coronavirus disease 2019 SNOMED: 057471894 Status: unchanged Assessment/Plan: no need for basal insulin continue Novolog sliding scale every 6 hours Huber Adame MD Jun 23, 2020 11:12
[2020-06-23] MEDS ORDERED: Versed 50mg/NS 100ml 100 ML IV PRN (12:00)
--- NOTE | 2020-06-23 12:08 | NUR ---
INSURANCE CLINICALS FAXED TO [facility] T: [phone] EXT [id number] F: [phone]
--- NOTE | 2020-06-23 12:21 | Nephrology Progress Note ---
Assessment/Plan Problem List: (1) DEVENDRA (acute kidney injury) (2) Morbid obesity (3) Diabetes mellitus out of control (4) Pneumonia due to COVID-19 virus (5) Respiratory failure Assessment Acute renal failure Obstructive uropathy, clogged Lennon Respiratory failure COVID-19 pneumonia Morbid obesity Plan June 23: Labs reviewed. Renal parameters stable. Discussed with RN. Abnormal electrolyte addressed. Remains full code. Remains on ventilator. Continue per consultants. June 22: Labs reviewed. Low potassium addressed. Discussed with RAKEL Moran. Patient full code. Remains on ventilator. Continue to monitor renal parameters. June 21. Labs reviewed. Abnormal electrolyte addressed. Full code. Remains on ventilator. Medication list reviewed. Continue per pulmonary management. DC IV fluid, resume Lasix daily, check chest x-ray. June 20: Labs reviewed. Abnormal electrolytes. Patient remains full code. Continue per consultants. Noted and addressed June 19: Labs reviewed. Abnormal electrolytes noted and addressed. Remains intubated on ventilator. Remains full code. June 18: Labs reviewed. Remains intubated on ventilator. Full code. Abnormal electrolyte addressed. Continue as is. June 17: Labs reviewed. Abnormal electrolytes addressed. Patient remains full code and intubated on ventilator. Continue per consultants. Renal parameters are within normal limits. June 16: Labs reviewed. Potassium chloride replaced. Remains full code. Remains intubated on ventilator. Continue per consultants. Continue to monitor renal parameters. June 15: Labs reviewed. Serum creatinine 1. Stable from renal standpoint to view. Continue per consultants. June 14: Labs reviewed. Full code. Serum creatinine of 3.5 down to 1.4. Low potassium addressed. Continue per current treatment plan. Continue to monitor renal parameters. Midodrine started. Albumin bolus given. Previously: DC Lasix drip Increase Protonix dose Monitor renal parameters, electrolytes Per orders Subjective ROS Limited/Unobtainable: Yes Objective Objective Last 24 Hour Vital Signs Date Time Temp Pulse Resp B/P (MAP) Pulse Ox O2 Delivery O2 Flow Rate FiO2 06/23/20 10:00 95 35 137/87 (104) 88 06/23/20 10:00 101 31 93 06/23/20 09:30 98 31 122/81 (95) 94 06/23/20 09:00 98 35 135/79 (97) 88 06/23/20 09:00 95 35 137/87 (104) 88 06/23/20 08:30 93 33 141/85 (103) 85 06/23/20 08:00 96 34 89 06/23/20 08:00 100 06/23/20 08:00 98 06/23/20 08:00 97.6 98 34 130/85 (100) 95 06/23/20 08:00 96 34 141/92 (108) 89 06/23/20 08:00 Mechanical Ventilator Mechanical Ventilator 06/23/20 07:30 95 31 133/85 (101) 93 06/23/20 07:21 96 33 100 06/23/20 07:00 95 35 137/87 (104) 88 06/23/20 07:00 95 35 137/87 (104) 88 06/23/20 07:00 35 Mechanical Ventilator 100 06/23/20 06:30 96 32 06/23/20 06:00 96 34 131/87 (102) 92 06/23/20 06:00 34 Mechanical Ventilator 100 06/23/20 05:55 33 Mechanical Ventilator 100 06/23/20 05:18 90 34 100 06/23/20 05:00 95 33 138/86 (103) 90 06/23/20 05:00 33 Mechanical Ventilator 100 06/23/20 04:00 100 06/23/20 04:00 98 06/23/20 04:00 34 Mechanical Ventilator 100 06/23/20 04:00 Mechanical Ventilator Mechanical Ventilator 06/23/20 04:00 97.6 98 34 130/85 (100) 95 06/23/20 03:18 93 34 100 06/23/20 03:00 93 34 143/83 (103) 93 06/23/20 03:00 34 Mechanical Ventilator 100 06/23/20 02:00 95 33 128/84 (99) 95 06/23/20 02:00 33 Mechanical Ventilator 100 06/23/20 01:16 94 29 100 06/23/20 01:00 103 30 127/87 (100) 94 06/23/20 01:00 30 Mechanical Ventilator 100 06/23/20 00:00 Mechanical Ventilator Mechanical Ventilator 06/23/20 00:00 98.2 95 30 125/81 (96) 97 06/23/20 00:00 100 06/23/20 00:00 30 Mechanical Ventilator 100 06/22/20 23:14 94 31 100 06/22/20 23:01 24 Mechanical Ventilator 100 06/22/20 23:00 93 26 109/68 (82) 96 06/22/20 22:00 94 29 118/77 (91) 97 06/22/20 22:00 29 Mechanical Ventilator 100 06/22/20 21:06 99 30 100 06/22/20 21:00 28 Mechanical Ventilator 100 06/22/20 21:00 98 28 127/78 (94) 97 06/22/20 20:30 104 28 128/97 (107) 93 06/22/20 20:00 Mechanical Ventilator Mechanical Ventilator 06/22/20 20:00 30 Mechanical Ventilator 100 06/22/20 20:00 98.1 97 30 131/83 (99) 96 06/22/20 20:00 97 06/22/20 20:00 100 06/22/20 19:15 94 30 100 06/22/20 19:00 33 Mechanical Ventilator 100 06/22/20 19:00 93 33 122/86 (98) 95 06/22/20 18:00 93 35 126/86 (99) 95 06/22/20 18:00 35 Mechanical Ventilator 100 06/22/20 17:45 93 36 122/80 (94) 93 06/22/20 17:30 94 36 129/80 (96) 94 06/22/20 17:15 94 33 130/82 (98) 95 06/22/20 17:00 33 Mechanical Ventilator 100 06/22/20 17:00 94 33 132/83 (99) 96 06/22/20 16:45 30 Mechanical Ventilator 100 06/22/20 16:45 93 30 118/83 (95) 96 06/22/20 16:41 102 38 100 06/22/20 16:20 30 Mechanical Ventilator 100 06/22/20 16:00 98.5 90 22 120/79 (93) 96 06/22/20 16:00 Mechanical Ventilator Mechanical Ventilator 06/22/20 16:00 22 Mechanical Ventilator 100 06/22/20 16:00 100 06/22/20 15:39 95 06/22/20 15:26 99 38 100 06/22/20 15:00 101 33 125/78 (94) 93 06/22/20 15:00 33 Mechanical Ventilator 100 06/22/20 14:00 98 24 103/69 (80) 96 06/22/20 14:00 24 Mechanical Ventilator 100 06/22/20 13:19 96 30 100 06/22/20 13:00 98.0 88 28 104/68 (80) 93 06/22/20 13:00 28 Mechanical Ventilator 100 Intake and Output 06/22/20 06/23/20 19:00 07:00 Intake Total 432.60 ml 352.5 ml Output Total 755 ml 3280 ml Balance -322.40 ml -2927.5 ml IV Total 432.60 ml 352.5 ml Output Urine Total 735 ml 3220 ml Stool Total 20 ml 60 ml # Bowel Movements 3 Current Medications Medications (Trade) Dose Ordered Sig/Zelda Route PRN Reason Start Time Stop Time Status Last Admin Dose Admin Acetaminophen (Tylenol) 650 mg Q4H PRN NG Temp >100.5 05/31/20 21:45 06/30/20 21:44 06/21/20 12:19 Acetaminophen (Tylenol) 650 mg Q6H PRN NG Mild Pain (Pain Scale 1-3) 06/06/20 18:00 07/06/20 17:59 06/13/20 23:10 Chlorhexidine Gluconate (Inna-Hex 2%) 1 applic DAILY@2000 TOPIC 05/30/20 20:00 08/28/20 19:59 06/22/20 19:31 Dextrose (Dextrose 50%) 25 ml Q30M PRN IV Hypoglycemia 06/05/20 10:45 09/03/20 10:44 Dextrose (Dextrose 50%) 50 ml Q30M PRN IV Hypoglycemia 06/05/20 10:45 09/03/20 10:44 Docusate Sodium (Colace) 100 mg Q12HR GT 06/07/20 21:00 07/07/20 20:59 06/23/20 08:49 Enoxaparin Sodium (Lovenox) 40 mg DAILY SUBQ 05/30/20 10:00 08/28/20 09:59 06/23/20 08:52 Furosemide (Lasix) 40 mg DAILY IV 06/22/20 09:00 07/22/20 08:59 06/23/20 08:49 Insulin Aspart (NovoLOG) EVERY 6 HOURS SUBQ 06/07/20 00:00 09/03/20 11:59 06/21/20 12:00 Midazolam HCl 100 mg/Sodium Chloride 200 ml @ 0 mls/hr Q24H PRN IV sedation 06/23/20 12:00 06/25/20 11:59 Midodrine (Pro-Amatine) 10 mg Q8HR ORAL 06/14/20 14:00 09/12/20 13:59 06/22/20 05:45 Pantoprazole (Protonix) 40 mg Q12HR IVP 06/13/20 21:00 07/03/20 08:59 06/23/20 08:49 Polyethylene Glycol (Miralax) 17 gm BEDTIME GT 06/07/20 21:00 07/07/20 20:59 06/17/20 21:02 Laboratory Tests 06/23/20 05:31: White Blood Count 7.7, Red Blood Count 3.09L, Hemoglobin 9.0L, Hematocrit 28.2L, Mean Corpuscular Volume 92, Mean Corpuscular Hemoglobin 29.1, Mean Corpuscular Hemoglobin Concent 31.8L, Red Cell Distribution Width 16.2H, Platelet Count 212, Mean Platelet Volume 7.4, Neutrophils (%) (Auto) 75.1H, Lymphocytes (%) (Auto) 9.6L, Monocytes (%) (Auto) 5.4, Eosinophils (%) (Auto) 7.8H, Basophils (%) (Auto) 2.2H, Sodium Level 142, Potassium Level 3.7, Chloride Level 101, Carbon Dioxide Level 34H, Anion Gap 7, Blood Urea Nitrogen 23H, Creatinine 0.5L, Estimat Glomerular Filtration Rate > 60, Glucose Level 102, Calcium Level 8.8, Phosphorus Level 3.8, Magnesium Level 1.8, Total Bilirubin 1.2H, Direct Bilirubin 0.2, Aspartate Amino Transf (AST/SGOT) 32, Alanine Aminotransferase (ALT/SGPT) 18, Alkaline Phosphatase 84, C-Reactive Protein, Quantitative 21.3H, Pro-B-Type Natriuretic Peptide 1376H, Total Protein 6.7, Albumin 1.9L, Globulin 4.8, Albumin/Globulin Ratio 0.4L 06/23/20 08:13: Arterial Blood pH 7.444, Arterial Blood Partial Pressure CO2 51.2H, Arterial Blood Partial Pressure O2 49.8*L, Arterial Blood HCO3 34.3H, Arterial Blood Oxygen Saturation 82.3*L, Arterial Blood Base Excess 9.0H, Jeremiah Test Positive 06/23/20 12:16: POC Whole Blood Glucose 117H Height (Feet): 5 Height (Inches): 5.00 Weight (Pounds): 308 General Appearance: no apparent distress EENT: other - Intubated on ventilator Cardiovascular: tachycardia Respiratory/Chest: decreased breath sounds Abdomen: distended Rigo Tyler MD Jun 23, 2020 12:21
--- NOTE | 2020-06-23 12:28 | Surgery Progress Note ---
Surgery Progress Note Subjective Additional Comments peep up to 7 fio2 100 ill appearing on support Objective Last 24 Hour Vital Signs Date Time Temp Pulse Resp B/P (MAP) Pulse Ox O2 Delivery O2 Flow Rate FiO2 06/23/20 10:00 95 35 137/87 (104) 88 06/23/20 10:00 101 31 93 06/23/20 09:30 98 31 122/81 (95) 94 06/23/20 09:00 98 35 135/79 (97) 88 06/23/20 09:00 95 35 137/87 (104) 88 06/23/20 08:30 93 33 141/85 (103) 85 06/23/20 08:00 96 34 89 06/23/20 08:00 100 06/23/20 08:00 98 06/23/20 08:00 97.6 98 34 130/85 (100) 95 06/23/20 08:00 96 34 141/92 (108) 89 06/23/20 08:00 Mechanical Ventilator Mechanical Ventilator 06/23/20 07:30 95 31 133/85 (101) 93 06/23/20 07:21 96 33 100 06/23/20 07:00 95 35 137/87 (104) 88 06/23/20 07:00 95 35 137/87 (104) 88 06/23/20 07:00 35 Mechanical Ventilator 100 06/23/20 06:30 96 32 06/23/20 06:00 96 34 131/87 (102) 92 06/23/20 06:00 34 Mechanical Ventilator 100 06/23/20 05:55 33 Mechanical Ventilator 100 06/23/20 05:18 90 34 100 06/23/20 05:00 95 33 138/86 (103) 90 06/23/20 05:00 33 Mechanical Ventilator 100 06/23/20 04:00 100 06/23/20 04:00 98 06/23/20 04:00 34 Mechanical Ventilator 100 06/23/20 04:00 Mechanical Ventilator Mechanical Ventilator 06/23/20 04:00 97.6 98 34 130/85 (100) 95 06/23/20 03:18 93 34 100 06/23/20 03:00 93 34 143/83 (103) 93 06/23/20 03:00 34 Mechanical Ventilator 100 06/23/20 02:00 95 33 128/84 (99) 95 06/23/20 02:00 33 Mechanical Ventilator 100 06/23/20 01:16 94 29 100 06/23/20 01:00 103 30 127/87 (100) 94 06/23/20 01:00 30 Mechanical Ventilator 100 06/23/20 00:00 Mechanical Ventilator Mechanical Ventilator 06/23/20 00:00 98.2 95 30 125/81 (96) 97 06/23/20 00:00 100 06/23/20 00:00 30 Mechanical Ventilator 100 06/22/20 23:14 94 31 100 06/22/20 23:01 24 Mechanical Ventilator 100 06/22/20 23:00 93 26 109/68 (82) 96 06/22/20 22:00 94 29 118/77 (91) 97 06/22/20 22:00 29 Mechanical Ventilator 100 06/22/20 21:06 99 30 100 06/22/20 21:00 28 Mechanical Ventilator 100 06/22/20 21:00 98 28 127/78 (94) 97 06/22/20 20:30 104 28 128/97 (107) 93 06/22/20 20:00 Mechanical Ventilator Mechanical Ventilator 06/22/20 20:00 30 Mechanical Ventilator 100 06/22/20 20:00 98.1 97 30 131/83 (99) 96 06/22/20 20:00 97 06/22/20 20:00 100 06/22/20 19:15 94 30 100 06/22/20 19:00 33 Mechanical Ventilator 100 06/22/20 19:00 93 33 122/86 (98) 95 06/22/20 18:00 93 35 126/86 (99) 95 06/22/20 18:00 35 Mechanical Ventilator 100 06/22/20 17:45 93 36 122/80 (94) 93 06/22/20 17:30 94 36 129/80 (96) 94 06/22/20 17:15 94 33 130/82 (98) 95 06/22/20 17:00 33 Mechanical Ventilator 100 06/22/20 17:00 94 33 132/83 (99) 96 06/22/20 16:45 30 Mechanical Ventilator 100 06/22/20 16:45 93 30 118/83 (95) 96 06/22/20 16:41 102 38 100 06/22/20 16:20 30 Mechanical Ventilator 100 06/22/20 16:00 98.5 90 22 120/79 (93) 96 06/22/20 16:00 Mechanical Ventilator Mechanical Ventilator 06/22/20 16:00 22 Mechanical Ventilator 100 06/22/20 16:00 100 06/22/20 15:39 95 06/22/20 15:26 99 38 100 06/22/20 15:00 101 33 125/78 (94) 93 06/22/20 15:00 33 Mechanical Ventilator 100 06/22/20 14:00 98 24 103/69 (80) 96 06/22/20 14:00 24 Mechanical Ventilator 100 06/22/20 13:19 96 30 100 06/22/20 13:00 98.0 88 28 104/68 (80) 93 06/22/20 13:00 28 Mechanical Ventilator 100 I&O Intake and Output 06/22/20 06/23/20 19:00 07:00 Intake Total 432.60 ml 352.5 ml Output Total 755 ml 3280 ml Balance -322.40 ml -2927.5 ml IV Total 432.60 ml 352.5 ml Output Urine Total 735 ml 3220 ml Stool Total 20 ml 60 ml # Bowel Movements 3 Cardiovascular: RSR Respiratory: decreased breath sounds Abdomen: soft, non-tender, present bowel sounds, non-distended Extremities: edema, no tenderness, no cyanosis Laboratory Tests Test 06/23/20 05:31 06/23/20 08:13 06/23/20 12:16 White Blood Count 7.7 K/UL (4.8-10.8) Red Blood Count 3.09 M/UL (4.20-5.40) L Hemoglobin 9.0 G/DL (12.0-16.0) L Hematocrit 28.2 % (37.0-47.0) L Mean Corpuscular Volume 92 FL (80-99) Mean Corpuscular Hemoglobin 29.1 PG (27.0-31.0) Mean Corpuscular Hemoglobin Concent 31.8 G/DL (32.0-36.0) L Red Cell Distribution Width 16.2 % (11.6-14.8) H Platelet Count 212 K/UL (150-450) Mean Platelet Volume 7.4 FL (6.5-10.1) Neutrophils (%) (Auto) 75.1 % (45.0-75.0) H Lymphocytes (%) (Auto) 9.6 % (20.0-45.0) L Monocytes (%) (Auto) 5.4 % (1.0-10.0) Eosinophils (%) (Auto) 7.8 % (0.0-3.0) H Basophils (%) (Auto) 2.2 % (0.0-2.0) H Sodium Level 142 MMOL/L (136-145) Potassium Level 3.7 MMOL/L (3.5-5.1) Chloride Level 101 MMOL/L (98-107) Carbon Dioxide Level 34 MMOL/L (21-32) H Anion Gap 7 mmol/L (5-15) Blood Urea Nitrogen 23 mg/dL (7-18) H Creatinine 0.5 MG/DL (0.55-1.30) L Estimat Glomerular Filtration Rate > 60 mL/min (>60) Glucose Level 102 MG/DL (74-106) Calcium Level 8.8 MG/DL (8.5-10.1) Phosphorus Level 3.8 MG/DL (2.5-4.9) Magnesium Level 1.8 MG/DL (1.8-2.4) Total Bilirubin 1.2 MG/DL (0.2-1.0) H Direct Bilirubin 0.2 MG/DL (0.0-0.3) Aspartate Amino Transf (AST/SGOT) 32 U/L (15-37) Alanine Aminotransferase (ALT/SGPT) 18 U/L (12-78) Alkaline Phosphatase 84 U/L (46-116) C-Reactive Protein, Quantitative 21.3 mg/dL (0.00-0.90) H Pro-B-Type Natriuretic Peptide 1376 pg/mL (0-125) H Total Protein 6.7 G/DL (6.4-8.2) Albumin 1.9 G/DL (3.4-5.0) L Globulin 4.8 g/dL Albumin/Globulin Ratio 0.4 (1.0-2.7) L Arterial Blood pH 7.444 (7.350-7.450) Arterial Blood Partial Pressure CO2 51.2 mmHg (35.0-45.0) H Arterial Blood Partial Pressure O2 49.8 mmHg (75.0-100.0) Arterial Blood HCO3 34.3 mmol/L (22.0-26.0) H Arterial Blood Oxygen Saturation 82.3 % (95-100) *L Arterial Blood Base Excess 9.0 (-2-2) H Jeremiah Test Positive POC Whole Blood Glucose 117 MG/DL (74-106) H Plan Problems: (1) Respiratory distress (2) Respiratory failure Assessment & Plan: 50-year-old female Covid positive respiratory insufficiency intubated on ventilatory support declining. Leukocytosis increase oxygen requirement. Vent settings per pulmonology reviewed identified and agree. Unfortunately further surgical invention at this time is not appropriate as patient is not a candidate and her current condition. Prognosis overall guarded. Tracheostomy can be considered in the future if recovering or shows improvement and requires unable to be weaned from ventilator support. Currently okay for nutritional optimization with NG tube. Will need significant monitoring for decubitus formation given patient's size and condition. Okay for air mattress tolerated. Turn every 2 hours as tolerated. Patient is otherwise critically ill and blood pressure labile. Will need to monitor closely.Bilateral infiltrates are again demonstrated. Stable tube and line positions. will need trach will need to wean vent first (3) Hypoxia (4) Pneumonia due to COVID-19 virus Assessment & Plan: ++ as per pulm and ID (5) Diabetes mellitus out of control Assessment & Plan: DAILY ESTIMATED NEEDS: Needs based on Critical care, obesity 11-14kcal/kg actual body wt (140kg) kcals/kg 7165-4232 total kcals 1.5-2.0g prot/kg IBW (64.5kg) g protein/kg 96-129 g total protein 25-30ml/kg abw (83kg) mL/kg 5708-1339 total fluid mLs NUTRITION DIAGNOSIS: Swallowing difficulty R/T respiratory failure as evidenced by pt orally intubated and sedated, on OGT feeds. CURRENT TF: Vital 1.2 goal of 60ml/hr ENTERAL NUTRITION RECOMMENDATIONS: Vital AF 1.2 @ 60ml/hr x 24 hrs to provide 1440ml, 1728kcal, 108g prot, 1168ml free water * Maintain current critical care and carb controlled TF formula of Vital AF * TF @ goal meeds 100% est kcal/prot needs * HOB over 30 degrees/ water flush per MD TF may be lowered to 55ml/hr for improved BG control while maintaining Kcal and pro needs. ADDITIONAL RECOMMENDATIONS: * Calibrated bedscale wt * Monitor Propofol rate, need for TF adjustment-> now off * Monitor BGs closely : now improved, on novolog q 6rs + NISS * Monitor lytes- K elevated, monitor need for TF change * Rec bowel regimen- now w/ rectal tube . Az Devine Jun 23, 2020 12:28
--- NOTE | 2020-06-23 19:30 | NUR ---
NURSE NOTES: Received report from RAKEL Mahan. Pt is sedated on the bed RASS -2. Pt has ETT and orally intubated. Vent dependent d setting with AC: 15, T: 600, P:7, FiO2 100% and SaO2 95% noted. on surveillance system monitor with SR. Pt has NGT in placed. On NPO. Pt has Lennon cath and rectal tube and in placed and patent, drainage well. No fever noted with cooling measure. Rt. upper Arm PICC line site dressing is clean and dry and on running with Versed drip @ 15mg/hr. Pt has bilateral soft restraint checked comfort and circulation. Pt has bilateral hand and arms swelling. elevated both arms with pillow. Placed fall precaution. On proper isolation for COVID-19. Will continue to care plan.
[2020-06-23] MEDS: Dyna-Hex 2% Top Sol 2oz TOPIC SCH (20:00)
[2020-06-23] MEDS ORDERED: Sterile Water Irrig 1000ml IRRIG ONE (20:34)
[2020-06-23] MEDS ORDERED: NS 275ml ONE (20:34)
[2020-06-23] MEDS ORDERED: Tubing IV Secondary IV ONE (20:34)
[2020-06-23] MEDS: Miralax 17gm pkt GT SCH (21:00)
--- NOTE | 2020-06-23 22:00 | NUR ---
NURSE NOTES: SaO2 95% with current Vent setting. Given oral care and suction. Turn ad reposition. Will continue to monitor any change of condition.
[2020-06-24] VITALS (37 sets, daily range): BP systolic 83–125; BP diastolic 54–83
--- NOTE | 2020-06-24 | NUR ---
NURSE NOTES: Pt is sedated on the bed and RASS score -2. on running with Versed drip @ 15mg/hr. No fever with cooling measure. SaO2 98% with current Vent setting. Provided suction. changed position. Will continue to monitor any change of condition.
--- NOTE | 2020-06-24 02:00 | NUR ---
NURSE NOTES: SaO2 98% with Vent. No fever. Turn and reposition. on monitor technician with SR. Will continue to monitor any change of condition.
[2020-06-24] MEDS: Midazolam HCl 50mg/10ml vial 100 MG in NS 180 ML IV PRN ×3 (02:31→16:57)
--- NOTE | 2020-06-24 04:00 | NUR ---
NURSE NOTES: Morning care was done. cleaned Pt and applied lotion and cream. No open wound noted. no fever. Hold tube feeding. SaO2 98-99% with Current Vent setting. Given suction. Sedated on the bed and RASS score -2. Patent and marrero anc rectal tube. Turn and reposition. Will continue to monitor any change of condition.
[2020-06-24] MEDS: Midodrine 10mg tab ORAL SCH ×3 (05:54→22:14)
[2020-06-24] MEDS: NovoLOG Insulin Flexpen SUBQ SCH ×4 (06:00→18:00)
--- NOTE | 2020-06-24 06:34 | General Progress Note ---
Subjective ROS Limited/Unobtainable: Yes Allergies: Coded Allergies: No Known Allergies (Unverified , 05/28/20) Subjective events noted interval notes reviewed glucose values are stable intubated in ICU Item Value Date Time Bedside Blood Glucose 97 mg/dl 06/24/20 0600 Bedside Blood Glucose 115 mg/dl 06/24/20 0000 Bedside Blood Glucose 114 mg/dl 06/23/20 1800 Bedside Blood Glucose 117 mg/dl 06/23/20 1200 Bedside Blood Glucose 104 mg/dl 06/23/20 0530 Objective Last 24 Hour Vital Signs Date Time Temp Pulse Resp B/P (MAP) Pulse Ox O2 Delivery O2 Flow Rate FiO2 06/24/20 06:00 30 Mechanical Ventilator 100 06/24/20 06:00 105 30 109/66 (80) 100 06/24/20 05:00 30 Mechanical Ventilator 100 06/24/20 05:00 108 30 116/74 (88) 100 06/24/20 04:00 98.0 110 31 110/63 (79) 99 06/24/20 04:00 109 06/24/20 04:00 31 Mechanical Ventilator 100 06/24/20 04:00 Mechanical Ventilator Mechanical Ventilator 06/24/20 04:00 100 06/24/20 03:20 95 32 100 06/24/20 03:00 29 Mechanical Ventilator 100 06/24/20 03:00 98 29 108/69 (82) 100 06/24/20 02:31 23 Mechanical Ventilator 100 06/24/20 02:30 23 Mechanical Ventilator 100 06/24/20 02:00 98 31 114/75 (88) 98 06/24/20 02:00 31 Mechanical Ventilator 100 06/24/20 01:00 30 Mechanical Ventilator 100 06/24/20 01:00 100 30 111/78 (89) 99 06/24/20 00:00 Mechanical Ventilator Mechanical Ventilator 06/24/20 00:00 97.0 97 32 125/83 (97) 98 06/24/20 00:00 32 Mechanical Ventilator 100 06/24/20 00:00 97 06/24/20 00:00 100 06/23/20 23:20 95 32 100 06/23/20 23:00 97 33 139/79 (99) 95 06/23/20 23:00 33 Mechanical Ventilator 100 06/23/20 22:00 34 Mechanical Ventilator 100 06/23/20 22:00 98 34 140/86 (104) 95 06/23/20 21:00 97 31 123/73 (90) 98 06/23/20 21:00 31 Mechanical Ventilator 100 06/23/20 20:14 34 Mechanical Ventilator 100 06/23/20 20:00 100 06/23/20 20:00 99 06/23/20 20:00 34 Mechanical Ventilator 100 06/23/20 20:00 Mechanical Ventilator Mechanical Ventilator 06/23/20 20:00 97.0 97 34 132/75 (94) 96 06/23/20 19:10 95 32 100 06/23/20 19:00 34 Mechanical Ventilator 100 06/23/20 19:00 96 34 138/80 (99) 95 06/23/20 18:00 109 33 120/69 (86) 96 06/23/20 18:00 33 Mechanical Ventilator 100 06/23/20 17:36 98 33 100 06/23/20 17:00 109 33 120/69 (86) 96 06/23/20 17:00 33 Mechanical Ventilator 100 06/23/20 16:00 100 06/23/20 16:00 33 Mechanical Ventilator 100 06/23/20 16:00 109 33 120/69 (86) 96 06/23/20 16:00 98 06/23/20 16:00 Mechanical Ventilator Mechanical Ventilator 06/23/20 15:20 97 34 100 06/23/20 15:00 109 33 120/69 (86) 96 06/23/20 15:00 33 Mechanical Ventilator 100 06/23/20 14:00 34 Mechanical Ventilator 100 06/23/20 14:00 105 34 95 06/23/20 13:34 Mechanical Ventilator 100 06/23/20 13:30 109 33 120/69 (86) 96 06/23/20 13:23 117 30 100 06/23/20 13:00 106 37 111/70 (84) 97 06/23/20 13:00 106 37 111/70 (84) 97 06/23/20 12:30 106 32 103/71 (82) 97 06/23/20 12:00 106 33 96/58 (71) 97 06/23/20 12:00 100 06/23/20 12:00 98.0 106 33 96/58 (71) 97 06/23/20 12:00 Mechanical Ventilator Mechanical Ventilator 1/31/21 12:00 33 Mechanical Ventilator 100 06/23/20 12:00 98 06/23/20 11:30 105 30 100/66 (77) 96 06/23/20 11:26 115 29 100 06/23/20 11:00 29 Mechanical Ventilator 100 06/23/20 11:00 101 29 104/71 (82) 94 06/23/20 11:00 101 29 104/71 (82) 94 06/23/20 10:30 100 30 117/72 (87) 94 06/23/20 10:00 95 35 137/87 (104) 88 06/23/20 10:00 31 Mechanical Ventilator 100 06/23/20 10:00 101 31 113/85 (94) 93 06/23/20 10:00 101 31 93 06/23/20 09:30 98 31 122/81 (95) 94 06/23/20 09:30 98 31 122/81 (95) 94 06/23/20 09:22 110 32 100 06/23/20 09:00 98 35 135/79 (97) 88 06/23/20 09:00 98 35 135/79 (97) 88 06/23/20 09:00 35 Mechanical Ventilator 100 06/23/20 09:00 98 35 135/79 (97) 88 06/23/20 09:00 98 35 135/79 (97) 88 06/23/20 09:00 95 35 137/87 (104) 88 06/23/20 08:30 93 33 141/85 (103) 85 06/23/20 08:30 93 33 141/85 (103) 85 06/23/20 08:30 93 33 141/85 (103) 85 06/23/20 08:00 96 34 89 06/23/20 08:00 96 34 89 06/23/20 08:00 100 06/23/20 08:00 98 06/23/20 08:00 34 Mechanical Ventilator 100 06/23/20 08:00 97.6 98 34 130/85 (100) 95 06/23/20 08:00 96 34 141/92 (108) 89 06/23/20 08:00 96 34 141/92 (108) 89 06/23/20 08:00 Mechanical Ventilator Mechanical Ventilator 06/23/20 07:30 95 31 133/85 (101) 93 06/23/20 07:30 95 31 133/85 (101) 93 06/23/20 07:30 95 31 133/85 (101) 93 06/23/20 07:21 96 33 100 06/23/20 07:00 95 35 137/87 (104) 88 06/23/20 07:00 95 35 137/87 (104) 88 06/23/20 07:00 95 35 137/87 (104) 88 06/23/20 07:00 35 Mechanical Ventilator 100 06/23/20 07:00 95 35 137/87 (104) 88 Intake and Output 06/23/20 06/24/20 19:00 07:00 Intake Total 330.5 ml 572.5 ml Output Total 2860 ml 730 ml Balance -2529.5 ml -157.5 ml IV Total 330.5 ml 322.5 ml Blood Product 250 ml Output Urine Total 2860 ml 630 ml Stool Total 100 ml Laboratory Tests 06/23/20 08:13: Arterial Blood pH 7.444, Arterial Blood Partial Pressure CO2 51.2H, Arterial Blood Partial Pressure O2 49.8*L, Arterial Blood HCO3 34.3H, Arterial Blood Oxygen Saturation 82.3*L, Arterial Blood Base Excess 9.0H, Jeremiah Test Positive 06/23/20 12:16: POC Whole Blood Glucose 117H Height (Feet): 5 Height (Inches): 5.00 Weight (Pounds): 308 Objective Current Medications Medications (Trade) Dose Ordered Sig/Zelda Route PRN Reason Start Time Stop Time Status Last Admin Dose Admin Acetaminophen (Tylenol) 650 mg Q4H PRN NG Temp >100.5 05/31/20 21:45 06/30/20 21:44 06/21/20 12:19 Acetaminophen (Tylenol) 650 mg Q6H PRN NG Mild Pain (Pain Scale 1-3) 06/06/20 18:00 07/06/20 17:59 06/13/20 23:10 Chlorhexidine Gluconate (Inna-Hex 2%) 1 applic DAILY@1999 TOPIC 05/30/20 20:00 08/28/20 19:59 06/23/20 20:00 Dextrose (Dextrose 50%) 25 ml Q30M PRN IV Hypoglycemia 06/05/20 10:45 09/03/20 10:44 Dextrose (Dextrose 50%) 50 ml Q30M PRN IV Hypoglycemia 06/05/20 10:45 09/03/20 10:44 Docusate Sodium (Colace) 100 mg Q12HR GT 06/07/20 21:00 07/07/20 20:59 06/23/20 08:49 Enoxaparin Sodium (Lovenox) 40 mg DAILY SUBQ 05/30/20 10:00 08/28/20 09:59 06/23/20 08:52 Furosemide (Lasix) 40 mg DAILY IV 06/22/20 09:00 07/22/20 08:59 06/23/20 08:49 Insulin Aspart (NovoLOG) EVERY 6 HOURS SUBQ 06/07/20 00:00 09/03/20 11:59 06/21/20 12:00 Midazolam HCl 100 mg/Sodium Chloride 200 ml @ 0 mls/hr Q24H PRN IV sedation 06/23/20 12:00 06/25/20 11:59 06/24/20 02:31 Midodrine (Pro-Amatine) 10 mg Q8HR ORAL 06/14/20 14:00 09/12/20 13:59 06/24/20 05:54 Pantoprazole (Protonix) 40 mg Q12HR IVP 06/13/20 21:00 07/03/20 08:59 06/23/20 20:13 Polyethylene Glycol (Miralax) 17 gm BEDTIME GT 06/07/20 21:00 07/07/20 20:59 06/17/20 21:02 Assessment/Plan Problem List: (1) Diabetes mellitus out of control ICD Codes: E11.65 - Type 2 diabetes mellitus with hyperglycemia SNOMED: 61830140, 770298903 (2) Pneumonia due to COVID-19 virus ICD Codes: U07.1 - COVID-19; J12.82 - Pneumonia due to coronavirus disease 2019 SNOMED: 357700254500665807 (3) Respiratory distress ICD Codes: R06.03 - Acute respiratory distress; J12.82 - Pneumonia due to coronavirus disease 2019 SNOMED: 382629454 Status: unchanged Assessment/Plan: no need for basal insulin continue Novolog sliding scale every 6 hours Huber Adame MD Jun 24, 2020 06:34
[2020-06-24 06:52] LABS: EOSINOPHILS % (AUTO) 7.4 % (0.0-3.0); HEMATOCRIT 31.9 % (37.0-47.0); HEMOGLOBIN 9.9 G/DL (12.0-16.0); LYMPHOCYTES % (AUTO) 14.1 % (20.0-45.0); MEAN CORPUSCULAR VOLUME 92 FL (80-99); MONOCYTES % (AUTO) 3.8 % (1.0-10.0); NEUTROPHILS % (AUTO) 73.7 % (45.0-75.0); PLATELET COUNT 211 K/UL (150-450); RED BLOOD COUNT 3.46 M/UL (4.20-5.40); RED CELL DISTRIBUTION WIDTH 16.5 % (11.6-14.8); WHITE BLOOD COUNT 5.9 K/UL (4.8-10.8)
[2020-06-24 07:10] LABS: ALANINE AMINOTRANSFERASE 20 U/L (12-78); ALBUMIN/GLOBULIN RATIO 0.4 (1.0-2.7); ALKALINE PHOSPHATASE 80 U/L (46-116); ANION GAP 5 mmol/L (5-15); ASPARTATE AMINO TRANSFERASE 31 U/L (15-37); BILIRUBIN,TOTAL 1.4 MG/DL (0.2-1.0); BLOOD UREA NITROGEN 26 mg/dL (7-18); CALCIUM 9.3 MG/DL (8.5-10.1); CARBON DIOXIDE 36 MMOL/L (21-32); CHLORIDE 102 MMOL/L (98-107); CREATININE 0.6 MG/DL (0.55-1.30); PHOSPHORUS 3.7 MG/DL (2.5-4.9); POTASSIUM 3.8 MMOL/L (3.5-5.1); SODIUM 143 MMOL/L (136-145)
[2020-06-24 07:11] LABS: BILIRUBIN,DIRECT 0.2 MG/DL (0.0-0.3)
--- NOTE | 2020-06-24 07:23 | NUR ---
NURSE HAND-OFF REPORT: Latest Vital Signs: Temperature 98.0 , Pulse 95 , B/P 97 /58 , Respiratory Rate 27 , O2 SAT 98 , Mechanical Ventilator, O2 Flow Rate . Vital Sign Comment: EKG Rhythm: Sinus Rhythm Rhythm change?: N Latest Meyers Fall Score: 70 Fall Risk: High Risk Safety Measures: Call light Within Reach, Bed Alarm Zone 1, Side Rails Side Rails x3, Bed position Low and Locked. Fall Precautions: Yellow Socks Door Sign Patient Fall Education Report given to RAKEL Barr. Pt is sedated on the bed and on running with Versed @ 15mg/hr.
--- NOTE | 2020-06-24 07:33 | NUR ---
NURSE NOTES: LATE ENTRY: RECEIVED REPORT FROM JESUS Jalloh PT IN BED. SEDATED. VSS. PUPILS 3MM SLUGGISH. LUNGS BILATERAL DIMINISHED. SECRETIONS THICK, WHITE. ET TUBE 7, 23CM AT LIP. VENT SETTINGS AC 15, VT 600, PEEP7, FI02 100%. ORAL CARE AND SUCTION PROVIDED. RECTAL TEMP 97. COOLING BLANKET ON MONITOR. ABDOMEN ROUND. BOWEL SOUNDS HYPERACTIVE. NO BM AT THIS TIME. RECTSL TUBE IN PLACE. GARCIA DRAINING LIGHT ANNA. LINDA PICC. VERSED AT 15ML/HR. SIDE RAILS X 3, BED ALARM ON. [place] PRECAUTIONS IN PLACE. WILL CONTINUE TO MONITOR PT.
--- NOTE | 2020-06-24 07:44 | Hematology/Onc Progress Note ---
Assessment/Plan Assessment/Plan Covering Dr. Del Cid IM # Thrombocytopenia is due to infection/underlying covid19+++ --> ABX ceftriaxone -->zosyn-->off --> on steriods likely cause of initial wbc --> per pulm --> plt 107->156-->192-->205 --> smear reviewed # Anemia due to chronic disease --> hgb goal is >7 --> transfuse prn --> ferritin is >1000 --> hold off on iron --> 10-->9.8->9-->8-->8.2-->9.4-->8.1-->9.9 # Elevated ddimer due to covid19++ --> duplex legs is negative --> underlying covid rx # Hypoxia -> due to covid19 # Hypoxemia --> rx same as above # Respiratory failure --> on vent --> per pulm # Pneumonia due to COVID-19 virus --> per pulm rx -> sp remdesivir # Diabetes mellitus out of control --> hgb a1c goal <7 # Poor prognosis # Dvt ppx lovenox sq Appreciate consultation and bowen RN Subjective Allergies: Coded Allergies: No Known Allergies (Unverified , 05/28/20) All Systems: reviewed and negative except above Subjective 06/10 nv, on vent, with ogt, on fentanyl and versed, plt stable 06/11 nv, vent adjusted is on ogt, meds reviewed 06/12 nv, vent, meds noted, labs noted, no bleeding, hgb 10.4 06/13 nv, is on vent, meds reviewed, no bleeding, cbc reviewed 06/14 nv, on vent, tachy, labs reviewed, gross hematuria, febrile overnight, abx 06/17 nv, on vent, labs noted, no major changes, feeling better overnight 06/18 nv, meds reviewed, labs noted, no major events, hgb 8.6 06/19 nv, remains intubated, with fluids, labs reviewed, meds noted 06/20 nv, intubated remains on restraints, meds noted as well, as labs 06/21 nv, remains on vent, on restraints, meds reviewed, labs noted 06/22: covering Dr. Del Cid no acute events 06/23 sedated, on vent, nv, intubated, meds reviewed, versed 06/24 nv, on vent, no night sweats, no bleeding, remains in icu Objective Objective Current Medications Medications (Trade) Dose Ordered Sig/Zelda Route PRN Reason Start Time Stop Time Status Last Admin Dose Admin Acetaminophen (Tylenol) 650 mg Q4H PRN NG Temp >100.5 05/31/20 21:45 06/30/20 21:44 06/21/20 12:19 Acetaminophen (Tylenol) 650 mg Q6H PRN NG Mild Pain (Pain Scale 1-3) 06/06/20 18:00 07/06/20 17:59 06/13/20 23:10 Chlorhexidine Gluconate (Inna-Hex 2%) 1 applic DAILY@2000 TOPIC 05/30/20 20:00 08/28/20 19:59 06/23/20 20:00 Dextrose (Dextrose 50%) 25 ml Q30M PRN IV Hypoglycemia 06/05/20 10:45 09/03/20 10:44 Dextrose (Dextrose 50%) 50 ml Q30M PRN IV Hypoglycemia 06/05/20 10:45 09/03/20 10:44 Docusate Sodium (Colace) 100 mg Q12HR GT 06/07/20 21:00 07/07/20 20:59 06/23/20 08:49 Enoxaparin Sodium (Lovenox) 40 mg DAILY SUBQ 05/30/20 10:00 08/28/20 09:59 06/23/20 08:52 Furosemide (Lasix) 40 mg DAILY IV 06/22/20 09:00 07/22/20 08:59 06/23/20 08:49 Insulin Aspart (NovoLOG) EVERY 6 HOURS SUBQ 06/07/20 00:00 09/03/20 11:59 06/21/20 12:00 Midazolam HCl 100 mg/Sodium Chloride 200 ml @ 0 mls/hr Q24H PRN IV sedation 06/23/20 12:00 06/25/20 11:59 06/24/20 02:31 Midodrine (Pro-Amatine) 10 mg Q8HR ORAL 06/14/20 14:00 09/12/20 13:59 06/24/20 05:54 Pantoprazole (Protonix) 40 mg Q12HR IVP 06/13/20 21:00 07/03/20 08:59 06/23/20 20:13 Polyethylene Glycol (Miralax) 17 gm BEDTIME GT 06/07/20 21:00 07/07/20 20:59 06/17/20 21:02 Last 24 Hour Vital Signs Date Time Temp Pulse Resp B/P (MAP) Pulse Ox O2 Delivery O2 Flow Rate FiO2 06/24/20 07:17 95 27 100 06/24/20 07:00 93 19 97/58 (71) 98 06/24/20 07:00 19 Mechanical Ventilator 100 06/24/20 06:30 94 22 108/69 (82) 100 06/24/20 06:30 94 22 06/24/20 06:00 30 Mechanical Ventilator 100 06/24/20 06:00 105 30 109/66 (80) 100 06/24/20 05:00 30 Mechanical Ventilator 100 06/24/20 05:00 108 30 116/74 (88) 100 06/24/20 04:00 98.0 110 31 110/63 (79) 99 06/24/20 04:00 109 06/24/20 04:00 31 Mechanical Ventilator 100 06/24/20 04:00 Mechanical Ventilator Mechanical Ventilator 06/24/20 04:00 100 06/24/20 03:20 95 32 100 06/24/20 03:00 29 Mechanical Ventilator 100 06/24/20 03:00 98 29 108/69 (82) 100 06/24/20 02:31 23 Mechanical Ventilator 100 06/24/20 02:30 23 Mechanical Ventilator 100 06/24/20 02:00 98 31 114/75 (88) 98 06/24/20 02:00 31 Mechanical Ventilator 100 06/24/20 01:00 30 Mechanical Ventilator 100 06/24/20 01:00 100 30 111/78 (89) 99 06/24/20 00:00 Mechanical Ventilator Mechanical Ventilator 06/24/20 00:00 97.0 97 32 125/83 (97) 98 06/24/20 00:00 32 Mechanical Ventilator 100 06/24/20 00:00 97 06/24/20 00:00 100 06/23/20 23:20 95 32 100 06/23/20 23:00 97 33 139/79 (99) 95 06/23/20 23:00 33 Mechanical Ventilator 100 06/23/20 22:00 34 Mechanical Ventilator 100 06/23/20 22:00 98 34 140/86 (104) 95 06/23/20 21:00 97 31 123/73 (90) 98 06/23/20 21:00 31 Mechanical Ventilator 100 06/23/20 20:14 34 Mechanical Ventilator 100 06/23/20 20:00 100 06/23/20 20:00 99 06/23/20 20:00 34 Mechanical Ventilator 100 06/23/20 20:00 Mechanical Ventilator Mechanical Ventilator 06/23/20 20:00 97.0 97 34 132/75 (94) 96 06/23/20 19:10 95 32 100 06/23/20 19:00 34 Mechanical Ventilator 100 06/23/20 19:00 96 34 138/80 (99) 95 06/23/20 18:00 109 33 120/69 (86) 96 06/23/20 18:00 33 Mechanical Ventilator 100 06/23/20 17:36 98 33 100 06/23/20 17:00 109 33 120/69 (86) 96 06/23/20 17:00 33 Mechanical Ventilator 100 06/23/20 16:00 100 06/23/20 16:00 33 Mechanical Ventilator 100 06/23/20 16:00 109 33 120/69 (86) 96 06/23/20 16:00 98 06/23/20 16:00 Mechanical Ventilator Mechanical Ventilator 06/23/20 15:20 97 34 100 06/23/20 15:00 109 33 120/69 (86) 96 06/23/20 15:00 33 Mechanical Ventilator 100 06/23/20 14:00 34 Mechanical Ventilator 100 06/23/20 14:00 105 34 95 06/23/20 13:34 Mechanical Ventilator 100 06/23/20 13:30 109 33 120/69 (86) 96 06/23/20 13:23 117 30 100 06/23/20 13:00 106 37 111/70 (84) 97 06/23/20 13:00 106 37 111/70 (84) 97 06/23/20 12:30 106 32 103/71 (82) 97 06/23/20 12:00 106 33 96/58 (71) 97 06/23/20 12:00 100 06/23/20 12:00 98.0 106 33 96/58 (71) 97 06/23/20 12:00 Mechanical Ventilator Mechanical Ventilator 06/23/20 12:00 33 Mechanical Ventilator 100 06/23/20 12:00 98 06/23/20 11:30 105 30 100/66 (77) 96 06/23/20 11:26 115 29 100 06/23/20 11:00 29 Mechanical Ventilator 100 06/23/20 11:00 101 29 104/71 (82) 94 06/23/20 11:00 101 29 104/71 (82) 94 06/23/20 10:30 100 30 117/72 (87) 94 06/23/20 10:00 95 35 137/87 (104) 88 06/23/20 10:00 31 Mechanical Ventilator 100 06/23/20 10:00 101 31 113/85 (94) 93 06/23/20 10:00 101 31 93 06/23/20 09:30 98 31 122/81 (95) 94 06/23/20 09:30 98 31 122/81 (95) 94 06/23/20 09:22 110 32 100 06/23/20 09:00 98 35 135/79 (97) 88 06/23/20 09:00 98 35 135/79 (97) 88 06/23/20 09:00 35 Mechanical Ventilator 100 06/23/20 09:00 98 35 135/79 (97) 88 06/23/20 09:00 98 35 135/79 (97) 88 06/23/20 09:00 95 35 137/87 (104) 88 06/23/20 08:30 93 33 141/85 (103) 85 06/23/20 08:30 93 33 141/85 (103) 85 06/23/20 08:30 93 33 141/85 (103) 85 06/23/20 08:00 96 34 89 06/23/20 08:00 96 34 89 06/23/20 08:00 100 06/23/20 08:00 98 06/23/20 08:00 34 Mechanical Ventilator 100 06/23/20 08:00 97.6 98 34 130/85 (100) 95 06/23/20 08:00 96 34 141/92 (108) 89 06/23/20 08:00 96 34 141/92 (108) 89 06/23/20 08:00 Mechanical Ventilator Mechanical Ventilator 06/23/20 07:30 95 31 133/85 (101) 93 06/23/20 07:30 95 31 133/85 (101) 93 06/23/20 07:30 95 31 133/85 (101) 93 06/23/20 07:21 96 33 100 06/23/20 07:00 95 35 137/87 (104) 88 06/23/20 07:00 95 35 137/87 (104) 88 06/23/20 07:00 95 35 137/87 (104) 88 06/23/20 07:00 35 Mechanical Ventilator 100 06/23/20 07:00 95 35 137/87 (104) 88 06/23/20 06:30 96 32 06/23/20 06:30 95 33 144/82 (102) 92 06/23/20 06:30 95 33 144/82 (102) 92 06/23/20 06:00 96 34 131/87 (102) 92 06/23/20 06:00 96 34 131/87 (102) 92 06/23/20 06:00 34 Mechanical Ventilator 100 06/23/20 06:00 96 34 131/87 (102) 92 06/23/20 05:55 33 Mechanical Ventilator 100 06/23/20 05:30 95 35 141/87 (105) 90 06/23/20 05:30 95 35 141/87 (105) 90 06/23/20 05:18 90 34 100 06/23/20 05:00 95 33 138/86 (103) 90 06/23/20 05:00 95 33 138/86 (103) 90 06/23/20 05:00 33 Mechanical Ventilator 100 06/23/20 05:00 95 33 138/86 (103) 90 06/23/20 04:30 95 34 125/87 (100) 92 06/23/20 04:30 95 34 125/87 (100) 92 06/23/20 04:00 100 06/23/20 04:00 98 06/23/20 04:00 34 Mechanical Ventilator 100 06/23/20 04:00 Mechanical Ventilator Mechanical Ventilator 06/23/20 04:00 98 34 130/85 (100) 95 06/23/20 04:00 97.6 98 34 130/85 (100) 95 06/23/20 04:00 98 34 130/85 (100) 95 06/23/20 03:30 101 33 139/84 (102) 93 06/23/20 03:30 101 33 139/84 (102) 93 06/23/20 03:18 93 34 100 06/23/20 03:00 93 34 143/83 (103) 93 06/23/20 03:00 34 Mechanical Ventilator 100 06/23/20 03:00 93 34 143/83 (103) 93 06/23/20 03:00 93 34 143/83 (103) 93 06/23/20 02:30 93 33 129/86 (100) 96 06/23/20 02:30 93 33 129/86 (100) 96 06/23/20 02:00 95 33 128/84 (99) 95 06/23/20 02:00 95 33 128/84 (99) 95 06/23/20 02:00 33 Mechanical Ventilator 100 06/23/20 02:00 95 33 128/84 (99) 95 06/23/20 01:30 93 31 133/87 (102) 96 06/23/20 01:30 93 31 133/87 (102) 96 06/23/20 01:16 94 29 100 06/23/20 01:00 103 30 127/87 (100) 94 06/23/20 01:00 30 Mechanical Ventilator 100 06/23/20 01:00 103 30 127/87 (100) 94 06/23/20 01:00 103 30 127/87 (100) 94 06/23/20 00:30 93 30 133/87 (102) 97 06/23/20 00:30 93 30 133/87 (102) 97 06/23/20 00:00 95 30 125/81 (96) 97 06/23/20 00:00 Mechanical Ventilator Mechanical Ventilator 06/23/20 00:00 98.2 95 30 125/81 (96) 97 06/23/20 00:00 100 06/23/20 00:00 95 30 125/81 (96) 97 06/23/20 00:00 30 Mechanical Ventilator 100 06/22/20 23:14 94 31 100 06/22/20 23:01 24 Mechanical Ventilator 100 06/22/20 23:00 93 26 109/68 (82) 96 06/22/20 22:00 94 29 118/77 (91) 97 06/22/20 22:00 29 Mechanical Ventilator 100 06/22/20 21:06 99 30 100 06/22/20 21:00 28 Mechanical Ventilator 100 06/22/20 21:00 98 28 127/78 (94) 97 06/22/20 20:30 104 28 128/97 (107) 93 06/22/20 20:00 Mechanical Ventilator Mechanical Ventilator 06/22/20 20:00 30 Mechanical Ventilator 100 06/22/20 20:00 98.1 97 30 131/83 (99) 96 06/22/20 20:00 97 06/22/20 20:00 100 06/22/20 19:15 94 30 100 06/22/20 19:00 33 Mechanical Ventilator 100 06/22/20 19:00 93 33 122/86 (98) 95 06/22/20 18:00 93 35 126/86 (99) 95 06/22/20 18:00 35 Mechanical Ventilator 100 06/22/20 17:45 93 36 122/80 (94) 93 06/22/20 17:30 94 36 129/80 (96) 94 06/22/20 17:15 94 33 130/82 (98) 95 06/22/20 17:00 33 Mechanical Ventilator 100 06/22/20 17:00 94 33 132/83 (99) 96 06/22/20 16:45 30 Mechanical Ventilator 100 06/22/20 16:45 93 30 118/83 (95) 96 06/22/20 16:41 102 38 100 06/22/20 16:20 30 Mechanical Ventilator 100 06/22/20 16:00 98.5 90 22 120/79 (93) 96 06/22/20 16:00 Mechanical Ventilator Mechanical Ventilator 06/22/20 16:00 22 Mechanical Ventilator 100 06/22/20 16:00 100 06/22/20 15:39 95 06/22/20 15:26 99 38 100 06/22/20 15:00 101 33 125/78 (94) 93 06/22/20 15:00 33 Mechanical Ventilator 100 06/22/20 14:00 98 24 103/69 (80) 96 06/22/20 14:00 24 Mechanical Ventilator 100 06/22/20 13:19 96 30 100 06/22/20 13:00 98.0 88 28 104/68 (80) 93 06/22/20 13:00 28 Mechanical Ventilator 100 06/22/20 12:00 90 31 135/91 (106) 77 06/22/20 12:00 31 Mechanical Ventilator 100 06/22/20 12:00 100 06/22/20 12:00 Mechanical Ventilator Mechanical Ventilator 06/22/20 11:34 86 06/22/20 11:19 91 32 100 06/22/20 11:00 29 Mechanical Ventilator 100 06/22/20 11:00 92 29 106/72 (83) 94 06/22/20 10:45 93 29 108/71 (83) 95 06/22/20 10:30 93 29 105/72 (83) 94 06/22/20 10:15 91 28 110/70 (83) 94 06/22/20 10:00 92 33 119/77 (91) 91 06/22/20 10:00 28 Mechanical Ventilator 100 06/22/20 09:45 28 Mechanical Ventilator 100 06/22/20 09:45 87 28 111/84 (93) 91 06/22/20 09:34 96 31 100 06/22/20 09:30 93 33 128/86 (100) 83 06/22/20 09:17 35 Mechanical Ventilator 100 06/22/20 09:00 33 Mechanical Ventilator 100 06/22/20 09:00 95 35 131/87 (102) 78 06/22/20 08:45 90 34 136/82 (100) 80 06/22/20 08:30 98 35 129/81 (97) 79 06/22/20 08:15 94 34 125/85 (98) 80 06/22/20 08:00 Mechanical Ventilator Mechanical Ventilator 06/22/20 08:00 100 06/22/20 08:00 33 Mechanical Ventilator 100 06/22/20 08:00 92 33 133/78 (96) 87 06/22/20 07:45 29 Mechanical Ventilator 100 06/22/20 07:45 97.8 90 29 125/81 (96) 92 Intake and Output 06/23/20 06/24/20 19:00 07:00 Intake Total 330.5 ml 602.5 ml Output Total 2860 ml 780 ml Balance -2529.5 ml -177.5 ml IV Total 330.5 ml 352.5 ml Blood Product 250 ml Output Urine Total 2860 ml 680 ml Stool Total 100 ml Labs Test 06/21/20 12:28 06/21/20 17:55 06/21/20 23:11 06/22/20 03:40 POC Whole Blood Glucose 129 MG/DL (74-106) White Blood Count 9.0 K/UL (4.8-10.8) Red Blood Count 2.67 M/UL (4.20-5.40) Hemoglobin 8.0 G/DL (12.0-16.0) Hematocrit 24.8 % (37.0-47.0) Mean Corpuscular Volume 93 FL (80-99) Mean Corpuscular Hemoglobin 30.1 PG (27.0-31.0) Mean Corpuscular Hemoglobin Concent 32.4 G/DL (32.0-36.0) Red Cell Distribution Width 16.5 % (11.6-14.8) Platelet Count 190 K/UL (150-450) Mean Platelet Volume 8.0 FL (6.5-10.1) Neutrophils (%) (Auto) 73.6 % (45.0-75.0) Lymphocytes (%) (Auto) 15.4 % (20.0-45.0) Monocytes (%) (Auto) 1.8 % (1.0-10.0) Eosinophils (%) (Auto) 8.7 % (0.0-3.0) Basophils (%) (Auto) 0.4 % (0.0-2.0) Sodium Level 143 MMOL/L (136-145) Potassium Level 3.3 MMOL/L (3.5-5.1) Chloride Level 102 MMOL/L (98-107) Carbon Dioxide Level 38 MMOL/L (21-32) Anion Gap 3 mmol/L (5-15) Blood Urea Nitrogen 26 mg/dL (7-18) Creatinine 0.5 MG/DL (0.55-1.30) Estimat Glomerular Filtration Rate > 60 mL/min (>60) Glucose Level 98 MG/DL (74-106) Uric Acid 2.1 MG/DL (2.6-7.2) Calcium Level 8.6 MG/DL (8.5-10.1) Phosphorus Level 2.6 MG/DL (2.5-4.9) Magnesium Level 1.8 MG/DL (1.8-2.4) Total Bilirubin 0.9 MG/DL (0.2-1.0) Aspartate Amino Transf (AST/SGOT) 30 U/L (15-37) Alanine Aminotransferase (ALT/SGPT) 21 U/L (12-78) Alkaline Phosphatase 72 U/L (46-116) C-Reactive Protein, Quantitative 28.8 mg/dL (0.00-0.90) Pro-B-Type Natriuretic Peptide 3167 pg/mL (0-125) Total Protein 6.2 G/DL (6.4-8.2) Albumin 1.7 G/DL (3.4-5.0) Globulin 4.5 g/dL Albumin/Globulin Ratio 0.4 (1.0-2.7) Test 06/22/20 05:20 06/22/20 07:35 06/22/20 11:37 06/23/20 05:31 POC Whole Blood Glucose 109 MG/DL (74-106) 130 MG/DL (74-106) Arterial Blood pH 7.469 (7.350-7.450) Arterial Blood Partial Pressure CO2 54.6 mmHg (35.0-45.0) Arterial Blood Partial Pressure O2 46.7 mmHg (75.0-100.0) Arterial Blood HCO3 38.8 mmol/L (22.0-26.0) Arterial Blood Oxygen Saturation 82.8 % (95-100) Arterial Blood Base Excess 13.4 (-2-2) Jeremiah Test Positive White Blood Count 7.7 K/UL (4.8-10.8) Red Blood Count 3.09 M/UL (4.20-5.40) Hemoglobin 9.0 G/DL (12.0-16.0) Hematocrit 28.2 % (37.0-47.0) Mean Corpuscular Volume 92 FL (80-99) Mean Corpuscular Hemoglobin 29.1 PG (27.0-31.0) Mean Corpuscular Hemoglobin Concent 31.8 G/DL (32.0-36.0) Red Cell Distribution Width 16.2 % (11.6-14.8) Platelet Count 212 K/UL (150-450) Mean Platelet Volume 7.4 FL (6.5-10.1) Neutrophils (%) (Auto) 75.1 % (45.0-75.0) Lymphocytes (%) (Auto) 9.6 % (20.0-45.0) Monocytes (%) (Auto) 5.4 % (1.0-10.0) Eosinophils (%) (Auto) 7.8 % (0.0-3.0) Basophils (%) (Auto) 2.2 % (0.0-2.0) Sodium Level 142 MMOL/L (136-145) Potassium Level 3.7 MMOL/L (3.5-5.1) Chloride Level 101 MMOL/L (98-107) Carbon Dioxide Level 34 MMOL/L (21-32) Anion Gap 7 mmol/L (5-15) Blood Urea Nitrogen 23 mg/dL (7-18) Creatinine 0.5 MG/DL (0.55-1.30) Estimat Glomerular Filtration Rate > 60 mL/min (>60) Glucose Level 102 MG/DL (74-106) Calcium Level 8.8 MG/DL (8.5-10.1) Phosphorus Level 3.8 MG/DL (2.5-4.9) Magnesium Level 1.8 MG/DL (1.8-2.4) Total Bilirubin 1.2 MG/DL (0.2-1.0) Direct Bilirubin 0.2 MG/DL (0.0-0.3) Aspartate Amino Transf (AST/SGOT) 32 U/L (15-37) Alanine Aminotransferase (ALT/SGPT) 18 U/L (12-78) Alkaline Phosphatase 84 U/L (46-116) C-Reactive Protein, Quantitative 21.3 mg/dL (0.00-0.90) Pro-B-Type Natriuretic Peptide 1376 pg/mL (0-125) Total Protein 6.7 G/DL (6.4-8.2) Albumin 1.9 G/DL (3.4-5.0) Globulin 4.8 g/dL Albumin/Globulin Ratio 0.4 (1.0-2.7) Test 06/23/20 08:13 06/23/20 12:16 06/24/20 05:34 06/24/20 07:20 Arterial Blood pH 7.444 (7.350-7.450) 7.425 (7.350-7.450) Arterial Blood Partial Pressure CO2 51.2 mmHg (35.0-45.0) 56.7 mmHg (35.0-45.0) Arterial Blood Partial Pressure O2 49.8 mmHg (75.0-100.0) 70.9 mmHg (75.0-100.0) Arterial Blood HCO3 34.3 mmol/L (22.0-26.0) 36.4 mmol/L (22.0-26.0) Arterial Blood Oxygen Saturation 82.3 % (95-100) 92.7 % (95-100) Arterial Blood Base Excess 9.0 (-2-2) 10.5 (-2-2) Jeremiah Test Positive Positive POC Whole Blood Glucose 117 MG/DL (74-106) White Blood Count 5.9 K/UL (4.8-10.8) Red Blood Count 3.46 M/UL (4.20-5.40) Hemoglobin 9.9 G/DL (12.0-16.0) Hematocrit 31.9 % (37.0-47.0) Mean Corpuscular Volume 92 FL (80-99) Mean Corpuscular Hemoglobin 28.7 PG (27.0-31.0) Mean Corpuscular Hemoglobin Concent 31.1 G/DL (32.0-36.0) Red Cell Distribution Width 16.5 % (11.6-14.8) Platelet Count 211 K/UL (150-450) Mean Platelet Volume 7.7 FL (6.5-10.1) Neutrophils (%) (Auto) 73.7 % (45.0-75.0) Lymphocytes (%) (Auto) 14.1 % (20.0-45.0) Monocytes (%) (Auto) 3.8 % (1.0-10.0) Eosinophils (%) (Auto) 7.4 % (0.0-3.0) Basophils (%) (Auto) 1.0 % (0.0-2.0) Sodium Level 143 MMOL/L (136-145) Potassium Level 3.8 MMOL/L (3.5-5.1) Chloride Level 102 MMOL/L (98-107) Carbon Dioxide Level 36 MMOL/L (21-32) Anion Gap 5 mmol/L (5-15) Blood Urea Nitrogen 26 mg/dL (7-18) Creatinine 0.6 MG/DL (0.55-1.30) Estimat Glomerular Filtration Rate > 60 mL/min (>60) Glucose Level 100 MG/DL (74-106) Calcium Level 9.3 MG/DL (8.5-10.1) Phosphorus Level 3.7 MG/DL (2.5-4.9) Magnesium Level 1.8 MG/DL (1.8-2.4) Total Bilirubin 1.4 MG/DL (0.2-1.0) Direct Bilirubin 0.2 MG/DL (0.0-0.3) Aspartate Amino Transf (AST/SGOT) 31 U/L (15-37) Alanine Aminotransferase (ALT/SGPT) 20 U/L (12-78) Alkaline Phosphatase 80 U/L (46-116) Total Protein 7.0 G/DL (6.4-8.2) Albumin 2.0 G/DL (3.4-5.0) Globulin 5.0 g/dL Albumin/Globulin Ratio 0.4 (1.0-2.7) Height (Feet): 5 Height (Inches): 5.00 Weight (Pounds): 308 Objective GeNL: nv Pulm: vent++ CV: rrr Abd: soft, nt, nd Ext: no nane Myron Condon MD Jun 24, 2020 07:44
[2020-06-24] MEDS: Pantoprazole Inj IVP SCH ×2 (08:41→20:43)
[2020-06-24] MEDS: Docusate 100mg/10ml Liq GT SCH ×2 (08:41→21:07)
[2020-06-24] MEDS: Enoxaparin 40mg Inj SUBQ SCH (08:42)
--- NOTE | 2020-06-24 09:20 | General Progress Note ---
Subjective Constitutional: Reports: weakness Allergies: Coded Allergies: No Known Allergies (Unverified , 05/28/20) All Systems: reviewed and negative except above Subjective intubated sedated ng in icu Objective Last 24 Hour Vital Signs Date Time Temp Pulse Resp B/P (MAP) Pulse Ox O2 Delivery O2 Flow Rate FiO2 06/24/20 09:15 90 27 100 06/24/20 08:30 92 14 103/58 (73) 97 06/24/20 08:00 93 24 104/61 (75) 98 06/24/20 08:00 100 06/24/20 07:17 95 27 100 06/24/20 07:00 93 19 97/58 (71) 98 06/24/20 07:00 19 Mechanical Ventilator 100 06/24/20 06:30 94 22 108/69 (82) 100 06/24/20 06:30 94 22 06/24/20 06:00 30 Mechanical Ventilator 100 06/24/20 06:00 105 30 109/66 (80) 100 06/24/20 05:00 30 Mechanical Ventilator 100 06/24/20 05:00 108 30 116/74 (88) 100 06/24/20 04:00 98.0 110 31 110/63 (79) 99 06/24/20 04:00 109 06/24/20 04:00 31 Mechanical Ventilator 100 06/24/20 04:00 Mechanical Ventilator Mechanical Ventilator 06/24/20 04:00 100 06/24/20 03:20 95 32 100 06/24/20 03:00 29 Mechanical Ventilator 100 06/24/20 03:00 98 29 108/69 (82) 100 06/24/20 02:31 23 Mechanical Ventilator 100 06/24/20 02:30 23 Mechanical Ventilator 100 06/24/20 02:00 98 31 114/75 (88) 98 06/24/20 02:00 31 Mechanical Ventilator 100 06/24/20 01:00 30 Mechanical Ventilator 100 06/24/20 01:00 100 30 111/78 (89) 99 06/24/20 00:00 Mechanical Ventilator Mechanical Ventilator 06/24/20 00:00 97.0 97 32 125/83 (97) 98 06/24/20 00:00 32 Mechanical Ventilator 100 06/24/20 00:00 97 06/24/20 00:00 100 06/23/20 23:20 95 32 100 06/23/20 23:00 97 33 139/79 (99) 95 06/23/20 23:00 33 Mechanical Ventilator 100 06/23/20 22:00 34 Mechanical Ventilator 100 06/23/20 22:00 98 34 140/86 (104) 95 06/23/20 21:00 97 31 123/73 (90) 98 06/23/20 21:00 31 Mechanical Ventilator 100 06/23/20 20:14 34 Mechanical Ventilator 100 06/23/20 20:00 100 06/23/20 20:00 99 06/23/20 20:00 34 Mechanical Ventilator 100 06/23/20 20:00 Mechanical Ventilator Mechanical Ventilator 06/23/20 20:00 97.0 97 34 132/75 (94) 96 06/23/20 19:10 95 32 100 06/23/20 19:00 34 Mechanical Ventilator 100 06/23/20 19:00 96 34 138/80 (99) 95 06/23/20 18:00 109 33 120/69 (86) 96 06/23/20 18:00 33 Mechanical Ventilator 100 06/23/20 17:36 98 33 100 06/23/20 17:00 109 33 120/69 (86) 96 06/23/20 17:00 33 Mechanical Ventilator 100 06/23/20 16:00 100 06/23/20 16:00 33 Mechanical Ventilator 100 06/23/20 16:00 109 33 120/69 (86) 96 06/23/20 16:00 98 06/23/20 16:00 Mechanical Ventilator Mechanical Ventilator 06/23/20 15:20 97 34 100 06/23/20 15:00 109 33 120/69 (86) 96 06/23/20 15:00 33 Mechanical Ventilator 100 06/23/20 14:00 34 Mechanical Ventilator 100 06/23/20 14:00 105 34 95 06/23/20 13:34 Mechanical Ventilator 100 06/23/20 13:30 109 33 120/69 (86) 96 06/23/20 13:23 117 30 100 06/23/20 13:00 106 37 111/70 (84) 97 06/23/20 13:00 106 37 111/70 (84) 97 06/23/20 12:30 106 32 103/71 (82) 97 06/23/20 12:00 106 33 96/58 (71) 97 06/23/20 12:00 100 06/23/20 12:00 98.0 106 33 96/58 (71) 97 06/23/20 12:00 Mechanical Ventilator Mechanical Ventilator 06/23/20 12:00 33 Mechanical Ventilator 100 06/23/20 12:00 98 06/23/20 11:30 105 30 100/66 (77) 96 06/23/20 11:26 115 29 100 06/23/20 11:00 29 Mechanical Ventilator 100 06/23/20 11:00 101 29 104/71 (82) 94 06/23/20 11:00 101 29 104/71 (82) 94 06/23/20 10:30 100 30 117/72 (87) 94 06/23/20 10:00 95 35 137/87 (104) 88 06/23/20 10:00 31 Mechanical Ventilator 100 06/23/20 10:00 101 31 113/85 (94) 93 06/23/20 10:00 101 31 93 06/23/20 09:30 98 31 122/81 (95) 94 06/23/20 09:30 98 31 122/81 (95) 94 06/23/20 09:22 110 32 100 Intake and Output 06/23/20 06/24/20 19:00 07:00 Intake Total 330.5 ml 602.5 ml Output Total 2860 ml 780 ml Balance -2529.5 ml -177.5 ml IV Total 330.5 ml 352.5 ml Blood Product 250 ml Output Urine Total 2860 ml 680 ml Stool Total 100 ml Laboratory Tests 06/23/20 12:16: POC Whole Blood Glucose 117H 06/24/20 05:34: White Blood Count 5.9, Red Blood Count 3.46L, Hemoglobin 9.9L, Hematocrit 31.9L, Mean Corpuscular Volume 92, Mean Corpuscular Hemoglobin 28.7, Mean Corpuscular Hemoglobin Concent 31.1L, Red Cell Distribution Width 16.5H, Platelet Count 211, Mean Platelet Volume 7.7, Neutrophils (%) (Auto) 73.7, Lymphocytes (%) (Auto) 14.1L, Monocytes (%) (Auto) 3.8, Eosinophils (%) (Auto) 7.4H, Basophils (%) (Auto) 1.0, Sodium Level 143, Potassium Level 3.8, Chloride Level 102, Carbon Dioxide Level 36H, Anion Gap 5, Blood Urea Nitrogen 26H, Creatinine 0.6, Estimat Glomerular Filtration Rate > 60, Glucose Level 100, Calcium Level 9.3, Phosphorus Level 3.7, Magnesium Level 1.8, Total Bilirubin 1.4H, Direct Bilirubin 0.2, Aspartate Amino Transf (AST/SGOT) 31, Alanine Aminotransferase (ALT/SGPT) 20, Alkaline Phosphatase 80, Total Protein 7.0, Albumin 2.0L, Globulin 5.0, Albumin/Globulin Ratio 0.4L 06/24/20 07:20: Arterial Blood pH 7.425, Arterial Blood Partial Pressure CO2 56.7*H, Arterial Blood Partial Pressure O2 70.9L, Arterial Blood HCO3 36.4H, Arterial Blood Oxygen Saturation 92.7L, Arterial Blood Base Excess 10.5*H, Jeremiah Test Positive Height (Feet): 5 Height (Inches): 5.00 Weight (Pounds): 308 General Appearance: lethargic EENT: normal ENT inspection Neck: normal alignment Cardiovascular: normal peripheral pulses, normal rate, regular rhythm Respiratory/Chest: chest wall non-tender, lungs clear, normal breath sounds Abdomen: normal bowel sounds, non tender, soft Extremities: normal inspection Edema: no edema noted Arm (L), no edema noted Arm (R), no edema noted Leg (L), no edema noted Leg (R), no edema noted Pedal (L), no edema noted Pedal (R), no edema noted Generalized Neurologic: motor weakness Skin: normal pigmentation, warm/dry Assessment/Plan Problem List: (1) Hypoxia ICD Codes: R09.02 - Hypoxemia SNOMED: 104107672 (2) Respiratory failure ICD Codes: J96.90 - Respiratory failure, unspecified, unspecified whether with hypoxia or hypercapnia SNOMED: 480691909 (3) Respiratory distress ICD Codes: R06.03 - Acute respiratory distress; J12.82 - Pneumonia due to coronavirus disease 2019 SNOMED: 613950115 (4) Pneumonia due to COVID-19 virus ICD Codes: U07.1 - COVID-19; J12.82 - Pneumonia due to coronavirus disease 2019 SNOMED: [id number] Status: unchanged Assessment/Plan: vent abx id pulm f/u cbc bmp am Tank Del Cid DO Jun 24, 2020 09:20
--- NOTE | 2020-06-24 10:13 | NUR ---
CASE MANAGEMENT:REVIEW 06/24/20 SI: COVID PNA ACUTE RESPIRATORY FAILURE~ INTUBATED 98.0 90 27 97/58 98% ON VENT W/100% FIO2 H/H-9.9/31.9 CO2+36 BUN+26 IS: VERSE GTT IV LASIX QD IV PROTONIX Q12 LOVENOX SQ QD MIDODRINE PO Q8HRS : ICU STATUS DCP: FROM HOME
--- NOTE | 2020-06-24 10:57 | Infectious Diseases Prog Note ---
Assessment/Plan Assessment/Plan antibiotics : none A 1. covid 19 pneumonia on 100 % Fi O2 with 94 % saturation s/p remdesivir s/p solumedrol 2. respiratory failure 3. serratia pneumonia P 1. continue off antibiotics 2. continue isolation Subjective ROS Limited/Unobtainable: Yes Allergies: Coded Allergies: No Known Allergies (Unverified , 05/28/20) Objective Last 24 Hour Vital Signs Date Time Temp Pulse Resp B/P (MAP) Pulse Ox O2 Delivery O2 Flow Rate FiO2 06/24/20 09:21 Mechanical Ventilator 06/24/20 09:15 90 27 100 06/24/20 08:30 92 14 103/58 (73) 97 06/24/20 08:00 93 24 104/61 (75) 98 06/24/20 08:00 100 06/24/20 07:17 95 27 100 06/24/20 07:00 93 19 97/58 (71) 98 06/24/20 07:00 19 Mechanical Ventilator 100 06/24/20 06:30 94 22 108/69 (82) 100 06/24/20 06:30 94 22 06/24/20 06:00 30 Mechanical Ventilator 100 06/24/20 06:00 105 30 109/66 (80) 100 06/24/20 05:00 30 Mechanical Ventilator 100 06/24/20 05:00 108 30 116/74 (88) 100 06/24/20 04:00 98.0 110 31 110/63 (79) 99 06/24/20 04:00 109 06/24/20 04:00 31 Mechanical Ventilator 100 06/24/20 04:00 Mechanical Ventilator Mechanical Ventilator 06/24/20 04:00 100 06/24/20 03:20 95 32 100 06/24/20 03:00 29 Mechanical Ventilator 100 06/24/20 03:00 98 29 108/69 (82) 100 06/24/20 02:31 23 Mechanical Ventilator 100 06/24/20 02:30 23 Mechanical Ventilator 100 06/24/20 02:00 98 31 114/75 (88) 98 06/24/20 02:00 31 Mechanical Ventilator 100 06/24/20 01:00 30 Mechanical Ventilator 100 06/24/20 01:00 100 30 111/78 (89) 99 06/24/20 00:00 Mechanical Ventilator Mechanical Ventilator 06/24/20 00:00 97.0 97 32 125/83 (97) 98 06/24/20 00:00 32 Mechanical Ventilator 100 06/24/20 00:00 97 06/24/20 00:00 100 06/23/20 23:20 95 32 100 06/23/20 23:00 97 33 139/79 (99) 95 06/23/20 23:00 33 Mechanical Ventilator 100 06/23/20 22:00 34 Mechanical Ventilator 100 06/23/20 22:00 98 34 140/86 (104) 95 06/23/20 21:00 97 31 123/73 (90) 98 06/23/20 21:00 31 Mechanical Ventilator 100 06/23/20 20:14 34 Mechanical Ventilator 100 06/23/20 20:00 100 06/23/20 20:00 99 06/23/20 20:00 34 Mechanical Ventilator 100 06/23/20 20:00 Mechanical Ventilator Mechanical Ventilator 06/23/20 20:00 97.0 97 34 132/75 (94) 96 06/23/20 19:10 95 32 100 06/23/20 19:00 34 Mechanical Ventilator 100 06/23/20 19:00 96 34 138/80 (99) 95 06/23/20 18:00 109 33 120/69 (86) 96 06/23/20 18:00 33 Mechanical Ventilator 100 06/23/20 17:36 98 33 100 06/23/20 17:00 109 33 120/69 (86) 96 06/23/20 17:00 33 Mechanical Ventilator 100 06/23/20 16:00 100 06/23/20 16:00 33 Mechanical Ventilator 100 06/23/20 16:00 109 33 120/69 (86) 96 06/23/20 16:00 98 06/23/20 16:00 Mechanical Ventilator Mechanical Ventilator 06/23/20 15:20 97 34 100 06/23/20 15:00 109 33 120/69 (86) 96 06/23/20 15:00 33 Mechanical Ventilator 100 06/23/20 14:00 34 Mechanical Ventilator 100 06/23/20 14:00 105 34 95 06/23/20 13:34 Mechanical Ventilator 100 06/23/20 13:30 109 33 120/69 (86) 96 06/23/20 13:23 117 30 100 06/23/20 13:00 106 37 111/70 (84) 97 06/23/20 13:00 106 37 111/70 (84) 97 06/23/20 12:30 106 32 103/71 (82) 97 06/23/20 12:00 106 33 96/58 (71) 97 06/23/20 12:00 100 06/23/20 12:00 98.0 106 33 96/58 (71) 97 06/23/20 12:00 Mechanical Ventilator Mechanical Ventilator 06/23/20 12:00 33 Mechanical Ventilator 100 06/23/20 12:00 98 06/23/20 11:30 105 30 100/66 (77) 96 06/23/20 11:26 115 29 100 06/23/20 11:00 29 Mechanical Ventilator 100 06/23/20 11:00 101 29 104/71 (82) 94 06/23/20 11:00 101 29 104/71 (82) 94 Height (Feet): 5 Height (Inches): 5.00 Weight (Pounds): 308 HEENT: other - intubated Laboratory Tests Test 06/23/20 12:16 06/23/20 18:27 06/23/20 23:55 06/24/20 05:34 POC Whole Blood Glucose 117 MG/DL (74-106) H 114 MG/DL (74-106) H 115 MG/DL (74-106) H White Blood Count 5.9 K/UL (4.8-10.8) Red Blood Count 3.46 M/UL (4.20-5.40) L Hemoglobin 9.9 G/DL (12.0-16.0) L Hematocrit 31.9 % (37.0-47.0) L Mean Corpuscular Volume 92 FL (80-99) Mean Corpuscular Hemoglobin 28.7 PG (27.0-31.0) Mean Corpuscular Hemoglobin Concent 31.1 G/DL (32.0-36.0) L Red Cell Distribution Width 16.5 % (11.6-14.8) H Platelet Count 211 K/UL (150-450) Mean Platelet Volume 7.7 FL (6.5-10.1) Neutrophils (%) (Auto) 73.7 % (45.0-75.0) Lymphocytes (%) (Auto) 14.1 % (20.0-45.0) L Monocytes (%) (Auto) 3.8 % (1.0-10.0) Eosinophils (%) (Auto) 7.4 % (0.0-3.0) H Basophils (%) (Auto) 1.0 % (0.0-2.0) Sodium Level 143 MMOL/L (136-145) Potassium Level 3.8 MMOL/L (3.5-5.1) Chloride Level 102 MMOL/L (98-107) Carbon Dioxide Level 36 MMOL/L (21-32) H Anion Gap 5 mmol/L (5-15) Blood Urea Nitrogen 26 mg/dL (7-18) H Creatinine 0.6 MG/DL (0.55-1.30) Estimat Glomerular Filtration Rate > 60 mL/min (>60) Glucose Level 100 MG/DL (74-106) Calcium Level 9.3 MG/DL (8.5-10.1) Phosphorus Level 3.7 MG/DL (2.5-4.9) Magnesium Level 1.8 MG/DL (1.8-2.4) Total Bilirubin 1.4 MG/DL (0.2-1.0) H Direct Bilirubin 0.2 MG/DL (0.0-0.3) Aspartate Amino Transf (AST/SGOT) 31 U/L (15-37) Alanine Aminotransferase (ALT/SGPT) 20 U/L (12-78) Alkaline Phosphatase 80 U/L (46-116) Total Protein 7.0 G/DL (6.4-8.2) Albumin 2.0 G/DL (3.4-5.0) L Globulin 5.0 g/dL Albumin/Globulin Ratio 0.4 (1.0-2.7) L Test 06/24/20 05:59 06/24/20 07:20 POC Whole Blood Glucose 97 MG/DL (74-106) Arterial Blood pH 7.425 (7.350-7.450) Arterial Blood Partial Pressure CO2 56.7 mmHg (35.0-45.0) *H Arterial Blood Partial Pressure O2 70.9 mmHg (75.0-100.0) L Arterial Blood HCO3 36.4 mmol/L (22.0-26.0) H Arterial Blood Oxygen Saturation 92.7 % (95-100) L Arterial Blood Base Excess 10.5 (-2-2) *H Jeremiah Test Positive Current Medications Medications (Trade) Dose Ordered Sig/Zelda Route PRN Reason Start Time Stop Time Status Last Admin Dose Admin Acetaminophen (Tylenol) 650 mg Q4H PRN NG Temp >100.5 05/31/20 21:45 06/30/20 21:44 06/21/20 12:19 Acetaminophen (Tylenol) 650 mg Q6H PRN NG Mild Pain (Pain Scale 1-3) 06/06/20 18:00 07/06/20 17:59 06/13/20 23:10 Chlorhexidine Gluconate (Inna-Hex 2%) 1 applic DAILY@2000 TOPIC 05/30/20 20:00 08/28/20 19:59 06/23/20 20:00 Dextrose (Dextrose 50%) 25 ml Q30M PRN IV Hypoglycemia 06/05/20 10:45 09/03/20 10:44 Dextrose (Dextrose 50%) 50 ml Q30M PRN IV Hypoglycemia 06/05/20 10:45 09/03/20 10:44 Docusate Sodium (Colace) 100 mg Q12HR GT 06/07/20 21:00 07/07/20 20:59 06/23/20 08:49 Enoxaparin Sodium (Lovenox) 40 mg DAILY SUBQ 05/30/20 10:00 08/28/20 09:59 06/24/20 08:42 Furosemide (Lasix) 40 mg DAILY IV 06/22/20 09:00 07/22/20 08:59 06/24/20 08:41 Insulin Aspart (NovoLOG) EVERY 6 HOURS SUBQ 06/07/20 00:00 09/03/20 11:59 06/21/20 12:00 Midazolam HCl 100 mg/Sodium Chloride 200 ml @ 0 mls/hr Q24H PRN IV sedation 06/23/20 12:00 06/25/20 11:59 06/24/20 09:21 Midodrine (Pro-Amatine) 10 mg Q8HR ORAL 06/14/20 14:00 09/12/20 13:59 06/24/20 05:54 Pantoprazole (Protonix) 40 mg Q12HR IVP 06/13/20 21:00 07/03/20 08:59 06/24/20 08:41 Polyethylene Glycol (Miralax) 17 gm BEDTIME GT 06/07/20 21:00 07/07/20 20:59 06/17/20 21:02 Fili Mcelroy MD Jun 24, 2020 10:57
--- NOTE | 2020-06-24 12:12 | NUR ---
NURSE NOTES: MD. SON HERE TO SEE PT. WAS INFORMED LABS WNL. ON SEDATION, POSSIBLE TRACH IN FUTURE. WILL CONTINUE TO MONITOR.
--- NOTE | 2020-06-24 12:39 | Nephrology Progress Note ---
Assessment/Plan Problem List: (1) DEVENDRA (acute kidney injury) (2) Morbid obesity (3) Diabetes mellitus out of control (4) Pneumonia due to COVID-19 virus (5) Respiratory failure Assessment Acute renal failure Obstructive uropathy, clogged Lennon Respiratory failure COVID-19 pneumonia Morbid obesity Plan June 24: Labs reviewed. Renal parameters stable. Remains full code. Remains intubated on ventilator. Continue per consultants. June 23: Labs reviewed. Renal parameters stable. Discussed with RN. Abnormal electrolyte addressed. Remains full code. Remains on ventilator. Continue per consultants. June 22: Labs reviewed. Low potassium addressed. Discussed with RAKEL Moran. Patient full code. Remains on ventilator. Continue to monitor renal parameters. June 21. Labs reviewed. Abnormal electrolyte addressed. Full code. Remains on ventilator. Medication list reviewed. Continue per pulmonary management. DC IV fluid, resume Lasix daily, check chest x-ray. June 20: Labs reviewed. Abnormal electrolytes. Patient remains full code. Continue per consultants. Noted and addressed June 19: Labs reviewed. Abnormal electrolytes noted and addressed. Remains intubated on ventilator. Remains full code. June 18: Labs reviewed. Remains intubated on ventilator. Full code. Abnormal electrolyte addressed. Continue as is. June 17: Labs reviewed. Abnormal electrolytes addressed. Patient remains full code and intubated on ventilator. Continue per consultants. Renal parameters are within normal limits. June 16: Labs reviewed. Potassium chloride replaced. Remains full code. Remains intubated on ventilator. Continue per consultants. Continue to monitor renal parameters. June 15: Labs reviewed. Serum creatinine 1. Stable from renal standpoint to view. Continue per consultants. June 14: Labs reviewed. Full code. Serum creatinine of 3.5 down to 1.4. Low potassium addressed. Continue per current treatment plan. Continue to monitor renal parameters. Midodrine started. Albumin bolus given. Previously: DC Lasix drip Increase Protonix dose Monitor renal parameters, electrolytes Per orders Subjective ROS Limited/Unobtainable: Yes Objective Objective Last 24 Hour Vital Signs Date Time Temp Pulse Resp B/P (MAP) Pulse Ox O2 Delivery O2 Flow Rate FiO2 06/24/20 12:00 Mechanical Ventilator Mechanical Ventilator 06/24/20 11:02 89 22 100 06/24/20 09:21 Mechanical Ventilator 06/24/20 09:15 90 27 100 06/24/20 08:30 92 14 103/58 (73) 97 06/24/20 08:00 93 24 104/61 (75) 98 06/24/20 08:00 100 06/24/20 08:00 Mechanical Ventilator Mechanical Ventilator 06/24/20 08:00 95 06/24/20 07:17 95 27 100 06/24/20 07:00 93 19 97/58 (71) 98 06/24/20 07:00 19 Mechanical Ventilator 100 06/24/20 06:30 94 22 108/69 (82) 100 06/24/20 06:30 94 22 06/24/20 06:00 30 Mechanical Ventilator 100 06/24/20 06:00 105 30 109/66 (80) 100 06/24/20 05:00 30 Mechanical Ventilator 100 06/24/20 05:00 108 30 116/74 (88) 100 06/24/20 04:00 98.0 110 31 110/63 (79) 99 06/24/20 04:00 109 06/24/20 04:00 31 Mechanical Ventilator 100 06/24/20 04:00 Mechanical Ventilator Mechanical Ventilator 06/24/20 04:00 100 06/24/20 03:20 95 32 100 06/24/20 03:00 29 Mechanical Ventilator 100 06/24/20 03:00 98 29 108/69 (82) 100 06/24/20 02:31 23 Mechanical Ventilator 100 06/24/20 02:30 23 Mechanical Ventilator 100 06/24/20 02:00 98 31 114/75 (88) 98 06/24/20 02:00 31 Mechanical Ventilator 100 06/24/20 01:00 30 Mechanical Ventilator 100 06/24/20 01:00 100 30 111/78 (89) 99 06/24/20 00:00 Mechanical Ventilator Mechanical Ventilator 06/24/20 00:00 97.0 97 32 125/83 (97) 98 06/24/20 00:00 32 Mechanical Ventilator 100 06/24/20 00:00 97 06/24/20 00:00 100 06/23/20 23:20 95 32 100 06/23/20 23:00 97 33 139/79 (99) 95 06/23/20 23:00 33 Mechanical Ventilator 100 06/23/20 22:00 34 Mechanical Ventilator 100 06/23/20 22:00 98 34 140/86 (104) 95 06/23/20 21:00 97 31 123/73 (90) 98 06/23/20 21:00 31 Mechanical Ventilator 100 06/23/20 20:14 34 Mechanical Ventilator 100 06/23/20 20:00 100 06/23/20 20:00 99 06/23/20 20:00 34 Mechanical Ventilator 100 06/23/20 20:00 Mechanical Ventilator Mechanical Ventilator 06/23/20 20:00 97.0 97 34 132/75 (94) 96 06/23/20 19:10 95 32 100 06/23/20 19:00 34 Mechanical Ventilator 100 06/23/20 19:00 96 34 138/80 (99) 95 06/23/20 18:00 109 33 120/69 (86) 96 06/23/20 18:00 33 Mechanical Ventilator 100 06/23/20 17:36 98 33 100 06/23/20 17:00 109 33 120/69 (86) 96 06/23/20 17:00 33 Mechanical Ventilator 100 06/23/20 16:00 100 06/23/20 16:00 33 Mechanical Ventilator 100 06/23/20 16:00 109 33 120/69 (86) 96 06/23/20 16:00 98 06/23/20 16:00 Mechanical Ventilator Mechanical Ventilator 06/23/20 15:20 97 34 100 06/23/20 15:00 109 33 120/69 (86) 96 06/23/20 15:00 33 Mechanical Ventilator 100 06/23/20 14:00 34 Mechanical Ventilator 100 06/23/20 14:00 105 34 95 06/23/20 13:34 Mechanical Ventilator 100 06/23/20 13:30 109 33 120/69 (86) 96 06/23/20 13:23 117 30 100 06/23/20 13:00 106 37 111/70 (84) 97 06/23/20 13:00 106 37 111/70 (84) 97 Intake and Output 06/23/20 2 19:00 07:00 Intake Total 330.5 ml 602.5 ml Output Total 2860 ml 780 ml Balance -2529.5 ml -177.5 ml IV Total 330.5 ml 352.5 ml Blood Product 250 ml Output Urine Total 2860 ml 680 ml Stool Total 100 ml Current Medications Medications (Trade) Dose Ordered Sig/Zelda Route PRN Reason Start Time Stop Time Status Last Admin Dose Admin Acetaminophen (Tylenol) 650 mg Q4H PRN NG Temp >100.5 05/31/20 21:45 06/30/20 21:44 06/21/20 12:19 Acetaminophen (Tylenol) 650 mg Q6H PRN NG Mild Pain (Pain Scale 1-3) 06/06/20 18:00 07/06/20 17:59 06/13/20 23:10 Chlorhexidine Gluconate (Inna-Hex 2%) 1 applic DAILY@2000 TOPIC 05/30/20 20:00 08/28/20 19:59 06/23/20 20:00 Dextrose (Dextrose 50%) 25 ml Q30M PRN IV Hypoglycemia 06/05/20 10:45 09/03/20 10:44 Dextrose (Dextrose 50%) 50 ml Q30M PRN IV Hypoglycemia 06/05/20 10:45 09/03/20 10:44 Docusate Sodium (Colace) 100 mg Q12HR GT 06/07/20 21:00 07/07/20 20:59 06/23/20 08:49 Enoxaparin Sodium (Lovenox) 40 mg DAILY SUBQ 05/30/20 10:00 08/28/20 09:59 06/24/20 08:42 Furosemide (Lasix) 40 mg DAILY IV 06/22/20 09:00 07/22/20 08:59 06/24/20 08:41 Insulin Aspart (NovoLOG) EVERY 6 HOURS SUBQ 06/07/20 00:00 09/03/20 11:59 06/21/20 12:00 Midazolam HCl 100 mg/Sodium Chloride 200 ml @ 0 mls/hr Q24H PRN IV sedation 06/23/20 12:00 06/25/20 11:59 06/24/20 09:21 Midodrine (Pro-Amatine) 10 mg Q8HR ORAL 06/14/20 14:00 09/12/20 13:59 06/24/20 05:54 Pantoprazole (Protonix) 40 mg Q12HR IVP 06/13/20 21:00 07/03/20 08:59 06/24/20 08:41 Polyethylene Glycol (Miralax) 17 gm BEDTIME GT 06/07/20 21:00 07/07/20 20:59 06/17/20 21:02 Laboratory Tests 06/23/20 18:27: POC Whole Blood Glucose 114H 06/23/20 23:55: POC Whole Blood Glucose 115H 06/24/20 05:34: White Blood Count 5.9, Red Blood Count 3.46L, Hemoglobin 9.9L, Hematocrit 31.9L, Mean Corpuscular Volume 92, Mean Corpuscular Hemoglobin 28.7, Mean Corpuscular Hemoglobin Concent 31.1L, Red Cell Distribution Width 16.5H, Platelet Count 211, Mean Platelet Volume 7.7, Neutrophils (%) (Auto) 73.7, Lymphocytes (%) (Auto) 14.1L, Monocytes (%) (Auto) 3.8, Eosinophils (%) (Auto) 7.4H, Basophils (%) (Auto) 1.0, Sodium Level 143, Potassium Level 3.8, Chloride Level 102, Carbon Dioxide Level 36H, Anion Gap 5, Blood Urea Nitrogen 26H, Creatinine 0.6, Estimat Glomerular Filtration Rate > 60, Glucose Level 100, Calcium Level 9.3, Phosphorus Level 3.7, Magnesium Level 1.8, Total Bilirubin 1.4H, Direct Bilirubin 0.2, Aspartate Amino Transf (AST/SGOT) 31, Alanine Aminotransferase (ALT/SGPT) 20, Alkaline Phosphatase 80, Total Protein 7.0, Albumin 2.0L, Globulin 5.0, Albumin/Globulin Ratio 0.4L 06/24/20 05:59: POC Whole Blood Glucose 97 06/24/20 07:20: Arterial Blood pH 7.425, Arterial Blood Partial Pressure CO2 56.7*H, Arterial Blood Partial Pressure O2 70.9L, Arterial Blood HCO3 36.4H, Arterial Blood Oxygen Saturation 92.7L, Arterial Blood Base Excess 10.5*H, Jeremiah Test Positive Height (Feet): 5 Height (Inches): 5.00 Weight (Pounds): 308 General Appearance: no apparent distress EENT: other - Intubated on ventilator Cardiovascular: tachycardia Respiratory/Chest: decreased breath sounds Abdomen: distended Rigo Tyler MD Jun 24, 2020 12:39
--- NOTE | 2020-06-24 13:01 | NUR ---
NURSE NOTES: LATE ENTRY; HERE TO SEE PT. WAS UPDATED ON SITUATION. PT NOT WEANING. PT HAS BROTHER. ON VERSED AT 15MG. RECOMMEND FLUIDS FOR PT IS NPO. ORDER FOR D5 1/2 NS AT 50ML/HR
--- NOTE | 2020-06-24 13:59 | Consultation ---
DATE OF CONSULTATION: 06/24/2020 ENDOCRINOLOGY CONSULTATION CONSULTING PHYSICIAN: Lanre Butler M.D. REFERRING PHYSICIAN: Tank Del Cid M.D. REASON FOR CONSULTATION: I was asked to see this 50-year-old female by Dr. Tank Del Cid in Endocrinology consultation for management of type 2 diabetes mellitus, out of control. PERTINENT HISTORY: The patient also had 01/26/2021 acute COVID pneumonia, has been on ICU care ever since. Once she was stable, she weaned off steroids. She has Decadron 10 mg IV push q.a.m. She received Levemir 25 units q.12 h.r ,and Lispro 10u sc TI ac FAMILY HISTORY: Unremarkable. PHYSICAL EXAMINATION: GENERAL: Patient is in no acute distress, morbidly obese. VITAL SIGNS: Blood pressure is 170/65, pulse 112, respirations 20, weight is 129 kg. HEAD AND NECK: Unremarkable. LUNGS: Decreased breath sounds. HEART: Distant. ABDOMEN: Obese. Bowel sounds present. EXTREMITIES: Trace edema. NEUROLOGICAL: Cranial nerves II through XII are intact. Toes are downgoing to plantar stimulation. LABORATORY DATA: Glucose 275 mg %. ASSESSMENT: 1.siabetes Mellitus Type 2 out of control 2. Acute COVID pneumonia. 3. Morbid obesity. PLAN: Levemir 25u .sc q12hrs and glucerna 1.2 30 cc/hr per NGT Hba1c in am.Sliding scale novolog Q6hrs Lanre Butler M.D. DR: DAVID JOB#: [id number] CC: HUEY
--- NOTE | 2020-06-24 14:01 | Surgery Progress Note ---
Surgery Progress Note Subjective Additional Comments ill appearing on 100% fio2 peep 7 labs noted no n/v Objective Last 24 Hour Vital Signs Date Time Temp Pulse Resp B/P (MAP) Pulse Ox O2 Delivery O2 Flow Rate FiO2 06/24/20 13:30 88 26 99/66 (77) 99 06/24/20 13:30 86 25 100 06/24/20 13:00 91 28 105/72 (83) 98 06/24/20 12:30 92 26 100/64 (76) 98 06/24/20 12:00 Mechanical Ventilator Mechanical Ventilator 06/24/20 12:00 97.0 93 27 101/65 (77) 99 06/24/20 12:00 100 06/24/20 11:30 85 24 101/67 (78) 97 06/24/20 11:09 90 23 96/63 (74) 99 06/24/20 11:02 89 22 100 06/24/20 11:00 90 21 88/55 (66) 99 06/24/20 10:30 90 24 90/57 (68) 99 06/24/20 10:00 88 24 92/58 (69) 99 06/24/20 09:30 91 24 100/62 (75) 100 06/24/20 09:21 Mechanical Ventilator 06/24/20 09:15 90 27 100 06/24/20 09:00 93 23 99/55 (70) 98 06/24/20 08:30 92 14 103/58 (73) 97 06/24/20 08:00 93 24 104/61 (75) 98 06/24/20 08:00 100 06/24/20 08:00 Mechanical Ventilator Mechanical Ventilator 06/24/20 08:00 95 06/24/20 07:17 95 27 100 06/24/20 07:00 93 19 97/58 (71) 98 06/24/20 07:00 19 Mechanical Ventilator 100 06/24/20 06:30 94 22 108/69 (82) 100 06/24/20 06:30 94 22 06/24/20 06:00 30 Mechanical Ventilator 100 06/24/20 06:00 105 30 109/66 (80) 100 06/24/20 05:00 30 Mechanical Ventilator 100 06/24/20 05:00 108 30 116/74 (88) 100 06/24/20 04:00 98.0 110 31 110/63 (79) 99 06/24/20 04:00 109 06/24/20 04:00 31 Mechanical Ventilator 100 06/24/20 04:00 Mechanical Ventilator Mechanical Ventilator 06/24/20 04:00 100 06/24/20 03:20 95 32 100 06/24/20 03:00 29 Mechanical Ventilator 100 06/24/20 03:00 98 29 108/69 (82) 100 06/24/20 02:31 23 Mechanical Ventilator 100 06/24/20 02:30 23 Mechanical Ventilator 100 06/24/20 02:00 98 31 114/75 (88) 98 06/24/20 02:00 31 Mechanical Ventilator 100 06/24/20 01:00 30 Mechanical Ventilator 100 06/24/20 01:00 100 30 111/78 (89) 99 06/24/20 00:00 Mechanical Ventilator Mechanical Ventilator 06/24/20 00:00 97.0 97 32 125/83 (97) 98 06/24/20 00:00 32 Mechanical Ventilator 100 06/24/20 00:00 97 06/24/20 00:00 100 06/23/20 23:20 95 32 100 06/23/20 23:00 97 33 139/79 (99) 95 06/23/20 23:00 33 Mechanical Ventilator 100 06/23/20 22:00 34 Mechanical Ventilator 100 06/23/20 22:00 98 34 140/86 (104) 95 06/23/20 21:00 97 31 123/73 (90) 98 06/23/20 21:00 31 Mechanical Ventilator 100 06/23/20 20:14 34 Mechanical Ventilator 100 06/23/20 20:00 100 06/23/20 20:00 99 06/23/20 20:00 34 Mechanical Ventilator 100 06/23/20 20:00 Mechanical Ventilator Mechanical Ventilator 06/23/20 20:00 97.0 97 34 132/75 (94) 96 06/23/20 19:10 95 32 100 06/23/20 19:00 34 Mechanical Ventilator 100 06/23/20 19:00 96 34 138/80 (99) 95 06/23/20 18:00 109 33 120/69 (86) 96 06/23/20 18:00 33 Mechanical Ventilator 100 06/23/20 17:36 98 33 100 06/23/20 17:00 109 33 120/69 (86) 96 06/23/20 17:00 33 Mechanical Ventilator 100 06/23/20 16:00 100 06/23/20 16:00 33 Mechanical Ventilator 100 06/23/20 16:00 109 33 120/69 (86) 96 06/23/20 16:00 98 06/23/20 16:00 Mechanical Ventilator Mechanical Ventilator 06/23/20 15:20 97 34 100 06/23/20 15:00 109 33 120/69 (86) 96 06/23/20 15:00 33 Mechanical Ventilator 100 I&O Intake and Output 06/23/20 06/24/20 19:00 07:00 Intake Total 330.5 ml 602.5 ml Output Total 2860 ml 780 ml Balance -2529.5 ml -177.5 ml IV Total 330.5 ml 352.5 ml Blood Product 250 ml Output Urine Total 2860 ml 680 ml Stool Total 100 ml Cardiovascular: RSR Respiratory: decreased breath sounds Abdomen: soft, non-tender, decreased bowel sounds Extremities: edema, no tenderness, no cyanosis Laboratory Tests Test 06/23/20 18:27 06/23/20 23:55 06/24/20 05:34 06/24/20 05:59 POC Whole Blood Glucose 114 MG/DL (74-106) H 115 MG/DL (74-106) H 97 MG/DL (74-106) White Blood Count 5.9 K/UL (4.8-10.8) Red Blood Count 3.46 M/UL (4.20-5.40) L Hemoglobin 9.9 G/DL (12.0-16.0) L Hematocrit 31.9 % (37.0-47.0) L Mean Corpuscular Volume 92 FL (80-99) Mean Corpuscular Hemoglobin 28.7 PG (27.0-31.0) Mean Corpuscular Hemoglobin Concent 31.1 G/DL (32.0-36.0) L Red Cell Distribution Width 16.5 % (11.6-14.8) H Platelet Count 211 K/UL (150-450) Mean Platelet Volume 7.7 FL (6.5-10.1) Neutrophils (%) (Auto) 73.7 % (45.0-75.0) Lymphocytes (%) (Auto) 14.1 % (20.0-45.0) L Monocytes (%) (Auto) 3.8 % (1.0-10.0) Eosinophils (%) (Auto) 7.4 % (0.0-3.0) H Basophils (%) (Auto) 1.0 % (0.0-2.0) Sodium Level 143 MMOL/L (136-145) Potassium Level 3.8 MMOL/L (3.5-5.1) Chloride Level 102 MMOL/L (98-107) Carbon Dioxide Level 36 MMOL/L (21-32) H Anion Gap 5 mmol/L (5-15) Blood Urea Nitrogen 26 mg/dL (7-18) H Creatinine 0.6 MG/DL (0.55-1.30) Estimat Glomerular Filtration Rate > 60 mL/min (>60) Glucose Level 100 MG/DL (74-106) Calcium Level 9.3 MG/DL (8.5-10.1) Phosphorus Level 3.7 MG/DL (2.5-4.9) Magnesium Level 1.8 MG/DL (1.8-2.4) Total Bilirubin 1.4 MG/DL (0.2-1.0) H Direct Bilirubin 0.2 MG/DL (0.0-0.3) Aspartate Amino Transf (AST/SGOT) 31 U/L (15-37) Alanine Aminotransferase (ALT/SGPT) 20 U/L (12-78) Alkaline Phosphatase 80 U/L (46-116) Total Protein 7.0 G/DL (6.4-8.2) Albumin 2.0 G/DL (3.4-5.0) L Globulin 5.0 g/dL Albumin/Globulin Ratio 0.4 (1.0-2.7) L Test 06/24/20 07:20 06/24/20 13:40 Arterial Blood pH 7.425 (7.350-7.450) Arterial Blood Partial Pressure CO2 56.7 mmHg (35.0-45.0) *H Arterial Blood Partial Pressure O2 70.9 mmHg (75.0-100.0) L Arterial Blood HCO3 36.4 mmol/L (22.0-26.0) H Arterial Blood Oxygen Saturation 92.7 % (95-100) L Arterial Blood Base Excess 10.5 (-2-2) *H Jeremiah Test Positive POC Whole Blood Glucose 127 MG/DL (74-106) H Plan Problems: (1) Respiratory distress (2) Respiratory failure Assessment & Plan: 50-year-old female Covid positive respiratory insufficiency intubated on ventilatory support declining. Leukocytosis increase oxygen requirement. Vent settings per pulmonology reviewed identified and agree. Unfortunately further surgical invention at this time is not appropriate as patient is not a candidate and her current condition. Prognosis overall guarded. Tracheostomy can be considered in the future if recovering or shows improvement and requires unable to be weaned from ventilator support. Currently okay for nutritional optimization with NG tube. Will need significant monitoring for decubitus formation given patient's size and condition. Okay for air mattress tolerated. Turn every 2 hours as tolerated. Patient is otherwise critically ill and blood pressure labile. Will need to monitor close ly.Bilateral infiltrates are again demonstrated. Stable tube and line positions. will need trach will need to wean vent first (3) Hypoxia (4) Pneumonia due to COVID-19 virus Assessment & Plan: ++ as per pulm and ID (5) Diabetes mellitus out of control Assessment & Plan: DAILY ESTIMATED NEEDS: Needs based on Critical care, obesity 11-14kcal/kg actual body wt (140kg) kcals/kg 4452-5342 total kcals 1.5-2.0g prot/kg IBW (64.5kg) g protein/kg 96-129 g total protein 25-30ml/kg abw (83kg) mL/kg 0382-7505 total fluid mLs NUTRITION DIAGNOSIS: Swallowing difficulty R/T respiratory failure as evidenced by pt orally intubated and sedated, on OGT feeds. CURRENT TF: Vital 1.2 goal of 60ml/hr ENTERAL NUTRITION RECOMMENDATIONS: Vital AF 1.2 @ 60ml/hr x 24 hrs to provide 1440ml, 1728kcal, 108g prot, 1168ml free water * Maintain current critical care and carb controlled TF formula of Vital AF * TF @ goal meeds 100% est kcal/prot needs * HOB over 30 degrees/ water flush per TF may be lowered to 55ml/hr for improved BG control while maintaining Kcal and pro needs. ADDITIONAL RECOMMENDATIONS: * Calibrated bedscale wt * Monitor Propofol rate, need for TF adjustment-> now off * Monitor BGs closely : now improved, on novolog q 6rs + NISS * Monitor lytes- K elevated, monitor need for TF change * Rec bowel regimen- now w/ rectal tube . Az Devine Jun 24, 2020 14:01
--- NOTE | 2020-06-24 15:46 | Pulmonology Progress Note ---
Subjective ROS Limited/Unobtainable: Yes Interval Events: Remains intubated Constitutional: Reports: fever, other - T=103 HEENT: Repors: no symptoms Respiratory: Reports: no symptoms Cardiovascular: Reports: no symptoms Gastrointestinal/Abdominal: Reports: no symptoms Genitourinary: Reports: no symptoms Allergies: Coded Allergies: No Known Allergies (Unverified , 05/28/20) All Systems: reviewed and negative except above Objective Last 24 Hour Vital Signs Date Time Temp Pulse Resp B/P (MAP) Pulse Ox O2 Delivery O2 Flow Rate FiO2 06/24/20 13:30 88 26 99/66 (77) 99 06/24/20 13:30 86 25 100 06/24/20 13:00 91 28 105/72 (83) 98 06/24/20 12:30 92 26 100/64 (76) 98 06/24/20 12:00 Mechanical Ventilator Mechanical Ventilator 06/24/20 12:00 97.0 93 27 101/65 (77) 99 06/24/20 12:00 100 06/24/20 11:30 85 24 101/67 (78) 97 06/24/20 11:09 90 23 96/63 (74) 99 06/24/20 11:02 89 22 100 06/24/20 11:00 90 21 88/55 (66) 99 06/24/20 10:30 90 24 90/57 (68) 99 06/24/20 10:00 88 24 92/58 (69) 99 06/24/20 09:30 91 24 100/62 (75) 100 06/24/20 09:21 Mechanical Ventilator 06/24/20 09:15 90 27 100 06/24/20 09:00 93 23 99/55 (70) 98 06/24/20 08:30 92 14 103/58 (73) 97 06/24/20 08:00 93 24 104/61 (75) 98 06/24/20 08:00 100 06/24/20 08:00 Mechanical Ventilator Mechanical Ventilator 06/24/20 08:00 95 06/24/20 07:17 95 27 100 06/24/20 07:00 93 19 97/58 (71) 98 06/24/20 07:00 19 Mechanical Ventilator 100 06/24/20 06:30 94 22 108/69 (82) 100 06/24/20 06:30 94 22 06/24/20 06:00 30 Mechanical Ventilator 100 06/24/20 06:00 105 30 109/66 (80) 100 06/24/20 05:00 30 Mechanical Ventilator 100 06/24/20 05:00 108 30 116/74 (88) 100 06/24/20 04:00 98.0 110 31 110/63 (79) 99 06/24/20 04:00 109 06/24/20 04:00 31 Mechanical Ventilator 100 06/24/20 04:00 Mechanical Ventilator Mechanical Ventilator 06/24/20 04:00 100 06/24/20 03:20 95 32 100 06/24/20 03:00 29 Mechanical Ventilator 100 06/24/20 03:00 98 29 108/69 (82) 100 06/24/20 02:31 23 Mechanical Ventilator 100 06/24/20 02:30 23 Mechanical Ventilator 100 06/24/20 02:00 98 31 114/75 (88) 98 06/24/20 02:00 31 Mechanical Ventilator 100 06/24/20 01:00 30 Mechanical Ventilator 100 06/24/20 01:00 100 30 111/78 (89) 99 06/24/20 00:00 Mechanical Ventilator Mechanical Ventilator 06/24/20 00:00 97.0 97 32 125/83 (97) 98 06/24/20 00:00 32 Mechanical Ventilator 100 06/24/20 00:00 97 06/24/20 00:00 100 06/23/20 23:20 95 32 100 06/23/20 23:00 97 33 139/79 (99) 95 06/23/20 23:00 33 Mechanical Ventilator 100 06/23/20 22:00 34 Mechanical Ventilator 100 06/23/20 22:00 98 34 140/86 (104) 95 06/23/20 21:00 97 31 123/73 (90) 98 06/23/20 21:00 31 Mechanical Ventilator 100 06/23/20 20:14 34 Mechanical Ventilator 100 06/23/20 20:00 100 06/23/20 20:00 99 06/23/20 20:00 34 Mechanical Ventilator 100 06/23/20 20:00 Mechanical Ventilator Mechanical Ventilator 06/23/20 20:00 97.0 97 34 132/75 (94) 96 06/23/20 19:10 95 32 100 06/23/20 19:00 34 Mechanical Ventilator 100 06/23/20 19:00 96 34 138/80 (99) 95 06/23/20 18:00 109 33 120/69 (86) 96 06/23/20 18:00 33 Mechanical Ventilator 100 06/23/20 17:36 98 33 100 06/23/20 17:00 109 33 120/69 (86) 96 06/23/20 17:00 33 Mechanical Ventilator 100 06/23/20 16:00 100 06/23/20 16:00 33 Mechanical Ventilator 100 06/23/20 16:00 109 33 120/69 (86) 96 06/23/20 16:00 98 06/23/20 16:00 Mechanical Ventilator Mechanical Ventilator Intake and Output 06/23/20 06/24/20 19:00 07:00 Intake Total 330.5 ml 602.5 ml Output Total 2860 ml 780 ml Balance -2529.5 ml -177.5 ml IV Total 330.5 ml 352.5 ml Blood Product 250 ml Output Urine Total 2860 ml 680 ml Stool Total 100 ml General Appearance: no acute distress HEENT: normocephalic Respiratory: chest wall non-tender Cardiovascular: normal peripheral pulses Abdomen: normal bowel sounds Laboratory Tests 06/23/20 18:27: POC Whole Blood Glucose 114H 06/23/20 23:55: POC Whole Blood Glucose 115H 06/24/20 05:34: White Blood Count 5.9, Red Blood Count 3.46L, Hemoglobin 9.9L, Hematocrit 31.9L, Mean Corpuscular Volume 92, Mean Corpuscular Hemoglobin 28.7, Mean Corpuscular Hemoglobin Concent 31.1L, Red Cell Distribution Width 16.5H, Platelet Count 211, Mean Platelet Volume 7.7, Neutrophils (%) (Auto) 73.7, Lymphocytes (%) (Auto) 14.1L, Monocytes (%) (Auto) 3.8, Eosinophils (%) (Auto) 7.4H, Basophils (%) (Auto) 1.0, Sodium Level 143, Potassium Level 3.8, Chloride Level 102, Carbon Dioxide Level 36H, Anion Gap 5, Blood Urea Nitrogen 26H, Creatinine 0.6, Estimat Glomerular Filtration Rate > 60, Glucose Level 100, Calcium Level 9.3, Phosphorus Level 3.7, Magnesium Level 1.8, Total Bilirubin 1.4H, Direct Bilirubin 0.2, Aspartate Amino Transf (AST/SGOT) 31, Alanine Aminotransferase (ALT/SGPT) 20, Alkaline Phosphatase 80, Total Protein 7.0, Albumin 2.0L, Globulin 5.0, Albumin/Globulin Ratio 0.4L 06/24/20 05:59: POC Whole Blood Glucose 97 06/24/20 07:20: Arterial Blood pH 7.425, Arterial Blood Partial Pressure CO2 56.7*H, Arterial Blood Partial Pressure O2 70.9L, Arterial Blood HCO3 36.4H, Arterial Blood Oxygen Saturation 92.7L, Arterial Blood Base Excess 10.5*H, Jeremiah Test Positive 06/24/20 13:40: POC Whole Blood Glucose 127H Current Medications Medications (Trade) Dose Ordered Sig/Zelda Route PRN Reason Start Time Stop Time Status Last Admin Dose Admin Acetaminophen (Tylenol) 650 mg Q4H PRN NG Temp >100.5 05/31/20 21:45 06/30/20 21:44 06/21/20 12:19 Acetaminophen (Tylenol) 650 mg Q6H PRN NG Mild Pain (Pain Scale 1-3) 06/06/20 18:00 07/06/20 17:59 06/13/20 23:10 Chlorhexidine Gluconate (Inna-Hex 2%) 1 applic DAILY@2000 TOPIC 05/30/20 20:00 08/28/20 19:59 06/23/20 20:00 Dextrose (Dextrose 50%) 25 ml Q30M PRN IV Hypoglycemia 06/05/20 10:45 09/03/20 10:44 Dextrose (Dextrose 50%) 50 ml Q30M PRN IV Hypoglycemia 06/05/20 10:45 09/03/20 10:44 Docusate Sodium (Colace) 100 mg Q12HR GT 06/07/20 21:00 07/07/20 20:59 06/23/20 08:49 Enoxaparin Sodium (Lovenox) 40 mg DAILY SUBQ 05/30/20 10:00 08/28/20 09:59 06/24/20 08:42 Furosemide (Lasix) 40 mg DAILY IV 06/22/20 09:00 07/22/20 08:59 06/24/20 08:41 Insulin Aspart (NovoLOG) EVERY 6 HOURS SUBQ 06/07/20 00:00 09/03/20 11:59 06/21/20 12:00 Midazolam HCl 100 mg/Sodium Chloride 200 ml @ 0 mls/hr Q24H PRN IV sedation 06/23/20 12:00 06/25/20 11:59 06/24/20 09:21 Midodrine (Pro-Amatine) 10 mg Q8HR ORAL 06/14/20 14:00 09/12/20 13:59 06/24/20 05:54 Pantoprazole (Protonix) 40 mg Q12HR IVP 06/13/20 21:00 07/03/20 08:59 06/24/20 08:41 Polyethylene Glycol (Miralax) 17 gm BEDTIME GT 06/07/20 21:00 07/07/20 20:59 06/17/20 21:02 Assessment/Plan Assessment/Plan 1. COVID-19 pneumonia -Intubated 05/28/20 - We will continue broad-spectrum antibiotics. -s/p solumedrol, Rocephin -Continue PEEP 7 - Peak airway pressures high; approx 48 now - FiO2 100% -> 90 ->80->60 ->40 ->80 ->100%; -will continue OGT feeding -Continue sedation; Need to keep patient completely sedated. - ABG slight improvement 2. Hyponatremia -Per primary MD 3. Elevated inflammatory markers - has high D dimer; Lovenox on hold due to hematuria 4. Decrease PEEP Continue weaning efforts May need trach Discussed with surgery Currently FiO2 too high for safe tracheostomy Long discussion with family who wish to wean her off the oxygen eventually instead of trach. Trach if "necessary" per family. Javier Nava MD Jun 24, 2020 15:46
[2020-06-24] MEDS: D5 1/2NS 1,000 ML IV SCH (16:57)
--- NOTE | 2020-06-24 17:46 | NUR ---
INSURANCE CLINICALS/REVIEW FAXED TO [facility] T: [phone] EXT [id number] F: [phone]
--- NOTE | 2020-06-24 19:17 | NUR ---
NURSE HAND-OFF REPORT: Latest Vital Signs: Temperature 98.8 , Pulse 106 , B/P 99 /61 , Respiratory Rate 26 , O2 SAT 100 , Mechanical Ventilator, O2 Flow Rate . Vital Sign Comment: EKG Rhythm: Sinus Rhythm Rhythm change?: N Notified?: Babs EDWARDS MD Response: Latest Meyers Fall Score: 70 Fall Risk: High Risk Safety Measures: Call light Within Reach, Bed Alarm Zone 1, Side Rails Side Rails x2, Bed position Low and Locked. Fall Precautions: Yellow Socks Report given to . report given to Geri Jalloh pt in no acute distress.
[2020-06-24] MEDS: Dyna-Hex 2% Top Sol 2oz TOPIC SCH (20:09)
--- NOTE | 2020-06-24 20:22 | NUR ---
NURSE NOTES: received report from jasen pt orally intubated -vent o2 sat 99% NO ACUTE RESP DISTRESS NOTED ON VERSED 15 MG/HR ON-2RASS PT NPO URINARY OUTPUT GOOD REPOSITION AND SUCTION
[2020-06-24] MEDS: Miralax 17gm pkt GT SCH (20:43)
--- NOTE | 2020-06-24 22:00 | NUR ---
NURSE NOTES: reposition
[2020-06-25] VITALS (26 sets, daily range): BP systolic 95–128; BP diastolic 32–97
--- NOTE | 2020-06-25 | NUR ---
NURSE NOTES: bs 117 no insulin coverage
[2020-06-25] MEDS: Midazolam HCl 50mg/10ml vial 100 MG in NS 180 ML IV PRN ×4 (00:11→20:43)
--- NOTE | 2020-06-25 04:00 | NUR ---
NURSE NOTES: complete bed bath oral care and back care done reposition and suction
[2020-06-25 05:22] LABS: BASOPHILS % (AUTO) 1.4 % (0.0-2.0); EOSINOPHILS % (AUTO) 6.4 % (0.0-3.0); HEMATOCRIT 28.1 % (37.0-47.0); HEMOGLOBIN 8.7 G/DL (12.0-16.0); MEAN CORPUSCULAR VOLUME 92 FL (80-99); MONOCYTES % (AUTO) 5.1 % (1.0-10.0); PLATELET COUNT 210 K/UL (150-450); RED BLOOD COUNT 3.06 M/UL (4.20-5.40); RED CELL DISTRIBUTION WIDTH 16.8 % (11.6-14.8); WHITE BLOOD COUNT 7.4 K/UL (4.8-10.8)
[2020-06-25 05:40] LABS: ANION GAP 7 mmol/L (5-15); BLOOD UREA NITROGEN 23 mg/dL (7-18); CALCIUM 9.1 MG/DL (8.5-10.1); CARBON DIOXIDE 33 MMOL/L (21-32); CHLORIDE 105 MMOL/L (98-107); CREATININE 0.5 MG/DL (0.55-1.30); POTASSIUM 3.6 MMOL/L (3.5-5.1); SODIUM 144 MMOL/L (136-145)
[2020-06-25] MEDS: NovoLOG Insulin Flexpen SUBQ SCH ×4 (06:00→18:00)
--- NOTE | 2020-06-25 06:00 | NUR ---
NURSE NOTES: bs 123 no insulin coverage
[2020-06-25] MEDS: Midodrine 10mg tab ORAL SCH ×3 (06:09→21:12)
--- NOTE | 2020-06-25 06:24 | General Progress Note ---
Subjective ROS Limited/Unobtainable: Yes Allergies: Coded Allergies: No Known Allergies (Unverified , 05/28/20) Subjective events noted interval notes reviewed glucose values are stable intubated in ICU Item Value Date Time Bedside Blood Glucose 123 mg/dl H 06/25/20 0600 Bedside Blood Glucose 117 mg/dl 06/25/20 0000 Bedside Blood Glucose 105 mg/dl 06/24/20 1800 Bedside Blood Glucose 127 mg/dl H 06/24/20 1200 Bedside Blood Glucose 97 mg/dl 06/24/20 0600 Objective Last 24 Hour Vital Signs Date Time Temp Pulse Resp B/P (MAP) Pulse Ox O2 Delivery O2 Flow Rate FiO2 06/25/20 06:00 99 31 118/79 (92) 96 06/25/20 05:19 101 30 100 06/25/20 05:00 99 31 111/81 (91) 99 06/25/20 04:00 Mechanical Ventilator Mechanical Ventilator 06/25/20 04:00 100 06/25/20 04:00 97.5 96 27 115/78 (90) 97 06/25/20 04:00 97 06/25/20 03:57 22 Mechanical Ventilator 100 06/25/20 03:18 100 28 100 06/25/20 03:00 97 30 116/74 (88) 96 06/25/20 02:57 28 100 06/25/20 02:00 92 27 99/58 (72) 97 06/25/20 01:57 26 Mechanical Ventilator 100 06/25/20 01:00 95 0 100/59 (73) 99 06/25/20 00:59 92 27 100 06/25/20 00:57 16 Mechanical Ventilator 100 06/25/20 00:11 24 100 06/25/20 00:01 27 100 06/25/20 00:00 100 06/25/20 00:00 93 06/25/20 00:00 98.7 92 24 104/66 (79) 99 06/25/20 00:00 Mechanical Ventilator Mechanical Ventilator 06/24/20 23:57 29 Mechanical Ventilator 100 06/24/20 23:10 94 28 100 06/24/20 23:00 93 27 108/72 (84) 98 06/24/20 22:57 24 Mechanical Ventilator 100 06/24/20 22:00 99 29 102/66 (78) 100 06/24/20 21:57 25 Mechanical Ventilator 100 06/24/20 21:20 106 27 100 06/24/20 21:00 98 26 103/69 (80) 99 06/24/20 20:57 23 Mechanical Ventilator 100 06/24/20 20:00 Mechanical Ventilator Mechanical Ventilator 06/24/20 20:00 98.7 99 27 100/63 (75) 100 06/24/20 20:00 110 06/24/20 20:00 100 06/24/20 19:57 23 Mechanical Ventilator 100 06/24/20 19:10 106 26 100 06/24/20 19:00 107 27 99/61 (74) 100 06/24/20 18:57 Mechanical Ventilator 06/24/20 18:30 105 27 93/56 (68) 100 06/24/20 18:15 103 24 93/56 (68) 100 06/24/20 18:00 104 27 85/54 (64) 100 06/24/20 17:57 Mechanical Ventilator 06/24/20 17:21 98 28 100 06/24/20 17:00 100 29 103/64 (77) 97 06/24/20 16:57 Mechanical Ventilator 06/24/20 16:30 93 25 83/56 (65) 99 06/24/20 16:21 Mechanical Ventilator 06/24/20 16:00 100 06/24/20 16:00 95 06/24/20 16:00 98.8 91 24 93/58 (70) 99 06/24/20 16:00 Mechanical Ventilator Mechanical Ventilator 06/24/20 15:30 89 26 100/58 (72) 99 06/24/20 15:21 Mechanical Ventilator 06/24/20 15:20 89 24 100 06/24/20 15:00 91 24 106/66 (79) 98 06/24/20 14:30 88 24 97/58 (71) 100 06/24/20 14:21 Mechanical Ventilator 06/24/20 14:00 87 23 93/62 (72) 97 06/24/20 13:30 88 26 99/66 (77) 99 06/24/20 13:30 86 25 100 06/24/20 13:21 Mechanical Ventilator 06/24/20 13:00 91 28 105/72 (83) 98 06/24/20 12:30 92 26 100/64 (76) 98 06/24/20 12:21 Mechanical Ventilator 06/24/20 12:00 Mechanical Ventilator Mechanical Ventilator 06/24/20 12:00 97.0 93 27 101/65 (77) 99 06/24/20 12:00 94 06/24/20 12:00 100 06/24/20 11:30 85 24 101/67 (78) 97 06/24/20 11:21 Mechanical Ventilator 06/24/20 11:09 90 23 96/63 (74) 99 06/24/20 11:02 89 22 100 06/24/20 11:00 90 21 88/55 (66) 99 06/24/20 10:30 90 24 90/57 (68) 99 06/24/20 10:21 Mechanical Ventilator 06/24/20 10:00 88 24 92/58 (69) 99 06/24/20 09:30 91 24 100/62 (75) 100 06/24/20 09:21 Mechanical Ventilator 06/24/20 09:15 90 27 100 06/24/20 09:00 93 23 99/55 (70) 98 06/24/20 09:00 Mechanical Ventilator 06/24/20 08:30 92 14 103/58 (73) 97 06/24/20 08:00 93 24 104/61 (75) 98 06/24/20 08:00 Mechanical Ventilator 06/24/20 08:00 100 06/24/20 08:00 Mechanical Ventilator Mechanical Ventilator 06/24/20 08:00 95 06/24/20 07:17 95 27 100 06/24/20 07:00 93 19 97/58 (71) 98 06/24/20 07:00 19 Mechanical Ventilator 100 06/24/20 06:30 94 22 108/69 (82) 100 06/24/20 06:30 94 22 Intake and Output 06/24/20 06/25/20 19:00 07:00 Intake Total 446 ml 720 ml Output Total 495 ml 680 ml Balance -49 ml 40 ml IV Total 426 ml 720 ml Other 20 ml Output Urine Total 495 ml 680 ml # Bowel Movements 3 3 Laboratory Tests 06/24/20 07:20: Arterial Blood pH 7.425, Arterial Blood Partial Pressure CO2 56.7*H, Arterial Blood Partial Pressure O2 70.9L, Arterial Blood HCO3 36.4H, Arterial Blood Oxygen Saturation 92.7L, Arterial Blood Base Excess 10.5*H, Jeremiah Test Positive 06/24/20 13:40: POC Whole Blood Glucose 127H 06/24/20 18:12: POC Whole Blood Glucose 105 06/24/20 23:22: POC Whole Blood Glucose 117H 06/25/20 04:15: White Blood Count 7.4, Red Blood Count 3.06L, Hemoglobin 8.7L, Hematocrit 28.1L, Mean Corpuscular Volume 92, Mean Corpuscular Hemoglobin 28.4, Mean Corpuscular Hemoglobin Concent 30.9L, Red Cell Distribution Width 16.8H, Platelet Count 210, Mean Platelet Volume 7.3, Neutrophils (%) (Auto) 74.0, Lymphocytes (%) (Auto) 13.0L, Monocytes (%) (Auto) 5.1, Eosinophils (%) (Auto) 6.4H, Basophils (%) (Auto) 1.4, Sodium Level 144, Potassium Level 3.6, Chloride Level 105, Carbon Dioxide Level 33H, Anion Gap 7, Blood Urea Nitrogen 23H, Creatinine 0.5L, Estimat Glomerular Filtration Rate > 60, Glucose Level 107H, Calcium Level 9.1 06/25/20 06:01: POC Whole Blood Glucose 123H Height (Feet): 5 Height (Inches): 5.00 Weight (Pounds): 308 Objective Current Medications Medications (Trade) Dose Ordered Sig/Zelda Route PRN Reason Start Time Stop Time Status Last Admin Dose Admin Acetaminophen (Tylenol) 650 mg Q4H PRN NG Temp >100.5 05/31/20 21:45 06/30/20 21:44 06/21/20 12:19 Acetaminophen (Tylenol) 650 mg Q6H PRN NG Mild Pain (Pain Scale 1-3) 06/06/20 18:00 07/06/20 17:59 06/13/20 23:10 Chlorhexidine Gluconate (Inna-Hex 2%) 1 applic DAILY@1999 TOPIC 05/30/20 20:00 08/28/20 19:59 06/24/20 20:09 Dextrose (Dextrose 50%) 25 ml Q30M PRN IV Hypoglycemia 06/05/20 10:45 09/03/20 10:44 Dextrose (Dextrose 50%) 50 ml Q30M PRN IV Hypoglycemia 06/05/20 10:45 09/03/20 10:44 Dextrose/Sodium Chloride 1,000 ml @ 50 mls/hr Q20H IV 06/24/20 16:30 07/24/20 16:29 06/24/20 16:57 Docusate Sodium (Colace) 100 mg Q12HR GT 06/07/20 21:00 07/07/20 20:59 06/24/20 21:07 Enoxaparin Sodium (Lovenox) 40 mg DAILY SUBQ 05/30/20 10:00 08/28/20 09:59 06/24/20 08:42 Furosemide (Lasix) 40 mg DAILY IV 06/22/20 09:00 07/22/20 08:59 06/24/20 08:41 Insulin Aspart (NovoLOG) EVERY 6 HOURS SUBQ 06/07/20 00:00 09/03/20 11:59 06/24/20 18:00 Midazolam HCl 100 mg/Sodium Chloride 200 ml @ 0 mls/hr Q24H PRN IV sedation 06/23/20 12:00 06/25/20 11:59 06/25/20 00:11 Midodrine (Pro-Amatine) 10 mg Q8HR ORAL 06/14/20 14:00 09/12/20 13:59 06/25/20 06:09 Pantoprazole (Protonix) 40 mg Q12HR IVP 06/13/20 21:00 07/03/20 08:59 06/24/20 20:43 Polyethylene Glycol (Miralax) 17 gm BEDTIME GT 06/07/20 21:00 07/07/20 20:59 06/17/20 21:02 Assessment/Plan Problem List: (1) Diabetes mellitus out of control ICD Codes: E11.65 - Type 2 diabetes mellitus with hyperglycemia SNOMED: 96073866, [id number] (2) Pneumonia due to COVID-19 virus ICD Codes: U07.1 - COVID-19; J12.82 - Pneumonia due to coronavirus disease 2019 SNOMED: [id number] (3) Respiratory distress ICD Codes: R06.03 - Acute respiratory distress; J12.82 - Pneumonia due to coronavirus disease 2019 SNOMED: 924012020 Status: unchanged Assessment/Plan: no need for basal insulin continue Novolog sliding scale every 6 hours Huber Adame MD Jun 25, 2020 06:24
--- NOTE | 2020-06-25 07:05 | Hematology/Onc Progress Note ---
Assessment/Plan Assessment/Plan # Thrombocytopenia is due to infection/underlying covid19+++ --> ABX ceftriaxone -->zosyn-->off --> on steriods likely cause of initial wbc --> per pulm --> plt 107->156-->192-->205 --> smear reviewed # Anemia due to chronic disease --> hgb goal is >7 --> transfuse prn --> ferritin is >1000 --> hold off on iron --> 10-->9.8->9-->8-->8.2-->9.4-->8.1-->9.9-->8.7 # Elevated ddimer due to covid19++ --> duplex legs is negative --> underlying covid rx # Hypoxia -> due to covid19 # Hypoxemia --> rx same as above # Respiratory failure --> on vent --> per pulm # Pneumonia due to COVID-19 virus --> per pulm rx -> sp remdesivir # Diabetes mellitus out of control --> hgb a1c goal <7 # Poor prognosis # Dvt ppx lovenox sq Appreciate consultation and bowen RN Subjective HEENT: Denies: no symptoms, eye pain, blurred vision, tearing, double vision, ear pain, ear discharge, nose pain, nose congestion, throat pain, throat swellin g, mouth pain, mouth swelling, other Allergies: Coded Allergies: No Known Allergies (Unverified , 05/28/20) All Systems: reviewed and negative except above Subjective 06/10 nv, on vent, with ogt, on fentanyl and versed, plt stable 06/11 nv, vent adjusted is on ogt, meds reviewed 06/12 nv, vent, meds noted, labs noted, no bleeding, hgb 10.4 06/13 nv, is on vent, meds reviewed, no bleeding, cbc reviewed 06/14 nv, on vent, tachy, labs reviewed, gross hematuria, febrile overnight, abx 06/17 nv, on vent, labs noted, no major changes, feeling better overnight 06/18 nv, meds reviewed, labs noted, no major events, hgb 8.6 06/19 nv, remains intubated, with fluids, labs reviewed, meds noted 06/20 nv, intubated remains on restraints, meds noted as well, as labs 06/21 nv, remains on vent, on restraints, meds reviewed, labs noted 06/22: covering Dr. Del Cid no acute events 06/23 sedated, on vent, nv, intubated, meds reviewed, versed 06/24 nv, on vent, no night sweats, no bleeding, remains in icu 06/25 nv, on vent, icu, meds noted, no bleeding, comfortable Objective Objective Current Medications Medications (Trade) Dose Ordered Sig/Zelda Route PRN Reason Start Time Stop Time Status Last Admin Dose Admin Acetaminophen (Tylenol) 650 mg Q4H PRN NG Temp >100.5 05/31/20 21:45 06/30/20 21:44 06/21/20 12:19 Acetaminophen (Tylenol) 650 mg Q6H PRN NG Mild Pain (Pain Scale 1-3) 06/06/20 18:00 07/06/20 17:59 06/13/20 23:10 Chlorhexidine Gluconate (Inna-Hex 2%) 1 applic DAILY@2000 TOPIC 05/30/20 20:00 08/28/20 19:59 06/24/20 20:09 Dextrose (Dextrose 50%) 25 ml Q30M PRN IV Hypoglycemia 06/05/20 10:45 09/03/20 10:44 Dextrose (Dextrose 50%) 50 ml Q30M PRN IV Hypoglycemia 06/05/20 10:45 09/03/20 10:44 Dextrose/Sodium Chloride 1,000 ml @ 50 mls/hr Q20H IV 06/24/20 16:30 07/24/20 16:29 06/24/20 16:57 Docusate Sodium (Colace) 100 mg Q12HR GT 06/07/20 21:00 07/07/20 20:59 06/24/20 21:07 Enoxaparin Sodium (Lovenox) 40 mg DAILY SUBQ 05/30/20 10:00 08/28/20 09:59 06/24/20 08:42 Furosemide (Lasix) 40 mg DAILY IV 06/22/20 09:00 07/22/20 08:59 06/24/20 08:41 Insulin Aspart (NovoLOG) EVERY 6 HOURS SUBQ 06/07/20 00:00 09/03/20 11:59 06/24/20 18:00 Midazolam HCl 100 mg/Sodium Chloride 200 ml @ 0 mls/hr Q24H PRN IV sedation 06/23/20 12:00 06/25/20 11:59 06/25/20 00:11 Midodrine (Pro-Amatine) 10 mg Q8HR ORAL 06/14/20 14:00 09/12/20 13:59 06/25/20 06:09 Pantoprazole (Protonix) 40 mg Q12HR IVP 06/13/20 21:00 07/03/20 08:59 06/24/20 20:43 Polyethylene Glycol (Miralax) 17 gm BEDTIME GT 06/07/20 21:00 07/07/20 20:59 06/17/20 21:02 Last 24 Hour Vital Signs Date Time Temp Pulse Resp B/P (MAP) Pulse Ox O2 Delivery O2 Flow Rate FiO2 06/25/20 06:30 94 22 06/25/20 06:00 99 31 118/79 (92) 96 06/25/20 05:57 23 Mechanical Ventilator 100 06/25/20 05:19 101 30 100 06/25/20 05:00 99 31 111/81 (91) 99 06/25/20 04:57 30 Mechanical Ventilator 06/25/20 04:00 Mechanical Ventilator Mechanical Ventilator 06/25/20 04:00 100 06/25/20 04:00 97.5 96 27 115/78 (90) 97 06/25/20 04:00 97 06/25/20 03:57 22 Mechanical Ventilator 100 06/25/20 03:18 100 28 100 06/25/20 03:00 97 30 116/74 (88) 96 06/25/20 02:57 28 100 06/25/20 02:00 92 27 99/58 (72) 97 06/25/20 01:57 26 Mechanical Ventilator 100 06/25/20 01:00 95 0 100/59 (73) 99 06/25/20 00:59 92 27 100 06/25/20 00:57 16 Mechanical Ventilator 100 06/25/20 00:11 24 100 06/25/20 00:01 27 100 06/25/20 00:00 100 06/25/20 00:00 93 06/25/20 00:00 98.7 92 24 104/66 (79) 99 06/25/20 00:00 Mechanical Ventilator Mechanical Ventilator 06/24/20 23:57 29 Mechanical Ventilator 100 06/24/20 23:10 94 28 100 06/24/20 23:00 93 27 108/72 (84) 98 06/24/20 22:57 24 Mechanical Ventilator 100 06/24/20 22:00 99 29 102/66 (78) 100 06/24/20 21:57 25 Mechanical Ventilator 100 06/24/20 21:20 106 27 100 06/24/20 21:00 98 26 103/69 (80) 99 06/24/20 20:57 23 Mechanical Ventilator 100 06/24/20 20:00 Mechanical Ventilator Mechanical Ventilator 06/24/20 20:00 98.7 99 27 100/63 (75) 100 06/24/20 20:00 110 06/24/20 20:00 100 06/24/20 19:57 23 Mechanical Ventilator 100 06/24/20 19:10 106 26 100 06/24/20 19:00 107 27 99/61 (74) 100 06/24/20 18:57 Mechanical Ventilator 06/24/20 18:30 105 27 93/56 (68) 100 06/24/20 18:15 103 24 93/56 (68) 100 06/24/20 18:00 104 27 85/54 (64) 100 06/24/20 17:57 Mechanical Ventilator 06/24/20 17:21 98 28 100 06/24/20 17:00 100 29 103/64 (77) 97 06/24/20 16:57 Mechanical Ventilator 06/24/20 16:30 93 25 83/56 (65) 99 06/24/20 16:21 Mechanical Ventilator 06/24/20 16:00 100 06/24/20 16:00 95 06/24/20 16:00 98.8 91 24 93/58 (70) 99 06/24/20 16:00 Mechanical Ventilator Mechanical Ventilator 06/24/20 15:30 89 26 100/58 (72) 99 06/24/20 15:21 Mechanical Ventilator 06/24/20 15:20 89 24 100 06/24/20 15:00 91 24 106/66 (79) 98 06/24/20 14:30 88 24 97/58 (71) 100 06/24/20 14:21 Mechanical Ventilator 06/24/20 14:00 87 23 93/62 (72) 97 06/24/20 13:30 88 26 99/66 (77) 99 06/24/20 13:30 86 25 100 06/24/20 13:21 Mechanical Ventilator 06/24/20 13:00 91 28 105/72 (83) 98 06/24/20 12:30 92 26 100/64 (76) 98 06/24/20 12:21 Mechanical Ventilator 06/24/20 12:00 Mechanical Ventilator Mechanical Ventilator 06/24/20 12:00 97.0 93 27 101/65 (77) 99 06/24/20 12:00 94 06/24/20 12:00 100 06/24/20 11:30 85 24 101/67 (78) 97 06/24/20 11:21 Mechanical Ventilator 06/24/20 11:09 90 23 96/63 (74) 99 06/24/20 11:02 89 22 100 06/24/20 11:00 90 21 88/55 (66) 99 06/24/20 10:30 90 24 90/57 (68) 99 06/24/20 10:21 Mechanical Ventilator 06/24/20 10:00 88 24 92/58 (69) 99 06/24/20 09:30 91 24 100/62 (75) 100 06/24/20 09:21 Mechanical Ventilator 06/24/20 09:15 90 27 100 06/24/20 09:00 93 23 99/55 (70) 98 06/24/20 09:00 Mechanical Ventilator 06/24/20 08:30 92 14 103/58 (73) 97 06/24/20 08:00 93 24 104/61 (75) 98 06/24/20 08:00 Mechanical Ventilator 06/24/20 08:00 100 06/24/20 08:00 Mechanical Ventilator Mechanical Ventilator 06/24/20 08:00 95 06/24/20 07:17 95 27 100 06/24/20 07:00 93 19 97/58 (71) 98 06/24/20 07:00 19 Mechanical Ventilator 100 06/24/20 06:30 94 22 108/69 (82) 100 06/24/20 06:30 94 22 06/24/20 06:00 30 Mechanical Ventilator 100 06/24/20 06:00 105 30 109/66 (80) 100 06/24/20 05:00 30 Mechanical Ventilator 100 06/24/20 05:00 108 30 116/74 (88) 100 06/24/20 04:00 98.0 110 31 110/63 (79) 99 06/24/20 04:00 109 06/24/20 04:00 31 Mechanical Ventilator 100 06/24/20 04:00 Mechanical Ventilator Mechanical Ventilator 06/24/20 04:00 100 06/24/20 03:20 95 32 100 06/24/20 03:00 29 Mechanical Ventilator 100 06/24/20 03:00 98 29 108/69 (82) 100 06/24/20 02:31 23 Mechanical Ventilator 100 06/24/20 02:30 23 Mechanical Ventilator 100 06/24/20 02:00 98 31 114/75 (88) 98 06/24/20 02:00 31 Mechanical Ventilator 100 06/24/20 01:00 30 Mechanical Ventilator 100 06/24/20 01:00 100 30 111/78 (89) 99 06/24/20 00:00 Mechanical Ventilator Mechanical Ventilator 06/24/20 00:00 97.0 97 32 125/83 (97) 98 06/24/20 00:00 32 Mechanical Ventilator 100 06/24/20 00:00 97 06/24/20 00:00 100 06/23/20 23:20 95 32 100 06/23/20 23:00 97 33 139/79 (99) 95 06/23/20 23:00 33 Mechanical Ventilator 100 06/23/20 22:00 34 Mechanical Ventilator 100 06/23/20 22:00 98 34 140/86 (104) 95 06/23/20 21:00 97 31 123/73 (90) 98 06/23/20 21:00 31 Mechanical Ventilator 100 06/23/20 20:14 34 Mechanical Ventilator 100 06/23/20 20:00 100 06/23/20 20:00 99 06/23/20 20:00 34 Mechanical Ventilator 100 06/23/20 20:00 Mechanical Ventilator Mechanical Ventilator 06/23/20 20:00 97.0 97 34 132/75 (94) 96 06/23/20 19:10 95 32 100 06/23/20 19:00 34 Mechanical Ventilator 100 06/23/20 19:00 96 34 138/80 (99) 95 06/23/20 18:00 109 33 120/69 (86) 96 06/23/20 18:00 33 Mechanical Ventilator 100 06/23/20 17:36 98 33 100 06/23/20 17:00 109 33 120/69 (86) 96 06/23/20 17:00 33 Mechanical Ventilator 100 06/23/20 16:00 100 06/23/20 16:00 33 Mechanical Ventilator 100 06/23/20 16:00 109 33 120/69 (86) 96 06/23/20 16:00 98 06/23/20 16:00 Mechanical Ventilator Mechanical Ventilator 06/23/20 15:20 97 34 100 06/23/20 15:00 109 33 120/69 (86) 96 06/23/20 15:00 33 Mechanical Ventilator 100 06/23/20 14:00 34 Mechanical Ventilator 100 06/23/20 14:00 105 34 95 06/23/20 13:34 Mechanical Ventilator 100 06/23/20 13:30 109 33 120/69 (86) 96 06/23/20 13:23 117 30 100 06/23/20 13:00 106 37 111/70 (84) 97 06/23/20 13:00 106 37 111/70 (84) 97 06/23/20 12:30 106 32 103/71 (82) 97 06/23/20 12:00 106 33 96/58 (71) 97 06/23/20 12:00 100 06/23/20 12:00 98.0 106 33 96/58 (71) 97 06/23/20 12:00 Mechanical Ventilator Mechanical Ventilator 06/23/20 12:00 33 Mechanical Ventilator 100 06/23/20 12:00 98 06/23/20 11:30 105 30 100/66 (77) 96 06/23/20 11:26 115 29 100 06/23/20 11:00 29 Mechanical Ventilator 100 06/23/20 11:00 101 29 104/71 (82) 94 06/23/20 11:00 101 29 104/71 (82) 94 06/23/20 10:30 100 30 117/72 (87) 94 06/23/20 10:00 95 35 137/87 (104) 88 06/23/20 10:00 31 Mechanical Ventilator 100 06/23/20 10:00 101 31 113/85 (94) 93 06/23/20 10:00 101 31 93 06/23/20 09:30 98 31 122/81 (95) 94 06/23/20 09:30 98 31 122/81 (95) 94 06/23/20 09:22 110 32 100 06/23/20 09:00 98 35 135/79 (97) 88 06/23/20 09:00 98 35 135/79 (97) 88 06/23/20 09:00 35 Mechanical Ventilator 100 06/23/20 09:00 98 35 135/79 (97) 88 06/23/20 09:00 98 35 135/79 (97) 88 06/23/20 09:00 95 35 137/87 (104) 88 06/23/20 08:30 93 33 141/85 (103) 85 06/23/20 08:30 93 33 141/85 (103) 85 06/23/20 08:30 93 33 141/85 (103) 85 06/23/20 08:00 96 34 89 06/23/20 08:00 96 34 89 06/23/20 08:00 100 06/23/20 08:00 98 06/23/20 08:00 34 Mechanical Ventilator 100 06/23/20 08:00 97.6 98 34 130/85 (100) 95 06/23/20 08:00 96 34 141/92 (108) 89 06/23/20 08:00 96 34 141/92 (108) 89 06/23/20 08:00 Mechanical Ventilator Mechanical Ventilator 06/23/20 07:30 95 31 133/85 (101) 93 06/23/20 07:30 95 31 133/85 (101) 93 06/23/20 07:30 95 31 133/85 (101) 93 06/23/20 07:21 96 33 100 Intake and Output 06/24/20 06/25/20 19:00 07:00 Intake Total 446 ml 880 ml Output Total 495 ml 680 ml Balance -49 ml 200 ml IV Total 426 ml 880 ml Other 20 ml Output Urine Total 495 ml 680 ml # Bowel Movements 3 3 Labs Test 06/22/20 07:35 06/22/20 11:37 06/22/20 17:47 06/22/20 23:07 Arterial Blood pH 7.469 (7.350-7.450) Arterial Blood Partial Pressure CO2 54.6 mmHg (35.0-45.0) Arterial Blood Partial Pressure O2 46.7 mmHg (75.0-100.0) Arterial Blood HCO3 38.8 mmol/L (22.0-26.0) Arterial Blood Oxygen Saturation 82.8 % (95-100) Arterial Blood Base Excess 13.4 (-2-2) Jeremiah Test Positive POC Whole Blood Glucose 130 MG/DL (74-106) 103 MG/DL (74-106) Test 06/23/20 05:08 06/23/20 05:31 06/23/20 08:13 06/23/20 12:16 POC Whole Blood Glucose 104 MG/DL (74-106) 117 MG/DL (74-106) White Blood Count 7.7 K/UL (4.8-10.8) Red Blood Count 3.09 M/UL (4.20-5.40) Hemoglobin 9.0 G/DL (12.0-16.0) Hematocrit 28.2 % (37.0-47.0) Mean Corpuscular Volume 92 FL (80-99) Mean Corpuscular Hemoglobin 29.1 PG (27.0-31.0) Mean Corpuscular Hemoglobin Concent 31.8 G/DL (32.0-36.0) Red Cell Distribution Width 16.2 % (11.6-14.8) Platelet Count 212 K/UL (150-450) Mean Platelet Volume 7.4 FL (6.5-10.1) Neutrophils (%) (Auto) 75.1 % (45.0-75.0) Lymphocytes (%) (Auto) 9.6 % (20.0-45.0) Monocytes (%) (Auto) 5.4 % (1.0-10.0) Eosinophils (%) (Auto) 7.8 % (0.0-3.0) Basophils (%) (Auto) 2.2 % (0.0-2.0) Sodium Level 142 MMOL/L (136-145) Potassium Level 3.7 MMOL/L (3.5-5.1) Chloride Level 101 MMOL/L (98-107) Carbon Dioxide Level 34 MMOL/L (21-32) Anion Gap 7 mmol/L (5-15) Blood Urea Nitrogen 23 mg/dL (7-18) Creatinine 0.5 MG/DL (0.55-1.30) Estimat Glomerular Filtration Rate > 60 mL/min (>60) Glucose Level 102 MG/DL (74-106) Calcium Level 8.8 MG/DL (8.5-10.1) Phosphorus Level 3.8 MG/DL (2.5-4.9) Magnesium Level 1.8 MG/DL (1.8-2.4) Total Bilirubin 1.2 MG/DL (0.2-1.0) Direct Bilirubin 0.2 MG/DL (0.0-0.3) Aspartate Amino Transf (AST/SGOT) 32 U/L (15-37) Alanine Aminotransferase (ALT/SGPT) 18 U/L (12-78) Alkaline Phosphatase 84 U/L (46-116) C-Reactive Protein, Quantitative 21.3 mg/dL (0.00-0.90) Pro-B-Type Natriuretic Peptide 1376 pg/mL (0-125) Total Protein 6.7 G/DL (6.4-8.2) Albumin 1.9 G/DL (3.4-5.0) Globulin 4.8 g/dL Albumin/Globulin Ratio 0.4 (1.0-2.7) Arterial Blood pH 7.444 (7.350-7.450) Arterial Blood Partial Pressure CO2 51.2 mmHg (35.0-45.0) Arterial Blood Partial Pressure O2 49.8 mmHg (75.0-100.0) Arterial Blood HCO3 34.3 mmol/L (22.0-26.0) Arterial Blood Oxygen Saturation 82.3 % (95-100) Arterial Blood Base Excess 9.0 (-2-2) Jeremiah Test Positive Test 06/23/20 18:27 06/23/20 23:55 06/24/20 05:34 06/24/20 05:59 POC Whole Blood Glucose 114 MG/DL (74-106) 115 MG/DL (74-106) 97 MG/DL (74-106) White Blood Count 5.9 K/UL (4.8-10.8) Red Blood Count 3.46 M/UL (4.20-5.40) Hemoglobin 9.9 G/DL (12.0-16.0) Hematocrit 31.9 % (37.0-47.0) Mean Corpuscular Volume 92 FL (80-99) Mean Corpuscular Hemoglobin 28.7 PG (27.0-31.0) Mean Corpuscular Hemoglobin Concent 31.1 G/DL (32.0-36.0) Red Cell Distribution Width 16.5 % (11.6-14.8) Platelet Count 211 K/UL (150-450) Mean Platelet Volume 7.7 FL (6.5-10.1) Neutrophils (%) (Auto) 73.7 % (45.0-75.0) Lymphocytes (%) (Auto) 14.1 % (20.0-45.0) Monocytes (%) (Auto) 3.8 % (1.0-10.0) Eosinophils (%) (Auto) 7.4 % (0.0-3.0) Basophils (%) (Auto) 1.0 % (0.0-2.0) Sodium Level 143 MMOL/L (136-145) Potassium Level 3.8 MMOL/L (3.5-5.1) Chloride Level 102 MMOL/L (98-107) Carbon Dioxide Level 36 MMOL/L (21-32) Anion Gap 5 mmol/L (5-15) Blood Urea Nitrogen 26 mg/dL (7-18) Creatinine 0.6 MG/DL (0.55-1.30) Estimat Glomerular Filtration Rate > 60 mL/min (>60) Glucose Level 100 MG/DL (74-106) Calcium Level 9.3 MG/DL (8.5-10.1) Phosphorus Level 3.7 MG/DL (2.5-4.9) Magnesium Level 1.8 MG/DL (1.8-2.4) Total Bilirubin 1.4 MG/DL (0.2-1.0) Direct Bilirubin 0.2 MG/DL (0.0-0.3) Aspartate Amino Transf (AST/SGOT) 31 U/L (15-37) Alanine Aminotransferase (ALT/SGPT) 20 U/L (12-78) Alkaline Phosphatase 80 U/L (46-116) Total Protein 7.0 G/DL (6.4-8.2) Albumin 2.0 G/DL (3.4-5.0) Globulin 5.0 g/dL Albumin/Globulin Ratio 0.4 (1.0-2.7) Test 06/24/20 07:20 06/24/20 13:40 06/24/20 18:12 2/1/21 23:22 Arterial Blood pH 7.425 (7.350-7.450) Arterial Blood Partial Pressure CO2 56.7 mmHg (35.0-45.0) Arterial Blood Partial Pressure O2 70.9 mmHg (75.0-100.0) Arterial Blood HCO3 36.4 mmol/L (22.0-26.0) Arterial Blood Oxygen Saturation 92.7 % (95-100) Arterial Blood Base Excess 10.5 (-2-2) Jeremiah Test Positive POC Whole Blood Glucose 127 MG/DL (74-106) 105 MG/DL (74-106) 117 MG/DL (74-106) Test 06/25/20 04:15 06/25/20 06:01 White Blood Count 7.4 K/UL (4.8-10.8) Red Blood Count 3.06 M/UL (4.20-5.40) Hemoglobin 8.7 G/DL (12.0-16.0) Hematocrit 28.1 % (37.0-47.0) Mean Corpuscular Volume 92 FL (80-99) Mean Corpuscular Hemoglobin 28.4 PG (27.0-31.0) Mean Corpuscular Hemoglobin Concent 30.9 G/DL (32.0-36.0) Red Cell Distribution Width 16.8 % (11.6-14.8) Platelet Count 210 K/UL (150-450) Mean Platelet Volume 7.3 FL (6.5-10.1) Neutrophils (%) (Auto) 74.0 % (45.0-75.0) Lymphocytes (%) (Auto) 13.0 % (20.0-45.0) Monocytes (%) (Auto) 5.1 % (1.0-10.0) Eosinophils (%) (Auto) 6.4 % (0.0-3.0) Basophils (%) (Auto) 1.4 % (0.0-2.0) Sodium Level 144 MMOL/L (136-145) Potassium Level 3.6 MMOL/L (3.5-5.1) Chloride Level 105 MMOL/L (98-107) Carbon Dioxide Level 33 MMOL/L (21-32) Anion Gap 7 mmol/L (5-15) Blood Urea Nitrogen 23 mg/dL (7-18) Creatinine 0.5 MG/DL (0.55-1.30) Estimat Glomerular Filtration Rate > 60 mL/min (>60) Glucose Level 107 MG/DL (74-106) Calcium Level 9.1 MG/DL (8.5-10.1) POC Whole Blood Glucose 123 MG/DL (74-106) Height (Feet): 5 Height (Inches): 5.00 Weight (Pounds): 308 Objective GeNL: nv Pulm: vent++ CV: rrr Abd: soft, nt, nd Ext: no cce Myron Condon MD Jun 25, 2020 07:05
--- NOTE | 2020-06-25 07:30 | NUR ---
NURSE NOTES: Received report from Geri Limon RN. BP WNL. Intubated and lightly sedated RASS -2. NGT in place, tube feeding held at this time. Skin intact. Rectal tube in place with light brown output. Lennon cath inplace. Airborne isolation observed. Will continue plan of care.
[2020-06-25] MEDS: Pantoprazole Inj IVP SCH ×2 (09:11→20:44)
[2020-06-25] MEDS: Enoxaparin 40mg Inj SUBQ SCH (09:11)
[2020-06-25] MEDS: Docusate 100mg/10ml Liq GT SCH ×2 (09:11→20:44)
--- NOTE | 2020-06-25 10:52 | Nephrology Progress Note ---
Assessment/Plan Problem List: (1) DEVENDRA (acute kidney injury) (2) Morbid obesity (3) Diabetes mellitus out of control (4) Pneumonia due to COVID-19 virus (5) Respiratory failure Assessment Acute renal failure Obstructive uropathy, clogged Lennon Respiratory failure COVID-19 pneumonia Morbid obesity Plan June 25: Labs reviewed. Renal parameters stable. Remains full code. Due to positional status patient could not be fed via NG tube. Starting TPN? Is being entertained. Continue per consultants. June 24: Labs reviewed. Renal parameters stable. Remains full code. Remains intubated on ventilator. Continue per consultants. June 23: Labs reviewed. Renal parameters stable. Discussed with RN. Abnormal electrolyte addressed. Remains full code. Remains on ventilator. Continue per consultants. June 22: Labs reviewed. Low potassium addressed. Discussed with RAKEL Moran. Patient full code. Remains on ventilator. Continue to monitor renal parameters. June 21. Labs reviewed. Abnormal electrolyte addressed. Full code. Remains on ventilator. Medication list reviewed. Continue per pulmonary management. DC IV fluid, resume Lasix daily, check chest x-ray. June 20: Labs reviewed. Abnormal electrolytes. Patient remains full code. Continue per consultants. Noted and addressed June 19: Labs reviewed. Abnormal electrolytes noted and addressed. Remains intubated on ventilator. Remains full code. June 18: Labs reviewed. Remains intubated on ventilator. Full code. Abnormal electrolyte addressed. Continue as is. June 17: Labs reviewed. Abnormal electrolytes addressed. Patient remains full code and intubated on ventilator. Continue per consultants. Renal parameters are within normal limits. June 16: Labs reviewed. Potassium chloride replaced. Remains full code. Remains intubated on ventilator. Continue per consultants. Continue to monitor renal parameters. June 15: Labs reviewed. Serum creatinine 1. Stable from renal standpoint to view. Continue per consultants. June 14: Labs reviewed. Full code. Serum creatinine of 3.5 down to 1.4. Low potassium addressed. Continue per current treatment plan. Continue to monitor renal parameters. Midodrine started. Albumin bolus given. Previously: DC Lasix drip Increase Protonix dose Monitor renal parameters, electrolytes Per orders Subjective ROS Limited/Unobtainable: Yes Objective Objective Last 24 Hour Vital Signs Date Time Temp Pulse Resp B/P (MAP) Pulse Ox O2 Delivery O2 Flow Rate FiO2 06/25/20 08:45 90 06/25/20 08:18 90 06/25/20 08:12 96 06/25/20 08:00 98.1 98 30 104/78 (87) 96 06/25/20 08:00 Mechanical Ventilator Mechanical Ventilator 06/25/20 08:00 100 06/25/20 07:38 29 Mechanical Ventilator 100 06/25/20 07:10 95 29 100 06/25/20 07:00 97 29 112/72 (85) 97 06/25/20 06:57 33 Mechanical Ventilator 100 06/25/20 06:30 94 22 06/25/20 06:00 99 31 118/79 (92) 96 06/25/20 05:57 23 Mechanical Ventilator 100 06/25/20 05:19 101 30 100 06/25/20 05:00 99 31 111/81 (91) 99 06/25/20 04:57 30 Mechanical Ventilator 06/25/20 04:00 Mechanical Ventilator Mechanical Ventilator 06/25/20 04:00 100 06/25/20 04:00 97.5 96 27 115/78 (90) 97 06/25/20 04:00 97 06/25/20 03:57 22 Mechanical Ventilator 100 06/25/20 03:18 100 28 100 06/25/20 03:00 97 30 116/74 (88) 96 06/25/20 02:57 28 100 06/25/20 02:00 92 27 99/58 (72) 97 06/25/20 01:57 26 Mechanical Ventilator 100 06/25/20 01:00 95 0 100/59 (73) 99 06/25/20 00:59 92 27 100 06/25/20 00:57 16 Mechanical Ventilator 100 06/25/20 00:11 24 100 06/25/20 00:01 27 100 06/25/20 00:00 100 06/25/20 00:00 93 06/25/20 00:00 98.7 92 24 104/66 (79) 99 06/25/20 00:00 Mechanical Ventilator Mechanical Ventilator 06/24/20 23:57 29 Mechanical Ventilator 100 06/24/20 23:10 94 28 100 06/24/20 23:00 93 27 108/72 (84) 98 06/24/20 22:57 24 Mechanical Ventilator 100 06/24/20 22:00 99 29 102/66 (78) 100 06/24/20 21:57 25 Mechanical Ventilator 100 06/24/20 21:20 106 27 100 06/24/20 21:00 98 26 103/69 (80) 99 06/24/20 20:57 23 Mechanical Ventilator 100 06/24/20 20:00 Mechanical Ventilator Mechanical Ventilator 06/24/20 20:00 98.7 99 27 100/63 (75) 100 06/24/20 20:00 110 06/24/20 20:00 100 06/24/20 19:57 23 Mechanical Ventilator 100 06/24/20 19:10 106 26 100 06/24/20 19:00 107 27 99/61 (74) 100 06/24/20 18:57 Mechanical Ventilator 06/24/20 18:30 105 27 93/56 (68) 100 06/24/20 18:15 103 24 93/56 (68) 100 06/24/20 18:00 104 27 85/54 (64) 100 06/24/20 17:57 Mechanical Ventilator 06/24/20 17:21 98 28 100 06/24/20 17:00 100 29 103/64 (77) 97 06/24/20 16:57 Mechanical Ventilator 06/24/20 16:30 93 25 83/56 (65) 99 06/24/20 16:21 Mechanical Ventilator 06/24/20 16:00 100 06/24/20 16:00 95 06/24/20 16:00 98.8 91 24 93/58 (70) 99 06/24/20 16:00 Mechanical Ventilator Mechanical Ventilator 06/24/20 15:30 89 26 100/58 (72) 99 06/24/20 15:21 Mechanical Ventilator 06/24/20 15:20 89 24 100 06/24/20 15:00 91 24 106/66 (79) 98 06/24/20 14:30 88 24 97/58 (71) 100 06/24/20 14:21 Mechanical Ventilator 06/24/20 14:00 87 23 93/62 (72) 97 06/24/20 13:30 88 26 99/66 (77) 99 06/24/20 13:30 86 25 100 06/24/20 13:21 Mechanical Ventilator 06/24/20 13:00 91 28 105/72 (83) 98 06/24/20 12:30 92 26 100/64 (76) 98 06/24/20 12:21 Mechanical Ventilator 06/24/20 12:00 Mechanical Ventilator Mechanical Ventilator 06/24/20 12:00 97.0 93 27 101/65 (77) 99 06/24/20 12:00 94 06/24/20 12:00 100 06/24/20 11:30 85 24 101/67 (78) 97 06/24/20 11:21 Mechanical Ventilator 06/24/20 11:09 90 23 96/63 (74) 99 06/24/20 11:02 89 22 100 06/24/20 11:00 90 21 88/55 (66) 99 Intake and Output 06/24/20 06/25/20 19:00 07:00 Intake Total 446 ml 960 ml Output Total 495 ml 705 ml Balance -49 ml 255 ml IV Total 426 ml 960 ml Other 20 ml Output Urine Total 495 ml 705 ml # Bowel Movements 3 3 Laboratory Tests 06/24/20 13:40: POC Whole Blood Glucose 127H 06/24/20 18:12: POC Whole Blood Glucose 105 06/24/20 23:22: POC Whole Blood Glucose 117H 06/25/20 04:15: White Blood Count 7.4, Red Blood Count 3.06L, Hemoglobin 8.7L, Hematocrit 28.1L, Mean Corpuscular Volume 92, Mean Corpuscular Hemoglobin 28.4, Mean Corpuscular Hemoglobin Concent 30.9L, Red Cell Distribution Width 16.8H, Platelet Count 210, Mean Platelet Volume 7.3, Neutrophils (%) (Auto) 74.0, Lymphocytes (%) (Auto) 13.0L, Monocytes (%) (Auto) 5.1, Eosinophils (%) (Auto) 6.4H, Basophils (%) (Auto) 1.4, Sodium Level 144, Potassium Level 3.6, Chloride Level 105, Carbon Dioxide Level 33H, Anion Gap 7, Blood Urea Nitrogen 23H, Creatinine 0.5L, Estimat Glomerular Filtration Rate > 60, Glucose Level 107H, Calcium Level 9.1 06/25/20 06:01: POC Whole Blood Glucose 123H 06/25/20 09:46: Arterial Blood pH 7.432, Arterial Blood Partial Pressure CO2 48.9H, Arterial Blood Partial Pressure O2 69.2L, Arterial Blood HCO3 31.9H, Arterial Blood Oxygen Saturation 92.2L, Arterial Blood Base Excess 6.7H, Jeremiah Test Positive Height (Feet): 5 Height (Inches): 5.00 Weight (Pounds): 308 General Appearance: no apparent distress Cardiovascular: tachycardia Respiratory/Chest: decreased breath sounds Abdomen: distended Rigo Tyler MD Jun 25, 2020 10:52
--- NOTE | 2020-06-25 10:54 | NUR ---
NURSE NOTES: Dr. [place] at bedside. Informed that patient's vent settings FiO2 is now 90%, informed latest ABg results. Dr. Nava ordered to have bioethics to be involved to call family to change resuscitation status.
--- NOTE | 2020-06-25 11:29 | NUR ---
OR[facility]LE [facility] ARCHITECT NOTE HEMANTH spoke w/ the niece, Ericka [phone] that the family has more questions in regards to tracheostomy. SW provided the Dr. Nava's office number for Ericka to reach out. DCM also informed the Dr. Nava. Pt has siblings and Ericka has been relaying and interpreting all relevant information. Reji Santana (brother- monolingual [place]ger) [phone] Addendum: 06/25/20 at 1132 by MIRELLA SAXENA Reji Santana (brother) [phone] [facility] [phone]
--- NOTE | 2020-06-25 11:31 | NUR ---
RUBEN NELSON (BROTHER MONOLINGUAL SERBIAN) [phone]
--- NOTE | 2020-06-25 12:53 | Infectious Diseases Prog Note ---
Assessment/Plan Assessment/Plan A 1. COVID19 pneumonia 2. Hypoxic respiratory failure 3. Morbid obesity 4. DM type with hyperglycemia 5. Thrombocytopenia 6. leukocytosis resolved 7. Serratia pneumonia treated 8. Anemia P 1. Finished remdesivir course 2. Case was RN Subjective ROS Limited/Unobtainable: Yes Constitutional: Denies: fever Allergies: Coded Allergies: No Known Allergies (Unverified , 05/28/20) Objective Last 24 Hour Vital Signs Date Time Temp Pulse Resp B/P (MAP) Pulse Ox O2 Delivery O2 Flow Rate FiO2 06/25/20 12:20 80 06/25/20 12:00 Mechanical Ventilator Mechanical Ventilator 06/25/20 12:00 99.0 119 41 102/59 (73) 100 06/25/20 12:00 90 06/25/20 11:00 107 31 95/55 (68) 98 06/25/20 10:30 109 33 104/63 (77) 99 06/25/20 10:00 106 33 102/63 (76) 98 06/25/20 09:30 106 27 107/67 (80) 97 06/25/20 09:00 102 31 108/68 (81) 99 06/25/20 08:45 90 06/25/20 08:18 90 06/25/20 08:12 96 06/25/20 08:00 98.1 98 30 104/78 (87) 96 06/25/20 08:00 Mechanical Ventilator Mechanical Ventilator 06/25/20 08:00 100 06/25/20 07:38 29 Mechanical Ventilator 100 06/25/20 07:10 95 29 100 06/25/20 07:00 97 29 112/72 (85) 97 06/25/20 06:57 33 Mechanical Ventilator 100 06/25/20 06:30 94 22 06/25/20 06:00 99 31 118/79 (92) 96 06/25/20 05:57 23 Mechanical Ventilator 100 06/25/20 05:19 101 30 100 06/25/20 05:00 99 31 111/81 (91) 99 06/25/20 04:57 30 Mechanical Ventilator 06/25/20 04:00 Mechanical Ventilator Mechanical Ventilator 06/25/20 04:00 100 06/25/20 04:00 97.5 96 27 115/78 (90) 97 06/25/20 04:00 97 06/25/20 03:57 22 Mechanical Ventilator 100 06/25/20 03:18 100 28 100 06/25/20 03:00 97 30 116/74 (88) 96 06/25/20 02:57 28 100 06/25/20 02:00 92 27 99/58 (72) 97 06/25/20 01:57 26 Mechanical Ventilator 100 06/25/20 01:00 95 0 100/59 (73) 99 06/25/20 00:59 92 27 100 06/25/20 00:57 16 Mechanical Ventilator 100 06/25/20 00:11 24 100 06/25/20 00:01 27 100 06/25/20 00:00 100 06/25/20 00:00 93 06/25/20 00:00 98.7 92 24 104/66 (79) 99 06/25/20 00:00 Mechanical Ventilator Mechanical Ventilator 06/24/20 23:57 29 Mechanical Ventilator 100 06/24/20 23:10 94 28 100 06/24/20 23:00 93 27 108/72 (84) 98 06/24/20 22:57 24 Mechanical Ventilator 100 06/24/20 22:00 99 29 102/66 (78) 100 06/24/20 21:57 25 Mechanical Ventilator 100 06/24/20 21:20 106 27 100 06/24/20 21:00 98 26 103/69 (80) 99 06/24/20 20:57 23 Mechanical Ventilator 100 06/24/20 20:00 Mechanical Ventilator Mechanical Ventilator 06/24/20 20:00 98.7 99 27 100/63 (75) 100 06/24/20 20:00 110 06/24/20 20:00 100 06/24/20 19:57 23 Mechanical Ventilator 100 06/24/20 19:10 106 26 100 06/24/20 19:00 107 27 99/61 (74) 100 06/24/20 18:57 Mechanical Ventilator 06/24/20 18:30 105 27 93/56 (68) 100 06/24/20 18:15 103 24 93/56 (68) 100 06/24/20 18:00 104 27 85/54 (64) 100 06/24/20 17:57 Mechanical Ventilator 06/24/20 17:21 98 28 100 06/24/20 17:00 100 29 103/64 (77) 97 06/24/20 16:57 Mechanical Ventilator 06/24/20 16:30 93 25 83/56 (65) 99 06/24/20 16:21 Mechanical Ventilator 06/24/20 16:00 100 06/24/20 16:00 95 06/24/20 16:00 98.8 91 24 93/58 (70) 99 06/24/20 16:00 Mechanical Ventilator Mechanical Ventilator 06/24/20 15:30 89 26 100/58 (72) 99 06/24/20 15:21 Mechanical Ventilator 06/24/20 15:20 89 24 100 06/24/20 15:00 91 24 106/66 (79) 98 06/24/20 14:30 88 24 97/58 (71) 100 06/24/20 14:21 Mechanical Ventilator 06/24/20 14:00 87 23 93/62 (72) 97 06/24/20 13:30 88 26 99/66 (77) 99 06/24/20 13:30 86 25 100 06/24/20 13:21 Mechanical Ventilator 06/24/20 13:00 91 28 105/72 (83) 98 Height (Feet): 5 Height (Inches): 5.00 Weight (Pounds): 308 HEENT: other - orally intubated Respiratory/Chest: other - on ventilator, FIO2=80% Cardiovascular: tachycardia, other - R arm PICC line Abdomen: soft, non tender Extremities: other - edema Neurologic/Psychiatric: other - sedated Laboratory Tests Test 06/24/20 13:40 06/24/20 18:12 06/24/20 23:22 06/25/20 04:15 POC Whole Blood Glucose 127 MG/DL (74-106) H 105 MG/DL (74-106) 117 MG/DL (74-106) H White Blood Count 7.4 K/UL (4.8-10.8) Red Blood Count 3.06 M/UL (4.20-5.40) L Hemoglobin 8.7 G/DL (12.0-16.0) L Hematocrit 28.1 % (37.0-47.0) L Mean Corpuscular Volume 92 FL (80-99) Mean Corpuscular Hemoglobin 28.4 PG (27.0-31.0) Mean Corpuscular Hemoglobin Concent 30.9 G/DL (32.0-36.0) L Red Cell Distribution Width 16.8 % (11.6-14.8) H Platelet Count 210 K/UL (150-450) Mean Platelet Volume 7.3 FL (6.5-10.1) Neutrophils (%) (Auto) 74.0 % (45.0-75.0) Lymphocytes (%) (Auto) 13.0 % (20.0-45.0) L Monocytes (%) (Auto) 5.1 % (1.0-10.0) Eosinophils (%) (Auto) 6.4 % (0.0-3.0) H Basophils (%) (Auto) 1.4 % (0.0-2.0) Sodium Level 144 MMOL/L (136-145) Potassium Level 3.6 MMOL/L (3.5-5.1) Chloride Level 105 MMOL/L (98-107) Carbon Dioxide Level 33 MMOL/L (21-32) H Anion Gap 7 mmol/L (5-15) Blood Urea Nitrogen 23 mg/dL (7-18) H Creatinine 0.5 MG/DL (0.55-1.30) L Estimat Glomerular Filtration Rate > 60 mL/min (>60) Glucose Level 107 MG/DL (74-106) H Calcium Level 9.1 MG/DL (8.5-10.1) Test 06/25/20 06:01 06/25/20 09:46 POC Whole Blood Glucose 123 MG/DL (74-106) H Arterial Blood pH 7.432 (7.350-7.450) Arterial Blood Partial Pressure CO2 48.9 mmHg (35.0-45.0) H Arterial Blood Partial Pressure O2 69.2 mmHg (75.0-100.0) L Arterial Blood HCO3 31.9 mmol/L (22.0-26.0) H Arterial Blood Oxygen Saturation 92.2 % (95-100) L Arterial Blood Base Excess 6.7 (-2-2) H Jeremiah Test Positive Current Medications Medications (Trade) Dose Ordered Sig/Zelda Route PRN Reason Start Time Stop Time Status Last Admin Dose Admin Acetaminophen (Tylenol) 650 mg Q4H PRN NG Temp >100.5 05/31/20 21:45 06/30/20 21:44 06/21/20 12:19 Acetaminophen (Tylenol) 650 mg Q6H PRN NG Mild Pain (Pain Scale 1-3) 06/06/20 18:00 07/06/20 17:59 06/13/20 23:10 Chlorhexidine Gluconate (Inna-Hex 2%) 1 applic DAILY@2000 TOPIC 05/30/20 20:00 08/28/20 19:59 06/24/20 20:09 Dextrose (Dextrose 50%) 25 ml Q30M PRN IV Hypoglycemia 06/05/20 10:45 09/03/20 10:44 Dextrose (Dextrose 50%) 50 ml Q30M PRN IV Hypoglycemia 06/05/20 10:45 09/03/20 10:44 Dextrose/Sodium Chloride 1,000 ml @ 50 mls/hr Q20H IV 06/24/20 16:30 07/24/20 16:29 06/24/20 16:57 Docusate Sodium (Colace) 100 mg Q12HR GT 06/07/20 21:00 07/07/20 20:59 06/25/20 09:11 Enoxaparin Sodium (Lovenox) 40 mg DAILY SUBQ 05/30/20 10:00 08/28/20 09:59 06/25/20 09:11 Furosemide (Lasix) 40 mg DAILY IV 06/22/20 09:00 07/22/20 08:59 06/25/20 09:11 Insulin Aspart (NovoLOG) EVERY 6 HOURS SUBQ 06/07/20 00:00 09/03/20 11:59 06/24/20 18:00 Midazolam HCl 100 mg/Sodium Chloride 200 ml @ 0 mls/hr Q24H PRN IV SEDATION 06/25/20 13:30 06/27/20 13:29 Midodrine (Pro-Amatine) 10 mg Q8HR ORAL 06/14/20 14:00 09/12/20 13:59 06/25/20 06:09 Pantoprazole (Protonix) 40 mg Q12HR IVP 06/13/20 21:00 07/03/20 08:59 06/25/20 09:11 Polyethylene Glycol (Miralax) 17 gm BEDTIME GT 06/07/20 21:00 07/07/20 20:59 06/17/20 21:02 Colt Arana MD Jun 25, 2020 12:53
[2020-06-25] MEDS: D5 1/2NS 1,000 ML IV SCH (12:59)
--- NOTE | 2020-06-25 13:07 | Surgery Progress Note ---
Surgery Progress Note Subjective Additional Comments on support weaned fi02 down to 80% peep at 7 ill appearing Objective Last 24 Hour Vital Signs Date Time Temp Pulse Resp B/P (MAP) Pulse Ox O2 Delivery O2 Flow Rate FiO2 06/25/20 12:20 80 06/25/20 12:00 Mechanical Ventilator Mechanical Ventilator 06/25/20 12:00 99.0 119 41 102/59 (73) 100 06/25/20 12:00 90 06/25/20 11:00 107 31 95/55 (68) 98 06/25/20 10:30 109 33 104/63 (77) 99 06/25/20 10:00 106 33 102/63 (76) 98 06/25/20 09:30 106 27 107/67 (80) 97 06/25/20 09:00 102 31 108/68 (81) 99 06/25/20 08:45 90 06/25/20 08:18 90 06/25/20 08:12 96 06/25/20 08:00 98.1 98 30 104/78 (87) 96 06/25/20 08:00 Mechanical Ventilator Mechanical Ventilator 06/25/20 08:00 100 06/25/20 07:38 29 Mechanical Ventilator 100 06/25/20 07:10 95 29 100 06/25/20 07:00 97 29 112/72 (85) 97 06/25/20 06:57 33 Mechanical Ventilator 100 06/25/20 06:30 94 22 06/25/20 06:00 99 31 118/79 (92) 96 06/25/20 05:57 23 Mechanical Ventilator 100 06/25/20 05:19 101 30 100 06/25/20 05:00 99 31 111/81 (91) 99 06/25/20 04:57 30 Mechanical Ventilator 06/25/20 04:00 Mechanical Ventilator Mechanical Ventilator 06/25/20 04:00 100 06/25/20 04:00 97.5 96 27 115/78 (90) 97 06/25/20 04:00 97 06/25/20 03:57 22 Mechanical Ventilator 100 06/25/20 03:18 100 28 100 06/25/20 03:00 97 30 116/74 (88) 96 06/25/20 02:57 28 100 06/25/20 02:00 92 27 99/58 (72) 97 06/25/20 01:57 26 Mechanical Ventilator 100 06/25/20 01:00 95 0 100/59 (73) 99 06/25/20 00:59 92 27 100 06/25/20 00:57 16 Mechanical Ventilator 100 06/25/20 00:11 24 100 06/25/20 00:01 27 100 06/25/20 00:00 100 06/25/20 00:00 93 06/25/20 00:00 98.7 92 24 104/66 (79) 99 06/25/20 00:00 Mechanical Ventilator Mechanical Ventilator 06/24/20 23:57 29 Mechanical Ventilator 100 06/24/20 23:10 94 28 100 06/24/20 23:00 93 27 108/72 (84) 98 06/24/20 22:57 24 Mechanical Ventilator 100 06/24/20 22:00 99 29 102/66 (78) 100 06/24/20 21:57 25 Mechanical Ventilator 100 06/24/20 21:20 106 27 100 06/24/20 21:00 98 26 103/69 (80) 99 06/24/20 20:57 23 Mechanical Ventilator 100 06/24/20 20:00 Mechanical Ventilator Mechanical Ventilator 06/24/20 20:00 98.7 99 27 100/63 (75) 100 06/24/20 20:00 110 06/24/20 20:00 100 06/24/20 19:57 23 Mechanical Ventilator 100 06/24/20 19:10 106 26 100 06/24/20 19:00 107 27 99/61 (74) 100 06/24/20 18:57 Mechanical Ventilator 06/24/20 18:30 105 27 93/56 (68) 100 06/24/20 18:15 103 24 93/56 (68) 100 06/24/20 18:00 104 27 85/54 (64) 100 06/24/20 17:57 Mechanical Ventilator 06/24/20 17:21 98 28 100 06/24/20 17:00 100 29 103/64 (77) 97 06/24/20 16:57 Mechanical Ventilator 06/24/20 16:30 93 25 83/56 (65) 99 06/24/20 16:21 Mechanical Ventilator 06/24/20 16:00 100 06/24/20 16:00 95 06/24/20 16:00 98.8 91 24 93/58 (70) 99 06/24/20 16:00 Mechanical Ventilator Mechanical Ventilator 06/24/20 15:30 89 26 100/58 (72) 99 06/24/20 15:21 Mechanical Ventilator 06/24/20 15:20 89 24 100 06/24/20 15:00 91 24 106/66 (79) 98 06/24/20 14:30 88 24 97/58 (71) 100 06/24/20 14:21 Mechanical Ventilator 06/24/20 14:00 87 23 93/62 (72) 97 06/24/20 13:30 88 26 99/66 (77) 99 06/24/20 13:30 86 25 100 06/24/20 13:21 Mechanical Ventilator I&O Intake and Output 06/24/20 06/25/20 19:00 07:00 Intake Total 446 ml 960 ml Output Total 495 ml 705 ml Balance -49 ml 255 ml IV Total 426 ml 960 ml Other 20 ml Output Urine Total 495 ml 705 ml # Bowel Movements 3 3 Dressing: other Wound: other Cardiovascular: RSR Respiratory: decreased breath sounds Abdomen: soft, non-tender, non-distended, decreased bowel sounds Extremities: edema, no cyanosis Laboratory Tests Test 06/24/20 13:40 06/24/20 18:12 06/24/20 23:22 06/25/20 04:15 POC Whole Blood Glucose 127 MG/DL (74-106) H 105 MG/DL (74-106) 117 MG/DL (74-106) H White Blood Count 7.4 K/UL (4.8-10.8) Red Blood Count 3.06 M/UL (4.20-5.40) L Hemoglobin 8.7 G/DL (12.0-16.0) L Hematocrit 28.1 % (37.0-47.0) L Mean Corpuscular Volume 92 FL (80-99) Mean Corpuscular Hemoglobin 28.4 PG (27.0-31.0) Mean Corpuscular Hemoglobin Concent 30.9 G/DL (32.0-36.0) L Red Cell Distribution Width 16.8 % (11.6-14.8) H Platelet Count 210 K/UL (150-450) Mean Platelet Volume 7.3 FL (6.5-10.1) Neutrophils (%) (Auto) 74.0 % (45.0-75.0) Lymphocytes (%) (Auto) 13.0 % (20.0-45.0) L Monocytes (%) (Auto) 5.1 % (1.0-10.0) Eosinophils (%) (Auto) 6.4 % (0.0-3.0) H Basophils (%) (Auto) 1.4 % (0.0-2.0) Sodium Level 144 MMOL/L (136-145) Potassium Level 3.6 MMOL/L (3.5-5.1) Chloride Level 105 MMOL/L (98-107) Carbon Dioxide Level 33 MMOL/L (21-32) H Anion Gap 7 mmol/L (5-15) Blood Urea Nitrogen 23 mg/dL (7-18) H Creatinine 0.5 MG/DL (0.55-1.30) L Estimat Glomerular Filtration Rate > 60 mL/min (>60) Glucose Level 107 MG/DL (74-106) H Calcium Level 9.1 MG/DL (8.5-10.1) Test 06/25/20 06:01 06/25/20 09:46 POC Whole Blood Glucose 123 MG/DL (74-106) H Arterial Blood pH 7.432 (7.350-7.450) Arterial Blood Partial Pressure CO2 48.9 mmHg (35.0-45.0) H Arterial Blood Partial Pressure O2 69.2 mmHg (75.0-100.0) L Arterial Blood HCO3 31.9 mmol/L (22.0-26.0) H Arterial Blood Oxygen Saturation 92.2 % (95-100) L Arterial Blood Base Excess 6.7 (-2-2) H Jeremiah Test Positive Plan Problems: (1) Respiratory distress (2) Respiratory failure Assessment & Plan: 50-year-old female Covid positive respiratory insufficiency intubated on ventilatory support declining. Leukocytosis increase oxygen requirement. Vent settings per pulmonology reviewed identified and agree. Unfortunately further surgical invention at this time is not appropriate as patient is not a candidate and her current condition. Prognosis overall guarded. Tracheostomy can be considered in the future if recovering or shows improvement and requires unable to be weaned from ventilator support. Currently okay for nutritional optimization with NG tube. Will need significant monitoring for decubitus formation given patient's size and condition. Okay for air mattress tolerated. Turn every 2 hours as tolerated. Patient is otherwise critically ill and blood pressure labile. Will need to monitor closely.Bilateral infiltrates are again demonstrated. Stable tube and line positions. will need trach will need to wean vent first (3) Hypoxia (4) Pneumonia due to COVID-19 virus Assessment & Plan: ++ as per pulm and ID (5) Diabetes mellitus out of control Assessment & Plan: DAILY ESTIMATED NEEDS: Needs based on Critical care, obesity 11-14kcal/kg actual body wt (140kg) kcals/kg 0889-5533 total kcals 1.5-2.0g prot/kg IBW (64.5kg) g protein/kg 96-129 g total protein 25-30ml/kg abw (83kg) mL/kg 7244-4390 total fluid mLs NUTRITION DIAGNOSIS: Swallowing difficulty R/T respiratory failure as evidenced by pt orally intubated and sedated, on OGT feeds. CURRENT TF: Vital 1.2 goal of 60ml/hr ENTERAL NUTRITION RECOMMENDATIONS: Vital AF 1.2 @ 60ml/hr x 24 hrs to provide 1440ml, 1728kcal, 108g prot, 1168ml free water * Maintain current critical care and carb controlled TF formula of Vital AF * TF @ goal meeds 100% est kcal/prot needs * HOB over 30 degrees/ water flush per MD TF may be lowered to 55ml/hr for improved BG control while maintaining Kcal and pro needs. ADDITIONAL RECOMMENDATIONS: * Calibrated bedscale wt * Monitor Propofol rate, need for TF adjustment-> now off * Monitor BGs closely : now improved, on novolog q 6rs + NISS * Monitor lytes- K elevated, monitor need for TF change * Rec bowel regimen- now w/ rectal tube . Az Devine Jun 25, 2020 13:07
--- NOTE | 2020-06-25 13:42 | General Progress Note ---
Subjective Constitutional: Reports: weakness Allergies: Coded Allergies: No Known Allergies (Unverified , 05/28/20) All Systems: reviewed and negative except above Subjective intubated sedated ng in icu Objective Last 24 Hour Vital Signs Date Time Temp Pulse Resp B/P (MAP) Pulse Ox O2 Delivery O2 Flow Rate FiO2 06/25/20 13:00 110 32 116/77 (90) 98 06/25/20 13:00 32 Mechanical Ventilator 80 06/25/20 12:20 80 06/25/20 12:00 Mechanical Ventilator Mechanical Ventilator 06/25/20 12:00 41 Mechanical Ventilator 90 06/25/20 12:00 99.0 119 41 102/59 (73) 100 06/25/20 12:00 105 06/25/20 12:00 90 06/25/20 11:00 107 31 95/55 (68) 98 06/25/20 11:00 31 Mechanical Ventilator 90 06/25/20 10:30 109 33 104/63 (77) 99 06/25/20 10:00 33 Mechanical Ventilator 90 06/25/20 10:00 106 33 102/63 (76) 98 06/25/20 09:30 106 27 107/67 (80) 97 06/25/20 09:00 102 31 108/68 (81) 99 06/25/20 09:00 31 Mechanical Ventilator 90 06/25/20 08:45 90 06/25/20 08:18 90 06/25/20 08:12 96 06/25/20 08:00 98.1 98 30 104/78 (87) 96 06/25/20 08:00 Mechanical Ventilator Mechanical Ventilator 06/25/20 08:00 30 Mechanical Ventilator 100 06/25/20 08:00 100 06/25/20 07:38 29 Mechanical Ventilator 100 06/25/20 07:10 95 29 100 06/25/20 07:00 97 29 112/72 (85) 97 06/25/20 06:57 33 Mechanical Ventilator 100 06/25/20 06:30 94 22 06/25/20 06:00 99 31 118/79 (92) 96 06/25/20 05:57 23 Mechanical Ventilator 100 06/25/20 05:19 101 30 100 06/25/20 05:00 99 31 111/81 (91) 99 06/25/20 04:57 30 Mechanical Ventilator 06/25/20 04:00 Mechanical Ventilator Mechanical Ventilator 06/25/20 04:00 100 06/25/20 04:00 97.5 96 27 115/78 (90) 97 06/25/20 04:00 97 06/25/20 03:57 22 Mechanical Ventilator 100 06/25/20 03:18 100 28 100 06/25/20 03:00 97 30 116/74 (88) 96 06/25/20 02:57 28 100 06/25/20 02:00 92 27 99/58 (72) 97 06/25/20 01:57 26 Mechanical Ventilator 100 06/25/20 01:00 95 0 100/59 (73) 99 06/25/20 00:59 92 27 100 06/25/20 00:57 16 Mechanical Ventilator 100 06/25/20 00:11 24 100 06/25/20 00:01 27 100 06/25/20 00:00 100 06/25/20 00:00 93 06/25/20 00:00 98.7 92 24 104/66 (79) 99 06/25/20 00:00 Mechanical Ventilator Mechanical Ventilator 06/24/20 23:57 29 Mechanical Ventilator 100 06/24/20 23:10 94 28 100 06/24/20 23:00 93 27 108/72 (84) 98 06/24/20 22:57 24 Mechanical Ventilator 100 06/24/20 22:00 99 29 102/66 (78) 100 06/24/20 21:57 25 Mechanical Ventilator 100 06/24/20 21:20 106 27 100 06/24/20 21:00 98 26 103/69 (80) 99 06/24/20 20:57 23 Mechanical Ventilator 100 06/24/20 20:00 Mechanical Ventilator Mechanical Ventilator 06/24/20 20:00 98.7 99 27 100/63 (75) 100 06/24/20 20:00 110 06/24/20 20:00 100 06/24/20 19:57 23 Mechanical Ventilator 100 06/24/20 19:10 106 26 100 06/24/20 19:00 107 27 99/61 (74) 100 06/24/20 18:57 Mechanical Ventilator 06/24/20 18:30 105 27 93/56 (68) 100 06/24/20 18:15 103 24 93/56 (68) 100 06/24/20 18:00 104 27 85/54 (64) 100 06/24/20 17:57 Mechanical Ventilator 06/24/20 17:21 98 28 100 06/24/20 17:00 100 29 103/64 (77) 97 06/24/20 16:57 Mechanical Ventilator 06/24/20 16:30 93 25 83/56 (65) 99 06/24/20 16:21 Mechanical Ventilator 06/24/20 16:00 100 06/24/20 16:00 95 06/24/20 16:00 98.8 91 24 93/58 (70) 99 06/24/20 16:00 Mechanical Ventilator Mechanical Ventilator 06/24/20 15:30 89 26 100/58 (72) 99 06/24/20 15:21 Mechanical Ventilator 06/24/20 15:20 89 24 100 06/24/20 15:00 91 24 106/66 (79) 98 06/24/20 14:30 88 24 97/58 (71) 100 06/24/20 14:21 Mechanical Ventilator 06/24/20 14:00 87 23 93/62 (72) 97 Intake and Output 06/24/20 06/25/20 19:00 07:00 Intake Total 446 ml 960 ml Output Total 495 ml 705 ml Balance -49 ml 255 ml IV Total 426 ml 960 ml Other 20 ml Output Urine Total 495 ml 705 ml # Bowel Movements 3 3 Laboratory Tests 06/24/20 18:12: POC Whole Blood Glucose 105 06/24/20 23:22: POC Whole Blood Glucose 117H 06/25/20 04:15: White Blood Count 7.4, Red Blood Count 3.06L, Hemoglobin 8.7L, Hematocrit 28.1L, Mean Corpuscular Volume 92, Mean Corpuscular Hemoglobin 28.4, Mean Corpuscular Hemoglobin Concent 30.9L, Red Cell Distribution Width 16.8H, Platelet Count 210, Mean Platelet Volume 7.3, Neutrophils (%) (Auto) 74.0, Lymphocytes (%) (Auto) 13.0L, Monocytes (%) (Auto) 5.1, Eosinophils (%) (Auto) 6.4H, Basophils (%) (Auto) 1.4, Sodium Level 144, Potassium Level 3.6, Chloride Level 105, Carbon Dioxide Level 33H, Anion Gap 7, Blood Urea Nitrogen 23H, Creatinine 0.5L, Estimat Glomerular Filtration Rate > 60, Glucose Level 107H, Calcium Level 9.1 06/25/20 06:01: POC Whole Blood Glucose 123H 06/25/20 09:46: Arterial Blood pH 7.432, Arterial Blood Partial Pressure CO2 48.9H, Arterial Blood Partial Pressure O2 69.2L, Arterial Blood HCO3 31.9H, Arterial Blood Oxygen Saturation 92.2L, Arterial Blood Base Excess 6.7H, Jeremiah Test Positive Height (Feet): 5 Height (Inches): 5.00 Weight (Pounds): 308 General Appearance: lethargic EENT: normal ENT inspection Neck: normal alignment Cardiovascular: normal peripheral pulses, normal rate, regular rhythm Respiratory/Chest: chest wall non-tender, lungs clear, normal breath sounds Abdomen: normal bowel sounds, non tender, soft Extremities: normal inspection Edema: no edema noted Arm (L), no edema noted Arm (R), no edema noted Leg (L), no edema noted Leg (R), no edema noted Pedal (L), no edema noted Pedal (R), no edema noted Generalized Neurologic: motor weakness Skin: normal pigmentation, warm/dry Assessment/Plan Problem List: (1) Hypoxia ICD Codes: R09.02 - Hypoxemia SNOMED: 197358988 (2) Respiratory failure ICD Codes: J96.90 - Respiratory failure, unspecified, unspecified whether with hypoxia or hypercapnia SNOMED: 963917361 (3) Respiratory distress ICD Codes: R06.03 - Acute respiratory distress; J12.82 - Pneumonia due to coronavirus disease 2019 SNOMED: 082987497 (4) Pneumonia due to COVID-19 virus ICD Codes: U07.1 - COVID-19; J12.82 - Pneumonia due to coronavirus disease 2019 SNOMED: [id number] Status: unchanged Assessment/Plan: vent abx id pulm f/u cbc bmp am Tank Del Cid DO Jun 25, 2020 13:42
--- NOTE | 2020-06-25 14:08 | Pulmonology Progress Note ---
Subjective ROS Limited/Unobtainable: Yes Interval Events: Remains intubated Constitutional: Denies: fever HEENT: Repors: no symptoms Respiratory: Reports: no symptoms Cardiovascular: Reports: no symptoms Gastrointestinal/Abdominal: Reports: no symptoms Genitourinary: Reports: no symptoms Allergies: Coded Allergies: No Known Allergies (Unverified , 05/28/20) All Systems: reviewed and negative except above Objective Last 24 Hour Vital Signs Date Time Temp Pulse Resp B/P (MAP) Pulse Ox O2 Delivery O2 Flow Rate FiO2 06/25/20 14:01 27 Mechanical Ventilator 80 06/25/20 14:00 106 32 107/32 (57) 98 06/25/20 13:00 110 32 116/77 (90) 98 06/25/20 13:00 32 Mechanical Ventilator 80 06/25/20 12:20 80 06/25/20 12:00 Mechanical Ventilator Mechanical Ventilator 06/25/20 12:00 41 Mechanical Ventilator 90 06/25/20 12:00 99.0 119 41 102/59 (73) 100 06/25/20 12:00 105 06/25/20 12:00 90 06/25/20 11:00 107 31 95/55 (68) 98 06/25/20 11:00 31 Mechanical Ventilator 90 06/25/20 10:30 109 33 104/63 (77) 99 06/25/20 10:00 33 Mechanical Ventilator 90 06/25/20 10:00 106 33 102/63 (76) 98 06/25/20 09:30 106 27 107/67 (80) 97 06/25/20 09:00 102 31 108/68 (81) 99 06/25/20 09:00 31 Mechanical Ventilator 90 06/25/20 08:45 90 06/25/20 08:18 90 06/25/20 08:12 96 06/25/20 08:00 98.1 98 30 104/78 (87) 96 06/25/20 08:00 Mechanical Ventilator Mechanical Ventilator 06/25/20 08:00 30 Mechanical Ventilator 100 06/25/20 08:00 100 06/25/20 07:38 29 Mechanical Ventilator 100 06/25/20 07:10 95 29 100 06/25/20 07:00 97 29 112/72 (85) 97 06/25/20 06:57 33 Mechanical Ventilator 100 06/25/20 06:30 94 22 06/25/20 06:00 99 31 118/79 (92) 96 06/25/20 05:57 23 Mechanical Ventilator 100 06/25/20 05:19 101 30 100 06/25/20 05:00 99 31 111/81 (91) 99 06/25/20 04:57 30 Mechanical Ventilator 06/25/20 04:00 Mechanical Ventilator Mechanical Ventilator 06/25/20 04:00 100 06/25/20 04:00 97.5 96 27 115/78 (90) 97 06/25/20 04:00 97 06/25/20 03:57 22 Mechanical Ventilator 100 06/25/20 03:18 100 28 100 06/25/20 03:00 97 30 116/74 (88) 96 06/25/20 02:57 28 100 06/25/20 02:00 92 27 99/58 (72) 97 06/25/20 01:57 26 Mechanical Ventilator 100 06/25/20 01:00 95 0 100/59 (73) 99 06/25/20 00:59 92 27 100 06/25/20 00:57 16 Mechanical Ventilator 100 06/25/20 00:11 24 100 06/25/20 00:01 27 100 06/25/20 00:00 100 06/25/20 00:00 93 06/25/20 00:00 98.7 92 24 104/66 (79) 99 06/25/20 00:00 Mechanical Ventilator Mechanical Ventilator 06/24/20 23:57 29 Mechanical Ventilator 100 06/24/20 23:10 94 28 100 06/24/20 23:00 93 27 108/72 (84) 98 06/24/20 22:57 24 Mechanical Ventilator 100 06/24/20 22:00 99 29 102/66 (78) 100 06/24/20 21:57 25 Mechanical Ventilator 100 06/24/20 21:20 106 27 100 06/24/20 21:00 98 26 103/69 (80) 99 06/24/20 20:57 23 Mechanical Ventilator 100 06/24/20 20:00 Mechanical Ventilator Mechanical Ventilator 06/24/20 20:00 98.7 99 27 100/63 (75) 100 06/24/20 20:00 110 06/24/20 20:00 100 06/24/20 19:57 23 Mechanical Ventilator 100 06/24/20 19:10 106 26 100 06/24/20 19:00 107 27 99/61 (74) 100 06/24/20 18:57 Mechanical Ventilator 06/24/20 18:30 105 27 93/56 (68) 100 06/24/20 18:15 103 24 93/56 (68) 100 06/24/20 18:00 104 27 85/54 (64) 100 06/24/20 17:57 Mechanical Ventilator 06/24/20 17:21 98 28 100 06/24/20 17:00 100 29 103/64 (77) 97 06/24/20 16:57 Mechanical Ventilator 06/24/20 16:30 93 25 83/56 (65) 99 06/24/20 16:21 Mechanical Ventilator 06/24/20 16:00 100 06/24/20 16:00 95 06/24/20 16:00 98.8 91 24 93/58 (70) 99 06/24/20 16:00 Mechanical Ventilator Mechanical Ventilator 06/24/20 15:30 89 26 100/58 (72) 99 06/24/20 15:21 Mechanical Ventilator 06/24/20 15:20 89 24 100 06/24/20 15:00 91 24 106/66 (79) 98 06/24/20 14:30 88 24 97/58 (71) 100 06/24/20 14:21 Mechanical Ventilator Intake and Output 06/24/20 06/25/20 19:00 07:00 Intake Total 446 ml 960 ml Output Total 495 ml 705 ml Balance -49 ml 255 ml IV Total 426 ml 960 ml Other 20 ml Output Urine Total 495 ml 705 ml # Bowel Movements 3 3 General Appearance: no acute distress HEENT: normocephalic Respiratory: chest wall non-tender Cardiovascular: normal peripheral pulses Abdomen: normal bowel sounds Laboratory Tests 06/24/20 18:12: POC Whole Blood Glucose 105 06/24/20 23:22: POC Whole Blood Glucose 117H 06/25/20 04:15: White Blood Count 7.4, Red Blood Count 3.06L, Hemoglobin 8.7L, Hematocrit 28.1L, Mean Corpuscular Volume 92, Mean Corpuscular Hemoglobin 28.4, Mean Corpuscular Hemoglobin Concent 30.9L, Red Cell Distribution Width 16.8H, Platelet Count 210, Mean Platelet Volume 7.3, Neutrophils (%) (Auto) 74.0, Lymphocytes (%) (Auto) 13.0L, Monocytes (%) (Auto) 5.1, Eosinophils (%) (Auto) 6.4H, Basophils (%) (Auto) 1.4, Sodium Level 144, Potassium Level 3.6, Chloride Level 105, Carbon Dioxide Level 33H, Anion Gap 7, Blood Urea Nitrogen 23H, Creatinine 0.5L, Estimat Glomerular Filtration Rate > 60, Glucose Level 107H, Calcium Level 9.1 06/25/20 06:01: POC Whole Blood Glucose 123H 06/25/20 09:46: Arterial Blood pH 7.432, Arterial Blood Partial Pressure CO2 48.9H, Arterial Blood Partial Pressure O2 69.2L, Arterial Blood HCO3 31.9H, Arterial Blood Oxygen Saturation 92.2L, Arterial Blood Base Excess 6.7H, Jeremiah Test Positive Current Medications Medications (Trade) Dose Ordered Sig/Zelda Route PRN Reason Start Time Stop Time Status Last Admin Dose Admin Acetaminophen (Tylenol) 650 mg Q4H PRN NG Temp >100.5 05/31/20 21:45 06/30/20 21:44 06/21/20 12:19 Acetaminophen (Tylenol) 650 mg Q6H PRN NG Mild Pain (Pain Scale 1-3) 06/06/20 18:00 07/06/20 17:59 06/13/20 23:10 Chlorhexidine Gluconate (Inna-Hex 2%) 1 applic DAILY@2000 TOPIC 05/30/20 20:00 08/28/20 19:59 06/24/20 20:09 Dextrose (Dextrose 50%) 25 ml Q30M PRN IV Hypoglycemia 06/05/20 10:45 09/03/20 10:44 Dextrose (Dextrose 50%) 50 ml Q30M PRN IV Hypoglycemia 06/05/20 10:45 09/03/20 10:44 Dextrose/Sodium Chloride 1,000 ml @ 50 mls/hr Q20H IV 06/24/20 16:30 07/24/20 16:29 06/25/20 12:59 Docusate Sodium (Colace) 100 mg Q12HR GT 06/07/20 21:00 07/07/20 20:59 06/25/20 09:11 Enoxaparin Sodium (Lovenox) 40 mg DAILY SUBQ 05/30/20 10:00 4/7/21 09:59 06/25/20 09:11 Furosemide (Lasix) 40 mg DAILY IV 06/22/20 09:00 07/22/20 08:59 06/25/20 09:11 Insulin Aspart (NovoLOG) EVERY 6 HOURS SUBQ 06/07/20 00:00 09/03/20 11:59 06/24/20 18:00 Midazolam HCl 100 mg/Sodium Chloride 200 ml @ 0 mls/hr Q24H PRN IV SEDATION 06/25/20 13:30 06/27/20 13:29 06/25/20 14:01 Midodrine (Pro-Amatine) 10 mg Q8HR ORAL 06/14/20 14:00 09/12/20 13:59 06/25/20 06:09 Pantoprazole (Protonix) 40 mg Q12HR IVP 06/13/20 21:00 07/03/20 08:59 06/25/20 09:11 Polyethylene Glycol (Miralax) 17 gm BEDTIME GT 06/07/20 21:00 07/07/20 20:59 06/17/20 21:02 Assessment/Plan Assessment/Plan 1. COVID-19 pneumonia -Intubated 05/28/20 - We will continue broad-spectrum antibiotics. -s/p solumedrol, Rocephin -Continue PEEP 7 - Peak airway pressures high; approx 48 now - FiO2 100% -> 90 ->80->60 ->40 ->80 ->100%; -will continue OGT feeding -Continue sedation; Need to keep patient completely sedated. - ABG slight improvement 2. Hyponatremia -Per primary MD 3. Elevated inflammatory markers - has high D dimer; Lovenox on hold due to hematuria 4. Decrease PEEP Continue weaning efforts May need trach Discussed with surgery Currently FiO2 too high for safe tracheostomy Long discussion with family who wish to wean her off the oxygen eventually instead of trach. Trach if "necessary" per family. Discussed again with niece. She was advised regarding poor prognosis. Javier Nava MD Jun 25, 2020 14:08
--- NOTE | 2020-06-25 14:16 | NUR ---
CASE MANAGEMENT:REVIEW 06/25/20 SI: COVID PNA ACUTE RESPIRATORY FAILURE~ INTUBATED 99.0 119 41 95/55 98% ON VENT W/80% FIO2 H/H-8.7/28.1 PCO2+48.9 PO2-69.2 HCO3+31.9 IS: VERSED GTT IVF@50/HR IV LASIX QD IV PROTONIX Q12 LOVENOX SQ QD MIDODRINE NG Q8HRS : ICU STATUS DCP: FROM HOME PLAN: WEAN TOLERATED
--- NOTE | 2020-06-25 14:21 | NUR ---
NURSE HAND-OFF REPORT: Latest Vital Signs: Temperature 99.0 , Pulse 106 , B/P 107 /32 , Respiratory Rate 27 , O2 SAT 98 , Mechanical Ventilator, O2 Flow Rate . Vital Sign Comment: RASS -2 EKG Rhythm: Sinus Tachycardia Rhythm change?: N Latest Meyers Fall Score: 70 Fall Risk: High Risk Safety Measures: Call light Within Reach, Bed Alarm Zone 1, Side Rails Side Rails x2, Bed position Low and Locked. Fall Precautions: Yellow Socks Airborne isolation endorsed Report given to Angie Faust RN.
--- NOTE | 2020-06-25 14:22 | NUR ---
NURSE NOTES: RECEIVED REPORT FROM JAN Jalloh PT IN BED. NO DISTRESS NOTED. SEDATED ON VERSED DRIP AT 15MG/KG. COOLING BLANKET ON, RECTAL 98. INTUBATED AT 7, 23CM AT LIP. VENT SETTINGS: AC 15, VT 600, PEEP 7, FI02 80%. SECRETIONS MODERATE. ABDOMEN ROUND, LARGE. RECTAL TUBE IN PLACE. NPO, NGT RT NARES. SUPINE. GARCIA DRAINING URINE. TRACE EDEMA. LINDA PICC. IV FLUID D51/2 NS AT 50ML/HR. AIRBORNE PRECAUTIONS IN PLACE. SIDE RAILS X 3. BED ALARM ON. IN LOWEST POSITION. WILL CONTINUE TO MONITOR PT CLOSELY.
--- NOTE | 2020-06-25 17:05 | NUR ---
INSURANCE CLINICALS/REVIEW FAXED TO [facility] T: [phone] EXT [phone] F: [phone]
--- NOTE | 2020-06-25 17:16 | NUR ---
NURSE NOTES: oral care and suction provided. extremities elevated on pillows. cooling blanket on. accu chk WNL. versed running at 15mg/kg/min. fi02 70%, pt sating 93%. will inform R.T
--- NOTE | 2020-06-25 19:07 | NUR ---
NURSE HAND-OFF REPORT: Latest Vital Signs: Temperature 98.8 , Pulse 108 , B/P 113 /77 , Respiratory Rate 30 , O2 SAT 93 , Mechanical Ventilator, O2 Flow Rate . Vital Sign Comment: EKG Rhythm: Sinus Tachycardia Rhythm change?: N Notified?: Babs EDWARDS MD Response: Latest Meyers Fall Score: 70 Fall Risk: High Risk Safety Measures: Call light Within Reach, Bed Alarm Zone 1, Side Rails Side Rails x2, Bed position Low and Locked. Fall Precautions: Yellow Socks Report given to Morgan WITT R.N
--- NOTE | 2020-06-25 19:12 | NUR ---
NURSE NOTES: Received patient from RAKEL Adams. Will continue plan of care.
--- NOTE | 2020-06-25 20:00 | NUR ---
NURSE NOTES: Patient is intubated; ETT 7.0 @ 23cm to the lipline to vent with settings: AC:15, TV:600, FiO2:60%, PEEP:7, O2sat:98%. Sedated w/ a RASS score of -2 lightly sedated. Right upper arm PICC dry and intact running Versed @ 15mg and D51/2NS @ 50ml/hr. OGT in place but NPO do to high risk of aspiration. Lennon and rectal tube in place and draining. Safety measures in place; bed low and locked. Cooling blanket is on, rectal temp of 97.7F. Will continue plan of care.
[2020-06-25] MEDS: Dyna-Hex 2% Top Sol 2oz TOPIC SCH (20:43)
[2020-06-25] MEDS: Miralax 17gm pkt GT SCH (20:44)
--- NOTE | 2020-06-25 22:00 | NUR ---
NURSE NOTES: Frequent suctioning provided. HOB now >30degree had to done manually with certified pathology assistant. Repositioned.
[2020-06-26] VITALS (54 sets, daily range): BP systolic 100–128; BP diastolic 60–99
--- NOTE | 2020-06-26 | NUR ---
NURSE NOTES: FiO2 up to 80% due to desat to mid 80s. Now tolerating better @ 98%.
--- NOTE | 2020-06-26 02:00 | NUR ---
NURSE NOTES: Bed bath given, linens changed, turned and repositioned. Frequent suctioning provided. Oral care done. Patient in high-fowlers position; head of bed adjusted manually with assist.
[2020-06-26] MEDS: Midazolam HCl 50mg/10ml vial 100 MG in NS 180 ML IV PRN ×2 (02:09→13:05)
--- NOTE | 2020-06-26 04:00 | NUR ---
NURSE NOTES: Versed down to 10mg, remains RASS -2 lightly sedated. Opened eyes and able to slightly nod to Upper Sorbian speaking RN. Attempt to titrate down sedation if tolerated for possible weaning trial in the AM.
[2020-06-26 05:16] LABS: BASOPHILS % (AUTO) 0.7 % (0.0-2.0); EOSINOPHILS % (AUTO) 4.8 % (0.0-3.0); HEMATOCRIT 30.2 % (37.0-47.0); HEMOGLOBIN 9.5 G/DL (12.0-16.0); LYMPHOCYTES % (AUTO) 15.1 % (20.0-45.0); MEAN CORPUSCULAR VOLUME 92 FL (80-99); MONOCYTES % (AUTO) 3.9 % (1.0-10.0); NEUTROPHILS % (AUTO) 75.5 % (45.0-75.0); PLATELET COUNT 223 K/UL (150-450); RED BLOOD COUNT 3.28 M/UL (4.20-5.40); RED CELL DISTRIBUTION WIDTH 16.5 % (11.6-14.8)
[2020-06-26] MEDS: NovoLOG Insulin Flexpen SUBQ SCH ×4 (05:49→17:42)
[2020-06-26] MEDS: Midodrine 10mg tab ORAL SCH ×3 (05:49→22:25)
[2020-06-26 05:52] LABS: ALANINE AMINOTRANSFERASE 26 U/L (12-78); ALBUMIN 2.2 G/DL (3.4-5.0); ALBUMIN/GLOBULIN RATIO 0.4 (1.0-2.7); ALKALINE PHOSPHATASE 84 U/L (46-116); ANION GAP 7 mmol/L (5-15); ASPARTATE AMINO TRANSFERASE 44 U/L (15-37); BILIRUBIN,TOTAL 1.7 MG/DL (0.2-1.0); BLOOD UREA NITROGEN 19 mg/dL (7-18); CALCIUM 9.1 MG/DL (8.5-10.1); CARBON DIOXIDE 33 MMOL/L (21-32); CHLORIDE 99 MMOL/L (98-107); CREATININE 0.5 MG/DL (0.55-1.30); PHOSPHORUS 2.9 MG/DL (2.5-4.9); POTASSIUM 4.4 MMOL/L (3.5-5.1); SODIUM 139 MMOL/L (136-145)
[2020-06-26 05:58] LABS: BILIRUBIN,DIRECT 0.4 MG/DL (0.0-0.3)
--- NOTE | 2020-06-26 07:04 | Hematology/Onc Progress Note ---
Assessment/Plan Assessment/Plan # Thrombocytopenia is due to infection/underlying covid19+++ --> ABX ceftriaxone -->zosyn-->off --> on steriods likely cause of initial wbc --> per pulm --> plt 107->156-->192-->205 --> smear reviewed # Anemia due to chronic disease --> hgb goal is >7 --> transfuse prn --> ferritin is >1000 --> hold off on iron --> 10-->9.8->9-->8-->8.2-->9.4-->8.1-->9.9-->8.7 # Elevated ddimer due to covid19++ --> duplex legs is negative --> underlying covid rx # Hypoxia -> due to covid19 # Hypoxemia --> rx same as above # Respiratory failure --> on vent --> per pulm # Pneumonia due to COVID-19 virus --> per pulm rx -> sp remdesivir # Diabetes mellitus out of control --> hgb a1c goal <7 # Poor prognosis # Dvt ppx lovenox sq Appreciate consultation and bowen RN Subjective Allergies: Coded Allergies: No Known Allergies (Unverified , 05/28/20) All Systems: reviewed and negative except above Subjective 06/10 nv, on vent, with ogt, on fentanyl and versed, plt stable 06/11 nv, vent adjusted is on ogt, meds reviewed 06/12 nv, vent, meds noted, labs noted, no bleeding, hgb 10.4 06/13 nv, is on vent, meds reviewed, no bleeding, cbc reviewed 06/14 nv, on vent, tachy, labs reviewed, gross hematuria, febrile overnight, abx 06/17 nv, on vent, labs noted, no major changes, feeling better overnight 06/18 nv, meds reviewed, labs noted, no major events, hgb 8.6 06/19 nv, remains intubated, with fluids, labs reviewed, meds noted 06/20 nv, intubated remains on restraints, meds noted as well, as labs 06/21 nv, remains on vent, on restraints, meds reviewed, labs noted 06/22: covering Dr. Del Cid no acute events 06/23 sedated, on vent, nv, intubated, meds reviewed, versed 06/24 nv, on vent, no night sweats, no bleeding, remains in icu 06/25 nv, on vent, icu, meds noted, no bleeding, comfortable 06/26 nv, on versed, icu, weaning parameters, labs noted Objective Objective Current Medications Medications (Trade) Dose Ordered Sig/Zelda Route PRN Reason Start Time Stop Time Status Last Admin Dose Admin Acetaminophen (Tylenol) 650 mg Q4H PRN NG Temp >100.5 05/31/20 21:45 06/30/20 21:44 06/21/20 12:19 Acetaminophen (Tylenol) 650 mg Q6H PRN NG Mild Pain (Pain Scale 1-3) 06/06/20 18:00 07/06/20 17:59 06/13/20 23:10 Chlorhexidine Gluconate (Inna-Hex 2%) 1 applic DAILY@2000 TOPIC 05/30/20 20:00 08/28/20 19:59 06/25/20 20:43 Dextrose (Dextrose 50%) 25 ml Q30M PRN IV Hypoglycemia 06/05/20 10:45 09/03/20 10:44 Dextrose (Dextrose 50%) 50 ml Q30M PRN IV Hypoglycemia 06/05/20 10:45 09/03/20 10:44 Dextrose/Sodium Chloride 1,000 ml @ 50 mls/hr Q20H IV 06/24/20 16:30 07/24/20 16:29 06/25/20 12:59 Docusate Sodium (Colace) 100 mg Q12HR GT 06/07/20 21:00 07/07/20 20:59 06/25/20 20:44 Enoxaparin Sodium (Lovenox) 40 mg DAILY SUBQ 05/30/20 10:00 08/28/20 09:59 06/25/20 09:11 Furosemide (Lasix) 40 mg DAILY IV 06/22/20 09:00 07/22/20 08:59 06/25/20 09:11 Insulin Aspart (NovoLOG) EVERY 6 HOURS SUBQ 06/07/20 00:00 09/03/20 11:59 06/24/20 18:00 Midazolam HCl 100 mg/Sodium Chloride 200 ml @ 0 mls/hr Q24H PRN IV SEDATION 06/25/20 13:30 06/27/20 13:29 06/26/20 02:09 Midodrine (Pro-Amatine) 10 mg Q8HR ORAL 06/14/20 14:00 09/12/20 13:59 06/26/20 05:49 Pantoprazole (Protonix) 40 mg Q12HR IVP 06/13/20 21:00 07/03/20 08:59 06/25/20 20:44 Polyethylene Glycol (Miralax) 17 gm BEDTIME GT 06/07/20 21:00 07/07/20 20:59 06/25/20 20:44 Last 24 Hour Vital Signs Date Time Temp Pulse Resp B/P (MAP) Pulse Ox O2 Delivery O2 Flow Rate FiO2 06/26/20 07:00 99 28 113/72 (86) 94 06/26/20 07:00 30 Mechanical Ventilator 80 06/26/20 06:30 104 30 06/26/20 06:00 104 22 105/72 (83) 97 06/26/20 06:00 30 Mechanical Ventilator 80 06/26/20 05:00 28 Mechanical Ventilator 80 06/26/20 05:00 111 32 118/99 (105) 95 06/26/20 04:00 Mechanical Ventilator Mechanical Ventilator 06/26/20 04:00 98.8 106 29 109/67 (81) 96 06/26/20 04:00 80 06/26/20 04:00 37 Mechanical Ventilator 80 06/26/20 03:51 106 06/26/20 03:18 80 06/26/20 03:17 105 27 60 06/26/20 03:00 26 Mechanical Ventilator 80 06/26/20 03:00 110 36 112/78 (89) 91 06/26/20 02:45 30 Mechanical Ventilator 80 06/26/20 02:30 20 Mechanical Ventilator 80 06/26/20 02:09 32 Mechanical Ventilator 80 06/26/20 02:00 109 29 104/71 (82) 98 06/26/20 02:00 36 Mechanical Ventilator 80 06/26/20 01:00 101 28 101/68 (79) 99 06/26/20 01:00 34 Mechanical Ventilator 80 06/26/20 00:00 98.5 109 25 113/71 (85) 97 06/26/20 00:00 20 Mechanical Ventilator 80 06/26/20 00:00 Mechanical Ventilator Mechanical Ventilator 06/25/20 23:45 20 Mechanical Ventilator 80 06/25/20 23:30 21 Mechanical Ventilator 60 06/25/20 23:22 116 27 60 06/25/20 23:00 117 06/25/20 23:00 118 28 114/78 (90) 96 06/25/20 22:30 25 Mechanical Ventilator 60 06/25/20 22:15 20 Mechanical Ventilator 60 06/25/20 22:00 122 22 115/92 (100) 90 06/25/20 22:00 15 Mechanical Ventilator 60 06/25/20 21:45 36 Mechanical Ventilator 60 06/25/20 21:30 35 Mechanical Ventilator 60 06/25/20 21:15 38 Mechanical Ventilator 60 06/25/20 21:00 113 46 128/97 (107) 85 06/25/20 21:00 40 Mechanical Ventilator 60 06/25/20 20:43 33 Mechanical Ventilator 60 06/25/20 20:00 60 06/25/20 20:00 35 Mechanical Ventilator 60 06/25/20 20:00 Mechanical Ventilator Mechanical Ventilator 06/25/20 20:00 97.7 107 30 117/77 (90) 95 06/25/20 19:35 110 06/25/20 19:21 106 27 60 06/25/20 19:00 34 Mechanical Ventilator 60 06/25/20 19:00 109 28 117/80 (92) 91 06/25/20 18:00 108 30 113/77 (89) 93 06/25/20 17:20 60 06/25/20 17:10 103 32 107/73 (84) 96 06/25/20 17:00 104 32 70 06/25/20 16:00 103 06/25/20 16:00 Mechanical Ventilator 06/25/20 16:00 98.8 103 32 113/77 (89) 96 06/25/20 16:00 Mechanical Ventilator Mechanical Ventilator 06/25/20 15:43 70 06/25/20 15:00 Mechanical Ventilator 06/25/20 15:00 101 28 122/84 (97) 100 06/25/20 15:00 101 30 80 06/25/20 14:01 27 Mechanical Ventilator 80 06/25/20 14:00 27 Mechanical Ventilator 80 06/25/20 14:00 106 32 107/32 (57) 98 06/25/20 13:00 110 32 116/77 (90) 98 06/25/20 13:00 32 Mechanical Ventilator 80 06/25/20 12:20 80 06/25/20 12:20 80 06/25/20 12:00 Mechanical Ventilator Mechanical Ventilator 06/25/20 12:00 41 Mechanical Ventilator 90 06/25/20 12:00 99.0 119 41 102/59 (73) 100 06/25/20 12:00 105 06/25/20 12:00 90 06/25/20 11:40 119 34 90 06/25/20 11:00 107 31 95/55 (68) 98 06/25/20 11:00 31 Mechanical Ventilator 90 06/25/20 10:30 109 33 104/63 (77) 99 06/25/20 10:00 33 Mechanical Ventilator 90 06/25/20 10:00 106 33 102/63 (76) 98 06/25/20 09:30 106 27 107/67 (80) 97 06/25/20 09:00 102 31 108/68 (81) 99 06/25/20 09:00 31 Mechanical Ventilator 90 06/25/20 08:45 90 06/25/20 08:18 90 06/25/20 08:12 96 06/25/20 08:00 98.1 98 30 104/78 (87) 96 06/25/20 08:00 Mechanical Ventilator Mechanical Ventilator 06/25/20 08:00 30 Mechanical Ventilator 100 06/25/20 08:00 100 06/25/20 07:38 29 Mechanical Ventilator 100 06/25/20 07:10 95 29 100 06/25/20 07:00 97 29 112/72 (85) 97 06/25/20 06:57 33 Mechanical Ventilator 100 06/25/20 06:30 94 22 06/25/20 06:00 99 31 118/79 (92) 96 06/25/20 05:57 23 Mechanical Ventilator 100 06/25/20 05:19 101 30 100 06/25/20 05:00 99 31 111/81 (91) 99 06/25/20 04:57 30 Mechanical Ventilator 06/25/20 04:00 Mechanical Ventilator Mechanical Ventilator 06/25/20 04:00 100 06/25/20 04:00 97.5 96 27 115/78 (90) 97 06/25/20 04:00 97 06/25/20 03:57 22 Mechanical Ventilator 100 06/25/20 03:18 100 28 100 06/25/20 03:00 97 30 116/74 (88) 96 06/25/20 02:57 28 100 06/25/20 02:00 92 27 99/58 (72) 97 06/25/20 01:57 26 Mechanical Ventilator 100 06/25/20 01:00 95 0 100/59 (73) 99 06/25/20 00:59 92 27 100 06/25/20 00:57 16 Mechanical Ventilator 100 06/25/20 00:11 24 100 06/25/20 00:01 27 100 06/25/20 00:00 100 06/25/20 00:00 93 06/25/20 00:00 98.7 92 24 104/66 (79) 99 06/25/20 00:00 Mechanical Ventilator Mechanical Ventilator 06/24/20 23:57 29 Mechanical Ventilator 100 06/24/20 23:10 94 28 100 06/24/20 23:00 93 27 108/72 (84) 98 06/24/20 22:57 24 Mechanical Ventilator 100 06/24/20 22:00 99 29 102/66 (78) 100 06/24/20 21:57 25 Mechanical Ventilator 100 06/24/20 21:20 106 27 100 06/24/20 21:00 98 26 103/69 (80) 99 06/24/20 20:57 23 Mechanical Ventilator 100 06/24/20 20:00 Mechanical Ventilator Mechanical Ventilator 06/24/20 20:00 98.7 99 27 100/63 (75) 100 06/24/20 20:00 110 06/24/20 20:00 100 06/24/20 19:57 23 Mechanical Ventilator 100 06/24/20 19:10 106 26 100 06/24/20 19:00 107 27 99/61 (74) 100 06/24/20 18:57 Mechanical Ventilator 06/24/20 18:30 105 27 93/56 (68) 100 06/24/20 18:15 103 24 93/56 (68) 100 06/24/20 18:00 104 27 85/54 (64) 100 06/24/20 17:57 Mechanical Ventilator 06/24/20 17:21 98 28 100 06/24/20 17:00 100 29 103/64 (77) 97 06/24/20 16:57 Mechanical Ventilator 06/24/20 16:30 93 25 83/56 (65) 99 06/24/20 16:21 Mechanical Ventilator 06/24/20 16:00 100 06/24/20 16:00 95 06/24/20 16:00 98.8 91 24 93/58 (70) 99 06/24/20 16:00 Mechanical Ventilator Mechanical Ventilator 06/24/20 15:30 89 26 100/58 (72) 99 06/24/20 15:21 Mechanical Ventilator 06/24/20 15:20 89 24 100 06/24/20 15:00 91 24 106/66 (79) 98 06/24/20 14:30 88 24 97/58 (71) 100 06/24/20 14:21 Mechanical Ventilator 06/24/20 14:00 87 23 93/62 (72) 97 06/24/20 13:30 88 26 99/66 (77) 99 06/24/20 13:30 86 25 100 06/24/20 13:21 Mechanical Ventilator 06/24/20 13:00 91 28 105/72 (83) 98 06/24/20 12:30 92 26 100/64 (76) 98 06/24/20 12:21 Mechanical Ventilator 06/24/20 12:00 Mechanical Ventilator Mechanical Ventilator 06/24/20 12:00 97.0 93 27 101/65 (77) 99 06/24/20 12:00 94 06/24/20 12:00 100 06/24/20 11:30 85 24 101/67 (78) 97 06/24/20 11:21 Mechanical Ventilator 06/24/20 11:09 90 23 96/63 (74) 99 06/24/20 11:02 89 22 100 06/24/20 11:00 90 21 88/55 (66) 99 06/24/20 10:30 90 24 90/57 (68) 99 06/24/20 10:21 Mechanical Ventilator 06/24/20 10:00 88 24 92/58 (69) 99 06/24/20 09:30 91 24 100/62 (75) 100 06/24/20 09:21 Mechanical Ventilator 06/24/20 09:15 90 27 100 06/24/20 09:00 93 23 99/55 (70) 98 06/24/20 09:00 Mechanical Ventilator 06/24/20 08:30 92 14 103/58 (73) 97 06/24/20 08:00 93 24 104/61 (75) 98 06/24/20 08:00 Mechanical Ventilator 06/24/20 08:00 100 06/24/20 08:00 Mechanical Ventilator Mechanical Ventilator 06/24/20 08:00 95 06/24/20 07:17 95 27 100 Intake and Output 06/25/20 06/26/20 19:00 07:00 Intake Total 731 ml 928.0 ml Output Total 600 ml 390 ml Balance 131 ml 538.0 ml IV Total 731 ml 928.0 ml Output Urine Total 490 ml 390 ml Stool Total 110 ml # Bowel Movements 3 53 Labs Test 06/23/20 08:13 06/23/20 12:16 06/23/20 18:27 06/23/20 23:55 Arterial Blood pH 7.444 (7.350-7.450) Arterial Blood Partial Pressure CO2 51.2 mmHg (35.0-45.0) Arterial Blood Partial Pressure O2 49.8 mmHg (75.0-100.0) Arterial Blood HCO3 34.3 mmol/L (22.0-26.0) Arterial Blood Oxygen Saturation 82.3 % (95-100) Arterial Blood Base Excess 9.0 (-2-2) Jeremiah Test Positive POC Whole Blood Glucose 117 MG/DL (74-106) 114 MG/DL (74-106) 115 MG/DL (74-106) Test 06/24/20 05:34 06/24/20 05:59 06/24/20 07:20 06/24/20 13:40 White Blood Count 5.9 K/UL (4.8-10.8) Red Blood Count 3.46 M/UL (4.20-5.40) Hemoglobin 9.9 G/DL (12.0-16.0) Hematocrit 31.9 % (37.0-47.0) Mean Corpuscular Volume 92 FL (80-99) Mean Corpuscular Hemoglobin 28.7 PG (27.0-31.0) Mean Corpuscular Hemoglobin Concent 31.1 G/DL (32.0-36.0) Red Cell Distribution Width 16.5 % (11.6-14.8) Platelet Count 211 K/UL (150-450) Mean Platelet Volume 7.7 FL (6.5-10.1) Neutrophils (%) (Auto) 73.7 % (45.0-75.0) Lymphocytes (%) (Auto) 14.1 % (20.0-45.0) Monocytes (%) (Auto) 3.8 % (1.0-10.0) Eosinophils (%) (Auto) 7.4 % (0.0-3.0) Basophils (%) (Auto) 1.0 % (0.0-2.0) Sodium Level 143 MMOL/L (136-145) Potassium Level 3.8 MMOL/L (3.5-5.1) Chloride Level 102 MMOL/L (98-107) Carbon Dioxide Level 36 MMOL/L (21-32) Anion Gap 5 mmol/L (5-15) Blood Urea Nitrogen 26 mg/dL (7-18) Creatinine 0.6 MG/DL (0.55-1.30) Estimat Glomerular Filtration Rate > 60 mL/min (>60) Glucose Level 100 MG/DL (74-106) Calcium Level 9.3 MG/DL (8.5-10.1) Phosphorus Level 3.7 MG/DL (2.5-4.9) Magnesium Level 1.8 MG/DL (1.8-2.4) Total Bilirubin 1.4 MG/DL (0.2-1.0) Direct Bilirubin 0.2 MG/DL (0.0-0.3) Aspartate Amino Transf (AST/SGOT) 31 U/L (15-37) Alanine Aminotransferase (ALT/SGPT) 20 U/L (12-78) Alkaline Phosphatase 80 U/L (46-116) Total Protein 7.0 G/DL (6.4-8.2) Albumin 2.0 G/DL (3.4-5.0) Globulin 5.0 g/dL Albumin/Globulin Ratio 0.4 (1.0-2.7) POC Whole Blood Glucose 97 MG/DL (74-106) 127 MG/DL (74-106) Arterial Blood pH 7.425 (7.350-7.450) Arterial Blood Partial Pressure CO2 56.7 mmHg (35.0-45.0) Arterial Blood Partial Pressure O2 70.9 mmHg (75.0-100.0) Arterial Blood HCO3 36.4 mmol/L (22.0-26.0) Arterial Blood Oxygen Saturation 92.7 % (95-100) Arterial Blood Base Excess 10.5 (-2-2) Jeremiah Test Positive Test 06/24/20 18:12 06/24/20 23:22 06/25/20 04:15 06/25/20 06:01 POC Whole Blood Glucose 105 MG/DL (74-106) 117 MG/DL (74-106) 123 MG/DL (74-106) White Blood Count 7.4 K/UL (4.8-10.8) Red Blood Count 3.06 M/UL (4.20-5.40) Hemoglobin 8.7 G/DL (12.0-16.0) Hematocrit 28.1 % (37.0-47.0) Mean Corpuscular Volume 92 FL (80-99) Mean Corpuscular Hemoglobin 28.4 PG (27.0-31.0) Mean Corpuscular Hemoglobin Concent 30.9 G/DL (32.0-36.0) Red Cell Distribution Width 16.8 % (11.6-14.8) Platelet Count 210 K/UL (150-450) Mean Platelet Volume 7.3 FL (6.5-10.1) Neutrophils (%) (Auto) 74.0 % (45.0-75.0) Lymphocytes (%) (Auto) 13.0 % (20.0-45.0) Monocytes (%) (Auto) 5.1 % (1.0-10.0) Eosinophils (%) (Auto) 6.4 % (0.0-3.0) Basophils (%) (Auto) 1.4 % (0.0-2.0) Sodium Level 144 MMOL/L (136-145) Potassium Level 3.6 MMOL/L (3.5-5.1) Chloride Level 105 MMOL/L (98-107) Carbon Dioxide Level 33 MMOL/L (21-32) Anion Gap 7 mmol/L (5-15) Blood Urea Nitrogen 23 mg/dL (7-18) Creatinine 0.5 MG/DL (0.55-1.30) Estimat Glomerular Filtration Rate > 60 mL/min (>60) Glucose Level 107 MG/DL (74-106) Calcium Level 9.1 MG/DL (8.5-10.1) Test 06/25/20 09:46 06/26/20 04:15 Arterial Blood pH 7.432 (7.350-7.450) Arterial Blood Partial Pressure CO2 48.9 mmHg (35.0-45.0) Arterial Blood Partial Pressure O2 69.2 mmHg (75.0-100.0) Arterial Blood HCO3 31.9 mmol/L (22.0-26.0) Arterial Blood Oxygen Saturation 92.2 % (95-100) Arterial Blood Base Excess 6.7 (-2-2) Jeremiah Test Positive White Blood Count 9.0 K/UL (4.8-10.8) Red Blood Count 3.28 M/UL (4.20-5.40) Hemoglobin 9.5 G/DL (12.0-16.0) Hematocrit 30.2 % (37.0-47.0) Mean Corpuscular Volume 92 FL (80-99) Mean Corpuscular Hemoglobin 28.9 PG (27.0-31.0) Mean Corpuscular Hemoglobin Concent 31.4 G/DL (32.0-36.0) Red Cell Distribution Width 16.5 % (11.6-14.8) Platelet Count 223 K/UL (150-450) Mean Platelet Volume 7.2 FL (6.5-10.1) Neutrophils (%) (Auto) 75.5 % (45.0-75.0) Lymphocytes (%) (Auto) 15.1 % (20.0-45.0) Monocytes (%) (Auto) 3.9 % (1.0-10.0) Eosinophils (%) (Auto) 4.8 % (0.0-3.0) Basophils (%) (Auto) 0.7 % (0.0-2.0) Sodium Level 139 MMOL/L (136-145) Potassium Level 4.4 MMOL/L (3.5-5.1) Chloride Level 99 MMOL/L (98-107) Carbon Dioxide Level 33 MMOL/L (21-32) Anion Gap 7 mmol/L (5-15) Blood Urea Nitrogen 19 mg/dL (7-18) Creatinine 0.5 MG/DL (0.55-1.30) Estimat Glomerular Filtration Rate > 60 mL/min (>60) Glucose Level 123 MG/DL (74-106) Uric Acid 1.8 MG/DL (2.6-7.2) Calcium Level 9.1 MG/DL (8.5-10.1) Phosphorus Level 2.9 MG/DL (2.5-4.9) Magnesium Level 1.8 MG/DL (1.8-2.4) Total Bilirubin 1.7 MG/DL (0.2-1.0) Direct Bilirubin 0.4 MG/DL (0.0-0.3) Aspartate Amino Transf (AST/SGOT) 44 U/L (15-37) Alanine Aminotransferase (ALT/SGPT) 26 U/L (12-78) Alkaline Phosphatase 84 U/L (46-116) C-Reactive Protein, Quantitative 15.4 mg/dL (0.00-0.90) Pro-B-Type Natriuretic Peptide 945 pg/mL (0-125) Total Protein 7.5 G/DL (6.4-8.2) Albumin 2.2 G/DL (3.4-5.0) Globulin 5.3 g/dL Albumin/Globulin Ratio 0.4 (1.0-2.7) Height (Feet): 5 Height (Inches): 5.00 Weight (Pounds): 308 Objective GeNL: nv Pulm: vent++ CV: rrr Abd: soft, nt, nd Ext: no cce Myron Condon MD Jun 26, 2020 07:04
--- NOTE | 2020-06-26 07:15 | NUR ---
NURSE HAND-OFF REPORT: Latest Vital Signs: Temperature 98.8 , Pulse 99 , B/P 113 /72 , Respiratory Rate 28 , O2 SAT 94 , Mechanical Ventilator, O2 Flow Rate . Vital Sign Comment: Stable EKG Rhythm: Sinus Rhythm Rhythm change?: N Notified?: Babs EDWARDS MD Response: Latest Meyers Fall Score: 70 Fall Risk: High Risk Safety Measures: Call light Within Reach, Bed Alarm Zone 1, Side Rails Side Rails x2, Bed position Low and Locked. Fall Precautions: Yellow Socks Report given to .
[2020-06-26] MEDS: Docusate 100mg/10ml Liq GT SCH ×2 (09:00→20:07)
--- NOTE | 2020-06-26 09:06 | NUR ---
RD ASSESSMENT & RECOMMENDATIONS SEE CARE ACTIVITY FOR COMPLETE ASSESSMENT DAILY ESTIMATED NEEDS: Needs based on Critical care, obesity 11-14kcal/kg actual body wt (140kg) kcals/kg 0688-6553 total kcals 1.5-2.0g prot/kg IBW (64.5kg) g protein/kg 96-129 g total protein 25-30ml/kg abw (83kg) mL/kg 4380-9252 total fluid mLs NUTRITION DIAGNOSIS: Swallowing difficulty R/T respiratory failure as evidenced by pt orally intubated and sedated, on OGT feeds, held at this time. CURRENT TF: Vital 1.2 goal of 60ml/hr ENTERAL NUTRITION RECOMMENDATIONS: Vital AF 1.2 @ 60ml/hr x 24 hrs to provide 1440ml, 1728kcal, 108g prot, 1168ml free water * As able, restart TF @30ml/hr, advance as tolerated to goal. * TF @ goal meeds 100% est kcal/prot needs * HOB over 30 degrees/ water flush per MD ADDITIONAL RECOMMENDATIONS: * Calibrated bedscale wt * Monitor Propofol rate, need for TF adjustment-> now off * Monitor BGs closely : now improved, on NISS only * Pt w/ rectal tube- DC OR HOLD COLACE and Miralax * F/up w/ bed change and ability to restart TF -> TF held since 06/22 .
--- NOTE | 2020-06-26 09:07 | NUR ---
CASE MANAGEMENT:REVIEW 06/26/20 SI: COVID PNA ACUTE RESPIRATORY FAILURE~ INTUBATED 98.5 96 26 110/70 94% ON VENT W/80% FIO2 H/H-9.5/30.2 CO2+33 PCO2+54.2 PO2-62.2 HCO3+35.3 IS: VERSED GTT IVF@50/HR IV LASIX QD IV PROTONIX Q12 LOVENOX SQ QD MIDODRINE NG Q8HRS : ICU STATUS DCP: FROM HOME PLAN: WEAN TOLERATED
[2020-06-26] MEDS: Pantoprazole Inj IVP SCH ×2 (09:11→20:07)
[2020-06-26] MEDS: Enoxaparin 40mg Inj SUBQ SCH (09:13)
[2020-06-26] MEDS: D5 1/2NS 1,000 ML IV SCH (09:13)
--- NOTE | 2020-06-26 09:30 | General Progress Note ---
Subjective Constitutional: Reports: weakness Allergies: Coded Allergies: No Known Allergies (Unverified , 05/28/20) All Systems: reviewed and negative except above Subjective intubated sedated ng in icu Objective Last 24 Hour Vital Signs Date Time Temp Pulse Resp B/P (MAP) Pulse Ox O2 Delivery O2 Flow Rate FiO2 06/26/20 08:00 80 06/26/20 08:00 98.5 96 26 110/70 (83) 94 06/26/20 08:00 Mechanical Ventilator Mechanical Ventilator 06/26/20 07:28 101 06/26/20 07:00 99 28 113/72 (86) 94 06/26/20 07:00 30 Mechanical Ventilator 80 06/26/20 06:30 104 30 06/26/20 06:00 104 22 105/72 (83) 97 06/26/20 06:00 30 Mechanical Ventilator 80 06/26/20 05:00 28 Mechanical Ventilator 80 06/26/20 05:00 111 32 118/99 (105) 95 06/26/20 04:00 Mechanical Ventilator Mechanical Ventilator 06/26/20 04:00 98.8 106 29 109/67 (81) 96 06/26/20 04:00 80 06/26/20 04:00 37 Mechanical Ventilator 80 06/26/20 03:51 106 06/26/20 03:18 80 06/26/20 03:17 105 27 60 06/26/20 03:00 26 Mechanical Ventilator 80 06/26/20 03:00 110 36 112/78 (89) 91 06/26/20 02:45 30 Mechanical Ventilator 80 06/26/20 02:30 20 Mechanical Ventilator 80 06/26/20 02:09 32 Mechanical Ventilator 80 06/26/20 02:00 109 29 104/71 (82) 98 06/26/20 02:00 36 Mechanical Ventilator 80 06/26/20 01:00 101 28 101/68 (79) 99 06/26/20 01:00 34 Mechanical Ventilator 80 06/26/20 00:00 98.5 109 25 113/71 (85) 97 06/26/20 00:00 20 Mechanical Ventilator 80 06/26/20 00:00 Mechanical Ventilator Mechanical Ventilator 06/25/20 23:45 20 Mechanical Ventilator 80 06/25/20 23:30 21 Mechanical Ventilator 60 06/25/20 23:22 116 27 60 06/25/20 23:00 117 2/2/21 23:00 118 28 114/78 (90) 96 06/25/20 22:30 25 Mechanical Ventilator 60 06/25/20 22:15 20 Mechanical Ventilator 60 06/25/20 22:00 122 22 115/92 (100) 90 06/25/20 22:00 15 Mechanical Ventilator 60 06/25/20 21:45 36 Mechanical Ventilator 60 06/25/20 21:30 35 Mechanical Ventilator 60 06/25/20 21:15 38 Mechanical Ventilator 60 06/25/20 21:00 113 46 128/97 (107) 85 06/25/20 21:00 40 Mechanical Ventilator 60 06/25/20 20:43 33 Mechanical Ventilator 60 06/25/20 20:00 60 06/25/20 20:00 35 Mechanical Ventilator 60 06/25/20 20:00 Mechanical Ventilator Mechanical Ventilator 06/25/20 20:00 97.7 107 30 117/77 (90) 95 06/25/20 19:35 110 06/25/20 19:21 106 27 60 06/25/20 19:00 34 Mechanical Ventilator 60 06/25/20 19:00 109 28 117/80 (92) 91 06/25/20 18:00 108 30 113/77 (89) 93 06/25/20 17:20 60 06/25/20 17:10 103 32 107/73 (84) 96 06/25/20 17:00 104 32 70 06/25/20 16:00 103 06/25/20 16:00 Mechanical Ventilator 06/25/20 16:00 98.8 103 32 113/77 (89) 96 06/25/20 16:00 Mechanical Ventilator Mechanical Ventilator 06/25/20 15:43 70 06/25/20 15:00 Mechanical Ventilator 06/25/20 15:00 101 28 122/84 (97) 100 06/25/20 15:00 101 30 80 06/25/20 14:01 27 Mechanical Ventilator 80 06/25/20 14:00 27 Mechanical Ventilator 80 06/25/20 14:00 106 32 107/32 (57) 98 06/25/20 13:00 110 32 116/77 (90) 98 06/25/20 13:00 32 Mechanical Ventilator 80 06/25/20 12:20 80 06/25/20 12:20 80 06/25/20 12:00 Mechanical Ventilator Mechanical Ventilator 06/25/20 12:00 41 Mechanical Ventilator 90 06/25/20 12:00 99.0 119 41 102/59 (73) 100 06/25/20 12:00 105 06/25/20 12:00 90 06/25/20 11:40 119 34 90 06/25/20 11:00 107 31 95/55 (68) 98 06/25/20 11:00 31 Mechanical Ventilator 90 06/25/20 10:30 109 33 104/63 (77) 99 06/25/20 10:00 33 Mechanical Ventilator 90 06/25/20 10:00 106 33 102/63 (76) 98 06/25/20 09:30 106 27 107/67 (80) 97 Intake and Output 06/25/20 06/26/20 19:00 07:00 Intake Total 731 ml 928.0 ml Output Total 600 ml 390 ml Balance 131 ml 538.0 ml IV Total 731 ml 928.0 ml Output Urine Total 490 ml 390 ml Stool Total 110 ml # Bowel Movements 3 53 Laboratory Tests 06/25/20 09:46: Arterial Blood pH 7.432, Arterial Blood Partial Pressure CO2 48.9H, Arterial Blood Partial Pressure O2 69.2L, Arterial Blood HCO3 31.9H, Arterial Blood Oxygen Saturation 92.2L, Arterial Blood Base Excess 6.7H, Jeremiah Test Positive 06/26/20 04:15: White Blood Count 9.0, Red Blood Count 3.28L, Hemoglobin 9.5L, Hematocrit 30.2L, Mean Corpuscular Volume 92, Mean Corpuscular Hemoglobin 28.9, Mean Corpuscular Hemoglobin Concent 31.4L, Red Cell Distribution Width 16.5H, Platelet Count 223, Mean Platelet Volume 7.2, Neutrophils (%) (Auto) 75.5H, Lymphocytes (%) (Auto) 15.1L, Monocytes (%) (Auto) 3.9, Eosinophils (%) (Auto) 4.8H, Basophils (%) (Auto) 0.7, Sodium Level 139, Potassium Level 4.4, Chloride Level 99, Carbon Dioxide Level 33H, Anion Gap 7, Blood Urea Nitrogen 19H, Creatinine 0.5L, Estimat Glomerular Filtration Rate > 60, Glucose Level 123H, Uric Acid 1.8L, Calcium Level 9.1, Phosphorus Level 2.9, Magnesium Level 1.8, Total Bilirubin 1.7H, Direct Bilirubin 0.4H, Aspartate Amino Transf (AST/SGOT) 44H, Alanine Aminotransferase (ALT/SGPT) 26, Alkaline Phosphatase 84, C-Reactive Protein, Quantitative 15.4H, Pro-B-Type Natriuretic Peptide 945H, Total Protein 7.5, Albumin 2.2L, Globulin 5.3, Albumin/Globulin Ratio 0.4L 06/26/20 08:43: Arterial Blood pH 7.432, Arterial Blood Partial Pressure CO2 54.2H, Arterial Blood Partial Pressure O2 62.2L, Arterial Blood HCO3 35.3H, Arterial Blood Oxyge n Saturation 90.3L, Arterial Blood Base Excess 9.6*H, Jeremiah Test Positive Height (Feet): 5 Height (Inches): 5.00 Weight (Pounds): 308 General Appearance: lethargic EENT: normal ENT inspection Neck: normal alignment Cardiovascular: normal peripheral pulses, normal rate, regular rhythm Respiratory/Chest: chest wall non-tender, lungs clear, normal breath sounds Abdomen: normal bowel sounds, non tender, soft Extremities: normal inspection Edema: no edema noted Arm (L), no edema noted Arm (R), no edema noted Leg (L), no edema noted Leg (R), no edema noted Pedal (L), no edema noted Pedal (R), no edema noted Generalized Neurologic: motor weakness Skin: normal pigmentation, warm/dry Assessment/Plan Problem List: (1) Hypoxia ICD Codes: R09.02 - Hypoxemia SNOMED: 171610761 (2) Respiratory failure ICD Codes: J96.90 - Respiratory failure, unspecified, unspecified whether with hypoxia or hypercapnia SNOMED: 994778243 (3) Respiratory distress ICD Codes: R06.03 - Acute respiratory distress; J12.82 - Pneumonia due to coronavirus disease 2019 SNOMED: 389776752 (4) Pneumonia due to COVID-19 virus ICD Codes: U07.1 - COVID-19; J12.82 - Pneumonia due to coronavirus disease 2019 SNOMED: 998643718848748869 Status: unchanged Assessment/Plan: vent abx id pulm f/u cbc bmp am Tank Del Cid DO Jun 26, 2020 09:30
--- NOTE | 2020-06-26 10:45 | Pulmonology Progress Note ---
Subjective ROS Limited/Unobtainable: Yes Interval Events: Remains intubated Constitutional: Denies: fever HEENT: Repors: no symptoms Respiratory: Reports: no symptoms Cardiovascular: Reports: no symptoms Gastrointestinal/Abdominal: Reports: no symptoms Genitourinary: Reports: no symptoms Allergies: Coded Allergies: No Known Allergies (Unverified , 05/28/20) All Systems: reviewed and negative except above Objective Last 24 Hour Vital Signs Date Time Temp Pulse Resp B/P (MAP) Pulse Ox O2 Delivery O2 Flow Rate FiO2 06/26/20 10:00 93 22 103/69 (80) 96 06/26/20 09:00 94 25 100/66 (77) 95 06/26/20 08:00 80 06/26/20 08:00 98.5 96 26 110/70 (83) 94 06/26/20 08:00 Mechanical Ventilator Mechanical Ventilator 06/26/20 07:28 101 06/26/20 07:00 99 28 113/72 (86) 94 06/26/20 07:00 30 Mechanical Ventilator 80 06/26/20 06:30 104 30 06/26/20 06:00 104 22 105/72 (83) 97 06/26/20 06:00 30 Mechanical Ventilator 80 06/26/20 05:00 28 Mechanical Ventilator 80 06/26/20 05:00 111 32 118/99 (105) 95 06/26/20 04:00 Mechanical Ventilator Mechanical Ventilator 06/26/20 04:00 98.8 106 29 109/67 (81) 96 06/26/20 04:00 80 06/26/20 04:00 37 Mechanical Ventilator 80 06/26/20 03:51 106 06/26/20 03:18 80 06/26/20 03:17 105 27 60 06/26/20 03:00 26 Mechanical Ventilator 80 06/26/20 03:00 110 36 112/78 (89) 91 06/26/20 02:45 30 Mechanical Ventilator 80 06/26/20 02:30 20 Mechanical Ventilator 80 06/26/20 02:09 32 Mechanical Ventilator 80 06/26/20 02:00 109 29 104/71 (82) 98 06/26/20 02:00 36 Mechanical Ventilator 80 06/26/20 01:00 101 28 101/68 (79) 99 06/26/20 01:00 34 Mechanical Ventilator 80 06/26/20 00:00 98.5 109 25 113/71 (85) 97 06/26/20 00:00 20 Mechanical Ventilator 80 06/26/20 00:00 Mechanical Ventilator Mechanical Ventilator 06/25/20 23:45 20 Mechanical Ventilator 80 06/25/20 23:30 21 Mechanical Ventilator 60 06/25/20 23:22 116 27 60 06/25/20 23:00 117 06/25/20 23:00 118 28 114/78 (90) 96 06/25/20 22:30 25 Mechanical Ventilator 60 06/25/20 22:15 20 Mechanical Ventilator 60 06/25/20 22:00 122 22 115/92 (100) 90 06/25/20 22:00 15 Mechanical Ventilator 60 06/25/20 21:45 36 Mechanical Ventilator 60 06/25/20 21:30 35 Mechanical Ventilator 60 06/25/20 21:15 38 Mechanical Ventilator 60 06/25/20 21:00 113 46 128/97 (107) 85 06/25/20 21:00 40 Mechanical Ventilator 60 06/25/20 20:43 33 Mechanical Ventilator 60 06/25/20 20:00 60 06/25/20 20:00 35 Mechanical Ventilator 60 06/25/20 20:00 Mechanical Ventilator Mechanical Ventilator 06/25/20 20:00 97.7 107 30 117/77 (90) 95 06/25/20 19:35 110 06/25/20 19:21 106 27 60 06/25/20 19:00 34 Mechanical Ventilator 60 06/25/20 19:00 109 28 117/80 (92) 91 06/25/20 18:00 108 30 113/77 (89) 93 06/25/20 17:20 60 06/25/20 17:10 103 32 107/73 (84) 96 06/25/20 17:00 104 32 70 06/25/20 16:00 103 06/25/20 16:00 Mechanical Ventilator 06/25/20 16:00 98.8 103 32 113/77 (89) 96 06/25/20 16:00 Mechanical Ventilator Mechanical Ventilator 06/25/20 15:43 70 06/25/20 15:00 Mechanical Ventilator 06/25/20 15:00 101 28 122/84 (97) 100 06/25/20 15:00 101 30 80 06/25/20 14:01 27 Mechanical Ventilator 80 06/25/20 14:00 27 Mechanical Ventilator 80 06/25/20 14:00 106 32 107/32 (57) 98 06/25/20 13:00 110 32 116/77 (90) 98 06/25/20 13:00 32 Mechanical Ventilator 80 06/25/20 12:20 80 06/25/20 12:20 80 06/25/20 12:00 Mechanical Ventilator Mechanical Ventilator 06/25/20 12:00 41 Mechanical Ventilator 90 06/25/20 12:00 99.0 119 41 102/59 (73) 100 06/25/20 12:00 105 06/25/20 12:00 90 06/25/20 11:40 119 34 90 06/25/20 11:00 107 31 95/55 (68) 98 06/25/20 11:00 31 Mechanical Ventilator 90 Intake and Output 06/25/20 06/26/20 19:00 07:00 Intake Total 731 ml 928.0 ml Output Total 600 ml 390 ml Balance 131 ml 538.0 ml IV Total 731 ml 928.0 ml Output Urine Total 490 ml 390 ml Stool Total 110 ml # Bowel Movements 3 53 General Appearance: no acute distress HEENT: normocephalic Respiratory: chest wall non-tender Cardiovascular: normal peripheral pulses Abdomen: normal bowel sounds Laboratory Tests 06/26/20 04:15: White Blood Count 9.0, Red Blood Count 3.28L, Hemoglobin 9.5L, Hematocrit 30.2L, Mean Corpuscular Volume 92, Mean Corpuscular Hemoglobin 28.9, Mean Corpuscular Hemoglobin Concent 31.4L, Red Cell Distribution Width 16.5H, Platelet Count 223, Mean Platelet Volume 7.2, Neutrophils (%) (Auto) 75.5H, Lymphocytes (%) (Auto) 15.1L, Monocytes (%) (Auto) 3.9, Eosinophils (%) (Auto) 4.8H, Basophils (%) (Auto) 0.7, Sodium Level 139, Potassium Level 4.4, Chloride Level 99, Carbon Dioxide Level 33H, Anion Gap 7, Blood Urea Nitrogen 19H, Creatinine 0.5L, Estimat Glomerular Filtration Rate > 60, Glucose Level 123H, Uric Acid 1.8L, Calcium Level 9.1, Phosphorus Level 2.9, Magnesium Level 1.8, Total Bilirubin 1.7H, Direct Bilirubin 0.4H, Aspartate Amino Transf (AST/SGOT) 44H, Alanine Aminotransferase (ALT/SGPT) 26, Alkaline Phosphatase 84, C-Reactive Protein, Quantitative 15.4H, Pro-B-Type Natriuretic Peptide 945H, Total Protein 7.5, Albumin 2.2L, Globulin 5.3, Albumin/Globulin Ratio 0.4L 06/26/20 08:43: Arterial Blood pH 7.432, Arterial Blood Partial Pressure CO2 54.2H, Arterial Blood Partial Pressure O2 62.2L, Arterial Blood HCO3 35.3H, Arterial Blood Oxygen Saturation 90.3L, Arterial Blood Base Excess 9.6*H, Jeremiah Test Positive Current Medications Medications (Trade) Dose Ordered Sig/Zelda Route PRN Reason Start Time Stop Time Status Last Admin Dose Admin Acetaminophen (Tylenol) 650 mg Q4H PRN NG Temp >100.5 05/31/20 21:45 06/30/20 21:44 06/21/20 12:19 Acetaminophen (Tylenol) 650 mg Q6H PRN NG Mild Pain (Pain Scale 1-3) 06/06/20 18:00 07/06/20 17:59 06/13/20 23:10 Chlorhexidine Gluconate (Inna-Hex 2%) 1 applic DAILY@2000 TOPIC 05/30/20 20:00 08/28/20 19:59 06/25/20 20:43 Dextrose (Dextrose 50%) 25 ml Q30M PRN IV Hypoglycemia 06/05/20 10:45 09/03/20 10:44 Dextrose (Dextrose 50%) 50 ml Q30M PRN IV Hypoglycemia 06/05/20 10:45 09/03/20 10:44 Dextrose/Sodium Chloride 1,000 ml @ 50 mls/hr Q20H IV 06/24/20 16:30 07/24/20 16:29 06/26/20 09:13 Docusate Sodium (Colace) 100 mg Q12HR GT 06/07/20 21:00 07/07/20 20:59 06/25/20 20:44 Enoxaparin Sodium (Lovenox) 40 mg DAILY SUBQ 05/30/20 10:00 08/28/20 09:59 06/26/20 09:13 Furosemide (Lasix) 40 mg DAILY IV 06/22/20 09:00 07/22/20 08:59 06/26/20 09:11 Insulin Aspart (NovoLOG) EVERY 6 HOURS SUBQ 06/07/20 00:00 09/03/20 11:59 06/24/20 18:00 Midazolam HCl 100 mg/Sodium Chloride 200 ml @ 0 mls/hr Q24H PRN IV SEDATION 06/25/20 13:30 06/27/20 13:29 06/26/20 02:09 Midodrine (Pro-Amatine) 10 mg Q8HR ORAL 06/14/20 14:00 09/12/20 13:59 06/26/20 05:49 Pantoprazole (Protonix) 40 mg Q12HR IVP 06/13/20 21:00 07/03/20 08:59 06/26/20 09:11 Polyethylene Glycol (Miralax) 17 gm BEDTIME GT 06/07/20 21:00 07/07/20 20:59 06/25/20 20:44 Assessment/Plan Assessment/Plan 1. COVID-19 pneumonia -Intubated 05/28/20 - We will continue broad-spectrum antibiotics. -s/p solumedrol, Rocephin -Continue PEEP 7 - Peak airway pressures high; approx 48 now - FiO2 100% -> 90 ->80->60 ->40 ->80 ->100%; -will continue OGT feeding -Continue sedation; Need to keep patient completely sedated. - ABG slight improvement 2. Hyponatremia -Per primary MD 3. Elevated inflammatory markers - has high D dimer; Lovenox on hold due to hematuria 4. Decrease PEEP Continue weaning efforts May need trach Discussed with surgery Currently FiO2 too high for safe tracheostomy Long discussion with family who wish to wean her off the oxygen eventually instead of trach. Trach if "necessary" per family. Discussed again with niece. She was advised regarding poor prognosis. Javier Nava MD Jun 26, 2020 10:45
--- NOTE | 2020-06-26 11:04 | Nephrology Progress Note ---
Assessment/Plan Problem List: (1) DEVENDRA (acute kidney injury) (2) Morbid obesity (3) Diabetes mellitus out of control (4) Pneumonia due to COVID-19 virus (5) Respiratory failure Assessment Acute renal failure Obstructive uropathy, clogged Lennon Respiratory failure COVID-19 pneumonia Morbid obesity Plan June 26: Labs reviewed. Remains full code. Remains intubated. Back on NGT feeding. Continue to monitor renal parameters. June 25: Labs reviewed. Renal parameters stable. Remains full code. Due to positional status patient could not be fed via NG tube. Starting TPN? Is being entertained. Continue per consultants. June 24: Labs reviewed. Renal parameters stable. Remains full code. Remains intubated on ventilator. Continue per consultants. June 23: Labs reviewed. Renal parameters stable. Discussed with RN. Abnormal electrolyte addressed. Remains full code. Remains on ventilator. Continue per consultants. June 22: Labs reviewed. Low potassium addressed. Discussed with RAKEL Moran. Patient full code. Remains on ventilator. Continue to monitor renal parameters. June 21. Labs reviewed. Abnormal electrolyte addressed. Full code. Remains on ventilator. Medication list reviewed. Continue per pulmonary management. DC IV fluid, resume Lasix daily, check chest x-ray. June 20: Labs reviewed. Abnormal electrolytes. Patient remains full code. Continue per consultants. Noted and addressed June 19: Labs reviewed. Abnormal electrolytes noted and addressed. Remains intubated on ventilator. Remains full code. June 18: Labs reviewed. Remains intubated on ventilator. Full code. Abnormal electrolyte addressed. Continue as is. June 17: Labs reviewed. Abnormal electrolytes addressed. Patient remains full code and intubated on ventilator. Continue per consultants. Renal parameters are within normal limits. June 16: Labs reviewed. Potassium chloride replaced. Remains full code. Remains intubated on ventilator. Continue per consultants. Continue to monitor renal parameters. June 15: Labs reviewed. Serum creatinine 1. Stable from renal standpoint to view. Continue per consultants. June 14: Labs reviewed. Full code. Serum creatinine of 3.5 down to 1.4. Low potassium addressed. Continue per current treatment plan. Continue to monitor renal parameters. Midodrine started. Albumin bolus given. Previously: DC Lasix drip Increase Protonix dose Monitor renal parameters, electrolytes Per orders Subjective ROS Limited/Unobtainable: Yes Objective Objective Last 24 Hour Vital Signs Date Time Temp Pulse Resp B/P (MAP) Pulse Ox O2 Delivery O2 Flow Rate FiO2 06/26/20 10:00 93 22 103/69 (80) 96 06/26/20 09:00 94 25 100/66 (77) 95 06/26/20 08:00 80 06/26/20 08:00 98.5 96 26 110/70 (83) 94 06/26/20 08:00 Mechanical Ventilator Mechanical Ventilator 06/26/20 07:28 101 06/26/20 07:00 99 28 113/72 (86) 94 06/26/20 07:00 30 Mechanical Ventilator 80 06/26/20 06:30 104 30 06/26/20 06:00 104 22 105/72 (83) 97 06/26/20 06:00 30 Mechanical Ventilator 80 06/26/20 05:00 28 Mechanical Ventilator 80 06/26/20 05:00 111 32 118/99 (105) 95 06/26/20 04:00 Mechanical Ventilator Mechanical Ventilator 06/26/20 04:00 98.8 106 29 109/67 (81) 96 06/26/20 04:00 80 06/26/20 04:00 37 Mechanical Ventilator 80 06/26/20 03:51 106 06/26/20 03:18 80 06/26/20 03:17 105 27 60 06/26/20 03:00 26 Mechanical Ventilator 80 06/26/20 03:00 110 36 112/78 (89) 91 06/26/20 02:45 30 Mechanical Ventilator 80 06/26/20 02:30 20 Mechanical Ventilator 80 06/26/20 02:09 32 Mechanical Ventilator 80 06/26/20 02:00 109 29 104/71 (82) 98 06/26/20 02:00 36 Mechanical Ventilator 80 06/26/20 01:00 101 28 101/68 (79) 99 06/26/20 01:00 34 Mechanical Ventilator 80 06/26/20 00:00 98.5 109 25 113/71 (85) 97 06/26/20 00:00 20 Mechanical Ventilator 80 06/26/20 00:00 Mechanical Ventilator Mechanical Ventilator 06/25/20 23:45 20 Mechanical Ventilator 80 06/25/20 23:30 21 Mechanical Ventilator 60 06/25/20 23:22 116 27 60 06/25/20 23:00 117 06/25/20 23:00 118 28 114/78 (90) 96 06/25/20 22:30 25 Mechanical Ventilator 60 06/25/20 22:15 20 Mechanical Ventilator 60 06/25/20 22:00 122 22 115/92 (100) 90 06/25/20 22:00 15 Mechanical Ventilator 60 06/25/20 21:45 36 Mechanical Ventilator 60 06/25/20 21:30 35 Mechanical Ventilator 60 06/25/20 21:15 38 Mechanical Ventilator 60 06/25/20 21:00 113 46 128/97 (107) 85 06/25/20 21:00 40 Mechanical Ventilator 60 06/25/20 20:43 33 Mechanical Ventilator 60 06/25/20 20:00 60 06/25/20 20:00 35 Mechanical Ventilator 60 06/25/20 20:00 Mechanical Ventilator Mechanical Ventilator 06/25/20 20:00 97.7 107 30 117/77 (90) 95 06/25/20 19:35 110 06/25/20 19:21 106 27 60 06/25/20 19:00 34 Mechanical Ventilator 60 06/25/20 19:00 109 28 117/80 (92) 91 06/25/20 18:00 108 30 113/77 (89) 93 06/25/20 17:20 60 06/25/20 17:10 103 32 107/73 (84) 96 06/25/20 17:00 104 32 70 06/25/20 16:00 103 06/25/20 16:00 Mechanical Ventilator 06/25/20 16:00 98.8 103 32 113/77 (89) 96 06/25/20 16:00 Mechanical Ventilator Mechanical Ventilator 06/25/20 15:43 70 06/25/20 15:00 Mechanical Ventilator 06/25/20 15:00 101 28 122/84 (97) 100 06/25/20 15:00 101 30 80 06/25/20 14:01 27 Mechanical Ventilator 80 06/25/20 14:00 27 Mechanical Ventilator 80 06/25/20 14:00 106 32 107/32 (57) 98 06/25/20 13:00 110 32 116/77 (90) 98 06/25/20 13:00 32 Mechanical Ventilator 80 06/25/20 12:20 80 06/25/20 12:20 80 06/25/20 12:00 Mechanical Ventilator Mechanical Ventilator 06/25/20 12:00 41 Mechanical Ventilator 90 06/25/20 12:00 99.0 119 41 102/59 (73) 100 06/25/20 12:00 105 06/25/20 12:00 90 06/25/20 11:40 119 34 90 Intake and Output 06/25/20 06/26/20 19:00 07:00 Intake Total 731 ml 928.0 ml Output Total 600 ml 390 ml Balance 131 ml 538.0 ml IV Total 731 ml 928.0 ml Output Urine Total 490 ml 390 ml Stool Total 110 ml # Bowel Movements 3 53 Current Medications Medications (Trade) Dose Ordered Sig/Zelda Route PRN Reason Start Time Stop Time Status Last Admin Dose Admin Acetaminophen (Tylenol) 650 mg Q4H PRN NG Temp >100.5 05/31/20 21:45 06/30/20 21:44 06/21/20 12:19 Acetaminophen (Tylenol) 650 mg Q6H PRN NG Mild Pain (Pain Scale 1-3) 06/06/20 18:00 07/06/20 17:59 06/13/20 23:10 Chlorhexidine Gluconate (Inna-Hex 2%) 1 applic DAILY@2000 TOPIC 05/30/20 20:00 08/28/20 19:59 06/25/20 20:43 Dextrose (Dextrose 50%) 25 ml Q30M PRN IV Hypoglycemia 06/05/20 10:45 09/03/20 10:44 Dextrose (Dextrose 50%) 50 ml Q30M PRN IV Hypoglycemia 06/05/20 10:45 09/03/20 10:44 Dextrose/Sodium Chloride 1,000 ml @ 50 mls/hr Q20H IV 06/24/20 16:30 07/24/20 16:29 06/26/20 09:13 Docusate Sodium (Colace) 100 mg Q12HR GT 06/07/20 21:00 07/07/20 20:59 06/25/20 20:44 Enoxaparin Sodium (Lovenox) 40 mg DAILY SUBQ 05/30/20 10:00 08/28/20 09:59 06/26/20 09:13 Furosemide (Lasix) 40 mg DAILY IV 06/22/20 09:00 07/22/20 08:59 06/26/20 09:11 Insulin Aspart (NovoLOG) EVERY 6 HOURS SUBQ 06/07/20 00:00 09/03/20 11:59 06/24/20 18:00 Midazolam HCl 100 mg/Sodium Chloride 200 ml @ 0 mls/hr Q24H PRN IV SEDATION 06/25/20 13:30 06/27/20 13:29 06/26/20 02:09 Midodrine (Pro-Amatine) 10 mg Q8HR ORAL 06/14/20 14:00 09/12/20 13:59 06/26/20 05:49 Pantoprazole (Protonix) 40 mg Q12HR IVP 06/13/20 21:00 07/03/20 08:59 06/26/20 09:11 Polyethylene Glycol (Miralax) 17 gm BEDTIME GT 06/07/20 21:00 07/07/20 20:59 06/25/20 20:44 Laboratory Tests 06/26/20 04:15: White Blood Count 9.0, Red Blood Count 3.28L, Hemoglobin 9.5L, Hematocrit 30.2L, Mean Corpuscular Volume 92, Mean Corpuscular Hemoglobin 28.9, Mean Corpuscular Hemoglobin Concent 31.4L, Red Cell Distribution Width 16.5H, Platelet Count 223, Mean Platelet Volume 7.2, Neutrophils (%) (Auto) 75.5H, Lymphocytes (%) (Auto) 15.1L, Monocytes (%) (Auto) 3.9, Eosinophils (%) (Auto) 4.8H, Basophils (%) (Auto) 0.7, Sodium Level 139, Potassium Level 4.4, Chloride Level 99, Carbon Dioxide Level 33H, Anion Gap 7, Blood Urea Nitrogen 19H, Creatinine 0.5L, Estimat Glomerular Filtration Rate > 60, Glucose Level 123H, Uric Acid 1.8L, Calcium Level 9.1, Phosphorus Level 2.9, Magnesium Level 1.8, Total Bilirubin 1.7H, Direct Bilirubin 0.4H, Aspartate Amino Transf (AST/SGOT) 44H, Alanine Aminotransferase (ALT/SGPT) 26, Alkaline Phosphatase 84, C-Reactive Protein, Quantitative 15.4H, Pro-B-Type Natriuretic Peptide 945H, Total Protein 7.5, Albumin 2.2L, Globulin 5.3, Albumin/Globulin Ratio 0.4L 06/26/20 08:43: Arterial Blood pH 7.432, Arterial Blood Partial Pressure CO2 54.2H, Arterial Blood Partial Pressure O2 62.2L, Arterial Blood HCO3 35.3H, Arterial Blood Oxygen Saturation 90.3L, Arterial Blood Base Excess 9.6*H, Jeremiah Test Positive Height (Feet): 5 Height (Inches): 5.00 Weight (Pounds): 308 General Appearance: no apparent distress EENT: other - Intubated on ventilator Cardiovascular: tachycardia Respiratory/Chest: decreased breath sounds Abdomen: distended Rigo Tyler MD Jun 26, 2020 11:04
--- NOTE | 2020-06-26 11:18 | Infectious Diseases Prog Note ---
Assessment/Plan Assessment/Plan antibiotics : none A 1. covid 19 pneumonia on 80 % Fi O2 with 97 % saturation s/p remdesivir s/p solumedrol 2. respiratory failure 3. serratia pneumonia s/p rx P 1. continue off antibiotics 2. continue isolation Subjective ROS Limited/Unobtainable: Yes Allergies: Coded Allergies: No Known Allergies (Unverified , 05/28/20) Objective Last 24 Hour Vital Signs Date Time Temp Pulse Resp B/P (MAP) Pulse Ox O2 Delivery O2 Flow Rate FiO2 06/26/20 11:00 86 21 103/68 (80) 97 06/26/20 10:00 93 22 103/69 (80) 96 06/26/20 09:00 94 25 100/66 (77) 95 06/26/20 08:00 80 06/26/20 08:00 98.5 96 26 110/70 (83) 94 06/26/20 08:00 Mechanical Ventilator Mechanical Ventilator 06/26/20 07:28 101 06/26/20 07:00 99 28 113/72 (86) 94 06/26/20 07:00 30 Mechanical Ventilator 80 06/26/20 06:30 104 30 06/26/20 06:00 104 22 105/72 (83) 97 06/26/20 06:00 30 Mechanical Ventilator 80 06/26/20 05:00 28 Mechanical Ventilator 80 06/26/20 05:00 111 32 118/99 (105) 95 06/26/20 04:00 Mechanical Ventilator Mechanical Ventilator 06/26/20 04:00 98.8 106 29 109/67 (81) 96 06/26/20 04:00 80 06/26/20 04:00 37 Mechanical Ventilator 80 06/26/20 03:51 106 06/26/20 03:18 80 06/26/20 03:17 105 27 60 06/26/20 03:00 26 Mechanical Ventilator 80 06/26/20 03:00 110 36 112/78 (89) 91 06/26/20 02:45 30 Mechanical Ventilator 80 06/26/20 02:30 20 Mechanical Ventilator 80 06/26/20 02:09 32 Mechanical Ventilator 80 06/26/20 02:00 109 29 104/71 (82) 98 06/26/20 02:00 36 Mechanical Ventilator 80 06/26/20 01:00 101 28 101/68 (79) 99 2/3/21 01:00 34 Mechanical Ventilator 80 06/26/20 00:00 98.5 109 25 113/71 (85) 97 06/26/20 00:00 20 Mechanical Ventilator 80 06/26/20 00:00 Mechanical Ventilator Mechanical Ventilator 06/25/20 23:45 20 Mechanical Ventilator 80 06/25/20 23:30 21 Mechanical Ventilator 60 06/25/20 23:22 116 27 60 06/25/20 23:00 117 06/25/20 23:00 118 28 114/78 (90) 96 06/25/20 22:30 25 Mechanical Ventilator 60 06/25/20 22:15 20 Mechanical Ventilator 60 06/25/20 22:00 122 22 115/92 (100) 90 06/25/20 22:00 15 Mechanical Ventilator 60 06/25/20 21:45 36 Mechanical Ventilator 60 06/25/20 21:30 35 Mechanical Ventilator 60 06/25/20 21:15 38 Mechanical Ventilator 60 06/25/20 21:00 113 46 128/97 (107) 85 06/25/20 21:00 40 Mechanical Ventilator 60 06/25/20 20:43 33 Mechanical Ventilator 60 06/25/20 20:00 60 06/25/20 20:00 35 Mechanical Ventilator 60 06/25/20 20:00 Mechanical Ventilator Mechanical Ventilator 06/25/20 20:00 97.7 107 30 117/77 (90) 95 06/25/20 19:35 110 06/25/20 19:21 106 27 60 06/25/20 19:00 34 Mechanical Ventilator 60 06/25/20 19:00 109 28 117/80 (92) 91 06/25/20 18:00 108 30 113/77 (89) 93 06/25/20 17:20 60 06/25/20 17:10 103 32 107/73 (84) 96 06/25/20 17:00 104 32 70 06/25/20 16:00 103 06/25/20 16:00 Mechanical Ventilator 06/25/20 16:00 98.8 103 32 113/77 (89) 96 06/25/20 16:00 Mechanical Ventilator Mechanical Ventilator 06/25/20 15:43 70 06/25/20 15:00 Mechanical Ventilator 06/25/20 15:00 101 28 122/84 (97) 100 06/25/20 15:00 101 30 80 06/25/20 14:01 27 Mechanical Ventilator 80 06/25/20 14:00 27 Mechanical Ventilator 80 06/25/20 14:00 106 32 107/32 (57) 98 06/25/20 13:00 110 32 116/77 (90) 98 06/25/20 13:00 32 Mechanical Ventilator 80 06/25/20 12:20 80 06/25/20 12:20 80 06/25/20 12:00 Mechanical Ventilator Mechanical Ventilator 06/25/20 12:00 41 Mechanical Ventilator 90 06/25/20 12:00 99.0 119 41 102/59 (73) 100 06/25/20 12:00 105 06/25/20 12:00 90 06/25/20 11:40 119 34 90 Height (Feet): 5 Height (Inches): 5.00 Weight (Pounds): 308 HEENT: other - intubated Respiratory/Chest: lungs clear Cardiovascular: normal rate, regular rhythm, no gallop/murmur Abdomen: soft, non tender Extremities: no edema Laboratory Tests Test 06/26/20 04:15 06/26/20 08:43 White Blood Count 9.0 K/UL (4.8-10.8) Red Blood Count 3.28 M/UL (4.20-5.40) L Hemoglobin 9.5 G/DL (12.0-16.0) L Hematocrit 30.2 % (37.0-47.0) L Mean Corpuscular Volume 92 FL (80-99) Mean Corpuscular Hemoglobin 28.9 PG (27.0-31.0) Mean Corpuscular Hemoglobin Concent 31.4 G/DL (32.0-36.0) L Red Cell Distribution Width 16.5 % (11.6-14.8) H Platelet Count 223 K/UL (150-450) Mean Platelet Volume 7.2 FL (6.5-10.1) Neutrophils (%) (Auto) 75.5 % (45.0-75.0) H Lymphocytes (%) (Auto) 15.1 % (20.0-45.0) L Monocytes (%) (Auto) 3.9 % (1.0-10.0) Eosinophils (%) (Auto) 4.8 % (0.0-3.0) H Basophils (%) (Auto) 0.7 % (0.0-2.0) Sodium Level 139 MMOL/L (136-145) Potassium Level 4.4 MMOL/L (3.5-5.1) Chloride Level 99 MMOL/L (98-107) Carbon Dioxide Level 33 MMOL/L (21-32) H Anion Gap 7 mmol/L (5-15) Blood Urea Nitrogen 19 mg/dL (7-18) H Creatinine 0.5 MG/DL (0.55-1.30) L Estimat Glomerular Filtration Rate > 60 mL/min (>60) Glucose Level 123 MG/DL (74-106) H Uric Acid 1.8 MG/DL (2.6-7.2) L Calcium Level 9.1 MG/DL (8.5-10.1) Phosphorus Level 2.9 MG/DL (2.5-4.9) Magnesium Level 1.8 MG/DL (1.8-2.4) Total Bilirubin 1.7 MG/DL (0.2-1.0) H Direct Bilirubin 0.4 MG/DL (0.0-0.3) H Aspartate Amino Transf (AST/SGOT) 44 U/L (15-37) H Alanine Aminotransferase (ALT/SGPT) 26 U/L (12-78) Alkaline Phosphatase 84 U/L (46-116) C-Reactive Protein, Quantitative 15.4 mg/dL (0.00-0.90) H Pro-B-Type Natriuretic Peptide 945 pg/mL (0-125) H Total Protein 7.5 G/DL (6.4-8.2) Albumin 2.2 G/DL (3.4-5.0) L Globulin 5.3 g/dL Albumin/Globulin Ratio 0.4 (1.0-2.7) L Arterial Blood pH 7.432 (7.350-7.450) Arterial Blood Partial Pressure CO2 54.2 mmHg (35.0-45.0) H Arterial Blood Partial Pressure O2 62.2 mmHg (75.0-100.0) L Arterial Blood HCO3 35.3 mmol/L (22.0-26.0) H Arterial Blood Oxygen Saturation 90.3 % (95-100) L Arterial Blood Base Excess 9.6 (-2-2) *H Jeremiah Test Positive Current Medications Medications (Trade) Dose Ordered Sig/Zelda Route PRN Reason Start Time Stop Time Status Last Admin Dose Admin Acetaminophen (Tylenol) 650 mg Q4H PRN NG Temp >100.5 05/31/20 21:45 06/30/20 21:44 06/21/20 12:19 Acetaminophen (Tylenol) 650 mg Q6H PRN NG Mild Pain (Pain Scale 1-3) 06/06/20 18:00 07/06/20 17:59 06/13/20 23:10 Chlorhexidine Gluconate (Inna-Hex 2%) 1 applic DAILY@2000 TOPIC 05/30/20 20:00 08/28/20 19:59 06/25/20 20:43 Dextrose (Dextrose 50%) 25 ml Q30M PRN IV Hypoglycemia 06/05/20 10:45 09/03/20 10:44 Dextrose (Dextrose 50%) 50 ml Q30M PRN IV Hypoglycemia 06/05/20 10:45 09/03/20 10:44 Dextrose/Sodium Chloride 1,000 ml @ 50 mls/hr Q20H IV 06/24/20 16:30 07/24/20 16:29 06/26/20 09:13 Docusate Sodium (Colace) 100 mg Q12HR GT 06/07/20 21:00 07/07/20 20:59 06/25/20 20:44 Enoxaparin Sodium (Lovenox) 40 mg DAILY SUBQ 05/30/20 10:00 08/28/20 09:59 06/26/20 09:13 Furosemide (Lasix) 40 mg DAILY IV 06/22/20 09:00 07/22/20 08:59 06/26/20 09:11 Insulin Aspart (NovoLOG) EVERY 6 HOURS SUBQ 06/07/20 00:00 09/03/20 11:59 06/24/20 18:00 Midazolam HCl 100 mg/Sodium Chloride 200 ml @ 0 mls/hr Q24H PRN IV SEDATION 06/25/20 13:30 06/27/20 13:29 06/26/20 02:09 Midodrine (Pro-Amatine) 10 mg Q8HR ORAL 06/14/20 14:00 09/12/20 13:59 06/26/20 05:49 Pantoprazole (Protonix) 40 mg Q12HR IVP 06/13/20 21:00 07/03/20 08:59 06/26/20 09:11 Polyethylene Glycol (Miralax) 17 gm BEDTIME GT 06/07/20 21:00 07/07/20 20:59 06/25/20 20:44 Fili Mcelroy MD Jun 26, 2020 11:17
--- NOTE | 2020-06-26 11:19 | NUR ---
EDITORIAL SPECIALIST NOTE Bioethic committee manager branch Dr. Brown reviewed the case, is in agreement that DNR may be appropriate. However, the family is involved w/ decision making for this pt. Thus, active communication is recommended between the family and the team. Please see Dr. Brown's note.
--- NOTE | 2020-06-26 12:11 | General Progress Note ---
Progress Note Progress Note Bioethics Committeee Asked by Dr. Nava to consult for Bioethics regarding code status. This unfortunate 50 year old has been hospitalized for one month and on life support with severe Covid 19 pneumonia. Her lungs are severely damaged and gas exchange is poor nwith vtracheostomy anticipated. Her prognosismis nextremely poor and she would be unlikely to survive resuscitation should she experience cardiac arrest. Ongoing aggressive care is likely to be futile. According to social media community manager family is not understanding DNR order explained to them to them by ZULLY and Dr. Nava. The Commiittee is of the opinion that DNR order is appropriate for the clinical circumstances. We do, however, suggest additional effort to explain grim prognosis and obtain agreement from family for no code order. Lanre Brown M.D. Lanre Brown MD Jun 26, 2020 12:11
--- NOTE | 2020-06-26 12:25 | Diagnostic Imaging Report ---
Indication: Shortness of breath Technique: XRAY Chest 1v Comparison: 06/21/2020 Findings: Limited evaluation due to underpenetration. Extensive bilateral infiltrates appear worsened compared to 06/21/2020. No appreciable pneumothorax. Endotracheal and enteric tubes remain in place, satisfactory position. Right arm PICC line remains in place. Heart borders are obscured. Osseous structures without appreciable acute abnormality. Impression: Extensive bilateral infiltrates, slightly increased compared to the prior exam.
--- NOTE | 2020-06-26 13:57 | Surgery Progress Note ---
Surgery Progress Note Subjective Additional Comments ill appearing weaning down vent but still desaturates at times no n/v labs noted Objective Last 24 Hour Vital Signs Date Time Temp Pulse Resp B/P (MAP) Pulse Ox O2 Delivery O2 Flow Rate FiO2 06/26/20 13:05 28 Mechanical Ventilator 95 06/26/20 13:00 92 29 118/74 (89) 94 06/26/20 12:45 91 28 115/73 (87) 96 06/26/20 12:35 95 06/26/20 12:30 97 29 116/71 (86) 86 06/26/20 12:26 91 27 118/78 (91) 91 06/26/20 12:15 87 26 93 06/26/20 12:04 85 06/26/20 12:00 Mechanical Ventilator Mechanical Ventilator 06/26/20 12:00 80 06/26/20 12:00 98.1 85 24 106/71 (83) 93 06/26/20 11:00 21 Mechanical Ventilator 80 06/26/20 11:00 86 21 103/68 (80) 97 06/26/20 10:00 22 Mechanical Ventilator 80 06/26/20 10:00 93 22 103/69 (80) 96 06/26/20 09:00 94 25 100/66 (77) 95 06/26/20 09:00 25 Mechanical Ventilator 80 06/26/20 08:45 22 Mechanical Ventilator 80 06/26/20 08:45 95 15 96 06/26/20 08:30 94 26 106/63 (77) 95 06/26/20 08:30 22 Mechanical Ventilator 80 06/26/20 08:15 97 27 93 06/26/20 08:00 80 06/26/20 08:00 98.5 96 26 110/70 (83) 94 06/26/20 08:00 26 Mechanical Ventilator 80 06/26/20 08:00 Mechanical Ventilator Mechanical Ventilator 06/26/20 07:28 101 06/26/20 07:00 99 28 113/72 (86) 94 06/26/20 07:00 30 Mechanical Ventilator 80 06/26/20 06:30 104 30 06/26/20 06:00 104 22 105/72 (83) 97 06/26/20 06:00 30 Mechanical Ventilator 80 06/26/20 05:00 28 Mechanical Ventilator 80 06/26/20 05:00 111 32 118/99 (105) 95 06/26/20 04:00 Mechanical Ventilator Mechanical Ventilator 06/26/20 04:00 98.8 106 29 109/67 (81) 96 06/26/20 04:00 80 06/26/20 04:00 37 Mechanical Ventilator 80 06/26/20 03:51 106 06/26/20 03:18 80 06/26/20 03:17 105 27 60 06/26/20 03:00 26 Mechanical Ventilator 80 06/26/20 03:00 110 36 112/78 (89) 91 06/26/20 02:45 30 Mechanical Ventilator 80 06/26/20 02:30 20 Mechanical Ventilator 80 06/26/20 02:09 32 Mechanical Ventilator 80 06/26/20 02:00 109 29 104/71 (82) 98 06/26/20 02:00 36 Mechanical Ventilator 80 06/26/20 01:00 101 28 101/68 (79) 99 06/26/20 01:00 34 Mechanical Ventilator 80 06/26/20 00:00 98.5 109 25 113/71 (85) 97 06/26/20 00:00 20 Mechanical Ventilator 80 06/26/20 00:00 Mechanical Ventilator Mechanical Ventilator 06/25/20 23:45 20 Mechanical Ventilator 80 06/25/20 23:30 21 Mechanical Ventilator 60 06/25/20 23:22 116 27 60 06/25/20 23:00 117 06/25/20 23:00 118 28 114/78 (90) 96 06/25/20 22:30 25 Mechanical Ventilator 60 06/25/20 22:15 20 Mechanical Ventilator 60 06/25/20 22:00 122 22 115/92 (100) 90 06/25/20 22:00 15 Mechanical Ventilator 60 06/25/20 21:45 36 Mechanical Ventilator 60 06/25/20 21:30 35 Mechanical Ventilator 60 06/25/20 21:15 38 Mechanical Ventilator 60 06/25/20 21:00 113 46 128/97 (107) 85 06/25/20 21:00 40 Mechanical Ventilator 60 06/25/20 20:43 33 Mechanical Ventilator 60 06/25/20 20:00 60 06/25/20 20:00 35 Mechanical Ventilator 60 06/25/20 20:00 Mechanical Ventilator Mechanical Ventilator 06/25/20 20:00 97.7 107 30 117/77 (90) 95 06/25/20 19:35 110 06/25/20 19:21 106 27 60 06/25/20 19:00 34 Mechanical Ventilator 60 06/25/20 19:00 109 28 117/80 (92) 91 06/25/20 18:00 108 30 113/77 (89) 93 06/25/20 17:20 60 06/25/20 17:10 103 32 107/73 (84) 96 06/25/20 17:00 104 32 70 06/25/20 16:00 103 06/25/20 16:00 Mechanical Ventilator 06/25/20 16:00 98.8 103 32 113/77 (89) 96 06/25/20 16:00 Mechanical Ventilator Mechanical Ventilator 06/25/20 15:43 70 06/25/20 15:00 Mechanical Ventilator 06/25/20 15:00 101 28 122/84 (97) 100 06/25/20 15:00 101 30 80 06/25/20 14:01 27 Mechanical Ventilator 80 06/25/20 14:00 27 Mechanical Ventilator 80 06/25/20 14:00 106 32 107/32 (57) 98 I&O Intake and Output 06/25/20 06/26/20 19:00 07:00 Intake Total 731 ml 928.0 ml Output Total 600 ml 390 ml Balance 131 ml 538.0 ml IV Total 731 ml 928.0 ml Output Urine Total 490 ml 390 ml Stool Total 110 ml # Bowel Movements 3 53 Dressing: saturated Cardiovascular: RSR Respiratory: decreased breath sounds Abdomen: non-tender, present bowel sounds, non-distended Extremities: edema, no tenderness, no cyanosis Laboratory Tests Test 06/26/20 04:15 06/26/20 08:43 White Blood Count 9.0 K/UL (4.8-10.8) Red Blood Count 3.28 M/UL (4.20-5.40) L Hemoglobin 9.5 G/DL (12.0-16.0) L Hematocrit 30.2 % (37.0-47.0) L Mean Corpuscular Volume 92 FL (80-99) Mean Corpuscular Hemoglobin 28.9 PG (27.0-31.0) Mean Corpuscular Hemoglobin Concent 31.4 G/DL (32.0-36.0) L Red Cell Distribution Width 16.5 % (11.6-14.8) H Platelet Count 223 K/UL (150-450) Mean Platelet Volume 7.2 FL (6.5-10.1) Neutrophils (%) (Auto) 75.5 % (45.0-75.0) H Lymphocytes (%) (Auto) 15.1 % (20.0-45.0) L Monocytes (%) (Auto) 3.9 % (1.0-10.0) Eosinophils (%) (Auto) 4.8 % (0.0-3.0) H Basophils (%) (Auto) 0.7 % (0.0-2.0) Sodium Level 139 MMOL/L (136-145) Potassium Level 4.4 MMOL/L (3.5-5.1) Chloride Level 99 MMOL/L (98-107) Carbon Dioxide Level 33 MMOL/L (21-32) H Anion Gap 7 mmol/L (5-15) Blood Urea Nitrogen 19 mg/dL (7-18) H Creatinine 0.5 MG/DL (0.55-1.30) L Estimat Glomerular Filtration Rate > 60 mL/min (>60) Glucose Level 123 MG/DL (74-106) H Uric Acid 1.8 MG/DL (2.6-7.2) L Calcium Level 9.1 MG/DL (8.5-10.1) Phosphorus Level 2.9 MG/DL (2.5-4.9) Magnesium Level 1.8 MG/DL (1.8-2.4) Total Bilirubin 1.7 MG/DL (0.2-1.0) H Direct Bilirubin 0.4 MG/DL (0.0-0.3) H Aspartate Amino Transf (AST/SGOT) 44 U/L (15-37) H Alanine Aminotransferase (ALT/SGPT) 26 U/L (12-78) Alkaline Phosphatase 84 U/L (46-116) C-Reactive Protein, Quantitative 15.4 mg/dL (0.00-0.90) H Pro-B-Type Natriuretic Peptide 945 pg/mL (0-125) H Total Protein 7.5 G/DL (6.4-8.2) Albumin 2.2 G/DL (3.4-5.0) L Globulin 5.3 g/dL Albumin/Globulin Ratio 0.4 (1.0-2.7) L Arterial Blood pH 7.432 (7.350-7.450) Arterial Blood Partial Pressure CO2 54.2 mmHg (35.0-45.0) H Arterial Blood Partial Pressure O2 62.2 mmHg (75.0-100.0) L Arterial Blood HCO3 35.3 mmol/L (22.0-26.0) H Arterial Blood Oxygen Saturation 90.3 % (95-100) L Arterial Blood Base Excess 9.6 (-2-2) *H Jeremiah Test Positive Plan Problems: (1) Respiratory distress (2) Respiratory failure Assessment & Plan: 50-year-old female Covid positive respiratory insufficiency intubated on ventilatory support declining. Leukocytosis increase oxygen requirement. Vent settings per pulmonology reviewed identified and agree. Unfortunately further surgical invention at this time is not appropriate as patient is not a candidate and her current condition. Prognosis overall guarded. Tracheostomy can be considered in the future if recovering or shows improvement and requires unable to be weaned from ventilator support. Currently okay for nutritional optimization with NG tube. Will need significant monitoring for decubitus formation given patient's size and condition. Okay for air mattress tolerated. Turn every 2 hours as tolerated. Patient is otherwise critically ill and blood pressure labile. Will need to monitor closely.Bilatera l infiltrates are again demonstrated. Stable tube and line positions. will need trach will need to wean vent first (3) Hypoxia (4) Pneumonia due to COVID-19 virus Assessment & Plan: ++ as per pulm and ID (5) Diabetes mellitus out of control Assessment & Plan: DAILY ESTIMATED NEEDS: Needs based on Critical care, obesity 11-14kcal/kg actual body wt (140kg) kcals/kg 5616-2151 total kcals 1.5-2.0g prot/kg IBW (64.5kg) g protein/kg 96-129 g total protein 25-30ml/kg abw (83kg) mL/kg 3377-2743 total fluid mLs NUTRITION DIAGNOSIS: Swallowing difficulty R/T respiratory failure as evidenced by pt orally intubated and sedated, on OGT feeds. CURRENT TF: Vital 1.2 goal of 60ml/hr ENTERAL NUTRITION RECOMMENDATIONS: Vital AF 1.2 @ 60ml/hr x 24 hrs to provide 1440ml, 1728kcal, 108g prot, 1168ml free water * Maintain current critical care and carb controlled TF formula of Vital AF * TF @ goal meeds 100% est kcal/prot needs * HOB over 30 degrees/ water flush per MD TF may be lowered to 55ml/hr for improved BG control while maintaining Kcal and pro needs. ADDITIONAL RECOMMENDATIONS: * Calibrated bedscale wt * Monitor Propofol rate, need for TF adjustment-> now off * Monitor BGs closely : now improved, on novolog q 6rs + NISS * Monitor lytes- K elevated, monitor need for TF change * Rec bowel regimen- now w/ rectal tube . Az Devine Jun 26, 2020 13:57
[2020-06-26] MEDS: Miralax 17gm pkt GT SCH (20:07)
[2020-06-26] MEDS: Dyna-Hex 2% Top Sol 2oz TOPIC SCH (20:07)
--- NOTE | 2020-06-26 21:47 | NUR ---
I spoke with Dr. Nava about patient fighting the vent and agitation as well as grimacing. Asked for order for fentanyl on patient. Provider gave verbal/telephone order for fentanyl gtt.
[2020-06-26] MEDS: fentaNYL 2500mcg/NS 250ml 250 ML IV PRN (22:27)
[2020-06-27] VITALS (59 sets, daily range): BP systolic 94–116; BP diastolic 53–70
--- NOTE | 2020-06-27 | NUR ---
Patient tolerating Fentanyl gtt well. Less fighting of the vent. Able to decrease FiO2 to 90%. VSS will continue to monitor.
[2020-06-27] MEDS: Midazolam HCl 50mg/10ml vial 100 MG in NS 180 ML IV PRN ×3 (00:53→15:37)
--- NOTE | 2020-06-27 02:00 | NUR ---
Patient remains stable, able to wean FiO2 to 80%. Will continue to monitor.
[2020-06-27] MEDS: D5 1/2NS 1,000 ML IV SCH (04:33)
--- NOTE | 2020-06-27 04:45 | NUR ---
Patient bathed, linen change, and repositioned. Patient decompensated quickly with HOB flat. O2 sats dropped to high 70's/low 80's. Patient was able to be weaned to 80% FiO2 overnight, but due to this decompensation had to incease FiO2 back to 100% after bath. Will continue to monitor.
[2020-06-27 05:15] LABS: BASOPHILS % (AUTO) 0.7 % (0.0-2.0); EOSINOPHILS % (AUTO) 7.3 % (0.0-3.0); HEMATOCRIT 28.2 % (37.0-47.0); HEMOGLOBIN 8.7 G/DL (12.0-16.0); LYMPHOCYTES % (AUTO) 22.6 % (20.0-45.0); MEAN CORPUSCULAR VOLUME 92 FL (80-99); MONOCYTES % (AUTO) 3.6 % (1.0-10.0); NEUTROPHILS % (AUTO) 65.7 % (45.0-75.0); PLATELET COUNT 205 K/UL (150-450); RED BLOOD COUNT 3.07 M/UL (4.20-5.40); RED CELL DISTRIBUTION WIDTH 16.8 % (11.6-14.8); WHITE BLOOD COUNT 6.6 K/UL (4.8-10.8)
[2020-06-27 05:51] LABS: ALANINE AMINOTRANSFERASE 27 U/L (12-78); ALBUMIN 2.1 G/DL (3.4-5.0); ALBUMIN/GLOBULIN RATIO 0.4 (1.0-2.7); ALKALINE PHOSPHATASE 78 U/L (46-116); ANION GAP 3 mmol/L (5-15); ASPARTATE AMINO TRANSFERASE 36 U/L (15-37); BILIRUBIN,TOTAL 1.5 MG/DL (0.2-1.0); BLOOD UREA NITROGEN 16 mg/dL (7-18); CALCIUM 9.2 MG/DL (8.5-10.1); CARBON DIOXIDE 36 MMOL/L (21-32); CHLORIDE 101 MMOL/L (98-107); CREATININE 0.4 MG/DL (0.55-1.30); POTASSIUM 3.7 MMOL/L (3.5-5.1); SODIUM 140 MMOL/L (136-145)
[2020-06-27 05:54] LABS: BILIRUBIN,DIRECT 0.5 MG/DL (0.0-0.3)
[2020-06-27 05:56] LABS: PHOSPHORUS 3.1 MG/DL (2.5-4.9)
[2020-06-27] MEDS: NovoLOG Insulin Flexpen SUBQ SCH ×4 (06:00→18:00)
--- NOTE | 2020-06-27 06:00 | NUR ---
Weaned patient FiO2 to 90%. VSS, will continue to monitor.
[2020-06-27] MEDS: Midodrine 10mg tab ORAL SCH ×4 (06:12→21:51)
--- NOTE | 2020-06-27 06:28 | General Progress Note ---
Subjective ROS Limited/Unobtainable: Yes Allergies: Coded Allergies: No Known Allergies (Unverified , 05/28/20) Subjective events noted interval notes reviewed glucose values are stable intubated in ICU Item Value Date Time Bedside Blood Glucose 115 mg/dl 06/27/20 0000 Bedside Blood Glucose 131 mg/dl H 06/26/20 1741 Bedside Blood Glucose 131 mg/dl H 06/26/20 1230 Bedside Blood Glucose 131 mg/dl H 06/26/20 0600 Bedside Blood Glucose 136 mg/dl H 06/26/20 0000 Objective Last 24 Hour Vital Signs Date Time Temp Pulse Resp B/P (MAP) Pulse Ox O2 Delivery O2 Flow Rate FiO2 06/27/20 04:15 80 17 102/58 (73) 100 06/27/20 04:00 Mechanical Ventilator Mechanical Ventilator 06/27/20 04:00 98.6 81 17 101/54 (70) 100 06/27/20 03:45 82 17 97/57 (70) 100 06/27/20 03:30 82 18 101/56 (71) 100 06/27/20 03:30 78 20 80 06/27/20 03:15 84 20 100/59 (73) 99 06/27/20 03:00 84 19 98/54 (69) 100 06/27/20 02:45 93 24 111/65 (80) 97 06/27/20 02:30 83 19 94/55 (68) 100 06/27/20 02:15 84 18 96/58 (71) 100 06/27/20 02:00 90 06/27/20 02:00 96.9 86 20 101/58 (72) 99 06/27/20 01:45 88 20 97/55 (69) 100 06/27/20 01:30 87 17 95/58 (70) 100 06/27/20 01:20 87 20 90 06/27/20 01:15 89 20 101/54 (70) 97 06/27/20 01:00 90 21 104/59 (74) 96 06/27/20 00:53 Mechanical Ventilator 100 06/27/20 00:45 91 23 103/61 (75) 96 06/27/20 00:30 92 21 109/70 (83) 98 06/27/20 00:15 93 14 105/67 (80) 99 06/27/20 00:00 Mechanical Ventilator Mechanical Ventilator 06/27/20 00:00 100 06/27/20 00:00 96.9 95 27 104/67 (79) 100 06/26/20 23:45 97 30 99 06/26/20 23:38 97 06/26/20 23:30 98 30 113/73 (86) 99 06/26/20 23:15 97 29 111/60 (77) 99 06/26/20 23:00 99 29 105/63 (77) 100 06/26/20 22:45 100 30 107/64 (78) 06/26/20 22:30 97 26 113/71 (85) 06/26/20 22:27 27 108/63 Mechanical Ventilator 100 06/26/20 22:15 96 30 108/63 (78) 99 06/26/20 22:00 95 27 102/66 (78) 06/26/20 22:00 100 06/26/20 21:45 97 29 105/68 (80) 06/26/20 21:30 98 29 110/70 (83) 06/26/20 21:15 99 30 113/72 (86) 06/26/20 21:00 101 32 110/61 (77) 06/26/20 21:00 100 06/26/20 20:45 99 30 115/65 (82) 06/26/20 20:30 100 31 113/65 (81) 06/26/20 20:15 100 34 117/69 (85) 93 06/26/20 20:00 100 06/26/20 20:00 Mechanical Ventilator Mechanical Ventilator 06/26/20 20:00 97.4 98 30 123/71 (88) 95 06/26/20 19:45 99 32 116/72 (87) 95 06/26/20 19:30 98 33 123/72 (89) 94 06/26/20 19:29 95 06/26/20 19:18 94 30 100 06/26/20 19:00 99 31 121/75 (90) 95 06/26/20 19:00 31 Mechanical Ventilator 100 06/26/20 18:00 93 29 110/72 (85) 96 06/26/20 18:00 29 Mechanical Ventilator 100 06/26/20 17:17 100 06/26/20 17:17 100 06/26/20 17:15 92 29 122/73 (89) 92 06/26/20 17:00 100 06/26/20 17:00 30 Mechanical Ventilator 100 06/26/20 17:00 93 30 114/71 (85) 87 06/26/20 16:00 Mechanical Ventilator Mechanical Ventilator 06/26/20 16:00 97.9 91 29 128/74 (92) 90 06/26/20 16:00 31 Mechanical Ventilator 95 06/26/20 16:00 95 06/26/20 15:48 93 06/26/20 15:36 90 29 95 06/26/20 15:15 94 30 122/76 (91) 95 06/26/20 15:00 92 28 120/71 (87) 97 06/26/20 15:00 29 Mechanical Ventilator 95 06/26/20 14:45 90 28 125/77 (93) 94 06/26/20 14:30 90 30 117/76 (90) 94 06/26/20 14:15 90 30 114/81 (92) 94 06/26/20 14:00 29 Mechanical Ventilator 95 06/26/20 14:00 90 29 114/74 (87) 95 06/26/20 13:45 92 25 122/75 (91) 97 06/26/20 13:45 25 Mechanical Ventilator 90 06/26/20 13:30 27 Mechanical Ventilator 95 06/26/20 13:30 93 27 115/75 (88) 95 06/26/20 13:15 92 28 114/76 (89) 96 06/26/20 13:05 28 Mechanical Ventilator 95 06/26/20 13:00 92 29 118/74 (89) 94 06/26/20 12:45 91 28 115/73 (87) 96 06/26/20 12:35 95 06/26/20 12:30 97 29 116/71 (86) 86 06/26/20 12:26 91 27 118/78 (91) 91 06/26/20 12:15 87 26 93 06/26/20 12:04 85 06/26/20 12:00 Mechanical Ventilator Mechanical Ventilator 06/26/20 12:00 80 06/26/20 12:00 98.1 85 24 106/71 (83) 93 06/26/20 11:23 88 22 90 06/26/20 11:00 21 Mechanical Ventilator 80 06/26/20 11:00 86 21 103/68 (80) 97 2/3/21 10:00 22 Mechanical Ventilator 80 06/26/20 10:00 93 22 103/69 (80) 96 06/26/20 09:45 92 24 108/70 (83) 96 06/26/20 09:30 94 24 103/70 (81) 96 06/26/20 09:15 92 25 105/60 (75) 95 06/26/20 09:00 94 25 100/66 (77) 95 06/26/20 09:00 25 Mechanical Ventilator 80 06/26/20 08:45 22 Mechanical Ventilator 80 06/26/20 08:45 95 22 96 06/26/20 08:45 95 22 105/67 (80) 96 06/26/20 08:30 94 22 106/63 (77) 95 06/26/20 08:30 22 Mechanical Ventilator 80 06/26/20 08:15 97 27 102/69 (80) 93 06/26/20 08:15 97 27 93 06/26/20 08:00 80 06/26/20 08:00 98.5 96 26 110/70 (83) 94 06/26/20 08:00 26 Mechanical Ventilator 80 06/26/20 08:00 Mechanical Ventilator Mechanical Ventilator 06/26/20 07:28 101 06/26/20 07:28 102 29 80 06/26/20 07:00 99 28 113/72 (86) 94 06/26/20 07:00 30 Mechanical Ventilator 80 06/26/20 06:30 104 30 Intake and Output 06/26/20 06/27/20 19:00 07:00 Intake Total 741.843 ml 100 ml Output Total 265 ml 1925 ml Balance 476.843 ml -1825 ml Free Water 100 ml IV Total 741.843 ml Output Urine Total 255 ml 1925 ml Stool Total 10 ml 0 ml # Bowel Movements 3 4 Laboratory Tests 06/26/20 08:43: Arterial Blood pH 7.432, Arterial Blood Partial Pressure CO2 54.2H, Arterial Blood Partial Pressure O2 62.2L, Arterial Blood HCO3 35.3H, Arterial Blood Oxygen Saturation 90.3L, Arterial Blood Base Excess 9.6*H, Jeremiah Test Positive 06/27/20 04:15: White Blood Count 6.6, Red Blood Count 3.07L, Hemoglobin 8.7L, Hematocrit 28.2L, Mean Corpuscular Volume 92, Mean Corpuscular Hemoglobin 28.2, Mean Corpuscular Hemoglobin Concent 30.7L, Red Cell Distribution Width 16.8H, Platelet Count 205, Mean Platelet Volume 7.9, Neutrophils (%) (Auto) 65.7, Lymphocytes (%) (Auto) 22.6, Monocytes (%) (Auto) 3.6, Eosinophils (%) (Auto) 7.3H, Basophils (%) (Auto) 0.7, Sodium Level 140, Potassium Level 3.7, Chloride Level 101, Carbon Dioxide Level 36H, Anion Gap 3L, Blood Urea Nitrogen 16, Creatinine 0.4L, Estimat Glomerular Filtration Rate > 60, Glucose Level 106, Uric Acid 1.9L, Calcium Level 9.2, Phosphorus Level 3.1, Magnesium Level 1.7L, Total Bilirubin 1.5H, Direct Bilirubin 0.5H, Aspartate Amino Transf (AST/SGOT) 36, Alanine Aminotransferase (ALT/SGPT) 27, Alkaline Phosphatase 78, C-Reactive Protein, Quantitative 17.5H, Pro-B-Type Natriuretic Peptide 521H, Total Protein 7.1, Albumin 2.1L, Globulin 5.0, Albumin/Globulin Ratio 0.4L Height (Feet): 5 Height (Inches): 5.00 Weight (Pounds): 308 Objective Current Medications Medications (Trade) Dose Ordered Sig/Zelda Route PRN Reason Start Time Stop Time Status Last Admin Dose Admin Acetaminophen (Tylenol) 650 mg Q4H PRN NG Temp >100.5 05/31/20 21:45 06/30/20 21:44 06/21/20 12:19 Acetaminophen (Tylenol) 650 mg Q6H PRN NG Mild Pain (Pain Scale 1-3) 06/06/20 18:00 07/06/20 17:59 06/13/20 23:10 Chlorhexidine Gluconate (Inna-Hex 2%) 1 applic DAILY@1999 TOPIC 05/30/20 20:00 08/28/20 19:59 06/26/20 20:07 Dextrose (Dextrose 50%) 25 ml Q30M PRN IV Hypoglycemia 06/05/20 10:45 09/03/20 10:44 Dextrose (Dextrose 50%) 50 ml Q30M PRN IV Hypoglycemia 06/05/20 10:45 09/03/20 10:44 Dextrose/Sodium Chloride 1,000 ml @ 50 mls/hr Q20H IV 06/24/20 16:30 07/24/20 16:29 06/27/20 04:33 Docusate Sodium (Colace) 100 mg Q12HR GT 06/07/20 21:00 07/07/20 20:59 06/25/20 20:44 Enoxaparin Sodium (Lovenox) 40 mg DAILY SUBQ 05/30/20 10:00 08/28/20 09:59 06/26/20 09:13 Fentanyl Citrate 250 ml @ 0 mls/hr Q24H PRN IV . 06/26/20 22:00 06/28/20 21:59 06/26/20 22:27 Furosemide (Lasix) 40 mg DAILY IV 06/22/20 09:00 07/22/20 08:59 06/26/20 09:11 Insulin Aspart (NovoLOG) EVERY 6 HOURS SUBQ 06/07/20 00:00 09/03/20 11:59 06/24/20 18:00 Midazolam HCl 100 mg/Sodium Chloride 200 ml @ 0 mls/hr Q24H PRN IV SEDATION 06/25/20 13:30 06/27/20 13:29 06/27/20 00:53 Midodrine (Pro-Amatine) 10 mg Q8HR ORAL 06/14/20 14:00 09/12/20 13:59 06/27/20 06:12 Pantoprazole (Protonix) 40 mg Q12HR IVP 06/13/20 21:00 07/03/20 08:59 06/26/20 20:07 Polyethylene Glycol (Miralax) 17 gm BEDTIME GT 06/07/20 21:00 07/07/20 20:59 06/25/20 20:44 Assessment/Plan Problem List: (1) Diabetes mellitus out of control ICD Codes: E11.65 - Type 2 diabetes mellitus with hyperglycemia SNOMED: 07338165, 373266144 (2) Pneumonia due to COVID-19 virus ICD Codes: U07.1 - COVID-19; J12.82 - Pneumonia due to coronavirus disease 2019 SNOMED: 740566346857415215 (3) Respiratory distress ICD Codes: R06.03 - Acute respiratory distress; J12.82 - Pneumonia due to coronavirus disease 2019 SNOMED: 827511059 Status: unchanged Assessment/Plan: no need for basal insulin continue Novolog sliding scale every 6 hours Huber Adame MD Jun 27, 2020 06:28
--- NOTE | 2020-06-27 06:46 | Hematology/Onc Progress Note ---
Assessment/Plan Assessment/Plan # Thrombocytopenia is due to infection/underlying covid19+++ --> ABX ceftriaxone -->zosyn-->off --> on steriods likely cause of initial wbc --> per pulm --> plt 107->156-->192-->205 --> smear reviewed # Anemia due to chronic disease --> hgb goal is >7 --> transfuse prn --> ferritin is >1000 --> hold off on iron --> 10-->9.8->9-->8-->8.2-->9.4-->8.1-->9.9-->8.7 # Elevated ddimer due to covid19++ --> duplex legs is negative --> underlying covid rx # Hypoxia -> due to covid19 # Hypoxemia --> rx same as above # Respiratory failure --> on vent --> per pulm # Pneumonia due to COVID-19 virus --> per pulm rx -> sp remdesivir # Diabetes mellitus out of control --> hgb a1c goal <7 # Poor prognosis # Dvt ppx lovenox sq Appreciate consultation and dw RN Subjective Constitutional: Denies: no symptoms, chills, fever, malaise, weakness, other HEENT: Denies: no symptoms, eye pain, blurred vision, tearing, double vision, ear pain, ear discharge, nose pain, nose congestion, throat pain, throat swelling, mouth pain, mouth swelling, other Cardiovascular: Denies: no symptoms, chest pain, edema, irregular heart rate, lightheadedness, palpitations, syncope, other Respiratory: Denies: no symptoms, cough, shortness of breath, SOB with excertion, SOB at rest, sputum, wheezing, other Genitourinary: Denies: no symptoms, burning, discharge, frequency, flank pain, hematuria, incontinence, pain, urgency, other Endocrine: Denies: no symptoms, excessive sweating, flushing, intolerance to cold, intolerance to heat, increased hunger, increased thirst, increased urine, unexplained weight gain, unexplained weight loss, other Hematologic/Lymphatic: Denies: no symptoms, anemia, easy bleeding, easy bruising, adenopathy, other Allergies: Coded Allergies: No Known Allergies (Unverified , 05/28/20) Subjective 06/10 nv, on vent, with ogt, on fentanyl and versed, plt stable 06/11 nv, vent adjusted is on ogt, meds reviewed 06/12 nv, vent, meds noted, labs noted, no bleeding, hgb 10.4 06/13 nv, is on vent, meds reviewed, no bleeding, cbc reviewed 06/14 nv, on vent, tachy, labs reviewed, gross hematuria, febrile overnight, abx 06/17 nv, on vent, labs noted, no major changes, feeling better overnight 06/18 nv, meds reviewed, labs noted, no major events, hgb 8.6 06/19 nv, remains intubated, with fluids, labs reviewed, meds noted 06/20 nv, intubated remains on restraints, meds noted as well, as labs 06/21 nv, remains on vent, on restraints, meds reviewed, labs noted 06/22: covering Dr. Del Cid no acute events 06/23 sedated, on vent, nv, intubated, meds reviewed, versed 06/24 nv, on vent, no night sweats, no bleeding, remains in icu 2/2 nv, on vent, icu, meds noted, no bleeding, comfortable 2/3 nv, on versed, icu, weaning parameters, labs noted 06/27 nv, overnight fighting vent, as per pulm fentanyl on board Objective Objective Current Medications Medications (Trade) Dose Ordered Sig/Zelda Route PRN Reason Start Time Stop Time Status Last Admin Dose Admin Acetaminophen (Tylenol) 650 mg Q4H PRN NG Temp >100.5 05/31/20 21:45 06/30/20 21:44 06/21/20 12:19 Acetaminophen (Tylenol) 650 mg Q6H PRN NG Mild Pain (Pain Scale 1-3) 06/06/20 18:00 07/06/20 17:59 06/13/20 23:10 Chlorhexidine Gluconate (Inna-Hex 2%) 1 applic DAILY@1999 TOPIC 05/30/20 20:00 08/28/20 19:59 06/26/20 20:07 Dextrose (Dextrose 50%) 25 ml Q30M PRN IV Hypoglycemia 06/05/20 10:45 09/03/20 10:44 Dextrose (Dextrose 50%) 50 ml Q30M PRN IV Hypoglycemia 06/05/20 10:45 09/03/20 10:44 Dextrose/Sodium Chloride 1,000 ml @ 50 mls/hr Q20H IV 06/24/20 16:30 07/24/20 16:29 06/27/20 04:33 Docusate Sodium (Colace) 100 mg Q12HR GT 06/07/20 21:00 07/07/20 20:59 06/25/20 20:44 Enoxaparin Sodium (Lovenox) 40 mg DAILY SUBQ 05/30/20 10:00 08/28/20 09:59 06/26/20 09:13 Fentanyl Citrate 250 ml @ 0 mls/hr Q24H PRN IV . 06/26/20 22:00 06/28/20 21:59 06/26/20 22:27 Furosemide (Lasix) 40 mg DAILY IV 06/22/20 09:00 07/22/20 08:59 06/26/20 09:11 Insulin Aspart (NovoLOG) EVERY 6 HOURS SUBQ 06/07/20 00:00 09/03/20 11:59 06/24/20 18:00 Midazolam HCl 100 mg/Sodium Chloride 200 ml @ 0 mls/hr Q24H PRN IV SEDATION 06/25/20 13:30 06/27/20 13:29 06/27/20 00:53 Midodrine (Pro-Amatine) 10 mg Q8HR ORAL 06/14/20 14:00 09/12/20 13:59 06/27/20 06:12 Pantoprazole (Protonix) 40 mg Q12HR IVP 06/13/20 21:00 07/03/20 08:59 06/26/20 20:07 Polyethylene Glycol (Miralax) 17 gm BEDTIME GT 06/07/20 21:00 07/07/20 20:59 06/25/20 20:44 Last 24 Hour Vital Signs Date Time Temp Pulse Resp B/P (MAP) Pulse Ox O2 Delivery O2 Flow Rate FiO2 06/27/20 04:15 80 17 102/58 (73) 100 06/27/20 04:00 Mechanical Ventilator Mechanical Ventilator 06/27/20 04:00 98.6 81 17 101/54 (70) 100 06/27/20 03:45 82 17 97/57 (70) 100 06/27/20 03:30 82 18 101/56 (71) 100 06/27/20 03:30 78 20 80 06/27/20 03:15 84 20 100/59 (73) 99 06/27/20 03:00 84 19 98/54 (69) 100 06/27/20 02:45 93 24 111/65 (80) 97 06/27/20 02:30 83 19 94/55 (68) 100 06/27/20 02:15 84 18 96/58 (71) 100 06/27/20 02:00 90 06/27/20 02:00 96.9 86 20 101/58 (72) 99 06/27/20 01:45 88 20 97/55 (69) 100 06/27/20 01:30 87 17 95/58 (70) 100 06/27/20 01:20 87 20 90 06/27/20 01:15 89 20 101/54 (70) 97 06/27/20 01:00 90 21 104/59 (74) 96 06/27/20 00:53 Mechanical Ventilator 100 06/27/20 00:45 91 23 103/61 (75) 96 06/27/20 00:30 92 21 109/70 (83) 98 06/27/20 00:15 93 14 105/67 (80) 99 06/27/20 00:00 Mechanical Ventilator Mechanical Ventilator 06/27/20 00:00 100 06/27/20 00:00 96.9 95 27 104/67 (79) 100 06/26/20 23:45 97 30 99 06/26/20 23:38 97 06/26/20 23:30 98 30 113/73 (86) 99 06/26/20 23:15 97 29 111/60 (77) 99 06/26/20 23:00 99 29 105/63 (77) 100 06/26/20 22:45 100 30 107/64 (78) 06/26/20 22:30 97 26 113/71 (85) 06/26/20 22:27 27 108/63 Mechanical Ventilator 100 06/26/20 22:15 96 30 108/63 (78) 99 06/26/20 22:00 95 27 102/66 (78) 06/26/20 22:00 100 06/26/20 21:45 97 29 105/68 (80) 06/26/20 21:30 98 29 110/70 (83) 06/26/20 21:15 99 30 113/72 (86) 06/26/20 21:00 101 32 110/61 (77) 06/26/20 21:00 100 06/26/20 20:45 99 30 115/65 (82) 06/26/20 20:30 100 31 113/65 (81) 06/26/20 20:15 100 34 117/69 (85) 93 06/26/20 20:00 100 06/26/20 20:00 Mechanical Ventilator Mechanical Ventilator 06/26/20 20:00 97.4 98 30 123/71 (88) 95 06/26/20 19:45 99 32 116/72 (87) 95 06/26/20 19:30 98 33 123/72 (89) 94 06/26/20 19:29 95 06/26/20 19:18 94 30 100 06/26/20 19:00 99 31 121/75 (90) 95 06/26/20 19:00 31 Mechanical Ventilator 100 06/26/20 18:00 93 29 110/72 (85) 96 06/26/20 18:00 29 Mechanical Ventilator 100 06/26/20 17:17 100 06/26/20 17:17 100 06/26/20 17:15 92 29 122/73 (89) 92 06/26/20 17:00 100 06/26/20 17:00 30 Mechanical Ventilator 100 06/26/20 17:00 93 30 114/71 (85) 87 06/26/20 16:00 Mechanical Ventilator Mechanical Ventilator 06/26/20 16:00 97.9 91 29 128/74 (92) 90 06/26/20 16:00 31 Mechanical Ventilator 95 06/26/20 16:00 95 06/26/20 15:48 93 06/26/20 15:36 90 29 95 06/26/20 15:15 94 30 122/76 (91) 95 06/26/20 15:00 92 28 120/71 (87) 97 06/26/20 15:00 29 Mechanical Ventilator 95 06/26/20 14:45 90 28 125/77 (93) 94 06/26/20 14:30 90 30 117/76 (90) 94 06/26/20 14:15 90 30 114/81 (92) 94 06/26/20 14:00 29 Mechanical Ventilator 95 06/26/20 14:00 90 29 114/74 (87) 95 06/26/20 13:45 92 25 122/75 (91) 97 06/26/20 13:45 25 Mechanical Ventilator 90 06/26/20 13:30 27 Mechanical Ventilator 95 06/26/20 13:30 93 27 115/75 (88) 95 06/26/20 13:15 92 28 114/76 (89) 96 06/26/20 13:05 28 Mechanical Ventilator 95 06/26/20 13:00 92 29 118/74 (89) 94 06/26/20 12:45 91 28 115/73 (87) 96 06/26/20 12:35 95 06/26/20 12:30 97 29 116/71 (86) 86 06/26/20 12:26 91 27 118/78 (91) 91 06/26/20 12:15 87 26 93 06/26/20 12:04 85 06/26/20 12:00 Mechanical Ventilator Mechanical Ventilator 06/26/20 12:00 80 06/26/20 12:00 98.1 85 24 106/71 (83) 93 06/26/20 11:23 88 22 90 06/26/20 11:00 21 Mechanical Ventilator 80 06/26/20 11:00 86 21 103/68 (80) 97 06/26/20 10:00 22 Mechanical Ventilator 80 06/26/20 10:00 93 22 103/69 (80) 96 06/26/20 09:45 92 24 108/70 (83) 96 06/26/20 09:30 94 24 103/70 (81) 96 06/26/20 09:15 92 25 105/60 (75) 95 06/26/20 09:00 94 25 100/66 (77) 95 06/26/20 09:00 25 Mechanical Ventilator 80 06/26/20 08:45 22 Mechanical Ventilator 80 06/26/20 08:45 95 22 96 06/26/20 08:45 95 22 105/67 (80) 96 06/26/20 08:30 94 22 106/63 (77) 95 06/26/20 08:30 22 Mechanical Ventilator 80 06/26/20 08:15 97 27 102/69 (80) 93 06/26/20 08:15 97 27 93 2//21 08:00 80 06/26/20 08:00 98.5 96 26 110/70 (83) 94 06/26/20 08:00 26 Mechanical Ventilator 80 06/26/20 08:00 Mechanical Ventilator Mechanical Ventilator 06/26/20 07:28 101 06/26/20 07:28 102 29 80 06/26/20 07:00 99 28 113/72 (86) 94 06/26/20 07:00 30 Mechanical Ventilator 80 06/26/20 06:30 104 30 06/26/20 06:00 104 22 105/72 (83) 97 06/26/20 06:00 30 Mechanical Ventilator 80 06/26/20 05:00 28 Mechanical Ventilator 80 06/26/20 05:00 111 32 118/99 (105) 95 06/26/20 04:00 Mechanical Ventilator Mechanical Ventilator 06/26/20 04:00 98.8 106 29 109/67 (81) 96 06/26/20 04:00 80 06/26/20 04:00 37 Mechanical Ventilator 80 06/26/20 03:51 106 06/26/20 03:18 80 06/26/20 03:17 105 27 60 06/26/20 03:00 26 Mechanical Ventilator 80 06/26/20 03:00 110 36 112/78 (89) 91 06/26/20 02:45 30 Mechanical Ventilator 80 06/26/20 02:30 20 Mechanical Ventilator 80 06/26/20 02:09 32 Mechanical Ventilator 80 06/26/20 02:00 109 29 104/71 (82) 98 06/26/20 02:00 36 Mechanical Ventilator 80 06/26/20 01:00 101 28 101/68 (79) 99 06/26/20 01:00 34 Mechanical Ventilator 80 06/26/20 00:00 98.5 109 25 113/71 (85) 97 06/26/20 00:00 20 Mechanical Ventilator 80 06/26/20 00:00 Mechanical Ventilator Mechanical Ventilator 06/25/20 23:45 20 Mechanical Ventilator 80 06/25/20 23:30 21 Mechanical Ventilator 60 06/25/20 23:22 116 27 60 06/25/20 23:00 117 06/25/20 23:00 118 28 114/78 (90) 96 06/25/20 22:30 25 Mechanical Ventilator 60 06/25/20 22:15 20 Mechanical Ventilator 60 06/25/20 22:00 122 22 115/92 (100) 90 06/25/20 22:00 15 Mechanical Ventilator 60 06/25/20 21:45 36 Mechanical Ventilator 60 06/25/20 21:30 35 Mechanical Ventilator 60 06/25/20 21:15 38 Mechanical Ventilator 60 06/25/20 21:00 113 46 128/97 (107) 85 06/25/20 21:00 40 Mechanical Ventilator 60 06/25/20 20:43 33 Mechanical Ventilator 60 06/25/20 20:00 60 06/25/20 20:00 35 Mechanical Ventilator 60 06/25/20 20:00 Mechanical Ventilator Mechanical Ventilator 06/25/20 20:00 97.7 107 30 117/77 (90) 95 06/25/20 19:35 110 06/25/20 19:21 106 27 60 06/25/20 19:00 34 Mechanical Ventilator 60 06/25/20 19:00 109 28 117/80 (92) 91 06/25/20 18:00 108 30 113/77 (89) 93 06/25/20 17:20 60 06/25/20 17:10 103 32 107/73 (84) 96 06/25/20 17:00 104 32 70 06/25/20 16:00 103 06/25/20 16:00 Mechanical Ventilator 06/25/20 16:00 98.8 103 32 113/77 (89) 96 06/25/20 16:00 Mechanical Ventilator Mechanical Ventilator 06/25/20 15:43 70 06/25/20 15:00 Mechanical Ventilator 06/25/20 15:00 101 28 122/84 (97) 100 06/25/20 15:00 101 30 80 06/25/20 14:01 27 Mechanical Ventilator 80 06/25/20 14:00 27 Mechanical Ventilator 80 06/25/20 14:00 106 32 107/32 (57) 98 06/25/20 13:00 110 32 116/77 (90) 98 06/25/20 13:00 32 Mechanical Ventilator 80 06/25/20 12:20 80 06/25/20 12:20 80 06/25/20 12:00 Mechanical Ventilator Mechanical Ventilator 06/25/20 12:00 41 Mechanical Ventilator 90 06/25/20 12:00 99.0 119 41 102/59 (73) 100 06/25/20 12:00 105 06/25/20 12:00 90 06/25/20 11:40 119 34 90 06/25/20 11:00 107 31 95/55 (68) 98 06/25/20 11:00 31 Mechanical Ventilator 90 06/25/20 10:30 109 33 104/63 (77) 99 06/25/20 10:00 33 Mechanical Ventilator 90 06/25/20 10:00 106 33 102/63 (76) 98 06/25/20 09:30 106 27 107/67 (80) 97 06/25/20 09:00 102 31 108/68 (81) 99 06/25/20 09:00 31 Mechanical Ventilator 90 06/25/20 08:45 90 06/25/20 08:18 90 06/25/20 08:12 96 06/25/20 08:00 98.1 98 30 104/78 (87) 96 06/25/20 08:00 Mechanical Ventilator Mechanical Ventilator 06/25/20 08:00 30 Mechanical Ventilator 100 06/25/20 08:00 100 06/25/20 07:38 29 Mechanical Ventilator 100 06/25/20 07:10 95 29 100 06/25/20 07:00 97 29 112/72 (85) 97 06/25/20 06:57 33 Mechanical Ventilator 100 Intake and Output 06/26/20 06/27/20 19:00 07:00 Intake Total 741.843 ml 100 ml Output Total 265 ml 1925 ml Balance 476.843 ml -1825 ml Free Water 100 ml IV Total 741.843 ml Output Urine Total 255 ml 1925 ml Stool Total 10 ml 0 ml # Bowel Movements 3 4 Labs Test 06/24/20 07:20 06/24/20 13:40 06/24/20 18:12 06/24/20 23:22 Arterial Blood pH 7.425 (7.350-7.450) Arterial Blood Partial Pressure CO2 56.7 mmHg (35.0-45.0) Arterial Blood Partial Pressure O2 70.9 mmHg (75.0-100.0) Arterial Blood HCO3 36.4 mmol/L (22.0-26.0) Arterial Blood Oxygen Saturation 92.7 % (95-100) Arterial Blood Base Excess 10.5 (-2-2) Jeremiah Test Positive POC Whole Blood Glucose 127 MG/DL (74-106) 105 MG/DL (74-106) 117 MG/DL (74-106) Test 06/25/20 04:15 06/25/20 06:01 06/25/20 09:46 06/26/20 04:15 White Blood Count 7.4 K/UL (4.8-10.8) 9.0 K/UL (4.8-10.8) Red Blood Count 3.06 M/UL (4.20-5.40) 3.28 M/UL (4.20-5.40) Hemoglobin 8.7 G/DL (12.0-16.0) 9.5 G/DL (12.0-16.0) Hematocrit 28.1 % (37.0-47.0) 30.2 % (37.0-47.0) Mean Corpuscular Volume 92 FL (80-99) 92 FL (80-99) Mean Corpuscular Hemoglobin 28.4 PG (27.0-31.0) 28.9 PG (27.0-31.0) Mean Corpuscular Hemoglobin Concent 30.9 G/DL (32.0-36.0) 31.4 G/DL (32.0-36.0) Red Cell Distribution Width 16.8 % (11.6-14.8) 16.5 % (11.6-14.8) Platelet Count 210 K/UL (150-450) 223 K/UL (150-450) Mean Platelet Volume 7.3 FL (6.5-10.1) 7.2 FL (6.5-10.1) Neutrophils (%) (Auto) 74.0 % (45.0-75.0) 75.5 % (45.0-75.0) Lymphocytes (%) (Auto) 13.0 % (20.0-45.0) 15.1 % (20.0-45.0) Monocytes (%) (Auto) 5.1 % (1.0-10.0) 3.9 % (1.0-10.0) Eosinophils (%) (Auto) 6.4 % (0.0-3.0) 4.8 % (0.0-3.0) Basophils (%) (Auto) 1.4 % (0.0-2.0) 0.7 % (0.0-2.0) Sodium Level 144 MMOL/L (136-145) 139 MMOL/L (136-145) Potassium Level 3.6 MMOL/L (3.5-5.1) 4.4 MMOL/L (3.5-5.1) Chloride Level 105 MMOL/L (98-107) 99 MMOL/L (98-107) Carbon Dioxide Level 33 MMOL/L (21-32) 33 MMOL/L (21-32) Anion Gap 7 mmol/L (5-15) 7 mmol/L (5-15) Blood Urea Nitrogen 23 mg/dL (7-18) 19 mg/dL (7-18) Creatinine 0.5 MG/DL (0.55-1.30) 0.5 MG/DL (0.55-1.30) Estimat Glomerular Filtration Rate > 60 mL/min (>60) > 60 mL/min (>60) Glucose Level 107 MG/DL (74-106) 123 MG/DL (74-106) Calcium Level 9.1 MG/DL (8.5-10.1) 9.1 MG/DL (8.5-10.1) POC Whole Blood Glucose 123 MG/DL (74-106) Arterial Blood pH 7.432 (7.350-7.450) Arterial Blood Partial Pressure CO2 48.9 mmHg (35.0-45.0) Arterial Blood Partial Pressure O2 69.2 mmHg (75.0-100.0) Arterial Blood HCO3 31.9 mmol/L (22.0-26.0) Arterial Blood Oxygen Saturation 92.2 % (95-100) Arterial Blood Base Excess 6.7 (-2-2) Jeremiah Test Positive Uric Acid 1.8 MG/DL (2.6-7.2) Phosphorus Level 2.9 MG/DL (2.5-4.9) Magnesium Level 1.8 MG/DL (1.8-2.4) Total Bilirubin 1.7 MG/DL (0.2-1.0) Direct Bilirubin 0.4 MG/DL (0.0-0.3) Aspartate Amino Transf (AST/SGOT) 44 U/L (15-37) Alanine Aminotransferase (ALT/SGPT) 26 U/L (12-78) Alkaline Phosphatase 84 U/L (46-116) C-Reactive Protein, Quantitative 15.4 mg/dL (0.00-0.90) Pro-B-Type Natriuretic Peptide 945 pg/mL (0-125) Total Protein 7.5 G/DL (6.4-8.2) Albumin 2.2 G/DL (3.4-5.0) Globulin 5.3 g/dL Albumin/Globulin Ratio 0.4 (1.0-2.7) Test 06/26/20 08:43 06/27/20 04:15 Arterial Blood pH 7.432 (7.350-7.450) Arterial Blood Partial Pressure CO2 54.2 mmHg (35.0-45.0) Arterial Blood Partial Pressure O2 62.2 mmHg (75.0-100.0) Arterial Blood HCO3 35.3 mmol/L (22.0-26.0) Arterial Blood Oxygen Saturation 90.3 % (95-100) Arterial Blood Base Excess 9.6 (-2-2) Jeremiah Test Positive White Blood Count 6.6 K/UL (4.8-10.8) Red Blood Count 3.07 M/UL (4.20-5.40) Hemoglobin 8.7 G/DL (12.0-16.0) Hematocrit 28.2 % (37.0-47.0) Mean Corpuscular Volume 92 FL (80-99) Mean Corpuscular Hemoglobin 28.2 PG (27.0-31.0) Mean Corpuscular Hemoglobin Concent 30.7 G/DL (32.0-36.0) Red Cell Distribution Width 16.8 % (11.6-14.8) Platelet Count 205 K/UL (150-450) Mean Platelet Volume 7.9 FL (6.5-10.1) Neutrophils (%) (Auto) 65.7 % (45.0-75.0) Lymphocytes (%) (Auto) 22.6 % (20.0-45.0) Monocytes (%) (Auto) 3.6 % (1.0-10.0) Eosinophils (%) (Auto) 7.3 % (0.0-3.0) Basophils (%) (Auto) 0.7 % (0.0-2.0) Sodium Level 140 MMOL/L (136-145) Potassium Level 3.7 MMOL/L (3.5-5.1) Chloride Level 101 MMOL/L (98-107) Carbon Dioxide Level 36 MMOL/L (21-32) Anion Gap 3 mmol/L (5-15) Blood Urea Nitrogen 16 mg/dL (7-18) Creatinine 0.4 MG/DL (0.55-1.30) Estimat Glomerular Filtration Rate > 60 mL/min (>60) Glucose Level 106 MG/DL (74-106) Uric Acid 1.9 MG/DL (2.6-7.2) Calcium Level 9.2 MG/DL (8.5-10.1) Phosphorus Level 3.1 MG/DL (2.5-4.9) Magnesium Level 1.7 MG/DL (1.8-2.4) Total Bilirubin 1.5 MG/DL (0.2-1.0) Direct Bilirubin 0.5 MG/DL (0.0-0.3) Aspartate Amino Transf (AST/SGOT) 36 U/L (15-37) Alanine Aminotransferase (ALT/SGPT) 27 U/L (12-78) Alkaline Phosphatase 78 U/L (46-116) C-Reactive Protein, Quantitative 17.5 mg/dL (0.00-0.90) Pro-B-Type Natriuretic Peptide 521 pg/mL (0-125) Total Protein 7.1 G/DL (6.4-8.2) Albumin 2.1 G/DL (3.4-5.0) Globulin 5.0 g/dL Albumin/Globulin Ratio 0.4 (1.0-2.7) Height (Feet): 5 Height (Inches): 5.00 Weight (Pounds): 308 Objective GeNL: nv Pulm: vent++ CV: rrr Abd: soft, nt, nd Ext: no cce Myron Condon MD Jun 27, 2020 06:45
--- NOTE | 2020-06-27 07:13 | NUR ---
Report given to RAKEL Lopez. Handed over care of patient.
--- NOTE | 2020-06-27 07:20 | NUR ---
NURSE NOTES: Report received from Elidia Gutierrez RN.Pt sedated ,orally intubated ETT7.0,lip line 23,AC 15,TV 600,PS 10, Fio2 90%,Peep10,noted no resp distress,no signs of pain or discomfort,SR on the monitor,O2 sat 100%,NPO,[place] cath draining yellow urine,Rectal tube with liquid brown stools,skin warm and dry and edematous, IV site LINDA PICC line intact with Fentanyl drip at 200 mcg/hr,and Versed 20 mg/hr,IVF 1/2 NS at 50 ml/hr,SR up x2 HOB elevated bed lock in lowest position,will continue with plans of care.
--- NOTE | 2020-06-27 08:36 | Surgery Progress Note ---
Surgery Progress Note Subjective Additional Comments worse peep 10 fi02 90% ill appearing on support Objective Last 24 Hour Vital Signs Date Time Temp Pulse Resp B/P (MAP) Pulse Ox O2 Delivery O2 Flow Rate FiO2 06/27/20 08:00 17 112/68 Mechanical Ventilator 90 06/27/20 08:00 17 Mechanical Ventilator 90 06/27/20 06:45 91 17 99/57 (71) 100 06/27/20 06:30 92 20 98/62 (74) 100 06/27/20 06:30 86 20 06/27/20 06:15 92 21 99/59 (72) 96 06/27/20 06:00 98 22 107/62 (77) 98 06/27/20 06:00 20 Mechanical Ventilator 90 06/27/20 05:45 88 18 94/63 (73) 100 06/27/20 05:30 89 20 95/60 (72) 100 06/27/20 05:15 91 18 101/62 (75) 90 06/27/20 05:13 99 18 102/64 (77) 73 06/27/20 05:00 90 22 88 06/27/20 04:45 87 20 103/62 (76) 86 06/27/20 04:30 85 20 116/54 (74) 89 06/27/20 04:15 80 17 102/58 (73) 100 06/27/20 04:14 83 06/27/20 04:00 Mechanical Ventilator Mechanical Ventilator 06/27/20 04:00 19 Mechanical Ventilator 80 06/27/20 04:00 98.6 81 17 101/54 (70) 100 06/27/20 03:45 82 17 97/57 (70) 100 06/27/20 03:30 82 18 101/56 (71) 100 06/27/20 03:30 78 20 80 06/27/20 03:15 84 20 100/59 (73) 99 06/27/20 03:00 84 19 98/54 (69) 100 06/27/20 02:45 93 24 111/65 (80) 97 06/27/20 02:30 83 19 94/55 (68) 100 06/27/20 02:15 84 18 96/58 (71) 100 06/27/20 02:00 18 96/58 Mechanical Ventilator 80 06/27/20 02:00 18 Mechanical Ventilator 80 06/27/20 02:00 90 06/27/20 02:00 96.9 86 20 101/58 (72) 99 06/27/20 01:45 88 20 97/55 (69) 100 06/27/20 01:30 87 17 95/58 (70) 100 06/27/20 01:20 87 20 90 06/27/20 01:15 89 20 101/54 (70) 97 06/27/20 01:00 20 101/54 Mechanical Ventilator 80 06/27/20 01:00 20 Mechanical Ventilator 80 06/27/20 01:00 90 21 104/59 (74) 96 06/27/20 00:53 Mechanical Ventilator 100 06/27/20 00:45 91 23 103/61 (75) 96 06/27/20 00:30 92 21 109/70 (83) 98 06/27/20 00:15 93 14 105/67 (80) 99 06/27/20 00:00 Mechanical Ventilator Mechanical Ventilator 06/27/20 00:00 100 06/27/20 00:00 21 105/67 Mechanical Ventilator 90 06/27/20 00:00 96.9 95 27 104/67 (79) 100 06/26/20 23:45 97 30 99 06/26/20 23:38 97 06/26/20 23:30 98 30 113/73 (86) 99 06/26/20 23:15 97 29 111/60 (77) 99 06/26/20 23:00 99 29 105/63 (77) 100 06/26/20 23:00 30 111/60 Mechanical Ventilator 100 06/26/20 23:00 30 Mechanical Ventilator 100 06/26/20 22:45 100 30 107/64 (78) 06/26/20 22:30 97 26 113/71 (85) 06/26/20 22:27 27 108/63 Mechanical Ventilator 100 06/26/20 22:15 96 30 108/63 (78) 99 06/26/20 22:00 28 Mechanical Ventilator 100 06/26/20 22:00 95 27 102/66 (78) 06/26/20 22:00 100 06/26/20 21:45 97 29 105/68 (80) 06/26/20 21:30 98 29 110/70 (83) 06/26/20 21:15 99 30 113/72 (86) 06/26/20 21:00 30 Mechanical Ventilator 100 06/26/20 21:00 101 32 110/61 (77) 06/26/20 21:00 100 06/26/20 20:45 99 30 115/65 (82) 06/26/20 20:30 100 31 113/65 (81) 06/26/20 20:15 100 34 117/69 (85) 93 06/26/20 20:00 100 06/26/20 20:00 31 Mechanical Ventilator 100 06/26/20 20:00 Mechanical Ventilator Mechanical Ventilator 06/26/20 20:00 97.4 98 30 123/71 (88) 95 06/26/20 19:45 99 32 116/72 (87) 95 06/26/20 19:30 98 33 123/72 (89) 94 06/26/20 19:29 95 06/26/20 19:18 94 30 100 06/26/20 19:00 99 31 121/75 (90) 95 06/26/20 19:00 31 Mechanical Ventilator 100 06/26/20 18:00 93 29 110/72 (85) 96 06/26/20 18:00 29 Mechanical Ventilator 100 06/26/20 17:17 100 06/26/20 17:17 100 06/26/20 17:15 92 29 122/73 (89) 92 06/26/20 17:00 100 06/26/20 17:00 30 Mechanical Ventilator 100 06/26/20 17:00 93 30 114/71 (85) 87 06/26/20 16:00 Mechanical Ventilator Mechanical Ventilator 06/26/20 16:00 97.9 91 29 128/74 (92) 90 06/26/20 16:00 31 Mechanical Ventilator 95 06/26/20 16:00 95 06/26/20 15:48 93 06/26/20 15:36 90 29 95 06/26/20 15:15 94 30 122/76 (91) 95 06/26/20 15:00 92 28 120/71 (87) 97 06/26/20 15:00 29 Mechanical Ventilator 95 06/26/20 14:45 90 28 125/77 (93) 94 06/26/20 14:30 90 30 117/76 (90) 94 06/26/20 14:15 90 30 114/81 (92) 94 06/26/20 14:00 29 Mechanical Ventilator 95 06/26/20 14:00 90 29 114/74 (87) 95 06/26/20 13:45 92 25 122/75 (91) 97 06/26/20 13:45 25 Mechanical Ventilator 90 06/26/20 13:30 27 Mechanical Ventilator 95 06/26/20 13:30 93 27 115/75 (88) 95 06/26/20 13:15 92 28 114/76 (89) 96 06/26/20 13:05 28 Mechanical Ventilator 95 06/26/20 13:00 92 29 118/74 (89) 94 06/26/20 12:45 91 28 115/73 (87) 96 06/26/20 12:35 95 06/26/20 12:30 97 29 116/71 (86) 86 06/26/20 12:26 91 27 118/78 (91) 91 06/26/20 12:15 87 26 93 06/26/20 12:04 85 06/26/20 12:00 Mechanical Ventilator Mechanical Ventilator 06/26/20 12:00 80 06/26/20 12:00 98.1 85 24 106/71 (83) 93 06/26/20 11:23 88 22 90 06/26/20 11:00 21 Mechanical Ventilator 80 06/26/20 11:00 86 21 103/68 (80) 97 06/26/20 10:00 22 Mechanical Ventilator 80 06/26/20 10:00 93 22 103/69 (80) 96 06/26/20 09:45 92 24 108/70 (83) 96 06/26/20 09:30 94 24 103/70 (81) 96 06/26/20 09:15 92 25 105/60 (75) 95 06/26/20 09:00 94 25 100/66 (77) 95 06/26/20 09:00 25 Mechanical Ventilator 80 06/26/20 08:45 22 Mechanical Ventilator 80 06/26/20 08:45 95 22 96 06/26/20 08:45 95 22 105/67 (80) 96 I&O Intake and Output 06/26/20 06/27/20 19:00 07:00 Intake Total 741.843 ml 280 ml Output Total 265 ml 2025 ml Balance 476.843 ml -1745 ml Free Water 200 ml IV Total 741.843 ml 80 ml Output Urine Total 255 ml 2025 ml Stool Total 10 ml 0 ml # Bowel Movements 3 4 Dressing: other Wound: other Cardiovascular: RSR Respiratory: decreased breath sounds Abdomen: soft, non-tender, present bowel sounds Extremities: edema, no tenderness, no cyanosis Laboratory Tests Test 06/26/20 08:43 06/27/20 04:15 Arterial Blood pH 7.432 (7.350-7.450) Arterial Blood Partial Pressure CO2 54.2 mmHg (35.0-45.0) H Arterial Blood Partial Pressure O2 62.2 mmHg (75.0-100.0) L Arterial Blood HCO3 35.3 mmol/L (22.0-26.0) H Arterial Blood Oxygen Saturation 90.3 % (95-100) L Arterial Blood Base Excess 9.6 (-2-2) *H Jeremiah Test Positive White Blood Count 6.6 K/UL (4.8-10.8) Red Blood Count 3.07 M/UL (4.20-5.40) L Hemoglobin 8.7 G/DL (12.0-16.0) L Hematocrit 28.2 % (37.0-47.0) L Mean Corpuscular Volume 92 FL (80-99) Mean Corpuscular Hemoglobin 28.2 PG (27.0-31.0) Mean Corpuscular Hemoglobin Concent 30.7 G/DL (32.0-36.0) L Red Cell Distribution Width 16.8 % (11.6-14.8) H Platelet Count 205 K/UL (150-450) Mean Platelet Volume 7.9 FL (6.5-10.1) Neutrophils (%) (Auto) 65.7 % (45.0-75.0) Lymphocytes (%) (Auto) 22.6 % (20.0-45.0) Monocytes (%) (Auto) 3.6 % (1.0-10.0) Eosinophils (%) (Auto) 7.3 % (0.0-3.0) H Basophils (%) (Auto) 0.7 % (0.0-2.0) Sodium Level 140 MMOL/L (136-145) Potassium Level 3.7 MMOL/L (3.5-5.1) Chloride Level 101 MMOL/L (98-107) Carbon Dioxide Level 36 MMOL/L (21-32) H Anion Gap 3 mmol/L (5-15) L Blood Urea Nitrogen 16 mg/dL (7-18) Creatinine 0.4 MG/DL (0.55-1.30) L Estimat Glomerular Filtration Rate > 60 mL/min (>60) Glucose Level 106 MG/DL (74-106) Uric Acid 1.9 MG/DL (2.6-7.2) L Calcium Level 9.2 MG/DL (8.5-10.1) Phosphorus Level 3.1 MG/DL (2.5-4.9) Magnesium Level 1.7 MG/DL (1.8-2.4) L Total Bilirubin 1.5 MG/DL (0.2-1.0) H Direct Bilirubin 0.5 MG/DL (0.0-0.3) H Aspartate Amino Transf (AST/SGOT) 36 U/L (15-37) Alanine Aminotransferase (ALT/SGPT) 27 U/L (12-78) Alkaline Phosphatase 78 U/L (46-116) C-Reactive Protein, Quantitative 17.5 mg/dL (0.00-0.90) H Pro-B-Type Natriuretic Peptide 521 pg/mL (0-125) H Total Protein 7.1 G/DL (6.4-8.2) Albumin 2.1 G/DL (3.4-5.0) L Globulin 5.0 g/dL Albumin/Globulin Ratio 0.4 (1.0-2.7) L Plan Problems: (1) Respiratory distress (2) Respiratory failure Assessment & Plan: 50-year-old female Covid positive respiratory insufficiency intubated on ventilatory support declining. Leukocytosis increase oxygen requirement. Vent settings per pulmonology reviewed identified and agree. Unfortunately further surgical invention at this time is not appropriate as patient is not a candidate and her current condition. Prognosis overall guarded. Tracheostomy can be considered in the future if recovering or shows improvement and requires unable to be weaned from ventilator support. Currently okay for nutritional optimization with NG tube. Will need significant monit oring for decubitus formation given patient's size and condition. Okay for air mattress tolerated. Turn every 2 hours as tolerated. Patient is otherwise critically ill and blood pressure labile. Will need to monitor closely.Bilateral infiltrates are again demonstrated. Stable tube and line positions. will need trach will need to wean vent first (3) Hypoxia (4) Pneumonia due to COVID-19 virus Assessment & Plan: ++ as per pulm and ID (5) Diabetes mellitus out of control Assessment & Plan: DAILY ESTIMATED NEEDS: Needs based on Critical care, obesity 11-14kcal/kg actual body wt (140kg) kcals/kg 4927-3300 total kcals 1.5-2.0g prot/kg IBW (64.5kg) g protein/kg 96-129 g total protein 25-30ml/kg abw (83kg) mL/kg 4956-2905 total fluid mLs NUTRITION DIAGNOSIS: Swallowing difficulty R/T respiratory failure as evidenced by pt orally intubated and sedated, on OGT feeds. CURRENT TF: Vital 1.2 goal of 60ml/hr ENTERAL NUTRITION RECOMMENDATIONS: Vital AF 1.2 @ 60ml/hr x 24 hrs to provide 1440ml, 1728kcal, 108g prot, 1168ml free water * Maintain current critical care and carb controlled TF formula of Vital AF * TF @ goal meeds 100% est kcal/prot needs * HOB over 30 degrees/ water flush per MD TF may be lowered to 55ml/hr for improved BG control while maintaining Kcal and pro needs. ADDITIONAL RECOMMENDATIONS: * Calibrated bedscale wt * Monitor Propofol rate, need for TF adjustment-> now off * Monitor BGs closely : now improved, on novolog q 6rs + NISS * Monitor lytes- K elevated, monitor need for TF change * Rec bowel regimen- now w/ rectal tube . Az Devine Jun 27, 2020 08:36
[2020-06-27] MEDS: Pantoprazole Inj IVP SCH ×2 (08:37→20:11)
[2020-06-27] MEDS: Docusate 100mg/10ml Liq GT SCH ×2 (08:38→20:11)
[2020-06-27] MEDS: Enoxaparin 40mg Inj SUBQ SCH (08:38)
--- NOTE | 2020-06-27 09:35 | Nephrology Progress Note ---
Assessment/Plan Problem List: (1) DEVENDRA (acute kidney injury) (2) Morbid obesity (3) Diabetes mellitus out of control (4) Pneumonia due to COVID-19 virus (5) Respiratory failure Assessment Acute renal failure Obstructive uropathy, clogged Lennon Respiratory failure COVID-19 pneumonia Morbid obesity Plan June 27: Remains full code. Intubated on ventilator. Labs reviewed. Abnormal electrolyte addressed. Continue to monitor renal parameters and electrolytes. Continue per consultants. June 26: Labs reviewed. Remains full code. Remains intubated. Back on NGT feeding. Continue to monitor renal parameters. June 25: Labs reviewed. Renal parameters stable. Remains full code. Due to positional status patient could not be fed via NG tube. Starting TPN? Is being entertained. Continue per consultants. June 24: Labs reviewed. Renal parameters stable. Remains full code. Remains intubated on ventilator. Continue per consultants. June 23: Labs reviewed. Renal parameters stable. Discussed with RN. Abnormal electrolyte addressed. Remains full code. Remains on ventilator. Continue per consultants. June 22: Labs reviewed. Low potassium addressed. Discussed with RAKEL Moran. Patient full code. Remains on ventilator. Continue to monitor renal parameters. June 21. Labs reviewed. Abnormal electrolyte addressed. Full code. Remains on ventilator. Medication list reviewed. Continue per pulmonary management. DC IV fluid, resume Lasix daily, check chest x-ray. June 20: Labs reviewed. Abnormal electrolytes. Patient remains full code. Continue per consultants. Noted and addressed June 19: Labs reviewed. Abnormal electrolytes noted and addressed. Remains intubated on ventilator. Remains full code. June 18: Labs reviewed. Remains intubated on ventilator. Full code. Abnormal electrolyte addressed. Continue as is. June 17: Labs reviewed. Abnormal electrolytes addressed. Patient remains full code and intubated on ventilator. Continue per consultants. Renal parameters are within normal limits. June 16: Labs reviewed. Potassium chloride replaced. Remains full code. Remains intubated on ventilator. Continue per consultants. Continue to monitor renal parameters. June 15: Labs reviewed. Serum creatinine 1. Stable from renal standpoint to view. Continue per consultants. June 14: Labs reviewed. Full code. Serum creatinine of 3.5 down to 1.4. Low potassium addressed. Continue per current treatment plan. Continue to monitor renal parameters. Midodrine started. Albumin bolus given. Previously: DC Lasix drip Increase Protonix dose Monitor renal parameters, electrolytes Per orders Subjective ROS Limited/Unobtainable: Yes Objective Objective Last 24 Hour Vital Signs Date Time Temp Pulse Resp B/P (MAP) Pulse Ox O2 Delivery O2 Flow Rate FiO2 06/27/20 08:00 104 06/27/20 08:00 17 112/68 Mechanical Ventilator 90 06/27/20 08:00 17 Mechanical Ventilator 90 06/27/20 08:00 90 06/27/20 06:45 91 17 99/57 (71) 100 06/27/20 06:30 92 20 98/62 (74) 100 06/27/20 06:30 86 20 06/27/20 06:15 92 21 99/59 (72) 96 06/27/20 06:00 98 22 107/62 (77) 98 06/27/20 06:00 20 Mechanical Ventilator 90 06/27/20 05:45 88 18 94/63 (73) 100 06/27/20 05:30 89 20 95/60 (72) 100 06/27/20 05:15 91 18 101/62 (75) 90 06/27/20 05:13 99 18 102/64 (77) 73 06/27/20 05:00 90 22 88 06/27/20 04:45 87 20 103/62 (76) 86 06/27/20 04:30 85 20 116/54 (74) 89 06/27/20 04:15 80 17 102/58 (73) 100 06/27/20 04:14 83 06/27/20 04:00 Mechanical Ventilator Mechanical Ventilator 06/27/20 04:00 19 Mechanical Ventilator 80 06/27/20 04:00 98.6 81 17 101/54 (70) 100 06/27/20 03:45 82 17 97/57 (70) 100 06/27/20 03:30 82 18 101/56 (71) 100 06/27/20 03:30 78 20 80 06/27/20 03:15 84 20 100/59 (73) 99 06/27/20 03:00 84 19 98/54 (69) 100 06/27/20 02:45 93 24 111/65 (80) 97 06/27/20 02:30 83 19 94/55 (68) 100 06/27/20 02:15 84 18 96/58 (71) 100 06/27/20 02:00 18 96/58 Mechanical Ventilator 80 06/27/20 02:00 18 Mechanical Ventilator 80 06/27/20 02:00 90 06/27/20 02:00 96.9 86 20 101/58 (72) 99 06/27/20 01:45 88 20 97/55 (69) 100 06/27/20 01:30 87 17 95/58 (70) 100 06/27/20 01:20 87 20 90 06/27/20 01:15 89 20 101/54 (70) 97 06/27/20 01:00 20 101/54 Mechanical Ventilator 80 06/27/20 01:00 20 Mechanical Ventilator 80 06/27/20 01:00 90 21 104/59 (74) 96 06/27/20 00:53 Mechanical Ventilator 100 06/27/20 00:45 91 23 103/61 (75) 96 06/27/20 00:30 92 21 109/70 (83) 98 06/27/20 00:15 93 14 105/67 (80) 99 06/27/20 00:00 Mechanical Ventilator Mechanical Ventilator 06/27/20 00:00 100 06/27/20 00:00 21 105/67 Mechanical Ventilator 90 06/27/20 00:00 96.9 95 27 104/67 (79) 100 06/26/20 23:45 97 30 99 06/26/20 23:38 97 06/26/20 23:30 98 30 113/73 (86) 99 06/26/20 23:15 97 29 111/60 (77) 99 06/26/20 23:00 99 29 105/63 (77) 100 06/26/20 23:00 30 111/60 Mechanical Ventilator 100 06/26/20 23:00 30 Mechanical Ventilator 100 06/26/20 22:45 100 30 107/64 (78) 06/26/20 22:30 97 26 113/71 (85) 06/26/20 22:27 27 108/63 Mechanical Ventilator 100 06/26/20 22:15 96 30 108/63 (78) 99 06/26/20 22:00 28 Mechanical Ventilator 100 06/26/20 22:00 95 27 102/66 (78) 06/26/20 22:00 100 06/26/20 21:45 97 29 105/68 (80) 06/26/20 21:30 98 29 110/70 (83) 06/26/20 21:15 99 30 113/72 (86) 06/26/20 21:00 30 Mechanical Ventilator 100 06/26/20 21:00 101 32 110/61 (77) 06/26/20 21:00 100 06/26/20 20:45 99 30 115/65 (82) 06/26/20 20:30 100 31 113/65 (81) 06/26/20 20:15 100 34 117/69 (85) 93 06/26/20 20:00 100 06/26/20 20:00 31 Mechanical Ventilator 100 06/26/20 20:00 Mechanical Ventilator Mechanical Ventilator 06/26/20 20:00 97.4 98 30 123/71 (88) 95 06/26/20 19:45 99 32 116/72 (87) 95 06/26/20 19:30 98 33 123/72 (89) 94 06/26/20 19:29 95 06/26/20 19:18 94 30 100 06/26/20 19:00 99 31 121/75 (90) 95 06/26/20 19:00 31 Mechanical Ventilator 100 06/26/20 18:00 93 29 110/72 (85) 96 06/26/20 18:00 29 Mechanical Ventilator 100 06/26/20 17:17 100 06/26/20 17:17 100 06/26/20 17:15 92 29 122/73 (89) 92 06/26/20 17:00 100 06/26/20 17:00 30 Mechanical Ventilator 100 06/26/20 17:00 93 30 114/71 (85) 87 06/26/20 16:00 Mechanical Ventilator Mechanical Ventilator 06/26/20 16:00 97.9 91 29 128/74 (92) 90 06/26/20 16:00 31 Mechanical Ventilator 95 06/26/20 16:00 95 06/26/20 15:48 93 06/26/20 15:36 90 29 95 06/26/20 15:15 94 30 122/76 (91) 95 06/26/20 15:00 92 28 120/71 (87) 97 06/26/20 15:00 29 Mechanical Ventilator 95 06/26/20 14:45 90 28 125/77 (93) 94 06/26/20 14:30 90 30 117/76 (90) 94 2/3/21 14:15 90 30 114/81 (92) 94 06/26/20 14:00 29 Mechanical Ventilator 95 06/26/20 14:00 90 29 114/74 (87) 95 06/26/20 13:45 92 25 122/75 (91) 97 06/26/20 13:45 25 Mechanical Ventilator 90 06/26/20 13:30 27 Mechanical Ventilator 95 06/26/20 13:30 93 27 115/75 (88) 95 06/26/20 13:15 92 28 114/76 (89) 96 06/26/20 13:05 28 Mechanical Ventilator 95 06/26/20 13:00 92 29 118/74 (89) 94 06/26/20 12:45 91 28 115/73 (87) 96 06/26/20 12:35 95 06/26/20 12:30 97 29 116/71 (86) 86 06/26/20 12:26 91 27 118/78 (91) 91 06/26/20 12:15 87 26 93 06/26/20 12:04 85 06/26/20 12:00 Mechanical Ventilator Mechanical Ventilator 06/26/20 12:00 80 06/26/20 12:00 98.1 85 24 106/71 (83) 93 06/26/20 11:23 88 22 90 06/26/20 11:00 21 Mechanical Ventilator 80 06/26/20 11:00 86 21 103/68 (80) 97 06/26/20 10:00 22 Mechanical Ventilator 80 06/26/20 10:00 93 22 103/69 (80) 96 06/26/20 09:45 92 24 108/70 (83) 96 Intake and Output 06/26/20 06/27/20 19:00 07:00 Intake Total 741.843 ml 280 ml Output Total 265 ml 2025 ml Balance 476.843 ml -1745 ml Free Water 200 ml IV Total 741.843 ml 80 ml Output Urine Total 255 ml 2025 ml Stool Total 10 ml 0 ml # Bowel Movements 3 4 Current Medications Medications (Trade) Dose Ordered Sig/Zelda Route PRN Reason Start Time Stop Time Status Last Admin Dose Admin Acetaminophen (Tylenol) 650 mg Q4H PRN NG Temp >100.5 05/31/20 21:45 06/30/20 21:44 06/21/20 12:19 Acetaminophen (Tylenol) 650 mg Q6H PRN NG Mild Pain (Pain Scale 1-3) 06/06/20 18:00 07/06/20 17:59 06/13/20 23:10 Chlorhexidine Gluconate (Inna-Hex 2%) 1 applic DAILY@2000 TOPIC 05/30/20 20:00 08/28/20 19:59 06/26/20 20:07 Dextrose (Dextrose 50%) 25 ml Q30M PRN IV Hypoglycemia 06/05/20 10:45 09/03/20 10:44 Dextrose (Dextrose 50%) 50 ml Q30M PRN IV Hypoglycemia 06/05/20 10:45 09/03/20 10:44 Dextrose/Sodium Chloride 1,000 ml @ 50 mls/hr Q20H IV 06/24/20 16:30 07/24/20 16:29 06/27/20 04:33 Docusate Sodium (Colace) 100 mg Q12HR GT 06/07/20 21:00 07/07/20 20:59 06/25/20 20:44 Enoxaparin Sodium (Lovenox) 40 mg DAILY SUBQ 05/30/20 10:00 08/28/20 09:59 06/27/20 08:38 Fentanyl Citrate 250 ml @ 0 mls/hr Q24H PRN IV . 06/26/20 22:00 06/28/20 21:59 06/26/20 22:27 Furosemide (Lasix) 40 mg DAILY IV 06/22/20 09:00 07/22/20 08:59 06/27/20 08:37 Insulin Aspart (NovoLOG) EVERY 6 HOURS SUBQ 06/07/20 00:00 09/03/20 11:59 06/24/20 18:00 Magnesium Sulfate 100 ml @ 100 mls/hr Q1H IVPB 06/27/20 09:00 06/27/20 10:59 Midazolam HCl 100 mg/Sodium Chloride 200 ml @ 0 mls/hr Q24H PRN IV SEDATION 06/25/20 13:30 06/27/20 13:29 06/27/20 00:53 Midodrine (Pro-Amatine) 10 mg Q8HR ORAL 06/14/20 14:00 09/12/20 13:59 06/27/20 06:12 Pantoprazole (Protonix) 40 mg Q12HR IVP 06/13/20 21:00 07/03/20 08:59 06/27/20 08:37 Polyethylene Glycol (Miralax) 17 gm BEDTIME GT 06/07/20 21:00 07/07/20 20:59 06/25/20 20:44 Laboratory Tests 06/27/20 04:15: White Blood Count 6.6, Red Blood Count 3.07L, Hemoglobin 8.7L, Hematocrit 28.2L, Mean Corpuscular Volume 92, Mean Corpuscular Hemoglobin 28.2, Mean Corpuscular Hemoglobin Concent 30.7L, Red Cell Distribution Width 16.8H, Platelet Count 205, Mean Platelet Volume 7.9, Neutrophils (%) (Auto) 65.7, Lymphocytes (%) (Auto) 22.6, Monocytes (%) (Auto) 3.6, Eosinophils (%) (Auto) 7.3H, Basophils (%) (Auto) 0.7, Sodium Level 140, Potassium Level 3.7, Chloride Level 101, Carbon Dioxide Level 36H, Anion Gap 3L, Blood Urea Nitrogen 16, Creatinine 0.4L, Estimat Glomerular Filtration Rate > 60, Glucose Level 106, Uric Acid 1.9L, Calcium Level 9.2, Phosphorus Level 3.1, Magnesium Level 1.7L, Total Bilirubin 1.5H, Direct Bilirubin 0.5H, Aspartate Amino Transf (AST/SGOT) 36, Alanine Aminotransferase (ALT/SGPT) 27, Alkaline Phosphatase 78, C-Reactive Protein, Quantitative 17.5H, Pro-B-Type Natriuretic Peptide 521H, Total Protein 7.1, Albumin 2.1L, Globulin 5.0, Albumin/Globulin Ratio 0.4L 06/27/20 09:01: Arterial Blood pH 7.294L, Arterial Blood Partial Pressure CO2 80.3*H, Arterial Blood Partial Pressure O2 54.7L, Arterial Blood HCO3 38.1H, Arterial Blood Oxygen Saturation 84.7*L, Arterial Blood Base Excess 9.5*H, Jeremiah Test Positive Height (Feet): 5 Height (Inches): 5.00 Weight (Pounds): 308 General Appearance: no apparent distress Cardiovascular: tachycardia Respiratory/Chest: decreased breath sounds Abdomen: distended Rigo Tyler MD Jun 27, 2020 09:35
--- NOTE | 2020-06-27 09:44 | Infectious Diseases Prog Note ---
Assessment/Plan Assessment/Plan A 1. COVID19 pneumonia 2. Hypoxic respiratory failure 3. Morbid obesity 4. DM type with hyperglycemia 5. Thrombocytopenia 6. leukocytosis resolved 7. Serratia pneumonia treated 8. Anemia P 1. Finished remdesivir course 2. Finished steroid course Subjective ROS Limited/Unobtainable: Yes Constitutional: Denies: fever Allergies: Coded Allergies: No Known Allergies (Unverified , 05/28/20) Objective Last 24 Hour Vital Signs Date Time Temp Pulse Resp B/P (MAP) Pulse Ox O2 Delivery O2 Flow Rate FiO2 06/27/20 08:00 104 06/27/20 08:00 17 112/68 Mechanical Ventilator 90 06/27/20 08:00 17 Mechanical Ventilator 90 06/27/20 08:00 90 06/27/20 06:45 91 17 99/57 (71) 100 06/27/20 06:30 92 20 98/62 (74) 100 06/27/20 06:30 86 20 06/27/20 06:15 92 21 99/59 (72) 96 06/27/20 06:00 98 22 107/62 (77) 98 06/27/20 06:00 20 Mechanical Ventilator 90 06/27/20 05:45 88 18 94/63 (73) 100 06/27/20 05:30 89 20 95/60 (72) 100 06/27/20 05:15 91 18 101/62 (75) 90 06/27/20 05:13 99 18 102/64 (77) 73 06/27/20 05:00 90 22 88 06/27/20 04:45 87 20 103/62 (76) 86 06/27/20 04:30 85 20 116/54 (74) 89 06/27/20 04:15 80 17 102/58 (73) 100 06/27/20 04:14 83 06/27/20 04:00 Mechanical Ventilator Mechanical Ventilator 06/27/20 04:00 19 Mechanical Ventilator 80 06/27/20 04:00 98.6 81 17 101/54 (70) 100 06/27/20 03:45 82 17 97/57 (70) 100 06/27/20 03:30 82 18 101/56 (71) 100 06/27/20 03:30 78 20 80 06/27/20 03:15 84 20 100/59 (73) 99 06/27/20 03:00 84 19 98/54 (69) 100 06/27/20 02:45 93 24 111/65 (80) 97 06/27/20 02:30 83 19 94/55 (68) 100 06/27/20 02:15 84 18 96/58 (71) 100 06/27/20 02:00 18 96/58 Mechanical Ventilator 80 06/27/20 02:00 18 Mechanical Ventilator 80 06/27/20 02:00 90 06/27/20 02:00 96.9 86 20 101/58 (72) 99 06/27/20 01:45 88 20 97/55 (69) 100 06/27/20 01:30 87 17 95/58 (70) 100 06/27/20 01:20 87 20 90 06/27/20 01:15 89 20 101/54 (70) 97 06/27/20 01:00 20 101/54 Mechanical Ventilator 80 06/27/20 01:00 20 Mechanical Ventilator 80 06/27/20 01:00 90 21 104/59 (74) 96 06/27/20 00:53 Mechanical Ventilator 100 06/27/20 00:45 91 23 103/61 (75) 96 06/27/20 00:30 92 21 109/70 (83) 98 06/27/20 00:15 93 14 105/67 (80) 99 06/27/20 00:00 Mechanical Ventilator Mechanical Ventilator 06/27/20 00:00 100 06/27/20 00:00 21 105/67 Mechanical Ventilator 90 06/27/20 00:00 96.9 95 27 104/67 (79) 100 06/26/20 23:45 97 30 99 06/26/20 23:38 97 06/26/20 23:30 98 30 113/73 (86) 99 06/26/20 23:15 97 29 111/60 (77) 99 06/26/20 23:00 99 29 105/63 (77) 100 06/26/20 23:00 30 111/60 Mechanical Ventilator 100 06/26/20 23:00 30 Mechanical Ventilator 100 06/26/20 22:45 100 30 107/64 (78) 06/26/20 22:30 97 26 113/71 (85) 06/26/20 22:27 27 108/63 Mechanical Ventilator 100 06/26/20 22:15 96 30 108/63 (78) 99 06/26/20 22:00 28 Mechanical Ventilator 100 06/26/20 22:00 95 27 102/66 (78) 06/26/20 22:00 100 06/26/20 21:45 97 29 105/68 (80) 06/26/20 21:30 98 29 110/70 (83) 06/26/20 21:15 99 30 113/72 (86) 06/26/20 21:00 30 Mechanical Ventilator 100 06/26/20 21:00 101 32 110/61 (77) 06/26/20 21:00 100 06/26/20 20:45 99 30 115/65 (82) 06/26/20 20:30 100 31 113/65 (81) 06/26/20 20:15 100 34 117/69 (85) 93 06/26/20 20:00 100 06/26/20 20:00 31 Mechanical Ventilator 100 06/26/20 20:00 Mechanical Ventilator Mechanical Ventilator 06/26/20 20:00 97.4 98 30 123/71 (88) 95 06/26/20 19:45 99 32 116/72 (87) 95 06/26/20 19:30 98 33 123/72 (89) 94 06/26/20 19:29 95 06/26/20 19:18 94 30 100 06/26/20 19:00 99 31 121/75 (90) 95 06/26/20 19:00 31 Mechanical Ventilator 100 06/26/20 18:00 93 29 110/72 (85) 96 06/26/20 18:00 29 Mechanical Ventilator 100 06/26/20 17:17 100 06/26/20 17:17 100 06/26/20 17:15 92 29 122/73 (89) 92 06/26/20 17:00 100 06/26/20 17:00 30 Mechanical Ventilator 100 06/26/20 17:00 93 30 114/71 (85) 87 06/26/20 16:00 Mechanical Ventilator Mechanical Ventilator 06/26/20 16:00 97.9 91 29 128/74 (92) 90 06/26/20 16:00 31 Mechanical Ventilator 95 06/26/20 16:00 95 06/26/20 15:48 93 06/26/20 15:36 90 29 95 06/26/20 15:15 94 30 122/76 (91) 95 2/3/21 15:00 92 28 120/71 (87) 97 06/26/20 15:00 29 Mechanical Ventilator 95 06/26/20 14:45 90 28 125/77 (93) 94 06/26/20 14:30 90 30 117/76 (90) 94 06/26/20 14:15 90 30 114/81 (92) 94 06/26/20 14:00 29 Mechanical Ventilator 95 06/26/20 14:00 90 29 114/74 (87) 95 06/26/20 13:45 92 25 122/75 (91) 97 06/26/20 13:45 25 Mechanical Ventilator 90 06/26/20 13:30 27 Mechanical Ventilator 95 06/26/20 13:30 93 27 115/75 (88) 95 06/26/20 13:15 92 28 114/76 (89) 96 06/26/20 13:05 28 Mechanical Ventilator 95 06/26/20 13:00 92 29 118/74 (89) 94 06/26/20 12:45 91 28 115/73 (87) 96 06/26/20 12:35 95 06/26/20 12:30 97 29 116/71 (86) 86 06/26/20 12:26 91 27 118/78 (91) 91 06/26/20 12:15 87 26 93 06/26/20 12:04 85 06/26/20 12:00 Mechanical Ventilator Mechanical Ventilator 06/26/20 12:00 80 06/26/20 12:00 98.1 85 24 106/71 (83) 93 06/26/20 11:23 88 22 90 06/26/20 11:00 21 Mechanical Ventilator 80 06/26/20 11:00 86 21 103/68 (80) 97 06/26/20 10:00 22 Mechanical Ventilator 80 06/26/20 10:00 93 22 103/69 (80) 96 06/26/20 09:45 92 24 108/70 (83) 96 Height (Feet): 5 Height (Inches): 5.00 Weight (Pounds): 308 HEENT: other - orally intubated Respiratory/Chest: other - on ventilator, FIO2=90% Cardiovascular: tachycardia, other - R arm PICC line Abdomen: soft, non tender Extremities: other - edema of hands Neurologic/Psychiatric: other - sedated Laboratory Tests Test 2/4/21 04:15 06/27/20 09:01 White Blood Count 6.6 K/UL (4.8-10.8) Red Blood Count 3.07 M/UL (4.20-5.40) L Hemoglobin 8.7 G/DL (12.0-16.0) L Hematocrit 28.2 % (37.0-47.0) L Mean Corpuscular Volume 92 FL (80-99) Mean Corpuscular Hemoglobin 28.2 PG (27.0-31.0) Mean Corpuscular Hemoglobin Concent 30.7 G/DL (32.0-36.0) L Red Cell Distribution Width 16.8 % (11.6-14.8) H Platelet Count 205 K/UL (150-450) Mean Platelet Volume 7.9 FL (6.5-10.1) Neutrophils (%) (Auto) 65.7 % (45.0-75.0) Lymphocytes (%) (Auto) 22.6 % (20.0-45.0) Monocytes (%) (Auto) 3.6 % (1.0-10.0) Eosinophils (%) (Auto) 7.3 % (0.0-3.0) H Basophils (%) (Auto) 0.7 % (0.0-2.0) Sodium Level 140 MMOL/L (136-145) Potassium Level 3.7 MMOL/L (3.5-5.1) Chloride Level 101 MMOL/L (98-107) Carbon Dioxide Level 36 MMOL/L (21-32) H Anion Gap 3 mmol/L (5-15) L Blood Urea Nitrogen 16 mg/dL (7-18) Creatinine 0.4 MG/DL (0.55-1.30) L Estimat Glomerular Filtration Rate > 60 mL/min (>60) Glucose Level 106 MG/DL (74-106) Uric Acid 1.9 MG/DL (2.6-7.2) L Calcium Level 9.2 MG/DL (8.5-10.1) Phosphorus Level 3.1 MG/DL (2.5-4.9) Magnesium Level 1.7 MG/DL (1.8-2.4) L Total Bilirubin 1.5 MG/DL (0.2-1.0) H Direct Bilirubin 0.5 MG/DL (0.0-0.3) H Aspartate Amino Transf (AST/SGOT) 36 U/L (15-37) Alanine Aminotransferase (ALT/SGPT) 27 U/L (12-78) Alkaline Phosphatase 78 U/L (46-116) C-Reactive Protein, Quantitative 17.5 mg/dL (0.00-0.90) H Pro-B-Type Natriuretic Peptide 521 pg/mL (0-125) H Total Protein 7.1 G/DL (6.4-8.2) Albumin 2.1 G/DL (3.4-5.0) L Globulin 5.0 g/dL Albumin/Globulin Ratio 0.4 (1.0-2.7) L Arterial Blood pH 7.294 (7.350-7.450) Arterial Blood Partial Pressure CO2 80.3 mmHg (35.0-45.0) *H Arterial Blood Partial Pressure O2 54.7 mmHg (75.0-100.0) L Arterial Blood HCO3 38.1 mmol/L (22.0-26.0) H Arterial Blood Oxygen Saturation 84.7 % (95-100) *L Arterial Blood Base Excess 9.5 (-2-2) *H Jeremiah Test Positive Current Medications Medications (Trade) Dose Ordered Sig/Zelda Route PRN Reason Start Time Stop Time Status Last Admin Dose Admin Acetaminophen (Tylenol) 650 mg Q4H PRN NG Temp >100.5 05/31/20 21:45 06/30/20 21:44 06/21/20 12:19 Acetaminophen (Tylenol) 650 mg Q6H PRN NG Mild Pain (Pain Scale 1-3) 06/06/20 18:00 07/06/20 17:59 06/13/20 23:10 Chlorhexidine Gluconate (Inna-Hex 2%) 1 applic DAILY@2000 TOPIC 05/30/20 20:00 08/28/20 19:59 06/26/20 20:07 Dextrose (Dextrose 50%) 25 ml Q30M PRN IV Hypoglycemia 06/05/20 10:45 09/03/20 10:44 Dextrose (Dextrose 50%) 50 ml Q30M PRN IV Hypoglycemia 06/05/20 10:45 09/03/20 10:44 Dextrose/Sodium Chloride 1,000 ml @ 50 mls/hr Q20H IV 06/24/20 16:30 07/24/20 16:29 06/27/20 04:33 Docusate Sodium (Colace) 100 mg Q12HR GT 06/07/20 21:00 07/07/20 20:59 06/25/20 20:44 Enoxaparin Sodium (Lovenox) 40 mg DAILY SUBQ 05/30/20 10:00 08/28/20 09:59 06/27/20 08:38 Fentanyl Citrate 250 ml @ 0 mls/hr Q24H PRN IV . 06/26/20 22:00 06/28/20 21:59 06/26/20 22:27 Furosemide (Lasix) 40 mg DAILY IV 06/22/20 09:00 07/22/20 08:59 06/27/20 08:37 Insulin Aspart (NovoLOG) EVERY 6 HOURS SUBQ 06/07/20 00:00 09/03/20 11:59 06/24/20 18:00 Magnesium Sulfate 100 ml @ 100 mls/hr Q1H IVPB 06/27/20 09:00 06/27/20 10:59 Midazolam HCl 100 mg/Sodium Chloride 200 ml @ 0 mls/hr Q24H PRN IV SEDATION 06/25/20 13:30 06/27/20 13:29 06/27/20 00:53 Midodrine (Pro-Amatine) 10 mg Q8HR ORAL 06/14/20 14:00 09/12/20 13:59 06/27/20 06:12 Pantoprazole (Protonix) 40 mg Q12HR IVP 06/13/20 21:00 07/03/20 08:59 06/27/20 08:37 Polyethylene Glycol (Miralax) 17 gm BEDTIME GT 06/07/20 21:00 07/07/20 20:59 06/25/20 20:44 Colt Arana MD Jun 27, 2020 09:44
--- NOTE | 2020-06-27 10:30 | NUR ---
NURSE NOTES: Dr Nava making rounds updated by RN Theresa re pt's status,showed ABG results,no new orders received.
--- NOTE | 2020-06-27 11:04 | Pulmonology Progress Note ---
Subjective ROS Limited/Unobtainable: Yes Interval Events: Remains intubated Constitutional: Denies: fever HEENT: Repors: no symptoms Respiratory: Reports: no symptoms Cardiovascular: Reports: no symptoms Gastrointestinal/Abdominal: Reports: no symptoms Genitourinary: Reports: no symptoms Allergies: Coded Allergies: No Known Allergies (Unverified , 05/28/20) All Systems: reviewed and negative except above Objective Last 24 Hour Vital Signs Date Time Temp Pulse Resp B/P (MAP) Pulse Ox O2 Delivery O2 Flow Rate FiO2 06/27/20 10:00 107 18 111/65 (80) 100 06/27/20 09:00 101 19 114/70 (85) 93 06/27/20 08:00 104 06/27/20 08:00 97.4 96 17 112/68 (83) 93 06/27/20 08:00 17 112/68 Mechanical Ventilator 90 06/27/20 08:00 17 Mechanical Ventilator 90 06/27/20 08:00 90 06/27/20 08:00 Mechanical Ventilator Mechanical Ventilator 06/27/20 07:25 101 18 90 06/27/20 06:45 91 17 99/57 (71) 100 06/27/20 06:30 92 20 98/62 (74) 100 06/27/20 06:30 86 20 06/27/20 06:15 92 21 99/59 (72) 96 06/27/20 06:00 98 22 107/62 (77) 98 06/27/20 06:00 20 Mechanical Ventilator 90 06/27/20 05:45 88 18 94/63 (73) 100 06/27/20 05:30 89 20 95/60 (72) 100 06/27/20 05:15 91 18 101/62 (75) 90 06/27/20 05:13 99 18 102/64 (77) 73 06/27/20 05:00 90 22 88 06/27/20 04:45 87 20 103/62 (76) 86 06/27/20 04:30 85 20 116/54 (74) 89 06/27/20 04:15 80 17 102/58 (73) 100 06/27/20 04:14 83 06/27/20 04:00 Mechanical Ventilator Mechanical Ventilator 06/27/20 04:00 19 Mechanical Ventilator 80 06/27/20 04:00 98.6 81 17 101/54 (70) 100 06/27/20 03:45 82 17 97/57 (70) 100 06/27/20 03:30 82 18 101/56 (71) 100 06/27/20 03:30 78 20 80 06/27/20 03:15 84 20 100/59 (73) 99 06/27/20 03:00 84 19 98/54 (69) 100 06/27/20 02:45 93 24 111/65 (80) 97 06/27/20 02:30 83 19 94/55 (68) 100 06/27/20 02:15 84 18 96/58 (71) 100 06/27/20 02:00 18 96/58 Mechanical Ventilator 80 06/27/20 02:00 18 Mechanical Ventilator 80 06/27/20 02:00 90 06/27/20 02:00 96.9 86 20 101/58 (72) 99 06/27/20 01:45 88 20 97/55 (69) 100 06/27/20 01:30 87 17 95/58 (70) 100 06/27/20 01:20 87 20 90 06/27/20 01:15 89 20 101/54 (70) 97 06/27/20 01:00 20 101/54 Mechanical Ventilator 80 06/27/20 01:00 20 Mechanical Ventilator 80 06/27/20 01:00 90 21 104/59 (74) 96 06/27/20 00:53 Mechanical Ventilator 100 06/27/20 00:45 91 23 103/61 (75) 96 06/27/20 00:30 92 21 109/70 (83) 98 06/27/20 00:15 93 14 105/67 (80) 99 06/27/20 00:00 Mechanical Ventilator Mechanical Ventilator 06/27/20 00:00 100 06/27/20 00:00 21 105/67 Mechanical Ventilator 90 06/27/20 00:00 96.9 95 27 104/67 (79) 100 06/26/20 23:45 97 30 99 06/26/20 23:38 97 06/26/20 23:30 98 30 113/73 (86) 99 06/26/20 23:15 97 29 111/60 (77) 99 06/26/20 23:00 99 29 105/63 (77) 100 06/26/20 23:00 30 111/60 Mechanical Ventilator 100 06/26/20 23:00 30 Mechanical Ventilator 100 06/26/20 22:45 100 30 107/64 (78) 06/26/20 22:30 97 26 113/71 (85) 06/26/20 22:27 27 108/63 Mechanical Ventilator 100 06/26/20 22:15 96 30 108/63 (78) 99 06/26/20 22:00 28 Mechanical Ventilator 100 06/26/20 22:00 95 27 102/66 (78) 06/26/20 22:00 100 06/26/20 21:45 97 29 105/68 (80) 06/26/20 21:30 98 29 110/70 (83) 06/26/20 21:15 99 30 113/72 (86) 06/26/20 21:00 30 Mechanical Ventilator 100 06/26/20 21:00 101 32 110/61 (77) 06/26/20 21:00 100 06/26/20 20:45 99 30 115/65 (82) 06/26/20 20:30 100 31 113/65 (81) 06/26/20 20:15 100 34 117/69 (85) 93 06/26/20 20:00 100 06/26/20 20:00 31 Mechanical Ventilator 100 06/26/20 20:00 Mechanical Ventilator Mechanical Ventilator 06/26/20 20:00 97.4 98 30 123/71 (88) 95 06/26/20 19:45 99 32 116/72 (87) 95 06/26/20 19:30 98 33 123/72 (89) 94 06/26/20 19:29 95 06/26/20 19:18 94 30 100 06/26/20 19:00 99 31 121/75 (90) 95 06/26/20 19:00 31 Mechanical Ventilator 100 06/26/20 18:00 93 29 110/72 (85) 96 06/26/20 18:00 29 Mechanical Ventilator 100 06/26/20 17:17 100 06/26/20 17:17 100 06/26/20 17:15 92 29 122/73 (89) 92 06/26/20 17:00 100 06/26/20 17:00 30 Mechanical Ventilator 100 06/26/20 17:00 93 30 114/71 (85) 87 06/26/20 16:00 Mechanical Ventilator Mechanical Ventilator 06/26/20 16:00 97.9 91 29 128/74 (92) 90 06/26/20 16:00 31 Mechanical Ventilator 95 06/26/20 16:00 95 06/26/20 15:48 93 06/26/20 15:36 90 29 95 06/26/20 15:15 94 30 122/76 (91) 95 06/26/20 15:00 92 28 120/71 (87) 97 06/26/20 15:00 29 Mechanical Ventilator 95 06/26/20 14:45 90 28 125/77 (93) 94 06/26/20 14:30 90 30 117/76 (90) 94 06/26/20 14:15 90 30 114/81 (92) 94 06/26/20 14:00 29 Mechanical Ventilator 95 06/26/20 14:00 90 29 114/74 (87) 95 06/26/20 13:45 92 25 122/75 (91) 97 06/26/20 13:45 25 Mechanical Ventilator 90 06/26/20 13:30 27 Mechanical Ventilator 95 06/26/20 13:30 93 27 115/75 (88) 95 06/26/20 13:15 92 28 114/76 (89) 96 06/26/20 13:05 28 Mechanical Ventilator 95 06/26/20 13:00 92 29 118/74 (89) 94 06/26/20 12:45 91 28 115/73 (87) 96 06/26/20 12:35 95 06/26/20 12:30 97 29 116/71 (86) 86 06/26/20 12:26 91 27 118/78 (91) 91 06/26/20 12:15 87 26 93 06/26/20 12:04 85 06/26/20 12:00 Mechanical Ventilator Mechanical Ventilator 06/26/20 12:00 80 06/26/20 12:00 98.1 85 24 106/71 (83) 93 06/26/20 11:23 88 22 90 Intake and Output 06/26/20 06/27/20 19:00 07:00 Intake Total 741.843 ml 280 ml Output Total 265 ml 2045 ml Balance 476.843 ml -1765 ml Free Water 200 ml IV Total 741.843 ml 80 ml Output Urine Total 255 ml 2045 ml Stool Total 10 ml 0 ml # Bowel Movements 3 4 General Appearance: no acute distress HEENT: normocephalic Respiratory: chest wall non-tender Cardiovascular: normal peripheral pulses Abdomen: normal bowel sounds Laboratory Tests 06/27/20 04:15: White Blood Count 6.6, Red Blood Count 3.07L, Hemoglobin 8.7L, Hematocrit 28.2L, Mean Corpuscular Volume 92, Mean Corpuscular Hemoglobin 28.2, Mean Corpuscular Hemoglobin Concent 30.7L, Red Cell Distribution Width 16.8H, Platelet Count 205, Mean Platelet Volume 7.9, Neutrophils (%) (Auto) 65.7, Lymphocytes (%) (Auto) 22.6, Monocytes (%) (Auto) 3.6, Eosinophils (%) (Auto) 7.3H, Basophils (%) (Auto) 0.7, Sodium Level 140, Potassium Level 3.7, Chloride Level 101, Carbon Dioxide Level 36H, Anion Gap 3L, Blood Urea Nitrogen 16, Creatinine 0.4L, Estimat Glomerular Filtration Rate > 60, Glucose Level 106, Uric Acid 1.9L, Calcium Level 9.2, Phosphorus Level 3.1, Magnesium Level 1.7L, Total Bilirubin 1.5H, Direct Bilirubin 0.5H, Aspartate Amino Transf (AST/SGOT) 36, Alanine Aminotransferase (ALT/SGPT) 27, Alkaline Phosphatase 78, C-Reactive Protein, Quantitative 17.5H, Pro-B-Type Natriuretic Peptide 521H, Total Protein 7.1, Albumin 2.1L, Globulin 5.0, Albumin/Globulin Ratio 0.4L 06/27/20 09:01: Arterial Blood pH 7.294L, Arterial Blood Partial Pressure CO2 80.3*H, Arterial Blood Partial Pressure O2 54.7L, Arterial Blood HCO3 38.1H, Arterial Blood Oxygen Saturation 84.7*L, Arterial Blood Base Excess 9.5*H, Jeremiah Test Positive Current Medications Medications (Trade) Dose Ordered Sig/Zelda Route PRN Reason Start Time Stop Time Status Last Admin Dose Admin Acetaminophen (Tylenol) 650 mg Q4H PRN NG Temp >100.5 05/31/20 21:45 06/30/20 21:44 06/21/20 12:19 Acetaminophen (Tylenol) 650 mg Q6H PRN NG Mild Pain (Pain Scale 1-3) 06/06/20 18:00 07/06/20 17:59 06/13/20 23:10 Chlorhexidine Gluconate (Inna-Hex 2%) 1 applic DAILY@2000 TOPIC 05/30/20 20:00 08/28/20 19:59 06/26/20 20:07 Dextrose (Dextrose 50%) 25 ml Q30M PRN IV Hypoglycemia 06/05/20 10:45 09/03/20 10:44 Dextrose (Dextrose 50%) 50 ml Q30M PRN IV Hypoglycemia 06/05/20 10:45 09/03/20 10:44 Dextrose/Sodium Chloride 1,000 ml @ 50 mls/hr Q20H IV 06/24/20 16:30 07/24/20 16:29 06/27/20 04:33 Docusate Sodium (Colace) 100 mg Q12HR GT 06/07/20 21:00 07/07/20 20:59 06/25/20 20:44 Enoxaparin Sodium (Lovenox) 40 mg DAILY SUBQ 05/30/20 10:00 08/28/20 09:59 06/27/20 08:38 Fentanyl Citrate 250 ml @ 0 mls/hr Q24H PRN IV . 06/26/20 22:00 06/28/20 21:59 06/26/20 22:27 Furosemide (Lasix) 40 mg DAILY IV 06/22/20 09:00 07/22/20 08:59 06/27/20 08:37 Insulin Aspart (NovoLOG) EVERY 6 HOURS SUBQ 06/07/20 00:00 09/03/20 11:59 06/24/20 18:00 Midazolam HCl 100 mg/Sodium Chloride 200 ml @ 0 mls/hr Q24H PRN IV SEDATION 06/25/20 13:30 06/27/20 13:29 06/27/20 00:53 Midodrine (Pro-Amatine) 10 mg Q8HR ORAL 06/14/20 14:00 09/12/20 13:59 06/27/20 06:12 Pantoprazole (Protonix) 40 mg Q12HR IVP 06/13/20 21:00 07/03/20 08:59 06/27/20 08:37 Polyethylene Glycol (Miralax) 17 gm BEDTIME GT 06/07/20 21:00 07/07/20 20:59 06/25/20 20:44 Assessment/Plan Assessment/Plan 1. COVID-19 pneumonia -Intubated 05/28/20 - We will continue broad-spectrum antibiotics. -s/p solumedrol, Rocephin -Continue PEEP 7 - Peak airway pressures high; 48-55 now - FiO2 100% -> 90 ->80->60 ->40 ->80 ->100%; -will continue OGT feeding -Continue sedation; Need to keep patient completely sedated. 2. Hyponatremia -Per primary MD 3. Elevated inflammatory markers - has high D dimer; Lovenox on hold due to hematuria 4. Decrease PEEP Continue weaning efforts May need trach Discussed with surgery Currently FiO2 too high for safe tracheostomy Long discussion with family who wish to wean her off the oxygen eventually instead of trach. Trach if "necessary" per family. Discussed again with niece. She was advised regarding poor prognosis. Discussed with RN. Noted bioethics evaluation. Javier Nava MD Jun 27, 2020 11:04
--- NOTE | 2020-06-27 12:37 | General Progress Note ---
Subjective Allergies: Coded Allergies: No Known Allergies (Unverified , 05/28/20) All Systems: reviewed and negative except above Subjective intubated sedated ng in icu Objective Last 24 Hour Vital Signs Date Time Temp Pulse Resp B/P (MAP) Pulse Ox O2 Delivery O2 Flow Rate FiO2 06/27/20 12:00 17 102/58 Mechanical Ventilator 90 06/27/20 12:00 17 Mechanical Ventilator 90 06/27/20 12:00 90 06/27/20 11:00 16 101/62 Mechanical Ventilator 90 06/27/20 11:00 16 Mechanical Ventilator 90 06/27/20 11:00 110 16 101/62 (75) 100 06/27/20 10:00 107 18 111/65 (80) 100 06/27/20 10:00 16 111/65 Mechanical Ventilator 90 06/27/20 10:00 16 Mechanical Ventilator 90 06/27/20 09:00 17 114/70 Mechanical Ventilator 90 06/27/20 09:00 17 Mechanical Ventilator 90 06/27/20 09:00 101 19 114/70 (85) 93 06/27/20 08:00 104 06/27/20 08:00 90 06/27/20 08:00 97.4 96 17 112/68 (83) 93 06/27/20 08:00 17 112/68 Mechanical Ventilator 90 06/27/20 08:00 17 Mechanical Ventilator 90 06/27/20 08:00 90 06/27/20 08:00 Mechanical Ventilator Mechanical Ventilator 06/27/20 07:25 101 18 90 06/27/20 06:45 91 17 99/57 (71) 100 06/27/20 06:30 92 20 98/62 (74) 100 06/27/20 06:30 86 20 06/27/20 06:15 92 21 99/59 (72) 96 06/27/20 06:00 98 22 107/62 (77) 98 06/27/20 06:00 20 Mechanical Ventilator 90 06/27/20 05:45 88 18 94/63 (73) 100 06/27/20 05:30 89 20 95/60 (72) 100 06/27/20 05:15 91 18 101/62 (75) 90 06/27/20 05:13 99 18 102/64 (77) 73 06/27/20 05:00 90 22 88 06/27/20 04:45 87 20 103/62 (76) 86 06/27/20 04:30 85 20 116/54 (74) 89 06/27/20 04:15 80 17 102/58 (73) 100 06/27/20 04:14 83 06/27/20 04:00 Mechanical Ventilator Mechanical Ventilator 06/27/20 04:00 19 Mechanical Ventilator 80 06/27/20 04:00 98.6 81 17 101/54 (70) 100 06/27/20 03:45 82 17 97/57 (70) 100 06/27/20 03:30 82 18 101/56 (71) 100 06/27/20 03:30 78 20 80 06/27/20 03:15 84 20 100/59 (73) 99 06/27/20 03:00 84 19 98/54 (69) 100 06/27/20 02:45 93 24 111/65 (80) 97 06/27/20 02:30 83 19 94/55 (68) 100 06/27/20 02:15 84 18 96/58 (71) 100 06/27/20 02:00 18 96/58 Mechanical Ventilator 80 06/27/20 02:00 18 Mechanical Ventilator 80 06/27/20 02:00 90 06/27/20 02:00 96.9 86 20 101/58 (72) 99 06/27/20 01:45 88 20 97/55 (69) 100 06/27/20 01:30 87 17 95/58 (70) 100 06/27/20 01:20 87 20 90 06/27/20 01:15 89 20 101/54 (70) 97 06/27/20 01:00 20 101/54 Mechanical Ventilator 80 06/27/20 01:00 20 Mechanical Ventilator 80 06/27/20 01:00 90 21 104/59 (74) 96 06/27/20 00:53 Mechanical Ventilator 100 06/27/20 00:45 91 23 103/61 (75) 96 06/27/20 00:30 92 21 109/70 (83) 98 06/27/20 00:15 93 14 105/67 (80) 99 06/27/20 00:00 Mechanical Ventilator Mechanical Ventilator 06/27/20 00:00 100 06/27/20 00:00 21 105/67 Mechanical Ventilator 90 06/27/20 00:00 96.9 95 27 104/67 (79) 100 2 23:45 97 30 99 2 23:38 97 2 23:30 98 30 113/73 (86) 99 2 23:15 97 29 111/60 (77) 99 2/08/11 23:00 99 29 105/63 (77) 100 2 23:00 30 111/60 Mechanical Ventilator 100 06/26/20 23:00 30 Mechanical Ventilator 100 06/26/20 22:45 100 30 107/64 (78) 2 22:30 97 26 113/71 (85) 06/26/20 22:27 27 108/63 Mechanical Ventilator 100 06/26/20 22:15 96 30 108/63 (78) 99 06/26/20 22:00 28 Mechanical Ventilator 100 06/26/20 22:00 95 27 102/66 (78) 06/26/20 22:00 100 06/26/20 21:45 97 29 105/68 (80) 06/26/20 21:30 98 29 110/70 (83) 06/26/20 21:15 99 30 113/72 (86) 06/26/20 21:00 30 Mechanical Ventilator 100 06/26/20 21:00 101 32 110/61 (77) 06/26/20 21:00 100 06/26/20 20:45 99 30 115/65 (82) 06/26/20 20:30 100 31 113/65 (81) 06/26/20 20:15 100 34 117/69 (85) 93 06/26/20 20:00 100 06/26/20 20:00 31 Mechanical Ventilator 100 06/26/20 20:00 Mechanical Ventilator Mechanical Ventilator 06/26/20 20:00 97.4 98 30 123/71 (88) 95 21 19:45 99 32 116/72 (87) 95 06/26/20 19:30 98 33 123/72 (89) 94 06/26/20 19:29 95 06/26/20 19:18 94 30 100 06/26/20 19:00 99 31 121/75 (90) 95 21 19:00 31 Mechanical Ventilator 100 06/26/20 18:00 93 29 110/72 (85) 96 06/26/20 18:00 29 Mechanical Ventilator 100 2/3/21 17:17 100 06/26/20 17:17 100 06/26/20 17:15 92 29 122/73 (89) 92 06/26/20 17:00 100 06/26/20 17:00 30 Mechanical Ventilator 100 06/26/20 17:00 93 30 114/71 (85) 87 06/26/20 16:00 Mechanical Ventilator Mechanical Ventilator 06/26/20 16:00 97.9 91 29 128/74 (92) 90 06/26/20 16:00 31 Mechanical Ventilator 95 06/26/20 16:00 95 06/26/20 15:48 93 06/26/20 15:36 90 29 95 06/26/20 15:15 94 30 122/76 (91) 95 06/26/20 15:00 92 28 120/71 (87) 97 06/26/20 15:00 29 Mechanical Ventilator 95 06/26/20 14:45 90 28 125/77 (93) 94 06/26/20 14:30 90 30 117/76 (90) 94 06/26/20 14:15 90 30 114/81 (92) 94 06/26/20 14:00 29 Mechanical Ventilator 95 06/26/20 14:00 90 29 114/74 (87) 95 06/26/20 13:45 92 25 122/75 (91) 97 06/26/20 13:45 25 Mechanical Ventilator 90 06/26/20 13:30 27 Mechanical Ventilator 95 06/26/20 13:30 93 27 115/75 (88) 95 06/26/20 13:15 92 28 114/76 (89) 96 06/26/20 13:05 28 Mechanical Ventilator 95 06/26/20 13:00 92 29 118/74 (89) 94 06/26/20 12:45 91 28 115/73 (87) 96 Intake and Output 06/26/20 06/27/20 19:00 07:00 Intake Total 741.843 ml 280 ml Output Total 265 ml 2045 ml Balance 476.843 ml -1765 ml Free Water 200 ml IV Total 741.843 ml 80 ml Output Urine Total 255 ml 2045 ml Stool Total 10 ml 0 ml # Bowel Movements 3 4 Laboratory Tests 06/27/20 04:15: White Blood Count 6.6, Red Blood Count 3.07L, Hemoglobin 8.7L, Hematocrit 28.2L, Mean Corpuscular Volume 92, Mean Corpuscular Hemoglobin 28.2, Mean Corpuscular Hemoglobin Concent 30.7L, Red Cell Distribution Width 16.8H, Platelet Count 205, Mean Platelet Volume 7.9, Neutrophils (%) (Auto) 65.7, Lymphocytes (%) (Auto) 22.6, Monocytes (%) (Auto) 3.6, Eosinophils (%) (Auto) 7.3H, Basophils (%) (Auto) 0.7, Sodium Level 140, Potassium Level 3.7, Chloride Level 101, Carbon Dioxide Level 36H, Anion Gap 3L, Blood Urea Nitrogen 16, Creatinine 0.4L, Estimat Glomerular Filtration Rate > 60, Glucose Level 106, Uric Acid 1.9L, Calcium Level 9.2, Phosphorus Level 3.1, Magnesium Level 1.7L, Total Bilirubin 1.5H, Direct Bilirubin 0.5H, Aspartate Amino Transf (AST/SGOT) 36, Alanine Aminotransferase (ALT/SGPT) 27, Alkaline Phosphatase 78, C-Reactive Protein, Quantitative 17.5H, Pro-B-Type Natriuretic Peptide 521H, Total Protein 7.1, Albumin 2.1L, Globulin 5.0, Albumin/Globulin Ratio 0.4L 06/27/20 09:01: Arterial Blood pH 7.294L, Arterial Blood Partial Pressure CO2 80.3*H, Arterial Blood Partial Pressure O2 54.7L, Arterial Blood HCO3 38.1H, Arterial Blood Oxy gen Saturation 84.7*L, Arterial Blood Base Excess 9.5*H, Jeremiah Test Positive Height (Feet): 5 Height (Inches): 5.00 Weight (Pounds): 308 General Appearance: lethargic EENT: normal ENT inspection Neck: normal alignment Cardiovascular: normal peripheral pulses, normal rate, regular rhythm Respiratory/Chest: chest wall non-tender, lungs clear, normal breath sounds Abdomen: normal bowel sounds, non tender, soft Extremities: normal inspection Edema: 1+ Arm (L), 1+ Arm (R), 1+ Leg (L), 1+ Leg (R), 1+ Pedal (L), 1+ Pedal (R), 1+ Generalized Neurologic: motor weakness Skin: normal pigmentation, warm/dry Assessment/Plan Problem List: (1) Hypoxia ICD Codes: R09.02 - Hypoxemia SNOMED: 725319936 (2) Respiratory failure ICD Codes: J96.90 - Respiratory failure, unspecified, unspecified whether with hypoxia or hypercapnia SNOMED: 045331633 (3) Respiratory distress ICD Codes: R06.03 - Acute respiratory distress; J12.82 - Pneumonia due to coronavirus disease 2019 SNOMED: 887488139 (4) Pneumonia due to COVID-19 virus ICD Codes: U07.1 - COVID-19; J12.82 - Pneumonia due to coronavirus disease 2019 SNOMED: 984061661056273002 Status: unchanged Assessment/Plan: vent abx id pulm f/u cbc bmp am Tank Del Cid DO Jun 27, 2020 12:37
--- NOTE | 2020-06-27 13:00 | NUR ---
NURSE NOTES: Marsha Miller titrated Fio2 down to 80%,tolerated well ,no resp distress presented.
--- NOTE | 2020-06-27 14:32 | NUR ---
CASE MANAGEMENT:REVIEW 06/27/20 SI: COVID PNA ACUTE RESPIRATORY FAILURE~ INTUBATED 99.5 115 17 102/58 100% ON VENT W/90% FIO2 H/H-8.7/28.2 PH-7.29 PCO2+80.3 PO2-54.7 HCO3+38.1 O2 SAT-84.7 IS: FENTANYL GTT IVF@50/HR IV LASIX QD IV PROTONIX Q12 LOVENOX SQ QD MIDODRINE NG Q8HRS : ICU STATUS DCP: FROM HOME PLAN: WEAN TOLERATED
[2020-06-27] MEDS: fentaNYL 2500mcg/NS 250ml 250 ML IV PRN (14:44)
--- NOTE | 2020-06-27 17:00 | NUR ---
NURSE NOTES: Pt resting quietly in bed no resp distress noted,Fio2 titrated to 70%,tolerating vent settings.
--- NOTE | 2020-06-27 18:30 | NUR ---
NURSE NOTES: Pt spike temp T102.4 per rectal,ice compress applied to forehead and bilat armpits.Tylenol 650 mg per NGT given,will continue to monitor pt's temp.
[2020-06-27] MEDS: Acetaminophen 650mg/20.3ml NG PRN (19:00)
--- NOTE | 2020-06-27 19:20 | NUR ---
NURSE HAND-OFF REPORT: Latest Vital Signs: Temperature 102.4 , Pulse 125 , B/P 99 /60 , Respiratory Rate 18 , O2 SAT 92 , Mechanical Ventilator, O2 Flow Rate . Vital Sign Comment: unstable EKG Rhythm: Sinus Tachycardia Rhythm change?: N MD Notified?: N - MD Response: Latest Meyers Fall Score: 70 Fall Risk: High Risk Safety Measures: Call light Within Reach, Bed Alarm Zone 1, Side Rails Side Rails x2, Bed position Low and Locked. Fall Precautions: Yellow Socks Report given to .Elidia Gutierrez RN.
--- NOTE | 2020-06-27 19:20 | NUR ---
assumed care of patient from RAKEL Lopez. Pt stable. Will continue to monitor.
[2020-06-27] MEDS: Miralax 17gm pkt GT SCH (20:11)
[2020-06-27] MEDS: Dyna-Hex 2% Top Sol 2oz TOPIC SCH (20:11)
--- NOTE | 2020-06-27 22:00 | NUR ---
Patient remains stable, will continue to monitor.
[2020-06-28] VITALS (64 sets, daily range): BP systolic 77–127; BP diastolic 43–82
--- NOTE | 2020-06-28 | NUR ---
Patient remains stable. Linen changed, bathed. Patient remains stable.
--- NOTE | 2020-06-28 01:00 | NUR ---
Called DOUBLE ENDING MACHINE OPERATOR to change out circuit on vent due to excessive brown secretions in tubing that patient had difficulties getting adequate ventilation. Patient stable, but setting off peak pressures will continue to monitor.
--- NOTE | 2020-06-28 02:00 | NUR ---
This RN broke the circuit on vent momentarily to suction out the excessive thick mott secretions from the tubing so that patient could stop setting off vent alarms. PRACTICAL NURSING FACULTY not at bedside or changing out circuit yet. Will continue to monitor.
[2020-06-28] MEDS: D5 1/2NS 1,000 ML IV SCH ×2 (03:03→19:59)
--- NOTE | 2020-06-28 04:00 | NUR ---
Went to assess patient and found her awake and alert, grimacing. Entire Right side of sheets/pillows/arm is wet. Upon investigation found that the end connector on the Fentanyl and versed lines where they connect to the PICC line was broken and leaking out fluid. Since patient was not receiving sedation she was wide awake. Patient did not follow commands only shook head no and became agitated. Changed out cap and while doing so dropped the fentanyl/versed line onto floor. Due to this, changed out the IV lines and had to reprime the versed line. Due to this the volume is low in gtt and will need to be changed out earlier than scheduled this morning. PICC dressing was saturated and falling off so changed the PICC line dressing using sterile technique. Pt also spiked a temperature of 100.6, administered Tylenol and will continue to monitor patient.
[2020-06-28] MEDS: Acetaminophen 650mg/20.3ml NG PRN (04:02)
[2020-06-28 04:54] LABS: BASOPHILS % (AUTO) 0.7 % (0.0-2.0); EOSINOPHILS % (AUTO) 3.8 % (0.0-3.0); HEMOGLOBIN 9.7 G/DL (12.0-16.0); MEAN CORPUSCULAR VOLUME 94 FL (80-99); MONOCYTES % (AUTO) 2.4 % (1.0-10.0); PLATELET COUNT 253 K/UL (150-450); RED BLOOD COUNT 3.42 M/UL (4.20-5.40); RED CELL DISTRIBUTION WIDTH 16.7 % (11.6-14.8); WHITE BLOOD COUNT 12.3 K/UL (4.8-10.8)
[2020-06-28 05:12] LABS: ANION GAP 5 mmol/L (5-15); BLOOD UREA NITROGEN 22 mg/dL (7-18); CALCIUM 9.2 MG/DL (8.5-10.1); CARBON DIOXIDE 35 MMOL/L (21-32); CHLORIDE 98 MMOL/L (98-107); CREATININE 0.7 MG/DL (0.55-1.30); POTASSIUM 4.6 MMOL/L (3.5-5.1); SODIUM 137 MMOL/L (136-145)
--- NOTE | 2020-06-28 05:53 | General Progress Note ---
Subjective ROS Limited/Unobtainable: Yes Allergies: Coded Allergies: No Known Allergies (Unverified , 05/28/20) Subjective events noted interval notes reviewed glucose values are stable Item Value Date Time Bedside Blood Glucose 113 mg/dl 06/28/20 0000 Bedside Blood Glucose 113 mg/dl 06/27/20 1800 Bedside Blood Glucose 106 mg/dl 06/27/20 1214 Bedside Blood Glucose 111 mg/dl 06/27/20 0600 Objective Last 24 Hour Vital Signs Date Time Temp Pulse Resp B/P (MAP) Pulse Ox O2 Delivery O2 Flow Rate FiO2 06/28/20 05:00 106 18 104/62 (76) 93 06/28/20 04:45 106 21 111/70 (84) 94 06/28/20 04:35 100.4 06/28/20 04:30 111 24 98 06/28/20 04:15 114 27 124/60 (81) 94 06/28/20 04:00 80 06/28/20 04:00 Mechanical Ventilator Mechanical Ventilator 06/28/20 04:00 100.6 111 24 124/70 (88) 95 06/28/20 03:45 108 25 109/63 (78) 98 06/28/20 03:34 112 25 80 06/28/20 03:30 107 20 103/64 (77) 100 06/28/20 03:15 111 24 116/64 (81) 100 06/28/20 03:00 113 24 127/69 (88) 98 06/28/20 02:45 113 27 125/71 (89) 97 06/28/20 02:30 118 25 125/65 (85) 95 06/28/20 02:15 99.6 116 30 120/61 (80) 98 06/28/20 02:00 122 29 122/70 (87) 92 06/28/20 02:00 30 Mechanical Ventilator 70 06/28/20 02:00 30 122/70 Mechanical Ventilator 70 06/28/20 01:45 122 21 118/73 (88) 92 06/28/20 01:30 122 27 120/74 (89) 93 06/28/20 01:15 112 20 118/77 (91) 97 06/28/20 01:06 113 21 122/82 (95) 97 06/28/20 01:00 32 122/82 Mechanical Ventilator 70 06/28/20 01:00 108 19 77/43 (54) 100 06/28/20 00:45 117 21 107/68 (81) 92 06/28/20 00:30 107 22 99/67 (78) 98 06/28/20 00:15 111 23 102/66 (78) 95 06/28/20 00:00 97.8 103 18 113/60 (77) 99 06/28/20 00:00 28 Mechanical Ventilator 70 06/28/20 00:00 19 102/66 Mechanical Ventilator 70 06/28/20 00:00 70 06/28/20 00:00 Mechanical Ventilator Mechanical Ventilator 06/27/20 23:30 100 17 109/63 (78) 94 06/27/20 23:25 108 17 100 06/27/20 23:15 100 23 110/67 (81) 88 06/27/20 23:13 99 06/27/20 23:00 101 21 103/63 (76) 85 06/27/20 23:00 30 Mechanical Ventilator 70 06/27/20 23:00 30 106/60 Mechanical Ventilator 70 06/27/20 22:45 101 15 103/66 (78) 84 06/27/20 22:30 101 15 97/62 (74) 88 06/27/20 22:15 102 16 106/60 (75) 90 06/27/20 22:00 100 13 103/66 (78) 96 06/27/20 22:00 30 Mechanical Ventilator 70 06/27/20 22:00 28 110/67 Mechanical Ventilator 70 06/27/20 21:45 102 14 103/58 (73) 96 06/27/20 21:30 99.1 104 13 104/62 (76) 96 06/27/20 21:15 106 14 110/56 (74) 94 06/27/20 21:00 32 Mechanical Ventilator 70 06/27/20 21:00 28 110/56 Mechanical Ventilator 70 06/27/20 21:00 108 14 106/61 (76) 95 06/27/20 20:45 111 15 104/59 (74) 94 06/27/20 20:30 113 15 109/61 (77) 94 06/27/20 20:15 114 15 103/60 (74) 96 06/27/20 20:00 Mechanical Ventilator Mechanical Ventilator 06/27/20 20:00 99.1 115 14 107/63 (78) 98 06/27/20 20:00 32 Mechanical Ventilator 70 06/27/20 20:00 30 Mechanical Ventilator 70 06/27/20 20:00 15 103/60 Mechanical Ventilator 70 06/27/20 19:45 119 18 99/58 (72) 90 06/27/20 19:34 120 06/27/20 19:33 117 16 80 06/27/20 19:30 102.1 06/27/20 19:30 121 19 98/61 (73) 90 06/27/20 19:15 124 19 99/60 (73) 91 06/27/20 19:00 125 20 99/53 (68) 91 06/27/20 19:00 18 Mechanical Ventilator 70 06/27/20 19:00 18 99/60 Mechanical Ventilator 70 06/27/20 18:00 125 21 98/59 (72) 92 06/27/20 18:00 21 Mechanical Ventilator 80 06/27/20 18:00 21 98/59 Mechanical Ventilator 80 06/27/20 17:00 100.1 125 19 99/63 (75) 92 06/27/20 17:00 19 Mechanical Ventilator 80 06/27/20 17:00 19 99/63 Mechanical Ventilator 80 06/27/20 16:00 100.1 125 20 103/64 (77) 92 06/27/20 16:00 Mechanical Ventilator Mechanical Ventilator 06/27/20 16:00 80 06/27/20 16:00 124 21 102/62 (75) 92 06/27/20 16:00 101 06/27/20 16:00 20 Mechanical Ventilator 80 06/27/20 16:00 19 99/63 Mechanical Ventilator 80 06/27/20 15:37 20 Mechanical Ventilator 80 06/27/20 15:21 121 18 90 06/27/20 15:00 121 17 104/57 (73) 96 06/27/20 15:00 18 104/57 Mechanical Ventilator 80 06/27/20 15:00 17 Mechanical Ventilator 80 06/27/20 14:44 21 105/59 Mechanical Ventilator 80 06/27/20 14:00 121 19 103/58 (73) 96 06/27/20 14:00 17 110/58 Mechanical Ventilator 80 06/27/20 14:00 17 Mechanical Ventilator 80 06/27/20 13:00 80 06/27/20 13:00 20 116/69 Mechanical Ventilator 80 06/27/20 13:00 17 Mechanical Ventilator 80 06/27/20 13:00 121 18 110/58 (75) 96 06/27/20 12:55 17 Mechanical Ventilator 80 06/27/20 12:30 115 18 112/56 (74) 100 06/27/20 12:00 90 06/27/20 12:00 115 06/27/20 12:00 17 102/58 Mechanical Ventilator 90 06/27/20 12:00 17 Mechanical Ventilator 90 06/27/20 12:00 Mechanical Ventilator Mechanical Ventilator 06/27/20 12:00 99.5 115 17 112/55 (74) 100 06/27/20 11:19 115 17 90 06/27/20 11:00 16 101/62 Mechanical Ventilator 90 06/27/20 11:00 16 Mechanical Ventilator 90 06/27/20 11:00 110 16 101/62 (75) 100 06/27/20 10:00 107 18 111/65 (80) 100 06/27/20 10:00 16 111/65 Mechanical Ventilator 90 06/27/20 10:00 16 Mechanical Ventilator 90 06/27/20 09:00 17 114/70 Mechanical Ventilator 90 06/27/20 09:00 17 Mechanical Ventilator 90 06/27/20 09:00 101 19 114/70 (85) 93 06/27/20 08:00 104 06/27/20 08:00 90 06/27/20 08:00 97.4 96 17 112/68 (83) 93 06/27/20 08:00 17 112/68 Mechanical Ventilator 90 06/27/20 08:00 17 Mechanical Ventilator 90 06/27/20 08:00 90 06/27/20 08:00 Mechanical Ventilator Mechanical Ventilator 06/27/20 07:25 101 18 90 06/27/20 06:45 91 17 99/57 (71) 100 06/27/20 06:30 92 20 98/62 (74) 100 06/27/20 06:30 86 20 06/27/20 06:15 92 21 99/59 (72) 96 06/27/20 06:00 98 22 107/62 (77) 98 06/27/20 06:00 20 Mechanical Ventilator 90 Intake and Output 06/27/20 06/28/20 19:00 07:00 Intake Total 1080 ml 720 ml Output Total 1105 ml 230 ml Balance -25 ml 490 ml Free Water 150 ml IV Total 1080 ml 570 ml Output Urine Total 1055 ml 230 ml Stool Total 50 ml 0 ml # Bowel Movements 3 Laboratory Tests 06/27/20 06:06: POC Whole Blood Glucose [Pending] 06/27/20 09:01: Arterial Blood pH 7.294L, Arterial Blood Partial Pressure CO2 80.3*H, Arterial Blood Partial Pressure O2 54.7L, Arterial Blood HCO3 38.1H, Arterial Blood Oxygen Saturation 84.7*L, Arterial Blood Base Excess 9.5*H, Jeremiah Test Positive 06/27/20 17:42: POC Whole Blood Glucose 113H 06/28/20 02:50: White Blood Count 12.3#H, Red Blood Count 3.42L, Hemoglobin 9.7L, Hematocrit 32 .0L, Mean Corpuscular Volume 94, Mean Corpuscular Hemoglobin 28.5, Mean Corpuscular Hemoglobin Concent 30.4L, Red Cell Distribution Width 16.7H, Platelet Count 253, Mean Platelet Volume 8.7, Neutrophils (%) (Auto) 79.0H, Lymphocytes (%) (Auto) 14.0L, Monocytes (%) (Auto) 2.4, Eosinophils (%) (Auto) 3.8H, Basophils (%) (Auto) 0.7, Sodium Level 137, Potassium Level 4.6, Chloride Level 98, Carbon Dioxide Level 35H, Anion Gap 5, Blood Urea Nitrogen 22H, Creatinine 0.7#, Estimat Glomerular Filtration Rate > 60, Glucose Level 124H, Calcium Level 9.2 Height (Feet): 5 Height (Inches): 5.00 Weight (Pounds): 308 Objective Current Medications Medications (Trade) Dose Ordered Sig/Zelda Route PRN Reason Start Time Stop Time Status Last Admin Dose Admin Acetaminophen (Tylenol) 650 mg Q4H PRN NG Temp >100.5 05/31/20 21:45 06/30/20 21:44 06/28/20 04:02 Acetaminophen (Tylenol) 650 mg Q6H PRN NG Mild Pain (Pain Scale 1-3) 06/06/20 18:00 07/06/20 17:59 06/13/20 23:10 Chlorhexidine Gluconate (Inna-Hex 2%) 1 applic DAILY@1999 TOPIC 05/30/20 20:00 08/28/20 19:59 06/27/20 20:11 Dextrose (Dextrose 50%) 25 ml Q30M PRN IV Hypoglycemia 06/05/20 10:45 09/03/20 10:44 Dextrose (Dextrose 50%) 50 ml Q30M PRN IV Hypoglycemia 06/05/20 10:45 09/03/20 10:44 Dextrose/Sodium Chloride 1,000 ml @ 50 mls/hr Q20H IV 06/24/20 16:30 07/24/20 16:29 06/28/20 03:03 Docusate Sodium (Colace) 100 mg Q12HR GT 06/07/20 21:00 07/07/20 20:59 06/25/20 20:44 Enoxaparin Sodium (Lovenox) 40 mg DAILY SUBQ 05/30/20 10:00 08/28/20 09:59 06/27/20 08:38 Fentanyl Citrate 250 ml @ 0 mls/hr Q24H PRN IV . 06/26/20 22:00 06/28/20 21:59 06/27/20 14:44 Furosemide (Lasix) 40 mg DAILY IV 06/22/20 09:00 07/22/20 08:59 06/27/20 08:37 Insulin Aspart (NovoLOG) EVERY 6 HOURS SUBQ 06/07/20 00:00 09/03/20 11:59 06/24/20 18:00 Midazolam HCl 100 mg/Sodium Chloride 200 ml @ 0 mls/hr Q24H PRN IV DIRECTED 06/27/20 15:11 06/29/20 15:10 06/27/20 15:37 Midodrine (Pro-Amatine) 10 mg Q8HR ORAL 06/14/20 14:00 09/12/20 13:59 06/27/20 21:51 Pantoprazole (Protonix) 40 mg Q12HR IVP 06/13/20 21:00 07/03/20 08:59 06/27/20 20:11 Polyethylene Glycol (Miralax) 17 gm BEDTIME GT 06/07/20 21:00 07/07/20 20:59 06/25/20 20:44 Assessment/Plan Problem List: (1) Diabetes mellitus out of control ICD Codes: E11.65 - Type 2 diabetes mellitus with hyperglycemia SNOMED: 26295240, 560253865 (2) Pneumonia due to COVID-19 virus ICD Codes: U07.1 - COVID-19; J12.82 - Pneumonia due to coronavirus disease 2019 SNOMED: 859184246446018805 (3) Respiratory distress ICD Codes: R06.03 - Acute respiratory distress; J12.82 - Pneumonia due to coronavirus disease 2019 SNOMED: 720443734 Status: unchanged Assessment/Plan: no need for basal insulin continue Novolog sliding scale every 6 hours Huber Adame MD Jun 28, 2020 05:53
[2020-06-28] MEDS: NovoLOG Insulin Flexpen SUBQ SCH ×4 (06:00→18:00)
[2020-06-28] MEDS: Midodrine 10mg tab ORAL SCH ×3 (06:00→22:14)
--- NOTE | 2020-06-28 06:00 | NUR ---
Suction canister, OGT piston syringe and canister all changed out this am. Patient remains stable on 80% FiO2. Patient was not dropping sat, so unsure why or when SHR[employer] POND [employer]ER increased FiO2 on patient. I was not notified. Will continue to monitor patient.
--- NOTE | 2020-06-28 06:51 | Hematology/Onc Progress Note ---
Assessment/Plan Assessment/Plan # Thrombocytopenia is due to infection/underlying covid19+++ --> ABX ceftriaxone -->zosyn-->off --> on steriods likely cause of initial wbc --> per pulm --> plt 107->156-->192-->205 --> smear reviewed # Anemia due to chronic disease --> hgb goal is >7 --> transfuse prn --> ferritin is >1000 --> hold off on iron --> 10-->9.8->9-->8-->8.2-->9.4-->8.1-->9.9-->8.7-->9.7 # Elevated ddimer due to covid19++ --> duplex legs is negative --> underlying covid rx # Hypoxia -> due to covid19 # Hypoxemia --> rx same as above # Respiratory failure --> on vent --> per pulm # Pneumonia due to COVID-19 virus --> per pulm rx -> sp remdesivir # Diabetes mellitus out of control --> hgb a1c goal <7 # Poor prognosis # Dvt ppx lovenox sq Appreciate consultation and bowen RN Subjective Allergies: Coded Allergies: No Known Allergies (Unverified , 05/28/20) All Systems: reviewed and negative except above Subjective 06/10 nv, on vent, with ogt, on fentanyl and versed, plt stable 06/11 nv, vent adjusted is on ogt, meds reviewed 06/12 nv, vent, meds noted, labs noted, no bleeding, hgb 10.4 06/13 nv, is on vent, meds reviewed, no bleeding, cbc reviewed 06/14 nv, on vent, tachy, labs reviewed, gross hematuria, febrile overnight, abx 06/17 nv, on vent, labs noted, no major changes, feeling better overnight 06/18 nv, meds reviewed, labs noted, no major events, hgb 8.6 06/19 nv, remains intubated, with fluids, labs reviewed, meds noted 06/20 nv, intubated remains on restraints, meds noted as well, as labs 06/21 nv, remains on vent, on restraints, meds reviewed, labs noted 06/22: covering Dr. Del Cid no acute events 06/23 sedated, on vent, nv, intubated, meds reviewed, versed 06/24 nv, on vent, no night sweats, no bleeding, remains in icu 06/25 nv, on vent, icu, meds noted, no bleeding, comfortable 06/26 nv, on versed, icu, weaning parameters, labs noted 06/27 nv, overnight fighting vent, as per pulm fentanyl on board 06/28 nv, on vent, labs reviewed, as per pulm, meds noted Objective Objective Current Medications Medications (Trade) Dose Ordered Sig/Zelda Route PRN Reason Start Time Stop Time Status Last Admin Dose Admin Acetaminophen (Tylenol) 650 mg Q4H PRN NG Temp >100.5 05/31/20 21:45 06/30/20 21:44 06/28/20 04:02 Acetaminophen (Tylenol) 650 mg Q6H PRN NG Mild Pain (Pain Scale 1-3) 06/06/20 18:00 07/06/20 17:59 06/13/20 23:10 Chlorhexidine Gluconate (Inna-Hex 2%) 1 applic DAILY@2000 TOPIC 05/30/20 20:00 08/28/20 19:59 06/27/20 20:11 Dextrose (Dextrose 50%) 25 ml Q30M PRN IV Hypoglycemia 06/05/20 10:45 09/03/20 10:44 Dextrose (Dextrose 50%) 50 ml Q30M PRN IV Hypoglycemia 06/05/20 10:45 09/03/20 10:44 Dextrose/Sodium Chloride 1,000 ml @ 50 mls/hr Q20H IV 06/24/20 16:30 07/24/20 16:29 06/28/20 03:03 Docusate Sodium (Colace) 100 mg Q12HR GT 06/07/20 21:00 07/07/20 20:59 06/25/20 20:44 Enoxaparin Sodium (Lovenox) 40 mg DAILY SUBQ 05/30/20 10:00 08/28/20 09:59 06/27/20 08:38 Fentanyl Citrate 250 ml @ 0 mls/hr Q24H PRN IV . 06/26/20 22:00 06/28/20 21:59 06/27/20 14:44 Furosemide (Lasix) 40 mg DAILY IV 06/22/20 09:00 07/22/20 08:59 06/27/20 08:37 Insulin Aspart (NovoLOG) EVERY 6 HOURS SUBQ 06/07/20 00:00 09/03/20 11:59 06/24/20 18:00 Midazolam HCl 100 mg/Sodium Chloride 200 ml @ 0 mls/hr Q24H PRN IV DIRECTED 06/27/20 15:11 06/29/20 15:10 06/27/20 15:37 Midodrine (Pro-Amatine) 10 mg Q8HR ORAL 06/14/20 14:00 09/12/20 13:59 06/28/20 06:00 Pantoprazole (Protonix) 40 mg Q12HR IVP 06/13/20 21:00 07/03/20 08:59 06/27/20 20:11 Polyethylene Glycol (Miralax) 17 gm BEDTIME GT 06/07/20 21:00 07/07/20 20:59 06/25/20 20:44 Last 24 Hour Vital Signs Date Time Temp Pulse Resp B/P (MAP) Pulse Ox O2 Delivery O2 Flow Rate FiO2 06/28/20 06:40 86 20 06/28/20 06:30 105 14 102/57 (72) 94 06/28/20 06:15 106 16 113/68 (83) 90 06/28/20 06:00 99.6 106 17 100/65 (77) 90 06/28/20 05:45 108 17 107/59 (75) 89 06/28/20 05:30 107 17 100/68 (79) 89 06/28/20 05:15 106 17 103/62 (76) 91 06/28/20 05:00 106 18 104/62 (76) 93 06/28/20 04:45 106 21 111/70 (84) 94 06/28/20 04:35 100.4 06/28/20 04:30 111 24 98 06/28/20 04:15 114 27 124/60 (81) 94 06/28/20 04:00 80 06/28/20 04:00 Mechanical Ventilator Mechanical Ventilator 06/28/20 04:00 100.6 111 24 124/70 (88) 95 06/28/20 03:45 108 25 109/63 (78) 98 2/5/21 03:34 112 25 80 06/28/20 03:30 107 20 103/64 (77) 100 06/28/20 03:15 111 24 116/64 (81) 100 06/28/20 03:02 68 06/28/20 03:00 113 24 127/69 (88) 98 06/28/20 02:45 113 27 125/71 (89) 97 06/28/20 02:30 118 25 125/65 (85) 95 06/28/20 02:15 99.6 116 30 120/61 (80) 98 06/28/20 02:00 122 29 122/70 (87) 92 06/28/20 02:00 30 Mechanical Ventilator 70 06/28/20 02:00 30 122/70 Mechanical Ventilator 70 06/28/20 01:45 122 21 118/73 (88) 92 06/28/20 01:30 122 27 120/74 (89) 93 06/28/20 01:15 112 20 118/77 (91) 97 06/28/20 01:06 113 21 122/82 (95) 97 06/28/20 01:00 32 122/82 Mechanical Ventilator 70 06/28/20 01:00 108 19 77/43 (54) 100 06/28/20 00:45 117 21 107/68 (81) 92 06/28/20 00:30 107 22 99/67 (78) 98 06/28/20 00:15 111 23 102/66 (78) 95 06/28/20 00:00 97.8 103 18 113/60 (77) 99 06/28/20 00:00 28 Mechanical Ventilator 70 06/28/20 00:00 19 102/66 Mechanical Ventilator 70 06/28/20 00:00 70 06/28/20 00:00 Mechanical Ventilator Mechanical Ventilator 06/27/20 23:30 100 17 109/63 (78) 94 06/27/20 23:25 108 17 100 06/27/20 23:15 100 23 110/67 (81) 88 06/27/20 23:13 99 06/27/20 23:00 101 21 103/63 (76) 85 06/27/20 23:00 30 Mechanical Ventilator 70 06/27/20 23:00 30 106/60 Mechanical Ventilator 70 06/27/20 22:45 101 15 103/66 (78) 84 06/27/20 22:30 101 15 97/62 (74) 88 06/27/20 22:15 102 16 106/60 (75) 90 06/27/20 22:00 100 13 103/66 (78) 96 06/27/20 22:00 30 Mechanical Ventilator 70 06/27/20 22:00 28 110/67 Mechanical Ventilator 70 06/27/20 21:45 102 14 103/58 (73) 96 06/27/20 21:30 99.1 104 13 104/62 (76) 96 06/27/20 21:15 106 14 110/56 (74) 94 06/27/20 21:00 32 Mechanical Ventilator 70 06/27/20 21:00 28 110/56 Mechanical Ventilator 70 06/27/20 21:00 108 14 106/61 (76) 95 06/27/20 20:45 111 15 104/59 (74) 94 06/27/20 20:30 113 15 109/61 (77) 94 06/27/20 20:15 114 15 103/60 (74) 96 06/27/20 20:00 Mechanical Ventilator Mechanical Ventilator 06/27/20 20:00 99.1 115 14 107/63 (78) 98 06/27/20 20:00 32 Mechanical Ventilator 70 06/27/20 20:00 30 Mechanical Ventilator 70 06/27/20 20:00 15 103/60 Mechanical Ventilator 70 06/27/20 19:45 119 18 99/58 (72) 90 06/27/20 19:34 120 06/27/20 19:33 117 16 80 06/27/20 19:30 102.1 06/27/20 19:30 121 19 98/61 (73) 90 06/27/20 19:15 124 19 99/60 (73) 91 06/27/20 19:00 125 20 99/53 (68) 91 06/27/20 19:00 18 Mechanical Ventilator 70 06/27/20 19:00 18 99/60 Mechanical Ventilator 70 06/27/20 18:00 125 21 98/59 (72) 92 06/27/20 18:00 21 Mechanical Ventilator 80 06/27/20 18:00 21 98/59 Mechanical Ventilator 80 06/27/20 17:00 100.1 125 19 99/63 (75) 92 06/27/20 17:00 19 Mechanical Ventilator 80 06/27/20 17:00 19 99/63 Mechanical Ventilator 80 06/27/20 16:00 100.1 125 20 103/64 (77) 92 06/27/20 16:00 Mechanical Ventilator Mechanical Ventilator 06/27/20 16:00 80 06/27/20 16:00 124 21 102/62 (75) 92 06/27/20 16:00 101 06/27/20 16:00 20 Mechanical Ventilator 80 06/27/20 16:00 19 99/63 Mechanical Ventilator 80 06/27/20 15:37 20 Mechanical Ventilator 80 06/27/20 15:21 121 18 90 06/27/20 15:00 121 17 104/57 (73) 96 06/27/20 15:00 18 104/57 Mechanical Ventilator 80 06/27/20 15:00 17 Mechanical Ventilator 80 06/27/20 14:44 21 105/59 Mechanical Ventilator 80 06/27/20 14:00 121 19 103/58 (73) 96 06/27/20 14:00 17 110/58 Mechanical Ventilator 80 06/27/20 14:00 17 Mechanical Ventilator 80 06/27/20 13:00 80 06/27/20 13:00 20 116/69 Mechanical Ventilator 80 06/27/20 13:00 17 Mechanical Ventilator 80 06/27/20 13:00 121 18 110/58 (75) 96 06/27/20 12:55 17 Mechanical Ventilator 80 06/27/20 12:30 115 18 112/56 (74) 100 06/27/20 12:00 90 06/27/20 12:00 115 06/27/20 12:00 17 102/58 Mechanical Ventilator 90 06/27/20 12:00 17 Mechanical Ventilator 90 06/27/20 12:00 Mechanical Ventilator Mechanical Ventilator 06/27/20 12:00 99.5 115 17 112/55 (74) 100 06/27/20 11:19 115 17 90 06/27/20 11:00 16 101/62 Mechanical Ventilator 90 06/27/20 11:00 16 Mechanical Ventilator 90 06/27/20 11:00 110 16 101/62 (75) 100 06/27/20 10:00 107 18 111/65 (80) 100 06/27/20 10:00 16 111/65 Mechanical Ventilator 90 06/27/20 10:00 16 Mechanical Ventilator 90 06/27/20 09:00 17 114/70 Mechanical Ventilator 90 06/27/20 09:00 17 Mechanical Ventilator 90 06/27/20 09:00 101 19 114/70 (85) 93 06/27/20 08:00 104 06/27/20 08:00 90 06/27/20 08:00 97.4 96 17 112/68 (83) 93 06/27/20 08:00 17 112/68 Mechanical Ventilator 90 06/27/20 08:00 17 Mechanical Ventilator 90 06/27/20 08:00 90 06/27/20 08:00 Mechanical Ventilator Mechanical Ventilator 06/27/20 07:25 101 18 90 06/27/20 06:45 91 17 99/57 (71) 100 06/27/20 06:30 92 20 98/62 (74) 100 06/27/20 06:30 86 20 06/27/20 06:15 92 21 99/59 (72) 96 06/27/20 06:00 98 22 107/62 (77) 98 06/27/20 06:00 20 Mechanical Ventilator 90 06/27/20 05:45 88 18 94/63 (73) 100 06/27/20 05:30 89 20 95/60 (72) 100 06/27/20 05:15 91 18 101/62 (75) 90 06/27/20 05:13 99 18 102/64 (77) 73 06/27/20 05:00 90 22 88 06/27/20 04:45 87 20 103/62 (76) 86 06/27/20 04:30 85 20 116/54 (74) 89 06/27/20 04:15 80 17 102/58 (73) 100 06/27/20 04:14 83 06/27/20 04:00 Mechanical Ventilator Mechanical Ventilator 06/27/20 04:00 19 Mechanical Ventilator 80 06/27/20 04:00 98.6 81 17 101/54 (70) 100 06/27/20 03:45 82 17 97/57 (70) 100 06/27/20 03:30 82 18 101/56 (71) 100 06/27/20 03:30 78 20 80 06/27/20 03:15 84 20 100/59 (73) 99 06/27/20 03:00 84 19 98/54 (69) 100 06/27/20 02:45 93 24 111/65 (80) 97 06/27/20 02:30 83 19 94/55 (68) 100 06/27/20 02:15 84 18 96/58 (71) 100 06/27/20 02:00 18 96/58 Mechanical Ventilator 80 06/27/20 02:00 18 Mechanical Ventilator 80 06/27/20 02:00 90 06/27/20 02:00 96.9 86 20 101/58 (72) 99 06/27/20 01:45 88 20 97/55 (69) 100 06/27/20 01:30 87 17 95/58 (70) 100 06/27/20 01:20 87 20 90 06/27/20 01:15 89 20 101/54 (70) 97 06/27/20 01:00 20 101/54 Mechanical Ventilator 80 06/27/20 01:00 20 Mechanical Ventilator 80 06/27/20 01:00 90 21 104/59 (74) 96 06/27/20 00:53 Mechanical Ventilator 100 06/27/20 00:45 91 23 103/61 (75) 96 06/27/20 00:30 92 21 109/70 (83) 98 06/27/20 00:15 93 14 105/67 (80) 99 06/27/20 00:00 Mechanical Ventilator Mechanical Ventilator 06/27/20 00:00 100 06/27/20 00:00 21 105/67 Mechanical Ventilator 90 06/27/20 00:00 96.9 95 27 104/67 (79) 100 06/26/20 23:45 97 30 99 06/26/20 23:38 97 06/26/20 23:30 98 30 113/73 (86) 99 06/26/20 23:15 97 29 111/60 (77) 99 06/26/20 23:00 99 29 105/63 (77) 100 06/26/20 23:00 30 111/60 Mechanical Ventilator 100 06/26/20 23:00 30 Mechanical Ventilator 100 06/26/20 22:45 100 30 107/64 (78) 06/26/20 22:30 97 26 113/71 (85) 06/26/20 22:27 27 108/63 Mechanical Ventilator 100 06/26/20 22:15 96 30 108/63 (78) 99 06/26/20 22:00 28 Mechanical Ventilator 100 06/26/20 22:00 95 27 102/66 (78) 06/26/20 22:00 100 06/26/20 21:45 97 29 105/68 (80) 06/26/20 21:30 98 29 110/70 (83) 06/26/20 21:15 99 30 113/72 (86) 06/26/20 21:00 30 Mechanical Ventilator 100 06/26/20 21:00 101 32 110/61 (77) 06/26/20 21:00 100 06/26/20 20:45 99 30 115/65 (82) 06/26/20 20:30 100 31 113/65 (81) 06/26/20 20:15 100 34 117/69 (85) 93 06/26/20 20:00 100 06/26/20 20:00 15 103/60 Mechanical Ventilator 70 06/26/20 20:00 31 Mechanical Ventilator 100 06/26/20 20:00 Mechanical Ventilator Mechanical Ventilator 06/26/20 20:00 97.4 98 30 123/71 (88) 95 06/26/20 19:45 99 32 116/72 (87) 95 06/26/20 19:30 98 33 123/72 (89) 94 06/26/20 19:29 95 06/26/20 19:18 94 30 100 06/26/20 19:00 99 31 121/75 (90) 95 06/26/20 19:00 31 Mechanical Ventilator 100 06/26/20 18:00 93 29 110/72 (85) 96 06/26/20 18:00 29 Mechanical Ventilator 100 06/26/20 17:17 100 06/26/20 17:17 100 06/26/20 17:15 92 29 122/73 (89) 92 06/26/20 17:00 100 06/26/20 17:00 30 Mechanical Ventilator 100 06/26/20 17:00 93 30 114/71 (85) 87 06/26/20 16:00 Mechanical Ventilator Mechanical Ventilator 06/26/20 16:00 97.9 91 29 128/74 (92) 90 06/26/20 16:00 31 Mechanical Ventilator 95 06/26/20 16:00 95 06/26/20 15:48 93 06/26/20 15:36 90 29 95 06/26/20 15:15 94 30 122/76 (91) 95 06/26/20 15:00 92 28 120/71 (87) 97 2/3/21 15:00 29 Mechanical Ventilator 95 06/26/20 14:45 90 28 125/77 (93) 94 06/26/20 14:30 90 30 117/76 (90) 94 06/26/20 14:15 90 30 114/81 (92) 94 06/26/20 14:00 29 Mechanical Ventilator 95 06/26/20 14:00 90 29 114/74 (87) 95 06/26/20 13:45 92 25 122/75 (91) 97 06/26/20 13:45 25 Mechanical Ventilator 90 06/26/20 13:30 27 Mechanical Ventilator 95 06/26/20 13:30 93 27 115/75 (88) 95 06/26/20 13:15 92 28 114/76 (89) 96 06/26/20 13:05 28 Mechanical Ventilator 95 06/26/20 13:00 92 29 118/74 (89) 94 06/26/20 12:45 91 28 115/73 (87) 96 06/26/20 12:35 95 06/26/20 12:30 97 29 116/71 (86) 86 06/26/20 12:26 91 27 118/78 (91) 91 06/26/20 12:15 87 26 93 06/26/20 12:04 85 06/26/20 12:00 Mechanical Ventilator Mechanical Ventilator 06/26/20 12:00 80 06/26/20 12:00 98.1 85 24 106/71 (83) 93 06/26/20 11:23 88 22 90 06/26/20 11:00 21 Mechanical Ventilator 80 06/26/20 11:00 86 21 103/68 (80) 97 06/26/20 10:00 22 Mechanical Ventilator 80 06/26/20 10:00 93 22 103/69 (80) 96 06/26/20 09:45 92 24 108/70 (83) 96 06/26/20 09:30 94 24 103/70 (81) 96 06/26/20 09:15 92 25 105/60 (75) 95 06/26/20 09:00 94 25 100/66 (77) 95 06/26/20 09:00 25 Mechanical Ventilator 80 06/26/20 08:45 22 Mechanical Ventilator 80 06/26/20 08:45 95 22 96 06/26/20 08:45 95 22 105/67 (80) 96 06/26/20 08:30 94 22 106/63 (77) 95 06/26/20 08:30 22 Mechanical Ventilator 80 06/26/20 08:15 97 27 102/69 (80) 93 06/26/20 08:15 97 27 93 06/26/20 08:00 80 06/26/20 08:00 98.5 96 26 110/70 (83) 94 06/26/20 08:00 26 Mechanical Ventilator 80 06/26/20 08:00 Mechanical Ventilator Mechanical Ventilator 06/26/20 07:28 101 06/26/20 07:28 102 29 80 06/26/20 07:00 99 28 113/72 (86) 94 06/26/20 07:00 30 Mechanical Ventilator 80 Intake and Output 06/27/20 06/28/20 19:00 07:00 Intake Total 1080 ml 820 ml Output Total 1105 ml 240 ml Balance -25 ml 580 ml Free Water 250 ml IV Total 1080 ml 570 ml Output Urine Total 1055 ml 240 ml Stool Total 50 ml 0 ml # Bowel Movements 3 Labs Test 06/25/20 09:46 06/25/20 12:25 06/26/20 04:15 06/26/20 08:43 Arterial Blood pH 7.432 (7.350-7.450) 7.432 (7.350-7.450) Arterial Blood Partial Pressure CO2 48.9 mmHg (35.0-45.0) 54.2 mmHg (35.0-45.0) Arterial Blood Partial Pressure O2 69.2 mmHg (75.0-100.0) 62.2 mmHg (75.0-100.0) Arterial Blood HCO3 31.9 mmol/L (22.0-26.0) 35.3 mmol/L (22.0-26.0) Arterial Blood Oxygen Saturation 92.2 % (95-100) 90.3 % (95-100) Arterial Blood Base Excess 6.7 (-2-2) 9.6 (-2-2) Jeremiah Test Positive Positive POC Whole Blood Glucose 104 MG/DL (74-106) White Blood Count 9.0 K/UL (4.8-10.8) Red Blood Count 3.28 M/UL (4.20-5.40) Hemoglobin 9.5 G/DL (12.0-16.0) Hematocrit 30.2 % (37.0-47.0) Mean Corpuscular Volume 92 FL (80-99) Mean Corpuscular Hemoglobin 28.9 PG (27.0-31.0) Mean Corpuscular Hemoglobin Concent 31.4 G/DL (32.0-36.0) Red Cell Distribution Width 16.5 % (11.6-14.8) Platelet Count 223 K/UL (150-450) Mean Platelet Volume 7.2 FL (6.5-10.1) Neutrophils (%) (Auto) 75.5 % (45.0-75.0) Lymphocytes (%) (Auto) 15.1 % (20.0-45.0) Monocytes (%) (Auto) 3.9 % (1.0-10.0) Eosinophils (%) (Auto) 4.8 % (0.0-3.0) Basophils (%) (Auto) 0.7 % (0.0-2.0) Sodium Level 139 MMOL/L (136-145) Potassium Level 4.4 MMOL/L (3.5-5.1) Chloride Level 99 MMOL/L (98-107) Carbon Dioxide Level 33 MMOL/L (21-32) Anion Gap 7 mmol/L (5-15) Blood Urea Nitrogen 19 mg/dL (7-18) Creatinine 0.5 MG/DL (0.55-1.30) Estimat Glomerular Filtration Rate > 60 mL/min (>60) Glucose Level 123 MG/DL (74-106) Uric Acid 1.8 MG/DL (2.6-7.2) Calcium Level 9.1 MG/DL (8.5-10.1) Phosphorus Level 2.9 MG/DL (2.5-4.9) Magnesium Level 1.8 MG/DL (1.8-2.4) Total Bilirubin 1.7 MG/DL (0.2-1.0) Direct Bilirubin 0.4 MG/DL (0.0-0.3) Aspartate Amino Transf (AST/SGOT) 44 U/L (15-37) Alanine Aminotransferase (ALT/SGPT) 26 U/L (12-78) Alkaline Phosphatase 84 U/L (46-116) C-Reactive Protein, Quantitative 15.4 mg/dL (0.00-0.90) Pro-B-Type Natriuretic Peptide 945 pg/mL (0-125) Total Protein 7.5 G/DL (6.4-8.2) Albumin 2.2 G/DL (3.4-5.0) Globulin 5.3 g/dL Albumin/Globulin Ratio 0.4 (1.0-2.7) Test 06/26/20 12:26 06/27/20 04:15 06/27/20 06:06 06/27/20 09:01 POC Whole Blood Glucose 131 MG/DL (74-106) White Blood Count 6.6 K/UL (4.8-10.8) Red Blood Count 3.07 M/UL (4.20-5.40) Hemoglobin 8.7 G/DL (12.0-16.0) Hematocrit 28.2 % (37.0-47.0) Mean Corpuscular Volume 92 FL (80-99) Mean Corpuscular Hemoglobin 28.2 PG (27.0-31.0) Mean Corpuscular Hemoglobin Concent 30.7 G/DL (32.0-36.0) Red Cell Distribution Width 16.8 % (11.6-14.8) Platelet Count 205 K/UL (150-450) Mean Platelet Volume 7.9 FL (6.5-10.1) Neutrophils (%) (Auto) 65.7 % (45.0-75.0) Lymphocytes (%) (Auto) 22.6 % (20.0-45.0) Monocytes (%) (Auto) 3.6 % (1.0-10.0) Eosinophils (%) (Auto) 7.3 % (0.0-3.0) Basophils (%) (Auto) 0.7 % (0.0-2.0) Sodium Level 140 MMOL/L (136-145) Potassium Level 3.7 MMOL/L (3.5-5.1) Chloride Level 101 MMOL/L (98-107) Carbon Dioxide Level 36 MMOL/L (21-32) Anion Gap 3 mmol/L (5-15) Blood Urea Nitrogen 16 mg/dL (7-18) Creatinine 0.4 MG/DL (0.55-1.30) Estimat Glomerular Filtration Rate > 60 mL/min (>60) Glucose Level 106 MG/DL (74-106) Uric Acid 1.9 MG/DL (2.6-7.2) Calcium Level 9.2 MG/DL (8.5-10.1) Phosphorus Level 3.1 MG/DL (2.5-4.9) Magnesium Level 1.7 MG/DL (1.8-2.4) Total Bilirubin 1.5 MG/DL (0.2-1.0) Direct Bilirubin 0.5 MG/DL (0.0-0.3) Aspartate Amino Transf (AST/SGOT) 36 U/L (15-37) Alanine Aminotransferase (ALT/SGPT) 27 U/L (12-78) Alkaline Phosphatase 78 U/L (46-116) C-Reactive Protein, Quantitative 17.5 mg/dL (0.00-0.90) Pro-B-Type Natriuretic Peptide 521 pg/mL (0-125) Total Protein 7.1 G/DL (6.4-8.2) Albumin 2.1 G/DL (3.4-5.0) Globulin 5.0 g/dL Albumin/Globulin Ratio 0.4 (1.0-2.7) Arterial Blood pH 7.294 (7.350-7.450) Arterial Blood Partial Pressure CO2 80.3 mmHg (35.0-45.0) Arterial Blood Partial Pressure O2 54.7 mmHg (75.0-100.0) Arterial Blood HCO3 38.1 mmol/L (22.0-26.0) Arterial Blood Oxygen Saturation 84.7 % (95-100) Arterial Blood Base Excess 9.5 (-2-2) Jeremiah Test Positive Test 06/27/20 17:42 06/28/20 02:50 POC Whole Blood Glucose 113 MG/DL (74-106) White Blood Count 12.3 K/UL (4.8-10.8) Red Blood Count 3.42 M/UL (4.20-5.40) Hemoglobin 9.7 G/DL (12.0-16.0) Hematocrit 32.0 % (37.0-47.0) Mean Corpuscular Volume 94 FL (80-99) Mean Corpuscular Hemoglobin 28.5 PG (27.0-31.0) Mean Corpuscular Hemoglobin Concent 30.4 G/DL (32.0-36.0) Red Cell Distribution Width 16.7 % (11.6-14.8) Platelet Count 253 K/UL (150-450) Mean Platelet Volume 8.7 FL (6.5-10.1) Neutrophils (%) (Auto) 79.0 % (45.0-75.0) Lymphocytes (%) (Auto) 14.0 % (20.0-45.0) Monocytes (%) (Auto) 2.4 % (1.0-10.0) Eosinophils (%) (Auto) 3.8 % (0.0-3.0) Basophils (%) (Auto) 0.7 % (0.0-2.0) Sodium Level 137 MMOL/L (136-145) Potassium Level 4.6 MMOL/L (3.5-5.1) Chloride Level 98 MMOL/L (98-107) Carbon Dioxide Level 35 MMOL/L (21-32) Anion Gap 5 mmol/L (5-15) Blood Urea Nitrogen 22 mg/dL (7-18) Creatinine 0.7 MG/DL (0.55-1.30) Estimat Glomerular Filtration Rate > 60 mL/min (>60) Glucose Level 124 MG/DL (74-106) Calcium Level 9.2 MG/DL (8.5-10.1) Height (Feet): 5 Height (Inches): 5.00 Weight (Pounds): 308 Objective GeNL: nv Pulm: vent++ CV: rrr Abd: soft, nt, nd Ext: no nane Myron Condon MD Jun 28, 2020 06:51
[2020-06-28] MEDS: Midazolam HCl 50mg/10ml vial 100 MG in NS 180 ML IV PRN ×3 (07:00→19:59)
--- NOTE | 2020-06-28 07:21 | NUR ---
CASE MANAGEMENT:REVIEW 06/28/20 SI: COVID PNA ACUTE RESPIRATORY FAILURE~ INTUBATED 99.6 105 14 102/58 94% ON VENT W/80% FIO2 WBC+12.3 IS: FENTANYL GTT PRN VERSED GTT PRN IVF@50/HR IV LASIX QD IV PROTONIX Q12 LOVENOX SQ QD MIDODRINE NG Q8HRS : ICU STATUS DCP: FROM HOME PLAN: WEAN TOLERATED
--- NOTE | 2020-06-28 07:35 | NUR ---
NURSE NOTES: Spoke to pt's niece this morning. Updated her on pt's current condition and answered her questions.
--- NOTE | 2020-06-28 07:37 | NUR ---
NURSE NOTES: Report received from Elidia Gutierrez RN. Pt sedated RASS -2. Pt is orally intubated ETT 7.0, 23cm @ the lip line. 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 SR on the monitor. Pt has an left nares NGT- currently NPO. Lennon catheter in place, draining yellow urine. Rectal tube with liquid brown stool in collection bag noted. Skin warm and dry and edematous. LINDA PICC line intact running Fentanyl at 200 mcg/hr, Versed 15 mg/hr, and D5 1/2 NS at 50 ml/hr. Bed locked and in lowest position. will resume plan of care.
--- NOTE | 2020-06-28 08:39 | Pulmonology Progress Note ---
Subjective ROS Limited/Unobtainable: Yes Interval Events: Remains intubated Constitutional: Denies: fever HEENT: Repors: no symptoms Respiratory: Reports: no symptoms Cardiovascular: Reports: no symptoms Gastrointestinal/Abdominal: Reports: no symptoms Genitourinary: Reports: no symptoms Allergies: Coded Allergies: No Known Allergies (Unverified , 05/28/20) All Systems: reviewed and negative except above Objective Last 24 Hour Vital Signs Date Time Temp Pulse Resp B/P (MAP) Pulse Ox O2 Delivery O2 Flow Rate FiO2 06/28/20 08:00 80 06/28/20 07:00 22 Mechanical Ventilator 80 06/28/20 07:00 103 14 99/70 (80) 93 06/28/20 06:40 86 20 06/28/20 06:30 105 14 102/57 (72) 94 06/28/20 06:15 106 16 113/68 (83) 90 06/28/20 06:00 99.6 106 17 100/65 (77) 90 06/28/20 05:45 108 17 107/59 (75) 89 06/28/20 05:30 107 17 100/68 (79) 89 06/28/20 05:15 106 17 103/62 (76) 91 06/28/20 05:00 106 18 104/62 (76) 93 06/28/20 04:45 106 21 111/70 (84) 94 06/28/20 04:35 100.4 06/28/20 04:30 111 24 98 06/28/20 04:15 114 27 124/60 (81) 94 06/28/20 04:00 80 06/28/20 04:00 Mechanical Ventilator Mechanical Ventilator 06/28/20 04:00 100.6 111 24 124/70 (88) 95 06/28/20 03:45 108 25 109/63 (78) 98 06/28/20 03:34 112 25 80 06/28/20 03:30 107 20 103/64 (77) 100 06/28/20 03:15 111 24 116/64 (81) 100 06/28/20 03:02 68 06/28/20 03:00 113 24 127/69 (88) 98 06/28/20 02:45 113 27 125/71 (89) 97 06/28/20 02:30 118 25 125/65 (85) 95 06/28/20 02:15 99.6 116 30 120/61 (80) 98 06/28/20 02:00 122 29 122/70 (87) 92 06/28/20 02:00 30 Mechanical Ventilator 70 06/28/20 02:00 30 122/70 Mechanical Ventilator 70 06/28/20 01:45 122 21 118/73 (88) 92 06/28/20 01:30 122 27 120/74 (89) 93 06/28/20 01:15 112 20 118/77 (91) 97 06/28/20 01:06 113 21 122/82 (95) 97 06/28/20 01:00 32 122/82 Mechanical Ventilator 70 06/28/20 01:00 108 19 77/43 (54) 100 06/28/20 00:45 117 21 107/68 (81) 92 06/28/20 00:30 107 22 99/67 (78) 98 06/28/20 00:15 111 23 102/66 (78) 95 06/28/20 00:00 97.8 103 18 113/60 (77) 99 06/28/20 00:00 28 Mechanical Ventilator 70 06/28/20 00:00 19 102/66 Mechanical Ventilator 70 06/28/20 00:00 70 06/28/20 00:00 Mechanical Ventilator Mechanical Ventilator 06/27/20 23:30 100 17 109/63 (78) 94 06/27/20 23:25 108 17 100 06/27/20 23:15 100 23 110/67 (81) 88 06/27/20 23:13 99 06/27/20 23:00 101 21 103/63 (76) 85 06/27/20 23:00 30 Mechanical Ventilator 70 06/27/20 23:00 30 106/60 Mechanical Ventilator 70 06/27/20 22:45 101 15 103/66 (78) 84 06/27/20 22:30 101 15 97/62 (74) 88 06/27/20 22:15 102 16 106/60 (75) 90 06/27/20 22:00 100 13 103/66 (78) 96 06/27/20 22:00 30 Mechanical Ventilator 70 06/27/20 22:00 28 110/67 Mechanical Ventilator 70 06/27/20 21:45 102 14 103/58 (73) 96 2/4/21 21:30 99.1 104 13 104/62 (76) 96 06/27/20 21:15 106 14 110/56 (74) 94 06/27/20 21:00 32 Mechanical Ventilator 70 06/27/20 21:00 28 110/56 Mechanical Ventilator 70 06/27/20 21:00 108 14 106/61 (76) 95 06/27/20 20:45 111 15 104/59 (74) 94 06/27/20 20:30 113 15 109/61 (77) 94 06/27/20 20:15 114 15 103/60 (74) 96 06/27/20 20:00 Mechanical Ventilator Mechanical Ventilator 06/27/20 20:00 99.1 115 14 107/63 (78) 98 06/27/20 20:00 32 Mechanical Ventilator 70 06/27/20 20:00 30 Mechanical Ventilator 70 06/27/20 20:00 15 103/60 Mechanical Ventilator 70 06/27/20 19:45 119 18 99/58 (72) 90 06/27/20 19:34 120 06/27/20 19:33 117 16 80 06/27/20 19:30 102.1 06/27/20 19:30 121 19 98/61 (73) 90 06/27/20 19:15 124 19 99/60 (73) 91 06/27/20 19:00 125 20 99/53 (68) 91 06/27/20 19:00 18 Mechanical Ventilator 70 06/27/20 19:00 18 99/60 Mechanical Ventilator 70 06/27/20 18:00 125 21 98/59 (72) 92 06/27/20 18:00 21 Mechanical Ventilator 80 06/27/20 18:00 21 98/59 Mechanical Ventilator 80 06/27/20 17:00 100.1 125 19 99/63 (75) 92 06/27/20 17:00 19 Mechanical Ventilator 80 06/27/20 17:00 19 99/63 Mechanical Ventilator 80 06/27/20 16:00 100.1 125 20 103/64 (77) 92 06/27/20 16:00 Mechanical Ventilator Mechanical Ventilator 06/27/20 16:00 80 06/27/20 16:00 124 21 102/62 (75) 92 06/27/20 16:00 101 06/27/20 16:00 20 Mechanical Ventilator 80 06/27/20 16:00 19 99/63 Mechanical Ventilator 80 06/27/20 15:37 20 Mechanical Ventilator 80 06/27/20 15:21 121 18 90 06/27/20 15:00 121 17 104/57 (73) 96 06/27/20 15:00 18 104/57 Mechanical Ventilator 80 06/27/20 15:00 17 Mechanical Ventilator 80 06/27/20 14:44 21 105/59 Mechanical Ventilator 80 06/27/20 14:00 121 19 103/58 (73) 96 06/27/20 14:00 17 110/58 Mechanical Ventilator 80 06/27/20 14:00 17 Mechanical Ventilator 80 06/27/20 13:00 80 06/27/20 13:00 20 116/69 Mechanical Ventilator 80 06/27/20 13:00 17 Mechanical Ventilator 80 06/27/20 13:00 121 18 110/58 (75) 96 06/27/20 12:55 17 Mechanical Ventilator 80 06/27/20 12:30 115 18 112/56 (74) 100 06/27/20 12:00 90 06/27/20 12:00 115 06/27/20 12:00 17 102/58 Mechanical Ventilator 90 06/27/20 12:00 17 Mechanical Ventilator 90 06/27/20 12:00 Mechanical Ventilator Mechanical Ventilator 06/27/20 12:00 99.5 115 17 112/55 (74) 100 06/27/20 11:19 115 17 90 06/27/20 11:00 16 101/62 Mechanical Ventilator 90 06/27/20 11:00 16 Mechanical Ventilator 90 06/27/20 11:00 110 16 101/62 (75) 100 06/27/20 10:00 107 18 111/65 (80) 100 06/27/20 10:00 16 111/65 Mechanical Ventilator 90 06/27/20 10:00 16 Mechanical Ventilator 90 06/27/20 09:00 17 114/70 Mechanical Ventilator 90 06/27/20 09:00 17 Mechanical Ventilator 90 06/27/20 09:00 101 19 114/70 (85) 93 Intake and Output 06/27/20 06/28/20 19:00 07:00 Intake Total 1080 ml 820 ml Output Total 1105 ml 255 ml Balance -25 ml 565 ml Free Water 250 ml IV Total 1080 ml 570 ml Output Urine Total 1055 ml 255 ml Stool Total 50 ml 0 ml # Bowel Movements 3 General Appearance: no acute distress HEENT: normocephalic Respiratory: chest wall non-tender Cardiovascular: normal peripheral pulses Abdomen: normal bowel sounds Laboratory Tests 06/27/20 09:01: Arterial Blood pH 7.294L, Arterial Blood Partial Pressure CO2 80.3*H, Arterial Blood Partial Pressure O2 54.7L, Arterial Blood HCO3 38.1H, Arterial Blood Oxygen Saturation 84.7*L, Arterial Blood Base Excess 9.5*H, Jeremiah Test Positive 06/27/20 17:42: POC Whole Blood Glucose 113H 06/28/20 02:50: White Blood Count 12.3#H, Red Blood Count 3.42L, Hemoglobin 9.7L, Hematocrit 32.0L, Mean Corpuscular Volume 94, Mean Corpuscular Hemoglobin 28.5, Mean Corpuscular Hemoglobin Concent 30.4L, Red Cell Distribution Width 16.7H, Platelet Count 253, Mean Platelet Volume 8.7, Neutrophils (%) (Auto) 79.0H, Lymphocytes (%) (Auto) 14.0L, Monocytes (%) (Auto) 2.4, Eosinophils (%) (Auto) 3.8H, Basophils (%) (Auto) 0.7, Sodium Level 137, Potassium Level 4.6, Chloride Level 98, Carbon Dioxide Level 35H, Anion Gap 5, Blood Urea Nitrogen 22H, Creatinine 0.7#, Estimat Glomerular Filtration Rate > 60, Glucose Level 124H, Calcium Level 9.2 Current Medications Medications (Trade) Dose Ordered Sig/Zelda Route PRN Reason Start Time Stop Time Status Last Admin Dose Admin Acetaminophen (Tylenol) 650 mg Q4H PRN NG Temp >100.5 05/31/20 21:45 06/30/20 21:44 06/28/20 04:02 Acetaminophen (Tylenol) 650 mg Q6H PRN NG Mild Pain (Pain Scale 1-3) 06/06/20 18:00 07/06/20 17:59 06/13/20 23:10 Chlorhexidine Gluconate (Inna-Hex 2%) 1 applic DAILY@1999 TOPIC 05/30/20 20:00 08/28/20 19:59 06/27/20 20:11 Dextrose (Dextrose 50%) 25 ml Q30M PRN IV Hypoglycemia 06/05/20 10:45 09/03/20 10:44 Dextrose (Dextrose 50%) 50 ml Q30M PRN IV Hypoglycemia 06/05/20 10:45 09/03/20 10:44 Dextrose/Sodium Chloride 1,000 ml @ 50 mls/hr Q20H IV 06/24/20 16:30 07/24/20 16:29 06/28/20 03:03 Docusate Sodium (Colace) 100 mg Q12HR GT 06/07/20 21:00 07/07/20 20:59 06/25/20 20:44 Enoxaparin Sodium (Lovenox) 40 mg DAILY SUBQ 05/30/20 10:00 08/28/20 09:59 06/27/20 08:38 Fentanyl Citrate 250 ml @ 0 mls/hr Q24H PRN IV . 06/26/20 22:00 06/28/20 21:59 06/27/20 14:44 Furosemide (Lasix) 40 mg DAILY IV 06/22/20 09:00 07/22/20 08:59 06/27/20 08:37 Insulin Aspart (NovoLOG) EVERY 6 HOURS SUBQ 06/07/20 00:00 09/03/20 11:59 06/24/20 18:00 Midazolam HCl 100 mg/Sodium Chloride 200 ml @ 0 mls/hr Q24H PRN IV DIRECTED 06/27/20 15:11 06/29/20 15:10 06/28/20 07:00 Midodrine (Pro-Amatine) 10 mg Q8HR ORAL 06/14/20 14:00 09/12/20 13:59 06/28/20 06:00 Pantoprazole (Protonix) 40 mg Q12HR IVP 06/13/20 21:00 07/03/20 08:59 06/27/20 20:11 Polyethylene Glycol (Miralax) 17 gm BEDTIME GT 06/07/20 21:00 07/07/20 20:59 06/25/20 20:44 Assessment/Plan Assessment/Plan 1. COVID-19 pneumonia -Intubated 05/28/20 - We will continue broad-spectrum antibiotics. -s/p solumedrol, Rocephin -Continue PEEP 7 -10 - Peak airway pressures high; 48-55 now - FiO2 100% -> 90 ->80->60 ->40 ->80 ->100 ->80%; -will continue OGT feeding -Continue sedation; Need to keep patient completely sedated. 2. Hyponatremia -Per primary MD 3. Elevated inflammatory markers - has high D dimer; Lovenox on hold due to hematuria 4. Decrease PEEP Continue weaning efforts May need trach Discussed with surgery Currently FiO2 too high for safe tracheostomy Long discussion with family who wish to wean her off the oxygen eventually instead of trach. Trach if "necessary" per family. Discussed again with niece. She was advised regarding poor prognosis. Discussed with RN. Noted bioethics evaluation. Javier Nava MD Jun 28, 2020 08:39
--- NOTE | 2020-06-28 08:53 | Nephrology Progress Note ---
Assessment/Plan Problem List: (1) DEVENDRA (acute kidney injury) (2) Morbid obesity (3) Diabetes mellitus out of control (4) Pneumonia due to COVID-19 virus (5) Respiratory failure Assessment Acute renal failure Obstructive uropathy, clogged Lennon Respiratory failure COVID-19 pneumonia Morbid obesity Plan June 28: Remains full code. Remains intubated on ventilator. Labs reviewed. Vitamin D supplement ordered. Continue to monitor renal parameters. Continue per consultants. June 27: Remains full code. Intubated on ventilator. Labs reviewed. Abnormal electrolyte addressed. Continue to monitor renal parameters and electrolytes. Continue per consultants. June 26: Labs reviewed. Remains full code. Remains intubated. Back on NGT feeding. Continue to monitor renal parameters. June 25: Labs reviewed. Renal parameters stable. Remains full code. Due to positional status patient could not be fed via NG tube. Starting TPN? Is being entertained. Continue per consultants. June 24: Labs reviewed. Renal parameters stable. Remains full code. R emains intubated on ventilator. Continue per consultants. June 23: Labs reviewed. Renal parameters stable. Discussed with RN. Abnormal electrolyte addressed. Remains full code. Remains on ventilator. Continue per consultants. June 22: Labs reviewed. Low potassium addressed. Discussed with RAKEL Moran. Patient full code. Remains on ventilator. Continue to monitor renal parameters. June 21. Labs reviewed. Abnormal electrolyte addressed. Full code. Remains on ventilator. Medication list reviewed. Continue per pulmonary management. DC IV fluid, resume Lasix daily, check chest x-ray. June 20: Labs reviewed. Abnormal electrolytes. Patient remains full code. Continue per consultants. Noted and addressed June 19: Labs reviewed. Abnormal electrolytes noted and addressed. Remains intubated on ventilator. Remains full code. June 18: Labs reviewed. Remains intubated on ventilator. Full code. Abnormal electrolyte addressed. Continue as is. June 17: Labs reviewed. Abnormal electrolytes addressed. Patient remains full code and intubated on ventilator. Continue per consultants. Renal parameters are within normal limits. June 16: Labs reviewed. Potassium chloride replaced. Remains full code. Remains intubated on ventilator. Continue per consultants. Continue to monitor renal parameters. June 15: Labs reviewed. Serum creatinine 1. Stable from renal standpoint to view. Continue per consultants. June 14: Labs reviewed. Full code. Serum creatinine of 3.5 down to 1.4. Low potassium addressed. Continue per current treatment plan. Continue to monitor renal parameters. Midodrine started. Albumin bolus given. Previously: DC Lasix drip Increase Protonix dose Monitor renal parameters, electrolytes Per orders Subjective ROS Limited/Unobtainable: Yes Objective Objective Last 24 Hour Vital Signs Date Time Temp Pulse Resp B/P (MAP) Pulse Ox O2 Delivery O2 Flow Rate FiO2 06/28/20 08:00 80 06/28/20 07:00 22 Mechanical Ventilator 80 06/28/20 07:00 103 14 99/70 (80) 93 06/28/20 06:40 86 20 06/28/20 06:30 105 14 102/57 (72) 94 06/28/20 06:15 106 16 113/68 (83) 90 06/28/20 06:00 99.6 106 17 100/65 (77) 90 06/28/20 05:45 108 17 107/59 (75) 89 06/28/20 05:30 107 17 100/68 (79) 89 06/28/20 05:15 106 17 103/62 (76) 91 06/28/20 05:00 106 18 104/62 (76) 93 06/28/20 04:45 106 21 111/70 (84) 94 06/28/20 04:35 100.4 06/28/20 04:30 111 24 98 06/28/20 04:15 114 27 124/60 (81) 94 06/28/20 04:00 80 06/28/20 04:00 Mechanical Ventilator Mechanical Ventilator 06/28/20 04:00 100.6 111 24 124/70 (88) 95 06/28/20 03:45 108 25 109/63 (78) 98 06/28/20 03:34 112 25 80 06/28/20 03:30 107 20 103/64 (77) 100 06/28/20 03:15 111 24 116/64 (81) 100 06/28/20 03:02 68 06/28/20 03:00 113 24 127/69 (88) 98 06/28/20 02:45 113 27 125/71 (89) 97 06/28/20 02:30 118 25 125/65 (85) 95 06/28/20 02:15 99.6 116 30 120/61 (80) 98 06/28/20 02:00 122 29 122/70 (87) 92 06/28/20 02:00 30 Mechanical Ventilator 70 06/28/20 02:00 30 122/70 Mechanical Ventilator 70 06/28/20 01:45 122 21 118/73 (88) 92 06/28/20 01:30 122 27 120/74 (89) 93 06/28/20 01:15 112 20 118/77 (91) 97 06/28/20 01:06 113 21 122/82 (95) 97 06/28/20 01:00 32 122/82 Mechanical Ventilator 70 06/28/20 01:00 108 19 77/43 (54) 100 06/28/20 00:45 117 21 107/68 (81) 92 06/28/20 00:30 107 22 99/67 (78) 98 06/28/20 00:15 111 23 102/66 (78) 95 06/28/20 00:00 97.8 103 18 113/60 (77) 99 06/28/20 00:00 28 Mechanical Ventilator 70 06/28/20 00:00 19 102/66 Mechanical Ventilator 70 06/28/20 00:00 70 06/28/20 00:00 Mechanical Ventilator Mechanical Ventilator 06/27/20 23:30 100 17 109/63 (78) 94 06/27/20 23:25 108 17 100 06/27/20 23:15 100 23 110/67 (81) 88 06/27/20 23:13 99 06/27/20 23:00 101 21 103/63 (76) 85 06/27/20 23:00 30 Mechanical Ventilator 70 06/27/20 23:00 30 106/60 Mechanical Ventilator 70 06/27/20 22:45 101 15 103/66 (78) 84 06/27/20 22:30 101 15 97/62 (74) 88 06/27/20 22:15 102 16 106/60 (75) 90 06/27/20 22:00 100 13 103/66 (78) 96 06/27/20 22:00 30 Mechanical Ventilator 70 06/27/20 22:00 28 110/67 Mechanical Ventilator 70 06/27/20 21:45 102 14 103/58 (73) 96 06/27/20 21:30 99.1 104 13 104/62 (76) 96 06/27/20 21:15 106 14 110/56 (74) 94 06/27/20 21:00 32 Mechanical Ventilator 70 06/27/20 21:00 28 110/56 Mechanical Ventilator 70 06/27/20 21:00 108 14 106/61 (76) 95 06/27/20 20:45 111 15 104/59 (74) 94 06/27/20 20:30 113 15 109/61 (77) 94 06/27/20 20:15 114 15 103/60 (74) 96 06/27/20 20:00 Mechanical Ventilator Mechanical Ventilator 06/27/20 20:00 99.1 115 14 107/63 (78) 98 06/27/20 20:00 32 Mechanical Ventilator 70 06/27/20 20:00 30 Mechanical Ventilator 70 06/27/20 20:00 15 103/60 Mechanical Ventilator 70 06/27/20 19:45 119 18 99/58 (72) 90 06/27/20 19:34 120 06/27/20 19:33 117 16 80 06/27/20 19:30 102.1 06/27/20 19:30 121 19 98/61 (73) 90 06/27/20 19:15 124 19 99/60 (73) 91 06/27/20 19:00 125 20 99/53 (68) 91 06/27/20 19:00 18 Mechanical Ventilator 70 06/27/20 19:00 18 99/60 Mechanical Ventilator 70 06/27/20 18:00 125 21 98/59 (72) 92 06/27/20 18:00 21 Mechanical Ventilator 80 06/27/20 18:00 21 98/59 Mechanical Ventilator 80 06/27/20 17:00 100.1 125 19 99/63 (75) 92 06/27/20 17:00 19 Mechanical Ventilator 80 06/27/20 17:00 19 99/63 Mechanical Ventilator 80 06/27/20 16:00 100.1 125 20 103/64 (77) 92 06/27/20 16:00 Mechanical Ventilator Mechanical Ventilator 06/27/20 16:00 80 06/27/20 16:00 124 21 102/62 (75) 92 06/27/20 16:00 101 06/27/20 16:00 20 Mechanical Ventilator 80 06/27/20 16:00 19 99/63 Mechanical Ventilator 80 06/27/20 15:37 20 Mechanical Ventilator 80 06/27/20 15:21 121 18 90 06/27/20 15:00 121 17 104/57 (73) 96 06/27/20 15:00 18 104/57 Mechanical Ventilator 80 06/27/20 15:00 17 Mechanical Ventilator 80 06/27/20 14:44 21 105/59 Mechanical Ventilator 80 06/27/20 14:00 121 19 103/58 (73) 96 06/27/20 14:00 17 110/58 Mechanical Ventilator 80 06/27/20 14:00 17 Mechanical Ventilator 80 06/27/20 13:00 80 06/27/20 13:00 20 116/69 Mechanical Ventilator 80 06/27/20 13:00 17 Mechanical Ventilator 80 06/27/20 13:00 121 18 110/58 (75) 96 06/27/20 12:55 17 Mechanical Ventilator 80 06/27/20 12:30 115 18 112/56 (74) 100 06/27/20 12:00 90 06/27/20 12:00 115 06/27/20 12:00 17 102/58 Mechanical Ventilator 90 06/27/20 12:00 17 Mechanical Ventilator 90 06/27/20 12:00 Mechanical Ventilator Mechanical Ventilator 06/27/20 12:00 99.5 115 17 112/55 (74) 100 06/27/20 11:19 115 17 90 06/27/20 11:00 16 101/62 Mechanical Ventilator 90 06/27/20 11:00 16 Mechanical Ventilator 90 06/27/20 11:00 110 16 101/62 (75) 100 06/27/20 10:00 107 18 111/65 (80) 100 06/27/20 10:00 16 111/65 Mechanical Ventilator 90 06/27/20 10:00 16 Mechanical Ventilator 90 06/27/20 09:00 17 114/70 Mechanical Ventilator 90 06/27/20 09:00 17 Mechanical Ventilator 90 06/27/20 09:00 101 19 114/70 (85) 93 Intake and Output 06/27/20 06/28/20 19:00 07:00 Intake Total 1080 ml 820 ml Output Total 1105 ml 255 ml Balance -25 ml 565 ml Free Water 250 ml IV Total 1080 ml 570 ml Output Urine Total 1055 ml 255 ml Stool Total 50 ml 0 ml # Bowel Movements 3 Current Medications Medications (Trade) Dose Ordered Sig/Zelda Route PRN Reason Start Time Stop Time Status Last Admin Dose Admin Acetaminophen (Tylenol) 650 mg Q4H PRN NG Temp >100.5 05/31/20 21:45 06/30/20 21:44 06/28/20 04:02 Acetaminophen (Tylenol) 650 mg Q6H PRN NG Mild Pain (Pain Scale 1-3) 06/06/20 18:00 07/06/20 17:59 06/13/20 23:10 Chlorhexidine Gluconate (Inna-Hex 2%) 1 applic DAILY@2000 TOPIC 05/30/20 20:00 08/28/20 19:59 06/27/20 20:11 Dextrose (Dextrose 50%) 25 ml Q30M PRN IV Hypoglycemia 06/05/20 10:45 09/03/20 10:44 Dextrose (Dextrose 50%) 50 ml Q30M PRN IV Hypoglycemia 06/05/20 10:45 09/03/20 10:44 Dextrose/Sodium Chloride 1,000 ml @ 50 mls/hr Q20H IV 06/24/20 16:30 07/24/20 16:29 06/28/20 03:03 Docusate Sodium (Colace) 100 mg Q12HR GT 06/07/20 21:00 07/07/20 20:59 06/25/20 20:44 Enoxaparin Sodium (Lovenox) 40 mg DAILY SUBQ 05/30/20 10:00 08/28/20 09:59 06/27/20 08:38 Fentanyl Citrate 250 ml @ 0 mls/hr Q24H PRN IV . 06/26/20 22:00 06/28/20 21:59 06/27/20 14:44 Furosemide (Lasix) 40 mg DAILY IV 06/22/20 09:00 07/22/20 08:59 06/27/20 08:37 Insulin Aspart (NovoLOG) EVERY 6 HOURS SUBQ 06/07/20 00:00 09/03/20 11:59 06/24/20 18:00 Midazolam HCl 100 mg/Sodium Chloride 200 ml @ 0 mls/hr Q24H PRN IV DIRECTED 06/27/20 15:11 06/29/20 15:10 06/28/20 07:00 Midodrine (Pro-Amatine) 10 mg Q8HR ORAL 06/14/20 14:00 09/12/20 13:59 06/28/20 06:00 Pantoprazole (Protonix) 40 mg Q12HR IVP 06/13/20 21:00 07/03/20 08:59 06/27/20 20:11 Polyethylene Glycol (Miralax) 17 gm BEDTIME GT 06/07/20 21:00 07/07/20 20:59 06/25/20 20:44 Laboratory Tests 06/27/20 09:01: Arterial Blood pH 7.294L, Arterial Blood Partial Pressure CO2 80.3*H, Arterial Blood Partial Pressure O2 54.7L, Arterial Blood HCO3 38.1H, Arterial Blood Oxygen Saturation 84.7*L, Arterial Blood Base Excess 9.5*H, Jeremiah Test Positive 06/27/20 17:42: POC Whole Blood Glucose 113H 06/28/20 02:50: White Blood Count 12.3#H, Red Blood Count 3.42L, Hemoglobin 9.7L, Hematocrit 32.0L, Mean Corpuscular Volume 94, Mean Corpuscular Hemoglobin 28.5, Mean Corpuscular Hemoglobin Concent 30.4L, Red Cell Distribution Width 16.7H, Platelet Count 253, Mean Platelet Volume 8.7, Neutrophils (%) (Auto) 79.0H, Lymphocytes (%) (Auto) 14.0L, Monocytes (%) (Auto) 2.4, Eosinophils (%) (Auto) 3.8H, Basophils (%) (Auto) 0.7, Sodium Level 137, Potassium Level 4.6, Chloride Level 98, Carbon Dioxide Level 35H, Anion Gap 5, Blood Urea Nitrogen 22H, Creatinine 0.7#, Estimat Glomerular Filtration Rate > 60, Glucose Level 124H, Calcium Level 9.2 Height (Feet): 5 Height (Inches): 5.00 Weight (Pounds): 308 General Appearance: no apparent distress EENT: other - Intubated on ventilator Cardiovascular: tachycardia Respiratory/Chest: decreased breath sounds Abdomen: distended Rigo Tyler MD Jun 28, 2020 08:53
[2020-06-28] MEDS: Docusate 100mg/10ml Liq GT SCH ×2 (09:00→19:57)
--- NOTE | 2020-06-28 09:00 | NUR ---
NURSE NOTES: Dr Tyler at bedside assessing pt. Updated him on pt's current condition.
[2020-06-28] MEDS: Vitamin D 1000 units Tab GT SCH (09:27)
[2020-06-28] MEDS: Pantoprazole Inj IVP SCH ×2 (09:28→19:57)
[2020-06-28] MEDS: Enoxaparin 40mg Inj SUBQ SCH (09:31)
--- NOTE | 2020-06-28 09:34 | General Progress Note ---
Subjective Constitutional: Reports: weakness Allergies: Coded Allergies: No Known Allergies (Unverified , 05/28/20) All Systems: reviewed and negative except above Subjective intubated sedated ng in icu Objective Last 24 Hour Vital Signs Date Time Temp Pulse Resp B/P (MAP) Pulse Ox O2 Delivery O2 Flow Rate FiO2 06/28/20 09:00 93 16 91/62 (72) 98 06/28/20 08:30 94 15 90/63 (72) 97 06/28/20 08:00 80 06/28/20 08:00 98.6 96 15 92/63 (73) 98 06/28/20 07:00 22 Mechanical Ventilator 80 06/28/20 07:00 103 14 99/70 (80) 93 06/28/20 06:40 86 20 06/28/20 06:30 105 14 102/57 (72) 94 06/28/20 06:15 106 16 113/68 (83) 90 06/28/20 06:00 99.6 106 17 100/65 (77) 90 06/28/20 05:45 108 17 107/59 (75) 89 06/28/20 05:30 107 17 100/68 (79) 89 06/28/20 05:15 106 17 103/62 (76) 91 06/28/20 05:00 106 18 104/62 (76) 93 06/28/20 04:45 106 21 111/70 (84) 94 06/28/20 04:35 100.4 06/28/20 04:30 111 24 98 06/28/20 04:15 114 27 124/60 (81) 94 06/28/20 04:00 80 06/28/20 04:00 Mechanical Ventilator Mechanical Ventilator 06/28/20 04:00 100.6 111 24 124/70 (88) 95 06/28/20 03:45 108 25 109/63 (78) 98 06/28/20 03:34 112 25 80 06/28/20 03:30 107 20 103/64 (77) 100 06/28/20 03:15 111 24 116/64 (81) 100 06/28/20 03:02 68 06/28/20 03:00 113 24 127/69 (88) 98 06/28/20 02:45 113 27 125/71 (89) 97 06/28/20 02:30 118 25 125/65 (85) 95 06/28/20 02:15 99.6 116 30 120/61 (80) 98 06/28/20 02:00 122 29 122/70 (87) 92 06/28/20 02:00 30 Mechanical Ventilator 70 06/28/20 02:00 30 122/70 Mechanical Ventilator 70 06/28/20 01:45 122 21 118/73 (88) 92 06/28/20 01:30 122 27 120/74 (89) 93 06/28/20 01:15 112 20 118/77 (91) 97 06/28/20 01:06 113 21 122/82 (95) 97 06/28/20 01:00 32 122/82 Mechanical Ventilator 70 06/28/20 01:00 108 19 77/43 (54) 100 06/28/20 00:45 117 21 107/68 (81) 92 06/28/20 00:30 107 22 99/67 (78) 98 06/28/20 00:15 111 23 102/66 (78) 95 06/28/20 00:00 97.8 103 18 113/60 (77) 99 06/28/20 00:00 28 Mechanical Ventilator 70 06/28/20 00:00 19 102/66 Mechanical Ventilator 70 06/28/20 00:00 70 06/28/20 00:00 Mechanical Ventilator Mechanical Ventilator 06/27/20 23:30 100 17 109/63 (78) 94 06/27/20 23:25 108 17 100 06/27/20 23:15 100 23 110/67 (81) 88 06/27/20 23:13 99 06/27/20 23:00 101 21 103/63 (76) 85 06/27/20 23:00 30 Mechanical Ventilator 70 06/27/20 23:00 30 106/60 Mechanical Ventilator 70 06/27/20 22:45 101 15 103/66 (78) 84 06/27/20 22:30 101 15 97/62 (74) 88 06/27/20 22:15 102 16 106/60 (75) 90 06/27/20 22:00 100 13 103/66 (78) 96 06/27/20 22:00 30 Mechanical Ventilator 70 06/27/20 22:00 28 110/67 Mechanical Ventilator 70 06/27/20 21:45 102 14 103/58 (73) 96 06/27/20 21:30 99.1 104 13 104/62 (76) 96 06/27/20 21:15 106 14 110/56 (74) 94 06/27/20 21:00 32 Mechanical Ventilator 70 06/27/20 21:00 28 110/56 Mechanical Ventilator 70 06/27/20 21:00 108 14 106/61 (76) 95 06/27/20 20:45 111 15 104/59 (74) 94 06/27/20 20:30 113 15 109/61 (77) 94 06/27/20 20:15 114 15 103/60 (74) 96 06/27/20 20:00 Mechanical Ventilator Mechanical Ventilator 06/27/20 20:00 99.1 115 14 107/63 (78) 98 06/27/20 20:00 32 Mechanical Ventilator 70 06/27/20 20:00 30 Mechanical Ventilator 70 06/27/20 20:00 15 103/60 Mechanical Ventilator 70 06/27/20 19:45 119 18 99/58 (72) 90 06/27/20 19:34 120 06/27/20 19:33 117 16 80 06/27/20 19:30 102.1 06/27/20 19:30 121 19 98/61 (73) 90 06/27/20 19:15 124 19 99/60 (73) 91 06/27/20 19:00 125 20 99/53 (68) 91 06/27/20 19:00 18 Mechanical Ventilator 70 06/27/20 19:00 18 99/60 Mechanical Ventilator 70 06/27/20 18:00 125 21 98/59 (72) 92 06/27/20 18:00 21 Mechanical Ventilator 80 06/27/20 18:00 21 98/59 Mechanical Ventilator 80 06/27/20 17:00 100.1 125 19 99/63 (75) 92 06/27/20 17:00 19 Mechanical Ventilator 80 06/27/20 17:00 19 99/63 Mechanical Ventilator 80 06/27/20 16:00 100.1 125 20 103/64 (77) 92 06/27/20 16:00 Mechanical Ventilator Mechanical Ventilator 06/27/20 16:00 80 06/27/20 16:00 124 21 102/62 (75) 92 06/27/20 16:00 101 06/27/20 16:00 20 Mechanical Ventilator 80 06/27/20 16:00 19 99/63 Mechanical Ventilator 80 06/27/20 15:37 20 Mechanical Ventilator 80 06/27/20 15:21 121 18 90 06/27/20 15:00 121 17 104/57 (73) 96 06/27/20 15:00 18 104/57 Mechanical Ventilator 80 06/27/20 15:00 17 Mechanical Ventilator 80 06/27/20 14:44 21 105/59 Mechanical Ventilator 80 06/27/20 14:00 121 19 103/58 (73) 96 06/27/20 14:00 17 110/58 Mechanical Ventilator 80 06/27/20 14:00 17 Mechanical Ventilator 80 06/27/20 13:00 80 06/27/20 13:00 20 116/69 Mechanical Ventilator 80 06/27/20 13:00 17 Mechanical Ventilator 80 06/27/20 13:00 121 18 110/58 (75) 96 06/27/20 12:55 17 Mechanical Ventilator 80 06/27/20 12:30 115 18 112/56 (74) 100 06/27/20 12:00 90 06/27/20 12:00 115 06/27/20 12:00 17 102/58 Mechanical Ventilator 90 06/27/20 12:00 17 Mechanical Ventilator 90 06/27/20 12:00 Mechanical Ventilator Mechanical Ventilator 06/27/20 12:00 99.5 115 17 112/55 (74) 100 06/27/20 11:19 115 17 90 06/27/20 11:00 16 101/62 Mechanical Ventilator 90 06/27/20 11:00 16 Mechanical Ventilator 90 06/27/20 11:00 110 16 101/62 (75) 100 06/27/20 10:00 107 18 111/65 (80) 100 06/27/20 10:00 16 111/65 Mechanical Ventilator 90 06/27/20 10:00 16 Mechanical Ventilator 90 Intake and Output 06/27/20 06/28/20 19:00 07:00 Intake Total 1080 ml 820 ml Output Total 1105 ml 255 ml Balance -25 ml 565 ml Free Water 250 ml IV Total 1080 ml 570 ml Output Urine Total 1055 ml 255 ml Stool Total 50 ml 0 ml # Bowel Movements 3 Laboratory Tests 06/27/20 17:42: POC Whole Blood Glucose 113H 06/28/20 02:50: White Blood Count 12.3#H, Red Blood Count 3.42L, Hemoglobin 9.7L, Hematocrit 32.0L, Mean Corpuscular Volume 94, Mean Corpuscular Hemoglobin 28.5, Mean Corpuscular Hemoglobin Concent 30.4L, Red Cell Distribution Width 16.7H, Platelet Count 253, Mean Platelet Volume 8.7, Neutrophils (%) (Auto) 79.0H, Lymphocytes (%) (Auto) 14.0L, Monocytes (%) (Auto) 2.4, Eosinophils (%) (Auto) 3.8H, Basophils (%) (Auto) 0.7, Sodium Level 137, Potassium Level 4.6, Chloride Level 98, Carbon Dioxide Level 35H, Anion Gap 5, Blood Urea Nitrogen 22H, Creatinine 0.7#, Estimat Glomerular Filtration Rate > 60, Glucose Level 124H, Calcium Level 9.2 Height (Feet): 5 Height (Inches): 5.00 Weight (Pounds): 308 General Appearance: lethargic EENT: normal ENT inspection Neck: normal alignment Cardiovascular: normal peripheral pulses, normal rate, regular rhythm Respiratory/Chest: chest wall non-tender, lungs clear, normal breath sounds Abdomen: normal bowel sounds, non tender, soft Extremities: normal inspection Edema: 1+ Arm (L), 1+ Arm (R), 1+ Leg (L), 1+ Leg (R), 1+ Pedal (L), 1+ Pedal (R), 1+ Generalized Edema: trace edema Neurologic: motor weakness Skin: normal pigmentation, warm/dry Assessment/Plan Problem List: (1) Hypoxia ICD Codes: R09.02 - Hypoxemia SNOMED: 105431705 (2) Respiratory failure ICD Codes: J96.90 - Respiratory failure, unspecified, unspecified whether with hypoxia or hypercapnia SNOMED: 312541088 (3) Respiratory distress ICD Codes: R06.03 - Acute respiratory distress; J12.82 - Pneumonia due to coronavirus disease 2019 SNOMED: 536188341 (4) Pneumonia due to COVID-19 virus ICD Codes: U07.1 - COVID-19; J12.82 - Pneumonia due to coronavirus disease 2019 SNOMED: 502917841309237568 Status: unchanged Assessment/Plan: vent abx id pulm f/u cbc bmp am Tank Del Cid DO Jun 28, 2020 09:34
--- NOTE | 2020-06-28 10:00 | NUR ---
NURSE NOTES: New COVID PCR swabbed, collected, and picked up by lab personnel. Previous specimen was not tested d/t lab error, as told by lab
--- NOTE | 2020-06-28 11:19 | Infectious Diseases Prog Note ---
Assessment/Plan Assessment/Plan antibiotics : none A 1. covid 19 pneumonia on 80 % Fi O2 with 100 % saturation s/p remdesivir s/p solumedrol 2. respiratory failure 3. serratia pneumonia s/p rx P 1. continue off antibiotics 2. continue isolation Subjective ROS Limited/Unobtainable: Yes Allergies: Coded Allergies: No Known Allergies (Unverified , 05/28/20) Objective Last 24 Hour Vital Signs Date Time Temp Pulse Resp B/P (MAP) Pulse Ox O2 Delivery O2 Flow Rate FiO2 06/28/20 11:00 93 16 90/67 (75) 06/28/20 10:00 94 18 99/66 (77) 100 06/28/20 09:00 93 16 91/62 (72) 98 06/28/20 08:30 94 15 90/63 (72) 97 06/28/20 08:00 80 06/28/20 08:00 98.6 96 15 92/63 (73) 98 06/28/20 08:00 Mechanical Ventilator Mechanical Ventilator 06/28/20 07:10 95 15 80 06/28/20 07:00 22 Mechanical Ventilator 80 06/28/20 07:00 103 14 99/70 (80) 93 06/28/20 06:40 86 20 06/28/20 06:30 105 14 102/57 (72) 94 06/28/20 06:15 106 16 113/68 (83) 90 06/28/20 06:00 99.6 106 17 100/65 (77) 90 06/28/20 05:45 108 17 107/59 (75) 89 06/28/20 05:30 107 17 100/68 (79) 89 06/28/20 05:15 106 17 103/62 (76) 91 06/28/20 05:00 106 18 104/62 (76) 93 06/28/20 04:45 106 21 111/70 (84) 94 06/28/20 04:35 100.4 06/28/20 04:30 111 24 98 06/28/20 04:15 114 27 124/60 (81) 94 06/28/20 04:00 80 06/28/20 04:00 Mechanical Ventilator Mechanical Ventilator 06/28/20 04:00 100.6 111 24 124/70 (88) 95 06/28/20 03:45 108 25 109/63 (78) 98 06/28/20 03:34 112 25 80 06/28/20 03:30 107 20 103/64 (77) 100 06/28/20 03:15 111 24 116/64 (81) 100 06/28/20 03:02 68 06/28/20 03:00 113 24 127/69 (88) 98 06/28/20 02:45 113 27 125/71 (89) 97 06/28/20 02:30 118 25 125/65 (85) 95 06/28/20 02:15 99.6 116 30 120/61 (80) 98 06/28/20 02:00 122 29 122/70 (87) 92 06/28/20 02:00 30 Mechanical Ventilator 70 06/28/20 02:00 30 122/70 Mechanical Ventilator 70 06/28/20 01:45 122 21 118/73 (88) 92 06/28/20 01:30 122 27 120/74 (89) 93 06/28/20 01:15 112 20 118/77 (91) 97 06/28/20 01:06 113 21 122/82 (95) 97 06/28/20 01:00 32 122/82 Mechanical Ventilator 70 06/28/20 01:00 108 19 77/43 (54) 100 06/28/20 00:45 117 21 107/68 (81) 92 06/28/20 00:30 107 22 99/67 (78) 98 06/28/20 00:15 111 23 102/66 (78) 95 06/28/20 00:00 97.8 103 18 113/60 (77) 99 06/28/20 00:00 28 Mechanical Ventilator 70 06/28/20 00:00 19 102/66 Mechanical Ventilator 70 06/28/20 00:00 70 06/28/20 00:00 Mechanical Ventilator Mechanical Ventilator 06/27/20 23:30 100 17 109/63 (78) 94 06/27/20 23:25 108 17 100 06/27/20 23:15 100 23 110/67 (81) 88 06/27/20 23:13 99 06/27/20 23:00 101 21 103/63 (76) 85 06/27/20 23:00 30 Mechanical Ventilator 70 06/27/20 23:00 30 106/60 Mechanical Ventilator 70 2/4/21 22:45 101 15 103/66 (78) 84 06/27/20 22:30 101 15 97/62 (74) 88 06/27/20 22:15 102 16 106/60 (75) 90 06/27/20 22:00 100 13 103/66 (78) 96 06/27/20 22:00 30 Mechanical Ventilator 70 06/27/20 22:00 28 110/67 Mechanical Ventilator 70 06/27/20 21:45 102 14 103/58 (73) 96 06/27/20 21:30 99.1 104 13 104/62 (76) 96 06/27/20 21:15 106 14 110/56 (74) 94 06/27/20 21:00 32 Mechanical Ventilator 70 06/27/20 21:00 28 110/56 Mechanical Ventilator 70 06/27/20 21:00 108 14 106/61 (76) 95 06/27/20 20:45 111 15 104/59 (74) 94 06/27/20 20:30 113 15 109/61 (77) 94 06/27/20 20:15 114 15 103/60 (74) 96 06/27/20 20:00 Mechanical Ventilator Mechanical Ventilator 06/27/20 20:00 99.1 115 14 107/63 (78) 98 06/27/20 20:00 32 Mechanical Ventilator 70 06/27/20 20:00 30 Mechanical Ventilator 70 06/27/20 20:00 15 103/60 Mechanical Ventilator 70 06/27/20 19:45 119 18 99/58 (72) 90 06/27/20 19:34 120 06/27/20 19:33 117 16 80 06/27/20 19:30 102.1 06/27/20 19:30 121 19 98/61 (73) 90 06/27/20 19:15 124 19 99/60 (73) 91 06/27/20 19:00 125 20 99/53 (68) 91 06/27/20 19:00 18 Mechanical Ventilator 70 06/27/20 19:00 18 99/60 Mechanical Ventilator 70 06/27/20 18:00 125 21 98/59 (72) 92 06/27/20 18:00 21 Mechanical Ventilator 80 06/27/20 18:00 21 98/59 Mechanical Ventilator 80 06/27/20 17:00 100.1 125 19 99/63 (75) 92 06/27/20 17:00 19 Mechanical Ventilator 80 06/27/20 17:00 19 99/63 Mechanical Ventilator 80 06/27/20 16:00 100.1 125 20 103/64 (77) 92 06/27/20 16:00 Mechanical Ventilator Mechanical Ventilator 06/27/20 16:00 80 06/27/20 16:00 124 21 102/62 (75) 92 06/27/20 16:00 101 06/27/20 16:00 20 Mechanical Ventilator 80 06/27/20 16:00 19 99/63 Mechanical Ventilator 80 06/27/20 15:37 20 Mechanical Ventilator 80 06/27/20 15:21 121 18 90 06/27/20 15:00 121 17 104/57 (73) 96 06/27/20 15:00 18 104/57 Mechanical Ventilator 80 06/27/20 15:00 17 Mechanical Ventilator 80 06/27/20 14:44 21 105/59 Mechanical Ventilator 80 06/27/20 14:00 121 19 103/58 (73) 96 06/27/20 14:00 17 110/58 Mechanical Ventilator 80 06/27/20 14:00 17 Mechanical Ventilator 80 06/27/20 13:00 80 06/27/20 13:00 20 116/69 Mechanical Ventilator 80 06/27/20 13:00 17 Mechanical Ventilator 80 06/27/20 13:00 121 18 110/58 (75) 96 06/27/20 12:55 17 Mechanical Ventilator 80 06/27/20 12:30 115 18 112/56 (74) 100 06/27/20 12:00 90 06/27/20 12:00 115 06/27/20 12:00 17 102/58 Mechanical Ventilator 90 06/27/20 12:00 17 Mechanical Ventilator 90 06/27/20 12:00 Mechanical Ventilator Mechanical Ventilator 06/27/20 12:00 99.5 115 17 112/55 (74) 100 Height (Feet): 5 Height (Inches): 5.00 Weight (Pounds): 308 Laboratory Tests Test 06/27/20 17:42 06/28/20 02:50 POC Whole Blood Glucose 113 MG/DL (74-106) H White Blood Count 12.3 K/UL (4.8-10.8) #H Red Blood Count 3.42 M/UL (4.20-5.40) L Hemoglobin 9.7 G/DL (12.0-16.0) L Hematocrit 32.0 % (37.0-47.0) L Mean Corpuscular Volume 94 FL (80-99) Mean Corpuscular Hemoglobin 28.5 PG (27.0-31.0) Mean Corpuscular Hemoglobin Concent 30.4 G/DL (32.0-36.0) L Red Cell Distribution Width 16.7 % (11.6-14.8) H Platelet Count 253 K/UL (150-450) Mean Platelet Volume 8.7 FL (6.5-10.1) Neutrophils (%) (Auto) 79.0 % (45.0-75.0) H Lymphocytes (%) (Auto) 14.0 % (20.0-45.0) L Monocytes (%) (Auto) 2.4 % (1.0-10.0) Eosinophils (%) (Auto) 3.8 % (0.0-3.0) H Basophils (%) (Auto) 0.7 % (0.0-2.0) Sodium Level 137 MMOL/L (136-145) Potassium Level 4.6 MMOL/L (3.5-5.1) Chloride Level 98 MMOL/L (98-107) Carbon Dioxide Level 35 MMOL/L (21-32) H Anion Gap 5 mmol/L (5-15) Blood Urea Nitrogen 22 mg/dL (7-18) H Creatinine 0.7 MG/DL (0.55-1.30) # Estimat Glomerular Filtration Rate > 60 mL/min (>60) Glucose Level 124 MG/DL (74-106) H Calcium Level 9.2 MG/DL (8.5-10.1) Current Medications Medications (Trade) Dose Ordered Sig/Zelda Route PRN Reason Start Time Stop Time Status Last Admin Dose Admin Acetaminophen (Tylenol) 650 mg Q4H PRN NG Temp >100.5 05/31/20 21:45 06/30/20 21:44 06/28/20 04:02 Acetaminophen (Tylenol) 650 mg Q6H PRN NG Mild Pain (Pain Scale 1-3) 06/06/20 18:00 07/06/20 17:59 06/13/20 23:10 Chlorhexidine Gluconate (Inna-Hex 2%) 1 applic DAILY@1999 TOPIC 05/30/20 20:00 08/28/20 19:59 06/27/20 20:11 Dextrose (Dextrose 50%) 25 ml Q30M PRN IV Hypoglycemia 06/05/20 10:45 09/03/20 10:44 Dextrose (Dextrose 50%) 50 ml Q30M PRN IV Hypoglycemia 06/05/20 10:45 09/03/20 10:44 Dextrose/Sodium Chloride 1,000 ml @ 50 mls/hr Q20H IV 06/24/20 16:30 07/24/20 16:29 06/28/20 03:03 Docusate Sodium (Colace) 100 mg Q12HR GT 06/07/20 21:00 07/07/20 20:59 06/25/20 20:44 Enoxaparin Sodium (Lovenox) 40 mg DAILY SUBQ 05/30/20 10:00 08/28/20 09:59 06/28/20 09:31 Fentanyl Citrate 250 ml @ 0 mls/hr Q24H PRN IV . 06/26/20 22:00 06/28/20 21:59 06/27/20 14:44 Furosemide (Lasix) 40 mg DAILY IV 06/22/20 09:00 07/22/20 08:59 06/28/20 09:28 Insulin Aspart (NovoLOG) EVERY 6 HOURS SUBQ 06/07/20 00:00 09/03/20 11:59 06/24/20 18:00 Midazolam HCl 100 mg/Sodium Chloride 200 ml @ 0 mls/hr Q24H PRN IV DIRECTED 06/27/20 15:11 06/29/20 15:10 06/28/20 07:00 Midodrine (Pro-Amatine) 10 mg Q8HR ORAL 06/14/20 14:00 09/12/20 13:59 06/28/20 06:00 Pantoprazole (Protonix) 40 mg Q12HR IVP 06/13/20 21:00 07/03/20 08:59 06/28/20 09:28 Polyethylene Glycol (Miralax) 17 gm BEDTIME GT 06/07/20 21:00 07/07/20 20:59 06/25/20 20:44 Vitamin D (Vitamin D) 5,000 unit DAILY GT 06/28/20 09:00 07/28/20 08:59 06/28/20 09:27 Fili Mcelroy MD Jun 28, 2020 11:19
--- NOTE | 2020-06-28 12:00 | NUR ---
NURSE NOTES: Pt turned and repositioned. Oral care done. Pt remains sedated RASS -2, on Fentanyl 200mcg/hr and Versed 15mg/hr
[2020-06-28] MEDS: fentaNYL 2500mcg/NS 250ml 250 ML IV PRN (13:52)
--- NOTE | 2020-06-28 14:00 | NUR ---
NURSE NOTES: Pt remains sedated RASS -2. On cooling blanket to prevent spike in temp. Currently Afebrile. No distress noted.
--- NOTE | 2020-06-28 16:00 | NUR ---
NURSE NOTES: Pt fully cleaned and linens changed. No leakage noted from around rectal tube. Pt turned and repositioned for comfort. Oral care done.
--- NOTE | 2020-06-28 18:00 | NUR ---
NURSE NOTES: BS 116mg/dL. Pt appears comfortable. Remains sedated, RASS -2. On fentanyl @ 200mcg/hr and Versed @ 15mg/hr. Ventilator settings remain the same.
--- NOTE | 2020-06-28 19:13 | NUR ---
NURSE HAND-OFF REPORT: Latest Vital Signs: Temperature 98.7 , Pulse 112 , B/P 106 /63 , Respiratory Rate 24 , O2 SAT 100 , Mechanical Ventilator, FiO2 80% . Vital Sign Comment: EKG Rhythm: Sinus Tachycardia Rhythm change?: N MD Notified?: MD Response: Latest Meyers Fall Score: 70 Fall Risk: High Risk Safety Measures: Call light Within Reach, Bed Alarm Zone 1, Side Rails Side Rails x2, Bed position Low and Locked. Fall Precautions: Yellow Socks Report given to RAKEL Brenner.
--- NOTE | 2020-06-28 19:15 | NUR ---
Report received from RAKEL Hudson. Assumed care of patient.
[2020-06-28] MEDS ORDERED: Tubing IV Secondary IV ONE ×2 (19:42→19:45)
[2020-06-28] MEDS ORDERED: D5 1/2NS 1000ml IV ONE (19:45)
[2020-06-28] MEDS ORDERED: NS 275ml ONE (19:45)
[2020-06-28] MEDS: Dyna-Hex 2% Top Sol 2oz TOPIC SCH (19:56)
[2020-06-28] MEDS: Miralax 17gm pkt GT SCH (19:57)
--- NOTE | 2020-06-28 20:15 | NUR ---
Patient assessed, repositioned, CHG bath given, linen changed, EKG leads Changed, Oral care done on patient with slight pink secretions noted in mouth. Administeed miralax and colace as ordered due to inability to remove the FMS as the Bed is broken and there is no lift on the unit to provide assistance with turns and lifting patient for cleansing. Due to Broken bed, it is unsafe for staff to frequently provide karen care/bowel clean up without assistive devices due to morbid obesity of patient. VSS, will continue to monitor patient.
--- NOTE | 2020-06-28 22:00 | NUR ---
Patient continues to be stable. Turned and repositioned, provided oral care to patient. Will continue to monitor.
[2020-06-29] VITALS (71 sets, daily range): BP systolic 87–114; BP diastolic 52–72
--- NOTE | 2020-06-29 00:42 | NUR ---
Noticed that Fentanyl gtt fell off the JUL. I re-ordered using protocol. This is a continuation of the orders for sedation. will pass along to Day Shift RN to check with Elijah to ensure he would still like the gtt continued. If he does not, then the day RN can DC as per provider recommendation. patient remains stable at a EVELYN of -2. Will continue to monitor the patient. Addendum: 06/29/20 at 0044 by CHETAN CRUZ RN Oral care provided and patient repositioned.
--- NOTE | 2020-06-29 02:00 | NUR ---
Oral care provided, patient repositioned, VSS will continue to monitor patient.
--- NOTE | 2020-06-29 04:00 | NUR ---
Patient remains stable, oral care provided, will continue to monitor patient.
[2020-06-29] MEDS: fentaNYL 2500mcg/NS 250ml 250 ML IV SCH ×2 (04:12→22:59)
[2020-06-29 05:43] LABS: BASOPHILS % (AUTO) 0.7 % (0.0-2.0); EOSINOPHILS % (AUTO) 5.7 % (0.0-3.0); HEMATOCRIT 31.2 % (37.0-47.0); HEMOGLOBIN 9.5 G/DL (12.0-16.0); LYMPHOCYTES % (AUTO) 25.8 % (20.0-45.0); MEAN CORPUSCULAR VOLUME 94 FL (80-99); MONOCYTES % (AUTO) 4.6 % (1.0-10.0); NEUTROPHILS % (AUTO) 63.2 % (45.0-75.0); PLATELET COUNT 229 K/UL (150-450); RED BLOOD COUNT 3.32 M/UL (4.20-5.40); RED CELL DISTRIBUTION WIDTH 16.7 % (11.6-14.8); WHITE BLOOD COUNT 10.3 K/UL (4.8-10.8)
[2020-06-29] MEDS: NovoLOG Insulin Flexpen SUBQ SCH ×5 (06:00→23:46)
[2020-06-29] MEDS: Midodrine 10mg tab ORAL SCH ×3 (06:00→20:32)
--- NOTE | 2020-06-29 06:00 | NUR ---
Oral care provided, patient repositioned, and VSS. The IV spreadsheet will not let me chart the versed gtt as of 4am. It says the gtt should be complete, however, there is volume remaining. It will be time for a new bag after shift change approximately around 8am. Rate was unchanged at 10mg/hr for the 0400, 0500, and 0600 hours. Will continue to monitor patient.
[2020-06-29 06:12] LABS: ANION GAP 2 mmol/L (5-15); BLOOD UREA NITROGEN 13 mg/dL (7-18); CALCIUM 8.6 MG/DL (8.5-10.1); CARBON DIOXIDE 37 MMOL/L (21-32); CHLORIDE 99 MMOL/L (98-107); CREATININE 0.5 MG/DL (0.55-1.30); POTASSIUM 4.6 MMOL/L (3.5-5.1); SODIUM 138 MMOL/L (136-145)
--- NOTE | 2020-06-29 07:02 | NUR ---
Report given to RAKEL Hudson. Handed off care of patient.
--- NOTE | 2020-06-29 07:30 | NUR ---
NURSE NOTES: Report received from Elidia Gutierrez RN. Pt sedated RASS -2. Pt is orally intubated ETT 7.0, 23cm @ the lip line. Ventilator settings: AC 15, TV 600, PS 10, Fio2 80%, Peep10; O2sat reads 97% on personnel monitor. SR on the monitor. Pt has an left nares NGT- currently NPO d/t bed not operating properly and not being able to elevate HOB to prevent aspiration during feeding. Lennon catheter in place, draining yellow urine. Rectal tube with liquid brown stool in collection bag noted. Skin warm and dry; upper extremities edematous. LINDA PICC line intact running Fentanyl at 100 mcg/hr, Versed 10 mg/hr, and D5 1/2 NS at 50 ml/hr. Pt is on a cooling blanket. Bed locked and in lowest position. will resume plan of care.
[2020-06-29] MEDS: Midazolam HCl 50mg/10ml vial 100 MG in NS 180 ML IV PRN ×3 (07:43→22:59)
--- NOTE | 2020-06-29 09:00 | NUR ---
NURSE NOTES: FiO2 decreased to 70%. Pt tolerating ventilator change well. 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
[2020-06-29] MEDS: Pantoprazole Inj IVP SCH ×2 (09:21→20:32)
[2020-06-29] MEDS: Docusate 100mg/10ml Liq GT SCH ×2 (09:21→20:32)
[2020-06-29] MEDS: Vitamin D 1000 units Tab GT SCH (09:21)
[2020-06-29] MEDS: Enoxaparin 40mg Inj SUBQ SCH (09:22)
--- NOTE | 2020-06-29 09:40 | General Progress Note ---
Subjective Constitutional: Reports: weakness Allergies: Coded Allergies: No Known Allergies (Unverified , 05/28/20) All Systems: reviewed and negative except above Subjective intubated sedated ng in icu Objective Last 24 Hour Vital Signs Date Time Temp Pulse Resp B/P (MAP) Pulse Ox O2 Delivery O2 Flow Rate FiO2 06/29/20 09:30 102 21 98/61 (73) 100 06/29/20 09:00 101 19 109/68 (82) 98 06/29/20 09:00 16 109/68 Mechanical Ventilator 70 06/29/20 09:00 16 Mechanical Ventilator 70 06/29/20 09:00 70 06/29/20 08:30 101 17 105/67 (80) 100 06/29/20 08:00 80 06/29/20 08:00 98.9 100 18 99/65 (76) 100 06/29/20 08:00 Mechanical Ventilator Mechanical Ventilator 06/29/20 07:43 17 Mechanical Ventilator 80 06/29/20 07:30 112 32 109/70 (83) 94 06/29/20 07:00 103 23 98/66 (77) 99 06/29/20 06:30 103 18 105/64 (78) 99 06/29/20 06:15 105 18 105/63 (77) 98 06/29/20 06:00 86 20 06/29/20 06:00 16 91/63 Mechanical Ventilator 80 06/29/20 06:00 99.0 105 19 91/63 (72) 100 06/29/20 05:45 106 20 92/62 (72) 100 06/29/20 05:30 105 19 96/65 (75) 100 06/29/20 05:15 106 23 105/63 (77) 95 06/29/20 05:07 106 18 80 06/29/20 05:00 105 20 108/67 (81) 94 06/29/20 05:00 16 108/67 Mechanical Ventilator 80 06/29/20 04:45 105 20 96/62 (73) 89 06/29/20 04:30 103 21 97/71 (80) 95 06/29/20 04:15 103 18 104/60 (75) 96 06/29/20 04:12 18 108/59 Mechanical Ventilator 80 06/29/20 04:00 98.8 100 20 108/59 (75) 96 06/29/20 04:00 80 06/29/20 04:00 Mechanical Ventilator Mechanical Ventilator 06/29/20 03:45 105 25 109/66 (80) 99 06/29/20 03:30 101 17 105/62 (76) 96 06/29/20 03:22 101 28 80 06/29/20 03:21 103 06/29/20 03:15 102 18 97/67 (77) 96 06/29/20 03:00 16 Mechanical Ventilator 80 06/29/20 03:00 17 108/59 Mechanical Ventilator 80 06/29/20 03:00 101 18 104/65 (78) 94 06/29/20 02:45 102 18 96/64 (75) 94 06/29/20 02:30 104 17 107/59 (75) 94 06/29/20 02:15 98 16 105/56 (72) 96 06/29/20 02:00 16 80 06/29/20 02:00 16 104/65 Mechanical Ventilator 80 06/29/20 02:00 103 18 104/63 (77) 91 06/29/20 01:45 103 17 98/62 (74) 92 06/29/20 01:30 100 16 103/62 (76) 96 06/29/20 01:20 20 Mechanical Ventilator 80 06/29/20 01:20 20 89/57 Mechanical Ventilator 80 06/29/20 01:15 100 16 89/58 (68) 98 06/29/20 01:14 100 17 80 06/29/20 01:00 99 15 100 06/29/20 01:00 15 Mechanical Ventilator 80 06/29/20 01:00 15 88/57 Mechanical Ventilator 80 06/29/20 00:45 100 16 87/54 (65) 100 06/29/20 00:30 101 16 92/52 (65) 100 06/29/20 00:15 101 16 91/57 (68) 98 06/29/20 00:01 102 16 94/55 (68) 100 06/29/20 00:00 99.0 102 15 87/59 (68) 100 06/29/20 00:00 17 Mechanical Ventilator 80 06/29/20 00:00 17 92/52 Mechanical Ventilator 80 06/29/20 00:00 Mechanical Ventilator Mechanical Ventilator 06/28/20 23:45 105 15 91/58 (69) 100 06/28/20 23:30 104 22 80 06/28/20 23:30 104 17 95/62 (73) 100 06/28/20 23:15 103 16 92/58 (69) 100 06/28/20 23:09 104 06/28/20 23:00 104 17 89/57 (68) 100 06/28/20 23:00 18 Mechanical Ventilator 80 06/28/20 23:00 17 102/65 Mechanical Ventilator 80 06/28/20 22:45 104 16 90/65 (73) 100 06/28/20 22:30 105 18 95/58 (70) 100 06/28/20 22:15 105 17 97/58 (71) 06/28/20 22:00 106 17 91/55 (67) 06/28/20 22:00 17 Mechanical Ventilator 80 06/28/20 22:00 17 98/60 Mechanical Ventilator 80 06/28/20 21:45 106 17 87/62 (70) 06/28/20 21:30 107 17 91/54 (66) 100 06/28/20 21:15 107 17 96/60 (72) 100 06/28/20 21:00 18 Mechanical Ventilator 80 06/28/20 21:00 17 95/62 Mechanical Ventilator 80 06/28/20 21:00 110 19 96/59 (71) 100 06/28/20 20:45 113 19 100/60 (73) 100 06/28/20 20:30 112 24 80 06/28/20 20:30 113 23 108/59 (75) 100 06/28/20 20:15 110 20 105/65 (78) 99 06/28/20 20:00 80 06/28/20 20:00 19 Mechanical Ventilator 80 06/28/20 20:00 18 106/61 Mechanical Ventilator 80 06/28/20 20:00 99.3 112 22 106/61 (76) 98 06/28/20 20:00 Mechanical Ventilator Mechanical Ventilator 06/28/20 19:59 28 Mechanical Ventilator 80 06/28/20 19:45 111 19 103/60 (74) 100 06/28/20 19:45 111 06/28/20 19:30 112 21 102/58 (73) 100 06/28/20 19:15 114 21 105/62 (76) 98 06/28/20 19:06 112 24 80 06/28/20 19:00 110 17 106/63 (77) 100 06/28/20 19:00 15 Mechanical Ventilator 80 06/28/20 19:00 15 106/63 Mechanical Ventilator 80 06/28/20 19:00 110 17 106/63 (77) 100 06/28/20 18:00 15 Mechanical Ventilator 80 06/28/20 18:00 16 102/61 Mechanical Ventilator 80 06/28/20 18:00 109 21 102/61 (75) 100 06/28/20 17:30 106 22 102/67 (79) 100 06/28/20 17:00 15 Mechanical Ventilator 80 06/28/20 17:00 15 87/63 Mechanical Ventilator 80 06/28/20 17:00 105 19 87/63 (71) 98 06/28/20 16:30 107 19 97/64 (75) 98 06/28/20 16:00 Mechanical Ventilator Mechanical Ventilator 06/28/20 16:00 80 06/28/20 16:00 15 Mechanical Ventilator 80 06/28/20 16:00 15 106/67 Mechanical Ventilator 80 06/28/20 16:00 106 06/28/20 16:00 98.7 106 18 106/67 (80) 100 06/28/20 15:20 107 17 80 06/28/20 15:00 104 16 102/56 (71) 95 06/28/20 15:00 15 Mechanical Ventilator 80 06/28/20 15:00 15 102/56 Mechanical Ventilator 80 06/28/20 14:30 100 14 107/63 (78) 95 06/28/20 14:00 17 Mechanical Ventilator 80 06/28/20 14:00 17 109/65 Mechanical Ventilator 80 06/28/20 14:00 97 22 106/73 (84) 93 06/28/20 13:52 15 104/64 Mechanical Ventilator 80 06/28/20 13:51 15 Mechanical Ventilator 80 06/28/20 13:30 94 17 98/64 (75) 100 06/28/20 13:00 15 Mechanical Ventilator 80 06/28/20 13:00 16 84/68 Mechanical Ventilator 80 06/28/20 13:00 94 17 88/64 (72) 99 06/28/20 12:00 Mechanical Ventilator Mechanical Ventilator 06/28/20 12:00 97.9 93 15 92/64 (73) 99 06/28/20 12:00 93 06/28/20 12:00 80 06/28/20 12:00 15 Mechanical Ventilator 80 06/28/20 12:00 15 96/64 Mechanical Ventilator 80 06/28/20 11:15 101 19 80 06/28/20 11:00 93 16 90/67 (75) 06/28/20 11:00 15 Mechanical Ventilator 80 06/28/20 11:00 16 88/65 Mechanical Ventilator 80 06/28/20 10:00 94 18 99/66 (77) 100 06/28/20 10:00 15 Mechanical Ventilator 80 06/28/20 10:00 15 99/63 Mechanical Ventilator 80 Intake and Output 06/28/20 06/29/20 19:00 07:00 Intake Total 1399.16 ml 1540 ml Output Total 690 ml 400 ml Balance 709.16 ml 1140 ml Free Water 200 ml 470 ml IV Total 1199.16 ml 1070 ml Output Urine Total 690 ml 400 ml Stool Total 0 ml 0 ml Laboratory Tests 06/28/20 12:25: POC Whole Blood Glucose 105 06/28/20 17:33: POC Whole Blood Glucose 116H 06/29/20 03:45: White Blood Count 10.3, Red Blood Count 3.32L, Hemoglobin 9.5L, Hematocrit 31.2L , Mean Corpuscular Volume 94, Mean Corpuscular Hemoglobin 28.5, Mean Corpuscular Hemoglobin Concent 30.4L, Red Cell Distribution Width 16.7H, Platelet Count 229, Mean Platelet Volume 7.7, Neutrophils (%) (Auto) 63.2, Lymphocytes (%) (Auto) 25.8, Monocytes (%) (Auto) 4.6, Eosinophils (%) (Auto) 5.7H, Basophils (%) (Auto) 0.7, Sodium Level 138, Potassium Level 4.6, Chloride Level 99, Carbon Dioxide Level 37H, Anion Gap 2L, Blood Urea Nitrogen 13, Creatinine 0.5L, E stimat Glomerular Filtration Rate > 60, Glucose Level 107H, Calcium Level 8.6 Height (Feet): 5 Height (Inches): 5.00 Weight (Pounds): 308 General Appearance: lethargic EENT: normal ENT inspection Neck: normal alignment Cardiovascular: normal peripheral pulses, normal rate, regular rhythm Respiratory/Chest: chest wall non-tender, lungs clear, normal breath sounds Abdomen: normal bowel sounds, non tender, soft Extremities: normal inspection Edema: no edema noted Arm (L), no edema noted Arm (R), no edema noted Leg (L), no edema noted Leg (R), no edema noted Pedal (L), no edema noted Pedal (R), no edema noted Generalized Neurologic: motor weakness Skin: normal pigmentation, warm/dry Assessment/Plan Problem List: (1) Hypoxia ICD Codes: R09.02 - Hypoxemia SNOMED: 347221520 (2) Respiratory failure ICD Codes: J96.90 - Respiratory failure, unspecified, unspecified whether with hypoxia or hypercapnia SNOMED: 235057660 (3) Respiratory distress ICD Codes: R06.03 - Acute respiratory distress; J12.82 - Pneumonia due to coronavirus disease 2019 SNOMED: 890094791 (4) Pneumonia due to COVID-19 virus ICD Codes: U07.1 - COVID-19; J12.82 - Pneumonia due to coronavirus disease 2019 SNOMED: 143065369929603003 Status: unchanged Assessment/Plan: vent abx id pulm f/u cbc bmp am Tank Del Cid DO Jun 29, 2020 09:40
--- NOTE | 2020-06-29 10:15 | NUR ---
RD ASSESSMENT & RECOMMENDATIONS SEE CARE ACTIVITY FOR COMPLETE ASSESSMENT DAILY ESTIMATED NEEDS: Needs based on Critical care, obesity 11-14kcal/kg actual body wt (140kg) kcals/kg 9812-5918 total kcals 1.5-2.0g prot/kg IBW (64.5kg) g protein/kg 96-129 g total protein 25-30ml/kg abw (83kg) mL/kg 4497-5742 total fluid mLs NUTRITION DIAGNOSIS: Swallowing difficulty R/T respiratory failure as evidenced by pt orally intubated and sedated, on OGT feeds, held at this time. CURRENT TF: Vital 1.2 goal of 60ml/hr ENTERAL NUTRITION RECOMMENDATIONS: Vital AF 1.2 @ 60ml/hr x 24 hrs to provide 1440ml, 1728kcal, 108g prot, 1168ml free water * As able, restart TF @30ml/hr, advance as tolerated to goal. * TF @ goal meeds 100% est kcal/prot needs * HOB over 30 degrees/ water flush per MD ADDITIONAL RECOMMENDATIONS: * Calibrated bedscale wt * Monitor Propofol rate, need for TF adjustment-> now off * Monitor BGs closely : now improved, on NISS only * Pt w/ rectal tube- DC OR HOLD COLACE and Miralax * F/up w/ bed change and ability to restart TF -> TF held since 06/22 .
--- NOTE | 2020-06-29 11:00 | NUR ---
NURSE NOTES: Family was able to speak to pt with a portable phone on speaker phone. Some eye movement noted when pt heard her family's voice. Pt turned and repositioned.
--- NOTE | 2020-06-29 12:24 | Infectious Diseases Prog Note ---
Assessment/Plan Assessment/Plan A 1. COVID19 pneumonia 2. Hypoxic respiratory failure 3. Morbid obesity 4. DM type with hyperglycemia 5. Thrombocytopenia 6. leukocytosis resolved 7. Serratia pneumonia treated 8. Anemia P 1. Finished remdesivir course 2. Finished steroid course Subjective ROS Limited/Unobtainable: Yes Neurologic: Reports: other - sedated on restraint Allergies: Coded Allergies: No Known Allergies (Unverified , 05/28/20) Objective Last 24 Hour Vital Signs Date Time Temp Pulse Resp B/P (MAP) Pulse Ox O2 Delivery O2 Flow Rate FiO2 06/29/20 12:00 Mechanical Ventilator Mechanical Ventilator 06/29/20 12:00 99.2 101 19 103/60 (74) 100 06/29/20 11:30 105 22 102/71 (81) 94 06/29/20 11:15 101 21 108/69 (82) 93 06/29/20 11:00 106 21 111/68 (82) 100 06/29/20 11:00 16 111/68 Mechanical Ventilator 60 06/29/20 11:00 16 Mechanical Ventilator 60 06/29/20 10:30 101 16 110/72 (85) 100 06/29/20 10:00 104 22 110/66 (81) 94 06/29/20 10:00 16 110/66 Mechanical Ventilator 70 06/29/20 10:00 16 Mechanical Ventilator 70 06/29/20 09:30 102 21 98/61 (73) 100 06/29/20 09:00 101 19 109/68 (82) 98 06/29/20 09:00 16 109/68 Mechanical Ventilator 70 06/29/20 09:00 16 Mechanical Ventilator 70 06/29/20 09:00 70 06/29/20 08:30 101 17 105/67 (80) 100 06/29/20 08:00 80 06/29/20 08:00 98.9 100 18 99/65 (76) 100 06/29/20 08:00 19 99/65 Mechanical Ventilator 80 06/29/20 08:00 19 Mechanical Ventilator 80 06/29/20 08:00 Mechanical Ventilator Mechanical Ventilator 06/29/20 07:43 17 Mechanical Ventilator 80 06/29/20 07:30 112 32 109/70 (83) 94 06/29/20 07:00 103 23 98/66 (77) 99 06/29/20 07:00 24 98/66 Mechanical Ventilator 70 06/29/20 06:30 103 18 105/64 (78) 99 06/29/20 06:15 105 18 105/63 (77) 98 06/29/20 06:00 86 20 06/29/20 06:00 16 91/63 Mechanical Ventilator 80 06/29/20 06:00 99.0 105 19 91/63 (72) 100 06/29/20 05:45 106 20 92/62 (72) 100 06/29/20 05:30 105 19 96/65 (75) 100 06/29/20 05:15 106 23 105/63 (77) 95 06/29/20 05:07 106 18 80 06/29/20 05:00 105 20 108/67 (81) 94 06/29/20 05:00 16 108/67 Mechanical Ventilator 80 06/29/20 04:45 105 20 96/62 (73) 89 06/29/20 04:30 103 21 97/71 (80) 95 06/29/20 04:15 103 18 104/60 (75) 96 06/29/20 04:12 18 108/59 Mechanical Ventilator 80 06/29/20 04:00 98.8 100 20 108/59 (75) 96 06/29/20 04:00 80 06/29/20 04:00 Mechanical Ventilator Mechanical Ventilator 06/29/20 03:45 105 25 109/66 (80) 99 06/29/20 03:30 101 17 105/62 (76) 96 06/29/20 03:22 101 28 80 06/29/20 03:21 103 06/29/20 03:15 102 18 97/67 (77) 96 06/29/20 03:00 16 Mechanical Ventilator 80 06/29/20 03:00 17 108/59 Mechanical Ventilator 80 06/29/20 03:00 101 18 104/65 (78) 94 06/29/20 02:45 102 18 96/64 (75) 94 06/29/20 02:30 104 17 107/59 (75) 94 06/29/20 02:15 98 16 105/56 (72) 96 06/29/20 02:00 16 80 06/29/20 02:00 16 104/65 Mechanical Ventilator 80 06/29/20 02:00 103 18 104/63 (77) 91 06/29/20 01:45 103 17 98/62 (74) 92 06/29/20 01:30 100 16 103/62 (76) 96 06/29/20 01:20 20 Mechanical Ventilator 80 06/29/20 01:20 20 89/57 Mechanical Ventilator 80 06/29/20 01:15 100 16 89/58 (68) 98 06/29/20 01:14 100 17 80 06/29/20 01:00 99 15 100 06/29/20 01:00 15 Mechanical Ventilator 80 06/29/20 01:00 15 88/57 Mechanical Ventilator 80 06/29/20 00:45 100 16 87/54 (65) 100 06/29/20 00:30 101 16 92/52 (65) 100 06/29/20 00:15 101 16 91/57 (68) 98 06/29/20 00:01 102 16 94/55 (68) 100 06/29/20 00:00 99.0 102 15 87/59 (68) 100 06/29/20 00:00 17 Mechanical Ventilator 80 06/29/20 00:00 17 92/52 Mechanical Ventilator 80 06/29/20 00:00 Mechanical Ventilator Mechanical Ventilator 06/28/20 23:45 105 15 91/58 (69) 100 06/28/20 23:30 104 22 80 06/28/20 23:30 104 17 95/62 (73) 100 06/28/20 23:15 103 16 92/58 (69) 100 06/28/20 23:09 104 06/28/20 23:00 104 17 89/57 (68) 100 06/28/20 23:00 18 Mechanical Ventilator 80 06/28/20 23:00 17 102/65 Mechanical Ventilator 80 06/28/20 22:45 104 16 90/65 (73) 100 06/28/20 22:30 105 18 95/58 (70) 100 06/28/20 22:15 105 17 97/58 (71) 06/28/20 22:00 106 17 91/55 (67) 06/28/20 22:00 17 Mechanical Ventilator 80 06/28/20 22:00 17 98/60 Mechanical Ventilator 80 06/28/20 21:45 106 17 87/62 (70) 06/28/20 21:30 107 17 91/54 (66) 100 06/28/20 21:15 107 17 96/60 (72) 100 06/28/20 21:00 18 Mechanical Ventilator 80 06/28/20 21:00 17 95/62 Mechanical Ventilator 80 06/28/20 21:00 110 19 96/59 (71) 100 06/28/20 20:45 113 19 100/60 (73) 100 06/28/20 20:30 112 24 80 06/28/20 20:30 113 23 108/59 (75) 100 06/28/20 20:15 110 20 105/65 (78) 99 06/28/20 20:00 80 06/28/20 20:00 19 Mechanical Ventilator 80 06/28/20 20:00 18 106/61 Mechanical Ventilator 80 06/28/20 20:00 99.3 112 22 106/61 (76) 98 06/28/20 20:00 Mechanical Ventilator Mechanical Ventilator 06/28/20 19:59 28 Mechanical Ventilator 80 06/28/20 19:45 111 19 103/60 (74) 100 06/28/20 19:45 111 06/28/20 19:30 112 21 102/58 (73) 100 06/28/20 19:15 114 21 105/62 (76) 98 06/28/20 19:06 112 24 80 06/28/20 19:00 110 17 106/63 (77) 100 06/28/20 19:00 15 Mechanical Ventilator 80 06/28/20 19:00 15 106/63 Mechanical Ventilator 80 06/28/20 19:00 110 17 106/63 (77) 100 06/28/20 18:00 15 Mechanical Ventilator 80 06/28/20 18:00 16 102/61 Mechanical Ventilator 80 06/28/20 18:00 109 21 102/61 (75) 100 06/28/20 17:30 106 22 102/67 (79) 100 06/28/20 17:00 15 Mechanical Ventilator 80 06/28/20 17:00 15 87/63 Mechanical Ventilator 80 06/28/20 17:00 105 19 87/63 (71) 98 06/28/20 16:30 107 19 97/64 (75) 98 06/28/20 16:00 Mechanical Ventilator Mechanical Ventilator 06/28/20 16:00 80 06/28/20 16:00 15 Mechanical Ventilator 80 06/28/20 16:00 15 106/67 Mechanical Ventilator 80 06/28/20 16:00 106 06/28/20 16:00 98.7 106 18 106/67 (80) 100 06/28/20 15:20 107 17 80 06/28/20 15:00 104 16 102/56 (71) 95 06/28/20 15:00 15 Mechanical Ventilator 80 06/28/20 15:00 15 102/56 Mechanical Ventilator 80 06/28/20 14:30 100 14 107/63 (78) 95 06/28/20 14:00 17 Mechanical Ventilator 80 06/28/20 14:00 17 109/65 Mechanical Ventilator 80 06/28/20 14:00 97 22 106/73 (84) 93 06/28/20 13:52 15 104/64 Mechanical Ventilator 80 06/28/20 13:51 15 Mechanical Ventilator 80 06/28/20 13:30 94 17 98/64 (75) 100 06/28/20 13:00 15 Mechanical Ventilator 80 06/28/20 13:00 16 84/68 Mechanical Ventilator 80 06/28/20 13:00 94 17 88/64 (72) 99 Height (Feet): 5 Height (Inches): 5.00 Weight (Pounds): 308 HEENT: other - orally intubated Respiratory/Chest: other - on ventilator, FIO2=60% Cardiovascular: tachycardia, other - PICC line Abdomen: soft, non tender Extremities: other - general edema Neurologic/Psychiatric: other - sedated Microbiology Date/Time Source Procedure Growth Status 06/28/20 09:55 Nasopharynx Coronavirus COVID-19 PCR ([facility]) - Final Complete Laboratory Tests Test 06/28/20 12:25 06/28/20 17:33 06/29/20 03:45 POC Whole Blood Glucose 105 MG/DL (74-106) 116 MG/DL (74-106) H White Blood Count 10.3 K/UL (4.8-10.8) Red Blood Count 3.32 M/UL (4.20-5.40) L Hemoglobin 9.5 G/DL (12.0-16.0) L Hematocrit 31.2 % (37.0-47.0) L Mean Corpuscular Volume 94 FL (80-99) Mean Corpuscular Hemoglobin 28.5 PG (27.0-31.0) Mean Corpuscular Hemoglobin Concent 30.4 G/DL (32.0-36.0) L Red Cell Distribution Width 16.7 % (11.6-14.8) H Platelet Count 229 K/UL (150-450) Mean Platelet Volume 7.7 FL (6.5-10.1) Neutrophils (%) (Auto) 63.2 % (45.0-75.0) Lymphocytes (%) (Auto) 25.8 % (20.0-45.0) Monocytes (%) (Auto) 4.6 % (1.0-10.0) Eosinophils (%) (Auto) 5.7 % (0.0-3.0) H Basophils (%) (Auto) 0.7 % (0.0-2.0) Sodium Level 138 MMOL/L (136-145) Potassium Level 4.6 MMOL/L (3.5-5.1) Chloride Level 99 MMOL/L (98-107) Carbon Dioxide Level 37 MMOL/L (21-32) H Anion Gap 2 mmol/L (5-15) L Blood Urea Nitrogen 13 mg/dL (7-18) Creatinine 0.5 MG/DL (0.55-1.30) L Estimat Glomerular Filtration Rate > 60 mL/min (>60) Glucose Level 107 MG/DL (74-106) H Calcium Level 8.6 MG/DL (8.5-10.1) Current Medications Medications (Trade) Dose Ordered Sig/Zelda Route PRN Reason Start Time Stop Time Status Last Admin Dose Admin Acetaminophen (Tylenol) 650 mg Q4H PRN NG Temp >100.5 06/29/20 10:15 07/29/20 10:14 Acetaminophen (Tylenol) 650 mg Q6H PRN NG Mild Pain (Pain Scale 1-3) 06/29/20 10:15 07/29/20 10:14 Chlorhexidine Gluconate (Inna-Hex 2%) 1 applic DAILY@2000 TOPIC 05/30/20 20:00 08/28/20 19:59 06/28/20 19:56 Dextrose (Dextrose 50%) 25 ml Q30M PRN IV Hypoglycemia 06/05/20 10:45 09/03/20 10:44 Dextrose (Dextrose 50%) 50 ml Q30M PRN IV Hypoglycemia 06/05/20 10:45 09/03/20 10:44 Dextrose/Sodium Chloride 1,000 ml @ 50 mls/hr Q20H IV 06/24/20 16:30 07/24/20 16:29 06/28/20 19:59 Docusate Sodium (Colace) 100 mg Q12HR GT 06/07/20 21:00 07/07/20 20:59 06/29/20 09:21 Enoxaparin Sodium (Lovenox) 40 mg DAILY SUBQ 05/30/20 10:00 08/28/20 09:59 06/29/20 09:22 Fentanyl Citrate 250 ml @ 1 mls/hr Q24H IV 06/29/20 00:45 07/01/20 00:44 06/29/20 04:12 Furosemide (Lasix) 40 mg DAILY IV 06/22/20 09:00 07/22/20 08:59 06/29/20 09:21 Insulin Aspart (NovoLOG) EVERY 6 HOURS SUBQ 06/07/20 00:00 09/03/20 11:59 06/24/20 18:00 Midazolam HCl 100 mg/Sodium Chloride 200 ml @ 0 mls/hr Q24H PRN IV DIRECTED 06/27/20 15:11 06/29/20 15:10 06/29/20 07:43 Midodrine (Pro-Amatine) 10 mg Q8HR ORAL 06/14/20 14:00 09/12/20 13:59 06/29/20 06:00 Pantoprazole (Protonix) 40 mg Q12HR IVP 06/13/20 21:00 07/03/20 08:59 06/29/20 09:21 Polyethylene Glycol (Miralax) 17 gm BEDTIME GT 06/07/20 21:00 07/07/20 20:59 06/28/20 19:57 Vitamin D (Vitamin D) 5,000 unit DAILY GT 06/28/20 09:00 07/28/20 08:59 06/29/20 09:21 Colt Arana MD Jun 29, 2020 12:24
--- NOTE | 2020-06-29 12:36 | NUR ---
NURSE NOTES: BS 118. No Novolog insulin coverage given, per sliding scale. Pt remains sedated RASS -2 on Fentanyl 100mcg/hr and Versed 10mg/hr. FiO2 down to 60%. No distress noted, pt tolerating well.
[2020-06-29] MEDS: D5 1/2NS 1,000 ML IV SCH (14:00)
--- NOTE | 2020-06-29 14:00 | NUR ---
RESPIRATORY NOTE: Decreased PEEP to +[address] Nava. RN aware. Fio2 80%. Pt tolerating at this time. Will continue to titrate Fio2. Will continue to monitor and follow plan of care.
--- NOTE | 2020-06-29 15:00 | NUR ---
NURSE NOTES: Increased Fentanyl to 130mcg/h and Versed to 12mg/hr d/t pt grimacing, coughing, not tolerating the ventilator. Pt now RASS -2
--- NOTE | 2020-06-29 15:29 | Surgery Progress Note ---
Surgery Progress Note Subjective Additional Comments weaning vent 80% peep 8 ill appearing on support no n/v labs noted edema Objective Last 24 Hour Vital Signs Date Time Temp Pulse Resp B/P (MAP) Pulse Ox O2 Delivery O2 Flow Rate FiO2 06/29/20 15:00 18 98/61 Mechanical Ventilator 80 06/29/20 15:00 18 Mechanical Ventilator 80 06/29/20 14:45 21 102/65 Mechanical Ventilator 80 06/29/20 14:45 21 Mechanical Ventilator 80 06/29/20 14:30 23 110/68 Mechanical Ventilator 80 06/29/20 14:30 23 Mechanical Ventilator 80 06/29/20 14:15 23 92/61 Mechanical Ventilator 80 06/29/20 14:10 80 06/29/20 14:00 80 06/29/20 14:00 98 16 94/62 (73) 100 06/29/20 14:00 16 94/62 Mechanical Ventilator 50 06/29/20 14:00 16 Mechanical Ventilator 50 06/29/20 13:30 98 17 99/60 (73) 100 06/29/20 13:00 17 95/62 Mechanical Ventilator 60 06/29/20 13:00 17 Mechanical Ventilator 60 06/29/20 13:00 99 16 95/62 (73) 100 06/29/20 13:00 106 18 50 06/29/20 12:30 101 17 98/64 (75) 100 06/29/20 12:00 Mechanical Ventilator Mechanical Ventilator 06/29/20 12:00 16 103/60 Mechanical Ventilator 60 06/29/20 12:00 16 Mechanical Ventilator 60 06/29/20 12:00 99.2 101 19 103/60 (74) 100 06/29/20 12:00 60 06/29/20 11:30 105 22 102/71 (81) 94 06/29/20 11:15 101 21 108/69 (82) 93 06/29/20 11:05 106 18 60 06/29/20 11:00 106 21 111/68 (82) 100 06/29/20 11:00 16 111/68 Mechanical Ventilator 60 06/29/20 11:00 16 Mechanical Ventilator 60 06/29/20 10:30 101 16 110/72 (85) 100 06/29/20 10:00 104 22 110/66 (81) 94 06/29/20 10:00 16 110/66 Mechanical Ventilator 70 06/29/20 10:00 16 Mechanical Ventilator 70 06/29/20 09:30 102 21 98/61 (73) 100 06/29/20 09:00 101 19 109/68 (82) 98 06/29/20 09:00 16 109/68 Mechanical Ventilator 70 06/29/20 09:00 16 Mechanical Ventilator 70 06/29/20 09:00 70 06/29/20 09:00 108 19 70 06/29/20 08:30 101 17 105/67 (80) 100 06/29/20 08:00 80 06/29/20 08:00 98.9 100 18 99/65 (76) 100 06/29/20 08:00 19 99/65 Mechanical Ventilator 80 06/29/20 08:00 19 Mechanical Ventilator 80 06/29/20 08:00 Mechanical Ventilator Mechanical Ventilator 06/29/20 07:43 17 Mechanical Ventilator 80 06/29/20 07:30 112 32 109/70 (83) 94 06/29/20 07:00 98 17 80 06/29/20 07:00 103 23 98/66 (77) 99 06/29/20 07:00 24 98/66 Mechanical Ventilator 70 06/29/20 06:30 103 18 105/64 (78) 99 06/29/20 06:15 105 18 105/63 (77) 98 06/29/20 06:00 86 20 06/29/20 06:00 16 91/63 Mechanical Ventilator 80 06/29/20 06:00 99.0 105 19 91/63 (72) 100 06/29/20 05:45 106 20 92/62 (72) 100 06/29/20 05:30 105 19 96/65 (75) 100 06/29/20 05:15 106 23 105/63 (77) 95 06/29/20 05:07 106 18 80 06/29/20 05:00 105 20 108/67 (81) 94 06/29/20 05:00 16 108/67 Mechanical Ventilator 80 06/29/20 04:45 105 20 96/62 (73) 89 06/29/20 04:30 103 21 97/71 (80) 95 06/29/20 04:15 103 18 104/60 (75) 96 06/29/20 04:12 18 108/59 Mechanical Ventilator 80 06/29/20 04:00 98.8 100 20 108/59 (75) 96 06/29/20 04:00 80 06/29/20 04:00 Mechanical Ventilator Mechanical Ventilator 06/29/20 03:45 105 25 109/66 (80) 99 06/29/20 03:30 101 17 105/62 (76) 96 06/29/20 03:22 101 28 80 06/29/20 03:21 103 06/29/20 03:15 102 18 97/67 (77) 96 06/29/20 03:00 16 Mechanical Ventilator 80 06/29/20 03:00 17 108/59 Mechanical Ventilator 80 06/29/20 03:00 101 18 104/65 (78) 94 06/29/20 02:45 102 18 96/64 (75) 94 06/29/20 02:30 104 17 107/59 (75) 94 06/29/20 02:15 98 16 105/56 (72) 96 06/29/20 02:00 16 80 06/29/20 02:00 16 104/65 Mechanical Ventilator 80 06/29/20 02:00 103 18 104/63 (77) 91 06/29/20 01:45 103 17 98/62 (74) 92 06/29/20 01:30 100 16 103/62 (76) 96 06/29/20 01:20 20 Mechanical Ventilator 80 06/29/20 01:20 20 89/57 Mechanical Ventilator 80 06/29/20 01:15 100 16 89/58 (68) 98 06/29/20 01:14 100 17 80 06/29/20 01:00 99 15 100 06/29/20 01:00 15 Mechanical Ventilator 80 06/29/20 01:00 15 88/57 Mechanical Ventilator 80 06/29/20 00:45 100 16 87/54 (65) 100 06/29/20 00:30 101 16 92/52 (65) 100 06/29/20 00:15 101 16 91/57 (68) 98 06/29/20 00:01 102 16 94/55 (68) 100 06/29/20 00:00 99.0 102 15 87/59 (68) 100 06/29/20 00:00 17 Mechanical Ventilator 80 06/29/20 00:00 17 92/52 Mechanical Ventilator 80 06/29/20 00:00 Mechanical Ventilator Mechanical Ventilator 06/28/20 23:45 105 15 91/58 (69) 100 06/28/20 23:30 104 22 80 06/28/20 23:30 104 17 95/62 (73) 100 06/28/20 23:15 103 16 92/58 (69) 100 06/28/20 23:09 104 06/28/20 23:00 104 17 89/57 (68) 100 06/28/20 23:00 18 Mechanical Ventilator 80 06/28/20 23:00 17 102/65 Mechanical Ventilator 80 06/28/20 22:45 104 16 90/65 (73) 100 06/28/20 22:30 105 18 95/58 (70) 100 06/28/20 22:15 105 17 97/58 (71) 06/28/20 22:00 106 17 91/55 (67) 06/28/20 22:00 17 Mechanical Ventilator 80 06/28/20 22:00 17 98/60 Mechanical Ventilator 80 06/28/20 21:45 106 17 87/62 (70) 06/28/20 21:30 107 17 91/54 (66) 100 06/28/20 21:15 107 17 96/60 (72) 100 06/28/20 21:00 18 Mechanical Ventilator 80 06/28/20 21:00 17 95/62 Mechanical Ventilator 80 06/28/20 21:00 110 19 96/59 (71) 100 06/28/20 20:45 113 19 100/60 (73) 100 06/28/20 20:30 112 24 80 06/28/20 20:30 113 23 108/59 (75) 100 06/28/20 20:15 110 20 105/65 (78) 99 06/28/20 20:00 80 06/28/20 20:00 19 Mechanical Ventilator 80 06/28/20 20:00 18 106/61 Mechanical Ventilator 80 06/28/20 20:00 99.3 112 22 106/61 (76) 98 06/28/20 20:00 Mechanical Ventilator Mechanical Ventilator 06/28/20 19:59 28 Mechanical Ventilator 80 06/28/20 19:45 111 19 103/60 (74) 100 06/28/20 19:45 111 06/28/20 19:30 112 21 102/58 (73) 100 06/28/20 19:15 114 21 105/62 (76) 98 06/28/20 19:06 112 24 80 2/5/21 19:00 110 17 106/63 (77) 100 06/28/20 19:00 15 Mechanical Ventilator 80 06/28/20 19:00 15 106/63 Mechanical Ventilator 80 06/28/20 19:00 110 17 106/63 (77) 100 06/28/20 18:00 15 Mechanical Ventilator 80 06/28/20 18:00 16 102/61 Mechanical Ventilator 80 06/28/20 18:00 109 21 102/61 (75) 100 06/28/20 17:30 106 22 102/67 (79) 100 06/28/20 17:00 15 Mechanical Ventilator 80 06/28/20 17:00 15 87/63 Mechanical Ventilator 80 06/28/20 17:00 105 19 87/63 (71) 98 06/28/20 16:30 107 19 97/64 (75) 98 06/28/20 16:00 Mechanical Ventilator Mechanical Ventilator 06/28/20 16:00 80 06/28/20 16:00 15 Mechanical Ventilator 80 06/28/20 16:00 15 106/67 Mechanical Ventilator 80 06/28/20 16:00 106 06/28/20 16:00 98.7 106 18 106/67 (80) 100 I&O Intake and Output 06/28/20 06/29/20 19:00 07:00 Intake Total 1399.16 ml 1540 ml Output Total 690 ml 400 ml Balance 709.16 ml 1140 ml Free Water 200 ml 470 ml IV Total 1199.16 ml 1070 ml Output Urine Total 690 ml 400 ml Stool Total 0 ml 0 ml Cardiovascular: RSR Respiratory: decreased breath sounds Abdomen: soft, non-tender, present bowel sounds, non-distended Extremities: edema, no tenderness, no cyanosis Laboratory Tests Test 06/28/20 17:33 06/29/20 03:45 POC Whole Blood Glucose 116 MG/DL (74-106) H White Blood Count 10.3 K/UL (4.8-10.8) Red Blood Count 3.32 M/UL (4.20-5.40) L Hemoglobin 9.5 G/DL (12.0-16.0) L Hematocrit 31.2 % (37.0-47.0) L Mean Corpuscular Volume 94 FL (80-99) Mean Corpuscular Hemoglobin 28.5 PG (27.0-31.0) Mean Corpuscular Hemoglobin Concent 30.4 G/DL (32.0-36.0) L Red Cell Distribution Width 16.7 % (11.6-14.8) H Platelet Count 229 K/UL (150-450) Mean Platelet Volume 7.7 FL (6.5-10.1) Neutrophils (%) (Auto) 63.2 % (45.0-75.0) Lymphocytes (%) (Auto) 25.8 % (20.0-45.0) Monocytes (%) (Auto) 4.6 % (1.0-10.0) Eosinophils (%) (Auto) 5.7 % (0.0-3.0) H Basophils (%) (Auto) 0.7 % (0.0-2.0) Sodium Level 138 MMOL/L (136-145) Potassium Level 4.6 MMOL/L (3.5-5.1) Chloride Level 99 MMOL/L (98-107) Carbon Dioxide Level 37 MMOL/L (21-32) H Anion Gap 2 mmol/L (5-15) L Blood Urea Nitrogen 13 mg/dL (7-18) Creatinine 0.5 MG/DL (0.55-1.30) L Estimat Glomerular Filtration Rate > 60 mL/min (>60) Glucose Level 107 MG/DL (74-106) H Calcium Level 8.6 MG/DL (8.5-10.1) Plan Problems: (1) Respiratory distress (2) Respiratory failure Assessment & Plan: 50-year-old female Covid positive respiratory insufficiency intubated on ventilatory support declining. Leukocytosis increase oxygen requirement. Vent settings per pulmonology reviewed identified and agree. Unfortunately further surgical invention at this time is not appropriate as patient is not a candidate and her current condition. Prognosis overall guarded. Tracheostomy can be considered in the future if recovering or shows improvement and requires unable to be weaned from ventilator support. Currently okay for nutritional optimization with NG tube. Will need significant monitoring for decubitus formation given patient's size and condition. Okay for air mattress tolerated. Turn every 2 hours as tolerated. Patient is otherwise critically ill and blood pressure labile. Will need to monitor closely.Bilateral infiltrates are again demonstrated. Stable tube and line positions. will need trach will need to wean vent first (3) Hypoxia (4) Pneumonia due to COVID-19 virus Assessment & Plan: ++ as per pulm and ID (5) Diabetes mellitus out of control Assessment & Plan: DAILY ESTIMATED NEEDS: Needs based on Critical care, obesity 11-14kcal/kg actual body wt (140kg) kcals/kg 1266-4006 total kcals 1.5-2.0g prot/kg IBW (64.5kg) g protein/kg 96-129 g total protein 25-30ml/kg abw (83kg) mL/kg 8666-1455 total fluid mLs NUTRITION DIAGNOSIS: Swallowing difficulty R/T respiratory failure as evidenced by pt orally intubated and sedated, on OGT feeds. CURRENT TF: Vital 1.2 goal of 60ml/hr ENTERAL NUTRITION RECOMMENDATIONS: Vital AF 1.2 @ 60ml/hr x 24 hrs to provide 1440ml, 1728kcal, 108g prot, 1168ml free water * Maintain current critical care and carb controlled TF formula of Vital AF * TF @ goal meeds 100% est kcal/prot needs * HOB over 30 degrees/ water flush per MD TF may be lowered to 55ml/hr for improved BG control while maintaining Kcal and pro needs. ADDITIONAL RECOMMENDATIONS: * Calibrated bedscale wt * Monitor Propofol rate, need for TF adjustment-> now off * Monitor BGs closely : now improved, on novolog q 6rs + NISS * Monitor lytes- K elevated, monitor need for TF change * Rec bowel regimen- now w/ rectal tube . Az Devine Jun 29, 2020 15:29
--- NOTE | 2020-06-29 15:36 | Pulmonology Progress Note ---
Subjective ROS Limited/Unobtainable: Yes Interval Events: Remains intubated Constitutional: Denies: fever HEENT: Repors: no symptoms Respiratory: Reports: no symptoms Cardiovascular: Reports: no symptoms Gastrointestinal/Abdominal: Reports: no symptoms Genitourinary: Reports: no symptoms Allergies: Coded Allergies: No Known Allergies (Unverified , 05/28/20) All Systems: reviewed and negative except above Objective Last 24 Hour Vital Signs Date Time Temp Pulse Resp B/P (MAP) Pulse Ox O2 Delivery O2 Flow Rate FiO2 06/29/20 15:00 18 98/61 Mechanical Ventilator 80 06/29/20 15:00 18 Mechanical Ventilator 80 06/29/20 14:45 21 102/65 Mechanical Ventilator 80 06/29/20 14:45 21 Mechanical Ventilator 80 06/29/20 14:30 23 110/68 Mechanical Ventilator 80 06/29/20 14:30 23 Mechanical Ventilator 80 06/29/20 14:15 23 92/61 Mechanical Ventilator 80 06/29/20 14:10 80 06/29/20 14:00 80 06/29/20 14:00 98 16 94/62 (73) 100 06/29/20 14:00 16 94/62 Mechanical Ventilator 50 06/29/20 14:00 16 Mechanical Ventilator 50 06/29/20 13:30 98 17 99/60 (73) 100 06/29/20 13:00 17 95/62 Mechanical Ventilator 60 06/29/20 13:00 17 Mechanical Ventilator 60 06/29/20 13:00 99 16 95/62 (73) 100 06/29/20 13:00 106 18 50 06/29/20 12:30 101 17 98/64 (75) 100 06/29/20 12:00 Mechanical Ventilator Mechanical Ventilator 06/29/20 12:00 16 103/60 Mechanical Ventilator 60 06/29/20 12:00 16 Mechanical Ventilator 60 06/29/20 12:00 99.2 101 19 103/60 (74) 100 06/29/20 12:00 60 06/29/20 11:30 105 22 102/71 (81) 94 06/29/20 11:15 101 21 108/69 (82) 93 06/29/20 11:05 106 18 60 06/29/20 11:00 106 21 111/68 (82) 100 06/29/20 11:00 16 111/68 Mechanical Ventilator 60 06/29/20 11:00 16 Mechanical Ventilator 60 06/29/20 10:30 101 16 110/72 (85) 100 06/29/20 10:00 104 22 110/66 (81) 94 06/29/20 10:00 16 110/66 Mechanical Ventilator 70 06/29/20 10:00 16 Mechanical Ventilator 70 06/29/20 09:30 102 21 98/61 (73) 100 06/29/20 09:00 101 19 109/68 (82) 98 06/29/20 09:00 16 109/68 Mechanical Ventilator 70 06/29/20 09:00 16 Mechanical Ventilator 70 06/29/20 09:00 70 06/29/20 09:00 108 19 70 06/29/20 08:30 101 17 105/67 (80) 100 06/29/20 08:00 80 06/29/20 08:00 98.9 100 18 99/65 (76) 100 06/29/20 08:00 19 99/65 Mechanical Ventilator 80 06/29/20 08:00 19 Mechanical Ventilator 80 06/29/20 08:00 Mechanical Ventilator Mechanical Ventilator 06/29/20 07:43 17 Mechanical Ventilator 80 06/29/20 07:30 112 32 109/70 (83) 94 06/29/20 07:00 98 17 80 06/29/20 07:00 103 23 98/66 (77) 99 06/29/20 07:00 24 98/66 Mechanical Ventilator 70 06/29/20 06:30 103 18 105/64 (78) 99 06/29/20 06:15 105 18 105/63 (77) 98 06/29/20 06:00 86 20 06/29/20 06:00 16 91/63 Mechanical Ventilator 80 06/29/20 06:00 99.0 105 19 91/63 (72) 100 06/29/20 05:45 106 20 92/62 (72) 100 06/29/20 05:30 105 19 96/65 (75) 100 06/29/20 05:15 106 23 105/63 (77) 95 06/29/20 05:07 106 18 80 06/29/20 05:00 105 20 108/67 (81) 94 06/29/20 05:00 16 108/67 Mechanical Ventilator 80 06/29/20 04:45 105 20 96/62 (73) 89 06/29/20 04:30 103 21 97/71 (80) 95 06/29/20 04:15 103 18 104/60 (75) 96 06/29/20 04:12 18 108/59 Mechanical Ventilator 80 06/29/20 04:00 98.8 100 20 108/59 (75) 96 06/29/20 04:00 80 06/29/20 04:00 Mechanical Ventilator Mechanical Ventilator 06/29/20 03:45 105 25 109/66 (80) 99 06/29/20 03:30 101 17 105/62 (76) 96 06/29/20 03:22 101 28 80 06/29/20 03:21 103 06/29/20 03:15 102 18 97/67 (77) 96 06/29/20 03:00 16 Mechanical Ventilator 80 06/29/20 03:00 17 108/59 Mechanical Ventilator 80 06/29/20 03:00 101 18 104/65 (78) 94 06/29/20 02:45 102 18 96/64 (75) 94 06/29/20 02:30 104 17 107/59 (75) 94 06/29/20 02:15 98 16 105/56 (72) 96 06/29/20 02:00 16 80 06/29/20 02:00 16 104/65 Mechanical Ventilator 80 06/29/20 02:00 103 18 104/63 (77) 91 06/29/20 01:45 103 17 98/62 (74) 92 06/29/20 01:30 100 16 103/62 (76) 96 06/29/20 01:20 20 Mechanical Ventilator 80 06/29/20 01:20 20 89/57 Mechanical Ventilator 80 06/29/20 01:15 100 16 89/58 (68) 98 06/29/20 01:14 100 17 80 06/29/20 01:00 99 15 100 06/29/20 01:00 15 Mechanical Ventilator 80 06/29/20 01:00 15 88/57 Mechanical Ventilator 80 06/29/20 00:45 100 16 87/54 (65) 100 06/29/20 00:30 101 16 92/52 (65) 100 06/29/20 00:15 101 16 91/57 (68) 98 06/29/20 00:01 102 16 94/55 (68) 100 06/29/20 00:00 99.0 102 15 87/59 (68) 100 06/29/20 00:00 17 Mechanical Ventilator 80 06/29/20 00:00 17 92/52 Mechanical Ventilator 80 06/29/20 00:00 Mechanical Ventilator Mechanical Ventilator 06/28/20 23:45 105 15 91/58 (69) 100 06/28/20 23:30 104 22 80 06/28/20 23:30 104 17 95/62 (73) 100 06/28/20 23:15 103 16 92/58 (69) 100 06/28/20 23:09 104 06/28/20 23:00 104 17 89/57 (68) 100 06/28/20 23:00 18 Mechanical Ventilator 80 06/28/20 23:00 17 102/65 Mechanical Ventilator 80 06/28/20 22:45 104 16 90/65 (73) 100 06/28/20 22:30 105 18 95/58 (70) 100 06/28/20 22:15 105 17 97/58 (71) 06/28/20 22:00 106 17 91/55 (67) 06/28/20 22:00 17 Mechanical Ventilator 80 06/28/20 22:00 17 98/60 Mechanical Ventilator 80 06/28/20 21:45 106 17 87/62 (70) 06/28/20 21:30 107 17 91/54 (66) 100 06/28/20 21:15 107 17 96/60 (72) 100 06/28/20 21:00 18 Mechanical Ventilator 80 06/28/20 21:00 17 95/62 Mechanical Ventilator 80 06/28/20 21:00 110 19 96/59 (71) 100 06/28/20 20:45 113 19 100/60 (73) 100 06/28/20 20:30 112 24 80 06/28/20 20:30 113 23 108/59 (75) 100 06/28/20 20:15 110 20 105/65 (78) 99 06/28/20 20:00 80 06/28/20 20:00 19 Mechanical Ventilator 80 06/28/20 20:00 18 106/61 Mechanical Ventilator 80 06/28/20 20:00 99.3 112 22 106/61 (76) 98 06/28/20 20:00 Mechanical Ventilator Mechanical Ventilator 06/28/20 19:59 28 Mechanical Ventilator 80 06/28/20 19:45 111 19 103/60 (74) 100 06/28/20 19:45 111 06/28/20 19:30 112 21 102/58 (73) 100 06/28/20 19:15 114 21 105/62 (76) 98 06/28/20 19:06 112 24 80 06/28/20 19:00 110 17 106/63 (77) 100 06/28/20 19:00 15 Mechanical Ventilator 80 06/28/20 19:00 15 106/63 Mechanical Ventilator 80 06/28/20 19:00 110 17 106/63 (77) 100 06/28/20 18:00 15 Mechanical Ventilator 80 06/28/20 18:00 16 102/61 Mechanical Ventilator 80 06/28/20 18:00 109 21 102/61 (75) 100 06/28/20 17:30 106 22 102/67 (79) 100 06/28/20 17:00 15 Mechanical Ventilator 80 06/28/20 17:00 15 87/63 Mechanical Ventilator 80 06/28/20 17:00 105 19 87/63 (71) 98 06/28/20 16:30 107 19 97/64 (75) 98 06/28/20 16:00 Mechanical Ventilator Mechanical Ventilator 06/28/20 16:00 80 06/28/20 16:00 15 Mechanical Ventilator 80 06/28/20 16:00 15 106/67 Mechanical Ventilator 80 06/28/20 16:00 106 06/28/20 16:00 98.7 106 18 106/67 (80) 100 Intake and Output 06/28/20 06/29/20 19:00 07:00 Intake Total 1399.16 ml 1540 ml Output Total 690 ml 400 ml Balance 709.16 ml 1140 ml Free Water 200 ml 470 ml IV Total 1199.16 ml 1070 ml Output Urine Total 690 ml 400 ml Stool Total 0 ml 0 ml General Appearance: no acute distress HEENT: normocephalic Respiratory: chest wall non-tender Cardiovascular: normal peripheral pulses Abdomen: normal bowel sounds Microbiology Date/Time Source Procedure Growth Status 06/28/20 09:55 Nasopharynx Coronavirus COVID-19 PCR ([facility]) - Final Complete Laboratory Tests 06/28/20 17:33: POC Whole Blood Glucose 116H 06/29/20 03:45: White Blood Count 10.3, Red Blood Count 3.32L, Hemoglobin 9.5L, Hematocrit 31.2L , Mean Corpuscular Volume 94, Mean Corpuscular Hemoglobin 28.5, Mean Corpuscular Hemoglobin Concent 30.4L, Red Cell Distribution Width 16.7H, Platelet Count 229, Mean Platelet Volume 7.7, Neutrophils (%) (Auto) 63.2, Lymphocytes (%) (Auto) 25.8, Monocytes (%) (Auto) 4.6, Eosinophils (%) (Auto) 5.7H, Basophils (%) (Auto) 0.7, Sodium Level 138, Potassium Level 4.6, Chloride Level 99, Carbon Dioxide Level 37H, Anion Gap 2L, Blood Urea Nitrogen 13, Creatinine 0.5L, Estimat Glomerular Filtration Rate > 60, Glucose Level 107H, Calcium Level 8.6 Current Medications Medications (Trade) Dose Ordered Sig/Zelda Route PRN Reason Start Time Stop Time Status Last Admin Dose Admin Acetaminophen (Tylenol) 650 mg Q4H PRN NG Temp >100.5 06/29/20 10:15 07/29/20 10:14 Acetaminophen (Tylenol) 650 mg Q6H PRN NG Mild Pain (Pain Scale 1-3) 06/29/20 10:15 07/29/20 10:14 Chlorhexidine Gluconate (Inna-Hex 2%) 1 applic DAILY@2000 TOPIC 05/30/20 20:00 08/28/20 19:59 06/28/20 19:56 Dextrose (Dextrose 50%) 25 ml Q30M PRN IV Hypoglycemia 06/05/20 10:45 09/03/20 10:44 Dextrose (Dextrose 50%) 50 ml Q30M PRN IV Hypoglycemia 06/05/20 10:45 09/03/20 10:44 Dextrose/Sodium Chloride 1,000 ml @ 50 mls/hr Q20H IV 06/24/20 16:30 07/24/20 16:29 06/29/20 14:00 Docusate Sodium (Colace) 100 mg Q12HR GT 06/07/20 21:00 07/07/20 20:59 06/29/20 09:21 Enoxaparin Sodium (Lovenox) 40 mg DAILY SUBQ 05/30/20 10:00 08/28/20 09:59 06/29/20 09:22 Fentanyl Citrate 250 ml @ 1 mls/hr Q24H IV 06/29/20 00:45 07/01/20 00:44 06/29/20 04:12 Furosemide (Lasix) 40 mg DAILY IV 06/22/20 09:00 07/22/20 08:59 06/29/20 09:21 Insulin Aspart (NovoLOG) EVERY 6 HOURS SUBQ 06/07/20 00:00 09/03/20 11:59 06/24/20 18:00 Midazolam HCl 100 mg/Sodium Chloride 200 ml @ 2 mls/hr Q24H PRN IV sedation 06/29/20 15:25 07/01/20 15:24 Midodrine (Pro-Amatine) 10 mg Q8HR ORAL 06/14/20 14:00 09/12/20 13:59 06/29/20 13:44 Pantoprazole (Protonix) 40 mg Q12HR IVP 06/13/20 21:00 07/03/20 08:59 06/29/20 09:21 Polyethylene Glycol (Miralax) 17 gm BEDTIME GT 06/07/20 21:00 07/07/20 20:59 06/28/20 19:57 Vitamin D (Vitamin D) 5,000 unit DAILY GT 06/28/20 09:00 07/28/20 08:59 06/29/20 09:21 Assessment/Plan Assessment/Plan 1. COVID-19 pneumonia -Intubated 05/28/20 - We will continue broad-spectrum antibiotics. -s/p solumedrol, Rocephin -Continue PEEP 6 - Peak airway pressures high; 45 - FiO2 100% -> 90 ->80->60 ->40 ->80 ->100 ->80 -60%; -will continue OGT feeding -Continue sedation; Need to keep patient completely sedated. 2. Hyponatremia -Per primary MD 3. Elevated inflammatory markers - has high D dimer; Lovenox on hold due to hematuria 4. Decrease PEEP Continue weaning efforts May need trach Discussed with surgery Currently FiO2 too high for safe tracheostomy; however slowly improving Long discussion with family who wish to wean her off the oxygen eventually instead of trach. Trach if "necessary" per family. Discussed again with niece. She was advised regarding poor prognosis. Discussed with RN. Noted bioethics evaluation. Javier Nava MD Jun 29, 2020 15:36
--- NOTE | 2020-06-29 16:25 | NUR ---
NURSE NOTES: Pt ventilator settings now AC 15, TV 600, PEEP 8, FiO2 70%; O2sat reading 97% on phototypesetting equipment monitor
--- NOTE | 2020-06-29 17:20 | NUR ---
NURSE NOTES: Dr Tyler at bedside assessing pt. Updated him on pt's current condition. No new orders given.
--- NOTE | 2020-06-29 17:27 | NUR ---
CASE MANAGEMENT:REVIEW 06/28/20 SI: COVID PNA ACUTE RESPIRATORY FAILURE~ INTUBATED VS: T 99.3 HR 112 RR 22 B/P 106/61 SATS 98% ON MECH VENT FIO2 80 LABS: WBC 12.3 CO2 35 BUN 22 GLU 124 IS: FENTANYL GTT IVF@50 mL/HR IV LASIX QD IV PROTONIX Q12 LOVENOX SQ QD MIDODRINE NG Q8HRS : ICU STATUS DCP: FROM HOME PLAN: WEAN TOLERATED CASE MANAGEMENT:REVIEW 06/29/20 SI: COVID PNA ACUTE RESPIRATORY FAILURE~ INTUBATED VS: T 99.2 HR 101 RR 19 B/P 103/60 SATS 100% ON MECH VENT FIO2 60 LABS: CO2 37 CR 0.5 GLU 107 IS: FENTANYL GTT IVF@50 mL/HR IV LASIX QD IV PROTONIX Q12 LOVENOX SQ QD MIDODRINE NG Q8HRS : ICU STATUS DCP: FROM HOME
--- NOTE | 2020-06-29 17:47 | Nephrology Progress Note ---
Assessment/Plan Problem List: (1) DEVENDRA (acute kidney injury) (2) Morbid obesity (3) Diabetes mellitus out of control (4) Pneumonia due to COVID-19 virus (5) Respiratory failure Assessment Acute renal failure Obstructive uropathy, clogged Lennon Respiratory failure COVID-19 pneumonia Morbid obesity Plan June 29: Full code. Intubated on ventilator. Labs reviewed. Stable from renal standpoint of view. Continue per consultants. June 28: Remains full code. Remains intubated on ventilator. Labs reviewed. Vitamin D supplement ordered. Continue to monitor renal parameters. Continue per consultants. June 27: Remains full code. Intubated on ventilator. Labs reviewed. Abnor mal electrolyte addressed. Continue to monitor renal parameters and electrolytes. Continue per consultants. June 26: Labs reviewed. Remains full code. Remains intubated. Back on NGT feeding. Continue to monitor renal parameters. June 25: Labs reviewed. Renal parameters stable. Remains full code. Due to positional status patient could not be fed via NG tube. Starting TPN? Is being entertained. Continue per consultants. June 24: Labs reviewed. Renal parameters stable. Remains full code. Remains intubated on ventilator. Continue per consultants. June 23: Labs reviewed. Renal parameters stable. Discussed with RN. Abnormal electrolyte addressed. Remains full code. Remains on ventilator. Continue per consultants. June 22: Labs reviewed. Low potassium addressed. Discussed with RAKEL Moran. Patient full code. Remains on ventilator. Continue to monitor renal parameters. June 21. Labs reviewed. Abnormal electrolyte addressed. Full code. Remains on ventilator. Medication list reviewed. Continue per pulmonary management. DC IV fluid, resume Lasix daily, check chest x-ray. June 20: Labs reviewed. Abnormal electrolytes. Patient remains full code. Continue per consultants. Noted and addressed June 19: Labs reviewed. Abnormal electrolytes noted and addressed. Remains intubated on ventilator. Remains full code. June 18: Labs reviewed. Remains intubated on ventilator. Full code. Abnormal electrolyte addressed. Continue as is. June 17: Labs reviewed. Abnormal electrolytes addressed. Patient remains full code and intubated on ventilator. Continue per consultants. Renal parameters are within normal limits. June 16: Labs reviewed. Potassium chloride replaced. Remains full code. Remains intubated on ventilator. Continue per consultants. Continue to monitor renal parameters. June 15: Labs reviewed. Serum creatinine 1. Stable from renal standpoint to view. Continue per consultants. June 14: Labs reviewed. Full code. Serum creatinine of 3.5 down to 1.4. Low potassium addressed. Continue per current treatment plan. Continue to monitor renal parameters. Midodrine started. Albumin bolus given. Previously: DC Lasix drip Increase Protonix dose Monitor renal parameters, electrolytes Per orders Subjective ROS Limited/Unobtainable: Yes Objective Objective Last 24 Hour Vital Signs Date Time Temp Pulse Resp B/P (MAP) Pulse Ox O2 Delivery O2 Flow Rate FiO2 06/29/20 17:10 92 18 70 06/29/20 16:00 Mechanical Ventilator Mechanical Ventilator 06/29/20 16:00 18 Mechanical Ventilator 70 06/29/20 16:00 18 97/64 Mechanical Ventilator 70 06/29/20 15:50 18 Mechanical Ventilator 70 06/29/20 15:45 95 18 100/66 (77) 97 06/29/20 15:30 97 17 70 06/29/20 15:30 94 16 98/61 (73) 100 06/29/20 15:15 96 16 96/63 (74) 100 06/29/20 15:00 18 98/61 Mechanical Ventilator 80 06/29/20 15:00 18 Mechanical Ventilator 80 06/29/20 15:00 98 20 98/61 (73) 100 06/29/20 14:45 21 102/65 Mechanical Ventilator 80 06/29/20 14:45 21 Mechanical Ventilator 80 06/29/20 14:45 99 24 102/65 (77) 98 06/29/20 14:30 23 110/68 Mechanical Ventilator 80 06/29/20 14:30 23 Mechanical Ventilator 80 06/29/20 14:30 106 27 110/68 (82) 67 06/29/20 14:15 23 92/61 Mechanical Ventilator 80 06/29/20 14:10 80 06/29/20 14:00 80 06/29/20 14:00 98 16 94/62 (73) 100 06/29/20 14:00 16 94/62 Mechanical Ventilator 50 06/29/20 14:00 16 Mechanical Ventilator 50 06/29/20 13:30 98 17 99/60 (73) 100 06/29/20 13:01 99 25 50 06/29/20 13:00 17 95/62 Mechanical Ventilator 60 06/29/20 13:00 17 Mechanical Ventilator 60 06/29/20 13:00 99 16 95/62 (73) 100 06/29/20 12:30 101 17 98/64 (75) 100 06/29/20 12:00 Mechanical Ventilator Mechanical Ventilator 06/29/20 12:00 16 103/60 Mechanical Ventilator 60 06/29/20 12:00 16 Mechanical Ventilator 60 06/29/20 12:00 99.2 101 19 103/60 (74) 100 06/29/20 12:00 60 06/29/20 11:30 105 22 102/71 (81) 94 06/29/20 11:15 101 21 108/69 (82) 93 06/29/20 11:06 104 20 60 06/29/20 11:00 106 21 111/68 (82) 100 06/29/20 11:00 16 111/68 Mechanical Ventilator 60 06/29/20 11:00 16 Mechanical Ventilator 60 06/29/20 10:30 101 16 110/72 (85) 100 06/29/20 10:00 104 22 110/66 (81) 94 06/29/20 10:00 16 110/66 Mechanical Ventilator 70 06/29/20 10:00 16 Mechanical Ventilator 70 06/29/20 09:30 102 21 98/61 (73) 100 06/29/20 09:00 101 19 109/68 (82) 98 06/29/20 09:00 16 109/68 Mechanical Ventilator 70 06/29/20 09:00 16 Mechanical Ventilator 70 06/29/20 09:00 70 06/29/20 09:00 108 19 70 06/29/20 08:30 101 17 105/67 (80) 100 06/29/20 08:00 80 06/29/20 08:00 98.9 100 18 99/65 (76) 100 06/29/20 08:00 19 99/65 Mechanical Ventilator 80 06/29/20 08:00 19 Mechanical Ventilator 80 06/29/20 08:00 Mechanical Ventilator Mechanical Ventilator 06/29/20 07:43 17 Mechanical Ventilator 80 06/29/20 07:30 112 32 109/70 (83) 94 06/29/20 07:00 98 17 80 06/29/20 07:00 103 23 98/66 (77) 99 06/29/20 07:00 24 98/66 Mechanical Ventilator 70 06/29/20 06:30 103 18 105/64 (78) 99 2 06:15 105 18 105/63 (77) 98 06/29/20 06:00 86 20 06/29/20 06:00 16 91/63 Mechanical Ventilator 80 06/29/20 06:00 99.0 105 19 91/63 (72) 100 06/29/20 05:45 106 20 92/62 (72) 100 06/29/20 05:30 105 19 96/65 (75) 100 06/29/20 05:15 106 23 105/63 (77) 95 06/29/20 05:07 106 18 80 06/29/20 05:00 105 20 108/67 (81) 94 06/29/20 05:00 16 108/67 Mechanical Ventilator 80 06/29/20 04:45 105 20 96/62 (73) 89 06/29/20 04:30 103 21 97/71 (80) 95 06/29/20 04:15 103 18 104/60 (75) 96 06/29/20 04:12 18 108/59 Mechanical Ventilator 80 06/29/20 04:00 98.8 100 20 108/59 (75) 96 06/29/20 04:00 80 06/29/20 04:00 Mechanical Ventilator Mechanical Ventilator 06/29/20 03:45 105 25 109/66 (80) 99 06/29/20 03:30 101 17 105/62 (76) 96 06/29/20 03:22 101 28 80 06/29/20 03:21 103 06/29/20 03:15 102 18 97/67 (77) 96 06/29/20 03:00 16 Mechanical Ventilator 80 06/29/20 03:00 17 108/59 Mechanical Ventilator 80 06/29/20 03:00 101 18 104/65 (78) 94 06/29/20 02:45 102 18 96/64 (75) 94 06/29/20 02:30 104 17 107/59 (75) 94 06/29/20 02:15 98 16 105/56 (72) 96 06/29/20 02:00 16 80 06/29/20 02:00 16 104/65 Mechanical Ventilator 80 06/29/20 02:00 103 18 104/63 (77) 91 06/29/20 01:45 103 17 98/62 (74) 92 06/29/20 01:30 100 16 103/62 (76) 96 06/29/20 01:20 20 Mechanical Ventilator 80 06/29/20 01:20 20 89/57 Mechanical Ventilator 80 06/29/20 01:15 100 16 89/58 (68) 98 06/29/20 01:14 100 17 80 06/29/20 01:00 99 15 100 06/29/20 01:00 15 Mechanical Ventilator 80 06/29/20 01:00 15 88/57 Mechanical Ventilator 80 06/29/20 00:45 100 16 87/54 (65) 100 06/29/20 00:30 101 16 92/52 (65) 100 06/29/20 00:15 101 16 91/57 (68) 98 06/29/20 00:01 102 16 94/55 (68) 100 06/29/20 00:00 99.0 102 15 87/59 (68) 100 06/29/20 00:00 17 Mechanical Ventilator 80 06/29/20 00:00 17 92/52 Mechanical Ventilator 80 06/29/20 00:00 Mechanical Ventilator Mechanical Ventilator 06/28/20 23:45 105 15 91/58 (69) 100 06/28/20 23:30 104 22 80 06/28/20 23:30 104 17 95/62 (73) 100 06/28/20 23:15 103 16 92/58 (69) 100 06/28/20 23:09 104 06/28/20 23:00 104 17 89/57 (68) 100 06/28/20 23:00 18 Mechanical Ventilator 80 06/28/20 23:00 17 102/65 Mechanical Ventilator 80 06/28/20 22:45 104 16 90/65 (73) 100 06/28/20 22:30 105 18 95/58 (70) 100 06/28/20 22:15 105 17 97/58 (71) 06/28/20 22:00 106 17 91/55 (67) 06/28/20 22:00 17 Mechanical Ventilator 80 06/28/20 22:00 17 98/60 Mechanical Ventilator 80 06/28/20 21:45 106 17 87/62 (70) 06/28/20 21:30 107 17 91/54 (66) 100 06/28/20 21:15 107 17 96/60 (72) 100 06/28/20 21:00 18 Mechanical Ventilator 80 06/28/20 21:00 17 95/62 Mechanical Ventilator 80 06/28/20 21:00 110 19 96/59 (71) 100 06/28/20 20:45 113 19 100/60 (73) 100 06/28/20 20:30 112 24 80 06/28/20 20:30 113 23 108/59 (75) 100 06/28/20 20:15 110 20 105/65 (78) 99 06/28/20 20:00 80 06/28/20 20:00 19 Mechanical Ventilator 80 06/28/20 20:00 18 106/61 Mechanical Ventilator 80 06/28/20 20:00 99.3 112 22 106/61 (76) 98 06/28/20 20:00 Mechanical Ventilator Mechanical Ventilator 06/28/20 19:59 28 Mechanical Ventilator 80 06/28/20 19:45 111 19 103/60 (74) 100 06/28/20 19:45 111 06/28/20 19:30 112 21 102/58 (73) 100 06/28/20 19:15 114 21 105/62 (76) 98 06/28/20 19:06 112 24 80 06/28/20 19:00 110 17 106/63 (77) 100 06/28/20 19:00 15 Mechanical Ventilator 80 06/28/20 19:00 15 106/63 Mechanical Ventilator 80 06/28/20 19:00 110 17 106/63 (77) 100 06/28/20 18:00 15 Mechanical Ventilator 80 06/28/20 18:00 16 102/61 Mechanical Ventilator 80 06/28/20 18:00 109 21 102/61 (75) 100 Intake and Output 06/28/20 06/29/20 19:00 07:00 Intake Total 1399.16 ml 1540 ml Output Total 690 ml 400 ml Balance 709.16 ml 1140 ml Free Water 200 ml 470 ml IV Total 1199.16 ml 1070 ml Output Urine Total 690 ml 400 ml Stool Total 0 ml 0 ml Current Medications Medications (Trade) Dose Ordered Sig/Zelda Route PRN Reason Start Time Stop Time Status Last Admin Dose Admin Acetaminophen (Tylenol) 650 mg Q4H PRN NG Temp >100.5 06/29/20 10:15 07/29/20 10:14 Acetaminophen (Tylenol) 650 mg Q6H PRN NG Mild Pain (Pain Scale 1-3) 06/29/20 10:15 07/29/20 10:14 Chlorhexidine Gluconate (Inna-Hex 2%) 1 applic DAILY@2000 TOPIC 05/30/20 20:00 08/28/20 19:59 06/28/20 19:56 Dextrose (Dextrose 50%) 25 ml Q30M PRN IV Hypoglycemia 06/05/20 10:45 09/03/20 10:44 Dextrose (Dextrose 50%) 50 ml Q30M PRN IV Hypoglycemia 06/05/20 10:45 09/03/20 10:44 Dextrose/Sodium Chloride 1,000 ml @ 50 mls/hr Q20H IV 06/24/20 16:30 07/24/20 16:29 06/29/20 14:00 Docusate Sodium (Colace) 100 mg Q12HR GT 06/07/20 21:00 07/07/20 20:59 06/29/20 09:21 Enoxaparin Sodium (Lovenox) 40 mg DAILY SUBQ 05/30/20 10:00 08/28/20 09:59 06/29/20 09:22 Fentanyl Citrate 250 ml @ 1 mls/hr Q24H IV 06/29/20 00:45 07/01/20 00:44 06/29/20 04:12 Furosemide (Lasix) 40 mg DAILY IV 06/22/20 09:00 07/22/20 08:59 06/29/20 09:21 Insulin Aspart (NovoLOG) EVERY 6 HOURS SUBQ 06/07/20 00:00 09/03/20 11:59 06/24/20 18:00 Midazolam HCl 100 mg/Sodium Chloride 200 ml @ 2 mls/hr Q24H PRN IV sedation 06/29/20 15:25 07/01/20 15:24 06/29/20 15:50 Midodrine (Pro-Amatine) 10 mg Q8HR ORAL 06/14/20 14:00 09/12/20 13:59 06/29/20 13:44 Pantoprazole (Protonix) 40 mg Q12HR IVP 06/13/20 21:00 07/03/20 08:59 06/29/20 09:21 Polyethylene Glycol (Miralax) 17 gm BEDTIME GT 06/07/20 21:00 07/07/20 20:59 06/28/20 19:57 Vitamin D (Vitamin D) 5,000 unit DAILY GT 06/28/20 09:00 07/28/20 08:59 06/29/20 09:21 Laboratory Tests 06/29/20 03:45: White Blood Count 10.3, Red Blood Count 3.32L, Hemoglobin 9.5L, Hematocrit 31.2L , Mean Corpuscular Volume 94, Mean Corpuscular Hemoglobin 28.5, Mean Corpuscular Hemoglobin Concent 30.4L, Red Cell Distribution Width 16.7H, Platelet Count 229, Mean Platelet Volume 7.7, Neutrophils (%) (Auto) 63.2, Lymphocytes (%) (Auto) 25.8, Monocytes (%) (Auto) 4.6, Eosinophils (%) (Auto) 5.7H, Basophils (%) (Auto) 0.7, Sodium Level 138, Potassium Level 4.6, Chloride Level 99, Carbon Dioxide Level 37H, Anion Gap 2L, Blood Urea Nitrogen 13, Creatinine 0.5L, Estimat Glomerular Filtration Rate > 60, Glucose Level 107H, Calcium Level 8.6 Height (Feet): 5 Height (Inches): 5.00 Weight (Pounds): 308 General Appearance: no apparent distress EENT: other - Intubated on ventilator Cardiovascular: tachycardia Respiratory/Chest: decreased breath sounds Abdomen: distended Rigo Tyler MD Jun 29, 2020 17:47
--- NOTE | 2020-06-29 18:00 | NUR ---
NURSE NOTES: Pt cleaned and gownc hanged. No leakage noted from rectal tube. Pt remains on a cooling blanket.
--- NOTE | 2020-06-29 19:13 | NUR ---
NURSE HAND-OFF REPORT: Latest Vital Signs: Temperature 98.2 , Pulse 95 , B/P 97 /54 , Respiratory Rate 18 , O2 SAT 95 , Mechanical Ventilator, FiO2 70% . Vital Sign Comment: EKG Rhythm: Sinus Rhythm Rhythm change?: N MD Notified?: MD Response: Latest Meyers Fall Score: 70 Fall Risk: High Risk Safety Measures: Call light Within Reach, Bed Alarm Zone 1, Side Rails Side Rails x2, Bed position Low and Locked. Fall Precautions: Yellow Socks Report given to RAKEL James.
[2020-06-29] MEDS: Dyna-Hex 2% Top Sol 2oz TOPIC SCH (20:31)
[2020-06-29] MEDS: Miralax 17gm pkt GT SCH (20:32)
--- NOTE | 2020-06-29 23:24 | NUR ---
pt is sedated, remains hemodynamically stable. Blood sugar wnl. No insulin needed. Rectal tube irrigated. Will continue to monitor.
[2020-06-30] VITALS (53 sets, daily range): BP systolic 93–125; BP diastolic 49–80
--- NOTE | 2020-06-30 04:00 | NUR ---
fent gtt increased. Versed gtt decreased. Pt desaturated during hygiene care. Pt recovered quickly. Will continue to monitor.
[2020-06-30] MEDS: NovoLOG Insulin Flexpen SUBQ SCH ×3 (05:47→17:47)
[2020-06-30] MEDS: Midodrine 10mg tab ORAL SCH (06:20)
--- NOTE | 2020-06-30 06:35 | NUR ---
pt did not require insulin for BS 132 per sliding scale. Midodrine given. Pt suctioned via et tube and oral, lungs clear/dim. Covid resulted negative. Will continue to monitor.
[2020-06-30 06:38] LABS: BASOPHILS % (AUTO) 0.5 % (0.0-2.0); EOSINOPHILS % (AUTO) 5.9 % (0.0-3.0); HEMATOCRIT 31.7 % (37.0-47.0); HEMOGLOBIN 9.9 G/DL (12.0-16.0); LYMPHOCYTES % (AUTO) 23.2 % (20.0-45.0); MEAN CORPUSCULAR VOLUME 92 FL (80-99); MONOCYTES % (AUTO) 4.6 % (1.0-10.0); NEUTROPHILS % (AUTO) 65.8 % (45.0-75.0); PLATELET COUNT 242 K/UL (150-450); RED BLOOD COUNT 3.43 M/UL (4.20-5.40); RED CELL DISTRIBUTION WIDTH 17.1 % (11.6-14.8); WHITE BLOOD COUNT 9.2 K/UL (4.8-10.8)
--- NOTE | 2020-06-30 06:42 | Hematology/Onc Progress Note ---
Assessment/Plan Assessment/Plan # Thrombocytopenia is due to infection/underlying covid19+++ --> ABX ceftriaxone -->zosyn-->off --> on steriods likely cause of initial wbc --> per pulm --> plt 107->156-->192-->205 --> smear reviewed # Anemia due to chronic disease --> hgb goal is >7 --> transfuse prn --> ferritin is >1000 --> hold off on iron --> 10-->9.8->9-->8-->8.2-->9.4-->8.1-->9.9-->8.7-->9.7-->9.5 # Elevated ddimer due to covid19++ --> duplex legs is negative --> underlying covid rx # Hypoxia -> due to covid19 # Hypoxemia --> rx same as above # Respiratory failure --> on vent --> per pulm # Pneumonia due to COVID-19 virus --> per pulm rx -> sp remdesivir # Diabetes mellitus out of control --> hgb a1c goal <7 # Poor prognosis # Dvt ppx lovenox sq Appreciate consultation and bowen RN Subjective Allergies: Coded Allergies: No Known Allergies (Unverified , 05/28/20) All Systems: reviewed and negative except above Subjective 06/10 nv, on vent, with ogt, on fentanyl and versed, plt stable 06/11 nv, vent adjusted is on ogt, meds reviewed 06/12 nv, vent, meds noted, labs noted, no bleeding, hgb 10.4 06/13 nv, is on vent, meds reviewed, no bleeding, cbc reviewed 06/14 nv, on vent, tachy, labs reviewed, gross hematuria, febrile overnight, abx 06/17 nv, on vent, labs noted, no major changes, feeling better overnight 06/18 nv, meds reviewed, labs noted, no major events, hgb 8.6 06/19 nv, remains intubated, with fluids, labs reviewed, meds noted 06/20 nv, intubated remains on restraints, meds noted as well, as labs 06/21 nv, remains on vent, on restraints, meds reviewed, labs noted 06/22: covering Dr. Del Cid no acute events 06/23 sedated, on vent, nv, intubated, meds reviewed, versed 06/24 nv, on vent, no night sweats, no bleeding, remains in icu 06/25 nv, on vent, icu, meds noted, no bleeding, comfortable 2/ nv, on versed, icu, weaning parameters, labs noted 06/27 nv, overnight fighting vent, as per pulm fentanyl on board 06/28 nv, on vent, labs reviewed, as per pulm, meds noted 06/30 nv, icu, labs pending, is on fentanyl, versed, no new changes Objective Objective Current Medications Medications (Trade) Dose Ordered Sig/Zelda Route PRN Reason Start Time Stop Time Status Last Admin Dose Admin Acetaminophen (Tylenol) 650 mg Q4H PRN NG Temp >100.5 06/29/20 10:15 07/29/20 10:14 Acetaminophen (Tylenol) 650 mg Q6H PRN NG Mild Pain (Pain Scale 1-3) 06/29/20 10:15 07/29/20 10:14 Chlorhexidine Gluconate (Inna-Hex 2%) 1 applic DAILY@2000 TOPIC 05/30/20 20:00 08/28/20 19:59 06/29/20 20:31 Dextrose (Dextrose 50%) 25 ml Q30M PRN IV Hypoglycemia 06/05/20 10:45 09/03/20 10:44 Dextrose (Dextrose 50%) 50 ml Q30M PRN IV Hypoglycemia 06/05/20 10:45 09/03/20 10:44 Dextrose/Sodium Chloride 1,000 ml @ 50 mls/hr Q20H IV 06/24/20 16:30 07/24/20 16:29 06/29/20 14:00 Docusate Sodium (Colace) 100 mg Q12HR GT 06/07/20 21:00 07/07/20 20:59 06/29/20 20:32 Enoxaparin Sodium (Lovenox) 40 mg DAILY SUBQ 05/30/20 10:00 08/28/20 09:59 06/29/20 09:22 Fentanyl Citrate 250 ml @ 1 mls/hr Q24H IV 06/29/20 00:45 07/01/20 00:44 06/29/20 22:59 Furosemide (Lasix) 40 mg DAILY IV 06/22/20 09:00 07/22/20 08:59 06/29/20 09:21 Insulin Aspart (NovoLOG) EVERY 6 HOURS SUBQ 06/07/20 00:00 09/03/20 11:59 06/24/20 18:00 Midazolam HCl 100 mg/Sodium Chloride 200 ml @ 2 mls/hr Q24H PRN IV sedation 06/29/20 15:25 07/01/20 15:24 06/29/20 22:59 Midodrine (Pro-Amatine) 10 mg Q8HR ORAL 06/14/20 14:00 09/12/20 13:59 06/30/20 06:20 Pantoprazole (Protonix) 40 mg Q12HR IVP 06/13/20 21:00 07/03/20 08:59 06/29/20 20:32 Polyethylene Glycol (Miralax) 17 gm BEDTIME GT 06/07/20 21:00 07/07/20 20:59 06/29/20 20:32 Vitamin D (Vitamin D) 5,000 unit DAILY GT 06/28/20 09:00 07/28/20 08:59 06/29/20 09:21 Last 24 Hour Vital Signs Date Time Temp Pulse Resp B/P (MAP) Pulse Ox O2 Delivery O2 Flow Rate FiO2 06/30/20 05:45 102 20 103/62 (76) 100 06/30/20 05:30 113 27 123/80 (94) 82 06/30/20 05:15 99 19 113/70 (84) 88 06/30/20 05:00 106 30 120/68 (85) 91 06/30/20 04:00 97.2 06/30/20 04:00 Mechanical Ventilator Mechanical Ventilator 06/30/20 04:00 70 06/30/20 04:00 100 06/30/20 04:00 100 21 105/67 (80) 96 06/30/20 03:00 96 22 107/59 (75) 93 06/30/20 02:45 100 25 94/62 (73) 94 06/30/20 02:30 92 20 104/58 (73) 94 06/30/20 02:15 93 20 94/58 (70) 93 06/30/20 02:00 98 24 107/62 (77) 98 06/30/20 01:45 95 23 99/60 (73) 97 06/30/20 01:30 92 21 96/60 (72) 98 06/30/20 01:15 93 22 100/57 (71) 100 06/30/20 01:00 96 24 102/60 (74) 98 06/30/20 00:58 101 25 70 06/30/20 00:00 97.5 92 16 93/56 (68) 100 06/30/20 00:00 70 06/30/20 00:00 Mechanical Ventilator Mechanical Ventilator 06/30/20 00:00 100 06/29/20 23:15 94 17 95/58 (70) 100 06/29/20 23:00 91 17 97/61 (73) 100 06/29/20 22:59 19 06/29/20 22:59 19 100/55 Mechanical Ventilator 06/29/20 22:45 91 18 100/55 (70) 100 06/29/20 22:30 92 18 99/52 (68) 100 06/29/20 22:15 94 18 98/59 (72) 99 06/29/20 22:00 93 15 100/55 (70) 98 06/29/20 21:45 95 19 100/58 (72) 98 06/29/20 21:30 95 16 111/56 (74) 97 06/29/20 21:15 97 21 105/59 (74) 97 06/29/20 21:00 99 24 114/63 (80) 92 06/29/20 20:45 99 22 101/58 (72) 98 06/29/20 20:30 94 21 94/60 (71) 98 06/29/20 20:00 100 06/29/20 20:00 23 Non-Rebreather 06/29/20 20:00 23 105/58 Mechanical Ventilator 70 06/29/20 20:00 Mechanical Ventilator Mechanical Ventilator 06/29/20 20:00 97.5 96 20 105/58 (74) 96 06/29/20 20:00 70 06/29/20 19:45 95 18 95/63 (74) 94 06/29/20 19:30 93 17 98/62 (74) 98 06/29/20 19:15 95 17 97/58 (71) 96 06/29/20 19:05 100 22 70 06/29/20 19:00 95 18 97/59 (72) 95 06/29/20 19:00 18 Mechanical Ventilator 70 06/29/20 19:00 18 97/54 Mechanical Ventilator 70 06/29/20 19:00 95 18 97/59 (72) 95 06/29/20 18:00 17 Mechanical Ventilator 70 06/29/20 18:00 17 91/64 Mechanical Ventilator 70 06/29/20 18:00 99 17 91/64 (73) 95 06/29/20 17:30 94 15 98/60 (73) 96 06/29/20 17:10 92 18 70 06/29/20 17:00 95 21 97/55 (69) 95 06/29/20 17:00 15 Mechanical Ventilator 70 06/29/20 17:00 15 98/60 Mechanical Ventilator 70 06/29/20 16:30 94 15 90/63 (72) 97 06/29/20 16:00 Mechanical Ventilator Mechanical Ventilator 06/29/20 16:00 94 06/29/20 16:00 18 Mechanical Ventilator 70 06/29/20 16:00 18 97/64 Mechanical Ventilator 70 06/29/20 16:00 98.2 94 18 93/62 (72) 98 06/29/20 15:50 18 Mechanical Ventilator 70 06/29/20 15:45 95 18 100/66 (77) 97 06/29/20 15:30 97 17 70 06/29/20 15:30 94 16 98/61 (73) 100 06/29/20 15:15 96 16 96/63 (74) 100 06/29/20 15:00 18 98/61 Mechanical Ventilator 80 06/29/20 15:00 18 Mechanical Ventilator 80 06/29/20 15:00 98 20 98/61 (73) 100 06/29/20 14:45 21 102/65 Mechanical Ventilator 80 06/29/20 14:45 21 Mechanical Ventilator 80 06/29/20 14:45 99 24 102/65 (77) 98 06/29/20 14:30 23 110/68 Mechanical Ventilator 80 06/29/20 14:30 23 Mechanical Ventilator 80 06/29/20 14:30 106 27 110/68 (82) 67 06/29/20 14:15 23 92/61 Mechanical Ventilator 80 06/29/20 14:10 80 06/29/20 14:00 80 06/29/20 14:00 98 16 94/62 (73) 100 06/29/20 14:00 16 94/62 Mechanical Ventilator 50 06/29/20 14:00 16 Mechanical Ventilator 50 06/29/20 13:30 98 17 99/60 (73) 100 06/29/20 13:01 99 25 50 06/29/20 13:00 17 95/62 Mechanical Ventilator 60 06/29/20 13:00 17 Mechanical Ventilator 60 06/29/20 13:00 99 16 95/62 (73) 100 06/29/20 12:30 101 17 98/64 (75) 100 06/29/20 12:00 101 06/29/20 12:00 Mechanical Ventilator Mechanical Ventilator 06/29/20 12:00 16 103/60 Mechanical Ventilator 60 06/29/20 12:00 16 Mechanical Ventilator 60 06/29/20 12:00 99.2 101 19 103/60 (74) 100 06/29/20 12:00 60 06/29/20 11:30 105 22 102/71 (81) 94 06/29/20 11:15 101 21 108/69 (82) 93 06/29/20 11:06 104 20 60 06/29/20 11:00 106 21 111/68 (82) 100 06/29/20 11:00 16 111/68 Mechanical Ventilator 60 06/29/20 11:00 16 Mechanical Ventilator 60 06/29/20 10:30 101 16 110/72 (85) 100 06/29/20 10:00 104 22 110/66 (81) 94 06/29/20 10:00 16 110/66 Mechanical Ventilator 70 06/29/20 10:00 16 Mechanical Ventilator 70 06/29/20 09:30 102 21 98/61 (73) 100 06/29/20 09:00 101 19 109/68 (82) 98 06/29/20 09:00 16 109/68 Mechanical Ventilator 70 06/29/20 09:00 16 Mechanical Ventilator 70 06/29/20 09:00 70 06/29/20 09:00 108 19 70 06/29/20 08:30 101 17 105/67 (80) 100 06/29/20 08:00 80 06/29/20 08:00 98.9 100 18 99/65 (76) 100 06/29/20 08:00 100 06/29/20 08:00 19 99/65 Mechanical Ventilator 80 06/29/20 08:00 19 Mechanical Ventilator 80 06/29/20 08:00 Mechanical Ventilator Mechanical Ventilator 06/29/20 07:43 17 Mechanical Ventilator 80 06/29/20 07:30 112 32 109/70 (83) 94 06/29/20 07:00 98 17 80 06/29/20 07:00 103 23 98/66 (77) 99 06/29/20 07:00 24 98/66 Mechanical Ventilator 70 06/29/20 06:30 103 18 105/64 (78) 99 06/29/20 06:15 105 18 105/63 (77) 98 06/29/20 06:00 86 20 06/29/20 06:00 16 91/63 Mechanical Ventilator 80 06/29/20 06:00 99.0 105 19 91/63 (72) 100 06/29/20 05:45 106 20 92/62 (72) 100 06/29/20 05:30 105 19 96/65 (75) 100 06/29/20 05:15 106 23 105/63 (77) 95 06/29/20 05:07 106 18 80 06/29/20 05:00 105 20 108/67 (81) 94 06/29/20 05:00 16 108/67 Mechanical Ventilator 80 06/29/20 04:45 105 20 96/62 (73) 89 06/29/20 04:30 103 21 97/71 (80) 95 06/29/20 04:15 103 18 104/60 (75) 96 06/29/20 04:12 18 108/59 Mechanical Ventilator 80 06/29/20 04:00 98.8 100 20 108/59 (75) 96 06/29/20 04:00 80 06/29/20 04:00 Mechanical Ventilator Mechanical Ventilator 06/29/20 03:45 105 25 109/66 (80) 99 06/29/20 03:30 101 17 105/62 (76) 96 06/29/20 03:22 101 28 80 06/29/20 03:21 103 06/29/20 03:15 102 18 97/67 (77) 96 06/29/20 03:00 16 Mechanical Ventilator 80 06/29/20 03:00 17 108/59 Mechanical Ventilator 80 06/29/20 03:00 101 18 104/65 (78) 94 06/29/20 02:45 102 18 96/64 (75) 94 06/29/20 02:30 104 17 107/59 (75) 94 06/29/20 02:15 98 16 105/56 (72) 96 06/29/20 02:00 16 80 06/29/20 02:00 16 104/65 Mechanical Ventilator 80 06/29/20 02:00 103 18 104/63 (77) 91 06/29/20 01:45 103 17 98/62 (74) 92 06/29/20 01:30 100 16 103/62 (76) 96 06/29/20 01:20 20 Mechanical Ventilator 80 06/29/20 01:20 20 89/57 Mechanical Ventilator 80 06/29/20 01:15 100 16 89/58 (68) 98 06/29/20 01:14 100 17 80 06/29/20 01:00 99 15 100 06/29/20 01:00 15 Mechanical Ventilator 80 06/29/20 01:00 15 88/57 Mechanical Ventilator 80 06/29/20 00:45 100 16 87/54 (65) 100 06/29/20 00:30 101 16 92/52 (65) 100 06/29/20 00:15 101 16 91/57 (68) 98 06/29/20 00:01 102 16 94/55 (68) 100 06/29/20 00:00 99.0 102 15 87/59 (68) 100 06/29/20 00:00 17 Mechanical Ventilator 80 06/29/20 00:00 17 92/52 Mechanical Ventilator 80 06/29/20 00:00 Mechanical Ventilator Mechanical Ventilator 06/28/20 23:45 105 15 91/58 (69) 100 06/28/20 23:30 104 22 80 06/28/20 23:30 104 17 95/62 (73) 100 06/28/20 23:15 103 16 92/58 (69) 100 06/28/20 23:09 104 06/28/20 23:00 104 17 89/57 (68) 100 06/28/20 23:00 18 Mechanical Ventilator 80 06/28/20 23:00 17 102/65 Mechanical Ventilator 80 06/28/20 22:45 104 16 90/65 (73) 100 06/28/20 22:30 105 18 95/58 (70) 100 06/28/20 22:15 105 17 97/58 (71) 06/28/20 22:00 106 17 91/55 (67) 06/28/20 22:00 17 Mechanical Ventilator 80 06/28/20 22:00 17 98/60 Mechanical Ventilator 80 06/28/20 21:45 106 17 87/62 (70) 06/28/20 21:30 107 17 91/54 (66) 100 06/28/20 21:15 107 17 96/60 (72) 100 06/28/20 21:00 18 Mechanical Ventilator 80 06/28/20 21:00 17 95/62 Mechanical Ventilator 80 06/28/20 21:00 110 19 96/59 (71) 100 06/28/20 20:45 113 19 100/60 (73) 100 06/28/20 20:30 112 24 80 06/28/20 20:30 113 23 108/59 (75) 100 06/28/20 20:15 110 20 105/65 (78) 99 06/28/20 20:00 80 06/28/20 20:00 19 Mechanical Ventilator 80 06/28/20 20:00 18 106/61 Mechanical Ventilator 80 06/28/20 20:00 99.3 112 22 106/61 (76) 98 06/28/20 20:00 Mechanical Ventilator Mechanical Ventilator 06/28/20 19:59 28 Mechanical Ventilator 80 06/28/20 19:45 111 19 103/60 (74) 100 06/28/20 19:45 111 06/28/20 19:30 112 21 102/58 (73) 100 06/28/20 19:15 114 21 105/62 (76) 98 06/28/20 19:06 112 24 80 06/28/20 19:00 110 17 106/63 (77) 100 06/28/20 19:00 15 Mechanical Ventilator 80 06/28/20 19:00 15 106/63 Mechanical Ventilator 80 06/28/20 19:00 110 17 106/63 (77) 100 06/28/20 18:00 15 Mechanical Ventilator 80 06/28/20 18:00 16 102/61 Mechanical Ventilator 80 06/28/20 18:00 109 21 102/61 (75) 100 06/28/20 17:30 106 22 102/67 (79) 100 06/28/20 17:00 15 Mechanical Ventilator 80 06/28/20 17:00 15 87/63 Mechanical Ventilator 80 06/28/20 17:00 105 19 87/63 (71) 98 06/28/20 16:30 107 19 97/64 (75) 98 06/28/20 16:00 Mechanical Ventilator Mechanical Ventilator 06/28/20 16:00 80 06/28/20 16:00 15 Mechanical Ventilator 80 06/28/20 16:00 15 106/67 Mechanical Ventilator 80 06/28/20 16:00 106 06/28/20 16:00 98.7 106 18 106/67 (80) 100 06/28/20 15:20 107 17 80 06/28/20 15:00 104 16 102/56 (71) 95 06/28/20 15:00 15 Mechanical Ventilator 80 06/28/20 15:00 15 102/56 Mechanical Ventilator 80 06/28/20 14:30 100 14 107/63 (78) 95 06/28/20 14:00 17 Mechanical Ventilator 80 06/28/20 14:00 17 109/65 Mechanical Ventilator 80 06/28/20 14:00 97 22 106/73 (84) 93 06/28/20 13:52 15 104/64 Mechanical Ventilator 80 06/28/20 13:51 15 Mechanical Ventilator 80 06/28/20 13:30 94 17 98/64 (75) 100 06/28/20 13:00 15 Mechanical Ventilator 80 06/28/20 13:00 16 84/68 Mechanical Ventilator 80 06/28/20 13:00 94 17 88/64 (72) 99 06/28/20 12:00 Mechanical Ventilator Mechanical Ventilator 06/28/20 12:00 97.9 93 15 92/64 (73) 99 06/28/20 12:00 93 06/28/20 12:00 80 06/28/20 12:00 15 Mechanical Ventilator 80 06/28/20 12:00 15 96/64 Mechanical Ventilator 80 06/28/20 11:15 101 19 80 06/28/20 11:00 93 16 90/67 (75) 06/28/20 11:00 15 Mechanical Ventilator 80 06/28/20 11:00 16 88/65 Mechanical Ventilator 80 06/28/20 10:00 94 18 99/66 (77) 100 06/28/20 10:00 15 Mechanical Ventilator 80 06/28/20 10:00 15 99/63 Mechanical Ventilator 80 06/28/20 09:00 15 Mechanical Ventilator 80 06/28/20 09:00 15 92/58 Mechanical Ventilator 80 06/28/20 09:00 93 16 91/62 (72) 98 06/28/20 08:30 94 15 90/63 (72) 97 06/28/20 08:00 80 06/28/20 08:00 98.6 96 15 92/63 (73) 98 06/28/20 08:00 15 Mechanical Ventilator 80 06/28/20 08:00 15 89/62 Mechanical Ventilator 80 06/28/20 08:00 Mechanical Ventilator Mechanical Ventilator 06/28/20 08:00 96 06/28/20 07:10 95 15 80 06/28/20 07:00 22 Mechanical Ventilator 80 06/28/20 07:00 103 14 99/70 (80) 93 Intake and Output 06/29/20 06/30/20 19:00 07:00 Intake Total 1125.66 ml 1098 ml Output Total 1320 ml 715 ml Balance -194.34 ml 383 ml Free Water 100 ml 60 ml IV Total 905.66 ml 1038 ml Other 120 ml Output Urine Total 1320 ml 695 ml Stool Total 20 ml Labs Test 06/27/20 09:01 06/27/20 12:06 06/27/20 17:42 06/28/20 00:11 Arterial Blood pH 7.294 (7.350-7.450) Arterial Blood Partial Pressure CO2 80.3 mmHg (35.0-45.0) Arterial Blood Partial Pressure O2 54.7 mmHg (75.0-100.0) Arterial Blood HCO3 38.1 mmol/L (22.0-26.0) Arterial Blood Oxygen Saturation 84.7 % (95-100) Arterial Blood Base Excess 9.5 (-2-2) Jeremiah Test Positive POC Whole Blood Glucose 106 MG/DL (74-106) 113 MG/DL (74-106) Test 06/28/20 02:50 06/28/20 06:15 06/28/20 12:25 06/28/20 17:33 White Blood Count 12.3 K/UL (4.8-10.8) Red Blood Count 3.42 M/UL (4.20-5.40) Hemoglobin 9.7 G/DL (12.0-16.0) Hematocrit 32.0 % (37.0-47.0) Mean Corpuscular Volume 94 FL (80-99) Mean Corpuscular Hemoglobin 28.5 PG (27.0-31.0) Mean Corpuscular Hemoglobin Concent 30.4 G/DL (32.0-36.0) Red Cell Distribution Width 16.7 % (11.6-14.8) Platelet Count 253 K/UL (150-450) Mean Platelet Volume 8.7 FL (6.5-10.1) Neutrophils (%) (Auto) 79.0 % (45.0-75.0) Lymphocytes (%) (Auto) 14.0 % (20.0-45.0) Monocytes (%) (Auto) 2.4 % (1.0-10.0) Eosinophils (%) (Auto) 3.8 % (0.0-3.0) Basophils (%) (Auto) 0.7 % (0.0-2.0) Sodium Level 137 MMOL/L (136-145) Potassium Level 4.6 MMOL/L (3.5-5.1) Chloride Level 98 MMOL/L (98-107) Carbon Dioxide Level 35 MMOL/L (21-32) Anion Gap 5 mmol/L (5-15) Blood Urea Nitrogen 22 mg/dL (7-18) Creatinine 0.7 MG/DL (0.55-1.30) Estimat Glomerular Filtration Rate > 60 mL/min (>60) Glucose Level 124 MG/DL (74-106) Calcium Level 9.2 MG/DL (8.5-10.1) POC Whole Blood Glucose 105 MG/DL (74-106) 116 MG/DL (74-106) Test 06/28/20 23:42 06/29/20 03:45 06/29/20 12:32 06/30/20 04:45 POC Whole Blood Glucose 106 MG/DL (74-106) 118 MG/DL (74-106) White Blood Count 10.3 K/UL (4.8-10.8) Red Blood Count 3.32 M/UL (4.20-5.40) Hemoglobin 9.5 G/DL (12.0-16.0) Hematocrit 31.2 % (37.0-47.0) Mean Corpuscular Volume 94 FL (80-99) Mean Corpuscular Hemoglobin 28.5 PG (27.0-31.0) Mean Corpuscular Hemoglobin Concent 30.4 G/DL (32.0-36.0) Red Cell Distribution Width 16.7 % (11.6-14.8) Platelet Count 229 K/UL (150-450) Mean Platelet Volume 7.7 FL (6.5-10.1) Neutrophils (%) (Auto) 63.2 % (45.0-75.0) Lymphocytes (%) (Auto) 25.8 % (20.0-45.0) Monocytes (%) (Auto) 4.6 % (1.0-10.0) Eosinophils (%) (Auto) 5.7 % (0.0-3.0) Basophils (%) (Auto) 0.7 % (0.0-2.0) Sodium Level 138 MMOL/L (136-145) Potassium Level 4.6 MMOL/L (3.5-5.1) Chloride Level 99 MMOL/L (98-107) Carbon Dioxide Level 37 MMOL/L (21-32) Anion Gap 2 mmol/L (5-15) Blood Urea Nitrogen 13 mg/dL (7-18) Creatinine 0.5 MG/DL (0.55-1.30) Estimat Glomerular Filtration Rate > 60 mL/min (>60) Glucose Level 107 MG/DL (74-106) Calcium Level 8.6 MG/DL (8.5-10.1) Height (Feet): 5 Height (Inches): 5.00 Weight (Pounds): 308 Objective GeNL: nv Pulm: vent++ CV: rrr Abd: soft, nt, nd Ext: no cce Myron Condon MD Jun 30, 2020 06:42
--- NOTE | 2020-06-30 07:11 | NUR ---
NURSE NOTES: Report received from RAKEL James. Pt sedated RASS -2. Pt is orally intubated ETT 7.0, 23cm @ the lip line. Ventilator settings: AC 15, TV 600, Fio2 70%, Peep 8; O2sat reads 98% on cardiac cath technologist. SR on the monitor. Pt has an left nares NGT- currently NPO d/t bed not operating properly and not being able to elevate HOB to prevent aspiration during feeding. Lennon catheter in place, draining straw colored urine. Rectal tube with liquid brown stool in collection bag noted. Skin warm and dry; upper extremities edematous. LINDA PICC line intact running Fentanyl at 150 mcg/hr, Versed 10 mg/hr, and D5 1/2 NS at 50 ml/hr. Pt is on a cooling blanket. Bed locked and in lowest position. will resume plan of care.
[2020-06-30 07:18] LABS: ALANINE AMINOTRANSFERASE 23 U/L (12-78); ALBUMIN 2.3 G/DL (3.4-5.0); ALBUMIN/GLOBULIN RATIO 0.4 (1.0-2.7); ALKALINE PHOSPHATASE 84 U/L (46-116); ANION GAP 3 mmol/L (5-15); ASPARTATE AMINO TRANSFERASE 34 U/L (15-37); BILIRUBIN,TOTAL 1.7 MG/DL (0.2-1.0); BLOOD UREA NITROGEN 8 mg/dL (7-18); CALCIUM 9.2 MG/DL (8.5-10.1); CARBON DIOXIDE 39 MMOL/L (21-32); CHLORIDE 96 MMOL/L (98-107); CREATININE 0.4 MG/DL (0.55-1.30); PHOSPHORUS 2.9 MG/DL (2.5-4.9); POTASSIUM 3.9 MMOL/L (3.5-5.1); SODIUM 138 MMOL/L (136-145)
[2020-06-30 07:19] LABS: BILIRUBIN,DIRECT 0.4 MG/DL (0.0-0.3)
--- NOTE | 2020-06-30 07:25 | NUR ---
RESPIRATORY NOTE: PT received on AC/VC: 15, 600 70%, +8. Alarms are on and audible. Vent circuit is secure and out of the way. Airway is secure and patent. No s/s of respiratory distress noted at this time. Will continue to closely monitor.
--- NOTE | 2020-06-30 08:09 | NUR ---
RESPIRATORY NOTE: ABG drawn at this time. Results reported to Becca BOGGS
[2020-06-30] MEDS: Midazolam HCl 50mg/10ml vial 100 MG in NS 180 ML IV PRN ×2 (08:24→17:50)
--- NOTE | 2020-06-30 09:03 | General Progress Note ---
Subjective Constitutional: Reports: weakness Allergies: Coded Allergies: No Known Allergies (Unverified , 05/28/20) All Systems: reviewed and negative except above Subjective intubated sedated ng in icu Objective Last 24 Hour Vital Signs Date Time Temp Pulse Resp B/P (MAP) Pulse Ox O2 Delivery O2 Flow Rate FiO2 06/30/20 08:30 107 21 120/64 (82) 95 06/30/20 08:24 16 Mechanical Ventilator 70 06/30/20 08:00 98.6 107 27 109/54 (72) 96 06/30/20 08:00 70 06/30/20 07:00 101 25 97/60 (72) 99 06/30/20 06:45 101 24 98/56 (70) 100 06/30/20 06:30 86 20 06/30/20 06:30 102 21 98/58 (71) 100 06/30/20 06:15 103 21 97/63 (74) 99 06/30/20 06:00 101 22 102/61 (75) 98 06/30/20 05:45 102 20 103/62 (76) 100 06/30/20 05:30 113 27 123/80 (94) 82 06/30/20 05:15 99 19 113/70 (84) 88 06/30/20 05:00 106 30 120/68 (85) 91 06/30/20 04:00 97.2 06/30/20 04:00 Mechanical Ventilator Mechanical Ventilator 06/30/20 04:00 70 06/30/20 04:00 100 06/30/20 04:00 100 21 105/67 (80) 96 06/30/20 03:00 96 22 107/59 (75) 93 06/30/20 02:45 100 25 94/62 (73) 94 06/30/20 02:30 92 20 104/58 (73) 94 06/30/20 02:15 93 20 94/58 (70) 93 06/30/20 02:00 98 24 107/62 (77) 98 06/30/20 01:45 95 23 99/60 (73) 97 06/30/20 01:30 92 21 96/60 (72) 98 06/30/20 01:15 93 22 100/57 (71) 100 06/30/20 01:00 96 24 102/60 (74) 98 06/30/20 00:58 101 25 70 06/30/20 00:00 97.5 92 16 93/56 (68) 100 06/30/20 00:00 70 06/30/20 00:00 Mechanical Ventilator Mechanical Ventilator 06/30/20 00:00 100 06/29/20 23:15 94 17 95/58 (70) 100 06/29/20 23:00 91 17 97/61 (73) 100 06/29/20 22:59 19 06/29/20 22:59 19 100/55 Mechanical Ventilator 06/29/20 22:45 91 18 100/55 (70) 100 06/29/20 22:30 92 18 99/52 (68) 100 06/29/20 22:15 94 18 98/59 (72) 99 06/29/20 22:00 93 15 100/55 (70) 98 06/29/20 21:45 95 19 100/58 (72) 98 06/29/20 21:30 95 16 111/56 (74) 97 06/29/20 21:15 97 21 105/59 (74) 97 06/29/20 21:00 99 24 114/63 (80) 92 06/29/20 20:45 99 22 101/58 (72) 98 06/29/20 20:30 94 21 94/60 (71) 98 06/29/20 20:00 100 06/29/20 20:00 23 Non-Rebreather 06/29/20 20:00 23 105/58 Mechanical Ventilator 70 06/29/20 20:00 Mechanical Ventilator Mechanical Ventilator 06/29/20 20:00 97.5 96 20 105/58 (74) 96 06/29/20 20:00 70 06/29/20 19:45 95 18 95/63 (74) 94 06/29/20 19:30 93 17 98/62 (74) 98 06/29/20 19:15 95 17 97/58 (71) 96 06/29/20 19:05 100 22 70 06/29/20 19:00 95 18 97/59 (72) 95 06/29/20 19:00 18 Mechanical Ventilator 70 06/29/20 19:00 18 97/54 Mechanical Ventilator 70 06/29/20 19:00 95 18 97/59 (72) 95 06/29/20 18:00 17 Mechanical Ventilator 70 06/29/20 18:00 17 91/64 Mechanical Ventilator 70 06/29/20 18:00 99 17 91/64 (73) 95 06/29/20 17:30 94 15 98/60 (73) 96 06/29/20 17:10 92 18 70 06/29/20 17:00 95 21 97/55 (69) 95 06/29/20 17:00 15 Mechanical Ventilator 70 06/29/20 17:00 15 98/60 Mechanical Ventilator 70 06/29/20 16:30 94 15 90/63 (72) 97 06/29/20 16:00 Mechanical Ventilator Mechanical Ventilator 06/29/20 16:00 94 06/29/20 16:00 18 Mechanical Ventilator 70 06/29/20 16:00 18 97/64 Mechanical Ventilator 70 06/29/20 16:00 98.2 94 18 93/62 (72) 98 06/29/20 15:50 18 Mechanical Ventilator 70 06/29/20 15:45 95 18 100/66 (77) 97 06/29/20 15:30 97 17 70 06/29/20 15:30 94 16 98/61 (73) 100 06/29/20 15:15 96 16 96/63 (74) 100 06/29/20 15:00 18 98/61 Mechanical Ventilator 80 06/29/20 15:00 18 Mechanical Ventilator 80 06/29/20 15:00 98 20 98/61 (73) 100 06/29/20 14:45 21 102/65 Mechanical Ventilator 80 06/29/20 14:45 21 Mechanical Ventilator 80 06/29/20 14:45 99 24 102/65 (77) 98 06/29/20 14:30 23 110/68 Mechanical Ventilator 80 06/29/20 14:30 23 Mechanical Ventilator 80 06/29/20 14:30 106 27 110/68 (82) 67 06/29/20 14:15 23 92/61 Mechanical Ventilator 80 06/29/20 14:10 80 06/29/20 14:00 80 06/29/20 14:00 98 16 94/62 (73) 100 06/29/20 14:00 16 94/62 Mechanical Ventilator 50 06/29/20 14:00 16 Mechanical Ventilator 50 06/29/20 13:30 98 17 99/60 (73) 100 06/29/20 13:01 99 25 50 06/29/20 13:00 17 95/62 Mechanical Ventilator 60 06/29/20 13:00 17 Mechanical Ventilator 60 06/29/20 13:00 99 16 95/62 (73) 100 06/29/20 12:30 101 17 98/64 (75) 100 06/29/20 12:00 101 06/29/20 12:00 Mechanical Ventilator Mechanical Ventilator 06/29/20 12:00 16 103/60 Mechanical Ventilator 60 06/29/20 12:00 16 Mechanical Ventilator 60 06/29/20 12:00 99.2 101 19 103/60 (74) 100 06/29/20 12:00 60 06/29/20 11:30 105 22 102/71 (81) 94 06/29/20 11:15 101 21 108/69 (82) 93 06/29/20 11:06 104 20 60 06/29/20 11:00 106 21 111/68 (82) 100 06/29/20 11:00 16 111/68 Mechanical Ventilator 60 06/29/20 11:00 16 Mechanical Ventilator 60 06/29/20 10:30 101 16 110/72 (85) 100 06/29/20 10:00 104 22 110/66 (81) 94 06/29/20 10:00 16 110/66 Mechanical Ventilator 70 06/29/20 10:00 16 Mechanical Ventilator 70 06/29/20 09:30 102 21 98/61 (73) 100 Intake and Output 06/29/20 06/30/20 19:00 07:00 Intake Total 1125.66 ml 1183 ml Output Total 1320 ml 730 ml Balance -194.34 ml 453 ml Free Water 100 ml 60 ml IV Total 905.66 ml 1123 ml Other 120 ml Output Urine Total 1320 ml 710 ml Stool Total 20 ml Laboratory Tests 06/29/20 12:32: POC Whole Blood Glucose 118H 06/30/20 04:45: White Blood Count 9.2, Red Blood Count 3.43L, Hemoglobin 9.9L, Hematocrit 31.7L, Mean Corpuscular Volume 92, Mean Corpuscular Hemoglobin 28.7, Mean Corpuscular Hemoglobin Concent 31.1L, Red Cell Distribution Width 17.1H, Platelet Count 242, Mean Platelet Volume 8.5, Neutrophils (%) (Auto) 65.8, Lymphocytes (%) (Auto) 23.2, Monocytes (%) (Auto) 4.6, Eosinophils (%) (Auto) 5.9H, Basophils (%) (Auto) 0.5, Sodium Level 138, Potassium Level 3.9, Chloride Level 96L, Carbon Dioxide Level 39H, Anion Gap 3L, Blood Urea Nitrogen 8, Creatinine 0.4L, Estimat Glomerular Filtration Rate > 60, Glucose Level 114H, Calcium Level 9.2, Phosphorus Level 2.9, Magnesium Level 1.4L, Total Bilirubin 1.7H, Direct Bilirubin 0.4H, Aspartate Amino Transf (AST/SGOT) 34, Alanine Aminotransferase (ALT/SGPT) 23, Alkaline Phosphatase 84, C-Reactive Protein, Quantitative 7.6H, Pro-B-Type Natriuretic Peptide 1365H, Total Protein 7.5, Albumin 2.3L, Globulin 5.2, Albumin/Globulin Ratio 0.4L 06/30/20 08:09: Arterial Blood pH 7.320L, Arterial Blood Partial Pressure CO2 80.7*H, Arterial Blood Partial Pressure O2 54.4L, Arterial Blood HCO3 40.6*H, Arterial Blood Oxyg en Saturation 84.8*L, Arterial Blood Base Excess 12.2*H, Jeremiah Test Positive Height (Feet): 5 Height (Inches): 5.00 Weight (Pounds): 308 General Appearance: lethargic EENT: normal ENT inspection Neck: normal alignment Cardiovascular: normal peripheral pulses, normal rate, regular rhythm Respiratory/Chest: chest wall non-tender, lungs clear, normal breath sounds Abdomen: normal bowel sounds, non tender, soft Extremities: normal inspection Edema: 1+ Arm (L), 1+ Arm (R), 1+ Leg (L), 1+ Leg (R), 1+ Pedal (L), 1+ Pedal (R), 1+ Generalized Edema: trace edema Neurologic: motor weakness Skin: normal pigmentation, warm/dry Assessment/Plan Problem List: (1) Hypoxia ICD Codes: R09.02 - Hypoxemia SNOMED: 772599395 (2) Respiratory failure ICD Codes: J96.90 - Respiratory failure, unspecified, unspecified whether with hypoxia or hypercapnia SNOMED: 614246206 (3) Respiratory distress ICD Codes: R06.03 - Acute respiratory distress; J12.82 - Pneumonia due to coronavirus disease 2019 SNOMED: 073831419 (4) Pneumonia due to COVID-19 virus ICD Codes: U07.1 - COVID-19; J12.82 - Pneumonia due to coronavirus disease 2019 SNOMED: 459816008738989848 Status: unchanged Assessment/Plan: vent abx id pulm f/u cbc bmp am Tank Del Cid DO Jun 30, 2020 09:03
--- NOTE | 2020-06-30 09:30 | NUR ---
NURSE NOTES: Pt repositioned for comfort. Oral care done. Pt remains on Fentanyl and Versed to maintain sedated at RASS -2. No distress noted at this time.
[2020-06-30] MEDS: Docusate 100mg/10ml Liq GT SCH ×2 (09:37→20:04)
[2020-06-30] MEDS: Pantoprazole Inj IVP SCH ×2 (09:37→20:05)
[2020-06-30] MEDS: Enoxaparin 40mg Inj SUBQ SCH (09:38)
[2020-06-30] MEDS: Vitamin D 1000 units Tab GT SCH (09:39)
[2020-06-30] MEDS: D5 1/2NS 1,000 ML IV SCH (10:00)
--- NOTE | 2020-06-30 10:03 | Nephrology Progress Note ---
Assessment/Plan Problem List: (1) DEVENDRA (acute kidney injury) (2) Morbid obesity (3) Diabetes mellitus out of control (4) Pneumonia due to COVID-19 virus (5) Respiratory failure Assessment Acute renal failure Obstructive uropathy, clogged Lennon Respiratory failure COVID-19 pneumonia Morbid obesity Plan June 30: Status quo. Labs reviewed. Abnormal electrolytes addressed. Remains full code. Remains on ventilator. Magnesium sulfate 4 gram IVPB given. June 29: Full code. Intubated on ventilator. Labs reviewed. Stable from renal standpoint of view. Continue per consultants. June 28: Remains full code. Remains intubated on ventilator. Labs reviewed. Vitamin D supplement ordered. Continue to monitor renal parameters. Continue per consultants. June 27: Remains full code. Intubated on ventilator. Labs reviewed. Abnormal electrolyte addressed. Continue to monitor renal parameters and electrolytes. Continue per consultants. June 26: Labs reviewed. Remains full code. Remains intubated. Back on NGT feeding. Continue to monitor renal parameters. June 25: Labs reviewed. Renal parameters stable. Remains full code. Due to positional status patient could not be fed via NG tube. Starting TPN? Is being entertained. Continue per consultants. June 24: Labs reviewed. Renal parameters stable. Remains full code. Remains intubated on ventilator. Continue per consultants. June 23: Labs reviewed. Renal parameters stable. Discussed with RN. Abnormal electrolyte addressed. Remains full code. Remains on ventilator. Continue per consultants. June 22: Labs reviewed. Low potassium addressed. Discussed with RAKEL Moran. Patient full code. Remains on ventilator. Continue to monitor renal parameters. June 21. Labs reviewed. Abnormal electrolyte addressed. Full code. Remains on ventilator. Medication list reviewed. Continue per pulmonary management. DC IV fluid, resume Lasix daily, check chest x-ray. June 20: Labs reviewed. Abnormal electrolytes. Patient remains full code. Continue per consultants. Noted and addressed June 19: Labs reviewed. Abnormal electrolytes noted and addressed. Remains intubated on ventilator. Remains full code. June 18: Labs reviewed. Remains intubated on ventilator. Full code. Abnormal electrolyte addressed. Continue as is. June 17: Labs reviewed. Abnormal electrolytes addressed. Patient remains full code and intubated on ventilator. Continue per consultants. Renal parameters are within normal limits. June 16: Labs reviewed. Potassium chloride replaced. Remains full code. Remains intubated on ventilator. Continue per consultants. Continue to monitor renal parameters. June 15: Labs reviewed. Serum creatinine 1. Stable from renal standpoint to view. Continue per consultants. June 14: Labs reviewed. Full code. Serum creatinine of 3.5 down to 1.4. Low potassium addressed. Continue per current treatment plan. Continue to monitor renal parameters. Midodrine started. Albumin bolus given. Previously: DC Lasix drip Increase Protonix dose Monitor renal parameters, electrolytes Per orders Subjective ROS Limited/Unobtainable: Yes Objective Objective Last 24 Hour Vital Signs Date Time Temp Pulse Resp B/P (MAP) Pulse Ox O2 Delivery O2 Flow Rate FiO2 06/30/20 09:30 107 26 125/66 (85) 97 06/30/20 09:00 107 20 112/62 (79) 99 06/30/20 08:30 107 21 120/64 (82) 95 06/30/20 08:24 16 Mechanical Ventilator 70 06/30/20 08:00 98.6 107 27 109/54 (72) 96 06/30/20 08:00 70 06/30/20 07:00 101 25 97/60 (72) 99 06/30/20 06:45 101 24 98/56 (70) 100 06/30/20 06:30 86 20 06/30/20 06:30 102 21 98/58 (71) 100 06/30/20 06:15 103 21 97/63 (74) 99 06/30/20 06:00 101 22 102/61 (75) 98 06/30/20 05:45 102 20 103/62 (76) 100 06/30/20 05:30 113 27 123/80 (94) 82 06/30/20 05:15 99 19 113/70 (84) 88 06/30/20 05:00 106 30 120/68 (85) 91 06/30/20 04:00 97.2 06/30/20 04:00 Mechanical Ventilator Mechanical Ventilator 06/30/20 04:00 70 06/30/20 04:00 100 06/30/20 04:00 100 21 105/67 (80) 96 06/30/20 03:00 96 22 107/59 (75) 93 06/30/20 02:45 100 25 94/62 (73) 94 06/30/20 02:30 92 20 104/58 (73) 94 06/30/20 02:15 93 20 94/58 (70) 93 06/30/20 02:00 98 24 107/62 (77) 98 06/30/20 01:45 95 23 99/60 (73) 97 06/30/20 01:30 92 21 96/60 (72) 98 06/30/20 01:15 93 22 100/57 (71) 100 06/30/20 01:00 96 24 102/60 (74) 98 06/30/20 00:58 101 25 70 06/30/20 00:00 97.5 92 16 93/56 (68) 100 06/30/20 00:00 70 06/30/20 00:00 Mechanical Ventilator Mechanical Ventilator 06/30/20 00:00 100 06/29/20 23:15 94 17 95/58 (70) 100 06/29/20 23:00 91 17 97/61 (73) 100 06/29/20 22:59 19 06/29/20 22:59 19 100/55 Mechanical Ventilator 06/29/20 22:45 91 18 100/55 (70) 100 06/29/20 22:30 92 18 99/52 (68) 100 06/29/20 22:15 94 18 98/59 (72) 99 06/29/20 22:00 93 15 100/55 (70) 98 06/29/20 21:45 95 19 100/58 (72) 98 06/29/20 21:30 95 16 111/56 (74) 97 06/29/20 21:15 97 21 105/59 (74) 97 06/29/20 21:00 99 24 114/63 (80) 92 06/29/20 20:45 99 22 101/58 (72) 98 06/29/20 20:30 94 21 94/60 (71) 98 06/29/20 20:00 100 06/29/20 20:00 23 Non-Rebreather 06/29/20 20:00 23 105/58 Mechanical Ventilator 70 06/29/20 20:00 Mechanical Ventilator Mechanical Ventilator 06/29/20 20:00 97.5 96 20 105/58 (74) 96 06/29/20 20:00 70 06/29/20 19:45 95 18 95/63 (74) 94 06/29/20 19:30 93 17 98/62 (74) 98 06/29/20 19:15 95 17 97/58 (71) 96 06/29/20 19:05 100 22 70 06/29/20 19:00 95 18 97/59 (72) 95 06/29/20 19:00 18 Mechanical Ventilator 70 06/29/20 19:00 18 97/54 Mechanical Ventilator 70 06/29/20 19:00 95 18 97/59 (72) 95 06/29/20 18:00 17 Mechanical Ventilator 70 06/29/20 18:00 17 91/64 Mechanical Ventilator 70 06/29/20 18:00 99 17 91/64 (73) 95 06/29/20 17:30 94 15 98/60 (73) 96 06/29/20 17:10 92 18 70 06/29/20 17:00 95 21 97/55 (69) 95 06/29/20 17:00 15 Mechanical Ventilator 70 06/29/20 17:00 15 98/60 Mechanical Ventilator 70 06/29/20 16:30 94 15 90/63 (72) 97 06/29/20 16:00 Mechanical Ventilator Mechanical Ventilator 06/29/20 16:00 94 06/29/20 16:00 18 Mechanical Ventilator 70 06/29/20 16:00 18 97/64 Mechanical Ventilator 70 06/29/20 16:00 98.2 94 18 93/62 (72) 98 06/29/20 15:50 18 Mechanical Ventilator 70 06/29/20 15:45 95 18 100/66 (77) 97 06/29/20 15:30 97 17 70 06/29/20 15:30 94 16 98/61 (73) 100 06/29/20 15:15 96 16 96/63 (74) 100 06/29/20 15:00 18 98/61 Mechanical Ventilator 80 06/29/20 15:00 18 Mechanical Ventilator 80 06/29/20 15:00 98 20 98/61 (73) 100 06/29/20 14:45 21 102/65 Mechanical Ventilator 80 06/29/20 14:45 21 Mechanical Ventilator 80 06/29/20 14:45 99 24 102/65 (77) 98 06/29/20 14:30 23 110/68 Mechanical Ventilator 80 06/29/20 14:30 23 Mechanical Ventilator 80 06/29/20 14:30 106 27 110/68 (82) 67 06/29/20 14:15 23 92/61 Mechanical Ventilator 80 06/29/20 14:10 80 06/29/20 14:00 80 06/29/20 14:00 98 16 94/62 (73) 100 06/29/20 14:00 16 94/62 Mechanical Ventilator 50 06/29/20 14:00 16 Mechanical Ventilator 50 06/29/20 13:30 98 17 99/60 (73) 100 06/29/20 13:01 99 25 50 06/29/20 13:00 17 95/62 Mechanical Ventilator 60 06/29/20 13:00 17 Mechanical Ventilator 60 06/29/20 13:00 99 16 95/62 (73) 100 06/29/20 12:30 101 17 98/64 (75) 100 06/29/20 12:00 101 06/29/20 12:00 Mechanical Ventilator Mechanical Ventilator 06/29/20 12:00 16 103/60 Mechanical Ventilator 60 06/29/20 12:00 16 Mechanical Ventilator 60 06/29/20 12:00 99.2 101 19 103/60 (74) 100 06/29/20 12:00 60 06/29/20 11:30 105 22 102/71 (81) 94 06/29/20 11:15 101 21 108/69 (82) 93 06/29/20 11:06 104 20 60 06/29/20 11:00 106 21 111/68 (82) 100 06/29/20 11:00 16 111/68 Mechanical Ventilator 60 06/29/20 11:00 16 Mechanical Ventilator 60 06/29/20 10:30 101 16 110/72 (85) 100 Intake and Output 06/29/20 06/30/20 19:00 07:00 Intake Total 1125.66 ml 1183 ml Output Total 1320 ml 730 ml Balance -194.34 ml 453 ml Free Water 100 ml 60 ml IV Total 905.66 ml 1123 ml Other 120 ml Output Urine Total 1320 ml 710 ml Stool Total 20 ml Current Medications Medications (Trade) Dose Ordered Sig/Zelda Route PRN Reason Start Time Stop Time Status Last Admin Dose Admin Acetaminophen (Tylenol) 650 mg Q4H PRN NG Temp >100.5 06/29/20 10:15 07/29/20 10:14 Acetaminophen (Tylenol) 650 mg Q6H PRN NG Mild Pain (Pain Scale 1-3) 06/29/20 10:15 07/29/20 10:14 Chlorhexidine Gluconate (Inna-Hex 2%) 1 applic DAILY@2000 TOPIC 05/30/20 20:00 08/28/20 19:59 06/29/20 20:31 Dextrose (Dextrose 50%) 25 ml Q30M PRN IV Hypoglycemia 06/05/20 10:45 09/03/20 10:44 Dextrose (Dextrose 50%) 50 ml Q30M PRN IV Hypoglycemia 06/05/20 10:45 09/03/20 10:44 Dextrose/Sodium Chloride 1,000 ml @ 50 mls/hr Q20H IV 06/24/20 16:30 07/24/20 16:29 06/30/20 10:00 Docusate Sodium (Colace) 100 mg Q12HR GT 06/07/20 21:00 07/07/20 20:59 06/30/20 09:37 Enoxaparin Sodium (Lovenox) 40 mg DAILY SUBQ 05/30/20 10:00 08/28/20 09:59 06/30/20 09:38 Fentanyl Citrate 250 ml @ 1 mls/hr Q24H IV 06/29/20 00:45 07/01/20 00:44 06/29/20 22:59 Furosemide (Lasix) 40 mg DAILY IV 06/22/20 09:00 07/22/20 08:59 06/30/20 09:39 Insulin Aspart (NovoLOG) EVERY 6 HOURS SUBQ 06/07/20 00:00 09/03/20 11:59 06/24/20 18:00 Magnesium Sulfate 4 mg/Sodium Chloride 550.008 ml @ 137.502 mls/hr ONCE IV 06/30/20 12:00 06/30/20 15:59 Midazolam HCl 100 mg/Sodium Chloride 200 ml @ 2 mls/hr Q24H PRN IV sedation 06/29/20 15:25 07/01/20 15:24 06/30/20 08:24 Midodrine (Pro-Amatine) 10 mg Q8HR GT 06/30/20 14:00 09/12/20 13:59 Pantoprazole (Protonix) 40 mg Q12HR IVP 06/13/20 21:00 07/03/20 08:59 06/30/20 09:37 Polyethylene Glycol (Miralax) 17 gm BEDTIME GT 06/07/20 21:00 07/07/20 20:59 06/29/20 20:32 Vitamin D (Vitamin D) 5,000 unit DAILY GT 06/28/20 09:00 07/28/20 08:59 06/30/20 09:39 Laboratory Tests 06/29/20 12:32: POC Whole Blood Glucose 118H 06/30/20 04:45: White Blood Count 9.2, Red Blood Count 3.43L, Hemoglobin 9.9L, Hematocrit 31.7L, Mean Corpuscular Volume 92, Mean Corpuscular Hemoglobin 28.7, Mean Corpuscular Hemoglobin Concent 31.1L, Red Cell Distribution Width 17.1H, Platelet Count 242, Mean Platelet Volume 8.5, Neutrophils (%) (Auto) 65.8, Lymphocytes (%) (Auto) 23.2, Monocytes (%) (Auto) 4.6, Eosinophils (%) (Auto) 5.9H, Basophils (%) (Auto) 0.5, Sodium Level 138, Potassium Level 3.9, Chloride Level 96L, Carbon Dioxide Level 39H, Anion Gap 3L, Blood Urea Nitrogen 8, Creatinine 0.4L, Estimat Glomerular Filtration Rate > 60, Glucose Level 114H, Calcium Level 9.2, Phosphorus Level 2.9, Magnesium Level 1.4L, Total Bilirubin 1.7H, Direct Bilirubin 0.4H, Aspartate Amino Transf (AST/SGOT) 34, Alanine Aminotransferase (ALT/SGPT) 23, Alkaline Phosphatase 84, C-Reactive Protein, Quantitative 7.6H, Pro-B-Type Natriuretic Peptide 1365H, Total Protein 7.5, Albumin 2.3L, Globulin 5.2, Albumin/Globulin Ratio 0.4L 06/30/20 08:09: Arterial Blood pH 7.320L, Arterial Blood Partial Pressure CO2 80.7*H, Arterial Blood Partial Pressure O2 54.4L, Arterial Blood HCO3 40.6*H, Arterial Blood Oxygen Saturation 84.8*L, Arterial Blood Base Excess 12.2*H, Jeremiah Test Positive Height (Feet): 5 Height (Inches): 5.00 Weight (Pounds): 308 EENT: other - Intubated on ventilator Cardiovascular: tachycardia Respiratory/Chest: decreased breath sounds Abdomen: distended Rigo Tyler MD Jun 30, 2020 10:03
--- NOTE | 2020-06-30 11:23 | Pulmonology Progress Note ---
Subjective ROS Limited/Unobtainable: Yes Interval Events: Remains intubated Constitutional: Denies: fever HEENT: Repors: no symptoms Respiratory: Reports: no symptoms Cardiovascular: Reports: no symptoms Gastrointestinal/Abdominal: Reports: no symptoms Genitourinary: Reports: no symptoms Allergies: Coded Allergies: No Known Allergies (Unverified , 05/28/20) All Systems: reviewed and negative except above Objective Last 24 Hour Vital Signs Date Time Temp Pulse Resp B/P (MAP) Pulse Ox O2 Delivery O2 Flow Rate FiO2 06/30/20 11:00 18 Mechanical Ventilator 70 06/30/20 11:00 18 120/73 Mechanical Ventilator 70 06/30/20 11:00 104 21 120/73 (89) 98 06/30/20 10:00 107 20 123/80 (94) 99 06/30/20 10:00 18 Mechanical Ventilator 70 06/30/20 10:00 18 127/81 Mechanical Ventilator 70 06/30/20 09:30 107 26 125/66 (85) 97 06/30/20 09:00 107 20 112/62 (79) 99 06/30/20 09:00 18 Mechanical Ventilator 70 06/30/20 09:00 18 114/68 Mechanical Ventilator 70 06/30/20 08:30 107 21 120/64 (82) 95 06/30/20 08:24 16 Mechanical Ventilator 70 06/30/20 08:00 98.6 107 27 109/54 (72) 96 06/30/20 08:00 Mechanical Ventilator Mechanical Ventilator 06/30/20 08:00 70 06/30/20 08:00 107 06/30/20 08:00 22 130/59 Mechanical Ventilator 70 06/30/20 07:00 22 Mechanical Ventilator 70 06/30/20 07:00 22 94/59 Mechanical Ventilator 70 06/30/20 07:00 101 25 97/60 (72) 99 06/30/20 06:45 101 24 98/56 (70) 100 06/30/20 06:30 86 20 06/30/20 06:30 102 21 98/58 (71) 100 06/30/20 06:15 103 21 97/63 (74) 99 06/30/20 06:00 101 22 102/61 (75) 98 06/30/20 05:45 102 20 103/62 (76) 100 06/30/20 05:30 113 27 123/80 (94) 82 06/30/20 05:15 99 19 113/70 (84) 88 06/30/20 05:00 106 30 120/68 (85) 91 06/30/20 04:00 97.2 06/30/20 04:00 Mechanical Ventilator Mechanical Ventilator 06/30/20 04:00 70 06/30/20 04:00 100 06/30/20 04:00 100 21 105/67 (80) 96 06/30/20 03:00 96 22 107/59 (75) 93 06/30/20 02:45 100 25 94/62 (73) 94 06/30/20 02:30 92 20 104/58 (73) 94 06/30/20 02:15 93 20 94/58 (70) 93 06/30/20 02:00 98 24 107/62 (77) 98 06/30/20 01:45 95 23 99/60 (73) 97 06/30/20 01:30 92 21 96/60 (72) 98 06/30/20 01:15 93 22 100/57 (71) 100 06/30/20 01:00 96 24 102/60 (74) 98 06/30/20 00:58 101 25 70 06/30/20 00:00 97.5 92 16 93/56 (68) 100 06/30/20 00:00 70 06/30/20 00:00 Mechanical Ventilator Mechanical Ventilator 06/30/20 00:00 100 06/29/20 23:15 94 17 95/58 (70) 100 06/29/20 23:00 91 17 97/61 (73) 100 06/29/20 22:59 19 06/29/20 22:59 19 100/55 Mechanical Ventilator 06/29/20 22:45 91 18 100/55 (70) 100 06/29/20 22:30 92 18 99/52 (68) 100 06/29/20 22:15 94 18 98/59 (72) 99 06/29/20 22:00 93 15 100/55 (70) 98 06/29/20 21:45 95 19 100/58 (72) 98 06/29/20 21:30 95 16 111/56 (74) 97 06/29/20 21:15 97 21 105/59 (74) 97 06/29/20 21:00 99 24 114/63 (80) 92 06/29/20 20:45 99 22 101/58 (72) 98 06/29/20 20:30 94 21 94/60 (71) 98 06/29/20 20:00 100 06/29/20 20:00 23 Non-Rebreather 06/29/20 20:00 23 105/58 Mechanical Ventilator 70 06/29/20 20:00 Mechanical Ventilator Mechanical Ventilator 06/29/20 20:00 97.5 96 20 105/58 (74) 96 06/29/20 20:00 70 06/29/20 19:45 95 18 95/63 (74) 94 06/29/20 19:30 93 17 98/62 (74) 98 06/29/20 19:15 95 17 97/58 (71) 96 06/29/20 19:05 100 22 70 06/29/20 19:00 95 18 97/59 (72) 95 06/29/20 19:00 18 Mechanical Ventilator 70 06/29/20 19:00 18 97/54 Mechanical Ventilator 70 06/29/20 19:00 95 18 97/59 (72) 95 06/29/20 18:00 17 Mechanical Ventilator 70 06/29/20 18:00 17 91/64 Mechanical Ventilator 70 06/29/20 18:00 99 17 91/64 (73) 95 06/29/20 17:30 94 15 98/60 (73) 96 06/29/20 17:10 92 18 70 06/29/20 17:00 95 21 97/55 (69) 95 06/29/20 17:00 15 Mechanical Ventilator 70 06/29/20 17:00 15 98/60 Mechanical Ventilator 70 06/29/20 16:30 94 15 90/63 (72) 97 06/29/20 16:00 Mechanical Ventilator Mechanical Ventilator 06/29/20 16:00 94 06/29/20 16:00 18 Mechanical Ventilator 70 06/29/20 16:00 18 97/64 Mechanical Ventilator 70 06/29/20 16:00 98.2 94 18 93/62 (72) 98 06/29/20 15:50 18 Mechanical Ventilator 70 06/29/20 15:45 95 18 100/66 (77) 97 06/29/20 15:30 97 17 70 06/29/20 15:30 94 16 98/61 (73) 100 06/29/20 15:15 96 16 96/63 (74) 100 06/29/20 15:00 18 98/61 Mechanical Ventilator 80 06/29/20 15:00 18 Mechanical Ventilator 80 06/29/20 15:00 98 20 98/61 (73) 100 06/29/20 14:45 21 102/65 Mechanical Ventilator 80 06/29/20 14:45 21 Mechanical Ventilator 80 06/29/20 14:45 99 24 102/65 (77) 98 06/29/20 14:30 23 110/68 Mechanical Ventilator 80 06/29/20 14:30 23 Mechanical Ventilator 80 06/29/20 14:30 106 27 110/68 (82) 67 06/29/20 14:15 23 92/61 Mechanical Ventilator 80 06/29/20 14:10 80 06/29/20 14:00 80 06/29/20 14:00 98 16 94/62 (73) 100 06/29/20 14:00 16 94/62 Mechanical Ventilator 50 06/29/20 14:00 16 Mechanical Ventilator 50 06/29/20 13:30 98 17 99/60 (73) 100 06/29/20 13:01 99 25 50 06/29/20 13:00 17 95/62 Mechanical Ventilator 60 06/29/20 13:00 17 Mechanical Ventilator 60 06/29/20 13:00 99 16 95/62 (73) 100 06/29/20 12:30 101 17 98/64 (75) 100 06/29/20 12:00 101 06/29/20 12:00 Mechanical Ventilator Mechanical Ventilator 06/29/20 12:00 16 103/60 Mechanical Ventilator 60 06/29/20 12:00 16 Mechanical Ventilator 60 06/29/20 12:00 99.2 101 19 103/60 (74) 100 06/29/20 12:00 60 06/29/20 11:30 105 22 102/71 (81) 94 Intake and Output 06/29/20 06/30/20 19:00 07:00 Intake Total 1125.66 ml 1183 ml Output Total 1320 ml 730 ml Balance -194.34 ml 453 ml Free Water 100 ml 60 ml IV Total 905.66 ml 1123 ml Other 120 ml Output Urine Total 1320 ml 710 ml Stool Total 20 ml General Appearance: no acute distress HEENT: normocephalic Respiratory: chest wall non-tender Cardiovascular: normal peripheral pulses Abdomen: normal bowel sounds Microbiology Date/Time Source Procedure Growth Status 06/28/20 09:55 Nasopharynx Coronavirus COVID-19 PCR ([facility]) - Final Complete Laboratory Tests 06/29/20 12:32: POC Whole Blood Glucose 118H 06/30/20 04:45: White Blood Count 9.2, Red Blood Count 3.43L, Hemoglobin 9.9L, Hematocrit 31.7L, Mean Corpuscular Volume 92, Mean Corpuscular Hemoglobin 28.7, Mean Corpuscular Hemoglobin Concent 31.1L, Red Cell Distribution Width 17.1H, Platelet Count 242, Mean Platelet Volume 8.5, Neutrophils (%) (Auto) 65.8, Lymphocytes (%) (Auto) 23.2, Monocytes (%) (Auto) 4.6, Eosinophils (%) (Auto) 5.9H, Basophils (%) (Auto) 0.5, Sodium Level 138, Potassium Level 3.9, Chloride Level 96L, Carbon Dioxide Level 39H, Anion Gap 3L, Blood Urea Nitrogen 8, Creatinine 0.4L, Estimat Glomerular Filtration Rate > 60, Glucose Level 114H, Calcium Level 9.2, Phosphorus Level 2.9, Magnesium Level 1.4L, Total Bilirubin 1.7H, Direct Bilirubin 0.4H, Aspartate Amino Transf (AST/SGOT) 34, Alanine Aminotransferase (ALT/SGPT) 23, Alkaline Phosphatase 84, C-Reactive Protein, Quantitative 7.6H, Pro-B-Type Natriuretic Peptide 1365H, Total Protein 7.5, Albumin 2.3L, Globulin 5.2, Albumin/Globulin Ratio 0.4L 06/30/20 08:09: Arterial Blood pH 7.320L, Arterial Blood Partial Pressure CO2 80.7*H, Arterial Blood Partial Pressure O2 54.4L, Arterial Blood HCO3 40.6*H, Arterial Blood Oxygen Saturation 84.8*L, Arterial Blood Base Excess 12.2*H, Jeremiah Test Positive Current Medications Medications (Trade) Dose Ordered Sig/Zelda Route PRN Reason Start Time Stop Time Status Last Admin Dose Admin Acetaminophen (Tylenol) 650 mg Q4H PRN NG Temp >100.5 06/29/20 10:15 07/29/20 10:14 Acetaminophen (Tylenol) 650 mg Q6H PRN NG Mild Pain (Pain Scale 1-3) 06/29/20 10:15 07/29/20 10:14 Chlorhexidine Gluconate (Inna-Hex 2%) 1 applic DAILY@2000 TOPIC 05/30/20 20:00 08/28/20 19:59 06/29/20 20:31 Dextrose (Dextrose 50%) 25 ml Q30M PRN IV Hypoglycemia 06/05/20 10:45 09/03/20 10:44 Dextrose (Dextrose 50%) 50 ml Q30M PRN IV Hypoglycemia 06/05/20 10:45 09/03/20 10:44 Dextrose/Sodium Chloride 1,000 ml @ 50 mls/hr Q20H IV 06/24/20 16:30 07/24/20 16:29 06/30/20 10:00 Docusate Sodium (Colace) 100 mg Q12HR GT 06/07/20 21:00 07/07/20 20:59 06/30/20 09:37 Enoxaparin Sodium (Lovenox) 40 mg DAILY SUBQ 05/30/20 10:00 08/28/20 09:59 06/30/20 09:38 Fentanyl Citrate 250 ml @ 1 mls/hr Q24H IV 06/29/20 00:45 07/01/20 00:44 06/29/20 22:59 Furosemide (Lasix) 40 mg DAILY IV 06/22/20 09:00 07/22/20 08:59 06/30/20 09:39 Insulin Aspart (NovoLOG) EVERY 6 HOURS SUBQ 06/07/20 00:00 09/03/20 11:59 06/24/20 18:00 Magnesium Sulfate 4 mg/Sodium Chloride 550.008 ml @ 137.502 mls/hr ONCE IV 06/30/20 12:00 06/30/20 15:59 Midazolam HCl 100 mg/Sodium Chloride 200 ml @ 2 mls/hr Q24H PRN IV sedation 06/29/20 15:25 07/01/20 15:24 06/30/20 08:24 Midodrine (Pro-Amatine) 10 mg Q8HR GT 06/30/20 14:00 09/12/20 13:59 Pantoprazole (Protonix) 40 mg Q12HR IVP 06/13/20 21:00 07/03/20 08:59 06/30/20 09:37 Polyethylene Glycol (Miralax) 17 gm BEDTIME GT 06/07/20 21:00 07/07/20 20:59 06/29/20 20:32 Vitamin D (Vitamin D) 5,000 unit DAILY GT 06/28/20 09:00 07/28/20 08:59 06/30/20 09:39 Assessment/Plan Assessment/Plan 1. COVID-19 pneumonia -Intubated 05/28/20 - We will continue broad-spectrum antibiotics. -s/p solumedrol, Rocephin -Continue PEEP 6 - Peak airway pressures high; 45 - FiO2 100% -> 90 ->80->60 ->40 ->80 ->100 ->80 -60%; -will continue OGT feeding -Continue sedation; Need to keep patient completely sedated. 2. Hyponatremia -Per primary MD 3. Elevated inflammatory markers - has high D dimer; Lovenox on hold due to hematuria 4. Decrease PEEP Continue weaning efforts May need trach Discussed with surgery Currently FiO2 too high for safe tracheostomy; however slowly improving Long discussion with family who wish to wean her off the oxygen eventually instead of trach. Trach if "necessary" per family. Discussed again with niece. She was advised regarding poor prognosis. Discussed with RN. Noted bioethics evaluation. Javier Nava MD Jun 30, 2020 11:23
--- NOTE | 2020-06-30 11:30 | NUR ---
NURSE NOTES: Dr Nava at bedside assessing pt. Updated him on pts current condition. No new orders given at this time. Will attempt to decrease PEEP and FiO2 a little bit more today.
--- NOTE | 2020-06-30 11:40 | NUR ---
NURSE NOTES: RT made aware to decrease PEEP to 7
--- NOTE | 2020-06-30 11:47 | NUR ---
RESPIRATORY NOTE: PEEP decreased to 7. Patient tolerating well. RN notified. Will continue to monitor.
[2020-06-30] MEDS ORDERED: SODIUM CHLORIDE IV SCH (12:00)
[2020-06-30] MEDS ORDERED: MAGNESIUM SULFATE IV SCH (12:00)
--- NOTE | 2020-06-30 12:00 | NUR ---
NURSE NOTES: O2sat 100% after decreasing PEEP to 7. Pt tolerating vent change well
--- NOTE | 2020-06-30 13:35 | Surgery Progress Note ---
Surgery Progress Note Subjective Additional Comments able to tolerate weaning better now on 70% and peep 7 possible trach soon Objective Last 24 Hour Vital Signs Date Time Temp Pulse Resp B/P (MAP) Pulse Ox O2 Delivery O2 Flow Rate FiO2 06/30/20 13:00 20 Mechanical Ventilator 70 06/30/20 13:00 20 111/53 Mechanical Ventilator 70 06/30/20 13:00 100 18 111/53 (72) 100 06/30/20 12:00 Mechanical Ventilator Mechanical Ventilator 06/30/20 12:00 100 06/30/20 12:00 20 Mechanical Ventilator 70 06/30/20 12:00 20 110/58 Mechanical Ventilator 70 06/30/20 12:00 97.5 102 18 110/58 (75) 100 06/30/20 12:00 70 06/30/20 11:00 18 Mechanical Ventilator 70 06/30/20 11:00 18 120/73 Mechanical Ventilator 70 06/30/20 11:00 104 21 120/73 (89) 98 06/30/20 10:00 107 20 123/80 (94) 99 06/30/20 10:00 18 Mechanical Ventilator 70 06/30/20 10:00 18 127/81 Mechanical Ventilator 70 06/30/20 09:30 107 26 125/66 (85) 97 06/30/20 09:00 107 20 112/62 (79) 99 06/30/20 09:00 18 Mechanical Ventilator 70 06/30/20 09:00 18 114/68 Mechanical Ventilator 70 06/30/20 08:30 107 21 120/64 (82) 95 06/30/20 08:24 16 Mechanical Ventilator 70 06/30/20 08:00 98.6 107 27 109/54 (72) 96 06/30/20 08:00 Mechanical Ventilator Mechanical Ventilator 06/30/20 08:00 70 06/30/20 08:00 107 06/30/20 08:00 22 130/59 Mechanical Ventilator 70 06/30/20 07:00 22 Mechanical Ventilator 70 06/30/20 07:00 22 94/59 Mechanical Ventilator 70 06/30/20 07:00 101 25 97/60 (72) 99 06/30/20 06:45 101 24 98/56 (70) 100 06/30/20 06:30 86 20 06/30/20 06:30 102 21 98/58 (71) 100 06/30/20 06:15 103 21 97/63 (74) 99 06/30/20 06:00 101 22 102/61 (75) 98 06/30/20 05:45 102 20 103/62 (76) 100 06/30/20 05:30 113 27 123/80 (94) 82 06/30/20 05:15 99 19 113/70 (84) 88 06/30/20 05:00 106 30 120/68 (85) 91 06/30/20 04:00 97.2 06/30/20 04:00 Mechanical Ventilator Mechanical Ventilator 06/30/20 04:00 70 06/30/20 04:00 100 06/30/20 04:00 100 21 105/67 (80) 96 06/30/20 03:00 96 22 107/59 (75) 93 06/30/20 02:45 100 25 94/62 (73) 94 06/30/20 02:30 92 20 104/58 (73) 94 06/30/20 02:15 93 20 94/58 (70) 93 06/30/20 02:00 98 24 107/62 (77) 98 06/30/20 01:45 95 23 99/60 (73) 97 06/30/20 01:30 92 21 96/60 (72) 98 06/30/20 01:15 93 22 100/57 (71) 100 06/30/20 01:00 96 24 102/60 (74) 98 06/30/20 00:58 101 25 70 06/30/20 00:00 97.5 92 16 93/56 (68) 100 06/30/20 00:00 70 06/30/20 00:00 Mechanical Ventilator Mechanical Ventilator 06/30/20 00:00 100 06/29/20 23:15 94 17 95/58 (70) 100 06/29/20 23:00 91 17 97/61 (73) 100 06/29/20 22:59 19 06/29/20 22:59 19 100/55 Mechanical Ventilator 06/29/20 22:45 91 18 100/55 (70) 100 06/29/20 22:30 92 18 99/52 (68) 100 06/29/20 22:15 94 18 98/59 (72) 99 06/29/20 22:00 93 15 100/55 (70) 98 06/29/20 21:45 95 19 100/58 (72) 98 06/29/20 21:30 95 16 111/56 (74) 97 06/29/20 21:15 97 21 105/59 (74) 97 06/29/20 21:00 99 24 114/63 (80) 92 06/29/20 20:45 99 22 101/58 (72) 98 06/29/20 20:30 94 21 94/60 (71) 98 06/29/20 20:00 100 06/29/20 20:00 23 Non-Rebreather 06/29/20 20:00 23 105/58 Mechanical Ventilator 70 06/29/20 20:00 Mechanical Ventilator Mechanical Ventilator 06/29/20 20:00 97.5 96 20 105/58 (74) 96 06/29/20 20:00 70 06/29/20 19:45 95 18 95/63 (74) 94 06/29/20 19:30 93 17 98/62 (74) 98 06/29/20 19:15 95 17 97/58 (71) 96 06/29/20 19:05 100 22 70 06/29/20 19:00 95 18 97/59 (72) 95 06/29/20 19:00 18 Mechanical Ventilator 70 06/29/20 19:00 18 97/54 Mechanical Ventilator 70 06/29/20 19:00 95 18 97/59 (72) 95 06/29/20 18:00 17 Mechanical Ventilator 70 06/29/20 18:00 17 91/64 Mechanical Ventilator 70 06/29/20 18:00 99 17 91/64 (73) 95 06/29/20 17:30 94 15 98/60 (73) 96 06/29/20 17:10 92 18 70 06/29/20 17:00 95 21 97/55 (69) 95 06/29/20 17:00 15 Mechanical Ventilator 70 06/29/20 17:00 15 98/60 Mechanical Ventilator 70 06/29/20 16:30 94 15 90/63 (72) 97 06/29/20 16:00 Mechanical Ventilator Mechanical Ventilator 06/29/20 16:00 94 06/29/20 16:00 18 Mechanical Ventilator 70 06/29/20 16:00 18 97/64 Mechanical Ventilator 70 06/29/20 16:00 98.2 94 18 93/62 (72) 98 06/29/20 15:50 18 Mechanical Ventilator 70 06/29/20 15:45 95 18 100/66 (77) 97 06/29/20 15:30 97 17 70 06/29/20 15:30 94 16 98/61 (73) 100 06/29/20 15:15 96 16 96/63 (74) 100 06/29/20 15:00 18 98/61 Mechanical Ventilator 80 06/29/20 15:00 18 Mechanical Ventilator 80 06/29/20 15:00 98 20 98/61 (73) 100 06/29/20 14:45 21 102/65 Mechanical Ventilator 80 06/29/20 14:45 21 Mechanical Ventilator 80 06/29/20 14:45 99 24 102/65 (77) 98 06/29/20 14:30 23 110/68 Mechanical Ventilator 80 06/29/20 14:30 23 Mechanical Ventilator 80 06/29/20 14:30 106 27 110/68 (82) 67 06/29/20 14:15 23 92/61 Mechanical Ventilator 80 06/29/20 14:10 80 06/29/20 14:00 80 06/29/20 14:00 98 16 94/62 (73) 100 06/29/20 14:00 16 94/62 Mechanical Ventilator 50 06/29/20 14:00 16 Mechanical Ventilator 50 I&O Intake and Output 06/29/20 06/30/20 19:00 07:00 Intake Total 1125.66 ml 1183 ml Output Total 1320 ml 730 ml Balance -194.34 ml 453 ml Free Water 100 ml 60 ml IV Total 905.66 ml 1123 ml Other 120 ml Output Urine Total 1320 ml 710 ml Stool Total 20 ml Dressing: saturated Cardiovascular: RSR Respiratory: decreased breath sounds Abdomen: soft, non-tender, present bowel sounds Extremities: edema, no tenderness, no cyanosis Laboratory Tests Test 06/30/20 04:45 06/30/20 08:09 White Blood Count 9.2 K/UL (4.8-10.8) Red Blood Count 3.43 M/UL (4.20-5.40) L Hemoglobin 9.9 G/DL (12.0-16.0) L Hematocrit 31.7 % (37.0-47.0) L Mean Corpuscular Volume 92 FL (80-99) Mean Corpuscular Hemoglobin 28.7 PG (27.0-31.0) Mean Corpuscular Hemoglobin Concent 31.1 G/DL (32.0-36.0) L Red Cell Distribution Width 17.1 % (11.6-14.8) H Platelet Count 242 K/UL (150-450) Mean Platelet Volume 8.5 FL (6.5-10.1) Neutrophils (%) (Auto) 65.8 % (45.0-75.0) Lymphocytes (%) (Auto) 23.2 % (20.0-45.0) Monocytes (%) (Auto) 4.6 % (1.0-10.0) Eosinophils (%) (Auto) 5.9 % (0.0-3.0) H Basophils (%) (Auto) 0.5 % (0.0-2.0) Sodium Level 138 MMOL/L (136-145) Potassium Level 3.9 MMOL/L (3.5-5.1) Chloride Level 96 MMOL/L (98-107) L Carbon Dioxide Level 39 MMOL/L (21-32) H Anion Gap 3 mmol/L (5-15) L Blood Urea Nitrogen 8 mg/dL (7-18) Creatinine 0.4 MG/DL (0.55-1.30) L Estimat Glomerular Filtration Rate > 60 mL/min (>60) Glucose Level 114 MG/DL (74-106) H Calcium Level 9.2 MG/DL (8.5-10.1) Phosphorus Level 2.9 MG/DL (2.5-4.9) Magnesium Level 1.4 MG/DL (1.8-2.4) L Total Bilirubin 1.7 MG/DL (0.2-1.0) H Direct Bilirubin 0.4 MG/DL (0.0-0.3) H Aspartate Amino Transf (AST/SGOT) 34 U/L (15-37) Alanine Aminotransferase (ALT/SGPT) 23 U/L (12-78) Alkaline Phosphatase 84 U/L (46-116) C-Reactive Protein, Quantitative 7.6 mg/dL (0.00-0.90) H Pro-B-Type Natriuretic Peptide 1365 pg/mL (0-125) H Total Protein 7.5 G/DL (6.4-8.2) Albumin 2.3 G/DL (3.4-5.0) L Globulin 5.2 g/dL Albumin/Globulin Ratio 0.4 (1.0-2.7) L Arterial Blood pH 7.320 (7.350-7.450) Arterial Blood Partial Pressure CO2 80.7 mmHg (35.0-45.0) *H Arterial Blood Partial Pressure O2 54.4 mmHg (75.0-100.0) L Arterial Blood HCO3 40.6 mmol/L (22.0-26.0) *H Arterial Blood Oxygen Saturation 84.8 % (95-100) *L Arterial Blood Base Excess 12.2 (-2-2) *H Jeremiah Test Positive Plan Problems: (1) Respiratory distress (2) Respiratory failure Assessment & Plan: 50-year-old female Covid positive respiratory insufficiency intubated on ventilatory support declining. Leukocytosis increase oxygen r equirement. Vent settings per pulmonology reviewed identified and agree. Unfortunately further surgical invention at this time is not appropriate as patient is not a candidate and her current condition. Prognosis overall guarded. Tracheostomy can be considered in the future if recovering or shows improvement and requires unable to be weaned from ventilator support. Currently okay for nutritional optimization with NG tube. Will need significant monitoring for decubitus formation given patient's size and condition. Okay for air mattress tolerated. Turn every 2 hours as tolerated. Patient is otherwise critically ill and blood pressure labile. Will need to monitor closely.Bilateral infiltrates are again demonstrated. Stable tube and line positions. will need trach will need to wean vent first (3) Hypoxia (4) Pneumonia due to COVID-19 virus Assessment & Plan: ++ as per pulm and ID (5) Diabetes mellitus out of control Assessment & Plan: DAILY ESTIMATED NEEDS: Needs based on Critical care, obesity 11-14kcal/kg actual body wt (140kg) kcals/kg 2159-6977 total kcals 1.5-2.0g prot/kg IBW (64.5kg) g protein/kg 96-129 g total protein 25-30ml/kg abw (83kg) mL/kg 8686-5143 total fluid mLs NUTRITION DIAGNOSIS: Swallowing difficulty R/T respiratory failure as evidenced by pt orally intubated and sedated, on OGT feeds. CURRENT TF: Vital 1.2 goal of 60ml/hr ENTERAL NUTRITION RECOMMENDATIONS: Vital AF 1.2 @ 60ml/hr x 24 hrs to provide 1440ml, 1728kcal, 108g prot, 1168ml free water * Maintain current critical care and carb controlled TF formula of Vital AF * TF @ goal meeds 100% est kcal/prot needs * HOB over 30 degrees/ water flush per MD TF may be lowered to 55ml/hr for improved BG control while maintaining Kcal and pro needs. ADDITIONAL RECOMMENDATIONS: * Calibrated bedscale wt * Monitor Propofol rate, need for TF adjustment-> now off * Monitor BGs closely : now improved, on novolog q 6rs + NISS * Monitor lytes- K elevated, monitor need for TF change * Rec bowel regimen- now w/ rectal tube . Az Devine Jun 30, 2020 13:35
[2020-06-30] MEDS: Midodrine 10mg tab GT SCH ×2 (13:56→20:05)
--- NOTE | 2020-06-30 14:00 | NUR ---
NURSE NOTES: Pt's brother visited on the unit. Updated him on pt's current condition. Pt on 70% FiO2. PEEP 7. O2sat reading 100% on gambling monitor.
--- NOTE | 2020-06-30 15:22 | NUR ---
NURSE NOTES: Bed switched out d/t malfunction.
[2020-06-30] MEDS: fentaNYL 2500mcg/NS 250ml 250 ML IV SCH (15:31)
--- NOTE | 2020-06-30 17:15 | NUR ---
NURSE NOTES: Pt fully cleaned and linens changed. Oral care done. Tube feeds started; running Vital AF @ 20mL/hr. HOB elevated 30 degrees. No distress noted.
--- NOTE | 2020-06-30 19:13 | NUR ---
NURSE HAND-OFF REPORT: Latest Vital Signs: Temperature 97.4 , Pulse 92 , B/P 102 /63 , Respiratory Rate 15 , O2 SAT 99 , Mechanical Ventilator, FiO2 70% . Vital Sign Comment: EKG Rhythm: Sinus Rhythm Rhythm change?: N MD Notified?: MD Response: Latest Meyers Fall Score: 70 Fall Risk: High Risk Safety Measures: Call light Within Reach, Bed Alarm Zone 1, Side Rails Side Rails x2, Bed position Low and Locked. Fall Precautions: Yellow Socks Report given to RAKEL James.
[2020-06-30] MEDS: Dyna-Hex 2% Top Sol 2oz TOPIC SCH (20:04)
[2020-06-30] MEDS: Miralax 17gm pkt GT SCH (20:05)
[2020-07-01] VITALS (57 sets, daily range): BP systolic 86–120; BP diastolic 51–72
[2020-07-01] MEDS: Midodrine 10mg tab GT SCH ×3 (05:19→22:18)
[2020-07-01] MEDS: Midazolam HCl 50mg/10ml vial 100 MG in NS 180 ML IV PRN ×2 (05:19→15:48)
[2020-07-01] MEDS: NovoLOG Insulin Flexpen SUBQ SCH ×4 (05:20→18:20)
--- NOTE | 2020-07-01 06:14 | General Progress Note ---
Subjective ROS Limited/Unobtainable: Yes Allergies: Coded Allergies: No Known Allergies (Unverified , 05/28/20) Subjective events noted interval notes reviewed glucose values are stable Item Value Date Time Bedside Blood Glucose 145 mg/dl H 07/01/20 0520 Bedside Blood Glucose 132 mg/dl H 07/01/20 0000 Bedside Blood Glucose 125 mg/dl H 06/30/20 1800 Bedside Blood Glucose 129 mg/dl H 06/30/20 1200 Bedside Blood Glucose 132 mg/dl H 06/30/20 0600 Objective Last 24 Hour Vital Signs Date Time Temp Pulse Resp B/P (MAP) Pulse Ox O2 Delivery O2 Flow Rate FiO2 07/01/20 05:19 18 Mechanical Ventilator 07/01/20 04:15 96 22 98 07/01/20 04:00 97.3 95 20 106/58 (74) 100 07/01/20 04:00 Mechanical Ventilator Mechanical Ventilator 07/01/20 04:00 99 07/01/20 04:00 70 07/01/20 03:45 96 25 109/63 (78) 98 07/01/20 03:30 92 18 110/67 (81) 97 07/01/20 03:15 93 21 105/63 (77) 100 07/01/20 03:00 101 30 114/69 (84) 87 07/01/20 02:45 96 21 104/60 (75) 100 07/01/20 02:30 96 22 107/58 (74) 97 07/01/20 02:00 99 23 111/57 (75) 97 07/01/20 01:45 98 19 110/66 (81) 91 07/01/20 01:30 98 22 106/58 (74) 97 07/01/20 01:15 96 22 109/59 (76) 94 07/01/20 01:00 95 22 108/57 (74) 97 07/01/20 00:45 93 22 101/60 (74) 100 07/01/20 00:43 94 23 70 07/01/20 00:30 97.1 89 23 108/64 (79) 95 07/01/20 00:15 91 19 103/59 (74) 100 07/01/20 00:00 70 07/01/20 00:00 99 07/01/20 00:00 91 20 102/62 (75) 100 06/30/20 23:45 89 18 107/62 (77) 98 06/30/20 23:30 90 19 109/59 (76) 98 06/30/20 23:15 92 20 105/58 (74) 100 06/30/20 23:00 87 17 105/61 (76) 100 06/30/20 22:45 91 21 97/65 (76) 100 06/30/20 22:30 93 20 103/64 (77) 100 06/30/20 22:15 94 21 102/63 (76) 99 06/30/20 22:00 92 19 109/57 (74) 100 06/30/20 21:45 97 22 119/68 (85) 88 06/30/20 21:30 96 24 112/63 (79) 97 06/30/20 21:00 95 22 117/69 (85) 92 06/30/20 20:15 91 19 95/57 (70) 100 06/30/20 20:00 99 06/30/20 20:00 Mechanical Ventilator Mechanical Ventilator 06/30/20 20:00 70 06/30/20 20:00 97.0 91 14 100/54 (69) 100 06/30/20 19:45 93 19 102/56 (71) 100 06/30/20 19:30 92 18 70 06/30/20 19:30 92 16 105/49 (67) 100 06/30/20 19:15 92 19 99/60 (73) 98 06/30/20 19:00 92 15 102/63 (76) 99 06/30/20 19:00 15 Mechanical Ventilator 70 06/30/20 19:00 15 102/63 Mechanical Ventilator 70 06/30/20 18:30 93 18 96/62 (73) 97 06/30/20 18:00 20 Mechanical Ventilator 70 06/30/20 18:00 20 100/64 Mechanical Ventilator 70 06/30/20 18:00 95 18 100/63 (75) 99 06/30/20 17:50 18 Mechanical Ventilator 70 06/30/20 17:00 18 Mechanical Ventilator 70 06/30/20 17:00 18 111/62 Mechanical Ventilator 70 06/30/20 17:00 97 25 106/63 (77) 96 06/30/20 16:30 96 24 107/62 (77) 95 06/30/20 16:00 97.4 100 20 114/64 (81) 95 06/30/20 16:00 20 Mechanical Ventilator 70 06/30/20 16:00 20 114/64 Mechanical Ventilator 70 06/30/20 16:00 70 06/30/20 16:00 99 06/30/20 16:00 Mechanical Ventilator Mechanical Ventilator 06/30/20 15:31 20 105/58 Mechanical Ventilator 70 06/30/20 15:00 100 20 104/64 (77) 96 06/30/20 15:00 20 Mechanical Ventilator 70 06/30/20 15:00 20 104/64 Mechanical Ventilator 70 06/30/20 14:55 98 17 70 06/30/20 14:30 101 17 97/53 (68) 100 06/30/20 14:00 18 Mechanical Ventilator 70 06/30/20 14:00 18 94/56 Mechanical Ventilator 70 06/30/20 14:00 101 18 94/56 (69) 100 06/30/20 13:00 20 Mechanical Ventilator 70 06/30/20 13:00 20 111/53 Mechanical Ventilator 70 06/30/20 13:00 100 18 111/53 (72) 100 06/30/20 12:00 Mechanical Ventilator Mechanical Ventilator 06/30/20 12:00 100 06/30/20 12:00 20 Mechanical Ventilator 70 06/30/20 12:00 20 110/58 Mechanical Ventilator 70 06/30/20 12:00 97.5 102 18 110/58 (75) 100 06/30/20 12:00 70 06/30/20 11:47 103 22 70 06/30/20 11:05 106 27 70 06/30/20 11:00 18 Mechanical Ventilator 70 06/30/20 11:00 18 120/73 Mechanical Ventilator 70 06/30/20 11:00 104 21 120/73 (89) 98 06/30/20 10:00 107 20 123/80 (94) 99 06/30/20 10:00 18 Mechanical Ventilator 70 06/30/20 10:00 18 127/81 Mechanical Ventilator 70 06/30/20 09:30 107 26 125/66 (85) 97 06/30/20 09:00 107 20 112/62 (79) 99 06/30/20 09:00 18 Mechanical Ventilator 70 06/30/20 09:00 18 114/68 Mechanical Ventilator 70 06/30/20 08:30 107 21 120/64 (82) 95 06/30/20 08:24 16 Mechanical Ventilator 70 06/30/20 08:00 98.6 107 27 109/54 (72) 96 06/30/20 08:00 Mechanical Ventilator Mechanical Ventilator 06/30/20 08:00 70 06/30/20 08:00 107 06/30/20 08:00 22 130/59 Mechanical Ventilator 70 06/30/20 07:25 104 20 70 06/30/20 07:00 22 Mechanical Ventilator 70 06/30/20 07:00 22 94/59 Mechanical Ventilator 70 06/30/20 07:00 101 25 97/60 (72) 99 06/30/20 06:45 101 24 98/56 (70) 100 06/30/20 06:30 86 20 06/30/20 06:30 102 21 98/58 (71) 100 06/30/20 06:15 103 21 97/63 (74) 99 Intake and Output 06/30/20 07/01/20 19:00 07:00 Intake Total 1761.88 ml 420 ml Output Total 1850 ml 125 ml Balance -88.12 ml 295 ml IV Total 1481.88 ml 170 ml Tube Feeding 60 ml 250 ml Other 220 ml Output Urine Total 1850 ml 125 ml Stool Total 0 ml Laboratory Tests 06/30/20 08:09: Arterial Blood pH 7.320L, Arterial Blood Partial Pressure CO2 80.7*H, Arterial Blood Partial Pressure O2 54.4L, Arterial Blood HCO3 40.6*H, Arterial Blood Oxygen Saturation 84.8*L, Arterial Blood Base Excess 12.2*H, Jeremiah Test Positive 06/30/20 17:09: POC Whole Blood Glucose 125H 07/01/20 05:15: POC Whole Blood Glucose 145H Height (Feet): 5 Height (Inches): 5.00 Weight (Pounds): 308 Objective Current Medications Medications (Trade) Dose Ordered Sig/Zelda Route PRN Reason Start Time Stop Time Status Last Admin Dose Admin Acetaminophen (Tylenol) 650 mg Q4H PRN NG Temp >100.5 06/29/20 10:15 07/29/20 10:14 Acetaminophen (Tylenol) 650 mg Q6H PRN NG Mild Pain (Pain Scale 1-3) 06/29/20 10:15 07/29/20 10:14 Chlorhexidine Gluconate (Inna-Hex 2%) 1 applic DAILY@2000 TOPIC 05/30/20 20:00 08/28/20 19:59 06/30/20 20:04 Dextrose (Dextrose 50%) 25 ml Q30M PRN IV Hypoglycemia 06/05/20 10:45 09/03/20 10:44 Dextrose (Dextrose 50%) 50 ml Q30M PRN IV Hypoglycemia 06/05/20 10:45 09/03/20 10:44 Dextrose/Sodium Chloride 1,000 ml @ 50 mls/hr Q20H IV 06/24/20 16:30 07/24/20 16:29 06/30/20 10:00 Docusate Sodium (Colace) 100 mg Q12HR GT 06/07/20 21:00 07/07/20 20:59 06/30/20 20:04 Enoxaparin Sodium (Lovenox) 40 mg DAILY SUBQ 05/30/20 10:00 08/28/20 09:59 06/30/20 09:38 Furosemide (Lasix) 40 mg DAILY IV 06/22/20 09:00 07/22/20 08:59 06/30/20 09:39 Insulin Aspart (NovoLOG) EVERY 6 HOURS SUBQ 06/07/20 00:00 09/03/20 11:59 07/01/20 05:20 Midazolam HCl 100 mg/Sodium Chloride 200 ml @ 2 mls/hr Q24H PRN IV sedation 06/29/20 15:25 07/01/20 15:24 07/01/20 05:19 Midodrine (Pro-Amatine) 10 mg Q8HR GT 06/30/20 14:00 09/12/20 13:59 07/01/20 05:19 Pantoprazole (Protonix) 40 mg Q12HR IVP 06/13/20 21:00 07/03/20 08:59 06/30/20 20:05 Polyethylene Glycol (Miralax) 17 gm BEDTIME GT 06/07/20 21:00 07/07/20 20:59 06/30/20 20:05 Vitamin D (Vitamin D) 5,000 unit DAILY GT 06/28/20 09:00 07/28/20 08:59 06/30/20 09:39 Assessment/Plan Problem List: (1) Diabetes mellitus out of control ICD Codes: E11.65 - Type 2 diabetes mellitus with hyperglycemia SNOMED: 67383030, 577802148 (2) Pneumonia due to COVID-19 virus ICD Codes: U07.1 - COVID-19; J12.82 - Pneumonia due to coronavirus disease 2019 SNOMED: 274954651977617266 (3) Respiratory distress ICD Codes: R06.03 - Acute respiratory distress; J12.82 - Pneumonia due to coronavirus disease 2019 SNOMED: 241734227 Status: unchanged Assessment/Plan: no need for basal insulin continue Novolog sliding scale every 6 hours Huber Adame MD Jul 01, 2020 06:14
[2020-07-01 06:30] LABS: BASOPHILS % (AUTO) 0.9 % (0.0-2.0); EOSINOPHILS % (AUTO) 5.5 % (0.0-3.0); HEMATOCRIT 30.1 % (37.0-47.0); HEMOGLOBIN 9.3 G/DL (12.0-16.0); LYMPHOCYTES % (AUTO) 21.1 % (20.0-45.0); MEAN CORPUSCULAR VOLUME 93 FL (80-99); MONOCYTES % (AUTO) 5.4 % (1.0-10.0); NEUTROPHILS % (AUTO) 67.2 % (45.0-75.0); PLATELET COUNT 218 K/UL (150-450); RED BLOOD COUNT 3.22 M/UL (4.20-5.40); RED CELL DISTRIBUTION WIDTH 16.6 % (11.6-14.8); WHITE BLOOD COUNT 6.8 K/UL (4.8-10.8)
[2020-07-01 06:41] LABS: INR 1.1 (0.9-1.1)
--- NOTE | 2020-07-01 06:43 | Hematology/Onc Progress Note ---
Assessment/Plan Assessment/Plan # Thrombocytopenia is due to infection/underlying covid19+++ --> ABX ceftriaxone -->zosyn-->off --> on steriods likely cause of initial wbc --> per pulm --> plt 107->156-->192-->205 --> smear reviewed # Anemia due to chronic disease --> hgb goal is >7 --> transfuse prn --> ferritin is >1000 --> hold off on iron --> 10-->9.8->9-->8-->8.2-->9.4-->8.1-->9.9-->8.7-->9.7-->9.5 # Elevated ddimer due to covid19++ --> duplex legs is negative --> underlying covid rx # Hypoxia -> due to covid19 # Hypoxemia --> rx same as above # Respiratory failure --> on vent --> per pulm # Pneumonia due to COVID-19 virus --> per pulm rx -> sp remdesivir # Diabetes mellitus out of control --> hgb a1c goal <7 # Poor prognosis # Dvt ppx lovenox sq Appreciate consultation and bowen RN Subjective Allergies: Coded Allergies: No Known Allergies (Unverified , 05/28/20) All Systems: reviewed and negative except above Subjective 06/10 nv, on vent, with ogt, on fentanyl and versed, plt stable 06/11 nv, vent adjusted is on ogt, meds reviewed 06/12 nv, vent, meds noted, labs noted, no bleeding, hgb 10.4 06/13 nv, is on vent, meds reviewed, no bleeding, cbc reviewed 06/14 nv, on vent, tachy, labs reviewed, gross hematuria, febrile overnight, abx 06/17 nv, on vent, labs noted, no major changes, feeling better overnight 06/18 nv, meds reviewed, labs noted, no major events, hgb 8.6 06/19 nv, remains intubated, with fluids, labs reviewed, meds noted 06/20 nv, intubated remains on restraints, meds noted as well, as labs 06/21 nv, remains on vent, on restraints, meds reviewed, labs noted 06/22: covering Dr. Del Cid no acute events 06/23 sedated, on vent, nv, intubated, meds reviewed, versed 06/24 nv, on vent, no night sweats, no bleeding, remains in icu 06/25 nv, on vent, icu, meds noted, no bleeding, comfortable 2 nv, on versed, icu, weaning parameters, labs noted 06/27 nv, overnight fighting vent, as per pulm fentanyl on board 06/28 nv, on vent, labs reviewed, as per pulm, meds noted 06/30 nv, icu, labs pending, is on fentanyl, versed, no new changes 07/01 nv, icu, is on vent, labs pending, no new changes per rn Objective Objective Current Medications Medications (Trade) Dose Ordered Sig/Zelda Route PRN Reason Start Time Stop Time Status Last Admin Dose Admin Acetaminophen (Tylenol) 650 mg Q4H PRN NG Temp >100.5 06/29/20 10:15 07/29/20 10:14 Acetaminophen (Tylenol) 650 mg Q6H PRN NG Mild Pain (Pain Scale 1-3) 06/29/20 10:15 07/29/20 10:14 Chlorhexidine Gluconate (Inna-Hex 2%) 1 applic DAILY@2000 TOPIC 05/30/20 20:00 08/28/20 19:59 06/30/20 20:04 Dextrose (Dextrose 50%) 25 ml Q30M PRN IV Hypoglycemia 06/05/20 10:45 09/03/20 10:44 Dextrose (Dextrose 50%) 50 ml Q30M PRN IV Hypoglycemia 06/05/20 10:45 09/03/20 10:44 Dextrose/Sodium Chloride 1,000 ml @ 50 mls/hr Q20H IV 06/24/20 16:30 07/24/20 16:29 06/30/20 10:00 Docusate Sodium (Colace) 100 mg Q12HR GT 06/07/20 21:00 07/07/20 20:59 06/30/20 20:04 Enoxaparin Sodium (Lovenox) 40 mg DAILY SUBQ 05/30/20 10:00 08/28/20 09:59 06/30/20 09:38 Furosemide (Lasix) 40 mg DAILY IV 06/22/20 09:00 07/22/20 08:59 06/30/20 09:39 Insulin Aspart (NovoLOG) EVERY 6 HOURS SUBQ 06/07/20 00:00 09/03/20 11:59 07/01/20 05:20 Midazolam HCl 100 mg/Sodium Chloride 200 ml @ 2 mls/hr Q24H PRN IV sedation 06/29/20 15:25 07/01/20 15:24 07/01/20 05:19 Midodrine (Pro-Amatine) 10 mg Q8HR GT 06/30/20 14:00 09/12/20 13:59 07/01/20 05:19 Pantoprazole (Protonix) 40 mg Q12HR IVP 06/13/20 21:00 07/03/20 08:59 06/30/20 20:05 Polyethylene Glycol (Miralax) 17 gm BEDTIME GT 06/07/20 21:00 07/07/20 20:59 06/30/20 20:05 Vitamin D (Vitamin D) 5,000 unit DAILY GT 06/28/20 09:00 07/28/20 08:59 06/30/20 09:39 Last 24 Hour Vital Signs Date Time Temp Pulse Resp B/P (MAP) Pulse Ox O2 Delivery O2 Flow Rate FiO2 07/01/20 06:15 101 106/63 (77) 98 07/01/20 06:05 104 105/51 (69) 89 07/01/20 06:00 104 108/72 (84) 90 07/01/20 05:45 105 26 116/71 (86) 88 07/01/20 05:30 102 23 109/63 (78) 93 07/01/20 05:19 18 Mechanical Ventilator 07/01/20 05:15 110 33 118/68 (85) 84 07/01/20 05:00 100 21 119/62 (81) 95 07/01/20 04:45 96 18 117/64 (81) 100 07/01/20 04:30 101 30 117/65 (82) 86 07/01/20 04:15 96 22 98 07/01/20 04:00 97.3 95 20 106/58 (74) 100 07/01/20 04:00 Mechanical Ventilator Mechanical Ventilator 07/01/20 04:00 99 07/01/20 04:00 70 07/01/20 03:45 96 25 109/63 (78) 98 07/01/20 03:30 92 18 110/67 (81) 97 07/01/20 03:15 93 21 105/63 (77) 100 07/01/20 03:00 101 30 114/69 (84) 87 07/01/20 02:45 96 21 104/60 (75) 100 07/01/20 02:30 96 22 107/58 (74) 97 07/01/20 02:00 99 23 111/57 (75) 97 07/01/20 01:45 98 19 110/66 (81) 91 07/01/20 01:30 98 22 106/58 (74) 97 07/01/20 01:15 96 22 109/59 (76) 94 07/01/20 01:00 95 22 108/57 (74) 97 07/01/20 00:45 93 22 101/60 (74) 100 07/01/20 00:43 94 23 70 07/01/20 00:30 97.1 89 23 108/64 (79) 95 07/01/20 00:15 91 19 103/59 (74) 100 07/01/20 00:00 70 07/01/20 00:00 99 07/01/20 00:00 91 20 102/62 (75) 100 06/30/20 23:45 89 18 107/62 (77) 98 06/30/20 23:30 90 19 109/59 (76) 98 06/30/20 23:15 92 20 105/58 (74) 100 06/30/20 23:00 87 17 105/61 (76) 100 06/30/20 22:45 91 21 97/65 (76) 100 06/30/20 22:30 93 20 103/64 (77) 100 06/30/20 22:15 94 21 102/63 (76) 99 06/30/20 22:00 92 19 109/57 (74) 100 06/30/20 21:45 97 22 119/68 (85) 88 06/30/20 21:30 96 24 112/63 (79) 97 06/30/20 21:00 95 22 117/69 (85) 92 06/30/20 20:15 91 19 95/57 (70) 100 06/30/20 20:00 99 06/30/20 20:00 Mechanical Ventilator Mechanical Ventilator 06/30/20 20:00 70 06/30/20 20:00 97.0 91 14 100/54 (69) 100 06/30/20 19:45 93 19 102/56 (71) 100 06/30/20 19:30 92 18 70 06/30/20 19:30 92 16 105/49 (67) 100 06/30/20 19:15 92 19 99/60 (73) 98 06/30/20 19:00 92 15 102/63 (76) 99 06/30/20 19:00 15 Mechanical Ventilator 70 06/30/20 19:00 15 102/63 Mechanical Ventilator 70 06/30/20 18:30 93 18 96/62 (73) 97 06/30/20 18:00 20 Mechanical Ventilator 70 06/30/20 18:00 20 100/64 Mechanical Ventilator 70 06/30/20 18:00 95 18 100/63 (75) 99 06/30/20 17:50 18 Mechanical Ventilator 70 06/30/20 17:00 18 Mechanical Ventilator 70 06/30/20 17:00 18 111/62 Mechanical Ventilator 70 06/30/20 17:00 97 25 106/63 (77) 96 06/30/20 16:30 96 24 107/62 (77) 95 06/30/20 16:00 97.4 100 20 114/64 (81) 95 06/30/20 16:00 20 Mechanical Ventilator 70 06/30/20 16:00 20 114/64 Mechanical Ventilator 70 06/30/20 16:00 70 06/30/20 16:00 99 06/30/20 16:00 Mechanical Ventilator Mechanical Ventilator 06/30/20 15:31 20 105/58 Mechanical Ventilator 70 06/30/20 15:00 100 20 104/64 (77) 96 06/30/20 15:00 20 Mechanical Ventilator 70 06/30/20 15:00 20 104/64 Mechanical Ventilator 70 06/30/20 14:55 98 17 70 06/30/20 14:30 101 17 97/53 (68) 100 06/30/20 14:00 18 Mechanical Ventilator 70 06/30/20 14:00 18 94/56 Mechanical Ventilator 70 06/30/20 14:00 101 18 94/56 (69) 100 06/30/20 13:00 20 Mechanical Ventilator 70 06/30/20 13:00 20 111/53 Mechanical Ventilator 70 06/30/20 13:00 100 18 111/53 (72) 100 06/30/20 12:00 Mechanical Ventilator Mechanical Ventilator 06/30/20 12:00 100 06/30/20 12:00 20 Mechanical Ventilator 70 06/30/20 12:00 20 110/58 Mechanical Ventilator 70 06/30/20 12:00 97.5 102 18 110/58 (75) 100 06/30/20 12:00 70 06/30/20 11:47 103 22 70 06/30/20 11:05 106 27 70 06/30/20 11:00 18 Mechanical Ventilator 70 06/30/20 11:00 18 120/73 Mechanical Ventilator 70 06/30/20 11:00 104 21 120/73 (89) 98 06/30/20 10:00 107 20 123/80 (94) 99 06/30/20 10:00 18 Mechanical Ventilator 70 06/30/20 10:00 18 127/81 Mechanical Ventilator 70 06/30/20 09:30 107 26 125/66 (85) 97 06/30/20 09:00 107 20 112/62 (79) 99 06/30/20 09:00 18 Mechanical Ventilator 70 06/30/20 09:00 18 114/68 Mechanical Ventilator 70 06/30/20 08:30 107 21 120/64 (82) 95 06/30/20 08:24 16 Mechanical Ventilator 70 06/30/20 08:00 98.6 107 27 109/54 (72) 96 06/30/20 08:00 Mechanical Ventilator Mechanical Ventilator 06/30/20 08:00 70 06/30/20 08:00 107 06/30/20 08:00 22 130/59 Mechanical Ventilator 70 06/30/20 07:25 104 20 70 06/30/20 07:00 22 Mechanical Ventilator 70 06/30/20 07:00 22 94/59 Mechanical Ventilator 70 06/30/20 07:00 101 25 97/60 (72) 99 06/30/20 06:45 101 24 98/56 (70) 100 06/30/20 06:30 86 20 06/30/20 06:30 102 21 98/58 (71) 100 06/30/20 06:15 103 21 97/63 (74) 99 06/30/20 06:00 101 22 102/61 (75) 98 06/30/20 05:45 102 20 103/62 (76) 100 06/30/20 05:30 113 27 123/80 (94) 82 06/30/20 05:15 99 19 113/70 (84) 88 06/30/20 05:00 106 30 120/68 (85) 91 06/30/20 04:00 97.2 06/30/20 04:00 Mechanical Ventilator Mechanical Ventilator 06/30/20 04:00 70 06/30/20 04:00 100 06/30/20 04:00 100 21 105/67 (80) 96 06/30/20 03:00 96 22 107/59 (75) 93 06/30/20 02:45 100 25 94/62 (73) 94 06/30/20 02:30 92 20 104/58 (73) 94 06/30/20 02:15 93 20 94/58 (70) 93 06/30/20 02:00 98 24 107/62 (77) 98 06/30/20 01:45 95 23 99/60 (73) 97 06/30/20 01:30 92 21 96/60 (72) 98 06/30/20 01:15 93 22 100/57 (71) 100 06/30/20 01:00 96 24 102/60 (74) 98 06/30/20 00:58 101 25 70 06/30/20 00:00 97.5 92 16 93/56 (68) 100 06/30/20 00:00 70 06/30/20 00:00 Mechanical Ventilator Mechanical Ventilator 06/30/20 00:00 100 06/29/20 23:15 94 17 95/58 (70) 100 06/29/20 23:00 91 17 97/61 (73) 100 06/29/20 22:59 19 06/29/20 22:59 19 100/55 Mechanical Ventilator 06/29/20 22:45 91 18 100/55 (70) 100 06/29/20 22:30 92 18 99/52 (68) 100 06/29/20 22:15 94 18 98/59 (72) 99 06/29/20 22:00 93 15 100/55 (70) 98 06/29/20 21:45 95 19 100/58 (72) 98 06/29/20 21:30 95 16 111/56 (74) 97 06/29/20 21:15 97 21 105/59 (74) 97 06/29/20 21:00 99 24 114/63 (80) 92 06/29/20 20:45 99 22 101/58 (72) 98 06/29/20 20:30 94 21 94/60 (71) 98 06/29/20 20:00 100 06/29/20 20:00 23 Non-Rebreather 06/29/20 20:00 23 105/58 Mechanical Ventilator 70 06/29/20 20:00 Mechanical Ventilator Mechanical Ventilator 06/29/20 20:00 97.5 96 20 105/58 (74) 96 06/29/20 20:00 70 06/29/20 19:45 95 18 95/63 (74) 94 06/29/20 19:30 93 17 98/62 (74) 98 06/29/20 19:15 95 17 97/58 (71) 96 06/29/20 19:05 100 22 70 06/29/20 19:00 95 18 97/59 (72) 95 06/29/20 19:00 18 Mechanical Ventilator 70 06/29/20 19:00 18 97/54 Mechanical Ventilator 70 06/29/20 19:00 95 18 97/59 (72) 95 06/29/20 18:00 17 Mechanical Ventilator 70 06/29/20 18:00 17 91/64 Mechanical Ventilator 70 06/29/20 18:00 99 17 91/64 (73) 95 06/29/20 17:30 94 15 98/60 (73) 96 06/29/20 17:10 92 18 70 06/29/20 17:00 95 21 97/55 (69) 95 06/29/20 17:00 15 Mechanical Ventilator 70 06/29/20 17:00 15 98/60 Mechanical Ventilator 70 06/29/20 16:30 94 15 90/63 (72) 97 06/29/20 16:00 Mechanical Ventilator Mechanical Ventilator 06/29/20 16:00 94 06/29/20 16:00 18 Mechanical Ventilator 70 06/29/20 16:00 18 97/64 Mechanical Ventilator 70 06/29/20 16:00 98.2 94 18 93/62 (72) 98 06/29/20 15:50 18 Mechanical Ventilator 70 06/29/20 15:45 95 18 100/66 (77) 97 06/29/20 15:30 97 17 70 06/29/20 15:30 94 16 98/61 (73) 100 06/29/20 15:15 96 16 96/63 (74) 100 06/29/20 15:00 18 98/61 Mechanical Ventilator 80 06/29/20 15:00 18 Mechanical Ventilator 80 06/29/20 15:00 98 20 98/61 (73) 100 06/29/20 14:45 21 102/65 Mechanical Ventilator 80 06/29/20 14:45 21 Mechanical Ventilator 80 06/29/20 14:45 99 24 102/65 (77) 98 06/29/20 14:30 23 110/68 Mechanical Ventilator 80 06/29/20 14:30 23 Mechanical Ventilator 80 06/29/20 14:30 106 27 110/68 (82) 67 06/29/20 14:15 23 92/61 Mechanical Ventilator 80 06/29/20 14:10 80 06/29/20 14:00 80 06/29/20 14:00 98 16 94/62 (73) 100 06/29/20 14:00 16 94/62 Mechanical Ventilator 50 06/29/20 14:00 16 Mechanical Ventilator 50 06/29/20 13:30 98 17 99/60 (73) 100 06/29/20 13:01 99 25 50 06/29/20 13:00 17 95/62 Mechanical Ventilator 60 06/29/20 13:00 17 Mechanical Ventilator 60 06/29/20 13:00 99 16 95/62 (73) 100 06/29/20 12:30 101 17 98/64 (75) 100 06/29/20 12:00 101 06/29/20 12:00 Mechanical Ventilator Mechanical Ventilator 06/29/20 12:00 16 103/60 Mechanical Ventilator 60 06/29/20 12:00 16 Mechanical Ventilator 60 06/29/20 12:00 99.2 101 19 103/60 (74) 100 06/29/20 12:00 60 06/29/20 11:30 105 22 102/71 (81) 94 06/29/20 11:15 101 21 108/69 (82) 93 06/29/20 11:06 104 20 60 06/29/20 11:00 106 21 111/68 (82) 100 06/29/20 11:00 16 111/68 Mechanical Ventilator 60 06/29/20 11:00 16 Mechanical Ventilator 60 06/29/20 10:30 101 16 110/72 (85) 100 06/29/20 10:00 104 22 110/66 (81) 94 06/29/20 10:00 16 110/66 Mechanical Ventilator 70 06/29/20 10:00 16 Mechanical Ventilator 70 06/29/20 09:30 102 21 98/61 (73) 100 06/29/20 09:00 101 19 109/68 (82) 98 06/29/20 09:00 16 109/68 Mechanical Ventilator 70 06/29/20 09:00 16 Mechanical Ventilator 70 06/29/20 09:00 70 06/29/20 09:00 108 19 70 06/29/20 08:30 101 17 105/67 (80) 100 06/29/20 08:00 80 06/29/20 08:00 98.9 100 18 99/65 (76) 100 06/29/20 08:00 100 06/29/20 08:00 19 99/65 Mechanical Ventilator 80 06/29/20 08:00 19 Mechanical Ventilator 80 06/29/20 08:00 Mechanical Ventilator Mechanical Ventilator 06/29/20 07:43 17 Mechanical Ventilator 80 06/29/20 07:30 112 32 109/70 (83) 94 06/29/20 07:00 98 17 80 06/29/20 07:00 103 23 98/66 (77) 99 06/29/20 07:00 24 98/66 Mechanical Ventilator 70 Intake and Output 06/30/20 07/01/20 19:00 07:00 Intake Total 1761.88 ml 1020 ml Output Total 1850 ml 125 ml Balance -88.12 ml 895 ml IV Total 1481.88 ml 690 ml Tube Feeding 60 ml 330 ml Other 220 ml Output Urine Total 1850 ml 125 ml Stool Total 0 ml # Voids 10 Labs Test 06/28/20 12:25 06/28/20 17:33 06/28/20 23:42 06/29/20 03:45 POC Whole Blood Glucose 105 MG/DL (74-106) 116 MG/DL (74-106) 106 MG/DL (74-106) White Blood Count 10.3 K/UL (4.8-10.8) Red Blood Count 3.32 M/UL (4.20-5.40) Hemoglobin 9.5 G/DL (12.0-16.0) Hematocrit 31.2 % (37.0-47.0) Mean Corpuscular Volume 94 FL (80-99) Mean Corpuscular Hemoglobin 28.5 PG (27.0-31.0) Mean Corpuscular Hemoglobin Concent 30.4 G/DL (32.0-36.0) Red Cell Distribution Width 16.7 % (11.6-14.8) Platelet Count 229 K/UL (150-450) Mean Platelet Volume 7.7 FL (6.5-10.1) Neutrophils (%) (Auto) 63.2 % (45.0-75.0) Lymphocytes (%) (Auto) 25.8 % (20.0-45.0) Monocytes (%) (Auto) 4.6 % (1.0-10.0) Eosinophils (%) (Auto) 5.7 % (0.0-3.0) Basophils (%) (Auto) 0.7 % (0.0-2.0) Sodium Level 138 MMOL/L (136-145) Potassium Level 4.6 MMOL/L (3.5-5.1) Chloride Level 99 MMOL/L (98-107) Carbon Dioxide Level 37 MMOL/L (21-32) Anion Gap 2 mmol/L (5-15) Blood Urea Nitrogen 13 mg/dL (7-18) Creatinine 0.5 MG/DL (0.55-1.30) Estimat Glomerular Filtration Rate > 60 mL/min (>60) Glucose Level 107 MG/DL (74-106) Calcium Level 8.6 MG/DL (8.5-10.1) Test 06/29/20 12:32 06/30/20 04:45 06/30/20 05:30 06/30/20 08:09 POC Whole Blood Glucose 118 MG/DL (74-106) 132 MG/DL (74-106) White Blood Count 9.2 K/UL (4.8-10.8) Red Blood Count 3.43 M/UL (4.20-5.40) Hemoglobin 9.9 G/DL (12.0-16.0) Hematocrit 31.7 % (37.0-47.0) Mean Corpuscular Volume 92 FL (80-99) Mean Corpuscular Hemoglobin 28.7 PG (27.0-31.0) Mean Corpuscular Hemoglobin Concent 31.1 G/DL (32.0-36.0) Red Cell Distribution Width 17.1 % (11.6-14.8) Platelet Count 242 K/UL (150-450) Mean Platelet Volume 8.5 FL (6.5-10.1) Neutrophils (%) (Auto) 65.8 % (45.0-75.0) Lymphocytes (%) (Auto) 23.2 % (20.0-45.0) Monocytes (%) (Auto) 4.6 % (1.0-10.0) Eosinophils (%) (Auto) 5.9 % (0.0-3.0) Basophils (%) (Auto) 0.5 % (0.0-2.0) Sodium Level 138 MMOL/L (136-145) Potassium Level 3.9 MMOL/L (3.5-5.1) Chloride Level 96 MMOL/L (98-107) Carbon Dioxide Level 39 MMOL/L (21-32) Anion Gap 3 mmol/L (5-15) Blood Urea Nitrogen 8 mg/dL (7-18) Creatinine 0.4 MG/DL (0.55-1.30) Estimat Glomerular Filtration Rate > 60 mL/min (>60) Glucose Level 114 MG/DL (74-106) Calcium Level 9.2 MG/DL (8.5-10.1) Phosphorus Level 2.9 MG/DL (2.5-4.9) Magnesium Level 1.4 MG/DL (1.8-2.4) Total Bilirubin 1.7 MG/DL (0.2-1.0) Direct Bilirubin 0.4 MG/DL (0.0-0.3) Aspartate Amino Transf (AST/SGOT) 34 U/L (15-37) Alanine Aminotransferase (ALT/SGPT) 23 U/L (12-78) Alkaline Phosphatase 84 U/L (46-116) C-Reactive Protein, Quantitative 7.6 mg/dL (0.00-0.90) Pro-B-Type Natriuretic Peptide 1365 pg/mL (0-125) Total Protein 7.5 G/DL (6.4-8.2) Albumin 2.3 G/DL (3.4-5.0) Globulin 5.2 g/dL Albumin/Globulin Ratio 0.4 (1.0-2.7) Arterial Blood pH 7.320 (7.350-7.450) Arterial Blood Partial Pressure CO2 80.7 mmHg (35.0-45.0) Arterial Blood Partial Pressure O2 54.4 mmHg (75.0-100.0) Arterial Blood HCO3 40.6 mmol/L (22.0-26.0) Arterial Blood Oxygen Saturation 84.8 % (95-100) Arterial Blood Base Excess 12.2 (-2-2) Jeremiah Test Positive Test 06/30/20 17:09 07/01/20 04:55 07/01/20 05:15 POC Whole Blood Glucose 125 MG/DL (74-106) 145 MG/DL (74-106) Height (Feet): 5 Height (Inches): 5.00 Weight (Pounds): 308 Objective GeNL: nv Pulm: vent++ CV: rrr Abd: soft, nt, nd Ext: no cce Myron Condon MD Jul 01, 2020 06:42
--- NOTE | 2020-07-01 06:53 | NUR ---
Pt went PEA. No pulse, hypotensive. Pt was maxed on levo, manda, and dopamine gtt. pronounced time of 615. Family notified. [facility] called, spoke with marnie vance ref #[id number]. Addendum: 07/01/20 at 0657 by Jacob Quintero RN error. Wrong pt.
--- NOTE | 2020-07-01 06:54 | NUR ---
CASE MANAGEMENT:REVIEW 07/01/20 SI: COVID PNEUMONIA ~ INTUBATED 97.3 101 26 106/63 98% ON VENT SUPPORT W/70% FIO2 PH-7.32 PCO2+80.7 PO2-54.4 HC03+40.6 IS:VERSED GTT IV LASIX QD IV PROTONIX Q12 LOVENOX SQ QD MIDODRINE NG Q8HRS : ICU STATUS DCP: FROM HOME
[2020-07-01 07:21] LABS: ALANINE AMINOTRANSFERASE 23 U/L (12-78); ALBUMIN 2.3 G/DL (3.4-5.0); ALKALINE PHOSPHATASE 86 U/L (46-116); ANION GAP 1 mmol/L (5-15); ASPARTATE AMINO TRANSFERASE 33 U/L (15-37); BILIRUBIN,DIRECT 0.4 MG/DL (0.0-0.3); BILIRUBIN,TOTAL 1.5 MG/DL (0.2-1.0); BLOOD UREA NITROGEN 7 mg/dL (7-18); CHLORIDE 98 MMOL/L (98-107); CREATININE 0.4 MG/DL (0.55-1.30); PHOSPHORUS 3.1 MG/DL (2.5-4.9); POTASSIUM 3.4 MMOL/L (3.5-5.1); SODIUM 140 MMOL/L (136-145)
[2020-07-01 08:04] LABS: CARBON DIOXIDE 41 MMOL/L (21-32)
--- NOTE | 2020-07-01 08:14 | Consultation ---
DATE OF CONSULTATION: 06/30/2020 ENDOCRINOLOGY CONSULTATION CONSULTING PHYSICIAN: Lanre Butler M.D. REFERRING PHYSICIAN: Tank Del Cid D.O. REASON FOR CONSULTATION: I was asked to see this 50-year-old female by Dr. Tank Del Cid in endocrinology consultation for evaluation and management of type 2 diabetes mellitus. PERTINENT HISTORY: She acute COVID pneumonia since May 2020 and isd on Glucerna 1.2 40 cc/hr per OGT. with Levemir 20u sc Q12hr and sliding scale Novolog Q6hrs.Is on Dexamethasone 6 mg IVP qd. FH PH and ROS neg. PHYSICAL EXAMINATION: GENERAL: The patient is in no acute distress. She is lying supine. VITAL SIGNS: BP 94/54, pulse 92, respiratory rate 20, temperature 98. HEAD AND NECK: Unremarkable. LUNGS: Reduced breath sounds. HEART: Heart sounds distant. ABDOMEN: Soft. Bowel sounds present. EXTREMITIES: No edema . NEUROLOGIC: Cr. N motor and sensory intact.Reflexeds intact and toes are downgoing to plantar stimulation. INV:glucose 160 mg % ASSESSMENT: 1.Diabetes mellitus Type 2 increased by steroids 2. Acute covid pneumonia PLAN: Accuchecks q6hrs with sliding scale [id number] medium dose,Levemir 20u sc q12hrs and Glucerna 1.2 40 cc/hr per OGT. Hba1c in am. Lanre Butler M.D. DR: LENARD JOB#: [id number] CC: HUEY
--- NOTE | 2020-07-01 08:43 | NUR ---
RESPIRATORY NOTE: PEEP decreased to 7. Alfonzo ELLINGTON notified. All vs WNL. Will continue to monitor.
--- NOTE | 2020-07-01 09:21 | NUR ---
NURSE NOTES: order to reorder fentanyl was obtained from Dr. Nava, fentanyl is running at 150mcg/hr at rate of 15ml/hr. also she remains on versed drip to achieve a rass of -2.
[2020-07-01] MEDS: fentaNYL 2500mcg/NS 250ml 250 ML IV SCH (09:30)
--- NOTE | 2020-07-01 09:30 | General Progress Note ---
Subjective Constitutional: Reports: weakness Allergies: Coded Allergies: No Known Allergies (Unverified , 05/28/20) All Systems: reviewed and negative except above Subjective intubated sedated ng in icu Objective Last 24 Hour Vital Signs Date Time Temp Pulse Resp B/P (MAP) Pulse Ox O2 Delivery O2 Flow Rate FiO2 07/01/20 06:30 86 20 07/01/20 06:15 101 106/63 (77) 98 07/01/20 06:05 104 105/51 (69) 89 07/01/20 06:00 104 108/72 (84) 90 07/01/20 05:45 105 26 116/71 (86) 88 07/01/20 05:30 102 23 109/63 (78) 93 07/01/20 05:19 18 Mechanical Ventilator 07/01/20 05:15 110 33 118/68 (85) 84 07/01/20 05:00 100 21 119/62 (81) 95 07/01/20 04:45 96 18 117/64 (81) 100 07/01/20 04:30 101 30 117/65 (82) 86 07/01/20 04:15 96 22 98 07/01/20 04:00 97.3 95 20 106/58 (74) 100 07/01/20 04:00 Mechanical Ventilator Mechanical Ventilator 07/01/20 04:00 99 07/01/20 04:00 70 07/01/20 03:45 96 25 109/63 (78) 98 07/01/20 03:30 92 18 110/67 (81) 97 07/01/20 03:15 93 21 105/63 (77) 100 07/01/20 03:00 101 30 114/69 (84) 87 07/01/20 02:45 96 21 104/60 (75) 100 07/01/20 02:30 96 22 107/58 (74) 97 07/01/20 02:00 99 23 111/57 (75) 97 07/01/20 01:45 98 19 110/66 (81) 91 07/01/20 01:30 98 22 106/58 (74) 97 07/01/20 01:15 96 22 109/59 (76) 94 07/01/20 01:00 95 22 108/57 (74) 97 07/01/20 00:45 93 22 101/60 (74) 100 07/01/20 00:43 94 23 70 07/01/20 00:30 97.1 89 23 108/64 (79) 95 07/01/20 00:15 91 19 103/59 (74) 100 07/01/20 00:00 70 07/01/20 00:00 99 07/01/20 00:00 91 20 102/62 (75) 100 06/30/20 23:45 89 18 107/62 (77) 98 06/30/20 23:30 90 19 109/59 (76) 98 06/30/20 23:15 92 20 105/58 (74) 100 06/30/20 23:00 87 17 105/61 (76) 100 06/30/20 22:45 91 21 97/65 (76) 100 06/30/20 22:30 93 20 103/64 (77) 100 06/30/20 22:15 94 21 102/63 (76) 99 06/30/20 22:00 92 19 109/57 (74) 100 06/30/20 21:45 97 22 119/68 (85) 88 06/30/20 21:30 96 24 112/63 (79) 97 06/30/20 21:00 95 22 117/69 (85) 92 06/30/20 20:15 91 19 95/57 (70) 100 06/30/20 20:00 99 06/30/20 20:00 Mechanical Ventilator Mechanical Ventilator 06/30/20 20:00 70 06/30/20 20:00 97.0 91 14 100/54 (69) 100 06/30/20 19:45 93 19 102/56 (71) 100 06/30/20 19:30 92 18 70 06/30/20 19:30 92 16 105/49 (67) 100 06/30/20 19:15 92 19 99/60 (73) 98 06/30/20 19:00 92 15 102/63 (76) 99 06/30/20 19:00 15 Mechanical Ventilator 70 06/30/20 19:00 15 102/63 Mechanical Ventilator 70 06/30/20 18:30 93 18 96/62 (73) 97 06/30/20 18:00 20 Mechanical Ventilator 70 06/30/20 18:00 20 100/64 Mechanical Ventilator 70 06/30/20 18:00 95 18 100/63 (75) 99 2/7/21 17:50 18 Mechanical Ventilator 70 06/30/20 17:00 18 Mechanical Ventilator 70 06/30/20 17:00 18 111/62 Mechanical Ventilator 70 06/30/20 17:00 97 25 106/63 (77) 96 06/30/20 16:30 96 24 107/62 (77) 95 06/30/20 16:00 97.4 100 20 114/64 (81) 95 06/30/20 16:00 20 Mechanical Ventilator 70 06/30/20 16:00 20 114/64 Mechanical Ventilator 70 06/30/20 16:00 70 06/30/20 16:00 99 06/30/20 16:00 Mechanical Ventilator Mechanical Ventilator 06/30/20 15:31 20 105/58 Mechanical Ventilator 70 06/30/20 15:00 100 20 104/64 (77) 96 06/30/20 15:00 20 Mechanical Ventilator 70 06/30/20 15:00 20 104/64 Mechanical Ventilator 70 06/30/20 14:55 98 17 70 06/30/20 14:30 101 17 97/53 (68) 100 06/30/20 14:00 18 Mechanical Ventilator 70 06/30/20 14:00 18 94/56 Mechanical Ventilator 70 06/30/20 14:00 101 18 94/56 (69) 100 06/30/20 13:00 20 Mechanical Ventilator 70 06/30/20 13:00 20 111/53 Mechanical Ventilator 70 06/30/20 13:00 100 18 111/53 (72) 100 06/30/20 12:00 Mechanical Ventilator Mechanical Ventilator 06/30/20 12:00 100 06/30/20 12:00 20 Mechanical Ventilator 70 06/30/20 12:00 20 110/58 Mechanical Ventilator 70 06/30/20 12:00 97.5 102 18 110/58 (75) 100 06/30/20 12:00 70 06/30/20 11:47 103 22 70 06/30/20 11:05 106 27 70 06/30/20 11:00 18 Mechanical Ventilator 70 06/30/20 11:00 18 120/73 Mechanical Ventilator 70 06/30/20 11:00 104 21 120/73 (89) 98 06/30/20 10:00 107 20 123/80 (94) 99 06/30/20 10:00 18 Mechanical Ventilator 70 06/30/20 10:00 18 127/81 Mechanical Ventilator 70 06/30/20 09:30 107 26 125/66 (85) 97 Intake and Output 06/30/20 07/01/20 19:00 07:00 Intake Total 1761.88 ml 1020 ml Output Total 1850 ml 125 ml Balance -88.12 ml 895 ml IV Total 1481.88 ml 690 ml Tube Feeding 60 ml 330 ml Other 220 ml Output Urine Total 1850 ml 125 ml Stool Total 0 ml # Voids 10 Laboratory Tests 06/30/20 17:09: POC Whole Blood Glucose 125H 07/01/20 04:55: White Blood Count 6.8, Red Blood Count 3.22L, Hemoglobin 9.3L, Hematocrit 30.1L, Mean Corpuscular Volume 93, Mean Corpuscular Hemoglobin 28.8, Mean Corpuscular Hemoglobin Concent 30.8L, Red Cell Distribution Width 16.6H, Platelet Count 218, Mean Platelet Volume 8.6, Neutrophils (%) (Auto) 67.2, Lymphocytes (%) (Auto) 21.1, Monocytes (%) (Auto) 5.4, Eosinophils (%) (Auto) 5.5H, Basophils (%) (Auto) 0.9, Prothrombin Time 12.0H, Prothromb Time International Ratio 1.1, Activated Partial Thromboplast Time 28, Sodium Level 140, Potassium Level 3.4L, Chloride Level 98, Carbon Dioxide Level 41*H, Anion Gap 1L, Blood Urea Nitrogen 7, Creatinine 0.4L, Estimat Glomerular Filtration Rate > 60, Glucose Level 120H, Calcium Level 9.0, Phosphorus Level 3.1, Magnesium Level 2.0, Total Bilirubin 1.5H, Direct Bilirubin 0.4H, Aspartate Amino Transf (AST/SGOT) 33, Alanine Aminotransferase (ALT/SGPT) 23, Alkaline Phosphatase 86, C-Reactive Protein, Quantitative 7.8H, Pro-B-Type Natriuretic Peptide 913H, Total Protein 6.6, Albumin 2.3L 07/01/20 05:15: POC Whole Blood Glucose 145H Height (Feet): 5 Height (Inches): 5.00 Weight (Pounds): 308 General Appearance: lethargic EENT: normal ENT inspection Neck: non-tender Cardiovascular: normal peripheral pulses, normal rate, regular rhythm Respiratory/Chest: chest wall non-tender, lungs clear, normal breath sounds Abdomen: normal bowel sounds, non tender, soft Extremities: normal inspection Edema: no edema noted Arm (L), no edema noted Arm (R), no edema noted Leg (L), no edema noted Leg (R), no edema noted Pedal (L), no edema noted Pedal (R), no edema noted Generalized Neurologic: motor weakness Skin: normal pigmentation, warm/dry Assessment/Plan Problem List: (1) Hypoxia ICD Codes: R09.02 - Hypoxemia SNOMED: 484373535 (2) Respiratory failure ICD Codes: J96.90 - Respiratory failure, unspecified, unspecified whether with hypoxia or hypercapnia SNOMED: 603684791 (3) Respiratory distress ICD Codes: R06.03 - Acute respiratory distress; J12.82 - Pneumonia due to coronavirus disease 2019 SNOMED: 642385178 (4) Pneumonia due to COVID-19 virus ICD Codes: U07.1 - COVID-19; J12.82 - Pneumonia due to coronavirus disease 2019 SNOMED: 196089562908816787 Status: unchanged Assessment/Plan: vent abx id pulm f/u cbc bmp am Tank Del Cid DO Jul 01, 2020 09:30
--- NOTE | 2020-07-01 09:45 | NUR ---
NURSE NOTES: Dr. Tyler updated on about the CO2 of 41 on the chemistry lab for this morning. Not verbal orders given at this time. but will review labs and place orders accordingly. Addendum: 07/01/20 at 1656 by Alfonzo Miramontes RN order for 10mEq of potassium chloride placed for potassium of 3.4.
--- NOTE | 2020-07-01 09:55 | NUR ---
ABG drawn at this time. Results reported to RAKEL Mejía.
--- NOTE | 2020-07-01 09:58 | Nephrology Progress Note ---
Assessment/Plan Problem List: (1) DEVENDRA (acute kidney injury) (2) Morbid obesity (3) Diabetes mellitus out of control (4) Pneumonia due to COVID-19 virus (5) Respiratory failure Assessment Acute renal failure Obstructive uropathy, clogged Lennon Respiratory failure COVID-19 pneumonia Morbid obesity Plan July 01: Remains on 70% FiO2. Full code. Intubated on ventilator. Retaining CO2. Discussed with RN. Will do ABG today. Albumin bolus given. 1 dose of Diamox given. June 30: Status quo. Labs reviewed. Abnormal electrolytes addressed. Remains full code. Remains on ventilator. Magnesium sulfate 4 gram IVPB given. June 29: Full code. Intubated on ventilator. Labs reviewed. Stable from renal standpoint of view. Continue per consultants. June 28: Remains full code. Remains intubated on ventilator. Labs reviewed. Vitamin D supplement ordered. Continue to monitor renal parameters. Continue per consultants. June 27: Remains full code. Intubated on ventilator. Labs reviewed. Abnormal electrolyte addressed. Continue to monitor renal parameters and electrolytes. Continue per consultants. June 26: Labs reviewed. Remains full code. Remains intubated. Back on NGT feeding. Continue to monitor renal parameters. June 25: Labs reviewed. Renal parameters stable. Remains full code. Due to positional status patient could not be fed via NG tube. Starting TPN? Is being entertained. Continue per consultants. June 24: Labs reviewed. Renal parameters stable. Remains full code. Remains intubated on ventilator. Continue per consultants. June 23: Labs reviewed. Renal parameters stable. Discussed with RN. Abnormal electrolyte addressed. Remains full code. Remains on ventilator. Continue per consultants. June 22: Labs reviewed. Low potassium addressed. Discussed with RAKEL Moran. Patient full code. Remains on ventilator. Continue to monitor renal parameters. June 21. Labs reviewed. Abnormal electrolyte addressed. Full code. Remains on ventilator. Medication list reviewed. Continue per pulmonary management. DC IV fluid, resume Lasix daily, check chest x-ray. June 20: Labs reviewed. Abnormal electrolytes. Patient remains full code. Continue per consultants. Noted and addressed June 19: Labs reviewed. Abnormal electrolytes noted and addressed. Remains intubated on ventilator. Remains full code. June 18: Labs reviewed. Remains intubated on ventilator. Full code. Abnormal electrolyte addressed. Continue as is. June 17: Labs reviewed. Abnormal electrolytes addressed. Patient remains full code and intubated on ventilator. Continue per consultants. Renal parameters are within normal limits. June 16: Labs reviewed. Potassium chloride replaced. Remains full code. Remains intubated on ventilator. Continue per consultants. Continue to monitor renal parameters. June 15: Labs reviewed. Serum creatinine 1. Stable from renal standpoint to view. Continue per consultants. June 14: Labs reviewed. Full code. Serum creatinine of 3.5 down to 1.4. Low potassium addressed. Continue per current treatment plan. Continue to monitor renal parameters. Midodrine started. Albumin bolus given. Previously: DC Lasix drip Increase Protonix dose Monitor renal parameters, electrolytes Per orders Subjective ROS Limited/Unobtainable: Yes Objective Objective Last 24 Hour Vital Signs Date Time Temp Pulse Resp B/P (MAP) Pulse Ox O2 Delivery O2 Flow Rate FiO2 07/01/20 09:30 25 91/53 Mechanical Ventilator 70 07/01/20 06:30 86 20 07/01/20 06:15 101 106/63 (77) 98 07/01/20 06:05 104 105/51 (69) 89 07/01/20 06:00 104 108/72 (84) 90 07/01/20 05:45 105 26 116/71 (86) 88 07/01/20 05:30 102 23 109/63 (78) 93 07/01/20 05:19 18 Mechanical Ventilator 07/01/20 05:15 110 33 118/68 (85) 84 07/01/20 05:00 100 21 119/62 (81) 95 07/01/20 04:45 96 18 117/64 (81) 100 07/01/20 04:30 101 30 117/65 (82) 86 07/01/20 04:15 96 22 98 07/01/20 04:00 97.3 95 20 106/58 (74) 100 07/01/20 04:00 Mechanical Ventilator Mechanical Ventilator 07/01/20 04:00 99 07/01/20 04:00 70 07/01/20 03:45 96 25 109/63 (78) 98 07/01/20 03:30 92 18 110/67 (81) 97 07/01/20 03:15 93 21 105/63 (77) 100 07/01/20 03:00 101 30 114/69 (84) 87 07/01/20 02:45 96 21 104/60 (75) 100 07/01/20 02:30 96 22 107/58 (74) 97 07/01/20 02:00 99 23 111/57 (75) 97 07/01/20 01:45 98 19 110/66 (81) 91 07/01/20 01:30 98 22 106/58 (74) 97 07/01/20 01:15 96 22 109/59 (76) 94 07/01/20 01:00 95 22 108/57 (74) 97 07/01/20 00:45 93 22 101/60 (74) 100 07/01/20 00:43 94 23 70 07/01/20 00:30 97.1 89 23 108/64 (79) 95 07/01/20 00:15 91 19 103/59 (74) 100 07/01/20 00:00 70 07/01/20 00:00 99 07/01/20 00:00 91 20 102/62 (75) 100 06/30/20 23:45 89 18 107/62 (77) 98 06/30/20 23:30 90 19 109/59 (76) 98 06/30/20 23:15 92 20 105/58 (74) 100 06/30/20 23:00 87 17 105/61 (76) 100 06/30/20 22:45 91 21 97/65 (76) 100 06/30/20 22:30 93 20 103/64 (77) 100 06/30/20 22:15 94 21 102/63 (76) 99 06/30/20 22:00 92 19 109/57 (74) 100 06/30/20 21:45 97 22 119/68 (85) 88 06/30/20 21:30 96 24 112/63 (79) 97 06/30/20 21:00 95 22 117/69 (85) 92 06/30/20 20:15 91 19 95/57 (70) 100 06/30/20 20:00 99 06/30/20 20:00 Mechanical Ventilator Mechanical Ventilator 06/30/20 20:00 70 06/30/20 20:00 97.0 91 14 100/54 (69) 100 06/30/20 19:45 93 19 102/56 (71) 100 06/30/20 19:30 92 18 70 06/30/20 19:30 92 16 105/49 (67) 100 06/30/20 19:15 92 19 99/60 (73) 98 06/30/20 19:00 92 15 102/63 (76) 99 06/30/20 19:00 15 Mechanical Ventilator 70 06/30/20 19:00 15 102/63 Mechanical Ventilator 70 06/30/20 18:30 93 18 96/62 (73) 97 06/30/20 18:00 20 Mechanical Ventilator 70 06/30/20 18:00 20 100/64 Mechanical Ventilator 70 06/30/20 18:00 95 18 100/63 (75) 99 06/30/20 17:50 18 Mechanical Ventilator 70 06/30/20 17:00 18 Mechanical Ventilator 70 06/30/20 17:00 18 111/62 Mechanical Ventilator 70 06/30/20 17:00 97 25 106/63 (77) 96 06/30/20 16:30 96 24 107/62 (77) 95 06/30/20 16:00 97.4 100 20 114/64 (81) 95 06/30/20 16:00 20 Mechanical Ventilator 70 06/30/20 16:00 20 114/64 Mechanical Ventilator 70 06/30/20 16:00 70 06/30/20 16:00 99 06/30/20 16:00 Mechanical Ventilator Mechanical Ventilator 06/30/20 15:31 20 105/58 Mechanical Ventilator 70 06/30/20 15:00 100 20 104/64 (77) 96 06/30/20 15:00 20 Mechanical Ventilator 70 06/30/20 15:00 20 104/64 Mechanical Ventilator 70 06/30/20 14:55 98 17 70 06/30/20 14:30 101 17 97/53 (68) 100 06/30/20 14:00 18 Mechanical Ventilator 70 06/30/20 14:00 18 94/56 Mechanical Ventilator 70 06/30/20 14:00 101 18 94/56 (69) 100 06/30/20 13:00 20 Mechanical Ventilator 70 06/30/20 13:00 20 111/53 Mechanical Ventilator 70 06/30/20 13:00 100 18 111/53 (72) 100 06/30/20 12:00 Mechanical Ventilator Mechanical Ventilator 06/30/20 12:00 100 06/30/20 12:00 20 Mechanical Ventilator 70 06/30/20 12:00 20 110/58 Mechanical Ventilator 70 06/30/20 12:00 97.5 102 18 110/58 (75) 100 06/30/20 12:00 70 06/30/20 11:47 103 22 70 06/30/20 11:05 106 27 70 06/30/20 11:00 18 Mechanical Ventilator 70 06/30/20 11:00 18 120/73 Mechanical Ventilator 70 06/30/20 11:00 104 21 120/73 (89) 98 06/30/20 10:00 107 20 123/80 (94) 99 06/30/20 10:00 18 Mechanical Ventilator 70 06/30/20 10:00 18 127/81 Mechanical Ventilator 70 Intake and Output 06/30/20 07/01/20 19:00 07:00 Intake Total 1761.88 ml 1020 ml Output Total 1850 ml 125 ml Balance -88.12 ml 895 ml IV Total 1481.88 ml 690 ml Tube Feeding 60 ml 330 ml Other 220 ml Output Urine Total 1850 ml 125 ml Stool Total 0 ml # Voids 10 Current Medications Medications (Trade) Dose Ordered Sig/Zelda Route PRN Reason Start Time Stop Time Status Last Admin Dose Admin Acetaminophen (Tylenol) 650 mg Q4H PRN NG Temp >100.5 06/29/20 10:15 07/29/20 10:14 Acetaminophen (Tylenol) 650 mg Q6H PRN NG Mild Pain (Pain Scale 1-3) 06/29/20 10:15 07/29/20 10:14 Chlorhexidine Gluconate (Inna-Hex 2%) 1 applic DAILY@2000 TOPIC 05/30/20 20:00 08/28/20 19:59 06/30/20 20:04 Dextrose (Dextrose 50%) 25 ml Q30M PRN IV Hypoglycemia 06/05/20 10:45 09/03/20 10:44 Dextrose (Dextrose 50%) 50 ml Q30M PRN IV Hypoglycemia 06/05/20 10:45 09/03/20 10:44 Dextrose/Sodium Chloride 1,000 ml @ 50 mls/hr Q20H IV 06/24/20 16:30 07/24/20 16:29 06/30/20 10:00 Docusate Sodium (Colace) 100 mg Q12HR GT 06/07/20 21:00 07/07/20 20:59 2/7/21 20:04 Enoxaparin Sodium (Lovenox) 40 mg DAILY SUBQ 05/30/20 10:00 08/28/20 09:59 06/30/20 09:38 Fentanyl Citrate 250 ml @ 1 mls/hr Q24H IV 07/01/20 09:15 07/03/20 09:14 07/01/20 09:30 Furosemide (Lasix) 40 mg DAILY IV 06/22/20 09:00 07/22/20 08:59 06/30/20 09:39 Insulin Aspart (NovoLOG) EVERY 6 HOURS SUBQ 06/07/20 00:00 09/03/20 11:59 07/01/20 05:20 Midazolam HCl 100 mg/Sodium Chloride 200 ml @ 2 mls/hr Q24H PRN IV sedation 06/29/20 15:25 07/01/20 15:24 07/01/20 05:19 Midodrine (Pro-Amatine) 10 mg Q8HR GT 06/30/20 14:00 09/12/20 13:59 07/01/20 05:19 Pantoprazole (Protonix) 40 mg Q12HR IVP 06/13/20 21:00 07/03/20 08:59 06/30/20 20:05 Polyethylene Glycol (Miralax) 17 gm BEDTIME GT 06/07/20 21:00 07/07/20 20:59 06/30/20 20:05 Potassium Chloride 100 ml @ 100 mls/hr Q1H IVPB 07/01/20 09:00 07/01/20 09:59 Vitamin D (Vitamin D) 5,000 unit DAILY GT 06/28/20 09:00 07/28/20 08:59 06/30/20 09:39 Laboratory Tests 06/30/20 17:09: POC Whole Blood Glucose 125H 07/01/20 04:55: White Blood Count 6.8, Red Blood Count 3.22L, Hemoglobin 9.3L, Hematocrit 30.1L, Mean Corpuscular Volume 93, Mean Corpuscular Hemoglobin 28.8, Mean Corpuscular Hemoglobin Concent 30.8L, Red Cell Distribution Width 16.6H, Platelet Count 218, Mean Platelet Volume 8.6, Neutrophils (%) (Auto) 67.2, Lymphocytes (%) (Auto) 21.1, Monocytes (%) (Auto) 5.4, Eosinophils (%) (Auto) 5.5H, Basophils (%) (Auto) 0.9, Prothrombin Time 12.0H, Prothromb Time International Ratio 1.1, Activated Partial Thromboplast Time 28, Sodium Level 140, Potassium Level 3.4L, Chloride Level 98, Carbon Dioxide Level 41*H, Anion Gap 1L, Blood Urea Nitrogen 7, Creatinine 0.4L, Estimat Glomerular Filtration Rate > 60, Glucose Level 120H, Calcium Level 9.0, Phosphorus Level 3.1, Magnesium Level 2.0, Total Bilirubin 1.5H, Direct Bilirubin 0.4H, Aspartate Amino Transf (AST/SGOT) 33, Alanine Aminotransferase (ALT/SGPT) 23, Alkaline Phosphatase 86, C-Reactive Protein, Quantitative 7.8H, Pro-B-Type Natriuretic Peptide 913H, Total Protein 6.6, Albumin 2.3L 07/01/20 05:15: POC Whole Blood Glucose 145H Height (Feet): 5 Height (Inches): 5.00 Weight (Pounds): 308 General Appearance: moderate distress EENT: other - Intubated with bilateral chest tube Cardiovascular: tachycardia Respiratory/Chest: decreased breath sounds Abdomen: distended Rigo Tyler MD Jul 01, 2020 09:58
[2020-07-01] MEDS: Vitamin D 1000 units Tab GT SCH (10:26)
[2020-07-01] MEDS: Pantoprazole Inj IVP SCH ×2 (10:27→20:33)
[2020-07-01] MEDS: Docusate 100mg/10ml Liq GT SCH ×2 (10:27→20:30)
[2020-07-01] MEDS: Enoxaparin 40mg Inj SUBQ SCH (10:28)
[2020-07-01] MEDS: D5 1/2NS 1,000 ML IV SCH (10:28)
--- NOTE | 2020-07-01 11:05 | Infectious Diseases Prog Note ---
Assessment/Plan Assessment/Plan antibiotics : none A 1. covid 19 pneumonia on 70 % Fi O2 with 100 % saturation s/p remdesivir s/p solumedrol 2. respiratory failure 3. serratia pneumonia s/p rx P 1. continue off antibiotics 2. continue isolation Subjective ROS Limited/Unobtainable: Yes Allergies: Coded Allergies: No Known Allergies (Unverified , 05/28/20) Objective Last 24 Hour Vital Signs Date Time Temp Pulse Resp B/P (MAP) Pulse Ox O2 Delivery O2 Flow Rate FiO2 07/01/20 09:30 25 91/53 Mechanical Ventilator 70 07/01/20 06:30 86 20 07/01/20 06:15 101 106/63 (77) 98 07/01/20 06:05 104 105/51 (69) 89 07/01/20 06:00 104 108/72 (84) 90 07/01/20 05:45 105 26 116/71 (86) 88 07/01/20 05:30 102 23 109/63 (78) 93 07/01/20 05:19 18 Mechanical Ventilator 07/01/20 05:15 110 33 118/68 (85) 84 07/01/20 05:00 100 21 119/62 (81) 95 07/01/20 04:45 96 18 117/64 (81) 100 07/01/20 04:30 101 30 117/65 (82) 86 07/01/20 04:15 96 22 98 07/01/20 04:00 97.3 95 20 106/58 (74) 100 07/01/20 04:00 Mechanical Ventilator Mechanical Ventilator 07/01/20 04:00 99 07/01/20 04:00 70 07/01/20 03:45 96 25 109/63 (78) 98 07/01/20 03:30 92 18 110/67 (81) 97 07/01/20 03:15 93 21 105/63 (77) 100 07/01/20 03:00 101 30 114/69 (84) 87 07/01/20 02:45 96 21 104/60 (75) 100 07/01/20 02:30 96 22 107/58 (74) 97 07/01/20 02:00 99 23 111/57 (75) 97 07/01/20 01:45 98 19 110/66 (81) 91 07/01/20 01:30 98 22 106/58 (74) 97 07/01/20 01:15 96 22 109/59 (76) 94 07/01/20 01:00 95 22 108/57 (74) 97 07/01/20 00:45 93 22 101/60 (74) 100 07/01/20 00:43 94 23 70 07/01/20 00:30 97.1 89 23 108/64 (79) 95 07/01/20 00:15 91 19 103/59 (74) 100 07/01/20 00:00 70 07/01/20 00:00 99 07/01/20 00:00 91 20 102/62 (75) 100 06/30/20 23:45 89 18 107/62 (77) 98 06/30/20 23:30 90 19 109/59 (76) 98 06/30/20 23:15 92 20 105/58 (74) 100 06/30/20 23:00 87 17 105/61 (76) 100 06/30/20 22:45 91 21 97/65 (76) 100 06/30/20 22:30 93 20 103/64 (77) 100 06/30/20 22:15 94 21 102/63 (76) 99 06/30/20 22:00 92 19 109/57 (74) 100 06/30/20 21:45 97 22 119/68 (85) 88 06/30/20 21:30 96 24 112/63 (79) 97 06/30/20 21:00 95 22 117/69 (85) 92 06/30/20 20:15 91 19 95/57 (70) 100 06/30/20 20:00 99 06/30/20 20:00 Mechanical Ventilator Mechanical Ventilator 06/30/20 20:00 70 06/30/20 20:00 97.0 91 14 100/54 (69) 100 06/30/20 19:45 93 19 102/56 (71) 100 06/30/20 19:30 92 18 70 06/30/20 19:30 92 16 105/49 (67) 100 06/30/20 19:15 92 19 99/60 (73) 98 06/30/20 19:00 92 15 102/63 (76) 99 06/30/20 19:00 15 Mechanical Ventilator 70 06/30/20 19:00 15 102/63 Mechanical Ventilator 70 06/30/20 18:30 93 18 96/62 (73) 97 06/30/20 18:00 20 Mechanical Ventilator 70 06/30/20 18:00 20 100/64 Mechanical Ventilator 70 06/30/20 18:00 95 18 100/63 (75) 99 06/30/20 17:50 18 Mechanical Ventilator 70 06/30/20 17:00 18 Mechanical Ventilator 70 06/30/20 17:00 18 111/62 Mechanical Ventilator 70 06/30/20 17:00 97 25 106/63 (77) 96 06/30/20 16:30 96 24 107/62 (77) 95 06/30/20 16:00 97.4 100 20 114/64 (81) 95 06/30/20 16:00 20 Mechanical Ventilator 70 06/30/20 16:00 20 114/64 Mechanical Ventilator 70 06/30/20 16:00 70 06/30/20 16:00 99 06/30/20 16:00 Mechanical Ventilator Mechanical Ventilator 06/30/20 15:31 20 105/58 Mechanical Ventilator 70 06/30/20 15:00 100 20 104/64 (77) 96 06/30/20 15:00 20 Mechanical Ventilator 70 06/30/20 15:00 20 104/64 Mechanical Ventilator 70 06/30/20 14:55 98 17 70 06/30/20 14:30 101 17 97/53 (68) 100 06/30/20 14:00 18 Mechanical Ventilator 70 06/30/20 14:00 18 94/56 Mechanical Ventilator 70 06/30/20 14:00 101 18 94/56 (69) 100 06/30/20 13:00 20 Mechanical Ventilator 70 06/30/20 13:00 20 111/53 Mechanical Ventilator 70 06/30/20 13:00 100 18 111/53 (72) 100 06/30/20 12:00 Mechanical Ventilator Mechanical Ventilator 06/30/20 12:00 100 06/30/20 12:00 20 Mechanical Ventilator 70 06/30/20 12:00 20 110/58 Mechanical Ventilator 70 06/30/20 12:00 97.5 102 18 110/58 (75) 100 06/30/20 12:00 70 06/30/20 11:47 103 22 70 06/30/20 11:05 106 27 70 Height (Feet): 5 Height (Inches): 5.00 Weight (Pounds): 308 HEENT: other - intubated Laboratory Tests Test 06/30/20 17:09 07/01/20 04:55 07/01/20 05:15 07/01/20 09:55 POC Whole Blood Glucose 125 MG/DL (74-106) H 145 MG/DL (74-106) H White Blood Count 6.8 K/UL (4.8-10.8) Red Blood Count 3.22 M/UL (4.20-5.40) L Hemoglobin 9.3 G/DL (12.0-16.0) L Hematocrit 30.1 % (37.0-47.0) L Mean Corpuscular Volume 93 FL (80-99) Mean Corpuscular Hemoglobin 28.8 PG (27.0-31.0) Mean Corpuscular Hemoglobin Concent 30.8 G/DL (32.0-36.0) L Red Cell Distribution Width 16.6 % (11.6-14.8) H Platelet Count 218 K/UL (150-450) Mean Platelet Volume 8.6 FL (6.5-10.1) Neutrophils (%) (Auto) 67.2 % (45.0-75.0) Lymphocytes (%) (Auto) 21.1 % (20.0-45.0) Monocytes (%) (Auto) 5.4 % (1.0-10.0) Eosinophils (%) (Auto) 5.5 % (0.0-3.0) H Basophils (%) (Auto) 0.9 % (0.0-2.0) Prothrombin Time 12.0 SEC (9.30-11.50) H Prothromb Time International Ratio 1.1 (0.9-1.1) Activated Partial Thromboplast Time 28 SEC (23-33) Sodium Level 140 MMOL/L (136-145) Potassium Level 3.4 MMOL/L (3.5-5.1) L Chloride Level 98 MMOL/L (98-107) Carbon Dioxide Level 41 MMOL/L (21-32) *H Anion Gap 1 mmol/L (5-15) L Blood Urea Nitrogen 7 mg/dL (7-18) Creatinine 0.4 MG/DL (0.55-1.30) L Estimat Glomerular Filtration Rate > 60 mL/min (>60) Glucose Level 120 MG/DL (74-106) H Calcium Level 9.0 MG/DL (8.5-10.1) Phosphorus Level 3.1 MG/DL (2.5-4.9) Magnesium Level 2.0 MG/DL (1.8-2.4) Total Bilirubin 1.5 MG/DL (0.2-1.0) H Direct Bilirubin 0.4 MG/DL (0.0-0.3) H Aspartate Amino Transf (AST/SGOT) 33 U/L (15-37) Alanine Aminotransferase (ALT/SGPT) 23 U/L (12-78) Alkaline Phosphatase 86 U/L (46-116) C-Reactive Protein, Quantitative 7.8 mg/dL (0.00-0.90) H Pro-B-Type Natriuretic Peptide 913 pg/mL (0-125) H Total Protein 6.6 G/DL (6.4-8.2) Albumin 2.3 G/DL (3.4-5.0) L Arterial Blood pH 7.373 (7.350-7.450) Arterial Blood Partial Pressure CO2 78.9 mmHg (35.0-45.0) *H Arterial Blood Partial Pressure O2 71.0 mmHg (75.0-100.0) L Arterial Blood HCO3 44.9 mmol/L (22.0-26.0) *H Arterial Blood Oxygen Saturation 93.5 % (95-100) L Arterial Blood Base Excess 17.0 (-2-2) *H Jeremiah Test Positive Current Medications Medications (Trade) Dose Ordered Sig/Zelda Route PRN Reason Start Time Stop Time Status Last Admin Dose Admin Acetaminophen (Tylenol) 650 mg Q4H PRN NG Temp >100.5 06/29/20 10:15 07/29/20 10:14 Acetaminophen (Tylenol) 650 mg Q6H PRN NG Mild Pain (Pain Scale 1-3) 06/29/20 10:15 07/29/20 10:14 Acetazolamide (Diamox) 250 mg ONCE ORAL 07/01/20 10:00 07/01/20 12:00 07/01/20 10:30 Chlorhexidine Gluconate (Inna-Hex 2%) 1 applic DAILY@1999 TOPIC 05/30/20 20:00 08/28/20 19:59 06/30/20 20:04 Dextrose (Dextrose 50%) 25 ml Q30M PRN IV Hypoglycemia 06/05/20 10:45 09/03/20 10:44 Dextrose (Dextrose 50%) 50 ml Q30M PRN IV Hypoglycemia 06/05/20 10:45 09/03/20 10:44 Dextrose/Sodium Chloride 1,000 ml @ 50 mls/hr Q20H IV 06/24/20 16:30 07/24/20 16:29 07/01/20 10:28 Docusate Sodium (Colace) 100 mg Q12HR GT 06/07/20 21:00 07/07/20 20:59 07/01/20 10:27 Enoxaparin Sodium (Lovenox) 40 mg DAILY SUBQ 05/30/20 10:00 08/28/20 09:59 07/01/20 10:28 Fentanyl Citrate 250 ml @ 1 mls/hr Q24H IV 07/01/20 09:15 07/03/20 09:14 07/01/20 09:30 Furosemide (Lasix) 40 mg DAILY IV 06/22/20 09:00 07/22/20 08:59 07/01/20 10:27 Insulin Aspart (NovoLOG) EVERY 6 HOURS SUBQ 06/07/20 00:00 09/03/20 11:59 07/01/20 05:20 Midazolam HCl 100 mg/Sodium Chloride 200 ml @ 2 mls/hr Q24H PRN IV sedation 06/29/20 15:25 07/01/20 15:24 07/01/20 05:19 Midodrine (Pro-Amatine) 10 mg Q8HR GT 06/30/20 14:00 09/12/20 13:59 07/01/20 05:19 Pantoprazole (Protonix) 40 mg Q12HR IVP 06/13/20 21:00 07/03/20 08:59 07/01/20 10:27 Polyethylene Glycol (Miralax) 17 gm BEDTIME GT 06/07/20 21:00 07/07/20 20:59 06/30/20 20:05 Vitamin D (Vitamin D) 5,000 unit DAILY GT 06/28/20 09:00 07/28/20 08:59 07/01/20 10:26 Fili Mcelroy MD Jul 01, 2020 11:05
--- NOTE | 2020-07-01 11:55 | NUR ---
NURSE NOTES: Dr. Nava informed of the patient FIo2 remains remains at 70% with peep of 7 with saturations of 96% with Respiration rate of 22, Tube feeding has been increased to 50ml/hr. remains on fentanyl drip at 150mcg/hr at rate of 15ml/hr and versed at 10mg/hr at rate of 20ml/hr. gave abg results and no orders given to change ventilator setting of AC 15, TV: 600, FIo2 of 70% and peep of 7, will continue to monitor patient on current setting.
--- NOTE | 2020-07-01 13:28 | Pulmonology Progress Note ---
Subjective ROS Limited/Unobtainable: Yes Interval Events: Remains intubated Constitutional: Denies: fever HEENT: Repors: no symptoms Respiratory: Reports: no symptoms Cardiovascular: Reports: no symptoms Gastrointestinal/Abdominal: Reports: no symptoms Genitourinary: Reports: no symptoms Allergies: Coded Allergies: No Known Allergies (Unverified , 05/28/20) All Systems: reviewed and negative except above Objective Last 24 Hour Vital Signs Date Time Temp Pulse Resp B/P (MAP) Pulse Ox O2 Delivery O2 Flow Rate FiO2 07/01/20 12:30 113 24 100/62 (75) 96 07/01/20 12:00 Mechanical Ventilator Mechanical Ventilator 07/01/20 12:00 70 07/01/20 12:00 99.9 112 23 104/59 (74) 96 07/01/20 11:30 108 22 110/62 (78) 95 07/01/20 11:00 106 23 96/56 (69) 96 07/01/20 10:30 107 22 102/61 (75) 97 07/01/20 10:00 106 22 108/63 (78) 96 07/01/20 09:30 25 91/53 Mechanical Ventilator 70 07/01/20 09:30 102 24 86/58 (67) 100 07/01/20 09:00 103 22 99/55 (70) 99 07/01/20 08:30 109 23 112/69 (83) 89 07/01/20 08:00 70 07/01/20 08:00 97.7 101 22 111/57 (75) 98 07/01/20 08:00 Mechanical Ventilator Mechanical Ventilator 07/01/20 08:00 99 07/01/20 07:30 103 23 110/64 (79) 98 07/01/20 07:00 103 22 107/58 (74) 96 07/01/20 06:30 86 20 07/01/20 06:15 101 106/63 (77) 98 07/01/20 06:05 104 105/51 (69) 89 07/01/20 06:00 104 108/72 (84) 90 07/01/20 05:45 105 26 116/71 (86) 88 07/01/20 05:30 102 23 109/63 (78) 93 07/01/20 05:19 18 Mechanical Ventilator 07/01/20 05:15 110 33 118/68 (85) 84 07/01/20 05:00 100 21 119/62 (81) 95 07/01/20 04:45 96 18 117/64 (81) 100 07/01/20 04:30 101 30 117/65 (82) 86 07/01/20 04:15 96 22 98 07/01/20 04:00 97.3 95 20 106/58 (74) 100 07/01/20 04:00 Mechanical Ventilator Mechanical Ventilator 07/01/20 04:00 99 07/01/20 04:00 70 07/01/20 03:45 96 25 109/63 (78) 98 07/01/20 03:30 92 18 110/67 (81) 97 07/01/20 03:15 93 21 105/63 (77) 100 07/01/20 03:00 101 30 114/69 (84) 87 07/01/20 02:45 96 21 104/60 (75) 100 07/01/20 02:30 96 22 107/58 (74) 97 07/01/20 02:00 99 23 111/57 (75) 97 07/01/20 01:45 98 19 110/66 (81) 91 07/01/20 01:30 98 22 106/58 (74) 97 07/01/20 01:15 96 22 109/59 (76) 94 07/01/20 01:00 95 22 108/57 (74) 97 07/01/20 00:45 93 22 101/60 (74) 100 07/01/20 00:43 94 23 70 07/01/20 00:30 97.1 89 23 108/64 (79) 95 07/01/20 00:15 91 19 103/59 (74) 100 07/01/20 00:00 70 07/01/20 00:00 99 07/01/20 00:00 91 20 102/62 (75) 100 06/30/20 23:45 89 18 107/62 (77) 98 06/30/20 23:30 90 19 109/59 (76) 98 06/30/20 23:15 92 20 105/58 (74) 100 06/30/20 23:00 87 17 105/61 (76) 100 06/30/20 22:45 91 21 97/65 (76) 100 06/30/20 22:30 93 20 103/64 (77) 100 06/30/20 22:15 94 21 102/63 (76) 99 06/30/20 22:00 92 19 109/57 (74) 100 06/30/20 21:45 97 22 119/68 (85) 88 06/30/20 21:30 96 24 112/63 (79) 97 06/30/20 21:00 95 22 117/69 (85) 92 06/30/20 20:15 91 19 95/57 (70) 100 06/30/20 20:00 99 06/30/20 20:00 Mechanical Ventilator Mechanical Ventilator 06/30/20 20:00 70 06/30/20 20:00 97.0 91 14 100/54 (69) 100 06/30/20 19:45 93 19 102/56 (71) 100 06/30/20 19:30 92 18 70 06/30/20 19:30 92 16 105/49 (67) 100 06/30/20 19:15 92 19 99/60 (73) 98 06/30/20 19:00 92 15 102/63 (76) 99 06/30/20 19:00 15 Mechanical Ventilator 70 06/30/20 19:00 15 102/63 Mechanical Ventilator 70 06/30/20 18:30 93 18 96/62 (73) 97 06/30/20 18:00 20 Mechanical Ventilator 70 06/30/20 18:00 20 100/64 Mechanical Ventilator 70 06/30/20 18:00 95 18 100/63 (75) 99 06/30/20 17:50 18 Mechanical Ventilator 70 06/30/20 17:00 18 Mechanical Ventilator 70 06/30/20 17:00 18 111/62 Mechanical Ventilator 70 06/30/20 17:00 97 25 106/63 (77) 96 06/30/20 16:30 96 24 107/62 (77) 95 06/30/20 16:00 97.4 100 20 114/64 (81) 95 06/30/20 16:00 20 Mechanical Ventilator 70 06/30/20 16:00 20 114/64 Mechanical Ventilator 70 06/30/20 16:00 70 06/30/20 16:00 99 06/30/20 16:00 Mechanical Ventilator Mechanical Ventilator 06/30/20 15:31 20 105/58 Mechanical Ventilator 70 06/30/20 15:00 100 20 104/64 (77) 96 06/30/20 15:00 20 Mechanical Ventilator 70 06/30/20 15:00 20 104/64 Mechanical Ventilator 70 06/30/20 14:55 98 17 70 06/30/20 14:30 101 17 97/53 (68) 100 06/30/20 14:00 18 Mechanical Ventilator 70 06/30/20 14:00 18 94/56 Mechanical Ventilator 70 06/30/20 14:00 101 18 94/56 (69) 100 Intake and Output 06/30/20 07/01/20 19:00 07:00 Intake Total 1761.88 ml 1060 ml Output Total 1850 ml 125 ml Balance -88.12 ml 935 ml IV Total 1481.88 ml 690 ml Tube Feeding 60 ml 370 ml Other 220 ml Output Urine Total 1850 ml 125 ml Stool Total 0 ml # Voids 45 General Appearance: no acute distress HEENT: normocephalic Respiratory: chest wall non-tender Cardiovascular: normal peripheral pulses Abdomen: normal bowel sounds Laboratory Tests 06/30/20 17:09: POC Whole Blood Glucose 125H 07/01/20 04:55: White Blood Count 6.8, Red Blood Count 3.22L, Hemoglobin 9.3L, Hematocrit 30.1L, Mean Corpuscular Volume 93, Mean Corpuscular Hemoglobin 28.8, Mean Corpuscular Hemoglobin Concent 30.8L, Red Cell Distribution Width 16.6H, Platelet Count 218, Mean Platelet Volume 8.6, Neutrophils (%) (Auto) 67.2, Lymphocytes (%) (Auto) 21.1, Monocytes (%) (Auto) 5.4, Eosinophils (%) (Auto) 5.5H, Basophils (%) (Auto) 0.9, Prothrombin Time 12.0H, Prothromb Time International Ratio 1.1, Activated Partial Thromboplast Time 28, Sodium Level 140, Potassium Level 3.4L, Chloride Level 98, Carbon Dioxide Level 41*H, Anion Gap 1L, Blood Urea Nitrogen 7, Creatinine 0.4L, Estimat Glomerular Filtration Rate > 60, Glucose Level 120H, Calcium Level 9.0, Phosphorus Level 3.1, Magnesium Level 2.0, Total Bilirubin 1.5H, Direct Bilirubin 0.4H, Aspartate Amino Transf (AST/SGOT) 33, Alanine Aminotransferase (ALT/SGPT) 23, Alkaline Phosphatase 86, C-Reactive Protein, Quantitative 7.8H, Pro-B-Type Natriuretic Peptide 913H, Total Protein 6.6, Albumin 2.3L 07/01/20 05:15: POC Whole Blood Glucose 145H 07/01/20 09:55: Arterial Blood pH 7.373, Arterial Blood Partial Pressure CO2 78.9*H, Arterial Blood Partial Pressure O2 71.0L, Arterial Blood HCO3 44.9*H, Arterial Blood Oxygen Saturation 93.5L, Arterial Blood Base Excess 17.0*H, Jeremiah Test Positive Current Medications Medications (Trade) Dose Ordered Sig/Zelda Route PRN Reason Start Time Stop Time Status Last Admin Dose Admin Acetaminophen (Tylenol) 650 mg Q4H PRN NG Temp >100.5 06/29/20 10:15 07/29/20 10:14 Acetaminophen (Tylenol) 650 mg Q6H PRN NG Mild Pain (Pain Scale 1-3) 06/29/20 10:15 07/29/20 10:14 Chlorhexidine Gluconate (Inna-Hex 2%) 1 applic DAILY@2000 TOPIC 05/30/20 20:00 08/28/20 19:59 06/30/20 20:04 Dextrose (Dextrose 50%) 25 ml Q30M PRN IV Hypoglycemia 06/05/20 10:45 09/03/20 10:44 Dextrose (Dextrose 50%) 50 ml Q30M PRN IV Hypoglycemia 06/05/20 10:45 09/03/20 10:44 Dextrose/Sodium Chloride 1,000 ml @ 50 mls/hr Q20H IV 06/24/20 16:30 07/24/20 16:29 07/01/20 10:28 Docusate Sodium (Colace) 100 mg Q12HR GT 06/07/20 21:00 07/07/20 20:59 07/01/20 10:27 Enoxaparin Sodium (Lovenox) 40 mg DAILY SUBQ 05/30/20 10:00 08/28/20 09:59 07/01/20 10:28 Fentanyl Citrate 250 ml @ 1 mls/hr Q24H IV 07/01/20 09:15 07/03/20 09:14 07/01/20 09:30 Furosemide (Lasix) 40 mg DAILY IV 06/22/20 09:00 07/22/20 08:59 07/01/20 10:27 Insulin Aspart (NovoLOG) EVERY 6 HOURS SUBQ 06/07/20 00:00 09/03/20 11:59 07/01/20 05:20 Midazolam HCl 100 mg/Sodium Chloride 200 ml @ 2 mls/hr Q24H PRN IV sedation 06/29/20 15:25 07/01/20 15:24 07/01/20 05:19 Midodrine (Pro-Amatine) 10 mg Q8HR GT 06/30/20 14:00 09/12/20 13:59 07/01/20 05:19 Pantoprazole (Protonix) 40 mg Q12HR IVP 06/13/20 21:00 07/03/20 08:59 07/01/20 10:27 Polyethylene Glycol (Miralax) 17 gm BEDTIME GT 06/07/20 21:00 07/07/20 20:59 06/30/20 20:05 Vitamin D (Vitamin D) 5,000 unit DAILY GT 06/28/20 09:00 07/28/20 08:59 07/01/20 10:26 Assessment/Plan Assessment/Plan 1. COVID-19 pneumonia -Intubated 05/28/20 - We will continue broad-spectrum antibiotics. -s/p solumedrol, Rocephin -Continue PEEP 6 - Peak airway pressures high; 45 - FiO2 100% -> 90 ->80->60 ->40 ->80 ->100 ->80 -60%; -will continue OGT feeding -Continue sedation; Need to keep patient completely sedated. 2. Hyponatremia -Per primary MD 3. Elevated inflammatory markers - has high D dimer; Lovenox on hold due to hematuria 4. Decrease PEEP Continue weaning efforts May need trach Discussed with surgery Now down to 70 FiO2 ; PEEP 7 WIll request surgery for trach Long discussion with family who wish to wean her off the oxygen eventually instead of trach. Trach if "necessary" per family. Discussed with niece. She was advised regarding poor prognosis. Discussed with RN. Noted bioethics evaluation. Javier Nava MD Jul 01, 2020 13:28
--- NOTE | 2020-07-01 13:42 | NUR ---
RADIOLOGY DEPT., CHEST X-RAY DONE.-P.DYE
--- NOTE | 2020-07-01 13:45 | NUR ---
INSURANCE CLINICALS/REVIEW FAXED TO [facility] T: [phone] EXT [id number] F: [phone]
--- NOTE | 2020-07-01 14:00 | NUR ---
NURSE NOTES: Remains tolerating ventilator setting of AC 15, Tv: 600, FIo2 of 70% and peep of 7, sao2 is 97 % with Respiratory rate of 20-22. patients tube feeding is at 50ml/hr. remains sedated to rass scale of -2 with fentanyl at 300mcg/hr and versed at 10mg/hr.
--- NOTE | 2020-07-01 14:08 | Diagnostic Imaging Report ---
Indication: Dyspnea Technique: One view of the chest Comparison: 06/26/2020 Findings: Stable satisfactory tube and line positions. Bilateral infiltrates are unchanged. Impression: Unchanged, over 5 days, findings as above.
--- NOTE | 2020-07-01 15:51 | NUR ---
NURSE NOTES: order to renew versed drip obtained from Dr. Nava. she remains sedated at rass scale of -2, she also concurrently has fentanyl running at 150mcg/hr at rate of 15ml/hr.
--- NOTE | 2020-07-01 17:40 | NUR ---
NURSE NOTES: Dr. cabrera updated on patient saturations of 89-90% while on ventilator setting of AC15, TV: 600, Fio2 of 70% and peep of 5. the patient remains on tube feeding at 50ml/hr. note date set for trach procedure.
--- NOTE | 2020-07-01 18:20 | Surgery Progress Note ---
Surgery Progress Note Subjective Additional Comments Patient was tolerating ventilator weaning slowly. PEEP of 7 FiO2 100% ET tube in place currently saturating high 80s low 90s. Plan for suctioning. Imaging n oted. Objective Last 24 Hour Vital Signs Date Time Temp Pulse Resp B/P (MAP) Pulse Ox O2 Delivery O2 Flow Rate FiO2 07/01/20 16:00 21 Mechanical Ventilator 70 07/01/20 16:00 21 101/58 Mechanical Ventilator 70 07/01/20 15:48 22 Mechanical Ventilator 70 07/01/20 15:30 99 19 99/59 (72) 96 07/01/20 15:13 101 20 70 07/01/20 15:00 103 21 101/61 (74) 96 07/01/20 15:00 20 101/61 Mechanical Ventilator 70 07/01/20 15:00 20 Mechanical Ventilator 70 07/01/20 14:30 103 19 100/57 (71) 97 07/01/20 14:00 108 20 98/56 (70) 97 07/01/20 14:00 21 98/56 Mechanical Ventilator 70 07/01/20 14:00 21 Mechanical Ventilator 70 07/01/20 13:30 109 23 97/59 (72) 98 07/01/20 13:00 24 94/58 Mechanical Ventilator 70 07/01/20 13:00 24 Mechanical Ventilator 70 07/01/20 13:00 112 23 94/58 (70) 97 07/01/20 12:30 113 24 100/62 (75) 96 07/01/20 12:00 Mechanical Ventilator Mechanical Ventilator 07/01/20 12:00 70 07/01/20 12:00 22 104/59 Mechanical Ventilator 70 07/01/20 12:00 22 Mechanical Ventilator 70 07/01/20 12:00 99.9 112 23 104/59 (74) 96 07/01/20 11:30 108 22 110/62 (78) 95 07/01/20 11:00 106 23 96/56 (69) 96 07/01/20 11:00 23 96/56 Mechanical Ventilator 70 07/01/20 11:00 23 Mechanical Ventilator 70 07/01/20 10:48 105 19 70 07/01/20 10:30 107 22 102/61 (75) 97 07/01/20 10:00 23 108/63 Mechanical Ventilator 70 07/01/20 10:00 23 Mechanical Ventilator 70 07/01/20 10:00 106 22 108/63 (78) 96 07/01/20 09:30 25 91/53 Mechanical Ventilator 70 07/01/20 09:30 102 24 86/58 (67) 100 07/01/20 09:00 103 22 99/55 (70) 99 07/01/20 09:00 23 Mechanical Ventilator 70 07/01/20 08:43 105 21 70 07/01/20 08:30 109 23 112/69 (83) 89 07/01/20 08:00 70 07/01/20 08:00 22 Mechanical Ventilator 70 07/01/20 08:00 97.7 101 22 111/57 (75) 98 07/01/20 08:00 Mechanical Ventilator Mechanical Ventilator 07/01/20 08:00 99 07/01/20 07:30 103 23 110/64 (79) 98 07/01/20 07:20 104 19 70 07/01/20 07:00 22 Mechanical Ventilator 70 07/01/20 07:00 103 22 107/58 (74) 96 07/01/20 06:30 86 20 07/01/20 06:15 101 106/63 (77) 98 07/01/20 06:05 104 105/51 (69) 89 07/01/20 06:00 104 108/72 (84) 90 07/01/20 05:45 105 26 116/71 (86) 88 07/01/20 05:30 102 23 109/63 (78) 93 07/01/20 05:19 18 Mechanical Ventilator 07/01/20 05:15 110 33 118/68 (85) 84 07/01/20 05:00 100 21 119/62 (81) 95 07/01/20 04:45 96 18 117/64 (81) 100 07/01/20 04:30 101 30 117/65 (82) 86 07/01/20 04:15 96 22 98 07/01/20 04:00 97.3 95 20 106/58 (74) 100 07/01/20 04:00 Mechanical Ventilator Mechanical Ventilator 07/01/20 04:00 99 07/01/20 04:00 70 07/01/20 03:45 96 25 109/63 (78) 98 07/01/20 03:30 92 18 110/67 (81) 97 07/01/20 03:15 93 21 105/63 (77) 100 07/01/20 03:00 101 30 114/69 (84) 87 07/01/20 02:45 96 21 104/60 (75) 100 07/01/20 02:30 96 22 107/58 (74) 97 07/01/20 02:00 99 23 111/57 (75) 97 07/01/20 01:45 98 19 110/66 (81) 91 07/01/20 01:30 98 22 106/58 (74) 97 07/01/20 01:15 96 22 109/59 (76) 94 07/01/20 01:00 95 22 108/57 (74) 97 07/01/20 00:45 93 22 101/60 (74) 100 07/01/20 00:43 94 23 70 07/01/20 00:30 97.1 89 23 108/64 (79) 95 07/01/20 00:15 91 19 103/59 (74) 100 07/01/20 00:00 70 07/01/20 00:00 99 07/01/20 00:00 91 20 102/62 (75) 100 06/30/20 23:45 89 18 107/62 (77) 98 06/30/20 23:30 90 19 109/59 (76) 98 06/30/20 23:15 92 20 105/58 (74) 100 06/30/20 23:00 87 17 105/61 (76) 100 06/30/20 22:45 91 21 97/65 (76) 100 06/30/20 22:30 93 20 103/64 (77) 100 06/30/20 22:15 94 21 102/63 (76) 99 06/30/20 22:00 92 19 109/57 (74) 100 06/30/20 21:45 97 22 119/68 (85) 88 06/30/20 21:30 96 24 112/63 (79) 97 06/30/20 21:00 95 22 117/69 (85) 92 06/30/20 20:15 91 19 95/57 (70) 100 06/30/20 20:00 99 06/30/20 20:00 Mechanical Ventilator Mechanical Ventilator 06/30/20 20:00 70 06/30/20 20:00 97.0 91 14 100/54 (69) 100 06/30/20 19:45 93 19 102/56 (71) 100 06/30/20 19:30 92 18 70 06/30/20 19:30 92 16 105/49 (67) 100 06/30/20 19:15 92 19 99/60 (73) 98 06/30/20 19:00 92 15 102/63 (76) 99 06/30/20 19:00 15 Mechanical Ventilator 70 06/30/20 19:00 15 102/63 Mechanical Ventilator 70 06/30/20 18:30 93 18 96/62 (73) 97 I&O Intake and Output 06/30/20 07/01/20 19:00 07:00 Intake Total 1761.88 ml 1080 ml Output Total 1850 ml 125 ml Balance -88.12 ml 955 ml IV Total 1481.88 ml 710 ml Tube Feeding 60 ml 370 ml Other 220 ml Output Urine Total 1850 ml 125 ml Stool Total 0 ml # Voids 45 Dressing: saturated Cardiovascular: RSR Respiratory: decreased breath sounds Abdomen: soft, non-tender, present bowel sounds, non-distended Extremities: no tenderness, no cyanosis Laboratory Tests Test 07/01/20 04:55 07/01/20 05:15 07/01/20 09:55 White Blood Count 6.8 K/UL (4.8-10.8) Red Blood Count 3.22 M/UL (4.20-5.40) L Hemoglobin 9.3 G/DL (12.0-16.0) L Hematocrit 30.1 % (37.0-47.0) L Mean Corpuscular Volume 93 FL (80-99) Mean Corpuscular Hemoglobin 28.8 PG (27.0-31.0) Mean Corpuscular Hemoglobin Concent 30.8 G/DL (32.0-36.0) L Red Cell Distribution Width 16.6 % (11.6-14.8) H Platelet Count 218 K/UL (150-450) Mean Platelet Volume 8.6 FL (6.5-10.1) Neutrophils (%) (Auto) 67.2 % (45.0-75.0) Lymphocytes (%) (Auto) 21.1 % (20.0-45.0) Monocytes (%) (Auto) 5.4 % (1.0-10.0) Eosinophils (%) (Auto) 5.5 % (0.0-3.0) H Basophils (%) (Auto) 0.9 % (0.0-2.0) Prothrombin Time 12.0 SEC (9.30-11.50) H Prothromb Time International Ratio 1.1 (0.9-1.1) Activated Partial Thromboplast Time 28 SEC (23-33) Sodium Level 140 MMOL/L (136-145) Potassium Level 3.4 MMOL/L (3.5-5.1) L Chloride Level 98 MMOL/L (98-107) Carbon Dioxide Level 41 MMOL/L (21-32) *H Anion Gap 1 mmol/L (5-15) L Blood Urea Nitrogen 7 mg/dL (7-18) Creatinine 0.4 MG/DL (0.55-1.30) L Estimat Glomerular Filtration Rate > 60 mL/min (>60) Glucose Level 120 MG/DL (74-106) H Calcium Level 9.0 MG/DL (8.5-10.1) Phosphorus Level 3.1 MG/DL (2.5-4.9) Magnesium Level 2.0 MG/DL (1.8-2.4) Total Bilirubin 1.5 MG/DL (0.2-1.0) H Direct Bilirubin 0.4 MG/DL (0.0-0.3) H Aspartate Amino Transf (AST/SGOT) 33 U/L (15-37) Alanine Aminotransferase (ALT/SGPT) 23 U/L (12-78) Alkaline Phosphatase 86 U/L (46-116) C-Reactive Protein, Quantitative 7.8 mg/dL (0.00-0.90) H Pro-B-Type Natriuretic Peptide 913 pg/mL (0-125) H Total Protein 6.6 G/DL (6.4-8.2) Albumin 2.3 G/DL (3.4-5.0) L POC Whole Blood Glucose 145 MG/DL (74-106) H Arterial Blood pH 7.373 (7.350-7.450) Arterial Blood Partial Pressure CO2 78.9 mmHg (35.0-45.0) *H Arterial Blood Partial Pressure O2 71.0 mmHg (75.0-100.0) L Arterial Blood HCO3 44.9 mmol/L (22.0-26.0) *H Arterial Blood Oxygen Saturation 93.5 % (95-100) L Arterial Blood Base Excess 17.0 (-2-2) *H Jeremiah Test Positive Plan Problems: (1) Respiratory distress (2) Respiratory failure Assessment & Plan: 50-year-old female Covid positive respiratory insufficiency intubated on ventilatory support declining. Leukocytosis increase oxygen requ irement. Vent settings per pulmonology reviewed identified and agree. Unfortunately further surgical invention at this time is not appropriate as patient is not a candidate and her current condition. Prognosis overall guarded. Tracheostomy can be considered in the future if recovering or shows improvement and requires unable to be weaned from ventilator support. Currently okay for nutritional optimization with NG tube. Will need significant monitoring for decubitus formation given patient's size and condition. Okay for air mattress tolerated. Turn every 2 hours as tolerated. Patient is otherwise critically ill and blood pressure labile. Will need to monitor closely.Bilateral infiltrates are again demonstrated. Stable tube and line positions. will need trach will need to wean vent first (3) Hypoxia (4) Pneumonia due to COVID-19 virus Assessment & Plan: ++ as per pulm and ID (5) Diabetes mellitus out of control Assessment & Plan: DAILY ESTIMATED NEEDS: Needs based on Critical care, obesity 11-14kcal/kg actual body wt (140kg) kcals/kg 6064-1790 total kcals 1.5-2.0g prot/kg IBW (64.5kg) g protein/kg 96-129 g total protein 25-30ml/kg abw (83kg) mL/kg 7299-1490 total fluid mLs NUTRITION DIAGNOSIS: Swallowing difficulty R/T respiratory failure as evidenced by pt orally intubated and sedated, on OGT feeds. CURRENT TF: Vital 1.2 goal of 60ml/hr ENTERAL NUTRITION RECOMMENDATIONS: Vital AF 1.2 @ 60ml/hr x 24 hrs to provide 1440ml, 1728kcal, 108g prot, 1168ml free water * Maintain current critical care and carb controlled TF formula of Vital AF * TF @ goal meeds 100% est kcal/prot needs * HOB over 30 degrees/ water flush per MD TF may be lowered to 55ml/hr for improved BG control while maintaining Kcal and pro needs. ADDITIONAL RECOMMENDATIONS: * Calibrated bedscale wt * Monitor Propofol rate, need for TF adjustment-> now off * Monitor BGs closely : now improved, on novolog q 6rs + NISS * Monitor lytes- K elevated, monitor need for TF change * Rec bowel regimen- now w/ rectal tube . Az Devine Jul 01, 2020 18:20
--- NOTE | 2020-07-01 19:48 | NUR ---
NURSE HAND-OFF REPORT: Latest Vital Signs: Temperature 98.6 , Pulse 107 , B/P 100 /60 , Respiratory Rate 26 , O2 SAT 89 , Mechanical Ventilator, O2 Flow Rate . Vital Sign Comment: EKG Rhythm: Sinus Tachycardia Rhythm change?: Jesus TOLLIVER Notified?: Babs EDWARDS MD Response: Latest Meyers Fall Score: 70 Fall Risk: High Risk Safety Measures: Call light Within Reach, Bed Alarm Zone 1, Side Rails Side Rails x2, Bed position Low and Locked. Fall Precautions: Yellow Socks Report given to RAKEL Arriaza.
--- NOTE | 2020-07-01 19:49 | NUR ---
NURSE NOTES: received pt from Alfonzo ELLINGTON., pt is sedated at this time, RASS -2. 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 ETT 7.0 lip line 23cm vent setting AC 15 TV 600 FIO2 70% Peep 7. left NGT vital AF 50ml/hr is running at this time, residual noted 40ml. rectal tube noted, draining well with gravity. Lennon cath noted, draining well with gravity, no active bleeding noted at this time. right upper arm PICC line noted dressing site intact, clean, and patent. fentanyl is running at 150mcg/hr and versed is running at 10mg/hr, and D5 1/2 NS @ 50ml/hr. pt ABD is large, round, and active. call light within reach. will continue to monitor pt with plan of care. bed at the lowest position, alarmed, and locked.
[2020-07-01] MEDS: Miralax 17gm pkt GT SCH (20:30)
[2020-07-01] MEDS: Dyna-Hex 2% Top Sol 2oz TOPIC SCH (20:33)
--- NOTE | 2020-07-01 21:49 | NUR ---
NURSE NOTES: oral suctioned, RT at the bedside. oral care given. no active bleeding noted at this time. will continue to monitor pt.
--- NOTE | 2020-07-01 23:09 | NUR ---
NURSE NOTES: oral suctioned and noticed pt has a lot of oral secretion (white and thick). no fever noted at this time. tube feeding changed.
[2020-07-02] VITALS (41 sets, daily range): BP systolic 81–128; BP diastolic 44–86
--- NOTE | 2020-07-02 00:03 | NUR ---
NURSE NOTES: repositioned pt, oral care given, oral suctioned. call light within reach. rectal tube in place draining well.
[2020-07-02] MEDS: NovoLOG Insulin Flexpen SUBQ SCH ×5 (00:51→23:33)
[2020-07-02] MEDS: Acetaminophen 650mg/20.3ml NG PRN (00:53)
[2020-07-02] MEDS: Midazolam HCl 50mg/10ml vial 100 MG in NS 180 ML IV PRN ×2 (01:52→13:52)
--- NOTE | 2020-07-02 02:00 | NUR ---
NURSE NOTES: cleaned pt, provided new gown and new chucks. repositioned pt. no skin alternation noted, skin intact, applied optifoam for protection. no active bleeding noted at this time. call light within reach.
[2020-07-02] MEDS: fentaNYL 2500mcg/NS 250ml 250 ML IV SCH ×2 (02:19→18:59)
--- NOTE | 2020-07-02 04:00 | NUR ---
NURSE NOTES: repositioned pt, antionette is draining well with gravity. no active bleeding noted at this time. call light within reach. will continue to monitor pt.
[2020-07-02] MEDS: D5 1/2NS 1,000 ML IV SCH (04:06)
[2020-07-02] MEDS: Midodrine 10mg tab GT SCH ×3 (05:05→21:46)
[2020-07-02 05:37] LABS: BASOPHILS % (AUTO) 1.1 % (0.0-2.0); EOSINOPHILS % (AUTO) 3.6 % (0.0-3.0); HEMATOCRIT 25.3 % (37.0-47.0); HEMOGLOBIN 8.1 G/DL (12.0-16.0); LYMPHOCYTES % (AUTO) 20.9 % (20.0-45.0); MEAN CORPUSCULAR VOLUME 93 FL (80-99); NEUTROPHILS % (AUTO) 68.4 % (45.0-75.0); PLATELET COUNT 214 K/UL (150-450); RED BLOOD COUNT 2.72 M/UL (4.20-5.40); RED CELL DISTRIBUTION WIDTH 18.5 % (11.6-14.8); WHITE BLOOD COUNT 7.4 K/UL (4.8-10.8)
[2020-07-02 05:46] LABS: ANION GAP 0 mmol/L (5-15); BLOOD UREA NITROGEN 8 mg/dL (7-18); CHLORIDE 98 MMOL/L (98-107); CREATININE 0.5 MG/DL (0.55-1.30); POTASSIUM 3.4 MMOL/L (3.5-5.1); SODIUM 140 MMOL/L (136-145)
[2020-07-02 05:51] LABS: CARBON DIOXIDE 42 MMOL/L (21-32)
[2020-07-02 05:52] LABS: INR 1.1 (0.9-1.1)
[2020-07-02 05:53] LABS: ALANINE AMINOTRANSFERASE 23 U/L (12-78); ALBUMIN 2.4 G/DL (3.4-5.0); ALKALINE PHOSPHATASE 82 U/L (46-116); ASPARTATE AMINO TRANSFERASE 37 U/L (15-37); BILIRUBIN,TOTAL 1.4 MG/DL (0.2-1.0); PHOSPHORUS 3.2 MG/DL (2.5-4.9)
[2020-07-02 06:16] LABS: BILIRUBIN,DIRECT 0.3 MG/DL (0.0-0.3)
--- NOTE | 2020-07-02 06:20 | NUR ---
NURSE NOTES: Dr. Christina made aware hgb dropped from 9.3 to 8.1 today. occult stool order received, will carry on.
--- NOTE | 2020-07-02 06:29 | Hematology/Onc Progress Note ---
Assessment/Plan Assessment/Plan # Thrombocytopenia is due to infection/underlying covid19+++ --> ABX ceftriaxone -->zosyn-->off --> on steriods likely cause of initial wbc --> per pulm --> plt 107->156-->192-->205 --> smear reviewed # Anemia due to chronic disease --> hgb goal is >7 --> transfuse prn --> ferritin is >1000 --> hold off on iron --> 10-->9.8->9-->8-->8.2-->9.4-->8.1-->9.9-->8.7-->9.7-->9.5-->8.1 # Elevated ddimer due to covid19++ --> duplex legs is negative --> underlying covid rx # Hypoxia -> due to covid19 # Hypoxemia --> rx same as above # Respiratory failure --> on vent --> per pulm # Pneumonia due to COVID-19 virus --> per pulm rx -> sp remdesivir # Diabetes mellitus out of control --> hgb a1c goal <7 # Poor prognosis # Dvt ppx lovenox sq Appreciate consultation and bowen RN Subjective Allergies: Coded Allergies: No Known Allergies (Unverified , 05/28/20) All Systems: reviewed and negative except above Subjective 06/10 nv, on vent, with ogt, on fentanyl and versed, plt stable 06/11 nv, vent adjusted is on ogt, meds reviewed 06/12 nv, vent, meds noted, labs noted, no bleeding, hgb 10.4 06/13 nv, is on vent, meds reviewed, no bleeding, cbc reviewed 06/14 nv, on vent, tachy, labs reviewed, gross hematuria, febrile overnight, abx 06/17 nv, on vent, labs noted, no major changes, feeling better overnight 06/18 nv, meds reviewed, labs noted, no major events, hgb 8.6 06/19 nv, remains intubated, with fluids, labs reviewed, meds noted 06/20 nv, intubated remains on restraints, meds noted as well, as labs 06/21 nv, remains on vent, on restraints, meds reviewed, labs noted 06/22: covering Dr. Del Cid no acute events 06/23 sedated, on vent, nv, intubated, meds reviewed, versed 06/24 nv, on vent, no night sweats, no bleeding, remains in icu 06/25 nv, on vent, icu, meds noted, no bleeding, comfortable 06/26 nv, on versed, icu, weaning parameters, labs noted 06/27 nv, overnight fighting vent, as per pulm fentanyl on board 06/28 nv, on vent, labs reviewed, as per pulm, meds noted 06/30 nv, icu, labs pending, is on fentanyl, versed, no new changes 07/01 nv, icu, is on vent, labs pending, no new changes per rn 07/02 nv, icu is on vent, labs noted, hgb is stable Objective Objective Current Medications Medications (Trade) Dose Ordered Sig/Zelda Route PRN Reason Start Time Stop Time Status Last Admin Dose Admin Acetaminophen (Tylenol) 650 mg Q4H PRN NG Temp >100.5 06/29/20 10:15 07/29/20 10:14 07/02/20 00:53 Acetaminophen (Tylenol) 650 mg Q6H PRN NG Mild Pain (Pain Scale 1-3) 06/29/20 10:15 07/29/20 10:14 Chlorhexidine Gluconate (Inna-Hex 2%) 1 applic DAILY@2000 TOPIC 05/30/20 20:00 08/28/20 19:59 07/01/20 20:33 Dextrose (Dextrose 50%) 25 ml Q30M PRN IV Hypoglycemia 06/05/20 10:45 09/03/20 10:44 Dextrose (Dextrose 50%) 50 ml Q30M PRN IV Hypoglycemia 06/05/20 10:45 09/03/20 10:44 Dextrose/Sodium Chloride 1,000 ml @ 50 mls/hr Q20H IV 06/24/20 16:30 07/24/20 16:29 07/02/20 04:06 Docusate Sodium (Colace) 100 mg Q12HR GT 06/07/20 21:00 07/07/20 20:59 07/01/20 10:27 Enoxaparin Sodium (Lovenox) 40 mg DAILY SUBQ 05/30/20 10:00 08/28/20 09:59 07/01/20 10:28 Fentanyl Citrate 250 ml @ 1 mls/hr Q24H IV 07/01/20 09:15 07/03/20 09:14 07/02/20 02:19 Furosemide (Lasix) 40 mg DAILY IV 06/22/20 09:00 07/22/20 08:59 07/01/20 10:27 Insulin Aspart (NovoLOG) EVERY 6 HOURS SUBQ 06/07/20 00:00 09/03/20 11:59 07/02/20 00:51 Midazolam HCl 100 mg/Sodium Chloride 200 ml @ 0 mls/hr Q24H PRN IV sedation 07/01/20 15:45 07/03/20 15:37 07/02/20 01:52 Midodrine (Pro-Amatine) 10 mg Q8HR GT 06/30/20 14:00 09/12/20 13:59 07/02/20 05:05 Pantoprazole (Protonix) 40 mg Q12HR IVP 06/13/20 21:00 07/03/20 08:59 07/01/20 20:33 Polyethylene Glycol (Miralax) 17 gm BEDTIME GT 06/07/20 21:00 07/07/20 20:59 06/30/20 20:05 Vitamin D (Vitamin D) 5,000 unit DAILY GT 06/28/20 09:00 07/28/20 08:59 07/01/20 10:26 Last 24 Hour Vital Signs Date Time Temp Pulse Resp B/P (MAP) Pulse Ox O2 Delivery O2 Flow Rate FiO2 07/02/20 04:00 70 07/02/20 04:00 Mechanical Ventilator Mechanical Ventilator 07/02/20 04:00 26 Mechanical Ventilator 70 07/02/20 04:00 26 96/59 Mechanical Ventilator 70 07/02/20 04:00 98.8 101 24 100/57 (71) 92 07/02/20 03:30 104 27 106/63 (77) 90 07/02/20 03:28 99 20 70 07/02/20 03:08 100 07/02/20 03:00 104 28 115/69 (84) 91 07/02/20 03:00 25 Mechanical Ventilator 70 07/02/20 03:00 25 108/60 Mechanical Ventilator 70 07/02/20 02:19 20 100/58 Mechanical Ventilator 70 07/02/20 02:00 103 21 98/62 (74) 93 07/02/20 02:00 22 Mechanical Ventilator 70 07/02/20 02:00 22 100/58 Mechanical Ventilator 70 07/02/20 01:52 24 Mechanical Ventilator 70 07/02/20 01:48 23 Mechanical Ventilator 70 07/02/20 01:30 100.5 102 23 90/65 (73) 90 07/02/20 01:23 99.9 07/02/20 01:00 105 22 94/60 (71) 100 07/02/20 01:00 21 Mechanical Ventilator 70 07/02/20 01:00 21 95/76 Mechanical Ventilator 70 07/02/20 00:00 Mechanical Ventilator Mechanical Ventilator 07/02/20 00:00 98.7 109 24 102/59 (73) 98 07/02/20 00:00 17 Mechanical Ventilator 70 07/02/20 00:00 17 102/59 Mechanical Ventilator 70 07/01/20 23:30 114 22 95/59 (71) 100 07/01/20 23:29 111 25 70 07/01/20 23:03 118 07/01/20 23:00 118 23 107/64 (78) 100 07/01/20 23:00 26 Mechanical Ventilator 70 07/01/20 23:00 26 109/69 Mechanical Ventilator 70 07/01/20 22:30 120 25 97/61 (73) 100 07/01/20 22:00 120 23 110/62 (78) 100 07/01/20 22:00 26 Mechanical Ventilator 70 07/01/20 22:00 26 100/63 Mechanical Ventilator 70 07/01/20 21:00 121 28 114/63 (80) 82 07/01/20 21:00 26 Mechanical Ventilator 70 07/01/20 21:00 26 98/63 Mechanical Ventilator 70 07/01/20 20:30 109 23 94/52 (66) 99 07/01/20 20:00 Mechanical Ventilator Mechanical Ventilator 07/01/20 20:00 70 07/01/20 20:00 26 Mechanical Ventilator 70 07/01/20 20:00 26 97/62 Mechanical Ventilator 70 07/01/20 20:00 98.4 108 16 100/64 (76) 100 07/01/20 19:34 107 07/01/20 19:23 108 20 70 07/01/20 19:00 26 Mechanical Ventilator 70 07/01/20 19:00 26 100/60 Mechanical Ventilator 70 07/01/20 19:00 107 26 100/60 (73) 89 07/01/20 18:30 103 24 110/69 (83) 95 07/01/20 18:00 106 26 120/72 (88) 87 07/01/20 18:00 26 Mechanical Ventilator 70 07/01/20 18:00 26 120/72 Mechanical Ventilator 70 07/01/20 17:30 105 24 105/51 (69) 85 07/01/20 17:00 23 Mechanical Ventilator 70 07/01/20 17:00 23 98/59 Mechanical Ventilator 70 07/01/20 17:00 101 23 98/59 (72) 88 07/01/20 16:30 97 22 92/54 (67) 92 07/01/20 16:00 101 07/01/20 16:00 98.6 100 24 101/58 (72) 94 07/01/20 16:00 Mechanical Ventilator Mechanical Ventilator 07/01/20 16:00 70 07/01/20 16:00 21 Mechanical Ventilator 70 07/01/20 16:00 21 101/58 Mechanical Ventilator 70 07/01/20 15:48 22 Mechanical Ventilator 70 07/01/20 15:30 99 19 99/59 (72) 96 07/01/20 15:13 101 20 70 07/01/20 15:00 103 21 101/61 (74) 96 07/01/20 15:00 20 101/61 Mechanical Ventilator 70 07/01/20 15:00 20 Mechanical Ventilator 70 07/01/20 14:30 103 19 100/57 (71) 97 07/01/20 14:00 108 20 98/56 (70) 97 07/01/20 14:00 21 98/56 Mechanical Ventilator 70 07/01/20 14:00 21 Mechanical Ventilator 70 07/01/20 13:30 109 23 97/59 (72) 98 07/01/20 13:00 24 94/58 Mechanical Ventilator 70 07/01/20 13:00 24 Mechanical Ventilator 70 07/01/20 13:00 112 23 94/58 (70) 97 07/01/20 12:30 113 24 100/62 (75) 96 07/01/20 12:00 111 07/01/20 12:00 Mechanical Ventilator Mechanical Ventilator 07/01/20 12:00 70 07/01/20 12:00 22 104/59 Mechanical Ventilator 70 07/01/20 12:00 22 Mechanical Ventilator 70 07/01/20 12:00 99.9 112 23 104/59 (74) 96 07/01/20 11:30 108 22 110/62 (78) 95 07/01/20 11:00 106 23 96/56 (69) 96 07/01/20 11:00 23 96/56 Mechanical Ventilator 70 07/01/20 11:00 23 Mechanical Ventilator 70 07/01/20 10:48 105 19 70 07/01/20 10:30 107 22 102/61 (75) 97 07/01/20 10:00 23 108/63 Mechanical Ventilator 70 07/01/20 10:00 23 Mechanical Ventilator 70 07/01/20 10:00 106 22 108/63 (78) 96 07/01/20 09:30 25 91/53 Mechanical Ventilator 70 07/01/20 09:30 102 24 86/58 (67) 100 07/01/20 09:00 103 22 99/55 (70) 99 07/01/20 09:00 23 Mechanical Ventilator 70 07/01/20 08:43 105 21 70 07/01/20 08:30 109 23 112/69 (83) 89 07/01/20 08:00 70 07/01/20 08:00 22 Mechanical Ventilator 70 07/01/20 08:00 97.7 101 22 111/57 (75) 98 07/01/20 08:00 Mechanical Ventilator Mechanical Ventilator 07/01/20 08:00 99 07/01/20 07:30 103 23 110/64 (79) 98 07/01/20 07:20 104 19 70 07/01/20 07:00 22 Mechanical Ventilator 70 07/01/20 07:00 103 22 107/58 (74) 96 07/01/20 06:30 86 20 07/01/20 06:15 101 106/63 (77) 98 07/01/20 06:05 104 105/51 (69) 89 07/01/20 06:00 104 108/72 (84) 90 07/01/20 05:45 105 26 116/71 (86) 88 07/01/20 05:30 102 23 109/63 (78) 93 07/01/20 05:19 18 Mechanical Ventilator 07/01/20 05:15 110 33 118/68 (85) 84 07/01/20 05:00 100 21 119/62 (81) 95 07/01/20 04:45 96 18 117/64 (81) 100 07/01/20 04:30 101 30 117/65 (82) 86 07/01/20 04:15 96 22 98 07/01/20 04:00 97.3 95 20 106/58 (74) 100 07/01/20 04:00 Mechanical Ventilator Mechanical Ventilator 07/01/20 04:00 99 07/01/20 04:00 70 07/01/20 03:45 96 25 109/63 (78) 98 07/01/20 03:30 92 18 110/67 (81) 97 07/01/20 03:15 93 21 105/63 (77) 100 07/01/20 03:00 101 30 114/69 (84) 87 07/01/20 02:45 96 21 104/60 (75) 100 07/01/20 02:30 96 22 107/58 (74) 97 07/01/20 02:00 99 23 111/57 (75) 97 07/01/20 01:45 98 19 110/66 (81) 91 07/01/20 01:30 98 22 106/58 (74) 97 07/01/20 01:15 96 22 109/59 (76) 94 07/01/20 01:00 95 22 108/57 (74) 97 07/01/20 00:45 93 22 101/60 (74) 100 07/01/20 00:43 94 23 70 07/01/20 00:30 97.1 89 23 108/64 (79) 95 07/01/20 00:15 91 19 103/59 (74) 100 07/01/20 00:00 70 07/01/20 00:00 99 07/01/20 00:00 91 20 102/62 (75) 100 06/30/20 23:45 89 18 107/62 (77) 98 06/30/20 23:30 90 19 109/59 (76) 98 06/30/20 23:15 92 20 105/58 (74) 100 06/30/20 23:00 87 17 105/61 (76) 100 06/30/20 22:45 91 21 97/65 (76) 100 06/30/20 22:30 93 20 103/64 (77) 100 06/30/20 22:15 94 21 102/63 (76) 99 06/30/20 22:00 92 19 109/57 (74) 100 06/30/20 21:45 97 22 119/68 (85) 88 06/30/20 21:30 96 24 112/63 (79) 97 06/30/20 21:00 95 22 117/69 (85) 92 06/30/20 20:15 91 19 95/57 (70) 100 06/30/20 20:00 99 06/30/20 20:00 Mechanical Ventilator Mechanical Ventilator 06/30/20 20:00 70 06/30/20 20:00 97.0 91 14 100/54 (69) 100 06/30/20 19:45 93 19 102/56 (71) 100 06/30/20 19:30 92 18 70 06/30/20 19:30 92 16 105/49 (67) 100 06/30/20 19:15 92 19 99/60 (73) 98 06/30/20 19:00 92 15 102/63 (76) 99 06/30/20 19:00 15 Mechanical Ventilator 70 06/30/20 19:00 15 102/63 Mechanical Ventilator 70 06/30/20 18:30 93 18 96/62 (73) 97 06/30/20 18:00 20 Mechanical Ventilator 70 06/30/20 18:00 20 100/64 Mechanical Ventilator 70 06/30/20 18:00 95 18 100/63 (75) 99 06/30/20 17:50 18 Mechanical Ventilator 70 06/30/20 17:00 18 Mechanical Ventilator 70 06/30/20 17:00 18 111/62 Mechanical Ventilator 70 06/30/20 17:00 97 25 106/63 (77) 96 06/30/20 16:30 96 24 107/62 (77) 95 06/30/20 16:00 97.4 100 20 114/64 (81) 95 06/30/20 16:00 20 Mechanical Ventilator 70 06/30/20 16:00 20 114/64 Mechanical Ventilator 70 06/30/20 16:00 70 06/30/20 16:00 99 06/30/20 16:00 Mechanical Ventilator Mechanical Ventilator 06/30/20 15:31 20 105/58 Mechanical Ventilator 70 06/30/20 15:00 100 20 104/64 (77) 96 06/30/20 15:00 20 Mechanical Ventilator 70 06/30/20 15:00 20 104/64 Mechanical Ventilator 70 06/30/20 14:55 98 17 70 06/30/20 14:30 101 17 97/53 (68) 100 06/30/20 14:00 18 Mechanical Ventilator 70 06/30/20 14:00 18 94/56 Mechanical Ventilator 70 06/30/20 14:00 101 18 94/56 (69) 100 06/30/20 13:00 20 Mechanical Ventilator 70 06/30/20 13:00 20 111/53 Mechanical Ventilator 70 06/30/20 13:00 100 18 111/53 (72) 100 06/30/20 12:00 Mechanical Ventilator Mechanical Ventilator 06/30/20 12:00 100 06/30/20 12:00 20 Mechanical Ventilator 70 06/30/20 12:00 20 110/58 Mechanical Ventilator 70 06/30/20 12:00 97.5 102 18 110/58 (75) 100 06/30/20 12:00 70 06/30/20 11:47 103 22 70 06/30/20 11:05 106 27 70 06/30/20 11:00 18 Mechanical Ventilator 70 06/30/20 11:00 18 120/73 Mechanical Ventilator 70 06/30/20 11:00 104 21 120/73 (89) 98 06/30/20 10:00 107 20 123/80 (94) 99 06/30/20 10:00 18 Mechanical Ventilator 70 06/30/20 10:00 18 127/81 Mechanical Ventilator 70 06/30/20 09:30 107 26 125/66 (85) 97 06/30/20 09:00 107 20 112/62 (79) 99 06/30/20 09:00 18 Mechanical Ventilator 70 06/30/20 09:00 18 114/68 Mechanical Ventilator 70 06/30/20 08:30 107 21 120/64 (82) 95 06/30/20 08:24 16 Mechanical Ventilator 70 06/30/20 08:00 98.6 107 27 109/54 (72) 96 06/30/20 08:00 Mechanical Ventilator Mechanical Ventilator 06/30/20 08:00 70 06/30/20 08:00 107 06/30/20 08:00 22 130/59 Mechanical Ventilator 70 06/30/20 07:25 104 20 70 06/30/20 07:00 22 Mechanical Ventilator 70 06/30/20 07:00 22 94/59 Mechanical Ventilator 70 06/30/20 07:00 101 25 97/60 (72) 99 06/30/20 06:45 101 24 98/56 (70) 100 06/30/20 06:30 86 20 06/30/20 06:30 102 21 98/58 (71) 100 Intake and Output 07/01/20 07/02/20 19:00 07:00 Intake Total 1734.5 ml 1272.64285 ml Output Total 1085 ml 480 ml Balance 649.5 ml 792.23007 ml Free Water 150 ml 60 ml IV Total 994.5 ml 762.99255 ml Tube Feeding 560 ml 450 ml Other 30 ml Output Urine Total 1075 ml 470 ml Stool Total 10 ml 10 ml # Voids 225 Labs Test 06/29/20 12:32 06/30/20 04:45 06/30/20 05:30 06/30/20 08:09 POC Whole Blood Glucose 118 MG/DL (74-106) 132 MG/DL (74-106) White Blood Count 9.2 K/UL (4.8-10.8) Red Blood Count 3.43 M/UL (4.20-5.40) Hemoglobin 9.9 G/DL (12.0-16.0) Hematocrit 31.7 % (37.0-47.0) Mean Corpuscular Volume 92 FL (80-99) Mean Corpuscular Hemoglobin 28.7 PG (27.0-31.0) Mean Corpuscular Hemoglobin Concent 31.1 G/DL (32.0-36.0) Red Cell Distribution Width 17.1 % (11.6-14.8) Platelet Count 242 K/UL (150-450) Mean Platelet Volume 8.5 FL (6.5-10.1) Neutrophils (%) (Auto) 65.8 % (45.0-75.0) Lymphocytes (%) (Auto) 23.2 % (20.0-45.0) Monocytes (%) (Auto) 4.6 % (1.0-10.0) Eosinophils (%) (Auto) 5.9 % (0.0-3.0) Basophils (%) (Auto) 0.5 % (0.0-2.0) Sodium Level 138 MMOL/L (136-145) Potassium Level 3.9 MMOL/L (3.5-5.1) Chloride Level 96 MMOL/L (98-107) Carbon Dioxide Level 39 MMOL/L (21-32) Anion Gap 3 mmol/L (5-15) Blood Urea Nitrogen 8 mg/dL (7-18) Creatinine 0.4 MG/DL (0.55-1.30) Estimat Glomerular Filtration Rate > 60 mL/min (>60) Glucose Level 114 MG/DL (74-106) Calcium Level 9.2 MG/DL (8.5-10.1) Phosphorus Level 2.9 MG/DL (2.5-4.9) Magnesium Level 1.4 MG/DL (1.8-2.4) Total Bilirubin 1.7 MG/DL (0.2-1.0) Direct Bilirubin 0.4 MG/DL (0.0-0.3) Aspartate Amino Transf (AST/SGOT) 34 U/L (15-37) Alanine Aminotransferase (ALT/SGPT) 23 U/L (12-78) Alkaline Phosphatase 84 U/L (46-116) C-Reactive Protein, Quantitative 7.6 mg/dL (0.00-0.90) Pro-B-Type Natriuretic Peptide 1365 pg/mL (0-125) Total Protein 7.5 G/DL (6.4-8.2) Albumin 2.3 G/DL (3.4-5.0) Globulin 5.2 g/dL Albumin/Globulin Ratio 0.4 (1.0-2.7) Arterial Blood pH 7.320 (7.350-7.450) Arterial Blood Partial Pressure CO2 80.7 mmHg (35.0-45.0) Arterial Blood Partial Pressure O2 54.4 mmHg (75.0-100.0) Arterial Blood HCO3 40.6 mmol/L (22.0-26.0) Arterial Blood Oxygen Saturation 84.8 % (95-100) Arterial Blood Base Excess 12.2 (-2-2) Jeremiah Test Positive Test 06/30/20 17:09 07/01/20 04:55 07/01/20 05:15 07/01/20 09:55 POC Whole Blood Glucose 125 MG/DL (74-106) 145 MG/DL (74-106) White Blood Count 6.8 K/UL (4.8-10.8) Red Blood Count 3.22 M/UL (4.20-5.40) Hemoglobin 9.3 G/DL (12.0-16.0) Hematocrit 30.1 % (37.0-47.0) Mean Corpuscular Volume 93 FL (80-99) Mean Corpuscular Hemoglobin 28.8 PG (27.0-31.0) Mean Corpuscular Hemoglobin Concent 30.8 G/DL (32.0-36.0) Red Cell Distribution Width 16.6 % (11.6-14.8) Platelet Count 218 K/UL (150-450) Mean Platelet Volume 8.6 FL (6.5-10.1) Neutrophils (%) (Auto) 67.2 % (45.0-75.0) Lymphocytes (%) (Auto) 21.1 % (20.0-45.0) Monocytes (%) (Auto) 5.4 % (1.0-10.0) Eosinophils (%) (Auto) 5.5 % (0.0-3.0) Basophils (%) (Auto) 0.9 % (0.0-2.0) Prothrombin Time 12.0 SEC (9.30-11.50) Prothromb Time International Ratio 1.1 (0.9-1.1) Activated Partial Thromboplast Time 28 SEC (23-33) Sodium Level 140 MMOL/L (136-145) Potassium Level 3.4 MMOL/L (3.5-5.1) Chloride Level 98 MMOL/L (98-107) Carbon Dioxide Level 41 MMOL/L (21-32) Anion Gap 1 mmol/L (5-15) Blood Urea Nitrogen 7 mg/dL (7-18) Creatinine 0.4 MG/DL (0.55-1.30) Estimat Glomerular Filtration Rate > 60 mL/min (>60) Glucose Level 120 MG/DL (74-106) Calcium Level 9.0 MG/DL (8.5-10.1) Phosphorus Level 3.1 MG/DL (2.5-4.9) Magnesium Level 2.0 MG/DL (1.8-2.4) Total Bilirubin 1.5 MG/DL (0.2-1.0) Direct Bilirubin 0.4 MG/DL (0.0-0.3) Aspartate Amino Transf (AST/SGOT) 33 U/L (15-37) Alanine Aminotransferase (ALT/SGPT) 23 U/L (12-78) Alkaline Phosphatase 86 U/L (46-116) C-Reactive Protein, Quantitative 7.8 mg/dL (0.00-0.90) Pro-B-Type Natriuretic Peptide 913 pg/mL (0-125) Total Protein 6.6 G/DL (6.4-8.2) Albumin 2.3 G/DL (3.4-5.0) Arterial Blood pH 7.373 (7.350-7.450) Arterial Blood Partial Pressure CO2 78.9 mmHg (35.0-45.0) Arterial Blood Partial Pressure O2 71.0 mmHg (75.0-100.0) Arterial Blood HCO3 44.9 mmol/L (22.0-26.0) Arterial Blood Oxygen Saturation 93.5 % (95-100) Arterial Blood Base Excess 17.0 (-2-2) Jeremiah Test Positive Test 07/02/20 04:16 White Blood Count 7.4 K/UL (4.8-10.8) Red Blood Count 2.72 M/UL (4.20-5.40) Hemoglobin 8.1 G/DL (12.0-16.0) Hematocrit 25.3 % (37.0-47.0) Mean Corpuscular Volume 93 FL (80-99) Mean Corpuscular Hemoglobin 29.7 PG (27.0-31.0) Mean Corpuscular Hemoglobin Concent 31.9 G/DL (32.0-36.0) Red Cell Distribution Width 18.5 % (11.6-14.8) Platelet Count 214 K/UL (150-450) Mean Platelet Volume 7.7 FL (6.5-10.1) Neutrophils (%) (Auto) 68.4 % (45.0-75.0) Lymphocytes (%) (Auto) 20.9 % (20.0-45.0) Monocytes (%) (Auto) 6.0 % (1.0-10.0) Eosinophils (%) (Auto) 3.6 % (0.0-3.0) Basophils (%) (Auto) 1.1 % (0.0-2.0) Prothrombin Time 12.3 SEC (9.30-11.50) Prothromb Time International Ratio 1.1 (0.9-1.1) Activated Partial Thromboplast Time 28 SEC (23-33) Sodium Level 140 MMOL/L (136-145) Potassium Level 3.4 MMOL/L (3.5-5.1) Chloride Level 98 MMOL/L (98-107) Carbon Dioxide Level 42 MMOL/L (21-32) Anion Gap 0 mmol/L (5-15) Blood Urea Nitrogen 8 mg/dL (7-18) Creatinine 0.5 MG/DL (0.55-1.30) Estimat Glomerular Filtration Rate > 60 mL/min (>60) Glucose Level 124 MG/DL (74-106) Uric Acid 1.8 MG/DL (2.6-7.2) Calcium Level 9.0 MG/DL (8.5-10.1) Phosphorus Level 3.2 MG/DL (2.5-4.9) Magnesium Level 1.7 MG/DL (1.8-2.4) Total Bilirubin 1.4 MG/DL (0.2-1.0) Direct Bilirubin 0.3 MG/DL (0.0-0.3) Aspartate Amino Transf (AST/SGOT) 37 U/L (15-37) Alanine Aminotransferase (ALT/SGPT) 23 U/L (12-78) Alkaline Phosphatase 82 U/L (46-116) Total Protein 7.0 G/DL (6.4-8.2) Albumin 2.4 G/DL (3.4-5.0) Height (Feet): 5 Height (Inches): 5.00 Weight (Pounds): 308 Objective GeNL: nv Pulm: vent++ CV: rrr Abd: soft, nt, nd Ext: no cce Myron Condon MD Jul 02, 2020 06:29
--- NOTE | 2020-07-02 06:36 | General Progress Note ---
Subjective ROS Limited/Unobtainable: Yes Allergies: Coded Allergies: No Known Allergies (Unverified , 05/28/20) Subjective events noted interval notes reviewed glucose values are stable Item Value Date Time Bedside Blood Glucose 124 mg/dl H 07/02/20 0505 Bedside Blood Glucose 147 mg/dl H 07/02/20 0051 Bedside Blood Glucose 140 mg/dl H 07/01/20 1820 Bedside Blood Glucose 131 mg/dl H 07/01/20 1200 Bedside Blood Glucose 145 mg/dl H 07/01/20 0600 Objective Last 24 Hour Vital Signs Date Time Temp Pulse Resp B/P (MAP) Pulse Ox O2 Delivery O2 Flow Rate FiO2 07/02/20 04:00 70 07/02/20 04:00 Mechanical Ventilator Mechanical Ventilator 07/02/20 04:00 26 Mechanical Ventilator 70 07/02/20 04:00 26 96/59 Mechanical Ventilator 70 07/02/20 04:00 98.8 101 24 100/57 (71) 92 07/02/20 03:30 104 27 106/63 (77) 90 07/02/20 03:28 99 20 70 07/02/20 03:08 100 07/02/20 03:00 104 28 115/69 (84) 91 07/02/20 03:00 25 Mechanical Ventilator 70 07/02/20 03:00 25 108/60 Mechanical Ventilator 70 07/02/20 02:19 20 100/58 Mechanical Ventilator 70 07/02/20 02:00 103 21 98/62 (74) 93 07/02/20 02:00 22 Mechanical Ventilator 70 07/02/20 02:00 22 100/58 Mechanical Ventilator 70 07/02/20 01:52 24 Mechanical Ventilator 70 07/02/20 01:48 23 Mechanical Ventilator 70 07/02/20 01:30 100.5 102 23 90/65 (73) 90 07/02/20 01:23 99.9 07/02/20 01:00 105 22 94/60 (71) 100 07/02/20 01:00 21 Mechanical Ventilator 70 07/02/20 01:00 21 95/76 Mechanical Ventilator 70 07/02/20 00:00 Mechanical Ventilator Mechanical Ventilator 07/02/20 00:00 98.7 109 24 102/59 (73) 98 07/02/20 00:00 17 Mechanical Ventilator 70 07/02/20 00:00 17 102/59 Mechanical Ventilator 70 07/01/20 23:30 114 22 95/59 (71) 100 07/01/20 23:29 111 25 70 07/01/20 23:03 118 07/01/20 23:00 118 23 107/64 (78) 100 07/01/20 23:00 26 Mechanical Ventilator 70 07/01/20 23:00 26 109/69 Mechanical Ventilator 70 07/01/20 22:30 120 25 97/61 (73) 100 07/01/20 22:00 120 23 110/62 (78) 100 07/01/20 22:00 26 Mechanical Ventilator 70 07/01/20 22:00 26 100/63 Mechanical Ventilator 70 07/01/20 21:00 121 28 114/63 (80) 82 07/01/20 21:00 26 Mechanical Ventilator 70 07/01/20 21:00 26 98/63 Mechanical Ventilator 70 07/01/20 20:30 109 23 94/52 (66) 99 07/01/20 20:00 Mechanical Ventilator Mechanical Ventilator 07/01/20 20:00 70 07/01/20 20:00 26 Mechanical Ventilator 70 07/01/20 20:00 26 97/62 Mechanical Ventilator 70 07/01/20 20:00 98.4 108 16 100/64 (76) 100 07/01/20 19:34 107 07/01/20 19:23 108 20 70 07/01/20 19:00 26 Mechanical Ventilator 70 07/01/20 19:00 26 100/60 Mechanical Ventilator 70 07/01/20 19:00 107 26 100/60 (73) 89 07/01/20 18:30 103 24 110/69 (83) 95 07/01/20 18:00 106 26 120/72 (88) 87 07/01/20 18:00 26 Mechanical Ventilator 70 07/01/20 18:00 26 120/72 Mechanical Ventilator 70 07/01/20 17:30 105 24 105/51 (69) 85 07/01/20 17:00 23 Mechanical Ventilator 70 07/01/20 17:00 23 98/59 Mechanical Ventilator 70 07/01/20 17:00 101 23 98/59 (72) 88 07/01/20 16:30 97 22 92/54 (67) 92 07/01/20 16:00 101 07/01/20 16:00 98.6 100 24 101/58 (72) 94 07/01/20 16:00 Mechanical Ventilator Mechanical Ventilator 07/01/20 16:00 70 07/01/20 16:00 21 Mechanical Ventilator 70 07/01/20 16:00 21 101/58 Mechanical Ventilator 70 07/01/20 15:48 22 Mechanical Ventilator 70 07/01/20 15:30 99 19 99/59 (72) 96 07/01/20 15:13 101 20 70 07/01/20 15:00 103 21 101/61 (74) 96 07/01/20 15:00 20 101/61 Mechanical Ventilator 70 07/01/20 15:00 20 Mechanical Ventilator 70 07/01/20 14:30 103 19 100/57 (71) 97 07/01/20 14:00 108 20 98/56 (70) 97 07/01/20 14:00 21 98/56 Mechanical Ventilator 70 07/01/20 14:00 21 Mechanical Ventilator 70 07/01/20 13:30 109 23 97/59 (72) 98 07/01/20 13:00 24 94/58 Mechanical Ventilator 70 07/01/20 13:00 24 Mechanical Ventilator 70 07/01/20 13:00 112 23 94/58 (70) 97 07/01/20 12:30 113 24 100/62 (75) 96 07/01/20 12:00 111 07/01/20 12:00 Mechanical Ventilator Mechanical Ventilator 07/01/20 12:00 70 07/01/20 12:00 22 104/59 Mechanical Ventilator 70 07/01/20 12:00 22 Mechanical Ventilator 70 07/01/20 12:00 99.9 112 23 104/59 (74) 96 07/01/20 11:30 108 22 110/62 (78) 95 07/01/20 11:00 106 23 96/56 (69) 96 07/01/20 11:00 23 96/56 Mechanical Ventilator 70 07/01/20 11:00 23 Mechanical Ventilator 70 07/01/20 10:48 105 19 70 07/01/20 10:30 107 22 102/61 (75) 97 07/01/20 10:00 23 108/63 Mechanical Ventilator 70 07/01/20 10:00 23 Mechanical Ventilator 70 07/01/20 10:00 106 22 108/63 (78) 96 07/01/20 09:30 25 91/53 Mechanical Ventilator 70 07/01/20 09:30 102 24 86/58 (67) 100 07/01/20 09:00 103 22 99/55 (70) 99 07/01/20 09:00 23 Mechanical Ventilator 70 07/01/20 08:43 105 21 70 07/01/20 08:30 109 23 112/69 (83) 89 07/01/20 08:00 70 07/01/20 08:00 22 Mechanical Ventilator 70 07/01/20 08:00 97.7 101 22 111/57 (75) 98 07/01/20 08:00 Mechanical Ventilator Mechanical Ventilator 07/01/20 08:00 99 07/01/20 07:30 103 23 110/64 (79) 98 07/01/20 07:20 104 19 70 07/01/20 07:00 22 Mechanical Ventilator 70 07/01/20 07:00 103 22 107/58 (74) 96 Intake and Output 07/01/20 07/02/20 19:00 07:00 Intake Total 1734.5 ml 1272.75132 ml Output Total 1085 ml 480 ml Balance 649.5 ml 792.91208 ml Free Water 150 ml 60 ml IV Total 994.5 ml 762.89429 ml Tube Feeding 560 ml 450 ml Other 30 ml Output Urine Total 1075 ml 470 ml Stool Total 10 ml 10 ml # Voids 225 Laboratory Tests 07/01/20 09:55: Arterial Blood pH 7.373, Arterial Blood Partial Pressure CO2 78.9*H, Arterial Bl ood Partial Pressure O2 71.0L, Arterial Blood HCO3 44.9*H, Arterial Blood Oxygen Saturation 93.5L, Arterial Blood Base Excess 17.0*H, Jeremiah Test Positive 07/02/20 04:16: White Blood Count 7.4, Red Blood Count 2.72L, Hemoglobin 8.1L, Hematocrit 25.3L, Mean Corpuscular Volume 93, Mean Corpuscular Hemoglobin 29.7, Mean Corpuscular Hemoglobin Concent 31.9L, Red Cell Distribution Width 18.5H, Platelet Count 214, Mean Platelet Volume 7.7, Neutrophils (%) (Auto) 68.4, Lymphocytes (%) (Auto) 20.9, Monocytes (%) (Auto) 6.0, Eosinophils (%) (Auto) 3.6H, Basophils (%) (Auto) 1.1, Prothrombin Time 12.3H, Prothromb Time International Ratio 1.1, Activated Partial Thromboplast Time 28, Sodium Level 140, Potassium Level 3.4L, Chloride Level 98, Carbon Dioxide Level 42*H, Anion Gap 0L, Blood Urea Nitrogen 8, Creatinine 0.5L, Estimat Glomerular Filtration Rate > 60, Glucose Level 124H, Uric Acid 1.8L, Calcium Level 9.0, Phosphorus Level 3.2, Magnesium Level 1.7L, Total Bilirubin 1.4H, Direct Bilirubin 0.3, Aspartate Amino Transf (AST/SGOT) 37, Alanine Aminotransferase (ALT/SGPT) 23, Alkaline Phosphatase 82, Total Protein 7.0, Albumin 2.4L, Vitamin D 25-Hydroxy [Pending], 25-Hydroxy Vitamin D2 [Pending], 25-Hydroxy Vitamin D3 [Pending] Height (Feet): 5 Height (Inches): 5.00 Weight (Pounds): 308 General Appearance: no apparent distress Neck: normal alignment Cardiovascular: normal rate Respiratory/Chest: decreased breath sounds Abdomen: normal bowel sounds Objective Current Medications Medications (Trade) Dose Ordered Sig/Zelda Route PRN Reason Start Time Stop Time Status Last Admin Dose Admin Acetaminophen (Tylenol) 650 mg Q4H PRN NG Temp >100.5 06/29/20 10:15 07/29/20 10:14 07/02/20 00:53 Acetaminophen (Tylenol) 650 mg Q6H PRN NG Mild Pain (Pain Scale 1-3) 06/29/20 10:15 07/29/20 10:14 Chlorhexidine Gluconate (Inna-Hex 2%) 1 applic DAILY@2000 TOPIC 05/30/20 20:00 08/28/20 19:59 07/01/20 20:33 Dextrose (Dextrose 50%) 25 ml Q30M PRN IV Hypoglycemia 06/05/20 10:45 09/03/20 10:44 Dextrose (Dextrose 50%) 50 ml Q30M PRN IV Hypoglycemia 06/05/20 10:45 09/03/20 10:44 Dextrose/Sodium Chloride 1,000 ml @ 50 mls/hr Q20H IV 06/24/20 16:30 07/24/20 16:29 07/02/20 04:06 Docusate Sodium (Colace) 100 mg Q12HR GT 06/07/20 21:00 07/07/20 20:59 07/01/20 10:27 Enoxaparin Sodium (Lovenox) 40 mg DAILY SUBQ 05/30/20 10:00 08/28/20 09:59 07/01/20 10:28 Fentanyl Citrate 250 ml @ 1 mls/hr Q24H IV 07/01/20 09:15 07/03/20 09:14 07/02/20 02:19 Furosemide (Lasix) 40 mg DAILY IV 06/22/20 09:00 07/22/20 08:59 07/01/20 10:27 Insulin Aspart (NovoLOG) EVERY 6 HOURS SUBQ 06/07/20 00:00 09/03/20 11:59 07/02/20 00:51 Midazolam HCl 100 mg/Sodium Chloride 200 ml @ 0 mls/hr Q24H PRN IV sedation 07/01/20 15:45 07/03/20 15:37 07/02/20 01:52 Midodrine (Pro-Amatine) 10 mg Q8HR GT 06/30/20 14:00 09/12/20 13:59 07/02/20 05:05 Pantoprazole (Protonix) 40 mg Q12HR IVP 06/13/20 21:00 07/03/20 08:59 07/01/20 20:33 Polyethylene Glycol (Miralax) 17 gm BEDTIME GT 06/07/20 21:00 07/07/20 20:59 06/30/20 20:05 Vitamin D (Vitamin D) 5,000 unit DAILY GT 06/28/20 09:00 07/28/20 08:59 07/01/20 10:26 Assessment/Plan Problem List: (1) Diabetes mellitus out of control ICD Codes: E11.65 - Type 2 diabetes mellitus with hyperglycemia SNOMED: 19258578, 355257469 (2) Pneumonia due to COVID-19 virus ICD Codes: U07.1 - COVID-19; J12.82 - Pneumonia due to coronavirus disease 2019 SNOMED: 562003134974549549 (3) Respiratory distress ICD Codes: R06.03 - Acute respiratory distress; J12.82 - Pneumonia due to coronavirus disease 2019 SNOMED: 507703294 Status: unchanged Assessment/Plan: no need for basal insulin continue Novolog sliding scale every 6 hours Huber Adame MD Jul 02, 2020 06:36
--- NOTE | 2020-07-02 06:40 | NUR ---
NURSE NOTES: left message to Ashlee ( Dr[facility]) regarding critical value CO2 level of 42. will wait for call back.
--- NOTE | 2020-07-02 07:13 | NUR ---
NURSE HAND-OFF REPORT: Latest Vital Signs: Temperature 98.8 , Pulse 97 , B/P 102 /68 , Respiratory Rate 20 , O2 SAT 97 , Mechanical Ventilator, O2 Flow Rate . Vital Sign Comment: [stable] EKG Rhythm: Sinus Tachycardia Rhythm change?: Jesus TOLLIVER Notified?: Babs EDWARDS MD Response: Latest Meyers Fall Score: 70 Fall Risk: High Risk Safety Measures: Call light Within Reach, Bed Alarm Zone 1, Side Rails Side Rails x2, Bed position Low and Locked. Fall Precautions: Yellow Socks Report given to [Alfonzo ELLINGTON].
--- NOTE | 2020-07-02 08:26 | NUR ---
RD ASSESSMENT & RECOMMENDATIONS SEE CARE ACTIVITY FOR COMPLETE ASSESSMENT DAILY ESTIMATED NEEDS: Needs based on Critical care, obesity 11-14kcal/kg actual body wt (140kg) kcals/kg 4618-4118 total kcals 1.5-2.0g prot/kg IBW (64.5kg) g protein/kg 96-129 g total protein 25-30ml/kg abw (83kg) mL/kg 8681-2811 total fluid mLs NUTRITION DIAGNOSIS: Swallowing difficulty R/T respiratory failure as evidenced by pt orally intubated and sedated, on OGT feeds, held at this time. CURRENT TF: Vital 1.2 goal of 60ml/hr ENTERAL NUTRITION RECOMMENDATIONS: Vital AF 1.2 @ 60ml/hr x 24 hrs to provide 1440ml, 1728kcal, 108g prot, 1168ml free water * As able, restart TF @30ml/hr, advance as tolerated to goal. * TF @ goal meeds 100% est kcal/prot needs * HOB over 30 degrees/ water flush per MD ADDITIONAL RECOMMENDATIONS: * Calibrated bedscale wt * Monitor Propofol rate, need for TF adjustment-> now off * Monitor BGs closely : now improved, on NISS only * Pt w/ rectal tube- DC OR HOLD colace and Miralax * F/up w/ bed change and ability to restart TF -> TF held since 06/22, nwo restarted .
--- NOTE | 2020-07-02 08:35 | NUR ---
NURSE NOTES: Patient received from Ana Robles RN. she is currently sedated on versed at 10mg/hr and fentanyl at 150mcg/hr to achieve rass of -2, she is comfortably with no episodes of agitations she remains on tube feeding on formula at vital A.F. 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 she remains on ventialtior with setting of AC15, TV: 600, Fio2 at 70 and peep of 7,
--- NOTE | 2020-07-02 08:58 | NUR ---
RADIOLOGY DEPT., CHEST X-RAY DONE.-P.DYE
[2020-07-02] MEDS: Docusate 100mg/10ml Liq GT SCH ×2 (09:00→20:33)
--- NOTE | 2020-07-02 09:28 | General Progress Note ---
Subjective Constitutional: Reports: weakness Allergies: Coded Allergies: No Known Allergies (Unverified , 05/28/20) All Systems: reviewed and negative except above Subjective intubated sedated ng in icu Objective Last 24 Hour Vital Signs Date Time Temp Pulse Resp B/P (MAP) Pulse Ox O2 Delivery O2 Flow Rate FiO2 07/02/20 07:00 21 70 07/02/20 07:00 21 97/63 Mechanical Ventilator 70 07/02/20 06:45 97 20 97 07/02/20 06:30 96 23 07/02/20 06:30 95 21 102/68 (79) 95 07/02/20 06:00 20 Mechanical Ventilator 70 07/02/20 06:00 20 100/64 Mechanical Ventilator 70 07/02/20 06:00 94 22 103/63 (76) 95 07/02/20 05:30 97 22 100/67 (78) 92 07/02/20 05:00 23 Mechanical Ventilator 70 07/02/20 05:00 23 102/62 Mechanical Ventilator 70 07/02/20 05:00 98 24 106/64 (78) 94 07/02/20 04:00 70 07/02/20 04:00 Mechanical Ventilator Mechanical Ventilator 07/02/20 04:00 26 Mechanical Ventilator 70 07/02/20 04:00 26 96/59 Mechanical Ventilator 70 07/02/20 04:00 98.8 101 24 100/57 (71) 92 07/02/20 03:30 104 27 106/63 (77) 90 07/02/20 03:28 99 20 70 07/02/20 03:08 100 07/02/20 03:00 104 28 115/69 (84) 91 07/02/20 03:00 25 Mechanical Ventilator 70 07/02/20 03:00 25 108/60 Mechanical Ventilator 70 07/02/20 02:19 20 100/58 Mechanical Ventilator 70 07/02/20 02:00 103 21 98/62 (74) 93 07/02/20 02:00 22 Mechanical Ventilator 70 07/02/20 02:00 22 100/58 Mechanical Ventilator 70 07/02/20 01:52 24 Mechanical Ventilator 70 07/02/20 01:48 23 Mechanical Ventilator 70 07/02/20 01:30 100.5 102 23 90/65 (73) 90 07/02/20 01:23 99.9 07/02/20 01:00 105 22 94/60 (71) 100 07/02/20 01:00 21 Mechanical Ventilator 70 07/02/20 01:00 21 95/76 Mechanical Ventilator 70 07/02/20 00:00 Mechanical Ventilator Mechanical Ventilator 07/02/20 00:00 98.7 109 24 102/59 (73) 98 07/02/20 00:00 17 Mechanical Ventilator 70 07/02/20 00:00 17 102/59 Mechanical Ventilator 70 07/01/20 23:30 114 22 95/59 (71) 100 07/01/20 23:29 111 25 70 07/01/20 23:03 118 07/01/20 23:00 118 23 107/64 (78) 100 07/01/20 23:00 26 Mechanical Ventilator 70 07/01/20 23:00 26 109/69 Mechanical Ventilator 70 07/01/20 22:30 120 25 97/61 (73) 100 07/01/20 22:00 120 23 110/62 (78) 100 07/01/20 22:00 26 Mechanical Ventilator 70 07/01/20 22:00 26 100/63 Mechanical Ventilator 70 07/01/20 21:00 121 28 114/63 (80) 82 07/01/20 21:00 26 Mechanical Ventilator 70 07/01/20 21:00 26 98/63 Mechanical Ventilator 70 07/01/20 20:30 109 23 94/52 (66) 99 07/01/20 20:00 Mechanical Ventilator Mechanical Ventilator 07/01/20 20:00 70 07/01/20 20:00 26 Mechanical Ventilator 70 07/01/20 20:00 26 97/62 Mechanical Ventilator 70 07/01/20 20:00 98.4 108 16 100/64 (76) 100 07/01/20 19:34 107 07/01/20 19:23 108 20 70 07/01/20 19:00 26 Mechanical Ventilator 70 07/01/20 19:00 26 100/60 Mechanical Ventilator 70 07/01/20 19:00 107 26 100/60 (73) 89 07/01/20 18:30 103 24 110/69 (83) 95 07/01/20 18:00 106 26 120/72 (88) 87 07/01/20 18:00 26 Mechanical Ventilator 70 07/01/20 18:00 26 120/72 Mechanical Ventilator 70 07/01/20 17:30 105 24 105/51 (69) 85 07/01/20 17:00 23 Mechanical Ventilator 70 07/01/20 17:00 23 98/59 Mechanical Ventilator 70 07/01/20 17:00 101 23 98/59 (72) 88 07/01/20 16:30 97 22 92/54 (67) 92 07/01/20 16:00 101 07/01/20 16:00 98.6 100 24 101/58 (72) 94 07/01/20 16:00 Mechanical Ventilator Mechanical Ventilator 07/01/20 16:00 70 07/01/20 16:00 21 Mechanical Ventilator 70 07/01/20 16:00 21 101/58 Mechanical Ventilator 70 07/01/20 15:48 22 Mechanical Ventilator 70 07/01/20 15:30 99 19 99/59 (72) 96 07/01/20 15:13 101 20 70 07/01/20 15:00 103 21 101/61 (74) 96 07/01/20 15:00 20 101/61 Mechanical Ventilator 70 07/01/20 15:00 20 Mechanical Ventilator 70 07/01/20 14:30 103 19 100/57 (71) 97 07/01/20 14:00 108 20 98/56 (70) 97 07/01/20 14:00 21 98/56 Mechanical Ventilator 70 07/01/20 14:00 21 Mechanical Ventilator 70 07/01/20 13:30 109 23 97/59 (72) 98 07/01/20 13:00 24 94/58 Mechanical Ventilator 70 07/01/20 13:00 24 Mechanical Ventilator 70 07/01/20 13:00 112 23 94/58 (70) 97 07/01/20 12:30 113 24 100/62 (75) 96 07/01/20 12:00 111 07/01/20 12:00 Mechanical Ventilator Mechanical Ventilator 07/01/20 12:00 70 07/01/20 12:00 22 104/59 Mechanical Ventilator 70 07/01/20 12:00 22 Mechanical Ventilator 70 07/01/20 12:00 99.9 112 23 104/59 (74) 96 07/01/20 11:30 108 22 110/62 (78) 95 07/01/20 11:00 106 23 96/56 (69) 96 07/01/20 11:00 23 96/56 Mechanical Ventilator 70 07/01/20 11:00 23 Mechanical Ventilator 70 07/01/20 10:48 105 19 70 07/01/20 10:30 107 22 102/61 (75) 97 07/01/20 10:00 23 108/63 Mechanical Ventilator 70 07/01/20 10:00 23 Mechanical Ventilator 70 07/01/20 10:00 106 22 108/63 (78) 96 07/01/20 09:30 25 91/53 Mechanical Ventilator 70 07/01/20 09:30 102 24 86/58 (67) 100 Intake and Output0 07/01/20 07/02/20 19:00 07:00 Intake Total 1734.5 ml 1662.84397 ml Output Total 1085 ml 565 ml Balance 649.5 ml 1097.38047 ml Free Water 150 ml 90 ml IV Total 994.5 ml 1002.69837 ml Tube Feeding 560 ml 570 ml Other 30 ml Output Urine Total 1075 ml 550 ml Stool Total 10 ml 15 ml # Voids 225 Laboratory Tests 07/01/20 09:55: Arterial Blood pH 7.373, Arterial Blood Partial Pressure CO2 78.9*H, Arterial Blood Partial Pressure O2 71.0L, Arterial Blood HCO3 44.9*H, Arterial Blood Oxygen Saturation 93.5L, Arterial Blood Base Excess 17.0*H, Jeremiah Test Positive 07/02/20 04:16: White Blood Count 7.4, Red Blood Count 2.72L, Hemoglobin 8.1L, Hematocrit 25.3L, Mean Corpuscular Volume 93, Mean Corpuscular Hemoglobin 29.7, Mean Corpuscular Hemoglobin Concent 31.9L, Red Cell Distribution Width 18.5H, Platelet Count 214, Mean Platelet Volume 7.7, Neutrophils (%) (Auto) 68.4, Lymphocytes (%) (Auto) 20.9, Monocytes (%) (Auto) 6.0, Eosinophils (%) (Auto) 3.6H, Basophils (%) (Auto) 1.1, Prothrombin Time 12.3H, Prothromb Time International Ratio 1.1, Activated Partial Thromboplast Time 28, Sodium Level 140, Potassium Level 3.4L, Chloride Level 98, Carbon Dioxide Level 42*H, Anion Gap 0L, Blood Urea Nitrogen 8, Creatinine 0.5L, Estimat Glomerular Filtration Rate > 60, Glucose Level 124H, Uric Acid 1.8L, Calcium Level 9.0, Phosphorus Level 3.2, Magnesium Level 1.7L, Total Bilirubin 1.4H, Direct Bilirubin 0.3, Aspartate Amino Transf (AST/SGOT) 37, Alanine Aminotransferase (ALT/SGPT) 23, Alkaline Phosphatase 82, Total Protein 7.0, Albumin 2.4L, Vitamin D 25-Hydroxy [Pending], 25-Hydroxy Vitamin D2 [Pending], 25-Hydroxy Vitamin D3 [Pending] 07/02/20 08:20: Arterial Blood pH 7.361, Arterial Blood Partial Pressure CO2 77.8*H, Arterial Blood Partial Pressure O2 72.7L, Arterial Blood HCO3 43.1*H, Arterial Blood Oxygen Saturation 93.1L, Arterial Blood Base Excess 15.3*H, Jeremiah Test Positive Height (Feet): 5 Height (Inches): 5.00 Weight (Pounds): 308 General Appearance: lethargic EENT: normal ENT inspection Neck: normal alignment Cardiovascular: normal peripheral pulses, normal rate, regular rhythm Respiratory/Chest: chest wall non-tender, lungs clear, normal breath sounds Abdomen: normal bowel sounds, non tender, soft Extremities: normal inspection Edema: 1+ Arm (L), 1+ Arm (R), 1+ Leg (L), 1+ Leg (R), 1+ Pedal (L), 1+ Pedal (R), 1+ Generalized Edema: trace edema Neurologic: motor weakness Skin: normal pigmentation, warm/dry Assessment/Plan Problem List: (1) Hypoxia ICD Codes: R09.02 - Hypoxemia SNOMED: 559798886 (2) Respiratory failure ICD Codes: J96.90 - Respiratory failure, unspecified, unspecified whether with hypoxia or hypercapnia SNOMED: 238816511 (3) Respiratory distress ICD Codes: R06.03 - Acute respiratory distress; J12.82 - Pneumonia due to coronavirus disease 2019 SNOMED: 160997097 (4) Pneumonia due to COVID-19 virus ICD Codes: U07.1 - COVID-19; J12.82 - Pneumonia due to coronavirus disease 2019 SNOMED: 395010177360011187 Status: unchanged Assessment/Plan: vent abx id pulm f/u cbc bmp am Tank Del Cid DO Jul 02, 2020 09:28
--- NOTE | 2020-07-02 09:35 | NUR ---
NURSE NOTES: Dr. simpson placed potassium chloride 20mEq for potassium level of 3.4 on this mornings chemistry level, an additional order for magnesium 2g was placed to magnesium level of 1.7. no additional orders given
[2020-07-02] MEDS: Vitamin D 1000 units Tab GT SCH (10:03)
[2020-07-02] MEDS: Pantoprazole Inj IVP SCH ×2 (10:04→20:32)
[2020-07-02] MEDS: Enoxaparin 40mg Inj SUBQ SCH (10:05)
--- NOTE | 2020-07-02 10:45 | NUR ---
NURSE NOTES: Dr. Nava notified of the patient ABG results and current ventilator setting of AC 15, TV: 600, Fio2 of 70% with peep of 7. no orders to change the ventilator setting.
--- NOTE | 2020-07-02 11:00 | Nephrology Progress Note ---
Assessment/Plan Problem List: (1) DEVENDRA (acute kidney injury) (2) Morbid obesity (3) Diabetes mellitus out of control (4) Pneumonia due to COVID-19 virus (5) Respiratory failure Assessment Acute renal failure Obstructive uropathy, clogged Lennon Respiratory failure COVID-19 pneumonia Morbid obesity Plan July 02: Remains intubated. Remains full code. Remains on FiO2 of 70%. Labs reviewed. Abnormal electrolytes at rest. Continue per pulmonary. July 01: Remains on 70% FiO2. Full code. Intubated on ventilator. Retaining CO2. Discussed with RN. Will do ABG today. Albumin bolus given. 1 dose of Diamox given. June 30: Status quo. Labs reviewed. Abnormal electrolytes addressed. Remains full code. Remains on ventilator. Magnesium sulfate 4 gram IVPB given. June 29: Full code. Intubated on ventilator. Labs reviewed. Stable from renal standpoint of view. Continue per consultants. June 28: Remains full code. Remains intubated on ventilator. Labs reviewed. Vitamin D supplement ordered. Continue to monitor renal parameters. Continue per consultants. June 27: Remains full code. Intubated on ventilator. Labs reviewed. Abnormal electrolyte addressed. Continue to monitor renal parameters and electrolytes. Continue per consultants. June 26: Labs reviewed. Remains full code. Remains intubated. Back on NGT feeding. Continue to monitor renal parameters. June 25: Labs reviewed. Renal parameters stable. Remains full code. Due to positional status patient could not be fed via NG tube. Starting TPN? Is being entertained. Continue per consultants. June 24: Labs reviewed. Renal parameters stable. Remains full code. Remains intubated on ventilator. Continue per consultants. June 23: Labs reviewed. Renal parameters stable. Discussed with RN. Abnormal electrolyte addressed. Remains full code. Remains on ventilator. Continue per consultants. June 22: Labs reviewed. Low potassium addressed. Discussed with RAKEL Moran. Patient full code. Remains on ventilator. Continue to monitor renal parameters. June 21. Labs reviewed. Abnormal electrolyte addressed. Full code. Remains on ventilator. Medication list reviewed. Continue per pulmonary management. DC IV fluid, resume Lasix daily, check chest x-ray. June 20: Labs reviewed. Abnormal electrolytes. Patient remains full code. Continue per consultants. Noted and addressed June 19: Labs reviewed. Abnormal electrolytes noted and addressed. Remains intubated on ventilator. Remains full code. June 18: Labs reviewed. Remains intubated on ventilator. Full code. Abnormal electrolyte addressed. Continue as is. June 17: Labs reviewed. Abnormal electrolytes addressed. Patient remains full code and intubated on ventilator. Continue per consultants. Renal parameters are within normal limits. June 16: Labs reviewed. Potassium chloride replaced. Remains full code. Remains intubated on ventilator. Continue per consultants. Continue to monitor renal parameters. June 15: Labs reviewed. Serum creatinine 1. Stable from renal standpoint to view. Continue per consultants. June 14: Labs reviewed. Full code. Serum creatinine of 3.5 down to 1.4. Low potassium addressed. Continue per current treatment plan. Continue to monitor renal parameters. Midodrine started. Albumin bolus given. Previously: DC Lasix drip Increase Protonix dose Monitor renal parameters, electrolytes Per orders Subjective ROS Limited/Unobtainable: Yes Objective Objective Last 24 Hour Vital Signs Date Time Temp Pulse Resp B/P (MAP) Pulse Ox O2 Delivery O2 Flow Rate FiO2 07/02/20 07:00 21 70 07/02/20 07:00 21 97/63 Mechanical Ventilator 70 07/02/20 06:45 97 20 97 07/02/20 06:30 96 23 07/02/20 06:30 95 21 102/68 (79) 95 07/02/20 06:00 20 Mechanical Ventilator 70 07/02/20 06:00 20 100/64 Mechanical Ventilator 70 07/02/20 06:00 94 22 103/63 (76) 95 07/02/20 05:30 97 22 100/67 (78) 92 07/02/20 05:00 23 Mechanical Ventilator 70 07/02/20 05:00 23 102/62 Mechanical Ventilator 70 07/02/20 05:00 98 24 106/64 (78) 94 07/02/20 04:00 70 07/02/20 04:00 Mechanical Ventilator Mechanical Ventilator 07/02/20 04:00 26 Mechanical Ventilator 70 07/02/20 04:00 26 96/59 Mechanical Ventilator 70 07/02/20 04:00 98.8 101 24 100/57 (71) 92 07/02/20 03:30 104 27 106/63 (77) 90 07/02/20 03:28 99 20 70 07/02/20 03:08 100 07/02/20 03:00 104 28 115/69 (84) 91 07/02/20 03:00 25 Mechanical Ventilator 70 07/02/20 03:00 25 108/60 Mechanical Ventilator 70 07/02/20 02:19 20 100/58 Mechanical Ventilator 70 07/02/20 02:00 103 21 98/62 (74) 93 07/02/20 02:00 22 Mechanical Ventilator 70 07/02/20 02:00 22 100/58 Mechanical Ventilator 70 07/02/20 01:52 24 Mechanical Ventilator 70 07/02/20 01:48 23 Mechanical Ventilator 70 07/02/20 01:30 100.5 102 23 90/65 (73) 90 07/02/20 01:23 99.9 07/02/20 01:00 105 22 94/60 (71) 100 07/02/20 01:00 21 Mechanical Ventilator 70 07/02/20 01:00 21 95/76 Mechanical Ventilator 70 07/02/20 00:00 Mechanical Ventilator Mechanical Ventilator 07/02/20 00:00 98.7 109 24 102/59 (73) 98 07/02/20 00:00 17 Mechanical Ventilator 70 07/02/20 00:00 17 102/59 Mechanical Ventilator 70 07/01/20 23:30 114 22 95/59 (71) 100 07/01/20 23:29 111 25 70 07/01/20 23:03 118 07/01/20 23:00 118 23 107/64 (78) 100 07/01/20 23:00 26 Mechanical Ventilator 70 07/01/20 23:00 26 109/69 Mechanical Ventilator 70 07/01/20 22:30 120 25 97/61 (73) 100 07/01/20 22:00 120 23 110/62 (78) 100 07/01/20 22:00 26 Mechanical Ventilator 70 07/01/20 22:00 26 100/63 Mechanical Ventilator 70 07/01/20 21:00 121 28 114/63 (80) 82 07/01/20 21:00 26 Mechanical Ventilator 70 07/01/20 21:00 26 98/63 Mechanical Ventilator 70 07/01/20 20:30 109 23 94/52 (66) 99 07/01/20 20:00 Mechanical Ventilator Mechanical Ventilator 07/01/20 20:00 70 07/01/20 20:00 26 Mechanical Ventilator 70 07/01/20 20:00 26 97/62 Mechanical Ventilator 70 07/01/20 20:00 98.4 108 16 100/64 (76) 100 07/01/20 19:34 107 07/01/20 19:23 108 20 70 07/01/20 19:00 26 Mechanical Ventilator 70 07/01/20 19:00 26 100/60 Mechanical Ventilator 70 07/01/20 19:00 107 26 100/60 (73) 89 07/01/20 18:30 103 24 110/69 (83) 95 07/01/20 18:00 106 26 120/72 (88) 87 07/01/20 18:00 26 Mechanical Ventilator 70 07/01/20 18:00 26 120/72 Mechanical Ventilator 70 07/01/20 17:30 105 24 105/51 (69) 85 07/01/20 17:00 23 Mechanical Ventilator 70 07/01/20 17:00 23 98/59 Mechanical Ventilator 70 07/01/20 17:00 101 23 98/59 (72) 88 07/01/20 16:30 97 22 92/54 (67) 92 07/01/20 16:00 101 07/01/20 16:00 98.6 100 24 101/58 (72) 94 07/01/20 16:00 Mechanical Ventilator Mechanical Ventilator 07/01/20 16:00 70 07/01/20 16:00 21 Mechanical Ventilator 70 07/01/20 16:00 21 101/58 Mechanical Ventilator 70 07/01/20 15:48 22 Mechanical Ventilator 70 07/01/20 15:30 99 19 99/59 (72) 96 07/01/20 15:13 101 20 70 07/01/20 15:00 103 21 101/61 (74) 96 07/01/20 15:00 20 101/61 Mechanical Ventilator 70 07/01/20 15:00 20 Mechanical Ventilator 70 07/01/20 14:30 103 19 100/57 (71) 97 07/01/20 14:00 108 20 98/56 (70) 97 07/01/20 14:00 21 98/56 Mechanical Ventilator 70 07/01/20 14:00 21 Mechanical Ventilator 70 07/01/20 13:30 109 23 97/59 (72) 98 07/01/20 13:00 24 94/58 Mechanical Ventilator 70 07/01/20 13:00 24 Mechanical Ventilator 70 07/01/20 13:00 112 23 94/58 (70) 97 07/01/20 12:30 113 24 100/62 (75) 96 07/01/20 12:00 111 07/01/20 12:00 Mechanical Ventilator Mechanical Ventilator 07/01/20 12:00 70 07/01/20 12:00 22 104/59 Mechanical Ventilator 70 07/01/20 12:00 22 Mechanical Ventilator 70 07/01/20 12:00 99.9 112 23 104/59 (74) 96 07/01/20 11:30 108 22 110/62 (78) 95 07/01/20 11:00 106 23 96/56 (69) 96 07/01/20 11:00 23 96/56 Mechanical Ventilator 70 07/01/20 11:00 23 Mechanical Ventilator 70 Intake and Output 07/01/20 07/02/20 19:00 07:00 Intake Total 1734.5 ml 1662.54104 ml Output Total 1085 ml 565 ml Balance 649.5 ml 1097.30672 ml Free Water 150 ml 90 ml IV Total 994.5 ml 1002.16607 ml Tube Feeding 560 ml 570 ml Other 30 ml Output Urine Total 1075 ml 550 ml Stool Total 10 ml 15 ml # Voids 225 Current Medications Medications (Trade) Dose Ordered Sig/Zelda Route PRN Reason Start Time Stop Time Status Last Admin Dose Admin Acetaminophen (Tylenol) 650 mg Q4H PRN NG Temp >100.5 06/29/20 10:15 07/29/20 10:14 07/02/20 00:53 Acetaminophen (Tylenol) 650 mg Q6H PRN NG Mild Pain (Pain Scale 1-3) 06/29/20 10:15 07/29/20 10:14 Chlorhexidine Gluconate (Inna-Hex 2%) 1 applic DAILY@2000 TOPIC 05/30/20 20:00 08/28/20 19:59 07/01/20 20:33 Dextrose (Dextrose 50%) 25 ml Q30M PRN IV Hypoglycemia 06/05/20 10:45 09/03/20 10:44 Dextrose (Dextrose 50%) 50 ml Q30M PRN IV Hypoglycemia 06/05/20 10:45 09/03/20 10:44 Dextrose/Sodium Chloride 1,000 ml @ 50 mls/hr Q20H IV 06/24/20 16:30 07/24/20 16:29 07/02/20 04:06 Docusate Sodium (Colace) 100 mg Q12HR GT 06/07/20 21:00 07/07/20 20:59 07/01/20 10:27 Enoxaparin Sodium (Lovenox) 40 mg DAILY SUBQ 05/30/20 10:00 08/28/20 09:59 07/02/20 10:05 Fentanyl Citrate 250 ml @ 1 mls/hr Q24H IV 07/01/20 09:15 07/03/20 09:14 07/02/20 02:19 Furosemide (Lasix) 40 mg DAILY IV 06/22/20 09:00 07/22/20 08:59 07/02/20 10:04 Insulin Aspart (NovoLOG) EVERY 6 HOURS SUBQ 06/07/20 00:00 09/03/20 11:59 07/02/20 00:51 Magnesium Sulfate 100 ml @ 100 mls/hr Q1H IVPB 07/02/20 10:00 07/02/20 11:59 07/02/20 10:06 Midazolam HCl 100 mg/Sodium Chloride 200 ml @ 0 mls/hr Q24H PRN IV sedation 07/01/20 15:45 07/03/20 15:37 07/02/20 01:52 Midodrine (Pro-Amatine) 10 mg Q8HR GT 06/30/20 14:00 09/12/20 13:59 07/02/20 05:05 Pantoprazole (Protonix) 40 mg Q12HR IVP 06/13/20 21:00 07/03/20 08:59 07/02/20 10:04 Polyethylene Glycol (Miralax) 17 gm BEDTIME GT 06/07/20 21:00 07/07/20 20:59 06/30/20 20:05 Potassium Chloride 100 ml @ 100 mls/hr Q1H IVPB 07/02/20 10:00 07/02/20 11:59 07/02/20 10:07 Vitamin D (Vitamin D) 5,000 unit DAILY GT 06/28/20 09:00 07/28/20 08:59 07/02/20 10:03 Laboratory Tests 07/02/20 04:16: White Blood Count 7.4, Red Blood Count 2.72L, Hemoglobin 8.1L, Hematocrit 25.3L, Mean Corpuscular Volume 93, Mean Corpuscular Hemoglobin 29.7, Mean Corpuscular Hemoglobin Concent 31.9L, Red Cell Distribution Width 18.5H, Platelet Count 214, Mean Platelet Volume 7.7, Neutrophils (%) (Auto) 68.4, Lymphocytes (%) (Auto) 20.9, Monocytes (%) (Auto) 6.0, Eosinophils (%) (Auto) 3.6H, Basophils (%) (Auto) 1.1, Prothrombin Time 12.3H, Prothromb Time International Ratio 1.1, Activated Partial Thromboplast Time 28, Sodium Level 140, Potassium Level 3.4L, Chloride Level 98, Carbon Dioxide Level 42*H, Anion Gap 0L, Blood Urea Nitrogen 8, Creatinine 0.5L, Estimat Glomerular Filtration Rate > 60, Glucose Level 124H, Uric Acid 1.8L, Calcium Level 9.0, Phosphorus Level 3.2, Magnesium Level 1.7L, Total Bilirubin 1.4H, Direct Bilirubin 0.3, Aspartate Amino Transf (AST/SGOT) 37, Alanine Aminotransferase (ALT/SGPT) 23, Alkaline Phosphatase 82, Total Protein 7.0, Albumin 2.4L, Vitamin D 25-Hydroxy [Pending], 25-Hydroxy Vitamin D2 [Pending], 25-Hydroxy Vitamin D3 [Pending] 07/02/20 08:20: Arterial Blood pH 7.361, Arterial Blood Partial Pressure CO2 77.8*H, Arterial Blood Partial Pressure O2 72.7L, Arterial Blood HCO3 43.1*H, Arterial Blood Oxygen Saturation 93.1L, Arterial Blood Base Excess 15.3*H, Jeremiah Test Positive Height (Feet): 5 Height (Inches): 5.00 Weight (Pounds): 308 General Appearance: no apparent distress EENT: other - Intubated on ventilator Cardiovascular: tachycardia Respiratory/Chest: decreased breath sounds Abdomen: soft Rigo Tyler MD Jul 02, 2020 11:00
--- NOTE | 2020-07-02 11:17 | Infectious Diseases Prog Note ---
Assessment/Plan Assessment/Plan antibiotics : none A 1. covid 19 pneumonia on 70 % Fi O2 with 88 % saturation s/p remdesivir s/p solumedrol 2. respiratory failure 3. serratia pneumonia s/p rx P 1. continue off antibiotics 2. continue isolation Subjective ROS Limited/Unobtainable: Yes Allergies: Coded Allergies: No Known Allergies (Unverified , 05/28/20) Objective Last 24 Hour Vital Signs Date Time Temp Pulse Resp B/P (MAP) Pulse Ox O2 Delivery O2 Flow Rate FiO2 07/02/20 11:00 101 31 128/78 (95) 88 07/02/20 10:30 92 18 115/69 (84) 94 07/02/20 10:00 92 21 108/70 (83) 94 07/02/20 09:30 89 20 100/64 (76) 97 07/02/20 09:00 90 20 106/63 (77) 99 07/02/20 08:30 93 20 99/67 (78) 97 07/02/20 08:00 97.8 95 20 109/60 (76) 97 07/02/20 07:30 95 22 100/55 (70) 96 07/02/20 07:00 94 21 92/67 (75) 94 07/02/20 07:00 21 70 07/02/20 07:00 21 97/63 Mechanical Ventilator 70 07/02/20 06:45 97 20 97 07/02/20 06:30 96 23 07/02/20 06:30 95 21 102/68 (79) 95 07/02/20 06:00 20 Mechanical Ventilator 70 07/02/20 06:00 20 100/64 Mechanical Ventilator 70 07/02/20 06:00 94 22 103/63 (76) 95 07/02/20 05:30 97 22 100/67 (78) 92 07/02/20 05:00 23 Mechanical Ventilator 70 07/02/20 05:00 23 102/62 Mechanical Ventilator 70 07/02/20 05:00 98 24 106/64 (78) 94 07/02/20 04:00 70 07/02/20 04:00 Mechanical Ventilator Mechanical Ventilator 07/02/20 04:00 26 Mechanical Ventilator 70 07/02/20 04:00 26 96/59 Mechanical Ventilator 70 07/02/20 04:00 98.8 101 24 100/57 (71) 92 07/02/20 03:30 104 27 106/63 (77) 90 07/02/20 03:28 99 20 70 07/02/20 03:08 100 07/02/20 03:00 104 28 115/69 (84) 91 07/02/20 03:00 25 Mechanical Ventilator 70 07/02/20 03:00 25 108/60 Mechanical Ventilator 70 07/02/20 02:19 20 100/58 Mechanical Ventilator 70 07/02/20 02:00 103 21 98/62 (74) 93 07/02/20 02:00 22 Mechanical Ventilator 70 07/02/20 02:00 22 100/58 Mechanical Ventilator 70 07/02/20 01:52 24 Mechanical Ventilator 70 07/02/20 01:48 23 Mechanical Ventilator 70 07/02/20 01:30 100.5 102 23 90/65 (73) 90 07/02/20 01:23 99.9 07/02/20 01:00 105 22 94/60 (71) 100 07/02/20 01:00 21 Mechanical Ventilator 70 07/02/20 01:00 21 95/76 Mechanical Ventilator 70 07/02/20 00:00 Mechanical Ventilator Mechanical Ventilator 07/02/20 00:00 98.7 109 24 102/59 (73) 98 07/02/20 00:00 17 Mechanical Ventilator 70 07/02/20 00:00 17 102/59 Mechanical Ventilator 70 07/01/20 23:30 114 22 95/59 (71) 100 07/01/20 23:29 111 25 70 07/01/20 23:03 118 07/01/20 23:00 118 23 107/64 (78) 100 07/01/20 23:00 26 Mechanical Ventilator 70 07/01/20 23:00 26 109/69 Mechanical Ventilator 70 07/01/20 22:30 120 25 97/61 (73) 100 07/01/20 22:00 120 23 110/62 (78) 100 07/01/20 22:00 26 Mechanical Ventilator 70 07/01/20 22:00 26 100/63 Mechanical Ventilator 70 07/01/20 21:00 121 28 114/63 (80) 82 07/01/20 21:00 26 Mechanical Ventilator 70 07/01/20 21:00 26 98/63 Mechanical Ventilator 70 07/01/20 20:30 109 23 94/52 (66) 99 2/8/21 20:00 Mechanical Ventilator Mechanical Ventilator 07/01/20 20:00 70 07/01/20 20:00 26 Mechanical Ventilator 70 07/01/20 20:00 26 97/62 Mechanical Ventilator 70 07/01/20 20:00 98.4 108 16 100/64 (76) 100 07/01/20 19:34 107 07/01/20 19:23 108 20 70 07/01/20 19:00 26 Mechanical Ventilator 70 07/01/20 19:00 26 100/60 Mechanical Ventilator 70 07/01/20 19:00 107 26 100/60 (73) 89 07/01/20 18:30 103 24 110/69 (83) 95 07/01/20 18:00 106 26 120/72 (88) 87 07/01/20 18:00 26 Mechanical Ventilator 70 07/01/20 18:00 26 120/72 Mechanical Ventilator 70 07/01/20 17:30 105 24 105/51 (69) 85 07/01/20 17:00 23 Mechanical Ventilator 70 07/01/20 17:00 23 98/59 Mechanical Ventilator 70 07/01/20 17:00 101 23 98/59 (72) 88 07/01/20 16:30 97 22 92/54 (67) 92 07/01/20 16:00 101 07/01/20 16:00 98.6 100 24 101/58 (72) 94 07/01/20 16:00 Mechanical Ventilator Mechanical Ventilator 07/01/20 16:00 70 07/01/20 16:00 21 Mechanical Ventilator 70 07/01/20 16:00 21 101/58 Mechanical Ventilator 70 07/01/20 15:48 22 Mechanical Ventilator 70 07/01/20 15:30 99 19 99/59 (72) 96 07/01/20 15:13 101 20 70 07/01/20 15:00 103 21 101/61 (74) 96 07/01/20 15:00 20 101/61 Mechanical Ventilator 70 07/01/20 15:00 20 Mechanical Ventilator 70 07/01/20 14:30 103 19 100/57 (71) 97 07/01/20 14:00 108 20 98/56 (70) 97 07/01/20 14:00 21 98/56 Mechanical Ventilator 70 07/01/20 14:00 21 Mechanical Ventilator 70 07/01/20 13:30 109 23 97/59 (72) 98 07/01/20 13:00 24 94/58 Mechanical Ventilator 70 07/01/20 13:00 24 Mechanical Ventilator 70 07/01/20 13:00 112 23 94/58 (70) 97 07/01/20 12:30 113 24 100/62 (75) 96 07/01/20 12:00 111 07/01/20 12:00 Mechanical Ventilator Mechanical Ventilator 07/01/20 12:00 70 07/01/20 12:00 22 104/59 Mechanical Ventilator 70 07/01/20 12:00 22 Mechanical Ventilator 70 07/01/20 12:00 99.9 112 23 104/59 (74) 96 07/01/20 11:30 108 22 110/62 (78) 95 Height (Feet): 5 Height (Inches): 5.00 Weight (Pounds): 308 HEENT: other - intubated Laboratory Tests Test 07/02/20 04:16 07/02/20 08:20 White Blood Count 7.4 K/UL (4.8-10.8) Red Blood Count 2.72 M/UL (4.20-5.40) L Hemoglobin 8.1 G/DL (12.0-16.0) L Hematocrit 25.3 % (37.0-47.0) L Mean Corpuscular Volume 93 FL (80-99) Mean Corpuscular Hemoglobin 29.7 PG (27.0-31.0) Mean Corpuscular Hemoglobin Concent 31.9 G/DL (32.0-36.0) L Red Cell Distribution Width 18.5 % (11.6-14.8) H Platelet Count 214 K/UL (150-450) Mean Platelet Volume 7.7 FL (6.5-10.1) Neutrophils (%) (Auto) 68.4 % (45.0-75.0) Lymphocytes (%) (Auto) 20.9 % (20.0-45.0) Monocytes (%) (Auto) 6.0 % (1.0-10.0) Eosinophils (%) (Auto) 3.6 % (0.0-3.0) H Basophils (%) (Auto) 1.1 % (0.0-2.0) Prothrombin Time 12.3 SEC (9.30-11.50) H Prothromb Time International Ratio 1.1 (0.9-1.1) Activated Partial Thromboplast Time 28 SEC (23-33) Sodium Level 140 MMOL/L (136-145) Potassium Level 3.4 MMOL/L (3.5-5.1) L Chloride Level 98 MMOL/L (98-107) Carbon Dioxide Level 42 MMOL/L (21-32) *H Anion Gap 0 mmol/L (5-15) L Blood Urea Nitrogen 8 mg/dL (7-18) Creatinine 0.5 MG/DL (0.55-1.30) L Estimat Glomerular Filtration Rate > 60 mL/min (>60) Glucose Level 124 MG/DL (74-106) H Uric Acid 1.8 MG/DL (2.6-7.2) L Calcium Level 9.0 MG/DL (8.5-10.1) Phosphorus Level 3.2 MG/DL (2.5-4.9) Magnesium Level 1.7 MG/DL (1.8-2.4) L Total Bilirubin 1.4 MG/DL (0.2-1.0) H Direct Bilirubin 0.3 MG/DL (0.0-0.3) Aspartate Amino Transf (AST/SGOT) 37 U/L (15-37) Alanine Aminotransferase (ALT/SGPT) 23 U/L (12-78) Alkaline Phosphatase 82 U/L (46-116) Total Protein 7.0 G/DL (6.4-8.2) Albumin 2.4 G/DL (3.4-5.0) L Vitamin D 25-Hydroxy Pending 25-Hydroxy Vitamin D2 Pending 25-Hydroxy Vitamin D3 Pending Arterial Blood pH 7.361 (7.350-7.450) Arterial Blood Partial Pressure CO2 77.8 mmHg (35.0-45.0) *H Arterial Blood Partial Pressure O2 72.7 mmHg (75.0-100.0) L Arterial Blood HCO3 43.1 mmol/L (22.0-26.0) *H Arterial Blood Oxygen Saturation 93.1 % (95-100) L Arterial Blood Base Excess 15.3 (-2-2) *H Jeremiah Test Positive Current Medications Medications (Trade) Dose Ordered Sig/Zelda Route PRN Reason Start Time Stop Time Status Last Admin Dose Admin Acetaminophen (Tylenol) 650 mg Q4H PRN NG Temp >100.5 06/29/20 10:15 07/29/20 10:14 07/02/20 00:53 Acetaminophen (Tylenol) 650 mg Q6H PRN NG Mild Pain (Pain Scale 1-3) 06/29/20 10:15 07/29/20 10:14 Chlorhexidine Gluconate (Inna-Hex 2%) 1 applic DAILY@2000 TOPIC 05/30/20 20:00 08/28/20 19:59 07/01/20 20:33 Dextrose (Dextrose 50%) 25 ml Q30M PRN IV Hypoglycemia 06/05/20 10:45 09/03/20 10:44 Dextrose (Dextrose 50%) 50 ml Q30M PRN IV Hypoglycemia 06/05/20 10:45 09/03/20 10:44 Dextrose/Sodium Chloride 1,000 ml @ 50 mls/hr Q20H IV 06/24/20 16:30 07/24/20 16:29 07/02/20 04:06 Docusate Sodium (Colace) 100 mg Q12HR GT 06/07/20 21:00 07/07/20 20:59 07/01/20 10:27 Enoxaparin Sodium (Lovenox) 40 mg DAILY SUBQ 05/30/20 10:00 08/28/20 09:59 07/02/20 10:05 Fentanyl Citrate 250 ml @ 1 mls/hr Q24H IV 07/01/20 09:15 07/03/20 09:14 07/02/20 02:19 Furosemide (Lasix) 40 mg DAILY IV 06/22/20 09:00 07/22/20 08:59 07/02/20 10:04 Insulin Aspart (NovoLOG) EVERY 6 HOURS SUBQ 06/07/20 00:00 09/03/20 11:59 07/02/20 00:51 Magnesium Sulfate 100 ml @ 100 mls/hr Q1H IVPB 07/02/20 10:00 07/02/20 11:59 07/02/20 10:06 Midazolam HCl 100 mg/Sodium Chloride 200 ml @ 0 mls/hr Q24H PRN IV sedation 07/01/20 15:45 07/03/20 15:37 07/02/20 01:52 Midodrine (Pro-Amatine) 10 mg Q8HR GT 06/30/20 14:00 09/12/20 13:59 07/02/20 05:05 Pantoprazole (Protonix) 40 mg Q12HR IVP 06/13/20 21:00 07/03/20 08:59 07/02/20 10:04 Polyethylene Glycol (Miralax) 17 gm BEDTIME GT 06/07/20 21:00 07/07/20 20:59 06/30/20 20:05 Potassium Chloride 100 ml @ 100 mls/hr Q1H IVPB 07/02/20 10:00 07/02/20 11:59 07/02/20 10:07 Vitamin D (Vitamin D) 5,000 unit DAILY GT 06/28/20 09:00 07/28/20 08:59 07/02/20 10:03 Fili Mcelroy MD Jul 02, 2020 11:17
--- NOTE | 2020-07-02 11:46 | Pulmonology Progress Note ---
Subjective ROS Limited/Unobtainable: Yes Interval Events: Remains intubated Constitutional: Denies: fever HEENT: Repors: no symptoms Respiratory: Reports: no symptoms Cardiovascular: Reports: no symptoms Gastrointestinal/Abdominal: Reports: no symptoms Genitourinary: Reports: no symptoms Allergies: Coded Allergies: No Known Allergies (Unverified , 05/28/20) All Systems: reviewed and negative except above Objective Last 24 Hour Vital Signs Date Time Temp Pulse Resp B/P (MAP) Pulse Ox O2 Delivery O2 Flow Rate FiO2 07/02/20 11:00 101 31 128/78 (95) 88 07/02/20 10:30 92 18 115/69 (84) 94 07/02/20 10:00 92 21 108/70 (83) 94 07/02/20 09:30 89 20 100/64 (76) 97 07/02/20 09:00 90 20 106/63 (77) 99 07/02/20 08:30 93 20 99/67 (78) 97 07/02/20 08:00 97.8 95 20 109/60 (76) 97 07/02/20 08:00 70 07/02/20 08:00 Mechanical Ventilator Mechanical Ventilator 07/02/20 07:30 95 22 100/55 (70) 96 07/02/20 07:00 94 21 92/67 (75) 94 07/02/20 07:00 21 70 07/02/20 07:00 21 97/63 Mechanical Ventilator 70 07/02/20 06:45 97 20 97 07/02/20 06:30 96 23 07/02/20 06:30 95 21 102/68 (79) 95 07/02/20 06:00 20 Mechanical Ventilator 70 07/02/20 06:00 20 100/64 Mechanical Ventilator 70 07/02/20 06:00 94 22 103/63 (76) 95 07/02/20 05:30 97 22 100/67 (78) 92 07/02/20 05:00 23 Mechanical Ventilator 70 07/02/20 05:00 23 102/62 Mechanical Ventilator 70 07/02/20 05:00 98 24 106/64 (78) 94 07/02/20 04:00 70 07/02/20 04:00 Mechanical Ventilator Mechanical Ventilator 07/02/20 04:00 26 Mechanical Ventilator 70 07/02/20 04:00 26 96/59 Mechanical Ventilator 70 07/02/20 04:00 98.8 101 24 100/57 (71) 92 07/02/20 03:30 104 27 106/63 (77) 90 07/02/20 03:28 99 20 70 07/02/20 03:08 100 07/02/20 03:00 104 28 115/69 (84) 91 07/02/20 03:00 25 Mechanical Ventilator 70 07/02/20 03:00 25 108/60 Mechanical Ventilator 70 07/02/20 02:19 20 100/58 Mechanical Ventilator 70 07/02/20 02:00 103 21 98/62 (74) 93 07/02/20 02:00 22 Mechanical Ventilator 70 07/02/20 02:00 22 100/58 Mechanical Ventilator 70 07/02/20 01:52 24 Mechanical Ventilator 70 07/02/20 01:48 23 Mechanical Ventilator 70 07/02/20 01:30 100.5 102 23 90/65 (73) 90 07/02/20 01:23 99.9 07/02/20 01:00 105 22 94/60 (71) 100 07/02/20 01:00 21 Mechanical Ventilator 70 07/02/20 01:00 21 95/76 Mechanical Ventilator 70 07/02/20 00:00 Mechanical Ventilator Mechanical Ventilator 07/02/20 00:00 98.7 109 24 102/59 (73) 98 07/02/20 00:00 17 Mechanical Ventilator 70 07/02/20 00:00 17 102/59 Mechanical Ventilator 70 07/01/20 23:30 114 22 95/59 (71) 100 07/01/20 23:29 111 25 70 07/01/20 23:03 118 07/01/20 23:00 118 23 107/64 (78) 100 07/01/20 23:00 26 Mechanical Ventilator 70 07/01/20 23:00 26 109/69 Mechanical Ventilator 70 07/01/20 22:30 120 25 97/61 (73) 100 07/01/20 22:00 120 23 110/62 (78) 100 07/01/20 22:00 26 Mechanical Ventilator 70 07/01/20 22:00 26 100/63 Mechanical Ventilator 70 07/01/20 21:00 121 28 114/63 (80) 82 07/01/20 21:00 26 Mechanical Ventilator 70 07/01/20 21:00 26 98/63 Mechanical Ventilator 70 07/01/20 20:30 109 23 94/52 (66) 99 07/01/20 20:00 Mechanical Ventilator Mechanical Ventilator 07/01/20 20:00 70 07/01/20 20:00 26 Mechanical Ventilator 70 07/01/20 20:00 26 97/62 Mechanical Ventilator 70 07/01/20 20:00 98.4 108 16 100/64 (76) 100 07/01/20 19:34 107 07/01/20 19:23 108 20 70 07/01/20 19:00 26 Mechanical Ventilator 70 07/01/20 19:00 26 100/60 Mechanical Ventilator 70 07/01/20 19:00 107 26 100/60 (73) 89 07/01/20 18:30 103 24 110/69 (83) 95 07/01/20 18:00 106 26 120/72 (88) 87 07/01/20 18:00 26 Mechanical Ventilator 70 07/01/20 18:00 26 120/72 Mechanical Ventilator 70 07/01/20 17:30 105 24 105/51 (69) 85 07/01/20 17:00 23 Mechanical Ventilator 70 07/01/20 17:00 23 98/59 Mechanical Ventilator 70 07/01/20 17:00 101 23 98/59 (72) 88 07/01/20 16:30 97 22 92/54 (67) 92 07/01/20 16:00 101 07/01/20 16:00 98.6 100 24 101/58 (72) 94 07/01/20 16:00 Mechanical Ventilator Mechanical Ventilator 07/01/20 16:00 70 07/01/20 16:00 21 Mechanical Ventilator 70 07/01/20 16:00 21 101/58 Mechanical Ventilator 70 07/01/20 15:48 22 Mechanical Ventilator 70 07/01/20 15:30 99 19 99/59 (72) 96 07/01/20 15:13 101 20 70 07/01/20 15:00 103 21 101/61 (74) 96 07/01/20 15:00 20 101/61 Mechanical Ventilator 70 07/01/20 15:00 20 Mechanical Ventilator 70 07/01/20 14:30 103 19 100/57 (71) 97 07/01/20 14:00 108 20 98/56 (70) 97 07/01/20 14:00 21 98/56 Mechanical Ventilator 70 07/01/20 14:00 21 Mechanical Ventilator 70 07/01/20 13:30 109 23 97/59 (72) 98 07/01/20 13:00 24 94/58 Mechanical Ventilator 70 07/01/20 13:00 24 Mechanical Ventilator 70 07/01/20 13:00 112 23 94/58 (70) 97 07/01/20 12:30 113 24 100/62 (75) 96 07/01/20 12:00 111 07/01/20 12:00 Mechanical Ventilator Mechanical Ventilator 07/01/20 12:00 70 07/01/20 12:00 22 104/59 Mechanical Ventilator 70 07/01/20 12:00 22 Mechanical Ventilator 70 07/01/20 12:00 99.9 112 23 104/59 (74) 96 Intake and Output 07/01/20 07/02/20 19:00 07:00 Intake Total 1734.5 ml 1662.32038 ml Output Total 1085 ml 565 ml Balance 649.5 ml 1097.28347 ml Free Water 150 ml 90 ml IV Total 994.5 ml 1002.26442 ml Tube Feeding 560 ml 570 ml Other 30 ml Output Urine Total 1075 ml 550 ml Stool Total 10 ml 15 ml # Voids 225 General Appearance: no acute distress HEENT: normocephalic Respiratory: chest wall non-tender Cardiovascular: normal peripheral pulses Abdomen: normal bowel sounds Laboratory Tests 07/02/20 04:16: White Blood Count 7.4, Red Blood Count 2.72L, Hemoglobin 8.1L, Hematocrit 25.3L, Mean Corpuscular Volume 93, Mean Corpuscular Hemoglobin 29.7, Mean Corpuscular Hemoglobin Concent 31.9L, Red Cell Distribution Width 18.5H, Platelet Count 214, Mean Platelet Volume 7.7, Neutrophils (%) (Auto) 68.4, Lymphocytes (%) (Auto) 20.9, Monocytes (%) (Auto) 6.0, Eosinophils (%) (Auto) 3.6H, Basophils (%) (Auto) 1.1, Prothrombin Time 12.3H, Prothromb Time International Ratio 1.1, Activated Partial Thromboplast Time 28, Sodium Level 140, Potassium Level 3.4L, Chloride Level 98, Carbon Dioxide Level 42*H, Anion Gap 0L, Blood Urea Nitrogen 8, Creatinine 0.5L, Estimat Glomerular Filtration Rate > 60, Glucose Level 124H, Uric Acid 1.8L, Calcium Level 9.0, Phosphorus Level 3.2, Magnesium Level 1.7L, Total Bilirubin 1.4H, Direct Bilirubin 0.3, Aspartate Amino Transf (AST/SGOT) 37, Alanine Aminotransferase (ALT/SGPT) 23, Alkaline Phosphatase 82, Total Protein 7.0, Albumin 2.4L, Vitamin D 25-Hydroxy [Pending], 25-Hydroxy Vitamin D2 [Pending], 25-Hydroxy Vitamin D3 [Pending] 07/02/20 08:20: Arterial Blood pH 7.361, Arterial Blood Partial Pressure CO2 77.8*H, Arterial Blood Partial Pressure O2 72.7L, Arterial Blood HCO3 43.1*H, Arterial Blood Oxygen Saturation 93.1L, Arterial Blood Base Excess 15.3*H, Jeremiah Test Positive Current Medications Medications (Trade) Dose Ordered Sig/Zelda Route PRN Reason Start Time Stop Time Status Last Admin Dose Admin Acetaminophen (Tylenol) 650 mg Q4H PRN NG Temp >100.5 06/29/20 10:15 07/29/20 10:14 07/02/20 00:53 Acetaminophen (Tylenol) 650 mg Q6H PRN NG Mild Pain (Pain Scale 1-3) 06/29/20 10:15 07/29/20 10:14 Chlorhexidine Gluconate (Inna-Hex 2%) 1 applic DAILY@2000 TOPIC 05/30/20 20:00 08/28/20 19:59 07/01/20 20:33 Dextrose (Dextrose 50%) 25 ml Q30M PRN IV Hypoglycemia 06/05/20 10:45 09/03/20 10:44 Dextrose (Dextrose 50%) 50 ml Q30M PRN IV Hypoglycemia 06/05/20 10:45 09/03/20 10:44 Dextrose/Sodium Chloride 1,000 ml @ 50 mls/hr Q20H IV 06/24/20 16:30 07/24/20 16:29 07/02/20 04:06 Docusate Sodium (Colace) 100 mg Q12HR GT 06/07/20 21:00 07/07/20 20:59 07/01/20 10:27 Enoxaparin Sodium (Lovenox) 40 mg DAILY SUBQ 05/30/20 10:00 08/28/20 09:59 07/02/20 10:05 Fentanyl Citrate 250 ml @ 1 mls/hr Q24H IV 07/01/20 09:15 07/03/20 09:14 07/02/20 02:19 Furosemide (Lasix) 40 mg DAILY IV 06/22/20 09:00 07/22/20 08:59 07/02/20 10:04 Insulin Aspart (NovoLOG) EVERY 6 HOURS SUBQ 06/07/20 00:00 09/03/20 11:59 07/02/20 00:51 Magnesium Sulfate 100 ml @ 100 mls/hr Q1H IVPB 07/02/20 10:00 07/02/20 11:59 07/02/20 10:06 Midazolam HCl 100 mg/Sodium Chloride 200 ml @ 0 mls/hr Q24H PRN IV sedation 07/01/20 15:45 07/03/20 15:37 07/02/20 01:52 Midodrine (Pro-Amatine) 10 mg Q8HR GT 06/30/20 14:00 09/12/20 13:59 07/02/20 05:05 Pantoprazole (Protonix) 40 mg Q12HR IVP 06/13/20 21:00 07/03/20 08:59 07/02/20 10:04 Polyethylene Glycol (Miralax) 17 gm BEDTIME GT 06/07/20 21:00 07/07/20 20:59 06/30/20 20:05 Potassium Chloride 100 ml @ 100 mls/hr Q1H IVPB 07/02/20 10:00 07/02/20 11:59 07/02/20 10:07 Vitamin D (Vitamin D) 5,000 unit DAILY GT 06/28/20 09:00 07/28/20 08:59 07/02/20 10:03 Assessment/Plan Assessment/Plan 1. COVID-19 pneumonia -Intubated 05/28/20 - We will continue broad-spectrum antibiotics. -s/p solumedrol, Rocephin -Continue PEEP 6 ->7 - Peak airway pressures high; 45 - FiO2 100% -> 90 ->80->60 ->40 ->80 ->100 ->80 -70%; -will continue OGT feeding -Continue sedation; Need to keep patient completely sedated. 2. Hyponatremia -Per primary MD 3. Elevated inflammatory markers - has high D dimer; Lovenox on hold due to hematuria 4. Decrease PEEP Continue weaning efforts May need trach Discussed with surgery Now down to 70 FiO2 ; PEEP 7 WIll request surgery for trach Long discussion with family who wish to wean her off the oxygen eventually instead of trach. Trach if "necessary" per family. Discussed with niece. She was advised regarding poor prognosis. Discussed with RN. Noted bioethics evaluation. Javier Nava MD Jul 02, 2020 11:46
--- NOTE | 2020-07-02 12:13 | Surgery Progress Note ---
Surgery Progress Note Subjective Additional Comments Working to wean. Gas noted labs noted. FiO2 70% PEEP of 7 weaning. Satting 96% today. Plan trach when stable. Objective Last 24 Hour Vital Signs Date Time Temp Pulse Resp B/P (MAP) Pulse Ox O2 Delivery O2 Flow Rate FiO2 07/02/20 12:00 98 07/02/20 11:00 101 31 128/78 (95) 88 07/02/20 10:30 92 18 115/69 (84) 94 07/02/20 10:00 92 21 108/70 (83) 94 07/02/20 09:30 89 20 100/64 (76) 97 07/02/20 09:00 90 20 106/63 (77) 99 07/02/20 08:30 93 20 99/67 (78) 97 07/02/20 08:00 97.8 95 20 109/60 (76) 97 07/02/20 08:00 70 07/02/20 08:00 Mechanical Ventilator Mechanical Ventilator 07/02/20 08:00 100 07/02/20 07:30 95 22 100/55 (70) 96 07/02/20 07:00 94 21 92/67 (75) 94 07/02/20 07:00 21 70 07/02/20 07:00 21 97/63 Mechanical Ventilator 70 07/02/20 06:45 97 20 97 07/02/20 06:30 96 23 07/02/20 06:30 95 21 102/68 (79) 95 07/02/20 06:00 20 Mechanical Ventilator 70 07/02/20 06:00 20 100/64 Mechanical Ventilator 70 07/02/20 06:00 94 22 103/63 (76) 95 07/02/20 05:30 97 22 100/67 (78) 92 07/02/20 05:00 23 Mechanical Ventilator 70 07/02/20 05:00 23 102/62 Mechanical Ventilator 70 07/02/20 05:00 98 24 106/64 (78) 94 07/02/20 04:00 70 07/02/20 04:00 Mechanical Ventilator Mechanical Ventilator 07/02/20 04:00 26 Mechanical Ventilator 70 07/02/20 04:00 26 96/59 Mechanical Ventilator 70 07/02/20 04:00 98.8 101 24 100/57 (71) 92 07/02/20 03:30 104 27 106/63 (77) 90 07/02/20 03:28 99 20 70 07/02/20 03:08 100 07/02/20 03:00 104 28 115/69 (84) 91 07/02/20 03:00 25 Mechanical Ventilator 70 07/02/20 03:00 25 108/60 Mechanical Ventilator 70 07/02/20 02:19 20 100/58 Mechanical Ventilator 70 07/02/20 02:00 103 21 98/62 (74) 93 07/02/20 02:00 22 Mechanical Ventilator 70 07/02/20 02:00 22 100/58 Mechanical Ventilator 70 07/02/20 01:52 24 Mechanical Ventilator 70 07/02/20 01:48 23 Mechanical Ventilator 70 07/02/20 01:30 100.5 102 23 90/65 (73) 90 07/02/20 01:23 99.9 07/02/20 01:00 105 22 94/60 (71) 100 07/02/20 01:00 21 Mechanical Ventilator 70 07/02/20 01:00 21 95/76 Mechanical Ventilator 70 07/02/20 00:00 Mechanical Ventilator Mechanical Ventilator 07/02/20 00:00 98.7 109 24 102/59 (73) 98 07/02/20 00:00 17 Mechanical Ventilator 70 07/02/20 00:00 17 102/59 Mechanical Ventilator 70 07/01/20 23:30 114 22 95/59 (71) 100 07/01/20 23:29 111 25 70 07/01/20 23:03 118 07/01/20 23:00 118 23 107/64 (78) 100 07/01/20 23:00 26 Mechanical Ventilator 70 07/01/20 23:00 26 109/69 Mechanical Ventilator 70 07/01/20 22:30 120 25 97/61 (73) 100 07/01/20 22:00 120 23 110/62 (78) 100 07/01/20 22:00 26 Mechanical Ventilator 70 07/01/20 22:00 26 100/63 Mechanical Ventilator 70 07/01/20 21:00 121 28 114/63 (80) 82 07/01/20 21:00 26 Mechanical Ventilator 70 07/01/20 21:00 26 98/63 Mechanical Ventilator 70 07/01/20 20:30 109 23 94/52 (66) 99 07/01/20 20:00 Mechanical Ventilator Mechanical Ventilator 07/01/20 20:00 70 07/01/20 20:00 26 Mechanical Ventilator 70 07/01/20 20:00 26 97/62 Mechanical Ventilator 70 07/01/20 20:00 98.4 108 16 100/64 (76) 100 07/01/20 19:34 107 07/01/20 19:23 108 20 70 07/01/20 19:00 26 Mechanical Ventilator 70 07/01/20 19:00 26 100/60 Mechanical Ventilator 70 07/01/20 19:00 107 26 100/60 (73) 89 07/01/20 18:30 103 24 110/69 (83) 95 07/01/20 18:00 106 26 120/72 (88) 87 07/01/20 18:00 26 Mechanical Ventilator 70 07/01/20 18:00 26 120/72 Mechanical Ventilator 70 07/01/20 17:30 105 24 105/51 (69) 85 07/01/20 17:00 23 Mechanical Ventilator 70 07/01/20 17:00 23 98/59 Mechanical Ventilator 70 07/01/20 17:00 101 23 98/59 (72) 88 07/01/20 16:30 97 22 92/54 (67) 92 07/01/20 16:00 101 07/01/20 16:00 98.6 100 24 101/58 (72) 94 07/01/20 16:00 Mechanical Ventilator Mechanical Ventilator 07/01/20 16:00 70 07/01/20 16:00 21 Mechanical Ventilator 70 07/01/20 16:00 21 101/58 Mechanical Ventilator 70 07/01/20 15:48 22 Mechanical Ventilator 70 07/01/20 15:30 99 19 99/59 (72) 96 07/01/20 15:13 101 20 70 07/01/20 15:00 103 21 101/61 (74) 96 07/01/20 15:00 20 101/61 Mechanical Ventilator 70 07/01/20 15:00 20 Mechanical Ventilator 70 07/01/20 14:30 103 19 100/57 (71) 97 07/01/20 14:00 108 20 98/56 (70) 97 07/01/20 14:00 21 98/56 Mechanical Ventilator 70 07/01/20 14:00 21 Mechanical Ventilator 70 07/01/20 13:30 109 23 97/59 (72) 98 07/01/20 13:00 24 94/58 Mechanical Ventilator 70 07/01/20 13:00 24 Mechanical Ventilator 70 07/01/20 13:00 112 23 94/58 (70) 97 07/01/20 12:30 113 24 100/62 (75) 96 I&O Intake and Output 07/01/20 07/02/20 19:00 07:00 Intake Total 1734.5 ml 1662.68241 ml Output Total 1085 ml 565 ml Balance 649.5 ml 1097.66869 ml Free Water 150 ml 90 ml IV Total 994.5 ml 1002.23441 ml Tube Feeding 560 ml 570 ml Other 30 ml Output Urine Total 1075 ml 550 ml Stool Total 10 ml 15 ml # Voids 225 Dressing: saturated Cardiovascular: RSR Respiratory: decreased breath sounds Abdomen: soft, flat, non-tender, present bowel sounds, non-distended Extremities: edema, no tenderness, no cyanosis Laboratory Tests Test 07/02/20 04:16 07/02/20 08:20 White Blood Count 7.4 K/UL (4.8-10.8) Red Blood Count 2.72 M/UL (4.20-5.40) L Hemoglobin 8.1 G/DL (12.0-16.0) L Hematocrit 25.3 % (37.0-47.0) L Mean Corpuscular Volume 93 FL (80-99) Mean Corpuscular Hemoglobin 29.7 PG (27.0-31.0) Mean Corpuscular Hemoglobin Concent 31.9 G/DL (32.0-36.0) L Red Cell Distribution Width 18.5 % (11.6-14.8) H Platelet Count 214 K/UL (150-450) Mean Platelet Volume 7.7 FL (6.5-10.1) Neutrophils (%) (Auto) 68.4 % (45.0-75.0) Lymphocytes (%) (Auto) 20.9 % (20.0-45.0) Monocytes (%) (Auto) 6.0 % (1.0-10.0) Eosinophils (%) (Auto) 3.6 % (0.0-3.0) H Basophils (%) (Auto) 1.1 % (0.0-2.0) Prothrombin Time 12.3 SEC (9.30-11.50) H Prothromb Time International Ratio 1.1 (0.9-1.1) Activated Partial Thromboplast Time 28 SEC (23-33) Sodium Level 140 MMOL/L (136-145) Potassium Level 3.4 MMOL/L (3.5-5.1) L Chloride Level 98 MMOL/L (98-107) Carbon Dioxide Level 42 MMOL/L (21-32) *H Anion Gap 0 mmol/L (5-15) L Blood Urea Nitrogen 8 mg/dL (7-18) Creatinine 0.5 MG/DL (0.55-1.30) L Estimat Glomerular Filtration Rate > 60 mL/min (>60) Glucose Level 124 MG/DL (74-106) H Uric Acid 1.8 MG/DL (2.6-7.2) L Calcium Level 9.0 MG/DL (8.5-10.1) Phosphorus Level 3.2 MG/DL (2.5-4.9) Magnesium Level 1.7 MG/DL (1.8-2.4) L Total Bilirubin 1.4 MG/DL (0.2-1.0) H Direct Bilirubin 0.3 MG/DL (0.0-0.3) Aspartate Amino Transf (AST/SGOT) 37 U/L (15-37) Alanine Aminotransferase (ALT/SGPT) 23 U/L (12-78) Alkaline Phosphatase 82 U/L (46-116) Total Protein 7.0 G/DL (6.4-8.2) Albumin 2.4 G/DL (3.4-5.0) L Vitamin D 25-Hydroxy Pending 25-Hydroxy Vitamin D2 Pending 25-Hydroxy Vitamin D3 Pending Arterial Blood pH 7.361 (7.350-7.450) Arterial Blood Partial Pressure CO2 77.8 mmHg (35.0-45.0) *H Arterial Blood Partial Pressure O2 72.7 mmHg (75.0-100.0) L Arterial Blood HCO3 43.1 mmol/L (22.0-26.0) *H Arterial Blood Oxygen Saturation 93.1 % (95-100) L Arterial Blood Base Excess 15.3 (-2-2) *H Jeremiah Test Positive Plan Problems: (1) Respiratory distress (2) Respiratory failure Assessment & Plan: 50-year-old female Covid positive respiratory insufficiency intubated on ventilatory support declining. Leukocytosis increase oxygen requirement. Vent settings per pulmonology reviewed identified and agree. Unfortunately further surgical invention at this time is not appropriate as patient is not a candidate and her current condition. Prognosis overall guarded. Tracheostomy can be considered in the future if recovering or shows improvement and requires unable to be weaned from ventilator support. Currently okay for nutritional optimization with NG tube. Will need significant monitoring for decubitus formation given patient's size and condition. Okay for air mattress tolerated. Turn every 2 hours as tolerated. Patient is otherwise critically ill and blood pressure labile. Will need to monitor closely.Bilateral infiltrates are again demonstrated. Stable tube and line positions. will need trach will need to wean vent first (3) Hypoxia (4) Pneumonia due to COVID-19 virus Assessment & Plan: ++ as per pulm and ID (5) Diabetes mellitus out of control Assessment & Plan: DAILY ESTIMATED NEEDS: Needs based on Critical care, obesity 11-14kcal/kg actual body wt (140kg) kcals/kg 3487-6854 total kcals 1.5-2.0g prot/kg IBW (64.5kg) g protein/kg 96-129 g total protein 25-30ml/kg abw (83kg) mL/kg 3910-7576 total fluid mLs NUTRITION DIAGNOSIS: Swallowing difficulty R/T respiratory failure as evidenced by pt orally intubated and sedated, on OGT feeds. CURRENT TF: Vital 1.2 goal of 60ml/hr ENTERAL NUTRITION RECOMMENDATIONS: Vital AF 1.2 @ 60ml/hr x 24 hrs to provide 1440ml, 1728kcal, 108g prot, 1168ml free water * Maintain current critical care and carb controlled TF formula of Vital AF * TF @ goal meeds 100% est kcal/prot needs * HOB over 30 degrees/ water flush per MD TF may be lowered to 55ml/hr for improved BG control while maintaining Kcal and pro needs. ADDITIONAL RECOMMENDATIONS: * Calibrated bedscale wt * Monitor Propofol rate, need for TF adjustment-> now off * Monitor BGs closely : now improved, on novolog q 6rs + NISS * Monitor lytes- K elevated, monitor need for TF change * Rec bowel regimen- now w/ rectal tube . Az Devine Jul 02, 2020 12:13
--- NOTE | 2020-07-02 13:05 | NUR ---
NURSE NOTES: Dr. Mcelroy informed the patient covid test on 06/28 results were negative and asked about removing the patient isolation precaustion, informed that the patient needs to have a period of 24 hours free of fevers, not be placed on the cooling blanket, and no be given Tylenol to assure the patient is note having residual symptoms of covid.
--- NOTE | 2020-07-02 13:23 | NUR ---
CASE MANAGEMENT:REVIEW 07/02/20 SI: COVID PNEUMONIA ~ INTUBATED 100.5 101 31 128/78 88% ON VENT SUPPORT W/70% FIO2 H/H-8.1/25.3 PCO2+77.8 PO2-72.7 HCO3+43.1 IS:VERSED GTT FENTANYL GTT IV LASIX QD IV PROTONIX Q12 LOVENOX SQ QD IVF@50/HR MIDODRINE NG Q8HRS : ICU STATUS DCP: FROM HOME PLAN: CONSENT FOR TRACHEOSTOMY
--- NOTE | 2020-07-02 13:31 | NUR ---
INSURNACE CLINICALS AND REVIEWS FAXED TO [facility] T: [phone] EXT [phone] F: [phone] REF 2020 [phone]
--- NOTE | 2020-07-02 14:35 | NUR ---
NURSE NOTES: Dr. Devine updated at the patient bedside, notified the ventilator setting remain at AC 15, TV: 600, FIo2 of 70% and peep of 7. dr. devine will review patient chart and place orders accordingly.
--- NOTE | 2020-07-02 15:03 | Diagnostic Imaging Report ---
Indication: Shortness of breath Technique: One view of the chest Comparison: 07/01/2020 Findings: Stable tube positions. Bilateral infiltrates are unchanged Impression: Unchanged, over one day, findings as above.
--- NOTE | 2020-07-02 19:05 | NUR ---
NURSE NOTES: New bag of fentanyl hung at 150mcg./hr at rate of 15ml/hr to achieve rass of -2, she remains sedated and comfortable.
--- NOTE | 2020-07-02 19:30 | NUR ---
NURSE HAND-OFF REPORT: Latest Vital Signs: Temperature 97.7 , Pulse 91 , B/P 95 /59 , Respiratory Rate 15 , O2 SAT 100 , Endotracheal Tube, O2 Flow Rate . Vital Sign Comment: EKG Rhythm: Sinus Rhythm Rhythm change?: N Notified?: Babs EDWARDS MD Response: Latest Meyers Fall Score: 70 Fall Risk: High Risk Safety Measures: Call light Within Reach, Bed Alarm Zone 1, Side Rails Side Rails x2, Bed position Low and Locked. Fall Precautions: Yellow Socks Report given to RAKEL Robles.
[2020-07-02] MEDS: Dyna-Hex 2% Top Sol 2oz TOPIC SCH (19:40)
--- NOTE | 2020-07-02 19:49 | NUR ---
NURSE NOTES: LE: GOT TELEPHONE CONSENT FROM PT'S FAMILY ( ALVARO COELHO ) FOR TRACHEOSTOMY THAT VERIFIED 2 NURSES.
--- NOTE | 2020-07-02 19:55 | NUR ---
NURSE NOTES: PATIENT SEDATED, RASS SCORE -2 STATUS, ON ETT TO VENT AC 15/TV600/FIO2 70%/PEEP 7, O2 SATURATION 100% NOTED, HR 90/MIN SR, NGT INTACT AND PATENT, ONGOING VITAL AF 1.2 AT 60ML/HR, RESIDUE 20ML NOTED, KEPT HOB 30 DEGREES AND ASPIRATION PRECAUTION, ABDOMEN SOFT, NON TENDER, RECTAL TUBE STATUS, DARK GREENISH STOOL OUTED, F/C INTACT AND PATENT, ANNA COLOR URINE OUTED, PICC LINE TO RIGHT UPPER ARM INTACT AND PATENT, ONGOING VERSED 10MG AND FENTANYL 150 MCG/HR VIA RT. PICC LINE, IV FLUID D5W 1/2 NS AT 50 ML VIA PICC LINE, ON P200 BED, MADE LOWER BED POSITION, ON BED ALARM AND LOCKED, WILL CONTINUE TO MONITOR.
[2020-07-02] MEDS: Miralax 17gm pkt GT SCH (20:32)
--- NOTE | 2020-07-02 22:05 | NUR ---
NURSE NOTES: REPOSITIONED, KEPT RASS SCORE -2, NO PAIN OR SOB NOTED.
[2020-07-03] VITALS (29 sets, daily range): BP systolic 91–121; BP diastolic 54–88
--- NOTE | 2020-07-03 00:05 | NUR ---
NURSE NOTES: HOLD FEEDING DUE TO PROCEDURE, VSS, WILL CONTINUE PLAN OF CARE.
[2020-07-03] MEDS: Midazolam HCl 50mg/10ml vial 100 MG in NS 180 ML IV PRN ×3 (00:25→20:17)
[2020-07-03] MEDS: D5 1/2NS 1,000 ML IV SCH ×2 (00:26→20:00)
--- NOTE | 2020-07-03 02:05 | NUR ---
NURSE NOTES: PATIENT SEDATED WITH FENTANYL 150MCG/HR AND VERSED 10MG/HR, RASS SCORE -2, WILL CONTINUE PLAN OF CARE.
--- NOTE | 2020-07-03 04:10 | NUR ---
NURSE NOTES: MORNING CARE AND ORAL CARE WAS DONE, RECTAL TUBE INTACT AND PATENT.
[2020-07-03] MEDS: NovoLOG Insulin Flexpen SUBQ SCH ×3 (05:38→18:00)
[2020-07-03] MEDS: Midodrine 10mg tab GT SCH ×3 (05:38→22:07)
--- NOTE | 2020-07-03 06:16 | NUR ---
NURSE NOTES: KEPT NPO POST MN, NO ACUTE DISTRESS NOTED AT THIS SHIFT.
--- NOTE | 2020-07-03 06:28 | General Progress Note ---
Subjective ROS Limited/Unobtainable: Yes Allergies: Coded Allergies: No Known Allergies (Unverified , 05/28/20) Subjective events noted interval notes reviewed glucose values are stable Item Value Date Time Bedside Blood Glucose 103 mg/dl 07/03/20 0539 Bedside Blood Glucose 132 mg/dl H 07/02/20 2333 Bedside Blood Glucose 123 mg/dl H 07/02/20 1800 Bedside Blood Glucose 176 mg/dl H 07/02/20 1304 Bedside Blood Glucose 124 mg/dl H 07/02/20 0600 Bedside Blood Glucose 147 mg/dl H 07/02/20 0051 Objective Last 24 Hour Vital Signs Date Time Temp Pulse Resp B/P (MAP) Pulse Ox O2 Delivery O2 Flow Rate FiO2 07/03/20 06:00 100.3 98 17 95/60 (72) 97 07/03/20 06:00 17 Mechanical Ventilator 90 07/03/20 06:00 17 95/60 Mechanical Ventilator 90 07/03/20 05:00 96 18 94/56 (69) 97 07/03/20 05:00 18 Mechanical Ventilator 100 07/03/20 05:00 18 94/56 Mechanical Ventilator 70 07/03/20 04:00 97.6 98 17 92/54 (67) 94 07/03/20 04:00 70 07/03/20 04:00 17 Mechanical Ventilator 70 07/03/20 04:00 17 92/54 Mechanical Ventilator 70 07/03/20 04:00 Mechanical Ventilator Mechanical Ventilator 07/03/20 04:00 98 07/03/20 03:45 96 17 70 07/03/20 03:00 16 Mechanical Ventilator 90 07/03/20 03:00 16 102/63 Mechanical Ventilator 70 07/03/20 03:00 98 16 102/63 (76) 100 07/03/20 02:00 95 15 104/63 (77) 100 07/03/20 02:00 15 Mechanical Ventilator 70 07/03/20 02:00 15 104/63 Mechanical Ventilator 70 07/03/20 01:00 93 15 99/62 (74) 100 07/03/20 01:00 15 Mechanical Ventilator 70 07/03/20 01:00 15 99/62 Mechanical Ventilator 70 07/03/20 00:25 15 Mechanical Ventilator 70 07/03/20 00:00 Mechanical Ventilator Mechanical Ventilator 07/03/20 00:00 33 Mechanical Ventilator 70 07/03/20 00:00 33 138/68 Mechanical Ventilator 70 07/03/20 00:00 97.8 91 15 102/58 (73) 100 07/03/20 00:00 91 07/03/20 00:00 70 07/02/20 23:15 93 15 70 07/02/20 23:00 95 20 106/69 (81) 100 07/02/20 23:00 32 Mechanical Ventilator 70 07/02/20 23:00 32 120/62 Mechanical Ventilator 70 07/02/20 22:00 95 17 106/62 (77) 99 07/02/20 22:00 32 Mechanical Ventilator 70 07/02/20 22:00 32 121/66 Mechanical Ventilator 70 07/02/20 21:00 18 Mechanical Ventilator 70 07/02/20 21:00 18 91/58 Mechanical Ventilator 70 07/02/20 21:00 91 18 91/58 (69) 100 07/02/20 20:30 94 19 97/54 (68) 100 07/02/20 20:00 Mechanical Ventilator Mechanical Ventilator 07/02/20 20:00 97.6 94 18 104/61 (75) 100 07/02/20 20:00 18 Mechanical Ventilator 70 07/02/20 20:00 18 104/61 Mechanical Ventilator 70 07/02/20 20:00 70 07/02/20 19:36 92 07/02/20 19:35 93 17 70 07/02/20 19:00 91 15 95/59 (71) 100 07/02/20 18:59 15 90/55 Endotracheal Tube 70 07/02/20 18:30 90 16 94/58 (70) 100 07/02/20 18:00 90 16 97/66 (76) 100 07/02/20 18:00 17 Mechanical Ventilator 70 07/02/20 18:00 17 97/66 Mechanical Ventilator 70 07/02/20 17:30 90 15 101/55 (70) 100 07/02/20 17:00 16 Mechanical Ventilator 70 07/02/20 17:00 16 98/50 Mechanical Ventilator 70 07/02/20 17:00 90 15 98/50 (66) 100 07/02/20 16:30 90 16 100/49 (66) 100 07/02/20 16:00 Mechanical Ventilator Mechanical Ventilator 07/02/20 16:00 70 07/02/20 16:00 97.7 90 16 91/60 (70) 100 07/02/20 16:00 17 Mechanical Ventilator 70 07/02/20 16:00 17 91/60 Mechanical Ventilator 70 07/02/20 16:00 91 07/02/20 15:30 92 17 81/44 (56) 100 07/02/20 15:18 90 17 70 07/02/20 15:00 93 16 103/70 (81) 100 07/02/20 15:00 17 Mechanical Ventilator 70 07/02/20 15:00 17 103/70 Mechanical Ventilator 70 07/02/20 14:30 95 17 98/55 (69) 100 07/02/20 14:00 98 17 92/45 (61) 100 07/02/20 13:52 16 Mechanical Ventilator 07/02/20 13:30 98 17 89/47 (61) 99 07/02/20 13:00 98 18 104/50 (68) 99 07/02/20 12:30 103 24 123/76 (92) 90 07/02/20 12:00 97.6 95 22 104/86 (92) 95 07/02/20 12:00 70 07/02/20 12:00 Mechanical Ventilator Mechanical Ventilator 07/02/20 12:00 98 07/02/20 11:30 98 21 117/73 (88) 94 07/02/20 11:05 96 22 70 07/02/20 11:00 101 31 128/78 (95) 88 07/02/20 10:30 92 18 115/69 (84) 94 07/02/20 10:00 92 21 108/70 (83) 94 07/02/20 09:30 89 20 100/64 (76) 97 07/02/20 09:00 90 20 106/63 (77) 99 07/02/20 08:30 93 20 99/67 (78) 97 07/02/20 08:00 97.8 95 20 109/60 (76) 97 07/02/20 08:00 70 07/02/20 08:00 Mechanical Ventilator Mechanical Ventilator 07/02/20 08:00 100 07/02/20 07:30 95 22 100/55 (70) 96 07/02/20 07:24 91 23 70 07/02/20 07:00 94 21 92/67 (75) 94 2/9/21 07:00 21 70 07/02/20 07:00 21 97/63 Mechanical Ventilator 70 07/02/20 06:45 97 20 97 07/02/20 06:30 96 23 07/02/20 06:30 95 21 102/68 (79) 95 Intake and Output 07/02/20 07/03/20 19:00 07:00 Intake Total 1582 ml 1241 ml Output Total 1717 ml 390 ml Balance -135 ml 851 ml Free Water 100 ml IV Total 1002 ml 921 ml Tube Feeding 480 ml 200 ml Other 120 ml Output Urine Total 1697 ml 360 ml Stool Total 20 ml 30 ml Laboratory Tests 07/02/20 08:20: Arterial Blood pH 7.361, Arterial Blood Partial Pressure CO2 77.8*H, Arterial Blood Partial Pressure O2 72.7L, Arterial Blood HCO3 43.1*H, Arterial Blood Oxygen Saturation 93.1L, Arterial Blood Base Excess 15.3*H, Jeremiah Test Positive Height (Feet): 5 Height (Inches): 6.00 Weight (Pounds): 239 Objective Current Medications Medications (Trade) Dose Ordered Sig/Zelda Route PRN Reason Start Time Stop Time Status Last Admin Dose Admin Acetaminophen (Tylenol) 650 mg Q4H PRN NG Temp >100.5 06/29/20 10:15 07/29/20 10:14 07/02/20 00:53 Acetaminophen (Tylenol) 650 mg Q6H PRN NG Mild Pain (Pain Scale 1-3) 06/29/20 10:15 07/29/20 10:14 Chlorhexidine Gluconate (Inna-Hex 2%) 1 applic DAILY@2000 TOPIC 05/30/20 20:00 08/28/20 19:59 07/02/20 19:40 Dextrose (Dextrose 50%) 25 ml Q30M PRN IV Hypoglycemia 06/05/20 10:45 09/03/20 10:44 Dextrose (Dextrose 50%) 50 ml Q30M PRN IV Hypoglycemia 06/05/20 10:45 09/03/20 10:44 Dextrose/Sodium Chloride 1,000 ml @ 50 mls/hr Q20H IV 06/24/20 16:30 07/24/20 16:29 07/03/20 00:26 Docusate Sodium (Colace) 100 mg Q12HR GT 06/07/20 21:00 07/07/20 20:59 2/9/21 20:33 Enoxaparin Sodium (Lovenox) 40 mg DAILY SUBQ 05/30/20 10:00 08/28/20 09:59 07/02/20 10:05 Fentanyl Citrate 250 ml @ 1 mls/hr Q24H IV 07/01/20 09:15 07/03/20 09:14 07/02/20 18:59 Furosemide (Lasix) 40 mg DAILY IV 06/22/20 09:00 07/22/20 08:59 07/02/20 10:04 Insulin Aspart (NovoLOG) EVERY 6 HOURS SUBQ 06/07/20 00:00 09/03/20 11:59 07/02/20 13:04 Midazolam HCl 100 mg/Sodium Chloride 200 ml @ 0 mls/hr Q24H PRN IV sedation 07/01/20 15:45 07/03/20 15:37 07/03/20 00:25 Midodrine (Pro-Amatine) 10 mg Q8HR GT 06/30/20 14:00 09/12/20 13:59 07/02/20 21:46 Pantoprazole (Protonix) 40 mg Q12HR IVP 06/13/20 21:00 07/03/20 08:59 07/02/20 20:32 Polyethylene Glycol (Miralax) 17 gm BEDTIME GT 06/07/20 21:00 07/07/20 20:59 07/02/20 20:32 Vitamin D (Vitamin D) 5,000 unit DAILY GT 06/28/20 09:00 07/28/20 08:59 07/02/20 10:03 Assessment/Plan Problem List: (1) Diabetes mellitus out of control ICD Codes: E11.65 - Type 2 diabetes mellitus with hyperglycemia SNOMED: 58779133, 470979799 (2) Pneumonia due to COVID-19 virus ICD Codes: U07.1 - COVID-19; J12.82 - Pneumonia due to coronavirus disease 2019 SNOMED: 699493204998844074 (3) Respiratory distress ICD Codes: R06.03 - Acute respiratory distress; J12.82 - Pneumonia due to coronavirus disease 2019 SNOMED: 859997503 Status: unchanged Assessment/Plan: no need for basal insulin continue Novolog sliding scale every 6 hours Huber Adame MD Jul 03, 2020 06:28
--- NOTE | 2020-07-03 06:42 | Hematology/Onc Progress Note ---
Assessment/Plan Assessment/Plan # Thrombocytopenia is due to infection/underlying covid19+++ --> ABX ceftriaxone -->zosyn-->off --> on steriods likely cause of initial wbc --> per pulm --> plt 107->156-->192-->205 --> smear reviewed # Anemia due to chronic disease --> hgb goal is >7 --> transfuse prn --> ferritin is >1000 --> hold off on iron --> 10-->9.8->9-->8-->8.2-->9.4-->8.1-->9.9-->8.7-->9.7-->9.5-->8.1 # Elevated ddimer due to covid19++ --> duplex legs is negative --> underlying covid rx # Hypoxia -> due to covid19 # Hypoxemia --> rx same as above # Respiratory failure --> on vent --> per pulm # Pneumonia due to COVID-19 virus --> per pulm rx -> sp remdesivir # Diabetes mellitus out of control --> hgb a1c goal <7 # Poor prognosis # Dvt ppx lovenox sq Appreciate consultation and bowen RN Subjective Allergies: Coded Allergies: No Known Allergies (Unverified , 05/28/20) All Systems: reviewed and negative except above Subjective 06/10 nv, on vent, with ogt, on fentanyl and versed, plt stable 06/11 nv, vent adjusted is on ogt, meds reviewed 06/12 nv, vent, meds noted, labs noted, no bleeding, hgb 10.4 06/13 nv, is on vent, meds reviewed, no bleeding, cbc reviewed 06/14 nv, on vent, tachy, labs reviewed, gross hematuria, febrile overnight, abx 06/17 nv, on vent, labs noted, no major changes, feeling better overnight 06/18 nv, meds reviewed, labs noted, no major events, hgb 8.6 06/19 nv, remains intubated, with fluids, labs reviewed, meds noted 06/20 nv, intubated remains on restraints, meds noted as well, as labs 06/21 nv, remains on vent, on restraints, meds reviewed, labs noted 06/22: covering Dr. Del Cid no acute events 06/23 sedated, on vent, nv, intubated, meds reviewed, versed 06/24 nv, on vent, no night sweats, no bleeding, remains in icu 06/25 nv, on vent, icu, meds noted, no bleeding, comfortable 06/26 nv, on versed, icu, weaning parameters, labs noted 06/27 nv, overnight fighting vent, as per pulm fentanyl on board 06/28 nv, on vent, labs reviewed, as per pulm, meds noted 06/30 nv, icu, labs pending, is on fentanyl, versed, no new changes 07/01 nv, icu, is on vent, labs pending, no new changes per rn 07/02 nv, icu is on vent, labs noted, hgb is stable 07/03 nv, icu, is on vent, potential trrach when stable, cbc reviewed Objective Objective Current Medications Medications (Trade) Dose Ordered Sig/Zelda Route PRN Reason Start Time Stop Time Status Last Admin Dose Admin Acetaminophen (Tylenol) 650 mg Q4H PRN NG Temp >100.5 06/29/20 10:15 07/29/20 10:14 07/02/20 00:53 Acetaminophen (Tylenol) 650 mg Q6H PRN NG Mild Pain (Pain Scale 1-3) 06/29/20 10:15 07/29/20 10:14 Chlorhexidine Gluconate (Inna-Hex 2%) 1 applic DAILY@2000 TOPIC 05/30/20 20:00 08/28/20 19:59 07/02/20 19:40 Dextrose (Dextrose 50%) 25 ml Q30M PRN IV Hypoglycemia 06/05/20 10:45 09/03/20 10:44 Dextrose (Dextrose 50%) 50 ml Q30M PRN IV Hypoglycemia 06/05/20 10:45 09/03/20 10:44 Dextrose/Sodium Chloride 1,000 ml @ 50 mls/hr Q20H IV 06/24/20 16:30 07/24/20 16:29 07/03/20 00:26 Docusate Sodium (Colace) 100 mg Q12HR GT 06/07/20 21:00 07/07/20 20:59 07/02/20 20:33 Enoxaparin Sodium (Lovenox) 40 mg DAILY SUBQ 05/30/20 10:00 08/28/20 09:59 07/02/20 10:05 Fentanyl Citrate 250 ml @ 1 mls/hr Q24H IV 07/01/20 09:15 07/03/20 09:14 07/02/20 18:59 Furosemide (Lasix) 40 mg DAILY IV 06/22/20 09:00 07/22/20 08:59 07/02/20 10:04 Insulin Aspart (NovoLOG) EVERY 6 HOURS SUBQ 06/07/20 00:00 09/03/20 11:59 07/02/20 13:04 Midazolam HCl 100 mg/Sodium Chloride 200 ml @ 0 mls/hr Q24H PRN IV sedation 07/01/20 15:45 07/03/20 15:37 07/03/20 00:25 Midodrine (Pro-Amatine) 10 mg Q8HR GT 06/30/20 14:00 09/12/20 13:59 07/02/20 21:46 Pantoprazole (Protonix) 40 mg Q12HR IVP 06/13/20 21:00 07/03/20 08:59 07/02/20 20:32 Polyethylene Glycol (Miralax) 17 gm BEDTIME GT 06/07/20 21:00 07/07/20 20:59 07/02/20 20:32 Vitamin D (Vitamin D) 5,000 unit DAILY GT 06/28/20 09:00 07/28/20 08:59 07/02/20 10:03 Last 24 Hour Vital Signs Date Time Temp Pulse Resp B/P (MAP) Pulse Ox O2 Delivery O2 Flow Rate FiO2 07/03/20 06:00 100.3 98 17 95/60 (72) 97 07/03/20 06:00 17 Mechanical Ventilator 90 07/03/20 06:00 17 95/60 Mechanical Ventilator 90 07/03/20 05:00 96 18 94/56 (69) 97 07/03/20 05:00 18 Mechanical Ventilator 100 07/03/20 05:00 18 94/56 Mechanical Ventilator 70 07/03/20 04:00 97.6 98 17 92/54 (67) 94 07/03/20 04:00 70 07/03/20 04:00 17 Mechanical Ventilator 70 07/03/20 04:00 17 92/54 Mechanical Ventilator 70 07/03/20 04:00 Mechanical Ventilator Mechanical Ventilator 07/03/20 04:00 98 07/03/20 03:45 96 17 70 07/03/20 03:00 16 Mechanical Ventilator 90 07/03/20 03:00 16 102/63 Mechanical Ventilator 70 07/03/20 03:00 98 16 102/63 (76) 100 07/03/20 02:00 95 15 104/63 (77) 100 07/03/20 02:00 15 Mechanical Ventilator 70 07/03/20 02:00 15 104/63 Mechanical Ventilator 70 07/03/20 01:00 93 15 99/62 (74) 100 07/03/20 01:00 15 Mechanical Ventilator 70 07/03/20 01:00 15 99/62 Mechanical Ventilator 70 07/03/20 00:25 15 Mechanical Ventilator 70 07/03/20 00:00 Mechanical Ventilator Mechanical Ventilator 07/03/20 00:00 33 Mechanical Ventilator 70 07/03/20 00:00 33 138/68 Mechanical Ventilator 70 07/03/20 00:00 97.8 91 15 102/58 (73) 100 07/03/20 00:00 91 07/03/20 00:00 70 07/02/20 23:15 93 15 70 07/02/20 23:00 95 20 106/69 (81) 100 07/02/20 23:00 32 Mechanical Ventilator 70 07/02/20 23:00 32 120/62 Mechanical Ventilator 70 07/02/20 22:00 95 17 106/62 (77) 99 07/02/20 22:00 32 Mechanical Ventilator 70 07/02/20 22:00 32 121/66 Mechanical Ventilator 70 07/02/20 21:00 18 Mechanical Ventilator 70 07/02/20 21:00 18 91/58 Mechanical Ventilator 70 07/02/20 21:00 91 18 91/58 (69) 100 07/02/20 20:30 94 19 97/54 (68) 100 07/02/20 20:00 Mechanical Ventilator Mechanical Ventilator 07/02/20 20:00 97.6 94 18 104/61 (75) 100 07/02/20 20:00 18 Mechanical Ventilator 70 07/02/20 20:00 18 104/61 Mechanical Ventilator 70 07/02/20 20:00 70 07/02/20 19:36 92 07/02/20 19:35 93 17 70 07/02/20 19:00 91 15 95/59 (71) 100 07/02/20 18:59 15 90/55 Endotracheal Tube 70 07/02/20 18:30 90 16 94/58 (70) 100 07/02/20 18:00 90 16 97/66 (76) 100 07/02/20 18:00 17 Mechanical Ventilator 70 07/02/20 18:00 17 97/66 Mechanical Ventilator 70 07/02/20 17:30 90 15 101/55 (70) 100 07/02/20 17:00 16 Mechanical Ventilator 70 07/02/20 17:00 16 98/50 Mechanical Ventilator 70 07/02/20 17:00 90 15 98/50 (66) 100 07/02/20 16:30 90 16 100/49 (66) 100 07/02/20 16:00 Mechanical Ventilator Mechanical Ventilator 07/02/20 16:00 70 07/02/20 16:00 97.7 90 16 91/60 (70) 100 07/02/20 16:00 17 Mechanical Ventilator 70 07/02/20 16:00 17 91/60 Mechanical Ventilator 70 07/02/20 16:00 91 07/02/20 15:30 92 17 81/44 (56) 100 07/02/20 15:18 90 17 70 07/02/20 15:00 93 16 103/70 (81) 100 07/02/20 15:00 17 Mechanical Ventilator 70 07/02/20 15:00 17 103/70 Mechanical Ventilator 70 07/02/20 14:30 95 17 98/55 (69) 100 07/02/20 14:00 98 17 92/45 (61) 100 07/02/20 13:52 16 Mechanical Ventilator 07/02/20 13:30 98 17 89/47 (61) 99 07/02/20 13:00 98 18 104/50 (68) 99 07/02/20 12:30 103 24 123/76 (92) 90 07/02/20 12:00 97.6 95 22 104/86 (92) 95 07/02/20 12:00 70 07/02/20 12:00 Mechanical Ventilator Mechanical Ventilator 07/02/20 12:00 98 07/02/20 11:30 98 21 117/73 (88) 94 07/02/20 11:05 96 22 70 07/02/20 11:00 101 31 128/78 (95) 88 07/02/20 10:30 92 18 115/69 (84) 94 07/02/20 10:00 92 21 108/70 (83) 94 07/02/20 09:30 89 20 100/64 (76) 97 07/02/20 09:00 90 20 106/63 (77) 99 07/02/20 08:30 93 20 99/67 (78) 97 07/02/20 08:00 97.8 95 20 109/60 (76) 97 07/02/20 08:00 70 07/02/20 08:00 Mechanical Ventilator Mechanical Ventilator 07/02/20 08:00 100 07/02/20 07:30 95 22 100/55 (70) 96 07/02/20 07:24 91 23 70 07/02/20 07:00 94 21 92/67 (75) 94 07/02/20 07:00 21 70 07/02/20 07:00 21 97/63 Mechanical Ventilator 70 07/02/20 06:45 97 20 97 07/02/20 06:30 96 23 07/02/20 06:30 95 21 102/68 (79) 95 07/02/20 06:00 20 Mechanical Ventilator 70 07/02/20 06:00 20 100/64 Mechanical Ventilator 70 07/02/20 06:00 94 22 103/63 (76) 95 07/02/20 05:30 97 22 100/67 (78) 92 07/02/20 05:00 23 Mechanical Ventilator 70 07/02/20 05:00 23 102/62 Mechanical Ventilator 70 07/02/20 05:00 98 24 106/64 (78) 94 07/02/20 04:00 70 07/02/20 04:00 Mechanical Ventilator Mechanical Ventilator 07/02/20 04:00 26 Mechanical Ventilator 70 07/02/20 04:00 26 96/59 Mechanical Ventilator 70 07/02/20 04:00 98.8 101 24 100/57 (71) 92 07/02/20 03:30 104 27 106/63 (77) 90 07/02/20 03:28 99 20 70 07/02/20 03:08 100 07/02/20 03:00 104 28 115/69 (84) 91 07/02/20 03:00 25 Mechanical Ventilator 70 07/02/20 03:00 25 108/60 Mechanical Ventilator 70 07/02/20 02:19 20 100/58 Mechanical Ventilator 70 07/02/20 02:00 103 21 98/62 (74) 93 07/02/20 02:00 22 Mechanical Ventilator 70 07/02/20 02:00 22 100/58 Mechanical Ventilator 70 07/02/20 01:52 24 Mechanical Ventilator 70 07/02/20 01:48 23 Mechanical Ventilator 70 07/02/20 01:30 100.5 102 23 90/65 (73) 90 07/02/20 01:23 99.9 07/02/20 01:00 105 22 94/60 (71) 100 07/02/20 01:00 21 Mechanical Ventilator 70 07/02/20 01:00 21 95/76 Mechanical Ventilator 70 07/02/20 00:00 Mechanical Ventilator Mechanical Ventilator 07/02/20 00:00 98.7 109 24 102/59 (73) 98 07/02/20 00:00 17 Mechanical Ventilator 70 07/02/20 00:00 17 102/59 Mechanical Ventilator 70 07/01/20 23:30 114 22 95/59 (71) 100 07/01/20 23:29 111 25 70 07/01/20 23:03 118 07/01/20 23:00 118 23 107/64 (78) 100 07/01/20 23:00 26 Mechanical Ventilator 70 07/01/20 23:00 26 109/69 Mechanical Ventilator 70 07/01/20 22:30 120 25 97/61 (73) 100 07/01/20 22:00 120 23 110/62 (78) 100 07/01/20 22:00 26 Mechanical Ventilator 70 07/01/20 22:00 26 100/63 Mechanical Ventilator 70 07/01/20 21:00 121 28 114/63 (80) 82 07/01/20 21:00 26 Mechanical Ventilator 70 07/01/20 21:00 26 98/63 Mechanical Ventilator 70 07/01/20 20:30 109 23 94/52 (66) 99 07/01/20 20:00 Mechanical Ventilator Mechanical Ventilator 07/01/20 20:00 70 07/01/20 20:00 26 Mechanical Ventilator 70 07/01/20 20:00 26 97/62 Mechanical Ventilator 70 07/01/20 20:00 98.4 108 16 100/64 (76) 100 07/01/20 19:34 107 07/01/20 19:23 108 20 70 07/01/20 19:00 26 Mechanical Ventilator 70 07/01/20 19:00 26 100/60 Mechanical Ventilator 70 07/01/20 19:00 107 26 100/60 (73) 89 07/01/20 18:30 103 24 110/69 (83) 95 07/01/20 18:00 106 26 120/72 (88) 87 07/01/20 18:00 26 Mechanical Ventilator 70 07/01/20 18:00 26 120/72 Mechanical Ventilator 70 07/01/20 17:30 105 24 105/51 (69) 85 07/01/20 17:00 23 Mechanical Ventilator 70 07/01/20 17:00 23 98/59 Mechanical Ventilator 70 07/01/20 17:00 101 23 98/59 (72) 88 07/01/20 16:30 97 22 92/54 (67) 92 07/01/20 16:00 101 07/01/20 16:00 98.6 100 24 101/58 (72) 94 07/01/20 16:00 Mechanical Ventilator Mechanical Ventilator 07/01/20 16:00 70 07/01/20 16:00 21 Mechanical Ventilator 70 07/01/20 16:00 21 101/58 Mechanical Ventilator 70 07/01/20 15:48 22 Mechanical Ventilator 70 07/01/20 15:30 99 19 99/59 (72) 96 07/01/20 15:13 101 20 70 07/01/20 15:00 103 21 101/61 (74) 96 07/01/20 15:00 20 101/61 Mechanical Ventilator 70 07/01/20 15:00 20 Mechanical Ventilator 70 07/01/20 14:30 103 19 100/57 (71) 97 07/01/20 14:00 108 20 98/56 (70) 97 07/01/20 14:00 21 98/56 Mechanical Ventilator 70 07/01/20 14:00 21 Mechanical Ventilator 70 07/01/20 13:30 109 23 97/59 (72) 98 07/01/20 13:00 24 94/58 Mechanical Ventilator 70 07/01/20 13:00 24 Mechanical Ventilator 70 07/01/20 13:00 112 23 94/58 (70) 97 07/01/20 12:30 113 24 100/62 (75) 96 07/01/20 12:00 111 07/01/20 12:00 Mechanical Ventilator Mechanical Ventilator 07/01/20 12:00 70 07/01/20 12:00 22 104/59 Mechanical Ventilator 70 07/01/20 12:00 22 Mechanical Ventilator 70 07/01/20 12:00 99.9 112 23 104/59 (74) 96 07/01/20 11:30 108 22 110/62 (78) 95 07/01/20 11:00 106 23 96/56 (69) 96 07/01/20 11:00 23 96/56 Mechanical Ventilator 70 07/01/20 11:00 23 Mechanical Ventilator 70 07/01/20 10:48 105 19 70 07/01/20 10:30 107 22 102/61 (75) 97 07/01/20 10:00 23 108/63 Mechanical Ventilator 70 07/01/20 10:00 23 Mechanical Ventilator 70 07/01/20 10:00 106 22 108/63 (78) 96 07/01/20 09:30 25 91/53 Mechanical Ventilator 70 07/01/20 09:30 102 24 86/58 (67) 100 07/01/20 09:00 103 22 99/55 (70) 99 07/01/20 09:00 23 Mechanical Ventilator 70 07/01/20 08:43 105 21 70 07/01/20 08:30 109 23 112/69 (83) 89 07/01/20 08:00 70 07/01/20 08:00 22 Mechanical Ventilator 70 07/01/20 08:00 97.7 101 22 111/57 (75) 98 07/01/20 08:00 Mechanical Ventilator Mechanical Ventilator 07/01/20 08:00 99 07/01/20 07:30 103 23 110/64 (79) 98 07/01/20 07:20 104 19 70 07/01/20 07:00 22 Mechanical Ventilator 70 07/01/20 07:00 103 22 107/58 (74) 96 Intake and Output 07/02/20 07/03/20 19:00 07:00 Intake Total 1582 ml 1241 ml Output Total 1717 ml 390 ml Balance -135 ml 851 ml Free Water 100 ml IV Total 1002 ml 921 ml Tube Feeding 480 ml 200 ml Other 120 ml Output Urine Total 1697 ml 360 ml Stool Total 20 ml 30 ml Labs Test 06/30/20 08:09 06/30/20 17:09 07/01/20 04:55 07/01/20 05:15 Arterial Blood pH 7.320 (7.350-7.450) Arterial Blood Partial Pressure CO2 80.7 mmHg (35.0-45.0) Arterial Blood Partial Pressure O2 54.4 mmHg (75.0-100.0) Arterial Blood HCO3 40.6 mmol/L (22.0-26.0) Arterial Blood Oxygen Saturation 84.8 % (95-100) Arterial Blood Base Excess 12.2 (-2-2) Jeremiah Test Positive POC Whole Blood Glucose 125 MG/DL (74-106) 145 MG/DL (74-106) White Blood Count 6.8 K/UL (4.8-10.8) Red Blood Count 3.22 M/UL (4.20-5.40) Hemoglobin 9.3 G/DL (12.0-16.0) Hematocrit 30.1 % (37.0-47.0) Mean Corpuscular Volume 93 FL (80-99) Mean Corpuscular Hemoglobin 28.8 PG (27.0-31.0) Mean Corpuscular Hemoglobin Concent 30.8 G/DL (32.0-36.0) Red Cell Distribution Width 16.6 % (11.6-14.8) Platelet Count 218 K/UL (150-450) Mean Platelet Volume 8.6 FL (6.5-10.1) Neutrophils (%) (Auto) 67.2 % (45.0-75.0) Lymphocytes (%) (Auto) 21.1 % (20.0-45.0) Monocytes (%) (Auto) 5.4 % (1.0-10.0) Eosinophils (%) (Auto) 5.5 % (0.0-3.0) Basophils (%) (Auto) 0.9 % (0.0-2.0) Prothrombin Time 12.0 SEC (9.30-11.50) Prothromb Time International Ratio 1.1 (0.9-1.1) Activated Partial Thromboplast Time 28 SEC (23-33) Sodium Level 140 MMOL/L (136-145) Potassium Level 3.4 MMOL/L (3.5-5.1) Chloride Level 98 MMOL/L (98-107) Carbon Dioxide Level 41 MMOL/L (21-32) Anion Gap 1 mmol/L (5-15) Blood Urea Nitrogen 7 mg/dL (7-18) Creatinine 0.4 MG/DL (0.55-1.30) Estimat Glomerular Filtration Rate > 60 mL/min (>60) Glucose Level 120 MG/DL (74-106) Calcium Level 9.0 MG/DL (8.5-10.1) Phosphorus Level 3.1 MG/DL (2.5-4.9) Magnesium Level 2.0 MG/DL (1.8-2.4) Total Bilirubin 1.5 MG/DL (0.2-1.0) Direct Bilirubin 0.4 MG/DL (0.0-0.3) Aspartate Amino Transf (AST/SGOT) 33 U/L (15-37) Alanine Aminotransferase (ALT/SGPT) 23 U/L (12-78) Alkaline Phosphatase 86 U/L (46-116) C-Reactive Protein, Quantitative 7.8 mg/dL (0.00-0.90) Pro-B-Type Natriuretic Peptide 913 pg/mL (0-125) Total Protein 6.6 G/DL (6.4-8.2) Albumin 2.3 G/DL (3.4-5.0) Test 07/01/20 09:55 07/02/20 04:16 07/02/20 08:20 07/03/20 03:30 Arterial Blood pH 7.373 (7.350-7.450) 7.361 (7.350-7.450) Arterial Blood Partial Pressure CO2 78.9 mmHg (35.0-45.0) 77.8 mmHg (35.0-45.0) Arterial Blood Partial Pressure O2 71.0 mmHg (75.0-100.0) 72.7 mmHg (75.0-100.0) Arterial Blood HCO3 44.9 mmol/L (22.0-26.0) 43.1 mmol/L (22.0-26.0) Arterial Blood Oxygen Saturation 93.5 % (95-100) 93.1 % (95-100) Arterial Blood Base Excess 17.0 (-2-2) 15.3 (-2-2) Jeremiah Test Positive Positive White Blood Count 7.4 K/UL (4.8-10.8) Red Blood Count 2.72 M/UL (4.20-5.40) Hemoglobin 8.1 G/DL (12.0-16.0) Hematocrit 25.3 % (37.0-47.0) Mean Corpuscular Volume 93 FL (80-99) Mean Corpuscular Hemoglobin 29.7 PG (27.0-31.0) Mean Corpuscular Hemoglobin Concent 31.9 G/DL (32.0-36.0) Red Cell Distribution Width 18.5 % (11.6-14.8) Platelet Count 214 K/UL (150-450) Mean Platelet Volume 7.7 FL (6.5-10.1) Neutrophils (%) (Auto) 68.4 % (45.0-75.0) Lymphocytes (%) (Auto) 20.9 % (20.0-45.0) Monocytes (%) (Auto) 6.0 % (1.0-10.0) Eosinophils (%) (Auto) 3.6 % (0.0-3.0) Basophils (%) (Auto) 1.1 % (0.0-2.0) Prothrombin Time 12.3 SEC (9.30-11.50) Prothromb Time International Ratio 1.1 (0.9-1.1) Activated Partial Thromboplast Time 28 SEC (23-33) Sodium Level 140 MMOL/L (136-145) Potassium Level 3.4 MMOL/L (3.5-5.1) Chloride Level 98 MMOL/L (98-107) Carbon Dioxide Level 42 MMOL/L (21-32) Anion Gap 0 mmol/L (5-15) Blood Urea Nitrogen 8 mg/dL (7-18) Creatinine 0.5 MG/DL (0.55-1.30) Estimat Glomerular Filtration Rate > 60 mL/min (>60) Glucose Level 124 MG/DL (74-106) Uric Acid 1.8 MG/DL (2.6-7.2) Calcium Level 9.0 MG/DL (8.5-10.1) Phosphorus Level 3.2 MG/DL (2.5-4.9) Magnesium Level 1.7 MG/DL (1.8-2.4) Total Bilirubin 1.4 MG/DL (0.2-1.0) Direct Bilirubin 0.3 MG/DL (0.0-0.3) Aspartate Amino Transf (AST/SGOT) 37 U/L (15-37) Alanine Aminotransferase (ALT/SGPT) 23 U/L (12-78) Alkaline Phosphatase 82 U/L (46-116) Total Protein 7.0 G/DL (6.4-8.2) Albumin 2.4 G/DL (3.4-5.0) Test 07/03/20 06:03 Height (Feet): 5 Height (Inches): 6.00 Weight (Pounds): 239 Objective GeNL: nv Pulm: vent++ CV: rrr Abd: soft, nt, nd Ext: no cce Myron Condon MD Jul 03, 2020 06:42
[2020-07-03 07:02] LABS: EOSINOPHILS % (AUTO) 5.5 % (0.0-3.0); HEMATOCRIT 27.1 % (37.0-47.0); HEMOGLOBIN 8.2 G/DL (12.0-16.0); LYMPHOCYTES % (AUTO) 26.9 % (20.0-45.0); MEAN CORPUSCULAR VOLUME 95 FL (80-99); NEUTROPHILS % (AUTO) 58.6 % (45.0-75.0); PLATELET COUNT 212 K/UL (150-450); RED BLOOD COUNT 2.86 M/UL (4.20-5.40); RED CELL DISTRIBUTION WIDTH 18.2 % (11.6-14.8); WHITE BLOOD COUNT 5.2 K/UL (4.8-10.8)
--- NOTE | 2020-07-03 07:14 | NUR ---
NURSE HAND-OFF REPORT: Latest Vital Signs: Temperature 99.6 , Pulse 92 , B/P 94 /58 , Respiratory Rate 15 , O2 SAT 98 , Mechanical Ventilator, O2 Flow Rate . Vital Sign Comment: EKG Rhythm: Sinus Rhythm Rhythm change?: Jesus TOLLIVER Notified?: Babs EDWARDS MD Response: Latest Meyers Fall Score: 70 Fall Risk: High Risk Safety Measures: Call light Within Reach, Bed Alarm Zone 1, Side Rails Side Rails x2, Bed position Low and Locked. Fall Precautions: Yellow Socks Report given to RAKEL GREY.
--- NOTE | 2020-07-03 07:30 | NUR ---
Received pt from previous RN. Pt remains in bed sedated and intubated. VSS at this time. Pt with marrero and rectal tube. Full assessment done. Bed in lowest position. Siderail x2. Will continue monitor.
[2020-07-03 07:58] LABS: ALANINE AMINOTRANSFERASE 23 U/L (12-78); ALBUMIN 2.4 G/DL (3.4-5.0); ALBUMIN/GLOBULIN RATIO 0.5 (1.0-2.7); ALKALINE PHOSPHATASE 78 U/L (46-116); ASPARTATE AMINO TRANSFERASE 32 U/L (15-37); BILIRUBIN,TOTAL 1.5 MG/DL (0.2-1.0); BLOOD UREA NITROGEN 10 mg/dL (7-18); CALCIUM 9.2 MG/DL (8.5-10.1); CHLORIDE 99 MMOL/L (98-107); CREATININE 0.5 MG/DL (0.55-1.30); POTASSIUM 3.3 MMOL/L (3.5-5.1); SODIUM 142 MMOL/L (136-145)
[2020-07-03 08:01] LABS: PHOSPHORUS 3.5 MG/DL (2.5-4.9)
[2020-07-03 08:04] LABS: CARBON DIOXIDE 43 MMOL/L (21-32)
[2020-07-03 08:05] LABS: BILIRUBIN,DIRECT 0.3 MG/DL (0.0-0.3)
--- NOTE | 2020-07-03 09:12 | General Progress Note ---
Subjective Constitutional: Reports: weakness Allergies: Coded Allergies: No Known Allergies (Unverified , 05/28/20) All Systems: reviewed and negative except above Subjective intubated sedated ng in icu Objective Last 24 Hour Vital Signs Date Time Temp Pulse Resp B/P (MAP) Pulse Ox O2 Delivery O2 Flow Rate FiO2 07/03/20 08:00 70 07/03/20 08:00 95 18 103/62 (76) 99 07/03/20 08:00 94 07/03/20 07:24 91 15 70 07/03/20 07:00 99.6 92 15 94/58 (70) 98 07/03/20 07:00 15 Mechanical Ventilator 70 07/03/20 07:00 15 94/58 Mechanical Ventilator 70 07/03/20 06:30 92 15 07/03/20 06:00 100.3 98 17 95/60 (72) 97 07/03/20 06:00 17 Mechanical Ventilator 90 07/03/20 06:00 17 95/60 Mechanical Ventilator 90 07/03/20 05:00 96 18 94/56 (69) 97 07/03/20 05:00 18 Mechanical Ventilator 100 07/03/20 05:00 18 94/56 Mechanical Ventilator 70 07/03/20 04:00 97.6 98 17 92/54 (67) 94 07/03/20 04:00 70 07/03/20 04:00 17 Mechanical Ventilator 70 07/03/20 04:00 17 92/54 Mechanical Ventilator 70 07/03/20 04:00 Mechanical Ventilator Mechanical Ventilator 07/03/20 04:00 98 07/03/20 03:45 96 17 70 07/03/20 03:00 16 Mechanical Ventilator 90 07/03/20 03:00 16 102/63 Mechanical Ventilator 70 07/03/20 03:00 98 16 102/63 (76) 100 07/03/20 02:00 95 15 104/63 (77) 100 07/03/20 02:00 15 Mechanical Ventilator 70 07/03/20 02:00 15 104/63 Mechanical Ventilator 70 07/03/20 01:00 93 15 99/62 (74) 100 07/03/20 01:00 15 Mechanical Ventilator 70 07/03/20 01:00 15 99/62 Mechanical Ventilator 70 07/03/20 00:25 15 Mechanical Ventilator 70 07/03/20 00:00 Mechanical Ventilator Mechanical Ventilator 07/03/20 00:00 33 Mechanical Ventilator 70 07/03/20 00:00 33 138/68 Mechanical Ventilator 70 07/03/20 00:00 97.8 91 15 102/58 (73) 100 07/03/20 00:00 91 07/03/20 00:00 70 07/02/20 23:15 93 15 70 07/02/20 23:00 95 20 106/69 (81) 100 07/02/20 23:00 32 Mechanical Ventilator 70 07/02/20 23:00 32 120/62 Mechanical Ventilator 70 07/02/20 22:00 95 17 106/62 (77) 99 07/02/20 22:00 32 Mechanical Ventilator 70 07/02/20 22:00 32 121/66 Mechanical Ventilator 70 07/02/20 21:00 18 Mechanical Ventilator 70 07/02/20 21:00 18 91/58 Mechanical Ventilator 70 07/02/20 21:00 91 18 91/58 (69) 100 07/02/20 20:30 94 19 97/54 (68) 100 07/02/20 20:00 Mechanical Ventilator Mechanical Ventilator 07/02/20 20:00 97.6 94 18 104/61 (75) 100 07/02/20 20:00 18 Mechanical Ventilator 70 07/02/20 20:00 18 104/61 Mechanical Ventilator 70 07/02/20 20:00 70 07/02/20 19:36 92 07/02/20 19:35 93 17 70 07/02/20 19:00 91 15 95/59 (71) 100 07/02/20 18:59 15 90/55 Endotracheal Tube 70 07/02/20 18:30 90 16 94/58 (70) 100 07/02/20 18:00 90 16 97/66 (76) 100 07/02/20 18:00 17 Mechanical Ventilator 70 07/02/20 18:00 17 97/66 Mechanical Ventilator 70 07/02/20 17:30 90 15 101/55 (70) 100 07/02/20 17:00 16 Mechanical Ventilator 70 07/02/20 17:00 16 98/50 Mechanical Ventilator 70 07/02/20 17:00 90 15 98/50 (66) 100 07/02/20 16:30 90 16 100/49 (66) 100 07/02/20 16:00 Mechanical Ventilator Mechanical Ventilator 07/02/20 16:00 70 07/02/20 16:00 97.7 90 16 91/60 (70) 100 07/02/20 16:00 17 Mechanical Ventilator 70 07/02/20 16:00 17 91/60 Mechanical Ventilator 70 07/02/20 16:00 91 07/02/20 15:30 92 17 81/44 (56) 100 07/02/20 15:18 90 17 70 07/02/20 15:00 93 16 103/70 (81) 100 07/02/20 15:00 17 Mechanical Ventilator 70 07/02/20 15:00 17 103/70 Mechanical Ventilator 70 07/02/20 14:30 95 17 98/55 (69) 100 07/02/20 14:00 98 17 92/45 (61) 100 07/02/20 13:52 16 Mechanical Ventilator 07/02/20 13:30 98 17 89/47 (61) 99 07/02/20 13:00 98 18 104/50 (68) 99 07/02/20 12:30 103 24 123/76 (92) 90 07/02/20 12:00 97.6 95 22 104/86 (92) 95 07/02/20 12:00 70 07/02/20 12:00 Mechanical Ventilator Mechanical Ventilator 07/02/20 12:00 98 07/02/20 11:30 98 21 117/73 (88) 94 07/02/20 11:05 96 22 70 07/02/20 11:00 101 31 128/78 (95) 88 07/02/20 10:30 92 18 115/69 (84) 94 07/02/20 10:00 92 21 108/70 (83) 94 07/02/20 09:30 89 20 100/64 (76) 97 Intake and Output 07/02/20 07/03/20 19:00 07:00 Intake Total 1582 ml 1326 ml Output Total 1717 ml 420 ml Balance -135 ml 906 ml Free Water 100 ml IV Total 1002 ml 1006 ml Tube Feeding 480 ml 200 ml Other 120 ml Output Urine Total 1697 ml 390 ml Stool Total 20 ml 30 ml Laboratory Tests 07/03/20 03:30: Stool Occult Blood [Pending] 07/03/20 06:03: White Blood Count 5.2, Red Blood Count 2.86L, Hemoglobin 8.2L, Hematocrit 27.1L, Mean Corpuscular Volume 95, Mean Corpuscular Hemoglobin 28.6, Mean Corpuscular Hemoglobin Concent 30.2L, Red Cell Distribution Width 18.2H, Platelet Count 212, Mean Platelet Volume 7.6, Neutrophils (%) (Auto) 58.6, Lymphocytes (%) (Auto) 26.9, Monocytes (%) (Auto) 8.0, Eosinophils (%) (Auto) 5.5H, Basophils (%) (Auto) 1.0, Sodium Level 142, Potassium Level 3.3L, Chloride Level 99, Carbon Dioxide Level 43*H, Blood Urea Nitrogen 10, Creatinine 0.5L, Estimat Glomerular Filtration Rate > 60, Glucose Level 102, Calcium Level 9.2, Phosphorus Level 3.5, Magnesium Level 2.0, Total Bilirubin 1.5H, Direct Bilirubin 0.3, Aspartate Amino Transf (AST/SGOT) 32, Alanine Aminotransferase (ALT/SGPT) 23, Alkaline Phosphatase 78, C-Reactive Protein, Quantitative 6.1H, Pro-B-Type Natriuretic Peptide 1026H, Total Protein 7.0, Albumin 2.4L, Globulin 4.6, Albumin/Globulin Ratio 0.5L Height (Feet): 5 Height (Inches): 6.00 Weight (Pounds): 239 General Appearance: lethargic EENT: normal ENT inspection Neck: normal alignment Cardiovascular: normal peripheral pulses, normal rate, regular rhythm Respiratory/Chest: chest wall non-tender, lungs clear, normal breath sounds Abdomen: normal bowel sounds, non tender, soft Extremities: normal inspection Edema: 1+ Arm (L), 1+ Arm (R), 1+ Leg (L), 1+ Leg (R), 1+ Pedal (L), 1+ Pedal (R), 1+ Generalized Edema: trace edema Neurologic: motor weakness Skin: normal pigmentation, warm/dry Assessment/Plan Problem List: (1) Hypoxia ICD Codes: R09.02 - Hypoxemia SNOMED: 999187083 (2) Respiratory failure ICD Codes: J96.90 - Respiratory failure, unspecified, unspecified whether with hypoxia or hypercapnia SNOMED: 149608932 (3) Respiratory distress ICD Codes: R06.03 - Acute respiratory distress; J12.82 - Pneumonia due to coronavirus disease 2019 SNOMED: 046427627 (4) Pneumonia due to COVID-19 virus ICD Codes: U07.1 - COVID-19; J12.82 - Pneumonia due to coronavirus disease 2019 SNOMED: 474634669458849853 Status: unchanged Assessment/Plan: vent abx id pulm f/u cbc bmp am Tank Del Cid DO Jul 03, 2020 09:12
[2020-07-03] MEDS: fentaNYL 2500mcg/NS 250ml 250 ML IV SCH ×2 (09:15→11:30)
[2020-07-03] MEDS: Docusate 100mg/10ml Liq GT SCH ×2 (10:02→20:13)
[2020-07-03] MEDS: Enoxaparin 40mg Inj SUBQ SCH (10:03)
--- NOTE | 2020-07-03 10:13 | Nephrology Progress Note ---
Assessment/Plan Problem List: (1) DEVENDRA (acute kidney injury) (2) Morbid obesity (3) Diabetes mellitus out of control (4) Pneumonia due to COVID-19 virus (5) Respiratory failure Assessment Acute renal failure Obstructive uropathy, clogged Lennon Respiratory failure COVID-19 pneumonia Morbid obesity Plan July 03: Intubated. Full code. Labs reviewed. Abnormal electrolytes addressed. Continue per consultants. Overall status unchanged. July 02: Remains intubated. Remains full code. Remains on FiO2 of 70%. Labs reviewed. Abnormal electrolytes addressed. Continue per pulmonary. July 01: Remains on 70% FiO2. Full code. Intubated on ventilator. Retaining CO2. Discussed with RN. Will do ABG today. Albumin bolus given. 1 dose of Diamox given. June 30: Status quo. Labs reviewed. Abnormal electrolytes addressed. Remains full code. Remains on ventilator. Magnesium sulfate 4 gram IVPB given. June 29: Full code. Intubated on ventilator. Labs reviewed. Stable from renal standpoint of view. Continue per consultants. June 28: Remains full code. Remains intubated on ventilator. Labs reviewed. Vitamin D supplement ordered. Continue to monitor renal parameters. Continue per consultants. June 27: Remains full code. Intubated on ventilator. Labs reviewed. Abnormal electrolyte addressed. Continue to monitor renal parameters and electrolytes. Continue per consultants. June 26: Labs reviewed. Remains full code. Remains intubated. Back on NGT feeding. Continue to monitor renal parameters. June 25: Labs reviewed. Renal parameters stable. Remains full code. Due to positional status patient could not be fed via NG tube. Starting TPN? Is being entertained. Continue per consultants. June 24: Labs reviewed. Renal parameters stable. Remains full code. Remains intubated on ventilator. Continue per consultants. June 23: Labs reviewed. Renal parameters stable. Discussed with RN. Abnormal electrolyte addressed. Remains full code. Remains on ventilator. Continue per consultants. June 22: Labs reviewed. Low potassium addressed. Discussed with RAKEL Moran. Patient full code. Remains on ventilator. Continue to monitor renal parameters. June 21. Labs reviewed. Abnormal electrolyte addressed. Full code. Remains on ventilator. Medication list reviewed. Continue per pulmonary management. DC IV fluid, resume Lasix daily, check chest x-ray. June 20: Labs reviewed. Abnormal electrolytes. Patient remains full code. Continue per consultants. Noted and addressed June 19: Labs reviewed. Abnormal electrolytes noted and addressed. Remains intubated on ventilator. Remains full code. June 18: Labs reviewed. Remains intubated on ventilator. Full code. Abnormal electrolyte addressed. Continue as is. June 17: Labs reviewed. Abnormal electrolytes addressed. Patient remains full code and intubated on ventilator. Continue per consultants. Renal parameters are within normal limits. June 16: Labs reviewed. Potassium chloride replaced. Remains full code. Remains intubated on ventilator. Continue per consultants. Continue to monitor renal parameters. June 15: Labs reviewed. Serum creatinine 1. Stable from renal standpoint to view. Continue per consultants. June 14: Labs reviewed. Full code. Serum creatinine of 3.5 down to 1.4. Low potassium addressed. Continue per current treatment plan. Continue to monitor renal parameters. Midodrine started. Albumin bolus given. Previously: DC Lasix drip Increase Protonix dose Monitor renal parameters, electrolytes Per orders Subjective ROS Limited/Unobtainable: Yes Objective Objective Last 24 Hour Vital Signs Date Time Temp Pulse Resp B/P (MAP) Pulse Ox O2 Delivery O2 Flow Rate FiO2 07/03/20 09:53 96 15 70 07/03/20 09:00 94 21 97/66 (76) 98 07/03/20 08:00 70 07/03/20 08:00 95 18 103/62 (76) 99 07/03/20 08:00 94 07/03/20 08:00 98.9 07/03/20 07:24 91 15 70 07/03/20 07:00 99.6 92 15 94/58 (70) 98 07/03/20 07:00 15 Mechanical Ventilator 70 07/03/20 07:00 15 94/58 Mechanical Ventilator 70 07/03/20 06:30 92 15 07/03/20 06:00 100.3 98 17 95/60 (72) 97 07/03/20 06:00 17 Mechanical Ventilator 90 07/03/20 06:00 17 95/60 Mechanical Ventilator 90 07/03/20 05:00 96 18 94/56 (69) 97 07/03/20 05:00 18 Mechanical Ventilator 100 07/03/20 05:00 18 94/56 Mechanical Ventilator 70 07/03/20 04:00 97.6 98 17 92/54 (67) 94 07/03/20 04:00 70 07/03/20 04:00 17 Mechanical Ventilator 70 07/03/20 04:00 17 92/54 Mechanical Ventilator 70 07/03/20 04:00 Mechanical Ventilator Mechanical Ventilator 07/03/20 04:00 98 07/03/20 03:45 96 17 70 07/03/20 03:00 16 Mechanical Ventilator 90 07/03/20 03:00 16 102/63 Mechanical Ventilator 70 07/03/20 03:00 98 16 102/63 (76) 100 07/03/20 02:00 95 15 104/63 (77) 100 07/03/20 02:00 15 Mechanical Ventilator 70 07/03/20 02:00 15 104/63 Mechanical Ventilator 70 07/03/20 01:00 93 15 99/62 (74) 100 07/03/20 01:00 15 Mechanical Ventilator 70 07/03/20 01:00 15 99/62 Mechanical Ventilator 70 07/03/20 00:25 15 Mechanical Ventilator 70 07/03/20 00:00 Mechanical Ventilator Mechanical Ventilator 07/03/20 00:00 33 Mechanical Ventilator 70 07/03/20 00:00 33 138/68 Mechanical Ventilator 70 07/03/20 00:00 97.8 91 15 102/58 (73) 100 07/03/20 00:00 91 07/03/20 00:00 70 07/02/20 23:15 93 15 70 07/02/20 23:00 95 20 106/69 (81) 100 07/02/20 23:00 32 Mechanical Ventilator 70 07/02/20 23:00 32 120/62 Mechanical Ventilator 70 07/02/20 22:00 95 17 106/62 (77) 99 07/02/20 22:00 32 Mechanical Ventilator 70 07/02/20 22:00 32 121/66 Mechanical Ventilator 70 07/02/20 21:00 18 Mechanical Ventilator 70 07/02/20 21:00 18 91/58 Mechanical Ventilator 70 07/02/20 21:00 91 18 91/58 (69) 100 07/02/20 20:30 94 19 97/54 (68) 100 07/02/20 20:00 Mechanical Ventilator Mechanical Ventilator 07/02/20 20:00 97.6 94 18 104/61 (75) 100 07/02/20 20:00 18 Mechanical Ventilator 70 07/02/20 20:00 18 104/61 Mechanical Ventilator 70 07/02/20 20:00 70 07/02/20 19:36 92 07/02/20 19:35 93 17 70 07/02/20 19:00 91 15 95/59 (71) 100 07/02/20 18:59 15 90/55 Endotracheal Tube 70 07/02/20 18:30 90 16 94/58 (70) 100 07/02/20 18:00 90 16 97/66 (76) 100 07/02/20 18:00 17 Mechanical Ventilator 70 07/02/20 18:00 17 97/66 Mechanical Ventilator 70 07/02/20 17:30 90 15 101/55 (70) 100 07/02/20 17:00 16 Mechanical Ventilator 70 07/02/20 17:00 16 98/50 Mechanical Ventilator 70 07/02/20 17:00 90 15 98/50 (66) 100 07/02/20 16:30 90 16 100/49 (66) 100 07/02/20 16:00 Mechanical Ventilator Mechanical Ventilator 07/02/20 16:00 70 07/02/20 16:00 97.7 90 16 91/60 (70) 100 07/02/20 16:00 17 Mechanical Ventilator 70 07/02/20 16:00 17 91/60 Mechanical Ventilator 70 07/02/20 16:00 91 07/02/20 15:30 92 17 81/44 (56) 100 07/02/20 15:18 90 17 70 07/02/20 15:00 93 16 103/70 (81) 100 07/02/20 15:00 17 Mechanical Ventilator 70 07/02/20 15:00 17 103/70 Mechanical Ventilator 70 07/02/20 14:30 95 17 98/55 (69) 100 07/02/20 14:00 98 17 92/45 (61) 100 07/02/20 13:52 16 Mechanical Ventilator 07/02/20 13:30 98 17 89/47 (61) 99 07/02/20 13:00 98 18 104/50 (68) 99 07/02/20 12:30 103 24 123/76 (92) 90 07/02/20 12:00 97.6 95 22 104/86 (92) 95 07/02/20 12:00 70 07/02/20 12:00 Mechanical Ventilator Mechanical Ventilator 07/02/20 12:00 98 07/02/20 11:30 98 21 117/73 (88) 94 07/02/20 11:05 96 22 70 07/02/20 11:00 101 31 128/78 (95) 88 07/02/20 10:30 92 18 115/69 (84) 94 Intake and Output 07/02/20 07/03/20 19:00 07:00 Intake Total 1582 ml 1326 ml Output Total 1717 ml 420 ml Balance -135 ml 906 ml Free Water 100 ml IV Total 1002 ml 1006 ml Tube Feeding 480 ml 200 ml Other 120 ml Output Urine Total 1697 ml 390 ml Stool Total 20 ml 30 ml Current Medications Medications (Trade) Dose Ordered Sig/Zelda Route PRN Reason Start Time Stop Time Status Last Admin Dose Admin Acetaminophen (Tylenol) 650 mg Q4H PRN NG Temp >100.5 06/29/20 10:15 07/29/20 10:14 07/02/20 00:53 Acetaminophen (Tylenol) 650 mg Q6H PRN NG Mild Pain (Pain Scale 1-3) 06/29/20 10:15 07/29/20 10:14 Chlorhexidine Gluconate (Inna-Hex 2%) 1 applic DAILY@2000 TOPIC 05/30/20 20:00 08/28/20 19:59 07/02/20 19:40 Dextrose (Dextrose 50%) 25 ml Q30M PRN IV Hypoglycemia 06/05/20 10:45 09/03/20 10:44 Dextrose (Dextrose 50%) 50 ml Q30M PRN IV Hypoglycemia 06/05/20 10:45 09/03/20 10:44 Dextrose/Sodium Chloride 1,000 ml @ 50 mls/hr Q20H IV 06/24/20 16:30 07/24/20 16:29 07/03/20 00:26 Docusate Sodium (Colace) 100 mg Q12HR GT 06/07/20 21:00 07/07/20 20:59 07/03/20 10:02 Enoxaparin Sodium (Lovenox) 40 mg DAILY SUBQ 05/30/20 10:00 08/28/20 09:59 07/03/20 10:03 Fentanyl Citrate 250 ml @ 1 mls/hr Q24H IV 07/03/20 11:00 07/05/20 10:59 Fentanyl Citrate 250 ml @ 1 mls/hr Q24H IV 07/01/20 09:15 07/03/20 10:59 07/02/20 18:59 Furosemide (Lasix) 40 mg DAILY IV 06/22/20 09:00 07/22/20 08:59 07/03/20 10:02 Insulin Aspart (NovoLOG) EVERY 6 HOURS SUBQ 06/07/20 00:00 09/03/20 11:59 07/02/20 13:04 Midazolam HCl 100 mg/Sodium Chloride 200 ml @ 0 mls/hr Q24H PRN IV sedation 07/03/20 12:00 07/05/20 11:59 Midazolam HCl 100 mg/Sodium Chloride 200 ml @ 0 mls/hr Q24H PRN IV sedation 07/01/20 15:45 07/03/20 11:59 07/03/20 00:25 Midodrine (Pro-Amatine) 10 mg Q8HR GT 06/30/20 14:00 09/12/20 13:59 07/02/20 21:46 Polyethylene Glycol (Miralax) 17 gm BEDTIME GT 06/07/20 21:00 07/07/20 20:59 07/02/20 20:32 Vitamin D (Vitamin D) 5,000 unit DAILY GT 06/28/20 09:00 07/28/20 08:59 07/02/20 10:03 Laboratory Tests 07/03/20 03:30: Stool Occult Blood [Pending] 07/03/20 06:03: White Blood Count 5.2, Red Blood Count 2.86L, Hemoglobin 8.2L, Hematocrit 27.1L, Mean Corpuscular Volume 95, Mean Corpuscular Hemoglobin 28.6, Mean Corpuscular Hemoglobin Concent 30.2L, Red Cell Distribution Width 18.2H, Platelet Count 212, Mean Platelet Volume 7.6, Neutrophils (%) (Auto) 58.6, Lymphocytes (%) (Auto) 26.9, Monocytes (%) (Auto) 8.0, Eosinophils (%) (Auto) 5.5H, Basophils (%) (Auto) 1.0, Sodium Level 142, Potassium Level 3.3L, Chloride Level 99, Carbon Dioxide Level 43*H, Blood Urea Nitrogen 10, Creatinine 0.5L, Estimat Glomerular Filtration Rate > 60, Glucose Level 102, Calcium Level 9.2, Phosphorus Level 3.5, Magnesium Level 2.0, Total Bilirubin 1.5H, Direct Bilirubin 0.3, Aspartate Amino Transf (AST/SGOT) 32, Alanine Aminotransferase (ALT/SGPT) 23, Alkaline Phosphatase 78, C-Reactive Protein, Quantitative 6.1H, Pro-B-Type Natriuretic Peptide 1026H, Total Protein 7.0, Albumin 2.4L, Globulin 4.6, Albumin/Globulin Ratio 0.5L Height (Feet): 5 Height (Inches): 6.00 Weight (Pounds): 239 General Appearance: no apparent distress EENT: other - Intubated on ventilator Cardiovascular: tachycardia Respiratory/Chest: decreased breath sounds Abdomen: distended Rigo Tyler MD Jul 03, 2020 10:13
--- NOTE | 2020-07-03 10:20 | Pulmonology Progress Note ---
Subjective ROS Limited/Unobtainable: Yes Interval Events: Remains intubated Constitutional: Denies: fever HEENT: Repors: no symptoms Respiratory: Reports: no symptoms Cardiovascular: Reports: no symptoms Gastrointestinal/Abdominal: Reports: no symptoms Genitourinary: Reports: no symptoms Allergies: Coded Allergies: No Known Allergies (Unverified , 05/28/20) All Systems: reviewed and negative except above Objective Last 24 Hour Vital Signs Date Time Temp Pulse Resp B/P (MAP) Pulse Ox O2 Delivery O2 Flow Rate FiO2 07/03/20 09:53 96 15 70 07/03/20 09:00 94 21 97/66 (76) 98 07/03/20 08:00 70 07/03/20 08:00 95 18 103/62 (76) 99 07/03/20 08:00 94 07/03/20 08:00 98.9 07/03/20 07:24 91 15 70 07/03/20 07:00 99.6 92 15 94/58 (70) 98 07/03/20 07:00 15 Mechanical Ventilator 70 07/03/20 07:00 15 94/58 Mechanical Ventilator 70 07/03/20 06:30 92 15 07/03/20 06:00 100.3 98 17 95/60 (72) 97 07/03/20 06:00 17 Mechanical Ventilator 90 07/03/20 06:00 17 95/60 Mechanical Ventilator 90 07/03/20 05:00 96 18 94/56 (69) 97 07/03/20 05:00 18 Mechanical Ventilator 100 07/03/20 05:00 18 94/56 Mechanical Ventilator 70 07/03/20 04:00 97.6 98 17 92/54 (67) 94 07/03/20 04:00 70 07/03/20 04:00 17 Mechanical Ventilator 70 07/03/20 04:00 17 92/54 Mechanical Ventilator 70 07/03/20 04:00 Mechanical Ventilator Mechanical Ventilator 07/03/20 04:00 98 07/03/20 03:45 96 17 70 07/03/20 03:00 16 Mechanical Ventilator 90 07/03/20 03:00 16 102/63 Mechanical Ventilator 70 07/03/20 03:00 98 16 102/63 (76) 100 07/03/20 02:00 95 15 104/63 (77) 100 07/03/20 02:00 15 Mechanical Ventilator 70 07/03/20 02:00 15 104/63 Mechanical Ventilator 70 07/03/20 01:00 93 15 99/62 (74) 100 07/03/20 01:00 15 Mechanical Ventilator 70 07/03/20 01:00 15 99/62 Mechanical Ventilator 70 07/03/20 00:25 15 Mechanical Ventilator 70 07/03/20 00:00 Mechanical Ventilator Mechanical Ventilator 07/03/20 00:00 33 Mechanical Ventilator 70 07/03/20 00:00 33 138/68 Mechanical Ventilator 70 07/03/20 00:00 97.8 91 15 102/58 (73) 100 07/03/20 00:00 91 07/03/20 00:00 70 07/02/20 23:15 93 15 70 07/02/20 23:00 95 20 106/69 (81) 100 07/02/20 23:00 32 Mechanical Ventilator 70 07/02/20 23:00 32 120/62 Mechanical Ventilator 70 07/02/20 22:00 95 17 106/62 (77) 99 07/02/20 22:00 32 Mechanical Ventilator 70 07/02/20 22:00 32 121/66 Mechanical Ventilator 70 07/02/20 21:00 18 Mechanical Ventilator 70 07/02/20 21:00 18 91/58 Mechanical Ventilator 70 07/02/20 21:00 91 18 91/58 (69) 100 07/02/20 20:30 94 19 97/54 (68) 100 07/02/20 20:00 Mechanical Ventilator Mechanical Ventilator 07/02/20 20:00 97.6 94 18 104/61 (75) 100 07/02/20 20:00 18 Mechanical Ventilator 70 07/02/20 20:00 18 104/61 Mechanical Ventilator 70 07/02/20 20:00 70 07/02/20 19:36 92 07/02/20 19:35 93 17 70 07/02/20 19:00 91 15 95/59 (71) 100 07/02/20 18:59 15 90/55 Endotracheal Tube 70 07/02/20 18:30 90 16 94/58 (70) 100 07/02/20 18:00 90 16 97/66 (76) 100 07/02/20 18:00 17 Mechanical Ventilator 70 07/02/20 18:00 17 97/66 Mechanical Ventilator 70 07/02/20 17:30 90 15 101/55 (70) 100 07/02/20 17:00 16 Mechanical Ventilator 70 07/02/20 17:00 16 98/50 Mechanical Ventilator 70 07/02/20 17:00 90 15 98/50 (66) 100 07/02/20 16:30 90 16 100/49 (66) 100 07/02/20 16:00 Mechanical Ventilator Mechanical Ventilator 07/02/20 16:00 70 07/02/20 16:00 97.7 90 16 91/60 (70) 100 07/02/20 16:00 17 Mechanical Ventilator 70 07/02/20 16:00 17 91/60 Mechanical Ventilator 70 07/02/20 16:00 91 07/02/20 15:30 92 17 81/44 (56) 100 07/02/20 15:18 90 17 70 07/02/20 15:00 93 16 103/70 (81) 100 07/02/20 15:00 17 Mechanical Ventilator 70 07/02/20 15:00 17 103/70 Mechanical Ventilator 70 07/02/20 14:30 95 17 98/55 (69) 100 07/02/20 14:00 98 17 92/45 (61) 100 07/02/20 13:52 16 Mechanical Ventilator 07/02/20 13:30 98 17 89/47 (61) 99 07/02/20 13:00 98 18 104/50 (68) 99 07/02/20 12:30 103 24 123/76 (92) 90 07/02/20 12:00 97.6 95 22 104/86 (92) 95 07/02/20 12:00 70 07/02/20 12:00 Mechanical Ventilator Mechanical Ventilator 07/02/20 12:00 98 07/02/20 11:30 98 21 117/73 (88) 94 07/02/20 11:05 96 22 70 07/02/20 11:00 101 31 128/78 (95) 88 07/02/20 10:30 92 18 115/69 (84) 94 Intake and Output 07/02/20 07/03/20 19:00 07:00 Intake Total 1582 ml 1326 ml Output Total 1717 ml 420 ml Balance -135 ml 906 ml Free Water 100 ml IV Total 1002 ml 1006 ml Tube Feeding 480 ml 200 ml Other 120 ml Output Urine Total 1697 ml 390 ml Stool Total 20 ml 30 ml General Appearance: no acute distress HEENT: normocephalic Respiratory: chest wall non-tender Cardiovascular: normal peripheral pulses Abdomen: normal bowel sounds Laboratory Tests 07/03/20 03:30: Stool Occult Blood [Pending] 07/03/20 06:03: White Blood Count 5.2, Red Blood Count 2.86L, Hemoglobin 8.2L, Hematocrit 27.1L, Mean Corpuscular Volume 95, Mean Corpuscular Hemoglobin 28.6, Mean Corpuscular Hemoglobin Concent 30.2L, Red Cell Distribution Width 18.2H, Platelet Count 212, Mean Platelet Volume 7.6, Neutrophils (%) (Auto) 58.6, Lymphocytes (%) (Auto) 26.9, Monocytes (%) (Auto) 8.0, Eosinophils (%) (Auto) 5.5H, Basophils (%) ( Auto) 1.0, Sodium Level 142, Potassium Level 3.3L, Chloride Level 99, Carbon Dioxide Level 43*H, Blood Urea Nitrogen 10, Creatinine 0.5L, Estimat Glomerular Filtration Rate > 60, Glucose Level 102, Calcium Level 9.2, Phosphorus Level 3.5, Magnesium Level 2.0, Total Bilirubin 1.5H, Direct Bilirubin 0.3, Aspartate Amino Transf (AST/SGOT) 32, Alanine Aminotransferase (ALT/SGPT) 23, Alkaline Phosphatase 78, C-Reactive Protein, Quantitative 6.1H, Pro-B-Type Natriuretic Peptide 1026H, Total Protein 7.0, Albumin 2.4L, Globulin 4.6, Albumin/Globulin Ratio 0.5L Current Medications Medications (Trade) Dose Ordered Sig/Zelda Route PRN Reason Start Time Stop Time Status Last Admin Dose Admin Acetaminophen (Tylenol) 650 mg Q4H PRN NG Temp >100.5 06/29/20 10:15 07/29/20 10:14 07/02/20 00:53 Acetaminophen (Tylenol) 650 mg Q6H PRN NG Mild Pain (Pain Scale 1-3) 06/29/20 10:15 07/29/20 10:14 Chlorhexidine Gluconate (Inna-Hex 2%) 1 applic DAILY@1999 TOPIC 05/30/20 20:00 08/28/20 19:59 07/02/20 19:40 Dextrose (Dextrose 50%) 25 ml Q30M PRN IV Hypoglycemia 06/05/20 10:45 09/03/20 10:44 Dextrose (Dextrose 50%) 50 ml Q30M PRN IV Hypoglycemia 06/05/20 10:45 09/03/20 10:44 Dextrose/Sodium Chloride 1,000 ml @ 50 mls/hr Q20H IV 06/24/20 16:30 07/24/20 16:29 07/03/20 00:26 Docusate Sodium (Colace) 100 mg Q12HR GT 06/07/20 21:00 07/07/20 20:59 07/03/20 10:02 Enoxaparin Sodium (Lovenox) 40 mg DAILY SUBQ 05/30/20 10:00 08/28/20 09:59 07/03/20 10:03 Fentanyl Citrate 250 ml @ 1 mls/hr Q24H IV 07/03/20 11:00 07/05/20 10:59 Fentanyl Citrate 250 ml @ 1 mls/hr Q24H IV 07/01/20 09:15 07/03/20 10:59 07/02/20 18:59 Furosemide (Lasix) 40 mg DAILY IV 06/22/20 09:00 07/22/20 08:59 07/03/20 10:02 Insulin Aspart (NovoLOG) EVERY 6 HOURS SUBQ 06/07/20 00:00 09/03/20 11:59 07/02/20 13:04 Midazolam HCl 100 mg/Sodium Chloride 200 ml @ 0 mls/hr Q24H PRN IV sedation 07/03/20 12:00 07/05/20 11:59 Midazolam HCl 100 mg/Sodium Chloride 200 ml @ 0 mls/hr Q24H PRN IV sedation 07/01/20 15:45 07/03/20 11:59 07/03/20 00:25 Midodrine (Pro-Amatine) 10 mg Q8HR GT 06/30/20 14:00 09/12/20 13:59 07/02/20 21:46 Polyethylene Glycol (Miralax) 17 gm BEDTIME GT 06/07/20 21:00 07/07/20 20:59 07/02/20 20:32 Vitamin D (Vitamin D) 5,000 unit DAILY GT 06/28/20 09:00 07/28/20 08:59 07/02/20 10:03 Assessment/Plan Assessment/Plan 1. COVID-19 pneumonia -Intubated 05/28/20 - We will continue broad-spectrum antibiotics. -s/p solumedrol, Rocephin -Continue PEEP 6 ->7 - Peak airway pressures high; 45 - FiO2 100% -> 90 ->80->60 ->40 ->80 ->100 ->80 -70%; -will continue OGT feeding -Continue sedation; Need to keep patient completely sedated. 2. Hyponatremia -Per primary MD 3. Elevated inflammatory markers - has high D dimer; Lovenox on hold due to hematuria 4. Decrease PEEP Continue weaning efforts May need trach Discussed with surgery Now down to 70 FiO2 ; PEEP 7 WIll request surgery for trach Long discussion with family who wish to wean her off the oxygen eventually instead of trach. Trach if "necessary" per family. Discussed with niece. She was advised regarding poor prognosis. Discussed with RN. Noted bioethics evaluation. For trach in Javier Burris MD Jul 03, 2020 10:20
--- NOTE | 2020-07-03 11:17 | Infectious Diseases Prog Note ---
Assessment/Plan Assessment/Plan antibiotics : none A 1. covid 19 pneumonia on 70 % Fi O2 with 93 % saturation s/p remdesivir s/p solumedrol 2. respiratory failure 3. serratia pneumonia s/p rx P 1. continue off antibiotics 2. continue isolation Subjective ROS Limited/Unobtainable: Yes Allergies: Coded Allergies: No Known Allergies (Unverified , 05/28/20) Objective Last 24 Hour Vital Signs Date Time Temp Pulse Resp B/P (MAP) Pulse Ox O2 Delivery O2 Flow Rate FiO2 07/03/20 11:11 108 19 70 07/03/20 11:00 99 21 121/81 (94) 93 07/03/20 10:18 15 Endotracheal Tube 70 07/03/20 10:00 92 19 96/62 (73) 98 07/03/20 10:00 100 21 119/77 (91) 91 07/03/20 09:53 96 15 70 07/03/20 09:00 94 21 97/66 (76) 98 07/03/20 08:00 70 07/03/20 08:00 95 18 103/62 (76) 99 07/03/20 08:00 Mechanical Ventilator Mechanical Ventilator 07/03/20 08:00 94 07/03/20 08:00 98.9 07/03/20 07:24 91 15 70 07/03/20 07:00 99.6 92 15 94/58 (70) 98 07/03/20 07:00 15 Mechanical Ventilator 70 07/03/20 07:00 15 94/58 Mechanical Ventilator 70 07/03/20 06:30 92 15 07/03/20 06:00 100.3 98 17 95/60 (72) 97 07/03/20 06:00 17 Mechanical Ventilator 90 07/03/20 06:00 17 95/60 Mechanical Ventilator 90 07/03/20 05:00 96 18 94/56 (69) 97 07/03/20 05:00 18 Mechanical Ventilator 100 07/03/20 05:00 18 94/56 Mechanical Ventilator 70 07/03/20 04:00 97.6 98 17 92/54 (67) 94 07/03/20 04:00 70 07/03/20 04:00 17 Mechanical Ventilator 70 07/03/20 04:00 17 92/54 Mechanical Ventilator 70 07/03/20 04:00 Mechanical Ventilator Mechanical Ventilator 07/03/20 04:00 98 07/03/20 03:45 96 17 70 07/03/20 03:00 16 Mechanical Ventilator 90 07/03/20 03:00 16 102/63 Mechanical Ventilator 70 07/03/20 03:00 98 16 102/63 (76) 100 07/03/20 02:00 95 15 104/63 (77) 100 07/03/20 02:00 15 Mechanical Ventilator 70 07/03/20 02:00 15 104/63 Mechanical Ventilator 70 07/03/20 01:00 93 15 99/62 (74) 100 07/03/20 01:00 15 Mechanical Ventilator 70 07/03/20 01:00 15 99/62 Mechanical Ventilator 70 07/03/20 00:25 15 Mechanical Ventilator 70 07/03/20 00:00 Mechanical Ventilator Mechanical Ventilator 07/03/20 00:00 33 Mechanical Ventilator 70 07/03/20 00:00 33 138/68 Mechanical Ventilator 70 07/03/20 00:00 97.8 91 15 102/58 (73) 100 07/03/20 00:00 91 07/03/20 00:00 70 07/02/20 23:15 93 15 70 07/02/20 23:00 95 20 106/69 (81) 100 07/02/20 23:00 32 Mechanical Ventilator 70 07/02/20 23:00 32 120/62 Mechanical Ventilator 70 07/02/20 22:00 95 17 106/62 (77) 99 07/02/20 22:00 32 Mechanical Ventilator 70 07/02/20 22:00 32 121/66 Mechanical Ventilator 70 07/02/20 21:00 18 Mechanical Ventilator 70 07/02/20 21:00 18 91/58 Mechanical Ventilator 70 07/02/20 21:00 91 18 91/58 (69) 100 07/02/20 20:30 94 19 97/54 (68) 100 07/02/20 20:00 Mechanical Ventilator Mechanical Ventilator 07/02/20 20:00 97.6 94 18 104/61 (75) 100 07/02/20 20:00 18 Mechanical Ventilator 70 07/02/20 20:00 18 104/61 Mechanical Ventilator 70 07/02/20 20:00 70 07/02/20 19:36 92 07/02/20 19:35 93 17 70 07/02/20 19:00 91 15 95/59 (71) 100 2/9/21 18:59 15 90/55 Endotracheal Tube 70 07/02/20 18:30 90 16 94/58 (70) 100 07/02/20 18:00 90 16 97/66 (76) 100 07/02/20 18:00 17 Mechanical Ventilator 70 07/02/20 18:00 17 97/66 Mechanical Ventilator 70 07/02/20 17:30 90 15 101/55 (70) 100 07/02/20 17:00 16 Mechanical Ventilator 70 07/02/20 17:00 16 98/50 Mechanical Ventilator 70 07/02/20 17:00 90 15 98/50 (66) 100 07/02/20 16:30 90 16 100/49 (66) 100 07/02/20 16:00 Mechanical Ventilator Mechanical Ventilator 07/02/20 16:00 70 07/02/20 16:00 97.7 90 16 91/60 (70) 100 07/02/20 16:00 17 Mechanical Ventilator 70 07/02/20 16:00 17 91/60 Mechanical Ventilator 70 07/02/20 16:00 91 07/02/20 15:30 92 17 81/44 (56) 100 07/02/20 15:18 90 17 70 07/02/20 15:00 93 16 103/70 (81) 100 07/02/20 15:00 17 Mechanical Ventilator 70 07/02/20 15:00 17 103/70 Mechanical Ventilator 70 07/02/20 14:30 95 17 98/55 (69) 100 07/02/20 14:00 98 17 92/45 (61) 100 07/02/20 13:52 16 Mechanical Ventilator 07/02/20 13:30 98 17 89/47 (61) 99 07/02/20 13:00 98 18 104/50 (68) 99 07/02/20 12:30 103 24 123/76 (92) 90 07/02/20 12:00 97.6 95 22 104/86 (92) 95 07/02/20 12:00 70 07/02/20 12:00 Mechanical Ventilator Mechanical Ventilator 07/02/20 12:00 98 07/02/20 11:30 98 21 117/73 (88) 94 Height (Feet): 5 Height (Inches): 6.00 Weight (Pounds): 239 HEENT: other - intubated Laboratory Tests Test 2/10/21 03:30 07/03/20 06:03 Stool Occult Blood Pending White Blood Count 5.2 K/UL (4.8-10.8) Red Blood Count 2.86 M/UL (4.20-5.40) L Hemoglobin 8.2 G/DL (12.0-16.0) L Hematocrit 27.1 % (37.0-47.0) L Mean Corpuscular Volume 95 FL (80-99) Mean Corpuscular Hemoglobin 28.6 PG (27.0-31.0) Mean Corpuscular Hemoglobin Concent 30.2 G/DL (32.0-36.0) L Red Cell Distribution Width 18.2 % (11.6-14.8) H Platelet Count 212 K/UL (150-450) Mean Platelet Volume 7.6 FL (6.5-10.1) Neutrophils (%) (Auto) 58.6 % (45.0-75.0) Lymphocytes (%) (Auto) 26.9 % (20.0-45.0) Monocytes (%) (Auto) 8.0 % (1.0-10.0) Eosinophils (%) (Auto) 5.5 % (0.0-3.0) H Basophils (%) (Auto) 1.0 % (0.0-2.0) Sodium Level 142 MMOL/L (136-145) Potassium Level 3.3 MMOL/L (3.5-5.1) L Chloride Level 99 MMOL/L (98-107) Carbon Dioxide Level 43 MMOL/L (21-32) *H Blood Urea Nitrogen 10 mg/dL (7-18) Creatinine 0.5 MG/DL (0.55-1.30) L Estimat Glomerular Filtration Rate > 60 mL/min (>60) Glucose Level 102 MG/DL (74-106) Calcium Level 9.2 MG/DL (8.5-10.1) Phosphorus Level 3.5 MG/DL (2.5-4.9) Magnesium Level 2.0 MG/DL (1.8-2.4) Total Bilirubin 1.5 MG/DL (0.2-1.0) H Direct Bilirubin 0.3 MG/DL (0.0-0.3) Aspartate Amino Transf (AST/SGOT) 32 U/L (15-37) Alanine Aminotransferase (ALT/SGPT) 23 U/L (12-78) Alkaline Phosphatase 78 U/L (46-116) C-Reactive Protein, Quantitative 6.1 mg/dL (0.00-0.90) H Pro-B-Type Natriuretic Peptide 1026 pg/mL (0-125) H Total Protein 7.0 G/DL (6.4-8.2) Albumin 2.4 G/DL (3.4-5.0) L Globulin 4.6 g/dL Albumin/Globulin Ratio 0.5 (1.0-2.7) L Current Medications Medications (Trade) Dose Ordered Sig/Zelda Route PRN Reason Start Time Stop Time Status Last Admin Dose Admin Acetaminophen (Tylenol) 650 mg Q4H PRN NG Temp >100.5 06/29/20 10:15 07/29/20 10:14 07/02/20 00:53 Acetaminophen (Tylenol) 650 mg Q6H PRN NG Mild Pain (Pain Scale 1-3) 06/29/20 10:15 07/29/20 10:14 Chlorhexidine Gluconate (Inna-Hex 2%) 1 applic DAILY@2000 TOPIC 05/30/20 20:00 08/28/20 19:59 07/02/20 19:40 Dextrose (Dextrose 50%) 25 ml Q30M PRN IV Hypoglycemia 06/05/20 10:45 09/03/20 10:44 Dextrose (Dextrose 50%) 50 ml Q30M PRN IV Hypoglycemia 06/05/20 10:45 09/03/20 10:44 Dextrose/Sodium Chloride 1,000 ml @ 50 mls/hr Q20H IV 06/24/20 16:30 07/24/20 16:29 07/03/20 00:26 Docusate Sodium (Colace) 100 mg Q12HR GT 06/07/20 21:00 07/07/20 20:59 07/03/20 10:02 Enoxaparin Sodium (Lovenox) 40 mg DAILY SUBQ 05/30/20 10:00 08/28/20 09:59 07/03/20 10:03 Fentanyl Citrate 250 ml @ 1 mls/hr Q24H IV 07/03/20 11:00 07/05/20 10:59 Furosemide (Lasix) 40 mg DAILY IV 06/22/20 09:00 07/22/20 08:59 07/03/20 10:02 Insulin Aspart (NovoLOG) EVERY 6 HOURS SUBQ 06/07/20 00:00 09/03/20 11:59 07/02/20 13:04 Midazolam HCl 100 mg/Sodium Chloride 200 ml @ 0 mls/hr Q24H PRN IV sedation 07/03/20 12:00 07/05/20 11:59 Midazolam HCl 100 mg/Sodium Chloride 200 ml @ 0 mls/hr Q24H PRN IV sedation 07/01/20 15:45 07/03/20 11:59 07/03/20 10:18 Midodrine (Pro-Amatine) 10 mg Q8HR GT 06/30/20 14:00 09/12/20 13:59 07/02/20 21:46 Polyethylene Glycol (Miralax) 17 gm BEDTIME GT 06/07/20 21:00 07/07/20 20:59 07/02/20 20:32 Vitamin D (Vitamin D) 5,000 unit DAILY GT 06/28/20 09:00 07/28/20 08:59 07/02/20 10:03 Fili Mcelroy MD Jul 03, 2020 11:17
[2020-07-03] MEDS ORDERED: Midazolam HCl 50mg/10ml vial 100 MG in NS 180 ML IV PRN (12:00)
[2020-07-03] MEDS: Vitamin D 1000 units Tab GT SCH (12:10)
--- NOTE | 2020-07-03 13:30 | Surgery Progress Note ---
Surgery Progress Note Subjective Additional Comments ill appearing on support labs noted imaging reviewed micro reviewed cont weaning Objective Last 24 Hour Vital Signs Date Time Temp Pulse Resp B/P (MAP) Pulse Ox O2 Delivery O2 Flow Rate FiO2 07/03/20 13:00 97 18 102/61 (75) 99 07/03/20 12:00 70 07/03/20 12:00 19 106/68 Endotracheal Tube 70 07/03/20 12:00 27 Endotracheal Tube 30 07/03/20 12:00 98.3 99 22 108/74 (85) 97 07/03/20 12:00 96 07/03/20 12:00 Mechanical Ventilator Mechanical Ventilator 07/03/20 11:30 23 121/81 Endotracheal Tube 70 07/03/20 11:11 108 19 70 07/03/20 11:00 15 Endotracheal Tube 70 07/03/20 11:00 15 121/81 Endotracheal Tube 70 07/03/20 11:00 99 21 121/81 (94) 93 07/03/20 10:18 15 Endotracheal Tube 70 07/03/20 10:00 92 19 96/62 (73) 98 07/03/20 10:00 15 Endotracheal Tube 70 07/03/20 10:00 15 96/62 Endotracheal Tube 70 07/03/20 10:00 100 21 119/77 (91) 91 07/03/20 09:53 96 15 70 07/03/20 09:00 15 Endotracheal Tube 70 07/03/20 09:00 15 97/66 Endotracheal Tube 70 07/03/20 09:00 94 21 97/66 (76) 98 07/03/20 08:00 70 07/03/20 08:00 15 Endotracheal Tube 70 07/03/20 08:00 15 103/62 Endotracheal Tube 70 07/03/20 08:00 95 18 103/62 (76) 99 07/03/20 08:00 Mechanical Ventilator Mechanical Ventilator 07/03/20 08:00 94 07/03/20 08:00 98.9 07/03/20 07:24 91 15 70 07/03/20 07:00 99.6 92 15 94/58 (70) 98 07/03/20 07:00 15 Mechanical Ventilator 70 07/03/20 07:00 15 94/58 Mechanical Ventilator 70 07/03/20 06:30 92 15 07/03/20 06:00 100.3 98 17 95/60 (72) 97 2/10/21 06:00 17 Mechanical Ventilator 90 07/03/20 06:00 17 95/60 Mechanical Ventilator 90 07/03/20 05:00 96 18 94/56 (69) 97 07/03/20 05:00 18 Mechanical Ventilator 100 07/03/20 05:00 18 94/56 Mechanical Ventilator 70 07/03/20 04:00 97.6 98 17 92/54 (67) 94 07/03/20 04:00 70 07/03/20 04:00 17 Mechanical Ventilator 70 07/03/20 04:00 17 92/54 Mechanical Ventilator 70 07/03/20 04:00 Mechanical Ventilator Mechanical Ventilator 07/03/20 04:00 98 07/03/20 03:45 96 17 70 07/03/20 03:00 16 Mechanical Ventilator 90 07/03/20 03:00 16 102/63 Mechanical Ventilator 70 07/03/20 03:00 98 16 102/63 (76) 100 07/03/20 02:00 95 15 104/63 (77) 100 07/03/20 02:00 15 Mechanical Ventilator 70 07/03/20 02:00 15 104/63 Mechanical Ventilator 70 07/03/20 01:00 93 15 99/62 (74) 100 07/03/20 01:00 15 Mechanical Ventilator 70 07/03/20 01:00 15 99/62 Mechanical Ventilator 70 07/03/20 00:25 15 Mechanical Ventilator 70 07/03/20 00:00 Mechanical Ventilator Mechanical Ventilator 07/03/20 00:00 33 Mechanical Ventilator 70 07/03/20 00:00 33 138/68 Mechanical Ventilator 70 07/03/20 00:00 97.8 91 15 102/58 (73) 100 07/03/20 00:00 91 07/03/20 00:00 70 07/02/20 23:15 93 15 70 07/02/20 23:00 95 20 106/69 (81) 100 07/02/20 23:00 32 Mechanical Ventilator 70 07/02/20 23:00 32 120/62 Mechanical Ventilator 70 07/02/20 22:00 95 17 106/62 (77) 99 07/02/20 22:00 32 Mechanical Ventilator 70 07/02/20 22:00 32 121/66 Mechanical Ventilator 70 07/02/20 21:00 18 Mechanical Ventilator 70 07/02/20 21:00 18 91/58 Mechanical Ventilator 70 07/02/20 21:00 91 18 91/58 (69) 100 07/02/20 20:30 94 19 97/54 (68) 100 07/02/20 20:00 Mechanical Ventilator Mechanical Ventilator 07/02/20 20:00 97.6 94 18 104/61 (75) 100 07/02/20 20:00 18 Mechanical Ventilator 70 07/02/20 20:00 18 104/61 Mechanical Ventilator 70 07/02/20 20:00 70 07/02/20 19:36 92 07/02/20 19:35 93 17 70 07/02/20 19:00 91 15 95/59 (71) 100 07/02/20 18:59 15 90/55 Endotracheal Tube 70 07/02/20 18:30 90 16 94/58 (70) 100 07/02/20 18:00 90 16 97/66 (76) 100 07/02/20 18:00 17 Mechanical Ventilator 70 07/02/20 18:00 17 97/66 Mechanical Ventilator 70 07/02/20 17:30 90 15 101/55 (70) 100 07/02/20 17:00 16 Mechanical Ventilator 70 07/02/20 17:00 16 98/50 Mechanical Ventilator 70 07/02/20 17:00 90 15 98/50 (66) 100 07/02/20 16:30 90 16 100/49 (66) 100 07/02/20 16:00 Mechanical Ventilator Mechanical Ventilator 07/02/20 16:00 70 07/02/20 16:00 97.7 90 16 91/60 (70) 100 07/02/20 16:00 17 Mechanical Ventilator 70 07/02/20 16:00 17 91/60 Mechanical Ventilator 70 07/02/20 16:00 91 07/02/20 15:30 92 17 81/44 (56) 100 07/02/20 15:18 90 17 70 07/02/20 15:00 93 16 103/70 (81) 100 07/02/20 15:00 17 Mechanical Ventilator 70 07/02/20 15:00 17 103/70 Mechanical Ventilator 70 07/02/20 14:30 95 17 98/55 (69) 100 07/02/20 14:00 98 17 92/45 (61) 100 07/02/20 13:52 16 Mechanical Ventilator 07/02/20 13:30 98 17 89/47 (96) 99 I&O Intake and Output 07/02/20 07/03/20 19:00 07:00 Intake Total 1582 ml 1326 ml Output Total 1717 ml 420 ml Balance -135 ml 906 ml Free Water 100 ml IV Total 1002 ml 1006 ml Tube Feeding 480 ml 200 ml Other 120 ml Output Urine Total 1697 ml 390 ml Stool Total 20 ml 30 ml Cardiovascular: RSR Respiratory: decreased breath sounds Abdomen: soft, non-tender, present bowel sounds Extremities: no tenderness, no cyanosis Laboratory Tests Test 07/03/20 03:30 07/03/20 06:03 Stool Occult Blood Pending White Blood Count 5.2 K/UL (4.8-10.8) Red Blood Count 2.86 M/UL (4.20-5.40) L Hemoglobin 8.2 G/DL (12.0-16.0) L Hematocrit 27.1 % (37.0-47.0) L Mean Corpuscular Volume 95 FL (80-99) Mean Corpuscular Hemoglobin 28.6 PG (27.0-31.0) Mean Corpuscular Hemoglobin Concent 30.2 G/DL (32.0-36.0) L Red Cell Distribution Width 18.2 % (11.6-14.8) H Platelet Count 212 K/UL (150-450) Mean Platelet Volume 7.6 FL (6.5-10.1) Neutrophils (%) (Auto) 58.6 % (45.0-75.0) Lymphocytes (%) (Auto) 26.9 % (20.0-45.0) Monocytes (%) (Auto) 8.0 % (1.0-10.0) Eosinophils (%) (Auto) 5.5 % (0.0-3.0) H Basophils (%) (Auto) 1.0 % (0.0-2.0) Sodium Level 142 MMOL/L (136-145) Potassium Level 3.3 MMOL/L (3.5-5.1) L Chloride Level 99 MMOL/L (98-107) Carbon Dioxide Level 43 MMOL/L (21-32) *H Blood Urea Nitrogen 10 mg/dL (7-18) Creatinine 0.5 MG/DL (0.55-1.30) L Estimat Glomerular Filtration Rate > 60 mL/min (>60) Glucose Level 102 MG/DL (74-106) Calcium Level 9.2 MG/DL (8.5-10.1) Phosphorus Level 3.5 MG/DL (2.5-4.9) Magnesium Level 2.0 MG/DL (1.8-2.4) Total Bilirubin 1.5 MG/DL (0.2-1.0) H Direct Bilirubin 0.3 MG/DL (0.0-0.3) Aspartate Amino Transf (AST/SGOT) 32 U/L (15-37) Alanine Aminotransferase (ALT/SGPT) 23 U/L (12-78) Alkaline Phosphatase 78 U/L (46-116) C-Reactive Protein, Quantitative 6.1 mg/dL (0.00-0.90) H Pro-B-Type Natriuretic Peptide 1026 pg/mL (0-125) H Total Protein 7.0 G/DL (6.4-8.2) Albumin 2.4 G/DL (3.4-5.0) L Globulin 4.6 g/dL Albumin/Globulin Ratio 0.5 (1.0-2.7) L Plan Problems: (1) Respiratory distress (2) Respiratory failure Assessment & Plan: 50-year-old female Covid positive respiratory insufficiency intubated on ventilatory support declining. Leukocytosis increase oxygen requirement. Vent settings per pulmonology reviewed identified and agree. Unfortunately further surgical invention at this time is not appropriate as patient is not a candidate and her current condition. Prognosis overall guarded. Tracheostomy can be considered in the future if recovering or shows improvement and requires unable to be weaned from ventilator support. Currently okay for nutritional optimization with NG tube. Will need significant monitoring for decubitus formation given patient's size and condition. Okay for air mattress tolerated. Turn every 2 hours as tolerated. Patient is otherwise critically ill and blood pressure labile. Will need to monitor closely.Bilateral infiltrates are again demonstrated. Stable tube and line positions. will need trach will need to wean vent first (3) Hypoxia (4) Pneumonia due to COVID-19 virus Assessment & Plan: ++ as per pulm and ID (5) Diabetes mellitus out of control Assessment & Plan: DAILY ESTIMATED NEEDS: Needs based on Critical care, obesity 11-14kcal/kg actual body wt (140kg) kcals/kg 9026-1931 total kcals 1.5-2.0g prot/kg IBW (64.5kg) g protein/kg 96-129 g total protein 25-30ml/kg abw (83kg) mL/kg 6130-6721 total fluid mLs NUTRITION DIAGNOSIS: Swallowing difficulty R/T respiratory failure as evidenced by pt orally intubated and sedated, on OGT feeds. CURRENT TF: Vital 1.2 goal of 60ml/hr ENTERAL NUTRITION RECOMMENDATIONS: Vital AF 1.2 @ 60ml/hr x 24 hrs to provide 1440ml, 1728kcal, 108g prot, 1168ml free water * Maintain current critical care and carb controlled TF formula of Vital AF * TF @ goal meeds 100% est kcal/prot needs * HOB over 30 degrees/ water flush per MD TF may be lowered to 55ml/hr for improved BG control while maintaining Kcal and pro needs. ADDITIONAL RECOMMENDATIONS: * Calibrated bedscale wt * Monitor Propofol rate, need for TF adjustment-> now off * Monitor BGs closely : now improved, on novolog q 6rs + NISS * Monitor lytes- K elevated, monitor need for TF change * Rec bowel regimen- now w/ rectal tube . Az Devine Jul 03, 2020 13:29
--- NOTE | 2020-07-03 13:52 | NUR ---
CASE MANAGEMENT:REVIEW 07/03/20 SI: COVID PNEUMONIA ~ INTUBATED 99.6 92 94/58 98% % ON VENT SUPPORT W/70% FIO2 H/H-8.2/27.1 K-3.3 CO2+43 PCO2+77.8 PO2-72.7 HCO3+43.1 IS:VERSED GTT PRN FENTANYL GTT IV LASIX QD IV PROTONIX Q12 LOVENOX SQ QD IVF@50/HR MIDODRINE NG Q8HRS : ICU STATUS DCP: FROM HOME PLAN: WILL EVENTUALLY NEED TRACH
--- NOTE | 2020-07-03 14:15 | NUR ---
INSURNACE CLINICALS AND REVIEWS FAXED TO [facility] T: [phone] EXT [phone] F: [phone] REF 2020 [id number]
--- NOTE | 2020-07-03 19:10 | NUR ---
NURSE NOTES: Received patient from [facility]. patient is sedated, opens eyes, withdraws to pain. sinus rhythm on the monitor. ETT 7, 23cm at the lip. AC 15 TV 600 FiO2 70% PEEP 7. NGT in place and tube feeding Vital AF @40ml/hr. marrero in place and draining well to gravity. rectal tube in place and draining well to gravity. LINDA PICC in place, clean dry and intact. Fentanyl @150mcg/hr and Versed @10mg/hr. bed to lowest position and locked. call light within easy reach. side rails up x2. will continue plan of care.
[2020-07-03] MEDS: Dyna-Hex 2% Top Sol 2oz TOPIC SCH (20:13)
[2020-07-03] MEDS: Miralax 17gm pkt GT SCH (20:13)
--- NOTE | 2020-07-03 22:30 | NUR ---
NURSE NOTES: titrated versed down from 10mg/hr to 8mg/hr. will monitor closely
[2020-07-04] VITALS (36 sets, daily range): BP systolic 96–144; BP diastolic 58–95
--- NOTE | 2020-07-04 | NUR ---
NURSE NOTES: blood glucose 138. no insulin given per sliding scale.
--- NOTE | 2020-07-04 00:11 | NUR ---
NURSE NOTES: tube feeding stopped as patient is having a procedure in the morning
[2020-07-04] MEDS: fentaNYL 2500mcg/NS 250ml 250 ML IV SCH ×2 (02:21→21:17)
[2020-07-04] MEDS: Midodrine 10mg tab GT SCH ×3 (05:24→21:01)
[2020-07-04 05:51] LABS: BASOPHILS % (AUTO) 1.1 % (0.0-2.0); EOSINOPHILS % (AUTO) 5.5 % (0.0-3.0); HEMOGLOBIN 8.8 G/DL (12.0-16.0); LYMPHOCYTES % (AUTO) 27.7 % (20.0-45.0); MEAN CORPUSCULAR VOLUME 96 FL (80-99); MONOCYTES % (AUTO) 9.2 % (1.0-10.0); NEUTROPHILS % (AUTO) 56.6 % (45.0-75.0); PLATELET COUNT 225 K/UL (150-450); RED BLOOD COUNT 3.03 M/UL (4.20-5.40); RED CELL DISTRIBUTION WIDTH 18.8 % (11.6-14.8); WHITE BLOOD COUNT 6.1 K/UL (4.8-10.8)
[2020-07-04 05:52] LABS: PHOSPHORUS 3.9 MG/DL (2.5-4.9)
[2020-07-04 06:13] LABS: ALANINE AMINOTRANSFERASE 23 U/L (12-78); ALBUMIN 2.3 G/DL (3.4-5.0); ALBUMIN/GLOBULIN RATIO 0.5 (1.0-2.7); ALKALINE PHOSPHATASE 79 U/L (46-116); ANION GAP 1 mmol/L (5-15); ASPARTATE AMINO TRANSFERASE 32 U/L (15-37); BILIRUBIN,TOTAL 1.7 MG/DL (0.2-1.0); BLOOD UREA NITROGEN 11 mg/dL (7-18); CALCIUM 9.2 MG/DL (8.5-10.1); CHLORIDE 98 MMOL/L (98-107); CREATININE 0.4 MG/DL (0.55-1.30); POTASSIUM 3.5 MMOL/L (3.5-5.1); SODIUM 142 MMOL/L (136-145)
[2020-07-04 06:14] LABS: CARBON DIOXIDE 44 MMOL/L (21-32)
[2020-07-04 06:16] LABS: BILIRUBIN,DIRECT 0.3 MG/DL (0.0-0.3)
[2020-07-04] MEDS: NovoLOG Insulin Flexpen SUBQ SCH ×5 (06:27→23:28)
--- NOTE | 2020-07-04 06:35 | Hematology/Onc Progress Note ---
Assessment/Plan Assessment/Plan # Deep vein thrombosis of the right calf --> given onoing anemia and low plts --> will order for ivc filter --> once stable, for radiology and ivc filter placement # Thrombocytopenia is due to infection/underlying covid19+++ --> ABX ceftriaxone -->zosyn-->off --> on steriods likely cause of initial wbc --> per pulm --> plt 107->156-->192-->205 --> smear reviewed # Anemia due to chronic disease --> hgb goal is >7 --> transfuse prn --> ferritin is >1000 --> hold off on iron --> 10-->9.8->9-->8-->8.2-->9.4-->8.1-->9.9-->8.7-->9.7-->9.5-->8.1-->8.8 # Elevated ddimer due to covid19++ --> duplex legs is negative --> underlying covid rx # Hypoxia -> due to covid19 # Hypoxemia --> rx same as above # Respiratory failure --> on vent --> per pulm # Pneumonia due to COVID-19 virus --> per pulm rx -> sp remdesivir # Diabetes mellitus out of control --> hgb a1c goal <7 # Poor prognosis # Dvt ppx lovenox sq Appreciate consultation and bowen RN Subjective Allergies: Coded Allergies: No Known Allergies (Unverified , 05/28/20) All Systems: reviewed and negative except above Subjective 06/10 nv, on vent, with ogt, on fentanyl and versed, plt stable 06/11 nv, vent adjusted is on ogt, meds reviewed 06/12 nv, vent, meds noted, labs noted, no bleeding, hgb 10.4 06/13 nv, is on vent, meds reviewed, no bleeding, cbc reviewed 06/14 nv, on vent, tachy, labs reviewed, gross hematuria, febrile overnight, abx 06/17 nv, on vent, labs noted, no major changes, feeling better overnight 06/18 nv, meds reviewed, labs noted, no major events, hgb 8.6 06/19 nv, remains intubated, with fluids, labs reviewed, meds noted 06/20 nv, intubated remains on restraints, meds noted as well, as labs 06/21 nv, remains on vent, on restraints, meds reviewed, labs noted 06/22: covering Dr. Del Cid no acute events 06/23 sedated, on vent, nv, intubated, meds reviewed, versed 06/24 nv, on vent, no night sweats, no bleeding, remains in icu 06/25 nv, on vent, icu, meds noted, no bleeding, comfortable 06/26 nv, on versed, icu, weaning parameters, labs noted 06/27 nv, overnight fighting vent, as per pulm fentanyl on board 06/28 nv, on vent, labs reviewed, as per pulm, meds noted 06/30 nv, icu, labs pending, is on fentanyl, versed, no new changes 07/01 nv, icu, is on vent, labs pending, no new changes per rn 07/02 nv, icu is on vent, labs noted, hgb is stable 07/03 nv, icu, is on vent, potential trrach when stable, cbc reviewed 07/04 icu, nv, labs are noted, stable for trach today dw Rn Dl Objective Objective Current Medications Medications (Trade) Dose Ordered Sig/Zelda Route PRN Reason Start Time Stop Time Status Last Admin Dose Admin Acetaminophen (Tylenol) 650 mg Q4H PRN NG Temp >100.5 06/29/20 10:15 07/29/20 10:14 07/02/20 00:53 Acetaminophen (Tylenol) 650 mg Q6H PRN NG Mild Pain (Pain Scale 1-3) 06/29/20 10:15 07/29/20 10:14 Chlorhexidine Gluconate (Inna-Hex 2%) 1 applic DAILY@2000 TOPIC 05/30/20 20:00 08/28/20 19:59 07/03/20 20:13 Dextrose (Dextrose 50%) 25 ml Q30M PRN IV Hypoglycemia 06/05/20 10:45 09/03/20 10:44 Dextrose (Dextrose 50%) 50 ml Q30M PRN IV Hypoglycemia 06/05/20 10:45 09/03/20 10:44 Dextrose/Sodium Chloride 1,000 ml @ 50 mls/hr Q20H IV 06/24/20 16:30 07/24/20 16:29 07/03/20 20:00 Docusate Sodium (Colace) 100 mg Q12HR GT 06/07/20 21:00 07/07/20 20:59 07/03/20 20:13 Enoxaparin Sodium (Lovenox) 40 mg DAILY SUBQ 05/30/20 10:00 08/28/20 09:59 07/03/20 10:03 Fentanyl Citrate 250 ml @ 1 mls/hr Q24H IV 07/03/20 11:00 07/05/20 10:59 07/04/20 02:21 Furosemide (Lasix) 40 mg DAILY IV 06/22/20 09:00 07/22/20 08:59 07/03/20 10:02 Insulin Aspart (NovoLOG) EVERY 6 HOURS SUBQ 06/07/20 00:00 09/03/20 11:59 07/04/20 06:27 Midazolam HCl 100 mg/Sodium Chloride 200 ml @ 0 mls/hr Q24H PRN IV sedation 07/03/20 20:00 07/05/20 19:59 07/03/20 20:17 Midodrine (Pro-Amatine) 10 mg Q8HR GT 06/30/20 14:00 09/12/20 13:59 07/04/20 05:24 Polyethylene Glycol (Miralax) 17 gm BEDTIME GT 06/07/20 21:00 07/07/20 20:59 07/03/20 20:13 Vitamin D (Vitamin D) 5,000 unit DAILY GT 06/28/20 09:00 07/28/20 08:59 07/03/20 12:10 Last 24 Hour Vital Signs Date Time Temp Pulse Resp B/P (MAP) Pulse Ox O2 Delivery O2 Flow Rate FiO2 07/04/20 05:00 90 19 133/73 (93) 96 07/04/20 04:30 92 20 106/64 (78) 100 07/04/20 04:00 91 22 111/64 (80) 100 07/04/20 03:30 86 21 105/64 (78) 97 07/04/20 03:00 88 22 100/60 (73) 100 07/04/20 02:30 90 19 110/74 (86) 94 07/04/20 02:21 17 101/65 Mechanical Ventilator 70 07/04/20 02:00 85 18 96/59 (71) 100 07/04/20 01:30 87 17 99/60 (73) 98 07/04/20 01:20 87 16 70 07/04/20 01:00 86 17 96/65 (75) 95 07/04/20 00:30 88 18 99/59 (72) 99 07/04/20 00:00 87 07/04/20 00:00 17 Mechanical Ventilator 70 07/04/20 00:00 17 96/59 Mechanical Ventilator 70 07/04/20 00:00 Mechanical Ventilator Mechanical Ventilator 07/04/20 00:00 98.9 86 16 97/58 (71) 100 07/04/20 00:00 70 07/03/20 23:30 86 17 97/62 (74) 100 07/03/20 23:00 16 Mechanical Ventilator 70 07/03/20 23:00 17 93/57 Mechanical Ventilator 70 07/03/20 23:00 86 17 97/61 (73) 100 07/03/20 22:45 18 Mechanical Ventilator 70 07/03/20 22:30 87 16 92/57 (69) 100 07/03/20 22:30 17 Mechanical Ventilator 70 07/03/20 22:00 17 Non-Rebreather 70 07/03/20 22:00 17 87/56 Mechanical Ventilator 70 07/03/20 22:00 89 18 94/59 (71) 100 07/03/20 21:30 91 18 97/57 (70) 100 07/03/20 21:00 19 Mechanical Ventilator 70 07/03/20 21:00 18 93/60 Mechanical Ventilator 70 07/03/20 21:00 91 20 96/56 (69) 100 07/03/20 20:30 90 18 92/61 (71) 100 07/03/20 20:17 21 Mechanical Ventilator 70 07/03/20 20:00 70 07/03/20 20:00 21 97/58 Mechanical Ventilator 70 07/03/20 20:00 98.8 93 22 110/88 (95) 100 07/03/20 20:00 93 07/03/20 20:00 Mechanical Ventilator Mechanical Ventilator 07/03/20 19:30 88 18 95/59 (71) 98 07/03/20 19:23 90 15 70 07/03/20 19:00 19 97/58 Mechanical Ventilator 70 07/03/20 19:00 92 21 96/58 (71) 100 07/03/20 18:00 18 98/58 Endotracheal Tube 70 07/03/20 18:00 17 Endotracheal Tube 70 07/03/20 18:00 92 16 96/60 (72) 98 07/03/20 17:00 16 93/57 Endotracheal Tube 70 07/03/20 17:00 17 Endotracheal Tube 70 07/03/20 17:00 88 16 91/63 (72) 100 07/03/20 16:00 100 07/03/20 16:00 Mechanical Ventilator Mechanical Ventilator 07/03/20 16:00 97.6 91 20 100/63 (75) 96 07/03/20 16:00 16 100/63 Endotracheal Tube 70 07/03/20 16:00 17 Endotracheal Tube 70 07/03/20 16:00 70 07/03/20 15:21 93 17 70 07/03/20 15:00 93 19 92/59 (70) 99 07/03/20 15:00 19 92/59 Endotracheal Tube 70 07/03/20 15:00 19 Endotracheal Tube 70 07/03/20 14:00 18 91/59 Endotracheal Tube 70 07/03/20 14:00 18 70 07/03/20 14:00 98 17 91/59 (70) 99 07/03/20 13:47 92 16 70 07/03/20 13:00 17 102/61 Endotracheal Tube 70 07/03/20 13:00 17 Endotracheal Tube 70 07/03/20 13:00 97 18 102/61 (75) 99 07/03/20 12:00 70 07/03/20 12:00 19 106/68 Endotracheal Tube 70 07/03/20 12:00 27 Endotracheal Tube 30 07/03/20 12:00 98.3 99 22 108/74 (85) 97 07/03/20 12:00 96 07/03/20 12:00 Mechanical Ventilator Mechanical Ventilator 07/03/20 11:30 23 121/81 Endotracheal Tube 70 07/03/20 11:11 108 19 70 07/03/20 11:00 15 Endotracheal Tube 70 07/03/20 11:00 15 121/81 Endotracheal Tube 70 07/03/20 11:00 99 21 121/81 (94) 93 07/03/20 10:18 15 Endotracheal Tube 70 07/03/20 10:00 92 19 96/62 (73) 98 07/03/20 10:00 15 Endotracheal Tube 70 07/03/20 10:00 15 96/62 Endotracheal Tube 70 07/03/20 10:00 100 21 119/77 (91) 91 07/03/20 09:53 96 15 70 07/03/20 09:00 15 Endotracheal Tube 70 07/03/20 09:00 15 97/66 Endotracheal Tube 70 07/03/20 09:00 94 21 97/66 (76) 98 07/03/20 08:00 70 07/03/20 08:00 15 Endotracheal Tube 70 07/03/20 08:00 15 103/62 Endotracheal Tube 70 07/03/20 08:00 95 18 103/62 (76) 99 07/03/20 08:00 Mechanical Ventilator Mechanical Ventilator 07/03/20 08:00 94 07/03/20 08:00 98.9 07/03/20 07:24 91 15 70 07/03/20 07:00 99.6 92 15 94/58 (70) 98 07/03/20 07:00 15 Mechanical Ventilator 70 07/03/20 07:00 15 94/58 Mechanical Ventilator 70 07/03/20 06:30 92 15 07/03/20 06:00 100.3 98 17 95/60 (72) 97 07/03/20 06:00 17 Mechanical Ventilator 90 07/03/20 06:00 17 95/60 Mechanical Ventilator 90 07/03/20 05:00 96 18 94/56 (69) 97 07/03/20 05:00 18 Mechanical Ventilator 100 07/03/20 05:00 18 94/56 Mechanical Ventilator 70 07/03/20 04:00 97.6 98 17 92/54 (67) 94 07/03/20 04:00 70 07/03/20 04:00 17 Mechanical Ventilator 70 07/03/20 04:00 17 92/54 Mechanical Ventilator 70 07/03/20 04:00 Mechanical Ventilator Mechanical Ventilator 07/03/20 04:00 98 07/03/20 03:45 96 17 70 07/03/20 03:00 16 Mechanical Ventilator 90 07/03/20 03:00 16 102/63 Mechanical Ventilator 70 07/03/20 03:00 98 16 102/63 (76) 100 07/03/20 02:00 95 15 104/63 (77) 100 07/03/20 02:00 15 Mechanical Ventilator 70 07/03/20 02:00 15 104/63 Mechanical Ventilator 70 07/03/20 01:00 93 15 99/62 (74) 100 07/03/20 01:00 15 Mechanical Ventilator 70 07/03/20 01:00 15 99/62 Mechanical Ventilator 70 07/03/20 00:25 15 Mechanical Ventilator 70 07/03/20 00:00 Mechanical Ventilator Mechanical Ventilator 07/03/20 00:00 33 Mechanical Ventilator 70 07/03/20 00:00 33 138/68 Mechanical Ventilator 70 07/03/20 00:00 97.8 91 15 102/58 (73) 100 07/03/20 00:00 91 07/03/20 00:00 70 07/02/20 23:15 93 15 70 07/02/20 23:00 95 20 106/69 (81) 100 07/02/20 23:00 32 Mechanical Ventilator 70 07/02/20 23:00 32 120/62 Mechanical Ventilator 70 07/02/20 22:00 95 17 106/62 (77) 99 07/02/20 22:00 32 Mechanical Ventilator 70 07/02/20 22:00 32 121/66 Mechanical Ventilator 70 07/02/20 21:00 18 Mechanical Ventilator 70 07/02/20 21:00 18 91/58 Mechanical Ventilator 70 07/02/20 21:00 91 18 91/58 (69) 100 07/02/20 20:30 94 19 97/54 (68) 100 07/02/20 20:00 Mechanical Ventilator Mechanical Ventilator 07/02/20 20:00 97.6 94 18 104/61 (75) 100 07/02/20 20:00 18 Mechanical Ventilator 70 07/02/20 20:00 18 104/61 Mechanical Ventilator 70 07/02/20 20:00 70 07/02/20 19:36 92 07/02/20 19:35 93 17 70 07/02/20 19:00 91 15 95/59 (71) 100 07/02/20 18:59 15 90/55 Endotracheal Tube 70 07/02/20 18:30 90 16 94/58 (70) 100 07/02/20 18:00 90 16 97/66 (76) 100 07/02/20 18:00 17 Mechanical Ventilator 70 07/02/20 18:00 17 97/66 Mechanical Ventilator 70 07/02/20 17:30 90 15 101/55 (70) 100 07/02/20 17:00 16 Mechanical Ventilator 70 07/02/20 17:00 16 98/50 Mechanical Ventilator 70 07/02/20 17:00 90 15 98/50 (66) 100 07/02/20 16:30 90 16 100/49 (66) 100 07/02/20 16:00 Mechanical Ventilator Mechanical Ventilator 07/02/20 16:00 70 07/02/20 16:00 97.7 90 16 91/60 (70) 100 07/02/20 16:00 17 Mechanical Ventilator 70 07/02/20 16:00 17 91/60 Mechanical Ventilator 70 07/02/20 16:00 91 07/02/20 15:30 92 17 81/44 (56) 100 07/02/20 15:18 90 17 70 07/02/20 15:00 93 16 103/70 (81) 100 07/02/20 15:00 17 Mechanical Ventilator 70 07/02/20 15:00 17 103/70 Mechanical Ventilator 70 07/02/20 14:30 95 17 98/55 (69) 100 07/02/20 14:00 98 17 92/45 (61) 100 07/02/20 13:52 16 Mechanical Ventilator 07/02/20 13:30 98 17 89/47 (61) 99 07/02/20 13:00 98 18 104/50 (68) 99 07/02/20 12:30 103 24 123/76 (92) 90 07/02/20 12:00 97.6 95 22 104/86 (92) 95 07/02/20 12:00 70 07/02/20 12:00 Mechanical Ventilator Mechanical Ventilator 07/02/20 12:00 98 07/02/20 11:30 98 21 117/73 (88) 94 07/02/20 11:05 96 22 70 07/02/20 11:00 101 31 128/78 (95) 88 07/02/20 10:30 92 18 115/69 (84) 94 07/02/20 10:00 92 21 108/70 (83) 94 07/02/20 09:30 89 20 100/64 (76) 97 07/02/20 09:00 90 20 106/63 (77) 99 07/02/20 08:30 93 20 99/67 (78) 97 07/02/20 08:00 97.8 95 20 109/60 (76) 97 07/02/20 08:00 70 07/02/20 08:00 Mechanical Ventilator Mechanical Ventilator 07/02/20 08:00 100 07/02/20 07:30 95 22 100/55 (70) 96 07/02/20 07:24 91 23 70 07/02/20 07:00 94 21 92/67 (75) 94 07/02/20 07:00 21 70 07/02/20 07:00 21 97/63 Mechanical Ventilator 70 07/02/20 06:45 97 20 97 Intake and Output 07/03/20 07/04/20 19:00 07:00 Intake Total 1390 ml 612.08 ml Output Total 2210 ml 275 ml Balance -820 ml 337.08 ml Free Water 30 ml 120 ml IV Total 1000 ml 332.08 ml Tube Feeding 360 ml 160 ml Output Urine Total 2195 ml 275 ml Stool Total 15 ml Labs Test 07/01/20 09:55 07/02/20 04:16 07/02/20 08:20 07/03/20 03:30 Arterial Blood pH 7.373 (7.350-7.450) 7.361 (7.350-7.450) Arterial Blood Partial Pressure CO2 78.9 mmHg (35.0-45.0) 77.8 mmHg (35.0-45.0) Arterial Blood Partial Pressure O2 71.0 mmHg (75.0-100.0) 72.7 mmHg (75.0-100.0) Arterial Blood HCO3 44.9 mmol/L (22.0-26.0) 43.1 mmol/L (22.0-26.0) Arterial Blood Oxygen Saturation 93.5 % (95-100) 93.1 % (95-100) Arterial Blood Base Excess 17.0 (-2-2) 15.3 (-2-2) Jeremiah Test Positive Positive White Blood Count 7.4 K/UL (4.8-10.8) Red Blood Count 2.72 M/UL (4.20-5.40) Hemoglobin 8.1 G/DL (12.0-16.0) Hematocrit 25.3 % (37.0-47.0) Mean Corpuscular Volume 93 FL (80-99) Mean Corpuscular Hemoglobin 29.7 PG (27.0-31.0) Mean Corpuscular Hemoglobin Concent 31.9 G/DL (32.0-36.0) Red Cell Distribution Width 18.5 % (11.6-14.8) Platelet Count 214 K/UL (150-450) Mean Platelet Volume 7.7 FL (6.5-10.1) Neutrophils (%) (Auto) 68.4 % (45.0-75.0) Lymphocytes (%) (Auto) 20.9 % (20.0-45.0) Monocytes (%) (Auto) 6.0 % (1.0-10.0) Eosinophils (%) (Auto) 3.6 % (0.0-3.0) Basophils (%) (Auto) 1.1 % (0.0-2.0) Prothrombin Time 12.3 SEC (9.30-11.50) Prothromb Time International Ratio 1.1 (0.9-1.1) Activated Partial Thromboplast Time 28 SEC (23-33) Sodium Level 140 MMOL/L (136-145) Potassium Level 3.4 MMOL/L (3.5-5.1) Chloride Level 98 MMOL/L (98-107) Carbon Dioxide Level 42 MMOL/L (21-32) Anion Gap 0 mmol/L (5-15) Blood Urea Nitrogen 8 mg/dL (7-18) Creatinine 0.5 MG/DL (0.55-1.30) Estimat Glomerular Filtration Rate > 60 mL/min (>60) Glucose Level 124 MG/DL (74-106) Uric Acid 1.8 MG/DL (2.6-7.2) Calcium Level 9.0 MG/DL (8.5-10.1) Phosphorus Level 3.2 MG/DL (2.5-4.9) Magnesium Level 1.7 MG/DL (1.8-2.4) Total Bilirubin 1.4 MG/DL (0.2-1.0) Direct Bilirubin 0.3 MG/DL (0.0-0.3) Aspartate Amino Transf (AST/SGOT) 37 U/L (15-37) Alanine Aminotransferase (ALT/SGPT) 23 U/L (12-78) Alkaline Phosphatase 82 U/L (46-116) Total Protein 7.0 G/DL (6.4-8.2) Albumin 2.4 G/DL (3.4-5.0) Stool Occult Blood Negative (NEGATIVE) Test 07/03/20 06:03 07/04/20 04:40 White Blood Count 5.2 K/UL (4.8-10.8) 6.1 K/UL (4.8-10.8) Red Blood Count 2.86 M/UL (4.20-5.40) 3.03 M/UL (4.20-5.40) Hemoglobin 8.2 G/DL (12.0-16.0) 8.8 G/DL (12.0-16.0) Hematocrit 27.1 % (37.0-47.0) 29.0 % (37.0-47.0) Mean Corpuscular Volume 95 FL (80-99) 96 FL (80-99) Mean Corpuscular Hemoglobin 28.6 PG (27.0-31.0) 28.9 PG (27.0-31.0) Mean Corpuscular Hemoglobin Concent 30.2 G/DL (32.0-36.0) 30.2 G/DL (32.0-36.0) Red Cell Distribution Width 18.2 % (11.6-14.8) 18.8 % (11.6-14.8) Platelet Count 212 K/UL (150-450) 225 K/UL (150-450) Mean Platelet Volume 7.6 FL (6.5-10.1) 8.4 FL (6.5-10.1) Neutrophils (%) (Auto) 58.6 % (45.0-75.0) 56.6 % (45.0-75.0) Lymphocytes (%) (Auto) 26.9 % (20.0-45.0) 27.7 % (20.0-45.0) Monocytes (%) (Auto) 8.0 % (1.0-10.0) 9.2 % (1.0-10.0) Eosinophils (%) (Auto) 5.5 % (0.0-3.0) 5.5 % (0.0-3.0) Basophils (%) (Auto) 1.0 % (0.0-2.0) 1.1 % (0.0-2.0) Sodium Level 142 MMOL/L (136-145) 142 MMOL/L (136-145) Potassium Level 3.3 MMOL/L (3.5-5.1) 3.5 MMOL/L (3.5-5.1) Chloride Level 99 MMOL/L (98-107) 98 MMOL/L (98-107) Carbon Dioxide Level 43 MMOL/L (21-32) 44 MMOL/L (21-32) Blood Urea Nitrogen 10 mg/dL (7-18) 11 mg/dL (7-18) Creatinine 0.5 MG/DL (0.55-1.30) 0.4 MG/DL (0.55-1.30) Estimat Glomerular Filtration Rate > 60 mL/min (>60) > 60 mL/min (>60) Glucose Level 102 MG/DL (74-106) 126 MG/DL (74-106) Calcium Level 9.2 MG/DL (8.5-10.1) 9.2 MG/DL (8.5-10.1) Phosphorus Level 3.5 MG/DL (2.5-4.9) 3.9 MG/DL (2.5-4.9) Magnesium Level 2.0 MG/DL (1.8-2.4) 1.7 MG/DL (1.8-2.4) Total Bilirubin 1.5 MG/DL (0.2-1.0) 1.7 MG/DL (0.2-1.0) Direct Bilirubin 0.3 MG/DL (0.0-0.3) 0.3 MG/DL (0.0-0.3) Aspartate Amino Transf (AST/SGOT) 32 U/L (15-37) 32 U/L (15-37) Alanine Aminotransferase (ALT/SGPT) 23 U/L (12-78) 23 U/L (12-78) Alkaline Phosphatase 78 U/L (46-116) 79 U/L (46-116) C-Reactive Protein, Quantitative 6.1 mg/dL (0.00-0.90) Pro-B-Type Natriuretic Peptide 1026 pg/mL (0-125) Total Protein 7.0 G/DL (6.4-8.2) 7.3 G/DL (6.4-8.2) Albumin 2.4 G/DL (3.4-5.0) 2.3 G/DL (3.4-5.0) Globulin 4.6 g/dL 5.0 g/dL Albumin/Globulin Ratio 0.5 (1.0-2.7) 0.5 (1.0-2.7) Anion Gap 1 mmol/L (5-15) Height (Feet): 5 Height (Inches): 6.00 Weight (Pounds): 239 Objective GeNL: nv Pulm: vent++ CV: rrr Abd: soft, nt, nd Ext: no cce Myron Condon MD Jul 04, 2020 06:35
[2020-07-04 07:37] LABS: INR 1.1 (0.9-1.1)
[2020-07-04] MEDS: Docusate 100mg/10ml Liq GT SCH ×2 (08:09→21:01)
[2020-07-04] MEDS: Vitamin D 1000 units Tab GT SCH (08:09)
[2020-07-04] MEDS: Enoxaparin 40mg Inj SUBQ SCH (08:10)
[2020-07-04] MEDS: Midazolam HCl 50mg/10ml vial 100 MG in NS 180 ML IV PRN ×2 (08:24→21:15)
--- NOTE | 2020-07-04 08:30 | NUR ---
NURSE HAND-OFF REPORT: Latest Vital Signs: Temperature 98.7 , Pulse 96 , B/P 123 /77 , Respiratory Rate 29 , O2 SAT 100 , Mechanical Ventilator, O2 Flow Rate . Vital Sign Comment: stable EKG Rhythm: Sinus Rhythm Rhythm change?: Jesus TOLLIVER Notified?: Babs EDWARDS MD Response: Latest Meyers Fall Score: 70 Fall Risk: High Risk Safety Measures: Call light Within Reach, Bed Alarm Zone 1, Side Rails Side Rails x2, Bed position Low and Locked. Fall Precautions: Yellow Socks Report given to RAKEL Holly.
[2020-07-04] MEDS ORDERED: fentaNYL 100 mcg/2 mL IV ONE (09:35)
--- NOTE | 2020-07-04 09:43 | Anethesia Preoperative Eval ---
Anesthesia Pre-op PMH/ROS General Date of Evaluation: Jul 04, 2020 Time of Evaluation: 09:00 Anesthesiologist: herb ASA Score: ASA 4 Mallampati Score Class I : Soft palate, uvula, fauces, pillars visible Class II: Soft palate, uvula, fauces visible Class III: Soft palate, base of uvula visible Class IV: Only hard plate visible Mallampati Classification: Class III Surgeon: Gregg Diagnosis: Resp Failure Surgical Procedure: Tracheostomy Anesthesia History: none Family History: no anesthesia problems Allergies: Coded Allergies: No Known Allergies (Unverified , 05/28/20) Medications: see eMAR Patient NPO?: Yes NPO Date: Jul 04, 2020 NPO Time: 00:01 Past Medical History Cardiovascular: Denies: HTN, CAD, NM, valve dz, arrhythmia, other Pulmonary: Reports: other - Resp Failure; covid positive; pna; Denies: asthma, COPD, BINTA Gastrointestinal/Genitourinary: Reports: GERD Neurologic/Psychiatric: Denies: dementia, CVA, depression/anxiety, TIA, other Endocrine: Reports: DM; Denies: hypothyroidism, steroids, other HEENT: Denies: cataract (L), cataract (R), glaucoma, SKAGWAY (L), SKAGWAY (R), other Hematology/Immune: Reports: anemia Musculoskeletal/Integumentary: Denies: OA, RA, DJD, DDD, edema, other Other: obesity PMH Narrative: resp failure with covid positive pna; failure to wean PSxH Narrative: unknown Anesthesia Pre-op Phys. Exam Physician Exam Last Vital Signs Date Time Temp Pulse Resp B/P (MAP) Pulse Ox O2 Delivery O2 Flow Rate FiO2 07/04/20 08:24 29 Mechanical Ventilator 70 07/04/20 08:00 123/77 07/04/20 08:00 98.7 96 100 Constitutional: other - resp failure Neurologic: other Cardiovascular: RRR Respiratory: other - mech ventilation Gastrointestinal: S/NT/ND Airway Exam Mallampati Classification na Mallampati Score: Class III MO: limited ROM: limited Dentures: no upper, no lower Anesthesia Pre-op A/P Labs Hematology Test 07/04/20 04:40 White Blood Count 6.1 K/UL (4.8-10.8) Red Blood Count 3.03 M/UL (4.20-5.40) L Hemoglobin 8.8 G/DL (12.0-16.0) L Hematocrit 29.0 % (37.0-47.0) L Mean Corpuscular Volume 96 FL (80-99) Mean Corpuscular Hemoglobin 28.9 PG (27.0-31.0) Mean Corpuscular Hemoglobin Concent 30.2 G/DL (32.0-36.0) L Red Cell Distribution Width 18.8 % (11.6-14.8) H Platelet Count 225 K/UL (150-450) Mean Platelet Volume 8.4 FL (6.5-10.1) Neutrophils (%) (Auto) 56.6 % (45.0-75.0) Lymphocytes (%) (Auto) 27.7 % (20.0-45.0) Monocytes (%) (Auto) 9.2 % (1.0-10.0) Eosinophils (%) (Auto) 5.5 % (0.0-3.0) H Basophils (%) (Auto) 1.1 % (0.0-2.0) Coagulation Test 07/04/20 07:19 Prothrombin Time 11.7 SEC (9.30-11.50) H Prothromb Time International Ratio 1.1 (0.9-1.1) Activated Partial Thromboplast Time 27 SEC (23-33) Chemistry Test 07/04/20 04:40 Sodium Level 142 MMOL/L (136-145) Potassium Level 3.5 MMOL/L (3.5-5.1) Chloride Level 98 MMOL/L (98-107) Carbon Dioxide Level 44 MMOL/L (21-32) *H Anion Gap 1 mmol/L (5-15) L Blood Urea Nitrogen 11 mg/dL (7-18) Creatinine 0.4 MG/DL (0.55-1.30) L Estimat Glomerular Filtration Rate > 60 mL/min (>60) Glucose Level 126 MG/DL (74-106) H Calcium Level 9.2 MG/DL (8.5-10.1) Phosphorus Level 3.9 MG/DL (2.5-4.9) Magnesium Level 1.7 MG/DL (1.8-2.4) L Total Bilirubin 1.7 MG/DL (0.2-1.0) H Direct Bilirubin 0.3 MG/DL (0.0-0.3) Aspartate Amino Transf (AST/SGOT) 32 U/L (15-37) Alanine Aminotransferase (ALT/SGPT) 23 U/L (12-78) Alkaline Phosphatase 79 U/L (46-116) Total Protein 7.3 G/DL (6.4-8.2) Albumin 2.3 G/DL (3.4-5.0) L Globulin 5.0 g/dL Albumin/Globulin Ratio 0.5 (1.0-2.7) L Studies Pre-op Studies: EKG - SR Risk Assessment & Plan Assessment: deferred till morning of procedure Plan: General Status Change Before Surgery: No Pre-Antibiotics Drug: see chart Jaci Yeager CRNA Jul 04, 2020 09:43
[2020-07-04] MEDS ORDERED: Rocuronium Bromide 50mg/5ml Inj IV ONE ×2 (09:45→11:29)
[2020-07-04] MEDS ORDERED: Lidocaine 2% 20mg/ml/Epi 0.005mg/ml 20ml vial ONE (09:59)
--- NOTE | 2020-07-04 10:07 | Anethesia Preoperative Eval ---
Anesthesia Pre-op PMH/ROS General Date of Evaluation: Jul 04, 2020 Time of Evaluation: 10:03 Anesthesiologist: Wilder ASA Score: ASA 3 Mallampati Score Class I : Soft palate, uvula, fauces, pillars visible Class II: Soft palate, uvula, fauces visible Class III: Soft palate, base of uvula visible Class IV: Only hard plate visible Mallampati Classification: Class III Surgeon: Blossom Diagnosis: Respiatiry failure Surgical Procedure: Tracheostomy Anesthesia History: none Family History: no anesthesia problems Allergies: Coded Allergies: No Known Allergies (Unverified , 05/28/20) Medications: see eMAR Patient NPO?: Yes NPO Date: Jul 04, 2020 NPO Time: 00:01 Past Medical History Cardiovascular: Reports: HTN; Denies: CAD, IA, valve dz, arrhythmia, other Pulmonary: Reports: other - Covid pneumonia, respiratory failure; Denies: asthma, COPD, BINTA Gastrointestinal/Genitourinary: Reports: GERD Neurologic/Psychiatric: Reports: depression/anxiety; Denies: dementia, CVA, TIA, other Endocrine: Reports: DM; Denies: hypothyroidism, steroids, other HEENT: Denies: cataract (L), cataract (R), glaucoma, [place] (L), [place] (R), other Hematology/Immune: Denies: anemia, DVT, bleeding disorder, other Musculoskeletal/Integumentary: Denies: OA, RA, DJD, DDD, edema, other Other: obesity - morbid obesity PMH Narrative: as above PSxH Narrative: see H&P Anesthesia Pre-op Phys. Exam Physician Exam Last Vital Signs Date Time Temp Pulse Resp B/P (MAP) Pulse Ox O2 Delivery O2 Flow Rate FiO2 07/04/20 09:00 98 20 120/74 (89) 97 07/04/20 09:00 Endotracheal Tube 70 07/04/20 08:00 98.7 Constitutional: NAD Neurologic: other - unable to obtaine Cardiovascular: RRR, no M/R/G Respiratory: other - diminished breath sounds Gastrointestinal: other - obesity Airway Exam Mallampati Score: Class III MO: limited Neck: short ROM: limited Teeth: missing Dentures: no upper, no lower Anesthesia Pre-op A/P Labs Hematology Test 07/04/20 04:40 White Blood Count 6.1 K/UL (4.8-10.8) Red Blood Count 3.03 M/UL (4.20-5.40) L Hemoglobin 8.8 G/DL (12.0-16.0) L Hematocrit 29.0 % (37.0-47.0) L Mean Corpuscular Volume 96 FL (80-99) Mean Corpuscular Hemoglobin 28.9 PG (27.0-31.0) Mean Corpuscular Hemoglobin Concent 30.2 G/DL (32.0-36.0) L Red Cell Distribution Width 18.8 % (11.6-14.8) H Platelet Count 225 K/UL (150-450) Mean Platelet Volume 8.4 FL (6.5-10.1) Neutrophils (%) (Auto) 56.6 % (45.0-75.0) Lymphocytes (%) (Auto) 27.7 % (20.0-45.0) Monocytes (%) (Auto) 9.2 % (1.0-10.0) Eosinophils (%) (Auto) 5.5 % (0.0-3.0) H Basophils (%) (Auto) 1.1 % (0.0-2.0) Coagulation Test 07/04/20 07:19 Prothrombin Time 11.7 SEC (9.30-11.50) H Prothromb Time International Ratio 1.1 (0.9-1.1) Activated Partial Thromboplast Time 27 SEC (23-33) Chemistry Test 07/04/20 04:40 Sodium Level 142 MMOL/L (136-145) Potassium Level 3.5 MMOL/L (3.5-5.1) Chloride Level 98 MMOL/L (98-107) Carbon Dioxide Level 44 MMOL/L (21-32) *H Anion Gap 1 mmol/L (5-15) L Blood Urea Nitrogen 11 mg/dL (7-18) Creatinine 0.4 MG/DL (0.55-1.30) L Estimat Glomerular Filtration Rate > 60 mL/min (>60) Glucose Level 126 MG/DL (74-106) H Calcium Level 9.2 MG/DL (8.5-10.1) Phosphorus Level 3.9 MG/DL (2.5-4.9) Magnesium Level 1.7 MG/DL (1.8-2.4) L Total Bilirubin 1.7 MG/DL (0.2-1.0) H Direct Bilirubin 0.3 MG/DL (0.0-0.3) Aspartate Amino Transf (AST/SGOT) 32 U/L (15-37) Alanine Aminotransferase (ALT/SGPT) 23 U/L (12-78) Alkaline Phosphatase 79 U/L (46-116) Total Protein 7.3 G/DL (6.4-8.2) Albumin 2.3 G/DL (3.4-5.0) L Globulin 5.0 g/dL Albumin/Globulin Ratio 0.5 (1.0-2.7) L Risk Assessment & Plan Assessment: ASA 3 Plan: GA with ETT Status Change Before Surgery: No Pre-Antibiotics Drug: Ancef 2gr Given Within 1 Hr of Incision: Yes Jeremy Hdz MD Jul 04, 2020 10:07
[2020-07-04] MEDS ORDERED: Phytonadione 10 mg/mL 1ml amp SUBQ SCH (10:30)
[2020-07-04] MEDS ORDERED: Sodium Bicarbonate 4% 2.4meq/5ml vial IV PRN (10:45)
[2020-07-04] MEDS ORDERED: Lidocaine 1% Plain 30 ml INJ PRN (10:45)
[2020-07-04] MEDS ORDERED: Sterile Water Irrig 1000ml IRRIG ONE (11:00)
[2020-07-04] MEDS ORDERED: NS Irrig 1000ml ONE (11:00)
[2020-07-04] MEDS ORDERED: D5NS 1000ml IV ONE (11:00)
--- NOTE | 2020-07-04 11:19 | NUR ---
Pt was transported to OR by this RN, respiratory, transport. Report was given to Mauvria. POOLE prior to departure. Care continues.
--- NOTE | 2020-07-04 11:20 | NUR ---
RESPIRATORY NOTE: Pt transported to OR for tracheostomy with RT, RN, and surgery transport. No s/s of distress noted. Will continue plan of care.
--- NOTE | 2020-07-04 11:20 | Pulmonology Progress Note ---
Subjective ROS Limited/Unobtainable: Yes Interval Events: Remains intubated Constitutional: Denies: fever HEENT: Repors: no symptoms Respiratory: Reports: no symptoms Cardiovascular: Reports: no symptoms Gastrointestinal/Abdominal: Reports: no symptoms Genitourinary: Reports: no symptoms Allergies: Coded Allergies: No Known Allergies (Unverified , 05/28/20) All Systems: reviewed and negative except above Objective Last 24 Hour Vital Signs Date Time Temp Pulse Resp B/P (MAP) Pulse Ox O2 Delivery O2 Flow Rate FiO2 07/04/20 10:00 18 Endotracheal Tube 70 07/04/20 10:00 17 123/78 70 07/04/20 10:00 99 28 123/78 (93) 91 07/04/20 09:00 98 20 120/74 (89) 97 07/04/20 09:00 21 Endotracheal Tube 70 07/04/20 09:00 21 128/78 Endotracheal Tube 70 07/04/20 08:24 29 Mechanical Ventilator 70 07/04/20 08:00 100 07/04/20 08:00 Mechanical Ventilator Mechanical Ventilator 07/04/20 08:00 20 123/77 Mechanical Ventilator 70 07/04/20 08:00 70 07/04/20 08:00 98.7 96 20 123/77 (92) 100 07/04/20 07:30 97 20 115/95 (102) 97 07/04/20 07:00 95 21 120/86 (97) 99 07/04/20 07:00 24 Mechanical Ventilator 70 07/04/20 07:00 24 125/85 Mechanical Ventilator 70 07/04/20 07:00 98 21 70 07/04/20 06:45 22 Mechanical Ventilator 70 07/04/20 06:45 22 120/86 Mechanical Ventilator 70 07/04/20 06:30 20 Mechanical Ventilator 70 07/04/20 06:30 20 118/76 Mechanical Ventilator 70 07/04/20 06:30 97 12 07/04/20 06:30 97 12 131/69 (89) 95 07/04/20 06:15 22 Mechanical Ventilator 70 07/04/20 06:15 22 131/69 Mechanical Ventilator 70 07/04/20 06:00 20 Mechanical Ventilator 70 07/04/20 06:00 20 124/77 Mechanical Ventilator 70 07/04/20 06:00 100 21 123/80 (94) 89 07/04/20 05:30 91 20 118/71 (87) 100 07/04/20 05:00 19 Mechanical Ventilator 70 07/04/20 05:00 19 106/65 Mechanical Ventilator 70 07/04/20 05:00 90 19 133/73 (93) 96 07/04/20 04:30 92 20 106/64 (78) 100 07/04/20 04:00 70 07/04/20 04:00 22 70 07/04/20 04:00 22 107/70 Mechanical Ventilator 70 07/04/20 04:00 98.8 91 22 111/64 (80) 100 07/04/20 04:00 Mechanical Ventilator Mechanical Ventilator 07/04/20 04:00 88 07/04/20 03:30 86 21 105/64 (78) 97 07/04/20 03:00 20 Mechanical Ventilator 70 07/04/20 03:00 20 102/62 Mechanical Ventilator 70 07/04/20 03:00 88 22 100/60 (73) 100 07/04/20 02:30 90 19 110/74 (86) 94 07/04/20 02:21 17 101/65 Mechanical Ventilator 70 07/04/20 02:00 85 18 96/59 (71) 100 07/04/20 02:00 19 70 07/04/20 02:00 19 88/57 Mechanical Ventilator 70 07/04/20 01:30 87 17 99/60 (73) 98 07/04/20 01:20 87 16 70 07/04/20 01:00 86 17 96/65 (75) 95 07/04/20 01:00 18 Mechanical Ventilator 70 07/04/20 01:00 18 95/57 Mechanical Ventilator 70 07/04/20 00:30 88 18 99/59 (72) 99 07/04/20 00:00 87 07/04/20 00:00 17 Mechanical Ventilator 70 07/04/20 00:00 17 96/59 Mechanical Ventilator 70 07/04/20 00:00 Mechanical Ventilator Mechanical Ventilator 07/04/20 00:00 98.9 86 16 97/58 (71) 100 07/04/20 00:00 70 07/03/20 23:30 86 17 97/62 (74) 100 07/03/20 23:00 16 Mechanical Ventilator 70 07/03/20 23:00 17 93/57 Mechanical Ventilator 70 07/03/20 23:00 86 17 97/61 (73) 100 07/03/20 22:45 18 Mechanical Ventilator 70 07/03/20 22:30 87 16 92/57 (69) 100 07/03/20 22:30 17 Mechanical Ventilator 70 07/03/20 22:00 17 Non-Rebreather 70 07/03/20 22:00 17 87/56 Mechanical Ventilator 70 07/03/20 22:00 89 18 94/59 (71) 100 07/03/20 21:30 91 18 97/57 (70) 100 07/03/20 21:00 19 Mechanical Ventilator 70 07/03/20 21:00 18 93/60 Mechanical Ventilator 70 07/03/20 21:00 91 20 96/56 (69) 100 07/03/20 20:30 90 18 92/61 (71) 100 07/03/20 20:17 21 Mechanical Ventilator 70 07/03/20 20:00 70 07/03/20 20:00 21 97/58 Mechanical Ventilator 70 07/03/20 20:00 98.8 93 22 110/88 (95) 100 07/03/20 20:00 93 07/03/20 20:00 Mechanical Ventilator Mechanical Ventilator 07/03/20 19:30 88 18 95/59 (71) 98 07/03/20 19:23 90 15 70 07/03/20 19:00 19 97/58 Mechanical Ventilator 70 07/03/20 19:00 92 21 96/58 (71) 100 07/03/20 18:00 18 98/58 Endotracheal Tube 70 07/03/20 18:00 17 Endotracheal Tube 70 07/03/20 18:00 92 16 96/60 (72) 98 07/03/20 17:00 16 93/57 Endotracheal Tube 70 07/03/20 17:00 17 Endotracheal Tube 70 07/03/20 17:00 88 16 91/63 (72) 100 07/03/20 16:00 100 07/03/20 16:00 Mechanical Ventilator Mechanical Ventilator 07/03/20 16:00 97.6 91 20 100/63 (75) 96 07/03/20 16:00 16 100/63 Endotracheal Tube 70 07/03/20 16:00 17 Endotracheal Tube 70 07/03/20 16:00 70 07/03/20 15:21 93 17 70 07/03/20 15:00 93 19 92/59 (70) 99 07/03/20 15:00 19 92/59 Endotracheal Tube 70 07/03/20 15:00 19 Endotracheal Tube 70 07/03/20 14:00 18 91/59 Endotracheal Tube 70 07/03/20 14:00 18 70 07/03/20 14:00 98 17 91/59 (70) 99 07/03/20 13:47 92 16 70 07/03/20 13:00 17 102/61 Endotracheal Tube 70 07/03/20 13:00 17 Endotracheal Tube 70 07/03/20 13:00 97 18 102/61 (75) 99 07/03/20 12:00 70 07/03/20 12:00 19 106/68 Endotracheal Tube 70 07/03/20 12:00 27 Endotracheal Tube 30 07/03/20 12:00 98.3 99 22 108/74 (85) 97 07/03/20 12:00 96 07/03/20 12:00 Mechanical Ventilator Mechanical Ventilator 07/03/20 11:30 23 121/81 Endotracheal Tube 70 Intake and Output 07/03/20 07/04/20 19:00 07:00 Intake Total 1390 ml 1243.33 ml Output Total 2210 ml 475 ml Balance -820 ml 768.33 ml Free Water 30 ml 120 ml IV Total 1000 ml 963.33 ml Tube Feeding 360 ml 160 ml Output Urine Total 2195 ml 475 ml Stool Total 15 ml General Appearance: no acute distress HEENT: normocephalic Respiratory: chest wall non-tender Cardiovascular: normal peripheral pulses Abdomen: normal bowel sounds Laboratory Tests 07/04/20 04:40: White Blood Count 6.1, Red Blood Count 3.03L, Hemoglobin 8.8L, Hematocrit 29.0L, Mean Corpuscular Volume 96, Mean Corpuscular Hemoglobin 28.9, Mean Corpuscular Hemoglobin Concent 30.2L, Red Cell Distribution Width 18.8H, Platelet Count 225, Mean Platelet Volume 8.4, Neutrophils (%) (Auto) 56.6, Lymphocytes (%) (Auto) 27.7, Monocytes (%) (Auto) 9.2, Eosinophils (%) (Auto) 5.5H, Basophils (%) (Auto) 1.1, Sodium Level 142, Potassium Level 3.5, Chloride Level 98, Carbon Dioxide Level 44*H, Anion Gap 1L, Blood Urea Nitrogen 11, Creatinine 0.4L, Estimat Glomerular Filtration Rate > 60, Glucose Level 126H, Calcium Level 9.2, Phosphorus Level 3.9, Magnesium Level 1.7L, Total Bilirubin 1.7H, Direct B ilirubin 0.3, Aspartate Amino Transf (AST/SGOT) 32, Alanine Aminotransferase (ALT/SGPT) 23, Alkaline Phosphatase 79, Total Protein 7.3, Albumin 2.3L, Globulin 5.0, Albumin/Globulin Ratio 0.5L 07/04/20 07:19: Prothrombin Time 11.7H, Prothromb Time International Ratio 1.1, Activated Partial Thromboplast Time 27 07/04/20 09:37: Arterial Blood pH 7.351, Arterial Blood Partial Pressure CO2 79.4*H, Arterial Blood Partial Pressure O2 58.9L, Arterial Blood HCO3 42.9*H, Arterial Blood Oxygen Saturation 87.6*L, Arterial Blood Base Excess 14.9*H, Jeremiah Test Positive Current Medications Medications (Trade) Dose Ordered Sig/Zelda Route PRN Reason Start Time Stop Time Status Last Admin Dose Admin Acetaminophen (Tylenol) 650 mg Q4H PRN NG Temp >100.5 06/29/20 10:15 07/29/20 10:14 07/02/20 00:53 Acetaminophen (Tylenol) 650 mg Q6H PRN NG Mild Pain (Pain Scale 1-3) 06/29/20 10:15 07/29/20 10:14 Chlorhexidine Gluconate (Inna-Hex 2%) 1 applic DAILY@2000 TOPIC 05/30/20 20:00 08/28/20 19:59 07/03/20 20:13 Dextrose (Dextrose 50%) 25 ml Q30M PRN IV Hypoglycemia 06/05/20 10:45 09/03/20 10:44 Dextrose (Dextrose 50%) 50 ml Q30M PRN IV Hypoglycemia 06/05/20 10:45 09/03/20 10:44 Dextrose/Sodium Chloride 1,000 ml @ 50 mls/hr Q20H IV 06/24/20 16:30 07/24/20 16:29 07/03/20 20:00 Docusate Sodium (Colace) 100 mg Q12HR GT 06/07/20 21:00 07/07/20 20:59 07/03/20 20:13 Enoxaparin Sodium (Lovenox) 40 mg DAILY SUBQ 05/30/20 10:00 08/28/20 09:59 07/03/20 10:03 Fentanyl Citrate 250 ml @ 1 mls/hr Q24H IV 07/03/20 11:00 07/05/20 10:59 07/04/20 02:21 Furosemide (Lasix) 40 mg DAILY IV 06/22/20 09:00 07/22/20 08:59 07/03/20 10:02 Insulin Aspart (NovoLOG) EVERY 6 HOURS SUBQ 06/07/20 00:00 09/03/20 11:59 07/04/20 06:27 Lidocaine HCl (Xylocaine 1% 30ml) 30 ml NOW PRN INJ Radiology Procedure 07/04/20 10:45 07/07/20 10:44 Magnesium Sulfate 100 ml @ 100 mls/hr Q1H IVPB 07/04/20 08:00 07/04/20 11:59 07/04/20 10:15 Midazolam HCl 100 mg/Sodium Chloride 200 ml @ 0 mls/hr Q24H PRN IV sedation 07/03/20 20:00 07/05/20 19:59 07/04/20 08:24 Midodrine (Pro-Amatine) 10 mg Q8HR GT 06/30/20 14:00 09/12/20 13:59 07/04/20 05:24 Phytonadione (Vitamin K) 10 mg ONCE SUBQ 07/04/20 10:30 07/04/20 12:30 07/04/20 10:58 Polyethylene Glycol (Miralax) 17 gm BEDTIME GT 06/07/20 21:00 07/07/20 20:59 07/03/20 20:13 Sodium Bicarbonate (Sodium Bicarbonate 4%) 1 ml NOW PRN IV Radiology Procedure 07/04/20 10:45 07/07/20 10:44 Vitamin D (Vitamin D) 5,000 unit DAILY GT 06/28/20 09:00 07/28/20 08:59 07/03/20 12:10 Assessment/Plan Assessment/Plan 1. COVID-19 pneumonia -Intubated 05/28/20 - We will continue broad-spectrum antibiotics. -s/p solumedrol, Rocephin -Continue PEEP 6 ->7 - Peak airway pressures high; 45 - FiO2 100% -> 90 ->80->60 ->40 ->80 ->100 ->80 -70%; -will continue OGT feeding -Continue sedation; Need to keep patient completely sedated. 2. Hyponatremia -Per primary MD 3. Elevated inflammatory markers - has high D dimer; Lovenox on hold due to hematuria 4. Decrease PEEP Continue weaning efforts May need trach Discussed with surgery Now down to 70 FiO2 ; PEEP 7 WIll request surgery for trach Long discussion with family who wish to wean her off the oxygen eventually instead of trach. Trach if "necessary" per family. Discussed with nichon. She was advised regarding poor prognosis. Discussed with RN. Noted bioethics evaluation. For trach today Javier Nava MD Jul 04, 2020 11:20
--- NOTE | 2020-07-04 12:10 | Immediate Post-Op Evaluation ---
Immediate Post-Op Evalulation Immediate Post-Op Evalulation Procedure: Tracheostomy Date of Evaluation: Jul 04, 2020 Time of Evaluation: 12:09 IV Fluids: 150 Blood Products: none Estimated Blood Loss: min Urinary Output: none Blood Pressure Systolic: 136 Blood Pressure Diastolic: 78 Pulse Rate: 98 Respiratory Rate: 22 O2 Sat by Pulse Oximetry: 92 Temperature (Fahrenheit): 97.5 Pain Score (1-10): 1 Nausea: No Vomiting: No Complications none Patient Status: no response, ventilated, none Hydration Status: adequate Jeremy Hdz MD Jul 04, 2020 12:10
--- NOTE | 2020-07-04 12:12 | NUR ---
RESPIRATORY NOTE: Received pt from OR post tracheostomy. Pt is trached with a Shiley #8 XLT. Placed pt back on previous ordered ventilator settings AC 15, 600, +7. 100% fio2. Will titrate Fio2 as appropriate. Pt is sedated. No s/s of distress is noted. Will continue to monitor and follow plan of care.
--- NOTE | 2020-07-04 12:41 | Nephrology Progress Note ---
Assessment/Plan Problem List: (1) DEVENDRA (acute kidney injury) (2) Morbid obesity (3) Diabetes mellitus out of control (4) Pneumonia due to COVID-19 virus (5) Respiratory failure Assessment Acute renal failure Obstructive uropathy, clogged Lennon Respiratory failure COVID-19 pneumonia Morbid obesity Plan July 04: Patient now trach. Full code. Labs reviewed. Renal parameters stable. Low magnesium addressed. July 03: Intubated. Full code. Labs reviewed. Abnormal electrolytes addressed. Continue per consultants. Overall status unchanged. July 02: Remains intubated. Remains full code. Remains on FiO2 of 70%. Labs reviewed. Abnormal electrolytes addressed. Continue per pulmonary. July 01: Remains on 70% FiO2. Full code. Intubated on ventilator. Retaining CO2. Discussed with RN. Will do ABG today. Albumin bolus given. 1 dose of Diamox given. June 30: Status quo. Labs reviewed. Abnormal electrolytes addressed. Remains full code. Remains on ventilator. Magnesium sulfate 4 gram IVPB given. June 29: Full code. Intubated on ventilator. Labs reviewed. Stable from renal standpoint of view. Continue per consultants. June 28: Remains full code. Remains intubated on ventilator. Labs reviewed. Vitamin D supplement ordered. Continue to monitor renal parameters. Continue per consultants. June 27: Remains full code. Intubated on ventilator. Labs reviewed. Abnormal electrolyte addressed. Continue to monitor renal parameters and electrolytes. Continue per consultants. June 26: Labs reviewed. Remains full code. Remains intubated. Back on NGT feeding. Continue to monitor renal parameters. June 25: Labs reviewed. Renal parameters stable. Remains full code. Due to positional status patient could not be fed via NG tube. Starting TPN? Is being entertained. Continue per consultants. June 24: Labs reviewed. Renal parameters stable. Remains full code. Remains intubated on ventilator. Continue per consultants. June 23: Labs reviewed. Renal parameters stable. Discussed with RN. Abnormal electrolyte addressed. Remains full code. Remains on ventilator. Continue per consultants. June 22: Labs reviewed. Low potassium addressed. Discussed with RAKEL Moran. Patient full code. Remains on ventilator. Continue to monitor renal parameters. June 21. Labs reviewed. Abnormal electrolyte addressed. Full code. Remains on ventilator. Medication list reviewed. Continue per pulmonary management. DC IV fluid, resume Lasix daily, check chest x-ray. June 20: Labs reviewed. Abnormal electrolytes. Patient remains full code. Continue per consultants. Noted and addressed June 19: Labs reviewed. Abnormal electrolytes noted and addressed. Remains intubated on ventilator. Remains full code. June 18: Labs reviewed. Remains intubated on ventilator. Full code. Abnormal electrolyte addressed. Continue as is. June 17: Labs reviewed. Abnormal electrolytes addressed. Patient remains full code and intubated on ventilator. Continue per consultants. Renal parameters are within normal limits. June 16: Labs reviewed. Potassium chloride replaced. Remains full code. Remains intubated on ventilator. Continue per consultants. Continue to monitor renal parameters. June 15: Labs reviewed. Serum creatinine 1. Stable from renal standpoint to view. Continue per consultants. June 14: Labs reviewed. Full code. Serum creatinine of 3.5 down to 1.4. Low potassium addressed. Continue per current treatment plan. Continue to monitor renal parameters. Midodrine started. Albumin bolus given. Previously: DC Lasix drip Increase Protonix dose Monitor renal parameters, electrolytes Per orders Subjective ROS Limited/Unobtainable: Yes Objective Objective Last 24 Hour Vital Signs Date Time Temp Pulse Resp B/P (MAP) Pulse Ox O2 Delivery O2 Flow Rate FiO2 07/04/20 12:25 17 Endotracheal Tube 100 07/04/20 12:25 18 142/90 Endotracheal Tube 100 07/04/20 12:10 98 22 92 07/04/20 11:00 100 24 120/75 (90) 98 07/04/20 11:00 19 Endotracheal Tube 70 07/04/20 11:00 19 128/73 Endotracheal Tube 70 07/04/20 10:00 18 Endotracheal Tube 70 07/04/20 10:00 17 123/78 70 07/04/20 10:00 99 28 123/78 (93) 91 07/04/20 09:00 98 20 120/74 (89) 97 07/04/20 09:00 21 Endotracheal Tube 70 07/04/20 09:00 21 128/78 Endotracheal Tube 70 07/04/20 08:24 29 Mechanical Ventilator 70 07/04/20 08:00 100 07/04/20 08:00 Mechanical Ventilator Mechanical Ventilator 07/04/20 08:00 20 123/77 Mechanical Ventilator 70 07/04/20 08:00 70 07/04/20 08:00 98.7 96 20 123/77 (92) 100 07/04/20 07:30 97 20 115/95 (102) 97 07/04/20 07:00 95 21 120/86 (97) 99 07/04/20 07:00 24 Mechanical Ventilator 70 07/04/20 07:00 24 125/85 Mechanical Ventilator 70 07/04/20 07:00 98 21 70 07/04/20 06:45 22 Mechanical Ventilator 70 07/04/20 06:45 22 120/86 Mechanical Ventilator 70 07/04/20 06:30 20 Mechanical Ventilator 70 07/04/20 06:30 20 118/76 Mechanical Ventilator 70 07/04/20 06:30 97 12 07/04/20 06:30 97 12 131/69 (89) 95 07/04/20 06:15 22 Mechanical Ventilator 70 07/04/20 06:15 22 131/69 Mechanical Ventilator 70 07/04/20 06:00 20 Mechanical Ventilator 70 07/04/20 06:00 20 124/77 Mechanical Ventilator 70 07/04/20 06:00 100 21 123/80 (94) 89 07/04/20 05:30 91 20 118/71 (87) 100 07/04/20 05:00 19 Mechanical Ventilator 70 07/04/20 05:00 19 106/65 Mechanical Ventilator 70 07/04/20 05:00 90 19 133/73 (93) 96 07/04/20 04:30 92 20 106/64 (78) 100 07/04/20 04:00 70 07/04/20 04:00 22 70 07/04/20 04:00 22 107/70 Mechanical Ventilator 70 07/04/20 04:00 98.8 91 22 111/64 (80) 100 07/04/20 04:00 Mechanical Ventilator Mechanical Ventilator 07/04/20 04:00 88 07/04/20 03:30 86 21 105/64 (78) 97 07/04/20 03:00 20 Mechanical Ventilator 70 07/04/20 03:00 20 102/62 Mechanical Ventilator 70 07/04/20 03:00 88 22 100/60 (73) 100 07/04/20 02:30 90 19 110/74 (86) 94 07/04/20 02:21 17 101/65 Mechanical Ventilator 70 07/04/20 02:00 85 18 96/59 (71) 100 07/04/20 02:00 19 70 07/04/20 02:00 19 88/57 Mechanical Ventilator 70 07/04/20 01:30 87 17 99/60 (73) 98 07/04/20 01:20 87 16 70 07/04/20 01:00 86 17 96/65 (75) 95 07/04/20 01:00 18 Mechanical Ventilator 70 07/04/20 01:00 18 95/57 Mechanical Ventilator 70 07/04/20 00:30 88 18 99/59 (72) 99 07/04/20 00:00 87 07/04/20 00:00 17 Mechanical Ventilator 70 07/04/20 00:00 17 96/59 Mechanical Ventilator 70 07/04/20 00:00 Mechanical Ventilator Mechanical Ventilator 07/04/20 00:00 98.9 86 16 97/58 (71) 100 07/04/20 00:00 70 07/03/20 23:30 86 17 97/62 (74) 100 07/03/20 23:00 16 Mechanical Ventilator 70 07/03/20 23:00 17 93/57 Mechanical Ventilator 70 07/03/20 23:00 86 17 97/61 (73) 100 07/03/20 22:45 18 Mechanical Ventilator 70 07/03/20 22:30 87 16 92/57 (69) 100 07/03/20 22:30 17 Mechanical Ventilator 70 07/03/20 22:00 17 Non-Rebreather 70 07/03/20 22:00 17 87/56 Mechanical Ventilator 70 07/03/20 22:00 89 18 94/59 (71) 100 07/03/20 21:30 91 18 97/57 (70) 100 07/03/20 21:00 19 Mechanical Ventilator 70 07/03/20 21:00 18 93/60 Mechanical Ventilator 70 07/03/20 21:00 91 20 96/56 (69) 100 07/03/20 20:30 90 18 92/61 (71) 100 07/03/20 20:17 21 Mechanical Ventilator 70 07/03/20 20:00 70 07/03/20 20:00 21 97/58 Mechanical Ventilator 70 07/03/20 20:00 98.8 93 22 110/88 (95) 100 07/03/20 20:00 93 07/03/20 20:00 Mechanical Ventilator Mechanical Ventilator 07/03/20 19:30 88 18 95/59 (71) 98 07/03/20 19:23 90 15 70 07/03/20 19:00 19 97/58 Mechanical Ventilator 70 07/03/20 19:00 92 21 96/58 (71) 100 07/03/20 18:00 18 98/58 Endotracheal Tube 70 07/03/20 18:00 17 Endotracheal Tube 70 07/03/20 18:00 92 16 96/60 (72) 98 07/03/20 17:00 16 93/57 Endotracheal Tube 70 07/03/20 17:00 17 Endotracheal Tube 70 07/03/20 17:00 88 16 91/63 (72) 100 07/03/20 16:00 100 07/03/20 16:00 Mechanical Ventilator Mechanical Ventilator 07/03/20 16:00 97.6 91 20 100/63 (75) 96 07/03/20 16:00 16 100/63 Endotracheal Tube 70 07/03/20 16:00 17 Endotracheal Tube 70 07/03/20 16:00 70 07/03/20 15:21 93 17 70 07/03/20 15:00 93 19 92/59 (70) 99 07/03/20 15:00 19 92/59 Endotracheal Tube 70 07/03/20 15:00 19 Endotracheal Tube 70 07/03/20 14:00 18 91/59 Endotracheal Tube 70 07/03/20 14:00 18 70 07/03/20 14:00 98 17 91/59 (70) 99 07/03/20 13:47 92 16 70 07/03/20 13:00 17 102/61 Endotracheal Tube 70 07/03/20 13:00 17 Endotracheal Tube 70 07/03/20 13:00 97 18 102/61 (75) 99 Intake and Output 07/03/20 07/04/20 19:00 07:00 Intake Total 1390 ml 1243.33 ml Output Total 2210 ml 475 ml Balance -820 ml 768.33 ml Free Water 30 ml 120 ml IV Total 1000 ml 963.33 ml Tube Feeding 360 ml 160 ml Output Urine Total 2195 ml 475 ml Stool Total 15 ml Current Medications Medications (Trade) Dose Ordered Sig/Zelda Route PRN Reason Start Time Stop Time Status Last Admin Dose Admin Acetaminophen (Tylenol) 650 mg Q4H PRN NG Temp >100.5 06/29/20 10:15 07/29/20 10:14 07/02/20 00:53 Acetaminophen (Tylenol) 650 mg Q6H PRN NG Mild Pain (Pain Scale 1-3) 06/29/20 10:15 07/29/20 10:14 Chlorhexidine Gluconate (Inna-Hex 2%) 1 applic DAILY@2000 TOPIC 05/30/20 20:00 08/28/20 19:59 07/03/20 20:13 Dextrose (Dextrose 50%) 25 ml Q30M PRN IV Hypoglycemia 06/05/20 10:45 09/03/20 10:44 Dextrose (Dextrose 50%) 50 ml Q30M PRN IV Hypoglycemia 06/05/20 10:45 09/03/20 10:44 Dextrose/Sodium Chloride 1,000 ml @ 50 mls/hr Q20H IV 06/24/20 16:30 07/24/20 16:29 07/03/20 20:00 Docusate Sodium (Colace) 100 mg Q12HR GT 06/07/20 21:00 07/07/20 20:59 07/03/20 20:13 Enoxaparin Sodium (Lovenox) 40 mg DAILY SUBQ 05/30/20 10:00 08/28/20 09:59 07/03/20 10:03 Fentanyl Citrate 250 ml @ 1 mls/hr Q24H IV 07/03/20 11:00 07/05/20 10:59 07/04/20 02:21 Furosemide (Lasix) 40 mg DAILY IV 06/22/20 09:00 07/22/20 08:59 07/03/20 10:02 Insulin Aspart (NovoLOG) EVERY 6 HOURS SUBQ 06/07/20 00:00 09/03/20 11:59 07/04/20 06:27 Lidocaine HCl (Xylocaine 1% 30ml) 30 ml NOW PRN INJ Radiology Procedure 07/04/20 10:45 07/07/20 10:44 Midazolam HCl 100 mg/Sodium Chloride 200 ml @ 0 mls/hr Q24H PRN IV sedation 07/03/20 20:00 07/05/20 19:59 07/04/20 08:24 Midodrine (Pro-Amatine) 10 mg Q8HR GT 06/30/20 14:00 09/12/20 13:59 07/04/20 14:09 Polyethylene Glycol (Miralax) 17 gm BEDTIME GT 06/07/20 21:00 07/07/20 20:59 07/03/20 20:13 Sodium Bicarbonate (Sodium Bicarbonate 4%) 1 ml NOW PRN IV Radiology Procedure 07/04/20 10:45 07/07/20 10:44 Vitamin D (Vitamin D) 5,000 unit DAILY GT 06/28/20 09:00 07/28/20 08:59 07/03/20 12:10 Laboratory Tests 07/04/20 04:40: White Blood Count 6.1, Red Blood Count 3.03L, Hemoglobin 8.8L, Hematocrit 29.0L, Mean Corpuscular Volume 96, Mean Corpuscular Hemoglobin 28.9, Mean Corpuscular Hemoglobin Concent 30.2L, Red Cell Distribution Width 18.8H, Platelet Count 225, Mean Platelet Volume 8.4, Neutrophils (%) (Auto) 56.6, Lymphocytes (%) (Auto) 27.7, Monocytes (%) (Auto) 9.2, Eosinophils (%) (Auto) 5.5H, Basophils (%) (Auto) 1.1, Sodium Level 142, Potassium Level 3.5, Chloride Level 98, Carbon Dioxide Level 44*H, Anion Gap 1L, Blood Urea Nitrogen 11, Creatinine 0.4L, Estimat Glomerular Filtration Rate > 60, Glucose Level 126H, Calcium Level 9.2, Phosphorus Level 3.9, Magnesium Level 1.7L, Total Bilirubin 1.7H, Direct Bilirubin 0.3, Aspartate Amino Transf (AST/SGOT) 32, Alanine Aminotransferase (ALT/SGPT) 23, Alkaline Phosphatase 79, Total Protein 7.3, Albumin 2.3L, Globulin 5.0, Albumin/Globulin Ratio 0.5L 07/04/20 07:19: Prothrombin Time 11.7H, Prothromb Time International Ratio 1.1, Activated Partial Thromboplast Time 27 07/04/20 09:37: Arterial Blood pH 7.351, Arterial Blood Partial Pressure CO2 79.4*H, Arterial Blood Partial Pressure O2 58.9L, Arterial Blood HCO3 42.9*H, Arterial Blood Oxygen Saturation 87.6*L, Arterial Blood Base Excess 14.9*H, Jeremiah Test Positive Height (Feet): 5 Height (Inches): 6.00 Weight (Pounds): 239 General Appearance: no apparent distress EENT: other - Not trached to ventilator Cardiovascular: tachycardia Respiratory/Chest: decreased breath sounds Abdomen: distended Rigo Tyler MD Jul 04, 2020 12:41
--- NOTE | 2020-07-04 12:43 | Diagnostic Imaging Report ---
Indication: Shortness of breath Technique: One view of the chest Comparison: 07/02/2020 Findings: Interval exchange of endotracheal tube for tracheostomy. Stable satisfactory position of nasogastric tube. Bilateral infiltrates again demonstrated, probably stable on the right, possibly slightly worse on the left. No pneumothorax. No pneumomediastinum Impression: Interval tracheostomy placement, no radiographically evident complication Bilateral infiltrates, probably stable on the right, stable to slightly worse on the left Findings discussed by phone with Dr. Devine
--- NOTE | 2020-07-04 13:04 | General Progress Note ---
Subjective Constitutional: Reports: weakness Allergies: Coded Allergies: No Known Allergies (Unverified , 05/28/20) All Systems: reviewed and negative except above Subjective trach vent ng in icu Objective Last 24 Hour Vital Signs Date Time Temp Pulse Resp B/P (MAP) Pulse Ox O2 Delivery O2 Flow Rate FiO2 07/04/20 12:25 17 Endotracheal Tube 100 07/04/20 12:25 18 142/90 Endotracheal Tube 100 07/04/20 12:10 98 22 92 07/04/20 11:00 100 24 120/75 (90) 98 07/04/20 11:00 19 Endotracheal Tube 70 07/04/20 11:00 19 128/73 Endotracheal Tube 70 07/04/20 10:00 18 Endotracheal Tube 70 07/04/20 10:00 17 123/78 70 07/04/20 10:00 99 28 123/78 (93) 91 07/04/20 09:00 98 20 120/74 (89) 97 07/04/20 09:00 21 Endotracheal Tube 70 07/04/20 09:00 21 128/78 Endotracheal Tube 70 07/04/20 08:24 29 Mechanical Ventilator 70 07/04/20 08:00 100 07/04/20 08:00 Mechanical Ventilator Mechanical Ventilator 07/04/20 08:00 20 123/77 Mechanical Ventilator 70 07/04/20 08:00 70 07/04/20 08:00 98.7 96 20 123/77 (92) 100 07/04/20 07:30 97 20 115/95 (102) 97 07/04/20 07:00 95 21 120/86 (97) 99 07/04/20 07:00 24 Mechanical Ventilator 70 07/04/20 07:00 24 125/85 Mechanical Ventilator 70 07/04/20 07:00 98 21 70 07/04/20 06:45 22 Mechanical Ventilator 70 07/04/20 06:45 22 120/86 Mechanical Ventilator 70 07/04/20 06:30 20 Mechanical Ventilator 70 07/04/20 06:30 20 118/76 Mechanical Ventilator 70 07/04/20 06:30 97 12 07/04/20 06:30 97 12 131/69 (89) 95 07/04/20 06:15 22 Mechanical Ventilator 70 07/04/20 06:15 22 131/69 Mechanical Ventilator 70 07/04/20 06:00 20 Mechanical Ventilator 70 07/04/20 06:00 20 124/77 Mechanical Ventilator 70 07/04/20 06:00 100 21 123/80 (94) 89 07/04/20 05:30 91 20 118/71 (87) 100 07/04/20 05:00 19 Mechanical Ventilator 70 07/04/20 05:00 19 106/65 Mechanical Ventilator 70 07/04/20 05:00 90 19 133/73 (93) 96 07/04/20 04:30 92 20 106/64 (78) 100 07/04/20 04:00 70 07/04/20 04:00 22 70 07/04/20 04:00 22 107/70 Mechanical Ventilator 70 07/04/20 04:00 98.8 91 22 111/64 (80) 100 07/04/20 04:00 Mechanical Ventilator Mechanical Ventilator 07/04/20 04:00 88 07/04/20 03:30 86 21 105/64 (78) 97 07/04/20 03:00 20 Mechanical Ventilator 70 07/04/20 03:00 20 102/62 Mechanical Ventilator 70 07/04/20 03:00 88 22 100/60 (73) 100 07/04/20 02:30 90 19 110/74 (86) 94 07/04/20 02:21 17 101/65 Mechanical Ventilator 70 07/04/20 02:00 85 18 96/59 (71) 100 07/04/20 02:00 19 70 07/04/20 02:00 19 88/57 Mechanical Ventilator 70 07/04/20 01:30 87 17 99/60 (73) 98 07/04/20 01:20 87 16 70 07/04/20 01:00 86 17 96/65 (75) 95 07/04/20 01:00 18 Mechanical Ventilator 70 07/04/20 01:00 18 95/57 Mechanical Ventilator 70 07/04/20 00:30 88 18 99/59 (72) 99 07/04/20 00:00 87 07/04/20 00:00 17 Mechanical Ventilator 70 07/04/20 00:00 17 96/59 Mechanical Ventilator 70 07/04/20 00:00 Mechanical Ventilator Mechanical Ventilator 07/04/20 00:00 98.9 86 16 97/58 (71) 100 07/04/20 00:00 70 07/03/20 23:30 86 17 97/62 (74) 100 07/03/20 23:00 16 Mechanical Ventilator 70 07/03/20 23:00 17 93/57 Mechanical Ventilator 70 07/03/20 23:00 86 17 97/61 (73) 100 07/03/20 22:45 18 Mechanical Ventilator 70 07/03/20 22:30 87 16 92/57 (69) 100 07/03/20 22:30 17 Mechanical Ventilator 70 07/03/20 22:00 17 Non-Rebreather 70 07/03/20 22:00 17 87/56 Mechanical Ventilator 70 07/03/20 22:00 89 18 94/59 (71) 100 07/03/20 21:30 91 18 97/57 (70) 100 07/03/20 21:00 19 Mechanical Ventilator 70 07/03/20 21:00 18 93/60 Mechanical Ventilator 70 07/03/20 21:00 91 20 96/56 (69) 100 07/03/20 20:30 90 18 92/61 (71) 100 07/03/20 20:17 21 Mechanical Ventilator 70 07/03/20 20:00 70 07/03/20 20:00 21 97/58 Mechanical Ventilator 70 07/03/20 20:00 98.8 93 22 110/88 (95) 100 07/03/20 20:00 93 07/03/20 20:00 Mechanical Ventilator Mechanical Ventilator 07/03/20 19:30 88 18 95/59 (71) 98 07/03/20 19:23 90 15 70 07/03/20 19:00 19 97/58 Mechanical Ventilator 70 07/03/20 19:00 92 21 96/58 (71) 100 07/03/20 18:00 18 98/58 Endotracheal Tube 70 07/03/20 18:00 17 Endotracheal Tube 70 07/03/20 18:00 92 16 96/60 (72) 98 07/03/20 17:00 16 93/57 Endotracheal Tube 70 07/03/20 17:00 17 Endotracheal Tube 70 07/03/20 17:00 88 16 91/63 (72) 100 07/03/20 16:00 100 07/03/20 16:00 Mechanical Ventilator Mechanical Ventilator 07/03/20 16:00 97.6 91 20 100/63 (75) 96 07/03/20 16:00 16 100/63 Endotracheal Tube 70 07/03/20 16:00 17 Endotracheal Tube 70 07/03/20 16:00 70 07/03/20 15:21 93 17 70 07/03/20 15:00 93 19 92/59 (70) 99 07/03/20 15:00 19 92/59 Endotracheal Tube 70 07/03/20 15:00 19 Endotracheal Tube 70 07/03/20 14:00 18 91/59 Endotracheal Tube 70 07/03/20 14:00 18 70 07/03/20 14:00 98 17 91/59 (70) 99 07/03/20 13:47 92 16 70 Intake and Output 07/03/20 07/04/20 19:00 07:00 Intake Total 1390 ml 1243.33 ml Output Total 2210 ml 475 ml Balance -820 ml 768.33 ml Free Water 30 ml 120 ml IV Total 1000 ml 963.33 ml Tube Feeding 360 ml 160 ml Output Urine Total 2195 ml 475 ml Stool Total 15 ml Laboratory Tests 07/04/20 04:40: White Blood Count 6.1, Red Blood Count 3.03L, Hemoglobin 8.8L, Hematocrit 29.0L, Mean Corpuscular Volume 96, Mean Corpuscular Hemoglobin 28.9, Mean Corpuscular Hemoglobin Concent 30.2L, Red Cell Distribution Width 18.8H, Platelet Count 225, Mean Platelet Volume 8.4, Neutrophils (%) (Auto) 56.6, Lymphocytes (%) (Auto) 27.7, Monocytes (%) (Auto) 9.2, Eosinophils (%) (Auto) 5.5H, Basophils (%) (Auto) 1.1, Sodium Level 142, Potassium Level 3.5, Chloride Level 98, Carbon Di oxide Level 44*H, Anion Gap 1L, Blood Urea Nitrogen 11, Creatinine 0.4L, Estimat Glomerular Filtration Rate > 60, Glucose Level 126H, Calcium Level 9.2, Phosphorus Level 3.9, Magnesium Level 1.7L, Total Bilirubin 1.7H, Direct Bilirubin 0.3, Aspartate Amino Transf (AST/SGOT) 32, Alanine Aminotransferase (ALT/SGPT) 23, Alkaline Phosphatase 79, Total Protein 7.3, Albumin 2.3L, Globulin 5.0, Albumin/Globulin Ratio 0.5L 07/04/20 07:19: Prothrombin Time 11.7H, Prothromb Time International Ratio 1.1, Activated Partial Thromboplast Time 27 07/04/20 09:37: Arterial Blood pH 7.351, Arterial Blood Partial Pressure CO2 79.4*H, Arterial Blood Partial Pressure O2 58.9L, Arterial Blood HCO3 42.9*H, Arterial Blood Oxygen Saturation 87.6*L, Arterial Blood Base Excess 14.9*H, Jeremiah Test Positive Height (Feet): 5 Height (Inches): 6.00 Weight (Pounds): 239 General Appearance: lethargic EENT: normal ENT inspection Neck: normal alignment Cardiovascular: normal peripheral pulses, normal rate, regular rhythm Respiratory/Chest: chest wall non-tender, lungs clear, normal breath sounds Abdomen: normal bowel sounds, non tender, soft Extremities: normal inspection Edema: no edema noted Arm (L), no edema noted Arm (R), no edema noted Leg (L), no edema noted Leg (R), no edema noted Pedal (L), no edema noted Pedal (R), no edema noted Generalized Neurologic: motor weakness Skin: normal pigmentation, warm/dry Assessment/Plan Problem List: (1) Hypoxia ICD Codes: R09.02 - Hypoxemia SNOMED: 661554706 (2) Respiratory failure ICD Codes: J96.90 - Respiratory failure, unspecified, unspecified whether with hypoxia or hypercapnia SNOMED: 312605004 (3) Respiratory distress ICD Codes: R06.03 - Acute respiratory distress; J12.82 - Pneumonia due to coronavirus disease 2019 SNOMED: 720323457 (4) Pneumonia due to COVID-19 virus ICD Codes: U07.1 - COVID-19; J12.82 - Pneumonia due to coronavirus disease 2019 SNOMED: 936800798871935245 Status: unchanged Assessment/Plan: vent abx id pulm f/u cbc bmp am Tank Del Cid DO Jul 04, 2020 13:04
--- NOTE | 2020-07-04 13:30 | Surgery Progress Note ---
Surgery Progress Note Subjective Additional Comments Trach today Objective Last 24 Hour Vital Signs Date Time Temp Pulse Resp B/P (MAP) Pulse Ox O2 Delivery O2 Flow Rate FiO2 07/04/20 13:00 101 18 128/79 (95) 100 07/04/20 13:00 19 Endotracheal Tube 100 07/04/20 13:00 18 128/79 Endotracheal Tube 100 07/04/20 12:30 Mechanical Ventilator Mechanical Ventilator 07/04/20 12:30 100 07/04/20 12:25 17 Endotracheal Tube 100 07/04/20 12:25 18 142/90 Endotracheal Tube 100 07/04/20 12:10 97.8 07/04/20 12:10 98 22 92 07/04/20 12:06 100 17 144/87 (106) 94 07/04/20 12:00 109 07/04/20 11:00 100 24 120/75 (90) 98 07/04/20 11:00 19 Endotracheal Tube 70 07/04/20 11:00 19 128/73 Endotracheal Tube 70 07/04/20 10:00 18 Endotracheal Tube 70 07/04/20 10:00 17 123/78 70 07/04/20 10:00 99 28 123/78 (93) 91 07/04/20 09:00 98 20 120/74 (89) 97 07/04/20 09:00 21 Endotracheal Tube 70 07/04/20 09:00 21 128/78 Endotracheal Tube 70 07/04/20 08:24 29 Mechanical Ventilator 70 07/04/20 08:00 100 07/04/20 08:00 Mechanical Ventilator Mechanical Ventilator 07/04/20 08:00 20 123/77 Mechanical Ventilator 70 07/04/20 08:00 70 07/04/20 08:00 98.7 96 20 123/77 (92) 100 07/04/20 07:30 97 20 115/95 (102) 97 07/04/20 07:00 95 21 120/86 (97) 99 07/04/20 07:00 24 Mechanical Ventilator 70 07/04/20 07:00 24 125/85 Mechanical Ventilator 70 07/04/20 07:00 98 21 70 07/04/20 06:45 22 Mechanical Ventilator 70 07/04/20 06:45 22 120/86 Mechanical Ventilator 70 07/04/20 06:30 20 Mechanical Ventilator 70 07/04/20 06:30 20 118/76 Mechanical Ventilator 70 07/04/20 06:30 97 12 07/04/20 06:30 97 12 131/69 (89) 95 07/04/20 06:15 22 Mechanical Ventilator 70 07/04/20 06:15 22 131/69 Mechanical Ventilator 70 07/04/20 06:00 20 Mechanical Ventilator 70 07/04/20 06:00 20 124/77 Mechanical Ventilator 70 07/04/20 06:00 100 21 123/80 (94) 89 07/04/20 05:30 91 20 118/71 (87) 100 07/04/20 05:00 19 Mechanical Ventilator 70 07/04/20 05:00 19 106/65 Mechanical Ventilator 70 07/04/20 05:00 90 19 133/73 (93) 96 07/04/20 04:30 92 20 106/64 (78) 100 07/04/20 04:00 70 07/04/20 04:00 22 70 07/04/20 04:00 22 107/70 Mechanical Ventilator 70 07/04/20 04:00 98.8 91 22 111/64 (80) 100 07/04/20 04:00 Mechanical Ventilator Mechanical Ventilator 07/04/20 04:00 88 07/04/20 03:30 86 21 105/64 (78) 97 07/04/20 03:00 20 Mechanical Ventilator 70 07/04/20 03:00 20 102/62 Mechanical Ventilator 70 07/04/20 03:00 88 22 100/60 (73) 100 07/04/20 02:30 90 19 110/74 (86) 94 07/04/20 02:21 17 101/65 Mechanical Ventilator 70 07/04/20 02:00 85 18 96/59 (71) 100 07/04/20 02:00 19 70 07/04/20 02:00 19 88/57 Mechanical Ventilator 70 07/04/20 01:30 87 17 99/60 (73) 98 07/04/20 01:20 87 16 70 07/04/20 01:00 86 17 96/65 (75) 95 07/04/20 01:00 18 Mechanical Ventilator 70 07/04/20 01:00 18 95/57 Mechanical Ventilator 70 07/04/20 00:30 88 18 99/59 (72) 99 07/04/20 00:00 87 07/04/20 00:00 17 Mechanical Ventilator 70 07/04/20 00:00 17 96/59 Mechanical Ventilator 70 07/04/20 00:00 Mechanical Ventilator Mechanical Ventilator 07/04/20 00:00 98.9 86 16 97/58 (71) 100 07/04/20 00:00 70 07/03/20 23:30 86 17 97/62 (74) 100 07/03/20 23:00 16 Mechanical Ventilator 70 07/03/20 23:00 17 93/57 Mechanical Ventilator 70 07/03/20 23:00 86 17 97/61 (73) 100 07/03/20 22:45 18 Mechanical Ventilator 70 07/03/20 22:30 87 16 92/57 (69) 100 07/03/20 22:30 17 Mechanical Ventilator 70 07/03/20 22:00 17 Non-Rebreather 70 07/03/20 22:00 17 87/56 Mechanical Ventilator 70 07/03/20 22:00 89 18 94/59 (71) 100 07/03/20 21:30 91 18 97/57 (70) 100 07/03/20 21:00 19 Mechanical Ventilator 70 07/03/20 21:00 18 93/60 Mechanical Ventilator 70 07/03/20 21:00 91 20 96/56 (69) 100 07/03/20 20:30 90 18 92/61 (71) 100 07/03/20 20:17 21 Mechanical Ventilator 70 07/03/20 20:00 70 07/03/20 20:00 21 97/58 Mechanical Ventilator 70 07/03/20 20:00 98.8 93 22 110/88 (95) 100 07/03/20 20:00 93 07/03/20 20:00 Mechanical Ventilator Mechanical Ventilator 07/03/20 19:30 88 18 95/59 (71) 98 07/03/20 19:23 90 15 70 07/03/20 19:00 19 97/58 Mechanical Ventilator 70 07/03/20 19:00 92 21 96/58 (71) 100 07/03/20 18:00 18 98/58 Endotracheal Tube 70 07/03/20 18:00 17 Endotracheal Tube 70 07/03/20 18:00 92 16 96/60 (72) 98 07/03/20 17:00 16 93/57 Endotracheal Tube 70 07/03/20 17:00 17 Endotracheal Tube 70 07/03/20 17:00 88 16 91/63 (72) 100 07/03/20 16:00 100 07/03/20 16:00 Mechanical Ventilator Mechanical Ventilator 07/03/20 16:00 97.6 91 20 100/63 (75) 96 07/03/20 16:00 16 100/63 Endotracheal Tube 70 07/03/20 16:00 17 Endotracheal Tube 70 07/03/20 16:00 70 07/03/20 15:21 93 17 70 07/03/20 15:00 93 19 92/59 (70) 99 07/03/20 15:00 19 92/59 Endotracheal Tube 70 07/03/20 15:00 19 Endotracheal Tube 70 07/03/20 14:00 18 91/59 Endotracheal Tube 70 07/03/20 14:00 18 70 07/03/20 14:00 98 17 91/59 (70) 99 07/03/20 13:47 92 16 70 I&O Intake and Output 07/03/20 07/04/20 19:00 07:00 Intake Total 1390 ml 1243.33 ml Output Total 2210 ml 475 ml Balance -820 ml 768.33 ml Free Water 30 ml 120 ml IV Total 1000 ml 963.33 ml Tube Feeding 360 ml 160 ml Output Urine Total 2195 ml 475 ml Stool Total 15 ml Laboratory Tests Test 07/04/20 04:40 07/04/20 07:19 07/04/20 09:37 White Blood Count 6.1 K/UL (4.8-10.8) Red Blood Count 3.03 M/UL (4.20-5.40) L Hemoglobin 8.8 G/DL (12.0-16.0) L Hematocrit 29.0 % (37.0-47.0) L Mean Corpuscular Volume 96 FL (80-99) Mean Corpuscular Hemoglobin 28.9 PG (27.0-31.0) Mean Corpuscular Hemoglobin Concent 30.2 G/DL (32.0-36.0) L Red Cell Distribution Width 18.8 % (11.6-14.8) H Platelet Count 225 K/UL (150-450) Mean Platelet Volume 8.4 FL (6.5-10.1) Neutrophils (%) (Auto) 56.6 % (45.0-75.0) Lymphocytes (%) (Auto) 27.7 % (20.0-45.0) Monocytes (%) (Auto) 9.2 % (1.0-10.0) Eosinophils (%) (Auto) 5.5 % (0.0-3.0) H Basophils (%) (Auto) 1.1 % (0.0-2.0) Sodium Level 142 MMOL/L (136-145) Potassium Level 3.5 MMOL/L (3.5-5.1) Chloride Level 98 MMOL/L (98-107) Carbon Dioxide Level 44 MMOL/L (21-32) *H Anion Gap 1 mmol/L (5-15) L Blood Urea Nitrogen 11 mg/dL (7-18) Creatinine 0.4 MG/DL (0.55-1.30) L Estimat Glomerular Filtration Rate > 60 mL/min (>60) Glucose Level 126 MG/DL (74-106) H Calcium Level 9.2 MG/DL (8.5-10.1) Phosphorus Level 3.9 MG/DL (2.5-4.9) Magnesium Level 1.7 MG/DL (1.8-2.4) L Total Bilirubin 1.7 MG/DL (0.2-1.0) H Direct Bilirubin 0.3 MG/DL (0.0-0.3) Aspartate Amino Transf (AST/SGOT) 32 U/L (15-37) Alanine Aminotransferase (ALT/SGPT) 23 U/L (12-78) Alkaline Phosphatase 79 U/L (46-116) Total Protein 7.3 G/DL (6.4-8.2) Albumin 2.3 G/DL (3.4-5.0) L Globulin 5.0 g/dL Albumin/Globulin Ratio 0.5 (1.0-2.7) L Prothrombin Time 11.7 SEC (9.30-11.50) H Prothromb Time International Ratio 1.1 (0.9-1.1) Activated Partial Thromboplast Time 27 SEC (23-33) Arterial Blood pH 7.351 (7.350-7.450) Arterial Blood Partial Pressure CO2 79.4 mmHg (35.0-45.0) *H Arterial Blood Partial Pressure O2 58.9 mmHg (75.0-100.0) L Arterial Blood HCO3 42.9 mmol/L (22.0-26.0) *H Arterial Blood Oxygen Saturation 87.6 % (95-100) *L Arterial Blood Base Excess 14.9 (-2-2) *H Jeremiah Test Positive Plan Problems: (1) Respiratory distress (2) Respiratory failure Assessment & Plan: 50-year-old female Covid positive respiratory insufficiency intubated on ventilatory support declining. Leukocytosis increase oxygen requirement. Vent settings per pulmonology reviewed identified and agree. Unfortunately further surgical invention at this time is not appropriate as patient is not a candidate and her current condition. Prognosis overall guarded. Tracheostomy can be considered in the future if recovering or shows improvement and requires unable to be weaned from ventilator support. Currently okay for nutritional optimization with NG tube. Will need significant monitoring for decubitus formation given patient's size and condition. Okay for air mattress tolerated. Turn every 2 hours as tolerated. Patient is otherwise critically ill and blood pressure labile. Will need to monitor closely.Bilateral infiltrates are again demonstrated. Stable tube and line posit ions. will need trach will need to wean vent first (3) Hypoxia (4) Pneumonia due to COVID-19 virus Assessment & Plan: ++ as per pulm and ID (5) Diabetes mellitus out of control Assessment & Plan: DAILY ESTIMATED NEEDS: Needs based on Critical care, obesity 11-14kcal/kg actual body wt (140kg) kcals/kg 6144-2405 total kcals 1.5-2.0g prot/kg IBW (64.5kg) g protein/kg 96-129 g total protein 25-30ml/kg abw (83kg) mL/kg 3999-1787 total fluid mLs NUTRITION DIAGNOSIS: Swallowing difficulty R/T respiratory failure as evidenced by pt orally intubated and sedated, on OGT feeds. CURRENT TF: Vital 1.2 goal of 60ml/hr ENTERAL NUTRITION RECOMMENDATIONS: Vital AF 1.2 @ 60ml/hr x 24 hrs to provide 1440ml, 1728kcal, 108g prot, 1168ml free water * Maintain current critical care and carb controlled TF formula of Vital AF * TF @ goal meeds 100% est kcal/prot needs * HOB over 30 degrees/ water flush per MD TF may be lowered to 55ml/hr for improved BG control while maintaining Kcal and pro needs. ADDITIONAL RECOMMENDATIONS: * Calibrated bedscale wt * Monitor Propofol rate, need for TF adjustment-> now off * Monitor BGs closely : now improved, on novolog q 6rs + NISS * Monitor lytes- K elevated, monitor need for TF change * Rec bowel regimen- now w/ rectal tube . Az Devine Jul 04, 2020 13:30
--- NOTE | 2020-07-04 13:31 | Brief Operative Note ---
Immediate Post Operative Note Operative Note Pre-op Diagnosis: Respiratory insufficiency Covid positive Procedure: Tracheostomy Bronchoscopy Post-op Diagnosis: same as pre-op Surgeon: Az Devine Anesthesiologist: José Anesthesia: general Specimen: none Complications: none Condition: stable Fluids: See records Estimated Blood Loss: minimal Implant(s) used?: Az Marquez Jul 04, 2020 13:30
--- NOTE | 2020-07-04 13:55 | NUR ---
CASE MANAGEMENT:REVIEW 07/04/20 SI: COVID PNEUMONIA TRACHEOSTOMY AND BRONCHOSCOPY TODAY 97.8 98 22 142/90 100% % ON VENT SUPPORT W/100% FIO2 H/H-8.8/29.0 CO2+44 PCO2+79.4 PO2-58.9 HCO3+42.9 IS:VERSED GTT PRN FENTANYL GTT IV LASIX QD IV PROTONIX Q12 LOVENOX SQ QD IVF@50/HR MIDODRINE NG Q8HRS : ICU STATUS DCP: FROM HOME PLAN: TRACH TODAY
--- NOTE | 2020-07-04 14:06 | NUR ---
INSURNACE CLINICALS AND REVIEWS FAXED TO [facility] T: [phone] EXT [id number] F: [phone] REF 2020 [id number]
--- NOTE | 2020-07-04 14:38 | Infectious Diseases Prog Note ---
Assessment/Plan Assessment/Plan A 1. COVID19 pneumonia 2. Hypoxic respiratory failure 3. Morbid obesity 4. DM type with hyperglycemia 5. Thrombocytopenia 6. leukocytosis resolved 7. Serratia pneumonia treated 8. Anemia 9. VDRF P 1. Finished remdesivir course 2. Finished steroid course 3. Discontinue Droplet isolation Subjective ROS Limited/Unobtainable: Yes Neurologic: Reports: other - sedated on restraint Allergies: Coded Allergies: No Known Allergies (Unverified , 05/28/20) Objective Last 24 Hour Vital Signs Date Time Temp Pulse Resp B/P (MAP) Pulse Ox O2 Delivery O2 Flow Rate FiO2 07/04/20 13:00 101 18 128/79 (95) 100 07/04/20 13:00 19 Endotracheal Tube 100 07/04/20 13:00 18 128/79 Endotracheal Tube 100 07/04/20 12:30 Mechanical Ventilator Mechanical Ventilator 07/04/20 12:30 100 07/04/20 12:25 17 Endotracheal Tube 100 07/04/20 12:25 18 142/90 Endotracheal Tube 100 07/04/20 12:10 97.8 07/04/20 12:10 98 22 92 07/04/20 12:06 100 17 144/87 (106) 94 07/04/20 12:00 109 07/04/20 11:00 100 24 120/75 (90) 98 07/04/20 11:00 19 Endotracheal Tube 70 07/04/20 11:00 19 128/73 Endotracheal Tube 70 07/04/20 10:00 18 Endotracheal Tube 70 07/04/20 10:00 17 123/78 70 07/04/20 10:00 99 28 123/78 (93) 91 07/04/20 09:00 98 20 120/74 (89) 97 07/04/20 09:00 21 Endotracheal Tube 70 07/04/20 09:00 21 128/78 Endotracheal Tube 70 07/04/20 08:24 29 Mechanical Ventilator 70 07/04/20 08:00 100 07/04/20 08:00 Mechanical Ventilator Mechanical Ventilator 07/04/20 08:00 20 123/77 Mechanical Ventilator 70 07/04/20 08:00 70 07/04/20 08:00 98.7 96 20 123/77 (92) 100 07/04/20 07:30 97 20 115/95 (102) 97 07/04/20 07:00 95 21 120/86 (97) 99 07/04/20 07:00 24 Mechanical Ventilator 70 07/04/20 07:00 24 125/85 Mechanical Ventilator 70 07/04/20 07:00 98 21 70 07/04/20 06:45 22 Mechanical Ventilator 70 07/04/20 06:45 22 120/86 Mechanical Ventilator 70 07/04/20 06:30 20 Mechanical Ventilator 70 07/04/20 06:30 20 118/76 Mechanical Ventilator 70 07/04/20 06:30 97 12 07/04/20 06:30 97 12 131/69 (89) 95 07/04/20 06:15 22 Mechanical Ventilator 70 07/04/20 06:15 22 131/69 Mechanical Ventilator 70 07/04/20 06:00 20 Mechanical Ventilator 70 07/04/20 06:00 20 124/77 Mechanical Ventilator 70 07/04/20 06:00 100 21 123/80 (94) 89 07/04/20 05:30 91 20 118/71 (87) 100 07/04/20 05:00 19 Mechanical Ventilator 70 07/04/20 05:00 19 106/65 Mechanical Ventilator 70 07/04/20 05:00 90 19 133/73 (93) 96 07/04/20 04:30 92 20 106/64 (78) 100 07/04/20 04:00 70 07/04/20 04:00 22 70 07/04/20 04:00 22 107/70 Mechanical Ventilator 70 07/04/20 04:00 98.8 91 22 111/64 (80) 100 07/04/20 04:00 Mechanical Ventilator Mechanical Ventilator 07/04/20 04:00 88 07/04/20 03:30 86 21 105/64 (78) 97 07/04/20 03:00 20 Mechanical Ventilator 70 07/04/20 03:00 20 102/62 Mechanical Ventilator 70 07/04/20 03:00 88 22 100/60 (73) 100 07/04/20 02:30 90 19 110/74 (86) 94 07/04/20 02:21 17 101/65 Mechanical Ventilator 70 07/04/20 02:00 85 18 96/59 (71) 100 07/04/20 02:00 19 70 07/04/20 02:00 19 88/57 Mechanical Ventilator 70 07/04/20 01:30 87 17 99/60 (73) 98 2/11/21 01:20 87 16 70 07/04/20 01:00 86 17 96/65 (75) 95 07/04/20 01:00 18 Mechanical Ventilator 70 07/04/20 01:00 18 95/57 Mechanical Ventilator 70 07/04/20 00:30 88 18 99/59 (72) 99 07/04/20 00:00 87 07/04/20 00:00 17 Mechanical Ventilator 70 07/04/20 00:00 17 96/59 Mechanical Ventilator 70 07/04/20 00:00 Mechanical Ventilator Mechanical Ventilator 07/04/20 00:00 98.9 86 16 97/58 (71) 100 07/04/20 00:00 70 07/03/20 23:30 86 17 97/62 (74) 100 07/03/20 23:00 16 Mechanical Ventilator 70 07/03/20 23:00 17 93/57 Mechanical Ventilator 70 07/03/20 23:00 86 17 97/61 (73) 100 07/03/20 22:45 18 Mechanical Ventilator 70 07/03/20 22:30 87 16 92/57 (69) 100 07/03/20 22:30 17 Mechanical Ventilator 70 07/03/20 22:00 17 Non-Rebreather 70 07/03/20 22:00 17 87/56 Mechanical Ventilator 70 07/03/20 22:00 89 18 94/59 (71) 100 07/03/20 21:30 91 18 97/57 (70) 100 07/03/20 21:00 19 Mechanical Ventilator 70 07/03/20 21:00 18 93/60 Mechanical Ventilator 70 07/03/20 21:00 91 20 96/56 (69) 100 07/03/20 20:30 90 18 92/61 (71) 100 07/03/20 20:17 21 Mechanical Ventilator 70 07/03/20 20:00 70 07/03/20 20:00 21 97/58 Mechanical Ventilator 70 07/03/20 20:00 98.8 93 22 110/88 (95) 100 07/03/20 20:00 93 07/03/20 20:00 Mechanical Ventilator Mechanical Ventilator 07/03/20 19:30 88 18 95/59 (71) 98 07/03/20 19:23 90 15 70 07/03/20 19:00 19 97/58 Mechanical Ventilator 70 07/03/20 19:00 92 21 96/58 (71) 100 07/03/20 18:00 18 98/58 Endotracheal Tube 70 07/03/20 18:00 17 Endotracheal Tube 70 07/03/20 18:00 92 16 96/60 (72) 98 07/03/20 17:00 16 93/57 Endotracheal Tube 70 07/03/20 17:00 17 Endotracheal Tube 70 07/03/20 17:00 88 16 91/63 (72) 100 07/03/20 16:00 100 07/03/20 16:00 Mechanical Ventilator Mechanical Ventilator 07/03/20 16:00 97.6 91 20 100/63 (75) 96 07/03/20 16:00 16 100/63 Endotracheal Tube 70 07/03/20 16:00 17 Endotracheal Tube 70 07/03/20 16:00 70 07/03/20 15:21 93 17 70 07/03/20 15:00 93 19 92/59 (70) 99 07/03/20 15:00 19 92/59 Endotracheal Tube 70 07/03/20 15:00 19 Endotracheal Tube 70 Height (Feet): 5 Height (Inches): 6.00 Weight (Pounds): 239 HEENT: status post trach Respiratory/Chest: decreased breath sounds, other - on ventilator Cardiovascular: tachycardia, other - R arm PICC line Abdomen: soft, non tender, other - NG & rectal tubes Extremities: other - mild edema Neurologic/Psychiatric: other - sedated Laboratory Tests Test 07/04/20 04:40 07/04/20 07:19 07/04/20 09:37 White Blood Count 6.1 K/UL (4.8-10.8) Red Blood Count 3.03 M/UL (4.20-5.40) L Hemoglobin 8.8 G/DL (12.0-16.0) L Hematocrit 29.0 % (37.0-47.0) L Mean Corpuscular Volume 96 FL (80-99) Mean Corpuscular Hemoglobin 28.9 PG (27.0-31.0) Mean Corpuscular Hemoglobin Concent 30.2 G/DL (32.0-36.0) L Red Cell Distribution Width 18.8 % (11.6-14.8) H Platelet Count 225 K/UL (150-450) Mean Platelet Volume 8.4 FL (6.5-10.1) Neutrophils (%) (Auto) 56.6 % (45.0-75.0) Lymphocytes (%) (Auto) 27.7 % (20.0-45.0) Monocytes (%) (Auto) 9.2 % (1.0-10.0) Eosinophils (%) (Auto) 5.5 % (0.0-3.0) H Basophils (%) (Auto) 1.1 % (0.0-2.0) Sodium Level 142 MMOL/L (136-145) Potassium Level 3.5 MMOL/L (3.5-5.1) Chloride Level 98 MMOL/L (98-107) Carbon Dioxide Level 44 MMOL/L (21-32) *H Anion Gap 1 mmol/L (5-15) L Blood Urea Nitrogen 11 mg/dL (7-18) Creatinine 0.4 MG/DL (0.55-1.30) L Estimat Glomerular Filtration Rate > 60 mL/min (>60) Glucose Level 126 MG/DL (74-106) H Calcium Level 9.2 MG/DL (8.5-10.1) Phosphorus Level 3.9 MG/DL (2.5-4.9) Magnesium Level 1.7 MG/DL (1.8-2.4) L Total Bilirubin 1.7 MG/DL (0.2-1.0) H Direct Bilirubin 0.3 MG/DL (0.0-0.3) Aspartate Amino Transf (AST/SGOT) 32 U/L (15-37) Alanine Aminotransferase (ALT/SGPT) 23 U/L (12-78) Alkaline Phosphatase 79 U/L (46-116) Total Protein 7.3 G/DL (6.4-8.2) Albumin 2.3 G/DL (3.4-5.0) L Globulin 5.0 g/dL Albumin/Globulin Ratio 0.5 (1.0-2.7) L Prothrombin Time 11.7 SEC (9.30-11.50) H Prothromb Time International Ratio 1.1 (0.9-1.1) Activated Partial Thromboplast Time 27 SEC (23-33) Arterial Blood pH 7.351 (7.350-7.450) Arterial Blood Partial Pressure CO2 79.4 mmHg (35.0-45.0) *H Arterial Blood Partial Pressure O2 58.9 mmHg (75.0-100.0) L Arterial Blood HCO3 42.9 mmol/L (22.0-26.0) *H Arterial Blood Oxygen Saturation 87.6 % (95-100) *L Arterial Blood Base Excess 14.9 (-2-2) *H Jeremiah Test Positive Current Medications Medications (Trade) Dose Ordered Sig/Zelda Route PRN Reason Start Time Stop Time Status Last Admin Dose Admin Acetaminophen (Tylenol) 650 mg Q4H PRN NG Temp >100.5 06/29/20 10:15 07/29/20 10:14 07/02/20 00:53 Acetaminophen (Tylenol) 650 mg Q6H PRN NG Mild Pain (Pain Scale 1-3) 06/29/20 10:15 07/29/20 10:14 Chlorhexidine Gluconate (Inna-Hex 2%) 1 applic DAILY@2000 TOPIC 05/30/20 20:00 08/28/20 19:59 07/03/20 20:13 Dextrose (Dextrose 50%) 25 ml Q30M PRN IV Hypoglycemia 06/05/20 10:45 09/03/20 10:44 Dextrose (Dextrose 50%) 50 ml Q30M PRN IV Hypoglycemia 06/05/20 10:45 09/03/20 10:44 Dextrose/Sodium Chloride 1,000 ml @ 50 mls/hr Q20H IV 06/24/20 16:30 07/24/20 16:29 07/03/20 20:00 Docusate Sodium (Colace) 100 mg Q12HR GT 06/07/20 21:00 07/07/20 20:59 07/03/20 20:13 Enoxaparin Sodium (Lovenox) 40 mg DAILY SUBQ 05/30/20 10:00 08/28/20 09:59 07/03/20 10:03 Fentanyl Citrate 250 ml @ 1 mls/hr Q24H IV 07/03/20 11:00 07/05/20 10:59 07/04/20 02:21 Furosemide (Lasix) 40 mg DAILY IV 06/22/20 09:00 07/22/20 08:59 07/03/20 10:02 Insulin Aspart (NovoLOG) EVERY 6 HOURS SUBQ 06/07/20 00:00 09/03/20 11:59 07/04/20 06:27 Lidocaine HCl (Xylocaine 1% 30ml) 30 ml NOW PRN INJ Radiology Procedure 07/04/20 10:45 07/07/20 10:44 Midazolam HCl 100 mg/Sodium Chloride 200 ml @ 0 mls/hr Q24H PRN IV sedation 07/03/20 20:00 07/05/20 19:59 07/04/20 08:24 Midodrine (Pro-Amatine) 10 mg Q8HR GT 06/30/20 14:00 09/12/20 13:59 07/04/20 14:09 Polyethylene Glycol (Miralax) 17 gm BEDTIME GT 06/07/20 21:00 07/07/20 20:59 07/03/20 20:13 Sodium Bicarbonate (Sodium Bicarbonate 4%) 1 ml NOW PRN IV Radiology Procedure 07/04/20 10:45 07/07/20 10:44 Vitamin D (Vitamin D) 5,000 unit DAILY GT 06/28/20 09:00 07/28/20 08:59 07/03/20 12:10 Colt Arana MD Jul 04, 2020 14:38
--- NOTE | 2020-07-04 14:59 | Operative Note - Dictated ---
DATE OF OPERATION: 07/04/2020 PREOPERATIVE DIAGNOSES: 1. Respiratory insufficiency requiring prolonged ventilatory support. 2. COVID positive. POSTOPERATIVE DIAGNOSES: 1. Respiratory insufficiency requiring prolonged ventilatory support. 2. COVID positive. OPERATION PERFORMED: 1. Open tracheostomy. 2. Bronchoscopy with deep suctioning and mucus plug secretion suctioned. ATTENDING SURGEON: Az Devine MD. HORTICULTURAL SPECIALTY GROWER: None. ANESTHESIOLOGIST: Jeremy Hdz MD. ANESTHESIA: General WOOD PATTERNMAKER. ESTIMATED BLOOD LOSS: Minimal. IV FLUIDS: Please see anesthesia records. COMPLICATIONS: None. DRAINS: None. COUNTS: Sponge and needle count correct x2. WOUND CLASSIFICATION: Class 3. SPECIMENS: None. IMPLANTS: An 8-Tajik Shiley XLT tracheostomy. INDICATIONS FOR PROCEDURE: This is a 50-year-old female COVID positive, intubated, respiratory support in the intensive care unit, unable to extubate, requiring prolonged ventilatory support, tracheostomy indicated. Recommended and discussed with critical care team, pulmonology, medical teams, and the patient's family in detail. Consent obtained. The patient scheduled for 07/04/2020. OPERATIVE NOTE: The patient was taken to the operating room, intubated in the intensive care unit, placed on the operating bed in the supine position with bilateral arms down. All bony prominences were well padded. SCDs placed. Preoperative time-out taken identifying the patient, procedure, operative, and surgical staff. General anesthesia was induced. The patient was already intubated prior. Most tubes and lines were in place. Shoulder roll was placed. Neck was hyperextended. Neck was prepped, and draped in standard surgical fashion. Anatomical landmarks identified. Local anesthetic infiltrated. Skin incision made two fingerbreadths above the sternal notch. Skin incision carried down through subcutaneous tissue, platysma to the median raphae, which was identified and mobilized laterally. Trachea identified. Tracheal hook placed. First, second, third tracheal ring identified and gently dissected out. A window made between the first and second tracheal rings and the ET tube identified. ET tube slowly withdrawn by the anesthesiologist. Above the level of the cords and 8-Tajik Shiley tracheostomy XLT given the patient's size was inserted under direct visualization without complication. The balloon insufflated and the patient ventilated. Good end-tidal CO2 noted. A 0.4 Monocryl was used for reapproximation and to the ring of the trach. Trach tie and dressings placed. The patient tolerated the procedure well. The patient was noted with mild desaturation post procedure as she was saturating in the mid 90s and in the high 80s and after trach was identified to be a little bit lower. Therefore, bronchoscopy was performed. I did identify multiple mucus plugs likely sitting around the prior balloon, which were evacuated. The patient began saturating 100% following this. The bronchoscopy performed by entering through the tracheostomy and the patient was the patient ventilated identifying both the right and left bronchus going down the shun, clearing all secretions were identified and suctioning as necessary. No other abnormalities identified. The patient tolerated bronchoscopy well. Chest x-ray performed and identified. Post procedure, the patient was taken to intensive care unit. Az Devine M.D. DR: LEEANN JOB#: [id number] CC:
--- NOTE | 2020-07-04 15:50 | Diagnostic Imaging Report ---
Indication: Bilateral lower extremity edema, shortness of breath, respiratory distress Technique: Grayscale and duplex images of the bilateral lower extremity veins Comparison: Findings: On the right, presumably post images demonstrate no evidence of intraluminal thrombus within the common femoral, femoral, or popliteal veins. However, acute thrombus is visualized within the posterior tibial vein an within the peroneal vein. On the left, grayscale and duplex images demonstrate no evidence of intraluminal thrombus. Normal phasic Doppler waveforms, demonstrating normal augmentation response and no evidence of valvular insufficiency. Greater saphenous vein(s) and tibial veins are patent. Normal compressibility. Impression: Positive for right posterior tibial and peroneal supraclavicular calf vein thrombosis. Negative for suprageniculate deep venous thrombosis Negative for deep venous thrombosis on the left
[2020-07-04] MEDS: D5 1/2NS 1,000 ML IV SCH (16:11)
--- NOTE | 2020-07-04 19:10 | NUR ---
NURSE NOTES: Received patient from RAKEL Reyes. patient is sedated. sinus rhythm on the monitor. trach to vent AC 15 TV 600 FiO2 80% PEEP 7. NGT in place and tube feeding running Vital AF @40ml/hr. marrero in place and draining well to gravity. rectal tube in place and draining well to gravity. LINDA PICC in place and dressing clean dry and intact. bed to lowest position and locked. call light within easy reach. side rails up x2. will continue plan fo care.
[2020-07-04] MEDS: Dyna-Hex 2% Top Sol 2oz TOPIC SCH (20:33)
[2020-07-04] MEDS: Miralax 17gm pkt GT SCH (21:01)
[2020-07-05] VITALS (36 sets, daily range): BP systolic 97–125; BP diastolic 55–79
[2020-07-05] MEDS: Acetaminophen 650mg/20.3ml NG PRN ×2 (03:59→12:45)
--- NOTE | 2020-07-05 04:44 | NUR ---
NURSE NOTES: bed bath and oral care performed. vital signs stable
[2020-07-05 05:05] LABS: BASOPHILS % (AUTO) 1.1 % (0.0-2.0); EOSINOPHILS % (AUTO) 3.7 % (0.0-3.0); HEMATOCRIT 27.1 % (37.0-47.0); HEMOGLOBIN 8.1 G/DL (12.0-16.0); LYMPHOCYTES % (AUTO) 29.3 % (20.0-45.0); MEAN CORPUSCULAR VOLUME 97 FL (80-99); MONOCYTES % (AUTO) 9.8 % (1.0-10.0); PLATELET COUNT 213 K/UL (150-450); RED CELL DISTRIBUTION WIDTH 19.3 % (11.6-14.8); WHITE BLOOD COUNT 6.8 K/UL (4.8-10.8)
[2020-07-05 05:27] LABS: ANION GAP 0 mmol/L (5-15); BLOOD UREA NITROGEN 12 mg/dL (7-18); CALCIUM 9.3 MG/DL (8.5-10.1); CHLORIDE 99 MMOL/L (98-107); CREATININE 0.5 MG/DL (0.55-1.30); POTASSIUM 3.4 MMOL/L (3.5-5.1); SODIUM 141 MMOL/L (136-145)
[2020-07-05 05:30] LABS: CARBON DIOXIDE 43 MMOL/L (21-32)
[2020-07-05] MEDS: Midodrine 10mg tab GT SCH ×3 (05:39→22:20)
[2020-07-05] MEDS: NovoLOG Insulin Flexpen SUBQ SCH ×3 (06:09→18:00)
--- NOTE | 2020-07-05 06:26 | Hematology/Onc Progress Note ---
Assessment/Plan Assessment/Plan # Deep vein thrombosis of the right calf --> given onoing anemia and low plts --> consider ivc if bleeding-->if counts stable 07/08 consider placement --> once stable, for radiology and ivc filter placement # Thrombocytopenia is due to infection/underlying covid19+++ --> ABX ceftriaxone -->zosyn-->off --> on steriods likely cause of initial wbc --> per pulm --> plt 107->156-->192-->205 --> smear reviewed # Anemia due to chronic disease --> hgb goal is >7 --> transfuse prn --> ferritin is >1000 --> hold off on iron --> 10-->9.8->9-->8-->8.2-->9.4-->8.1-->9.9-->8.7-->9.7-->9.5-->8.1-->8.8 # Elevated ddimer due to covid19++ --> duplex legs is negative --> underlying covid rx # Hypoxia -> due to covid19 # Hypoxemia --> rx same as above # Respiratory failure --> on vent/trach --> per pulm # Pneumonia due to COVID-19 virus --> per pulm rx -> sp remdesivir # Diabetes mellitus out of control --> hgb a1c goal <7 # Poor prognosis # Dvt ppx lovenox sq Appreciate consultation and bowen RN Subjective Allergies: Coded Allergies: No Known Allergies (Unverified , 05/28/20) All Systems: reviewed and negative except above Subjective 06/10 nv, on vent, with ogt, on fentanyl and versed, plt stable 06/11 nv, vent adjusted is on ogt, meds reviewed 06/12 nv, vent, meds noted, labs noted, no bleeding, hgb 10.4 06/13 nv, is on vent, meds reviewed, no bleeding, cbc reviewed 06/14 nv, on vent, tachy, labs reviewed, gross hematuria, febrile overnight, abx 06/17 nv, on vent, labs noted, no major changes, feeling better overnight 06/18 nv, meds reviewed, labs noted, no major events, hgb 8.6 06/19 nv, remains intubated, with fluids, labs reviewed, meds noted 06/20 nv, intubated remains on restraints, meds noted as well, as labs 06/21 nv, remains on vent, on restraints, meds reviewed, labs noted 06/22: covering Dr. Del Cid no acute events 06/23 sedated, on vent, nv, intubated, meds reviewed, versed 06/24 nv, on vent, no night sweats, no bleeding, remains in icu 06/25 nv, on vent, icu, meds noted, no bleeding, comfortable 06/26 nv, on versed, icu, weaning parameters, labs noted 06/27 nv, overnight fighting vent, as per pulm fentanyl on board 06/28 nv, on vent, labs reviewed, as per pulm, meds noted 06/30 nv, icu, labs pending, is on fentanyl, versed, no new changes 07/01 nv, icu, is on vent, labs pending, no new changes per rn 07/02 nv, icu is on vent, labs noted, hgb is stable 07/03 nv, icu, is on vent, potential trrach when stable, cbc reviewed 07/04 icu, nv, labs are noted, stable for trach today dw Rn Dl 07/05 icu, nv, on vent, with ng and picc in place, labs noted, s/p trach Objective Objective Current Medications Medications (Trade) Dose Ordered Sig/Zelda Route PRN Reason Start Time Stop Time Status Last Admin Dose Admin Acetaminophen (Tylenol) 650 mg Q4H PRN NG Temp >100.5 06/29/20 10:15 07/29/20 10:14 07/05/20 03:59 Acetaminophen (Tylenol) 650 mg Q6H PRN NG Mild Pain (Pain Scale 1-3) 06/29/20 10:15 07/29/20 10:14 Chlorhexidine Gluconate (Inna-Hex 2%) 1 applic DAILY@1999 TOPIC 05/30/20 20:00 08/28/20 19:59 07/04/20 20:33 Dextrose (Dextrose 50%) 25 ml Q30M PRN IV Hypoglycemia 06/05/20 10:45 09/03/20 10:44 Dextrose (Dextrose 50%) 50 ml Q30M PRN IV Hypoglycemia 06/05/20 10:45 09/03/20 10:44 Dextrose/Sodium Chloride 1,000 ml @ 50 mls/hr Q20H IV 06/24/20 16:30 07/24/20 16:29 07/04/20 16:11 Docusate Sodium (Colace) 100 mg Q12HR GT 06/07/20 21:00 07/07/20 20:59 07/04/20 21:01 Enoxaparin Sodium (Lovenox) 40 mg DAILY SUBQ 05/30/20 10:00 08/28/20 09:59 07/03/20 10:03 Fentanyl Citrate 250 ml @ 1 mls/hr Q24H IV 07/03/20 11:00 07/05/20 10:59 07/04/20 21:17 Furosemide (Lasix) 40 mg DAILY IV 06/22/20 09:00 07/22/20 08:59 07/03/20 10:02 Insulin Aspart (NovoLOG) EVERY 6 HOURS SUBQ 06/07/20 00:00 09/03/20 11:59 07/05/20 06:09 Lidocaine HCl (Xylocaine 1% 30ml) 30 ml NOW PRN INJ Radiology Procedure 07/04/20 10:45 07/07/20 10:44 Midazolam HCl 100 mg/Sodium Chloride 200 ml @ 0 mls/hr Q24H PRN IV sedation 07/03/20 20:00 07/05/20 19:59 07/04/20 21:15 Midodrine (Pro-Amatine) 10 mg Q8HR GT 06/30/20 14:00 09/12/20 13:59 07/05/20 05:39 Polyethylene Glycol (Miralax) 17 gm BEDTIME GT 06/07/20 21:00 07/07/20 20:59 07/04/20 21:01 Sodium Bicarbonate (Sodium Bicarbonate 4%) 1 ml NOW PRN IV Radiology Procedure 07/04/20 10:45 07/07/20 10:44 Vitamin D (Vitamin D) 5,000 unit DAILY GT 06/28/20 09:00 07/28/20 08:59 07/03/20 12:10 Last 24 Hour Vital Signs Date Time Temp Pulse Resp B/P (MAP) Pulse Ox O2 Delivery O2 Flow Rate FiO2 07/05/20 06:00 103 19 113/65 (81) 97 07/05/20 05:30 107 21 117/60 (79) 98 07/05/20 05:00 110 21 108/65 (79) 98 07/05/20 04:30 112 23 102/55 (71) 07/05/20 04:29 101.0 07/05/20 04:00 101.0 106 22 102/55 (71) 95 07/05/20 04:00 80 07/05/20 04:00 Mechanical Ventilator Mechanical Ventilator 07/05/20 04:00 107 07/05/20 04:00 22 Endotracheal Tube 80 07/05/20 04:00 22 102/61 Endotracheal Tube 80 07/05/20 03:30 107 22 104/62 (76) 95 07/05/20 03:18 103 18 80 07/05/20 03:00 102 18 98/60 (73) 98 07/05/20 03:00 20 Endotracheal Tube 80 07/05/20 03:00 20 99/61 Endotracheal Tube 80 07/05/20 02:30 103 18 101/61 (74) 98 07/05/20 02:00 101 19 103/60 (74) 98 07/05/20 02:00 19 Endotracheal Tube 80 07/05/20 02:00 19 100/62 Endotracheal Tube 80 07/05/20 01:30 101 18 101/62 (75) 98 07/05/20 01:00 101 20 103/63 (76) 98 07/05/20 01:00 19 Endotracheal Tube 80 07/05/20 01:00 19 105/59 Endotracheal Tube 80 07/05/20 00:55 100 19 80 07/05/20 00:30 100 18 97/62 (74) 98 07/05/20 00:00 17 Endotracheal Tube 80 07/05/20 00:00 17 99/63 Endotracheal Tube 80 07/05/20 00:00 100.5 99 17 97/61 (73) 99 07/05/20 00:00 Mechanical Ventilator Mechanical Ventilator 07/04/20 23:16 99 16 80 07/04/20 23:00 97 17 99/59 (72) 99 07/04/20 23:00 17 Endotracheal Tube 80 07/04/20 23:00 17 107/63 Endotracheal Tube 80 07/04/20 22:30 97 18 103/61 (75) 99 07/04/20 22:00 95 17 104/59 (74) 99 07/04/20 22:00 17 Endotracheal Tube 80 07/04/20 22:00 17 105/63 Endotracheal Tube 80 07/04/20 21:30 96 16 106/61 (76) 99 07/04/20 21:23 96 17 80 07/04/20 21:17 19 99/67 Endotracheal Tube 80 07/04/20 21:15 19 Endotracheal Tube 80 07/04/20 21:00 97 17 99/62 (74) 99 07/04/20 21:00 17 Endotracheal Tube 80 07/04/20 21:00 17 104/62 Endotracheal Tube 80 07/04/20 20:30 96 19 97/60 (72) 99 07/04/20 20:00 17 Endotracheal Tube 80 07/04/20 20:00 17 100/62 Endotracheal Tube 80 07/04/20 20:00 99.2 97 16 104/60 (75) 99 07/04/20 20:00 80 07/04/20 20:00 98 07/04/20 20:00 Mechanical Ventilator Mechanical Ventilator 07/04/20 19:30 98 18 103/63 (76) 99 07/04/20 19:28 96 16 80 07/04/20 19:00 96 17 101/64 (76) 100 07/04/20 19:00 17 Mechanical Ventilator 80 07/04/20 19:00 20 103/63 Mechanical Ventilator 80 07/04/20 18:00 15 Mechanical Ventilator 80 07/04/20 18:00 15 107/62 Mechanical Ventilator 80 07/04/20 18:00 93 16 107/62 (77) 99 07/04/20 17:00 91 15 106/64 (78) 98 07/04/20 17:00 16 Mechanical Ventilator 80 07/04/20 17:00 17 106/64 Mechanical Ventilator 80 07/04/20 16:15 80 07/04/20 16:00 89 07/04/20 16:00 16 Mechanical Ventilator 100 07/04/20 16:00 16 107/67 Mechanical Ventilator 100 07/04/20 16:00 100 07/04/20 16:00 97.6 89 15 107/67 (80) 100 07/04/20 16:00 Mechanical Ventilator Mechanical Ventilator 07/04/20 15:00 88 15 100 07/04/20 15:00 19 Mechanical Ventilator 100 07/04/20 15:00 19 101/69 Mechanical Ventilator 100 07/04/20 15:00 96 15 105/71 (82) 100 07/04/20 14:00 17 Mechanical Ventilator 100 07/04/20 14:00 17 128/79 Mechanical Ventilator 100 07/04/20 14:00 94 16 101/69 (80) 100 07/04/20 13:00 101 18 128/79 (95) 100 07/04/20 13:00 19 Endotracheal Tube 100 07/04/20 13:00 18 128/79 Endotracheal Tube 100 07/04/20 12:30 Mechanical Ventilator Mechanical Ventilator 07/04/20 12:30 100 07/04/20 12:25 17 Endotracheal Tube 100 07/04/20 12:25 18 142/90 Endotracheal Tube 100 07/04/20 12:12 110 16 100 07/04/20 12:10 97.8 07/04/20 12:10 98 22 92 07/04/20 12:06 100 17 144/87 (106) 94 07/04/20 12:00 109 07/04/20 11:00 100 24 120/75 (90) 98 07/04/20 11:00 19 Endotracheal Tube 70 07/04/20 11:00 19 128/73 Endotracheal Tube 70 07/04/20 10:00 18 Endotracheal Tube 70 07/04/20 10:00 17 123/78 70 07/04/20 10:00 99 28 123/78 (93) 91 07/04/20 09:00 98 20 120/74 (89) 97 07/04/20 09:00 21 Endotracheal Tube 70 07/04/20 09:00 21 128/78 Endotracheal Tube 70 07/04/20 08:24 29 Mechanical Ventilator 70 07/04/20 08:00 100 07/04/20 08:00 Mechanical Ventilator Mechanical Ventilator 07/04/20 08:00 20 123/77 Mechanical Ventilator 70 07/04/20 08:00 70 07/04/20 08:00 98.7 96 20 123/77 (92) 100 07/04/20 07:30 97 20 115/95 (102) 97 07/04/20 07:00 95 21 120/86 (97) 99 07/04/20 07:00 24 Mechanical Ventilator 70 07/04/20 07:00 24 125/85 Mechanical Ventilator 70 07/04/20 07:00 98 21 70 07/04/20 06:45 22 Mechanical Ventilator 70 07/04/20 06:45 22 120/86 Mechanical Ventilator 70 07/04/20 06:30 20 Mechanical Ventilator 70 07/04/20 06:30 20 118/76 Mechanical Ventilator 70 07/04/20 06:30 97 12 07/04/20 06:30 97 12 131/69 (89) 95 07/04/20 06:15 22 Mechanical Ventilator 70 07/04/20 06:15 22 131/69 Mechanical Ventilator 70 07/04/20 06:00 20 Mechanical Ventilator 70 07/04/20 06:00 20 124/77 Mechanical Ventilator 70 07/04/20 06:00 100 21 123/80 (94) 89 07/04/20 05:30 91 20 118/71 (87) 100 07/04/20 05:00 19 Mechanical Ventilator 70 07/04/20 05:00 19 106/65 Mechanical Ventilator 70 07/04/20 05:00 90 19 133/73 (93) 96 07/04/20 04:30 92 20 106/64 (78) 100 07/04/20 04:00 70 07/04/20 04:00 22 70 07/04/20 04:00 22 107/70 Mechanical Ventilator 70 07/04/20 04:00 98.8 91 22 111/64 (80) 100 07/04/20 04:00 Mechanical Ventilator Mechanical Ventilator 07/04/20 04:00 88 07/04/20 03:30 86 21 105/64 (78) 97 07/04/20 03:00 20 Mechanical Ventilator 70 07/04/20 03:00 20 102/62 Mechanical Ventilator 70 07/04/20 03:00 88 22 100/60 (73) 100 07/04/20 02:30 90 19 110/74 (86) 94 07/04/20 02:21 17 101/65 Mechanical Ventilator 70 07/04/20 02:00 85 18 96/59 (71) 100 07/04/20 02:00 19 70 07/04/20 02:00 19 88/57 Mechanical Ventilator 70 07/04/20 01:30 87 17 99/60 (73) 98 07/04/20 01:20 87 16 70 07/04/20 01:00 86 17 96/65 (75) 95 07/04/20 01:00 18 Mechanical Ventilator 70 07/04/20 01:00 18 95/57 Mechanical Ventilator 70 07/04/20 00:30 88 18 99/59 (72) 99 07/04/20 00:00 87 07/04/20 00:00 17 Mechanical Ventilator 70 07/04/20 00:00 17 96/59 Mechanical Ventilator 70 07/04/20 00:00 Mechanical Ventilator Mechanical Ventilator 07/04/20 00:00 98.9 86 16 97/58 (71) 100 07/04/20 00:00 70 07/03/20 23:30 86 17 97/62 (74) 100 07/03/20 23:00 16 Mechanical Ventilator 70 07/03/20 23:00 17 93/57 Mechanical Ventilator 70 07/03/20 23:00 86 17 97/61 (73) 100 07/03/20 22:45 18 Mechanical Ventilator 70 07/03/20 22:30 87 16 92/57 (69) 100 07/03/20 22:30 17 Mechanical Ventilator 70 07/03/20 22:00 17 Non-Rebreather 70 07/03/20 22:00 17 87/56 Mechanical Ventilator 70 07/03/20 22:00 89 18 94/59 (71) 100 07/03/20 21:30 91 18 97/57 (70) 100 07/03/20 21:00 19 Mechanical Ventilator 70 07/03/20 21:00 18 93/60 Mechanical Ventilator 70 07/03/20 21:00 91 20 96/56 (69) 100 07/03/20 20:30 90 18 92/61 (71) 100 07/03/20 20:17 21 Mechanical Ventilator 70 07/03/20 20:00 70 07/03/20 20:00 21 97/58 Mechanical Ventilator 70 07/03/20 20:00 98.8 93 22 110/88 (95) 100 07/03/20 20:00 93 07/03/20 20:00 Mechanical Ventilator Mechanical Ventilator 07/03/20 19:30 88 18 95/59 (71) 98 07/03/20 19:23 90 15 70 07/03/20 19:00 19 97/58 Mechanical Ventilator 70 07/03/20 19:00 92 21 96/58 (71) 100 07/03/20 18:00 18 98/58 Endotracheal Tube 70 07/03/20 18:00 17 Endotracheal Tube 70 07/03/20 18:00 92 16 96/60 (72) 98 07/03/20 17:00 16 93/57 Endotracheal Tube 70 07/03/20 17:00 17 Endotracheal Tube 70 07/03/20 17:00 88 16 91/63 (72) 100 07/03/20 16:00 100 07/03/20 16:00 Mechanical Ventilator Mechanical Ventilator 07/03/20 16:00 97.6 91 20 100/63 (75) 96 07/03/20 16:00 16 100/63 Endotracheal Tube 70 07/03/20 16:00 17 Endotracheal Tube 70 07/03/20 16:00 70 07/03/20 15:21 93 17 70 07/03/20 15:00 93 19 92/59 (70) 99 07/03/20 15:00 19 92/59 Endotracheal Tube 70 07/03/20 15:00 19 Endotracheal Tube 70 07/03/20 14:00 18 91/59 Endotracheal Tube 70 07/03/20 14:00 18 70 07/03/20 14:00 98 17 91/59 (70) 99 07/03/20 13:47 92 16 70 07/03/20 13:00 17 102/61 Endotracheal Tube 70 07/03/20 13:00 17 Endotracheal Tube 70 07/03/20 13:00 97 18 102/61 (75) 99 07/03/20 12:00 70 07/03/20 12:00 19 106/68 Endotracheal Tube 70 07/03/20 12:00 27 Endotracheal Tube 30 07/03/20 12:00 98.3 99 22 108/74 (85) 97 07/03/20 12:00 96 07/03/20 12:00 Mechanical Ventilator Mechanical Ventilator 07/03/20 11:30 23 121/81 Endotracheal Tube 70 07/03/20 11:11 108 19 70 07/03/20 11:00 15 Endotracheal Tube 70 07/03/20 11:00 15 121/81 Endotracheal Tube 70 07/03/20 11:00 99 21 121/81 (94) 93 07/03/20 10:18 15 Endotracheal Tube 70 07/03/20 10:00 92 19 96/62 (73) 98 07/03/20 10:00 15 Endotracheal Tube 70 07/03/20 10:00 15 96/62 Endotracheal Tube 70 07/03/20 10:00 100 21 119/77 (91) 91 07/03/20 09:53 96 15 70 07/03/20 09:00 15 Endotracheal Tube 70 07/03/20 09:00 15 97/66 Endotracheal Tube 70 07/03/20 09:00 94 21 97/66 (76) 98 07/03/20 08:00 70 07/03/20 08:00 15 Endotracheal Tube 70 07/03/20 08:00 15 103/62 Endotracheal Tube 70 07/03/20 08:00 95 18 103/62 (76) 99 07/03/20 08:00 Mechanical Ventilator Mechanical Ventilator 07/03/20 08:00 94 07/03/20 08:00 98.9 07/03/20 07:24 91 15 70 07/03/20 07:00 99.6 92 15 94/58 (70) 98 07/03/20 07:00 15 Mechanical Ventilator 70 07/03/20 07:00 15 94/58 Mechanical Ventilator 70 07/03/20 06:30 92 15 Intake and Output 07/04/20 07/05/20 19:00 07:00 Intake Total 1105.17 ml 1193 ml Output Total 1025 ml 420 ml Balance 80.17 ml 773 ml Free Water 60 ml IV Total 885.17 ml 693 ml Tube Feeding 220 ml 440 ml Output Urine Total 1015 ml 420 ml Stool Total 10 ml # Bowel Movements 1 Labs Test 07/02/20 08:20 07/03/20 03:30 07/03/20 06:03 07/04/20 04:40 Arterial Blood pH 7.361 (7.350-7.450) Arterial Blood Partial Pressure CO2 77.8 mmHg (35.0-45.0) Arterial Blood Partial Pressure O2 72.7 mmHg (75.0-100.0) Arterial Blood HCO3 43.1 mmol/L (22.0-26.0) Arterial Blood Oxygen Saturation 93.1 % (95-100) Arterial Blood Base Excess 15.3 (-2-2) Jeremiah Test Positive Stool Occult Blood Negative (NEGATIVE) White Blood Count 5.2 K/UL (4.8-10.8) 6.1 K/UL (4.8-10.8) Red Blood Count 2.86 M/UL (4.20-5.40) 3.03 M/UL (4.20-5.40) Hemoglobin 8.2 G/DL (12.0-16.0) 8.8 G/DL (12.0-16.0) Hematocrit 27.1 % (37.0-47.0) 29.0 % (37.0-47.0) Mean Corpuscular Volume 95 FL (80-99) 96 FL (80-99) Mean Corpuscular Hemoglobin 28.6 PG (27.0-31.0) 28.9 PG (27.0-31.0) Mean Corpuscular Hemoglobin Concent 30.2 G/DL (32.0-36.0) 30.2 G/DL (32.0-36.0) Red Cell Distribution Width 18.2 % (11.6-14.8) 18.8 % (11.6-14.8) Platelet Count 212 K/UL (150-450) 225 K/UL (150-450) Mean Platelet Volume 7.6 FL (6.5-10.1) 8.4 FL (6.5-10.1) Neutrophils (%) (Auto) 58.6 % (45.0-75.0) 56.6 % (45.0-75.0) Lymphocytes (%) (Auto) 26.9 % (20.0-45.0) 27.7 % (20.0-45.0) Monocytes (%) (Auto) 8.0 % (1.0-10.0) 9.2 % (1.0-10.0) Eosinophils (%) (Auto) 5.5 % (0.0-3.0) 5.5 % (0.0-3.0) Basophils (%) (Auto) 1.0 % (0.0-2.0) 1.1 % (0.0-2.0) Sodium Level 142 MMOL/L (136-145) 142 MMOL/L (136-145) Potassium Level 3.3 MMOL/L (3.5-5.1) 3.5 MMOL/L (3.5-5.1) Chloride Level 99 MMOL/L (98-107) 98 MMOL/L (98-107) Carbon Dioxide Level 43 MMOL/L (21-32) 44 MMOL/L (21-32) Blood Urea Nitrogen 10 mg/dL (7-18) 11 mg/dL (7-18) Creatinine 0.5 MG/DL (0.55-1.30) 0.4 MG/DL (0.55-1.30) Estimat Glomerular Filtration Rate > 60 mL/min (>60) > 60 mL/min (>60) Glucose Level 102 MG/DL (74-106) 126 MG/DL (74-106) Calcium Level 9.2 MG/DL (8.5-10.1) 9.2 MG/DL (8.5-10.1) Phosphorus Level 3.5 MG/DL (2.5-4.9) 3.9 MG/DL (2.5-4.9) Magnesium Level 2.0 MG/DL (1.8-2.4) 1.7 MG/DL (1.8-2.4) Total Bilirubin 1.5 MG/DL (0.2-1.0) 1.7 MG/DL (0.2-1.0) Direct Bilirubin 0.3 MG/DL (0.0-0.3) 0.3 MG/DL (0.0-0.3) Aspartate Amino Transf (AST/SGOT) 32 U/L (15-37) 32 U/L (15-37) Alanine Aminotransferase (ALT/SGPT) 23 U/L (12-78) 23 U/L (12-78) Alkaline Phosphatase 78 U/L (46-116) 79 U/L (46-116) C-Reactive Protein, Quantitative 6.1 mg/dL (0.00-0.90) Pro-B-Type Natriuretic Peptide 1026 pg/mL (0-125) Total Protein 7.0 G/DL (6.4-8.2) 7.3 G/DL (6.4-8.2) Albumin 2.4 G/DL (3.4-5.0) 2.3 G/DL (3.4-5.0) Globulin 4.6 g/dL 5.0 g/dL Albumin/Globulin Ratio 0.5 (1.0-2.7) 0.5 (1.0-2.7) Anion Gap 1 mmol/L (5-15) Test 07/04/20 07:19 07/04/20 09:37 07/05/20 03:30 Prothrombin Time 11.7 SEC (9.30-11.50) Prothromb Time International Ratio 1.1 (0.9-1.1) Activated Partial Thromboplast Time 27 SEC (23-33) Arterial Blood pH 7.351 (7.350-7.450) Arterial Blood Partial Pressure CO2 79.4 mmHg (35.0-45.0) Arterial Blood Partial Pressure O2 58.9 mmHg (75.0-100.0) Arterial Blood HCO3 42.9 mmol/L (22.0-26.0) Arterial Blood Oxygen Saturation 87.6 % (95-100) Arterial Blood Base Excess 14.9 (-2-2) Jeremiah Test Positive White Blood Count 6.8 K/UL (4.8-10.8) Red Blood Count 2.80 M/UL (4.20-5.40) Hemoglobin 8.1 G/DL (12.0-16.0) Hematocrit 27.1 % (37.0-47.0) Mean Corpuscular Volume 97 FL (80-99) Mean Corpuscular Hemoglobin 29.0 PG (27.0-31.0) Mean Corpuscular Hemoglobin Concent 30.0 G/DL (32.0-36.0) Red Cell Distribution Width 19.3 % (11.6-14.8) Platelet Count 213 K/UL (150-450) Mean Platelet Volume 8.5 FL (6.5-10.1) Neutrophils (%) (Auto) 56.0 % (45.0-75.0) Lymphocytes (%) (Auto) 29.3 % (20.0-45.0) Monocytes (%) (Auto) 9.8 % (1.0-10.0) Eosinophils (%) (Auto) 3.7 % (0.0-3.0) Basophils (%) (Auto) 1.1 % (0.0-2.0) Sodium Level 141 MMOL/L (136-145) Potassium Level 3.4 MMOL/L (3.5-5.1) Chloride Level 99 MMOL/L (98-107) Carbon Dioxide Level 43 MMOL/L (21-32) Anion Gap 0 mmol/L (5-15) Blood Urea Nitrogen 12 mg/dL (7-18) Creatinine 0.5 MG/DL (0.55-1.30) Estimat Glomerular Filtration Rate > 60 mL/min (>60) Glucose Level 134 MG/DL (74-106) Calcium Level 9.3 MG/DL (8.5-10.1) Height (Feet): 5 Height (Inches): 6.00 Weight (Pounds): 239 Objective GeNL: nv Pulm: vent/trach++ CV: rrr Abd: soft, nt, nd Ext: no cce Myron Condon MD Jul 05, 2020 06:26
--- NOTE | 2020-07-05 06:45 | NUR ---
CASE MANAGEMENT:REVIEW 07/05/20 SI: COVID PNEUMONIA POD #1...S/P TRACHEOSTOMY AND BRONCHOSCOPY 101.0 112 23 102/55 98% ON VENT SUPPORT W/80% FIO2 PEEP~7.9 H/H-8.1/27.1 K-3.4 CO2+43 IS:VERSED GTT PRN FENTANYL GTT IV LASIX QD IV PROTONIX Q12 LOVENOX SQ QD IVF@50/HR MIDODRINE NG Q8HRS : ICU STATUS DCP: FROM HOME PLAN: MONITOR CXR ~ STABLE TO WORSE ON LEFT WILL NEE SUBACUTE PLACEMENT
--- NOTE | 2020-07-05 07:29 | NUR ---
NURSE HAND-OFF REPORT: Latest Vital Signs: Temperature 101.0 , Pulse 97 , B/P 107 /65 , Respiratory Rate 17 , O2 SAT 99 , Endotracheal Tube, O2 Flow Rate . Vital Sign Comment: stable EKG Rhythm: Sinus Rhythm Rhythm change?: N Notified?: Babs EDWARDS MD Response: Latest Meyers Fall Score: 70 Fall Risk: High Risk Safety Measures: Call light Within Reach, Bed Alarm Zone 1, Side Rails Side Rails x2, Bed position Low and Locked. Fall Precautions: Yellow Socks Report given to RAKEL Kwan.
--- NOTE | 2020-07-05 07:30 | NUR ---
NURSE NOTES: Report received from Dixie ELLINGTON.Pt sedated,noted no resp distress with trach tube to vent,AC15,TV 600 Fio2 80%,Peep 5,no signs of pain or discomfort SR on the monitor, NGT feeding ,Vital AF 1.2 at 50 ml/hr in placed per auscultation,,no residual noted, Lennon cath draining jordyn urine ,rectal tube to dark brown liquid stools,skin warm and dry with IV PICC line to LINDA with Fentanyl drip at 15 mcg /hr and Cersed 6 mg /hr,SR up x2 HOB elevated bed lock in lowest position ,will continue with plans of care.
--- NOTE | 2020-07-05 07:34 | NUR ---
RESPIRATORY NOTE: PT received on AC/VC: 15, 600 80%,+7. Alarms are on and audible. Vent circuit is secure and out of the way. Airway is secure and patent. No s/s of respiratory distress noted at this time. Will continue to closely monitor.
--- NOTE | 2020-07-05 08:32 | 48 Hour Post Anesthesia Eval ---
Post Anesthesia Evaluation Procedure: Tracheostomy Date of Evaluation: Jul 05, 2020 Time of Evaluation: 08:30 Blood Pressure Systolic: 128 0: 76 Pulse Rate: 82 Respiratory Rate: 22 Temperature (Fahrenheit): 97.9 O2 Sat by Pulse Oximetry: 98 Airway: other - tracheostomy in place Nausea: No Vomiting: No Pain Intensity: 1 Hydration Status: adequate Cardiopulmonary Status: stable Mental Status/LOC: patient returned to baseline Follow-up Care/Observations: n/a Post-Anesthesia Complications: none Follow-up care needed: N/A Jeremy Hdz MD Jul 05, 2020 08:31
--- NOTE | 2020-07-05 08:35 | NUR ---
RD ASSESSMENT & RECOMMENDATIONS SEE CARE ACTIVITY FOR COMPLETE ASSESSMENT DAILY ESTIMATED NEEDS: Needs based on Critical care, obesity 11-14kcal/kg actual body wt (140kg) kcals/kg 1946-5146 total kcals 1.5-2.0g prot/kg IBW (64.5kg) g protein/kg 96-129 g total protein 25-30ml/kg abw (83kg) mL/kg 9131-0351 total fluid mLs NUTRITION DIAGNOSIS: Swallowing difficulty R/T respiratory failure as evidenced by pt orally intubated and sedated, on OGT feeds, held at this time. CURRENT TF: Vital 1.2 goal of 40ml/hr ENTERAL NUTRITION RECOMMENDATIONS: Vital AF 1.2 @ 60ml/hr x 24 hrs to provide 1440ml, 1728kcal, 108g prot, 1168ml free water * As able, rec goal of 60ml/hr x24 hrs to better meet est needs. * TF @ goal meeds 100% est kcal/prot needs * HOB over 30 degrees/ water flush per MD ADDITIONAL RECOMMENDATIONS: * Calibrated bedscale wt * Monitor Propofol rate, need for TF adjustment-> now off * Monitor BGs closely : now improved, on NISS only * Pt w/ rectal tube- DC OR HOLD colace and Miralax * F/up w/ bed change and ability to restart TF -> TF held since 06/22, now restarted .
[2020-07-05] MEDS: Docusate 100mg/10ml Liq GT SCH ×2 (08:39→20:50)
[2020-07-05] MEDS: Vitamin D 1000 units Tab GT SCH (08:39)
[2020-07-05] MEDS: Enoxaparin 40mg Inj SUBQ SCH (08:39)
--- NOTE | 2020-07-05 09:35 | NUR ---
NURSE NOTES: Oral care done,Oral/tracheal secretions suctioned PRN.
--- NOTE | 2020-07-05 10:32 | Infectious Diseases Prog Note ---
Assessment/Plan Assessment/Plan antibiotics : none A 1. covid 19 pneumonia on 80 % Fi O2 with 98 % saturation s/p remdesivir s/p solumedrol 2. respiratory failure 3. serratia pneumonia s/p rx P 1. continue off antibiotics 2. continue isolation Subjective ROS Limited/Unobtainable: Yes Allergies: Coded Allergies: No Known Allergies (Unverified , 05/28/20) Objective Last 24 Hour Vital Signs Date Time Temp Pulse Resp B/P (MAP) Pulse Ox O2 Delivery O2 Flow Rate FiO2 07/05/20 08:31 82 22 98 07/05/20 08:18 Mechanical Ventilator Mechanical Ventilator 07/05/20 08:00 19 Mechanical Ventilator 80 07/05/20 08:00 19 102/70 Mechanical Ventilator 80 07/05/20 08:00 97.2 97 25 102/70 (81) 99 07/05/20 08:00 96 07/05/20 08:00 80 07/05/20 07:00 97 17 107/65 (79) 99 07/05/20 06:30 99 18 07/05/20 06:30 99 18 112/64 (80) 99 07/05/20 06:00 103 19 113/65 (81) 97 07/05/20 06:00 18 Endotracheal Tube 80 07/05/20 06:00 18 112/65 Endotracheal Tube 80 07/05/20 05:30 107 21 117/60 (79) 98 07/05/20 05:00 21 Endotracheal Tube 80 07/05/20 05:00 21 108/61 Endotracheal Tube 80 07/05/20 05:00 110 21 108/65 (79) 98 07/05/20 04:30 112 23 102/55 (71) 07/05/20 04:29 101.0 07/05/20 04:00 101.0 106 22 102/55 (71) 95 07/05/20 04:00 80 07/05/20 04:00 Mechanical Ventilator Mechanical Ventilator 07/05/20 04:00 107 07/05/20 04:00 22 Endotracheal Tube 80 07/05/20 04:00 22 102/61 Endotracheal Tube 80 07/05/20 03:30 107 22 104/62 (76) 95 07/05/20 03:18 103 18 80 07/05/20 03:00 102 18 98/60 (73) 98 07/05/20 03:00 20 Endotracheal Tube 80 07/05/20 03:00 20 99/61 Endotracheal Tube 80 07/05/20 02:30 103 18 101/61 (74) 98 07/05/20 02:00 101 19 103/60 (74) 98 07/05/20 02:00 19 Endotracheal Tube 80 07/05/20 02:00 19 100/62 Endotracheal Tube 80 07/05/20 01:30 101 18 101/62 (75) 98 07/05/20 01:00 101 20 103/63 (76) 98 07/05/20 01:00 19 Endotracheal Tube 80 07/05/20 01:00 19 105/59 Endotracheal Tube 80 07/05/20 00:55 100 19 80 07/05/20 00:30 100 18 97/62 (74) 98 07/05/20 00:00 17 Endotracheal Tube 80 07/05/20 00:00 17 99/63 Endotracheal Tube 80 07/05/20 00:00 100.5 99 17 97/61 (73) 99 07/05/20 00:00 Mechanical Ventilator Mechanical Ventilator 07/04/20 23:16 99 16 80 07/04/20 23:00 97 17 99/59 (72) 99 07/04/20 23:00 17 Endotracheal Tube 80 07/04/20 23:00 17 107/63 Endotracheal Tube 80 07/04/20 22:30 97 18 103/61 (75) 99 07/04/20 22:00 95 17 104/59 (74) 99 07/04/20 22:00 17 Endotracheal Tube 80 07/04/20 22:00 17 105/63 Endotracheal Tube 80 07/04/20 21:30 96 16 106/61 (76) 99 07/04/20 21:23 96 17 80 07/04/20 21:17 19 99/67 Endotracheal Tube 80 07/04/20 21:15 19 Endotracheal Tube 80 07/04/20 21:00 97 17 99/62 (74) 99 07/04/20 21:00 17 Endotracheal Tube 80 07/04/20 21:00 17 104/62 Endotracheal Tube 80 07/04/20 20:30 96 19 97/60 (72) 99 07/04/20 20:00 17 Endotracheal Tube 80 07/04/20 20:00 17 100/62 Endotracheal Tube 80 07/04/20 20:00 99.2 97 16 104/60 (75) 99 07/04/20 20:00 80 07/04/20 20:00 98 07/04/20 20:00 Mechanical Ventilator Mechanical Ventilator 07/04/20 19:30 98 18 103/63 (76) 99 07/04/20 19:28 96 16 80 07/04/20 19:00 96 17 101/64 (76) 100 07/04/20 19:00 17 Mechanical Ventilator 80 07/04/20 19:00 20 103/63 Mechanical Ventilator 80 07/04/20 18:00 15 Mechanical Ventilator 80 07/04/20 18:00 15 107/62 Mechanical Ventilator 80 07/04/20 18:00 93 16 107/62 (77) 99 07/04/20 17:00 91 15 106/64 (78) 98 07/04/20 17:00 16 Mechanical Ventilator 80 07/04/20 17:00 17 106/64 Mechanical Ventilator 80 07/04/20 16:15 80 07/04/20 16:00 89 07/04/20 16:00 16 Mechanical Ventilator 100 07/04/20 16:00 16 107/67 Mechanical Ventilator 100 07/04/20 16:00 100 07/04/20 16:00 97.6 89 15 107/67 (80) 100 07/04/20 16:00 Mechanical Ventilator Mechanical Ventilator 07/04/20 15:00 88 15 100 07/04/20 15:00 19 Mechanical Ventilator 100 07/04/20 15:00 19 101/69 Mechanical Ventilator 100 07/04/20 15:00 96 15 105/71 (82) 100 07/04/20 14:00 17 Mechanical Ventilator 100 07/04/20 14:00 17 128/79 Mechanical Ventilator 100 07/04/20 14:00 94 16 101/69 (80) 100 07/04/20 13:00 101 18 128/79 (95) 100 07/04/20 13:00 19 Endotracheal Tube 100 07/04/20 13:00 18 128/79 Endotracheal Tube 100 07/04/20 12:30 Mechanical Ventilator Mechanical Ventilator 07/04/20 12:30 100 07/04/20 12:25 17 Endotracheal Tube 100 07/04/20 12:25 18 142/90 Endotracheal Tube 100 07/04/20 12:12 110 16 100 07/04/20 12:10 97.8 07/04/20 12:10 98 22 92 07/04/20 12:06 100 17 144/87 (106) 94 07/04/20 12:00 109 07/04/20 11:00 100 24 120/75 (90) 98 07/04/20 11:00 19 Endotracheal Tube 70 07/04/20 11:00 19 128/73 Endotracheal Tube 70 Height (Feet): 5 Height (Inches): 6.00 Weight (Pounds): 239 Laboratory Tests Test 07/05/20 03:30 White Blood Count 6.8 K/UL (4.8-10.8) Red Blood Count 2.80 M/UL (4.20-5.40) L Hemoglobin 8.1 G/DL (12.0-16.0) L Hematocrit 27.1 % (37.0-47.0) L Mean Corpuscular Volume 97 FL (80-99) Mean Corpuscular Hemoglobin 29.0 PG (27.0-31.0) Mean Corpuscular Hemoglobin Concent 30.0 G/DL (32.0-36.0) L Red Cell Distribution Width 19.3 % (11.6-14.8) H Platelet Count 213 K/UL (150-450) Mean Platelet Volume 8.5 FL (6.5-10.1) Neutrophils (%) (Auto) 56.0 % (45.0-75.0) Lymphocytes (%) (Auto) 29.3 % (20.0-45.0) Monocytes (%) (Auto) 9.8 % (1.0-10.0) Eosinophils (%) (Auto) 3.7 % (0.0-3.0) H Basophils (%) (Auto) 1.1 % (0.0-2.0) Sodium Level 141 MMOL/L (136-145) Potassium Level 3.4 MMOL/L (3.5-5.1) L Chloride Level 99 MMOL/L (98-107) Carbon Dioxide Level 43 MMOL/L (21-32) *H Anion Gap 0 mmol/L (5-15) L Blood Urea Nitrogen 12 mg/dL (7-18) Creatinine 0.5 MG/DL (0.55-1.30) L Estimat Glomerular Filtration Rate > 60 mL/min (>60) Glucose Level 134 MG/DL (74-106) H Calcium Level 9.3 MG/DL (8.5-10.1) Current Medications Medications (Trade) Dose Ordered Sig/Zelda Route PRN Reason Start Time Stop Time Status Last Admin Dose Admin Acetaminophen (Tylenol) 650 mg Q4H PRN NG Temp >100.5 06/29/20 10:15 07/29/20 10:14 07/05/20 03:59 Acetaminophen (Tylenol) 650 mg Q6H PRN NG Mild Pain (Pain Scale 1-3) 06/29/20 10:15 07/29/20 10:14 Chlorhexidine Gluconate (Inna-Hex 2%) 1 applic DAILY@2000 TOPIC 05/30/20 20:00 08/28/20 19:59 07/04/20 20:33 Dextrose (Dextrose 50%) 25 ml Q30M PRN IV Hypoglycemia 06/05/20 10:45 09/03/20 10:44 Dextrose (Dextrose 50%) 50 ml Q30M PRN IV Hypoglycemia 06/05/20 10:45 09/03/20 10:44 Dextrose/Sodium Chloride 1,000 ml @ 50 mls/hr Q20H IV 06/24/20 16:30 07/24/20 16:29 07/04/20 16:11 Docusate Sodium (Colace) 100 mg Q12HR GT 06/07/20 21:00 07/07/20 20:59 07/05/20 08:39 Enoxaparin Sodium (Lovenox) 40 mg DAILY SUBQ 05/30/20 10:00 08/28/20 09:59 07/05/20 08:39 Fentanyl Citrate 250 ml @ 1 mls/hr Q24H IV 07/03/20 11:00 07/05/20 10:59 07/04/20 21:17 Furosemide (Lasix) 40 mg DAILY IV 06/22/20 09:00 07/22/20 08:59 07/05/20 08:39 Insulin Aspart (NovoLOG) EVERY 6 HOURS SUBQ 06/07/20 00:00 09/03/20 11:59 07/05/20 06:09 Lidocaine HCl (Xylocaine 1% 30ml) 30 ml NOW PRN INJ Radiology Procedure 07/04/20 10:45 07/07/20 10:44 Midazolam HCl 100 mg/Sodium Chloride 200 ml @ 0 mls/hr Q24H PRN IV sedation 07/03/20 20:00 07/05/20 19:59 07/04/20 21:15 Midodrine (Pro-Amatine) 10 mg Q8HR GT 06/30/20 14:00 09/12/20 13:59 07/05/20 05:39 Polyethylene Glycol (Miralax) 17 gm BEDTIME GT 06/07/20 21:00 07/07/20 20:59 07/04/20 21:01 Sodium Bicarbonate (Sodium Bicarbonate 4%) 1 ml NOW PRN IV Radiology Procedure 07/04/20 10:45 07/07/20 10:44 Vitamin D (Vitamin D) 5,000 unit DAILY GT 06/28/20 09:00 07/28/20 08:59 07/05/20 08:39 Fili Mcelroy MD Jul 05, 2020 10:32
--- NOTE | 2020-07-05 10:41 | Pulmonology Progress Note ---
Subjective ROS Limited/Unobtainable: Yes Interval Events: S/p tracheostomy 07/04/20 Constitutional: Denies: fever HEENT: Repors: no symptoms Respiratory: Reports: no symptoms Cardiovascular: Reports: no symptoms Gastrointestinal/Abdominal: Reports: no symptoms Genitourinary: Reports: no symptoms Allergies: Coded Allergies: No Known Allergies (Unverified , 05/28/20) All Systems: reviewed and negative except above Objective Last 24 Hour Vital Signs Date Time Temp Pulse Resp B/P (MAP) Pulse Ox O2 Delivery O2 Flow Rate FiO2 07/05/20 10:00 28 Mechanical Ventilator 80 07/05/20 10:00 28 114/72 Mechanical Ventilator 80 07/05/20 09:00 33 Mechanical Ventilator 80 07/05/20 09:00 33 125/71 Mechanical Ventilator 80 07/05/20 08:31 82 22 98 07/05/20 08:18 Mechanical Ventilator Mechanical Ventilator 07/05/20 08:00 19 Mechanical Ventilator 80 07/05/20 08:00 19 102/70 Mechanical Ventilator 80 07/05/20 08:00 97.2 97 25 102/70 (81) 99 07/05/20 08:00 96 07/05/20 08:00 80 07/05/20 07:00 97 17 107/65 (79) 99 07/05/20 06:30 99 18 07/05/20 06:30 99 18 112/64 (80) 99 07/05/20 06:00 103 19 113/65 (81) 97 07/05/20 06:00 18 Endotracheal Tube 80 07/05/20 06:00 18 112/65 Endotracheal Tube 80 07/05/20 05:30 107 21 117/60 (79) 98 07/05/20 05:00 21 Endotracheal Tube 80 07/05/20 05:00 21 108/61 Endotracheal Tube 80 07/05/20 05:00 110 21 108/65 (79) 98 07/05/20 04:30 112 23 102/55 (71) 07/05/20 04:29 101.0 07/05/20 04:00 101.0 106 22 102/55 (71) 95 07/05/20 04:00 80 07/05/20 04:00 Mechanical Ventilator Mechanical Ventilator 07/05/20 04:00 107 07/05/20 04:00 22 Endotracheal Tube 80 07/05/20 04:00 22 102/61 Endotracheal Tube 80 07/05/20 03:30 107 22 104/62 (76) 95 07/05/20 03:18 103 18 80 07/05/20 03:00 102 18 98/60 (73) 98 07/05/20 03:00 20 Endotracheal Tube 80 07/05/20 03:00 20 99/61 Endotracheal Tube 80 07/05/20 02:30 103 18 101/61 (74) 98 07/05/20 02:00 101 19 103/60 (74) 98 07/05/20 02:00 19 Endotracheal Tube 80 07/05/20 02:00 19 100/62 Endotracheal Tube 80 07/05/20 01:30 101 18 101/62 (75) 98 07/05/20 01:00 101 20 103/63 (76) 98 07/05/20 01:00 19 Endotracheal Tube 80 07/05/20 01:00 19 105/59 Endotracheal Tube 80 07/05/20 00:55 100 19 80 07/05/20 00:30 100 18 97/62 (74) 98 07/05/20 00:00 17 Endotracheal Tube 80 07/05/20 00:00 17 99/63 Endotracheal Tube 80 07/05/20 00:00 100.5 99 17 97/61 (73) 99 07/05/20 00:00 Mechanical Ventilator Mechanical Ventilator 07/04/20 23:16 99 16 80 07/04/20 23:00 97 17 99/59 (72) 99 07/04/20 23:00 17 Endotracheal Tube 80 07/04/20 23:00 17 107/63 Endotracheal Tube 80 07/04/20 22:30 97 18 103/61 (75) 99 07/04/20 22:00 95 17 104/59 (74) 99 07/04/20 22:00 17 Endotracheal Tube 80 07/04/20 22:00 17 105/63 Endotracheal Tube 80 07/04/20 21:30 96 16 106/61 (76) 99 07/04/20 21:23 96 17 80 07/04/20 21:17 19 99/67 Endotracheal Tube 80 07/04/20 21:15 19 Endotracheal Tube 80 07/04/20 21:00 97 17 99/62 (74) 99 07/04/20 21:00 17 Endotracheal Tube 80 07/04/20 21:00 17 104/62 Endotracheal Tube 80 07/04/20 20:30 96 19 97/60 (72) 99 07/04/20 20:00 17 Endotracheal Tube 80 07/04/20 20:00 17 100/62 Endotracheal Tube 80 07/04/20 20:00 99.2 97 16 104/60 (75) 99 07/04/20 20:00 80 07/04/20 20:00 98 07/04/20 20:00 Mechanical Ventilator Mechanical Ventilator 07/04/20 19:30 98 18 103/63 (76) 99 07/04/20 19:28 96 16 80 07/04/20 19:00 96 17 101/64 (76) 100 07/04/20 19:00 17 Mechanical Ventilator 80 07/04/20 19:00 20 103/63 Mechanical Ventilator 80 07/04/20 18:00 15 Mechanical Ventilator 80 07/04/20 18:00 15 107/62 Mechanical Ventilator 80 07/04/20 18:00 93 16 107/62 (77) 99 07/04/20 17:00 91 15 106/64 (78) 98 07/04/20 17:00 16 Mechanical Ventilator 80 07/04/20 17:00 17 106/64 Mechanical Ventilator 80 07/04/20 16:15 80 07/04/20 16:00 89 07/04/20 16:00 16 Mechanical Ventilator 100 07/04/20 16:00 16 107/67 Mechanical Ventilator 100 07/04/20 16:00 100 07/04/20 16:00 97.6 89 15 107/67 (80) 100 07/04/20 16:00 Mechanical Ventilator Mechanical Ventilator 07/04/20 15:00 88 15 100 07/04/20 15:00 19 Mechanical Ventilator 100 07/04/20 15:00 19 101/69 Mechanical Ventilator 100 07/04/20 15:00 96 15 105/71 (82) 100 07/04/20 14:00 17 Mechanical Ventilator 100 07/04/20 14:00 17 128/79 Mechanical Ventilator 100 07/04/20 14:00 94 16 101/69 (80) 100 07/04/20 13:00 101 18 128/79 (95) 100 07/04/20 13:00 19 Endotracheal Tube 100 07/04/20 13:00 18 128/79 Endotracheal Tube 100 07/04/20 12:30 Mechanical Ventilator Mechanical Ventilator 07/04/20 12:30 100 07/04/20 12:25 17 Endotracheal Tube 100 07/04/20 12:25 18 142/90 Endotracheal Tube 100 07/04/20 12:12 110 16 100 07/04/20 12:10 97.8 07/04/20 12:10 98 22 92 07/04/20 12:06 100 17 144/87 (106) 94 07/04/20 12:00 109 07/04/20 11:00 100 24 120/75 (90) 98 07/04/20 11:00 19 Endotracheal Tube 70 07/04/20 11:00 19 128/73 Endotracheal Tube 70 Intake and Output 07/04/20 07/05/20 19:00 07:00 Intake Total 1105.17 ml 1387 ml Output Total 1025 ml 450 ml Balance 80.17 ml 937 ml Free Water 60 ml IV Total 885.17 ml 847 ml Tube Feeding 220 ml 480 ml Output Urine Total 1015 ml 450 ml Stool Total 10 ml # Bowel Movements 1 General Appearance: no acute distress HEENT: normocephalic, status post trach Respiratory: chest wall non-tender Cardiovascular: normal peripheral pulses Abdomen: normal bowel sounds Laboratory Tests 07/05/20 03:30: White Blood Count 6.8, Red Blood Count 2.80L, Hemoglobin 8.1L, Hematocrit 27.1L, Mean Corpuscular Volume 97, Mean Corpuscular Hemoglobin 29.0, Mean Corpuscular Hemoglobin Concent 30.0L, Red Cell Distribution Width 19.3H, Platelet Count 213, Mean Platelet Volume 8.5, Neutrophils (%) (Auto) 56.0, Lymphocytes (%) (Auto) 29.3, Monocytes (%) (Auto) 9.8, Eosinophils (%) (Auto) 3.7H, Basophils (%) (Auto) 1.1, Sodium Level 141, Potassium Level 3.4L, Chloride Level 99, Carbon Dioxide Level 43*H, Anion Gap 0L, Blood Urea Nitrogen 12, Creatinine 0.5L, Estimat Glomerular Filtration Rate > 60, Glucose Level 134H, Calcium Level 9.3 Current Medications Medications (Trade) Dose Ordered Sig/Zelda Route PRN Reason Start Time Stop Time Status Last Admin Dose Admin Acetaminophen (Tylenol) 650 mg Q4H PRN NG Temp >100.5 06/29/20 10:15 3/8/21 10:14 07/05/20 03:59 Acetaminophen (Tylenol) 650 mg Q6H PRN NG Mild Pain (Pain Scale 1-3) 06/29/20 10:15 07/29/20 10:14 Chlorhexidine Gluconate (Inna-Hex 2%) 1 applic DAILY@2000 TOPIC 05/30/20 20:00 08/28/20 19:59 07/04/20 20:33 Dextrose (Dextrose 50%) 25 ml Q30M PRN IV Hypoglycemia 06/05/20 10:45 09/03/20 10:44 Dextrose (Dextrose 50%) 50 ml Q30M PRN IV Hypoglycemia 06/05/20 10:45 09/03/20 10:44 Dextrose/Sodium Chloride 1,000 ml @ 50 mls/hr Q20H IV 06/24/20 16:30 07/24/20 16:29 07/04/20 16:11 Docusate Sodium (Colace) 100 mg Q12HR GT 06/07/20 21:00 07/07/20 20:59 07/05/20 08:39 Enoxaparin Sodium (Lovenox) 40 mg DAILY SUBQ 05/30/20 10:00 08/28/20 09:59 07/05/20 08:39 Fentanyl Citrate 250 ml @ 1 mls/hr Q24H IV 07/03/20 11:00 07/05/20 10:59 07/04/20 21:17 Furosemide (Lasix) 40 mg DAILY IV 06/22/20 09:00 07/22/20 08:59 07/05/20 08:39 Insulin Aspart (NovoLOG) EVERY 6 HOURS SUBQ 06/07/20 00:00 09/03/20 11:59 07/05/20 06:09 Lidocaine HCl (Xylocaine 1% 30ml) 30 ml NOW PRN INJ Radiology Procedure 07/04/20 10:45 07/07/20 10:44 Midazolam HCl 100 mg/Sodium Chloride 200 ml @ 0 mls/hr Q24H PRN IV sedation 07/03/20 20:00 07/05/20 19:59 07/04/20 21:15 Midodrine (Pro-Amatine) 10 mg Q8HR GT 06/30/20 14:00 09/12/20 13:59 07/05/20 05:39 Polyethylene Glycol (Miralax) 17 gm BEDTIME GT 06/07/20 21:00 07/07/20 20:59 07/04/20 21:01 Sodium Bicarbonate (Sodium Bicarbonate 4%) 1 ml NOW PRN IV Radiology Procedure 07/04/20 10:45 07/07/20 10:44 Vitamin D (Vitamin D) 5,000 unit DAILY GT 06/28/20 09:00 07/28/20 08:59 07/05/20 08:39 Assessment/Plan Assessment/Plan 1. COVID-19 pneumonia -Intubated 05/28/20 - We will continue broad-spectrum antibiotics. -s/p solumedrol, Rocephin -Continue PEEP 6 ->7 ->8 - Peak airway pressures high; 42 - FiO2 100% -> 90 ->80->60 ->40 ->80 ->100 ->80 -70; back up to 80%; -will continue OGT feeding -Continue sedation; Need to keep patient completely sedated. 2. Hyponatremia -Per primary MD 3. Elevated inflammatory markers - has high D dimer; Lovenox on hold due to hematuria 4. Decrease PEEP Continue weaning efforts S/p trach Discussed with surgery Javier Nava MD Jul 05, 2020 10:41
--- NOTE | 2020-07-05 11:00 | NUR ---
NURSE NOTES: Dr Nava at bedside ,updated re pt's condition.
[2020-07-05 11:08] LABS: ALANINE AMINOTRANSFERASE 25 U/L (12-78); ALBUMIN 2.3 G/DL (3.4-5.0); ALKALINE PHOSPHATASE 82 U/L (46-116); ASPARTATE AMINO TRANSFERASE 37 U/L (15-37); BILIRUBIN,TOTAL 1.2 MG/DL (0.2-1.0); PHOSPHORUS 2.6 MG/DL (2.5-4.9)
[2020-07-05 11:28] LABS: BILIRUBIN,DIRECT 0.2 MG/DL (0.0-0.3)
--- NOTE | 2020-07-05 12:00 | NUR ---
NURSE NOTES: Pt with fever T101,,pt on cooling blanket,given Tylenol 650 mg NGT.will continue to monitor pt's temp.
--- NOTE | 2020-07-05 12:26 | Nephrology Progress Note ---
Assessment/Plan Problem List: (1) DEVENDRA (acute kidney injury) (2) Morbid obesity (3) Diabetes mellitus out of control (4) Pneumonia due to COVID-19 virus (5) Respiratory failure Assessment Acute renal failure Obstructive uropathy, clogged Lennon Respiratory failure COVID-19 pneumonia Morbid obesity Plan July 05: Trach to vent. FiO2 80%. Renal parameters stable. PCO2 remains high at 44. Continue to monitor renal parameters. July 04: Patient now trach. Full code. Labs reviewed. Renal parameters stable. Low magnesium addressed. July 03: Intubated. Full code. Labs reviewed. Abnormal electrolytes addressed. Continue per consultants. Overall status unchanged. July 02: Remains intubated. Remains full code. Remains on FiO2 of 70%. Labs reviewed. Abnormal electrolytes addressed. Continue per pulmonary. July 01: Remains on 70% FiO2. Full code. Intubated on ventilator. Retaining CO2. Discussed with RN. Will do ABG today. Albumin bolus given. 1 dose of Diamox given. June 30: Status quo. Labs reviewed. Abnormal electrolytes addressed. Remains full code. Remains on ventilator. Magnesium sulfate 4 gram IVPB given. June 29: Full code. Intubated on ventilator. Labs reviewed. Stable from renal standpoint of view. Continue per consultants. June 28: Remains full code. Remains intubated on ventilator. Labs reviewed. Vitamin D supplement ordered. Continue to monitor renal parameters. Continue per consultants. June 27: Remains full code. Intubated on ventilator. Labs reviewed. Abnormal electrolyte addressed. Continue to monitor renal parameters and electrolytes. Continue per consultants. June 26: Labs reviewed. Remains full code. Remains intubated. Back on NGT feeding. Continue to monitor renal parameters. June 25: Labs reviewed. Renal parameters stable. Remains full code. Due to positional status patient could not be fed via NG tube. Starting TPN? Is being entertained. Continue per consultants. June 24: Labs reviewed. Renal parameters stable. Remains full code. Remains intubated on ventilator. Continue per consultants. June 23: Labs reviewed. Renal parameters stable. Discussed with RN. Abnormal electrolyte addressed. Remains full code. Remains on ventilator. Continue per consultants. June 22: Labs reviewed. Low potassium addressed. Discussed with RAKEL Moran. Patient full code. Remains on ventilator. Continue to monitor renal parameters. June 21. Labs reviewed. Abnormal electrolyte addressed. Full code. Remains on ventilator. Medication list reviewed. Continue per pulmonary management. DC IV fluid, resume Lasix daily, check chest x-ray. June 20: Labs reviewed. Abnormal electrolytes. Patient remains full code. Continue per consultants. Noted and addressed June 19: Labs reviewed. Abnormal electrolytes noted and addressed. Remains intubated on ventilator. Remains full code. June 18: Labs reviewed. Remains intubated on ventilator. Full code. Abnormal electrolyte addressed. Continue as is. June 17: Labs reviewed. Abnormal electrolytes addressed. Patient remains full code and intubated on ventilator. Continue per consultants. Renal parameters are within normal limits. June 16: Labs reviewed. Potassium chloride replaced. Remains full code. Remains intubated on ventilator. Continue per consultants. Continue to monitor renal parameters. June 15: Labs reviewed. Serum creatinine 1. Stable from renal standpoint to view. Continue per consultants. June 14: Labs reviewed. Full code. Serum creatinine of 3.5 down to 1.4. Low potassium addressed. Continue per current treatment plan. Continue to monitor renal parameters. Midodrine started. Albumin bolus given. Previously: DC Lasix drip Increase Protonix dose Monitor renal parameters, electrolytes Per orders Subjective ROS Limited/Unobtainable: Yes Objective Objective Last 24 Hour Vital Signs Date Time Temp Pulse Resp B/P (MAP) Pulse Ox O2 Delivery O2 Flow Rate FiO2 07/05/20 11:14 94 27 80 07/05/20 10:00 112 28 105/75 (85) 99 07/05/20 10:00 28 Mechanical Ventilator 80 07/05/20 10:00 28 114/72 Mechanical Ventilator 80 07/05/20 09:00 33 Mechanical Ventilator 80 07/05/20 09:00 33 125/71 Mechanical Ventilator 80 07/05/20 09:00 112 33 125/71 (89) 99 07/05/20 08:31 82 22 98 07/05/20 08:18 Mechanical Ventilator Mechanical Ventilator 07/05/20 08:00 19 Mechanical Ventilator 80 07/05/20 08:00 19 102/70 Mechanical Ventilator 80 07/05/20 08:00 97.2 97 25 102/70 (81) 99 07/05/20 08:00 96 07/05/20 08:00 80 07/05/20 07:34 94 17 80 07/05/20 07:00 97 17 107/65 (79) 99 2/12/21 06:30 99 18 07/05/20 06:30 99 18 112/64 (80) 99 07/05/20 06:00 103 19 113/65 (81) 97 07/05/20 06:00 18 Endotracheal Tube 80 07/05/20 06:00 18 112/65 Endotracheal Tube 80 07/05/20 05:30 107 21 117/60 (79) 98 07/05/20 05:00 21 Endotracheal Tube 80 07/05/20 05:00 21 108/61 Endotracheal Tube 80 07/05/20 05:00 110 21 108/65 (79) 98 07/05/20 04:30 112 23 102/55 (71) 07/05/20 04:29 101.0 07/05/20 04:00 101.0 106 22 102/55 (71) 95 07/05/20 04:00 80 07/05/20 04:00 Mechanical Ventilator Mechanical Ventilator 07/05/20 04:00 107 07/05/20 04:00 22 Endotracheal Tube 80 07/05/20 04:00 22 102/61 Endotracheal Tube 80 07/05/20 03:30 107 22 104/62 (76) 95 07/05/20 03:18 103 18 80 07/05/20 03:00 102 18 98/60 (73) 98 07/05/20 03:00 20 Endotracheal Tube 80 07/05/20 03:00 20 99/61 Endotracheal Tube 80 07/05/20 02:30 103 18 101/61 (74) 98 07/05/20 02:00 101 19 103/60 (74) 98 07/05/20 02:00 19 Endotracheal Tube 80 07/05/20 02:00 19 100/62 Endotracheal Tube 80 07/05/20 01:30 101 18 101/62 (75) 98 07/05/20 01:00 101 20 103/63 (76) 98 07/05/20 01:00 19 Endotracheal Tube 80 07/05/20 01:00 19 105/59 Endotracheal Tube 80 07/05/20 00:55 100 19 80 07/05/20 00:30 100 18 97/62 (74) 98 07/05/20 00:00 17 Endotracheal Tube 80 07/05/20 00:00 17 99/63 Endotracheal Tube 80 07/05/20 00:00 100.5 99 17 97/61 (73) 99 07/05/20 00:00 Mechanical Ventilator Mechanical Ventilator 07/04/20 23:16 99 16 80 07/04/20 23:00 97 17 99/59 (72) 99 07/04/20 23:00 17 Endotracheal Tube 80 07/04/20 23:00 17 107/63 Endotracheal Tube 80 07/04/20 22:30 97 18 103/61 (75) 99 07/04/20 22:00 95 17 104/59 (74) 99 07/04/20 22:00 17 Endotracheal Tube 80 07/04/20 22:00 17 105/63 Endotracheal Tube 80 07/04/20 21:30 96 16 106/61 (76) 99 07/04/20 21:23 96 17 80 07/04/20 21:17 19 99/67 Endotracheal Tube 80 07/04/20 21:15 19 Endotracheal Tube 80 07/04/20 21:00 97 17 99/62 (74) 99 07/04/20 21:00 17 Endotracheal Tube 80 07/04/20 21:00 17 104/62 Endotracheal Tube 80 07/04/20 20:30 96 19 97/60 (72) 99 07/04/20 20:00 17 Endotracheal Tube 80 07/04/20 20:00 17 100/62 Endotracheal Tube 80 07/04/20 20:00 99.2 97 16 104/60 (75) 99 07/04/20 20:00 80 07/04/20 20:00 98 07/04/20 20:00 Mechanical Ventilator Mechanical Ventilator 07/04/20 19:30 98 18 103/63 (76) 99 07/04/20 19:28 96 16 80 07/04/20 19:00 96 17 101/64 (76) 100 07/04/20 19:00 17 Mechanical Ventilator 80 07/04/20 19:00 20 103/63 Mechanical Ventilator 80 07/04/20 18:00 15 Mechanical Ventilator 80 07/04/20 18:00 15 107/62 Mechanical Ventilator 80 07/04/20 18:00 93 16 107/62 (77) 99 07/04/20 17:00 91 15 106/64 (78) 98 07/04/20 17:00 16 Mechanical Ventilator 80 07/04/20 17:00 17 106/64 Mechanical Ventilator 80 07/04/20 16:15 80 07/04/20 16:00 89 07/04/20 16:00 16 Mechanical Ventilator 100 07/04/20 16:00 16 107/67 Mechanical Ventilator 100 07/04/20 16:00 100 07/04/20 16:00 97.6 89 15 107/67 (80) 100 07/04/20 16:00 Mechanical Ventilator Mechanical Ventilator 07/04/20 15:00 88 15 100 07/04/20 15:00 19 Mechanical Ventilator 100 07/04/20 15:00 19 101/69 Mechanical Ventilator 100 07/04/20 15:00 96 15 105/71 (82) 100 07/04/20 14:00 17 Mechanical Ventilator 100 07/04/20 14:00 17 128/79 Mechanical Ventilator 100 07/04/20 14:00 94 16 101/69 (80) 100 07/04/20 13:00 101 18 128/79 (95) 100 07/04/20 13:00 19 Endotracheal Tube 100 07/04/20 13:00 18 128/79 Endotracheal Tube 100 07/04/20 12:30 Mechanical Ventilator Mechanical Ventilator 07/04/20 12:30 100 07/04/20 12:25 17 Endotracheal Tube 100 07/04/20 12:25 18 142/90 Endotracheal Tube 100 Intake and Output 07/04/20 07/05/20 19:00 07:00 Intake Total 1105.17 ml 1387 ml Output Total 1025 ml 450 ml Balance 80.17 ml 937 ml Free Water 60 ml IV Total 885.17 ml 847 ml Tube Feeding 220 ml 480 ml Output Urine Total 1015 ml 450 ml Stool Total 10 ml # Bowel Movements 1 Current Medications Medications (Trade) Dose Ordered Sig/Zelda Route PRN Reason Start Time Stop Time Status Last Admin Dose Admin Acetaminophen (Tylenol) 650 mg Q4H PRN NG Temp >100.5 06/29/20 10:15 07/29/20 10:14 07/05/20 03:59 Acetaminophen (Tylenol) 650 mg Q6H PRN NG Mild Pain (Pain Scale 1-3) 06/29/20 10:15 07/29/20 10:14 Chlorhexidine Gluconate (Inna-Hex 2%) 1 applic DAILY@1999 TOPIC 05/30/20 20:00 08/28/20 19:59 07/04/20 20:33 Dextrose (Dextrose 50%) 25 ml Q30M PRN IV Hypoglycemia 06/05/20 10:45 09/03/20 10:44 Dextrose (Dextrose 50%) 50 ml Q30M PRN IV Hypoglycemia 06/05/20 10:45 09/03/20 10:44 Dextrose/Sodium Chloride 1,000 ml @ 50 mls/hr Q20H IV 06/24/20 16:30 07/24/20 16:29 07/04/20 16:11 Docusate Sodium (Colace) 100 mg Q12HR GT 06/07/20 21:00 07/07/20 20:59 07/05/20 08:39 Enoxaparin Sodium (Lovenox) 40 mg DAILY SUBQ 05/30/20 10:00 08/28/20 09:59 07/05/20 08:39 Furosemide (Lasix) 40 mg DAILY IV 06/22/20 09:00 07/22/20 08:59 07/05/20 08:39 Insulin Aspart (NovoLOG) EVERY 6 HOURS SUBQ 06/07/20 00:00 09/03/20 11:59 07/05/20 11:56 Lidocaine HCl (Xylocaine 1% 30ml) 30 ml NOW PRN INJ Radiology Procedure 07/04/20 10:45 07/07/20 10:44 Midazolam HCl 100 mg/Sodium Chloride 200 ml @ 0 mls/hr Q24H PRN IV sedation 07/03/20 20:00 07/05/20 19:59 07/04/20 21:15 Midodrine (Pro-Amatine) 10 mg Q8HR GT 06/30/20 14:00 09/12/20 13:59 07/05/20 05:39 Polyethylene Glycol (Miralax) 17 gm BEDTIME GT 06/07/20 21:00 07/07/20 20:59 07/04/20 21:01 Sodium Bicarbonate (Sodium Bicarbonate 4%) 1 ml NOW PRN IV Radiology Procedure 07/04/20 10:45 07/07/20 10:44 Vitamin D (Vitamin D) 5,000 unit DAILY GT 06/28/20 09:00 07/28/20 08:59 07/05/20 08:39 Laboratory Tests 07/05/20 03:30: White Blood Count 6.8, Red Blood Count 2.80L, Hemoglobin 8.1L, Hematocrit 27.1L, Mean Corpuscular Volume 97, Mean Corpuscular Hemoglobin 29.0, Mean Corpuscular Hemoglobin Concent 30.0L, Red Cell Distribution Width 19.3H, Platelet Count 213, Mean Platelet Volume 8.5, Neutrophils (%) (Auto) 56.0, Lymphocytes (%) (Auto) 29.3, Monocytes (%) (Auto) 9.8, Eosinophils (%) (Auto) 3.7H, Basophils (%) (Auto) 1.1, Sodium Level 141, Potassium Level 3.4L, Chloride Level 99, Carbon Dioxide Level 43*H, Anion Gap 0L, Blood Urea Nitrogen 12, Creatinine 0.5L, Estimat Glomerular Filtration Rate > 60, Glucose Level 134H, Calcium Level 9.3, Phosphorus Level 2.6, Magnesium Level 2.2, Total Bilirubin 1.2H, Direct Bilirubin 0.2, Aspartate Amino Transf (AST/SGOT) 37, Alanine Aminotransferase (ALT/SGPT) 25, Alkaline Phosphatase 82, Total Protein 7.1, Albumin 2.3L Height (Feet): 5 Height (Inches): 6.00 Weight (Pounds): 239 General Appearance: no apparent distress EENT: other - Trach to vent Cardiovascular: tachycardia Respiratory/Chest: decreased breath sounds Abdomen: distended Rigo Tyler MD Jul 05, 2020 12:26
[2020-07-05] MEDS: D5 1/2NS 1,000 ML IV SCH (12:46)
[2020-07-05] MEDS ORDERED: fentaNYL 2500mcg/NS 250ml 250 ML IV SCH (13:00)
[2020-07-05] MEDS: fentaNYL 2500mcg/NS 250ml 250 ML IV PRN (13:03)
[2020-07-05] MEDS: Midazolam HCl 50mg/10ml vial 100 MG in NS 180 ML IV PRN (14:21)
--- NOTE | 2020-07-05 14:54 | NUR ---
INSURNACE CLINICALS AND REVIEWS FAXED TO [facility] T: [phone] EXT [id number] F: [phone] REF 2020 [id number]
--- NOTE | 2020-07-05 16:00 | NUR ---
NURSE NOTES: Bed bath given ,pt with Rectal tube but leaking ,large amount of liquid brown stools noted on the pad,kept dry and clean.Pulled up and repositioned.
--- NOTE | 2020-07-05 17:00 | NUR ---
NURSE NOTES: Pt resting quietly in bed no resp distress presented during the shift.
--- NOTE | 2020-07-05 18:40 | Surgery Progress Note ---
Surgery Progress Note Subjective Procedure Performed Tracheostomy Bronchoscopy Additional Comments s/p trach stable trach okay weaning sedation Objective Last 24 Hour Vital Signs Date Time Temp Pulse Resp B/P (MAP) Pulse Ox O2 Delivery O2 Flow Rate FiO2 07/05/20 18:00 98 26 115/79 (91) 100 07/05/20 17:00 85 24 106/71 (83) 100 07/05/20 16:00 100.4 83 17 99/63 (75) 100 07/05/20 16:00 Mechanical Ventilator Mechanical Ventilator 07/05/20 16:00 18 99/63 Mechanical Ventilator 80 07/05/20 16:00 18 Mechanical Ventilator 80 07/05/20 16:00 80 07/05/20 16:00 80 07/05/20 15:26 84 16 80 07/05/20 15:00 87 23 106/63 (77) 100 07/05/20 15:00 19 106/63 Mechanical Ventilator 80 07/05/20 15:00 19 Mechanical Ventilator 80 07/05/20 14:21 20 Mechanical Ventilator 80 07/05/20 14:00 20 104/70 Mechanical Ventilator 80 07/05/20 14:00 20 Mechanical Ventilator 80 07/05/20 14:00 97 23 104/76 (85) 100 07/05/20 13:15 100.5 07/05/20 13:03 20 109/66 Mechanical Ventilator 80 07/05/20 13:00 97 20 109/74 (86) 100 07/05/20 13:00 20 Mechanical Ventilator 80 07/05/20 12:00 102 22 110/70 (83) 100 07/05/20 12:00 101.0 07/05/20 12:00 20 Mechanical Ventilator 80 07/05/20 12:00 80 07/05/20 12:00 98 07/05/20 12:00 Mechanical Ventilator Mechanical Ventilator 07/05/20 11:14 94 27 80 07/05/20 11:00 106 25 110/73 (85) 99 07/05/20 11:00 21 Mechanical Ventilator 80 07/05/20 10:00 112 28 105/75 (85) 99 07/05/20 10:00 28 Mechanical Ventilator 80 07/05/20 10:00 28 114/72 Mechanical Ventilator 80 07/05/20 09:00 33 Mechanical Ventilator 80 07/05/20 09:00 33 125/71 Mechanical Ventilator 80 07/05/20 09:00 112 33 125/71 (89) 99 07/05/20 08:31 82 22 98 07/05/20 08:01 Mechanical Ventilator Mechanical Ventilator 07/05/20 08:00 19 Mechanical Ventilator 80 07/05/20 08:00 19 102/70 Mechanical Ventilator 80 07/05/20 08:00 97.2 97 25 102/70 (81) 99 07/05/20 08:00 96 07/05/20 08:00 80 07/05/20 07:34 94 17 80 07/05/20 07:00 97 17 107/65 (79) 99 07/05/20 06:30 99 18 07/05/20 06:30 99 18 112/64 (80) 99 07/05/20 06:00 103 19 113/65 (81) 97 07/05/20 06:00 18 Endotracheal Tube 80 07/05/20 06:00 18 112/65 Endotracheal Tube 80 07/05/20 05:30 107 21 117/60 (79) 98 07/05/20 05:00 21 Endotracheal Tube 80 07/05/20 05:00 21 108/61 Endotracheal Tube 80 07/05/20 05:00 110 21 108/65 (79) 98 07/05/20 04:30 112 23 102/55 (71) 07/05/20 04:29 101.0 07/05/20 04:00 101.0 106 22 102/55 (71) 95 07/05/20 04:00 80 07/05/20 04:00 Mechanical Ventilator Mechanical Ventilator 07/05/20 04:00 107 07/05/20 04:00 22 Endotracheal Tube 80 07/05/20 04:00 22 102/61 Endotracheal Tube 80 07/05/20 03:30 107 22 104/62 (76) 95 07/05/20 03:18 103 18 80 07/05/20 03:00 102 18 98/60 (73) 98 07/05/20 03:00 20 Endotracheal Tube 80 07/05/20 03:00 20 99/61 Endotracheal Tube 80 07/05/20 02:30 103 18 101/61 (74) 98 07/05/20 02:00 101 19 103/60 (74) 98 07/05/20 02:00 19 Endotracheal Tube 80 07/05/20 02:00 19 100/62 Endotracheal Tube 80 07/05/20 01:30 101 18 101/62 (75) 98 07/05/20 01:00 101 20 103/63 (76) 98 07/05/20 01:00 19 Endotracheal Tube 80 07/05/20 01:00 19 105/59 Endotracheal Tube 80 07/05/20 00:55 100 19 80 07/05/20 00:30 100 18 97/62 (74) 98 07/05/20 00:00 17 Endotracheal Tube 80 07/05/20 00:00 17 99/63 Endotracheal Tube 80 07/05/20 00:00 100.5 99 17 97/61 (73) 99 07/05/20 00:00 Mechanical Ventilator Mechanical Ventilator 07/04/20 23:16 99 16 80 07/04/20 23:00 97 17 99/59 (72) 99 07/04/20 23:00 17 Endotracheal Tube 80 07/04/20 23:00 17 107/63 Endotracheal Tube 80 07/04/20 22:30 97 18 103/61 (75) 99 07/04/20 22:00 95 17 104/59 (74) 99 07/04/20 22:00 17 Endotracheal Tube 80 07/04/20 22:00 17 105/63 Endotracheal Tube 80 07/04/20 21:30 96 16 106/61 (76) 99 07/04/20 21:23 96 17 80 07/04/20 21:17 19 99/67 Endotracheal Tube 80 07/04/20 21:15 19 Endotracheal Tube 80 07/04/20 21:00 97 17 99/62 (74) 99 07/04/20 21:00 17 Endotracheal Tube 80 07/04/20 21:00 17 104/62 Endotracheal Tube 80 07/04/20 20:30 96 19 97/60 (72) 99 07/04/20 20:00 17 Endotracheal Tube 80 07/04/20 20:00 17 100/62 Endotracheal Tube 80 07/04/20 20:00 99.2 97 16 104/60 (75) 99 07/04/20 20:00 80 07/04/20 20:00 98 07/04/20 20:00 Mechanical Ventilator Mechanical Ventilator 07/04/20 19:30 98 18 103/63 (76) 99 07/04/20 19:28 96 16 80 07/04/20 19:00 96 17 101/64 (76) 100 2/11/21 19:00 17 Mechanical Ventilator 80 07/04/20 19:00 20 103/63 Mechanical Ventilator 80 I&O Intake and Output 07/04/20 07/05/20 19:00 07:00 Intake Total 1105.17 ml 1437 ml Output Total 1025 ml 450 ml Balance 80.17 ml 987 ml Free Water 60 ml IV Total 885.17 ml 897 ml Tube Feeding 220 ml 480 ml Output Urine Total 1015 ml 450 ml Stool Total 10 ml # Bowel Movements 1 Dressing: dry Cardiovascular: RSR Respiratory: decreased breath sounds Abdomen: soft, non-tender, present bowel sounds Extremities: no edema, no tenderness, no cyanosis Laboratory Tests Test 07/05/20 03:30 White Blood Count 6.8 K/UL (4.8-10.8) Red Blood Count 2.80 M/UL (4.20-5.40) L Hemoglobin 8.1 G/DL (12.0-16.0) L Hematocrit 27.1 % (37.0-47.0) L Mean Corpuscular Volume 97 FL (80-99) Mean Corpuscular Hemoglobin 29.0 PG (27.0-31.0) Mean Corpuscular Hemoglobin Concent 30.0 G/DL (32.0-36.0) L Red Cell Distribution Width 19.3 % (11.6-14.8) H Platelet Count 213 K/UL (150-450) Mean Platelet Volume 8.5 FL (6.5-10.1) Neutrophils (%) (Auto) 56.0 % (45.0-75.0) Lymphocytes (%) (Auto) 29.3 % (20.0-45.0) Monocytes (%) (Auto) 9.8 % (1.0-10.0) Eosinophils (%) (Auto) 3.7 % (0.0-3.0) H Basophils (%) (Auto) 1.1 % (0.0-2.0) Sodium Level 141 MMOL/L (136-145) Potassium Level 3.4 MMOL/L (3.5-5.1) L Chloride Level 99 MMOL/L (98-107) Carbon Dioxide Level 43 MMOL/L (21-32) *H Anion Gap 0 mmol/L (5-15) L Blood Urea Nitrogen 12 mg/dL (7-18) Creatinine 0.5 MG/DL (0.55-1.30) L Estimat Glomerular Filtration Rate > 60 mL/min (>60) Glucose Level 134 MG/DL (74-106) H Calcium Level 9.3 MG/DL (8.5-10.1) Phosphorus Level 2.6 MG/DL (2.5-4.9) Magnesium Level 2.2 MG/DL (1.8-2.4) Total Bilirubin 1.2 MG/DL (0.2-1.0) H Direct Bilirubin 0.2 MG/DL (0.0-0.3) Aspartate Amino Transf (AST/SGOT) 37 U/L (15-37) Alanine Aminotransferase (ALT/SGPT) 25 U/L (12-78) Alkaline Phosphatase 82 U/L (46-116) Total Protein 7.1 G/DL (6.4-8.2) Albumin 2.3 G/DL (3.4-5.0) L Plan Problems: (1) Respiratory distress (2) Respiratory failure Assessment & Plan: 50-year-old female Covid positive respiratory insufficiency intubated on ventilatory support declining. Leukocytosis increase oxygen requirement. Vent settings per pulmonology reviewed identified and agree. Unfortunately further surgical invention at this time is not appropriate as patient is not a candidate and her current condition. Prognosis overall guarded. Tracheostomy can be considered in the future if recovering or shows improvement and requires unable to be weaned from ventilator support. Currently okay for nutritional optimization with NG tube. Will need significant monitoring for decubitus formation given patient's size and condition. Okay for air mattress tolerated. Turn every 2 hours as tolerated. Patient is otherwise critically ill and blood pressure labile. Will need to monitor closely.Bilater al infiltrates are again demonstrated. Stable tube and line positions. will need trach will need to wean vent first (3) Hypoxia (4) Pneumonia due to COVID-19 virus Assessment & Plan: ++ as per pulm and ID (5) Diabetes mellitus out of control Assessment & Plan: DAILY ESTIMATED NEEDS: Needs based on Critical care, obesity 11-14kcal/kg actual body wt (140kg) kcals/kg 8607-7097 total kcals 1.5-2.0g prot/kg IBW (64.5kg) g protein/kg 96-129 g total protein 25-30ml/kg abw (83kg) mL/kg 1801-0476 total fluid mLs NUTRITION DIAGNOSIS: Swallowing difficulty R/T respiratory failure as evidenced by pt orally intubated and sedated, on OGT feeds. CURRENT TF: Vital 1.2 goal of 60ml/hr ENTERAL NUTRITION RECOMMENDATIONS: Vital AF 1.2 @ 60ml/hr x 24 hrs to provide 1440ml, 1728kcal, 108g prot, 1168ml free water * Maintain current critical care and carb controlled TF formula of Vital AF * TF @ goal meeds 100% est kcal/prot needs * HOB over 30 degrees/ water flush per MD TF may be lowered to 55ml/hr for improved BG control while maintaining Kcal and pro needs. ADDITIONAL RECOMMENDATIONS: * Calibrated bedscale wt * Monitor Propofol rate, need for TF adjustment-> now off * Monitor BGs closely : now improved, on novolog q 6rs + NISS * Monitor lytes- K elevated, monitor need for TF change * Rec bowel regimen- now w/ rectal tube . Az Devine Jul 05, 2020 18:40
--- NOTE | 2020-07-05 19:20 | NUR ---
NURSE HAND-OFF REPORT: Latest Vital Signs: Temperature 100.4 , Pulse 91 , B/P 104 /69 , Respiratory Rate 20 , O2 SAT 100 , Mechanical Ventilator, O2 Flow Rate . Vital Sign Comment: stable EKG Rhythm: Sinus Rhythm Rhythm change?: N MD Notified N Response: Latest Meyers Fall Score: 70 Fall Risk: High Risk Safety Measures: Call light Within Reach, Bed Alarm Zone 1, Side Rails Side Rails x2, Bed position Low and Locked. Fall Precautions: Yellow Socks Report given to .Nora ELLINGTON.
--- NOTE | 2020-07-05 19:30 | NUR ---
NURSE NOTES: Received pt with eyes close, trache to vent on ac mode, sedated with Fentanyl at 150mcg/min. Versed 6mg/hr. SR on the monitor bp stable afebrile, Tolerated fdg HOB kept elevated, on aspiration precaution.Rectal tube to gravity with lg amt of brownish stool, bag replaced. Will continue to monitor.
[2020-07-05] MEDS: Dyna-Hex 2% Top Sol 2oz TOPIC SCH (20:25)
[2020-07-05] MEDS: Miralax 17gm pkt GT SCH (20:50)
--- NOTE | 2020-07-05 22:00 | NUR ---
NURSE NOTES: Repositioned for comfort, Suctioned tn whitish secretions via trache minimal in amt. 02 sat >95%
[2020-07-06] VITALS (34 sets, daily range): BP systolic 86–107; BP diastolic 40–73
--- NOTE | 2020-07-06 | NUR ---
NURSE NOTES: Accucheck no coverage pls see emar
--- NOTE | 2020-07-06 02:00 | NUR ---
NURSE NOTES: fio2 down to 70%, 02 sat >95%
--- NOTE | 2020-07-06 04:00 | NUR ---
NURSE NOTES: Complete bed bath with bed changed was done.
[2020-07-06 05:19] LABS: HEMATOCRIT 24.1 % (37.0-47.0); HEMOGLOBIN 7.3 G/DL (12.0-16.0); MEAN CORPUSCULAR VOLUME 96 FL (80-99); PLATELET COUNT 204 K/UL (150-450); RED BLOOD COUNT 2.52 M/UL (4.20-5.40); RED CELL DISTRIBUTION WIDTH 19.2 % (11.6-14.8)
[2020-07-06 05:50] LABS: ALANINE AMINOTRANSFERASE 23 U/L (12-78); ALBUMIN 2.2 G/DL (3.4-5.0); ALBUMIN/GLOBULIN RATIO 0.5 (1.0-2.7); ALKALINE PHOSPHATASE 72 U/L (46-116); ANION GAP 4 mmol/L (5-15); ASPARTATE AMINO TRANSFERASE 31 U/L (15-37); BILIRUBIN,TOTAL 1.6 MG/DL (0.2-1.0); BLOOD UREA NITROGEN 14 mg/dL (7-18); CALCIUM 9.2 MG/DL (8.5-10.1); CHLORIDE 93 MMOL/L (98-107); CREATININE 0.4 MG/DL (0.55-1.30); PHOSPHORUS 2.7 MG/DL (2.5-4.9); POTASSIUM 2.9 MMOL/L (3.5-5.1); SODIUM 139 MMOL/L (136-145)
--- NOTE | 2020-07-06 06:00 | NUR ---
NURSE NOTES: Accucheck with coverage, pls see emar
[2020-07-06 06:01] LABS: CARBON DIOXIDE 43 MMOL/L (21-32)
[2020-07-06 06:02] LABS: BILIRUBIN,DIRECT 0.3 MG/DL (0.0-0.3)
[2020-07-06] MEDS: Midodrine 10mg tab GT SCH ×3 (06:08→20:04)
[2020-07-06] MEDS: NovoLOG Insulin Flexpen SUBQ SCH ×4 (06:10→18:00)
[2020-07-06] MEDS: fentaNYL 2500mcg/NS 250ml 250 ML IV PRN (07:27)
--- NOTE | 2020-07-06 07:32 | NUR ---
NURSE NOTES: Received report from Mireille ELLINGTON.
--- NOTE | 2020-07-06 07:43 | NUR ---
NURSE HAND-OFF REPORT: Latest Vital Signs: Temperature 99.0 , Pulse 99 , B/P 100 /55 , Respiratory Rate 21 , O2 SAT 99 , Mechanical Ventilator, O2 Flow Rate . Vital Sign Comment: EKG Rhythm: Sinus Tachycardia Rhythm change?: Jesus TOLLIVER Notified?: Babs EDWARDS MD Response: Latest Meyers Fall Score: 70 Fall Risk: High Risk Safety Measures: Call light Within Reach, Bed Alarm Zone 1, Side Rails Side Rails x2, Bed position Low and Locked. Fall Precautions: Yellow Socks Report given to Dolores ELLINGTON.
[2020-07-06] MEDS: Versed 100mg/NS 200ml 200 ML IV PRN (07:59)
[2020-07-06] MEDS: D5 1/2NS 1,000 ML IV SCH (08:42)
[2020-07-06] MEDS: Enoxaparin 40mg Inj SUBQ SCH (08:43)
[2020-07-06] MEDS: Docusate 100mg/10ml Liq GT SCH ×2 (08:43→20:04)
[2020-07-06] MEDS: Vitamin D 1000 units Tab GT SCH (08:44)
--- NOTE | 2020-07-06 08:50 | NUR ---
NURSE NOTES: Pt. in bed, sedated response to tactile stimuli. No s/sx of distress. On Mech. vent. dependent with setting AC15/VT600/Fi O2 of 80%/P7. No grimacing noted. Rectal tube in placed patent/intact draining greenish liquid output. F/C in placed patent/intact draining jordyn colored urine. NGT in placed patent/intact running Vital AF at 60cc/hr. HOB elevated at all times. PICC line at right upper arm in placed patent/intact. Bed in low position, locked. Call light within reach. Will cont. to monitor.
--- NOTE | 2020-07-06 09:13 | Infectious Diseases Prog Note ---
Assessment/Plan Assessment/Plan A 1. COVID19 pneumonia 2. Hypoxic respiratory failure 3. Morbid obesity 4. DM type with hyperglycemia 5. Thrombocytopenia 6. leukocytosis resolved 7. Serratia pneumonia treated 8. Anemia 9. VDRF 10. postoperative fever P 1. Finished remdesivir course 2. Finished steroid course Subjective ROS Limited/Unobtainable: Yes Constitutional: Reports: fever, other - T=100 Allergies: Coded Allergies: No Known Allergies (Unverified , 05/28/20) Objective Last 24 Hour Vital Signs Date Time Temp Pulse Resp B/P (MAP) Pulse Ox O2 Delivery O2 Flow Rate FiO2 07/06/20 08:00 80 07/06/20 08:00 96 07/06/20 08:00 100.0 97 23 96/51 (66) 100 07/06/20 07:59 22 92/60 Endotracheal Tube 80 07/06/20 07:27 21 100/55 Mechanical Ventilator 70 07/06/20 07:00 97 25 98/55 (69) 99 07/06/20 07:00 21 111/60 Mechanical Ventilator 70 07/06/20 07:00 21 Mechanical Ventilator 70 07/06/20 06:30 99 18 07/06/20 06:00 99 25 98/48 (65) 99 07/06/20 06:00 21 100/60 Mechanical Ventilator 70 07/06/20 06:00 21 Mechanical Ventilator 70 07/06/20 05:30 100 23 101/50 (67) 97 07/06/20 05:00 101 25 97/53 (68) 96 07/06/20 05:00 24 101/50 Mechanical Ventilator 70 07/06/20 05:00 21 Mechanical Ventilator 70 07/06/20 04:30 103 24 99/54 (69) 95 07/06/20 04:00 101 24 99/54 (69) 99 07/06/20 04:00 20 99/54 Mechanical Ventilator 80 07/06/20 04:00 21 Mechanical Ventilator 80 07/06/20 04:00 80 07/06/20 04:00 85 07/06/20 04:00 Mechanical Ventilator Mechanical Ventilator 07/06/20 03:58 99.0 07/06/20 03:44 98 21 70 07/06/20 03:30 96 21 103/52 (69) 96 07/06/20 03:00 96 21 99/57 (71) 99 07/06/20 03:00 23 103/52 Mechanical Ventilator 80 07/06/20 03:00 20 Mechanical Ventilator 80 07/06/20 02:30 89 20 91/40 (57) 99 07/06/20 02:00 95 20 100/49 (66) 95 07/06/20 02:00 20 91/40 Mechanical Ventilator 80 07/06/20 02:00 20 Mechanical Ventilator 80 07/06/20 01:52 100 22 91/50 (64) 95 07/06/20 01:30 100 21 104/64 (77) 95 07/06/20 01:00 98 20 105/73 (84) 97 07/06/20 01:00 22 111/66 Mechanical Ventilator 80 07/06/20 01:00 20 Mechanical Ventilator 80 07/06/20 00:30 93 20 104/63 (77) 98 07/06/20 00:00 86 07/06/20 00:00 Mechanical Ventilator Mechanical Ventilator 07/06/20 00:00 20 104/69 Mechanical Ventilator 80 07/06/20 00:00 20 Mechanical Ventilator 80 07/06/20 00:00 98.6 92 20 107/66 (80) 97 07/06/20 00:00 80 07/05/20 23:30 89 20 105/63 (77) 97 07/05/20 23:15 92 19 106/68 (81) 97 07/05/20 23:07 89 20 70 07/05/20 23:00 20 106/68 Mechanical Ventilator 80 07/05/20 23:00 20 Mechanical Ventilator 80 07/05/20 23:00 89 19 102/67 (79) 100 07/05/20 22:45 89 17 101/62 (75) 100 07/05/20 22:30 89 19 103/64 (77) 100 07/05/20 22:15 98 26 105/70 (82) 97 07/05/20 22:00 19 105/70 Mechanical Ventilator 80 07/05/20 22:00 20 Mechanical Ventilator 80 07/05/20 22:00 85 19 101/65 (77) 100 07/05/20 21:00 86 20 99/67 (78) 100 07/05/20 21:00 20 100/64 Mechanical Ventilator 80 07/05/20 21:00 20 Mechanical Ventilator 80 07/05/20 20:00 Mechanical Ventilator Mechanical Ventilator 07/05/20 20:00 21 101/67 Mechanical Ventilator 80 07/05/20 20:00 20 Mechanical Ventilator 80 07/05/20 20:00 80 07/05/20 20:00 87 07/05/20 20:00 98.6 85 20 100/65 (77) 100 07/05/20 19:12 91 20 80 07/05/20 19:06 87 16 104/69 (81) 100 07/05/20 19:00 18 104/64 Mechanical Ventilator 80 07/05/20 19:00 18 Mechanical Ventilator 80 07/05/20 18:00 30 114/72 Mechanical Ventilator 80 07/05/20 18:00 30 Mechanical Ventilator 80 07/05/20 18:00 98 26 115/79 (91) 100 07/05/20 17:00 85 24 106/71 (83) 100 07/05/20 17:00 24 106/71 Mechanical Ventilator 80 07/05/20 17:00 23 Mechanical Ventilator 80 07/05/20 16:00 100.4 83 17 99/63 (75) 100 07/05/20 16:00 Mechanical Ventilator Mechanical Ventilator 07/05/20 16:00 18 99/63 Mechanical Ventilator 80 07/05/20 16:00 18 Mechanical Ventilator 80 07/05/20 16:00 80 07/05/20 16:00 80 07/05/20 15:26 84 16 80 07/05/20 15:00 87 23 106/63 (77) 100 07/05/20 15:00 19 106/63 Mechanical Ventilator 80 07/05/20 15:00 19 Mechanical Ventilator 80 07/05/20 14:21 20 Mechanical Ventilator 80 07/05/20 14:00 20 104/70 Mechanical Ventilator 80 07/05/20 14:00 20 Mechanical Ventilator 80 07/05/20 14:00 97 23 104/76 (85) 100 07/05/20 13:15 100.5 07/05/20 13:03 20 109/66 Mechanical Ventilator 80 07/05/20 13:00 97 20 109/74 (86) 100 07/05/20 13:00 20 Mechanical Ventilator 80 07/05/20 12:00 102 22 110/70 (83) 100 07/05/20 12:00 101.0 07/05/20 12:00 20 Mechanical Ventilator 80 07/05/20 12:00 80 07/05/20 12:00 98 07/05/20 12:00 Mechanical Ventilator Mechanical Ventilator 07/05/20 11:14 94 27 80 07/05/20 11:00 106 25 110/73 (85) 99 07/05/20 11:00 21 Mechanical Ventilator 80 07/05/20 10:00 112 28 105/75 (85) 99 07/05/20 10:00 28 Mechanical Ventilator 80 07/05/20 10:00 28 114/72 Mechanical Ventilator 80 Height (Feet): 5 Height (Inches): 6.00 Weight (Pounds): 239 HEENT: status post trach Respiratory/Chest: other - on ventilator, coarse sounds Cardiovascular: normal rate, other - R arm PICC line Abdomen: soft, non tender, other - NG tube feeding Extremities: other - edema Neurologic/Psychiatric: other - seadted Laboratory Tests Test 07/06/20 03:30 07/06/20 06:00 07/06/20 07:35 White Blood Count 7.0 K/UL (4.8-10.8) Red Blood Count 2.52 M/UL (4.20-5.40) L Hemoglobin 7.3 G/DL (12.0-16.0) L Hematocrit 24.1 % (37.0-47.0) L Mean Corpuscular Volume 96 FL (80-99) Mean Corpuscular Hemoglobin 29.1 PG (27.0-31.0) Mean Corpuscular Hemoglobin Concent 30.3 G/DL (32.0-36.0) L Red Cell Distribution Width 19.2 % (11.6-14.8) H Platelet Count 204 K/UL (150-450) Mean Platelet Volume 7.5 FL (6.5-10.1) Neutrophils (%) (Auto) % (45.0-75.0) Lymphocytes (%) (Auto) % (20.0-45.0) Monocytes (%) (Auto) % (1.0-10.0) Eosinophils (%) (Auto) % (0.0-3.0) Basophils (%) (Auto) % (0.0-2.0) Neutrophils % (Manual) Pending Lymphocytes % (Manual) Pending Platelet Estimate Pending Platelet Morphology Pending Sodium Level 139 MMOL/L (136-145) Potassium Level 2.9 MMOL/L (3.5-5.1) L Chloride Level 93 MMOL/L (98-107) L Carbon Dioxide Level 43 MMOL/L (21-32) *H Anion Gap 4 mmol/L (5-15) L Blood Urea Nitrogen 14 mg/dL (7-18) Creatinine 0.4 MG/DL (0.55-1.30) L Estimat Glomerular Filtration Rate > 60 mL/min (>60) Glucose Level 136 MG/DL (74-106) H Calcium Level 9.2 MG/DL (8.5-10.1) Phosphorus Level 2.7 MG/DL (2.5-4.9) Magnesium Level 1.8 MG/DL (1.8-2.4) Total Bilirubin 1.6 MG/DL (0.2-1.0) H Direct Bilirubin 0.3 MG/DL (0.0-0.3) Aspartate Amino Transf (AST/SGOT) 31 U/L (15-37) Alanine Aminotransferase (ALT/SGPT) 23 U/L (12-78) Alkaline Phosphatase 72 U/L (46-116) Total Protein 6.9 G/DL (6.4-8.2) Albumin 2.2 G/DL (3.4-5.0) L Globulin 4.7 g/dL Albumin/Globulin Ratio 0.5 (1.0-2.7) L Stool Occult Blood Pending Arterial Blood pH 7.478 (7.350-7.450) Arterial Blood Partial Pressure CO2 57.1 mmHg (35.0-45.0) *H Arterial Blood Partial Pressure O2 88.5 mmHg (75.0-100.0) Arterial Blood HCO3 41.4 mmol/L (22.0-26.0) *H Arterial Blood Oxygen Saturation 96.1 % (95-100) Arterial Blood Base Excess 16.0 (-2-2) *H Jeremiah Test Positive Current Medications Medications (Trade) Dose Ordered Sig/Zelda Route PRN Reason Start Time Stop Time Status Last Admin Dose Admin Acetaminophen (Tylenol) 650 mg Q4H PRN NG Temp >100.5 06/29/20 10:15 07/29/20 10:14 07/05/20 12:45 Acetaminophen (Tylenol) 650 mg Q6H PRN NG Mild Pain (Pain Scale 1-3) 06/29/20 10:15 07/29/20 10:14 Chlorhexidine Gluconate (Inna-Hex 2%) 1 applic DAILY@2000 TOPIC 05/30/20 20:00 08/28/20 19:59 07/05/20 20:25 Dextrose (Dextrose 50%) 25 ml Q30M PRN IV Hypoglycemia 06/05/20 10:45 09/03/20 10:44 Dextrose (Dextrose 50%) 50 ml Q30M PRN IV Hypoglycemia 06/05/20 10:45 09/03/20 10:44 Dextrose/Sodium Chloride 1,000 ml @ 50 mls/hr Q20H IV 06/24/20 16:30 07/24/20 16:29 07/06/20 08:42 Docusate Sodium (Colace) 100 mg Q12HR GT 06/07/20 21:00 07/07/20 20:59 07/06/20 08:43 Enoxaparin Sodium (Lovenox) 40 mg DAILY SUBQ 05/30/20 10:00 08/28/20 09:59 07/06/20 08:43 Fentanyl Citrate 250 ml @ 0 mls/hr Q24H PRN IV SEDATION 07/05/20 12:59 07/07/20 12:58 07/06/20 07:27 Furosemide (Lasix) 40 mg DAILY IV 06/22/20 09:00 07/22/20 08:59 07/06/20 08:43 Insulin Aspart (NovoLOG) EVERY 6 HOURS SUBQ 06/07/20 00:00 09/03/20 11:59 07/06/20 06:10 Lidocaine HCl (Xylocaine 1% 30ml) 30 ml NOW PRN INJ Radiology Procedure 07/04/20 10:45 07/07/20 10:44 Midazolam HCl 200 ml @ 0 mls/hr Q24H PRN IV sedation 07/06/20 06:00 07/08/20 06:00 07/06/20 07:59 Midodrine (Pro-Amatine) 10 mg Q8HR GT 06/30/20 14:00 09/12/20 13:59 07/06/20 06:08 Polyethylene Glycol (Miralax) 17 gm BEDTIME GT 06/07/20 21:00 07/07/20 20:59 07/05/20 20:50 Sodium Bicarbonate (Sodium Bicarbonate 4%) 1 ml NOW PRN IV Radiology Procedure 07/04/20 10:45 07/07/20 10:44 Vitamin D (Vitamin D) 5,000 unit DAILY GT 06/28/20 09:00 07/28/20 08:59 07/06/20 08:44 Colt Arana MD Jul 06, 2020 09:13
--- NOTE | 2020-07-06 10:06 | Pulmonology Progress Note ---
Subjective ROS Limited/Unobtainable: Yes Interval Events: S/p tracheostomy 07/04/20 Constitutional: Reports: fever, other - T=100 HEENT: Repors: no symptoms Respiratory: Reports: no symptoms Cardiovascular: Reports: no symptoms Gastrointestinal/Abdominal: Reports: no symptoms Genitourinary: Reports: no symptoms Allergies: Coded Allergies: No Known Allergies (Unverified , 05/28/20) All Systems: reviewed and negative except above Objective Last 24 Hour Vital Signs Date Time Temp Pulse Resp B/P (MAP) Pulse Ox O2 Delivery O2 Flow Rate FiO2 07/06/20 08:00 80 07/06/20 08:00 96 07/06/20 08:00 100.0 97 23 96/51 (66) 100 07/06/20 07:59 22 92/60 Endotracheal Tube 80 07/06/20 07:27 21 100/55 Mechanical Ventilator 70 07/06/20 07:00 97 25 98/55 (69) 99 07/06/20 07:00 21 111/60 Mechanical Ventilator 70 07/06/20 07:00 21 Mechanical Ventilator 70 07/06/20 06:30 99 18 07/06/20 06:00 99 25 98/48 (65) 99 07/06/20 06:00 21 100/60 Mechanical Ventilator 70 07/06/20 06:00 21 Mechanical Ventilator 70 07/06/20 05:30 100 23 101/50 (67) 97 07/06/20 05:00 101 25 97/53 (68) 96 07/06/20 05:00 24 101/50 Mechanical Ventilator 70 07/06/20 05:00 21 Mechanical Ventilator 70 07/06/20 04:30 103 24 99/54 (69) 95 07/06/20 04:00 101 24 99/54 (69) 99 07/06/20 04:00 20 99/54 Mechanical Ventilator 80 07/06/20 04:00 21 Mechanical Ventilator 80 07/06/20 04:00 80 07/06/20 04:00 85 07/06/20 04:00 Mechanical Ventilator Mechanical Ventilator 07/06/20 03:58 99.0 07/06/20 03:44 98 21 70 07/06/20 03:30 96 21 103/52 (69) 96 07/06/20 03:00 96 21 99/57 (71) 99 07/06/20 03:00 23 103/52 Mechanical Ventilator 80 07/06/20 03:00 20 Mechanical Ventilator 80 07/06/20 02:30 89 20 91/40 (57) 99 07/06/20 02:00 95 20 100/49 (66) 95 07/06/20 02:00 20 91/40 Mechanical Ventilator 80 07/06/20 02:00 20 Mechanical Ventilator 80 07/06/20 01:52 100 22 91/50 (64) 95 07/06/20 01:30 100 21 104/64 (77) 95 07/06/20 01:00 98 20 105/73 (84) 97 07/06/20 01:00 22 111/66 Mechanical Ventilator 80 07/06/20 01:00 20 Mechanical Ventilator 80 07/06/20 00:30 93 20 104/63 (77) 98 07/06/20 00:00 86 07/06/20 00:00 Mechanical Ventilator Mechanical Ventilator 07/06/20 00:00 20 104/69 Mechanical Ventilator 80 07/06/20 00:00 20 Mechanical Ventilator 80 07/06/20 00:00 98.6 92 20 107/66 (80) 97 07/06/20 00:00 80 07/05/20 23:30 89 20 105/63 (77) 97 07/05/20 23:15 92 19 106/68 (81) 97 07/05/20 23:07 89 20 70 07/05/20 23:00 20 106/68 Mechanical Ventilator 80 07/05/20 23:00 20 Mechanical Ventilator 80 07/05/20 23:00 89 19 102/67 (79) 100 07/05/20 22:45 89 17 101/62 (75) 100 07/05/20 22:30 89 19 103/64 (77) 100 07/05/20 22:15 98 26 105/70 (82) 97 07/05/20 22:00 19 105/70 Mechanical Ventilator 80 07/05/20 22:00 20 Mechanical Ventilator 80 07/05/20 22:00 85 19 101/65 (77) 100 07/05/20 21:00 86 20 99/67 (78) 100 07/05/20 21:00 20 100/64 Mechanical Ventilator 80 07/05/20 21:00 20 Mechanical Ventilator 80 07/05/20 20:00 Mechanical Ventilator Mechanical Ventilator 07/05/20 20:00 21 101/67 Mechanical Ventilator 80 07/05/20 20:00 20 Mechanical Ventilator 80 07/05/20 20:00 80 07/05/20 20:00 87 07/05/20 20:00 98.6 85 20 100/65 (77) 100 07/05/20 19:12 91 20 80 07/05/20 19:06 87 16 104/69 (81) 100 07/05/20 19:00 18 104/64 Mechanical Ventilator 80 07/05/20 19:00 18 Mechanical Ventilator 80 07/05/20 18:00 30 114/72 Mechanical Ventilator 80 07/05/20 18:00 30 Mechanical Ventilator 80 07/05/20 18:00 98 26 115/79 (91) 100 07/05/20 17:00 85 24 106/71 (83) 100 07/05/20 17:00 24 106/71 Mechanical Ventilator 80 07/05/20 17:00 23 Mechanical Ventilator 80 07/05/20 16:00 100.4 83 17 99/63 (75) 100 07/05/20 16:00 Mechanical Ventilator Mechanical Ventilator 07/05/20 16:00 18 99/63 Mechanical Ventilator 80 07/05/20 16:00 18 Mechanical Ventilator 80 07/05/20 16:00 80 07/05/20 16:00 80 07/05/20 15:26 84 16 80 07/05/20 15:00 87 23 106/63 (77) 100 07/05/20 15:00 19 106/63 Mechanical Ventilator 80 07/05/20 15:00 19 Mechanical Ventilator 80 07/05/20 14:21 20 Mechanical Ventilator 80 07/05/20 14:00 20 104/70 Mechanical Ventilator 80 07/05/20 14:00 20 Mechanical Ventilator 80 07/05/20 14:00 97 23 104/76 (85) 100 07/05/20 13:15 100.5 07/05/20 13:03 20 109/66 Mechanical Ventilator 80 07/05/20 13:00 97 20 109/74 (86) 100 07/05/20 13:00 20 Mechanical Ventilator 80 07/05/20 12:00 102 22 110/70 (83) 100 07/05/20 12:00 101.0 07/05/20 12:00 20 Mechanical Ventilator 80 07/05/20 12:00 80 07/05/20 12:00 98 07/05/20 12:00 Mechanical Ventilator Mechanical Ventilator 07/05/20 11:14 94 27 80 07/05/20 11:00 106 25 110/73 (85) 99 07/05/20 11:00 21 Mechanical Ventilator 80 Intake and Output 07/05/20 07/06/20 19:00 07:00 Intake Total 1874 ml 1754 ml Output Total 2605 ml 1490 ml Balance -731 ml 264 ml Free Water 300 ml 110 ml IV Total 814 ml 924 ml Tube Feeding 640 ml 720 ml Other 120 ml Output Urine Total 2405 ml 1390 ml Stool Total 200 ml 100 ml General Appearance: no acute distress HEENT: normocephalic, status post trach Respiratory: chest wall non-tender Cardiovascular: normal peripheral pulses Abdomen: normal bowel sounds Laboratory Tests 07/06/20 03:30: White Blood Count 7.0, Red Blood Count 2.52L, Hemoglobin 7.3L, Hematocrit 24.1L, Mean Corpuscular Volume 96, Mean Corpuscular Hemoglobin 29.1, Mean Corpuscular Hemoglobin Concent 30.3L, Red Cell Distribution Width 19.2H, Platelet Count 204, Mean Platelet Volume 7.5, Neutrophils (%) (Auto) , Lymphocytes (%) (Auto) , Monocytes (%) (Auto) , Eosinophils (%) (Auto) , Basophils (%) (Auto) , Differential Total Cells Counted 100, Neutrophils % (Manual) 53, Lymphocytes % (Manual) 36, Monocytes % (Manual) 7, Eosinophils % (Manual) 4H, Basophils % (Manual) 0, Band Neutrophils 0, Platelet Estimate Adequate, Platelet Morphology Normal, Hypochromasia 1+, Anisocytosis 2+, Sodium Level 139, Potassium Level 2.9L, Chloride Level 93L, Carbon Dioxide Level 43*H, Anion Gap 4L, Blood Urea Nitrogen 14, Creatinine 0.4L, Estimat Glomerular Filtration Rate > 60, Glucose Level 136H, Calcium Level 9.2, Phosphorus Level 2.7, Magnesium Level 1.8, Total Bilirubin 1.6H, Direct Bilirubin 0.3, Aspartate Amino Transf (AST/SGOT) 31, Alanine Aminotransferase (ALT/SGPT) 23, Alkaline Phosphatase 72, Total Protein 6.9, Albumin 2.2L, Globulin 4.7, Albumin/Globulin Ratio 0.5L 07/06/20 06:00: Stool Occult Blood [Pending] 07/06/20 07:35: Arterial Blood pH 7.478H, Arterial Blood Partial Pressure CO2 57.1*H, Arterial Blood Partial Pressure O2 88.5, Arterial Blood HCO3 41.4*H, Arterial Blood Oxygen Saturation 96.1, Arterial Blood Base Excess 16.0*H, Jeremiah Test Positive Current Medications Medications (Trade) Dose Ordered Sig/Zelda Route PRN Reason Start Time Stop Time Status Last Admin Dose Admin Acetaminophen (Tylenol) 650 mg Q4H PRN NG Temp >100.5 06/29/20 10:15 07/29/20 10:14 07/05/20 12:45 Acetaminophen (Tylenol) 650 mg Q6H PRN NG Mild Pain (Pain Scale 1-3) 06/29/20 10:15 07/29/20 10:14 Chlorhexidine Gluconate (Inna-Hex 2%) 1 applic DAILY@2000 TOPIC 05/30/20 20:00 08/28/20 19:59 07/05/20 20:25 Dextrose (Dextrose 50%) 25 ml Q30M PRN IV Hypoglycemia 06/05/20 10:45 09/03/20 10:44 Dextrose (Dextrose 50%) 50 ml Q30M PRN IV Hypoglycemia 06/05/20 10:45 09/03/20 10:44 Dextrose/Sodium Chloride 1,000 ml @ 50 mls/hr Q20H IV 06/24/20 16:30 07/24/20 16:29 07/06/20 08:42 Docusate Sodium (Colace) 100 mg Q12HR GT 06/07/20 21:00 07/07/20 20:59 07/06/20 08:43 Enoxaparin Sodium (Lovenox) 40 mg DAILY SUBQ 05/30/20 10:00 08/28/20 09:59 07/06/20 08:43 Fentanyl Citrate 250 ml @ 0 mls/hr Q24H PRN IV SEDATION 07/05/20 12:59 07/07/20 12:58 07/06/20 07:27 Furosemide (Lasix) 40 mg DAILY IV 06/22/20 09:00 07/22/20 08:59 07/06/20 08:43 Insulin Aspart (NovoLOG) EVERY 6 HOURS SUBQ 06/07/20 00:00 09/03/20 11:59 07/06/20 06:10 Lidocaine HCl (Xylocaine 1% 30ml) 30 ml NOW PRN INJ Radiology Procedure 07/04/20 10:45 07/07/20 10:44 Midazolam HCl 200 ml @ 0 mls/hr Q24H PRN IV sedation 07/06/20 06:00 07/08/20 06:00 07/06/20 07:59 Midodrine (Pro-Amatine) 10 mg Q8HR GT 06/30/20 14:00 09/12/20 13:59 07/06/20 06:08 Polyethylene Glycol (Miralax) 17 gm BEDTIME GT 06/07/20 21:00 07/07/20 20:59 07/05/20 20:50 Sodium Bicarbonate (Sodium Bicarbonate 4%) 1 ml NOW PRN IV Radiology Procedure 07/04/20 10:45 07/07/20 10:44 Vitamin D (Vitamin D) 5,000 unit DAILY GT 06/28/20 09:00 07/28/20 08:59 07/06/20 08:44 Assessment/Plan Assessment/Plan 1. COVID-19 pneumonia -Intubated 05/28/20 - We will continue broad-spectrum antibiotics. -s/p solumedrol, Rocephin -Continue PEEP 6 ->7 - Peak airway pressures high; 42 - FiO2 100% -> 90 ->80->60 ->40 ->80 ->100 ->80 -70; -will continue OGT feeding -Continue sedation; Need to keep patient completely sedated. 2. Hyponatremia -Per primary MD 3. Elevated inflammatory markers - has high D dimer; Lovenox re-started 4. Decrease PEEP Continue weaning efforts S/p trach Discussed with surgery Will dc IV fluids Javier Nava MD Jul 06, 2020 10:05
[2020-07-06] MEDS ORDERED: D5 1/2NS 1000ml IV ONE ×2 (10:10→10:12)
[2020-07-06] MEDS ORDERED: Tubing IV Secondary IV ONE ×2 (10:10→10:12)
[2020-07-06] MEDS ORDERED: Sterile Water Irrig 1000ml IRRIG ONE (10:12)
--- NOTE | 2020-07-06 10:19 | NUR ---
NURSE NOTES: Seen by Dr. Nava with new orders. Orders noted and carried out.
--- NOTE | 2020-07-06 11:30 | NUR ---
NURSE NOTES: Seen by Dr. Tyler with new orders. Noted and carried out.
--- NOTE | 2020-07-06 12:26 | Nephrology Progress Note ---
Assessment/Plan Problem List: (1) DEVENDRA (acute kidney injury) (2) Morbid obesity (3) Diabetes mellitus out of control (4) Pneumonia due to COVID-19 virus (5) Respiratory failure Assessment Acute renal failure Obstructive uropathy, clogged Lennon Respiratory failure COVID-19 pneumonia Morbid obesity Plan July 06: Low potassium addressed. Albumin bolus for low BP given. Patient remains full code. Continue to monitor electrolytes and renal parameters. Continue per consultants. 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 July 05: Trach to vent. FiO2 80%. Renal parameters stable. PCO2 remains high at 44. Continue to monitor renal parameters. July 04: Patient now trach. Full code. Labs reviewed. Renal parameters stable. Low magnesium addressed. July 03: Intubated. Full code. Labs reviewed. Abnormal electrolytes addressed. Continue per consultants. Overall status unchanged. July 02: Remains intubated. Remains full code. Remains on FiO2 of 70%. Labs reviewed. Abnormal electrolytes addressed. Continue per pulmonary. July 01: Remains on 70% FiO2. Full code. Intubated on ventilator. Retaining CO2. Discussed with RN. Will do ABG today. Albumin bolus given. 1 dose of Diamox given. June 30: Status quo. Labs reviewed. Abnormal electrolytes addressed. Remains full code. Remains on ventilator. Magnesium sulfate 4 gram IVPB given. June 29: Full code. Intubated on ventilator. Labs reviewed. Stable from renal standpoint of view. Continue per consultants. June 28: Remains full code. Remains intubated on ventilator. Labs reviewed. Vitamin D supplement ordered. Continue to monitor renal parameters. Continue per consultants. June 27: Remains full code. Intubated on ventilator. Labs reviewed. Abnormal electrolyte addressed. Continue to monitor renal parameters and electrolytes. Continue per consultants. June 26: Labs reviewed. Remains full code. Remains intubated. Back on NGT feeding. Continue to monitor renal parameters. June 25: Labs reviewed. Renal parameters stable. Remains full code. Due to positional status patient could not be fed via NG tube. Starting TPN? Is being entertained. Continue per consultants. June 24: Labs reviewed. Renal parameters stable. Remains full code. Remains intubated on ventilator. Continue per consultants. June 23: Labs reviewed. Renal parameters stable. Discussed with RN. Abnormal electrolyte addressed. Remains full code. Remains on ventilator. Continue per consultants. June 22: Labs reviewed. Low potassium addressed. Discussed with RAKEL Moran. Patient full code. Remains on ventilator. Continue to monitor renal parameters. June 21. Labs reviewed. Abnormal electrolyte addressed. Full code. Remains on ventilator. Medication list reviewed. Continue per pulmonary management. DC IV fluid, resume Lasix daily, check chest x-ray. June 20: Labs reviewed. Abnormal electrolytes. Patient remains full code. Continue per consultants. Noted and addressed June 19: Labs reviewed. Abnormal electrolytes noted and addressed. Remains intubated on ventilator. Remains full code. June 18: Labs reviewed. Remains intubated on ventilator. Full code. Abnormal electrolyte addressed. Continue as is. June 17: Labs reviewed. Abnormal electrolytes addressed. Patient remains full code and intubated on ventilator. Continue per consultants. Renal parameters are within normal limits. June 16: Labs reviewed. Potassium chloride replaced. Remains full code. Remains intubated on ventilator. Continue per consultants. Continue to monitor renal parameters. June 15: Labs reviewed. Serum creatinine 1. Stable from renal standpoint to view. Continue per consultants. June 14: Labs reviewed. Full code. Serum creatinine of 3.5 down to 1.4. Low potassium addressed. Continue per current treatment plan. Continue to monitor renal parameters. Midodrine started. Albumin bolus given. Previously: DC Lasix drip Increase Protonix dose Monitor renal parameters, electrolytes Per orders Subjective ROS Limited/Unobtainable: Yes Objective Objective Last 24 Hour Vital Signs Date Time Temp Pulse Resp B/P (MAP) Pulse Ox O2 Delivery O2 Flow Rate FiO2 07/06/20 11:00 90 24 89/48 (62) 100 07/06/20 10:00 93 22 89/51 (64) 100 07/06/20 09:00 95 24 97/53 (68) 100 07/06/20 08:00 Mechanical Ventilator Mechanical Ventilator 07/06/20 08:00 80 07/06/20 08:00 96 07/06/20 08:00 100.0 97 23 96/51 (66) 100 07/06/20 07:59 22 92/60 Endotracheal Tube 80 07/06/20 07:27 21 100/55 Mechanical Ventilator 70 07/06/20 07:26 95 23 70 07/06/20 07:00 97 25 98/55 (69) 99 07/06/20 07:00 21 111/60 Mechanical Ventilator 70 07/06/20 07:00 21 Mechanical Ventilator 70 07/06/20 06:30 99 18 07/06/20 06:00 99 25 98/48 (65) 99 07/06/20 06:00 21 100/60 Mechanical Ventilator 70 07/06/20 06:00 21 Mechanical Ventilator 70 07/06/20 05:30 100 23 101/50 (67) 97 07/06/20 05:00 101 25 97/53 (68) 96 07/06/20 05:00 24 101/50 Mechanical Ventilator 70 07/06/20 05:00 21 Mechanical Ventilator 70 07/06/20 04:30 103 24 99/54 (69) 95 07/06/20 04:00 101 24 99/54 (69) 99 07/06/20 04:00 20 99/54 Mechanical Ventilator 80 07/06/20 04:00 21 Mechanical Ventilator 80 07/06/20 04:00 80 07/06/20 04:00 85 07/06/20 04:00 Mechanical Ventilator Mechanical Ventilator 07/06/20 03:58 99.0 07/06/20 03:44 98 21 70 07/06/20 03:30 96 21 103/52 (69) 96 07/06/20 03:00 96 21 99/57 (71) 99 07/06/20 03:00 23 103/52 Mechanical Ventilator 80 07/06/20 03:00 20 Mechanical Ventilator 80 07/06/20 02:30 89 20 91/40 (57) 99 07/06/20 02:00 95 20 100/49 (66) 95 07/06/20 02:00 20 91/40 Mechanical Ventilator 80 07/06/20 02:00 20 Mechanical Ventilator 80 07/06/20 01:52 100 22 91/50 (64) 95 07/06/20 01:30 100 21 104/64 (77) 95 07/06/20 01:00 98 20 105/73 (84) 97 07/06/20 01:00 22 111/66 Mechanical Ventilator 80 07/06/20 01:00 20 Mechanical Ventilator 80 07/06/20 00:30 93 20 104/63 (77) 98 07/06/20 00:00 86 07/06/20 00:00 Mechanical Ventilator Mechanical Ventilator 07/06/20 00:00 20 104/69 Mechanical Ventilator 80 07/06/20 00:00 20 Mechanical Ventilator 80 07/06/20 00:00 98.6 92 20 107/66 (80) 97 07/06/20 00:00 80 07/05/20 23:30 89 20 105/63 (77) 97 07/05/20 23:15 92 19 106/68 (81) 97 07/05/20 23:07 89 20 70 07/05/20 23:00 20 106/68 Mechanical Ventilator 80 07/05/20 23:00 20 Mechanical Ventilator 80 07/05/20 23:00 89 19 102/67 (79) 100 07/05/20 22:45 89 17 101/62 (75) 100 07/05/20 22:30 89 19 103/64 (77) 100 07/05/20 22:15 98 26 105/70 (82) 97 07/05/20 22:00 19 105/70 Mechanical Ventilator 80 07/05/20 22:00 20 Mechanical Ventilator 80 07/05/20 22:00 85 19 101/65 (77) 100 07/05/20 21:00 86 20 99/67 (78) 100 07/05/20 21:00 20 100/64 Mechanical Ventilator 80 07/05/20 21:00 20 Mechanical Ventilator 80 07/05/20 20:00 Mechanical Ventilator Mechanical Ventilator 07/05/20 20:00 21 101/67 Mechanical Ventilator 80 07/05/20 20:00 20 Mechanical Ventilator 80 07/05/20 20:00 80 07/05/20 20:00 87 07/05/20 20:00 98.6 85 20 100/65 (77) 100 07/05/20 19:12 91 20 80 07/05/20 19:06 87 16 104/69 (81) 100 07/05/20 19:00 18 104/64 Mechanical Ventilator 80 07/05/20 19:00 18 Mechanical Ventilator 80 07/05/20 18:00 30 114/72 Mechanical Ventilator 80 07/05/20 18:00 30 Mechanical Ventilator 80 07/05/20 18:00 98 26 115/79 (91) 100 07/05/20 17:00 85 24 106/71 (83) 100 07/05/20 17:00 24 106/71 Mechanical Ventilator 80 07/05/20 17:00 23 Mechanical Ventilator 80 07/05/20 16:00 100.4 83 17 99/63 (75) 100 07/05/20 16:00 Mechanical Ventilator Mechanical Ventilator 07/05/20 16:00 18 99/63 Mechanical Ventilator 80 07/05/20 16:00 18 Mechanical Ventilator 80 07/05/20 16:00 80 07/05/20 16:00 80 07/05/20 15:26 84 16 80 07/05/20 15:00 87 23 106/63 (77) 100 07/05/20 15:00 19 106/63 Mechanical Ventilator 80 07/05/20 15:00 19 Mechanical Ventilator 80 07/05/20 14:21 20 Mechanical Ventilator 80 07/05/20 14:00 20 104/70 Mechanical Ventilator 80 07/05/20 14:00 20 Mechanical Ventilator 80 07/05/20 14:00 97 23 104/76 (85) 100 07/05/20 13:15 100.5 07/05/20 13:03 20 109/66 Mechanical Ventilator 80 07/05/20 13:00 97 20 109/74 (86) 100 07/05/20 13:00 20 Mechanical Ventilator 80 Intake and Output 07/05/20 07/06/20 19:00 07:00 Intake Total 1874 ml 1754 ml Output Total 2605 ml 1490 ml Balance -731 ml 264 ml Free Water 300 ml 110 ml IV Total 814 ml 924 ml Tube Feeding 640 ml 720 ml Other 120 ml Output Urine Total 2405 ml 1390 ml Stool Total 200 ml 100 ml Current Medications Medications (Trade) Dose Ordered Sig/Zelda Route PRN Reason Start Time Stop Time Status Last Admin Dose Admin Acetaminophen (Tylenol) 650 mg Q4H PRN NG Temp >100.5 06/29/20 10:15 07/29/20 10:14 07/05/20 12:45 Acetaminophen (Tylenol) 650 mg Q6H PRN NG Mild Pain (Pain Scale 1-3) 06/29/20 10:15 07/29/20 10:14 Chlorhexidine Gluconate (Inna-Hex 2%) 1 applic DAILY@1999 TOPIC 05/30/20 20:00 08/28/20 19:59 07/05/20 20:25 Dextrose (Dextrose 50%) 25 ml Q30M PRN IV Hypoglycemia 06/05/20 10:45 09/03/20 10:44 Dextrose (Dextrose 50%) 50 ml Q30M PRN IV Hypoglycemia 06/05/20 10:45 09/03/20 10:44 Docusate Sodium (Colace) 100 mg Q12HR GT 06/07/20 21:00 07/07/20 20:59 07/06/20 08:43 Enoxaparin Sodium (Lovenox) 40 mg DAILY SUBQ 05/30/20 10:00 08/28/20 09:59 07/06/20 08:43 Fentanyl Citrate 250 ml @ 0 mls/hr Q24H PRN IV SEDATION 07/05/20 12:59 07/07/20 12:58 07/06/20 07:27 Furosemide (Lasix) 40 mg DAILY IV 06/22/20 09:00 07/22/20 08:59 07/06/20 08:43 Insulin Aspart (NovoLOG) EVERY 6 HOURS SUBQ 06/07/20 00:00 09/03/20 11:59 07/06/20 06:10 Lidocaine HCl (Xylocaine 1% 30ml) 30 ml NOW PRN INJ Radiology Procedure 07/04/20 10:45 07/07/20 10:44 Midazolam HCl 200 ml @ 0 mls/hr Q24H PRN IV sedation 07/06/20 06:00 07/08/20 06:00 07/06/20 07:59 Midodrine (Pro-Amatine) 10 mg Q8HR GT 06/30/20 14:00 09/12/20 13:59 07/06/20 06:08 Polyethylene Glycol (Miralax) 17 gm BEDTIME GT 06/07/20 21:00 07/07/20 20:59 07/05/20 20:50 Potassium Chloride 100 ml @ 100 mls/hr Q1HR IVPB 07/06/20 11:00 07/06/20 14:59 07/06/20 11:15 Sodium Bicarbonate (Sodium Bicarbonate 4%) 1 ml NOW PRN IV Radiology Procedure 07/04/20 10:45 07/07/20 10:44 Vitamin D (Vitamin D) 5,000 unit DAILY GT 06/28/20 09:00 07/28/20 08:59 07/06/20 08:44 Laboratory Tests 07/06/20 03:30: White Blood Count 7.0, Red Blood Count 2.52L, Hemoglobin 7.3L, Hematocrit 24.1L, Mean Corpuscular Volume 96, Mean Corpuscular Hemoglobin 29.1, Mean Corpuscular Hemoglobin Concent 30.3L, Red Cell Distribution Width 19.2H, Platelet Count 204, Mean Platelet Volume 7.5, Neutrophils (%) (Auto) , Lymphocytes (%) (Auto) , Monocytes (%) (Auto) , Eosinophils (%) (Auto) , Basophils (%) (Auto) , Differential Total Cells Counted 100, Neutrophils % (Manual) 53, Lymphocytes % (Manual) 36, Monocytes % (Manual) 7, Eosinophils % (Manual) 4H, Basophils % (Manual) 0, Band Neutrophils 0, Platelet Estimate Adequate, Platelet Morphology Normal, Hypochromasia 1+, Anisocytosis 2+, Sodium Level 139, Potassium Level 2.9L, Chloride Level 93L, Carbon Dioxide Level 43*H, Anion Gap 4L, Blood Urea Nitrogen 14, Creatinine 0.4L, Estimat Glomerular Filtration Rate > 60, Glucose Level 136H, Calcium Level 9.2, Phosphorus Level 2.7, Magnesium Level 1.8, Total Bilirubin 1.6H, Direct Bilirubin 0.3, Aspartate Amino Transf (AST/SGOT) 31, Alanine Aminotransferase (ALT/SGPT) 23, Alkaline Phosphatase 72, Total Protein 6.9, Albumin 2.2L, Globulin 4.7, Albumin/Globulin Ratio 0.5L 07/06/20 06:00: Stool Occult Blood [Pending] 07/06/20 07:35: Arterial Blood pH 7.478H, Arterial Blood Partial Pressure CO2 57.1*H, Arterial Blood Partial Pressure O2 88.5, Arterial Blood HCO3 41.4*H, Arterial Blood Oxygen Saturation 96.1, Arterial Blood Base Excess 16.0*H, Jeremiah Test Positive Height (Feet): 5 Height (Inches): 6.00 Weight (Pounds): 239 General Appearance: no apparent distress EENT: other - Trach to vent Cardiovascular: tachycardia Respiratory/Chest: decreased breath sounds Abdomen: distended Rigo Tyler MD Jul 06, 2020 12:26
--- NOTE | 2020-07-06 12:35 | Surgery Progress Note ---
Surgery Progress Note Subjective Procedure Performed Tracheostomy Bronchoscopy Additional Comments ill appearing on support labs noted exam stable Objective Last 24 Hour Vital Signs Date Time Temp Pulse Resp B/P (MAP) Pulse Ox O2 Delivery O2 Flow Rate FiO2 07/06/20 11:00 90 24 89/48 (62) 100 07/06/20 10:00 93 22 89/51 (64) 100 07/06/20 09:00 95 24 97/53 (68) 100 07/06/20 08:00 Mechanical Ventilator Mechanical Ventilator 07/06/20 08:00 80 07/06/20 08:00 96 07/06/20 08:00 100.0 97 23 96/51 (66) 100 07/06/20 07:59 22 92/60 Endotracheal Tube 80 07/06/20 07:27 21 100/55 Mechanical Ventilator 70 07/06/20 07:26 95 23 70 07/06/20 07:00 97 25 98/55 (69) 99 07/06/20 07:00 21 111/60 Mechanical Ventilator 70 07/06/20 07:00 21 Mechanical Ventilator 70 07/06/20 06:30 99 18 07/06/20 06:00 99 25 98/48 (65) 99 07/06/20 06:00 21 100/60 Mechanical Ventilator 70 07/06/20 06:00 21 Mechanical Ventilator 70 07/06/20 05:30 100 23 101/50 (67) 97 07/06/20 05:00 101 25 97/53 (68) 96 07/06/20 05:00 24 101/50 Mechanical Ventilator 70 07/06/20 05:00 21 Mechanical Ventilator 70 07/06/20 04:30 103 24 99/54 (69) 95 07/06/20 04:00 101 24 99/54 (69) 99 07/06/20 04:00 20 99/54 Mechanical Ventilator 80 07/06/20 04:00 21 Mechanical Ventilator 80 07/06/20 04:00 80 07/06/20 04:00 85 07/06/20 04:00 Mechanical Ventilator Mechanical Ventilator 07/06/20 03:58 99.0 07/06/20 03:44 98 21 70 07/06/20 03:30 96 21 103/52 (69) 96 07/06/20 03:00 96 21 99/57 (71) 99 07/06/20 03:00 23 103/52 Mechanical Ventilator 80 07/06/20 03:00 20 Mechanical Ventilator 80 07/06/20 02:30 89 20 91/40 (57) 99 07/06/20 02:00 95 20 100/49 (66) 95 07/06/20 02:00 20 91/40 Mechanical Ventilator 80 07/06/20 02:00 20 Mechanical Ventilator 80 07/06/20 01:52 100 22 91/50 (64) 95 07/06/20 01:30 100 21 104/64 (77) 95 07/06/20 01:00 98 20 105/73 (84) 97 07/06/20 01:00 22 111/66 Mechanical Ventilator 80 07/06/20 01:00 20 Mechanical Ventilator 80 07/06/20 00:30 93 20 104/63 (77) 98 07/06/20 00:00 86 07/06/20 00:00 Mechanical Ventilator Mechanical Ventilator 07/06/20 00:00 20 104/69 Mechanical Ventilator 80 07/06/20 00:00 20 Mechanical Ventilator 80 07/06/20 00:00 98.6 92 20 107/66 (80) 97 07/06/20 00:00 80 07/05/20 23:30 89 20 105/63 (77) 97 07/05/20 23:15 92 19 106/68 (81) 97 07/05/20 23:07 89 20 70 07/05/20 23:00 20 106/68 Mechanical Ventilator 80 07/05/20 23:00 20 Mechanical Ventilator 80 07/05/20 23:00 89 19 102/67 (79) 100 07/05/20 22:45 89 17 101/62 (75) 100 07/05/20 22:30 89 19 103/64 (77) 100 07/05/20 22:15 98 26 105/70 (82) 97 07/05/20 22:00 19 105/70 Mechanical Ventilator 80 07/05/20 22:00 20 Mechanical Ventilator 80 07/05/20 22:00 85 19 101/65 (77) 100 07/05/20 21:00 86 20 99/67 (78) 100 07/05/20 21:00 20 100/64 Mechanical Ventilator 80 07/05/20 21:00 20 Mechanical Ventilator 80 07/05/20 20:00 Mechanical Ventilator Mechanical Ventilator 07/05/20 20:00 21 101/67 Mechanical Ventilator 80 07/05/20 20:00 20 Mechanical Ventilator 80 07/05/20 20:00 80 07/05/20 20:00 87 07/05/20 20:00 98.6 85 20 100/65 (77) 100 07/05/20 19:12 91 20 80 07/05/20 19:06 87 16 104/69 (81) 100 07/05/20 19:00 18 104/64 Mechanical Ventilator 80 07/05/20 19:00 18 Mechanical Ventilator 80 07/05/20 18:00 30 114/72 Mechanical Ventilator 80 07/05/20 18:00 30 Mechanical Ventilator 80 07/05/20 18:00 98 26 115/79 (91) 100 07/05/20 17:00 85 24 106/71 (83) 100 07/05/20 17:00 24 106/71 Mechanical Ventilator 80 07/05/20 17:00 23 Mechanical Ventilator 80 07/05/20 16:00 100.4 83 17 99/63 (75) 100 07/05/20 16:00 Mechanical Ventilator Mechanical Ventilator 07/05/20 16:00 18 99/63 Mechanical Ventilator 80 07/05/20 16:00 18 Mechanical Ventilator 80 07/05/20 16:00 80 07/05/20 16:00 80 07/05/20 15:26 84 16 80 07/05/20 15:00 87 23 106/63 (77) 100 07/05/20 15:00 19 106/63 Mechanical Ventilator 80 07/05/20 15:00 19 Mechanical Ventilator 80 07/05/20 14:21 20 Mechanical Ventilator 80 07/05/20 14:00 20 104/70 Mechanical Ventilator 80 07/05/20 14:00 20 Mechanical Ventilator 80 07/05/20 14:00 97 23 104/76 (85) 100 07/05/20 13:15 100.5 07/05/20 13:03 20 109/66 Mechanical Ventilator 80 07/05/20 13:00 97 20 109/74 (86) 100 07/05/20 13:00 20 Mechanical Ventilator 80 I&O Intake and Output 07/05/20 07/06/20 19:00 07:00 Intake Total 1874 ml 1754 ml Output Total 2605 ml 1490 ml Balance -731 ml 264 ml Free Water 300 ml 110 ml IV Total 814 ml 924 ml Tube Feeding 640 ml 720 ml Other 120 ml Output Urine Total 2405 ml 1390 ml Stool Total 200 ml 100 ml Dressing: saturated Cardiovascular: RSR Respiratory: decreased breath sounds Abdomen: soft, non-tender, decreased bowel sounds Extremities: edema, no cyanosis Laboratory Tests Test 07/06/20 03:30 07/06/20 06:00 07/06/20 07:35 White Blood Count 7.0 K/UL (4.8-10.8) Red Blood Count 2.52 M/UL (4.20-5.40) L Hemoglobin 7.3 G/DL (12.0-16.0) L Hematocrit 24.1 % (37.0-47.0) L Mean Corpuscular Volume 96 FL (80-99) Mean Corpuscular Hemoglobin 29.1 PG (27.0-31.0) Mean Corpuscular Hemoglobin Concent 30.3 G/DL (32.0-36.0) L Red Cell Distribution Width 19.2 % (11.6-14.8) H Platelet Count 204 K/UL (150-450) Mean Platelet Volume 7.5 FL (6.5-10.1) Neutrophils (%) (Auto) % (45.0-75.0) Lymphocytes (%) (Auto) % (20.0-45.0) Monocytes (%) (Auto) % (1.0-10.0) Eosinophils (%) (Auto) % (0.0-3.0) Basophils (%) (Auto) % (0.0-2.0) Differential Total Cells Counted 100 Neutrophils % (Manual) 53 % (45-75) Lymphocytes % (Manual) 36 % (20-45) Monocytes % (Manual) 7 % (1-10) Eosinophils % (Manual) 4 % (0-3) H Basophils % (Manual) 0 % (0-2) Band Neutrophils 0 % (0-8) Platelet Estimate Adequate Platelet Morphology Normal Hypochromasia 1+ Anisocytosis 2+ Sodium Level 139 MMOL/L (136-145) Potassium Level 2.9 MMOL/L (3.5-5.1) L Chloride Level 93 MMOL/L (98-107) L Carbon Dioxide Level 43 MMOL/L (21-32) *H Anion Gap 4 mmol/L (5-15) L Blood Urea Nitrogen 14 mg/dL (7-18) Creatinine 0.4 MG/DL (0.55-1.30) L Estimat Glomerular Filtration Rate > 60 mL/min (>60) Glucose Level 136 MG/DL (74-106) H Calcium Level 9.2 MG/DL (8.5-10.1) Phosphorus Level 2.7 MG/DL (2.5-4.9) Magnesium Level 1.8 MG/DL (1.8-2.4) Total Bilirubin 1.6 MG/DL (0.2-1.0) H Direct Bilirubin 0.3 MG/DL (0.0-0.3) Aspartate Amino Transf (AST/SGOT) 31 U/L (15-37) Alanine Aminotransferase (ALT/SGPT) 23 U/L (12-78) Alkaline Phosphatase 72 U/L (46-116) Total Protein 6.9 G/DL (6.4-8.2) Albumin 2.2 G/DL (3.4-5.0) L Globulin 4.7 g/dL Albumin/Globulin Ratio 0.5 (1.0-2.7) L Stool Occult Blood Pending Arterial Blood pH 7.478 (7.350-7.450) Arterial Blood Partial Pressure CO2 57.1 mmHg (35.0-45.0) *H Arterial Blood Partial Pressure O2 88.5 mmHg (75.0-100.0) Arterial Blood HCO3 41.4 mmol/L (22.0-26.0) *H Arterial Blood Oxygen Saturation 96.1 % (95-100) Arterial Blood Base Excess 16.0 (-2-2) *H Jeremiah Test Positive Plan Problems: (1) Respiratory distress (2) Respiratory failure Assessment & Plan: 50-year-old female Covid positive respiratory insufficiency intubated on ventilatory support declining. Leukocytosis increase oxygen requirement. Vent settings per pulmonology reviewed identified and agree. Unfortunately further surgical invention at this time is not appropriate as patient is not a candidate and her current condition. Prognosis overall guarded. Tracheostomy can be considered in the future if recovering or shows improvement and requires unable to be weaned from ventilator support. Currently okay for nutritional optimization with NG tube. Will need significant mon itoring for decubitus formation given patient's size and condition. Okay for air mattress tolerated. Turn every 2 hours as tolerated. Patient is otherwise critically ill and blood pressure labile. Will need to monitor closely.Bilateral infiltrates are again demonstrated. Stable tube and line positions. will need trach will need to wean vent first (3) Hypoxia (4) Pneumonia due to COVID-19 virus Assessment & Plan: ++ as per pulm and ID (5) Diabetes mellitus out of control Assessment & Plan: DAILY ESTIMATED NEEDS: Needs based on Critical care, obesity 11-14kcal/kg actual body wt (140kg) kcals/kg 3133-7793 total kcals 1.5-2.0g prot/kg IBW (64.5kg) g protein/kg 96-129 g total protein 25-30ml/kg abw (83kg) mL/kg 2798-6980 total fluid mLs NUTRITION DIAGNOSIS: Swallowing difficulty R/T respiratory failure as evidenced by pt orally intubated and sedated, on OGT feeds. CURRENT TF: Vital 1.2 goal of 60ml/hr ENTERAL NUTRITION RECOMMENDATIONS: Vital AF 1.2 @ 60ml/hr x 24 hrs to provide 1440ml, 1728kcal, 108g prot, 1168ml free water * Maintain current critical care and carb controlled TF formula of Vital AF * TF @ goal meeds 100% est kcal/prot needs * HOB over 30 degrees/ water flush per MD TF may be lowered to 55ml/hr for improved BG control while maintaining Kcal and pro needs. ADDITIONAL RECOMMENDATIONS: * Calibrated bedscale wt * Monitor Propofol rate, need for TF adjustment-> now off * Monitor BGs closely : now improved, on novolog q 6rs + NISS * Monitor lytes- K elevated, monitor need for TF change * Rec bowel regimen- now w/ rectal tube . Az Devine Jul 06, 2020 12:35
--- NOTE | 2020-07-06 12:40 | NUR ---
NURSE NOTES: Pt. arousable. No s/sx of distress. No grimacing noted. Oral care rendered.
--- NOTE | 2020-07-06 14:30 | NUR ---
NURSE NOTES: Pt. remain stable. HOB elevated at all times. No n/v noted. NG feeding tolerating well.
--- NOTE | 2020-07-06 15:33 | General Progress Note ---
Subjective ROS Limited/Unobtainable: Yes Allergies: Coded Allergies: No Known Allergies (Unverified , 05/28/20) Subjective events noted interval notes reviewed glucose values are stable Item Value Date Time Bedside Blood Glucose 131 mg/dl H 07/06/20 1200 Bedside Blood Glucose 161 mg/dl H 07/06/20 0610 Bedside Blood Glucose 139 mg/dl H 07/06/20 0000 Bedside Blood Glucose 119 mg/dl 07/05/20 1800 Bedside Blood Glucose 148 mg/dl H 07/05/20 1200 Objective Last 24 Hour Vital Signs Date Time Temp Pulse Resp B/P (MAP) Pulse Ox O2 Delivery O2 Flow Rate FiO2 07/06/20 14:00 96 24 95/51 (66) 97 07/06/20 13:00 98 25 98/51 (67) 96 07/06/20 12:00 Mechanical Ventilator Mechanical Ventilator 07/06/20 12:00 99.8 95 24 100/55 (70) 100 07/06/20 12:00 103 07/06/20 12:00 80 07/06/20 11:00 90 24 89/48 (62) 100 07/06/20 10:00 93 22 89/51 (64) 100 07/06/20 09:00 95 24 97/53 (68) 100 07/06/20 08:00 Mechanical Ventilator Mechanical Ventilator 07/06/20 08:00 80 07/06/20 08:00 96 07/06/20 08:00 100.0 97 23 96/51 (66) 100 07/06/20 07:59 22 92/60 Endotracheal Tube 80 07/06/20 07:27 21 100/55 Mechanical Ventilator 70 07/06/20 07:26 95 23 70 07/06/20 07:00 97 25 98/55 (69) 99 07/06/20 07:00 21 111/60 Mechanical Ventilator 70 07/06/20 07:00 21 Mechanical Ventilator 70 07/06/20 06:30 99 18 07/06/20 06:00 99 25 98/48 (65) 99 07/06/20 06:00 21 100/60 Mechanical Ventilator 70 07/06/20 06:00 21 Mechanical Ventilator 70 07/06/20 05:30 100 23 101/50 (67) 97 07/06/20 05:00 101 25 97/53 (68) 96 07/06/20 05:00 24 101/50 Mechanical Ventilator 70 07/06/20 05:00 21 Mechanical Ventilator 70 07/06/20 04:30 103 24 99/54 (69) 95 07/06/20 04:00 101 24 99/54 (69) 99 07/06/20 04:00 20 99/54 Mechanical Ventilator 80 07/06/20 04:00 21 Mechanical Ventilator 80 07/06/20 04:00 80 07/06/20 04:00 85 07/06/20 04:00 Mechanical Ventilator Mechanical Ventilator 07/06/20 03:58 99.0 07/06/20 03:44 98 21 70 07/06/20 03:30 96 21 103/52 (69) 96 07/06/20 03:00 96 21 99/57 (71) 99 07/06/20 03:00 23 103/52 Mechanical Ventilator 80 07/06/20 03:00 20 Mechanical Ventilator 80 07/06/20 02:30 89 20 91/40 (57) 99 07/06/20 02:00 95 20 100/49 (66) 95 07/06/20 02:00 20 91/40 Mechanical Ventilator 80 07/06/20 02:00 20 Mechanical Ventilator 80 07/06/20 01:52 100 22 91/50 (64) 95 07/06/20 01:30 100 21 104/64 (77) 95 07/06/20 01:00 98 20 105/73 (84) 97 07/06/20 01:00 22 111/66 Mechanical Ventilator 80 07/06/20 01:00 20 Mechanical Ventilator 80 07/06/20 00:30 93 20 104/63 (77) 98 07/06/20 00:00 86 07/06/20 00:00 Mechanical Ventilator Mechanical Ventilator 07/06/20 00:00 20 104/69 Mechanical Ventilator 80 07/06/20 00:00 20 Mechanical Ventilator 80 07/06/20 00:00 98.6 92 20 107/66 (80) 97 07/06/20 00:00 80 07/05/20 23:30 89 20 105/63 (77) 97 07/05/20 23:15 92 19 106/68 (81) 97 07/05/20 23:07 89 20 70 07/05/20 23:00 20 106/68 Mechanical Ventilator 80 07/05/20 23:00 20 Mechanical Ventilator 80 07/05/20 23:00 89 19 102/67 (79) 100 07/05/20 22:45 89 17 101/62 (75) 100 07/05/20 22:30 89 19 103/64 (77) 100 07/05/20 22:15 98 26 105/70 (82) 97 07/05/20 22:00 19 105/70 Mechanical Ventilator 80 07/05/20 22:00 20 Mechanical Ventilator 80 07/05/20 22:00 85 19 101/65 (77) 100 07/05/20 21:00 86 20 99/67 (78) 100 07/05/20 21:00 20 100/64 Mechanical Ventilator 80 07/05/20 21:00 20 Mechanical Ventilator 80 07/05/20 20:00 Mechanical Ventilator Mechanical Ventilator 07/05/20 20:00 21 101/67 Mechanical Ventilator 80 07/05/20 20:00 20 Mechanical Ventilator 80 07/05/20 20:00 80 07/05/20 20:00 87 07/05/20 20:00 98.6 85 20 100/65 (77) 100 07/05/20 19:12 91 20 80 07/05/20 19:06 87 16 104/69 (81) 100 07/05/20 19:00 18 104/64 Mechanical Ventilator 80 07/05/20 19:00 18 Mechanical Ventilator 80 07/05/20 18:00 30 114/72 Mechanical Ventilator 80 07/05/20 18:00 30 Mechanical Ventilator 80 07/05/20 18:00 98 26 115/79 (91) 100 07/05/20 17:00 85 24 106/71 (83) 100 07/05/20 17:00 24 106/71 Mechanical Ventilator 80 07/05/20 17:00 23 Mechanical Ventilator 80 07/05/20 16:00 100.4 83 17 99/63 (75) 100 07/05/20 16:00 Mechanical Ventilator Mechanical Ventilator 07/05/20 16:00 18 99/63 Mechanical Ventilator 80 07/05/20 16:00 18 Mechanical Ventilator 80 07/05/20 16:00 80 07/05/20 16:00 80 Intake and Output 07/05/20 07/06/20 19:00 07:00 Intake Total 1874 ml 1754 ml Output Total 2605 ml 1490 ml Balance -731 ml 264 ml Free Water 300 ml 110 ml IV Total 814 ml 924 ml Tube Feeding 640 ml 720 ml Other 120 ml Output Urine Total 2405 ml 1390 ml Stool Total 200 ml 100 ml Laboratory Tests 07/06/20 03:30: White Blood Count 7.0, Red Blood Count 2.52L, Hemoglobin 7.3L, Hematocrit 24.1L, Mean Corpuscular Volume 96, Mean Corpuscular Hemoglobin 29.1, Mean Corpuscular Hemoglobin Concent 30.3L, Red Cell Distribution Width 19.2H, Platelet Count 204, Mean Platelet Volume 7.5, Neutrophils (%) (Auto) , Lymphocytes (%) (Auto) , Monocytes (%) (Auto) , Eosinophils (%) (Auto) , Basophils (%) (Auto) , Differential Total Cells Counted 100, Neutrophils % (Manual) 53, Lymphocytes % (Manual) 36, Monocytes % (Manual) 7, Eosinophils % (Manual) 4H, Basophils % (Manual) 0, Band Neutrophils 0, Platelet Estimate Adequate, Platelet Morphology Normal, Hypochromasia 1+, Anisocytosis 2+, Sodium Level 139, Potassium Level 2.9L, Chloride Level 93L, Carbon Dioxide Level 43*H, Anion Gap 4L, Blood Urea Nitrogen 14, Creatinine 0.4L, Estimat Glomerular Filtration Rate > 60, Glucose Level 136H, Calcium Level 9.2, Phosphorus Level 2.7, Magnesium Level 1.8, Total Bilirubin 1.6H, Direct Bilirubin 0.3, Aspartate Amino Transf (AST/SGOT) 31, Alanine Aminotransferase (ALT/SGPT) 23, Alkaline Phosphatase 72, Total Protein 6.9, Albumin 2.2L, Globulin 4.7, Albumin/Globulin Ratio 0.5L 07/06/20 06:00: Stool Occult Blood [Pending] 07/06/20 07:35: Arterial Blood pH 7.478H, Arterial Blood Partial Pressure CO2 57.1*H, Arterial Blood Partial Pressure O2 88.5, Arterial Blood HCO3 41.4*H, Arterial Blood Oxygen Saturation 96.1, Arterial Blood Base Excess 16.0*H, Jeremiah Test Positive Height (Feet): 5 Height (Inches): 6.00 Weight (Pounds): 239 Objective Current Medications Medications (Trade) Dose Ordered Sig/Zelda Route PRN Reason Start Time Stop Time Status Last Admin Dose Admin Acetaminophen (Tylenol) 650 mg Q4H PRN NG Temp >100.5 06/29/20 10:15 07/29/20 10:14 07/05/20 12:45 Acetaminophen (Tylenol) 650 mg Q6H PRN NG Mild Pain (Pain Scale 1-3) 06/29/20 10:15 07/29/20 10:14 Chlorhexidine Gluconate (Inna-Hex 2%) 1 applic DAILY@2000 TOPIC 05/30/20 20:00 08/28/20 19:59 07/05/20 20:25 Dextrose (Dextrose 50%) 25 ml Q30M PRN IV Hypoglycemia 06/05/20 10:45 09/03/20 10:44 Dextrose (Dextrose 50%) 50 ml Q30M PRN IV Hypoglycemia 06/05/20 10:45 09/03/20 10:44 Docusate Sodium (Colace) 100 mg Q12HR GT 06/07/20 21:00 07/07/20 20:59 07/06/20 08:43 Enoxaparin Sodium (Lovenox) 40 mg DAILY SUBQ 05/30/20 10:00 08/28/20 09:59 07/06/20 08:43 Fentanyl Citrate 250 ml @ 0 mls/hr Q24H PRN IV SEDATION 07/05/20 12:59 07/07/20 12:58 07/06/20 07:27 Furosemide (Lasix) 40 mg DAILY IV 06/22/20 09:00 07/22/20 08:59 07/06/20 08:43 Insulin Aspart (NovoLOG) EVERY 6 HOURS SUBQ 06/07/20 00:00 09/03/20 11:59 07/06/20 06:10 Lidocaine HCl (Xylocaine 1% 30ml) 30 ml NOW PRN INJ Radiology Procedure 07/04/20 10:45 07/07/20 10:44 Midazolam HCl 200 ml @ 0 mls/hr Q24H PRN IV sedation 07/06/20 06:00 07/08/20 06:00 07/06/20 07:59 Midodrine (Pro-Amatine) 10 mg Q8HR GT 06/30/20 14:00 09/12/20 13:59 07/06/20 14:38 Polyethylene Glycol (Miralax) 17 gm BEDTIME GT 06/07/20 21:00 07/07/20 20:59 07/05/20 20:50 Sodium Bicarbonate (Sodium Bicarbonate 4%) 1 ml NOW PRN IV Radiology Procedure 07/04/20 10:45 07/07/20 10:44 Vitamin D (Vitamin D) 5,000 unit DAILY GT 06/28/20 09:00 07/28/20 08:59 07/06/20 08:44 Assessment/Plan Problem List: (1) Diabetes mellitus out of control ICD Codes: E11.65 - Type 2 diabetes mellitus with hyperglycemia SNOMED: 49848689, 998131631 (2) Pneumonia due to COVID-19 virus ICD Codes: U07.1 - COVID-19; J12.82 - Pneumonia due to coronavirus disease 2019 SNOMED: 321130990794964649 (3) Respiratory distress ICD Codes: R06.03 - Acute respiratory distress; J12.82 - Pneumonia due to coronavirus disease 2019 SNOMED: 990536687 Status: unchanged Assessment/Plan: no need for basal insulin continue Novolog sliding scale every 6 hours Huber Adame MD Jul 06, 2020 15:33
--- NOTE | 2020-07-06 16:08 | NUR ---
NURSE NOTES: Sponge bath given. Suctioned tolerated well. O2 sat at 97-98%.
--- NOTE | 2020-07-06 19:13 | NUR ---
NURSE HAND-OFF REPORT: Latest Vital Signs: Temperature 98.2 , Pulse 102 , B/P 87 /55 , Respiratory Rate 25 , O2 SAT 96 , Endotracheal Tube, O2 Flow Rate . Vital Sign Comment: wnl EKG Rhythm: Sinus Rhythm Rhythm change?: Jesus TOLLIVER Notified?: Babs EDWARDS MD Response: Latest Meyers Fall Score: 70 Fall Risk: High Risk Safety Measures: Call light Within Reach, Bed Alarm Zone 1, Side Rails Side Rails x2, Bed position Low and Locked. Fall Precautions: Yellow Socks Report given to Jacob ELLINGTON.
--- NOTE | 2020-07-06 19:30 | NUR ---
report received from day rn. Pt trach and sedated. Fio2 60% upon assessment. Pt febrile. Cooling blanket applied. Sedation infusing, pt responds to light pain and suction. Bed in lowest position, call light within reach, side rails x3, will continue to monitor.
[2020-07-06] MEDS: Miralax 17gm pkt GT SCH (20:04)
[2020-07-06] MEDS: Dyna-Hex 2% Top Sol 2oz TOPIC SCH (20:04)
[2020-07-07] VITALS (33 sets, daily range): BP systolic 79–129; BP diastolic 46–92
[2020-07-07] MEDS: Versed 100mg/NS 200ml 200 ML IV PRN ×2 (00:15→16:25)
--- NOTE | 2020-07-07 04:00 | NUR ---
providing hygiene care. PICC line got dislodged during turning. That was the pts only iv access. Urgently attempted to place new IV. R hand 22 g inserted. During this process, pt was not receiving sedation. Pt fighting vent, emesis present. Appears to be TF. Ng tube dislodged during emesis episode. Attempted to place ng tube back in, blood secretions and pt fighting us to insert. TF held, no GI access. Sedation increased once PIV inserted. Bed in lowest position, call light within reach, side rails x3, will continue to monitor
[2020-07-07] MEDS: NovoLOG Insulin Flexpen SUBQ SCH ×4 (06:00→18:00)
[2020-07-07] MEDS: Midodrine 10mg tab GT SCH ×3 (06:00→20:28)
[2020-07-07] MEDS: fentaNYL 2500mcg/NS 250ml 250 ML IV PRN (06:42)
--- NOTE | 2020-07-07 07:09 | NUR ---
NURSE NOTES: Received report from Jacob ELLINGTON.
--- NOTE | 2020-07-07 07:58 | Pulmonology Progress Note ---
Subjective ROS Limited/Unobtainable: Yes Interval Events: S/p tracheostomy 07/04/20 Constitutional: Reports: fever, other - T=100 HEENT: Repors: no symptoms Respiratory: Reports: no symptoms Cardiovascular: Reports: no symptoms Gastrointestinal/Abdominal: Reports: no symptoms Genitourinary: Reports: no symptoms Allergies: Coded Allergies: No Known Allergies (Unverified , 05/28/20) All Systems: reviewed and negative except above Objective Last 24 Hour Vital Signs Date Time Temp Pulse Resp B/P (MAP) Pulse Ox O2 Delivery O2 Flow Rate FiO2 07/07/20 07:00 91 0 110/67 (81) 100 07/07/20 06:45 92 0 100 07/07/20 06:42 22 120/78 Mechanical Ventilator 07/07/20 06:30 100 29 120/78 (92) 99 07/07/20 06:30 96 22 07/07/20 06:15 102 30 100 07/07/20 06:00 104 30 100 07/07/20 06:00 95 07/07/20 06:00 100 07/07/20 06:00 104 30 100 07/07/20 05:30 109 24 111/92 (98) 88 07/07/20 05:00 102 28 96/66 (76) 97 07/07/20 04:47 95 19 98/69 (79) 96 07/07/20 04:44 94 11 79/58 (65) 96 07/07/20 04:43 98 15 84/50 (61) 96 07/07/20 04:39 97 18 80/59 (66) 94 07/07/20 04:00 100 07/07/20 04:00 95 07/07/20 04:00 97 21 106/49 (68) 93 07/07/20 04:00 100.2 95 07/07/20 04:00 Mechanical Ventilator Mechanical Ventilator 07/07/20 03:24 92 19 55 07/07/20 03:00 92 21 93/62 (72) 97 07/07/20 02:30 92 18 100/46 (64) 94 07/07/20 02:00 92 22 92/60 (71) 95 07/07/20 01:30 98 27 96/61 (73) 87 07/07/20 01:00 100 23 96/59 (71) 93 07/07/20 00:15 18 91/59 Mechanical Ventilator 07/07/20 00:00 Mechanical Ventilator Mechanical Ventilator 07/07/20 00:00 95 07/07/20 00:00 100.2 95 20 91/59 (70) 94 07/07/20 00:00 55 07/06/20 23:30 90 18 95/50 (65) 100 07/06/20 23:30 89 19 55 07/06/20 23:00 89 18 93/47 (62) 100 07/06/20 22:30 89 18 90/53 (65) 100 07/06/20 22:00 88 16 86/50 (62) 100 07/06/20 21:30 88 18 94/43 (60) 100 07/06/20 21:00 92 18 86/47 (60) 100 07/06/20 20:00 60 07/06/20 20:00 95 07/06/20 20:00 Mechanical Ventilator Mechanical Ventilator 07/06/20 20:00 101.2 98 20 86/49 (61) 95 07/06/20 19:20 102 23 60 07/06/20 19:00 102 25 87/55 (66) 96 07/06/20 18:00 96 25 98/53 (68) 97 07/06/20 18:00 25 98/53 Endotracheal Tube 80 07/06/20 18:00 25 98/53 Endotracheal Tube 80 07/06/20 17:00 94 22 98/57 (71) 95 07/06/20 17:00 22 98/57 Endotracheal Tube 80 07/06/20 17:00 22 98/57 Endotracheal Tube 80 07/06/20 16:00 Mechanical Ventilator Mechanical Ventilator 07/06/20 16:00 98.2 96 23 96/47 (63) 99 07/06/20 16:00 23 96/47 Endotracheal Tube 80 07/06/20 16:00 23 96/47 Endotracheal Tube 80 07/06/20 16:00 95 07/06/20 16:00 80 07/06/20 15:39 94 24 60 07/06/20 15:00 98 29 100/52 (68) 98 07/06/20 15:00 29 100/52 Endotracheal Tube 80 07/06/20 15:00 29 100/52 Endotracheal Tube 80 07/06/20 14:00 96 24 95/51 (66) 97 07/06/20 14:00 24 95/51 Endotracheal Tube 80 07/06/20 14:00 24 95/51 Endotracheal Tube 80 07/06/20 13:00 25 98/51 Endotracheal Tube 80 07/06/20 13:00 25 98/51 Endotracheal Tube 80 07/06/20 13:00 98 25 98/51 (67) 96 07/06/20 12:00 Mechanical Ventilator Mechanical Ventilator 07/06/20 12:00 99.8 95 24 100/55 (70) 100 07/06/20 12:00 103 07/06/20 12:00 24 100/55 Endotracheal Tube 80 07/06/20 12:00 24 100/55 Endotracheal Tube 80 07/06/20 12:00 80 07/06/20 11:26 97 27 70 07/06/20 11:00 24 89/48 Endotracheal Tube 80 07/06/20 11:00 24 89/48 Endotracheal Tube 80 07/06/20 11:00 90 24 89/48 (62) 100 07/06/20 10:00 22 89/51 Endotracheal Tube 80 07/06/20 10:00 22 89/51 Endotracheal Tube 80 07/06/20 10:00 93 22 89/51 (64) 100 07/06/20 09:00 24 97/53 Endotracheal Tube 80 07/06/20 09:00 24 97/53 Endotracheal Tube 80 07/06/20 09:00 95 24 97/53 (68) 100 07/06/20 08:00 Mechanical Ventilator Mechanical Ventilator 07/06/20 08:00 80 07/06/20 08:00 96 07/06/20 08:00 100.0 97 23 96/51 (66) 100 07/06/20 08:00 23 96/51 Endotracheal Tube 80 07/06/20 08:00 23 96/51 Endotracheal Tube 80 07/06/20 07:59 22 92/60 Endotracheal Tube 80 Intake and Output 07/06/20 07/07/20 19:00 07:00 Intake Total 1394 ml 880.0 ml Output Total 500 ml 685 ml Balance 894 ml 195.0 ml Free Water 300 ml IV Total 374 ml 340.0 ml Tube Feeding 720 ml 540 ml Output Urine Total 450 ml 665 ml Stool Total 50 ml 20 ml General Appearance: no acute distress HEENT: normocephalic, status post trach Respiratory: chest wall non-tender Cardiovascular: normal peripheral pulses Abdomen: normal bowel sounds Current Medications Medications (Trade) Dose Ordered Sig/Zelda Route PRN Reason Start Time Stop Time Status Last Admin Dose Admin Acetaminophen (Tylenol) 650 mg Q4H PRN NG Temp >100.5 06/29/20 10:15 07/29/20 10:14 07/05/20 12:45 Acetaminophen (Tylenol) 650 mg Q6H PRN NG Mild Pain (Pain Scale 1-3) 06/29/20 10:15 07/29/20 10:14 Chlorhexidine Gluconate (Inna-Hex 2%) 1 applic DAILY@2000 TOPIC 05/30/20 20:00 08/28/20 19:59 07/06/20 20:04 Dextrose (Dextrose 50%) 25 ml Q30M PRN IV Hypoglycemia 06/05/20 10:45 09/03/20 10:44 Dextrose (Dextrose 50%) 50 ml Q30M PRN IV Hypoglycemia 06/05/20 10:45 09/03/20 10:44 Docusate Sodium (Colace) 100 mg Q12HR GT 06/07/20 21:00 07/07/20 20:59 07/06/20 20:04 Enoxaparin Sodium (Lovenox) 40 mg DAILY SUBQ 05/30/20 10:00 08/28/20 09:59 07/06/20 08:43 Fentanyl Citrate 250 ml @ 0 mls/hr Q24H PRN IV SEDATION 07/05/20 12:59 07/07/20 12:58 07/07/20 06:42 Furosemide (Lasix) 40 mg DAILY IV 06/22/20 09:00 07/22/20 08:59 07/06/20 08:43 Insulin Aspart (NovoLOG) EVERY 6 HOURS SUBQ 06/07/20 00:00 09/03/20 11:59 07/06/20 06:10 Lidocaine HCl (Xylocaine 1% 30ml) 30 ml NOW PRN INJ Radiology Procedure 07/04/20 10:45 07/07/20 10:44 Midazolam HCl 200 ml @ 0 mls/hr Q24H PRN IV sedation 07/06/20 06:00 07/08/20 06:00 07/07/20 00:15 Midodrine (Pro-Amatine) 10 mg Q8HR GT 06/30/20 14:00 09/12/20 13:59 07/06/20 20:04 Polyethylene Glycol (Miralax) 17 gm BEDTIME GT 06/07/20 21:00 07/07/20 20:59 07/06/20 20:04 Sodium Bicarbonate (Sodium Bicarbonate 4%) 1 ml NOW PRN IV Radiology Procedure 07/04/20 10:45 07/07/20 10:44 Vitamin D (Vitamin D) 5,000 unit DAILY GT 06/28/20 09:00 07/28/20 08:59 07/06/20 08:44 Assessment/Plan Assessment/Plan 1. COVID-19 pneumonia -Intubated 05/28/20 - We will continue broad-spectrum antibiotics. -s/p solumedrol, Rocephin -Continue PEEP 6 ->7 - Peak airway pressures high; 42 - FiO2 100% -> 90 ->80->60 ->40 ->80 ->100 ->80 -70; now back up to 100% -will continue OGT feeding -Continue sedation; Need to keep patient completely sedated. 2. Hyponatremia -Per primary MD 3. Elevated inflammatory markers - has high D dimer; Lovenox re-started 4. Decrease PEEP Continue weaning efforts S/p trach Discussed with surgery Off IV fluids Javier Nava MD Jul 07, 2020 07:58
--- NOTE | 2020-07-07 08:33 | NUR ---
NURSE NOTES: Pt. in bed, sleeping. Noted occasional coughing. On mech. vent dependent with setting AC15/VT600/Fi O2 of 80%/P7. No grimacing noted. IV line at right hand #22g. in placed. Rectal tube in placed patent/intact draining brownish liquid output. F/C in placed patent/intact draining jordyn colored urine with sediments noted. Bed in low position, locked. Call light within reach. Will cont. to monitor.
--- NOTE | 2020-07-07 08:37 | NUR ---
NURSE NOTES: Seen by Dr. Condon and order for CBC if Hgb is less than 7.5 give 1 PRBC. Will cont. to monitor.
[2020-07-07] MEDS: Vitamin D 1000 units Tab GT SCH (09:00)
[2020-07-07] MEDS: Docusate 100mg/10ml Liq GT SCH (09:00)
[2020-07-07] MEDS: Enoxaparin 40mg Inj SUBQ SCH (09:12)
[2020-07-07 09:19] LABS: BASOPHILS % (AUTO) 1.3 % (0.0-2.0); EOSINOPHILS % (AUTO) 1.5 % (0.0-3.0); HEMATOCRIT 27.5 % (37.0-47.0); HEMOGLOBIN 8.5 G/DL (12.0-16.0); LYMPHOCYTES % (AUTO) 22.8 % (20.0-45.0); MEAN CORPUSCULAR VOLUME 95 FL (80-99); MONOCYTES % (AUTO) 7.5 % (1.0-10.0); NEUTROPHILS % (AUTO) 66.9 % (45.0-75.0); PLATELET COUNT 253 K/UL (150-450); RED CELL DISTRIBUTION WIDTH 18.4 % (11.6-14.8); WHITE BLOOD COUNT 11.9 K/UL (4.8-10.8)
--- NOTE | 2020-07-07 09:20 | NUR ---
NURSE NOTES: Called and left a message to Dr. Del Cid regarding pt. had no GI MD on board. Pt. no NGT at present due to last night vomiting episode (and got dislodge) and noted pt. still gagging and unable to re-insert a replacement. Awaiting for response.
--- NOTE | 2020-07-07 09:47 | Hematology/Onc Progress Note ---
Assessment/Plan Assessment/Plan # Deep vein thrombosis of the right calf --> given onoing anemia and low plts --> consider ivc if bleeding-->if counts stable 07/08 consider placement --> once stable, for radiology and ivc filter placement # Thrombocytopenia is due to infection/underlying covid19+++ --> ABX ceftriaxone -->zosyn-->off --> on steriods likely cause of initial wbc --> per pulm --> plt 107->156-->192-->205 --> smear reviewed # Anemia due to chronic disease --> hgb goal is >7 --> transfuse prn --> ferritin is >1000 --> hold off on iron --> 10-->9.8->9-->8-->8.2-->9.4-->8.1-->9.9-->8.7-->9.7-->9.5-->8.1-->8.8->8.5 # Elevated ddimer due to covid19++ --> duplex legs is negative --> underlying covid rx # Hypoxia -> due to covid19 # Hypoxemia --> rx same as above # Respiratory failure --> on vent/trach --> per pulm # Pneumonia due to COVID-19 virus --> per pulm rx -> sp remdesivir # Diabetes mellitus out of control --> hgb a1c goal <7 # Poor prognosis # Dvt ppx lovenox sq Appreciate consultation and bowen RN Subjective Allergies: Coded Allergies: No Known Allergies (Unverified , 05/28/20) All Systems: reviewed and negative except above Subjective 06/10 nv, on vent, with ogt, on fentanyl and versed, plt stable 06/11 nv, vent adjusted is on ogt, meds reviewed 06/12 nv, vent, meds noted, labs noted, no bleeding, hgb 10.4 06/13 nv, is on vent, meds reviewed, no bleeding, cbc reviewed 06/14 nv, on vent, tachy, labs reviewed, gross hematuria, febrile overnight, abx 06/17 nv, on vent, labs noted, no major changes, feeling better overnight 06/18 nv, meds reviewed, labs noted, no major events, hgb 8.6 06/19 nv, remains intubated, with fluids, labs reviewed, meds noted 06/20 nv, intubated remains on restraints, meds noted as well, as labs 06/21 nv, remains on vent, on restraints, meds reviewed, labs noted 06/22: covering Dr. Del Cid no acute events 06/23 sedated, on vent, nv, intubated, meds reviewed, versed 06/24 nv, on vent, no night sweats, no bleeding, remains in icu 06/25 nv, on vent, icu, meds noted, no bleeding, comfortable 06/26 nv, on versed, icu, weaning parameters, labs noted 06/27 nv, overnight fighting vent, as per pulm fentanyl on board 06/28 nv, on vent, labs reviewed, as per pulm, meds noted 06/30 nv, icu, labs pending, is on fentanyl, versed, no new changes 07/01 nv, icu, is on vent, labs pending, no new changes per rn 07/02 nv, icu is on vent, labs noted, hgb is stable 07/03 nv, icu, is on vent, potential trrach when stable, cbc reviewed 07/04 icu, nv, labs are noted, stable for trach today dw Rn Dl 07/05 icu, nv, on vent, with ng and picc in place, labs noted, s/p trach 07/07 icu, nv, on tv, no bleeding, labs noted, meds reviewed Objective Objective Current Medications Medications (Trade) Dose Ordered Sig/Zelda Route PRN Reason Start Time Stop Time Status Last Admin Dose Admin Acetaminophen (Tylenol) 650 mg Q4H PRN NG Temp >100.5 06/29/20 10:15 07/29/20 10:14 07/05/20 12:45 Acetaminophen (Tylenol) 650 mg Q6H PRN NG Mild Pain (Pain Scale 1-3) 06/29/20 10:15 07/29/20 10:14 Chlorhexidine Gluconate (Inna-Hex 2%) 1 applic DAILY@1999 TOPIC 05/30/20 20:00 08/28/20 19:59 07/06/20 20:04 Dextrose (Dextrose 50%) 25 ml Q30M PRN IV Hypoglycemia 06/05/20 10:45 09/03/20 10:44 Dextrose (Dextrose 50%) 50 ml Q30M PRN IV Hypoglycemia 06/05/20 10:45 09/03/20 10:44 Docusate Sodium (Colace) 100 mg Q12HR GT 06/07/20 21:00 07/07/20 20:59 07/06/20 20:04 Enoxaparin Sodium (Lovenox) 40 mg DAILY SUBQ 05/30/20 10:00 08/28/20 09:59 07/07/20 09:12 Fentanyl Citrate 250 ml @ 0 mls/hr Q24H PRN IV SEDATION 07/05/20 12:59 07/07/20 12:58 07/07/20 06:42 Furosemide (Lasix) 40 mg DAILY IV 06/22/20 09:00 07/22/20 08:59 07/07/20 09:11 Insulin Aspart (NovoLOG) EVERY 6 HOURS SUBQ 06/07/20 00:00 09/03/20 11:59 07/06/20 06:10 Lidocaine HCl (Xylocaine 1% 30ml) 30 ml NOW PRN INJ Radiology Procedure 07/04/20 10:45 07/07/20 10:44 Midazolam HCl 200 ml @ 0 mls/hr Q24H PRN IV sedation 07/06/20 06:00 07/08/20 06:00 07/07/20 00:15 Midodrine (Pro-Amatine) 10 mg Q8HR GT 06/30/20 14:00 09/12/20 13:59 07/06/20 20:04 Polyethylene Glycol (Miralax) 17 gm BEDTIME GT 06/07/20 21:00 07/07/20 20:59 07/06/20 20:04 Sodium Bicarbonate (Sodium Bicarbonate 4%) 1 ml NOW PRN IV Radiology Procedure 07/04/20 10:45 07/07/20 10:44 Vitamin D (Vitamin D) 5,000 unit DAILY GT 06/28/20 09:00 07/28/20 08:59 07/06/20 08:44 Last 24 Hour Vital Signs Date Time Temp Pulse Resp B/P (MAP) Pulse Ox O2 Delivery O2 Flow Rate FiO2 07/07/20 08:00 Mechanical Ventilator Mechanical Ventilator 07/07/20 08:00 100.2 107 32 126/82 (97) 99 07/07/20 07:34 103 27 80 07/07/20 07:00 91 0 110/67 (81) 100 07/07/20 06:45 92 0 100 07/07/20 06:42 22 120/78 Mechanical Ventilator 07/07/20 06:30 100 29 120/78 (92) 99 07/07/20 06:30 96 22 07/07/20 06:15 102 30 100 07/07/20 06:00 104 30 100 07/07/20 06:00 95 07/07/20 06:00 100 07/07/20 06:00 104 30 100 07/07/20 05:30 109 24 111/92 (98) 88 07/07/20 05:00 102 28 96/66 (76) 97 07/07/20 04:47 95 19 98/69 (79) 96 07/07/20 04:44 94 11 79/58 (65) 96 07/07/20 04:43 98 15 84/50 (61) 96 07/07/20 04:39 97 18 80/59 (66) 94 07/07/20 04:00 100 07/07/20 04:00 95 07/07/20 04:00 97 21 106/49 (68) 93 07/07/20 04:00 100.2 95 07/07/20 04:00 Mechanical Ventilator Mechanical Ventilator 07/07/20 03:24 92 19 55 07/07/20 03:00 92 21 93/62 (72) 97 07/07/20 02:30 92 18 100/46 (64) 94 07/07/20 02:00 92 22 92/60 (71) 95 07/07/20 01:30 98 27 96/61 (73) 87 07/07/20 01:00 100 23 96/59 (71) 93 07/07/20 00:15 18 91/59 Mechanical Ventilator 07/07/20 00:00 Mechanical Ventilator Mechanical Ventilator 07/07/20 00:00 95 07/07/20 00:00 100.2 95 20 91/59 (70) 94 07/07/20 00:00 55 07/06/20 23:30 90 18 95/50 (65) 100 07/06/20 23:30 89 19 55 07/06/20 23:00 89 18 93/47 (62) 100 07/06/20 22:30 89 18 90/53 (65) 100 07/06/20 22:00 88 16 86/50 (62) 100 07/06/20 21:30 88 18 94/43 (60) 100 07/06/20 21:00 92 18 86/47 (60) 100 07/06/20 20:00 60 07/06/20 20:00 95 07/06/20 20:00 Mechanical Ventilator Mechanical Ventilator 07/06/20 20:00 101.2 98 20 86/49 (61) 95 07/06/20 19:20 102 23 60 07/06/20 19:00 102 25 87/55 (66) 96 07/06/20 18:00 96 25 98/53 (68) 97 07/06/20 18:00 25 98/53 Endotracheal Tube 80 07/06/20 18:00 25 98/53 Endotracheal Tube 80 07/06/20 17:00 94 22 98/57 (71) 95 07/06/20 17:00 22 98/57 Endotracheal Tube 80 07/06/20 17:00 22 98/57 Endotracheal Tube 80 07/06/20 16:00 Mechanical Ventilator Mechanical Ventilator 07/06/20 16:00 98.2 96 23 96/47 (63) 99 07/06/20 16:00 23 96/47 Endotracheal Tube 80 07/06/20 16:00 23 96/47 Endotracheal Tube 80 07/06/20 16:00 95 07/06/20 16:00 80 07/06/20 15:39 94 24 60 07/06/20 15:00 98 29 100/52 (68) 98 07/06/20 15:00 29 100/52 Endotracheal Tube 80 07/06/20 15:00 29 100/52 Endotracheal Tube 80 07/06/20 14:00 96 24 95/51 (66) 97 07/06/20 14:00 24 95/51 Endotracheal Tube 80 07/06/20 14:00 24 95/51 Endotracheal Tube 80 07/06/20 13:00 25 98/51 Endotracheal Tube 80 07/06/20 13:00 25 98/51 Endotracheal Tube 80 07/06/20 13:00 98 25 98/51 (67) 96 07/06/20 12:00 Mechanical Ventilator Mechanical Ventilator 07/06/20 12:00 99.8 95 24 100/55 (70) 100 07/06/20 12:00 103 07/06/20 12:00 24 100/55 Endotracheal Tube 80 07/06/20 12:00 24 100/55 Endotracheal Tube 80 07/06/20 12:00 80 07/06/20 11:26 97 27 70 07/06/20 11:00 24 89/48 Endotracheal Tube 80 07/06/20 11:00 24 89/48 Endotracheal Tube 80 07/06/20 11:00 90 24 89/48 (62) 100 07/06/20 10:00 22 89/51 Endotracheal Tube 80 07/06/20 10:00 22 89/51 Endotracheal Tube 80 07/06/20 10:00 93 22 89/51 (64) 100 07/06/20 09:00 24 97/53 Endotracheal Tube 80 07/06/20 09:00 24 97/53 Endotracheal Tube 80 07/06/20 09:00 95 24 97/53 (68) 100 07/06/20 08:00 Mechanical Ventilator Mechanical Ventilator 07/06/20 08:00 80 07/06/20 08:00 96 07/06/20 08:00 100.0 97 23 96/51 (66) 100 07/06/20 08:00 23 96/51 Endotracheal Tube 80 07/06/20 08:00 23 96/51 Endotracheal Tube 80 07/06/20 07:59 22 92/60 Endotracheal Tube 80 07/06/20 07:27 21 100/55 Mechanical Ventilator 70 07/06/20 07:26 95 23 70 07/06/20 07:00 97 25 98/55 (69) 99 07/06/20 07:00 21 111/60 Mechanical Ventilator 70 07/06/20 07:00 21 Mechanical Ventilator 70 07/06/20 06:30 99 18 07/06/20 06:00 99 25 98/48 (65) 99 07/06/20 06:00 21 100/60 Mechanical Ventilator 70 07/06/20 06:00 21 Mechanical Ventilator 70 07/06/20 05:30 100 23 101/50 (67) 97 07/06/20 05:00 101 25 97/53 (68) 96 07/06/20 05:00 24 101/50 Mechanical Ventilator 70 07/06/20 05:00 21 Mechanical Ventilator 70 07/06/20 04:30 103 24 99/54 (69) 95 07/06/20 04:00 101 24 99/54 (69) 99 07/06/20 04:00 20 99/54 Mechanical Ventilator 80 07/06/20 04:00 21 Mechanical Ventilator 80 07/06/20 04:00 80 07/06/20 04:00 85 07/06/20 04:00 Mechanical Ventilator Mechanical Ventilator 07/06/20 03:58 99.0 07/06/20 03:44 98 21 70 07/06/20 03:30 96 21 103/52 (69) 96 07/06/20 03:00 96 21 99/57 (71) 99 07/06/20 03:00 23 103/52 Mechanical Ventilator 80 07/06/20 03:00 20 Mechanical Ventilator 80 07/06/20 02:30 89 20 91/40 (57) 99 07/06/20 02:00 95 20 100/49 (66) 95 07/06/20 02:00 20 91/40 Mechanical Ventilator 80 07/06/20 02:00 20 Mechanical Ventilator 80 07/06/20 01:52 100 22 91/50 (64) 95 07/06/20 01:30 100 21 104/64 (77) 95 07/06/20 01:00 98 20 105/73 (84) 97 07/06/20 01:00 22 111/66 Mechanical Ventilator 80 07/06/20 01:00 20 Mechanical Ventilator 80 07/06/20 00:30 93 20 104/63 (77) 98 07/06/20 00:00 86 07/06/20 00:00 Mechanical Ventilator Mechanical Ventilator 07/06/20 00:00 20 104/69 Mechanical Ventilator 80 07/06/20 00:00 20 Mechanical Ventilator 80 07/06/20 00:00 98.6 92 20 107/66 (80) 97 07/06/20 00:00 80 07/05/20 23:30 89 20 105/63 (77) 97 07/05/20 23:15 92 19 106/68 (81) 97 07/05/20 23:07 89 20 70 07/05/20 23:00 20 106/68 Mechanical Ventilator 80 07/05/20 23:00 20 Mechanical Ventilator 80 07/05/20 23:00 89 19 102/67 (79) 100 07/05/20 22:45 89 17 101/62 (75) 100 07/05/20 22:30 89 19 103/64 (77) 100 07/05/20 22:15 98 26 105/70 (82) 97 07/05/20 22:00 19 105/70 Mechanical Ventilator 80 07/05/20 22:00 20 Mechanical Ventilator 80 07/05/20 22:00 85 19 101/65 (77) 100 07/05/20 21:00 86 20 99/67 (78) 100 07/05/20 21:00 20 100/64 Mechanical Ventilator 80 07/05/20 21:00 20 Mechanical Ventilator 80 07/05/20 20:00 Mechanical Ventilator Mechanical Ventilator 07/05/20 20:00 21 101/67 Mechanical Ventilator 80 07/05/20 20:00 20 Mechanical Ventilator 80 07/05/20 20:00 80 07/05/20 20:00 87 07/05/20 20:00 98.6 85 20 100/65 (77) 100 07/05/20 19:12 91 20 80 07/05/20 19:06 87 16 104/69 (81) 100 07/05/20 19:00 18 104/64 Mechanical Ventilator 80 07/05/20 19:00 18 Mechanical Ventilator 80 07/05/20 18:00 30 114/72 Mechanical Ventilator 80 07/05/20 18:00 30 Mechanical Ventilator 80 07/05/20 18:00 98 26 115/79 (91) 100 07/05/20 17:00 85 24 106/71 (83) 100 07/05/20 17:00 24 106/71 Mechanical Ventilator 80 07/05/20 17:00 23 Mechanical Ventilator 80 07/05/20 16:00 100.4 83 17 99/63 (75) 100 07/05/20 16:00 Mechanical Ventilator Mechanical Ventilator 07/05/20 16:00 18 99/63 Mechanical Ventilator 80 07/05/20 16:00 18 Mechanical Ventilator 80 07/05/20 16:00 80 07/05/20 16:00 80 07/05/20 15:26 84 16 80 07/05/20 15:00 87 23 106/63 (77) 100 07/05/20 15:00 19 106/63 Mechanical Ventilator 80 07/05/20 15:00 19 Mechanical Ventilator 80 07/05/20 14:21 20 Mechanical Ventilator 80 07/05/20 14:00 20 104/70 Mechanical Ventilator 80 07/05/20 14:00 20 Mechanical Ventilator 80 07/05/20 14:00 97 23 104/76 (85) 100 07/05/20 13:15 100.5 07/05/20 13:03 20 109/66 Mechanical Ventilator 80 07/05/20 13:00 97 20 109/74 (86) 100 07/05/20 13:00 20 Mechanical Ventilator 80 07/05/20 12:00 102 22 110/70 (83) 100 07/05/20 12:00 101.0 07/05/20 12:00 20 Mechanical Ventilator 80 07/05/20 12:00 80 07/05/20 12:00 98 07/05/20 12:00 Mechanical Ventilator Mechanical Ventilator 07/05/20 11:14 94 27 80 07/05/20 11:00 106 25 110/73 (85) 99 07/05/20 11:00 21 Mechanical Ventilator 80 07/05/20 10:00 112 28 105/75 (85) 99 07/05/20 10:00 28 Mechanical Ventilator 80 07/05/20 10:00 28 114/72 Mechanical Ventilator 80 Intake and Output 07/06/20 07/07/20 19:00 07:00 Intake Total 1394 ml 880.0 ml Output Total 500 ml 685 ml Balance 894 ml 195.0 ml Free Water 300 ml IV Total 374 ml 340.0 ml Tube Feeding 720 ml 540 ml Output Urine Total 450 ml 665 ml Stool Total 50 ml 20 ml Labs Test 07/05/20 03:30 07/06/20 03:30 07/06/20 06:00 07/06/20 07:35 White Blood Count 6.8 K/UL (4.8-10.8) 7.0 K/UL (4.8-10.8) Red Blood Count 2.80 M/UL (4.20-5.40) 2.52 M/UL (4.20-5.40) Hemoglobin 8.1 G/DL (12.0-16.0) 7.3 G/DL (12.0-16.0) Hematocrit 27.1 % (37.0-47.0) 24.1 % (37.0-47.0) Mean Corpuscular Volume 97 FL (80-99) 96 FL (80-99) Mean Corpuscular Hemoglobin 29.0 PG (27.0-31.0) 29.1 PG (27.0-31.0) Mean Corpuscular Hemoglobin Concent 30.0 G/DL (32.0-36.0) 30.3 G/DL (32.0-36.0) Red Cell Distribution Width 19.3 % (11.6-14.8) 19.2 % (11.6-14.8) Platelet Count 213 K/UL (150-450) 204 K/UL (150-450) Mean Platelet Volume 8.5 FL (6.5-10.1) 7.5 FL (6.5-10.1) Neutrophils (%) (Auto) 56.0 % (45.0-75.0) % (45.0-75.0) Lymphocytes (%) (Auto) 29.3 % (20.0-45.0) % (20.0-45.0) Monocytes (%) (Auto) 9.8 % (1.0-10.0) % (1.0-10.0) Eosinophils (%) (Auto) 3.7 % (0.0-3.0) % (0.0-3.0) Basophils (%) (Auto) 1.1 % (0.0-2.0) % (0.0-2.0) Sodium Level 141 MMOL/L (136-145) 139 MMOL/L (136-145) Potassium Level 3.4 MMOL/L (3.5-5.1) 2.9 MMOL/L (3.5-5.1) Chloride Level 99 MMOL/L (98-107) 93 MMOL/L (98-107) Carbon Dioxide Level 43 MMOL/L (21-32) 43 MMOL/L (21-32) Anion Gap 0 mmol/L (5-15) 4 mmol/L (5-15) Blood Urea Nitrogen 12 mg/dL (7-18) 14 mg/dL (7-18) Creatinine 0.5 MG/DL (0.55-1.30) 0.4 MG/DL (0.55-1.30) Estimat Glomerular Filtration Rate > 60 mL/min (>60) > 60 mL/min (>60) Glucose Level 134 MG/DL (74-106) 136 MG/DL (74-106) Calcium Level 9.3 MG/DL (8.5-10.1) 9.2 MG/DL (8.5-10.1) Phosphorus Level 2.6 MG/DL (2.5-4.9) 2.7 MG/DL (2.5-4.9) Magnesium Level 2.2 MG/DL (1.8-2.4) 1.8 MG/DL (1.8-2.4) Total Bilirubin 1.2 MG/DL (0.2-1.0) 1.6 MG/DL (0.2-1.0) Direct Bilirubin 0.2 MG/DL (0.0-0.3) 0.3 MG/DL (0.0-0.3) Aspartate Amino Transf (AST/SGOT) 37 U/L (15-37) 31 U/L (15-37) Alanine Aminotransferase (ALT/SGPT) 25 U/L (12-78) 23 U/L (12-78) Alkaline Phosphatase 82 U/L (46-116) 72 U/L (46-116) Total Protein 7.1 G/DL (6.4-8.2) 6.9 G/DL (6.4-8.2) Albumin 2.3 G/DL (3.4-5.0) 2.2 G/DL (3.4-5.0) Differential Total Cells Counted 100 Neutrophils % (Manual) 53 % (45-75) Lymphocytes % (Manual) 36 % (20-45) Monocytes % (Manual) 7 % (1-10) Eosinophils % (Manual) 4 % (0-3) Basophils % (Manual) 0 % (0-2) Band Neutrophils 0 % (0-8) Platelet Estimate Adequate Platelet Morphology Normal Hypochromasia 1+ Anisocytosis 2+ Globulin 4.7 g/dL Albumin/Globulin Ratio 0.5 (1.0-2.7) Stool Occult Blood Negative (NEGATIVE) Arterial Blood pH 7.478 (7.350-7.450) Arterial Blood Partial Pressure CO2 57.1 mmHg (35.0-45.0) Arterial Blood Partial Pressure O2 88.5 mmHg (75.0-100.0) Arterial Blood HCO3 41.4 mmol/L (22.0-26.0) Arterial Blood Oxygen Saturation 96.1 % (95-100) Arterial Blood Base Excess 16.0 (-2-2) Jeremiah Test Positive Test 07/07/20 09:05 White Blood Count 11.9 K/UL (4.8-10.8) Red Blood Count 2.90 M/UL (4.20-5.40) Hemoglobin 8.5 G/DL (12.0-16.0) Hematocrit 27.5 % (37.0-47.0) Mean Corpuscular Volume 95 FL (80-99) Mean Corpuscular Hemoglobin 29.4 PG (27.0-31.0) Mean Corpuscular Hemoglobin Concent 31.0 G/DL (32.0-36.0) Red Cell Distribution Width 18.4 % (11.6-14.8) Platelet Count 253 K/UL (150-450) Mean Platelet Volume 7.9 FL (6.5-10.1) Neutrophils (%) (Auto) 66.9 % (45.0-75.0) Lymphocytes (%) (Auto) 22.8 % (20.0-45.0) Monocytes (%) (Auto) 7.5 % (1.0-10.0) Eosinophils (%) (Auto) 1.5 % (0.0-3.0) Basophils (%) (Auto) 1.3 % (0.0-2.0) Height (Feet): 5 Height (Inches): 6.00 Weight (Pounds): 239 Objective GeNL: nv Pulm: vent/trach++ CV: rrr Abd: soft, nt, nd Ext: no cce Myron Condon MD Jul 07, 2020 09:47
--- NOTE | 2020-07-07 11:07 | NUR ---
NURSE NOTES: Seen by Dr. Devine and inserted on right groin femoral TLC. And also inserted new NGT on right nostril. He ordered stat KUB, s/p ngt placement.
--- NOTE | 2020-07-07 11:09 | Surgery Progress Note ---
Surgery Progress Note Subjective Procedure Performed Tracheostomy Bronchoscopy Additional Comments pulled picc pulled ng central line placed at bedside new ng placed Objective Last 24 Hour Vital Signs Date Time Temp Pulse Resp B/P (MAP) Pulse Ox O2 Delivery O2 Flow Rate FiO2 07/07/20 11:00 114 26 112/71 (85) 98 07/07/20 10:00 116 21 116/72 (87) 95 07/07/20 09:00 118 27 103/78 (86) 93 07/07/20 08:00 Mechanical Ventilator Mechanical Ventilator 07/07/20 08:00 100.2 107 32 126/82 (97) 99 07/07/20 07:34 103 27 80 07/07/20 07:00 91 0 110/67 (81) 100 07/07/20 06:45 92 0 100 07/07/20 06:42 22 120/78 Mechanical Ventilator 07/07/20 06:30 100 29 120/78 (92) 99 07/07/20 06:30 96 22 07/07/20 06:15 102 30 100 07/07/20 06:00 104 30 100 07/07/20 06:00 95 07/07/20 06:00 100 07/07/20 06:00 104 30 100 07/07/20 05:30 109 24 111/92 (98) 88 07/07/20 05:00 102 28 96/66 (76) 97 07/07/20 04:47 95 19 98/69 (79) 96 07/07/20 04:44 94 11 79/58 (65) 96 07/07/20 04:43 98 15 84/50 (61) 96 07/07/20 04:39 97 18 80/59 (66) 94 07/07/20 04:00 100 07/07/20 04:00 95 07/07/20 04:00 97 21 106/49 (68) 93 07/07/20 04:00 100.2 95 07/07/20 04:00 Mechanical Ventilator Mechanical Ventilator 07/07/20 03:24 92 19 55 07/07/20 03:00 92 21 93/62 (72) 97 07/07/20 02:30 92 18 100/46 (64) 94 07/07/20 02:00 92 22 92/60 (71) 95 07/07/20 01:30 98 27 96/61 (73) 87 07/07/20 01:00 100 23 96/59 (71) 93 07/07/20 00:15 18 91/59 Mechanical Ventilator 07/07/20 00:00 Mechanical Ventilator Mechanical Ventilator 07/07/20 00:00 95 07/07/20 00:00 100.2 95 20 91/59 (70) 94 07/07/20 00:00 55 07/06/20 23:30 90 18 95/50 (65) 100 07/06/20 23:30 89 19 55 07/06/20 23:00 89 18 93/47 (62) 100 07/06/20 22:30 89 18 90/53 (65) 100 07/06/20 22:00 88 16 86/50 (62) 100 07/06/20 21:30 88 18 94/43 (60) 100 07/06/20 21:00 92 18 86/47 (60) 100 07/06/20 20:00 60 07/06/20 20:00 95 07/06/20 20:00 Mechanical Ventilator Mechanical Ventilator 07/06/20 20:00 101.2 98 20 86/49 (61) 95 07/06/20 19:20 102 23 60 07/06/20 19:00 102 25 87/55 (66) 96 07/06/20 18:00 96 25 98/53 (68) 97 07/06/20 18:00 25 98/53 Endotracheal Tube 80 07/06/20 18:00 25 98/53 Endotracheal Tube 80 07/06/20 17:00 94 22 98/57 (71) 95 07/06/20 17:00 22 98/57 Endotracheal Tube 80 07/06/20 17:00 22 98/57 Endotracheal Tube 80 07/06/20 16:00 Mechanical Ventilator Mechanical Ventilator 07/06/20 16:00 98.2 96 23 96/47 (63) 99 07/06/20 16:00 23 96/47 Endotracheal Tube 80 07/06/20 16:00 23 96/47 Endotracheal Tube 80 07/06/20 16:00 95 07/06/20 16:00 80 07/06/20 15:39 94 24 60 07/06/20 15:00 98 29 100/52 (68) 98 07/06/20 15:00 29 100/52 Endotracheal Tube 80 07/06/20 15:00 29 100/52 Endotracheal Tube 80 07/06/20 14:00 96 24 95/51 (66) 97 07/06/20 14:00 24 95/51 Endotracheal Tube 80 07/06/20 14:00 24 95/51 Endotracheal Tube 80 07/06/20 13:00 25 98/51 Endotracheal Tube 80 07/06/20 13:00 25 98/51 Endotracheal Tube 80 07/06/20 13:00 98 25 98/51 (67) 96 07/06/20 12:00 Mechanical Ventilator Mechanical Ventilator 07/06/20 12:00 99.8 95 24 100/55 (70) 100 07/06/20 12:00 103 07/06/20 12:00 24 100/55 Endotracheal Tube 80 07/06/20 12:00 24 100/55 Endotracheal Tube 80 07/06/20 12:00 80 07/06/20 11:26 97 27 70 I&O Intake and Output 07/06/20 07/07/20 19:00 07:00 Intake Total 1394 ml 880.0 ml Output Total 500 ml 685 ml Balance 894 ml 195.0 ml Free Water 300 ml IV Total 374 ml 340.0 ml Tube Feeding 720 ml 540 ml Output Urine Total 450 ml 665 ml Stool Total 50 ml 20 ml Dressing: saturated Cardiovascular: RSR Respiratory: decreased breath sounds Abdomen: soft, non-tender, present bowel sounds, non-distended Extremities: edema, no tenderness, no cyanosis Laboratory Tests Test 07/07/20 09:05 White Blood Count 11.9 K/UL (4.8-10.8) #H Red Blood Count 2.90 M/UL (4.20-5.40) L Hemoglobin 8.5 G/DL (12.0-16.0) L Hematocrit 27.5 % (37.0-47.0) L Mean Corpuscular Volume 95 FL (80-99) Mean Corpuscular Hemoglobin 29.4 PG (27.0-31.0) Mean Corpuscular Hemoglobin Concent 31.0 G/DL (32.0-36.0) L Red Cell Distribution Width 18.4 % (11.6-14.8) H Platelet Count 253 K/UL (150-450) Mean Platelet Volume 7.9 FL (6.5-10.1) Neutrophils (%) (Auto) 66.9 % (45.0-75.0) Lymphocytes (%) (Auto) 22.8 % (20.0-45.0) Monocytes (%) (Auto) 7.5 % (1.0-10.0) Eosinophils (%) (Auto) 1.5 % (0.0-3.0) Basophils (%) (Auto) 1.3 % (0.0-2.0) Plan Problems: (1) Respiratory distress (2) Respiratory failure Assessment & Plan: 50-year-old female Covid positive respiratory insufficiency intubated on ventilatory support declining. Leukocytosis increase oxygen requirement. Vent settings per pulmonology reviewed identified and agree. Unfortunately further surgical invention at this time is not appropriate as patient is not a candidate and her current condition. Prognosis overall guarded. Tracheostomy can be considered in the future if recovering or shows improvement and requires unable to be weaned from ventilator support. Currently okay for nutritional optimization with NG tube. Will need significant monitoring for decubitus formation given patient's size and condition. Okay for air mattress tolerated. Turn every 2 hours as tolerated. Patient is otherwise critically ill and blood pressure labile. Will need to monitor closely.Bilateral infiltrates are again demonstrated. Stable tube and line positions. will need trach will need to wean vent first (3) Hypoxia (4) Pneumonia due to COVID-19 virus Assessment & Plan: ++ as per pulm and ID (5) Diabetes mellitus out of control Assessment & Plan: DAILY ESTIMATED NEEDS: Needs based on Critical care, obesity 11-14kcal/kg actual body wt (140kg) kcals/kg 7939-9605 total kcals 1.5-2.0g prot/kg IBW (64.5kg) g protein/kg 96-129 g total protein 25-30ml/kg abw (83kg) mL/kg 5161-9120 total fluid mLs NUTRITION DIAGNOSIS: Swallowing difficulty R/T respiratory failure as evidenced by pt orally intubated and sedated, on OGT feeds. CURRENT TF: Vital 1.2 goal of 60ml/hr ENTERAL NUTRITION RECOMMENDATIONS: Vital AF 1.2 @ 60ml/hr x 24 hrs to provide 1440ml, 1728kcal, 108g prot, 1168ml free water * Maintain current critical care and carb controlled TF formula of Vital AF * TF @ goal meeds 100% est kcal/prot needs * HOB over 30 degrees/ water flush per MD TF may be lowered to 55ml/hr for improved BG control while maintaining Kcal and pro needs. ADDITIONAL RECOMMENDATIONS: * Calibrated bedscale wt * Monitor Propofol rate, need for TF adjustment-> now off * Monitor BGs closely : now improved, on novolog q 6rs + NISS * Monitor lytes- K elevated, monitor need for TF change * Rec bowel regimen- now w/ rectal tube . Az Devine Jul 07, 2020 11:09
--- NOTE | 2020-07-07 11:10 | Operative Note - PDOC ---
Operative Note Operative Note Date of Operation/Procedure: Jul 07, 2020 Pre-op Diagnosis: covid + sepsis respiratory insufficiency Procedure: right femoral central venous line insertion Post-op Diagnosis: same as pre-op Surgeon: Az Devine Anesthesiologist: José Anesthesia: general, local Specimen: none Complications: none Condition: stable Fluids: See records Estimated Blood Loss: minimal Implant(s) used?: No Indications for Procedure Patient recently pulled out her NG tube and her PICC line. She is critically ill intensive care unit on support ventilatory sedation with fentanyl and Versed needs access peripheral difficult. Central venous catheter urgently indicated recommended. NG tube inserted as well. Description of Procedure Patient was made comfortable the bedside. The right groin is prepped draped in the same surgical fashion. Anatomic landmarks identified. Lidocaine 1% was infiltrated in the proposed needle site catheter site. Finder needle was used and the right femoral vein was cannulated without complication good venous flow identified. Guidewire placed the needle needle removed. Small skin incision made around the guidewire. Dilator was used triple-lumen catheter was inserted over the guidewire guidewire was removed and discarded. All ports flushed and aspirated appropriately. Line sutured in place. Dressings applied. Line okay for use. Patient tolerated procedure well. Az Devine Jul 07, 2020 11:10
--- NOTE | 2020-07-07 11:42 | Diagnostic Imaging Report ---
EXAM: XR Abdomen, 2 Views CLINICAL HISTORY: TUBE PLCMT TECHNIQUE: Frontal view of the abdomen/pelvis with upright view of the abdomen. COMPARISON: 06/14/20 FINDINGS: Lower thorax: Hazy bilateral lung attenuation, not well evaluate on this study, consider dedicated chest imaging. Intraperitoneal space: No free air. Gastrointestinal tract: Unremarkable. No dilation. Bones/joints: Unremarkable. Tubes, lines and devices: Enteric tube with tip and proximal sideport below the gastroesophageal junction; if tube is being used for gastric decompression, position is adequate. IMPRESSION: 1. Enteric tube with tip and proximal sideport below the gastroesophageal junction; if tube is being used for gastric decompression, position is adequate. 2. Hazy bilateral lung attenuation, not well evaluate on this study, consider dedicated chest imaging.
--- NOTE | 2020-07-07 11:49 | General Progress Note ---
Subjective ROS Limited/Unobtainable: Yes Allergies: Coded Allergies: No Known Allergies (Unverified , 05/28/20) Subjective events noted interval notes reviewed glucose values are stable Item Value Date Time Bedside Blood Glucose 137 mg/dl H 07/07/20 0600 Bedside Blood Glucose 125 mg/dl H 07/07/20 0000 Bedside Blood Glucose 131 mg/dl H 07/06/20 1200 Objective Last 24 Hour Vital Signs Date Time Temp Pulse Resp B/P (MAP) Pulse Ox O2 Delivery O2 Flow Rate FiO2 07/07/20 11:18 115 30 80 07/07/20 11:00 114 26 112/71 (85) 98 07/07/20 10:00 116 21 116/72 (87) 95 07/07/20 09:00 118 27 103/78 (86) 93 07/07/20 08:00 Mechanical Ventilator Mechanical Ventilator 07/07/20 08:00 100.2 107 32 126/82 (97) 99 07/07/20 07:34 103 27 80 07/07/20 07:00 91 0 110/67 (81) 100 07/07/20 06:45 92 0 100 07/07/20 06:42 22 120/78 Mechanical Ventilator 07/07/20 06:30 100 29 120/78 (92) 99 07/07/20 06:30 96 22 07/07/20 06:15 102 30 100 07/07/20 06:00 104 30 100 07/07/20 06:00 95 07/07/20 06:00 100 07/07/20 06:00 104 30 100 07/07/20 05:30 109 24 111/92 (98) 88 07/07/20 05:00 102 28 96/66 (76) 97 07/07/20 04:47 95 19 98/69 (79) 96 07/07/20 04:44 94 11 79/58 (65) 96 07/07/20 04:43 98 15 84/50 (61) 96 07/07/20 04:39 97 18 80/59 (66) 94 07/07/20 04:00 100 07/07/20 04:00 95 07/07/20 04:00 97 21 106/49 (68) 93 07/07/20 04:00 100.2 95 07/07/20 04:00 Mechanical Ventilator Mechanical Ventilator 07/07/20 03:24 92 19 55 2/14/21 03:00 92 21 93/62 (72) 97 07/07/20 02:30 92 18 100/46 (64) 94 07/07/20 02:00 92 22 92/60 (71) 95 07/07/20 01:30 98 27 96/61 (73) 87 07/07/20 01:00 100 23 96/59 (71) 93 07/07/20 00:15 18 91/59 Mechanical Ventilator 07/07/20 00:00 Mechanical Ventilator Mechanical Ventilator 07/07/20 00:00 95 07/07/20 00:00 100.2 95 20 91/59 (70) 94 07/07/20 00:00 55 07/06/20 23:30 90 18 95/50 (65) 100 07/06/20 23:30 89 19 55 07/06/20 23:00 89 18 93/47 (62) 100 07/06/20 22:30 89 18 90/53 (65) 100 07/06/20 22:00 88 16 86/50 (62) 100 07/06/20 21:30 88 18 94/43 (60) 100 07/06/20 21:00 92 18 86/47 (60) 100 07/06/20 20:00 60 07/06/20 20:00 95 07/06/20 20:00 Mechanical Ventilator Mechanical Ventilator 07/06/20 20:00 101.2 98 20 86/49 (61) 95 07/06/20 19:20 102 23 60 07/06/20 19:00 102 25 87/55 (66) 96 07/06/20 18:00 96 25 98/53 (68) 97 07/06/20 18:00 25 98/53 Endotracheal Tube 80 07/06/20 18:00 25 98/53 Endotracheal Tube 80 07/06/20 17:00 94 22 98/57 (71) 95 07/06/20 17:00 22 98/57 Endotracheal Tube 80 07/06/20 17:00 22 98/57 Endotracheal Tube 80 07/06/20 16:00 Mechanical Ventilator Mechanical Ventilator 07/06/20 16:00 98.2 96 23 96/47 (63) 99 07/06/20 16:00 23 96/47 Endotracheal Tube 80 07/06/20 16:00 23 96/47 Endotracheal Tube 80 07/06/20 16:00 95 07/06/20 16:00 80 07/06/20 15:39 94 24 60 07/06/20 15:00 98 29 100/52 (68) 98 07/06/20 15:00 29 100/52 Endotracheal Tube 80 07/06/20 15:00 29 100/52 Endotracheal Tube 80 07/06/20 14:00 96 24 95/51 (66) 97 07/06/20 14:00 24 95/51 Endotracheal Tube 80 07/06/20 14:00 24 95/51 Endotracheal Tube 80 07/06/20 13:00 25 98/51 Endotracheal Tube 80 07/06/20 13:00 25 98/51 Endotracheal Tube 80 07/06/20 13:00 98 25 98/51 (67) 96 07/06/20 12:00 Mechanical Ventilator Mechanical Ventilator 07/06/20 12:00 99.8 95 24 100/55 (70) 100 07/06/20 12:00 103 07/06/20 12:00 24 100/55 Endotracheal Tube 80 07/06/20 12:00 24 100/55 Endotracheal Tube 80 07/06/20 12:00 80 Intake and Output 07/06/20 07/07/20 19:00 07:00 Intake Total 1394 ml 880.0 ml Output Total 500 ml 685 ml Balance 894 ml 195.0 ml Free Water 300 ml IV Total 374 ml 340.0 ml Tube Feeding 720 ml 540 ml Output Urine Total 450 ml 665 ml Stool Total 50 ml 20 ml Laboratory Tests 07/07/20 09:05: White Blood Count 11.9#H, Red Blood Count 2.90L, Hemoglobin 8.5L, Hematocrit 27.5L, Mean Corpuscular Volume 95, Mean Corpuscular Hemoglobin 29.4, Mean Corpuscular Hemoglobin Concent 31.0L, Red Cell Distribution Width 18.4H, Platelet Count 253, Mean Platelet Volume 7.9, Neutrophils (%) (Auto) 66.9, Lymphocytes (%) (Auto) 22.8, Monocytes (%) (Auto) 7.5, Eosinophils (%) (Auto) 1.5, Basophils (%) (Auto) 1.3 Height (Feet): 5 Height (Inches): 6.00 Weight (Pounds): 239 Objective Current Medications Medications (Trade) Dose Ordered Sig/Zelda Route PRN Reason Start Time Stop Time Status Last Admin Dose Admin Acetaminophen (Tylenol) 650 mg Q4H PRN NG Temp >100.5 06/29/20 10:15 07/29/20 10:14 07/05/20 12:45 Acetaminophen (Tylenol) 650 mg Q6H PRN NG Mild Pain (Pain Scale 1-3) 06/29/20 10:15 07/29/20 10:14 Chlorhexidine Gluconate (Inna-Hex 2%) 1 applic DAILY@2000 TOPIC 05/30/20 20:00 08/28/20 19:59 07/06/20 20:04 Dextrose (Dextrose 50%) 25 ml Q30M PRN IV Hypoglycemia 06/05/20 10:45 09/03/20 10:44 Dextrose (Dextrose 50%) 50 ml Q30M PRN IV Hypoglycemia 06/05/20 10:45 09/03/20 10:44 Docusate Sodium (Colace) 100 mg Q12HR GT 06/07/20 21:00 07/07/20 20:59 07/06/20 20:04 Enoxaparin Sodium (Lovenox) 40 mg DAILY SUBQ 05/30/20 10:00 08/28/20 09:59 07/07/20 09:12 Fentanyl Citrate 250 ml @ 0 mls/hr Q24H PRN IV SEDATION 07/05/20 12:59 07/07/20 12:58 07/07/20 06:42 Furosemide (Lasix) 40 mg DAILY IV 06/22/20 09:00 07/22/20 08:59 07/07/20 09:11 Insulin Aspart (NovoLOG) EVERY 6 HOURS SUBQ 06/07/20 00:00 09/03/20 11:59 07/06/20 06:10 Midazolam HCl 200 ml @ 0 mls/hr Q24H PRN IV sedation 07/06/20 06:00 07/08/20 06:00 07/07/20 00:15 Midodrine (Pro-Amatine) 10 mg Q8HR GT 06/30/20 14:00 09/12/20 13:59 07/06/20 20:04 Polyethylene Glycol (Miralax) 17 gm BEDTIME GT 06/07/20 21:00 07/07/20 20:59 07/06/20 20:04 Vitamin D (Vitamin D) 5,000 unit DAILY GT 06/28/20 09:00 07/28/20 08:59 07/06/20 08:44 Assessment/Plan Problem List: (1) Diabetes mellitus out of control ICD Codes: E11.65 - Type 2 diabetes mellitus with hyperglycemia SNOMED: 01562779, 509349546 (2) Pneumonia due to COVID-19 virus ICD Codes: U07.1 - COVID-19; J12.82 - Pneumonia due to coronavirus disease 2019 SNOMED: 051205335646274308 (3) Respiratory distress ICD Codes: R06.03 - Acute respiratory distress; J12.82 - Pneumonia due to coronavirus disease 2019 SNOMED: 572299788 Status: unchanged Assessment/Plan: no need for basal insulin continue Novolog sliding scale every 6 hours Huber Adame MD Jul 07, 2020 11:49
--- NOTE | 2020-07-07 13:00 | NUR ---
NURSE NOTES: Placed NGT to low suction. Held NGT feeding for today. Minimal output on canister. KUB xray ngt in placed.
--- NOTE | 2020-07-07 14:07 | Nephrology Progress Note ---
Assessment/Plan Problem List: (1) DEVENDRA (acute kidney injury) (2) Morbid obesity (3) Diabetes mellitus out of control (4) Pneumonia due to COVID-19 virus (5) Respiratory failure Assessment Acute renal failure Obstructive uropathy, clogged Lennon Respiratory failure COVID-19 pneumonia Morbid obesity Plan July 07: No CHEM panel drawn today. More potassium given. Continue to monitor renal parameters. Continue per consultants. Discussed with RAKEL Veras. July 06: Low potassium addressed. Albumin bolus for low BP given. Patient remains full code. Continue to monitor electrolytes and renal parameters. Continue per consultants. Hemoglobin low today, transfusion per [employer] [facility]. July 05: Trach to vent. FiO2 80%. Renal parameters stable. PCO2 remains high at 44. Continue to monitor renal parameters. July 04: Patient now trach. Full code. Labs reviewed. Renal parameters stable. Low magnesium addressed. July 03: Intubated. Full code. Labs reviewed. Abnormal electrolytes addressed. Continue per consultants. Overall status unchanged. July 02: Remains intubated. Remains full code. Remains on FiO2 of 70%. Labs reviewed. Abnormal electrolytes addressed. Continue per pulmonary. July 01: Remains on 70% FiO2. Full code. Intubated on ventilator. Retaining CO2. Discussed with RN. Will do ABG today. Albumin bolus given. 1 dose of Diamox given. June 30: Status quo. Labs reviewed. Abnormal electrolytes addressed. Remains full code. Remains on ventilator. Magnesium sulfate 4 gram IVPB given. June 29: Full code. Intubated on ventilator. Labs reviewed. Stable from renal standpoint of view. Continue per consultants. June 28: Remains full code. Remains intubated on ventilator. Labs reviewed. Vitamin D supplement ordered. Continue to monitor renal parameters. Continue per consultants. June 27: Remains full code. Intubated on ventilator. Labs reviewed. Abnormal electrolyte addressed. Continue to monitor renal parameters and electrolytes. Continue per consultants. June 26: Labs reviewed. Remains full code. Remains intubated. Back on NGT feeding. Continue to monitor renal parameters. June 25: Labs reviewed. Renal parameters stable. Remains full code. Due to positional status patient could not be fed via NG tube. Starting TPN? Is being entertained. Continue per consultants. June 24: Labs reviewed. Renal parameters stable. Remains full code. Remains intubated on ventilator. Continue per consultants. June 23: Labs reviewed. Renal parameters stable. Discussed with RN. Abnormal electrolyte addressed. Remains full code. Remains on ventilator. Continue per consultants. June 22: Labs reviewed. Low potassium addressed. Discussed with RAKEL Moran. Patient full code. Remains on ventilator. Continue to monitor renal parameters. June 21. Labs reviewed. Abnormal electrolyte addressed. Full code. Remains on ventilator. Medication list reviewed. Continue per pulmonary management. DC IV fluid, resume Lasix daily, check chest x-ray. June 20: Labs reviewed. Abnormal electrolytes. Patient remains full code. Continue per consultants. Noted and addressed June 19: Labs reviewed. Abnormal electrolytes noted and addressed. Remains intubated on ventilator. Remains full code. June 18: Labs reviewed. Remains intubated on ventilator. Full code. Abnormal electrolyte addressed. Continue as is. June 17: Labs reviewed. Abnormal electrolytes addressed. Patient remains full code and intubated on ventilator. Continue per consultants. Renal parameters are within normal limits. June 16: Labs reviewed. Potassium chloride replaced. Remains full code. Remains intubated on ventilator. Continue per consultants. Continue to monitor renal parameters. June 15: Labs reviewed. Serum creatinine 1. Stable from renal standpoint to view. Continue per consultants. June 14: Labs reviewed. Full code. Serum creatinine of 3.5 down to 1.4. Low potassium addressed. Continue per current treatment plan. Continue to monitor renal parameters. Midodrine started. Albumin bolus given. Previously: DC Lasix drip Increase Protonix dose Monitor renal parameters, electrolytes Per orders Subjective ROS Limited/Unobtainable: Yes Objective Objective Last 24 Hour Vital Signs Date Time Temp Pulse Resp B/P (MAP) Pulse Ox O2 Delivery O2 Flow Rate FiO2 07/07/20 13:00 103 24 109/70 (83) 99 07/07/20 12:00 100 07/07/20 12:00 Mechanical Ventilator Mechanical Ventilator 07/07/20 12:00 100.0 102 18 129/74 (92) 100 07/07/20 11:18 115 30 80 07/07/20 11:17 106 07/07/20 11:00 26 112/71 Mechanical Ventilator 80 07/07/20 11:00 26 112/71 Mechanical Ventilator 80 07/07/20 11:00 114 26 112/71 (85) 98 07/07/20 10:00 21 116/72 Mechanical Ventilator 80 07/07/20 10:00 21 116/72 Mechanical Ventilator 80 07/07/20 10:00 116 21 116/72 (87) 95 07/07/20 09:00 118 27 103/78 (86) 93 07/07/20 09:00 27 103/78 Mechanical Ventilator 80 07/07/20 09:00 27 103/78 Mechanical Ventilator 80 07/07/20 08:00 Mechanical Ventilator Mechanical Ventilator 07/07/20 08:00 32 126/82 Mechanical Ventilator 80 07/07/20 08:00 32 126/82 Mechanical Ventilator 80 07/07/20 08:00 100.2 107 32 126/82 (97) 99 07/07/20 07:34 103 27 80 07/07/20 07:00 91 0 110/67 (81) 100 07/07/20 06:45 92 0 100 07/07/20 06:42 22 120/78 Mechanical Ventilator 07/07/20 06:30 100 29 120/78 (92) 99 07/07/20 06:30 96 22 07/07/20 06:15 102 30 100 07/07/20 06:00 104 30 100 07/07/20 06:00 95 07/07/20 06:00 100 07/07/20 06:00 104 30 100 07/07/20 05:30 109 24 111/92 (98) 88 07/07/20 05:00 102 28 96/66 (76) 97 07/07/20 04:47 95 19 98/69 (79) 96 07/07/20 04:44 94 11 79/58 (65) 96 07/07/20 04:43 98 15 84/50 (61) 96 07/07/20 04:39 97 18 80/59 (66) 94 07/07/20 04:00 100 07/07/20 04:00 95 07/07/20 04:00 97 21 106/49 (68) 93 07/07/20 04:00 100.2 95 07/07/20 04:00 Mechanical Ventilator Mechanical Ventilator 07/07/20 03:24 92 19 55 07/07/20 03:00 92 21 93/62 (72) 97 07/07/20 02:30 92 18 100/46 (64) 94 07/07/20 02:00 92 22 92/60 (71) 95 07/07/20 01:30 98 27 96/61 (73) 87 07/07/20 01:00 100 23 96/59 (71) 93 07/07/20 00:15 18 91/59 Mechanical Ventilator 07/07/20 00:00 Mechanical Ventilator Mechanical Ventilator 07/07/20 00:00 95 07/07/20 00:00 100.2 95 20 91/59 (70) 94 07/07/20 00:00 55 07/06/20 23:30 90 18 95/50 (65) 100 07/06/20 23:30 89 19 55 07/06/20 23:00 89 18 93/47 (62) 100 07/06/20 22:30 89 18 90/53 (65) 100 07/06/20 22:00 88 16 86/50 (62) 100 07/06/20 21:30 88 18 94/43 (60) 100 07/06/20 21:00 92 18 86/47 (60) 100 07/06/20 20:00 60 07/06/20 20:00 95 07/06/20 20:00 Mechanical Ventilator Mechanical Ventilator 07/06/20 20:00 101.2 98 20 86/49 (61) 95 07/06/20 19:20 102 23 60 07/06/20 19:00 102 25 87/55 (66) 96 07/06/20 18:00 96 25 98/53 (68) 97 07/06/20 18:00 25 98/53 Endotracheal Tube 80 07/06/20 18:00 25 98/53 Endotracheal Tube 80 07/06/20 17:00 94 22 98/57 (71) 95 07/06/20 17:00 22 98/57 Endotracheal Tube 80 07/06/20 17:00 22 98/57 Endotracheal Tube 80 07/06/20 16:00 Mechanical Ventilator Mechanical Ventilator 07/06/20 16:00 98.2 96 23 96/47 (63) 99 07/06/20 16:00 23 96/47 Endotracheal Tube 80 07/06/20 16:00 23 96/47 Endotracheal Tube 80 07/06/20 16:00 95 07/06/20 16:00 80 07/06/20 15:39 94 24 60 07/06/20 15:00 98 29 100/52 (68) 98 07/06/20 15:00 29 100/52 Endotracheal Tube 80 07/06/20 15:00 29 100/52 Endotracheal Tube 80 Intake and Output 07/06/20 07/07/20 19:00 07:00 Intake Total 1394 ml 880.0 ml Output Total 500 ml 685 ml Balance 894 ml 195.0 ml Free Water 300 ml IV Total 374 ml 340.0 ml Tube Feeding 720 ml 540 ml Output Urine Total 450 ml 665 ml Stool Total 50 ml 20 ml Current Medications Medications (Trade) Dose Ordered Sig/Zelda Route PRN Reason Start Time Stop Time Status Last Admin Dose Admin Acetaminophen (Tylenol) 650 mg Q4H PRN NG Temp >100.5 06/29/20 10:15 07/29/20 10:14 07/05/20 12:45 Acetaminophen (Tylenol) 650 mg Q6H PRN NG Mild Pain (Pain Scale 1-3) 06/29/20 10:15 07/29/20 10:14 Chlorhexidine Gluconate (Inna-Hex 2%) 1 applic DAILY@2000 TOPIC 05/30/20 20:00 08/28/20 19:59 07/06/20 20:04 Dextrose (Dextrose 50%) 25 ml Q30M PRN IV Hypoglycemia 06/05/20 10:45 09/03/20 10:44 Dextrose (Dextrose 50%) 50 ml Q30M PRN IV Hypoglycemia 06/05/20 10:45 09/03/20 10:44 Docusate Sodium (Colace) 100 mg Q12HR GT 06/07/20 21:00 07/07/20 20:59 07/06/20 20:04 Enoxaparin Sodium (Lovenox) 40 mg DAILY SUBQ 05/30/20 10:00 08/28/20 09:59 07/07/20 09:12 Furosemide (Lasix) 40 mg DAILY IV 06/22/20 09:00 07/22/20 08:59 07/07/20 09:11 Insulin Aspart (NovoLOG) EVERY 6 HOURS SUBQ 06/07/20 00:00 09/03/20 11:59 07/06/20 06:10 Midazolam HCl 200 ml @ 0 mls/hr Q24H PRN IV sedation 07/06/20 06:00 07/08/20 06:00 07/07/20 00:15 Midodrine (Pro-Amatine) 10 mg Q8HR GT 06/30/20 14:00 09/12/20 13:59 07/06/20 20:04 Polyethylene Glycol (Miralax) 17 gm BEDTIME GT 06/07/20 21:00 07/07/20 20:59 07/06/20 20:04 Potassium Chloride 100 ml @ 50 mls/hr Q2HR IVPB 07/07/20 14:00 07/07/20 17:59 Vitamin D (Vitamin D) 5,000 unit DAILY GT 06/28/20 09:00 07/28/20 08:59 07/06/20 08:44 Laboratory Tests 07/07/20 09:05: White Blood Count 11.9#H, Red Blood Count 2.90L, Hemoglobin 8.5L, Hematocrit 27.5L, Mean Corpuscular Volume 95, Mean Corpuscular Hemoglobin 29.4, Mean Corpuscular Hemoglobin Concent 31.0L, Red Cell Distribution Width 18.4H, Platelet Count 253, Mean Platelet Volume 7.9, Neutrophils (%) (Auto) 66.9, Lymphocytes (%) (Auto) 22.8, Monocytes (%) (Auto) 7.5, Eosinophils (%) (Auto) 1.5, Basophils (%) (Auto) 1.3 Height (Feet): 5 Height (Inches): 6.00 Weight (Pounds): 239 General Appearance: no apparent distress EENT: other - Trach to vent Cardiovascular: tachycardia Respiratory/Chest: decreased breath sounds Abdomen: distended Rigo Tyler MD Jul 07, 2020 14:07
--- NOTE | 2020-07-07 15:10 | NUR ---
NURSE NOTES: No s/sx of bleeding at right groin s/p femoral TLC in placed. Patent/intact.
--- NOTE | 2020-07-07 17:55 | NUR ---
NURSE NOTES: Turned and repositioned. HOB elevated at all times. No grimacing noted.
--- NOTE | 2020-07-07 19:15 | NUR ---
NURSE HAND-OFF REPORT: Latest Vital Signs: Temperature 99.8 , Pulse 84 , B/P 91 /55 , Respiratory Rate 19 , O2 SAT 100 , Mechanical Ventilator, O2 Flow Rate . Vital Sign Comment: wnl EKG Rhythm: Sinus Rhythm Rhythm change?: Jesus TOLLIVER Notified?: Babs EDWARDS MD Response: Latest Meyers Fall Score: 70 Fall Risk: High Risk Safety Measures: Call light Within Reach, Bed Alarm Zone 1, Side Rails Side Rails x2, Bed position Low and Locked. Fall Precautions: Yellow Socks Report given to Jacob ELLINGTON.
--- NOTE | 2020-07-07 19:30 | NUR ---
report received from day rn. Fem line inserted. Plan to hold feeds due to emesis episode. Orders for continuous suction. Pt hemodynamically stable. Will continue to monitor
[2020-07-07] MEDS: fentaNYL 2500mcg/NS 250ml 250 ML IV SCH (19:34)
[2020-07-07] MEDS: Dyna-Hex 2% Top Sol 2oz TOPIC SCH (20:28)
[2020-07-08] VITALS (37 sets, daily range): BP systolic 50–126; BP diastolic 16–93
--- NOTE | 2020-07-08 | NUR ---
blood sugar wnl. no coverage needed. Hemodynamically stable. minimal urine output. will continue to monitor
--- NOTE | 2020-07-08 04:00 | NUR ---
Hygiene care provided. Pt became hypotensive. Repositioned. Blood pressure corrected but could benefit from fluids. Will continue to monitor.
[2020-07-08] MEDS: Versed 100mg/NS 200ml 200 ML IV PRN ×3 (05:19→23:33)
[2020-07-08] MEDS: NovoLOG Insulin Flexpen SUBQ SCH ×2 (06:00)
[2020-07-08] MEDS: Midodrine 10mg tab GT SCH ×3 (06:00→20:02)
--- NOTE | 2020-07-08 06:36 | Hematology/Onc Progress Note ---
Assessment/Plan Assessment/Plan # Deep vein thrombosis of the right calf --> given onoing anemia and low plts --> consider ivc if bleeding-->if counts stable 07/08 consider placement --> once stable, for radiology and ivc filter placement # Thrombocytopenia is due to infection/underlying covid19+++ --> ABX ceftriaxone -->zosyn-->off --> on steriods likely cause of initial wbc --> per pulm --> plt 107->156-->192-->205 --> smear reviewed # Anemia due to chronic disease --> hgb goal is >7 --> transfuse prn --> ferritin is >1000 --> hold off on iron --> 10-->9.8->9-->8-->8.2-->9.4-->8.1-->9.9-->8.7-->9.7-->9.5-->8.1-->8.8->8.5 # Elevated ddimer due to covid19++ --> duplex legs is negative --> underlying covid rx # Hypoxia -> due to covid19 # Hypoxemia --> rx same as above # Respiratory failure --> on vent/trach --> per pulm # Pneumonia due to COVID-19 virus --> per pulm rx -> sp remdesivir # Diabetes mellitus out of control --> hgb a1c goal <7 # Poor prognosis # Dvt ppx lovenox sq Appreciate consultation and bowen RN Subjective Allergies: Coded Allergies: No Known Allergies (Unverified , 05/28/20) All Systems: reviewed and negative except above Subjective 06/10 nv, on vent, with ogt, on fentanyl and versed, plt stable 06/11 nv, vent adjusted is on ogt, meds reviewed 06/12 nv, vent, meds noted, labs noted, no bleeding, hgb 10.4 06/13 nv, is on vent, meds reviewed, no bleeding, cbc reviewed 06/14 nv, on vent, tachy, labs reviewed, gross hematuria, febrile overnight, abx 06/17 nv, on vent, labs noted, no major changes, feeling better overnight 06/18 nv, meds reviewed, labs noted, no major events, hgb 8.6 06/19 nv, remains intubated, with fluids, labs reviewed, meds noted 06/20 nv, intubated remains on restraints, meds noted as well, as labs 06/21 nv, remains on vent, on restraints, meds reviewed, labs noted 06/22: covering Dr. Del Cid no acute events 06/23 sedated, on vent, nv, intubated, meds reviewed, versed 06/24 nv, on vent, no night sweats, no bleeding, remains in icu 06/25 nv, on vent, icu, meds noted, no bleeding, comfortable 06/26 nv, on versed, icu, weaning parameters, labs noted 06/27 nv, overnight fighting vent, as per pulm fentanyl on board 06/28 nv, on vent, labs reviewed, as per pulm, meds noted 06/30 nv, icu, labs pending, is on fentanyl, versed, no new changes 07/01 nv, icu, is on vent, labs pending, no new changes per rn 07/02 nv, icu is on vent, labs noted, hgb is stable 07/03 nv, icu, is on vent, potential trrach when stable, cbc reviewed 07/04 icu, nv, labs are noted, stable for trach today dw Rn Dl 07/05 icu, nv, on vent, with ng and picc in place, labs noted, s/p trach 07/07 icu, nv, on tv, no bleeding, labs noted, meds reviewed 07/08 icu, nv, on tv, labs reviewed, meds noted, no bleeding Objective Objective Current Medications Medications (Trade) Dose Ordered Sig/Zelda Route PRN Reason Start Time Stop Time Status Last Admin Dose Admin Acetaminophen (Tylenol) 650 mg Q4H PRN NG Temp >100.5 06/29/20 10:15 07/29/20 10:14 07/05/20 12:45 Acetaminophen (Tylenol) 650 mg Q6H PRN NG Mild Pain (Pain Scale 1-3) 06/29/20 10:15 07/29/20 10:14 Chlorhexidine Gluconate (Inna-Hex 2%) 1 applic DAILY@1999 TOPIC 05/30/20 20:00 08/28/20 19:59 07/07/20 20:28 Dextrose (Dextrose 50%) 25 ml Q30M PRN IV Hypoglycemia 06/05/20 10:45 09/03/20 10:44 Dextrose (Dextrose 50%) 50 ml Q30M PRN IV Hypoglycemia 06/05/20 10:45 09/03/20 10:44 Enoxaparin Sodium (Lovenox) 40 mg DAILY SUBQ 05/30/20 10:00 08/28/20 09:59 07/07/20 09:12 Fentanyl Citrate 250 ml @ 1 mls/hr Q24H IV 07/07/20 19:00 07/09/20 18:59 07/07/20 19:34 Furosemide (Lasix) 40 mg DAILY IV 06/22/20 09:00 07/22/20 08:59 07/07/20 09:11 Insulin Aspart (NovoLOG) EVERY 6 HOURS SUBQ 06/07/20 00:00 09/03/20 11:59 07/06/20 06:10 Midodrine (Pro-Amatine) 10 mg Q8HR GT 06/30/20 14:00 09/12/20 13:59 07/07/20 20:28 Vitamin D (Vitamin D) 5,000 unit DAILY GT 06/28/20 09:00 07/28/20 08:59 07/06/20 08:44 Last 24 Hour Vital Signs Date Time Temp Pulse Resp B/P (MAP) Pulse Ox O2 Delivery O2 Flow Rate FiO2 07/08/20 05:27 90 16 80 07/08/20 05:19 16 85/45 Mechanical Ventilator 07/08/20 05:14 83 16 85/45 (58) 100 07/08/20 05:12 85 17 81/45 (57) 100 07/08/20 05:09 86 17 84/45 (58) 100 07/08/20 05:04 92 19 85/40 (55) 99 07/08/20 05:00 85 21 50/16 (27) 100 07/08/20 04:54 82 21 81/49 (60) 100 07/08/20 04:41 88 16 81/42 (55) 100 07/08/20 04:00 84 07/08/20 04:00 80 07/08/20 04:00 Mechanical Ventilator Mechanical Ventilator 07/08/20 04:00 98.0 83 17 94/57 (69) 100 07/08/20 03:30 86 16 97/56 (70) 98 07/08/20 03:15 87 16 80 07/08/20 03:00 78 16 92/56 (68) 100 07/08/20 02:30 78 15 90/52 (65) 100 07/08/20 02:00 78 15 90/53 (65) 100 07/08/20 01:30 80 16 91/49 (63) 100 07/08/20 01:15 80 16 80 07/08/20 01:00 81 16 94/56 (69) 100 07/08/20 00:15 79 17 100 07/08/20 00:00 99.0 80 16 94/52 (66) 100 07/08/20 00:00 Mechanical Ventilator Mechanical Ventilator 07/07/20 23:15 81 15 100 07/07/20 23:13 81 16 80 07/07/20 23:00 80 16 90/55 (67) 100 07/07/20 22:45 80 18 100 07/07/20 22:30 81 16 93/55 (68) 100 07/07/20 22:15 81 16 100 07/07/20 22:00 82 16 91/55 (67) 100 07/07/20 21:45 83 16 100 07/07/20 21:43 82 16 80 07/07/20 21:30 84 16 95/57 (70) 100 07/07/20 21:15 83 17 100 07/07/20 21:00 85 17 90/57 (68) 100 07/07/20 20:00 100 07/07/20 20:00 Mechanical Ventilator Mechanical Ventilator 07/07/20 20:00 84 07/07/20 20:00 99.8 84 18 94/55 (68) 100 07/07/20 19:34 85 16 80 07/07/20 19:34 18 93/58 07/07/20 19:15 86 20 100 07/07/20 19:00 85 18 93/54 (67) 100 07/07/20 18:00 19 91/55 Mechanical Ventilator 80 07/07/20 18:00 19 91/55 Mechanical Ventilator 80 07/07/20 18:00 84 19 91/55 (67) 100 07/07/20 17:00 19 89/58 Mechanical Ventilator 80 07/07/20 17:00 19 89/58 Mechanical Ventilator 80 07/07/20 17:00 88 19 89/58 (68) 100 07/07/20 16:25 16 94/63 Mechanical Ventilator 80 07/07/20 16:00 91 07/07/20 16:00 Mechanical Ventilator Mechanical Ventilator 07/07/20 16:00 19 94/63 Mechanical Ventilator 80 07/07/20 16:00 99.8 93 19 94/63 (73) 99 07/07/20 16:00 100 07/07/20 15:28 100 25 80 07/07/20 15:00 14 94/67 Mechanical Ventilator 80 07/07/20 15:00 97 14 94/67 (76) 99 07/07/20 14:00 101 18 109/62 (78) 99 07/07/20 14:00 18 109/62 Mechanical Ventilator 80 07/07/20 14:00 18 109/62 Mechanical Ventilator 80 07/07/20 14:00 18 109/62 Mechanical Ventilator 80 07/07/20 14:00 18 109/62 Mechanical Ventilator 80 07/07/20 14:00 18 109/62 Mechanical Ventilator 80 07/07/20 14:00 18 109/62 Mechanical Ventilator 80 07/07/20 14:00 18 109/62 Mechanical Ventilator 80 07/07/20 14:00 18 109/62 Mechanical Ventilator 80 07/07/20 14:00 18 109/62 Mechanical Ventilator 80 07/07/20 14:00 18 109/62 Mechanical Ventilator 80 07/07/20 14:00 18 109/62 Mechanical Ventilator 80 07/07/20 14:00 18 109/62 Mechanical Ventilator 80 07/07/20 13:00 103 24 109/70 (83) 99 07/07/20 13:00 24 109/70 Mechanical Ventilator 80 07/07/20 13:00 24 109/70 Mechanical Ventilator 80 07/07/20 13:00 24 109/70 Mechanical Ventilator 80 07/07/20 13:00 24 109/70 Mechanical Ventilator 80 07/07/20 13:00 24 109/70 Mechanical Ventilator 80 07/07/20 13:00 24 109/70 Mechanical Ventilator 80 07/07/20 13:00 24 109/70 Mechanical Ventilator 80 07/07/20 13:00 24 109/70 Mechanical Ventilator 80 07/07/20 13:00 24 109/70 Mechanical Ventilator 80 07/07/20 13:00 24 109/70 Mechanical Ventilator 80 07/07/20 13:00 24 109/70 80 07/07/20 13:00 24 109/70 Mechanical Ventilator 80 07/07/20 12:00 18 129/74 Mechanical Ventilator 80 07/07/20 12:00 18 129/74 Mechanical Ventilator 80 07/07/20 12:00 18 129/74 Mechanical Ventilator 80 07/07/20 12:00 18 129/74 Mechanical Ventilator 80 07/07/20 12:00 18 129/74 Mechanical Ventilator 80 07/07/20 12:00 18 129/74 Mechanical Ventilator 80 07/07/20 12:00 18 129/74 Mechanical Ventilator 80 07/07/20 12:00 18 129/74 Mechanical Ventilator 80 07/07/20 12:00 18 129/74 Mechanical Ventilator 80 07/07/20 12:00 18 129/74 Mechanical Ventilator 80 07/07/20 12:00 18 129/74 Mechanical Ventilator 80 07/07/20 12:00 18 129/74 Mechanical Ventilator 80 07/07/20 12:00 100 07/07/20 12:00 Mechanical Ventilator Mechanical Ventilator 07/07/20 12:00 100.0 102 18 129/74 (92) 100 07/07/20 11:18 115 30 80 07/07/20 11:17 106 07/07/20 11:00 26 112/71 Mechanical Ventilator 80 07/07/20 11:00 26 112/71 Mechanical Ventilator 80 07/07/20 11:00 114 26 112/71 (85) 98 07/07/20 10:00 21 116/72 Mechanical Ventilator 80 07/07/20 10:00 21 116/72 Mechanical Ventilator 80 07/07/20 10:00 116 21 116/72 (87) 95 07/07/20 09:00 118 27 103/78 (86) 93 07/07/20 09:00 27 103/78 Mechanical Ventilator 80 07/07/20 09:00 27 103/78 Mechanical Ventilator 80 07/07/20 08:00 Mechanical Ventilator Mechanical Ventilator 07/07/20 08:00 32 126/82 Mechanical Ventilator 80 07/07/20 08:00 32 126/82 Mechanical Ventilator 80 07/07/20 08:00 100.2 107 32 126/82 (97) 99 07/07/20 07:34 103 27 80 07/07/20 07:00 91 0 110/67 (81) 100 07/07/20 06:45 92 0 100 07/07/20 06:42 22 120/78 Mechanical Ventilator 07/07/20 06:30 100 29 120/78 (92) 99 07/07/20 06:30 96 22 07/07/20 06:15 102 30 100 07/07/20 06:00 104 30 100 07/07/20 06:00 95 07/07/20 06:00 100 07/07/20 06:00 104 30 100 07/07/20 05:30 109 24 111/92 (98) 88 07/07/20 05:00 102 28 96/66 (76) 97 07/07/20 04:47 95 19 98/69 (79) 96 07/07/20 04:44 94 11 79/58 (65) 96 07/07/20 04:43 98 15 84/50 (61) 96 07/07/20 04:39 97 18 80/59 (66) 94 07/07/20 04:00 100 07/07/20 04:00 95 07/07/20 04:00 97 21 106/49 (68) 93 07/07/20 04:00 100.2 95 07/07/20 04:00 Mechanical Ventilator Mechanical Ventilator 07/07/20 03:24 92 19 55 07/07/20 03:00 92 21 93/62 (72) 97 07/07/20 02:30 92 18 100/46 (64) 94 07/07/20 02:00 92 22 92/60 (71) 95 07/07/20 01:30 98 27 96/61 (73) 87 07/07/20 01:00 100 23 96/59 (71) 93 07/07/20 00:15 18 91/59 Mechanical Ventilator 07/07/20 00:00 Mechanical Ventilator Mechanical Ventilator 07/07/20 00:00 95 07/07/20 00:00 100.2 95 20 91/59 (70) 94 07/07/20 00:00 55 07/06/20 23:30 90 18 95/50 (65) 100 07/06/20 23:30 89 19 55 07/06/20 23:00 89 18 93/47 (62) 100 07/06/20 22:30 89 18 90/53 (65) 100 07/06/20 22:00 88 16 86/50 (62) 100 07/06/20 21:30 88 18 94/43 (60) 100 07/06/20 21:00 92 18 86/47 (60) 100 07/06/20 20:00 60 07/06/20 20:00 95 07/06/20 20:00 Mechanical Ventilator Mechanical Ventilator 07/06/20 20:00 101.2 98 20 86/49 (61) 95 07/06/20 19:20 102 23 60 07/06/20 19:00 102 25 87/55 (66) 96 07/06/20 18:00 96 25 98/53 (68) 97 07/06/20 18:00 25 98/53 Endotracheal Tube 80 07/06/20 18:00 25 98/53 Endotracheal Tube 80 07/06/20 17:00 94 22 98/57 (71) 95 07/06/20 17:00 22 98/57 Endotracheal Tube 80 07/06/20 17:00 22 98/57 Endotracheal Tube 80 07/06/20 16:00 Mechanical Ventilator Mechanical Ventilator 07/06/20 16:00 98.2 96 23 96/47 (63) 99 07/06/20 16:00 23 96/47 Endotracheal Tube 80 07/06/20 16:00 23 96/47 Endotracheal Tube 80 07/06/20 16:00 95 07/06/20 16:00 80 07/06/20 15:39 94 24 60 07/06/20 15:00 98 29 100/52 (68) 98 07/06/20 15:00 29 100/52 Endotracheal Tube 80 07/06/20 15:00 29 100/52 Endotracheal Tube 80 07/06/20 14:00 96 24 95/51 (66) 97 07/06/20 14:00 24 95/51 Endotracheal Tube 80 07/06/20 14:00 24 95/51 Endotracheal Tube 80 07/06/20 13:00 25 98/51 Endotracheal Tube 80 07/06/20 13:00 25 98/51 Endotracheal Tube 80 07/06/20 13:00 98 25 98/51 (67) 96 07/06/20 12:00 Mechanical Ventilator Mechanical Ventilator 07/06/20 12:00 99.8 95 24 100/55 (70) 100 07/06/20 12:00 103 07/06/20 12:00 24 100/55 Endotracheal Tube 80 07/06/20 12:00 24 100/55 Endotracheal Tube 80 07/06/20 12:00 80 07/06/20 11:26 97 27 70 07/06/20 11:00 24 89/48 Endotracheal Tube 80 07/06/20 11:00 24 89/48 Endotracheal Tube 80 07/06/20 11:00 90 24 89/48 (62) 100 07/06/20 10:00 22 89/51 Endotracheal Tube 80 07/06/20 10:00 22 89/51 Endotracheal Tube 80 07/06/20 10:00 93 22 89/51 (64) 100 07/06/20 09:00 24 97/53 Endotracheal Tube 80 07/06/20 09:00 24 97/53 Endotracheal Tube 80 07/06/20 09:00 95 24 97/53 (68) 100 07/06/20 08:00 Mechanical Ventilator Mechanical Ventilator 07/06/20 08:00 80 07/06/20 08:00 96 07/06/20 08:00 100.0 97 23 96/51 (66) 100 07/06/20 08:00 23 96/51 Endotracheal Tube 80 07/06/20 08:00 23 96/51 Endotracheal Tube 80 07/06/20 07:59 22 92/60 Endotracheal Tube 80 07/06/20 07:27 21 100/55 Mechanical Ventilator 70 07/06/20 07:26 95 23 70 07/06/20 07:00 97 25 98/55 (69) 99 07/06/20 07:00 21 111/60 Mechanical Ventilator 70 07/06/20 07:00 21 Mechanical Ventilator 70 Intake and Output 07/07/20 07/08/20 19:00 07:00 Intake Total 517.3 ml 252 ml Output Total 460 ml 225 ml Balance 57.3 ml 27 ml IV Total 517.3 ml 252 ml Output Urine Total 360 ml 225 ml Stool Total 100 ml Labs Test 07/06/20 03:30 07/06/20 06:00 07/06/20 07:35 07/07/20 09:05 White Blood Count 7.0 K/UL (4.8-10.8) 11.9 K/UL (4.8-10.8) Red Blood Count 2.52 M/UL (4.20-5.40) 2.90 M/UL (4.20-5.40) Hemoglobin 7.3 G/DL (12.0-16.0) 8.5 G/DL (12.0-16.0) Hematocrit 24.1 % (37.0-47.0) 27.5 % (37.0-47.0) Mean Corpuscular Volume 96 FL (80-99) 95 FL (80-99) Mean Corpuscular Hemoglobin 29.1 PG (27.0-31.0) 29.4 PG (27.0-31.0) Mean Corpuscular Hemoglobin Concent 30.3 G/DL (32.0-36.0) 31.0 G/DL (32.0-36.0) Red Cell Distribution Width 19.2 % (11.6-14.8) 18.4 % (11.6-14.8) Platelet Count 204 K/UL (150-450) 253 K/UL (150-450) Mean Platelet Volume 7.5 FL (6.5-10.1) 7.9 FL (6.5-10.1) Neutrophils (%) (Auto) % (45.0-75.0) 66.9 % (45.0-75.0) Lymphocytes (%) (Auto) % (20.0-45.0) 22.8 % (20.0-45.0) Monocytes (%) (Auto) % (1.0-10.0) 7.5 % (1.0-10.0) Eosinophils (%) (Auto) % (0.0-3.0) 1.5 % (0.0-3.0) Basophils (%) (Auto) % (0.0-2.0) 1.3 % (0.0-2.0) Differential Total Cells Counted 100 Neutrophils % (Manual) 53 % (45-75) Lymphocytes % (Manual) 36 % (20-45) Monocytes % (Manual) 7 % (1-10) Eosinophils % (Manual) 4 % (0-3) Basophils % (Manual) 0 % (0-2) Band Neutrophils 0 % (0-8) Platelet Estimate Adequate Platelet Morphology Normal Hypochromasia 1+ Anisocytosis 2+ Sodium Level 139 MMOL/L (136-145) Potassium Level 2.9 MMOL/L (3.5-5.1) Chloride Level 93 MMOL/L (98-107) Carbon Dioxide Level 43 MMOL/L (21-32) Anion Gap 4 mmol/L (5-15) Blood Urea Nitrogen 14 mg/dL (7-18) Creatinine 0.4 MG/DL (0.55-1.30) Estimat Glomerular Filtration Rate > 60 mL/min (>60) Glucose Level 136 MG/DL (74-106) Calcium Level 9.2 MG/DL (8.5-10.1) Phosphorus Level 2.7 MG/DL (2.5-4.9) Magnesium Level 1.8 MG/DL (1.8-2.4) Total Bilirubin 1.6 MG/DL (0.2-1.0) Direct Bilirubin 0.3 MG/DL (0.0-0.3) Aspartate Amino Transf (AST/SGOT) 31 U/L (15-37) Alanine Aminotransferase (ALT/SGPT) 23 U/L (12-78) Alkaline Phosphatase 72 U/L (46-116) Total Protein 6.9 G/DL (6.4-8.2) Albumin 2.2 G/DL (3.4-5.0) Globulin 4.7 g/dL Albumin/Globulin Ratio 0.5 (1.0-2.7) Stool Occult Blood Negative (NEGATIVE) Arterial Blood pH 7.478 (7.350-7.450) Arterial Blood Partial Pressure CO2 57.1 mmHg (35.0-45.0) Arterial Blood Partial Pressure O2 88.5 mmHg (75.0-100.0) Arterial Blood HCO3 41.4 mmol/L (22.0-26.0) Arterial Blood Oxygen Saturation 96.1 % (95-100) Arterial Blood Base Excess 16.0 (-2-2) Jeremiah Test Positive Height (Feet): 5 Height (Inches): 6.00 Weight (Pounds): 239 Objective GeNL: nv Pulm: vent/trach++ CV: rrr Abd: soft, nt, nd Ext: no cce Myron Condon MD Jul 08, 2020 06:36
[2020-07-08 06:47] LABS: HEMATOCRIT 24.2 % (37.0-47.0); HEMOGLOBIN 7.2 G/DL (12.0-16.0); MEAN CORPUSCULAR VOLUME 96 FL (80-99); PLATELET COUNT 207 K/UL (150-450); RED BLOOD COUNT 2.51 M/UL (4.20-5.40)
--- NOTE | 2020-07-08 07:12 | NUR ---
RESPIRATORY NOTE: PT received on AC/VC: 15, 600 80%,+7. At this time. FiO2 was decreased to 60%. Aniya RN was notified. Alarms are on and audible. Vent circuit is secure and out of the way. Airway is secure and patent. No s/s of respiratory distress noted at this time. Will continue to closely monitor.
--- NOTE | 2020-07-08 07:20 | NUR ---
NURSE NOTES: Report received from Jacob Quintero RN.Pt sedated noted no resp distress,with trach to vent ,settings AC 15,TV 600 Fio2 60%,Peep7,noted no resp distress,SR on the monitor,NGT to low suction,draining bile colored secretions,Lennon cath with yellow urine,skin warm and dry IV sites x2, PIV to RH 22 G SL and RT Femoral TLC intact with Fentanyl drip at 200 mcg/hr and Versed drip at 5 mg/hr.,SR up x2 ,HOB elevated bed lock in lowest position,will continue with plans of care.
[2020-07-08 07:28] LABS: ALANINE AMINOTRANSFERASE 21 U/L (12-78); ALBUMIN 2.3 G/DL (3.4-5.0); ALBUMIN/GLOBULIN RATIO 0.5 (1.0-2.7); ALKALINE PHOSPHATASE 65 U/L (46-116); ASPARTATE AMINO TRANSFERASE 32 U/L (15-37); BILIRUBIN,TOTAL 1.7 MG/DL (0.2-1.0); BLOOD UREA NITROGEN 14 mg/dL (7-18); CALCIUM 9.5 MG/DL (8.5-10.1); CARBON DIOXIDE 43 MMOL/L (21-32); CHLORIDE 97 MMOL/L (98-107); CREATININE 0.5 MG/DL (0.55-1.30); PHOSPHORUS 4.4 MG/DL (2.5-4.9); POTASSIUM 3.8 MMOL/L (3.5-5.1); SODIUM 140 MMOL/L (136-145)
[2020-07-08 07:29] LABS: BILIRUBIN,DIRECT 0.4 MG/DL (0.0-0.3)
[2020-07-08] MEDS: fentaNYL 2500mcg/NS 250ml 250 ML IV SCH ×2 (08:47→20:02)
[2020-07-08] MEDS: Vitamin D 1000 units Tab GT SCH (08:49)
[2020-07-08] MEDS: Enoxaparin 40mg Inj SUBQ SCH (09:00)
--- NOTE | 2020-07-08 09:00 | NUR ---
NURSE NOTES: Due medic Lovenox hold pt's H/H low 7.2/24.[address] Christina.
--- NOTE | 2020-07-08 09:28 | NUR ---
RESPIRATORY NOTE: FiO2 increased to 80% due to saturation dropping to 87%. PT is agitated and fighting the ventilator. Aniya ELLINGTON made schreiber of increase of FIO2.
--- NOTE | 2020-07-08 09:55 | NUR ---
NURSE NOTES: called DR Condon for H/H 7.2//24.2,awaiting return of call.
--- NOTE | 2020-07-08 10:03 | NUR ---
NURSE NOTES: Pt restless,anxious,Versed increased to 6mg/hr ,pt desaturating in the 80' FIO2 increased by RT to 80%.
--- NOTE | 2020-07-08 10:25 | NUR ---
NURSE NOTES: Aurora Christina ordered 1 unit PRBC.Pt resting quietly at this time ,no further restlessness noted,maintained on a RASS-2.
--- NOTE | 2020-07-08 10:42 | Pulmonology Progress Note ---
Subjective ROS Limited/Unobtainable: Yes Interval Events: S/p tracheostomy 07/04/20 Constitutional: Reports: fever, other - T=100 HEENT: Repors: no symptoms Respiratory: Reports: no symptoms Cardiovascular: Reports: no symptoms Gastrointestinal/Abdominal: Reports: no symptoms Genitourinary: Reports: no symptoms Allergies: Coded Allergies: No Known Allergies (Unverified , 05/28/20) All Systems: reviewed and negative except above Objective Last 24 Hour Vital Signs Date Time Temp Pulse Resp B/P (MAP) Pulse Ox O2 Delivery O2 Flow Rate FiO2 07/08/20 10:00 100 21 104/80 (88) 100 07/08/20 10:00 21 104/80 Mechanical Ventilator 80 07/08/20 10:00 21 104/80 Mechanical Ventilator 80 07/08/20 09:00 100 21 108/72 (84) 100 07/08/20 09:00 21 108/72 Mechanical Ventilator 60 07/08/20 09:00 21 108/72 Mechanical Ventilator 60 07/08/20 08:47 18 88/51 Mechanical Ventilator 60 07/08/20 08:00 Mechanical Ventilator Mechanical Ventilator 07/08/20 08:00 18 88/51 Mechanical Ventilator 60 07/08/20 08:00 18 88/55 Mechanical Ventilator 60 07/08/20 08:00 60 07/08/20 08:00 79 07/08/20 08:00 98.0 78 18 88/55 (66) 96 07/08/20 07:49 19 91/48 Mechanical Ventilator 60 07/08/20 07:00 76 16 86/52 (63) 100 07/08/20 07:00 19 91/48 Mechanical Ventilator 60 07/08/20 06:30 79 20 89/55 (66) 100 07/08/20 06:00 80 17 87/50 (62) 100 07/08/20 06:00 80 17 07/08/20 05:27 90 16 80 07/08/20 05:19 16 85/45 Mechanical Ventilator 07/08/20 05:14 83 16 85/45 (58) 100 07/08/20 05:12 85 17 81/45 (57) 100 07/08/20 05:09 86 17 84/45 (58) 100 07/08/20 05:04 92 19 85/40 (55) 99 07/08/20 05:00 85 21 50/16 (27) 100 07/08/20 04:54 82 21 81/49 (60) 100 07/08/20 04:41 88 16 81/42 (55) 100 07/08/20 04:00 84 07/08/20 04:00 80 07/08/20 04:00 Mechanical Ventilator Mechanical Ventilator 07/08/20 04:00 98.0 83 17 94/57 (69) 100 07/08/20 03:30 86 16 97/56 (70) 98 07/08/20 03:15 87 16 80 07/08/20 03:00 78 16 92/56 (68) 100 07/08/20 02:30 78 15 90/52 (65) 100 07/08/20 02:00 78 15 90/53 (65) 100 07/08/20 01:30 80 16 91/49 (63) 100 07/08/20 01:15 80 16 80 07/08/20 01:00 81 16 94/56 (69) 100 07/08/20 00:15 79 17 100 07/08/20 00:00 99.0 80 16 94/52 (66) 100 07/08/20 00:00 Mechanical Ventilator Mechanical Ventilator 07/07/20 23:15 81 15 100 07/07/20 23:13 81 16 80 07/07/20 23:00 80 16 90/55 (67) 100 07/07/20 22:45 80 18 100 07/07/20 22:30 81 16 93/55 (68) 100 07/07/20 22:15 81 16 100 07/07/20 22:00 82 16 91/55 (67) 100 07/07/20 21:45 83 16 100 07/07/20 21:43 82 16 80 07/07/20 21:30 84 16 95/57 (70) 100 07/07/20 21:15 83 17 100 07/07/20 21:00 85 17 90/57 (68) 100 07/07/20 20:00 100 07/07/20 20:00 Mechanical Ventilator Mechanical Ventilator 07/07/20 20:00 84 07/07/20 20:00 99.8 84 18 94/55 (68) 100 07/07/20 19:34 85 16 80 07/07/20 19:34 18 93/58 07/07/20 19:15 86 20 100 07/07/20 19:00 85 18 93/54 (67) 100 07/07/20 18:00 19 91/55 Mechanical Ventilator 80 07/07/20 18:00 19 91/55 Mechanical Ventilator 80 07/07/20 18:00 84 19 91/55 (67) 100 07/07/20 17:00 19 89/58 Mechanical Ventilator 80 07/07/20 17:00 19 89/58 Mechanical Ventilator 80 07/07/20 17:00 88 19 89/58 (68) 100 07/07/20 16:25 16 94/63 Mechanical Ventilator 80 07/07/20 16:00 91 07/07/20 16:00 Mechanical Ventilator Mechanical Ventilator 07/07/20 16:00 19 94/63 Mechanical Ventilator 80 07/07/20 16:00 99.8 93 19 94/63 (73) 99 07/07/20 16:00 100 07/07/20 15:28 100 25 80 07/07/20 15:00 14 94/67 Mechanical Ventilator 80 07/07/20 15:00 97 14 94/67 (76) 99 07/07/20 14:00 101 18 109/62 (78) 99 07/07/20 14:00 18 109/62 Mechanical Ventilator 80 07/07/20 14:00 18 109/62 Mechanical Ventilator 80 07/07/20 14:00 18 109/62 Mechanical Ventilator 80 07/07/20 14:00 18 109/62 Mechanical Ventilator 80 07/07/20 14:00 18 109/62 Mechanical Ventilator 80 07/07/20 14:00 18 109/62 Mechanical Ventilator 80 07/07/20 14:00 18 109/62 Mechanical Ventilator 80 07/07/20 14:00 18 109/62 Mechanical Ventilator 80 07/07/20 14:00 18 109/62 Mechanical Ventilator 80 07/07/20 14:00 18 109/62 Mechanical Ventilator 80 07/07/20 14:00 18 109/62 Mechanical Ventilator 80 07/07/20 14:00 18 109/62 Mechanical Ventilator 80 07/07/20 13:00 103 24 109/70 (83) 99 07/07/20 13:00 24 109/70 Mechanical Ventilator 80 07/07/20 13:00 24 109/70 Mechanical Ventilator 80 07/07/20 13:00 24 109/70 Mechanical Ventilator 80 07/07/20 13:00 24 109/70 Mechanical Ventilator 80 07/07/20 13:00 24 109/70 Mechanical Ventilator 80 07/07/20 13:00 24 109/70 Mechanical Ventilator 80 07/07/20 13:00 24 109/70 Mechanical Ventilator 80 07/07/20 13:00 24 109/70 Mechanical Ventilator 80 07/07/20 13:00 24 109/70 Mechanical Ventilator 80 07/07/20 13:00 24 109/70 Mechanical Ventilator 80 07/07/20 13:00 24 109/70 80 07/07/20 13:00 24 109/70 Mechanical Ventilator 80 07/07/20 12:00 18 129/74 Mechanical Ventilator 80 07/07/20 12:00 18 129/74 Mechanical Ventilator 80 07/07/20 12:00 18 129/74 Mechanical Ventilator 80 07/07/20 12:00 18 129/74 Mechanical Ventilator 80 07/07/20 12:00 18 129/74 Mechanical Ventilator 80 07/07/20 12:00 18 129/74 Mechanical Ventilator 80 07/07/20 12:00 18 129/74 Mechanical Ventilator 80 07/07/20 12:00 18 129/74 Mechanical Ventilator 80 07/07/20 12:00 18 129/74 Mechanical Ventilator 80 07/07/20 12:00 18 129/74 Mechanical Ventilator 80 07/07/20 12:00 18 129/74 Mechanical Ventilator 80 07/07/20 12:00 18 129/74 Mechanical Ventilator 80 07/07/20 12:00 100 07/07/20 12:00 Mechanical Ventilator Mechanical Ventilator 07/07/20 12:00 100.0 102 18 129/74 (92) 100 07/07/20 11:18 115 30 80 07/07/20 11:17 106 07/07/20 11:00 26 112/71 Mechanical Ventilator 80 07/07/20 11:00 26 112/71 Mechanical Ventilator 80 07/07/20 11:00 114 26 112/71 (85) 98 Intake and Output 07/07/20 07/08/20 19:00 07:00 Intake Total 517.3 ml 408 ml Output Total 460 ml 280 ml Balance 57.3 ml 128 ml IV Total 517.3 ml 408 ml Output Urine Total 360 ml 280 ml Stool Total 100 ml # Bowel Movements 50 General Appearance: no acute distress HEENT: normocephalic, status post trach Respiratory: chest wall non-tender Cardiovascular: normal peripheral pulses Abdomen: normal bowel sounds Laboratory Tests 07/08/20 05:29: White Blood Count 8.0, Red Blood Count 2.51L, Hemoglobin 7.2L, Hematocrit 24.2L, Mean Corpuscular Volume 96, Mean Corpuscular Hemoglobin 28.6, Mean Corpuscular Hemoglobin Concent 29.7L, Red Cell Distribution Width 19.0H, Platelet Count 207, Mean Platelet Volume 8.1, Neutrophils (%) (Auto) , Lymphocytes (%) (Auto) , Monocytes (%) (Auto) , Eosinophils (%) (Auto) , Basophils (%) (Auto) , Differential Total Cells Counted 100, Neutrophils % (Manual) 53, Lymphocytes % ( Manual) 27, Monocytes % (Manual) 13H, Eosinophils % (Manual) 7H, Basophils % (Manual) 0, Band Neutrophils 0, Platelet Estimate Adequate, Platelet Morphology Normal, Polychromasia 1+, Hypochromasia 1+, Anisocytosis 2+, Stomatocytes Occasional, Sodium Level 140, Potassium Level 3.8, Chloride Level 97L, Carbon D ioxide Level 43*H, Blood Urea Nitrogen 14, Creatinine 0.5L, Estimat Glomerular Filtration Rate > 60, Glucose Level 95, Uric Acid 2.6, Calcium Level 9.5, Phosphorus Level 4.4, Magnesium Level 1.9, Total Bilirubin 1.7H, Direct Bilirubin 0.4H, Aspartate Amino Transf (AST/SGOT) 32, Alanine Aminotransferase (ALT/SGPT) 21, Alkaline Phosphatase 65, C-Reactive Protein, Quantitative 27.2H, Pro-B-Type Natriuretic Peptide 757H, Total Protein 7.2, Albumin 2.3L, Globulin 4.9, Albumin/Globulin Ratio 0.5L Current Medications Medications (Trade) Dose Ordered Sig/Zelda Route PRN Reason Start Time Stop Time Status Last Admin Dose Admin Acetaminophen (Tylenol) 650 mg Q4H PRN NG Temp >100.5 06/29/20 10:15 07/29/20 10:14 07/05/20 12:45 Acetaminophen (Tylenol) 650 mg Q6H PRN NG Mild Pain (Pain Scale 1-3) 06/29/20 10:15 07/29/20 10:14 Chlorhexidine Gluconate (Inna-Hex 2%) 1 applic DAILY@1999 TOPIC 05/30/20 20:00 08/28/20 19:59 07/07/20 20:28 Dextrose (Dextrose 50%) 25 ml Q30M PRN IV Hypoglycemia 06/05/20 10:45 09/03/20 10:44 Dextrose (Dextrose 50%) 50 ml Q30M PRN IV Hypoglycemia 06/05/20 10:45 09/03/20 10:44 Enoxaparin Sodium (Lovenox) 40 mg DAILY SUBQ 05/30/20 10:00 08/28/20 09:59 07/07/20 09:12 Fentanyl Citrate 250 ml @ 1 mls/hr Q24H IV 07/07/20 19:00 07/09/20 18:59 07/08/20 08:47 Furosemide (Lasix) 40 mg DAILY IV 06/22/20 09:00 07/22/20 08:59 07/08/20 08:49 Insulin Aspart (NovoLOG) EVERY 6 HOURS SUBQ 06/07/20 00:00 09/03/20 11:59 07/06/20 06:10 Midazolam HCl 200 ml @ 0 mls/hr Q24H PRN IV Agitation 07/08/20 07:00 07/15/20 06:59 07/08/20 07:49 Midodrine (Pro-Amatine) 10 mg Q8HR GT 06/30/20 14:00 09/12/20 13:59 07/08/20 06:00 Vitamin D (Vitamin D) 5,000 unit DAILY GT 06/28/20 09:00 07/28/20 08:59 07/08/20 08:49 Assessment/Plan Assessment/Plan 1. COVID-19 pneumonia -Intubated 05/28/20 - We will continue broad-spectrum antibiotics. -s/p solumedrol, Rocephin -Continue PEEP 6 ->7 - Peak airway pressures high; 42 - FiO2 100% -> 90 ->80->60 ->40 ->80 ->100 ->80 -70; now back up to 80% -will continue OGT feeding -Continue sedation; Need to keep patient completely sedated. 2. Hyponatremia -Per primary MD 3. Elevated inflammatory markers - has high D dimer; Lovenox re-started 4. Decrease PEEP Continue weaning efforts S/p trach Discussed with surgery Off IV fluids Tirmizi,Javier Derick MD Jul 08, 2020 10:42
--- NOTE | 2020-07-08 10:45 | NUR ---
RESPIRATORY NOTE: ABG drawn at this time. Results reported to Aniya ELLINGTON.
--- NOTE | 2020-07-08 11:35 | NUR ---
NURSE NOTES: call placed to Dr Nava re ABG results,awaiting return of call.
--- NOTE | 2020-07-08 11:41 | NUR ---
NURSE NOTES: Dr Nava informed re ZORAIDA hernandez,ordered to keep same vent settings with FIO2 80%.
--- NOTE | 2020-07-08 11:47 | Infectious Diseases Prog Note ---
Assessment/Plan Assessment/Plan antibiotics : none A 1. covid 19 pneumonia on 80 % Fi O2 with 95 % saturation s/p remdesivir s/p solumedrol 2. respiratory failure 3. serratia pneumonia s/p rx P 1. continue off antibiotics 2. continue isolation Subjective ROS Limited/Unobtainable: Yes Allergies: Coded Allergies: No Known Allergies (Unverified , 05/28/20) Objective Last 24 Hour Vital Signs Date Time Temp Pulse Resp B/P (MAP) Pulse Ox O2 Delivery O2 Flow Rate FiO2 07/08/20 11:00 21 117/67 Mechanical Ventilator 80 07/08/20 11:00 29 117/67 Mechanical Ventilator 80 07/08/20 11:00 105 17 117/67 (84) 95 07/08/20 10:00 100 21 104/80 (88) 100 07/08/20 10:00 21 104/80 Mechanical Ventilator 80 07/08/20 10:00 21 104/80 Mechanical Ventilator 80 07/08/20 09:28 106 26 80 07/08/20 09:00 100 21 108/72 (84) 100 07/08/20 09:00 21 108/72 Mechanical Ventilator 60 07/08/20 09:00 21 108/72 Mechanical Ventilator 60 07/08/20 08:47 18 88/51 Mechanical Ventilator 60 07/08/20 08:00 Mechanical Ventilator Mechanical Ventilator 07/08/20 08:00 18 88/51 Mechanical Ventilator 60 07/08/20 08:00 18 88/55 Mechanical Ventilator 60 07/08/20 08:00 60 07/08/20 08:00 79 07/08/20 08:00 98.0 78 18 88/55 (66) 96 07/08/20 07:49 19 91/48 Mechanical Ventilator 60 07/08/20 07:12 79 15 60 07/08/20 07:00 76 16 86/52 (63) 100 07/08/20 07:00 19 91/48 Mechanical Ventilator 60 07/08/20 06:30 79 20 89/55 (66) 100 07/08/20 06:00 80 17 87/50 (62) 100 07/08/20 06:00 80 17 07/08/20 05:27 90 16 80 07/08/20 05:19 16 85/45 Mechanical Ventilator 07/08/20 05:14 83 16 85/45 (58) 100 07/08/20 05:12 85 17 81/45 (57) 100 07/08/20 05:09 86 17 84/45 (58) 100 07/08/20 05:04 92 19 85/40 (55) 99 07/08/20 05:00 85 21 50/16 (27) 100 07/08/20 04:54 82 21 81/49 (60) 100 07/08/20 04:41 88 16 81/42 (55) 100 07/08/20 04:00 84 07/08/20 04:00 80 07/08/20 04:00 Mechanical Ventilator Mechanical Ventilator 07/08/20 04:00 98.0 83 17 94/57 (69) 100 07/08/20 03:30 86 16 97/56 (70) 98 07/08/20 03:15 87 16 80 07/08/20 03:00 78 16 92/56 (68) 100 07/08/20 02:30 78 15 90/52 (65) 100 07/08/20 02:00 78 15 90/53 (65) 100 07/08/20 01:30 80 16 91/49 (63) 100 07/08/20 01:15 80 16 80 07/08/20 01:00 81 16 94/56 (69) 100 07/08/20 00:15 79 17 100 07/08/20 00:00 99.0 80 16 94/52 (66) 100 07/08/20 00:00 Mechanical Ventilator Mechanical Ventilator 07/07/20 23:15 81 15 100 07/07/20 23:13 81 16 80 07/07/20 23:00 80 16 90/55 (67) 100 07/07/20 22:45 80 18 100 07/07/20 22:30 81 16 93/55 (68) 100 07/07/20 22:15 81 16 100 07/07/20 22:00 82 16 91/55 (67) 100 07/07/20 21:45 83 16 100 07/07/20 21:43 82 16 80 07/07/20 21:30 84 16 95/57 (70) 100 07/07/20 21:15 83 17 100 07/07/20 21:00 85 17 90/57 (68) 100 07/07/20 20:00 100 07/07/20 20:00 Mechanical Ventilator Mechanical Ventilator 07/07/20 20:00 84 07/07/20 20:00 99.8 84 18 94/55 (68) 100 07/07/20 19:34 85 16 80 07/07/20 19:34 18 93/58 07/07/20 19:15 86 20 100 07/07/20 19:00 85 18 93/54 (67) 100 07/07/20 18:00 19 91/55 Mechanical Ventilator 80 07/07/20 18:00 19 91/55 Mechanical Ventilator 80 07/07/20 18:00 84 19 91/55 (67) 100 07/07/20 17:00 19 89/58 Mechanical Ventilator 80 07/07/20 17:00 19 89/58 Mechanical Ventilator 80 07/07/20 17:00 88 19 89/58 (68) 100 07/07/20 16:25 16 94/63 Mechanical Ventilator 80 07/07/20 16:00 91 07/07/20 16:00 Mechanical Ventilator Mechanical Ventilator 07/07/20 16:00 19 94/63 Mechanical Ventilator 80 07/07/20 16:00 99.8 93 19 94/63 (73) 99 07/07/20 16:00 100 07/07/20 15:28 100 25 80 07/07/20 15:00 14 94/67 Mechanical Ventilator 80 07/07/20 15:00 97 14 94/67 (76) 99 07/07/20 14:00 101 18 109/62 (78) 99 07/07/20 14:00 18 109/62 Mechanical Ventilator 80 07/07/20 14:00 18 109/62 Mechanical Ventilator 80 07/07/20 14:00 18 109/62 Mechanical Ventilator 80 07/07/20 14:00 18 109/62 Mechanical Ventilator 80 07/07/20 14:00 18 109/62 Mechanical Ventilator 80 07/07/20 14:00 18 109/62 Mechanical Ventilator 80 07/07/20 14:00 18 109/62 Mechanical Ventilator 80 07/07/20 14:00 18 109/62 Mechanical Ventilator 80 07/07/20 14:00 18 109/62 Mechanical Ventilator 80 07/07/20 14:00 18 109/62 Mechanical Ventilator 80 07/07/20 14:00 18 109/62 Mechanical Ventilator 80 07/07/20 14:00 18 109/62 Mechanical Ventilator 80 07/07/20 13:00 103 24 109/70 (83) 99 07/07/20 13:00 24 109/70 Mechanical Ventilator 80 07/07/20 13:00 24 109/70 Mechanical Ventilator 80 07/07/20 13:00 24 109/70 Mechanical Ventilator 80 07/07/20 13:00 24 109/70 Mechanical Ventilator 80 07/07/20 13:00 24 109/70 Mechanical Ventilator 80 07/07/20 13:00 24 109/70 Mechanical Ventilator 80 07/07/20 13:00 24 109/70 Mechanical Ventilator 80 07/07/20 13:00 24 109/70 Mechanical Ventilator 80 07/07/20 13:00 24 109/70 Mechanical Ventilator 80 07/07/20 13:00 24 109/70 Mechanical Ventilator 80 07/07/20 13:00 24 109/70 80 07/07/20 13:00 24 109/70 Mechanical Ventilator 80 07/07/20 12:00 18 129/74 Mechanical Ventilator 80 07/07/20 12:00 18 129/74 Mechanical Ventilator 80 07/07/20 12:00 18 129/74 Mechanical Ventilator 80 07/07/20 12:00 18 129/74 Mechanical Ventilator 80 07/07/20 12:00 18 129/74 Mechanical Ventilator 80 07/07/20 12:00 18 129/74 Mechanical Ventilator 80 07/07/20 12:00 18 129/74 Mechanical Ventilator 80 07/07/20 12:00 18 129/74 Mechanical Ventilator 80 07/07/20 12:00 18 129/74 Mechanical Ventilator 80 07/07/20 12:00 18 129/74 Mechanical Ventilator 80 07/07/20 12:00 18 129/74 Mechanical Ventilator 80 07/07/20 12:00 18 129/74 Mechanical Ventilator 80 07/07/20 12:00 100 07/07/20 12:00 Mechanical Ventilator Mechanical Ventilator 07/07/20 12:00 100.0 102 18 129/74 (92) 100 Height (Feet): 5 Height (Inches): 6.00 Weight (Pounds): 239 Laboratory Tests Test 07/08/20 05:29 07/08/20 10:45 White Blood Count 8.0 K/UL (4.8-10.8) Red Blood Count 2.51 M/UL (4.20-5.40) L Hemoglobin 7.2 G/DL (12.0-16.0) L Hematocrit 24.2 % (37.0-47.0) L Mean Corpuscular Volume 96 FL (80-99) Mean Corpuscular Hemoglobin 28.6 PG (27.0-31.0) Mean Corpuscular Hemoglobin Concent 29.7 G/DL (32.0-36.0) L Red Cell Distribution Width 19.0 % (11.6-14.8) H Platelet Count 207 K/UL (150-450) Mean Platelet Volume 8.1 FL (6.5-10.1) Neutrophils (%) (Auto) % (45.0-75.0) Lymphocytes (%) (Auto) % (20.0-45.0) Monocytes (%) (Auto) % (1.0-10.0) Eosinophils (%) (Auto) % (0.0-3.0) Basophils (%) (Auto) % (0.0-2.0) Differential Total Cells Counted 100 Neutrophils % (Manual) 53 % (45-75) Lymphocytes % (Manual) 27 % (20-45) Monocytes % (Manual) 13 % (1-10) H Eosinophils % (Manual) 7 % (0-3) H Basophils % (Manual) 0 % (0-2) Band Neutrophils 0 % (0-8) Platelet Estimate Adequate Platelet Morphology Normal Polychromasia 1+ Hypochromasia 1+ Anisocytosis 2+ Stomatocytes Occasional Sodium Level 140 MMOL/L (136-145) Potassium Level 3.8 MMOL/L (3.5-5.1) Chloride Level 97 MMOL/L (98-107) L Carbon Dioxide Level 43 MMOL/L (21-32) *H Blood Urea Nitrogen 14 mg/dL (7-18) Creatinine 0.5 MG/DL (0.55-1.30) L Estimat Glomerular Filtration Rate > 60 mL/min (>60) Glucose Level 95 MG/DL (74-106) Uric Acid 2.6 MG/DL (2.6-7.2) Calcium Level 9.5 MG/DL (8.5-10.1) Phosphorus Level 4.4 MG/DL (2.5-4.9) Magnesium Level 1.9 MG/DL (1.8-2.4) Total Bilirubin 1.7 MG/DL (0.2-1.0) H Direct Bilirubin 0.4 MG/DL (0.0-0.3) H Aspartate Amino Transf (AST/SGOT) 32 U/L (15-37) Alanine Aminotransferase (ALT/SGPT) 21 U/L (12-78) Alkaline Phosphatase 65 U/L (46-116) C-Reactive Protein, Quantitative 27.2 mg/dL (0.00-0.90) H Pro-B-Type Natriuretic Peptide 757 pg/mL (0-125) H Total Protein 7.2 G/DL (6.4-8.2) Albumin 2.3 G/DL (3.4-5.0) L Globulin 4.9 g/dL Albumin/Globulin Ratio 0.5 (1.0-2.7) L Arterial Blood pH 7.402 (7.350-7.450) Arterial Blood Partial Pressure CO2 81.4 mmHg (35.0-45.0) *H Arterial Blood Partial Pressure O2 75.7 mmHg (75.0-100.0) Arterial Blood HCO3 49.5 mmol/L (22.0-26.0) *H Arterial Blood Oxygen Saturation 94.1 % (95-100) L Arterial Blood Base Excess 22.0 (-2-2) *H Jeremiah Test Positive Current Medications Medications (Trade) Dose Ordered Sig/Zelda Route PRN Reason Start Time Stop Time Status Last Admin Dose Admin Acetaminophen (Tylenol) 650 mg Q4H PRN NG Temp >100.5 06/29/20 10:15 07/29/20 10:14 07/05/20 12:45 Acetaminophen (Tylenol) 650 mg Q6H PRN NG Mild Pain (Pain Scale 1-3) 06/29/20 10:15 07/29/20 10:14 Chlorhexidine Gluconate (Inna-Hex 2%) 1 applic DAILY@2000 TOPIC 05/30/20 20:00 08/28/20 19:59 07/07/20 20:28 Dextrose (Dextrose 50%) 25 ml Q30M PRN IV Hypoglycemia 06/05/20 10:45 09/03/20 10:44 Dextrose (Dextrose 50%) 50 ml Q30M PRN IV Hypoglycemia 06/05/20 10:45 09/03/20 10:44 Enoxaparin Sodium (Lovenox) 40 mg DAILY SUBQ 05/30/20 10:00 08/28/20 09:59 07/07/20 09:12 Fentanyl Citrate 250 ml @ 1 mls/hr Q24H IV 07/07/20 19:00 07/09/20 18:59 07/08/20 08:47 Furosemide (Lasix) 40 mg DAILY IV 06/22/20 09:00 07/22/20 08:59 07/08/20 08:49 Insulin Aspart (NovoLOG) EVERY 6 HOURS SUBQ 06/07/20 00:00 09/03/20 11:59 07/06/20 06:10 Midazolam HCl 200 ml @ 0 mls/hr Q24H PRN IV Agitation 07/08/20 07:00 07/15/20 06:59 07/08/20 07:49 Midodrine (Pro-Amatine) 10 mg Q8HR GT 06/30/20 14:00 09/12/20 13:59 07/08/20 06:00 Vitamin D (Vitamin D) 5,000 unit DAILY GT 06/28/20 09:00 07/28/20 08:59 07/08/20 08:49 Fili Mcelroy MD Jul 08, 2020 11:47
--- NOTE | 2020-07-08 11:57 | Nephrology Progress Note ---
Assessment/Plan Problem List: (1) DEVENDRA (acute kidney injury) (2) Morbid obesity (3) Diabetes mellitus out of control (4) Pneumonia due to COVID-19 virus (5) Respiratory failure Assessment Acute renal failure Obstructive uropathy, clogged Lennon Respiratory failure COVID-19 pneumonia Morbid obesity Plan July 08: Labs reviewed. Renal parameters and electrolytes stable. ABG suggestive of high PCO2. At this time patient is on FiO2 of 80%. Continue per pulmonary. Continue to monitor renal parameters. July 07: No CHEM panel drawn today. More potassium given. Continue to monitor renal parameters. Continue per consultants. Discussed with RAKEL Veras. July 06: Low potassium addressed. Albumin bolus for low BP given. Patient remains full code. Continue to monitor electrolytes and renal parameters. C ontinue per consultants. Hemoglobin low today, transfusion per vending machine filler. July 05: Trach to vent. FiO2 80%. Renal parameters stable. PCO2 remains high at 44. Continue to monitor renal parameters. July 04: Patient now trach. Full code. Labs reviewed. Renal parameters stable. Low magnesium addressed. July 03: Intubated. Full code. Labs reviewed. Abnormal electrolytes addressed. Continue per consultants. Overall status unchanged. July 02: Remains intubated. Remains full code. Remains on FiO2 of 70%. Labs reviewed. Abnormal electrolytes addressed. Continue per pulmonary. July 01: Remains on 70% FiO2. Full code. Intubated on ventilator. Retaining CO2. Discussed with RN. Will do ABG today. Albumin bolus given. 1 dose of Diamox given. June 30: Status quo. Labs reviewed. Abnormal electrolytes addressed. Remains full code. Remains on ventilator. Magnesium sulfate 4 gram IVPB given. June 29: Full code. Intubated on ventilator. Labs reviewed. Stable from renal standpoint of view. Continue per consultants. June 28: Remains full code. Remains intubated on ventilator. Labs reviewed. Vitamin D supplement ordered. Continue to monitor renal parameters. Continue per consultants. June 27: Remains full code. Intubated on ventilator. Labs reviewed. Abnormal electrolyte addressed. Continue to monitor renal parameters and electrolytes. Continue per consultants. June 26: Labs reviewed. Remains full code. Remains intubated. Back on NGT feeding. Continue to monitor renal parameters. June 25: Labs reviewed. Renal parameters stable. Remains full code. Due to positional status patient could not be fed via NG tube. Starting TPN? Is being entertained. Continue per consultants. June 24: Labs reviewed. Renal parameters stable. Remains full code. Remains intubated on ventilator. Continue per consultants. June 23: Labs reviewed. Renal parameters stable. Discussed with RN. Abnormal electrolyte addressed. Remains full code. Remains on ventilator. Continue per consultants. June 22: Labs reviewed. Low potassium addressed. Discussed with RAKEL Moran. Patient full code. Remains on ventilator. Continue to monitor renal parameters. June 21. Labs reviewed. Abnormal electrolyte addressed. Full code. Remains on ventilator. Medication list reviewed. Continue per pulmonary management. DC IV fluid, resume Lasix daily, check chest x-ray. June 20: Labs reviewed. Abnormal electrolytes. Patient remains full code. Continue per consultants. Noted and addressed June 19: Labs reviewed. Abnormal electrolytes noted and addressed. Remains intubated on ventilator. Remains full code. June 18: Labs reviewed. Remains intubated on ventilator. Full code. Abnormal electrolyte addressed. Continue as is. June 17: Labs reviewed. Abnormal electrolytes addressed. Patient remains full code and intubated on ventilator. Continue per consultants. Renal parameters are within normal limits. June 16: Labs reviewed. Potassium chloride replaced. Remains full code. Remains intubated on ventilator. Continue per consultants. Continue to monitor renal parameters. June 15: Labs reviewed. Serum creatinine 1. Stable from renal standpoint to view. Continue per consultants. June 14: Labs reviewed. Full code. Serum creatinine of 3.5 down to 1.4. Low potassium addressed. Continue per current treatment plan. Continue to monitor renal parameters. Midodrine started. Albumin bolus given. Previously: DC Lasix drip Increase Protonix dose Monitor renal parameters, electrolytes Per orders Subjective ROS Limited/Unobtainable: Yes Objective Objective Last 24 Hour Vital Signs Date Time Temp Pulse Resp B/P (MAP) Pulse Ox O2 Delivery O2 Flow Rate FiO2 07/08/20 11:00 21 117/67 Mechanical Ventilator 80 07/08/20 11:00 29 117/67 Mechanical Ventilator 80 07/08/20 11:00 105 17 117/67 (84) 95 07/08/20 10:00 100 21 104/80 (88) 100 07/08/20 10:00 21 104/80 Mechanical Ventilator 80 07/08/20 10:00 21 104/80 Mechanical Ventilator 80 07/08/20 09:28 106 26 80 07/08/20 09:00 100 21 108/72 (84) 100 07/08/20 09:00 21 108/72 Mechanical Ventilator 60 07/08/20 09:00 21 108/72 Mechanical Ventilator 60 07/08/20 08:47 18 88/51 Mechanical Ventilator 60 07/08/20 08:00 Mechanical Ventilator Mechanical Ventilator 07/08/20 08:00 18 88/51 Mechanical Ventilator 60 07/08/20 08:00 18 88/55 Mechanical Ventilator 60 07/08/20 08:00 60 07/08/20 08:00 79 07/08/20 08:00 98.0 78 18 88/55 (66) 96 07/08/20 07:49 19 91/48 Mechanical Ventilator 60 07/08/20 07:12 79 15 60 07/08/20 07:00 76 16 86/52 (63) 100 07/08/20 07:00 19 91/48 Mechanical Ventilator 60 07/08/20 06:30 79 20 89/55 (66) 100 07/08/20 06:00 80 17 87/50 (62) 100 07/08/20 06:00 80 17 07/08/20 05:27 90 16 80 07/08/20 05:19 16 85/45 Mechanical Ventilator 07/08/20 05:14 83 16 85/45 (58) 100 07/08/20 05:12 85 17 81/45 (57) 100 07/08/20 05:09 86 17 84/45 (58) 100 07/08/20 05:04 92 19 85/40 (55) 99 07/08/20 05:00 85 21 50/16 (27) 100 07/08/20 04:54 82 21 81/49 (60) 100 07/08/20 04:41 88 16 81/42 (55) 100 07/08/20 04:00 84 07/08/20 04:00 80 07/08/20 04:00 Mechanical Ventilator Mechanical Ventilator 07/08/20 04:00 98.0 83 17 94/57 (69) 100 07/08/20 03:30 86 16 97/56 (70) 98 07/08/20 03:15 87 16 80 07/08/20 03:00 78 16 92/56 (68) 100 07/08/20 02:30 78 15 90/52 (65) 100 07/08/20 02:00 78 15 90/53 (65) 100 07/08/20 01:30 80 16 91/49 (63) 100 07/08/20 01:15 80 16 80 07/08/20 01:00 81 16 94/56 (69) 100 07/08/20 00:15 79 17 100 07/08/20 00:00 99.0 80 16 94/52 (66) 100 07/08/20 00:00 Mechanical Ventilator Mechanical Ventilator 07/07/20 23:15 81 15 100 07/07/20 23:13 81 16 80 07/07/20 23:00 80 16 90/55 (67) 100 07/07/20 22:45 80 18 100 07/07/20 22:30 81 16 93/55 (68) 100 07/07/20 22:15 81 16 100 07/07/20 22:00 82 16 91/55 (67) 100 07/07/20 21:45 83 16 100 07/07/20 21:43 82 16 80 07/07/20 21:30 84 16 95/57 (70) 100 07/07/20 21:15 83 17 100 07/07/20 21:00 85 17 90/57 (68) 100 07/07/20 20:00 100 07/07/20 20:00 Mechanical Ventilator Mechanical Ventilator 07/07/20 20:00 84 07/07/20 20:00 99.8 84 18 94/55 (68) 100 07/07/20 19:34 85 16 80 07/07/20 19:34 18 93/58 07/07/20 19:15 86 20 100 07/07/20 19:00 85 18 93/54 (67) 100 07/07/20 18:00 19 91/55 Mechanical Ventilator 80 07/07/20 18:00 19 91/55 Mechanical Ventilator 80 07/07/20 18:00 84 19 91/55 (67) 100 07/07/20 17:00 19 89/58 Mechanical Ventilator 80 07/07/20 17:00 19 89/58 Mechanical Ventilator 80 07/07/20 17:00 88 19 89/58 (68) 100 07/07/20 16:25 16 94/63 Mechanical Ventilator 80 07/07/20 16:00 91 07/07/20 16:00 Mechanical Ventilator Mechanical Ventilator 07/07/20 16:00 19 94/63 Mechanical Ventilator 80 07/07/20 16:00 99.8 93 19 94/63 (73) 99 07/07/20 16:00 100 07/07/20 15:28 100 25 80 07/07/20 15:00 14 94/67 Mechanical Ventilator 80 07/07/20 15:00 97 14 94/67 (76) 99 07/07/20 14:00 101 18 109/62 (78) 99 07/07/20 14:00 18 109/62 Mechanical Ventilator 80 07/07/20 14:00 18 109/62 Mechanical Ventilator 80 07/07/20 14:00 18 109/62 Mechanical Ventilator 80 07/07/20 14:00 18 109/62 Mechanical Ventilator 80 07/07/20 14:00 18 109/62 Mechanical Ventilator 80 07/07/20 14:00 18 109/62 Mechanical Ventilator 80 07/07/20 14:00 18 109/62 Mechanical Ventilator 80 07/07/20 14:00 18 109/62 Mechanical Ventilator 80 07/07/20 14:00 18 109/62 Mechanical Ventilator 80 07/07/20 14:00 18 109/62 Mechanical Ventilator 80 07/07/20 14:00 18 109/62 Mechanical Ventilator 80 07/07/20 14:00 18 109/62 Mechanical Ventilator 80 07/07/20 13:00 103 24 109/70 (83) 99 07/07/20 13:00 24 109/70 Mechanical Ventilator 80 07/07/20 13:00 24 109/70 Mechanical Ventilator 80 07/07/20 13:00 24 109/70 Mechanical Ventilator 80 07/07/20 13:00 24 109/70 Mechanical Ventilator 80 07/07/20 13:00 24 109/70 Mechanical Ventilator 80 07/07/20 13:00 24 109/70 Mechanical Ventilator 80 07/07/20 13:00 24 109/70 Mechanical Ventilator 80 07/07/20 13:00 24 109/70 Mechanical Ventilator 80 07/07/20 13:00 24 109/70 Mechanical Ventilator 80 07/07/20 13:00 24 109/70 Mechanical Ventilator 80 07/07/20 13:00 24 109/70 80 07/07/20 13:00 24 109/70 Mechanical Ventilator 80 07/07/20 12:00 18 129/74 Mechanical Ventilator 80 07/07/20 12:00 18 129/74 Mechanical Ventilator 80 07/07/20 12:00 18 129/74 Mechanical Ventilator 80 07/07/20 12:00 18 129/74 Mechanical Ventilator 80 07/07/20 12:00 18 129/74 Mechanical Ventilator 80 07/07/20 12:00 18 129/74 Mechanical Ventilator 80 07/07/20 12:00 18 129/74 Mechanical Ventilator 80 07/07/20 12:00 18 129/74 Mechanical Ventilator 80 07/07/20 12:00 18 129/74 Mechanical Ventilator 80 07/07/20 12:00 18 129/74 Mechanical Ventilator 80 07/07/20 12:00 18 129/74 Mechanical Ventilator 80 07/07/20 12:00 18 129/74 Mechanical Ventilator 80 07/07/20 12:00 100 07/07/20 12:00 Mechanical Ventilator Mechanical Ventilator 07/07/20 12:00 100.0 102 18 129/74 (92) 100 Intake and Output 07/07/20 07/08/20 19:00 07:00 Intake Total 517.3 ml 408 ml Output Total 460 ml 280 ml Balance 57.3 ml 128 ml IV Total 517.3 ml 408 ml Output Urine Total 360 ml 280 ml Stool Total 100 ml # Bowel Movements 50 Current Medications Medications (Trade) Dose Ordered Sig/Zelda Route PRN Reason Start Time Stop Time Status Last Admin Dose Admin Acetaminophen (Tylenol) 650 mg Q4H PRN NG Temp >100.5 06/29/20 10:15 07/29/20 10:14 07/05/20 12:45 Acetaminophen (Tylenol) 650 mg Q6H PRN NG Mild Pain (Pain Scale 1-3) 06/29/20 10:15 07/29/20 10:14 Chlorhexidine Gluconate (Inna-Hex 2%) 1 applic DAILY@2000 TOPIC 05/30/20 20:00 08/28/20 19:59 07/07/20 20:28 Dextrose (Dextrose 50%) 25 ml Q30M PRN IV Hypoglycemia 06/05/20 10:45 09/03/20 10:44 Dextrose (Dextrose 50%) 50 ml Q30M PRN IV Hypoglycemia 06/05/20 10:45 09/03/20 10:44 Enoxaparin Sodium (Lovenox) 40 mg DAILY SUBQ 05/30/20 10:00 08/28/20 09:59 07/07/20 09:12 Fentanyl Citrate 250 ml @ 1 mls/hr Q24H IV 07/07/20 19:00 07/09/20 18:59 07/08/20 08:47 Furosemide (Lasix) 40 mg DAILY IV 06/22/20 09:00 07/22/20 08:59 07/08/20 08:49 Insulin Aspart (NovoLOG) EVERY 6 HOURS SUBQ 06/07/20 00:00 09/03/20 11:59 07/06/20 06:10 Midazolam HCl 200 ml @ 0 mls/hr Q24H PRN IV Agitation 07/08/20 07:00 07/15/20 06:59 07/08/20 07:49 Midodrine (Pro-Amatine) 10 mg Q8HR GT 06/30/20 14:00 09/12/20 13:59 07/08/20 06:00 Vitamin D (Vitamin D) 5,000 unit DAILY GT 06/28/20 09:00 07/28/20 08:59 07/08/20 08:49 Laboratory Tests 07/08/20 05:29: White Blood Count 8.0, Red Blood Count 2.51L, Hemoglobin 7.2L, Hematocrit 24.2L, Mean Corpuscular Volume 96, Mean Corpuscular Hemoglobin 28.6, Mean Corpuscular Hemoglobin Concent 29.7L, Red Cell Distribution Width 19.0H, Platelet Count 207, Mean Platelet Volume 8.1, Neutrophils (%) (Auto) , Lymphocytes (%) (Auto) , Monocytes (%) (Auto) , Eosinophils (%) (Auto) , Basophils (%) (Auto) , Differential Total Cells Counted 100, Neutrophils % (Manual) 53, Lymphocytes % (Manual) 27, Monocytes % (Manual) 13H, Eosinophils % (Manual) 7H, Basophils % (Manual) 0, Band Neutrophils 0, Platelet Estimate Adequate, Platelet Morphology Normal, Polychromasia 1+, Hypochromasia 1+, Anisocytosis 2+, Stomatocytes Occasional, Sodium Level 140, Potassium Level 3.8, Chloride Level 97L, Carbon Dioxide Level 43*H, Blood Urea Nitrogen 14, Creatinine 0.5L, Estimat Glomerular Filtration Rate > 60, Glucose Level 95, Uric Acid 2.6, Calcium Level 9.5, Phosphorus Level 4.4, Magnesium Level 1.9, Total Bilirubin 1.7H, Direct Bilirubin 0.4H, Aspartate Amino Transf (AST/SGOT) 32, Alanine Aminotransferase (ALT/SGPT) 21, Alkaline Phosphatase 65, C-Reactive Protein, Quantitative 27.2H, Pro-B-Type Natriuretic Peptide 757H, Total Protein 7.2, Albumin 2.3L, Globulin 4.9, Albumin/Globulin Ratio 0.5L 07/08/20 10:45: Arterial Blood pH 7.402, Arterial Blood Partial Pressure CO2 81.4*H, Arterial Blood Partial Pressure O2 75.7, Arterial Blood HCO3 49.5*H, Arterial Blood Oxy gen Saturation 94.1L, Arterial Blood Base Excess 22.0*H, Jeremiah Test Positive Height (Feet): 5 Height (Inches): 6.00 Weight (Pounds): 239 General Appearance: no apparent distress Cardiovascular: tachycardia Respiratory/Chest: decreased breath sounds Abdomen: distended Rigo Tyler MD Jul 08, 2020 11:57
--- NOTE | 2020-07-08 12:16 | General Progress Note ---
Subjective ROS Limited/Unobtainable: Yes Allergies: Coded Allergies: No Known Allergies (Unverified , 05/28/20) Subjective events noted interval notes reviewed glucose values are normal Item Value Date Time Bedside Blood Glucose 104 mg/dl 07/08/20 1200 Bedside Blood Glucose 101 mg/dl 07/08/20 0600 Bedside Blood Glucose 92 mg/dl 07/08/20 0000 Bedside Blood Glucose 107 mg/dl 07/07/20 1800 Bedside Blood Glucose 153 mg/dl H 07/07/20 1200 Objective Last 24 Hour Vital Signs Date Time Temp Pulse Resp B/P (MAP) Pulse Ox O2 Delivery O2 Flow Rate FiO2 07/08/20 11:00 21 117/67 Mechanical Ventilator 80 07/08/20 11:00 29 117/67 Mechanical Ventilator 80 07/08/20 11:00 105 17 117/67 (84) 95 07/08/20 10:00 100 21 104/80 (88) 100 07/08/20 10:00 21 104/80 Mechanical Ventilator 80 07/08/20 10:00 21 104/80 Mechanical Ventilator 80 07/08/20 09:28 106 26 80 07/08/20 09:00 100 21 108/72 (84) 100 07/08/20 09:00 21 108/72 Mechanical Ventilator 60 07/08/20 09:00 21 108/72 Mechanical Ventilator 60 07/08/20 08:47 18 88/51 Mechanical Ventilator 60 07/08/20 08:00 Mechanical Ventilator Mechanical Ventilator 07/08/20 08:00 18 88/51 Mechanical Ventilator 60 07/08/20 08:00 18 88/55 Mechanical Ventilator 60 07/08/20 08:00 60 07/08/20 08:00 79 07/08/20 08:00 98.0 78 18 88/55 (66) 96 07/08/20 07:49 19 91/48 Mechanical Ventilator 60 07/08/20 07:12 79 15 60 07/08/20 07:00 76 16 86/52 (63) 100 07/08/20 07:00 19 91/48 Mechanical Ventilator 60 07/08/20 06:30 79 20 89/55 (66) 100 07/08/20 06:00 80 17 87/50 (62) 100 07/08/20 06:00 80 17 07/08/20 05:27 90 16 80 2/15/21 05:19 16 85/45 Mechanical Ventilator 07/08/20 05:14 83 16 85/45 (58) 100 07/08/20 05:12 85 17 81/45 (57) 100 07/08/20 05:09 86 17 84/45 (58) 100 07/08/20 05:04 92 19 85/40 (55) 99 07/08/20 05:00 85 21 50/16 (27) 100 07/08/20 04:54 82 21 81/49 (60) 100 07/08/20 04:41 88 16 81/42 (55) 100 07/08/20 04:00 84 07/08/20 04:00 80 07/08/20 04:00 Mechanical Ventilator Mechanical Ventilator 07/08/20 04:00 98.0 83 17 94/57 (69) 100 07/08/20 03:30 86 16 97/56 (70) 98 07/08/20 03:15 87 16 80 07/08/20 03:00 78 16 92/56 (68) 100 07/08/20 02:30 78 15 90/52 (65) 100 07/08/20 02:00 78 15 90/53 (65) 100 07/08/20 01:30 80 16 91/49 (63) 100 07/08/20 01:15 80 16 80 07/08/20 01:00 81 16 94/56 (69) 100 07/08/20 00:15 79 17 100 07/08/20 00:00 99.0 80 16 94/52 (66) 100 07/08/20 00:00 Mechanical Ventilator Mechanical Ventilator 07/07/20 23:15 81 15 100 07/07/20 23:13 81 16 80 07/07/20 23:00 80 16 90/55 (67) 100 07/07/20 22:45 80 18 100 07/07/20 22:30 81 16 93/55 (68) 100 07/07/20 22:15 81 16 100 07/07/20 22:00 82 16 91/55 (67) 100 07/07/20 21:45 83 16 100 07/07/20 21:43 82 16 80 07/07/20 21:30 84 16 95/57 (70) 100 07/07/20 21:15 83 17 100 07/07/20 21:00 85 17 90/57 (68) 100 07/07/20 20:00 100 07/07/20 20:00 Mechanical Ventilator Mechanical Ventilator 07/07/20 20:00 84 07/07/20 20:00 99.8 84 18 94/55 (68) 100 07/07/20 19:34 85 16 80 07/07/20 19:34 18 93/58 07/07/20 19:15 86 20 100 07/07/20 19:00 85 18 93/54 (67) 100 07/07/20 18:00 19 91/55 Mechanical Ventilator 80 07/07/20 18:00 19 91/55 Mechanical Ventilator 80 07/07/20 18:00 84 19 91/55 (67) 100 07/07/20 17:00 19 89/58 Mechanical Ventilator 80 07/07/20 17:00 19 89/58 Mechanical Ventilator 80 07/07/20 17:00 88 19 89/58 (68) 100 07/07/20 16:25 16 94/63 Mechanical Ventilator 80 07/07/20 16:00 91 07/07/20 16:00 Mechanical Ventilator Mechanical Ventilator 07/07/20 16:00 19 94/63 Mechanical Ventilator 80 07/07/20 16:00 99.8 93 19 94/63 (73) 99 07/07/20 16:00 100 07/07/20 15:28 100 25 80 07/07/20 15:00 14 94/67 Mechanical Ventilator 80 07/07/20 15:00 97 14 94/67 (76) 99 07/07/20 14:00 101 18 109/62 (78) 99 07/07/20 14:00 18 109/62 Mechanical Ventilator 80 07/07/20 14:00 18 109/62 Mechanical Ventilator 80 07/07/20 14:00 18 109/62 Mechanical Ventilator 80 07/07/20 14:00 18 109/62 Mechanical Ventilator 80 07/07/20 14:00 18 109/62 Mechanical Ventilator 80 07/07/20 14:00 18 109/62 Mechanical Ventilator 80 07/07/20 14:00 18 109/62 Mechanical Ventilator 80 07/07/20 14:00 18 109/62 Mechanical Ventilator 80 07/07/20 14:00 18 109/62 Mechanical Ventilator 80 07/07/20 14:00 18 109/62 Mechanical Ventilator 80 07/07/20 14:00 18 109/62 Mechanical Ventilator 80 07/07/20 14:00 18 109/62 Mechanical Ventilator 80 07/07/20 13:00 103 24 109/70 (83) 99 07/07/20 13:00 24 109/70 Mechanical Ventilator 80 07/07/20 13:00 24 109/70 Mechanical Ventilator 80 07/07/20 13:00 24 109/70 Mechanical Ventilator 80 07/07/20 13:00 24 109/70 Mechanical Ventilator 80 07/07/20 13:00 24 109/70 Mechanical Ventilator 80 07/07/20 13:00 24 109/70 Mechanical Ventilator 80 07/07/20 13:00 24 109/70 Mechanical Ventilator 80 07/07/20 13:00 24 109/70 Mechanical Ventilator 80 07/07/20 13:00 24 109/70 Mechanical Ventilator 80 07/07/20 13:00 24 109/70 Mechanical Ventilator 80 07/07/20 13:00 24 109/70 80 07/07/20 13:00 24 109/70 Mechanical Ventilator 80 Intake and Output 07/07/20 07/08/20 19:00 07:00 Intake Total 517.3 ml 408 ml Output Total 460 ml 280 ml Balance 57.3 ml 128 ml IV Total 517.3 ml 408 ml Output Urine Total 360 ml 280 ml Stool Total 100 ml # Bowel Movements 50 Laboratory Tests 07/08/20 05:29: White Blood Count 8.0, Red Blood Count 2.51L, Hemoglobin 7.2L, Hematocrit 24.2L, Mean Corpuscular Volume 96, Mean Corpuscular Hemoglobin 28.6, Mean Corpuscular Hemoglobin Concent 29.7L, Red Cell Distribution Width 19.0H, Platelet Count 207, Mean Platelet Volume 8.1, Neutrophils (%) (Auto) , Lymphocytes (%) (Auto) , Monocytes (%) (Auto) , Eosinophils (%) (Auto) , Basophils (%) (Auto) , Differential Total Cells Counted 100, Neutrophils % (Manual) 53, Lymphocytes % (Manual) 27, Monocytes % (Manual) 13H, Eosinophils % (Manual) 7H, Basophils % (Manual) 0, Band Neutrophils 0, Platelet Estimate Adequate, Platelet Morphology Normal, Polychromasia 1+, Hypochromasia 1+, Anisocytosis 2+, Stomatocytes Occasional, Sodium Level 140, Potassium Level 3.8, Chloride Level 97L, Carbon Dioxide Level 43*H, Blood Urea Nitrogen 14, Creatinine 0.5L, Estimat Glomerular Filtration Rate > 60, Glucose Level 95, Uric Acid 2.6, Calcium Level 9.5, Phosphorus Level 4.4, Magnesium Level 1.9, Total Bilirubin 1.7H, Direct Bilirubin 0.4H, Aspartate Amino Transf (AST/SGOT) 32, Alanine Aminotransferase (ALT/SGPT) 21, Alkaline Phosphatase 65, C-Reactive Protein, Quantitative 27.2H, Pro-B-Type Natriuretic Peptide 757H, Total Protein 7.2, Albumin 2.3L, Globulin 4.9, Albumin/Globulin Ratio 0.5L 07/08/20 10:45: Arterial Blood pH 7.402, Arterial Blood Partial Pressure CO2 81.4*H, Arterial Blood Partial Pressure O2 75.7, Arterial Blood HCO3 49.5*H, Arterial Blood Oxygen Saturation 94.1L, Arterial Blood Base Excess 22.0*H, Jeremiah Test Positive Height (Feet): 5 Height (Inches): 6.00 Weight (Pounds): 239 Objective Current Medications Medications (Trade) Dose Ordered Sig/Zelda Route PRN Reason Start Time Stop Time Status Last Admin Dose Admin Acetaminophen (Tylenol) 650 mg Q4H PRN NG Temp >100.5 06/29/20 10:15 07/29/20 10:14 07/05/20 12:45 Acetaminophen (Tylenol) 650 mg Q6H PRN NG Mild Pain (Pain Scale 1-3) 06/29/20 10:15 07/29/20 10:14 Chlorhexidine Gluconate (Inna-Hex 2%) 1 applic DAILY@2000 TOPIC 05/30/20 20:00 08/28/20 19:59 07/07/20 20:28 Dextrose (Dextrose 50%) 25 ml Q30M PRN IV Hypoglycemia 06/05/20 10:45 09/03/20 10:44 Dextrose (Dextrose 50%) 50 ml Q30M PRN IV Hypoglycemia 06/05/20 10:45 09/03/20 10:44 Enoxaparin Sodium (Lovenox) 40 mg DAILY SUBQ 05/30/20 10:00 08/28/20 09:59 07/07/20 09:12 Fentanyl Citrate 250 ml @ 1 mls/hr Q24H IV 07/07/20 19:00 07/09/20 18:59 07/08/20 08:47 Furosemide (Lasix) 40 mg DAILY IV 06/22/20 09:00 07/22/20 08:59 07/08/20 08:49 Insulin Aspart (NovoLOG) EVERY 6 HOURS SUBQ 06/07/20 00:00 09/03/20 11:59 07/06/20 06:10 Midazolam HCl 200 ml @ 0 mls/hr Q24H PRN IV Agitation 07/08/20 07:00 07/15/20 06:59 07/08/20 07:49 Midodrine (Pro-Amatine) 10 mg Q8HR GT 06/30/20 14:00 09/12/20 13:59 07/08/20 06:00 Vitamin D (Vitamin D) 5,000 unit DAILY GT 06/28/20 09:00 07/28/20 08:59 07/08/20 08:49 Assessment/Plan Problem List: (1) Diabetes mellitus out of control ICD Codes: E11.65 - Type 2 diabetes mellitus with hyperglycemia SNOMED: 60245523, 258078852 (2) Pneumonia due to COVID-19 virus ICD Codes: U07.1 - COVID-19; J12.82 - Pneumonia due to coronavirus disease 2019 SNOMED: 790639521269535899 (3) Respiratory distress ICD Codes: R06.03 - Acute respiratory distress; J12.82 - Pneumonia due to coronavirus disease 2019 SNOMED: 140257302 Status: unchanged Assessment/Plan: DC glucose monitoring and Novolog sliding scale every 6 hours I sign off Huber Adame MD Jul 08, 2020 12:16
--- NOTE | 2020-07-08 13:11 | Surgery Progress Note ---
Surgery Progress Note Subjective Procedure Performed right femoral central venous line insertion Additional Comments more comfortable today trach okay line okay lab noted cont weaning Objective Last 24 Hour Vital Signs Date Time Temp Pulse Resp B/P (MAP) Pulse Ox O2 Delivery O2 Flow Rate FiO2 07/08/20 12:00 Mechanical Ventilator Mechanical Ventilator 07/08/20 12:00 80 07/08/20 12:00 98.2 110 16 125/93 (104) 95 07/08/20 12:00 19 125/93 Mechanical Ventilator 80 07/08/20 12:00 19 125/93 80 07/08/20 12:00 108 07/08/20 11:00 21 117/67 Mechanical Ventilator 80 07/08/20 11:00 29 117/67 Mechanical Ventilator 80 07/08/20 11:00 105 17 117/67 (84) 95 07/08/20 10:00 100 21 104/80 (88) 100 07/08/20 10:00 21 104/80 Mechanical Ventilator 80 07/08/20 10:00 21 104/80 Mechanical Ventilator 80 07/08/20 09:28 106 26 80 07/08/20 09:00 100 21 108/72 (84) 100 07/08/20 09:00 21 108/72 Mechanical Ventilator 60 07/08/20 09:00 21 108/72 Mechanical Ventilator 60 07/08/20 08:47 18 88/51 Mechanical Ventilator 60 07/08/20 08:00 Mechanical Ventilator Mechanical Ventilator 07/08/20 08:00 18 88/51 Mechanical Ventilator 60 07/08/20 08:00 18 88/55 Mechanical Ventilator 60 07/08/20 08:00 60 07/08/20 08:00 79 07/08/20 08:00 98.0 78 18 88/55 (66) 96 07/08/20 07:49 19 91/48 Mechanical Ventilator 60 07/08/20 07:12 79 15 60 07/08/20 07:00 76 16 86/52 (63) 100 07/08/20 07:00 19 91/48 Mechanical Ventilator 60 07/08/20 06:30 79 20 89/55 (66) 100 07/08/20 06:00 80 17 87/50 (62) 100 07/08/20 06:00 80 17 07/08/20 05:27 90 16 80 07/08/20 05:19 16 85/45 Mechanical Ventilator 07/08/20 05:14 83 16 85/45 (58) 100 07/08/20 05:12 85 17 81/45 (57) 100 07/08/20 05:09 86 17 84/45 (58) 100 07/08/20 05:04 92 19 85/40 (55) 99 07/08/20 05:00 85 21 50/16 (27) 100 07/08/20 04:54 82 21 81/49 (60) 100 07/08/20 04:41 88 16 81/42 (55) 100 07/08/20 04:00 84 07/08/20 04:00 80 07/08/20 04:00 Mechanical Ventilator Mechanical Ventilator 07/08/20 04:00 98.0 83 17 94/57 (69) 100 07/08/20 03:30 86 16 97/56 (70) 98 07/08/20 03:15 87 16 80 07/08/20 03:00 78 16 92/56 (68) 100 07/08/20 02:30 78 15 90/52 (65) 100 07/08/20 02:00 78 15 90/53 (65) 100 07/08/20 01:30 80 16 91/49 (63) 100 07/08/20 01:15 80 16 80 07/08/20 01:00 81 16 94/56 (69) 100 07/08/20 00:15 79 17 100 07/08/20 00:00 99.0 80 16 94/52 (66) 100 07/08/20 00:00 Mechanical Ventilator Mechanical Ventilator 07/07/20 23:15 81 15 100 07/07/20 23:13 81 16 80 07/07/20 23:00 80 16 90/55 (67) 100 07/07/20 22:45 80 18 100 07/07/20 22:30 81 16 93/55 (68) 100 07/07/20 22:15 81 16 100 07/07/20 22:00 82 16 91/55 (67) 100 07/07/20 21:45 83 16 100 07/07/20 21:43 82 16 80 07/07/20 21:30 84 16 95/57 (70) 100 07/07/20 21:15 83 17 100 07/07/20 21:00 85 17 90/57 (68) 100 07/07/20 20:00 100 07/07/20 20:00 Mechanical Ventilator Mechanical Ventilator 07/07/20 20:00 84 07/07/20 20:00 99.8 84 18 94/55 (68) 100 07/07/20 19:34 85 16 80 07/07/20 19:34 18 93/58 07/07/20 19:15 86 20 100 07/07/20 19:00 85 18 93/54 (67) 100 07/07/20 18:00 19 91/55 Mechanical Ventilator 80 07/07/20 18:00 19 91/55 Mechanical Ventilator 80 07/07/20 18:00 84 19 91/55 (67) 100 07/07/20 17:00 19 89/58 Mechanical Ventilator 80 07/07/20 17:00 19 89/58 Mechanical Ventilator 80 07/07/20 17:00 88 19 89/58 (68) 100 07/07/20 16:25 16 94/63 Mechanical Ventilator 80 07/07/20 16:00 91 07/07/20 16:00 Mechanical Ventilator Mechanical Ventilator 07/07/20 16:00 19 94/63 Mechanical Ventilator 80 07/07/20 16:00 99.8 93 19 94/63 (73) 99 07/07/20 16:00 100 07/07/20 15:28 100 25 80 07/07/20 15:00 14 94/67 Mechanical Ventilator 80 07/07/20 15:00 97 14 94/67 (76) 99 07/07/20 14:00 101 18 109/62 (78) 99 07/07/20 14:00 18 109/62 Mechanical Ventilator 80 07/07/20 14:00 18 109/62 Mechanical Ventilator 80 07/07/20 14:00 18 109/62 Mechanical Ventilator 80 07/07/20 14:00 18 109/62 Mechanical Ventilator 80 07/07/20 14:00 18 109/62 Mechanical Ventilator 80 07/07/20 14:00 18 109/62 Mechanical Ventilator 80 07/07/20 14:00 18 109/62 Mechanical Ventilator 80 07/07/20 14:00 18 109/62 Mechanical Ventilator 80 07/07/20 14:00 18 109/62 Mechanical Ventilator 80 07/07/20 14:00 18 109/62 Mechanical Ventilator 80 07/07/20 14:00 18 109/62 Mechanical Ventilator 80 07/07/20 14:00 18 109/62 Mechanical Ventilator 80 I&O Intake and Output 07/07/20 07/08/20 19:00 07:00 Intake Total 517.3 ml 408 ml Output Total 460 ml 280 ml Balance 57.3 ml 128 ml IV Total 517.3 ml 408 ml Output Urine Total 360 ml 280 ml Stool Total 100 ml # Bowel Movements 50 Dressing: saturated Cardiovascular: RSR Respiratory: decreased breath sounds Abdomen: soft, non-tender, present bowel sounds, non-distended Extremities: edema, no tenderness, no cyanosis Laboratory Tests Test 07/08/20 05:29 07/08/20 10:45 White Blood Count 8.0 K/UL (4.8-10.8) Red Blood Count 2.51 M/UL (4.20-5.40) L Hemoglobin 7.2 G/DL (12.0-16.0) L Hematocrit 24.2 % (37.0-47.0) L Mean Corpuscular Volume 96 FL (80-99) Mean Corpuscular Hemoglobin 28.6 PG (27.0-31.0) Mean Corpuscular Hemoglobin Concent 29.7 G/DL (32.0-36.0) L Red Cell Distribution Width 19.0 % (11.6-14.8) H Platelet Count 207 K/UL (150-450) Mean Platelet Volume 8.1 FL (6.5-10.1) Neutrophils (%) (Auto) % (45.0-75.0) Lymphocytes (%) (Auto) % (20.0-45.0) Monocytes (%) (Auto) % (1.0-10.0) Eosinophils (%) (Auto) % (0.0-3.0) Basophils (%) (Auto) % (0.0-2.0) Differential Total Cells Counted 100 Neutrophils % (Manual) 53 % (45-75) Lymphocytes % (Manual) 27 % (20-45) Monocytes % (Manual) 13 % (1-10) H Eosinophils % (Manual) 7 % (0-3) H Basophils % (Manual) 0 % (0-2) Band Neutrophils 0 % (0-8) Platelet Estimate Adequate Platelet Morphology Normal Polychromasia 1+ Hypochromasia 1+ Anisocytosis 2+ Stomatocytes Occasional Sodium Level 140 MMOL/L (136-145) Potassium Level 3.8 MMOL/L (3.5-5.1) Chloride Level 97 MMOL/L (98-107) L Carbon Dioxide Level 43 MMOL/L (21-32) *H Blood Urea Nitrogen 14 mg/dL (7-18) Creatinine 0.5 MG/DL (0.55-1.30) L Estimat Glomerular Filtration Rate > 60 mL/min (>60) Glucose Level 95 MG/DL (74-106) Uric Acid 2.6 MG/DL (2.6-7.2) Calcium Level 9.5 MG/DL (8.5-10.1) Phosphorus Level 4.4 MG/DL (2.5-4.9) Magnesium Level 1.9 MG/DL (1.8-2.4) Total Bilirubin 1.7 MG/DL (0.2-1.0) H Direct Bilirubin 0.4 MG/DL (0.0-0.3) H Aspartate Amino Transf (AST/SGOT) 32 U/L (15-37) Alanine Aminotransferase (ALT/SGPT) 21 U/L (12-78) Alkaline Phosphatase 65 U/L (46-116) C-Reactive Protein, Quantitative 27.2 mg/dL (0.00-0.90) H Pro-B-Type Natriuretic Peptide 757 pg/mL (0-125) H Total Protein 7.2 G/DL (6.4-8.2) Albumin 2.3 G/DL (3.4-5.0) L Globulin 4.9 g/dL Albumin/Globulin Ratio 0.5 (1.0-2.7) L Arterial Blood pH 7.402 (7.350-7.450) Arterial Blood Partial Pressure CO2 81.4 mmHg (35.0-45.0) *H Arterial Blood Partial Pressure O2 75.7 mmHg (75.0-100.0) Arterial Blood HCO3 49.5 mmol/L (22.0-26.0) *H Arterial Blood Oxygen Saturation 94.1 % (95-100) L Arterial Blood Base Excess 22.0 (-2-2) *H Jeremiah Test Positive Plan Problems: (1) Respiratory distress (2) Respiratory failure Assessment & Plan: 50-year-old female Covid positive respiratory insufficiency intubated on ventilatory support declining. Leukocytosis increase oxygen requirement. Vent settings per pulmonology reviewed identified and agree. Unfortunately further surgical invention at this time is not appropriate as patient is not a candidate and her current condition. Prognosis overall guarded. Tracheostomy can be considered in the future if recovering or shows improvement and requires unable to be weaned from ventilator support. Currently okay for nutritional optimization with NG tube. Will need significant monitoring for decubitus formation given patient's size and condition. Okay for air mattress tolerated. Turn every 2 hours as tolerated. Patient is otherwise critically ill and blood pressure labile. Will need to monitor closely.Bilateral infiltrates are again demonstrated. Stable tube and line positions. will need trach will need to wean vent first (3) Hypoxia (4) Pneumonia due to COVID-19 virus Assessment & Plan: ++ as per pulm and ID (5) Diabetes mellitus out of control Assessment & Plan: DAILY ESTIMATED NEEDS: Needs based on Critical care, obesity 11-14kcal/kg actual body wt (140kg) kcals/kg 7784-1575 total kcals 1.5-2.0g prot/kg IBW (64.5kg) g protein/kg 96-129 g total protein 25-30ml/kg abw (83kg) mL/kg 1983-8285 total fluid mLs NUTRITION DIAGNOSIS: Swallowing difficulty R/T respiratory failure as evidenced by pt orally intubated and sedated, on OGT feeds. CURRENT TF: Vital 1.2 goal of 60ml/hr ENTERAL NUTRITION RECOMMENDATIONS: Vital AF 1.2 @ 60ml/hr x 24 hrs to provide 1440ml, 1728kcal, 108g prot, 1168ml free water * Maintain current critical care and carb controlled TF formula of Vital AF * TF @ goal meeds 100% est kcal/prot needs * HOB over 30 degrees/ water flush per MD TF may be lowered to 55ml/hr for improved BG control while maintaining Kcal and pro needs. ADDITIONAL RECOMMENDATIONS: * Calibrated bedscale wt * Monitor Propofol rate, need for TF adjustment-> now off * Monitor BGs closely : now improved, on novolog q 6rs + NISS * Monitor lytes- K elevated, monitor need for TF change * Rec bowel regimen- now w/ rectal tube . Az Devine Jul 08, 2020 13:11
--- NOTE | 2020-07-08 14:36 | NUR ---
CASE MANAGEMENT:REVIEW 07/08/20 SI: COVID PNEUMONIA POD #1...S/P TRACHEOSTOMY AND BRONCHOSCOPY 98.2 110 19 126/78 95% ON VENT SUPPORT W/80% FIO2 PEEP~7.0 H/H-7.2/24.2 PCO2+81.4 HCO3+49.5 IS:VERSED GTT FENTANYL GTT IV LASIX QD IV PROTONIX Q12 LOVENOX SQ QD IVF@50/HR MIDODRINE NG Q8HRS : ICU STATUS DCP: FROM HOME PLAN: WILL NEED SUBACUTE PLACEMENT OR LTACH
--- NOTE | 2020-07-08 14:42 | NUR ---
NURSE NOTES: Pt turned and repositioned,,oral care done,bed bath given,kept dry and clean.
--- NOTE | 2020-07-08 17:00 | NUR ---
INSURANCE CLINICALS AND REVIEWS FAXED TO [facility] T: [phone] EXT [phone] F: [phone]
--- NOTE | 2020-07-08 17:00 | NUR ---
NURSE NOTES: Pt with fever T99.7,bld transfusion not done,cold compress applied to forehead,pt on cooling blanket.
[2020-07-08] MEDS: Acetaminophen 650mg/20.3ml NG PRN (18:26)
--- NOTE | 2020-07-08 18:30 | NUR ---
NURSE NOTES: Tylenol 650 mg NGT given for temp 99.7,will continue to monitor pt's temp.
--- NOTE | 2020-07-08 19:15 | NUR ---
NURSE HAND-OFF REPORT: Latest Vital Signs: Temperature 99.7 , Pulse 79 , B/P 90 /57 , Respiratory Rate 15 , O2 SAT 100 , Mechanical Ventilator, O2 Flow Rate . Vital Sign Comment: unstable EKG Rhythm: Sinus Tachycardia Rhythm change?: Jesus TOLLIVER Notified?: Babs EDWARDS MD Response: Latest Meyers Fall Score: 70 Fall Risk: High Risk Safety Measures: Call light Within Reach, Bed Alarm Zone 1, Side Rails Side Rails x2, Bed position Low and Locked. Fall Precautions: Yellow Socks Report given to Jacob Quintero RN..
[2020-07-08] MEDS: Dyna-Hex 2% Top Sol 2oz TOPIC SCH (19:58)
[2020-07-08] MEDS: Pantoprazole Inj IVP SCH (20:02)
--- NOTE | 2020-07-08 20:24 | NUR ---
report received from day rn. Pt hypotensive. Decreased sedation. 1 unit prbc ordered. Started transfusion at 1999. Bed in lowest position, call light within reach, side rails x2, will continue to monitor.
--- NOTE | 2020-07-08 22:39 | NUR ---
blood transfusion ended. No adverse reactions. Pt hemodynamically stable. Will continue to monitor.
[2020-07-09] VITALS (56 sets, daily range): BP systolic 70–126; BP diastolic 43–97
--- NOTE | 2020-07-09 04:00 | NUR ---
after providing hygiene care, pt became hypotensive. Repositioned pt and decreased sedation. BP soft but wnl. Will continue to monitor.
[2020-07-09] MEDS: Midodrine 10mg tab GT SCH ×3 (06:23→20:28)
--- NOTE | 2020-07-09 06:42 | Hematology/Onc Progress Note ---
Assessment/Plan Assessment/Plan # Deep vein thrombosis of the right calf --> given onoing anemia and low plts --> consider ivc if bleeding--once stable, needs it placed --> once stable, for radiology and ivc filter placement # Thrombocytopenia is due to infection/underlying covid19+++ --> ABX ceftriaxone -->zosyn-->off --> on steriods likely cause of initial wbc --> per pulm --> plt 107->156-->192-->205 --> smear reviewed # Anemia due to chronic disease --> hgb goal is >7 --> transfuse prn --> ferritin is >1000 --> hold off on iron --> 10-->9.8->9-->8-->8.2-->9.4-->8.1-->9.9-->8.7-->9.7-->9.5-->8.1- ->8.8->8.5->7.2 # Elevated ddimer due to covid19++ --> duplex legs is negative --> underlying covid rx # Hypoxia -> due to covid19 # Hypoxemia --> rx same as above # Respiratory failure --> on vent/trach --> per pulm # Pneumonia due to COVID-19 virus --> per pulm rx -> sp remdesivir # Diabetes mellitus out of control --> hgb a1c goal <7 # Poor prognosis # Dvt ppx ivc filter once more stable Appreciate consultation and bowen RN Subjective HEENT: Denies: no symptoms, eye pain, blurred vision, tearing, double vision, ear pain, ear discharge, nose pain, nose congestion, throat pain, throat swelling, mouth pain, mouth swelling, other Cardiovascular: Denies: no symptoms, chest pain, edema, irregular heart rate, lightheadedness, palpitations, syncope, other Neurologic/Psychiatric: Denies: no symptoms, anxiety, depressed, emotional problems, headache, numbness, paresthesia, pre-existing deficit, seizure, tingling, tremors, weakness, other Endocrine: Denies: no symptoms, excessive sweating, flushing, intolerance to cold, intolerance to heat, increased hunger, increased thirst, increased urine, unexplained weight gain, unexplained weight loss, other Hematologic/Lymphatic: Denies: no symptoms, anemia, easy bleeding, easy bruising, adenopathy, other Allergies: Coded Allergies: No Known Allergies (Unverified , 05/28/20) Subjective 06/10 nv, on vent, with ogt, on fentanyl and versed, plt stable 06/11 nv, vent adjusted is on ogt, meds reviewed 06/12 nv, vent, meds noted, labs noted, no bleeding, hgb 10.4 06/13 nv, is on vent, meds reviewed, no bleeding, cbc reviewed 06/14 nv, on vent, tachy, labs reviewed, gross hematuria, febrile overnight, abx 06/17 nv, on vent, labs noted, no major changes, feeling better overnight 06/18 nv, meds reviewed, labs noted, no major events, hgb 8.6 06/19 nv, remains intubated, with fluids, labs reviewed, meds noted 06/20 nv, intubated remains on restraints, meds noted as well, as labs 06/21 nv, remains on vent, on restraints, meds reviewed, labs noted 06/22: covering Dr. Del Cid no acute events 06/23 sedated, on vent, nv, intubated, meds reviewed, versed 06/24 nv, on vent, no night sweats, no bleeding, remains in icu 06/25 nv, on vent, icu, meds noted, no bleeding, comfortable 06/26 nv, on versed, icu, weaning parameters, labs noted 06/27 nv, overnight fighting vent, as per pulm fentanyl on board 06/28 nv, on vent, labs reviewed, as per pulm, meds noted 06/30 nv, icu, labs pending, is on fentanyl, versed, no new changes 07/01 nv, icu, is on vent, labs pending, no new changes per rn 07/02 nv, icu is on vent, labs noted, hgb is stable 07/03 nv, icu, is on vent, potential trrach when stable, cbc reviewed 07/04 icu, nv, labs are noted, stable for trach today dw Rn Dl 07/05 icu, nv, on vent, with ng and picc in place, labs noted, s/p trach 07/07 icu, nv, on tv, no bleeding, labs noted, meds reviewed 07/08 icu, nv, on tv, labs reviewed, meds noted, no bleeding 07/09 icu, nv, meds noted, no bleeding, blood transfusion was completed Objective Objective Current Medications Medications (Trade) Dose Ordered Sig/Zelda Route PRN Reason Start Time Stop Time Status Last Admin Dose Admin Acetaminophen (Tylenol) 650 mg Q4H PRN NG Temp >100.5 06/29/20 10:15 07/29/20 10:14 07/08/20 18:26 Acetaminophen (Tylenol) 650 mg Q6H PRN NG Mild Pain (Pain Scale 1-3) 06/29/20 10:15 07/29/20 10:14 Chlorhexidine Gluconate (Inna-Hex 2%) 1 applic DAILY@2000 TOPIC 05/30/20 20:00 08/28/20 19:59 07/08/20 19:58 Dextrose (Dextrose 50%) 25 ml Q30M PRN IV Hypoglycemia 06/05/20 10:45 09/03/20 10:44 Dextrose (Dextrose 50%) 50 ml Q30M PRN IV Hypoglycemia 06/05/20 10:45 09/03/20 10:44 Enoxaparin Sodium (Lovenox) 40 mg DAILY SUBQ 05/30/20 10:00 08/28/20 09:59 07/07/20 09:12 Fentanyl Citrate 250 ml @ 1 mls/hr Q24H IV 07/07/20 19:00 07/09/20 18:59 07/08/20 20:02 Furosemide (Lasix) 40 mg DAILY IV 06/22/20 09:00 07/22/20 08:59 07/08/20 08:49 Midazolam HCl 200 ml @ 0 mls/hr Q24H PRN IV Agitation 07/08/20 07:00 07/10/20 06:59 07/08/20 23:33 Midodrine (Pro-Amatine) 10 mg Q8HR GT 06/30/20 14:00 09/12/20 13:59 07/09/20 06:23 Pantoprazole (Protonix) 40 mg EVERY 12 HOURS IVP 07/08/20 21:00 08/07/20 20:59 07/08/20 20:02 Vitamin D (Vitamin D) 5,000 unit DAILY GT 06/28/20 09:00 3/7/21 08:59 07/08/20 08:49 Last 24 Hour Vital Signs Date Time Temp Pulse Resp B/P (MAP) Pulse Ox O2 Delivery O2 Flow Rate FiO2 07/09/20 06:00 75 17 95/55 (68) 100 07/09/20 05:30 72 16 90/44 (59) 100 07/09/20 05:00 73 18 96/57 (70) 100 07/09/20 04:44 73 16 91/66 (74) 100 07/09/20 04:35 73 16 75/47 (56) 100 07/09/20 04:30 71 15 70/46 (54) 100 07/09/20 04:09 76 17 87/53 (64) 100 07/09/20 04:03 75 19 71/48 (56) 100 07/09/20 04:00 72 07/09/20 04:00 80 07/09/20 04:00 98.0 77 15 80/49 (59) 100 07/09/20 04:00 Mechanical Ventilator Mechanical Ventilator 07/09/20 03:51 79 19 80 07/09/20 03:30 78 20 83/54 (64) 100 07/09/20 03:29 79 21 76/43 (54) 100 07/09/20 03:00 93 16 07/09/20 02:30 68 14 94/61 (72) 100 07/09/20 02:00 72 15 102/62 (75) 100 07/09/20 01:00 80 16 95/58 (70) 100 07/09/20 00:30 93 27 105/66 (79) 97 07/09/20 00:00 97.8 07/09/20 00:00 Mechanical Ventilator Mechanical Ventilator 07/09/20 00:00 80 07/09/20 00:00 76 15 90/65 (73) 100 07/09/20 00:00 76 07/08/20 23:41 72 15 80 07/08/20 23:33 20 84/55 07/08/20 23:00 69 15 87/58 (68) 100 07/08/20 22:45 67 16 100 07/08/20 22:30 69 15 90/55 (67) 100 07/08/20 22:17 68 19 93/60 (71) 100 07/08/20 22:15 68 16 100 07/08/20 22:00 70 15 87/51 (63) 100 07/08/20 21:45 69 15 100 07/08/20 21:30 71 15 87/53 (64) 100 07/08/20 21:15 73 15 100 07/08/20 21:00 79 19 91/58 (69) 100 07/08/20 20:02 20 82/52 Mechanical Ventilator 07/08/20 20:00 98.9 76 16 82/52 (62) 100 07/08/20 20:00 Mechanical Ventilator Mechanical Ventilator 07/08/20 20:00 80 07/08/20 20:00 82 07/08/20 19:51 89 18 80 07/08/20 19:00 15 90/57 Mechanical Ventilator 80 07/08/20 19:00 15 90/57 Mechanical Ventilator 80 07/08/20 19:00 99.7 79 16 90/59 (69) 100 07/08/20 18:56 98.8 07/08/20 18:00 16 91/56 Mechanical Ventilator 80 07/08/20 18:00 16 91/52 Mechanical Ventilator 80 07/08/20 18:00 99.7 86 16 91/52 (65) 100 07/08/20 17:00 17 97/56 Mechanical Ventilator 80 07/08/20 17:00 17 97/56 Mechanical Ventilator 80 07/08/20 17:00 90 17 97/56 (70) 100 07/08/20 16:00 100.1 100 25 102/63 (76) 100 07/08/20 16:00 Mechanical Ventilator Mechanical Ventilator 07/08/20 16:00 80 07/08/20 16:00 25 102/63 Mechanical Ventilator 80 07/08/20 16:00 25 102/63 Mechanical Ventilator 80 07/08/20 16:00 111 07/08/20 15:00 99 19 106/70 (82) 100 07/08/20 15:00 20 106/70 Mechanical Ventilator 80 07/08/20 15:00 20 106/70 Mechanical Ventilator 80 07/08/20 14:00 108 21 104/68 (80) 100 07/08/20 14:00 18 104/68 Mechanical Ventilator 80 07/08/20 14:00 18 104/68 Mechanical Ventilator 80 07/08/20 13:19 102 22 80 07/08/20 13:00 110 19 126/78 (94) 95 07/08/20 13:00 19 126/78 Mechanical Ventilator 80 07/08/20 13:00 19 126/78 Mechanical Ventilator 80 07/08/20 12:00 Mechanical Ventilator Mechanical Ventilator 07/08/20 12:00 80 07/08/20 12:00 98.2 110 16 125/93 (104) 95 07/08/20 12:00 19 125/93 Mechanical Ventilator 80 07/08/20 12:00 19 125/93 80 07/08/20 12:00 108 07/08/20 11:00 21 117/67 Mechanical Ventilator 80 07/08/20 11:00 29 117/67 Mechanical Ventilator 80 07/08/20 11:00 105 17 117/67 (84) 95 07/08/20 10:00 100 21 104/80 (88) 100 07/08/20 10:00 21 104/80 Mechanical Ventilator 80 07/08/20 10:00 21 104/80 Mechanical Ventilator 80 07/08/20 09:28 106 26 80 07/08/20 09:00 100 21 108/72 (84) 100 07/08/20 09:00 21 108/72 Mechanical Ventilator 60 07/08/20 09:00 21 108/72 Mechanical Ventilator 60 07/08/20 08:47 18 88/51 Mechanical Ventilator 60 07/08/20 08:00 Mechanical Ventilator Mechanical Ventilator 07/08/20 08:00 18 88/51 Mechanical Ventilator 60 07/08/20 08:00 18 88/55 Mechanical Ventilator 60 07/08/20 08:00 60 07/08/20 08:00 79 07/08/20 08:00 98.0 78 18 88/55 (66) 96 07/08/20 07:49 19 91/48 Mechanical Ventilator 60 07/08/20 07:12 79 15 60 07/08/20 07:00 76 16 86/52 (63) 100 07/08/20 07:00 19 91/48 Mechanical Ventilator 60 07/08/20 06:30 79 20 89/55 (66) 100 07/08/20 06:00 80 17 87/50 (62) 100 07/08/20 06:00 80 17 07/08/20 05:27 90 16 80 07/08/20 05:19 16 85/45 Mechanical Ventilator 07/08/20 05:14 83 16 85/45 (58) 100 07/08/20 05:12 85 17 81/45 (57) 100 07/08/20 05:09 86 17 84/45 (58) 100 07/08/20 05:04 92 19 85/40 (55) 99 07/08/20 05:00 85 21 50/16 (27) 100 07/08/20 04:54 82 21 81/49 (60) 100 07/08/20 04:41 88 16 81/42 (55) 100 07/08/20 04:00 84 07/08/20 04:00 80 07/08/20 04:00 Mechanical Ventilator Mechanical Ventilator 07/08/20 04:00 98.0 83 17 94/57 (69) 100 07/08/20 03:30 86 16 97/56 (70) 98 07/08/20 03:15 87 16 80 07/08/20 03:00 78 16 92/56 (68) 100 07/08/20 02:30 78 15 90/52 (65) 100 07/08/20 02:00 78 15 90/53 (65) 100 07/08/20 01:30 80 16 91/49 (63) 100 07/08/20 01:15 80 16 80 07/08/20 01:00 81 16 94/56 (69) 100 07/08/20 00:15 79 17 100 07/08/20 00:00 99.0 80 16 94/52 (66) 100 07/08/20 00:00 Mechanical Ventilator Mechanical Ventilator 07/07/20 23:15 81 15 100 07/07/20 23:13 81 16 80 07/07/20 23:00 80 16 90/55 (67) 100 07/07/20 22:45 80 18 100 07/07/20 22:30 81 16 93/55 (68) 100 07/07/20 22:15 81 16 100 07/07/20 22:00 82 16 91/55 (67) 100 07/07/20 21:45 83 16 100 07/07/20 21:43 82 16 80 07/07/20 21:30 84 16 95/57 (70) 100 07/07/20 21:15 83 17 100 07/07/20 21:00 85 17 90/57 (68) 100 07/07/20 20:00 100 07/07/20 20:00 Mechanical Ventilator Mechanical Ventilator 07/07/20 20:00 84 07/07/20 20:00 99.8 84 18 94/55 (68) 100 07/07/20 19:34 85 16 80 07/07/20 19:34 18 93/58 07/07/20 19:15 86 20 100 07/07/20 19:00 85 18 93/54 (67) 100 07/07/20 18:00 19 91/55 Mechanical Ventilator 80 07/07/20 18:00 19 91/55 Mechanical Ventilator 80 07/07/20 18:00 84 19 91/55 (67) 100 07/07/20 17:00 19 89/58 Mechanical Ventilator 80 07/07/20 17:00 19 89/58 Mechanical Ventilator 80 07/07/20 17:00 88 19 89/58 (68) 100 07/07/20 16:25 16 94/63 Mechanical Ventilator 80 07/07/20 16:00 91 07/07/20 16:00 Mechanical Ventilator Mechanical Ventilator 07/07/20 16:00 19 94/63 Mechanical Ventilator 80 07/07/20 16:00 99.8 93 19 94/63 (73) 99 07/07/20 16:00 100 07/07/20 15:28 100 25 80 07/07/20 15:00 14 94/67 Mechanical Ventilator 80 07/07/20 15:00 97 14 94/67 (76) 99 07/07/20 14:00 101 18 109/62 (78) 99 07/07/20 14:00 18 109/62 Mechanical Ventilator 80 07/07/20 14:00 18 109/62 Mechanical Ventilator 80 07/07/20 14:00 18 109/62 Mechanical Ventilator 80 07/07/20 14:00 18 109/62 Mechanical Ventilator 80 07/07/20 14:00 18 109/62 Mechanical Ventilator 80 07/07/20 14:00 18 109/62 Mechanical Ventilator 80 07/07/20 14:00 18 109/62 Mechanical Ventilator 80 07/07/20 14:00 18 109/62 Mechanical Ventilator 80 07/07/20 14:00 18 109/62 Mechanical Ventilator 80 07/07/20 14:00 18 109/62 Mechanical Ventilator 80 07/07/20 14:00 18 109/62 Mechanical Ventilator 80 07/07/20 14:00 18 109/62 Mechanical Ventilator 80 07/07/20 13:00 103 24 109/70 (83) 99 07/07/20 13:00 24 109/70 Mechanical Ventilator 80 07/07/20 13:00 24 109/70 Mechanical Ventilator 80 07/07/20 13:00 24 109/70 Mechanical Ventilator 80 07/07/20 13:00 24 109/70 Mechanical Ventilator 80 07/07/20 13:00 24 109/70 Mechanical Ventilator 80 07/07/20 13:00 24 109/70 Mechanical Ventilator 80 07/07/20 13:00 24 109/70 Mechanical Ventilator 80 07/07/20 13:00 24 109/70 Mechanical Ventilator 80 07/07/20 13:00 24 109/70 Mechanical Ventilator 80 07/07/20 13:00 24 109/70 Mechanical Ventilator 80 07/07/20 13:00 24 109/70 80 07/07/20 13:00 24 109/70 Mechanical Ventilator 80 07/07/20 12:00 18 129/74 Mechanical Ventilator 80 07/07/20 12:00 18 129/74 Mechanical Ventilator 80 07/07/20 12:00 18 129/74 Mechanical Ventilator 80 07/07/20 12:00 18 129/74 Mechanical Ventilator 80 07/07/20 12:00 18 129/74 Mechanical Ventilator 80 07/07/20 12:00 18 129/74 Mechanical Ventilator 80 07/07/20 12:00 18 129/74 Mechanical Ventilator 80 07/07/20 12:00 18 129/74 Mechanical Ventilator 80 07/07/20 12:00 18 129/74 Mechanical Ventilator 80 07/07/20 12:00 18 129/74 Mechanical Ventilator 80 07/07/20 12:00 18 129/74 Mechanical Ventilator 80 07/07/20 12:00 18 129/74 Mechanical Ventilator 80 07/07/20 12:00 100 07/07/20 12:00 Mechanical Ventilator Mechanical Ventilator 07/07/20 12:00 100.0 102 18 129/74 (92) 100 07/07/20 11:18 115 30 80 07/07/20 11:17 106 07/07/20 11:00 26 112/71 Mechanical Ventilator 80 07/07/20 11:00 26 112/71 Mechanical Ventilator 80 07/07/20 11:00 114 26 112/71 (85) 98 07/07/20 10:00 21 116/72 Mechanical Ventilator 80 07/07/20 10:00 21 116/72 Mechanical Ventilator 80 07/07/20 10:00 116 21 116/72 (87) 95 07/07/20 09:00 118 27 103/78 (86) 93 07/07/20 09:00 27 103/78 Mechanical Ventilator 80 07/07/20 09:00 27 103/78 Mechanical Ventilator 80 07/07/20 08:00 Mechanical Ventilator Mechanical Ventilator 07/07/20 08:00 32 126/82 Mechanical Ventilator 80 07/07/20 08:00 32 126/82 Mechanical Ventilator 80 07/07/20 08:00 100.2 107 32 126/82 (97) 99 07/07/20 07:34 103 27 80 07/07/20 07:00 91 0 110/67 (81) 100 07/07/20 06:45 92 0 100 07/07/20 06:42 22 120/78 Mechanical Ventilator Intake and Output 07/08/20 07/09/20 19:00 07:00 Intake Total 368 ml 277.5 ml Output Total 2175 ml 300 ml Balance -1807 ml -22.5 ml IV Total 368 ml 277.5 ml Output Urine Total 1575 ml 300 ml Gastric Drainage Total 600 ml # Bowel Movements 75 Labs Test 07/06/20 07:35 07/07/20 09:05 07/08/20 05:29 07/08/20 10:45 Arterial Blood pH 7.478 (7.350-7.450) 7.402 (7.350-7.450) Arterial Blood Partial Pressure CO2 57.1 mmHg (35.0-45.0) 81.4 mmHg (35.0-45.0) Arterial Blood Partial Pressure O2 88.5 mmHg (75.0-100.0) 75.7 mmHg (75.0-100.0) Arterial Blood HCO3 41.4 mmol/L (22.0-26.0) 49.5 mmol/L (22.0-26.0) Arterial Blood Oxygen Saturation 96.1 % (95-100) 94.1 % (95-100) Arterial Blood Base Excess 16.0 (-2-2) 22.0 (-2-2) Jeremiah Test Positive Positive White Blood Count 11.9 K/UL (4.8-10.8) 8.0 K/UL (4.8-10.8) Red Blood Count 2.90 M/UL (4.20-5.40) 2.51 M/UL (4.20-5.40) Hemoglobin 8.5 G/DL (12.0-16.0) 7.2 G/DL (12.0-16.0) Hematocrit 27.5 % (37.0-47.0) 24.2 % (37.0-47.0) Mean Corpuscular Volume 95 FL (80-99) 96 FL (80-99) Mean Corpuscular Hemoglobin 29.4 PG (27.0-31.0) 28.6 PG (27.0-31.0) Mean Corpuscular Hemoglobin Concent 31.0 G/DL (32.0-36.0) 29.7 G/DL (32.0-36.0) Red Cell Distribution Width 18.4 % (11.6-14.8) 19.0 % (11.6-14.8) Platelet Count 253 K/UL (150-450) 207 K/UL (150-450) Mean Platelet Volume 7.9 FL (6.5-10.1) 8.1 FL (6.5-10.1) Neutrophils (%) (Auto) 66.9 % (45.0-75.0) % (45.0-75.0) Lymphocytes (%) (Auto) 22.8 % (20.0-45.0) % (20.0-45.0) Monocytes (%) (Auto) 7.5 % (1.0-10.0) % (1.0-10.0) Eosinophils (%) (Auto) 1.5 % (0.0-3.0) % (0.0-3.0) Basophils (%) (Auto) 1.3 % (0.0-2.0) % (0.0-2.0) Differential Total Cells Counted 100 Neutrophils % (Manual) 53 % (45-75) Lymphocytes % (Manual) 27 % (20-45) Monocytes % (Manual) 13 % (1-10) Eosinophils % (Manual) 7 % (0-3) Basophils % (Manual) 0 % (0-2) Band Neutrophils 0 % (0-8) Platelet Estimate Adequate Platelet Morphology Normal Polychromasia 1+ Hypochromasia 1+ Anisocytosis 2+ Stomatocytes Occasional Sodium Level 140 MMOL/L (136-145) Potassium Level 3.8 MMOL/L (3.5-5.1) Chloride Level 97 MMOL/L (98-107) Carbon Dioxide Level 43 MMOL/L (21-32) Blood Urea Nitrogen 14 mg/dL (7-18) Creatinine 0.5 MG/DL (0.55-1.30) Estimat Glomerular Filtration Rate > 60 mL/min (>60) Glucose Level 95 MG/DL (74-106) Uric Acid 2.6 MG/DL (2.6-7.2) Calcium Level 9.5 MG/DL (8.5-10.1) Phosphorus Level 4.4 MG/DL (2.5-4.9) Magnesium Level 1.9 MG/DL (1.8-2.4) Total Bilirubin 1.7 MG/DL (0.2-1.0) Direct Bilirubin 0.4 MG/DL (0.0-0.3) Aspartate Amino Transf (AST/SGOT) 32 U/L (15-37) Alanine Aminotransferase (ALT/SGPT) 21 U/L (12-78) Alkaline Phosphatase 65 U/L (46-116) C-Reactive Protein, Quantitative 27.2 mg/dL (0.00-0.90) Pro-B-Type Natriuretic Peptide 757 pg/mL (0-125) Total Protein 7.2 G/DL (6.4-8.2) Albumin 2.3 G/DL (3.4-5.0) Globulin 4.9 g/dL Albumin/Globulin Ratio 0.5 (1.0-2.7) Height (Feet): 5 Height (Inches): 6.00 Weight (Pounds): 239 Objective GeNL: nv Pulm: vent/trach++ CV: rrr Abd: soft, nt, nd Ext: no cce Myron Condon MD Jul 09, 2020 06:42
[2020-07-09] MEDS ORDERED: Sodium Bicarbonate 4% 2.4meq/5ml vial IV PRN (06:45)
[2020-07-09] MEDS ORDERED: Lidocaine 1% Plain 30 ml INJ PRN (06:45)
--- NOTE | 2020-07-09 07:15 | NUR ---
NURSE NOTES: Report received from Jacob Moss RN. Patient lightly sedated, no resp distress, with trach to vent , settings AC 15,TV 600 Fio2 80%, Peep7. SR on the monitor,NGT to low suction,draining bile colored secretions. Lennon cath with yellow urine,skin warm and dry. Right Femoral TLC intact with Fentanyl drip at 125 mcg/hr and Versed drip at 5 mg/hr. Side Rails up x2 ,HOB elevated bed lock in lowest position, Will continue with plans of care.
[2020-07-09 08:55] LABS: HEMATOCRIT 26.1 % (37.0-47.0); HEMOGLOBIN 7.8 G/DL (12.0-16.0); MEAN CORPUSCULAR VOLUME 93 FL (80-99); PLATELET COUNT 217 K/UL (150-450); RED CELL DISTRIBUTION WIDTH 18.6 % (11.6-14.8); WHITE BLOOD COUNT 8.8 K/UL (4.8-10.8)
[2020-07-09] MEDS: Vitamin D 1000 units Tab GT SCH (09:12)
[2020-07-09] MEDS: Pantoprazole Inj IVP SCH (09:13)
[2020-07-09 09:28] LABS: ALANINE AMINOTRANSFERASE 18 U/L (12-78); ALBUMIN 2.1 G/DL (3.4-5.0); ALBUMIN/GLOBULIN RATIO 0.4 (1.0-2.7); ALKALINE PHOSPHATASE 62 U/L (46-116); ANION GAP 1 mmol/L (5-15); ASPARTATE AMINO TRANSFERASE 28 U/L (15-37); BILIRUBIN,TOTAL 1.9 MG/DL (0.2-1.0); BLOOD UREA NITROGEN 14 mg/dL (7-18); CALCIUM 9.5 MG/DL (8.5-10.1); CHLORIDE 96 MMOL/L (98-107); CREATININE 0.4 MG/DL (0.55-1.30); POTASSIUM 3.6 MMOL/L (3.5-5.1); SODIUM 139 MMOL/L (136-145)
[2020-07-09 09:36] LABS: BILIRUBIN,DIRECT 0.5 MG/DL (0.0-0.3); CARBON DIOXIDE 42 MMOL/L (21-32)
--- NOTE | 2020-07-09 10:28 | NUR ---
NURSE NOTES: Dr. Nava at bedside. Aware of current vet settings. Will try to titrate FiO2 as tolerated.
--- NOTE | 2020-07-09 10:32 | Nephrology Progress Note ---
Assessment/Plan Problem List: (1) DEVENDRA (acute kidney injury) (2) Morbid obesity (3) Diabetes mellitus out of control (4) Pneumonia due to COVID-19 virus (5) Respiratory failure Assessment Acute renal failure Obstructive uropathy, clogged Lennon Respiratory failure COVID-19 pneumonia Morbid obesity Plan July 09: Labs reviewed. Renal parameters stable. FiO2 80% unchanged. Continue per pulmonary. July 08: Labs reviewed. Renal parameters and electrolytes stable. ABG suggestive of high PCO2. At this time patient is on FiO2 of 80%. Continue per pulmonary. Continue to monitor renal parameters. July 07: No CHEM panel drawn today. More potassium given. Continue to monitor renal parameters. Continue per consultants. Discussed with RAKEL Veras. July 06: Low potassium addressed. Albumin bolus for low BP given. Patient remains full code. Continue to monitor electrolytes and renal parameters. Continue per consultants. Hemoglobin low today, transfusion per angle dozer operator. July 05: Trach to vent. FiO2 80%. Renal parameters stable. PCO2 remains high at 44. Continue to monitor renal parameters. July 04: Patient now trach. Full code. Labs reviewed. Renal parameters stable. Low magnesium addressed. July 03: Intubated. Full code. Labs reviewed. Abnormal electrolytes addressed. Continue per consultants. Overall status unchanged. July 02: Remains intubated. Remains full code. Remains on FiO2 of 70%. Lab s reviewed. Abnormal electrolytes addressed. Continue per pulmonary. July 01: Remains on 70% FiO2. Full code. Intubated on ventilator. Retaining CO2. Discussed with RN. Will do ABG today. Albumin bolus given. 1 dose of Diamox given. June 30: Status quo. Labs reviewed. Abnormal electrolytes addressed. Remains full code. Remains on ventilator. Magnesium sulfate 4 gram IVPB given. June 29: Full code. Intubated on ventilator. Labs reviewed. Stable from renal standpoint of view. Continue per consultants. June 28: Remains full code. Remains intubated on ventilator. Labs reviewed. Vitamin D supplement ordered. Continue to monitor renal parameters. Continue per consultants. June 27: Remains full code. Intubated on ventilator. Labs reviewed. Abnormal electrolyte addressed. Continue to monitor renal parameters and electrolytes. Continue per consultants. June 26: Labs reviewed. Remains full code. Remains intubated. Back on NGT feeding. Continue to monitor renal parameters. June 25: Labs reviewed. Renal parameters stable. Remains full code. Due to positional status patient could not be fed via NG tube. Starting TPN? Is being entertained. Continue per consultants. June 24: Labs reviewed. Renal parameters stable. Remains full code. Remains intubated on ventilator. Continue per consultants. June 23: Labs reviewed. Renal parameters stable. Discussed with RN. Abnormal electrolyte addressed. Remains full code. Remains on ventilator. Continue per consultants. June 22: Labs reviewed. Low potassium addressed. Discussed with RAKEL Moran. Patient full code. Remains on ventilator. Continue to monitor renal parameters. June 21. Labs reviewed. Abnormal electrolyte addressed. Full code. Remains on ventilator. Medication list reviewed. Continue per pulmonary management. DC IV fluid, resume Lasix daily, check chest x-ray. June 20: Labs reviewed. Abnormal electrolytes. Patient remains full code. Continue per consultants. Noted and addressed June 19: Labs reviewed. Abnormal electrolytes noted and addressed. Remains intubated on ventilator. Remains full code. June 18: Labs reviewed. Remains intubated on ventilator. Full code. Abnormal electrolyte addressed. Continue as is. June 17: Labs reviewed. Abnormal electrolytes addressed. Patient remains full code and intubated on ventilator. Continue per consultants. Renal parameters are within normal limits. June 16: Labs reviewed. Potassium chloride replaced. Remains full code. Re anton intubated on ventilator. Continue per consultants. Continue to monitor renal parameters. June 15: Labs reviewed. Serum creatinine 1. Stable from renal standpoint to view. Continue per consultants. June 14: Labs reviewed. Full code. Serum creatinine of 3.5 down to 1.4. Low potassium addressed. Continue per current treatment plan. Continue to monitor renal parameters. Midodrine started. Albumin bolus given. Previously: DC Lasix drip Increase Protonix dose Monitor renal parameters, electrolytes Per orders Subjective ROS Limited/Unobtainable: Yes Objective Objective Last 24 Hour Vital Signs Date Time Temp Pulse Resp B/P (MAP) Pulse Ox O2 Delivery O2 Flow Rate FiO2 07/09/20 10:00 82 19 95/51 (66) 99 07/09/20 09:45 84 17 97/57 (70) 99 07/09/20 09:30 91 22 102/66 (78) 99 07/09/20 09:00 87 20 97/58 (71) 100 07/09/20 08:00 98.1 75 16 98/59 (72) 100 07/09/20 08:00 Mechanical Ventilator Mechanical Ventilator 07/09/20 08:00 80 07/09/20 07:45 75 07/09/20 07:00 74 17 99/50 (66) 100 07/09/20 06:00 75 17 95/55 (68) 100 07/09/20 05:30 72 16 90/44 (59) 100 07/09/20 05:00 73 18 96/57 (70) 100 07/09/20 04:44 73 16 91/66 (74) 100 07/09/20 04:35 73 16 75/47 (56) 100 07/09/20 04:30 71 15 70/46 (54) 100 07/09/20 04:09 76 17 87/53 (64) 100 07/09/20 04:03 75 19 71/48 (56) 100 07/09/20 04:00 72 07/09/20 04:00 80 07/09/20 04:00 98.0 77 15 80/49 (59) 100 07/09/20 04:00 Mechanical Ventilator Mechanical Ventilator 07/09/20 03:51 79 19 80 07/09/20 03:30 78 20 83/54 (64) 100 07/09/20 03:29 79 21 76/43 (54) 100 07/09/20 03:00 93 16 07/09/20 02:30 68 14 94/61 (72) 100 07/09/20 02:00 72 15 102/62 (75) 100 07/09/20 01:00 80 16 95/58 (70) 100 07/09/20 00:30 93 27 105/66 (79) 97 07/09/20 00:00 97.8 07/09/20 00:00 Mechanical Ventilator Mechanical Ventilator 07/09/20 00:00 80 07/09/20 00:00 76 15 90/65 (73) 100 07/09/20 00:00 76 07/08/20 23:41 72 15 80 07/08/20 23:33 20 84/55 07/08/20 23:00 69 15 87/58 (68) 100 07/08/20 22:45 67 16 100 07/08/20 22:30 69 15 90/55 (67) 100 07/08/20 22:17 68 19 93/60 (71) 100 07/08/20 22:15 68 16 100 07/08/20 22:00 70 15 87/51 (63) 100 07/08/20 21:45 69 15 100 07/08/20 21:30 71 15 87/53 (64) 100 07/08/20 21:15 73 15 100 07/08/20 21:00 79 19 91/58 (69) 100 07/08/20 20:02 20 82/52 Mechanical Ventilator 07/08/20 20:00 98.9 76 16 82/52 (62) 100 07/08/20 20:00 Mechanical Ventilator Mechanical Ventilator 07/08/20 20:00 80 07/08/20 20:00 82 07/08/20 19:51 89 18 80 07/08/20 19:00 15 90/57 Mechanical Ventilator 80 07/08/20 19:00 15 90/57 Mechanical Ventilator 80 07/08/20 19:00 99.7 79 16 90/59 (69) 100 07/08/20 18:56 98.8 07/08/20 18:00 16 91/56 Mechanical Ventilator 80 07/08/20 18:00 16 91/52 Mechanical Ventilator 80 07/08/20 18:00 99.7 86 16 91/52 (65) 100 07/08/20 17:00 17 97/56 Mechanical Ventilator 80 07/08/20 17:00 17 97/56 Mechanical Ventilator 80 07/08/20 17:00 90 17 97/56 (70) 100 07/08/20 16:00 100.1 100 25 102/63 (76) 100 07/08/20 16:00 Mechanical Ventilator Mechanical Ventilator 07/08/20 16:00 80 07/08/20 16:00 25 102/63 Mechanical Ventilator 80 07/08/20 16:00 25 102/63 Mechanical Ventilator 80 07/08/20 16:00 111 07/08/20 15:00 99 19 106/70 (82) 100 07/08/20 15:00 20 106/70 Mechanical Ventilator 80 07/08/20 15:00 20 106/70 Mechanical Ventilator 80 07/08/20 14:00 108 21 104/68 (80) 100 07/08/20 14:00 18 104/68 Mechanical Ventilator 80 07/08/20 14:00 18 104/68 Mechanical Ventilator 80 07/08/20 13:19 102 22 80 07/08/20 13:00 110 19 126/78 (94) 95 07/08/20 13:00 19 126/78 Mechanical Ventilator 80 07/08/20 13:00 19 126/78 Mechanical Ventilator 80 07/08/20 12:00 Mechanical Ventilator Mechanical Ventilator 07/08/20 12:00 80 07/08/20 12:00 98.2 110 16 125/93 (104) 95 07/08/20 12:00 19 125/93 Mechanical Ventilator 80 07/08/20 12:00 19 125/93 80 07/08/20 12:00 108 07/08/20 11:00 21 117/67 Mechanical Ventilator 80 07/08/20 11:00 29 117/67 Mechanical Ventilator 80 07/08/20 11:00 105 17 117/67 (84) 95 Intake and Output 07/08/20 07/09/20 19:00 07:00 Intake Total 368 ml 277.5 ml Output Total 2175 ml 320 ml Balance -1807 ml -42.5 ml IV Total 368 ml 277.5 ml Output Urine Total 1575 ml 320 ml Gastric Drainage Total 600 ml # Bowel Movements 75 Current Medications Medications (Trade) Dose Ordered Sig/Zelda Route PRN Reason Start Time Stop Time Status Last Admin Dose Admin Acetaminophen (Tylenol) 650 mg Q4H PRN NG Temp >100.5 06/29/20 10:15 07/29/20 10:14 07/08/20 18:26 Acetaminophen (Tylenol) 650 mg Q6H PRN NG Mild Pain (Pain Scale 1-3) 06/29/20 10:15 07/29/20 10:14 Chlorhexidine Gluconate (Inna-Hex 2%) 1 applic DAILY@2000 TOPIC 05/30/20 20:00 08/28/20 19:59 07/08/20 19:58 Dextrose (Dextrose 50%) 25 ml Q30M PRN IV Hypoglycemia 06/05/20 10:45 09/03/20 10:44 Dextrose (Dextrose 50%) 50 ml Q30M PRN IV Hypoglycemia 06/05/20 10:45 09/03/20 10:44 Fentanyl Citrate 250 ml @ 1 mls/hr Q24H IV 07/07/20 19:00 07/09/20 18:59 07/08/20 20:02 Furosemide (Lasix) 40 mg DAILY IV 06/22/20 09:00 07/22/20 08:59 07/09/20 09:13 Lidocaine HCl (Xylocaine 1% 30ml) 30 ml NOW PRN INJ Radiology Procedure 07/09/20 06:45 07/12/20 06:44 Midazolam HCl 200 ml @ 0 mls/hr Q24H PRN IV Agitation 07/08/20 07:00 07/10/20 06:59 07/08/20 23:33 Midodrine (Pro-Amatine) 10 mg Q8HR GT 06/30/20 14:00 09/12/20 13:59 07/09/20 06:23 Pantoprazole (Protonix) 40 mg EVERY 12 HOURS IVP 07/08/20 21:00 08/07/20 20:59 07/09/20 09:13 Sodium Bicarbonate (Sodium Bicarbonate 4%) 1 ml NOW PRN IV Radiology Procedure 07/09/20 06:45 07/12/20 06:44 Vitamin D (Vitamin D) 5,000 unit DAILY GT 06/28/20 09:00 07/28/20 08:59 07/09/20 09:12 Laboratory Tests 07/08/20 10:45: Arterial Blood pH 7.402, Arterial Blood Partial Pressure CO2 81.4*H, Arterial Blood Partial Pressure O2 75.7, Arterial Blood HCO3 49.5*H, Arterial Blood Oxygen Saturation 94.1L, Arterial Blood Base Excess 22.0*H, Jeremiah Test Positive 07/09/20 08:43: White Blood Count 8.8, Red Blood Count 2.80L, Hemoglobin 7.8L, Hematocrit 26.1L, Mean Corpuscular Volume 93, Mean Corpuscular Hemoglobin 28.0, Mean Corpuscular Hemoglobin Concent 29.9L, Red Cell Distribution Width 18.6H, Platelet Count 217, Mean Platelet Volume 8.0, Neutrophils (%) (Auto) , Lymphocytes (%) (Auto) , Monocytes (%) (Auto) , Eosinophils (%) (Auto) , Basophils (%) (Auto) , Differential Total Cells Counted 100, Neutrophils % (Manual) 60, Lymphocytes % (Manual) 22, Monocytes % (Manual) 8, Eosinophils % (Manual) 10H, Basophils % (Manual) 0, Band Neutrophils 0, Platelet Estimate Adequate, Platelet Morphology Normal, Hypochromasia 1+, Anisocytosis 1+, Stomatocytes 1+, Sodium Level 139, Potassium Level 3.6, Chloride Level 96L, Carbon Dioxide Level 42*H, Anion Gap 1L , Blood Urea Nitrogen 14, Creatinine 0.4L, Estimat Glomerular Filtration Rate > 60, Glucose Level 87, Calcium Level 9.5, Total Bilirubin 1.9H, Direct Bilirubin 0.5H, Aspartate Amino Transf (AST/SGOT) 28, Alanine Aminotransferase (ALT/SGPT) 18, Alkaline Phosphatase 62, Total Protein 7.0, Albumin 2.1L, Globulin 4.9, Albumin/Globulin Ratio 0.4L Height (Feet): 5 Height (Inches): 6.00 Weight (Pounds): 239 General Appearance: no apparent distress EENT: other - Trach to vent Cardiovascular: normal rate Respiratory/Chest: decreased breath sounds Abdomen: distended Rigo Tyler MD Jul 09, 2020 10:32
--- NOTE | 2020-07-09 11:10 | Infectious Diseases Prog Note ---
Assessment/Plan Assessment/Plan antibiotics : none A 1. covid 19 pneumonia on 60 % Fi O2 with 100 % saturation s/p remdesivir s/p solumedrol 2. respiratory failure 3. serratia pneumonia s/p rx P 1. continue off antibiotics 2. continue isolation Subjective ROS Limited/Unobtainable: Yes Allergies: Coded Allergies: No Known Allergies (Unverified , 05/28/20) Objective Last 24 Hour Vital Signs Date Time Temp Pulse Resp B/P (MAP) Pulse Ox O2 Delivery O2 Flow Rate FiO2 07/09/20 11:00 18 95/55 Mechanical Ventilator 60 07/09/20 10:53 60 07/09/20 10:52 60 07/09/20 10:30 80 18 94/54 (67) 100 07/09/20 10:15 96 20 105/73 (84) 98 07/09/20 10:00 19 95/51 Mechanical Ventilator 80 07/09/20 10:00 82 19 95/51 (66) 99 07/09/20 09:45 84 17 97/57 (70) 99 07/09/20 09:45 17 97/57 Mechanical Ventilator 80 07/09/20 09:30 91 22 102/66 (78) 99 07/09/20 09:30 22 102/66 Mechanical Ventilator 80 07/09/20 09:00 20 97/58 Mechanical Ventilator 80 07/09/20 09:00 87 20 97/58 (71) 100 07/09/20 08:00 98.1 75 16 98/59 (72) 100 07/09/20 08:00 16 98/59 Mechanical Ventilator 80 07/09/20 08:00 Mechanical Ventilator Mechanical Ventilator 07/09/20 08:00 80 07/09/20 07:45 75 07/09/20 07:40 84 18 80 07/09/20 07:00 74 17 99/50 (66) 100 07/09/20 07:00 17 99/50 Mechanical Ventilator 80 07/09/20 06:00 75 17 95/55 (68) 100 07/09/20 05:30 72 16 90/44 (59) 100 07/09/20 05:00 73 18 96/57 (70) 100 07/09/20 04:44 73 16 91/66 (74) 100 07/09/20 04:35 73 16 75/47 (56) 100 07/09/20 04:30 71 15 70/46 (54) 100 07/09/20 04:09 76 17 87/53 (64) 100 07/09/20 04:03 75 19 71/48 (56) 100 07/09/20 04:00 72 07/09/20 04:00 80 07/09/20 04:00 98.0 77 15 80/49 (59) 100 07/09/20 04:00 Mechanical Ventilator Mechanical Ventilator 07/09/20 03:51 79 19 80 07/09/20 03:30 78 20 83/54 (64) 100 07/09/20 03:29 79 21 76/43 (54) 100 07/09/20 03:00 93 16 07/09/20 02:30 68 14 94/61 (72) 100 07/09/20 02:00 72 15 102/62 (75) 100 07/09/20 01:00 80 16 95/58 (70) 100 07/09/20 00:30 93 27 105/66 (79) 97 07/09/20 00:00 97.8 07/09/20 00:00 Mechanical Ventilator Mechanical Ventilator 07/09/20 00:00 80 07/09/20 00:00 76 15 90/65 (73) 100 07/09/20 00:00 76 07/08/20 23:41 72 15 80 07/08/20 23:33 20 84/55 07/08/20 23:00 69 15 87/58 (68) 100 07/08/20 22:45 67 16 100 07/08/20 22:30 69 15 90/55 (67) 100 07/08/20 22:17 68 19 93/60 (71) 100 07/08/20 22:15 68 16 100 07/08/20 22:00 70 15 87/51 (63) 100 07/08/20 21:45 69 15 100 07/08/20 21:30 71 15 87/53 (64) 100 07/08/20 21:15 73 15 100 07/08/20 21:00 79 19 91/58 (69) 100 07/08/20 20:02 20 82/52 Mechanical Ventilator 07/08/20 20:00 98.9 76 16 82/52 (62) 100 07/08/20 20:00 Mechanical Ventilator Mechanical Ventilator 07/08/20 20:00 80 07/08/20 20:00 82 07/08/20 19:51 89 18 80 07/08/20 19:00 15 90/57 Mechanical Ventilator 80 07/08/20 19:00 15 90/57 Mechanical Ventilator 80 07/08/20 19:00 99.7 79 16 90/59 (69) 100 07/08/20 18:56 98.8 07/08/20 18:00 16 91/56 Mechanical Ventilator 80 07/08/20 18:00 16 91/52 Mechanical Ventilator 80 07/08/20 18:00 99.7 86 16 91/52 (65) 100 07/08/20 17:00 17 97/56 Mechanical Ventilator 80 07/08/20 17:00 17 97/56 Mechanical Ventilator 80 07/08/20 17:00 90 17 97/56 (70) 100 07/08/20 16:00 100.1 100 25 102/63 (76) 100 07/08/20 16:00 Mechanical Ventilator Mechanical Ventilator 07/08/20 16:00 80 07/08/20 16:00 25 102/63 Mechanical Ventilator 80 07/08/20 16:00 25 102/63 Mechanical Ventilator 80 07/08/20 16:00 111 07/08/20 15:00 99 19 106/70 (82) 100 07/08/20 15:00 20 106/70 Mechanical Ventilator 80 07/08/20 15:00 20 106/70 Mechanical Ventilator 80 07/08/20 14:00 108 21 104/68 (80) 100 07/08/20 14:00 18 104/68 Mechanical Ventilator 80 07/08/20 14:00 18 104/68 Mechanical Ventilator 80 07/08/20 13:19 102 22 80 07/08/20 13:00 110 19 126/78 (94) 95 07/08/20 13:00 19 126/78 Mechanical Ventilator 80 07/08/20 13:00 19 126/78 Mechanical Ventilator 80 07/08/20 12:00 Mechanical Ventilator Mechanical Ventilator 07/08/20 12:00 80 07/08/20 12:00 98.2 110 16 125/93 (104) 95 07/08/20 12:00 19 125/93 Mechanical Ventilator 80 07/08/20 12:00 19 125/93 80 07/08/20 12:00 108 Height (Feet): 5 Height (Inches): 6.00 Weight (Pounds): 239 HEENT: status post trach Laboratory Tests Test 07/09/20 08:43 07/09/20 10:17 White Blood Count 8.8 K/UL (4.8-10.8) Red Blood Count 2.80 M/UL (4.20-5.40) L Hemoglobin 7.8 G/DL (12.0-16.0) L Hematocrit 26.1 % (37.0-47.0) L Mean Corpuscular Volume 93 FL (80-99) Mean Corpuscular Hemoglobin 28.0 PG (27.0-31.0) Mean Corpuscular Hemoglobin Concent 29.9 G/DL (32.0-36.0) L Red Cell Distribution Width 18.6 % (11.6-14.8) H Platelet Count 217 K/UL (150-450) Mean Platelet Volume 8.0 FL (6.5-10.1) Neutrophils (%) (Auto) % (45.0-75.0) Lymphocytes (%) (Auto) % (20.0-45.0) Monocytes (%) (Auto) % (1.0-10.0) Eosinophils (%) (Auto) % (0.0-3.0) Basophils (%) (Auto) % (0.0-2.0) Differential Total Cells Counted 100 Neutrophils % (Manual) 60 % (45-75) Lymphocytes % (Manual) 22 % (20-45) Monocytes % (Manual) 8 % (1-10) Eosinophils % (Manual) 10 % (0-3) H Basophils % (Manual) 0 % (0-2) Band Neutrophils 0 % (0-8) Platelet Estimate Adequate Platelet Morphology Normal Hypochromasia 1+ Anisocytosis 1+ Stomatocytes 1+ Sodium Level 139 MMOL/L (136-145) Potassium Level 3.6 MMOL/L (3.5-5.1) Chloride Level 96 MMOL/L (98-107) L Carbon Dioxide Level 42 MMOL/L (21-32) *H Anion Gap 1 mmol/L (5-15) L Blood Urea Nitrogen 14 mg/dL (7-18) Creatinine 0.4 MG/DL (0.55-1.30) L Estimat Glomerular Filtration Rate > 60 mL/min (>60) Glucose Level 87 MG/DL (74-106) Calcium Level 9.5 MG/DL (8.5-10.1) Total Bilirubin 1.9 MG/DL (0.2-1.0) H Direct Bilirubin 0.5 MG/DL (0.0-0.3) H Aspartate Amino Transf (AST/SGOT) 28 U/L (15-37) Alanine Aminotransferase (ALT/SGPT) 18 U/L (12-78) Alkaline Phosphatase 62 U/L (46-116) Total Protein 7.0 G/DL (6.4-8.2) Albumin 2.1 G/DL (3.4-5.0) L Globulin 4.9 g/dL Albumin/Globulin Ratio 0.4 (1.0-2.7) L Arterial Blood pH 7.469 (7.350-7.450) Arterial Blood Partial Pressure CO2 57.3 mmHg (35.0-45.0) *H Arterial Blood Partial Pressure O2 104.2 mmHg (75.0-100.0) H Arterial Blood HCO3 40.7 mmol/L (22.0-26.0) *H Arterial Blood Oxygen Saturation 97.3 % (95-100) Arterial Blood Base Excess 15.1 (-2-2) *H Jeremiah Test Positive Current Medications Medications (Trade) Dose Ordered Sig/Zelda Route PRN Reason Start Time Stop Time Status Last Admin Dose Admin Acetaminophen (Tylenol) 650 mg Q4H PRN NG Temp >100.5 06/29/20 10:15 07/29/20 10:14 07/08/20 18:26 Acetaminophen (Tylenol) 650 mg Q6H PRN NG Mild Pain (Pain Scale 1-3) 06/29/20 10:15 07/29/20 10:14 Chlorhexidine Gluconate (Inna-Hex 2%) 1 applic DAILY@2000 TOPIC 05/30/20 20:00 08/28/20 19:59 07/08/20 19:58 Dextrose (Dextrose 50%) 25 ml Q30M PRN IV Hypoglycemia 06/05/20 10:45 09/03/20 10:44 Dextrose (Dextrose 50%) 50 ml Q30M PRN IV Hypoglycemia 06/05/20 10:45 09/03/20 10:44 Fentanyl Citrate 250 ml @ 1 mls/hr Q24H IV 07/07/20 19:00 07/09/20 18:59 07/08/20 20:02 Furosemide (Lasix) 40 mg DAILY IV 06/22/20 09:00 07/22/20 08:59 07/09/20 09:13 Lidocaine HCl (Xylocaine 1% 30ml) 30 ml NOW PRN INJ Radiology Procedure 07/09/20 06:45 07/12/20 06:44 Midazolam HCl 200 ml @ 0 mls/hr Q24H PRN IV Agitation 07/08/20 07:00 07/10/20 06:59 07/08/20 23:33 Midodrine (Pro-Amatine) 10 mg Q8HR GT 06/30/20 14:00 09/12/20 13:59 07/09/20 06:23 Pantoprazole (Protonix) 40 mg EVERY 12 HOURS IVP 07/08/20 21:00 08/07/20 20:59 07/09/20 09:13 Sodium Bicarbonate (Sodium Bicarbonate 4%) 1 ml NOW PRN IV Radiology Procedure 07/09/20 06:45 07/12/20 06:44 Vitamin D (Vitamin D) 5,000 unit DAILY GT 06/28/20 09:00 07/28/20 08:59 07/09/20 09:12 Fili Mcelroy MD Jul 09, 2020 11:10
--- NOTE | 2020-07-09 11:30 | Pulmonology Progress Note ---
Subjective ROS Limited/Unobtainable: Yes Interval Events: S/p tracheostomy 07/04/20 Constitutional: Reports: fever, other - T=100 HEENT: Repors: no symptoms Respiratory: Reports: no symptoms Cardiovascular: Reports: no symptoms Gastrointestinal/Abdominal: Reports: no symptoms Genitourinary: Reports: no symptoms Allergies: Coded Allergies: No Known Allergies (Unverified , 05/28/20) All Systems: reviewed and negative except above Objective Last 24 Hour Vital Signs Date Time Temp Pulse Resp B/P (MAP) Pulse Ox O2 Delivery O2 Flow Rate FiO2 07/09/20 11:18 70 07/09/20 11:00 18 95/55 Mechanical Ventilator 60 07/09/20 10:53 60 07/09/20 10:52 60 07/09/20 10:30 80 18 94/54 (67) 100 07/09/20 10:15 96 20 105/73 (84) 98 07/09/20 10:00 19 95/51 Mechanical Ventilator 80 07/09/20 10:00 82 19 95/51 (66) 99 07/09/20 09:45 84 17 97/57 (70) 99 07/09/20 09:45 17 97/57 Mechanical Ventilator 80 07/09/20 09:30 91 22 102/66 (78) 99 07/09/20 09:30 22 102/66 Mechanical Ventilator 80 07/09/20 09:00 20 97/58 Mechanical Ventilator 80 07/09/20 09:00 87 20 97/58 (71) 100 07/09/20 08:00 98.1 75 16 98/59 (72) 100 07/09/20 08:00 16 98/59 Mechanical Ventilator 80 07/09/20 08:00 Mechanical Ventilator Mechanical Ventilator 07/09/20 08:00 80 07/09/20 07:45 75 07/09/20 07:40 84 18 80 07/09/20 07:00 74 17 99/50 (66) 100 07/09/20 07:00 17 99/50 Mechanical Ventilator 80 07/09/20 06:00 75 17 95/55 (68) 100 07/09/20 05:30 72 16 90/44 (59) 100 07/09/20 05:00 73 18 96/57 (70) 100 07/09/20 04:44 73 16 91/66 (74) 100 07/09/20 04:35 73 16 75/47 (56) 100 07/09/20 04:30 71 15 70/46 (54) 100 07/09/20 04:09 76 17 87/53 (64) 100 07/09/20 04:03 75 19 71/48 (56) 100 07/09/20 04:00 72 07/09/20 04:00 80 07/09/20 04:00 98.0 77 15 80/49 (59) 100 07/09/20 04:00 Mechanical Ventilator Mechanical Ventilator 07/09/20 03:51 79 19 80 07/09/20 03:30 78 20 83/54 (64) 100 07/09/20 03:29 79 21 76/43 (54) 100 07/09/20 03:00 93 16 07/09/20 02:30 68 14 94/61 (72) 100 07/09/20 02:00 72 15 102/62 (75) 100 07/09/20 01:00 80 16 95/58 (70) 100 07/09/20 00:30 93 27 105/66 (79) 97 07/09/20 00:00 97.8 07/09/20 00:00 Mechanical Ventilator Mechanical Ventilator 07/09/20 00:00 80 07/09/20 00:00 76 15 90/65 (73) 100 07/09/20 00:00 76 07/08/20 23:41 72 15 80 07/08/20 23:33 20 84/55 07/08/20 23:00 69 15 87/58 (68) 100 07/08/20 22:45 67 16 100 07/08/20 22:30 69 15 90/55 (67) 100 07/08/20 22:17 68 19 93/60 (71) 100 07/08/20 22:15 68 16 100 07/08/20 22:00 70 15 87/51 (63) 100 07/08/20 21:45 69 15 100 07/08/20 21:30 71 15 87/53 (64) 100 07/08/20 21:15 73 15 100 07/08/20 21:00 79 19 91/58 (69) 100 07/08/20 20:02 20 82/52 Mechanical Ventilator 07/08/20 20:00 98.9 76 16 82/52 (62) 100 07/08/20 20:00 Mechanical Ventilator Mechanical Ventilator 07/08/20 20:00 80 07/08/20 20:00 82 07/08/20 19:51 89 18 80 07/08/20 19:00 15 90/57 Mechanical Ventilator 80 07/08/20 19:00 15 90/57 Mechanical Ventilator 80 07/08/20 19:00 99.7 79 16 90/59 (69) 100 07/08/20 18:56 98.8 07/08/20 18:00 16 91/56 Mechanical Ventilator 80 07/08/20 18:00 16 91/52 Mechanical Ventilator 80 07/08/20 18:00 99.7 86 16 91/52 (65) 100 07/08/20 17:00 17 97/56 Mechanical Ventilator 80 07/08/20 17:00 17 97/56 Mechanical Ventilator 80 07/08/20 17:00 90 17 97/56 (70) 100 07/08/20 16:00 100.1 100 25 102/63 (76) 100 07/08/20 16:00 Mechanical Ventilator Mechanical Ventilator 07/08/20 16:00 80 07/08/20 16:00 25 102/63 Mechanical Ventilator 80 07/08/20 16:00 25 102/63 Mechanical Ventilator 80 07/08/20 16:00 111 07/08/20 15:00 99 19 106/70 (82) 100 07/08/20 15:00 20 106/70 Mechanical Ventilator 80 07/08/20 15:00 20 106/70 Mechanical Ventilator 80 07/08/20 14:00 108 21 104/68 (80) 100 07/08/20 14:00 18 104/68 Mechanical Ventilator 80 07/08/20 14:00 18 104/68 Mechanical Ventilator 80 07/08/20 13:19 102 22 80 07/08/20 13:00 110 19 126/78 (94) 95 07/08/20 13:00 19 126/78 Mechanical Ventilator 80 07/08/20 13:00 19 126/78 Mechanical Ventilator 80 07/08/20 12:00 Mechanical Ventilator Mechanical Ventilator 07/08/20 12:00 80 07/08/20 12:00 98.2 110 16 125/93 (104) 95 07/08/20 12:00 19 125/93 Mechanical Ventilator 80 07/08/20 12:00 19 125/93 80 07/08/20 12:00 108 Intake and Output 07/08/20 07/09/20 19:00 07:00 Intake Total 368 ml 290.0 ml Output Total 2175 ml 320 ml Balance -1807 ml -30.0 ml IV Total 368 ml 290.0 ml Output Urine Total 1575 ml 320 ml Gastric Drainage Total 600 ml # Bowel Movements 75 General Appearance: no acute distress HEENT: normocephalic, status post trach Respiratory: chest wall non-tender Cardiovascular: normal peripheral pulses Abdomen: normal bowel sounds Laboratory Tests 07/09/20 08:43: White Blood Count 8.8, Red Blood Count 2.80L, Hemoglobin 7.8L, Hematocrit 26.1L, Mean Corpuscular Volume 93, Mean Corpuscular Hemoglobin 28.0, Mean Corpuscular Hemoglobin Concent 29.9L, Red Cell Distribution Width 18.6H, Platelet Count 217, Mean Platelet Volume 8.0, Neutrophils (%) (Auto) , Lymphocytes (%) (Auto) , Monocytes (%) (Auto) , Eosinophils (%) (Auto) , Basophils (%) (Auto) , Differential Total Cells Counted 100, Neutrophils % (Manual) 60, Lymphocytes % (Manual) 22, Monocytes % (Manual) 8, Eosinophils % (Manual) 10H, Basophils % (Manual) 0, Band Neutrophils 0, Platelet Estimate Adequate, Platelet Morphology Normal, Hypochromasia 1+, Anisocytosis 1+, Stomatocytes 1+, Sodium Level 139, Potassium Level 3.6, Chloride Level 96L, Carbon Dioxide Level 42*H, Anion Gap 1L , Blood Urea Nitrogen 14, Creatinine 0.4L, Estimat Glomerular Filtration Rate > 60, Glucose Level 87, Calcium Level 9.5, Total Bilirubin 1.9H, Direct Bilirubin 0.5H, Aspartate Amino Transf (AST/SGOT) 28, Alanine Aminotransferase (ALT/SGPT) 18, Alkaline Phosphatase 62, Total Protein 7.0, Albumin 2.1L, Globulin 4.9, Albumin/Globulin Ratio 0.4L 07/09/20 10:17: Arterial Blood pH 7.469H, Arterial Blood Partial Pressure CO2 57.3*H, Arterial Blood Partial Pressure O2 104.2H, Arterial Blood HCO3 40.7*H, Arterial Blood Oxygen Saturation 97.3, Arterial Blood Base Excess 15.1*H, Jeremiah Test Positive Current Medications Medications (Trade) Dose Ordered Sig/Zelda Route PRN Reason Start Time Stop Time Status Last Admin Dose Admin Acetaminophen (Tylenol) 650 mg Q4H PRN NG Temp >100.5 06/29/20 10:15 07/29/20 10:14 07/08/20 18:26 Acetaminophen (Tylenol) 650 mg Q6H PRN NG Mild Pain (Pain Scale 1-3) 06/29/20 10:15 07/29/20 10:14 Chlorhexidine Gluconate (Inna-Hex 2%) 1 applic DAILY@2000 TOPIC 05/30/20 20:00 08/28/20 19:59 07/08/20 19:58 Dextrose (Dextrose 50%) 25 ml Q30M PRN IV Hypoglycemia 06/05/20 10:45 09/03/20 10:44 Dextrose (Dextrose 50%) 50 ml Q30M PRN IV Hypoglycemia 06/05/20 10:45 09/03/20 10:44 Fentanyl Citrate 250 ml @ 10.5 mls/hr Q24H IV 07/09/20 12:00 07/11/20 11:59 Furosemide (Lasix) 40 mg DAILY IV 06/22/20 09:00 07/22/20 08:59 07/09/20 09:13 Lidocaine HCl (Xylocaine 1% 30ml) 30 ml NOW PRN INJ Radiology Procedure 07/09/20 06:45 07/12/20 06:44 Midazolam HCl 200 ml @ 0 mls/hr Q24H PRN IV Agitation 07/08/20 07:00 07/10/20 06:59 07/08/20 23:33 Midodrine (Pro-Amatine) 10 mg Q8HR GT 06/30/20 14:00 09/12/20 13:59 07/09/20 06:23 Pantoprazole (Protonix) 40 mg EVERY 12 HOURS IVP 07/08/20 21:00 08/07/20 20:59 07/09/20 09:13 Sodium Bicarbonate (Sodium Bicarbonate 4%) 1 ml NOW PRN IV Radiology Procedure 07/09/20 06:45 07/12/20 06:44 Vitamin D (Vitamin D) 5,000 unit DAILY GT 06/28/20 09:00 07/28/20 08:59 07/09/20 09:12 Assessment/Plan Assessment/Plan 1. COVID-19 pneumonia -Intubated 05/28/20 - We will continue broad-spectrum antibiotics. -s/p solumedrol, Rocephin -Continue PEEP 6 ->7 - Peak airway pressures high; 42 - FiO2 100% -> 90 ->80->60 ->40 ->80 ->100 ->80 -70; now back up to 80% -will continue OGT feeding -Continue sedation; Need to keep patient completely sedated. 2. Hyponatremia -Per primary MD 3. Elevated inflammatory markers - has high D dimer; Lovenox re-started 4. Decrease PEEP Continue weaning efforts S/p trach Discussed with surgery Off IV fluids Begin dc planning to subacute; will need to wean down O2 prior to transfer Javier Nava MD Jul 09, 2020 11:30
--- NOTE | 2020-07-09 11:46 | NUR ---
RD ASSESSMENT & RECOMMENDATIONS SEE CARE ACTIVITY FOR COMPLETE ASSESSMENT DAILY ESTIMATED NEEDS: Needs based on Critical care, obesity 11-14kcal/kg actual body wt (140kg) kcals/kg 9227-4364 total kcals 1.5-2.0g prot/kg IBW (64.5kg) g protein/kg 96-129 g total protein 25-30ml/kg abw (83kg) mL/kg 6132-5746 total fluid mLs NUTRITION DIAGNOSIS: Swallowing difficulty R/T respiratory failure as evidenced by pt now s/p trach placement (07/04), sedated, NPO at this time w/ NGT to LIS. CURRENT TF:NPO, w/ NGT to LIS ENTERAL NUTRITION RECOMMENDATIONS: Glucerna 1.2 @ 55ml/hr x 24 hrs + Prosource 1pkt BID to provide 1320ml, 1584kcal, 79g+22g prot, 1063ml free water * As medically appropriate, initiate Glucerna 1.2 @ 15ml/hr x 6hrs * Advance 10ml q 4-6 hrs as tolerated to goal rate. * Add Prosource 1pkt BID (additional 22g prot) to meet protein needs * HOB over 30 degrees/ water flush per MD ADDITIONAL RECOMMENDATIONS: * Calibrated bedscale wt * Monitor Propofol rate, need for TF adjustment-> now off * Monitor BGs closely : now improved, on NISS only * Pt w/ rectal tube- Colace and Miralax now dc'ed * Monitor NPO status: TF held since 07/07, now w/ NGT w/ LIS -> monitor need for PN .
[2020-07-09] MEDS: fentaNYL 2500mcg/NS 250ml 250 ML IV SCH (12:43)
--- NOTE | 2020-07-09 14:15 | NUR ---
CASE MANAGEMENT:REVIEW 07/09/20 SI: COVID PNEUMONIA POD #2...S/P TRACHEOSTOMY AND BRONCHOSCOPY 97 30 1105/53 95% ON VENT SUPPORT W/70% FIO2 PEEP~7.0 H/H-7.8/26.1 PCO2+57.3 HCO3+40.7 IS:VERSED GTT FENTANYL GTT IV LASIX QD IV PROTONIX Q12 LOVENOX SQ QD IVF@50/HR MIDODRINE NG Q8HRS : ICU STATUS DCP: FROM HOME PLAN: WILL NEED SUBACUTE PLACEMENT OR LTACH
--- NOTE | 2020-07-09 15:08 | NUR ---
INSURANCE CLINICALS AND REVIEWS FAXED TO [facility] T: [phone] EXT [phone] F: [phone]
[2020-07-09] MEDS: Versed 100mg/NS 200ml 200 ML IV PRN (16:29)
--- NOTE | 2020-07-09 17:18 | Surgery Progress Note ---
Surgery Progress Note Subjective Procedure Performed right femoral central venous line insertion Additional Comments ill appearing on support no n/v labs noted exam unchanged cont weaning Objective Last 24 Hour Vital Signs Date Time Temp Pulse Resp B/P (MAP) Pulse Ox O2 Delivery O2 Flow Rate FiO2 07/09/20 17:00 92 23 120/69 (86) 99 07/09/20 16:29 21 109/59 Mechanical Ventilator 70 07/09/20 16:00 Mechanical Ventilator Mechanical Ventilator 07/09/20 16:00 95 07/09/20 16:00 99.1 102 23 104/78 (87) 95 07/09/20 16:00 70 07/09/20 16:00 23 104/78 Mechanical Ventilator 70 07/09/20 16:00 23 104/78 Mechanical Ventilator 70 07/09/20 15:00 92 20 105/63 (77) 98 07/09/20 15:00 20 105/63 Mechanical Ventilator 70 07/09/20 15:00 20 105/63 Mechanical Ventilator 70 07/09/20 14:45 94 20 106/61 (76) 98 07/09/20 14:30 95 18 112/65 (81) 95 07/09/20 14:15 99 24 109/68 (82) 97 07/09/20 14:00 16 125/67 Mechanical Ventilator 70 07/09/20 14:00 16 125/67 Mechanical Ventilator 70 07/09/20 14:00 91 16 125/67 (86) 98 07/09/20 13:45 19 119/66 Mechanical Ventilator 70 07/09/20 13:45 89 19 119/66 (83) 99 07/09/20 13:30 97 30 117/83 (94) 96 07/09/20 13:20 95 34 70 07/09/20 13:15 22 105/53 Mechanical Ventilator 70 07/09/20 13:15 95 22 105/53 (70) 95 07/09/20 13:00 92 22 106/54 (71) 99 07/09/20 13:00 22 106/54 Mechanical Ventilator 70 07/09/20 13:00 22 106/54 Mechanical Ventilator 70 07/09/20 12:45 93 24 103/69 (80) 97 07/09/20 12:45 24 103/69 Mechanical Ventilator 60 07/09/20 12:43 24 111/97 Mechanical Ventilator 60 07/09/20 12:30 84 21 111/97 (102) 99 07/09/20 12:15 85 18 107/68 (81) 98 07/09/20 12:00 Mechanical Ventilator Mechanical Ventilator 07/09/20 12:00 99.1 86 19 101/59 (73) 99 07/09/20 12:00 19 101/59 Mechanical Ventilator 60 07/09/20 12:00 19 101/59 Mechanical Ventilator 60 07/09/20 12:00 87 07/09/20 11:45 82 18 98/62 (74) 99 07/09/20 11:30 82 18 103/64 (77) 98 07/09/20 11:20 70 07/09/20 11:18 70 07/09/20 11:15 97 26 108/62 (77) 88 07/09/20 11:00 18 95/55 Mechanical Ventilator 60 07/09/20 11:00 18 95/55 Mechanical Ventilator 60 07/09/20 11:00 80 18 95/55 (68) 95 07/09/20 10:53 60 07/09/20 10:52 60 07/09/20 10:45 81 16 91/53 (66) 96 07/09/20 10:30 80 18 94/54 (67) 100 07/09/20 10:15 96 20 105/73 (84) 98 07/09/20 10:00 19 95/51 Mechanical Ventilator 80 07/09/20 10:00 19 95/51 Mechanical Ventilator 80 07/09/20 10:00 82 19 95/51 (66) 99 07/09/20 09:45 84 17 97/57 (70) 99 07/09/20 09:45 17 97/57 Mechanical Ventilator 80 07/09/20 09:30 91 22 102/66 (78) 99 07/09/20 09:30 22 102/66 Mechanical Ventilator 80 07/09/20 09:00 20 97/58 Mechanical Ventilator 80 07/09/20 09:00 20 97/58 Mechanical Ventilator 80 07/09/20 09:00 87 20 97/58 (71) 100 07/09/20 08:00 98.1 75 16 98/59 (72) 100 07/09/20 08:00 16 98/59 Mechanical Ventilator 80 07/09/20 08:00 16 98/59 Mechanical Ventilator 80 07/09/20 08:00 Mechanical Ventilator Mechanical Ventilator 07/09/20 08:00 80 07/09/20 07:45 75 07/09/20 07:40 84 18 80 07/09/20 07:00 74 17 99/50 (66) 100 07/09/20 07:00 17 99/50 Mechanical Ventilator 80 07/09/20 07:00 17 99/50 Mechanical Ventilator 80 07/09/20 06:00 75 17 95/55 (68) 100 07/09/20 05:30 72 16 90/44 (59) 100 07/09/20 05:00 73 18 96/57 (70) 100 07/09/20 04:44 73 16 91/66 (74) 100 07/09/20 04:35 73 16 75/47 (56) 100 07/09/20 04:30 71 15 70/46 (54) 100 07/09/20 04:09 76 17 87/53 (64) 100 07/09/20 04:03 75 19 71/48 (56) 100 07/09/20 04:00 72 07/09/20 04:00 80 07/09/20 04:00 98.0 77 15 80/49 (59) 100 07/09/20 04:00 Mechanical Ventilator Mechanical Ventilator 07/09/20 03:51 79 19 80 07/09/20 03:30 78 20 83/54 (64) 100 07/09/20 03:29 79 21 76/43 (54) 100 07/09/20 03:00 93 16 07/09/20 02:30 68 14 94/61 (72) 100 07/09/20 02:00 72 15 102/62 (75) 100 07/09/20 01:00 80 16 95/58 (70) 100 07/09/20 00:30 93 27 105/66 (79) 97 07/09/20 00:00 97.8 07/09/20 00:00 Mechanical Ventilator Mechanical Ventilator 07/09/20 00:00 80 07/09/20 00:00 76 15 90/65 (73) 100 07/09/20 00:00 76 07/08/20 23:41 72 15 80 07/08/20 23:33 20 84/55 07/08/20 23:00 69 15 87/58 (68) 100 07/08/20 22:45 67 16 100 07/08/20 22:30 69 15 90/55 (67) 100 07/08/20 22:17 68 19 93/60 (71) 100 07/08/20 22:15 68 16 100 07/08/20 22:00 70 15 87/51 (63) 100 07/08/20 21:45 69 15 100 07/08/20 21:30 71 15 87/53 (64) 100 07/08/20 21:15 73 15 100 07/08/20 21:00 79 19 91/58 (69) 100 07/08/20 20:02 20 82/52 Mechanical Ventilator 07/08/20 20:00 98.9 76 16 82/52 (62) 100 07/08/20 20:00 Mechanical Ventilator Mechanical Ventilator 07/08/20 20:00 80 07/08/20 20:00 82 07/08/20 19:51 89 18 80 07/08/20 19:00 15 90/57 Mechanical Ventilator 80 07/08/20 19:00 15 90/57 Mechanical Ventilator 80 07/08/20 19:00 99.7 79 16 90/59 (69) 100 07/08/20 18:56 98.8 07/08/20 18:00 16 91/56 Mechanical Ventilator 80 07/08/20 18:00 16 91/52 Mechanical Ventilator 80 07/08/20 18:00 99.7 86 16 91/52 (65) 100 I&O Intake and Output 07/08/20 07/09/20 19:00 07:00 Intake Total 368 ml 300.0 ml Output Total 2175 ml 320 ml Balance -1807 ml -20.0 ml IV Total 368 ml 300.0 ml Output Urine Total 1575 ml 320 ml Gastric Drainage Total 600 ml # Bowel Movements 75 Dressing: saturated Cardiovascular: RSR Respiratory: decreased breath sounds Abdomen: soft, non-tender, present bowel sounds Extremities: no tenderness, no cyanosis Laboratory Tests Test 07/09/20 08:43 07/09/20 10:17 White Blood Count 8.8 K/UL (4.8-10.8) Red Blood Count 2.80 M/UL (4.20-5.40) L Hemoglobin 7.8 G/DL (12.0-16.0) L Hematocrit 26.1 % (37.0-47.0) L Mean Corpuscular Volume 93 FL (80-99) Mean Corpuscular Hemoglobin 28.0 PG (27.0-31.0) Mean Corpuscular Hemoglobin Concent 29.9 G/DL (32.0-36.0) L Red Cell Distribution Width 18.6 % (11.6-14.8) H Platelet Count 217 K/UL (150-450) Mean Platelet Volume 8.0 FL (6.5-10.1) Neutrophils (%) (Auto) % (45.0-75.0) Lymphocytes (%) (Auto) % (20.0-45.0) Monocytes (%) (Auto) % (1.0-10.0) Eosinophils (%) (Auto) % (0.0-3.0) Basophils (%) (Auto) % (0.0-2.0) Differential Total Cells Counted 100 Neutrophils % (Manual) 60 % (45-75) Lymphocytes % (Manual) 22 % (20-45) Monocytes % (Manual) 8 % (1-10) Eosinophils % (Manual) 10 % (0-3) H Basophils % (Manual) 0 % (0-2) Band Neutrophils 0 % (0-8) Platelet Estimate Adequate Platelet Morphology Normal Hypochromasia 1+ Anisocytosis 1+ Stomatocytes 1+ Sodium Level 139 MMOL/L (136-145) Potassium Level 3.6 MMOL/L (3.5-5.1) Chloride Level 96 MMOL/L (98-107) L Carbon Dioxide Level 42 MMOL/L (21-32) *H Anion Gap 1 mmol/L (5-15) L Blood Urea Nitrogen 14 mg/dL (7-18) Creatinine 0.4 MG/DL (0.55-1.30) L Estimat Glomerular Filtration Rate > 60 mL/min (>60) Glucose Level 87 MG/DL (74-106) Calcium Level 9.5 MG/DL (8.5-10.1) Total Bilirubin 1.9 MG/DL (0.2-1.0) H Direct Bilirubin 0.5 MG/DL (0.0-0.3) H Aspartate Amino Transf (AST/SGOT) 28 U/L (15-37) Alanine Aminotransferase (ALT/SGPT) 18 U/L (12-78) Alkaline Phosphatase 62 U/L (46-116) Total Protein 7.0 G/DL (6.4-8.2) Albumin 2.1 G/DL (3.4-5.0) L Globulin 4.9 g/dL Albumin/Globulin Ratio 0.4 (1.0-2.7) L Arterial Blood pH 7.469 (7.350-7.450) Arterial Blood Partial Pressure CO2 57.3 mmHg (35.0-45.0) *H Arterial Blood Partial Pressure O2 104.2 mmHg (75.0-100.0) H Arterial Blood HCO3 40.7 mmol/L (22.0-26.0) *H Arterial Blood Oxygen Saturation 97.3 % (95-100) Arterial Blood Base Excess 15.1 (-2-2) *H Jeremiah Test Positive Plan Problems: (1) Respiratory distress (2) Respiratory failure Assessment & Plan: 50-year-old female Covid positive respiratory insufficiency intubated on ventilatory support declining. Leukocytosis increase oxygen requirement. Vent settings per pulmonology reviewed identified and agree. Unfortunately further surgical invention at this time is not appropriate as patient is not a candidate and her current condition. Prognosis overall guarded. Tracheostomy can be considered in the future if recovering or shows improvement and requires unable to be weaned from ventilator support. Currently okay for nutritional optimization with NG tube. Will need significant monitoring for decubitus formation given patient's size and condition. Okay for air mattress tolerated. Turn every 2 hours as tolerated. Patient is otherwise critically ill and blood pressure labile. Will need to monitor closely.Bilateral infiltrates are again demonstrated. Stable tube and line positions. will need trach will need to wean vent first (3) Hypoxia (4) Pneumonia due to COVID-19 virus Assessment & Plan: ++ as per pulm and ID (5) Diabetes mellitus out of control Assessment & Plan: DAILY ESTIMATED NEEDS: Needs based on Critical care, obesity 11-14kcal/kg actual body wt (140kg) kcals/kg 2548-4716 total kcals 1.5-2.0g prot/kg IBW (64.5kg) g protein/kg 96-129 g total protein 25-30ml/kg abw (83kg) mL/kg 3323-7629 total fluid mLs NUTRITION DIAGNOSIS: Swallowing difficulty R/T respiratory failure as evidenced by pt orally intubated and sedated, on OGT feeds. CURRENT TF: Vital 1.2 goal of 60ml/hr ENTERAL NUTRITION RECOMMENDATIONS: Vital AF 1.2 @ 60ml/hr x 24 hrs to provide 1440ml, 1728kcal, 108g prot, 1168ml free water * Maintain current critical care and carb controlled TF formula of Vital AF * TF @ goal meeds 100% est kcal/prot needs * HOB over 30 degrees/ water flush per MD TF may be lowered to 55ml/hr for improved BG control while maintaining Kcal and pro needs. ADDITIONAL RECOMMENDATIONS: * Calibrated bedscale wt * Monitor Propofol rate, need for TF adjustment-> now off * Monitor BGs closely : now improved, on novolog q 6rs + NISS * Monitor lytes- K elevated, monitor need for TF change * Rec bowel regimen- now w/ rectal tube . Az Devine Jul 09, 2020 17:18
--- NOTE | 2020-07-09 19:15 | NUR ---
NURSE HAND-OFF REPORT: Latest Vital Signs: Temperature 99.1 , Pulse 99 , B/P 110 /68 , Respiratory Rate 32 , O2 SAT 97 , Mechanical Ventilator, O2 Flow Rate . Vital Sign Comment: lightly sedated RASS -2 EKG Rhythm: Sinus Rhythm Latest Meyers Fall Score: 70 Fall Risk: High Risk Safety Measures: Call light Within Reach, Bed Alarm Zone 1, Side Rails Side Rails x2, Bed position Low and Locked. Fall Precautions: Yellow Socks Report given to Geri Limon RN.
--- NOTE | 2020-07-09 19:32 | NUR ---
NURSE NOTES: received report from simona rn pt sedated with fent drip at100 mcg and versed drip at 10 mg with -2rass trach -vent 98% NO RESP DISTRESS NOTED TUBE FEEDING OFF NOT TOLERATING FEEDING-SUCTION URINARY OUT PUT GOOD REPOSITION AND SUCTION
[2020-07-09] MEDS: Dyna-Hex 2% Top Sol 2oz TOPIC SCH (20:28)
--- NOTE | 2020-07-09 22:00 | NUR ---
NURSE NOTES: reposition and suction
[2020-07-10] VITALS (32 sets, daily range): BP systolic 72–150; BP diastolic 41–103
--- NOTE | 2020-07-10 | NUR ---
NURSE NOTES: bs 90 no coverage
[2020-07-10] MEDS: Versed 100mg/NS 200ml 200 ML IV PRN ×2 (03:50→13:00)
--- NOTE | 2020-07-10 04:00 | NUR ---
NURSE NOTES: complete bed bath oral care and back care done
[2020-07-10] MEDS: Midodrine 10mg tab GT SCH ×3 (05:24→21:53)
[2020-07-10 05:34] LABS: HEMATOCRIT 25.4 % (37.0-47.0); HEMOGLOBIN 7.8 G/DL (12.0-16.0); MEAN CORPUSCULAR VOLUME 92 FL (80-99); PLATELET COUNT 237 K/UL (150-450); RED BLOOD COUNT 2.75 M/UL (4.20-5.40); RED CELL DISTRIBUTION WIDTH 17.7 % (11.6-14.8); WHITE BLOOD COUNT 8.8 K/UL (4.8-10.8)
--- NOTE | 2020-07-10 06:00 | NUR ---
NURSE NOTES: bs 100 no coverage
--- NOTE | 2020-07-10 06:40 | NUR ---
CASE MANAGEMENT:REVIEW 07/10/20 SI: COVID PNEUMONIA POD #3...S/P TRACHEOSTOMY AND BRONCHOSCOPY 99.0 87 10 91/53 99% ON VENT SUPPORT W/70% FIO2 PEEP~7.0 H/H-7.8/25.4 CO2+42 IS:VERSED GTT FENTANYL GTT IV LASIX QD LOVENOX SQ QD IVF@50/HR MIDODRINE NG Q8HRS : ICU STATUS DCP: FROM HOME PLAN: NEEDS PEG PLACEMENT WILL NEED SUBACUTE PLACEMENT OR LTACH
--- NOTE | 2020-07-10 07:05 | Hematology/Onc Progress Note ---
Assessment/Plan Assessment/Plan # Deep vein thrombosis of the right calf --> given onoing anemia and low plts --> consider ivc if bleeding--once stable, needs it placed --> once stable, for radiology and ivc filter placement # Thrombocytopenia is due to infection/underlying covid19+++ --> ABX ceftriaxone -->zosyn-->off --> on steriods likely cause of initial wbc --> per pulm --> plt 107->156-->192-->205 --> smear reviewed # Anemia due to chronic disease --> hgb goal is >7 --> transfuse prn --> ferritin is >1000 --> hold off on iron --> 10-->9.8->9-->8-->8.2-->9.4-->8.1-->9.9-->8.7-->9.7-->9.5-->8.1- ->8.8->8.5->7.2-->7.8 # Elevated ddimer due to covid19++ --> duplex legs is negative --> underlying covid rx # Hypoxia -> due to covid19 # Hypoxemia --> rx same as above # Respiratory failure --> on vent/trach --> per pulm # Pneumonia due to COVID-19 virus --> per pulm rx -> sp remdesivir # Diabetes mellitus out of control --> hgb a1c goal <7 # Poor prognosis # Dvt ppx ivc filter once more stable Appreciate consultation and bowen RN Subjective Allergies: Coded Allergies: No Known Allergies (Unverified , 05/28/20) All Systems: reviewed and negative except above Subjective 06/10 nv, on vent, with ogt, on fentanyl and versed, plt stable 06/11 nv, vent adjusted is on ogt, meds reviewed 06/12 nv, vent, meds noted, labs noted, no bleeding, hgb 10.4 06/13 nv, is on vent, meds reviewed, no bleeding, cbc reviewed 06/14 nv, on vent, tachy, labs reviewed, gross hematuria, febrile overnight, abx 06/17 nv, on vent, labs noted, no major changes, feeling better overnight 06/18 nv, meds reviewed, labs noted, no major events, hgb 8.6 06/19 nv, remains intubated, with fluids, labs reviewed, meds noted 06/20 nv, intubated remains on restraints, meds noted as well, as labs 06/21 nv, remains on vent, on restraints, meds reviewed, labs noted 06/22: covering Dr. Del Cid no acute events 06/23 sedated, on vent, nv, intubated, meds reviewed, versed 06/24 nv, on vent, no night sweats, no bleeding, remains in icu 06/25 nv, on vent, icu, meds noted, no bleeding, comfortable 06/26 nv, on versed, icu, weaning parameters, labs noted 06/27 nv, overnight fighting vent, as per pulm fentanyl on board 06/28 nv, on vent, labs reviewed, as per pulm, meds noted 06/30 nv, icu, labs pending, is on fentanyl, versed, no new changes 07/01 nv, icu, is on vent, labs pending, no new changes per rn 07/02 nv, icu is on vent, labs noted, hgb is stable 07/03 nv, icu, is on vent, potential trrach when stable, cbc reviewed 07/04 icu, nv, labs are noted, stable for trach today dw Rn Dl 07/05 icu, nv, on vent, with ng and picc in place, labs noted, s/p trach 07/07 icu, nv, on tv, no bleeding, labs noted, meds reviewed 07/08 icu, nv, on tv, labs reviewed, meds noted, no bleeding 07/09 icu, nv, meds noted, no bleeding, blood transfusion was completed 07/10 icu, nv, labs ntoed, no bleeding, hgb improved, hgb 7.8 Objective Objective Current Medications Medications (Trade) Dose Ordered Sig/Zelda Route PRN Reason Start Time Stop Time Status Last Admin Dose Admin Acetaminophen (Tylenol) 650 mg Q4H PRN NG Temp >100.5 06/29/20 10:15 07/29/20 10:14 07/08/20 18:26 Acetaminophen (Tylenol) 650 mg Q6H PRN NG Mild Pain (Pain Scale 1-3) 06/29/20 10:15 07/29/20 10:14 Chlorhexidine Gluconate (Inna-Hex 2%) 1 applic DAILY@2000 TOPIC 05/30/20 20:00 08/28/20 19:59 07/09/20 20:28 Dextrose (Dextrose 50%) 25 ml Q30M PRN IV Hypoglycemia 06/05/20 10:45 09/03/20 10:44 Dextrose (Dextrose 50%) 50 ml Q30M PRN IV Hypoglycemia 06/05/20 10:45 09/03/20 10:44 Fentanyl Citrate 250 ml @ 10.5 mls/hr Q24H IV 07/09/20 12:00 07/11/20 11:59 07/09/20 12:43 Furosemide (Lasix) 40 mg DAILY IV 06/22/20 09:00 07/22/20 08:59 07/09/20 09:13 Lansoprazole (Prevacid) 30 mg DAILY GT 07/10/20 09:00 08/09/20 08:59 Lidocaine HCl (Xylocaine 1% 30ml) 30 ml NOW PRN INJ Radiology Procedure 07/09/20 06:45 07/12/20 06:44 Midodrine (Pro-Amatine) 10 mg Q8HR GT 06/30/20 14:00 09/12/20 13:59 07/10/20 05:24 Sodium Bicarbonate (Sodium Bicarbonate 4%) 1 ml NOW PRN IV Radiology Procedure 07/09/20 06:45 07/12/20 06:44 Vitamin D (Vitamin D) 5,000 unit DAILY GT 06/28/20 09:00 07/28/20 08:59 07/09/20 09:12 Last 24 Hour Vital Signs Date Time Temp Pulse Resp B/P (MAP) Pulse Ox O2 Delivery O2 Flow Rate FiO2 07/10/20 06:00 16 90/48 Mechanical Ventilator 70 07/10/20 06:00 20 99/48 Mechanical Ventilator 70 07/10/20 06:00 82 17 101/69 (80) 100 07/10/20 05:00 87 14 96/54 (68) 99 07/10/20 05:00 20 106/54 Mechanical Ventilator 70.0 70 07/10/20 05:00 17 101/68 Mechanical Ventilator 70 07/10/20 04:00 99.0 87 10 91/53 (66) 99 07/10/20 04:00 Mechanical Ventilator Mechanical Ventilator 07/10/20 04:00 12 91/53 Mechanical Ventilator 70 07/10/20 04:00 16 91/50 Mechanical Ventilator 70 07/10/20 04:00 70 07/10/20 04:00 98 07/10/20 03:50 13 93/51 Mechanical Ventilator 70 07/10/20 03:00 100 20 100/51 (67) 99 07/10/20 03:00 16 90/56 Mechanical Ventilator 70 07/10/20 03:00 15 93/50 Mechanical Ventilator 70 07/10/20 02:21 89 17 70 07/10/20 02:00 88 17 112/76 (88) 98 07/10/20 02:00 20 111/60 Mechanical Ventilator 70 07/10/20 02:00 13 105/56 Mechanical Ventilator 70 07/10/20 01:00 19 112/61 Mechanical Ventilator 70 07/10/20 01:00 14 112/72 Mechanical Ventilator 70 07/10/20 01:00 93 18 115/80 (92) 99 07/10/20 00:00 Mechanical Ventilator Mechanical Ventilator 07/10/20 00:00 98 07/10/20 00:00 18 122/68 Mechanical Ventilator 70 07/10/20 00:00 20 122/68 Mechanical Ventilator 70 07/10/20 00:00 70 07/10/20 00:00 99.5 96 18 122/68 (86) 100 07/09/20 23:16 102 24 70 07/09/20 23:00 101 19 116/74 (88) 98 07/09/20 23:00 20 122/65 Mechanical Ventilator 70 07/09/20 23:00 20 122/68 70 07/09/20 22:00 103 23 110/80 (90) 95 07/09/20 22:00 21 93/69 Mechanical Ventilator 70 07/09/20 22:00 21 93/69 Mechanical Ventilator 70 07/09/20 21:00 Mechanical Ventilator Mechanical Ventilator 07/09/20 21:00 23 114/55 Mechanical Ventilator 70 07/09/20 21:00 23 111/65 Mechanical Ventilator 70 07/09/20 21:00 95 07/09/20 21:00 104 26 111/67 (82) 92 07/09/20 20:00 70 07/09/20 20:00 99.0 103 22 100/55 (70) 92 07/09/20 20:00 17 114/55 Mechanical Ventilator 70 07/09/20 20:00 22 112/60 Mechanical Ventilator 70 07/09/20 19:22 99 32 70 07/09/20 19:00 17 110/68 Mechanical Ventilator 70 07/09/20 19:00 17 110/68 Mechanical Ventilator 70 07/09/20 19:00 99 17 110/68 (82) 97 07/09/20 18:45 101 23 121/78 (92) 96 07/09/20 18:30 98 23 101/67 (78) 96 07/09/20 18:15 103 22 114/76 (89) 93 07/09/20 18:00 92 20 112/73 (86) 99 07/09/20 18:00 20 112/73 Mechanical Ventilator 70 07/09/20 18:00 20 112/73 Mechanical Ventilator 70 07/09/20 17:45 93 23 113/79 (90) 98 07/09/20 17:45 23 113/79 Mechanical Ventilator 70 07/09/20 17:30 106 25 126/76 (93) 92 07/09/20 17:30 25 126/76 Mechanical Ventilator 70 07/09/20 17:15 93 17 112/62 (79) 100 07/09/20 17:00 92 23 120/69 (86) 99 07/09/20 17:00 23 120/69 Mechanical Ventilator 70 07/09/20 17:00 23 120/69 Mechanical Ventilator 70 07/09/20 16:45 18 108/71 Mechanical Ventilator 70 07/09/20 16:29 21 109/59 Mechanical Ventilator 70 07/09/20 16:00 Mechanical Ventilator Mechanical Ventilator 07/09/20 16:00 95 07/09/20 16:00 99.1 102 23 104/78 (87) 95 07/09/20 16:00 70 07/09/20 16:00 23 104/78 Mechanical Ventilator 70 07/09/20 16:00 23 104/78 Mechanical Ventilator 70 07/09/20 15:00 92 20 105/63 (77) 98 07/09/20 15:00 20 105/63 Mechanical Ventilator 70 07/09/20 15:00 20 105/63 Mechanical Ventilator 70 07/09/20 14:45 94 20 106/61 (76) 98 07/09/20 14:30 95 18 112/65 (81) 95 07/09/20 14:15 99 24 109/68 (82) 97 07/09/20 14:00 16 125/67 Mechanical Ventilator 70 07/09/20 14:00 16 125/67 Mechanical Ventilator 70 07/09/20 14:00 91 16 125/67 (86) 98 07/09/20 13:45 19 119/66 Mechanical Ventilator 70 07/09/20 13:45 89 19 119/66 (83) 99 07/09/20 13:30 97 30 117/83 (94) 96 07/09/20 13:20 95 34 70 07/09/20 13:15 22 105/53 Mechanical Ventilator 70 07/09/20 13:15 95 22 105/53 (70) 95 07/09/20 13:00 92 22 106/54 (71) 99 07/09/20 13:00 22 106/54 Mechanical Ventilator 70 07/09/20 13:00 22 106/54 Mechanical Ventilator 70 07/09/20 12:45 93 24 103/69 (80) 97 07/09/20 12:45 24 103/69 Mechanical Ventilator 60 07/09/20 12:43 24 111/97 Mechanical Ventilator 60 07/09/20 12:30 84 21 111/97 (102) 99 07/09/20 12:15 85 18 107/68 (81) 98 07/09/20 12:00 Mechanical Ventilator Mechanical Ventilator 07/09/20 12:00 99.1 86 19 101/59 (73) 99 07/09/20 12:00 19 101/59 Mechanical Ventilator 60 07/09/20 12:00 19 101/59 Mechanical Ventilator 60 07/09/20 12:00 87 07/09/20 11:45 82 18 98/62 (74) 99 07/09/20 11:30 82 18 103/64 (77) 98 07/09/20 11:20 70 07/09/20 11:18 70 07/09/20 11:15 97 26 108/62 (77) 88 07/09/20 11:00 18 95/55 Mechanical Ventilator 60 07/09/20 11:00 18 95/55 Mechanical Ventilator 60 07/09/20 11:00 80 18 95/55 (68) 95 07/09/20 10:53 60 07/09/20 10:52 60 07/09/20 10:45 81 16 91/53 (66) 96 07/09/20 10:30 80 18 94/54 (67) 100 07/09/20 10:15 96 20 105/73 (84) 98 07/09/20 10:00 19 95/51 Mechanical Ventilator 80 07/09/20 10:00 19 95/51 Mechanical Ventilator 80 07/09/20 10:00 82 19 95/51 (66) 99 07/09/20 09:45 84 17 97/57 (70) 99 07/09/20 09:45 17 97/57 Mechanical Ventilator 80 07/09/20 09:30 91 22 102/66 (78) 99 07/09/20 09:30 22 102/66 Mechanical Ventilator 80 07/09/20 09:00 20 97/58 Mechanical Ventilator 80 07/09/20 09:00 20 97/58 Mechanical Ventilator 80 07/09/20 09:00 87 20 97/58 (71) 100 07/09/20 08:00 98.1 75 16 98/59 (72) 100 07/09/20 08:00 16 98/59 Mechanical Ventilator 80 07/09/20 08:00 16 98/59 Mechanical Ventilator 80 07/09/20 08:00 Mechanical Ventilator Mechanical Ventilator 07/09/20 08:00 80 07/09/20 07:45 75 07/09/20 07:40 84 18 80 07/09/20 07:00 74 17 99/50 (66) 100 07/09/20 07:00 17 99/50 Mechanical Ventilator 80 07/09/20 07:00 17 99/50 Mechanical Ventilator 80 07/09/20 06:00 75 17 95/55 (68) 100 07/09/20 05:30 72 16 90/44 (59) 100 07/09/20 05:00 73 18 96/57 (70) 100 07/09/20 04:44 73 16 91/66 (74) 100 07/09/20 04:35 73 16 75/47 (56) 100 07/09/20 04:30 71 15 70/46 (54) 100 07/09/20 04:09 76 17 87/53 (64) 100 07/09/20 04:03 75 19 71/48 (56) 100 07/09/20 04:00 72 07/09/20 04:00 80 07/09/20 04:00 98.0 77 15 80/49 (59) 100 07/09/20 04:00 Mechanical Ventilator Mechanical Ventilator 07/09/20 03:51 79 19 80 07/09/20 03:30 78 20 83/54 (64) 100 07/09/20 03:29 79 21 76/43 (54) 100 07/09/20 03:00 93 16 07/09/20 02:30 68 14 94/61 (72) 100 07/09/20 02:00 72 15 102/62 (75) 100 07/09/20 01:00 80 16 95/58 (70) 100 07/09/20 00:30 93 27 105/66 (79) 97 07/09/20 00:00 97.8 07/09/20 00:00 Mechanical Ventilator Mechanical Ventilator 07/09/20 00:00 80 07/09/20 00:00 76 15 90/65 (73) 100 07/09/20 00:00 76 07/08/20 23:41 72 15 80 07/08/20 23:33 20 84/55 07/08/20 23:00 69 15 87/58 (68) 100 07/08/20 22:45 67 16 100 07/08/20 22:30 69 15 90/55 (67) 100 07/08/20 22:17 68 19 93/60 (71) 100 07/08/20 22:15 68 16 100 07/08/20 22:00 70 15 87/51 (63) 100 07/08/20 21:45 69 15 100 07/08/20 21:30 71 15 87/53 (64) 100 07/08/20 21:15 73 15 100 07/08/20 21:00 79 19 91/58 (69) 100 07/08/20 20:02 20 82/52 Mechanical Ventilator 07/08/20 20:00 98.9 76 16 82/52 (62) 100 07/08/20 20:00 Mechanical Ventilator Mechanical Ventilator 07/08/20 20:00 80 07/08/20 20:00 82 07/08/20 19:51 89 18 80 07/08/20 19:00 15 90/57 Mechanical Ventilator 80 07/08/20 19:00 15 90/57 Mechanical Ventilator 80 07/08/20 19:00 99.7 79 16 90/59 (69) 100 07/08/20 18:56 98.8 07/08/20 18:00 16 91/56 Mechanical Ventilator 80 07/08/20 18:00 16 91/52 Mechanical Ventilator 80 07/08/20 18:00 99.7 86 16 91/52 (65) 100 07/08/20 17:00 17 97/56 Mechanical Ventilator 80 07/08/20 17:00 17 97/56 Mechanical Ventilator 80 07/08/20 17:00 90 17 97/56 (70) 100 07/08/20 16:00 100.1 100 25 102/63 (76) 100 07/08/20 16:00 Mechanical Ventilator Mechanical Ventilator 07/08/20 16:00 80 07/08/20 16:00 25 102/63 Mechanical Ventilator 80 07/08/20 16:00 25 102/63 Mechanical Ventilator 80 07/08/20 16:00 111 07/08/20 15:00 99 19 106/70 (82) 100 07/08/20 15:00 20 106/70 Mechanical Ventilator 80 07/08/20 15:00 20 106/70 Mechanical Ventilator 80 07/08/20 14:00 108 21 104/68 (80) 100 07/08/20 14:00 18 104/68 Mechanical Ventilator 80 07/08/20 14:00 18 104/68 Mechanical Ventilator 80 07/08/20 13:19 102 22 80 07/08/20 13:00 110 19 126/78 (94) 95 07/08/20 13:00 19 126/78 Mechanical Ventilator 80 07/08/20 13:00 19 126/78 Mechanical Ventilator 80 07/08/20 12:00 Mechanical Ventilator Mechanical Ventilator 07/08/20 12:00 80 07/08/20 12:00 98.2 110 16 125/93 (104) 95 07/08/20 12:00 19 125/93 Mechanical Ventilator 80 07/08/20 12:00 19 125/93 80 07/08/20 12:00 108 07/08/20 11:00 21 117/67 Mechanical Ventilator 80 07/08/20 11:00 29 117/67 Mechanical Ventilator 80 07/08/20 11:00 105 17 117/67 (84) 95 07/08/20 10:00 100 21 104/80 (88) 100 07/08/20 10:00 21 104/80 Mechanical Ventilator 80 07/08/20 10:00 21 104/80 Mechanical Ventilator 80 07/08/20 09:28 106 26 80 07/08/20 09:00 100 21 108/72 (84) 100 07/08/20 09:00 21 108/72 Mechanical Ventilator 60 07/08/20 09:00 21 108/72 Mechanical Ventilator 60 07/08/20 08:47 18 88/51 Mechanical Ventilator 60 07/08/20 08:00 Mechanical Ventilator Mechanical Ventilator 07/08/20 08:00 18 88/51 Mechanical Ventilator 60 07/08/20 08:00 18 88/55 Mechanical Ventilator 60 07/08/20 08:00 60 07/08/20 08:00 79 07/08/20 08:00 98.0 78 18 88/55 (66) 96 07/08/20 07:49 19 91/48 Mechanical Ventilator 60 07/08/20 07:12 79 15 60 Intake and Output 07/09/20 07/10/20 19:00 07:00 Intake Total 290.105 ml 330 ml Output Total 320 ml 370 ml Balance -29.895 ml -40 ml IV Total 290.105 ml 330 ml Output Urine Total 240 ml 290 ml Stool Total 60 ml Gastric Drainage Total 20 ml 80 ml # Bowel Movements 50 Labs Test 07/07/20 09:05 07/08/20 05:29 07/08/20 10:45 07/09/20 08:43 White Blood Count 11.9 K/UL (4.8-10.8) 8.0 K/UL (4.8-10.8) 8.8 K/UL (4.8-10.8) Red Blood Count 2.90 M/UL (4.20-5.40) 2.51 M/UL (4.20-5.40) 2.80 M/UL (4.20-5.40) Hemoglobin 8.5 G/DL (12.0-16.0) 7.2 G/DL (12.0-16.0) 7.8 G/DL (12.0-16.0) Hematocrit 27.5 % (37.0-47.0) 24.2 % (37.0-47.0) 26.1 % (37.0-47.0) Mean Corpuscular Volume 95 FL (80-99) 96 FL (80-99) 93 FL (80-99) Mean Corpuscular Hemoglobin 29.4 PG (27.0-31.0) 28.6 PG (27.0-31.0) 28.0 PG (27.0-31.0) Mean Corpuscular Hemoglobin Concent 31.0 G/DL (32.0-36.0) 29.7 G/DL (32.0-36.0) 29.9 G/DL (32.0-36.0) Red Cell Distribution Width 18.4 % (11.6-14.8) 19.0 % (11.6-14.8) 18.6 % (11.6-14.8) Platelet Count 253 K/UL (150-450) 207 K/UL (150-450) 217 K/UL (150-450) Mean Platelet Volume 7.9 FL (6.5-10.1) 8.1 FL (6.5-10.1) 8.0 FL (6.5-10.1) Neutrophils (%) (Auto) 66.9 % (45.0-75.0) % (45.0-75.0) % (45.0-75.0) Lymphocytes (%) (Auto) 22.8 % (20.0-45.0) % (20.0-45.0) % (20.0-45.0) Monocytes (%) (Auto) 7.5 % (1.0-10.0) % (1.0-10.0) % (1.0-10.0) Eosinophils (%) (Auto) 1.5 % (0.0-3.0) % (0.0-3.0) % (0.0-3.0) Basophils (%) (Auto) 1.3 % (0.0-2.0) % (0.0-2.0) % (0.0-2.0) Differential Total Cells Counted 100 100 Neutrophils % (Manual) 53 % (45-75) 60 % (45-75) Lymphocytes % (Manual) 27 % (20-45) 22 % (20-45) Monocytes % (Manual) 13 % (1-10) 8 % (1-10) Eosinophils % (Manual) 7 % (0-3) 10 % (0-3) Basophils % (Manual) 0 % (0-2) 0 % (0-2) Band Neutrophils 0 % (0-8) 0 % (0-8) Platelet Estimate Adequate Adequate Platelet Morphology Normal Normal Polychromasia 1+ Hypochromasia 1+ 1+ Anisocytosis 2+ 1+ Stomatocytes Occasional 1+ Sodium Level 140 MMOL/L (136-145) 139 MMOL/L (136-145) Potassium Level 3.8 MMOL/L (3.5-5.1) 3.6 MMOL/L (3.5-5.1) Chloride Level 97 MMOL/L (98-107) 96 MMOL/L (98-107) Carbon Dioxide Level 43 MMOL/L (21-32) 42 MMOL/L (21-32) Blood Urea Nitrogen 14 mg/dL (7-18) 14 mg/dL (7-18) Creatinine 0.5 MG/DL (0.55-1.30) 0.4 MG/DL (0.55-1.30) Estimat Glomerular Filtration Rate > 60 mL/min (>60) > 60 mL/min (>60) Glucose Level 95 MG/DL (74-106) 87 MG/DL (74-106) Uric Acid 2.6 MG/DL (2.6-7.2) Calcium Level 9.5 MG/DL (8.5-10.1) 9.5 MG/DL (8.5-10.1) Phosphorus Level 4.4 MG/DL (2.5-4.9) Magnesium Level 1.9 MG/DL (1.8-2.4) Total Bilirubin 1.7 MG/DL (0.2-1.0) 1.9 MG/DL (0.2-1.0) Direct Bilirubin 0.4 MG/DL (0.0-0.3) 0.5 MG/DL (0.0-0.3) Aspartate Amino Transf (AST/SGOT) 32 U/L (15-37) 28 U/L (15-37) Alanine Aminotransferase (ALT/SGPT) 21 U/L (12-78) 18 U/L (12-78) Alkaline Phosphatase 65 U/L (46-116) 62 U/L (46-116) C-Reactive Protein, Quantitative 27.2 mg/dL (0.00-0.90) Pro-B-Type Natriuretic Peptide 757 pg/mL (0-125) Total Protein 7.2 G/DL (6.4-8.2) 7.0 G/DL (6.4-8.2) Albumin 2.3 G/DL (3.4-5.0) 2.1 G/DL (3.4-5.0) Globulin 4.9 g/dL 4.9 g/dL Albumin/Globulin Ratio 0.5 (1.0-2.7) 0.4 (1.0-2.7) Arterial Blood pH 7.402 (7.350-7.450) Arterial Blood Partial Pressure CO2 81.4 mmHg (35.0-45.0) Arterial Blood Partial Pressure O2 75.7 mmHg (75.0-100.0) Arterial Blood HCO3 49.5 mmol/L (22.0-26.0) Arterial Blood Oxygen Saturation 94.1 % (95-100) Arterial Blood Base Excess 22.0 (-2-2) Jeremiah Test Positive Anion Gap 1 mmol/L (5-15) Test 07/09/20 10:17 07/10/20 04:30 Arterial Blood pH 7.469 (7.350-7.450) Arterial Blood Partial Pressure CO2 57.3 mmHg (35.0-45.0) Arterial Blood Partial Pressure O2 104.2 mmHg (75.0-100.0) Arterial Blood HCO3 40.7 mmol/L (22.0-26.0) Arterial Blood Oxygen Saturation 97.3 % (95-100) Arterial Blood Base Excess 15.1 (-2-2) Jeremiah Test Positive White Blood Count 8.8 K/UL (4.8-10.8) Red Blood Count 2.75 M/UL (4.20-5.40) Hemoglobin 7.8 G/DL (12.0-16.0) Hematocrit 25.4 % (37.0-47.0) Mean Corpuscular Volume 92 FL (80-99) Mean Corpuscular Hemoglobin 28.3 PG (27.0-31.0) Mean Corpuscular Hemoglobin Concent 30.7 G/DL (32.0-36.0) Red Cell Distribution Width 17.7 % (11.6-14.8) Platelet Count 237 K/UL (150-450) Mean Platelet Volume 8.3 FL (6.5-10.1) Neutrophils (%) (Auto) % (45.0-75.0) Lymphocytes (%) (Auto) % (20.0-45.0) Monocytes (%) (Auto) % (1.0-10.0) Eosinophils (%) (Auto) % (0.0-3.0) Basophils (%) (Auto) % (0.0-2.0) Height (Feet): 5 Height (Inches): 6.00 Weight (Pounds): 239 Objective GeNL: nv Pulm: vent/trach++ CV: rrr Abd: soft, nt, nd Ext: no cce Myron Condon MD Jul 10, 2020 07:05
--- NOTE | 2020-07-10 07:22 | NUR ---
NURSE HAND-OFF REPORT: Latest Vital Signs: Temperature 99.0 , Pulse 80 , B/P 93 /53 , Respiratory Rate 19 , O2 SAT 100 , Mechanical Ventilator, O2 Flow Rate . Vital Sign Comment: EKG Rhythm: Sinus Rhythm Rhythm change?: Jesus TOLLIVER Notified?: Babs EDWARDS MD Response: Latest Meyers Fall Score: 70 Fall Risk: High Risk Safety Measures: Call light Within Reach, Bed Alarm Zone 1, Side Rails Side Rails x2, Bed position Low and Locked. Fall Precautions: Yellow Socks Report given to dennis gracia.
--- NOTE | 2020-07-10 07:23 | NUR ---
NURSE NOTES: Report received from Jacob Moss RN. Patient lightly sedated, no resp distress, with trach to vent , settings AC 15,TV 600 FiO2 70%, Peep7. SR on the monitor,NGT to low suction,draining bile colored secretions. Lennon cath with yellow urine,skin warm and dry. Right Femoral TLC intact with Fentanyl drip at 100 mcg/hr and Versed drip at 10 mg/hr. Side Rails up x2 ,HOB elevated bed lock in lowest position, Will continue with plans of care.
[2020-07-10] MEDS: Lansoprazole 15mg cap GT SCH (08:41)
[2020-07-10] MEDS: Vitamin D 1000 units Tab GT SCH (08:41)
--- NOTE | 2020-07-10 10:31 | Pulmonology Progress Note ---
Subjective ROS Limited/Unobtainable: Yes Interval Events: S/p tracheostomy 07/04/20 Constitutional: Reports: fever, other - T=100 HEENT: Repors: no symptoms Respiratory: Reports: no symptoms Cardiovascular: Reports: no symptoms Gastrointestinal/Abdominal: Reports: no symptoms Genitourinary: Reports: no symptoms Allergies: Coded Allergies: No Known Allergies (Unverified , 05/28/20) All Systems: reviewed and negative except above Objective Last 24 Hour Vital Signs Date Time Temp Pulse Resp B/P (MAP) Pulse Ox O2 Delivery O2 Flow Rate FiO2 07/10/20 09:45 90 17 100/62 (75) 100 07/10/20 09:30 94 24 104/63 (77) 100 07/10/20 09:15 94 17 101/66 (78) 100 07/10/20 09:00 94 17 99/66 (77) 100 07/10/20 08:45 100 24 97/62 (74) 99 07/10/20 08:30 108 24 101/78 (86) 94 07/10/20 08:25 70 07/10/20 08:15 50 07/10/20 08:15 100 26 104/83 (90) 99 07/10/20 08:00 Mechanical Ventilator Mechanical Ventilator 07/10/20 08:00 98.7 95 18 99/57 (71) 100 07/10/20 07:30 78 07/10/20 07:00 19 99/73 Mechanical Ventilator 70 07/10/20 07:00 19 93/53 Mechanical Ventilator 70 07/10/20 07:00 80 16 99/53 (68) 100 07/10/20 06:00 16 90/48 Mechanical Ventilator 70 07/10/20 06:00 20 99/48 Mechanical Ventilator 70 07/10/20 06:00 82 17 101/69 (80) 100 07/10/20 05:00 87 14 96/54 (68) 99 07/10/20 05:00 20 106/54 Mechanical Ventilator 70.0 70 07/10/20 05:00 17 101/68 Mechanical Ventilator 70 07/10/20 04:00 99.0 87 10 91/53 (66) 99 07/10/20 04:00 Mechanical Ventilator Mechanical Ventilator 07/10/20 04:00 12 91/53 Mechanical Ventilator 70 07/10/20 04:00 16 91/50 Mechanical Ventilator 70 07/10/20 04:00 70 07/10/20 04:00 98 07/10/20 03:50 13 93/51 Mechanical Ventilator 70 07/10/20 03:00 100 20 100/51 (67) 99 07/10/20 03:00 16 90/56 Mechanical Ventilator 70 07/10/20 03:00 15 93/50 Mechanical Ventilator 70 07/10/20 02:21 89 17 70 07/10/20 02:00 88 17 112/76 (88) 98 07/10/20 02:00 20 111/60 Mechanical Ventilator 70 07/10/20 02:00 13 105/56 Mechanical Ventilator 70 07/10/20 01:00 19 112/61 Mechanical Ventilator 70 07/10/20 01:00 14 112/72 Mechanical Ventilator 70 07/10/20 01:00 93 18 115/80 (92) 99 07/10/20 00:00 Mechanical Ventilator Mechanical Ventilator 07/10/20 00:00 98 07/10/20 00:00 18 122/68 Mechanical Ventilator 70 07/10/20 00:00 20 122/68 Mechanical Ventilator 70 07/10/20 00:00 70 07/10/20 00:00 99.5 96 18 122/68 (86) 100 07/09/20 23:16 102 24 70 07/09/20 23:00 101 19 116/74 (88) 98 07/09/20 23:00 20 122/65 Mechanical Ventilator 70 07/09/20 23:00 20 122/68 70 07/09/20 22:00 103 23 110/80 (90) 95 07/09/20 22:00 21 93/69 Mechanical Ventilator 70 07/09/20 22:00 21 93/69 Mechanical Ventilator 70 07/09/20 21:00 Mechanical Ventilator Mechanical Ventilator 07/09/20 21:00 23 114/55 Mechanical Ventilator 70 07/09/20 21:00 23 111/65 Mechanical Ventilator 70 07/09/20 21:00 95 07/09/20 21:00 104 26 111/67 (82) 92 07/09/20 20:00 70 07/09/20 20:00 99.0 103 22 100/55 (70) 92 07/09/20 20:00 17 114/55 Mechanical Ventilator 70 07/09/20 20:00 22 112/60 Mechanical Ventilator 70 07/09/20 19:22 99 32 70 07/09/20 19:00 17 110/68 Mechanical Ventilator 70 07/09/20 19:00 17 110/68 Mechanical Ventilator 70 07/09/20 19:00 99 17 110/68 (82) 97 07/09/20 18:45 101 23 121/78 (92) 96 07/09/20 18:30 98 23 101/67 (78) 96 07/09/20 18:15 103 22 114/76 (89) 93 07/09/20 18:00 92 20 112/73 (86) 99 07/09/20 18:00 20 112/73 Mechanical Ventilator 70 07/09/20 18:00 20 112/73 Mechanical Ventilator 70 07/09/20 17:45 93 23 113/79 (90) 98 07/09/20 17:45 23 113/79 Mechanical Ventilator 70 07/09/20 17:30 106 25 126/76 (93) 92 07/09/20 17:30 25 126/76 Mechanical Ventilator 70 07/09/20 17:15 93 17 112/62 (79) 100 07/09/20 17:00 92 23 120/69 (86) 99 07/09/20 17:00 23 120/69 Mechanical Ventilator 70 07/09/20 17:00 23 120/69 Mechanical Ventilator 70 07/09/20 16:45 18 108/71 Mechanical Ventilator 70 07/09/20 16:29 21 109/59 Mechanical Ventilator 70 07/09/20 16:00 Mechanical Ventilator Mechanical Ventilator 07/09/20 16:00 95 07/09/20 16:00 99.1 102 23 104/78 (87) 95 07/09/20 16:00 70 07/09/20 16:00 23 104/78 Mechanical Ventilator 70 07/09/20 16:00 23 104/78 Mechanical Ventilator 70 07/09/20 15:00 92 20 105/63 (77) 98 07/09/20 15:00 20 105/63 Mechanical Ventilator 70 07/09/20 15:00 20 105/63 Mechanical Ventilator 70 07/09/20 14:45 94 20 106/61 (76) 98 07/09/20 14:30 95 18 112/65 (81) 95 07/09/20 14:15 99 24 109/68 (82) 97 2/16/21 14:00 16 125/67 Mechanical Ventilator 70 07/09/20 14:00 16 125/67 Mechanical Ventilator 70 07/09/20 14:00 91 16 125/67 (86) 98 07/09/20 13:45 19 119/66 Mechanical Ventilator 70 07/09/20 13:45 89 19 119/66 (83) 99 07/09/20 13:30 97 30 117/83 (94) 96 07/09/20 13:20 95 34 70 07/09/20 13:15 22 105/53 Mechanical Ventilator 70 07/09/20 13:15 95 22 105/53 (70) 95 07/09/20 13:00 92 22 106/54 (71) 99 07/09/20 13:00 22 106/54 Mechanical Ventilator 70 07/09/20 13:00 22 106/54 Mechanical Ventilator 70 07/09/20 12:45 93 24 103/69 (80) 97 07/09/20 12:45 24 103/69 Mechanical Ventilator 60 07/09/20 12:43 24 111/97 Mechanical Ventilator 60 07/09/20 12:30 84 21 111/97 (102) 99 07/09/20 12:15 85 18 107/68 (81) 98 07/09/20 12:00 Mechanical Ventilator Mechanical Ventilator 07/09/20 12:00 99.1 86 19 101/59 (73) 99 07/09/20 12:00 19 101/59 Mechanical Ventilator 60 07/09/20 12:00 19 101/59 Mechanical Ventilator 60 07/09/20 12:00 87 07/09/20 11:45 82 18 98/62 (74) 99 07/09/20 11:30 82 18 103/64 (77) 98 07/09/20 11:20 70 07/09/20 11:18 70 07/09/20 11:15 97 26 108/62 (77) 88 07/09/20 11:00 18 95/55 Mechanical Ventilator 60 07/09/20 11:00 18 95/55 Mechanical Ventilator 60 07/09/20 11:00 80 18 95/55 (68) 95 07/09/20 10:53 60 07/09/20 10:52 60 07/09/20 10:45 81 16 91/53 (66) 96 Intake and Output 07/09/20 07/10/20 19:00 07:00 Intake Total 290.105 ml 360 ml Output Total 320 ml 550 ml Balance -29.895 ml -190 ml IV Total 290.105 ml 360 ml Output Urine Total 240 ml 370 ml Stool Total 60 ml Gastric Drainage Total 20 ml 180 ml # Bowel Movements 50 General Appearance: no acute distress HEENT: normocephalic, status post trach Respiratory: chest wall non-tender Cardiovascular: normal peripheral pulses Abdomen: normal bowel sounds Laboratory Tests 07/10/20 04:30: White Blood Count 8.8, Red Blood Count 2.75L, Hemoglobin 7.8L, Hematocrit 25.4L, Mean Corpuscular Volume 92, Mean Corpuscular Hemoglobin 28.3, Mean Corpuscular Hemoglobin Concent 30.7L, Red Cell Distribution Width 17.7H, Platelet Count 237, Mean Platelet Volume 8.3, Neutrophils (%) (Auto) , Lymphocytes (%) (Auto) , Monocytes (%) (Auto) , Eosinophils (%) (Auto) , Basophils (%) (Auto) 07/10/20 08:03: Arterial Blood pH 7.504H, Arterial Blood Partial Pressure CO2 54.5H, Arterial Blood Partial Pressure O2 135.3H, Arterial Blood HCO3 41.9*H, Arterial Blood Oxygen Saturation 98.7, Arterial Blood Base Excess 16.9*H, Jeremiah Test Positive Current Medications Medications (Trade) Dose Ordered Sig/Zelda Route PRN Reason Start Time Stop Time Status Last Admin Dose Admin Acetaminophen (Tylenol) 650 mg Q4H PRN NG Temp >100.5 06/29/20 10:15 07/29/20 10:14 07/08/20 18:26 Acetaminophen (Tylenol) 650 mg Q6H PRN NG Mild Pain (Pain Scale 1-3) 06/29/20 10:15 07/29/20 10:14 Chlorhexidine Gluconate (Inna-Hex 2%) 1 applic DAILY@2000 TOPIC 05/30/20 20:00 08/28/20 19:59 07/09/20 20:28 Dextrose (Dextrose 50%) 25 ml Q30M PRN IV Hypoglycemia 06/05/20 10:45 09/03/20 10:44 Dextrose (Dextrose 50%) 50 ml Q30M PRN IV Hypoglycemia 06/05/20 10:45 09/03/20 10:44 Fentanyl Citrate 250 ml @ 10.5 mls/hr Q24H IV 07/09/20 12:00 07/11/20 11:59 07/09/20 12:43 Furosemide (Lasix) 40 mg DAILY IV 06/22/20 09:00 07/22/20 08:59 07/10/20 08:41 Lansoprazole (Prevacid) 30 mg DAILY GT 07/10/20 09:00 08/09/20 08:59 07/10/20 08:41 Lidocaine HCl (Xylocaine 1% 30ml) 30 ml NOW PRN INJ Radiology Procedure 07/09/20 06:45 07/12/20 06:44 Midodrine (Pro-Amatine) 10 mg Q8HR GT 06/30/20 14:00 09/12/20 13:59 07/10/20 05:24 Sodium Bicarbonate (Sodium Bicarbonate 4%) 1 ml NOW PRN IV Radiology Procedure 07/09/20 06:45 07/12/20 06:44 Vitamin D (Vitamin D) 5,000 unit DAILY GT 06/28/20 09:00 07/28/20 08:59 07/10/20 08:41 Assessment/Plan Assessment/Plan 1. COVID-19 pneumonia -Intubated 05/28/20 - We will continue broad-spectrum antibiotics. -s/p solumedrol, Rocephin -Continue PEEP 6 ->7 - Peak airway pressures high; 38 - FiO2 100% -> 90 ->80->60 ->40 ->80 ->100 ->70; PEEP 7 -will continue OGT feeding -Continue sedation; Need to keep patient completely sedated. 2. Hyponatremia -Per primary MD 3. Elevated inflammatory markers - has high D dimer; Lovenox re-started 4. Decrease PEEP Continue weaning efforts S/p trach Discussed with surgery Off IV fluids Begin dc planning to subacute; will need to wean down O2 prior to transfer Javier Nava MD Jul 10, 2020 10:31
--- NOTE | 2020-07-10 10:33 | NUR ---
NURSE NOTES: Dr. Nava at bedside. Made aware regarding latest ABG results today, and that RT tried to titrate FiO2 to 50%, and patient noted to desaturate, placed patient back to FiO2 70%. Dr. Nava aware of latest current ventilator settings.
--- NOTE | 2020-07-10 10:47 | Infectious Diseases Prog Note ---
Assessment/Plan Assessment/Plan antibiotics : none A 1. covid 19 pneumonia on 70 % Fi O2 with 99 % saturation s/p remdesivir s/p solumedrol 2. respiratory failure 3. serratia pneumonia s/p rx P 1. continue off antibiotics 2. continue isolation Subjective ROS Limited/Unobtainable: Yes Allergies: Coded Allergies: No Known Allergies (Unverified , 05/28/20) Objective Last 24 Hour Vital Signs Date Time Temp Pulse Resp B/P (MAP) Pulse Ox O2 Delivery O2 Flow Rate FiO2 07/10/20 09:45 90 17 100/62 (75) 100 07/10/20 09:30 94 24 104/63 (77) 100 07/10/20 09:15 94 17 101/66 (78) 100 07/10/20 09:00 94 17 99/66 (77) 100 07/10/20 08:45 100 24 97/62 (74) 99 07/10/20 08:30 108 24 101/78 (86) 94 07/10/20 08:25 70 07/10/20 08:15 50 07/10/20 08:15 100 26 104/83 (90) 99 07/10/20 08:00 Mechanical Ventilator Mechanical Ventilator 07/10/20 08:00 98.7 95 18 99/57 (71) 100 07/10/20 07:30 78 07/10/20 07:00 19 99/73 Mechanical Ventilator 70 07/10/20 07:00 19 93/53 Mechanical Ventilator 70 07/10/20 07:00 80 16 99/53 (68) 100 07/10/20 06:00 16 90/48 Mechanical Ventilator 70 07/10/20 06:00 20 99/48 Mechanical Ventilator 70 07/10/20 06:00 82 17 101/69 (80) 100 07/10/20 05:00 87 14 96/54 (68) 99 07/10/20 05:00 20 106/54 Mechanical Ventilator 70.0 70 07/10/20 05:00 17 101/68 Mechanical Ventilator 70 07/10/20 04:00 99.0 87 10 91/53 (66) 99 07/10/20 04:00 Mechanical Ventilator Mechanical Ventilator 07/10/20 04:00 12 91/53 Mechanical Ventilator 70 07/10/20 04:00 16 91/50 Mechanical Ventilator 70 07/10/20 04:00 70 2/17/21 04:00 98 07/10/20 03:50 13 93/51 Mechanical Ventilator 70 07/10/20 03:00 100 20 100/51 (67) 99 07/10/20 03:00 16 90/56 Mechanical Ventilator 70 07/10/20 03:00 15 93/50 Mechanical Ventilator 70 07/10/20 02:21 89 17 70 07/10/20 02:00 88 17 112/76 (88) 98 07/10/20 02:00 20 111/60 Mechanical Ventilator 70 07/10/20 02:00 13 105/56 Mechanical Ventilator 70 07/10/20 01:00 19 112/61 Mechanical Ventilator 70 07/10/20 01:00 14 112/72 Mechanical Ventilator 70 07/10/20 01:00 93 18 115/80 (92) 99 07/10/20 00:00 Mechanical Ventilator Mechanical Ventilator 07/10/20 00:00 98 07/10/20 00:00 18 122/68 Mechanical Ventilator 70 07/10/20 00:00 20 122/68 Mechanical Ventilator 70 07/10/20 00:00 70 07/10/20 00:00 99.5 96 18 122/68 (86) 100 07/09/20 23:16 102 24 70 07/09/20 23:00 101 19 116/74 (88) 98 07/09/20 23:00 20 122/65 Mechanical Ventilator 70 07/09/20 23:00 20 122/68 70 07/09/20 22:00 103 23 110/80 (90) 95 07/09/20 22:00 21 93/69 Mechanical Ventilator 70 07/09/20 22:00 21 93/69 Mechanical Ventilator 70 07/09/20 21:00 Mechanical Ventilator Mechanical Ventilator 07/09/20 21:00 23 114/55 Mechanical Ventilator 70 07/09/20 21:00 23 111/65 Mechanical Ventilator 70 07/09/20 21:00 95 07/09/20 21:00 104 26 111/67 (82) 92 07/09/20 20:00 70 07/09/20 20:00 99.0 103 22 100/55 (70) 92 07/09/20 20:00 17 114/55 Mechanical Ventilator 70 07/09/20 20:00 22 112/60 Mechanical Ventilator 70 07/09/20 19:22 99 32 70 07/09/20 19:00 17 110/68 Mechanical Ventilator 70 07/09/20 19:00 17 110/68 Mechanical Ventilator 70 07/09/20 19:00 99 17 110/68 (82) 97 07/09/20 18:45 101 23 121/78 (92) 96 07/09/20 18:30 98 23 101/67 (78) 96 07/09/20 18:15 103 22 114/76 (89) 93 07/09/20 18:00 92 20 112/73 (86) 99 07/09/20 18:00 20 112/73 Mechanical Ventilator 70 07/09/20 18:00 20 112/73 Mechanical Ventilator 70 07/09/20 17:45 93 23 113/79 (90) 98 07/09/20 17:45 23 113/79 Mechanical Ventilator 70 07/09/20 17:30 106 25 126/76 (93) 92 07/09/20 17:30 25 126/76 Mechanical Ventilator 70 07/09/20 17:15 93 17 112/62 (79) 100 07/09/20 17:00 92 23 120/69 (86) 99 07/09/20 17:00 23 120/69 Mechanical Ventilator 70 07/09/20 17:00 23 120/69 Mechanical Ventilator 70 07/09/20 16:45 18 108/71 Mechanical Ventilator 70 07/09/20 16:29 21 109/59 Mechanical Ventilator 70 07/09/20 16:00 Mechanical Ventilator Mechanical Ventilator 07/09/20 16:00 95 07/09/20 16:00 99.1 102 23 104/78 (87) 95 07/09/20 16:00 70 07/09/20 16:00 23 104/78 Mechanical Ventilator 70 07/09/20 16:00 23 104/78 Mechanical Ventilator 70 07/09/20 15:00 92 20 105/63 (77) 98 07/09/20 15:00 20 105/63 Mechanical Ventilator 70 07/09/20 15:00 20 105/63 Mechanical Ventilator 70 07/09/20 14:45 94 20 106/61 (76) 98 07/09/20 14:30 95 18 112/65 (81) 95 07/09/20 14:15 99 24 109/68 (82) 97 07/09/20 14:00 16 125/67 Mechanical Ventilator 70 07/09/20 14:00 16 125/67 Mechanical Ventilator 70 07/09/20 14:00 91 16 125/67 (86) 98 07/09/20 13:45 19 119/66 Mechanical Ventilator 70 07/09/20 13:45 89 19 119/66 (83) 99 07/09/20 13:30 97 30 117/83 (94) 96 07/09/20 13:20 95 34 70 07/09/20 13:15 22 105/53 Mechanical Ventilator 70 07/09/20 13:15 95 22 105/53 (70) 95 07/09/20 13:00 92 22 106/54 (71) 99 07/09/20 13:00 22 106/54 Mechanical Ventilator 70 07/09/20 13:00 22 106/54 Mechanical Ventilator 70 07/09/20 12:45 93 24 103/69 (80) 97 07/09/20 12:45 24 103/69 Mechanical Ventilator 60 07/09/20 12:43 24 111/97 Mechanical Ventilator 60 07/09/20 12:30 84 21 111/97 (102) 99 07/09/20 12:15 85 18 107/68 (81) 98 07/09/20 12:00 Mechanical Ventilator Mechanical Ventilator 07/09/20 12:00 99.1 86 19 101/59 (73) 99 07/09/20 12:00 19 101/59 Mechanical Ventilator 60 07/09/20 12:00 19 101/59 Mechanical Ventilator 60 07/09/20 12:00 87 07/09/20 11:45 82 18 98/62 (74) 99 07/09/20 11:30 82 18 103/64 (77) 98 07/09/20 11:20 70 07/09/20 11:18 70 07/09/20 11:15 97 26 108/62 (77) 88 07/09/20 11:00 18 95/55 Mechanical Ventilator 60 07/09/20 11:00 18 95/55 Mechanical Ventilator 60 07/09/20 11:00 80 18 95/55 (68) 95 07/09/20 10:53 60 07/09/20 10:52 60 Height (Feet): 5 Height (Inches): 6.00 Weight (Pounds): 239 HEENT: status post trach Laboratory Tests Test 07/10/20 04:30 07/10/20 08:03 White Blood Count 8.8 K/UL (4.8-10.8) Red Blood Count 2.75 M/UL (4.20-5.40) L Hemoglobin 7.8 G/DL (12.0-16.0) L Hematocrit 25.4 % (37.0-47.0) L Mean Corpuscular Volume 92 FL (80-99) Mean Corpuscular Hemoglobin 28.3 PG (27.0-31.0) Mean Corpuscular Hemoglobin Concent 30.7 G/DL (32.0-36.0) L Red Cell Distribution Width 17.7 % (11.6-14.8) H Platelet Count 237 K/UL (150-450) Mean Platelet Volume 8.3 FL (6.5-10.1) Neutrophils (%) (Auto) % (45.0-75.0) Lymphocytes (%) (Auto) % (20.0-45.0) Monocytes (%) (Auto) % (1.0-10.0) Eosinophils (%) (Auto) % (0.0-3.0) Basophils (%) (Auto) % (0.0-2.0) Arterial Blood pH 7.504 (7.350-7.450) Arterial Blood Partial Pressure CO2 54.5 mmHg (35.0-45.0) H Arterial Blood Partial Pressure O2 135.3 mmHg (75.0-100.0) H Arterial Blood HCO3 41.9 mmol/L (22.0-26.0) *H Arterial Blood Oxygen Saturation 98.7 % (95-100) Arterial Blood Base Excess 16.9 (-2-2) *H Jeremiah Test Positive Current Medications Medications (Trade) Dose Ordered Sig/Zelda Route PRN Reason Start Time Stop Time Status Last Admin Dose Admin Acetaminophen (Tylenol) 650 mg Q4H PRN NG Temp >100.5 06/29/20 10:15 07/29/20 10:14 07/08/20 18:26 Acetaminophen (Tylenol) 650 mg Q6H PRN NG Mild Pain (Pain Scale 1-3) 06/29/20 10:15 07/29/20 10:14 Chlorhexidine Gluconate (Inna-Hex 2%) 1 applic DAILY@1999 TOPIC 05/30/20 20:00 08/28/20 19:59 07/09/20 20:28 Dextrose (Dextrose 50%) 25 ml Q30M PRN IV Hypoglycemia 06/05/20 10:45 09/03/20 10:44 Dextrose (Dextrose 50%) 50 ml Q30M PRN IV Hypoglycemia 06/05/20 10:45 09/03/20 10:44 Fentanyl Citrate 250 ml @ 10.5 mls/hr Q24H IV 07/09/20 12:00 07/11/20 11:59 07/09/20 12:43 Furosemide (Lasix) 40 mg DAILY IV 06/22/20 09:00 07/22/20 08:59 07/10/20 08:41 Lansoprazole (Prevacid) 30 mg DAILY GT 07/10/20 09:00 08/09/20 08:59 07/10/20 08:41 Lidocaine HCl (Xylocaine 1% 30ml) 30 ml NOW PRN INJ Radiology Procedure 07/09/20 06:45 07/12/20 06:44 Midodrine (Pro-Amatine) 10 mg Q8HR GT 06/30/20 14:00 09/12/20 13:59 07/10/20 05:24 Sodium Bicarbonate (Sodium Bicarbonate 4%) 1 ml NOW PRN IV Radiology Procedure 07/09/20 06:45 07/12/20 06:44 Vitamin D (Vitamin D) 5,000 unit DAILY GT 06/28/20 09:00 07/28/20 08:59 07/10/20 08:41 Fili Mcelroy MD Jul 10, 2020 10:47
--- NOTE | 2020-07-10 12:18 | NUR ---
INSURANCE CLINICALS AND REVIEWS FAXED TO [facility] T: [phone] EXT [id number] F: [phone]
--- NOTE | 2020-07-10 12:45 | Surgery Progress Note ---
Surgery Progress Note Subjective Procedure Performed right femoral central venous line insertion Symptoms: improved Objective Last 24 Hour Vital Signs Date Time Temp Pulse Resp B/P (MAP) Pulse Ox O2 Delivery O2 Flow Rate FiO2 07/10/20 12:00 94 21 104/63 (77) 99 07/10/20 12:00 Mechanical Ventilator Mechanical Ventilator 07/10/20 12:00 21 104/63 Mechanical Ventilator 70 07/10/20 12:00 21 104/63 Mechanical Ventilator 70 07/10/20 11:35 98 07/10/20 11:00 24 111/59 Mechanical Ventilator 70 07/10/20 11:00 24 111/59 Mechanical Ventilator 70 07/10/20 11:00 91 24 111/59 (76) 100 07/10/20 10:00 91 21 104/85 (91) 100 07/10/20 10:00 21 104/85 Mechanical Ventilator 70 07/10/20 10:00 21 104/85 Mechanical Ventilator 70 07/10/20 09:45 90 17 100/62 (75) 100 07/10/20 09:30 94 24 104/63 (77) 100 07/10/20 09:15 94 17 101/66 (78) 100 07/10/20 09:00 94 17 99/66 (77) 100 07/10/20 09:00 17 99/66 Mechanical Ventilator 70 07/10/20 09:00 17 99/66 Mechanical Ventilator 70 07/10/20 08:45 100 24 97/62 (74) 99 07/10/20 08:30 108 24 101/78 (86) 94 07/10/20 08:25 70 07/10/20 08:15 50 07/10/20 08:15 100 26 104/83 (90) 99 07/10/20 08:00 Mechanical Ventilator Mechanical Ventilator 07/10/20 08:00 98.7 95 18 99/57 (71) 100 07/10/20 08:00 18 99/57 Mechanical Ventilator 70 07/10/20 08:00 18 99/57 Mechanical Ventilator 70 07/10/20 07:30 78 07/10/20 07:00 19 99/73 Mechanical Ventilator 70 07/10/20 07:00 19 93/53 Mechanical Ventilator 70 07/10/20 07:00 80 16 99/53 (68) 100 07/10/20 06:00 16 90/48 Mechanical Ventilator 70 07/10/20 06:00 20 99/48 Mechanical Ventilator 70 07/10/20 06:00 82 17 101/69 (80) 100 07/10/20 05:00 87 14 96/54 (68) 99 07/10/20 05:00 20 106/54 Mechanical Ventilator 70.0 70 07/10/20 05:00 17 101/68 Mechanical Ventilator 70 07/10/20 04:00 99.0 87 10 91/53 (66) 99 07/10/20 04:00 Mechanical Ventilator Mechanical Ventilator 07/10/20 04:00 12 91/53 Mechanical Ventilator 70 07/10/20 04:00 16 91/50 Mechanical Ventilator 70 07/10/20 04:00 70 07/10/20 04:00 98 07/10/20 03:50 13 93/51 Mechanical Ventilator 70 07/10/20 03:00 100 20 100/51 (67) 99 07/10/20 03:00 16 90/56 Mechanical Ventilator 70 07/10/20 03:00 15 93/50 Mechanical Ventilator 70 07/10/20 02:21 89 17 70 07/10/20 02:00 88 17 112/76 (88) 98 07/10/20 02:00 20 111/60 Mechanical Ventilator 70 07/10/20 02:00 13 105/56 Mechanical Ventilator 70 07/10/20 01:00 19 112/61 Mechanical Ventilator 70 07/10/20 01:00 14 112/72 Mechanical Ventilator 70 07/10/20 01:00 93 18 115/80 (92) 99 07/10/20 00:00 Mechanical Ventilator Mechanical Ventilator 07/10/20 00:00 98 07/10/20 00:00 18 122/68 Mechanical Ventilator 70 07/10/20 00:00 20 122/68 Mechanical Ventilator 70 07/10/20 00:00 70 07/10/20 00:00 99.5 96 18 122/68 (86) 100 07/09/20 23:16 102 24 70 07/09/20 23:00 101 19 116/74 (88) 98 07/09/20 23:00 20 122/65 Mechanical Ventilator 70 07/09/20 23:00 20 122/68 70 07/09/20 22:00 103 23 110/80 (90) 95 07/09/20 22:00 21 93/69 Mechanical Ventilator 70 07/09/20 22:00 21 93/69 Mechanical Ventilator 70 07/09/20 21:00 Mechanical Ventilator Mechanical Ventilator 07/09/20 21:00 23 114/55 Mechanical Ventilator 70 07/09/20 21:00 23 111/65 Mechanical Ventilator 70 07/09/20 21:00 95 07/09/20 21:00 104 26 111/67 (82) 92 07/09/20 20:00 70 07/09/20 20:00 99.0 103 22 100/55 (70) 92 07/09/20 20:00 17 114/55 Mechanical Ventilator 70 07/09/20 20:00 22 112/60 Mechanical Ventilator 70 07/09/20 19:22 99 32 70 07/09/20 19:00 17 110/68 Mechanical Ventilator 70 07/09/20 19:00 17 110/68 Mechanical Ventilator 70 07/09/20 19:00 99 17 110/68 (82) 97 07/09/20 18:45 101 23 121/78 (92) 96 07/09/20 18:30 98 23 101/67 (78) 96 07/09/20 18:15 103 22 114/76 (89) 93 07/09/20 18:00 92 20 112/73 (86) 99 07/09/20 18:00 20 112/73 Mechanical Ventilator 70 07/09/20 18:00 20 112/73 Mechanical Ventilator 70 07/09/20 17:45 93 23 113/79 (90) 98 07/09/20 17:45 23 113/79 Mechanical Ventilator 70 07/09/20 17:30 106 25 126/76 (93) 92 07/09/20 17:30 25 126/76 Mechanical Ventilator 70 07/09/20 17:15 93 17 112/62 (79) 100 07/09/20 17:00 92 23 120/69 (86) 99 07/09/20 17:00 23 120/69 Mechanical Ventilator 70 07/09/20 17:00 23 120/69 Mechanical Ventilator 70 07/09/20 16:45 18 108/71 Mechanical Ventilator 70 07/09/20 16:29 21 109/59 Mechanical Ventilator 70 07/09/20 16:00 Mechanical Ventilator Mechanical Ventilator 07/09/20 16:00 95 07/09/20 16:00 99.1 102 23 104/78 (87) 95 07/09/20 16:00 70 07/09/20 16:00 23 104/78 Mechanical Ventilator 70 07/09/20 16:00 23 104/78 Mechanical Ventilator 70 07/09/20 15:00 92 20 105/63 (77) 98 07/09/20 15:00 20 105/63 Mechanical Ventilator 70 07/09/20 15:00 20 105/63 Mechanical Ventilator 70 07/09/20 14:45 94 20 106/61 (76) 98 07/09/20 14:30 95 18 112/65 (81) 95 07/09/20 14:15 99 24 109/68 (82) 97 07/09/20 14:00 16 125/67 Mechanical Ventilator 70 07/09/20 14:00 16 125/67 Mechanical Ventilator 70 07/09/20 14:00 91 16 125/67 (86) 98 07/09/20 13:45 19 119/66 Mechanical Ventilator 70 07/09/20 13:45 89 19 119/66 (83) 99 07/09/20 13:30 97 30 117/83 (94) 96 07/09/20 13:20 95 34 70 07/09/20 13:15 22 105/53 Mechanical Ventilator 70 07/09/20 13:15 95 22 105/53 (70) 95 07/09/20 13:00 92 22 106/54 (71) 99 07/09/20 13:00 22 106/54 Mechanical Ventilator 70 07/09/20 13:00 22 106/54 Mechanical Ventilator 70 07/09/20 12:45 93 24 103/69 (80) 97 07/09/20 12:45 24 103/69 Mechanical Ventilator 60 I&O Intake and Output 07/09/20 07/10/20 19:00 07:00 Intake Total 290.105 ml 360 ml Output Total 320 ml 550 ml Balance -29.895 ml -190 ml IV Total 290.105 ml 360 ml Output Urine Total 240 ml 370 ml Stool Total 60 ml Gastric Drainage Total 20 ml 180 ml # Bowel Movements 50 Dressing: saturated Cardiovascular: RSR Respiratory: decreased breath sounds Abdomen: soft, flat, non-tender, present bowel sounds, non-distended Extremities: no edema, no tenderness, no cyanosis Laboratory Tests Test 07/10/20 04:30 07/10/20 08:03 White Blood Count 8.8 K/UL (4.8-10.8) Red Blood Count 2.75 M/UL (4.20-5.40) L Hemoglobin 7.8 G/DL (12.0-16.0) L Hematocrit 25.4 % (37.0-47.0) L Mean Corpuscular Volume 92 FL (80-99) Mean Corpuscular Hemoglobin 28.3 PG (27.0-31.0) Mean Corpuscular Hemoglobin Concent 30.7 G/DL (32.0-36.0) L Red Cell Distribution Width 17.7 % (11.6-14.8) H Platelet Count 237 K/UL (150-450) Mean Platelet Volume 8.3 FL (6.5-10.1) Neutrophils (%) (Auto) % (45.0-75.0) Lymphocytes (%) (Auto) % (20.0-45.0) Monocytes (%) (Auto) % (1.0-10.0) Eosinophils (%) (Auto) % (0.0-3.0) Basophils (%) (Auto) % (0.0-2.0) Arterial Blood pH 7.504 (7.350-7.450) Arterial Blood Partial Pressure CO2 54.5 mmHg (35.0-45.0) H Arterial Blood Partial Pressure O2 135.3 mmHg (75.0-100.0) H Arterial Blood HCO3 41.9 mmol/L (22.0-26.0) *H Arterial Blood Oxygen Saturation 98.7 % (95-100) Arterial Blood Base Excess 16.9 (-2-2) *H Jeremiah Test Positive Plan Problems: (1) Respiratory distress (2) Respiratory failure Assessment & Plan: 50-year-old female Covid positive respiratory insufficiency intubated on ventilatory support declining. Leukocytosis increase oxygen requirement. Vent settings per pulmonology reviewed identified and agree. Un fortunately further surgical invention at this time is not appropriate as patient is not a candidate and her current condition. Prognosis overall guarded. Tracheostomy can be considered in the future if recovering or shows improvement and requires unable to be weaned from ventilator support. Currently okay for nutritional optimization with NG tube. Will need significant monitor ing for decubitus formation given patient's size and condition. Okay for air mattress tolerated. Turn every 2 hours as tolerated. Patient is otherwise critically ill and blood pressure labile. Will need to monitor closely.Bilateral infiltrates are again demonstrated. Stable tube and line positions. will need trach will need to wean vent first (3) Hypoxia (4) Pneumonia due to COVID-19 virus Assessment & Plan: ++ as per pulm and ID (5) Diabetes mellitus out of control Assessment & Plan: DAILY ESTIMATED NEEDS: Needs based on Critical care, obesity 11-14kcal/kg actual body wt (140kg) kcals/kg 8506-2314 total kcals 1.5-2.0g prot/kg IBW (64.5kg) g protein/kg 96-129 g total protein 25-30ml/kg abw (83kg) mL/kg 4467-1996 total fluid mLs NUTRITION DIAGNOSIS: Swallowing difficulty R/T respiratory failure as evidenced by pt orally intubated and sedated, on OGT feeds. CURRENT TF: Vital 1.2 goal of 60ml/hr ENTERAL NUTRITION RECOMMENDATIONS: Vital AF 1.2 @ 60ml/hr x 24 hrs to provide 1440ml, 1728kcal, 108g prot, 1168ml free water * Maintain current critical care and carb controlled TF formula of Vital AF * TF @ goal meeds 100% est kcal/prot needs * HOB over 30 degrees/ water flush per MD TF may be lowered to 55ml/hr for improved BG control while maintaining Kcal and pro needs. ADDITIONAL RECOMMENDATIONS: * Calibrated bedscale wt * Monitor Propofol rate, need for TF adjustment-> now off * Monitor BGs closely : now improved, on novolog q 6rs + NISS * Monitor lytes- K elevated, monitor need for TF change * Rec bowel regimen- now w/ rectal tube . Az Devine Jul 10, 2020 12:45
[2020-07-10] MEDS: fentaNYL 2500mcg/NS 250ml 250 ML IV SCH (13:01)
--- NOTE | 2020-07-10 13:34 | Nephrology Progress Note ---
Assessment/Plan Problem List: (1) DEVENDRA (acute kidney injury) (2) Morbid obesity (3) Diabetes mellitus out of control (4) Pneumonia due to COVID-19 virus (5) Respiratory failure Assessment Acute renal failure Obstructive uropathy, clogged Lennon Respiratory failure COVID-19 pneumonia Morbid obesity Plan July 10: Full code. On ventilator. FiO2 70%. Hemoglobin mid sevens. Renal parameters stable. Continue per consultants. July 09: Labs reviewed. Renal parameters stable. FiO2 80% unchanged. Continue per pulmonary. July 08: Labs reviewed. Renal parameters and electrolytes stable. ABG suggestive of high PCO2. At this time patient is on FiO2 of 80%. Continue per pulmonary. Continue to monitor renal parameters. July 07: No CHEM panel drawn today. More potassium given. Continue to monitor renal parameters. Continue per consultants. Discussed with RAKEL Veras. July 06: Low potassium addressed. Albumin bolus for low BP given. Patient remains full code. Continue to monitor electrolytes and renal parameters. Continue per consultants. 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 July 05: Trach to vent. FiO2 80%. Renal parameters stable. PCO2 remains high at 44. Continue to monitor renal parameters. July 04: Patient now trach. Full code. Labs reviewed. Renal parameters stable. Low magnesium addressed. July 03: Intubated. Full code. Labs reviewed. Abnormal electrolytes addressed. Continue per consultants. Overall status unchanged. July 02: Remains intubated. Remains full code. Remains on FiO2 of 70%. Lab s reviewed. Abnormal electrolytes addressed. Continue per pulmonary. July 01: Remains on 70% FiO2. Full code. Intubated on ventilator. Retaining CO2. Discussed with RN. Will do ABG today. Albumin bolus given. 1 dose of Diamox given. June 30: Status quo. Labs reviewed. Abnormal electrolytes addressed. Remains full code. Remains on ventilator. Magnesium sulfate 4 gram IVPB given. June 29: Full code. Intubated on ventilator. Labs reviewed. Stable from renal standpoint of view. Continue per consultants. June 28: Remains full code. Remains intubated on ventilator. Labs reviewed. Vitamin D supplement ordered. Continue to monitor renal parameters. Continue per consultants. June 27: Remains full code. Intubated on ventilator. Labs reviewed. Abnormal electrolyte addressed. Continue to monitor renal parameters and electrolytes. Continue per consultants. June 26: Labs reviewed. Remains full code. Remains intubated. Back on NGT feeding. Continue to monitor renal parameters. June 25: Labs reviewed. Renal parameters stable. Remains full code. Due to positional status patient could not be fed via NG tube. Starting TPN? Is being entertained. Continue per consultants. June 24: Labs reviewed. Renal parameters stable. Remains full code. Remains intubated on ventilator. Continue per consultants. June 23: Labs reviewed. Renal parameters stable. Discussed with RN. Abnormal electrolyte addressed. Remains full code. Remains on ventilator. Continue per consultants. June 22: Labs reviewed. Low potassium addressed. Discussed with RAKEL Moran. Patient full code. Remains on ventilator. Continue to monitor renal parameters. June 21. Labs reviewed. Abnormal electrolyte addressed. Full code. Remains on ventilator. Medication list reviewed. Continue per pulmonary management. DC IV fluid, resume Lasix daily, check chest x-ray. June 20: Labs reviewed. Abnormal electrolytes. Patient remains full code. Continue per consultants. Noted and addressed June 19: Labs reviewed. Abnormal electrolytes noted and addressed. Remains intubated on ventilator. Remains full code. June 18: Labs reviewed. Remains intubated on ventilator. Full code. Abnormal electrolyte addressed. Continue as is. June 17: Labs reviewed. Abnormal electrolytes addressed. Patient remains full code and intubated on ventilator. Continue per consultants. Renal parameters are within normal limits. June 16: Labs reviewed. Potassium chloride replaced. Remains full code. Re anton intubated on ventilator. Continue per consultants. Continue to monitor renal parameters. June 15: Labs reviewed. Serum creatinine 1. Stable from renal standpoint to view. Continue per consultants. June 14: Labs reviewed. Full code. Serum creatinine of 3.5 down to 1.4. Low potassium addressed. Continue per current treatment plan. Continue to monitor renal parameters. Midodrine started. Albumin bolus given. Previously: DC Lasix drip Increase Protonix dose Monitor renal parameters, electrolytes Per orders Subjective ROS Limited/Unobtainable: Yes Objective Objective Last 24 Hour Vital Signs Date Time Temp Pulse Resp B/P (MAP) Pulse Ox O2 Delivery O2 Flow Rate FiO2 07/10/20 13:01 19 99/69 Mechanical Ventilator 70 07/10/20 13:00 19 99/69 Mechanical Ventilator 70 07/10/20 13:00 99.4 89 18 96/51 (66) 100 07/10/20 12:58 99/69 (79) 07/10/20 12:00 94 21 104/63 (77) 99 07/10/20 12:00 Mechanical Ventilator Mechanical Ventilator 07/10/20 12:00 21 104/63 Mechanical Ventilator 70 07/10/20 12:00 21 104/63 Mechanical Ventilator 70 07/10/20 11:35 98 07/10/20 11:00 24 111/59 Mechanical Ventilator 70 07/10/20 11:00 24 111/59 Mechanical Ventilator 70 07/10/20 11:00 91 24 111/59 (76) 100 07/10/20 10:00 91 21 104/85 (91) 100 07/10/20 10:00 21 104/85 Mechanical Ventilator 70 07/10/20 10:00 21 104/85 Mechanical Ventilator 70 07/10/20 09:45 90 17 100/62 (75) 100 07/10/20 09:30 94 24 104/63 (77) 100 07/10/20 09:15 94 17 101/66 (78) 100 07/10/20 09:00 94 17 99/66 (77) 100 07/10/20 09:00 17 99/66 Mechanical Ventilator 70 07/10/20 09:00 17 99/66 Mechanical Ventilator 70 07/10/20 08:45 100 24 97/62 (74) 99 07/10/20 08:30 108 24 101/78 (86) 94 07/10/20 08:25 70 07/10/20 08:15 50 07/10/20 08:15 100 26 104/83 (90) 99 07/10/20 08:00 Mechanical Ventilator Mechanical Ventilator 07/10/20 08:00 98.7 95 18 99/57 (71) 100 07/10/20 08:00 18 99/57 Mechanical Ventilator 70 07/10/20 08:00 18 99/57 Mechanical Ventilator 70 07/10/20 07:30 78 07/10/20 07:00 19 99/73 Mechanical Ventilator 70 07/10/20 07:00 19 93/53 Mechanical Ventilator 70 07/10/20 07:00 80 16 99/53 (68) 100 07/10/20 06:00 16 90/48 Mechanical Ventilator 70 07/10/20 06:00 20 99/48 Mechanical Ventilator 70 07/10/20 06:00 82 17 101/69 (80) 100 07/10/20 05:00 87 14 96/54 (68) 99 07/10/20 05:00 20 106/54 Mechanical Ventilator 70.0 70 07/10/20 05:00 17 101/68 Mechanical Ventilator 70 07/10/20 04:00 99.0 87 10 91/53 (66) 99 07/10/20 04:00 Mechanical Ventilator Mechanical Ventilator 07/10/20 04:00 12 91/53 Mechanical Ventilator 70 07/10/20 04:00 16 91/50 Mechanical Ventilator 70 07/10/20 04:00 70 07/10/20 04:00 98 07/10/20 03:50 13 93/51 Mechanical Ventilator 70 07/10/20 03:00 100 20 100/51 (67) 99 07/10/20 03:00 16 90/56 Mechanical Ventilator 70 07/10/20 03:00 15 93/50 Mechanical Ventilator 70 07/10/20 02:21 89 17 70 07/10/20 02:00 88 17 112/76 (88) 98 07/10/20 02:00 20 111/60 Mechanical Ventilator 70 07/10/20 02:00 13 105/56 Mechanical Ventilator 70 07/10/20 01:00 19 112/61 Mechanical Ventilator 70 07/10/20 01:00 14 112/72 Mechanical Ventilator 70 07/10/20 01:00 93 18 115/80 (92) 99 07/10/20 00:00 Mechanical Ventilator Mechanical Ventilator 07/10/20 00:00 98 07/10/20 00:00 18 122/68 Mechanical Ventilator 70 07/10/20 00:00 20 122/68 Mechanical Ventilator 70 07/10/20 00:00 70 07/10/20 00:00 99.5 96 18 122/68 (86) 100 07/09/20 23:16 102 24 70 07/09/20 23:00 101 19 116/74 (88) 98 07/09/20 23:00 20 122/65 Mechanical Ventilator 70 07/09/20 23:00 20 122/68 70 07/09/20 22:00 103 23 110/80 (90) 95 07/09/20 22:00 21 93/69 Mechanical Ventilator 70 07/09/20 22:00 21 93/69 Mechanical Ventilator 70 07/09/20 21:00 Mechanical Ventilator Mechanical Ventilator 07/09/20 21:00 23 114/55 Mechanical Ventilator 70 07/09/20 21:00 23 111/65 Mechanical Ventilator 70 07/09/20 21:00 95 07/09/20 21:00 104 26 111/67 (82) 92 07/09/20 20:00 70 07/09/20 20:00 99.0 103 22 100/55 (70) 92 07/09/20 20:00 17 114/55 Mechanical Ventilator 70 07/09/20 20:00 22 112/60 Mechanical Ventilator 70 07/09/20 19:22 99 32 70 07/09/20 19:00 17 110/68 Mechanical Ventilator 70 07/09/20 19:00 17 110/68 Mechanical Ventilator 70 07/09/20 19:00 99 17 110/68 (82) 97 07/09/20 18:45 101 23 121/78 (92) 96 07/09/20 18:30 98 23 101/67 (78) 96 07/09/20 18:15 103 22 114/76 (89) 93 07/09/20 18:00 92 20 112/73 (86) 99 07/09/20 18:00 20 112/73 Mechanical Ventilator 70 07/09/20 18:00 20 112/73 Mechanical Ventilator 70 07/09/20 17:45 93 23 113/79 (90) 98 07/09/20 17:45 23 113/79 Mechanical Ventilator 70 07/09/20 17:30 106 25 126/76 (93) 92 07/09/20 17:30 25 126/76 Mechanical Ventilator 70 07/09/20 17:15 93 17 112/62 (79) 100 07/09/20 17:00 92 23 120/69 (86) 99 07/09/20 17:00 23 120/69 Mechanical Ventilator 70 07/09/20 17:00 23 120/69 Mechanical Ventilator 70 07/09/20 16:45 18 108/71 Mechanical Ventilator 70 07/09/20 16:29 21 109/59 Mechanical Ventilator 70 07/09/20 16:00 Mechanical Ventilator Mechanical Ventilator 07/09/20 16:00 95 07/09/20 16:00 99.1 102 23 104/78 (87) 95 07/09/20 16:00 70 07/09/20 16:00 23 104/78 Mechanical Ventilator 70 07/09/20 16:00 23 104/78 Mechanical Ventilator 70 07/09/20 15:00 92 20 105/63 (77) 98 07/09/20 15:00 20 105/63 Mechanical Ventilator 70 07/09/20 15:00 20 105/63 Mechanical Ventilator 70 07/09/20 14:45 94 20 106/61 (76) 98 07/09/20 14:30 95 18 112/65 (81) 95 07/09/20 14:15 99 24 109/68 (82) 97 07/09/20 14:00 16 125/67 Mechanical Ventilator 70 07/09/20 14:00 16 125/67 Mechanical Ventilator 70 07/09/20 14:00 91 16 125/67 (86) 98 07/09/20 13:45 19 119/66 Mechanical Ventilator 70 07/09/20 13:45 89 19 119/66 (83) 99 Intake and Output 07/09/20 07/10/20 19:00 07:00 Intake Total 290.105 ml 360 ml Output Total 320 ml 550 ml Balance -29.895 ml -190 ml IV Total 290.105 ml 360 ml Output Urine Total 240 ml 370 ml Stool Total 60 ml Gastric Drainage Total 20 ml 180 ml # Bowel Movements 50 Current Medications Medications (Trade) Dose Ordered Sig/Zelda Route PRN Reason Start Time Stop Time Status Last Admin Dose Admin Acetaminophen (Tylenol) 650 mg Q4H PRN NG Temp >100.5 06/29/20 10:15 07/29/20 10:14 07/08/20 18:26 Acetaminophen (Tylenol) 650 mg Q6H PRN NG Mild Pain (Pain Scale 1-3) 06/29/20 10:15 07/29/20 10:14 Chlorhexidine Gluconate (Inna-Hex 2%) 1 applic DAILY@2000 TOPIC 05/30/20 20:00 08/28/20 19:59 07/09/20 20:28 Dextrose (Dextrose 50%) 25 ml Q30M PRN IV Hypoglycemia 06/05/20 10:45 09/03/20 10:44 Dextrose (Dextrose 50%) 50 ml Q30M PRN IV Hypoglycemia 06/05/20 10:45 09/03/20 10:44 Fentanyl Citrate 250 ml @ 10.5 mls/hr Q24H IV 07/09/20 12:00 07/11/20 11:59 07/10/20 13:01 Furosemide (Lasix) 40 mg DAILY IV 06/22/20 09:00 07/22/20 08:59 07/10/20 08:41 Lansoprazole (Prevacid) 30 mg DAILY GT 07/10/20 09:00 08/09/20 08:59 07/10/20 08:41 Lidocaine HCl (Xylocaine 1% 30ml) 30 ml NOW PRN INJ Radiology Procedure 07/09/20 06:45 07/12/20 06:44 Midazolam HCl 200 ml @ 0 mls/hr Q24H PRN IV To Patient Comfort 07/10/20 12:00 07/17/20 11:59 07/10/20 13:00 Midodrine (Pro-Amatine) 10 mg Q8HR GT 06/30/20 14:00 09/12/20 13:59 07/10/20 05:24 Sodium Bicarbonate (Sodium Bicarbonate 4%) 1 ml NOW PRN IV Radiology Procedure 07/09/20 06:45 07/12/20 06:44 Vitamin D (Vitamin D) 5,000 unit DAILY GT 06/28/20 09:00 07/28/20 08:59 07/10/20 08:41 Laboratory Tests 07/10/20 04:30: White Blood Count 8.8, Red Blood Count 2.75L, Hemoglobin 7.8L, Hematocrit 25.4L, Mean Corpuscular Volume 92, Mean Corpuscular Hemoglobin 28.3, Mean Corpuscular Hemoglobin Concent 30.7L, Red Cell Distribution Width 17.7H, Platelet Count 237, Mean Platelet Volume 8.3, Neutrophils (%) (Auto) , Lymphocytes (%) (Auto) , Monocytes (%) (Auto) , Eosinophils (%) (Auto) , Basophils (%) (Auto) 07/10/20 08:03: Arterial Blood pH 7.504H, Arterial Blood Partial Pressure CO2 54.5H, Arterial Blood Partial Pressure O2 135.3H, Arterial Blood HCO3 41.9*H, Arterial Blood Oxygen Saturation 98.7, Arterial Blood Base Excess 16.9*H, Jeremiah Test Positive Height (Feet): 5 Height (Inches): 6.00 Weight (Pounds): 239 General Appearance: no apparent distress EENT: other - Intubated on ventilator. FiO2 70%. Cardiovascular: tachycardia Respiratory/Chest: decreased breath sounds Abdomen: distended Rigo Tyler MD Jul 10, 2020 13:34
--- NOTE | 2020-07-10 16:14 | General Progress Note ---
Subjective Constitutional: Reports: weakness Allergies: Coded Allergies: No Known Allergies (Unverified , 05/28/20) All Systems: reviewed and negative except above Subjective trach vent ng in icu Objective Last 24 Hour Vital Signs Date Time Temp Pulse Resp B/P (MAP) Pulse Ox O2 Delivery O2 Flow Rate FiO2 07/10/20 15:00 102 20 108/67 (81) 99 07/10/20 14:00 97 24 113/90 (98) 100 07/10/20 13:01 19 99/69 Mechanical Ventilator 70 07/10/20 13:00 19 99/69 Mechanical Ventilator 70 07/10/20 13:00 99.4 89 18 96/51 (66) 100 07/10/20 12:58 99/69 (79) 07/10/20 12:00 94 21 104/63 (77) 99 07/10/20 12:00 Mechanical Ventilator Mechanical Ventilator 07/10/20 12:00 21 104/63 Mechanical Ventilator 70 07/10/20 12:00 21 104/63 Mechanical Ventilator 70 07/10/20 11:35 98 07/10/20 11:00 24 111/59 Mechanical Ventilator 70 07/10/20 11:00 24 111/59 Mechanical Ventilator 70 07/10/20 11:00 91 24 111/59 (76) 100 07/10/20 10:00 91 21 104/85 (91) 100 07/10/20 10:00 21 104/85 Mechanical Ventilator 70 07/10/20 10:00 21 104/85 Mechanical Ventilator 70 07/10/20 09:45 90 17 100/62 (75) 100 07/10/20 09:30 94 24 104/63 (77) 100 07/10/20 09:15 94 17 101/66 (78) 100 07/10/20 09:00 94 17 99/66 (77) 100 07/10/20 09:00 17 99/66 Mechanical Ventilator 70 07/10/20 09:00 17 99/66 Mechanical Ventilator 70 07/10/20 08:45 100 24 97/62 (74) 99 07/10/20 08:30 108 24 101/78 (86) 94 07/10/20 08:25 70 07/10/20 08:15 50 07/10/20 08:15 100 26 104/83 (90) 99 07/10/20 08:00 Mechanical Ventilator Mechanical Ventilator 07/10/20 08:00 98.7 95 18 99/57 (71) 100 07/10/20 08:00 18 99/57 Mechanical Ventilator 70 07/10/20 08:00 18 99/57 Mechanical Ventilator 70 07/10/20 07:30 78 07/10/20 07:00 19 99/73 Mechanical Ventilator 70 07/10/20 07:00 19 93/53 Mechanical Ventilator 70 07/10/20 07:00 80 16 99/53 (68) 100 07/10/20 06:00 16 90/48 Mechanical Ventilator 70 07/10/20 06:00 20 99/48 Mechanical Ventilator 70 07/10/20 06:00 82 17 101/69 (80) 100 07/10/20 05:00 87 14 96/54 (68) 99 07/10/20 05:00 20 106/54 Mechanical Ventilator 70.0 70 07/10/20 05:00 17 101/68 Mechanical Ventilator 70 07/10/20 04:00 99.0 87 10 91/53 (66) 99 07/10/20 04:00 Mechanical Ventilator Mechanical Ventilator 07/10/20 04:00 12 91/53 Mechanical Ventilator 70 07/10/20 04:00 16 91/50 Mechanical Ventilator 70 07/10/20 04:00 70 07/10/20 04:00 98 07/10/20 03:50 13 93/51 Mechanical Ventilator 70 07/10/20 03:00 100 20 100/51 (67) 99 07/10/20 03:00 16 90/56 Mechanical Ventilator 70 07/10/20 03:00 15 93/50 Mechanical Ventilator 70 07/10/20 02:21 89 17 70 07/10/20 02:00 88 17 112/76 (88) 98 07/10/20 02:00 20 111/60 Mechanical Ventilator 70 07/10/20 02:00 13 105/56 Mechanical Ventilator 70 07/10/20 01:00 19 112/61 Mechanical Ventilator 70 07/10/20 01:00 14 112/72 Mechanical Ventilator 70 07/10/20 01:00 93 18 115/80 (92) 99 07/10/20 00:00 Mechanical Ventilator Mechanical Ventilator 07/10/20 00:00 98 07/10/20 00:00 18 122/68 Mechanical Ventilator 70 07/10/20 00:00 20 122/68 Mechanical Ventilator 70 07/10/20 00:00 70 07/10/20 00:00 99.5 96 18 122/68 (86) 100 07/09/20 23:16 102 24 70 07/09/20 23:00 101 19 116/74 (88) 98 07/09/20 23:00 20 122/65 Mechanical Ventilator 70 07/09/20 23:00 20 122/68 70 07/09/20 22:00 103 23 110/80 (90) 95 07/09/20 22:00 21 93/69 Mechanical Ventilator 70 07/09/20 22:00 21 93/69 Mechanical Ventilator 70 07/09/20 21:00 Mechanical Ventilator Mechanical Ventilator 07/09/20 21:00 23 114/55 Mechanical Ventilator 70 07/09/20 21:00 23 111/65 Mechanical Ventilator 70 07/09/20 21:00 95 07/09/20 21:00 104 26 111/67 (82) 92 07/09/20 20:00 70 07/09/20 20:00 99.0 103 22 100/55 (70) 92 07/09/20 20:00 17 114/55 Mechanical Ventilator 70 07/09/20 20:00 22 112/60 Mechanical Ventilator 70 07/09/20 19:22 99 32 70 07/09/20 19:00 17 110/68 Mechanical Ventilator 70 07/09/20 19:00 17 110/68 Mechanical Ventilator 70 07/09/20 19:00 99 17 110/68 (82) 97 07/09/20 18:45 101 23 121/78 (92) 96 07/09/20 18:30 98 23 101/67 (78) 96 07/09/20 18:15 103 22 114/76 (89) 93 07/09/20 18:00 92 20 112/73 (86) 99 07/09/20 18:00 20 112/73 Mechanical Ventilator 70 07/09/20 18:00 20 112/73 Mechanical Ventilator 70 07/09/20 17:45 93 23 113/79 (90) 98 07/09/20 17:45 23 113/79 Mechanical Ventilator 70 07/09/20 17:30 106 25 126/76 (93) 92 07/09/20 17:30 25 126/76 Mechanical Ventilator 70 07/09/20 17:15 93 17 112/62 (79) 100 07/09/20 17:00 92 23 120/69 (86) 99 07/09/20 17:00 23 120/69 Mechanical Ventilator 70 07/09/20 17:00 23 120/69 Mechanical Ventilator 70 07/09/20 16:45 18 108/71 Mechanical Ventilator 70 07/09/20 16:29 21 109/59 Mechanical Ventilator 70 Intake and Output 07/09/20 07/10/20 19:00 07:00 Intake Total 290.105 ml 360 ml Output Total 320 ml 550 ml Balance -29.895 ml -190 ml IV Total 290.105 ml 360 ml Output Urine Total 240 ml 370 ml Stool Total 60 ml Gastric Drainage Total 20 ml 180 ml # Bowel Movements 50 Laboratory Tests 07/10/20 04:30: White Blood Count 8.8, Red Blood Count 2.75L, Hemoglobin 7.8L, Hematocrit 25.4L, Mean Corpuscular Volume 92, Mean Corpuscular Hemoglobin 28.3, Mean Corpuscular Hemoglobin Concent 30.7L, Red Cell Distribution Width 17.7H, Platelet Count 237, Mean Platelet Volume 8.3, Neutrophils (%) (Auto) , Lymphocytes (%) (Auto) , Monocytes (%) (Auto) , Eosinophils (%) (Auto) , Basophils (%) (Auto) 07/10/20 08:03: Arterial Blood pH 7.504H, Arterial Blood Partial Pressure CO2 54.5H, Arterial Blood Partial Pressure O2 135.3H, Arterial Blood HCO3 41.9*H, Arterial Blood Oxygen Saturation 98.7, Arterial Blood Base Excess 16.9*H, Jeremiah Test Positive Height (Feet): 5 Height (Inches): 6.00 Weight (Pounds): 239 General Appearance: lethargic EENT: normal ENT inspection Neck: normal alignment Cardiovascular: normal peripheral pulses, normal rate, regular rhythm Respiratory/Chest: chest wall non-tender, lungs clear, normal breath sounds Abdomen: normal bowel sounds, non tender, soft Extremities: normal inspection Edema: no edema noted Arm (L), no edema noted Arm (R), no edema noted Leg (L), no edema noted Leg (R), no edema noted Pedal (L), no edema noted Pedal (R), no edema noted Generalized Neurologic: motor weakness Skin: normal pigmentation, warm/dry Assessment/Plan Problem List: (1) Hypoxia ICD Codes: R09.02 - Hypoxemia SNOMED: 837439982 (2) Respiratory failure ICD Codes: J96.90 - Respiratory failure, unspecified, unspecified whether with hypoxia or hypercapnia SNOMED: 960161286 (3) Respiratory distress ICD Codes: R06.03 - Acute respiratory distress; J12.82 - Pneumonia due to coronavirus disease 2019 SNOMED: 855140557 (4) Pneumonia due to COVID-19 virus ICD Codes: U07.1 - COVID-19; J12.82 - Pneumonia due to coronavirus disease 2019 SNOMED: 274056629972279053 Status: unchanged Assessment/Plan: vent abx id pulm f/u cbc bmp am Tank Del Cid DO Jul 10, 2020 16:14
--- NOTE | 2020-07-10 19:30 | NUR ---
NURSE HAND-OFF REPORT: Latest Vital Signs: Temperature 99.0 , Pulse 97 , B/P 89 /41 , Respiratory Rate 20 , O2 SAT 98 , Mechanical Ventilator, O2 Flow Rate . Vital Sign Comment: lighlt sedated RASS -2 EKG Rhythm: SR Rhythm change?: N Latest Meyers Fall Score: 70 Fall Risk: High Risk Safety Measures: Call light Within Reach, Bed Alarm Zone 1, Side Rails Side Rails x2, Bed position Low and Locked. Fall Precautions: Yellow Socks Report given to Pau Levi RN.
--- NOTE | 2020-07-10 20:15 | NUR ---
NURSE NOTES: received report from alice rn sedated with fent and versed with -2rass orally trach-vent o2 [id number]% no sob npo -suction reposition iv site infusing well dressing dry and intact
[2020-07-10] MEDS: Dyna-Hex 2% Top Sol 2oz TOPIC SCH (20:45)
--- NOTE | 2020-07-10 22:00 | NUR ---
NURSE NOTES: reposition and suction condition and suction
[2020-07-11] VITALS (24 sets, daily range): BP systolic 91–125; BP diastolic 36–87
--- NOTE | 2020-07-11 | NUR ---
NURSE NOTES: bs 100 no coverage
[2020-07-11] MEDS: Versed 100mg/NS 200ml 200 ML IV PRN ×3 (00:23→22:10)
--- NOTE | 2020-07-11 04:00 | NUR ---
NURSE NOTES: complete bed bath oral care and back care done
[2020-07-11 04:39] LABS: BASOPHILS % (AUTO) 0.9 % (0.0-2.0); EOSINOPHILS % (AUTO) 7.3 % (0.0-3.0); HEMATOCRIT 29.7 % (37.0-47.0); HEMOGLOBIN 9.2 G/DL (12.0-16.0); LYMPHOCYTES % (AUTO) 24.5 % (20.0-45.0); MEAN CORPUSCULAR VOLUME 93 FL (80-99); MONOCYTES % (AUTO) 8.3 % (1.0-10.0); NEUTROPHILS % (AUTO) 58.9 % (45.0-75.0); PLATELET COUNT 325 K/UL (150-450); RED BLOOD COUNT 3.18 M/UL (4.20-5.40); RED CELL DISTRIBUTION WIDTH 17.9 % (11.6-14.8); WHITE BLOOD COUNT 10.7 K/UL (4.8-10.8)
[2020-07-11 05:35] LABS: ALANINE AMINOTRANSFERASE 17 U/L (12-78); ALBUMIN 2.4 G/DL (3.4-5.0); ALBUMIN/GLOBULIN RATIO 0.4 (1.0-2.7); ALKALINE PHOSPHATASE 73 U/L (46-116); ANION GAP 4 mmol/L (5-15); ASPARTATE AMINO TRANSFERASE 28 U/L (15-37); BILIRUBIN,TOTAL 1.5 MG/DL (0.2-1.0); BLOOD UREA NITROGEN 9 mg/dL (7-18); CALCIUM 9.7 MG/DL (8.5-10.1); CARBON DIOXIDE 40 MMOL/L (21-32); CHLORIDE 95 MMOL/L (98-107); CREATININE 0.4 MG/DL (0.55-1.30); PHOSPHORUS 3.6 MG/DL (2.5-4.9); POTASSIUM 3.7 MMOL/L (3.5-5.1); SODIUM 139 MMOL/L (136-145)
[2020-07-11 05:39] LABS: BILIRUBIN,DIRECT 0.3 MG/DL (0.0-0.3)
[2020-07-11] MEDS: Midodrine 10mg tab GT SCH ×3 (06:21→22:08)
--- NOTE | 2020-07-11 06:54 | Hematology/Onc Progress Note ---
Assessment/Plan Assessment/Plan # Deep vein thrombosis of the right calf --> given onoing anemia and low plts --> consider ivc if bleeding--once stable, needs it placed --> once stable, for radiology and ivc filter placement # Thrombocytopenia is due to infection/underlying covid19+++ --> ABX ceftriaxone -->zosyn-->off --> on steriods likely cause of initial wbc --> per pulm --> plt 107->156-->192-->205 --> smear reviewed # Anemia due to chronic disease --> hgb goal is >7 --> transfuse prn --> ferritin is >1000 --> hold off on iron --> 10-->9.8->9-->8-->8.2-->9.4-->8.1-->9.9-->8 .7-->9.7-->9.5-->8.1-->8.8->8.5->7.2-->7.8-->9 # Elevated ddimer due to covid19++ --> duplex legs is negative --> underlying covid rx # Hypoxia -> due to covid19 # Hypoxemia --> rx same as above # Respiratory failure --> on vent/trach --> per pulm # Pneumonia due to COVID-19 virus --> per pulm rx -> sp remdesivir # Diabetes mellitus out of control --> hgb a1c goal <7 # Poor prognosis # Dvt ppx ivc filter once more stable Appreciate consultation and bowen RN Subjective Allergies: Coded Allergies: No Known Allergies (Unverified , 05/28/20) All Systems: reviewed and negative except above Subjective 06/10 nv, on vent, with ogt, on fentanyl and versed, plt stable 06/11 nv, vent adjusted is on ogt, meds reviewed 06/12 nv, vent, meds noted, labs noted, no bleeding, hgb 10.4 06/13 nv, is on vent, meds reviewed, no bleeding, cbc reviewed 06/14 nv, on vent, tachy, labs reviewed, gross hematuria, febrile overnight, abx 06/17 nv, on vent, labs noted, no major changes, feeling better overnight 06/18 nv, meds reviewed, labs noted, no major events, hgb 8.6 06/19 nv, remains intubated, with fluids, labs reviewed, meds noted 06/20 nv, intubated remains on restraints, meds noted as well, as labs 06/21 nv, remains on vent, on restraints, meds reviewed, labs noted 06/22: covering Dr. Del Cid no acute events 06/23 sedated, on vent, nv, intubated, meds reviewed, versed 06/24 nv, on vent, no night sweats, no bleeding, remains in icu 06/25 nv, on vent, icu, meds noted, no bleeding, comfortable 06/26 nv, on versed, icu, weaning parameters, labs noted 06/27 nv, overnight fighting vent, as per pulm fentanyl on board 06/28 nv, on vent, labs reviewed, as per pulm, meds noted 06/30 nv, icu, labs pending, is on fentanyl, versed, no new changes 07/01 nv, icu, is on vent, labs pending, no new changes per rn 07/02 nv, icu is on vent, labs noted, hgb is stable 07/03 nv, icu, is on vent, potential trrach when stable, cbc reviewed 07/04 icu, nv, labs are noted, stable for trach today dw Rn Dl 07/05 icu, nv, on vent, with ng and picc in place, labs noted, s/p trach 07/07 icu, nv, on tv, no bleeding, labs noted, meds reviewed 07/08 icu, nv, on tv, labs reviewed, meds noted, no bleeding 07/09 icu, nv, meds noted, no bleeding, blood transfusion was completed 07/10 icu, nv, labs ntoed, no bleeding, hgb improved, hgb 7.8 07/11 icu, nv, labs reviewed, hgb is improved, for ivcf if stabilizes Objective Objective Current Medications Medications (Trade) Dose Ordered Sig/Zelda Route PRN Reason Start Time Stop Time Status Last Admin Dose Admin Acetaminophen (Tylenol) 650 mg Q4H PRN NG Temp >100.5 06/29/20 10:15 07/29/20 10:14 07/08/20 18:26 Acetaminophen (Tylenol) 650 mg Q6H PRN NG Mild Pain (Pain Scale 1-3) 06/29/20 10:15 07/29/20 10:14 Chlorhexidine Gluconate (Inna-Hex 2%) 1 applic DAILY@2000 TOPIC 05/30/20 20:00 08/28/20 19:59 07/10/20 20:45 Dextrose (Dextrose 50%) 25 ml Q30M PRN IV Hypoglycemia 06/05/20 10:45 09/03/20 10:44 Dextrose (Dextrose 50%) 50 ml Q30M PRN IV Hypoglycemia 06/05/20 10:45 09/03/20 10:44 Fentanyl Citrate 250 ml @ 10.5 mls/hr Q24H IV 07/09/20 12:00 07/11/20 11:59 07/10/20 13:01 Furosemide (Lasix) 40 mg DAILY IV 06/22/20 09:00 07/22/20 08:59 07/10/20 08:41 Lansoprazole (Prevacid) 30 mg DAILY GT 07/10/20 09:00 08/09/20 08:59 07/10/20 08:41 Lidocaine HCl (Xylocaine 1% 30ml) 30 ml NOW PRN INJ Radiology Procedure 07/09/20 06:45 07/12/20 06:44 Midazolam HCl 200 ml @ 0 mls/hr Q24H PRN IV To Patient Comfort 07/10/20 12:00 07/17/20 11:59 07/11/20 00:23 Midodrine (Pro-Amatine) 10 mg Q8HR GT 06/30/20 14:00 09/12/20 13:59 07/11/20 06:21 Sodium Bicarbonate (Sodium Bicarbonate 4%) 1 ml NOW PRN IV Radiology Procedure 07/09/20 06:45 07/12/20 06:44 Vitamin D (Vitamin D) 5,000 unit DAILY GT 06/28/20 09:00 07/28/20 08:59 07/10/20 08:41 Last 24 Hour Vital Signs Date Time Temp Pulse Resp B/P (MAP) Pulse Ox O2 Delivery O2 Flow Rate FiO2 07/11/20 06:00 80 17 07/11/20 06:00 86 23 103/55 (71) 100 07/11/20 06:00 16 104/58 Mechanical Ventilator 65 07/11/20 05:00 19 103/55 Mechanical Ventilator 65 07/11/20 05:00 20 103/55 Non-Rebreather 65 07/11/20 05:00 83 23 103/55 (71) 100 07/11/20 04:00 78 07/11/20 04:00 20 96/55 Mechanical Ventilator 65 07/11/20 04:00 22 98/55 Mechanical Ventilator 65 07/11/20 04:00 65 07/11/20 04:00 Mechanical Ventilator Mechanical Ventilator 07/11/20 04:00 97.7 89 24 98/55 (69) 99 07/11/20 03:15 94 20 70 07/11/20 03:00 25 111/60 Mechanical Ventilator 65 07/11/20 03:00 25 111/60 Mechanical Ventilator 65 07/11/20 03:00 112 25 111/60 (77) 91 07/11/20 02:00 25 93/56 Mechanical Ventilator 65.0 65 07/11/20 02:00 23 93/53 Mechanical Ventilator 65 07/11/20 02:00 86 20 93/50 (64) 100 07/11/20 02:00 86 20 93/50 (64) 100 07/11/20 01:00 82 23 92/50 (64) 100 07/11/20 01:00 24 92/50 Mechanical Ventilator 65 07/11/20 01:00 20 92/50 Mechanical Ventilator 65 07/11/20 00:23 25 96/36 Mechanical Ventilator 65 07/11/20 00:00 65 07/11/20 00:00 98.5 77 22 96/36 (56) 100 07/11/20 00:00 80 07/11/20 00:00 Mechanical Ventilator Mechanical Ventilator 07/11/20 00:00 26 96/36 Mechanical Ventilator 65 07/10/20 23:15 78 23 70 07/10/20 23:00 75 17 92/52 (65) 100 07/10/20 23:00 20 92/80 Mechanical Ventilator 65 07/10/20 23:00 21 92/64 Mechanical Ventilator 65 07/10/20 22:00 82 20 89/55 (66) 100 07/10/20 22:00 19 92/52 Mechanical Ventilator 65 07/10/20 22:00 20 92/52 Mechanical Ventilator 65 07/10/20 21:00 101 22 91/62 (72) 98 07/10/20 21:00 18 94/56 Mechanical Ventilator 65 07/10/20 21:00 22 92/52 Mechanical Ventilator 65 07/10/20 21:00 92 07/10/20 20:00 Mechanical Ventilator Mechanical Ventilator 07/10/20 20:00 20 90/56 Mechanical Ventilator 65 07/10/20 20:00 20 94/56 Mechanical Ventilator 60 07/10/20 20:00 65 07/10/20 20:00 98.8 92 20 72/41 (51) 100 07/10/20 19:05 104 34 70 07/10/20 19:00 97 20 89/41 (57) 98 07/10/20 19:00 21 98/64 Mechanical Ventilator 60 07/10/20 19:00 18 90/56 Mechanical Ventilator 65 07/10/20 18:15 110 25 104/91 (95) 94 07/10/20 18:00 26 105/103 Mechanical Ventilator 65 07/10/20 18:00 26 150/103 Mechanical Ventilator 65 07/10/20 18:00 103 26 150/103 (119) 95 07/10/20 17:00 19 99/49 Mechanical Ventilator 65 07/10/20 17:00 19 99/49 Mechanical Ventilator 65 07/10/20 17:00 84 19 99/49 (66) 100 07/10/20 16:00 99.0 106 24 114/60 (78) 93 07/10/20 16:00 24 114/60 Mechanical Ventilator 70 07/10/20 16:00 24 114/60 Mechanical Ventilator 70 07/10/20 16:00 Mechanical Ventilator Mechanical Ventilator 07/10/20 16:00 65 07/10/20 15:50 90 07/10/20 15:36 65 07/10/20 15:00 102 20 108/67 (81) 99 07/10/20 15:00 20 108/67 Mechanical Ventilator 70 07/10/20 15:00 20 108/67 Mechanical Ventilator 70 07/10/20 14:56 89 20 70 07/10/20 14:00 97 24 113/90 (98) 100 07/10/20 14:00 24 113/90 Mechanical Ventilator 70 07/10/20 14:00 24 113/90 Mechanical Ventilator 70 07/10/20 13:01 19 99/69 Mechanical Ventilator 70 07/10/20 13:00 19 99/69 Mechanical Ventilator 70 07/10/20 13:00 18 96/51 Mechanical Ventilator 70 07/10/20 13:00 19 99/69 Mechanical Ventilator 70 07/10/20 13:00 99.4 89 18 96/51 (66) 100 07/10/20 12:58 99/69 (79) 07/10/20 12:00 94 21 104/63 (77) 99 07/10/20 12:00 Mechanical Ventilator Mechanical Ventilator 07/10/20 12:00 21 104/63 Mechanical Ventilator 70 07/10/20 12:00 21 104/63 Mechanical Ventilator 70 07/10/20 12:00 70 07/10/20 11:40 95 21 70 07/10/20 11:35 98 07/10/20 11:00 24 111/59 Mechanical Ventilator 70 07/10/20 11:00 24 111/59 Mechanical Ventilator 70 07/10/20 11:00 91 24 111/59 (76) 100 07/10/20 10:00 91 21 104/85 (91) 100 07/10/20 10:00 21 104/85 Mechanical Ventilator 70 07/10/20 10:00 21 104/85 Mechanical Ventilator 70 07/10/20 09:45 90 17 100/62 (75) 100 07/10/20 09:30 94 24 104/63 (77) 100 07/10/20 09:15 94 17 101/66 (78) 100 07/10/20 09:00 94 17 99/66 (77) 100 07/10/20 09:00 17 99/66 Mechanical Ventilator 70 07/10/20 09:00 17 99/66 Mechanical Ventilator 70 07/10/20 08:45 100 24 97/62 (74) 99 07/10/20 08:30 108 24 101/78 (86) 94 07/10/20 08:25 70 07/10/20 08:15 50 07/10/20 08:15 100 26 104/83 (90) 99 07/10/20 08:00 Mechanical Ventilator Mechanical Ventilator 07/10/20 08:00 98.7 95 18 99/57 (71) 100 07/10/20 08:00 18 99/57 Mechanical Ventilator 70 07/10/20 08:00 18 99/57 Mechanical Ventilator 70 07/10/20 07:39 77 20 70 07/10/20 07:30 78 07/10/20 07:00 19 99/73 Mechanical Ventilator 70 07/10/20 07:00 19 93/53 Mechanical Ventilator 70 07/10/20 07:00 80 16 99/53 (68) 100 07/10/20 06:00 16 90/48 Mechanical Ventilator 70 07/10/20 06:00 20 99/48 Mechanical Ventilator 70 07/10/20 06:00 82 17 101/69 (80) 100 07/10/20 05:00 87 14 96/54 (68) 99 07/10/20 05:00 20 106/54 Mechanical Ventilator 70.0 70 07/10/20 05:00 17 101/68 Mechanical Ventilator 70 07/10/20 04:00 99.0 87 10 91/53 (66) 99 07/10/20 04:00 Mechanical Ventilator Mechanical Ventilator 07/10/20 04:00 12 91/53 Mechanical Ventilator 70 07/10/20 04:00 16 91/50 Mechanical Ventilator 70 07/10/20 04:00 70 07/10/20 04:00 98 07/10/20 03:50 13 93/51 Mechanical Ventilator 70 07/10/20 03:00 100 20 100/51 (67) 99 07/10/20 03:00 16 90/56 Mechanical Ventilator 70 07/10/20 03:00 15 93/50 Mechanical Ventilator 70 07/10/20 02:21 89 17 70 07/10/20 02:00 88 17 112/76 (88) 98 07/10/20 02:00 20 111/60 Mechanical Ventilator 70 07/10/20 02:00 13 105/56 Mechanical Ventilator 70 07/10/20 01:00 19 112/61 Mechanical Ventilator 70 07/10/20 01:00 14 112/72 Mechanical Ventilator 70 07/10/20 01:00 93 18 115/80 (92) 99 07/10/20 00:00 Mechanical Ventilator Mechanical Ventilator 07/10/20 00:00 98 07/10/20 00:00 18 122/68 Mechanical Ventilator 70 07/10/20 00:00 20 122/68 Mechanical Ventilator 70 07/10/20 00:00 70 07/10/20 00:00 99.5 96 18 122/68 (86) 100 07/09/20 23:16 102 24 70 07/09/20 23:00 101 19 116/74 (88) 98 07/09/20 23:00 20 122/65 Mechanical Ventilator 70 07/09/20 23:00 20 122/68 70 07/09/20 22:00 103 23 110/80 (90) 95 07/09/20 22:00 21 93/69 Mechanical Ventilator 70 07/09/20 22:00 21 93/69 Mechanical Ventilator 70 07/09/20 21:00 Mechanical Ventilator Mechanical Ventilator 07/09/20 21:00 23 114/55 Mechanical Ventilator 70 07/09/20 21:00 23 111/65 Mechanical Ventilator 70 07/09/20 21:00 95 07/09/20 21:00 104 26 111/67 (82) 92 07/09/20 20:00 70 07/09/20 20:00 99.0 103 22 100/55 (70) 92 07/09/20 20:00 17 114/55 Mechanical Ventilator 70 07/09/20 20:00 22 112/60 Mechanical Ventilator 70 07/09/20 19:22 99 32 70 07/09/20 19:00 17 110/68 Mechanical Ventilator 70 07/09/20 19:00 17 110/68 Mechanical Ventilator 70 07/09/20 19:00 99 17 110/68 (82) 97 07/09/20 18:45 101 23 121/78 (92) 96 07/09/20 18:30 98 23 101/67 (78) 96 07/09/20 18:15 103 22 114/76 (89) 93 07/09/20 18:00 92 20 112/73 (86) 99 07/09/20 18:00 20 112/73 Mechanical Ventilator 70 07/09/20 18:00 20 112/73 Mechanical Ventilator 70 07/09/20 17:45 93 23 113/79 (90) 98 07/09/20 17:45 23 113/79 Mechanical Ventilator 70 07/09/20 17:30 106 25 126/76 (93) 92 07/09/20 17:30 25 126/76 Mechanical Ventilator 70 07/09/20 17:15 93 17 112/62 (79) 100 07/09/20 17:00 92 23 120/69 (86) 99 07/09/20 17:00 23 120/69 Mechanical Ventilator 70 07/09/20 17:00 23 120/69 Mechanical Ventilator 70 07/09/20 16:45 18 108/71 Mechanical Ventilator 70 07/09/20 16:29 21 109/59 Mechanical Ventilator 70 07/09/20 16:00 Mechanical Ventilator Mechanical Ventilator 07/09/20 16:00 95 07/09/20 16:00 99.1 102 23 104/78 (87) 95 07/09/20 16:00 70 07/09/20 16:00 23 104/78 Mechanical Ventilator 70 07/09/20 16:00 23 104/78 Mechanical Ventilator 70 07/09/20 15:00 92 20 105/63 (77) 98 07/09/20 15:00 20 105/63 Mechanical Ventilator 70 07/09/20 15:00 20 105/63 Mechanical Ventilator 70 07/09/20 14:45 94 20 106/61 (76) 98 07/09/20 14:30 95 18 112/65 (81) 95 07/09/20 14:15 99 24 109/68 (82) 97 07/09/20 14:00 16 125/67 Mechanical Ventilator 70 07/09/20 14:00 16 125/67 Mechanical Ventilator 70 07/09/20 14:00 91 16 125/67 (86) 98 07/09/20 13:45 19 119/66 Mechanical Ventilator 70 07/09/20 13:45 89 19 119/66 (83) 99 07/09/20 13:30 97 30 117/83 (94) 96 07/09/20 13:20 95 34 70 07/09/20 13:15 22 105/53 Mechanical Ventilator 70 07/09/20 13:15 95 22 105/53 (70) 95 07/09/20 13:00 92 22 106/54 (71) 99 07/09/20 13:00 22 106/54 Mechanical Ventilator 70 07/09/20 13:00 22 106/54 Mechanical Ventilator 70 07/09/20 12:45 93 24 103/69 (80) 97 07/09/20 12:45 24 103/69 Mechanical Ventilator 60 07/09/20 12:43 24 111/97 Mechanical Ventilator 60 07/09/20 12:30 84 21 111/97 (102) 99 07/09/20 12:15 85 18 107/68 (81) 98 07/09/20 12:00 Mechanical Ventilator Mechanical Ventilator 07/09/20 12:00 99.1 86 19 101/59 (73) 99 07/09/20 12:00 19 101/59 Mechanical Ventilator 60 07/09/20 12:00 19 101/59 Mechanical Ventilator 60 07/09/20 12:00 87 07/09/20 11:45 82 18 98/62 (74) 99 07/09/20 11:30 82 18 103/64 (77) 98 07/09/20 11:20 70 07/09/20 11:18 70 07/09/20 11:15 97 26 108/62 (77) 88 07/09/20 11:00 18 95/55 Mechanical Ventilator 60 07/09/20 11:00 18 95/55 Mechanical Ventilator 60 07/09/20 11:00 80 18 95/55 (68) 95 07/09/20 10:53 60 07/09/20 10:52 60 07/09/20 10:45 81 16 91/53 (66) 96 07/09/20 10:30 80 18 94/54 (67) 100 07/09/20 10:15 96 20 105/73 (84) 98 07/09/20 10:00 19 95/51 Mechanical Ventilator 80 07/09/20 10:00 19 95/51 Mechanical Ventilator 80 07/09/20 10:00 82 19 95/51 (66) 99 07/09/20 09:45 84 17 97/57 (70) 99 07/09/20 09:45 17 97/57 Mechanical Ventilator 80 07/09/20 09:30 91 22 102/66 (78) 99 07/09/20 09:30 22 102/66 Mechanical Ventilator 80 07/09/20 09:00 20 97/58 Mechanical Ventilator 80 07/09/20 09:00 20 97/58 Mechanical Ventilator 80 07/09/20 09:00 87 20 97/58 (71) 100 07/09/20 08:00 98.1 75 16 98/59 (72) 100 07/09/20 08:00 16 98/59 Mechanical Ventilator 80 07/09/20 08:00 16 98/59 Mechanical Ventilator 80 07/09/20 08:00 Mechanical Ventilator Mechanical Ventilator 07/09/20 08:00 80 07/09/20 07:45 75 07/09/20 07:40 84 18 80 07/09/20 07:00 74 17 99/50 (66) 100 07/09/20 07:00 17 99/50 Mechanical Ventilator 80 07/09/20 07:00 17 99/50 Mechanical Ventilator 80 Intake and Output 07/10/20 07/11/20 19:00 07:00 Intake Total 360 ml 280 ml Output Total 355 ml 1290 ml Balance 5 ml -1010 ml IV Total 360 ml 280 ml Output Urine Total 355 ml 1290 ml Labs Test 07/08/20 10:45 07/09/20 08:43 07/09/20 10:17 07/10/20 04:30 Arterial Blood pH 7.402 (7.350-7.450) 7.469 (7.350-7.450) Arterial Blood Partial Pressure CO2 81.4 mmHg (35.0-45.0) 57.3 mmHg (35.0-45.0) Arterial Blood Partial Pressure O2 75.7 mmHg (75.0-100.0) 104.2 mmHg (75.0-100.0) Arterial Blood HCO3 49.5 mmol/L (22.0-26.0) 40.7 mmol/L (22.0-26.0) Arterial Blood Oxygen Saturation 94.1 % (95-100) 97.3 % (95-100) Arterial Blood Base Excess 22.0 (-2-2) 15.1 (-2-2) Jeremiah Test Positive Positive White Blood Count 8.8 K/UL (4.8-10.8) 8.8 K/UL (4.8-10.8) Red Blood Count 2.80 M/UL (4.20-5.40) 2.75 M/UL (4.20-5.40) Hemoglobin 7.8 G/DL (12.0-16.0) 7.8 G/DL (12.0-16.0) Hematocrit 26.1 % (37.0-47.0) 25.4 % (37.0-47.0) Mean Corpuscular Volume 93 FL (80-99) 92 FL (80-99) Mean Corpuscular Hemoglobin 28.0 PG (27.0-31.0) 28.3 PG (27.0-31.0) Mean Corpuscular Hemoglobin Concent 29.9 G/DL (32.0-36.0) 30.7 G/DL (32.0-36.0) Red Cell Distribution Width 18.6 % (11.6-14.8) 17.7 % (11.6-14.8) Platelet Count 217 K/UL (150-450) 237 K/UL (150-450) Mean Platelet Volume 8.0 FL (6.5-10.1) 8.3 FL (6.5-10.1) Neutrophils (%) (Auto) % (45.0-75.0) % (45.0-75.0) Lymphocytes (%) (Auto) % (20.0-45.0) % (20.0-45.0) Monocytes (%) (Auto) % (1.0-10.0) % (1.0-10.0) Eosinophils (%) (Auto) % (0.0-3.0) % (0.0-3.0) Basophils (%) (Auto) % (0.0-2.0) % (0.0-2.0) Differential Total Cells Counted 100 Neutrophils % (Manual) 60 % (45-75) Lymphocytes % (Manual) 22 % (20-45) Monocytes % (Manual) 8 % (1-10) Eosinophils % (Manual) 10 % (0-3) Basophils % (Manual) 0 % (0-2) Band Neutrophils 0 % (0-8) Platelet Estimate Adequate Platelet Morphology Normal Hypochromasia 1+ Anisocytosis 1+ Stomatocytes 1+ Sodium Level 139 MMOL/L (136-145) Potassium Level 3.6 MMOL/L (3.5-5.1) Chloride Level 96 MMOL/L (98-107) Carbon Dioxide Level 42 MMOL/L (21-32) Anion Gap 1 mmol/L (5-15) Blood Urea Nitrogen 14 mg/dL (7-18) Creatinine 0.4 MG/DL (0.55-1.30) Estimat Glomerular Filtration Rate > 60 mL/min (>60) Glucose Level 87 MG/DL (74-106) Calcium Level 9.5 MG/DL (8.5-10.1) Total Bilirubin 1.9 MG/DL (0.2-1.0) Direct Bilirubin 0.5 MG/DL (0.0-0.3) Aspartate Amino Transf (AST/SGOT) 28 U/L (15-37) Alanine Aminotransferase (ALT/SGPT) 18 U/L (12-78) Alkaline Phosphatase 62 U/L (46-116) Total Protein 7.0 G/DL (6.4-8.2) Albumin 2.1 G/DL (3.4-5.0) Globulin 4.9 g/dL Albumin/Globulin Ratio 0.4 (1.0-2.7) Test 07/10/20 08:03 07/11/20 02:50 Arterial Blood pH 7.504 (7.350-7.450) Arterial Blood Partial Pressure CO2 54.5 mmHg (35.0-45.0) Arterial Blood Partial Pressure O2 135.3 mmHg (75.0-100.0) Arterial Blood HCO3 41.9 mmol/L (22.0-26.0) Arterial Blood Oxygen Saturation 98.7 % (95-100) Arterial Blood Base Excess 16.9 (-2-2) Jeremiah Test Positive White Blood Count 10.7 K/UL (4.8-10.8) Red Blood Count 3.18 M/UL (4.20-5.40) Hemoglobin 9.2 G/DL (12.0-16.0) Hematocrit 29.7 % (37.0-47.0) Mean Corpuscular Volume 93 FL (80-99) Mean Corpuscular Hemoglobin 29.0 PG (27.0-31.0) Mean Corpuscular Hemoglobin Concent 31.1 G/DL (32.0-36.0) Red Cell Distribution Width 17.9 % (11.6-14.8) Platelet Count 325 K/UL (150-450) Mean Platelet Volume 8.0 FL (6.5-10.1) Neutrophils (%) (Auto) 58.9 % (45.0-75.0) Lymphocytes (%) (Auto) 24.5 % (20.0-45.0) Monocytes (%) (Auto) 8.3 % (1.0-10.0) Eosinophils (%) (Auto) 7.3 % (0.0-3.0) Basophils (%) (Auto) 0.9 % (0.0-2.0) Sodium Level 139 MMOL/L (136-145) Potassium Level 3.7 MMOL/L (3.5-5.1) Chloride Level 95 MMOL/L (98-107) Carbon Dioxide Level 40 MMOL/L (21-32) Anion Gap 4 mmol/L (5-15) Blood Urea Nitrogen 9 mg/dL (7-18) Creatinine 0.4 MG/DL (0.55-1.30) Estimat Glomerular Filtration Rate > 60 mL/min (>60) Glucose Level 76 MG/DL (74-106) Calcium Level 9.7 MG/DL (8.5-10.1) Phosphorus Level 3.6 MG/DL (2.5-4.9) Magnesium Level 1.7 MG/DL (1.8-2.4) Total Bilirubin 1.5 MG/DL (0.2-1.0) Direct Bilirubin 0.3 MG/DL (0.0-0.3) Aspartate Amino Transf (AST/SGOT) 28 U/L (15-37) Alanine Aminotransferase (ALT/SGPT) 17 U/L (12-78) Alkaline Phosphatase 73 U/L (46-116) C-Reactive Protein, Quantitative 36.7 mg/dL (0.00-0.90) Pro-B-Type Natriuretic Peptide 454 pg/mL (0-125) Total Protein 8.0 G/DL (6.4-8.2) Albumin 2.4 G/DL (3.4-5.0) Globulin 5.6 g/dL Albumin/Globulin Ratio 0.4 (1.0-2.7) Height (Feet): 5 Height (Inches): 6.00 Weight (Pounds): 239 Objective GeNL: nv Pulm: vent/trach++ CV: rrr Abd: soft, nt, nd Ext: no cce Myron Condon MD Jul 11, 2020 06:54
--- NOTE | 2020-07-11 06:57 | NUR ---
CASE MANAGEMENT:REVIEW 07/11/20 SI: COVID PNEUMONIA POD #3...S/P TRACHEOSTOMY AND BRONCHOSCOPY 97.7 86 20 103/55 100% ON VENT SUPPORT W/65% FIO2 PEEP~7.0 H/H-9.2/29.7 CO2+40 CRP+36.7 IS:VERSED GTT FENTANYL GTT IV LASIX QD LOVENOX SQ QD IVF@50/HR MIDODRINE NG Q8HRS : ICU STATUS DCP: FROM HOME PLAN: NEEDS PEG PLACEMENT WILL NEED SUBACUTE PLACEMENT OR LTACH
--- NOTE | 2020-07-11 07:38 | NUR ---
NURSE HAND-OFF REPORT: Latest Vital Signs: Temperature 97.7 , Pulse 72 , B/P 105 /55 , Respiratory Rate 20 , O2 SAT 100 , Mechanical Ventilator, O2 Flow Rate . Vital Sign Comment: EKG Rhythm: Sinus Rhythm Rhythm change?: N Notified?: Babs EDWARDS MD Response: Latest Meyers Fall Score: 70 Fall Risk: High Risk Safety Measures: Call light Within Reach, Bed Alarm Zone 1, Side Rails Side Rails x2, Bed position Low and Locked. Fall Precautions: Yellow Socks Report given to rene garcia using sbar.
--- NOTE | 2020-07-11 08:00 | NUR ---
NURSE NOTES: Pt was assessed after receiving change of shift report from Soledad ELLINGTON. Sedated while on Fentanyl drip @100mcg/hr and Versed drip 10mg/hr to maintain RASS -2 light sedation. Trach to vent Shiley 8 XLT with vent settings AC15, VT600, Peep 7, FIO2 65% with O2Sat 100%. NSR on monitor technician, HR 96. NGT connected to low intermittent suction, draining light greenish liquid gastric secretions. Rectal tube draining liquid/soft brown stool. Lennon catheter 16F, draining dark jordyn urine. Central line right femoral triple lumen, patent, dressing intact, connected to Fentanyl/Versed drips. Pt is on pressure release mattress, HOB at 30degrees, bed locked, three side rails up. Will continue to monitor pt and follow plan of care per MD orders and protocol.
[2020-07-11] MEDS: Vitamin D 1000 units Tab GT SCH (09:14)
[2020-07-11] MEDS: Lansoprazole 15mg cap GT SCH (09:14)
--- NOTE | 2020-07-11 10:00 | NUR ---
NURSE NOTES: AM meds were administered. Oral care was done. Suctioned with minimal thin/secretions/output from trach. Repositioned for comfort. ABGs were done this AM. Dr. Nava at the nurse's station and informed of ABG resulted. RT notified to titrate FIO2 down from 65% as tolerated by pt per Dr Nava.
--- NOTE | 2020-07-11 10:39 | Pulmonology Progress Note ---
Subjective ROS Limited/Unobtainable: Yes Interval Events: S/p tracheostomy 07/04/20 Constitutional: Reports: fever, other - T=100 HEENT: Repors: no symptoms Respiratory: Reports: no symptoms Cardiovascular: Reports: no symptoms Gastrointestinal/Abdominal: Reports: no symptoms Genitourinary: Reports: no symptoms Allergies: Coded Allergies: No Known Allergies (Unverified , 05/28/20) All Systems: reviewed and negative except above Objective Last 24 Hour Vital Signs Date Time Temp Pulse Resp B/P (MAP) Pulse Ox O2 Delivery O2 Flow Rate FiO2 07/11/20 07:50 98 26 70 07/11/20 07:00 20 105/55 Mechanical Ventilator 65 07/11/20 07:00 20 105/55 Mechanical Ventilator 65 07/11/20 07:00 72 20 101/55 (70) 100 07/11/20 06:00 80 17 07/11/20 06:00 86 23 103/55 (71) 100 07/11/20 06:00 20 105/58 Mechanical Ventilator 65 07/11/20 06:00 16 104/58 Mechanical Ventilator 65 07/11/20 05:00 19 103/55 Mechanical Ventilator 65 07/11/20 05:00 20 103/55 Non-Rebreather 65 07/11/20 05:00 83 23 103/55 (71) 100 07/11/20 04:00 78 07/11/20 04:00 20 96/55 Mechanical Ventilator 65 07/11/20 04:00 22 98/55 Mechanical Ventilator 65 07/11/20 04:00 65 07/11/20 04:00 Mechanical Ventilator Mechanical Ventilator 07/11/20 04:00 97.7 89 24 98/55 (69) 99 07/11/20 03:15 94 20 70 07/11/20 03:00 25 111/60 Mechanical Ventilator 65 07/11/20 03:00 25 111/60 Mechanical Ventilator 65 07/11/20 03:00 112 25 111/60 (77) 91 07/11/20 02:00 25 93/56 Mechanical Ventilator 65.0 65 07/11/20 02:00 23 93/53 Mechanical Ventilator 65 07/11/20 02:00 86 20 93/50 (64) 100 07/11/20 02:00 86 20 93/50 (64) 100 07/11/20 01:00 82 23 92/50 (64) 100 07/11/20 01:00 24 92/50 Mechanical Ventilator 65 07/11/20 01:00 20 92/50 Mechanical Ventilator 65 07/11/20 00:23 25 96/36 Mechanical Ventilator 65 07/11/20 00:00 65 07/11/20 00:00 98.5 77 22 96/36 (56) 100 07/11/20 00:00 80 07/11/20 00:00 Mechanical Ventilator Mechanical Ventilator 07/11/20 00:00 26 96/36 Mechanical Ventilator 65 07/10/20 23:15 78 23 70 07/10/20 23:00 75 17 92/52 (65) 100 07/10/20 23:00 20 92/80 Mechanical Ventilator 65 07/10/20 23:00 21 92/64 Mechanical Ventilator 65 07/10/20 22:00 82 20 89/55 (66) 100 07/10/20 22:00 19 92/52 Mechanical Ventilator 65 07/10/20 22:00 20 92/52 Mechanical Ventilator 65 07/10/20 21:00 101 22 91/62 (72) 98 07/10/20 21:00 18 94/56 Mechanical Ventilator 65 07/10/20 21:00 22 92/52 Mechanical Ventilator 65 07/10/20 21:00 92 07/10/20 20:00 Mechanical Ventilator Mechanical Ventilator 07/10/20 20:00 20 90/56 Mechanical Ventilator 65 07/10/20 20:00 20 94/56 Mechanical Ventilator 60 07/10/20 20:00 65 07/10/20 20:00 98.8 92 20 72/41 (51) 100 07/10/20 19:05 104 34 70 07/10/20 19:00 97 20 89/41 (57) 98 07/10/20 19:00 21 98/64 Mechanical Ventilator 60 07/10/20 19:00 18 90/56 Mechanical Ventilator 65 07/10/20 18:15 110 25 104/91 (95) 94 07/10/20 18:00 26 105/103 Mechanical Ventilator 65 07/10/20 18:00 26 150/103 Mechanical Ventilator 65 07/10/20 18:00 103 26 150/103 (119) 95 07/10/20 17:00 19 99/49 Mechanical Ventilator 65 07/10/20 17:00 19 99/49 Mechanical Ventilator 65 07/10/20 17:00 84 19 99/49 (66) 100 07/10/20 16:00 99.0 106 24 114/60 (78) 93 07/10/20 16:00 24 114/60 Mechanical Ventilator 70 07/10/20 16:00 24 114/60 Mechanical Ventilator 70 07/10/20 16:00 Mechanical Ventilator Mechanical Ventilator 07/10/20 16:00 65 07/10/20 15:50 90 07/10/20 15:36 65 07/10/20 15:00 102 20 108/67 (81) 99 07/10/20 15:00 20 108/67 Mechanical Ventilator 70 07/10/20 15:00 20 108/67 Mechanical Ventilator 70 07/10/20 14:56 89 20 70 07/10/20 14:00 97 24 113/90 (98) 100 07/10/20 14:00 24 113/90 Mechanical Ventilator 70 07/10/20 14:00 24 113/90 Mechanical Ventilator 70 07/10/20 13:01 19 99/69 Mechanical Ventilator 70 07/10/20 13:00 19 99/69 Mechanical Ventilator 70 07/10/20 13:00 18 96/51 Mechanical Ventilator 70 07/10/20 13:00 19 99/69 Mechanical Ventilator 70 07/10/20 13:00 99.4 89 18 96/51 (66) 100 07/10/20 12:58 99/69 (79) 07/10/20 12:00 94 21 104/63 (77) 99 07/10/20 12:00 Mechanical Ventilator Mechanical Ventilator 07/10/20 12:00 21 104/63 Mechanical Ventilator 70 07/10/20 12:00 21 104/63 Mechanical Ventilator 70 07/10/20 12:00 70 07/10/20 11:40 95 21 70 07/10/20 11:35 98 07/10/20 11:00 24 111/59 Mechanical Ventilator 70 07/10/20 11:00 24 111/59 Mechanical Ventilator 70 07/10/20 11:00 91 24 111/59 (76) 100 Intake and Output 07/10/20 07/11/20 19:00 07:00 Intake Total 360 ml 340 ml Output Total 355 ml 1340 ml Balance 5 ml -1000 ml IV Total 360 ml 340 ml Output Urine Total 355 ml 1340 ml General Appearance: no acute distress HEENT: normocephalic, status post trach Respiratory: chest wall non-tender Cardiovascular: normal peripheral pulses Abdomen: normal bowel sounds Laboratory Tests 07/10/20 12:12: POC Whole Blood Glucose 90 07/10/20 18:26: POC Whole Blood Glucose 95 07/11/20 02:50: White Blood Count 10.7, Red Blood Count 3.18L, Hemoglobin 9.2L, Hematocrit 29.7L , Mean Corpuscular Volume 93, Mean Corpuscular Hemoglobin 29.0, Mean Corpuscular Hemoglobin Concent 31.1L, Red Cell Distribution Width 17.9H, Platelet Count 325, Mean Platelet Volume 8.0, Neutrophils (%) (Auto) 58.9, Lymphocytes (%) (Auto) 24.5, Monocytes (%) (Auto) 8.3, Eosinophils (%) (Auto) 7.3H, Basophils (%) (Auto) 0.9, Sodium Level 139, Potassium Level 3.7, Chloride Level 95L, Carbon Dioxide Level 40H, Anion Gap 4L, Blood Urea Nitrogen 9, Creatinine 0.4L, Estimat Glomerular Filtration Rate > 60, Glucose Level 76, Calcium Level 9.7, Phosphorus Level 3.6, Magnesium Level 1.7L, Total Bilirubin 1.5H, Direct Bilirubin 0.3, Aspartate Amino Transf (AST/SGOT) 28, Alanine Aminotransferase (ALT/SGPT) 17, Alkaline Phosphatase 73, C-Reactive Protein, Quantitative 36.7H, Pro-B-Type Natriuretic Peptide 454H, Total Protein 8.0, Albumin 2.4L, Globulin 5.6, Albumin/Globulin Ratio 0.4L 07/11/20 08:15: Arterial Blood pH 7.421, Arterial Blood Partial Pressure CO2 65.2*H, Arterial Blood Partial Pressure O2 64.5L, Arterial Blood HCO3 41.4*H, Arterial Blood Oxygen Saturation 91.2L, Arterial Blood Base Excess 14.7*H, Jeremiah Test Positive Current Medications Medications (Trade) Dose Ordered Sig/Zelda Route PRN Reason Start Time Stop Time Status Last Admin Dose Admin Acetaminophen (Tylenol) 650 mg Q4H PRN NG Temp >100.5 06/29/20 10:15 07/29/20 10:14 07/08/20 18:26 Acetaminophen (Tylenol) 650 mg Q6H PRN NG Mild Pain (Pain Scale 1-3) 06/29/20 10:15 07/29/20 10:14 Chlorhexidine Gluconate (Inna-Hex 2%) 1 applic DAILY@2000 TOPIC 05/30/20 20:00 08/28/20 19:59 07/10/20 20:45 Dextrose (Dextrose 50%) 25 ml Q30M PRN IV Hypoglycemia 06/05/20 10:45 09/03/20 10:44 Dextrose (Dextrose 50%) 50 ml Q30M PRN IV Hypoglycemia 06/05/20 10:45 09/03/20 10:44 Fentanyl Citrate 250 ml @ 10.5 mls/hr Q24H IV 07/09/20 12:00 07/11/20 11:59 07/10/20 13:01 Furosemide (Lasix) 40 mg DAILY IV 06/22/20 09:00 07/22/20 08:59 07/11/20 09:15 Lansoprazole (Prevacid) 30 mg DAILY GT 07/10/20 09:00 08/09/20 08:59 07/11/20 09:14 Lidocaine HCl (Xylocaine 1% 30ml) 30 ml NOW PRN INJ Radiology Procedure 07/09/20 06:45 07/12/20 06:44 Midazolam HCl 200 ml @ 0 mls/hr Q24H PRN IV To Patient Comfort 07/10/20 12:00 07/17/20 11:59 07/11/20 00:23 Midodrine (Pro-Amatine) 10 mg Q8HR GT 06/30/20 14:00 09/12/20 13:59 07/11/20 06:21 Sodium Bicarbonate (Sodium Bicarbonate 4%) 1 ml NOW PRN IV Radiology Procedure 07/09/20 06:45 07/12/20 06:44 Vitamin D (Vitamin D) 5,000 unit DAILY GT 06/28/20 09:00 07/28/20 08:59 07/11/20 09:14 Assessment/Plan Assessment/Plan 1. COVID-19 pneumonia -Intubated 05/28/20 - We will continue broad-spectrum antibiotics. -s/p solumedrol, Rocephin -Continue PEEP 6 ->7 - Peak airway pressures high; 38 - FiO2 100% -> 90 ->80->60 ->40 ->80 ->100 ->70 ->60; PEEP 7 -will continue OGT feeding -Continue sedation; Need to keep patient completely sedated. 2. Hyponatremia -Per primary MD 3. Elevated inflammatory markers - has high D dimer; Lovenox re-started 4. Decreased PEEP Continue weaning efforts S/p trach Off IV fluids Begin dc planning to subacute; will need to wean down O2 prior to transfer Javier Nava MD Jul 11, 2020 10:39
--- NOTE | 2020-07-11 11:01 | Surgery Progress Note ---
Surgery Progress Note Subjective Procedure Performed right femoral central venous line insertion Additional Comments Patient seen exam bedside. Trach doing okay. Slowly weaning vent. No nausea vomiting. Objective Last 24 Hour Vital Signs Date Time Temp Pulse Resp B/P (MAP) Pulse Ox O2 Delivery O2 Flow Rate FiO2 07/11/20 08:00 65 07/11/20 07:50 98 26 70 07/11/20 07:00 20 105/55 Mechanical Ventilator 65 07/11/20 07:00 20 105/55 Mechanical Ventilator 65 07/11/20 07:00 72 20 101/55 (70) 100 07/11/20 06:00 80 17 07/11/20 06:00 86 23 103/55 (71) 100 07/11/20 06:00 20 105/58 Mechanical Ventilator 65 07/11/20 06:00 16 104/58 Mechanical Ventilator 65 07/11/20 05:00 19 103/55 Mechanical Ventilator 65 07/11/20 05:00 20 103/55 Non-Rebreather 65 07/11/20 05:00 83 23 103/55 (71) 100 07/11/20 04:00 78 07/11/20 04:00 20 96/55 Mechanical Ventilator 65 07/11/20 04:00 22 98/55 Mechanical Ventilator 65 07/11/20 04:00 65 07/11/20 04:00 Mechanical Ventilator Mechanical Ventilator 07/11/20 04:00 97.7 89 24 98/55 (69) 99 07/11/20 03:15 94 20 70 07/11/20 03:00 25 111/60 Mechanical Ventilator 65 07/11/20 03:00 25 111/60 Mechanical Ventilator 65 07/11/20 03:00 112 25 111/60 (77) 91 07/11/20 02:00 25 93/56 Mechanical Ventilator 65.0 65 07/11/20 02:00 23 93/53 Mechanical Ventilator 65 07/11/20 02:00 86 20 93/50 (64) 100 07/11/20 02:00 86 20 93/50 (64) 100 07/11/20 01:00 82 23 92/50 (64) 100 07/11/20 01:00 24 92/50 Mechanical Ventilator 65 07/11/20 01:00 20 92/50 Mechanical Ventilator 65 07/11/20 00:23 25 96/36 Mechanical Ventilator 65 07/11/20 00:00 65 07/11/20 00:00 98.5 77 22 96/36 (56) 100 07/11/20 00:00 80 07/11/20 00:00 Mechanical Ventilator Mechanical Ventilator 07/11/20 00:00 26 96/36 Mechanical Ventilator 65 07/10/20 23:15 78 23 70 07/10/20 23:00 75 17 92/52 (65) 100 07/10/20 23:00 20 92/80 Mechanical Ventilator 65 07/10/20 23:00 21 92/64 Mechanical Ventilator 65 07/10/20 22:00 82 20 89/55 (66) 100 07/10/20 22:00 19 92/52 Mechanical Ventilator 65 07/10/20 22:00 20 92/52 Mechanical Ventilator 65 07/10/20 21:00 101 22 91/62 (72) 98 07/10/20 21:00 18 94/56 Mechanical Ventilator 65 07/10/20 21:00 22 92/52 Mechanical Ventilator 65 07/10/20 21:00 92 07/10/20 20:00 Mechanical Ventilator Mechanical Ventilator 07/10/20 20:00 20 90/56 Mechanical Ventilator 65 07/10/20 20:00 20 94/56 Mechanical Ventilator 60 07/10/20 20:00 65 07/10/20 20:00 98.8 92 20 72/41 (51) 100 07/10/20 19:05 104 34 70 07/10/20 19:00 97 20 89/41 (57) 98 07/10/20 19:00 21 98/64 Mechanical Ventilator 60 07/10/20 19:00 18 90/56 Mechanical Ventilator 65 07/10/20 18:15 110 25 104/91 (95) 94 07/10/20 18:00 26 105/103 Mechanical Ventilator 65 07/10/20 18:00 26 150/103 Mechanical Ventilator 65 07/10/20 18:00 103 26 150/103 (119) 95 07/10/20 17:00 19 99/49 Mechanical Ventilator 65 07/10/20 17:00 19 99/49 Mechanical Ventilator 65 07/10/20 17:00 84 19 99/49 (66) 100 07/10/20 16:00 99.0 106 24 114/60 (78) 93 07/10/20 16:00 24 114/60 Mechanical Ventilator 70 07/10/20 16:00 24 114/60 Mechanical Ventilator 70 07/10/20 16:00 Mechanical Ventilator Mechanical Ventilator 07/10/20 16:00 65 07/10/20 15:50 90 07/10/20 15:36 65 07/10/20 15:00 102 20 108/67 (81) 99 07/10/20 15:00 20 108/67 Mechanical Ventilator 70 07/10/20 15:00 20 108/67 Mechanical Ventilator 70 07/10/20 14:56 89 20 70 07/10/20 14:00 97 24 113/90 (98) 100 07/10/20 14:00 24 113/90 Mechanical Ventilator 70 07/10/20 14:00 24 113/90 Mechanical Ventilator 70 07/10/20 13:01 19 99/69 Mechanical Ventilator 70 07/10/20 13:00 19 99/69 Mechanical Ventilator 70 07/10/20 13:00 18 96/51 Mechanical Ventilator 70 07/10/20 13:00 19 99/69 Mechanical Ventilator 70 07/10/20 13:00 99.4 89 18 96/51 (66) 100 07/10/20 12:58 99/69 (79) 07/10/20 12:00 94 21 104/63 (77) 99 07/10/20 12:00 Mechanical Ventilator Mechanical Ventilator 07/10/20 12:00 21 104/63 Mechanical Ventilator 70 07/10/20 12:00 21 104/63 Mechanical Ventilator 70 07/10/20 12:00 70 07/10/20 11:40 95 21 70 07/10/20 11:35 98 I&O Intake and Output 07/10/20 07/11/20 19:00 07:00 Intake Total 360 ml 340 ml Output Total 355 ml 1340 ml Balance 5 ml -1000 ml IV Total 360 ml 340 ml Output Urine Total 355 ml 1340 ml Dressing: saturated Cardiovascular: RSR Respiratory: decreased breath sounds Abdomen: soft, non-tender, present bowel sounds Extremities: edema, no tenderness, no cyanosis, other Laboratory Tests Test 07/10/20 12:12 07/10/20 18:26 07/11/20 02:50 07/11/20 08:15 POC Whole Blood Glucose 90 MG/DL (74-106) 95 MG/DL (74-106) White Blood Count 10.7 K/UL (4.8-10.8) Red Blood Count 3.18 M/UL (4.20-5.40) L Hemoglobin 9.2 G/DL (12.0-16.0) L Hematocrit 29.7 % (37.0-47.0) L Mean Corpuscular Volume 93 FL (80-99) Mean Corpuscular Hemoglobin 29.0 PG (27.0-31.0) Mean Corpuscular Hemoglobin Concent 31.1 G/DL (32.0-36.0) L Red Cell Distribution Width 17.9 % (11.6-14.8) H Platelet Count 325 K/UL (150-450) Mean Platelet Volume 8.0 FL (6.5-10.1) Neutrophils (%) (Auto) 58.9 % (45.0-75.0) Lymphocytes (%) (Auto) 24.5 % (20.0-45.0) Monocytes (%) (Auto) 8.3 % (1.0-10.0) Eosinophils (%) (Auto) 7.3 % (0.0-3.0) H Basophils (%) (Auto) 0.9 % (0.0-2.0) Sodium Level 139 MMOL/L (136-145) Potassium Level 3.7 MMOL/L (3.5-5.1) Chloride Level 95 MMOL/L (98-107) L Carbon Dioxide Level 40 MMOL/L (21-32) H Anion Gap 4 mmol/L (5-15) L Blood Urea Nitrogen 9 mg/dL (7-18) Creatinine 0.4 MG/DL (0.55-1.30) L Estimat Glomerular Filtration Rate > 60 mL/min (>60) Glucose Level 76 MG/DL (74-106) Calcium Level 9.7 MG/DL (8.5-10.1) Phosphorus Level 3.6 MG/DL (2.5-4.9) Magnesium Level 1.7 MG/DL (1.8-2.4) L Total Bilirubin 1.5 MG/DL (0.2-1.0) H Direct Bilirubin 0.3 MG/DL (0.0-0.3) Aspartate Amino Transf (AST/SGOT) 28 U/L (15-37) Alanine Aminotransferase (ALT/SGPT) 17 U/L (12-78) Alkaline Phosphatase 73 U/L (46-116) C-Reactive Protein, Quantitative 36.7 mg/dL (0.00-0.90) H Pro-B-Type Natriuretic Peptide 454 pg/mL (0-125) H Total Protein 8.0 G/DL (6.4-8.2) Albumin 2.4 G/DL (3.4-5.0) L Globulin 5.6 g/dL Albumin/Globulin Ratio 0.4 (1.0-2.7) L Arterial Blood pH 7.421 (7.350-7.450) Arterial Blood Partial Pressure CO2 65.2 mmHg (35.0-45.0) *H Arterial Blood Partial Pressure O2 64.5 mmHg (75.0-100.0) L Arterial Blood HCO3 41.4 mmol/L (22.0-26.0) *H Arterial Blood Oxygen Saturation 91.2 % (95-100) L Arterial Blood Base Excess 14.7 (-2-2) *H Jeremiah Test Positive Plan Problems: (1) Respiratory distress (2) Respiratory failure Assessment & Plan: 50-year-old female Covid positive respiratory insufficiency intubated on ventilatory support declining. Leukocytosis increase oxygen requirement. Vent settings per pulmonology reviewed identified and agree. Unfortunately further surgical invention at this time is not appropriate as patient is not a candidate and her current condition. Prognosis overall guarded. Tracheostomy can be considered in the future if recovering or shows improvement and requires unable to be weaned from ventilator support. Currently okay for nutritional optimization with NG tube. Will need significant monitoring for decubitus formation given patient's size and condition. Okay for air mattress tolerated. Turn every 2 hours as tolerated. Patient is otherwise critically ill and blood pressure labile. Will need to monitor closely.Bilateral infiltrates are again demonstrated. Stable tube and line positions. will need trach will need to wean vent first (3) Hypoxia (4) Pneumonia due to COVID-19 virus Assessment & Plan: ++ as per pulm and ID (5) Diabetes mellitus out of control Assessment & Plan: DAILY ESTIMATED NEEDS: Needs based on Critical care, obesity 11-14kcal/kg actual body wt (140kg) kcals/kg 2661-4665 total kcals 1.5-2.0g prot/kg IBW (64.5kg) g protein/kg 96-129 g total protein 25-30ml/kg abw (83kg) mL/kg 0855-5981 total fluid mLs NUTRITION DIAGNOSIS: Swallowing difficulty R/T respiratory failure as evidenced by pt orally intubated and sedated, on OGT feeds. CURRENT TF: Vital 1.2 goal of 60ml/hr ENTERAL NUTRITION RECOMMENDATIONS: Vital AF 1.2 @ 60ml/hr x 24 hrs to provide 1440ml, 1728kcal, 108g prot, 1168ml free water * Maintain current critical care and carb controlled TF formula of Vital AF * TF @ goal meeds 100% est kcal/prot needs * HOB over 30 degrees/ water flush per MD TF may be lowered to 55ml/hr for improved BG control while maintaining Kcal and pro needs. ADDITIONAL RECOMMENDATIONS: * Calibrated bedscale wt * Monitor Propofol rate, need for TF adjustment-> now off * Monitor BGs closely : now improved, on novolog q 6rs + NISS * Monitor lytes- K elevated, monitor need for TF change * Rec bowel regimen- now w/ rectal tube . Az Devine Jul 11, 2020 11:01
--- NOTE | 2020-07-11 11:26 | Nephrology Progress Note ---
Assessment/Plan Problem List: (1) DEVENDRA (acute kidney injury) (2) Morbid obesity (3) Diabetes mellitus out of control (4) Pneumonia due to COVID-19 virus (5) Respiratory failure Assessment Acute renal failure Obstructive uropathy, clogged Lennon Respiratory failure COVID-19 pneumonia Morbid obesity Plan July 11: Remains full code. On ventilator. FiO2 down to 65%. Renal parameters stable. Low magnesium addressed. Continue her current management. July 10: Full code. On ventilator. FiO2 70%. Hemoglobin mid sevens. Renal parameters stable. Continue per consultants. July 09: Labs reviewed. Renal parameters stable. FiO2 80% unchanged. Continue per pulmonary. July 08: Labs reviewed. Renal parameters and electrolytes stable. ABG suggestive of high PCO2. At this time patient is on FiO2 of 80%. Continue per pulmonary. Continue to monitor renal parameters. July 07: No CHEM panel drawn today. More potassium given. Continue to monitor renal parameters. Continue per consultants. Discussed with RAKEL Veras. July 06: Low potassium addressed. Albumin bolus for low BP given. Patient remains full code. Continue to monitor electrolytes and renal parameters. Cont inue per consultants. Hemoglobin low today, transfusion per [employer]. July 05: Trach to vent. FiO2 80%. Renal parameters stable. PCO2 remains high at 44. Continue to monitor renal parameters. July 04: Patient now trach. Full code. Labs reviewed. Renal parameters stable. Low magnesium addressed. July 03: Intubated. Full code. Labs reviewed. Abnormal electrolytes addressed. Continue per consultants. Overall status unchanged. July 02: Remains intubated. Remains full code. Remains on FiO2 of 70%. Labs reviewed. Abnormal electrolytes addressed. Continue per pulmonary. July 01: Remains on 70% FiO2. Full code. Intubated on ventilator. Retaining CO2. Discussed with RN. Will do ABG today. Albumin bolus given. 1 dose of Diamox given. June 30: Status quo. Labs reviewed. Abnormal electrolytes addressed. Remains full code. Remains on ventilator. Magnesium sulfate 4 gram IVPB given. June 29: Full code. Intubated on ventilator. Labs reviewed. Stable from renal standpoint of view. Continue per consultants. June 28: Remains full code. Remains intubated on ventilator. Labs reviewed. Vitamin D supplement ordered. Continue to monitor renal parameters. Continue per consultants. June 27: Remains full code. Intubated on ventilator. Labs reviewed. Abnormal electrolyte addressed. Continue to monitor renal parameters and electrolytes. Continue per consultants. June 26: Labs reviewed. Remains full code. Remains intubated. Back on NGT feeding. Continue to monitor renal parameters. June 25: Labs reviewed. Renal parameters stable. Remains full code. Due to positional status patient could not be fed via NG tube. Starting TPN? Is being entertained. Continue per consultants. June 24: Labs reviewed. Renal parameters stable. Remains full code. Remains intubated on ventilator. Continue per consultants. June 23: Labs reviewed. Renal parameters stable. Discussed with RN. Abnormal electrolyte addressed. Remains full code. Remains on ventilator. Continue per consultants. June 22: Labs reviewed. Low potassium addressed. Discussed with RAKEL Moran. Patient full code. Remains on ventilator. Continue to monitor renal parameters. June 21. Labs reviewed. Abnormal electrolyte addressed. Full code. Remains on ventilator. Medication list reviewed. Continue per pulmonary management. DC IV fluid, resume Lasix daily, check chest x-ray. June 20: Labs reviewed. Abnormal electrolytes. Patient remains full code. Continue per consultants. Noted and addressed June 19: Labs reviewed. Abnormal electrolytes noted and addressed. Remains intubated on ventilator. Remains full code. June 18: Labs reviewed. Remains intubated on ventilator. Full code. Abnormal electrolyte addressed. Continue as is. June 17: Labs reviewed. Abnormal electrolytes addressed. Patient remains full code and intubated on ventilator. Continue per consultants. Renal parameters are within normal limits. June 16: Labs reviewed. Potassium chloride replaced. Remains full code. Remains intubated on ventilator. Continue per consultants. Continue to monitor renal parameters. June 15: Labs reviewed. Serum creatinine 1. Stable from renal standpoint to view. Continue per consultants. June 14: Labs reviewed. Full code. Serum creatinine of 3.5 down to 1.4. Low potassium addressed. Continue per current treatment plan. Continue to monitor renal parameters. Midodrine started. Albumin bolus given. Previously: DC Lasix drip Increase Protonix dose Monitor renal parameters, electrolytes Per orders Subjective ROS Limited/Unobtainable: Yes Objective Objective Last 24 Hour Vital Signs Date Time Temp Pulse Resp B/P (MAP) Pulse Ox O2 Delivery O2 Flow Rate FiO2 07/11/20 10:00 85 26 102/54 (70) 100 07/11/20 09:00 99 20 109/60 (76) 96 07/11/20 08:00 65 07/11/20 08:00 Mechanical Ventilator Mechanical Ventilator 07/11/20 08:00 98.0 93 30 107/56 (73) 100 07/11/20 07:50 98 26 70 07/11/20 07:00 20 105/55 Mechanical Ventilator 65 07/11/20 07:00 20 105/55 Mechanical Ventilator 65 07/11/20 07:00 72 20 101/55 (70) 100 07/11/20 06:00 80 17 07/11/20 06:00 86 23 103/55 (71) 100 07/11/20 06:00 20 105/58 Mechanical Ventilator 65 07/11/20 06:00 16 104/58 Mechanical Ventilator 65 07/11/20 05:00 19 103/55 Mechanical Ventilator 65 07/11/20 05:00 20 103/55 Non-Rebreather 65 07/11/20 05:00 83 23 103/55 (71) 100 07/11/20 04:00 78 07/11/20 04:00 20 96/55 Mechanical Ventilator 65 07/11/20 04:00 22 98/55 Mechanical Ventilator 65 07/11/20 04:00 65 07/11/20 04:00 Mechanical Ventilator Mechanical Ventilator 07/11/20 04:00 97.7 89 24 98/55 (69) 99 07/11/20 03:15 94 20 70 07/11/20 03:00 25 111/60 Mechanical Ventilator 65 07/11/20 03:00 25 111/60 Mechanical Ventilator 65 07/11/20 03:00 112 25 111/60 (77) 91 07/11/20 02:00 25 93/56 Mechanical Ventilator 65.0 65 07/11/20 02:00 23 93/53 Mechanical Ventilator 65 07/11/20 02:00 86 20 93/50 (64) 100 07/11/20 02:00 86 20 93/50 (64) 100 07/11/20 01:00 82 23 92/50 (64) 100 07/11/20 01:00 24 92/50 Mechanical Ventilator 65 07/11/20 01:00 20 92/50 Mechanical Ventilator 65 07/11/20 00:23 25 96/36 Mechanical Ventilator 65 07/11/20 00:00 65 07/11/20 00:00 98.5 77 22 96/36 (56) 100 07/11/20 00:00 80 07/11/20 00:00 Mechanical Ventilator Mechanical Ventilator 07/11/20 00:00 26 96/36 Mechanical Ventilator 65 07/10/20 23:15 78 23 70 07/10/20 23:00 75 17 92/52 (65) 100 07/10/20 23:00 20 92/80 Mechanical Ventilator 65 07/10/20 23:00 21 92/64 Mechanical Ventilator 65 07/10/20 22:00 82 20 89/55 (66) 100 07/10/20 22:00 19 92/52 Mechanical Ventilator 65 07/10/20 22:00 20 92/52 Mechanical Ventilator 65 07/10/20 21:00 101 22 91/62 (72) 98 07/10/20 21:00 18 94/56 Mechanical Ventilator 65 07/10/20 21:00 22 92/52 Mechanical Ventilator 65 07/10/20 21:00 92 07/10/20 20:00 Mechanical Ventilator Mechanical Ventilator 07/10/20 20:00 20 90/56 Mechanical Ventilator 65 07/10/20 20:00 20 94/56 Mechanical Ventilator 60 07/10/20 20:00 65 07/10/20 20:00 98.8 92 20 72/41 (51) 100 07/10/20 19:05 104 34 70 07/10/20 19:00 97 20 89/41 (57) 98 07/10/20 19:00 21 98/64 Mechanical Ventilator 60 07/10/20 19:00 18 90/56 Mechanical Ventilator 65 07/10/20 18:15 110 25 104/91 (95) 94 07/10/20 18:00 26 105/103 Mechanical Ventilator 65 07/10/20 18:00 26 150/103 Mechanical Ventilator 65 07/10/20 18:00 103 26 150/103 (119) 95 07/10/20 17:00 19 99/49 Mechanical Ventilator 65 07/10/20 17:00 19 99/49 Mechanical Ventilator 65 07/10/20 17:00 84 19 99/49 (66) 100 07/10/20 16:00 99.0 106 24 114/60 (78) 93 07/10/20 16:00 24 114/60 Mechanical Ventilator 70 07/10/20 16:00 24 114/60 Mechanical Ventilator 70 07/10/20 16:00 Mechanical Ventilator Mechanical Ventilator 07/10/20 16:00 65 07/10/20 15:50 90 07/10/20 15:36 65 07/10/20 15:00 102 20 108/67 (81) 99 07/10/20 15:00 20 108/67 Mechanical Ventilator 70 07/10/20 15:00 20 108/67 Mechanical Ventilator 70 07/10/20 14:56 89 20 70 07/10/20 14:00 97 24 113/90 (98) 100 07/10/20 14:00 24 113/90 Mechanical Ventilator 70 07/10/20 14:00 24 113/90 Mechanical Ventilator 70 07/10/20 13:01 19 99/69 Mechanical Ventilator 70 07/10/20 13:00 19 99/69 Mechanical Ventilator 70 07/10/20 13:00 18 96/51 Mechanical Ventilator 70 07/10/20 13:00 19 99/69 Mechanical Ventilator 70 07/10/20 13:00 99.4 89 18 96/51 (66) 100 07/10/20 12:58 99/69 (79) 07/10/20 12:00 94 21 104/63 (77) 99 07/10/20 12:00 Mechanical Ventilator Mechanical Ventilator 07/10/20 12:00 21 104/63 Mechanical Ventilator 70 07/10/20 12:00 21 104/63 Mechanical Ventilator 70 07/10/20 12:00 70 07/10/20 11:40 95 21 70 07/10/20 11:35 98 Intake and Output 07/10/20 07/11/20 19:00 07:00 Intake Total 360 ml 340 ml Output Total 355 ml 1340 ml Balance 5 ml -1000 ml IV Total 360 ml 340 ml Output Urine Total 355 ml 1340 ml Current Medications Medications (Trade) Dose Ordered Sig/Zelda Route PRN Reason Start Time Stop Time Status Last Admin Dose Admin Acetaminophen (Tylenol) 650 mg Q4H PRN NG Temp >100.5 06/29/20 10:15 07/29/20 10:14 07/08/20 18:26 Acetaminophen (Tylenol) 650 mg Q6H PRN NG Mild Pain (Pain Scale 1-3) 06/29/20 10:15 07/29/20 10:14 Chlorhexidine Gluconate (Inna-Hex 2%) 1 applic DAILY@2000 TOPIC 05/30/20 20:00 08/28/20 19:59 07/10/20 20:45 Dextrose (Dextrose 50%) 25 ml Q30M PRN IV Hypoglycemia 06/05/20 10:45 09/03/20 10:44 Dextrose (Dextrose 50%) 50 ml Q30M PRN IV Hypoglycemia 06/05/20 10:45 09/03/20 10:44 Fentanyl Citrate 250 ml @ 10.5 mls/hr Q24H IV 07/11/20 12:00 07/13/20 11:59 UNV Furosemide (Lasix) 40 mg DAILY IV 06/22/20 09:00 07/22/20 08:59 07/11/20 09:15 Lansoprazole (Prevacid) 30 mg DAILY GT 07/10/20 09:00 08/09/20 08:59 07/11/20 09:14 Lidocaine HCl (Xylocaine 1% 30ml) 30 ml NOW PRN INJ Radiology Procedure 07/09/20 06:45 07/12/20 06:44 Magnesium Sulfate 100 ml @ 100 mls/hr Q1H IVPB 07/11/20 11:30 07/11/20 13:29 UNV Midazolam HCl 200 ml @ 0 mls/hr Q24H PRN IV To Patient Comfort 07/10/20 12:00 07/17/20 11:59 07/11/20 00:23 Midodrine (Pro-Amatine) 10 mg Q8HR GT 06/30/20 14:00 09/12/20 13:59 07/11/20 06:21 Sodium Bicarbonate (Sodium Bicarbonate 4%) 1 ml NOW PRN IV Radiology Procedure 07/09/20 06:45 07/12/20 06:44 Vitamin D (Vitamin D) 5,000 unit DAILY GT 06/28/20 09:00 07/28/20 08:59 07/11/20 09:14 Laboratory Tests 07/10/20 12:12: POC Whole Blood Glucose 90 07/10/20 18:26: POC Whole Blood Glucose 95 07/11/20 02:50: White Blood Count 10.7, Red Blood Count 3.18L, Hemoglobin 9.2L, Hematocrit 29.7L , Mean Corpuscular Volume 93, Mean Corpuscular Hemoglobin 29.0, Mean Corpuscular Hemoglobin Concent 31.1L, Red Cell Distribution Width 17.9H, Platelet Count 325, Mean Platelet Volume 8.0, Neutrophils (%) (Auto) 58.9, Lymphocytes (%) (Auto) 24.5, Monocytes (%) (Auto) 8.3, Eosinophils (%) (Auto) 7.3H, Basophils (%) (Auto) 0.9, Sodium Level 139, Potassium Level 3.7, Chloride Level 95L, Carbon Dioxide Level 40H, Anion Gap 4L, Blood Urea Nitrogen 9, Creatinine 0.4L, Estimat Glomerular Filtration Rate > 60, Glucose Level 76, Calcium Level 9.7, Phosphorus Level 3.6, Magnesium Level 1.7L, Total Bilirubin 1.5H, Direct Bilirubin 0.3, Aspartate Amino Transf (AST/SGOT) 28, Alanine Aminotransferase (ALT/SGPT) 17, Alkaline Phosphatase 73, C-Reactive Protein, Quantitative 36.7H, Pro-B-Type Natriuretic Peptide 454H, Total Protein 8.0, Albumin 2.4L, Globulin 5.6, Albumin/Globulin Ratio 0.4L 07/11/20 08:15: Arterial Blood pH 7.421, Arterial Blood Partial Pressure CO2 65.2*H, Arterial Blood Partial Pressure O2 64.5L, Arterial Blood HCO3 41.4*H, Arterial Blood Oxygen Saturation 91.2L, Arterial Blood Base Excess 14.7*H, Jeremiah Test Positive Height (Feet): 5 Height (Inches): 6.00 Weight (Pounds): 239 General Appearance: no apparent distress EENT: other - Trach to vent Cardiovascular: tachycardia Respiratory/Chest: decreased breath sounds Abdomen: distended Rigo Tyler MD Jul 11, 2020 11:26
--- NOTE | 2020-07-11 12:00 | NUR ---
NURSE NOTES: New Versed bag was started to replace current empty bag. 2gm of Mag being infused per Dr. Tyler's order to replace Mag=1.7 level from this AM labs. Pt was repositioned for comfort. Oral care done. Minimal thin secretions from trach. VS remain stable while maintained on Versed+Fentanyl drips for RASS -2 light sedation. AFebrile while maintained on cooling blanket.
--- NOTE | 2020-07-11 12:04 | Infectious Diseases Prog Note ---
Assessment/Plan Assessment/Plan A 1. COVID19 pneumonia 2. Hypoxic respiratory failure 3. Morbid obesity 4. DM type with hyperglycemia 5. Thrombocytopenia 6. leukocytosis resolved 7. Serratia pneumonia treated 8. Anemia 9. VDRF 10. postoperative fever P 1. Finished remdesivir course 2. Finished steroid course 3. Waiting for GT placement Subjective ROS Limited/Unobtainable: Yes Allergies: Coded Allergies: No Known Allergies (Unverified , 05/28/20) Objective Last 24 Hour Vital Signs Date Time Temp Pulse Resp B/P (MAP) Pulse Ox O2 Delivery O2 Flow Rate FiO2 07/11/20 11:45 84 07/11/20 11:39 26 102/70 Mechanical Ventilator 50 07/11/20 11:00 86 28 106/53 (70) 99 07/11/20 10:00 85 26 102/54 (70) 100 07/11/20 10:00 23 106/53 Mechanical Ventilator 65 07/11/20 09:00 23 102/54 Mechanical Ventilator 65 07/11/20 09:00 99 20 109/60 (76) 96 07/11/20 08:00 72 07/11/20 08:00 65 07/11/20 08:00 Mechanical Ventilator Mechanical Ventilator 07/11/20 08:00 87 07/11/20 08:00 22 109/60 Mechanical Ventilator 65 07/11/20 08:00 98.0 93 30 107/56 (73) 100 07/11/20 07:50 98 26 70 07/11/20 07:00 20 105/55 Mechanical Ventilator 65 07/11/20 07:00 20 105/55 Mechanical Ventilator 65 07/11/20 07:00 72 20 101/55 (70) 100 07/11/20 06:00 80 17 07/11/20 06:00 86 23 103/55 (71) 100 07/11/20 06:00 20 105/58 Mechanical Ventilator 65 07/11/20 06:00 16 104/58 Mechanical Ventilator 65 07/11/20 05:00 19 103/55 Mechanical Ventilator 65 07/11/20 05:00 20 103/55 Non-Rebreather 65 07/11/20 05:00 83 23 103/55 (71) 100 07/11/20 04:00 78 07/11/20 04:00 20 96/55 Mechanical Ventilator 65 07/11/20 04:00 22 98/55 Mechanical Ventilator 65 07/11/20 04:00 65 07/11/20 04:00 Mechanical Ventilator Mechanical Ventilator 07/11/20 04:00 97.7 89 24 98/55 (69) 99 07/11/20 03:15 94 20 70 07/11/20 03:00 25 111/60 Mechanical Ventilator 65 07/11/20 03:00 25 111/60 Mechanical Ventilator 65 07/11/20 03:00 112 25 111/60 (77) 91 07/11/20 02:00 25 93/56 Mechanical Ventilator 65.0 65 07/11/20 02:00 23 93/53 Mechanical Ventilator 65 07/11/20 02:00 86 20 93/50 (64) 100 07/11/20 02:00 86 20 93/50 (64) 100 07/11/20 01:00 82 23 92/50 (64) 100 07/11/20 01:00 24 92/50 Mechanical Ventilator 65 07/11/20 01:00 20 92/50 Mechanical Ventilator 65 07/11/20 00:23 25 96/36 Mechanical Ventilator 65 07/11/20 00:00 65 07/11/20 00:00 98.5 77 22 96/36 (56) 100 07/11/20 00:00 80 07/11/20 00:00 Mechanical Ventilator Mechanical Ventilator 07/11/20 00:00 26 96/36 Mechanical Ventilator 65 07/10/20 23:15 78 23 70 07/10/20 23:00 75 17 92/52 (65) 100 07/10/20 23:00 20 92/80 Mechanical Ventilator 65 07/10/20 23:00 21 92/64 Mechanical Ventilator 65 07/10/20 22:00 82 20 89/55 (66) 100 07/10/20 22:00 19 92/52 Mechanical Ventilator 65 07/10/20 22:00 20 92/52 Mechanical Ventilator 65 07/10/20 21:00 101 22 91/62 (72) 98 07/10/20 21:00 18 94/56 Mechanical Ventilator 65 07/10/20 21:00 22 92/52 Mechanical Ventilator 65 07/10/20 21:00 92 07/10/20 20:00 Mechanical Ventilator Mechanical Ventilator 07/10/20 20:00 20 90/56 Mechanical Ventilator 65 07/10/20 20:00 20 94/56 Mechanical Ventilator 60 07/10/20 20:00 65 07/10/20 20:00 98.8 92 20 72/41 (51) 100 07/10/20 19:05 104 34 70 07/10/20 19:00 97 20 89/41 (57) 98 07/10/20 19:00 21 98/64 Mechanical Ventilator 60 07/10/20 19:00 18 90/56 Mechanical Ventilator 65 07/10/20 18:15 110 25 104/91 (95) 94 07/10/20 18:00 26 105/103 Mechanical Ventilator 65 07/10/20 18:00 26 150/103 Mechanical Ventilator 65 07/10/20 18:00 103 26 150/103 (119) 95 07/10/20 17:00 19 99/49 Mechanical Ventilator 65 07/10/20 17:00 19 99/49 Mechanical Ventilator 65 07/10/20 17:00 84 19 99/49 (66) 100 07/10/20 16:00 99.0 106 24 114/60 (78) 93 07/10/20 16:00 24 114/60 Mechanical Ventilator 70 07/10/20 16:00 24 114/60 Mechanical Ventilator 70 07/10/20 16:00 Mechanical Ventilator Mechanical Ventilator 07/10/20 16:00 65 07/10/20 15:50 90 07/10/20 15:36 65 07/10/20 15:00 102 20 108/67 (81) 99 07/10/20 15:00 20 108/67 Mechanical Ventilator 70 07/10/20 15:00 20 108/67 Mechanical Ventilator 70 07/10/20 14:56 89 20 70 07/10/20 14:00 97 24 113/90 (98) 100 07/10/20 14:00 24 113/90 Mechanical Ventilator 70 07/10/20 14:00 24 113/90 Mechanical Ventilator 70 07/10/20 13:01 19 99/69 Mechanical Ventilator 70 07/10/20 13:00 19 99/69 Mechanical Ventilator 70 07/10/20 13:00 18 96/51 Mechanical Ventilator 70 07/10/20 13:00 19 99/69 Mechanical Ventilator 70 07/10/20 13:00 99.4 89 18 96/51 (66) 100 07/10/20 12:58 99/69 (79) Height (Feet): 5 Height (Inches): 6.00 Weight (Pounds): 239 HEENT: status post trach Respiratory/Chest: rhonchi - bilaterally, other - on ventilator, FIO2=50% Cardiovascular: normal rate, other - R femoral line Abdomen: soft, non tender, other - NG & rectal tubes Extremities: other - edema Neurologic/Psychiatric: other - sedated Laboratory Tests Test 07/10/20 12:12 07/10/20 18:26 07/11/20 02:50 07/11/20 08:15 POC Whole Blood Glucose 90 MG/DL (74-106) 95 MG/DL (74-106) White Blood Count 10.7 K/UL (4.8-10.8) Red Blood Count 3.18 M/UL (4.20-5.40) L Hemoglobin 9.2 G/DL (12.0-16.0) L Hematocrit 29.7 % (37.0-47.0) L Mean Corpuscular Volume 93 FL (80-99) Mean Corpuscular Hemoglobin 29.0 PG (27.0-31.0) Mean Corpuscular Hemoglobin Concent 31.1 G/DL (32.0-36.0) L Red Cell Distribution Width 17.9 % (11.6-14.8) H Platelet Count 325 K/UL (150-450) Mean Platelet Volume 8.0 FL (6.5-10.1) Neutrophils (%) (Auto) 58.9 % (45.0-75.0) Lymphocytes (%) (Auto) 24.5 % (20.0-45.0) Monocytes (%) (Auto) 8.3 % (1.0-10.0) Eosinophils (%) (Auto) 7.3 % (0.0-3.0) H Basophils (%) (Auto) 0.9 % (0.0-2.0) Sodium Level 139 MMOL/L (136-145) Potassium Level 3.7 MMOL/L (3.5-5.1) Chloride Level 95 MMOL/L (98-107) L Carbon Dioxide Level 40 MMOL/L (21-32) H Anion Gap 4 mmol/L (5-15) L Blood Urea Nitrogen 9 mg/dL (7-18) Creatinine 0.4 MG/DL (0.55-1.30) L Estimat Glomerular Filtration Rate > 60 mL/min (>60) Glucose Level 76 MG/DL (74-106) Calcium Level 9.7 MG/DL (8.5-10.1) Phosphorus Level 3.6 MG/DL (2.5-4.9) Magnesium Level 1.7 MG/DL (1.8-2.4) L Total Bilirubin 1.5 MG/DL (0.2-1.0) H Direct Bilirubin 0.3 MG/DL (0.0-0.3) Aspartate Amino Transf (AST/SGOT) 28 U/L (15-37) Alanine Aminotransferase (ALT/SGPT) 17 U/L (12-78) Alkaline Phosphatase 73 U/L (46-116) C-Reactive Protein, Quantitative 36.7 mg/dL (0.00-0.90) H Pro-B-Type Natriuretic Peptide 454 pg/mL (0-125) H Total Protein 8.0 G/DL (6.4-8.2) Albumin 2.4 G/DL (3.4-5.0) L Globulin 5.6 g/dL Albumin/Globulin Ratio 0.4 (1.0-2.7) L Arterial Blood pH 7.421 (7.350-7.450) Arterial Blood Partial Pressure CO2 65.2 mmHg (35.0-45.0) *H Arterial Blood Partial Pressure O2 64.5 mmHg (75.0-100.0) L Arterial Blood HCO3 41.4 mmol/L (22.0-26.0) *H Arterial Blood Oxygen Saturation 91.2 % (95-100) L Arterial Blood Base Excess 14.7 (-2-2) *H Jeremiah Test Positive Current Medications Medications (Trade) Dose Ordered Sig/Zelda Route PRN Reason Start Time Stop Time Status Last Admin Dose Admin Acetaminophen (Tylenol) 650 mg Q4H PRN NG Temp >100.5 06/29/20 10:15 07/29/20 10:14 07/08/20 18:26 Acetaminophen (Tylenol) 650 mg Q6H PRN NG Mild Pain (Pain Scale 1-3) 06/29/20 10:15 07/29/20 10:14 Chlorhexidine Gluconate (Inna-Hex 2%) 1 applic DAILY@2000 TOPIC 05/30/20 20:00 08/28/20 19:59 07/10/20 20:45 Dextrose (Dextrose 50%) 25 ml Q30M PRN IV Hypoglycemia 06/05/20 10:45 09/03/20 10:44 Dextrose (Dextrose 50%) 50 ml Q30M PRN IV Hypoglycemia 06/05/20 10:45 09/03/20 10:44 Fentanyl Citrate 250 ml @ 0 mls/hr Q24H IV 07/11/20 12:00 07/13/20 11:59 Furosemide (Lasix) 40 mg DAILY IV 06/22/20 09:00 07/22/20 08:59 07/11/20 09:15 Lansoprazole (Prevacid) 30 mg DAILY GT 07/10/20 09:00 08/09/20 08:59 07/11/20 09:14 Lidocaine HCl (Xylocaine 1% 30ml) 30 ml NOW PRN INJ Radiology Procedure 07/09/20 06:45 07/12/20 06:44 Magnesium Sulfate 100 ml @ 100 mls/hr Q1H IVPB 07/11/20 12:00 07/11/20 13:59 07/11/20 11:30 Midazolam HCl 200 ml @ 0 mls/hr Q24H PRN IV To Patient Comfort 07/10/20 12:00 07/17/20 11:59 07/11/20 11:39 Midodrine (Pro-Amatine) 10 mg Q8HR GT 06/30/20 14:00 09/12/20 13:59 07/11/20 06:21 Sodium Bicarbonate (Sodium Bicarbonate 4%) 1 ml NOW PRN IV Radiology Procedure 07/09/20 06:45 07/12/20 06:44 Vitamin D (Vitamin D) 5,000 unit DAILY GT 06/28/20 09:00 07/28/20 08:59 07/11/20 09:14 Colt Arana MD Jul 11, 2020 12:04
--- NOTE | 2020-07-11 13:20 | General Progress Note ---
Subjective Constitutional: Reports: weakness Allergies: Coded Allergies: No Known Allergies (Unverified , 05/28/20) All Systems: reviewed and negative except above Subjective trach vent ng in icu Objective Last 24 Hour Vital Signs Date Time Temp Pulse Resp B/P (MAP) Pulse Ox O2 Delivery O2 Flow Rate FiO2 07/11/20 12:00 50 07/11/20 12:00 98.1 81 23 100/53 (69) 99 07/11/20 12:00 23 106/55 Mechanical Ventilator 50 07/11/20 12:00 23 106/55 Mechanical Ventilator 50 07/11/20 12:00 Mechanical Ventilator Mechanical Ventilator 07/11/20 11:45 84 07/11/20 11:39 26 102/70 Mechanical Ventilator 50 07/11/20 11:15 78 22 50 07/11/20 11:00 23 106/55 Mechanical Ventilator 65 07/11/20 11:00 86 28 106/53 (70) 99 07/11/20 10:00 85 26 102/54 (70) 100 07/11/20 10:00 23 106/53 Mechanical Ventilator 65 07/11/20 10:00 23 106/53 Mechanical Ventilator 65 07/11/20 09:00 23 102/54 Mechanical Ventilator 65 07/11/20 09:00 23 102/54 Mechanical Ventilator 65 07/11/20 09:00 99 20 109/60 (76) 96 07/11/20 08:00 72 07/11/20 08:00 65 07/11/20 08:00 Mechanical Ventilator Mechanical Ventilator 07/11/20 08:00 87 07/11/20 08:00 22 109/60 Mechanical Ventilator 65 07/11/20 08:00 22 109/60 Mechanical Ventilator 65 07/11/20 08:00 98.0 93 30 107/56 (73) 100 07/11/20 07:50 98 26 70 07/11/20 07:00 20 105/55 Mechanical Ventilator 65 07/11/20 07:00 20 105/55 Mechanical Ventilator 65 07/11/20 07:00 72 20 101/55 (70) 100 07/11/20 06:00 80 17 07/11/20 06:00 86 23 103/55 (71) 100 07/11/20 06:00 20 105/58 Mechanical Ventilator 65 07/11/20 06:00 16 104/58 Mechanical Ventilator 65 07/11/20 05:00 19 103/55 Mechanical Ventilator 65 07/11/20 05:00 20 103/55 Non-Rebreather 65 07/11/20 05:00 83 23 103/55 (71) 100 07/11/20 04:00 78 07/11/20 04:00 20 96/55 Mechanical Ventilator 65 07/11/20 04:00 22 98/55 Mechanical Ventilator 65 07/11/20 04:00 65 07/11/20 04:00 Mechanical Ventilator Mechanical Ventilator 07/11/20 04:00 97.7 89 24 98/55 (69) 99 07/11/20 03:15 94 20 70 07/11/20 03:00 25 111/60 Mechanical Ventilator 65 07/11/20 03:00 25 111/60 Mechanical Ventilator 65 07/11/20 03:00 112 25 111/60 (77) 91 07/11/20 02:00 25 93/56 Mechanical Ventilator 65.0 65 07/11/20 02:00 23 93/53 Mechanical Ventilator 65 07/11/20 02:00 86 20 93/50 (64) 100 07/11/20 02:00 86 20 93/50 (64) 100 07/11/20 01:00 82 23 92/50 (64) 100 07/11/20 01:00 24 92/50 Mechanical Ventilator 65 07/11/20 01:00 20 92/50 Mechanical Ventilator 65 07/11/20 00:23 25 96/36 Mechanical Ventilator 65 07/11/20 00:00 65 07/11/20 00:00 98.5 77 22 96/36 (56) 100 07/11/20 00:00 80 07/11/20 00:00 Mechanical Ventilator Mechanical Ventilator 07/11/20 00:00 26 96/36 Mechanical Ventilator 65 07/10/20 23:15 78 23 70 07/10/20 23:00 75 17 92/52 (65) 100 07/10/20 23:00 20 92/80 Mechanical Ventilator 65 07/10/20 23:00 21 92/64 Mechanical Ventilator 65 07/10/20 22:00 82 20 89/55 (66) 100 07/10/20 22:00 19 92/52 Mechanical Ventilator 65 07/10/20 22:00 20 92/52 Mechanical Ventilator 65 07/10/20 21:00 101 22 91/62 (72) 98 07/10/20 21:00 18 94/56 Mechanical Ventilator 65 07/10/20 21:00 22 92/52 Mechanical Ventilator 65 07/10/20 21:00 92 07/10/20 20:00 Mechanical Ventilator Mechanical Ventilator 07/10/20 20:00 20 90/56 Mechanical Ventilator 65 07/10/20 20:00 20 94/56 Mechanical Ventilator 60 07/10/20 20:00 65 07/10/20 20:00 98.8 92 20 72/41 (51) 100 07/10/20 19:05 104 34 70 07/10/20 19:00 97 20 89/41 (57) 98 07/10/20 19:00 21 98/64 Mechanical Ventilator 60 07/10/20 19:00 18 90/56 Mechanical Ventilator 65 07/10/20 18:15 110 25 104/91 (95) 94 07/10/20 18:00 26 105/103 Mechanical Ventilator 65 07/10/20 18:00 26 150/103 Mechanical Ventilator 65 07/10/20 18:00 103 26 150/103 (119) 95 07/10/20 17:00 19 99/49 Mechanical Ventilator 65 07/10/20 17:00 19 99/49 Mechanical Ventilator 65 07/10/20 17:00 84 19 99/49 (66) 100 07/10/20 16:00 99.0 106 24 114/60 (78) 93 07/10/20 16:00 24 114/60 Mechanical Ventilator 70 07/10/20 16:00 24 114/60 Mechanical Ventilator 70 07/10/20 16:00 Mechanical Ventilator Mechanical Ventilator 07/10/20 16:00 65 07/10/20 15:50 90 07/10/20 15:36 65 07/10/20 15:00 102 20 108/67 (81) 99 07/10/20 15:00 20 108/67 Mechanical Ventilator 70 07/10/20 15:00 20 108/67 Mechanical Ventilator 70 07/10/20 14:56 89 20 70 07/10/20 14:00 97 24 113/90 (98) 100 07/10/20 14:00 24 113/90 Mechanical Ventilator 70 07/10/20 14:00 24 113/90 Mechanical Ventilator 70 Intake and Output 07/10/20 07/11/20 19:00 07:00 Intake Total 360 ml 340 ml Output Total 355 ml 1340 ml Balance 5 ml -1000 ml IV Total 360 ml 340 ml Output Urine Total 355 ml 1340 ml Laboratory Tests 07/10/20 18:26: POC Whole Blood Glucose 95 07/11/20 02:50: White Blood Count 10.7, Red Blood Count 3.18L, Hemoglobin 9.2L, Hematocrit 29.7L , Mean Corpuscular Volume 93, Mean Corpuscular Hemoglobin 29.0, Mean Corpuscular Hemoglobin Concent 31.1L, Red Cell Distribution Width 17.9H, Platelet Count 325, Mean Platelet Volume 8.0, Neutrophils (%) (Auto) 58.9, Lymphocytes (%) (Auto) 24.5, Monocytes (%) (Auto) 8.3, Eosinophils (%) (Auto) 7.3H, Basophils (%) (Auto) 0.9, Sodium Level 139, Potassium Level 3.7, Chloride Level 95L, Carbon Dioxide Level 40H, Anion Gap 4L, Blood Urea Nitrogen 9, Creatinine 0.4L, Estimat Glomerular Filtration Rate > 60, Glucose Level 76, Calcium Level 9.7, Phosphorus Level 3.6, Magnesium Level 1.7L, Total Bilirubin 1.5H, Direct Bilirubin 0.3, Aspartate Amino Transf (AST/SGOT) 28, Alanine Aminotransferase (ALT/SGPT) 17, Alkaline Phosphatase 73, C-Reactive Protein, Quantitative 36.7H, Pro-B-Type Natriuretic Peptide 454H, Total Protein 8.0, Albumin 2.4L, Globulin 5.6, Albumin/Globulin Ratio 0.4L 07/11/20 08:15: Arterial Blood pH 7.421, Arterial Blood Partial Pressure CO2 65.2*H, Arterial Blood Partial Pressure O2 64.5L, Arterial Blood HCO3 41.4*H, Arterial Blood Oxygen Saturation 91.2L, Arterial Blood Base Excess 14.7*H, Jeremiah Test Positive Height (Feet): 5 Height (Inches): 6.00 Weight (Pounds): 239 General Appearance: lethargic EENT: normal ENT inspection Neck: normal alignment Cardiovascular: normal peripheral pulses, normal rate, regular rhythm Respiratory/Chest: chest wall non-tender, lungs clear, normal breath sounds Abdomen: normal bowel sounds, non tender, soft Extremities: normal inspection Edema: no edema noted Arm (L), no edema noted Arm (R), no edema noted Leg (L), no edema noted Leg (R), no edema noted Pedal (L), no edema noted Pedal (R), no edema noted Generalized Neurologic: motor weakness Skin: normal pigmentation, warm/dry Assessment/Plan Problem List: (1) Hypoxia ICD Codes: R09.02 - Hypoxemia SNOMED: 075267241 (2) Respiratory failure ICD Codes: J96.90 - Respiratory failure, unspecified, unspecified whether with hypoxia or hypercapnia SNOMED: 745555377 (3) Respiratory distress ICD Codes: R06.03 - Acute respiratory distress; J12.82 - Pneumonia due to coronavirus disease 2019 SNOMED: 625635270 (4) Pneumonia due to COVID-19 virus ICD Codes: U07.1 - COVID-19; J12.82 - Pneumonia due to coronavirus disease 2019 SNOMED: 113195456754991179 Status: unchanged Assessment/Plan: vent abx id pulm f/u cbc bmp am Tank Del Cid DO Jul 11, 2020 13:20
[2020-07-11] MEDS: fentaNYL 2500mcg/NS 250ml 250 ML IV SCH (13:26)
--- NOTE | 2020-07-11 13:30 | NUR ---
NURSE NOTES: New Fentanyl bag was started to replace currently empty bag, continuing same rate to maintain -2 light sedation. FiO2 titrated down to 50%, O2Sat maintains 92%.
--- NOTE | 2020-07-11 14:30 | NUR ---
NURSE NOTES: Pt's family contacted the nurse's station and was updated on pt's current status.
--- NOTE | 2020-07-11 18:00 | NUR ---
NURSE NOTES: Pt was cleaned and repositioned. VS remain stable while maintained on Versed+Fentanyl drips for RASS -2 light sedation.
[2020-07-11] MEDS ORDERED: NS 275ml ONE (18:16)
[2020-07-11] MEDS ORDERED: Sterile Water Irrig 1000ml IRRIG ONE (18:16)
[2020-07-11] MEDS ORDERED: D5 1/2NS 1000ml IV ONE (18:16)
--- NOTE | 2020-07-11 19:30 | NUR ---
NURSE HAND-OFF REPORT: Latest Vital Signs: Temperature 97.9 , Pulse 85 , B/P 101 /60 , Respiratory Rate 25 , O2 SAT 100, Trach to vent Shiley 8 XLT, AC 15, VT600, Peep 7, FIo2 50%. Vital Sign Comment: Maintained on Versed+Fentanyl drips for RASS -2 light sedation. EKG Rhythm: Sinus Rhythm Rhythm change?: N Notified?: Babs EDWARDS MD Response: Latest Meyers Fall Score: 70 Fall Risk: High Risk Safety Measures: Call light Within Reach, Bed Alarm Zone 1, Side Rails Side Rails x2, Bed position Low and Locked. Fall Precautions: Yellow Socks Report given to Soledad ELLINGTON. Endorsed plan of care.
--- NOTE | 2020-07-11 19:55 | NUR ---
NURSE NOTES: received report from khai gracia pt sedated fent drip and versed drip with -2RASS TRACH-VENT O2 TIZ022% no acute resp distress noted npo ngt -suction iv site good dressing julian and intact hr 100-105 STACHY REPOSITION AND SUCTION
[2020-07-11] MEDS: Dyna-Hex 2% Top Sol 2oz TOPIC SCH (20:00)
--- NOTE | 2020-07-11 22:00 | NUR ---
NURSE NOTES: reposition and suction condition un change
[2020-07-12] VITALS (25 sets, daily range): BP systolic 86–128; BP diastolic 49–76
--- NOTE | 2020-07-12 | NUR ---
NURSE NOTES: bs 121 no coverage
--- NOTE | 2020-07-12 | NUR ---
NURSE HAND-OFF REPORT: Latest Vital Signs: Temperature 98.6 , Pulse 104 , B/P 108 /53 , Respiratory Rate 24 , O2 SAT 96 , Mechanical Ventilator, O2 Flow Rate . Vital Sign Comment: EKG Rhythm: Sinus Tachycardia Rhythm change?: N Notified?: Babs EDWARDS MD Response: Latest Meyers Fall Score: 70 Fall Risk: High Risk Safety Measures: Call light Within Reach, Bed Alarm Zone 1, Side Rails Side Rails x2, Bed position Low and Locked. Fall Precautions: Yellow Socks Report given to .
--- NOTE | 2020-07-12 04:00 | NUR ---
NURSE NOTES: complete bed bath oral care care done
[2020-07-12 05:30] LABS: BASOPHILS % (AUTO) 1.1 % (0.0-2.0); EOSINOPHILS % (AUTO) 3.3 % (0.0-3.0); HEMATOCRIT 29.5 % (37.0-47.0); LYMPHOCYTES % (AUTO) 14.7 % (20.0-45.0); MEAN CORPUSCULAR VOLUME 92 FL (80-99); MONOCYTES % (AUTO) 7.7 % (1.0-10.0); NEUTROPHILS % (AUTO) 73.2 % (45.0-75.0); PLATELET COUNT 344 K/UL (150-450); RED CELL DISTRIBUTION WIDTH 17.1 % (11.6-14.8); WHITE BLOOD COUNT 12.6 K/UL (4.8-10.8)
[2020-07-12 05:53] LABS: ANION GAP 8 mmol/L (5-15); BLOOD UREA NITROGEN 7 mg/dL (7-18); CALCIUM 9.7 MG/DL (8.5-10.1); CARBON DIOXIDE 38 MMOL/L (21-32); CHLORIDE 91 MMOL/L (98-107); CREATININE 0.4 MG/DL (0.55-1.30); POTASSIUM 3.4 MMOL/L (3.5-5.1); SODIUM 137 MMOL/L (136-145)
--- NOTE | 2020-07-12 06:00 | NUR ---
NURSE NOTES: bs 110 no coverage
[2020-07-12] MEDS: Midodrine 10mg tab GT SCH ×3 (06:23→21:33)
--- NOTE | 2020-07-12 06:42 | NUR ---
CASE MANAGEMENT:REVIEW 07/12/20 SI: COVID PNEUMONIA POD #4...S/P TRACHEOSTOMY AND BRONCHOSCOPY 98.5 118 35 116/76 90% ON VENT SUPPORT W/45% FIO2 PEEP~7.0 WBC+12.6 CO2+38 IS:VERSED GTT FENTANYL GTT IV LASIX QD LOVENOX SQ QD IVF@50/HR MIDODRINE NG Q8HRS : ICU STATUS DCP: FROM HOME PLAN: NEEDS PEG PLACEMENT WILL NEED SUBACUTE PLACEMENT OR LTACH
--- NOTE | 2020-07-12 07:20 | NUR ---
RESPIRATORY NOTE: PT received on AC/VC: 15, 600 45%,+7. At this time. FiO2 was increased to 60% due to SPO2 being 78%. RN notified. Alarms are on and audible. Vent circuit is secure and out of the way. Airway is secure and patent. No s/s of respiratory distress noted at this time. Will continue to closely monitor.
--- NOTE | 2020-07-12 07:29 | NUR ---
NURSE HAND-OFF REPORT: Latest Vital Signs: Temperature 98.5 , Pulse 116 , B/P 124 /59 , Respiratory Rate 36 , O2 SAT 76 , Mechanical Ventilator, O2 Flow Rate . Vital Sign Comment: EKG Rhythm: Sinus Tachycardia Rhythm change?: N Notified?: Babs EDWARDS MD Response: Latest Meyers Fall Score: 70 Fall Risk: High Risk Safety Measures: Call light Within Reach, Bed Alarm Zone 1, Side Rails Side Rails x2, Bed position Low and Locked. Fall Precautions: Yellow Socks Report given to khai gracia using sbar.
--- NOTE | 2020-07-12 08:00 | NUR ---
NURSE NOTES: Pt was assessed after receiving change of shift report from Soledad ELLINGTON. Sedated while on Fentanyl drip @100mcg/hr and Versed drip 10mg/hr to maintain RASS -2 light sedation. Trach to vent Shiley 8 XLT with vent settings AC15, VT600, Peep 7, FIO2 50% with O2Sat 100%. NSR on speech and language tutor, HR 96. NGT connected to low intermittent suction, draining light greenish liquid gastric secretions. Rectal tube draining liquid/soft brown stool. Lennon catheter 18F, draining dark jordyn urine. Central line right femoral triple lumen, patent, dressing intact, connected to Fentanyl/Versed drips. Pt is on pressure release mattress, HOB at 30degrees, bed locked, three side rails up. Will continue to monitor pt and follow plan of care per MD orders and protocol.
[2020-07-12] MEDS: Vitamin D 1000 units Tab GT SCH (08:52)
[2020-07-12] MEDS: Lansoprazole 15mg cap GT SCH (08:52)
[2020-07-12] MEDS: Versed 100mg/NS 200ml 200 ML IV PRN ×2 (08:55→19:01)
--- NOTE | 2020-07-12 09:04 | General Progress Note ---
Subjective Constitutional: Reports: weakness Allergies: Coded Allergies: No Known Allergies (Unverified , 05/28/20) All Systems: reviewed and negative except above Subjective trach vent ng in icu Objective Last 24 Hour Vital Signs Date Time Temp Pulse Resp B/P (MAP) Pulse Ox O2 Delivery O2 Flow Rate FiO2 07/12/20 08:55 36 124/56 Mechanical Ventilator 60 07/12/20 07:20 116 36 60 07/12/20 07:00 122 33 124/59 (80) 76 07/12/20 07:00 30 124/50 Mechanical Ventilator 45 07/12/20 07:00 30 124/56 Mechanical Ventilator 45 07/12/20 06:30 80 17 07/12/20 06:00 30 116/76 Mechanical Ventilator 45.0 45 07/12/20 06:00 33 116/76 Mechanical Ventilator 45 07/12/20 06:00 118 35 116/76 (89) 90 07/12/20 05:00 20 124/56 Mechanical Ventilator 45 07/12/20 05:00 30 124/64 Mechanical Ventilator 45 07/12/20 05:00 117 34 124/64 (84) 85 07/12/20 05:00 117 34 124/64 (84) 85 07/12/20 04:00 55 07/12/20 04:00 Mechanical Ventilator Mechanical Ventilator 07/12/20 04:00 102 07/12/20 04:00 26 128/68 Mechanical Ventilator 45 07/12/20 04:00 29 113/62 Mechanical Ventilator 45 07/12/20 04:00 98.5 104 30 113/62 (79) 100 07/12/20 03:07 103 30 45 07/12/20 03:00 24 128/64 Mechanical Ventilator 50 07/12/20 03:00 29 113/62 45 07/12/20 03:00 109 29 128/68 (88) 96 07/12/20 02:00 109 23 119/70 (86) 100 07/12/20 02:00 23 119/70 Mechanical Ventilator 55 07/12/20 02:00 28 119/70 Mechanical Ventilator 55 07/12/20 01:00 28 104/64 Mechanical Ventilator 55 07/12/20 01:00 20 104/64 Mechanical Ventilator 55 07/12/20 01:00 91 26 104/64 (77) 100 07/12/20 00:00 98.6 104 24 108/53 (71) 96 07/12/20 00:00 55 07/12/20 00:00 104 24 108/53 (71) 96 07/12/20 00:00 28 108/58 Mechanical Ventilator 55 07/12/20 00:00 26 108/53 Mechanical Ventilator 55 07/12/20 00:00 100 07/12/20 00:00 Mechanical Ventilator Mechanical Ventilator 07/11/20 23:15 83 22 50 07/11/20 23:00 109 24 115/74 (88) 92 07/11/20 23:00 28 115/71 Mechanical Ventilator 55 07/11/20 23:00 26 115/75 Mechanical Ventilator 55 07/11/20 22:10 24 115/74 Mechanical Ventilator 55 07/11/20 22:10 20 125/87 Mechanical Ventilator 55 07/11/20 22:00 20 120/80 Mechanical Ventilator 55 07/11/20 22:00 28 123/87 Mechanical Ventilator 26 07/11/20 22:00 111 24 125/87 (100) 90 07/11/20 21:00 94 29 110/60 (77) 100 07/11/20 21:00 23 125/87 Mechanical Ventilator 50 07/11/20 21:00 26 110/60 Mechanical Ventilator 55 07/11/20 20:00 Mechanical Ventilator Mechanical Ventilator 07/11/20 20:00 98.8 108 24 123/73 (90) 90 07/11/20 20:00 28 110/60 Mechanical Ventilator 55 07/11/20 20:00 26 123/73 Mechanical Ventilator 55 07/11/20 20:00 55 07/11/20 20:00 102 07/11/20 19:30 84 25 50 07/11/20 19:00 85 25 101/60 (74) 100 07/11/20 19:00 25 101/60 Mechanical Ventilator 55 21 19:00 25 101/60 Mechanical Ventilator 55 07/11/20 18:00 113 23 120/71 (87) 83 07/11/20 18:00 24 120/71 Mechanical Ventilator 50 07/11/ 18:00 24 120/71 Mechanical Ventilator 55 07/11/ 17:00 24 102/61 Mechanical Ventilator 60 07/11/21 17:00 24 102/61 Mechanical Ventilator 60 07/11/20 17:00 80 22 102/61 (75) 100 07/11/20 16:00 97.9 91 29 104/53 (70) 98 07/11/20 16:00 55 07/11/20 16:00 Mechanical Ventilator Mechanical Ventilator 07/11/20 16:00 26 104/53 Mechanical Ventilator 60 07/11/20 16:00 26 104/53 Mechanical Ventilator 60 07/11/20 16:00 80 07/11/20 15:00 26 100/60 Mechanical Ventilator 60 07/11/20 15:00 26 100/60 Mechanical Ventilator 60 07/11/20 15:00 90 24 106/58 (74) 100 07/11/20 14:45 93 24 50 07/11/20 14:00 80 21 92/56 (68) 100 07/11/20 14:00 23 91/52 Mechanical Ventilator 60 07/11/20 14:00 23 91/52 Mechanical Ventilator 60 07/11/20 13:26 23 106/55 Mechanical Ventilator 65.0 50 07/11/20 13:25 23 91/52 60 07/11/20 13:00 80 23 91/52 (65) 100 07/11/20 13:00 23 116/78 Mechanical Ventilator 60 07/11/20 13:00 26 116/78 Mechanical Ventilator 60 07/11/20 12:00 50 07/11/20 12:00 98.1 81 23 100/53 (69) 99 07/11/20 12:00 23 106/55 Mechanical Ventilator 50 07/11/20 12:00 23 106/55 Mechanical Ventilator 50 07/11/20 12:00 Mechanical Ventilator Mechanical Ventilator 07/11/20 11:45 84 07/11/20 11:39 26 102/70 Mechanical Ventilator 50 07/11/20 11:15 78 22 50 07/11/20 11:00 23 106/55 Mechanical Ventilator 65 07/11/20 11:00 86 28 106/53 (70) 99 07/11/20 10:00 85 26 102/54 (70) 100 07/11/20 10:00 23 106/53 Mechanical Ventilator 65 07/11/20 10:00 23 106/53 Mechanical Ventilator 65 Intake and Output 07/11/20 07/12/20 19:00 07:00 Intake Total 530 ml 370 ml Output Total 560 ml 600 ml Balance -30 ml -230 ml IV Total 530 ml 370 ml Output Urine Total 560 ml 600 ml # Bowel Movements 20 Laboratory Tests 2/19/21 03:30: White Blood Count 12.6H, Red Blood Count 3.20L, Hemoglobin 9.0L, Hematocrit 29.5L, Mean Corpuscular Volume 92, Mean Corpuscular Hemoglobin 28.3, Mean Corpuscular Hemoglobin Concent 30.6L, Red Cell Distribution Width 17.1H, Platelet Count 344, Mean Platelet Volume 7.1, Neutrophils (%) (Auto) 73.2, Lymphocytes (%) (Auto) 14.7L, Monocytes (%) (Auto) 7.7, Eosinophils (%) (Auto) 3.3H, Basophils (%) (Auto) 1.1, Sodium Level 137, Potassium Level 3.4L, Chloride Level 91L, Carbon Dioxide Level 38H, Anion Gap 8, Blood Urea Nitrogen 7, Creatinine 0.4L, Estimat Glomerular Filtration Rate > 60, Glucose Level 110H, Calcium Level 9.7 Height (Feet): 5 Height (Inches): 6.00 Weight (Pounds): 239 General Appearance: lethargic EENT: normal ENT inspection Neck: normal alignment Cardiovascular: normal peripheral pulses, normal rate, regular rhythm Respiratory/Chest: chest wall non-tender, lungs clear, normal breath sounds Abdomen: normal bowel sounds, non tender, soft Extremities: normal inspection Edema: 1+ Arm (L), 1+ Arm (R), 1+ Leg (L), 1+ Leg (R), 1+ Pedal (L), 1+ Pedal (R), 1+ Generalized Edema: trace edema Neurologic: motor weakness Skin: normal pigmentation, warm/dry Assessment/Plan Problem List: (1) Hypoxia ICD Codes: R09.02 - Hypoxemia SNOMED: 906612908 (2) Respiratory failure ICD Codes: J96.90 - Respiratory failure, unspecified, unspecified whether with hypoxia or hypercapnia SNOMED: 059310967 (3) Respiratory distress ICD Codes: R06.03 - Acute respiratory distress; J12.82 - Pneumonia due to coronavirus disease 2019 SNOMED: 262933447 (4) Pneumonia due to COVID-19 virus ICD Codes: U07.1 - COVID-19; J12.82 - Pneumonia due to coronavirus disease 2019 SNOMED: [id number] Status: unchanged Assessment/Plan: vent abx id pulm f/u cbc bmp am Tank Del Cid DO Jul 12, 2020 09:04
--- NOTE | 2020-07-12 09:24 | Hematology/Onc Progress Note ---
Assessment/Plan Assessment/Plan # Deep vein thrombosis of the right calf --> given onoing anemia and low plts --> consider ivc if bleeding--once stable, needs it placed --> once stable, for radiology and ivc filter placement # Thrombocytopenia is due to infection/underlying covid19+++ --> ABX ceftriaxone -->zosyn-->off --> on steriods likely cause of initial wbc --> per pulm --> plt 107->156-->192-->205 --> smear reviewed # Anemia due to chronic disease --> hgb goal is >7 --> transfuse prn --> ferritin is >1000 --> hold off on iron --> 10-->9.8->9-->8-->8.2-->9.4-->8.1-->9.9-->8 .7-->9.7-->9.5-->8.1-->8.8->8.5->7.2-->7.8-->9 # Elevated ddimer due to covid19++ --> duplex legs is negative --> underlying covid rx # Hypoxia -> due to covid19 --> steriods as needed # Hypoxemia --> rx same as above # Respiratory failure --> on vent/trach --> per pulm # Pneumonia due to COVID-19 virus --> per pulm rx -> sp remdesivir # Diabetes mellitus out of control --> hgb a1c goal <7 # Poor prognosis # Dvt ppx ivc filter once more stable Appreciate consultation and bowen RN Subjective Allergies: Coded Allergies: No Known Allergies (Unverified , 05/28/20) All Systems: reviewed and negative except above Subjective 06/10 nv, on vent, with ogt, on fentanyl and versed, plt stable 06/11 nv, vent adjusted is on ogt, meds reviewed 06/12 nv, vent, meds noted, labs noted, no bleeding, hgb 10.4 06/13 nv, is on vent, meds reviewed, no bleeding, cbc reviewed 06/14 nv, on vent, tachy, labs reviewed, gross hematuria, febrile overnight, abx 06/17 nv, on vent, labs noted, no major changes, feeling better overnight 06/18 nv, meds reviewed, labs noted, no major events, hgb 8.6 06/19 nv, remains intubated, with fluids, labs reviewed, meds noted 06/20 nv, intubated remains on restraints, meds noted as well, as labs 06/21 nv, remains on vent, on restraints, meds reviewed, labs noted 06/22: covering Dr. Del Cid no acute events 06/23 sedated, on vent, nv, intubated, meds reviewed, versed 06/24 nv, on vent, no night sweats, no bleeding, remains in icu 06/25 nv, on vent, icu, meds noted, no bleeding, comfortable 06/26 nv, on versed, icu, weaning parameters, labs noted 06/27 nv, overnight fighting vent, as per pulm fentanyl on board 06/28 nv, on vent, labs reviewed, as per pulm, meds noted 06/30 nv, icu, labs pending, is on fentanyl, versed, no new changes 07/01 nv, icu, is on vent, labs pending, no new changes per rn 07/02 nv, icu is on vent, labs noted, hgb is stable 07/03 nv, icu, is on vent, potential trrach when stable, cbc reviewed 07/04 icu, nv, labs are noted, stable for trach today dw Rn Dl 07/05 icu, nv, on vent, with ng and picc in place, labs noted, s/p trach 07/07 icu, nv, on tv, no bleeding, labs noted, meds reviewed 07/08 icu, nv, on tv, labs reviewed, meds noted, no bleeding 07/09 icu, nv, meds noted, no bleeding, blood transfusion was completed 07/10 icu, nv, labs ntoed, no bleeding, hgb improved, hgb 7.8 07/11 icu, nv, labs reviewed, hgb is improved, for ivcf if stabilizes 07/12 icu, nv, labs reviewed, meds noted, no bleeding, remains on vent Objective Objective Current Medications Medications (Trade) Dose Ordered Sig/Zelda Route PRN Reason Start Time Stop Time Status Last Admin Dose Admin Acetaminophen (Tylenol) 650 mg Q4H PRN NG Temp >100.5 06/29/20 10:15 07/29/20 10:14 07/08/20 18:26 Acetaminophen (Tylenol) 650 mg Q6H PRN NG Mild Pain (Pain Scale 1-3) 06/29/20 10:15 07/29/20 10:14 Chlorhexidine Gluconate (Inna-Hex 2%) 1 applic DAILY@2000 TOPIC 05/30/20 20:00 08/28/20 19:59 07/11/20 20:00 Dextrose (Dextrose 50%) 25 ml Q30M PRN IV Hypoglycemia 06/05/20 10:45 09/03/20 10:44 Dextrose (Dextrose 50%) 50 ml Q30M PRN IV Hypoglycemia 06/05/20 10:45 09/03/20 10:44 Fentanyl Citrate 250 ml @ 0 mls/hr Q24H IV 07/11/20 12:00 07/13/20 11:59 07/11/20 13:26 Furosemide (Lasix) 40 mg DAILY IV 06/22/20 09:00 07/22/20 08:59 07/12/20 08:53 Lansoprazole (Prevacid) 30 mg DAILY GT 07/10/20 09:00 08/09/20 08:59 07/12/20 08:52 Midazolam HCl 200 ml @ 0 mls/hr Q24H PRN IV To Patient Comfort 07/10/20 12:00 07/17/20 11:59 07/12/20 08:55 Midodrine (Pro-Amatine) 10 mg Q8HR GT 06/30/20 14:00 09/12/20 13:59 07/12/20 06:23 Potassium Chloride 100 ml @ 50 mls/hr ONCE IVPB 07/12/20 09:15 07/12/20 10:15 07/12/20 09:02 Vitamin D (Vitamin D) 5,000 unit DAILY GT 06/28/20 09:00 07/28/20 08:59 07/12/20 08:52 Last 24 Hour Vital Signs Date Time Temp Pulse Resp B/P (MAP) Pulse Ox O2 Delivery O2 Flow Rate FiO2 07/12/20 08:55 36 124/56 Mechanical Ventilator 60 07/12/20 07:20 116 36 60 07/12/20 07:00 122 33 124/59 (80) 76 07/12/20 07:00 30 124/50 Mechanical Ventilator 45 07/12/20 07:00 30 124/56 Mechanical Ventilator 45 07/12/20 06:30 80 17 07/12/20 06:00 30 116/76 Mechanical Ventilator 45.0 45 07/12/20 06:00 33 116/76 Mechanical Ventilator 45 07/12/20 06:00 118 35 116/76 (89) 90 07/12/20 05:00 20 124/56 Mechanical Ventilator 45 07/12/20 05:00 30 124/64 Mechanical Ventilator 45 07/12/20 05:00 117 34 124/64 (84) 85 07/12/20 05:00 117 34 124/64 (84) 85 07/12/20 04:00 55 07/12/20 04:00 Mechanical Ventilator Mechanical Ventilator 07/12/20 04:00 102 07/12/20 04:00 26 128/68 Mechanical Ventilator 45 07/12/20 04:00 29 113/62 Mechanical Ventilator 45 07/12/20 04:00 98.5 104 30 113/62 (79) 100 07/12/20 03:07 103 30 45 07/12/20 03:00 24 128/64 Mechanical Ventilator 50 07/12/20 03:00 29 113/62 45 07/12/20 03:00 109 29 128/68 (88) 96 07/12/20 02:00 109 23 119/70 (86) 100 07/12/20 02:00 23 119/70 Mechanical Ventilator 55 07/12/20 02:00 28 119/70 Mechanical Ventilator 55 07/12/20 01:00 28 104/64 Mechanical Ventilator 55 07/12/20 01:00 20 104/64 Mechanical Ventilator 55 07/12/20 01:00 91 26 104/64 (77) 100 07/12/20 00:00 98.6 104 24 108/53 (71) 96 07/12/20 00:00 55 07/12/20 00:00 104 24 108/53 (71) 96 07/12/20 00:00 28 108/58 Mechanical Ventilator 55 07/12/20 00:00 26 108/53 Mechanical Ventilator 55 07/12/20 00:00 100 07/12/20 00:00 Mechanical Ventilator Mechanical Ventilator 07/11/20 23:15 83 22 50 07/11/20 23:00 109 24 115/74 (88) 92 07/11/20 23:00 28 115/71 Mechanical Ventilator 55 07/11/20 23:00 26 115/75 Mechanical Ventilator 55 07/11/20 22:10 24 115/74 Mechanical Ventilator 55 07/11/20 22:10 20 125/87 Mechanical Ventilator 55 07/11/20 22:00 20 120/80 Mechanical Ventilator 55 07/11/20 22:00 28 123/87 Mechanical Ventilator 26 07/11/20 22:00 111 24 125/87 (100) 90 07/11/20 21:00 94 29 110/60 (77) 100 07/11/20 21:00 23 125/87 Mechanical Ventilator 50 07/11/20 21:00 26 110/60 Mechanical Ventilator 55 07/11/20 20:00 Mechanical Ventilator Mechanical Ventilator 07/11/20 20:00 98.8 108 24 123/73 (90) 90 07/11/20 20:00 28 110/60 Mechanical Ventilator 55 07/11/20 20:00 26 123/73 Mechanical Ventilator 55 07/11/20 20:00 55 07/11/20 20:00 102 07/11/20 19:30 84 25 50 18 19:00 85 25 101/60 (74) 100 07/11/20 19:00 25 101/60 Mechanical Ventilator 55 07/11/20 19:00 25 101/60 Mechanical Ventilator 55 07/11/20 18:00 113 23 120/71 (87) 83 07/11/20 18:00 24 120/71 Mechanical Ventilator 50 07/11/20 18:00 24 120/71 Mechanical Ventilator 55 07/11/20 17:00 24 102/61 Mechanical Ventilator 60 07/11/20 17:00 24 102/61 Mechanical Ventilator 60 07/11/20 17:00 80 22 102/61 (75) 100 07/11/20 16:00 97.9 91 29 104/53 (70) 98 07/11/20 16:00 55 07/11/20 16:00 Mechanical Ventilator Mechanical Ventilator 07/11/20 16:00 26 104/53 Mechanical Ventilator 60 07/11/20 16:00 26 104/53 Mechanical Ventilator 60 18 16:00 80 07/11/20 15:00 26 100/60 Mechanical Ventilator 60 07/11/20 15:00 26 100/60 Mechanical Ventilator 60 07/11/20 15:00 90 24 106/58 (74) 100 07/11/20 14:45 93 24 50 07/11/20 14:00 80 21 92/56 (68) 100 07/11/20 14:00 23 91/52 Mechanical Ventilator 60 07/11/20 14:00 23 91/52 Mechanical Ventilator 60 07/11/20 13:26 23 106/55 Mechanical Ventilator 65.0 50 07/11/20 13:25 23 91/52 60 07/11/20 13:00 80 23 91/52 (65) 100 07/11/20 13:00 23 116/78 Mechanical Ventilator 60 07/11/20 13:00 26 116/78 Mechanical Ventilator 60 07/11/20 12:00 50 07/11/20 12:00 98.1 81 23 100/53 (69) 99 07/11/20 12:00 23 106/55 Mechanical Ventilator 50 07/11/20 12:00 23 106/55 Mechanical Ventilator 50 07/11/20 12:00 Mechanical Ventilator Mechanical Ventilator 07/11/20 11:45 84 07/11/20 11:39 26 102/70 Mechanical Ventilator 50 07/11/20 11:15 78 22 50 07/11/20 11:00 23 106/55 Mechanical Ventilator 65 07/11/20 11:00 86 28 106/53 (70) 99 07/11/20 10:00 85 26 102/54 (70) 100 07/11/20 10:00 23 106/53 Mechanical Ventilator 65 07/11/20 10:00 23 106/53 Mechanical Ventilator 65 07/11/20 09:00 23 102/54 Mechanical Ventilator 65 07/11/20 09:00 23 102/54 Mechanical Ventilator 65 07/11/20 09:00 99 20 109/60 (76) 96 07/11/20 08:00 72 07/11/20 08:00 65 07/11/20 08:00 Mechanical Ventilator Mechanical Ventilator 07/11/20 08:00 87 07/11/20 08:00 22 109/60 Mechanical Ventilator 65 07/11/20 08:00 22 109/60 Mechanical Ventilator 65 07/11/20 08:00 98.0 93 30 107/56 (73) 100 07/11/20 07:50 98 26 70 07/11/20 07:00 20 105/55 Mechanical Ventilator 65 07/11/20 07:00 20 105/55 Mechanical Ventilator 65 07/11/20 07:00 72 20 101/55 (70) 100 07/11/20 06:00 80 17 07/11/20 06:00 86 23 103/55 (71) 100 07/11/20 06:00 20 105/58 Mechanical Ventilator 65 07/11/20 06:00 16 104/58 Mechanical Ventilator 65 07/11/20 05:00 19 103/55 Mechanical Ventilator 65 07/11/20 05:00 20 103/55 Non-Rebreather 65 07/11/20 05:00 83 23 103/55 (71) 100 07/11/20 04:00 78 07/11/20 04:00 20 96/55 Mechanical Ventilator 65 07/11/20 04:00 22 98/55 Mechanical Ventilator 65 07/11/20 04:00 65 07/11/20 04:00 Mechanical Ventilator Mechanical Ventilator 07/11/20 04:00 97.7 89 24 98/55 (69) 99 07/11/20 03:15 94 20 70 07/11/20 03:00 25 111/60 Mechanical Ventilator 65 07/11/20 03:00 25 111/60 Mechanical Ventilator 65 07/11/20 03:00 112 25 111/60 (77) 91 07/11/20 02:00 25 93/56 Mechanical Ventilator 65.0 65 07/11/20 02:00 23 93/53 Mechanical Ventilator 65 07/11/20 02:00 86 20 93/50 (64) 100 07/11/20 02:00 86 20 93/50 (64) 100 07/11/20 01:00 82 23 92/50 (64) 100 07/11/20 01:00 24 92/50 Mechanical Ventilator 65 07/11/20 01:00 20 92/50 Mechanical Ventilator 65 07/11/20 00:23 25 96/36 Mechanical Ventilator 65 07/11/20 00:00 65 07/11/20 00:00 98.5 77 22 96/36 (56) 100 07/11/20 00:00 80 07/11/20 00:00 Mechanical Ventilator Mechanical Ventilator 07/11/20 00:00 26 96/36 Mechanical Ventilator 65 07/10/20 23:15 78 23 70 07/10/20 23:00 75 17 92/52 (65) 100 07/10/20 23:00 20 92/80 Mechanical Ventilator 65 07/10/20 23:00 21 92/64 Mechanical Ventilator 65 07/10/20 22:00 82 20 89/55 (66) 100 07/10/20 22:00 19 92/52 Mechanical Ventilator 65 07/10/20 22:00 20 92/52 Mechanical Ventilator 65 07/10/20 21:00 101 22 91/62 (72) 98 07/10/20 21:00 18 94/56 Mechanical Ventilator 65 07/10/20 21:00 22 92/52 Mechanical Ventilator 65 07/10/20 21:00 92 07/10/20 20:00 Mechanical Ventilator Mechanical Ventilator 07/10/20 20:00 20 90/56 Mechanical Ventilator 65 07/10/20 20:00 20 94/56 Mechanical Ventilator 60 07/10/20 20:00 65 07/10/20 20:00 98.8 92 20 72/41 (51) 100 07/10/20 19:05 104 34 70 07/10/20 19:00 97 20 89/41 (57) 98 07/10/20 19:00 21 98/64 Mechanical Ventilator 60 07/10/20 19:00 18 90/56 Mechanical Ventilator 65 07/10/20 18:15 110 25 104/91 (95) 94 07/10/20 18:00 26 105/103 Mechanical Ventilator 65 07/10/20 18:00 26 150/103 Mechanical Ventilator 65 07/10/20 18:00 103 26 150/103 (119) 95 07/10/20 17:00 19 99/49 Mechanical Ventilator 65 07/10/20 17:00 19 99/49 Mechanical Ventilator 65 07/10/20 17:00 84 19 99/49 (66) 100 07/10/20 16:00 99.0 106 24 114/60 (78) 93 07/10/20 16:00 24 114/60 Mechanical Ventilator 70 07/10/20 16:00 24 114/60 Mechanical Ventilator 70 07/10/20 16:00 Mechanical Ventilator Mechanical Ventilator 07/10/20 16:00 65 07/10/20 15:50 90 07/10/20 15:36 65 07/10/20 15:00 102 20 108/67 (81) 99 07/10/20 15:00 20 108/67 Mechanical Ventilator 70 07/10/20 15:00 20 108/67 Mechanical Ventilator 70 07/10/20 14:56 89 20 70 07/10/20 14:00 97 24 113/90 (98) 100 07/10/20 14:00 24 113/90 Mechanical Ventilator 70 07/10/20 14:00 24 113/90 Mechanical Ventilator 70 07/10/20 13:01 19 99/69 Mechanical Ventilator 70 07/10/20 13:00 19 99/69 Mechanical Ventilator 70 07/10/20 13:00 18 96/51 Mechanical Ventilator 70 07/10/20 13:00 19 99/69 Mechanical Ventilator 70 07/10/20 13:00 99.4 89 18 96/51 (66) 100 07/10/20 12:58 99/69 (79) 07/10/20 12:00 94 21 104/63 (77) 99 07/10/20 12:00 Mechanical Ventilator Mechanical Ventilator 07/10/20 12:00 21 104/63 Mechanical Ventilator 70 07/10/20 12:00 21 104/63 Mechanical Ventilator 70 07/10/20 12:00 70 07/10/20 11:40 95 21 70 07/10/20 11:35 98 07/10/20 11:00 24 111/59 Mechanical Ventilator 70 07/10/20 11:00 24 111/59 Mechanical Ventilator 70 07/10/20 11:00 91 24 111/59 (76) 100 07/10/20 10:00 91 21 104/85 (91) 100 07/10/20 10:00 21 104/85 Mechanical Ventilator 70 07/10/20 10:00 21 104/85 Mechanical Ventilator 70 07/10/20 09:45 90 17 100/62 (75) 100 07/10/20 09:30 94 24 104/63 (77) 100 Intake and Output 07/11/20 07/12/20 19:00 07:00 Intake Total 530 ml 370 ml Output Total 560 ml 600 ml Balance -30 ml -230 ml IV Total 530 ml 370 ml Output Urine Total 560 ml 600 ml # Bowel Movements 20 Labs Test 07/09/20 10:17 07/09/20 12:22 07/09/20 17:12 07/10/20 04:30 Arterial Blood pH 7.469 (7.350-7.450) Arterial Blood Partial Pressure CO2 57.3 mmHg (35.0-45.0) Arterial Blood Partial Pressure O2 104.2 mmHg (75.0-100.0) Arterial Blood HCO3 40.7 mmol/L (22.0-26.0) Arterial Blood Oxygen Saturation 97.3 % (95-100) Arterial Blood Base Excess 15.1 (-2-2) Jeremiah Test Positive POC Whole Blood Glucose 86 MG/DL (74-106) 94 MG/DL (74-106) White Blood Count 8.8 K/UL (4.8-10.8) Red Blood Count 2.75 M/UL (4.20-5.40) Hemoglobin 7.8 G/DL (12.0-16.0) Hematocrit 25.4 % (37.0-47.0) Mean Corpuscular Volume 92 FL (80-99) Mean Corpuscular Hemoglobin 28.3 PG (27.0-31.0) Mean Corpuscular Hemoglobin Concent 30.7 G/DL (32.0-36.0) Red Cell Distribution Width 17.7 % (11.6-14.8) Platelet Count 237 K/UL (150-450) Mean Platelet Volume 8.3 FL (6.5-10.1) Neutrophils (%) (Auto) % (45.0-75.0) Lymphocytes (%) (Auto) % (20.0-45.0) Monocytes (%) (Auto) % (1.0-10.0) Eosinophils (%) (Auto) % (0.0-3.0) Basophils (%) (Auto) % (0.0-2.0) Test 07/10/20 08:03 07/10/20 12:12 07/10/20 18:26 07/11/20 02:50 Arterial Blood pH 7.504 (7.350-7.450) Arterial Blood Partial Pressure CO2 54.5 mmHg (35.0-45.0) Arterial Blood Partial Pressure O2 135.3 mmHg (75.0-100.0) Arterial Blood HCO3 41.9 mmol/L (22.0-26.0) Arterial Blood Oxygen Saturation 98.7 % (95-100) Arterial Blood Base Excess 16.9 (-2-2) Jeremiah Test Positive POC Whole Blood Glucose 90 MG/DL (74-106) 95 MG/DL (74-106) White Blood Count 10.7 K/UL (4.8-10.8) Red Blood Count 3.18 M/UL (4.20-5.40) Hemoglobin 9.2 G/DL (12.0-16.0) Hematocrit 29.7 % (37.0-47.0) Mean Corpuscular Volume 93 FL (80-99) Mean Corpuscular Hemoglobin 29.0 PG (27.0-31.0) Mean Corpuscular Hemoglobin Concent 31.1 G/DL (32.0-36.0) Red Cell Distribution Width 17.9 % (11.6-14.8) Platelet Count 325 K/UL (150-450) Mean Platelet Volume 8.0 FL (6.5-10.1) Neutrophils (%) (Auto) 58.9 % (45.0-75.0) Lymphocytes (%) (Auto) 24.5 % (20.0-45.0) Monocytes (%) (Auto) 8.3 % (1.0-10.0) Eosinophils (%) (Auto) 7.3 % (0.0-3.0) Basophils (%) (Auto) 0.9 % (0.0-2.0) Sodium Level 139 MMOL/L (136-145) Potassium Level 3.7 MMOL/L (3.5-5.1) Chloride Level 95 MMOL/L (98-107) Carbon Dioxide Level 40 MMOL/L (21-32) Anion Gap 4 mmol/L (5-15) Blood Urea Nitrogen 9 mg/dL (7-18) Creatinine 0.4 MG/DL (0.55-1.30) Estimat Glomerular Filtration Rate > 60 mL/min (>60) Glucose Level 76 MG/DL (74-106) Calcium Level 9.7 MG/DL (8.5-10.1) Phosphorus Level 3.6 MG/DL (2.5-4.9) Magnesium Level 1.7 MG/DL (1.8-2.4) Total Bilirubin 1.5 MG/DL (0.2-1.0) Direct Bilirubin 0.3 MG/DL (0.0-0.3) Aspartate Amino Transf (AST/SGOT) 28 U/L (15-37) Alanine Aminotransferase (ALT/SGPT) 17 U/L (12-78) Alkaline Phosphatase 73 U/L (46-116) C-Reactive Protein, Quantitative 36.7 mg/dL (0.00-0.90) Pro-B-Type Natriuretic Peptide 454 pg/mL (0-125) Total Protein 8.0 G/DL (6.4-8.2) Albumin 2.4 G/DL (3.4-5.0) Globulin 5.6 g/dL Albumin/Globulin Ratio 0.4 (1.0-2.7) Test 07/11/20 08:15 07/12/20 03:30 Arterial Blood pH 7.421 (7.350-7.450) Arterial Blood Partial Pressure CO2 65.2 mmHg (35.0-45.0) Arterial Blood Partial Pressure O2 64.5 mmHg (75.0-100.0) Arterial Blood HCO3 41.4 mmol/L (22.0-26.0) Arterial Blood Oxygen Saturation 91.2 % (95-100) Arterial Blood Base Excess 14.7 (-2-2) Jeremiah Test Positive White Blood Count 12.6 K/UL (4.8-10.8) Red Blood Count 3.20 M/UL (4.20-5.40) Hemoglobin 9.0 G/DL (12.0-16.0) Hematocrit 29.5 % (37.0-47.0) Mean Corpuscular Volume 92 FL (80-99) Mean Corpuscular Hemoglobin 28.3 PG (27.0-31.0) Mean Corpuscular Hemoglobin Concent 30.6 G/DL (32.0-36.0) Red Cell Distribution Width 17.1 % (11.6-14.8) Platelet Count 344 K/UL (150-450) Mean Platelet Volume 7.1 FL (6.5-10.1) Neutrophils (%) (Auto) 73.2 % (45.0-75.0) Lymphocytes (%) (Auto) 14.7 % (20.0-45.0) Monocytes (%) (Auto) 7.7 % (1.0-10.0) Eosinophils (%) (Auto) 3.3 % (0.0-3.0) Basophils (%) (Auto) 1.1 % (0.0-2.0) Sodium Level 137 MMOL/L (136-145) Potassium Level 3.4 MMOL/L (3.5-5.1) Chloride Level 91 MMOL/L (98-107) Carbon Dioxide Level 38 MMOL/L (21-32) Anion Gap 8 mmol/L (5-15) Blood Urea Nitrogen 7 mg/dL (7-18) Creatinine 0.4 MG/DL (0.55-1.30) Estimat Glomerular Filtration Rate > 60 mL/min (>60) Glucose Level 110 MG/DL (74-106) Calcium Level 9.7 MG/DL (8.5-10.1) Height (Feet): 5 Height (Inches): 6.00 Weight (Pounds): 239 Objective GeNL: nv Pulm: vent/trach++ CV: rrr Abd: soft, nt, nd Ext: no cce Myron Condon MD Jul 12, 2020 09:24
--- NOTE | 2020-07-12 09:24 | NUR ---
RESPIRATORY NOTE: Patient was repositioned at this time. Saturation improved. FiO2 decreased from 60% to 50%. PT tolerating well. Currently SPO2 is 96%. Jacklyn ELLINGTON is aware. Will continue to monitor.
--- NOTE | 2020-07-12 09:54 | NUR ---
RD ASSESSMENT & RECOMMENDATIONS SEE CARE ACTIVITY FOR COMPLETE ASSESSMENT DAILY ESTIMATED NEEDS: Needs based on Critical care, obesity 11-14kcal/kg actual body wt (140kg) kcals/kg 6139-8067 total kcals 1.5-2.0g prot/kg IBW (64.5kg) g protein/kg 96-129 g total protein 25-30ml/kg abw (83kg) mL/kg 4264-7541 total fluid mLs NUTRITION DIAGNOSIS: Swallowing difficulty R/T respiratory failure as evidenced by pt now s/p trach placement (07/04), sedated, NPO at this time w/ NGT to LIS. CURRENT TF:NPO, w/ NGT to LIS since 07/07 ENTERAL NUTRITION RECOMMENDATIONS: Glucerna 1.2 @ 55ml/hr x 24 hrs + Prosource 1pkt BID to provide 1320ml, 1584kcal, 79g+22g prot, 1063ml free water * As medically appropriate, initiate Glucerna 1.2 @ 15ml/hr x 6hrs * Advance 10ml q 4-6 hrs as tolerated to goal rate. * Add Prosource 1pkt BID (additional 22g prot) to meet protein needs * HOB over 30 degrees/ water flush per MD ADDITIONAL RECOMMENDATIONS: * Calibrated bedscale wt * Monitor Propofol rate, need for TF adjustment-> now off * Monitor BGs closely : now improved, on NISS only * Pt w/ rectal tube- Colace and Miralax now dc'ed * Monitor NPO status: TF held since 07/07, w/ NGT w/ LIS -> rec PN if unable to resume TF in the next 3 days .
[2020-07-12 09:59] LABS: ALANINE AMINOTRANSFERASE 14 U/L (12-78); ALBUMIN 2.2 G/DL (3.4-5.0); ALKALINE PHOSPHATASE 72 U/L (46-116); ASPARTATE AMINO TRANSFERASE 26 U/L (15-37); BILIRUBIN,DIRECT 0.4 MG/DL (0.0-0.3); BILIRUBIN,TOTAL 1.2 MG/DL (0.2-1.0); PHOSPHORUS 3.4 MG/DL (2.5-4.9)
--- NOTE | 2020-07-12 10:00 | NUR ---
NURSE NOTES: AM meds were administered. Oral care was done. Suctioned with minimal thin/secretions/output from trach. Repositioned for comfort. Dr Nava is at the nurse's station. Received order to titrate peep down to 5. RT aware.
--- NOTE | 2020-07-12 10:12 | NUR ---
RESPIRATORY NOTE: PEEP decreased from +7 to +[address] Nicole's verbal order, PT tolerating PEEP of +5 well at this time. Jacklyn ELLINGTON is aware.
--- NOTE | 2020-07-12 10:26 | Pulmonology Progress Note ---
Subjective ROS Limited/Unobtainable: Yes Interval Events: S/p tracheostomy 07/04/20 Constitutional: Reports: fever, other - T=100 HEENT: Repors: no symptoms Respiratory: Reports: no symptoms Cardiovascular: Reports: no symptoms Gastrointestinal/Abdominal: Reports: no symptoms Genitourinary: Reports: no symptoms Allergies: Coded Allergies: No Known Allergies (Unverified , 05/28/20) All Systems: reviewed and negative except above Objective Last 24 Hour Vital Signs Date Time Temp Pulse Resp B/P (MAP) Pulse Ox O2 Delivery O2 Flow Rate FiO2 07/12/20 09:00 119 28 128/69 (88) 97 07/12/20 08:55 36 124/56 Mechanical Ventilator 60 07/12/20 08:00 99.0 104 31 107/57 (74) 100 07/12/20 08:00 Mechanical Ventilator Mechanical Ventilator 07/12/20 08:00 110 07/12/20 08:00 55 07/12/20 07:20 116 36 60 07/12/20 07:00 122 33 124/59 (80) 76 07/12/20 07:00 30 124/50 Mechanical Ventilator 45 07/12/20 07:00 30 124/56 Mechanical Ventilator 45 07/12/20 06:30 80 17 07/12/20 06:00 30 116/76 Mechanical Ventilator 45.0 45 07/12/20 06:00 33 116/76 Mechanical Ventilator 45 07/12/20 06:00 118 35 116/76 (89) 90 07/12/20 05:00 20 124/56 Mechanical Ventilator 45 07/12/20 05:00 30 124/64 Mechanical Ventilator 45 07/12/20 05:00 117 34 124/64 (84) 85 07/12/20 05:00 117 34 124/64 (84) 85 07/12/20 04:00 55 07/12/20 04:00 Mechanical Ventilator Mechanical Ventilator 07/12/20 04:00 102 07/12/20 04:00 26 128/68 Mechanical Ventilator 45 07/12/20 04:00 29 113/62 Mechanical Ventilator 45 07/12/20 04:00 98.5 104 30 113/62 (79) 100 07/12/20 03:07 103 30 45 07/12/20 03:00 24 128/64 Mechanical Ventilator 50 07/12/20 03:00 29 113/62 45 07/12/20 03:00 109 29 128/68 (88) 96 07/12/20 02:00 109 23 119/70 (86) 100 07/12/20 02:00 23 119/70 Mechanical Ventilator 55 07/12/20 02:00 28 119/70 Mechanical Ventilator 55 07/12/20 01:00 28 104/64 Mechanical Ventilator 55 07/12/20 01:00 20 104/64 Mechanical Ventilator 55 07/12/20 01:00 91 26 104/64 (77) 100 07/12/20 00:00 98.6 104 24 108/53 (71) 96 07/12/20 00:00 55 07/12/20 00:00 104 24 108/53 (71) 96 07/12/20 00:00 28 108/58 Mechanical Ventilator 55 07/12/20 00:00 26 108/53 Mechanical Ventilator 55 07/12/20 00:00 100 07/12/20 00:00 Mechanical Ventilator Mechanical Ventilator 07/11/20 23:15 83 22 50 07/11/20 23:00 109 24 115/74 (88) 92 07/11/20 23:00 28 115/71 Mechanical Ventilator 55 07/11/20 23:00 26 115/75 Mechanical Ventilator 55 07/11/20 22:10 24 115/74 Mechanical Ventilator 55 07/11/20 22:10 20 125/87 Mechanical Ventilator 55 07/11/20 22:00 20 120/80 Mechanical Ventilator 55 07/11/20 22:00 28 123/87 Mechanical Ventilator 26 07/11/20 22:00 111 24 125/87 (100) 90 07/11/20 21:00 94 29 110/60 (77) 100 07/11/20 21:00 23 125/87 Mechanical Ventilator 50 07/11/20 21:00 26 110/60 Mechanical Ventilator 55 07/11/20 20:00 Mechanical Ventilator Mechanical Ventilator 07/11/20 20:00 98.8 108 24 123/73 (90) 90 07/11/20 20:00 28 110/60 Mechanical Ventilator 55 07/11/20 20:00 26 123/73 Mechanical Ventilator 55 07/11/20 20:00 55 07/11/20 20:00 102 07/11/20 19:30 84 25 50 07/11/20 19:00 85 25 101/60 (74) 100 07/11/20 19:00 25 101/60 Mechanical Ventilator 55 07/11/20 19:00 25 101/60 Mechanical Ventilator 55 07/11/20 18:00 113 23 120/71 (87) 83 07/11/20 18:00 24 120/71 Mechanical Ventilator 50 07/11/20 18:00 24 120/71 Mechanical Ventilator 55 07/11/20 17:00 24 102/61 Mechanical Ventilator 60 07/11/20 17:00 24 102/61 Mechanical Ventilator 60 07/11/20 17:00 80 22 102/61 (75) 100 07/11/20 16:00 97.9 91 29 104/53 (70) 98 07/11/20 16:00 55 07/11/20 16:00 Mechanical Ventilator Mechanical Ventilator 07/11/20 16:00 26 104/53 Mechanical Ventilator 60 07/11/20 16:00 26 104/53 Mechanical Ventilator 60 07/11/20 16:00 80 07/11/20 15:00 26 100/60 Mechanical Ventilator 60 07/11/20 15:00 26 100/60 Mechanical Ventilator 60 07/11/20 15:00 90 24 106/58 (74) 100 07/11/20 14:45 93 24 50 07/11/20 14:00 80 21 92/56 (68) 100 07/11/20 14:00 23 91/52 Mechanical Ventilator 60 07/11/20 14:00 23 91/52 Mechanical Ventilator 60 07/11/20 13:26 23 106/55 Mechanical Ventilator 65.0 50 07/11/20 13:25 23 91/52 60 07/11/20 13:00 80 23 91/52 (65) 100 07/11/20 13:00 23 116/78 Mechanical Ventilator 60 07/11/20 13:00 26 116/78 Mechanical Ventilator 60 07/11/20 12:00 50 07/11/20 12:00 98.1 81 23 100/53 (69) 99 07/11/20 12:00 23 106/55 Mechanical Ventilator 50 07/11/20 12:00 23 106/55 Mechanical Ventilator 50 07/11/20 12:00 Mechanical Ventilator Mechanical Ventilator 07/11/20 11:45 84 07/11/20 11:39 26 102/70 Mechanical Ventilator 50 07/11/20 11:15 78 22 50 07/11/20 11:00 23 106/55 Mechanical Ventilator 65 07/11/20 11:00 86 28 106/53 (70) 99 Intake and Output 07/11/20 07/12/20 19:00 07:00 Intake Total 530 ml 370 ml Output Total 560 ml 600 ml Balance -30 ml -230 ml IV Total 530 ml 370 ml Output Urine Total 560 ml 600 ml # Bowel Movements 20 General Appearance: no acute distress HEENT: normocephalic, status post trach Respiratory: chest wall non-tender Cardiovascular: normal peripheral pulses Abdomen: normal bowel sounds Laboratory Tests 07/12/20 03:30: White Blood Count 12.6H, Red Blood Count 3.20L, Hemoglobin 9.0L, Hematocrit 29.5L, Mean Corpuscular Volume 92, Mean Corpuscular Hemoglobin 28.3, Mean Corpuscular Hemoglobin Concent 30.6L, Red Cell Distribution Width 17.1H, Platelet Count 344, Mean Platelet Volume 7.1, Neutrophils (%) (Auto) 73.2, Lymphocytes (%) (Auto) 14.7L, Monocytes (%) (Auto) 7.7, Eosinophils (%) (Auto) 3.3H, Basophils (%) (Auto) 1.1, Sodium Level 137, Potassium Level 3.4L, Chloride Level 91L, Carbon Dioxide Level 38H, Anion Gap 8, Blood Urea Nitrogen 7, Creatinine 0.4L, Estimat Glomerular Filtration Rate > 60, Glucose Level 110H, Calcium Level 9.7, Phosphorus Level 3.4, Magnesium Level 1.8, Total Bilirubin 1.2H, Direct Bilirubin 0.4H, Aspartate Amino Transf (AST/SGOT) 26, Alanine Aminotransferase (ALT/SGPT) 14, Alkaline Phosphatase 72, Total Protein 7.6, Albumin 2.2L Current Medications Medications (Trade) Dose Ordered Sig/Zelda Route PRN Reason Start Time Stop Time Status Last Admin Dose Admin Acetaminophen (Tylenol) 650 mg Q4H PRN NG Temp >100.5 06/29/20 10:15 07/29/20 10:14 07/08/20 18:26 Acetaminophen (Tylenol) 650 mg Q6H PRN NG Mild Pain (Pain Scale 1-3) 06/29/20 10:15 07/29/20 10:14 Chlorhexidine Gluconate (Inna-Hex 2%) 1 applic DAILY@1999 TOPIC 05/30/20 20:00 08/28/20 19:59 07/11/20 20:00 Dextrose (Dextrose 50%) 25 ml Q30M PRN IV Hypoglycemia 06/05/20 10:45 09/03/20 10:44 Dextrose (Dextrose 50%) 50 ml Q30M PRN IV Hypoglycemia 06/05/20 10:45 09/03/20 10:44 Fentanyl Citrate 250 ml @ 0 mls/hr Q24H IV 07/11/20 12:00 07/13/20 11:59 07/11/20 13:26 Furosemide (Lasix) 40 mg DAILY IV 06/22/20 09:00 07/22/20 08:59 07/12/20 08:53 Lansoprazole (Prevacid) 30 mg DAILY GT 07/10/20 09:00 08/09/20 08:59 07/12/20 08:52 Midazolam HCl 200 ml @ 0 mls/hr Q24H PRN IV To Patient Comfort 07/10/20 12:00 07/17/20 11:59 07/12/20 08:55 Midodrine (Pro-Amatine) 10 mg Q8HR GT 06/30/20 14:00 09/12/20 13:59 07/12/20 06:23 Vitamin D (Vitamin D) 5,000 unit DAILY GT 06/28/20 09:00 07/28/20 08:59 07/12/20 08:52 Assessment/Plan Assessment/Plan 1. COVID-19 pneumonia -Intubated 05/28/20 - We will continue broad-spectrum antibiotics. -s/p solumedrol, Rocephin -Continue PEEP 6 ->7 - Peak airway pressures high; 38 - FiO2 100% -> 90 ->80->60 ->40 ->80 ->100 ->70 ->60; PEEP 7 -will continue OGT feeding -Continue sedation; Need to keep patient completely sedated. 2. Hyponatremia -Per primary MD 3. Elevated inflammatory markers - has high D dimer; Lovenox re-started 4. Decreased PEEP Continue weaning efforts S/p trach Off IV fluids Begin dc planning to subacute; will need to wean down O2 prior to transfer Javier Nava MD Jul 12, 2020 10:26
--- NOTE | 2020-07-12 11:15 | Infectious Diseases Prog Note ---
Assessment/Plan Assessment/Plan antibiotics : none A 1. covid 19 pneumonia s/p remdesivir s/p solumedrol 2. respiratory failure s/p tracheostomy 3. serratia pneumonia s/p rx P 1. continue off antibiotics 2. continue isolation Subjective ROS Limited/Unobtainable: Yes Allergies: Coded Allergies: No Known Allergies (Unverified , 05/28/20) Objective Last 24 Hour Vital Signs Date Time Temp Pulse Resp B/P (MAP) Pulse Ox O2 Delivery O2 Flow Rate FiO2 07/12/20 09:00 119 28 128/69 (88) 97 07/12/20 08:55 36 124/56 Mechanical Ventilator 60 07/12/20 08:00 99.0 104 31 107/57 (74) 100 07/12/20 08:00 Mechanical Ventilator Mechanical Ventilator 07/12/20 08:00 110 07/12/20 08:00 55 07/12/20 07:20 116 36 60 07/12/20 07:00 122 33 124/59 (80) 76 07/12/20 07:00 30 124/50 Mechanical Ventilator 45 07/12/20 07:00 30 124/56 Mechanical Ventilator 45 07/12/20 06:30 80 17 07/12/20 06:00 30 116/76 Mechanical Ventilator 45.0 45 07/12/20 06:00 33 116/76 Mechanical Ventilator 45 07/12/20 06:00 118 35 116/76 (89) 90 07/12/20 05:00 20 124/56 Mechanical Ventilator 45 07/12/20 05:00 30 124/64 Mechanical Ventilator 45 07/12/20 05:00 117 34 124/64 (84) 85 07/12/20 05:00 117 34 124/64 (84) 85 07/12/20 04:00 55 07/12/20 04:00 Mechanical Ventilator Mechanical Ventilator 07/12/20 04:00 102 07/12/20 04:00 26 128/68 Mechanical Ventilator 45 07/12/20 04:00 29 113/62 Mechanical Ventilator 45 07/12/20 04:00 98.5 104 30 113/62 (79) 100 07/12/20 03:07 103 30 45 07/12/20 03:00 24 128/64 Mechanical Ventilator 50 07/12/20 03:00 29 113/62 45 07/12/20 03:00 109 29 128/68 (88) 96 07/12/20 02:00 109 23 119/70 (86) 100 07/12/20 02:00 23 119/70 Mechanical Ventilator 55 07/12/20 02:00 28 119/70 Mechanical Ventilator 55 07/12/20 01:00 28 104/64 Mechanical Ventilator 55 07/12/20 01:00 20 104/64 Mechanical Ventilator 55 07/12/20 01:00 91 26 104/64 (77) 100 07/12/20 00:00 98.6 104 24 108/53 (71) 96 07/12/20 00:00 55 07/12/20 00:00 104 24 108/53 (71) 96 07/12/20 00:00 28 108/58 Mechanical Ventilator 55 07/12/20 00:00 26 108/53 Mechanical Ventilator 55 07/12/20 00:00 100 07/12/20 00:00 Mechanical Ventilator Mechanical Ventilator 07/11/20 23:15 83 22 50 07/11/20 23:00 109 24 115/74 (88) 92 07/11/20 23:00 28 115/71 Mechanical Ventilator 55 07/11/20 23:00 26 115/75 Mechanical Ventilator 55 07/11/20 22:10 24 115/74 Mechanical Ventilator 55 07/11/20 22:10 20 125/87 Mechanical Ventilator 55 07/11/20 22:00 20 120/80 Mechanical Ventilator 55 07/11/20 22:00 28 123/87 Mechanical Ventilator 26 07/11/20 22:00 111 24 125/87 (100) 90 07/11/20 21:00 94 29 110/60 (77) 100 07/11/20 21:00 23 125/87 Mechanical Ventilator 50 07/11/20 21:00 26 110/60 Mechanical Ventilator 55 07/11/20 20:00 Mechanical Ventilator Mechanical Ventilator 07/11/20 20:00 98.8 108 24 123/73 (90) 90 07/11/20 20:00 28 110/60 Mechanical Ventilator 55 07/11/20 20:00 26 123/73 Mechanical Ventilator 55 07/11/20 20:00 55 07/11/20 20:00 102 07/11/20 19:30 84 25 50 07/11/20 19:00 85 25 101/60 (74) 100 07/11/20 19:00 25 101/60 Mechanical Ventilator 55 07/11/20 19:00 25 101/60 Mechanical Ventilator 55 07/11/20 18:00 113 23 120/71 (87) 83 07/11/20 18:00 24 120/71 Mechanical Ventilator 50 07/11/20 18:00 24 120/71 Mechanical Ventilator 55 07/11/20 17:00 24 102/61 Mechanical Ventilator 60 07/11/20 17:00 24 102/61 Mechanical Ventilator 60 07/11/20 17:00 80 22 102/61 (75) 100 07/11/20 16:00 97.9 91 29 104/53 (70) 98 07/11/20 16:00 55 07/11/20 16:00 Mechanical Ventilator Mechanical Ventilator 07/11/20 16:00 26 104/53 Mechanical Ventilator 60 07/11/20 16:00 26 104/53 Mechanical Ventilator 60 07/11/20 16:00 80 07/11/20 15:00 26 100/60 Mechanical Ventilator 60 07/11/20 15:00 26 100/60 Mechanical Ventilator 60 07/11/20 15:00 90 24 106/58 (74) 100 07/11/20 14:45 93 24 50 07/11/20 14:00 80 21 92/56 (68) 100 07/11/20 14:00 23 91/52 Mechanical Ventilator 60 07/11/20 14:00 23 91/52 Mechanical Ventilator 60 07/11/20 13:26 23 106/55 Mechanical Ventilator 65.0 50 07/11/20 13:25 23 91/52 60 07/11/20 13:00 80 23 91/52 (65) 100 07/11/20 13:00 23 116/78 Mechanical Ventilator 60 07/11/20 13:00 26 116/78 Mechanical Ventilator 60 07/11/20 12:00 50 07/11/20 12:00 98.1 81 23 100/53 (69) 99 07/11/20 12:00 23 106/55 Mechanical Ventilator 50 07/11/20 12:00 23 106/55 Mechanical Ventilator 50 07/11/20 12:00 Mechanical Ventilator Mechanical Ventilator 07/11/20 11:45 84 07/11/20 11:39 26 102/70 Mechanical Ventilator 50 07/11/20 11:15 78 22 50 Height (Feet): 5 Height (Inches): 6.00 Weight (Pounds): 239 HEENT: status post trach Respiratory/Chest: lungs clear Cardiovascular: normal rate, regular rhythm, no gallop/murmur Abdomen: soft, non tender Extremities: no edema Laboratory Tests Test 07/12/20 03:30 White Blood Count 12.6 K/UL (4.8-10.8) H Red Blood Count 3.20 M/UL (4.20-5.40) L Hemoglobin 9.0 G/DL (12.0-16.0) L Hematocrit 29.5 % (37.0-47.0) L Mean Corpuscular Volume 92 FL (80-99) Mean Corpuscular Hemoglobin 28.3 PG (27.0-31.0) Mean Corpuscular Hemoglobin Concent 30.6 G/DL (32.0-36.0) L Red Cell Distribution Width 17.1 % (11.6-14.8) H Platelet Count 344 K/UL (150-450) Mean Platelet Volume 7.1 FL (6.5-10.1) Neutrophils (%) (Auto) 73.2 % (45.0-75.0) Lymphocytes (%) (Auto) 14.7 % (20.0-45.0) L Monocytes (%) (Auto) 7.7 % (1.0-10.0) Eosinophils (%) (Auto) 3.3 % (0.0-3.0) H Basophils (%) (Auto) 1.1 % (0.0-2.0) Sodium Level 137 MMOL/L (136-145) Potassium Level 3.4 MMOL/L (3.5-5.1) L Chloride Level 91 MMOL/L (98-107) L Carbon Dioxide Level 38 MMOL/L (21-32) H Anion Gap 8 mmol/L (5-15) Blood Urea Nitrogen 7 mg/dL (7-18) Creatinine 0.4 MG/DL (0.55-1.30) L Estimat Glomerular Filtration Rate > 60 mL/min (>60) Glucose Level 110 MG/DL (74-106) H Calcium Level 9.7 MG/DL (8.5-10.1) Phosphorus Level 3.4 MG/DL (2.5-4.9) Magnesium Level 1.8 MG/DL (1.8-2.4) Total Bilirubin 1.2 MG/DL (0.2-1.0) H Direct Bilirubin 0.4 MG/DL (0.0-0.3) H Aspartate Amino Transf (AST/SGOT) 26 U/L (15-37) Alanine Aminotransferase (ALT/SGPT) 14 U/L (12-78) Alkaline Phosphatase 72 U/L (46-116) Total Protein 7.6 G/DL (6.4-8.2) Albumin 2.2 G/DL (3.4-5.0) L Current Medications Medications (Trade) Dose Ordered Sig/Zelda Route PRN Reason Start Time Stop Time Status Last Admin Dose Admin Acetaminophen (Tylenol) 650 mg Q4H PRN NG Temp >100.5 06/29/20 10:15 07/29/20 10:14 07/08/20 18:26 Acetaminophen (Tylenol) 650 mg Q6H PRN NG Mild Pain (Pain Scale 1-3) 06/29/20 10:15 07/29/20 10:14 Chlorhexidine Gluconate (Inna-Hex 2%) 1 applic DAILY@2000 TOPIC 05/30/20 20:00 08/28/20 19:59 07/11/20 20:00 Dextrose (Dextrose 50%) 25 ml Q30M PRN IV Hypoglycemia 06/05/20 10:45 09/03/20 10:44 Dextrose (Dextrose 50%) 50 ml Q30M PRN IV Hypoglycemia 06/05/20 10:45 09/03/20 10:44 Fentanyl Citrate 250 ml @ 0 mls/hr Q24H IV 07/11/20 12:00 07/13/20 11:59 07/11/20 13:26 Furosemide (Lasix) 40 mg DAILY IV 06/22/20 09:00 07/22/20 08:59 07/12/20 08:53 Lansoprazole (Prevacid) 30 mg DAILY GT 07/10/20 09:00 08/09/20 08:59 07/12/20 08:52 Midazolam HCl 200 ml @ 0 mls/hr Q24H PRN IV To Patient Comfort 07/10/20 12:00 07/17/20 11:59 07/12/20 08:55 Midodrine (Pro-Amatine) 10 mg Q8HR GT 06/30/20 14:00 09/12/20 13:59 07/12/20 06:23 Vitamin D (Vitamin D) 5,000 unit DAILY GT 06/28/20 09:00 07/28/20 08:59 07/12/20 08:52 Fili Mcelroy MD Jul 12, 2020 11:15
--- NOTE | 2020-07-12 11:22 | NUR ---
RESPIRATORY NOTE: FIO2 decreased from 50% to 40% at this time, Current saturation is 100%. Jacklyn ELLINGTON is aware. Will continue to closely monitor.
--- NOTE | 2020-07-12 12:12 | NUR ---
RESPIRATORY NOTE: FIO2 increased from 40% to 60% at this time due to a saturation of 88% Current saturation is 95%. Jacklyn ELLINGTON is aware. Will continue to closely monitor.
--- NOTE | 2020-07-12 12:15 | NUR ---
NURSE NOTES: KCL 20meq IV given to replace K=3.[address] Tyler's order. Remains afebrile while on cooling blanket. Remains on Fentanyl and Versed drips same rate to maintain -2 light sedation.
--- NOTE | 2020-07-12 12:43 | Surgery Progress Note ---
Surgery Progress Note Subjective Procedure Performed right femoral central venous line insertion Additional Comments weaning well looks better more comfortable Objective Last 24 Hour Vital Signs Date Time Temp Pulse Resp B/P (MAP) Pulse Ox O2 Delivery O2 Flow Rate FiO2 07/12/20 12:12 110 30 60 07/12/20 11:22 95 26 40 07/12/20 11:00 22 93/63 Mechanical Ventilator 50 07/12/20 11:00 26 93/63 Mechanical Ventilator 50 07/12/20 11:00 97 0 93/63 (73) 100 07/12/20 10:12 119 30 50 07/12/20 10:00 26 103/68 Mechanical Ventilator 50 07/12/20 10:00 26 103/68 Mechanical Ventilator 50 07/12/20 10:00 109 27 103/68 (80) 97 07/12/20 09:24 122 29 50 07/12/20 09:00 28 124/56 Mechanical Ventilator 50 07/12/20 09:00 119 28 128/69 (88) 97 07/12/20 08:55 36 124/56 Mechanical Ventilator 60 07/12/20 08:00 99.0 104 31 107/57 (74) 100 07/12/20 08:00 Mechanical Ventilator Mechanical Ventilator 07/12/20 08:00 29 107/57 Mechanical Ventilator 50 07/12/20 08:00 29 107/57 Mechanical Ventilator 50 07/12/20 08:00 110 07/12/20 08:00 55 07/12/20 07:20 116 36 60 07/12/20 07:00 122 33 124/59 (80) 76 07/12/20 07:00 30 124/50 Mechanical Ventilator 45 07/12/20 07:00 30 124/56 Mechanical Ventilator 45 07/12/20 06:30 80 17 07/12/20 06:00 30 116/76 Mechanical Ventilator 45.0 45 07/12/20 06:00 33 116/76 Mechanical Ventilator 45 07/12/20 06:00 118 35 116/76 (89) 90 07/12/20 05:00 20 124/56 Mechanical Ventilator 45 07/12/20 05:00 30 124/64 Mechanical Ventilator 45 07/12/20 05:00 117 34 124/64 (84) 85 07/12/20 05:00 117 34 124/64 (84) 85 07/12/20 04:00 55 07/12/20 04:00 Mechanical Ventilator Mechanical Ventilator 07/12/20 04:00 102 07/12/20 04:00 26 128/68 Mechanical Ventilator 45 07/12/20 04:00 29 113/62 Mechanical Ventilator 45 07/12/20 04:00 98.5 104 30 113/62 (79) 100 07/12/20 03:07 103 30 45 07/12/20 03:00 24 128/64 Mechanical Ventilator 50 07/12/20 03:00 29 113/62 45 07/12/20 03:00 109 29 128/68 (88) 96 07/12/20 02:00 109 23 119/70 (86) 100 07/12/20 02:00 23 119/70 Mechanical Ventilator 55 07/12/20 02:00 28 119/70 Mechanical Ventilator 55 07/12/20 01:00 28 104/64 Mechanical Ventilator 55 07/12/20 01:00 20 104/64 Mechanical Ventilator 55 07/12/20 01:00 91 26 104/64 (77) 100 07/12/20 00:00 98.6 104 24 108/53 (71) 96 07/12/20 00:00 55 07/12/20 00:00 104 24 108/53 (71) 96 07/12/20 00:00 28 108/58 Mechanical Ventilator 55 07/12/20 00:00 26 108/53 Mechanical Ventilator 55 07/12/20 00:00 100 07/12/20 00:00 Mechanical Ventilator Mechanical Ventilator 07/11/20 23:15 83 22 50 07/11/20 23:00 109 24 115/74 (88) 92 07/11/20 23:00 28 115/71 Mechanical Ventilator 55 07/11/20 23:00 26 115/75 Mechanical Ventilator 55 07/11/20 22:10 24 115/74 Mechanical Ventilator 55 07/11/20 22:10 20 125/87 Mechanical Ventilator 55 07/11/20 22:00 20 120/80 Mechanical Ventilator 55 07/11/20 22:00 28 123/87 Mechanical Ventilator 26 07/11/20 22:00 111 24 125/87 (100) 90 07/11/20 21:00 94 29 110/60 (77) 100 07/11/20 21:00 23 125/87 Mechanical Ventilator 50 07/11/20 21:00 26 110/60 Mechanical Ventilator 55 07/11/20 20:00 Mechanical Ventilator Mechanical Ventilator 07/11/20 20:00 98.8 108 24 123/73 (90) 90 07/11/20 20:00 28 110/60 Mechanical Ventilator 55 07/11/20 20:00 26 123/73 Mechanical Ventilator 55 07/11/20 20:00 55 07/11/20 20:00 102 07/11/20 19:30 84 25 50 07/11/20 19:00 85 25 101/60 (74) 100 07/11/20 19:00 25 101/60 Mechanical Ventilator 55 07/11/20 19:00 25 101/60 Mechanical Ventilator 55 07/11/20 18:00 113 23 120/71 (87) 83 07/11/20 18:00 24 120/71 Mechanical Ventilator 50 07/11/20 18:00 24 120/71 Mechanical Ventilator 55 07/11/20 17:00 24 102/61 Mechanical Ventilator 60 07/11/20 17:00 24 102/61 Mechanical Ventilator 60 07/11/20 17:00 80 22 102/61 (75) 100 07/11/20 16:00 97.9 91 29 104/53 (70) 98 07/11/20 16:00 55 07/11/20 16:00 Mechanical Ventilator Mechanical Ventilator 07/11/20 16:00 26 104/53 Mechanical Ventilator 60 07/11/20 16:00 26 104/53 Mechanical Ventilator 60 07/11/20 16:00 80 07/11/20 15:00 26 100/60 Mechanical Ventilator 60 07/11/20 15:00 26 100/60 Mechanical Ventilator 60 07/11/20 15:00 90 24 106/58 (74) 100 07/11/20 14:45 93 24 50 07/11/20 14:00 80 21 92/56 (68) 100 07/11/20 14:00 23 91/52 Mechanical Ventilator 60 07/11/20 14:00 23 91/52 Mechanical Ventilator 60 07/11/20 13:26 23 106/55 Mechanical Ventilator 65.0 50 07/11/20 13:25 23 91/52 60 07/11/20 13:00 80 23 91/52 (65) 100 07/11/20 13:00 23 116/78 Mechanical Ventilator 60 07/11/20 13:00 26 116/78 Mechanical Ventilator 60 I&O Intake and Output 07/11/20 07/12/20 19:00 07:00 Intake Total 530 ml 370 ml Output Total 560 ml 600 ml Balance -30 ml -230 ml IV Total 530 ml 370 ml Output Urine Total 560 ml 600 ml # Bowel Movements 20 Dressing: saturated Cardiovascular: RSR Respiratory: decreased breath sounds Abdomen: soft, non-tender, present bowel sounds, non-distended, decreased bowel sounds Extremities: edema, no tenderness, no cyanosis Laboratory Tests Test 07/12/20 03:30 White Blood Count 12.6 K/UL (4.8-10.8) H Red Blood Count 3.20 M/UL (4.20-5.40) L Hemoglobin 9.0 G/DL (12.0-16.0) L Hematocrit 29.5 % (37.0-47.0) L Mean Corpuscular Volume 92 FL (80-99) Mean Corpuscular Hemoglobin 28.3 PG (27.0-31.0) Mean Corpuscular Hemoglobin Concent 30.6 G/DL (32.0-36.0) L Red Cell Distribution Width 17.1 % (11.6-14.8) H Platelet Count 344 K/UL (150-450) Mean Platelet Volume 7.1 FL (6.5-10.1) Neutrophils (%) (Auto) 73.2 % (45.0-75.0) Lymphocytes (%) (Auto) 14.7 % (20.0-45.0) L Monocytes (%) (Auto) 7.7 % (1.0-10.0) Eosinophils (%) (Auto) 3.3 % (0.0-3.0) H Basophils (%) (Auto) 1.1 % (0.0-2.0) Sodium Level 137 MMOL/L (136-145) Potassium Level 3.4 MMOL/L (3.5-5.1) L Chloride Level 91 MMOL/L (98-107) L Carbon Dioxide Level 38 MMOL/L (21-32) H Anion Gap 8 mmol/L (5-15) Blood Urea Nitrogen 7 mg/dL (7-18) Creatinine 0.4 MG/DL (0.55-1.30) L Estimat Glomerular Filtration Rate > 60 mL/min (>60) Glucose Level 110 MG/DL (74-106) H Calcium Level 9.7 MG/DL (8.5-10.1) Phosphorus Level 3.4 MG/DL (2.5-4.9) Magnesium Level 1.8 MG/DL (1.8-2.4) Total Bilirubin 1.2 MG/DL (0.2-1.0) H Direct Bilirubin 0.4 MG/DL (0.0-0.3) H Aspartate Amino Transf (AST/SGOT) 26 U/L (15-37) Alanine Aminotransferase (ALT/SGPT) 14 U/L (12-78) Alkaline Phosphatase 72 U/L (46-116) Total Protein 7.6 G/DL (6.4-8.2) Albumin 2.2 G/DL (3.4-5.0) L Plan Problems: (1) Respiratory distress (2) Respiratory failure Assessment & Plan: 50-year-old female Covid positive respiratory insufficiency intubated on ventilatory support declining. Leukocytosis increase oxygen requirement. Vent settings per pulmonology reviewed identified and agree. Unfortunately further surgical invention at this time is not appropriate as patient is not a candidate and her current condition. Prognosis overall guarded. Tracheostomy can be considered in the future if recovering or shows improvement and requires unable to be weaned from ventilator support. Currently okay for nutritional optimization with NG tube. Will need significant monitoring for decubitus formation given patient's size and condition. Okay for air mattress tolerated. Turn every 2 hours as tolerated. Patient is otherwise critically ill and blood pressure labile. Will need to monitor close ly.Bilateral infiltrates are again demonstrated. Stable tube and line positions. will need trach will need to wean vent first (3) Hypoxia (4) Pneumonia due to COVID-19 virus Assessment & Plan: ++ as per pulm and ID (5) Diabetes mellitus out of control Assessment & Plan: DAILY ESTIMATED NEEDS: Needs based on Critical care, obesity 11-14kcal/kg actual body wt (140kg) kcals/kg 3225-0950 total kcals 1.5-2.0g prot/kg IBW (64.5kg) g protein/kg 96-129 g total protein 25-30ml/kg abw (83kg) mL/kg 2203-2717 total fluid mLs NUTRITION DIAGNOSIS: Swallowing difficulty R/T respiratory failure as evidenced by pt orally intubated and sedated, on OGT feeds. CURRENT TF: Vital 1.2 goal of 60ml/hr ENTERAL NUTRITION RECOMMENDATIONS: Vital AF 1.2 @ 60ml/hr x 24 hrs to provide 1440ml, 1728kcal, 108g prot, 1168ml free water * Maintain current critical care and carb controlled TF formula of Vital AF * TF @ goal meeds 100% est kcal/prot needs * HOB over 30 degrees/ water flush per MD TF may be lowered to 55ml/hr for improved BG control while maintaining Kcal and pro needs. ADDITIONAL RECOMMENDATIONS: * Calibrated bedscale wt * Monitor Propofol rate, need for TF adjustment-> now off * Monitor BGs closely : now improved, on novolog q 6rs + NISS * Monitor lytes- K elevated, monitor need for TF change * Rec bowel regimen- now w/ rectal tube . Az Devine Jul 12, 2020 12:43
[2020-07-12] MEDS: fentaNYL 2500mcg/NS 250ml 250 ML IV SCH (13:30)
--- NOTE | 2020-07-12 14:06 | Nephrology Progress Note ---
Assessment/Plan Problem List: (1) DEVENDRA (acute kidney injury) (2) Morbid obesity (3) Diabetes mellitus out of control (4) Pneumonia due to COVID-19 virus (5) Respiratory failure Assessment Acute renal failure Obstructive uropathy, clogged Lennon Respiratory failure COVID-19 pneumonia Morbid obesity Plan July 12: Full code. Labs reviewed. Normal electrolytes addressed. Continue per pulmonary. Medication list reviewed. July 11: Remains full code. On ventilator. FiO2 down to 65%. Renal parameters stable. Low magnesium addressed. Continue her current management. July 10: Full code. On ventilator. FiO2 70%. Hemoglobin mid sevens. Renal parameters stable. Continue per consultants. July 09: Labs reviewed. Renal parameters stable. FiO2 80% unchanged. Continue per pulmonary. July 08: Labs reviewed. Renal parameters and electrolytes stable. ABG suggestive of high PCO2. At this time patient is on FiO2 of 80%. Continue per pulmonary. Continue to monitor renal parameters. July 07: No CHEM panel drawn today. More potassium given. Continue to monitor renal parameters. Continue per consultants. Discussed with RAKEL Veras. July 06: Low potassium addressed. Albumin bolus for low BP given. Patient remains full code. Continue to monitor electrolytes and renal parameters. Continue per consultants. 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 July 05: Trach to vent. FiO2 80%. Renal parameters stable. PCO2 remains high at 44. Continue to monitor renal parameters. July 04: Patient now trach. Full code. Labs reviewed. Renal parameters stable. Low magnesium addressed. July 03: Intubated. Full code. Labs reviewed. Abnormal electrolytes addressed. Continue per consultants. Overall status unchanged. July 02: Remains intubated. Remains full code. Remains on FiO2 of 70%. Labs reviewed. Abnormal electrolytes addressed. Continue per pulmonary. July 01: Remains on 70% FiO2. Full code. Intubated on ventilator. Retaining CO2. Discussed with RN. Will do ABG today. Albumin bolus given. 1 dose of Diamox given. June 30: Status quo. Labs reviewed. Abnormal electrolytes addressed. Remains full code. Remains on ventilator. Magnesium sulfate 4 gram IVPB given. June 29: Full code. Intubated on ventilator. Labs reviewed. Stable from renal standpoint of view. Continue per consultants. June 28: Remains full code. Remains intubated on ventilator. Labs reviewed. Vitamin D supplement ordered. Continue to monitor renal parameters. Continue per consultants. June 27: Remains full code. Intubated on ventilator. Labs reviewed. Abnormal electrolyte addressed. Continue to monitor renal parameters and electrolytes. Continue per consultants. June 26: Labs reviewed. Remains full code. Remains intubated. Back on NGT feeding. Continue to monitor renal parameters. June 25: Labs reviewed. Renal parameters stable. Remains full code. Due to positional status patient could not be fed via NG tube. Starting TPN? Is being entertained. Continue per consultants. June 24: Labs reviewed. Renal parameters stable. Remains full code. Remains intubated on ventilator. Continue per consultants. June 23: Labs reviewed. Renal parameters stable. Discussed with RN. Abnormal electrolyte addressed. Remains full code. Remains on ventilator. Valentin ontinue per consultants. June 22: Labs reviewed. Low potassium addressed. Discussed with RAKEL Moran. Patient full code. Remains on ventilator. Continue to monitor renal parameters. June 21. Labs reviewed. Abnormal electrolyte addressed. Full code. Remains on ventilator. Medication list reviewed. Continue per pulmonary management. DC IV fluid, resume Lasix daily, check chest x-ray. June 20: Labs reviewed. Abnormal electrolytes. Patient remains full code. Continue per consultants. Noted and addressed June 19: Labs reviewed. Abnormal electrolytes noted and addressed. Remains intubated on ventilator. Remains full code. June 18: Labs reviewed. Remains intubated on ventilator. Full code. Abnormal electrolyte addressed. Continue as is. June 17: Labs reviewed. Abnormal electrolytes addressed. Patient remains full code and intubated on ventilator. Continue per consultants. Renal parameters are within normal limits. June 16: Labs reviewed. Potassium chloride replaced. Remains full code. Remains intubated on ventilator. Continue per consultants. Continue to monitor renal parameters. June 15: Labs reviewed. Serum creatinine 1. Stable from renal standpoint to view. Continue per consultants. June 14: Labs reviewed. Full code. Serum creatinine of 3.5 down to 1.4. Low potassium addressed. Continue per current treatment plan. Continue to monitor renal parameters. Midodrine started. Albumin bolus given. Previously: DC Lasix drip Increase Protonix dose Monitor renal parameters, electrolytes Per orders Subjective ROS Limited/Unobtainable: Yes Objective Objective Last 24 Hour Vital Signs Date Time Temp Pulse Resp B/P (MAP) Pulse Ox O2 Delivery O2 Flow Rate FiO2 07/12/20 13:30 30 93/63 Mechanical Ventilator 60 07/12/20 12:12 110 30 60 07/12/20 11:22 95 26 40 07/12/20 11:00 22 93/63 Mechanical Ventilator 50 07/12/20 11:00 26 93/63 Mechanical Ventilator 50 07/12/20 11:00 97 0 93/63 (73) 100 07/12/20 10:12 119 30 50 07/12/20 10:00 26 103/68 Mechanical Ventilator 50 07/12/20 10:00 26 103/68 Mechanical Ventilator 50 07/12/20 10:00 109 27 103/68 (80) 97 07/12/20 09:24 122 29 50 07/12/20 09:00 28 124/56 Mechanical Ventilator 50 07/12/20 09:00 119 28 128/69 (88) 97 07/12/20 08:55 36 124/56 Mechanical Ventilator 60 07/12/20 08:00 99.0 104 31 107/57 (74) 100 07/12/20 08:00 Mechanical Ventilator Mechanical Ventilator 07/12/20 08:00 29 107/57 Mechanical Ventilator 50 07/12/20 08:00 29 107/57 Mechanical Ventilator 50 07/12/20 08:00 110 07/12/20 08:00 55 07/12/20 07:20 116 36 60 07/12/20 07:00 122 33 124/59 (80) 76 07/12/20 07:00 30 124/50 Mechanical Ventilator 45 07/12/20 07:00 30 124/56 Mechanical Ventilator 45 07/12/20 06:30 80 17 07/12/20 06:00 30 116/76 Mechanical Ventilator 45.0 45 07/12/20 06:00 33 116/76 Mechanical Ventilator 45 07/12/20 06:00 118 35 116/76 (89) 90 07/12/20 05:00 20 124/56 Mechanical Ventilator 45 07/12/20 05:00 30 124/64 Mechanical Ventilator 45 07/12/20 05:00 117 34 124/64 (84) 85 07/12/20 05:00 117 34 124/64 (84) 85 07/12/20 04:00 55 07/12/20 04:00 Mechanical Ventilator Mechanical Ventilator 07/12/20 04:00 102 07/12/20 04:00 26 128/68 Mechanical Ventilator 45 07/12/20 04:00 29 113/62 Mechanical Ventilator 45 07/12/20 04:00 98.5 104 30 113/62 (79) 100 07/12/20 03:07 103 30 45 07/12/20 03:00 24 128/64 Mechanical Ventilator 50 07/12/20 03:00 29 113/62 45 07/12/20 03:00 109 29 128/68 (88) 96 07/12/20 02:00 109 23 119/70 (86) 100 07/12/20 02:00 23 119/70 Mechanical Ventilator 55 07/12/20 02:00 28 119/70 Mechanical Ventilator 55 07/12/20 01:00 28 104/64 Mechanical Ventilator 55 07/12/20 01:00 20 104/64 Mechanical Ventilator 55 07/12/20 01:00 91 26 104/64 (77) 100 07/12/20 00:00 98.6 104 24 108/53 (71) 96 07/12/20 00:00 55 07/12/20 00:00 104 24 108/53 (71) 96 07/12/20 00:00 28 108/58 Mechanical Ventilator 55 07/12/20 00:00 26 108/53 Mechanical Ventilator 55 07/12/20 00:00 100 07/12/20 00:00 Mechanical Ventilator Mechanical Ventilator 07/11/20 23:15 83 22 50 07/11/20 23:00 109 24 115/74 (88) 92 07/11/20 23:00 28 115/71 Mechanical Ventilator 55 07/11/20 23:00 26 115/75 Mechanical Ventilator 55 07/11/20 22:10 24 115/74 Mechanical Ventilator 55 07/11/20 22:10 20 125/87 Mechanical Ventilator 55 07/11/20 22:00 20 120/80 Mechanical Ventilator 55 07/11/20 22:00 28 123/87 Mechanical Ventilator 26 07/11/20 22:00 111 24 125/87 (100) 90 07/11/20 21:00 94 29 110/60 (77) 100 07/11/20 21:00 23 125/87 Mechanical Ventilator 50 07/11/20 21:00 26 110/60 Mechanical Ventilator 55 07/11/20 20:00 Mechanical Ventilator Mechanical Ventilator 07/11/20 20:00 98.8 108 24 123/73 (90) 90 07/11/20 20:00 28 110/60 Mechanical Ventilator 55 07/11/20 20:00 26 123/73 Mechanical Ventilator 55 07/11/20 20:00 55 07/11/20 20:00 102 07/11/20 19:30 84 25 50 07/11/20 19:00 85 25 101/60 (74) 100 07/11/20 19:00 25 101/60 Mechanical Ventilator 55 07/11/20 19:00 25 101/60 Mechanical Ventilator 55 07/11/20 18:00 113 23 120/71 (87) 83 07/11/20 18:00 24 120/71 Mechanical Ventilator 50 07/11/20 18:00 24 120/71 Mechanical Ventilator 55 07/11/20 17:00 24 102/61 Mechanical Ventilator 60 07/11/20 17:00 24 102/61 Mechanical Ventilator 60 07/11/20 17:00 80 22 102/61 (75) 100 07/11/20 16:00 97.9 91 29 104/53 (70) 98 07/11/20 16:00 55 07/11/20 16:00 Mechanical Ventilator Mechanical Ventilator 07/11/20 16:00 26 104/53 Mechanical Ventilator 60 07/11/20 16:00 26 104/53 Mechanical Ventilator 60 07/11/20 16:00 80 07/11/20 15:00 26 100/60 Mechanical Ventilator 60 07/11/20 15:00 26 100/60 Mechanical Ventilator 60 07/11/20 15:00 90 24 106/58 (74) 100 07/11/20 14:45 93 24 50 Intake and Output 07/11/20 07/12/20 19:00 07:00 Intake Total 530 ml 370 ml Output Total 560 ml 600 ml Balance -30 ml -230 ml IV Total 530 ml 370 ml Output Urine Total 560 ml 600 ml # Bowel Movements 20 Current Medications Medications (Trade) Dose Ordered Sig/Zelda Route PRN Reason Start Time Stop Time Status Last Admin Dose Admin Acetaminophen (Tylenol) 650 mg Q4H PRN NG Temp >100.5 06/29/20 10:15 07/29/20 10:14 07/08/20 18:26 Acetaminophen (Tylenol) 650 mg Q6H PRN NG Mild Pain (Pain Scale 1-3) 06/29/20 10:15 07/29/20 10:14 Chlorhexidine Gluconate (Inna-Hex 2%) 1 applic DAILY@2000 TOPIC 05/30/20 20:00 08/28/20 19:59 07/11/20 20:00 Dextrose (Dextrose 50%) 25 ml Q30M PRN IV Hypoglycemia 06/05/20 10:45 09/03/20 10:44 Dextrose (Dextrose 50%) 50 ml Q30M PRN IV Hypoglycemia 06/05/20 10:45 09/03/20 10:44 Fentanyl Citrate 250 ml @ 0 mls/hr Q24H IV 07/11/20 12:00 07/13/20 11:59 07/12/20 13:30 Furosemide (Lasix) 40 mg DAILY IV 06/22/20 09:00 07/22/20 08:59 07/12/20 08:53 Lansoprazole (Prevacid) 30 mg DAILY GT 07/10/20 09:00 08/09/20 08:59 07/12/20 08:52 Midazolam HCl 200 ml @ 0 mls/hr Q24H PRN IV To Patient Comfort 07/10/20 12:00 07/17/20 11:59 07/12/20 08:55 Midodrine (Pro-Amatine) 10 mg Q8HR GT 06/30/20 14:00 09/12/20 13:59 07/12/20 13:58 Vitamin D (Vitamin D) 5,000 unit DAILY GT 06/28/20 09:00 07/28/20 08:59 07/12/20 08:52 Laboratory Tests 07/12/20 03:30: White Blood Count 12.6H, Red Blood Count 3.20L, Hemoglobin 9.0L, Hematocrit 29.5L, Mean Corpuscular Volume 92, Mean Corpuscular Hemoglobin 28.3, Mean Corpuscular Hemoglobin Concent 30.6L, Red Cell Distribution Width 17.1H, Platelet Count 344, Mean Platelet Volume 7.1, Neutrophils (%) (Auto) 73.2, Lymphocytes (%) (Auto) 14.7L, Monocytes (%) (Auto) 7.7, Eosinophils (%) (Auto) 3.3H, Basophils (%) (Auto) 1.1, Sodium Level 137, Potassium Level 3.4L, Chloride Level 91L, Carbon Dioxide Level 38H, Anion Gap 8, Blood Urea Nitrogen 7, Creatinine 0.4L, Estimat Glomerular Filtration Rate > 60, Glucose Level 110H, Calcium Level 9.7, Phosphorus Level 3.4, Magnesium Level 1.8, Total Bilirubin 1.2H, Direct Bilirubin 0.4H, Aspartate Amino Transf (AST/SGOT) 26, Alanine Aminotransferase (ALT/SGPT) 14, Alkaline Phosphatase 72, Total Protein 7.6, Albumin 2.2L Height (Feet): 5 Height (Inches): 6.00 Weight (Pounds): 239 General Appearance: no apparent distress EENT: other - Trach to vent Cardiovascular: tachycardia Respiratory/Chest: decreased breath sounds Abdomen: distended Rigo Tyler MD Jul 12, 2020 14:06
--- NOTE | 2020-07-12 18:00 | NUR ---
NURSE NOTES: Pt was cleaned and repositioned. VS remain stable while maintained on Versed+Fentanyl drips for RASS -2 light sedation.
--- NOTE | 2020-07-12 18:08 | NUR ---
INSURANCE CLINICALS AND REVIEWS FAXED TO [facility] T: [phone] EXT [phone] F: [phone]
[2020-07-12] MEDS: Dyna-Hex 2% Top Sol 2oz TOPIC SCH (19:36)
--- NOTE | 2020-07-12 19:50 | NUR ---
NURSE NOTES: PATIENT SEDATED, ON ETT TO VENT, AC 15/TV600/FIO2 50%/PEEP 5, O2 SATURATION 99% NOTED, NGT INTACT AND PATENT, LOWER INTERMITTENT SUCTION STATUS, BROWN COLOR DISCHARGE OUTED, KEPT HOB 30 DEGREES AND ASPIRATION PRECAUTION, ABDOMEN SOFT, NON TENDER, RECTAL TUBE INTACT AND PATENT, F/C INTACT AND PATENT, ANNA COLOR URINE OUTED, TLC TO RIGHT FEMORAL, INTACT AND PATENT, ONGOING FENTANYL 100MCG/HR, VERSED 10MG/HR VIA TLC, KEPT RASS SCORE -2, MADE LOWER BED POSITION, ON BED ALARM AND LOCKED, WILL CONTINUE TO MONITOR.
--- NOTE | 2020-07-12 22:05 | NUR ---
NURSE NOTES: REPOSITIONED, ORAL CARE WAS DONE, RASS SCORE -2, NO DISTRESS NOTED.
[2020-07-13] VITALS (24 sets, daily range): BP systolic 91–124; BP diastolic 39–86
--- NOTE | 2020-07-13 00:15 | NUR ---
NURSE NOTES: PATIENT ASLEEP STATUS, KEPT NGT LOWER INTERMITTENT STATUS, NO DISCHARGE OUTED AT THIS TIME, WILL CONTINUE TO MONITOR.
--- NOTE | 2020-07-13 02:32 | NUR ---
NURSE NOTES: VSS, RASS SCORE -2 WITH FENTANYL 100MCG/HR AND VERSED 10MG/HR, NO DISTRESS NOTED AT THIS TIME.
--- NOTE | 2020-07-13 04:30 | NUR ---
NURSE NOTES: MORNING CARE WAS DONE, RECTAL TUBE INTACT AND PATENT.
[2020-07-13] MEDS: Versed 100mg/NS 200ml 200 ML IV PRN ×2 (05:03→14:58)
[2020-07-13] MEDS: Midodrine 10mg tab GT SCH ×3 (05:31→21:44)
--- NOTE | 2020-07-13 06:40 | NUR ---
NURSE NOTES: NO ACUTE DISTRESS NOTED AT THIS SHIFT.
[2020-07-13 07:19] LABS: BASOPHILS % (AUTO) 0.8 % (0.0-2.0); EOSINOPHILS % (AUTO) 5.4 % (0.0-3.0); HEMATOCRIT 30.7 % (37.0-47.0); HEMOGLOBIN 9.6 G/DL (12.0-16.0); LYMPHOCYTES % (AUTO) 19.5 % (20.0-45.0); MEAN CORPUSCULAR VOLUME 91 FL (80-99); MONOCYTES % (AUTO) 8.3 % (1.0-10.0); NEUTROPHILS % (AUTO) 66.1 % (45.0-75.0); PLATELET COUNT 321 K/UL (150-450); RED BLOOD COUNT 3.38 M/UL (4.20-5.40); WHITE BLOOD COUNT 11.7 K/UL (4.8-10.8)
--- NOTE | 2020-07-13 07:30 | NUR ---
NURSE HAND-OFF REPORT: Latest Vital Signs: Temperature 98.9 , Pulse 89 , B/P 100 /51 , Respiratory Rate 23 , O2 SAT 100 , Mechanical Ventilator, O2 Flow Rate . Vital Sign Comment: EKG Rhythm: Sinus Rhythm Rhythm change?: Jesus TOLLIVER Notified?: Jesus EDWARDS MD Response: Latest Meyers Fall Score: 70 Fall Risk: High Risk Safety Measures: Call light Within Reach, Bed Alarm Zone 1, Side Rails Side Rails x2, Bed position Low and Locked. Fall Precautions: Yellow Socks Report given to Raymon RIVERA RN.
--- NOTE | 2020-07-13 07:31 | NUR ---
NURSE NOTES: Patient received from Travis RN. Patient stable at this time with no s/sx of pain or distress. RR even and unlabored through trach. Ventilated as ordered. Versed and Fentanyl infusing. VSS. Side rails upx2, call light within reach, bed low and locked.
[2020-07-13 07:38] LABS: ANION GAP 6 mmol/L (5-15); BLOOD UREA NITROGEN 9 mg/dL (7-18); CARBON DIOXIDE 39 MMOL/L (21-32); CHLORIDE 95 MMOL/L (98-107); CREATININE 0.4 MG/DL (0.55-1.30); POTASSIUM 4.2 MMOL/L (3.5-5.1); SODIUM 139 MMOL/L (136-145)
[2020-07-13] MEDS: Lansoprazole 15mg cap GT SCH ×2 (08:49→10:10)
[2020-07-13] MEDS: Vitamin D 1000 units Tab GT SCH (08:50)
--- NOTE | 2020-07-13 09:16 | Hematology/Onc Progress Note ---
Assessment/Plan Assessment/Plan Covering Im Dr. Del Cid # Deep vein thrombosis of the right calf --> given onoing anemia and low plts --> consider ivc if bleeding--once stable, needs it placed --> once stable, for radiology and ivc filter placement # Thrombocytopenia is due to infection/underlying covid19+++ --> ABX ceftriaxone -->zosyn-->off --> on steriods likely cause of initial wbc --> per pulm --> plt 107->156-->192-->205 --> smear reviewed # Leukocytosis due to Pneumonia due to COVID-19 virus --> per pulm rx -> sp remdesivir --> wbc 11.9 # Anemia due to chronic disease --> hgb goal is >7 --> transfuse prn --> ferritin is >1000 --> hold off on iron --> 10-->9.8->9-->8-->8.2-->9.4-->8.1-->9.9-->8.7--> 9.7-->9.5-->8.1-->8.8->8.5->7.2-->7.8-->9 # Elevated ddimer due to covid19++ --> duplex legs is negative --> underlying covid rx # Hypoxia -> due to covid19 --> steriods as needed # Hypoxemia --> rx same as above # Respiratory failure --> on vent/trach --> per pulm # Diabetes mellitus out of control --> hgb a1c goal <7 # Poor prognosis # Dvt ppx ivc filter once more stable Appreciate consultation and dw RN Subjective Allergies: Coded Allergies: No Known Allergies (Unverified , 05/28/20) All Systems: reviewed and negative except above Subjective 06/10 nv, on vent, with ogt, on fentanyl and versed, plt stable 06/11 nv, vent adjusted is on ogt, meds reviewed 06/12 nv, vent, meds noted, labs noted, no bleeding, hgb 10.4 06/13 nv, is on vent, meds reviewed, no bleeding, cbc reviewed 06/14 nv, on vent, tachy, labs reviewed, gross hematuria, febrile overnight, abx 06/17 nv, on vent, labs noted, no major changes, feeling better overnight 06/18 nv, meds reviewed, labs noted, no major events, hgb 8.6 06/19 nv, remains intubated, with fluids, labs reviewed, meds noted 06/20 nv, intubated remains on restraints, meds noted as well, as labs 06/21 nv, remains on vent, on restraints, meds reviewed, labs noted 06/22: covering Dr. Del Cid no acute events 06/23 sedated, on vent, nv, intubated, meds reviewed, versed 06/24 nv, on vent, no night sweats, no bleeding, remains in icu 06/25 nv, on vent, icu, meds noted, no bleeding, comfortable 06/26 nv, on versed, icu, weaning parameters, labs noted 06/27 nv, overnight fighting vent, as per pulm fentanyl on board 06/28 nv, on vent, labs reviewed, as per pulm, meds noted 06/30 nv, icu, labs pending, is on fentanyl, versed, no new changes 07/01 nv, icu, is on vent, labs pending, no new changes per rn 07/02 nv, icu is on vent, labs noted, hgb is stable 07/03 nv, icu, is on vent, potential trrach when stable, cbc reviewed 07/04 icu, nv, labs are noted, stable for trach today dw Rn Dl 07/05 icu, nv, on vent, with ng and picc in place, labs noted, s/p trach 07/07 icu, nv, on tv, no bleeding, labs noted, meds reviewed 07/08 icu, nv, on tv, labs reviewed, meds noted, no bleeding 07/09 icu, nv, meds noted, no bleeding, blood transfusion was completed 07/10 icu, nv, labs ntoed, no bleeding, hgb improved, hgb 7.8 07/11 icu, nv, labs reviewed, hgb is improved, for ivcf if stabilizes 07/12 icu, nv, labs reviewed, meds noted, no bleeding, remains on vent 07/13 icu, on vent, nv, no bleeding, labs reviewed, no major events, bowen rn Objective Objective Current Medications Medications (Trade) Dose Ordered Sig/Zelda Route PRN Reason Start Time Stop Time Status Last Admin Dose Admin Acetaminophen (Tylenol) 650 mg Q4H PRN NG Temp >100.5 06/29/20 10:15 07/29/20 10:14 07/08/20 18:26 Acetaminophen (Tylenol) 650 mg Q6H PRN NG Mild Pain (Pain Scale 1-3) 06/29/20 10:15 07/29/20 10:14 Chlorhexidine Gluconate (Inna-Hex 2%) 1 applic DAILY@2000 TOPIC 05/30/20 20:00 08/28/20 19:59 07/12/20 19:36 Dextrose (Dextrose 50%) 25 ml Q30M PRN IV Hypoglycemia 06/05/20 10:45 09/03/20 10:44 Dextrose (Dextrose 50%) 50 ml Q30M PRN IV Hypoglycemia 06/05/20 10:45 09/03/20 10:44 Fentanyl Citrate 250 ml @ 0 mls/hr Q24H IV 07/11/20 12:00 07/13/20 11:59 07/12/20 13:30 Furosemide (Lasix) 40 mg DAILY IV 06/22/20 09:00 07/22/20 08:59 07/13/20 08:50 Lansoprazole (Prevacid) 30 mg DAILY GT 07/10/20 09:00 08/09/20 08:59 07/12/20 08:52 Midazolam HCl 200 ml @ 0 mls/hr Q24H PRN IV To Patient Comfort 07/10/20 12:00 07/17/20 11:59 07/13/20 05:03 Midodrine (Pro-Amatine) 10 mg Q8HR GT 06/30/20 14:00 09/12/20 13:59 07/13/20 05:31 Vitamin D (Vitamin D) 5,000 unit DAILY GT 06/28/20 09:00 07/28/20 08:59 07/13/20 08:50 Last 24 Hour Vital Signs Date Time Temp Pulse Resp B/P (MAP) Pulse Ox O2 Delivery O2 Flow Rate FiO2 07/13/20 08:00 96 07/13/20 08:00 60 07/13/20 07:00 96 35 60 07/13/20 07:00 89 23 100/51 (67) 100 07/13/20 07:00 23 100/51 Mechanical Ventilator 50 07/13/20 07:00 23 100/51 Mechanical Ventilator 50 07/13/20 06:30 87 22 07/13/20 06:00 30 124/45 Mechanical Ventilator 50 07/13/20 06:00 30 124/45 Mechanical Ventilator 50 07/13/20 06:00 99 30 124/45 (71) 100 07/13/20 05:03 28 99/39 Mechanical Ventilator 50 07/13/20 05:00 100 32 99/39 (59) 100 07/13/20 05:00 32 99/39 Mechanical Ventilator 50 07/13/20 05:00 32 99/39 Mechanical Ventilator 50 07/13/20 04:00 Mechanical Ventilator Mechanical Ventilator 07/13/20 04:00 31 96/59 Mechanical Ventilator 50 07/13/20 04:00 31 96/59 Mechanical Ventilator 50 07/13/20 04:00 108 07/13/20 04:00 50 07/13/20 04:00 98.9 108 31 96/59 (71) 100 07/13/20 03:45 99 30 50 07/13/20 03:00 25 100/63 Mechanical Ventilator 50 07/13/20 03:00 25 100/63 Mechanical Ventilator 50 07/13/20 03:00 90 25 100/63 (75) 97 07/13/20 02:00 32 108/59 Mechanical Ventilator 50 07/13/20 02:00 32 108/59 Mechanical Ventilator 50 07/13/20 02:00 107 32 108/59 (75) 95 07/13/21 01:00 103 27 108/66 (80) 95 07/13/20 01:00 27 108/66 Mechanical Ventilator 50 07/13/20 01:00 27 108/66 Mechanical Ventilator 50 07/13/20 00:00 Mechanical Ventilator Mechanical Ventilator 21 00:00 98.6 105 29 112/64 (80) 92 07/13/20 00:00 105 20 00:00 29 112/64 Mechanical Ventilator 50 07/13/20 00:00 29 112/64 Mechanical Ventilator 50 07/13/20 00:00 50 07/12/20 23:02 96 32 50 2 23:00 24 112/66 Mechanical Ventilator 50 07/12/20 23:00 24 112/66 Mechanical Ventilator 50 07/12/20 23:00 101 24 112/66 (81) 96 07/12/20 22:30 97 27 109/67 (81) 96 07/12/20 22:00 20 99/62 Mechanical Ventilator 50 07/12/20 22:00 20 99/62 Mechanical Ventilator 50 07/12/20 22:00 93 20 99/62 (74) 97 07/12/20 21:00 92 30 86/49 (61) 98 07/12/20 21:00 30 86/49 Mechanical Ventilator 50 07/12/20 21:00 30 86/49 Mechanical Ventilator 50 07/12/20 20:00 Mechanical Ventilator Mechanical Ventilator 07/12/20 20:00 97.6 90 24 89/53 (65) 98 07/12/20 20:00 50 07/12/20 20:00 24 89/53 Mechanical Ventilator 50 07/12/20 20:00 24 89/53 Mechanical Ventilator 50 07/12/20 19:28 87 07/12/20 19:28 81 31 50 07/12/20 19:01 20 106/63 Mechanical Ventilator 50 07/12/20 19:00 91 25 88/58 (68) 97 07/12/20 19:00 20 88/58 Mechanical Ventilator 50 07/12/20 18:00 80 26 99/58 (72) 99 07/12/20 18:00 20 106/63 Mechanical Ventilator 50 07/12/20 18:00 20 106/63 Mechanical Ventilator 50 07/12/20 17:00 24 116/60 Mechanical Ventilator 50 07/12/20 17:00 24 116/60 Mechanical Ventilator 50 07/12/20 17:00 77 18 99/54 (69) 100 07/12/20 16:00 80 07/12/20 16:00 50 07/12/20 16:00 21 96/53 Mechanical Ventilator 50 07/12/20 16:00 21 96/53 Mechanical Ventilator 50 07/12/20 16:00 Mechanical Ventilator Mechanical Ventilator 07/12/20 16:00 98.6 80 20 96/53 (67) 100 07/12/20 15:04 79 17 50 07/12/20 15:00 20 98/61 Mechanical Ventilator 50 07/12/20 15:00 20 98/61 Mechanical Ventilator 50 07/12/20 15:00 81 20 98/61 (73) 100 07/12/20 14:00 22 99/66 Mechanical Ventilator 50 07/12/20 14:00 22 99/66 Mechanical Ventilator 50 07/12/20 14:00 87 23 99/66 (77) 100 07/12/20 13:30 30 93/63 Mechanical Ventilator 45.0 60 07/12/20 13:00 20 86/61 Mechanical Ventilator 50 07/12/20 13:00 20 86/61 Mechanical Ventilator 50 07/12/20 13:00 96 14 86/61 (69) 100 07/12/20 12:12 110 30 60 07/12/20 12:00 113 07/12/20 12:00 25 105/64 Mechanical Ventilator 50 07/12/20 12:00 25 105/64 Mechanical Ventilator 50 07/12/20 12:00 Mechanical Ventilator Mechanical Ventilator 07/12/20 12:00 120 24 105/64 (78) 66 07/12/20 12:00 50 07/12/20 11:22 95 26 40 07/12/20 11:00 22 93/63 Mechanical Ventilator 50 07/12/20 11:00 26 93/63 Mechanical Ventilator 50 07/12/20 11:00 97 20 93/63 (73) 100 07/12/20 10:12 119 30 50 07/12/20 10:00 26 103/68 Mechanical Ventilator 50 07/12/20 10:00 26 103/68 Mechanical Ventilator 50 07/12/20 10:00 109 27 103/68 (80) 97 07/12/20 09:24 122 29 50 07/12/20 09:00 28 124/56 Mechanical Ventilator 50 07/12/20 09:00 119 28 128/69 (88) 97 07/12/20 08:55 36 124/56 Mechanical Ventilator 60 07/12/20 08:00 99.0 104 31 107/57 (74) 100 07/12/20 08:00 Mechanical Ventilator Mechanical Ventilator 07/12/20 08:00 29 107/57 Mechanical Ventilator 50 07/12/20 08:00 29 107/57 Mechanical Ventilator 50 07/12/20 08:00 110 07/12/20 08:00 55 07/12/20 07:20 116 36 60 07/12/20 07:00 122 33 124/59 (80) 76 07/12/20 07:00 30 124/50 Mechanical Ventilator 45 07/12/20 07:00 30 124/56 Mechanical Ventilator 45 07/12/20 06:30 80 17 07/12/20 06:00 30 116/76 Mechanical Ventilator 45.0 45 07/12/20 06:00 33 116/76 Mechanical Ventilator 45 07/12/20 06:00 118 35 116/76 (89) 90 07/12/20 05:00 20 124/56 Mechanical Ventilator 45 07/12/20 05:00 30 124/64 Mechanical Ventilator 45 07/12/20 05:00 117 34 124/64 (84) 85 07/12/20 05:00 117 34 124/64 (84) 85 07/12/20 04:00 55 07/12/20 04:00 Mechanical Ventilator Mechanical Ventilator 07/12/20 04:00 102 07/12/20 04:00 26 128/68 Mechanical Ventilator 45 07/12/20 04:00 29 113/62 Mechanical Ventilator 45 07/12/20 04:00 98.5 104 30 113/62 (79) 100 07/12/20 03:07 103 30 45 07/12/20 03:00 24 128/64 Mechanical Ventilator 50 07/12/20 03:00 29 113/62 45 07/12/20 03:00 109 29 128/68 (88) 96 07/12/20 02:00 109 23 119/70 (86) 100 07/12/20 02:00 23 119/70 Mechanical Ventilator 55 07/12/20 02:00 28 119/70 Mechanical Ventilator 55 07/12/20 01:00 28 104/64 Mechanical Ventilator 55 07/12/20 01:00 20 104/64 Mechanical Ventilator 55 07/12/20 01:00 91 26 104/64 (77) 100 07/12/20 00:00 98.6 104 24 108/53 (71) 96 07/12/20 00:00 55 07/12/20 00:00 104 24 108/53 (71) 96 07/12/20 00:00 28 108/58 Mechanical Ventilator 55 07/12/20 00:00 26 108/53 Mechanical Ventilator 55 07/12/20 00:00 100 07/12/20 00:00 Mechanical Ventilator Mechanical Ventilator 07/11/20 23:15 83 22 50 07/11/20 23:00 109 24 115/74 (88) 92 07/11/20 23:00 28 115/71 Mechanical Ventilator 55 07/11/20 23:00 26 115/75 Mechanical Ventilator 55 07/11/20 22:10 24 115/74 Mechanical Ventilator 55 07/11/20 22:10 20 125/87 Mechanical Ventilator 55 07/11/20 22:00 20 120/80 Mechanical Ventilator 55 07/11/20 22:00 28 123/87 Mechanical Ventilator 26 07/11/20 22:00 111 24 125/87 (100) 90 07/11/20 21:00 94 29 110/60 (77) 100 07/11/20 21:00 23 125/87 Mechanical Ventilator 50 07/11/20 21:00 26 110/60 Mechanical Ventilator 55 07/11/20 20:00 Mechanical Ventilator Mechanical Ventilator 07/11/20 20:00 98.8 108 24 123/73 (90) 90 07/11/20 20:00 28 110/60 Mechanical Ventilator 55 07/11/20 20:00 26 123/73 Mechanical Ventilator 55 07/11/20 20:00 55 07/11/20 20:00 102 07/11/20 19:30 84 25 50 07/11/20 19:00 85 25 101/60 (74) 100 07/11/20 19:00 25 101/60 Mechanical Ventilator 55 07/11/20 19:00 25 101/60 Mechanical Ventilator 55 07/11/20 18:00 113 23 120/71 (87) 83 07/11/20 18:00 24 120/71 Mechanical Ventilator 50 07/11/20 18:00 24 120/71 Mechanical Ventilator 55 07/11/20 17:00 24 102/61 Mechanical Ventilator 60 07/11/20 17:00 24 102/61 Mechanical Ventilator 60 07/11/20 17:00 80 22 102/61 (75) 100 07/11/20 16:00 97.9 91 29 104/53 (70) 98 07/11/20 16:00 55 07/11/20 16:00 Mechanical Ventilator Mechanical Ventilator 07/11/20 16:00 26 104/53 Mechanical Ventilator 60 07/11/20 16:00 26 104/53 Mechanical Ventilator 60 07/11/20 16:00 80 07/11/20 15:00 26 100/60 Mechanical Ventilator 60 07/11/20 15:00 26 100/60 Mechanical Ventilator 60 07/11/20 15:00 90 24 106/58 (74) 100 07/11/20 14:45 93 24 50 07/11/20 14:00 80 21 92/56 (68) 100 07/11/20 14:00 23 91/52 Mechanical Ventilator 60 07/11/20 14:00 23 91/52 Mechanical Ventilator 60 07/11/20 13:26 23 106/55 Mechanical Ventilator 65.0 50 07/11/20 13:25 23 91/52 60 07/11/20 13:00 80 23 91/52 (65) 100 07/11/20 13:00 23 116/78 Mechanical Ventilator 60 07/11/20 13:00 26 116/78 Mechanical Ventilator 60 07/11/20 12:00 50 07/11/20 12:00 98.1 81 23 100/53 (69) 99 07/11/20 12:00 23 106/55 Mechanical Ventilator 50 07/11/20 12:00 23 106/55 Mechanical Ventilator 50 07/11/20 12:00 Mechanical Ventilator Mechanical Ventilator 07/11/20 11:45 84 07/11/20 11:39 26 102/70 Mechanical Ventilator 50 07/11/20 11:15 78 22 50 07/11/20 11:00 23 106/55 Mechanical Ventilator 65 07/11/20 11:00 86 28 106/53 (70) 99 07/11/20 10:00 85 26 102/54 (70) 100 07/11/20 10:00 23 106/53 Mechanical Ventilator 65 07/11/20 10:00 23 106/53 Mechanical Ventilator 65 Intake and Output 07/12/20 07/13/20 19:00 07:00 Intake Total 315 ml 460 ml Output Total 390 ml 460 ml Balance -75 ml 0 ml IV Total 315 ml 360 ml Other 100 ml Output Urine Total 390 ml 450 ml Stool Total 10 ml Labs Test 07/10/20 12:12 07/10/20 18:26 07/11/20 02:50 07/11/20 08:15 POC Whole Blood Glucose 90 MG/DL (74-106) 95 MG/DL (74-106) White Blood Count 10.7 K/UL (4.8-10.8) Red Blood Count 3.18 M/UL (4.20-5.40) Hemoglobin 9.2 G/DL (12.0-16.0) Hematocrit 29.7 % (37.0-47.0) Mean Corpuscular Volume 93 FL (80-99) Mean Corpuscular Hemoglobin 29.0 PG (27.0-31.0) Mean Corpuscular Hemoglobin Concent 31.1 G/DL (32.0-36.0) Red Cell Distribution Width 17.9 % (11.6-14.8) Platelet Count 325 K/UL (150-450) Mean Platelet Volume 8.0 FL (6.5-10.1) Neutrophils (%) (Auto) 58.9 % (45.0-75.0) Lymphocytes (%) (Auto) 24.5 % (20.0-45.0) Monocytes (%) (Auto) 8.3 % (1.0-10.0) Eosinophils (%) (Auto) 7.3 % (0.0-3.0) Basophils (%) (Auto) 0.9 % (0.0-2.0) Sodium Level 139 MMOL/L (136-145) Potassium Level 3.7 MMOL/L (3.5-5.1) Chloride Level 95 MMOL/L (98-107) Carbon Dioxide Level 40 MMOL/L (21-32) Anion Gap 4 mmol/L (5-15) Blood Urea Nitrogen 9 mg/dL (7-18) Creatinine 0.4 MG/DL (0.55-1.30) Estimat Glomerular Filtration Rate > 60 mL/min (>60) Glucose Level 76 MG/DL (74-106) Calcium Level 9.7 MG/DL (8.5-10.1) Phosphorus Level 3.6 MG/DL (2.5-4.9) Magnesium Level 1.7 MG/DL (1.8-2.4) Total Bilirubin 1.5 MG/DL (0.2-1.0) Direct Bilirubin 0.3 MG/DL (0.0-0.3) Aspartate Amino Transf (AST/SGOT) 28 U/L (15-37) Alanine Aminotransferase (ALT/SGPT) 17 U/L (12-78) Alkaline Phosphatase 73 U/L (46-116) C-Reactive Protein, Quantitative 36.7 mg/dL (0.00-0.90) Pro-B-Type Natriuretic Peptide 454 pg/mL (0-125) Total Protein 8.0 G/DL (6.4-8.2) Albumin 2.4 G/DL (3.4-5.0) Globulin 5.6 g/dL Albumin/Globulin Ratio 0.4 (1.0-2.7) Arterial Blood pH 7.421 (7.350-7.450) Arterial Blood Partial Pressure CO2 65.2 mmHg (35.0-45.0) Arterial Blood Partial Pressure O2 64.5 mmHg (75.0-100.0) Arterial Blood HCO3 41.4 mmol/L (22.0-26.0) Arterial Blood Oxygen Saturation 91.2 % (95-100) Arterial Blood Base Excess 14.7 (-2-2) Jeremiah Test Positive Test 07/12/20 03:30 07/13/20 05:45 White Blood Count 12.6 K/UL (4.8-10.8) 11.7 K/UL (4.8-10.8) Red Blood Count 3.20 M/UL (4.20-5.40) 3.38 M/UL (4.20-5.40) Hemoglobin 9.0 G/DL (12.0-16.0) 9.6 G/DL (12.0-16.0) Hematocrit 29.5 % (37.0-47.0) 30.7 % (37.0-47.0) Mean Corpuscular Volume 92 FL (80-99) 91 FL (80-99) Mean Corpuscular Hemoglobin 28.3 PG (27.0-31.0) 28.5 PG (27.0-31.0) Mean Corpuscular Hemoglobin Concent 30.6 G/DL (32.0-36.0) 31.4 G/DL (32.0-36.0) Red Cell Distribution Width 17.1 % (11.6-14.8) 17.0 % (11.6-14.8) Platelet Count 344 K/UL (150-450) 321 K/UL (150-450) Mean Platelet Volume 7.1 FL (6.5-10.1) 8.4 FL (6.5-10.1) Neutrophils (%) (Auto) 73.2 % (45.0-75.0) 66.1 % (45.0-75.0) Lymphocytes (%) (Auto) 14.7 % (20.0-45.0) 19.5 % (20.0-45.0) Monocytes (%) (Auto) 7.7 % (1.0-10.0) 8.3 % (1.0-10.0) Eosinophils (%) (Auto) 3.3 % (0.0-3.0) 5.4 % (0.0-3.0) Basophils (%) (Auto) 1.1 % (0.0-2.0) 0.8 % (0.0-2.0) Sodium Level 137 MMOL/L (136-145) 139 MMOL/L (136-145) Potassium Level 3.4 MMOL/L (3.5-5.1) 4.2 MMOL/L (3.5-5.1) Chloride Level 91 MMOL/L (98-107) 95 MMOL/L (98-107) Carbon Dioxide Level 38 MMOL/L (21-32) 39 MMOL/L (21-32) Anion Gap 8 mmol/L (5-15) 6 mmol/L (5-15) Blood Urea Nitrogen 7 mg/dL (7-18) 9 mg/dL (7-18) Creatinine 0.4 MG/DL (0.55-1.30) 0.4 MG/DL (0.55-1.30) Estimat Glomerular Filtration Rate > 60 mL/min (>60) > 60 mL/min (>60) Glucose Level 110 MG/DL (74-106) 92 MG/DL (74-106) Calcium Level 9.7 MG/DL (8.5-10.1) 10.0 MG/DL (8.5-10.1) Phosphorus Level 3.4 MG/DL (2.5-4.9) Magnesium Level 1.8 MG/DL (1.8-2.4) Total Bilirubin 1.2 MG/DL (0.2-1.0) Direct Bilirubin 0.4 MG/DL (0.0-0.3) Aspartate Amino Transf (AST/SGOT) 26 U/L (15-37) Alanine Aminotransferase (ALT/SGPT) 14 U/L (12-78) Alkaline Phosphatase 72 U/L (46-116) Total Protein 7.6 G/DL (6.4-8.2) Albumin 2.2 G/DL (3.4-5.0) Height (Feet): 5 Height (Inches): 6.00 Weight (Pounds): 239 Objective GeNL: nv HEENT: ngt++ Pulm: vent/trach++ CV: rrr Abd: soft, nt, nd Ext: no cce Myron Condon MD Jul 13, 2020 09:16
--- NOTE | 2020-07-13 10:00 | NUR ---
NURSE NOTES: Patient stable.
--- NOTE | 2020-07-13 10:26 | Surgery Progress Note ---
Surgery Progress Note Subjective Procedure Performed right femoral central venous line insertion Symptoms: improved Additional Comments no acute events labs noted exam stable Objective Last 24 Hour Vital Signs Date Time Temp Pulse Resp B/P (MAP) Pulse Ox O2 Delivery O2 Flow Rate FiO2 07/13/20 08:00 96 07/13/20 08:00 60 07/13/20 07:00 96 35 60 07/13/20 07:00 89 23 100/51 (67) 100 07/13/20 07:00 23 100/51 Mechanical Ventilator 50 07/13/20 07:00 23 100/51 Mechanical Ventilator 50 07/13/20 06:30 87 22 07/13/20 06:00 30 124/45 Mechanical Ventilator 50 07/13/20 06:00 30 124/45 Mechanical Ventilator 50 07/13/20 06:00 99 30 124/45 (71) 100 07/13/20 05:03 28 99/39 Mechanical Ventilator 50 07/13/20 05:00 100 32 99/39 (59) 100 07/13/20 05:00 32 99/39 Mechanical Ventilator 50 07/13/20 05:00 32 99/39 Mechanical Ventilator 50 07/13/20 04:00 Mechanical Ventilator Mechanical Ventilator 07/13/20 04:00 31 96/59 Mechanical Ventilator 50 07/13/20 04:00 31 96/59 Mechanical Ventilator 50 07/13/20 04:00 108 07/13/20 04:00 50 07/13/20 04:00 98.9 108 31 96/59 (71) 100 07/13/20 03:45 99 30 50 07/13/20 03:00 25 100/63 Mechanical Ventilator 50 07/13/20 03:00 25 100/63 Mechanical Ventilator 50 07/13/20 03:00 90 25 100/63 (75) 97 07/13/20 02:00 32 108/59 Mechanical Ventilator 50 07/13/20 02:00 32 108/59 Mechanical Ventilator 50 07/13/20 02:00 107 32 108/59 (75) 95 07/13/20 01:00 103 27 108/66 (80) 95 21 01:00 27 108/66 Mechanical Ventilator 50 07/13/20 01:00 27 108/66 Mechanical Ventilator 50 07/13/20 00:00 Mechanical Ventilator Mechanical Ventilator 07/13/20 00:00 98.6 105 29 112/64 (80) 92 2/20/21 00:00 105 07/13/20 00:00 29 112/64 Mechanical Ventilator 50 07/13/20 00:00 29 112/64 Mechanical Ventilator 50 07/13/20 00:00 50 07/12/20 23:02 96 32 50 07/12/20 23:00 24 112/66 Mechanical Ventilator 50 07/12/20 23:00 24 112/66 Mechanical Ventilator 50 07/12/20 23:00 101 24 112/66 (81) 96 07/12/20 22:30 97 27 109/67 (81) 96 07/12/20 22:00 20 99/62 Mechanical Ventilator 50 07/12/20 22:00 20 99/62 Mechanical Ventilator 50 07/12/20 22:00 93 20 99/62 (74) 97 07/12/20 21:00 92 30 86/49 (61) 98 07/12/20 21:00 30 86/49 Mechanical Ventilator 50 07/12/20 21:00 30 86/49 Mechanical Ventilator 50 07/12/20 20:00 Mechanical Ventilator Mechanical Ventilator 07/12/20 20:00 97.6 90 24 89/53 (65) 98 07/12/20 20:00 50 07/12/20 20:00 24 89/53 Mechanical Ventilator 50 07/12/20 20:00 24 89/53 Mechanical Ventilator 50 07/12/20 19:28 87 07/12/20 19:28 81 31 50 07/12/20 19:01 20 106/63 Mechanical Ventilator 50 07/12/20 19:00 91 25 88/58 (68) 97 07/12/20 19:00 20 88/58 Mechanical Ventilator 50 07/12/20 18:00 80 26 99/58 (72) 99 07/12/20 18:00 20 106/63 Mechanical Ventilator 50 07/12/20 18:00 20 106/63 Mechanical Ventilator 50 07/12/20 17:00 24 116/60 Mechanical Ventilator 50 07/12/20 17:00 24 116/60 Mechanical Ventilator 50 07/12/20 17:00 77 18 99/54 (69) 100 07/12/20 16:00 80 07/12/20 16:00 50 07/12/20 16:00 21 96/53 Mechanical Ventilator 50 07/12/20 16:00 21 96/53 Mechanical Ventilator 50 07/12/20 16:00 Mechanical Ventilator Mechanical Ventilator 07/12/20 16:00 98.6 80 20 96/53 (67) 100 07/12/20 15:04 79 17 50 07/12/20 15:00 20 98/61 Mechanical Ventilator 50 07/12/20 15:00 20 98/61 Mechanical Ventilator 50 07/12/20 15:00 81 20 98/61 (73) 100 07/12/20 14:00 22 99/66 Mechanical Ventilator 50 07/12/20 14:00 22 99/66 Mechanical Ventilator 50 07/12/20 14:00 87 23 99/66 (77) 100 07/12/20 13:30 30 93/63 Mechanical Ventilator 45.0 60 07/12/20 13:00 20 86/61 Mechanical Ventilator 50 07/12/20 13:00 20 86/61 Mechanical Ventilator 50 07/12/20 13:00 96 14 86/61 (69) 100 07/12/20 12:12 110 30 60 07/12/20 12:00 113 07/12/20 12:00 25 105/64 Mechanical Ventilator 50 07/12/20 12:00 25 105/64 Mechanical Ventilator 50 07/12/20 12:00 Mechanical Ventilator Mechanical Ventilator 07/12/20 12:00 120 24 105/64 (78) 66 07/12/20 12:00 50 07/12/20 11:22 95 26 40 07/12/20 11:00 22 93/63 Mechanical Ventilator 50 07/12/20 11:00 26 93/63 Mechanical Ventilator 50 07/12/20 11:00 97 20 93/63 (73) 100 I&O Intake and Output 07/12/20 07/13/20 19:00 07:00 Intake Total 315 ml 460 ml Output Total 390 ml 460 ml Balance -75 ml 0 ml IV Total 315 ml 360 ml Other 100 ml Output Urine Total 390 ml 450 ml Stool Total 10 ml Dressing: other Wound: other Cardiovascular: RSR Respiratory: decreased breath sounds Abdomen: soft, non-tender, present bowel sounds, decreased bowel sounds Extremities: no edema, no tenderness, no cyanosis Laboratory Tests Test 07/13/20 05:45 White Blood Count 11.7 K/UL (4.8-10.8) H Red Blood Count 3.38 M/UL (4.20-5.40) L Hemoglobin 9.6 G/DL (12.0-16.0) L Hematocrit 30.7 % (37.0-47.0) L Mean Corpuscular Volume 91 FL (80-99) Mean Corpuscular Hemoglobin 28.5 PG (27.0-31.0) Mean Corpuscular Hemoglobin Concent 31.4 G/DL (32.0-36.0) L Red Cell Distribution Width 17.0 % (11.6-14.8) H Platelet Count 321 K/UL (150-450) Mean Platelet Volume 8.4 FL (6.5-10.1) Neutrophils (%) (Auto) 66.1 % (45.0-75.0) Lymphocytes (%) (Auto) 19.5 % (20.0-45.0) L Monocytes (%) (Auto) 8.3 % (1.0-10.0) Eosinophils (%) (Auto) 5.4 % (0.0-3.0) H Basophils (%) (Auto) 0.8 % (0.0-2.0) Sodium Level 139 MMOL/L (136-145) Potassium Level 4.2 MMOL/L (3.5-5.1) Chloride Level 95 MMOL/L (98-107) L Carbon Dioxide Level 39 MMOL/L (21-32) H Anion Gap 6 mmol/L (5-15) Blood Urea Nitrogen 9 mg/dL (7-18) Creatinine 0.4 MG/DL (0.55-1.30) L Estimat Glomerular Filtration Rate > 60 mL/min (>60) Glucose Level 92 MG/DL (74-106) Calcium Level 10.0 MG/DL (8.5-10.1) Plan Problems: (1) Respiratory distress (2) Respiratory failure Assessment & Plan: 50-year-old female Covid positive respiratory insufficiency intubated on ventilatory support declining. Leukocytosis increase oxygen requirement. Vent settings per pulmonology reviewed identified and agree. Unfortunately further surgical invention at this time is not appropriate as patient is not a candidate and her current condition. Prognosis overall guarded. Tracheostomy can be considered in the future if recovering or shows improvement and requires unable to be weaned from ventilator support. Currently okay for nutritional optimization with NG tube. Will need significant monitoring for decubitus formation given patient's size and condition. Okay for air mattress tolerated. Turn every 2 hours as tolerated. Patient is otherwise critically ill and blood pressure labile. Will need to monitor closely.Bilateral infiltrates are again demonstrated. Stable tube and line positions. will need trach will need to wean vent first (3) Hypoxia (4) Pneumonia due to COVID-19 virus Assessment & Plan: ++ as per pulm and ID (5) Diabetes mellitus out of control Assessment & Plan: DAILY ESTIMATED NEEDS: Needs based on Critical care, obesity 11-14kcal/kg actual body wt (140kg) kcals/kg 0942-0376 total kcals 1.5-2.0g prot/kg IBW (64.5kg) g protein/kg 96-129 g total protein 25-30ml/kg abw (83kg) mL/kg 5388-1957 total fluid mLs NUTRITION DIAGNOSIS: Swallowing difficulty R/T respiratory failure as evidenced by pt orally intubated and sedated, on OGT feeds. CURRENT TF: Vital 1.2 goal of 60ml/hr ENTERAL NUTRITION RECOMMENDATIONS: Vital AF 1.2 @ 60ml/hr x 24 hrs to provide 1440ml, 1728kcal, 108g prot, 1168ml free water * Maintain current critical care and carb controlled TF formula of Vital AF * TF @ goal meeds 100% est kcal/prot needs * HOB over 30 degrees/ water flush per MD TF may be lowered to 55ml/hr for improved BG control while maintaining Kcal and pro needs. ADDITIONAL RECOMMENDATIONS: * Calibrated bedscale wt * Monitor Propofol rate, need for TF adjustment-> now off * Monitor BGs closely : now improved, on novolog q 6rs + NISS * Monitor lytes- K elevated, monitor need for TF change * Rec bowel regimen- now w/ rectal tube . Az Devine Jul 13, 2020 10:26
--- NOTE | 2020-07-13 10:50 | NUR ---
NURSE NOTES: Dr. Nava at bedside. Air leak noted with audible moaning from patient. Dr. Devine notified.
--- NOTE | 2020-07-13 11:08 | NUR ---
CASE MANAGEMENT:REVIEW 07/13/20 SI: COVID PNEUMONIA POD #4...S/P TRACHEOSTOMY AND BRONCHOSCOPY 97.9 96 30 101/42 100% ON VENT SUPPORT W/60% FIO2 PEEP~5.0 WBC+12.6 CO2+38 IS:VERSED GTT FENTANYL GTT IV LASIX QD LOVENOX SQ QD IVF@50/HR MIDODRINE NG Q8HRS : ICU STATUS DCP: FROM HOME PLAN: NEEDS PEG PLACEMENT WILL NEED SUBACUTE PLACEMENT OR LTACH
--- NOTE | 2020-07-13 11:44 | Nephrology Progress Note ---
Assessment/Plan Problem List: (1) DEVENDRA (acute kidney injury) (2) Morbid obesity (3) Diabetes mellitus out of control (4) Pneumonia due to COVID-19 virus (5) Respiratory failure Assessment Acute renal failure Obstructive uropathy, clogged Lennon Respiratory failure COVID-19 pneumonia Morbid obesity Plan July 13: FiO2 60% unchanged. Labs reviewed. Renal parameters stable. Medication list reviewed. Continue per consultants. July 12: Full code. Labs reviewed. Normal electrolytes addressed. Continue per pulmonary. Medication list reviewed. July 11: Remains full code. On ventilator. FiO2 down to 65%. Renal parameters stable. Low magnesium addressed. Continue her current management. July 10: Full code. On ventilator. FiO2 70%. Hemoglobin mid sevens. Renal parameters stable. Continue per consultants. July 09: Labs reviewed. Renal parameters stable. FiO2 80% unchanged. Continue per pulmonary. July 08: Labs reviewed. Renal parameters and electrolytes stable. ABG suggestive of high PCO2. At this time patient is on FiO2 of 80%. Continue per pulmonary. Continue to monitor renal parameters. July 07: No CHEM panel drawn today. More potassium given. Continue to monitor renal parameters. Continue per consultants. Discussed with RAKEL Veras. July 06: Low potassium addressed. Albumin bolus for low BP given. Patient remains full code. Continue to monitor electrolytes and renal parameters. Continue per consultants. Hemoglobin low today, transfusion per velvet cutter. July 05: Trach to vent. FiO2 80%. Renal parameters stable. PCO2 remains high at 44. Continue to monitor renal parameters. July 04: Patient now trach. Full code. Labs reviewed. Renal parameters stable. Low magnesium addressed. July 03: Intubated. Full code. Labs reviewed. Abnormal electrolytes addressed. Continue per consultants. Overall status unchanged. July 02: Remains intubated. Remains full code. Remains on FiO2 of 70%. Labs reviewed. Abnormal electrolytes addressed. Continue per pulmonary. July 01: Remains on 70% FiO2. Full code. Intubated on ventilator. Retaining CO2. Discussed with RN. Will do ABG today. Albumin bolus given. 1 dose of Diamox given. June 30: Status quo. Labs reviewed. Abnormal electrolytes addressed. Remains full code. Remains on ventilator. Magnesium sulfate 4 gram IVPB given. June 29: Full code. Intubated on ventilator. Labs reviewed. Stable from renal standpoint of view. Continue per consultants. June 28: Remains full code. Remains intubated on ventilator. Labs reviewed. Vitamin D supplement ordered. Continue to monitor renal parameters. Continue per consultants. June 27: Remains full code. Intubated on ventilator. Labs reviewed. Abnormal electrolyte addressed. Continue to monitor renal parameters and electrolytes. Continue per consultants. June 26: Labs reviewed. Remains full code. Remains intubated. Back on NGT feeding. Continue to monitor renal parameters. June 25: Labs reviewed. Renal parameters stable. Remains full code. Due to positional status patient could not be fed via NG tube. Starting TPN? Is being entertained. Continue per consultants. June 24: Labs reviewed. Renal parameters stable. Remains full code. Remains intubated on ventilator. Continue per consultants. June 23: Labs reviewed. Renal parameters stable. Discussed with RN. Abnormal electrolyte addressed. Remains full code. Remains on ventilator. Continue per consultants. June 22: Labs reviewed. Low potassium addressed. Discussed with RAKEL Moran. Patient full code. Remains on ventilator. Continue to monitor renal parameters. June 21. Labs reviewed. Abnormal electrolyte addressed. Full code. Remains on ventilator. Medication list reviewed. Continue per pulmonary management. DC IV fluid, resume Lasix daily, check chest x-ray. June 20: Labs reviewed. Abnormal electrolytes. Patient remains full code. Continue per consultants. Noted and addressed June 19: Labs reviewed. Abnormal electrolytes noted and addressed. Remains intubated on ventilator. Remains full code. June 18: Labs reviewed. Remains intubated on ventilator. Full code. Abnormal electrolyte addressed. Continue as is. June 17: Labs reviewed. Abnormal electrolytes addressed. Patient remains full code and intubated on ventilator. Continue per consultants. Renal parameters are within normal limits. June 16: Labs reviewed. Potassium chloride replaced. Remains full code. Remains intubated on ventilator. Continue per consultants. Continue to monitor renal parameters. June 15: Labs reviewed. Serum creatinine 1. Stable from renal standpoint to view. Continue per consultants. June 14: Labs reviewed. Full code. Serum creatinine of 3.5 down to 1.4. Low potassium addressed. Continue per current treatment plan. Continue to monitor renal parameters. Midodrine started. Albumin bolus given. Previously: DC Lasix drip Increase Protonix dose Monitor renal parameters, electrolytes Per orders Subjective ROS Limited/Unobtainable: Yes Objective Objective Last 24 Hour Vital Signs Date Time Temp Pulse Resp B/P (MAP) Pulse Ox O2 Delivery O2 Flow Rate FiO2 07/13/20 11:00 97 30 100/52 (68) 99 07/13/20 10:00 98.1 100 27 106/54 (71) 99 07/13/20 10:00 30 106/54 Mechanical Ventilator 60 07/13/20 10:00 30 106/54 Mechanical Ventilator 60 07/13/20 09:00 90 26 99/86 (90) 99 07/13/20 09:00 26 99/86 Mechanical Ventilator 60 07/13/20 09:00 26 99/86 Mechanical Ventilator 60 07/13/20 08:00 96 07/13/20 08:00 60 07/13/20 08:00 97.9 94 30 101/42 (61) 100 07/13/20 08:00 25 101/42 Mechanical Ventilator 60 07/13/20 08:00 25 101/42 Mechanical Ventilator 60 07/13/20 08:00 Mechanical Ventilator Mechanical Ventilator 07/13/20 07:00 96 35 60 07/13/20 07:00 89 23 100/51 (67) 100 07/13/20 07:00 23 100/51 Mechanical Ventilator 50 07/13/20 07:00 23 100/51 Mechanical Ventilator 50 07/13/20 06:30 87 22 07/13/20 06:00 30 124/45 Mechanical Ventilator 50 07/13/20 06:00 30 124/45 Mechanical Ventilator 50 07/13/20 06:00 99 30 124/45 (71) 100 07/13/ 05:03 28 99/39 Mechanical Ventilator 50 07/13/20 05:00 100 32 99/39 (59) 100 07/13/20 05:00 32 99/39 Mechanical Ventilator 50 07/13/20 05:00 32 99/39 Mechanical Ventilator 50 21 04:00 Mechanical Ventilator Mechanical Ventilator 07/13/20 04:00 31 96/59 Mechanical Ventilator 50 07/13/20 04:00 31 96/59 Mechanical Ventilator 50 07/13/20 04:00 108 07/13/21 04:00 50 07/13/20 04:00 98.9 108 31 96/59 (71) 100 07/13/20 03:45 99 30 50 07/13/20 03:00 25 100/63 Mechanical Ventilator 50 07/13/20 03:00 25 100/63 Mechanical Ventilator 50 07/13/20 03:00 90 25 100/63 (75) 97 07/13/20 02:00 32 108/59 Mechanical Ventilator 50 07/13/20 02:00 32 108/59 Mechanical Ventilator 50 07/13/20 02:00 107 32 108/59 (75) 95 07/13/20 01:00 103 27 108/66 (80) 95 07/13/20 01:00 27 108/66 Mechanical Ventilator 50 07/13/20 01:00 27 108/66 Mechanical Ventilator 50 07/13/20 00:00 Mechanical Ventilator Mechanical Ventilator 07/13/20 00:00 98.6 105 29 112/64 (80) 92 07/13/20 00:00 105 07/13/20 00:00 29 112/64 Mechanical Ventilator 50 07/13/20 00:00 29 112/64 Mechanical Ventilator 50 07/13/20 00:00 50 07/12/20 23:02 96 32 50 07/12/20 23:00 24 112/66 Mechanical Ventilator 50 07/12/20 23:00 24 112/66 Mechanical Ventilator 50 07/12/20 23:00 101 24 112/66 (81) 96 07/12/20 22:30 97 27 109/67 (81) 96 07/12/20 22:00 20 99/62 Mechanical Ventilator 50 07/12/20 22:00 20 99/62 Mechanical Ventilator 50 07/12/20 22:00 93 20 99/62 (74) 97 07/12/20 21:00 92 30 86/49 (61) 98 07/12/20 21:00 30 86/49 Mechanical Ventilator 50 07/12/20 21:00 30 86/49 Mechanical Ventilator 50 07/12/20 20:00 Mechanical Ventilator Mechanical Ventilator 07/12/20 20:00 97.6 90 24 89/53 (65) 98 07/12/20 20:00 50 07/12/20 20:00 24 89/53 Mechanical Ventilator 50 07/12/20 20:00 24 89/53 Mechanical Ventilator 50 07/12/20 19:28 87 07/12/20 19:28 81 31 50 07/12/20 19:01 20 106/63 Mechanical Ventilator 50 07/12/20 19:00 91 25 88/58 (68) 97 07/12/20 19:00 20 88/58 Mechanical Ventilator 50 07/12/20 18:00 80 26 99/58 (72) 99 07/12/20 18:00 20 106/63 Mechanical Ventilator 50 07/12/20 18:00 20 106/63 Mechanical Ventilator 50 07/12/20 17:00 24 116/60 Mechanical Ventilator 50 07/12/20 17:00 24 116/60 Mechanical Ventilator 50 07/12/20 17:00 77 18 99/54 (69) 100 07/12/20 16:00 80 07/12/20 16:00 50 07/12/20 16:00 21 96/53 Mechanical Ventilator 50 07/12/20 16:00 21 96/53 Mechanical Ventilator 50 07/12/20 16:00 Mechanical Ventilator Mechanical Ventilator 07/12/20 16:00 98.6 80 20 96/53 (67) 100 07/12/20 15:04 79 17 50 07/12/20 15:00 20 98/61 Mechanical Ventilator 50 07/12/20 15:00 20 98/61 Mechanical Ventilator 50 07/12/20 15:00 81 20 98/61 (73) 100 07/12/20 14:00 22 99/66 Mechanical Ventilator 50 07/12/20 14:00 22 99/66 Mechanical Ventilator 50 07/12/20 14:00 87 23 99/66 (77) 100 07/12/20 13:30 30 93/63 Mechanical Ventilator 45.0 60 07/12/20 13:00 20 86/61 Mechanical Ventilator 50 07/12/20 13:00 20 86/61 Mechanical Ventilator 50 07/12/20 13:00 96 14 86/61 (69) 100 07/12/20 12:12 110 30 60 07/12/20 12:00 113 07/12/20 12:00 25 105/64 Mechanical Ventilator 50 07/12/20 12:00 25 105/64 Mechanical Ventilator 50 07/12/20 12:00 Mechanical Ventilator Mechanical Ventilator 07/12/20 12:00 120 24 105/64 (78) 66 07/12/20 12:00 50 Intake and Output 07/12/20 07/13/20 19:00 07:00 Intake Total 315 ml 460 ml Output Total 390 ml 460 ml Balance -75 ml 0 ml IV Total 315 ml 360 ml Other 100 ml Output Urine Total 390 ml 450 ml Stool Total 10 ml Current Medications Medications (Trade) Dose Ordered Sig/Zelda Route PRN Reason Start Time Stop Time Status Last Admin Dose Admin Acetaminophen (Tylenol) 650 mg Q4H PRN NG Temp >100.5 06/29/20 10:15 07/29/20 10:14 07/08/20 18:26 Acetaminophen (Tylenol) 650 mg Q6H PRN NG Mild Pain (Pain Scale 1-3) 06/29/20 10:15 07/29/20 10:14 Chlorhexidine Gluconate (Inna-Hex 2%) 1 applic DAILY@2000 TOPIC 05/30/20 20:00 08/28/20 19:59 07/12/20 19:36 Dextrose (Dextrose 50%) 25 ml Q30M PRN IV Hypoglycemia 06/05/20 10:45 09/03/20 10:44 Dextrose (Dextrose 50%) 50 ml Q30M PRN IV Hypoglycemia 06/05/20 10:45 09/03/20 10:44 Fentanyl Citrate 250 ml @ 0 mls/hr Q24H IV 07/11/20 12:00 07/13/20 13:59 07/12/20 13:30 Fentanyl Citrate 250 ml @ 0 mls/hr Q24H IV 07/13/20 14:00 07/15/20 13:59 Furosemide (Lasix) 40 mg DAILY IV 06/22/20 09:00 07/22/20 08:59 07/13/20 08:50 Lansoprazole (Prevacid) 30 mg DAILY GT 07/10/20 09:00 08/09/20 08:59 07/13/20 10:10 Midazolam HCl 200 ml @ 0 mls/hr Q24H PRN IV To Patient Comfort 07/10/20 12:00 07/17/20 11:59 07/13/20 05:03 Midodrine (Pro-Amatine) 10 mg Q8HR GT 06/30/20 14:00 09/12/20 13:59 07/13/20 05:31 Vitamin D (Vitamin D) 5,000 unit DAILY GT 06/28/20 09:00 07/28/20 08:59 07/13/20 08:50 Laboratory Tests 07/13/20 05:45: White Blood Count 11.7H, Red Blood Count 3.38L, Hemoglobin 9.6L, Hematocrit 30. 7L, Mean Corpuscular Volume 91, Mean Corpuscular Hemoglobin 28.5, Mean Corpuscular Hemoglobin Concent 31.4L, Red Cell Distribution Width 17.0H, Platelet Count 321, Mean Platelet Volume 8.4, Neutrophils (%) (Auto) 66.1, Lymphocytes (%) (Auto) 19.5L, Monocytes (%) (Auto) 8.3, Eosinophils (%) (Auto) 5.4H, Basophils (%) (Auto) 0.8, Sodium Level 139, Potassium Level 4.2, Chloride Level 95L, Carbon Dioxide Level 39H, Anion Gap 6, Blood Urea Nitrogen 9, Creatinine 0.4L, Estimat Glomerular Filtration Rate > 60, Glucose Level 92, Calcium Level 10.0 Height (Feet): 5 Height (Inches): 6.00 Weight (Pounds): 239 General Appearance: no apparent distress EENT: other - Trach to vent Cardiovascular: tachycardia Respiratory/Chest: decreased breath sounds Abdomen: distended Rigo Tyler MD Jul 13, 2020 11:44
--- NOTE | 2020-07-13 11:52 | Pulmonology Progress Note ---
Subjective ROS Limited/Unobtainable: Yes Interval Events: S/p tracheostomy 07/04/20 Constitutional: Reports: fever, other - T=100 HEENT: Repors: no symptoms Respiratory: Reports: no symptoms Cardiovascular: Reports: no symptoms Gastrointestinal/Abdominal: Reports: no symptoms Genitourinary: Reports: no symptoms Allergies: Coded Allergies: No Known Allergies (Unverified , 05/28/20) All Systems: reviewed and negative except above Objective Last 24 Hour Vital Signs Date Time Temp Pulse Resp B/P (MAP) Pulse Ox O2 Delivery O2 Flow Rate FiO2 07/13/20 11:00 97 30 100/52 (68) 99 07/13/20 10:00 98.1 100 27 106/54 (71) 99 07/13/20 10:00 30 106/54 Mechanical Ventilator 60 07/13/20 10:00 30 106/54 Mechanical Ventilator 60 07/13/20 09:00 90 26 99/86 (90) 99 07/13/20 09:00 26 99/86 Mechanical Ventilator 60 07/13/20 09:00 26 99/86 Mechanical Ventilator 60 07/13/20 08:00 96 07/13/20 08:00 60 07/13/20 08:00 97.9 94 30 101/42 (61) 100 07/13/20 08:00 25 101/42 Mechanical Ventilator 60 07/13/20 08:00 25 101/42 Mechanical Ventilator 60 07/13/20 08:00 Mechanical Ventilator Mechanical Ventilator 07/13/20 07:00 96 35 60 07/13/20 07:00 89 23 100/51 (67) 100 07/13/20 07:00 23 100/51 Mechanical Ventilator 50 07/13/20 07:00 23 100/51 Mechanical Ventilator 50 07/13/20 06:30 87 22 07/13/20 06:00 30 124/45 Mechanical Ventilator 50 07/13/20 06:00 30 124/45 Mechanical Ventilator 50 07/13/20 06:00 99 30 124/45 (71) 100 07/13/20 05:03 28 99/39 Mechanical Ventilator 50 07/13/20 05:00 100 32 99/39 (59) 100 07/13/20 05:00 32 99/39 Mechanical Ventilator 50 07/13/20 05:00 32 99/39 Mechanical Ventilator 50 07/13/20 04:00 Mechanical Ventilator Mechanical Ventilator 07/13/20 04:00 31 96/59 Mechanical Ventilator 50 07/13/20 04:00 31 96/59 Mechanical Ventilator 50 07/13/20 04:00 108 07/13/20 04:00 50 07/13/20 04:00 98.9 108 31 96/59 (71) 100 07/13/20 03:45 99 30 50 07/13/20 03:00 25 100/63 Mechanical Ventilator 50 07/13/20 03:00 25 100/63 Mechanical Ventilator 50 07/13/20 03:00 90 25 100/63 (75) 97 07/13/20 02:00 32 108/59 Mechanical Ventilator 50 07/13/20 02:00 32 108/59 Mechanical Ventilator 50 07/13/20 02:00 107 32 108/59 (75) 95 07/13/20 01:00 103 27 108/66 (80) 95 07/13/20 01:00 27 108/66 Mechanical Ventilator 50 07/13/20 01:00 27 108/66 Mechanical Ventilator 50 07/13/20 00:00 Mechanical Ventilator Mechanical Ventilator 07/13/20 00:00 98.6 105 29 112/64 (80) 92 07/13/20 00:00 105 07/13/20 00:00 29 112/64 Mechanical Ventilator 50 07/13/20 00:00 29 112/64 Mechanical Ventilator 50 07/13/20 00:00 50 07/12/20 23:02 96 32 50 07/12/20 23:00 24 112/66 Mechanical Ventilator 50 07/12/20 23:00 24 112/66 Mechanical Ventilator 50 07/12/20 23:00 101 24 112/66 (81) 96 07/12/20 22:30 97 27 109/67 (81) 96 07/12/20 22:00 20 99/62 Mechanical Ventilator 50 07/12/20 22:00 20 99/62 Mechanical Ventilator 50 07/12/20 22:00 93 20 99/62 (74) 97 07/12/20 21:00 92 30 86/49 (61) 98 07/12/20 21:00 30 86/49 Mechanical Ventilator 50 07/12/20 21:00 30 86/49 Mechanical Ventilator 50 07/12/20 20:00 Mechanical Ventilator Mechanical Ventilator 07/12/20 20:00 97.6 90 24 89/53 (65) 98 2/19/21 20:00 50 07/12/20 20:00 24 89/53 Mechanical Ventilator 50 07/12/20 20:00 24 89/53 Mechanical Ventilator 50 07/12/20 19:28 87 07/12/20 19:28 81 31 50 07/12/20 19:01 20 106/63 Mechanical Ventilator 50 07/12/20 19:00 91 25 88/58 (68) 97 07/12/20 19:00 20 88/58 Mechanical Ventilator 50 07/12/20 18:00 80 26 99/58 (72) 99 07/12/20 18:00 20 106/63 Mechanical Ventilator 50 07/12/20 18:00 20 106/63 Mechanical Ventilator 50 07/12/20 17:00 24 116/60 Mechanical Ventilator 50 07/12/20 17:00 24 116/60 Mechanical Ventilator 50 07/12/20 17:00 77 18 99/54 (69) 100 07/12/20 16:00 80 07/12/20 16:00 50 07/12/20 16:00 21 96/53 Mechanical Ventilator 50 07/12/20 16:00 21 96/53 Mechanical Ventilator 50 07/12/20 16:00 Mechanical Ventilator Mechanical Ventilator 07/12/20 16:00 98.6 80 20 96/53 (67) 100 07/12/20 15:04 79 17 50 07/12/20 15:00 20 98/61 Mechanical Ventilator 50 07/12/20 15:00 20 98/61 Mechanical Ventilator 50 07/12/20 15:00 81 20 98/61 (73) 100 07/12/20 14:00 22 99/66 Mechanical Ventilator 50 07/12/20 14:00 22 99/66 Mechanical Ventilator 50 07/12/20 14:00 87 23 99/66 (77) 100 07/12/20 13:30 30 93/63 Mechanical Ventilator 45.0 60 07/12/20 13:00 20 86/61 Mechanical Ventilator 50 07/12/20 13:00 20 86/61 Mechanical Ventilator 50 07/12/20 13:00 96 14 86/61 (69) 100 07/12/20 12:12 110 30 60 07/12/20 12:00 113 07/12/20 12:00 25 105/64 Mechanical Ventilator 50 07/12/20 12:00 25 105/64 Mechanical Ventilator 50 07/12/20 12:00 Mechanical Ventilator Mechanical Ventilator 07/12/20 12:00 120 24 105/64 (78) 66 07/12/20 12:00 50 Intake and Output 07/12/20 07/13/20 19:00 07:00 Intake Total 315 ml 460 ml Output Total 390 ml 460 ml Balance -75 ml 0 ml IV Total 315 ml 360 ml Other 100 ml Output Urine Total 390 ml 450 ml Stool Total 10 ml General Appearance: no acute distress HEENT: normocephalic, status post trach Respiratory: chest wall non-tender Cardiovascular: normal peripheral pulses Abdomen: normal bowel sounds Laboratory Tests 07/13/20 05:45: White Blood Count 11.7H, Red Blood Count 3.38L, Hemoglobin 9.6L, Hematocrit 3 0.7L, Mean Corpuscular Volume 91, Mean Corpuscular Hemoglobin 28.5, Mean Corpuscular Hemoglobin Concent 31.4L, Red Cell Distribution Width 17.0H, Platelet Count 321, Mean Platelet Volume 8.4, Neutrophils (%) (Auto) 66.1, Lymphocytes (%) (Auto) 19.5L, Monocytes (%) (Auto) 8.3, Eosinophils (%) (Auto) 5.4H, Basophils (%) (Auto) 0.8, Sodium Level 139, Potassium Level 4.2, Chloride Level 95L, Carbon Dioxide Level 39H, Anion Gap 6, Blood Urea Nitrogen 9, Creatinine 0.4L, Estimat Glomerular Filtration Rate > 60, Glucose Level 92, Calcium Level 10.0 Current Medications Medications (Trade) Dose Ordered Sig/Zelda Route PRN Reason Start Time Stop Time Status Last Admin Dose Admin Acetaminophen (Tylenol) 650 mg Q4H PRN NG Temp >100.5 06/29/20 10:15 07/29/20 10:14 07/08/20 18:26 Acetaminophen (Tylenol) 650 mg Q6H PRN NG Mild Pain (Pain Scale 1-3) 06/29/20 10:15 07/29/20 10:14 Chlorhexidine Gluconate (Inna-Hex 2%) 1 applic DAILY@1999 TOPIC 05/30/20 20:00 08/28/20 19:59 07/12/20 19:36 Dextrose (Dextrose 50%) 25 ml Q30M PRN IV Hypoglycemia 06/05/20 10:45 4/13/21 10:44 Dextrose (Dextrose 50%) 50 ml Q30M PRN IV Hypoglycemia 06/05/20 10:45 09/03/20 10:44 Fentanyl Citrate 250 ml @ 0 mls/hr Q24H IV 07/11/20 12:00 07/13/20 13:59 07/12/20 13:30 Fentanyl Citrate 250 ml @ 0 mls/hr Q24H IV 07/13/20 14:00 07/15/20 13:59 Furosemide (Lasix) 40 mg DAILY IV 06/22/20 09:00 07/22/20 08:59 07/13/20 08:50 Lansoprazole (Prevacid) 30 mg DAILY GT 07/10/20 09:00 08/09/20 08:59 07/13/20 10:10 Midazolam HCl 200 ml @ 0 mls/hr Q24H PRN IV To Patient Comfort 07/10/20 12:00 07/17/20 11:59 07/13/20 05:03 Midodrine (Pro-Amatine) 10 mg Q8HR GT 06/30/20 14:00 09/12/20 13:59 07/13/20 05:31 Vitamin D (Vitamin D) 5,000 unit DAILY GT 06/28/20 09:00 07/28/20 08:59 07/13/20 08:50 Assessment/Plan Assessment/Plan 1. COVID-19 pneumonia -Intubated 05/28/20 - We will continue broad-spectrum antibiotics. -s/p solumedrol, Rocephin -Continue PEEP 6 ->7 - Peak airway pressures high; 38 - FiO2 100% -> 90 ->80->60 ->40 ->80 ->100 ->70 ->60; PEEP 7 ->5 -will continue OGT feeding -Continue sedation; Need to keep patient completely sedated. 2. Hyponatremia -Per primary MD 3. Elevated inflammatory markers - has high D dimer; Lovenox re-started 4. Decreased PEEP Continue weaning efforts S/p trach Reported cuff leak per Rn/RT Discussed trach change with surgery Hold off for now... however noted loss of volumes on vent and high FiO2 requirements Off IV fluids Begin dc planning to subacute; will need to wean down O2 prior to transfer Javier Nava MD Jul 13, 2020 11:51
[2020-07-13] MEDS: fentaNYL 2500mcg/NS 250ml 250 ML IV SCH ×2 (12:00→14:57)
--- NOTE | 2020-07-13 12:40 | NUR ---
NURSE NOTES: Patient stable at this time. No s/sx of pain or distress.
--- NOTE | 2020-07-13 12:41 | Infectious Diseases Prog Note ---
Assessment/Plan Assessment/Plan A 1. COVID19 pneumonia 2. Hypoxic respiratory failure 3. Morbid obesity 4. DM type with hyperglycemia 5. Thrombocytopenia 6. leukocytosis resolved 7. Serratia pneumonia treated 8. Anemia 9. VDRF 10. postoperative fever P 1. Finished remdesivir course 2. Finished steroid course 3. Waiting for GT placement Subjective ROS Limited/Unobtainable: Yes Allergies: Coded Allergies: No Known Allergies (Unverified , 05/28/20) Objective Last 24 Hour Vital Signs Date Time Temp Pulse Resp B/P (MAP) Pulse Ox O2 Delivery O2 Flow Rate FiO2 07/13/20 12:00 108 07/13/20 12:00 60 07/13/20 12:00 107 37 91/49 (63) 99 07/13/20 11:00 97 30 100/52 (68) 99 07/13/20 10:00 98.1 100 27 106/54 (71) 99 07/13/20 10:00 30 106/54 Mechanical Ventilator 60 07/13/20 10:00 30 106/54 Mechanical Ventilator 60 07/13/20 09:00 90 26 99/86 (90) 99 07/13/20 09:00 26 99/86 Mechanical Ventilator 60 07/13/20 09:00 26 99/86 Mechanical Ventilator 60 07/13/20 08:00 96 07/13/20 08:00 60 07/13/20 08:00 97.9 94 30 101/42 (61) 100 07/13/20 08:00 25 101/42 Mechanical Ventilator 60 07/13/20 08:00 25 101/42 Mechanical Ventilator 60 07/13/20 08:00 Mechanical Ventilator Mechanical Ventilator 07/13/20 07:00 96 35 60 07/13/20 07:00 89 23 100/51 (67) 100 07/13/20 07:00 23 100/51 Mechanical Ventilator 50 07/13/20 07:00 23 100/51 Mechanical Ventilator 50 07/13/20 06:30 87 22 07/13/20 06:00 30 124/45 Mechanical Ventilator 50 07/13/20 06:00 30 124/45 Mechanical Ventilator 50 07/13/20 06:00 99 30 124/45 (71) 100 07/13/20 05:03 28 99/39 Mechanical Ventilator 50 07/13/20 05:00 100 32 99/39 (59) 100 07/13/20 05:00 32 99/39 Mechanical Ventilator 50 07/13/20 05:00 32 99/39 Mechanical Ventilator 50 07/13/20 04:00 Mechanical Ventilator Mechanical Ventilator 07/13/20 04:00 31 96/59 Mechanical Ventilator 50 07/13/20 04:00 31 96/59 Mechanical Ventilator 50 07/13/20 04:00 108 2 04:00 50 07/13/20 04:00 98.9 108 31 96/59 (71) 100 07/13/20 03:45 99 30 50 07/13/20 03:00 25 100/63 Mechanical Ventilator 50 07/13/20 03:00 25 100/63 Mechanical Ventilator 50 07/13/20 03:00 90 25 100/63 (75) 97 07/13/20 02:00 32 108/59 Mechanical Ventilator 50 07/13/20 02:00 32 108/59 Mechanical Ventilator 50 07/13/20 02:00 107 32 108/59 (75) 95 07/13/20 01:00 103 27 108/66 (80) 95 07/13/20 01:00 27 108/66 Mechanical Ventilator 50 07/13/20 01:00 27 108/66 Mechanical Ventilator 50 07/13/20 00:00 Mechanical Ventilator Mechanical Ventilator 07/13/20 00:00 98.6 105 29 112/64 (80) 92 07/13/20 00:00 105 07/13/20 00:00 29 112/64 Mechanical Ventilator 50 07/13/20 00:00 29 112/64 Mechanical Ventilator 50 07/13/20 00:00 50 07/12/20 23:02 96 32 50 07/12/20 23:00 24 112/66 Mechanical Ventilator 50 07/12/20 23:00 24 112/66 Mechanical Ventilator 50 07/12/20 23:00 101 24 112/66 (81) 96 07/12/20 22:30 97 27 109/67 (81) 96 07/12/20 22:00 20 99/62 Mechanical Ventilator 50 07/12/20 22:00 20 99/62 Mechanical Ventilator 50 07/12/20 22:00 93 20 99/62 (74) 97 07/12/20 21:00 92 30 86/49 (61) 98 07/12/20 21:00 30 86/49 Mechanical Ventilator 50 07/12/20 21:00 30 86/49 Mechanical Ventilator 50 07/12/20 20:00 Mechanical Ventilator Mechanical Ventilator 07/12/20 20:00 97.6 90 24 89/53 (65) 98 07/12/20 20:00 50 07/12/20 20:00 24 89/53 Mechanical Ventilator 50 07/12/20 20:00 24 89/53 Mechanical Ventilator 50 07/12/20 19:28 87 07/12/20 19:28 81 31 50 07/12/20 19:01 20 106/63 Mechanical Ventilator 50 07/12/20 19:00 91 25 88/58 (68) 97 07/12/20 19:00 20 88/58 Mechanical Ventilator 50 07/12/20 18:00 80 26 99/58 (72) 99 07/12/20 18:00 20 106/63 Mechanical Ventilator 50 07/12/20 18:00 20 106/63 Mechanical Ventilator 50 07/12/20 17:00 24 116/60 Mechanical Ventilator 50 07/12/20 17:00 24 116/60 Mechanical Ventilator 50 07/12/20 17:00 77 18 99/54 (69) 100 07/12/20 16:00 80 07/12/20 16:00 50 07/12/20 16:00 21 96/53 Mechanical Ventilator 50 07/12/20 16:00 21 96/53 Mechanical Ventilator 50 07/12/20 16:00 Mechanical Ventilator Mechanical Ventilator 07/12/20 16:00 98.6 80 20 96/53 (67) 100 07/12/20 15:04 79 17 50 07/12/20 15:00 20 98/61 Mechanical Ventilator 50 07/12/20 15:00 20 98/61 Mechanical Ventilator 50 07/12/20 15:00 81 20 98/61 (73) 100 07/12/20 14:00 22 99/66 Mechanical Ventilator 50 07/12/20 14:00 22 99/66 Mechanical Ventilator 50 07/12/20 14:00 87 23 99/66 (77) 100 07/12/20 13:30 30 93/63 Mechanical Ventilator 45.0 60 07/12/20 13:00 20 86/61 Mechanical Ventilator 50 07/12/20 13:00 20 86/61 Mechanical Ventilator 50 07/12/20 13:00 96 14 86/61 (69) 100 Height (Feet): 5 Height (Inches): 6.00 Weight (Pounds): 239 HEENT: mucous membranes moist, status post trach Respiratory/Chest: lungs clear, other - on ventilator, FIO2=50% Cardiovascular: tachycardia Abdomen: soft, non tender, other - NG tube feeding Extremities: no edema Neurologic/Psychiatric: other - sedated Laboratory Tests Test 07/13/20 05:45 White Blood Count 11.7 K/UL (4.8-10.8) H Red Blood Count 3.38 M/UL (4.20-5.40) L Hemoglobin 9.6 G/DL (12.0-16.0) L Hematocrit 30.7 % (37.0-47.0) L Mean Corpuscular Volume 91 FL (80-99) Mean Corpuscular Hemoglobin 28.5 PG (27.0-31.0) Mean Corpuscular Hemoglobin Concent 31.4 G/DL (32.0-36.0) L Red Cell Distribution Width 17.0 % (11.6-14.8) H Platelet Count 321 K/UL (150-450) Mean Platelet Volume 8.4 FL (6.5-10.1) Neutrophils (%) (Auto) 66.1 % (45.0-75.0) Lymphocytes (%) (Auto) 19.5 % (20.0-45.0) L Monocytes (%) (Auto) 8.3 % (1.0-10.0) Eosinophils (%) (Auto) 5.4 % (0.0-3.0) H Basophils (%) (Auto) 0.8 % (0.0-2.0) Sodium Level 139 MMOL/L (136-145) Potassium Level 4.2 MMOL/L (3.5-5.1) Chloride Level 95 MMOL/L (98-107) L Carbon Dioxide Level 39 MMOL/L (21-32) H Anion Gap 6 mmol/L (5-15) Blood Urea Nitrogen 9 mg/dL (7-18) Creatinine 0.4 MG/DL (0.55-1.30) L Estimat Glomerular Filtration Rate > 60 mL/min (>60) Glucose Level 92 MG/DL (74-106) Calcium Level 10.0 MG/DL (8.5-10.1) Current Medications Medications (Trade) Dose Ordered Sig/Zelda Route PRN Reason Start Time Stop Time Status Last Admin Dose Admin Acetaminophen (Tylenol) 650 mg Q4H PRN NG Temp >100.5 06/29/20 10:15 07/29/20 10:14 07/08/20 18:26 Acetaminophen (Tylenol) 650 mg Q6H PRN NG Mild Pain (Pain Scale 1-3) 06/29/20 10:15 07/29/20 10:14 Chlorhexidine Gluconate (Inna-Hex 2%) 1 applic DAILY@2000 TOPIC 05/30/20 20:00 08/28/20 19:59 07/12/20 19:36 Dextrose (Dextrose 50%) 25 ml Q30M PRN IV Hypoglycemia 06/05/20 10:45 09/03/20 10:44 Dextrose (Dextrose 50%) 50 ml Q30M PRN IV Hypoglycemia 06/05/20 10:45 09/03/20 10:44 Fentanyl Citrate 250 ml @ 0 mls/hr Q24H IV 07/11/20 12:00 07/13/20 13:59 07/12/20 13:30 Fentanyl Citrate 250 ml @ 0 mls/hr Q24H IV 07/13/20 14:00 07/15/20 13:59 Furosemide (Lasix) 40 mg DAILY IV 06/22/20 09:00 07/22/20 08:59 07/13/20 08:50 Lansoprazole (Prevacid) 30 mg DAILY GT 07/10/20 09:00 08/09/20 08:59 07/13/20 10:10 Midazolam HCl 200 ml @ 0 mls/hr Q24H PRN IV To Patient Comfort 07/10/20 12:00 07/17/20 11:59 07/13/20 05:03 Midodrine (Pro-Amatine) 10 mg Q8HR GT 06/30/20 14:00 09/12/20 13:59 07/13/20 05:31 Vitamin D (Vitamin D) 5,000 unit DAILY GT 06/28/20 09:00 07/28/20 08:59 07/13/20 08:50 Colt Arana MD Jul 13, 2020 12:41
--- NOTE | 2020-07-13 15:28 | NUR ---
INSURANCE CLINICALS AND REVIEWS FAXED TO [facility] T: [phone] EXT [phone] F: [phone]
--- NOTE | 2020-07-13 15:32 | NUR ---
NURSE NOTES: Patient stable at this time with no s/sx of pain or distress. Fentanyl and Versed changed at approximately 1500 with goal met of RASS -2. Midodrine also given at this time.
--- NOTE | 2020-07-13 17:30 | NUR ---
NURSE NOTES: Orders received. No residual at this time. Feeding started.
--- NOTE | 2020-07-13 19:10 | NUR ---
NURSE HAND-OFF REPORT: Latest Vital Signs: Temperature 97.2 , Pulse 102 , B/P 93 /58 , Respiratory Rate 28 , O2 SAT 100 , Mechanical Ventilator, O2 Flow Rate . Vital Sign Comment: Guarded EKG Rhythm: Sinus Tachycardia Rhythm change?: Jesus TOLLIVER Notified?: Jesus EDWARDS MD Response: Latest Meyers Fall Score: 70 Fall Risk: High Risk Safety Measures: Call light Within Reach, Bed Alarm Zone 1, Side Rails Side Rails x2, Bed position Low and Locked. Fall Precautions: Yellow Socks Report given to Travis RN. Plan of care endorsed. Endorsed that trach is leaking possibly due to size of shiley. Patient not retaining volumes. Both Dr. Nava and Dr. Devine aware.
[2020-07-13] MEDS: Dyna-Hex 2% Top Sol 2oz TOPIC SCH (19:32)
--- NOTE | 2020-07-13 19:50 | NUR ---
NURSE NOTES: PATIENT SEDATED, ON ETT TO VENT, AC 15/TV600/FIO2 50%/PEEP 5, O2 SATURATION 97% NOTED, NGT INTACT AND PATENT, ONGOING VITAL 1.2 AT 20ML/HR STATUS, NO RESIDUE NOTED, KEPT HOB 30 DEGREES AND ASPIRATION PRECAUTION, ABDOMEN SOFT, NON TENDER, RECTAL TUBE INTACT AND PATENT, F/C INTACT AND PATENT, ANNA COLOR URINE OUTED, TLC TO RIGHT FEMORAL, INTACT AND PATENT, ONGOING FENTANYL 100MCG/HR, VERSED 10MG/HR VIA TLC, KEPT RASS SCORE -2, MADE LOWER BED POSITION, ON BED ALARM AND LOCKED, WILL CONTINUE TO MONITOR.
--- NOTE | 2020-07-13 21:50 | NUR ---
NURSE NOTES: VSS, TOLERATED NGT FEEDING, NO PAIN OR SOB NOTED AT THIS TIME, WILL CONTINUE TO MONITOR.
[2020-07-14] VITALS (47 sets, daily range): BP systolic 89–131; BP diastolic 10–91
--- NOTE | 2020-07-14 00:10 | NUR ---
NURSE NOTES: VSS, NO ACUTE DISTRESS NOTED AT THIS TIME, WILL CONTINUE PLAN PF CARE.
[2020-07-14] MEDS: Versed 100mg/NS 200ml 200 ML IV PRN ×3 (01:06→19:01)
--- NOTE | 2020-07-14 02:10 | NUR ---
NURSE NOTES: PATIENT SEDATED, RASS -2, ORAL CARE WAS DONE.
--- NOTE | 2020-07-14 04:00 | NUR ---
NURSE NOTES: MORNING CARE WAS DONE.
[2020-07-14] MEDS: Midodrine 10mg tab GT SCH ×3 (05:34→21:30)
--- NOTE | 2020-07-14 06:20 | NUR ---
NURSE NOTES: TOLERATED NGT FEEDING, NO ACUTE DISTRESS NOTED AT THIS TIME.
--- NOTE | 2020-07-14 06:45 | Hematology/Onc Progress Note ---
Assessment/Plan Assessment/Plan Covering Im Dr. Del Cid # Deep vein thrombosis of the right calf --> given onoing anemia and low plts --> consider ivc if bleeding--once stable, needs it placed --> once stable, for radiology and ivc filter placement # Thrombocytopenia is due to infection/underlying covid19+++ --> ABX ceftriaxone -->zosyn-->off --> on steriods likely cause of initial wbc --> per pulm --> plt 107->156-->192-->205 --> smear reviewed # Leukocytosis due to Pneumonia due to COVID-19 virus --> per pulm rx -> sp remdesivir --> wbc 11.9 # Anemia due to chronic disease --> hgb goal is >7 --> transfuse prn --> ferritin is >1000 --> hold off on iron --> 10-->9.8->9-->8-->8.2-->9.4-->8.1-->9.9-->9.6 # Elevated ddimer due to covid19++ --> duplex legs is negative --> underlying covid rx # Hypoxia -> due to covid19 --> steriods as needed # Hypoxemia --> rx same as above # Respiratory failure --> on vent/trach --> per pulm # Diabetes mellitus out of control --> hgb a1c goal <7 # Poor prognosis # Dvt ppx ivc filter once more stable Appreciate consultation and dw RN Subjective Constitutional: Denies: no symptoms, chills, fever, malaise, weakness, other HEENT: Denies: no symptoms, eye pain, blurred vision, tearing, double vision, ear pain, ear discharge, nose pain, nose congestion, throat pain, throat swelling, mouth pain, mouth swelling, other Respiratory: Denies: no symptoms, cough, shortness of breath, SOB with excertion, SOB at rest, sputum, wheezing, other Gastrointestinal/Abdominal: Denies: no symptoms, abdomen distended, abdominal pain, black stools, tarry stools, blood in stool, constipated, diarrhea, difficulty swallowing, nausea, poor appetite, poor fluid intake, rectal bleeding, vomiting, other Genitourinary: Denies: no symptoms, burning, discharge, frequency, flank pain, hematuria, incontinence, pain, urgency, other Neurologic/Psychiatric: Denies: no symptoms, anxiety, depressed, emotional problems, headache, numbness, paresthesia, pre-existing deficit, seizure, tingling, tremors, weakness, other Endocrine: Denies: no symptoms, excessive sweating, flushing, intolerance to cold, intolerance to heat, increased hunger, increased thirst, increased urine, unexplained weight gain, unexplained weight loss, other Allergies: Coded Allergies: No Known Allergies (Unverified , 05/28/20) Subjective 06/10 nv, on vent, with ogt, on fentanyl and versed, plt stable 06/11 nv, vent adjusted is on ogt, meds reviewed 06/12 nv, vent, meds noted, labs noted, no bleeding, hgb 10.4 06/13 nv, is on vent, meds reviewed, no bleeding, cbc reviewed 06/14 nv, on vent, tachy, labs reviewed, gross hematuria, febrile overnight, abx 06/17 nv, on vent, labs noted, no major changes, feeling better overnight 06/18 nv, meds reviewed, labs noted, no major events, hgb 8.6 06/19 nv, remains intubated, with fluids, labs reviewed, meds noted 06/20 nv, intubated remains on restraints, meds noted as well, as labs 06/21, remains on vent, on restraints, meds reviewed, labs noted 06/22: covering Dr. Del Cid no acute events 06/23 sedated, on vent, nv, intubated, meds reviewed, versed 06/24 nv, on vent, no night sweats, no bleeding, remains in icu 06/25 nv, on vent, icu, meds noted, no bleeding, comfortable 06/26 nv, on versed, icu, weaning parameters, labs noted 06/27 nv, overnight fighting vent, as per pulm fentanyl on board 06/28 nv, on vent, labs reviewed, as per pulm, meds noted 06/30 nv, icu, labs pending, is on fentanyl, versed, no new changes 07/01 nv, icu, is on vent, labs pending, no new changes per rn 07/02 nv, icu is on vent, labs noted, hgb is stable 07/03 nv, icu, is on vent, potential trrach when stable, cbc reviewed 07/04 icu, nv, labs are noted, stable for trach today bowen Lizama 07/05 icu, nv, on vent, with ng and picc in place, labs noted, s/p trach 07/07 icu, nv, on tv, no bleeding, labs noted, meds reviewed 07/08 icu, nv, on tv, labs reviewed, meds noted, no bleeding 07/09 icu, nv, meds noted, no bleeding, blood transfusion was completed 07/10 icu, nv, labs ntoed, no bleeding, hgb improved, hgb 7.8 07/11 icu, nv, labs reviewed, hgb is improved, for ivcf if stabilizes 07/12 icu, nv, labs reviewed, meds noted, no bleeding, remains on vent 07/13 icu, on vent, nv, no bleeding, labs reviewed, no major events, bowen gracia 07/14 icu, on vent, nv, tolerating ngt feeds, bowen Rn, meds reviewed Objective Objective Current Medications Medications (Trade) Dose Ordered Sig/Zelda Route PRN Reason Start Time Stop Time Status Last Admin Dose Admin Acetaminophen (Tylenol) 650 mg Q4H PRN NG Temp >100.5 06/29/20 10:15 07/29/20 10:14 07/08/20 18:26 Acetaminophen (Tylenol) 650 mg Q6H PRN NG Mild Pain (Pain Scale 1-3) 06/29/20 10:15 07/29/20 10:14 Chlorhexidine Gluconate (Inna-Hex 2%) 1 applic DAILY@2000 TOPIC 05/30/20 20:00 08/28/20 19:59 07/13/20 19:32 Dextrose (Dextrose 50%) 25 ml Q30M PRN IV Hypoglycemia 06/05/20 10:45 09/03/20 10:44 Dextrose (Dextrose 50%) 50 ml Q30M PRN IV Hypoglycemia 06/05/20 10:45 09/03/20 10:44 Fentanyl Citrate 250 ml @ 0 mls/hr Q24H IV 07/13/20 14:00 07/15/20 13:59 07/13/20 14:57 Furosemide (Lasix) 40 mg DAILY IV 06/22/20 09:00 07/22/20 08:59 07/13/20 08:50 Lansoprazole (Prevacid) 30 mg DAILY GT 07/10/20 09:00 08/09/20 08:59 07/13/20 10:10 Midazolam HCl 200 ml @ 0 mls/hr Q24H PRN IV To Patient Comfort 07/10/20 12:00 07/17/20 11:59 07/14/20 01:06 Midodrine (Pro-Amatine) 10 mg Q8HR GT 06/30/20 14:00 09/12/20 13:59 07/14/20 05:34 Vitamin D (Vitamin D) 5,000 unit DAILY GT 06/28/20 09:00 07/28/20 08:59 07/13/20 08:50 Last 24 Hour Vital Signs Date Time Temp Pulse Resp B/P (MAP) Pulse Ox O2 Delivery O2 Flow Rate FiO2 07/14/20 06:31 111 30 07/14/20 06:00 111 30 122/61 (81) 96 07/14/20 06:00 30 122/61 Mechanical Ventilator 50 07/14/20 06:00 30 122/61 Mechanical Ventilator 50 07/14/20 05:00 115 33 131/55 (80) 94 07/14/20 05:00 33 131/55 Mechanical Ventilator 50 07/14/20 05:00 33 131/55 Mechanical Ventilator 50 07/14/20 04:00 Mechanical Ventilator Mechanical Ventilator 07/14/20 04:00 104 07/14/20 04:00 98.4 104 30 118/65 (82) 100 07/14/20 04:00 30 118/65 Mechanical Ventilator 50 07/14/20 04:00 30 115/65 Mechanical Ventilator 50 07/14/20 04:00 60 07/14/20 03:00 28 129/61 Non-Rebreather 50 07/14/20 03:00 28 129/61 Mechanical Ventilator 50 07/14/20 03:00 110 28 129/61 (83) 97 07/14/20 02:00 29 123/61 Mechanical Ventilator 50 07/14/20 02:00 29 123/61 Mechanical Ventilator 50 07/14/20 02:00 102 29 123/61 (81) 97 07/14/20 01:39 102 31 50 07/14/20 01:06 23 99/47 Mechanical Ventilator 50 07/14/20 01:00 90 27 99/47 (64) 100 07/14/20 01:00 27 99/47 Mechanical Ventilator 50 07/14/20 00:00 60 07/14/20 00:00 Mechanical Ventilator Mechanical Ventilator 07/14/20 00:00 99 07/14/20 00:00 26 95/56 Mechanical Ventilator 50 07/14/20 00:00 26 95/56 Mechanical Ventilator 50 07/14/20 00:00 98.4 95 26 95/56 (69) 99 07/13/20 23:00 24 98/57 Mechanical Ventilator 50 07/13/20 23:00 24 98/57 Mechanical Ventilator 85 07/13/20 23:00 93 24 98/57 (71) 100 07/13/20 22:00 121 31 109/70 (83) 93 07/13/20 22:00 31 109/70 Mechanical Ventilator 50 07/13/20 22:00 31 109/70 Mechanical Ventilator 50 07/13/20 21:00 35 112/26 Mechanical Ventilator 50 07/13/20 21:00 35 112/56 Mechanical Ventilator 50 07/13/20 21:00 120 35 112/56 (74) 92 07/13/20 20:00 60 07/13/20 20:00 98.6 100 26 97/56 (70) 96 07/13/20 20:00 26 97/56 Mechanical Ventilator 50 07/13/20 20:00 26 97/56 Mechanical Ventilator 50 07/13/20 20:00 Mechanical Ventilator Mechanical Ventilator 07/13/20 19:32 102 07/13/20 19:26 114 40 50 07/13/20 19:00 102 28 93/58 (70) 100 07/13/20 19:00 28 93/58 Mechanical Ventilator 50 07/13/20 19:00 28 93/58 Mechanical Ventilator 50 07/13/20 18:00 28 97/62 Mechanical Ventilator 50 07/13/20 18:00 28 97/62 Mechanical Ventilator 50 07/13/20 18:00 97.2 91 28 97/62 (74) 98 07/13/20 17:45 50 07/13/20 17:00 28 112/68 Endotracheal Tube 60 07/13/20 17:00 28 112/68 Mechanical Ventilator 60 07/13/20 17:00 88 24 112/68 (83) 100 07/13/20 16:00 87 07/13/20 16:00 Mechanical Ventilator Mechanical Ventilator 07/13/20 16:00 60 07/13/20 16:00 23 104/48 Mechanical Ventilator 60 07/13/20 16:00 23 104/48 Mechanical Ventilator 60 07/13/20 16:00 86 23 104/48 (66) 100 07/13/20 15:15 91 26 60 07/13/20 15:00 24 107/57 Mechanical Ventilator 60 07/13/20 15:00 24 107/57 Mechanical Ventilator 24 07/13/20 15:00 97.8 100 27 107/57 (74) 99 07/13/20 14:58 25 109/48 Mechanical Ventilator 60 07/13/20 14:57 25 109/48 Mechanical Ventilator 60 07/13/20 14:57 31 109/48 Mechanical Ventilator 60 07/13/20 14:00 102 31 109/48 (68) 98 07/13/20 14:00 31 109/48 Mechanical Ventilator 60 07/13/20 14:00 31 109/48 Mechanical Ventilator 60 07/13/20 13:00 27 102/55 Mechanical Ventilator 60 07/13/20 13:00 27 102/55 Mechanical Ventilator 60 07/13/20 13:00 98.4 104 25 102/55 (71) 100 07/13/20 12:00 Mechanical Ventilator Mechanical Ventilator 07/13/20 12:00 31 91/49 Mechanical Ventilator 60 07/13/20 12:00 31 91/49 Mechanical Ventilator 60 07/13/20 12:00 108 07/13/20 12:00 60 07/13/20 12:00 107 37 91/49 (63) 99 07/13/20 11:45 110 34 60 07/13/20 11:00 97 30 100/52 (68) 99 07/13/20 11:00 32 100/52 Mechanical Ventilator 60 07/13/20 11:00 32 100/52 Mechanical Ventilator 60 07/13/20 10:00 98.1 100 27 106/54 (71) 99 07/13/20 10:00 30 106/54 Mechanical Ventilator 60 07/13/20 10:00 30 106/54 Mechanical Ventilator 60 07/13/20 09:00 90 26 99/86 (90) 99 07/13/20 09:00 26 99/86 Mechanical Ventilator 60 07/13/20 09:00 26 99/86 Mechanical Ventilator 60 07/13/20 08:00 96 2/ 08:00 60 221 08:00 97.9 94 30 101/42 (61) 100 21 08:00 25 101/42 Mechanical Ventilator 60 07/13/20 08:00 25 101/42 Mechanical Ventilator 60 07/13/20 08:00 Mechanical Ventilator Mechanical Ventilator 07/13/20 07:00 96 35 60 07/13/20 07:00 89 23 100/51 (67) 100 07/13/20 07:00 23 100/51 Mechanical Ventilator 50 07/13/20 07:00 23 100/51 Mechanical Ventilator 50 07/13/20 06:30 87 22 07/13/20 06:00 30 124/45 Mechanical Ventilator 50 07/13/20 06:00 30 124/45 Mechanical Ventilator 50 07/13/20 06:00 99 30 124/45 (71) 100 07/13/20 05:03 28 99/39 Mechanical Ventilator 50 07/13/20 05:00 100 32 99/39 (59) 100 07/13/20 05:00 32 99/39 Mechanical Ventilator 50 07/13/20 05:00 32 99/39 Mechanical Ventilator 50 07/13/20 04:00 Mechanical Ventilator Mechanical Ventilator 07/13/20 04:00 31 96/59 Mechanical Ventilator 50 07/13/20 04:00 31 96/59 Mechanical Ventilator 50 07/13/20 04:00 108 07/13/20 04:00 50 07/13/20 04:00 98.9 108 31 96/59 (71) 100 07/13/20 03:45 99 30 50 07/13/20 03:00 25 100/63 Mechanical Ventilator 50 07/13/20 03:00 25 100/63 Mechanical Ventilator 50 07/13/20 03:00 90 25 100/63 (75) 97 07/13/20 02:00 32 108/59 Mechanical Ventilator 50 07/13/20 02:00 32 108/59 Mechanical Ventilator 50 07/13/20 02:00 107 32 108/59 (75) 95 21 01:00 103 27 108/66 (80) 95 07/13/20 01:00 27 108/66 Mechanical Ventilator 50 07/13/20 01:00 27 108/66 Mechanical Ventilator 50 07/13/20 00:00 Mechanical Ventilator Mechanical Ventilator 2/21 00:00 98.6 105 29 112/64 (80) 92 07/13/20 00:00 105 07/13/20 00:00 29 112/64 Mechanical Ventilator 50 07/13/20 00:00 29 112/64 Mechanical Ventilator 50 07/13/20 00:00 50 07/12/20 23:02 96 32 50 07/12/20 23:00 24 112/66 Mechanical Ventilator 50 07/12/20 23:00 24 112/66 Mechanical Ventilator 50 07/12/20 23:00 101 24 112/66 (81) 96 07/12/20 22:30 97 27 109/67 (81) 96 07/12/20 22:00 20 99/62 Mechanical Ventilator 50 07/12/20 22:00 20 99/62 Mechanical Ventilator 50 07/12/20 22:00 93 20 99/62 (74) 97 07/12/20 21:00 92 30 86/49 (61) 98 07/12/20 21:00 30 86/49 Mechanical Ventilator 50 07/12/20 21:00 30 86/49 Mechanical Ventilator 50 07/12/20 20:00 Mechanical Ventilator Mechanical Ventilator 07/12/20 20:00 97.6 90 24 89/53 (65) 98 07/12/20 20:00 50 07/12/20 20:00 24 89/53 Mechanical Ventilator 50 07/12/20 20:00 24 89/53 Mechanical Ventilator 50 07/12/20 19:28 87 07/12/20 19:28 81 31 50 07/12/20 19:01 20 106/63 Mechanical Ventilator 50 07/12/20 19:00 91 25 88/58 (68) 97 07/12/20 19:00 20 88/58 Mechanical Ventilator 50 07/12/20 18:00 80 26 99/58 (72) 99 07/12/20 18:00 20 106/63 Mechanical Ventilator 50 07/12/20 18:00 20 106/63 Mechanical Ventilator 50 07/12/20 17:00 24 116/60 Mechanical Ventilator 50 07/12/20 17:00 24 116/60 Mechanical Ventilator 50 07/12/20 17:00 77 18 99/54 (69) 100 07/12/20 16:00 80 07/12/20 16:00 50 07/12/20 16:00 21 96/53 Mechanical Ventilator 50 07/12/20 16:00 21 96/53 Mechanical Ventilator 50 07/12/20 16:00 Mechanical Ventilator Mechanical Ventilator 07/12/20 16:00 98.6 80 20 96/53 (67) 100 07/12/20 15:04 79 17 50 07/12/20 15:00 20 98/61 Mechanical Ventilator 50 07/12/20 15:00 20 98/61 Mechanical Ventilator 50 07/12/20 15:00 81 20 98/61 (73) 100 07/12/20 14:00 22 99/66 Mechanical Ventilator 50 07/12/20 14:00 22 99/66 Mechanical Ventilator 50 07/12/20 14:00 87 23 99/66 (77) 100 07/12/20 13:30 30 93/63 Mechanical Ventilator 45.0 60 07/12/20 13:00 20 86/61 Mechanical Ventilator 50 07/12/20 13:00 20 86/61 Mechanical Ventilator 50 07/12/20 13:00 96 14 86/61 (69) 100 07/12/20 12:12 110 30 60 07/12/20 12:00 113 07/12/20 12:00 25 105/64 Mechanical Ventilator 50 07/12/20 12:00 25 105/64 Mechanical Ventilator 50 07/12/20 12:00 Mechanical Ventilator Mechanical Ventilator 07/12/20 12:00 120 24 105/64 (78) 66 07/12/20 12:00 50 07/12/20 11:22 95 26 40 07/12/20 11:00 22 93/63 Mechanical Ventilator 50 07/12/20 11:00 26 93/63 Mechanical Ventilator 50 07/12/20 11:00 97 20 93/63 (73) 100 07/12/20 10:12 119 30 50 07/12/20 10:00 26 103/68 Mechanical Ventilator 50 07/12/20 10:00 26 103/68 Mechanical Ventilator 50 07/12/20 10:00 109 27 103/68 (80) 97 07/12/20 09:24 122 29 50 07/12/20 09:00 28 124/56 Mechanical Ventilator 50 07/12/20 09:00 119 28 128/69 (88) 97 07/12/20 08:55 36 124/56 Mechanical Ventilator 60 07/12/20 08:00 99.0 104 31 107/57 (74) 100 2/19/21 08:00 Mechanical Ventilator Mechanical Ventilator 07/12/20 08:00 29 107/57 Mechanical Ventilator 50 07/12/20 08:00 29 107/57 Mechanical Ventilator 50 07/12/20 08:00 110 07/12/20 08:00 55 07/12/20 07:20 116 36 60 07/12/20 07:00 122 33 124/59 (80) 76 07/12/20 07:00 30 124/50 Mechanical Ventilator 45 07/12/20 07:00 30 124/56 Mechanical Ventilator 45 Intake and Output 07/13/20 07/14/20 19:00 07:00 Intake Total 675.17 ml 750 ml Output Total 1480 ml 350 ml Balance -804.83 ml 400 ml Free Water 160 ml IV Total 355.17 ml 330 ml Tube Feeding 40 ml 320 ml Other 120 ml 100 ml Output Urine Total 1480 ml 330 ml Stool Total 20 ml Labs Test 07/11/20 08:15 07/12/20 03:30 07/13/20 05:45 Arterial Blood pH 7.421 (7.350-7.450) Arterial Blood Partial Pressure CO2 65.2 mmHg (35.0-45.0) Arterial Blood Partial Pressure O2 64.5 mmHg (75.0-100.0) Arterial Blood HCO3 41.4 mmol/L (22.0-26.0) Arterial Blood Oxygen Saturation 91.2 % (95-100) Arterial Blood Base Excess 14.7 (-2-2) Jeremiah Test Positive White Blood Count 12.6 K/UL (4.8-10.8) 11.7 K/UL (4.8-10.8) Red Blood Count 3.20 M/UL (4.20-5.40) 3.38 M/UL (4.20-5.40) Hemoglobin 9.0 G/DL (12.0-16.0) 9.6 G/DL (12.0-16.0) Hematocrit 29.5 % (37.0-47.0) 30.7 % (37.0-47.0) Mean Corpuscular Volume 92 FL (80-99) 91 FL (80-99) Mean Corpuscular Hemoglobin 28.3 PG (27.0-31.0) 28.5 PG (27.0-31.0) Mean Corpuscular Hemoglobin Concent 30.6 G/DL (32.0-36.0) 31.4 G/DL (32.0-36.0) Red Cell Distribution Width 17.1 % (11.6-14.8) 17.0 % (11.6-14.8) Platelet Count 344 K/UL (150-450) 321 K/UL (150-450) Mean Platelet Volume 7.1 FL (6.5-10.1) 8.4 FL (6.5-10.1) Neutrophils (%) (Auto) 73.2 % (45.0-75.0) 66.1 % (45.0-75.0) Lymphocytes (%) (Auto) 14.7 % (20.0-45.0) 19.5 % (20.0-45.0) Monocytes (%) (Auto) 7.7 % (1.0-10.0) 8.3 % (1.0-10.0) Eosinophils (%) (Auto) 3.3 % (0.0-3.0) 5.4 % (0.0-3.0) Basophils (%) (Auto) 1.1 % (0.0-2.0) 0.8 % (0.0-2.0) Sodium Level 137 MMOL/L (136-145) 139 MMOL/L (136-145) Potassium Level 3.4 MMOL/L (3.5-5.1) 4.2 MMOL/L (3.5-5.1) Chloride Level 91 MMOL/L (98-107) 95 MMOL/L (98-107) Carbon Dioxide Level 38 MMOL/L (21-32) 39 MMOL/L (21-32) Anion Gap 8 mmol/L (5-15) 6 mmol/L (5-15) Blood Urea Nitrogen 7 mg/dL (7-18) 9 mg/dL (7-18) Creatinine 0.4 MG/DL (0.55-1.30) 0.4 MG/DL (0.55-1.30) Estimat Glomerular Filtration Rate > 60 mL/min (>60) > 60 mL/min (>60) Glucose Level 110 MG/DL (74-106) 92 MG/DL (74-106) Calcium Level 9.7 MG/DL (8.5-10.1) 10.0 MG/DL (8.5-10.1) Phosphorus Level 3.4 MG/DL (2.5-4.9) Magnesium Level 1.8 MG/DL (1.8-2.4) Total Bilirubin 1.2 MG/DL (0.2-1.0) Direct Bilirubin 0.4 MG/DL (0.0-0.3) Aspartate Amino Transf (AST/SGOT) 26 U/L (15-37) Alanine Aminotransferase (ALT/SGPT) 14 U/L (12-78) Alkaline Phosphatase 72 U/L (46-116) Total Protein 7.6 G/DL (6.4-8.2) Albumin 2.2 G/DL (3.4-5.0) Height (Feet): 5 Height (Inches): 6.00 Weight (Pounds): 239 Objective GeNL: nv HEENT: ngt++ Pulm: vent/trach++ CV: rrr Abd: soft, nt, nd Ext: no cce Myron Condon MD Jul 14, 2020 06:45
--- NOTE | 2020-07-14 07:07 | NUR ---
NURSE HAND-OFF REPORT: Latest Vital Signs: Temperature 98.4 , Pulse 111 , B/P 122 /61 , Respiratory Rate 30 , O2 SAT 96 , Mechanical Ventilator, O2 Flow Rate . Vital Sign Comment: EKG Rhythm: Sinus Tachycardia Rhythm change?: Babs TOLLIVER Notified?: Jesus EDWARDS MD Response: Latest Meyers Fall Score: 70 Fall Risk: High Risk Safety Measures: Call light Within Reach, Bed Alarm Zone 1, Side Rails Side Rails x2, Bed position Low and Locked. Fall Precautions: Yellow Socks Report given to Se [place] RN..
--- NOTE | 2020-07-14 08:18 | Pulmonology Progress Note ---
Subjective ROS Limited/Unobtainable: Yes Interval Events: S/p tracheostomy 07/04/20 Constitutional: Reports: fever, other - T=100 HEENT: Repors: no symptoms Respiratory: Reports: no symptoms Cardiovascular: Reports: no symptoms Gastrointestinal/Abdominal: Reports: no symptoms Genitourinary: Reports: no symptoms Allergies: Coded Allergies: No Known Allergies (Unverified , 05/28/20) All Systems: reviewed and negative except above Objective Last 24 Hour Vital Signs Date Time Temp Pulse Resp B/P (MAP) Pulse Ox O2 Delivery O2 Flow Rate FiO2 07/14/20 07:09 111 28 50 07/14/20 07:00 109 27 118/73 (88) 96 07/14/20 07:00 27 118/73 Mechanical Ventilator 50 07/14/20 07:00 27 118/73 Mechanical Ventilator 50 07/14/20 06:31 111 30 07/14/20 06:00 111 30 122/61 (81) 96 07/14/20 06:00 30 122/61 Mechanical Ventilator 50 07/14/20 06:00 30 122/61 Mechanical Ventilator 50 07/14/20 05:00 115 33 131/55 (80) 94 07/14/20 05:00 33 131/55 Mechanical Ventilator 50 07/14/20 05:00 33 131/55 Mechanical Ventilator 50 07/14/20 04:00 Mechanical Ventilator Mechanical Ventilator 07/14/20 04:00 104 07/14/20 04:00 98.4 104 30 118/65 (82) 100 07/14/20 04:00 30 118/65 Mechanical Ventilator 50 07/14/20 04:00 30 115/65 Mechanical Ventilator 50 07/14/20 04:00 60 07/14/20 03:00 28 129/61 Non-Rebreather 50 07/14/20 03:00 28 129/61 Mechanical Ventilator 50 07/14/20 03:00 110 28 129/61 (83) 97 07/14/20 02:00 29 123/61 Mechanical Ventilator 50 07/14/20 02:00 29 123/61 Mechanical Ventilator 50 07/14/20 02:00 102 29 123/61 (81) 97 07/14/20 01:39 102 31 50 07/14/20 01:06 23 99/47 Mechanical Ventilator 50 07/14/20 01:00 90 27 99/47 (64) 100 07/14/20 01:00 27 99/47 Mechanical Ventilator 50 07/14/20 00:00 60 07/14/20 00:00 Mechanical Ventilator Mechanical Ventilator 07/14/20 00:00 99 07/14/20 00:00 26 95/56 Mechanical Ventilator 50 07/14/20 00:00 26 95/56 Mechanical Ventilator 50 07/14/20 00:00 98.4 95 26 95/56 (69) 99 07/13/20 23:00 24 98/57 Mechanical Ventilator 50 07/13/20 23:00 24 98/57 Mechanical Ventilator 85 07/13/20 23:00 93 24 98/57 (71) 100 07/13/20 22:00 121 31 109/70 (83) 93 07/13/20 22:00 31 109/70 Mechanical Ventilator 50 07/13/20 22:00 31 109/70 Mechanical Ventilator 50 07/13/20 21:00 35 112/26 Mechanical Ventilator 50 07/13/20 21:00 35 112/56 Mechanical Ventilator 50 07/13/20 21:00 120 35 112/56 (74) 92 07/13/20 20:00 60 07/13/20 20:00 98.6 100 26 97/56 (70) 96 07/13/20 20:00 26 97/56 Mechanical Ventilator 50 07/13/20 20:00 26 97/56 Mechanical Ventilator 50 07/13/20 20:00 Mechanical Ventilator Mechanical Ventilator 07/13/20 19:32 102 07/13/20 19:26 114 40 50 07/13/20 19:00 102 28 93/58 (70) 100 07/13/20 19:00 28 93/58 Mechanical Ventilator 50 07/13/20 19:00 28 93/58 Mechanical Ventilator 50 07/13/20 18:00 28 97/62 Mechanical Ventilator 50 07/13/20 18:00 28 97/62 Mechanical Ventilator 50 07/13/20 18:00 97.2 91 28 97/62 (74) 98 07/13/20 17:45 50 07/13/20 17:00 28 112/68 Endotracheal Tube 60 07/13/20 17:00 28 112/68 Mechanical Ventilator 60 07/13/20 17:00 88 24 112/68 (83) 100 07/13/20 16:00 87 2/20/21 16:00 Mechanical Ventilator Mechanical Ventilator 07/13/20 16:00 60 07/13/20 16:00 23 104/48 Mechanical Ventilator 60 07/13/20 16:00 23 104/48 Mechanical Ventilator 60 07/13/20 16:00 86 23 104/48 (66) 100 07/13/20 15:15 91 26 60 07/13/20 15:00 24 107/57 Mechanical Ventilator 60 07/13/20 15:00 24 107/57 Mechanical Ventilator 24 07/13/20 15:00 97.8 100 27 107/57 (74) 99 07/13/20 14:58 25 109/48 Mechanical Ventilator 60 07/13/20 14:57 25 109/48 Mechanical Ventilator 60 07/13/20 14:57 31 109/48 Mechanical Ventilator 60 07/13/20 14:00 102 31 109/48 (68) 98 07/13/20 14:00 31 109/48 Mechanical Ventilator 60 07/13/20 14:00 31 109/48 Mechanical Ventilator 60 07/13/20 13:00 27 102/55 Mechanical Ventilator 60 07/13/20 13:00 27 102/55 Mechanical Ventilator 60 07/13/20 13:00 98.4 104 25 102/55 (71) 100 07/13/20 12:00 Mechanical Ventilator Mechanical Ventilator 07/13/20 12:00 31 91/49 Mechanical Ventilator 60 07/13/20 12:00 31 91/49 Mechanical Ventilator 60 07/13/20 12:00 108 07/13/20 12:00 60 07/13/20 12:00 107 37 91/49 (63) 99 07/13/20 11:45 110 34 60 07/13/20 11:00 97 30 100/52 (68) 99 07/13/20 11:00 32 100/52 Mechanical Ventilator 60 07/13/20 11:00 32 100/52 Mechanical Ventilator 60 07/13/20 10:00 98.1 100 27 106/54 (71) 99 07/13/20 10:00 30 106/54 Mechanical Ventilator 60 07/13/20 10:00 30 106/54 Mechanical Ventilator 60 07/13/20 09:00 90 26 99/86 (90) 99 07/13/20 09:00 26 99/86 Mechanical Ventilator 60 07/13/20 09:00 26 99/86 Mechanical Ventilator 60 Intake and Output 07/13/20 07/14/20 19:00 07:00 Intake Total 675.17 ml 820 ml Output Total 1480 ml 380 ml Balance -804.83 ml 440 ml Free Water 160 ml IV Total 355.17 ml 360 ml Tube Feeding 40 ml 360 ml Other 120 ml 100 ml Output Urine Total 1480 ml 360 ml Stool Total 20 ml General Appearance: no acute distress HEENT: normocephalic, status post trach Respiratory: chest wall non-tender Cardiovascular: normal peripheral pulses Abdomen: normal bowel sounds Current Medications Medications (Trade) Dose Ordered Sig/Zelda Route PRN Reason Start Time Stop Time Status Last Admin Dose Admin Acetaminophen (Tylenol) 650 mg Q4H PRN NG Temp >100.5 06/29/20 10:15 07/29/20 10:14 07/08/20 18:26 Acetaminophen (Tylenol) 650 mg Q6H PRN NG Mild Pain (Pain Scale 1-3) 06/29/20 10:15 07/29/20 10:14 Chlorhexidine Gluconate (Inna-Hex 2%) 1 applic DAILY@2000 TOPIC 05/30/20 20:00 08/28/20 19:59 07/13/20 19:32 Dextrose (Dextrose 50%) 25 ml Q30M PRN IV Hypoglycemia 06/05/20 10:45 09/03/20 10:44 Dextrose (Dextrose 50%) 50 ml Q30M PRN IV Hypoglycemia 06/05/20 10:45 09/03/20 10:44 Fentanyl Citrate 250 ml @ 0 mls/hr Q24H IV 07/13/20 14:00 07/15/20 13:59 07/13/20 14:57 Furosemide (Lasix) 40 mg DAILY IV 06/22/20 09:00 07/22/20 08:59 07/13/20 08:50 Lansoprazole (Prevacid) 30 mg DAILY GT 07/10/20 09:00 08/09/20 08:59 07/13/20 10:10 Midazolam HCl 200 ml @ 0 mls/hr Q24H PRN IV To Patient Comfort 07/10/20 12:00 07/17/20 11:59 07/14/20 01:06 Midodrine (Pro-Amatine) 10 mg Q8HR GT 06/30/20 14:00 09/12/20 13:59 07/14/20 05:34 Vitamin D (Vitamin D) 5,000 unit DAILY GT 06/28/20 09:00 07/28/20 08:59 07/13/20 08:50 Assessment/Plan Assessment/Plan 1. COVID-19 pneumonia -Intubated 05/28/20 - We will continue broad-spectrum antibiotics. -s/p solumedrol, Rocephin -Continue PEEP 6 ->7 - Peak airway pressures high; 38 - FiO2 100% -> 90 ->80->60 ->40 ->80 ->100 ->70 ->60 -> 50%; PEEP 7 ->5 -will continue OGT feeding 2. Hyponatremia -Per primary MD 3. Elevated inflammatory markers - has high D dimer; Lovenox re-started 4. Decreased PEEP Continue weaning efforts S/p trach Reported cuff leak per Rn/RT Discussed trach change with surgery Hold off for now... however noted loss of volumes on vent and high FiO2 requirements Off IV fluids Begin dc planning to subacute; will need to wean down O2 prior to transfer Javier Nava MD Jul 14, 2020 08:18
[2020-07-14] MEDS: Vitamin D 1000 units Tab GT SCH (08:22)
[2020-07-14] MEDS: Lansoprazole 15mg cap GT SCH (08:23)
[2020-07-14 11:24] LABS: BASOPHILS % (AUTO) 1.2 % (0.0-2.0); EOSINOPHILS % (AUTO) 8.2 % (0.0-3.0); HEMATOCRIT 31.6 % (37.0-47.0); HEMOGLOBIN 9.5 G/DL (12.0-16.0); LYMPHOCYTES % (AUTO) 20.1 % (20.0-45.0); MEAN CORPUSCULAR VOLUME 92 FL (80-99); MONOCYTES % (AUTO) 7.1 % (1.0-10.0); NEUTROPHILS % (AUTO) 63.4 % (45.0-75.0); PLATELET COUNT 424 K/UL (150-450); RED BLOOD COUNT 3.42 M/UL (4.20-5.40); RED CELL DISTRIBUTION WIDTH 17.5 % (11.6-14.8)
[2020-07-14 11:39] LABS: ALANINE AMINOTRANSFERASE 12 U/L (12-78); ALBUMIN 2.1 G/DL (3.4-5.0); ALBUMIN/GLOBULIN RATIO 0.3 (1.0-2.7); ALKALINE PHOSPHATASE 76 U/L (46-116); ANION GAP 5 mmol/L (5-15); ASPARTATE AMINO TRANSFERASE 20 U/L (15-37); BLOOD UREA NITROGEN 11 mg/dL (7-18); CALCIUM 10.1 MG/DL (8.5-10.1); CHLORIDE 95 MMOL/L (98-107); CREATININE 0.5 MG/DL (0.55-1.30); POTASSIUM 3.7 MMOL/L (3.5-5.1); SODIUM 140 MMOL/L (136-145)
[2020-07-14 11:47] LABS: CARBON DIOXIDE 41 MMOL/L (21-32)
--- NOTE | 2020-07-14 12:55 | Nephrology Progress Note ---
Assessment/Plan Problem List: (1) DEVENDRA (acute kidney injury) (2) Morbid obesity (3) Diabetes mellitus out of control (4) Pneumonia due to COVID-19 virus (5) Respiratory failure Assessment Acute renal failure Obstructive uropathy, clogged Lennon Respiratory failure COVID-19 pneumonia Morbid obesity Plan July 14: Status quo. FiO2 50%. Labs reviewed. Renal parameters stable. Continue per current treatment plan and consultants. Medication list reviewed. July 13: FiO2 60% unchanged. Labs reviewed. Renal parameters stable. Medication list reviewed. Continue per consultants. July 12: Full code. Labs reviewed. Normal electrolytes addressed. Continue per pulmonary. Medication list reviewed. July 11: Remains full code. On ventilator. FiO2 down to 65%. Renal parameters stable. Low magnesium addressed. Continue her current management. July 10: Full code. On ventilator. FiO2 70%. Hemoglobin mid sevens. Blake al parameters stable. Continue per consultants. July 09: Labs reviewed. Renal parameters stable. FiO2 80% unchanged. Con tinue per pulmonary. July 08: Labs reviewed. Renal parameters and electrolytes stable. ABG suggestive of high PCO2. At this time patient is on FiO2 of 80%. Continue per pulmonary. Continue to monitor renal parameters. July 07: No CHEM panel drawn today. More potassium given. Continue to monitor renal parameters. Continue per consultants. Discussed with RAKEL Veras. July 06: Low potassium addressed. Albumin bolus for low BP given. Patient remains full code. Continue to monitor electrolytes and renal parameters. Continue per consultants. Hemoglobin low today, transfusion per manager radio. July 05: Trach to vent. FiO2 80%. Renal parameters stable. PCO2 remains high at 44. Continue to monitor renal parameters. July 04: Patient now trach. Full code. Labs reviewed. Renal parameters stable. Low magnesium addressed. July 03: Intubated. Full code. Labs reviewed. Abnormal electrolytes addressed. Continue per consultants. Overall status unchanged. July 02: Remains intubated. Remains full code. Remains on FiO2 of 70%. Labs reviewed. Abnormal electrolytes addressed. Continue per pulmonary. July 01: Remains on 70% FiO2. Full code. Intubated on ventilator. Retaining CO2. Discussed with RN. Will do ABG today. Albumin bolus given. 1 dose of Diamox given. June 30: Status quo. Labs reviewed. Abnormal electrolytes addressed. Remains full code. Remains on ventilator. Magnesium sulfate 4 gram IVPB given. June 29: Full code. Intubated on ventilator. Labs reviewed. Stable from renal standpoint of view. Continue per consultants. June 28: Remains full code. Remains intubated on ventilator. Labs reviewed. Vitamin D supplement ordered. Continue to monitor renal parameters. Continue per consultants. June 27: Remains full code. Intubated on ventilator. Labs reviewed. Abnormal electrolyte addressed. Continue to monitor renal parameters and electrolytes. Continue per consultants. June 26: Labs reviewed. Remains full code. Remains intubated. Back on NGT feeding. Continue to monitor renal parameters. June 25: Labs reviewed. Renal parameters stable. Remains full code. Due to positional status patient could not be fed via NG tube. Starting TPN? Is being entertained. Continue per consultants. June 24: Labs reviewed. Renal parameters stable. Remains full code. Remains intubated on ventilator. Continue per consultants. June 23: Labs reviewed. Renal parameters stable. Discussed with RN. Abnormal electrolyte addressed. Remains full code. Remains on ventilator. Continue per consultants. June 22: Labs reviewed. Low potassium addressed. Discussed with RAKEL Moran. Patient full code. Remains on ventilator. Continue to monitor renal parameters. June 21. Labs reviewed. Abnormal electrolyte addressed. Full code. Remains on ventilator. Medication list reviewed. Continue per pulmonary management. DC IV fluid, resume Lasix daily, check chest x-ray. June 20: Labs reviewed. Abnormal electrolytes. Patient remains full code. Continue per consultants. Noted and addressed June 19: Labs reviewed. Abnormal electrolytes noted and addressed. Remains intubated on ventilator. Remains full code. June 18: Labs reviewed. Remains intubated on ventilator. Full code. Abnormal electrolyte addressed. Continue as is. June 17: Labs reviewed. Abnormal electrolytes addressed. Patient remains full code and intubated on ventilator. Continue per consultants. Renal parameters are within normal limits. June 16: Labs reviewed. Potassium chloride replaced. Remains full code. Remains intubated on ventilator. Continue per consultants. Continue to monitor renal parameters. June 15: Labs reviewed. Serum creatinine 1. Stable from renal standpoint to view. Continue per consultants. June 14: Labs reviewed. Full code. Serum creatinine of 3.5 down to 1.4. Low potassium addressed. Continue per current treatment plan. Continue to monitor renal parameters. Midodrine started. Albumin bolus given. Previously: DC Lasix drip Increase Protonix dose Monitor renal parameters, electrolytes Per orders Subjective ROS Limited/Unobtainable: Yes Objective Objective Last 24 Hour Vital Signs Date Time Temp Pulse Resp B/P (MAP) Pulse Ox O2 Delivery O2 Flow Rate FiO2 07/14/20 12:22 30 117/76 Mechanical Ventilator 50 07/14/20 07:09 111 28 50 07/14/20 07:00 109 27 118/73 (88) 96 07/14/20 07:00 27 118/73 Mechanical Ventilator 50 07/14/20 07:00 27 118/73 Mechanical Ventilator 50 07/14/20 06:31 111 30 07/14/20 06:00 111 30 122/61 (81) 96 07/14/20 06:00 30 122/61 Mechanical Ventilator 50 07/14/20 06:00 30 122/61 Mechanical Ventilator 50 07/14/20 05:00 115 33 131/55 (80) 94 07/14/20 05:00 33 131/55 Mechanical Ventilator 50 07/14/20 05:00 33 131/55 Mechanical Ventilator 50 07/14/20 04:00 Mechanical Ventilator Mechanical Ventilator 07/14/20 04:00 104 07/14/20 04:00 98.4 104 30 118/65 (82) 100 07/14/20 04:00 30 118/65 Mechanical Ventilator 50 07/14/20 04:00 30 115/65 Mechanical Ventilator 50 07/14/20 04:00 60 07/14/20 03:00 28 129/61 Non-Rebreather 50 07/14/20 03:00 28 129/61 Mechanical Ventilator 50 07/14/20 03:00 110 28 129/61 (83) 97 07/14/20 02:00 29 123/61 Mechanical Ventilator 50 07/14/20 02:00 29 123/61 Mechanical Ventilator 50 07/14/20 02:00 102 29 123/61 (81) 97 07/14/20 01:39 102 31 50 07/14/20 01:06 23 99/47 Mechanical Ventilator 50 07/14/20 01:00 90 27 99/47 (64) 100 07/14/20 01:00 27 99/47 Mechanical Ventilator 50 07/14/20 00:00 60 07/14/20 00:00 Mechanical Ventilator Mechanical Ventilator 07/14/20 00:00 99 07/14/20 00:00 26 95/56 Mechanical Ventilator 50 07/14/20 00:00 26 95/56 Mechanical Ventilator 50 07/14/20 00:00 98.4 95 26 95/56 (69) 99 07/13/20 23:00 24 98/57 Mechanical Ventilator 50 07/13/20 23:00 24 98/57 Mechanical Ventilator 85 07/13/20 23:00 93 24 98/57 (71) 100 07/13/20 22:00 121 31 109/70 (83) 93 07/13/20 22:00 31 109/70 Mechanical Ventilator 50 07/13/20 22:00 31 109/70 Mechanical Ventilator 50 07/13/20 21:00 35 112/26 Mechanical Ventilator 50 07/13/20 21:00 35 112/56 Mechanical Ventilator 50 07/13/20 21:00 120 35 112/56 (74) 92 07/13/20 20:00 60 07/13/20 20:00 98.6 100 26 97/56 (70) 96 07/13/20 20:00 26 97/56 Mechanical Ventilator 50 07/13/20 20:00 26 97/56 Mechanical Ventilator 50 07/13/20 20:00 Mechanical Ventilator Mechanical Ventilator 07/13/20 19:32 102 07/13/20 19:26 114 40 50 07/13/20 19:00 102 28 93/58 (70) 100 07/13/20 19:00 28 93/58 Mechanical Ventilator 50 07/13/20 19:00 28 93/58 Mechanical Ventilator 50 07/13/20 18:00 28 97/62 Mechanical Ventilator 50 07/13/20 18:00 28 97/62 Mechanical Ventilator 50 07/13/20 18:00 97.2 91 28 97/62 (74) 98 07/13/20 17:45 50 07/13/20 17:00 28 112/68 Endotracheal Tube 60 07/13/20 17:00 28 112/68 Mechanical Ventilator 60 07/13/20 17:00 88 24 112/68 (83) 100 07/13/20 16:00 87 07/13/20 16:00 Mechanical Ventilator Mechanical Ventilator 07/13/20 16:00 60 07/13/20 16:00 23 104/48 Mechanical Ventilator 60 07/13/20 16:00 23 104/48 Mechanical Ventilator 60 07/13/20 16:00 86 23 104/48 (66) 100 07/13/20 15:15 91 26 60 07/13/20 15:00 24 107/57 Mechanical Ventilator 60 07/13/20 15:00 24 107/57 Mechanical Ventilator 24 07/13/20 15:00 97.8 100 27 107/57 (74) 99 07/13/20 14:58 25 109/48 Mechanical Ventilator 60 07/13/20 14:57 25 109/48 Mechanical Ventilator 60 07/13/20 14:57 31 109/48 Mechanical Ventilator 60 07/13/20 14:00 102 31 109/48 (68) 98 07/13/20 14:00 31 109/48 Mechanical Ventilator 60 07/13/20 14:00 31 109/48 Mechanical Ventilator 60 07/13/20 13:00 27 102/55 Mechanical Ventilator 60 07/13/20 13:00 27 102/55 Mechanical Ventilator 60 07/13/20 13:00 98.4 104 25 102/55 (71) 100 Intake and Output 07/13/20 07/14/20 19:00 07:00 Intake Total 675.17 ml 820 ml Output Total 1480 ml 380 ml Balance -804.83 ml 440 ml Free Water 160 ml IV Total 355.17 ml 360 ml Tube Feeding 40 ml 360 ml Other 120 ml 100 ml Output Urine Total 1480 ml 360 ml Stool Total 20 ml Current Medications Medications (Trade) Dose Ordered Sig/Zelda Route PRN Reason Start Time Stop Time Status Last Admin Dose Admin Acetaminophen (Tylenol) 650 mg Q4H PRN NG Temp >100.5 06/29/20 10:15 07/29/20 10:14 07/08/20 18:26 Acetaminophen (Tylenol) 650 mg Q6H PRN NG Mild Pain (Pain Scale 1-3) 06/29/20 10:15 07/29/20 10:14 Chlorhexidine Gluconate (Inna-Hex 2%) 1 applic DAILY@1999 TOPIC 05/30/20 20:00 08/28/20 19:59 07/13/20 19:32 Dextrose (Dextrose 50%) 25 ml Q30M PRN IV Hypoglycemia 06/05/20 10:45 09/03/20 10:44 Dextrose (Dextrose 50%) 50 ml Q30M PRN IV Hypoglycemia 06/05/20 10:45 09/03/20 10:44 Fentanyl Citrate 250 ml @ 0 mls/hr Q24H IV 07/13/20 14:00 07/15/20 13:59 07/13/20 14:57 Furosemide (Lasix) 40 mg DAILY IV 06/22/20 09:00 07/22/20 08:59 07/14/20 08:21 Lansoprazole (Prevacid) 30 mg DAILY GT 07/10/20 09:00 08/09/20 08:59 07/14/20 08:23 Midazolam HCl 200 ml @ 0 mls/hr Q24H PRN IV To Patient Comfort 07/10/20 12:00 07/17/20 11:59 07/14/20 12:22 Midodrine (Pro-Amatine) 10 mg Q8HR GT 06/30/20 14:00 09/12/20 13:59 07/14/20 05:34 Vitamin D (Vitamin D) 5,000 unit DAILY GT 06/28/20 09:00 07/28/20 08:59 07/14/20 08:22 Laboratory Tests 07/14/20 09:09: Arterial Blood pH 7.400, Arterial Blood Partial Pressure CO2 65.9*H, Arterial Blood Partial Pressure O2 56.3L, Arterial Blood HCO3 39.9H, Arterial Blood Oxygen Saturation 87.1*L, Arterial Blood Base Excess 12.7*H, Jeremiah Test Positive 07/14/20 11:05: White Blood Count 11.0H, Red Blood Count 3.42L, Hemoglobin 9.5L, Hematocrit 31.6L, Mean Corpuscular Volume 92, Mean Corpuscular Hemoglobin 27.8, Mean Corpuscular Hemoglobin Concent 30.1L, Red Cell Distribution Width 17.5H, Platelet Count 424, Mean Platelet Volume 7.4, Neutrophils (%) (Auto) 63.4, Lymphocytes (%) (Auto) 20.1, Monocytes (%) (Auto) 7.1, Eosinophils (%) (Auto) 8.2H, Basophils (%) (Auto) 1.2, Sodium Level 140, Potassium Level 3.7, Chloride Level 95L, Carbon Dioxide Level 41*H, Anion Gap 5, Blood Urea Nitrogen 11, Creatinine 0.5L, Estimat Glomerular Filtration Rate > 60, Glucose Level 140H, Calcium Level 10.1, Total Bilirubin 1.0, Aspartate Amino Transf (AST/SGOT) 20, Alanine Aminotransferase (ALT/SGPT) 12, Alkaline Phosphatase 76, Total Protein 8.2, Albumin 2.1L, Globulin 6.1, Albumin/Globulin Ratio 0.3L Height (Feet): 5 Height (Inches): 6.00 Weight (Pounds): 239 General Appearance: no apparent distress EENT: other - Trach to vent Cardiovascular: tachycardia Respiratory/Chest: decreased breath sounds Abdomen: distended Rigo Tyler MD Jul 14, 2020 12:55
--- NOTE | 2020-07-14 13:11 | Surgery Progress Note ---
Surgery Progress Note Subjective Procedure Performed right femoral central venous line insertion Symptoms: improved Additional Comments no acute events Objective Last 24 Hour Vital Signs Date Time Temp Pulse Resp B/P (MAP) Pulse Ox O2 Delivery O2 Flow Rate FiO2 07/14/20 12:22 30 117/76 Mechanical Ventilator 50 07/14/20 07:09 111 28 50 07/14/20 07:00 109 27 118/73 (88) 96 07/14/20 07:00 27 118/73 Mechanical Ventilator 50 07/14/20 07:00 27 118/73 Mechanical Ventilator 50 07/14/20 06:31 111 30 07/14/20 06:00 111 30 122/61 (81) 96 07/14/20 06:00 30 122/61 Mechanical Ventilator 50 07/14/20 06:00 30 122/61 Mechanical Ventilator 50 07/14/20 05:00 115 33 131/55 (80) 94 07/14/20 05:00 33 131/55 Mechanical Ventilator 50 07/14/20 05:00 33 131/55 Mechanical Ventilator 50 07/14/20 04:00 Mechanical Ventilator Mechanical Ventilator 07/14/20 04:00 104 07/14/20 04:00 98.4 104 30 118/65 (82) 100 07/14/20 04:00 30 118/65 Mechanical Ventilator 50 07/14/20 04:00 30 115/65 Mechanical Ventilator 50 07/14/20 04:00 60 07/14/20 03:00 28 129/61 Non-Rebreather 50 07/14/20 03:00 28 129/61 Mechanical Ventilator 50 07/14/20 03:00 110 28 129/61 (83) 97 07/14/20 02:00 29 123/61 Mechanical Ventilator 50 07/14/20 02:00 29 123/61 Mechanical Ventilator 50 07/14/20 02:00 102 29 123/61 (81) 97 07/14/20 01:39 102 31 50 07/14/20 01:06 23 99/47 Mechanical Ventilator 50 07/14/20 01:00 90 27 99/47 (64) 100 07/14/20 01:00 27 99/47 Mechanical Ventilator 50 07/14/20 00:00 60 07/14/20 00:00 Mechanical Ventilator Mechanical Ventilator 07/14/20 00:00 99 07/14/20 00:00 26 95/56 Mechanical Ventilator 50 07/14/20 00:00 26 95/56 Mechanical Ventilator 50 07/14/21 00:00 98.4 95 26 95/56 (69) 99 20/21 23:00 24 98/57 Mechanical Ventilator 50 2/21 23:00 24 98/57 Mechanical Ventilator 85 220/21 23:00 93 24 98/57 (71) 100 220/21 22:00 121 31 109/70 (83) 93 2021 22:00 31 109/70 Mechanical Ventilator 50 07/13/20 22:00 31 109/70 Mechanical Ventilator 50 2/21 21:00 35 112/26 Mechanical Ventilator 50 2/21 21:00 35 112/56 Mechanical Ventilator 50 07/13/20 21:00 120 35 112/56 (74) 92 07/13/ 20:00 60 2/21 20:00 98.6 100 26 97/56 (70) 96 07/13/20 20:00 26 97/56 Mechanical Ventilator 50 07/13/20 20:00 26 97/56 Mechanical Ventilator 50 07/13/20 20:00 Mechanical Ventilator Mechanical Ventilator 07/13/20 19:32 102 07/13/20 19:26 114 40 50 07/13/ 19:00 102 28 93/58 (70) 100 07/13/20 19:00 28 93/58 Mechanical Ventilator 50 07/13/20 19:00 28 93/58 Mechanical Ventilator 50 07/13/20 18:00 28 97/62 Mechanical Ventilator 50 07/13/20 18:00 28 97/62 Mechanical Ventilator 50 07/13/20 18:00 97.2 91 28 97/62 (74) 98 07/13/20 17:45 50 07/13/20 17:00 28 112/68 Endotracheal Tube 60 07/13/20 17:00 28 112/68 Mechanical Ventilator 60 07/13/20 17:00 88 24 112/68 (83) 100 07/13/20 16:00 87 07/13/20 16:00 Mechanical Ventilator Mechanical Ventilator 07/13/20 16:00 60 07/13/20 16:00 23 104/48 Mechanical Ventilator 60 20/21 16:00 23 104/48 Mechanical Ventilator 60 07/13/21 16:00 86 23 104/48 (66) 100 07/13/20 15:15 91 26 60 07/13/20 15:00 24 107/57 Mechanical Ventilator 60 07/13/20 15:00 24 107/57 Mechanical Ventilator 24 07/13/20 15:00 97.8 100 27 107/57 (74) 99 07/13/20 14:58 25 109/48 Mechanical Ventilator 60 07/13/20 14:57 25 109/48 Mechanical Ventilator 60 07/13/20 14:57 31 109/48 Mechanical Ventilator 60 07/13/20 14:00 102 31 109/48 (68) 98 07/13/20 14:00 31 109/48 Mechanical Ventilator 60 07/13/20 14:00 31 109/48 Mechanical Ventilator 60 I&O Intake and Output 07/13/20 07/14/20 19:00 07:00 Intake Total 675.17 ml 820 ml Output Total 1480 ml 380 ml Balance -804.83 ml 440 ml Free Water 160 ml IV Total 355.17 ml 360 ml Tube Feeding 40 ml 360 ml Other 120 ml 100 ml Output Urine Total 1480 ml 360 ml Stool Total 20 ml Dressing: saturated Cardiovascular: RSR Respiratory: decreased breath sounds Abdomen: non-tender, present bowel sounds, non-distended Extremities: no tenderness, no cyanosis Laboratory Tests Test 07/14/20 09:09 07/14/20 11:05 Arterial Blood pH 7.400 (7.350-7.450) Arterial Blood Partial Pressure CO2 65.9 mmHg (35.0-45.0) *H Arterial Blood Partial Pressure O2 56.3 mmHg (75.0-100.0) L Arterial Blood HCO3 39.9 mmol/L (22.0-26.0) H Arterial Blood Oxygen Saturation 87.1 % (95-100) *L Arterial Blood Base Excess 12.7 (-2-2) *H Jeremiah Test Positive White Blood Count 11.0 K/UL (4.8-10.8) H Red Blood Count 3.42 M/UL (4.20-5.40) L Hemoglobin 9.5 G/DL (12.0-16.0) L Hematocrit 31.6 % (37.0-47.0) L Mean Corpuscular Volume 92 FL (80-99) Mean Corpuscular Hemoglobin 27.8 PG (27.0-31.0) Mean Corpuscular Hemoglobin Concent 30.1 G/DL (32.0-36.0) L Red Cell Distribution Width 17.5 % (11.6-14.8) H Platelet Count 424 K/UL (150-450) Mean Platelet Volume 7.4 FL (6.5-10.1) Neutrophils (%) (Auto) 63.4 % (45.0-75.0) Lymphocytes (%) (Auto) 20.1 % (20.0-45.0) Monocytes (%) (Auto) 7.1 % (1.0-10.0) Eosinophils (%) (Auto) 8.2 % (0.0-3.0) H Basophils (%) (Auto) 1.2 % (0.0-2.0) Sodium Level 140 MMOL/L (136-145) Potassium Level 3.7 MMOL/L (3.5-5.1) Chloride Level 95 MMOL/L (98-107) L Carbon Dioxide Level 41 MMOL/L (21-32) *H Anion Gap 5 mmol/L (5-15) Blood Urea Nitrogen 11 mg/dL (7-18) Creatinine 0.5 MG/DL (0.55-1.30) L Estimat Glomerular Filtration Rate > 60 mL/min (>60) Glucose Level 140 MG/DL (74-106) H Calcium Level 10.1 MG/DL (8.5-10.1) Total Bilirubin 1.0 MG/DL (0.2-1.0) Aspartate Amino Transf (AST/SGOT) 20 U/L (15-37) Alanine Aminotransferase (ALT/SGPT) 12 U/L (12-78) Alkaline Phosphatase 76 U/L (46-116) Total Protein 8.2 G/DL (6.4-8.2) Albumin 2.1 G/DL (3.4-5.0) L Globulin 6.1 g/dL Albumin/Globulin Ratio 0.3 (1.0-2.7) L Plan Problems: (1) Respiratory distress (2) Respiratory failure Assessment & Plan: 50-year-old female Covid positive respiratory insufficiency intubated on ventilatory support declining. Leukocytosis increase oxygen requirement. Vent settings per pulmonology reviewed identified and agree. Unfortunately further surgical invention at this time is not appropriate as patient is not a candidate and her current condition. Prognosis overall guarded. Tracheostomy can be considered in the future if recovering or shows improvement and requires unable to be weaned from ventilator support. Currently okay for nutritional optimization with NG tube. Will need significant monitoring for decubitus formation given patient's size and condition. Okay for air mattress tolerated. Turn every 2 hours as tolerated. Patient is otherwise critically ill and blood pressure labile. Will need to monitor closely.Bilateral infiltrates are again demonstrated. Stable tube and line positions. will need trach will need to wean vent first no cuff leak trach okay (3) Hypoxia (4) Pneumonia due to COVID-19 virus Assessment & Plan: ++ as per pulm and ID (5) Diabetes mellitus out of control Assessment & Plan: DAILY ESTIMATED NEEDS: Needs based on Critical care, obesity 11-14kcal/kg actual body wt (140kg) kcals/kg 1425-8225 total kcals 1.5-2.0g prot/kg IBW (64.5kg) g protein/kg 96-129 g total protein 25-30ml/kg abw (83kg) mL/kg 2768-1336 total fluid mLs NUTRITION DIAGNOSIS: Swallowing difficulty R/T respiratory failure as evidenced by pt orally intubated and sedated, on OGT feeds. CURRENT TF: Vital 1.2 goal of 60ml/hr ENTERAL NUTRITION RECOMMENDATIONS: Vital AF 1.2 @ 60ml/hr x 24 hrs to provide 1440ml, 1728kcal, 108g prot, 1168ml free water * Maintain current critical care and carb controlled TF formula of Vital AF * TF @ goal meeds 100% est kcal/prot needs * HOB over 30 degrees/ water flush per MD TF may be lowered to 55ml/hr for improved BG control while maintaining Kcal and pro needs. ADDITIONAL RECOMMENDATIONS: * Calibrated bedscale wt * Monitor Propofol rate, need for TF adjustment-> now off * Monitor BGs closely : now improved, on novolog q 6rs + NISS * Monitor lytes- K elevated, monitor need for TF change * Rec bowel regimen- now w/ rectal tube . Az Devine Jul 14, 2020 13:11
[2020-07-14] MEDS ORDERED: Lidocaine 1% Plain 30 ml INJ SCH (13:30)
[2020-07-14] MEDS: guaiFENesin w/Codeine 5ml Liq ud NG PRN (14:20)
[2020-07-14] MEDS: fentaNYL 2500mcg/NS 250ml 250 ML IV SCH (14:26)
--- NOTE | 2020-07-14 15:08 | Diagnostic Imaging Report ---
FILM CXR 1 VIEW HISTORY: Shortness of breath TECHNIQUE: None COMPARISON: 04 July 2020 FINDINGS: Enlarged heart. Bilateral upper and lower lobe opacities and interstitial prominence with improved appearance of the lungs from prior exam. Tracheostomy tube in place. Enteric tube with tip in the stomach. No acute osseous abnormality. IMPRESSION: Enlarged heart with interstitial prominence with upper and lower lobe opacities with improved appearance of the lungs from the prior exam.
[2020-07-14] MEDS ORDERED: Norepinephrine 4mg/NS Premix 250 ML IV PRN (18:45)
--- NOTE | 2020-07-14 19:15 | NUR ---
NURSE HAND-OFF REPORT: Latest Vital Signs: Temperature 98.7 , Pulse 103 , B/P 92 /58 , Respiratory Rate 16 , O2 SAT 96 , Mechanical Ventilator, O2 Flow Rate . Vital Sign Comment: EKG Rhythm: Sinus Tachycardia Rhythm change?: N Notified?: N Response: Latest Meyers Fall Score: 70 Fall Risk: High Risk Safety Measures: Call light Within Reach, Bed Alarm Zone 1, Side Rails Side Rails x2, Bed position Low and Locked. Fall Precautions: Yellow Socks Report given to RAKEL Kevin.
--- NOTE | 2020-07-14 20:00 | NUR ---
Received patient, shiley 8.5 trach, ventilator settings, ac 15, vt 600, peep 5 fio2 50%,o2 sat 99%, suctioned for blood tinged secretions, moderate amount, vent well tolerated. NGT in situ, no residual, tolerating feeding, vital 1.2 @ 60 cc/hr. Flexiseal with liquid brown stool. Lennon cath in place, urine concentrated with output averaging 25 cc/hr. temp 99.[address]. skin intact. Versed at 5 mg/hr and fentanyl at 100mmcgs via right femoral tlc.
[2020-07-14] MEDS: Dyna-Hex 2% Top Sol 2oz TOPIC SCH (21:00)
--- NOTE | 2020-07-14 22:00 | NUR ---
NURSE NOTES:patient given chg bath and repositioned, ventilator settings remain the same.
[2020-07-15] VITALS (70 sets, daily range): BP systolic 66–142; BP diastolic 55–92
--- NOTE | 2020-07-15 | NUR ---
NURSE NOTES:continues to tolerate ventilator, ngt feeding continued, bs 134.repositioned.
--- NOTE | 2020-07-15 01:00 | NUR ---
pt rr 32, versed increased to 10mg/hr
--- NOTE | 2020-07-15 02:00 | NUR ---
NURSE NOTES: pt calm, no distress, tolerating ventilator
--- NOTE | 2020-07-15 04:00 | NUR ---
NURSE NOTES:full bedbath given, patient slightly restless while care being given, now comfortable.
[2020-07-15] MEDS: fentaNYL 2500mcg/NS 250ml 250 ML IV SCH ×2 (04:35→14:00)
[2020-07-15] MEDS: Midodrine 10mg tab GT SCH ×3 (05:46→21:39)
--- NOTE | 2020-07-15 06:00 | NUR ---
NURSE NOTES:patient RR 25-30, remains in sr/st, occasionally requires suctioning, versed continues at 10mg/hr and fentanyl at 100 mcg/hr. central line dressing was changed, site clean.
--- NOTE | 2020-07-15 06:39 | Hematology/Onc Progress Note ---
Assessment/Plan Assessment/Plan # Deep vein thrombosis of the right calf --> given onoing anemia and low plts --> consider ivc if bleeding--once stable, needs it placed --> once stable, for radiology and ivc filter placement # Thrombocytopenia is due to infection/underlying covid19+++ --> ABX ceftriaxone -->zosyn-->off --> on steriods likely cause of initial wbc --> per pulm --> plt 107->156-->192-->205 --> smear reviewed # Leukocytosis due to Pneumonia due to COVID-19 virus --> per pulm rx -> sp remdesivir --> wbc 11.9-->11 # Anemia due to chronic disease --> hgb goal is >7 --> transfuse prn --> ferritin is >1000 --> hold off on iron --> 10-->9.8->9-->8-->8.2-->9.4-->8.1-->9.9-->9.6-->9.5 # Elevated ddimer due to covid19++ --> duplex legs is negative --> underlying covid rx # Hypoxia -> due to covid19 --> steriods as needed # Hypoxemia --> rx same as above # Respiratory failure --> on vent/trach --> per pulm # Diabetes mellitus out of control --> hgb a1c goal <7 # Poor prognosis # Dvt ppx ivc filter once more stable Appreciate consultation and bowen RN Subjective Allergies: Coded Allergies: No Known Allergies (Unverified , 05/28/20) All Systems: reviewed and negative except above Subjective 06/10 nv, on vent, with ogt, on fentanyl and versed, plt stable 06/11 nv, vent adjusted is on ogt, meds reviewed 06/12 nv, vent, meds noted, labs noted, no bleeding, hgb 10.4 06/13 nv, is on vent, meds reviewed, no bleeding, cbc reviewed 06/14 nv, on vent, tachy, labs reviewed, gross hematuria, febrile overnight, abx 06/17 nv, on vent, labs noted, no major changes, feeling better overnight 06/18 nv, meds reviewed, labs noted, no major events, hgb 8.6 06/19 nv, remains intubated, with fluids, labs reviewed, meds noted 06/20 nv, intubated remains on restraints, meds noted as well, as labs 06/21 nv, remains on vent, on restraints, meds reviewed, labs noted 06/22: covering Dr. Del Cid no acute events 06/23 sedated, on vent, nv, intubated, meds reviewed, versed 06/24 nv, on vent, no night sweats, no bleeding, remains in icu 06/25 nv, on vent, icu, meds noted, no bleeding, comfortable 06/26 nv, on versed, icu, weaning parameters, labs noted 06/27 nv, overnight fighting vent, as per pulm fentanyl on board 06/28 nv, on vent, labs reviewed, as per pulm, meds noted 06/30 nv, icu, labs pending, is on fentanyl, versed, no new changes 07/01 nv, icu, is on vent, labs pending, no new changes per rn 07/02 nv, icu is on vent, labs noted, hgb is stable 07/03 nv, icu, is on vent, potential trrach when stable, cbc reviewed 07/04 icu, nv, labs are noted, stable for trach today bowen Rn Dl 07/05 icu, nv, on vent, with ng and picc in place, labs noted, s/p trach 07/07 icu, nv, on tv, no bleeding, labs noted, meds reviewed 07/08 icu, nv, on tv, labs reviewed, meds noted, no bleeding 07/09 icu, nv, meds noted, no bleeding, blood transfusion was completed 07/10 icu, nv, labs ntoed, no bleeding, hgb improved, hgb 7.8 07/11 icu, nv, labs reviewed, hgb is improved, for ivcf if stabilizes 07/12 icu, nv, labs reviewed, meds noted, no bleeding, remains on vent 07/13 icu, on vent, nv, no bleeding, labs reviewed, no major events, bowen rn 07/14 icu, on vent, nv, tolerating ngt feeds, bowen Rn, meds reviewed 07/15 icu, on vent, trach, tolerating ngt, meds noted, no bleeding Objective Objective Current Medications Medications (Trade) Dose Ordered Sig/Zelda Route PRN Reason Start Time Stop Time Status Last Admin Dose Admin Acetaminophen (Tylenol) 650 mg Q4H PRN NG Temp >100.5 06/29/20 10:15 07/29/20 10:14 07/08/20 18:26 Acetaminophen (Tylenol) 650 mg Q6H PRN NG Mild Pain (Pain Scale 1-3) 06/29/20 10:15 07/29/20 10:14 Chlorhexidine Gluconate (Inna-Hex 2%) 1 applic DAILY@2000 TOPIC 05/30/20 20:00 08/28/20 19:59 07/14/20 21:00 Dextrose (Dextrose 50%) 25 ml Q30M PRN IV Hypoglycemia 06/05/20 10:45 09/03/20 10:44 Dextrose (Dextrose 50%) 50 ml Q30M PRN IV Hypoglycemia 06/05/20 10:45 09/03/20 10:44 Fentanyl Citrate 250 ml @ 0 mls/hr Q24H IV 07/13/20 14:00 07/15/20 13:59 07/15/20 04:35 Furosemide (Lasix) 40 mg DAILY IV 06/22/20 09:00 07/22/20 08:59 07/14/20 08:21 Guaifenesin/ Codeine Phosphate (Robitussin with codeine) 5 ml Q6H PRN NG For Cough 07/14/20 14:15 08/13/20 14:14 07/14/20 14:20 Lansoprazole (Prevacid) 30 mg DAILY GT 07/10/20 09:00 08/09/20 08:59 07/14/20 08:23 Midazolam HCl 200 ml @ 0 mls/hr Q24H PRN IV To Patient Comfort 07/10/20 12:00 07/17/20 11:59 07/14/20 19:01 Midodrine (Pro-Amatine) 10 mg Q8HR GT 06/30/20 14:00 09/12/20 13:59 07/15/20 05:46 Norepinephrine Bitartrate 250 ml @ 0 mls/hr Q24H PRN IV For hypotension 07/14/20 18:45 07/17/20 18:40 Vitamin D (Vitamin D) 5,000 unit DAILY GT 06/28/20 09:00 07/28/20 08:59 07/14/20 08:22 Last 24 Hour Vital Signs Date Time Temp Pulse Resp B/P (MAP) Pulse Ox O2 Delivery O2 Flow Rate FiO2 07/15/20 06:21 109 28 07/15/20 06:15 111 33 127/81 (96) 94 07/15/20 06:00 115 33 142/80 (100) 94 07/15/20 05:09 102 17 50 07/15/20 05:00 102 18 111/69 (83) 99 07/15/20 04:35 26 120/75 Mechanical Ventilator 50 07/15/20 04:00 100.0 112 24 109/72 (84) 100 07/15/20 04:00 109 07/15/20 04:00 Mechanical Ventilator Mechanical Ventilator 07/15/20 04:00 24 117/77 Mechanical Ventilator 50 07/15/20 04:00 24 121/77 Endotracheal Tube 50 07/15/20 04:00 50 07/15/20 03:30 124 35 121/70 (87) 93 07/15/20 03:30 109 26 50 07/15/20 03:00 104 22 122/77 (92) 100 07/15/20 03:00 28 128/82 Mechanical Ventilator 50 07/15/20 03:00 24 117/77 Mechanical Ventilator 50 07/15/20 02:30 111 28 141/86 (104) 97 07/15/20 02:00 111 30 131/87 (102) 98 07/15/20 02:00 21 129/78 Mechanical Ventilator 50 07/15/20 02:00 22 128/78 Mechanical Ventilator 50 07/15/20 01:30 109 29 127/83 (98) 93 07/15/20 01:30 107 27 50 07/15/20 01:00 104 28 122/76 (91) 96 07/15/20 01:00 99.4 104 28 122/76 (91) 96 07/15/20 01:00 26 122/83 Mechanical Ventilator 50 07/15/20 01:00 27 127/83 Mechanical Ventilator 50 07/15/20 00:45 106 32 119/86 (97) 100 07/15/20 00:30 95 22 121/77 (92) 98 07/15/20 00:30 95 22 121/77 (92) 98 07/15/20 00:15 103 35 117/77 (90) 96 07/15/20 00:00 94 17 119/81 (94) 99 07/15/20 00:00 Mechanical Ventilator Mechanical Ventilator 07/15/20 00:00 50 07/15/20 00:00 23 122/78 Mechanical Ventilator 50 07/15/20 00:00 24 122/76 Mechanical Ventilator 50 07/15/20 00:00 94 17 119/81 (94) 99 07/15/20 00:00 110 07/14/20 23:30 98 25 116/70 (85) 98 07/14/20 23:04 108 29 50 07/14/20 23:00 98 25 115/78 (90) 100 07/14/20 23:00 23 116/75 Mechanical Ventilator 50 07/14/20 23:00 23 110/76 Mechanical Ventilator 50 07/14/20 22:30 99 18 112/79 (90) 99 07/14/20 22:00 107 28 109/71 (84) 98 07/14/20 22:00 23 121/76 Mechanical Ventilator 50 07/14/20 22:00 23 121/76 Mechanical Ventilator 50 07/14/20 21:30 103 21 120/75 (90) 99 07/14/20 21:00 105 25 118/74 (89) 98 07/14/20 21:00 22 110/68 Mechanical Ventilator 50 07/14/20 21:00 26 114/77 Mechanical Ventilator 50 07/14/20 21:00 105 25 118/74 (89) 98 07/14/20 20:39 108 37 50 07/14/20 20:30 107 28 114/91 (99) 100 07/14/20 20:00 94 07/14/20 20:00 98 18 94/63 (73) 100 07/14/20 20:00 98 18 94/63 (73) 100 07/14/20 20:00 99.0 07/14/20 20:00 19 104/68 Mechanical Ventilator 50 07/14/20 20:00 19 104/68 Mechanical Ventilator 50 07/14/20 20:00 Mechanical Ventilator Mechanical Ventilator 07/14/20 19:30 104 22 80 07/14/20 19:01 16 92/58 Mechanical Ventilator 50 07/14/20 19:01 16 92/58 Mechanical Ventilator 50 07/14/20 19:00 16 92/58 Mechanical Ventilator 50 07/14/20 19:00 103 16 102/74 (83) 96 07/14/20 18:45 95 15 92/58 (69) 100 07/14/20 18:30 96 15 92/58 (69) 100 07/14/20 18:15 99 15 91/62 (72) 99 07/14/20 18:00 16 101/62 Mechanical Ventilator 50 07/14/20 18:00 16 101/62 Mechanical Ventilator 50 07/14/20 18:00 99 15 101/62 (75) 98 07/14/20 17:49 97 15 93/59 (70) 99 07/14/20 17:45 97 15 89/55 (66) 99 07/14/20 17:30 50 07/14/20 17:30 99 15 91/56 (68) 99 07/14/20 17:29 50 07/14/20 17:15 101 15 95/49 (64) 100 07/14/20 17:00 15 95/49 Mechanical Ventilator 70 07/14/20 17:00 15 95/49 Mechanical Ventilator 70 07/14/20 17:00 102 16 101/64 (76) 100 07/14/20 16:45 104 15 102/61 (75) 100 07/14/20 16:45 70 07/14/20 16:30 98.7 106 19 103/73 (83) 100 07/14/20 16:15 106 15 98/59 (72) 100 07/14/20 16:00 Mechanical Ventilator Mechanical Ventilator 07/14/20 16:00 111 07/14/20 16:00 15 98/59 Mechanical Ventilator 80 07/14/20 16:00 15 98/59 Mechanical Ventilator 80 07/14/20 16:00 110 16 95/60 (72) 100 07/14/20 16:00 80 07/14/20 15:45 113 15 100/55 (70) 100 07/14/20 15:30 115 16 101/56 (71) 100 07/14/20 15:15 123 19 105/56 (72) 100 07/14/20 15:15 106 16 80 07/14/20 15:15 80 07/14/20 15:00 121 17 108/71 (83) 100 07/14/20 15:00 16 105/56 Mechanical Ventilator 90 07/14/20 15:00 16 105/56 Mechanical Ventilator 90 07/14/20 14:45 126 21 106/71 (83) 100 07/14/20 14:30 132 26 114/65 (81) 99 07/14/20 14:26 36 103/82 Mechanical Ventilator 90 07/14/20 14:20 90 07/14/20 14:20 90 07/14/20 14:15 123 23 103/82 (89) 100 07/14/20 14:00 119 25 90/57 (68) 99 07/14/20 14:00 24 90/57 Mechanical Ventilator 100 07/14/20 14:00 24 90/57 Mechanical Ventilator 100 07/14/20 13:46 123 19 91/55 (67) 75 07/14/20 13:00 30 110/58 Mechanical Ventilator 100 07/14/20 13:00 30 110/58 Mechanical Ventilator 100 07/14/20 13:00 124 25 110/58 (75) 93 07/14/20 12:30 119 32 119/73 (88) 97 07/14/20 12:22 30 117/76 Mechanical Ventilator 50 07/14/20 12:15 100 07/14/20 12:15 100 07/14/20 12:00 Mechanical Ventilator Mechanical Ventilator 07/14/20 12:00 98.5 110 25 116/76 (89) 100 07/14/20 12:00 30 119/73 Mechanical Ventilator 50 07/14/20 11:39 115 29 50 07/14/20 11:30 112 28 122/68 (86) 100 07/14/20 11:23 109 07/14/20 11:00 106 26 111/78 (89) 100 07/14/20 11:00 28 122/68 Mechanical Ventilator 50 07/14/20 11:00 28 122/68 Mechanical Ventilator 50 07/14/20 10:00 104 26 109/67 (81) 100 07/14/20 10:00 26 123/75 Mechanical Ventilator 50 07/14/20 10:00 26 123/75 Mechanical Ventilator 50 07/14/20 09:00 27 102/54 Mechanical Ventilator 50 07/14/20 09:00 27 102/54 Mechanical Ventilator 50 07/14/20 09:00 114 29 102/54 (70) 96 07/14/20 08:11 108 07/14/20 08:00 29 122/70 Mechanical Ventilator 50 07/14/20 08:00 29 122/70 Mechanical Ventilator 50 07/14/20 08:00 Mechanical Ventilator Mechanical Ventilator 07/14/20 08:00 50 07/14/20 08:00 98.3 112 29 127/73 (91) 96 07/14/20 07:09 111 28 50 07/14/20 07:00 109 27 118/73 (88) 96 07/14/20 07:00 27 118/73 Mechanical Ventilator 50 07/14/20 07:00 27 118/73 Mechanical Ventilator 50 07/14/20 06:31 111 30 07/14/20 06:00 111 30 122/61 (81) 96 07/14/20 06:00 30 122/61 Mechanical Ventilator 50 07/14/20 06:00 30 122/61 Mechanical Ventilator 50 07/14/20 05:00 115 33 131/55 (80) 94 07/14/20 05:00 33 131/55 Mechanical Ventilator 50 07/14/20 05:00 33 131/55 Mechanical Ventilator 50 07/14/20 04:00 Mechanical Ventilator Mechanical Ventilator 07/14/20 04:00 104 07/14/20 04:00 98.4 104 30 118/65 (82) 100 07/14/20 04:00 30 118/65 Mechanical Ventilator 50 07/14/20 04:00 30 115/65 Mechanical Ventilator 50 07/14/20 04:00 60 07/14/20 03:00 28 129/61 Non-Rebreather 50 07/14/20 03:00 28 129/61 Mechanical Ventilator 50 07/14/20 03:00 110 28 129/61 (83) 97 07/14/20 02:00 29 123/61 Mechanical Ventilator 50 07/14/20 02:00 29 123/61 Mechanical Ventilator 50 07/14/20 02:00 102 29 123/61 (81) 97 07/14/20 01:39 102 31 50 07/14/20 01:06 23 99/47 Mechanical Ventilator 50 07/14/20 01:00 90 27 99/47 (64) 100 07/14/20 01:00 27 99/47 Mechanical Ventilator 50 07/14/20 00:00 60 07/14/20 00:00 Mechanical Ventilator Mechanical Ventilator 07/14/20 00:00 99 07/14/20 00:00 26 95/56 Mechanical Ventilator 50 07/14/20 00:00 26 95/56 Mechanical Ventilator 50 07/14/21 00:00 98.4 95 26 95/56 (69) 99 2021 23:00 24 98/57 Mechanical Ventilator 50 07/13/20 23:00 24 98/57 Mechanical Ventilator 85 21 23:00 93 24 98/57 (71) 100 2021 22:00 121 31 109/70 (83) 93 2021 22:00 31 109/70 Mechanical Ventilator 50 07/13/20 22:00 31 109/70 Mechanical Ventilator 50 07/13/20 21:00 35 112/26 Mechanical Ventilator 50 21 21:00 35 112/56 Mechanical Ventilator 50 07/13/20 21:00 120 35 112/56 (74) 92 07/13/20 20:00 60 07/13/20 20:00 98.6 100 26 97/56 (70) 96 07/13/20 20:00 26 97/56 Mechanical Ventilator 50 07/13/20 20:00 26 97/56 Mechanical Ventilator 50 07/13/20 20:00 Mechanical Ventilator Mechanical Ventilator 07/13/20 19:32 102 07/13/20 19:26 114 40 50 07/13/ 19:00 102 28 93/58 (70) 100 07/13/20 19:00 28 93/58 Mechanical Ventilator 50 07/13/20 19:00 28 93/58 Mechanical Ventilator 50 07/13/20 18:00 28 97/62 Mechanical Ventilator 50 07/13/20 18:00 28 97/62 Mechanical Ventilator 50 07/13/20 18:00 97.2 91 28 97/62 (74) 98 07/13/20 17:45 50 07/13/20 17:00 28 112/68 Endotracheal Tube 60 07/13/20 17:00 28 112/68 Mechanical Ventilator 60 07/13/20 17:00 88 24 112/68 (83) 100 07/13/20 16:00 87 07/13/20 16:00 Mechanical Ventilator Mechanical Ventilator 07/13/20 16:00 60 07/13/20 16:00 23 104/48 Mechanical Ventilator 60 21 16:00 23 104/48 Mechanical Ventilator 60 21 16:00 86 23 104/48 (66) 100 07/13/20 15:15 91 26 60 2/21 15:00 24 107/57 Mechanical Ventilator 60 21 15:00 24 107/57 Mechanical Ventilator 24 07/13/20 15:00 97.8 100 27 107/57 (74) 99 21 14:58 25 109/48 Mechanical Ventilator 60 07/13/ 14:57 25 109/48 Mechanical Ventilator 60 07/13/ 14:57 31 109/48 Mechanical Ventilator 60 07/13/20 14:00 102 31 109/48 (68) 98 07/13/20 14:00 31 109/48 Mechanical Ventilator 60 07/13/20 14:00 31 109/48 Mechanical Ventilator 60 07/13/20 13:00 27 102/55 Mechanical Ventilator 60 07/13/20 13:00 27 102/55 Mechanical Ventilator 60 07/13/20 13:00 98.4 104 25 102/55 (71) 100 07/13/20 12:00 Mechanical Ventilator Mechanical Ventilator 07/13/20 12:00 31 91/49 Mechanical Ventilator 60 07/13/20 12:00 31 91/49 Mechanical Ventilator 60 07/13/20 12:00 108 07/13/20 12:00 60 07/13/20 12:00 107 37 91/49 (63) 99 07/13/20 11:45 110 34 60 07/13/20 11:00 97 30 100/52 (68) 99 07/13/20 11:00 32 100/52 Mechanical Ventilator 60 07/13/20 11:00 32 100/52 Mechanical Ventilator 60 07/13/20 10:00 98.1 100 27 106/54 (71) 99 07/13/20 10:00 30 106/54 Mechanical Ventilator 60 07/13/20 10:00 30 106/54 Mechanical Ventilator 60 07/13/ 09:00 90 26 99/86 (90) 99 07/13/20 09:00 26 99/86 Mechanical Ventilator 60 07/13/20 09:00 26 99/86 Mechanical Ventilator 60 07/13/20 08:00 96 07/13/20 08:00 60 07/13/20 08:00 97.9 94 30 101/42 (61) 100 07/13/20 08:00 25 101/42 Mechanical Ventilator 60 07/13/20 08:00 25 101/42 Mechanical Ventilator 60 07/13/20 08:00 Mechanical Ventilator Mechanical Ventilator 07/13/20 07:00 96 35 60 07/13/20 07:00 89 23 100/51 (67) 100 07/13/20 07:00 23 100/51 Mechanical Ventilator 50 07/13/20 07:00 23 100/51 Mechanical Ventilator 50 Intake and Output 07/14/20 07/15/20 19:00 07:00 Intake Total 1484.3267 ml 700 ml Output Total 1435 ml 215 ml Balance 49.3267 ml 485 ml Free Water 220 ml 30 ml IV Total 604.3267 ml 190 ml Tube Feeding 660 ml 480 ml Output Urine Total 1435 ml 215 ml Labs Test 07/13/20 05:45 07/14/20 09:09 07/14/20 11:05 07/14/20 17:10 White Blood Count 11.7 K/UL (4.8-10.8) 11.0 K/UL (4.8-10.8) Red Blood Count 3.38 M/UL (4.20-5.40) 3.42 M/UL (4.20-5.40) Hemoglobin 9.6 G/DL (12.0-16.0) 9.5 G/DL (12.0-16.0) Hematocrit 30.7 % (37.0-47.0) 31.6 % (37.0-47.0) Mean Corpuscular Volume 91 FL (80-99) 92 FL (80-99) Mean Corpuscular Hemoglobin 28.5 PG (27.0-31.0) 27.8 PG (27.0-31.0) Mean Corpuscular Hemoglobin Concent 31.4 G/DL (32.0-36.0) 30.1 G/DL (32.0-36.0) Red Cell Distribution Width 17.0 % (11.6-14.8) 17.5 % (11.6-14.8) Platelet Count 321 K/UL (150-450) 424 K/UL (150-450) Mean Platelet Volume 8.4 FL (6.5-10.1) 7.4 FL (6.5-10.1) Neutrophils (%) (Auto) 66.1 % (45.0-75.0) 63.4 % (45.0-75.0) Lymphocytes (%) (Auto) 19.5 % (20.0-45.0) 20.1 % (20.0-45.0) Monocytes (%) (Auto) 8.3 % (1.0-10.0) 7.1 % (1.0-10.0) Eosinophils (%) (Auto) 5.4 % (0.0-3.0) 8.2 % (0.0-3.0) Basophils (%) (Auto) 0.8 % (0.0-2.0) 1.2 % (0.0-2.0) Sodium Level 139 MMOL/L (136-145) 140 MMOL/L (136-145) Potassium Level 4.2 MMOL/L (3.5-5.1) 3.7 MMOL/L (3.5-5.1) Chloride Level 95 MMOL/L (98-107) 95 MMOL/L (98-107) Carbon Dioxide Level 39 MMOL/L (21-32) 41 MMOL/L (21-32) Anion Gap 6 mmol/L (5-15) 5 mmol/L (5-15) Blood Urea Nitrogen 9 mg/dL (7-18) 11 mg/dL (7-18) Creatinine 0.4 MG/DL (0.55-1.30) 0.5 MG/DL (0.55-1.30) Estimat Glomerular Filtration Rate > 60 mL/min (>60) > 60 mL/min (>60) Glucose Level 92 MG/DL (74-106) 140 MG/DL (74-106) Calcium Level 10.0 MG/DL (8.5-10.1) 10.1 MG/DL (8.5-10.1) Arterial Blood pH 7.400 (7.350-7.450) 7.422 (7.350-7.450) Arterial Blood Partial Pressure CO2 65.9 mmHg (35.0-45.0) 69.8 mmHg (35.0-45.0) Arterial Blood Partial Pressure O2 56.3 mmHg (75.0-100.0) 151.4 mmHg (75.0-100.0) Arterial Blood HCO3 39.9 mmol/L (22.0-26.0) 44.5 mmol/L (22.0-26.0) Arterial Blood Oxygen Saturation 87.1 % (95-100) 98.9 % (95-100) Arterial Blood Base Excess 12.7 (-2-2) 16.9 (-2-2) Jeremiah Test Positive Positive Total Bilirubin 1.0 MG/DL (0.2-1.0) Aspartate Amino Transf (AST/SGOT) 20 U/L (15-37) Alanine Aminotransferase (ALT/SGPT) 12 U/L (12-78) Alkaline Phosphatase 76 U/L (46-116) Total Protein 8.2 G/DL (6.4-8.2) Albumin 2.1 G/DL (3.4-5.0) Globulin 6.1 g/dL Albumin/Globulin Ratio 0.3 (1.0-2.7) Triglycerides Level 193 MG/DL (30-150) Height (Feet): 5 Height (Inches): 6.00 Weight (Pounds): 239 Objective GeNL: nv HEENT: ngt++ Pulm: vent/trach++ CV: rrr Abd: soft, nt, nd Ext: no cce Myron Condon MD Jul 15, 2020 06:39
--- NOTE | 2020-07-15 07:11 | NUR ---
NURSE HAND-OFF REPORT: Latest Vital Signs: Temperature 100.0 , Pulse 111 , B/P 127 /81 , Respiratory Rate 33 , O2 SAT 94 , Mechanical Ventilator, O2 Flow Rate . Vital Sign Comment: hr 90-11 EKG Rhythm: Sinus Tachycardia Rhythm change?: Jesus TOLLIVER Notified?: Jesus EDWARDS MD Response: Latest Meyers Fall Score: 70 Fall Risk: High Risk Safety Measures: Call light Within Reach, Bed Alarm Zone 1, Side Rails Side Rails x2, Bed position Low and Locked. Fall Precautions: Yellow Socks Report given to Dagmar Daniels.
--- NOTE | 2020-07-15 07:25 | NUR ---
RESPIRATORY NOTE: PT received on AC/VC: 15, 600 50%,+5. Alarms are on and audible. Vent circuit is secure and out of the way. Airway is secure and patent. No s/s of acute respiratory distress noted at this time. Will continue to closely monitor.
[2020-07-15] MEDS: Versed 100mg/NS 200ml 200 ML IV PRN ×2 (08:17→19:45)
--- NOTE | 2020-07-15 08:36 | Nephrology Progress Note ---
Assessment/Plan Problem List: (1) DEVENDRA (acute kidney injury) (2) Morbid obesity (3) Diabetes mellitus out of control (4) Pneumonia due to COVID-19 virus (5) Respiratory failure Assessment Acute renal failure Obstructive uropathy, clogged Lennon Respiratory failure COVID-19 pneumonia Morbid obesity Plan July 15: Full code. FiO2 50%. Intubated on ventilator. No labs drawn today. Continue per consultants. July 14: Status quo. FiO2 50%. Labs reviewed. Renal parameters stable. Continue per current treatment plan and consultants. Medication list reviewed. July 13: FiO2 60% unchanged. Labs reviewed. Renal parameters stable. Medication list reviewed. Continue per consultants. July 12: Full code. Labs reviewed. Normal electrolytes addressed. Continue per pulmonary. Medication list reviewed. July 11: Remains full code. On ventilator. FiO2 down to 65%. Renal parameters stable. Low magnesium addressed. Continue her current management. July 10: Full code. On ventilator. FiO2 70%. Hemoglobin mid sevens. Renal parameters stable. Continue per consultants. July 09: Labs reviewed. Renal parameters stable. FiO2 80% unchanged. Continue per pulmonary. July 08: Labs reviewed. Renal parameters and electrolytes stable. ABG suggestive of high PCO2. At this time patient is on FiO2 of 80%. Continue per pulmonary. Continue to monitor renal parameters. July 07: No CHEM panel drawn today. More potassium given. Continue to monitor renal parameters. Continue per consultants. Discussed with RAKEL Veras. July 06: Low potassium addressed. Albumin bolus for low BP given. Patient remains full code. Continue to monitor electrolytes and renal parameters. Continue per consultants. Hemoglobin low today, transfusion per edi specialist. July 05: Trach to vent. FiO2 80%. Renal parameters stable. PCO2 remains high at 44. Continue to monitor renal parameters. July 04: Patient now trach. Full code. Labs reviewed. Renal parameters stable. Low magnesium addressed. July 03: Intubated. Full code. Labs reviewed. Abnormal electrolytes addressed. Continue per consultants. Overall status unchanged. July 02: Remains intubated. Remains full code. Remains on FiO2 of 70%. Labs reviewed. Abnormal electrolytes addressed. Continue per pulmonary. July 01: Remains on 70% FiO2. Full code. Intubated on ventilator. Retaining CO2. Discussed with RN. Will do ABG today. Albumin bolus given. 1 dose of Diamox given. June 30: Status quo. Labs reviewed. Abnormal electrolytes addressed. Remains full code. Remains on ventilator. Magnesium sulfate 4 gram IVPB given. June 29: Full code. Intubated on ventilator. Labs reviewed. Stable from renal standpoint of view. Continue per consultants. June 28: Remains full code. Remains intubated on ventilator. Labs reviewed. Vitamin D supplement ordered. Continue to monitor renal parameters. Continue per consultants. June 27: Remains full code. Intubated on ventilator. Labs reviewed. Abnormal electrolyte addressed. Continue to monitor renal parameters and el ectrolytes. Continue per consultants. June 26: Labs reviewed. Remains full code. Remains intubated. Back on NGT feeding. Continue to monitor renal parameters. June 25: Labs reviewed. Renal parameters stable. Remains full code. Due to positional status patient could not be fed via NG tube. Starting TPN? Is being entertained. Continue per consultants. June 24: Labs reviewed. Renal parameters stable. Remains full code. Remains intubated on ventilator. Continue per consultants. June 23: Labs reviewed. Renal parameters stable. Discussed with RN. Abnormal electrolyte addressed. Remains full code. Remains on ventilator. Continue per consultants. June 22: Labs reviewed. Low potassium addressed. Discussed with RAKEL Moran. Patient full code. Remains on ventilator. Continue to monitor renal parameters. June 21. Labs reviewed. Abnormal electrolyte addressed. Full code. Remains on ventilator. Medication list reviewed. Continue per pulmonary management. DC IV fluid, resume Lasix daily, check chest x-ray. June 20: Labs reviewed. Abnormal electrolytes. Patient remains full code. Continue per consultants. Noted and addressed June 19: Labs reviewed. Abnormal electrolytes noted and addressed. Remains intubated on ventilator. Remains full code. June 18: Labs reviewed. Remains intubated on ventilator. Full code. Abnormal electrolyte addressed. Continue as is. June 17: Labs reviewed. Abnormal electrolytes addressed. Patient remains full code and intubated on ventilator. Continue per consultants. Renal parameters are within normal limits. June 16: Labs reviewed. Potassium chloride replaced. Remains full code. Remains intubated on ventilator. Continue per consultants. Continue to monitor renal parameters. June 15: Labs reviewed. Serum creatinine 1. Stable from renal standpoint to view. Continue per consultants. June 14: Labs reviewed. Full code. Serum creatinine of 3.5 down to 1.4. Low potassium addressed. Continue per current treatment plan. Continue to monitor renal parameters. Midodrine started. Albumin bolus given. Previously: DC Lasix drip Increase Protonix dose Monitor renal parameters, electrolytes Per orders Subjective ROS Limited/Unobtainable: Yes Objective Objective Last 24 Hour Vital Signs Date Time Temp Pulse Resp B/P (MAP) Pulse Ox O2 Delivery O2 Flow Rate FiO2 07/15/20 08:17 30 121/84 Mechanical Ventilator 50 07/15/20 07:00 108 25 125/79 (94) 98 07/15/20 06:21 109 28 07/15/20 06:15 111 33 127/81 (96) 94 07/15/20 06:00 24 126/78 Mechanical Ventilator 50 07/15/20 06:00 28 124/82 Mechanical Ventilator 50 07/15/20 06:00 115 33 142/80 (100) 94 07/15/20 05:09 102 17 50 07/15/20 05:00 102 18 111/69 (83) 99 07/15/20 05:00 28 127/81 Mechanical Ventilator 50 07/15/20 05:00 28 121/77 Mechanical Ventilator 50 07/15/20 04:35 26 120/75 Mechanical Ventilator 50 07/15/20 04:00 100.0 112 24 109/72 (84) 100 07/15/20 04:00 109 07/15/20 04:00 Mechanical Ventilator Mechanical Ventilator 07/15/20 04:00 24 117/77 Mechanical Ventilator 50 07/15/20 04:00 24 121/77 Endotracheal Tube 50 07/15/20 04:00 50 07/15/20 03:30 124 35 121/70 (87) 93 07/15/20 03:30 109 26 50 07/15/20 03:00 104 22 122/77 (92) 100 07/15/20 03:00 28 128/82 Mechanical Ventilator 50 07/15/20 03:00 24 117/77 Mechanical Ventilator 50 07/15/20 02:30 111 28 141/86 (104) 97 07/15/20 02:00 111 30 131/87 (102) 98 07/15/20 02:00 21 129/78 Mechanical Ventilator 50 07/15/20 02:00 22 128/78 Mechanical Ventilator 50 07/15/20 01:30 109 29 127/83 (98) 93 07/15/20 01:30 107 27 50 2/22/21 01:00 104 28 122/76 (91) 96 07/15/20 01:00 99.4 104 28 122/76 (91) 96 07/15/20 01:00 26 122/83 Mechanical Ventilator 50 07/15/20 01:00 27 127/83 Mechanical Ventilator 50 07/15/20 00:45 106 32 119/86 (97) 100 07/15/20 00:30 95 22 121/77 (92) 98 07/15/20 00:30 95 22 121/77 (92) 98 07/15/20 00:15 103 35 117/77 (90) 96 07/15/20 00:00 94 17 119/81 (94) 99 07/15/20 00:00 Mechanical Ventilator Mechanical Ventilator 07/15/20 00:00 50 07/15/20 00:00 23 122/78 Mechanical Ventilator 50 07/15/20 00:00 24 122/76 Mechanical Ventilator 50 07/15/20 00:00 94 17 119/81 (94) 99 07/15/20 00:00 110 07/14/20 23:30 98 25 116/70 (85) 98 07/14/20 23:04 108 29 50 07/14/20 23:00 98 25 115/78 (90) 100 07/14/20 23:00 23 116/75 Mechanical Ventilator 50 07/14/20 23:00 23 110/76 Mechanical Ventilator 50 07/14/20 22:30 99 18 112/79 (90) 99 07/14/20 22:00 107 28 109/71 (84) 98 07/14/20 22:00 23 121/76 Mechanical Ventilator 50 07/14/20 22:00 23 121/76 Mechanical Ventilator 50 07/14/20 21:30 103 21 120/75 (90) 99 07/14/20 21:00 105 25 118/74 (89) 98 07/14/20 21:00 22 110/68 Mechanical Ventilator 50 07/14/20 21:00 26 114/77 Mechanical Ventilator 50 07/14/20 21:00 105 25 118/74 (89) 98 07/14/20 20:39 108 37 50 07/14/20 20:30 107 28 114/91 (99) 100 07/14/20 20:00 94 07/14/20 20:00 98 18 94/63 (73) 100 07/14/20 20:00 98 18 94/63 (73) 100 07/14/20 20:00 99.0 07/14/20 20:00 19 104/68 Mechanical Ventilator 50 07/14/20 20:00 19 104/68 Mechanical Ventilator 50 07/14/20 20:00 Mechanical Ventilator Mechanical Ventilator 07/14/20 19:30 104 22 80 07/14/20 19:01 16 92/58 Mechanical Ventilator 50 07/14/20 19:01 16 92/58 Mechanical Ventilator 50 07/14/20 19:00 16 92/58 Mechanical Ventilator 50 07/14/20 19:00 103 16 102/74 (83) 96 07/14/20 18:45 95 15 92/58 (69) 100 07/14/20 18:30 96 15 92/58 (69) 100 07/14/20 18:15 99 15 91/62 (72) 99 07/14/20 18:00 16 101/62 Mechanical Ventilator 50 07/14/20 18:00 16 101/62 Mechanical Ventilator 50 07/14/20 18:00 99 15 101/62 (75) 98 07/14/20 17:49 97 15 93/59 (70) 99 07/14/20 17:45 97 15 89/55 (66) 99 07/14/20 17:30 50 07/14/20 17:30 99 15 91/56 (68) 99 07/14/20 17:29 50 07/14/20 17:15 101 15 95/49 (64) 100 07/14/20 17:00 15 95/49 Mechanical Ventilator 70 07/14/20 17:00 15 95/49 Mechanical Ventilator 70 07/14/20 17:00 102 16 101/64 (76) 100 07/14/20 16:45 104 15 102/61 (75) 100 07/14/20 16:45 70 07/14/20 16:30 98.7 106 19 103/73 (83) 100 07/14/20 16:15 106 15 98/59 (72) 100 07/14/20 16:00 Mechanical Ventilator Mechanical Ventilator 07/14/20 16:00 111 07/14/20 16:00 15 98/59 Mechanical Ventilator 80 07/14/20 16:00 15 98/59 Mechanical Ventilator 80 07/14/20 16:00 110 16 95/60 (72) 100 07/14/20 16:00 80 07/14/20 15:45 113 15 100/55 (70) 100 07/14/20 15:30 115 16 101/56 (71) 100 07/14/20 15:15 123 19 105/56 (72) 100 07/14/20 15:15 106 16 80 07/14/20 15:15 80 07/14/20 15:00 121 17 108/71 (83) 100 07/14/20 15:00 16 105/56 Mechanical Ventilator 90 07/14/20 15:00 16 105/56 Mechanical Ventilator 90 07/14/20 14:45 126 21 106/71 (83) 100 07/14/20 14:30 132 26 114/65 (81) 99 07/14/20 14:26 36 103/82 Mechanical Ventilator 90 07/14/20 14:20 90 07/14/20 14:20 90 07/14/20 14:15 123 23 103/82 (89) 100 07/14/20 14:00 119 25 90/57 (68) 99 07/14/20 14:00 24 90/57 Mechanical Ventilator 100 07/14/20 14:00 24 90/57 Mechanical Ventilator 100 07/14/20 13:46 123 19 91/55 (67) 75 07/14/20 13:00 30 110/58 Mechanical Ventilator 100 07/14/20 13:00 30 110/58 Mechanical Ventilator 100 07/14/20 13:00 124 25 110/58 (75) 93 07/14/20 12:30 119 32 119/73 (88) 97 07/14/20 12:22 30 117/76 Mechanical Ventilator 50 07/14/20 12:15 100 07/14/20 12:15 100 07/14/20 12:00 Mechanical Ventilator Mechanical Ventilator 07/14/20 12:00 98.5 110 25 116/76 (89) 100 07/14/20 12:00 30 119/73 Mechanical Ventilator 50 07/14/20 11:39 115 29 50 07/14/20 11:30 112 28 122/68 (86) 100 07/14/20 11:23 109 07/14/20 11:00 106 26 111/78 (89) 100 07/14/20 11:00 28 122/68 Mechanical Ventilator 50 07/14/20 11:00 28 122/68 Mechanical Ventilator 50 07/14/20 10:00 104 26 109/67 (81) 100 07/14/20 10:00 26 123/75 Mechanical Ventilator 50 07/14/20 10:00 26 123/75 Mechanical Ventilator 50 07/14/20 09:00 27 102/54 Mechanical Ventilator 50 07/14/20 09:00 27 102/54 Mechanical Ventilator 50 07/14/20 09:00 114 29 102/54 (70) 96 Intake and Output 07/14/20 07/15/20 19:00 07:00 Intake Total 1484.3267 ml 790 ml Output Total 1435 ml 245 ml Balance 49.3267 ml 545 ml Free Water 220 ml 30 ml IV Total 604.3267 ml 220 ml Tube Feeding 660 ml 540 ml Output Urine Total 1435 ml 245 ml Current Medications Medications (Trade) Dose Ordered Sig/Zelda Route PRN Reason Start Time Stop Time Status Last Admin Dose Admin Acetaminophen (Tylenol) 650 mg Q4H PRN NG Temp >100.5 06/29/20 10:15 07/29/20 10:14 07/08/20 18:26 Acetaminophen (Tylenol) 650 mg Q6H PRN NG Mild Pain (Pain Scale 1-3) 06/29/20 10:15 07/29/20 10:14 Chlorhexidine Gluconate (Inna-Hex 2%) 1 applic DAILY@2000 TOPIC 05/30/20 20:00 08/28/20 19:59 07/14/20 21:00 Dextrose (Dextrose 50%) 25 ml Q30M PRN IV Hypoglycemia 06/05/20 10:45 09/03/20 10:44 Dextrose (Dextrose 50%) 50 ml Q30M PRN IV Hypoglycemia 06/05/20 10:45 09/03/20 10:44 Fentanyl Citrate 250 ml @ 0 mls/hr Q24H IV 07/13/20 14:00 07/15/20 13:59 07/15/20 04:35 Furosemide (Lasix) 40 mg DAILY IV 06/22/20 09:00 07/22/20 08:59 07/14/20 08:21 Guaifenesin/ Codeine Phosphate (Robitussin with codeine) 5 ml Q6H PRN NG For Cough 07/14/20 14:15 08/13/20 14:14 07/14/20 14:20 Lansoprazole (Prevacid) 30 mg DAILY GT 07/10/20 09:00 08/09/20 08:59 07/14/20 08:23 Midazolam HCl 200 ml @ 0 mls/hr Q24H PRN IV To Patient Comfort 07/10/20 12:00 07/17/20 11:59 07/15/20 08:17 Midodrine (Pro-Amatine) 10 mg Q8HR GT 06/30/20 14:00 09/12/20 13:59 07/15/20 05:46 Norepinephrine Bitartrate 250 ml @ 0 mls/hr Q24H PRN IV For hypotension 07/14/20 18:45 07/17/20 18:40 Vitamin D (Vitamin D) 5,000 unit DAILY GT 06/28/20 09:00 07/28/20 08:59 07/14/20 08:22 Laboratory Tests 07/14/20 09:09: Arterial Blood pH 7.400, Arterial Blood Partial Pressure CO2 65.9*H, Arterial Blood Partial Pressure O2 56.3L, Arterial Blood HCO3 39.9H, Arterial Blood Oxygen Saturation 87.1*L, Arterial Blood Base Excess 12.7*H, Jeremiah Test Positive 07/14/20 11:05: White Blood Count 11.0H, Red Blood Count 3.42L, Hemoglobin 9.5L, Hematocrit 31.6L, Mean Corpuscular Volume 92, Mean Corpuscular Hemoglobin 27.8, Mean Corpuscular Hemoglobin Concent 30.1L, Red Cell Distribution Width 17.5H, Platelet Count 424, Mean Platelet Volume 7.4, Neutrophils (%) (Auto) 63.4, Lymphocytes (%) (Auto) 20.1, Monocytes (%) (Auto) 7.1, Eosinophils (%) (Auto) 8.2H, Basophils (%) (Auto) 1.2, Sodium Level 140, Potassium Level 3.7, Chloride Level 95L, Carbon Dioxide Level 41*H, Anion Gap 5, Blood Urea Nitrogen 11, Creatinine 0.5L, Estimat Glomerular Filtration Rate > 60, Glucose Level 140H, Calcium Level 10.1, Total Bilirubin 1.0, Aspartate Amino Transf (AST/SGOT) 20, Alanine Aminotransferase (ALT/SGPT) 12, Alkaline Phosphatase 76, Total Protein 8.2, Albumin 2.1L, Globulin 6.1, Albumin/Globulin Ratio 0.3L, Triglycerides Level 193H 07/14/20 17:10: Arterial Blood pH 7.422, Arterial Blood Partial Pressure CO2 69.8*H, Arterial Blood Partial Pressure O2 151.4H, Arterial Blood HCO3 44.5*H, Arterial Blood Oxygen Saturation 98.9, Arterial Blood Base Excess 16.9*H, Jeremiah Test Positive Height (Feet): 5 Height (Inches): 6.00 Weight (Pounds): 239 General Appearance: no apparent distress EENT: other - Trach to vent Cardiovascular: tachycardia Respiratory/Chest: decreased breath sounds Abdomen: distended Rigo Tyler MD Jul 15, 2020 08:36
--- NOTE | 2020-07-15 09:12 | NUR ---
RD ASSESSMENT & RECOMMENDATIONS SEE CARE ACTIVITY FOR COMPLETE ASSESSMENT DAILY ESTIMATED NEEDS: Needs based on Critical care, obesity 11-14kcal/kg actual body wt (140kg) kcals/kg 6494-8118 total kcals 1.5-2.0g prot/kg IBW (64.5kg) g protein/kg 96-129 g total protein 25-30ml/kg abw (83kg) mL/kg 6656-2260 total fluid mLs NUTRITION DIAGNOSIS: Swallowing difficulty R/T respiratory failure as evidenced by pt now s/p trach placement (07/04), sedated, on NGT feeds. CURRENT TF: Vital 1.2 @60 ml ENTERAL NUTRITION RECOMMENDATIONS: Glucerna 1.2 @ 55ml/hr x 24 hrs + Prosource 1pkt BID to provide 1320ml, 1584kcal, 79g+22g prot, 1063ml free water * As medically appropriate, initiate Glucerna 1.2 @ 25ml/hr x 6hrs * Advance 10ml q 4-6 hrs as tolerated to goal rate. * Add Prosource 1pkt BID (additional 22g prot) to meet protein needs * HOB over 30 degrees/ water flush per MD ADDITIONAL RECOMMENDATIONS: * Calibrated bedscale wt * Monitor Propofol rate, need for TF adjustment-> now off * Monitor BGs closely : now improved, on NISS only * Pt w/ rectal tube- Colace and Miralax now dc'ed * Monitor NPO status: NGT feeds resumed . .
--- NOTE | 2020-07-15 10:14 | Pulmonology Progress Note ---
Subjective ROS Limited/Unobtainable: Yes Interval Events: S/p tracheostomy 07/04/20 Constitutional: Reports: fever, other - T=100 HEENT: Repors: no symptoms Respiratory: Reports: no symptoms Cardiovascular: Reports: no symptoms Gastrointestinal/Abdominal: Reports: no symptoms Genitourinary: Reports: no symptoms Allergies: Coded Allergies: No Known Allergies (Unverified , 05/28/20) All Systems: reviewed and negative except above Objective Last 24 Hour Vital Signs Date Time Temp Pulse Resp B/P (MAP) Pulse Ox O2 Delivery O2 Flow Rate FiO2 07/15/20 08:17 30 121/84 Mechanical Ventilator 50 07/15/20 07:25 102 24 50 07/15/20 07:00 108 25 125/79 (94) 98 07/15/20 06:21 109 28 07/15/20 06:15 111 33 127/81 (96) 94 07/15/20 06:00 24 126/78 Mechanical Ventilator 50 07/15/20 06:00 28 124/82 Mechanical Ventilator 50 07/15/20 06:00 115 33 142/80 (100) 94 07/15/20 05:09 102 17 50 07/15/20 05:00 102 18 111/69 (83) 99 07/15/20 05:00 28 127/81 Mechanical Ventilator 50 07/15/20 05:00 28 121/77 Mechanical Ventilator 50 07/15/20 04:35 26 120/75 Mechanical Ventilator 50 07/15/20 04:00 100.0 112 24 109/72 (84) 100 07/15/20 04:00 109 07/15/20 04:00 Mechanical Ventilator Mechanical Ventilator 07/15/20 04:00 24 117/77 Mechanical Ventilator 50 07/15/20 04:00 24 121/77 Endotracheal Tube 50 07/15/20 04:00 50 07/15/20 03:30 124 35 121/70 (87) 93 07/15/20 03:30 109 26 50 07/15/20 03:00 104 22 122/77 (92) 100 07/15/20 03:00 28 128/82 Mechanical Ventilator 50 07/15/20 03:00 24 117/77 Mechanical Ventilator 50 07/15/20 02:30 111 28 141/86 (104) 97 07/15/20 02:00 111 30 131/87 (102) 98 07/15/20 02:00 21 129/78 Mechanical Ventilator 50 07/15/20 02:00 22 128/78 Mechanical Ventilator 50 07/15/20 01:30 109 29 127/83 (98) 93 07/15/20 01:30 107 27 50 07/15/20 01:00 104 28 122/76 (91) 96 07/15/20 01:00 99.4 104 28 122/76 (91) 96 07/15/20 01:00 26 122/83 Mechanical Ventilator 50 07/15/20 01:00 27 127/83 Mechanical Ventilator 50 07/15/20 00:45 106 32 119/86 (97) 100 07/15/20 00:30 95 22 121/77 (92) 98 07/15/20 00:30 95 22 121/77 (92) 98 07/15/20 00:15 103 35 117/77 (90) 96 07/15/20 00:00 94 17 119/81 (94) 99 07/15/20 00:00 Mechanical Ventilator Mechanical Ventilator 07/15/20 00:00 50 07/15/20 00:00 23 122/78 Mechanical Ventilator 50 07/15/20 00:00 24 122/76 Mechanical Ventilator 50 07/15/20 00:00 94 17 119/81 (94) 99 07/15/20 00:00 110 07/14/20 23:30 98 25 116/70 (85) 98 07/14/20 23:04 108 29 50 07/14/20 23:00 98 25 115/78 (90) 100 07/14/20 23:00 23 116/75 Mechanical Ventilator 50 07/14/20 23:00 23 110/76 Mechanical Ventilator 50 07/14/20 22:30 99 18 112/79 (90) 99 07/14/20 22:00 107 28 109/71 (84) 98 07/14/20 22:00 23 121/76 Mechanical Ventilator 50 07/14/20 22:00 23 121/76 Mechanical Ventilator 50 07/14/20 21:30 103 21 120/75 (90) 99 07/14/20 21:00 105 25 118/74 (89) 98 07/14/20 21:00 22 110/68 Mechanical Ventilator 50 07/14/20 21:00 26 114/77 Mechanical Ventilator 50 07/14/20 21:00 105 25 118/74 (89) 98 07/14/20 20:39 108 37 50 07/14/20 20:30 107 28 114/91 (99) 100 07/14/20 20:00 94 07/14/20 20:00 98 18 94/63 (73) 100 07/14/20 20:00 98 18 94/63 (73) 100 07/14/20 20:00 99.0 07/14/20 20:00 19 104/68 Mechanical Ventilator 50 07/14/20 20:00 19 104/68 Mechanical Ventilator 50 07/14/20 20:00 Mechanical Ventilator Mechanical Ventilator 07/14/20 19:30 104 22 80 07/14/20 19:01 16 92/58 Mechanical Ventilator 50 07/14/20 19:01 16 92/58 Mechanical Ventilator 50 07/14/20 19:00 16 92/58 Mechanical Ventilator 50 07/14/20 19:00 103 16 102/74 (83) 96 07/14/20 18:45 95 15 92/58 (69) 100 07/14/20 18:30 96 15 92/58 (69) 100 07/14/20 18:15 99 15 91/62 (72) 99 07/14/20 18:00 16 101/62 Mechanical Ventilator 50 07/14/20 18:00 16 101/62 Mechanical Ventilator 50 07/14/20 18:00 99 15 101/62 (75) 98 07/14/20 17:49 97 15 93/59 (70) 99 07/14/20 17:45 97 15 89/55 (66) 99 07/14/20 17:30 50 07/14/20 17:30 99 15 91/56 (68) 99 07/14/20 17:29 50 07/14/20 17:15 101 15 95/49 (64) 100 07/14/20 17:00 15 95/49 Mechanical Ventilator 70 07/14/20 17:00 15 95/49 Mechanical Ventilator 70 07/14/20 17:00 102 16 101/64 (76) 100 07/14/20 16:45 104 15 102/61 (75) 100 07/14/20 16:45 70 07/14/20 16:30 98.7 106 19 103/73 (83) 100 07/14/20 16:15 106 15 98/59 (72) 100 07/14/20 16:00 Mechanical Ventilator Mechanical Ventilator 07/14/20 16:00 111 07/14/20 16:00 15 98/59 Mechanical Ventilator 80 07/14/20 16:00 15 98/59 Mechanical Ventilator 80 07/14/20 16:00 110 16 95/60 (72) 100 07/14/20 16:00 80 07/14/20 15:45 113 15 100/55 (70) 100 07/14/20 15:30 115 16 101/56 (71) 100 07/14/20 15:15 123 19 105/56 (72) 100 07/14/20 15:15 106 16 80 07/14/20 15:15 80 07/14/20 15:00 121 17 108/71 (83) 100 07/14/20 15:00 16 105/56 Mechanical Ventilator 90 07/14/20 15:00 16 105/56 Mechanical Ventilator 90 07/14/20 14:45 126 21 106/71 (83) 100 07/14/20 14:30 132 26 114/65 (81) 99 07/14/20 14:26 36 103/82 Mechanical Ventilator 90 07/14/20 14:20 90 07/14/20 14:20 90 07/14/20 14:15 123 23 103/82 (89) 100 07/14/20 14:00 119 25 90/57 (68) 99 07/14/20 14:00 24 90/57 Mechanical Ventilator 100 07/14/20 14:00 24 90/57 Mechanical Ventilator 100 07/14/20 13:46 123 19 91/55 (67) 75 07/14/20 13:00 30 110/58 Mechanical Ventilator 100 07/14/20 13:00 30 110/58 Mechanical Ventilator 100 07/14/20 13:00 124 25 110/58 (75) 93 07/14/20 12:30 119 32 119/73 (88) 97 07/14/20 12:22 30 117/76 Mechanical Ventilator 50 07/14/20 12:15 100 07/14/20 12:15 100 07/14/20 12:00 Mechanical Ventilator Mechanical Ventilator 07/14/20 12:00 98.5 110 25 116/76 (89) 100 07/14/20 12:00 30 119/73 Mechanical Ventilator 50 07/14/20 11:39 115 29 50 07/14/20 11:30 112 28 122/68 (86) 100 07/14/20 11:23 109 07/14/20 11:00 106 26 111/78 (89) 100 07/14/20 11:00 28 122/68 Mechanical Ventilator 50 07/14/20 11:00 28 122/68 Mechanical Ventilator 50 Intake and Output 07/14/20 07/15/20 19:00 07:00 Intake Total 1484.3267 ml 790 ml Output Total 1435 ml 245 ml Balance 49.3267 ml 545 ml Free Water 220 ml 30 ml IV Total 604.3267 ml 220 ml Tube Feeding 660 ml 540 ml Output Urine Total 1435 ml 245 ml General Appearance: no acute distress HEENT: normocephalic, status post trach Respiratory: chest wall non-tender Cardiovascular: normal peripheral pulses Abdomen: normal bowel sounds Laboratory Tests 07/14/20 11:05: White Blood Count 11.0H, Red Blood Count 3.42L, Hemoglobin 9.5L, Hematocrit 31.6L, Mean Corpuscular Volume 92, Mean Corpuscular Hemoglobin 27.8, Mean Corpuscular Hemoglobin Concent 30.1L, Red Cell Distribution Width 17.5H, Platelet Count 424, Mean Platelet Volume 7.4, Neutrophils (%) (Auto) 63.4, Lymphocytes (%) (Auto) 20.1, Monocytes (%) (Auto) 7.1, Eosinophils (%) (Auto) 8.2H, Basophils (%) (Auto) 1.2, Sodium Level 140, Potassium Level 3.7, Chloride Level 95L, Carbon Dioxide Level 41*H, Anion Gap 5, Blood Urea Nitrogen 11, Creatinine 0.5L, Estimat Glomerular Filtration Rate > 60, Glucose Level 140H, Calcium Level 10.1, Total Bilirubin 1.0, Aspartate Amino Transf (AST/SGOT) 20, Alanine Aminotransferase (ALT/SGPT) 12, Alkaline Phosphatase 76, Total Protein 8.2, Albumin 2.1L, Globulin 6.1, Albumin/Globulin Ratio 0.3L, Triglycerides Level 193H 07/14/20 17:10: Arterial Blood pH 7.422, Arterial Blood Partial Pressure CO2 69.8*H, Arterial Blood Partial Pressure O2 151.4H, Arterial Blood HCO3 44.5*H, Arterial Blood Oxygen Saturation 98.9, Arterial Blood Base Excess 16.9*H, Jeremiah Test Positive Current Medications Medications (Trade) Dose Ordered Sig/Zelda Route PRN Reason Start Time Stop Time Status Last Admin Dose Admin Acetaminophen (Tylenol) 650 mg Q4H PRN NG Temp >100.5 06/29/20 10:15 07/29/20 10:14 07/08/20 18:26 Acetaminophen (Tylenol) 650 mg Q6H PRN NG Mild Pain (Pain Scale 1-3) 06/29/20 10:15 07/29/20 10:14 Chlorhexidine Gluconate (Inna-Hex 2%) 1 applic DAILY@2000 TOPIC 05/30/20 20:00 08/28/20 19:59 07/14/20 21:00 Dextrose (Dextrose 50%) 25 ml Q30M PRN IV Hypoglycemia 06/05/20 10:45 09/03/20 10:44 Dextrose (Dextrose 50%) 50 ml Q30M PRN IV Hypoglycemia 06/05/20 10:45 09/03/20 10:44 Fentanyl Citrate 250 ml @ 0 mls/hr Q24H IV 07/13/20 14:00 07/15/20 13:59 07/15/20 04:35 Furosemide (Lasix) 40 mg DAILY IV 06/22/20 09:00 07/22/20 08:59 07/14/20 08:21 Guaifenesin/ Codeine Phosphate (Robitussin with codeine) 5 ml Q6H PRN NG For Cough 07/14/20 14:15 08/13/20 14:14 07/14/20 14:20 Lansoprazole (Prevacid) 30 mg DAILY GT 07/10/20 09:00 08/09/20 08:59 07/14/20 08:23 Midazolam HCl 200 ml @ 0 mls/hr Q24H PRN IV To Patient Comfort 07/10/20 12:00 07/17/20 11:59 07/15/20 08:17 Midodrine (Pro-Amatine) 10 mg Q8HR GT 06/30/20 14:00 09/12/20 13:59 07/15/20 05:46 Norepinephrine Bitartrate 250 ml @ 0 mls/hr Q24H PRN IV For hypotension 07/14/20 18:45 07/17/20 18:40 Vitamin D (Vitamin D) 5,000 unit DAILY GT 06/28/20 09:00 07/28/20 08:59 07/14/20 08:22 Assessment/Plan Assessment/Plan 1. COVID-19 pneumonia -Intubated 05/28/20 - We will continue broad-spectrum antibiotics. -s/p solumedrol, Rocephin -Continue PEEP 6 ->7 - Peak airway pressures high; 38 - FiO2 100% -> 90 ->80->60 ->40 ->80 ->100 ->70 ->60 -> 50%; PEEP 7 ->5 -will continue OGT feeding 2. Hyponatremia -Per primary MD 3. Elevated inflammatory markers - has high D dimer; Lovenox re-started 4. Decreased PEEP Continue weaning efforts S/p trach Reported cuff leak per Rn/RT Discussed trach change with surgery Hold off for now... however noted loss of volumes on vent and high FiO2 requirements Off IV fluids Begin dc planning to subacute; will need to wean down O2 further prior to transfer Javier Nava MD Jul 15, 2020 10:14
[2020-07-15] MEDS: guaiFENesin w/Codeine 5ml Liq ud NG PRN (11:05)
[2020-07-15] MEDS: Vitamin D 1000 units Tab GT SCH (11:06)
[2020-07-15] MEDS: Lansoprazole 15mg cap GT SCH (11:07)
--- NOTE | 2020-07-15 11:09 | Infectious Diseases Prog Note ---
Assessment/Plan Assessment/Plan antibiotics : none A 1. covid 19 pneumonia s/p remdesivir s/p solumedrol 2. respiratory failure s/p tracheostomy 3. serratia pneumonia s/p rx P 1. continue off antibiotics 2. continue isolation Subjective ROS Limited/Unobtainable: Yes Allergies: Coded Allergies: No Known Allergies (Unverified , 05/28/20) Objective Last 24 Hour Vital Signs Date Time Temp Pulse Resp B/P (MAP) Pulse Ox O2 Delivery O2 Flow Rate FiO2 07/15/20 08:17 30 121/84 Mechanical Ventilator 50 07/15/20 07:25 102 24 50 07/15/20 07:00 108 25 125/79 (94) 98 07/15/20 06:21 109 28 07/15/20 06:15 111 33 127/81 (96) 94 07/15/20 06:00 24 126/78 Mechanical Ventilator 50 07/15/20 06:00 28 124/82 Mechanical Ventilator 50 07/15/20 06:00 115 33 142/80 (100) 94 07/15/20 05:09 102 17 50 07/15/20 05:00 102 18 111/69 (83) 99 07/15/20 05:00 28 127/81 Mechanical Ventilator 50 07/15/20 05:00 28 121/77 Mechanical Ventilator 50 07/15/20 04:35 26 120/75 Mechanical Ventilator 50 07/15/20 04:00 100.0 112 24 109/72 (84) 100 07/15/20 04:00 109 07/15/20 04:00 Mechanical Ventilator Mechanical Ventilator 07/15/20 04:00 24 117/77 Mechanical Ventilator 50 07/15/20 04:00 24 121/77 Endotracheal Tube 50 07/15/20 04:00 50 07/15/20 03:30 124 35 121/70 (87) 93 07/15/20 03:30 109 26 50 07/15/20 03:00 104 22 122/77 (92) 100 07/15/20 03:00 28 128/82 Mechanical Ventilator 50 07/15/20 03:00 24 117/77 Mechanical Ventilator 50 07/15/20 02:30 111 28 141/86 (104) 97 07/15/20 02:00 111 30 131/87 (102) 98 07/15/20 02:00 21 129/78 Mechanical Ventilator 50 07/15/20 02:00 22 128/78 Mechanical Ventilator 50 07/15/20 01:30 109 29 127/83 (98) 93 07/15/20 01:30 107 27 50 07/15/20 01:00 104 28 122/76 (91) 96 07/15/20 01:00 99.4 104 28 122/76 (91) 96 07/15/20 01:00 26 122/83 Mechanical Ventilator 50 07/15/20 01:00 27 127/83 Mechanical Ventilator 50 07/15/20 00:45 106 32 119/86 (97) 100 07/15/20 00:30 95 22 121/77 (92) 98 07/15/20 00:30 95 22 121/77 (92) 98 07/15/20 00:15 103 35 117/77 (90) 96 07/15/20 00:00 94 17 119/81 (94) 99 07/15/20 00:00 Mechanical Ventilator Mechanical Ventilator 07/15/20 00:00 50 07/15/20 00:00 23 122/78 Mechanical Ventilator 50 07/15/20 00:00 24 122/76 Mechanical Ventilator 50 07/15/20 00:00 94 17 119/81 (94) 99 07/15/20 00:00 110 07/14/20 23:30 98 25 116/70 (85) 98 07/14/20 23:04 108 29 50 07/14/20 23:00 98 25 115/78 (90) 100 07/14/20 23:00 23 116/75 Mechanical Ventilator 50 07/14/20 23:00 23 110/76 Mechanical Ventilator 50 07/14/20 22:30 99 18 112/79 (90) 99 07/14/20 22:00 107 28 109/71 (84) 98 07/14/20 22:00 23 121/76 Mechanical Ventilator 50 07/14/20 22:00 23 121/76 Mechanical Ventilator 50 07/14/20 21:30 103 21 120/75 (90) 99 07/14/20 21:00 105 25 118/74 (89) 98 07/14/20 21:00 22 110/68 Mechanical Ventilator 50 07/14/20 21:00 26 114/77 Mechanical Ventilator 50 07/14/20 21:00 105 25 118/74 (89) 98 07/14/20 20:39 108 37 50 2/21/21 20:30 107 28 114/91 (99) 100 07/14/20 20:00 94 07/14/20 20:00 98 18 94/63 (73) 100 07/14/20 20:00 98 18 94/63 (73) 100 07/14/20 20:00 99.0 07/14/20 20:00 19 104/68 Mechanical Ventilator 50 07/14/20 20:00 19 104/68 Mechanical Ventilator 50 07/14/20 20:00 Mechanical Ventilator Mechanical Ventilator 07/14/20 19:30 104 22 80 07/14/20 19:01 16 92/58 Mechanical Ventilator 50 07/14/20 19:01 16 92/58 Mechanical Ventilator 50 07/14/20 19:00 16 92/58 Mechanical Ventilator 50 07/14/20 19:00 103 16 102/74 (83) 96 07/14/20 18:45 95 15 92/58 (69) 100 07/14/20 18:30 96 15 92/58 (69) 100 07/14/20 18:15 99 15 91/62 (72) 99 07/14/20 18:00 16 101/62 Mechanical Ventilator 50 07/14/20 18:00 16 101/62 Mechanical Ventilator 50 07/14/20 18:00 99 15 101/62 (75) 98 07/14/20 17:49 97 15 93/59 (70) 99 07/14/20 17:45 97 15 89/55 (66) 99 07/14/20 17:30 50 07/14/20 17:30 99 15 91/56 (68) 99 07/14/20 17:29 50 07/14/20 17:15 101 15 95/49 (64) 100 07/14/20 17:00 15 95/49 Mechanical Ventilator 70 07/14/20 17:00 15 95/49 Mechanical Ventilator 70 07/14/20 17:00 102 16 101/64 (76) 100 07/14/20 16:45 104 15 102/61 (75) 100 07/14/20 16:45 70 07/14/20 16:30 98.7 106 19 103/73 (83) 100 07/14/20 16:15 106 15 98/59 (72) 100 07/14/20 16:00 Mechanical Ventilator Mechanical Ventilator 07/14/20 16:00 111 07/14/20 16:00 15 98/59 Mechanical Ventilator 80 07/14/20 16:00 15 98/59 Mechanical Ventilator 80 07/14/20 16:00 110 16 95/60 (72) 100 07/14/20 16:00 80 07/14/20 15:45 113 15 100/55 (70) 100 07/14/20 15:30 115 16 101/56 (71) 100 07/14/20 15:15 123 19 105/56 (72) 100 07/14/20 15:15 106 16 80 07/14/20 15:15 80 07/14/20 15:00 121 17 108/71 (83) 100 07/14/20 15:00 16 105/56 Mechanical Ventilator 90 07/14/20 15:00 16 105/56 Mechanical Ventilator 90 07/14/20 14:45 126 21 106/71 (83) 100 07/14/20 14:30 132 26 114/65 (81) 99 07/14/20 14:26 36 103/82 Mechanical Ventilator 90 07/14/20 14:20 90 07/14/20 14:20 90 07/14/20 14:15 123 23 103/82 (89) 100 07/14/20 14:00 119 25 90/57 (68) 99 07/14/20 14:00 24 90/57 Mechanical Ventilator 100 07/14/20 14:00 24 90/57 Mechanical Ventilator 100 07/14/20 13:46 123 19 91/55 (67) 75 07/14/20 13:00 30 110/58 Mechanical Ventilator 100 07/14/20 13:00 30 110/58 Mechanical Ventilator 100 07/14/20 13:00 124 25 110/58 (75) 93 07/14/20 12:30 119 32 119/73 (88) 97 07/14/20 12:22 30 117/76 Mechanical Ventilator 50 07/14/20 12:15 100 07/14/20 12:15 100 07/14/20 12:00 Mechanical Ventilator Mechanical Ventilator 07/14/20 12:00 98.5 110 25 116/76 (89) 100 07/14/20 12:00 30 119/73 Mechanical Ventilator 50 07/14/20 11:39 115 29 50 07/14/20 11:30 112 28 122/68 (86) 100 07/14/20 11:23 109 Height (Feet): 5 Height (Inches): 6.00 Weight (Pounds): 239 HEENT: status post trach Respiratory/Chest: lungs clear Cardiovascular: normal rate, regular rhythm, no gallop/murmur Abdomen: soft, non tender Extremities: no edema Laboratory Tests Test 07/14/20 17:10 Arterial Blood pH 7.422 (7.350-7.450) Arterial Blood Partial Pressure CO2 69.8 mmHg (35.0-45.0) *H Arterial Blood Partial Pressure O2 151.4 mmHg (75.0-100.0) H Arterial Blood HCO3 44.5 mmol/L (22.0-26.0) *H Arterial Blood Oxygen Saturation 98.9 % (95-100) Arterial Blood Base Excess 16.9 (-2-2) *H Jeremiah Test Positive Current Medications Medications (Trade) Dose Ordered Sig/Zelda Route PRN Reason Start Time Stop Time Status Last Admin Dose Admin Acetaminophen (Tylenol) 650 mg Q4H PRN NG Temp >100.5 06/29/20 10:15 07/29/20 10:14 07/08/20 18:26 Acetaminophen (Tylenol) 650 mg Q6H PRN NG Mild Pain (Pain Scale 1-3) 06/29/20 10:15 07/29/20 10:14 Chlorhexidine Gluconate (Inna-Hex 2%) 1 applic DAILY@2000 TOPIC 05/30/20 20:00 08/28/20 19:59 07/14/20 21:00 Dextrose (Dextrose 50%) 25 ml Q30M PRN IV Hypoglycemia 06/05/20 10:45 09/03/20 10:44 Dextrose (Dextrose 50%) 50 ml Q30M PRN IV Hypoglycemia 06/05/20 10:45 09/03/20 10:44 Fentanyl Citrate 250 ml @ 0 mls/hr Q24H IV 07/13/20 14:00 07/15/20 13:59 07/15/20 04:35 Furosemide (Lasix) 40 mg DAILY IV 06/22/20 09:00 07/22/20 08:59 07/14/20 08:21 Guaifenesin/ Codeine Phosphate (Robitussin with codeine) 5 ml Q6H PRN NG For Cough 07/14/20 14:15 08/13/20 14:14 07/14/20 14:20 Lansoprazole (Prevacid) 30 mg DAILY GT 07/10/20 09:00 08/09/20 08:59 07/14/20 08:23 Midazolam HCl 200 ml @ 0 mls/hr Q24H PRN IV To Patient Comfort 07/10/20 12:00 07/17/20 11:59 07/15/20 08:17 Midodrine (Pro-Amatine) 10 mg Q8HR GT 06/30/20 14:00 09/12/20 13:59 07/15/20 05:46 Norepinephrine Bitartrate 250 ml @ 0 mls/hr Q24H PRN IV For hypotension 07/14/20 18:45 07/17/20 18:40 Vitamin D (Vitamin D) 5,000 unit DAILY GT 06/28/20 09:00 07/28/20 08:59 07/14/20 08:22 Fili Mcelroy MD Jul 15, 2020 11:09
--- NOTE | 2020-07-15 11:26 | Surgery Progress Note ---
Surgery Progress Note Subjective Procedure Performed right femoral central venous line insertion Additional Comments No acute events. Much more comfortable. Weaning well. Less vent settings thus far. No more coughing great nursing care. Continue weaning placement soon Objective Last 24 Hour Vital Signs Date Time Temp Pulse Resp B/P (MAP) Pulse Ox O2 Delivery O2 Flow Rate FiO2 07/15/20 08:17 30 121/84 Mechanical Ventilator 50 07/15/20 07:25 102 24 50 07/15/20 07:00 108 25 125/79 (94) 98 07/15/20 06:21 109 28 07/15/20 06:15 111 33 127/81 (96) 94 07/15/20 06:00 24 126/78 Mechanical Ventilator 50 07/15/20 06:00 28 124/82 Mechanical Ventilator 50 07/15/20 06:00 115 33 142/80 (100) 94 07/15/20 05:09 102 17 50 07/15/20 05:00 102 18 111/69 (83) 99 07/15/20 05:00 28 127/81 Mechanical Ventilator 50 07/15/20 05:00 28 121/77 Mechanical Ventilator 50 07/15/20 04:35 26 120/75 Mechanical Ventilator 50 07/15/20 04:00 100.0 112 24 109/72 (84) 100 07/15/20 04:00 109 07/15/20 04:00 Mechanical Ventilator Mechanical Ventilator 07/15/20 04:00 24 117/77 Mechanical Ventilator 50 07/15/20 04:00 24 121/77 Endotracheal Tube 50 07/15/20 04:00 50 07/15/20 03:30 124 35 121/70 (87) 93 07/15/20 03:30 109 26 50 07/15/20 03:00 104 22 122/77 (92) 100 07/15/20 03:00 28 128/82 Mechanical Ventilator 50 07/15/20 03:00 24 117/77 Mechanical Ventilator 50 07/15/20 02:30 111 28 141/86 (104) 97 07/15/20 02:00 111 30 131/87 (102) 98 07/15/20 02:00 21 129/78 Mechanical Ventilator 50 07/15/20 02:00 22 128/78 Mechanical Ventilator 50 07/15/20 01:30 109 29 127/83 (98) 93 07/15/20 01:30 107 27 50 07/15/20 01:00 104 28 122/76 (91) 96 07/15/20 01:00 99.4 104 28 122/76 (91) 96 07/15/20 01:00 26 122/83 Mechanical Ventilator 50 07/15/20 01:00 27 127/83 Mechanical Ventilator 50 07/15/20 00:45 106 32 119/86 (97) 100 07/15/20 00:30 95 22 121/77 (92) 98 07/15/20 00:30 95 22 121/77 (92) 98 07/15/20 00:15 103 35 117/77 (90) 96 07/15/20 00:00 94 17 119/81 (94) 99 07/15/20 00:00 Mechanical Ventilator Mechanical Ventilator 07/15/20 00:00 50 07/15/20 00:00 23 122/78 Mechanical Ventilator 50 07/15/20 00:00 24 122/76 Mechanical Ventilator 50 07/15/20 00:00 94 17 119/81 (94) 99 07/15/20 00:00 110 07/14/20 23:30 98 25 116/70 (85) 98 07/14/20 23:04 108 29 50 07/14/20 23:00 98 25 115/78 (90) 100 07/14/20 23:00 23 116/75 Mechanical Ventilator 50 07/14/20 23:00 23 110/76 Mechanical Ventilator 50 07/14/20 22:30 99 18 112/79 (90) 99 07/14/20 22:00 107 28 109/71 (84) 98 07/14/20 22:00 23 121/76 Mechanical Ventilator 50 07/14/20 22:00 23 121/76 Mechanical Ventilator 50 07/14/20 21:30 103 21 120/75 (90) 99 07/14/20 21:00 105 25 118/74 (89) 98 07/14/20 21:00 22 110/68 Mechanical Ventilator 50 07/14/20 21:00 26 114/77 Mechanical Ventilator 50 07/14/20 21:00 105 25 118/74 (89) 98 07/14/20 20:39 108 37 50 07/14/20 20:30 107 28 114/91 (99) 100 07/14/20 20:00 94 07/14/20 20:00 98 18 94/63 (73) 100 2/21/21 20:00 98 18 94/63 (73) 100 07/14/20 20:00 99.0 07/14/20 20:00 19 104/68 Mechanical Ventilator 50 07/14/20 20:00 19 104/68 Mechanical Ventilator 50 07/14/20 20:00 Mechanical Ventilator Mechanical Ventilator 07/14/20 19:30 104 22 80 07/14/20 19:01 16 92/58 Mechanical Ventilator 50 07/14/20 19:01 16 92/58 Mechanical Ventilator 50 07/14/20 19:00 16 92/58 Mechanical Ventilator 50 07/14/20 19:00 103 16 102/74 (83) 96 07/14/20 18:45 95 15 92/58 (69) 100 07/14/20 18:30 96 15 92/58 (69) 100 07/14/20 18:15 99 15 91/62 (72) 99 07/14/20 18:00 16 101/62 Mechanical Ventilator 50 07/14/20 18:00 16 101/62 Mechanical Ventilator 50 07/14/20 18:00 99 15 101/62 (75) 98 07/14/20 17:49 97 15 93/59 (70) 99 07/14/20 17:45 97 15 89/55 (66) 99 07/14/20 17:30 50 07/14/20 17:30 99 15 91/56 (68) 99 07/14/20 17:29 50 07/14/20 17:15 101 15 95/49 (64) 100 07/14/20 17:00 15 95/49 Mechanical Ventilator 70 07/14/20 17:00 15 95/49 Mechanical Ventilator 70 07/14/20 17:00 102 16 101/64 (76) 100 07/14/20 16:45 104 15 102/61 (75) 100 07/14/20 16:45 70 07/14/20 16:30 98.7 106 19 103/73 (83) 100 07/14/20 16:15 106 15 98/59 (72) 100 07/14/20 16:00 Mechanical Ventilator Mechanical Ventilator 07/14/20 16:00 111 07/14/20 16:00 15 98/59 Mechanical Ventilator 80 07/14/20 16:00 15 98/59 Mechanical Ventilator 80 07/14/20 16:00 110 16 95/60 (72) 100 07/14/20 16:00 80 07/14/20 15:45 113 15 100/55 (70) 100 07/14/20 15:30 115 16 101/56 (71) 100 07/14/20 15:15 123 19 105/56 (72) 100 07/14/20 15:15 106 16 80 07/14/20 15:15 80 07/14/20 15:00 121 17 108/71 (83) 100 07/14/20 15:00 16 105/56 Mechanical Ventilator 90 07/14/20 15:00 16 105/56 Mechanical Ventilator 90 07/14/20 14:45 126 21 106/71 (83) 100 07/14/20 14:30 132 26 114/65 (81) 99 07/14/20 14:26 36 103/82 Mechanical Ventilator 90 07/14/20 14:20 90 07/14/20 14:20 90 07/14/20 14:15 123 23 103/82 (89) 100 07/14/20 14:00 119 25 90/57 (68) 99 07/14/20 14:00 24 90/57 Mechanical Ventilator 100 07/14/20 14:00 24 90/57 Mechanical Ventilator 100 07/14/20 13:46 123 19 91/55 (67) 75 07/14/20 13:00 30 110/58 Mechanical Ventilator 100 07/14/20 13:00 30 110/58 Mechanical Ventilator 100 07/14/20 13:00 124 25 110/58 (75) 93 07/14/20 12:30 119 32 119/73 (88) 97 07/14/20 12:22 30 117/76 Mechanical Ventilator 50 07/14/20 12:15 100 07/14/20 12:15 100 07/14/20 12:00 Mechanical Ventilator Mechanical Ventilator 07/14/20 12:00 98.5 110 25 116/76 (89) 100 07/14/20 12:00 30 119/73 Mechanical Ventilator 50 07/14/20 11:39 115 29 50 07/14/20 11:30 112 28 122/68 (86) 100 I&O Intake and Output 07/14/20 07/15/20 18:59 06:59 Intake Total 1424.3267 ml 860 ml Output Total 1465 ml 215 ml Balance -40.6733 ml 645 ml Free Water 220 ml 30 ml IV Total 564.3267 ml 290 ml Tube Feeding 640 ml 540 ml Output Urine Total 1465 ml 215 ml Dressing: saturated Cardiovascular: RSR Respiratory: decreased breath sounds Abdomen: soft, non-tender, present bowel sounds Extremities: edema, no tenderness, no cyanosis Laboratory Tests Test 07/14/20 17:10 Arterial Blood pH 7.422 (7.350-7.450) Arterial Blood Partial Pressure CO2 69.8 mmHg (35.0-45.0) *H Arterial Blood Partial Pressure O2 151.4 mmHg (75.0-100.0) H Arterial Blood HCO3 44.5 mmol/L (22.0-26.0) *H Arterial Blood Oxygen Saturation 98.9 % (95-100) Arterial Blood Base Excess 16.9 (-2-2) *H Jeremiah Test Positive Plan Problems: (1) Respiratory distress (2) Respiratory failure Assessment & Plan: 50-year-old female Covid positive respiratory insufficiency intubated on ventilatory support declining. Leukocytosis increase oxygen requirement. Vent settings per pulmonology reviewed identified and agree. Unfortunately further surgical invention at this time is not appropriate as luis hicks is not a candidate and her current condition. Prognosis overall guarded. Tracheostomy can be considered in the future if recovering or shows improvement and requires unable to be weaned from ventilator support. Currently okay for nutritional optimization with NG tube. Will need significant monitoring for decubitus formation given patient's size and condition. Okay for air mattress tolerated. Turn every 2 hours as tolerated. Patient is otherwise critically ill and blood pressure labile. Will need to monitor closely.Bilateral infiltrates are again demonstrated. Stable tube and line positions. will need trach will need to wean vent first no cuff leak trach okay Improving weaning well DC planning placement (3) Hypoxia (4) Pneumonia due to COVID-19 virus Assessment & Plan: ++ as per pulm and ID (5) Diabetes mellitus out of control Assessment & Plan: DAILY ESTIMATED NEEDS: Needs based on Critical care, obesity 11-14kcal/kg actual body wt (140kg) kcals/kg 1414-3169 total kcals 1.5-2.0g prot/kg IBW (64.5kg) g protein/kg 96-129 g total protein 25-30ml/kg abw (83kg) mL/kg 6205-1077 total fluid mLs NUTRITION DIAGNOSIS: Swallowing difficulty R/T respiratory failure as evidenced by pt orally intubated and sedated, on OGT feeds. CURRENT TF: Vital 1.2 goal of 60ml/hr ENTERAL NUTRITION RECOMMENDATIONS: Vital AF 1.2 @ 60ml/hr x 24 hrs to provide 1440ml, 1728kcal, 108g prot, 1168ml free water * Maintain current critical care and carb controlled TF formula of Vital AF * TF @ goal meeds 100% est kcal/prot needs * HOB over 30 degrees/ water flush per MD TF may be lowered to 55ml/hr for improved BG control while maintaining Kcal and pro needs. ADDITIONAL RECOMMENDATIONS: * Calibrated bedscale wt * Monitor Propofol rate, need for TF adjustment-> now off * Monitor BGs closely : now improved, on novolog q 6rs + NISS * Monitor lytes- K elevated, monitor need for TF change * Rec bowel regimen- now w/ rectal tube . Az Devine Jul 15, 2020 11:25
--- NOTE | 2020-07-15 13:01 | NUR ---
ENTERTAINMENT MANAGERCONDITIONING COACH SI: RESP FAILURE ETT/VENT SUPPORT, DYSPNEA,COVID + T. 100.0 HR 112 RR 35 B/P 120/75 AC 15 TV 600 FIO2 50% PEEP 5 CO2 41 WBC 11.0 CXR=Enlarged heart with interstitial prominence with upper and lower lobe opacities with improved appearance of the lungs from prior exam. IS: FENTANYL GTT VERSED GTT LASIX IV ICU STATUS
[2020-07-15] MEDS ORDERED: NS 275ml ONE (13:55)
--- NOTE | 2020-07-15 14:05 | Cardiac Electrophysiology PN ---
Subjective Subjective [id number] Objective Last 24 Hour Vital Signs Date Time Temp Pulse Resp B/P (MAP) Pulse Ox O2 Delivery O2 Flow Rate FiO2 07/15/20 10:59 106 30 50 07/15/20 08:17 30 121/84 Mechanical Ventilator 50 07/15/20 07:25 102 24 50 07/15/20 07:00 108 25 125/79 (94) 98 07/15/20 06:21 109 28 07/15/20 06:15 111 33 127/81 (96) 94 07/15/20 06:00 24 126/78 Mechanical Ventilator 50 07/15/20 06:00 28 124/82 Mechanical Ventilator 50 07/15/20 06:00 115 33 142/80 (100) 94 07/15/20 05:09 102 17 50 07/15/20 05:00 102 18 111/69 (83) 99 07/15/20 05:00 28 127/81 Mechanical Ventilator 50 07/15/20 05:00 28 121/77 Mechanical Ventilator 50 07/15/20 04:35 26 120/75 Mechanical Ventilator 50 07/15/20 04:00 100.0 112 24 109/72 (84) 100 07/15/20 04:00 109 07/15/20 04:00 Mechanical Ventilator Mechanical Ventilator 07/15/20 04:00 24 117/77 Mechanical Ventilator 50 07/15/20 04:00 24 121/77 Endotracheal Tube 50 07/15/20 04:00 50 07/15/20 03:30 124 35 121/70 (87) 93 07/15/20 03:30 109 26 50 07/15/20 03:00 104 22 122/77 (92) 100 07/15/20 03:00 28 128/82 Mechanical Ventilator 50 07/15/20 03:00 24 117/77 Mechanical Ventilator 50 07/15/20 02:30 111 28 141/86 (104) 97 07/15/20 02:00 111 30 131/87 (102) 98 07/15/20 02:00 21 129/78 Mechanical Ventilator 50 07/15/20 02:00 22 128/78 Mechanical Ventilator 50 07/15/20 01:30 109 29 127/83 (98) 93 07/15/20 01:30 107 27 50 07/15/20 01:00 104 28 122/76 (91) 96 07/15/20 01:00 99.4 104 28 122/76 (91) 96 07/15/20 01:00 26 122/83 Mechanical Ventilator 50 07/15/20 01:00 27 127/83 Mechanical Ventilator 50 07/15/20 00:45 106 32 119/86 (97) 100 07/15/20 00:30 95 22 121/77 (92) 98 07/15/20 00:30 95 22 121/77 (92) 98 07/15/20 00:15 103 35 117/77 (90) 96 07/15/20 00:00 94 17 119/81 (94) 99 07/15/20 00:00 Mechanical Ventilator Mechanical Ventilator 07/15/20 00:00 50 07/15/20 00:00 23 122/78 Mechanical Ventilator 50 07/15/20 00:00 24 122/76 Mechanical Ventilator 50 07/15/20 00:00 94 17 119/81 (94) 99 07/15/20 00:00 110 07/14/20 23:30 98 25 116/70 (85) 98 07/14/20 23:04 108 29 50 07/14/20 23:00 98 25 115/78 (90) 100 07/14/20 23:00 23 116/75 Mechanical Ventilator 50 07/14/20 23:00 23 110/76 Mechanical Ventilator 50 07/14/20 22:30 99 18 112/79 (90) 99 07/14/20 22:00 107 28 109/71 (84) 98 07/14/20 22:00 23 121/76 Mechanical Ventilator 50 07/14/20 22:00 23 121/76 Mechanical Ventilator 50 07/14/20 21:30 103 21 120/75 (90) 99 07/14/20 21:00 105 25 118/74 (89) 98 07/14/20 21:00 22 110/68 Mechanical Ventilator 50 07/14/20 21:00 26 114/77 Mechanical Ventilator 50 07/14/20 21:00 105 25 118/74 (89) 98 07/14/20 20:39 108 37 50 07/14/20 20:30 107 28 114/91 (99) 100 07/14/20 20:00 94 07/14/20 20:00 98 18 94/63 (73) 100 07/14/20 20:00 98 18 94/63 (73) 100 07/14/20 20:00 99.0 07/14/20 20:00 19 104/68 Mechanical Ventilator 50 07/14/20 20:00 19 104/68 Mechanical Ventilator 50 07/14/20 20:00 Mechanical Ventilator Mechanical Ventilator 07/14/20 19:30 104 22 80 07/14/20 19:01 16 92/58 Mechanical Ventilator 50 07/14/20 19:01 16 92/58 Mechanical Ventilator 50 07/14/20 19:00 16 92/58 Mechanical Ventilator 50 07/14/20 19:00 103 16 102/74 (83) 96 07/14/20 18:45 95 15 92/58 (69) 100 07/14/20 18:30 96 15 92/58 (69) 100 07/14/20 18:15 99 15 91/62 (72) 99 07/14/20 18:00 16 101/62 Mechanical Ventilator 50 07/14/20 18:00 16 101/62 Mechanical Ventilator 50 07/14/20 18:00 99 15 101/62 (75) 98 07/14/20 17:49 97 15 93/59 (70) 99 07/14/20 17:45 97 15 89/55 (66) 99 07/14/20 17:30 50 07/14/20 17:30 99 15 91/56 (68) 99 07/14/20 17:29 50 07/14/20 17:15 101 15 95/49 (64) 100 07/14/20 17:00 15 95/49 Mechanical Ventilator 70 07/14/20 17:00 15 95/49 Mechanical Ventilator 70 07/14/20 17:00 102 16 101/64 (76) 100 07/14/20 16:45 104 15 102/61 (75) 100 07/14/20 16:45 70 07/14/20 16:30 98.7 106 19 103/73 (83) 100 07/14/20 16:15 106 15 98/59 (72) 100 07/14/20 16:00 Mechanical Ventilator Mechanical Ventilator 07/14/20 16:00 111 07/14/20 16:00 15 98/59 Mechanical Ventilator 80 07/14/20 16:00 15 98/59 Mechanical Ventilator 80 07/14/20 16:00 110 16 95/60 (72) 100 07/14/20 16:00 80 07/14/20 15:45 113 15 100/55 (70) 100 07/14/20 15:30 115 16 101/56 (71) 100 07/14/20 15:15 123 19 105/56 (72) 100 07/14/20 15:15 106 16 80 07/14/20 15:15 80 07/14/20 15:00 121 17 108/71 (83) 100 07/14/20 15:00 16 105/56 Mechanical Ventilator 90 07/14/20 15:00 16 105/56 Mechanical Ventilator 90 07/14/20 14:45 126 21 106/71 (83) 100 07/14/20 14:30 132 26 114/65 (81) 99 07/14/20 14:26 36 103/82 Mechanical Ventilator 90 07/14/20 14:20 90 07/14/20 14:20 90 07/14/20 14:15 123 23 103/82 (89) 100 Intake and Output 07/14/20 07/15/20 19:00 07:00 Intake Total 1484.3267 ml 790 ml Output Total 1435 ml 245 ml Balance 49.3267 ml 545 ml Free Water 220 ml 30 ml IV Total 604.3267 ml 220 ml Tube Feeding 660 ml 540 ml Output Urine Total 1435 ml 245 ml Laboratory Tests Test 07/14/20 17:10 Arterial Blood pH 7.422 (7.350-7.450) Arterial Blood Partial Pressure CO2 69.8 mmHg (35.0-45.0) *H Arterial Blood Partial Pressure O2 151.4 mmHg (75.0-100.0) H Arterial Blood HCO3 44.5 mmol/L (22.0-26.0) *H Arterial Blood Oxygen Saturation 98.9 % (95-100) Arterial Blood Base Excess 16.9 (-2-2) *H Jeremiah Test Positive Hill Burger MD Jul 15, 2020 14:05
--- NOTE | 2020-07-15 15:43 | NUR ---
INSURANCE CLINICALS AND REVIEWS FAXED TO [facility] T: [phone] EXT 1315 F: [phone]
--- NOTE | 2020-07-15 19:30 | NUR ---
NURSE NOTES: Received pt in bed, obtunded, on vent via trach not showing any signs of distress aat present settings. Vital AF 1. 2 running at 60cc/hr via NGT on left nares. Fentanyl infusing at 100 mcg/hr and versed at 10mcg/hr via right femoral TLC. Lennon catheter in place draining yellow urine. VSS and pt is SR on the monitor. Addendum: 07/15/20 at 2308 by RICH MONACO RN RN Pt is not obtunded. Pt is sedated, EVELYN -2.
[2020-07-15] MEDS: Dyna-Hex 2% Top Sol 2oz TOPIC SCH (20:08)
--- NOTE | 2020-07-15 20:14 | Consultation ---
DATE OF CONSULTATION: 07/15/2020 CARDIOLOGY CONSULTATION CONSULTING PHYSICIAN: Hill Burger MD REFERRING PHYSICIAN: Tank Del Cid DO REASON FOR CONSULTATION: Tachycardia and shortness of breath. HISTORY OF PRESENT ILLNESS: Patient is a 50-year-old lady who presented to the emergency room on 05/28/2020 from home for hypoxia that started 3 to 4 days prior to the admission. Patient had recent COVID diagnosis. Over the course of last month, patient ended up getting tracheostomy for respiratory failure and currently is in intensive care unit for COVID-19 pneumonia, respiratory failure. Patient was intubated on 05/28/2020. Patient also has uncontrolled diabetes and morbid obesity. At the time of my evaluation, patient is on the ventilator via tracheostomy on FiO2 of 50 as well as on fentanyl and Versed drip. Patient also has right lower extremity DVT and is scheduled to undergo IVC filter placement. REVIEW OF SYSTEMS: Cannot be obtained. PAST MEDICAL HISTORY: As mentioned above. FAMILY HISTORY: Noncontributory. SOCIAL HISTORY: She has no history of drug use. PHYSICAL EXAMINATION: VITAL SIGNS: Show blood pressure of 121/84, pulse is 118, respirations 30. HEAD AND NECK: Shows status post tracheostomy. LUNGS: Coarse rhonchi. CARDIOVASCULAR: Shows regular S1 and S2 with no gallop. ABDOMEN: Soft. EXTREMITIES: Have 1+ pitting edema. LABORATORY AND DIAGNOSTIC DATA: Her labs show sodium of 140, potassium 3.7, BUN of 11, creatinine of 0.5, glucose of 140. Triglycerides 193. White count is 11, hemoglobin 9.5, hematocrit 31.6, and platelet count of 424. COVID-19 PCR from 06/28/2020 was negative, but on 05/28/2020 was positive. ASSESSMENT AND PLAN: 1. Respiratory failure due to COVID-19 pneumonia. Patient already is on tracheostomy and is on the ventilator 50% FiO2. We will get an echocardiogram to evaluate for ejection fraction and wall motion abnormality. 2. Right lower extremity DVT. Patient is to be followed up by Hematology. May need IVC filter placement. 3. Hypertension, on midodrine 10 mg 3 times daily. Patient is also on Lasix 40 IV daily, but we will await the result of the echocardiogram. Patient also has Levophed ordered in case if blood pressure drops. Thank you very much for allowing me to participate in the care of this patient. Please do not hesitate to contact me if you have any questions regarding my evaluation. Hill Burger M.D. DR: NISHANT JOB#: [id number] CC:
--- NOTE | 2020-07-15 22:00 | NUR ---
NURSE NOTES: Pt condition remains unchanged. VSS
[2020-07-16] VITALS (42 sets, daily range): BP systolic 90–123; BP diastolic 47–85
--- NOTE | 2020-07-16 | NUR ---
NURSE NOTES: Pt stable with stable VS. Pt repositoned for comfort. Accucheck is 131. Pt remains SR on the monitor.
--- NOTE | 2020-07-16 04:00 | NUR ---
NURSE NOTES: Pt stable with stable VS. Pt repositoned for comfort. Pt remains SR on the monitor.
[2020-07-16 04:26] LABS: HEMATOCRIT 29.9 % (37.0-47.0); HEMOGLOBIN 9.2 G/DL (12.0-16.0); LYMPHOCYTES % (AUTO) 26.6 % (20.0-45.0); MEAN CORPUSCULAR VOLUME 92 FL (80-99); MONOCYTES % (AUTO) 7.3 % (1.0-10.0); NEUTROPHILS % (AUTO) 58.1 % (45.0-75.0); PLATELET COUNT 394 K/UL (150-450); RED BLOOD COUNT 3.25 M/UL (4.20-5.40)
[2020-07-16] MEDS: fentaNYL 2500mcg/NS 250ml 250 ML IV SCH (04:30)
[2020-07-16] MEDS: Versed 100mg/NS 200ml 200 ML IV PRN ×2 (05:01→15:30)
[2020-07-16 05:07] LABS: ALANINE AMINOTRANSFERASE 15 U/L (12-78); ALBUMIN 2.2 G/DL (3.4-5.0); ALBUMIN/GLOBULIN RATIO 0.4 (1.0-2.7); ALKALINE PHOSPHATASE 77 U/L (46-116); ANION GAP 3 mmol/L (5-15); ASPARTATE AMINO TRANSFERASE 28 U/L (15-37); BLOOD UREA NITROGEN 19 mg/dL (7-18); CALCIUM 9.7 MG/DL (8.5-10.1); CHLORIDE 98 MMOL/L (98-107); CREATININE 0.5 MG/DL (0.55-1.30); PHOSPHORUS 3.4 MG/DL (2.5-4.9); POTASSIUM 3.5 MMOL/L (3.5-5.1); SODIUM 142 MMOL/L (136-145)
[2020-07-16 05:08] LABS: CARBON DIOXIDE 42 MMOL/L (21-32)
[2020-07-16] MEDS: Midodrine 10mg tab GT SCH ×3 (05:53→21:26)
--- NOTE | 2020-07-16 06:00 | NUR ---
NURSE NOTES: Pt stable. NO signs of any distress noted. Pt remains sedated EVELYN-2. VSS
--- NOTE | 2020-07-16 06:49 | Hematology/Onc Progress Note ---
Assessment/Plan Assessment/Plan # Deep vein thrombosis of the right calf --> given onoing anemia and low plts --> consider ivc if bleeding--once stable, needs it placed --> once stable, for radiology and ivc filter placement # Thrombocytopenia is due to infection/underlying covid19+++ --> ABX ceftriaxone -->zosyn-->off --> on steriods likely cause of initial wbc --> per pulm --> plt 107->156-->192-->205 --> smear reviewed # Leukocytosis due to Pneumonia due to COVID-19 virus --> per pulm rx -> sp remdesivir --> wbc 11.9-->11 # Anemia due to chronic disease --> hgb goal is >7 --> transfuse prn --> ferritin is >1000 --> hold off on iron --> 10-->9.8->9-->8-->8.2-->9.4-->8.1-->9.9-->9.6-->9.5 # Elevated ddimer due to covid19++ --> duplex legs is negative --> underlying covid rx # Hypoxia -> due to covid19 --> steriods as needed # Hypoxemia --> rx same as above # Respiratory failure --> on vent/trach --> per pulm # Diabetes mellitus out of control --> hgb a1c goal <7 # Poor prognosis # Dvt ppx ivc filter once more stable Appreciate consultation and bowen RN Subjective HEENT: Denies: no symptoms, eye pain, blurred vision, tearing, double vision, ear pain, ear discharge, nose pain, nose congestion, throat pain, throat swelling, mouth pain, mouth swelling, other Gastrointestinal/Abdominal: Denies: no symptoms, abdomen distended, abdominal pain, black stools, tarry stools, blood in stool, constipated, diarrhea, difficulty swallowing, nausea, poor appetite, poor fluid intake, rectal bleeding, vomiting, other Genitourinary: Denies: no symptoms, burning, discharge, frequency, flank pain, hematuria, incontinence, pain, urgency, other Neurologic/Psychiatric: Denies: no symptoms, anxiety, depressed, emotional problems, headache, numbness, paresthesia, pre-existing deficit, seizure, tingling, tremors, weakness, other Endocrine: Denies: no symptoms, excessive sweating, flushing, intolerance to cold, intolerance to heat, increased hunger, increased thirst, increased urine, unexplained weight gain, unexplained weight loss, other Allergies: Coded Allergies: No Known Allergies (Unverified , 05/28/20) Subjective 06/10 nv, on vent, with ogt, on fentanyl and versed, plt stable 06/11 nv, vent adjusted is on ogt, meds reviewed 06/12 nv, vent, meds noted, labs noted, no bleeding, hgb 10.4 06/13 nv, is on vent, meds reviewed, no bleeding, cbc reviewed 06/14 nv, on vent, tachy, labs reviewed, gross hematuria, febrile overnight, abx 06/17 nv, on vent, labs noted, no major changes, feeling better overnight 06/18 nv, meds reviewed, labs noted, no major events, hgb 8.6 06/19 nv, remains intubated, with fluids, labs reviewed, meds noted 06/20 nv, intubated remains on restraints, meds noted as well, as labs 06/21 nv, remains on vent, on restraints, meds reviewed, labs noted 06/22: covering Dr. Del Cid no acute events 06/23 sedated, on vent, nv, intubated, meds reviewed, versed 06/24 nv, on vent, no night sweats, no bleeding, remains in icu 06/25 nv, on vent, icu, meds noted, no bleeding, comfortable 06/26 nv, on versed, icu, weaning parameters, labs noted 06/27 nv, overnight fighting vent, as per pulm fentanyl on board 06/28 nv, on vent, labs reviewed, as per pulm, meds noted 06/30 nv, icu, labs pending, is on fentanyl, versed, no new changes 07/01 nv, icu, is on vent, labs pending, no new changes per rn 07/02 nv, icu is on vent, labs noted, hgb is stable 07/03 nv, icu, is on vent, potential trrach when stable, cbc reviewed 07/04 icu, nv, labs are noted, stable for trach today dw Rn Dl 07/05 icu, nv, on vent, with ng and picc in place, labs noted, s/p trach 07/07 icu, nv, on tv, no bleeding, labs noted, meds reviewed 07/08 icu, nv, on tv, labs reviewed, meds noted, no bleeding 07/09 icu, nv, meds noted, no bleeding, blood transfusion was completed 07/10 icu, nv, labs ntoed, no bleeding, hgb improved, hgb 7.8 07/11 icu, nv, labs reviewed, hgb is improved, for ivcf if stabilizes 07/12 icu, nv, labs reviewed, meds noted, no bleeding, remains on vent 07/13 icu, on vent, nv, no bleeding, labs reviewed, no major events, dw rn 07/14 icu, on vent, nv, tolerating ngt feeds, dw Rn, meds reviewed 07/15 icu, on vent, trach, tolerating ngt, meds noted, no bleeding 07/16 icu, vent, labs are noted, with trach, is stable, hgb 9.2 Objective Objective Current Medications Medications (Trade) Dose Ordered Sig/Zelda Route PRN Reason Start Time Stop Time Status Last Admin Dose Admin Acetaminophen (Tylenol) 650 mg Q4H PRN NG Temp >100.5 06/29/20 10:15 07/29/20 10:14 07/08/20 18:26 Acetaminophen (Tylenol) 650 mg Q6H PRN NG Mild Pain (Pain Scale 1-3) 06/29/20 10:15 07/29/20 10:14 Chlorhexidine Gluconate (Inna-Hex 2%) 1 applic DAILY@2000 TOPIC 05/30/20 20:00 08/28/20 19:59 07/15/20 20:08 Dextrose (Dextrose 50%) 25 ml Q30M PRN IV Hypoglycemia 06/05/20 10:45 09/03/20 10:44 Dextrose (Dextrose 50%) 50 ml Q30M PRN IV Hypoglycemia 06/05/20 10:45 09/03/20 10:44 Fentanyl Citrate 250 ml @ 10 mls/hr Q24H IV 07/16/20 04:00 07/18/20 03:59 07/16/20 04:30 Furosemide (Lasix) 40 mg DAILY IV 06/22/20 09:00 07/22/20 08:59 07/15/20 11:06 Guaifenesin/ Codeine Phosphate (Robitussin with codeine) 5 ml Q6H PRN NG For Cough 07/14/20 14:15 08/13/20 14:14 07/15/20 11:05 Lansoprazole (Prevacid) 30 mg DAILY GT 07/10/20 09:00 08/09/20 08:59 07/15/20 11:07 Midazolam HCl 200 ml @ 0 mls/hr Q24H PRN IV To Patient Comfort 07/10/20 12:00 07/17/20 11:59 07/16/20 05:01 Midodrine (Pro-Amatine) 10 mg Q8HR GT 06/30/20 14:00 09/12/20 13:59 07/16/20 05:53 Norepinephrine Bitartrate 250 ml @ 0 mls/hr Q24H PRN IV For hypotension 07/14/20 18:45 07/17/20 18:40 Vitamin D (Vitamin D) 5,000 unit DAILY GT 06/28/20 09:00 07/28/20 08:59 07/15/20 11:06 Last 24 Hour Vital Signs Date Time Temp Pulse Resp B/P (MAP) Pulse Ox O2 Delivery O2 Flow Rate FiO2 07/16/20 06:00 113 31 114/69 (84) 97 07/16/20 06:00 31 114/69 Mechanical Ventilator 50 07/16/20 06:00 31 114/69 Mechanical Ventilator 50 07/16/20 05:01 31 101/62 Mechanical Ventilator 50 07/16/20 05:01 28 101/64 Mechanical Ventilator 50 07/16/20 05:00 108 31 101/62 (75) 98 07/16/20 04:30 25 110/60 Mechanical Ventilator 50 07/16/20 04:00 101 07/16/20 04:00 99.5 114 26 105/65 (78) 99 07/16/20 04:00 50 07/16/20 04:00 26 105/65 Mechanical Ventilator 50 07/16/20 04:00 26 105/65 Mechanical Ventilator 50 07/16/20 04:00 Mechanical Ventilator Mechanical Ventilator 07/16/20 03:20 104 35 50 07/16/20 03:00 28 106/74 Mechanical Ventilator 50 07/16/20 03:00 28 106/74 Mechanical Ventilator 50 07/16/20 03:00 99 28 106/74 (85) 99 07/16/20 02:00 105 29 100/69 (79) 97 07/16/20 02:00 29 100/69 Mechanical Ventilator 50 07/16/20 02:00 29 100/69 Mechanical Ventilator 50 07/16/20 01:00 31 104/66 Mechanical Ventilator 50 07/16/20 01:00 31 104/66 Mechanical Ventilator 50 07/16/20 01:00 98 31 104/66 (79) 100 07/16/20 00:00 99.4 90 20 100/63 (75) 100 07/16/20 00:00 97 07/16/20 00:00 20 100/63 Mechanical Ventilator 50 07/16/20 00:00 20 100/63 Mechanical Ventilator 50 07/16/20 00:00 50 07/16/20 00:00 Mechanical Ventilator Mechanical Ventilator 07/15/20 23:20 87 22 50 07/15/20 23:00 86 23 97/60 (72) 100 07/15/20 23:00 23 97/60 Mechanical Ventilator 50 07/15/20 23:00 23 97/60 Mechanical Ventilator 50 07/15/20 22:00 21 104/67 Mechanical Ventilator 50 07/15/20 22:00 21 104/67 Mechanical Ventilator 50 07/15/20 22:00 94 21 104/67 (79) 100 07/15/20 21:00 97 20 94/63 (73) 100 07/15/20 21:00 20 94/63 Mechanical Ventilator 50 07/15/20 21:00 20 94/63 Mechanical Ventilator 50 07/15/20 20:00 100.1 106 23 107/69 (82) 100 07/15/20 20:00 103 07/15/20 20:00 50 07/15/20 20:00 23 107/69 Mechanical Ventilator 50 07/15/20 20:00 23 107/69 Mechanical Ventilator 50 07/15/20 20:00 Mechanical Ventilator Mechanical Ventilator 07/15/20 19:45 21 100/61 50 07/15/20 19:30 106 24 100/61 (74) 100 07/15/20 19:25 104 21 50 07/15/20 19:15 111 34 112/68 (83) 100 07/15/20 19:00 109 24 108/69 (82) 100 07/15/20 18:45 115 30 101/70 (80) 99 07/15/20 18:30 114 31 111/63 (79) 99 07/15/20 18:15 111 29 97/67 (77) 100 07/15/20 18:11 115 21 94/59 (71) 98 07/15/20 18:00 28 66/55 Mechanical Ventilator 50 07/15/20 18:00 28 66/55 Mechanical Ventilator 50 07/15/20 18:00 112 26 66/55 (59) 97 07/15/20 17:45 108 26 108/67 (81) 100 07/15/20 17:30 110 22 106/63 (77) 100 07/15/20 17:15 110 18 100/65 (77) 100 07/15/20 17:00 109 19 102/68 (79) 100 07/15/20 16:45 99.7 108 19 101/63 (76) 100 07/15/20 16:30 107 22 106/68 (81) 99 07/15/20 16:15 106 11 99/66 (77) 99 07/15/20 16:00 50 07/15/20 16:00 108 25 98/66 (77) 100 07/15/20 16:00 Mechanical Ventilator Mechanical Ventilator 07/15/20 15:45 108 20 101/62 (75) 100 07/15/20 15:30 109 7 96/61 (73) 100 07/15/20 15:15 109 11 102/59 (73) 100 07/15/20 15:08 105 22 50 07/15/20 15:00 107 20 100/64 (76) 07/15/20 14:45 107 13 102/64 (77) 07/15/20 14:30 105 13 99/60 (73) 07/15/20 14:15 104 16 94/57 (69) 07/15/20 14:00 106 21 97/58 (71) 07/15/20 13:45 103 21 99/61 (74) 07/15/20 13:30 105 23 108/74 (85) 07/15/20 13:15 111 24 108/71 (83) 97 07/15/20 13:00 112 26 116/68 (84) 96 07/15/20 12:45 117 28 114/66 (82) 94 07/15/20 12:30 108 23 100/61 (74) 96 07/15/20 12:15 108 24 109/65 (80) 96 07/15/20 12:00 100.3 107 24 117/66 (83) 93 07/15/20 12:00 Mechanical Ventilator Mechanical Ventilator 07/15/20 12:00 50 07/15/20 11:45 105 22 123/89 (100) 92 07/15/20 11:30 110 27 142/80 (100) 87 07/15/20 11:15 111 31 138/85 (102) 93 07/15/20 11:00 106 27 125/92 (103) 96 07/15/20 10:59 106 30 50 07/15/20 10:45 106 25 124/81 (95) 98 07/15/20 10:30 104 23 123/74 (90) 98 07/15/20 10:15 107 30 121/76 (91) 98 07/15/20 10:00 102 22 128/79 (95) 97 07/15/20 09:45 109 30 126/84 (98) 95 07/15/20 09:30 104 25 120/80 (93) 96 07/15/20 09:15 100 23 115/84 (94) 97 07/15/20 09:00 107 31 122/90 (101) 96 07/15/20 08:45 101 23 113/76 (88) 96 07/15/20 08:30 98 20 116/82 (93) 97 07/15/20 08:17 30 121/84 Mechanical Ventilator 50 07/15/20 08:15 106 27 121/85 (97) 96 07/15/20 08:00 50 07/15/20 08:00 Mechanical Ventilator Mechanical Ventilator 07/15/20 08:00 98.5 105 26 121/84 (96) 97 07/15/20 07:45 104 24 121/83 (96) 97 07/15/20 07:30 100 21 119/73 (88) 98 07/15/20 07:25 102 24 50 07/15/20 07:15 104 25 128/83 (98) 98 07/15/20 07:00 108 25 125/79 (94) 98 07/15/20 06:21 109 28 07/15/20 06:15 111 33 127/81 (96) 94 07/15/20 06:00 24 126/78 Mechanical Ventilator 50 07/15/20 06:00 28 124/82 Mechanical Ventilator 50 07/15/20 06:00 115 33 142/80 (100) 94 07/15/20 05:09 102 17 50 07/15/20 05:00 102 18 111/69 (83) 99 07/15/20 05:00 28 127/81 Mechanical Ventilator 50 07/15/20 05:00 28 121/77 Mechanical Ventilator 50 07/15/20 04:35 26 120/75 Mechanical Ventilator 50 07/15/20 04:00 100.0 112 24 109/72 (84) 100 07/15/20 04:00 109 07/15/20 04:00 Mechanical Ventilator Mechanical Ventilator 07/15/20 04:00 24 117/77 Mechanical Ventilator 50 07/15/20 04:00 24 121/77 Endotracheal Tube 50 07/15/20 04:00 50 07/15/20 03:30 124 35 121/70 (87) 93 07/15/20 03:30 109 26 50 07/15/20 03:00 104 22 122/77 (92) 100 07/15/20 03:00 28 128/82 Mechanical Ventilator 50 07/15/20 03:00 24 117/77 Mechanical Ventilator 50 07/15/20 02:30 111 28 141/86 (104) 97 07/15/20 02:00 111 30 131/87 (102) 98 07/15/20 02:00 21 129/78 Mechanical Ventilator 50 07/15/20 02:00 22 128/78 Mechanical Ventilator 50 07/15/20 01:30 109 29 127/83 (98) 93 07/15/20 01:30 107 27 50 07/15/20 01:00 104 28 122/76 (91) 96 07/15/20 01:00 99.4 104 28 122/76 (91) 96 07/15/20 01:00 26 122/83 Mechanical Ventilator 50 07/15/20 01:00 27 127/83 Mechanical Ventilator 50 07/15/20 00:45 106 32 119/86 (97) 100 07/15/20 00:30 95 22 121/77 (92) 98 07/15/20 00:30 95 22 121/77 (92) 98 07/15/20 00:15 103 35 117/77 (90) 96 07/15/20 00:00 94 17 119/81 (94) 99 07/15/20 00:00 Mechanical Ventilator Mechanical Ventilator 07/15/20 00:00 50 07/15/20 00:00 23 122/78 Mechanical Ventilator 50 07/15/20 00:00 24 122/76 Mechanical Ventilator 50 07/15/20 00:00 94 17 119/81 (94) 99 07/15/20 00:00 110 07/14/20 23:30 98 25 116/70 (85) 98 07/14/20 23:04 108 29 50 07/14/20 23:00 98 25 115/78 (90) 100 07/14/20 23:00 23 116/75 Mechanical Ventilator 50 07/14/20 23:00 23 110/76 Mechanical Ventilator 50 07/14/20 22:30 99 18 112/79 (90) 99 07/14/20 22:00 107 28 109/71 (84) 98 07/14/20 22:00 23 121/76 Mechanical Ventilator 50 07/14/20 22:00 23 121/76 Mechanical Ventilator 50 07/14/20 21:30 103 21 120/75 (90) 99 07/14/20 21:00 105 25 118/74 (89) 98 07/14/20 21:00 22 110/68 Mechanical Ventilator 50 07/14/20 21:00 26 114/77 Mechanical Ventilator 50 07/14/20 21:00 105 25 118/74 (89) 98 07/14/20 20:39 108 37 50 07/14/20 20:30 107 28 114/91 (99) 100 07/14/20 20:00 94 07/14/20 20:00 98 18 94/63 (73) 100 07/14/20 20:00 98 18 94/63 (73) 100 07/14/20 20:00 99.0 07/14/20 20:00 19 104/68 Mechanical Ventilator 50 07/14/20 20:00 19 104/68 Mechanical Ventilator 50 07/14/20 20:00 Mechanical Ventilator Mechanical Ventilator 07/14/20 19:30 104 22 80 07/14/20 19:01 16 92/58 Mechanical Ventilator 50 07/14/20 19:01 16 92/58 Mechanical Ventilator 50 07/14/20 19:00 16 92/58 Mechanical Ventilator 50 07/14/20 19:00 103 16 102/74 (83) 96 07/14/20 18:45 95 15 92/58 (69) 100 07/14/20 18:30 96 15 92/58 (69) 100 07/14/20 18:15 99 15 91/62 (72) 99 07/14/20 18:00 16 101/62 Mechanical Ventilator 50 07/14/20 18:00 16 101/62 Mechanical Ventilator 50 07/14/20 18:00 99 15 101/62 (75) 98 07/14/20 17:49 97 15 93/59 (70) 99 07/14/20 17:45 97 15 89/55 (66) 99 07/14/20 17:30 50 07/14/20 17:30 99 15 91/56 (68) 99 07/14/20 17:29 50 07/14/20 17:15 101 15 95/49 (64) 100 07/14/20 17:00 15 95/49 Mechanical Ventilator 70 07/14/20 17:00 15 95/49 Mechanical Ventilator 70 07/14/20 17:00 102 16 101/64 (76) 100 07/14/20 16:45 104 15 102/61 (75) 100 07/14/20 16:45 70 07/14/20 16:30 98.7 106 19 103/73 (83) 100 07/14/20 16:15 106 15 98/59 (72) 100 07/14/20 16:00 Mechanical Ventilator Mechanical Ventilator 07/14/20 16:00 111 07/14/20 16:00 15 98/59 Mechanical Ventilator 80 07/14/20 16:00 15 98/59 Mechanical Ventilator 80 07/14/20 16:00 110 16 95/60 (72) 100 07/14/20 16:00 80 07/14/20 15:45 113 15 100/55 (70) 100 07/14/20 15:30 115 16 101/56 (71) 100 07/14/20 15:15 123 19 105/56 (72) 100 07/14/20 15:15 106 16 80 07/14/20 15:15 80 07/14/20 15:00 121 17 108/71 (83) 100 07/14/20 15:00 16 105/56 Mechanical Ventilator 90 07/14/20 15:00 16 105/56 Mechanical Ventilator 90 07/14/20 14:45 126 21 106/71 (83) 100 07/14/20 14:30 132 26 114/65 (81) 99 07/14/20 14:26 36 103/82 Mechanical Ventilator 90 07/14/20 14:20 90 07/14/20 14:20 90 07/14/20 14:15 123 23 103/82 (89) 100 07/14/20 14:00 119 25 90/57 (68) 99 07/14/20 14:00 24 90/57 Mechanical Ventilator 100 07/14/20 14:00 24 90/57 Mechanical Ventilator 100 07/14/20 13:46 123 19 91/55 (67) 75 07/14/20 13:00 30 110/58 Mechanical Ventilator 100 07/14/20 13:00 30 110/58 Mechanical Ventilator 100 07/14/20 13:00 124 25 110/58 (75) 93 07/14/20 12:30 119 32 119/73 (88) 97 07/14/20 12:22 30 117/76 Mechanical Ventilator 50 07/14/20 12:15 100 07/14/20 12:15 100 07/14/20 12:00 Mechanical Ventilator Mechanical Ventilator 07/14/20 12:00 98.5 110 25 116/76 (89) 100 07/14/20 12:00 30 119/73 Mechanical Ventilator 50 07/14/20 11:39 115 29 50 07/14/20 11:30 112 28 122/68 (86) 100 07/14/20 11:23 109 07/14/20 11:00 106 26 111/78 (89) 100 07/14/20 11:00 28 122/68 Mechanical Ventilator 50 07/14/20 11:00 28 122/68 Mechanical Ventilator 50 07/14/20 10:00 104 26 109/67 (81) 100 07/14/20 10:00 26 123/75 Mechanical Ventilator 50 07/14/20 10:00 26 123/75 Mechanical Ventilator 50 07/14/20 09:00 27 102/54 Mechanical Ventilator 50 07/14/20 09:00 27 102/54 Mechanical Ventilator 50 07/14/20 09:00 114 29 102/54 (70) 96 07/14/20 08:11 108 07/14/20 08:00 29 122/70 Mechanical Ventilator 50 07/14/20 08:00 29 122/70 Mechanical Ventilator 50 07/14/20 08:00 Mechanical Ventilator Mechanical Ventilator 07/14/20 08:00 50 07/14/20 08:00 98.3 112 29 127/73 (91) 96 07/14/20 07:09 111 28 50 07/14/20 07:00 109 27 118/73 (88) 96 07/14/20 07:00 27 118/73 Mechanical Ventilator 50 07/14/20 07:00 27 118/73 Mechanical Ventilator 50 Intake and Output 0 07/15/20 07/16/20 19:00 07:00 Intake Total 1299.99 ml 970 ml Output Total 1875 ml 375 ml Balance -575.01 ml 595 ml Free Water 190 ml IV Total 389.99 ml 310 ml Tube Feeding 720 ml 660 ml Output Urine Total 1875 ml 375 ml Labs Test 07/14/20 09:09 07/14/20 11:05 07/14/20 17:10 07/16/20 03:10 Arterial Blood pH 7.400 (7.350-7.450) 7.422 (7.350-7.450) Arterial Blood Partial Pressure CO2 65.9 mmHg (35.0-45.0) 69.8 mmHg (35.0-45.0) Arterial Blood Partial Pressure O2 56.3 mmHg (75.0-100.0) 151.4 mmHg (75.0-100.0) Arterial Blood HCO3 39.9 mmol/L (22.0-26.0) 44.5 mmol/L (22.0-26.0) Arterial Blood Oxygen Saturation 87.1 % (95-100) 98.9 % (95-100) Arterial Blood Base Excess 12.7 (-2-2) 16.9 (-2-2) Jeremiah Test Positive Positive White Blood Count 11.0 K/UL (4.8-10.8) 10.0 K/UL (4.8-10.8) Red Blood Count 3.42 M/UL (4.20-5.40) 3.25 M/UL (4.20-5.40) Hemoglobin 9.5 G/DL (12.0-16.0) 9.2 G/DL (12.0-16.0) Hematocrit 31.6 % (37.0-47.0) 29.9 % (37.0-47.0) Mean Corpuscular Volume 92 FL (80-99) 92 FL (80-99) Mean Corpuscular Hemoglobin 27.8 PG (27.0-31.0) 28.3 PG (27.0-31.0) Mean Corpuscular Hemoglobin Concent 30.1 G/DL (32.0-36.0) 30.8 G/DL (32.0-36.0) Red Cell Distribution Width 17.5 % (11.6-14.8) 17.0 % (11.6-14.8) Platelet Count 424 K/UL (150-450) 394 K/UL (150-450) Mean Platelet Volume 7.4 FL (6.5-10.1) 6.9 FL (6.5-10.1) Neutrophils (%) (Auto) 63.4 % (45.0-75.0) 58.1 % (45.0-75.0) Lymphocytes (%) (Auto) 20.1 % (20.0-45.0) 26.6 % (20.0-45.0) Monocytes (%) (Auto) 7.1 % (1.0-10.0) 7.3 % (1.0-10.0) Eosinophils (%) (Auto) 8.2 % (0.0-3.0) 7.0 % (0.0-3.0) Basophils (%) (Auto) 1.2 % (0.0-2.0) 1.0 % (0.0-2.0) Sodium Level 140 MMOL/L (136-145) 142 MMOL/L (136-145) Potassium Level 3.7 MMOL/L (3.5-5.1) 3.5 MMOL/L (3.5-5.1) Chloride Level 95 MMOL/L (98-107) 98 MMOL/L (98-107) Carbon Dioxide Level 41 MMOL/L (21-32) 42 MMOL/L (21-32) Anion Gap 5 mmol/L (5-15) 3 mmol/L (5-15) Blood Urea Nitrogen 11 mg/dL (7-18) 19 mg/dL (7-18) Creatinine 0.5 MG/DL (0.55-1.30) 0.5 MG/DL (0.55-1.30) Estimat Glomerular Filtration Rate > 60 mL/min (>60) > 60 mL/min (>60) Glucose Level 140 MG/DL (74-106) 129 MG/DL (74-106) Calcium Level 10.1 MG/DL (8.5-10.1) 9.7 MG/DL (8.5-10.1) Total Bilirubin 1.0 MG/DL (0.2-1.0) 1.0 MG/DL (0.2-1.0) Aspartate Amino Transf (AST/SGOT) 20 U/L (15-37) 28 U/L (15-37) Alanine Aminotransferase (ALT/SGPT) 12 U/L (12-78) 15 U/L (12-78) Alkaline Phosphatase 76 U/L (46-116) 77 U/L (46-116) Total Protein 8.2 G/DL (6.4-8.2) 8.0 G/DL (6.4-8.2) Albumin 2.1 G/DL (3.4-5.0) 2.2 G/DL (3.4-5.0) Globulin 6.1 g/dL 5.8 g/dL Albumin/Globulin Ratio 0.3 (1.0-2.7) 0.4 (1.0-2.7) Triglycerides Level 193 MG/DL (30-150) Phosphorus Level 3.4 MG/DL (2.5-4.9) Magnesium Level 1.6 MG/DL (1.8-2.4) Troponin I 0.004 ng/mL (0.000-0.056) C-Reactive Protein, Quantitative 30.0 mg/dL (0.00-0.90) Pro-B-Type Natriuretic Peptide 184 pg/mL (0-125) Height (Feet): 5 Height (Inches): 6.00 Weight (Pounds): 239 Objective GeNL: nv HEENT: ngt++ Pulm: vent/trach++ CV: rrr Abd: soft, nt, nd Ext: no cce Myron Condon MD Jul 16, 2020 06:49
--- NOTE | 2020-07-16 07:15 | NUR ---
NURSE HAND-OFF REPORT: Latest Vital Signs: Temperature 99.5 , Pulse 109 , B/P 112 /64 , Respiratory Rate 27 , O2 SAT 100 , Mechanical Ventilator, O2 Flow Rate . Vital Sign Comment: EKG Rhythm: Sinus Tachycardia Rhythm change?: Jesus TOLLIVER Notified?: Jesus EDWARDS MD Response: Latest Meyers Fall Score: 70 Fall Risk: High Risk Safety Measures: Call light Within Reach, Bed Alarm Zone 1, Side Rails Side Rails x2, Bed position Low and Locked. Fall Precautions: Yellow Socks Report given to RAKEL Jennings.
--- NOTE | 2020-07-16 07:30 | NUR ---
NURSE NOTES: Received pt from RAKEL Rueda. Pt VS stable at this time. Pt trached and sedated with RASS -2 at this time. Pupils PERRLA and sluggish. Sinus rhythm noted on the monitor technician. Pt tolerating ventilator setting of tidal volume 600, FiO2 50%, RR 15, and PEEP 5 without s/s of distress. Plan for weaning trial this am. Was told that pt does not tolerate weaning off sedation. Will attempt to wean sedation as tolerated. Lennon in place and draining light jordyn urine at this time. Right femoral TLC in place with dressing dry and intact. Fentanyl and versed on for sedation. Peripheral pulses equal and strong. pt withdraws all ext to pain. Mg low at 1.6 this AM. will follow up with Dr Tyler for coverage. Will continue to monitor.
[2020-07-16] MEDS: Vitamin D 1000 units Tab GT SCH (08:57)
[2020-07-16] MEDS: Lansoprazole 15mg cap GT SCH (08:57)
--- NOTE | 2020-07-16 10:02 | Nephrology Progress Note ---
Assessment/Plan Problem List: (1) DEVENDRA (acute kidney injury) (2) Morbid obesity (3) Diabetes mellitus out of control (4) Pneumonia due to COVID-19 virus (5) Respiratory failure Assessment Acute renal failure Obstructive uropathy, clogged Lennon Respiratory failure COVID-19 pneumonia Morbid obesity Plan July 16: Status quo. FiO2 45%. Discussed with RN. Continue to taper her mind altering medications and sedatives. Stable from renal standpoint of view. Abnormal electrolytes addressed. July 15: Full code. FiO2 50%. Intubated on ventilator. No labs drawn today. Continue per consultants. July 14: Status quo. FiO2 50%. Labs reviewed. Renal parameters stable. Continue per current treatment plan and consultants. Medication list reviewed. July 13: FiO2 60% unchanged. Labs reviewed. Renal parameters stable. Medication list reviewed. Continue per consultants. July 12: Full code. Labs reviewed. Normal electrolytes addressed. Continue per pulmonary. Medication list reviewed. July 11: Remains full code. On ventilator. FiO2 down to 65%. Renal parameters stable. Low magnesium addressed. Continue her current management. July 10: Full code. On ventilator. FiO2 70%. Hemoglobin mid sevens. Renal parameters stable. Continue per consultants. July 09: Labs reviewed. Renal parameters stable. FiO2 80% unchanged. Continue per pulmonary. July 08: Labs reviewed. Renal parameters and electrolytes stable. ABG suggestive of high PCO2. At this time patient is on FiO2 of 80%. Continue per pulmonary. Continue to monitor renal parameters. July 07: No CHEM panel drawn today. More potassium given. Continue to monitor renal parameters. Continue per consultants. Discussed with RAKEL Veras. July 06: Low potassium addressed. Albumin bolus for low BP given. Patient remains full code. Continue to monitor electrolytes and renal parameters. Continue per consultants. Hemoglobin low today, transfusion per litigation manager. July 05: Trach to vent. FiO2 80%. Renal parameters stable. PCO2 remains high at 44. Continue to monitor renal parameters. July 04: Patient now trach. Full code. Labs reviewed. Renal parameters stable. Low magnesium addressed. July 03: Intubated. Full code. Labs reviewed. Abnormal electrolytes addressed. Continue per consultants. Overall status unchanged. July 02: Remains intubated. Remains full code. Remains on FiO2 of 70%. Labs reviewed. Abnormal electrolytes addressed. Continue per pulmonary. July 01: Remains on 70% FiO2. Full code. Intubated on ventilator. Retaining CO2. Discussed with RN. Will do ABG today. Albumin bolus given. 1 dose of Diamox given. June 30: Status quo. Labs reviewed. Abnormal electrolytes addressed. Remains full code. Remains on ventilator. Magnesium sulfate 4 gram IVPB given. June 29: Full code. Intubated on ventilator. Labs reviewed. Stable from renal standpoint of view. Continue per consultants. June 28: Remains full code. Remains intubated on ventilator. Labs reviewed. Vitamin D supplement ordered. Continue to monitor renal parameters. Continue per consultants. June 27: Remains full code. Intubated on ventilator. Labs reviewed. Abnormal electrolyte addressed. Continue to monitor renal parameters and electrolytes. Continue per consultants. June 26: Labs reviewed. Remains full code. Remains intubated. Back on NGT feeding. Continue to monitor renal parameters. June 25: Labs reviewed. Renal parameters stable. Remains full code. Due to positional status patient could not be fed via NG tube. Starting TPN? Is being entertained. Continue per consultants. June 24: Labs reviewed. Renal parameters stable. Remains full code. Suzanne ins intubated on ventilator. Continue per consultants. June 23: Labs reviewed. Renal parameters stable. Discussed with RN. Abnormal electrolyte addressed. Remains full code. Remains on ventilator. Continue per consultants. June 22: Labs reviewed. Low potassium addressed. Discussed with RAKEL Moran. Patient full code. Remains on ventilator. Continue to monitor renal parameters. June 21. Labs reviewed. Abnormal electrolyte addressed. Full code. Remains on ventilator. Medication list reviewed. Continue per pulmonary management. DC IV fluid, resume Lasix daily, check chest x-ray. June 20: Labs reviewed. Abnormal electrolytes. Patient remains full code. Continue per consultants. Noted and addressed June 19: Labs reviewed. Abnormal electrolytes noted and addressed. Remains intubated on ventilator. Remains full code. June 18: Labs reviewed. Remains intubated on ventilator. Full code. Abnormal electrolyte addressed. Continue as is. June 17: Labs reviewed. Abnormal electrolytes addressed. Patient remains full code and intubated on ventilator. Continue per consultants. Renal parameters are within normal limits. June 16: Labs reviewed. Potassium chloride replaced. Remains full code. Remains intubated on ventilator. Continue per consultants. Continue to monitor renal parameters. June 15: Labs reviewed. Serum creatinine 1. Stable from renal standpoint to view. Continue per consultants. June 14: Labs reviewed. Full code. Serum creatinine of 3.5 down to 1.4. Low potassium addressed. Continue per current treatment plan. Continue to monitor renal parameters. Midodrine started. Albumin bolus given. Previously: DC Lasix drip Increase Protonix dose Monitor renal parameters, electrolytes Per orders Subjective ROS Limited/Unobtainable: Yes Objective Objective Last 24 Hour Vital Signs Date Time Temp Pulse Resp B/P (MAP) Pulse Ox O2 Delivery O2 Flow Rate FiO2 07/16/20 09:00 45 07/16/20 09:00 103 20 116/68 (84) 100 07/16/20 08:45 108 30 112/72 (85) 97 07/16/20 08:30 103 20 113/72 (86) 100 07/16/20 08:15 115 32 105/47 (66) 97 07/16/20 08:00 50 07/16/20 08:00 Mechanical Ventilator Mechanical Ventilator 07/16/20 08:00 100.0 103 22 116/65 (82) 99 07/16/20 07:00 27 112/64 Mechanical Ventilator 50 07/16/20 07:00 27 112/64 Mechanical Ventilator 50 07/16/20 07:00 109 27 112/64 (80) 100 07/16/20 06:30 109 27 07/16/20 06:00 113 31 114/69 (84) 97 07/16/20 06:00 31 114/69 Mechanical Ventilator 50 07/16/20 06:00 31 114/69 Mechanical Ventilator 50 07/16/20 05:01 31 101/62 Mechanical Ventilator 50 07/16/20 05:01 28 101/64 Mechanical Ventilator 50 07/16/20 05:00 108 31 101/62 (75) 98 07/16/20 04:30 25 110/60 Mechanical Ventilator 50 07/16/20 04:00 101 07/16/20 04:00 99.5 114 26 105/65 (78) 99 07/16/20 04:00 50 07/16/20 04:00 26 105/65 Mechanical Ventilator 50 07/16/20 04:00 26 105/65 Mechanical Ventilator 50 07/16/20 04:00 Mechanical Ventilator Mechanical Ventilator 07/16/20 03:20 104 35 50 07/16/20 03:00 28 106/74 Mechanical Ventilator 50 07/16/20 03:00 28 106/74 Mechanical Ventilator 50 07/16/20 03:00 99 28 106/74 (85) 99 07/16/20 02:00 105 29 100/69 (79) 97 07/16/20 02:00 29 100/69 Mechanical Ventilator 50 07/16/20 02:00 29 100/69 Mechanical Ventilator 50 07/16/20 01:00 31 104/66 Mechanical Ventilator 50 07/16/20 01:00 31 104/66 Mechanical Ventilator 50 07/16/20 01:00 98 31 104/66 (79) 100 07/16/20 00:00 99.4 90 20 100/63 (75) 100 07/16/20 00:00 97 07/16/20 00:00 20 100/63 Mechanical Ventilator 50 07/16/20 00:00 20 100/63 Mechanical Ventilator 50 07/16/20 00:00 50 07/16/20 00:00 Mechanical Ventilator Mechanical Ventilator 07/15/20 23:20 87 22 50 07/15/20 23:00 86 23 97/60 (72) 100 07/15/20 23:00 23 97/60 Mechanical Ventilator 50 07/15/20 23:00 23 97/60 Mechanical Ventilator 50 07/15/20 22:00 21 104/67 Mechanical Ventilator 50 07/15/20 22:00 21 104/67 Mechanical Ventilator 50 07/15/20 22:00 94 21 104/67 (79) 100 07/15/20 21:00 97 20 94/63 (73) 100 07/15/20 21:00 20 94/63 Mechanical Ventilator 50 07/15/20 21:00 20 94/63 Mechanical Ventilator 50 07/15/20 20:00 100.1 106 23 107/69 (82) 100 07/15/20 20:00 103 07/15/20 20:00 50 07/15/20 20:00 23 107/69 Mechanical Ventilator 50 07/15/20 20:00 23 107/69 Mechanical Ventilator 50 07/15/20 20:00 Mechanical Ventilator Mechanical Ventilator 07/15/20 19:45 21 100/61 50 07/15/20 19:30 106 24 100/61 (74) 100 07/15/20 19:25 104 21 50 07/15/20 19:15 111 34 112/68 (83) 100 07/15/20 19:00 109 24 108/69 (82) 100 07/15/20 18:45 115 30 101/70 (80) 99 07/15/20 18:30 114 31 111/63 (79) 99 07/15/20 18:15 111 29 97/67 (77) 100 07/15/20 18:11 115 21 94/59 (71) 98 07/15/20 18:00 28 66/55 Mechanical Ventilator 50 07/15/20 18:00 28 66/55 Mechanical Ventilator 50 07/15/20 18:00 112 26 66/55 (59) 97 07/15/20 17:45 108 26 108/67 (81) 100 07/15/20 17:30 110 22 106/63 (77) 100 07/15/20 17:15 110 18 100/65 (77) 100 07/15/20 17:00 109 19 102/68 (79) 100 07/15/20 16:45 99.7 108 19 101/63 (76) 100 07/15/20 16:30 107 22 106/68 (81) 99 07/15/20 16:15 106 11 99/66 (77) 99 07/15/20 16:00 50 07/15/20 16:00 108 25 98/66 (77) 100 07/15/20 16:00 Mechanical Ventilator Mechanical Ventilator 07/15/20 15:45 108 20 101/62 (75) 100 07/15/20 15:30 109 7 96/61 (73) 100 07/15/20 15:15 109 11 102/59 (73) 100 07/15/20 15:08 105 22 50 07/15/20 15:00 107 20 100/64 (76) 07/15/20 14:45 107 13 102/64 (77) 07/15/20 14:30 105 13 99/60 (73) 07/15/20 14:15 104 16 94/57 (69) 07/15/20 14:00 106 21 97/58 (71) 07/15/20 13:45 103 21 99/61 (74) 07/15/20 13:30 105 23 108/74 (85) 07/15/20 13:15 111 24 108/71 (83) 97 07/15/20 13:00 112 26 116/68 (84) 96 07/15/20 12:45 117 28 114/66 (82) 94 07/15/20 12:30 108 23 100/61 (74) 96 07/15/20 12:15 108 24 109/65 (80) 96 07/15/20 12:00 100.3 107 24 117/66 (83) 93 07/15/20 12:00 Mechanical Ventilator Mechanical Ventilator 07/15/20 12:00 50 07/15/20 11:45 105 22 123/89 (100) 92 07/15/20 11:30 110 27 142/80 (100) 87 07/15/20 11:15 111 31 138/85 (102) 93 07/15/20 11:00 106 27 125/92 (103) 96 07/15/20 10:59 106 30 50 07/15/20 10:45 106 25 124/81 (95) 98 07/15/20 10:30 104 23 123/74 (90) 98 07/15/20 10:15 107 30 121/76 (91) 98 07/15/20 10:00 102 22 128/79 (95) 97 Intake and Output 07/15/20 07/16/20 19:00 07:00 Intake Total 1299.99 ml 1060 ml Output Total 1875 ml 415 ml Balance -575.01 ml 645 ml Free Water 190 ml IV Total 389.99 ml 340 ml Tube Feeding 720 ml 720 ml Output Urine Total 1875 ml 415 ml Current Medications Medications (Trade) Dose Ordered Sig/Zelda Route PRN Reason Start Time Stop Time Status Last Admin Dose Admin Acetaminophen (Tylenol) 650 mg Q4H PRN NG Temp >100.5 06/29/20 10:15 07/29/20 10:14 07/08/20 18:26 Acetaminophen (Tylenol) 650 mg Q6H PRN NG Mild Pain (Pain Scale 1-3) 06/29/20 10:15 07/29/20 10:14 Chlorhexidine Gluconate (Inna-Hex 2%) 1 applic DAILY@1999 TOPIC 05/30/20 20:00 08/28/20 19:59 07/15/20 20:08 Dextrose (Dextrose 50%) 25 ml Q30M PRN IV Hypoglycemia 06/05/20 10:45 09/03/20 10:44 Dextrose (Dextrose 50%) 50 ml Q30M PRN IV Hypoglycemia 06/05/20 10:45 09/03/20 10:44 Fentanyl Citrate 250 ml @ 10 mls/hr Q24H IV 07/16/20 04:00 07/18/20 03:59 07/16/20 04:30 Furosemide (Lasix) 40 mg DAILY IV 06/22/20 09:00 07/22/20 08:59 07/16/20 08:58 Guaifenesin/ Codeine Phosphate (Robitussin with codeine) 5 ml Q6H PRN NG For Cough 07/14/20 14:15 08/13/20 14:14 07/15/20 11:05 Lansoprazole (Prevacid) 30 mg DAILY GT 07/10/20 09:00 08/09/20 08:59 07/16/20 08:57 Magnesium Sulfate 100 ml @ 100 mls/hr Q1H IVPB 07/16/20 09:00 07/16/20 10:59 07/16/20 08:57 Midazolam HCl 200 ml @ 0 mls/hr Q24H PRN IV To Patient Comfort 07/10/20 12:00 07/17/20 11:59 07/16/20 05:01 Midodrine (Pro-Amatine) 10 mg Q8HR GT 06/30/20 14:00 09/12/20 13:59 07/16/20 05:53 Norepinephrine Bitartrate 250 ml @ 0 mls/hr Q24H PRN IV For hypotension 07/14/20 18:45 07/17/20 18:40 Vitamin D (Vitamin D) 5,000 unit DAILY GT 06/28/20 09:00 07/28/20 08:59 07/16/20 08:57 Laboratory Tests 07/16/20 03:10: White Blood Count 10.0, Red Blood Count 3.25L, Hemoglobin 9.2L, Hematocrit 29.9L , Mean Corpuscular Volume 92, Mean Corpuscular Hemoglobin 28.3, Mean Corpuscular Hemoglobin Concent 30.8L, Red Cell Distribution Width 17.0H, Platelet Count 394, Mean Platelet Volume 6.9, Neutrophils (%) (Auto) 58.1, Lymphocytes (%) (Auto) 26.6, Monocytes (%) (Auto) 7.3, Eosinophils (%) (Auto) 7.0H, Basophils (%) (Auto) 1.0, Sodium Level 142, Potassium Level 3.5, Chloride Level 98, Carbon Dioxide Level 42*H, Anion Gap 3L, Blood Urea Nitrogen 19H, Creatinine 0.5L, Estimat Glomerular Filtration Rate > 60, Glucose Level 129H, Calcium Level 9.7, Phosphorus Level 3.4, Magnesium Level 1.6L, Total Bilirubin 1.0, Aspartate Amino Transf (AST/SGOT) 28, Alanine Aminotransferase (ALT/SGPT) 15, Alkaline Phosphatase 77, Troponin I 0.004, C-Reactive Protein, Quantitative 30.0H, Pro-B-Type Natriuretic Peptide 184H, Total Protein 8.0, Albumin 2.2L, Globulin 5.8, Albumin/Globulin Ratio 0.4L Height (Feet): 5 Height (Inches): 6.00 Weight (Pounds): 239 General Appearance: no apparent distress EENT: other - Trach to vent Cardiovascular: tachycardia Respiratory/Chest: decreased breath sounds Abdomen: distended Rigo Tyler MD Jul 16, 2020 10:02
--- NOTE | 2020-07-16 11:00 | NUR ---
NURSE NOTES: Attempted to wean sedation. Pt did not tolerate. HR increased. RR increased. Sedation resumed at original rate. Pt calm with no s/s of distress now.
--- NOTE | 2020-07-16 11:51 | Infectious Diseases Prog Note ---
Assessment/Plan Assessment/Plan antibiotics : none A 1. covid 19 pneumonia s/p remdesivir s/p solumedrol 2. respiratory failure s/p tracheostomy 3. serratia pneumonia s/p rx P 1. continue off antibiotics 2. continue isolation Subjective ROS Limited/Unobtainable: Yes Allergies: Coded Allergies: No Known Allergies (Unverified , 05/28/20) Objective Last 24 Hour Vital Signs Date Time Temp Pulse Resp B/P (MAP) Pulse Ox O2 Delivery O2 Flow Rate FiO2 07/16/20 11:00 40 111/71 Mechanical Ventilator 45 07/16/20 11:00 40 111/71 Mechanical Ventilator 45 07/16/20 10:45 109 26 111/70 (84) 100 07/16/20 10:30 110 27 122/70 (87) 97 07/16/20 10:15 109 29 115/71 (86) 99 07/16/20 10:00 101 28 115/74 (88) 100 07/16/20 10:00 38 115/71 Mechanical Ventilator 45 07/16/20 10:00 38 115/71 Mechanical Ventilator 45 07/16/20 09:45 107 26 108/75 (86) 96 07/16/20 09:30 110 28 113/79 (90) 97 07/16/20 09:15 109 27 106/72 (83) 98 07/16/20 09:00 45 07/16/20 09:00 24 106/72 Mechanical Ventilator 45 07/16/20 09:00 24 106/72 Mechanical Ventilator 45 07/16/20 09:00 103 20 116/68 (84) 100 07/16/20 09:00 103 20 116/68 (84) 100 07/16/20 08:45 108 30 112/72 (85) 97 07/16/20 08:30 103 20 113/72 (86) 100 07/16/20 08:15 115 32 105/47 (66) 97 07/16/20 08:00 50 07/16/20 08:00 Mechanical Ventilator Mechanical Ventilator 07/16/20 08:00 23 105/47 Mechanical Ventilator 45 07/16/20 08:00 23 105/47 Mechanical Ventilator 45 07/16/20 08:00 109 07/16/20 08:00 100.0 103 22 116/65 (82) 99 07/16/20 07:00 27 112/64 Mechanical Ventilator 50 07/16/20 07:00 27 112/64 Mechanical Ventilator 50 07/16/20 07:00 109 27 112/64 (80) 100 07/16/20 06:30 109 27 07/16/20 06:00 113 31 114/69 (84) 97 07/16/20 06:00 31 114/69 Mechanical Ventilator 50 07/16/20 06:00 31 114/69 Mechanical Ventilator 50 07/16/20 05:01 31 101/62 Mechanical Ventilator 50 07/16/20 05:01 28 101/64 Mechanical Ventilator 50 07/16/20 05:00 108 31 101/62 (75) 98 07/16/20 04:30 25 110/60 Mechanical Ventilator 50 07/16/20 04:00 101 07/16/20 04:00 99.5 114 26 105/65 (78) 99 07/16/20 04:00 50 07/16/20 04:00 26 105/65 Mechanical Ventilator 50 07/16/20 04:00 26 105/65 Mechanical Ventilator 50 07/16/20 04:00 Mechanical Ventilator Mechanical Ventilator 07/16/20 03:20 104 35 50 07/16/20 03:00 28 106/74 Mechanical Ventilator 50 07/16/20 03:00 28 106/74 Mechanical Ventilator 50 07/16/20 03:00 99 28 106/74 (85) 99 07/16/20 02:00 105 29 100/69 (79) 97 07/16/20 02:00 29 100/69 Mechanical Ventilator 50 07/16/20 02:00 29 100/69 Mechanical Ventilator 50 07/16/20 01:00 31 104/66 Mechanical Ventilator 50 07/16/20 01:00 31 104/66 Mechanical Ventilator 50 07/16/20 01:00 98 31 104/66 (79) 100 07/16/20 00:00 99.4 90 20 100/63 (75) 100 07/16/20 00:00 97 07/16/20 00:00 20 100/63 Mechanical Ventilator 50 07/16/20 00:00 20 100/63 Mechanical Ventilator 50 07/16/20 00:00 50 07/16/20 00:00 Mechanical Ventilator Mechanical Ventilator 07/15/20 23:20 87 22 50 07/15/20 23:00 86 23 97/60 (72) 100 07/15/20 23:00 23 97/60 Mechanical Ventilator 50 07/15/20 23:00 23 97/60 Mechanical Ventilator 50 07/15/20 22:00 21 104/67 Mechanical Ventilator 50 07/15/20 22:00 21 104/67 Mechanical Ventilator 50 07/15/20 22:00 94 21 104/67 (79) 100 07/15/20 21:00 97 20 94/63 (73) 100 07/15/20 21:00 20 94/63 Mechanical Ventilator 50 07/15/20 21:00 20 94/63 Mechanical Ventilator 50 07/15/20 20:00 100.1 106 23 107/69 (82) 100 07/15/20 20:00 103 07/15/20 20:00 50 07/15/20 20:00 23 107/69 Mechanical Ventilator 50 07/15/20 20:00 23 107/69 Mechanical Ventilator 50 07/15/20 20:00 Mechanical Ventilator Mechanical Ventilator 07/15/20 19:45 21 100/61 50 07/15/20 19:30 106 24 100/61 (74) 100 07/15/20 19:25 104 21 50 07/15/20 19:15 111 34 112/68 (83) 100 07/15/20 19:00 109 24 108/69 (82) 100 07/15/20 18:45 115 30 101/70 (80) 99 07/15/20 18:30 114 31 111/63 (79) 99 07/15/20 18:15 111 29 97/67 (77) 100 07/15/20 18:11 115 21 94/59 (71) 98 07/15/20 18:00 28 66/55 Mechanical Ventilator 50 07/15/20 18:00 28 66/55 Mechanical Ventilator 50 07/15/20 18:00 112 26 66/55 (59) 97 07/15/20 17:45 108 26 108/67 (81) 100 07/15/20 17:30 110 22 106/63 (77) 100 07/15/20 17:15 110 18 100/65 (77) 100 07/15/20 17:00 109 19 102/68 (79) 100 07/15/20 16:45 99.7 108 19 101/63 (76) 100 07/15/20 16:30 107 22 106/68 (81) 99 07/15/20 16:15 106 11 99/66 (77) 99 07/15/20 16:00 50 07/15/20 16:00 108 25 98/66 (77) 100 07/15/20 16:00 Mechanical Ventilator Mechanical Ventilator 07/15/20 15:45 108 20 101/62 (75) 100 07/15/20 15:30 109 7 96/61 (73) 100 07/15/20 15:15 109 11 102/59 (73) 100 07/15/20 15:08 105 22 50 07/15/20 15:00 107 20 100/64 (76) 07/15/20 14:45 107 13 102/64 (77) 07/15/20 14:30 105 13 99/60 (73) 07/15/20 14:15 104 16 94/57 (69) 07/15/20 14:00 106 21 97/58 (71) 07/15/20 13:45 103 21 99/61 (74) 07/15/20 13:30 105 23 108/74 (85) 07/15/20 13:15 111 24 108/71 (83) 97 07/15/20 13:00 112 26 116/68 (84) 96 07/15/20 12:45 117 28 114/66 (82) 94 07/15/20 12:30 108 23 100/61 (74) 96 07/15/20 12:15 108 24 109/65 (80) 96 07/15/20 12:00 100.3 107 24 117/66 (83) 93 07/15/20 12:00 Mechanical Ventilator Mechanical Ventilator 07/15/20 12:00 50 Height (Feet): 5 Height (Inches): 6.00 Weight (Pounds): 239 HEENT: status post trach Respiratory/Chest: lungs clear Cardiovascular: normal rate, regular rhythm, no gallop/murmur Abdomen: soft, non tender Extremities: no edema Laboratory Tests Test 07/16/20 03:10 White Blood Count 10.0 K/UL (4.8-10.8) Red Blood Count 3.25 M/UL (4.20-5.40) L Hemoglobin 9.2 G/DL (12.0-16.0) L Hematocrit 29.9 % (37.0-47.0) L Mean Corpuscular Volume 92 FL (80-99) Mean Corpuscular Hemoglobin 28.3 PG (27.0-31.0) Mean Corpuscular Hemoglobin Concent 30.8 G/DL (32.0-36.0) L Red Cell Distribution Width 17.0 % (11.6-14.8) H Platelet Count 394 K/UL (150-450) Mean Platelet Volume 6.9 FL (6.5-10.1) Neutrophils (%) (Auto) 58.1 % (45.0-75.0) Lymphocytes (%) (Auto) 26.6 % (20.0-45.0) Monocytes (%) (Auto) 7.3 % (1.0-10.0) Eosinophils (%) (Auto) 7.0 % (0.0-3.0) H Basophils (%) (Auto) 1.0 % (0.0-2.0) Sodium Level 142 MMOL/L (136-145) Potassium Level 3.5 MMOL/L (3.5-5.1) Chloride Level 98 MMOL/L (98-107) Carbon Dioxide Level 42 MMOL/L (21-32) *H Anion Gap 3 mmol/L (5-15) L Blood Urea Nitrogen 19 mg/dL (7-18) H Creatinine 0.5 MG/DL (0.55-1.30) L Estimat Glomerular Filtration Rate > 60 mL/min (>60) Glucose Level 129 MG/DL (74-106) H Calcium Level 9.7 MG/DL (8.5-10.1) Phosphorus Level 3.4 MG/DL (2.5-4.9) Magnesium Level 1.6 MG/DL (1.8-2.4) L Total Bilirubin 1.0 MG/DL (0.2-1.0) Aspartate Amino Transf (AST/SGOT) 28 U/L (15-37) Alanine Aminotransferase (ALT/SGPT) 15 U/L (12-78) Alkaline Phosphatase 77 U/L (46-116) Troponin I 0.004 ng/mL (0.000-0.056) C-Reactive Protein, Quantitative 30.0 mg/dL (0.00-0.90) H Pro-B-Type Natriuretic Peptide 184 pg/mL (0-125) H Total Protein 8.0 G/DL (6.4-8.2) Albumin 2.2 G/DL (3.4-5.0) L Globulin 5.8 g/dL Albumin/Globulin Ratio 0.4 (1.0-2.7) L Current Medications Medications (Trade) Dose Ordered Sig/Zelda Route PRN Reason Start Time Stop Time Status Last Admin Dose Admin Acetaminophen (Tylenol) 650 mg Q4H PRN NG Temp >100.5 06/29/20 10:15 07/29/20 10:14 07/08/20 18:26 Acetaminophen (Tylenol) 650 mg Q6H PRN NG Mild Pain (Pain Scale 1-3) 06/29/20 10:15 07/29/20 10:14 Chlorhexidine Gluconate (Inna-Hex 2%) 1 applic DAILY@2000 TOPIC 05/30/20 20:00 08/28/20 19:59 07/15/20 20:08 Dextrose (Dextrose 50%) 25 ml Q30M PRN IV Hypoglycemia 06/05/20 10:45 09/03/20 10:44 Dextrose (Dextrose 50%) 50 ml Q30M PRN IV Hypoglycemia 06/05/20 10:45 09/03/20 10:44 Fentanyl Citrate 250 ml @ 10 mls/hr Q24H IV 07/16/20 04:00 07/18/20 03:59 07/16/20 04:30 Furosemide (Lasix) 40 mg DAILY IV 06/22/20 09:00 07/22/20 08:59 07/16/20 08:58 Guaifenesin/ Codeine Phosphate (Robitussin with codeine) 5 ml Q6H PRN NG For Cough 07/14/20 14:15 08/13/20 14:14 07/15/20 11:05 Lansoprazole (Prevacid) 30 mg DAILY GT 07/10/20 09:00 08/09/20 08:59 07/16/20 08:57 Midazolam HCl 200 ml @ 0 mls/hr Q24H PRN IV To Patient Comfort 07/10/20 12:00 07/17/20 11:59 07/16/20 05:01 Midodrine (Pro-Amatine) 10 mg Q8HR GT 06/30/20 14:00 09/12/20 13:59 07/16/20 05:53 Norepinephrine Bitartrate 250 ml @ 0 mls/hr Q24H PRN IV For hypotension 07/14/20 18:45 07/17/20 18:40 Vitamin D (Vitamin D) 5,000 unit DAILY GT 06/28/20 09:00 07/28/20 08:59 07/16/20 08:57 Fili Mcelroy MD Jul 16, 2020 11:51
--- NOTE | 2020-07-16 12:00 | NUR ---
NURSE NOTES: Pt VS stable. No s/s of distress. RT attempted to turn FiO2 to 40%. pt SpO2 dropped. FiO2 increased back to 45%. pt suctioned. SpO2 improved.
--- NOTE | 2020-07-16 12:37 | Cardiac Electrophysiology PN ---
Assessment/Plan Assessment/Plan 1. Respiratory failure due to COVID-19 pneumonia. Patient already is on tracheostomy and is on the ventilator 50% FiO2. Echo EF 60% 2. Right lower extremity DVT. Patient is to be followed up by Hematology. May need IVC filter placement. 3. Hypotension, on midodrine 10 mg 3 times daily. Patient is also on Lasix 40 IV daily, but we will await the result of the echocardiogram. Patient also has Levophed ordered in case if blood pressure drops. 4. Dysphagia. Likely will need PEG DW RN Subjective Subjective In ICU on kendall Vent via Trach 45% Fio2 Peep 5 Objective Last 24 Hour Vital Signs Date Time Temp Pulse Resp B/P (MAP) Pulse Ox O2 Delivery O2 Flow Rate FiO2 07/16/20 12:00 Mechanical Ventilator Mechanical Ventilator 07/16/20 11:00 40 111/71 Mechanical Ventilator 45 07/16/20 11:00 40 111/71 Mechanical Ventilator 45 07/16/20 10:45 109 26 111/70 (84) 100 07/16/20 10:30 110 27 122/70 (87) 97 07/16/20 10:15 109 29 115/71 (86) 99 07/16/20 10:00 101 28 115/74 (88) 100 07/16/20 10:00 38 115/71 Mechanical Ventilator 45 07/16/20 10:00 38 115/71 Mechanical Ventilator 45 07/16/20 09:45 107 26 108/75 (86) 96 07/16/20 09:30 110 28 113/79 (90) 97 07/16/20 09:15 109 27 106/72 (83) 98 07/16/20 09:00 45 07/16/20 09:00 24 106/72 Mechanical Ventilator 45 07/16/20 09:00 24 106/72 Mechanical Ventilator 45 07/16/20 09:00 103 20 116/68 (84) 100 07/16/20 09:00 103 20 116/68 (84) 100 07/16/20 08:45 108 30 112/72 (85) 97 07/16/20 08:30 103 20 113/72 (86) 100 07/16/20 08:15 115 32 105/47 (66) 97 07/16/20 08:00 50 07/16/20 08:00 Mechanical Ventilator Mechanical Ventilator 07/16/20 08:00 23 105/47 Mechanical Ventilator 45 07/16/20 08:00 23 105/47 Mechanical Ventilator 45 07/16/20 08:00 109 07/16/20 08:00 100.0 103 22 116/65 (82) 99 07/16/20 07:00 27 112/64 Mechanical Ventilator 50 07/16/20 07:00 27 112/64 Mechanical Ventilator 50 07/16/20 07:00 109 27 112/64 (80) 100 07/16/20 06:30 109 27 07/16/20 06:00 113 31 114/69 (84) 97 07/16/20 06:00 31 114/69 Mechanical Ventilator 50 07/16/20 06:00 31 114/69 Mechanical Ventilator 50 07/16/20 05:01 31 101/62 Mechanical Ventilator 50 07/16/20 05:01 28 101/64 Mechanical Ventilator 50 07/16/20 05:00 108 31 101/62 (75) 98 07/16/20 04:30 25 110/60 Mechanical Ventilator 50 07/16/20 04:00 101 07/16/20 04:00 99.5 114 26 105/65 (78) 99 07/16/20 04:00 50 07/16/20 04:00 26 105/65 Mechanical Ventilator 50 07/16/20 04:00 26 105/65 Mechanical Ventilator 50 07/16/20 04:00 Mechanical Ventilator Mechanical Ventilator 07/16/20 03:20 104 35 50 07/16/20 03:00 28 106/74 Mechanical Ventilator 50 07/16/20 03:00 28 106/74 Mechanical Ventilator 50 07/16/20 03:00 99 28 106/74 (85) 99 07/16/20 02:00 105 29 100/69 (79) 97 07/16/20 02:00 29 100/69 Mechanical Ventilator 50 07/16/20 02:00 29 100/69 Mechanical Ventilator 50 07/16/20 01:00 31 104/66 Mechanical Ventilator 50 07/16/20 01:00 31 104/66 Mechanical Ventilator 50 07/16/20 01:00 98 31 104/66 (79) 100 07/16/20 00:00 99.4 90 20 100/63 (75) 100 07/16/20 00:00 97 07/16/20 00:00 20 100/63 Mechanical Ventilator 50 2/23/21 00:00 20 100/63 Mechanical Ventilator 50 07/16/20 00:00 50 07/16/20 00:00 Mechanical Ventilator Mechanical Ventilator 07/15/20 23:20 87 22 50 07/15/20 23:00 86 23 97/60 (72) 100 07/15/20 23:00 23 97/60 Mechanical Ventilator 50 07/15/20 23:00 23 97/60 Mechanical Ventilator 50 07/15/20 22:00 21 104/67 Mechanical Ventilator 50 07/15/20 22:00 21 104/67 Mechanical Ventilator 50 07/15/20 22:00 94 21 104/67 (79) 100 07/15/20 21:00 97 20 94/63 (73) 100 07/15/20 21:00 20 94/63 Mechanical Ventilator 50 07/15/20 21:00 20 94/63 Mechanical Ventilator 50 07/15/20 20:00 100.1 106 23 107/69 (82) 100 07/15/20 20:00 103 07/15/20 20:00 50 07/15/20 20:00 23 107/69 Mechanical Ventilator 50 07/15/20 20:00 23 107/69 Mechanical Ventilator 50 07/15/20 20:00 Mechanical Ventilator Mechanical Ventilator 07/15/20 19:45 21 100/61 50 07/15/20 19:30 106 24 100/61 (74) 100 07/15/20 19:25 104 21 50 07/15/20 19:15 111 34 112/68 (83) 100 07/15/20 19:00 109 24 108/69 (82) 100 07/15/20 18:45 115 30 101/70 (80) 99 07/15/20 18:30 114 31 111/63 (79) 99 07/15/20 18:15 111 29 97/67 (77) 100 07/15/20 18:11 115 21 94/59 (71) 98 07/15/20 18:00 28 66/55 Mechanical Ventilator 50 07/15/20 18:00 28 66/55 Mechanical Ventilator 50 07/15/20 18:00 112 26 66/55 (59) 97 07/15/20 17:45 108 26 108/67 (81) 100 07/15/20 17:30 110 22 106/63 (77) 100 07/15/20 17:15 110 18 100/65 (77) 100 07/15/20 17:00 109 19 102/68 (79) 100 07/15/20 16:45 99.7 108 19 101/63 (76) 100 07/15/20 16:30 107 22 106/68 (81) 99 07/15/20 16:15 106 11 99/66 (77) 99 07/15/20 16:00 50 07/15/20 16:00 108 25 98/66 (77) 100 07/15/20 16:00 Mechanical Ventilator Mechanical Ventilator 07/15/20 15:45 108 20 101/62 (75) 100 07/15/20 15:30 109 7 96/61 (73) 100 07/15/20 15:15 109 11 102/59 (73) 100 07/15/20 15:08 105 22 50 07/15/20 15:00 107 20 100/64 (76) 07/15/20 14:45 107 13 102/64 (77) 07/15/20 14:30 105 13 99/60 (73) 07/15/20 14:15 104 16 94/57 (69) 07/15/20 14:00 106 21 97/58 (71) 07/15/20 13:45 103 21 99/61 (74) 07/15/20 13:30 105 23 108/74 (85) 07/15/20 13:15 111 24 108/71 (83) 97 07/15/20 13:00 112 26 116/68 (84) 96 07/15/20 12:45 117 28 114/66 (82) 94 Intake and Output 07/15/20 07/16/20 19:00 07:00 Intake Total 1299.99 ml 1060 ml Output Total 1875 ml 415 ml Balance -575.01 ml 645 ml Free Water 190 ml IV Total 389.99 ml 340 ml Tube Feeding 720 ml 720 ml Output Urine Total 1875 ml 415 ml Laboratory Tests Test 07/16/20 03:10 White Blood Count 10.0 K/UL (4.8-10.8) Red Blood Count 3.25 M/UL (4.20-5.40) L Hemoglobin 9.2 G/DL (12.0-16.0) L Hematocrit 29.9 % (37.0-47.0) L Mean Corpuscular Volume 92 FL (80-99) Mean Corpuscular Hemoglobin 28.3 PG (27.0-31.0) Mean Corpuscular Hemoglobin Concent 30.8 G/DL (32.0-36.0) L Red Cell Distribution Width 17.0 % (11.6-14.8) H Platelet Count 394 K/UL (150-450) Mean Platelet Volume 6.9 FL (6.5-10.1) Neutrophils (%) (Auto) 58.1 % (45.0-75.0) Lymphocytes (%) (Auto) 26.6 % (20.0-45.0) Monocytes (%) (Auto) 7.3 % (1.0-10.0) Eosinophils (%) (Auto) 7.0 % (0.0-3.0) H Basophils (%) (Auto) 1.0 % (0.0-2.0) Sodium Level 142 MMOL/L (136-145) Potassium Level 3.5 MMOL/L (3.5-5.1) Chloride Level 98 MMOL/L (98-107) Carbon Dioxide Level 42 MMOL/L (21-32) *H Anion Gap 3 mmol/L (5-15) L Blood Urea Nitrogen 19 mg/dL (7-18) H Creatinine 0.5 MG/DL (0.55-1.30) L Estimat Glomerular Filtration Rate > 60 mL/min (>60) Glucose Level 129 MG/DL (74-106) H Calcium Level 9.7 MG/DL (8.5-10.1) Phosphorus Level 3.4 MG/DL (2.5-4.9) Magnesium Level 1.6 MG/DL (1.8-2.4) L Total Bilirubin 1.0 MG/DL (0.2-1.0) Aspartate Amino Transf (AST/SGOT) 28 U/L (15-37) Alanine Aminotransferase (ALT/SGPT) 15 U/L (12-78) Alkaline Phosphatase 77 U/L (46-116) Troponin I 0.004 ng/mL (0.000-0.056) C-Reactive Protein, Quantitative 30.0 mg/dL (0.00-0.90) H Pro-B-Type Natriuretic Peptide 184 pg/mL (0-125) H Total Protein 8.0 G/DL (6.4-8.2) Albumin 2.2 G/DL (3.4-5.0) L Globulin 5.8 g/dL Albumin/Globulin Ratio 0.4 (1.0-2.7) L Objective HEAD AND NECK: Shows status post tracheostomy.NGT in place LUNGS: Coarse rhonchi. CARDIOVASCULAR: Shows regular S1 and S2 with no gallop. ABDOMEN: Soft. EXTREMITIES: Have 1+ pitting edema. Hill Burger MD Jul 16, 2020 12:37
--- NOTE | 2020-07-16 13:00 | NUR ---
NURSE NOTES: Pt received from RAKEL Jennings. Pt stable at this time. Sedated Rass -2 on Fentanyl 100mcg/hr and Versed 10mg/hr. Trche to vent AC 15, TV 600, FiO2 45%, PEEP 5. O2sat 98%. Rt Nares NGT running Vital AF @ 60mL/hr. Bed locked and in lowest position, with call light within reach. Will resume plan of care.
--- NOTE | 2020-07-16 13:20 | NUR ---
NURSE HAND-OFF REPORT: Latest Vital Signs: Temperature 99.0 , Pulse 91 , B/P 106 /71 , Respiratory Rate 24 , O2 SAT 100 , Mechanical Ventilator, O2 Flow Rate . Vital Sign Comment: VS stable EKG Rhythm: Sinus Rhythm Rhythm change?: Jesus TOLLIVER Notified?: Jesus EDWARDS MD Response: Latest Meyers Fall Score: 70 Fall Risk: High Risk Safety Measures: Call light Within Reach, Bed Alarm Zone 1, Side Rails Side Rails x2, Bed position Low and Locked. Fall Precautions: Yellow Socks Report given to RAKEL Hudson.
--- NOTE | 2020-07-16 13:22 | Pulmonology Progress Note ---
Subjective ROS Limited/Unobtainable: Yes Interval Events: S/p tracheostomy 07/04/20 Constitutional: Reports: fever, other - T=100 HEENT: Repors: no symptoms Respiratory: Reports: no symptoms Cardiovascular: Reports: no symptoms Gastrointestinal/Abdominal: Reports: no symptoms Genitourinary: Reports: no symptoms Allergies: Coded Allergies: No Known Allergies (Unverified , 05/28/20) All Systems: reviewed and negative except above Objective Last 24 Hour Vital Signs Date Time Temp Pulse Resp B/P (MAP) Pulse Ox O2 Delivery O2 Flow Rate FiO2 07/16/20 12:30 108 31 105/66 (79) 98 07/16/20 12:15 101 22 113/72 (86) 100 07/16/20 12:00 Mechanical Ventilator Mechanical Ventilator 07/16/20 12:00 99.8 102 22 105/72 (83) 100 07/16/20 11:45 107 23 105/65 (78) 100 07/16/20 11:30 106 24 108/66 (80) 100 07/16/20 11:15 114 25 111/71 (84) 100 07/16/20 11:00 109 23 115/71 (86) 99 07/16/20 11:00 40 111/71 Mechanical Ventilator 45 07/16/20 11:00 40 111/71 Mechanical Ventilator 45 07/16/20 10:45 109 26 111/70 (84) 100 07/16/20 10:30 110 27 122/70 (87) 97 07/16/20 10:15 109 29 115/71 (86) 99 07/16/20 10:00 101 28 115/74 (88) 100 07/16/20 10:00 38 115/71 Mechanical Ventilator 45 07/16/20 10:00 38 115/71 Mechanical Ventilator 45 07/16/20 09:45 107 26 108/75 (86) 96 07/16/20 09:30 110 28 113/79 (90) 97 07/16/20 09:15 109 27 106/72 (83) 98 07/16/20 09:00 45 07/16/20 09:00 24 106/72 Mechanical Ventilator 45 07/16/20 09:00 24 106/72 Mechanical Ventilator 45 07/16/20 09:00 103 20 116/68 (84) 100 07/16/20 09:00 103 20 116/68 (84) 100 07/16/20 08:45 108 30 112/72 (85) 97 07/16/20 08:30 103 20 113/72 (86) 100 07/16/20 08:15 115 32 105/47 (66) 97 07/16/20 08:00 50 07/16/20 08:00 Mechanical Ventilator Mechanical Ventilator 07/16/20 08:00 23 105/47 Mechanical Ventilator 45 07/16/20 08:00 23 105/47 Mechanical Ventilator 45 07/16/20 08:00 109 07/16/20 08:00 100.0 103 22 116/65 (82) 99 07/16/20 07:00 27 112/64 Mechanical Ventilator 50 07/16/20 07:00 27 112/64 Mechanical Ventilator 50 07/16/20 07:00 109 27 112/64 (80) 100 07/16/20 06:30 109 27 07/16/20 06:00 113 31 114/69 (84) 97 07/16/20 06:00 31 114/69 Mechanical Ventilator 50 07/16/20 06:00 31 114/69 Mechanical Ventilator 50 07/16/20 05:01 31 101/62 Mechanical Ventilator 50 07/16/20 05:01 28 101/64 Mechanical Ventilator 50 07/16/20 05:00 108 31 101/62 (75) 98 07/16/20 04:30 25 110/60 Mechanical Ventilator 50 07/16/20 04:00 101 07/16/20 04:00 99.5 114 26 105/65 (78) 99 07/16/20 04:00 50 07/16/20 04:00 26 105/65 Mechanical Ventilator 50 07/16/20 04:00 26 105/65 Mechanical Ventilator 50 07/16/20 04:00 Mechanical Ventilator Mechanical Ventilator 07/16/20 03:20 104 35 50 07/16/20 03:00 28 106/74 Mechanical Ventilator 50 07/16/20 03:00 28 106/74 Mechanical Ventilator 50 07/16/20 03:00 99 28 106/74 (85) 99 07/16/20 02:00 105 29 100/69 (79) 97 07/16/20 02:00 29 100/69 Mechanical Ventilator 50 07/16/20 02:00 29 100/69 Mechanical Ventilator 50 07/16/20 01:00 31 104/66 Mechanical Ventilator 50 07/16/20 01:00 31 104/66 Mechanical Ventilator 50 07/16/20 01:00 98 31 104/66 (79) 100 07/16/20 00:00 99.4 90 20 100/63 (75) 100 07/16/20 00:00 97 07/16/20 00:00 20 100/63 Mechanical Ventilator 50 07/16/20 00:00 20 100/63 Mechanical Ventilator 50 07/16/20 00:00 50 07/16/20 00:00 Mechanical Ventilator Mechanical Ventilator 07/15/20 23:20 87 22 50 07/15/20 23:00 86 23 97/60 (72) 100 07/15/20 23:00 23 97/60 Mechanical Ventilator 50 07/15/20 23:00 23 97/60 Mechanical Ventilator 50 07/15/20 22:00 21 104/67 Mechanical Ventilator 50 07/15/20 22:00 21 104/67 Mechanical Ventilator 50 07/15/20 22:00 94 21 104/67 (79) 100 07/15/20 21:00 97 20 94/63 (73) 100 07/15/20 21:00 20 94/63 Mechanical Ventilator 50 07/15/20 21:00 20 94/63 Mechanical Ventilator 50 07/15/20 20:00 100.1 106 23 107/69 (82) 100 07/15/20 20:00 103 07/15/20 20:00 50 07/15/20 20:00 23 107/69 Mechanical Ventilator 50 07/15/20 20:00 23 107/69 Mechanical Ventilator 50 07/15/20 20:00 Mechanical Ventilator Mechanical Ventilator 07/15/20 19:45 21 100/61 50 07/15/20 19:30 106 24 100/61 (74) 100 07/15/20 19:25 104 21 50 07/15/20 19:15 111 34 112/68 (83) 100 07/15/20 19:00 109 24 108/69 (82) 100 07/15/20 18:45 115 30 101/70 (80) 99 07/15/20 18:30 114 31 111/63 (79) 99 07/15/20 18:15 111 29 97/67 (77) 100 07/15/20 18:11 115 21 94/59 (71) 98 07/15/20 18:00 28 66/55 Mechanical Ventilator 50 07/15/20 18:00 28 66/55 Mechanical Ventilator 50 07/15/20 18:00 112 26 66/55 (59) 97 07/15/20 17:45 108 26 108/67 (81) 100 07/15/20 17:30 110 22 106/63 (77) 100 07/15/20 17:15 110 18 100/65 (77) 100 07/15/20 17:00 109 19 102/68 (79) 100 07/15/20 16:45 99.7 108 19 101/63 (76) 100 07/15/20 16:30 107 22 106/68 (81) 99 07/15/20 16:15 106 11 99/66 (77) 99 07/15/20 16:00 50 07/15/20 16:00 108 25 98/66 (77) 100 07/15/20 16:00 Mechanical Ventilator Mechanical Ventilator 07/15/20 15:45 108 20 101/62 (75) 100 07/15/20 15:30 109 7 96/61 (73) 100 07/15/20 15:15 109 11 102/59 (73) 100 07/15/20 15:08 105 22 50 07/15/20 15:00 107 20 100/64 (76) 07/15/20 14:45 107 13 102/64 (77) 07/15/20 14:30 105 13 99/60 (73) 07/15/20 14:15 104 16 94/57 (69) 07/15/20 14:00 106 21 97/58 (71) 07/15/20 13:45 103 21 99/61 (74) 07/15/20 13:30 105 23 108/74 (85) Intake and Output 07/15/20 07/16/20 19:00 07:00 Intake Total 1299.99 ml 1060 ml Output Total 1875 ml 415 ml Balance -575.01 ml 645 ml Free Water 190 ml IV Total 389.99 ml 340 ml Tube Feeding 720 ml 720 ml Output Urine Total 1875 ml 415 ml General Appearance: no acute distress HEENT: normocephalic, status post trach Respiratory: chest wall non-tender Cardiovascular: normal peripheral pulses Abdomen: normal bowel sounds Laboratory Tests 07/16/20 03:10: White Blood Count 10.0, Red Blood Count 3.25L, Hemoglobin 9.2L, Hematocrit 29.9L , Mean Corpuscular Volume 92, Mean Corpuscular Hemoglobin 28.3, Mean Corpuscular Hemoglobin Concent 30.8L, Red Cell Distribution Width 17.0H, Platelet Count 394, Mean Platelet Volume 6.9, Neutrophils (%) (Auto) 58.1, Lymphocytes (%) (Auto) 26.6, Monocytes (%) (Auto) 7.3, Eosinophils (%) (Auto) 7.0H, Basophils (%) (Auto) 1.0, Sodium Level 142, Potassium Level 3.5, Chloride Level 98, Carbon Dioxide Level 42*H, Anion Gap 3L, Blood Urea Nitrogen 19H, Creatinine 0.5L, Estimat Glomerular Filtration Rate > 60, Glucose Level 129H, Calcium Level 9.7, Phosphorus Level 3.4, Magnesium Level 1.6L, Total Bilirubin 1.0, Aspartate Amino Transf (AST/SGOT) 28, Alanine Aminotransferase (ALT/SGPT) 15, Alkaline Phosphatase 77, Troponin I 0.004, C-Reactive Protein, Quantitative 30.0H, Pro-B-Type Natriuretic Peptide 184H, Total Protein 8.0, Albumin 2.2L, Globulin 5.8, Albumin/Globulin Ratio 0.4L Current Medications Medications (Trade) Dose Ordered Sig/Zelda Route PRN Reason Start Time Stop Time Status Last Admin Dose Admin Acetaminophen (Tylenol) 650 mg Q4H PRN NG Temp >100.5 06/29/20 10:15 07/29/20 10:14 07/08/20 18:26 Acetaminophen (Tylenol) 650 mg Q6H PRN NG Mild Pain (Pain Scale 1-3) 06/29/20 10:15 07/29/20 10:14 Chlorhexidine Gluconate (Inna-Hex 2%) 1 applic DAILY@2000 TOPIC 05/30/20 20:00 08/28/20 19:59 07/15/20 20:08 Dextrose (Dextrose 50%) 25 ml Q30M PRN IV Hypoglycemia 06/05/20 10:45 09/03/20 10:44 Dextrose (Dextrose 50%) 50 ml Q30M PRN IV Hypoglycemia 06/05/20 10:45 09/03/20 10:44 Fentanyl Citrate 250 ml @ 10 mls/hr Q24H IV 07/16/20 04:00 07/18/20 03:59 07/16/20 04:30 Furosemide (Lasix) 40 mg DAILY IV 06/22/20 09:00 07/22/20 08:59 07/16/20 08:58 Guaifenesin/ Codeine Phosphate (Robitussin with codeine) 5 ml Q6H PRN NG For Cough 07/14/20 14:15 08/13/20 14:14 07/15/20 11:05 Lansoprazole (Prevacid) 30 mg DAILY GT 07/10/20 09:00 08/09/20 08:59 07/16/20 08:57 Midazolam HCl 200 ml @ 0 mls/hr Q24H PRN IV To Patient Comfort 07/10/20 12:00 07/17/20 11:59 07/16/20 05:01 Midodrine (Pro-Amatine) 10 mg Q8HR GT 06/30/20 14:00 09/12/20 13:59 07/16/20 05:53 Norepinephrine Bitartrate 250 ml @ 0 mls/hr Q24H PRN IV For hypotension 07/14/20 18:45 07/17/20 18:40 Vitamin D (Vitamin D) 5,000 unit DAILY GT 06/28/20 09:00 07/28/20 08:59 07/16/20 08:57 Assessment/Plan Assessment/Plan 1. COVID-19 pneumonia -Intubated 05/28/20 - We will continue broad-spectrum antibiotics. -s/p solumedrol, Rocephin -Continue PEEP 6 ->7 - Peak airway pressures high; 38 - FiO2 100% -> 90 ->80->60 ->40 ->80 ->100 ->70 ->60 -> 50 ->45%; PEEP 7 ->5 -will continue OGT feeding 2. Hyponatremia -Per primary MD 3. Elevated inflammatory markers - has high D dimer; Lovenox re-started 4. Decreased PEEP Continue weaning efforts S/p trach Reported cuff leak per Rn/RT Discussed trach change with surgery Hold off for now... however noted loss of volumes on vent and high FiO2 requirements Off IV fluids Begin dc planning to subacute; will need to wean down O2 further prior to transfer Will wean off IV sedation; start Javier Duarte MD Jul 16, 2020 13:22
--- NOTE | 2020-07-16 13:27 | General Progress Note ---
Subjective Constitutional: Reports: weakness Allergies: Coded Allergies: No Known Allergies (Unverified , 05/28/20) All Systems: reviewed and negative except above Subjective trach vent ng in icu Objective Last 24 Hour Vital Signs Date Time Temp Pulse Resp B/P (MAP) Pulse Ox O2 Delivery O2 Flow Rate FiO2 07/16/20 12:30 108 31 105/66 (79) 98 07/16/20 12:15 101 22 113/72 (86) 100 07/16/20 12:00 Mechanical Ventilator Mechanical Ventilator 07/16/20 12:00 99.8 102 22 105/72 (83) 100 07/16/20 11:45 107 23 105/65 (78) 100 07/16/20 11:30 106 24 108/66 (80) 100 07/16/20 11:15 114 25 111/71 (84) 100 07/16/20 11:00 109 23 115/71 (86) 99 07/16/20 11:00 40 111/71 Mechanical Ventilator 45 07/16/20 11:00 40 111/71 Mechanical Ventilator 45 07/16/20 10:45 109 26 111/70 (84) 100 07/16/20 10:30 110 27 122/70 (87) 97 07/16/20 10:15 109 29 115/71 (86) 99 07/16/20 10:00 101 28 115/74 (88) 100 07/16/20 10:00 38 115/71 Mechanical Ventilator 45 07/16/20 10:00 38 115/71 Mechanical Ventilator 45 07/16/20 09:45 107 26 108/75 (86) 96 07/16/20 09:30 110 28 113/79 (90) 97 07/16/20 09:15 109 27 106/72 (83) 98 07/16/20 09:00 45 07/16/20 09:00 24 106/72 Mechanical Ventilator 45 07/16/20 09:00 24 106/72 Mechanical Ventilator 45 07/16/20 09:00 103 20 116/68 (84) 100 07/16/20 09:00 103 20 116/68 (84) 100 07/16/20 08:45 108 30 112/72 (85) 97 07/16/20 08:30 103 20 113/72 (86) 100 07/16/20 08:15 115 32 105/47 (66) 97 07/16/20 08:00 50 07/16/20 08:00 Mechanical Ventilator Mechanical Ventilator 07/16/20 08:00 23 105/47 Mechanical Ventilator 45 07/16/20 08:00 23 105/47 Mechanical Ventilator 45 07/16/20 08:00 109 07/16/20 08:00 100.0 103 22 116/65 (82) 99 07/16/20 07:00 27 112/64 Mechanical Ventilator 50 07/16/20 07:00 27 112/64 Mechanical Ventilator 50 07/16/20 07:00 109 27 112/64 (80) 100 07/16/20 06:30 109 27 07/16/20 06:00 113 31 114/69 (84) 97 07/16/20 06:00 31 114/69 Mechanical Ventilator 50 07/16/20 06:00 31 114/69 Mechanical Ventilator 50 07/16/20 05:01 31 101/62 Mechanical Ventilator 50 07/16/20 05:01 28 101/64 Mechanical Ventilator 50 07/16/20 05:00 108 31 101/62 (75) 98 07/16/20 04:30 25 110/60 Mechanical Ventilator 50 07/16/20 04:00 101 07/16/20 04:00 99.5 114 26 105/65 (78) 99 07/16/20 04:00 50 07/16/20 04:00 26 105/65 Mechanical Ventilator 50 07/16/20 04:00 26 105/65 Mechanical Ventilator 50 07/16/20 04:00 Mechanical Ventilator Mechanical Ventilator 07/16/20 03:20 104 35 50 07/16/20 03:00 28 106/74 Mechanical Ventilator 50 07/16/20 03:00 28 106/74 Mechanical Ventilator 50 07/16/20 03:00 99 28 106/74 (85) 99 07/16/20 02:00 105 29 100/69 (79) 97 07/16/20 02:00 29 100/69 Mechanical Ventilator 50 07/16/20 02:00 29 100/69 Mechanical Ventilator 50 07/16/20 01:00 31 104/66 Mechanical Ventilator 50 07/16/20 01:00 31 104/66 Mechanical Ventilator 50 07/16/20 01:00 98 31 104/66 (79) 100 07/16/20 00:00 99.4 90 20 100/63 (75) 100 07/16/20 00:00 97 07/16/20 00:00 20 100/63 Mechanical Ventilator 50 07/16/20 00:00 20 100/63 Mechanical Ventilator 50 07/16/20 00:00 50 07/16/20 00:00 Mechanical Ventilator Mechanical Ventilator 07/15/20 23:20 87 22 50 07/15/20 23:00 86 23 97/60 (72) 100 07/15/20 23:00 23 97/60 Mechanical Ventilator 50 07/15/20 23:00 23 97/60 Mechanical Ventilator 50 07/15/20 22:00 21 104/67 Mechanical Ventilator 50 07/15/20 22:00 21 104/67 Mechanical Ventilator 50 07/15/20 22:00 94 21 104/67 (79) 100 07/15/20 21:00 97 20 94/63 (73) 100 07/15/20 21:00 20 94/63 Mechanical Ventilator 50 07/15/20 21:00 20 94/63 Mechanical Ventilator 50 07/15/20 20:00 100.1 106 23 107/69 (82) 100 07/15/20 20:00 103 07/15/20 20:00 50 07/15/20 20:00 23 107/69 Mechanical Ventilator 50 07/15/20 20:00 23 107/69 Mechanical Ventilator 50 07/15/20 20:00 Mechanical Ventilator Mechanical Ventilator 07/15/20 19:45 21 100/61 50 07/15/20 19:30 106 24 100/61 (74) 100 07/15/20 19:25 104 21 50 07/15/20 19:15 111 34 112/68 (83) 100 07/15/20 19:00 109 24 108/69 (82) 100 07/15/20 18:45 115 30 101/70 (80) 99 07/15/20 18:30 114 31 111/63 (79) 99 07/15/20 18:15 111 29 97/67 (77) 100 07/15/20 18:11 115 21 94/59 (71) 98 07/15/20 18:00 28 66/55 Mechanical Ventilator 50 07/15/20 18:00 28 66/55 Mechanical Ventilator 50 07/15/20 18:00 112 26 66/55 (59) 97 07/15/20 17:45 108 26 108/67 (81) 100 07/15/20 17:30 110 22 106/63 (77) 100 07/15/20 17:15 110 18 100/65 (77) 100 07/15/20 17:00 109 19 102/68 (79) 100 07/15/20 16:45 99.7 108 19 101/63 (76) 100 07/15/20 16:30 107 22 106/68 (81) 99 07/15/20 16:15 106 11 99/66 (77) 99 07/15/20 16:00 50 07/15/20 16:00 108 25 98/66 (77) 100 07/15/20 16:00 Mechanical Ventilator Mechanical Ventilator 07/15/20 15:45 108 20 101/62 (75) 100 07/15/20 15:30 109 7 96/61 (73) 100 07/15/20 15:15 109 11 102/59 (73) 100 07/15/20 15:08 105 22 50 07/15/20 15:00 107 20 100/64 (76) 07/15/20 14:45 107 13 102/64 (77) 07/15/20 14:30 105 13 99/60 (73) 07/15/20 14:15 104 16 94/57 (69) 07/15/20 14:00 106 21 97/58 (71) 07/15/20 13:45 103 21 99/61 (74) 07/15/20 13:30 105 23 108/74 (85) Intake and Output 07/15/20 07/16/20 19:00 07:00 Intake Total 1299.99 ml 1060 ml Output Total 1875 ml 415 ml Balance -575.01 ml 645 ml Free Water 190 ml IV Total 389.99 ml 340 ml Tube Feeding 720 ml 720 ml Output Urine Total 1875 ml 415 ml Laboratory Tests 07/16/20 03:10: White Blood Count 10.0, Red Blood Count 3.25L, Hemoglobin 9.2L, Hematocrit 29.9L , Mean Corpuscular Volume 92, Mean Corpuscular Hemoglobin 28.3, Mean Corpuscular Hemoglobin Concent 30.8L, Red Cell Distribution Width 17.0H, Platelet Count 394, Mean Platelet Volume 6.9, Neutrophils (%) (Auto) 58.1, Lymphocytes (%) (Auto) 26.6, Monocytes (%) (Auto) 7.3, Eosinophils (%) (Auto) 7.0H, Basophils (%) (Auto) 1.0, Sodium Level 142, Potassium Level 3.5, Chloride Level 98, Carbon Dioxide Level 42*H, Anion Gap 3L, Blood Urea Nitrogen 19H, Creatinine 0.5L, Estimat Glomerular Filtration Rate > 60, Glucose Level 129H, Calcium Level 9.7, Phosphorus Level 3.4, Magnesium Level 1.6L, Total Bilirubin 1.0, Aspartate Amino Transf (AST/SGOT) 28, Alanine Aminotransferase (ALT/SGPT) 15, Alkaline Phosphatase 77, Troponin I 0.004, C-Reactive Protein, Quantitative 30.0H, Pro-B-Type Natriuretic Peptide 184H, Total Protein 8.0, Albumin 2.2L, Globulin 5.8, Albumin/Globulin Ratio 0.4L Height (Feet): 5 Height (Inches): 6.00 Weight (Pounds): 239 General Appearance: lethargic EENT: normal ENT inspection Neck: normal alignment Cardiovascular: normal peripheral pulses, normal rate, regular rhythm Respiratory/Chest: chest wall non-tender, lungs clear, normal breath sounds Abdomen: normal bowel sounds, non tender, soft Extremities: normal inspection Edema: no edema noted Arm (L), no edema noted Arm (R), no edema noted Leg (L), no edema noted Leg (R), no edema noted Pedal (L), no edema noted Pedal (R), no edema noted Generalized Neurologic: motor weakness Skin: normal pigmentation, warm/dry Assessment/Plan Problem List: (1) Hypoxia ICD Codes: R09.02 - Hypoxemia SNOMED: 212840497 (2) Respiratory failure ICD Codes: J96.90 - Respiratory failure, unspecified, unspecified whether with hypoxia or hypercapnia SNOMED: 974856123 (3) Respiratory distress ICD Codes: R06.03 - Acute respiratory distress; J12.82 - Pneumonia due to coronavirus disease 2019 SNOMED: 843558759 (4) Pneumonia due to COVID-19 virus ICD Codes: U07.1 - COVID-19; J12.82 - Pneumonia due to coronavirus disease 2019 SNOMED: 545454193264477516 Status: unchanged Assessment/Plan: vent abx id pulm f/u cbc bmp am Tank Del Cid DO Jul 16, 2020 13:27
--- NOTE | 2020-07-16 14:25 | NUR ---
INSURANCE CLINICALS AND REVIEWS FAXED TO [facility] T: [phone] EXT 1315 F: [phone]
--- NOTE | 2020-07-16 15:00 | NUR ---
NURSE NOTES: Pt turned and repositioned. Oral care done. No distress noted at this time.
--- NOTE | 2020-07-16 17:15 | NUR ---
NURSE NOTES: FiO2 decreased to 40%. Pt tolerating well.
--- NOTE | 2020-07-16 19:10 | NUR ---
NURSE NOTES: Received patient from RAKEL Hudson. patient is in bed sedated. sinus rhythm on the monitor. trach to vent shiley 8 XLT. AC 15 TV 600 FiO2 40% PEEP 5. NGT right nare running tube feeding vital AF 1.2 @60ml/hr. RIGHT femoral TLC in place, dressing clean dry and intact. bed to lowest position and locked. call light within easy reach. side rails up x2. will continue plan of care.
--- NOTE | 2020-07-16 19:15 | NUR ---
NURSE HAND-OFF REPORT: Latest Vital Signs: Temperature 99.0 , Pulse 112 , B/P 123 /85 , Respiratory Rate 18 , O2 SAT 100 , Mechanical Ventilator, FiO4 40% . Vital Sign Comment: EKG Rhythm: Sinus Tachycardia Rhythm change?: N MD Notified?: MD Response: Latest Meyers Fall Score: 70 Fall Risk: High Risk Safety Measures: Call light Within Reach, Bed Alarm Zone 1, Side Rails Side Rails x2, Bed position Low and Locked. Fall Precautions: Yellow Socks Report given to RAKEL Lizama.
--- NOTE | 2020-07-16 19:28 | Surgery Progress Note ---
Surgery Progress Note Subjective Procedure Performed right femoral central venous line insertion Additional Comments no acute events weaning labs noted Objective Last 24 Hour Vital Signs Date Time Temp Pulse Resp B/P (MAP) Pulse Ox O2 Delivery O2 Flow Rate FiO2 07/16/20 19:00 112 28 123/85 (98) 100 07/16/20 19:00 18 123/85 Mechanical Ventilator 40 07/16/20 19:00 18 123/85 Mechanical Ventilator 40 07/16/20 18:30 91 24 106/71 (83) 100 07/16/20 18:00 94 27 110/78 (89) 98 07/16/20 18:00 20 106/73 Mechanical Ventilator 40 07/16/20 18:00 20 106/73 Mechanical Ventilator 40 07/16/20 18:00 40 07/16/20 17:20 40 07/16/20 17:00 96 29 109/67 (81) 100 07/16/20 17:00 18 109/67 Mechanical Ventilator 40 07/16/20 17:00 18 109/67 Mechanical Ventilator 40 07/16/20 16:30 91 25 90/57 (68) 100 07/16/20 16:00 99.0 92 21 96/57 (70) 100 07/16/20 16:00 Mechanical Ventilator Mechanical Ventilator 07/16/20 16:00 45 07/16/20 16:00 92 07/16/20 16:00 19 111/68 Mechanical Ventilator 45 07/16/20 16:00 19 111/68 Mechanical Ventilator 45 07/16/20 15:49 91 24 45 07/16/20 15:30 18 93/64 Mechanical Ventilator 45 07/16/20 15:00 22 93/64 Mechanical Ventilator 45 07/16/20 15:00 22 93/64 Mechanical Ventilator 45 07/16/20 15:00 100 28 103/60 (74) 100 07/16/20 14:00 29 114/58 Mechanical Ventilator 29 07/16/20 14:00 29 114/58 Mechanical Ventilator 45 07/16/20 14:00 109 30 106/72 (83) 96 07/16/20 13:30 101 24 105/68 (80) 100 07/16/20 13:00 104 27 111/69 (83) 100 07/16/20 13:00 25 105/65 Mechanical Ventilator 45 07/16/20 13:00 25 105/65 Mechanical Ventilator 45 07/16/20 12:30 108 31 105/66 (79) 98 07/16/20 12:15 101 22 113/72 (86) 100 07/16/20 12:00 102 07/16/20 12:00 28 113/72 Mechanical Ventilator 45 07/16/20 12:00 28 113/72 Mechanical Ventilator 45 07/16/20 12:00 Mechanical Ventilator Mechanical Ventilator 07/16/20 12:00 99.8 102 22 105/72 (83) 100 07/16/20 11:45 107 23 105/65 (78) 100 07/16/20 11:30 106 24 108/66 (80) 100 07/16/20 11:26 112 33 45 07/16/20 11:15 114 25 111/71 (84) 100 07/16/20 11:00 109 23 115/71 (86) 99 07/16/20 11:00 40 111/71 Mechanical Ventilator 45 07/16/20 11:00 40 111/71 Mechanical Ventilator 45 07/16/20 10:45 109 26 111/70 (84) 100 07/16/20 10:30 110 27 122/70 (87) 97 07/16/20 10:15 109 29 115/71 (86) 99 07/16/20 10:00 101 28 115/74 (88) 100 07/16/20 10:00 38 115/71 Mechanical Ventilator 45 07/16/20 10:00 38 115/71 Mechanical Ventilator 45 07/16/20 09:45 107 26 108/75 (86) 96 07/16/20 09:30 110 28 113/79 (90) 97 07/16/20 09:15 109 27 106/72 (83) 98 07/16/20 09:00 45 07/16/20 09:00 24 106/72 Mechanical Ventilator 45 07/16/20 09:00 24 106/72 Mechanical Ventilator 45 07/16/20 09:00 103 20 116/68 (84) 100 07/16/20 09:00 103 20 116/68 (84) 100 07/16/20 08:45 108 30 112/72 (85) 97 07/16/20 08:30 103 20 113/72 (86) 100 07/16/20 08:15 115 32 105/47 (66) 97 07/16/20 08:00 50 07/16/20 08:00 Mechanical Ventilator Mechanical Ventilator 07/16/20 08:00 23 105/47 Mechanical Ventilator 45 07/16/20 08:00 23 105/47 Mechanical Ventilator 45 07/16/20 08:00 109 07/16/20 08:00 100.0 103 22 116/65 (82) 99 07/16/20 07:39 108 22 45 07/16/20 07:00 27 112/64 Mechanical Ventilator 50 07/16/20 07:00 27 112/64 Mechanical Ventilator 50 07/16/20 07:00 109 27 112/64 (80) 100 07/16/20 06:30 109 27 07/16/20 06:00 113 31 114/69 (84) 97 07/16/20 06:00 31 114/69 Mechanical Ventilator 50 07/16/20 06:00 31 114/69 Mechanical Ventilator 50 07/16/20 05:01 31 101/62 Mechanical Ventilator 50 07/16/20 05:01 28 101/64 Mechanical Ventilator 50 07/16/20 05:00 108 31 101/62 (75) 98 07/16/20 04:30 25 110/60 Mechanical Ventilator 50 07/16/20 04:00 101 07/16/20 04:00 99.5 114 26 105/65 (78) 99 07/16/20 04:00 50 07/16/20 04:00 26 105/65 Mechanical Ventilator 50 07/16/20 04:00 26 105/65 Mechanical Ventilator 50 07/16/20 04:00 Mechanical Ventilator Mechanical Ventilator 07/16/20 03:20 104 35 50 07/16/20 03:00 28 106/74 Mechanical Ventilator 50 07/16/20 03:00 28 106/74 Mechanical Ventilator 50 07/16/20 03:00 99 28 106/74 (85) 99 07/16/20 02:00 105 29 100/69 (79) 97 07/16/20 02:00 29 100/69 Mechanical Ventilator 50 07/16/20 02:00 29 100/69 Mechanical Ventilator 50 07/16/20 01:00 31 104/66 Mechanical Ventilator 50 07/16/20 01:00 31 104/66 Mechanical Ventilator 50 07/16/20 01:00 98 31 104/66 (79) 100 07/16/20 00:00 99.4 90 20 100/63 (75) 100 07/16/20 00:00 97 2/23/21 00:00 20 100/63 Mechanical Ventilator 50 07/16/20 00:00 20 100/63 Mechanical Ventilator 50 07/16/20 00:00 50 07/16/20 00:00 Mechanical Ventilator Mechanical Ventilator 07/15/20 23:20 87 22 50 07/15/20 23:00 86 23 97/60 (72) 100 07/15/20 23:00 23 97/60 Mechanical Ventilator 50 07/15/20 23:00 23 97/60 Mechanical Ventilator 50 07/15/20 22:00 21 104/67 Mechanical Ventilator 50 07/15/20 22:00 21 104/67 Mechanical Ventilator 50 07/15/20 22:00 94 21 104/67 (79) 100 07/15/20 21:00 97 20 94/63 (73) 100 07/15/20 21:00 20 94/63 Mechanical Ventilator 50 07/15/20 21:00 20 94/63 Mechanical Ventilator 50 07/15/20 20:00 100.1 106 23 107/69 (82) 100 07/15/20 20:00 103 07/15/20 20:00 50 07/15/20 20:00 23 107/69 Mechanical Ventilator 50 07/15/20 20:00 23 107/69 Mechanical Ventilator 50 07/15/20 20:00 Mechanical Ventilator Mechanical Ventilator 07/15/20 19:45 21 100/61 50 07/15/20 19:30 106 24 100/61 (74) 100 I&O Intake and Output 07/15/20 07/16/20 19:00 07:00 Intake Total 1299.99 ml 1060 ml Output Total 1875 ml 415 ml Balance -575.01 ml 645 ml Free Water 190 ml IV Total 389.99 ml 340 ml Tube Feeding 720 ml 720 ml Output Urine Total 1875 ml 415 ml Dressing: other Wound: other Cardiovascular: RSR Respiratory: decreased breath sounds Abdomen: soft, non-tender, present bowel sounds, non-distended Extremities: no tenderness, no cyanosis Laboratory Tests Test 07/16/20 03:10 White Blood Count 10.0 K/UL (4.8-10.8) Red Blood Count 3.25 M/UL (4.20-5.40) L Hemoglobin 9.2 G/DL (12.0-16.0) L Hematocrit 29.9 % (37.0-47.0) L Mean Corpuscular Volume 92 FL (80-99) Mean Corpuscular Hemoglobin 28.3 PG (27.0-31.0) Mean Corpuscular Hemoglobin Concent 30.8 G/DL (32.0-36.0) L Red Cell Distribution Width 17.0 % (11.6-14.8) H Platelet Count 394 K/UL (150-450) Mean Platelet Volume 6.9 FL (6.5-10.1) Neutrophils (%) (Auto) 58.1 % (45.0-75.0) Lymphocytes (%) (Auto) 26.6 % (20.0-45.0) Monocytes (%) (Auto) 7.3 % (1.0-10.0) Eosinophils (%) (Auto) 7.0 % (0.0-3.0) H Basophils (%) (Auto) 1.0 % (0.0-2.0) Sodium Level 142 MMOL/L (136-145) Potassium Level 3.5 MMOL/L (3.5-5.1) Chloride Level 98 MMOL/L (98-107) Carbon Dioxide Level 42 MMOL/L (21-32) *H Anion Gap 3 mmol/L (5-15) L Blood Urea Nitrogen 19 mg/dL (7-18) H Creatinine 0.5 MG/DL (0.55-1.30) L Estimat Glomerular Filtration Rate > 60 mL/min (>60) Glucose Level 129 MG/DL (74-106) H Calcium Level 9.7 MG/DL (8.5-10.1) Phosphorus Level 3.4 MG/DL (2.5-4.9) Magnesium Level 1.6 MG/DL (1.8-2.4) L Total Bilirubin 1.0 MG/DL (0.2-1.0) Aspartate Amino Transf (AST/SGOT) 28 U/L (15-37) Alanine Aminotransferase (ALT/SGPT) 15 U/L (12-78) Alkaline Phosphatase 77 U/L (46-116) Troponin I 0.004 ng/mL (0.000-0.056) C-Reactive Protein, Quantitative 30.0 mg/dL (0.00-0.90) H Pro-B-Type Natriuretic Peptide 184 pg/mL (0-125) H Total Protein 8.0 G/DL (6.4-8.2) Albumin 2.2 G/DL (3.4-5.0) L Globulin 5.8 g/dL Albumin/Globulin Ratio 0.4 (1.0-2.7) L Plan Problems: (1) Respiratory distress (2) Respiratory failure Assessment & Plan: 50-year-old female Covid positive respiratory insufficiency intubated on ventilatory support declining. Leukocytosis increase oxygen requirement. Vent settings per pulmonology reviewed identified and agree. Unfortunately further surgical invention at this time is not appropriate as patient is not a candidate and her current condition. Prognosis overall guarded. Tracheostomy can be considered in the future if recovering or shows improvement and requires unable to be weaned from ventilator support. Currently okay for nutritional optimization with NG tube. Will need significant monitoring for decubitus formation given patient's size and condition. Okay for air mattress tolerated. Turn every 2 hours as tolerated. Patient is otherwise critically ill and blood pressure labile. Will need to monitor closely.Bilateral infiltrates are again demonstrated. Stable tube and line positions. will need trach will need to wean vent first no cuff leak trach okay Improving weaning well DC planning placement (3) Hypoxia (4) Pneumonia due to COVID-19 virus Assessment & Plan: ++ as per pulm and ID (5) Diabetes mellitus out of control Assessment & Plan: DAILY ESTIMATED NEEDS: Needs based on Critical care, obesity 11-14kcal/kg actual body wt (140kg) kcals/kg 6493-4468 total kcals 1.5-2.0g prot/kg IBW (64.5kg) g protein/kg 96-129 g total protein 25-30ml/kg abw (83kg) mL/kg 9052-9680 total fluid mLs NUTRITION DIAGNOSIS: Swallowing difficulty R/T respiratory failure as evidenced by pt orally intubated and sedated, on OGT feeds. CURRENT TF: Vital 1.2 goal of 60ml/hr ENTERAL NUTRITION RECOMMENDATIONS: Vital AF 1.2 @ 60ml/hr x 24 hrs to provide 1440ml, 1728kcal, 108g prot, 1168ml free water * Maintain current critical care and carb controlled TF formula of Vital AF * TF @ goal meeds 100% est kcal/prot needs * HOB over 30 degrees/ water flush per MD TF may be lowered to 55ml/hr for improved BG control while maintaining Kcal and pro needs. ADDITIONAL RECOMMENDATIONS: * Calibrated bedscale wt * Monitor Propofol rate, need for TF adjustment-> now off * Monitor BGs closely : now improved, on novolog q 6rs + NISS * Monitor lytes- K elevated, monitor need for TF change * Rec bowel regimen- now w/ rectal tube . Az Devine Jul 16, 2020 19:28
[2020-07-16] MEDS: Dyna-Hex 2% Top Sol 2oz TOPIC SCH (20:26)
[2020-07-17] VITALS (42 sets, daily range): BP systolic 84–115; BP diastolic 48–81
[2020-07-17] MEDS: Versed 100mg/NS 200ml 200 ML IV PRN ×3 (01:28→23:00)
[2020-07-17] MEDS: fentaNYL 2500mcg/NS 250ml 250 ML IV SCH (01:30)
--- NOTE | 2020-07-17 02:35 | NUR ---
NURSE NOTES: bed bath performed. patient had a small soft BM. repositioned. oral care performed. vital signs stable.
[2020-07-17] MEDS: Midodrine 10mg tab GT SCH ×3 (05:21→20:27)
[2020-07-17 05:36] LABS: EOSINOPHILS % (AUTO) 6.9 % (0.0-3.0); HEMATOCRIT 31.8 % (37.0-47.0); HEMOGLOBIN 9.6 G/DL (12.0-16.0); LYMPHOCYTES % (AUTO) 23.7 % (20.0-45.0); MEAN CORPUSCULAR VOLUME 92 FL (80-99); MONOCYTES % (AUTO) 7.1 % (1.0-10.0); NEUTROPHILS % (AUTO) 61.4 % (45.0-75.0); PLATELET COUNT 362 K/UL (150-450); RED BLOOD COUNT 3.45 M/UL (4.20-5.40); WHITE BLOOD COUNT 11.1 K/UL (4.8-10.8)
[2020-07-17 06:00] LABS: ALANINE AMINOTRANSFERASE 17 U/L (12-78); ALBUMIN 2.3 G/DL (3.4-5.0); ALBUMIN/GLOBULIN RATIO 0.4 (1.0-2.7); ALKALINE PHOSPHATASE 72 U/L (46-116); ANION GAP 13 mmol/L (5-15); ASPARTATE AMINO TRANSFERASE 41 U/L (15-37); BILIRUBIN,TOTAL 1.1 MG/DL (0.2-1.0); BLOOD UREA NITROGEN 22 mg/dL (7-18); CALCIUM 9.6 MG/DL (8.5-10.1); CARBON DIOXIDE 31 MMOL/L (21-32); CHLORIDE 94 MMOL/L (98-107); CREATININE 0.6 MG/DL (0.55-1.30); PHOSPHORUS 3.7 MG/DL (2.5-4.9); POTASSIUM 3.3 MMOL/L (3.5-5.1); SODIUM 138 MMOL/L (136-145)
--- NOTE | 2020-07-17 06:03 | NUR ---
NURSE NOTES: patient had a BM. patient cleaned. vital signs stable
[2020-07-17 06:17] LABS: BILIRUBIN,DIRECT 0.2 MG/DL (0.0-0.3)
--- NOTE | 2020-07-17 06:26 | Hematology/Onc Progress Note ---
Assessment/Plan Assessment/Plan # Deep vein thrombosis of the right calf --> given onoing anemia and low plts --> consider ivc if bleeding--once stable, needs it placed --> once stable, for radiology and ivc filter placement # Thrombocytopenia is due to infection/underlying covid19+++ --> ABX ceftriaxone -->zosyn-->off --> on steriods likely cause of initial wbc --> per pulm --> plt 107->156-->192-->205 --> smear reviewed # Leukocytosis due to Pneumonia due to COVID-19 virus --> per pulm rx -> sp remdesivir --> wbc 11.9-->11 # Anemia due to chronic disease --> hgb goal is >7 --> transfuse prn --> ferritin is >1000 --> hold off on iron --> 10-->9.8->9-->8-->8.2-->9.4-->8.1-->9.9-->9.6-->9.5-->9.6 # Elevated ddimer due to covid19++ --> duplex legs is negative --> underlying covid rx # Hypoxia -> due to covid19 --> steriods as needed # Hypoxemia --> rx same as above # Respiratory failure --> on vent/trach --> per pulm # Diabetes mellitus out of control --> hgb a1c goal <7 # Poor prognosis # Dvt ppx ivc filter once more stable Appreciate consultation and bowen RN Subjective Allergies: Coded Allergies: No Known Allergies (Unverified , 05/28/20) All Systems: reviewed and negative except above Subjective 06/10 nv, on vent, with ogt, on fentanyl and versed, plt stable 06/11 nv, vent adjusted is on ogt, meds reviewed 06/12 nv, vent, meds noted, labs noted, no bleeding, hgb 10.4 06/13 nv, is on vent, meds reviewed, no bleeding, cbc reviewed 06/14 nv, on vent, tachy, labs reviewed, gross hematuria, febrile overnight, abx 06/17 nv, on vent, labs noted, no major changes, feeling better overnight 06/18 nv, meds reviewed, labs noted, no major events, hgb 8.6 06/19 nv, remains intubated, with fluids, labs reviewed, meds noted 06/20 nv, intubated remains on restraints, meds noted as well, as labs 06/21 nv, remains on vent, on restraints, meds reviewed, labs noted 06/22: covering Dr. Del Cid no acute events 06/23 sedated, on vent, nv, intubated, meds reviewed, versed 06/24 nv, on vent, no night sweats, no bleeding, remains in icu 06/25 nv, on vent, icu, meds noted, no bleeding, comfortable 06/26 nv, on versed, icu, weaning parameters, labs noted 06/27 nv, overnight fighting vent, as per pulm fentanyl on board 06/28 nv, on vent, labs reviewed, as per pulm, meds noted 06/30 nv, icu, labs pending, is on fentanyl, versed, no new changes 07/01 nv, icu, is on vent, labs pending, no new changes per rn 07/02 nv, icu is on vent, labs noted, hgb is stable 07/03 nv, icu, is on vent, potential trrach when stable, cbc reviewed 07/04 icu, nv, labs are noted, stable for trach today bowen Lizama 07/05 icu, nv, on vent, with ng and picc in place, labs noted, s/p trach 07/07 icu, nv, on tv, no bleeding, labs noted, meds reviewed 07/08 icu, nv, on tv, labs reviewed, meds noted, no bleeding 07/09 icu, nv, meds noted, no bleeding, blood transfusion was completed 07/10 icu, nv, labs ntoed, no bleeding, hgb improved, hgb 7.8 07/11 icu, nv, labs reviewed, hgb is improved, for ivcf if stabilizes 07/12 icu, nv, labs reviewed, meds noted, no bleeding, remains on vent 07/13 icu, on vent, nv, no bleeding, labs reviewed, no major events, dw rn 07/14 icu, on vent, nv, tolerating ngt feeds, dw Rn, meds reviewed 07/15 icu, on vent, trach, tolerating ngt, meds noted, no bleeding 07/16 icu, vent, labs are noted, with trach, is stable, hgb 9.2 07/17 icu, had a bm overnight, remains on vent with trach, labs noted Objective Objective Current Medications Medications (Trade) Dose Ordered Sig/Zelda Route PRN Reason Start Time Stop Time Status Last Admin Dose Admin Acetaminophen (Tylenol) 650 mg Q4H PRN NG Temp >100.5 06/29/20 10:15 07/29/20 10:14 07/08/20 18:26 Acetaminophen (Tylenol) 650 mg Q6H PRN NG Mild Pain (Pain Scale 1-3) 06/29/20 10:15 07/29/20 10:14 Chlorhexidine Gluconate (Inna-Hex 2%) 1 applic DAILY@2000 TOPIC 05/30/20 20:00 08/28/20 19:59 07/16/20 20:26 Dextrose (Dextrose 50%) 25 ml Q30M PRN IV Hypoglycemia 06/05/20 10:45 09/03/20 10:44 Dextrose (Dextrose 50%) 50 ml Q30M PRN IV Hypoglycemia 06/05/20 10:45 09/03/20 10:44 Fentanyl Citrate 250 ml @ 10 mls/hr Q24H IV 07/16/20 04:00 07/18/20 03:59 07/17/20 01:30 Furosemide (Lasix) 40 mg DAILY IV 06/22/20 09:00 07/22/20 08:59 07/16/20 08:58 Guaifenesin/ Codeine Phosphate (Robitussin with codeine) 5 ml Q6H PRN NG For Cough 07/14/20 14:15 08/13/20 14:14 07/15/20 11:05 Lansoprazole (Prevacid) 30 mg DAILY GT 07/10/20 09:00 08/09/20 08:59 07/16/20 08:57 Midazolam HCl 200 ml @ 0 mls/hr Q24H PRN IV To Patient Comfort 07/10/20 12:00 07/17/20 11:59 07/17/20 01:28 Midodrine (Pro-Amatine) 10 mg Q8HR GT 06/30/20 14:00 09/12/20 13:59 07/17/20 05:21 Norepinephrine Bitartrate 250 ml @ 0 mls/hr Q24H PRN IV For hypotension 07/14/20 18:45 07/17/20 18:40 Quetiapine Fumarate (SEROqueL) 50 mg Q12HR GT 07/16/20 13:30 08/30/20 13:29 07/16/20 20:26 Vitamin D (Vitamin D) 5,000 unit DAILY GT 06/28/20 09:00 07/28/20 08:59 07/16/20 08:57 Last 24 Hour Vital Signs Date Time Temp Pulse Resp B/P (MAP) Pulse Ox O2 Delivery O2 Flow Rate FiO2 07/17/20 05:16 97 37 60 07/17/20 05:00 103 24 103/66 (78) 100 07/17/20 04:30 105 28 105/65 (78) 100 07/17/20 04:00 60 07/17/20 04:00 Mechanical Ventilator Mechanical Ventilator 07/17/20 04:00 104 07/17/20 04:00 28 103/67 Endotracheal Tube 60 07/17/20 04:00 28 103/67 Endotracheal Tube 60 07/17/20 04:00 98.9 107 24 103/67 (79) 100 07/17/20 03:15 116 33 60 07/17/20 03:00 116 28 107/79 (88) 98 07/17/20 03:00 32 107/79 Endotracheal Tube 60 07/17/20 03:00 32 107/79 Endotracheal Tube 60 07/17/20 02:30 125 31 114/64 (81) 75 07/17/20 02:00 101 29 98/67 (77) 100 07/17/20 02:00 33 98/67 Endotracheal Tube 60 07/17/20 02:00 33 98/67 Endotracheal Tube 60 07/17/20 01:30 29 101/61 40 07/17/20 01:28 29 101/61 Endotracheal Tube 40 07/17/20 01:26 99 23 40 07/17/20 01:00 31 101/61 Endotracheal Tube 40 07/17/20 01:00 31 101/61 Endotracheal Tube 40 07/17/20 01:00 110 39 115/69 (84) 96 07/17/20 00:30 101 27 101/65 (77) 98 07/17/20 00:00 98.9 97 20 96/73 (81) 100 07/17/20 00:00 28 99/66 Endotracheal Tube 40 07/17/20 00:00 28 99/66 Endotracheal Tube 40 07/17/20 00:00 40 07/17/20 00:00 108 07/17/20 00:00 Mechanical Ventilator Mechanical Ventilator 07/16/20 23:32 97 22 40 07/16/20 23:30 102 25 99/61 (74) 99 07/16/20 23:00 100 25 100/65 (77) 100 07/16/20 23:00 27 96/63 Endotracheal Tube 40 07/16/20 23:00 27 96/63 Mechanical Ventilator 40 07/16/20 22:00 30 103/66 Endotracheal Tube 40 07/16/20 22:00 30 103/66 Endotracheal Tube 40 07/16/20 22:00 115 38 106/71 (83) 88 07/16/20 21:39 103 26 40 07/16/20 21:00 29 95/63 Endotracheal Tube 40 07/16/20 21:00 29 95/63 Endotracheal Tube 40 07/16/20 21:00 104 28 97/61 (73) 100 07/16/20 20:00 99.0 99 25 93/71 (78) 99 07/16/20 20:00 Mechanical Ventilator Mechanical Ventilator 07/16/20 20:00 32 105/66 Endotracheal Tube 40 07/16/20 20:00 32 105/66 Endotracheal Tube 40 07/16/20 20:00 106 07/16/20 19:25 94 23 40 07/16/20 19:00 112 28 123/85 (98) 100 07/16/20 19:00 18 123/85 Mechanical Ventilator 40 07/16/20 19:00 18 123/85 Mechanical Ventilator 40 07/16/20 18:30 91 24 106/71 (83) 100 07/16/20 18:00 94 27 110/78 (89) 98 07/16/20 18:00 20 106/73 Mechanical Ventilator 40 07/16/20 18:00 20 106/73 Mechanical Ventilator 40 07/16/20 18:00 40 07/16/20 17:20 40 07/16/20 17:00 96 29 109/67 (81) 100 07/16/20 17:00 18 109/67 Mechanical Ventilator 40 07/16/20 17:00 18 109/67 Mechanical Ventilator 40 07/16/20 16:30 91 25 90/57 (68) 100 07/16/20 16:00 99.0 92 21 96/57 (70) 100 07/16/20 16:00 Mechanical Ventilator Mechanical Ventilator 07/16/20 16:00 45 07/16/20 16:00 92 07/16/20 16:00 19 111/68 Mechanical Ventilator 45 07/16/20 16:00 19 111/68 Mechanical Ventilator 45 07/16/20 15:49 91 24 45 07/16/20 15:30 18 93/64 Mechanical Ventilator 45 07/16/20 15:00 22 93/64 Mechanical Ventilator 45 07/16/20 15:00 22 93/64 Mechanical Ventilator 45 07/16/20 15:00 100 28 103/60 (74) 100 07/16/20 14:00 29 114/58 Mechanical Ventilator 29 07/16/20 14:00 29 114/58 Mechanical Ventilator 45 07/16/20 14:00 109 30 106/72 (83) 96 07/16/20 13:30 101 24 105/68 (80) 100 07/16/20 13:00 104 27 111/69 (83) 100 07/16/20 13:00 25 105/65 Mechanical Ventilator 45 07/16/20 13:00 25 105/65 Mechanical Ventilator 45 07/16/20 12:30 108 31 105/66 (79) 98 07/16/20 12:15 101 22 113/72 (86) 100 07/16/20 12:00 102 07/16/20 12:00 28 113/72 Mechanical Ventilator 45 07/16/20 12:00 28 113/72 Mechanical Ventilator 45 07/16/20 12:00 Mechanical Ventilator Mechanical Ventilator 07/16/20 12:00 99.8 102 22 105/72 (83) 100 07/16/20 11:45 107 23 105/65 (78) 100 07/16/20 11:30 106 24 108/66 (80) 100 07/16/20 11:26 112 33 45 07/16/20 11:15 114 25 111/71 (84) 100 07/16/20 11:00 109 23 115/71 (86) 99 07/16/20 11:00 40 111/71 Mechanical Ventilator 45 07/16/20 11:00 40 111/71 Mechanical Ventilator 45 07/16/20 10:45 109 26 111/70 (84) 100 07/16/20 10:30 110 27 122/70 (87) 97 07/16/20 10:15 109 29 115/71 (86) 99 07/16/20 10:00 101 28 115/74 (88) 100 07/16/20 10:00 38 115/71 Mechanical Ventilator 45 07/16/20 10:00 38 115/71 Mechanical Ventilator 45 07/16/20 09:45 107 26 108/75 (86) 96 07/16/20 09:30 110 28 113/79 (90) 97 07/16/20 09:15 109 27 106/72 (83) 98 07/16/20 09:00 45 07/16/20 09:00 24 106/72 Mechanical Ventilator 45 07/16/20 09:00 24 106/72 Mechanical Ventilator 45 07/16/20 09:00 103 20 116/68 (84) 100 07/16/20 09:00 103 20 116/68 (84) 100 07/16/20 08:45 108 30 112/72 (85) 97 07/16/20 08:30 103 20 113/72 (86) 100 07/16/20 08:15 115 32 105/47 (66) 97 07/16/20 08:00 50 07/16/20 08:00 Mechanical Ventilator Mechanical Ventilator 07/16/20 08:00 23 105/47 Mechanical Ventilator 45 07/16/20 08:00 23 105/47 Mechanical Ventilator 45 07/16/20 08:00 109 07/16/20 08:00 100.0 103 22 116/65 (82) 99 07/16/20 07:39 108 22 45 07/16/20 07:00 27 112/64 Mechanical Ventilator 50 07/16/20 07:00 27 112/64 Mechanical Ventilator 50 07/16/20 07:00 109 27 112/64 (80) 100 07/16/20 06:30 109 27 07/16/20 06:00 113 31 114/69 (84) 97 07/16/20 06:00 31 114/69 Mechanical Ventilator 50 07/16/20 06:00 31 114/69 Mechanical Ventilator 50 07/16/20 05:01 31 101/62 Mechanical Ventilator 50 07/16/20 05:01 28 101/64 Mechanical Ventilator 50 07/16/20 05:00 108 31 101/62 (75) 98 2/23/21 04:30 25 110/60 Mechanical Ventilator 50 07/16/20 04:00 101 07/16/20 04:00 99.5 114 26 105/65 (78) 99 07/16/20 04:00 50 07/16/20 04:00 26 105/65 Mechanical Ventilator 50 07/16/20 04:00 26 105/65 Mechanical Ventilator 50 07/16/20 04:00 Mechanical Ventilator Mechanical Ventilator 07/16/20 03:20 104 35 50 07/16/20 03:00 28 106/74 Mechanical Ventilator 50 07/16/20 03:00 28 106/74 Mechanical Ventilator 50 07/16/20 03:00 99 28 106/74 (85) 99 07/16/20 02:00 105 29 100/69 (79) 97 07/16/20 02:00 29 100/69 Mechanical Ventilator 50 07/16/20 02:00 29 100/69 Mechanical Ventilator 50 07/16/20 01:00 31 104/66 Mechanical Ventilator 50 07/16/20 01:00 31 104/66 Mechanical Ventilator 50 07/16/20 01:00 98 31 104/66 (79) 100 07/16/20 00:00 99.4 90 20 100/63 (75) 100 07/16/20 00:00 97 07/16/20 00:00 20 100/63 Mechanical Ventilator 50 07/16/20 00:00 20 100/63 Mechanical Ventilator 50 07/16/20 00:00 50 07/16/20 00:00 Mechanical Ventilator Mechanical Ventilator 07/15/20 23:20 87 22 50 07/15/20 23:00 86 23 97/60 (72) 100 07/15/20 23:00 23 97/60 Mechanical Ventilator 50 07/15/20 23:00 23 97/60 Mechanical Ventilator 50 07/15/20 22:00 21 104/67 Mechanical Ventilator 50 07/15/20 22:00 21 104/67 Mechanical Ventilator 50 07/15/20 22:00 94 21 104/67 (79) 100 07/15/20 21:00 97 20 94/63 (73) 100 07/15/20 21:00 20 94/63 Mechanical Ventilator 50 07/15/20 21:00 20 94/63 Mechanical Ventilator 50 07/15/20 20:00 100.1 106 23 107/69 (82) 100 2/22/21 20:00 103 07/15/20 20:00 50 07/15/20 20:00 23 107/69 Mechanical Ventilator 50 07/15/20 20:00 23 107/69 Mechanical Ventilator 50 07/15/20 20:00 Mechanical Ventilator Mechanical Ventilator 07/15/20 19:45 21 100/61 50 07/15/20 19:30 106 24 100/61 (74) 100 07/15/20 19:25 104 21 50 07/15/20 19:15 111 34 112/68 (83) 100 07/15/20 19:00 109 24 108/69 (82) 100 07/15/20 18:45 115 30 101/70 (80) 99 07/15/20 18:30 114 31 111/63 (79) 99 07/15/20 18:15 111 29 97/67 (77) 100 07/15/20 18:11 115 21 94/59 (71) 98 07/15/20 18:00 28 66/55 Mechanical Ventilator 50 07/15/20 18:00 28 66/55 Mechanical Ventilator 50 07/15/20 18:00 112 26 66/55 (59) 97 07/15/20 17:45 108 26 108/67 (81) 100 07/15/20 17:30 110 22 106/63 (77) 100 07/15/20 17:15 110 18 100/65 (77) 100 07/15/20 17:00 109 19 102/68 (79) 100 07/15/20 16:45 99.7 108 19 101/63 (76) 100 07/15/20 16:30 107 22 106/68 (81) 99 07/15/20 16:15 106 11 99/66 (77) 99 07/15/20 16:00 50 07/15/20 16:00 108 25 98/66 (77) 100 07/15/20 16:00 Mechanical Ventilator Mechanical Ventilator 07/15/20 15:45 108 20 101/62 (75) 100 07/15/20 15:30 109 7 96/61 (73) 100 07/15/20 15:15 109 11 102/59 (73) 100 07/15/20 15:08 105 22 50 07/15/20 15:00 107 20 100/64 (76) 07/15/20 14:45 107 13 102/64 (77) 07/15/20 14:30 105 13 99/60 (73) 07/15/20 14:15 104 16 94/57 (69) 07/15/20 14:00 106 21 97/58 (71) 07/15/20 13:45 103 21 99/61 (74) 07/15/20 13:30 105 23 108/74 (85) 07/15/20 13:15 111 24 108/71 (83) 97 07/15/20 13:00 112 26 116/68 (84) 96 07/15/20 12:45 117 28 114/66 (82) 94 07/15/20 12:30 108 23 100/61 (74) 96 07/15/20 12:15 108 24 109/65 (80) 96 07/15/20 12:00 100.3 107 24 117/66 (83) 93 07/15/20 12:00 Mechanical Ventilator Mechanical Ventilator 07/15/20 12:00 50 07/15/20 11:45 105 22 123/89 (100) 92 07/15/20 11:30 110 27 142/80 (100) 87 07/15/20 11:15 111 31 138/85 (102) 93 07/15/20 11:00 106 27 125/92 (103) 96 07/15/20 10:59 106 30 50 07/15/20 10:45 106 25 124/81 (95) 98 07/15/20 10:30 104 23 123/74 (90) 98 07/15/20 10:15 107 30 121/76 (91) 98 07/15/20 10:00 102 22 128/79 (95) 97 07/15/20 09:45 109 30 126/84 (98) 95 07/15/20 09:30 104 25 120/80 (93) 96 07/15/20 09:15 100 23 115/84 (94) 97 07/15/20 09:00 107 31 122/90 (101) 96 07/15/20 08:45 101 23 113/76 (88) 96 07/15/20 08:30 98 20 116/82 (93) 97 07/15/20 08:17 30 121/84 Mechanical Ventilator 50 07/15/20 08:15 106 27 121/85 (97) 96 07/15/20 08:00 50 07/15/20 08:00 Mechanical Ventilator Mechanical Ventilator 07/15/20 08:00 98.5 105 26 121/84 (96) 97 07/15/20 07:45 104 24 121/83 (96) 97 07/15/20 07:30 100 21 119/73 (88) 98 07/15/20 07:25 102 24 50 07/15/20 07:15 104 25 128/83 (98) 98 07/15/20 07:00 108 25 125/79 (94) 98 Intake and Output 07/16/20 07/17/20 19:00 07:00 Intake Total 1216 ml 870 ml Output Total 1725 ml 545 ml Balance -509 ml 325 ml Free Water 100 ml 60 ml IV Total 336 ml 270 ml Tube Feeding 660 ml 540 ml Other 120 ml Output Urine Total 1725 ml 545 ml # Bowel Movements 2 Labs Test 07/14/20 09:09 07/14/20 11:05 07/14/20 17:10 07/16/20 03:10 Arterial Blood pH 7.400 (7.350-7.450) 7.422 (7.350-7.450) Arterial Blood Partial Pressure CO2 65.9 mmHg (35.0-45.0) 69.8 mmHg (35.0-45.0) Arterial Blood Partial Pressure O2 56.3 mmHg (75.0-100.0) 151.4 mmHg (75.0-100.0) Arterial Blood HCO3 39.9 mmol/L (22.0-26.0) 44.5 mmol/L (22.0-26.0) Arterial Blood Oxygen Saturation 87.1 % (95-100) 98.9 % (95-100) Arterial Blood Base Excess 12.7 (-2-2) 16.9 (-2-2) Jeremiah Test Positive Positive White Blood Count 11.0 K/UL (4.8-10.8) 10.0 K/UL (4.8-10.8) Red Blood Count 3.42 M/UL (4.20-5.40) 3.25 M/UL (4.20-5.40) Hemoglobin 9.5 G/DL (12.0-16.0) 9.2 G/DL (12.0-16.0) Hematocrit 31.6 % (37.0-47.0) 29.9 % (37.0-47.0) Mean Corpuscular Volume 92 FL (80-99) 92 FL (80-99) Mean Corpuscular Hemoglobin 27.8 PG (27.0-31.0) 28.3 PG (27.0-31.0) Mean Corpuscular Hemoglobin Concent 30.1 G/DL (32.0-36.0) 30.8 G/DL (32.0-36.0) Red Cell Distribution Width 17.5 % (11.6-14.8) 17.0 % (11.6-14.8) Platelet Count 424 K/UL (150-450) 394 K/UL (150-450) Mean Platelet Volume 7.4 FL (6.5-10.1) 6.9 FL (6.5-10.1) Neutrophils (%) (Auto) 63.4 % (45.0-75.0) 58.1 % (45.0-75.0) Lymphocytes (%) (Auto) 20.1 % (20.0-45.0) 26.6 % (20.0-45.0) Monocytes (%) (Auto) 7.1 % (1.0-10.0) 7.3 % (1.0-10.0) Eosinophils (%) (Auto) 8.2 % (0.0-3.0) 7.0 % (0.0-3.0) Basophils (%) (Auto) 1.2 % (0.0-2.0) 1.0 % (0.0-2.0) Sodium Level 140 MMOL/L (136-145) 142 MMOL/L (136-145) Potassium Level 3.7 MMOL/L (3.5-5.1) 3.5 MMOL/L (3.5-5.1) Chloride Level 95 MMOL/L (98-107) 98 MMOL/L (98-107) Carbon Dioxide Level 41 MMOL/L (21-32) 42 MMOL/L (21-32) Anion Gap 5 mmol/L (5-15) 3 mmol/L (5-15) Blood Urea Nitrogen 11 mg/dL (7-18) 19 mg/dL (7-18) Creatinine 0.5 MG/DL (0.55-1.30) 0.5 MG/DL (0.55-1.30) Estimat Glomerular Filtration Rate > 60 mL/min (>60) > 60 mL/min (>60) Glucose Level 140 MG/DL (74-106) 129 MG/DL (74-106) Calcium Level 10.1 MG/DL (8.5-10.1) 9.7 MG/DL (8.5-10.1) Total Bilirubin 1.0 MG/DL (0.2-1.0) 1.0 MG/DL (0.2-1.0) Aspartate Amino Transf (AST/SGOT) 20 U/L (15-37) 28 U/L (15-37) Alanine Aminotransferase (ALT/SGPT) 12 U/L (12-78) 15 U/L (12-78) Alkaline Phosphatase 76 U/L (46-116) 77 U/L (46-116) Total Protein 8.2 G/DL (6.4-8.2) 8.0 G/DL (6.4-8.2) Albumin 2.1 G/DL (3.4-5.0) 2.2 G/DL (3.4-5.0) Globulin 6.1 g/dL 5.8 g/dL Albumin/Globulin Ratio 0.3 (1.0-2.7) 0.4 (1.0-2.7) Triglycerides Level 193 MG/DL (30-150) Phosphorus Level 3.4 MG/DL (2.5-4.9) Magnesium Level 1.6 MG/DL (1.8-2.4) Troponin I 0.004 ng/mL (0.000-0.056) C-Reactive Protein, Quantitative 30.0 mg/dL (0.00-0.90) Pro-B-Type Natriuretic Peptide 184 pg/mL (0-125) Test 07/17/20 03:50 White Blood Count 11.1 K/UL (4.8-10.8) Red Blood Count 3.45 M/UL (4.20-5.40) Hemoglobin 9.6 G/DL (12.0-16.0) Hematocrit 31.8 % (37.0-47.0) Mean Corpuscular Volume 92 FL (80-99) Mean Corpuscular Hemoglobin 27.7 PG (27.0-31.0) Mean Corpuscular Hemoglobin Concent 30.1 G/DL (32.0-36.0) Red Cell Distribution Width 17.0 % (11.6-14.8) Platelet Count 362 K/UL (150-450) Mean Platelet Volume 7.3 FL (6.5-10.1) Neutrophils (%) (Auto) 61.4 % (45.0-75.0) Lymphocytes (%) (Auto) 23.7 % (20.0-45.0) Monocytes (%) (Auto) 7.1 % (1.0-10.0) Eosinophils (%) (Auto) 6.9 % (0.0-3.0) Basophils (%) (Auto) 1.0 % (0.0-2.0) Sodium Level 138 MMOL/L (136-145) Potassium Level 3.3 MMOL/L (3.5-5.1) Chloride Level 94 MMOL/L (98-107) Carbon Dioxide Level 31 MMOL/L (21-32) Anion Gap 13 mmol/L (5-15) Blood Urea Nitrogen 22 mg/dL (7-18) Creatinine 0.6 MG/DL (0.55-1.30) Estimat Glomerular Filtration Rate > 60 mL/min (>60) Glucose Level 130 MG/DL (74-106) Calcium Level 9.6 MG/DL (8.5-10.1) Phosphorus Level 3.7 MG/DL (2.5-4.9) Magnesium Level 1.8 MG/DL (1.8-2.4) Total Bilirubin 1.1 MG/DL (0.2-1.0) Direct Bilirubin 0.2 MG/DL (0.0-0.3) Aspartate Amino Transf (AST/SGOT) 41 U/L (15-37) Alanine Aminotransferase (ALT/SGPT) 17 U/L (12-78) Alkaline Phosphatase 72 U/L (46-116) Total Protein 8.2 G/DL (6.4-8.2) Albumin 2.3 G/DL (3.4-5.0) Globulin 5.9 g/dL Albumin/Globulin Ratio 0.4 (1.0-2.7) Height (Feet): 5 Height (Inches): 6.00 Weight (Pounds): 239 Objective GeNL: nv HEENT: ngt++ Pulm: vent/trach++ CV: rrr Abd: soft, nt, nd Ext: no cce Myron Condon MD Jul 17, 2020 06:26
--- NOTE | 2020-07-17 07:19 | NUR ---
NURSE HAND-OFF REPORT: Latest Vital Signs: Temperature 98.9 , Pulse 104 , B/P 90 /58 , Respiratory Rate 28 , O2 SAT 98 , Endotracheal Tube, O2 Flow Rate . Vital Sign Comment: stable EKG Rhythm: Sinus Tachycardia Rhythm change?: Jesus TOLLIVER Notified?: Jesus EDWARDS MD Response: Latest Meyers Fall Score: 70 Fall Risk: High Risk Safety Measures: Call light Within Reach, Bed Alarm Zone 1, Side Rails Side Rails x2, Bed position Low and Locked. Fall Precautions: Yellow Socks Report given to RAKEL Villasenor.
--- NOTE | 2020-07-17 07:30 | NUR ---
NURSE NOTES: Pt was assessed after change of shift report from Dimas ELLINGTON. Sedated while on Fentanyl drip @100mcg/hr and Versed drip 10mg/hr to maintain RASS -2 light sedation. Trach to vent Shiley 8 XLT with vent settings AC15, VT600, Peep 5, FIO2 40% with O2Sat 100%. 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 NGT with feeding Vital AF infusing at goal rate of 60ml/hour, with zero residual. Elnnon catheter 18F, draining dark yellow urine. Central line right femoral triple lumen, patent, dressing intact, connected to Fentanyl/Versed drips. Skin is intact. Pt is on pressure release mattress, HOB at 30degrees, bed locked, three side rails up. Will continue to monitor pt and follow plan of care per MD orders and protocol.
[2020-07-17] MEDS: Vitamin D 1000 units Tab GT SCH (09:22)
--- NOTE | 2020-07-17 09:58 | General Progress Note ---
Subjective Constitutional: Reports: weakness Allergies: Coded Allergies: No Known Allergies (Unverified , 05/28/20) All Systems: reviewed and negative except above Subjective trach vent ng in icu Objective Last 24 Hour Vital Signs Date Time Temp Pulse Resp B/P (MAP) Pulse Ox O2 Delivery O2 Flow Rate FiO2 07/17/20 07:05 96 30 60 07/17/20 07:00 28 90/58 Endotracheal Tube 40 07/17/20 07:00 28 90/58 Endotracheal Tube 40 07/17/20 07:00 104 24 90/58 (69) 98 07/17/20 06:30 110 21 07/17/20 06:30 112 26 92/71 (78) 95 07/17/20 06:00 32 103/73 Endotracheal Tube 40 07/17/20 06:00 32 103/73 Endotracheal Tube 40 07/17/20 06:00 130 34 104/65 (78) 69 07/17/20 05:30 108 36 110/81 (91) 98 07/17/20 05:16 97 37 60 07/17/20 05:00 28 106/70 Endotracheal Tube 40 07/17/20 05:00 28 106/70 Endotracheal Tube 40 07/17/20 05:00 103 24 103/66 (78) 100 07/17/20 04:30 105 28 105/65 (78) 100 07/17/20 04:00 60 07/17/20 04:00 Mechanical Ventilator Mechanical Ventilator 07/17/20 04:00 104 07/17/20 04:00 28 103/67 Endotracheal Tube 60 07/17/20 04:00 28 103/67 Endotracheal Tube 60 07/17/20 04:00 98.9 107 24 103/67 (79) 100 07/17/20 03:15 116 33 60 07/17/20 03:00 116 28 107/79 (88) 98 07/17/20 03:00 32 107/79 Endotracheal Tube 60 07/17/20 03:00 32 107/79 Endotracheal Tube 60 07/17/20 02:30 125 31 114/64 (81) 75 07/17/20 02:00 101 29 98/67 (77) 100 07/17/20 02:00 33 98/67 Endotracheal Tube 60 07/17/20 02:00 33 98/67 Endotracheal Tube 60 07/17/20 01:30 29 101/61 40 07/17/20 01:28 29 101/61 Endotracheal Tube 40 07/17/20 01:26 99 23 40 07/17/20 01:00 31 101/61 Endotracheal Tube 40 07/17/20 01:00 31 101/61 Endotracheal Tube 40 07/17/20 01:00 110 39 115/69 (84) 96 07/17/20 00:30 101 27 101/65 (77) 98 07/17/20 00:00 98.9 97 20 96/73 (81) 100 07/17/20 00:00 28 99/66 Endotracheal Tube 40 07/17/20 00:00 28 99/66 Endotracheal Tube 40 07/17/20 00:00 40 07/17/20 00:00 108 07/17/20 00:00 Mechanical Ventilator Mechanical Ventilator 07/16/20 23:32 97 22 40 07/16/20 23:30 102 25 99/61 (74) 99 07/16/20 23:00 100 25 100/65 (77) 100 07/16/20 23:00 27 96/63 Endotracheal Tube 40 07/16/20 23:00 27 96/63 Mechanical Ventilator 40 07/16/20 22:00 30 103/66 Endotracheal Tube 40 07/16/20 22:00 30 103/66 Endotracheal Tube 40 07/16/20 22:00 115 38 106/71 (83) 88 07/16/20 21:39 103 26 40 07/16/20 21:00 29 95/63 Endotracheal Tube 40 07/16/20 21:00 29 95/63 Endotracheal Tube 40 07/16/20 21:00 104 28 97/61 (73) 100 07/16/20 20:00 99.0 99 25 93/71 (78) 99 07/16/20 20:00 Mechanical Ventilator Mechanical Ventilator 07/16/20 20:00 32 105/66 Endotracheal Tube 40 07/16/20 20:00 32 105/66 Endotracheal Tube 40 07/16/20 20:00 106 07/16/20 19:25 94 23 40 07/16/20 19:00 112 28 123/85 (98) 100 07/16/20 19:00 18 123/85 Mechanical Ventilator 40 07/16/20 19:00 18 123/85 Mechanical Ventilator 40 07/16/20 18:30 91 24 106/71 (83) 100 07/16/20 18:00 94 27 110/78 (89) 98 07/16/20 18:00 20 106/73 Mechanical Ventilator 40 07/16/20 18:00 20 106/73 Mechanical Ventilator 40 07/16/20 18:00 40 07/16/20 17:20 40 07/16/20 17:00 96 29 109/67 (81) 100 07/16/20 17:00 18 109/67 Mechanical Ventilator 40 07/16/20 17:00 18 109/67 Mechanical Ventilator 40 07/16/20 16:30 91 25 90/57 (68) 100 07/16/20 16:00 99.0 92 21 96/57 (70) 100 07/16/20 16:00 Mechanical Ventilator Mechanical Ventilator 07/16/20 16:00 45 07/16/20 16:00 92 07/16/20 16:00 19 111/68 Mechanical Ventilator 45 07/16/20 16:00 19 111/68 Mechanical Ventilator 45 07/16/20 15:49 91 24 45 07/16/20 15:30 18 93/64 Mechanical Ventilator 45 07/16/20 15:00 22 93/64 Mechanical Ventilator 45 07/16/20 15:00 22 93/64 Mechanical Ventilator 45 07/16/20 15:00 100 28 103/60 (74) 100 07/16/20 14:00 29 114/58 Mechanical Ventilator 29 07/16/20 14:00 29 114/58 Mechanical Ventilator 45 07/16/20 14:00 109 30 106/72 (83) 96 07/16/20 13:30 101 24 105/68 (80) 100 07/16/20 13:00 104 27 111/69 (83) 100 07/16/20 13:00 25 105/65 Mechanical Ventilator 45 07/16/20 13:00 25 105/65 Mechanical Ventilator 45 07/16/20 12:30 108 31 105/66 (79) 98 07/16/20 12:15 101 22 113/72 (86) 100 07/16/20 12:00 102 07/16/20 12:00 28 113/72 Mechanical Ventilator 45 07/16/20 12:00 28 113/72 Mechanical Ventilator 45 07/16/20 12:00 Mechanical Ventilator Mechanical Ventilator 07/16/20 12:00 99.8 102 22 105/72 (83) 100 07/16/20 11:45 107 23 105/65 (78) 100 07/16/20 11:30 106 24 108/66 (80) 100 07/16/20 11:26 112 33 45 07/16/20 11:15 114 25 111/71 (84) 100 07/16/20 11:00 109 23 115/71 (86) 99 07/16/20 11:00 40 111/71 Mechanical Ventilator 45 07/16/20 11:00 40 111/71 Mechanical Ventilator 45 07/16/20 10:45 109 26 111/70 (84) 100 07/16/20 10:30 110 27 122/70 (87) 97 07/16/20 10:15 109 29 115/71 (86) 99 07/16/20 10:00 101 28 115/74 (88) 100 07/16/20 10:00 38 115/71 Mechanical Ventilator 45 07/16/20 10:00 38 115/71 Mechanical Ventilator 45 Intake and Output 07/16/20 07/17/20 19:00 07:00 Intake Total 1216 ml 1080 ml Output Total 1725 ml 645 ml Balance -509 ml 435 ml Free Water 100 ml 60 ml IV Total 336 ml 360 ml Tube Feeding 660 ml 660 ml Other 120 ml Output Urine Total 1725 ml 645 ml # Bowel Movements 2 Laboratory Tests 07/17/20 03:50: White Blood Count 11.1H, Red Blood Count 3.45L, Hemoglobin 9.6L, Hematocrit 31.8L, Mean Corpuscular Volume 92, Mean Corpuscular Hemoglobin 27.7, Mean Corpuscular Hemoglobin Concent 30.1L, Red Cell Distribution Width 17.0H, Platelet Count 362, Mean Platelet Volume 7.3, Neutrophils (%) (Auto) 61.4, Lymphocytes (%) (Auto) 23.7, Monocytes (%) (Auto) 7.1, Eosinophils (%) (Auto) 6.9H, Basophils (%) (Auto) 1.0, Sodium Level 138, Potassium Level 3.3L, Chloride Level 94L, Carbon Dioxide Level 31, Anion Gap 13, Blood Urea Nitrogen 22H, Creatinine 0.6, Estimat Glomerular Filtration Rate > 60, Glucose Level 130H, Calcium Level 9.6, Phosphorus Level 3.7, Magnesium Level 1.8, Total Bilirubin 1.1H, Direct Bilirubin 0.2, Aspartate Amino Transf (AST/SGOT) 41H, Alanine Aminotransferase (ALT/SGPT) 17, Alkaline Phosphatase 72, Total Protein 8.2, Albumin 2.3L, Globulin 5.9, Albumin/Globulin Ratio 0.4L Height (Feet): 5 Height (Inches): 6.00 Weight (Pounds): 239 General Appearance: lethargic EENT: normal ENT inspection Neck: normal alignment Cardiovascular: normal peripheral pulses, normal rate, regular rhythm Respiratory/Chest: chest wall non-tender, lungs clear, normal breath sounds Abdomen: normal bowel sounds, non tender, soft Extremities: normal inspection Edema: no edema noted Arm (L), no edema noted Arm (R), no edema noted Leg (L), no edema noted Leg (R), no edema noted Pedal (L), no edema noted Pedal (R), no edema noted Generalized Neurologic: motor weakness Skin: normal pigmentation, warm/dry Assessment/Plan Problem List: (1) Hypoxia ICD Codes: R09.02 - Hypoxemia SNOMED: 147110157 (2) Respiratory failure ICD Codes: J96.90 - Respiratory failure, unspecified, unspecified whether with hypoxia or hypercapnia SNOMED: 107677447 (3) Respiratory distress ICD Codes: R06.03 - Acute respiratory distress; J12.82 - Pneumonia due to coronavirus disease 2019 SNOMED: 905316533 (4) Pneumonia due to COVID-19 virus ICD Codes: U07.1 - COVID-19; J12.82 - Pneumonia due to coronavirus disease 2019 SNOMED: 586126598708893046 Status: unchanged Assessment/Plan: vent abx id pulm f/u cbc bmp am Tank Del Cid DO Jul 17, 2020 09:58
--- NOTE | 2020-07-17 10:00 | NUR ---
NURSE NOTES: AM meds were administered. Oral care was done. Pt was repositioned for comfort. Tolerating NGT feeding at goal rate with zero residuals. Afebrile and sedated while on Fentanyl and Versed drips.
--- NOTE | 2020-07-17 10:49 | Infectious Diseases Prog Note ---
Assessment/Plan Assessment/Plan antibiotics : none A 1. covid 19 pneumonia s/p remdesivir s/p solumedrol 2. respiratory failure s/p tracheostomy 3. serratia pneumonia s/p rx P 1. continue off antibiotics 2. continue isolation Subjective ROS Limited/Unobtainable: Yes Allergies: Coded Allergies: No Known Allergies (Unverified , 05/28/20) Objective Last 24 Hour Vital Signs Date Time Temp Pulse Resp B/P (MAP) Pulse Ox O2 Delivery O2 Flow Rate FiO2 07/17/20 10:00 129 29 107/67 (80) 78 07/17/20 09:30 119 32 102/64 (77) 82 07/17/20 09:00 103 24 94/65 (75) 89 07/17/20 08:30 103 24 105/62 (76) 96 07/17/20 08:00 99.0 103 24 89/55 (66) 95 07/17/20 08:00 101 07/17/20 08:00 Mechanical Ventilator Mechanical Ventilator 07/17/20 08:00 40 07/17/20 07:05 96 30 60 07/17/20 07:00 28 90/58 Endotracheal Tube 40 07/17/20 07:00 28 90/58 Endotracheal Tube 40 07/17/20 07:00 104 24 90/58 (69) 98 07/17/20 06:30 110 21 07/17/20 06:30 112 26 92/71 (78) 95 07/17/20 06:00 32 103/73 Endotracheal Tube 40 07/17/20 06:00 32 103/73 Endotracheal Tube 40 07/17/20 06:00 130 34 104/65 (78) 69 07/17/20 05:30 108 36 110/81 (91) 98 07/17/20 05:16 97 37 60 07/17/20 05:00 28 106/70 Endotracheal Tube 40 07/17/20 05:00 28 106/70 Endotracheal Tube 40 07/17/20 05:00 103 24 103/66 (78) 100 07/17/20 04:30 105 28 105/65 (78) 100 07/17/20 04:00 60 07/17/20 04:00 Mechanical Ventilator Mechanical Ventilator 07/17/20 04:00 104 07/17/20 04:00 28 103/67 Endotracheal Tube 60 07/17/20 04:00 28 103/67 Endotracheal Tube 60 07/17/20 04:00 98.9 107 24 103/67 (79) 100 07/17/20 03:15 116 33 60 07/17/20 03:00 116 28 107/79 (88) 98 07/17/20 03:00 32 107/79 Endotracheal Tube 60 07/17/20 03:00 32 107/79 Endotracheal Tube 60 07/17/20 02:30 125 31 114/64 (81) 75 07/17/20 02:00 101 29 98/67 (77) 100 07/17/20 02:00 33 98/67 Endotracheal Tube 60 07/17/20 02:00 33 98/67 Endotracheal Tube 60 07/17/20 01:30 29 101/61 40 07/17/20 01:28 29 101/61 Endotracheal Tube 40 07/17/20 01:26 99 23 40 07/17/20 01:00 31 101/61 Endotracheal Tube 40 07/17/20 01:00 31 101/61 Endotracheal Tube 40 07/17/20 01:00 110 39 115/69 (84) 96 07/17/20 00:30 101 27 101/65 (77) 98 07/17/20 00:00 98.9 97 20 96/73 (81) 100 07/17/20 00:00 28 99/66 Endotracheal Tube 40 07/17/20 00:00 28 99/66 Endotracheal Tube 40 07/17/20 00:00 40 07/17/20 00:00 108 07/17/20 00:00 Mechanical Ventilator Mechanical Ventilator 07/16/20 23:32 97 22 40 07/16/20 23:30 102 25 99/61 (74) 99 07/16/20 23:00 100 25 100/65 (77) 100 07/16/20 23:00 27 96/63 Endotracheal Tube 40 07/16/20 23:00 27 96/63 Mechanical Ventilator 40 07/16/20 22:00 30 103/66 Endotracheal Tube 40 07/16/20 22:00 30 103/66 Endotracheal Tube 40 07/16/20 22:00 115 38 106/71 (83) 88 07/16/20 21:39 103 26 40 07/16/20 21:00 29 95/63 Endotracheal Tube 40 07/16/20 21:00 29 95/63 Endotracheal Tube 40 07/16/20 21:00 104 28 97/61 (73) 100 07/16/20 20:00 99.0 99 25 93/71 (78) 99 07/16/20 20:00 Mechanical Ventilator Mechanical Ventilator 07/16/20 20:00 32 105/66 Endotracheal Tube 40 07/16/20 20:00 32 105/66 Endotracheal Tube 40 07/16/20 20:00 106 07/16/20 19:25 94 23 40 07/16/20 19:00 112 28 123/85 (98) 100 07/16/20 19:00 18 123/85 Mechanical Ventilator 40 07/16/20 19:00 18 123/85 Mechanical Ventilator 40 07/16/20 18:30 91 24 106/71 (83) 100 07/16/20 18:00 94 27 110/78 (89) 98 07/16/20 18:00 20 106/73 Mechanical Ventilator 40 07/16/20 18:00 20 106/73 Mechanical Ventilator 40 07/16/20 18:00 40 07/16/20 17:20 40 07/16/20 17:00 96 29 109/67 (81) 100 07/16/20 17:00 18 109/67 Mechanical Ventilator 40 07/16/20 17:00 18 109/67 Mechanical Ventilator 40 07/16/20 16:30 91 25 90/57 (68) 100 07/16/20 16:00 99.0 92 21 96/57 (70) 100 07/16/20 16:00 Mechanical Ventilator Mechanical Ventilator 07/16/20 16:00 45 07/16/20 16:00 92 07/16/20 16:00 19 111/68 Mechanical Ventilator 45 07/16/20 16:00 19 111/68 Mechanical Ventilator 45 07/16/20 15:49 91 24 45 07/16/20 15:30 18 93/64 Mechanical Ventilator 45 07/16/20 15:00 22 93/64 Mechanical Ventilator 45 07/16/20 15:00 22 93/64 Mechanical Ventilator 45 07/16/20 15:00 100 28 103/60 (74) 100 07/16/20 14:00 29 114/58 Mechanical Ventilator 29 07/16/20 14:00 29 114/58 Mechanical Ventilator 45 07/16/20 14:00 109 30 106/72 (83) 96 07/16/20 13:30 101 24 105/68 (80) 100 07/16/20 13:00 104 27 111/69 (83) 100 07/16/20 13:00 25 105/65 Mechanical Ventilator 45 07/16/20 13:00 25 105/65 Mechanical Ventilator 45 07/16/20 12:30 108 31 105/66 (79) 98 07/16/20 12:15 101 22 113/72 (86) 100 07/16/20 12:00 102 07/16/20 12:00 28 113/72 Mechanical Ventilator 45 07/16/20 12:00 28 113/72 Mechanical Ventilator 45 07/16/20 12:00 Mechanical Ventilator Mechanical Ventilator 07/16/20 12:00 99.8 102 22 105/72 (83) 100 07/16/20 11:45 107 23 105/65 (78) 100 07/16/20 11:30 106 24 108/66 (80) 100 07/16/20 11:26 112 33 45 07/16/20 11:15 114 25 111/71 (84) 100 07/16/20 11:00 109 23 115/71 (86) 99 07/16/20 11:00 40 111/71 Mechanical Ventilator 45 07/16/20 11:00 40 111/71 Mechanical Ventilator 45 Height (Feet): 5 Height (Inches): 6.00 Weight (Pounds): 239 HEENT: status post trach Laboratory Tests Test 07/17/20 03:50 White Blood Count 11.1 K/UL (4.8-10.8) H Red Blood Count 3.45 M/UL (4.20-5.40) L Hemoglobin 9.6 G/DL (12.0-16.0) L Hematocrit 31.8 % (37.0-47.0) L Mean Corpuscular Volume 92 FL (80-99) Mean Corpuscular Hemoglobin 27.7 PG (27.0-31.0) Mean Corpuscular Hemoglobin Concent 30.1 G/DL (32.0-36.0) L Red Cell Distribution Width 17.0 % (11.6-14.8) H Platelet Count 362 K/UL (150-450) Mean Platelet Volume 7.3 FL (6.5-10.1) Neutrophils (%) (Auto) 61.4 % (45.0-75.0) Lymphocytes (%) (Auto) 23.7 % (20.0-45.0) Monocytes (%) (Auto) 7.1 % (1.0-10.0) Eosinophils (%) (Auto) 6.9 % (0.0-3.0) H Basophils (%) (Auto) 1.0 % (0.0-2.0) Sodium Level 138 MMOL/L (136-145) Potassium Level 3.3 MMOL/L (3.5-5.1) L Chloride Level 94 MMOL/L (98-107) L Carbon Dioxide Level 31 MMOL/L (21-32) Anion Gap 13 mmol/L (5-15) Blood Urea Nitrogen 22 mg/dL (7-18) H Creatinine 0.6 MG/DL (0.55-1.30) Estimat Glomerular Filtration Rate > 60 mL/min (>60) Glucose Level 130 MG/DL (74-106) H Calcium Level 9.6 MG/DL (8.5-10.1) Phosphorus Level 3.7 MG/DL (2.5-4.9) Magnesium Level 1.8 MG/DL (1.8-2.4) Total Bilirubin 1.1 MG/DL (0.2-1.0) H Direct Bilirubin 0.2 MG/DL (0.0-0.3) Aspartate Amino Transf (AST/SGOT) 41 U/L (15-37) H Alanine Aminotransferase (ALT/SGPT) 17 U/L (12-78) Alkaline Phosphatase 72 U/L (46-116) Total Protein 8.2 G/DL (6.4-8.2) Albumin 2.3 G/DL (3.4-5.0) L Globulin 5.9 g/dL Albumin/Globulin Ratio 0.4 (1.0-2.7) L Current Medications Medications (Trade) Dose Ordered Sig/Zelda Route PRN Reason Start Time Stop Time Status Last Admin Dose Admin Acetaminophen (Tylenol) 650 mg Q4H PRN NG Temp >100.5 06/29/20 10:15 07/29/20 10:14 07/08/20 18:26 Acetaminophen (Tylenol) 650 mg Q6H PRN NG Mild Pain (Pain Scale 1-3) 06/29/20 10:15 07/29/20 10:14 Chlorhexidine Gluconate (Inna-Hex 2%) 1 applic DAILY@2000 TOPIC 05/30/20 20:00 08/28/20 19:59 07/16/20 20:26 Dextrose (Dextrose 50%) 25 ml Q30M PRN IV Hypoglycemia 06/05/20 10:45 09/03/20 10:44 Dextrose (Dextrose 50%) 50 ml Q30M PRN IV Hypoglycemia 06/05/20 10:45 09/03/20 10:44 Fentanyl Citrate 250 ml @ 10 mls/hr Q24H IV 07/16/20 04:00 07/18/20 03:59 07/17/20 01:30 Furosemide (Lasix) 40 mg DAILY IV 06/22/20 09:00 07/22/20 08:59 07/17/20 09:22 Guaifenesin/ Codeine Phosphate (Robitussin with codeine) 5 ml Q6H PRN NG For Cough 07/14/20 14:15 08/13/20 14:14 07/15/20 11:05 Lansoprazole (Prevacid) 30 mg DAILY GT 07/18/20 09:00 08/09/20 08:59 Midazolam HCl 200 ml @ 0 mls/hr Q24H PRN IV To Patient Comfort 07/10/20 12:00 07/17/20 11:59 07/17/20 01:28 Midodrine (Pro-Amatine) 10 mg Q8HR GT 06/30/20 14:00 09/12/20 13:59 07/17/20 05:21 Norepinephrine Bitartrate 250 ml @ 0 mls/hr Q24H PRN IV For hypotension 07/14/20 18:45 07/17/20 18:40 Quetiapine Fumarate (SEROqueL) 50 mg Q12HR GT 07/16/20 13:30 08/30/20 13:29 07/17/20 09:22 Vitamin D (Vitamin D) 5,000 unit DAILY GT 06/28/20 09:00 07/28/20 08:59 07/17/20 09:22 Fili Mcelroy MD Jul 17, 2020 10:49
--- NOTE | 2020-07-17 10:52 | Pulmonology Progress Note ---
Subjective ROS Limited/Unobtainable: Yes Interval Events: S/p tracheostomy 07/04/20 Constitutional: Reports: fever, other - T=100 HEENT: Repors: no symptoms Respiratory: Reports: no symptoms Cardiovascular: Reports: no symptoms Gastrointestinal/Abdominal: Reports: no symptoms Genitourinary: Reports: no symptoms Allergies: Coded Allergies: No Known Allergies (Unverified , 05/28/20) All Systems: reviewed and negative except above Objective Last 24 Hour Vital Signs Date Time Temp Pulse Resp B/P (MAP) Pulse Ox O2 Delivery O2 Flow Rate FiO2 07/17/20 10:00 129 29 107/67 (80) 78 07/17/20 09:30 119 32 102/64 (77) 82 07/17/20 09:00 103 24 94/65 (75) 89 07/17/20 08:30 103 24 105/62 (76) 96 07/17/20 08:00 99.0 103 24 89/55 (66) 95 07/17/20 08:00 101 07/17/20 08:00 Mechanical Ventilator Mechanical Ventilator 07/17/20 08:00 40 07/17/20 07:05 96 30 60 07/17/20 07:00 28 90/58 Endotracheal Tube 40 07/17/20 07:00 28 90/58 Endotracheal Tube 40 07/17/20 07:00 104 24 90/58 (69) 98 07/17/20 06:30 110 21 07/17/20 06:30 112 26 92/71 (78) 95 07/17/20 06:00 32 103/73 Endotracheal Tube 40 07/17/20 06:00 32 103/73 Endotracheal Tube 40 07/17/20 06:00 130 34 104/65 (78) 69 07/17/20 05:30 108 36 110/81 (91) 98 07/17/20 05:16 97 37 60 07/17/20 05:00 28 106/70 Endotracheal Tube 40 07/17/20 05:00 28 106/70 Endotracheal Tube 40 07/17/20 05:00 103 24 103/66 (78) 100 07/17/20 04:30 105 28 105/65 (78) 100 07/17/20 04:00 60 07/17/20 04:00 Mechanical Ventilator Mechanical Ventilator 07/17/20 04:00 104 07/17/20 04:00 28 103/67 Endotracheal Tube 60 07/17/20 04:00 28 103/67 Endotracheal Tube 60 07/17/20 04:00 98.9 107 24 103/67 (79) 100 07/17/20 03:15 116 33 60 07/17/20 03:00 116 28 107/79 (88) 98 07/17/20 03:00 32 107/79 Endotracheal Tube 60 07/17/20 03:00 32 107/79 Endotracheal Tube 60 07/17/20 02:30 125 31 114/64 (81) 75 07/17/20 02:00 101 29 98/67 (77) 100 07/17/20 02:00 33 98/67 Endotracheal Tube 60 07/17/20 02:00 33 98/67 Endotracheal Tube 60 07/17/20 01:30 29 101/61 40 07/17/20 01:28 29 101/61 Endotracheal Tube 40 07/17/20 01:26 99 23 40 07/17/20 01:00 31 101/61 Endotracheal Tube 40 07/17/20 01:00 31 101/61 Endotracheal Tube 40 07/17/20 01:00 110 39 115/69 (84) 96 07/17/20 00:30 101 27 101/65 (77) 98 07/17/20 00:00 98.9 97 20 96/73 (81) 100 07/17/20 00:00 28 99/66 Endotracheal Tube 40 07/17/20 00:00 28 99/66 Endotracheal Tube 40 07/17/20 00:00 40 07/17/20 00:00 108 07/17/20 00:00 Mechanical Ventilator Mechanical Ventilator 07/16/20 23:32 97 22 40 07/16/20 23:30 102 25 99/61 (74) 99 07/16/20 23:00 100 25 100/65 (77) 100 07/16/20 23:00 27 96/63 Endotracheal Tube 40 07/16/20 23:00 27 96/63 Mechanical Ventilator 40 07/16/20 22:00 30 103/66 Endotracheal Tube 40 07/16/20 22:00 30 103/66 Endotracheal Tube 40 07/16/20 22:00 115 38 106/71 (83) 88 07/16/20 21:39 103 26 40 07/16/20 21:00 29 95/63 Endotracheal Tube 40 07/16/20 21:00 29 95/63 Endotracheal Tube 40 07/16/20 21:00 104 28 97/61 (73) 100 07/16/20 20:00 99.0 99 25 93/71 (78) 99 07/16/20 20:00 Mechanical Ventilator Mechanical Ventilator 07/16/20 20:00 32 105/66 Endotracheal Tube 40 07/16/20 20:00 32 105/66 Endotracheal Tube 40 07/16/20 20:00 106 07/16/20 19:25 94 23 40 07/16/20 19:00 112 28 123/85 (98) 100 07/16/20 19:00 18 123/85 Mechanical Ventilator 40 07/16/20 19:00 18 123/85 Mechanical Ventilator 40 07/16/20 18:30 91 24 106/71 (83) 100 07/16/20 18:00 94 27 110/78 (89) 98 07/16/20 18:00 20 106/73 Mechanical Ventilator 40 07/16/20 18:00 20 106/73 Mechanical Ventilator 40 07/16/20 18:00 40 07/16/20 17:20 40 07/16/20 17:00 96 29 109/67 (81) 100 07/16/20 17:00 18 109/67 Mechanical Ventilator 40 07/16/20 17:00 18 109/67 Mechanical Ventilator 40 07/16/20 16:30 91 25 90/57 (68) 100 07/16/20 16:00 99.0 92 21 96/57 (70) 100 07/16/20 16:00 Mechanical Ventilator Mechanical Ventilator 07/16/20 16:00 45 07/16/20 16:00 92 07/16/20 16:00 19 111/68 Mechanical Ventilator 45 07/16/20 16:00 19 111/68 Mechanical Ventilator 45 07/16/20 15:49 91 24 45 07/16/20 15:30 18 93/64 Mechanical Ventilator 45 07/16/20 15:00 22 93/64 Mechanical Ventilator 45 07/16/20 15:00 22 93/64 Mechanical Ventilator 45 07/16/20 15:00 100 28 103/60 (74) 100 07/16/20 14:00 29 114/58 Mechanical Ventilator 29 07/16/20 14:00 29 114/58 Mechanical Ventilator 45 07/16/20 14:00 109 30 106/72 (83) 96 07/16/20 13:30 101 24 105/68 (80) 100 07/16/20 13:00 104 27 111/69 (83) 100 07/16/20 13:00 25 105/65 Mechanical Ventilator 45 07/16/20 13:00 25 105/65 Mechanical Ventilator 45 07/16/20 12:30 108 31 105/66 (79) 98 07/16/20 12:15 101 22 113/72 (86) 100 07/16/20 12:00 102 07/16/20 12:00 28 113/72 Mechanical Ventilator 45 07/16/20 12:00 28 113/72 Mechanical Ventilator 45 07/16/20 12:00 Mechanical Ventilator Mechanical Ventilator 07/16/20 12:00 99.8 102 22 105/72 (83) 100 07/16/20 11:45 107 23 105/65 (78) 100 07/16/20 11:30 106 24 108/66 (80) 100 07/16/20 11:26 112 33 45 07/16/20 11:15 114 25 111/71 (84) 100 07/16/20 11:00 109 23 115/71 (86) 99 07/16/20 11:00 40 111/71 Mechanical Ventilator 45 07/16/20 11:00 40 111/71 Mechanical Ventilator 45 Intake and Output 07/16/20 07/17/20 19:00 07:00 Intake Total 1216 ml 1080 ml Output Total 1725 ml 645 ml Balance -509 ml 435 ml Free Water 100 ml 60 ml IV Total 336 ml 360 ml Tube Feeding 660 ml 660 ml Other 120 ml Output Urine Total 1725 ml 645 ml # Bowel Movements 2 General Appearance: no acute distress HEENT: normocephalic, status post trach Respiratory: chest wall non-tender Cardiovascular: normal peripheral pulses Abdomen: normal bowel sounds Laboratory Tests 07/17/20 03:50: White Blood Count 11.1H, Red Blood Count 3.45L, Hemoglobin 9.6L, Hematocrit 31.8L, Mean Corpuscular Volume 92, Mean Corpuscular Hemoglobin 27.7, Mean Corpuscular Hemoglobin Concent 30.1L, Red Cell Distribution Width 17.0H, Platelet Count 362, Mean Platelet Volume 7.3, Neutrophils (%) (Auto) 61.4, Lymphocytes (%) (Auto) 23.7, Monocytes (%) (Auto) 7.1, Eosinophils (%) (Auto) 6.9H, Basophils (%) (Auto) 1.0, Sodium Level 138, Potassium Level 3.3L, Chloride Level 94L, Carbon Dioxide Level 31, Anion Gap 13, Blood Urea Nitrogen 22H, Creatinine 0.6, Estimat Glomerular Filtration Rate > 60, Glucose Level 130H, Calcium Level 9.6, Phosphorus Level 3.7, Magnesium Level 1.8, Total Bilirubin 1.1H, Direct Bilirubin 0.2, Aspartate Amino Transf (AST/SGOT) 41H, Alanine Aminotransferase (ALT/SGPT) 17, Alkaline Phosphatase 72, Total Protein 8.2, Albumin 2.3L, Globulin 5.9, Albumin/Globulin Ratio 0.4L Current Medications Medications (Trade) Dose Ordered Sig/Zelda Route PRN Reason Start Time Stop Time Status Last Admin Dose Admin Acetaminophen (Tylenol) 650 mg Q4H PRN NG Temp >100.5 06/29/20 10:15 07/29/20 10:14 07/08/20 18:26 Acetaminophen (Tylenol) 650 mg Q6H PRN NG Mild Pain (Pain Scale 1-3) 06/29/20 10:15 07/29/20 10:14 Chlorhexidine Gluconate (Inna-Hex 2%) 1 applic DAILY@2000 TOPIC 05/30/20 20:00 08/28/20 19:59 07/16/20 20:26 Dextrose (Dextrose 50%) 25 ml Q30M PRN IV Hypoglycemia 06/05/20 10:45 09/03/20 10:44 Dextrose (Dextrose 50%) 50 ml Q30M PRN IV Hypoglycemia 06/05/20 10:45 09/03/20 10:44 Fentanyl Citrate 250 ml @ 10 mls/hr Q24H IV 07/16/20 04:00 07/18/20 03:59 07/17/20 01:30 Furosemide (Lasix) 40 mg DAILY IV 06/22/20 09:00 07/22/20 08:59 07/17/20 09:22 Guaifenesin/ Codeine Phosphate (Robitussin with codeine) 5 ml Q6H PRN NG For Cough 07/14/20 14:15 08/13/20 14:14 07/15/20 11:05 Lansoprazole (Prevacid) 30 mg DAILY GT 2/25/21 09:00 08/09/20 08:59 Midazolam HCl 200 ml @ 0 mls/hr Q24H PRN IV To Patient Comfort 07/10/20 12:00 07/17/20 11:59 07/17/20 01:28 Midodrine (Pro-Amatine) 10 mg Q8HR GT 06/30/20 14:00 09/12/20 13:59 07/17/20 05:21 Norepinephrine Bitartrate 250 ml @ 0 mls/hr Q24H PRN IV For hypotension 07/14/20 18:45 07/17/20 18:40 Quetiapine Fumarate (SEROqueL) 50 mg Q12HR GT 07/16/20 13:30 08/30/20 13:29 07/17/20 09:22 Vitamin D (Vitamin D) 5,000 unit DAILY GT 06/28/20 09:00 07/28/20 08:59 07/17/20 09:22 Assessment/Plan Assessment/Plan 1. COVID-19 pneumonia -Intubated 05/28/20 - We will continue broad-spectrum antibiotics. -s/p solumedrol, Rocephin -Continue PEEP 6 ->7 - Peak airway pressures high; 38 - FiO2 100% -> 90 ->80->60 ->40 ->80 ->100 ->70 ->60 -> 50 ->45 - >40%; PEEP 7 ->5 -will continue OGT feeding 2. Hyponatremia -Per primary MD 3. Elevated inflammatory markers - has high D dimer; Lovenox re-started 4. Decreased PEEP Continue weaning efforts S/p trach Reported cuff leak per Rn/RT Discussed trach change with surgery Hold off for now... however noted loss of volumes on vent and high FiO2 requ irements Off IV fluids Begin dc planning to subacute; will need to wean down O2 further prior to transfer Will wean off IV sedation; started Seroquel Needs PEG Javier Nava MD Jul 17, 2020 10:52
--- NOTE | 2020-07-17 11:38 | NUR ---
NURSE NOTES: New Versed bag was started to replace previous empty bag, continuing same rate to maintain -2 light sedation/RASS score.
--- NOTE | 2020-07-17 12:02 | Nephrology Progress Note ---
Assessment/Plan Problem List: (1) DEVENDRA (acute kidney injury) (2) Morbid obesity (3) Diabetes mellitus out of control (4) Pneumonia due to COVID-19 virus (5) Respiratory failure Assessment Acute renal failure Obstructive uropathy, clogged Lennon Respiratory failure COVID-19 pneumonia Morbid obesity Plan July 17: Remains full code. Trach to vent. FiO2 40%. Labs reviewed. Low potassium addressed. Continue per consultants. July 16: Status quo. FiO2 45%. Discussed with RN. Continue to taper her mind altering medications and sedatives. Stable from renal standpoint of view. Abnormal electrolytes addressed. July 15: Full code. FiO2 50%. Intubated on ventilator. No labs drawn today. Continue per consultants. July 14: Status quo. FiO2 50%. Labs reviewed. Renal parameters stable. Continue per current treatment plan and consultants. Medication list reviewed. July 13: FiO2 60% unchanged. Labs reviewed. Renal parameters stable. Medication list reviewed. Continue per consultants. July 12: Full code. Labs reviewed. Normal electrolytes addressed. Continue per pulmonary. Medication list reviewed. July 11: Remains full code. On ventilator. FiO2 down to 65%. Renal parameters stable. Low magnesium addressed. Continue her current management. July 10: Full code. On ventilator. FiO2 70%. Hemoglobin mid sevens. Renal parameters stable. Continue per consultants. July 09: Labs reviewed. Renal parameters stable. FiO2 80% unchanged. Continue per pulmonary. July 08: Labs reviewed. Renal parameters and electrolytes stable. ABG suggestive of high PCO2. At this time patient is on FiO2 of 80%. Continue per pulmonary. Continue to monitor renal parameters. July 07: No CHEM panel drawn today. More potassium given. Continue to monitor renal parameters. Continue per consultants. Discussed with RAKEL Veras. July 06: Low potassium addressed. Albumin bolus for low BP given. Patient remains full code. Continue to monitor electrolytes and renal parameters. Continue per consultants. Hemoglobin low today, transfusion per subject scientific research. July 05: Trach to vent. FiO2 80%. Renal parameters stable. PCO2 remains high at 44. Continue to monitor renal parameters. July 04: Patient now trach. Full code. Labs reviewed. Renal parameters stable. Low magnesium addressed. July 03: Intubated. Full code. Labs reviewed. Abnormal electrolytes addressed. Continue per consultants. Overall status unchanged. July 02: Remains intubated. Remains full code. Remains on FiO2 of 70%. Labs reviewed. Abnormal electrolytes addressed. Continue per pulmonary. July 01: Remains on 70% FiO2. Full code. Intubated on ventilator. Retaining CO2. Discussed with RN. Will do ABG today. Albumin bolus given. 1 dose of Diamox given. June 30: Status quo. Labs reviewed. Abnormal electrolytes addressed. Remains full code. Remains on ventilator. Magnesium sulfate 4 gram IVPB given. June 29: Full code. Intubated on ventilator. Labs reviewed. Stable from renal standpoint of view. Continue per consultants. June 28: Remains full code. Remains intubated on ventilator. Labs reviewed. Vitamin D supplement ordered. Continue to monitor renal parameters. Continue per consultants. June 27: Remains full code. Intubated on ventilator. Labs reviewed. Abnormal electrolyte addressed. Continue to monitor renal parameters and electrolytes. Continue per consultants. June 26: Labs reviewed. Remains full code. Remains intubated. Back on NGT feeding. Continue to monitor renal parameters. June 25: Labs reviewed. Renal parameters stable. Remains full code. Due to positional status patient could not be fed via NG tube. Starting TPN? Is being entertained. Continue per consultants. June 24: Labs reviewed. Renal parameters stable. Remains full code. Suzanne ins intubated on ventilator. Continue per consultants. June 23: Labs reviewed. Renal parameters stable. Discussed with RN. Abnormal electrolyte addressed. Remains full code. Remains on ventilator. Continue per consultants. June 22: Labs reviewed. Low potassium addressed. Discussed with RAKLE Moran. Patient full code. Remains on ventilator. Continue to monitor renal parameters. June 21. Labs reviewed. Abnormal electrolyte addressed. Full code. Remains on ventilator. Medication list reviewed. Continue per pulmonary management. DC IV fluid, resume Lasix daily, check chest x-ray. June 20: Labs reviewed. Abnormal electrolytes. Patient remains full code. Continue per consultants. Noted and addressed June 19: Labs reviewed. Abnormal electrolytes noted and addressed. Remains intubated on ventilator. Remains full code. June 18: Labs reviewed. Remains intubated on ventilator. Full code. Abnormal electrolyte addressed. Continue as is. June 17: Labs reviewed. Abnormal electrolytes addressed. Patient remains full code and intubated on ventilator. Continue per consultants. Renal parameters are within normal limits. June 16: Labs reviewed. Potassium chloride replaced. Remains full code. Remains intubated on ventilator. Continue per consultants. Continue to monitor renal parameters. June 15: Labs reviewed. Serum creatinine 1. Stable from renal standpoint to view. Continue per consultants. June 14: Labs reviewed. Full code. Serum creatinine of 3.5 down to 1.4. Low potassium addressed. Continue per current treatment plan. Continue to monitor renal parameters. Midodrine started. Albumin bolus given. Previously: DC Lasix drip Increase Protonix dose Monitor renal parameters, electrolytes Per orders Subjective ROS Limited/Unobtainable: Yes Objective Objective Last 24 Hour Vital Signs Date Time Temp Pulse Resp B/P (MAP) Pulse Ox O2 Delivery O2 Flow Rate FiO2 07/17/20 11:00 24 98/59 Mechanical Ventilator 40 07/17/20 10:45 98 32 60 07/17/20 10:00 129 29 107/67 (80) 78 07/17/20 10:00 27 99/50 Mechanical Ventilator 40 07/17/20 09:30 119 32 102/64 (77) 82 07/17/20 09:00 103 24 94/65 (75) 89 07/17/20 09:00 25 92/61 Mechanical Ventilator 40 07/17/20 08:30 103 24 105/62 (76) 96 07/17/20 08:00 99.0 103 24 89/55 (66) 95 07/17/20 08:00 101 07/17/20 08:00 Mechanical Ventilator Mechanical Ventilator 07/17/20 08:00 40 07/17/20 08:00 24 96/62 Mechanical Ventilator 40 07/17/20 07:05 96 30 60 07/17/20 07:00 28 90/58 Endotracheal Tube 40 07/17/20 07:00 28 90/58 Endotracheal Tube 40 07/17/20 07:00 104 24 90/58 (69) 98 07/17/20 06:30 110 21 07/17/20 06:30 112 26 92/71 (78) 95 07/17/20 06:00 32 103/73 Endotracheal Tube 40 07/17/20 06:00 32 103/73 Endotracheal Tube 40 07/17/20 06:00 130 34 104/65 (78) 69 07/17/20 05:30 108 36 110/81 (91) 98 07/17/20 05:16 97 37 60 07/17/20 05:00 28 106/70 Endotracheal Tube 40 07/17/20 05:00 28 106/70 Endotracheal Tube 40 07/17/20 05:00 103 24 103/66 (78) 100 07/17/20 04:30 105 28 105/65 (78) 100 07/17/20 04:00 60 07/17/20 04:00 Mechanical Ventilator Mechanical Ventilator 07/17/20 04:00 104 07/17/20 04:00 28 103/67 Endotracheal Tube 60 07/17/20 04:00 28 103/67 Endotracheal Tube 60 07/17/20 04:00 98.9 107 24 103/67 (79) 100 07/17/20 03:15 116 33 60 07/17/20 03:00 116 28 107/79 (88) 98 07/17/20 03:00 32 107/79 Endotracheal Tube 60 07/17/20 03:00 32 107/79 Endotracheal Tube 60 07/17/20 02:30 125 31 114/64 (81) 75 07/17/20 02:00 101 29 98/67 (77) 100 07/17/20 02:00 33 98/67 Endotracheal Tube 60 07/17/20 02:00 33 98/67 Endotracheal Tube 60 07/17/20 01:30 29 101/61 40 07/17/20 01:28 29 101/61 Endotracheal Tube 40 07/17/20 01:26 99 23 40 07/17/20 01:00 31 101/61 Endotracheal Tube 40 07/17/20 01:00 31 101/61 Endotracheal Tube 40 07/17/20 01:00 110 39 115/69 (84) 96 07/17/20 00:30 101 27 101/65 (77) 98 07/17/20 00:00 98.9 97 20 96/73 (81) 100 07/17/20 00:00 28 99/66 Endotracheal Tube 40 07/17/20 00:00 28 99/66 Endotracheal Tube 40 07/17/20 00:00 40 07/17/20 00:00 108 07/17/20 00:00 Mechanical Ventilator Mechanical Ventilator 07/16/20 23:32 97 22 40 07/16/20 23:30 102 25 99/61 (74) 99 07/16/20 23:00 100 25 100/65 (77) 100 07/16/20 23:00 27 96/63 Endotracheal Tube 40 07/16/20 23:00 27 96/63 Mechanical Ventilator 40 07/16/20 22:00 30 103/66 Endotracheal Tube 40 07/16/20 22:00 30 103/66 Endotracheal Tube 40 07/16/20 22:00 115 38 106/71 (83) 88 07/16/20 21:39 103 26 40 07/16/20 21:00 29 95/63 Endotracheal Tube 40 07/16/20 21:00 29 95/63 Endotracheal Tube 40 07/16/20 21:00 104 28 97/61 (73) 100 07/16/20 20:00 99.0 99 25 93/71 (78) 99 07/16/20 20:00 Mechanical Ventilator Mechanical Ventilator 07/16/20 20:00 32 105/66 Endotracheal Tube 40 07/16/20 20:00 32 105/66 Endotracheal Tube 40 07/16/20 20:00 106 07/16/20 19:25 94 23 40 07/16/20 19:00 112 28 123/85 (98) 100 07/16/20 19:00 18 123/85 Mechanical Ventilator 40 07/16/20 19:00 18 123/85 Mechanical Ventilator 40 07/16/20 18:30 91 24 106/71 (83) 100 07/16/20 18:00 94 27 110/78 (89) 98 07/16/20 18:00 20 106/73 Mechanical Ventilator 40 07/16/20 18:00 20 106/73 Mechanical Ventilator 40 07/16/20 18:00 40 07/16/20 17:20 40 07/16/20 17:00 96 29 109/67 (81) 100 07/16/20 17:00 18 109/67 Mechanical Ventilator 40 07/16/20 17:00 18 109/67 Mechanical Ventilator 40 07/16/20 16:30 91 25 90/57 (68) 100 07/16/20 16:00 99.0 92 21 96/57 (70) 100 07/16/20 16:00 Mechanical Ventilator Mechanical Ventilator 07/16/20 16:00 45 07/16/20 16:00 92 07/16/20 16:00 19 111/68 Mechanical Ventilator 45 07/16/20 16:00 19 111/68 Mechanical Ventilator 45 07/16/20 15:49 91 24 45 07/16/20 15:30 18 93/64 Mechanical Ventilator 45 07/16/20 15:00 22 93/64 Mechanical Ventilator 45 07/16/20 15:00 22 93/64 Mechanical Ventilator 45 07/16/20 15:00 100 28 103/60 (74) 100 07/16/20 14:00 29 114/58 Mechanical Ventilator 29 07/16/20 14:00 29 114/58 Mechanical Ventilator 45 07/16/20 14:00 109 30 106/72 (83) 96 07/16/20 13:30 101 24 105/68 (80) 100 07/16/20 13:00 104 27 111/69 (83) 100 07/16/20 13:00 25 105/65 Mechanical Ventilator 45 07/16/20 13:00 25 105/65 Mechanical Ventilator 45 07/16/20 12:30 108 31 105/66 (79) 98 07/16/20 12:15 101 22 113/72 (86) 100 07/16/20 12:00 102 07/16/20 12:00 28 113/72 Mechanical Ventilator 45 07/16/20 12:00 28 113/72 Mechanical Ventilator 45 07/16/20 12:00 Mechanical Ventilator Mechanical Ventilator 07/16/20 12:00 99.8 102 22 105/72 (83) 100 Intake and Output 07/16/20 07/17/20 19:00 07:00 Intake Total 1216 ml 1080 ml Output Total 1725 ml 645 ml Balance -509 ml 435 ml Free Water 100 ml 60 ml IV Total 336 ml 360 ml Tube Feeding 660 ml 660 ml Other 120 ml Output Urine Total 1725 ml 645 ml # Bowel Movements 2 Laboratory Tests 07/17/20 03:50: White Blood Count 11.1H, Red Blood Count 3.45L, Hemoglobin 9.6L, Hematocrit 31.8L, Mean Corpuscular Volume 92, Mean Corpuscular Hemoglobin 27.7, Mean Corpuscular Hemoglobin Concent 30.1L, Red Cell Distribution Width 17.0H, Platelet Count 362, Mean Platelet Volume 7.3, Neutrophils (%) (Auto) 61.4, Lymphocytes (%) (Auto) 23.7, Monocytes (%) (Auto) 7.1, Eosinophils (%) (Auto) 6.9H, Basophils (%) (Auto) 1.0, Sodium Level 138, Potassium Level 3.3L, Chloride Level 94L, Carbon Dioxide Level 31, Anion Gap 13, Blood Urea Nitrogen 22H, Creatinine 0.6, Estimat Glomerular Filtration Rate > 60, Glucose Level 130H, Calcium Level 9.6, Phosphorus Level 3.7, Magnesium Level 1.8, Total Bilirubin 1.1H, Direct Bilirubin 0.2, Aspartate Amino Transf (AST/SGOT) 41H, Alanine Aminotransferase (ALT/SGPT) 17, Alkaline Phosphatase 72, Total Protein 8.2, Albumin 2.3L, Globulin 5.9, Albumin/Globulin Ratio 0.4L Height (Feet): 5 Height (Inches): 6.00 Weight (Pounds): 239 General Appearance: no apparent distress EENT: other - Trach to vent Cardiovascular: tachycardia Respiratory/Chest: decreased breath sounds Abdomen: distended Rigo Tyler MD Jul 17, 2020 12:02
--- NOTE | 2020-07-17 12:23 | Cardiac Electrophysiology PN ---
Assessment/Plan Assessment/Plan 1. Respiratory failure due to COVID-19 pneumonia. Patient already is on tracheostomy and is on the ventilator 40% FiO2. Echo EF 60% 2. Right lower extremity DVT. Patient is to be followed up by Hematology. May need IVC filter placement. 3. Hypotension, on midodrine 10 mg 3 times daily. Patient is also on Lasix 40 IV daily, but we will await the result of the echocardiogram. Patient also has Levophed ordered in case if blood pressure drops. 4. Dysphagia. Likely will need PEG DW RN Subjective Subjective In ICU on the Vent via Trach 45% Fio2 in SR. No events Objective Last 24 Hour Vital Signs Date Time Temp Pulse Resp B/P (MAP) Pulse Ox O2 Delivery O2 Flow Rate FiO2 07/17/20 12:00 110 07/17/20 11:00 24 98/59 Mechanical Ventilator 40 07/17/20 10:45 98 32 60 07/17/20 10:00 129 29 107/67 (80) 78 07/17/20 10:00 27 99/50 Mechanical Ventilator 40 07/17/20 09:30 119 32 102/64 (77) 82 07/17/20 09:00 103 24 94/65 (75) 89 07/17/20 09:00 25 92/61 Mechanical Ventilator 40 07/17/20 08:30 103 24 105/62 (76) 96 07/17/20 08:00 99.0 103 24 89/55 (66) 95 07/17/20 08:00 101 07/17/20 08:00 Mechanical Ventilator Mechanical Ventilator 07/17/20 08:00 40 07/17/20 08:00 24 96/62 Mechanical Ventilator 40 07/17/20 07:05 96 30 60 07/17/20 07:00 28 90/58 Endotracheal Tube 40 07/17/20 07:00 28 90/58 Endotracheal Tube 40 07/17/20 07:00 104 24 90/58 (69) 98 07/17/20 06:30 110 21 07/17/20 06:30 112 26 92/71 (78) 95 07/17/20 06:00 32 103/73 Endotracheal Tube 40 07/17/20 06:00 32 103/73 Endotracheal Tube 40 07/17/20 06:00 130 34 104/65 (78) 69 07/17/20 05:30 108 36 110/81 (91) 98 07/17/20 05:16 97 37 60 07/17/20 05:00 28 106/70 Endotracheal Tube 40 07/17/20 05:00 28 106/70 Endotracheal Tube 40 07/17/20 05:00 103 24 103/66 (78) 100 07/17/20 04:30 105 28 105/65 (78) 100 07/17/20 04:00 60 07/17/20 04:00 Mechanical Ventilator Mechanical Ventilator 07/17/20 04:00 104 07/17/20 04:00 28 103/67 Endotracheal Tube 60 07/17/20 04:00 28 103/67 Endotracheal Tube 60 07/17/20 04:00 98.9 107 24 103/67 (79) 100 07/17/20 03:15 116 33 60 07/17/20 03:00 116 28 107/79 (88) 98 07/17/20 03:00 32 107/79 Endotracheal Tube 60 07/17/20 03:00 32 107/79 Endotracheal Tube 60 07/17/20 02:30 125 31 114/64 (81) 75 07/17/20 02:00 101 29 98/67 (77) 100 07/17/20 02:00 33 98/67 Endotracheal Tube 60 07/17/20 02:00 33 98/67 Endotracheal Tube 60 07/17/20 01:30 29 101/61 40 07/17/20 01:28 29 101/61 Endotracheal Tube 40 07/17/20 01:26 99 23 40 07/17/20 01:00 31 101/61 Endotracheal Tube 40 07/17/20 01:00 31 101/61 Endotracheal Tube 40 07/17/20 01:00 110 39 115/69 (84) 96 07/17/20 00:30 101 27 101/65 (77) 98 07/17/20 00:00 98.9 97 20 96/73 (81) 100 07/17/20 00:00 28 99/66 Endotracheal Tube 40 07/17/20 00:00 28 99/66 Endotracheal Tube 40 07/17/20 00:00 40 07/17/20 00:00 108 07/17/20 00:00 Mechanical Ventilator Mechanical Ventilator 07/16/20 23:32 97 22 40 07/16/20 23:30 102 25 99/61 (74) 99 07/16/20 23:00 100 25 100/65 (77) 100 07/16/20 23:00 27 96/63 Endotracheal Tube 40 07/16/20 23:00 27 96/63 Mechanical Ventilator 40 07/16/20 22:00 30 103/66 Endotracheal Tube 40 07/16/20 22:00 30 103/66 Endotracheal Tube 40 07/16/20 22:00 115 38 106/71 (83) 88 07/16/20 21:39 103 26 40 07/16/20 21:00 29 95/63 Endotracheal Tube 40 07/16/20 21:00 29 95/63 Endotracheal Tube 40 07/16/20 21:00 104 28 97/61 (73) 100 07/16/20 20:00 99.0 99 25 93/71 (78) 99 07/16/20 20:00 Mechanical Ventilator Mechanical Ventilator 07/16/20 20:00 32 105/66 Endotracheal Tube 40 07/16/20 20:00 32 105/66 Endotracheal Tube 40 07/16/20 20:00 106 07/16/20 19:25 94 23 40 07/16/20 19:00 112 28 123/85 (98) 100 07/16/20 19:00 18 123/85 Mechanical Ventilator 40 07/16/20 19:00 18 123/85 Mechanical Ventilator 40 07/16/20 18:30 91 24 106/71 (83) 100 07/16/20 18:00 94 27 110/78 (89) 98 07/16/20 18:00 20 106/73 Mechanical Ventilator 40 07/16/20 18:00 20 106/73 Mechanical Ventilator 40 07/16/20 18:00 40 07/16/20 17:20 40 07/16/20 17:00 96 29 109/67 (81) 100 07/16/20 17:00 18 109/67 Mechanical Ventilator 40 07/16/20 17:00 18 109/67 Mechanical Ventilator 40 07/16/20 16:30 91 25 90/57 (68) 100 07/16/20 16:00 99.0 92 21 96/57 (70) 100 07/16/20 16:00 Mechanical Ventilator Mechanical Ventilator 07/16/20 16:00 45 07/16/20 16:00 92 07/16/20 16:00 19 111/68 Mechanical Ventilator 45 07/16/20 16:00 19 111/68 Mechanical Ventilator 45 07/16/20 15:49 91 24 45 07/16/20 15:30 18 93/64 Mechanical Ventilator 45 07/16/20 15:00 22 93/64 Mechanical Ventilator 45 07/16/20 15:00 22 93/64 Mechanical Ventilator 45 07/16/20 15:00 100 28 103/60 (74) 100 07/16/20 14:00 29 114/58 Mechanical Ventilator 29 07/16/20 14:00 29 114/58 Mechanical Ventilator 45 07/16/20 14:00 109 30 106/72 (83) 96 07/16/20 13:30 101 24 105/68 (80) 100 07/16/20 13:00 104 27 111/69 (83) 100 07/16/20 13:00 25 105/65 Mechanical Ventilator 45 07/16/20 13:00 25 105/65 Mechanical Ventilator 45 07/16/20 12:30 108 31 105/66 (79) 98 Intake and Output 07/16/20 07/17/20 19:00 07:00 Intake Total 1216 ml 1080 ml Output Total 1725 ml 645 ml Balance -509 ml 435 ml Free Water 100 ml 60 ml IV Total 336 ml 360 ml Tube Feeding 660 ml 660 ml Other 120 ml Output Urine Total 1725 ml 645 ml # Bowel Movements 2 Laboratory Tests Test 07/17/20 03:50 White Blood Count 11.1 K/UL (4.8-10.8) H Red Blood Count 3.45 M/UL (4.20-5.40) L Hemoglobin 9.6 G/DL (12.0-16.0) L Hematocrit 31.8 % (37.0-47.0) L Mean Corpuscular Volume 92 FL (80-99) Mean Corpuscular Hemoglobin 27.7 PG (27.0-31.0) Mean Corpuscular Hemoglobin Concent 30.1 G/DL (32.0-36.0) L Red Cell Distribution Width 17.0 % (11.6-14.8) H Platelet Count 362 K/UL (150-450) Mean Platelet Volume 7.3 FL (6.5-10.1) Neutrophils (%) (Auto) 61.4 % (45.0-75.0) Lymphocytes (%) (Auto) 23.7 % (20.0-45.0) Monocytes (%) (Auto) 7.1 % (1.0-10.0) Eosinophils (%) (Auto) 6.9 % (0.0-3.0) H Basophils (%) (Auto) 1.0 % (0.0-2.0) Sodium Level 138 MMOL/L (136-145) Potassium Level 3.3 MMOL/L (3.5-5.1) L Chloride Level 94 MMOL/L (98-107) L Carbon Dioxide Level 31 MMOL/L (21-32) Anion Gap 13 mmol/L (5-15) Blood Urea Nitrogen 22 mg/dL (7-18) H Creatinine 0.6 MG/DL (0.55-1.30) Estimat Glomerular Filtration Rate > 60 mL/min (>60) Glucose Level 130 MG/DL (74-106) H Calcium Level 9.6 MG/DL (8.5-10.1) Phosphorus Level 3.7 MG/DL (2.5-4.9) Magnesium Level 1.8 MG/DL (1.8-2.4) Total Bilirubin 1.1 MG/DL (0.2-1.0) H Direct Bilirubin 0.2 MG/DL (0.0-0.3) Aspartate Amino Transf (AST/SGOT) 41 U/L (15-37) H Alanine Aminotransferase (ALT/SGPT) 17 U/L (12-78) Alkaline Phosphatase 72 U/L (46-116) Total Protein 8.2 G/DL (6.4-8.2) Albumin 2.3 G/DL (3.4-5.0) L Globulin 5.9 g/dL Albumin/Globulin Ratio 0.4 (1.0-2.7) L Objective HEAD AND NECK: Shows status post tracheostomy.NGT in place LUNGS: Coarse rhonchi. CARDIOVASCULAR: Shows regular S1 and S2 with no gallop. ABDOMEN: Soft. EXTREMITIES: Have 1+ pitting edema. Hill Burger MD Jul 17, 2020 12:23
--- NOTE | 2020-07-17 13:00 | NUR ---
NURSE NOTES: KDur 40meq given via GT per order to replace K=3.3 for this AM labs.
--- NOTE | 2020-07-17 13:20 | Surgery Progress Note ---
Surgery Progress Note Subjective Procedure Performed right femoral central venous line insertion Symptoms: improved, tolerating diet, passing flatus Objective Last 24 Hour Vital Signs Date Time Temp Pulse Resp B/P (MAP) Pulse Ox O2 Delivery O2 Flow Rate FiO2 07/17/20 13:00 111 30 108/68 (81) 97 07/17/20 12:30 102 22 91/53 (66) 99 07/17/20 12:00 110 07/17/20 12:00 103 21 94/59 (71) 99 07/17/20 11:30 109 22 100/48 (65) 98 07/17/20 11:00 109 22 98/59 (72) 98 07/17/20 11:00 24 98/59 Mechanical Ventilator 40 07/17/20 10:45 98 32 60 07/17/20 10:30 110 24 92/65 (74) 97 07/17/20 10:00 129 29 107/67 (80) 78 07/17/20 10:00 27 99/50 Mechanical Ventilator 40 07/17/20 09:30 119 32 102/64 (77) 82 07/17/20 09:00 103 24 94/65 (75) 89 07/17/20 09:00 25 92/61 Mechanical Ventilator 40 07/17/20 08:30 103 24 105/62 (76) 96 07/17/20 08:00 99.0 103 24 89/55 (66) 95 07/17/20 08:00 101 07/17/20 08:00 Mechanical Ventilator Mechanical Ventilator 07/17/20 08:00 40 07/17/20 08:00 24 96/62 Mechanical Ventilator 40 07/17/20 07:05 96 30 60 07/17/20 07:00 28 90/58 Endotracheal Tube 40 07/17/20 07:00 28 90/58 Endotracheal Tube 40 07/17/20 07:00 104 24 90/58 (69) 98 07/17/20 06:30 110 21 07/17/20 06:30 112 26 92/71 (78) 95 07/17/20 06:00 32 103/73 Endotracheal Tube 40 07/17/20 06:00 32 103/73 Endotracheal Tube 40 07/17/20 06:00 130 34 104/65 (78) 69 07/17/20 05:30 108 36 110/81 (91) 98 07/17/20 05:16 97 37 60 2/24/21 05:00 28 106/70 Endotracheal Tube 40 07/17/20 05:00 28 106/70 Endotracheal Tube 40 07/17/20 05:00 103 24 103/66 (78) 100 07/17/20 04:30 105 28 105/65 (78) 100 07/17/20 04:00 60 07/17/20 04:00 Mechanical Ventilator Mechanical Ventilator 07/17/20 04:00 104 07/17/20 04:00 28 103/67 Endotracheal Tube 60 07/17/20 04:00 28 103/67 Endotracheal Tube 60 07/17/20 04:00 98.9 107 24 103/67 (79) 100 07/17/20 03:15 116 33 60 07/17/20 03:00 116 28 107/79 (88) 98 07/17/20 03:00 32 107/79 Endotracheal Tube 60 07/17/20 03:00 32 107/79 Endotracheal Tube 60 07/17/20 02:30 125 31 114/64 (81) 75 07/17/20 02:00 101 29 98/67 (77) 100 07/17/20 02:00 33 98/67 Endotracheal Tube 60 07/17/20 02:00 33 98/67 Endotracheal Tube 60 07/17/20 01:30 29 101/61 40 07/17/20 01:28 29 101/61 Endotracheal Tube 40 07/17/20 01:26 99 23 40 07/17/20 01:00 31 101/61 Endotracheal Tube 40 07/17/20 01:00 31 101/61 Endotracheal Tube 40 07/17/20 01:00 110 39 115/69 (84) 96 07/17/20 00:30 101 27 101/65 (77) 98 07/17/20 00:00 98.9 97 20 96/73 (81) 100 07/17/20 00:00 28 99/66 Endotracheal Tube 40 07/17/20 00:00 28 99/66 Endotracheal Tube 40 07/17/20 00:00 40 07/17/20 00:00 108 07/17/20 00:00 Mechanical Ventilator Mechanical Ventilator 07/16/20 23:32 97 22 40 07/16/20 23:30 102 25 99/61 (74) 99 07/16/20 23:00 100 25 100/65 (77) 100 07/16/20 23:00 27 96/63 Endotracheal Tube 40 07/16/20 23:00 27 96/63 Mechanical Ventilator 40 07/16/20 22:00 30 103/66 Endotracheal Tube 40 07/16/20 22:00 30 103/66 Endotracheal Tube 40 07/16/20 22:00 115 38 106/71 (83) 88 07/16/20 21:39 103 26 40 07/16/20 21:00 29 95/63 Endotracheal Tube 40 07/16/20 21:00 29 95/63 Endotracheal Tube 40 07/16/20 21:00 104 28 97/61 (73) 100 07/16/20 20:00 99.0 99 25 93/71 (78) 99 07/16/20 20:00 Mechanical Ventilator Mechanical Ventilator 07/16/20 20:00 32 105/66 Endotracheal Tube 40 07/16/20 20:00 32 105/66 Endotracheal Tube 40 07/16/20 20:00 106 07/16/20 19:25 94 23 40 07/16/20 19:00 112 28 123/85 (98) 100 07/16/20 19:00 18 123/85 Mechanical Ventilator 40 07/16/20 19:00 18 123/85 Mechanical Ventilator 40 07/16/20 18:30 91 24 106/71 (83) 100 07/16/20 18:00 94 27 110/78 (89) 98 07/16/20 18:00 20 106/73 Mechanical Ventilator 40 07/16/20 18:00 20 106/73 Mechanical Ventilator 40 07/16/20 18:00 40 07/16/20 17:20 40 07/16/20 17:00 96 29 109/67 (81) 100 07/16/20 17:00 18 109/67 Mechanical Ventilator 40 07/16/20 17:00 18 109/67 Mechanical Ventilator 40 07/16/20 16:30 91 25 90/57 (68) 100 07/16/20 16:00 99.0 92 21 96/57 (70) 100 07/16/20 16:00 Mechanical Ventilator Mechanical Ventilator 07/16/20 16:00 45 07/16/20 16:00 92 07/16/20 16:00 19 111/68 Mechanical Ventilator 45 07/16/20 16:00 19 111/68 Mechanical Ventilator 45 07/16/20 15:49 91 24 45 07/16/20 15:30 18 93/64 Mechanical Ventilator 45 07/16/20 15:00 22 93/64 Mechanical Ventilator 45 07/16/20 15:00 22 93/64 Mechanical Ventilator 45 07/16/20 15:00 100 28 103/60 (74) 100 07/16/20 14:00 29 114/58 Mechanical Ventilator 29 07/16/20 14:00 29 114/58 Mechanical Ventilator 45 07/16/20 14:00 109 30 106/72 (83) 96 07/16/20 13:30 101 24 105/68 (80) 100 I&O Intake and Output 07/16/20 07/17/20 19:00 07:00 Intake Total 1216 ml 1080 ml Output Total 1725 ml 645 ml Balance -509 ml 435 ml Free Water 100 ml 60 ml IV Total 336 ml 360 ml Tube Feeding 660 ml 660 ml Other 120 ml Output Urine Total 1725 ml 645 ml # Bowel Movements 2 Dressing: saturated Cardiovascular: RSR Respiratory: decreased breath sounds Abdomen: non-tender, present bowel sounds Extremities: no tenderness, no cyanosis Laboratory Tests Test 07/17/20 03:50 White Blood Count 11.1 K/UL (4.8-10.8) H Red Blood Count 3.45 M/UL (4.20-5.40) L Hemoglobin 9.6 G/DL (12.0-16.0) L Hematocrit 31.8 % (37.0-47.0) L Mean Corpuscular Volume 92 FL (80-99) Mean Corpuscular Hemoglobin 27.7 PG (27.0-31.0) Mean Corpuscular Hemoglobin Concent 30.1 G/DL (32.0-36.0) L Red Cell Distribution Width 17.0 % (11.6-14.8) H Platelet Count 362 K/UL (150-450) Mean Platelet Volume 7.3 FL (6.5-10.1) Neutrophils (%) (Auto) 61.4 % (45.0-75.0) Lymphocytes (%) (Auto) 23.7 % (20.0-45.0) Monocytes (%) (Auto) 7.1 % (1.0-10.0) Eosinophils (%) (Auto) 6.9 % (0.0-3.0) H Basophils (%) (Auto) 1.0 % (0.0-2.0) Sodium Level 138 MMOL/L (136-145) Potassium Level 3.3 MMOL/L (3.5-5.1) L Chloride Level 94 MMOL/L (98-107) L Carbon Dioxide Level 31 MMOL/L (21-32) Anion Gap 13 mmol/L (5-15) Blood Urea Nitrogen 22 mg/dL (7-18) H Creatinine 0.6 MG/DL (0.55-1.30) Estimat Glomerular Filtration Rate > 60 mL/min (>60) Glucose Level 130 MG/DL (74-106) H Calcium Level 9.6 MG/DL (8.5-10.1) Phosphorus Level 3.7 MG/DL (2.5-4.9) Magnesium Level 1.8 MG/DL (1.8-2.4) Total Bilirubin 1.1 MG/DL (0.2-1.0) H Direct Bilirubin 0.2 MG/DL (0.0-0.3) Aspartate Amino Transf (AST/SGOT) 41 U/L (15-37) H Alanine Aminotransferase (ALT/SGPT) 17 U/L (12-78) Alkaline Phosphatase 72 U/L (46-116) Total Protein 8.2 G/DL (6.4-8.2) Albumin 2.3 G/DL (3.4-5.0) L Globulin 5.9 g/dL Albumin/Globulin Ratio 0.4 (1.0-2.7) L Plan Problems: (1) Respiratory distress (2) Respiratory failure Assessment & Plan: 50-year-old female Covid positive respiratory insufficiency intubated on ventilatory support declining. Leukocytosis increase oxygen requirement. Vent settings per pulmonology reviewed identified and agree. Unfortunately further surgical invention at this time is not appropriate as patient is not a candidate and her current condition. Prognosis overall guarded. Tracheostomy can be considered in the future if recovering or shows improvement and requires unable to be weaned from ventilator support. Currently okay for nutritional optimization with NG tube. Will need significant monitoring for decubitus formation given patient's size and condition. Okay for air mattress tolerated. Turn every 2 hours as tolerated. Patient is otherwise critically ill and blood pressure labile. Will need to monitor closely.Bilateral infiltrates are again demonstrated. Stable tube and line positions. will need trach will need to wean vent first no cuff leak trach okay Improving weaning well DC planning placement (3) Hypoxia (4) Pneumonia due to COVID-19 virus Assessment & Plan: ++ as per pulm and ID (5) Diabetes mellitus out of control Assessment & Plan: DAILY ESTIMATED NEEDS: Needs based on Critical care, obesity 11-14kcal/kg actual body wt (140kg) kcals/kg 0436-6378 total kcals 1.5-2.0g prot/kg IBW (64.5kg) g protein/kg 96-129 g total protein 25-30ml/kg abw (83kg) mL/kg 1124-9401 total fluid mLs NUTRITION DIAGNOSIS: Swallowing difficulty R/T respiratory failure as evidenced by pt orally intubated and sedated, on OGT feeds. CURRENT TF: Vital 1.2 goal of 60ml/hr ENTERAL NUTRITION RECOMMENDATIONS: Vital AF 1.2 @ 60ml/hr x 24 hrs to provide 1440ml, 1728kcal, 108g prot, 1168ml free water * Maintain current critical care and carb controlled TF formula of Vital AF * TF @ goal meeds 100% est kcal/prot needs * HOB over 30 degrees/ water flush per MD TF may be lowered to 55ml/hr for improved BG control while maintaining Kcal and pro needs. ADDITIONAL RECOMMENDATIONS: * Calibrated bedscale wt * Monitor Propofol rate, need for TF adjustment-> now off * Monitor BGs closely : now improved, on novolog q 6rs + NISS * Monitor lytes- K elevated, monitor need for TF change * Rec bowel regimen- now w/ rectal tube . Az Devine Jul 17, 2020 13:20
--- NOTE | 2020-07-17 14:00 | NUR ---
NURSE NOTES: Dr Nava at the nurse's station. Updated on pt's status. Order in place for Lovenox and venous duplex for BLE.
--- NOTE | 2020-07-17 14:02 | Diagnostic Imaging Report ---
Indication: Leg pain and swelling, shortness of breath Technique: Grayscale and duplex images of the bilateral lower extremity veins Comparison: 07/04/2020 Findings: Visualized portions of the right common femoral, greater saphenous, proximal/mid/distal femoral veins and popliteal vein are patent with normal compressibility and color flow. Partially occlusive thrombus is again noted within the posterior tibial and peroneal veins, similar to the prior exam. Possessed portions of the left common femoral, greater saphenous, proximal/mid/distal femoral veins and popliteal vein are patent with normal compressibility and color flow. Visualized calf veins on left are patent. IMPRESSION: Overall no significant change compared to exam of 07/04/2020. Thrombosis of the calf veins on the right, similar to the prior exam. No evidence of suprageniculate deep venous thrombosis on the right. No evidence of deep venous thrombosis involving the visualized veins of the left lower extremity.
--- NOTE | 2020-07-17 16:00 | NUR ---
NURSE NOTES: Venous duplex was completed at bedside, per hvac installation technician preliminary result is negative for any DVTs on bilateral lower extremities. Pt was cleaned, gown/bed linens were changed. Repositioned for comfort, oral care done.
--- NOTE | 2020-07-17 18:00 | NUR ---
NURSE NOTES: Maintained RASS score of -2 light sedation while on Fentanyl drip at 100mcg/hr and Versed drip at 10mg/hr. Accucheck resulted 143 (no coverage ordered). Received order from Dr Del Cid to GI consult (Dr Strong). Order in place for GI consult. Charge nurse notified.
--- NOTE | 2020-07-17 19:30 | NUR ---
NURSE HAND-OFF REPORT: Latest Vital Signs: Temperature 98.7 , Pulse 87 , B/P 84 /56 , Respiratory Rate 19 , O2 SAT 100 , Mechanical Ventilator, trach to vent Shiley 8 XLT, AC15, VT600, Peep 5, FIO2 40%. Vital Sign Comment: Sedated -2 light sedation/RASS while maintained on Fentanyl drip 100mcg/hr and Versed drip 1mg/hr. EKG Rhythm: Sinus Rhythm Rhythm change?: Jesus TOLLIVER Notified?: Jesus EDWARDS MD Response: Latest Meyers Fall Score: 70 Fall Risk: High Risk Safety Measures: Call light Within Reach, Bed Alarm Zone 1, Side Rails Side Rails x2, Bed position Low and Locked. Fall Precautions: Yellow Socks Report given to Nhung ELLINGTON. Endorsed plan of care.
--- NOTE | 2020-07-17 19:30 | NUR ---
NURSE NOTES: Pt was assessed after change of shift report from RAKEL Villasenor. Sedated while on Fentanyl drip @100mcg/hr and Versed drip 10mg/hr to maintain RASS -2 light sedation. Trach to vent Shiley 8 XLT with vent settings AC15, VT600, Peep 5, FIO2 40% with O2Sat 100%. NSR on youth nutritional monitor, HR 80. NGT with feeding Vital AF infusing at goal rate of 60ml/hour, with zero residual. Lennon catheter 18F, draining dark yellow urine. Central line right femoral triple lumen, patent, dressing intact, connected to Fentanyl/Versed drips. Skin is intact. Pt is on pressure release mattress, HOB at 30degrees, bed locked, three side rails up. Safety measures observed and no acute distress noted. Will continue to monitor.
[2020-07-17] MEDS: Dyna-Hex 2% Top Sol 2oz TOPIC SCH (20:03)
[2020-07-17] MEDS: Enoxaparin 120 mg inj SUBQ SCH (21:00)
--- NOTE | 2020-07-17 21:00 | NUR ---
NURSE NOTES: PM meds given Turned and repositioned Oral care provided.
[2020-07-17] MEDS: Norepinephrine 4mg/NS Premix 250 ML IV SCH (22:15)
--- NOTE | 2020-07-17 22:15 | NUR ---
NURSE NOTES: Pt's BP down to 80s/60s. Levophed ordered. Contacted [employer] to verify the order but their computer was frozen, not able to verify. Notified to clerical warehouseman and override the order from [facility].
[2020-07-18] VITALS (38 sets, daily range): BP systolic 91–127; BP diastolic 57–77
--- NOTE | 2020-07-18 | NUR ---
NURSE NOTES: Remains Sedated while on Fentanyl drip @100mcg/hr and Versed drip 10mg/hr to maintain RASS -2 light sedation. Trach to vent Shiley 8 XLT with vent settings AC15, VT600, Peep 5, FIO2 40% with O2Sat 100%. NSR on kettle operator head, HR 80. NGT with feeding Vital AF infusing at goal rate of 60ml/hour, with zero residual. Lennon catheter 18F, draining dark yellow urine. Central line right femoral triple lumen, patent, dressing intact, connected to Fentanyl/Versed/ Levo drips. Skin is intact. Pt is on pressure release mattress, HOB at 30degrees, bed locked, three side rails up. Safety measures observed and no acute distress noted. Will continue to monitor.
--- NOTE | 2020-07-18 03:00 | NUR ---
NURSE NOTES: AM care provided Large BM noted. Changed gowns and linens. Turned and repositioned.
[2020-07-18] MEDS: fentaNYL 2500mcg/NS 250ml 250 ML IV SCH (05:30)
[2020-07-18] MEDS: Midodrine 10mg tab GT SCH ×3 (06:00→21:12)
[2020-07-18 06:25] LABS: EOSINOPHILS % (AUTO) 8.8 % (0.0-3.0); HEMATOCRIT 29.4 % (37.0-47.0); HEMOGLOBIN 8.9 G/DL (12.0-16.0); LYMPHOCYTES % (AUTO) 30.2 % (20.0-45.0); MEAN CORPUSCULAR VOLUME 92 FL (80-99); MONOCYTES % (AUTO) 7.2 % (1.0-10.0); NEUTROPHILS % (AUTO) 52.8 % (45.0-75.0); PLATELET COUNT 348 K/UL (150-450); RED CELL DISTRIBUTION WIDTH 17.1 % (11.6-14.8); WHITE BLOOD COUNT 10.2 K/UL (4.8-10.8)
[2020-07-18 06:31] LABS: ANION GAP 6 mmol/L (5-15); BLOOD UREA NITROGEN 18 mg/dL (7-18); CALCIUM 10.1 MG/DL (8.5-10.1); CARBON DIOXIDE 37 MMOL/L (21-32); CHLORIDE 95 MMOL/L (98-107); CREATININE 0.5 MG/DL (0.55-1.30); POTASSIUM 3.3 MMOL/L (3.5-5.1); SODIUM 138 MMOL/L (136-145)
--- NOTE | 2020-07-18 07:08 | Hematology/Onc Progress Note ---
Assessment/Plan Assessment/Plan # Deep vein thrombosis of the right calf --> given onoing anemia and low plts --> consider ivc if bleeding--once stable, needs it placed --> once stable, for radiology and ivc filter placement # Thrombocytopenia is due to infection/underlying covid19+++ --> ABX ceftriaxone -->zosyn-->off --> on steriods likely cause of initial wbc --> per pulm --> plt 107->156-->192-->205 --> smear reviewed # Leukocytosis due to Pneumonia due to COVID-19 virus --> per pulm rx -> sp remdesivir --> wbc 11.9-->11 # Anemia due to chronic disease --> hgb goal is >7 --> transfuse prn --> ferritin is >1000 --> hold off on iron --> 10-->9.8->9-->8-->8.2-->9.4-->8.1-->9.9-->9.6-->9.5-->9.6 # Elevated ddimer due to covid19++ --> duplex legs is negative --> underlying covid rx # Hypoxia -> due to covid19 --> steriods as needed # Hypoxemia --> rx same as above # Respiratory failure --> on vent/trach --> per pulm # Diabetes mellitus out of control --> hgb a1c goal <7 # Poor prognosis # Dvt ppx ivc filter once more stable Appreciate consultation and bowen RN Subjective Allergies: Coded Allergies: No Known Allergies (Unverified , 05/28/20) All Systems: reviewed and negative except above Subjective 06/10 nv, on vent, with ogt, on fentanyl and versed, plt stable 06/11 nv, vent adjusted is on ogt, meds reviewed 06/12 nv, vent, meds noted, labs noted, no bleeding, hgb 10.4 06/13 nv, is on vent, meds reviewed, no bleeding, cbc reviewed 06/14 nv, on vent, tachy, labs reviewed, gross hematuria, febrile overnight, abx 06/17 nv, on vent, labs noted, no major changes, feeling better overnight 06/18 nv, meds reviewed, labs noted, no major events, hgb 8.6 06/19 nv, remains intubated, with fluids, labs reviewed, meds noted 06/20 nv, intubated remains on restraints, meds noted as well, as labs 06/21 nv, remains on vent, on restraints, meds reviewed, labs noted 06/22: covering Dr. Del Cid no acute events 06/23 sedated, on vent, nv, intubated, meds reviewed, versed 06/24 nv, on vent, no night sweats, no bleeding, remains in icu 06/25 nv, on vent, icu, meds noted, no bleeding, comfortable 06/26 nv, on versed, icu, weaning parameters, labs noted 06/27 nv, overnight fighting vent, as per pulm fentanyl on board 06/28 nv, on vent, labs reviewed, as per pulm, meds noted 06/30 nv, icu, labs pending, is on fentanyl, versed, no new changes 07/01 nv, icu, is on vent, labs pending, no new changes per rn 07/02 nv, icu is on vent, labs noted, hgb is stable 07/03 nv, icu, is on vent, potential trrach when stable, cbc reviewed 07/04 icu, nv, labs are noted, stable for trach today bowen Lizama 07/05 icu, nv, on vent, with ng and picc in place, labs noted, s/p trach 07/07 icu, nv, on tv, no bleeding, labs noted, meds reviewed 07/08 icu, nv, on tv, labs reviewed, meds noted, no bleeding 07/09 icu, nv, meds noted, no bleeding, blood transfusion was completed 07/10 icu, nv, labs ntoed, no bleeding, hgb improved, hgb 7.8 07/11 icu, nv, labs reviewed, hgb is improved, for ivcf if stabilizes 07/12 icu, nv, labs reviewed, meds noted, no bleeding, remains on vent 07/13 icu, on vent, nv, no bleeding, labs reviewed, no major events, dw rn 07/14 icu, on vent, nv, tolerating ngt feeds, dw Rn, meds reviewed 07/15 icu, on vent, trach, tolerating ngt, meds noted, no bleeding 07/16 icu, vent, labs are noted, with trach, is stable, hgb 9.2 07/17 icu, had a bm overnight, remains on vent with trach, labs noted 07/18 icu, nv, labs are ntoed, no bleeding, on trach, on levophed Objective Objective Current Medications Medications (Trade) Dose Ordered Sig/Zelda Route PRN Reason Start Time Stop Time Status Last Admin Dose Admin Acetaminophen (Tylenol) 650 mg Q4H PRN NG Temp >100.5 06/29/20 10:15 07/29/20 10:14 07/08/20 18:26 Acetaminophen (Tylenol) 650 mg Q6H PRN NG Mild Pain (Pain Scale 1-3) 06/29/20 10:15 07/29/20 10:14 Chlorhexidine Gluconate (Inna-Hex 2%) 1 applic DAILY@2000 TOPIC 05/30/20 20:00 08/28/20 19:59 07/17/20 20:03 Dextrose (Dextrose 50%) 25 ml Q30M PRN IV Hypoglycemia 06/05/20 10:45 09/03/20 10:44 Dextrose (Dextrose 50%) 50 ml Q30M PRN IV Hypoglycemia 06/05/20 10:45 09/03/20 10:44 Enoxaparin Sodium (Lovenox) 110 mg EVERY 12 HOURS SUBQ 07/17/20 21:00 10/15/20 20:59 07/17/20 21:00 Fentanyl Citrate 250 ml @ 8 mls/hr Q24H IV 07/18/20 05:30 07/20/20 05:29 07/18/20 05:30 Furosemide (Lasix) 40 mg DAILY IV 06/22/20 09:00 07/22/20 08:59 07/17/20 09:22 Guaifenesin/ Codeine Phosphate (Robitussin with codeine) 5 ml Q6H PRN NG For Cough 07/14/20 14:15 08/13/20 14:14 07/15/20 11:05 Lansoprazole (Prevacid) 30 mg DAILY GT 07/18/20 09:00 08/09/20 08:59 Midazolam HCl 200 ml @ 0 mls/hr Q24H PRN IV To Patient Comfort 07/17/20 12:00 07/24/20 11:59 07/17/20 23:00 Midodrine (Pro-Amatine) 10 mg Q8HR GT 06/30/20 14:00 09/12/20 13:59 07/17/20 20:27 Norepinephrine Bitartrate 250 ml @ 7.5 mls/hr Q24H IV 07/17/20 22:15 07/20/20 22:05 07/17/20 22:15 Potassium Chloride (K-Dur) 40 meq TWICE A DAY GT 07/17/20 12:15 10/15/20 12:14 07/17/20 16:56 Quetiapine Fumarate (SEROqueL) 50 mg Q12HR GT 07/16/20 13:30 08/30/20 13:29 07/17/20 20:27 Vitamin D (Vitamin D) 5,000 unit DAILY GT 06/28/20 09:00 07/28/20 08:59 07/17/20 09:22 Last 24 Hour Vital Signs Date Time Temp Pulse Resp B/P (MAP) Pulse Ox O2 Delivery O2 Flow Rate FiO2 07/18/20 07:00 85 23 104/70 (81) 100 07/18/20 06:00 98.9 93 22 104/68 (80) 100 07/18/20 05:30 31 115/63 Mechanical Ventilator 31.0 40 07/18/20 05:00 104 28 107/72 (84) 94 07/18/20 04:54 94 22 40 07/18/20 04:00 100 26 103/65 (78) 100 07/18/20 04:00 Mechanical Ventilator Mechanical Ventilator 07/18/20 04:00 40 07/18/20 04:00 100 07/18/20 03:30 102 22 40 07/18/20 03:00 101 25 109/65 (80) 96 07/18/20 02:00 100 28 102/71 (81) 99 07/18/20 02:00 22 93/55 Mechanical Ventilator 40 07/18/20 01:13 101 23 40 07/18/20 01:00 101 25 101/61 (74) 96 07/18/20 01:00 25 101/61 Mechanical Ventilator 40 07/18/20 01:00 25 101/61 Mechanical Ventilator 40 07/18/20 00:00 87 19 91/57 (68) 100 07/18/20 00:00 Mechanical Ventilator Mechanical Ventilator 07/18/20 00:00 19 91/57 Mechanical Ventilator 40 07/18/20 00:00 19 91/57 Mechanical Ventilator 40 07/18/20 00:00 87 07/18/20 00:00 40 07/17/20 23:16 93 21 40 07/17/20 23:00 23 92/62 Mechanical Ventilator 65 07/17/20 23:00 23 92/62 Mechanical Ventilator 40 07/17/20 23:00 95 23 92/62 (72) 98 07/17/20 22:30 98 22 97/70 (79) 99 07/17/20 22:15 85/60 07/17/20 22:15 98 22 85/60 (68) 98 07/17/20 22:00 101 23 88/53 (65) 99 07/17/20 22:00 23 88/53 Mechanical Ventilator 40 07/17/20 22:00 23 88/53 Mechanical Ventilator 40 07/17/20 21:30 103 21 40 07/17/20 21:00 20 93/51 Mechanical Ventilator 40.0 07/17/20 21:00 20 93/51 Mechanical Ventilator 40 07/17/20 21:00 99 20 93/51 (65) 99 07/17/20 20:00 21 88/58 Mechanical Ventilator 40 07/17/20 20:00 21 88/58 Mechanical Ventilator 40 07/17/20 20:00 Mechanical Ventilator Mechanical Ventilator 07/17/20 20:00 40 07/17/20 20:00 96 21 88/58 (68) 99 07/17/20 20:00 96 07/17/20 19:30 95 22 40 07/17/20 19:00 19 84/56 Mechanical Ventilator 40 07/17/20 19:00 19 84/56 40 07/17/20 19:00 87 19 84/56 (65) 100 07/17/20 18:30 87 22 97/59 (72) 100 07/17/20 18:00 19 96/62 Mechanical Ventilator 40 07/17/20 18:00 19 96/62 Mechanical Ventilator 40 07/17/20 18:00 86 19 96/62 (73) 100 07/17/20 17:14 86 20 90/60 (70) 100 07/17/20 17:00 23 98/55 Mechanical Ventilator 40 07/17/20 17:00 23 98/65 Mechanical Ventilator 40 07/17/20 17:00 91 21 93/63 (73) 100 07/17/20 16:00 Mechanical Ventilator Mechanical Ventilator 07/17/20 16:00 40 07/17/20 16:00 99 07/17/20 16:00 27 111/69 Mechanical Ventilator 40 07/17/20 16:00 27 111/69 Mechanical Ventilator 40 07/17/20 16:00 98.7 98 19 107/69 (82) 100 07/17/20 15:00 86 20 90/60 (70) 100 07/17/20 15:00 22 90/60 Mechanical Ventilator 40 07/17/20 15:00 22 90/60 Mechanical Ventilator 40 07/17/20 14:40 101 28 60 07/17/20 14:00 105 27 92/57 (69) 99 07/17/20 14:00 22 97/57 Mechanical Ventilator 40 07/17/20 14:00 22 97/57 Mechanical Ventilator 40 07/17/20 13:30 99.4 101 23 101/67 (78) 99 07/17/20 13:00 111 30 108/68 (81) 97 07/17/20 13:00 29 107/58 Mechanical Ventilator 40 07/17/20 13:00 29 107/58 Mechanical Ventilator 40 07/17/20 12:30 102 22 91/53 (66) 99 07/17/20 12:00 40 07/17/20 12:00 21 94/59 Mechanical Ventilator 40 07/17/20 12:00 21 94/59 Mechanical Ventilator 40 07/17/20 12:00 110 07/17/20 12:00 Mechanical Ventilator Mechanical Ventilator 07/17/20 12:00 103 21 94/59 (71) 99 07/17/20 11:38 20 90/60 Mechanical Ventilator 40 07/17/20 11:30 109 22 100/48 (65) 98 07/17/20 11:00 109 22 98/59 (72) 98 07/17/20 11:00 24 98/59 Mechanical Ventilator 40 07/17/20 11:00 24 98/59 Mechanical Ventilator 40 07/17/20 10:45 98 32 60 07/17/20 10:30 110 24 92/65 (74) 97 07/17/20 10:00 129 29 107/67 (80) 78 2/24/21 10:00 27 99/50 Mechanical Ventilator 40 07/17/20 10:00 27 99/50 Mechanical Ventilator 40 07/17/20 09:30 119 32 102/64 (77) 82 07/17/20 09:00 103 24 94/65 (75) 89 07/17/20 09:00 25 92/61 Mechanical Ventilator 40 07/17/20 09:00 25 92/61 Mechanical Ventilator 40 07/17/20 08:30 103 24 105/62 (76) 96 07/17/20 08:00 99.0 103 24 89/55 (66) 95 07/17/20 08:00 101 07/17/20 08:00 Mechanical Ventilator Mechanical Ventilator 07/17/20 08:00 40 07/17/20 08:00 24 96/62 Mechanical Ventilator 40 07/17/20 08:00 24 96/62 Mechanical Ventilator 40 07/17/20 07:05 96 30 60 07/17/20 07:00 28 90/58 Endotracheal Tube 40 07/17/20 07:00 28 90/58 Endotracheal Tube 40 07/17/20 07:00 104 24 90/58 (69) 98 07/17/20 06:30 110 21 07/17/20 06:30 112 26 92/71 (78) 95 07/17/20 06:00 32 103/73 Endotracheal Tube 40 07/17/20 06:00 32 103/73 Endotracheal Tube 40 07/17/20 06:00 130 34 104/65 (78) 69 07/17/20 05:30 108 36 110/81 (91) 98 07/17/20 05:16 97 37 60 07/17/20 05:00 28 106/70 Endotracheal Tube 40 07/17/20 05:00 28 106/70 Endotracheal Tube 40 07/17/20 05:00 103 24 103/66 (78) 100 07/17/20 04:30 105 28 105/65 (78) 100 07/17/20 04:00 60 07/17/20 04:00 Mechanical Ventilator Mechanical Ventilator 07/17/20 04:00 104 07/17/20 04:00 28 103/67 Endotracheal Tube 60 07/17/20 04:00 28 103/67 Endotracheal Tube 60 07/17/20 04:00 98.9 107 24 103/67 (79) 100 07/17/20 03:15 116 33 60 07/17/20 03:00 116 28 107/79 (88) 98 07/17/20 03:00 32 107/79 Endotracheal Tube 60 07/17/20 03:00 32 107/79 Endotracheal Tube 60 07/17/20 02:30 125 31 114/64 (81) 75 07/17/20 02:00 101 29 98/67 (77) 100 07/17/20 02:00 33 98/67 Endotracheal Tube 60 07/17/20 02:00 33 98/67 Endotracheal Tube 60 07/17/20 01:30 29 101/61 40 07/17/20 01:28 29 101/61 Endotracheal Tube 40 07/17/20 01:26 99 23 40 07/17/20 01:00 31 101/61 Endotracheal Tube 40 07/17/20 01:00 31 101/61 Endotracheal Tube 40 07/17/20 01:00 110 39 115/69 (84) 96 07/17/20 00:30 101 27 101/65 (77) 98 07/17/20 00:00 98.9 97 20 96/73 (81) 100 07/17/20 00:00 28 99/66 Endotracheal Tube 40 07/17/20 00:00 28 99/66 Endotracheal Tube 40 07/17/20 00:00 40 07/17/20 00:00 108 07/17/20 00:00 Mechanical Ventilator Mechanical Ventilator 07/16/20 23:32 97 22 40 07/16/20 23:30 102 25 99/61 (74) 99 07/16/20 23:00 100 25 100/65 (77) 100 07/16/20 23:00 27 96/63 Endotracheal Tube 40 07/16/20 23:00 27 96/63 Mechanical Ventilator 40 07/16/20 22:00 30 103/66 Endotracheal Tube 40 07/16/20 22:00 30 103/66 Endotracheal Tube 40 07/16/20 22:00 115 38 106/71 (83) 88 07/16/20 21:39 103 26 40 07/16/20 21:00 29 95/63 Endotracheal Tube 40 07/16/20 21:00 29 95/63 Endotracheal Tube 40 07/16/20 21:00 104 28 97/61 (73) 100 07/16/20 20:00 99.0 99 25 93/71 (78) 99 2/23/21 20:00 Mechanical Ventilator Mechanical Ventilator 07/16/20 20:00 32 105/66 Endotracheal Tube 40 07/16/20 20:00 32 105/66 Endotracheal Tube 40 07/16/20 20:00 106 07/16/20 19:25 94 23 40 07/16/20 19:00 112 28 123/85 (98) 100 07/16/20 19:00 18 123/85 Mechanical Ventilator 40 07/16/20 19:00 18 123/85 Mechanical Ventilator 40 07/16/20 18:30 91 24 106/71 (83) 100 07/16/20 18:00 94 27 110/78 (89) 98 07/16/20 18:00 20 106/73 Mechanical Ventilator 40 07/16/20 18:00 20 106/73 Mechanical Ventilator 40 07/16/20 18:00 40 07/16/20 17:20 40 07/16/20 17:00 96 29 109/67 (81) 100 07/16/20 17:00 18 109/67 Mechanical Ventilator 40 07/16/20 17:00 18 109/67 Mechanical Ventilator 40 07/16/20 16:30 91 25 90/57 (68) 100 07/16/20 16:00 99.0 92 21 96/57 (70) 100 07/16/20 16:00 Mechanical Ventilator Mechanical Ventilator 07/16/20 16:00 45 07/16/20 16:00 92 07/16/20 16:00 19 111/68 Mechanical Ventilator 45 07/16/20 16:00 19 111/68 Mechanical Ventilator 45 07/16/20 15:49 91 24 45 07/16/20 15:30 18 93/64 Mechanical Ventilator 45 07/16/20 15:00 22 93/64 Mechanical Ventilator 45 07/16/20 15:00 22 93/64 Mechanical Ventilator 45 07/16/20 15:00 100 28 103/60 (74) 100 07/16/20 14:00 29 114/58 Mechanical Ventilator 29 07/16/20 14:00 29 114/58 Mechanical Ventilator 45 07/16/20 14:00 109 30 106/72 (83) 96 07/16/20 13:30 101 24 105/68 (80) 100 07/16/20 13:00 104 27 111/69 (83) 100 07/16/20 13:00 25 105/65 Mechanical Ventilator 45 07/16/20 13:00 25 105/65 Mechanical Ventilator 45 07/16/20 12:30 108 31 105/66 (79) 98 07/16/20 12:15 101 22 113/72 (86) 100 07/16/20 12:00 102 07/16/20 12:00 28 113/72 Mechanical Ventilator 45 07/16/20 12:00 28 113/72 Mechanical Ventilator 45 07/16/20 12:00 Mechanical Ventilator Mechanical Ventilator 07/16/20 12:00 99.8 102 22 105/72 (83) 100 07/16/20 11:45 107 23 105/65 (78) 100 07/16/20 11:30 106 24 108/66 (80) 100 07/16/20 11:26 112 33 45 07/16/20 11:15 114 25 111/71 (84) 100 07/16/20 11:00 109 23 115/71 (86) 99 07/16/20 11:00 40 111/71 Mechanical Ventilator 45 07/16/20 11:00 40 111/71 Mechanical Ventilator 45 07/16/20 10:45 109 26 111/70 (84) 100 07/16/20 10:30 110 27 122/70 (87) 97 07/16/20 10:15 109 29 115/71 (86) 99 07/16/20 10:00 101 28 115/74 (88) 100 07/16/20 10:00 38 115/71 Mechanical Ventilator 45 07/16/20 10:00 38 115/71 Mechanical Ventilator 45 07/16/20 09:45 107 26 108/75 (86) 96 07/16/20 09:30 110 28 113/79 (90) 97 07/16/20 09:15 109 27 106/72 (83) 98 07/16/20 09:00 45 07/16/20 09:00 24 106/72 Mechanical Ventilator 45 07/16/20 09:00 24 106/72 Mechanical Ventilator 45 07/16/20 09:00 103 20 116/68 (84) 100 07/16/20 09:00 103 20 116/68 (84) 100 07/16/20 08:45 108 30 112/72 (85) 97 07/16/20 08:30 103 20 113/72 (86) 100 07/16/20 08:15 115 32 105/47 (66) 97 07/16/20 08:00 50 07/16/20 08:00 Mechanical Ventilator Mechanical Ventilator 07/16/20 08:00 23 105/47 Mechanical Ventilator 45 07/16/20 08:00 23 105/47 Mechanical Ventilator 45 07/16/20 08:00 109 07/16/20 08:00 100.0 103 22 116/65 (82) 99 07/16/20 07:39 108 22 45 Intake and Output 07/17/20 07/18/20 19:00 07:00 Intake Total 1260 ml 887.625 ml Output Total 450 ml 400 ml Balance 810 ml 487.625 ml Free Water 180 ml IV Total 360 ml 287.625 ml Tube Feeding 720 ml 600 ml Output Urine Total 450 ml 400 ml # Bowel Movements 6 6 Labs Test 07/16/20 03:10 07/17/20 03:50 07/18/20 04:32 White Blood Count 10.0 K/UL (4.8-10.8) 11.1 K/UL (4.8-10.8) 10.2 K/UL (4.8-10.8) Red Blood Count 3.25 M/UL (4.20-5.40) 3.45 M/UL (4.20-5.40) 3.20 M/UL (4.20-5.40) Hemoglobin 9.2 G/DL (12.0-16.0) 9.6 G/DL (12.0-16.0) 8.9 G/DL (12.0-16.0) Hematocrit 29.9 % (37.0-47.0) 31.8 % (37.0-47.0) 29.4 % (37.0-47.0) Mean Corpuscular Volume 92 FL (80-99) 92 FL (80-99) 92 FL (80-99) Mean Corpuscular Hemoglobin 28.3 PG (27.0-31.0) 27.7 PG (27.0-31.0) 27.8 PG (27.0-31.0) Mean Corpuscular Hemoglobin Concent 30.8 G/DL (32.0-36.0) 30.1 G/DL (32.0-36.0) 30.3 G/DL (32.0-36.0) Red Cell Distribution Width 17.0 % (11.6-14.8) 17.0 % (11.6-14.8) 17.1 % (11.6-14.8) Platelet Count 394 K/UL (150-450) 362 K/UL (150-450) 348 K/UL (150-450) Mean Platelet Volume 6.9 FL (6.5-10.1) 7.3 FL (6.5-10.1) 7.1 FL (6.5-10.1) Neutrophils (%) (Auto) 58.1 % (45.0-75.0) 61.4 % (45.0-75.0) 52.8 % (45.0-75.0) Lymphocytes (%) (Auto) 26.6 % (20.0-45.0) 23.7 % (20.0-45.0) 30.2 % (20.0-45.0) Monocytes (%) (Auto) 7.3 % (1.0-10.0) 7.1 % (1.0-10.0) 7.2 % (1.0-10.0) Eosinophils (%) (Auto) 7.0 % (0.0-3.0) 6.9 % (0.0-3.0) 8.8 % (0.0-3.0) Basophils (%) (Auto) 1.0 % (0.0-2.0) 1.0 % (0.0-2.0) 1.0 % (0.0-2.0) Sodium Level 142 MMOL/L (136-145) 138 MMOL/L (136-145) 138 MMOL/L (136-145) Potassium Level 3.5 MMOL/L (3.5-5.1) 3.3 MMOL/L (3.5-5.1) 3.3 MMOL/L (3.5-5.1) Chloride Level 98 MMOL/L (98-107) 94 MMOL/L (98-107) 95 MMOL/L (98-107) Carbon Dioxide Level 42 MMOL/L (21-32) 31 MMOL/L (21-32) 37 MMOL/L (21-32) Anion Gap 3 mmol/L (5-15) 13 mmol/L (5-15) 6 mmol/L (5-15) Blood Urea Nitrogen 19 mg/dL (7-18) 22 mg/dL (7-18) 18 mg/dL (7-18) Creatinine 0.5 MG/DL (0.55-1.30) 0.6 MG/DL (0.55-1.30) 0.5 MG/DL (0.55-1.30) Estimat Glomerular Filtration Rate > 60 mL/min (>60) > 60 mL/min (>60) > 60 mL/min (>60) Glucose Level 129 MG/DL (74-106) 130 MG/DL (74-106) 116 MG/DL (74-106) Calcium Level 9.7 MG/DL (8.5-10.1) 9.6 MG/DL (8.5-10.1) 10.1 MG/DL (8.5-10.1) Phosphorus Level 3.4 MG/DL (2.5-4.9) 3.7 MG/DL (2.5-4.9) Magnesium Level 1.6 MG/DL (1.8-2.4) 1.8 MG/DL (1.8-2.4) Total Bilirubin 1.0 MG/DL (0.2-1.0) 1.1 MG/DL (0.2-1.0) Aspartate Amino Transf (AST/SGOT) 28 U/L (15-37) 41 U/L (15-37) Alanine Aminotransferase (ALT/SGPT) 15 U/L (12-78) 17 U/L (12-78) Alkaline Phosphatase 77 U/L (46-116) 72 U/L (46-116) Troponin I 0.004 ng/mL (0.000-0.056) C-Reactive Protein, Quantitative 30.0 mg/dL (0.00-0.90) Pro-B-Type Natriuretic Peptide 184 pg/mL (0-125) Total Protein 8.0 G/DL (6.4-8.2) 8.2 G/DL (6.4-8.2) Albumin 2.2 G/DL (3.4-5.0) 2.3 G/DL (3.4-5.0) Globulin 5.8 g/dL 5.9 g/dL Albumin/Globulin Ratio 0.4 (1.0-2.7) 0.4 (1.0-2.7) Direct Bilirubin 0.2 MG/DL (0.0-0.3) Height (Feet): 5 Height (Inches): 6.00 Weight (Pounds): 239 Objective GeNL: nv HEENT: ngt++ Pulm: vent/trach++ CV: rrr Abd: soft, nt, nd Ext: no cce Myron Condon MD Jul 18, 2020 07:08
--- NOTE | 2020-07-18 07:30 | NUR ---
HAND OFF: Report given to RAKEL Villasenor. Endorsed POC.
--- NOTE | 2020-07-18 08:00 | NUR ---
NURSE NOTES: Pt was assessed after change of shift report from Nhung ELLINGTON. Sedated while on Fentanyl drip @80mcg/hr and Versed drip 10mg/hr to maintain RASS -2 light sedation. Levophed drip is infusing at 2mcg/min for SBP above 90. Trach to vent Shiley 8 XLT with vent settings AC15, VT600, Peep 5, FIO2 40% with O2Sat 100%. NSR on library monitor, HR 80. NGT with feeding Vital AF infusing at goal rate of 60ml/hour, with zero residual. Lennon catheter 18F, draining dark yellow urine. Central line right femoral triple lumen, patent, dressing intact, connected to Levophed/Fentanyl/Versed drips. Skin is intact. Pt is on pressure release mattress, HOB at 30degrees, bed locked, three side rails up. Will continue to monitor pt and follow plan of care per MD orders and protocol.
[2020-07-18] MEDS: Vitamin D 1000 units Tab GT SCH (08:57)
[2020-07-18] MEDS: Enoxaparin 120 mg inj SUBQ SCH ×2 (08:58→21:15)
[2020-07-18] MEDS: Versed 100mg/NS 200ml 200 ML IV PRN ×2 (09:30→18:40)
--- NOTE | 2020-07-18 09:52 | NUR ---
RD ASSESSMENT & RECOMMENDATIONS SEE CARE ACTIVITY FOR COMPLETE ASSESSMENT DAILY ESTIMATED NEEDS: Needs based on Critical care, obesity 11-14kcal/kg actual body wt (140kg) kcals/kg 1981-2904 total kcals 1.5-2.0g prot/kg IBW (64.5kg) g protein/kg 96-129 g total protein 25-30ml/kg abw (83kg) mL/kg 4078-0919 total fluid mLs NUTRITION DIAGNOSIS: Swallowing difficulty R/T respiratory failure as evidenced by pt now s/p trach placement (07/04), sedated, on NGT feeds. CURRENT TF: Vital 1.2 @60 ml ENTERAL NUTRITION RECOMMENDATIONS: Glucerna 1.2 @ 55ml/hr x 24 hrs + Prosource 1pkt BID to provide 1320ml, 1584kcal, 79g+22g prot, 1063ml free water * As medically appropriate, initiate Glucerna 1.2 @ 25ml/hr x 6hrs * Advance 10ml q 4-6 hrs as tolerated to goal rate. * Add Prosource 1pkt BID (additional 22g prot) to meet protein needs * HOB over 30 degrees/ water flush per MD ADDITIONAL RECOMMENDATIONS: * Calibrated bedscale wt * Monitor Propofol rate, need for TF adjustment-> now off * Monitor BGs closely : now improved, on NISS only * Pt w/ rectal tube- Colace and Miralax now dc'ed * Monitor NPO status: NGT feeds resumed . .
--- NOTE | 2020-07-18 09:57 | Pulmonology Progress Note ---
Subjective ROS Limited/Unobtainable: Yes Interval Events: S/p tracheostomy 07/04/20 Constitutional: Reports: fever, other - T=100 HEENT: Repors: no symptoms Respiratory: Reports: no symptoms Cardiovascular: Reports: no symptoms Gastrointestinal/Abdominal: Reports: no symptoms Genitourinary: Reports: no symptoms Allergies: Coded Allergies: No Known Allergies (Unverified , 05/28/20) All Systems: reviewed and negative except above Objective Last 24 Hour Vital Signs Date Time Temp Pulse Resp B/P (MAP) Pulse Ox O2 Delivery O2 Flow Rate FiO2 07/18/20 07:00 85 23 104/70 (81) 100 07/18/20 07:00 23 104/70 Mechanical Ventilator 40 07/18/20 07:00 23 104/70 Mechanical Ventilator 40 07/18/20 06:30 104 68 07/18/20 06:00 98.9 93 22 104/68 (80) 100 07/18/20 06:00 22 104/68 Mechanical Ventilator 65 07/18/20 06:00 22 104/68 Mechanical Ventilator 40 07/18/20 05:30 31 115/63 Mechanical Ventilator 31.0 40 07/18/20 05:00 104 28 107/72 (84) 94 07/18/20 05:00 28 107/72 Mechanical Ventilator 40 07/18/20 04:54 94 22 40 07/18/20 04:00 100 26 103/65 (78) 100 07/18/20 04:00 Mechanical Ventilator Mechanical Ventilator 07/18/20 04:00 26 103/65 Mechanical Ventilator 40 07/18/20 04:00 40 07/18/20 04:00 100 07/18/20 03:30 102 22 40 07/18/20 03:00 101 25 109/65 (80) 96 07/18/20 03:00 25 109/65 Mechanical Ventilator 40 07/18/20 02:00 100 28 102/71 (81) 99 07/18/20 02:00 28 102/71 Non-Rebreather 40 07/18/20 02:00 22 93/55 Mechanical Ventilator 40 07/18/20 01:13 101 23 40 07/18/20 01:00 101 25 101/61 (74) 96 07/18/20 01:00 25 101/61 Mechanical Ventilator 40 07/18/20 01:00 25 101/61 Mechanical Ventilator 40 07/18/20 00:00 99.1 87 19 91/57 (68) 100 07/18/20 00:00 Mechanical Ventilator Mechanical Ventilator 07/18/20 00:00 19 91/57 Mechanical Ventilator 40 07/18/20 00:00 19 91/57 Mechanical Ventilator 40 07/18/20 00:00 87 07/18/20 00:00 40 07/17/20 23:16 93 21 40 07/17/20 23:00 23 92/62 Mechanical Ventilator 65 07/17/20 23:00 23 92/62 Mechanical Ventilator 40 07/17/20 23:00 95 23 92/62 (72) 98 07/17/20 22:30 98 22 97/70 (79) 99 07/17/20 22:15 85/60 07/17/20 22:15 98 22 85/60 (68) 98 07/17/20 22:00 101 23 88/53 (65) 99 07/17/20 22:00 23 88/53 Mechanical Ventilator 40 07/17/20 22:00 23 88/53 Mechanical Ventilator 40 07/17/20 21:30 103 21 40 07/17/20 21:00 20 93/51 Mechanical Ventilator 40.0 07/17/20 21:00 20 93/51 Mechanical Ventilator 40 07/17/20 21:00 99 20 93/51 (65) 99 07/17/20 20:00 21 88/58 Mechanical Ventilator 40 07/17/20 20:00 21 88/58 Mechanical Ventilator 40 07/17/20 20:00 Mechanical Ventilator Mechanical Ventilator 07/17/20 20:00 40 07/17/20 20:00 98.7 96 21 88/58 (68) 99 07/17/20 20:00 96 07/17/20 19:30 95 22 40 07/17/20 19:00 19 84/56 Mechanical Ventilator 40 07/17/20 19:00 19 84/56 40 07/17/20 19:00 87 19 84/56 (65) 100 07/17/20 18:30 87 22 97/59 (72) 100 07/17/20 18:00 19 96/62 Mechanical Ventilator 40 07/17/20 18:00 19 96/62 Mechanical Ventilator 40 07/17/20 18:00 86 19 96/62 (73) 100 2/24/21 17:14 86 20 90/60 (70) 100 07/17/20 17:00 23 98/55 Mechanical Ventilator 40 07/17/20 17:00 23 98/65 Mechanical Ventilator 40 07/17/20 17:00 91 21 93/63 (73) 100 07/17/20 16:00 Mechanical Ventilator Mechanical Ventilator 07/17/20 16:00 40 07/17/20 16:00 99 07/17/20 16:00 27 111/69 Mechanical Ventilator 40 07/17/20 16:00 27 111/69 Mechanical Ventilator 40 07/17/20 16:00 98.7 98 19 107/69 (82) 100 07/17/20 15:00 86 20 90/60 (70) 100 07/17/20 15:00 22 90/60 Mechanical Ventilator 40 07/17/20 15:00 22 90/60 Mechanical Ventilator 40 07/17/20 14:40 101 28 60 07/17/20 14:00 105 27 92/57 (69) 99 07/17/20 14:00 22 97/57 Mechanical Ventilator 40 07/17/20 14:00 22 97/57 Mechanical Ventilator 40 07/17/20 13:30 99.4 101 23 101/67 (78) 99 07/17/20 13:00 111 30 108/68 (81) 97 07/17/20 13:00 29 107/58 Mechanical Ventilator 40 07/17/20 13:00 29 107/58 Mechanical Ventilator 40 07/17/20 12:30 102 22 91/53 (66) 99 07/17/20 12:00 40 07/17/20 12:00 21 94/59 Mechanical Ventilator 40 07/17/20 12:00 21 94/59 Mechanical Ventilator 40 07/17/20 12:00 110 07/17/20 12:00 Mechanical Ventilator Mechanical Ventilator 07/17/20 12:00 103 21 94/59 (71) 99 07/17/20 11:38 20 90/60 Mechanical Ventilator 40 07/17/20 11:30 109 22 100/48 (65) 98 07/17/20 11:00 109 22 98/59 (72) 98 07/17/20 11:00 24 98/59 Mechanical Ventilator 40 07/17/20 11:00 24 98/59 Mechanical Ventilator 40 07/17/20 10:45 98 32 60 07/17/20 10:30 110 24 92/65 (74) 97 07/17/20 10:00 129 29 107/67 (80) 78 07/17/20 10:00 27 99/50 Mechanical Ventilator 40 07/17/20 10:00 27 99/50 Mechanical Ventilator 40 Intake and Output 07/17/20 07/18/20 19:00 07:00 Intake Total 1260 ml 1080.625 ml Output Total 450 ml 480 ml Balance 810 ml 600.625 ml Free Water 180 ml IV Total 360 ml 360.625 ml Tube Feeding 720 ml 720 ml Output Urine Total 450 ml 480 ml # Bowel Movements 6 6 General Appearance: no acute distress HEENT: normocephalic, status post trach Respiratory: chest wall non-tender Cardiovascular: normal peripheral pulses Abdomen: normal bowel sounds Laboratory Tests 07/18/20 04:32: White Blood Count 10.2, Red Blood Count 3.20L, Hemoglobin 8.9L, Hematocrit 29.4L , Mean Corpuscular Volume 92, Mean Corpuscular Hemoglobin 27.8, Mean Corpuscular Hemoglobin Concent 30.3L, Red Cell Distribution Width 17.1H, Platelet Count 348, Mean Platelet Volume 7.1, Neutrophils (%) (Auto) 52.8, Lymphocytes (%) (Auto) 30.2, Monocytes (%) (Auto) 7.2, Eosinophils (%) (Auto) 8.8H, Basophils (%) (Auto) 1.0, Sodium Level 138, Potassium Level 3.3L, Chloride Level 95L, Carbon Dioxide Level 37H, Anion Gap 6, Blood Urea Nitrogen 18, Creatinine 0.5L, Estimat Glomerular Filtration Rate > 60, Glucose Level 116H, Calcium Level 10.1 Current Medications Medications (Trade) Dose Ordered Sig/Zelda Route PRN Reason Start Time Stop Time Status Last Admin Dose Admin Acetaminophen (Tylenol) 650 mg Q4H PRN NG Temp >100.5 06/29/20 10:15 07/29/20 10:14 07/08/20 18:26 Acetaminophen (Tylenol) 650 mg Q6H PRN NG Mild Pain (Pain Scale 1-3) 06/29/20 10:15 07/29/20 10:14 Chlorhexidine Gluconate (Inna-Hex 2%) 1 applic DAILY@1999 TOPIC 05/30/20 20:00 08/28/20 19:59 07/17/20 20:03 Dextrose (Dextrose 50%) 25 ml Q30M PRN IV Hypoglycemia 06/05/20 10:45 09/03/20 10:44 Dextrose (Dextrose 50%) 50 ml Q30M PRN IV Hypoglycemia 06/05/20 10:45 09/03/20 10:44 Enoxaparin Sodium (Lovenox) 110 mg EVERY 12 HOURS SUBQ 07/17/20 21:00 10/15/20 20:59 07/18/20 08:58 Fentanyl Citrate 250 ml @ 8 mls/hr Q24H IV 07/18/20 05:30 07/20/20 05:29 07/18/20 05:30 Furosemide (Lasix) 40 mg DAILY IV 06/22/20 09:00 07/22/20 08:59 07/18/20 08:57 Guaifenesin/ Codeine Phosphate (Robitussin with codeine) 5 ml Q6H PRN NG For Cough 07/14/20 14:15 08/13/20 14:14 07/15/20 11:05 Lansoprazole (Prevacid) 30 mg DAILY GT 07/18/20 09:00 08/09/20 08:59 07/18/20 08:56 Midazolam HCl 200 ml @ 0 mls/hr Q24H PRN IV To Patient Comfort 07/17/20 12:00 07/24/20 11:59 07/17/20 23:00 Midodrine (Pro-Amatine) 10 mg Q8HR GT 06/30/20 14:00 09/12/20 13:59 07/18/20 06:00 Norepinephrine Bitartrate 250 ml @ 7.5 mls/hr Q24H IV 07/17/20 22:15 07/20/20 22:05 07/17/20 22:15 Potassium Chloride 100 ml @ 50 mls/hr ONCE ONCE IVPB 07/18/20 09:00 07/18/20 10:59 07/18/20 08:57 Potassium Chloride (K-Dur) 40 meq TWICE A DAY GT 07/17/20 12:15 10/15/20 12:14 07/18/20 08:56 Quetiapine Fumarate (SEROqueL) 50 mg Q12HR GT 07/16/20 13:30 4/9/21 13:29 07/18/20 08:57 Vitamin D (Vitamin D) 5,000 unit DAILY GT 06/28/20 09:00 07/28/20 08:59 07/18/20 08:57 Assessment/Plan Assessment/Plan 1. COVID-19 pneumonia -Intubated 05/28/20 - We will continue broad-spectrum antibiotics. -s/p solumedrol, Rocephin -Continue PEEP 6 ->7 - Peak airway pressures high; 38 - FiO2 100% -> 90 ->80->60 ->40 ->80 ->100 ->70 ->60 -> 50 ->45 - >40%; PEEP 7 ->5 -will continue OGT feeding 2. Hyponatremia -Per primary MD 3. Elevated inflammatory markers - has high D dimer; Lovenox re-started 4. Decreased PEEP Continue weaning efforts S/p trach Reported cuff leak per Rn/RT Discussed trach change with surgery Hold off for now... however noted loss of volumes on vent and high FiO2 requirements Off IV fluids Begin dc planning to subacute; will need to wean down O2 further prior to transf er On low dose Levophed; will attempt to wean off Will wean off IV sedation; started Seroquel Needs PEG Javier Nava MD Jul 18, 2020 09:57
--- NOTE | 2020-07-18 10:00 | NUR ---
NURSE NOTES: AM meds were administered. Oral care was done. Pt repositioned for comfort. KCL 20meq IV administered per order to replace K=3.3 from this AM labs. VS remain stable while maintained on Fentanyl + Versed drips for RASS score of -2 light sedation.
--- NOTE | 2020-07-18 10:05 | NUR ---
NURSE NOTES: Levophed drip titrated down to zero and no placed on hold since SBP remains above 90 and VS remain within normal range.
--- NOTE | 2020-07-18 10:37 | Nephrology Progress Note ---
Assessment/Plan Problem List: (1) DEVENDRA (acute kidney injury) (2) Morbid obesity (3) Diabetes mellitus out of control (4) Pneumonia due to COVID-19 virus (5) Respiratory failure Assessment Acute renal failure Obstructive uropathy, clogged Lennon Respiratory failure COVID-19 pneumonia Morbid obesity Plan July 18: Status quo. Labs reviewed. Low potassium addressed. Continue per consultants. Remains full code. July 17: Remains full code. Trach to vent. FiO2 40%. Labs reviewed. Low potassium addressed. Continue per consultants. July 16: Status quo. FiO2 45%. Discussed with RN. Continue to taper her mind altering medications and sedatives. Stable from renal standpoint of view. Abnormal electrolytes addressed. July 15: Full code. FiO2 50%. Intubated on ventilator. No labs drawn today. Continue per consultants. July 14: Status quo. FiO2 50%. Labs reviewed. Renal parameters stable. Continue per current treatment plan and consultants. Medication list reviewed. July 13: FiO2 60% unchanged. Labs reviewed. Renal parameters stable. Medication list reviewed. Continue per consultants. July 12: Full code. Labs reviewed. Normal electrolytes addressed. Continue per pulmonary. Medication list reviewed. July 11: Remains full code. On ventilator. FiO2 down to 65%. Renal parameters stable. Low magnesium addressed. Continue her current management. July 10: Full code. On ventilator. FiO2 70%. Hemoglobin mid sevens. Renal parameters stable. Continue per consultants. July 09: Labs reviewed. Renal parameters stable. FiO2 80% unchanged. Continue per pulmonary. July 08: Labs reviewed. Renal parameters and electrolytes stable. ABG suggestive of high PCO2. At this time patient is on FiO2 of 80%. Continue per pulmonary. Continue to monitor renal parameters. July 07: No CHEM panel drawn today. More potassium given. Continue to monitor renal parameters. Continue per consultants. Discussed with RAKEL Veras. July 06: Low potassium addressed. Albumin bolus for low BP given. Patient remains full code. Continue to monitor electrolytes and renal parameters. Continue per consultants. 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 July 05: Trach to vent. FiO2 80%. Renal parameters stable. PCO2 remains high at 44. Continue to monitor renal parameters. July 04: Patient now trach. Full code. Labs reviewed. Renal parameters stable. Low magnesium addressed. July 03: Intubated. Full code. Labs reviewed. Abnormal electrolytes addressed. Continue per consultants. Overall status unchanged. July 02: Remains intubated. Remains full code. Remains on FiO2 of 70%. Labs reviewed. Abnormal electrolytes addressed. Continue per pulmonary. July 01: Remains on 70% FiO2. Full code. Intubated on ventilator. Retaining CO2. Discussed with RN. Will do ABG today. Albumin bolus given. 1 dose of Diamox given. June 30: Status quo. Labs reviewed. Abnormal electrolytes addressed. Remains full code. Remains on ventilator. Magnesium sulfate 4 gram IVPB given. June 29: Full code. Intubated on ventilator. Labs reviewed. Stable from renal standpoint of view. Continue per consultants. June 28: Remains full code. Remains intubated on ventilator. Labs reviewed. Vitamin D supplement ordered. Continue to monitor renal parameters. Continue per consultants. June 27: Remains full code. Intubated on ventilator. Labs reviewed. Abnormal electrolyte addressed. Continue to monitor renal parameters and electrolytes. Continue per consultants. June 26: Labs reviewed. Remains full code. Remains intubated. Back on NGT feeding. Continue to monitor renal parameters. June 25: Labs reviewed. Renal parameters stable. Remains full code. Due to positional status patient could not be fed via NG tube. Starting TPN? Is being entertained. Continue per consultants. June 24: Labs reviewed. Renal parameters stable. Remains full code. Remains intubated on ventilator. Continue per consultants. June 23: Labs reviewed. Renal parameters stable. Discussed with RN. Abnormal electrolyte addressed. Remains full code. Remains on ventilator. Continue per consultants. June 22: Labs reviewed. Low potassium addressed. Discussed with RAKEL Moran. Patient full code. Remains on ventilator. Continue to monitor renal parameters. June 21. Labs reviewed. Abnormal electrolyte addressed. Full code. Remains on ventilator. Medication list reviewed. Continue per pulmonary management. DC IV fluid, resume Lasix daily, check chest x-ray. June 20: Labs reviewed. Abnormal electrolytes. Patient remains full code. Continue per consultants. Noted and addressed June 19: Labs reviewed. Abnormal electrolytes noted and addressed. Remains intubated on ventilator. Remains full code. June 18: Labs reviewed. Remains intubated on ventilator. Full code. Abnormal electrolyte addressed. Continue as is. June 17: Labs reviewed. Abnormal electrolytes addressed. Patient remains full code and intubated on ventilator. Continue per consultants. Renal parameters are within normal limits. June 16: Labs reviewed. Potassium chloride replaced. Remains full code. Remains intubated on ventilator. Continue per consultants. Continue to monitor renal parameters. June 15: Labs reviewed. Serum creatinine 1. Stable from renal standpoint to view. Continue per consultants. June 14: Labs reviewed. Full code. Serum creatinine of 3.5 down to 1.4. Low potassium addressed. Continue per current treatment plan. Continue to monitor renal parameters. Midodrine started. Albumin bolus given. Previously: DC Lasix drip Increase Protonix dose Monitor renal parameters, electrolytes Per orders Subjective ROS Limited/Unobtainable: Yes Objective Objective Last 24 Hour Vital Signs Date Time Temp Pulse Resp B/P (MAP) Pulse Ox O2 Delivery O2 Flow Rate FiO2 07/18/20 10:00 94 24 110/69 (83) 100 07/18/20 09:30 97 34 114/75 (88) 98 07/18/20 09:30 24 110/69 Mechanical Ventilator 40 07/18/20 09:00 89 24 102/60 (74) 100 07/18/20 08:30 91 26 112/71 (85) 98 07/18/20 08:00 88 07/18/20 08:00 98.9 113 38 122/77 (92) 81 07/18/20 08:00 40 07/18/20 08:00 Mechanical Ventilator Mechanical Ventilator 07/18/20 07:00 85 23 104/70 (81) 100 07/18/20 07:00 23 104/70 Mechanical Ventilator 40 07/18/20 07:00 23 104/70 Mechanical Ventilator 40 07/18/20 06:30 104 68 07/18/20 06:00 98.9 93 22 104/68 (80) 100 07/18/20 06:00 22 104/68 Mechanical Ventilator 65 07/18/20 06:00 22 104/68 Mechanical Ventilator 40 07/18/20 05:30 31 115/63 Mechanical Ventilator 31.0 40 07/18/20 05:00 104 28 107/72 (84) 94 07/18/20 05:00 28 107/72 Mechanical Ventilator 40 07/18/20 04:54 94 22 40 07/18/20 04:00 100 26 103/65 (78) 100 07/18/20 04:00 Mechanical Ventilator Mechanical Ventilator 07/18/20 04:00 26 103/65 Mechanical Ventilator 40 07/18/20 04:00 40 07/18/20 04:00 100 07/18/20 03:30 102 22 40 07/18/20 03:00 101 25 109/65 (80) 96 07/18/20 03:00 25 109/65 Mechanical Ventilator 40 07/18/20 02:00 100 28 102/71 (81) 99 07/18/20 02:00 28 102/71 Non-Rebreather 40 07/18/20 02:00 22 93/55 Mechanical Ventilator 40 07/18/20 01:13 101 23 40 07/18/20 01:00 101 25 101/61 (74) 96 07/18/20 01:00 25 101/61 Mechanical Ventilator 40 07/18/20 01:00 25 101/61 Mechanical Ventilator 40 07/18/20 00:00 99.1 87 19 91/57 (68) 100 07/18/20 00:00 Mechanical Ventilator Mechanical Ventilator 07/18/20 00:00 19 91/57 Mechanical Ventilator 40 07/18/20 00:00 19 91/57 Mechanical Ventilator 40 07/18/20 00:00 87 07/18/20 00:00 40 07/17/20 23:16 93 21 40 07/17/20 23:00 23 92/62 Mechanical Ventilator 65 07/17/20 23:00 23 92/62 Mechanical Ventilator 40 07/17/20 23:00 95 23 92/62 (72) 98 07/17/20 22:30 98 22 97/70 (79) 99 07/17/20 22:15 85/60 07/17/20 22:15 98 22 85/60 (68) 98 07/17/20 22:00 101 23 88/53 (65) 99 07/17/20 22:00 23 88/53 Mechanical Ventilator 40 07/17/20 22:00 23 88/53 Mechanical Ventilator 40 07/17/20 21:30 103 21 40 07/17/20 21:00 20 93/51 Mechanical Ventilator 40.0 07/17/20 21:00 20 93/51 Mechanical Ventilator 40 07/17/20 21:00 99 20 93/51 (65) 99 07/17/20 20:00 21 88/58 Mechanical Ventilator 40 07/17/20 20:00 21 88/58 Mechanical Ventilator 40 07/17/20 20:00 Mechanical Ventilator Mechanical Ventilator 07/17/20 20:00 40 07/17/20 20:00 98.7 96 21 88/58 (68) 99 07/17/20 20:00 96 07/17/20 19:30 95 22 40 07/17/20 19:00 19 84/56 Mechanical Ventilator 40 07/17/20 19:00 19 84/56 40 07/17/20 19:00 87 19 84/56 (65) 100 07/17/20 18:30 87 22 97/59 (72) 100 07/17/20 18:00 19 96/62 Mechanical Ventilator 40 07/17/20 18:00 19 96/62 Mechanical Ventilator 40 07/17/20 18:00 86 19 96/62 (73) 100 07/17/20 17:14 86 20 90/60 (70) 100 07/17/20 17:00 23 98/55 Mechanical Ventilator 40 07/17/20 17:00 23 98/65 Mechanical Ventilator 40 07/17/20 17:00 91 21 93/63 (73) 100 07/17/20 16:00 Mechanical Ventilator Mechanical Ventilator 07/17/20 16:00 40 07/17/20 16:00 99 07/17/20 16:00 27 111/69 Mechanical Ventilator 40 07/17/20 16:00 27 111/69 Mechanical Ventilator 40 07/17/20 16:00 98.7 98 19 107/69 (82) 100 07/17/20 15:00 86 20 90/60 (70) 100 07/17/20 15:00 22 90/60 Mechanical Ventilator 40 07/17/20 15:00 22 90/60 Mechanical Ventilator 40 07/17/20 14:40 101 28 60 07/17/20 14:00 105 27 92/57 (69) 99 07/17/20 14:00 22 97/57 Mechanical Ventilator 40 07/17/20 14:00 22 97/57 Mechanical Ventilator 40 07/17/20 13:30 99.4 101 23 101/67 (78) 99 07/17/20 13:00 111 30 108/68 (81) 97 07/17/20 13:00 29 107/58 Mechanical Ventilator 40 07/17/20 13:00 29 107/58 Mechanical Ventilator 40 07/17/20 12:30 102 22 91/53 (66) 99 07/17/20 12:00 40 07/17/20 12:00 21 94/59 Mechanical Ventilator 40 07/17/20 12:00 21 94/59 Mechanical Ventilator 40 07/17/20 12:00 110 07/17/20 12:00 Mechanical Ventilator Mechanical Ventilator 07/17/20 12:00 103 21 94/59 (71) 99 07/17/20 11:38 20 90/60 Mechanical Ventilator 40 07/17/20 11:30 109 22 100/48 (65) 98 07/17/20 11:00 109 22 98/59 (72) 98 07/17/20 11:00 24 98/59 Mechanical Ventilator 40 07/17/20 11:00 24 98/59 Mechanical Ventilator 40 07/17/20 10:45 98 32 60 Intake and Output 07/17/20 07/18/20 19:00 07:00 Intake Total 1260 ml 1080.625 ml Output Total 450 ml 480 ml Balance 810 ml 600.625 ml Free Water 180 ml IV Total 360 ml 360.625 ml Tube Feeding 720 ml 720 ml Output Urine Total 450 ml 480 ml # Bowel Movements 6 6 Current Medications Medications (Trade) Dose Ordered Sig/Zelda Route PRN Reason Start Time Stop Time Status Last Admin Dose Admin Acetaminophen (Tylenol) 650 mg Q4H PRN NG Temp >100.5 06/29/20 10:15 07/29/20 10:14 07/08/20 18:26 Acetaminophen (Tylenol) 650 mg Q6H PRN NG Mild Pain (Pain Scale 1-3) 06/29/20 10:15 07/29/20 10:14 Chlorhexidine Gluconate (Inna-Hex 2%) 1 applic DAILY@2000 TOPIC 05/30/20 20:00 08/28/20 19:59 07/17/20 20:03 Dextrose (Dextrose 50%) 25 ml Q30M PRN IV Hypoglycemia 06/05/20 10:45 09/03/20 10:44 Dextrose (Dextrose 50%) 50 ml Q30M PRN IV Hypoglycemia 06/05/20 10:45 09/03/20 10:44 Enoxaparin Sodium (Lovenox) 110 mg EVERY 12 HOURS SUBQ 07/17/20 21:00 10/15/20 20:59 07/18/20 08:58 Fentanyl Citrate 250 ml @ 8 mls/hr Q24H IV 07/18/20 05:30 07/20/20 05:29 07/18/20 05:30 Furosemide (Lasix) 40 mg DAILY IV 06/22/20 09:00 07/22/20 08:59 07/18/20 08:57 Guaifenesin/ Codeine Phosphate (Robitussin with codeine) 5 ml Q6H PRN NG For Cough 07/14/20 14:15 08/13/20 14:14 07/15/20 11:05 Lansoprazole (Prevacid) 30 mg DAILY GT 07/18/20 09:00 08/09/20 08:59 07/18/20 08:56 Midazolam HCl 200 ml @ 0 mls/hr Q24H PRN IV To Patient Comfort 07/17/20 12:00 07/24/20 11:59 07/18/20 09:30 Midodrine (Pro-Amatine) 10 mg Q8HR GT 06/30/20 14:00 09/12/20 13:59 07/18/20 06:00 Norepinephrine Bitartrate 250 ml @ 7.5 mls/hr Q24H IV 07/17/20 22:15 07/20/20 22:05 07/17/20 22:15 Potassium Chloride 100 ml @ 50 mls/hr ONCE ONCE IVPB 07/18/20 09:00 07/18/20 10:59 07/18/20 08:57 Potassium Chloride (K-Dur) 40 meq TWICE A DAY GT 07/17/20 12:15 10/15/20 12:14 07/18/20 08:56 Quetiapine Fumarate (SEROqueL) 50 mg Q12HR GT 07/16/20 13:30 08/30/20 13:29 07/18/20 08:57 Vitamin D (Vitamin D) 5,000 unit DAILY GT 06/28/20 09:00 07/28/20 08:59 07/18/20 08:57 Laboratory Tests 07/18/20 04:32: White Blood Count 10.2, Red Blood Count 3.20L, Hemoglobin 8.9L, Hematocrit 29.4L , Mean Corpuscular Volume 92, Mean Corpuscular Hemoglobin 27.8, Mean Corpuscular Hemoglobin Concent 30.3L, Red Cell Distribution Width 17.1H, Platelet Count 348, Mean Platelet Volume 7.1, Neutrophils (%) (Auto) 52.8, Lymphocytes (%) (Auto) 30.2, Monocytes (%) (Auto) 7.2, Eosinophils (%) (Auto) 8.8H, Basophils (%) (Auto) 1.0, Sodium Level 138, Potassium Level 3.3L, Chloride Level 95L, Carbon Dioxide Level 37H, Anion Gap 6, Blood Urea Nitrogen 18, Creatinine 0.5L, Estimat Glomerular Filtration Rate > 60, Glucose Level 116H, Calcium Level 10.1 Height (Feet): 5 Height (Inches): 6.00 Weight (Pounds): 239 General Appearance: no apparent distress EENT: other - Trach to vent Cardiovascular: tachycardia Respiratory/Chest: decreased breath sounds Abdomen: distended Rigo Tyler MD Jul 18, 2020 10:36
--- NOTE | 2020-07-18 10:55 | Cardiac Electrophysiology PN ---
Assessment/Plan Assessment/Plan 1. Respiratory failure due to COVID-19 pneumonia. On tracheostomy and is on the ventilator 40% FiO2. Echo EF 60% 2. Right lower extremity DVT. Follow up by Hematology. May need IVC filter placement. 3. Hypotension, on midodrine 10 mg 3 times daily. On Lasix 40 IV daily 4. Dysphagia. Likely will need PEG DW RN Subjective Subjective In ICU on the Vent via Trach 40% Fio2 in SR. No events PEG pending Objective Last 24 Hour Vital Signs Date Time Temp Pulse Resp B/P (MAP) Pulse Ox O2 Delivery O2 Flow Rate FiO2 07/18/20 10:00 27 115/75 Mechanical Ventilator 40 07/18/20 10:00 27 115/75 Mechanical Ventilator 40 07/18/20 10:00 94 24 110/69 (83) 100 07/18/20 09:30 97 34 114/75 (88) 98 07/18/20 09:30 24 110/69 Mechanical Ventilator 40 07/18/20 09:00 89 24 102/60 (74) 100 07/18/20 09:00 25 100/65 Mechanical Ventilator 40 07/18/20 09:00 25 100/65 Mechanical Ventilator 40 07/18/20 08:30 91 26 112/71 (85) 98 07/18/20 08:00 88 07/18/20 08:00 98.9 113 38 122/77 (92) 81 07/18/20 08:00 27 118/73 Mechanical Ventilator 40 07/18/20 08:00 27 118/73 Mechanical Ventilator 40 07/18/20 08:00 40 07/18/20 08:00 Mechanical Ventilator Mechanical Ventilator 07/18/20 07:00 85 23 104/70 (81) 100 07/18/20 07:00 23 104/70 Mechanical Ventilator 40 07/18/20 07:00 23 104/70 Mechanical Ventilator 40 07/18/20 06:30 104 68 07/18/20 06:00 98.9 93 22 104/68 (80) 100 07/18/20 06:00 22 104/68 Mechanical Ventilator 65 07/18/20 06:00 22 104/68 Mechanical Ventilator 40 07/18/20 05:30 31 115/63 Mechanical Ventilator 31.0 40 07/18/20 05:00 104 28 107/72 (84) 94 07/18/20 05:00 28 107/72 Mechanical Ventilator 40 07/18/20 04:54 94 22 40 07/18/20 04:00 100 26 103/65 (78) 100 07/18/20 04:00 Mechanical Ventilator Mechanical Ventilator 07/18/20 04:00 26 103/65 Mechanical Ventilator 40 07/18/20 04:00 40 07/18/20 04:00 100 07/18/20 03:30 102 22 40 07/18/20 03:00 101 25 109/65 (80) 96 07/18/20 03:00 25 109/65 Mechanical Ventilator 40 07/18/20 02:00 100 28 102/71 (81) 99 07/18/20 02:00 28 102/71 Non-Rebreather 40 07/18/20 02:00 22 93/55 Mechanical Ventilator 40 07/18/20 01:13 101 23 40 07/18/20 01:00 101 25 101/61 (74) 96 07/18/20 01:00 25 101/61 Mechanical Ventilator 40 07/18/20 01:00 25 101/61 Mechanical Ventilator 40 07/18/20 00:00 99.1 87 19 91/57 (68) 100 07/18/20 00:00 Mechanical Ventilator Mechanical Ventilator 07/18/20 00:00 19 91/57 Mechanical Ventilator 40 07/18/20 00:00 19 91/57 Mechanical Ventilator 40 07/18/20 00:00 87 07/18/20 00:00 40 07/17/20 23:16 93 21 40 07/17/20 23:00 23 92/62 Mechanical Ventilator 65 07/17/20 23:00 23 92/62 Mechanical Ventilator 40 07/17/20 23:00 95 23 92/62 (72) 98 07/17/20 22:30 98 22 97/70 (79) 99 07/17/20 22:15 85/60 07/17/20 22:15 98 22 85/60 (68) 98 07/17/20 22:00 101 23 88/53 (65) 99 07/17/20 22:00 23 88/53 Mechanical Ventilator 40 07/17/20 22:00 23 88/53 Mechanical Ventilator 40 07/17/20 21:30 103 21 40 07/17/20 21:00 20 93/51 Mechanical Ventilator 40.0 07/17/20 21:00 20 93/51 Mechanical Ventilator 40 07/17/20 21:00 99 20 93/51 (65) 99 07/17/20 20:00 21 88/58 Mechanical Ventilator 40 07/17/20 20:00 21 88/58 Mechanical Ventilator 40 07/17/20 20:00 Mechanical Ventilator Mechanical Ventilator 07/17/20 20:00 40 07/17/20 20:00 98.7 96 21 88/58 (68) 99 07/17/20 20:00 96 07/17/20 19:30 95 22 40 07/17/20 19:00 19 84/56 Mechanical Ventilator 40 07/17/20 19:00 19 84/56 40 07/17/20 19:00 87 19 84/56 (65) 100 07/17/20 18:30 87 22 97/59 (72) 100 07/17/20 18:00 19 96/62 Mechanical Ventilator 40 07/17/20 18:00 19 96/62 Mechanical Ventilator 40 07/17/20 18:00 86 19 96/62 (73) 100 07/17/20 17:14 86 20 90/60 (70) 100 07/17/20 17:00 23 98/55 Mechanical Ventilator 40 07/17/20 17:00 23 98/65 Mechanical Ventilator 40 07/17/20 17:00 91 21 93/63 (73) 100 07/17/20 16:00 Mechanical Ventilator Mechanical Ventilator 07/17/20 16:00 40 07/17/20 16:00 99 07/17/20 16:00 27 111/69 Mechanical Ventilator 40 07/17/20 16:00 27 111/69 Mechanical Ventilator 40 07/17/20 16:00 98.7 98 19 107/69 (82) 100 07/17/20 15:00 86 20 90/60 (70) 100 07/17/20 15:00 22 90/60 Mechanical Ventilator 40 07/17/20 15:00 22 90/60 Mechanical Ventilator 40 07/17/20 14:40 101 28 60 07/17/20 14:00 105 27 92/57 (69) 99 07/17/20 14:00 22 97/57 Mechanical Ventilator 40 07/17/20 14:00 22 97/57 Mechanical Ventilator 40 07/17/20 13:30 99.4 101 23 101/67 (78) 99 07/17/20 13:00 111 30 108/68 (81) 97 07/17/20 13:00 29 107/58 Mechanical Ventilator 40 07/17/20 13:00 29 107/58 Mechanical Ventilator 40 07/17/20 12:30 102 22 91/53 (66) 99 07/17/20 12:00 40 07/17/20 12:00 21 94/59 Mechanical Ventilator 40 07/17/20 12:00 21 94/59 Mechanical Ventilator 40 07/17/20 12:00 110 07/17/20 12:00 Mechanical Ventilator Mechanical Ventilator 07/17/20 12:00 103 21 94/59 (71) 99 07/17/20 11:38 20 90/60 Mechanical Ventilator 40 07/17/20 11:30 109 22 100/48 (65) 98 07/17/20 11:00 109 22 98/59 (72) 98 07/17/20 11:00 24 98/59 Mechanical Ventilator 40 07/17/20 11:00 24 98/59 Mechanical Ventilator 40 Intake and Output 07/17/20 07/18/20 19:00 07:00 Intake Total 1260 ml 1080.625 ml Output Total 450 ml 480 ml Balance 810 ml 600.625 ml Free Water 180 ml IV Total 360 ml 360.625 ml Tube Feeding 720 ml 720 ml Output Urine Total 450 ml 480 ml # Bowel Movements 6 6 Laboratory Tests Test 07/18/20 04:32 White Blood Count 10.2 K/UL (4.8-10.8) Red Blood Count 3.20 M/UL (4.20-5.40) L Hemoglobin 8.9 G/DL (12.0-16.0) L Hematocrit 29.4 % (37.0-47.0) L Mean Corpuscular Volume 92 FL (80-99) Mean Corpuscular Hemoglobin 27.8 PG (27.0-31.0) Mean Corpuscular Hemoglobin Concent 30.3 G/DL (32.0-36.0) L Red Cell Distribution Width 17.1 % (11.6-14.8) H Platelet Count 348 K/UL (150-450) Mean Platelet Volume 7.1 FL (6.5-10.1) Neutrophils (%) (Auto) 52.8 % (45.0-75.0) Lymphocytes (%) (Auto) 30.2 % (20.0-45.0) Monocytes (%) (Auto) 7.2 % (1.0-10.0) Eosinophils (%) (Auto) 8.8 % (0.0-3.0) H Basophils (%) (Auto) 1.0 % (0.0-2.0) Sodium Level 138 MMOL/L (136-145) Potassium Level 3.3 MMOL/L (3.5-5.1) L Chloride Level 95 MMOL/L (98-107) L Carbon Dioxide Level 37 MMOL/L (21-32) H Anion Gap 6 mmol/L (5-15) Blood Urea Nitrogen 18 mg/dL (7-18) Creatinine 0.5 MG/DL (0.55-1.30) L Estimat Glomerular Filtration Rate > 60 mL/min (>60) Glucose Level 116 MG/DL (74-106) H Calcium Level 10.1 MG/DL (8.5-10.1) Objective HEAD AND NECK: Shows status post tracheostomy.NGT in place LUNGS: Coarse rhonchi. CARDIOVASCULAR: Shows regular S1 and S2 with no gallop. ABDOMEN: Soft. EXTREMITIES: Have 1+ pitting edema. Hill Burger MD Jul 18, 2020 10:55
--- NOTE | 2020-07-18 11:18 | Infectious Diseases Prog Note ---
Assessment/Plan Assessment/Plan A 1. COVID19 pneumonia 2. Hypoxic respiratory failure 3. Morbid obesity 4. DM type with hyperglycemia 5. Thrombocytopenia 6. leukocytosis resolved 7. Serratia pneumonia treated 8. Anemia 9. VDRF 10. postoperative fever resolved P 1. Finished remdesivir course 2. Finished steroid course 3. Waiting for GT placement Subjective ROS Limited/Unobtainable: Yes Allergies: Coded Allergies: No Known Allergies (Unverified , 05/28/20) Objective Last 24 Hour Vital Signs Date Time Temp Pulse Resp B/P (MAP) Pulse Ox O2 Delivery O2 Flow Rate FiO2 07/18/20 10:00 27 115/75 Mechanical Ventilator 40 07/18/20 10:00 27 115/75 Mechanical Ventilator 40 07/18/20 10:00 94 24 110/69 (83) 100 07/18/20 09:30 97 34 114/75 (88) 98 07/18/20 09:30 24 110/69 Mechanical Ventilator 40 07/18/20 09:00 89 24 102/60 (74) 100 07/18/20 09:00 25 100/65 Mechanical Ventilator 40 07/18/20 09:00 25 100/65 Mechanical Ventilator 40 07/18/20 08:30 91 26 112/71 (85) 98 07/18/20 08:00 88 07/18/20 08:00 98.9 113 38 122/77 (92) 81 07/18/20 08:00 27 118/73 Mechanical Ventilator 40 07/18/20 08:00 27 118/73 Mechanical Ventilator 40 07/18/20 08:00 40 07/18/20 08:00 Mechanical Ventilator Mechanical Ventilator 07/18/20 07:00 85 23 104/70 (81) 100 07/18/20 07:00 23 104/70 Mechanical Ventilator 40 07/18/20 07:00 23 104/70 Mechanical Ventilator 40 07/18/20 06:30 104 68 07/18/20 06:00 98.9 93 22 104/68 (80) 100 07/18/20 06:00 22 104/68 Mechanical Ventilator 65 07/18/20 06:00 22 104/68 Mechanical Ventilator 40 07/18/20 05:30 31 115/63 Mechanical Ventilator 31.0 40 07/18/20 05:00 104 28 107/72 (84) 94 07/18/20 05:00 28 107/72 Mechanical Ventilator 40 07/18/20 04:54 94 22 40 07/18/20 04:00 100 26 103/65 (78) 100 07/18/20 04:00 Mechanical Ventilator Mechanical Ventilator 07/18/20 04:00 26 103/65 Mechanical Ventilator 40 07/18/20 04:00 40 07/18/20 04:00 100 07/18/20 03:30 102 22 40 07/18/20 03:00 101 25 109/65 (80) 96 07/18/20 03:00 25 109/65 Mechanical Ventilator 40 07/18/20 02:00 100 28 102/71 (81) 99 07/18/20 02:00 28 102/71 Non-Rebreather 40 07/18/20 02:00 22 93/55 Mechanical Ventilator 40 07/18/20 01:13 101 23 40 07/18/20 01:00 101 25 101/61 (74) 96 07/18/20 01:00 25 101/61 Mechanical Ventilator 40 07/18/20 01:00 25 101/61 Mechanical Ventilator 40 07/18/20 00:00 99.1 87 19 91/57 (68) 100 07/18/20 00:00 Mechanical Ventilator Mechanical Ventilator 07/18/20 00:00 19 91/57 Mechanical Ventilator 40 07/18/20 00:00 19 91/57 Mechanical Ventilator 40 07/18/20 00:00 87 07/18/20 00:00 40 07/17/20 23:16 93 21 40 07/17/20 23:00 23 92/62 Mechanical Ventilator 65 07/17/20 23:00 23 92/62 Mechanical Ventilator 40 07/17/20 23:00 95 23 92/62 (72) 98 07/17/20 22:30 98 22 97/70 (79) 99 07/17/20 22:15 85/60 07/17/20 22:15 98 22 85/60 (68) 98 07/17/20 22:00 101 23 88/53 (65) 99 07/17/20 22:00 23 88/53 Mechanical Ventilator 40 07/17/20 22:00 23 88/53 Mechanical Ventilator 40 07/17/20 21:30 103 21 40 07/17/20 21:00 20 93/51 Mechanical Ventilator 40.0 07/17/20 21:00 20 93/51 Mechanical Ventilator 40 07/17/20 21:00 99 20 93/51 (65) 99 07/17/20 20:00 21 88/58 Mechanical Ventilator 40 07/17/20 20:00 21 88/58 Mechanical Ventilator 40 07/17/20 20:00 Mechanical Ventilator Mechanical Ventilator 07/17/20 20:00 40 07/17/20 20:00 98.7 96 21 88/58 (68) 99 07/17/20 20:00 96 07/17/20 19:30 95 22 40 07/17/20 19:00 19 84/56 Mechanical Ventilator 40 07/17/20 19:00 19 84/56 40 07/17/20 19:00 87 19 84/56 (65) 100 07/17/20 18:30 87 22 97/59 (72) 100 07/17/20 18:00 19 96/62 Mechanical Ventilator 40 07/17/20 18:00 19 96/62 Mechanical Ventilator 40 07/17/20 18:00 86 19 96/62 (73) 100 07/17/20 17:14 86 20 90/60 (70) 100 07/17/20 17:00 23 98/55 Mechanical Ventilator 40 07/17/20 17:00 23 98/65 Mechanical Ventilator 40 07/17/20 17:00 91 21 93/63 (73) 100 07/17/20 16:00 Mechanical Ventilator Mechanical Ventilator 07/17/20 16:00 40 07/17/20 16:00 99 07/17/20 16:00 27 111/69 Mechanical Ventilator 40 07/17/20 16:00 27 111/69 Mechanical Ventilator 40 07/17/20 16:00 98.7 98 19 107/69 (82) 100 07/17/20 15:00 86 20 90/60 (70) 100 07/17/20 15:00 22 90/60 Mechanical Ventilator 40 07/17/20 15:00 22 90/60 Mechanical Ventilator 40 07/17/20 14:40 101 28 60 07/17/20 14:00 105 27 92/57 (69) 99 07/17/20 14:00 22 97/57 Mechanical Ventilator 40 07/17/20 14:00 22 97/57 Mechanical Ventilator 40 07/17/20 13:30 99.4 101 23 101/67 (78) 99 07/17/20 13:00 111 30 108/68 (81) 97 07/17/20 13:00 29 107/58 Mechanical Ventilator 40 07/17/20 13:00 29 107/58 Mechanical Ventilator 40 07/17/20 12:30 102 22 91/53 (66) 99 07/17/20 12:00 40 07/17/20 12:00 21 94/59 Mechanical Ventilator 40 07/17/20 12:00 21 94/59 Mechanical Ventilator 40 07/17/20 12:00 110 07/17/20 12:00 Mechanical Ventilator Mechanical Ventilator 07/17/20 12:00 103 21 94/59 (71) 99 07/17/20 11:38 20 90/60 Mechanical Ventilator 40 07/17/20 11:30 109 22 100/48 (65) 98 Height (Feet): 5 Height (Inches): 6.00 Weight (Pounds): 239 HEENT: status post trach Respiratory/Chest: lungs clear, other - on ventilator , FIO2=40% Cardiovascular: tachycardia, other - R femoral line, on Levophed Abdomen: soft, non tender, other - NG tube Neurologic/Psychiatric: other - sedated Laboratory Tests Test 07/18/20 04:32 White Blood Count 10.2 K/UL (4.8-10.8) Red Blood Count 3.20 M/UL (4.20-5.40) L Hemoglobin 8.9 G/DL (12.0-16.0) L Hematocrit 29.4 % (37.0-47.0) L Mean Corpuscular Volume 92 FL (80-99) Mean Corpuscular Hemoglobin 27.8 PG (27.0-31.0) Mean Corpuscular Hemoglobin Concent 30.3 G/DL (32.0-36.0) L Red Cell Distribution Width 17.1 % (11.6-14.8) H Platelet Count 348 K/UL (150-450) Mean Platelet Volume 7.1 FL (6.5-10.1) Neutrophils (%) (Auto) 52.8 % (45.0-75.0) Lymphocytes (%) (Auto) 30.2 % (20.0-45.0) Monocytes (%) (Auto) 7.2 % (1.0-10.0) Eosinophils (%) (Auto) 8.8 % (0.0-3.0) H Basophils (%) (Auto) 1.0 % (0.0-2.0) Sodium Level 138 MMOL/L (136-145) Potassium Level 3.3 MMOL/L (3.5-5.1) L Chloride Level 95 MMOL/L (98-107) L Carbon Dioxide Level 37 MMOL/L (21-32) H Anion Gap 6 mmol/L (5-15) Blood Urea Nitrogen 18 mg/dL (7-18) Creatinine 0.5 MG/DL (0.55-1.30) L Estimat Glomerular Filtration Rate > 60 mL/min (>60) Glucose Level 116 MG/DL (74-106) H Calcium Level 10.1 MG/DL (8.5-10.1) Current Medications Medications (Trade) Dose Ordered Sig/Zelda Route PRN Reason Start Time Stop Time Status Last Admin Dose Admin Acetaminophen (Tylenol) 650 mg Q4H PRN NG Temp >100.5 06/29/20 10:15 07/29/20 10:14 07/08/20 18:26 Acetaminophen (Tylenol) 650 mg Q6H PRN NG Mild Pain (Pain Scale 1-3) 06/29/20 10:15 07/29/20 10:14 Chlorhexidine Gluconate (Inna-Hex 2%) 1 applic DAILY@2000 TOPIC 05/30/20 20:00 08/28/20 19:59 07/17/20 20:03 Dextrose (Dextrose 50%) 25 ml Q30M PRN IV Hypoglycemia 06/05/20 10:45 09/03/20 10:44 Dextrose (Dextrose 50%) 50 ml Q30M PRN IV Hypoglycemia 06/05/20 10:45 09/03/20 10:44 Enoxaparin Sodium (Lovenox) 110 mg EVERY 12 HOURS SUBQ 07/17/20 21:00 10/15/20 20:59 07/18/20 08:58 Fentanyl Citrate 250 ml @ 8 mls/hr Q24H IV 07/18/20 05:30 07/20/20 05:29 07/18/20 05:30 Furosemide (Lasix) 40 mg DAILY IV 06/22/20 09:00 07/22/20 08:59 07/18/20 08:57 Guaifenesin/ Codeine Phosphate (Robitussin with codeine) 5 ml Q6H PRN NG For Cough 07/14/20 14:15 08/13/20 14:14 07/15/20 11:05 Lansoprazole (Prevacid) 30 mg DAILY GT 07/18/20 09:00 08/09/20 08:59 07/18/20 08:56 Midazolam HCl 200 ml @ 0 mls/hr Q24H PRN IV To Patient Comfort 07/17/20 12:00 07/24/20 11:59 07/18/20 09:30 Midodrine (Pro-Amatine) 10 mg Q8HR GT 06/30/20 14:00 09/12/20 13:59 07/18/20 06:00 Norepinephrine Bitartrate 250 ml @ 7.5 mls/hr Q24H IV 07/17/20 22:15 07/20/20 22:05 07/17/20 22:15 Potassium Chloride (K-Dur) 40 meq TWICE A DAY GT 07/17/20 12:15 10/15/20 12:14 07/18/20 08:56 Quetiapine Fumarate (SEROqueL) 50 mg Q12HR GT 07/16/20 13:30 08/30/20 13:29 07/18/20 08:57 Vitamin D (Vitamin D) 5,000 unit DAILY GT 06/28/20 09:00 07/28/20 08:59 07/18/20 08:57 Colt Arana MD Jul 18, 2020 11:18
--- NOTE | 2020-07-18 11:20 | Surgery Progress Note ---
Surgery Progress Note Subjective Procedure Performed right femoral central venous line insertion Symptoms: improved Additional Comments peg placement placement has doing much better Objective Last 24 Hour Vital Signs Date Time Temp Pulse Resp B/P (MAP) Pulse Ox O2 Delivery O2 Flow Rate FiO2 07/18/20 10:00 27 115/75 Mechanical Ventilator 40 07/18/20 10:00 27 115/75 Mechanical Ventilator 40 07/18/20 10:00 94 24 110/69 (83) 100 07/18/20 09:30 97 34 114/75 (88) 98 07/18/20 09:30 24 110/69 Mechanical Ventilator 40 07/18/20 09:00 89 24 102/60 (74) 100 07/18/20 09:00 25 100/65 Mechanical Ventilator 40 07/18/20 09:00 25 100/65 Mechanical Ventilator 40 07/18/20 08:30 91 26 112/71 (85) 98 07/18/20 08:00 88 07/18/20 08:00 98.9 113 38 122/77 (92) 81 07/18/20 08:00 27 118/73 Mechanical Ventilator 40 07/18/20 08:00 27 118/73 Mechanical Ventilator 40 07/18/20 08:00 40 07/18/20 08:00 Mechanical Ventilator Mechanical Ventilator 07/18/20 07:00 85 23 104/70 (81) 100 07/18/20 07:00 23 104/70 Mechanical Ventilator 40 07/18/20 07:00 23 104/70 Mechanical Ventilator 40 07/18/20 06:30 104 68 07/18/20 06:00 98.9 93 22 104/68 (80) 100 07/18/20 06:00 22 104/68 Mechanical Ventilator 65 07/18/20 06:00 22 104/68 Mechanical Ventilator 40 07/18/20 05:30 31 115/63 Mechanical Ventilator 31.0 40 07/18/20 05:00 104 28 107/72 (84) 94 07/18/20 05:00 28 107/72 Mechanical Ventilator 40 07/18/20 04:54 94 22 40 07/18/20 04:00 100 26 103/65 (78) 100 07/18/20 04:00 Mechanical Ventilator Mechanical Ventilator 07/18/20 04:00 26 103/65 Mechanical Ventilator 40 07/18/20 04:00 40 07/18/20 04:00 100 07/18/20 03:30 102 22 40 07/18/20 03:00 101 25 109/65 (80) 96 07/18/20 03:00 25 109/65 Mechanical Ventilator 40 07/18/20 02:00 100 28 102/71 (81) 99 07/18/20 02:00 28 102/71 Non-Rebreather 40 07/18/20 02:00 22 93/55 Mechanical Ventilator 40 07/18/20 01:13 101 23 40 07/18/20 01:00 101 25 101/61 (74) 96 07/18/20 01:00 25 101/61 Mechanical Ventilator 40 07/18/20 01:00 25 101/61 Mechanical Ventilator 40 07/18/20 00:00 99.1 87 19 91/57 (68) 100 07/18/20 00:00 Mechanical Ventilator Mechanical Ventilator 07/18/20 00:00 19 91/57 Mechanical Ventilator 40 07/18/20 00:00 19 91/57 Mechanical Ventilator 40 07/18/20 00:00 87 07/18/20 00:00 40 07/17/20 23:16 93 21 40 07/17/20 23:00 23 92/62 Mechanical Ventilator 65 07/17/20 23:00 23 92/62 Mechanical Ventilator 40 07/17/20 23:00 95 23 92/62 (72) 98 07/17/20 22:30 98 22 97/70 (79) 99 07/17/20 22:15 85/60 07/17/20 22:15 98 22 85/60 (68) 98 07/17/20 22:00 101 23 88/53 (65) 99 07/17/20 22:00 23 88/53 Mechanical Ventilator 40 07/17/20 22:00 23 88/53 Mechanical Ventilator 40 07/17/20 21:30 103 21 40 07/17/20 21:00 20 93/51 Mechanical Ventilator 40.0 07/17/20 21:00 20 93/51 Mechanical Ventilator 40 07/17/20 21:00 99 20 93/51 (65) 99 07/17/20 20:00 21 88/58 Mechanical Ventilator 40 07/17/20 20:00 21 88/58 Mechanical Ventilator 40 07/17/20 20:00 Mechanical Ventilator Mechanical Ventilator 07/17/20 20:00 40 07/17/20 20:00 98.7 96 21 88/58 (68) 99 07/17/20 20:00 96 07/17/20 19:30 95 22 40 07/17/20 19:00 19 84/56 Mechanical Ventilator 40 07/17/20 19:00 19 84/56 40 07/17/20 19:00 87 19 84/56 (65) 100 07/17/20 18:30 87 22 97/59 (72) 100 07/17/20 18:00 19 96/62 Mechanical Ventilator 40 07/17/20 18:00 19 96/62 Mechanical Ventilator 40 07/17/20 18:00 86 19 96/62 (73) 100 07/17/20 17:14 86 20 90/60 (70) 100 07/17/20 17:00 23 98/55 Mechanical Ventilator 40 07/17/20 17:00 23 98/65 Mechanical Ventilator 40 07/17/20 17:00 91 21 93/63 (73) 100 07/17/20 16:00 Mechanical Ventilator Mechanical Ventilator 07/17/20 16:00 40 07/17/20 16:00 99 07/17/20 16:00 27 111/69 Mechanical Ventilator 40 07/17/20 16:00 27 111/69 Mechanical Ventilator 40 07/17/20 16:00 98.7 98 19 107/69 (82) 100 07/17/20 15:00 86 20 90/60 (70) 100 07/17/20 15:00 22 90/60 Mechanical Ventilator 40 07/17/20 15:00 22 90/60 Mechanical Ventilator 40 07/17/20 14:40 101 28 60 07/17/20 14:00 105 27 92/57 (69) 99 07/17/20 14:00 22 97/57 Mechanical Ventilator 40 07/17/20 14:00 22 97/57 Mechanical Ventilator 40 07/17/20 13:30 99.4 101 23 101/67 (78) 99 07/17/20 13:00 111 30 108/68 (81) 97 07/17/20 13:00 29 107/58 Mechanical Ventilator 40 07/17/20 13:00 29 107/58 Mechanical Ventilator 40 07/17/20 12:30 102 22 91/53 (66) 99 07/17/20 12:00 40 07/17/20 12:00 21 94/59 Mechanical Ventilator 40 07/17/20 12:00 21 94/59 Mechanical Ventilator 40 07/17/20 12:00 110 07/17/20 12:00 Mechanical Ventilator Mechanical Ventilator 07/17/20 12:00 103 21 94/59 (71) 99 07/17/20 11:38 20 90/60 Mechanical Ventilator 40 07/17/20 11:30 109 22 100/48 (65) 98 I&O Intake and Output 07/17/20 07/18/20 18:59 06:59 Intake Total 1260 ml 1073.125 ml Output Total 435 ml 480 ml Balance 825 ml 593.125 ml Free Water 180 ml IV Total 360 ml 353.125 ml Tube Feeding 720 ml 720 ml Output Urine Total 435 ml 480 ml # Bowel Movements 6 6 Cardiovascular: RSR Respiratory: clear, decreased breath sounds Abdomen: soft, non-tender, present bowel sounds Extremities: edema, no cyanosis, other Laboratory Tests Test 07/18/20 04:32 White Blood Count 10.2 K/UL (4.8-10.8) Red Blood Count 3.20 M/UL (4.20-5.40) L Hemoglobin 8.9 G/DL (12.0-16.0) L Hematocrit 29.4 % (37.0-47.0) L Mean Corpuscular Volume 92 FL (80-99) Mean Corpuscular Hemoglobin 27.8 PG (27.0-31.0) Mean Corpuscular Hemoglobin Concent 30.3 G/DL (32.0-36.0) L Red Cell Distribution Width 17.1 % (11.6-14.8) H Platelet Count 348 K/UL (150-450) Mean Platelet Volume 7.1 FL (6.5-10.1) Neutrophils (%) (Auto) 52.8 % (45.0-75.0) Lymphocytes (%) (Auto) 30.2 % (20.0-45.0) Monocytes (%) (Auto) 7.2 % (1.0-10.0) Eosinophils (%) (Auto) 8.8 % (0.0-3.0) H Basophils (%) (Auto) 1.0 % (0.0-2.0) Sodium Level 138 MMOL/L (136-145) Potassium Level 3.3 MMOL/L (3.5-5.1) L Chloride Level 95 MMOL/L (98-107) L Carbon Dioxide Level 37 MMOL/L (21-32) H Anion Gap 6 mmol/L (5-15) Blood Urea Nitrogen 18 mg/dL (7-18) Creatinine 0.5 MG/DL (0.55-1.30) L Estimat Glomerular Filtration Rate > 60 mL/min (>60) Glucose Level 116 MG/DL (74-106) H Calcium Level 10.1 MG/DL (8.5-10.1) Plan Problems: (1) Respiratory distress (2) Respiratory failure Assessment & Plan: 50-year-old female Covid positive respiratory insufficiency intubated on ventilatory support declining. Leukocytosis increase oxygen req uirement. Vent settings per pulmonology reviewed identified and agree. Unfortunately further surgical invention at this time is not appropriate as patient is not a candidate and her current condition. Prognosis overall guarded. Tracheostomy can be considered in the future if recovering or shows improvement and requires unable to be weaned from ventilator support. Currently okay for nutritional optimization with NG tube. Will need significant monitoring for decubitus formation given patient's size and condition. Okay for air mattress tolerated. Turn every 2 hours as tolerated. Patient is otherwise critically ill and blood pressure labile. Will need to monitor closely.Bilateral infiltrates are again demonstrated. Stable tube and line positions. will need trach will need to wean vent first no cuff leak trach okay Improving weaning well DC planning placement much improved peg placement (3) Hypoxia (4) Pneumonia due to COVID-19 virus Assessment & Plan: ++ as per pulm and ID (5) Diabetes mellitus out of control Assessment & Plan: DAILY ESTIMATED NEEDS: Needs based on Critical care, obesity 11-14kcal/kg actual body wt (140kg) kcals/kg 6358-1486 total kcals 1.5-2.0g prot/kg IBW (64.5kg) g protein/kg 96-129 g total protein 25-30ml/kg abw (83kg) mL/kg 2687-9342 total fluid mLs NUTRITION DIAGNOSIS: Swallowing difficulty R/T respiratory failure as evidenced by pt orally intubated and sedated, on OGT feeds. CURRENT TF: Vital 1.2 goal of 60ml/hr ENTERAL NUTRITION RECOMMENDATIONS: Vital AF 1.2 @ 60ml/hr x 24 hrs to provide 1440ml, 1728kcal, 108g prot, 1168ml free water * Maintain current critical care and carb controlled TF formula of Vital AF * TF @ goal meeds 100% est kcal/prot needs * HOB over 30 degrees/ water flush per MD TF may be lowered to 55ml/hr for improved BG control while maintaining Kcal and pro needs. ADDITIONAL RECOMMENDATIONS: * Calibrated bedscale wt * Monitor Propofol rate, need for TF adjustment-> now off * Monitor BGs closely : now improved, on novolog q 6rs + NISS * Monitor lytes- K elevated, monitor need for TF change * Rec bowel regimen- now w/ rectal tube . Az Devine Jul 18, 2020 11:19
--- NOTE | 2020-07-18 12:15 | NUR ---
NURSE NOTES: Pt was seen by Dr Burger. updated on current status. No new orders were received.
--- NOTE | 2020-07-18 12:47 | General Progress Note ---
Subjective ROS Limited/Unobtainable: No Allergies: Coded Allergies: No Known Allergies (Unverified , 05/28/20) Objective Last 24 Hour Vital Signs Date Time Temp Pulse Resp B/P (MAP) Pulse Ox O2 Delivery O2 Flow Rate FiO2 07/18/20 10:10 108 30 40 07/18/20 10:00 27 115/75 Mechanical Ventilator 40 07/18/20 10:00 27 115/75 Mechanical Ventilator 40 07/18/20 10:00 94 24 110/69 (83) 100 07/18/20 09:30 97 34 114/75 (88) 98 07/18/20 09:30 24 110/69 Mechanical Ventilator 40 07/18/20 09:00 89 24 102/60 (74) 100 07/18/20 09:00 25 100/65 Mechanical Ventilator 40 07/18/20 09:00 25 100/65 Mechanical Ventilator 40 07/18/20 08:30 91 26 112/71 (85) 98 07/18/20 08:00 88 07/18/20 08:00 98.9 113 38 122/77 (92) 81 07/18/20 08:00 27 118/73 Mechanical Ventilator 40 07/18/20 08:00 27 118/73 Mechanical Ventilator 40 07/18/20 08:00 40 07/18/20 08:00 Mechanical Ventilator Mechanical Ventilator 07/18/20 07:05 98 28 40 07/18/20 07:00 85 23 104/70 (81) 100 07/18/20 07:00 23 104/70 Mechanical Ventilator 40 07/18/20 07:00 23 104/70 Mechanical Ventilator 40 07/18/20 06:30 104 68 07/18/20 06:00 98.9 93 22 104/68 (80) 100 07/18/20 06:00 22 104/68 Mechanical Ventilator 65 07/18/20 06:00 22 104/68 Mechanical Ventilator 40 07/18/20 05:30 31 115/63 Mechanical Ventilator 31.0 40 07/18/20 05:00 104 28 107/72 (84) 94 07/18/20 05:00 28 107/72 Mechanical Ventilator 40 07/18/20 04:54 94 22 40 07/18/20 04:00 100 26 103/65 (78) 100 07/18/20 04:00 Mechanical Ventilator Mechanical Ventilator 07/18/20 04:00 26 103/65 Mechanical Ventilator 40 07/18/20 04:00 40 07/18/20 04:00 100 07/18/20 03:30 102 22 40 07/18/20 03:00 101 25 109/65 (80) 96 07/18/20 03:00 25 109/65 Mechanical Ventilator 40 07/18/20 02:00 100 28 102/71 (81) 99 07/18/20 02:00 28 102/71 Non-Rebreather 40 07/18/20 02:00 22 93/55 Mechanical Ventilator 40 07/18/20 01:13 101 23 40 07/18/20 01:00 101 25 101/61 (74) 96 07/18/20 01:00 25 101/61 Mechanical Ventilator 40 07/18/20 01:00 25 101/61 Mechanical Ventilator 40 07/18/20 00:00 99.1 87 19 91/57 (68) 100 07/18/20 00:00 Mechanical Ventilator Mechanical Ventilator 07/18/20 00:00 19 91/57 Mechanical Ventilator 40 07/18/20 00:00 19 91/57 Mechanical Ventilator 40 07/18/20 00:00 87 07/18/20 00:00 40 07/17/20 23:16 93 21 40 07/17/20 23:00 23 92/62 Mechanical Ventilator 65 07/17/20 23:00 23 92/62 Mechanical Ventilator 40 07/17/20 23:00 95 23 92/62 (72) 98 07/17/20 22:30 98 22 97/70 (79) 99 07/17/20 22:15 85/60 07/17/20 22:15 98 22 85/60 (68) 98 07/17/20 22:00 101 23 88/53 (65) 99 07/17/20 22:00 23 88/53 Mechanical Ventilator 40 07/17/20 22:00 23 88/53 Mechanical Ventilator 40 07/17/20 21:30 103 21 40 07/17/20 21:00 20 93/51 Mechanical Ventilator 40.0 07/17/20 21:00 20 93/51 Mechanical Ventilator 40 07/17/20 21:00 99 20 93/51 (65) 99 07/17/20 20:00 21 88/58 Mechanical Ventilator 40 07/17/20 20:00 21 88/58 Mechanical Ventilator 40 07/17/20 20:00 Mechanical Ventilator Mechanical Ventilator 07/17/20 20:00 40 07/17/20 20:00 98.7 96 21 88/58 (68) 99 07/17/20 20:00 96 07/17/20 19:30 95 22 40 07/17/20 19:00 19 84/56 Mechanical Ventilator 40 07/17/20 19:00 19 84/56 40 07/17/20 19:00 87 19 84/56 (65) 100 07/17/20 18:30 87 22 97/59 (72) 100 07/17/20 18:00 19 96/62 Mechanical Ventilator 40 07/17/20 18:00 19 96/62 Mechanical Ventilator 40 07/17/20 18:00 86 19 96/62 (73) 100 07/17/20 17:14 86 20 90/60 (70) 100 07/17/20 17:00 23 98/55 Mechanical Ventilator 40 07/17/20 17:00 23 98/65 Mechanical Ventilator 40 07/17/20 17:00 91 21 93/63 (73) 100 07/17/20 16:00 Mechanical Ventilator Mechanical Ventilator 07/17/20 16:00 40 07/17/20 16:00 99 07/17/20 16:00 27 111/69 Mechanical Ventilator 40 07/17/20 16:00 27 111/69 Mechanical Ventilator 40 07/17/20 16:00 98.7 98 19 107/69 (82) 100 07/17/20 15:00 86 20 90/60 (70) 100 07/17/20 15:00 22 90/60 Mechanical Ventilator 40 07/17/20 15:00 22 90/60 Mechanical Ventilator 40 07/17/20 14:40 101 28 60 07/17/20 14:00 105 27 92/57 (69) 99 07/17/20 14:00 22 97/57 Mechanical Ventilator 40 07/17/20 14:00 22 97/57 Mechanical Ventilator 40 07/17/20 13:30 99.4 101 23 101/67 (78) 99 07/17/20 13:00 111 30 108/68 (81) 97 07/17/20 13:00 29 107/58 Mechanical Ventilator 40 07/17/20 13:00 29 107/58 Mechanical Ventilator 40 Intake and Output 07/17/20 07/18/20 19:00 07:00 Intake Total 1260 ml 1080.625 ml Output Total 450 ml 480 ml Balance 810 ml 600.625 ml Free Water 180 ml IV Total 360 ml 360.625 ml Tube Feeding 720 ml 720 ml Output Urine Total 450 ml 480 ml # Bowel Movements 6 6 Laboratory Tests 07/18/20 04:32: White Blood Count 10.2, Red Blood Count 3.20L, Hemoglobin 8.9L, Hematocrit 29.4L , Mean Corpuscular Volume 92, Mean Corpuscular Hemoglobin 27.8, Mean Corpuscular Hemoglobin Concent 30.3L, Red Cell Distribution Width 17.1H, Platelet Count 348, Mean Platelet Volume 7.1, Neutrophils (%) (Auto) 52.8, Lymphocytes (%) (Auto) 30.2, Monocytes (%) (Auto) 7.2, Eosinophils (%) (Auto) 8.8H, Basophils (%) (Auto) 1.0, Sodium Level 138, Potassium Level 3.3L, Chloride Level 95L, Carbon Dioxide Level 37H, Anion Gap 6, Blood Urea Nitrogen 18, Creatinine 0.5L, Estimat Glomerular Filtration Rate > 60, Glucose Level 116H, Calcium Level 10.1 Height (Feet): 5 Height (Inches): 6.00 Weight (Pounds): 239 General Appearance: no apparent distress EENT: normal ENT inspection Neck: supple Cardiovascular: normal rate Respiratory/Chest: decreased breath sounds Abdomen: hypoactive bowel sounds Extremities: non-tender Assessment/Plan Problem List: (1) Morbid obesity ICD Codes: E66.01 - Morbid (severe) obesity due to excess calories SNOMED: 110203120 (2) DEVENDRA (acute kidney injury) ICD Codes: N17.9 - Acute kidney failure, unspecified SNOMED: 0575180, 19129766 (3) Diabetes mellitus out of control ICD Codes: E11.65 - Type 2 diabetes mellitus with hyperglycemia SNOMED: 76242956, 580860370 (4) Pneumonia due to COVID-19 virus ICD Codes: U07.1 - COVID-19; J12.82 - Pneumonia due to coronavirus disease 2019 SNOMED: 947868150199756092 (5) Hypoxia ICD Codes: R09.02 - Hypoxemia SNOMED: 136803395 (6) Respiratory failure ICD Codes: J96.90 - Respiratory failure, unspecified, unspecified whether with hypoxia or hypercapnia SNOMED: 217913207 Status: unchanged Assessment/Plan: NGTF plan PEG for tomorrow NPO pmn hold lovenox after mid night Ryan Strong MD Jul 18, 2020 12:47
--- NOTE | 2020-07-18 13:25 | General Progress Note ---
Subjective Allergies: Coded Allergies: No Known Allergies (Unverified , 05/28/20) All Systems: reviewed and negative except above Subjective trach vent ng in icu Objective Last 24 Hour Vital Signs Date Time Temp Pulse Resp B/P (MAP) Pulse Ox O2 Delivery O2 Flow Rate FiO2 07/18/20 12:00 92 07/18/20 10:10 108 30 40 07/18/20 10:00 27 115/75 Mechanical Ventilator 40 07/18/20 10:00 27 115/75 Mechanical Ventilator 40 07/18/20 10:00 94 24 110/69 (83) 100 07/18/20 09:30 97 34 114/75 (88) 98 07/18/20 09:30 24 110/69 Mechanical Ventilator 40 07/18/20 09:00 89 24 102/60 (74) 100 07/18/20 09:00 25 100/65 Mechanical Ventilator 40 07/18/20 09:00 25 100/65 Mechanical Ventilator 40 07/18/20 08:30 91 26 112/71 (85) 98 07/18/20 08:00 88 07/18/20 08:00 98.9 113 38 122/77 (92) 81 07/18/20 08:00 27 118/73 Mechanical Ventilator 40 07/18/20 08:00 27 118/73 Mechanical Ventilator 40 07/18/20 08:00 40 07/18/20 08:00 Mechanical Ventilator Mechanical Ventilator 07/18/20 07:05 98 28 40 07/18/20 07:00 85 23 104/70 (81) 100 07/18/20 07:00 23 104/70 Mechanical Ventilator 40 07/18/20 07:00 23 104/70 Mechanical Ventilator 40 07/18/20 06:30 104 68 07/18/20 06:00 98.9 93 22 104/68 (80) 100 07/18/20 06:00 22 104/68 Mechanical Ventilator 65 07/18/20 06:00 22 104/68 Mechanical Ventilator 40 07/18/20 05:30 31 115/63 Mechanical Ventilator 31.0 40 07/18/20 05:00 104 28 107/72 (84) 94 07/18/20 05:00 28 107/72 Mechanical Ventilator 40 07/18/20 04:54 94 22 40 07/18/20 04:00 100 26 103/65 (78) 100 07/18/20 04:00 Mechanical Ventilator Mechanical Ventilator 07/18/20 04:00 26 103/65 Mechanical Ventilator 40 07/18/20 04:00 40 07/18/20 04:00 100 07/18/20 03:30 102 22 40 07/18/20 03:00 101 25 109/65 (80) 96 07/18/20 03:00 25 109/65 Mechanical Ventilator 40 07/18/20 02:00 100 28 102/71 (81) 99 07/18/20 02:00 28 102/71 Non-Rebreather 40 07/18/20 02:00 22 93/55 Mechanical Ventilator 40 07/18/20 01:13 101 23 40 07/18/20 01:00 101 25 101/61 (74) 96 07/18/20 01:00 25 101/61 Mechanical Ventilator 40 07/18/20 01:00 25 101/61 Mechanical Ventilator 40 07/18/20 00:00 99.1 87 19 91/57 (68) 100 07/18/20 00:00 Mechanical Ventilator Mechanical Ventilator 07/18/20 00:00 19 91/57 Mechanical Ventilator 40 07/18/20 00:00 19 91/57 Mechanical Ventilator 40 07/18/20 00:00 87 07/18/20 00:00 40 07/17/20 23:16 93 21 40 07/17/20 23:00 23 92/62 Mechanical Ventilator 65 07/17/20 23:00 23 92/62 Mechanical Ventilator 40 07/17/20 23:00 95 23 92/62 (72) 98 07/17/20 22:30 98 22 97/70 (79) 99 07/17/20 22:15 85/60 07/17/20 22:15 98 22 85/60 (68) 98 07/17/20 22:00 101 23 88/53 (65) 99 07/17/20 22:00 23 88/53 Mechanical Ventilator 40 07/17/20 22:00 23 88/53 Mechanical Ventilator 40 07/17/20 21:30 103 21 40 07/17/20 21:00 20 93/51 Mechanical Ventilator 40.0 07/17/20 21:00 20 93/51 Mechanical Ventilator 40 07/17/20 21:00 99 20 93/51 (65) 99 07/17/20 20:00 21 88/58 Mechanical Ventilator 40 07/17/20 20:00 21 88/58 Mechanical Ventilator 40 07/17/20 20:00 Mechanical Ventilator Mechanical Ventilator 07/17/20 20:00 40 07/17/20 20:00 98.7 96 21 88/58 (68) 99 07/17/20 20:00 96 07/17/20 19:30 95 22 40 07/17/20 19:00 19 84/56 Mechanical Ventilator 40 07/17/20 19:00 19 84/56 40 07/17/20 19:00 87 19 84/56 (65) 100 07/17/20 18:30 87 22 97/59 (72) 100 07/17/20 18:00 19 96/62 Mechanical Ventilator 40 07/17/20 18:00 19 96/62 Mechanical Ventilator 40 07/17/20 18:00 86 19 96/62 (73) 100 07/17/20 17:14 86 20 90/60 (70) 100 07/17/20 17:00 23 98/55 Mechanical Ventilator 40 07/17/20 17:00 23 98/65 Mechanical Ventilator 40 07/17/20 17:00 91 21 93/63 (73) 100 07/17/20 16:00 Mechanical Ventilator Mechanical Ventilator 07/17/20 16:00 40 07/17/20 16:00 99 07/17/20 16:00 27 111/69 Mechanical Ventilator 40 07/17/20 16:00 27 111/69 Mechanical Ventilator 40 07/17/20 16:00 98.7 98 19 107/69 (82) 100 07/17/20 15:00 86 20 90/60 (70) 100 07/17/20 15:00 22 90/60 Mechanical Ventilator 40 07/17/20 15:00 22 90/60 Mechanical Ventilator 40 07/17/20 14:40 101 28 60 07/17/20 14:00 105 27 92/57 (69) 99 07/17/20 14:00 22 97/57 Mechanical Ventilator 40 07/17/20 14:00 22 97/57 Mechanical Ventilator 40 07/17/20 13:30 99.4 101 23 101/67 (78) 99 Intake and Output 07/17/20 07/18/20 19:00 07:00 Intake Total 1260 ml 1080.625 ml Output Total 450 ml 480 ml Balance 810 ml 600.625 ml Free Water 180 ml IV Total 360 ml 360.625 ml Tube Feeding 720 ml 720 ml Output Urine Total 450 ml 480 ml # Bowel Movements 6 6 Laboratory Tests 07/18/20 04:32: White Blood Count 10.2, Red Blood Count 3.20L, Hemoglobin 8.9L, Hematocrit 29.4L , Mean Corpuscular Volume 92, Mean Corpuscular Hemoglobin 27.8, Mean Corpuscular Hemoglobin Concent 30.3L, Red Cell Distribution Width 17.1H, Platelet Count 348, Mean Platelet Volume 7.1, Neutrophils (%) (Auto) 52.8, Lymphocytes (%) (Auto) 30.2, Monocytes (%) (Auto) 7.2, Eosinophils (%) (Auto) 8.8H, Basophils (%) (Auto) 1.0, Sodium Level 138, Potassium Level 3.3L, Chloride Level 95L, Carbon Dioxide Level 37H, Anion Gap 6, Blood Urea Nitrogen 18, Creatinine 0.5L, Estimat Glomerular Filtration Rate > 60, Glucose Level 116H, Calcium Level 10.1 Height (Feet): 5 Height (Inches): 6.00 Weight (Pounds): 239 General Appearance: lethargic EENT: normal ENT inspection Neck: normal alignment Cardiovascular: normal peripheral pulses, normal rate, regular rhythm Respiratory/Chest: chest wall non-tender, lungs clear, normal breath sounds Abdomen: normal bowel sounds, non tender, soft Extremities: normal inspection Edema: no edema noted Arm (L), no edema noted Arm (R), no edema noted Leg (L), no edema noted Leg (R), no edema noted Pedal (L), no edema noted Pedal (R), no edema noted Generalized Neurologic: motor weakness Skin: normal pigmentation, warm/dry Assessment/Plan Problem List: (1) Hypoxia ICD Codes: R09.02 - Hypoxemia SNOMED: 236752651 (2) Respiratory failure ICD Codes: J96.90 - Respiratory failure, unspecified, unspecified whether with hypoxia or hypercapnia SNOMED: 732607596 (3) Respiratory distress ICD Codes: R06.03 - Acute respiratory distress; J12.82 - Pneumonia due to coronavirus disease 2019 SNOMED: 588546904 (4) Pneumonia due to COVID-19 virus ICD Codes: U07.1 - COVID-19; J12.82 - Pneumonia due to coronavirus disease 2019 SNOMED: 630169866369784371 Status: unchanged Assessment/Plan: vent abx id pulm f/u cbc bmp am Tank DelC id DO Jul 18, 2020 13:25
--- NOTE | 2020-07-18 14:00 | NUR ---
NURSE NOTES: Dr. Strong contacted the nurse's station and was updated on pt's current status. Order noted for NPO/Hold feeds starting midnight tonight and plan for PEG placement for tomorrow per Dr. Strong. Telephone consent was received from the pt's family for PEG placement, and consent witnessed/verified by second nurse, Alfonzo ELLINGTON.
--- NOTE | 2020-07-18 15:03 | NUR ---
SPECIAL DELIVERY CLERK NOTES INQUIRY SENT TO [facility]. WILL FOLLOW UP WITH ACCEPTANCE.
--- NOTE | 2020-07-18 18:00 | NUR ---
NURSE NOTES: Pt had BM x1, large/soft/pasty/brown. Pt was cleaned, bed-bath given, gown/bed linens were changed. Repositioned for comfort. Oral care was done. VS remain stable while maintained sedated RASS score of -2 light sedation, continue same rate of Versed + Fentanyl drips.
--- NOTE | 2020-07-18 19:00 | NUR ---
Bed in low position, patient not in acute distress. Safety measures in place, tubes and lines assessed and secured. Refer to MAR for full assessment and trending vitals.
--- NOTE | 2020-07-18 19:30 | NUR ---
NURSE HAND-OFF REPORT: Latest Vital Signs: Temperature 98.7 , Pulse 118 , B/P 107 /64 , Respiratory Rate 38 , O2 SAT 91 , Mechanical Ventilator, trach to vent, Shiley 8, XLT with vent settings AC 15, VT600, Peep 5, FIO2 40%. Vital Sign Comment: Sedated while on Fentanyl and Versed drips for RASS of -2 light sedation. Levophed drip remains on hold. EKG Rhythm: Sinus Tachycardia Rhythm change?: Jesus TOLLIVER Notified?: Jesus EDWARDS MD Response: Latest Meyers Fall Score: 70 Fall Risk: High Risk Safety Measures: Call light Within Reach, Bed Alarm Zone 1, Side Rails Side Rails x2, Bed position Low and Locked. Fall Precautions: Yellow Socks Report given to Hanna ELLINGTON. Endorsed plan of care.
[2020-07-18] MEDS: Dyna-Hex 2% Top Sol 2oz TOPIC SCH (20:12)
[2020-07-18] MEDS: guaiFENesin w/Codeine 5ml Liq ud NG PRN (21:44)
[2020-07-18] MEDS: Acetaminophen 650mg/20.3ml NG PRN (21:45)
[2020-07-18] MEDS: Norepinephrine 4mg/NS Premix 250 ML IV SCH (22:15)
[2020-07-19] VITALS (44 sets, daily range): BP systolic 86–121; BP diastolic 49–93
[2020-07-19] MEDS: Versed 100mg/NS 200ml 200 ML IV PRN ×2 (05:03→14:11)
[2020-07-19 05:48] LABS: HEMATOCRIT 27.4 % (37.0-47.0); HEMOGLOBIN 8.6 G/DL (12.0-16.0); MEAN CORPUSCULAR VOLUME 90 FL (80-99); PLATELET COUNT 355 K/UL (150-450); RED BLOOD COUNT 3.03 M/UL (4.20-5.40); RED CELL DISTRIBUTION WIDTH 16.9 % (11.6-14.8); WHITE BLOOD COUNT 21.7 K/UL (4.8-10.8)
[2020-07-19 05:50] LABS: INR 1.2 (0.9-1.1)
[2020-07-19 06:01] LABS: ALANINE AMINOTRANSFERASE 27 U/L (12-78); ALBUMIN 2.3 G/DL (3.4-5.0); ALBUMIN/GLOBULIN RATIO 0.4 (1.0-2.7); ALKALINE PHOSPHATASE 80 U/L (46-116); ANION GAP 7 mmol/L (5-15); ASPARTATE AMINO TRANSFERASE 49 U/L (15-37); BILIRUBIN,TOTAL 0.7 MG/DL (0.2-1.0); BLOOD UREA NITROGEN 17 mg/dL (7-18); CALCIUM 9.9 MG/DL (8.5-10.1); CARBON DIOXIDE 36 MMOL/L (21-32); CHLORIDE 96 MMOL/L (98-107); CREATININE 0.6 MG/DL (0.55-1.30); PHOSPHORUS 4.5 MG/DL (2.5-4.9); POTASSIUM 3.5 MMOL/L (3.5-5.1); SODIUM 139 MMOL/L (136-145)
[2020-07-19] MEDS: Midodrine 10mg tab GT SCH ×3 (06:45→21:34)
--- NOTE | 2020-07-19 07:15 | NUR ---
NURSE NOTES: Report received from Hanna prakash RN.Pt awake on and off noted no resp distress with trach to vent,ordered vent settings tolerated,,no signs of discomfort presented,S-Tach on the monitor,NGT clamped,pt NPO for EGD,today,Lennon cath draning minimal urine output,Rectal tube not draining,skin warm and dry with IV to RT Femoral TLC with Fentanyl drip at 80 mcg/hr and Versed at 10 mg/hr,site intact,SR up x2 HOB elevated bed lock in lowest position ,will continue with plans of care.
[2020-07-19] MEDS: fentaNYL 2500mcg/NS 250ml 250 ML IV SCH ×3 (07:55→19:34)
[2020-07-19] MEDS: Acetaminophen 650mg/20.3ml NG PRN (07:59)
[2020-07-19] MEDS: Vitamin D 1000 units Tab GT SCH (09:00)
[2020-07-19] MEDS: Enoxaparin 120 mg inj SUBQ SCH ×2 (09:00→20:28)
--- NOTE | 2020-07-19 09:01 | Pulmonology Progress Note ---
Subjective ROS Limited/Unobtainable: No Interval Events: S/p tracheostomy Constitutional: Reports: fever, other - resolved HEENT: Repors: no symptoms Respiratory: Reports: no symptoms Cardiovascular: Reports: no symptoms Gastrointestinal/Abdominal: Reports: no symptoms Genitourinary: Reports: no symptoms Allergies: Coded Allergies: No Known Allergies (Unverified , 05/28/20) All Systems: reviewed and negative except above Objective Last 24 Hour Vital Signs Date Time Temp Pulse Resp B/P (MAP) Pulse Ox O2 Delivery O2 Flow Rate FiO2 07/19/20 08:00 27 100/57 Mechanical Ventilator 50 07/19/20 08:00 27 100/27 Mechanical Ventilator 50 07/19/20 07:55 20 104/63 Mechanical Ventilator 50 07/19/20 07:45 104 32 104/63 (77) 100 07/19/20 07:30 99 23 95/58 (70) 100 07/19/20 07:15 105 25 111/67 (82) 99 07/19/20 07:00 23 96/55 Mechanical Ventilator 50 07/19/20 07:00 23 96/55 Mechanical Ventilator 50 07/19/20 07:00 100 23 96/55 (69) 99 07/19/20 06:45 102 24 94/57 (69) 99 07/19/20 06:30 102 24 90/60 (70) 100 07/19/20 06:15 102 21 93/57 (69) 99 07/19/20 06:00 104 68 07/19/20 06:00 107 25 98 07/19/20 06:00 107 25 93/57 (69) 98 07/19/20 05:30 105 21 106/68 (81) 99 07/19/20 05:22 111 24 50 07/19/20 05:03 22 88/52 Mechanical Ventilator 50 07/19/20 05:00 105 22 88/52 (64) 98 07/19/20 04:30 107 22 86/56 (66) 98 07/19/20 04:00 113 07/19/20 04:00 40 07/19/20 04:00 113 26 95/57 (70) 98 07/19/20 04:00 Mechanical Ventilator Mechanical Ventilator 07/19/20 03:02 117 31 50 07/19/20 03:00 117 27 103/64 (77) 100 07/19/20 02:46 117 24 91/55 (67) 97 07/19/20 02:45 117 24 87/51 (63) 98 07/19/20 02:32 117 24 88/57 (67) 98 07/19/20 02:30 119 24 86/64 (71) 98 07/19/20 02:15 122 25 106/61 (76) 98 07/19/20 02:00 123 25 94/56 (69) 99 07/19/20 01:30 129 30 104/61 (75) 95 07/19/20 01:00 138 25 107/71 (83) 93 07/19/20 00:30 137 26 108/67 (81) 95 07/19/20 00:09 134 29 40 50 07/19/20 00:00 148 40 119/69 (86) 78 07/19/20 00:00 40 07/19/20 00:00 Mechanical Ventilator Mechanical Ventilator 07/19/20 00:00 148 07/18/20 23:30 139 36 124/68 (86) 92 07/18/20 23:00 146 32 120/69 (86) 84 07/18/20 22:53 143 31 40 40 07/18/20 22:30 145 31 111/76 (88) 86 07/18/20 22:00 136 42 127/71 (89) 90 07/18/20 21:30 133 26 117/75 (89) 82 07/18/20 21:20 120 36 40 40 07/18/20 21:00 127 23 125/69 (87) 83 07/18/20 20:30 111 21 100/67 (78) 96 07/18/20 20:00 111 07/18/20 20:00 111 27 103/64 (77) 96 07/18/20 20:00 27 103/64 Mechanical Ventilator 40 07/18/20 20:00 27 103/64 Mechanical Ventilator 40 07/18/20 20:00 40 07/18/20 20:00 Mechanical Ventilator Mechanical Ventilator 07/18/20 19:10 118 38 40 40 07/18/20 19:00 32 107/64 Mechanical Ventilator 40 07/18/20 19:00 32 107/64 Mechanical Ventilator 40 07/18/20 19:00 115 35 98/62 (74) 91 07/18/20 18:40 27 115/71 Mechanical Ventilator 40 07/18/20 18:30 120 27 115/71 (86) 85 07/18/20 18:00 29 98/61 Mechanical Ventilator 40 07/18/20 18:00 29 98/61 Mechanical Ventilator 40 07/18/20 18:00 109 31 101/60 (74) 98 07/18/20 17:30 119 26 95/73 (80) 90 07/18/20 17:00 100 22 105/67 (80) 98 07/18/20 17:00 27 100/68 Mechanical Ventilator 40 07/18/20 17:00 27 100/68 Mechanical Ventilator 40 07/18/20 16:00 98.7 100 29 104/71 (82) 98 07/18/20 16:00 103 07/18/20 16:00 40 07/18/20 16:00 Mechanical Ventilator Mechanical Ventilator 07/18/20 16:00 29 106/69 Mechanical Ventilator 40 07/18/20 16:00 29 106/69 Mechanical Ventilator 40 07/18/20 15:49 101 28 40 07/18/20 15:30 97 28 103/68 (80) 98 07/18/20 15:00 96 22 103/69 (80) 100 07/18/20 15:00 25 101/67 Mechanical Ventilator 40 07/18/20 15:00 25 101/67 Mechanical Ventilator 40 07/18/20 14:30 98 24 109/63 (78) 97 07/18/20 14:00 27 111/65 Mechanical Ventilator 40 07/18/20 14:00 27 111/65 Mechanical Ventilator 40 07/18/20 14:00 100 28 99/70 (80) 92 07/18/20 13:30 90 25 101/71 (81) 100 07/18/20 13:00 90 23 102/72 (82) 100 07/18/20 13:00 25 104/72 Mechanical Ventilator 40 07/18/20 13:00 25 104/72 40 07/18/20 12:30 90 23 109/67 (81) 100 07/18/20 12:00 98.8 94 28 107/68 (81) 100 07/18/20 12:00 Mechanical Ventilator Mechanical Ventilator 07/18/20 12:00 25 104/65 Mechanical Ventilator 40 07/18/20 12:00 25 104/65 Mechanical Ventilator 40 07/18/20 12:00 92 07/18/20 12:00 40 07/18/20 11:30 91 23 97/66 (76) 100 07/18/20 11:00 90 21 107/68 (81) 100 07/18/20 11:00 24 116/80 Mechanical Ventilator 40 07/18/20 11:00 24 116/80 Mechanical Ventilator 40 07/18/20 10:10 108 30 40 07/18/20 10:00 27 115/75 Mechanical Ventilator 40 07/18/20 10:00 27 115/75 Mechanical Ventilator 40 07/18/20 10:00 94 24 110/69 (83) 100 07/18/20 09:30 97 34 114/75 (88) 98 07/18/20 09:30 24 110/69 Mechanical Ventilator 40 07/18/20 09:00 89 24 102/60 (74) 100 07/18/20 09:00 25 100/65 Mechanical Ventilator 40 07/18/20 09:00 25 100/65 Mechanical Ventilator 40 Intake and Output 07/18/20 07/19/20 19:00 07:00 Intake Total 1313.5 ml 605 ml Output Total 550 ml 350 ml Balance 763.5 ml 255 ml Free Water 180 ml IV Total 413.5 ml 185 ml Tube Feeding 720 ml 420 ml Output Urine Total 550 ml 350 ml # Bowel Movements 6 3 General Appearance: no acute distress HEENT: normocephalic, status post trach Respiratory: chest wall non-tender Cardiovascular: normal peripheral pulses Abdomen: normal bowel sounds Laboratory Tests 07/19/20 03:50: White Blood Count 21.7#H, Red Blood Count 3.03L, Hemoglobin 8.6L, Hematocrit 27.4L, Mean Corpuscular Volume 90, Mean Corpuscular Hemoglobin 28.2, Mean Corpuscular Hemoglobin Concent 31.3L, Red Cell Distribution Width 16.9H, Platelet Count 355, Mean Platelet Volume 7.4, Neutrophils (%) (Auto) , Lymphocytes (%) (Auto) , Monocytes (%) (Auto) , Eosinophils (%) (Auto) , Basophils (%) (Auto) , Neutrophils % (Manual) [Pending], Lymphocytes % (Manual) [Pending], Platelet Estimate [Pending], Platelet Morphology [Pending], Prothrombin Time 13.3H, Prothromb Time International Ratio 1.2H, Sodium Level 139, Potassium Level 3.5, Chloride Level 96L, Carbon Dioxide Level 36H, Anion Gap 7, Blood Urea Nitrogen 17, Creatinine 0.6, Estimat Glomerular Filtration Rate > 60, Glucose Level 163H, Calcium Level 9.9, Phosphorus Level 4.5, Magnesium Level 1.5L, Total Bilirubin 0.7, Aspartate Amino Transf (AST/SGOT) 49H , Alanine Aminotransferase (ALT/SGPT) 27, Alkaline Phosphatase 80, Total Protein 7.7, Albumin 2.3L, Globulin 5.4, Albumin/Globulin Ratio 0.4L Current Medications Medications (Trade) Dose Ordered Sig/Zelda Route PRN Reason Start Time Stop Time Status Last Admin Dose Admin Acetaminophen (Tylenol) 650 mg Q4H PRN NG Temp >100.5 06/29/20 10:15 07/29/20 10:14 07/19/20 07:59 Acetaminophen (Tylenol) 650 mg Q6H PRN NG Mild Pain (Pain Scale 1-3) 06/29/20 10:15 07/29/20 10:14 Chlorhexidine Gluconate (Inna-Hex 2%) 1 applic DAILY@2000 TOPIC 05/30/20 20:00 08/28/20 19:59 07/18/20 20:12 Dextrose (Dextrose 50%) 25 ml Q30M PRN IV Hypoglycemia 06/05/20 10:45 09/03/20 10:44 Dextrose (Dextrose 50%) 50 ml Q30M PRN IV Hypoglycemia 06/05/20 10:45 09/03/20 10:44 Enoxaparin Sodium (Lovenox) 110 mg EVERY 12 HOURS SUBQ 07/17/20 21:00 10/15/20 20:59 07/18/20 21:15 Fentanyl Citrate 250 ml @ 8 mls/hr Q24H IV 07/18/20 05:30 07/20/20 05:29 07/19/20 07:55 Furosemide (Lasix) 40 mg DAILY IV 06/22/20 09:00 07/22/20 08:59 07/18/20 08:57 Guaifenesin/ Codeine Phosphate (Robitussin with codeine) 5 ml Q6H PRN NG For Cough 07/14/20 14:15 08/13/20 14:14 07/18/20 21:44 Lansoprazole (Prevacid) 30 mg DAILY GT 07/18/20 09:00 08/09/20 08:59 07/18/20 08:56 Midazolam HCl 200 ml @ 0 mls/hr Q24H PRN IV To Patient Comfort 07/17/20 12:00 07/24/20 11:59 07/19/20 05:03 Midodrine (Pro-Amatine) 10 mg Q8HR GT 06/30/20 14:00 09/12/20 13:59 07/19/20 06:45 Norepinephrine Bitartrate 250 ml @ 7.5 mls/hr Q24H IV 07/17/20 22:15 07/20/20 22:05 07/17/20 22:15 Potassium Chloride (K-Dur) 40 meq TWICE A DAY GT 07/17/20 12:15 10/15/20 12:14 07/18/20 17:11 Quetiapine Fumarate (SEROqueL) 50 mg Q12HR GT 07/16/20 13:30 08/30/20 13:29 07/18/20 21:13 Vitamin D (Vitamin D) 5,000 unit DAILY GT 06/28/20 09:00 07/28/20 08:59 07/18/20 08:57 Assessment/Plan Assessment/Plan 1. COVID-19 pneumonia -Intubated 05/28/20 - We will continue broad-spectrum antibiotics. -s/p solumedrol, Rocephin - Peak airway pressures high; 38 - FiO2 100% -> 90 ->80->60 ->40 ->80 ->100 ->70 ->60 -> 50 ->45 ->40 -> 50%; PEEP 7 ->5 -will continue OGT feeding 2. Hyponatremia -Per primary MD 3. Elevated inflammatory markers - has high D dimer; Lovenox re-started 4. Decreased PEEP Continue weaning efforts S/p trach Reported cuff leak per Rn/RT Discussed trach change with surgery Hold off for now... however noted loss of volumes on vent and high FiO2 requirements Off IV fluids Begin dc planning to subacute; will need to wean down O2 further prior to transfer Now off Levophed Will wean off IV sedation; started Seroquel Scheduled for PEG (07/19) Vamshi Garcia Jul 19, 2020 09:01
--- NOTE | 2020-07-19 09:11 | Hematology/Onc Progress Note ---
Assessment/Plan Assessment/Plan # Deep vein thrombosis of the right calf --> given onoing anemia and low plts --> consider ivc if bleeding--once stable, needs it placed --> once stable, for radiology and ivc filter placement # Thrombocytopenia is due to infection/underlying covid19+++ --> ABX ceftriaxone -->zosyn-->off --> on steriods likely cause of initial wbc --> per pulm --> plt 107->156-->192-->205 --> smear reviewed # Leukocytosis due to Pneumonia due to COVID-19 virus --> per pulm rx -> sp remdesivir --> wbc 11.9-->11-->21 # Anemia due to chronic disease --> hgb goal is >7 --> transfuse prn --> ferritin is >1000 --> hold off on iron --> 10-->9.8->9-->8-->8.2-->9.4-->8.1-->9.9-->9.6-->9.5-->9.6-->8.6 # Elevated ddimer due to covid19++ --> duplex legs is negative --> underlying covid rx # Hypoxia -> due to covid19 --> steriods as needed # Hypoxemia --> rx same as above # Respiratory failure --> on vent/trach --> per pulm # Diabetes mellitus out of control --> hgb a1c goal <7 # Poor prognosis # Dvt ppx ivc filter once more stable Appreciate consultation and bowen RN Subjective Genitourinary: Denies: no symptoms, burning, discharge, frequency, flank pain, hematuria, incontinence, pain, urgency, other Neurologic/Psychiatric: Denies: no symptoms, anxiety, depressed, emotional problems, headache, numbness, paresthesia, pre-existing deficit, seizure, tingling, tremors, weakness, other Endocrine: Denies: no symptoms, excessive sweating, flushing, intolerance to cold, intolerance to heat, increased hunger, increased thirst, increased urine, unexplained weight gain, unexplained weight loss, other Hematologic/Lymphatic: Denies: no symptoms, anemia, easy bleeding, easy bruising, adenopathy, other Allergies: Coded Allergies: No Known Allergies (Unverified , 05/28/20) Subjective 06/10 nv, on vent, with ogt, on fentanyl and versed, plt stable 06/11 nv, vent adjusted is on ogt, meds reviewed 06/12 nv, vent, meds noted, labs noted, no bleeding, hgb 10.4 06/13 nv, is on vent, meds reviewed, no bleeding, cbc reviewed 06/14 nv, on vent, tachy, labs reviewed, gross hematuria, febrile overnight, abx 06/17 nv, on vent, labs noted, no major changes, feeling better overnight 06/18 nv, meds reviewed, labs noted, no major events, hgb 8.6 06/19 nv, remains intubated, with fluids, labs reviewed, meds noted 06/20 nv, intubated remains on restraints, meds noted as well, as labs 06/21 nv, remains on vent, on restraints, meds reviewed, labs noted 06/22: covering Dr. Del Cid no acute events 06/23 sedated, on vent, nv, intubated, meds reviewed, versed 06/24 nv, on vent, no night sweats, no bleeding, remains in icu 06/25 nv, on vent, icu, meds noted, no bleeding, comfortable 06/26 nv, on versed, icu, weaning parameters, labs noted 06/27 nv, overnight fighting vent, as per pulm fentanyl on board 06/28 nv, on vent, labs reviewed, as per pulm, meds noted 06/30 nv, icu, labs pending, is on fentanyl, versed, no new changes 07/01 nv, icu, is on vent, labs pending, no new changes per rn 07/02 nv, icu is on vent, labs noted, hgb is stable 07/03 nv, icu, is on vent, potential trrach when stable, cbc reviewed 07/04 icu, nv, labs are noted, stable for trach today dw Rn Dl 07/05 icu, nv, on vent, with ng and picc in place, labs noted, s/p trach 07/07 icu, nv, on tv, no bleeding, labs noted, meds reviewed 07/08 icu, nv, on tv, labs reviewed, meds noted, no bleeding 07/09 icu, nv, meds noted, no bleeding, blood transfusion was completed 07/10 icu, nv, labs ntoed, no bleeding, hgb improved, hgb 7.8 07/11 icu, nv, labs reviewed, hgb is improved, for ivcf if stabilizes 07/12 icu, nv, labs reviewed, meds noted, no bleeding, remains on vent 07/13 icu, on vent, nv, no bleeding, labs reviewed, no major events, bowen rn 07/14 icu, on vent, nv, tolerating ngt feeds, dw Rn, meds reviewed 07/15 icu, on vent, trach, tolerating ngt, meds noted, no bleeding 07/16 icu, vent, labs are noted, with trach, is stable, hgb 9.2 07/17 icu, had a bm overnight, remains on vent with trach, labs noted 07/18 icu, nv, labs are ntoed, no bleeding, on trach, on levophed 07/20 nc, icu, meds noted, v/t, no bleeding, labs noted, on versed Objective Objective Current Medications Medications (Trade) Dose Ordered Sig/Zelda Route PRN Reason Start Time Stop Time Status Last Admin Dose Admin Acetaminophen (Tylenol) 650 mg Q4H PRN NG Temp >100.5 06/29/20 10:15 07/29/20 10:14 07/19/20 07:59 Acetaminophen (Tylenol) 650 mg Q6H PRN NG Mild Pain (Pain Scale 1-3) 06/29/20 10:15 07/29/20 10:14 Chlorhexidine Gluconate (Inna-Hex 2%) 1 applic DAILY@1999 TOPIC 05/30/20 20:00 08/28/20 19:59 07/18/20 20:12 Dextrose (Dextrose 50%) 25 ml Q30M PRN IV Hypoglycemia 06/05/20 10:45 09/03/20 10:44 Dextrose (Dextrose 50%) 50 ml Q30M PRN IV Hypoglycemia 06/05/20 10:45 09/03/20 10:44 Enoxaparin Sodium (Lovenox) 110 mg EVERY 12 HOURS SUBQ 07/17/20 21:00 10/15/20 20:59 07/18/20 21:15 Fentanyl Citrate 250 ml @ 8 mls/hr Q24H IV 07/18/20 05:30 07/20/20 05:29 07/19/20 07:55 Furosemide (Lasix) 40 mg DAILY IV 06/22/20 09:00 07/22/20 08:59 07/18/20 08:57 Guaifenesin/ Codeine Phosphate (Robitussin with codeine) 5 ml Q6H PRN NG For Cough 07/14/20 14:15 08/13/20 14:14 07/18/20 21:44 Lansoprazole (Prevacid) 30 mg DAILY GT 07/18/20 09:00 08/09/20 08:59 07/18/20 08:56 Midazolam HCl 200 ml @ 0 mls/hr Q24H PRN IV To Patient Comfort 07/17/20 12:00 07/24/20 11:59 07/19/20 05:03 Midodrine (Pro-Amatine) 10 mg Q8HR GT 06/30/20 14:00 09/12/20 13:59 07/19/20 06:45 Norepinephrine Bitartrate 250 ml @ 7.5 mls/hr Q24H IV 07/17/20 22:15 07/20/20 22:05 07/17/20 22:15 Potassium Chloride (K-Dur) 40 meq TWICE A DAY GT 07/17/20 12:15 10/15/20 12:14 07/18/20 17:11 Quetiapine Fumarate (SEROqueL) 50 mg Q12HR GT 07/16/20 13:30 08/30/20 13:29 07/18/20 21:13 Vitamin D (Vitamin D) 5,000 unit DAILY GT 06/28/20 09:00 07/28/20 08:59 07/18/20 08:57 Last 24 Hour Vital Signs Date Time Temp Pulse Resp B/P (MAP) Pulse Ox O2 Delivery O2 Flow Rate FiO2 07/19/20 08:15 30 105/61 Mechanical Ventilator 50 07/19/20 08:00 27 100/57 Mechanical Ventilator 50 07/19/20 08:00 27 100/27 Mechanical Ventilator 50 07/19/20 07:55 20 104/63 Mechanical Ventilator 50 07/19/20 07:45 104 32 104/63 (77) 100 07/19/20 07:30 99 23 95/58 (70) 100 2/26/21 07:15 105 25 111/67 (82) 99 07/19/20 07:15 101 25 50 07/19/20 07:00 23 96/55 Mechanical Ventilator 50 07/19/20 07:00 23 96/55 Mechanical Ventilator 50 07/19/20 07:00 100 23 96/55 (69) 99 07/19/20 06:45 102 24 94/57 (69) 99 07/19/20 06:30 102 24 90/60 (70) 100 07/19/20 06:15 102 21 93/57 (69) 99 07/19/20 06:00 104 68 07/19/20 06:00 107 25 98 07/19/20 06:00 107 25 93/57 (69) 98 07/19/20 05:30 105 21 106/68 (81) 99 07/19/20 05:22 111 24 50 07/19/20 05:03 22 88/52 Mechanical Ventilator 50 07/19/20 05:00 105 22 88/52 (64) 98 07/19/20 04:30 107 22 86/56 (66) 98 07/19/20 04:00 113 07/19/20 04:00 40 07/19/20 04:00 113 26 95/57 (70) 98 07/19/20 04:00 Mechanical Ventilator Mechanical Ventilator 07/19/20 03:02 117 31 50 07/19/20 03:00 117 27 103/64 (77) 100 07/19/20 02:46 117 24 91/55 (67) 97 07/19/20 02:45 117 24 87/51 (63) 98 07/19/20 02:32 117 24 88/57 (67) 98 07/19/20 02:30 119 24 86/64 (71) 98 07/19/20 02:15 122 25 106/61 (76) 98 07/19/20 02:00 123 25 94/56 (69) 99 07/19/20 01:30 129 30 104/61 (75) 95 07/19/20 01:00 138 25 107/71 (83) 93 07/19/20 00:30 137 26 108/67 (81) 95 07/19/20 00:09 134 29 40 50 07/19/20 00:00 148 40 119/69 (86) 78 07/19/20 00:00 40 07/19/20 00:00 Mechanical Ventilator Mechanical Ventilator 07/19/20 00:00 148 07/18/20 23:30 139 36 124/68 (86) 92 07/18/20 23:00 146 32 120/69 (86) 84 07/18/20 22:53 143 31 40 40 07/18/20 22:30 145 31 111/76 (88) 86 07/18/20 22:00 136 42 127/71 (89) 90 07/18/20 21:30 133 26 117/75 (89) 82 07/18/20 21:20 120 36 40 40 07/18/20 21:00 127 23 125/69 (87) 83 07/18/20 20:30 111 21 100/67 (78) 96 07/18/20 20:00 111 07/18/20 20:00 111 27 103/64 (77) 96 07/18/20 20:00 27 103/64 Mechanical Ventilator 40 07/18/20 20:00 27 103/64 Mechanical Ventilator 40 07/18/20 20:00 40 07/18/20 20:00 Mechanical Ventilator Mechanical Ventilator 07/18/20 19:10 118 38 40 40 07/18/20 19:00 32 107/64 Mechanical Ventilator 40 07/18/20 19:00 32 107/64 Mechanical Ventilator 40 07/18/20 19:00 115 35 98/62 (74) 91 07/18/20 18:40 27 115/71 Mechanical Ventilator 40 07/18/20 18:30 120 27 115/71 (86) 85 07/18/20 18:00 29 98/61 Mechanical Ventilator 40 07/18/20 18:00 29 98/61 Mechanical Ventilator 40 07/18/20 18:00 109 31 101/60 (74) 98 07/18/20 17:30 119 26 95/73 (80) 90 07/18/20 17:00 100 22 105/67 (80) 98 07/18/20 17:00 27 100/68 Mechanical Ventilator 40 07/18/20 17:00 27 100/68 Mechanical Ventilator 40 07/18/20 16:00 98.7 100 29 104/71 (82) 98 07/18/20 16:00 103 07/18/20 16:00 40 07/18/20 16:00 Mechanical Ventilator Mechanical Ventilator 2/25/21 16:00 29 106/69 Mechanical Ventilator 40 07/18/20 16:00 29 106/69 Mechanical Ventilator 40 07/18/20 15:49 101 28 40 07/18/20 15:30 97 28 103/68 (80) 98 07/18/20 15:00 96 22 103/69 (80) 100 07/18/20 15:00 25 101/67 Mechanical Ventilator 40 07/18/20 15:00 25 101/67 Mechanical Ventilator 40 07/18/20 14:30 98 24 109/63 (78) 97 07/18/20 14:00 27 111/65 Mechanical Ventilator 40 07/18/20 14:00 27 111/65 Mechanical Ventilator 40 07/18/20 14:00 100 28 99/70 (80) 92 07/18/20 13:30 90 25 101/71 (81) 100 07/18/20 13:00 90 23 102/72 (82) 100 07/18/20 13:00 25 104/72 Mechanical Ventilator 40 07/18/20 13:00 25 104/72 40 07/18/20 12:30 90 23 109/67 (81) 100 07/18/20 12:00 98.8 94 28 107/68 (81) 100 07/18/20 12:00 Mechanical Ventilator Mechanical Ventilator 07/18/20 12:00 25 104/65 Mechanical Ventilator 40 07/18/20 12:00 25 104/65 Mechanical Ventilator 40 07/18/20 12:00 92 07/18/20 12:00 40 07/18/20 11:30 91 23 97/66 (76) 100 07/18/20 11:00 90 21 107/68 (81) 100 07/18/20 11:00 24 116/80 Mechanical Ventilator 40 07/18/20 11:00 24 116/80 Mechanical Ventilator 40 07/18/20 10:10 108 30 40 07/18/20 10:00 27 115/75 Mechanical Ventilator 40 07/18/20 10:00 27 115/75 Mechanical Ventilator 40 07/18/20 10:00 94 24 110/69 (83) 100 07/18/20 09:30 97 34 114/75 (88) 98 07/18/20 09:30 24 110/69 Mechanical Ventilator 40 07/18/20 09:00 89 24 102/60 (74) 100 07/18/20 09:00 25 100/65 Mechanical Ventilator 40 07/18/20 09:00 25 100/65 Mechanical Ventilator 40 07/18/20 08:30 91 26 112/71 (85) 98 07/18/20 08:00 88 07/18/20 08:00 98.9 113 38 122/77 (92) 81 07/18/20 08:00 27 118/73 Mechanical Ventilator 40 07/18/20 08:00 27 118/73 Mechanical Ventilator 40 07/18/20 08:00 40 07/18/20 08:00 Mechanical Ventilator Mechanical Ventilator 07/18/20 07:05 98 28 40 07/18/20 07:00 85 23 104/70 (81) 100 07/18/20 07:00 23 104/70 Mechanical Ventilator 40 07/18/20 07:00 23 104/70 Mechanical Ventilator 40 07/18/20 06:30 104 68 07/18/20 06:00 98.9 93 22 104/68 (80) 100 07/18/20 06:00 22 104/68 Mechanical Ventilator 65 07/18/20 06:00 22 104/68 Mechanical Ventilator 40 07/18/20 05:30 31 115/63 Mechanical Ventilator 31.0 40 07/18/20 05:00 104 28 107/72 (84) 94 07/18/20 05:00 28 107/72 Mechanical Ventilator 40 07/18/20 04:54 94 22 40 07/18/20 04:00 100 26 103/65 (78) 100 07/18/20 04:00 Mechanical Ventilator Mechanical Ventilator 07/18/20 04:00 26 103/65 Mechanical Ventilator 40 07/18/20 04:00 40 07/18/20 04:00 100 07/18/20 03:30 102 22 40 07/18/20 03:00 101 25 109/65 (80) 96 07/18/20 03:00 25 109/65 Mechanical Ventilator 40 07/18/20 02:00 100 28 102/71 (81) 99 07/18/20 02:00 28 102/71 Non-Rebreather 40 07/18/20 02:00 22 93/55 Mechanical Ventilator 40 07/18/20 01:13 101 23 40 07/18/20 01:00 101 25 101/61 (74) 96 07/18/20 01:00 25 101/61 Mechanical Ventilator 40 07/18/20 01:00 25 101/61 Mechanical Ventilator 40 07/18/20 00:00 99.1 87 19 91/57 (68) 100 07/18/20 00:00 Mechanical Ventilator Mechanical Ventilator 07/18/20 00:00 19 91/57 Mechanical Ventilator 40 07/18/20 00:00 19 91/57 Mechanical Ventilator 40 07/18/20 00:00 87 07/18/20 00:00 40 07/17/20 23:16 93 21 40 07/17/20 23:12 94 23 93/61 (72) 99 07/17/20 23:00 23 92/62 Mechanical Ventilator 65 07/17/20 23:00 23 92/62 Mechanical Ventilator 40 07/17/20 23:00 95 23 92/62 (72) 98 07/17/20 22:30 98 22 97/70 (79) 99 07/17/20 22:15 85/60 07/17/20 22:15 98 22 85/60 (68) 98 07/17/20 22:00 101 23 88/53 (65) 99 07/17/20 22:00 23 88/53 Mechanical Ventilator 40 07/17/20 22:00 23 88/53 Mechanical Ventilator 40 07/17/20 21:30 103 21 40 07/17/20 21:30 98 18 86/65 (72) 97 07/17/20 21:00 20 93/51 Mechanical Ventilator 40.0 07/17/20 21:00 20 93/51 Mechanical Ventilator 40 07/17/20 21:00 99 20 93/51 (65) 99 07/17/20 20:30 99 20 90/57 (68) 99 07/17/20 20:00 21 88/58 Mechanical Ventilator 40 07/17/20 20:00 21 88/58 Mechanical Ventilator 40 07/17/20 20:00 Mechanical Ventilator Mechanical Ventilator 07/17/20 20:00 40 07/17/20 20:00 98.7 96 21 88/58 (68) 99 07/17/20 20:00 96 07/17/20 19:30 95 22 40 07/17/20 19:00 19 84/56 Mechanical Ventilator 40 07/17/20 19:00 19 84/56 40 07/17/20 19:00 87 19 84/56 (65) 100 07/17/20 18:30 87 22 97/59 (72) 100 07/17/20 18:00 19 96/62 Mechanical Ventilator 40 07/17/20 18:00 19 96/62 Mechanical Ventilator 40 07/17/20 18:00 86 19 96/62 (73) 100 07/17/20 17:14 86 20 90/60 (70) 100 07/17/20 17:00 23 98/55 Mechanical Ventilator 40 07/17/20 17:00 23 98/65 Mechanical Ventilator 40 07/17/20 17:00 91 21 93/63 (73) 100 07/17/20 16:00 Mechanical Ventilator Mechanical Ventilator 07/17/20 16:00 40 07/17/20 16:00 99 07/17/20 16:00 27 111/69 Mechanical Ventilator 40 07/17/20 16:00 27 111/69 Mechanical Ventilator 40 07/17/20 16:00 98.7 98 19 107/69 (82) 100 07/17/20 15:00 86 20 90/60 (70) 100 07/17/20 15:00 22 90/60 Mechanical Ventilator 40 07/17/20 15:00 22 90/60 Mechanical Ventilator 40 07/17/20 14:40 101 28 60 07/17/20 14:00 105 27 92/57 (69) 99 07/17/20 14:00 22 97/57 Mechanical Ventilator 40 07/17/20 14:00 22 97/57 Mechanical Ventilator 40 07/17/20 13:30 99.4 101 23 101/67 (78) 99 07/17/20 13:00 111 30 108/68 (81) 97 07/17/20 13:00 29 107/58 Mechanical Ventilator 40 07/17/20 13:00 29 107/58 Mechanical Ventilator 40 07/17/20 12:30 102 22 91/53 (66) 99 07/17/20 12:00 40 07/17/20 12:00 21 94/59 Mechanical Ventilator 40 07/17/20 12:00 21 94/59 Mechanical Ventilator 40 07/17/20 12:00 110 07/17/20 12:00 Mechanical Ventilator Mechanical Ventilator 07/17/20 12:00 103 21 94/59 (71) 99 07/17/20 11:38 20 90/60 Mechanical Ventilator 40 07/17/20 11:30 109 22 100/48 (65) 98 07/17/20 11:00 109 22 98/59 (72) 98 07/17/20 11:00 24 98/59 Mechanical Ventilator 40 07/17/20 11:00 24 98/59 Mechanical Ventilator 40 07/17/20 10:45 98 32 60 07/17/20 10:30 110 24 92/65 (74) 97 07/17/20 10:00 129 29 107/67 (80) 78 07/17/20 10:00 27 99/50 Mechanical Ventilator 40 07/17/20 10:00 27 99/50 Mechanical Ventilator 40 07/17/20 09:30 119 32 102/64 (77) 82 Intake and Output 07/18/20 07/19/20 19:00 07:00 Intake Total 1313.5 ml 605 ml Output Total 550 ml 350 ml Balance 763.5 ml 255 ml Free Water 180 ml IV Total 413.5 ml 185 ml Tube Feeding 720 ml 420 ml Output Urine Total 550 ml 350 ml # Bowel Movements 6 3 Labs Test 07/17/20 03:50 07/18/20 04:32 07/19/20 03:50 White Blood Count 11.1 K/UL (4.8-10.8) 10.2 K/UL (4.8-10.8) 21.7 K/UL (4.8-10.8) Red Blood Count 3.45 M/UL (4.20-5.40) 3.20 M/UL (4.20-5.40) 3.03 M/UL (4.20-5.40) Hemoglobin 9.6 G/DL (12.0-16.0) 8.9 G/DL (12.0-16.0) 8.6 G/DL (12.0-16.0) Hematocrit 31.8 % (37.0-47.0) 29.4 % (37.0-47.0) 27.4 % (37.0-47.0) Mean Corpuscular Volume 92 FL (80-99) 92 FL (80-99) 90 FL (80-99) Mean Corpuscular Hemoglobin 27.7 PG (27.0-31.0) 27.8 PG (27.0-31.0) 28.2 PG (27.0-31.0) Mean Corpuscular Hemoglobin Concent 30.1 G/DL (32.0-36.0) 30.3 G/DL (32.0-36.0) 31.3 G/DL (32.0-36.0) Red Cell Distribution Width 17.0 % (11.6-14.8) 17.1 % (11.6-14.8) 16.9 % (11.6-14.8) Platelet Count 362 K/UL (150-450) 348 K/UL (150-450) 355 K/UL (150-450) Mean Platelet Volume 7.3 FL (6.5-10.1) 7.1 FL (6.5-10.1) 7.4 FL (6.5-10.1) Neutrophils (%) (Auto) 61.4 % (45.0-75.0) 52.8 % (45.0-75.0) % (45.0-75.0) Lymphocytes (%) (Auto) 23.7 % (20.0-45.0) 30.2 % (20.0-45.0) % (20.0-45.0) Monocytes (%) (Auto) 7.1 % (1.0-10.0) 7.2 % (1.0-10.0) % (1.0-10.0) Eosinophils (%) (Auto) 6.9 % (0.0-3.0) 8.8 % (0.0-3.0) % (0.0-3.0) Basophils (%) (Auto) 1.0 % (0.0-2.0) 1.0 % (0.0-2.0) % (0.0-2.0) Sodium Level 138 MMOL/L (136-145) 138 MMOL/L (136-145) 139 MMOL/L (136-145) Potassium Level 3.3 MMOL/L (3.5-5.1) 3.3 MMOL/L (3.5-5.1) 3.5 MMOL/L (3.5-5.1) Chloride Level 94 MMOL/L (98-107) 95 MMOL/L (98-107) 96 MMOL/L (98-107) Carbon Dioxide Level 31 MMOL/L (21-32) 37 MMOL/L (21-32) 36 MMOL/L (21-32) Anion Gap 13 mmol/L (5-15) 6 mmol/L (5-15) 7 mmol/L (5-15) Blood Urea Nitrogen 22 mg/dL (7-18) 18 mg/dL (7-18) 17 mg/dL (7-18) Creatinine 0.6 MG/DL (0.55-1.30) 0.5 MG/DL (0.55-1.30) 0.6 MG/DL (0.55-1.30) Estimat Glomerular Filtration Rate > 60 mL/min (>60) > 60 mL/min (>60) > 60 mL/min (>60) Glucose Level 130 MG/DL (74-106) 116 MG/DL (74-106) 163 MG/DL (74-106) Calcium Level 9.6 MG/DL (8.5-10.1) 10.1 MG/DL (8.5-10.1) 9.9 MG/DL (8.5-10.1) Phosphorus Level 3.7 MG/DL (2.5-4.9) 4.5 MG/DL (2.5-4.9) Magnesium Level 1.8 MG/DL (1.8-2.4) 1.5 MG/DL (1.8-2.4) Total Bilirubin 1.1 MG/DL (0.2-1.0) 0.7 MG/DL (0.2-1.0) Direct Bilirubin 0.2 MG/DL (0.0-0.3) Aspartate Amino Transf (AST/SGOT) 41 U/L (15-37) 49 U/L (15-37) Alanine Aminotransferase (ALT/SGPT) 17 U/L (12-78) 27 U/L (12-78) Alkaline Phosphatase 72 U/L (46-116) 80 U/L (46-116) Total Protein 8.2 G/DL (6.4-8.2) 7.7 G/DL (6.4-8.2) Albumin 2.3 G/DL (3.4-5.0) 2.3 G/DL (3.4-5.0) Globulin 5.9 g/dL 5.4 g/dL Albumin/Globulin Ratio 0.4 (1.0-2.7) 0.4 (1.0-2.7) Prothrombin Time 13.3 SEC (9.30-11.50) Prothromb Time International Ratio 1.2 (0.9-1.1) Height (Feet): 5 Height (Inches): 6.00 Weight (Pounds): 239 Objective GeNL: nv HEENT: ngt++ Pulm: vent/trach++ CV: rrr Abd: soft, nt, nd Ext: no cce Myron Condon MD Jul 19, 2020 09:10
--- NOTE | 2020-07-19 09:37 | General Progress Note ---
Subjective Constitutional: Reports: weakness Allergies: Coded Allergies: No Known Allergies (Unverified , 05/28/20) All Systems: reviewed and negative except above Subjective trach vent ng in icu Objective Last 24 Hour Vital Signs Date Time Temp Pulse Resp B/P (MAP) Pulse Ox O2 Delivery O2 Flow Rate FiO2 07/19/20 08:15 30 105/61 Mechanical Ventilator 50 07/19/20 08:00 27 100/57 Mechanical Ventilator 50 07/19/20 08:00 27 100/27 Mechanical Ventilator 50 07/19/20 07:55 20 104/63 Mechanical Ventilator 50 07/19/20 07:45 104 32 104/63 (77) 100 07/19/20 07:30 99 23 95/58 (70) 100 07/19/20 07:15 105 25 111/67 (82) 99 07/19/20 07:15 101 25 50 07/19/20 07:00 23 96/55 Mechanical Ventilator 50 07/19/20 07:00 23 96/55 Mechanical Ventilator 50 07/19/20 07:00 100 23 96/55 (69) 99 07/19/20 06:45 102 24 94/57 (69) 99 07/19/20 06:30 102 24 90/60 (70) 100 07/19/20 06:15 102 21 93/57 (69) 99 07/19/20 06:00 104 68 07/19/20 06:00 107 25 98 07/19/20 06:00 107 25 93/57 (69) 98 07/19/20 05:30 105 21 106/68 (81) 99 07/19/20 05:22 111 24 50 07/19/20 05:03 22 88/52 Mechanical Ventilator 50 07/19/20 05:00 105 22 88/52 (64) 98 07/19/20 04:30 107 22 86/56 (66) 98 07/19/20 04:00 113 07/19/20 04:00 40 07/19/20 04:00 113 26 95/57 (70) 98 07/19/20 04:00 Mechanical Ventilator Mechanical Ventilator 07/19/20 03:02 117 31 50 07/19/20 03:00 117 27 103/64 (77) 100 07/19/20 02:46 117 24 91/55 (67) 97 07/19/20 02:45 117 24 87/51 (63) 98 07/19/20 02:32 117 24 88/57 (67) 98 07/19/20 02:30 119 24 86/64 (71) 98 07/19/20 02:15 122 25 106/61 (76) 98 07/19/20 02:00 123 25 94/56 (69) 99 07/19/20 01:30 129 30 104/61 (75) 95 07/19/20 01:00 138 25 107/71 (83) 93 07/19/20 00:30 137 26 108/67 (81) 95 07/19/20 00:09 134 29 40 50 07/19/20 00:00 148 40 119/69 (86) 78 07/19/20 00:00 40 07/19/20 00:00 Mechanical Ventilator Mechanical Ventilator 07/19/20 00:00 148 07/18/20 23:30 139 36 124/68 (86) 92 07/18/20 23:00 146 32 120/69 (86) 84 07/18/20 22:53 143 31 40 40 07/18/20 22:30 145 31 111/76 (88) 86 07/18/20 22:00 136 42 127/71 (89) 90 07/18/20 21:30 133 26 117/75 (89) 82 07/18/20 21:20 120 36 40 40 07/18/20 21:00 127 23 125/69 (87) 83 07/18/20 20:30 111 21 100/67 (78) 96 07/18/20 20:00 111 07/18/20 20:00 111 27 103/64 (77) 96 07/18/20 20:00 27 103/64 Mechanical Ventilator 40 07/18/20 20:00 27 103/64 Mechanical Ventilator 40 07/18/20 20:00 40 07/18/20 20:00 Mechanical Ventilator Mechanical Ventilator 07/18/20 19:10 118 38 40 40 07/18/20 19:00 32 107/64 Mechanical Ventilator 40 07/18/20 19:00 32 107/64 Mechanical Ventilator 40 07/18/20 19:00 115 35 98/62 (74) 91 07/18/20 18:40 27 115/71 Mechanical Ventilator 40 07/18/20 18:30 120 27 115/71 (86) 85 07/18/20 18:00 29 98/61 Mechanical Ventilator 40 07/18/20 18:00 29 98/61 Mechanical Ventilator 40 07/18/20 18:00 109 31 101/60 (74) 98 07/18/20 17:30 119 26 95/73 (80) 90 07/18/20 17:00 100 22 105/67 (80) 98 07/18/20 17:00 27 100/68 Mechanical Ventilator 40 07/18/20 17:00 27 100/68 Mechanical Ventilator 40 07/18/20 16:00 98.7 100 29 104/71 (82) 98 07/18/20 16:00 103 07/18/20 16:00 40 07/18/20 16:00 Mechanical Ventilator Mechanical Ventilator 07/18/20 16:00 29 106/69 Mechanical Ventilator 40 07/18/20 16:00 29 106/69 Mechanical Ventilator 40 07/18/20 15:49 101 28 40 07/18/20 15:30 97 28 103/68 (80) 98 07/18/20 15:00 96 22 103/69 (80) 100 07/18/20 15:00 25 101/67 Mechanical Ventilator 40 07/18/20 15:00 25 101/67 Mechanical Ventilator 40 07/18/20 14:30 98 24 109/63 (78) 97 07/18/20 14:00 27 111/65 Mechanical Ventilator 40 07/18/20 14:00 27 111/65 Mechanical Ventilator 40 07/18/20 14:00 100 28 99/70 (80) 92 07/18/20 13:30 90 25 101/71 (81) 100 07/18/20 13:00 90 23 102/72 (82) 100 07/18/20 13:00 25 104/72 Mechanical Ventilator 40 07/18/20 13:00 25 104/72 40 07/18/20 12:30 90 23 109/67 (81) 100 07/18/20 12:00 98.8 94 28 107/68 (81) 100 07/18/20 12:00 Mechanical Ventilator Mechanical Ventilator 07/18/20 12:00 25 104/65 Mechanical Ventilator 40 07/18/20 12:00 25 104/65 Mechanical Ventilator 40 07/18/20 12:00 92 07/18/20 12:00 40 07/18/20 11:30 91 23 97/66 (76) 100 07/18/20 11:00 90 21 107/68 (81) 100 07/18/20 11:00 24 116/80 Mechanical Ventilator 40 07/18/20 11:00 24 116/80 Mechanical Ventilator 40 07/18/20 10:10 108 30 40 07/18/20 10:00 27 115/75 Mechanical Ventilator 40 07/18/20 10:00 27 115/75 Mechanical Ventilator 40 07/18/20 10:00 94 24 110/69 (83) 100 Intake and Output 07/18/20 07/19/20 19:00 07:00 Intake Total 1313.5 ml 605 ml Output Total 550 ml 350 ml Balance 763.5 ml 255 ml Free Water 180 ml IV Total 413.5 ml 185 ml Tube Feeding 720 ml 420 ml Output Urine Total 550 ml 350 ml # Bowel Movements 6 3 Laboratory Tests 07/19/20 03:50: White Blood Count 21.7#H, Red Blood Count 3.03L, Hemoglobin 8.6L, Hematocrit 27.4L, Mean Corpuscular Volume 90, Mean Corpuscular Hemoglobin 28.2, Mean Corpuscular Hemoglobin Concent 31.3L, Red Cell Distribution Width 16.9H, Platelet Count 355, Mean Platelet Volume 7.4, Neutrophils (%) (Auto) , Lymphocytes (%) (Auto) , Monocytes (%) (Auto) , Eosinophils (%) (Auto) , Basophils (%) (Auto) , Neutrophils % (Manual) [Pending], Lymphocytes % (Manual) [Pending], Platelet Estimate [Pending], Platelet Morphology [Pending], Prothrombin Time 13.3H, Prothromb Time International Ratio 1.2H, Sodium Level 139, Potassium Level 3.5, Chloride Level 96L, Carbon Dioxide Level 36H, Anion Gap 7, Blood Urea Nitrogen 17, Creatinine 0.6, Estimat Glomerular Filtration Rate > 60, Glucose Level 163H, Calcium Level 9.9, Phosphorus Level 4.5, Magnesium Level 1.5L, Total Bilirubin 0.7, Aspartate Amino Transf (AST/SGOT) 49H , Alanine Aminotransferase (ALT/SGPT) 27, Alkaline Phosphatase 80, Total Protein 7.7, Albumin 2.3L, Globulin 5.4, Albumin/Globulin Ratio 0.4L Height (Feet): 5 Height (Inches): 6.00 Weight (Pounds): 239 General Appearance: lethargic EENT: normal ENT inspection Neck: normal alignment Cardiovascular: normal peripheral pulses, normal rate, regular rhythm Respiratory/Chest: chest wall non-tender, lungs clear, normal breath sounds Abdomen: normal bowel sounds, non tender, soft Extremities: normal inspection Edema: no edema noted Arm (L), no edema noted Arm (R), no edema noted Leg (L), no edema noted Leg (R), no edema noted Pedal (L), no edema noted Pedal (R), no edema noted Generalized Neurologic: motor weakness Skin: normal pigmentation, warm/dry Assessment/Plan Problem List: (1) Hypoxia ICD Codes: R09.02 - Hypoxemia SNOMED: 268152866 (2) Respiratory failure ICD Codes: J96.90 - Respiratory failure, unspecified, unspecified whether with hypoxia or hypercapnia SNOMED: 727329157 (3) Respiratory distress ICD Codes: R06.03 - Acute respiratory distress; J12.82 - Pneumonia due to coronavirus disease 2019 SNOMED: 300348197 (4) Pneumonia due to COVID-19 virus ICD Codes: U07.1 - COVID-19; J12.82 - Pneumonia due to coronavirus disease 2019 SNOMED: 902374344601726860 Status: unchanged Assessment/Plan: vent abx id pulm f/u cbc bmp am Tank Del Cid DO Jul 19, 2020 09:37
--- NOTE | 2020-07-19 10:00 | NUR ---
NURSE NOTES: Pt awake on and off,Fentanyl drip increased to maintain a RASS -2.
--- NOTE | 2020-07-19 10:00 | NUR ---
NURSE NOTES: Dr Nava at bedside,updated re pt's status,ordered to increase PEEP to 7.
--- NOTE | 2020-07-19 10:24 | Infectious Diseases Prog Note ---
Assessment/Plan Assessment/Plan antibiotics : none A 1. covid 19 pneumonia s/p remdesivir s/p solumedrol 2. respiratory failure s/p tracheostomy 3. serratia pneumonia s/p rx 4. leucocytosis increased P 1. start cefepime 2. sputum culture 3. Ua and urine culture 4. blood culture 5. will follow up cultures Subjective ROS Limited/Unobtainable: Yes Allergies: Coded Allergies: No Known Allergies (Unverified , 05/28/20) Objective Last 24 Hour Vital Signs Date Time Temp Pulse Resp B/P (MAP) Pulse Ox O2 Delivery O2 Flow Rate FiO2 07/19/20 10:00 98 22 104/62 (76) 100 07/19/20 09:00 99.0 107 26 93/63 (73) 96 07/19/20 08:15 30 105/61 Mechanical Ventilator 50 07/19/20 08:00 Mechanical Ventilator Mechanical Ventilator 07/19/20 08:00 40 07/19/20 08:00 27 100/57 Mechanical Ventilator 50 07/19/20 08:00 27 100/27 Mechanical Ventilator 50 07/19/20 07:55 20 104/63 Mechanical Ventilator 50 07/19/20 07:45 104 32 104/63 (77) 100 07/19/20 07:30 99 23 95/58 (70) 100 07/19/20 07:15 105 25 111/67 (82) 99 07/19/20 07:15 101 25 50 07/19/20 07:00 23 96/55 Mechanical Ventilator 50 07/19/20 07:00 23 96/55 Mechanical Ventilator 50 07/19/20 07:00 100 23 96/55 (69) 99 07/19/20 06:45 102 24 94/57 (69) 99 07/19/20 06:30 102 24 90/60 (70) 100 07/19/20 06:15 102 21 93/57 (69) 99 07/19/20 06:00 104 68 07/19/20 06:00 107 25 98 07/19/20 06:00 107 25 93/57 (69) 98 07/19/20 05:30 105 21 106/68 (81) 99 07/19/20 05:22 111 24 50 07/19/20 05:03 22 88/52 Mechanical Ventilator 50 07/19/20 05:00 105 22 88/52 (64) 98 07/19/20 04:30 107 22 86/56 (66) 98 07/19/20 04:00 113 07/19/20 04:00 40 07/19/20 04:00 113 26 95/57 (70) 98 07/19/20 04:00 Mechanical Ventilator Mechanical Ventilator 07/19/20 03:02 117 31 50 07/19/20 03:00 117 27 103/64 (77) 100 07/19/20 02:46 117 24 91/55 (67) 97 07/19/20 02:45 117 24 87/51 (63) 98 07/19/20 02:32 117 24 88/57 (67) 98 07/19/20 02:30 119 24 86/64 (71) 98 07/19/20 02:15 122 25 106/61 (76) 98 07/19/20 02:00 123 25 94/56 (69) 99 07/19/20 01:30 129 30 104/61 (75) 95 07/19/20 01:00 138 25 107/71 (83) 93 07/19/20 00:30 137 26 108/67 (81) 95 07/19/20 00:09 134 29 40 50 07/19/20 00:00 148 40 119/69 (86) 78 07/19/20 00:00 40 07/19/20 00:00 Mechanical Ventilator Mechanical Ventilator 07/19/20 00:00 148 07/18/20 23:30 139 36 124/68 (86) 92 07/18/20 23:00 146 32 120/69 (86) 84 07/18/20 22:53 143 31 40 40 07/18/20 22:30 145 31 111/76 (88) 86 07/18/20 22:00 136 42 127/71 (89) 90 07/18/20 21:30 133 26 117/75 (89) 82 07/18/20 21:20 120 36 40 40 07/18/20 21:00 127 23 125/69 (87) 83 07/18/20 20:30 111 21 100/67 (78) 96 07/18/20 20:00 111 07/18/20 20:00 111 27 103/64 (77) 96 07/18/20 20:00 27 103/64 Mechanical Ventilator 40 07/18/20 20:00 27 103/64 Mechanical Ventilator 40 07/18/20 20:00 40 07/18/20 20:00 Mechanical Ventilator Mechanical Ventilator 07/18/20 19:10 118 38 40 40 07/18/20 19:00 32 107/64 Mechanical Ventilator 40 07/18/20 19:00 32 107/64 Mechanical Ventilator 40 07/18/20 19:00 115 35 98/62 (74) 91 07/18/20 18:40 27 115/71 Mechanical Ventilator 40 07/18/20 18:30 120 27 115/71 (86) 85 07/18/20 18:00 29 98/61 Mechanical Ventilator 40 07/18/20 18:00 29 98/61 Mechanical Ventilator 40 07/18/20 18:00 109 31 101/60 (74) 98 07/18/20 17:30 119 26 95/73 (80) 90 07/18/20 17:00 100 22 105/67 (80) 98 07/18/20 17:00 27 100/68 Mechanical Ventilator 40 07/18/20 17:00 27 100/68 Mechanical Ventilator 40 07/18/20 16:00 98.7 100 29 104/71 (82) 98 07/18/20 16:00 103 07/18/20 16:00 40 07/18/20 16:00 Mechanical Ventilator Mechanical Ventilator 07/18/20 16:00 29 106/69 Mechanical Ventilator 40 07/18/20 16:00 29 106/69 Mechanical Ventilator 40 07/18/20 15:49 101 28 40 07/18/20 15:30 97 28 103/68 (80) 98 07/18/20 15:00 96 22 103/69 (80) 100 07/18/20 15:00 25 101/67 Mechanical Ventilator 40 07/18/20 15:00 25 101/67 Mechanical Ventilator 40 07/18/20 14:30 98 24 109/63 (78) 97 07/18/20 14:00 27 111/65 Mechanical Ventilator 40 07/18/20 14:00 27 111/65 Mechanical Ventilator 40 07/18/20 14:00 100 28 99/70 (80) 92 07/18/20 13:30 90 25 101/71 (81) 100 07/18/20 13:00 90 23 102/72 (82) 100 07/18/20 13:00 25 104/72 Mechanical Ventilator 40 07/18/20 13:00 25 104/72 40 07/18/20 12:30 90 23 109/67 (81) 100 07/18/20 12:00 98.8 94 28 107/68 (81) 100 07/18/20 12:00 Mechanical Ventilator Mechanical Ventilator 07/18/20 12:00 25 104/65 Mechanical Ventilator 40 07/18/20 12:00 25 104/65 Mechanical Ventilator 40 07/18/20 12:00 92 07/18/20 12:00 40 07/18/20 11:30 91 23 97/66 (76) 100 07/18/20 11:00 90 21 107/68 (81) 100 07/18/20 11:00 24 116/80 Mechanical Ventilator 40 07/18/20 11:00 24 116/80 Mechanical Ventilator 40 Height (Feet): 5 Height (Inches): 6.00 Weight (Pounds): 239 HEENT: status post trach Laboratory Tests Test 07/19/20 03:50 White Blood Count 21.7 K/UL (4.8-10.8) #H Red Blood Count 3.03 M/UL (4.20-5.40) L Hemoglobin 8.6 G/DL (12.0-16.0) L Hematocrit 27.4 % (37.0-47.0) L Mean Corpuscular Volume 90 FL (80-99) Mean Corpuscular Hemoglobin 28.2 PG (27.0-31.0) Mean Corpuscular Hemoglobin Concent 31.3 G/DL (32.0-36.0) L Red Cell Distribution Width 16.9 % (11.6-14.8) H Platelet Count 355 K/UL (150-450) Mean Platelet Volume 7.4 FL (6.5-10.1) Neutrophils (%) (Auto) % (45.0-75.0) Lymphocytes (%) (Auto) % (20.0-45.0) Monocytes (%) (Auto) % (1.0-10.0) Eosinophils (%) (Auto) % (0.0-3.0) Basophils (%) (Auto) % (0.0-2.0) Neutrophils % (Manual) Pending Lymphocytes % (Manual) Pending Platelet Estimate Pending Platelet Morphology Pending Prothrombin Time 13.3 SEC (9.30-11.50) H Prothromb Time International Ratio 1.2 (0.9-1.1) H Sodium Level 139 MMOL/L (136-145) Potassium Level 3.5 MMOL/L (3.5-5.1) Chloride Level 96 MMOL/L (98-107) L Carbon Dioxide Level 36 MMOL/L (21-32) H Anion Gap 7 mmol/L (5-15) Blood Urea Nitrogen 17 mg/dL (7-18) Creatinine 0.6 MG/DL (0.55-1.30) Estimat Glomerular Filtration Rate > 60 mL/min (>60) Glucose Level 163 MG/DL (74-106) H Calcium Level 9.9 MG/DL (8.5-10.1) Phosphorus Level 4.5 MG/DL (2.5-4.9) Magnesium Level 1.5 MG/DL (1.8-2.4) L Total Bilirubin 0.7 MG/DL (0.2-1.0) Aspartate Amino Transf (AST/SGOT) 49 U/L (15-37) H Alanine Aminotransferase (ALT/SGPT) 27 U/L (12-78) Alkaline Phosphatase 80 U/L (46-116) Total Protein 7.7 G/DL (6.4-8.2) Albumin 2.3 G/DL (3.4-5.0) L Globulin 5.4 g/dL Albumin/Globulin Ratio 0.4 (1.0-2.7) L Current Medications Medications (Trade) Dose Ordered Sig/Zelda Route PRN Reason Start Time Stop Time Status Last Admin Dose Admin Acetaminophen (Tylenol) 650 mg Q4H PRN NG Temp >100.5 06/29/20 10:15 07/29/20 10:14 07/19/20 07:59 Acetaminophen (Tylenol) 650 mg Q6H PRN NG Mild Pain (Pain Scale 1-3) 06/29/20 10:15 07/29/20 10:14 Chlorhexidine Gluconate (Inna-Hex 2%) 1 applic DAILY@1999 TOPIC 05/30/20 20:00 08/28/20 19:59 07/18/20 20:12 Dextrose (Dextrose 50%) 25 ml Q30M PRN IV Hypoglycemia 06/05/20 10:45 09/03/20 10:44 Dextrose (Dextrose 50%) 50 ml Q30M PRN IV Hypoglycemia 06/05/20 10:45 09/03/20 10:44 Enoxaparin Sodium (Lovenox) 110 mg EVERY 12 HOURS SUBQ 07/17/20 21:00 10/15/20 20:59 07/18/20 21:15 Fentanyl Citrate 250 ml @ 8 mls/hr Q24H IV 07/18/20 05:30 07/20/20 05:29 07/19/20 07:55 Furosemide (Lasix) 40 mg DAILY IV 06/22/20 09:00 07/22/20 08:59 07/19/20 09:12 Guaifenesin/ Codeine Phosphate (Robitussin with codeine) 5 ml Q6H PRN NG For Cough 07/14/20 14:15 08/13/20 14:14 07/18/20 21:44 Lansoprazole (Prevacid) 30 mg DAILY GT 07/18/20 09:00 08/09/20 08:59 07/18/20 08:56 Midazolam HCl 200 ml @ 0 mls/hr Q24H PRN IV To Patient Comfort 07/17/20 12:00 07/24/20 11:59 07/19/20 05:03 Midodrine (Pro-Amatine) 10 mg Q8HR GT 06/30/20 14:00 09/12/20 13:59 07/19/20 06:45 Norepinephrine Bitartrate 250 ml @ 7.5 mls/hr Q24H IV 07/17/20 22:15 07/20/20 22:05 07/17/20 22:15 Potassium Chloride (K-Dur) 40 meq TWICE A DAY GT 07/17/20 12:15 10/15/20 12:14 07/18/20 17:11 Quetiapine Fumarate (SEROqueL) 50 mg Q12HR GT 07/16/20 13:30 08/30/20 13:29 07/18/20 21:13 Vitamin D (Vitamin D) 5,000 unit DAILY GT 06/28/20 09:00 07/28/20 08:59 07/18/20 08:57 Fili Mcelroy MD Jul 19, 2020 10:24
--- NOTE | 2020-07-19 10:33 | Pulmonology Progress Note ---
Subjective ROS Limited/Unobtainable: Yes Interval Events: S/p tracheostomy Constitutional: Reports: fever, other - resolved HEENT: Repors: no symptoms Respiratory: Reports: no symptoms Cardiovascular: Reports: no symptoms Gastrointestinal/Abdominal: Reports: no symptoms Genitourinary: Reports: no symptoms Allergies: Coded Allergies: No Known Allergies (Unverified , 05/28/20) All Systems: reviewed and negative except above Objective Last 24 Hour Vital Signs Date Time Temp Pulse Resp B/P (MAP) Pulse Ox O2 Delivery O2 Flow Rate FiO2 07/19/20 10:00 98 22 104/62 (76) 100 07/19/20 09:00 99.0 107 26 93/63 (73) 96 07/19/20 08:15 30 105/61 Mechanical Ventilator 50 07/19/20 08:00 Mechanical Ventilator Mechanical Ventilator 07/19/20 08:00 40 07/19/20 08:00 27 100/57 Mechanical Ventilator 50 07/19/20 08:00 27 100/27 Mechanical Ventilator 50 07/19/20 07:55 20 104/63 Mechanical Ventilator 50 07/19/20 07:45 104 32 104/63 (77) 100 07/19/20 07:30 99 23 95/58 (70) 100 07/19/20 07:15 105 25 111/67 (82) 99 07/19/20 07:15 101 25 50 07/19/20 07:00 23 96/55 Mechanical Ventilator 50 07/19/20 07:00 23 96/55 Mechanical Ventilator 50 07/19/20 07:00 100 23 96/55 (69) 99 07/19/20 06:45 102 24 94/57 (69) 99 07/19/20 06:30 102 24 90/60 (70) 100 07/19/20 06:15 102 21 93/57 (69) 99 07/19/20 06:00 104 68 07/19/20 06:00 107 25 98 07/19/20 06:00 107 25 93/57 (69) 98 07/19/20 05:30 105 21 106/68 (81) 99 07/19/20 05:22 111 24 50 07/19/20 05:03 22 88/52 Mechanical Ventilator 50 07/19/20 05:00 105 22 88/52 (64) 98 07/19/20 04:30 107 22 86/56 (66) 98 07/19/20 04:00 113 07/19/20 04:00 40 07/19/20 04:00 113 26 95/57 (70) 98 07/19/20 04:00 Mechanical Ventilator Mechanical Ventilator 07/19/20 03:02 117 31 50 07/19/20 03:00 117 27 103/64 (77) 100 07/19/20 02:46 117 24 91/55 (67) 97 07/19/20 02:45 117 24 87/51 (63) 98 07/19/20 02:32 117 24 88/57 (67) 98 07/19/20 02:30 119 24 86/64 (71) 98 07/19/20 02:15 122 25 106/61 (76) 98 07/19/20 02:00 123 25 94/56 (69) 99 07/19/20 01:30 129 30 104/61 (75) 95 07/19/20 01:00 138 25 107/71 (83) 93 07/19/20 00:30 137 26 108/67 (81) 95 07/19/20 00:09 134 29 40 50 07/19/20 00:00 148 40 119/69 (86) 78 07/19/20 00:00 40 07/19/20 00:00 Mechanical Ventilator Mechanical Ventilator 07/19/20 00:00 148 07/18/20 23:30 139 36 124/68 (86) 92 07/18/20 23:00 146 32 120/69 (86) 84 07/18/20 22:53 143 31 40 40 07/18/20 22:30 145 31 111/76 (88) 86 07/18/20 22:00 136 42 127/71 (89) 90 07/18/20 21:30 133 26 117/75 (89) 82 07/18/20 21:20 120 36 40 40 07/18/20 21:00 127 23 125/69 (87) 83 07/18/20 20:30 111 21 100/67 (78) 96 07/18/20 20:00 111 07/18/20 20:00 111 27 103/64 (77) 96 07/18/20 20:00 27 103/64 Mechanical Ventilator 40 07/18/20 20:00 27 103/64 Mechanical Ventilator 40 07/18/20 20:00 40 07/18/20 20:00 Mechanical Ventilator Mechanical Ventilator 07/18/20 19:10 118 38 40 40 07/18/20 19:00 32 107/64 Mechanical Ventilator 40 07/18/20 19:00 32 107/64 Mechanical Ventilator 40 07/18/20 19:00 115 35 98/62 (74) 91 07/18/20 18:40 27 115/71 Mechanical Ventilator 40 07/18/20 18:30 120 27 115/71 (86) 85 07/18/20 18:00 29 98/61 Mechanical Ventilator 40 07/18/20 18:00 29 98/61 Mechanical Ventilator 40 07/18/20 18:00 109 31 101/60 (74) 98 07/18/20 17:30 119 26 95/73 (80) 90 07/18/20 17:00 100 22 105/67 (80) 98 07/18/20 17:00 27 100/68 Mechanical Ventilator 40 07/18/20 17:00 27 100/68 Mechanical Ventilator 40 07/18/20 16:00 98.7 100 29 104/71 (82) 98 07/18/20 16:00 103 07/18/20 16:00 40 07/18/20 16:00 Mechanical Ventilator Mechanical Ventilator 07/18/20 16:00 29 106/69 Mechanical Ventilator 40 07/18/20 16:00 29 106/69 Mechanical Ventilator 40 07/18/20 15:49 101 28 40 07/18/20 15:30 97 28 103/68 (80) 98 07/18/20 15:00 96 22 103/69 (80) 100 07/18/20 15:00 25 101/67 Mechanical Ventilator 40 07/18/20 15:00 25 101/67 Mechanical Ventilator 40 07/18/20 14:30 98 24 109/63 (78) 97 07/18/20 14:00 27 111/65 Mechanical Ventilator 40 07/18/20 14:00 27 111/65 Mechanical Ventilator 40 07/18/20 14:00 100 28 99/70 (80) 92 07/18/20 13:30 90 25 101/71 (81) 100 07/18/20 13:00 90 23 102/72 (82) 100 07/18/20 13:00 25 104/72 Mechanical Ventilator 40 07/18/20 13:00 25 104/72 40 07/18/20 12:30 90 23 109/67 (81) 100 07/18/20 12:00 98.8 94 28 107/68 (81) 100 07/18/20 12:00 Mechanical Ventilator Mechanical Ventilator 07/18/20 12:00 25 104/65 Mechanical Ventilator 40 07/18/20 12:00 25 104/65 Mechanical Ventilator 40 07/18/20 12:00 92 07/18/20 12:00 40 07/18/20 11:30 91 23 97/66 (76) 100 07/18/20 11:00 90 21 107/68 (81) 100 07/18/20 11:00 24 116/80 Mechanical Ventilator 40 07/18/20 11:00 24 116/80 Mechanical Ventilator 40 Intake and Output 07/18/20 07/19/20 19:00 07:00 Intake Total 1313.5 ml 605 ml Output Total 550 ml 380 ml Balance 763.5 ml 225 ml Free Water 180 ml IV Total 413.5 ml 185 ml Tube Feeding 720 ml 420 ml Output Urine Total 550 ml 380 ml # Bowel Movements 6 3 General Appearance: no acute distress HEENT: normocephalic, status post trach Respiratory: chest wall non-tender Cardiovascular: normal peripheral pulses Abdomen: normal bowel sounds Laboratory Tests 07/19/20 03:50: White Blood Count 21.7#H, Red Blood Count 3.03L, Hemoglobin 8.6L, Hematocrit 27.4L, Mean Corpuscular Volume 90, Mean Corpuscular Hemoglobin 28.2, Mean Corpuscular Hemoglobin Concent 31.3L, Red Cell Distribution Width 16.9H, Marlene telet Count 355, Mean Platelet Volume 7.4, Neutrophils (%) (Auto) , Lymphocytes (%) (Auto) , Monocytes (%) (Auto) , Eosinophils (%) (Auto) , Basophils (%) (Auto) , Neutrophils % (Manual) [Pending], Lymphocytes % (Manual) [Pending], Platelet Estimate [Pending], Platelet Morphology [Pending], Prothrombin Time 13.3H, Prothromb Time International Ratio 1.2H, Sodium Level 139, Potassium Level 3.5, Chloride Level 96L, Carbon Dioxide Level 36H, Anion Gap 7, Blood Urea Nitrogen 17, Creatinine 0.6, Estimat Glomerular Filtration Rate > 60, Glucose L evel 163H, Calcium Level 9.9, Phosphorus Level 4.5, Magnesium Level 1.5L, Total Bilirubin 0.7, Aspartate Amino Transf (AST/SGOT) 49H, Alanine Aminotransferase (ALT/SGPT) 27, Alkaline Phosphatase 80, Total Protein 7.7, Albumin 2.3L, Globulin 5.4, Albumin/Globulin Ratio 0.4L Current Medications Medications (Trade) Dose Ordered Sig/Zelda Route PRN Reason Start Time Stop Time Status Last Admin Dose Admin Acetaminophen (Tylenol) 650 mg Q4H PRN NG Temp >100.5 06/29/20 10:15 07/29/20 10:14 07/19/20 07:59 Acetaminophen (Tylenol) 650 mg Q6H PRN NG Mild Pain (Pain Scale 1-3) 06/29/20 10:15 07/29/20 10:14 Cefepime HCl 2 gm/ Dextrose 55 ml @ 110 mls/hr EVERY 12 HOURS IVPB 07/19/20 10:30 07/26/20 10:29 UNV Chlorhexidine Gluconate (Inna-Hex 2%) 1 applic DAILY@2000 TOPIC 05/30/20 20:00 08/28/20 19:59 07/18/20 20:12 Dextrose (Dextrose 50%) 25 ml Q30M PRN IV Hypoglycemia 06/05/20 10:45 09/03/20 10:44 Dextrose (Dextrose 50%) 50 ml Q30M PRN IV Hypoglycemia 06/05/20 10:45 09/03/20 10:44 Enoxaparin Sodium (Lovenox) 110 mg EVERY 12 HOURS SUBQ 07/17/20 21:00 10/15/20 20:59 07/18/20 21:15 Fentanyl Citrate 250 ml @ 8 mls/hr Q24H IV 07/18/20 05:30 07/20/20 05:29 07/19/20 07:55 Furosemide (Lasix) 40 mg DAILY IV 06/22/20 09:00 07/22/20 08:59 07/19/20 09:12 Guaifenesin/ Codeine Phosphate (Robitussin with codeine) 5 ml Q6H PRN NG For Cough 07/14/20 14:15 08/13/20 14:14 07/18/20 21:44 Lansoprazole (Prevacid) 30 mg DAILY GT 07/18/20 09:00 08/09/20 08:59 07/18/20 08:56 Midazolam HCl 200 ml @ 0 mls/hr Q24H PRN IV To Patient Comfort 07/17/20 12:00 07/24/20 11:59 07/19/20 05:03 Midodrine (Pro-Amatine) 10 mg Q8HR GT 06/30/20 14:00 09/12/20 13:59 07/19/20 06:45 Norepinephrine Bitartrate 250 ml @ 7.5 mls/hr Q24H IV 07/17/20 22:15 07/20/20 22:05 07/17/20 22:15 Potassium Chloride (K-Dur) 40 meq TWICE A DAY GT 07/17/20 12:15 10/15/20 12:14 07/18/20 17:11 Quetiapine Fumarate (SEROqueL) 50 mg Q12HR GT 07/16/20 13:30 08/30/20 13:29 07/18/20 21:13 Vitamin D (Vitamin D) 5,000 unit DAILY GT 06/28/20 09:00 07/28/20 08:59 07/18/20 08:57 Assessment/Plan Assessment/Plan 1. COVID-19 pneumonia -Intubated 05/28/20 - We will continue broad-spectrum antibiotics. -s/p solumedrol, Rocephin -Continue PEEP 6 ->7 - Peak airway pressures high; 38 - FiO2 100% -> 90 ->80->60 ->40 ->80 ->100 ->70 ->60 -> 50 ->45 - >40%; PEEP 7 ->5 -will continue OGT feeding 2. Hyponatremia -Per primary MD 3. Elevated inflammatory markers - has high D dimer; On Lovenox 4. Decreased PEEP Continue weaning efforts S/p trach Reported cuff leak per Rn/RT Discussed trach change with surgery Hold off for now... however noted loss of volumes on vent and high FiO2 req uirements Off IV fluids Begin dc planning to subacute; will need to wean down O2 further prior to transfer On low dose Levophed; will attempt to wean off Will wean off IV sedation; started Seroquel Needs PEG; planned for today Javier Nava MD Jul 19, 2020 10:33
--- NOTE | 2020-07-19 10:40 | Nephrology Progress Note ---
Assessment/Plan Problem List: (1) DEVENDRA (acute kidney injury) (2) Morbid obesity (3) Diabetes mellitus out of control (4) Pneumonia due to COVID-19 virus (5) Respiratory failure Assessment Acute renal failure Obstructive uropathy, clogged [place] Respiratory failure COVID-19 pneumonia Morbid obesity Plan July 19: Status quo. Due for PEG insertion today. Remains full code. Trach and vent. Low magnesium addressed. Continue per consultants. FiO2 50%. July 18: Status quo. Labs reviewed. Low potassium addressed. Continue per consultants. Remains full code. July 17: Remains full code. Trach to vent. FiO2 40%. Labs reviewed. Low potassium addressed. Continue per consultants. July 16: Status quo. FiO2 45%. Discussed with RN. Continue to taper her mind altering medications and sedatives. Stable from renal standpoint of view. Abnormal electrolytes addressed. July 15: Full code. FiO2 50%. Intubated on ventilator. No labs drawn today. Continue per consultants. July 14: Status quo. FiO2 50%. Labs reviewed. Renal parameters stable. Continue per current treatment plan and consultants. Medication list reviewed. July 13: FiO2 60% unchanged. Labs reviewed. Renal parameters stable. Medication list reviewed. Continue per consultants. July 12: Full code. Labs reviewed. Normal electrolytes addressed. Continue per pulmonary. Medication list reviewed. July 11: Remains full code. On ventilator. FiO2 down to 65%. Renal parameters stable. Low magnesium addressed. Continue her current management. July 10: Full code. On ventilator. FiO2 70%. Hemoglobin mid sevens. Renal parameters stable. Continue per consultants. July 09: Labs reviewed. Renal parameters stable. FiO2 80% unchanged. Continue per pulmonary. July 08: Labs reviewed. Renal parameters and electrolytes stable. ABG suggestive of high PCO2. At this time patient is on FiO2 of 80%. Continue per pulmonary. Continue to monitor renal parameters. July 07: No CHEM panel drawn today. More potassium given. Continue to monitor renal parameters. Continue per consultants. Discussed with RAKEL Veras. July 06: Low potassium addressed. Albumin bolus for low BP given. Patient remains full code. Continue to monitor electrolytes and renal parameters. Continue per consultants. 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 July 05: Trach to vent. FiO2 80%. Renal parameters stable. PCO2 remains high at 44. Continue to monitor renal parameters. July 04: Patient now trach. Full code. Labs reviewed. Renal parameters stable. Low magnesium addressed. July 03: Intubated. Full code. Labs reviewed. Abnormal electrolytes addressed. Continue per consultants. Overall status unchanged. July 02: Remains intubated. Remains full code. Remains on FiO2 of 70%. Labs reviewed. Abnormal electrolytes addressed. Continue per pulmonary. July 01: Remains on 70% FiO2. Full code. Intubated on ventilator. Retaining CO2. Discussed with RN. Will do ABG today. Albumin bolus given. 1 dose of Diamox given. June 30: Status quo. Labs reviewed. Abnormal electrolytes addressed. Remains full code. Remains on ventilator. Magnesium sulfate 4 gram IVPB given. June 29: Full code. Intubated on ventilator. Labs reviewed. Stable from renal standpoint of view. Continue per consultants. June 28: Remains full code. Remains intubated on ventilator. Labs reviewed. Vitamin D supplement ordered. Continue to monitor renal parameters. Continue per consultants. June 27: Remains full code. Intubated on ventilator. Labs reviewed. Abnormal electrolyte addressed. Continue to monitor renal parameters and electrolytes. Continue per consultants. June 26: Labs reviewed. Remains full code. Remains intubated. Back on NGT feeding. Continue to monitor renal parameters. June 25: Labs reviewed. Renal parameters stable. Remains full code. Due to positional status patient could not be fed via NG tube. Starting TPN? Is being entertained. Continue per consultants. June 24: Labs reviewed. Renal parameters stable. Remains full code. Remains intubated on ventilator. Continue per consultants. June 23: Labs reviewed. Renal parameters stable. Discussed with RN. Abnormal electrolyte addressed. Remains full code. Remains on ventilator. Continue per consultants. June 22: Labs reviewed. Low potassium addressed. Discussed with RAKEL Moran. Patient full code. Remains on ventilator. Continue to monitor renal parameters. June 21. Labs reviewed. Abnormal electrolyte addressed. Full code. Remains on ventilator. Medication list reviewed. Continue per pulmonary management. DC IV fluid, resume Lasix daily, check chest x-ray. June 20: Labs reviewed. Abnormal electrolytes. Patient remains full code. Continue per consultants. Noted and addressed June 19: Labs reviewed. Abnormal electrolytes noted and addressed. Remains intubated on ventilator. Remains full code. June 18: Labs reviewed. Remains intubated on ventilator. Full code. Abnormal electrolyte addressed. Continue as is. June 17: Labs reviewed. Abnormal electrolytes addressed. Patient remains full code and intubated on ventilator. Continue per consultants. Renal pa rameters are within normal limits. June 16: Labs reviewed. Potassium chloride replaced. Remains full code. Remains intubated on ventilator. Continue per consultants. Continue to monitor renal parameters. June 15: Labs reviewed. Serum creatinine 1. Stable from renal standpoint to view. Continue per consultants. June 14: Labs reviewed. Full code. Serum creatinine of 3.5 down to 1.4. Low potassium addressed. Continue per current treatment plan. Continue to monitor renal parameters. Midodrine started. Albumin bolus given. Previously: DC Lasix drip Increase Protonix dose Monitor renal parameters, electrolytes Per orders Subjective ROS Limited/Unobtainable: Yes Objective Objective Last 24 Hour Vital Signs Date Time Temp Pulse Resp B/P (MAP) Pulse Ox O2 Delivery O2 Flow Rate FiO2 07/19/20 10:00 98 22 104/62 (76) 100 07/19/20 09:00 99.0 107 26 93/63 (73) 96 07/19/20 08:15 30 105/61 Mechanical Ventilator 50 07/19/20 08:00 Mechanical Ventilator Mechanical Ventilator 07/19/20 08:00 40 07/19/20 08:00 27 100/57 Mechanical Ventilator 50 07/19/20 08:00 27 100/27 Mechanical Ventilator 50 07/19/20 07:55 20 104/63 Mechanical Ventilator 50 07/19/20 07:45 104 32 104/63 (77) 100 07/19/20 07:30 99 23 95/58 (70) 100 07/19/20 07:15 105 25 111/67 (82) 99 07/19/20 07:15 101 25 50 07/19/20 07:00 23 96/55 Mechanical Ventilator 50 07/19/20 07:00 23 96/55 Mechanical Ventilator 50 07/19/20 07:00 100 23 96/55 (69) 99 07/19/20 06:45 102 24 94/57 (69) 99 07/19/20 06:30 102 24 90/60 (70) 100 07/19/20 06:15 102 21 93/57 (69) 99 07/19/20 06:00 104 68 07/19/20 06:00 107 25 98 07/19/20 06:00 107 25 93/57 (69) 98 07/19/20 05:30 105 21 106/68 (81) 99 07/19/20 05:22 111 24 50 07/19/20 05:03 22 88/52 Mechanical Ventilator 50 07/19/20 05:00 105 22 88/52 (64) 98 07/19/20 04:30 107 22 86/56 (66) 98 07/19/20 04:00 113 07/19/20 04:00 40 07/19/20 04:00 113 26 95/57 (70) 98 07/19/20 04:00 Mechanical Ventilator Mechanical Ventilator 07/19/20 03:02 117 31 50 07/19/20 03:00 117 27 103/64 (77) 100 07/19/20 02:46 117 24 91/55 (67) 97 07/19/20 02:45 117 24 87/51 (63) 98 07/19/20 02:32 117 24 88/57 (67) 98 07/19/20 02:30 119 24 86/64 (71) 98 07/19/20 02:15 122 25 106/61 (76) 98 07/19/20 02:00 123 25 94/56 (69) 99 07/19/20 01:30 129 30 104/61 (75) 95 07/19/20 01:00 138 25 107/71 (83) 93 07/19/20 00:30 137 26 108/67 (81) 95 07/19/20 00:09 134 29 40 50 07/19/20 00:00 148 40 119/69 (86) 78 07/19/20 00:00 40 07/19/20 00:00 Mechanical Ventilator Mechanical Ventilator 07/19/20 00:00 148 07/18/20 23:30 139 36 124/68 (86) 92 07/18/20 23:00 146 32 120/69 (86) 84 07/18/20 22:53 143 31 40 40 07/18/20 22:30 145 31 111/76 (88) 86 07/18/20 22:00 136 42 127/71 (89) 90 07/18/20 21:30 133 26 117/75 (89) 82 07/18/20 21:20 120 36 40 40 07/18/20 21:00 127 23 125/69 (87) 83 07/18/20 20:30 111 21 100/67 (78) 96 07/18/20 20:00 111 07/18/20 20:00 111 27 103/64 (77) 96 07/18/20 20:00 27 103/64 Mechanical Ventilator 40 07/18/20 20:00 27 103/64 Mechanical Ventilator 40 07/18/20 20:00 40 07/18/20 20:00 Mechanical Ventilator Mechanical Ventilator 07/18/20 19:10 118 38 40 40 07/18/20 19:00 32 107/64 Mechanical Ventilator 40 07/18/20 19:00 32 107/64 Mechanical Ventilator 40 07/18/20 19:00 115 35 98/62 (74) 91 07/18/20 18:40 27 115/71 Mechanical Ventilator 40 07/18/20 18:30 120 27 115/71 (86) 85 07/18/20 18:00 29 98/61 Mechanical Ventilator 40 07/18/20 18:00 29 98/61 Mechanical Ventilator 40 07/18/20 18:00 109 31 101/60 (74) 98 07/18/20 17:30 119 26 95/73 (80) 90 07/18/20 17:00 100 22 105/67 (80) 98 07/18/20 17:00 27 100/68 Mechanical Ventilator 40 07/18/20 17:00 27 100/68 Mechanical Ventilator 40 07/18/20 16:00 98.7 100 29 104/71 (82) 98 07/18/20 16:00 103 07/18/20 16:00 40 07/18/20 16:00 Mechanical Ventilator Mechanical Ventilator 07/18/20 16:00 29 106/69 Mechanical Ventilator 40 07/18/20 16:00 29 106/69 Mechanical Ventilator 40 07/18/20 15:49 101 28 40 07/18/20 15:30 97 28 103/68 (80) 98 07/18/20 15:00 96 22 103/69 (80) 100 07/18/20 15:00 25 101/67 Mechanical Ventilator 40 07/18/20 15:00 25 101/67 Mechanical Ventilator 40 07/18/20 14:30 98 24 109/63 (78) 97 07/18/20 14:00 27 111/65 Mechanical Ventilator 40 07/18/20 14:00 27 111/65 Mechanical Ventilator 40 07/18/20 14:00 100 28 99/70 (80) 92 07/18/20 13:30 90 25 101/71 (81) 100 07/18/20 13:00 90 23 102/72 (82) 100 07/18/20 13:00 25 104/72 Mechanical Ventilator 40 07/18/20 13:00 25 104/72 40 07/18/20 12:30 90 23 109/67 (81) 100 07/18/20 12:00 98.8 94 28 107/68 (81) 100 07/18/20 12:00 Mechanical Ventilator Mechanical Ventilator 07/18/20 12:00 25 104/65 Mechanical Ventilator 40 07/18/20 12:00 25 104/65 Mechanical Ventilator 40 07/18/20 12:00 92 07/18/20 12:00 40 07/18/20 11:30 91 23 97/66 (76) 100 07/18/20 11:00 90 21 107/68 (81) 100 07/18/20 11:00 24 116/80 Mechanical Ventilator 40 07/18/20 11:00 24 116/80 Mechanical Ventilator 40 Intake and Output 07/18/20 07/19/20 19:00 07:00 Intake Total 1313.5 ml 605 ml Output Total 550 ml 380 ml Balance 763.5 ml 225 ml Free Water 180 ml IV Total 413.5 ml 185 ml Tube Feeding 720 ml 420 ml Output Urine Total 550 ml 380 ml # Bowel Movements 6 3 Current Medications Medications (Trade) Dose Ordered Sig/Zelda Route PRN Reason Start Time Stop Time Status Last Admin Dose Admin Acetaminophen (Tylenol) 650 mg Q4H PRN NG Temp >100.5 06/29/20 10:15 07/29/20 10:14 07/19/20 07:59 Acetaminophen (Tylenol) 650 mg Q6H PRN NG Mild Pain (Pain Scale 1-3) 06/29/20 10:15 07/29/20 10:14 Cefepime HCl 2 gm/ Dextrose 55 ml @ 110 mls/hr EVERY 12 HOURS IVPB 07/19/20 11:30 07/26/20 11:29 Chlorhexidine Gluconate (Inna-Hex 2%) 1 applic DAILY@2000 TOPIC 05/30/20 20:00 08/28/20 19:59 07/18/20 20:12 Dextrose (Dextrose 50%) 25 ml Q30M PRN IV Hypoglycemia 06/05/20 10:45 09/03/20 10:44 Dextrose (Dextrose 50%) 50 ml Q30M PRN IV Hypoglycemia 06/05/20 10:45 09/03/20 10:44 Enoxaparin Sodium (Lovenox) 110 mg EVERY 12 HOURS SUBQ 07/17/20 21:00 10/15/20 20:59 07/18/20 21:15 Fentanyl Citrate 250 ml @ 8 mls/hr Q24H IV 07/18/20 05:30 07/20/20 05:29 07/19/20 07:55 Furosemide (Lasix) 40 mg DAILY IV 06/22/20 09:00 07/22/20 08:59 07/19/20 09:12 Guaifenesin/ Codeine Phosphate (Robitussin with codeine) 5 ml Q6H PRN NG For Cough 07/14/20 14:15 08/13/20 14:14 07/18/20 21:44 Lansoprazole (Prevacid) 30 mg DAILY GT 07/18/20 09:00 08/09/20 08:59 07/18/20 08:56 Midazolam HCl 200 ml @ 0 mls/hr Q24H PRN IV To Patient Comfort 07/17/20 12:00 07/24/20 11:59 07/19/20 05:03 Midodrine (Pro-Amatine) 10 mg Q8HR GT 06/30/20 14:00 09/12/20 13:59 07/19/20 06:45 Norepinephrine Bitartrate 250 ml @ 7.5 mls/hr Q24H IV 07/17/20 22:15 07/20/20 22:05 07/17/20 22:15 Potassium Chloride (K-Dur) 40 meq TWICE A DAY GT 07/17/20 12:15 10/15/20 12:14 07/18/20 17:11 Quetiapine Fumarate (SEROqueL) 50 mg Q12HR GT 07/16/20 13:30 08/30/20 13:29 07/18/20 21:13 Vitamin D (Vitamin D) 5,000 unit DAILY GT 06/28/20 09:00 07/28/20 08:59 07/18/20 08:57 Laboratory Tests 07/19/20 03:50: White Blood Count 21.7#H, Red Blood Count 3.03L, Hemoglobin 8.6L, Hematocrit 27.4L, Mean Corpuscular Volume 90, Mean Corpuscular Hemoglobin 28.2, Mean Corpuscular Hemoglobin Concent 31.3L, Red Cell Distribution Width 16.9H, Platelet Count 355, Mean Platelet Volume 7.4, Neutrophils (%) (Auto) , Lymphoc ytes (%) (Auto) , Monocytes (%) (Auto) , Eosinophils (%) (Auto) , Basophils (%) (Auto) , Neutrophils % (Manual) [Pending], Lymphocytes % (Manual) [Pending], Platelet Estimate [Pending], Platelet Morphology [Pending], Prothrombin Time 13.3H, Prothromb Time International Ratio 1.2H, Sodium Level 139, Potassium Level 3.5, Chloride Level 96L, Carbon Dioxide Level 36H, Anion Gap 7, Blood Urea Nitrogen 17, Creatinine 0.6, Estimat Glomerular Filtration Rate > 60, Glucose Level 163H, Calcium Level 9.9, Phosphorus Level 4.5, Magnesium Level 1.5L, Total Bilirubin 0.7, Aspartate Amino Transf (AST/SGOT) 49H, Alanine Aminotransferase (ALT/SGPT) 27, Alkaline Phosphatase 80, Total Protein 7.7, Albumin 2.3L, Globulin 5.4, Albumin/Globulin Ratio 0.4L Height (Feet): 5 Height (Inches): 5.00 Weight (Pounds): 223 General Appearance: no apparent distress EENT: other - Trach to vent Cardiovascular: tachycardia Respiratory/Chest: decreased breath sounds Abdomen: distended Rigo Tyler MD Jul 19, 2020 10:40
--- NOTE | 2020-07-19 11:00 | NUR ---
NURSE NOTES: Dr Tyler at bedside,updated re pt's status,mg 1.5 ,mg replacement ordered.
--- NOTE | 2020-07-19 11:30 | NUR ---
NURSE NOTES: Dr Burger at bed side,updated re pt's status,no orders given.
--- NOTE | 2020-07-19 11:41 | Diagnostic Imaging Report ---
Procedure: XRAY Chest 1v Reason for study: Reason For Exam: [id number] Comparison films: 07/14/2020. FINDINGS: Radiograph is underexposed. Tracheostomy remains in place. NG tube also unchanged. There is likely no change in bilateral alveolar disease given difference in technique. Cardiac and mediastinal silhouette are within normal limits. CP angles are sharp. The bony thorax appear unremarkable. IMPRESSION: NO SIGNIFICANT CHANGE COMPARED TO PREVIOUS EXAM.
[2020-07-19] MEDS: Cefepime HCl 2 GM in D5W 55 ML IVPB SCH ×2 (12:11→20:27)
--- NOTE | 2020-07-19 12:28 | NUR ---
RADIOLOGY DEPT., CHEST X-RAY DONE.-P.DYE
--- NOTE | 2020-07-19 13:00 | NUR ---
NURSE NOTES: GI Lab Team at bedside,Pt 's WBC high 21,Dr Erickson cancelled EGD,to reschedule on Wednesday,pt's NGT feeding resumed.
--- NOTE | 2020-07-19 13:25 | Pre-Procedure Note/Attestation ---
Pre-Procedure Note/Attestation Complete Prior to Procedure Planned Procedure: not applicable Procedure Narrative: egd/peg Indications for Procedure Pre-Operative Diagnosis: dysphagia Attestation I attest that I discussed the nature of the procedure; its benefits; risks and complications; and alternatives (and the risks and benefits of such alternatives), prior to the procedure, with the patient (or the patient's legal renewals representative). I attest that, if there was a reasonable possibility of needing a blood transfu alexandra, the patient (or the patient's legal renewals representative) was given the [facility] standardized written summary, pursuant to the Howie Bill Blood Safety Act ([place] Health and Safety Code # 1645, as amended). I attest that I re-evaluated the patient just prior to the surgery and that there has been no change in the patient's H&P, except as documented below: Ryan Strong MD Jul 19, 2020 13:25
--- NOTE | 2020-07-19 13:41 | General Progress Note ---
Subjective ROS Limited/Unobtainable: No Allergies: Coded Allergies: No Known Allergies (Unverified , 05/28/20) Objective Last 24 Hour Vital Signs Date Time Temp Pulse Resp B/P (MAP) Pulse Ox O2 Delivery O2 Flow Rate FiO2 07/19/20 12:00 40 07/19/20 12:00 Mechanical Ventilator Mechanical Ventilator 07/19/20 12:00 99.2 106 24 108/64 (79) 98 07/19/20 11:08 98 26 117/72 (87) 100 07/19/20 10:00 98 22 104/62 (76) 100 07/19/20 09:00 99.0 107 26 93/63 (73) 96 07/19/20 08:29 99.0 07/19/20 08:15 30 105/61 Mechanical Ventilator 50 07/19/20 08:00 Mechanical Ventilator Mechanical Ventilator 07/19/20 08:00 40 07/19/20 08:00 27 100/57 Mechanical Ventilator 50 07/19/20 08:00 27 100/27 Mechanical Ventilator 50 07/19/20 08:00 100 07/19/20 07:55 20 104/63 Mechanical Ventilator 50 07/19/20 07:45 104 32 104/63 (77) 100 07/19/20 07:30 99 23 95/58 (70) 100 07/19/20 07:15 105 25 111/67 (82) 99 07/19/20 07:15 101 25 50 07/19/20 07:00 23 96/55 Mechanical Ventilator 50 07/19/20 07:00 23 96/55 Mechanical Ventilator 50 07/19/20 07:00 100 23 96/55 (69) 99 07/19/20 06:45 102 24 94/57 (69) 99 07/19/20 06:30 102 24 90/60 (70) 100 07/19/20 06:15 102 21 93/57 (69) 99 07/19/20 06:00 104 68 07/19/20 06:00 107 25 98 07/19/20 06:00 107 25 93/57 (69) 98 07/19/20 05:30 105 21 106/68 (81) 99 07/19/20 05:22 111 24 50 07/19/20 05:03 22 88/52 Mechanical Ventilator 50 07/19/20 05:00 105 22 88/52 (64) 98 07/19/20 04:30 107 22 86/56 (66) 98 07/19/20 04:00 113 07/19/20 04:00 40 07/19/20 04:00 113 26 95/57 (70) 98 07/19/20 04:00 Mechanical Ventilator Mechanical Ventilator 07/19/20 03:02 117 31 50 07/19/20 03:00 117 27 103/64 (77) 100 07/19/20 02:46 117 24 91/55 (67) 97 07/19/20 02:45 117 24 87/51 (63) 98 07/19/20 02:32 117 24 88/57 (67) 98 07/19/20 02:30 119 24 86/64 (71) 98 07/19/20 02:15 122 25 106/61 (76) 98 07/19/20 02:00 123 25 94/56 (69) 99 07/19/20 01:30 129 30 104/61 (75) 95 07/19/20 01:00 138 25 107/71 (83) 93 07/19/20 00:30 137 26 108/67 (81) 95 07/19/20 00:09 134 29 40 50 07/19/20 00:00 148 40 119/69 (86) 78 07/19/20 00:00 40 07/19/20 00:00 Mechanical Ventilator Mechanical Ventilator 07/19/20 00:00 148 07/18/20 23:30 139 36 124/68 (86) 92 07/18/20 23:00 146 32 120/69 (86) 84 07/18/20 22:53 143 31 40 40 07/18/20 22:30 145 31 111/76 (88) 86 07/18/20 22:00 136 42 127/71 (89) 90 07/18/20 21:30 133 26 117/75 (89) 82 07/18/20 21:20 120 36 40 40 07/18/20 21:00 127 23 125/69 (87) 83 07/18/20 20:30 111 21 100/67 (78) 96 07/18/20 20:00 111 07/18/20 20:00 111 27 103/64 (77) 96 07/18/20 20:00 27 103/64 Mechanical Ventilator 40 07/18/20 20:00 27 103/64 Mechanical Ventilator 40 07/18/20 20:00 40 07/18/20 20:00 Mechanical Ventilator Mechanical Ventilator 07/18/20 19:10 118 38 40 40 07/18/20 19:00 32 107/64 Mechanical Ventilator 40 07/18/20 19:00 32 107/64 Mechanical Ventilator 40 07/18/20 19:00 115 35 98/62 (74) 91 07/18/20 18:40 27 115/71 Mechanical Ventilator 40 07/18/20 18:30 120 27 115/71 (86) 85 07/18/20 18:00 29 98/61 Mechanical Ventilator 40 07/18/20 18:00 29 98/61 Mechanical Ventilator 40 07/18/20 18:00 109 31 101/60 (74) 98 07/18/20 17:30 119 26 95/73 (80) 90 07/18/20 17:00 100 22 105/67 (80) 98 07/18/20 17:00 27 100/68 Mechanical Ventilator 40 07/18/20 17:00 27 100/68 Mechanical Ventilator 40 07/18/20 16:00 98.7 100 29 104/71 (82) 98 07/18/20 16:00 103 07/18/20 16:00 40 07/18/20 16:00 Mechanical Ventilator Mechanical Ventilator 07/18/20 16:00 29 106/69 Mechanical Ventilator 40 07/18/20 16:00 29 106/69 Mechanical Ventilator 40 07/18/20 15:49 101 28 40 07/18/20 15:30 97 28 103/68 (80) 98 07/18/20 15:00 96 22 103/69 (80) 100 07/18/20 15:00 25 101/67 Mechanical Ventilator 40 07/18/20 15:00 25 101/67 Mechanical Ventilator 40 07/18/20 14:30 98 24 109/63 (78) 97 07/18/20 14:00 27 111/65 Mechanical Ventilator 40 07/18/20 14:00 27 111/65 Mechanical Ventilator 40 07/18/20 14:00 100 28 99/70 (80) 92 Intake and Output 07/18/20 07/19/20 19:00 07:00 Intake Total 1313.5 ml 605 ml Output Total 550 ml 380 ml Balance 763.5 ml 225 ml Free Water 180 ml IV Total 413.5 ml 185 ml Tube Feeding 720 ml 420 ml Output Urine Total 550 ml 380 ml # Bowel Movements 6 3 Laboratory Tests 07/19/20 03:50: White Blood Count 21.7#H, Red Blood Count 3.03L, Hemoglobin 8.6L, Hematocrit 27.4L, Mean Corpuscular Volume 90, Mean Corpuscular Hemoglobin 28.2, Mean Corpuscular Hemoglobin Concent 31.3L, Red Cell Distribution Width 16.9H, Platelet Count 355, Mean Platelet Volume 7.4, Neutrophils (%) (Auto) , Lymphocytes (%) (Auto) , Monocytes (%) (Auto) , Eosinophils (%) (Auto) , Basophils (%) (Auto) , Differential Total Cells Counted 100, Neutrophils % (Manual) 77H, Lymphocytes % (Manual) 13L, Monocytes % (Manual) 4, Eosinophils % (Manual) 0, Basophils % (Manual) 0, Band Neutrophils 6, Platelet Estimate Adequate, Platelet Morphology Normal, Hypochromasia 1+, Anisocytosis 1+, Stomatocytes Occasional, Prothrombin Time 13.3H, Prothromb Time International Ratio 1.2H, Sodium Level 139, Potassium Level 3.5, Chloride Level 96L, Carbon Dioxide Level 36H, Anion Gap 7, Blood Urea Nitrogen 17, Creatinine 0.6, Estimat Glomerular Filtration Rate > 60, Glucose Level 163H, Calcium Level 9.9, Phosphorus Level 4.5, Magnesium Level 1.5L, Total Bilirubin 0.7, Aspartate Amino Transf (AST/SGOT) 49H, Alanine Aminotransferase (ALT/SGPT) 27, Alkaline Phosphatase 80, Total Protein 7.7, Albumin 2.3L, Globulin 5.4, Albumin/Globulin Ratio 0.4L Height (Feet): 5 Height (Inches): 5.00 Weight (Pounds): 223 General Appearance: no apparent distress EENT: normal ENT inspection Neck: supple Cardiovascular: normal rate Respiratory/Chest: decreased breath sounds Abdomen: hypoactive bowel sounds Extremities: non-tender Assessment/Plan Problem List: (1) Morbid obesity ICD Codes: E66.01 - Morbid (severe) obesity due to excess calories SNOMED: 033335954 (2) DEVENDRA (acute kidney injury) ICD Codes: N17.9 - Acute kidney failure, unspecified SNOMED: 9426623, 28136958 (3) Diabetes mellitus out of control ICD Codes: E11.65 - Type 2 diabetes mellitus with hyperglycemia SNOMED: 35346835, 503781640 (4) Pneumonia due to COVID-19 virus ICD Codes: U07.1 - COVID-19; J12.82 - Pneumonia due to coronavirus disease 2018 SNOMED: 773708472546898153 (5) Hypoxia ICD Codes: R09.02 - Hypoxemia SNOMED: 999139598 (6) Respiratory failure ICD Codes: J96.90 - Respiratory failure, unspecified, unspecified whether with hypoxia or hypercapnia SNOMED: 611559005 Status: unchanged Assessment/Plan: PEG was canceled today due to WBC jump from 10 to 21 [facility] plan PEG on Wednesday if stable Ryan Strong MD Jul 19, 2020 13:41
--- NOTE | 2020-07-19 13:43 | Anethesia Preoperative Eval ---
Anesthesia Pre-op PMH/ROS General Date of Evaluation: Jul 19, 2020 Time of Evaluation: 13:34 Anesthesiologist: Vesna ASA Score: ASA 4 Mallampati Score Class I : Soft palate, uvula, fauces, pillars visible Class II: Soft palate, uvula, fauces visible Class III: Soft palate, base of uvula visible Class IV: Only hard plate visible Mallampati Classification: Class III Surgeon: Stefania Diagnosis: ABD Pain Surgical Procedure: PEG Anesthesia History: none Family History: no anesthesia problems Allergies: Coded Allergies: No Known Allergies (Unverified , 05/28/20) Medications: see eMAR Patient NPO?: Yes NPO Date: Jul 04, 2020 NPO Time: 00:01 Past Medical History Cardiovascular: Reports: HTN Endocrine: Reports: DM Hematology/Immune: Reports: DVT Other: obesity - BMI 38 Anesthesia Pre-op Phys. Exam Physician Exam Last Vital Signs Date Time Temp Pulse Resp B/P (MAP) Pulse Ox O2 Delivery O2 Flow Rate FiO2 07/19/20 12:00 40 07/19/20 12:00 Mechanical Ventilator Mechanical Ventilator 07/19/20 12:00 99.2 106 24 108/64 (79) 98 07/18/20 05:30 31.0 Constitutional: NAD Neurologic: CN 2-12 intact Cardiovascular: RRR Respiratory: CTA Gastrointestinal: S/NT/ND Airway Exam Mallampati Score: Class III MO: limited ROM: limited Teeth: missing Anesthesia Pre-op A/P Labs Hematology Test 07/19/20 03:50 White Blood Count 21.7 K/UL (4.8-10.8) #H Red Blood Count 3.03 M/UL (4.20-5.40) L Hemoglobin 8.6 G/DL (12.0-16.0) L Hematocrit 27.4 % (37.0-47.0) L Mean Corpuscular Volume 90 FL (80-99) Mean Corpuscular Hemoglobin 28.2 PG (27.0-31.0) Mean Corpuscular Hemoglobin Concent 31.3 G/DL (32.0-36.0) L Red Cell Distribution Width 16.9 % (11.6-14.8) H Platelet Count 355 K/UL (150-450) Mean Platelet Volume 7.4 FL (6.5-10.1) Neutrophils (%) (Auto) % (45.0-75.0) Lymphocytes (%) (Auto) % (20.0-45.0) Monocytes (%) (Auto) % (1.0-10.0) Eosinophils (%) (Auto) % (0.0-3.0) Basophils (%) (Auto) % (0.0-2.0) Differential Total Cells Counted 100 Neutrophils % (Manual) 77 % (45-75) H Lymphocytes % (Manual) 13 % (20-45) L Monocytes % (Manual) 4 % (1-10) Eosinophils % (Manual) 0 % (0-3) Basophils % (Manual) 0 % (0-2) Band Neutrophils 6 % (0-8) Platelet Estimate Adequate Platelet Morphology Normal Hypochromasia 1+ Anisocytosis 1+ Stomatocytes Occasional Coagulation Test 07/19/20 03:50 Prothrombin Time 13.3 SEC (9.30-11.50) H Prothromb Time International Ratio 1.2 (0.9-1.1) H Chemistry Test 07/19/20 03:50 Sodium Level 139 MMOL/L (136-145) Potassium Level 3.5 MMOL/L (3.5-5.1) Chloride Level 96 MMOL/L (98-107) L Carbon Dioxide Level 36 MMOL/L (21-32) H Anion Gap 7 mmol/L (5-15) Blood Urea Nitrogen 17 mg/dL (7-18) Creatinine 0.6 MG/DL (0.55-1.30) Estimat Glomerular Filtration Rate > 60 mL/min (>60) Glucose Level 163 MG/DL (74-106) H Calcium Level 9.9 MG/DL (8.5-10.1) Phosphorus Level 4.5 MG/DL (2.5-4.9) Magnesium Level 1.5 MG/DL (1.8-2.4) L Total Bilirubin 0.7 MG/DL (0.2-1.0) Aspartate Amino Transf (AST/SGOT) 49 U/L (15-37) H Alanine Aminotransferase (ALT/SGPT) 27 U/L (12-78) Alkaline Phosphatase 80 U/L (46-116) Total Protein 7.7 G/DL (6.4-8.2) Albumin 2.3 G/DL (3.4-5.0) L Globulin 5.4 g/dL Albumin/Globulin Ratio 0.4 (1.0-2.7) L Risk Assessment & Plan Assessment: ASA 4 Plan: TIVA Status Change Before Surgery: Silvino Kerns MD Jul 19, 2020 13:43
--- NOTE | 2020-07-19 15:34 | Cardiac Electrophysiology PN ---
Assessment/Plan Assessment/Plan 1. Respiratory failure due to COVID-19 pneumonia. On tracheostomy and is on the ventilator 40% FiO2. Echo EF 60% 2. Right lower extremity DVT. Follow up by Hematology. May need IVC filter placement. 3. Hypotension, on midodrine 10 mg 3 times daily. On Lasix 40 IV daily 4. Dysphagia. NPO for PEG DW RN Subjective Subjective In ICU on the Vent via Trach 50% Fio2 in SR. No events NPO for PEG today Objective Last 24 Hour Vital Signs Date Time Temp Pulse Resp B/P (MAP) Pulse Ox O2 Delivery O2 Flow Rate FiO2 07/19/20 15:00 18 100/59 Mechanical Ventilator 50 07/19/20 15:00 18 100/59 Mechanical Ventilator 50 07/19/20 14:11 20 106/60 Mechanical Ventilator 50 07/19/20 14:00 21 103/60 Mechanical Ventilator 50 07/19/20 14:00 21 103/60 Mechanical Ventilator 50 07/19/20 13:00 25 110/66 Mechanical Ventilator 50 07/19/20 13:00 25 110/66 Mechanical Ventilator 50 07/19/20 13:00 103 25 110/66 (81) 100 07/19/20 12:11 22 110/65 Mechanical Ventilator 50 07/19/20 12:00 40 07/19/20 12:00 24 108/64 Mechanical Ventilator 50 07/19/20 12:00 24 108/64 Mechanical Ventilator 50 07/19/20 12:00 Mechanical Ventilator Mechanical Ventilator 07/19/20 12:00 99.2 106 24 108/64 (79) 98 07/19/20 11:15 24 103/60 Mechanical Ventilator 50 07/19/20 11:08 98 26 117/72 (87) 100 07/19/20 11:00 23 106/60 Mechanical Ventilator 50 07/19/20 11:00 24 103/64 Mechanical Ventilator 50 07/19/20 10:45 23 107/63 Mechanical Ventilator 50 07/19/20 10:00 98 22 104/62 (76) 100 07/19/20 10:00 24 102/67 Mechanical Ventilator 50 07/19/20 10:00 24 102/67 Mechanical Ventilator 50 07/19/20 09:45 22 110/65 Mechanical Ventilator 50 07/19/20 09:30 22 102/65 Mechanical Ventilator 50 07/19/20 09:15 27 98/61 Mechanical Ventilator 50 07/19/20 09:00 99.0 107 26 93/63 (73) 96 07/19/20 09:00 24 114/70 Mechanical Ventilator 50 07/19/20 09:00 22 114/70 Mechanical Ventilator 50 07/19/20 08:45 24 99/63 Mechanical Ventilator 50 07/19/20 08:30 29 100/61 Mechanical Ventilator 50 07/19/20 08:29 99.0 07/19/20 08:15 30 105/61 Mechanical Ventilator 50 07/19/20 08:00 Mechanical Ventilator Mechanical Ventilator 07/19/20 08:00 40 07/19/20 08:00 27 100/57 Mechanical Ventilator 50 07/19/20 08:00 27 100/27 Mechanical Ventilator 50 07/19/20 08:00 100 07/19/20 07:55 20 104/63 Mechanical Ventilator 50 07/19/20 07:45 104 32 104/63 (77) 100 07/19/20 07:30 99 23 95/58 (70) 100 07/19/20 07:15 105 25 111/67 (82) 99 07/19/20 07:15 101 25 50 07/19/20 07:00 23 96/55 Mechanical Ventilator 50 07/19/20 07:00 23 96/55 Mechanical Ventilator 50 07/19/20 07:00 100 23 96/55 (69) 99 07/19/20 06:45 102 24 94/57 (69) 99 07/19/20 06:30 102 24 90/60 (70) 100 07/19/20 06:15 102 21 93/57 (69) 99 07/19/20 06:00 104 68 07/19/20 06:00 107 25 98 07/19/20 06:00 107 25 93/57 (69) 98 07/19/20 05:30 105 21 106/68 (81) 99 07/19/20 05:22 111 24 50 07/19/20 05:03 22 88/52 Mechanical Ventilator 50 07/19/20 05:00 105 22 88/52 (64) 98 07/19/20 04:30 107 22 86/56 (66) 98 07/19/20 04:00 113 07/19/20 04:00 40 07/19/20 04:00 113 26 95/57 (70) 98 07/19/20 04:00 Mechanical Ventilator Mechanical Ventilator 07/19/20 03:02 117 31 50 07/19/20 03:00 117 27 103/64 (77) 100 07/19/20 02:46 117 24 91/55 (67) 97 07/19/20 02:45 117 24 87/51 (63) 98 07/19/20 02:32 117 24 88/57 (67) 98 07/19/20 02:30 119 24 86/64 (71) 98 07/19/20 02:15 122 25 106/61 (76) 98 07/19/20 02:00 123 25 94/56 (69) 99 07/19/20 01:30 129 30 104/61 (75) 95 07/19/20 01:00 138 25 107/71 (83) 93 07/19/20 00:30 137 26 108/67 (81) 95 07/19/20 00:09 134 29 40 50 07/19/20 00:00 148 40 119/69 (86) 78 07/19/20 00:00 40 07/19/20 00:00 Mechanical Ventilator Mechanical Ventilator 07/19/20 00:00 148 07/18/20 23:30 139 36 124/68 (86) 92 07/18/20 23:00 146 32 120/69 (86) 84 07/18/20 22:53 143 31 40 40 07/18/20 22:30 145 31 111/76 (88) 86 07/18/20 22:00 136 42 127/71 (89) 90 07/18/20 21:30 133 26 117/75 (89) 82 07/18/20 21:20 120 36 40 40 07/18/20 21:00 127 23 125/69 (87) 83 07/18/20 20:30 111 21 100/67 (78) 96 07/18/20 20:00 111 07/18/20 20:00 111 27 103/64 (77) 96 07/18/20 20:00 27 103/64 Mechanical Ventilator 40 07/18/20 20:00 27 103/64 Mechanical Ventilator 40 07/18/20 20:00 40 07/18/20 20:00 Mechanical Ventilator Mechanical Ventilator 07/18/20 19:10 118 38 40 40 07/18/20 19:00 32 107/64 Mechanical Ventilator 40 07/18/20 19:00 32 107/64 Mechanical Ventilator 40 07/18/20 19:00 115 35 98/62 (74) 91 07/18/20 18:40 27 115/71 Mechanical Ventilator 40 07/18/20 18:30 120 27 115/71 (86) 85 07/18/20 18:00 29 98/61 Mechanical Ventilator 40 07/18/20 18:00 29 98/61 Mechanical Ventilator 40 07/18/20 18:00 109 31 101/60 (74) 98 07/18/20 17:30 119 26 95/73 (80) 90 07/18/20 17:00 100 22 105/67 (80) 98 07/18/20 17:00 27 100/68 Mechanical Ventilator 40 07/18/20 17:00 27 100/68 Mechanical Ventilator 40 07/18/20 16:00 98.7 100 29 104/71 (82) 98 07/18/20 16:00 103 07/18/20 16:00 40 07/18/20 16:00 Mechanical Ventilator Mechanical Ventilator 07/18/20 16:00 29 106/69 Mechanical Ventilator 40 07/18/20 16:00 29 106/69 Mechanical Ventilator 40 07/18/20 15:49 101 28 40 Intake and Output 07/18/20 07/19/20 19:00 07:00 Intake Total 1313.5 ml 605 ml Output Total 550 ml 380 ml Balance 763.5 ml 225 ml Free Water 180 ml IV Total 413.5 ml 185 ml Tube Feeding 720 ml 420 ml Output Urine Total 550 ml 380 ml # Bowel Movements 6 3 Laboratory Tests Test 07/19/20 03:50 White Blood Count 21.7 K/UL (4.8-10.8) #H Red Blood Count 3.03 M/UL (4.20-5.40) L Hemoglobin 8.6 G/DL (12.0-16.0) L Hematocrit 27.4 % (37.0-47.0) L Mean Corpuscular Volume 90 FL (80-99) Mean Corpuscular Hemoglobin 28.2 PG (27.0-31.0) Mean Corpuscular Hemoglobin Concent 31.3 G/DL (32.0-36.0) L Red Cell Distribution Width 16.9 % (11.6-14.8) H Platelet Count 355 K/UL (150-450) Mean Platelet Volume 7.4 FL (6.5-10.1) Neutrophils (%) (Auto) % (45.0-75.0) Lymphocytes (%) (Auto) % (20.0-45.0) Monocytes (%) (Auto) % (1.0-10.0) Eosinophils (%) (Auto) % (0.0-3.0) Basophils (%) (Auto) % (0.0-2.0) Differential Total Cells Counted 100 Neutrophils % (Manual) 77 % (45-75) H Lymphocytes % (Manual) 13 % (20-45) L Monocytes % (Manual) 4 % (1-10) Eosinophils % (Manual) 0 % (0-3) Basophils % (Manual) 0 % (0-2) Band Neutrophils 6 % (0-8) Platelet Estimate Adequate Platelet Morphology Normal Hypochromasia 1+ Anisocytosis 1+ Stomatocytes Occasional Prothrombin Time 13.3 SEC (9.30-11.50) H Prothromb Time International Ratio 1.2 (0.9-1.1) H Sodium Level 139 MMOL/L (136-145) Potassium Level 3.5 MMOL/L (3.5-5.1) Chloride Level 96 MMOL/L (98-107) L Carbon Dioxide Level 36 MMOL/L (21-32) H Anion Gap 7 mmol/L (5-15) Blood Urea Nitrogen 17 mg/dL (7-18) Creatinine 0.6 MG/DL (0.55-1.30) Estimat Glomerular Filtration Rate > 60 mL/min (>60) Glucose Level 163 MG/DL (74-106) H Calcium Level 9.9 MG/DL (8.5-10.1) Phosphorus Level 4.5 MG/DL (2.5-4.9) Magnesium Level 1.5 MG/DL (1.8-2.4) L Total Bilirubin 0.7 MG/DL (0.2-1.0) Aspartate Amino Transf (AST/SGOT) 49 U/L (15-37) H Alanine Aminotransferase (ALT/SGPT) 27 U/L (12-78) Alkaline Phosphatase 80 U/L (46-116) Total Protein 7.7 G/DL (6.4-8.2) Albumin 2.3 G/DL (3.4-5.0) L Globulin 5.4 g/dL Albumin/Globulin Ratio 0.4 (1.0-2.7) L Objective HEAD AND NECK: Shows status post tracheostomy.NGT in place LUNGS: Coarse rhonchi. CARDIOVASCULAR: Shows regular S1 and S2 with no gallop. ABDOMEN: Soft. EXTREMITIES: Have 1+ pitting edema. Hill Burger MD Jul 19, 2020 15:34
--- NOTE | 2020-07-19 16:00 | NUR ---
NURSE NOTES: Bed bath given ,pt with low grade fever T99.2,turned and repositioned,oral care done.
--- NOTE | 2020-07-19 17:23 | Surgery Progress Note ---
Surgery Progress Note Subjective Procedure Performed right femoral central venous line insertion Symptoms: improved Objective Last 24 Hour Vital Signs Date Time Temp Pulse Resp B/P (MAP) Pulse Ox O2 Delivery O2 Flow Rate FiO2 07/19/20 17:00 108 28 104/61 (75) 90 07/19/20 16:00 84 19 93/61 (72) 100 07/19/20 16:00 86 07/19/20 15:48 86 17 50 07/19/20 15:00 18 100/59 Mechanical Ventilator 50 07/19/20 15:00 18 100/59 Mechanical Ventilator 50 07/19/20 15:00 91 19 100/59 (73) 99 07/19/20 14:11 20 106/60 Mechanical Ventilator 50 07/19/20 14:00 103 25 110/66 (81) 100 07/19/20 14:00 21 103/60 Mechanical Ventilator 50 07/19/20 14:00 21 103/60 Mechanical Ventilator 50 07/19/20 13:00 25 110/66 Mechanical Ventilator 50 07/19/20 13:00 25 110/66 Mechanical Ventilator 50 07/19/20 13:00 103 25 110/66 (81) 100 07/19/20 12:11 22 110/65 Mechanical Ventilator 50 07/19/20 12:00 40 07/19/20 12:00 100 07/19/20 12:00 24 108/64 Mechanical Ventilator 50 07/19/20 12:00 24 108/64 Mechanical Ventilator 50 07/19/20 12:00 Mechanical Ventilator Mechanical Ventilator 07/19/20 12:00 99.2 106 24 108/64 (79) 98 07/19/20 11:15 24 103/60 Mechanical Ventilator 50 07/19/20 11:08 98 26 117/72 (87) 100 07/19/20 11:06 102 26 50 07/19/20 11:00 23 106/60 Mechanical Ventilator 50 07/19/20 11:00 24 103/64 Mechanical Ventilator 50 07/19/20 10:45 23 107/63 Mechanical Ventilator 50 07/19/20 10:00 98 22 104/62 (76) 100 07/19/20 10:00 24 102/67 Mechanical Ventilator 50 07/19/20 10:00 24 102/67 Mechanical Ventilator 50 07/19/20 09:45 22 110/65 Mechanical Ventilator 50 2/26/21 09:30 22 102/65 Mechanical Ventilator 50 07/19/20 09:15 27 98/61 Mechanical Ventilator 50 07/19/20 09:00 99.0 107 26 93/63 (73) 96 07/19/20 09:00 24 114/70 Mechanical Ventilator 50 07/19/20 09:00 22 114/70 Mechanical Ventilator 50 07/19/20 08:45 24 99/63 Mechanical Ventilator 50 07/19/20 08:30 29 100/61 Mechanical Ventilator 50 07/19/20 08:29 99.0 07/19/20 08:15 30 105/61 Mechanical Ventilator 50 07/19/20 08:00 Mechanical Ventilator Mechanical Ventilator 07/19/20 08:00 40 07/19/20 08:00 27 100/57 Mechanical Ventilator 50 07/19/20 08:00 27 100/27 Mechanical Ventilator 50 07/19/20 08:00 100 07/19/20 07:55 20 104/63 Mechanical Ventilator 50 07/19/20 07:45 104 32 104/63 (77) 100 07/19/20 07:30 99 23 95/58 (70) 100 07/19/20 07:15 105 25 111/67 (82) 99 07/19/20 07:15 101 25 50 07/19/20 07:00 23 96/55 Mechanical Ventilator 50 07/19/20 07:00 23 96/55 Mechanical Ventilator 50 07/19/20 07:00 100 23 96/55 (69) 99 07/19/20 06:45 102 24 94/57 (69) 99 07/19/20 06:30 102 24 90/60 (70) 100 07/19/20 06:15 102 21 93/57 (69) 99 07/19/20 06:00 104 68 07/19/20 06:00 107 25 98 07/19/20 06:00 107 25 93/57 (69) 98 07/19/20 05:30 105 21 106/68 (81) 99 07/19/20 05:22 111 24 50 07/19/20 05:03 22 88/52 Mechanical Ventilator 50 07/19/20 05:00 105 22 88/52 (64) 98 07/19/20 04:30 107 22 86/56 (66) 98 07/19/20 04:00 113 07/19/20 04:00 40 07/19/20 04:00 113 26 95/57 (70) 98 07/19/20 04:00 Mechanical Ventilator Mechanical Ventilator 07/19/20 03:02 117 31 50 07/19/20 03:00 117 27 103/64 (77) 100 07/19/20 02:46 117 24 91/55 (67) 97 07/19/20 02:45 117 24 87/51 (63) 98 07/19/20 02:32 117 24 88/57 (67) 98 07/19/20 02:30 119 24 86/64 (71) 98 07/19/20 02:15 122 25 106/61 (76) 98 07/19/20 02:00 123 25 94/56 (69) 99 07/19/20 01:30 129 30 104/61 (75) 95 07/19/20 01:00 138 25 107/71 (83) 93 07/19/20 00:30 137 26 108/67 (81) 95 07/19/20 00:09 134 29 40 50 07/19/20 00:00 148 40 119/69 (86) 78 07/19/20 00:00 40 07/19/20 00:00 Mechanical Ventilator Mechanical Ventilator 07/19/20 00:00 148 07/18/20 23:30 139 36 124/68 (86) 92 07/18/20 23:00 146 32 120/69 (86) 84 07/18/20 22:53 143 31 40 40 07/18/20 22:30 145 31 111/76 (88) 86 07/18/20 22:00 136 42 127/71 (89) 90 07/18/20 21:30 133 26 117/75 (89) 82 07/18/20 21:20 120 36 40 40 07/18/20 21:00 127 23 125/69 (87) 83 07/18/20 20:30 111 21 100/67 (78) 96 07/18/20 20:00 111 07/18/20 20:00 111 27 103/64 (77) 96 07/18/20 20:00 27 103/64 Mechanical Ventilator 40 07/18/20 20:00 27 103/64 Mechanical Ventilator 40 07/18/20 20:00 40 07/18/20 20:00 Mechanical Ventilator Mechanical Ventilator 07/18/20 19:10 118 38 40 40 07/18/20 19:00 32 107/64 Mechanical Ventilator 40 07/18/20 19:00 32 107/64 Mechanical Ventilator 40 07/18/20 19:00 115 35 98/62 (74) 91 07/18/20 18:40 27 115/71 Mechanical Ventilator 40 07/18/20 18:30 120 27 115/71 (86) 85 07/18/20 18:00 29 98/61 Mechanical Ventilator 40 07/18/20 18:00 29 98/61 Mechanical Ventilator 40 07/18/20 18:00 109 31 101/60 (74) 98 07/18/20 17:30 119 26 95/73 (80) 90 I&O Intake and Output 07/18/20 07/19/20 19:00 07:00 Intake Total 1313.5 ml 605 ml Output Total 550 ml 380 ml Balance 763.5 ml 225 ml Free Water 180 ml IV Total 413.5 ml 185 ml Tube Feeding 720 ml 420 ml Output Urine Total 550 ml 380 ml # Bowel Movements 6 3 Dressing: dry Wound: clean Cardiovascular: RSR Respiratory: decreased breath sounds Abdomen: soft, non-tender, present bowel sounds, non-distended Extremities: edema Laboratory Tests Test 07/19/20 03:50 White Blood Count 21.7 K/UL (4.8-10.8) #H Red Blood Count 3.03 M/UL (4.20-5.40) L Hemoglobin 8.6 G/DL (12.0-16.0) L Hematocrit 27.4 % (37.0-47.0) L Mean Corpuscular Volume 90 FL (80-99) Mean Corpuscular Hemoglobin 28.2 PG (27.0-31.0) Mean Corpuscular Hemoglobin Concent 31.3 G/DL (32.0-36.0) L Red Cell Distribution Width 16.9 % (11.6-14.8) H Platelet Count 355 K/UL (150-450) Mean Platelet Volume 7.4 FL (6.5-10.1) Neutrophils (%) (Auto) % (45.0-75.0) Lymphocytes (%) (Auto) % (20.0-45.0) Monocytes (%) (Auto) % (1.0-10.0) Eosinophils (%) (Auto) % (0.0-3.0) Basophils (%) (Auto) % (0.0-2.0) Differential Total Cells Counted 100 Neutrophils % (Manual) 77 % (45-75) H Lymphocytes % (Manual) 13 % (20-45) L Monocytes % (Manual) 4 % (1-10) Eosinophils % (Manual) 0 % (0-3) Basophils % (Manual) 0 % (0-2) Band Neutrophils 6 % (0-8) Platelet Estimate Adequate Platelet Morphology Normal Hypochromasia 1+ Anisocytosis 1+ Stomatocytes Occasional Prothrombin Time 13.3 SEC (9.30-11.50) H Prothromb Time International Ratio 1.2 (0.9-1.1) H Sodium Level 139 MMOL/L (136-145) Potassium Level 3.5 MMOL/L (3.5-5.1) Chloride Level 96 MMOL/L (98-107) L Carbon Dioxide Level 36 MMOL/L (21-32) H Anion Gap 7 mmol/L (5-15) Blood Urea Nitrogen 17 mg/dL (7-18) Creatinine 0.6 MG/DL (0.55-1.30) Estimat Glomerular Filtration Rate > 60 mL/min (>60) Glucose Level 163 MG/DL (74-106) H Calcium Level 9.9 MG/DL (8.5-10.1) Phosphorus Level 4.5 MG/DL (2.5-4.9) Magnesium Level 1.5 MG/DL (1.8-2.4) L Total Bilirubin 0.7 MG/DL (0.2-1.0) Aspartate Amino Transf (AST/SGOT) 49 U/L (15-37) H Alanine Aminotransferase (ALT/SGPT) 27 U/L (12-78) Alkaline Phosphatase 80 U/L (46-116) Total Protein 7.7 G/DL (6.4-8.2) Albumin 2.3 G/DL (3.4-5.0) L Globulin 5.4 g/dL Albumin/Globulin Ratio 0.4 (1.0-2.7) L Plan Problems: (1) Respiratory distress (2) Respiratory failure Assessment & Plan: 50-year-old female Covid positive respiratory insufficiency intubated on ventilatory support declining. Leukocytosis increase oxygen requirement. Vent settings per pulmonology reviewed identified and agree. Unfortunately further surgical invention at this time is not appropriate as patient is not a candidate and her current condition. Prognosis overall guarded. Tracheostomy can be considered in the future if recovering or shows improvement and requires unable to be weaned from ventilator support. Currently okay for nutritional optimization with NG tube. Will need significant monitoring for decubitus formation given patient's size and condition. Okay for air mattress tolerated. Turn every 2 hours as tolerated. Patient is otherwise critically ill and blood pressure labile. Will need to monitor closely.Bilateral infiltrates are again demonstrated. Stable tube and line positions. will need trach will need to wean vent first no cuff leak trach okay Improving weaning well DC planning placement much improved peg placement (3) Hypoxia (4) Pneumonia due to COVID-19 virus Assessment & Plan: ++ as per pulm and ID (5) Diabetes mellitus out of control Assessment & Plan: DAILY ESTIMATED NEEDS: Needs based on Critical care, obesity 11-14kcal/kg actual body wt (140kg) kcals/kg 8799-9540 total kcals 1.5-2.0g prot/kg IBW (64.5kg) g protein/kg 96-129 g total protein 25-30ml/kg abw (83kg) mL/kg 5808-0580 total fluid mLs NUTRITION DIAGNOSIS: Swallowing difficulty R/T respiratory failure as evidenced by pt orally intubated and sedated, on OGT feeds. CURRENT TF: Vital 1.2 goal of 60ml/hr ENTERAL NUTRITION RECOMMENDATIONS: Vital AF 1.2 @ 60ml/hr x 24 hrs to provide 1440ml, 1728kcal, 108g prot, 1168ml free water * Maintain current critical care and carb controlled TF formula of Vital AF * TF @ goal meeds 100% est kcal/prot needs * HOB over 30 degrees/ water flush per MD TF may be lowered to 55ml/hr for improved BG control while maintaining Kcal and pro needs. ADDITIONAL RECOMMENDATIONS: * Calibrated bedscale wt * Monitor Propofol rate, need for TF adjustment-> now off * Monitor BGs closely : now improved, on novolog q 6rs + NISS * Monitor lytes- K elevated, monitor need for TF change * Rec bowel regimen- now w/ rectal tube . Az Devine Jul 19, 2020 17:23
--- NOTE | 2020-07-19 18:00 | NUR ---
NURSE NOTES: Tracheal secretions suctioned PRN,no resp distress presented during the shift.
--- NOTE | 2020-07-19 19:30 | NUR ---
NURSE HAND-OFF REPORT: Latest Vital Signs: Temperature 99.0 , Pulse 100 , B/P 97 /61 , Respiratory Rate 24 , O2 SAT 100 , Mechanical Ventilator, O2 Flow Rate . Vital Sign Comment: [unstable EKG Rhythm: Sinus Tachycardia Rhythm change?: N Notified?: N Response: Latest Meyers Fall Score: 70 Fall Risk: High Risk Safety Measures: Call light Within Reach, Bed Alarm Zone 1, Side Rails Side Rails x2, Bed position Low and Locked. Fall Precautions: Yellow Socks Report given to .Travis Wilson RN.
[2020-07-19] MEDS: Dyna-Hex 2% Top Sol 2oz TOPIC SCH (19:41)
--- NOTE | 2020-07-19 19:50 | NUR ---
NURSE NOTES: PATIENT SEDATED, ON TRACH TO VENT, AC 15/TV600/FIO2 50%/PEEP 5, O2 SATURATION 92% NOTED, HR 100'S/MIN ST, NGT INTACT AND PATENT, ONGOING VITAL AF 1.2 AT 60ML/HR, NO RESIDUE STATUS, KEPT HOB 30 DEGREES AND ASPIRATION PRECAUTION, ABDOMEN SOFT, NON TENDER, RECTAL TUBE INTACT AND PATENT, F/C INTACT AND PATENT, ANNA COLOR URINE OUTED, TLC TO RIGHT FEMORAL, INTACT AND PATENT, ONGOING FENTANYL 200MCG/HR, VERSED 10MG/HR VIA TLC, KEPT RASS SCORE -2, MADE LOWER BED POSITION, ON BED ALARM AND LOCKED, ON P200 BED AND COOLING BLANKET STATUS, WILL CONTINUE TO MONITOR.
--- NOTE | 2020-07-19 21:05 | NUR ---
NURSE NOTES: LE; CALLED DR. CHA THAT RECEIVED NEW ORDER AND CARRIED OUT.
--- NOTE | 2020-07-19 22:06 | NUR ---
NURSE NOTES: DISCONTINUED FENTANYL AND VERSED DRIP ORDERED, WILL CONTINUE TO MONITOR. Addendum: 07/19/20 at 2253 alesha SCHWARZ RN NURSE NOTES: DISCONTINUED FENTANYL AND VERSED DRIP ORDERED AT 2106PM. PATIENT ASLEEP STATUS, VSS, WILL CONTINUE TO MONITOR.
[2020-07-19] MEDS: Norepinephrine 4mg/NS Premix 250 ML IV SCH (22:15)
[2020-07-19 23:15] LABS: APPEARANCE,URINE TURBID; BILIRUBIN, URINE NEGATIVE (NEGATIVE); COLOR,URINE BROWN; GLUCOSE, URINE (UA) NEGATIVE (NEGATIVE); KETONES,URINE 2+ (NEGATIVE); LEUKOCYTE ESTERASE ,URINE 3+ (NEGATIVE); NITRITE,URINE NEGATIVE (NEGATIVE); PH,URINE 5 (4.5-8.0); PROTEIN,URINE 3+ (NEGATIVE); UROBILINOGEN,URINE 1 MG/DL (0.0-1.0)
[2020-07-20] VITALS (25 sets, daily range): BP systolic 83–142; BP diastolic 50–98
--- NOTE | 2020-07-20 00:10 | NUR ---
NURSE NOTES: PATIENT OPEN EYES, FATIGUE STATUS, NO PAIN OR SOB NOTED, TOLERATED NGT FEEDING, WILL CONTINUE TO MONITOR.
--- NOTE | 2020-07-20 03:32 | NUR ---
NURSE NOTES: PATIENT TRIED TO TOUCH LINE AND NGT THAT APPLIED 2 POINT SOFT RESTRAINTS, WILL CONTINUE TO MONITOR.
[2020-07-20 04:20] LABS: BASOPHILS % (AUTO) 0.7 % (0.0-2.0); EOSINOPHILS % (AUTO) 6.7 % (0.0-3.0); HEMATOCRIT 27.5 % (37.0-47.0); HEMOGLOBIN 8.5 G/DL (12.0-16.0); LYMPHOCYTES % (AUTO) 19.6 % (20.0-45.0); MEAN CORPUSCULAR VOLUME 90 FL (80-99); MONOCYTES % (AUTO) 5.6 % (1.0-10.0); NEUTROPHILS % (AUTO) 67.3 % (45.0-75.0); PLATELET COUNT 327 K/UL (150-450); RED BLOOD COUNT 3.05 M/UL (4.20-5.40); RED CELL DISTRIBUTION WIDTH 17.1 % (11.6-14.8)
[2020-07-20 04:33] LABS: BLOOD UREA NITROGEN 18 mg/dL (7-18); CARBON DIOXIDE 37 MMOL/L (21-32); CHLORIDE 96 MMOL/L (98-107); CREATININE 0.6 MG/DL (0.55-1.30); POTASSIUM 3.4 MMOL/L (3.5-5.1); SODIUM 138 MMOL/L (136-145)
--- NOTE | 2020-07-20 04:50 | NUR ---
NURSE NOTES: MORNING CARE WAS DONE, PATIENT TRIED TO TOUCH IV LINE, SECURED RESTRAINTS, RECTAL TUBE INTACT, WILL CONTINUE TO MONITOR.
[2020-07-20] MEDS: Midodrine 10mg tab GT SCH ×3 (05:30→20:42)
--- NOTE | 2020-07-20 06:41 | NUR ---
NURSE NOTES: PATIENT OPEN EYES, DID NOT FOLLOW COMMANDS, NO ACUTE DISTRESS NOTED AT THIS SHIFT.
--- NOTE | 2020-07-20 07:09 | NUR ---
NURSE HAND-OFF REPORT: Latest Vital Signs: Temperature 99.8 , Pulse 104 , B/P 131 /84 , Respiratory Rate 31 , O2 SAT 99 , Mechanical Ventilator, O2 Flow Rate . Vital Sign Comment: EKG Rhythm: Sinus Tachycardia Rhythm change?: Jesus TOLLIVER Notified?: Jesus EDWARDS MD Response: Latest Meyers Fall Score: 70 Fall Risk: High Risk Safety Measures: Call light Within Reach, Bed Alarm Zone 1, Side Rails Side Rails x2, Bed position Low and Locked. Fall Precautions: Yellow Socks Door Sign Patient Fall Education Report given to Adebayo IRIZARRY RN.
--- NOTE | 2020-07-20 07:10 | NUR ---
NURSE NOTES: Report received from Travis Wilson RN.Pt asleep but easily awakens with touch and verbal stimuli, noted no resp distress,no c/o pain or discomfort, with trach tube to vent,ordered vent settings tolerated,NGT feeding jevity at 60ml/hr in placed per auscultation,no residual noted,Lennon cath draining yellow urinr with sediments,Rectal tube in placed,skin hot to touch,pt with low grade fever T99.2,IV site to RT Femoral line TLC intact with NS TKO,SR up x2 HOB elevated bed lock in lowest position,will continie with plans of care.
--- NOTE | 2020-07-20 09:11 | General Progress Note ---
Subjective Constitutional: Reports: weakness Allergies: Coded Allergies: No Known Allergies (Unverified , 05/28/20) All Systems: reviewed and negative except above Subjective trach vent ng in icu Objective Last 24 Hour Vital Signs Date Time Temp Pulse Resp B/P (MAP) Pulse Ox O2 Delivery O2 Flow Rate FiO2 07/20/20 08:00 106 31 123/90 (101) 97 07/20/20 08:00 50 07/20/20 08:00 Mechanical Ventilator Mechanical Ventilator 07/20/20 07:00 104 31 131/84 (100) 99 07/20/20 06:30 108 33 07/20/20 06:00 106 31 118/73 (88) 100 07/20/20 05:00 105 22 50 07/20/20 05:00 109 31 119/77 (91) 99 07/20/20 04:00 Mechanical Ventilator Mechanical Ventilator 07/20/20 04:00 111 07/20/20 04:00 50 07/20/20 04:00 99.8 111 28 120/98 (105) 100 07/20/20 03:34 110 32 50 07/20/20 03:00 122 35 106/67 (80) 100 07/20/20 02:00 105 25 94/51 (65) 99 07/20/20 01:36 102 24 50 07/20/20 01:00 102 23 88/56 (67) 99 07/20/20 00:00 Mechanical Ventilator Mechanical Ventilator 07/20/20 00:00 95 07/20/20 00:00 98.5 95 22 83/50 (61) 99 07/20/20 00:00 50 07/19/20 23:20 101 24 50 07/19/20 23:00 100 24 92/49 (63) 99 07/19/20 22:15 96/55 07/19/20 22:00 101 24 103/59 (74) 99 07/19/20 21:45 102 27 50 07/19/20 21:15 89 21 99/67 (78) 100 07/19/20 21:00 104 23 95/56 (69) 91 07/19/20 21:00 23 133/52 Mechanical Ventilator 50 07/19/20 21:00 23 133/52 Mechanical Ventilator 30 07/19/20 20:45 97 23 100/61 (74) 97 07/19/20 20:30 109 28 121/93 (102) 96 07/19/20 20:15 91 24 100/62 (75) 100 07/19/20 20:00 26 130/56 Mechanical Ventilator 50 07/19/20 20:00 26 130/56 Mechanical Ventilator 30 07/19/20 20:00 97.6 87 19 90/52 (65) 100 07/19/20 20:00 Mechanical Ventilator Mechanical Ventilator 07/19/20 19:53 90 20 50 07/19/20 19:45 107 22 102/63 (76) 89 07/19/20 19:34 24 97/61 Mechanical Ventilator 50 07/19/20 19:30 97 26 97/61 (73) 93 07/19/20 19:23 94 07/19/20 19:00 85 19 92/54 (67) 100 07/19/20 18:00 19 104/59 Mechanical Ventilator 50 07/19/20 18:00 100 22 104/59 (74) 100 07/19/20 17:00 28 104/61 Mechanical Ventilator 50 07/19/20 17:00 21 104/61 Mechanical Ventilator 50 07/19/20 17:00 108 28 104/61 (75) 90 07/19/20 16:00 84 19 93/61 (72) 100 07/19/20 16:00 Mechanical Ventilator Mechanical Ventilator 07/19/20 16:00 86 07/19/20 16:00 50 07/19/20 16:00 19 93/61 Mechanical Ventilator 50 07/19/20 16:00 19 93/61 Mechanical Ventilator 50 07/19/20 16:00 99.0 07/19/20 15:48 86 17 50 07/19/20 15:00 18 100/59 Mechanical Ventilator 50 07/19/20 15:00 18 100/59 Mechanical Ventilator 50 07/19/20 15:00 91 19 100/59 (73) 99 07/19/20 14:11 20 106/60 Mechanical Ventilator 50 07/19/20 14:00 103 25 110/66 (81) 100 07/19/20 14:00 21 103/60 Mechanical Ventilator 50 07/19/20 14:00 21 103/60 Mechanical Ventilator 50 07/19/20 13:00 25 110/66 Mechanical Ventilator 50 07/19/20 13:00 25 110/66 Mechanical Ventilator 50 07/19/20 13:00 103 25 110/66 (81) 100 07/19/20 12:11 22 110/65 Mechanical Ventilator 50 07/19/20 12:00 100 07/19/20 12:00 24 108/64 Mechanical Ventilator 50 07/19/20 12:00 24 108/64 Mechanical Ventilator 50 07/19/20 12:00 Mechanical Ventilator Mechanical Ventilator 07/19/20 12:00 50 07/19/20 12:00 99.2 106 24 108/64 (79) 98 07/19/20 11:15 24 103/60 Mechanical Ventilator 50 07/19/20 11:08 98 26 117/72 (87) 100 07/19/20 11:06 102 26 50 07/19/20 11:00 23 106/60 Mechanical Ventilator 50 07/19/20 11:00 24 103/64 Mechanical Ventilator 50 07/19/20 10:45 23 107/63 Mechanical Ventilator 50 07/19/20 10:00 98 22 104/62 (76) 100 07/19/20 10:00 24 102/67 Mechanical Ventilator 50 07/19/20 10:00 24 102/67 Mechanical Ventilator 50 07/19/20 09:45 22 110/65 Mechanical Ventilator 50 07/19/20 09:30 22 102/65 Mechanical Ventilator 50 07/19/20 09:15 27 98/61 Mechanical Ventilator 50 Intake and Output 07/19/20 07/20/20 19:00 07:00 Intake Total 1074 ml 1005 ml Output Total 1160 ml 450 ml Balance -86 ml 555 ml Free Water 100 ml IV Total 494 ml 135 ml Tube Feeding 360 ml 720 ml Other 120 ml 150 ml Output Urine Total 1160 ml 430 ml Stool Total 20 ml # Bowel Movements 3 Laboratory Tests 07/19/20 18:35: POC Whole Blood Glucose 110H 07/19/20 22:00: Urine Color Brown, Urine Appearance Turbid, Urine pH 5, Urine Specific [place] 1 .025, Urine Protein 3+H, Urine Glucose (UA) Negative, Urine Ketones 2+H, Urine Blood 5+H, Urine Nitrite Negative, Urine Bilirubin Negative, Urine Urobilinogen 1H, Urine Leukocyte Esterase 3+H, Urine RBC TntcH, Urine WBC TntcH, Urine Squa mous Epithelial Cells None, Urine Amorphous Sediment ModerateH, Urine Bacteria ManyH 07/20/20 03:30: White Blood Count 15.0H, Red Blood Count 3.05L, Hemoglobin 8.5L, Hematocrit 27.5L, Mean Corpuscular Volume 90, Mean Corpuscular Hemoglobin 28.0, Mean Corpuscular Hemoglobin Concent 30.9L, Red Cell Distribution Width 17.1H, Platelet Count 327, Mean Platelet Volume 7.6, Neutrophils (%) (Auto) 67.3, Lymphocytes (%) (Auto) 19.6L, Monocytes (%) (Auto) 5.6, Eosinophils (%) (Auto) 6.7H, Basophils (%) (Auto) 0.7, Sodium Level 138, Potassium Level 3.4L, Chloride Level 96L, Carbon Dioxide Level 37H, Blood Urea Nitrogen 18, Creatinine 0.6, Estimat Glomerular Filtration Rate > 60, Glucose Level 140H, Calcium Level 10.0 Height (Feet): 5 Height (Inches): 5.00 Weight (Pounds): 223 General Appearance: lethargic EENT: normal ENT inspection Neck: normal alignment Cardiovascular: normal peripheral pulses, normal rate, regular rhythm Respiratory/Chest: chest wall non-tender, lungs clear, normal breath sounds Abdomen: normal bowel sounds, non tender, soft Extremities: normal inspection Edema: no edema noted Arm (L), no edema noted Arm (R), no edema noted Leg (L), no edema noted Leg (R), no edema noted Pedal (L), no edema noted Pedal (R), no edema noted Generalized Neurologic: motor weakness Skin: normal pigmentation, warm/dry Assessment/Plan Problem List: (1) Hypoxia ICD Codes: R09.02 - Hypoxemia SNOMED: 108163832 (2) Respiratory failure ICD Codes: J96.90 - Respiratory failure, unspecified, unspecified whether with hypoxia or hypercapnia SNOMED: 833674907 (3) Respiratory distress ICD Codes: R06.03 - Acute respiratory distress; J12.82 - Pneumonia due to coronavirus disease 2019 SNOMED: 458124907 (4) Pneumonia due to COVID-19 virus ICD Codes: U07.1 - COVID-19; J12.82 - Pneumonia due to coronavirus disease 2019 SNOMED: 393737992563808605 Status: unchanged Assessment/Plan: vent abx id pulm f/u cbc bmp am Tank Del Cid DO Jul 20, 2020 09:11
--- NOTE | 2020-07-20 09:20 | Surgery Progress Note ---
Surgery Progress Note Subjective Procedure Performed right femoral central venous line insertion Additional Comments improved peg wednesday Objective Last 24 Hour Vital Signs Date Time Temp Pulse Resp B/P (MAP) Pulse Ox O2 Delivery O2 Flow Rate FiO2 07/20/20 08:00 106 31 123/90 (101) 97 07/20/20 08:00 50 07/20/20 08:00 Mechanical Ventilator Mechanical Ventilator 07/20/20 07:00 104 31 131/84 (100) 99 07/20/20 06:30 108 33 07/20/20 06:00 106 31 118/73 (88) 100 07/20/20 05:00 105 22 50 07/20/20 05:00 109 31 119/77 (91) 99 07/20/20 04:00 Mechanical Ventilator Mechanical Ventilator 07/20/20 04:00 111 07/20/20 04:00 50 07/20/20 04:00 99.8 111 28 120/98 (105) 100 07/20/20 03:34 110 32 50 07/20/20 03:00 122 35 106/67 (80) 100 07/20/20 02:00 105 25 94/51 (65) 99 07/20/20 01:36 102 24 50 07/20/20 01:00 102 23 88/56 (67) 99 07/20/20 00:00 Mechanical Ventilator Mechanical Ventilator 07/20/20 00:00 95 07/20/20 00:00 98.5 95 22 83/50 (61) 99 07/20/20 00:00 50 07/19/20 23:20 101 24 50 07/19/20 23:00 100 24 92/49 (63) 99 07/19/20 22:15 96/55 07/19/20 22:00 101 24 103/59 (74) 99 07/19/20 21:45 102 27 50 07/19/20 21:15 89 21 99/67 (78) 100 07/19/20 21:00 104 23 95/56 (69) 91 07/19/20 21:00 23 133/52 Mechanical Ventilator 50 07/19/20 21:00 23 133/52 Mechanical Ventilator 30 07/19/20 20:45 97 23 100/61 (74) 97 07/19/20 20:30 109 28 121/93 (102) 96 07/19/20 20:15 91 24 100/62 (75) 100 2/26/21 20:00 26 130/56 Mechanical Ventilator 50 07/19/20 20:00 26 130/56 Mechanical Ventilator 30 07/19/20 20:00 97.6 87 19 90/52 (65) 100 07/19/20 20:00 Mechanical Ventilator Mechanical Ventilator 07/19/20 19:53 90 20 50 07/19/20 19:45 107 22 102/63 (76) 89 07/19/20 19:34 24 97/61 Mechanical Ventilator 50 07/19/20 19:30 97 26 97/61 (73) 93 07/19/20 19:23 94 07/19/20 19:00 85 19 92/54 (67) 100 07/19/20 18:00 19 104/59 Mechanical Ventilator 50 07/19/20 18:00 100 22 104/59 (74) 100 07/19/20 17:00 28 104/61 Mechanical Ventilator 50 07/19/20 17:00 21 104/61 Mechanical Ventilator 50 07/19/20 17:00 108 28 104/61 (75) 90 07/19/20 16:00 84 19 93/61 (72) 100 07/19/20 16:00 Mechanical Ventilator Mechanical Ventilator 07/19/20 16:00 86 07/19/20 16:00 50 07/19/20 16:00 19 93/61 Mechanical Ventilator 50 07/19/20 16:00 19 93/61 Mechanical Ventilator 50 07/19/20 16:00 99.0 07/19/20 15:48 86 17 50 07/19/20 15:00 18 100/59 Mechanical Ventilator 50 07/19/20 15:00 18 100/59 Mechanical Ventilator 50 07/19/20 15:00 91 19 100/59 (73) 99 07/19/20 14:11 20 106/60 Mechanical Ventilator 50 07/19/20 14:00 103 25 110/66 (81) 100 07/19/20 14:00 21 103/60 Mechanical Ventilator 50 07/19/20 14:00 21 103/60 Mechanical Ventilator 50 07/19/20 13:00 25 110/66 Mechanical Ventilator 50 07/19/20 13:00 25 110/66 Mechanical Ventilator 50 07/19/20 13:00 103 25 110/66 (81) 100 07/19/20 12:11 22 110/65 Mechanical Ventilator 50 07/19/20 12:00 100 07/19/20 12:00 24 108/64 Mechanical Ventilator 50 07/19/20 12:00 24 108/64 Mechanical Ventilator 50 07/19/20 12:00 Mechanical Ventilator Mechanical Ventilator 07/19/20 12:00 50 07/19/20 12:00 99.2 106 24 108/64 (79) 98 07/19/20 11:15 24 103/60 Mechanical Ventilator 50 07/19/20 11:08 98 26 117/72 (87) 100 07/19/20 11:06 102 26 50 07/19/20 11:00 23 106/60 Mechanical Ventilator 50 07/19/20 11:00 24 103/64 Mechanical Ventilator 50 07/19/20 10:45 23 107/63 Mechanical Ventilator 50 07/19/20 10:00 98 22 104/62 (76) 100 07/19/20 10:00 24 102/67 Mechanical Ventilator 50 07/19/20 10:00 24 102/67 Mechanical Ventilator 50 07/19/20 09:45 22 110/65 Mechanical Ventilator 50 07/19/20 09:30 22 102/65 Mechanical Ventilator 50 I&O Intake and Output 07/19/20 07/20/20 19:00 07:00 Intake Total 1074 ml 1005 ml Output Total 1160 ml 450 ml Balance -86 ml 555 ml Free Water 100 ml IV Total 494 ml 135 ml Tube Feeding 360 ml 720 ml Other 120 ml 150 ml Output Urine Total 1160 ml 430 ml Stool Total 20 ml # Bowel Movements 3 Dressing: saturated Cardiovascular: RSR Respiratory: decreased breath sounds Abdomen: soft, non-tender, present bowel sounds, non-distended Extremities: no tenderness, no cyanosis Laboratory Tests Test 07/19/20 18:35 07/19/20 22:00 07/20/20 03:30 POC Whole Blood Glucose 110 MG/DL (74-106) H Urine Color Brown Urine Appearance Turbid Urine pH 5 (4.5-8.0) Urine Specific [place] 1.025 (1.005-1.035) Urine Protein 3+ (NEGATIVE) H Urine Glucose (UA) Negative (NEGATIVE) Urine Ketones 2+ (NEGATIVE) H Urine Blood 5+ (NEGATIVE) H Urine Nitrite Negative (NEGATIVE) Urine Bilirubin Negative (NEGATIVE) Urine Urobilinogen 1 MG/DL (0.0-1.0) H Urine Leukocyte Esterase 3+ (NEGATIVE) H Urine RBC Tntc /HPF (0 - 2) H Urine WBC Tntc /HPF (0 - 2) H Urine Squamous Epithelial Cells None /LPF (NONE/OCC) Urine Amorphous Sediment Moderate /LPF (NONE) H Urine Bacteria Many /HPF (NONE) H White Blood Count 15.0 K/UL (4.8-10.8) H Red Blood Count 3.05 M/UL (4.20-5.40) L Hemoglobin 8.5 G/DL (12.0-16.0) L Hematocrit 27.5 % (37.0-47.0) L Mean Corpuscular Volume 90 FL (80-99) Mean Corpuscular Hemoglobin 28.0 PG (27.0-31.0) Mean Corpuscular Hemoglobin Concent 30.9 G/DL (32.0-36.0) L Red Cell Distribution Width 17.1 % (11.6-14.8) H Platelet Count 327 K/UL (150-450) Mean Platelet Volume 7.6 FL (6.5-10.1) Neutrophils (%) (Auto) 67.3 % (45.0-75.0) Lymphocytes (%) (Auto) 19.6 % (20.0-45.0) L Monocytes (%) (Auto) 5.6 % (1.0-10.0) Eosinophils (%) (Auto) 6.7 % (0.0-3.0) H Basophils (%) (Auto) 0.7 % (0.0-2.0) Sodium Level 138 MMOL/L (136-145) Potassium Level 3.4 MMOL/L (3.5-5.1) L Chloride Level 96 MMOL/L (98-107) L Carbon Dioxide Level 37 MMOL/L (21-32) H Blood Urea Nitrogen 18 mg/dL (7-18) Creatinine 0.6 MG/DL (0.55-1.30) Estimat Glomerular Filtration Rate > 60 mL/min (>60) Glucose Level 140 MG/DL (74-106) H Calcium Level 10.0 MG/DL (8.5-10.1) Plan Problems: (1) Respiratory distress (2) Respiratory failure Assessment & Plan: 50-year-old female Covid positive respiratory insufficiency intubated on ventilatory support declining. Leukocytosis increase oxygen requirement. Vent settings per pulmonology reviewed identified and agree. Unfortunately further surgical invention at this time is not appropriate as patient is not a candidate and her current condition. Prognosis overall guarded. Tracheostomy can be considered in the future if recovering or shows improvement and requires unable to be weaned from ventilator support. Currently okay for nutritional optimization with NG tube. Will need significant monitoring for decubitus formation given patient's size and condition. Okay for air mattress tolerated. Turn every 2 hours as tolerated. Patient is otherwise critically ill and blood pressure labile. Will need to monitor closely.Bilateral infiltrates are again demonstrated. Stable tube and line positions. will need trach will need to wean vent first no cuff leak trach okay Improving weaning well DC planning placement much improved peg placement (3) Hypoxia (4) Pneumonia due to COVID-19 virus Assessment & Plan: ++ as per pulm and ID (5) Diabetes mellitus out of control Assessment & Plan: DAILY ESTIMATED NEEDS: Needs based on Critical care, obesity 11-14kcal/kg actual body wt (140kg) kcals/kg 6899-9406 total kcals 1.5-2.0g prot/kg IBW (64.5kg) g protein/kg 96-129 g total protein 25-30ml/kg abw (83kg) mL/kg 7846-1624 total fluid mLs NUTRITION DIAGNOSIS: Swallowing difficulty R/T respiratory failure as evidenced by pt orally intubated and sedated, on OGT feeds. CURRENT TF: Vital 1.2 goal of 60ml/hr ENTERAL NUTRITION RECOMMENDATIONS: Vital AF 1.2 @ 60ml/hr x 24 hrs to provide 1440ml, 1728kcal, 108g prot, 1168ml free water * Maintain current critical care and carb controlled TF formula of Vital AF * TF @ goal meeds 100% est kcal/prot needs * HOB over 30 degrees/ water flush per MD TF may be lowered to 55ml/hr for improved BG control while maintaining Kcal and pro needs. ADDITIONAL RECOMMENDATIONS: * Calibrated bedscale wt * Monitor Propofol rate, need for TF adjustment-> now off * Monitor BGs closely : now improved, on novolog q 6rs + NISS * Monitor lytes- K elevated, monitor need for TF change * Rec bowel regimen- now w/ rectal tube . Az Devine Jul 20, 2020 09:20
[2020-07-20] MEDS: Cefepime HCl 2 GM in D5W 55 ML IVPB SCH ×2 (09:23→20:42)
[2020-07-20] MEDS: Enoxaparin 120 mg inj SUBQ SCH ×2 (09:24→21:00)
[2020-07-20] MEDS: Vitamin D 1000 units Tab GT SCH (09:25)
--- NOTE | 2020-07-20 10:00 | NUR ---
NURSE NOTES: Dr Jimenes at bedside,ordered to insert PICC line and remove Rt Femoral line once its PICC line inserted.
--- NOTE | 2020-07-20 10:02 | Infectious Diseases Prog Note ---
Assessment/Plan Assessment/Plan A 1. COVID19 pneumonia 2. Hypoxic respiratory failure 3. Morbid obesity 4. DM type with hyperglycemia 5. Thrombocytopenia 6. leukocytosis resolved 7. Serratia pneumonia treated 8. Anemia 9. VDRF 10. postoperative fever resolved P 1. Finished remdesivir course 2. Finished steroid course 3. Waiting for GT placement 4. Continue Cefepime 5. PICC line placement & removal of femoral line Subjective ROS Limited/Unobtainable: Yes Gastrointestinal/Abdominal: Reports: vomiting Neurologic: Reports: other - on restraint Allergies: Coded Allergies: No Known Allergies (Unverified , 05/28/20) Objective Last 24 Hour Vital Signs Date Time Temp Pulse Resp B/P (MAP) Pulse Ox O2 Delivery O2 Flow Rate FiO2 07/20/20 09:00 110 24 127/91 (103) 97 07/20/20 08:00 107 07/20/20 08:00 106 31 123/90 (101) 97 07/20/20 08:00 50 07/20/20 08:00 Mechanical Ventilator Mechanical Ventilator 07/20/20 07:00 104 31 131/84 (100) 99 07/20/20 06:30 108 33 07/20/20 06:00 106 31 118/73 (88) 100 07/20/20 05:00 105 22 50 07/20/20 05:00 109 31 119/77 (91) 99 07/20/20 04:00 Mechanical Ventilator Mechanical Ventilator 07/20/20 04:00 111 07/20/20 04:00 50 07/20/20 04:00 99.8 111 28 120/98 (105) 100 07/20/20 03:34 110 32 50 07/20/20 03:00 122 35 106/67 (80) 100 07/20/20 02:00 105 25 94/51 (65) 99 07/20/20 01:36 102 24 50 07/20/20 01:00 102 23 88/56 (67) 99 07/20/20 00:00 Mechanical Ventilator Mechanical Ventilator 07/20/20 00:00 95 07/20/20 00:00 98.5 95 22 83/50 (61) 99 07/20/20 00:00 50 07/19/20 23:20 101 24 50 07/19/20 23:00 100 24 92/49 (63) 99 07/19/20 22:15 96/55 2/26/21 22:00 101 24 103/59 (74) 99 07/19/20 21:45 102 27 50 07/19/20 21:15 89 21 99/67 (78) 100 07/19/20 21:00 104 23 95/56 (69) 91 07/19/20 21:00 23 133/52 Mechanical Ventilator 50 07/19/20 21:00 23 133/52 Mechanical Ventilator 30 07/19/20 20:45 97 23 100/61 (74) 97 07/19/20 20:30 109 28 121/93 (102) 96 07/19/20 20:15 91 24 100/62 (75) 100 07/19/20 20:00 26 130/56 Mechanical Ventilator 50 07/19/20 20:00 26 130/56 Mechanical Ventilator 30 07/19/20 20:00 97.6 87 19 90/52 (65) 100 07/19/20 20:00 Mechanical Ventilator Mechanical Ventilator 07/19/20 19:53 90 20 50 07/19/20 19:45 107 22 102/63 (76) 89 07/19/20 19:34 24 97/61 Mechanical Ventilator 50 07/19/20 19:30 97 26 97/61 (73) 93 07/19/20 19:23 94 07/19/20 19:00 85 19 92/54 (67) 100 07/19/20 18:00 19 104/59 Mechanical Ventilator 50 07/19/20 18:00 100 22 104/59 (74) 100 07/19/20 17:00 28 104/61 Mechanical Ventilator 50 07/19/20 17:00 21 104/61 Mechanical Ventilator 50 07/19/20 17:00 108 28 104/61 (75) 90 07/19/20 16:00 84 19 93/61 (72) 100 07/19/20 16:00 Mechanical Ventilator Mechanical Ventilator 07/19/20 16:00 86 07/19/20 16:00 50 07/19/20 16:00 19 93/61 Mechanical Ventilator 50 07/19/20 16:00 19 93/61 Mechanical Ventilator 50 07/19/20 16:00 99.0 07/19/20 15:48 86 17 50 07/19/20 15:00 18 100/59 Mechanical Ventilator 50 07/19/20 15:00 18 100/59 Mechanical Ventilator 50 07/19/20 15:00 91 19 100/59 (73) 99 07/19/20 14:11 20 106/60 Mechanical Ventilator 50 07/19/20 14:00 103 25 110/66 (81) 100 07/19/20 14:00 21 103/60 Mechanical Ventilator 50 07/19/20 14:00 21 103/60 Mechanical Ventilator 50 07/19/20 13:00 25 110/66 Mechanical Ventilator 50 07/19/20 13:00 25 110/66 Mechanical Ventilator 50 07/19/20 13:00 103 25 110/66 (81) 100 07/19/20 12:11 22 110/65 Mechanical Ventilator 50 07/19/20 12:00 100 07/19/20 12:00 24 108/64 Mechanical Ventilator 50 07/19/20 12:00 24 108/64 Mechanical Ventilator 50 07/19/20 12:00 Mechanical Ventilator Mechanical Ventilator 07/19/20 12:00 50 07/19/20 12:00 99.2 106 24 108/64 (79) 98 07/19/20 11:15 24 103/60 Mechanical Ventilator 50 07/19/20 11:08 98 26 117/72 (87) 100 07/19/20 11:06 102 26 50 07/19/20 11:00 23 106/60 Mechanical Ventilator 50 07/19/20 11:00 24 103/64 Mechanical Ventilator 50 07/19/20 10:45 23 107/63 Mechanical Ventilator 50 07/19/20 10:00 98 22 104/62 (76) 100 07/19/20 10:00 24 102/67 Mechanical Ventilator 50 07/19/20 10:00 24 102/67 Mechanical Ventilator 50 Height (Feet): 5 Height (Inches): 5.00 Weight (Pounds): 223 HEENT: mucous membranes moist, status post trach Respiratory/Chest: lungs clear, other - on ventilator Cardiovascular: tachycardia, other - right femoral line Abdomen: soft, non tender, other - NG tube Extremities: other - hands edema Neurologic/Psychiatric: alert, responsive Laboratory Tests Test 07/19/20 18:35 07/19/20 22:00 07/20/20 03:30 POC Whole Blood Glucose 110 MG/DL (74-106) H Urine Color Brown Urine Appearance Turbid Urine pH 5 (4.5-8.0) Urine Specific [place] 1.025 (1.005-1.035) Urine Protein 3+ (NEGATIVE) H Urine Glucose (UA) Negative (NEGATIVE) Urine Ketones 2+ (NEGATIVE) H Urine Blood 5+ (NEGATIVE) H Urine Nitrite Negative (NEGATIVE) Urine Bilirubin Negative (NEGATIVE) Urine Urobilinogen 1 MG/DL (0.0-1.0) H Urine Leukocyte Esterase 3+ (NEGATIVE) H Urine RBC Tntc /HPF (0 - 2) H Urine WBC Tntc /HPF (0 - 2) H Urine Squamous Epithelial Cells None /LPF (NONE/OCC) Urine Amorphous Sediment Moderate /LPF (NONE) H Urine Bacteria Many /HPF (NONE) H White Blood Count 15.0 K/UL (4.8-10.8) H Red Blood Count 3.05 M/UL (4.20-5.40) L Hemoglobin 8.5 G/DL (12.0-16.0) L Hematocrit 27.5 % (37.0-47.0) L Mean Corpuscular Volume 90 FL (80-99) Mean Corpuscular Hemoglobin 28.0 PG (27.0-31.0) Mean Corpuscular Hemoglobin Concent 30.9 G/DL (32.0-36.0) L Red Cell Distribution Width 17.1 % (11.6-14.8) H Platelet Count 327 K/UL (150-450) Mean Platelet Volume 7.6 FL (6.5-10.1) Neutrophils (%) (Auto) 67.3 % (45.0-75.0) Lymphocytes (%) (Auto) 19.6 % (20.0-45.0) L Monocytes (%) (Auto) 5.6 % (1.0-10.0) Eosinophils (%) (Auto) 6.7 % (0.0-3.0) H Basophils (%) (Auto) 0.7 % (0.0-2.0) Sodium Level 138 MMOL/L (136-145) Potassium Level 3.4 MMOL/L (3.5-5.1) L Chloride Level 96 MMOL/L (98-107) L Carbon Dioxide Level 37 MMOL/L (21-32) H Blood Urea Nitrogen 18 mg/dL (7-18) Creatinine 0.6 MG/DL (0.55-1.30) Estimat Glomerular Filtration Rate > 60 mL/min (>60) Glucose Level 140 MG/DL (74-106) H Calcium Level 10.0 MG/DL (8.5-10.1) Current Medications Medications (Trade) Dose Ordered Sig/Zelda Route PRN Reason Start Time Stop Time Status Last Admin Dose Admin Acetaminophen (Tylenol) 650 mg Q4H PRN NG Temp >100.5 06/29/20 10:15 07/29/20 10:14 07/19/20 07:59 Acetaminophen (Tylenol) 650 mg Q6H PRN NG Mild Pain (Pain Scale 1-3) 06/29/20 10:15 07/29/20 10:14 Cefepime HCl 2 gm/ Dextrose 55 ml @ 110 mls/hr EVERY 12 HOURS IVPB 07/19/20 11:30 07/26/20 11:29 07/20/20 09:23 Chlorhexidine Gluconate (Inna-Hex 2%) 1 applic DAILY@2000 TOPIC 05/30/20 20:00 08/28/20 19:59 07/19/20 19:41 Dextrose (Dextrose 50%) 25 ml Q30M PRN IV Hypoglycemia 06/05/20 10:45 09/03/20 10:44 Dextrose (Dextrose 50%) 50 ml Q30M PRN IV Hypoglycemia 06/05/20 10:45 09/03/20 10:44 Enoxaparin Sodium (Lovenox) 110 mg EVERY 12 HOURS SUBQ 07/17/20 21:00 10/15/20 20:59 07/20/20 09:24 Furosemide (Lasix) 40 mg DAILY IV 06/22/20 09:00 07/22/20 08:59 07/20/20 09:26 Guaifenesin/ Codeine Phosphate (Robitussin with codeine) 5 ml Q6H PRN NG For Cough 07/14/20 14:15 08/13/20 14:14 07/18/20 21:44 Lansoprazole (Prevacid) 30 mg DAILY GT 07/18/20 09:00 08/09/20 08:59 07/20/20 09:25 Midodrine (Pro-Amatine) 10 mg Q8HR GT 06/30/20 14:00 09/12/20 13:59 07/20/20 05:30 Norepinephrine Bitartrate 250 ml @ 7.5 mls/hr Q24H IV 07/17/20 22:15 07/20/20 22:05 07/17/20 22:15 Potassium Chloride (K-Dur) 40 meq TWICE A DAY GT 07/17/20 12:15 10/15/20 12:14 07/20/20 09:25 Quetiapine Fumarate (SEROqueL) 50 mg Q12HR GT 07/16/20 13:30 08/30/20 13:29 07/20/20 09:24 Vitamin D (Vitamin D) 5,000 unit DAILY GT 06/28/20 09:00 07/28/20 08:59 07/20/20 09:25 Colt Arana MD Jul 20, 2020 10:02
[2020-07-20] MEDS ORDERED: Lidocaine 1% Plain 30 ml INJ PRN (10:15)
[2020-07-20] MEDS ORDERED: Heparin1,000 units/500ml Premix(Conc:2 units/ml) IV PRN (10:15)
--- NOTE | 2020-07-20 10:30 | NUR ---
NURSE NOTES: Pt vomited to Large amount of liquid emesis light brown in color,will notify Dr Turcios.
--- NOTE | 2020-07-20 11:11 | Pulmonology Progress Note ---
Subjective ROS Limited/Unobtainable: Yes Interval Events: S/p tracheostomy Constitutional: Reports: fever, other - resolved HEENT: Repors: no symptoms Respiratory: Reports: no symptoms Cardiovascular: Reports: no symptoms Gastrointestinal/Abdominal: Reports: vomiting Genitourinary: Reports: no symptoms Allergies: Coded Allergies: No Known Allergies (Unverified , 05/28/20) All Systems: reviewed and negative except above Objective Last 24 Hour Vital Signs Date Time Temp Pulse Resp B/P (MAP) Pulse Ox O2 Delivery O2 Flow Rate FiO2 07/20/20 09:00 110 24 127/91 (103) 97 07/20/20 08:00 107 07/20/20 08:00 106 31 123/90 (101) 97 07/20/20 08:00 50 07/20/20 08:00 Mechanical Ventilator Mechanical Ventilator 07/20/20 07:00 104 31 131/84 (100) 99 07/20/20 06:30 108 33 07/20/20 06:00 106 31 118/73 (88) 100 07/20/20 05:00 105 22 50 07/20/20 05:00 109 31 119/77 (91) 99 07/20/20 04:00 Mechanical Ventilator Mechanical Ventilator 07/20/20 04:00 111 07/20/20 04:00 50 07/20/20 04:00 99.8 111 28 120/98 (105) 100 07/20/20 03:34 110 32 50 07/20/20 03:00 122 35 106/67 (80) 100 07/20/20 02:00 105 25 94/51 (65) 99 07/20/20 01:36 102 24 50 07/20/20 01:00 102 23 88/56 (67) 99 07/20/20 00:00 Mechanical Ventilator Mechanical Ventilator 07/20/20 00:00 95 07/20/20 00:00 98.5 95 22 83/50 (61) 99 07/20/20 00:00 50 07/19/20 23:20 101 24 50 07/19/20 23:00 100 24 92/49 (63) 99 07/19/20 22:15 96/55 07/19/20 22:00 101 24 103/59 (74) 99 07/19/20 21:45 102 27 50 07/19/20 21:15 89 21 99/67 (78) 100 07/19/20 21:00 104 23 95/56 (69) 91 07/19/20 21:00 23 133/52 Mechanical Ventilator 50 07/19/20 21:00 23 133/52 Mechanical Ventilator 30 07/19/20 20:45 97 23 100/61 (74) 97 07/19/20 20:30 109 28 121/93 (102) 96 07/19/20 20:15 91 24 100/62 (75) 100 07/19/20 20:00 26 130/56 Mechanical Ventilator 50 07/19/20 20:00 26 130/56 Mechanical Ventilator 30 07/19/20 20:00 97.6 87 19 90/52 (65) 100 07/19/20 20:00 Mechanical Ventilator Mechanical Ventilator 07/19/20 19:53 90 20 50 07/19/20 19:45 107 22 102/63 (76) 89 07/19/20 19:34 24 97/61 Mechanical Ventilator 50 07/19/20 19:30 97 26 97/61 (73) 93 07/19/20 19:23 94 07/19/20 19:00 85 19 92/54 (67) 100 07/19/20 18:00 19 104/59 Mechanical Ventilator 50 07/19/20 18:00 100 22 104/59 (74) 100 07/19/20 17:00 28 104/61 Mechanical Ventilator 50 07/19/20 17:00 21 104/61 Mechanical Ventilator 50 07/19/20 17:00 108 28 104/61 (75) 90 07/19/20 16:00 84 19 93/61 (72) 100 07/19/20 16:00 Mechanical Ventilator Mechanical Ventilator 07/19/20 16:00 86 07/19/20 16:00 50 07/19/20 16:00 19 93/61 Mechanical Ventilator 50 07/19/20 16:00 19 93/61 Mechanical Ventilator 50 07/19/20 16:00 99.0 07/19/20 15:48 86 17 50 07/19/20 15:00 18 100/59 Mechanical Ventilator 50 07/19/20 15:00 18 100/59 Mechanical Ventilator 50 07/19/20 15:00 91 19 100/59 (73) 99 07/19/20 14:11 20 106/60 Mechanical Ventilator 50 2/26/21 14:00 103 25 110/66 (81) 100 07/19/20 14:00 21 103/60 Mechanical Ventilator 50 07/19/20 14:00 21 103/60 Mechanical Ventilator 50 07/19/20 13:00 25 110/66 Mechanical Ventilator 50 07/19/20 13:00 25 110/66 Mechanical Ventilator 50 07/19/20 13:00 103 25 110/66 (81) 100 07/19/20 12:11 22 110/65 Mechanical Ventilator 50 07/19/20 12:00 100 07/19/20 12:00 24 108/64 Mechanical Ventilator 50 07/19/20 12:00 24 108/64 Mechanical Ventilator 50 07/19/20 12:00 Mechanical Ventilator Mechanical Ventilator 07/19/20 12:00 50 07/19/20 12:00 99.2 106 24 108/64 (79) 98 07/19/20 11:15 24 103/60 Mechanical Ventilator 50 Intake and Output 07/19/20 07/20/20 19:00 07:00 Intake Total 1074 ml 1005 ml Output Total 1160 ml 450 ml Balance -86 ml 555 ml Free Water 100 ml IV Total 494 ml 135 ml Tube Feeding 360 ml 720 ml Other 120 ml 150 ml Output Urine Total 1160 ml 430 ml Stool Total 20 ml # Bowel Movements 3 General Appearance: no acute distress HEENT: normocephalic, status post trach Respiratory: chest wall non-tender Cardiovascular: normal peripheral pulses Abdomen: normal bowel sounds Laboratory Tests 07/19/20 18:35: POC Whole Blood Glucose 110H 07/19/20 22:00: Urine Color Brown, Urine Appearance Turbid, Urine pH 5, Urine Specific [place] 1.025, Urine Protein 3+H, Urine Glucose (UA) Negative, Urine Ketones 2+H, Urine Blood 5+H, Urine Nitrite Negative, Urine Bilirubin Negative, Urine Urobilinogen 1H, Urine Leukocyte Esterase 3+H, Urine RBC TntcH, Urine WBC TntcH, Urine Squamous Epithelial Cells None, Urine Amorphous Sediment ModerateH, Urine Bacteria ManyH 07/20/20 03:30: White Blood Count 15.0H, Red Blood Count 3.05L, Hemoglobin 8.5L, Hematocrit 27.5L, Mean Corpuscular Volume 90, Mean Corpuscular Hemoglobin 28.0, Mean Corpuscular Hemoglobin Concent 30.9L, Red Cell Distribution Width 17.1H, Platelet Count 327, Mean Platelet Volume 7.6, Neutrophils (%) (Auto) 67.3, Lymphocytes (%) (Auto) 19.6L, Monocytes (%) (Auto) 5.6, Eosinophils (%) (Auto) 6.7H, Basophils (%) (Auto) 0.7, Sodium Level 138, Potassium Level 3.4L, Chloride Level 96L, Carbon Dioxide Level 37H, Blood Urea Nitrogen 18, Creatinine 0.6, Estimat Glomerular Filtration Rate > 60, Glucose Level 140H, Calcium Level 10.0 Current Medications Medications (Trade) Dose Ordered Sig/Zelda Route PRN Reason Start Time Stop Time Status Last Admin Dose Admin Acetaminophen (Tylenol) 650 mg Q4H PRN NG Temp >100.5 06/29/20 10:15 07/29/20 10:14 07/19/20 07:59 Acetaminophen (Tylenol) 650 mg Q6H PRN NG Mild Pain (Pain Scale 1-3) 06/29/20 10:15 07/29/20 10:14 Cefepime HCl 2 gm/ Dextrose 55 ml @ 110 mls/hr EVERY 12 HOURS IVPB 07/19/20 11:30 07/26/20 11:29 07/20/20 09:23 Chlorhexidine Gluconate (Inna-Hex 2%) 1 applic DAILY@1999 TOPIC 05/30/20 20:00 08/28/20 19:59 07/19/20 19:41 Chlorhexidine Gluconate (Inna-Hex 2%) 1 applic DAILY@1999 TOPIC 07/20/20 20:00 10/18/20 19:59 Dextrose (Dextrose 50%) 25 ml Q30M PRN IV Hypoglycemia 06/05/20 10:45 09/03/20 10:44 Dextrose (Dextrose 50%) 50 ml Q30M PRN IV Hypoglycemia 06/05/20 10:45 09/03/20 10:44 Enoxaparin Sodium (Lovenox) 110 mg EVERY 12 HOURS SUBQ 07/17/20 21:00 10/15/20 20:59 07/20/20 09:24 Furosemide (Lasix) 40 mg DAILY IV 06/22/20 09:00 07/22/20 08:59 07/20/20 09:26 Guaifenesin/ Codeine Phosphate (Robitussin with codeine) 5 ml Q6H PRN NG For Cough 07/14/20 14:15 08/13/20 14:14 07/18/20 21:44 Heparin Sodium/ Sodium Chloride (Heparin 1000 units/500ml Premix) 1,000 unit ONCE PRN IV PICC LINE 07/20/20 10:15 07/22/20 10:14 Lansoprazole (Prevacid) 30 mg DAILY GT 07/18/20 09:00 08/09/20 08:59 07/20/20 09:25 Lidocaine HCl (Xylocaine 1% 30ml) 30 ml ONCE PRN INJ PICC LINE 07/20/20 10:15 07/22/20 10:14 Midodrine (Pro-Amatine) 10 mg Q8HR GT 06/30/20 14:00 09/12/20 13:59 07/20/20 05:30 Norepinephrine Bitartrate 250 ml @ 7.5 mls/hr Q24H IV 07/17/20 22:15 07/20/20 22:05 07/17/20 22:15 Potassium Chloride (K-Dur) 40 meq TWICE A DAY GT 07/17/20 12:15 10/15/20 12:14 07/20/20 09:25 Quetiapine Fumarate (SEROqueL) 50 mg Q12HR GT 07/16/20 13:30 08/30/20 13:29 07/20/20 09:24 Vitamin D (Vitamin D) 5,000 unit DAILY GT 06/28/20 09:00 07/28/20 08:59 07/20/20 09:25 Assessment/Plan Assessment/Plan 1. COVID-19 pneumonia -Intubated 05/28/20 - We will continue broad-spectrum antibiotics. -s/p solumedrol, Rocephin -Continue PEEP 6 ->7 - Peak airway pressures high; 38 - FiO2 100% -> 90 ->80->60 ->40 ->80 ->100 ->70 ->60 -> 50 ->45 - >40%; PEEP 7 ->5 -will continue OGT feeding 2. Hyponatremia -Per primary MD 3. Elevated inflammatory markers - has high D dimer; On Lovenox 4. Decreased PEEP S/p trach Reported cuff leak per Rn/RT Discussed trach change with surgery Hold off for now... however noted loss of volumes on vent and high FiO2 requirements Off IV fluids Begin dc planning to subacute; will need to wean down O2 further prior to transfer On low dose Levophed; will attempt to wean off Will wean off IV sedation; started Seroquel Needs PEG; planned for Wednesday July 22, 2020 Javier Nava MD Jul 20, 2020 11:11
[2020-07-20] MEDS ORDERED: Lidocaine 1% Plain 30 ml INJ ONE (12:30)
[2020-07-20] MEDS ORDERED: Heparin1,000 units/500ml Premix(Conc:2 units/ml) IV ONE (12:30)
--- NOTE | 2020-07-20 12:30 | NUR ---
NURSE NOTES: Dr Billingsley at bedside,informed re pt's vomiting episode,ordered to hold feeding and ordered for KUB Xray and infused IVF D5 1/2 NS at 75 ml/hr,order done and carried out.
[2020-07-20] MEDS: D5 1/2NS 1,000 ML IV SCH (13:31)
--- NOTE | 2020-07-20 13:35 | Nephrology Progress Note ---
Assessment/Plan Problem List: (1) DEVENDRA (acute kidney injury) (2) Morbid obesity (3) Diabetes mellitus out of control (4) Pneumonia due to COVID-19 virus (5) Respiratory failure Assessment Acute renal failure Obstructive uropathy, clogged [place] Respiratory failure COVID-19 pneumonia Morbid obesity Plan July 20: Status quo. PEG procedure deferred to July 22. Patient remains full code. Abnormal electrolytes addressed. FiO2 50% unchanged. Continue per consultants. July 19: Status quo. Due for PEG insertion today. Remains full code. Trach and vent. Low magnesium addressed. Continue per consultants. FiO2 50%. July 18: Status quo. Labs reviewed. Low potassium addressed. Continue per consultants. Remains full code. July 17: Remains full code. Trach to vent. FiO2 40%. Labs reviewed. Low potassium addressed. Continue per consultants. July 16: Status quo. FiO2 45%. Discussed with RN. Continue to taper her mind altering medications and sedatives. Stable from renal standpoint of view. Abnormal electrolytes addressed. July 15: Full code. FiO2 50%. Intubated on ventilator. No labs drawn today. Continue per consultants. July 14: Status quo. FiO2 50%. Labs reviewed. Renal parameters stable. Continue per current treatment plan and consultants. Medication list reviewed. July 13: FiO2 60% unchanged. Labs reviewed. Renal parameters stable. Medication list reviewed. Continue per consultants. July 12: Full code. Labs reviewed. Normal electrolytes addressed. Continue per pulmonary. Medication list reviewed. July 11: Remains full code. On ventilator. FiO2 down to 65%. Renal parameters stable. Low magnesium addressed. Continue her current management. July 10: Full code. On ventilator. FiO2 70%. Hemoglobin mid sevens. Renal parameters stable. Continue per consultants. July 09: Labs reviewed. Renal parameters stable. FiO2 80% unchanged. Continue per pulmonary. July 08: Labs reviewed. Renal parameters and electrolytes stable. ABG suggestive of high PCO2. At this time patient is on FiO2 of 80%. Continue per pulmonary. Continue to monitor renal parameters. July 07: No CHEM panel drawn today. More potassium given. Continue to monitor renal parameters. Continue per consultants. Discussed with RAKEL Veras. July 06: Low potassium addressed. Albumin bolus for low BP given. Patient remains full code. Continue to monitor electrolytes and renal parameters. Continue per consultants. Hemoglobin low today, transfusion per diesel electrician. July 05: Trach to vent. FiO2 80%. Renal parameters stable. PCO2 remains high at 44. Continue to monitor renal parameters. July 04: Patient now trach. Full code. Labs reviewed. Renal parameters stable. Low magnesium addressed. July 03: Intubated. Full code. Labs reviewed. Abnormal electrolytes addressed. Continue per consultants. Overall status unchanged. July 02: Remains intubated. Remains full code. Remains on FiO2 of 70%. Labs reviewed. Abnormal electrolytes addressed. Continue per pulmonary. July 01: Remains on 70% FiO2. Full code. Intubated on ventilator. Retaining CO2. Discussed with RN. Will do ABG today. Albumin bolus given. 1 dose of Diamox given. June 30: Status quo. Labs reviewed. Abnormal electrolytes addressed. Remains full code. Remains on ventilator. Magnesium sulfate 4 gram IVPB given. June 29: Full code. Intubated on ventilator. Labs reviewed. Stable from renal standpoint of view. Continue per consultants. June 28: Remains full code. Remains intubated on ventilator. Labs reviewed. Vitamin D supplement ordered. Continue to monitor renal parameters. Continue per consultants. June 27: Remains full code. Intubated on ventilator. Labs reviewed. Abnormal electrolyte addressed. Continue to monitor renal parameters and electrolytes. Continue per consultants. June 26: Labs reviewed. Remains full code. Remains intubated. Back on NGT feeding. Continue to monitor renal parameters. June 25: Labs reviewed. Renal parameters stable. Remains full code. Due to positional status patient could not be fed via NG tube. Starting TPN? Is being entertained. Continue per consultants. June 24: Labs reviewed. Renal parameters stable. Remains full code. Remains intubated on ventilator. Continue per consultants. June 23: Labs reviewed. Renal parameters stable. Discussed with RN. Abnormal electrolyte addressed. Remains full code. Remains on ventilator. Continue per consultants. June 22: Labs reviewed. Low potassium addressed. Discussed with RAKEL Moran. Patient full code. Remains on ventilator. Continue to monitor renal parameters. June 21. Labs reviewed. Abnormal electrolyte addressed. Full code. Remains on ventilator. Medication list reviewed. Continue per pulmonary management. DC IV fluid, resume Lasix daily, check chest x-ray. June 20: Labs reviewed. Abnormal electrolytes. Patient remains full code. Continue per consultants. Noted and addressed June 19: Labs reviewed. Abnormal electrolytes noted and addressed. Remains intubated on ventilator. Remains full code. June 18: Labs reviewed. Remains intubated on ventilator. Full code. Abnormal electrolyte addressed. Continue as is. June 17: Labs reviewed. Abnormal electrolytes addressed. Patient remains full code and intubated on ventilator. Continue per consultants. Renal parameters are within normal limits. June 16: Labs reviewed. Potassium chloride replaced. Remains full code. Remains intubated on ventilator. Continue per consultants. Continue to monitor renal parameters. June 15: Labs reviewed. Serum creatinine 1. Stable from renal standpoint to view. Continue per consultants. June 14: Labs reviewed. Full code. Serum creatinine of 3.5 down to 1.4. Low potassium addressed. Continue per current treatment plan. Continue to monitor renal parameters. Midodrine started. Albumin bolus given. Previously: DC Lasix drip Increase Protonix dose Monitor renal parameters, electrolytes Per orders Subjective ROS Limited/Unobtainable: Yes Objective Objective Last 24 Hour Vital Signs Date Time Temp Pulse Resp B/P (MAP) Pulse Ox O2 Delivery O2 Flow Rate FiO2 07/20/20 12:04 99.0 99 27 137/88 (104) 98 07/20/20 12:04 Mechanical Ventilator Mechanical Ventilator 07/20/20 12:03 50 07/20/20 11:00 105 29 142/90 (107) 98 07/20/20 10:00 118 23 127/59 (81) 98 07/20/20 09:00 110 24 127/91 (103) 97 07/20/20 08:00 107 07/20/20 08:00 106 31 123/90 (101) 97 07/20/20 08:00 99.0 07/20/20 08:00 50 07/20/20 08:00 Mechanical Ventilator Mechanical Ventilator 07/20/20 07:00 104 31 131/84 (100) 99 07/20/20 06:30 108 33 07/20/20 06:00 106 31 118/73 (88) 100 07/20/20 05:00 105 22 50 07/20/20 05:00 109 31 119/77 (91) 99 07/20/20 04:00 Mechanical Ventilator Mechanical Ventilator 07/20/20 04:00 111 07/20/20 04:00 50 07/20/20 04:00 99.8 111 28 120/98 (105) 100 07/20/20 03:34 110 32 50 07/20/20 03:00 122 35 106/67 (80) 100 07/20/20 02:00 105 25 94/51 (65) 99 07/20/20 01:36 102 24 50 07/20/20 01:00 102 23 88/56 (67) 99 07/20/20 00:00 Mechanical Ventilator Mechanical Ventilator 07/20/20 00:00 95 07/20/20 00:00 98.5 95 22 83/50 (61) 99 07/20/20 00:00 50 07/19/20 23:20 101 24 50 07/19/20 23:00 100 24 92/49 (63) 99 07/19/20 22:15 96/55 07/19/20 22:00 101 24 103/59 (74) 99 07/19/20 21:45 102 27 50 07/19/20 21:15 89 21 99/67 (78) 100 07/19/20 21:00 104 23 95/56 (69) 91 07/19/20 21:00 23 133/52 Mechanical Ventilator 50 07/19/20 21:00 23 133/52 Mechanical Ventilator 30 07/19/20 20:45 97 23 100/61 (74) 97 07/19/20 20:30 109 28 121/93 (102) 96 07/19/20 20:15 91 24 100/62 (75) 100 07/19/20 20:00 26 130/56 Mechanical Ventilator 50 07/19/20 20:00 26 130/56 Mechanical Ventilator 30 07/19/20 20:00 97.6 87 19 90/52 (65) 100 07/19/20 20:00 Mechanical Ventilator Mechanical Ventilator 07/19/20 19:53 90 20 50 07/19/20 19:45 107 22 102/63 (76) 89 07/19/20 19:34 24 97/61 Mechanical Ventilator 50 07/19/20 19:30 97 26 97/61 (73) 93 07/19/20 19:23 94 07/19/20 19:00 85 19 92/54 (67) 100 07/19/20 18:00 19 104/59 Mechanical Ventilator 50 07/19/20 18:00 100 22 104/59 (74) 100 07/19/20 17:00 28 104/61 Mechanical Ventilator 50 07/19/20 17:00 21 104/61 Mechanical Ventilator 50 07/19/20 17:00 108 28 104/61 (75) 90 07/19/20 16:00 84 19 93/61 (72) 100 07/19/20 16:00 Mechanical Ventilator Mechanical Ventilator 07/19/20 16:00 86 07/19/20 16:00 50 07/19/20 16:00 19 93/61 Mechanical Ventilator 50 07/19/20 16:00 19 93/61 Mechanical Ventilator 50 07/19/20 16:00 99.0 07/19/20 15:48 86 17 50 07/19/20 15:00 18 100/59 Mechanical Ventilator 50 07/19/20 15:00 18 100/59 Mechanical Ventilator 50 07/19/20 15:00 91 19 100/59 (73) 99 07/19/20 14:11 20 106/60 Mechanical Ventilator 50 07/19/20 14:00 103 25 110/66 (81) 100 07/19/20 14:00 21 103/60 Mechanical Ventilator 50 07/19/20 14:00 21 103/60 Mechanical Ventilator 50 Intake and Output 07/19/20 07/20/20 19:00 07:00 Intake Total 1074 ml 1005 ml Output Total 1160 ml 450 ml Balance -86 ml 555 ml Free Water 100 ml IV Total 494 ml 135 ml Tube Feeding 360 ml 720 ml Other 120 ml 150 ml Output Urine Total 1160 ml 430 ml Stool Total 20 ml # Bowel Movements 3 Current Medications Medications (Trade) Dose Ordered Sig/Zelda Route PRN Reason Start Time Stop Time Status Last Admin Dose Admin Acetaminophen (Tylenol) 650 mg Q4H PRN NG Temp >100.5 06/29/20 10:15 07/29/20 10:14 07/19/20 07:59 Acetaminophen (Tylenol) 650 mg Q6H PRN NG Mild Pain (Pain Scale 1-3) 06/29/20 10:15 07/29/20 10:14 Cefepime HCl 2 gm/ Dextrose 55 ml @ 110 mls/hr EVERY 12 HOURS IVPB 07/19/20 11:30 07/26/20 11:29 07/20/20 09:23 Chlorhexidine Gluconate (Inna-Hex 2%) 1 applic DAILY@2000 TOPIC 07/20/20 20:00 10/18/20 19:59 Dextrose (Dextrose 50%) 25 ml Q30M PRN IV Hypoglycemia 06/05/20 10:45 09/03/20 10:44 Dextrose (Dextrose 50%) 50 ml Q30M PRN IV Hypoglycemia 06/05/20 10:45 09/03/20 10:44 Dextrose/Sodium Chloride 1,000 ml @ 75 mls/hr Q56H08N IV 07/20/20 12:30 08/19/20 12:29 07/20/20 13:31 Enoxaparin Sodium (Lovenox) 110 mg EVERY 12 HOURS SUBQ 07/17/20 21:00 10/15/20 20:59 07/20/20 09:24 Furosemide (Lasix) 40 mg DAILY IV 06/22/20 09:00 07/22/20 08:59 07/20/20 09:26 Guaifenesin/ Codeine Phosphate (Robitussin with codeine) 5 ml Q6H PRN NG For Cough 07/14/20 14:15 08/13/20 14:14 07/18/20 21:44 Heparin Sodium/ Sodium Chloride (Heparin 1000 units/500ml Premix) 1,000 unit ONCE PRN IV PICC LINE 07/20/20 10:15 07/22/20 10:14 Lansoprazole (Prevacid) 30 mg DAILY GT 07/18/20 09:00 08/09/20 08:59 07/20/20 09:25 Lidocaine HCl (Xylocaine 1% 30ml) 30 ml ONCE PRN INJ PICC LINE 07/20/20 10:15 07/22/20 10:14 Midodrine (Pro-Amatine) 10 mg Q8HR GT 06/30/20 14:00 09/12/20 13:59 07/20/20 13:30 Norepinephrine Bitartrate 250 ml @ 7.5 mls/hr Q24H IV 07/17/20 22:15 07/20/20 22:05 07/17/20 22:15 Potassium Chloride 100 ml @ 50 mls/hr ONCE IVPB 07/20/20 13:00 07/20/20 16:00 07/20/20 12:37 Potassium Chloride (K-Dur) 40 meq TWICE A DAY GT 07/17/20 12:15 10/15/20 12:14 07/20/20 09:25 Quetiapine Fumarate (SEROqueL) 50 mg Q12HR GT 07/16/20 13:30 08/30/20 13:29 07/20/20 09:24 Vitamin D (Vitamin D) 5,000 unit DAILY GT 06/28/20 09:00 07/28/20 08:59 07/20/20 09:25 Laboratory Tests 07/19/20 18:35: POC Whole Blood Glucose 110H 07/19/20 22:00: Urine Color Brown, Urine Appearance Turbid, Urine pH 5, Urine Specific [place] 1.025, Urine Protein 3+H, Urine Glucose (UA) Negative, Urine Ketones 2+H, Urine Blood 5+H, Urine Nitrite Negative, Urine Bilirubin Negative, Urine Urobilinogen 1H, Urine Leukocyte Esterase 3+H, Urine RBC TntcH, Urine WBC TntcH, Urine Squamous Epithelial Cells None, Urine Amorphous Sediment ModerateH, Urine Ba cteria ManyH 07/20/20 03:30: White Blood Count 15.0H, Red Blood Count 3.05L, Hemoglobin 8.5L, Hematocrit 27.5L, Mean Corpuscular Volume 90, Mean Corpuscular Hemoglobin 28.0, Mean Corpuscular Hemoglobin Concent 30.9L, Red Cell Distribution Width 17.1H, Platelet Count 327, Mean Platelet Volume 7.6, Neutrophils (%) (Auto) 67.3, Lymphocytes (%) (Auto) 19.6L, Monocytes (%) (Auto) 5.6, Eosinophils (%) (Auto) 6.7H, Basophils (%) (Auto) 0.7, Sodium Level 138, Potassium Level 3.4L, Chloride Level 96L, Carbon Dioxide Level 37H, Blood Urea Nitrogen 18, Creatinine 0.6, Estimat Glomerular Filtration Rate > 60, Glucose Level 140H, Calcium Level 10.0 Height (Feet): 5 Height (Inches): 5.00 Weight (Pounds): 223 General Appearance: no apparent distress EENT: other - Trach to vent Cardiovascular: tachycardia Respiratory/Chest: decreased breath sounds Abdomen: distended Rigo Tyler MD Jul 20, 2020 13:35
--- NOTE | 2020-07-20 14:54 | NUR ---
CASE MANAGEMENT:REVIEW 07/20/20 SI: COVID PNA ~ INTUBATED 99.0 103 33 126/80 98% ON VENT SUPPORT W/50% FIO2 WBC+15.0 CO2+37 IS: IV CEFEPIME Q12 IV LASIX QD IV KCL X1 LOVENOX SQ Q12 K-DUR GT BID SEROQUEL GT Q12 MIDODRINE GT Q8HR : ICU STATUS PLAN: HOLD FEEDINGS D/T VOMITING PICC LINE PLACEMENT
--- NOTE | 2020-07-20 15:00 | NUR ---
NURSE NOTES: Pt awake ,stable noted no resp distress,Fi02 down to 45%,O2 sat 98%.
--- NOTE | 2020-07-20 15:54 | Cardiac Electrophysiology PN ---
Assessment/Plan Assessment/Plan 1. Respiratory failure due to COVID-19 pneumonia. On tracheostomy and is on the ventilator 40% FiO2. Echo EF 60% 2. Right lower extremity DVT. Follow up by Hematology. May need IVC filter placement. 3. Hypotension, on midodrine 10 mg 3 times daily. On Lasix 40 IV daily 4. Dysphagia. PEG rescheduled for tomorrow DW RN Subjective Subjective In ICU on the Vent via Trach 50% Fio2 in SR. No events PEG rescheduled for tomorrow Objective Last 24 Hour Vital Signs Date Time Temp Pulse Resp B/P (MAP) Pulse Ox O2 Delivery O2 Flow Rate FiO2 07/20/20 15:00 100 28 122/80 (94) 98 07/20/20 14:00 102 24 116/72 (87) 100 07/20/20 13:00 103 33 126/80 (95) 100 07/20/20 12:04 99.0 99 27 137/88 (104) 98 07/20/20 12:04 Mechanical Ventilator Mechanical Ventilator 07/20/20 12:03 50 07/20/20 12:00 104 07/20/20 11:00 105 29 142/90 (107) 98 07/20/20 10:00 118 23 127/59 (81) 98 07/20/20 09:00 110 24 127/91 (103) 97 07/20/20 08:00 107 07/20/20 08:00 106 31 123/90 (101) 97 07/20/20 08:00 99.0 07/20/20 08:00 50 07/20/20 08:00 Mechanical Ventilator Mechanical Ventilator 07/20/20 07:00 104 31 131/84 (100) 99 07/20/20 06:30 108 33 07/20/20 06:00 106 31 118/73 (88) 100 07/20/20 05:00 105 22 50 07/20/20 05:00 109 31 119/77 (91) 99 07/20/20 04:00 Mechanical Ventilator Mechanical Ventilator 07/20/20 04:00 111 07/20/20 04:00 50 07/20/20 04:00 99.8 111 28 120/98 (105) 100 07/20/20 03:34 110 32 50 07/20/20 03:00 122 35 106/67 (80) 100 07/20/20 02:00 105 25 94/51 (65) 99 07/20/20 01:36 102 24 50 07/20/20 01:00 102 23 88/56 (67) 99 07/20/20 00:00 Mechanical Ventilator Mechanical Ventilator 07/20/20 00:00 95 07/20/20 00:00 98.5 95 22 83/50 (61) 99 07/20/20 00:00 50 07/19/20 23:20 101 24 50 07/19/20 23:00 100 24 92/49 (63) 99 07/19/20 22:15 96/55 07/19/20 22:00 101 24 103/59 (74) 99 07/19/20 21:45 102 27 50 07/19/20 21:15 89 21 99/67 (78) 100 07/19/20 21:00 104 23 95/56 (69) 91 07/19/20 21:00 23 133/52 Mechanical Ventilator 50 07/19/20 21:00 23 133/52 Mechanical Ventilator 30 07/19/20 20:45 97 23 100/61 (74) 97 07/19/20 20:30 109 28 121/93 (102) 96 07/19/20 20:15 91 24 100/62 (75) 100 07/19/20 20:00 26 130/56 Mechanical Ventilator 50 07/19/20 20:00 26 130/56 Mechanical Ventilator 30 07/19/20 20:00 97.6 87 19 90/52 (65) 100 07/19/20 20:00 Mechanical Ventilator Mechanical Ventilator 07/19/20 19:53 90 20 50 07/19/20 19:45 107 22 102/63 (76) 89 07/19/20 19:34 24 97/61 Mechanical Ventilator 50 07/19/20 19:30 97 26 97/61 (73) 93 07/19/20 19:23 94 07/19/20 19:00 85 19 92/54 (67) 100 07/19/20 18:00 19 104/59 Mechanical Ventilator 50 07/19/20 18:00 100 22 104/59 (74) 100 07/19/20 17:00 28 104/61 Mechanical Ventilator 50 07/19/20 17:00 21 104/61 Mechanical Ventilator 50 07/19/20 17:00 108 28 104/61 (75) 90 07/19/20 16:00 84 19 / (72) 100 07/19/20 16:00 Mechanical Ventilator Mechanical Ventilator 07/19/20 16:00 86 07/19/20 16:00 50 07/19/20 16:00 19 Mechanical Ventilator 50 07/19/20 16:00 19 Mechanical Ventilator 50 07/19/20 16:00 99.0 Intake and Output 07/19/20 07/20/20 19:00 07:00 Intake Total 1074 ml 1005 ml Output Total 1160 ml 450 ml Balance -86 ml 555 ml Free Water 100 ml IV Total 494 ml 135 ml Tube Feeding 360 ml 720 ml Other 120 ml 150 ml Output Urine Total 1160 ml 430 ml Stool Total 20 ml # Bowel Movements 3 Laboratory Tests Test 07/19/20 18:35 07/19/20 22:00 07/20/20 03:30 POC Whole Blood Glucose 110 MG/DL (74-106) H Urine Color Brown Urine Appearance Turbid Urine pH 5 (4.5-8.0) Urine Specific [place] 1.025 (1.005-1.035) Urine Protein 3+ (NEGATIVE) H Urine Glucose (UA) Negative (NEGATIVE) Urine Ketones 2+ (NEGATIVE) H Urine Blood 5+ (NEGATIVE) H Urine Nitrite Negative (NEGATIVE) Urine Bilirubin Negative (NEGATIVE) Urine Urobilinogen 1 MG/DL (0.0-1.0) H Urine Leukocyte Esterase 3+ (NEGATIVE) H Urine RBC Tntc /HPF (0 - 2) H Urine WBC Tntc /HPF (0 - 2) H Urine Squamous Epithelial Cells None /LPF (NONE/OCC) Urine Amorphous Sediment Moderate /LPF (NONE) H Urine Bacteria Many /HPF (NONE) H White Blood Count 15.0 K/UL (4.8-10.8) H Red Blood Count 3.05 M/UL (4.20-5.40) L Hemoglobin 8.5 G/DL (12.0-16.0) L Hematocrit 27.5 % (37.0-47.0) L Mean Corpuscular Volume 90 FL (80-99) Mean Corpuscular Hemoglobin 28.0 PG (27.0-31.0) Mean Corpuscular Hemoglobin Concent 30.9 G/DL (32.0-36.0) L Red Cell Distribution Width 17.1 % (11.6-14.8) H Platelet Count 327 K/UL (150-450) Mean Platelet Volume 7.6 FL (6.5-10.1) Neutrophils (%) (Auto) 67.3 % (45.0-75.0) Lymphocytes (%) (Auto) 19.6 % (20.0-45.0) L Monocytes (%) (Auto) 5.6 % (1.0-10.0) Eosinophils (%) (Auto) 6.7 % (0.0-3.0) H Basophils (%) (Auto) 0.7 % (0.0-2.0) Sodium Level 138 MMOL/L (136-145) Potassium Level 3.4 MMOL/L (3.5-5.1) L Chloride Level 96 MMOL/L (98-107) L Carbon Dioxide Level 37 MMOL/L (21-32) H Blood Urea Nitrogen 18 mg/dL (7-18) Creatinine 0.6 MG/DL (0.55-1.30) Estimat Glomerular Filtration Rate > 60 mL/min (>60) Glucose Level 140 MG/DL (74-106) H Calcium Level 10.0 MG/DL (8.5-10.1) Objective HEAD AND NECK: Shows status post tracheostomy.NGT in place LUNGS: Coarse rhonchi. CARDIOVASCULAR: Shows regular S1 and S2 with no gallop. ABDOMEN: Soft. EXTREMITIES: Have 1+ pitting edema. Hill Burger MD Jul 20, 2020 15:54
--- NOTE | 2020-07-20 16:00 | NUR ---
NURSE NOTES: Oral care done ,tracheal secretions suctioned PRN.
--- NOTE | 2020-07-20 18:00 | NUR ---
NURSE NOTES: Pt had another episode of vomiting to liquid green emesis,while being flat on bed during bath.Pt with another BM, this time liquid diarrhea like stools in large amount.Pt turned,pulled up and repositioned.
[2020-07-20] MEDS: Acetaminophen 650mg/20.3ml NG PRN ×2 (18:12→20:42)
--- NOTE | 2020-07-20 18:45 | NUR ---
NURSE NOTES: R.T notified,Vent keep on alarming,cuff deflated,plan is to change the trach tube .
--- NOTE | 2020-07-20 19:25 | NUR ---
NURSE HAND-OFF REPORT: Latest Vital Signs: Temperature 100.0 , Pulse 105 , B/P 130 /85 , Respiratory Rate 33 , O2 SAT 99 , Mechanical Ventilator, O2 Flow Rate . Vital Sign Comment: unstable EKG Rhythm: Sinus Tachycardia Rhythm change?: N MD Notified?: N Response: Latest Meyers Fall Score: 70 Fall Risk: High Risk Safety Measures: Call light Within Reach, Bed Alarm Zone 1, Side Rails Side Rails x2, Bed position Low and Locked. Fall Precautions: Yellow Socks Door Sign Patient Fall Education Report given to Herberth Wilson Ch, R.N..
--- NOTE | 2020-07-20 19:54 | General Progress Note ---
Subjective Allergies: Coded Allergies: No Known Allergies (Unverified , 05/28/20) Subjective above noted d/w RN projectile vomiting noted TF held (+) rectal tube Objective Last 24 Hour Vital Signs Date Time Temp Pulse Resp B/P (MAP) Pulse Ox O2 Delivery O2 Flow Rate FiO2 07/20/20 18:42 100.0 07/20/20 18:03 105 33 130/85 (100) 99 07/20/20 17:00 100.4 102 29 120/80 (93) 07/20/20 16:49 106 34 45 07/20/20 16:00 45 07/20/20 16:00 50 07/20/20 16:00 96 24 113/80 (91) 99 07/20/20 16:00 Mechanical Ventilator Mechanical Ventilator 07/20/20 16:00 94 07/20/20 15:00 100 28 122/80 (94) 98 07/20/20 14:45 99 33 45 07/20/20 14:00 102 24 116/72 (87) 100 07/20/20 13:00 103 33 126/80 (95) 100 07/20/20 12:04 99.0 99 27 137/88 (104) 98 07/20/20 12:04 Mechanical Ventilator Mechanical Ventilator 07/20/20 12:03 50 07/20/20 12:00 104 07/20/20 11:00 103 35 50 07/20/20 11:00 105 29 142/90 (107) 98 07/20/20 10:00 118 23 127/59 (81) 98 07/20/20 09:00 110 24 127/91 (103) 97 07/20/20 09:00 104 34 50 07/20/20 08:00 107 07/20/20 08:00 106 31 123/90 (101) 97 07/20/20 08:00 99.0 07/20/20 08:00 50 07/20/20 08:00 Mechanical Ventilator Mechanical Ventilator 07/20/20 07:11 112 35 50 07/20/20 07:00 104 31 131/84 (100) 99 07/20/20 06:30 108 33 07/20/20 06:00 106 31 118/73 (88) 100 07/20/20 05:00 105 22 50 07/20/20 05:00 109 31 119/77 (91) 99 07/20/20 04:00 Mechanical Ventilator Mechanical Ventilator 07/20/20 04:00 111 07/20/20 04:00 50 07/20/20 04:00 99.8 111 28 120/98 (105) 100 07/20/20 03:34 110 32 50 07/20/20 03:00 122 35 106/67 (80) 100 07/20/20 02:00 105 25 94/51 (65) 99 07/20/20 01:36 102 24 50 07/20/20 01:00 102 23 88/56 (67) 99 07/20/20 00:00 Mechanical Ventilator Mechanical Ventilator 07/20/20 00:00 95 07/20/20 00:00 98.5 95 22 83/50 (61) 99 07/20/20 00:00 50 07/19/20 23:20 101 24 50 07/19/20 23:00 100 24 92/49 (63) 99 07/19/20 22:15 96/55 07/19/20 22:00 101 24 103/59 (74) 99 07/19/20 21:45 102 27 50 07/19/20 21:15 89 21 99/67 (78) 100 07/19/20 21:00 104 23 95/56 (69) 91 07/19/20 21:00 23 133/52 Mechanical Ventilator 50 07/19/20 21:00 23 133/52 Mechanical Ventilator 30 07/19/20 20:45 97 23 100/61 (74) 97 07/19/20 20:30 109 28 121/93 (102) 96 07/19/20 20:15 91 24 100/62 (75) 100 07/19/20 20:00 26 130/56 Mechanical Ventilator 50 07/19/20 20:00 26 130/56 Mechanical Ventilator 30 07/19/20 20:00 97.6 87 19 90/52 (65) 100 07/19/20 20:00 Mechanical Ventilator Mechanical Ventilator 07/19/20 19:53 90 20 50 Intake and Output 07/19/20 07/20/20 19:00 07:00 Intake Total 1074 ml 1005 ml Output Total 1160 ml 450 ml Balance -86 ml 555 ml Free Water 100 ml IV Total 494 ml 135 ml Tube Feeding 360 ml 720 ml Other 120 ml 150 ml Output Urine Total 1160 ml 430 ml Stool Total 20 ml # Bowel Movements 3 Laboratory Tests 07/19/20 22:00: Urine Color Brown, Urine Appearance Turbid, Urine pH 5, Urine Specific [place] 1.025, Urine Protein 3+H, Urine Glucose (UA) Negative, Urine Ketones 2+H, Urine Blood 5+H, Urine Nitrite Negative, Urine Bilirubin Negative, Urine Urobilinogen 1H, Urine Leukocyte Esterase 3+H, Urine RBC TntcH, Urine WBC TntcH, Urine Squamous Epithelial Cells None, Urine Amorphous Sediment ModerateH, Urine Bacteria ManyH 07/20/20 03:30: White Blood Count 15.0H, Red Blood Count 3.05L, Hemoglobin 8.5L, Hematocrit 27.5L, Mean Corpuscular Volume 90, Mean Corpuscular Hemoglobin 28.0, Mean Corpuscular Hemoglobin Concent 30.9L, Red Cell Distribution Width 17.1H, Platelet Count 327, Mean Platelet Volume 7.6, Neutrophils (%) (Auto) 67.3, Lymphocytes (%) (Auto) 19.6L, Monocytes (%) (Auto) 5.6, Eosinophils (%) (Auto) 6.7H, Basophils (%) (Auto) 0.7, Sodium Level 138, Potassium Level 3.4L, Chloride Level 96L, Carbon Dioxide Level 37H, Blood Urea Nitrogen 18, Creatinine 0.6, Estimat Glomerular Filtration Rate > 60, Glucose Level 140H, Calcium Level 10.0 Height (Feet): 5 Height (Inches): 5.00 Weight (Pounds): 223 Objective Obese woman NCAT (+) trach Coarse BS RR abd obese, soft no edema Assessment/Plan Status: unchanged Assessment/Plan: Assessment - h/o COVID infection, now negative - resp failure, s/p trach - N/V, ? gastroparesis - dysphagia - DM Recommendations - hold TF - IVF - Elevate HOB - Check KUB - PPI - add Robert Flynn MD Jul 20, 2020 19:54
[2020-07-20] MEDS ORDERED: Dyna-Hex 2% Top Sol 2oz TOPIC SCH (20:00)
[2020-07-20] MEDS: Dyna-Hex 2% Top Sol 2oz TOPIC SCH (20:00)
--- NOTE | 2020-07-20 20:00 | NUR ---
NURSE NOTES: Report received from Kamini RN.Pt asleep but easily awakens with touch and verbal stimuli, noted no resp distress,no c/o pain or discomfort, with trach tube to vent,ordered vent settings AC15/600/45%/5+ tolerated,NGT feeding jevity at 60ml/hr on hold and in placed per auscultation,no residual noted,Lennon cath draining yellow urine with sediments,Rectal tube in placed,skin hot to touch,pt with low grade fever T99.9 ,IV site to RT Femoral line TLC intact with NS TKO,SR up x2 HOB elevated bed lock in lowest position,will continie with plans of care.
--- NOTE | 2020-07-20 21:15 | Diagnostic Imaging Report ---
EXAM: XR Abdomen, 2 Views CLINICAL HISTORY: VOMITING TECHNIQUE: Frontal views of the abdomen. COMPARISON: 07/07/2020. Findings/impression: Tip of the enteric tube is projecting over the distal aspect of the distended stomach. Dilated loops of small bowel are identified with gas present within the normal caliber appearing large bowel. Findings may represent a small bowel ileus versus partial small bowel obstruction and continued radiographic follow-up recommended. Partially visualized thermometer catheter projecting over the pelvis and right femoral approach central line catheter. Course calcifications identified superior to the right sacroiliac joint of unclear etiology. Degenerative changes are noted in the thoracic and lumbar spine. The lower pelvis is collimated from view.
--- NOTE | 2020-07-20 22:00 | NUR ---
NURSE NOTES: Patient repositioned and suctioned, oral care performed, all due meds given. Xray at bedside to do Abd KUB. No discomfort at this time, Will continue to monitor
[2020-07-21] VITALS (29 sets, daily range): BP systolic 99–182; BP diastolic 63–111
--- NOTE | 2020-07-21 | NUR ---
NURSE NOTES: Patient sleeping, easily arousable, NAD at this time, VSS, afebrile/
[2020-07-21] MEDS: D5 1/2NS 1,000 ML IV SCH ×2 (02:00→14:58)
--- NOTE | 2020-07-21 02:00 | NUR ---
NURSE NOTES: Repositioned, suctioned, oral care, VSS.
--- NOTE | 2020-07-21 04:00 | NUR ---
NURSE NOTES: Sponge bath, linen changed, oral care given, suctioned, peripheral am labs draws done, NSR on the monitor, pulses noted, repositioned. Afebrile/
[2020-07-21 05:53] LABS: BASOPHILS % (AUTO) 0.5 % (0.0-2.0); EOSINOPHILS % (AUTO) 3.6 % (0.0-3.0); HEMATOCRIT 28.9 % (37.0-47.0); HEMOGLOBIN 8.8 G/DL (12.0-16.0); LYMPHOCYTES % (AUTO) 23.9 % (20.0-45.0); MEAN CORPUSCULAR VOLUME 92 FL (80-99); NEUTROPHILS % (AUTO) 65.9 % (45.0-75.0); PLATELET COUNT 364 K/UL (150-450); RED BLOOD COUNT 3.15 M/UL (4.20-5.40); WHITE BLOOD COUNT 12.9 K/UL (4.8-10.8)
--- NOTE | 2020-07-21 06:00 | NUR ---
NURSE NOTES: Repositioned and provided oral care. Patient remains awake and alert. Patient can verbalize needs. NAD at this time. VSS.
[2020-07-21] MEDS: Midodrine 10mg tab GT SCH ×3 (06:20→22:20)
[2020-07-21 06:43] LABS: ANION GAP 7 mmol/L (5-15); BLOOD UREA NITROGEN 14 mg/dL (7-18); CALCIUM 10.3 MG/DL (8.5-10.1); CARBON DIOXIDE 35 MMOL/L (21-32); CHLORIDE 96 MMOL/L (98-107); CREATININE 0.6 MG/DL (0.55-1.30); POTASSIUM 3.8 MMOL/L (3.5-5.1); SODIUM 138 MMOL/L (136-145)
--- NOTE | 2020-07-21 07:10 | NUR ---
NURSE NOTES: Report received from Herberth Rowe RN.Pt awake,alert ,able to speak noted no resp distress with trach tube to vent ,ordered vent settings tolerated,O2 sat 98%-100%,denies any c/o chest pain or discomfort,S-R on the monitor, tube feeding on hold ,NGT in placed per auscultation ,skin warm and dry ,no fever noted,IV site to RT Femoral line TLC intact with IVF D5 1/2 NS at 75 ml/hr,SR ,SR up x2 bilat wrist restraints in placed,HOB elevated ,bed lock in lowest position,will continue with plans of care.
--- NOTE | 2020-07-21 09:00 | NUR ---
NURSE NOTES: Dr Castro at bedside,updated re pt's results of KUB,pt with Ileus vs small bowel obstuction,ordered to connect NGT to low intermittent suction.
--- NOTE | 2020-07-21 09:15 | General Progress Note ---
Subjective Constitutional: Reports: weakness Allergies: Coded Allergies: No Known Allergies (Unverified , 05/28/20) All Systems: reviewed and negative except above Subjective trach vent ng in icu Objective Last 24 Hour Vital Signs Date Time Temp Pulse Resp B/P (MAP) Pulse Ox O2 Delivery O2 Flow Rate FiO2 07/21/20 09:02 85 25 128/79 (95) 100 07/21/20 08:25 101 29 50 07/21/20 08:00 98.8 89 27 129/85 (100) 100 07/21/20 08:00 Mechanical Ventilator Mechanical Ventilator 07/21/20 08:00 45 07/21/20 07:24 92 28 50 07/21/20 07:00 93 22 131/84 (100) 100 07/21/20 06:30 95 30 07/21/20 06:00 97 33 132/80 (97) 100 07/21/20 05:00 98.9 100 29 142/85 (104) 99 07/21/20 04:00 99 26 124/82 (96) 100 07/21/20 04:00 45 07/21/20 04:00 Mechanical Ventilator Mechanical Ventilator 07/21/20 04:00 100 07/21/20 03:33 99 31 50 07/21/20 03:00 99 27 128/74 (92) 99 07/21/20 02:00 90 29 104/63 (77) 100 07/21/20 01:00 88 26 99/65 (76) 100 07/21/20 00:00 99.7 81 20 106/68 (81) 100 07/21/20 00:00 45 07/21/20 00:00 Mechanical Ventilator Mechanical Ventilator 07/21/20 00:00 81 07/20/20 23:07 104 28 50 07/20/20 23:00 103 25 125/85 (98) 100 07/20/20 22:00 89 24 111/75 (87) 100 07/20/20 21:00 98 25 120/77 (91) 98 07/20/20 20:00 99.9 99 30 132/85 (101) 100 07/20/20 20:00 45 07/20/20 20:00 96 07/20/20 20:00 Mechanical Ventilator Mechanical Ventilator 07/20/20 19:30 97 28 137/97 (110) 100 07/20/20 19:10 104 33 70 2/27/21 19:00 109 30 125/91 (102) 100 07/20/20 18:42 100.0 07/20/20 18:03 105 33 130/85 (100) 99 07/20/20 17:00 100.4 102 29 120/80 (93) 07/20/20 16:49 106 34 45 07/20/20 16:00 45 07/20/20 16:00 50 07/20/20 16:00 96 24 113/80 (91) 99 07/20/20 16:00 Mechanical Ventilator Mechanical Ventilator 07/20/20 16:00 94 07/20/20 15:00 100 28 122/80 (94) 98 07/20/20 14:45 99 33 45 07/20/20 14:00 102 24 116/72 (87) 100 07/20/20 13:00 103 33 126/80 (95) 100 07/20/20 12:04 99.0 99 27 137/88 (104) 98 07/20/20 12:04 Mechanical Ventilator Mechanical Ventilator 07/20/20 12:03 50 07/20/20 12:00 104 07/20/20 11:00 103 35 50 07/20/20 11:00 105 29 142/90 (107) 98 07/20/20 10:00 118 23 127/59 (81) 98 Intake and Output 07/20/20 07/21/20 19:00 07:00 Intake Total 720 ml 865 ml Output Total 1481 ml 540 ml Balance -761 ml 325 ml Free Water 100 ml 60 ml IV Total 380 ml 805 ml Tube Feeding 120 ml Other 120 ml Output Urine Total 1180 ml 540 ml Stool Total 1 ml Emesis 300 ml # Bowel Movements 1 Laboratory Tests 07/21/20 03:36: White Blood Count 12.9H, Red Blood Count 3.15L, Hemoglobin 8.8L, Hematocrit 28.9L, Mean Corpuscular Volume 92, Mean Corpuscular Hemoglobin 28.0, Mean Corpuscular Hemoglobin Concent 30.5L, Red Cell Distribution Width 17.0H, Platelet Count 364, Mean Platelet Volume 7.8, Neutrophils (%) (Auto) 65.9, Lymphocytes (%) (Auto) 23.9, Monocytes (%) (Auto) 6.0, Eosinophils (%) (Auto) 3.6H, Basophils (%) (Auto) 0.5, Sodium Level 138, Potassium Level 3.8, Chloride Level 96L, Carbon Dioxide Level 35H, Anion Gap 7, Blood Urea Nitrogen 14, Creatinine 0.6, Estimat Glomerular Filtration Rate > 60, Glucose Level 130H, Mo cium Level 10.3H Height (Feet): 5 Height (Inches): 5.00 Weight (Pounds): 223 General Appearance: lethargic EENT: normal ENT inspection Neck: normal alignment Cardiovascular: normal peripheral pulses, normal rate, regular rhythm Respiratory/Chest: chest wall non-tender, lungs clear, normal breath sounds Abdomen: normal bowel sounds, non tender, soft Extremities: normal inspection Edema: no edema noted Arm (L), no edema noted Arm (R), no edema noted Leg (L), no edema noted Leg (R), no edema noted Pedal (L), no edema noted Pedal (R), no edema noted Generalized Neurologic: motor weakness Skin: normal pigmentation, warm/dry Assessment/Plan Problem List: (1) Hypoxia ICD Codes: R09.02 - Hypoxemia SNOMED: 352091617 (2) Respiratory failure ICD Codes: J96.90 - Respiratory failure, unspecified, unspecified whether with hypoxia or hypercapnia SNOMED: 122149532 (3) Respiratory distress ICD Codes: R06.03 - Acute respiratory distress; J12.82 - Pneumonia due to praveena navirus disease 2019 SNOMED: 075902439 (4) Pneumonia due to COVID-19 virus ICD Codes: U07.1 - COVID-19; J12.82 - Pneumonia due to coronavirus disease 2019 SNOMED: 736052939365711250 Status: unchanged Assessment/Plan: vent abx id pulm f/u cbc bmp am Tank Del Cid DO Jul 21, 2020 09:15
[2020-07-21] MEDS: Vitamin D 1000 units Tab GT SCH (09:23)
[2020-07-21] MEDS: Enoxaparin 120 mg inj SUBQ SCH ×2 (09:25→21:00)
[2020-07-21] MEDS: Cefepime HCl 2 GM in D5W 55 ML IVPB SCH ×2 (09:26→21:55)
--- NOTE | 2020-07-21 10:30 | NUR ---
NURSE NOTES: Dr Devine at bedside,informed re pt;s result of KUB,placed pt on weaning parameters,SIM 15 PS 15,Fio2 50%,Peep 5.
--- NOTE | 2020-07-21 11:19 | Surgery Progress Note ---
Surgery Progress Note Subjective Procedure Performed right femoral central venous line insertion Additional Comments Patient seen and examined bedside. No acute events. No nausea vomiting fever chills. Her cough has stopped functioning on a tracheostomy she is now awake alert talkative. Saturating 100% with minimal settings. Discussed with RT will plan for trach collar today if does not tolerate will place on vent again. KUB noted unlikely obstruction likely ileus Objective Last 24 Hour Vital Signs Date Time Temp Pulse Resp B/P (MAP) Pulse Ox O2 Delivery O2 Flow Rate FiO2 07/21/20 11:02 90 17 137/88 (104) 100 07/21/20 10:00 90 33 131/86 (101) 100 07/21/20 09:02 85 25 128/79 (95) 100 07/21/20 08:25 101 29 50 07/21/20 08:00 98.8 89 27 129/85 (100) 100 07/21/20 08:00 92 07/21/20 08:00 Mechanical Ventilator Mechanical Ventilator 07/21/20 08:00 45 07/21/20 07:24 92 28 50 07/21/20 07:00 93 22 131/84 (100) 100 07/21/20 06:30 95 30 07/21/20 06:00 97 33 132/80 (97) 100 07/21/20 05:00 98.9 100 29 142/85 (104) 99 07/21/20 04:00 99 26 124/82 (96) 100 07/21/20 04:00 45 07/21/20 04:00 Mechanical Ventilator Mechanical Ventilator 07/21/20 04:00 100 07/21/20 03:33 99 31 50 07/21/20 03:00 99 27 128/74 (92) 99 07/21/20 02:00 90 29 104/63 (77) 100 07/21/20 01:00 88 26 99/65 (76) 100 07/21/20 00:00 99.7 81 20 106/68 (81) 100 07/21/20 00:00 45 07/21/20 00:00 Mechanical Ventilator Mechanical Ventilator 07/21/20 00:00 81 07/20/20 23:07 104 28 50 07/20/20 23:00 103 25 125/85 (98) 100 07/20/20 22:00 89 24 111/75 (87) 100 07/20/20 21:00 98 25 120/77 (91) 98 07/20/20 20:00 99.9 99 30 132/85 (101) 100 07/20/20 20:00 45 07/20/20 20:00 96 07/20/20 20:00 Mechanical Ventilator Mechanical Ventilator 07/20/20 19:30 97 28 137/97 (110) 100 07/20/20 19:10 104 33 70 07/20/20 19:00 109 30 125/91 (102) 100 07/20/20 18:42 100.0 07/20/20 18:03 105 33 130/85 (100) 99 07/20/20 17:00 100.4 102 29 120/80 (93) 07/20/20 16:49 106 34 45 07/20/20 16:00 45 07/20/20 16:00 50 07/20/20 16:00 96 24 113/80 (91) 99 07/20/20 16:00 Mechanical Ventilator Mechanical Ventilator 07/20/20 16:00 94 07/20/20 15:00 100 28 122/80 (94) 98 07/20/20 14:45 99 33 45 07/20/20 14:00 102 24 116/72 (87) 100 07/20/20 13:00 103 33 126/80 (95) 100 07/20/20 12:04 99.0 99 27 137/88 (104) 98 07/20/20 12:04 Mechanical Ventilator Mechanical Ventilator 07/20/20 12:03 50 07/20/20 12:00 104 I&O Intake and Output 07/20/20 07/21/20 19:00 07:00 Intake Total 720 ml 865 ml Output Total 1481 ml 540 ml Balance -761 ml 325 ml Free Water 100 ml 60 ml IV Total 380 ml 805 ml Tube Feeding 120 ml Other 120 ml Output Urine Total 1180 ml 540 ml Stool Total 1 ml Emesis 300 ml # Bowel Movements 1 Dressing: saturated Cardiovascular: RSR Respiratory: decreased breath sounds Abdomen: soft, flat, distended, non-tender, present bowel sounds Extremities: no edema, no tenderness, no cyanosis Laboratory Tests Test 07/21/20 03:36 White Blood Count 12.9 K/UL (4.8-10.8) H Red Blood Count 3.15 M/UL (4.20-5.40) L Hemoglobin 8.8 G/DL (12.0-16.0) L Hematocrit 28.9 % (37.0-47.0) L Mean Corpuscular Volume 92 FL (80-99) Mean Corpuscular Hemoglobin 28.0 PG (27.0-31.0) Mean Corpuscular Hemoglobin Concent 30.5 G/DL (32.0-36.0) L Red Cell Distribution Width 17.0 % (11.6-14.8) H Platelet Count 364 K/UL (150-450) Mean Platelet Volume 7.8 FL (6.5-10.1) Neutrophils (%) (Auto) 65.9 % (45.0-75.0) Lymphocytes (%) (Auto) 23.9 % (20.0-45.0) Monocytes (%) (Auto) 6.0 % (1.0-10.0) Eosinophils (%) (Auto) 3.6 % (0.0-3.0) H Basophils (%) (Auto) 0.5 % (0.0-2.0) Sodium Level 138 MMOL/L (136-145) Potassium Level 3.8 MMOL/L (3.5-5.1) Chloride Level 96 MMOL/L (98-107) L Carbon Dioxide Level 35 MMOL/L (21-32) H Anion Gap 7 mmol/L (5-15) Blood Urea Nitrogen 14 mg/dL (7-18) Creatinine 0.6 MG/DL (0.55-1.30) Estimat Glomerular Filtration Rate > 60 mL/min (>60) Glucose Level 130 MG/DL (74-106) H Calcium Level 10.3 MG/DL (8.5-10.1) H Plan Problems: (1) Respiratory distress (2) Respiratory failure Assessment & Plan: 50-year-old female Covid positive respiratory insufficiency intubated on ventilatory support declining. Leukocytosis increase oxygen requirement. Vent settings per pulmonology reviewed identified and agree. Unfortunately further surgical invention at this time is not appropriate as patient is not a candidate and her current condition. Prognosis overall guarded. Tracheostomy can be considered in the future if recovering or shows im provement and requires unable to be weaned from ventilator support. Currently okay for nutritional optimization with NG tube. Will need significant monitoring for decubitus formation given patient's size and condition. Okay for air mattress tolerated. Turn every 2 hours as tolerated. Patient is otherwise critically ill and blood pressure labile. Will need to monitor closely.B ilateral infiltrates are again demonstrated. Stable tube and line positions. will need trach will need to wean vent first no cuff leak trach okay Improving weaning well DC planning placement much improved peg placement (3) Hypoxia (4) Pneumonia due to COVID-19 virus Assessment & Plan: ++ as per pulm and ID (5) Diabetes mellitus out of control Assessment & Plan: DAILY ESTIMATED NEEDS: Needs based on Critical care, obesity 11-14kcal/kg actual body wt (140kg) kcals/kg 1947-1736 total kcals 1.5-2.0g prot/kg IBW (64.5kg) g protein/kg 96-129 g total protein 25-30ml/kg abw (83kg) mL/kg 5745-8274 total fluid mLs NUTRITION DIAGNOSIS: Swallowing difficulty R/T respiratory failure as evidenced by pt orally intubated and sedated, on OGT feeds. CURRENT TF: Vital 1.2 goal of 60ml/hr ENTERAL NUTRITION RECOMMENDATIONS: Vital AF 1.2 @ 60ml/hr x 24 hrs to provide 1440ml, 1728kcal, 108g prot, 1168ml free water * Maintain current critical care and carb controlled TF formula of Vital AF * TF @ goal meeds 100% est kcal/prot needs * HOB over 30 degrees/ water flush per MD TF may be lowered to 55ml/hr for improved BG control while maintaining Kcal and pro needs. ADDITIONAL RECOMMENDATIONS: * Calibrated bedscale wt * Monitor Propofol rate, need for TF adjustment-> now off * Monitor BGs closely : now improved, on novolog q 6rs + NISS * Monitor lytes- K elevated, monitor need for TF change * Rec bowel regimen- now w/ rectal tube . zA Devine Jul 21, 2020 11:19
--- NOTE | 2020-07-21 11:20 | NUR ---
NURSE NOTES: Pt off the vent,placed on trach collar 50% Fio2,tolerated O2 sat 97%.
--- NOTE | 2020-07-21 11:52 | Hematology/Onc Progress Note ---
Assessment/Plan Assessment/Plan # Deep vein thrombosis of the right calf --> given onoing anemia and low plts --> consider ivc if bleeding--once stable, needs it placed --> once stable, for radiology and ivc filter placement # Thrombocytopenia is due to infection/underlying covid19+++ --> ABX ceftriaxone -->zosyn-->off --> on steriods likely cause of initial wbc --> per pulm --> plt 107->156-->192-->205 --> smear reviewed # Leukocytosis due to Pneumonia due to COVID-19 virus --> per pulm rx -> sp remdesivir --> wbc 11.9-->11-->21 # Anemia due to chronic disease --> hgb goal is >7 --> transfuse prn --> ferritin is >1000 --> hold off on iron --> 10-->9.8->9-->8-->8.2-->9.4-->8.1-->9.9-->9.6-->9.5-->9.6-->8.6 # Elevated ddimer due to covid19++ --> duplex legs is negative --> underlying covid rx # Hypoxia -> due to covid19 --> steriods as needed # Hypoxemia --> rx same as above # Respiratory failure --> on vent/trach --> per pulm # Diabetes mellitus out of control --> hgb a1c goal <7 # Poor prognosis # Dvt ppx ivc filter once more stable Appreciate consultation and bowen RN Subjective Allergies: Coded Allergies: No Known Allergies (Unverified , 05/28/20) All Systems: reviewed and negative except above Subjective 06/10 nv, on vent, with ogt, on fentanyl and versed, plt stable 06/11 nv, vent adjusted is on ogt, meds reviewed 06/12 nv, vent, meds noted, labs noted, no bleeding, hgb 10.4 06/13 nv, is on vent, meds reviewed, no bleeding, cbc reviewed 06/14 nv, on vent, tachy, labs reviewed, gross hematuria, febrile overnight, abx 06/17 nv, on vent, labs noted, no major changes, feeling better overnight 06/18 nv, meds reviewed, labs noted, no major events, hgb 8.6 06/19 nv, remains intubated, with fluids, labs reviewed, meds noted 06/20 nv, intubated remains on restraints, meds noted as well, as labs 06/21 nv, remains on vent, on restraints, meds reviewed, labs noted 06/22: covering Dr. Del Cid no acute events 06/23 sedated, on vent, nv, intubated, meds reviewed, versed 06/24 nv, on vent, no night sweats, no bleeding, remains in icu 06/25 nv, on vent, icu, meds noted, no bleeding, comfortable 06/26 nv, on versed, icu, weaning parameters, labs noted 06/27 nv, overnight fighting vent, as per pulm fentanyl on board 06/28 nv, on vent, labs reviewed, as per pulm, meds noted 06/30 nv, icu, labs pending, is on fentanyl, versed, no new changes 07/01 nv, icu, is on vent, labs pending, no new changes per rn 07/02 nv, icu is on vent, labs noted, hgb is stable 07/03 nv, icu, is on vent, potential trrach when stable, cbc reviewed 07/04 icu, nv, labs are noted, stable for trach today bowen Lizama 07/05 icu, nv, on vent, with ng and picc in place, labs noted, s/p trach 07/07 icu, nv, on tv, no bleeding, labs noted, meds reviewed 07/08 icu, nv, on tv, labs reviewed, meds noted, no bleeding 07/09 icu, nv, meds noted, no bleeding, blood transfusion was completed 07/10 icu, nv, labs ntoed, no bleeding, hgb improved, hgb 7.8 07/11 icu, nv, labs reviewed, hgb is improved, for ivcf if stabilizes 07/12 icu, nv, labs reviewed, meds noted, no bleeding, remains on vent 07/13 icu, on vent, nv, no bleeding, labs reviewed, no major events, bowen rn 07/14 icu, on vent, nv, tolerating ngt feeds, bowen Rn, meds reviewed 07/15 icu, on vent, trach, tolerating ngt, meds noted, no bleeding 07/16 icu, vent, labs are noted, with trach, is stable, hgb 9.2 07/17 icu, had a bm overnight, remains on vent with trach, labs noted 07/18 icu, nv, labs are ntoed, no bleeding, on trach, on levophed 07/20 nc, icu, meds noted, v/t, no bleeding, labs noted, on versed 07/21 nv, trach/vent, tube feeds on hold, labs reviewed, icu Objective Objective Current Medications Medications (Trade) Dose Ordered Sig/Zelda Route PRN Reason Start Time Stop Time Status Last Admin Dose Admin Acetaminophen (Tylenol) 650 mg Q4H PRN NG Temp >100.5 06/29/20 10:15 07/29/20 10:14 07/20/20 18:12 Acetaminophen (Tylenol) 650 mg Q6H PRN NG Mild Pain (Pain Scale 1-3) 06/29/20 10:15 07/29/20 10:14 07/20/20 20:42 Cefepime HCl 2 gm/ Dextrose 55 ml @ 110 mls/hr EVERY 12 HOURS IVPB 07/19/20 11:30 07/26/20 11:29 07/21/20 09:26 Chlorhexidine Gluconate (Inna-Hex 2%) 1 applic DAILY@2000 TOPIC 07/20/20 20:00 10/18/20 19:59 07/20/20 20:00 Dextrose (Dextrose 50%) 25 ml Q30M PRN IV Hypoglycemia 06/05/20 10:45 09/03/20 10:44 Dextrose (Dextrose 50%) 50 ml Q30M PRN IV Hypoglycemia 06/05/20 10:45 09/03/20 10:44 Dextrose/Sodium Chloride 1,000 ml @ 75 mls/hr [id number] IV 07/20/20 12:30 08/19/20 12:29 07/21/20 02:00 Enoxaparin Sodium (Lovenox) 110 mg EVERY 12 HOURS SUBQ 07/17/20 21:00 10/15/20 20:59 07/21/20 09:25 Furosemide (Lasix) 40 mg DAILY IV 06/22/20 09:00 07/22/20 08:59 07/21/20 09:23 Guaifenesin/ Codeine Phosphate (Robitussin with codeine) 5 ml Q6H PRN NG For Cough 07/14/20 14:15 08/13/20 14:14 07/18/20 21:44 Heparin Sodium/ Sodium Chloride (Heparin 1000 units/500ml Premix) 1,000 unit ONCE PRN IV PICC LINE 07/20/20 10:15 07/22/20 10:14 Lansoprazole (Prevacid) 30 mg DAILY GT 07/18/20 09:00 08/09/20 08:59 07/21/20 09:24 Lidocaine HCl (Xylocaine 1% 30ml) 30 ml ONCE PRN INJ PICC LINE 07/20/20 10:15 07/22/20 10:14 Midodrine (Pro-Amatine) 10 mg Q8HR GT 06/30/20 14:00 09/12/20 13:59 07/21/20 06:20 Potassium Chloride (K-Dur) 40 meq TWICE A DAY GT 07/17/20 12:15 10/15/20 12:14 07/21/20 09:24 Quetiapine Fumarate (SEROqueL) 50 mg Q12HR GT 07/16/20 13:30 08/30/20 13:29 07/21/20 09:23 Vitamin D (Vitamin D) 5,000 unit DAILY GT 06/28/20 09:00 07/28/20 08:59 07/21/20 09:23 Last 24 Hour Vital Signs Date Time Temp Pulse Resp B/P (MAP) Pulse Ox O2 Delivery O2 Flow Rate FiO2 07/21/20 11:02 90 17 137/88 (104) 100 07/21/20 10:00 90 33 131/86 (101) 100 07/21/20 09:02 85 25 128/79 (95) 100 07/21/20 08:25 101 29 50 07/21/20 08:00 98.8 89 27 129/85 (100) 100 07/21/20 08:00 92 07/21/20 08:00 Mechanical Ventilator Mechanical Ventilator 07/21/20 08:00 45 07/21/20 07:24 92 28 50 07/21/20 07:00 93 22 131/84 (100) 100 07/21/20 06:30 95 30 07/21/20 06:00 97 33 132/80 (97) 100 07/21/20 05:00 98.9 100 29 142/85 (104) 99 07/21/20 04:00 99 26 124/82 (96) 100 07/21/20 04:00 45 07/21/20 04:00 Mechanical Ventilator Mechanical Ventilator 07/21/20 04:00 100 07/21/20 03:33 99 31 50 07/21/20 03:00 99 27 128/74 (92) 99 07/21/20 02:00 90 29 104/63 (77) 100 07/21/20 01:00 88 26 99/65 (76) 100 07/21/20 00:00 99.7 81 20 106/68 (81) 100 07/21/20 00:00 45 07/21/20 00:00 Mechanical Ventilator Mechanical Ventilator 07/21/20 00:00 81 07/20/20 23:07 104 28 50 07/20/20 23:00 103 25 125/85 (98) 100 07/20/20 22:00 89 24 111/75 (87) 100 07/20/20 21:00 98 25 120/77 (91) 98 07/20/20 20:00 99.9 99 30 132/85 (101) 100 07/20/20 20:00 45 07/20/20 20:00 96 07/20/20 20:00 Mechanical Ventilator Mechanical Ventilator 07/20/20 19:30 97 28 137/97 (110) 100 07/20/20 19:10 104 33 70 07/20/20 19:00 109 30 125/91 (102) 100 07/20/20 18:42 100.0 07/20/20 18:03 105 33 130/85 (100) 99 07/20/20 17:00 100.4 102 29 120/80 (93) 07/20/20 16:49 106 34 45 07/20/20 16:00 45 07/20/20 16:00 50 07/20/20 16:00 96 24 113/80 (91) 99 07/20/20 16:00 Mechanical Ventilator Mechanical Ventilator 07/20/20 16:00 94 07/20/20 15:00 100 28 122/80 (94) 98 07/20/20 14:45 99 33 45 07/20/20 14:00 102 24 116/72 (87) 100 07/20/20 13:00 103 33 126/80 (95) 100 07/20/20 12:04 99.0 99 27 137/88 (104) 98 07/20/20 12:04 Mechanical Ventilator Mechanical Ventilator 07/20/20 12:03 50 07/20/20 12:00 104 07/20/20 11:00 103 35 50 07/20/20 11:00 105 29 142/90 (107) 98 07/20/20 10:00 118 23 127/59 (81) 98 07/20/20 09:00 110 24 127/91 (103) 97 07/20/20 09:00 104 34 50 07/20/20 08:00 107 07/20/20 08:00 106 31 123/90 (101) 97 07/20/20 08:00 99.0 07/20/20 08:00 50 07/20/20 08:00 Mechanical Ventilator Mechanical Ventilator 07/20/20 07:11 112 35 50 07/20/20 07:00 104 31 131/84 (100) 99 07/20/20 06:30 108 33 07/20/20 06:00 106 31 118/73 (88) 100 07/20/20 05:00 105 22 50 07/20/20 05:00 109 31 119/77 (91) 99 07/20/20 04:00 Mechanical Ventilator Mechanical Ventilator 07/20/20 04:00 111 07/20/20 04:00 50 07/20/20 04:00 99.8 111 28 120/98 (105) 100 07/20/20 03:34 110 32 50 07/20/20 03:00 122 35 106/67 (80) 100 07/20/20 02:00 105 25 94/51 (65) 99 07/20/20 01:36 102 24 50 07/20/20 01:00 102 23 88/56 (67) 99 07/20/20 00:00 Mechanical Ventilator Mechanical Ventilator 07/20/20 00:00 95 07/20/20 00:00 98.5 95 22 83/50 (61) 99 07/20/20 00:00 50 07/19/20 23:20 101 24 50 07/19/20 23:00 100 24 92/49 (63) 99 07/19/20 22:15 96/55 07/19/20 22:00 101 24 103/59 (74) 99 07/19/20 21:45 102 27 50 07/19/20 21:15 89 21 99/67 (78) 100 07/19/20 21:00 104 23 95/56 (69) 91 07/19/20 21:00 23 133/52 Mechanical Ventilator 50 07/19/20 21:00 23 133/52 Mechanical Ventilator 30 07/19/20 20:45 97 23 100/61 (74) 97 07/19/20 20:30 109 28 121/93 (102) 96 07/19/20 20:15 91 24 100/62 (75) 100 07/19/20 20:00 26 130/56 Mechanical Ventilator 50 07/19/20 20:00 26 130/56 Mechanical Ventilator 30 07/19/20 20:00 97.6 87 19 90/52 (65) 100 07/19/20 20:00 Mechanical Ventilator Mechanical Ventilator 07/19/20 19:53 90 20 50 07/19/20 19:45 107 22 102/63 (76) 89 07/19/20 19:34 24 97/61 Mechanical Ventilator 50 07/19/20 19:30 97 26 97/61 (73) 93 07/19/20 19:23 94 07/19/20 19:00 85 19 92/54 (67) 100 07/19/20 18:00 19 104/59 Mechanical Ventilator 50 07/19/20 18:00 100 22 104/59 (74) 100 07/19/20 17:00 28 104/61 Mechanical Ventilator 50 07/19/20 17:00 21 104/61 Mechanical Ventilator 50 07/19/20 17:00 108 28 104/61 (75) 90 07/19/20 16:00 84 19 93/61 (72) 100 07/19/20 16:00 Mechanical Ventilator Mechanical Ventilator 07/19/20 16:00 86 07/19/20 16:00 50 07/19/20 16:00 19 93/61 Mechanical Ventilator 50 07/19/20 16:00 19 93/61 Mechanical Ventilator 50 07/19/20 16:00 99.0 07/19/20 15:48 86 17 50 07/19/20 15:00 18 100/59 Mechanical Ventilator 50 07/19/20 15:00 18 100/59 Mechanical Ventilator 50 07/19/20 15:00 91 19 100/59 (73) 99 07/19/20 14:11 20 106/60 Mechanical Ventilator 50 07/19/20 14:00 103 25 110/66 (81) 100 07/19/20 14:00 21 103/60 Mechanical Ventilator 50 07/19/20 14:00 21 103/60 Mechanical Ventilator 50 07/19/20 13:00 25 110/66 Mechanical Ventilator 50 07/19/20 13:00 25 110/66 Mechanical Ventilator 50 07/19/20 13:00 103 25 110/66 (81) 100 07/19/20 12:11 22 110/65 Mechanical Ventilator 50 07/19/20 12:00 100 07/19/20 12:00 24 108/64 Mechanical Ventilator 50 07/19/20 12:00 24 108/64 Mechanical Ventilator 50 07/19/20 12:00 Mechanical Ventilator Mechanical Ventilator 07/19/20 12:00 50 07/19/20 12:00 99.2 106 24 108/64 (79) 98 l Intake and Output 07/20/20 07/21/20 19:00 07:00 Intake Total 720 ml 865 ml Output Total 1481 ml 540 ml Balance -761 ml 325 ml Free Water 100 ml 60 ml IV Total 380 ml 805 ml Tube Feeding 120 ml Other 120 ml Output Urine Total 1180 ml 540 ml Stool Total 1 ml Emesis 300 ml # Bowel Movements 1 Labs Test 07/19/20 03:50 07/19/20 18:35 07/19/20 22:00 07/20/20 03:30 White Blood Count 21.7 K/UL (4.8-10.8) 15.0 K/UL (4.8-10.8) Red Blood Count 3.03 M/UL (4.20-5.40) 3.05 M/UL (4.20-5.40) Hemoglobin 8.6 G/DL (12.0-16.0) 8.5 G/DL (12.0-16.0) Hematocrit 27.4 % (37.0-47.0) 27.5 % (37.0-47.0) Mean Corpuscular Volume 90 FL (80-99) 90 FL (80-99) Mean Corpuscular Hemoglobin 28.2 PG (27.0-31.0) 28.0 PG (27.0-31.0) Mean Corpuscular Hemoglobin Concent 31.3 G/DL (32.0-36.0) 30.9 G/DL (32.0-36.0) Red Cell Distribution Width 16.9 % (11.6-14.8) 17.1 % (11.6-14.8) Platelet Count 355 K/UL (150-450) 327 K/UL (150-450) Mean Platelet Volume 7.4 FL (6.5-10.1) 7.6 FL (6.5-10.1) Neutrophils (%) (Auto) % (45.0-75.0) 67.3 % (45.0-75.0) Lymphocytes (%) (Auto) % (20.0-45.0) 19.6 % (20.0-45.0) Monocytes (%) (Auto) % (1.0-10.0) 5.6 % (1.0-10.0) Eosinophils (%) (Auto) % (0.0-3.0) 6.7 % (0.0-3.0) Basophils (%) (Auto) % (0.0-2.0) 0.7 % (0.0-2.0) Differential Total Cells Counted 100 Neutrophils % (Manual) 77 % (45-75) Lymphocytes % (Manual) 13 % (20-45) Monocytes % (Manual) 4 % (1-10) Eosinophils % (Manual) 0 % (0-3) Basophils % (Manual) 0 % (0-2) Band Neutrophils 6 % (0-8) Platelet Estimate Adequate Platelet Morphology Normal Hypochromasia 1+ Anisocytosis 1+ Stomatocytes Occasional Prothrombin Time 13.3 SEC (9.30-11.50) Prothromb Time International Ratio 1.2 (0.9-1.1) Sodium Level 139 MMOL/L (136-145) 138 MMOL/L (136-145) Potassium Level 3.5 MMOL/L (3.5-5.1) 3.4 MMOL/L (3.5-5.1) Chloride Level 96 MMOL/L (98-107) 96 MMOL/L (98-107) Carbon Dioxide Level 36 MMOL/L (21-32) 37 MMOL/L (21-32) Anion Gap 7 mmol/L (5-15) Blood Urea Nitrogen 17 mg/dL (7-18) 18 mg/dL (7-18) Creatinine 0.6 MG/DL (0.55-1.30) 0.6 MG/DL (0.55-1.30) Estimat Glomerular Filtration Rate > 60 mL/min (>60) > 60 mL/min (>60) Glucose Level 163 MG/DL (74-106) 140 MG/DL (74-106) Calcium Level 9.9 MG/DL (8.5-10.1) 10.0 MG/DL (8.5-10.1) Phosphorus Level 4.5 MG/DL (2.5-4.9) Magnesium Level 1.5 MG/DL (1.8-2.4) Total Bilirubin 0.7 MG/DL (0.2-1.0) Aspartate Amino Transf (AST/SGOT) 49 U/L (15-37) Alanine Aminotransferase (ALT/SGPT) 27 U/L (12-78) Alkaline Phosphatase 80 U/L (46-116) Total Protein 7.7 G/DL (6.4-8.2) Albumin 2.3 G/DL (3.4-5.0) Globulin 5.4 g/dL Albumin/Globulin Ratio 0.4 (1.0-2.7) POC Whole Blood Glucose 110 MG/DL (74-106) Urine Color Brown Urine Appearance Turbid Urine pH 5 (4.5-8.0) Urine Specific Otis 1.025 (1.005-1.035) Urine Protein 3+ (NEGATIVE) Urine Glucose (UA) Negative (NEGATIVE) Urine Ketones 2+ (NEGATIVE) Urine Blood 5+ (NEGATIVE) Urine Nitrite Negative (NEGATIVE) Urine Bilirubin Negative (NEGATIVE) Urine Urobilinogen 1 MG/DL (0.0-1.0) Urine Leukocyte Esterase 3+ (NEGATIVE) Urine RBC Tntc /HPF (0 - 2) Urine WBC Tntc /HPF (0 - 2) Urine Squamous Epithelial Cells None /LPF (NONE/OCC) Urine Amorphous Sediment Moderate /LPF (NONE) Urine Bacteria Many /HPF (NONE) Test 07/21/20 03:36 White Blood Count 12.9 K/UL (4.8-10.8) Red Blood Count 3.15 M/UL (4.20-5.40) Hemoglobin 8.8 G/DL (12.0-16.0) Hematocrit 28.9 % (37.0-47.0) Mean Corpuscular Volume 92 FL (80-99) Mean Corpuscular Hemoglobin 28.0 PG (27.0-31.0) Mean Corpuscular Hemoglobin Concent 30.5 G/DL (32.0-36.0) Red Cell Distribution Width 17.0 % (11.6-14.8) Platelet Count 364 K/UL (150-450) Mean Platelet Volume 7.8 FL (6.5-10.1) Neutrophils (%) (Auto) 65.9 % (45.0-75.0) Lymphocytes (%) (Auto) 23.9 % (20.0-45.0) Monocytes (%) (Auto) 6.0 % (1.0-10.0) Eosinophils (%) (Auto) 3.6 % (0.0-3.0) Basophils (%) (Auto) 0.5 % (0.0-2.0) Sodium Level 138 MMOL/L (136-145) Potassium Level 3.8 MMOL/L (3.5-5.1) Chloride Level 96 MMOL/L (98-107) Carbon Dioxide Level 35 MMOL/L (21-32) Anion Gap 7 mmol/L (5-15) Blood Urea Nitrogen 14 mg/dL (7-18) Creatinine 0.6 MG/DL (0.55-1.30) Estimat Glomerular Filtration Rate > 60 mL/min (>60) Glucose Level 130 MG/DL (74-106) Calcium Level 10.3 MG/DL (8.5-10.1) Height (Feet): 5 Height (Inches): 5.00 Weight (Pounds): 223 Objective GeNL: nv HEENT: ngt++ Pulm: vent/trach++ CV: rrr Abd: soft, nt, nd Ext: no cce Myron Condon MD Jul 21, 2020 11:52
--- NOTE | 2020-07-21 12:12 | Nephrology Progress Note ---
Assessment/Plan Problem List: (1) DEVNEDRA (acute kidney injury) (2) Morbid obesity (3) Diabetes mellitus out of control (4) Pneumonia due to COVID-19 virus (5) Respiratory failure Assessment Acute renal failure Obstructive uropathy, clogged Lennon Respiratory failure COVID-19 pneumonia Morbid obesity Plan July 21: Status quo. Awake responsive. Labs reviewed. Medication list reviewed. Stable from renal standpoint of view. Due for PEG tomorrow. Continue her current management. July 20: Status quo. PEG procedure deferred to July 22. Patient remains full code. Abnormal electrolytes addressed. FiO2 50% unchanged. Continue per consultants. July 19: Status quo. Due for PEG insertion today. Remains full code. Trach and vent. Low magnesium addressed. Continue per consultants. FiO2 50%. July 18: Status quo. Labs reviewed. Low potassium addressed. Continue per consultants. Remains full code. July 17: Remains full code. Trach to vent. FiO2 40%. Labs reviewed. Low potassium addressed. Continue per consultants. July 16: Status quo. FiO2 45%. Discussed with RN. Continue to taper her mind altering medications and sedatives. Stable from renal standpoint of view. Abnormal electrolytes addressed. July 15: Full code. FiO2 50%. Intubated on ventilator. No labs drawn today. Continue per consultants. July 14: Status quo. FiO2 50%. Labs reviewed. Renal parameters stable. Continue per current treatment plan and consultants. Medication list reviewed. July 13: FiO2 60% unchanged. Labs reviewed. Renal parameters stable. Medication list reviewed. Continue per consultants. July 12: Full code. Labs reviewed. Normal electrolytes addressed. Continue per pulmonary. Medication list reviewed. July 11: Remains full code. On ventilator. FiO2 down to 65%. Renal parameters stable. Low magnesium addressed. Continue her current management. July 10: Full code. On ventilator. FiO2 70%. Hemoglobin mid sevens. Renal parameters stable. Continue per consultants. July 09: Labs reviewed. Renal parameters stable. FiO2 80% unchanged. Continue per pulmonary. July 08: Labs reviewed. Renal parameters and electrolytes stable. ABG suggestive of high PCO2. At this time patient is on FiO2 of 80%. Continue per pulmonary. Continue to monitor renal parameters. July 07: No CHEM panel drawn today. More potassium given. Continue to monitor renal parameters. Continue per consultants. Discussed with RAKEL Veras. July 06: Low potassium addressed. Albumin bolus for low BP given. Patient remains full code. Continue to monitor electrolytes and renal parameters. Continue per consultants. Hemoglobin low today, transfusion per foreign clerk. July 05: Trach to vent. FiO2 80%. Renal parameters stable. PCO2 remains high at 44. Continue to monitor renal parameters. July 04: Patient now trach. Full code. Labs reviewed. Renal parameters stable. Low magnesium addressed. July 03: Intubated. Full code. Labs reviewed. Abnormal electrolytes addressed. Continue per consultants. Overall status unchanged. July 02: Remains intubated. Remains full code. Remains on FiO2 of 70%. Labs reviewed. Abnormal electrolytes addressed. Continue per pulmonary. July 01: Remains on 70% FiO2. Full code. Intubated on ventilator. Retaining CO2. Discussed with RN. Will do ABG today. Albumin bolus given. 1 dose of Diamox given. June 30: Status quo. Labs reviewed. Abnormal electrolytes addressed. Remains full code. Remains on ventilator. Magnesium sulfate 4 gram IVPB given. June 29: Full code. Intubated on ventilator. Labs reviewed. Stable from renal standpoint of view. Continue per consultants. June 28: Remains full code. Remains intubated on ventilator. Labs reviewed. Vitamin D supplement ordered. Continue to monitor renal parameters. Continue per consultants. June 27: Remains full code. Intubated on ventilator. Labs reviewed. Abnormal electrolyte addressed. Continue to monitor renal parameters and electrolytes. Continue per consultants. June 26: Labs reviewed. Remains full code. Remains intubated. Back on NGT feeding. Continue to monitor renal parameters. June 25: Labs reviewed. Renal parameters stable. Remains full code. Due to positional status patient could not be fed via NG tube. Starting TPN? Is being entertained. Continue per consultants. June 24: Labs reviewed. Renal parameters stable. Remains full code. Remains intubated on ventilator. Continue per consultants. June 23: Labs reviewed. Renal parameters stable. Discussed with RN. Abnormal electrolyte addressed. Remains full code. Remains on ventilator. Continue per consultants. June 22: Labs reviewed. Low potassium addressed. Discussed with RAKEL Moran. Patient full code. Remains on ventilator. Continue to monitor renal parameters. June 21. Labs reviewed. Abnormal electrolyte addressed. Full code. Remains on ventilator. Medication list reviewed. Continue per pulmonary management. DC IV fluid, resume Lasix daily, check chest x-ray. June 20: Labs reviewed. Abnormal electrolytes. Patient remains full code. Continue per consultants. Noted and addressed June 19: Labs reviewed. Abnormal electrolytes noted and addressed. Remains intubated on ventilator. Remains full code. June 18: Labs reviewed. Remains intubated on ventilator. Full code. Abnormal electrolyte addressed. Continue as is. June 17: Labs reviewed. Abnormal electrolytes addressed. Patient remains full code and intubated on ventilator. Continue per consultants. Renal parameters are within normal limits. June 16: Labs reviewed. Potassium chloride replaced. Remains full code. Remains intubated on ventilator. Continue per consultants. Continue to monitor renal parameters. June 15: Labs reviewed. Serum creatinine 1. Stable from renal standpoint to view. Continue per consultants. June 14: Labs reviewed. Full code. Serum creatinine of 3.5 down to 1.4. Low potassium addressed. Continue per current treatment plan. Continue to monitor renal parameters. Midodrine started. Albumin bolus given. Previously: DC Lasix drip Increase Protonix dose Monitor renal parameters, electrolytes Per orders Subjective ROS Limited/Unobtainable: Yes Objective Objective Last 24 Hour Vital Signs Date Time Temp Pulse Resp B/P (MAP) Pulse Ox O2 Delivery O2 Flow Rate FiO2 07/21/20 11:02 90 17 137/88 (104) 100 07/21/20 10:00 90 33 131/86 (101) 100 07/21/20 09:02 85 25 128/79 (95) 100 07/21/20 08:25 101 29 50 07/21/20 08:00 98.8 89 27 129/85 (100) 100 07/21/20 08:00 92 07/21/20 08:00 Mechanical Ventilator Mechanical Ventilator 07/21/20 08:00 45 07/21/20 07:24 92 28 50 07/21/20 07:00 93 22 131/84 (100) 100 07/21/20 06:30 95 30 07/21/20 06:00 97 33 132/80 (97) 100 07/21/20 05:00 98.9 100 29 142/85 (104) 99 07/21/20 04:00 99 26 124/82 (96) 100 07/21/20 04:00 45 07/21/20 04:00 Mechanical Ventilator Mechanical Ventilator 07/21/20 04:00 100 07/21/20 03:33 99 31 50 07/21/20 03:00 99 27 128/74 (92) 99 07/21/20 02:00 90 29 104/63 (77) 100 07/21/20 01:00 88 26 99/65 (76) 100 07/21/20 00:00 99.7 81 20 106/68 (81) 100 07/21/20 00:00 45 07/21/20 00:00 Mechanical Ventilator Mechanical Ventilator 07/21/20 00:00 81 07/20/20 23:07 104 28 50 07/20/20 23:00 103 25 125/85 (98) 100 07/20/20 22:00 89 24 111/75 (87) 100 07/20/20 21:00 98 25 120/77 (91) 98 07/20/20 20:00 99.9 99 30 132/85 (101) 100 07/20/20 20:00 45 07/20/20 20:00 96 07/20/20 20:00 Mechanical Ventilator Mechanical Ventilator 07/20/20 19:30 97 28 137/97 (110) 100 07/20/20 19:10 104 33 70 07/20/20 19:00 109 30 125/91 (102) 100 07/20/20 18:42 100.0 07/20/20 18:03 105 33 130/85 (100) 99 07/20/20 17:00 100.4 102 29 120/80 (93) 07/20/20 16:49 106 34 45 07/20/20 16:00 45 07/20/20 16:00 50 07/20/20 16:00 96 24 113/80 (91) 99 07/20/20 16:00 Mechanical Ventilator Mechanical Ventilator 07/20/20 16:00 94 07/20/20 15:00 100 28 122/80 (94) 98 07/20/20 14:45 99 33 45 07/20/20 14:00 102 24 116/72 (87) 100 07/20/20 13:00 103 33 126/80 (95) 100 Intake and Output 07/20/20 07/21/20 19:00 07:00 Intake Total 720 ml 865 ml Output Total 1481 ml 540 ml Balance -761 ml 325 ml Free Water 100 ml 60 ml IV Total 380 ml 805 ml Tube Feeding 120 ml Other 120 ml Output Urine Total 1180 ml 540 ml Stool Total 1 ml Emesis 300 ml # Bowel Movements 1 Current Medications Medications (Trade) Dose Ordered Sig/Zelda Route PRN Reason Start Time Stop Time Status Last Admin Dose Admin Acetaminophen (Tylenol) 650 mg Q4H PRN NG Temp >100.5 06/29/20 10:15 07/29/20 10:14 07/20/20 18:12 Acetaminophen (Tylenol) 650 mg Q6H PRN NG Mild Pain (Pain Scale 1-3) 06/29/20 10:15 07/29/20 10:14 07/20/20 20:42 Cefepime HCl 2 gm/ Dextrose 55 ml @ 110 mls/hr EVERY 12 HOURS IVPB 07/19/20 11:30 07/26/20 11:29 07/21/20 09:26 Chlorhexidine Gluconate (Inna-Hex 2%) 1 applic DAILY@2000 TOPIC 07/20/20 20:00 10/18/20 19:59 07/20/20 20:00 Dextrose (Dextrose 50%) 25 ml Q30M PRN IV Hypoglycemia 06/05/20 10:45 09/03/20 10:44 Dextrose (Dextrose 50%) 50 ml Q30M PRN IV Hypoglycemia 06/05/20 10:45 09/03/20 10:44 Dextrose/Sodium Chloride 1,000 ml @ 75 mls/hr [id number] IV 07/20/20 12:30 08/19/20 12:29 07/21/20 02:00 Enoxaparin Sodium (Lovenox) 110 mg EVERY 12 HOURS SUBQ 07/17/20 21:00 10/15/20 20:59 07/21/20 09:25 Furosemide (Lasix) 40 mg DAILY IV 06/22/20 09:00 07/22/20 08:59 07/21/20 09:23 Guaifenesin/ Codeine Phosphate (Robitussin with codeine) 5 ml Q6H PRN NG For Cough 07/14/20 14:15 08/13/20 14:14 07/18/20 21:44 Heparin Sodium/ Sodium Chloride (Heparin 1000 units/500ml Premix) 1,000 unit ONCE PRN IV PICC LINE 07/20/20 10:15 07/22/20 10:14 Lansoprazole (Prevacid) 30 mg DAILY GT 07/18/20 09:00 08/09/20 08:59 07/21/20 09:24 Lidocaine HCl (Xylocaine 1% 30ml) 30 ml ONCE PRN INJ PICC LINE 07/20/20 10:15 07/22/20 10:14 Midodrine (Pro-Amatine) 10 mg Q8HR GT 06/30/20 14:00 09/12/20 13:59 07/21/20 06:20 Potassium Chloride (K-Dur) 40 meq TWICE A DAY GT 07/17/20 12:15 10/15/20 12:14 07/21/20 09:24 Quetiapine Fumarate (SEROqueL) 50 mg Q12HR GT 07/16/20 13:30 08/30/20 13:29 07/21/20 09:23 Vitamin D (Vitamin D) 5,000 unit DAILY GT 06/28/20 09:00 07/28/20 08:59 07/21/20 09:23 Laboratory Tests 07/21/20 03:36: White Blood Count 12.9H, Red Blood Count 3.15L, Hemoglobin 8.8L, Hematocrit 28.9L, Mean Corpuscular Volume 92, Mean Corpuscular Hemoglobin 28.0, Mean Corpuscular Hemoglobin Concent 30.5L, Red Cell Distribution Width 17.0H, Pl atelet Count 364, Mean Platelet Volume 7.8, Neutrophils (%) (Auto) 65.9, Lymphocytes (%) (Auto) 23.9, Monocytes (%) (Auto) 6.0, Eosinophils (%) (Auto) 3.6H, Basophils (%) (Auto) 0.5, Sodium Level 138, Potassium Level 3.8, Chloride Level 96L, Carbon Dioxide Level 35H, Anion Gap 7, Blood Urea Nitrogen 14, Creatinine 0.6, Estimat Glomerular Filtration Rate > 60, Glucose Level 130H, Calcium Level 10.3H Height (Feet): 5 Height (Inches): 5.00 Weight (Pounds): 223 General Appearance: no apparent distress EENT: other - Trach to vent Cardiovascular: tachycardia Respiratory/Chest: decreased breath sounds Abdomen: distended Rigo Tyler MD Jul 21, 2020 12:12
--- NOTE | 2020-07-21 12:51 | Pulmonology Progress Note ---
Subjective ROS Limited/Unobtainable: Yes Interval Events: S/p tracheostomy Constitutional: Reports: fever, other - resolved HEENT: Repors: no symptoms Respiratory: Reports: no symptoms Cardiovascular: Reports: no symptoms Gastrointestinal/Abdominal: Reports: vomiting Genitourinary: Reports: no symptoms Allergies: Coded Allergies: No Known Allergies (Unverified , 05/28/20) All Systems: reviewed and negative except above Objective Last 24 Hour Vital Signs Date Time Temp Pulse Resp B/P (MAP) Pulse Ox O2 Delivery O2 Flow Rate FiO2 07/21/20 11:02 90 17 137/88 (104) 100 07/21/20 10:00 90 33 131/86 (101) 100 07/21/20 09:02 85 25 128/79 (95) 100 07/21/20 08:25 101 29 50 07/21/20 08:00 98.8 89 27 129/85 (100) 100 07/21/20 08:00 92 07/21/20 08:00 Mechanical Ventilator Mechanical Ventilator 07/21/20 08:00 45 07/21/20 07:24 92 28 50 07/21/20 07:00 93 22 131/84 (100) 100 07/21/20 06:30 95 30 07/21/20 06:00 97 33 132/80 (97) 100 07/21/20 05:00 98.9 100 29 142/85 (104) 99 07/21/20 04:00 99 26 124/82 (96) 100 07/21/20 04:00 45 07/21/20 04:00 Mechanical Ventilator Mechanical Ventilator 07/21/20 04:00 100 07/21/20 03:33 99 31 50 07/21/20 03:00 99 27 128/74 (92) 99 07/21/20 02:00 90 29 104/63 (77) 100 07/21/20 01:00 88 26 99/65 (76) 100 07/21/20 00:00 99.7 81 20 106/68 (81) 100 07/21/20 00:00 45 07/21/20 00:00 Mechanical Ventilator Mechanical Ventilator 07/21/20 00:00 81 07/20/20 23:07 104 28 50 07/20/20 23:00 103 25 125/85 (98) 100 07/20/20 22:00 89 24 111/75 (87) 100 07/20/20 21:00 98 25 120/77 (91) 98 07/20/20 20:00 99.9 99 30 132/85 (101) 100 07/20/20 20:00 45 07/20/20 20:00 96 07/20/20 20:00 Mechanical Ventilator Mechanical Ventilator 07/20/20 19:30 97 28 137/97 (110) 100 07/20/20 19:10 104 33 70 07/20/20 19:00 109 30 125/91 (102) 100 07/20/20 18:42 100.0 07/20/20 18:03 105 33 130/85 (100) 99 07/20/20 17:00 100.4 102 29 120/80 (93) 07/20/20 16:49 106 34 45 07/20/20 16:00 45 07/20/20 16:00 50 07/20/20 16:00 96 24 113/80 (91) 99 07/20/20 16:00 Mechanical Ventilator Mechanical Ventilator 07/20/20 16:00 94 07/20/20 15:00 100 28 122/80 (94) 98 07/20/20 14:45 99 33 45 07/20/20 14:00 102 24 116/72 (87) 100 07/20/20 13:00 103 33 126/80 (95) 100 Intake and Output 07/20/20 07/21/20 19:00 07:00 Intake Total 720 ml 865 ml Output Total 1481 ml 540 ml Balance -761 ml 325 ml Free Water 100 ml 60 ml IV Total 380 ml 805 ml Tube Feeding 120 ml Other 120 ml Output Urine Total 1180 ml 540 ml Stool Total 1 ml Emesis 300 ml # Bowel Movements 1 General Appearance: no acute distress HEENT: normocephalic, status post trach Respiratory: chest wall non-tender Cardiovascular: normal peripheral pulses Abdomen: normal bowel sounds Microbiology Date/Time Source Procedure Growth Status 07/19/20 22:00 Urine,Clean Catch Urine Culture - Preliminary Gram Negative Bacillus 1 Gram Negative Bacillus 2 Resulted Laboratory Tests 07/21/20 03:36: White Blood Count 12.9H, Red Blood Count 3.15L, Hemoglobin 8.8L, Hematocrit 28.9L, Mean Corpuscular Volume 92, Mean Corpuscular Hemoglobin 28.0, Mean Corpuscular Hemoglobin Concent 30.5L, Red Cell Distribution Width 17.0H, Platelet Count 364, Mean Platelet Volume 7.8, Neutrophils (%) (Auto) 65.9, Lymphocytes (%) (Auto) 23.9, Monocytes (%) (Auto) 6.0, Eosinophils (%) (Auto) 3.6H, Basophils (%) (Auto) 0.5, Sodium Level 138, Potassium Level 3.8, Chloride Level 96L, Carbon Dioxide Level 35H, Anion Gap 7, Blood Urea Nitrogen 14, Creatinine 0.6, Estimat Glomerular Filtration Rate > 60, Glucose Level 130H, Calcium Level 10.3H Current Medications Medications (Trade) Dose Ordered Sig/Zelda Route PRN Reason Start Time Stop Time Status Last Admin Dose Admin Acetaminophen (Tylenol) 650 mg Q4H PRN NG Temp >100.5 06/29/20 10:15 07/29/20 10:14 07/20/20 18:12 Acetaminophen (Tylenol) 650 mg Q6H PRN NG Mild Pain (Pain Scale 1-3) 06/29/20 10:15 07/29/20 10:14 07/20/20 20:42 Cefepime HCl 2 gm/ Dextrose 55 ml @ 110 mls/hr EVERY 12 HOURS IVPB 07/19/20 11:30 07/26/20 11:29 07/21/20 09:26 Chlorhexidine Gluconate (Inna-Hex 2%) 1 applic DAILY@2000 TOPIC 07/20/20 20:00 10/18/20 19:59 07/20/20 20:00 Dextrose (Dextrose 50%) 25 ml Q30M PRN IV Hypoglycemia 06/05/20 10:45 09/03/20 10:44 Dextrose (Dextrose 50%) 50 ml Q30M PRN IV Hypoglycemia 06/05/20 10:45 09/03/20 10:44 Dextrose/Sodium Chloride 1,000 ml @ 75 mls/hr [id number] IV 07/20/20 12:30 08/19/20 12:29 07/21/20 02:00 Enoxaparin Sodium (Lovenox) 110 mg EVERY 12 HOURS SUBQ 07/17/20 21:00 10/15/20 20:59 07/21/20 09:25 Furosemide (Lasix) 40 mg DAILY IV 06/22/20 09:00 07/22/20 08:59 07/21/20 09:23 Guaifenesin/ Codeine Phosphate (Robitussin with codeine) 5 ml Q6H PRN NG For Cough 07/14/20 14:15 08/13/20 14:14 07/18/20 21:44 Heparin Sodium/ Sodium Chloride (Heparin 1000 units/500ml Premix) 1,000 unit ONCE PRN IV PICC LINE 07/20/20 10:15 07/22/20 10:14 Lansoprazole (Prevacid) 30 mg DAILY GT 07/18/20 09:00 08/09/20 08:59 07/21/20 09:24 Lidocaine HCl (Xylocaine 1% 30ml) 30 ml ONCE PRN INJ PICC LINE 07/20/20 10:15 07/22/20 10:14 Midodrine (Pro-Amatine) 10 mg Q8HR GT 06/30/20 14:00 09/12/20 13:59 07/21/20 06:20 Potassium Chloride (K-Dur) 40 meq TWICE A DAY GT 07/17/20 12:15 10/15/20 12:14 07/21/20 09:24 Quetiapine Fumarate (SEROqueL) 50 mg Q12HR GT 07/16/20 13:30 08/30/20 13:29 07/21/20 09:23 Vitamin D (Vitamin D) 5,000 unit DAILY GT 06/28/20 09:00 07/28/20 08:59 07/21/20 09:23 Assessment/Plan Assessment/Plan 1. COVID-19 pneumonia -Intubated 05/28/20 - We will continue broad-spectrum antibiotics. -s/p solumedrol, Rocephin -Continue PEEP 6 ->7 ->5 - Peak airway pressures better - FiO2 100% -> 90 ->80->60 ->40 ->80 ->100 ->70 ->60 -> 50 ->45 ->40 ->50%; PEEP 7 ->5 -will continue OGT feeding 2. Hyponatremia -Per primary MD 3. Elevated inflammatory markers - has high D dimer; On Lovenox 4. Decreased PEEP S/p trach Reported cuff leak per RN/RT Discussed trach change with surgery Hold off for now... however noted loss of volumes on vent and high FiO2 requirements Off IV fluids Begin dc planning to subacute; will need to wean down O2 further prior to t ransfer On low dose Levophed; will attempt to wean off Will wean off IV sedation; started Seroquel Needs PEG; planned for Wednesday July 22, 2020 The care of this patient was discussed with my supervising physician Time spent for this encounter was approximately 31 minutes Vamshi Garcia Jul 21, 2020 12:51
--- NOTE | 2020-07-21 13:29 | Cardiac Electrophysiology PN ---
Assessment/Plan Assessment/Plan 1. Respiratory failure due to COVID-19 pneumonia. On tracheostomy and is on trach collar. Echo EF 60% 2. Right lower extremity DVT. Follow up by Hematology. May need IVC filter placement. 3. Hypotension, on midodrine 10 mg 3 times daily. On Lasix 40 IV daily 4. Dysphagia. PEG rescheduled for Wednesday TOAN RN Subjective Subjective In ICU off the Vent on Trach Collar 50% Fio2 in SR. No events PEG rescheduled for Wednesday. Off pressors Objective Last 24 Hour Vital Signs Date Time Temp Pulse Resp B/P (MAP) Pulse Ox O2 Delivery O2 Flow Rate FiO2 07/21/20 13:00 99 29 138/92 (107) 100 07/21/20 12:00 Trach Collar Mechanical Ventilator 07/21/20 12:00 50 07/21/20 12:00 108 07/21/20 12:00 98.9 108 16 138/84 (102) 90 07/21/20 11:02 90 17 137/88 (104) 100 07/21/20 10:30 50 07/21/20 10:00 90 33 131/86 (101) 100 07/21/20 09:02 85 25 128/79 (95) 100 07/21/20 08:25 101 29 50 07/21/20 08:01 50 07/21/20 08:00 98.8 89 27 129/85 (100) 100 07/21/20 08:00 92 07/21/20 08:00 Mechanical Ventilator Mechanical Ventilator 07/21/20 08:00 45 07/21/20 07:24 92 28 50 07/21/20 07:00 93 22 131/84 (100) 100 07/21/20 06:30 95 30 07/21/20 06:00 97 33 132/80 (97) 100 07/21/20 05:00 98.9 100 29 142/85 (104) 99 07/21/20 04:00 99 26 124/82 (96) 100 07/21/20 04:00 45 07/21/20 04:00 Mechanical Ventilator Mechanical Ventilator 07/21/20 04:00 100 07/21/20 03:33 99 31 50 07/21/20 03:00 99 27 128/74 (92) 99 07/21/20 02:00 90 29 104/63 (77) 100 07/21/20 01:00 88 26 99/65 (76) 100 07/21/20 00:00 99.7 81 20 106/68 (81) 100 07/21/20 00:00 45 07/21/20 00:00 Mechanical Ventilator Mechanical Ventilator 07/21/20 00:00 81 07/20/20 23:07 104 28 50 07/20/20 23:00 103 25 125/85 (98) 100 07/20/20 22:00 89 24 111/75 (87) 100 07/20/20 21:00 98 25 120/77 (91) 98 07/20/20 20:00 99.9 99 30 132/85 (101) 100 07/20/20 20:00 45 07/20/20 20:00 96 07/20/20 20:00 Mechanical Ventilator Mechanical Ventilator 07/20/20 19:30 97 28 137/97 (110) 100 07/20/20 19:10 104 33 70 07/20/20 19:00 109 30 125/91 (102) 100 07/20/20 18:42 100.0 07/20/20 18:03 105 33 130/85 (100) 99 07/20/20 17:00 100.4 102 29 120/80 (93) 07/20/20 16:49 106 34 45 07/20/20 16:00 45 07/20/20 16:00 50 07/20/20 16:00 96 24 113/80 (91) 99 07/20/20 16:00 Mechanical Ventilator Mechanical Ventilator 07/20/20 16:00 94 07/20/20 15:00 100 28 122/80 (94) 98 07/20/20 14:45 99 33 45 07/20/20 14:00 102 24 116/72 (87) 100 Intake and Output 07/20/20 07/21/20 19:00 07:00 Intake Total 720 ml 865 ml Output Total 1481 ml 540 ml Balance -761 ml 325 ml Free Water 100 ml 60 ml IV Total 380 ml 805 ml Tube Feeding 120 ml Other 120 ml Output Urine Total 1180 ml 540 ml Stool Total 1 ml Emesis 300 ml # Bowel Movements 1 Laboratory Tests Test 07/21/20 03:36 07/21/20 05:26 White Blood Count 12.9 K/UL (4.8-10.8) H Red Blood Count 3.15 M/UL (4.20-5.40) L Hemoglobin 8.8 G/DL (12.0-16.0) L Hematocrit 28.9 % (37.0-47.0) L Mean Corpuscular Volume 92 FL (80-99) Mean Corpuscular Hemoglobin 28.0 PG (27.0-31.0) Mean Corpuscular Hemoglobin Concent 30.5 G/DL (32.0-36.0) L Red Cell Distribution Width 17.0 % (11.6-14.8) H Platelet Count 364 K/UL (150-450) Mean Platelet Volume 7.8 FL (6.5-10.1) Neutrophils (%) (Auto) 65.9 % (45.0-75.0) Lymphocytes (%) (Auto) 23.9 % (20.0-45.0) Monocytes (%) (Auto) 6.0 % (1.0-10.0) Eosinophils (%) (Auto) 3.6 % (0.0-3.0) H Basophils (%) (Auto) 0.5 % (0.0-2.0) Sodium Level 138 MMOL/L (136-145) Potassium Level 3.8 MMOL/L (3.5-5.1) Chloride Level 96 MMOL/L (98-107) L Carbon Dioxide Level 35 MMOL/L (21-32) H Anion Gap 7 mmol/L (5-15) Blood Urea Nitrogen 14 mg/dL (7-18) Creatinine 0.6 MG/DL (0.55-1.30) Estimat Glomerular Filtration Rate > 60 mL/min (>60) Glucose Level 130 MG/DL (74-106) H Calcium Level 10.3 MG/DL (8.5-10.1) H POC Whole Blood Glucose Pending Microbiology Date/Time Source Procedure Growth Status 07/19/20 22:00 Urine,Clean Catch Urine Culture - Preliminary Gram Negative Bacillus 1 Gram Negative Bacillus 2 Resulted Objective HEAD AND NECK: Shows status post tracheostomy. NGT in place LUNGS: Coarse rhonchi. CARDIOVASCULAR: Regular S1 and S2 with no gallop. ABDOMEN: Soft. EXTREMITIES: 1+ pitting edema. Hill Burger MD Jul 21, 2020 13:29
--- NOTE | 2020-07-21 13:40 | NUR ---
NURSE NOTES: Pt starting to desaturates on the 80's,R.T. placed pt back to vent with settings,AC15,TV400,Fio2 50%,Peep5.Pt o2 sat at this time went up to 100%.
--- NOTE | 2020-07-21 15:00 | NUR ---
NURSE NOTES: Oral care done,tracheal secretions suctioned PRN.pulled up turned and repositioned.
--- NOTE | 2020-07-21 18:00 | NUR ---
NURSE NOTES: Bed bath given ,pt with BM to small amount of formed brown stools.,kept dry and clean.
--- NOTE | 2020-07-21 18:51 | NUR ---
NURSE HAND-OFF REPORT: Latest Vital Signs: Temperature 99.2 , Pulse 115 , B/P 150 /90 , Respiratory Rate 40 , O2 SAT 100 , Mechanical Ventilator, O2 Flow Rate 50.0 . Vital Sign Comment: unstable EKG Rhythm: Sinus Rhythm Rhythm change?: N MD Notified?: N - MD Response: Latest Meyers Fall Score: 70 Fall Risk: High Risk Safety Measures: Call light Within Reach, Bed Alarm Zone 1, Side Rails Side Rails x2, Bed position Low and Locked. Fall Precautions: Yellow Socks Door Sign Patient Fall Education Report given to .Elidia Woods RN.
--- NOTE | 2020-07-21 18:55 | General Progress Note ---
Subjective Allergies: Coded Allergies: No Known Allergies (Unverified , 05/28/20) Subjective above noted d/w RN dilated SB noted on KUB orders given for NGT --> LIS Objective Last 24 Hour Vital Signs Date Time Temp Pulse Resp B/P (MAP) Pulse Ox O2 Delivery O2 Flow Rate FiO2 07/21/20 18:02 115 40 150/90 (110) 100 07/21/20 17:50 134 35 50 07/21/20 17:00 111 42 151/91 (111) 100 07/21/20 16:01 99.2 07/21/20 16:00 118 07/21/20 16:00 Trach Collar Mechanical Ventilator 07/21/20 16:00 116 35 152/82 (105) 100 07/21/20 15:34 129 31 50 07/21/20 15:00 126 40 182/111 (134) 100 07/21/20 14:05 108 56 170/97 (121) 83 07/21/20 13:40 100 07/21/20 13:14 96 37 50 07/21/20 13:00 99 29 138/92 (107) 100 07/21/20 12:00 Trach Collar Mechanical Ventilator 07/21/20 12:00 50 07/21/20 12:00 108 07/21/20 12:00 98.9 108 16 138/84 (102) 90 07/21/20 11:20 50.0 07/21/20 11:02 90 17 137/88 (104) 100 07/21/20 10:30 50 07/21/20 10:00 90 33 131/86 (101) 100 07/21/20 09:02 85 25 128/79 (95) 100 07/21/20 08:25 101 29 50 07/21/20 08:01 50 07/21/20 08:00 98.8 89 27 129/85 (100) 100 07/21/20 08:00 92 07/21/20 08:00 Mechanical Ventilator Mechanical Ventilator 07/21/20 08:00 45 07/21/20 07:24 92 28 50 07/21/20 07:00 93 22 131/84 (100) 100 07/21/20 06:30 95 30 07/21/20 06:00 97 33 132/80 (97) 100 07/21/20 05:00 98.9 100 29 142/85 (104) 99 07/21/20 04:00 99 26 124/82 (96) 100 07/21/20 04:00 45 07/21/20 04:00 Mechanical Ventilator Mechanical Ventilator 07/21/20 04:00 100 07/21/20 03:33 99 31 50 07/21/20 03:00 99 27 128/74 (92) 99 07/21/20 02:00 90 29 104/63 (77) 100 07/21/20 01:00 88 26 99/65 (76) 100 07/21/20 00:00 99.7 81 20 106/68 (81) 100 07/21/20 00:00 45 07/21/20 00:00 Mechanical Ventilator Mechanical Ventilator 07/21/20 00:00 81 07/20/20 23:07 104 28 50 07/20/20 23:00 103 25 125/85 (98) 100 07/20/20 22:00 89 24 111/75 (87) 100 07/20/20 21:00 98 25 120/77 (91) 98 07/20/20 20:00 99.9 99 30 132/85 (101) 100 07/20/20 20:00 45 07/20/20 20:00 96 07/20/20 20:00 Mechanical Ventilator Mechanical Ventilator 07/20/20 19:30 97 28 137/97 (110) 100 07/20/20 19:10 104 33 70 07/20/20 19:00 109 30 125/91 (102) 100 Intake and Output 07/20/20 07/21/20 19:00 07:00 Intake Total 720 ml 940 ml Output Total 1481 ml 540 ml Balance -761 ml 400 ml Free Water 100 ml 60 ml IV Total 380 ml 880 ml Tube Feeding 120 ml Other 120 ml Output Urine Total 1180 ml 540 ml Stool Total 1 ml Emesis 300 ml # Bowel Movements 1 Laboratory Tests 07/21/20 03:36: White Blood Count 12.9H, Red Blood Count 3.15L, Hemoglobin 8.8L, Hematocrit 28.9L, Mean Corpuscular Volume 92, Mean Corpuscular Hemoglobin 28.0, Mean Corpuscular Hemoglobin Concent 30.5L, Red Cell Distribution Width 17.0H, Platelet Count 364, Mean Platelet Volume 7.8, Neutrophils (%) (Auto) 65.9, Lymphocytes (%) (Auto) 23.9, Monocytes (%) (Auto) 6.0, Eosinophils (%) (Auto) 3.6H, Basophils (%) (Auto) 0.5, Sodium Level 138, Potassium Level 3.8, Chloride Level 96L, Carbon Dioxide Level 35H, Anion Gap 7, Blood Urea Nitrogen 14, Creatinine 0.6, Estimat Glomerular Filtration Rate > 60, Glucose Level 130H, Calcium Level 10.3H 07/21/20 05:26: POC Whole Blood Glucose [Pending] Height (Feet): 5 Height (Inches): 5.00 Weight (Pounds): 223 Objective Obese woman NCAT (+) trach Coarse BS RR abd obese, soft no edema Assessment/Plan Status: unchanged Assessment/Plan: Assessment - h/o COVID infection, now negative - resp failure, s/p trach - ileus vs SBO - dysphagia - DM Recommendations - hold TF --> NGT to LIS - Surgical f/u - IVF - Elevate HOB - Check KUB - PPI - add Robert Flynn MD Jul 21, 2020 18:55
--- NOTE | 2020-07-21 19:15 | NUR ---
Received report from RAKEL Kwan and assumed care of patient.
--- NOTE | 2020-07-21 20:30 | NUR ---
Assessment complete. Speaking [place] to patient. This RN not completely fluent in [place] but got through assessment in Ug[place]an accordingly. Patient stable. Afebrile. Will continue to monitor.
--- NOTE | 2020-07-21 21:30 | NUR ---
Pt speaking in [place] and this RN unable to fully understand. Another RN speaks fluently and asked her to assist in understanding patients needs. Pt was under the understanding that she was transferring out of ICU. Explained that patient here due to respiratory needs and potential bowel obstruction requiring her NGT to LIS. Patient stated she feels disrespected by hospital staff nurses. Clarifies that it is not this RN or the RN assisting in interpretation of needs. Patient is tearful and says she is sad. Apologized that patient feels this way and that we would pass along to returned goods repairer tonight and in am. Educated patient on restraints and orientation. Pt slightly confused, but mostly oriented. pt requested restraints be left on due to waking up and not knowing if she would reach for anything would like them as a reminder. Requested lights be off and that it is difficult to sleep due to lights in ICU hallways by nurses station. Requested to sleep this evening and not to awaken for bathing if she is asleep or to move her as she is tired. Educated patient button buttonhole marker light and how to use appropriately. Patient unable to push the call light at this time as it takes some strength. Left call light in patients hand so that she could practice grasping and ungrasping, pushing the button, and fine motor movements. Educated patient to try and move fingers and make fist then release and repeat for strength exercises. Also educated to rotate ankles and flex calves for exercise when in bed. Patient denies any pain. Will continue to monitor and pass along to day RN for potential psych consult to assess for depression and to understand better patient needs and opportunities for success in her mental state. Pt asked if anyone has called to check on her as well. States she has a daughter. Again, is tearful. Will continue to monitor.
[2020-07-21] MEDS: Dyna-Hex 2% Top Sol 2oz TOPIC SCH (21:54)
--- NOTE | 2020-07-21 22:20 | NUR ---
Pt repositioned in the bed. Oral care provided to patient to assist with moisturization. Pt requesting to not be repositioned through the night due to lack of sleep. Asking for staff to try and limit coming into her room so that she can rest. Explained skin prevalence and reasons behind frequent turning and repositioning. Pt says when we move her she coughs a lot and it is hard to relax and rest. Will bundle care through night to limit trips into room. VSS, will continue to monitor.
[2020-07-22] VITALS (57 sets, daily range): BP systolic 52–174; BP diastolic 27–104
--- NOTE | 2020-07-22 00:15 | NUR ---
Midnight assessment complete. Pt c/o alarms (lots of excess alarming this evening due to a critical patient). Explained we are trying to silence the alarms as best we can and apologized for noise. Pt understanding, just states she is very tired. Refuses full bath this evening, so cleansed lines and catheter with CHG only. Patient remains stable. Will continue to monitor.
--- NOTE | 2020-07-22 02:30 | NUR ---
Pt VS remain stable. Patient appears to be sleeping so did not awaken patient per her request. Will continue to monitor.
--- NOTE | 2020-07-22 04:30 | NUR ---
Patient remains stable. 0400 exam completed with no changes. Will continue to monitor the patient.
[2020-07-22] MEDS: D5 1/2NS 1,000 ML IV SCH ×2 (05:00→17:05)
[2020-07-22] MEDS: Midodrine 10mg tab GT SCH ×3 (05:19→20:37)
[2020-07-22 05:25] LABS: BASOPHILS % (AUTO) 0.8 % (0.0-2.0); EOSINOPHILS % (AUTO) 5.3 % (0.0-3.0); HEMATOCRIT 37.7 % (37.0-47.0); HEMOGLOBIN 11.3 G/DL (12.0-16.0); LYMPHOCYTES % (AUTO) 19.8 % (20.0-45.0); MEAN CORPUSCULAR VOLUME 93 FL (80-99); MONOCYTES % (AUTO) 5.6 % (1.0-10.0); NEUTROPHILS % (AUTO) 68.5 % (45.0-75.0); PLATELET COUNT 420 K/UL (150-450); RED BLOOD COUNT 4.08 M/UL (4.20-5.40); RED CELL DISTRIBUTION WIDTH 16.8 % (11.6-14.8); WHITE BLOOD COUNT 16.2 K/UL (4.8-10.8)
[2020-07-22 05:29] LABS: INR 1.1 (0.9-1.1)
[2020-07-22 05:59] LABS: ALANINE AMINOTRANSFERASE 24 U/L (12-78); ALBUMIN 3.6 G/DL (3.4-5.0); ALBUMIN/GLOBULIN RATIO 0.6 (1.0-2.7); ALKALINE PHOSPHATASE 99 U/L (46-116); ANION GAP 8 mmol/L (5-15); ASPARTATE AMINO TRANSFERASE 42 U/L (15-37); BILIRUBIN,TOTAL 0.5 MG/DL (0.2-1.0); BLOOD UREA NITROGEN 15 mg/dL (7-18); CARBON DIOXIDE 33 MMOL/L (21-32); CHLORIDE 94 MMOL/L (98-107); CREATININE 0.6 MG/DL (0.55-1.30); POTASSIUM 4.5 MMOL/L (3.5-5.1); SODIUM 135 MMOL/L (136-145)
--- NOTE | 2020-07-22 06:00 | NUR ---
Midodrine held due to elevated blood pressure of 170's systolic. Patient sleeping and in NAD. VSS, afebrile. Will continue to monitor.
--- NOTE | 2020-07-22 06:31 | Hematology/Onc Progress Note ---
Assessment/Plan Assessment/Plan # Deep vein thrombosis of the right calf --> given onoing anemia and low plts --> consider ivc if bleeding--once stable, needs it placed --> once stable, for radiology and ivc filter placement # Thrombocytopenia is due to infection/underlying covid19+++ --> ABX ceftriaxone -->zosyn-->off --> on steriods likely cause of initial wbc --> per pulm --> plt 107->156-->192-->205 --> smear reviewed # Leukocytosis due to Pneumonia due to COVID-19 virus --> per pulm rx -> sp remdesivir --> wbc 11.9-->11-->21 # Anemia due to chronic disease --> hgb goal is >7 --> transfuse prn --> ferritin is >1000 --> hold off on iron --> 10-->9.8->9-->8-->8.2-->9.4-->8.1-->9.9-->9.6-->9.5-->9.6-->8.6-->11 # Elevated ddimer due to covid19++ --> duplex legs is negative --> underlying covid rx # Hypoxia -> due to covid19 --> steriods as needed # Hypoxemia --> rx same as above # Respiratory failure --> on vent/trach --> per pulm # Diabetes mellitus out of control --> hgb a1c goal <7 # Poor prognosis # Dvt ppx ivc filter once more stable Appreciate consultation and bowen RN Subjective Allergies: Coded Allergies: No Known Allergies (Unverified , 05/28/20) All Systems: reviewed and negative except above Subjective 06/10 nv, on vent, with ogt, on fentanyl and versed, plt stable 06/11 nv, vent adjusted is on ogt, meds reviewed 06/12 nv, vent, meds noted, labs noted, no bleeding, hgb 10.4 06/13 nv, is on vent, meds reviewed, no bleeding, cbc reviewed 06/14 nv, on vent, tachy, labs reviewed, gross hematuria, febrile overnight, abx 06/17 nv, on vent, labs noted, no major changes, feeling better overnight 06/18 nv, meds reviewed, labs noted, no major events, hgb 8.6 06/19 nv, remains intubated, with fluids, labs reviewed, meds noted 06/20 nv, intubated remains on restraints, meds noted as well, as labs 06/21 nv, remains on vent, on restraints, meds reviewed, labs noted 06/22: covering Dr. Del Cid no acute events 06/23 sedated, on vent, nv, intubated, meds reviewed, versed 06/24 nv, on vent, no night sweats, no bleeding, remains in icu 06/25 nv, on vent, icu, meds noted, no bleeding, comfortable 06/26 nv, on versed, icu, weaning parameters, labs noted 06/27 nv, overnight fighting vent, as per pulm fentanyl on board 06/28 nv, on vent, labs reviewed, as per pulm, meds noted 06/30 nv, icu, labs pending, is on fentanyl, versed, no new changes 07/01 nv, icu, is on vent, labs pending, no new changes per rn 07/02 nv, icu is on vent, labs noted, hgb is stable 07/03 nv, icu, is on vent, potential trrach when stable, cbc reviewed 07/04 icu, nv, labs are noted, stable for trach today bowen Lizama 07/05 icu, nv, on vent, with ng and picc in place, labs noted, s/p trach 07/07 icu, nv, on tv, no bleeding, labs noted, meds reviewed 07/08 icu, nv, on tv, labs reviewed, meds noted, no bleeding 07/09 icu, nv, meds noted, no bleeding, blood transfusion was completed 07/10 icu, nv, labs ntoed, no bleeding, hgb improved, hgb 7.8 07/11 icu, nv, labs reviewed, hgb is improved, for ivcf if stabilizes 07/12 icu, nv, labs reviewed, meds noted, no bleeding, remains on vent 07/13 icu, on vent, nv, no bleeding, labs reviewed, no major events, bowen rn 07/14 icu, on vent, nv, tolerating ngt feeds, bowen Rn, meds reviewed 07/15 icu, on vent, trach, tolerating ngt, meds noted, no bleeding 07/16 icu, vent, labs are noted, with trach, is stable, hgb 9.2 07/17 icu, had a bm overnight, remains on vent with trach, labs noted 07/18 icu, nv, labs are ntoed, no bleeding, on trach, on levophed 07/20 nc, icu, meds noted, v/t, no bleeding, labs noted, on versed 07/21 nv, trach/vent, tube feeds on hold, labs reviewed, icu 07/22 nv, icu, bp remains high, on v/t, labs noted, no bleeding Objective Objective Current Medications Medications (Trade) Dose Ordered Sig/Zelda Route PRN Reason Start Time Stop Time Status Last Admin Dose Admin Acetaminophen (Tylenol) 650 mg Q4H PRN NG Temp >100.5 06/29/20 10:15 07/29/20 10:14 07/20/20 18:12 Acetaminophen (Tylenol) 650 mg Q6H PRN NG Mild Pain (Pain Scale 1-3) 06/29/20 10:15 07/29/20 10:14 07/20/20 20:42 Cefepime HCl 2 gm/ Dextrose 55 ml @ 110 mls/hr EVERY 12 HOURS IVPB 07/19/20 11:30 07/26/20 11:29 07/21/20 21:55 Chlorhexidine Gluconate (Inna-Hex 2%) 1 applic DAILY@2000 TOPIC 07/20/20 20:00 10/18/20 19:59 07/21/20 21:54 Dextrose (Dextrose 50%) 25 ml Q30M PRN IV Hypoglycemia 06/05/20 10:45 09/03/20 10:44 Dextrose (Dextrose 50%) 50 ml Q30M PRN IV Hypoglycemia 06/05/20 10:45 09/03/20 10:44 Dextrose/Sodium Chloride 1,000 ml @ 75 mls/hr [id number] IV 07/20/20 12:30 08/19/20 12:29 07/22/20 05:00 Enoxaparin Sodium (Lovenox) 110 mg EVERY 12 HOURS SUBQ 07/17/20 21:00 10/15/20 20:59 07/21/20 21:00 Furosemide (Lasix) 40 mg DAILY IV 06/22/20 09:00 07/22/20 08:59 07/21/20 09:23 Guaifenesin/ Codeine Phosphate (Robitussin with codeine) 5 ml Q6H PRN NG For Cough 07/14/20 14:15 08/13/20 14:14 07/18/20 21:44 Heparin Sodium/ Sodium Chloride (Heparin 1000 units/500ml Premix) 1,000 unit ONCE PRN IV PICC LINE 07/20/20 10:15 07/22/20 10:14 Lansoprazole (Prevacid) 30 mg DAILY GT 07/18/20 09:00 08/09/20 08:59 07/21/20 09:24 Lidocaine HCl (Xylocaine 1% 30ml) 30 ml ONCE PRN INJ PICC LINE 07/20/20 10:15 07/22/20 10:14 Midodrine (Pro-Amatine) 10 mg Q8HR GT 06/30/20 14:00 09/12/20 13:59 07/21/20 22:20 Potassium Chloride (K-Dur) 40 meq TWICE A DAY GT 07/17/20 12:15 10/15/20 12:14 07/21/20 17:19 Quetiapine Fumarate (SEROqueL) 50 mg Q12HR GT 07/16/20 13:30 08/30/20 13:29 07/21/20 21:55 Vitamin D (Vitamin D) 5,000 unit DAILY GT 06/28/20 09:00 07/28/20 08:59 07/21/20 09:23 Last 24 Hour Vital Signs Date Time Temp Pulse Resp B/P (MAP) Pulse Ox O2 Delivery O2 Flow Rate FiO2 07/22/20 06:00 107 30 174/85 (114) 100 07/22/20 05:30 108 27 151/77 (101) 100 07/22/20 05:16 105 28 50 07/22/20 05:00 106 29 172/104 (126) 100 07/22/20 04:30 103 30 132/83 (99) 100 07/22/20 04:00 99 26 160/80 (106) 100 07/22/20 04:00 Mechanical Ventilator Mechanical Ventilator Mechanical Ventilator 07/22/20 04:00 102 07/22/20 04:00 50 07/22/20 03:30 102 35 138/79 (98) 100 07/22/20 03:12 99 38 50 07/22/20 03:00 98.6 97 32 140/81 (100) 100 07/22/20 02:30 95 35 135/86 (102) 100 07/22/20 02:00 94 35 153/81 (105) 100 07/22/20 01:30 92 32 133/79 (97) 100 07/22/20 01:11 84 32 50 07/22/20 01:00 95 28 125/78 (94) 100 07/22/20 00:30 92 30 125/73 (90) 100 07/22/20 00:00 101 07/22/20 00:00 50 07/22/20 00:00 98.3 96 33 133/76 (95) 100 07/22/20 00:00 Mechanical Ventilator Mechanical Ventilator Mechanical Ventilator 07/21/20 23:30 93 33 131/79 (96) 100 07/21/20 23:12 95 39 50 07/21/20 23:00 95 32 126/88 (101) 100 07/21/20 22:30 97 29 117/72 (87) 100 07/21/20 22:00 99.0 94 17 122/81 (95) 100 07/21/20 21:30 96 31 138/86 (103) 100 07/21/20 21:06 103 40 50 07/21/20 21:00 92 36 124/87 (99) 100 07/21/20 20:30 101 38 129/82 (98) 100 07/21/20 20:00 Mechanical Ventilator Mechanical Ventilator Mechanical Ventilator 07/21/20 20:00 100 38 133/83 (100) 100 07/21/20 20:00 50 07/21/20 20:00 96 07/21/20 19:30 100 39 126/71 (89) 100 07/21/20 19:16 104 43 50 07/21/20 19:00 97 39 133/74 (93) 100 07/21/20 18:02 115 40 150/90 (110) 100 07/21/20 17:50 134 35 50 07/21/20 17:00 111 42 151/91 (111) 100 07/21/20 16:01 99.2 07/21/20 16:00 118 07/21/20 16:00 Trach Collar Mechanical Ventilator 07/21/20 16:00 116 35 152/82 (105) 100 07/21/20 15:34 129 31 50 07/21/20 15:00 126 40 182/111 (134) 100 07/21/20 14:05 108 56 170/97 (121) 83 07/21/20 13:40 100 07/21/20 13:14 96 37 50 07/21/20 13:00 99 29 138/92 (107) 100 07/21/20 12:00 Trach Collar Mechanical Ventilator 07/21/20 12:00 50 07/21/20 12:00 108 07/21/20 12:00 98.9 108 16 138/84 (102) 90 07/21/20 11:20 50.0 07/21/20 11:02 90 17 137/88 (104) 100 07/21/20 10:30 50 07/21/20 10:00 90 33 131/86 (101) 100 07/21/20 09:02 85 25 128/79 (95) 100 07/21/20 08:25 101 29 50 07/21/20 08:01 50 07/21/20 08:00 98.8 89 27 129/85 (100) 100 07/21/20 08:00 92 07/21/20 08:00 Mechanical Ventilator Mechanical Ventilator 07/21/20 08:00 45 07/21/20 07:24 92 28 50 07/21/20 07:00 93 22 131/84 (100) 100 07/21/20 06:30 95 30 07/21/20 06:00 97 33 132/80 (97) 100 07/21/20 05:00 98.9 100 29 142/85 (104) 99 07/21/20 04:00 99 26 124/82 (96) 100 07/21/20 04:00 45 07/21/20 04:00 Mechanical Ventilator Mechanical Ventilator 07/21/20 04:00 100 07/21/20 03:33 99 31 50 07/21/20 03:00 99 27 128/74 (92) 99 07/21/20 02:00 90 29 104/63 (77) 100 07/21/20 01:00 88 26 99/65 (76) 100 07/21/20 00:00 99.7 81 20 106/68 (81) 100 07/21/20 00:00 45 07/21/20 00:00 Mechanical Ventilator Mechanical Ventilator 07/21/20 00:00 81 07/20/20 23:07 104 28 50 07/20/20 23:00 103 25 125/85 (98) 100 07/20/20 22:00 89 24 111/75 (87) 100 07/20/20 21:00 98 25 120/77 (91) 98 07/20/20 20:00 99.9 99 30 132/85 (101) 100 07/20/20 20:00 45 07/20/20 20:00 96 07/20/20 20:00 Mechanical Ventilator Mechanical Ventilator 07/20/20 19:30 97 28 137/97 (110) 100 07/20/20 19:10 104 33 70 07/20/20 19:00 109 30 125/91 (102) 100 07/20/20 18:42 100.0 07/20/20 18:03 105 33 130/85 (100) 99 07/20/20 17:00 100.4 102 29 120/80 (93) 07/20/20 16:49 106 34 45 07/20/20 16:00 45 07/20/20 16:00 50 07/20/20 16:00 96 24 113/80 (91) 99 07/20/20 16:00 Mechanical Ventilator Mechanical Ventilator 07/20/20 16:00 94 07/20/20 15:00 100 28 122/80 (94) 98 07/20/20 14:45 99 33 45 07/20/20 14:00 102 24 116/72 (87) 100 07/20/20 13:00 103 33 126/80 (95) 100 07/20/20 12:04 99.0 99 27 137/88 (104) 98 07/20/20 12:04 Mechanical Ventilator Mechanical Ventilator 07/20/20 12:03 50 07/20/20 12:00 104 07/20/20 11:00 103 35 50 07/20/20 11:00 105 29 142/90 (107) 98 07/20/20 10:00 118 23 127/59 (81) 98 07/20/20 09:00 110 24 127/91 (103) 97 07/20/20 09:00 104 34 50 07/20/20 08:00 107 07/20/20 08:00 106 31 123/90 (101) 97 07/20/20 08:00 99.0 07/20/20 08:00 50 07/20/20 08:00 Mechanical Ventilator Mechanical Ventilator 07/20/20 07:11 112 35 50 07/20/20 07:00 104 31 131/84 (100) 99 Intake and Output 07/21/20 07/22/20 19:00 07:00 Intake Total 825 ml 825 ml Output Total 1851 ml 340 ml Balance -1026 ml 485 ml IV Total 825 ml 825 ml Output Urine Total 1550 ml 340 ml Stool Total 1 ml Gastric Drainage Total 300 ml Labs Test 07/19/20 18:35 07/19/20 22:00 07/19/20 23:38 07/20/20 03:30 POC Whole Blood Glucose 110 MG/DL (74-106) 149 MG/DL (74-106) Urine Color Brown Urine Appearance Turbid Urine pH 5 (4.5-8.0) Urine Specific [place] 1.025 (1.005-1.035) Urine Protein 3+ (NEGATIVE) Urine Glucose (UA) Negative (NEGATIVE) Urine Ketones 2+ (NEGATIVE) Urine Blood 5+ (NEGATIVE) Urine Nitrite Negative (NEGATIVE) Urine Bilirubin Negative (NEGATIVE) Urine Urobilinogen 1 MG/DL (0.0-1.0) Urine Leukocyte Esterase 3+ (NEGATIVE) Urine RBC Tntc /HPF (0 - 2) Urine WBC Tntc /HPF (0 - 2) Urine Squamous Epithelial Cells None /LPF (NONE/OCC) Urine Amorphous Sediment Moderate /LPF (NONE) Urine Bacteria Many /HPF (NONE) White Blood Count 15.0 K/UL (4.8-10.8) Red Blood Count 3.05 M/UL (4.20-5.40) Hemoglobin 8.5 G/DL (12.0-16.0) Hematocrit 27.5 % (37.0-47.0) Mean Corpuscular Volume 90 FL (80-99) Mean Corpuscular Hemoglobin 28.0 PG (27.0-31.0) Mean Corpuscular Hemoglobin Concent 30.9 G/DL (32.0-36.0) Red Cell Distribution Width 17.1 % (11.6-14.8) Platelet Count 327 K/UL (150-450) Mean Platelet Volume 7.6 FL (6.5-10.1) Neutrophils (%) (Auto) 67.3 % (45.0-75.0) Lymphocytes (%) (Auto) 19.6 % (20.0-45.0) Monocytes (%) (Auto) 5.6 % (1.0-10.0) Eosinophils (%) (Auto) 6.7 % (0.0-3.0) Basophils (%) (Auto) 0.7 % (0.0-2.0) Sodium Level 138 MMOL/L (136-145) Potassium Level 3.4 MMOL/L (3.5-5.1) Chloride Level 96 MMOL/L (98-107) Carbon Dioxide Level 37 MMOL/L (21-32) Blood Urea Nitrogen 18 mg/dL (7-18) Creatinine 0.6 MG/DL (0.55-1.30) Estimat Glomerular Filtration Rate > 60 mL/min (>60) Glucose Level 140 MG/DL (74-106) Calcium Level 10.0 MG/DL (8.5-10.1) Test 07/21/20 03:36 07/21/20 05:26 07/22/20 04:02 White Blood Count 12.9 K/UL (4.8-10.8) 16.2 K/UL (4.8-10.8) Red Blood Count 3.15 M/UL (4.20-5.40) 4.08 M/UL (4.20-5.40) Hemoglobin 8.8 G/DL (12.0-16.0) 11.3 G/DL (12.0-16.0) Hematocrit 28.9 % (37.0-47.0) 37.7 % (37.0-47.0) Mean Corpuscular Volume 92 FL (80-99) 93 FL (80-99) Mean Corpuscular Hemoglobin 28.0 PG (27.0-31.0) 27.7 PG (27.0-31.0) Mean Corpuscular Hemoglobin Concent 30.5 G/DL (32.0-36.0) 30.0 G/DL (32.0-36.0) Red Cell Distribution Width 17.0 % (11.6-14.8) 16.8 % (11.6-14.8) Platelet Count 364 K/UL (150-450) 420 K/UL (150-450) Mean Platelet Volume 7.8 FL (6.5-10.1) 7.7 FL (6.5-10.1) Neutrophils (%) (Auto) 65.9 % (45.0-75.0) 68.5 % (45.0-75.0) Lymphocytes (%) (Auto) 23.9 % (20.0-45.0) 19.8 % (20.0-45.0) Monocytes (%) (Auto) 6.0 % (1.0-10.0) 5.6 % (1.0-10.0) Eosinophils (%) (Auto) 3.6 % (0.0-3.0) 5.3 % (0.0-3.0) Basophils (%) (Auto) 0.5 % (0.0-2.0) 0.8 % (0.0-2.0) Sodium Level 138 MMOL/L (136-145) 135 MMOL/L (136-145) Potassium Level 3.8 MMOL/L (3.5-5.1) 4.5 MMOL/L (3.5-5.1) Chloride Level 96 MMOL/L (98-107) 94 MMOL/L (98-107) Carbon Dioxide Level 35 MMOL/L (21-32) 33 MMOL/L (21-32) Anion Gap 7 mmol/L (5-15) 8 mmol/L (5-15) Blood Urea Nitrogen 14 mg/dL (7-18) 15 mg/dL (7-18) Creatinine 0.6 MG/DL (0.55-1.30) 0.6 MG/DL (0.55-1.30) Estimat Glomerular Filtration Rate > 60 mL/min (>60) > 60 mL/min (>60) Glucose Level 130 MG/DL (74-106) 133 MG/DL (74-106) Calcium Level 10.3 MG/DL (8.5-10.1) 11.0 MG/DL (8.5-10.1) Prothrombin Time 12.2 SEC (9.30-11.50) Prothromb Time International Ratio 1.1 (0.9-1.1) Total Bilirubin 0.5 MG/DL (0.2-1.0) Aspartate Amino Transf (AST/SGOT) 42 U/L (15-37) Alanine Aminotransferase (ALT/SGPT) 24 U/L (12-78) Alkaline Phosphatase 99 U/L (46-116) C-Reactive Protein, Quantitative 8.6 mg/dL (0.00-0.90) Total Protein 9.8 G/DL (6.4-8.2) Albumin 3.6 G/DL (3.4-5.0) Globulin 6.2 g/dL Albumin/Globulin Ratio 0.6 (1.0-2.7) Amylase Level 73 U/L (25-115) Lipase 244 U/L (73-393) Height (Feet): 5 Height (Inches): 5.00 Weight (Pounds): 223 Objective GeNL: nv HEENT: ngt++ Pulm: vent/trach++ CV: rrr Abd: soft, nt, nd Ext: no cce Myron Condon MD Jul 22, 2020 06:31
--- NOTE | 2020-07-22 07:29 | NUR ---
Report given to RAKEL Reyes who assumed care of patient.
--- NOTE | 2020-07-22 08:58 | General Progress Note ---
Subjective Constitutional: Reports: weakness Allergies: Coded Allergies: No Known Allergies (Unverified , 05/28/20) All Systems: reviewed and negative except above Subjective trach vent ng in icu Objective Last 24 Hour Vital Signs Date Time Temp Pulse Resp B/P (MAP) Pulse Ox O2 Delivery O2 Flow Rate FiO2 07/22/20 08:00 107 07/22/20 07:30 89 28 173/81 (111) 98 07/22/20 07:25 102 26 65 07/22/20 07:00 109 28 149/90 (109) 100 07/22/20 06:36 103 33 07/22/20 06:00 107 30 174/85 (114) 100 07/22/20 05:30 108 27 151/77 (101) 100 07/22/20 05:16 105 28 50 07/22/20 05:00 106 29 172/104 (126) 100 07/22/20 04:30 103 30 132/83 (99) 100 07/22/20 04:00 99 26 160/80 (106) 100 07/22/20 04:00 Mechanical Ventilator Mechanical Ventilator Mechanical Ventilator 07/22/20 04:00 102 07/22/20 04:00 50 07/22/20 03:30 102 35 138/79 (98) 100 07/22/20 03:12 99 38 50 07/22/20 03:00 98.6 97 32 140/81 (100) 100 07/22/20 02:30 95 35 135/86 (102) 100 07/22/20 02:00 94 35 153/81 (105) 100 07/22/20 01:30 92 32 133/79 (97) 100 07/22/20 01:11 84 32 50 07/22/20 01:00 95 28 125/78 (94) 100 07/22/20 00:30 92 30 125/73 (90) 100 07/22/20 00:00 101 07/22/20 00:00 50 07/22/20 00:00 98.3 96 33 133/76 (95) 100 07/22/20 00:00 Mechanical Ventilator Mechanical Ventilator Mechanical Ventilator 07/21/20 23:30 93 33 131/79 (96) 100 07/21/20 23:12 95 39 50 07/21/20 23:00 95 32 126/88 (101) 100 07/21/20 22:30 97 29 117/72 (87) 100 07/21/20 22:00 99.0 94 17 122/81 (95) 100 07/21/20 21:30 96 31 138/86 (103) 100 07/21/20 21:06 103 40 50 07/21/20 21:00 92 36 124/87 (99) 100 07/21/20 20:30 101 38 129/82 (98) 100 07/21/20 20:00 Mechanical Ventilator Mechanical Ventilator Mechanical Ventilator 07/21/20 20:00 100 38 133/83 (100) 100 07/21/20 20:00 50 07/21/20 20:00 96 07/21/20 19:30 100 39 126/71 (89) 100 07/21/20 19:16 104 43 50 07/21/20 19:00 97 39 133/74 (93) 100 07/21/20 18:02 115 40 150/90 (110) 100 07/21/20 17:50 134 35 50 07/21/20 17:00 111 42 151/91 (111) 100 07/21/20 16:01 99.2 07/21/20 16:00 118 07/21/20 16:00 Trach Collar Mechanical Ventilator 07/21/20 16:00 116 35 152/82 (105) 100 07/21/20 15:34 129 31 50 07/21/20 15:00 126 40 182/111 (134) 100 07/21/20 14:05 108 56 170/97 (121) 83 07/21/20 13:40 100 07/21/20 13:14 96 37 50 07/21/20 13:00 99 29 138/92 (107) 100 07/21/20 12:00 Trach Collar Mechanical Ventilator 07/21/20 12:00 50 07/21/20 12:00 108 07/21/20 12:00 98.9 108 16 138/84 (102) 90 07/21/20 11:20 50.0 07/21/20 11:02 90 17 137/88 (104) 100 07/21/20 10:30 50 07/21/20 10:00 90 33 131/86 (101) 100 07/21/20 09:02 85 25 128/79 (95) 100 Intake and Output 07/21/20 07/22/20 19:00 07:00 Intake Total 825 ml 825 ml Output Total 1851 ml 340 ml Balance -1026 ml 485 ml IV Total 825 ml 825 ml Output Urine Total 1550 ml 340 ml Stool Total 1 ml Gastric Drainage Total 300 ml Laboratory Tests 07/22/20 01:35: POC Whole Blood Glucose [Pending] 07/22/20 04:02: White Blood Count 16.2H, Red Blood Count 4.08L, Hemoglobin 11.3L, Hematocrit 37.7#, Mean Corpuscular Volume 93, Mean Corpuscular Hemoglobin 27.7, Mean Corpuscular Hemoglobin Concent 30.0L, Red Cell Distribution Width 16.8H, P latelet Count 420, Mean Platelet Volume 7.7, Neutrophils (%) (Auto) 68.5, Lymphocytes (%) (Auto) 19.8L, Monocytes (%) (Auto) 5.6, Eosinophils (%) (Auto) 5.3H, Basophils (%) (Auto) 0.8, Erythrocyte Sedimentation Rate 20, Prothrombin Time 12.2H, Prothromb Time International Ratio 1.1, Sodium Level 135L, Potassium Level 4.5, Chloride Level 94L, Carbon Dioxide Level 33H, Anion Gap 8, Blood Urea Nitrogen 15, Creatinine 0.6, Estimat Glomerular Filtration Rate > 60, Glucose Level 133H, Calcium Level 11.0H, Total Bilirubin 0.5, Aspartate Amino Transf (AST/SGOT) 42H, Alanine Aminotransferase (ALT/SGPT) 24, Alkaline Phosphatase 99, C-Reactive Protein, Quantitative 8.6H, Total Protein 9.8H, Albumin 3.6, Globulin 6.2, Albumin/Globulin Ratio 0.6L, Amylase Level 73, Lipase 244 Height (Feet): 5 Height (Inches): 5.00 Weight (Pounds): 223 General Appearance: lethargic EENT: normal ENT inspection Neck: normal alignment Cardiovascular: normal peripheral pulses, normal rate, regular rhythm Respiratory/Chest: chest wall non-tender, lungs clear, normal breath sounds Abdomen: normal bowel sounds, non tender, soft Extremities: normal inspection Edema: no edema noted Arm (L), no edema noted Arm (R), no edema noted Leg (L), no edema noted Leg (R), no edema noted Pedal (L), no edema noted Pedal (R), no e drake noted Generalized Neurologic: motor weakness Skin: normal pigmentation, warm/dry Assessment/Plan Problem List: (1) Hypoxia ICD Codes: R09.02 - Hypoxemia SNOMED: 097735380 (2) Respiratory failure ICD Codes: J96.90 - Respiratory failure, unspecified, unspecified whether with hypoxia or hypercapnia SNOMED: 470550853 (3) Respiratory distress ICD Codes: R06.03 - Acute respiratory distress; J12.82 - Pneumonia due to coronavirus disease 2019 SNOMED: 701016461 (4) Pneumonia due to COVID-19 virus ICD Codes: U07.1 - COVID-19; J12.82 - Pneumonia due to coronavirus disease 2019 SNOMED: 196057689266862781 Status: unchanged Assessment/Plan: vent abx id pulm f/u cbc bmp am Tank Del Cid DO Jul 22, 2020 08:58
--- NOTE | 2020-07-22 09:38 | NUR ---
RADIOLOGY DEPT. ABDOMEN X-RAY DONE.-P.DYE
--- NOTE | 2020-07-22 09:43 | NUR ---
RD ASSESSMENT & RECOMMENDATIONS SEE CARE ACTIVITY FOR COMPLETE ASSESSMENT DAILY ESTIMATED NEEDS: Needs based on Critical care, obesity 11-14kcal/kg actual body wt (140kg) kcals/kg 5458-3504 total kcals 1.5-2.0g prot/kg IBW (64.5kg) g protein/kg 96-129 g total protein 25-30ml/kg abw (83kg) mL/kg 0860-2011 total fluid mLs NUTRITION DIAGNOSIS: Swallowing difficulty R/T respiratory failure as evidenced by pt now s/p trach placement (07/04), TF held (07/20), w/ NGT to LIS. CURRENT TF:NPO- w/ NGT to LIS (as of 07/20) ENTERAL NUTRITION RECOMMENDATIONS: Glucerna 1.2 @ 55ml/hr x 24 hrs + Prosource 1pkt BID to provide 1320ml, 1584kcal, 79g+22g prot, 1063ml free water * As medically appropriate, initiate Glucerna 1.2 @ 25ml/hr x 6hrs * Advance 10ml q 4-6 hrs as tolerated to goal rate. * Add Prosource 1pkt BID (additional 22g prot) to meet protein needs * HOB over 30 degrees/ water flush per MD ADDITIONAL RECOMMENDATIONS: * Calibrated bedscale wt * Monitor Propofol rate, need for TF adjustment-> now off * Monitor BGs closely : now improved, on NISS only * Monitor NPO status- TF held since 07/20, monitor need for PN w/ NGT to LIS at this time . .
[2020-07-22] MEDS: Vitamin D 1000 units Tab GT SCH (10:05)
[2020-07-22] MEDS: Enoxaparin 120 mg inj SUBQ SCH ×2 (10:06→20:38)
[2020-07-22] MEDS: Cefepime HCl 2 GM in D5W 55 ML IVPB SCH (10:06)
[2020-07-22 10:10] LABS: PHOSPHORUS 4.7 MG/DL (2.5-4.9)
--- NOTE | 2020-07-22 10:52 | Infectious Diseases Prog Note ---
Assessment/Plan Assessment/Plan antibiotics : cefepime A 1. covid 19 pneumonia s/p remdesivir s/p solumedrol 2. respiratory failure s/p tracheostomy 3. serratia pneumonia s/p rx 4. leucocytosis increased 5. enterobacter UTI 6. SBO P 1. start meropenem 2. d/c cefepime 3. will follow up cultures Subjective ROS Limited/Unobtainable: Yes Allergies: Coded Allergies: No Known Allergies (Unverified , 05/28/20) Objective Last 24 Hour Vital Signs Date Time Temp Pulse Resp B/P (MAP) Pulse Ox O2 Delivery O2 Flow Rate FiO2 07/22/20 09:00 114 28 65 07/22/20 08:00 107 07/22/20 08:00 50 07/22/20 08:00 110 29 144/89 (107) 99 07/22/20 07:30 89 28 173/81 (111) 98 07/22/20 07:25 102 26 65 07/22/20 07:00 109 28 149/90 (109) 100 07/22/20 06:36 103 33 07/22/20 06:00 107 30 174/85 (114) 100 07/22/20 05:30 108 27 151/77 (101) 100 07/22/20 05:16 105 28 50 07/22/20 05:00 106 29 172/104 (126) 100 07/22/20 04:30 103 30 132/83 (99) 100 07/22/20 04:00 99 26 160/80 (106) 100 07/22/20 04:00 Mechanical Ventilator Mechanical Ventilator Mechanical Ventilator 07/22/20 04:00 102 07/22/20 04:00 50 07/22/20 03:30 102 35 138/79 (98) 100 07/22/20 03:12 99 38 50 07/22/20 03:00 98.6 97 32 140/81 (100) 100 07/22/20 02:30 95 35 135/86 (102) 100 07/22/20 02:00 94 35 153/81 (105) 100 07/22/20 01:30 92 32 133/79 (97) 100 07/22/20 01:11 84 32 50 07/22/20 01:00 95 28 125/78 (94) 100 07/22/20 00:30 92 30 125/73 (90) 100 07/22/20 00:00 101 07/22/20 00:00 50 07/22/20 00:00 98.3 96 33 133/76 (95) 100 07/22/20 00:00 Mechanical Ventilator Mechanical Ventilator Mechanical Ventilator 07/21/20 23:30 93 33 131/79 (96) 100 07/21/20 23:12 95 39 50 07/21/20 23:00 95 32 126/88 (101) 100 07/21/20 22:30 97 29 117/72 (87) 100 07/21/20 22:00 99.0 94 17 122/81 (95) 100 07/21/20 21:30 96 31 138/86 (103) 100 07/21/20 21:06 103 40 50 07/21/20 21:00 92 36 124/87 (99) 100 07/21/20 20:30 101 38 129/82 (98) 100 07/21/20 20:00 Mechanical Ventilator Mechanical Ventilator Mechanical Ventilator 07/21/20 20:00 100 38 133/83 (100) 100 07/21/20 20:00 50 07/21/20 20:00 96 07/21/20 19:30 100 39 126/71 (89) 100 07/21/20 19:16 104 43 50 07/21/20 19:00 97 39 133/74 (93) 100 07/21/20 18:02 115 40 150/90 (110) 100 07/21/20 17:50 134 35 50 07/21/20 17:00 111 42 151/91 (111) 100 07/21/20 16:01 99.2 07/21/20 16:00 118 07/21/20 16:00 Trach Collar Mechanical Ventilator 07/21/20 16:00 116 35 152/82 (105) 100 07/21/20 15:34 129 31 50 07/21/20 15:00 126 40 182/111 (134) 100 07/21/20 14:05 108 56 170/97 (121) 83 07/21/20 13:40 100 07/21/20 13:14 96 37 50 07/21/20 13:00 99 29 138/92 (107) 100 07/21/20 12:00 Trach Collar Mechanical Ventilator 07/21/20 12:00 50 07/21/20 12:00 108 07/21/20 12:00 98.9 108 16 138/84 (102) 90 07/21/20 11:20 50.0 07/21/20 11:02 90 17 137/88 (104) 100 Height (Feet): 5 Height (Inches): 5.00 Weight (Pounds): 223 Microbiology Date/Time Source Procedure Growth Status 07/19/20 22:00 Urine,Clean Catch Urine Culture - Preliminary Enterobacter Aerogenes Resulted Laboratory Tests Test 07/22/20 01:35 07/22/20 04:02 POC Whole Blood Glucose Pending White Blood Count 16.2 K/UL (4.8-10.8) H Red Blood Count 4.08 M/UL (4.20-5.40) L Hemoglobin 11.3 G/DL (12.0-16.0) L Hematocrit 37.7 % (37.0-47.0) # Mean Corpuscular Volume 93 FL (80-99) Mean Corpuscular Hemoglobin 27.7 PG (27.0-31.0) Mean Corpuscular Hemoglobin Concent 30.0 G/DL (32.0-36.0) L Red Cell Distribution Width 16.8 % (11.6-14.8) H Platelet Count 420 K/UL (150-450) Mean Platelet Volume 7.7 FL (6.5-10.1) Neutrophils (%) (Auto) 68.5 % (45.0-75.0) Lymphocytes (%) (Auto) 19.8 % (20.0-45.0) L Monocytes (%) (Auto) 5.6 % (1.0-10.0) Eosinophils (%) (Auto) 5.3 % (0.0-3.0) H Basophils (%) (Auto) 0.8 % (0.0-2.0) Erythrocyte Sedimentation Rate 20 MM/HR (0-20) Prothrombin Time 12.2 SEC (9.30-11.50) H Prothromb Time International Ratio 1.1 (0.9-1.1) Sodium Level 135 MMOL/L (136-145) L Potassium Level 4.5 MMOL/L (3.5-5.1) Chloride Level 94 MMOL/L (98-107) L Carbon Dioxide Level 33 MMOL/L (21-32) H Anion Gap 8 mmol/L (5-15) Blood Urea Nitrogen 15 mg/dL (7-18) Creatinine 0.6 MG/DL (0.55-1.30) Estimat Glomerular Filtration Rate > 60 mL/min (>60) Glucose Level 133 MG/DL (74-106) H Calcium Level 11.0 MG/DL (8.5-10.1) H Phosphorus Level 4.7 MG/DL (2.5-4.9) Magnesium Level 2.0 MG/DL (1.8-2.4) Total Bilirubin 0.5 MG/DL (0.2-1.0) Aspartate Amino Transf (AST/SGOT) 42 U/L (15-37) H Alanine Aminotransferase (ALT/SGPT) 24 U/L (12-78) Alkaline Phosphatase 99 U/L (46-116) C-Reactive Protein, Quantitative 8.6 mg/dL (0.00-0.90) H Total Protein 9.8 G/DL (6.4-8.2) H Albumin 3.6 G/DL (3.4-5.0) Globulin 6.2 g/dL Albumin/Globulin Ratio 0.6 (1.0-2.7) L Amylase Level 73 U/L (25-115) Lipase 244 U/L (73-393) Current Medications Medications (Trade) Dose Ordered Sig/Zelda Route PRN Reason Start Time Stop Time Status Last Admin Dose Admin Acetaminophen (Tylenol) 650 mg Q4H PRN NG Temp >100.5 06/29/20 10:15 07/29/20 10:14 07/20/20 18:12 Acetaminophen (Tylenol) 650 mg Q6H PRN NG Mild Pain (Pain Scale 1-3) 06/29/20 10:15 07/29/20 10:14 07/20/20 20:42 Cefepime HCl 2 gm/ Dextrose 55 ml @ 110 mls/hr EVERY 12 HOURS IVPB 07/19/20 11:30 07/26/20 11:29 07/22/20 10:06 Chlorhexidine Gluconate (Inna-Hex 2%) 1 applic DAILY@2000 TOPIC 07/20/20 20:00 10/18/20 19:59 07/21/20 21:54 Dextrose (Dextrose 50%) 25 ml Q30M PRN IV Hypoglycemia 06/05/20 10:45 09/03/20 10:44 Dextrose (Dextrose 50%) 50 ml Q30M PRN IV Hypoglycemia 06/05/20 10:45 09/03/20 10:44 Dextrose/Sodium Chloride 1,000 ml @ 75 mls/hr [id number] IV 07/20/20 12:30 08/19/20 12:29 07/22/20 05:00 Enoxaparin Sodium (Lovenox) 110 mg EVERY 12 HOURS SUBQ 07/17/20 21:00 10/15/20 20:59 07/22/20 10:06 Guaifenesin/ Codeine Phosphate (Robitussin with codeine) 5 ml Q6H PRN NG For Cough 07/14/20 14:15 08/13/20 14:14 07/18/20 21:44 Lansoprazole (Prevacid) 30 mg DAILY GT 07/18/20 09:00 08/09/20 08:59 07/22/20 10:05 Midodrine (Pro-Amatine) 10 mg Q8HR GT 06/30/20 14:00 09/12/20 13:59 07/21/20 22:20 Potassium Chloride (K-Dur) 40 meq TWICE A DAY GT 07/17/20 12:15 10/15/20 12:14 07/21/20 17:19 Quetiapine Fumarate (SEROqueL) 50 mg Q12HR GT 07/16/20 13:30 08/30/20 13:29 07/22/20 10:04 Vitamin D (Vitamin D) 5,000 unit DAILY GT 06/28/20 09:00 07/28/20 08:59 07/22/20 10:05 Fili Mcelroy MD Jul 22, 2020 10:52
--- NOTE | 2020-07-22 11:42 | Pulmonology Progress Note ---
Subjective ROS Limited/Unobtainable: Yes Interval Events: S/p tracheostomy Constitutional: Reports: fever, other - resolved HEENT: Repors: no symptoms Respiratory: Reports: no symptoms Cardiovascular: Reports: no symptoms Gastrointestinal/Abdominal: Reports: vomiting Genitourinary: Reports: no symptoms Allergies: Coded Allergies: No Known Allergies (Unverified , 05/28/20) All Systems: reviewed and negative except above Objective Last 24 Hour Vital Signs Date Time Temp Pulse Resp B/P (MAP) Pulse Ox O2 Delivery O2 Flow Rate FiO2 07/22/20 11:00 116 36 121/85 (97) 100 07/22/20 10:00 106 41 144/84 (104) 99 07/22/20 09:00 114 28 65 07/22/20 09:00 97.0 118 30 156/82 (106) 100 07/22/20 08:00 107 07/22/20 08:00 Mechanical Ventilator Mechanical Ventilator Mechanical Ventilator 07/22/20 08:00 50 07/22/20 08:00 110 29 144/89 (107) 99 07/22/20 07:30 89 28 173/81 (111) 98 07/22/20 07:25 102 26 65 07/22/20 07:00 109 28 149/90 (109) 100 07/22/20 06:36 103 33 07/22/20 06:00 107 30 174/85 (114) 100 07/22/20 05:30 108 27 151/77 (101) 100 07/22/20 05:16 105 28 50 07/22/20 05:00 106 29 172/104 (126) 100 07/22/20 04:30 103 30 132/83 (99) 100 07/22/20 04:00 99 26 160/80 (106) 100 07/22/20 04:00 Mechanical Ventilator Mechanical Ventilator Mechanical Ventilator 07/22/20 04:00 102 07/22/20 04:00 50 07/22/20 03:30 102 35 138/79 (98) 100 07/22/20 03:12 99 38 50 07/22/20 03:00 98.6 97 32 140/81 (100) 100 07/22/20 02:30 95 35 135/86 (102) 100 07/22/20 02:00 94 35 153/81 (105) 100 07/22/20 01:30 92 32 133/79 (97) 100 07/22/20 01:11 84 32 50 07/22/20 01:00 95 28 125/78 (94) 100 07/22/20 00:30 92 30 125/73 (90) 100 07/22/20 00:00 101 07/22/20 00:00 50 07/22/20 00:00 98.3 96 33 133/76 (95) 100 07/22/20 00:00 Mechanical Ventilator Mechanical Ventilator Mechanical Ventilator 07/21/20 23:30 93 33 131/79 (96) 100 07/21/20 23:12 95 39 50 07/21/20 23:00 95 32 126/88 (101) 100 07/21/20 22:30 97 29 117/72 (87) 100 07/21/20 22:00 99.0 94 17 122/81 (95) 100 07/21/20 21:30 96 31 138/86 (103) 100 07/21/20 21:06 103 40 50 07/21/20 21:00 92 36 124/87 (99) 100 07/21/20 20:30 101 38 129/82 (98) 100 07/21/20 20:00 Mechanical Ventilator Mechanical Ventilator Mechanical Ventilator 07/21/20 20:00 100 38 133/83 (100) 100 07/21/20 20:00 50 07/21/20 20:00 96 07/21/20 19:30 100 39 126/71 (89) 100 07/21/20 19:16 104 43 50 07/21/20 19:00 97 39 133/74 (93) 100 07/21/20 18:02 115 40 150/90 (110) 100 07/21/20 17:50 134 35 50 07/21/20 17:00 111 42 151/91 (111) 100 07/21/20 16:01 99.2 07/21/20 16:00 118 07/21/20 16:00 Trach Collar Mechanical Ventilator 07/21/20 16:00 116 35 152/82 (105) 100 07/21/20 15:34 129 31 50 07/21/20 15:00 126 40 182/111 (134) 100 07/21/20 14:05 108 56 170/97 (121) 83 07/21/20 13:40 100 07/21/20 13:14 96 37 50 07/21/20 13:00 99 29 138/92 (107) 100 07/21/20 12:00 Trach Collar Mechanical Ventilator 07/21/20 12:00 50 07/21/20 12:00 108 07/21/20 12:00 98.9 108 16 138/84 (102) 90 Intake and Output 0 07/21/20 07/22/20 19:00 07:00 Intake Total 825 ml 825 ml Output Total 1851 ml 340 ml Balance -1026 ml 485 ml IV Total 825 ml 825 ml Output Urine Total 1550 ml 340 ml Stool Total 1 ml Gastric Drainage Total 300 ml General Appearance: no acute distress HEENT: normocephalic, status post trach Respiratory: chest wall non-tender Cardiovascular: normal peripheral pulses Abdomen: normal bowel sounds Microbiology Date/Time Source Procedure Growth Status 07/19/20 22:00 Urine,Clean Catch Urine Culture - Preliminary Enterobacter Aerogenes Resulted Laboratory Tests 07/22/20 01:35: POC Whole Blood Glucose [Pending] 07/22/20 04:02: White Blood Count 16.2H, Red Blood Count 4.08L, Hemoglobin 11.3L, Hematocrit 37.7#, Mean Corpuscular Volume 93, Mean Corpuscular Hemoglobin 27.7, Mean Corpuscular Hemoglobin Concent 30.0L, Red Cell Distribution Width 16.8H, P latelet Count 420, Mean Platelet Volume 7.7, Neutrophils (%) (Auto) 68.5, Lymphocytes (%) (Auto) 19.8L, Monocytes (%) (Auto) 5.6, Eosinophils (%) (Auto) 5.3H, Basophils (%) (Auto) 0.8, Erythrocyte Sedimentation Rate 20, Prothrombin Time 12.2H, Prothromb Time International Ratio 1.1, Sodium Level 135L, Potassium Level 4.5, Chloride Level 94L, Carbon Dioxide Level 33H, Anion Gap 8, Blood Urea Nitrogen 15, Creatinine 0.6, Estimat Glomerular Filtration Rate > 60, Glucose Level 133H, Calcium Level 11.0H, Phosphorus Level 4.7, Magnesium Level 2.0, Total Bilirubin 0.5, Aspartate Amino Transf (AST/SGOT) 42H, Alanine Aminotransferase (ALT/SGPT) 24, Alkaline Phosphatase 99, C-Reactive Protein, José ntitative 8.6H, Total Protein 9.8H, Albumin 3.6, Globulin 6.2, Albumin/Globulin Ratio 0.6L, Amylase Level 73, Lipase 244 Current Medications Medications (Trade) Dose Ordered Sig/Zelda Route PRN Reason Start Time Stop Time Status Last Admin Dose Admin Acetaminophen (Tylenol) 650 mg Q4H PRN NG Temp >100.5 06/29/20 10:15 07/29/20 10:14 07/20/20 18:12 Acetaminophen (Tylenol) 650 mg Q6H PRN NG Mild Pain (Pain Scale 1-3) 06/29/20 10:15 07/29/20 10:14 07/20/20 20:42 Chlorhexidine Gluconate (Inna-Hex 2%) 1 applic DAILY@2000 TOPIC 07/20/20 20:00 10/18/20 19:59 07/21/20 21:54 Dextrose (Dextrose 50%) 25 ml Q30M PRN IV Hypoglycemia 06/05/20 10:45 09/03/20 10:44 Dextrose (Dextrose 50%) 50 ml Q30M PRN IV Hypoglycemia 06/05/20 10:45 09/03/20 10:44 Dextrose/Sodium Chloride 1,000 ml @ 75 mls/hr [id number] IV 07/20/20 12:30 08/19/20 12:29 07/22/20 05:00 Enoxaparin Sodium (Lovenox) 110 mg EVERY 12 HOURS SUBQ 07/17/20 21:00 10/15/20 20:59 07/22/20 10:06 Guaifenesin/ Codeine Phosphate (Robitussin with codeine) 5 ml Q6H PRN NG For Cough 07/14/20 14:15 08/13/20 14:14 07/18/20 21:44 Lansoprazole (Prevacid) 30 mg DAILY GT 07/18/20 09:00 08/09/20 08:59 07/22/20 10:05 Meropenem 1 gm/ Sodium Chloride 55 ml @ 110 mls/hr Q8H IVPB 07/22/20 12:00 07/27/20 11:59 Midodrine (Pro-Amatine) 10 mg Q8HR GT 06/30/20 14:00 09/12/20 13:59 07/21/20 22:20 Quetiapine Fumarate (SEROqueL) 50 mg Q12HR GT 07/16/20 13:30 08/30/20 13:29 07/22/20 10:04 Vitamin D (Vitamin D) 5,000 unit DAILY GT 06/28/20 09:00 07/28/20 08:59 07/22/20 10:05 Assessment/Plan Assessment/Plan 1. COVID-19 pneumonia -Intubated 05/28/20 - We will continue broad-spectrum antibiotics. -s/p solumedrol, Rocephin -Continue PEEP 6 ->7 ->5 - Peak airway pressures better - FiO2 100% -> 90 ->80->60 ->40 ->80 ->100 ->70 ->60 -> 50 ->45 ->40 ->50%; PEEP 7 ->5 -will continue OGT feeding 2. Hyponatremia -Per primary MD 3. Elevated inflammatory markers - has high D dimer; On Lovenox 4. DVT of the right calf - once stable, consider IVC filter per heme 5. Decreased PEEP S/p trach Reported cuff leak per RN/RT Discussed trach change with surgery Hold off for now... however noted loss of volumes on vent and high FiO2 requirements Off IV fluids Begin dc planning to subacute; will need to wean down O2 further prior to transfer On low dose Levophed; will attempt to wean off Will wean off IV sedation; started Seroquel Needs PEG; PEG held given new onset SBO vs ileus The care of this patient was discussed with my supervising physician Time spent for this encounter was approximately 31 minutes Vamshi Garcia Jul 22, 2020 11:42
--- NOTE | 2020-07-22 11:45 | NUR ---
RESPIRATORY NOTES Sybil TOLLIVER at bedside to exchange trach from [facility] [id number] to [facility] [id number].
[2020-07-22] MEDS: Acetaminophen 650mg/20.3ml NG PRN (11:56)
--- NOTE | 2020-07-22 12:03 | Nephrology Progress Note ---
Assessment/Plan Problem List: (1) DEVENDRA (acute kidney injury) (2) Morbid obesity (3) Diabetes mellitus out of control (4) Pneumonia due to COVID-19 virus (5) Respiratory failure Assessment Acute renal failure Obstructive uropathy, clogged [place] Respiratory failure COVID-19 pneumonia Morbid obesity Plan July 22: Status quo. Labs reviewed. Serum calcium elevated. Vitamin D discontinued. Pamidronate 60 mg IV given. Continue to monitor calcium and phosphorus. Patient due for PEG today. July 21: Status quo. Awake responsive. Labs reviewed. Medication list reviewed. Stable from renal standpoint of view. Due for PEG tomorrow. Continue her current management. July 20: Status quo. PEG procedure deferred to July 22. Patient remains full code. Abnormal electrolytes addressed. FiO2 50% unchanged. Continue per consultants. July 19: Status quo. Due for PEG insertion today. Remains full code. Trach and vent. Low magnesium addressed. Continue per consultants. FiO2 50%. July 18: Status quo. Labs reviewed. Low potassium addressed. Continue per consultants. Remains full code. July 17: Remains full code. Trach to vent. FiO2 40%. Labs reviewed. Low potassium addressed. Continue per consultants. July 16: Status quo. FiO2 45%. Discussed with RN. Continue to taper her mind altering medications and sedatives. Stable from renal standpoint of view. Abnormal electrolytes addressed. July 15: Full code. FiO2 50%. Intubated on ventilator. No labs drawn today. Continue per consultants. July 14: Status quo. FiO2 50%. Labs reviewed. Renal parameters stable. Continue per current treatment plan and consultants. Medication list reviewed. July 13: FiO2 60% unchanged. Labs reviewed. Renal parameters stable. Medication list reviewed. Continue per consultants. July 12: Full code. Labs reviewed. Normal electrolytes addressed. Continue per pulmonary. Medication list reviewed. July 11: Remains full code. On ventilator. FiO2 down to 65%. Renal parameters stable. Low magnesium addressed. Continue her current management. July 10: Full code. On ventilator. FiO2 70%. Hemoglobin mid sevens. Renal parameters stable. Continue per consultants. July 09: Labs reviewed. Renal parameters stable. FiO2 80% unchanged. Continue per pulmonary. July 08: Labs reviewed. Renal parameters and electrolytes stable. ABG suggestive of high PCO2. At this time patient is on FiO2 of 80%. Continue per pulmonary. Continue to monitor renal parameters. July 07: No CHEM panel drawn today. More potassium given. Continue to monitor renal parameters. Continue per consultants. Discussed with RAKEL Veras. July 06: Low potassium addressed. Albumin bolus for low BP given. Patient remains full code. Continue to monitor electrolytes and renal parameters. Continue per consultants. Hemoglobin low today, transfusion per entertainment lawyer. July 05: Trach to vent. FiO2 80%. Renal parameters stable. PCO2 remains high at 44. Continue to monitor renal parameters. July 04: Patient now trach. Full code. Labs reviewed. Renal parameters stable. Low magnesium addressed. July 03: Intubated. Full code. Labs reviewed. Abnormal electrolytes addressed. Continue per consultants. Overall status unchanged. July 02: Remains intubated. Remains full code. Remains on FiO2 of 70%. Labs reviewed. Abnormal electrolytes addressed. Continue per pulmonary. July 01: Remains on 70% FiO2. Full code. Intubated on ventilator. Retaining CO2. Discussed with RN. Will do ABG today. Albumin bolus given. 1 dose of Diamox given. June 30: Status quo. Labs reviewed. Abnormal electrolytes addressed. Remains full code. Remains on ventilator. Magnesium sulfate 4 gram IVPB given. June 29: Full code. Intubated on ventilator. Labs reviewed. Stable from renal standpoint of view. Continue per consultants. June 28: Remains full code. Remains intubated on ventilator. Labs reviewed. Vitamin D supplement ordered. Continue to monitor renal parameters. Continue per consultants. June 27: Remains full code. Intubated on ventilator. Labs reviewed. Abnormal electrolyte addressed. Continue to monitor renal parameters and electrolytes. Continue per consultants. June 26: Labs reviewed. Remains full code. Remains intubated. Back on NGT feeding. Continue to monitor renal parameters. June 25: Labs reviewed. Renal parameters stable. Remains full code. Due to positional status patient could not be fed via NG tube. Starting TPN? Is being entertained. Continue per consultants. June 24: Labs reviewed. Renal parameters stable. Remains full code. Remains intubated on ventilator. Continue per consultants. June 23: Labs reviewed. Renal parameters stable. Discussed with RN. Abnormal electrolyte addressed. Remains full code. Remains on ventilator. Co ntinue per consultants. June 22: Labs reviewed. Low potassium addressed. Discussed with RAKEL Moran. Patient full code. Remains on ventilator. Continue to monitor renal parameters. June 21. Labs reviewed. Abnormal electrolyte addressed. Full code. Remains on ventilator. Medication list reviewed. Continue per pulmonary management. DC IV fluid, resume Lasix daily, check chest x-ray. June 20: Labs reviewed. Abnormal electrolytes. Patient remains full code. Continue per consultants. Noted and addressed June 19: Labs reviewed. Abnormal electrolytes noted and addressed. Remains intubated on ventilator. Remains full code. June 18: Labs reviewed. Remains intubated on ventilator. Full code. Abnormal electrolyte addressed. Continue as is. June 17: Labs reviewed. Abnormal electrolytes addressed. Patient remains full code and intubated on ventilator. Continue per consultants. Renal parameters are within normal limits. June 16: Labs reviewed. Potassium chloride replaced. Remains full code. Remains intubated on ventilator. Continue per consultants. Continue to monitor renal parameters. June 15: Labs reviewed. Serum creatinine 1. Stable from renal standpoint to view. Continue per consultants. June 14: Labs reviewed. Full code. Serum creatinine of 3.5 down to 1.4. Low potassium addressed. Continue per current treatment plan. Continue to monitor renal parameters. Midodrine started. Albumin bolus given. Previously: DC Lasix drip Increase Protonix dose Monitor renal parameters, electrolytes Per orders Subjective ROS Limited/Unobtainable: Yes Objective Objective Last 24 Hour Vital Signs Date Time Temp Pulse Resp B/P (MAP) Pulse Ox O2 Delivery O2 Flow Rate FiO2 07/22/20 11:00 116 36 121/85 (97) 100 07/22/20 10:00 106 41 144/84 (104) 99 07/22/20 09:00 114 28 65 07/22/20 09:00 97.0 118 30 156/82 (106) 100 07/22/20 08:00 107 07/22/20 08:00 Mechanical Ventilator Mechanical Ventilator Mechanical Ventilator 07/22/20 08:00 50 07/22/20 08:00 110 29 144/89 (107) 99 07/22/20 07:30 89 28 173/81 (111) 98 07/22/20 07:25 102 26 65 07/22/20 07:00 109 28 149/90 (109) 100 07/22/20 06:36 103 33 07/22/20 06:00 107 30 174/85 (114) 100 07/22/20 05:30 108 27 151/77 (101) 100 07/22/20 05:16 105 28 50 07/22/20 05:00 106 29 172/104 (126) 100 07/22/20 04:30 103 30 132/83 (99) 100 07/22/20 04:00 99 26 160/80 (106) 100 07/22/20 04:00 Mechanical Ventilator Mechanical Ventilator Mechanical Ventilator 07/22/20 04:00 102 07/22/20 04:00 50 07/22/20 03:30 102 35 138/79 (98) 100 07/22/20 03:12 99 38 50 07/22/20 03:00 98.6 97 32 140/81 (100) 100 07/22/20 02:30 95 35 135/86 (102) 100 07/22/20 02:00 94 35 153/81 (105) 100 07/22/20 01:30 92 32 133/79 (97) 100 07/22/20 01:11 84 32 50 07/22/20 01:00 95 28 125/78 (94) 100 07/22/20 00:30 92 30 125/73 (90) 100 07/22/20 00:00 101 07/22/20 00:00 50 07/22/20 00:00 98.3 96 33 133/76 (95) 100 07/22/20 00:00 Mechanical Ventilator Mechanical Ventilator Mechanical Ventilator 07/21/20 23:30 93 33 131/79 (96) 100 07/21/20 23:12 95 39 50 07/21/20 23:00 95 32 126/88 (101) 100 07/21/20 22:30 97 29 117/72 (87) 100 07/21/20 22:00 99.0 94 17 122/81 (95) 100 07/21/20 21:30 96 31 138/86 (103) 100 07/21/20 21:06 103 40 50 07/21/20 21:00 92 36 124/87 (99) 100 07/21/20 20:30 101 38 129/82 (98) 100 07/21/20 20:00 Mechanical Ventilator Mechanical Ventilator Mechanical Ventilator 07/21/20 20:00 100 38 133/83 (100) 100 07/21/20 20:00 50 07/21/20 20:00 96 07/21/20 19:30 100 39 126/71 (89) 100 07/21/20 19:16 104 43 50 07/21/20 19:00 97 39 133/74 (93) 100 07/21/20 18:02 115 40 150/90 (110) 100 07/21/20 17:50 134 35 50 07/21/20 17:00 111 42 151/91 (111) 100 07/21/20 16:01 99.2 07/21/20 16:00 118 07/21/20 16:00 Trach Collar Mechanical Ventilator 07/21/20 16:00 116 35 152/82 (105) 100 07/21/20 15:34 129 31 50 07/21/20 15:00 126 40 182/111 (134) 100 07/21/20 14:05 108 56 170/97 (121) 83 07/21/20 13:40 100 07/21/20 13:14 96 37 50 07/21/20 13:00 99 29 138/92 (107) 100 Intake and Output 07/21/20 07/22/20 19:00 07:00 Intake Total 825 ml 825 ml Output Total 1851 ml 360 ml Balance -1026 ml 465 ml IV Total 825 ml 825 ml Output Urine Total 1550 ml 360 ml Stool Total 1 ml Gastric Drainage Total 300 ml Current Medications Medications (Trade) Dose Ordered Sig/Zelda Route PRN Reason Start Time Stop Time Status Last Admin Dose Admin Acetaminophen (Tylenol) 650 mg Q4H PRN NG Temp >100.5 06/29/20 10:15 07/29/20 10:14 07/20/20 18:12 Acetaminophen (Tylenol) 650 mg Q6H PRN NG Mild Pain (Pain Scale 1-3) 06/29/20 10:15 07/29/20 10:14 07/22/20 11:56 Chlorhexidine Gluconate (Inna-Hex 2%) 1 applic DAILY@2000 TOPIC 07/20/20 20:00 10/18/20 19:59 07/21/20 21:54 Dextrose (Dextrose 50%) 25 ml Q30M PRN IV Hypoglycemia 06/05/20 10:45 09/03/20 10:44 Dextrose (Dextrose 50%) 50 ml Q30M PRN IV Hypoglycemia 06/05/20 10:45 09/03/20 10:44 Dextrose/Sodium Chloride 1,000 ml @ 75 mls/hr [id number] IV 07/20/20 12:30 08/19/20 12:29 07/22/20 05:00 Enoxaparin Sodium (Lovenox) 110 mg EVERY 12 HOURS SUBQ 07/17/20 21:00 10/15/20 20:59 07/22/20 10:06 Guaifenesin/ Codeine Phosphate (Robitussin with codeine) 5 ml Q6H PRN NG For Cough 07/14/20 14:15 08/13/20 14:14 07/18/20 21:44 Lansoprazole (Prevacid) 30 mg DAILY GT 07/18/20 09:00 08/09/20 08:59 07/22/20 10:05 Meropenem 1 gm/ Sodium Chloride 55 ml @ 110 mls/hr Q8H IVPB 07/22/20 12:00 07/27/20 11:59 Midodrine (Pro-Amatine) 10 mg Q8HR GT 06/30/20 14:00 09/12/20 13:59 07/21/20 22:20 Quetiapine Fumarate (SEROqueL) 50 mg Q12HR GT 07/16/20 13:30 08/30/20 13:29 07/22/20 10:04 Vitamin D (Vitamin D) 5,000 unit DAILY GT 06/28/20 09:00 07/28/20 08:59 07/22/20 10:05 Laboratory Tests 07/22/20 01:35: POC Whole Blood Glucose [Pending] 07/22/20 04:02: White Blood Count 16.2H, Red Blood Count 4.08L, Hemoglobin 11.3L, Hematocrit 37.7#, Mean Corpuscular Volume 93, Mean Corpuscular Hemoglobin 27.7, Mean Corpuscular Hemoglobin Concent 30.0L, Red Cell Distribution Width 16.8H, Platelet Count 420, Mean Platelet Volume 7.7, Neutrophils (%) (Auto) 68.5, Lymphocytes (%) (Auto) 19.8L, Monocytes (%) (Auto) 5.6, Eosinophils (%) (Auto) 5.3H, Basophils (%) (Auto) 0.8, Erythrocyte Sedimentation Rate 20, Prothrombin Time 12.2H, Prothromb Time International Ratio 1.1, Sodium Level 135L, Potassium Level 4.5, Chloride Level 94L, Carbon Dioxide Level 33H, Anion Gap 8, Blood Urea Nitrogen 15, Creatinine 0.6, Estimat Glomerular Filtration Rate > 60, Glucose Level 133H, Calcium Level 11.0H, Phosphorus Level 4.7, Magnesium Level 2.0, Total Bilirubin 0.5, Aspartate Amino Transf (AST/SGOT) 42H, Alanine Aminotransferase (ALT/SGPT) 24, Alkaline Phosphatase 99, C-Reactive Protein, Quantitative 8.6H, Total Protein 9.8H, Albumin 3.6, Globulin 6.2, Albumin/Globulin Ratio 0.6L, Amylase Level 73, Lipase 244 Height (Feet): 5 Height (Inches): 5.00 Weight (Pounds): 223 General Appearance: no apparent distress EENT: other - Trach to vent Cardiovascular: tachycardia Respiratory/Chest: decreased breath sounds Abdomen: distended Rigo Tyler MD Jul 22, 2020 12:03
--- NOTE | 2020-07-22 12:22 | Cardiac Electrophysiology PN ---
Assessment/Plan Assessment/Plan 1. Respiratory failure due to COVID-19 pneumonia. On tracheostomy on 65% Fio2. Trach exchanged today at bedside by Dr. Devine Echo EF 60% 2. Right lower extremity DVT. Follow up by Hematology. May need IVC filter placement. 3. Hypotension, on midodrine 10 mg 3 times daily. DC Lasix. Start Levophed 4. Dysphagia. PEG cancelled as has SBO. NGT to suction. TOAN RN and Dr Devine Subjective Subjective In ICU off the Vent on 50% Fio2 in SR. No events PEG cancelled as has SBO and NGT to suction. Tracheostomy was just changed by Dr. Devine Objective Last 24 Hour Vital Signs Date Time Temp Pulse Resp B/P (MAP) Pulse Ox O2 Delivery O2 Flow Rate FiO2 07/22/20 11:00 116 36 121/85 (97) 100 07/22/20 10:00 106 41 144/84 (104) 99 07/22/20 09:00 114 28 65 07/22/20 09:00 97.0 118 30 156/82 (106) 100 07/22/20 08:00 107 07/22/20 08:00 Mechanical Ventilator Mechanical Ventilator Mechanical Ventilator 07/22/20 08:00 50 07/22/20 08:00 110 29 144/89 (107) 99 07/22/20 07:30 89 28 173/81 (111) 98 07/22/20 07:25 102 26 65 07/22/20 07:00 109 28 149/90 (109) 100 07/22/20 06:36 103 33 07/22/20 06:00 107 30 174/85 (114) 100 07/22/20 05:30 108 27 151/77 (101) 100 07/22/20 05:16 105 28 50 07/22/20 05:00 106 29 172/104 (126) 100 07/22/20 04:30 103 30 132/83 (99) 100 07/22/20 04:00 99 26 160/80 (106) 100 07/22/20 04:00 Mechanical Ventilator Mechanical Ventilator Mechanical Ventilator 07/22/20 04:00 102 07/22/20 04:00 50 07/22/20 03:30 102 35 138/79 (98) 100 07/22/20 03:12 99 38 50 07/22/20 03:00 98.6 97 32 140/81 (100) 100 07/22/20 02:30 95 35 135/86 (102) 100 07/22/20 02:00 94 35 153/81 (105) 100 07/22/20 01:30 92 32 133/79 (97) 100 07/22/20 01:11 84 32 50 07/22/20 01:00 95 28 125/78 (94) 100 07/22/20 00:30 92 30 125/73 (90) 100 07/22/20 00:00 101 07/22/20 00:00 50 07/22/20 00:00 98.3 96 33 133/76 (95) 100 07/22/20 00:00 Mechanical Ventilator Mechanical Ventilator Mechanical Ventilator 07/21/20 23:30 93 33 131/79 (96) 100 07/21/20 23:12 95 39 50 07/21/20 23:00 95 32 126/88 (101) 100 07/21/20 22:30 97 29 117/72 (87) 100 07/21/20 22:00 99.0 94 17 122/81 (95) 100 07/21/20 21:30 96 31 138/86 (103) 100 07/21/20 21:06 103 40 50 07/21/20 21:00 92 36 124/87 (99) 100 07/21/20 20:30 101 38 129/82 (98) 100 07/21/20 20:00 Mechanical Ventilator Mechanical Ventilator Mechanical Ventilator 07/21/20 20:00 100 38 133/83 (100) 100 07/21/20 20:00 50 07/21/20 20:00 96 07/21/20 19:30 100 39 126/71 (89) 100 07/21/20 19:16 104 43 50 07/21/20 19:00 97 39 133/74 (93) 100 07/21/20 18:02 115 40 150/90 (110) 100 07/21/20 17:50 134 35 50 07/21/20 17:00 111 42 151/91 (111) 100 07/21/20 16:01 99.2 07/21/20 16:00 118 07/21/20 16:00 Trach Collar Mechanical Ventilator 07/21/20 16:00 116 35 152/82 (105) 100 07/21/20 15:34 129 31 50 07/21/20 15:00 126 40 182/111 (134) 100 07/21/20 14:05 108 56 170/97 (121) 83 07/21/20 13:40 100 07/21/20 13:14 96 37 50 07/21/20 13:00 99 29 138/92 (107) 100 Intake and Output 07/21/20 07/22/20 19:00 07:00 Intake Total 825 ml 825 ml Output Total 1851 ml 360 ml Balance -1026 ml 465 ml IV Total 825 ml 825 ml Output Urine Total 1550 ml 360 ml Stool Total 1 ml Gastric Drainage Total 300 ml Laboratory Tests Test 07/22/20 01:35 07/22/20 04:02 POC Whole Blood Glucose Pending White Blood Count 16.2 K/UL (4.8-10.8) H Red Blood Count 4.08 M/UL (4.20-5.40) L Hemoglobin 11.3 G/DL (12.0-16.0) L Hematocrit 37.7 % (37.0-47.0) # Mean Corpuscular Volume 93 FL (80-99) Mean Corpuscular Hemoglobin 27.7 PG (27.0-31.0) Mean Corpuscular Hemoglobin Concent 30.0 G/DL (32.0-36.0) L Red Cell Distribution Width 16.8 % (11.6-14.8) H Platelet Count 420 K/UL (150-450) Mean Platelet Volume 7.7 FL (6.5-10.1) Neutrophils (%) (Auto) 68.5 % (45.0-75.0) Lymphocytes (%) (Auto) 19.8 % (20.0-45.0) L Monocytes (%) (Auto) 5.6 % (1.0-10.0) Eosinophils (%) (Auto) 5.3 % (0.0-3.0) H Basophils (%) (Auto) 0.8 % (0.0-2.0) Erythrocyte Sedimentation Rate 20 MM/HR (0-20) Prothrombin Time 12.2 SEC (9.30-11.50) H Prothromb Time International Ratio 1.1 (0.9-1.1) Sodium Level 135 MMOL/L (136-145) L Potassium Level 4.5 MMOL/L (3.5-5.1) Chloride Level 94 MMOL/L (98-107) L Carbon Dioxide Level 33 MMOL/L (21-32) H Anion Gap 8 mmol/L (5-15) Blood Urea Nitrogen 15 mg/dL (7-18) Creatinine 0.6 MG/DL (0.55-1.30) Estimat Glomerular Filtration Rate > 60 mL/min (>60) Glucose Level 133 MG/DL (74-106) H Calcium Level 11.0 MG/DL (8.5-10.1) H Phosphorus Level 4.7 MG/DL (2.5-4.9) Magnesium Level 2.0 MG/DL (1.8-2.4) Total Bilirubin 0.5 MG/DL (0.2-1.0) Aspartate Amino Transf (AST/SGOT) 42 U/L (15-37) H Alanine Aminotransferase (ALT/SGPT) 24 U/L (12-78) Alkaline Phosphatase 99 U/L (46-116) C-Reactive Protein, Quantitative 8.6 mg/dL (0.00-0.90) H Total Protein 9.8 G/DL (6.4-8.2) H Albumin 3.6 G/DL (3.4-5.0) Globulin 6.2 g/dL Albumin/Globulin Ratio 0.6 (1.0-2.7) L Amylase Level 73 U/L (25-115) Lipase 244 U/L (73-393) Microbiology Date/Time Source Procedure Growth Status 07/19/20 22:00 Urine,Clean Catch Urine Culture - Preliminary Enterobacter Aerogenes Resulted Objective HEAD AND NECK: Status post tracheostomy. NGT in place LUNGS: Coarse rhonchi. CARDIOVASCULAR: Regular S1 and S2 with no gallop. ABDOMEN: Soft. EXTREMITIES: 1+ pitting edema. Hill Bruger MD Jul 22, 2020 12:22
--- NOTE | 2020-07-22 12:45 | Surgery Progress Note ---
Surgery Progress Note Subjective Procedure Performed right femoral central venous line insertion Additional Comments Patient seen examined bedside. Trach cuff continues to be leaky she went on trach collar for some time yesterday but began to desaturate and therefore placed back on vent. Still requires vent support at times unfortunately with her cuff not functioning properly patient does not get the volume she needs. At bedside the tracheostomy was exchanged without complication with a seven proximal Shiley. Patient was made comfortable supine position the bougie was placed through her current tracheostomy once in place the tracheostomy was removed and over the bougie a seven Burmese proximal tracheostomy was placed without complication without resistance without concern. Balloon was insufflated and she was ventilated with good end-tidal CO2's and volumes. Volumes began increasing up to the four 500s now she began saturating 100% within a few minutes more comfortable. She did well for approximately an hour and per report hour later she immediately bradycardic and ACLS. Resuscitated with one of epi now back on support. Unlikely related to trach exchange. Objective Last 24 Hour Vital Signs Date Time Temp Pulse Resp B/P (MAP) Pulse Ox O2 Delivery O2 Flow Rate FiO2 07/22/20 11:00 116 36 121/85 (97) 100 07/22/20 10:00 106 41 144/84 (104) 99 07/22/20 09:00 114 28 65 07/22/20 09:00 97.0 118 30 156/82 (106) 100 07/22/20 08:00 107 07/22/20 08:00 Mechanical Ventilator Mechanical Ventilator Mechanical Ventilator 07/22/20 08:00 50 07/22/20 08:00 110 29 144/89 (107) 99 07/22/20 07:30 89 28 173/81 (111) 98 07/22/20 07:25 102 26 65 07/22/20 07:00 109 28 149/90 (109) 100 07/22/20 06:36 103 33 07/22/20 06:00 107 30 174/85 (114) 100 07/22/20 05:30 108 27 151/77 (101) 100 07/22/20 05:16 105 28 50 07/22/20 05:00 106 29 172/104 (126) 100 07/22/20 04:30 103 30 132/83 (99) 100 07/22/20 04:00 99 26 160/80 (106) 100 07/22/20 04:00 Mechanical Ventilator Mechanical Ventilator Mechanical Ventilator 07/22/20 04:00 102 07/22/20 04:00 50 07/22/20 03:30 102 35 138/79 (98) 100 07/22/20 03:12 99 38 50 07/22/20 03:00 98.6 97 32 140/81 (100) 100 07/22/20 02:30 95 35 135/86 (102) 100 07/22/20 02:00 94 35 153/81 (105) 100 07/22/20 01:30 92 32 133/79 (97) 100 07/22/20 01:11 84 32 50 07/22/20 01:00 95 28 125/78 (94) 100 07/22/20 00:30 92 30 125/73 (90) 100 07/22/20 00:00 101 07/22/20 00:00 50 07/22/20 00:00 98.3 96 33 133/76 (95) 100 07/22/20 00:00 Mechanical Ventilator Mechanical Ventilator Mechanical Ventilator 07/21/20 23:30 93 33 131/79 (96) 100 07/21/20 23:12 95 39 50 07/21/20 23:00 95 32 126/88 (101) 100 07/21/20 22:30 97 29 117/72 (87) 100 07/21/20 22:00 99.0 94 17 122/81 (95) 100 07/21/20 21:30 96 31 138/86 (103) 100 07/21/20 21:06 103 40 50 07/21/20 21:00 92 36 124/87 (99) 100 07/21/20 20:30 101 38 129/82 (98) 100 07/21/20 20:00 Mechanical Ventilator Mechanical Ventilator Mechanical Ventilator 07/21/20 20:00 100 38 133/83 (100) 100 07/21/20 20:00 50 07/21/20 20:00 96 07/21/20 19:30 100 39 126/71 (89) 100 07/21/20 19:16 104 43 50 07/21/20 19:00 97 39 133/74 (93) 100 07/21/20 18:02 115 40 150/90 (110) 100 07/21/20 17:50 134 35 50 07/21/20 17:00 111 42 151/91 (111) 100 07/21/20 16:01 99.2 07/21/20 16:00 118 07/21/20 16:00 Trach Collar Mechanical Ventilator 07/21/20 16:00 116 35 152/82 (105) 100 07/21/20 15:34 129 31 50 07/21/20 15:00 126 40 182/111 (134) 100 07/21/20 14:05 108 56 170/97 (121) 83 07/21/20 13:40 100 07/21/20 13:14 96 37 50 07/21/20 13:00 99 29 138/92 (107) 100 I&O Intake and Output 07/21/20 07/22/20 19:00 07:00 Intake Total 825 ml 825 ml Output Total 1851 ml 360 ml Balance -1026 ml 465 ml IV Total 825 ml 825 ml Output Urine Total 1550 ml 360 ml Stool Total 1 ml Gastric Drainage Total 300 ml Dressing: dry Cardiovascular: RSR Respiratory: decreased breath sounds Abdomen: soft, non-tender, present bowel sounds, non-distended Extremities: no tenderness, no cyanosis Laboratory Tests Test 07/22/20 01:35 07/22/20 04:02 POC Whole Blood Glucose Pending White Blood Count 16.2 K/UL (4.8-10.8) H Red Blood Count 4.08 M/UL (4.20-5.40) L Hemoglobin 11.3 G/DL (12.0-16.0) L Hematocrit 37.7 % (37.0-47.0) # Mean Corpuscular Volume 93 FL (80-99) Mean Corpuscular Hemoglobin 27.7 PG (27.0-31.0) Mean Corpuscular Hemoglobin Concent 30.0 G/DL (32.0-36.0) L Red Cell Distribution Width 16.8 % (11.6-14.8) H Platelet Count 420 K/UL (150-450) Mean Platelet Volume 7.7 FL (6.5-10.1) Neutrophils (%) (Auto) 68.5 % (45.0-75.0) Lymphocytes (%) (Auto) 19.8 % (20.0-45.0) L Monocytes (%) (Auto) 5.6 % (1.0-10.0) Eosinophils (%) (Auto) 5.3 % (0.0-3.0) H Basophils (%) (Auto) 0.8 % (0.0-2.0) Erythrocyte Sedimentation Rate 20 MM/HR (0-20) Prothrombin Time 12.2 SEC (9.30-11.50) H Prothromb Time International Ratio 1.1 (0.9-1.1) Sodium Level 135 MMOL/L (136-145) L Potassium Level 4.5 MMOL/L (3.5-5.1) Chloride Level 94 MMOL/L (98-107) L Carbon Dioxide Level 33 MMOL/L (21-32) H Anion Gap 8 mmol/L (5-15) Blood Urea Nitrogen 15 mg/dL (7-18) Creatinine 0.6 MG/DL (0.55-1.30) Estimat Glomerular Filtration Rate > 60 mL/min (>60) Glucose Level 133 MG/DL (74-106) H Calcium Level 11.0 MG/DL (8.5-10.1) H Phosphorus Level 4.7 MG/DL (2.5-4.9) Magnesium Level 2.0 MG/DL (1.8-2.4) Total Bilirubin 0.5 MG/DL (0.2-1.0) Aspartate Amino Transf (AST/SGOT) 42 U/L (15-37) H Alanine Aminotransferase (ALT/SGPT) 24 U/L (12-78) Alkaline Phosphatase 99 U/L (46-116) C-Reactive Protein, Quantitative 8.6 mg/dL (0.00-0.90) H Total Protein 9.8 G/DL (6.4-8.2) H Albumin 3.6 G/DL (3.4-5.0) Globulin 6.2 g/dL Albumin/Globulin Ratio 0.6 (1.0-2.7) L Amylase Level 73 U/L (25-115) Lipase 244 U/L (73-393) Plan Problems: (1) Respiratory distress (2) Respiratory failure Assessment & Plan: 50-year-old female Covid positive respiratory insufficiency intubated on ventilatory support declining. Leukocytosis increase oxygen requirement. Vent settings per pulmonology reviewed identified and agree. Unfortunately further surgical invention at this time is not appropriate as patient is not a candidate and her current condition. Prognosis overall guarded. Tracheostomy can be considered in the future if recovering or shows improvement and requires unable to be weaned from ventilator support. Currently okay for nutritional optimization with NG tube. Will need significant monitoring for decubitus formation given patient's size and condition. Okay for air mattress tolerated. Turn every 2 hours as tolerated. Patient is otherwise critically ill and blood pressure labile. Will need to monitor closely.Bilater al infiltrates are again demonstrated. Stable tube and line positions. will need trach will need to wean vent first no cuff leak trach okay Improving weaning well DC planning placement much improved peg placement trach changed acls now resuscitated (3) Hypoxia (4) Pneumonia due to COVID-19 virus Assessment & Plan: ++ as per pulm and ID (5) Diabetes mellitus out of control Assessment & Plan: DAILY ESTIMATED NEEDS: Needs based on Critical care, obesity 11-14kcal/kg actual body wt (140kg) kcals/kg 7879-7380 total kcals 1.5-2.0g prot/kg IBW (64.5kg) g protein/kg 96-129 g total protein 25-30ml/kg abw (83kg) mL/kg 4044-9392 total fluid mLs NUTRITION DIAGNOSIS: Swallowing difficulty R/T respiratory failure as evidenced by pt orally intubated and sedated, on OGT feeds. CURRENT TF: Vital 1.2 goal of 60ml/hr ENTERAL NUTRITION RECOMMENDATIONS: Vital AF 1.2 @ 60ml/hr x 24 hrs to provide 1440ml, 1728kcal, 108g prot, 1168ml free water * Maintain current critical care and carb controlled TF formula of Vital AF * TF @ goal meeds 100% est kcal/prot needs * HOB over 30 degrees/ water flush per MD TF may be lowered to 55ml/hr for improved BG control while maintaining Kcal and pro needs. ADDITIONAL RECOMMENDATIONS: * Calibrated bedscale wt * Monitor Propofol rate, need for TF adjustment-> now off * Monitor BGs closely : now improved, on novolog q 6rs + NISS * Monitor lytes- K elevated, monitor need for TF change * Rec bowel regimen- now w/ rectal tube . Az Devine Jul 22, 2020 12:45
[2020-07-22] MEDS ORDERED: EPINEPHrine 1mg/1ml Amp 1 MG in D5W 249 ML IV SCH (13:00)
[2020-07-22] MEDS ORDERED: Tubing IV Secondary IV ONE ×2 (13:23→13:33)
[2020-07-22] MEDS ORDERED: Sterile Water Irrig 1000ml IRRIG ONE (13:23)
[2020-07-22] MEDS ORDERED: NS 275ml ONE ×2 (13:23→13:33)
[2020-07-22] MEDS ORDERED: D5 1/2NS 1000ml IV ONE (13:33)
--- NOTE | 2020-07-22 13:48 | Operative Note - PDOC ---
Operative Note Operative Note Date of Operation/Procedure: Jul 22, 2020 Pre-op Diagnosis: covid + sepsis respiratory insufficiency Pneumothorax Procedure: right tube chest tube insertion Post-op Diagnosis: same as pre-op Surgeon: Az Devine Anesthesia: local Specimen: none Complications: none Condition: unstable Fluids: See records Estimated Blood Loss: minimal Drains: other Implant(s) used?: No Indications for Procedure 50-year-old female Risser insufficiency tracheostomy the blood in the tracheostomy cuff is stopped functioning she has not been able to tolerate weaning she is required increased oxygenation support decreasing volumes and therefore tracheostomy exchange indicated recommended and was performed bedside earlier this morning without complication. Approximately sometime after the tracheostomy exchange with the cuff up her peak pressures were high and patient began declining. ACLS resuscitation crepitus identified on examination while waiting for x-ray it was evident that likely etiology is patient has a tension pneumothorax. A decompression needle was placed on the right side air noted. Chest x-ray at this time available identifying a large right pneumothorax. Right chest tube indicated recommend an emergency place in the ICU at bedside Description of Procedure Patient was placed in the supine position. Patient's body habitus BMI and given her condition status very large cleavage in is extremely complicated to consider place a maxillary tube and therefore decision was made to go intercostal midclavicular. Right chest wall is prepped draped in same surgical fashion. Skin incision was made carried down this obtains tissue to the intercostal space. Entry into the intercostal space pleural cavity obtained immediate gush of air identified saturations improved to 20 Amharic chest tube placed under direct palpation into the intercostal space into the lung field. Placed on a Pleur-evac suction chest x-ray obtained pneumothorax significantly improved small residual. Extensive subcutaneous emphysema identified and potentially some free air into the abdomen is liver is clearly identified and potential diaphragm. With extensive moderate air is very likely that this tract in from her large tension pneumothorax high pressures. Will monitor clinically. Continue chest tube suction continue ventilator support a.m. x-ray Az Devine Jul 22, 2020 13:48
--- NOTE | 2020-07-22 13:58 | NUR ---
RADIOLOGY DEPT., CHEST FOR PICC AND ABDOMEN ( N/GT PLCMT) COMPLETED.-P.DYE
--- NOTE | 2020-07-22 13:59 | General Progress Note ---
Subjective ROS Limited/Unobtainable: No Allergies: Coded Allergies: No Known Allergies (Unverified , 05/28/20) Objective Last 24 Hour Vital Signs Date Time Temp Pulse Resp B/P (MAP) Pulse Ox O2 Delivery O2 Flow Rate FiO2 07/22/20 11:00 116 36 121/85 (97) 100 07/22/20 10:00 106 41 144/84 (104) 99 07/22/20 09:00 114 28 65 07/22/20 09:00 97.0 118 30 156/82 (106) 100 07/22/20 08:00 107 07/22/20 08:00 Mechanical Ventilator Mechanical Ventilator Mechanical Ventilator 07/22/20 08:00 50 07/22/20 08:00 110 29 144/89 (107) 99 07/22/20 07:30 89 28 173/81 (111) 98 07/22/20 07:25 102 26 65 07/22/20 07:00 109 28 149/90 (109) 100 07/22/20 06:36 103 33 07/22/20 06:00 107 30 174/85 (114) 100 07/22/20 05:30 108 27 151/77 (101) 100 07/22/20 05:16 105 28 50 07/22/20 05:00 106 29 172/104 (126) 100 07/22/20 04:30 103 30 132/83 (99) 100 07/22/20 04:00 99 26 160/80 (106) 100 07/22/20 04:00 Mechanical Ventilator Mechanical Ventilator Mechanical Ventilator 07/22/20 04:00 102 07/22/20 04:00 50 07/22/20 03:30 102 35 138/79 (98) 100 07/22/20 03:12 99 38 50 07/22/20 03:00 98.6 97 32 140/81 (100) 100 07/22/20 02:30 95 35 135/86 (102) 100 07/22/20 02:00 94 35 153/81 (105) 100 07/22/20 01:30 92 32 133/79 (97) 100 07/22/20 01:11 84 32 50 07/22/20 01:00 95 28 125/78 (94) 100 07/22/20 00:30 92 30 125/73 (90) 100 07/22/20 00:00 101 07/22/20 00:00 50 07/22/20 00:00 98.3 96 33 133/76 (95) 100 07/22/20 00:00 Mechanical Ventilator Mechanical Ventilator Mechanical Ventilator 07/21/20 23:30 93 33 131/79 (96) 100 07/21/20 23:12 95 39 50 07/21/20 23:00 95 32 126/88 (101) 100 07/21/20 22:30 97 29 117/72 (87) 100 07/21/20 22:00 99.0 94 17 122/81 (95) 100 07/21/20 21:30 96 31 138/86 (103) 100 07/21/20 21:06 103 40 50 07/21/20 21:00 92 36 124/87 (99) 100 07/21/20 20:30 101 38 129/82 (98) 100 07/21/20 20:00 Mechanical Ventilator Mechanical Ventilator Mechanical Ventilator 07/21/20 20:00 100 38 133/83 (100) 100 07/21/20 20:00 50 07/21/20 20:00 96 07/21/20 19:30 100 39 126/71 (89) 100 07/21/20 19:16 104 43 50 07/21/20 19:00 97 39 133/74 (93) 100 07/21/20 18:02 115 40 150/90 (110) 100 07/21/20 17:50 134 35 50 07/21/20 17:00 111 42 151/91 (111) 100 07/21/20 16:01 99.2 07/21/20 16:00 118 07/21/20 16:00 Trach Collar Mechanical Ventilator 07/21/20 16:00 116 35 152/82 (105) 100 07/21/20 15:34 129 31 50 07/21/20 15:00 126 40 182/111 (134) 100 07/21/20 14:05 108 56 170/97 (121) 83 Intake and Output 07/21/20 07/22/20 19:00 07:00 Intake Total 825 ml 825 ml Output Total 1851 ml 360 ml Balance -1026 ml 465 ml IV Total 825 ml 825 ml Output Urine Total 1550 ml 360 ml Stool Total 1 ml Gastric Drainage Total 300 ml Laboratory Tests 07/22/20 01:35: POC Whole Blood Glucose [Pending] 07/22/20 04:02: White Blood Count 16.2H, Red Blood Count 4.08L, Hemoglobin 11.3L, Hematocrit 37.7#, Mean Corpuscular Volume 93, Mean Corpuscular Hemoglobin 27.7, Mean Corpuscular Hemoglobin Concent 30.0L, Red Cell Distribution Width 16.8H, Platelet Count 420, Mean Platelet Volume 7.7, Neutrophils (%) (Auto) 68.5, Lymphocytes (%) (Auto) 19.8L, Monocytes (%) (Auto) 5.6, Eosinophils (%) (Auto) 5.3H, Basophils (%) (Auto) 0.8, Erythrocyte Sedimentation Rate 20, Prothrombin Time 12.2H, Prothromb Time International Ratio 1.1, Sodium Level 135L, Potassium Level 4.5, Chloride Level 94L, Carbon Dioxide Level 33H, Anion Gap 8, Blood Urea Nitrogen 15, Creatinine 0.6, Estimat Glomerular Filtration Rate > 60, Glucose Level 133H, Calcium Level 11.0H, Phosphorus Level 4.7, Magnesium Level 2.0, Total Bilirubin 0.5, Aspartate Amino Transf (AST/SGOT) 42H, Alanine Aminotransferase (ALT/SGPT) 24, Alkaline Phosphatase 99, C-Reactive Protein, Quantitative 8.6H, Total Protein 9.8H, Albumin 3.6, Globulin 6.2, Albumin/Gl obulin Ratio 0.6L, Amylase Level 73, Lipase 244 Height (Feet): 5 Height (Inches): 5.00 Weight (Pounds): 223 General Appearance: lethargic EENT: normal ENT inspection Neck: supple Cardiovascular: normal rate Respiratory/Chest: decreased breath sounds Abdomen: normal bowel sounds, non tender, soft Extremities: non-tender Assessment/Plan Problem List: (1) Morbid obesity ICD Codes: E66.01 - Morbid (severe) obesity due to excess calories SNOMED: 264690617 (2) DEVENDRA (acute kidney injury) ICD Codes: N17.9 - Acute kidney failure, unspecified SNOMED: 3298531, 82109547 (3) Diabetes mellitus out of control ICD Codes: E11.65 - Type 2 diabetes mellitus with hyperglycemia SNOMED: 46270575, 222528942 (4) Pneumonia due to COVID-19 virus ICD Codes: U07.1 - COVID-19; J12.82 - Pneumonia due to coronavirus disease 2019 SNOMED: 530865347499973440 (5) Hypoxia ICD Codes: R09.02 - Hypoxemia SNOMED: 083384552 (6) Respiratory failure ICD Codes: J96.90 - Respiratory failure, unspecified, unspecified whether with hypoxia or hypercapnia SNOMED: 332516945 Status: unchanged Assessment/Plan: coded 2 x hold NGTF hold PEG plans for now will Ryan Dubose MD Jul 22, 2020 13:59
[2020-07-22] MEDS ORDERED: Pamidronate Disodium Inj 60 MG in Sodium Chloride 550 ML IVPB ONE (14:00)
[2020-07-22] MEDS: Meropenem 1 GM in NS 55 ML IVPB SCH ×2 (14:51→20:37)
--- NOTE | 2020-07-22 14:51 | Emergency Room Report ---
History of Present Illness General Chief Complaint: Dyspnea/Respdistress Source: Medical Record, PMD Present Illness Allergies: Coded Allergies: No Known Allergies (Unverified , 05/28/20) COVID-19 Screening Contact w/high risk pt: Yes Experienced COVID-19 symptoms?: Yes COVID-19 Testing performed WEIGHER AND GRADER: Yes COVID-19 Screening: Positive COVID-19 COVID-19 Testing Source: [facility] Patient History Now: No Nursing Documentation-PMH Past Medical History Deferred: Patient Unconscious Past Medical History: No History, Except For Hx Cardiac Problems: Yes Hx Hypertension: Yes Hx Diabetes: Yes Hx Cancer: No Hx Gastrointestinal Problems: No Physical Exam Vital Signs Date Time Temp Pulse Resp B/P (MAP) Pulse Ox O2 Delivery O2 Flow Rate FiO2 07/18/20 07:00 23 104/70 Mechanical Ventilator 40 07/18/20 07:00 85 100 07/18/20 08:00 98.9 07/21/20 11:20 50.0 Procedures CPR/Code Blue CPR/Code Blue Narrative CODE BLUE sheet for full narrative Medical Decision Making Diagnostic Impression: Primary Impression: Respiratory distress Additional Impression: Pneumonia due to COVID-19 virus ER Course Called to the ICU to evaluate this CODE BLUE. Had a recently had trach changed at bedside by surgeon. About 1520 minutes later patient became bradycardic and unresponsive. Chest compressions started. Patient given epinephrine x1 and bicarbonate x1 and pulse regained. Trach appears to be in place. Patient has good tidal volumes during ventilation. Last Vital Signs Date Time Temp Pulse Resp B/P (MAP) Pulse Ox O2 Delivery O2 Flow Rate FiO2 07/22/20 12:30 52/26 07/22/20 12:00 128 07/22/20 11:00 36 100 07/22/20 09:00 65 07/22/20 09:00 97.0 07/22/20 08:00 Mechanical Ventilator Mechanical Ventilator Mechanical Ventilator 07/21/20 11:20 50.0 Status: improved Disposition: ADMITTED INPATIENT Condition: Critical Referrals: NON PHYSICIAN (PCP) Heath Palumbo MD Jul 22, 2020 14:51
[2020-07-22] MEDS: fentaNYL 2500mcg/NS 250ml 250 ML IV PRN (14:54)
[2020-07-22] MEDS: Versed 100mg/NS 200ml 200 ML IV PRN ×2 (15:00→23:52)
--- NOTE | 2020-07-22 16:16 | Diagnostic Imaging Report ---
Indication: Abdominal pain Technique: Supine view of the abdomen Comparison: 07/20/2020 Findings: Previously demonstrated orogastric tube is no longer evident. There is decreased bowel gas. Calcifications to the right of the spine are again noted as is a right groin central venous catheter and a Lennon catheter. Impression: Previously demonstrated gastric tube no longer evident. Decreased bowel gas
--- NOTE | 2020-07-22 16:34 | Diagnostic Imaging Report ---
. Indication: Shortness of breath Technique: One view of the chest Comparison: 07/19/2020 Findings: Interim development of a massive right pneumothorax, with evidence of some leftward mediastinal shift. There is marked opacification of the collapsed right lung. The left lung remains opacified as well. There is extensive supraclavicular emphysema. There is a right chest vent catheter, which appears to be extrathoracic on the initial images. Subsequent images document placement of a right-sided chest tube and near complete reexpansion of the right lung. There is a curvilinear opacity in the right lower hemithorax, which could represent gas in a persistent basilar pneumothorax outlining the right lung base or a pneumoperitoneum. Impression: Massive right pneumothorax. Improved after large bore chest tube placement. Persistent right basilar pneumothorax versus pneumoperitoneum. Interim development of subcutaneous emphysema Persistent and extensive bilateral infiltrates Tracheostomy Images previously reviewed in person with Dr. Devine
--- NOTE | 2020-07-22 16:37 | Diagnostic Imaging Report ---
Indication: Post nasogastric tube placement Technique: Supine view of the abdomen Comparison: 6 hours earlier Findings: Nasogastric tube tip projects at the level of the gastric antrum, advanced since the prior study. Much of the anatomy is obscured by the extensive subcutaneous emphysema. Unclear based on the available images whether pneumoperitoneum suspected on prior chest radiograph is present. Impression: Satisfactory nasogastric intubation Marked worsening of subcutaneous emphysema of
[2020-07-22] MEDS ORDERED: Sodium Bicarbonate 8.4% 50ml Inj ONE (18:20)
--- NOTE | 2020-07-22 18:57 | NUR ---
RESPIRATORY NOTE: Received pt on AC VC+ 15, 400VT, 100%, PEEP +5. Pt is trach-dependent w/ a cuffed, Shiley 7 XLT tube. Pt obtunded. B/S dilan. diminished, sxn scant amounts of thick/thin, pale-yellow secretions. Vent plugged into red outlet, alarms on & audible. BVM at bedside. Pt in no apparent distress at this time. Will continue to monitor pt.
--- NOTE | 2020-07-22 19:30 | NUR ---
Received report from RAKEL Reyes and assumed care of patient.
--- NOTE | 2020-07-22 19:34 | NUR ---
At approximately 11:45 pt trach was exchanged. At 12:00 pt began to become hypotensive and bradycardic. Asked charge gang weigher to reach provider for levo orders. At approximately 12:15 pt began to decompensate and code was called. Two RN's and respiratory at bedside. Pt was given 1 epinephrine and 1 sodium bicarbonate before ROSC was obtained. Levophed was started shortly thereafter. Order for stat chest xray placed. 1300 pt began to continuously decompensate. MD at bedside. Awaiting chest xray. CODE BLUE called approximately 1310. Pt was given 2 amps of epi and i amp of sodium bicarbonate. MD performed small chest tube insertion. ROSC was obtained. Xray was obtained. Chest tube was placed shortly after. New NG inserted. Orders to start pt on sedation. Pt now 100% FiO2. Pt open eyes but does not follow commands. Pt remains on levo. Pt with bright red drainage to chest tube. 1929: Report given to Elidia ELLINGTON. Addendum: 07/23/20 at 0739 by Amy Galaviz RN Pt restraints were removed at 12:00 prior to code and discontinued at that time.
--- NOTE | 2020-07-22 20:00 | NUR ---
Physical assessment completed on patient, see charting for details. patient awakened and became slightly agitated when in room. pt grimacing during exam. Increased sedation to allow for a RASS -2. Pt chest tube to suction, patent, site is CDI. Mimimal output noted. BP was soft, increased levophed slightly. See IV spreadsheet for details on medications. Will continue to monitor the patient.
[2020-07-22] MEDS: Dyna-Hex 2% Top Sol 2oz TOPIC SCH (20:37)
--- NOTE | 2020-07-22 22:00 | NUR ---
Pt remains on levophed, attempting titration. Pt in NAD, chest tube patent and in place. VSS, pt afebrile. Slight turns for repositioning due to positional trach. Oral care provided will continue to monitor.
[2020-07-23] VITALS (75 sets, daily range): BP systolic 81–113; BP diastolic 48–75
--- NOTE | 2020-07-23 00:30 | NUR ---
Midnight assessment complete. See charting for details. Slight repositioning. Oral care provided. Pt remains on Levophed. See IV spreadsheet for details. Will continue to monitor.
--- NOTE | 2020-07-23 02:30 | NUR ---
Pt remains in NAD. Slight repositioning completed. Oral care completed. Pt stable on levophed. See charting for further details, will continue to monitor the patient.
[2020-07-23] MEDS: Meropenem 1 GM in NS 55 ML IVPB SCH ×3 (04:08→20:19)
--- NOTE | 2020-07-23 04:25 | NUR ---
0400 assessment completed, see charting for details. no changes in assessment findings. Chest tube remains patent and in place with serosanguineous output. Oral care provided, slight position change done, will continue to monitor.
[2020-07-23] MEDS: D5 1/2NS 1,000 ML IV SCH ×2 (05:00→18:39)
[2020-07-23 05:25] LABS: BASOPHILS % (AUTO) 0.6 % (0.0-2.0); EOSINOPHILS % (AUTO) 9.2 % (0.0-3.0); HEMOGLOBIN 8.4 G/DL (12.0-16.0); LYMPHOCYTES % (AUTO) 18.7 % (20.0-45.0); MEAN CORPUSCULAR VOLUME 91 FL (80-99); MONOCYTES % (AUTO) 10.1 % (1.0-10.0); NEUTROPHILS % (AUTO) 61.4 % (45.0-75.0); PLATELET COUNT 358 K/UL (150-450); RED BLOOD COUNT 3.07 M/UL (4.20-5.40); RED CELL DISTRIBUTION WIDTH 17.1 % (11.6-14.8); WHITE BLOOD COUNT 15.7 K/UL (4.8-10.8)
[2020-07-23 06:07] LABS: ALANINE AMINOTRANSFERASE 37 U/L (12-78); ALBUMIN 2.6 G/DL (3.4-5.0); ALBUMIN/GLOBULIN RATIO 0.6 (1.0-2.7); ALKALINE PHOSPHATASE 63 U/L (46-116); ANION GAP 6 mmol/L (5-15); ASPARTATE AMINO TRANSFERASE 54 U/L (15-37); BILIRUBIN,TOTAL 0.3 MG/DL (0.2-1.0); BLOOD UREA NITROGEN 20 mg/dL (7-18); CALCIUM 10.1 MG/DL (8.5-10.1); CARBON DIOXIDE 34 MMOL/L (21-32); CHLORIDE 98 MMOL/L (98-107); CREATININE 0.7 MG/DL (0.55-1.30); POTASSIUM 3.8 MMOL/L (3.5-5.1); SODIUM 138 MMOL/L (136-145)
[2020-07-23] MEDS: Midodrine 10mg tab GT SCH ×3 (06:16→20:19)
--- NOTE | 2020-07-23 06:17 | NUR ---
Pt remains in NAD. Chest tube intact and patent. Drained 37 overnight. Pt remains on levophed although able to wean down. See IV spreadsheet for details. pt repositioned and oral care provided. Will continue to monitor.
--- NOTE | 2020-07-23 06:41 | Hematology/Onc Progress Note ---
Assessment/Plan Assessment/Plan # Deep vein thrombosis of the right calf --> given onoing anemia and low plts --> consider ivc if bleeding--once stable, needs it placed --> once stable, for radiology and ivc filter placement # Thrombocytopenia is due to infection/underlying covid19+++ --> ABX ceftriaxone -->zosyn-->off --> on steriods likely cause of initial wbc --> per pulm --> plt 107->156-->192-->205 --> smear reviewed # Leukocytosis due to Pneumonia due to COVID-19 virus --> per pulm rx -> sp remdesivir --> wbc 11.9-->11-->21 # Anemia due to chronic disease --> hgb goal is >7 --> transfuse prn --> ferritin is >1000 --> hold off on iron --> 10-->9.8->9-->8-->8.2-->9.4-->8.1-->9.9-->9.6-->9.5-->9.6-->8.6-->11-->8.4 # Elevated ddimer due to covid19++ --> duplex legs is negative --> underlying covid rx # Hypoxia -> due to covid19 --> steriods as needed # Hypoxemia --> rx same as above # Respiratory failure --> on vent/trach --> per pulm # Diabetes mellitus out of control --> hgb a1c goal <7 # Poor prognosis # Dvt ppx ivc filter once more stable Appreciate consultation and bowen RN Subjective Allergies: Coded Allergies: No Known Allergies (Unverified , 05/28/20) All Systems: reviewed and negative except above Subjective 06/10 nv, on vent, with ogt, on fentanyl and versed, plt stable 06/11 nv, vent adjusted is on ogt, meds reviewed 06/12 nv, vent, meds noted, labs noted, no bleeding, hgb 10.4 06/13 nv, is on vent, meds reviewed, no bleeding, cbc reviewed 06/14 nv, on vent, tachy, labs reviewed, gross hematuria, febrile overnight, abx 06/17 nv, on vent, labs noted, no major changes, feeling better overnight 06/18 nv, meds reviewed, labs noted, no major events, hgb 8.6 06/19 nv, remains intubated, with fluids, labs reviewed, meds noted 06/20 nv, intubated remains on restraints, meds noted as well, as labs 06/21 nv, remains on vent, on restraints, meds reviewed, labs noted 06/22: covering Dr. Del Cid no acute events 06/23 sedated, on vent, nv, intubated, meds reviewed, versed 06/24 nv, on vent, no night sweats, no bleeding, remains in icu 06/25 nv, on vent, icu, meds noted, no bleeding, comfortable 06/26 nv, on versed, icu, weaning parameters, labs noted 06/27 nv, overnight fighting vent, as per pulm fentanyl on board 06/28 nv, on vent, labs reviewed, as per pulm, meds noted 06/30 nv, icu, labs pending, is on fentanyl, versed, no new changes 07/01 nv, icu, is on vent, labs pending, no new changes per rn 07/02 nv, icu is on vent, labs noted, hgb is stable 07/03 nv, icu, is on vent, potential trrach when stable, cbc reviewed 07/04 icu, nv, labs are noted, stable for trach today bowen Lizama 07/05 icu, nv, on vent, with ng and picc in place, labs noted, s/p trach 07/07 icu, nv, on tv, no bleeding, labs noted, meds reviewed 07/08 icu, nv, on tv, labs reviewed, meds noted, no bleeding 07/09 icu, nv, meds noted, no bleeding, blood transfusion was completed 07/10 icu, nv, labs ntoed, no bleeding, hgb improved, hgb 7.8 07/11 icu, nv, labs reviewed, hgb is improved, for ivcf if stabilizes 07/12 icu, nv, labs reviewed, meds noted, no bleeding, remains on vent 07/13 icu, on vent, nv, no bleeding, labs reviewed, no major events, bowen rn 07/14 icu, on vent, nv, tolerating ngt feeds, bowen Rn, meds reviewed 07/15 icu, on vent, trach, tolerating ngt, meds noted, no bleeding 07/16 icu, vent, labs are noted, with trach, is stable, hgb 9.2 07/17 icu, had a bm overnight, remains on vent with trach, labs noted 07/18 icu, nv, labs are ntoed, no bleeding, on trach, on levophed 07/20 nc, icu, meds noted, v/t, no bleeding, labs noted, on versed 07/21 nv, trach/vent, tube feeds on hold, labs reviewed, icu 07/22 nv, icu, bp remains high, on v/t, labs noted, no bleeding 07/23 nv, ct is in place, on v/t, meds reviewed, in icu, on LEVO Objective Objective Current Medications Medications (Trade) Dose Ordered Sig/Zelda Route PRN Reason Start Time Stop Time Status Last Admin Dose Admin Acetaminophen (Tylenol) 650 mg Q4H PRN NG Temp >100.5 06/29/20 10:15 07/29/20 10:14 07/20/20 18:12 Acetaminophen (Tylenol) 650 mg Q6H PRN NG Mild Pain (Pain Scale 1-3) 06/29/20 10:15 07/29/20 10:14 07/22/20 11:56 Calcitonin Hildreth (Miacalcin) 1 sprays DAILY NASAL 07/22/20 14:00 10/20/20 13:59 07/22/20 14:54 Chlorhexidine Gluconate (Inna-Hex 2%) 1 applic DAILY@2000 TOPIC 07/20/20 20:00 10/18/20 19:59 07/22/20 20:37 Dextrose (Dextrose 50%) 25 ml Q30M PRN IV Hypoglycemia 06/05/20 10:45 09/03/20 10:44 Dextrose (Dextrose 50%) 50 ml Q30M PRN IV Hypoglycemia 06/05/20 10:45 09/03/20 10:44 Dextrose/Sodium Chloride 1,000 ml @ 75 mls/hr [id number] IV 07/20/20 12:30 08/19/20 12:29 07/23/20 05:00 Enoxaparin Sodium (Lovenox) 110 mg EVERY 12 HOURS SUBQ 07/17/20 21:00 10/15/20 20:59 07/22/20 20:38 Fentanyl Citrate 250 ml @ 0 mls/hr Q24H PRN IV . 07/22/20 14:00 07/24/20 13:59 07/22/20 14:54 Guaifenesin/ Codeine Phosphate (Robitussin with codeine) 5 ml Q6H PRN NG For Cough 07/14/20 14:15 08/13/20 14:14 07/18/20 21:44 Lansoprazole (Prevacid) 30 mg DAILY GT 07/18/20 09:00 08/09/20 08:59 07/22/20 10:05 Meropenem 1 gm/ Sodium Chloride 55 ml @ 110 mls/hr Q8H IVPB 07/22/20 12:00 07/27/20 11:59 07/23/20 04:08 Midazolam HCl 200 ml @ 0 mls/hr Q24H PRN IV sedation 07/22/20 14:06 07/29/20 14:05 07/22/20 23:52 Midodrine (Pro-Amatine) 10 mg Q8HR GT 06/30/20 14:00 09/12/20 13:59 07/23/20 06:16 Norepinephrine Bitartrate 8 mg/ Dextrose 250 ml @ 0 mls/hr Q24H IV 07/22/20 13:00 07/25/20 12:59 07/23/20 04:08 Quetiapine Fumarate (SEROqueL) 50 mg Q12HR GT 07/16/20 13:30 08/30/20 13:29 07/22/20 20:37 Last 24 Hour Vital Signs Date Time Temp Pulse Resp B/P (MAP) Pulse Ox O2 Delivery O2 Flow Rate FiO2 07/23/20 06:32 92 28 07/23/20 06:00 26 97/59 Mechanical Ventilator 100 07/23/20 06:00 26 97/59 Mechanical Ventilator 100 07/23/20 06:00 97/59 07/23/20 06:00 98.0 93 26 97/59 (72) 100 07/23/20 05:45 95 23 99/59 (72) 100 07/23/20 05:30 92 23 109/64 (79) 100 07/23/20 05:15 92 26 100 07/23/20 05:15 91 25 104/65 (78) 100 07/23/20 05:00 91 26 104/68 (80) 100 07/23/20 05:00 26 104/68 Mechanical Ventilator 100 07/23/20 05:00 26 104/68 Endotracheal Tube 100 07/23/20 05:00 104/68 07/23/20 04:45 92 25 105/66 (79) 100 07/23/20 04:30 93 26 105/64 (78) 100 07/23/20 04:15 91 27 108/68 (81) 100 07/23/20 04:08 106/65 07/23/20 04:00 98.9 91 26 106/65 (79) 100 07/23/20 04:00 91 07/23/20 04:00 26 108/68 Mechanical Ventilator 100 07/23/20 04:00 26 108/68 Mechanical Ventilator 100 07/23/20 04:00 108/68 07/23/20 04:00 100 07/23/20 04:00 Mechanical Ventilator Mechanical Ventilator Mechanical Ventilator 07/23/20 03:45 92 22 108/69 (82) 100 07/23/20 03:30 92 26 103/66 (78) 100 07/23/20 03:15 91 26 101/63 (76) 100 07/23/20 03:10 91 25 100 07/23/20 03:00 26 101/63 Mechanical Ventilator 100 07/23/20 03:00 26 101/63 Mechanical Ventilator 100 07/23/20 03:00 101/63 07/23/20 03:00 91 27 103/65 (78) 100 07/23/20 02:45 91 28 104/65 (78) 100 07/23/20 02:30 91 29 106/68 (81) 100 07/23/20 02:15 90 20 109/69 (82) 100 07/23/20 02:00 24 109/69 Mechanical Ventilator 100 07/23/20 02:00 24 109/69 Mechanical Ventilator 100 07/23/20 02:00 109/69 07/23/20 02:00 92 20 104/68 (80) 100 07/23/20 01:45 92 20 107/72 (84) 100 07/23/20 01:30 103 20 99/61 (74) 100 07/23/20 01:15 95 20 112/69 (83) 100 07/23/20 01:04 92 26 100 07/23/20 01:00 91 20 105/67 (80) 100 07/23/20 01:00 20 112/69 Mechanical Ventilator 100 07/23/20 01:00 20 112/69 Mechanical Ventilator 100 07/23/20 01:00 112/69 07/23/20 00:45 91 20 105/69 (81) 100 07/23/20 00:30 90 20 101/70 (80) 100 07/23/20 00:15 91 22 103/68 (80) 100 07/23/20 00:00 98.5 92 12 107/68 (81) 100 07/23/20 00:00 19 103/68 Mechanical Ventilator 100 07/23/20 00:00 20 103/68 Mechanical Ventilator 100 07/23/20 00:00 103/68 07/23/20 00:00 92 07/23/20 00:00 Mechanical Ventilator Mechanical Ventilator Mechanical Ventilator 07/22/20 23:52 23 101/69 Mechanical Ventilator 100 07/22/20 23:45 92 25 102/66 (78) 100 07/22/20 23:30 91 23 104/68 (80) 100 07/22/20 23:15 92 31 106/69 (81) 100 07/22/20 23:00 93 23 103/69 (80) 100 07/22/20 23:00 23 103/69 Mechanical Ventilator 100 07/22/20 23:00 23 103/69 Mechanical Ventilator 100 07/22/20 23:00 103/69 07/22/20 22:57 93 26 100 07/22/20 22:45 93 35 101/67 (78) 100 07/22/20 22:30 94 33 102/64 (77) 100 07/22/20 22:15 93 31 99/68 (78) 100 07/22/20 22:00 33 101/67 Mechanical Ventilator 100 07/22/20 22:00 33 101/67 Mechanical Ventilator 100 07/22/20 22:00 101/67 07/22/20 22:00 94 33 101/67 (78) 100 07/22/20 21:45 96 34 96/64 (75) 100 07/22/20 21:30 98 29 97/60 (72) 100 07/22/20 21:15 99 33 97/58 (71) 100 07/22/20 21:00 29 101/69 Mechanical Ventilator 100 07/22/20 21:00 28 101/69 Mechanical Ventilator 100 07/22/20 21:00 101/69 07/22/20 21:00 95 29 101/69 (80) 100 07/22/20 20:58 92 29 100 07/22/20 20:45 93 27 102/74 (83) 100 07/22/20 20:30 94 25 99/69 (79) 100 07/22/20 20:15 93 28 96/60 (72) 100 07/22/20 20:00 Mechanical Ventilator Mechanical Ventilator Mechanical Ventilator 07/22/20 20:00 94 07/22/20 20:00 28 87/70 Mechanical Ventilator 100 07/22/20 20:00 28 87/70 Mechanical Ventilator 100 07/22/20 20:00 87/70 07/22/20 20:00 98.3 93 27 96/66 (76) 100 07/22/20 20:00 100 07/22/20 19:45 93 26 98/67 (77) 100 07/22/20 19:30 92 27 92/69 (77) 100 07/22/20 19:15 92 29 87/62 (70) 100 07/22/20 19:00 94 28 92/66 (75) 100 07/22/20 19:00 28 92/66 Mechanical Ventilator 100 07/22/20 19:00 28 92/66 Mechanical Ventilator 100 07/22/20 19:00 92/66 07/22/20 18:55 94 27 100 07/22/20 18:45 93 34 91/65 (74) 100 07/22/20 18:30 92 34 90/64 (73) 100 07/22/20 18:15 96 34 86/64 (71) 100 07/22/20 18:00 99 34 88/61 (70) 100 07/22/20 18:00 30 88/61 Mechanical Ventilator 100 07/22/20 18:00 30 98/67 Endotracheal Tube 100 07/22/20 18:00 92/69 07/22/20 17:45 99 35 87/62 (70) 100 07/22/20 17:30 100 35 84/64 (71) 100 07/22/20 17:15 101 33 92/62 (72) 100 07/22/20 17:00 30 93/63 Mechanical Ventilator 100 07/22/20 17:00 30 93/63 Mechanical Ventilator 100 07/22/20 17:00 88/61 07/22/20 17:00 101 35 93/63 (73) 100 07/22/20 16:53 98.4 103 36 95/71 (79) 100 07/22/20 16:30 101 33 95/65 (75) 100 07/22/20 16:00 Mechanical Ventilator Mechanical Ventilator Mechanical Ventilator 07/22/20 16:00 110 07/22/20 16:00 29 94/53 Mechanical Ventilator 100 07/22/20 16:00 29 94/53 Mechanical Ventilator 100 07/22/20 16:00 93/63 07/22/20 16:00 100 07/22/20 16:00 105 28 94/47 (63) 100 07/22/20 16:00 Mechanical Ventilator Mechanical Ventilator Mechanical Ventilator 07/22/20 15:00 101 38 100 07/22/20 15:00 31 116/85 Mechanical Ventilator 100 07/22/20 15:00 29 116/85 Mechanical Ventilator 100 07/22/20 15:00 94/53 07/22/20 15:00 122 30 94/53 (67) 100 07/22/20 14:54 31 101/76 Mechanical Ventilator 100 07/22/20 14:30 132 32 101/68 (79) 100 07/22/20 14:00 116/85 07/22/20 14:00 134 35 116/85 (95) 100 07/22/20 13:30 129 36 104/75 (85) 97 07/22/20 13:00 107 14 52/27 (35) 83 07/22/20 13:00 52/27 07/22/20 12:30 109 29 130/70 (90) 100 07/22/20 12:30 52/26 07/22/20 12:15 100 07/22/20 12:00 Mechanical Ventilator Mechanical Ventilator Mechanical Ventilator 07/22/20 12:00 65 38 70/54 (59) 100 07/22/20 12:00 100 07/22/20 12:00 128 07/22/20 11:50 62 54 65 07/22/20 11:00 116 36 121/85 (97) 100 07/22/20 10:00 106 41 144/84 (104) 99 07/22/20 09:00 114 28 65 07/22/20 09:00 97.0 118 30 156/82 (106) 100 07/22/20 08:00 107 07/22/20 08:00 Mechanical Ventilator Mechanical Ventilator Mechanical Ventilator 07/22/20 08:00 50 07/22/20 08:00 110 29 144/89 (107) 99 07/22/20 07:30 89 28 173/81 (111) 98 07/22/20 07:25 102 26 65 07/22/20 07:00 109 28 149/90 (109) 100 07/22/20 06:36 103 33 07/22/20 06:00 107 30 174/85 (114) 100 07/22/20 05:30 108 27 151/77 (101) 100 07/22/20 05:16 105 28 50 07/22/20 05:00 106 29 172/104 (126) 100 07/22/20 04:30 103 30 132/83 (99) 100 07/22/20 04:00 99 26 160/80 (106) 100 07/22/20 04:00 Mechanical Ventilator Mechanical Ventilator Mechanical Ventilator 07/22/20 04:00 102 07/22/20 04:00 50 07/22/20 03:30 102 35 138/79 (98) 100 07/22/20 03:12 99 38 50 07/22/20 03:00 98.6 97 32 140/81 (100) 100 07/22/20 02:30 95 35 135/86 (102) 100 07/22/20 02:00 94 35 153/81 (105) 100 07/22/20 01:30 92 32 133/79 (97) 100 07/22/20 01:11 84 32 50 07/22/20 01:00 95 28 125/78 (94) 100 07/22/20 00:30 92 30 125/73 (90) 100 07/22/20 00:00 101 07/22/20 00:00 50 07/22/20 00:00 98.3 96 33 133/76 (95) 100 07/22/20 00:00 Mechanical Ventilator Mechanical Ventilator Mechanical Ventilator 07/21/20 23:30 93 33 131/79 (96) 100 07/21/20 23:12 95 39 50 07/21/20 23:00 95 32 126/88 (101) 100 07/21/20 22:30 97 29 117/72 (87) 100 07/21/20 22:00 99.0 94 17 122/81 (95) 100 07/21/20 21:30 96 31 138/86 (103) 100 07/21/20 21:06 103 40 50 07/21/20 21:00 92 36 124/87 (99) 100 07/21/20 20:30 101 38 129/82 (98) 100 07/21/20 20:00 Mechanical Ventilator Mechanical Ventilator Mechanical Ventilator 07/21/20 20:00 100 38 133/83 (100) 100 07/21/20 20:00 50 07/21/20 20:00 96 07/21/20 19:30 100 39 126/71 (89) 100 07/21/20 19:16 104 43 50 07/21/20 19:00 97 39 133/74 (93) 100 07/21/20 18:02 115 40 150/90 (110) 100 07/21/20 17:50 134 35 50 07/21/20 17:00 111 42 151/91 (111) 100 07/21/20 16:01 99.2 07/21/20 16:00 118 07/21/20 16:00 Trach Collar Mechanical Ventilator 07/21/20 16:00 116 35 152/82 (105) 100 07/21/20 15:34 129 31 50 07/21/20 15:00 126 40 182/111 (134) 100 07/21/20 14:05 108 56 170/97 (121) 83 07/21/20 13:40 100 07/21/20 13:14 96 37 50 07/21/20 13:00 99 29 138/92 (107) 100 07/21/20 12:00 Trach Collar Mechanical Ventilator 07/21/20 12:00 50 07/21/20 12:00 108 07/21/20 12:00 98.9 108 16 138/84 (102) 90 07/21/20 11:20 50.0 07/21/20 11:02 90 17 137/88 (104) 100 07/21/20 10:30 50 07/21/20 10:00 90 33 131/86 (101) 100 07/21/20 09:02 85 25 128/79 (95) 100 07/21/20 08:25 101 29 50 07/21/20 08:01 50 07/21/20 08:00 98.8 89 27 129/85 (100) 100 07/21/20 08:00 92 07/21/20 08:00 Mechanical Ventilator Mechanical Ventilator 07/21/20 08:00 45 07/21/20 07:24 92 28 50 07/21/20 07:00 93 22 131/84 (100) 100 Intake and Output 07/22/20 07/23/20 19:00 07:00 Intake Total 1010.0 ml 1313.75 ml Output Total 305 ml 342 ml Balance 705.0 ml 971.75 ml Free Water 50 ml IV Total 1010.0 ml 1263.75 ml Output Urine Total 195 ml 305 ml Gastric Drainage Total 100 ml Chest Tube Drainage Total 10 ml 37 ml # Bowel Movements 2 Labs Test 07/21/20 03:36 07/21/20 05:26 07/22/20 01:35 07/22/20 04:02 White Blood Count 12.9 K/UL (4.8-10.8) 16.2 K/UL (4.8-10.8) Red Blood Count 3.15 M/UL (4.20-5.40) 4.08 M/UL (4.20-5.40) Hemoglobin 8.8 G/DL (12.0-16.0) 11.3 G/DL (12.0-16.0) Hematocrit 28.9 % (37.0-47.0) 37.7 % (37.0-47.0) Mean Corpuscular Volume 92 FL (80-99) 93 FL (80-99) Mean Corpuscular Hemoglobin 28.0 PG (27.0-31.0) 27.7 PG (27.0-31.0) Mean Corpuscular Hemoglobin Concent 30.5 G/DL (32.0-36.0) 30.0 G/DL (32.0-36.0) Red Cell Distribution Width 17.0 % (11.6-14.8) 16.8 % (11.6-14.8) Platelet Count 364 K/UL (150-450) 420 K/UL (150-450) Mean Platelet Volume 7.8 FL (6.5-10.1) 7.7 FL (6.5-10.1) Neutrophils (%) (Auto) 65.9 % (45.0-75.0) 68.5 % (45.0-75.0) Lymphocytes (%) (Auto) 23.9 % (20.0-45.0) 19.8 % (20.0-45.0) Monocytes (%) (Auto) 6.0 % (1.0-10.0) 5.6 % (1.0-10.0) Eosinophils (%) (Auto) 3.6 % (0.0-3.0) 5.3 % (0.0-3.0) Basophils (%) (Auto) 0.5 % (0.0-2.0) 0.8 % (0.0-2.0) Sodium Level 138 MMOL/L (136-145) 135 MMOL/L (136-145) Potassium Level 3.8 MMOL/L (3.5-5.1) 4.5 MMOL/L (3.5-5.1) Chloride Level 96 MMOL/L (98-107) 94 MMOL/L (98-107) Carbon Dioxide Level 35 MMOL/L (21-32) 33 MMOL/L (21-32) Anion Gap 7 mmol/L (5-15) 8 mmol/L (5-15) Blood Urea Nitrogen 14 mg/dL (7-18) 15 mg/dL (7-18) Creatinine 0.6 MG/DL (0.55-1.30) 0.6 MG/DL (0.55-1.30) Estimat Glomerular Filtration Rate > 60 mL/min (>60) > 60 mL/min (>60) Glucose Level 130 MG/DL (74-106) 133 MG/DL (74-106) Calcium Level 10.3 MG/DL (8.5-10.1) 11.0 MG/DL (8.5-10.1) Erythrocyte Sedimentation Rate 20 MM/HR (0-20) Prothrombin Time 12.2 SEC (9.30-11.50) Prothromb Time International Ratio 1.1 (0.9-1.1) Phosphorus Level 4.7 MG/DL (2.5-4.9) Magnesium Level 2.0 MG/DL (1.8-2.4) Total Bilirubin 0.5 MG/DL (0.2-1.0) Aspartate Amino Transf (AST/SGOT) 42 U/L (15-37) Alanine Aminotransferase (ALT/SGPT) 24 U/L (12-78) Alkaline Phosphatase 99 U/L (46-116) C-Reactive Protein, Quantitative 8.6 mg/dL (0.00-0.90) Total Protein 9.8 G/DL (6.4-8.2) Albumin 3.6 G/DL (3.4-5.0) Globulin 6.2 g/dL Albumin/Globulin Ratio 0.6 (1.0-2.7) Amylase Level 73 U/L (25-115) Lipase 244 U/L (73-393) Test 07/23/20 03:40 White Blood Count 15.7 K/UL (4.8-10.8) Red Blood Count 3.07 M/UL (4.20-5.40) Hemoglobin 8.4 G/DL (12.0-16.0) Hematocrit 28.0 % (37.0-47.0) Mean Corpuscular Volume 91 FL (80-99) Mean Corpuscular Hemoglobin 27.5 PG (27.0-31.0) Mean Corpuscular Hemoglobin Concent 30.1 G/DL (32.0-36.0) Red Cell Distribution Width 17.1 % (11.6-14.8) Platelet Count 358 K/UL (150-450) Mean Platelet Volume 7.7 FL (6.5-10.1) Neutrophils (%) (Auto) 61.4 % (45.0-75.0) Lymphocytes (%) (Auto) 18.7 % (20.0-45.0) Monocytes (%) (Auto) 10.1 % (1.0-10.0) Eosinophils (%) (Auto) 9.2 % (0.0-3.0) Basophils (%) (Auto) 0.6 % (0.0-2.0) Sodium Level 138 MMOL/L (136-145) Potassium Level 3.8 MMOL/L (3.5-5.1) Chloride Level 98 MMOL/L (98-107) Carbon Dioxide Level 34 MMOL/L (21-32) Anion Gap 6 mmol/L (5-15) Blood Urea Nitrogen 20 mg/dL (7-18) Creatinine 0.7 MG/DL (0.55-1.30) Estimat Glomerular Filtration Rate > 60 mL/min (>60) Glucose Level 106 MG/DL (74-106) Uric Acid 6.3 MG/DL (2.6-7.2) Calcium Level 10.1 MG/DL (8.5-10.1) Phosphorus Level 3.0 MG/DL (2.5-4.9) Magnesium Level 1.8 MG/DL (1.8-2.4) Total Bilirubin 0.3 MG/DL (0.2-1.0) Aspartate Amino Transf (AST/SGOT) 54 U/L (15-37) Alanine Aminotransferase (ALT/SGPT) 37 U/L (12-78) Alkaline Phosphatase 63 U/L (46-116) Total Protein 7.1 G/DL (6.4-8.2) Albumin 2.6 G/DL (3.4-5.0) Globulin 4.5 g/dL Albumin/Globulin Ratio 0.6 (1.0-2.7) Height (Feet): 5 Height (Inches): 5.00 Weight (Pounds): 223 Objective GeNL: nv HEENT: ngt++ Pulm: vent/trach++ CV: rrr Abd: soft, nt, nd Ext: no cce Myron Condon MD Jul 23, 2020 06:41
[2020-07-23] MEDS: Versed 100mg/NS 200ml 200 ML IV PRN ×3 (07:00→23:04)
--- NOTE | 2020-07-23 07:12 | NUR ---
Report given to RAKEL Reyes who assumed care of patient.
--- NOTE | 2020-07-23 07:30 | NUR ---
RESPIRATORY NOTE: PT received on AC/VC: 15, 400 100%,+5. Alarms are on and audible. Vent circuit is secure and out of the way. Airway is secure and patent. No s/s of acute respiratory distress noted at this time. Will continue to closely monitor.
--- NOTE | 2020-07-23 07:43 | Cardiac Electrophysiology PN ---
Assessment/Plan Assessment/Plan 1. Respiratory failure due to COVID-19 pneumonia. On tracheostomy on 100 % Fio2. Trach exchanged 07/22/[address] Devine Echo EF 60% 2. S/P Code x2 with hypotension and sammy arrest on 07/22/20 likely due to Pneumothorax No further after chest tube. HR stable and on LEvo only 4 Mcg 3. Right Pneumothorax, S/P chest tube placement 4. Hypotension, on midodrine 10 mg 3 times daily and Levophed 4 mcg 5. Dysphagia. PEG postponed for possible SBO. NGT to suction. 6. Right lower extremity DVT. Follow up by Hematology. May need IVC filter placement. TOAN RN and Dr Devine Subjective Subjective In ICU on the Vent on 100% Fio2 in SR. Coded twice for hypotension and bradycardia while on the Vent about 20 minutes after tracheostomy was changed yesterday Found to have Right Pneumothorax and underwent Right chest tube placement by Dr Devine Objective Last 24 Hour Vital Signs Date Time Temp Pulse Resp B/P (MAP) Pulse Ox O2 Delivery O2 Flow Rate FiO2 07/23/20 07:00 24 91/58 Mechanical Ventilator 100 07/23/20 07:00 24 95/60 Mechanical Ventilator 100 07/23/20 07:00 91/58 07/23/20 06:32 92 28 07/23/20 06:00 26 97/59 Mechanical Ventilator 100 07/23/20 06:00 26 97/59 Mechanical Ventilator 100 07/23/20 06:00 97/59 07/23/20 06:00 98.0 93 26 97/59 (72) 100 07/23/20 05:45 95 23 99/59 (72) 100 07/23/20 05:30 92 23 109/64 (79) 100 07/23/20 05:15 92 26 100 07/23/20 05:15 91 25 104/65 (78) 100 07/23/20 05:00 91 26 104/68 (80) 100 07/23/20 05:00 26 104/68 Mechanical Ventilator 100 07/23/20 05:00 26 104/68 Endotracheal Tube 100 07/23/20 05:00 104/68 07/23/20 04:45 92 25 105/66 (79) 100 07/23/20 04:30 93 26 105/64 (78) 100 07/23/20 04:15 91 27 108/68 (81) 100 07/23/20 04:08 106/65 07/23/20 04:00 98.9 91 26 106/65 (79) 100 07/23/20 04:00 91 07/23/20 04:00 26 108/68 Mechanical Ventilator 100 07/23/20 04:00 26 108/68 Mechanical Ventilator 100 07/23/20 04:00 108/68 07/23/20 04:00 100 07/23/20 04:00 Mechanical Ventilator Mechanical Ventilator Mechanical Ventilator 07/23/20 03:45 92 22 108/69 (82) 100 07/23/20 03:30 92 26 103/66 (78) 100 07/23/20 03:15 91 26 101/63 (76) 100 07/23/20 03:10 91 25 100 07/23/20 03:00 26 101/63 Mechanical Ventilator 100 07/23/20 03:00 26 101/63 Mechanical Ventilator 100 07/23/20 03:00 101/63 07/23/20 03:00 91 27 103/65 (78) 100 07/23/20 02:45 91 28 104/65 (78) 100 07/23/20 02:30 91 29 106/68 (81) 100 07/23/20 02:15 90 20 109/69 (82) 100 07/23/20 02:00 24 109/69 Mechanical Ventilator 100 07/23/20 02:00 24 109/69 Mechanical Ventilator 100 07/23/20 02:00 109/69 07/23/20 02:00 92 20 104/68 (80) 100 07/23/20 01:45 92 20 107/72 (84) 100 07/23/20 01:30 103 20 99/61 (74) 100 07/23/20 01:15 95 20 112/69 (83) 100 07/23/20 01:04 92 26 100 07/23/20 01:00 91 20 105/67 (80) 100 07/23/20 01:00 20 112/69 Mechanical Ventilator 100 07/23/20 01:00 20 112/69 Mechanical Ventilator 100 07/23/20 01:00 112/69 07/23/20 00:45 91 20 105/69 (81) 100 07/23/20 00:30 90 20 101/70 (80) 100 07/23/20 00:15 91 22 103/68 (80) 100 07/23/20 00:00 98.5 92 12 107/68 (81) 100 07/23/20 00:00 19 103/68 Mechanical Ventilator 100 07/23/20 00:00 20 103/68 Mechanical Ventilator 100 07/23/20 00:00 103/68 07/23/20 00:00 92 07/23/20 00:00 Mechanical Ventilator Mechanical Ventilator Mechanical Ventilator 07/22/20 23:52 23 101/69 Mechanical Ventilator 100 07/22/20 23:45 92 25 102/66 (78) 100 07/22/20 23:30 91 23 104/68 (80) 100 07/22/20 23:15 92 31 106/69 (81) 100 07/22/20 23:00 93 23 103/69 (80) 100 07/22/20 23:00 23 103/69 Mechanical Ventilator 100 07/22/20 23:00 23 103/69 Mechanical Ventilator 100 07/22/20 23:00 103/69 07/22/20 22:57 93 26 100 07/22/20 22:45 93 35 101/67 (78) 100 07/22/20 22:30 94 33 102/64 (77) 100 07/22/20 22:15 93 31 99/68 (78) 100 07/22/20 22:00 33 101/67 Mechanical Ventilator 100 07/22/20 22:00 33 101/67 Mechanical Ventilator 100 07/22/20 22:00 101/67 07/22/20 22:00 94 33 101/67 (78) 100 07/22/20 21:45 96 34 96/64 (75) 100 07/22/20 21:30 98 29 97/60 (72) 100 07/22/20 21:15 99 33 97/58 (71) 100 07/22/20 21:00 29 101/69 Mechanical Ventilator 100 07/22/20 21:00 28 101/69 Mechanical Ventilator 100 07/22/20 21:00 101/69 07/22/20 21:00 95 29 101/69 (80) 100 07/22/20 20:58 92 29 100 07/22/20 20:45 93 27 102/74 (83) 100 07/22/20 20:30 94 25 99/69 (79) 100 07/22/20 20:15 93 28 96/60 (72) 100 07/22/20 20:00 Mechanical Ventilator Mechanical Ventilator Mechanical Ventilator 07/22/20 20:00 94 07/22/20 20:00 28 87/70 Mechanical Ventilator 100 07/22/20 20:00 28 87/70 Mechanical Ventilator 100 07/22/20 20:00 87/70 07/22/20 20:00 98.3 93 27 96/66 (76) 100 07/22/20 20:00 100 07/22/20 19:45 93 26 98/67 (77) 100 07/22/20 19:30 92 27 92/69 (77) 100 07/22/20 19:15 92 29 87/62 (70) 100 07/22/20 19:00 94 28 92/66 (75) 100 07/22/20 19:00 28 92/66 Mechanical Ventilator 100 07/22/20 19:00 28 92/66 Mechanical Ventilator 100 07/22/20 19:00 92/66 07/22/20 18:55 94 27 100 07/22/20 18:45 93 34 91/65 (74) 100 07/22/20 18:30 92 34 90/64 (73) 100 07/22/20 18:15 96 34 86/64 (71) 100 07/22/20 18:00 99 34 88/61 (70) 100 07/22/20 18:00 30 88/61 Mechanical Ventilator 100 07/22/20 18:00 30 98/67 Endotracheal Tube 100 07/22/20 18:00 92/69 07/22/20 17:45 99 35 87/62 (70) 100 07/22/20 17:30 100 35 84/64 (71) 100 07/22/20 17:15 101 33 92/62 (72) 100 07/22/20 17:00 30 93/63 Mechanical Ventilator 100 07/22/20 17:00 30 93/63 Mechanical Ventilator 100 07/22/20 17:00 88/61 07/22/20 17:00 101 35 93/63 (73) 100 07/22/20 16:53 98.4 103 36 95/71 (79) 100 07/22/20 16:30 101 33 95/65 (75) 100 07/22/20 16:00 Mechanical Ventilator Mechanical Ventilator Mechanical Ventilator 07/22/20 16:00 110 07/22/20 16:00 29 94/53 Mechanical Ventilator 100 07/22/20 16:00 29 94/53 Mechanical Ventilator 100 07/22/20 16:00 93/63 07/22/20 16:00 100 07/22/20 16:00 105 28 94/47 (63) 100 07/22/20 16:00 Mechanical Ventilator Mechanical Ventilator Mechanical Ventilator 07/22/20 15:00 101 38 100 07/22/20 15:00 31 116/85 Mechanical Ventilator 100 07/22/20 15:00 29 116/85 Mechanical Ventilator 100 07/22/20 15:00 94/53 07/22/20 15:00 122 30 94/53 (67) 100 07/22/20 14:54 31 101/76 Mechanical Ventilator 100 07/22/20 14:30 132 32 101/68 (79) 100 07/22/20 14:00 116/85 07/22/20 14:00 134 35 116/85 (95) 100 07/22/20 13:30 129 36 104/75 (85) 97 07/22/20 13:00 107 14 52/27 (35) 83 07/22/20 13:00 52/27 07/22/20 12:30 109 29 130/70 (90) 100 07/22/20 12:30 52/26 07/22/20 12:15 100 07/22/20 12:00 Mechanical Ventilator Mechanical Ventilator Mechanical Ventilator 07/22/20 12:00 65 38 70/54 (59) 100 07/22/20 12:00 100 07/22/20 12:00 128 07/22/20 11:50 62 54 65 07/22/20 11:00 116 36 121/85 (97) 100 07/22/20 10:00 106 41 144/84 (104) 99 07/22/20 09:00 114 28 65 07/22/20 09:00 97.0 118 30 156/82 (106) 100 07/22/20 08:00 107 07/22/20 08:00 Mechanical Ventilator Mechanical Ventilator Mechanical Ventilator 07/22/20 08:00 50 07/22/20 08:00 110 29 144/89 (107) 99 Intake and Output 07/22/20 07/23/20 19:00 07:00 Intake Total 1010.0 ml 1411.25 ml Output Total 305 ml 342 ml Balance 705.0 ml 1069.25 ml Free Water 50 ml IV Total 1010.0 ml 1361.25 ml Output Urine Total 195 ml 305 ml Gastric Drainage Total 100 ml Chest Tube Drainage Total 10 ml 37 ml # Bowel Movements 2 Laboratory Tests Test 07/23/20 03:40 White Blood Count 15.7 K/UL (4.8-10.8) H Red Blood Count 3.07 M/UL (4.20-5.40) L Hemoglobin 8.4 G/DL (12.0-16.0) L Hematocrit 28.0 % (37.0-47.0) L Mean Corpuscular Volume 91 FL (80-99) Mean Corpuscular Hemoglobin 27.5 PG (27.0-31.0) Mean Corpuscular Hemoglobin Concent 30.1 G/DL (32.0-36.0) L Red Cell Distribution Width 17.1 % (11.6-14.8) H Platelet Count 358 K/UL (150-450) Mean Platelet Volume 7.7 FL (6.5-10.1) Neutrophils (%) (Auto) 61.4 % (45.0-75.0) Lymphocytes (%) (Auto) 18.7 % (20.0-45.0) L Monocytes (%) (Auto) 10.1 % (1.0-10.0) H Eosinophils (%) (Auto) 9.2 % (0.0-3.0) H Basophils (%) (Auto) 0.6 % (0.0-2.0) Sodium Level 138 MMOL/L (136-145) Potassium Level 3.8 MMOL/L (3.5-5.1) Chloride Level 98 MMOL/L (98-107) Carbon Dioxide Level 34 MMOL/L (21-32) H Anion Gap 6 mmol/L (5-15) Blood Urea Nitrogen 20 mg/dL (7-18) H Creatinine 0.7 MG/DL (0.55-1.30) Estimat Glomerular Filtration Rate > 60 mL/min (>60) Glucose Level 106 MG/DL (74-106) Uric Acid 6.3 MG/DL (2.6-7.2) Calcium Level 10.1 MG/DL (8.5-10.1) Phosphorus Level 3.0 MG/DL (2.5-4.9) Magnesium Level 1.8 MG/DL (1.8-2.4) Total Bilirubin 0.3 MG/DL (0.2-1.0) Aspartate Amino Transf (AST/SGOT) 54 U/L (15-37) H Alanine Aminotransferase (ALT/SGPT) 37 U/L (12-78) Alkaline Phosphatase 63 U/L (46-116) Total Protein 7.1 G/DL (6.4-8.2) Albumin 2.6 G/DL (3.4-5.0) L Globulin 4.5 g/dL Albumin/Globulin Ratio 0.6 (1.0-2.7) L Objective HEAD AND NECK: Status post tracheostomy. NGT in place LUNGS: Coarse rhonchi.Right chest tube is in CARDIOVASCULAR: Regular S1 and S2 with no gallop. ABDOMEN: Soft. EXTREMITIES: 1+ pitting edema. Hill Burger MD Jul 23, 2020 07:43
[2020-07-23] MEDS: fentaNYL 2500mcg/NS 250ml 250 ML IV PRN (08:00)
--- NOTE | 2020-07-23 08:44 | NUR ---
RESPIRATORY NOTE: FiO2 decreased to 70%. PT tolerating well. Amy ELLINGTON aware.
[2020-07-23] MEDS: Enoxaparin 120 mg inj SUBQ SCH ×2 (09:17→20:19)
--- NOTE | 2020-07-23 09:19 | NUR ---
RESPIRATORY NOTE: FiO2 decreased to 60%. PT tolerating well. Amy ELLINGTON aware.
--- NOTE | 2020-07-23 10:29 | Pulmonology Progress Note ---
Subjective ROS Limited/Unobtainable: No Interval Events: Events noted; required R CT after code yesterday. Also trach changed to 7 Constitutional: Reports: fever, other - resolved HEENT: Repors: no symptoms Respiratory: Reports: no symptoms Cardiovascular: Reports: no symptoms Gastrointestinal/Abdominal: Reports: vomiting Genitourinary: Reports: no symptoms Allergies: Coded Allergies: No Known Allergies (Unverified , 05/28/20) All Systems: reviewed and negative except above Objective Last 24 Hour Vital Signs Date Time Temp Pulse Resp B/P (MAP) Pulse Ox O2 Delivery O2 Flow Rate FiO2 07/23/20 10:00 97 27 88/53 (65) 97 07/23/20 09:45 95 28 81/48 (59) 98 07/23/20 09:30 97 24 96/54 (68) 97 07/23/20 09:15 93 27 101/66 (78) 98 07/23/20 09:00 92 31 96/60 (72) 100 07/23/20 08:45 90 15 98/65 (76) 100 07/23/20 08:30 89 27 102/59 (73) 100 07/23/20 08:15 88 21 98/64 (75) 100 07/23/20 08:00 99.0 89 29 99/59 (72) 100 07/23/20 08:00 28 99/59 Mechanical Ventilator 100 07/23/20 08:00 26 98/64 Mechanical Ventilator 100 07/23/20 08:00 98/64 07/23/20 08:00 93 07/23/20 07:30 89 24 91/58 (69) 100 07/23/20 07:15 90 26 95/60 (72) 100 07/23/20 07:00 91 26 91/58 (69) 100 07/23/20 07:00 24 91/58 Mechanical Ventilator 100 07/23/20 07:00 24 95/60 Mechanical Ventilator 100 07/23/20 07:00 91/58 07/23/20 06:32 92 28 07/23/20 06:00 26 97/59 Mechanical Ventilator 100 07/23/20 06:00 26 97/59 Mechanical Ventilator 100 07/23/20 06:00 97/59 07/23/20 06:00 98.0 93 26 97/59 (72) 100 07/23/20 05:45 95 23 99/59 (72) 100 07/23/20 05:30 92 23 109/64 (79) 100 07/23/20 05:15 92 26 100 07/23/20 05:15 91 25 104/65 (78) 100 07/23/20 05:00 91 26 104/68 (80) 100 07/23/20 05:00 26 104/68 Mechanical Ventilator 100 07/23/20 05:00 26 104/68 Endotracheal Tube 100 07/23/20 05:00 104/68 07/23/20 04:45 92 25 105/66 (79) 100 07/23/20 04:30 93 26 105/64 (78) 100 07/23/20 04:15 91 27 108/68 (81) 100 07/23/20 04:08 106/65 07/23/20 04:00 98.9 91 26 106/65 (79) 100 07/23/20 04:00 91 07/23/20 04:00 26 108/68 Mechanical Ventilator 100 07/23/20 04:00 26 108/68 Mechanical Ventilator 100 07/23/20 04:00 108/68 07/23/20 04:00 100 07/23/20 04:00 Mechanical Ventilator Mechanical Ventilator Mechanical Ventilator 07/23/20 03:45 92 22 108/69 (82) 100 07/23/20 03:30 92 26 103/66 (78) 100 07/23/20 03:15 91 26 101/63 (76) 100 07/23/20 03:10 91 25 100 07/23/20 03:00 26 101/63 Mechanical Ventilator 100 07/23/20 03:00 26 101/63 Mechanical Ventilator 100 07/23/20 03:00 101/63 07/23/20 03:00 91 27 103/65 (78) 100 07/23/20 02:45 91 28 104/65 (78) 100 07/23/20 02:30 91 29 106/68 (81) 100 07/23/20 02:15 90 20 109/69 (82) 100 07/23/20 02:00 24 109/69 Mechanical Ventilator 100 07/23/20 02:00 24 109/69 Mechanical Ventilator 100 07/23/20 02:00 109/69 07/23/20 02:00 92 20 104/68 (80) 100 07/23/20 01:45 92 20 107/72 (84) 100 07/23/20 01:30 103 20 99/61 (74) 100 07/23/20 01:15 95 20 112/69 (83) 100 07/23/20 01:04 92 26 100 07/23/20 01:00 91 20 105/67 (80) 100 07/23/20 01:00 20 112/69 Mechanical Ventilator 100 07/23/20 01:00 20 112/69 Mechanical Ventilator 100 07/23/20 01:00 112/69 07/23/20 00:45 91 20 105/69 (81) 100 07/23/20 00:30 90 20 101/70 (80) 100 07/23/20 00:15 91 22 103/68 (80) 100 07/23/20 00:00 98.5 92 12 107/68 (81) 100 07/23/20 00:00 19 103/68 Mechanical Ventilator 100 07/23/20 00:00 20 103/68 Mechanical Ventilator 100 07/23/20 00:00 103/68 07/23/20 00:00 92 07/23/20 00:00 Mechanical Ventilator Mechanical Ventilator Mechanical Ventilator 07/22/20 23:52 23 101/69 Mechanical Ventilator 100 07/22/20 23:45 92 25 102/66 (78) 100 07/22/20 23:30 91 23 104/68 (80) 100 07/22/20 23:15 92 31 106/69 (81) 100 07/22/20 23:00 93 23 103/69 (80) 100 07/22/20 23:00 23 103/69 Mechanical Ventilator 100 07/22/20 23:00 23 103/69 Mechanical Ventilator 100 07/22/20 23:00 103/69 07/22/20 22:57 93 26 100 07/22/20 22:45 93 35 101/67 (78) 100 07/22/20 22:30 94 33 102/64 (77) 100 07/22/20 22:15 93 31 99/68 (78) 100 07/22/20 22:00 33 101/67 Mechanical Ventilator 100 07/22/20 22:00 33 101/67 Mechanical Ventilator 100 07/22/20 22:00 101/67 07/22/20 22:00 94 33 101/67 (78) 100 07/22/20 21:45 96 34 96/64 (75) 100 07/22/20 21:30 98 29 97/60 (72) 100 07/22/20 21:15 99 33 97/58 (71) 100 07/22/20 21:00 29 101/69 Mechanical Ventilator 100 07/22/20 21:00 28 101/69 Mechanical Ventilator 100 07/22/20 21:00 101/69 07/22/20 21:00 95 29 101/69 (80) 100 07/22/20 20:58 92 29 100 07/22/20 20:45 93 27 102/74 (83) 100 07/22/20 20:30 94 25 99/69 (79) 100 07/22/20 20:15 93 28 96/60 (72) 100 07/22/20 20:00 Mechanical Ventilator Mechanical Ventilator Mechanical Ventilator 07/22/20 20:00 94 07/22/20 20:00 28 87/70 Mechanical Ventilator 100 07/22/20 20:00 28 87/70 Mechanical Ventilator 100 07/22/20 20:00 87/70 07/22/20 20:00 98.3 93 27 96/66 (76) 100 07/22/20 20:00 100 07/22/20 19:45 93 26 98/67 (77) 100 07/22/20 19:30 92 27 92/69 (77) 100 07/22/20 19:15 92 29 87/62 (70) 100 07/22/20 19:00 94 28 92/66 (75) 100 07/22/20 19:00 28 92/66 Mechanical Ventilator 100 07/22/20 19:00 28 92/66 Mechanical Ventilator 100 07/22/20 19:00 92/66 07/22/20 18:55 94 27 100 07/22/20 18:45 93 34 91/65 (74) 100 07/22/20 18:30 92 34 90/64 (73) 100 07/22/20 18:15 96 34 86/64 (71) 100 07/22/20 18:00 99 34 88/61 (70) 100 07/22/20 18:00 30 88/61 Mechanical Ventilator 100 07/22/20 18:00 30 98/67 Endotracheal Tube 100 07/22/20 18:00 92/69 07/22/20 17:45 99 35 87/62 (70) 100 07/22/20 17:30 100 35 84/64 (71) 100 07/22/20 17:15 101 33 92/62 (72) 100 07/22/20 17:00 30 93/63 Mechanical Ventilator 100 07/22/20 17:00 30 93/63 Mechanical Ventilator 100 07/22/20 17:00 88/61 07/22/20 17:00 101 35 93/63 (73) 100 07/22/20 16:53 98.4 103 36 95/71 (79) 100 07/22/20 16:30 101 33 95/65 (75) 100 07/22/20 16:00 Mechanical Ventilator Mechanical Ventilator Mechanical Ventilator 07/22/20 16:00 110 07/22/20 16:00 29 94/53 Mechanical Ventilator 100 07/22/20 16:00 29 94/53 Mechanical Ventilator 100 07/22/20 16:00 93/63 07/22/20 16:00 100 07/22/20 16:00 105 28 94/47 (63) 100 07/22/20 16:00 Mechanical Ventilator Mechanical Ventilator Mechanical Ventilator 07/22/20 15:00 101 38 100 07/22/20 15:00 31 116/85 Mechanical Ventilator 100 07/22/20 15:00 29 116/85 Mechanical Ventilator 100 07/22/20 15:00 94/53 07/22/20 15:00 122 30 94/53 (67) 100 07/22/20 14:54 31 101/76 Mechanical Ventilator 100 07/22/20 14:30 132 32 101/68 (79) 100 07/22/20 14:00 116/85 07/22/20 14:00 134 35 116/85 (95) 100 07/22/20 13:30 129 36 104/75 (85) 97 07/22/20 13:00 107 14 52/27 (35) 83 07/22/20 13:00 52/27 07/22/20 12:30 109 29 130/70 (90) 100 07/22/20 12:30 52/26 07/22/20 12:15 100 07/22/20 12:00 Mechanical Ventilator Mechanical Ventilator Mechanical Ventilator 07/22/20 12:00 65 38 70/54 (59) 100 07/22/20 12:00 100 07/22/20 12:00 128 07/22/20 11:50 62 54 65 07/22/20 11:00 116 36 121/85 (97) 100 Intake and Output 07/22/20 07/23/20 19:00 07:00 Intake Total 1010.0 ml 1411.25 ml Output Total 305 ml 367 ml Balance 705.0 ml 1044.25 ml Free Water 50 ml IV Total 1010.0 ml 1361.25 ml Output Urine Total 195 ml 330 ml Gastric Drainage Total 100 ml Chest Tube Drainage Total 10 ml 37 ml # Bowel Movements 2 General Appearance: no acute distress HEENT: normocephalic, status post trach Respiratory: chest wall non-tender Cardiovascular: normal peripheral pulses Abdomen: normal bowel sounds Laboratory Tests 07/23/20 03:40: White Blood Count 15.7H, Red Blood Count 3.07L, Hemoglobin 8.4L, Hematocrit 28.0L, Mean Corpuscular Volume 91, Mean Corpuscular Hemoglobin 27.5, Mean Corpuscular Hemoglobin Concent 30.1L, Red Cell Distribution Width 17.1H, Platelet Count 358, Mean Platelet Volume 7.7, Neutrophils (%) (Auto) 61.4, Lymphocytes (%) (Auto) 18.7L, Monocytes (%) (Auto) 10.1H, Eosinophils (%) (Auto) 9.2H, Basophils (%) (Auto) 0.6, Sodium Level 138, Potassium Level 3.8, Chloride Level 98, Carbon Dioxide Level 34H, Anion Gap 6, Blood Urea Nitrogen 20H, Creatinine 0.7, Estimat Glomerular Filtration Rate > 60, Glucose Level 106, Uric Acid 6.3, Calcium Level 10.1, Phosphorus Level 3.0, Magnesium Level 1.8, Total Bilirubin 0.3, Aspartate Amino Transf (AST/SGOT) 54H, Alanine Aminotransferase (ALT/SGPT) 37, Alkaline Phosphatase 63, Total Protein 7.1, Albumin 2.6L, Globulin 4.5, Albumin/Globulin Ratio 0.6L Current Medications Medications (Trade) Dose Ordered Sig/Zelda Route PRN Reason Start Time Stop Time Status Last Admin Dose Admin Acetaminophen (Tylenol) 650 mg Q4H PRN NG Temp >100.5 06/29/20 10:15 07/29/20 10:14 07/20/20 18:12 Acetaminophen (Tylenol) 650 mg Q6H PRN NG Mild Pain (Pain Scale 1-3) 06/29/20 10:15 07/29/20 10:14 07/22/20 11:56 Calcitonin [place] (Miacalcin) 1 sprays DAILY NASAL 07/22/20 14:00 10/20/20 13:59 07/23/20 09:13 Chlorhexidine Gluconate (Inna-Hex 2%) 1 applic DAILY@2000 TOPIC 07/20/20 20:00 10/18/20 19:59 07/22/20 20:37 Dextrose (Dextrose 50%) 25 ml Q30M PRN IV Hypoglycemia 06/05/20 10:45 09/03/20 10:44 Dextrose (Dextrose 50%) 50 ml Q30M PRN IV Hypoglycemia 06/05/20 10:45 09/03/20 10:44 Dextrose/Sodium Chloride 1,000 ml @ 75 mls/hr [id number] IV 07/20/20 12:30 08/19/20 12:29 07/23/20 05:00 Enoxaparin Sodium (Lovenox) 110 mg EVERY 12 HOURS SUBQ 07/17/20 21:00 10/15/20 20:59 07/23/20 09:17 Fentanyl Citrate 250 ml @ 0 mls/hr Q24H PRN IV . 07/22/20 14:00 07/24/20 13:59 07/23/20 08:00 Guaifenesin/ Codeine Phosphate (Robitussin with codeine) 5 ml Q6H PRN NG For Cough 07/14/20 14:15 08/13/20 14:14 07/18/20 21:44 Lansoprazole (Prevacid) 30 mg DAILY GT 07/18/20 09:00 08/09/20 08:59 07/23/20 09:12 Meropenem 1 gm/ Sodium Chloride 55 ml @ 110 mls/hr Q8H IVPB 07/22/20 12:00 07/27/20 11:59 07/23/20 04:08 Midazolam HCl 200 ml @ 0 mls/hr Q24H PRN IV sedation 07/22/20 14:06 07/29/20 14:05 07/23/20 07:00 Midodrine (Pro-Amatine) 10 mg Q8HR GT 06/30/20 14:00 09/12/20 13:59 07/23/20 06:16 Norepinephrine Bitartrate 8 mg/ Dextrose 250 ml @ 0 mls/hr Q24H IV 07/22/20 13:00 07/25/20 12:59 07/23/20 04:08 Quetiapine Fumarate (SEROqueL) 50 mg Q12HR GT 07/16/20 13:30 08/30/20 13:29 07/23/20 09:12 Assessment/Plan Assessment/Plan 1. COVID-19 pneumonia -Intubated 05/28/20 - We will continue broad-spectrum antibiotics. -s/p solumedrol, Rocephin -Continue PEEP 6 ->7 ->5 - Peak airway pressures better - FiO2 100% -> 90 ->80->60 ->40 ->80 ->100 ->70 ->60 -> 50 ->45 ->40 ->50%; PEEP 7 ->5 -will continue OGT feeding 2. Hyponatremia -Per primary MD 3. Elevated inflammatory markers - has high D dimer; On Lovenox 4. DVT of the right calf - once stable, consider IVC filter per heme 5. Decreased PEEP S/p trach Reported cuff leak per RN/RT Changed 07/22/20 however still has cuff leak On low dose Levophed; will attempt to wean off Will wean off IV sedation; started Seroquel Needs PEG; PEG held given new onset SBO vs ileus Required R CT due to PTX 07/22/20 Javier Nava MD Jul 23, 2020 10:29
--- NOTE | 2020-07-23 10:35 | NUR ---
RESPIRATORY NOTE: ABG drawn at this time. Results reported to Amy ELLINGTON.
--- NOTE | 2020-07-23 10:51 | Surgery Progress Note ---
Surgery Progress Note Subjective Procedure Performed right tube chest tube insertion Additional Comments am cxr reviewed ptx resolved hd stable now good saturation chest tube okay and functional cont chest tube to suction Objective Last 24 Hour Vital Signs Date Time Temp Pulse Resp B/P (MAP) Pulse Ox O2 Delivery O2 Flow Rate FiO2 07/23/20 10:00 97 27 88/53 (65) 97 07/23/20 09:45 95 28 81/48 (59) 98 07/23/20 09:30 97 24 96/54 (68) 97 07/23/20 09:15 93 27 101/66 (78) 98 07/23/20 09:00 92 31 96/60 (72) 100 07/23/20 08:45 90 15 98/65 (76) 100 07/23/20 08:30 89 27 102/59 (73) 100 07/23/20 08:15 88 21 98/64 (75) 100 07/23/20 08:00 99.0 89 29 99/59 (72) 100 07/23/20 08:00 28 99/59 Mechanical Ventilator 100 07/23/20 08:00 26 98/64 Mechanical Ventilator 100 07/23/20 08:00 98/64 07/23/20 08:00 93 07/23/20 07:30 89 24 91/58 (69) 100 07/23/20 07:15 90 26 95/60 (72) 100 07/23/20 07:00 91 26 91/58 (69) 100 07/23/20 07:00 24 91/58 Mechanical Ventilator 100 07/23/20 07:00 24 95/60 Mechanical Ventilator 100 07/23/20 07:00 91/58 07/23/20 06:32 92 28 07/23/20 06:00 26 97/59 Mechanical Ventilator 100 07/23/20 06:00 26 97/59 Mechanical Ventilator 100 07/23/20 06:00 97/59 07/23/20 06:00 98.0 93 26 97/59 (72) 100 07/23/20 05:45 95 23 99/59 (72) 100 07/23/20 05:30 92 23 109/64 (79) 100 07/23/20 05:15 92 26 100 07/23/20 05:15 91 25 104/65 (78) 100 07/23/20 05:00 91 26 104/68 (80) 100 07/23/20 05:00 26 104/68 Mechanical Ventilator 100 07/23/20 05:00 26 104/68 Endotracheal Tube 100 07/23/20 05:00 104/68 07/23/20 04:45 92 25 105/66 (79) 100 07/23/20 04:30 93 26 105/64 (78) 100 07/23/20 04:15 91 27 108/68 (81) 100 07/23/20 04:08 106/65 07/23/20 04:00 98.9 91 26 106/65 (79) 100 07/23/20 04:00 91 07/23/20 04:00 26 108/68 Mechanical Ventilator 100 07/23/20 04:00 26 108/68 Mechanical Ventilator 100 07/23/20 04:00 108/68 07/23/20 04:00 100 07/23/20 04:00 Mechanical Ventilator Mechanical Ventilator Mechanical Ventilator 07/23/20 03:45 92 22 108/69 (82) 100 07/23/20 03:30 92 26 103/66 (78) 100 07/23/20 03:15 91 26 101/63 (76) 100 07/23/20 03:10 91 25 100 07/23/20 03:00 26 101/63 Mechanical Ventilator 100 07/23/20 03:00 26 101/63 Mechanical Ventilator 100 07/23/20 03:00 101/63 07/23/20 03:00 91 27 103/65 (78) 100 07/23/20 02:45 91 28 104/65 (78) 100 07/23/20 02:30 91 29 106/68 (81) 100 07/23/20 02:15 90 20 109/69 (82) 100 07/23/20 02:00 24 109/69 Mechanical Ventilator 100 07/23/20 02:00 24 109/69 Mechanical Ventilator 100 07/23/20 02:00 109/69 07/23/20 02:00 92 20 104/68 (80) 100 07/23/20 01:45 92 20 107/72 (84) 100 07/23/20 01:30 103 20 99/61 (74) 100 07/23/20 01:15 95 20 112/69 (83) 100 07/23/20 01:04 92 26 100 07/23/20 01:00 91 20 105/67 (80) 100 07/23/20 01:00 20 112/69 Mechanical Ventilator 100 07/23/20 01:00 20 112/69 Mechanical Ventilator 100 07/23/20 01:00 112/69 07/23/20 00:45 91 20 105/69 (81) 100 07/23/20 00:30 90 20 101/70 (80) 100 07/23/20 00:15 91 22 103/68 (80) 100 07/23/20 00:00 98.5 92 12 107/68 (81) 100 07/23/20 00:00 19 103/68 Mechanical Ventilator 100 07/23/20 00:00 20 103/68 Mechanical Ventilator 100 07/23/20 00:00 103/68 07/23/20 00:00 92 07/23/20 00:00 Mechanical Ventilator Mechanical Ventilator Mechanical Ventilator 07/22/20 23:52 23 101/69 Mechanical Ventilator 100 07/22/20 23:45 92 25 102/66 (78) 100 07/22/20 23:30 91 23 104/68 (80) 100 07/22/20 23:15 92 31 106/69 (81) 100 07/22/20 23:00 93 23 103/69 (80) 100 07/22/20 23:00 23 103/69 Mechanical Ventilator 100 07/22/20 23:00 23 103/69 Mechanical Ventilator 100 07/22/20 23:00 103/69 07/22/20 22:57 93 26 100 07/22/20 22:45 93 35 101/67 (78) 100 07/22/20 22:30 94 33 102/64 (77) 100 07/22/20 22:15 93 31 99/68 (78) 100 07/22/20 22:00 33 101/67 Mechanical Ventilator 100 07/22/20 22:00 33 101/67 Mechanical Ventilator 100 07/22/20 22:00 101/67 07/22/20 22:00 94 33 101/67 (78) 100 07/22/20 21:45 96 34 96/64 (75) 100 07/22/20 21:30 98 29 97/60 (72) 100 07/22/20 21:15 99 33 97/58 (71) 100 07/22/20 21:00 29 101/69 Mechanical Ventilator 100 07/22/20 21:00 28 101/69 Mechanical Ventilator 100 07/22/20 21:00 101/69 07/22/20 21:00 95 29 101/69 (80) 100 07/22/20 20:58 92 29 100 07/22/20 20:45 93 27 102/74 (83) 100 07/22/20 20:30 94 25 99/69 (79) 100 07/22/20 20:15 93 28 96/60 (72) 100 07/22/20 20:00 Mechanical Ventilator Mechanical Ventilator Mechanical Ventilator 07/22/20 20:00 94 07/22/20 20:00 28 87/70 Mechanical Ventilator 100 07/22/20 20:00 28 87/70 Mechanical Ventilator 100 07/22/20 20:00 87/70 07/22/20 20:00 98.3 93 27 96/66 (76) 100 07/22/20 20:00 100 07/22/20 19:45 93 26 98/67 (77) 100 07/22/20 19:30 92 27 92/69 (77) 100 07/22/20 19:15 92 29 87/62 (70) 100 07/22/20 19:00 94 28 92/66 (75) 100 07/22/20 19:00 28 92/66 Mechanical Ventilator 100 07/22/20 19:00 28 92/66 Mechanical Ventilator 100 07/22/20 19:00 92/66 07/22/20 18:55 94 27 100 07/22/20 18:45 93 34 91/65 (74) 100 07/22/20 18:30 92 34 90/64 (73) 100 07/22/20 18:15 96 34 86/64 (71) 100 07/22/20 18:00 99 34 88/61 (70) 100 07/22/20 18:00 30 88/61 Mechanical Ventilator 100 07/22/20 18:00 30 98/67 Endotracheal Tube 100 07/22/20 18:00 92/69 07/22/20 17:45 99 35 87/62 (70) 100 07/22/20 17:30 100 35 84/64 (71) 100 07/22/20 17:15 101 33 92/62 (72) 100 07/22/20 17:00 30 93/63 Mechanical Ventilator 100 07/22/20 17:00 30 93/63 Mechanical Ventilator 100 07/22/20 17:00 88/61 07/22/20 17:00 101 35 93/63 (73) 100 07/22/20 16:53 98.4 103 36 95/71 (79) 100 07/22/20 16:30 101 33 95/65 (75) 100 07/22/20 16:00 Mechanical Ventilator Mechanical Ventilator Mechanical Ventilator 07/22/20 16:00 110 07/22/20 16:00 29 94/53 Mechanical Ventilator 100 07/22/20 16:00 29 94/53 Mechanical Ventilator 100 07/22/20 16:00 93/63 07/22/20 16:00 100 07/22/20 16:00 105 28 94/47 (63) 100 07/22/20 16:00 Mechanical Ventilator Mechanical Ventilator Mechanical Ventilator 07/22/20 15:00 101 38 100 07/22/20 15:00 31 116/85 Mechanical Ventilator 100 07/22/20 15:00 29 116/85 Mechanical Ventilator 100 07/22/20 15:00 94/53 07/22/20 15:00 122 30 94/53 (67) 100 07/22/20 14:54 31 101/76 Mechanical Ventilator 100 07/22/20 14:30 132 32 101/68 (79) 100 07/22/20 14:00 116/85 07/22/20 14:00 134 35 116/85 (95) 100 07/22/20 13:30 129 36 104/75 (85) 97 07/22/20 13:00 107 14 52/27 (35) 83 07/22/20 13:00 52/27 07/22/20 12:30 109 29 130/70 (90) 100 07/22/20 12:30 52/26 07/22/20 12:15 100 07/22/20 12:00 Mechanical Ventilator Mechanical Ventilator Mechanical Ventilator 07/22/20 12:00 65 38 70/54 (59) 100 07/22/20 12:00 100 07/22/20 12:00 128 07/22/20 11:50 62 54 65 07/22/20 11:00 116 36 121/85 (97) 100 I&O Intake and Output 07/22/20 07/23/20 19:00 07:00 Intake Total 1010.0 ml 1411.25 ml Output Total 305 ml 367 ml Balance 705.0 ml 1044.25 ml Free Water 50 ml IV Total 1010.0 ml 1361.25 ml Output Urine Total 195 ml 330 ml Gastric Drainage Total 100 ml Chest Tube Drainage Total 10 ml 37 ml # Bowel Movements 2 Dressing: saturated Drains: other Cardiovascular: RSR Respiratory: decreased breath sounds Abdomen: soft, flat, non-tender, present bowel sounds, non-distended Extremities: no edema, no tenderness, no cyanosis Laboratory Tests Test 07/23/20 03:40 07/23/20 10:35 White Blood Count 15.7 K/UL (4.8-10.8) H Red Blood Count 3.07 M/UL (4.20-5.40) L Hemoglobin 8.4 G/DL (12.0-16.0) L Hematocrit 28.0 % (37.0-47.0) L Mean Corpuscular Volume 91 FL (80-99) Mean Corpuscular Hemoglobin 27.5 PG (27.0-31.0) Mean Corpuscular Hemoglobin Concent 30.1 G/DL (32.0-36.0) L Red Cell Distribution Width 17.1 % (11.6-14.8) H Platelet Count 358 K/UL (150-450) Mean Platelet Volume 7.7 FL (6.5-10.1) Neutrophils (%) (Auto) 61.4 % (45.0-75.0) Lymphocytes (%) (Auto) 18.7 % (20.0-45.0) L Monocytes (%) (Auto) 10.1 % (1.0-10.0) H Eosinophils (%) (Auto) 9.2 % (0.0-3.0) H Basophils (%) (Auto) 0.6 % (0.0-2.0) Sodium Level 138 MMOL/L (136-145) Potassium Level 3.8 MMOL/L (3.5-5.1) Chloride Level 98 MMOL/L (98-107) Carbon Dioxide Level 34 MMOL/L (21-32) H Anion Gap 6 mmol/L (5-15) Blood Urea Nitrogen 20 mg/dL (7-18) H Creatinine 0.7 MG/DL (0.55-1.30) Estimat Glomerular Filtration Rate > 60 mL/min (>60) Glucose Level 106 MG/DL (74-106) Uric Acid 6.3 MG/DL (2.6-7.2) Calcium Level 10.1 MG/DL (8.5-10.1) Phosphorus Level 3.0 MG/DL (2.5-4.9) Magnesium Level 1.8 MG/DL (1.8-2.4) Total Bilirubin 0.3 MG/DL (0.2-1.0) Aspartate Amino Transf (AST/SGOT) 54 U/L (15-37) H Alanine Aminotransferase (ALT/SGPT) 37 U/L (12-78) Alkaline Phosphatase 63 U/L (46-116) Total Protein 7.1 G/DL (6.4-8.2) Albumin 2.6 G/DL (3.4-5.0) L Globulin 4.5 g/dL Albumin/Globulin Ratio 0.6 (1.0-2.7) L Arterial Blood pH 7.368 (7.350-7.450) Arterial Blood Partial Pressure CO2 59.2 mmHg (35.0-45.0) *H Arterial Blood Partial Pressure O2 71.6 mmHg (75.0-100.0) L Arterial Blood HCO3 33.3 mmol/L (22.0-26.0) H Arterial Blood Oxygen Saturation 92.8 % (95-100) L Arterial Blood Base Excess 7.0 (-2-2) H Jeremiah Test Positive Plan Problems: (1) Respiratory distress (2) Respiratory failure Assessment & Plan: 50-year-old female Covid positive respiratory insufficiency intubated on ventilatory support declining. Leukocytosis increase oxygen requirement. Vent settings per pulmonology reviewed identified and agree. Unfortunately further surgical invention at this time is not appropriate as patient is not a candidate and her current condition. Prognosis overall guarded. Tracheostomy can be considered in the future if recovering or shows improvement and requires unable to be weaned from ventilator support. Currently okay for nutritional optimization with NG tube. Will need significant monitoring for decubitus formation given patient's size and condition. Okay for air mattress tolerated. Turn every 2 hours as tolerated. Patient is otherwise critically ill and blood pressure labile. Will need to monitor closely.Bilater al infiltrates are again demonstrated. Stable tube and line positions. will need trach will need to wean vent first no cuff leak trach okay Improving weaning well DC planning placement much improved peg placement trach changed acls now resuscitated (3) Hypoxia (4) Pneumonia due to COVID-19 virus Assessment & Plan: ++ as per pulm and ID (5) Diabetes mellitus out of control Assessment & Plan: DAILY ESTIMATED NEEDS: Needs based on Critical care, obesity 11-14kcal/kg actual body wt (140kg) kcals/kg 5394-5361 total kcals 1.5-2.0g prot/kg IBW (64.5kg) g protein/kg 96-129 g total protein 25-30ml/kg abw (83kg) mL/kg 5324-8392 total fluid mLs NUTRITION DIAGNOSIS: Swallowing difficulty R/T respiratory failure as evidenced by pt orally intubated and sedated, on OGT feeds. CURRENT TF: Vital 1.2 goal of 60ml/hr ENTERAL NUTRITION RECOMMENDATIONS: Vital AF 1.2 @ 60ml/hr x 24 hrs to provide 1440ml, 1728kcal, 108g prot, 1168ml free water * Maintain current critical care and carb controlled TF formula of Vital AF * TF @ goal meeds 100% est kcal/prot needs * HOB over 30 degrees/ water flush per MD TF may be lowered to 55ml/hr for improved BG control while maintaining Kcal and pro needs. ADDITIONAL RECOMMENDATIONS: * Calibrated bedscale wt * Monitor Propofol rate, need for TF adjustment-> now off * Monitor BGs closely : now improved, on novolog q 6rs + NISS * Monitor lytes- K elevated, monitor need for TF change * Rec bowel regimen- now w/ rectal tube . (6) Pneumothorax on right Assessment & Plan: right tension pneumothorax trach changed for cuff leak and decreased volumes pressures high after and ptx tension acls resuscitated right chest tube placed ptx resolved cont chest tube to suction am cxr wean vent (7) DEVENDRA (acute kidney injury) (8) Morbid obesity SybilAz Jul 23, 2020 10:51
--- NOTE | 2020-07-23 11:10 | Infectious Diseases Prog Note ---
Assessment/Plan Assessment/Plan antibiotics : meropenem A 1. covid 19 pneumonia s/p remdesivir s/p solumedrol 2. respiratory failure s/p tracheostomy 3. serratia pneumonia s/p rx 4. leucocytosis improving 5. enterobacter UTI 6. SBO 7, pneumothorax s/p CT placement P 1. continue meropenem 2. will follow up cultures Subjective ROS Limited/Unobtainable: Yes Allergies: Coded Allergies: No Known Allergies (Unverified , 05/28/20) Objective Last 24 Hour Vital Signs Date Time Temp Pulse Resp B/P (MAP) Pulse Ox O2 Delivery O2 Flow Rate FiO2 07/23/20 10:00 97 27 88/53 (65) 97 07/23/20 09:45 95 28 81/48 (59) 98 07/23/20 09:30 97 24 96/54 (68) 97 07/23/20 09:15 93 27 101/66 (78) 98 07/23/20 09:00 92 31 96/60 (72) 100 07/23/20 08:45 90 15 98/65 (76) 100 07/23/20 08:30 89 27 102/59 (73) 100 07/23/20 08:15 88 21 98/64 (75) 100 07/23/20 08:00 99.0 89 29 99/59 (72) 100 07/23/20 08:00 28 99/59 Mechanical Ventilator 100 07/23/20 08:00 26 98/64 Mechanical Ventilator 100 07/23/20 08:00 98/64 07/23/20 08:00 93 07/23/20 07:30 89 24 91/58 (69) 100 07/23/20 07:15 90 26 95/60 (72) 100 07/23/20 07:00 91 26 91/58 (69) 100 07/23/20 07:00 24 91/58 Mechanical Ventilator 100 07/23/20 07:00 24 95/60 Mechanical Ventilator 100 07/23/20 07:00 91/58 07/23/20 06:32 92 28 07/23/20 06:00 26 97/59 Mechanical Ventilator 100 07/23/20 06:00 26 97/59 Mechanical Ventilator 100 07/23/20 06:00 97/59 07/23/20 06:00 98.0 93 26 97/59 (72) 100 07/23/20 05:45 95 23 99/59 (72) 100 07/23/20 05:30 92 23 109/64 (79) 100 07/23/20 05:15 92 26 100 07/23/20 05:15 91 25 104/65 (78) 100 07/23/20 05:00 91 26 104/68 (80) 100 07/23/20 05:00 26 104/68 Mechanical Ventilator 100 07/23/20 05:00 26 104/68 Endotracheal Tube 100 07/23/20 05:00 104/68 07/23/20 04:45 92 25 105/66 (79) 100 07/23/20 04:30 93 26 105/64 (78) 100 07/23/20 04:15 91 27 108/68 (81) 100 07/23/20 04:08 106/65 07/23/20 04:00 98.9 91 26 106/65 (79) 100 07/23/20 04:00 91 07/23/20 04:00 26 108/68 Mechanical Ventilator 100 07/23/20 04:00 26 108/68 Mechanical Ventilator 100 07/23/20 04:00 108/68 07/23/20 04:00 100 07/23/20 04:00 Mechanical Ventilator Mechanical Ventilator Mechanical Ventilator 07/23/20 03:45 92 22 108/69 (82) 100 07/23/20 03:30 92 26 103/66 (78) 100 07/23/20 03:15 91 26 101/63 (76) 100 07/23/20 03:10 91 25 100 07/23/20 03:00 26 101/63 Mechanical Ventilator 100 07/23/20 03:00 26 101/63 Mechanical Ventilator 100 07/23/20 03:00 101/63 07/23/20 03:00 91 27 103/65 (78) 100 07/23/20 02:45 91 28 104/65 (78) 100 07/23/20 02:30 91 29 106/68 (81) 100 07/23/20 02:15 90 20 109/69 (82) 100 07/23/20 02:00 24 109/69 Mechanical Ventilator 100 07/23/20 02:00 24 109/69 Mechanical Ventilator 100 07/23/20 02:00 109/69 07/23/20 02:00 92 20 104/68 (80) 100 07/23/20 01:45 92 20 107/72 (84) 100 07/23/20 01:30 103 20 99/61 (74) 100 07/23/20 01:15 95 20 112/69 (83) 100 07/23/20 01:04 92 26 100 07/23/20 01:00 91 20 105/67 (80) 100 07/23/20 01:00 20 112/69 Mechanical Ventilator 100 07/23/20 01:00 20 112/69 Mechanical Ventilator 100 07/23/20 01:00 112/69 07/23/20 00:45 91 20 105/69 (81) 100 07/23/20 00:30 90 20 101/70 (80) 100 07/23/20 00:15 91 22 103/68 (80) 100 07/23/20 00:00 98.5 92 12 107/68 (81) 100 07/23/20 00:00 19 103/68 Mechanical Ventilator 100 07/23/20 00:00 20 103/68 Mechanical Ventilator 100 07/23/20 00:00 103/68 07/23/20 00:00 92 07/23/20 00:00 Mechanical Ventilator Mechanical Ventilator Mechanical Ventilator 07/22/20 23:52 23 101/69 Mechanical Ventilator 100 07/22/20 23:45 92 25 102/66 (78) 100 07/22/20 23:30 91 23 104/68 (80) 100 07/22/20 23:15 92 31 106/69 (81) 100 07/22/20 23:00 93 23 103/69 (80) 100 07/22/20 23:00 23 103/69 Mechanical Ventilator 100 07/22/20 23:00 23 103/69 Mechanical Ventilator 100 07/22/20 23:00 103/69 07/22/20 22:57 93 26 100 07/22/20 22:45 93 35 101/67 (78) 100 07/22/20 22:30 94 33 102/64 (77) 100 07/22/20 22:15 93 31 99/68 (78) 100 07/22/20 22:00 33 101/67 Mechanical Ventilator 100 07/22/20 22:00 33 101/67 Mechanical Ventilator 100 07/22/20 22:00 101/67 07/22/20 22:00 94 33 101/67 (78) 100 07/22/20 21:45 96 34 96/64 (75) 100 07/22/20 21:30 98 29 97/60 (72) 100 07/22/20 21:15 99 33 97/58 (71) 100 07/22/20 21:00 29 101/69 Mechanical Ventilator 100 07/22/20 21:00 28 101/69 Mechanical Ventilator 100 07/22/20 21:00 101/69 07/22/20 21:00 95 29 101/69 (80) 100 07/22/20 20:58 92 29 100 07/22/20 20:45 93 27 102/74 (83) 100 07/22/20 20:30 94 25 99/69 (79) 100 07/22/20 20:15 93 28 96/60 (72) 100 07/22/20 20:00 Mechanical Ventilator Mechanical Ventilator Mechanical Ventilator 07/22/20 20:00 94 07/22/20 20:00 28 87/70 Mechanical Ventilator 100 07/22/20 20:00 28 87/70 Mechanical Ventilator 100 07/22/20 20:00 87/70 07/22/20 20:00 98.3 93 27 96/66 (76) 100 07/22/20 20:00 100 07/22/20 19:45 93 26 98/67 (77) 100 07/22/20 19:30 92 27 92/69 (77) 100 07/22/20 19:15 92 29 87/62 (70) 100 07/22/20 19:00 94 28 92/66 (75) 100 07/22/20 19:00 28 92/66 Mechanical Ventilator 100 07/22/20 19:00 28 92/66 Mechanical Ventilator 100 07/22/20 19:00 92/66 07/22/20 18:55 94 27 100 07/22/20 18:45 93 34 91/65 (74) 100 07/22/20 18:30 92 34 90/64 (73) 100 07/22/20 18:15 96 34 86/64 (71) 100 07/22/20 18:00 99 34 88/61 (70) 100 07/22/20 18:00 30 88/61 Mechanical Ventilator 100 07/22/20 18:00 30 98/67 Endotracheal Tube 100 07/22/20 18:00 92/69 07/22/20 17:45 99 35 87/62 (70) 100 07/22/20 17:30 100 35 84/64 (71) 100 07/22/20 17:15 101 33 92/62 (72) 100 07/22/20 17:00 30 93/63 Mechanical Ventilator 100 07/22/20 17:00 30 93/63 Mechanical Ventilator 100 07/22/20 17:00 88/61 07/22/20 17:00 101 35 93/63 (73) 100 07/22/20 16:53 98.4 103 36 95/71 (79) 100 07/22/20 16:30 101 33 95/65 (75) 100 07/22/20 16:00 Mechanical Ventilator Mechanical Ventilator Mechanical Ventilator 07/22/20 16:00 110 07/22/20 16:00 29 94/53 Mechanical Ventilator 100 07/22/20 16:00 29 94/53 Mechanical Ventilator 100 07/22/20 16:00 93/63 07/22/20 16:00 100 07/22/20 16:00 105 28 94/47 (63) 100 07/22/20 16:00 Mechanical Ventilator Mechanical Ventilator Mechanical Ventilator 07/22/20 15:00 101 38 100 07/22/20 15:00 31 116/85 Mechanical Ventilator 100 07/22/20 15:00 29 116/85 Mechanical Ventilator 100 07/22/20 15:00 94/53 07/22/20 15:00 122 30 94/53 (67) 100 07/22/20 14:54 31 101/76 Mechanical Ventilator 100 07/22/20 14:30 132 32 101/68 (79) 100 07/22/20 14:00 116/85 07/22/20 14:00 134 35 116/85 (95) 100 07/22/20 13:30 129 36 104/75 (85) 97 07/22/20 13:00 107 14 52/27 (35) 83 07/22/20 13:00 52/27 07/22/20 12:30 109 29 130/70 (90) 100 07/22/20 12:30 52/26 07/22/20 12:15 100 07/22/20 12:00 Mechanical Ventilator Mechanical Ventilator Mechanical Ventilator 07/22/20 12:00 65 38 70/54 (59) 100 07/22/20 12:00 100 07/22/20 12:00 128 07/22/20 11:50 62 54 65 Height (Feet): 5 Height (Inches): 5.00 Weight (Pounds): 223 HEENT: status post trach Respiratory/Chest: lungs clear, other - right chest tube Cardiovascular: normal rate, regular rhythm, no gallop/murmur Abdomen: soft, non tender Extremities: other - + edema, right groin catheter Laboratory Tests Test 07/23/20 03:40 07/23/20 10:35 White Blood Count 15.7 K/UL (4.8-10.8) H Red Blood Count 3.07 M/UL (4.20-5.40) L Hemoglobin 8.4 G/DL (12.0-16.0) L Hematocrit 28.0 % (37.0-47.0) L Mean Corpuscular Volume 91 FL (80-99) Mean Corpuscular Hemoglobin 27.5 PG (27.0-31.0) Mean Corpuscular Hemoglobin Concent 30.1 G/DL (32.0-36.0) L Red Cell Distribution Width 17.1 % (11.6-14.8) H Platelet Count 358 K/UL (150-450) Mean Platelet Volume 7.7 FL (6.5-10.1) Neutrophils (%) (Auto) 61.4 % (45.0-75.0) Lymphocytes (%) (Auto) 18.7 % (20.0-45.0) L Monocytes (%) (Auto) 10.1 % (1.0-10.0) H Eosinophils (%) (Auto) 9.2 % (0.0-3.0) H Basophils (%) (Auto) 0.6 % (0.0-2.0) Sodium Level 138 MMOL/L (136-145) Potassium Level 3.8 MMOL/L (3.5-5.1) Chloride Level 98 MMOL/L (98-107) Carbon Dioxide Level 34 MMOL/L (21-32) H Anion Gap 6 mmol/L (5-15) Blood Urea Nitrogen 20 mg/dL (7-18) H Creatinine 0.7 MG/DL (0.55-1.30) Estimat Glomerular Filtration Rate > 60 mL/min (>60) Glucose Level 106 MG/DL (74-106) Uric Acid 6.3 MG/DL (2.6-7.2) Calcium Level 10.1 MG/DL (8.5-10.1) Phosphorus Level 3.0 MG/DL (2.5-4.9) Magnesium Level 1.8 MG/DL (1.8-2.4) Total Bilirubin 0.3 MG/DL (0.2-1.0) Aspartate Amino Transf (AST/SGOT) 54 U/L (15-37) H Alanine Aminotransferase (ALT/SGPT) 37 U/L (12-78) Alkaline Phosphatase 63 U/L (46-116) Total Protein 7.1 G/DL (6.4-8.2) Albumin 2.6 G/DL (3.4-5.0) L Globulin 4.5 g/dL Albumin/Globulin Ratio 0.6 (1.0-2.7) L Arterial Blood pH 7.368 (7.350-7.450) Arterial Blood Partial Pressure CO2 59.2 mmHg (35.0-45.0) *H Arterial Blood Partial Pressure O2 71.6 mmHg (75.0-100.0) L Arterial Blood HCO3 33.3 mmol/L (22.0-26.0) H Arterial Blood Oxygen Saturation 92.8 % (95-100) L Arterial Blood Base Excess 7.0 (-2-2) H Jeremiah Test Positive Current Medications Medications (Trade) Dose Ordered Sig/Zelda Route PRN Reason Start Time Stop Time Status Last Admin Dose Admin Acetaminophen (Tylenol) 650 mg Q4H PRN NG Temp >100.5 06/29/20 10:15 07/29/20 10:14 07/20/20 18:12 Acetaminophen (Tylenol) 650 mg Q6H PRN NG Mild Pain (Pain Scale 1-3) 06/29/20 10:15 07/29/20 10:14 07/22/20 11:56 Calcitonin [place] (Miacalcin) 1 sprays DAILY NASAL 07/22/20 14:00 10/20/20 13:59 07/23/20 09:13 Chlorhexidine Gluconate (Inna-Hex 2%) 1 applic DAILY@2000 TOPIC 07/20/20 20:00 10/18/20 19:59 07/22/20 20:37 Dextrose (Dextrose 50%) 25 ml Q30M PRN IV Hypoglycemia 06/05/20 10:45 09/03/20 10:44 Dextrose (Dextrose 50%) 50 ml Q30M PRN IV Hypoglycemia 06/05/20 10:45 09/03/20 10:44 Dextrose/Sodium Chloride 1,000 ml @ 75 mls/hr [id number] IV 07/20/20 12:30 08/19/20 12:29 07/23/20 05:00 Enoxaparin Sodium (Lovenox) 110 mg EVERY 12 HOURS SUBQ 07/17/20 21:00 10/15/20 20:59 07/23/20 09:17 Fentanyl Citrate 250 ml @ 0 mls/hr Q24H PRN IV . 07/22/20 14:00 07/24/20 13:59 07/23/20 08:00 Guaifenesin/ Codeine Phosphate (Robitussin with codeine) 5 ml Q6H PRN NG For Cough 07/14/20 14:15 08/13/20 14:14 07/18/20 21:44 Lansoprazole (Prevacid) 30 mg DAILY GT 07/18/20 09:00 08/09/20 08:59 07/23/20 09:12 Meropenem 1 gm/ Sodium Chloride 55 ml @ 110 mls/hr Q8H IVPB 07/22/20 12:00 07/27/20 11:59 07/23/20 04:08 Midazolam HCl 200 ml @ 0 mls/hr Q24H PRN IV sedation 07/22/20 14:06 07/29/20 14:05 07/23/20 07:00 Midodrine (Pro-Amatine) 10 mg Q8HR GT 06/30/20 14:00 09/12/20 13:59 07/23/20 06:16 Norepinephrine Bitartrate 8 mg/ Dextrose 250 ml @ 0 mls/hr Q24H IV 07/22/20 13:00 07/25/20 12:59 07/23/20 04:08 Quetiapine Fumarate (SEROqueL) 50 mg Q12HR GT 07/16/20 13:30 08/30/20 13:29 07/23/20 09:12 Fili Mcelroy MD Jul 23, 2020 11:10
--- NOTE | 2020-07-23 12:08 | General Progress Note ---
Subjective ROS Limited/Unobtainable: No Allergies: Coded Allergies: No Known Allergies (Unverified , 05/28/20) Objective Last 24 Hour Vital Signs Date Time Temp Pulse Resp B/P (MAP) Pulse Ox O2 Delivery O2 Flow Rate FiO2 07/23/20 11:15 97 31 100/58 (72) 99 07/23/20 11:00 26 91/60 Mechanical Ventilator 60 07/23/20 11:00 29 91/60 Mechanical Ventilator 60 07/23/20 11:00 91/60 07/23/20 11:00 96 24 91/60 (70) 100 07/23/20 10:45 102 29 96/63 (74) 98 07/23/20 10:30 104 25 97/67 (77) 96 07/23/20 10:15 96 24 88/56 (67) 98 07/23/20 10:00 29 88/53 Mechanical Ventilator 60 07/23/20 10:00 27 88/53 Mechanical Ventilator 60 07/23/20 10:00 88/53 07/23/20 10:00 97 27 88/53 (65) 97 07/23/20 09:45 95 28 81/48 (59) 98 07/23/20 09:30 97 24 96/54 (68) 97 07/23/20 09:15 93 27 101/66 (78) 98 07/23/20 09:00 92 31 96/60 (72) 100 07/23/20 09:00 29 96/60 Mechanical Ventilator 60 07/23/20 09:00 29 96/60 Mechanical Ventilator 60 07/23/20 09:00 96/60 07/23/20 08:45 90 15 98/65 (76) 100 07/23/20 08:30 89 27 102/59 (73) 100 07/23/20 08:15 88 21 98/64 (75) 100 07/23/20 08:00 Mechanical Ventilator Mechanical Ventilator Mechanical Ventilator 07/23/20 08:00 99.0 89 29 99/59 (72) 100 07/23/20 08:00 28 99/59 Mechanical Ventilator 100 07/23/20 08:00 26 98/64 Mechanical Ventilator 100 07/23/20 08:00 98/64 07/23/20 08:00 100 07/23/20 08:00 93 07/23/20 07:30 89 24 91/58 (69) 100 07/23/20 07:15 90 26 95/60 (72) 100 07/23/20 07:00 91 26 91/58 (69) 100 07/23/20 07:00 24 91/58 Mechanical Ventilator 100 07/23/20 07:00 24 95/60 Mechanical Ventilator 100 07/23/20 07:00 91/58 07/23/20 06:32 92 28 07/23/20 06:00 26 97/59 Mechanical Ventilator 100 07/23/20 06:00 26 97/59 Mechanical Ventilator 100 07/23/20 06:00 97/59 07/23/20 06:00 98.0 93 26 97/59 (72) 100 07/23/20 05:45 95 23 99/59 (72) 100 07/23/20 05:30 92 23 109/64 (79) 100 07/23/20 05:15 92 26 100 07/23/20 05:15 91 25 104/65 (78) 100 07/23/20 05:00 91 26 104/68 (80) 100 07/23/20 05:00 26 104/68 Mechanical Ventilator 100 07/23/20 05:00 26 104/68 Endotracheal Tube 100 07/23/20 05:00 104/68 07/23/20 04:45 92 25 105/66 (79) 100 07/23/20 04:30 93 26 105/64 (78) 100 07/23/20 04:15 91 27 108/68 (81) 100 07/23/20 04:08 106/65 07/23/20 04:00 98.9 91 26 106/65 (79) 100 07/23/20 04:00 91 07/23/20 04:00 26 108/68 Mechanical Ventilator 100 07/23/20 04:00 26 108/68 Mechanical Ventilator 100 07/23/20 04:00 108/68 07/23/20 04:00 100 07/23/20 04:00 Mechanical Ventilator Mechanical Ventilator Mechanical Ventilator 07/23/20 03:45 92 22 108/69 (82) 100 07/23/20 03:30 92 26 103/66 (78) 100 07/23/20 03:15 91 26 101/63 (76) 100 07/23/20 03:10 91 25 100 07/23/20 03:00 26 101/63 Mechanical Ventilator 100 07/23/20 03:00 26 101/63 Mechanical Ventilator 100 07/23/20 03:00 101/63 07/23/20 03:00 91 27 103/65 (78) 100 07/23/20 02:45 91 28 104/65 (78) 100 07/23/20 02:30 91 29 106/68 (81) 100 07/23/20 02:15 90 20 109/69 (82) 100 07/23/20 02:00 24 109/69 Mechanical Ventilator 100 07/23/20 02:00 24 109/69 Mechanical Ventilator 100 07/23/20 02:00 109/69 07/23/20 02:00 92 20 104/68 (80) 100 07/23/20 01:45 92 20 107/72 (84) 100 07/23/20 01:30 103 20 99/61 (74) 100 07/23/20 01:15 95 20 112/69 (83) 100 07/23/20 01:04 92 26 100 07/23/20 01:00 91 20 105/67 (80) 100 07/23/20 01:00 20 112/69 Mechanical Ventilator 100 07/23/20 01:00 20 112/69 Mechanical Ventilator 100 07/23/20 01:00 112/69 07/23/20 00:45 91 20 105/69 (81) 100 07/23/20 00:30 90 20 101/70 (80) 100 07/23/20 00:15 91 22 103/68 (80) 100 07/23/20 00:00 98.5 92 12 107/68 (81) 100 07/23/20 00:00 19 103/68 Mechanical Ventilator 100 07/23/20 00:00 20 103/68 Mechanical Ventilator 100 07/23/20 00:00 103/68 07/23/20 00:00 92 07/23/20 00:00 Mechanical Ventilator Mechanical Ventilator Mechanical Ventilator 07/22/20 23:52 23 101/69 Mechanical Ventilator 100 07/22/20 23:45 92 25 102/66 (78) 100 07/22/20 23:30 91 23 104/68 (80) 100 07/22/20 23:15 92 31 106/69 (81) 100 07/22/20 23:00 93 23 103/69 (80) 100 07/22/20 23:00 23 103/69 Mechanical Ventilator 100 07/22/20 23:00 23 103/69 Mechanical Ventilator 100 07/22/20 23:00 103/69 07/22/20 22:57 93 26 100 07/22/20 22:45 93 35 101/67 (78) 100 07/22/20 22:30 94 33 102/64 (77) 100 07/22/20 22:15 93 31 99/68 (78) 100 07/22/20 22:00 33 101/67 Mechanical Ventilator 100 07/22/20 22:00 33 101/67 Mechanical Ventilator 100 07/22/20 22:00 101/67 07/22/20 22:00 94 33 101/67 (78) 100 07/22/20 21:45 96 34 96/64 (75) 100 07/22/20 21:30 98 29 97/60 (72) 100 07/22/20 21:15 99 33 97/58 (71) 100 07/22/20 21:00 29 101/69 Mechanical Ventilator 100 07/22/20 21:00 28 101/69 Mechanical Ventilator 100 07/22/20 21:00 101/69 07/22/20 21:00 95 29 101/69 (80) 100 07/22/20 20:58 92 29 100 07/22/20 20:45 93 27 102/74 (83) 100 07/22/20 20:30 94 25 99/69 (79) 100 07/22/20 20:15 93 28 96/60 (72) 100 07/22/20 20:00 Mechanical Ventilator Mechanical Ventilator Mechanical Ventilator 07/22/20 20:00 94 07/22/20 20:00 28 87/70 Mechanical Ventilator 100 07/22/20 20:00 28 87/70 Mechanical Ventilator 100 07/22/20 20:00 87/70 07/22/20 20:00 98.3 93 27 96/66 (76) 100 07/22/20 20:00 100 07/22/20 19:45 93 26 98/67 (77) 100 07/22/20 19:30 92 27 92/69 (77) 100 07/22/20 19:15 92 29 87/62 (70) 100 07/22/20 19:00 94 28 92/66 (75) 100 07/22/20 19:00 28 92/66 Mechanical Ventilator 100 07/22/20 19:00 28 92/66 Mechanical Ventilator 100 07/22/20 19:00 92/66 07/22/20 18:55 94 27 100 07/22/20 18:45 93 34 91/65 (74) 100 07/22/20 18:30 92 34 90/64 (73) 100 07/22/20 18:15 96 34 86/64 (71) 100 07/22/20 18:00 99 34 88/61 (70) 100 07/22/20 18:00 30 88/61 Mechanical Ventilator 100 07/22/20 18:00 30 98/67 Endotracheal Tube 100 07/22/20 18:00 92/69 07/22/20 17:45 99 35 87/62 (70) 100 07/22/20 17:30 100 35 84/64 (71) 100 07/22/20 17:15 101 33 92/62 (72) 100 07/22/20 17:00 30 93/63 Mechanical Ventilator 100 07/22/20 17:00 30 93/63 Mechanical Ventilator 100 07/22/20 17:00 88/61 07/22/20 17:00 101 35 93/63 (73) 100 07/22/20 16:53 98.4 103 36 95/71 (79) 100 07/22/20 16:30 101 33 95/65 (75) 100 07/22/20 16:00 Mechanical Ventilator Mechanical Ventilator Mechanical Ventilator 07/22/20 16:00 110 07/22/20 16:00 29 94/53 Mechanical Ventilator 100 07/22/20 16:00 29 94/53 Mechanical Ventilator 100 07/22/20 16:00 93/63 07/22/20 16:00 100 07/22/20 16:00 105 28 94/47 (63) 100 07/22/20 16:00 Mechanical Ventilator Mechanical Ventilator Mechanical Ventilator 07/22/20 15:00 101 38 100 07/22/20 15:00 31 116/85 Mechanical Ventilator 100 07/22/20 15:00 29 116/85 Mechanical Ventilator 100 07/22/20 15:00 94/53 07/22/20 15:00 122 30 94/53 (67) 100 07/22/20 14:54 31 101/76 Mechanical Ventilator 100 07/22/20 14:30 132 32 101/68 (79) 100 07/22/20 14:00 116/85 07/22/20 14:00 134 35 116/85 (95) 100 07/22/20 13:30 129 36 104/75 (85) 97 07/22/20 13:00 107 14 (35) 83 07/22/20 13:00 52/27 07/22/20 12:30 109 29 130/70 (90) 100 07/22/20 12:30 52/26 07/22/20 12:15 100 Intake and Output 07/22/20 07/23/20 19:00 07:00 Intake Total 1010.0 ml 1411.25 ml Output Total 305 ml 367 ml Balance 705.0 ml 1044.25 ml Free Water 50 ml IV Total 1010.0 ml 1361.25 ml Output Urine Total 195 ml 330 ml Gastric Drainage Total 100 ml Chest Tube Drainage Total 10 ml 37 ml # Bowel Movements 2 Laboratory Tests 07/23/20 03:40: White Blood Count 15.7H, Red Blood Count 3.07L, Hemoglobin 8.4L, Hematocrit 28.0L, Mean Corpuscular Volume 91, Mean Corpuscular Hemoglobin 27.5, Mean Corpuscular Hemoglobin Concent 30.1L, Red Cell Distribution Width 17.1H, Platelet Count 358, Mean Platelet Volume 7.7, Neutrophils (%) (Auto) 61.4, Lymphocytes (%) (Auto) 18.7L, Monocytes (%) (Auto) 10.1H, Eosinophils (%) (Auto) 9.2H, Basophils (%) (Auto) 0.6, Sodium Level 138, Potassium Level 3.8, Chloride Level 98, Carbon Dioxide Level 34H, Anion Gap 6, Blood Urea Nitrogen 20H, Creatinine 0.7, Estimat Glomerular Filtration Rate > 60, Glucose Level 106, Uric Acid 6.3, Calcium Level 10.1, Phosphorus Level 3.0, Magnesium Level 1.8, Total Bilirubin 0.3, Aspartate Amino Transf (AST/SGOT) 54H, Alanine Aminotransferase (ALT/SGPT) 37, Alkaline Phosphatase 63, Total Protein 7.1, Albumin 2.6L, Globulin 4.5, Albumin/Globulin Ratio 0.6L 07/23/20 10:35: Arterial Blood pH 7.368, Arterial Blood Partial Pressure CO2 59.2*H, Arterial Blood Partial Pressure O2 71.6L, Arterial Blood HCO3 33.3H, Arterial Blood Oxygen Saturation 92.8L, Arterial Blood Base Excess 7.0H, Jeremiah Test Positive Height (Feet): 5 Height (Inches): 5.00 Weight (Pounds): 223 General Appearance: lethargic EENT: normal ENT inspection Neck: supple Cardiovascular: normal rate Respiratory/Chest: decreased breath sounds Abdomen: soft, hypoactive bowel sounds Extremities: non-tender Assessment/Plan Problem List: (1) Morbid obesity ICD Codes: E66.01 - Morbid (severe) obesity due to excess calories SNOMED: 559240039 (2) DEVENDRA (acute kidney injury) ICD Codes: N17.9 - Acute kidney failure, unspecified SNOMED: 2210682, 03846865 (3) Diabetes mellitus out of control ICD Codes: E11.65 - Type 2 diabetes mellitus with hyperglycemia SNOMED: 41895967, 332100922 (4) Pneumonia due to COVID-19 virus ICD Codes: U07.1 - COVID-19; J12.82 - Pneumonia due to coronavirus disease 2019 SNOMED: 802664975842514263 (5) Hypoxia ICD Codes: R09.02 - Hypoxemia SNOMED: 893078826 (6) Respiratory failure ICD Codes: J96.90 - Respiratory failure, unspecified, unspecified whether with hypoxia or hypercapnia SNOMED: 910266553 Status: unchanged Assessment/Plan: coded 2 x yesterday hold NGTF NG to suction hold PEG plans for now will Ryan Dubose MD Jul 23, 2020 12:08
--- NOTE | 2020-07-23 12:55 | Nephrology Progress Note ---
Assessment/Plan Problem List: (1) DEVENDRA (acute kidney injury) (2) Morbid obesity (3) Diabetes mellitus out of control (4) Pneumonia due to COVID-19 virus (5) Respiratory failure Assessment Acute renal failure Obstructive uropathy, clogged Lennon Respiratory failure COVID-19 pneumonia Morbid obesity Plan July 23: Patient seen in ICU. Discussed with RN. Yesterday the patient developed tension pneumothorax. Patient has a chest tube today. Labs reviewed. Renal parameters stable. Medication list reviewed. July 22: Status quo. Labs reviewed. Serum calcium elevated. Vitamin D discontinued. Pamidronate 60 mg IV given. Continue to monitor calcium and phosphorus. Patient due for PEG today. July 21: Status quo. Awake responsive. Labs reviewed. Medication list reviewed. Stable from renal standpoint of view. Due for PEG tomorrow. Continue her current management. July 20: Status quo. PEG procedure deferred to July 22. Patient remains full code. Abnormal electrolytes addressed. FiO2 50% unchanged. Continue per consultants. July 19: Status quo. Due for PEG insertion today. Remains full code. Trach and vent. Low magnesium addressed. Continue per consultants. FiO2 50%. July 18: Status quo. Labs reviewed. Low potassium addressed. Continue per consultants. Remains full code. July 17: Remains full code. Trach to vent. FiO2 40%. Labs reviewed. Low potassium addressed. Continue per consultants. July 16: Status quo. FiO2 45%. Discussed with RN. Continue to taper her mind altering medications and sedatives. Stable from renal standpoint of view. Abnormal electrolytes addressed. July 15: Full code. FiO2 50%. Intubated on ventilator. No labs drawn today. Continue per consultants. July 14: Status quo. FiO2 50%. Labs reviewed. Renal parameters stable. Continue per current treatment plan and consultants. Medication list reviewed. July 13: FiO2 60% unchanged. Labs reviewed. Renal parameters stable. Medication list reviewed. Continue per consultants. July 12: Full code. Labs reviewed. Normal electrolytes addressed. Continue per pulmonary. Medication list reviewed. July 11: Remains full code. On ventilator. FiO2 down to 65%. Renal parameters stable. Low magnesium addressed. Continue her current management. July 10: Full code. On ventilator. FiO2 70%. Hemoglobin mid sevens. Renal parameters stable. Continue per consultants. July 09: Labs reviewed. Renal parameters stable. FiO2 80% unchanged. Continue per pulmonary. July 08: Labs reviewed. Renal parameters and electrolytes stable. ABG suggestive of high PCO2. At this time patient is on FiO2 of 80%. Continue per pulmonary. Continue to monitor renal parameters. July 07: No CHEM panel drawn today. More potassium given. Continue to monitor renal parameters. Continue per consultants. Discussed with RAKEL Veras. July 06: Low potassium addressed. Albumin bolus for low BP given. Patient remains full code. Continue to monitor electrolytes and renal parameters. Continue per consultants. Hemoglobin low today, transfusion per training and quality manager. July 05: Trach to vent. FiO2 80%. Renal parameters stable. PCO2 remains high at 44. Continue to monitor renal parameters. July 04: Patient now trach. Full code. Labs reviewed. Renal parameters stable. Low magnesium addressed. July 03: Intubated. Full code. Labs reviewed. Abnormal electrolytes addressed. Continue per consultants. Overall status unchanged. July 02: Remains intubated. Remains full code. Remains on FiO2 of 70%. Labs reviewed. Abnormal electrolytes addressed. Continue per pulmonary. July 01: Remains on 70% FiO2. Full code. Intubated on ventilator. Retaining CO2. Discussed with RN. Will do ABG today. Albumin bolus given. 1 dose of Diamox given. June 30: Status quo. Labs reviewed. Abnormal electrolytes addressed. Remains full code. Remains on ventilator. Magnesium sulfate 4 gram IVPB given. June 29: Full code. Intubated on ventilator. Labs reviewed. Stable from renal standpoint of view. Continue per consultants. June 28: Remains full code. Remains intubated on ventilator. Labs reviewed. Vitamin D supplement ordered. Continue to monitor renal parameters. Continue per consultants. June 27: Remains full code. Intubated on ventilator. Labs reviewed. Abnormal electrolyte addressed. Continue to monitor renal parameters and electrolytes. Continue per consultants. June 26: Labs reviewed. Remains full code. Remains intubated. Back on NGT feeding. Continue to monitor renal parameters. June 25: Labs reviewed. Renal parameters stable. Remains full code. Due to positional status patient could not be fed via NG tube. Starting TPN? Is being entertained. Continue per consultants. June 24: Labs reviewed. Renal parameters stable. Remains full code. Remains intubated on ventilator. Continue per consultants. June 23: Labs reviewed. Renal parameters stable. Discussed with RAKEL. Gerald bnormal electrolyte addressed. Remains full code. Remains on ventilator. Continue per consultants. June 22: Labs reviewed. Low potassium addressed. Discussed with RAKEL Moran. Patient full code. Remains on ventilator. Continue to monitor renal par ameters. June 21. Labs reviewed. Abnormal electrolyte addressed. Full code. Remains on ventilator. Medication list reviewed. Continue per pulmonary management. DC IV fluid, resume Lasix daily, check chest x-ray. June 20: Labs reviewed. Abnormal electrolytes. Patient remains full code. Continue per consultants. Noted and addressed June 19: Labs reviewed. Abnormal electrolytes noted and addressed. Remains intubated on ventilator. Remains full code. June 18: Labs reviewed. Remains intubated on ventilator. Full code. Abnormal electrolyte addressed. Continue as is. June 17: Labs reviewed. Abnormal electrolytes addressed. Patient remains full code and intubated on ventilator. Continue per consultants. Renal parameters are within normal limits. June 16: Labs reviewed. Potassium chloride replaced. Remains full code. Remains intubated on ventilator. Continue per consultants. Continue to monitor renal parameters. June 15: Labs reviewed. Serum creatinine 1. Stable from renal standpoint to view. Continue per consultants. June 14: Labs reviewed. Full code. Serum creatinine of 3.5 down to 1.4. Low potassium addressed. Continue per current treatment plan. Continue to monitor renal parameters. Midodrine started. Albumin bolus given. Previously: DC Lasix drip Increase Protonix dose Monitor renal parameters, electrolytes Per orders Subjective ROS Limited/Unobtainable: Yes - arge Objective Objective Last 24 Hour Vital Signs Date Time Temp Pulse Resp B/P (MAP) Pulse Ox O2 Delivery O2 Flow Rate FiO2 07/23/20 11:15 97 31 100/58 (72) 99 07/23/20 11:00 26 91/60 Mechanical Ventilator 60 07/23/20 11:00 29 91/60 Mechanical Ventilator 60 07/23/20 11:00 91/60 07/23/20 11:00 96 24 91/60 (70) 100 07/23/20 10:45 102 29 96/63 (74) 98 07/23/20 10:30 104 25 97/67 (77) 96 07/23/20 10:15 96 24 88/56 (67) 98 07/23/20 10:00 29 88/53 Mechanical Ventilator 60 07/23/20 10:00 27 88/53 Mechanical Ventilator 60 07/23/20 10:00 88/53 07/23/20 10:00 97 27 88/53 (65) 97 07/23/20 09:45 95 28 81/48 (59) 98 07/23/20 09:30 97 24 96/54 (68) 97 07/23/20 09:15 93 27 101/66 (78) 98 07/23/20 09:00 92 31 96/60 (72) 100 07/23/20 09:00 29 96/60 Mechanical Ventilator 60 07/23/20 09:00 29 96/60 Mechanical Ventilator 60 07/23/20 09:00 96/60 07/23/20 08:45 90 15 98/65 (76) 100 07/23/20 08:30 89 27 102/59 (73) 100 07/23/20 08:15 88 21 98/64 (75) 100 07/23/20 08:00 Mechanical Ventilator Mechanical Ventilator Mechanical Ventilator 07/23/20 08:00 99.0 89 29 99/59 (72) 100 07/23/20 08:00 28 99/59 Mechanical Ventilator 100 07/23/20 08:00 26 98/64 Mechanical Ventilator 100 07/23/20 08:00 98/64 07/23/20 08:00 100 07/23/20 08:00 93 07/23/20 07:30 89 24 91/58 (69) 100 07/23/20 07:15 90 26 95/60 (72) 100 07/23/20 07:00 91 26 91/58 (69) 100 07/23/20 07:00 24 91/58 Mechanical Ventilator 100 07/23/20 07:00 24 95/60 Mechanical Ventilator 100 07/23/20 07:00 91/58 07/23/20 06:32 92 28 07/23/20 06:00 26 97/59 Mechanical Ventilator 100 07/23/20 06:00 26 97/59 Mechanical Ventilator 100 07/23/20 06:00 97/59 07/23/20 06:00 98.0 93 26 97/59 (72) 100 07/23/20 05:45 95 23 99/59 (72) 100 07/23/20 05:30 92 23 109/64 (79) 100 07/23/20 05:15 92 26 100 07/23/20 05:15 91 25 104/65 (78) 100 07/23/20 05:00 91 26 104/68 (80) 100 07/23/20 05:00 26 104/68 Mechanical Ventilator 100 07/23/20 05:00 26 104/68 Endotracheal Tube 100 07/23/20 05:00 104/68 07/23/20 04:45 92 25 105/66 (79) 100 07/23/20 04:30 93 26 105/64 (78) 100 07/23/20 04:15 91 27 108/68 (81) 100 07/23/20 04:08 106/65 07/23/20 04:00 98.9 91 26 106/65 (79) 100 07/23/20 04:00 91 07/23/20 04:00 26 108/68 Mechanical Ventilator 100 07/23/20 04:00 26 108/68 Mechanical Ventilator 100 07/23/20 04:00 108/68 07/23/20 04:00 100 07/23/20 04:00 Mechanical Ventilator Mechanical Ventilator Mechanical Ventilator 07/23/20 03:45 92 22 108/69 (82) 100 07/23/20 03:30 92 26 103/66 (78) 100 07/23/20 03:15 91 26 101/63 (76) 100 07/23/20 03:10 91 25 100 07/23/20 03:00 26 101/63 Mechanical Ventilator 100 07/23/20 03:00 26 101/63 Mechanical Ventilator 100 07/23/20 03:00 101/63 07/23/20 03:00 91 27 103/65 (78) 100 07/23/20 02:45 91 28 104/65 (78) 100 07/23/20 02:30 91 29 106/68 (81) 100 07/23/20 02:15 90 20 109/69 (82) 100 07/23/20 02:00 24 109/69 Mechanical Ventilator 100 07/23/20 02:00 24 109/69 Mechanical Ventilator 100 07/23/20 02:00 109/69 07/23/20 02:00 92 20 104/68 (80) 100 07/23/20 01:45 92 20 107/72 (84) 100 07/23/20 01:30 103 20 99/61 (74) 100 07/23/20 01:15 95 20 112/69 (83) 100 07/23/20 01:04 92 26 100 07/23/20 01:00 91 20 105/67 (80) 100 07/23/20 01:00 20 112/69 Mechanical Ventilator 100 07/23/20 01:00 20 112/69 Mechanical Ventilator 100 07/23/20 01:00 112/69 07/23/20 00:45 91 20 105/69 (81) 100 07/23/20 00:30 90 20 101/70 (80) 100 07/23/20 00:15 91 22 103/68 (80) 100 07/23/20 00:00 98.5 92 12 107/68 (81) 100 07/23/20 00:00 19 103/68 Mechanical Ventilator 100 07/23/20 00:00 20 103/68 Mechanical Ventilator 100 07/23/20 00:00 103/68 07/23/20 00:00 92 07/23/20 00:00 Mechanical Ventilator Mechanical Ventilator Mechanical Ventilator 07/22/20 23:52 23 101/69 Mechanical Ventilator 100 07/22/20 23:45 92 25 102/66 (78) 100 07/22/20 23:30 91 23 104/68 (80) 100 07/22/20 23:15 92 31 106/69 (81) 100 07/22/20 23:00 93 23 103/69 (80) 100 07/22/20 23:00 23 103/69 Mechanical Ventilator 100 07/22/20 23:00 23 103/69 Mechanical Ventilator 100 07/22/20 23:00 103/69 07/22/20 22:57 93 26 100 07/22/20 22:45 93 35 101/67 (78) 100 07/22/20 22:30 94 33 102/64 (77) 100 07/22/20 22:15 93 31 99/68 (78) 100 07/22/20 22:00 33 101/67 Mechanical Ventilator 100 07/22/20 22:00 33 101/67 Mechanical Ventilator 100 07/22/20 22:00 101/67 07/22/20 22:00 94 33 101/67 (78) 100 07/22/20 21:45 96 34 96/64 (75) 100 07/22/20 21:30 98 29 97/60 (72) 100 07/22/20 21:15 99 33 97/58 (71) 100 07/22/20 21:00 29 101/69 Mechanical Ventilator 100 07/22/20 21:00 28 101/69 Mechanical Ventilator 100 07/22/20 21:00 101/69 07/22/20 21:00 95 29 101/69 (80) 100 07/22/20 20:58 92 29 100 07/22/20 20:45 93 27 102/74 (83) 100 07/22/20 20:30 94 25 99/69 (79) 100 07/22/20 20:15 93 28 96/60 (72) 100 07/22/20 20:00 Mechanical Ventilator Mechanical Ventilator Mechanical Ventilator 07/22/20 20:00 94 07/22/20 20:00 28 87/70 Mechanical Ventilator 100 07/22/20 20:00 28 87/70 Mechanical Ventilator 100 07/22/20 20:00 87/70 07/22/20 20:00 98.3 93 27 96/66 (76) 100 07/22/20 20:00 100 07/22/20 19:45 93 26 98/67 (77) 100 07/22/20 19:30 92 27 92/69 (77) 100 07/22/20 19:15 92 29 87/62 (70) 100 07/22/20 19:00 94 28 92/66 (75) 100 07/22/20 19:00 28 92/66 Mechanical Ventilator 100 07/22/20 19:00 28 92/66 Mechanical Ventilator 100 07/22/20 19:00 92/66 07/22/20 18:55 94 27 100 07/22/20 18:45 93 34 91/65 (74) 100 07/22/20 18:30 92 34 90/64 (73) 100 07/22/20 18:15 96 34 86/64 (71) 100 07/22/20 18:00 99 34 88/61 (70) 100 07/22/20 18:00 30 88/61 Mechanical Ventilator 100 07/22/20 18:00 30 98/67 Endotracheal Tube 100 07/22/20 18:00 92/69 07/22/20 17:45 99 35 87/62 (70) 100 07/22/20 17:30 100 35 84/64 (71) 100 07/22/20 17:15 101 33 92/62 (72) 100 07/22/20 17:00 30 93/63 Mechanical Ventilator 100 07/22/20 17:00 30 93/63 Mechanical Ventilator 100 07/22/20 17:00 88/61 07/22/20 17:00 101 35 93/63 (73) 100 07/22/20 16:53 98.4 103 36 95/71 (79) 100 07/22/20 16:30 101 33 95/65 (75) 100 07/22/20 16:00 Mechanical Ventilator Mechanical Ventilator Mechanical Ventilator 07/22/20 16:00 110 07/22/20 16:00 29 94/53 Mechanical Ventilator 100 07/22/20 16:00 29 94/53 Mechanical Ventilator 100 07/22/20 16:00 93/63 07/22/20 16:00 100 07/22/20 16:00 105 28 94/47 (63) 100 07/22/20 16:00 Mechanical Ventilator Mechanical Ventilator Mechanical Ventilator 07/22/20 15:00 101 38 100 07/22/20 15:00 31 116/85 Mechanical Ventilator 100 07/22/20 15:00 29 116/85 Mechanical Ventilator 100 07/22/20 15:00 94/53 07/22/20 15:00 122 30 94/53 (67) 100 07/22/20 14:54 31 101/76 Mechanical Ventilator 100 07/22/20 14:30 132 32 101/68 (79) 100 07/22/20 14:00 116/85 07/22/20 14:00 134 35 116/85 (95) 100 07/22/20 13:30 129 36 104/75 (85) 97 07/22/20 13:00 107 14 52/27 (35) 83 07/22/20 13:00 52/27 Intake and Output 07/22/20 07/23/20 19:00 07:00 Intake Total 1010.0 ml 1411.25 ml Output Total 305 ml 367 ml Balance 705.0 ml 1044.25 ml Free Water 50 ml IV Total 1010.0 ml 1361.25 ml Output Urine Total 195 ml 330 ml Gastric Drainage Total 100 ml Chest Tube Drainage Total 10 ml 37 ml # Bowel Movements 2 Current Medications Medications (Trade) Dose Ordered Sig/Zelda Route PRN Reason Start Time Stop Time Status Last Admin Dose Admin Acetaminophen (Tylenol) 650 mg Q4H PRN NG Temp >100.5 2/6/21 10:15 07/29/20 10:14 07/20/20 18:12 Acetaminophen (Tylenol) 650 mg Q6H PRN NG Mild Pain (Pain Scale 1-3) 06/29/20 10:15 07/29/20 10:14 07/22/20 11:56 Calcitonin Collins (Miacalcin) 1 sprays DAILY NASAL 07/22/20 14:00 10/20/20 13:59 07/23/20 09:13 Chlorhexidine Gluconate (Inna-Hex 2%) 1 applic DAILY@2000 TOPIC 07/20/20 20:00 10/18/20 19:59 07/22/20 20:37 Dextrose (Dextrose 50%) 25 ml Q30M PRN IV Hypoglycemia 06/05/20 10:45 09/03/20 10:44 Dextrose (Dextrose 50%) 50 ml Q30M PRN IV Hypoglycemia 06/05/20 10:45 09/03/20 10:44 Dextrose/Sodium Chloride 1,000 ml @ 75 mls/hr [id number] IV 07/20/20 12:30 08/19/20 12:29 07/23/20 05:00 Enoxaparin Sodium (Lovenox) 110 mg EVERY 12 HOURS SUBQ 07/17/20 21:00 10/15/20 20:59 07/23/20 09:17 Fentanyl Citrate 250 ml @ 0 mls/hr Q24H PRN IV . 07/22/20 14:00 07/24/20 13:59 07/23/20 08:00 Guaifenesin/ Codeine Phosphate (Robitussin with codeine) 5 ml Q6H PRN NG For Cough 07/14/20 14:15 08/13/20 14:14 07/18/20 21:44 Lansoprazole (Prevacid) 30 mg DAILY GT 07/18/20 09:00 08/09/20 08:59 07/23/20 09:12 Meropenem 1 gm/ Sodium Chloride 55 ml @ 110 mls/hr Q8H IVPB 07/22/20 12:00 07/27/20 11:59 07/23/20 12:11 Midazolam HCl 200 ml @ 0 mls/hr Q24H PRN IV sedation 07/22/20 14:06 07/29/20 14:05 07/23/20 07:00 Midodrine (Pro-Amatine) 10 mg Q8HR GT 06/30/20 14:00 09/12/20 13:59 07/23/20 06:16 Norepinephrine Bitartrate 8 mg/ Dextrose 250 ml @ 0 mls/hr Q24H IV 07/22/20 13:00 07/25/20 12:59 07/23/20 04:08 Quetiapine Fumarate (SEROqueL) 50 mg Q12HR GT 07/16/20 13:30 08/30/20 13:29 07/23/20 09:12 Laboratory Tests 07/23/20 03:40: White Blood Count 15.7H, Red Blood Count 3.07L, Hemoglobin 8.4L, Hematocrit 28.0L, Mean Corpuscular Volume 91, Mean Corpuscular Hemoglobin 27.5, Mean Corpuscular Hemoglobin Concent 30.1L, Red Cell Distribution Width 17.1H, Platelet Count 358, Mean Platelet Volume 7.7, Neutrophils (%) (Auto) 61.4, Lymphocytes (%) (Auto) 18.7L, Monocytes (%) (Auto) 10.1H, Eosinophils (%) (Auto) 9.2H, Basophils (%) (Auto) 0.6, Sodium Level 138, Potassium Level 3.8, Chloride Level 98, Carbon Dioxide Level 34H, Anion Gap 6, Blood Urea Nitrogen 20H, Creatinine 0.7, Estimat Glomerular Filtration Rate > 60, Glucose Level 106, Uric Acid 6.3, Calcium Level 10.1, Phosphorus Level 3.0, Magnesium Level 1.8, Total Bilirubin 0.3, Aspartate Amino Transf (AST/SGOT) 54H, Alanine Aminotransferase (ALT/SGPT) 37, Alkaline Phosphatase 63, Total Protein 7.1, Albumin 2.6L, Globulin 4.5, Albumin/Globulin Ratio 0.6L 07/23/20 10:35: Arterial Blood pH 7.368, Arterial Blood Partial Pressure CO2 59.2*H, Arterial Blood Partial Pressure O2 71.6L, Arterial Blood HCO3 33.3H, Arterial Blood Oxygen Saturation 92.8L, Arterial Blood Base Excess 7.0H, Jeremiah Test Positive Height (Feet): 5 Height (Inches): 5.00 Weight (Pounds): 223 General Appearance: no apparent distress EENT: other - Trach to vent Cardiovascular: tachycardia Respiratory/Chest: decreased breath sounds, other - Patient has a chest tube in place Abdomen: distended Rigo Tyler MD Jul 23, 2020 12:55
--- NOTE | 2020-07-23 13:22 | General Progress Note ---
Subjective Constitutional: Reports: weakness Allergies: Coded Allergies: No Known Allergies (Unverified , 05/28/20) All Systems: reviewed and negative except above Subjective trach vent ng in icu Objective Last 24 Hour Vital Signs Date Time Temp Pulse Resp B/P (MAP) Pulse Ox O2 Delivery O2 Flow Rate FiO2 07/23/20 13:00 97 15 93/60 (71) 99 07/23/20 13:00 100 07/23/20 12:45 97 18 95/60 (72) 100 07/23/20 12:30 98 23 99/57 (71) 99 07/23/20 12:15 98 35 93/58 (70) 99 07/23/20 12:00 Mechanical Ventilator Mechanical Ventilator Mechanical Ventilator 07/23/20 12:00 96 07/23/20 12:00 95 26 93/60 (71) 100 07/23/20 12:00 60 07/23/20 12:00 99.2 102 23 101/60 (74) 95 07/23/20 11:45 97 33 92/61 (71) 100 07/23/20 11:30 97 24 93/57 (69) 99 07/23/20 11:15 97 31 100/58 (72) 99 07/23/20 11:00 26 91/60 Mechanical Ventilator 60 07/23/20 11:00 29 91/60 Mechanical Ventilator 60 07/23/20 11:00 91/60 07/23/20 11:00 96 24 91/60 (70) 100 07/23/20 10:45 102 29 96/63 (74) 98 07/23/20 10:30 104 25 97/67 (77) 96 07/23/20 10:15 96 24 88/56 (67) 98 07/23/20 10:00 29 88/53 Mechanical Ventilator 60 07/23/20 10:00 27 88/53 Mechanical Ventilator 60 07/23/20 10:00 88/53 07/23/20 10:00 97 27 88/53 (65) 97 07/23/20 09:45 95 28 81/48 (59) 98 07/23/20 09:30 97 24 96/54 (68) 97 07/23/20 09:15 93 27 101/66 (78) 98 07/23/20 09:00 92 31 96/60 (72) 100 07/23/20 09:00 29 96/60 Mechanical Ventilator 60 07/23/20 09:00 29 96/60 Mechanical Ventilator 60 07/23/20 09:00 96/60 07/23/20 08:45 90 15 98/65 (76) 100 07/23/20 08:30 89 27 102/59 (73) 100 07/23/20 08:15 88 21 98/64 (75) 100 07/23/20 08:00 Mechanical Ventilator Mechanical Ventilator Mechanical Ventilator 07/23/20 08:00 99.0 89 29 99/59 (72) 100 07/23/20 08:00 28 99/59 Mechanical Ventilator 100 07/23/20 08:00 26 98/64 Mechanical Ventilator 100 07/23/20 08:00 98/64 07/23/20 08:00 100 07/23/20 08:00 93 07/23/20 07:30 89 24 91/58 (69) 100 07/23/20 07:15 90 26 95/60 (72) 100 07/23/20 07:00 91 26 91/58 (69) 100 07/23/20 07:00 24 91/58 Mechanical Ventilator 100 07/23/20 07:00 24 95/60 Mechanical Ventilator 100 07/23/20 07:00 91/58 07/23/20 06:32 92 28 07/23/20 06:00 26 97/59 Mechanical Ventilator 100 07/23/20 06:00 26 97/59 Mechanical Ventilator 100 07/23/20 06:00 97/59 07/23/20 06:00 98.0 93 26 97/59 (72) 100 07/23/20 05:45 95 23 99/59 (72) 100 07/23/20 05:30 92 23 109/64 (79) 100 07/23/20 05:15 92 26 100 07/23/20 05:15 91 25 104/65 (78) 100 07/23/20 05:00 91 26 104/68 (80) 100 07/23/20 05:00 26 104/68 Mechanical Ventilator 100 07/23/20 05:00 26 104/68 Endotracheal Tube 100 07/23/20 05:00 104/68 07/23/20 04:45 92 25 105/66 (79) 100 07/23/20 04:30 93 26 105/64 (78) 100 07/23/20 04:15 91 27 108/68 (81) 100 07/23/20 04:08 106/65 07/23/20 04:00 98.9 91 26 106/65 (79) 100 07/23/20 04:00 91 07/23/20 04:00 26 108/68 Mechanical Ventilator 100 07/23/20 04:00 26 108/68 Mechanical Ventilator 100 07/23/20 04:00 108/68 07/23/20 04:00 100 07/23/20 04:00 Mechanical Ventilator Mechanical Ventilator Mechanical Ventilator 07/23/20 03:45 92 22 108/69 (82) 100 07/23/20 03:30 92 26 103/66 (78) 100 07/23/20 03:15 91 26 101/63 (76) 100 07/23/20 03:10 91 25 100 07/23/20 03:00 26 101/63 Mechanical Ventilator 100 07/23/20 03:00 26 101/63 Mechanical Ventilator 100 07/23/20 03:00 101/63 07/23/20 03:00 91 27 103/65 (78) 100 07/23/20 02:45 91 28 104/65 (78) 100 07/23/20 02:30 91 29 106/68 (81) 100 07/23/20 02:15 90 20 109/69 (82) 100 07/23/20 02:00 24 109/69 Mechanical Ventilator 100 07/23/20 02:00 24 109/69 Mechanical Ventilator 100 07/23/20 02:00 109/69 07/23/20 02:00 92 20 104/68 (80) 100 07/23/20 01:45 92 20 107/72 (84) 100 07/23/20 01:30 103 20 99/61 (74) 100 07/23/20 01:15 95 20 112/69 (83) 100 07/23/20 01:04 92 26 100 07/23/20 01:00 91 20 105/67 (80) 100 07/23/20 01:00 20 112/69 Mechanical Ventilator 100 07/23/20 01:00 20 112/69 Mechanical Ventilator 100 07/23/20 01:00 112/69 07/23/20 00:45 91 20 105/69 (81) 100 07/23/20 00:30 90 20 101/70 (80) 100 07/23/20 00:15 91 22 103/68 (80) 100 07/23/20 00:00 98.5 92 12 107/68 (81) 100 07/23/20 00:00 19 103/68 Mechanical Ventilator 100 07/23/20 00:00 20 103/68 Mechanical Ventilator 100 07/23/20 00:00 103/68 07/23/20 00:00 92 07/23/20 00:00 Mechanical Ventilator Mechanical Ventilator Mechanical Ventilator 07/22/20 23:52 23 101/69 Mechanical Ventilator 100 07/22/20 23:45 92 25 102/66 (78) 100 07/22/20 23:30 91 23 104/68 (80) 100 07/22/20 23:15 92 31 106/69 (81) 100 07/22/20 23:00 93 23 103/69 (80) 100 07/22/20 23:00 23 103/69 Mechanical Ventilator 100 07/22/20 23:00 23 103/69 Mechanical Ventilator 100 07/22/20 23:00 103/69 07/22/20 22:57 93 26 100 07/22/20 22:45 93 35 101/67 (78) 100 07/22/20 22:30 94 33 102/64 (77) 100 07/22/20 22:15 93 31 99/68 (78) 100 07/22/20 22:00 33 101/67 Mechanical Ventilator 100 07/22/20 22:00 33 101/67 Mechanical Ventilator 100 07/22/20 22:00 101/67 07/22/20 22:00 94 33 101/67 (78) 100 07/22/20 21:45 96 34 96/64 (75) 100 07/22/20 21:30 98 29 97/60 (72) 100 07/22/20 21:15 99 33 97/58 (71) 100 07/22/20 21:00 29 101/69 Mechanical Ventilator 100 07/22/20 21:00 28 101/69 Mechanical Ventilator 100 07/22/20 21:00 101/69 07/22/20 21:00 95 29 101/69 (80) 100 07/22/20 20:58 92 29 100 07/22/20 20:45 93 27 102/74 (83) 100 07/22/20 20:30 94 25 99/69 (79) 100 07/22/20 20:15 93 28 96/60 (72) 100 07/22/20 20:00 Mechanical Ventilator Mechanical Ventilator Mechanical Ventilator 07/22/20 20:00 94 07/22/20 20:00 28 87/70 Mechanical Ventilator 100 07/22/20 20:00 28 87/70 Mechanical Ventilator 100 07/22/20 20:00 87/70 07/22/20 20:00 98.3 93 27 96/66 (76) 100 07/22/20 20:00 100 07/22/20 19:45 93 26 98/67 (77) 100 07/22/20 19:30 92 27 92/69 (77) 100 07/22/20 19:15 92 29 87/62 (70) 100 07/22/20 19:00 94 28 92/66 (75) 100 07/22/20 19:00 28 92/66 Mechanical Ventilator 100 07/22/20 19:00 28 92/66 Mechanical Ventilator 100 07/22/20 19:00 92/66 07/22/20 18:55 94 27 100 07/22/20 18:45 93 34 91/65 (74) 100 07/22/20 18:30 92 34 90/64 (73) 100 07/22/20 18:15 96 34 86/64 (71) 100 07/22/20 18:00 99 34 88/61 (70) 100 07/22/20 18:00 30 88/61 Mechanical Ventilator 100 07/22/20 18:00 30 98/67 Endotracheal Tube 100 07/22/20 18:00 92/69 07/22/20 17:45 99 35 87/62 (70) 100 07/22/20 17:30 100 35 84/64 (71) 100 07/22/20 17:15 101 33 92/62 (72) 100 07/22/20 17:00 30 93/63 Mechanical Ventilator 100 07/22/20 17:00 30 93/63 Mechanical Ventilator 100 07/22/20 17:00 88/61 07/22/20 17:00 101 35 93/63 (73) 100 07/22/20 16:53 98.4 103 36 95/71 (79) 100 07/22/20 16:30 101 33 95/65 (75) 100 07/22/20 16:00 Mechanical Ventilator Mechanical Ventilator Mechanical Ventilator 07/22/20 16:00 110 07/22/20 16:00 29 94/53 Mechanical Ventilator 100 07/22/20 16:00 29 94/53 Mechanical Ventilator 100 07/22/20 16:00 93/63 07/22/20 16:00 100 07/22/20 16:00 105 28 94/47 (63) 100 07/22/20 16:00 Mechanical Ventilator Mechanical Ventilator Mechanical Ventilator 07/22/20 15:00 101 38 100 07/22/20 15:00 31 116/85 Mechanical Ventilator 100 07/22/20 15:00 29 116/85 Mechanical Ventilator 100 07/22/20 15:00 94/53 07/22/20 15:00 122 30 94/53 (67) 100 07/22/20 14:54 31 101/76 Mechanical Ventilator 100 07/22/20 14:30 132 32 101/68 (79) 100 07/22/20 14:00 116/85 07/22/20 14:00 134 35 116/85 (95) 100 07/22/20 13:30 129 36 104/75 (85) 97 Intake and Output 07/22/20 07/23/20 19:00 07:00 Intake Total 1010.0 ml 1411.25 ml Output Total 305 ml 367 ml Balance 705.0 ml 1044.25 ml Free Water 50 ml IV Total 1010.0 ml 1361.25 ml Output Urine Total 195 ml 330 ml Gastric Drainage Total 100 ml Chest Tube Drainage Total 10 ml 37 ml # Bowel Movements 2 Laboratory Tests 07/23/20 03:40: White Blood Count 15.7H, Red Blood Count 3.07L, Hemoglobin 8.4L, Hematocrit 28.0L, Mean Corpuscular Volume 91, Mean Corpuscular Hemoglobin 27.5, Mean Corpuscular Hemoglobin Concent 30.1L, Red Cell Distribution Width 17.1H, Platelet Count 358, Mean Platelet Volume 7.7, Neutrophils (%) (Auto) 61.4, L ymphocytes (%) (Auto) 18.7L, Monocytes (%) (Auto) 10.1H, Eosinophils (%) (Auto) 9.2H, Basophils (%) (Auto) 0.6, Sodium Level 138, Potassium Level 3.8, Chloride Level 98, Carbon Dioxide Level 34H, Anion Gap 6, Blood Urea Nitrogen 20H, Creatinine 0.7, Estimat Glomerular Filtration Rate > 60, Glucose Level 106, Uric Acid 6.3, Calcium Level 10.1, Phosphorus Level 3.0, Magnesium Level 1.8, Total Bilirubin 0.3, Aspartate Amino Transf (AST/SGOT) 54H, Alanine Aminotransferase (ALT/SGPT) 37, Alkaline Phosphatase 63, Total Protein 7.1, Albumin 2.6L, Globulin 4.5, Albumin/Globulin Ratio 0.6L 07/23/20 10:35: Arterial Blood pH 7.368, Arterial Blood Partial Pressure CO2 59.2*H, Arterial Blood Partial Pressure O2 71.6L, Arterial Blood HCO3 33.3H, Arterial Blood Oxygen Saturation 92.8L, Arterial Blood Base Excess 7.0H, Jeremiah Test Positive Height (Feet): 5 Height (Inches): 5.00 Weight (Pounds): 223 General Appearance: lethargic EENT: normal ENT inspection Neck: normal alignment Cardiovascular: normal peripheral pulses, normal rate, regular rhythm Respiratory/Chest: chest wall non-tender, lungs clear, normal breath sounds Abdomen: normal bowel sounds, non tender, soft Extremities: normal inspection Edema: no edema noted Arm (L), no edema noted Arm (R), no edema noted Leg (L), no edema noted Leg (R), no edema noted Pedal (L), no edema noted Pedal (R), no edema noted Generalized Neurologic: motor weakness Skin: normal pigmentation, warm/dry Assessment/Plan Problem List: (1) Hypoxia ICD Codes: R09.02 - Hypoxemia SNOMED: 170735265 (2) Respiratory failure ICD Codes: J96.90 - Respiratory failure, unspecified, unspecified whether with hypoxia or hypercapnia SNOMED: 749884431 (3) Respiratory distress ICD Codes: R06.03 - Acute respiratory distress; J12.82 - Pneumonia due to coronavirus disease 2019 SNOMED: 576791032 (4) Pneumonia due to COVID-19 virus ICD Codes: U07.1 - COVID-19; J12.82 - Pneumonia due to coronavirus disease 2019 SNOMED: 417572772379415171 Status: unchanged Assessment/Plan: vent abx id pulm f/u cbc bmp am Tank Del Cid DO Jul 23, 2020 13:22
--- NOTE | 2020-07-23 15:32 | Diagnostic Imaging Report ---
Indication: Chest pain, shortness of breath, pneumothorax, evaluation of findings on prior abnormal chest x-ray Technique: One view of the chest Comparison: 07/22/2020 Findings: Gas is now seen outlining both hemidiaphragms, previously definitely seen only outlining the right. Right chest tube, tracheostomy remain in place. Nasogastric tube has been placed. Previously demonstrated pneumothorax is largely or completely resolved. Bilateral infiltrates are unchanged. Chest and supraclavicular subcutaneous emphysema has improved considerably, particularly on the right. There is no considerable subcutaneous emphysema overlying the abdomen. Impression: Previously suspected pneumoperitoneum is confirmed by the presence of gas outlining both hemidiaphragms. Nearly or completely resolved right pneumothorax. Improved subcutaneous emphysema Satisfactory nasogastric intubation
--- NOTE | 2020-07-23 18:40 | NUR ---
0715: Received report from Elidia ELLINGTON. Pt remains trached and sedated at this time. Pt with patent R chest tube. Pt remains on Levophed. Pt with marrero and R femoral central line. Orders reviewed. Labs reviewed. 1000: Verbal orders from MD Elijah to get ABG. 1500: Drainage to chest tube noted. Dressing changed and secured. Will monitor closely. Air heard through trach. Respiratory made aware. Pt oxygen saturation 100% at this time.
--- NOTE | 2020-07-23 19:53 | NUR ---
NURSE NOTES: Received patient from Guillaume RN. Patient noted to be trached with a Shiely 7. Vent settings as follows: AC 15-400tv-60% FiO2 and peep of 5. Current SpO2 is 100%. RR 20, patient is sedated with RASS score of -2. NGT noted on low intermittent suctioning. R chest tube noted on low continuos suctioning. R fem TLC noted with Versed, fentanyl, and D51/2NS at 75 ml/hr. Current vitals are stable. NSR monitor. Peripheral pulses noted equal bilaterally. Pedal pulses noted equal and bilateral.
[2020-07-23] MEDS: Dyna-Hex 2% Top Sol 2oz TOPIC SCH (20:19)
--- NOTE | 2020-07-23 21:00 | NUR ---
NURSE NOTES: Patient suctioned and oral care performed. Levophed remains on hold, BP remains within normotensive parameter. RASS -2, NAD at this time, will continue to monitor.
--- NOTE | 2020-07-23 22:00 | NUR ---
NURSE NOTES: Patient repositioned and suctioned. Blood pressures remains stable.
[2020-07-24] VITALS (73 sets, daily range): BP systolic 89–141; BP diastolic 54–105
--- NOTE | 2020-07-24 | NUR ---
NURSE NOTES: Repositioned and oral care performed. Chest tube dressing changed, oozing small amount of blood on dressing. Patient remains calm at this time. NAD, blood pressures remains stable.
--- NOTE | 2020-07-24 02:00 | NUR ---
NURSE NOTES: Repositioned and suctioned. Blood tinge fluid from chest tube. VSS.
--- NOTE | 2020-07-24 04:00 | NUR ---
NURSE NOTES: Sponge bath given, oral care performed, bloody tinge fluid from chest tube. Lab draw performed. VSS, afebrile
[2020-07-24] MEDS: Meropenem 1 GM in NS 55 ML IVPB SCH ×3 (04:20→20:00)
[2020-07-24] MEDS ORDERED: fentaNYL 2500mcg/NS 250ml 250 ML IV SCH (05:00)
[2020-07-24 05:11] LABS: HEMATOCRIT 22.8 % (37.0-47.0); HEMOGLOBIN 7.1 G/DL (12.0-16.0); MEAN CORPUSCULAR VOLUME 91 FL (80-99); PLATELET COUNT 248 K/UL (150-450); RED BLOOD COUNT 2.49 M/UL (4.20-5.40); RED CELL DISTRIBUTION WIDTH 16.7 % (11.6-14.8); WHITE BLOOD COUNT 11.1 K/UL (4.8-10.8)
[2020-07-24 05:17] LABS: INR 1.1 (0.9-1.1)
[2020-07-24] MEDS: Midodrine 10mg tab GT SCH ×3 (05:22→22:00)
[2020-07-24] MEDS: fentaNYL 2500mcg/NS 250ml 250 ML IV PRN (05:23)
[2020-07-24 05:55] LABS: ALANINE AMINOTRANSFERASE 27 U/L (12-78); ALBUMIN 2.3 G/DL (3.4-5.0); ALBUMIN/GLOBULIN RATIO 0.6 (1.0-2.7); ALKALINE PHOSPHATASE 56 U/L (46-116); ANION GAP 4 mmol/L (5-15); ASPARTATE AMINO TRANSFERASE 39 U/L (15-37); BILIRUBIN,TOTAL 0.2 MG/DL (0.2-1.0); BLOOD UREA NITROGEN 16 mg/dL (7-18); CALCIUM 9.4 MG/DL (8.5-10.1); CARBON DIOXIDE 34 MMOL/L (21-32); CHLORIDE 100 MMOL/L (98-107); CREATININE 0.6 MG/DL (0.55-1.30); SODIUM 138 MMOL/L (136-145)
--- NOTE | 2020-07-24 06:00 | NUR ---
NURSE NOTES: 130 ml of bloody tinge fluid from chest tube overnight. Hg noted to be 7.1, left message for Dr. Christina, awaiting call back
[2020-07-24 06:12] LABS: PHOSPHORUS 2.3 MG/DL (2.5-4.9)
--- NOTE | 2020-07-24 06:30 | NUR ---
NURSE NOTES: Roseanna called back and ordered for 1 unit PRBC to be given stat. Currently BP remains stable. Afebrile./
--- NOTE | 2020-07-24 06:57 | Hematology/Onc Progress Note ---
Assessment/Plan Assessment/Plan # Deep vein thrombosis of the right calf --> given onoing anemia and low plts --> consider ivc if bleeding--once stable, needs it placed --> once stable, for radiology and ivc filter placement # Thrombocytopenia is due to infection/underlying covid19+++ --> ABX ceftriaxone -->zosyn-->off --> on steriods likely cause of initial wbc --> per pulm --> plt 107->156-->192-->205 --> smear reviewed # Leukocytosis due to Pneumonia due to COVID-19 virus --> per pulm rx -> sp remdesivir --> wbc 11.9-->11-->21 # Anemia due to chronic disease --> hgb goal is >7 --> transfuse prn --> ferritin is >1000 --> hold off on iron --> 10-->9.8->9-->8-->8.2-->9.4-->8.1-->9.9-->9.6-->9.5-->9.6--> 8.6-->11-->8.4-->7.1 --> 1 unit prbc 07/24 # Elevated ddimer due to covid19++ --> duplex legs is negative --> underlying covid rx # Hypoxia -> due to covid19 --> steriods as needed # Hypoxemia --> rx same as above # Respiratory failure --> on vent/trach --> per pulm # Diabetes mellitus out of control --> hgb a1c goal <7 # Poor prognosis # Dvt ppx ivc filter once more stable Appreciate consultation and dw RN Subjective Allergies: Coded Allergies: No Known Allergies (Unverified , 05/28/20) All Systems: reviewed and negative except above Subjective 06/10 nv, on vent, with ogt, on fentanyl and versed, plt stable 06/11 nv, vent adjusted is on ogt, meds reviewed 06/12 nv, vent, meds noted, labs noted, no bleeding, hgb 10.4 06/13 nv, is on vent, meds reviewed, no bleeding, cbc reviewed 06/14 nv, on vent, tachy, labs reviewed, gross hematuria, febrile overnight, abx 06/17 nv, on vent, labs noted, no major changes, feeling better overnight 06/18 nv, meds reviewed, labs noted, no major events, hgb 8.6 06/19 nv, remains intubated, with fluids, labs reviewed, meds noted 06/20 nv, intubated remains on restraints, meds noted as well, as labs 06/21 nv, remains on vent, on restraints, meds reviewed, labs noted 06/22: covering Dr. Del Cid no acute events 06/23 sedated, on vent, nv, intubated, meds reviewed, versed 06/24 nv, on vent, no night sweats, no bleeding, remains in icu 06/25 nv, on vent, icu, meds noted, no bleeding, comfortable 06/26 nv, on versed, icu, weaning parameters, labs noted 06/27 nv, overnight fighting vent, as per pulm fentanyl on board 06/28 nv, on vent, labs reviewed, as per pulm, meds noted 06/30 nv, icu, labs pending, is on fentanyl, versed, no new changes 07/01 nv, icu, is on vent, labs pending, no new changes per rn 07/02 nv, icu is on vent, labs noted, hgb is stable 07/03 nv, icu, is on vent, potential trrach when stable, cbc reviewed 07/04 icu, nv, labs are noted, stable for trach today dw Rn Dl 07/05 icu, nv, on vent, with ng and picc in place, labs noted, s/p trach 07/07 icu, nv, on tv, no bleeding, labs noted, meds reviewed 07/08 icu, nv, on tv, labs reviewed, meds noted, no bleeding 07/09 icu, nv, meds noted, no bleeding, blood transfusion was completed 07/10 icu, nv, labs ntoed, no bleeding, hgb improved, hgb 7.8 07/11 icu, nv, labs reviewed, hgb is improved, for ivcf if stabilizes 07/12 icu, nv, labs reviewed, meds noted, no bleeding, remains on vent 07/13 icu, on vent, nv, no bleeding, labs reviewed, no major events, dw rn 07/14 icu, on vent, nv, tolerating ngt feeds, bowen Rn, meds reviewed 07/15 icu, on vent, trach, tolerating ngt, meds noted, no bleeding 07/16 icu, vent, labs are noted, with trach, is stable, hgb 9.2 07/17 icu, had a bm overnight, remains on vent with trach, labs noted 07/18 icu, nv, labs are ntoed, no bleeding, on trach, on levophed 07/20 nc, icu, meds noted, v/t, no bleeding, labs noted, on versed 07/21 nv, trach/vent, tube feeds on hold, labs reviewed, icu 07/22 nv, icu, bp remains high, on v/t, labs noted, no bleeding 07/23 nv, ct is in place, on v/t, meds reviewed, in icu, on LEVO 07/24 nv, ct with blood secretions, to get 1 unit prbc today, icu Objective Objective Current Medications Medications (Trade) Dose Ordered Sig/Zelda Route PRN Reason Start Time Stop Time Status Last Admin Dose Admin Acetaminophen (Tylenol) 650 mg Q4H PRN NG Temp >100.5 06/29/20 10:15 07/29/20 10:14 07/20/20 18:12 Acetaminophen (Tylenol) 650 mg Q6H PRN NG Mild Pain (Pain Scale 1-3) 06/29/20 10:15 07/29/20 10:14 07/22/20 11:56 Calcitonin [employer] (Miacalcin) 1 sprays DAILY NASAL 07/22/20 14:00 10/20/20 13:59 07/23/20 09:13 Chlorhexidine Gluconate (Inna-Hex 2%) 1 applic DAILY@2000 TOPIC 07/20/20 20:00 10/18/20 19:59 07/23/20 20:19 Dextrose (Dextrose 50%) 25 ml Q30M PRN IV Hypoglycemia 06/05/20 10:45 09/03/20 10:44 Dextrose (Dextrose 50%) 50 ml Q30M PRN IV Hypoglycemia 06/05/20 10:45 09/03/20 10:44 Dextrose/Sodium Chloride 1,000 ml @ 75 mls/hr [id number] IV 07/20/20 12:30 08/19/20 12:29 07/23/20 18:39 Enoxaparin Sodium (Lovenox) 110 mg EVERY 12 HOURS SUBQ 07/17/20 21:00 10/15/20 20:59 07/23/20 20:19 Fentanyl Citrate 250 ml @ 0 mls/hr Q24H PRN IV . 07/22/20 14:00 07/24/20 13:59 07/24/20 05:23 Guaifenesin/ Codeine Phosphate (Robitussin with codeine) 5 ml Q6H PRN NG For Cough 07/14/20 14:15 08/13/20 14:14 07/18/20 21:44 Lansoprazole (Prevacid) 30 mg DAILY GT 07/18/20 09:00 08/09/20 08:59 07/23/20 09:12 Meropenem 1 gm/ Sodium Chloride 55 ml @ 110 mls/hr Q8H IVPB 07/22/20 12:00 07/27/20 11:59 07/24/20 04:20 Midazolam HCl 200 ml @ 0 mls/hr Q24H PRN IV sedation 07/22/20 14:06 07/29/20 14:05 07/23/20 23:04 Midodrine (Pro-Amatine) 10 mg Q8HR GT 06/30/20 14:00 09/12/20 13:59 07/24/20 05:22 Norepinephrine Bitartrate 8 mg/ Dextrose 250 ml @ 0 mls/hr Q24H IV 07/22/20 13:00 07/25/20 12:59 07/23/20 04:08 Quetiapine Fumarate (SEROqueL) 50 mg Q12HR GT 07/16/20 13:30 08/30/20 13:29 07/23/20 20:19 Last 24 Hour Vital Signs Date Time Temp Pulse Resp B/P (MAP) Pulse Ox O2 Delivery O2 Flow Rate FiO2 07/24/20 06:31 96 18 07/24/20 06:15 104 50 115/59 (77) 90 07/24/20 06:00 99 30 105/65 (78) 99 07/24/20 06:00 18 102/60 Mechanical Ventilator 40 07/24/20 06:00 18 102/60 Mechanical Ventilator 40 07/24/20 05:30 98 32 104/64 (77) 100 07/24/20 05:23 18 99/66 Mechanical Ventilator 50 07/24/20 05:00 98 27 108/64 (79) 100 07/24/20 05:00 18 104/64 Mechanical Ventilator 50 07/24/20 05:00 18 104/64 Mechanical Ventilator 50 07/24/20 04:30 98 27 96/60 (72) 100 07/24/20 04:00 97 07/24/20 04:00 99.4 97 27 101/61 (74) 100 07/24/20 04:00 Mechanical Ventilator Mechanical Ventilator Mechanical Ventilator 07/24/20 04:00 18 96/60 Mechanical Ventilator 50 07/24/20 04:00 18 96/60 Mechanical Ventilator 50 07/24/20 04:00 50 07/24/20 03:40 98 33 50 07/24/20 03:30 103 36 112/74 (87) 98 07/24/20 03:00 18 105/63 Mechanical Ventilator 50 07/24/20 03:00 18 105/63 Mechanical Ventilator 50 07/24/20 03:00 95 31 96/61 (73) 99 07/24/20 02:30 100 32 108/67 (81) 96 07/24/20 02:00 96 30 102/60 (74) 96 07/24/20 02:00 18 102/60 Mechanical Ventilator 50 07/24/20 02:00 18 102/60 Mechanical Ventilator 50 07/24/20 01:30 95 26 98/58 (71) 99 07/24/20 01:00 96 25 100/59 (73) 100 07/24/20 01:00 18 99/58 Mechanical Ventilator 55 07/24/20 01:00 18 95/58 Mechanical Ventilator 50 07/24/20 00:30 98 27 95/58 (70) 100 07/24/20 00:00 55 07/24/20 00:00 Mechanical Ventilator Mechanical Ventilator Mechanical Ventilator 07/24/20 00:00 99.1 98 28 103/61 (75) 100 07/24/20 00:00 18 100/58 Mechanical Ventilator 55 07/24/20 00:00 18 100/58 Mechanical Ventilator 55 07/24/20 00:00 96 07/23/20 23:30 107 37 113/72 (86) 100 07/23/20 23:24 90 22 55 07/23/20 23:04 18 93/60 Mechanical Ventilator 55 07/23/20 23:00 18 93/60 Mechanical Ventilator 55 07/23/20 23:00 18 93/60 Mechanical Ventilator 55 07/23/20 23:00 94 27 93/60 (71) 94 07/23/20 22:30 94 27 86/54 (65) 93 07/23/20 22:00 99.2 90 28 95/66 (76) 95 07/23/20 22:00 18 95/59 Mechanical Ventilator 50 07/23/20 22:00 18 95/57 Mechanical Ventilator 50 07/23/20 21:30 98 27 98/63 (75) 98 07/23/20 21:00 18 103/67 Mechanical Ventilator 50 07/23/20 21:00 18 103/67 Mechanical Ventilator 50 07/23/20 21:00 96 24 100/60 (73) 99 07/23/20 20:30 100 27 99/70 (80) 99 07/23/20 20:00 Mechanical Ventilator Mechanical Ventilator Mechanical Ventilator 07/23/20 20:00 92 07/23/20 20:00 50 07/23/20 20:00 95 27 97/65 (76) 100 07/23/20 20:00 18 96/65 Mechanical Ventilator 50 07/23/20 20:00 18 96/65 Mechanical Ventilator 50 07/23/20 19:30 98.9 95 25 98/66 (77) 100 07/23/20 19:15 93 23 60 07/23/20 19:00 96 27 95/65 (75) 100 07/23/20 19:00 18 99/62 Mechanical Ventilator 60 07/23/20 19:00 18 99/65 Mechanical Ventilator 60 07/23/20 18:30 96 27 94/64 (74) 100 07/23/20 18:15 96 27 97/68 (78) 100 07/23/20 18:00 27 97/68 Mechanical Ventilator 60 07/23/20 18:00 27 97/68 Mechanical Ventilator 60 07/23/20 18:00 97/68 07/23/20 18:00 99 22 97/68 (78) 100 07/23/20 18:00 95 25 97/68 (78) 100 07/23/20 17:45 96 27 103/67 (79) 100 07/23/20 17:30 97 27 97/69 (78) 100 07/23/20 17:00 27 97/69 Mechanical Ventilator 60 07/23/20 17:00 27 97/69 Mechanical Ventilator 60 07/23/20 17:00 97/69 07/23/20 17:00 98 26 85/72 (76) 99 07/23/20 16:15 103 29 98/69 (79) 99 07/23/20 16:00 100 07/23/20 16:00 60 07/23/20 16:00 99.1 102 28 98/69 (79) 99 07/23/20 16:00 31 98/69 Mechanical Ventilator 60 07/23/20 16:00 31 98/69 Mechanical Ventilator 60 07/23/20 16:00 98/69 07/23/20 16:00 Mechanical Ventilator Mechanical Ventilator Mechanical Ventilator 07/23/20 15:45 106 35 113/75 (88) 97 07/23/20 15:30 101 30 103/61 (75) 98 07/23/20 15:20 63 25 60 07/23/20 15:15 98 17 104/66 (79) 98 07/23/20 15:00 100 32 103/61 (75) 100 07/23/20 15:00 28 103/61 Mechanical Ventilator 60 07/23/20 15:00 38 101/62 Mechanical Ventilator 60 07/23/20 15:00 103/61 07/23/20 14:00 97 31 91/64 (73) 99 07/23/20 14:00 30 91/64 Mechanical Ventilator 60 07/23/20 14:00 31 91/64 Mechanical Ventilator 60 07/23/20 14:00 91/64 07/23/20 13:45 97 31 100/58 (72) 99 07/23/20 13:30 97 30 93/63 (73) 100 07/23/20 13:15 96 28 93/63 (73) 99 07/23/20 13:00 29 93/60 Mechanical Ventilator 60 07/23/20 13:00 29 93/60 Endotracheal Tube 60 07/23/20 13:00 93/60 07/23/20 13:00 97 15 93/60 (71) 99 07/23/20 13:00 100 07/23/20 12:45 97 18 95/60 (72) 100 07/23/20 12:30 98 23 99/57 (71) 99 07/23/20 12:15 98 35 93/58 (70) 99 07/23/20 12:00 Mechanical Ventilator Mechanical Ventilator Mechanical Ventilator 07/23/20 12:00 96 07/23/20 12:00 95 26 93/60 (71) 100 07/23/20 12:00 31 93/58 Mechanical Ventilator 60 07/23/20 12:00 28 93/58 Mechanical Ventilator 60 07/23/20 12:00 93/58 07/23/20 12:00 60 07/23/20 12:00 99.2 102 23 101/60 (74) 95 07/23/20 11:45 97 33 92/61 (71) 100 07/23/20 11:30 97 24 93/57 (69) 99 07/23/20 11:15 97 31 100/58 (72) 99 07/23/20 11:00 26 91/60 Mechanical Ventilator 60 07/23/20 11:00 29 91/60 Mechanical Ventilator 60 07/23/20 11:00 91/60 07/23/20 11:00 96 24 91/60 (70) 100 07/23/20 10:59 98 27 60 07/23/20 10:45 102 29 96/63 (74) 98 07/23/20 10:30 104 25 97/67 (77) 96 07/23/20 10:15 96 24 88/56 (67) 98 07/23/20 10:00 29 88/53 Mechanical Ventilator 60 07/23/20 10:00 27 88/53 Mechanical Ventilator 60 07/23/20 10:00 88/53 07/23/20 10:00 97 27 88/53 (65) 97 07/23/20 09:45 95 28 81/48 (59) 98 07/23/20 09:30 97 24 96/54 (68) 97 07/23/20 09:16 94 26 60 07/23/20 09:15 93 27 101/66 (78) 98 07/23/20 09:00 92 31 96/60 (72) 100 07/23/20 09:00 29 96/60 Mechanical Ventilator 60 07/23/20 09:00 29 96/60 Mechanical Ventilator 60 07/23/20 09:00 96/60 07/23/20 08:45 90 15 98/65 (76) 100 07/23/20 08:44 91 25 70 07/23/20 08:30 89 27 102/59 (73) 100 07/23/20 08:15 88 21 98/64 (75) 100 07/23/20 08:00 Mechanical Ventilator Mechanical Ventilator Mechanical Ventilator 07/23/20 08:00 99.0 89 29 99/59 (72) 100 07/23/20 08:00 28 99/59 Mechanical Ventilator 100 07/23/20 08:00 26 98/64 Mechanical Ventilator 100 07/23/20 08:00 98/64 07/23/20 08:00 100 07/23/20 08:00 93 07/23/20 07:30 91 23 100 07/23/20 07:30 89 24 91/58 (69) 100 07/23/20 07:15 90 26 95/60 (72) 100 07/23/20 07:00 91 26 91/58 (69) 100 07/23/20 07:00 24 91/58 Mechanical Ventilator 100 07/23/20 07:00 24 95/60 Mechanical Ventilator 100 07/23/20 07:00 91/58 07/23/20 06:32 92 28 07/23/20 06:00 26 97/59 Mechanical Ventilator 100 07/23/20 06:00 26 97/59 Mechanical Ventilator 100 07/23/20 06:00 97/59 07/23/20 06:00 98.0 93 26 97/59 (72) 100 07/23/20 05:45 95 23 99/59 (72) 100 07/23/20 05:30 92 23 109/64 (79) 100 07/23/20 05:15 92 26 100 07/23/20 05:15 91 25 104/65 (78) 100 07/23/20 05:00 91 26 104/68 (80) 100 07/23/20 05:00 26 104/68 Mechanical Ventilator 100 07/23/20 05:00 26 104/68 Endotracheal Tube 100 07/23/20 05:00 104/68 07/23/20 04:45 92 25 105/66 (79) 100 07/23/20 04:30 93 26 105/64 (78) 100 07/23/20 04:15 91 27 108/68 (81) 100 07/23/20 04:08 106/65 07/23/20 04:00 98.9 91 26 106/65 (79) 100 07/23/20 04:00 91 07/23/20 04:00 26 108/68 Mechanical Ventilator 100 07/23/20 04:00 26 108/68 Mechanical Ventilator 100 07/23/20 04:00 108/68 07/23/20 04:00 100 07/23/20 04:00 Mechanical Ventilator Mechanical Ventilator Mechanical Ventilator 07/23/20 03:45 92 22 108/69 (82) 100 07/23/20 03:30 92 26 103/66 (78) 100 07/23/20 03:15 91 26 101/63 (76) 100 07/23/20 03:10 91 25 100 07/23/20 03:00 26 101/63 Mechanical Ventilator 100 07/23/20 03:00 26 101/63 Mechanical Ventilator 100 07/23/20 03:00 101/63 07/23/20 03:00 91 27 103/65 (78) 100 07/23/20 02:45 91 28 104/65 (78) 100 07/23/20 02:30 91 29 106/68 (81) 100 07/23/20 02:15 90 20 109/69 (82) 100 07/23/20 02:00 24 109/69 Mechanical Ventilator 100 07/23/20 02:00 24 109/69 Mechanical Ventilator 100 07/23/20 02:00 109/69 07/23/20 02:00 92 20 104/68 (80) 100 07/23/20 01:45 92 20 107/72 (84) 100 07/23/20 01:30 103 20 99/61 (74) 100 07/23/20 01:15 95 20 112/69 (83) 100 07/23/20 01:04 92 26 100 07/23/20 01:00 91 20 105/67 (80) 100 07/23/20 01:00 20 112/69 Mechanical Ventilator 100 07/23/20 01:00 20 112/69 Mechanical Ventilator 100 07/23/20 01:00 112/69 07/23/20 00:45 91 20 105/69 (81) 100 07/23/20 00:30 90 20 101/70 (80) 100 07/23/20 00:15 91 22 103/68 (80) 100 07/23/20 00:00 98.5 92 12 107/68 (81) 100 07/23/20 00:00 19 103/68 Mechanical Ventilator 100 07/23/20 00:00 20 103/68 Mechanical Ventilator 100 07/23/20 00:00 103/68 07/23/20 00:00 92 07/23/20 00:00 Mechanical Ventilator Mechanical Ventilator Mechanical Ventilator 07/22/20 23:52 23 101/69 Mechanical Ventilator 100 07/22/20 23:45 92 25 102/66 (78) 100 07/22/20 23:30 91 23 104/68 (80) 100 07/22/20 23:15 92 31 106/69 (81) 100 07/22/20 23:00 93 23 103/69 (80) 100 07/22/20 23:00 23 103/69 Mechanical Ventilator 100 07/22/20 23:00 23 103/69 Mechanical Ventilator 100 07/22/20 23:00 103/69 07/22/20 22:57 93 26 100 07/22/20 22:45 93 35 101/67 (78) 100 07/22/20 22:30 94 33 102/64 (77) 100 07/22/20 22:15 93 31 99/68 (78) 100 07/22/20 22:00 33 101/67 Mechanical Ventilator 100 07/22/20 22:00 33 101/67 Mechanical Ventilator 100 07/22/20 22:00 101/67 07/22/20 22:00 94 33 101/67 (78) 100 07/22/20 21:45 96 34 96/64 (75) 100 07/22/20 21:30 98 29 97/60 (72) 100 07/22/20 21:15 99 33 97/58 (71) 100 07/22/20 21:00 29 101/69 Mechanical Ventilator 100 07/22/20 21:00 28 101/69 Mechanical Ventilator 100 07/22/20 21:00 101/69 07/22/20 21:00 95 29 101/69 (80) 100 07/22/20 20:58 92 29 100 07/22/20 20:45 93 27 102/74 (83) 100 07/22/20 20:30 94 25 99/69 (79) 100 07/22/20 20:15 93 28 96/60 (72) 100 07/22/20 20:00 Mechanical Ventilator Mechanical Ventilator Mechanical Ventilator 07/22/20 20:00 94 07/22/20 20:00 28 87/70 Mechanical Ventilator 100 07/22/20 20:00 28 87/70 Mechanical Ventilator 100 07/22/20 20:00 87/70 07/22/20 20:00 98.3 93 27 96/66 (76) 100 07/22/20 20:00 100 07/22/20 19:45 93 26 98/67 (77) 100 07/22/20 19:30 92 27 92/69 (77) 100 07/22/20 19:15 92 29 87/62 (70) 100 07/22/20 19:00 94 28 92/66 (75) 100 07/22/20 19:00 28 92/66 Mechanical Ventilator 100 07/22/20 19:00 28 92/66 Mechanical Ventilator 100 07/22/20 19:00 92/66 07/22/20 18:55 94 27 100 07/22/20 18:45 93 34 91/65 (74) 100 07/22/20 18:30 92 34 90/64 (73) 100 07/22/20 18:15 96 34 86/64 (71) 100 07/22/20 18:00 99 34 88/61 (70) 100 07/22/20 18:00 30 88/61 Mechanical Ventilator 100 07/22/20 18:00 30 98/67 Endotracheal Tube 100 07/22/20 18:00 92/69 07/22/20 17:45 99 35 87/62 (70) 100 07/22/20 17:30 100 35 84/64 (71) 100 07/22/20 17:15 101 33 92/62 (72) 100 07/22/20 17:00 30 93/63 Mechanical Ventilator 100 07/22/20 17:00 30 93/63 Mechanical Ventilator 100 07/22/20 17:00 88/61 07/22/20 17:00 101 35 93/63 (73) 100 07/22/20 16:53 98.4 103 36 95/71 (79) 100 07/22/20 16:30 101 33 95/65 (75) 100 07/22/20 16:00 Mechanical Ventilator Mechanical Ventilator Mechanical Ventilator 07/22/20 16:00 110 07/22/20 16:00 29 94/53 Mechanical Ventilator 100 07/22/20 16:00 29 94/53 Mechanical Ventilator 100 07/22/20 16:00 93/63 07/22/20 16:00 100 07/22/20 16:00 105 28 94/47 (63) 100 07/22/20 16:00 Mechanical Ventilator Mechanical Ventilator Mechanical Ventilator 07/22/20 15:00 101 38 100 07/22/20 15:00 31 116/85 Mechanical Ventilator 100 07/22/20 15:00 29 116/85 Mechanical Ventilator 100 07/22/20 15:00 94/53 07/22/20 15:00 122 30 94/53 (67) 100 07/22/20 14:54 31 101/76 Mechanical Ventilator 100 07/22/20 14:30 132 32 101/68 (79) 100 07/22/20 14:00 116/85 07/22/20 14:00 134 35 116/85 (95) 100 07/22/20 13:30 129 36 104/75 (85) 97 07/22/20 13:00 107 14 52/27 (35) 83 07/22/20 13:00 52/27 07/22/20 12:30 109 29 130/70 (90) 100 07/22/20 12:30 52/26 07/22/20 12:15 100 07/22/20 12:00 Mechanical Ventilator Mechanical Ventilator Mechanical Ventilator 07/22/20 12:00 65 38 70/54 (59) 100 07/22/20 12:00 100 07/22/20 12:00 128 07/22/20 11:50 62 54 65 07/22/20 11:00 116 36 121/85 (97) 100 07/22/20 10:00 106 41 144/84 (104) 99 07/22/20 09:00 114 28 65 07/22/20 09:00 97.0 118 30 156/82 (106) 100 07/22/20 08:00 107 07/22/20 08:00 Mechanical Ventilator Mechanical Ventilator Mechanical Ventilator 07/22/20 08:00 50 07/22/20 08:00 110 29 144/89 (107) 99 07/22/20 07:30 89 28 173/81 (111) 98 07/22/20 07:25 102 26 65 07/22/20 07:00 109 28 149/90 (109) 100 Intake and Output 07/23/20 07/24/20 19:00 07:00 Intake Total 1449.045 ml 1168 ml Output Total 532 ml 450 ml Balance 917.045 ml 718 ml Free Water 30 ml IV Total 1419.045 ml 1168 ml Output Urine Total 495 ml 320 ml Chest Tube Drainage Total 37 ml 130 ml Labs Test 07/22/20 01:35 07/22/20 04:02 07/23/20 03:40 07/23/20 10:35 White Blood Count 16.2 K/UL (4.8-10.8) 15.7 K/UL (4.8-10.8) Red Blood Count 4.08 M/UL (4.20-5.40) 3.07 M/UL (4.20-5.40) Hemoglobin 11.3 G/DL (12.0-16.0) 8.4 G/DL (12.0-16.0) Hematocrit 37.7 % (37.0-47.0) 28.0 % (37.0-47.0) Mean Corpuscular Volume 93 FL (80-99) 91 FL (80-99) Mean Corpuscular Hemoglobin 27.7 PG (27.0-31.0) 27.5 PG (27.0-31.0) Mean Corpuscular Hemoglobin Concent 30.0 G/DL (32.0-36.0) 30.1 G/DL (32.0-36.0) Red Cell Distribution Width 16.8 % (11.6-14.8) 17.1 % (11.6-14.8) Platelet Count 420 K/UL (150-450) 358 K/UL (150-450) Mean Platelet Volume 7.7 FL (6.5-10.1) 7.7 FL (6.5-10.1) Neutrophils (%) (Auto) 68.5 % (45.0-75.0) 61.4 % (45.0-75.0) Lymphocytes (%) (Auto) 19.8 % (20.0-45.0) 18.7 % (20.0-45.0) Monocytes (%) (Auto) 5.6 % (1.0-10.0) 10.1 % (1.0-10.0) Eosinophils (%) (Auto) 5.3 % (0.0-3.0) 9.2 % (0.0-3.0) Basophils (%) (Auto) 0.8 % (0.0-2.0) 0.6 % (0.0-2.0) Erythrocyte Sedimentation Rate 20 MM/HR (0-20) Prothrombin Time 12.2 SEC (9.30-11.50) Prothromb Time International Ratio 1.1 (0.9-1.1) Sodium Level 135 MMOL/L (136-145) 138 MMOL/L (136-145) Potassium Level 4.5 MMOL/L (3.5-5.1) 3.8 MMOL/L (3.5-5.1) Chloride Level 94 MMOL/L (98-107) 98 MMOL/L (98-107) Carbon Dioxide Level 33 MMOL/L (21-32) 34 MMOL/L (21-32) Anion Gap 8 mmol/L (5-15) 6 mmol/L (5-15) Blood Urea Nitrogen 15 mg/dL (7-18) 20 mg/dL (7-18) Creatinine 0.6 MG/DL (0.55-1.30) 0.7 MG/DL (0.55-1.30) Estimat Glomerular Filtration Rate > 60 mL/min (>60) > 60 mL/min (>60) Glucose Level 133 MG/DL (74-106) 106 MG/DL (74-106) Calcium Level 11.0 MG/DL (8.5-10.1) 10.1 MG/DL (8.5-10.1) Phosphorus Level 4.7 MG/DL (2.5-4.9) 3.0 MG/DL (2.5-4.9) Magnesium Level 2.0 MG/DL (1.8-2.4) 1.8 MG/DL (1.8-2.4) Total Bilirubin 0.5 MG/DL (0.2-1.0) 0.3 MG/DL (0.2-1.0) Aspartate Amino Transf (AST/SGOT) 42 U/L (15-37) 54 U/L (15-37) Alanine Aminotransferase (ALT/SGPT) 24 U/L (12-78) 37 U/L (12-78) Alkaline Phosphatase 99 U/L (46-116) 63 U/L (46-116) C-Reactive Protein, Quantitative 8.6 mg/dL (0.00-0.90) Total Protein 9.8 G/DL (6.4-8.2) 7.1 G/DL (6.4-8.2) Albumin 3.6 G/DL (3.4-5.0) 2.6 G/DL (3.4-5.0) Globulin 6.2 g/dL 4.5 g/dL Albumin/Globulin Ratio 0.6 (1.0-2.7) 0.6 (1.0-2.7) Amylase Level 73 U/L (25-115) Lipase 244 U/L (73-393) Uric Acid 6.3 MG/DL (2.6-7.2) Arterial Blood pH 7.368 (7.350-7.450) Arterial Blood Partial Pressure CO2 59.2 mmHg (35.0-45.0) Arterial Blood Partial Pressure O2 71.6 mmHg (75.0-100.0) Arterial Blood HCO3 33.3 mmol/L (22.0-26.0) Arterial Blood Oxygen Saturation 92.8 % (95-100) Arterial Blood Base Excess 7.0 (-2-2) Jeremiah Test Positive Test 07/24/20 04:00 White Blood Count 11.1 K/UL (4.8-10.8) Red Blood Count 2.49 M/UL (4.20-5.40) Hemoglobin 7.1 G/DL (12.0-16.0) Hematocrit 22.8 % (37.0-47.0) Mean Corpuscular Volume 91 FL (80-99) Mean Corpuscular Hemoglobin 28.4 PG (27.0-31.0) Mean Corpuscular Hemoglobin Concent 31.2 G/DL (32.0-36.0) Red Cell Distribution Width 16.7 % (11.6-14.8) Platelet Count 248 K/UL (150-450) Mean Platelet Volume 7.4 FL (6.5-10.1) Neutrophils (%) (Auto) % (45.0-75.0) Lymphocytes (%) (Auto) % (20.0-45.0) Monocytes (%) (Auto) % (1.0-10.0) Eosinophils (%) (Auto) % (0.0-3.0) Basophils (%) (Auto) % (0.0-2.0) Prothrombin Time 12.4 SEC (9.30-11.50) Prothromb Time International Ratio 1.1 (0.9-1.1) Activated Partial Thromboplast Time 34 SEC (23-33) Sodium Level 138 MMOL/L (136-145) Potassium Level 4.0 MMOL/L (3.5-5.1) Chloride Level 100 MMOL/L (98-107) Carbon Dioxide Level 34 MMOL/L (21-32) Anion Gap 4 mmol/L (5-15) Blood Urea Nitrogen 16 mg/dL (7-18) Creatinine 0.6 MG/DL (0.55-1.30) Estimat Glomerular Filtration Rate > 60 mL/min (>60) Glucose Level 96 MG/DL (74-106) Calcium Level 9.4 MG/DL (8.5-10.1) Phosphorus Level 2.3 MG/DL (2.5-4.9) Magnesium Level 1.6 MG/DL (1.8-2.4) Total Bilirubin 0.2 MG/DL (0.2-1.0) Aspartate Amino Transf (AST/SGOT) 39 U/L (15-37) Alanine Aminotransferase (ALT/SGPT) 27 U/L (12-78) Alkaline Phosphatase 56 U/L (46-116) C-Reactive Protein, Quantitative 8.2 mg/dL (0.00-0.90) Pro-B-Type Natriuretic Peptide 583 pg/mL (0-125) Total Protein 6.3 G/DL (6.4-8.2) Albumin 2.3 G/DL (3.4-5.0) Globulin 4.0 g/dL Albumin/Globulin Ratio 0.6 (1.0-2.7) Height (Feet): 5 Height (Inches): 5.00 Weight (Pounds): 223 Objective GeNL: nv HEENT: ngt++ Pulm: vent/trach++ CV: rrr Abd: soft, nt, nd Ext: no cce Myron Condon MD Jul 24, 2020 06:57
--- NOTE | 2020-07-24 07:09 | NUR ---
NURSE HAND-OFF REPORT: SBAR given to Sagehodan RN
--- NOTE | 2020-07-24 07:19 | NUR ---
RESPIRATORY NOTE: PT received on AC/VC: 15, 400 40%,+5. Alarms are on and audible. Vent circuit is secure and out of the way. Airway is secure and patent. No s/s of acute respiratory distress noted at this time. Will continue to closely monitor.
[2020-07-24] MEDS: D5 1/2NS 1,000 ML IV SCH ×2 (08:04→22:00)
[2020-07-24] MEDS: Enoxaparin 120 mg inj SUBQ SCH ×2 (09:00→20:03)
[2020-07-24] MEDS: Acetaminophen 650mg/20.3ml NG PRN (09:04)
--- NOTE | 2020-07-24 09:50 | NUR ---
RADIOLOGY DEPT., CHEST X-RAY DONE.-P.DYE
--- NOTE | 2020-07-24 09:51 | Pre-Procedure Note/Attestation ---
Pre-Procedure Note/Attestation Complete Prior to Procedure Planned Procedure: not applicable Procedure Narrative: egd/peg Indications for Procedure Pre-Operative Diagnosis: dysphagia Attestation I attest that I discussed the nature of the procedure; its benefits; risks and complications; and alternatives (and the risks and benefits of such alternatives), prior to the procedure, with the patient (or the patient's legal school admissions representative). I attest that, if there was a reasonable possibility of needing a blood transfu alexandra, the patient (or the patient's legal school admissions representative) was given the [facility] standardized written summary, pursuant to the Howie Bill Blood Safety Act ([place] Health and Safety Code # 1645, as amended). I attest that I re-evaluated the patient just prior to the surgery and that there has been no change in the patient's H&P, except as documented below: Ryan Strong MD Jul 24, 2020 09:51
--- NOTE | 2020-07-24 09:55 | General Progress Note ---
Subjective Constitutional: Reports: weakness Allergies: Coded Allergies: No Known Allergies (Unverified , 05/28/20) All Systems: reviewed and negative except above Subjective trach vent ng in icu Objective Last 24 Hour Vital Signs Date Time Temp Pulse Resp B/P (MAP) Pulse Ox O2 Delivery O2 Flow Rate FiO2 07/24/20 07:00 101 33 104/63 (77) 91 07/24/20 07:00 16 104/63 Mechanical Ventilator 40 07/24/20 07:00 18 104/63 Mechanical Ventilator 40 07/24/20 06:31 96 18 07/24/20 06:30 97 32 105/62 (76) 92 07/24/20 06:15 104 50 115/59 (77) 90 07/24/20 06:00 99 30 105/65 (78) 99 07/24/20 06:00 18 102/60 Mechanical Ventilator 40 07/24/20 06:00 18 102/60 Mechanical Ventilator 40 07/24/20 05:30 98 32 104/64 (77) 100 07/24/20 05:23 18 99/66 Mechanical Ventilator 50 07/24/20 05:00 98 27 108/64 (79) 100 07/24/20 05:00 18 104/64 Mechanical Ventilator 50 07/24/20 05:00 18 104/64 Mechanical Ventilator 50 07/24/20 04:30 98 27 96/60 (72) 100 07/24/20 04:00 97 07/24/20 04:00 99.4 97 27 101/61 (74) 100 07/24/20 04:00 Mechanical Ventilator Mechanical Ventilator Mechanical Ventilator 07/24/20 04:00 18 96/60 Mechanical Ventilator 50 07/24/20 04:00 18 96/60 Mechanical Ventilator 50 07/24/20 04:00 50 07/24/20 03:40 98 33 50 07/24/20 03:30 103 36 112/74 (87) 98 07/24/20 03:00 18 105/63 Mechanical Ventilator 50 07/24/20 03:00 18 105/63 Mechanical Ventilator 50 07/24/20 03:00 95 31 96/61 (73) 99 07/24/20 02:30 100 32 108/67 (81) 96 07/24/20 02:00 96 30 102/60 (74) 96 07/24/20 02:00 18 102/60 Mechanical Ventilator 50 07/24/20 02:00 18 102/60 Mechanical Ventilator 50 07/24/20 01:30 95 26 98/58 (71) 99 07/24/20 01:00 96 25 100/59 (73) 100 07/24/20 01:00 18 99/58 Mechanical Ventilator 55 07/24/20 01:00 18 95/58 Mechanical Ventilator 50 07/24/20 00:30 98 27 95/58 (70) 100 07/24/20 00:00 55 07/24/20 00:00 Mechanical Ventilator Mechanical Ventilator Mechanical Ventilator 07/24/20 00:00 99.1 98 28 103/61 (75) 100 07/24/20 00:00 18 100/58 Mechanical Ventilator 55 07/24/20 00:00 18 100/58 Mechanical Ventilator 55 07/24/20 00:00 96 07/23/20 23:30 107 37 113/72 (86) 100 07/23/20 23:24 90 22 55 07/23/20 23:04 18 93/60 Mechanical Ventilator 55 07/23/20 23:00 18 93/60 Mechanical Ventilator 55 07/23/20 23:00 18 93/60 Mechanical Ventilator 55 07/23/20 23:00 94 27 93/60 (71) 94 07/23/20 22:30 94 27 86/54 (65) 93 07/23/20 22:00 99.2 90 28 95/66 (76) 95 07/23/20 22:00 18 95/59 Mechanical Ventilator 50 07/23/20 22:00 18 95/57 Mechanical Ventilator 50 07/23/20 21:30 98 27 98/63 (75) 98 07/23/20 21:00 18 103/67 Mechanical Ventilator 50 07/23/20 21:00 18 103/67 Mechanical Ventilator 50 07/23/20 21:00 96 24 100/60 (73) 99 07/23/20 20:30 100 27 99/70 (80) 99 07/23/20 20:00 Mechanical Ventilator Mechanical Ventilator Mechanical Ventilator 07/23/20 20:00 92 07/23/20 20:00 50 07/23/20 20:00 95 27 97/65 (76) 100 07/23/20 20:00 18 96/65 Mechanical Ventilator 50 07/23/20 20:00 18 96/65 Mechanical Ventilator 50 07/23/20 19:30 98.9 95 25 98/66 (77) 100 07/23/20 19:15 93 23 60 07/23/20 19:00 96 27 95/65 (75) 100 07/23/20 19:00 18 99/62 Mechanical Ventilator 60 07/23/20 19:00 18 99/65 Mechanical Ventilator 60 07/23/20 18:30 96 27 94/64 (74) 100 07/23/20 18:15 96 27 97/68 (78) 100 07/23/20 18:00 27 97/68 Mechanical Ventilator 60 07/23/20 18:00 27 97/68 Mechanical Ventilator 60 07/23/20 18:00 97/68 07/23/20 18:00 99 22 97/68 (78) 100 07/23/20 18:00 95 25 97/68 (78) 100 07/23/20 17:45 96 27 103/67 (79) 100 07/23/20 17:30 97 27 97/69 (78) 100 07/23/20 17:00 27 97/69 Mechanical Ventilator 60 07/23/20 17:00 27 97/69 Mechanical Ventilator 60 07/23/20 17:00 97/69 07/23/20 17:00 98 26 85/72 (76) 99 07/23/20 16:15 103 29 98/69 (79) 99 07/23/20 16:00 100 07/23/20 16:00 60 07/23/20 16:00 99.1 102 28 98/69 (79) 99 07/23/20 16:00 31 98/69 Mechanical Ventilator 60 07/23/20 16:00 31 98/69 Mechanical Ventilator 60 07/23/20 16:00 98/69 07/23/20 16:00 Mechanical Ventilator Mechanical Ventilator Mechanical Ventilator 07/23/20 15:45 106 35 113/75 (88) 97 07/23/20 15:30 101 30 103/61 (75) 98 07/23/20 15:20 63 25 60 07/23/20 15:15 98 17 104/66 (79) 98 07/23/20 15:00 100 32 103/61 (75) 100 07/23/20 15:00 28 103/61 Mechanical Ventilator 60 07/23/20 15:00 38 101/62 Mechanical Ventilator 60 07/23/20 15:00 103/61 07/23/20 14:00 97 31 91/64 (73) 99 07/23/20 14:00 30 91/64 Mechanical Ventilator 60 07/23/20 14:00 31 91/64 Mechanical Ventilator 60 07/23/20 14:00 91/64 07/23/20 13:45 97 31 100/58 (72) 99 07/23/20 13:30 97 30 93/63 (73) 100 07/23/20 13:15 96 28 93/63 (73) 99 07/23/20 13:00 29 93/60 Mechanical Ventilator 60 07/23/20 13:00 29 93/60 Endotracheal Tube 60 07/23/20 13:00 93/60 07/23/20 13:00 97 15 93/60 (71) 99 07/23/20 13:00 100 07/23/20 12:45 97 18 95/60 (72) 100 07/23/20 12:30 98 23 99/57 (71) 99 07/23/20 12:15 98 35 93/58 (70) 99 07/23/20 12:00 Mechanical Ventilator Mechanical Ventilator Mechanical Ventilator 07/23/20 12:00 96 07/23/20 12:00 95 26 93/60 (71) 100 07/23/20 12:00 31 93/58 Mechanical Ventilator 60 07/23/20 12:00 28 93/58 Mechanical Ventilator 60 07/23/20 12:00 93/58 07/23/20 12:00 60 07/23/20 12:00 99.2 102 23 101/60 (74) 95 07/23/20 11:45 97 33 92/61 (71) 100 07/23/20 11:30 97 24 93/57 (69) 99 07/23/20 11:15 97 31 100/58 (72) 99 07/23/20 11:00 26 91/60 Mechanical Ventilator 60 07/23/20 11:00 29 91/60 Mechanical Ventilator 60 07/23/20 11:00 91/60 07/23/20 11:00 96 24 91/60 (70) 100 07/23/20 10:59 98 27 60 07/23/20 10:45 102 29 96/63 (74) 98 07/23/20 10:30 104 25 97/67 (77) 96 07/23/20 10:15 96 24 88/56 (67) 98 07/23/20 10:00 29 88/53 Mechanical Ventilator 60 07/23/20 10:00 27 88/53 Mechanical Ventilator 60 07/23/20 10:00 88/53 07/23/20 10:00 97 27 88/53 (65) 97 Intake and Output 07/23/20 07/24/20 19:00 07:00 Intake Total 1449.045 ml 1268 ml Output Total 532 ml 470 ml Balance 917.045 ml 798 ml Free Water 30 ml IV Total 1419.045 ml 1268 ml Output Urine Total 495 ml 340 ml Chest Tube Drainage Total 37 ml 130 ml Laboratory Tests 07/23/20 10:35: Arterial Blood pH 7.368, Arterial Blood Partial Pressure CO2 59.2*H, Arterial Blood Partial Pressure O2 71.6L, Arterial Blood HCO3 33.3H, Arterial Blood Ox ygen Saturation 92.8L, Arterial Blood Base Excess 7.0H, Jeremiah Test Positive 07/24/20 04:00: White Blood Count 11.1H, Red Blood Count 2.49L, Hemoglobin 7.1L, Hematocrit 22.8L, Mean Corpuscular Volume 91, Mean Corpuscular Hemoglobin 28.4, Mean Corpuscular Hemoglobin Concent 31.2L, Red Cell Distribution Width 16.7H, Platelet Count 248, Mean Platelet Volume 7.4, Neutrophils (%) (Auto) , Lymphocytes (%) (Auto) , Monocytes (%) (Auto) , Eosinophils (%) (Auto) , Basophils (%) (Auto) , Prothrombin Time 12.4H, Prothromb Time International Ratio 1.1, Activated Partial Thromboplast Time 34H, Sodium Level 138, Potassium Level 4.0, Chloride Level 100, Carbon Dioxide Level 34H, Anion Gap 4L, Blood Urea Nitrogen 16, Creatinine 0.6, Estimat Glomerular Filtration Rate > 60, Glucose Level 96, Calcium Level 9.4, Phosphorus Level 2.3L, Magnesium Level 1.6L , Total Bilirubin 0.2, Aspartate Amino Transf (AST/SGOT) 39H, Alanine Aminotransferase (ALT/SGPT) 27, Alkaline Phosphatase 56, C-Reactive Protein, Quantitative 8.2H, Pro-B-Type Natriuretic Peptide 583H, Total Protein 6.3L, Albumin 2.3L, Globulin 4.0, Albumin/Globulin Ratio 0.6L Height (Feet): 5 Height (Inches): 5.00 Weight (Pounds): 223 General Appearance: lethargic EENT: normal ENT inspection Neck: normal alignment Cardiovascular: normal peripheral pulses, normal rate, regular rhythm Respiratory/Chest: chest wall non-tender, lungs clear, normal breath sounds Abdomen: normal bowel sounds, non tender, soft Extremities: normal inspection Edema: no edema noted Arm (L), no edema noted Arm (R), no edema noted Leg (L), no edema noted Leg (R), no edema noted Pedal (L), no edema noted Pedal (R), no edema noted Generalized Neurologic: motor weakness Skin: normal pigmentation, warm/dry Assessment/Plan Problem List: (1) Hypoxia ICD Codes: R09.02 - Hypoxemia SNOMED: 216685701 (2) Respiratory failure ICD Codes: J96.90 - Respiratory failure, unspecified, unspecified whether with hypoxia or hypercapnia SNOMED: 009978925 (3) Respiratory distress ICD Codes: R06.03 - Acute respiratory distress; J12.82 - Pneumonia due to coronavirus disease 2019 SNOMED: 673622223 (4) Pneumonia due to COVID-19 virus ICD Codes: U07.1 - COVID-19; J12.82 - Pneumonia due to coronavirus disease 2019 SNOMED: 991812581346482716 Status: unchanged Assessment/Plan: vent abx id pulm f/u cbc bmp am Tank Del Cid DO Jul 24, 2020 09:55
[2020-07-24] MEDS ORDERED: Sodium Phosphate 15 MM in NS 275 ML IVPB ONE (10:00)
--- NOTE | 2020-07-24 10:17 | Pulmonology Progress Note ---
Subjective ROS Limited/Unobtainable: Yes - arge Interval Events: Events noted; required R CT after code. Also trach changed to 7 Constitutional: Reports: other - resolved HEENT: Repors: no symptoms Respiratory: Reports: no symptoms Cardiovascular: Reports: no symptoms Gastrointestinal/Abdominal: Reports: vomiting Genitourinary: Reports: no symptoms Allergies: Coded Allergies: No Known Allergies (Unverified , 05/28/20) All Systems: reviewed and negative except above Objective Last 24 Hour Vital Signs Date Time Temp Pulse Resp B/P (MAP) Pulse Ox O2 Delivery O2 Flow Rate FiO2 07/24/20 10:06 100.0 07/24/20 07:00 101 33 104/63 (77) 91 07/24/20 07:00 16 104/63 Mechanical Ventilator 40 07/24/20 07:00 18 104/63 Mechanical Ventilator 40 07/24/20 06:31 96 18 07/24/20 06:30 97 32 105/62 (76) 92 07/24/20 06:15 104 50 115/59 (77) 90 07/24/20 06:00 99 30 105/65 (78) 99 07/24/20 06:00 18 102/60 Mechanical Ventilator 40 07/24/20 06:00 18 102/60 Mechanical Ventilator 40 07/24/20 05:30 98 32 104/64 (77) 100 07/24/20 05:23 18 99/66 Mechanical Ventilator 50 07/24/20 05:00 98 27 108/64 (79) 100 07/24/20 05:00 18 104/64 Mechanical Ventilator 50 07/24/20 05:00 18 104/64 Mechanical Ventilator 50 07/24/20 04:30 98 27 96/60 (72) 100 07/24/20 04:00 97 07/24/20 04:00 99.4 97 27 101/61 (74) 100 07/24/20 04:00 Mechanical Ventilator Mechanical Ventilator Mechanical Ventilator 07/24/20 04:00 18 96/60 Mechanical Ventilator 50 07/24/20 04:00 18 96/60 Mechanical Ventilator 50 07/24/20 04:00 50 07/24/20 03:40 98 33 50 07/24/20 03:30 103 36 112/74 (87) 98 07/24/20 03:00 18 105/63 Mechanical Ventilator 50 07/24/20 03:00 18 105/63 Mechanical Ventilator 50 07/24/20 03:00 95 31 96/61 (73) 99 07/24/20 02:30 100 32 108/67 (81) 96 07/24/20 02:00 96 30 102/60 (74) 96 07/24/20 02:00 18 102/60 Mechanical Ventilator 50 07/24/20 02:00 18 102/60 Mechanical Ventilator 50 07/24/20 01:30 95 26 98/58 (71) 99 07/24/20 01:00 96 25 100/59 (73) 100 07/24/20 01:00 18 99/58 Mechanical Ventilator 55 07/24/20 01:00 18 95/58 Mechanical Ventilator 50 07/24/20 00:30 98 27 95/58 (70) 100 07/24/20 00:00 55 07/24/20 00:00 Mechanical Ventilator Mechanical Ventilator Mechanical Ventilator 07/24/20 00:00 99.1 98 28 103/61 (75) 100 07/24/20 00:00 18 100/58 Mechanical Ventilator 55 07/24/20 00:00 18 100/58 Mechanical Ventilator 55 07/24/20 00:00 96 07/23/20 23:30 107 37 113/72 (86) 100 07/23/20 23:24 90 22 55 07/23/20 23:04 18 93/60 Mechanical Ventilator 55 07/23/20 23:00 18 93/60 Mechanical Ventilator 55 07/23/20 23:00 18 93/60 Mechanical Ventilator 55 07/23/20 23:00 94 27 93/60 (71) 94 07/23/20 22:30 94 27 86/54 (65) 93 07/23/20 22:00 99.2 90 28 95/66 (76) 95 07/23/20 22:00 18 95/59 Mechanical Ventilator 50 07/23/20 22:00 18 95/57 Mechanical Ventilator 50 07/23/20 21:30 98 27 98/63 (75) 98 07/23/20 21:00 18 103/67 Mechanical Ventilator 50 07/23/20 21:00 18 103/67 Mechanical Ventilator 50 07/23/20 21:00 96 24 100/60 (73) 99 07/23/20 20:30 100 27 99/70 (80) 99 07/23/20 20:00 Mechanical Ventilator Mechanical Ventilator Mechanical Ventilator 07/23/20 20:00 92 07/23/20 20:00 50 07/23/20 20:00 95 27 97/65 (76) 100 07/23/20 20:00 18 96/65 Mechanical Ventilator 50 07/23/20 20:00 18 96/65 Mechanical Ventilator 50 07/23/20 19:30 98.9 95 25 98/66 (77) 100 07/23/20 19:15 93 23 60 07/23/20 19:00 96 27 95/65 (75) 100 07/23/20 19:00 18 99/62 Mechanical Ventilator 60 07/23/20 19:00 18 99/65 Mechanical Ventilator 60 07/23/20 18:30 96 27 94/64 (74) 100 07/23/20 18:15 96 27 97/68 (78) 100 07/23/20 18:00 27 97/68 Mechanical Ventilator 60 07/23/20 18:00 27 97/68 Mechanical Ventilator 60 07/23/20 18:00 97/68 07/23/20 18:00 99 22 97/68 (78) 100 07/23/20 18:00 95 25 97/68 (78) 100 07/23/20 17:45 96 27 103/67 (79) 100 07/23/20 17:30 97 27 97/69 (78) 100 07/23/20 17:00 27 97/69 Mechanical Ventilator 60 07/23/20 17:00 27 97/69 Mechanical Ventilator 60 07/23/20 17:00 97/69 07/23/20 17:00 98 26 85/72 (76) 99 07/23/20 16:15 103 29 98/69 (79) 99 07/23/20 16:00 100 07/23/20 16:00 60 07/23/20 16:00 99.1 102 28 98/69 (79) 99 07/23/20 16:00 31 98/69 Mechanical Ventilator 60 07/23/20 16:00 31 98/69 Mechanical Ventilator 60 07/23/20 16:00 98/69 07/23/20 16:00 Mechanical Ventilator Mechanical Ventilator Mechanical Ventilator 07/23/20 15:45 106 35 113/75 (88) 97 07/23/20 15:30 101 30 103/61 (75) 98 3/2/21 15:20 63 25 60 07/23/20 15:15 98 17 104/66 (79) 98 07/23/20 15:00 100 32 103/61 (75) 100 07/23/20 15:00 28 103/61 Mechanical Ventilator 60 07/23/20 15:00 38 101/62 Mechanical Ventilator 60 07/23/20 15:00 103/61 07/23/20 14:00 97 31 91/64 (73) 99 07/23/20 14:00 30 91/64 Mechanical Ventilator 60 07/23/20 14:00 31 91/64 Mechanical Ventilator 60 07/23/20 14:00 91/64 07/23/20 13:45 97 31 100/58 (72) 99 07/23/20 13:30 97 30 93/63 (73) 100 07/23/20 13:15 96 28 93/63 (73) 99 07/23/20 13:00 29 93/60 Mechanical Ventilator 60 07/23/20 13:00 29 93/60 Endotracheal Tube 60 07/23/20 13:00 93/60 07/23/20 13:00 97 15 93/60 (71) 99 07/23/20 13:00 100 07/23/20 12:45 97 18 95/60 (72) 100 07/23/20 12:30 98 23 99/57 (71) 99 07/23/20 12:15 98 35 93/58 (70) 99 07/23/20 12:00 Mechanical Ventilator Mechanical Ventilator Mechanical Ventilator 07/23/20 12:00 96 07/23/20 12:00 95 26 93/60 (71) 100 07/23/20 12:00 31 93/58 Mechanical Ventilator 60 07/23/20 12:00 28 93/58 Mechanical Ventilator 60 07/23/20 12:00 93/58 07/23/20 12:00 60 07/23/20 12:00 99.2 102 23 101/60 (74) 95 07/23/20 11:45 97 33 92/61 (71) 100 07/23/20 11:30 97 24 93/57 (69) 99 07/23/20 11:15 97 31 100/58 (72) 99 07/23/20 11:00 26 91/60 Mechanical Ventilator 60 07/23/20 11:00 29 91/60 Mechanical Ventilator 60 07/23/20 11:00 91/60 07/23/20 11:00 96 24 91/60 (70) 100 07/23/20 10:59 98 27 60 07/23/20 10:45 102 29 96/63 (74) 98 07/23/20 10:30 104 25 97/67 (77) 96 Intake and Output 07/23/20 07/24/20 19:00 07:00 Intake Total 1449.045 ml 1268 ml Output Total 532 ml 470 ml Balance 917.045 ml 798 ml Free Water 30 ml IV Total 1419.045 ml 1268 ml Output Urine Total 495 ml 340 ml Chest Tube Drainage Total 37 ml 130 ml General Appearance: no acute distress HEENT: normocephalic, status post trach Respiratory: chest wall non-tender Cardiovascular: normal peripheral pulses Abdomen: normal bowel sounds Laboratory Tests 07/23/20 10:35: Arterial Blood pH 7.368, Arterial Blood Partial Pressure CO2 59.2*H, Arterial Blood Partial Pressure O2 71.6L, Arterial Blood HCO3 33.3H, Arterial Blood Oxygen Saturation 92.8L, Arterial Blood Base Excess 7.0H, Jeremiah Test Positive 07/24/20 04:00: White Blood Count 11.1H, Red Blood Count 2.49L, Hemoglobin 7.1L, Hematocrit 22.8L, Mean Corpuscular Volume 91, Mean Corpuscular Hemoglobin 28.4, Mean Corpuscular Hemoglobin Concent 31.2L, Red Cell Distribution Width 16.7H, Platelet Count 248, Mean Platelet Volume 7.4, Neutrophils (%) (Auto) , Lymphocytes (%) (Auto) , Monocytes (%) (Auto) , Eosinophils (%) (Auto) , Basophils (%) (Auto) , Prothrombin Time 12.4H, Prothromb Time International Ratio 1.1, Activated Partial Thromboplast Time 34H, Sodium Level 138, Potassium Level 4.0, Chloride Level 100, Carbon Dioxide Level 34H, Anion Gap 4L, Blood Urea Nitrogen 16, Creatinine 0.6, Estimat Glomerular Filtration Rate > 60, Glucose Level 96, Calcium Level 9.4, Phosphorus Level 2.3L, Magnesium Level 1.6L , Total Bilirubin 0.2, Aspartate Amino Transf (AST/SGOT) 39H, Alanine Aminotransferase (ALT/SGPT) 27, Alkaline Phosphatase 56, C-Reactive Protein, Quantitative 8.2H, Pro-B-Type Natriuretic Peptide 583H, Total Protein 6.3L, Albumin 2.3L, Globulin 4.0, Albumin/Globulin Ratio 0.6L Current Medications Medications (Trade) Dose Ordered Sig/Zelda Route PRN Reason Start Time Stop Time Status Last Admin Dose Admin Acetaminophen (Tylenol) 650 mg Q4H PRN NG Temp >100.5 06/29/20 10:15 07/29/20 10:14 07/24/20 09:04 Acetaminophen (Tylenol) 650 mg Q6H PRN NG Mild Pain (Pain Scale 1-3) 06/29/20 10:15 07/29/20 10:14 07/22/20 11:56 Calcitonin Willis (Miacalcin) 1 sprays DAILY NASAL 07/22/20 14:00 10/20/20 13:59 07/24/20 08:49 Chlorhexidine Gluconate (Inna-Hex 2%) 1 applic DAILY@2000 TOPIC 07/20/20 20:00 10/18/20 19:59 07/23/20 20:19 Dextrose (Dextrose 50%) 25 ml Q30M PRN IV Hypoglycemia 06/05/20 10:45 09/03/20 10:44 Dextrose (Dextrose 50%) 50 ml Q30M PRN IV Hypoglycemia 06/05/20 10:45 09/03/20 10:44 Dextrose/Sodium Chloride 1,000 ml @ 75 mls/hr [id number] IV 07/20/20 12:30 08/19/20 12:29 07/24/20 08:04 Enoxaparin Sodium (Lovenox) 110 mg EVERY 12 HOURS SUBQ 07/17/20 21:00 10/15/20 20:59 07/23/20 20:19 Fentanyl Citrate 250 ml @ 0 mls/hr Q24H PRN IV . 07/22/20 14:00 07/24/20 13:59 07/24/20 05:23 Guaifenesin/ Codeine Phosphate (Robitussin with codeine) 5 ml Q6H PRN NG For Cough 07/14/20 14:15 08/13/20 14:14 07/18/20 21:44 Lansoprazole (Prevacid) 30 mg DAILY GT 07/18/20 09:00 08/09/20 08:59 07/24/20 08:48 Magnesium Sulfate 100 ml @ 100 mls/hr Q1H IVPB 07/24/20 08:30 07/24/20 10:29 07/24/20 10:08 Meropenem 1 gm/ Sodium Chloride 55 ml @ 110 mls/hr Q8H IVPB 07/22/20 12:00 07/27/20 11:59 07/24/20 04:20 Midazolam HCl 200 ml @ 0 mls/hr Q24H PRN IV sedation 07/22/20 14:06 07/29/20 14:05 07/23/20 23:04 Midodrine (Pro-Amatine) 10 mg Q8HR GT 06/30/20 14:00 09/12/20 13:59 07/24/20 05:22 Norepinephrine Bitartrate 8 mg/ Dextrose 250 ml @ 0 mls/hr Q24H IV 07/22/20 13:00 07/25/20 12:59 07/23/20 04:08 Quetiapine Fumarate (SEROqueL) 50 mg Q12HR GT 07/16/20 13:30 08/30/20 13:29 07/24/20 08:48 Sodium Phosphate 15 mm/Sodium Chloride 280 ml @ 70.273 mls/ hr ONCE ONCE IVPB 07/24/20 10:00 07/24/20 13:59 07/24/20 10:08 Assessment/Plan Assessment/Plan 1. COVID-19 pneumonia -Intubated 05/28/20 - We will continue broad-spectrum antibiotics. -s/p solumedrol, Rocephin -Continue PEEP 6 ->7 ->5 - Peak airway pressures better - FiO2 100% -> 90 ->80->60 ->40 ->80 ->100 ->70 ->60 -> 50 ->45 ->40 ->50 ->40%; PEEP 7 ->5 -will continue OGT feeding 2. Hyponatremia -Per primary MD 3. Elevated inflammatory markers - has high D dimer; On Lovenox 4. DVT of the right calf - once stable, consider IVC filter per heme vs oral DOAC 5. Decreased PEEP S/p trach Reported cuff leak per RN/RT Changed 07/22/20 however still has cuff leak On low dose Levophed; will attempt to wean off Will wean off IV sedation; started Seroquel Needs PEG; scheduled for today Required R CT due to PTX 07/22/20 Javier Nava MD Jul 24, 2020 10:17
[2020-07-24] MEDS ORDERED: D5W 275ml ONE (10:29)
[2020-07-24] MEDS ORDERED: Sterile Water Irrig 1000ml IRRIG ONE (10:29)
[2020-07-24] MEDS ORDERED: D5 1/2NS 1000ml IV ONE (10:29)
--- NOTE | 2020-07-24 10:34 | NUR ---
RESPIRATORY NOTE: FiO2 was increased from 40 % to 45 % due to saturation falling to 86%. Amy ELLINGTON aware.
--- NOTE | 2020-07-24 10:36 | Infectious Diseases Prog Note ---
Assessment/Plan Assessment/Plan antibiotics : meropenem A 1. covid 19 pneumonia s/p remdesivir s/p solumedrol 2. respiratory failure s/p tracheostomy 3. serratia pneumonia s/p rx 4. leucocytosis improving 5. enterobacter UTI 6. SBO 7, pneumothorax s/p CT placement 8. fever P 1. continue meropenem 2. will follow up cultures Subjective ROS Limited/Unobtainable: Yes Allergies: Coded Allergies: No Known Allergies (Unverified , 05/28/20) Objective Last 24 Hour Vital Signs Date Time Temp Pulse Resp B/P (MAP) Pulse Ox O2 Delivery O2 Flow Rate FiO2 07/24/20 10:06 100.0 07/24/20 07:00 101 33 104/63 (77) 91 07/24/20 07:00 16 104/63 Mechanical Ventilator 40 07/24/20 07:00 18 104/63 Mechanical Ventilator 40 07/24/20 06:31 96 18 07/24/20 06:30 97 32 105/62 (76) 92 07/24/20 06:15 104 50 115/59 (77) 90 07/24/20 06:00 99 30 105/65 (78) 99 07/24/20 06:00 18 102/60 Mechanical Ventilator 40 07/24/20 06:00 18 102/60 Mechanical Ventilator 40 07/24/20 05:30 98 32 104/64 (77) 100 07/24/20 05:23 18 99/66 Mechanical Ventilator 50 07/24/20 05:00 98 27 108/64 (79) 100 07/24/20 05:00 18 104/64 Mechanical Ventilator 50 07/24/20 05:00 18 104/64 Mechanical Ventilator 50 07/24/20 04:30 98 27 96/60 (72) 100 07/24/20 04:00 97 07/24/20 04:00 99.4 97 27 101/61 (74) 100 07/24/20 04:00 Mechanical Ventilator Mechanical Ventilator Mechanical Ventilator 07/24/20 04:00 18 96/60 Mechanical Ventilator 50 07/24/20 04:00 18 96/60 Mechanical Ventilator 50 07/24/20 04:00 50 07/24/20 03:40 98 33 50 07/24/20 03:30 103 36 112/74 (87) 98 3/3/21 03:00 18 105/63 Mechanical Ventilator 50 07/24/20 03:00 18 105/63 Mechanical Ventilator 50 07/24/20 03:00 95 31 96/61 (73) 99 07/24/20 02:30 100 32 108/67 (81) 96 07/24/20 02:00 96 30 102/60 (74) 96 07/24/20 02:00 18 102/60 Mechanical Ventilator 50 07/24/20 02:00 18 102/60 Mechanical Ventilator 50 07/24/20 01:30 95 26 98/58 (71) 99 07/24/20 01:00 96 25 100/59 (73) 100 07/24/20 01:00 18 99/58 Mechanical Ventilator 55 07/24/20 01:00 18 95/58 Mechanical Ventilator 50 07/24/20 00:30 98 27 95/58 (70) 100 07/24/20 00:00 55 07/24/20 00:00 Mechanical Ventilator Mechanical Ventilator Mechanical Ventilator 07/24/20 00:00 99.1 98 28 103/61 (75) 100 07/24/20 00:00 18 100/58 Mechanical Ventilator 55 07/24/20 00:00 18 100/58 Mechanical Ventilator 55 07/24/20 00:00 96 07/23/20 23:30 107 37 113/72 (86) 100 07/23/20 23:24 90 22 55 07/23/20 23:04 18 93/60 Mechanical Ventilator 55 07/23/20 23:00 18 93/60 Mechanical Ventilator 55 07/23/20 23:00 18 93/60 Mechanical Ventilator 55 07/23/20 23:00 94 27 93/60 (71) 94 07/23/20 22:30 94 27 86/54 (65) 93 07/23/20 22:00 99.2 90 28 95/66 (76) 95 07/23/20 22:00 18 95/59 Mechanical Ventilator 50 07/23/20 22:00 18 95/57 Mechanical Ventilator 50 07/23/20 21:30 98 27 98/63 (75) 98 07/23/20 21:00 18 103/67 Mechanical Ventilator 50 07/23/20 21:00 18 103/67 Mechanical Ventilator 50 07/23/20 21:00 96 24 100/60 (73) 99 07/23/20 20:30 100 27 99/70 (80) 99 07/23/20 20:00 Mechanical Ventilator Mechanical Ventilator Mechanical Ventilator 07/23/20 20:00 92 07/23/20 20:00 50 07/23/20 20:00 95 27 97/65 (76) 100 07/23/20 20:00 18 96/65 Mechanical Ventilator 50 07/23/20 20:00 18 96/65 Mechanical Ventilator 50 07/23/20 19:30 98.9 95 25 98/66 (77) 100 07/23/20 19:15 93 23 60 07/23/20 19:00 96 27 95/65 (75) 100 07/23/20 19:00 18 99/62 Mechanical Ventilator 60 07/23/20 19:00 18 99/65 Mechanical Ventilator 60 07/23/20 18:30 96 27 94/64 (74) 100 07/23/20 18:15 96 27 97/68 (78) 100 07/23/20 18:00 27 97/68 Mechanical Ventilator 60 07/23/20 18:00 27 97/68 Mechanical Ventilator 60 07/23/20 18:00 97/68 07/23/20 18:00 99 22 97/68 (78) 100 07/23/20 18:00 95 25 97/68 (78) 100 07/23/20 17:45 96 27 103/67 (79) 100 07/23/20 17:30 97 27 97/69 (78) 100 07/23/20 17:00 27 97/69 Mechanical Ventilator 60 07/23/20 17:00 27 97/69 Mechanical Ventilator 60 07/23/20 17:00 97/69 07/23/20 17:00 98 26 85/72 (76) 99 07/23/20 16:15 103 29 98/69 (79) 99 07/23/20 16:00 100 07/23/20 16:00 60 07/23/20 16:00 99.1 102 28 98/69 (79) 99 07/23/20 16:00 31 98/69 Mechanical Ventilator 60 07/23/20 16:00 31 98/69 Mechanical Ventilator 60 07/23/20 16:00 98/69 07/23/20 16:00 Mechanical Ventilator Mechanical Ventilator Mechanical Ventilator 07/23/20 15:45 106 35 113/75 (88) 97 07/23/20 15:30 101 30 103/61 (75) 98 07/23/20 15:20 63 25 60 07/23/20 15:15 98 17 104/66 (79) 98 07/23/20 15:00 100 32 103/61 (75) 100 07/23/20 15:00 28 103/61 Mechanical Ventilator 60 07/23/20 15:00 38 101/62 Mechanical Ventilator 60 07/23/20 15:00 103/61 07/23/20 14:00 97 31 91/64 (73) 99 07/23/20 14:00 30 91/64 Mechanical Ventilator 60 07/23/20 14:00 31 91/64 Mechanical Ventilator 60 07/23/20 14:00 91/64 07/23/20 13:45 97 31 100/58 (72) 99 07/23/20 13:30 97 30 93/63 (73) 100 07/23/20 13:15 96 28 93/63 (73) 99 07/23/20 13:00 29 93/60 Mechanical Ventilator 60 07/23/20 13:00 29 93/60 Endotracheal Tube 60 07/23/20 13:00 93/60 07/23/20 13:00 97 15 93/60 (71) 99 07/23/20 13:00 100 07/23/20 12:45 97 18 95/60 (72) 100 07/23/20 12:30 98 23 99/57 (71) 99 07/23/20 12:15 98 35 93/58 (70) 99 07/23/20 12:00 Mechanical Ventilator Mechanical Ventilator Mechanical Ventilator 07/23/20 12:00 96 07/23/20 12:00 95 26 93/60 (71) 100 07/23/20 12:00 31 93/58 Mechanical Ventilator 60 07/23/20 12:00 28 93/58 Mechanical Ventilator 60 07/23/20 12:00 93/58 07/23/20 12:00 60 07/23/20 12:00 99.2 102 23 101/60 (74) 95 07/23/20 11:45 97 33 92/61 (71) 100 07/23/20 11:30 97 24 93/57 (69) 99 07/23/20 11:15 97 31 100/58 (72) 99 07/23/20 11:00 26 91/60 Mechanical Ventilator 60 07/23/20 11:00 29 91/60 Mechanical Ventilator 60 07/23/20 11:00 91/60 07/23/20 11:00 96 24 91/60 (70) 100 07/23/20 10:59 98 27 60 07/23/20 10:45 102 29 96/63 (74) 98 Height (Feet): 5 Height (Inches): 5.00 Weight (Pounds): 223 HEENT: status post trach Respiratory/Chest: lungs clear, other - right CT Cardiovascular: normal rate, regular rhythm, no gallop/murmur Abdomen: soft, non tender Extremities: other - + edema, right groin catheter Laboratory Tests Test 07/23/20 10:35 07/24/20 04:00 Arterial Blood pH 7.368 (7.350-7.450) Arterial Blood Partial Pressure CO2 59.2 mmHg (35.0-45.0) *H Arterial Blood Partial Pressure O2 71.6 mmHg (75.0-100.0) L Arterial Blood HCO3 33.3 mmol/L (22.0-26.0) H Arterial Blood Oxygen Saturation 92.8 % (95-100) L Arterial Blood Base Excess 7.0 (-2-2) H Jeremiah Test Positive White Blood Count 11.1 K/UL (4.8-10.8) H Red Blood Count 2.49 M/UL (4.20-5.40) L Hemoglobin 7.1 G/DL (12.0-16.0) L Hematocrit 22.8 % (37.0-47.0) L Mean Corpuscular Volume 91 FL (80-99) Mean Corpuscular Hemoglobin 28.4 PG (27.0-31.0) Mean Corpuscular Hemoglobin Concent 31.2 G/DL (32.0-36.0) L Red Cell Distribution Width 16.7 % (11.6-14.8) H Platelet Count 248 K/UL (150-450) Mean Platelet Volume 7.4 FL (6.5-10.1) Neutrophils (%) (Auto) % (45.0-75.0) Lymphocytes (%) (Auto) % (20.0-45.0) Monocytes (%) (Auto) % (1.0-10.0) Eosinophils (%) (Auto) % (0.0-3.0) Basophils (%) (Auto) % (0.0-2.0) Prothrombin Time 12.4 SEC (9.30-11.50) H Prothromb Time International Ratio 1.1 (0.9-1.1) Activated Partial Thromboplast Time 34 SEC (23-33) H Sodium Level 138 MMOL/L (136-145) Potassium Level 4.0 MMOL/L (3.5-5.1) Chloride Level 100 MMOL/L (98-107) Carbon Dioxide Level 34 MMOL/L (21-32) H Anion Gap 4 mmol/L (5-15) L Blood Urea Nitrogen 16 mg/dL (7-18) Creatinine 0.6 MG/DL (0.55-1.30) Estimat Glomerular Filtration Rate > 60 mL/min (>60) Glucose Level 96 MG/DL (74-106) Calcium Level 9.4 MG/DL (8.5-10.1) Phosphorus Level 2.3 MG/DL (2.5-4.9) L Magnesium Level 1.6 MG/DL (1.8-2.4) L Total Bilirubin 0.2 MG/DL (0.2-1.0) Aspartate Amino Transf (AST/SGOT) 39 U/L (15-37) H Alanine Aminotransferase (ALT/SGPT) 27 U/L (12-78) Alkaline Phosphatase 56 U/L (46-116) C-Reactive Protein, Quantitative 8.2 mg/dL (0.00-0.90) H Pro-B-Type Natriuretic Peptide 583 pg/mL (0-125) H Total Protein 6.3 G/DL (6.4-8.2) L Albumin 2.3 G/DL (3.4-5.0) L Globulin 4.0 g/dL Albumin/Globulin Ratio 0.6 (1.0-2.7) L Current Medications Medications (Trade) Dose Ordered Sig/Zelda Route PRN Reason Start Time Stop Time Status Last Admin Dose Admin Acetaminophen (Tylenol) 650 mg Q4H PRN NG Temp >100.5 06/29/20 10:15 07/29/20 10:14 07/24/20 09:04 Acetaminophen (Tylenol) 650 mg Q6H PRN NG Mild Pain (Pain Scale 1-3) 06/29/20 10:15 07/29/20 10:14 07/22/20 11:56 Calcitonin [place] (Miacalcin) 1 sprays DAILY NASAL 07/22/20 14:00 10/20/20 13:59 07/24/20 08:49 Chlorhexidine Gluconate (Inna-Hex 2%) 1 applic DAILY@2000 TOPIC 07/20/20 20:00 10/18/20 19:59 07/23/20 20:19 Dextrose (Dextrose 50%) 25 ml Q30M PRN IV Hypoglycemia 06/05/20 10:45 09/03/20 10:44 Dextrose (Dextrose 50%) 50 ml Q30M PRN IV Hypoglycemia 06/05/20 10:45 09/03/20 10:44 Dextrose/Sodium Chloride 1,000 ml @ 75 mls/hr [id number] IV 07/20/20 12:30 08/19/20 12:29 07/24/20 08:04 Enoxaparin Sodium (Lovenox) 110 mg EVERY 12 HOURS SUBQ 07/17/20 21:00 10/15/20 20:59 07/23/20 20:19 Fentanyl Citrate 250 ml @ 0 mls/hr Q24H PRN IV . 07/22/20 14:00 07/24/20 13:59 07/24/20 05:23 Guaifenesin/ Codeine Phosphate (Robitussin with codeine) 5 ml Q6H PRN NG For Cough 07/14/20 14:15 08/13/20 14:14 07/18/20 21:44 Lansoprazole (Prevacid) 30 mg DAILY GT 07/18/20 09:00 08/09/20 08:59 07/24/20 08:48 Meropenem 1 gm/ Sodium Chloride 55 ml @ 110 mls/hr Q8H IVPB 07/22/20 12:00 07/27/20 11:59 07/24/20 04:20 Midazolam HCl 200 ml @ 0 mls/hr Q24H PRN IV sedation 07/22/20 14:06 07/29/20 14:05 07/23/20 23:04 Midodrine (Pro-Amatine) 10 mg Q8HR GT 06/30/20 14:00 09/12/20 13:59 07/24/20 05:22 Norepinephrine Bitartrate 8 mg/ Dextrose 250 ml @ 0 mls/hr Q24H IV 07/22/20 13:00 07/25/20 12:59 07/23/20 04:08 Quetiapine Fumarate (SEROqueL) 50 mg Q12HR GT 07/16/20 13:30 08/30/20 13:29 07/24/20 08:48 Sodium Phosphate 15 mm/Sodium Chloride 280 ml @ 70.273 mls/ hr ONCE ONCE IVPB 07/24/20 10:00 07/24/20 13:59 07/24/20 10:08 Fili Mcelroy MD Jul 24, 2020 10:36
--- NOTE | 2020-07-24 11:17 | Immediate Post-Op Evaluation ---
Immediate Post-Op Evalulation Immediate Post-Op Evalulation Procedure: EGD Date of Evaluation: Jul 24, 2020 Time of Evaluation: 12:07 IV Fluids: 100 NS Blood Products: 0 Estimated Blood Loss: 1 Urinary Output: 0 Blood Pressure Systolic: 112 Blood Pressure Diastolic: 71 Pulse Rate: 104 Respiratory Rate: 20 - Mech Vent O2 Sat by Pulse Oximetry: 87 Temperature (Fahrenheit): 98 Pain Score (1-10): 1 Nausea: No Vomiting: No Complications 0 Patient Status: awake, reacts, patent, none Hydration Status: adequate Silvino Malagon MD Jul 24, 2020 11:17
--- NOTE | 2020-07-24 11:17 | 48 Hour Post Anesthesia Eval ---
Post Anesthesia Evaluation Procedure: EGD Date of Evaluation: Jul 24, 2020 Time of Evaluation: 14:12 Blood Pressure Systolic: 116 0: 74 Pulse Rate: 107 Respiratory Rate: 20 - Mech Vent Temperature (Fahrenheit): 98 O2 Sat by Pulse Oximetry: 84 Airway: patent Nausea: No Vomiting: No Pain Intensity: 1 Hydration Status: adequate Cardiopulmonary Status: Stable, Intubated Mental Status/LOC: patient returned to baseline Follow-up Care/Observations: 0 Post-Anesthesia Complications: 0 Follow-up care needed: N/A Silvino Malagon MD Jul 24, 2020 11:17
[2020-07-24] MEDS ORDERED: NS 500ML IVPB ONE (11:30)
[2020-07-24] MEDS ORDERED: Lidocaine 1% MPF 10mg/ml 5ml ONE (11:30)
--- NOTE | 2020-07-24 11:56 | Endoscopy Procedure Note ---
Endoscopy Procedure Note General Indication for Procedure: dysphagia Procedures Performed: EGD, PEG Operative Findings/Diagnosis: same Specimen: none Pt Tolerated Procedure Well: Yes Estimated Blood Loss: none Anesthesia Anesthesiologist: young Anesthesia: MAC Inserted Devices Implant(s) used?: No GI Core Measures 50 yrs or older w/o bx or poly: Not Applicable 10yrs. F/U recommended: Not Applicable Ryan Strong MD Jul 24, 2020 11:56
[2020-07-24] MEDS ORDERED: Lidocaine 1% Plain 30 ml INJ PRN (12:30)
[2020-07-24] MEDS ORDERED: Heparin1,000 units/500ml Premix(Conc:2 units/ml) INJ PRN (12:30)
--- NOTE | 2020-07-24 13:17 | Nephrology Progress Note ---
Assessment/Plan Problem List: (1) DEVENDRA (acute kidney injury) (2) Morbid obesity (3) Diabetes mellitus out of control (4) Pneumonia due to COVID-19 virus (5) Respiratory failure Assessment Acute renal failure Obstructive uropathy, clogged [place] Respiratory failure COVID-19 pneumonia Morbid obesity Plan July 24: Patient seen in ICU. Status quo. Has trach. Being ventilated. Has right chest tube. Labs reviewed. Continue per consultants. Low magnesium and low phosphorus replaced. July 23: Patient seen in ICU. Discussed with RN. Yesterday the patient dev eloped tension pneumothorax. Patient has a chest tube today. Labs reviewed. Renal parameters stable. Medication list reviewed. July 22: Status quo. Labs reviewed. Serum calcium elevated. Vitamin D discontinued. Pamidronate 60 mg IV given. Continue to monitor calcium and phosphorus. Patient due for PEG today. July 21: Status quo. Awake responsive. Labs reviewed. Medication list reviewed. Stable from renal standpoint of view. Due for PEG tomorrow. Continue her current management. July 20: Status quo. PEG procedure deferred to July 22. Patient remains full code. Abnormal electrolytes addressed. FiO2 50% unchanged. Continue per consultants. July 19: Status quo. Due for PEG insertion today. Remains full code. Trach and vent. Low magnesium addressed. Continue per consultants. FiO2 50%. July 18: Status quo. Labs reviewed. Low potassium addressed. Continue per consultants. Remains full code. July 17: Remains full code. Trach to vent. FiO2 40%. Labs reviewed. Low potassium addressed. Continue per consultants. July 16: Status quo. FiO2 45%. Discussed with RN. Continue to taper her mind altering medications and sedatives. Stable from renal standpoint of view. Abnormal electrolytes addressed. July 15: Full code. FiO2 50%. Intubated on ventilator. No labs drawn today. Continue per consultants. July 14: Status quo. FiO2 50%. Labs reviewed. Renal parameters stable. Continue per current treatment plan and consultants. Medication list reviewed. July 13: FiO2 60% unchanged. Labs reviewed. Renal parameters stable. Medication list reviewed. Continue per consultants. July 12: Full code. Labs reviewed. Normal electrolytes addressed. Continue per pulmonary. Medication list reviewed. July 11: Remains full code. On ventilator. FiO2 down to 65%. Renal parameters stable. Low magnesium addressed. Continue her current management. July 10: Full code. On ventilator. FiO2 70%. Hemoglobin mid sevens. Renal parameters stable. Continue per consultants. July 09: Labs reviewed. Renal parameters stable. FiO2 80% unchanged. Continue per pulmonary. July 08: Labs reviewed. Renal parameters and electrolytes stable. ABG suggestive of high PCO2. At this time patient is on FiO2 of 80%. Continue per pulmonary. Continue to monitor renal parameters. July 07: No CHEM panel drawn today. More potassium given. Continue to monitor renal parameters. Continue per consultants. Discussed with RAKEL Veras. July 06: Low potassium addressed. Albumin bolus for low BP given. Patient remains full code. Continue to monitor electrolytes and renal parameters. Con tinue per consultants. Hemoglobin low today, transfusion per size roller operator. July 05: Trach to vent. FiO2 80%. Renal parameters stable. PCO2 remains high at 44. Continue to monitor renal parameters. July 04: Patient now trach. Full code. Labs reviewed. Renal parameters stable. Low magnesium addressed. July 03: Intubated. Full code. Labs reviewed. Abnormal electrolytes addressed. Continue per consultants. Overall status unchanged. July 02: Remains intubated. Remains full code. Remains on FiO2 of 70%. Labs reviewed. Abnormal electrolytes addressed. Continue per pulmonary. July 01: Remains on 70% FiO2. Full code. Intubated on ventilator. Retaining CO2. Discussed with RN. Will do ABG today. Albumin bolus given. 1 dose of Diamox given. June 30: Status quo. Labs reviewed. Abnormal electrolytes addressed. Remains full code. Remains on ventilator. Magnesium sulfate 4 gram IVPB given. June 29: Full code. Intubated on ventilator. Labs reviewed. Stable from renal standpoint of view. Continue per consultants. June 28: Remains full code. Remains intubated on ventilator. Labs reviewed. Vitamin D supplement ordered. Continue to monitor renal parameters. Continue per consultants. June 27: Remains full code. Intubated on ventilator. Labs reviewed. Abnormal electrolyte addressed. Continue to monitor renal parameters and electrolytes. Continue per consultants. June 26: Labs reviewed. Remains full code. Remains intubated. Back on NGT feeding. Continue to monitor renal parameters. June 25: Labs reviewed. Renal parameters stable. Remains full code. Due to positional status patient could not be fed via NG tube. Starting TPN? Is being entertained. Continue per consultants. June 24: Labs reviewed. Renal parameters stable. Remains full code. Remains intubated on ventilator. Continue per consultants. June 23: Labs reviewed. Renal parameters stable. Discussed with RN. Abnormal electrolyte addressed. Remains full code. Remains on ventilator. Continue per consultants. June 22: Labs reviewed. Low potassium addressed. Discussed with RAKEL Moran. Patient full code. Remains on ventilator. Continue to monitor renal parameters. June 21. Labs reviewed. Abnormal electrolyte addressed. Full code. Remains on ventilator. Medication list reviewed. Continue per pulmonary management. DC IV fluid, resume Lasix daily, check chest x-ray. June 20: Labs reviewed. Abnormal electrolytes. Patient remains full code. Continue per consultants. Noted and addressed June 19: Labs reviewed. Abnormal electrolytes noted and addressed. Remains intubated on ventilator. Remains full code. June 18: Labs reviewed. Remains intubated on ventilator. Full code. Abnormal electrolyte addressed. Continue as is. June 17: Labs reviewed. Abnormal electrolytes addressed. Patient remains full code and intubated on ventilator. Continue per consultants. Renal parameters are within normal limits. June 16: Labs reviewed. Potassium chloride replaced. Remains full code. Remains intubated on ventilator. Continue per consultants. Continue to monitor renal parameters. June 15: Labs reviewed. Serum creatinine 1. Stable from renal standpoint to view. Continue per consultants. June 14: Labs reviewed. Full code. Serum creatinine of 3.5 down to 1.4. Low potassium addressed. Continue per current treatment plan. Continue to monitor renal parameters. Midodrine started. Albumin bolus given. Previously: DC Lasix drip Increase Protonix dose Monitor renal parameters, electrolytes Per orders Subjective ROS Limited/Unobtainable: Yes Objective Objective Last 24 Hour Vital Signs Date Time Temp Pulse Resp B/P (MAP) Pulse Ox O2 Delivery O2 Flow Rate FiO2 07/24/20 13:00 98 14 141/87 (105) 100 07/24/20 12:45 96 18 133/93 (106) 99 07/24/20 12:30 108 31 121/80 (94) 97 07/24/20 12:15 97 31 115/73 (87) 99 07/24/20 12:07 104/69 07/24/20 12:00 98.9 105 40 116/71 (86) 87 07/24/20 12:00 45 07/24/20 11:54 107 20 84 07/24/20 11:53 104 20 87 07/24/20 11:45 105 29 105/76 (86) 96 07/24/20 11:40 98.9 100 35 112/73 (86) 95 07/24/20 11:30 101 37 105/78 (87) 97 07/24/20 11:25 99.0 102 35 110/70 (83) 96 07/24/20 11:15 101 7 110/70 (83) 97 07/24/20 11:00 99.0 105 33 111/64 (80) 96 07/24/20 10:45 103 30 101/62 (75) 95 07/24/20 10:30 106 30 97/65 (76) 90 07/24/20 10:15 106 34 106/68 (81) 88 07/24/20 10:06 100.0 07/24/20 10:00 107 31 98/59 (72) 88 07/24/20 09:45 106 32 95/57 (70) 90 07/24/20 09:30 100.0 110 36 98/54 (69) 91 07/24/20 09:15 108 33 102/54 (70) 92 07/24/20 09:00 101 32 107/65 (79) 93 07/24/20 08:45 103 34 106/67 (80) 94 07/24/20 08:30 101 34 99/61 (74) 97 07/24/20 08:15 103 35 103/64 (77) 95 07/24/20 08:00 40 07/24/20 08:00 100.6 100 27 99/64 (76) 96 07/24/20 07:45 105 36 116/79 (91) 95 07/24/20 07:30 109 42 121/77 (92) 84 07/24/20 07:15 99 34 106/67 (80) 91 07/24/20 07:00 101 33 104/63 (77) 91 07/24/20 07:00 16 104/63 Mechanical Ventilator 40 07/24/20 07:00 18 104/63 Mechanical Ventilator 40 07/24/20 06:31 96 18 07/24/20 06:30 97 32 105/62 (76) 92 07/24/20 06:15 104 50 115/59 (77) 90 07/24/20 06:00 99 30 105/65 (78) 99 07/24/20 06:00 18 102/60 Mechanical Ventilator 40 07/24/20 06:00 18 102/60 Mechanical Ventilator 40 07/24/20 05:30 98 32 104/64 (77) 100 07/24/20 05:23 18 99/66 Mechanical Ventilator 50 07/24/20 05:00 98 27 108/64 (79) 100 07/24/20 05:00 18 104/64 Mechanical Ventilator 50 07/24/20 05:00 18 104/64 Mechanical Ventilator 50 07/24/20 04:30 98 27 96/60 (72) 100 07/24/20 04:00 97 07/24/20 04:00 99.4 97 27 101/61 (74) 100 07/24/20 04:00 Mechanical Ventilator Mechanical Ventilator Mechanical Ventilator 07/24/20 04:00 18 96/60 Mechanical Ventilator 50 07/24/20 04:00 18 96/60 Mechanical Ventilator 50 07/24/20 04:00 50 07/24/20 03:40 98 33 50 07/24/20 03:30 103 36 112/74 (87) 98 07/24/20 03:00 18 105/63 Mechanical Ventilator 50 07/24/20 03:00 18 105/63 Mechanical Ventilator 50 07/24/20 03:00 95 31 96/61 (73) 99 07/24/20 02:30 100 32 108/67 (81) 96 07/24/20 02:00 96 30 102/60 (74) 96 07/24/20 02:00 18 102/60 Mechanical Ventilator 50 07/24/20 02:00 18 102/60 Mechanical Ventilator 50 07/24/20 01:30 95 26 98/58 (71) 99 07/24/20 01:00 96 25 100/59 (73) 100 07/24/20 01:00 18 99/58 Mechanical Ventilator 55 07/24/20 01:00 18 95/58 Mechanical Ventilator 50 07/24/20 00:30 98 27 95/58 (70) 100 07/24/20 00:00 55 07/24/20 00:00 Mechanical Ventilator Mechanical Ventilator Mechanical Ventilator 07/24/20 00:00 99.1 98 28 103/61 (75) 100 07/24/20 00:00 18 100/58 Mechanical Ventilator 55 07/24/20 00:00 18 100/58 Mechanical Ventilator 55 07/24/20 00:00 96 07/23/20 23:30 107 37 113/72 (86) 100 07/23/20 23:24 90 22 55 07/23/20 23:04 18 93/60 Mechanical Ventilator 55 07/23/20 23:00 18 93/60 Mechanical Ventilator 55 07/23/20 23:00 18 93/60 Mechanical Ventilator 55 07/23/20 23:00 94 27 93/60 (71) 94 07/23/20 22:30 94 27 86/54 (65) 93 07/23/20 22:00 99.2 90 28 95/66 (76) 95 07/23/20 22:00 18 95/59 Mechanical Ventilator 50 07/23/20 22:00 18 95/57 Mechanical Ventilator 50 07/23/20 21:30 98 27 98/63 (75) 98 07/23/20 21:00 18 103/67 Mechanical Ventilator 50 07/23/20 21:00 18 103/67 Mechanical Ventilator 50 07/23/20 21:00 96 24 100/60 (73) 99 07/23/20 20:30 100 27 99/70 (80) 99 07/23/20 20:00 Mechanical Ventilator Mechanical Ventilator Mechanical Ventilator 07/23/20 20:00 92 07/23/20 20:00 50 07/23/20 20:00 95 27 97/65 (76) 100 07/23/20 20:00 18 96/65 Mechanical Ventilator 50 07/23/20 20:00 18 96/65 Mechanical Ventilator 50 07/23/20 19:30 98.9 95 25 98/66 (77) 100 07/23/20 19:15 93 23 60 07/23/20 19:00 96 27 95/65 (75) 100 07/23/20 19:00 18 99/62 Mechanical Ventilator 60 07/23/20 19:00 18 99/65 Mechanical Ventilator 60 07/23/20 18:30 96 27 94/64 (74) 100 07/23/20 18:15 96 27 97/68 (78) 100 07/23/20 18:00 27 97/68 Mechanical Ventilator 60 07/23/20 18:00 27 97/68 Mechanical Ventilator 60 07/23/20 18:00 97/68 07/23/20 18:00 99 22 97/68 (78) 100 07/23/20 18:00 95 25 97/68 (78) 100 07/23/20 17:45 96 27 103/67 (79) 100 07/23/20 17:30 97 27 97/69 (78) 100 07/23/20 17:00 27 97/69 Mechanical Ventilator 60 07/23/20 17:00 27 97/69 Mechanical Ventilator 60 07/23/20 17:00 97/69 07/23/20 17:00 98 26 85/72 (76) 99 07/23/20 16:15 103 29 98/69 (79) 99 07/23/20 16:00 100 07/23/20 16:00 60 07/23/20 16:00 99.1 102 28 98/69 (79) 99 07/23/20 16:00 31 98/69 Mechanical Ventilator 60 07/23/20 16:00 31 98/69 Mechanical Ventilator 60 07/23/20 16:00 98/69 07/23/20 16:00 Mechanical Ventilator Mechanical Ventilator Mechanical Ventilator 07/23/20 15:45 106 35 113/75 (88) 97 07/23/20 15:30 101 30 103/61 (75) 98 07/23/20 15:20 63 25 60 07/23/20 15:15 98 17 104/66 (79) 98 07/23/20 15:00 100 32 103/61 (75) 100 07/23/20 15:00 28 103/61 Mechanical Ventilator 60 07/23/20 15:00 38 101/62 Mechanical Ventilator 60 07/23/20 15:00 103/61 07/23/20 14:00 97 31 91/64 (73) 99 07/23/20 14:00 30 91/64 Mechanical Ventilator 60 07/23/20 14:00 31 91/64 Mechanical Ventilator 60 07/23/20 14:00 91/64 07/23/20 13:45 97 31 100/58 (72) 99 07/23/20 13:30 97 30 93/63 (73) 100 Intake and Output 07/23/20 07/24/20 19:00 07:00 Intake Total 1449.045 ml 1268 ml Output Total 532 ml 470 ml Balance 917.045 ml 798 ml Free Water 30 ml IV Total 1419.045 ml 1268 ml Output Urine Total 495 ml 340 ml Chest Tube Drainage Total 37 ml 130 ml Current Medications Medications (Trade) Dose Ordered Sig/Zelda Route PRN Reason Start Time Stop Time Status Last Admin Dose Admin Acetaminophen (Tylenol) 650 mg Q4H PRN NG Temp >100.5 06/29/20 10:15 07/29/20 10:14 07/24/20 09:04 Acetaminophen (Tylenol) 650 mg Q6H PRN NG Mild Pain (Pain Scale 1-3) 06/29/20 10:15 07/29/20 10:14 07/22/20 11:56 Calcitonin Maurepas (Miacalcin) 1 sprays DAILY NASAL 07/22/20 14:00 10/20/20 13:59 07/24/20 08:49 Chlorhexidine Gluconate (Inna-Hex 2%) 1 applic DAILY@2000 TOPIC 07/20/20 20:00 10/18/20 19:59 07/23/20 20:19 Dextrose (Dextrose 50%) 25 ml Q30M PRN IV Hypoglycemia 06/05/20 10:45 09/03/20 10:44 Dextrose (Dextrose 50%) 50 ml Q30M PRN IV Hypoglycemia 06/05/20 10:45 09/03/20 10:44 Dextrose/Sodium Chloride 1,000 ml @ 75 mls/hr [id number] IV 07/20/20 12:30 08/19/20 12:29 07/24/20 08:04 Enoxaparin Sodium (Lovenox) 110 mg EVERY 12 HOURS SUBQ 07/17/20 21:00 10/15/20 20:59 07/23/20 20:19 Fentanyl Citrate 250 ml @ 0 mls/hr Q24H PRN IV . 07/22/20 14:00 07/24/20 13:59 07/24/20 05:23 Guaifenesin/ Codeine Phosphate (Robitussin with codeine) 5 ml Q6H PRN NG For Cough 07/14/20 14:15 08/13/20 14:14 07/18/20 21:44 Heparin Sodium/ Sodium Chloride (Heparin 1000 units/500ml Premix) 1,000 unit ONCE PRN INJ radiology use 07/24/20 12:30 07/26/20 12:29 Lansoprazole (Prevacid) 30 mg DAILY GT 07/18/20 09:00 08/09/20 08:59 07/24/20 08:48 Lidocaine HCl (Xylocaine 1% 30ml) 30 ml ONCE PRN INJ radiology use 07/24/20 12:30 07/26/20 12:29 Meropenem 1 gm/ Sodium Chloride 55 ml @ 110 mls/hr Q8H IVPB 07/22/20 12:00 07/27/20 11:59 07/24/20 12:08 Midazolam HCl 200 ml @ 0 mls/hr Q24H PRN IV sedation 07/22/20 14:06 07/29/20 14:05 07/23/20 23:04 Midodrine (Pro-Amatine) 10 mg Q8HR GT 06/30/20 14:00 09/12/20 13:59 07/24/20 05:22 Norepinephrine Bitartrate 8 mg/ Dextrose 250 ml @ 0 mls/hr Q24H IV 07/22/20 13:00 07/25/20 12:59 07/23/20 04:08 Quetiapine Fumarate (SEROqueL) 50 mg Q12HR GT 07/16/20 13:30 08/30/20 13:29 07/24/20 08:48 Sodium Phosphate 15 mm/Sodium Chloride 280 ml @ 70.273 mls/ hr ONCE ONCE IVPB 07/24/20 10:00 07/24/20 13:59 07/24/20 10:08 Laboratory Tests 07/24/20 04:00: White Blood Count 11.1H, Red Blood Count 2.49L, Hemoglobin 7.1L, Hematocrit 22.8L, Mean Corpuscular Volume 91, Mean Corpuscular Hemoglobin 28.4, Mean Corpuscular Hemoglobin Concent 31.2L, Red Cell Distribution Width 16.7H, Platelet Count 248, Mean Platelet Volume 7.4, Neutrophils (%) (Auto) , Lymphocytes (%) (Auto) , Monocytes (%) (Auto) , Eosinophils (%) (Auto) , Basoph ils (%) (Auto) , Prothrombin Time 12.4H, Prothromb Time International Ratio 1.1, Activated Partial Thromboplast Time 34H, Sodium Level 138, Potassium Level 4.0, Chloride Level 100, Carbon Dioxide Level 34H, Anion Gap 4L, Blood Urea Nitrogen 16, Creatinine 0.6, Estimat Glomerular Filtration Rate > 60, Glucose Level 96, Calcium Level 9.4, Phosphorus Level 2.3L, Magnesium Level 1.6L, Total Bilirubin 0.2, Aspartate Amino Transf (AST/SGOT) 39H, Alanine Aminotransferase (ALT/SGPT) 27, Alkaline Phosphatase 56, C-Reactive Protein, Quantitative 8.2H, Pro-B-Type Natriuretic Peptide 583H, Total Protein 6.3L, Albumin 2.3L, Globulin 4.0, Albumin/Globulin Ratio 0.6L Height (Feet): 5 Height (Inches): 5.00 Weight (Pounds): 223 General Appearance: no apparent distress EENT: other - Trach to vent Cardiovascular: tachycardia Respiratory/Chest: decreased breath sounds, other - Right chest tube Abdomen: distended Rigo Tyler MD Jul 24, 2020 13:17
--- NOTE | 2020-07-24 13:20 | Diagnostic Imaging Report ---
Indication: History pneumothorax, shortness of breath, intubated patient, pneumonia Technique: One view of the chest Comparison: 07/23/2020 Findings: Right chest tube, tracheostomy, nasogastric tube remain. Previously demonstrated subcutaneous emphysema has nearly completely cleared, with only questionably small residual in the left supraclavicular fossa. Extensive bilateral infiltrates persist. There is no pneumothorax currently. The heart is borderline enlarged. Pneumoperitoneum persists, may be slightly decreased Impression: Markedly improved subcutaneous emphysema Unchanged bilateral infiltrates Persistent but perhaps slightly decreased pneumoperitoneum
--- NOTE | 2020-07-24 13:35 | Cardiac Electrophysiology PN ---
Assessment/Plan Assessment/Plan 1. Respiratory failure due to COVID-19 pneumonia. On tracheostomy on 100 % Fio2. Trach exchanged 07/22/[address] Devine Echo EF 60% 2. S/P Code x2 with hypotension and sammy arrest on 07/22/20 likely due to Pneumothorax No further after chest tube. HR stable and on LEvo only 4 Mcg 3. Right Pneumothorax, S/P chest tube placement 4. Hypotension, on midodrine 10 mg 3 times daily and Levophed 4 mcg 5. Dysphagia. PEG postponed for possible SBO. NGT to suction. 6. Right lower extremity DVT. Follow up by Hematology. May need IVC filter placement. 7. Severe anemia, Getting PRBC DW RN and Dr Devine Subjective Subjective In ICU on the Vent on 45 % Fio2 and PEEP 5 in SR. Coded twice for hypotension and bradycardia while on the Vent about 20 minutes after tracheostomy was changed 07/22/20 Found to have Right Pneumothorax and underwent Right chest tube placement by Dr Devine Getting PRBC Objective Last 24 Hour Vital Signs Date Time Temp Pulse Resp B/P (MAP) Pulse Ox O2 Delivery O2 Flow Rate FiO2 07/24/20 13:00 98 14 141/87 (105) 100 07/24/20 12:45 96 18 133/93 (106) 99 07/24/20 12:30 108 31 121/80 (94) 97 07/24/20 12:15 97 31 115/73 (87) 99 07/24/20 12:07 104/69 07/24/20 12:00 98.9 105 40 116/71 (86) 87 07/24/20 12:00 45 07/24/20 11:54 107 20 84 07/24/20 11:53 104 20 87 07/24/20 11:45 105 29 105/76 (86) 96 07/24/20 11:40 98.9 100 35 112/73 (86) 95 07/24/20 11:30 101 37 105/78 (87) 97 07/24/20 11:25 99.0 102 35 110/70 (83) 96 07/24/20 11:15 101 7 110/70 (83) 97 07/24/20 11:00 99.0 105 33 111/64 (80) 96 07/24/20 10:45 103 30 101/62 (75) 95 07/24/20 10:30 106 30 97/65 (76) 90 07/24/20 10:15 106 34 106/68 (81) 88 07/24/20 10:06 100.0 07/24/20 10:00 107 31 98/59 (72) 88 07/24/20 09:45 106 32 95/57 (70) 90 07/24/20 09:30 100.0 110 36 98/54 (69) 91 07/24/20 09:15 108 33 102/54 (70) 92 07/24/20 09:00 101 32 107/65 (79) 93 07/24/20 08:45 103 34 106/67 (80) 94 07/24/20 08:30 101 34 99/61 (74) 97 07/24/20 08:15 103 35 103/64 (77) 95 07/24/20 08:00 Mechanical Ventilator Mechanical Ventilator Mechanical Ventilator 07/24/20 08:00 40 07/24/20 08:00 100.6 100 27 99/64 (76) 96 07/24/20 07:45 105 36 116/79 (91) 95 07/24/20 07:30 109 42 121/77 (92) 84 07/24/20 07:15 99 34 106/67 (80) 91 07/24/20 07:00 101 33 104/63 (77) 91 07/24/20 07:00 16 104/63 Mechanical Ventilator 40 07/24/20 07:00 18 104/63 Mechanical Ventilator 40 07/24/20 06:31 96 18 07/24/20 06:30 97 32 105/62 (76) 92 07/24/20 06:15 104 50 115/59 (77) 90 07/24/20 06:00 99 30 105/65 (78) 99 07/24/20 06:00 18 102/60 Mechanical Ventilator 40 07/24/20 06:00 18 102/60 Mechanical Ventilator 40 07/24/20 05:30 98 32 104/64 (77) 100 07/24/20 05:23 18 99/66 Mechanical Ventilator 50 07/24/20 05:00 98 27 108/64 (79) 100 07/24/20 05:00 18 104/64 Mechanical Ventilator 50 07/24/20 05:00 18 104/64 Mechanical Ventilator 50 07/24/20 04:30 98 27 96/60 (72) 100 07/24/20 04:00 97 07/24/20 04:00 99.4 97 27 101/61 (74) 100 07/24/20 04:00 Mechanical Ventilator Mechanical Ventilator Mechanical Ventilator 07/24/20 04:00 18 96/60 Mechanical Ventilator 50 07/24/20 04:00 18 96/60 Mechanical Ventilator 50 07/24/20 04:00 50 07/24/20 03:40 98 33 50 07/24/20 03:30 103 36 112/74 (87) 98 07/24/20 03:00 18 105/63 Mechanical Ventilator 50 07/24/20 03:00 18 105/63 Mechanical Ventilator 50 07/24/20 03:00 95 31 96/61 (73) 99 07/24/20 02:30 100 32 108/67 (81) 96 07/24/20 02:00 96 30 102/60 (74) 96 07/24/20 02:00 18 102/60 Mechanical Ventilator 50 07/24/20 02:00 18 102/60 Mechanical Ventilator 50 07/24/20 01:30 95 26 98/58 (71) 99 07/24/20 01:00 96 25 100/59 (73) 100 07/24/20 01:00 18 99/58 Mechanical Ventilator 55 07/24/20 01:00 18 95/58 Mechanical Ventilator 50 07/24/20 00:30 98 27 95/58 (70) 100 07/24/20 00:00 55 07/24/20 00:00 Mechanical Ventilator Mechanical Ventilator Mechanical Ventilator 07/24/20 00:00 99.1 98 28 103/61 (75) 100 07/24/20 00:00 18 100/58 Mechanical Ventilator 55 07/24/20 00:00 18 100/58 Mechanical Ventilator 55 07/24/20 00:00 96 07/23/20 23:30 107 37 113/72 (86) 100 07/23/20 23:24 90 22 55 07/23/20 23:04 18 93/60 Mechanical Ventilator 55 07/23/20 23:00 18 93/60 Mechanical Ventilator 55 07/23/20 23:00 18 93/60 Mechanical Ventilator 55 07/23/20 23:00 94 27 93/60 (71) 94 07/23/20 22:30 94 27 86/54 (65) 93 07/23/20 22:00 99.2 90 28 95/66 (76) 95 07/23/20 22:00 18 95/59 Mechanical Ventilator 50 07/23/20 22:00 18 95/57 Mechanical Ventilator 50 07/23/20 21:30 98 27 98/63 (75) 98 07/23/20 21:00 18 103/67 Mechanical Ventilator 50 07/23/20 21:00 18 103/67 Mechanical Ventilator 50 07/23/20 21:00 96 24 100/60 (73) 99 07/23/20 20:30 100 27 99/70 (80) 99 07/23/20 20:00 Mechanical Ventilator Mechanical Ventilator Mechanical Ventilator 07/23/20 20:00 92 07/23/20 20:00 50 07/23/20 20:00 95 27 97/65 (76) 100 07/23/20 20:00 18 96/65 Mechanical Ventilator 50 07/23/20 20:00 18 96/65 Mechanical Ventilator 50 07/23/20 19:30 98.9 95 25 98/66 (77) 100 07/23/20 19:15 93 23 60 07/23/20 19:00 96 27 95/65 (75) 100 07/23/20 19:00 18 99/62 Mechanical Ventilator 60 07/23/20 19:00 18 99/65 Mechanical Ventilator 60 07/23/20 18:30 96 27 94/64 (74) 100 07/23/20 18:15 96 27 97/68 (78) 100 07/23/20 18:00 27 97/68 Mechanical Ventilator 60 07/23/20 18:00 27 97/68 Mechanical Ventilator 60 07/23/20 18:00 97/68 07/23/20 18:00 99 22 97/68 (78) 100 07/23/20 18:00 95 25 97/68 (78) 100 07/23/20 17:45 96 27 103/67 (79) 100 07/23/20 17:30 97 27 97/69 (78) 100 07/23/20 17:00 27 97/69 Mechanical Ventilator 60 07/23/20 17:00 27 97/69 Mechanical Ventilator 60 07/23/20 17:00 97/69 07/23/20 17:00 98 26 85/72 (76) 99 07/23/20 16:15 103 29 98/69 (79) 99 07/23/20 16:00 100 07/23/20 16:00 60 07/23/20 16:00 99.1 102 28 98/69 (79) 99 07/23/20 16:00 31 98/69 Mechanical Ventilator 60 07/23/20 16:00 31 98/69 Mechanical Ventilator 60 07/23/20 16:00 98/69 07/23/20 16:00 Mechanical Ventilator Mechanical Ventilator Mechanical Ventilator 07/23/20 15:45 106 35 113/75 (88) 97 07/23/20 15:30 101 30 103/61 (75) 98 07/23/20 15:20 63 25 60 07/23/20 15:15 98 17 104/66 (79) 98 07/23/20 15:00 100 32 103/61 (75) 100 07/23/20 15:00 28 103/61 Mechanical Ventilator 60 07/23/20 15:00 38 101/62 Mechanical Ventilator 60 07/23/20 15:00 103/61 07/23/20 14:00 97 31 91/64 (73) 99 07/23/20 14:00 30 91/64 Mechanical Ventilator 60 07/23/20 14:00 31 91/64 Mechanical Ventilator 60 07/23/20 14:00 91/64 07/23/20 13:45 97 31 100/58 (72) 99 Intake and Output 07/23/20 07/24/20 19:00 07:00 Intake Total 1449.045 ml 1268 ml Output Total 532 ml 470 ml Balance 917.045 ml 798 ml Free Water 30 ml IV Total 1419.045 ml 1268 ml Output Urine Total 495 ml 340 ml Chest Tube Drainage Total 37 ml 130 ml Laboratory Tests Test 07/24/20 04:00 White Blood Count 11.1 K/UL (4.8-10.8) H Red Blood Count 2.49 M/UL (4.20-5.40) L Hemoglobin 7.1 G/DL (12.0-16.0) L Hematocrit 22.8 % (37.0-47.0) L Mean Corpuscular Volume 91 FL (80-99) Mean Corpuscular Hemoglobin 28.4 PG (27.0-31.0) Mean Corpuscular Hemoglobin Concent 31.2 G/DL (32.0-36.0) L Red Cell Distribution Width 16.7 % (11.6-14.8) H Platelet Count 248 K/UL (150-450) Mean Platelet Volume 7.4 FL (6.5-10.1) Neutrophils (%) (Auto) % (45.0-75.0) Lymphocytes (%) (Auto) % (20.0-45.0) Monocytes (%) (Auto) % (1.0-10.0) Eosinophils (%) (Auto) % (0.0-3.0) Basophils (%) (Auto) % (0.0-2.0) Prothrombin Time 12.4 SEC (9.30-11.50) H Prothromb Time International Ratio 1.1 (0.9-1.1) Activated Partial Thromboplast Time 34 SEC (23-33) H Sodium Level 138 MMOL/L (136-145) Potassium Level 4.0 MMOL/L (3.5-5.1) Chloride Level 100 MMOL/L (98-107) Carbon Dioxide Level 34 MMOL/L (21-32) H Anion Gap 4 mmol/L (5-15) L Blood Urea Nitrogen 16 mg/dL (7-18) Creatinine 0.6 MG/DL (0.55-1.30) Estimat Glomerular Filtration Rate > 60 mL/min (>60) Glucose Level 96 MG/DL (74-106) Calcium Level 9.4 MG/DL (8.5-10.1) Phosphorus Level 2.3 MG/DL (2.5-4.9) L Magnesium Level 1.6 MG/DL (1.8-2.4) L Total Bilirubin 0.2 MG/DL (0.2-1.0) Aspartate Amino Transf (AST/SGOT) 39 U/L (15-37) H Alanine Aminotransferase (ALT/SGPT) 27 U/L (12-78) Alkaline Phosphatase 56 U/L (46-116) C-Reactive Protein, Quantitative 8.2 mg/dL (0.00-0.90) H Pro-B-Type Natriuretic Peptide 583 pg/mL (0-125) H Total Protein 6.3 G/DL (6.4-8.2) L Albumin 2.3 G/DL (3.4-5.0) L Globulin 4.0 g/dL Albumin/Globulin Ratio 0.6 (1.0-2.7) L Objective HEAD AND NECK: Status post tracheostomy. NGT in place LUNGS: Coarse rhonchi.Right chest tube is in CARDIOVASCULAR: Regular S1 and S2 with no gallop. ABDOMEN: Soft. EXTREMITIES: 1+ pitting edema. Hill Burger MD Jul 24, 2020 13:35
--- NOTE | 2020-07-24 13:39 | Surgery Progress Note ---
Surgery Progress Note Subjective Procedure Performed right tube chest tube insertion Additional Comments chest tube output decreased oozing around tube mild no n/v/fc prbc as per heme today cxr improved Objective Last 24 Hour Vital Signs Date Time Temp Pulse Resp B/P (MAP) Pulse Ox O2 Delivery O2 Flow Rate FiO2 07/24/20 13:00 98 14 141/87 (105) 100 07/24/20 12:45 96 18 133/93 (106) 99 07/24/20 12:30 108 31 121/80 (94) 97 07/24/20 12:15 97 31 115/73 (87) 99 07/24/20 12:07 104/69 07/24/20 12:00 98.9 105 40 116/71 (86) 87 07/24/20 12:00 45 07/24/20 11:54 107 20 84 07/24/20 11:53 104 20 87 07/24/20 11:45 105 29 105/76 (86) 96 07/24/20 11:40 98.9 100 35 112/73 (86) 95 07/24/20 11:30 101 37 105/78 (87) 97 07/24/20 11:25 99.0 102 35 110/70 (83) 96 07/24/20 11:15 101 7 110/70 (83) 97 07/24/20 11:00 99.0 105 33 111/64 (80) 96 07/24/20 10:45 103 30 101/62 (75) 95 07/24/20 10:30 106 30 97/65 (76) 90 07/24/20 10:15 106 34 106/68 (81) 88 07/24/20 10:06 100.0 07/24/20 10:00 107 31 98/59 (72) 88 07/24/20 09:45 106 32 95/57 (70) 90 07/24/20 09:30 100.0 110 36 98/54 (69) 91 07/24/20 09:15 108 33 102/54 (70) 92 07/24/20 09:00 101 32 107/65 (79) 93 07/24/20 08:45 103 34 106/67 (80) 94 07/24/20 08:30 101 34 99/61 (74) 97 07/24/20 08:15 103 35 103/64 (77) 95 07/24/20 08:00 Mechanical Ventilator Mechanical Ventilator Mechanical Ventilator 07/24/20 08:00 40 07/24/20 08:00 100.6 100 27 99/64 (76) 96 07/24/20 07:45 105 36 116/79 (91) 95 07/24/20 07:30 109 42 121/77 (92) 84 07/24/20 07:15 99 34 106/67 (80) 91 07/24/20 07:00 101 33 104/63 (77) 91 07/24/20 07:00 16 104/63 Mechanical Ventilator 40 07/24/20 07:00 18 104/63 Mechanical Ventilator 40 07/24/20 06:31 96 18 07/24/20 06:30 97 32 105/62 (76) 92 07/24/20 06:15 104 50 115/59 (77) 90 07/24/20 06:00 99 30 105/65 (78) 99 07/24/20 06:00 18 102/60 Mechanical Ventilator 40 07/24/20 06:00 18 102/60 Mechanical Ventilator 40 07/24/20 05:30 98 32 104/64 (77) 100 07/24/20 05:23 18 99/66 Mechanical Ventilator 50 07/24/20 05:00 98 27 108/64 (79) 100 07/24/20 05:00 18 104/64 Mechanical Ventilator 50 07/24/20 05:00 18 104/64 Mechanical Ventilator 50 07/24/20 04:30 98 27 96/60 (72) 100 07/24/20 04:00 97 07/24/20 04:00 99.4 97 27 101/61 (74) 100 07/24/20 04:00 Mechanical Ventilator Mechanical Ventilator Mechanical Ventilator 07/24/20 04:00 18 96/60 Mechanical Ventilator 50 07/24/20 04:00 18 96/60 Mechanical Ventilator 50 07/24/20 04:00 50 07/24/20 03:40 98 33 50 07/24/20 03:30 103 36 112/74 (87) 98 07/24/20 03:00 18 105/63 Mechanical Ventilator 50 07/24/20 03:00 18 105/63 Mechanical Ventilator 50 07/24/20 03:00 95 31 96/61 (73) 99 07/24/20 02:30 100 32 108/67 (81) 96 07/24/20 02:00 96 30 102/60 (74) 96 07/24/20 02:00 18 102/60 Mechanical Ventilator 50 07/24/20 02:00 18 102/60 Mechanical Ventilator 50 07/24/20 01:30 95 26 98/58 (71) 99 07/24/20 01:00 96 25 100/59 (73) 100 07/24/20 01:00 18 99/58 Mechanical Ventilator 55 07/24/20 01:00 18 95/58 Mechanical Ventilator 50 07/24/20 00:30 98 27 95/58 (70) 100 07/24/20 00:00 55 07/24/20 00:00 Mechanical Ventilator Mechanical Ventilator Mechanical Ventilator 07/24/20 00:00 99.1 98 28 103/61 (75) 100 07/24/20 00:00 18 100/58 Mechanical Ventilator 55 07/24/20 00:00 18 100/58 Mechanical Ventilator 55 07/24/20 00:00 96 07/23/20 23:30 107 37 113/72 (86) 100 07/23/20 23:24 90 22 55 07/23/20 23:04 18 93/60 Mechanical Ventilator 55 07/23/20 23:00 18 93/60 Mechanical Ventilator 55 07/23/20 23:00 18 93/60 Mechanical Ventilator 55 07/23/20 23:00 94 27 93/60 (71) 94 07/23/20 22:30 94 27 86/54 (65) 93 07/23/20 22:00 99.2 90 28 95/66 (76) 95 07/23/20 22:00 18 95/59 Mechanical Ventilator 50 07/23/20 22:00 18 95/57 Mechanical Ventilator 50 07/23/20 21:30 98 27 98/63 (75) 98 07/23/20 21:00 18 103/67 Mechanical Ventilator 50 07/23/20 21:00 18 103/67 Mechanical Ventilator 50 07/23/20 21:00 96 24 100/60 (73) 99 07/23/20 20:30 100 27 99/70 (80) 99 07/23/20 20:00 Mechanical Ventilator Mechanical Ventilator Mechanical Ventilator 07/23/20 20:00 92 07/23/20 20:00 50 07/23/20 20:00 95 27 97/65 (76) 100 07/23/20 20:00 18 96/65 Mechanical Ventilator 50 07/23/20 20:00 18 96/65 Mechanical Ventilator 50 07/23/20 19:30 98.9 95 25 98/66 (77) 100 07/23/20 19:15 93 23 60 07/23/20 19:00 96 27 95/65 (75) 100 07/23/20 19:00 18 99/62 Mechanical Ventilator 60 07/23/20 19:00 18 99/65 Mechanical Ventilator 60 07/23/20 18:30 96 27 94/64 (74) 100 07/23/20 18:15 96 27 97/68 (78) 100 07/23/20 18:00 27 97/68 Mechanical Ventilator 60 07/23/20 18:00 27 97/68 Mechanical Ventilator 60 07/23/20 18:00 97/68 07/23/20 18:00 99 22 97/68 (78) 100 07/23/20 18:00 95 25 97/68 (78) 100 07/23/20 17:45 96 27 103/67 (79) 100 07/23/20 17:30 97 27 97/69 (78) 100 07/23/20 17:00 27 97/69 Mechanical Ventilator 60 07/23/20 17:00 27 97/69 Mechanical Ventilator 60 07/23/20 17:00 97/69 07/23/20 17:00 98 26 85/72 (76) 99 07/23/20 16:15 103 29 98/69 (79) 99 07/23/20 16:00 100 07/23/20 16:00 60 07/23/20 16:00 99.1 102 28 98/69 (79) 99 07/23/20 16:00 31 98/69 Mechanical Ventilator 60 07/23/20 16:00 31 98/69 Mechanical Ventilator 60 07/23/20 16:00 98/69 07/23/20 16:00 Mechanical Ventilator Mechanical Ventilator Mechanical Ventilator 07/23/20 15:45 106 35 113/75 (88) 97 07/23/20 15:30 101 30 103/61 (75) 98 07/23/20 15:20 63 25 60 07/23/20 15:15 98 17 104/66 (79) 98 07/23/20 15:00 100 32 103/61 (75) 100 07/23/20 15:00 28 103/61 Mechanical Ventilator 60 07/23/20 15:00 38 101/62 Mechanical Ventilator 60 07/23/20 15:00 103/61 07/23/20 14:00 97 31 /64 (73) 99 07/23/20 14:00 30 /64 Mechanical Ventilator 60 07/23/20 14:00 31 /64 Mechanical Ventilator 60 07/23/20 14:00 91/64 07/23/20 13:45 97 31 100/58 (72) 99 I&O Intake and Output 07/23/20 07/24/20 19:00 07:00 Intake Total 1449.045 ml 1268 ml Output Total 532 ml 470 ml Balance 917.045 ml 798 ml Free Water 30 ml IV Total 1419.045 ml 1268 ml Output Urine Total 495 ml 340 ml Chest Tube Drainage Total 37 ml 130 ml Dressing: saturated Wound: clean Drains: other Cardiovascular: RSR Respiratory: decreased breath sounds Abdomen: soft, flat, non-tender, present bowel sounds, non-distended Extremities: no edema, no tenderness, no cyanosis Laboratory Tests Test 07/24/20 04:00 White Blood Count 11.1 K/UL (4.8-10.8) H Red Blood Count 2.49 M/UL (4.20-5.40) L Hemoglobin 7.1 G/DL (12.0-16.0) L Hematocrit 22.8 % (37.0-47.0) L Mean Corpuscular Volume 91 FL (80-99) Mean Corpuscular Hemoglobin 28.4 PG (27.0-31.0) Mean Corpuscular Hemoglobin Concent 31.2 G/DL (32.0-36.0) L Red Cell Distribution Width 16.7 % (11.6-14.8) H Platelet Count 248 K/UL (150-450) Mean Platelet Volume 7.4 FL (6.5-10.1) Neutrophils (%) (Auto) % (45.0-75.0) Lymphocytes (%) (Auto) % (20.0-45.0) Monocytes (%) (Auto) % (1.0-10.0) Eosinophils (%) (Auto) % (0.0-3.0) Basophils (%) (Auto) % (0.0-2.0) Prothrombin Time 12.4 SEC (9.30-11.50) H Prothromb Time International Ratio 1.1 (0.9-1.1) Activated Partial Thromboplast Time 34 SEC (23-33) H Sodium Level 138 MMOL/L (136-145) Potassium Level 4.0 MMOL/L (3.5-5.1) Chloride Level 100 MMOL/L (98-107) Carbon Dioxide Level 34 MMOL/L (21-32) H Anion Gap 4 mmol/L (5-15) L Blood Urea Nitrogen 16 mg/dL (7-18) Creatinine 0.6 MG/DL (0.55-1.30) Estimat Glomerular Filtration Rate > 60 mL/min (>60) Glucose Level 96 MG/DL (74-106) Calcium Level 9.4 MG/DL (8.5-10.1) Phosphorus Level 2.3 MG/DL (2.5-4.9) L Magnesium Level 1.6 MG/DL (1.8-2.4) L Total Bilirubin 0.2 MG/DL (0.2-1.0) Aspartate Amino Transf (AST/SGOT) 39 U/L (15-37) H Alanine Aminotransferase (ALT/SGPT) 27 U/L (12-78) Alkaline Phosphatase 56 U/L (46-116) C-Reactive Protein, Quantitative 8.2 mg/dL (0.00-0.90) H Pro-B-Type Natriuretic Peptide 583 pg/mL (0-125) H Total Protein 6.3 G/DL (6.4-8.2) L Albumin 2.3 G/DL (3.4-5.0) L Globulin 4.0 g/dL Albumin/Globulin Ratio 0.6 (1.0-2.7) L Plan Problems: (1) Respiratory distress (2) Respiratory failure Assessment & Plan: 50-year-old female Covid positive respiratory insufficiency intubated on ventilatory support declining. Leukocytosis increase oxygen requirement. Vent settings per pulmonology reviewed identified and agree. Unfortunately further surgical invention at this time is not appropriate as patient is not a candidate and her current condition. Prognosis overall guarded. Tracheostomy can be considered in the future if recovering or shows improvement and requires unable to be weaned from ventilator support. Currently okay for nutritional optimization with NG tube. Will need significant monitoring for decubitus formation given patient's size and condition. Okay for air mattress tolerated. Turn every 2 hours as tolerated. Patient is otherwise critically ill and blood pressure labile. Will need to monitor closely.Bilater al infiltrates are again demonstrated. Stable tube and line positions. will need trach will need to wean vent first no cuff leak trach okay Improving weaning well DC planning placement much improved peg placement trach changed acls now resuscitated (3) Hypoxia (4) Pneumonia due to COVID-19 virus Assessment & Plan: ++ as per pulm and ID (5) Diabetes mellitus out of control Assessment & Plan: DAILY ESTIMATED NEEDS: Needs based on Critical care, obesity 11-14kcal/kg actual body wt (140kg) kcals/kg 8100-1567 total kcals 1.5-2.0g prot/kg IBW (64.5kg) g protein/kg 96-129 g total protein 25-30ml/kg abw (83kg) mL/kg 1251-3638 total fluid mLs NUTRITION DIAGNOSIS: Swallowing difficulty R/T respiratory failure as evidenced by pt orally intubated and sedated, on OGT feeds. CURRENT TF: Vital 1.2 goal of 60ml/hr ENTERAL NUTRITION RECOMMENDATIONS: Vital AF 1.2 @ 60ml/hr x 24 hrs to provide 1440ml, 1728kcal, 108g prot, 1168ml free water * Maintain current critical care and carb controlled TF formula of Vital AF * TF @ goal meeds 100% est kcal/prot needs * HOB over 30 degrees/ water flush per MD TF may be lowered to 55ml/hr for improved BG control while maintaining Kcal and pro needs. ADDITIONAL RECOMMENDATIONS: * Calibrated bedscale wt * Monitor Propofol rate, need for TF adjustment-> now off * Monitor BGs closely : now improved, on novolog q 6rs + NISS * Monitor lytes- K elevated, monitor need for TF change * Rec bowel regimen- now w/ rectal tube . (6) Pneumothorax on right Assessment & Plan: right tension pneumothorax trach changed for cuff leak and decreased volumes pressures high after and ptx tension acls resuscitated right chest tube placed ptx resolved cont chest tube to suction am cxr wean vent Right chest tube, tracheostomy, nasogastric tube remain. Previously demonstrated subcutaneous emphysema has nearly completely cleared, with only questionably small residual in the left supraclavicular fossa. Extensive bilateral infiltrates persist. There is no pneumothorax currently. The heart is borderline enlarged. Pneumoperitoneum persists, may be slightly decreased Impression: Markedly improved subcutaneous emphysema Unchanged bilateral infiltrates Persistent but perhaps slightly decreased pneumoperitoneum (7) DEVENDRA (acute kidney injury) (8) Morbid obesity Az Devine Jul 24, 2020 13:39
--- NOTE | 2020-07-24 13:46 | Cardiac Electrophysiology PN ---
Assessment/Plan Assessment/Plan 1. Respiratory failure due to COVID-19 pneumonia. On tracheostomy on 100 % Fio2. Trach exchanged 07/22/[address] Devine Echo EF 60% 2. S/P Code x2 with hypotension and sammy arrest on 07/22/20 likely due to Pneumothorax No further after chest tube. HR stable and on LEvo only 4 Mcg 3. Right Pneumothorax, S/P chest tube placement 4. Hypotension, on midodrine 10 mg 3 times daily and Levophed 4 mcg 5. Dysphagia. S/P PEG 07/24/20 6. Right lower extremity DVT. Follow up by Hematology. May need IVC filter placement. 7. Severe anemia, Getting PRBC DW RN and Dr Devine Subjective Subjective In ICU on the Vent on 45 % Fio2 and PEEP 5 in SR. Coded twice for hypotension and bradycardia while on the Vent about 20 minutes after tracheostomy was changed 07/22/20 Found to have Right Pneumothorax and underwent Right chest tube placement by Dr Devine Getting PRBC. S/P PEG today Objective Last 24 Hour Vital Signs Date Time Temp Pulse Resp B/P (MAP) Pulse Ox O2 Delivery O2 Flow Rate FiO2 07/24/20 13:00 98 14 141/87 (105) 100 07/24/20 12:45 96 18 133/93 (106) 99 07/24/20 12:30 108 31 121/80 (94) 97 07/24/20 12:15 97 31 115/73 (87) 99 07/24/20 12:07 104/69 07/24/20 12:00 98.9 105 40 116/71 (86) 87 07/24/20 12:00 99 07/24/20 12:00 Mechanical Ventilator Mechanical Ventilator Mechanical Ventilator 07/24/20 12:00 45 07/24/20 11:54 107 20 84 07/24/20 11:53 104 20 87 07/24/20 11:45 105 29 105/76 (86) 96 07/24/20 11:40 98.9 100 35 112/73 (86) 95 07/24/20 11:30 101 37 105/78 (87) 97 07/24/20 11:25 99.0 102 35 110/70 (83) 96 07/24/20 11:15 101 7 110/70 (83) 97 07/24/20 11:00 99.0 105 33 111/64 (80) 96 07/24/20 10:45 103 30 101/62 (75) 95 07/24/20 10:30 106 30 97/65 (76) 90 07/24/20 10:15 106 34 106/68 (81) 88 07/24/20 10:06 100.0 07/24/20 10:00 107 31 98/59 (72) 88 07/24/20 09:45 106 32 95/57 (70) 90 07/24/20 09:30 100.0 110 36 98/54 (69) 91 07/24/20 09:15 108 33 102/54 (70) 92 07/24/20 09:00 101 32 107/65 (79) 93 07/24/20 08:45 103 34 106/67 (80) 94 07/24/20 08:30 101 34 99/61 (74) 97 07/24/20 08:15 103 35 103/64 (77) 95 07/24/20 08:00 Mechanical Ventilator Mechanical Ventilator Mechanical Ventilator 07/24/20 08:00 102 07/24/20 08:00 40 07/24/20 08:00 100.6 100 27 99/64 (76) 96 07/24/20 07:45 105 36 116/79 (91) 95 07/24/20 07:30 109 42 121/77 (92) 84 07/24/20 07:15 99 34 106/67 (80) 91 07/24/20 07:00 101 33 104/63 (77) 91 07/24/20 07:00 16 104/63 Mechanical Ventilator 40 07/24/20 07:00 18 104/63 Mechanical Ventilator 40 07/24/20 06:31 96 18 07/24/20 06:30 97 32 105/62 (76) 92 07/24/20 06:15 104 50 115/59 (77) 90 07/24/20 06:00 99 30 105/65 (78) 99 07/24/20 06:00 18 102/60 Mechanical Ventilator 40 07/24/20 06:00 18 102/60 Mechanical Ventilator 40 07/24/20 05:30 98 32 104/64 (77) 100 07/24/20 05:23 18 99/66 Mechanical Ventilator 50 07/24/20 05:00 98 27 108/64 (79) 100 07/24/20 05:00 18 104/64 Mechanical Ventilator 50 07/24/20 05:00 18 104/64 Mechanical Ventilator 50 07/24/20 04:30 98 27 96/60 (72) 100 07/24/20 04:00 97 07/24/20 04:00 99.4 97 27 101/61 (74) 100 07/24/20 04:00 Mechanical Ventilator Mechanical Ventilator Mechanical Ventilator 07/24/20 04:00 18 96/60 Mechanical Ventilator 50 07/24/20 04:00 18 96/60 Mechanical Ventilator 50 07/24/20 04:00 50 07/24/20 03:40 98 33 50 07/24/20 03:30 103 36 112/74 (87) 98 07/24/20 03:00 18 105/63 Mechanical Ventilator 50 07/24/20 03:00 18 105/63 Mechanical Ventilator 50 07/24/20 03:00 95 31 96/61 (73) 99 07/24/20 02:30 100 32 108/67 (81) 96 07/24/20 02:00 96 30 102/60 (74) 96 07/24/20 02:00 18 102/60 Mechanical Ventilator 50 07/24/20 02:00 18 102/60 Mechanical Ventilator 50 07/24/20 01:30 95 26 98/58 (71) 99 07/24/20 01:00 96 25 100/59 (73) 100 07/24/20 01:00 18 99/58 Mechanical Ventilator 55 07/24/20 01:00 18 95/58 Mechanical Ventilator 50 07/24/20 00:30 98 27 95/58 (70) 100 07/24/20 00:00 55 07/24/20 00:00 Mechanical Ventilator Mechanical Ventilator Mechanical Ventilator 07/24/20 00:00 99.1 98 28 103/61 (75) 100 07/24/20 00:00 18 100/58 Mechanical Ventilator 55 07/24/20 00:00 18 100/58 Mechanical Ventilator 55 07/24/20 00:00 96 07/23/20 23:30 107 37 113/72 (86) 100 07/23/20 23:24 90 22 55 07/23/20 23:04 18 93/60 Mechanical Ventilator 55 07/23/20 23:00 18 93/60 Mechanical Ventilator 55 07/23/20 23:00 18 93/60 Mechanical Ventilator 55 07/23/20 23:00 94 27 93/60 (71) 94 07/23/20 22:30 94 27 86/54 (65) 93 07/23/20 22:00 99.2 90 28 95/66 (76) 95 07/23/20 22:00 18 95/59 Mechanical Ventilator 50 07/23/20 22:00 18 95/57 Mechanical Ventilator 50 07/23/20 21:30 98 27 98/63 (75) 98 07/23/20 21:00 18 103/67 Mechanical Ventilator 50 07/23/20 21:00 18 103/67 Mechanical Ventilator 50 07/23/20 21:00 96 24 100/60 (73) 99 07/23/20 20:30 100 27 99/70 (80) 99 07/23/20 20:00 Mechanical Ventilator Mechanical Ventilator Mechanical Ventilator 07/23/20 20:00 92 07/23/20 20:00 50 07/23/20 20:00 95 27 97/65 (76) 100 07/23/20 20:00 18 96/65 Mechanical Ventilator 50 07/23/20 20:00 18 96/65 Mechanical Ventilator 50 07/23/20 19:30 98.9 95 25 98/66 (77) 100 07/23/20 19:15 93 23 60 07/23/20 19:00 96 27 95/65 (75) 100 07/23/20 19:00 18 99/62 Mechanical Ventilator 60 07/23/20 19:00 18 99/65 Mechanical Ventilator 60 07/23/20 18:30 96 27 94/64 (74) 100 07/23/20 18:15 96 27 97/68 (78) 100 07/23/20 18:00 27 97/68 Mechanical Ventilator 60 07/23/20 18:00 27 97/68 Mechanical Ventilator 60 07/23/20 18:00 97/68 07/23/20 18:00 99 22 97/68 (78) 100 07/23/20 18:00 95 25 97/68 (78) 100 07/23/20 17:45 96 27 103/67 (79) 100 07/23/20 17:30 97 27 97/69 (78) 100 07/23/20 17:00 27 97/69 Mechanical Ventilator 60 07/23/20 17:00 27 97/69 Mechanical Ventilator 60 07/23/20 17:00 97/69 07/23/20 17:00 98 26 85/72 (76) 99 07/23/20 16:15 103 29 98/69 (79) 99 07/23/20 16:00 100 07/23/20 16:00 60 07/23/20 16:00 99.1 102 28 98/69 (79) 99 07/23/20 16:00 31 98/69 Mechanical Ventilator 60 07/23/20 16:00 31 98/69 Mechanical Ventilator 60 07/23/20 16:00 98/69 07/23/20 16:00 Mechanical Ventilator Mechanical Ventilator Mechanical Ventilator 07/23/20 15:45 106 35 113/75 (88) 97 07/23/20 15:30 101 30 103/61 (75) 98 07/23/20 15:20 63 25 60 07/23/20 15:15 98 17 104/66 (79) 98 07/23/20 15:00 100 32 103/61 (75) 100 07/23/20 15:00 28 103/61 Mechanical Ventilator 60 07/23/20 15:00 38 101/62 Mechanical Ventilator 60 07/23/20 15:00 103/61 07/23/20 14:00 97 31 91/64 (73) 99 07/23/20 14:00 30 91/64 Mechanical Ventilator 60 07/23/20 14:00 31 91/64 Mechanical Ventilator 60 07/23/20 14:00 91/64 Intake and Output 07/23/20 07/24/20 19:00 07:00 Intake Total 1449.045 ml 1268 ml Output Total 532 ml 470 ml Balance 917.045 ml 798 ml Free Water 30 ml IV Total 1419.045 ml 1268 ml Output Urine Total 495 ml 340 ml Chest Tube Drainage Total 37 ml 130 ml Laboratory Tests Test 07/24/20 04:00 White Blood Count 11.1 K/UL (4.8-10.8) H Red Blood Count 2.49 M/UL (4.20-5.40) L Hemoglobin 7.1 G/DL (12.0-16.0) L Hematocrit 22.8 % (37.0-47.0) L Mean Corpuscular Volume 91 FL (80-99) Mean Corpuscular Hemoglobin 28.4 PG (27.0-31.0) Mean Corpuscular Hemoglobin Concent 31.2 G/DL (32.0-36.0) L Red Cell Distribution Width 16.7 % (11.6-14.8) H Platelet Count 248 K/UL (150-450) Mean Platelet Volume 7.4 FL (6.5-10.1) Neutrophils (%) (Auto) % (45.0-75.0) Lymphocytes (%) (Auto) % (20.0-45.0) Monocytes (%) (Auto) % (1.0-10.0) Eosinophils (%) (Auto) % (0.0-3.0) Basophils (%) (Auto) % (0.0-2.0) Prothrombin Time 12.4 SEC (9.30-11.50) H Prothromb Time International Ratio 1.1 (0.9-1.1) Activated Partial Thromboplast Time 34 SEC (23-33) H Sodium Level 138 MMOL/L (136-145) Potassium Level 4.0 MMOL/L (3.5-5.1) Chloride Level 100 MMOL/L (98-107) Carbon Dioxide Level 34 MMOL/L (21-32) H Anion Gap 4 mmol/L (5-15) L Blood Urea Nitrogen 16 mg/dL (7-18) Creatinine 0.6 MG/DL (0.55-1.30) Estimat Glomerular Filtration Rate > 60 mL/min (>60) Glucose Level 96 MG/DL (74-106) Calcium Level 9.4 MG/DL (8.5-10.1) Phosphorus Level 2.3 MG/DL (2.5-4.9) L Magnesium Level 1.6 MG/DL (1.8-2.4) L Total Bilirubin 0.2 MG/DL (0.2-1.0) Aspartate Amino Transf (AST/SGOT) 39 U/L (15-37) H Alanine Aminotransferase (ALT/SGPT) 27 U/L (12-78) Alkaline Phosphatase 56 U/L (46-116) C-Reactive Protein, Quantitative 8.2 mg/dL (0.00-0.90) H Pro-B-Type Natriuretic Peptide 583 pg/mL (0-125) H Total Protein 6.3 G/DL (6.4-8.2) L Albumin 2.3 G/DL (3.4-5.0) L Globulin 4.0 g/dL Albumin/Globulin Ratio 0.6 (1.0-2.7) L Objective HEAD AND NECK: Status post tracheostomy LUNGS: Coarse rhonchi.Right chest tube is in CARDIOVASCULAR: Regular S1 and S2 with no gallop. ABDOMEN: Soft.S/P PEG EXTREMITIES: 1+ pitting edema. Hill Burger MD Jul 24, 2020 13:46
--- NOTE | 2020-07-24 13:59 | Procedure Note ---
DATE OF PROCEDURE: 07/24/2020 SURGEON: Ryan Strong MD. REFERRING PHYSICIAN: Tank Del Cid DO. PROCEDURE: Upper endoscopy with PEG placement. ANESTHESIA: Per Dr. Malagon. INSTRUMENT: Olympus adult flexible upper endoscope. INDICATION: Dysphagia. REASON FOR PROCEDURE: The procedure, risks, benefits, and possible consequences, including hemorrhage, aspiration, perforation and infection, and alternative treatments, were explained to the patient/legal guardian by Dr. Ryan Strong and the patient/legal guardian understood and accepted these risks. PROCEDURE IN DETAIL: After informed consent was obtained and the patient was adequately sedated, Olympus upper endoscope was advanced from mouth into the second portion of the duodenum and retroflexion was performed in the stomach. Then under endoscopic guidance and under sterile condition, a 20-Cameroonian pull type of G-tube was successfully placed in epigastric area. The distance from the tip of the tube to skin was about 4 cm in size. The patient tolerated the procedure very well without any complication. SUMMARY OF FINDING: Status post successful PEG placement. RECOMMENDATIONS: 1. Abdominal binder. 2. Elevate the head of the bed at all times. 3. G-tube flush. 4. G-tube care. 5. Start tube feeding later today. I want to thank Dr. Tank Del Cid for this kind referral. Ryan Strong M.D. DR: DARLING JOB#: [id number] CC:
--- NOTE | 2020-07-24 14:40 | NUR ---
RESPIRATORY NOTE: FiO2 was increased from 45 % to 55 % due to saturation falling to 84%. Amy ELLINGTON aware.
--- NOTE | 2020-07-24 15:33 | Brief Operative Note ---
Immediate Post Operative Note Operative Note Pre-op Diagnosis: needs IV access Procedure: PICC Post-op Diagnosis: same as pre-op Surgeon: Cristian Villagomez Anesthesia: local Specimen: none Complications: none Fluids: none Implant(s) used?: No Bob Villagomez MD Jul 24, 2020 15:33
[2020-07-24] MEDS: Versed 100mg/NS 200ml 200 ML IV PRN (17:54)
--- NOTE | 2020-07-24 18:35 | NUR ---
insurance CLINICALS FAXED TO [facility] T: [phone] EXT [phone] F: [phone]
--- NOTE | 2020-07-24 19:20 | NUR ---
NURSE NOTES: Received patient from Guillaume RN. Pt is sedated and obtunded Patient noted to be trached with a Shiely 7. Vent settings : AC 15 TV400, FiO2 55% and Peep of 5. Current SpO2 is 100%. RR 20, patient is sedated with RASS score of -2. Peg-tube noted, CDI. R chest tube noted on low continuos suctioning. ROX PICC double lumen and R fem TLC noted with Versed @5mg/hr, Fentanyl@100mcgs/hr, and D51/2NS @75 ml/hr, CDI. Current vitals are stable. NSR monitor. Peripheral pulses noted equal bilaterally. Pedal pulses noted equal and bilateral. Safety measures observed and no acute distress noted. Will continue to monitor.
--- NOTE | 2020-07-24 19:45 | NUR ---
193: Received report from previous RN. Pt on trach to vent. Pt slightly sedated. Pt awaken to voice and speaks in Fijian. Pt remains with R chest tube with significant output overnight. Pt with low hemoglobin with orders to transfuse 1 unit PRBC. 1030: Dr. Devine at bedside. Made aware of oozing to chest tube site. Chest tube placed to water seal. 1130: Dr. Strong at bedside to place PEG tube. 1200: Peg placed to LLQ without incident. Pt finished receiving PRBC without any adverse reaction. 1430: MD at bedside to place PICC line. 1600: Pt with L UA PICC ok to use. 1929: Report given to RAKEL Hooker. RN made aware that femoral line needs to be d/c'd. All questions answered. VSS. Care continues.
[2020-07-24] MEDS: Dyna-Hex 2% Top Sol 2oz TOPIC SCH (20:02)
--- NOTE | 2020-07-24 20:52 | Diagnostic Imaging Report ---
Indications: Needs long-term IV access Technique: Procedure performed at bedside. Procedural timeout performed. Ultrasound confirms patent compressible left brachial vein. Total sterile technique, including sterile probe cover and sterile gel, sterile gloves, hand hygiene, hat, mask,, sterile gown, large sterile drape, and preparation with 2% chlorhexidine utilized. Local anesthesia with 1% lidocaine. Under real-time ultrasound guidance with real-time visualization of the needle entering the vein, puncture left brachial vein using 21-gauge needle, passage 0.018 guidewire, exchange for 4 Montenegrin peel-away sheath. 4 Montenegrin Bard dual-lumen power PICC cut to 46 cm. It was inserted through the peel-away sheath. Peel-away sheath and guidewire removed. Catheter fixed to the skin. Both catheter ports aspirated and flushed. Patient tolerated procedure well, without immediate complication. Followup chest x-ray obtained, documents catheter tip position at the innominate venous confluence Impression: Successful bedside placement of left arm PICC under sonographic guidance, as described above.
--- NOTE | 2020-07-24 21:00 | NUR ---
NURSE NOTES: PM meds given Turned and repositioned. Oral care provided.
--- NOTE | 2020-07-24 21:59 | NUR ---
NURSE NOTES: Left a message on Dr. Strong's pager ([phone]) if it's okay to use new Peg-tube or not. Waiting call back.
--- NOTE | 2020-07-24 22:23 | NUR ---
NURSE NOTES: Left a message 2nd time on Dr. Strong's pager ([phone]) if it's okay to use new Peg-tube or not. Waiting call back.
--- NOTE | 2020-07-24 23:00 | NUR ---
NURSE NOTES: Left a message 3rd time on Dr. Strong's pager ([phone]) if it's okay to use new Peg-tube or not. Waiting call back.
--- NOTE | 2020-07-24 23:34 | NUR ---
NURSE NOTES: Discussed with file system installer and Nursing pest management supervisor. Tablet meds not given for tonight.
[2020-07-25] VITALS (70 sets, daily range): BP systolic 85–106; BP diastolic 50–73
--- NOTE | 2020-07-25 01:00 | NUR ---
NURSE NOTES: Pt remains sedated and obtunded Patient noted to be trached with a Shiley 7. Vent settings : AC 15 TV400, FiO2 55% and Peep of 5. Current SpO2 is 100%. RR 20, patient is sedated with RASS score of -2. Peg-tube noted, CDI. Not received okay to use order yet. R chest tube noted on low continuos suctioning, CDI. ROX PICC double lumen and R fem TLC noted with Versed @5mg/hr, Fentanyl@100mcgs/hr, and D51/2NS @75 ml/hr, CDI. Current vitals are stable. NSR monitor. Peripheral pulses noted equal bilaterally. Pedal pulses noted equal and bilateral. Safety measures observed and no acute distress noted. Will continue to monitor.
--- NOTE | 2020-07-25 03:00 | NUR ---
NURSE NOTES: AM care and CHG bath given. Turned and repositioned Oral care provided.
[2020-07-25] MEDS: Meropenem 1 GM in NS 55 ML IVPB SCH ×3 (04:00→20:00)
--- NOTE | 2020-07-25 04:00 | NUR ---
NURSE NOTES: DC R Femoral with TLC. 3min manual pressure given and dressing applied. No bleeding noted.
[2020-07-25] MEDS: fentaNYL 2500mcg/NS 250ml 250 ML IV SCH (05:00)
--- NOTE | 2020-07-25 05:15 | NUR ---
NURSE NOTES: Pt suddenly start agitating. Start titrate Verced from 5mcg @0500 to 10mcg @0615.
[2020-07-25] MEDS: Midodrine 10mg tab GT SCH ×3 (05:39→22:07)
[2020-07-25 05:48] LABS: HEMATOCRIT 25.7 % (37.0-47.0); HEMOGLOBIN 7.9 G/DL (12.0-16.0); MEAN CORPUSCULAR VOLUME 92 FL (80-99); PLATELET COUNT 258 K/UL (150-450); RED CELL DISTRIBUTION WIDTH 16.9 % (11.6-14.8); WHITE BLOOD COUNT 11.1 K/UL (4.8-10.8)
[2020-07-25 05:58] LABS: ALANINE AMINOTRANSFERASE 22 U/L (12-78); ALBUMIN 2.2 G/DL (3.4-5.0); ALBUMIN/GLOBULIN RATIO 0.6 (1.0-2.7); ALKALINE PHOSPHATASE 63 U/L (46-116); ANION GAP 3 mmol/L (5-15); ASPARTATE AMINO TRANSFERASE 27 U/L (15-37); BILIRUBIN,TOTAL 0.4 MG/DL (0.2-1.0); BLOOD UREA NITROGEN 10 mg/dL (7-18); CALCIUM 8.6 MG/DL (8.5-10.1); CARBON DIOXIDE 34 MMOL/L (21-32); CHLORIDE 102 MMOL/L (98-107); CREATININE 0.5 MG/DL (0.55-1.30); POTASSIUM 3.8 MMOL/L (3.5-5.1); SODIUM 138 MMOL/L (136-145)
--- NOTE | 2020-07-25 06:45 | Hematology/Onc Progress Note ---
Assessment/Plan Assessment/Plan # Deep vein thrombosis of the right calf --> given onoing anemia and low plts --> consider ivc if bleeding--once stable, needs it placed --> once stable, for radiology and ivc filter placement # Thrombocytopenia is due to infection/underlying covid19+++ --> ABX ceftriaxone -->zosyn-->off --> on steriods likely cause of initial wbc --> per pulm --> plt 107->156-->192-->205 --> smear reviewed # Leukocytosis due to Pneumonia due to COVID-19 virus --> per pulm rx -> sp remdesivir --> wbc 11.9-->11-->21 # Anemia due to chronic disease --> hgb goal is >7 --> transfuse prn --> ferritin is >1000 --> hold off on iron --> 10-->9.8->9-->8-->8.2-->9.4-->8.1-->9.9-->9.6-->9.5-->9.6--> 8.6-->11-->8.4-->7.1-->7.9 --> 1 unit prbc 07/24 # Elevated ddimer due to covid19++ --> duplex legs is negative --> underlying covid rx # Hypoxia -> due to covid19 --> steriods as needed # Hypoxemia --> rx same as above # Respiratory failure --> on vent/trach --> per pulm # Diabetes mellitus out of control --> hgb a1c goal <7 # Poor prognosis # Dvt ppx ivc filter once more stable Appreciate consultation and dw RN Subjective Allergies: Coded Allergies: No Known Allergies (Unverified , 05/28/20) All Systems: reviewed and negative except above Subjective 06/10 nv, on vent, with ogt, on fentanyl and versed, plt stable 06/11 nv, vent adjusted is on ogt, meds reviewed 06/12 nv, vent, meds noted, labs noted, no bleeding, hgb 10.4 06/13 nv, is on vent, meds reviewed, no bleeding, cbc reviewed 06/14 nv, on vent, tachy, labs reviewed, gross hematuria, febrile overnight, abx 06/17 nv, on vent, labs noted, no major changes, feeling better overnight 06/18 nv, meds reviewed, labs noted, no major events, hgb 8.6 06/19 nv, remains intubated, with fluids, labs reviewed, meds noted 06/20 nv, intubated remains on restraints, meds noted as well, as labs 06/21 nv, remains on vent, on restraints, meds reviewed, labs noted 06/22: covering Dr. Del Cid no acute events 06/23 sedated, on vent, nv, intubated, meds reviewed, versed 06/24 nv, on vent, no night sweats, no bleeding, remains in icu 06/25 nv, on vent, icu, meds noted, no bleeding, comfortable 06/26 nv, on versed, icu, weaning parameters, labs noted 06/27 nv, overnight fighting vent, as per pulm fentanyl on board 06/28 nv, on vent, labs reviewed, as per pulm, meds noted 06/30 nv, icu, labs pending, is on fentanyl, versed, no new changes 07/01 nv, icu, is on vent, labs pending, no new changes per rn 07/02 nv, icu is on vent, labs noted, hgb is stable 07/03 nv, icu, is on vent, potential trrach when stable, cbc reviewed 07/04 icu, nv, labs are noted, stable for trach today dw Rn Dl 07/05 icu, nv, on vent, with ng and picc in place, labs noted, s/p trach 07/07 icu, nv, on tv, no bleeding, labs noted, meds reviewed 07/08 icu, nv, on tv, labs reviewed, meds noted, no bleeding 07/09 icu, nv, meds noted, no bleeding, blood transfusion was completed 07/10 icu, nv, labs ntoed, no bleeding, hgb improved, hgb 7.8 07/11 icu, nv, labs reviewed, hgb is improved, for ivcf if stabilizes 07/12 icu, nv, labs reviewed, meds noted, no bleeding, remains on vent 07/13 icu, on vent, nv, no bleeding, labs reviewed, no major events, dw rn 07/14 icu, on vent, nv, tolerating ngt feeds, bowen Rn, meds reviewed 07/15 icu, on vent, trach, tolerating ngt, meds noted, no bleeding 07/16 icu, vent, labs are noted, with trach, is stable, hgb 9.2 07/17 icu, had a bm overnight, remains on vent with trach, labs noted 07/18 icu, nv, labs are ntoed, no bleeding, on trach, on levophed 07/20 nc, icu, meds noted, v/t, no bleeding, labs noted, on versed 07/21 nv, trach/vent, tube feeds on hold, labs reviewed, icu 07/22 nv, icu, bp remains high, on v/t, labs noted, no bleeding 07/23 nv, ct is in place, on v/t, meds reviewed, in icu, on LEVO 07/24 nv, ct with blood secretions, to get 1 unit prbc today, icu 07/25 icu, nv, trach/v, obtunded, sedated, no bleeding, bowen gracia Objective Objective Current Medications Medications (Trade) Dose Ordered Sig/Zelda Route PRN Reason Start Time Stop Time Status Last Admin Dose Admin Acetaminophen (Tylenol) 650 mg Q4H PRN NG Temp >100.5 06/29/20 10:15 07/29/20 10:14 07/24/20 09:04 Acetaminophen (Tylenol) 650 mg Q6H PRN NG Mild Pain (Pain Scale 1-3) 06/29/20 10:15 07/29/20 10:14 07/22/20 11:56 Calcitonin [place] (Miacalcin) 1 sprays DAILY NASAL 07/22/20 14:00 10/20/20 13:59 07/24/20 08:49 Chlorhexidine Gluconate (Inna-Hex 2%) 1 applic DAILY@2000 TOPIC 07/20/20 20:00 10/18/20 19:59 07/24/20 20:02 Dextrose (Dextrose 50%) 25 ml Q30M PRN IV Hypoglycemia 06/05/20 10:45 09/03/20 10:44 Dextrose (Dextrose 50%) 50 ml Q30M PRN IV Hypoglycemia 06/05/20 10:45 09/03/20 10:44 Dextrose/Sodium Chloride 1,000 ml @ 75 mls/hr [id number] IV 07/20/20 12:30 08/19/20 12:29 07/24/20 22:00 Enoxaparin Sodium (Lovenox) 110 mg EVERY 12 HOURS SUBQ 07/17/20 21:00 10/15/20 20:59 07/23/20 20:19 Fentanyl Citrate 250 ml @ 1 mls/hr Q24H IV 07/25/20 05:00 07/27/20 04:59 07/25/20 05:00 Guaifenesin/ Codeine Phosphate (Robitussin with codeine) 5 ml Q6H PRN NG For Cough 07/14/20 14:15 08/13/20 14:14 07/18/20 21:44 Heparin Sodium/ Sodium Chloride (Heparin 1000 units/500ml Premix) 1,000 unit ONCE PRN INJ radiology use 07/24/20 12:30 07/26/20 12:29 Lansoprazole (Prevacid) 30 mg DAILY GT 07/18/20 09:00 08/09/20 08:59 07/24/20 08:48 Lidocaine HCl (Xylocaine 1% 30ml) 30 ml ONCE PRN INJ radiology use 07/24/20 12:30 07/26/20 12:29 Meropenem 1 gm/ Sodium Chloride 55 ml @ 110 mls/hr Q8H IVPB 07/22/20 12:00 07/27/20 11:59 07/25/20 04:00 Midazolam HCl 200 ml @ 0 mls/hr Q24H PRN IV sedation 07/22/20 14:06 07/29/20 14:05 07/24/20 17:54 Midodrine (Pro-Amatine) 10 mg Q8HR GT 06/30/20 14:00 09/12/20 13:59 07/24/20 05:22 Norepinephrine Bitartrate 8 mg/ Dextrose 250 ml @ 0 mls/hr Q24H IV 07/22/20 13:00 07/25/20 12:59 07/23/20 04:08 Quetiapine Fumarate (SEROqueL) 50 mg Q12HR GT 07/16/20 13:30 08/30/20 13:29 07/24/20 08:48 Last 24 Hour Vital Signs Date Time Temp Pulse Resp B/P (MAP) Pulse Ox O2 Delivery O2 Flow Rate FiO2 07/25/20 06:15 22 104/70 Mechanical Ventilator 55 07/25/20 06:15 105 22 104/70 (81) 100 07/25/20 06:00 30 102/67 55 07/25/20 06:00 30 102/67 Mechanical Ventilator 55 07/25/20 06:00 99 30 102/67 (79) 100 07/25/20 05:45 94 25 97/56 (70) 100 07/25/20 05:45 25 97/56 Mechanical Ventilator 55 07/25/20 05:30 31 96/57 Mechanical Ventilator 55 07/25/20 05:30 95 31 96/57 (70) 100 07/25/20 05:15 96 24 97/57 (70) 100 07/25/20 05:15 14 97/57 Mechanical Ventilator 55 07/25/20 05:00 95 28 96/58 (71) 100 07/25/20 05:00 30 96/58 Mechanical Ventilator 55 07/25/20 05:00 30 96/58 Mechanical Ventilator 55 07/25/20 04:55 98 27 55 07/25/20 04:30 95 28 89/53 (65) 100 07/25/20 04:00 97 07/25/20 04:00 55 07/25/20 04:00 32 105/73 Mechanical Ventilator 55 07/25/20 04:00 32 105/73 Mechanical Ventilator 55 07/25/20 04:00 97 32 105/73 (84) 100 07/25/20 04:00 Mechanical Ventilator Mechanical Ventilator Mechanical Ventilator 07/25/20 03:30 97 31 106/68 (81) 100 07/25/20 03:20 97 29 55 07/25/20 03:00 28 94/58 Mechanical Ventilator 55 07/25/20 03:00 28 94/58 Mechanical Ventilator 55 07/25/20 03:00 92 28 94/58 (70) 100 07/25/20 02:30 94 27 103/66 (78) 100 07/25/20 02:00 28 101/64 Mechanical Ventilator 55 07/25/20 02:00 28 101/64 Mechanical Ventilator 55 07/25/20 02:00 93 28 101/64 (76) 100 07/25/20 01:30 93 31 99/67 (78) 100 07/25/20 01:00 27 98/66 Mechanical Ventilator 55 07/25/20 01:00 27 98/66 Mechanical Ventilator 55 07/25/20 01:00 98.5 93 27 98/66 (77) 100 07/25/20 00:30 92 28 93/63 (73) 100 07/25/20 00:00 29 94/63 Mechanical Ventilator 55 07/25/20 00:00 29 94/63 Mechanical Ventilator 55 07/25/20 00:00 55 07/25/20 00:00 92 07/25/20 00:00 Mechanical Ventilator Mechanical Ventilator Mechanical Ventilator 07/25/20 00:00 92 29 94/63 (73) 100 07/24/20 23:30 91 30 89/55 (66) 100 07/24/20 23:20 97 27 55 07/24/20 23:00 93 26 94/60 (71) 100 07/24/20 23:00 26 94/60 Mechanical Ventilator 55 07/24/20 23:00 26 94/60 Mechanical Ventilator 55 07/24/20 22:30 93 26 92/65 (74) 100 07/24/20 22:00 28 98/61 Mechanical Ventilator 55 07/24/20 22:00 28 98/61 Mechanical Ventilator 55 07/24/20 22:00 95 28 98/61 (73) 100 07/24/20 21:30 95 28 91/61 (71) 100 07/24/20 21:29 102 24 55 07/24/20 21:00 28 94/64 Mechanical Ventilator 55 07/24/20 21:00 28 94/64 Mechanical Ventilator 55 07/24/20 21:00 94 28 94/64 (74) 100 07/24/20 20:30 93 31 99/64 (76) 100 07/24/20 20:00 98.7 99 25 94/63 (73) 100 07/24/20 20:00 99 07/24/20 20:00 Mechanical Ventilator Mechanical Ventilator Mechanical Ventilator 07/24/20 20:00 25 94/63 Mechanical Ventilator 55 07/24/20 20:00 25 94/63 Mechanical Ventilator 55 07/24/20 20:00 55 07/24/20 19:00 94 27 55 07/24/20 19:00 102 30 96/68 (77) 100 07/24/20 19:00 27 96/68 Mechanical Ventilator 55 07/24/20 19:00 26 96/68 Mechanical Ventilator 55 07/24/20 18:45 102 30 100/68 (79) 100 07/24/20 18:30 104 31 96/69 (78) 100 07/24/20 18:15 108 43 109/69 (82) 98 07/24/20 18:00 27 105/71 Mechanical Ventilator 55 07/24/20 18:00 26 105/71 Mechanical Ventilator 55 07/24/20 18:00 103 30 105/71 (82) 99 07/24/20 17:54 26 109/73 Mechanical Ventilator 55 07/24/20 17:45 101 23 112/69 (83) 100 07/24/20 17:30 99 25 104/72 (83) 100 07/24/20 17:15 99 26 109/69 (82) 100 07/24/20 17:00 28 108/71 Mechanical Ventilator 55 07/24/20 17:00 28 108/71 Mechanical Ventilator 65 07/24/20 17:00 104 28 108/71 (83) 99 07/24/20 16:45 98 26 110/68 (82) 100 07/24/20 16:30 100 22 105/70 (82) 100 07/24/20 16:15 100 9 105/70 (82) 100 07/24/20 16:00 100.2 103 24 104/74 (84) 100 07/24/20 16:00 Mechanical Ventilator Mechanical Ventilator Mechanical Ventilator 07/24/20 16:00 26 104/74 Mechanical Ventilator 55 07/24/20 16:00 26 104/74 Mechanical Ventilator 65 07/24/20 16:00 55 07/24/20 16:00 102 07/24/20 15:45 104 18 104/67 (79) 100 07/24/20 15:30 103 11 110/73 (85) 100 07/24/20 15:15 112 37 127/79 (95) 100 07/24/20 15:00 104 28 130/70 (90) 100 07/24/20 15:00 31 131/88 Mechanical Ventilator 55 07/24/20 15:00 31 131/88 Mechanical Ventilator 55 07/24/20 14:45 119 33 120/105 (110) 88 07/24/20 14:40 117 38 55 07/24/20 14:30 110 39 119/70 (86) 97 07/24/20 14:15 115 36 106/79 (88) 92 07/24/20 14:00 113 30 118/83 (95) 96 07/24/20 14:00 31 118/83 Mechanical Ventilator 45 07/24/20 14:00 31 118/83 Mechanical Ventilator 45 07/24/20 13:30 113 41 131/70 (90) 92 07/24/20 13:15 109 31 123/76 (92) 95 07/24/20 13:00 98 14 141/87 (105) 100 07/24/20 13:00 31 141/87 Mechanical Ventilator 45 07/24/20 13:00 31 141/87 Mechanical Ventilator 45 07/24/20 12:45 96 18 133/93 (106) 99 07/24/20 12:30 108 31 121/80 (94) 97 07/24/20 12:15 97 31 115/73 (87) 99 07/24/20 12:07 104/69 07/24/20 12:00 98.9 105 40 116/71 (86) 87 07/24/20 12:00 99 07/24/20 12:00 Mechanical Ventilator Mechanical Ventilator Mechanical Ventilator 07/24/20 12:00 28 116/71 Mechanical Ventilator 45 07/24/20 12:00 28 116/71 Mechanical Ventilator 45 07/24/20 12:00 45 07/24/20 11:54 107 20 84 07/24/20 11:53 104 20 87 07/24/20 11:45 105 29 105/76 (86) 96 07/24/20 11:40 98.9 100 35 112/73 (86) 95 07/24/20 11:30 101 37 105/78 (87) 97 07/24/20 11:25 99.0 102 35 110/70 (83) 96 07/24/20 11:15 101 7 110/70 (83) 97 07/24/20 11:00 28 111/64 Mechanical Ventilator 45 07/24/20 11:00 28 111/64 Mechanical Ventilator 45 07/24/20 11:00 99.0 105 33 111/64 (80) 96 07/24/20 10:45 103 30 101/62 (75) 95 07/24/20 10:34 102 27 45 07/24/20 10:30 106 30 97/65 (76) 90 07/24/20 10:15 106 34 106/68 (81) 88 07/24/20 10:06 100.0 07/24/20 10:00 107 31 98/59 (72) 88 07/24/20 10:00 27 98/59 Mechanical Ventilator 45 07/24/20 10:00 27 98/59 Mechanical Ventilator 45 07/24/20 09:45 106 32 95/57 (70) 90 07/24/20 09:30 100.0 110 36 98/54 (69) 91 07/24/20 09:15 108 33 102/54 (70) 92 07/24/20 09:00 101 32 107/65 (79) 93 07/24/20 09:00 26 107/65 Mechanical Ventilator 40 07/24/20 09:00 26 107/65 Mechanical Ventilator 40 07/24/20 08:45 103 34 106/67 (80) 94 07/24/20 08:30 101 34 99/61 (74) 97 07/24/20 08:15 103 35 103/64 (77) 95 07/24/20 08:00 Mechanical Ventilator Mechanical Ventilator Mechanical Ventilator 07/24/20 08:00 102 07/24/20 08:00 40 07/24/20 08:00 100.6 100 27 99/64 (76) 96 07/24/20 08:00 26 99/64 Mechanical Ventilator 40 07/24/20 08:00 26 99/64 Mechanical Ventilator 40 07/24/20 07:45 105 36 116/79 (91) 95 07/24/20 07:30 109 42 121/77 (92) 84 07/24/20 07:19 101 31 40 07/24/20 07:15 99 34 106/67 (80) 91 07/24/20 07:00 101 33 104/63 (77) 91 07/24/20 07:00 16 104/63 Mechanical Ventilator 40 07/24/20 07:00 18 104/63 Mechanical Ventilator 40 07/24/20 06:31 96 18 07/24/20 06:30 97 32 105/62 (76) 92 07/24/20 06:15 104 50 115/59 (77) 90 07/24/20 06:00 99 30 105/65 (78) 99 07/24/20 06:00 18 102/60 Mechanical Ventilator 40 07/24/20 06:00 18 102/60 Mechanical Ventilator 40 07/24/20 05:30 98 32 104/64 (77) 100 07/24/20 05:23 18 99/66 Mechanical Ventilator 50 07/24/20 05:00 98 27 108/64 (79) 100 07/24/20 05:00 18 104/64 Mechanical Ventilator 50 07/24/20 05:00 18 104/64 Mechanical Ventilator 50 07/24/20 04:30 98 27 96/60 (72) 100 07/24/20 04:00 97 07/24/20 04:00 99.4 97 27 101/61 (74) 100 07/24/20 04:00 Mechanical Ventilator Mechanical Ventilator Mechanical Ventilator 07/24/20 04:00 18 96/60 Mechanical Ventilator 50 07/24/20 04:00 18 96/60 Mechanical Ventilator 50 07/24/20 04:00 50 07/24/20 03:40 98 33 50 07/24/20 03:30 103 36 112/74 (87) 98 07/24/20 03:00 18 105/63 Mechanical Ventilator 50 07/24/20 03:00 18 105/63 Mechanical Ventilator 50 07/24/20 03:00 95 31 96/61 (73) 99 07/24/20 02:30 100 32 108/67 (81) 96 07/24/20 02:00 96 30 102/60 (74) 96 07/24/20 02:00 18 102/60 Mechanical Ventilator 50 07/24/20 02:00 18 102/60 Mechanical Ventilator 50 07/24/20 01:30 95 26 98/58 (71) 99 07/24/20 01:00 96 25 100/59 (73) 100 07/24/20 01:00 18 99/58 Mechanical Ventilator 55 07/24/20 01:00 18 95/58 Mechanical Ventilator 50 07/24/20 00:30 98 27 95/58 (70) 100 07/24/20 00:00 55 07/24/20 00:00 Mechanical Ventilator Mechanical Ventilator Mechanical Ventilator 07/24/20 00:00 99.1 98 28 103/61 (75) 100 07/24/20 00:00 18 100/58 Mechanical Ventilator 55 07/24/20 00:00 18 100/58 Mechanical Ventilator 55 07/24/20 00:00 96 07/23/20 23:30 107 37 113/72 (86) 100 07/23/20 23:24 90 22 55 07/23/20 23:04 18 93/60 Mechanical Ventilator 55 07/23/20 23:00 18 93/60 Mechanical Ventilator 55 07/23/20 23:00 18 93/60 Mechanical Ventilator 55 07/23/20 23:00 94 27 93/60 (71) 94 07/23/20 22:30 94 27 86/54 (65) 93 07/23/20 22:00 99.2 90 28 95/66 (76) 95 07/23/20 22:00 18 95/59 Mechanical Ventilator 50 07/23/20 22:00 18 95/57 Mechanical Ventilator 50 07/23/20 21:30 98 27 98/63 (75) 98 07/23/20 21:00 18 103/67 Mechanical Ventilator 50 07/23/20 21:00 18 103/67 Mechanical Ventilator 50 07/23/20 21:00 96 24 100/60 (73) 99 07/23/20 20:30 100 27 99/70 (80) 99 07/23/20 20:00 Mechanical Ventilator Mechanical Ventilator Mechanical Ventilator 07/23/20 20:00 92 07/23/20 20:00 50 07/23/20 20:00 95 27 97/65 (76) 100 07/23/20 20:00 18 96/65 Mechanical Ventilator 50 07/23/20 20:00 18 96/65 Mechanical Ventilator 50 07/23/20 19:30 98.9 95 25 98/66 (77) 100 07/23/20 19:15 93 23 60 07/23/20 19:00 96 27 95/65 (75) 100 07/23/20 19:00 18 99/62 Mechanical Ventilator 60 07/23/20 19:00 18 99/65 Mechanical Ventilator 60 07/23/20 18:30 96 27 94/64 (74) 100 07/23/20 18:15 96 27 97/68 (78) 100 07/23/20 18:00 27 97/68 Mechanical Ventilator 60 07/23/20 18:00 27 97/68 Mechanical Ventilator 60 07/23/20 18:00 97/68 07/23/20 18:00 99 22 97/68 (78) 100 07/23/20 18:00 95 25 97/68 (78) 100 07/23/20 17:45 96 27 103/67 (79) 100 07/23/20 17:30 97 27 97/69 (78) 100 07/23/20 17:00 27 97/69 Mechanical Ventilator 60 07/23/20 17:00 27 97/69 Mechanical Ventilator 60 07/23/20 17:00 97/69 07/23/20 17:00 98 26 85/72 (76) 99 07/23/20 16:15 103 29 98/69 (79) 99 07/23/20 16:00 100 07/23/20 16:00 60 07/23/20 16:00 99.1 102 28 98/69 (79) 99 07/23/20 16:00 31 98/69 Mechanical Ventilator 60 07/23/20 16:00 31 98/69 Mechanical Ventilator 60 07/23/20 16:00 98/69 07/23/20 16:00 Mechanical Ventilator Mechanical Ventilator Mechanical Ventilator 07/23/20 15:45 106 35 113/75 (88) 97 07/23/20 15:30 101 30 103/61 (75) 98 07/23/20 15:20 63 25 60 07/23/20 15:15 98 17 104/66 (79) 98 07/23/20 15:00 100 32 103/61 (75) 100 07/23/20 15:00 28 103/61 Mechanical Ventilator 60 07/23/20 15:00 38 101/62 Mechanical Ventilator 60 07/23/20 15:00 103/61 07/23/20 14:00 97 31 91/64 (73) 99 07/23/20 14:00 30 91/64 Mechanical Ventilator 60 07/23/20 14:00 31 91/64 Mechanical Ventilator 60 07/23/20 14:00 91/64 07/23/20 13:45 97 31 100/58 (72) 99 07/23/20 13:30 97 30 93/63 (73) 100 07/23/20 13:15 96 28 93/63 (73) 99 07/23/20 13:00 29 93/60 Mechanical Ventilator 60 07/23/20 13:00 29 93/60 Endotracheal Tube 60 07/23/20 13:00 93/60 07/23/20 13:00 97 15 93/60 (71) 99 07/23/20 13:00 100 07/23/20 12:45 97 18 95/60 (72) 100 07/23/20 12:30 98 23 99/57 (71) 99 07/23/20 12:15 98 35 93/58 (70) 99 07/23/20 12:00 Mechanical Ventilator Mechanical Ventilator Mechanical Ventilator 07/23/20 12:00 96 07/23/20 12:00 95 26 93/60 (71) 100 07/23/20 12:00 31 93/58 Mechanical Ventilator 60 07/23/20 12:00 28 93/58 Mechanical Ventilator 60 07/23/20 12:00 93/58 07/23/20 12:00 60 07/23/20 12:00 99.2 102 23 101/60 (74) 95 07/23/20 11:45 97 33 92/61 (71) 100 07/23/20 11:30 97 24 93/57 (69) 99 07/23/20 11:15 97 31 100/58 (72) 99 07/23/20 11:00 26 91/60 Mechanical Ventilator 60 07/23/20 11:00 29 91/60 Mechanical Ventilator 60 07/23/20 11:00 91/60 07/23/20 11:00 96 24 91/60 (70) 100 07/23/20 10:59 98 27 60 07/23/20 10:45 102 29 96/63 (74) 98 07/23/20 10:30 104 25 97/67 (77) 96 07/23/20 10:15 96 24 88/56 (67) 98 07/23/20 10:00 29 88/53 Mechanical Ventilator 60 07/23/20 10:00 27 88/53 Mechanical Ventilator 60 07/23/20 10:00 88/53 07/23/20 10:00 97 27 88/53 (65) 97 07/23/20 09:45 95 28 81/48 (59) 98 07/23/20 09:30 97 24 96/54 (68) 97 07/23/20 09:16 94 26 60 07/23/20 09:15 93 27 101/66 (78) 98 07/23/20 09:00 92 31 96/60 (72) 100 07/23/20 09:00 29 96/60 Mechanical Ventilator 60 07/23/20 09:00 29 96/60 Mechanical Ventilator 60 07/23/20 09:00 96/60 07/23/20 08:45 90 15 98/65 (76) 100 07/23/20 08:44 91 25 70 07/23/20 08:30 89 27 102/59 (73) 100 07/23/20 08:15 88 21 98/64 (75) 100 07/23/20 08:00 Mechanical Ventilator Mechanical Ventilator Mechanical Ventilator 07/23/20 08:00 99.0 89 29 99/59 (72) 100 07/23/20 08:00 28 99/59 Mechanical Ventilator 100 07/23/20 08:00 26 98/64 Mechanical Ventilator 100 07/23/20 08:00 98/64 07/23/20 08:00 100 07/23/20 08:00 93 07/23/20 07:30 91 23 100 07/23/20 07:30 89 24 91/58 (69) 100 07/23/20 07:15 90 26 95/60 (72) 100 07/23/20 07:00 91 26 91/58 (69) 100 07/23/20 07:00 24 91/58 Mechanical Ventilator 100 07/23/20 07:00 24 95/60 Mechanical Ventilator 100 07/23/20 07:00 91/58 Intake and Output 07/24/20 07/25/20 19:00 07:00 Intake Total 1080 ml 722 ml Output Total 1140 ml 440 ml Balance -60 ml 282 ml IV Total 1080 ml 722 ml Output Urine Total 1035 ml 440 ml Chest Tube Drainage Total 105 ml Labs Test 07/23/20 03:40 07/23/20 10:35 07/24/20 04:00 07/25/20 04:06 White Blood Count 15.7 K/UL (4.8-10.8) 11.1 K/UL (4.8-10.8) 11.1 K/UL (4.8-10.8) Red Blood Count 3.07 M/UL (4.20-5.40) 2.49 M/UL (4.20-5.40) 2.80 M/UL (4.20-5.40) Hemoglobin 8.4 G/DL (12.0-16.0) 7.1 G/DL (12.0-16.0) 7.9 G/DL (12.0-16.0) Hematocrit 28.0 % (37.0-47.0) 22.8 % (37.0-47.0) 25.7 % (37.0-47.0) Mean Corpuscular Volume 91 FL (80-99) 91 FL (80-99) 92 FL (80-99) Mean Corpuscular Hemoglobin 27.5 PG (27.0-31.0) 28.4 PG (27.0-31.0) 28.4 PG (27.0-31.0) Mean Corpuscular Hemoglobin Concent 30.1 G/DL (32.0-36.0) 31.2 G/DL (32.0-36.0) 30.9 G/DL (32.0-36.0) Red Cell Distribution Width 17.1 % (11.6-14.8) 16.7 % (11.6-14.8) 16.9 % (11.6-14.8) Platelet Count 358 K/UL (150-450) 248 K/UL (150-450) 258 K/UL (150-450) Mean Platelet Volume 7.7 FL (6.5-10.1) 7.4 FL (6.5-10.1) 7.4 FL (6.5-10.1) Neutrophils (%) (Auto) 61.4 % (45.0-75.0) % (45.0-75.0) % (45.0-75.0) Lymphocytes (%) (Auto) 18.7 % (20.0-45.0) % (20.0-45.0) % (20.0-45.0) Monocytes (%) (Auto) 10.1 % (1.0-10.0) % (1.0-10.0) % (1.0-10.0) Eosinophils (%) (Auto) 9.2 % (0.0-3.0) % (0.0-3.0) % (0.0-3.0) Basophils (%) (Auto) 0.6 % (0.0-2.0) % (0.0-2.0) % (0.0-2.0) Sodium Level 138 MMOL/L (136-145) 138 MMOL/L (136-145) 138 MMOL/L (136-145) Potassium Level 3.8 MMOL/L (3.5-5.1) 4.0 MMOL/L (3.5-5.1) 3.8 MMOL/L (3.5-5.1) Chloride Level 98 MMOL/L (98-107) 100 MMOL/L (98-107) 102 MMOL/L (98-107) Carbon Dioxide Level 34 MMOL/L (21-32) 34 MMOL/L (21-32) 34 MMOL/L (21-32) Anion Gap 6 mmol/L (5-15) 4 mmol/L (5-15) 3 mmol/L (5-15) Blood Urea Nitrogen 20 mg/dL (7-18) 16 mg/dL (7-18) 10 mg/dL (7-18) Creatinine 0.7 MG/DL (0.55-1.30) 0.6 MG/DL (0.55-1.30) 0.5 MG/DL (0.55-1.30) Estimat Glomerular Filtration Rate > 60 mL/min (>60) > 60 mL/min (>60) > 60 mL/min (>60) Glucose Level 106 MG/DL (74-106) 96 MG/DL (74-106) 106 MG/DL (74-106) Uric Acid 6.3 MG/DL (2.6-7.2) Calcium Level 10.1 MG/DL (8.5-10.1) 9.4 MG/DL (8.5-10.1) 8.6 MG/DL (8.5-10.1) Phosphorus Level 3.0 MG/DL (2.5-4.9) 2.3 MG/DL (2.5-4.9) Magnesium Level 1.8 MG/DL (1.8-2.4) 1.6 MG/DL (1.8-2.4) Total Bilirubin 0.3 MG/DL (0.2-1.0) 0.2 MG/DL (0.2-1.0) 0.4 MG/DL (0.2-1.0) Aspartate Amino Transf (AST/SGOT) 54 U/L (15-37) 39 U/L (15-37) 27 U/L (15-37) Alanine Aminotransferase (ALT/SGPT) 37 U/L (12-78) 27 U/L (12-78) 22 U/L (12-78) Alkaline Phosphatase 63 U/L (46-116) 56 U/L (46-116) 63 U/L (46-116) Total Protein 7.1 G/DL (6.4-8.2) 6.3 G/DL (6.4-8.2) 6.2 G/DL (6.4-8.2) Albumin 2.6 G/DL (3.4-5.0) 2.3 G/DL (3.4-5.0) 2.2 G/DL (3.4-5.0) Globulin 4.5 g/dL 4.0 g/dL 4.0 g/dL Albumin/Globulin Ratio 0.6 (1.0-2.7) 0.6 (1.0-2.7) 0.6 (1.0-2.7) Arterial Blood pH 7.368 (7.350-7.450) Arterial Blood Partial Pressure CO2 59.2 mmHg (35.0-45.0) Arterial Blood Partial Pressure O2 71.6 mmHg (75.0-100.0) Arterial Blood HCO3 33.3 mmol/L (22.0-26.0) Arterial Blood Oxygen Saturation 92.8 % (95-100) Arterial Blood Base Excess 7.0 (-2-2) Jeremiah Test Positive Prothrombin Time 12.4 SEC (9.30-11.50) Prothromb Time International Ratio 1.1 (0.9-1.1) Activated Partial Thromboplast Time 34 SEC (23-33) C-Reactive Protein, Quantitative 8.2 mg/dL (0.00-0.90) Pro-B-Type Natriuretic Peptide 583 pg/mL (0-125) Height (Feet): 5 Height (Inches): 5.00 Weight (Pounds): 223 Objective GeNL: nv HEENT: ngt++ Pulm: vent/trach++ CV: rrr Abd: soft, nt, nd Ext: no cce Myron Condon MD Jul 25, 2020 06:45
--- NOTE | 2020-07-25 07:09 | NUR ---
HAND OFF: Report given to RAKEL Galaviz. Endorsed POC.
--- NOTE | 2020-07-25 08:15 | NUR ---
RADIOLOGY DEPT., CHEST X-RAY [facility]
[2020-07-25] MEDS: Enoxaparin 120 mg inj SUBQ SCH ×2 (09:00→20:39)
--- NOTE | 2020-07-25 09:40 | Infectious Diseases Prog Note ---
Assessment/Plan Assessment/Plan A 1. COVID19 pneumonia 2. Hypoxic respiratory failure 3. Morbid obesity 4. DM type with hyperglycemia 5. Thrombocytopenia 6. leukocytosis improving 7. Gram negative pneumonia 8. Anemia 9. VDRF 10. Cardiac arrest 11. UTI 12. Right pneumothorax 13 Gastrostomy status P 1. Finished remdesivir course 2. Finished steroid course 3.Continue Meropenem Subjective ROS Limited/Unobtainable: Yes Constitutional: Reports: fever, other - low grade Allergies: Coded Allergies: No Known Allergies (Unverified , 05/28/20) Objective Last 24 Hour Vital Signs Date Time Temp Pulse Resp B/P (MAP) Pulse Ox O2 Delivery O2 Flow Rate FiO2 07/25/20 09:15 96 30 90/56 (67) 100 07/25/20 09:00 96 31 93/54 (67) 100 07/25/20 08:45 97 34 93/58 (70) 100 07/25/20 08:30 97 38 94/55 (68) 100 07/25/20 08:15 98 6 95/56 (69) 100 07/25/20 08:00 55 07/25/20 08:00 100.0 100 23 95/60 (72) 100 07/25/20 08:00 98 07/25/20 07:45 97 27 97/57 (70) 100 07/25/20 07:34 97 25 55 07/25/20 07:30 98 27 95/59 (71) 100 07/25/20 07:15 97 26 96/56 (69) 100 07/25/20 07:00 24 101/63 Mechanical Ventilator 55 07/25/20 07:00 24 101/63 Mechanical Ventilator 55 07/25/20 07:00 99 24 101/63 (76) 100 07/25/20 06:30 99 24 98/61 (73) 100 07/25/20 06:30 96 24 07/25/20 06:15 22 104/70 Mechanical Ventilator 55 07/25/20 06:15 105 22 104/70 (81) 100 07/25/20 06:00 30 102/67 55 07/25/20 06:00 30 102/67 Mechanical Ventilator 55 07/25/20 06:00 99 30 102/67 (79) 100 07/25/20 05:45 94 25 97/56 (70) 100 07/25/20 05:45 25 97/56 Mechanical Ventilator 55 07/25/20 05:30 31 96/57 Mechanical Ventilator 55 07/25/20 05:30 95 31 96/57 (70) 100 07/25/20 05:15 96 24 97/57 (70) 100 07/25/20 05:15 14 97/57 Mechanical Ventilator 55 07/25/20 05:00 95 28 96/58 (71) 100 07/25/20 05:00 30 96/58 Mechanical Ventilator 55 07/25/20 05:00 30 96/58 Mechanical Ventilator 55 07/25/20 04:55 98 27 55 07/25/20 04:30 95 28 89/53 (65) 100 07/25/20 04:00 97 07/25/20 04:00 55 07/25/20 04:00 32 105/73 Mechanical Ventilator 55 07/25/20 04:00 32 105/73 Mechanical Ventilator 55 07/25/20 04:00 97 32 105/73 (84) 100 07/25/20 04:00 Mechanical Ventilator Mechanical Ventilator Mechanical Ventilator 07/25/20 03:30 97 31 106/68 (81) 100 07/25/20 03:20 97 29 55 07/25/20 03:00 28 94/58 Mechanical Ventilator 55 07/25/20 03:00 28 94/58 Mechanical Ventilator 55 07/25/20 03:00 92 28 94/58 (70) 100 07/25/20 02:30 94 27 103/66 (78) 100 07/25/20 02:00 28 101/64 Mechanical Ventilator 55 07/25/20 02:00 28 101/64 Mechanical Ventilator 55 07/25/20 02:00 93 28 101/64 (76) 100 07/25/20 01:30 93 31 99/67 (78) 100 07/25/20 01:00 27 98/66 Mechanical Ventilator 55 07/25/20 01:00 27 98/66 Mechanical Ventilator 55 07/25/20 01:00 98.5 93 27 98/66 (77) 100 07/25/20 00:30 92 28 93/63 (73) 100 07/25/20 00:00 29 94/63 Mechanical Ventilator 55 07/25/20 00:00 29 94/63 Mechanical Ventilator 55 07/25/20 00:00 55 07/25/20 00:00 92 07/25/20 00:00 Mechanical Ventilator Mechanical Ventilator Mechanical Ventilator 07/25/20 00:00 92 29 94/63 (73) 100 07/24/20 23:30 91 30 89/55 (66) 100 07/24/20 23:20 97 27 55 07/24/20 23:00 93 26 94/60 (71) 100 07/24/20 23:00 26 94/60 Mechanical Ventilator 55 07/24/20 23:00 26 94/60 Mechanical Ventilator 55 07/24/20 22:30 93 26 92/65 (74) 100 07/24/20 22:00 28 98/61 Mechanical Ventilator 55 07/24/20 22:00 28 98/61 Mechanical Ventilator 55 07/24/20 22:00 95 28 98/61 (73) 100 07/24/20 21:30 95 28 91/61 (71) 100 07/24/20 21:29 102 24 55 07/24/20 21:00 28 94/64 Mechanical Ventilator 55 07/24/20 21:00 28 94/64 Mechanical Ventilator 55 07/24/20 21:00 94 28 94/64 (74) 100 07/24/20 20:30 93 31 99/64 (76) 100 07/24/20 20:00 98.7 99 25 94/63 (73) 100 07/24/20 20:00 99 07/24/20 20:00 Mechanical Ventilator Mechanical Ventilator Mechanical Ventilator 07/24/20 20:00 25 94/63 Mechanical Ventilator 55 07/24/20 20:00 25 94/63 Mechanical Ventilator 55 07/24/20 20:00 55 07/24/20 19:00 94 27 55 07/24/20 19:00 102 30 96/68 (77) 100 07/24/20 19:00 27 96/68 Mechanical Ventilator 55 07/24/20 19:00 26 96/68 Mechanical Ventilator 55 07/24/20 18:45 102 30 100/68 (79) 100 07/24/20 18:30 104 31 96/69 (78) 100 07/24/20 18:15 108 43 109/69 (82) 98 07/24/20 18:00 27 105/71 Mechanical Ventilator 55 07/24/20 18:00 26 105/71 Mechanical Ventilator 55 07/24/20 18:00 103 30 105/71 (82) 99 07/24/20 17:54 26 109/73 Mechanical Ventilator 55 07/24/20 17:45 101 23 112/69 (83) 100 07/24/20 17:30 99 25 104/72 (83) 100 07/24/20 17:15 99 26 109/69 (82) 100 07/24/20 17:00 28 108/71 Mechanical Ventilator 55 07/24/20 17:00 28 108/71 Mechanical Ventilator 65 07/24/20 17:00 104 28 108/71 (83) 99 07/24/20 16:45 98 26 110/68 (82) 100 07/24/20 16:30 100 22 105/70 (82) 100 07/24/20 16:15 100 9 105/70 (82) 100 07/24/20 16:00 100.2 103 24 104/74 (84) 100 07/24/20 16:00 Mechanical Ventilator Mechanical Ventilator Mechanical Ventilator 07/24/20 16:00 26 104/74 Mechanical Ventilator 55 07/24/20 16:00 26 104/74 Mechanical Ventilator 65 07/24/20 16:00 55 07/24/20 16:00 102 07/24/20 15:45 104 18 104/67 (79) 100 07/24/20 15:30 103 11 110/73 (85) 100 07/24/20 15:15 112 37 127/79 (95) 100 07/24/20 15:00 104 28 130/70 (90) 100 07/24/20 15:00 31 131/88 Mechanical Ventilator 55 07/24/20 15:00 31 131/88 Mechanical Ventilator 55 07/24/20 14:45 119 33 120/105 (110) 88 07/24/20 14:40 117 38 55 07/24/20 14:30 110 39 119/70 (86) 97 07/24/20 14:15 115 36 106/79 (88) 92 07/24/20 14:00 113 30 118/83 (95) 96 07/24/20 14:00 31 118/83 Mechanical Ventilator 45 07/24/20 14:00 31 118/83 Mechanical Ventilator 45 07/24/20 13:30 113 41 131/70 (90) 92 07/24/20 13:15 109 31 123/76 (92) 95 07/24/20 13:00 98 14 141/87 (105) 100 07/24/20 13:00 31 141/87 Mechanical Ventilator 45 07/24/20 13:00 31 141/87 Mechanical Ventilator 45 07/24/20 12:45 96 18 133/93 (106) 99 07/24/20 12:30 108 31 121/80 (94) 97 07/24/20 12:15 97 31 115/73 (87) 99 07/24/20 12:07 104/69 07/24/20 12:00 98.9 105 40 116/71 (86) 87 07/24/20 12:00 99 07/24/20 12:00 Mechanical Ventilator Mechanical Ventilator Mechanical Ventilator 07/24/20 12:00 28 116/71 Mechanical Ventilator 45 07/24/20 12:00 28 116/71 Mechanical Ventilator 45 07/24/20 12:00 45 07/24/20 11:54 107 20 84 07/24/20 11:53 104 20 87 07/24/20 11:45 105 29 105/76 (86) 96 07/24/20 11:40 98.9 100 35 112/73 (86) 95 07/24/20 11:30 101 37 105/78 (87) 97 07/24/20 11:25 99.0 102 35 110/70 (83) 96 07/24/20 11:15 101 7 110/70 (83) 97 07/24/20 11:00 28 111/64 Mechanical Ventilator 45 07/24/20 11:00 28 111/64 Mechanical Ventilator 45 07/24/20 11:00 99.0 105 33 111/64 (80) 96 07/24/20 10:45 103 30 101/62 (75) 95 07/24/20 10:34 102 27 45 07/24/20 10:30 106 30 97/65 (76) 90 07/24/20 10:15 106 34 106/68 (81) 88 07/24/20 10:06 100.0 07/24/20 10:00 107 31 98/59 (72) 88 07/24/20 10:00 27 98/59 Mechanical Ventilator 45 07/24/20 10:00 27 98/59 Mechanical Ventilator 45 07/24/20 09:45 106 32 95/57 (70) 90 Height (Feet): 5 Height (Inches): 5.00 Weight (Pounds): 223 HEENT: status post trach Respiratory/Chest: rhonchi - bilaterally, other - R side chest tube Cardiovascular: normal rate, other - left arm PICC line Abdomen: soft, non tender, other - GT in place Extremities: other - generalized edema Neurologic/Psychiatric: other - sedated Laboratory Tests Test 07/25/20 04:06 White Blood Count 11.1 K/UL (4.8-10.8) H Red Blood Count 2.80 M/UL (4.20-5.40) L Hemoglobin 7.9 G/DL (12.0-16.0) L Hematocrit 25.7 % (37.0-47.0) L Mean Corpuscular Volume 92 FL (80-99) Mean Corpuscular Hemoglobin 28.4 PG (27.0-31.0) Mean Corpuscular Hemoglobin Concent 30.9 G/DL (32.0-36.0) L Red Cell Distribution Width 16.9 % (11.6-14.8) H Platelet Count 258 K/UL (150-450) Mean Platelet Volume 7.4 FL (6.5-10.1) Neutrophils (%) (Auto) % (45.0-75.0) Lymphocytes (%) (Auto) % (20.0-45.0) Monocytes (%) (Auto) % (1.0-10.0) Eosinophils (%) (Auto) % (0.0-3.0) Basophils (%) (Auto) % (0.0-2.0) Neutrophils % (Manual) Pending Lymphocytes % (Manual) Pending Platelet Estimate Pending Platelet Morphology Pending Sodium Level 138 MMOL/L (136-145) Potassium Level 3.8 MMOL/L (3.5-5.1) Chloride Level 102 MMOL/L (98-107) Carbon Dioxide Level 34 MMOL/L (21-32) H Anion Gap 3 mmol/L (5-15) L Blood Urea Nitrogen 10 mg/dL (7-18) Creatinine 0.5 MG/DL (0.55-1.30) L Estimat Glomerular Filtration Rate > 60 mL/min (>60) Glucose Level 106 MG/DL (74-106) Calcium Level 8.6 MG/DL (8.5-10.1) Total Bilirubin 0.4 MG/DL (0.2-1.0) Aspartate Amino Transf (AST/SGOT) 27 U/L (15-37) Alanine Aminotransferase (ALT/SGPT) 22 U/L (12-78) Alkaline Phosphatase 63 U/L (46-116) Total Protein 6.2 G/DL (6.4-8.2) L Albumin 2.2 G/DL (3.4-5.0) L Globulin 4.0 g/dL Albumin/Globulin Ratio 0.6 (1.0-2.7) L Current Medications Medications (Trade) Dose Ordered Sig/Zelda Route PRN Reason Start Time Stop Time Status Last Admin Dose Admin Acetaminophen (Tylenol) 650 mg Q4H PRN NG Temp >100.5 06/29/20 10:15 07/29/20 10:14 07/24/20 09:04 Acetaminophen (Tylenol) 650 mg Q6H PRN NG Mild Pain (Pain Scale 1-3) 06/29/20 10:15 07/29/20 10:14 07/22/20 11:56 Calcitonin [place] (Miacalcin) 1 sprays DAILY NASAL 07/22/20 14:00 10/20/20 13:59 07/24/20 08:49 Chlorhexidine Gluconate (Inna-Hex 2%) 1 applic DAILY@2000 TOPIC 07/20/20 20:00 10/18/20 19:59 07/24/20 20:02 Dextrose (Dextrose 50%) 25 ml Q30M PRN IV Hypoglycemia 06/05/20 10:45 09/03/20 10:44 Dextrose (Dextrose 50%) 50 ml Q30M PRN IV Hypoglycemia 06/05/20 10:45 09/03/20 10:44 Dextrose/Sodium Chloride 1,000 ml @ 75 mls/hr [id number] IV 07/20/20 12:30 08/19/20 12:29 07/24/20 22:00 Enoxaparin Sodium (Lovenox) 110 mg EVERY 12 HOURS SUBQ 07/17/20 21:00 10/15/20 20:59 07/23/20 20:19 Fentanyl Citrate 250 ml @ 1 mls/hr Q24H IV 07/25/20 05:00 07/27/20 04:59 07/25/20 05:00 Guaifenesin/ Codeine Phosphate (Robitussin with codeine) 5 ml Q6H PRN NG For Cough 07/14/20 14:15 08/13/20 14:14 07/18/20 21:44 Heparin Sodium/ Sodium Chloride (Heparin 1000 units/500ml Premix) 1,000 unit ONCE PRN INJ radiology use 07/24/20 12:30 07/26/20 12:29 Lansoprazole (Prevacid) 30 mg DAILY GT 07/18/20 09:00 08/09/20 08:59 07/24/20 08:48 Lidocaine HCl (Xylocaine 1% 30ml) 30 ml ONCE PRN INJ radiology use 07/24/20 12:30 07/26/20 12:29 Meropenem 1 gm/ Sodium Chloride 55 ml @ 110 mls/hr Q8H IVPB 07/22/20 12:00 07/27/20 11:59 07/25/20 04:00 Midazolam HCl 200 ml @ 0 mls/hr Q24H PRN IV sedation 07/22/20 14:06 07/29/20 14:05 07/24/20 17:54 Midodrine (Pro-Amatine) 10 mg Q8HR GT 06/30/20 14:00 09/12/20 13:59 07/24/20 05:22 Norepinephrine Bitartrate 8 mg/ Dextrose 250 ml @ 0 mls/hr Q24H IV 07/22/20 13:00 07/25/20 12:59 07/23/20 04:08 Quetiapine Fumarate (SEROqueL) 50 mg Q12HR GT 07/16/20 13:30 08/30/20 13:29 07/24/20 08:48 Colt Arana MD Jul 25, 2020 09:40
[2020-07-25] MEDS: Versed 100mg/NS 200ml 200 ML IV PRN (10:00)
--- NOTE | 2020-07-25 10:11 | NUR ---
RD ASSESSMENT & RECOMMENDATIONS SEE CARE ACTIVITY FOR COMPLETE ASSESSMENT DAILY ESTIMATED NEEDS: Needs based on Critical care, obesity 11-14kcal/kg actual body wt (140kg) kcals/kg 5739-5868 total kcals 1.5-2.0g prot/kg IBW (64.5kg) g protein/kg 96-129 g total protein 25-30ml/kg abw (83kg) mL/kg 2513-4120 total fluid mLs NUTRITION DIAGNOSIS: Swallowing difficulty R/T respiratory failure as evidenced by pt now s/p trach placement (07/04), NGT to LIS now dc'ed, s/p PEG placement, remains NPO. CURRENT TF:NPO- s/p PEG placement 07/24 ENTERAL NUTRITION RECOMMENDATIONS: Glucerna 1.2 @ 55ml/hr x 24 hrs + Prosource 1pkt BID to provide 1320ml, 1584kcal, 79g+22g prot, 1063ml free water * As medically appropriate, initiate Glucerna 1.2 @ 25ml/hr x 6hrs * Advance 10ml q 4-6 hrs as tolerated to goal rate. * Add Prosource 1pkt BID (additional 22g prot) to meet protein needs * HOB over 30 degrees/ water flush per MD ADDITIONAL RECOMMENDATIONS: * Calibrated bedscale wt * Monitor Propofol rate, need for TF adjustment-> now off * Monitor BGs closely : now improved, on NISS only * Monitor NPO status- TF held since 07/20, now s/p PEG placement NGT to LIS dc'ed, initiate GT feeds in a timely manner if medically appropriate * Monitor hemodynamic stability: NE held at this time
--- NOTE | 2020-07-25 10:37 | Surgery Progress Note ---
Surgery Progress Note Subjective Procedure Performed right tube chest tube insertion Additional Comments no air leak no n/v improved weaning chest tube okay ion water seal cxr noted dec free air likely leak from massive ptx cont current tx plan will plan d/c chest tube soon Objective Last 24 Hour Vital Signs Date Time Temp Pulse Resp B/P (MAP) Pulse Ox O2 Delivery O2 Flow Rate FiO2 07/25/20 10:00 26 99/60 Mechanical Ventilator 55 07/25/20 10:00 96 23 93/60 (71) 100 07/25/20 09:15 96 30 90/56 (67) 100 07/25/20 09:00 29 93/54 Mechanical Ventilator 55 07/25/20 09:00 29 93/54 Mechanical Ventilator 55 07/25/20 09:00 96 31 93/54 (67) 100 07/25/20 08:45 97 34 93/58 (70) 100 07/25/20 08:30 97 38 94/55 (68) 100 07/25/20 08:15 98 6 95/56 (69) 100 07/25/20 08:00 55 07/25/20 08:00 100.0 100 23 95/60 (72) 100 07/25/20 08:00 98 07/25/20 08:00 22 95/60 Mechanical Ventilator 55 07/25/20 08:00 26 95/60 Mechanical Ventilator 55 07/25/20 07:45 97 27 97/57 (70) 100 07/25/20 07:34 97 25 55 07/25/20 07:30 98 27 95/59 (71) 100 07/25/20 07:15 97 26 96/56 (69) 100 07/25/20 07:00 24 101/63 Mechanical Ventilator 55 07/25/20 07:00 24 101/63 Mechanical Ventilator 55 07/25/20 07:00 99 24 101/63 (76) 100 07/25/20 06:30 99 24 98/61 (73) 100 07/25/20 06:30 96 24 07/25/20 06:15 22 104/70 Mechanical Ventilator 55 07/25/20 06:15 105 22 104/70 (81) 100 07/25/20 06:00 30 102/67 55 07/25/20 06:00 30 102/67 Mechanical Ventilator 55 07/25/20 06:00 99 30 102/67 (79) 100 07/25/20 05:45 94 25 97/56 (70) 100 07/25/20 05:45 25 97/56 Mechanical Ventilator 55 07/25/20 05:30 31 96/57 Mechanical Ventilator 55 07/25/20 05:30 95 31 96/57 (70) 100 07/25/20 05:15 96 24 97/57 (70) 100 07/25/20 05:15 14 97/57 Mechanical Ventilator 55 07/25/20 05:00 95 28 96/58 (71) 100 07/25/20 05:00 30 96/58 Mechanical Ventilator 55 07/25/20 05:00 30 96/58 Mechanical Ventilator 55 07/25/20 04:55 98 27 55 07/25/20 04:30 95 28 89/53 (65) 100 07/25/20 04:00 97 07/25/20 04:00 55 07/25/20 04:00 32 105/73 Mechanical Ventilator 55 07/25/20 04:00 32 105/73 Mechanical Ventilator 55 07/25/20 04:00 97 32 105/73 (84) 100 07/25/20 04:00 Mechanical Ventilator Mechanical Ventilator Mechanical Ventilator 07/25/20 03:30 97 31 106/68 (81) 100 07/25/20 03:20 97 29 55 07/25/20 03:00 28 94/58 Mechanical Ventilator 55 07/25/20 03:00 28 94/58 Mechanical Ventilator 55 07/25/20 03:00 92 28 94/58 (70) 100 07/25/20 02:30 94 27 103/66 (78) 100 07/25/20 02:00 28 101/64 Mechanical Ventilator 55 07/25/20 02:00 28 101/64 Mechanical Ventilator 55 07/25/20 02:00 93 28 101/64 (76) 100 07/25/20 01:30 93 31 99/67 (78) 100 07/25/20 01:00 27 98/66 Mechanical Ventilator 55 07/25/20 01:00 27 98/66 Mechanical Ventilator 55 07/25/20 01:00 98.5 93 27 98/66 (77) 100 07/25/20 00:30 92 28 93/63 (73) 100 07/25/20 00:00 29 94/63 Mechanical Ventilator 55 07/25/20 00:00 29 94/63 Mechanical Ventilator 55 07/25/20 00:00 55 07/25/20 00:00 92 07/25/20 00:00 Mechanical Ventilator Mechanical Ventilator Mechanical Ventilator 07/25/20 00:00 92 29 94/63 (73) 100 07/24/20 23:30 91 30 89/55 (66) 100 07/24/20 23:20 97 27 55 07/24/20 23:00 93 26 94/60 (71) 100 07/24/20 23:00 26 94/60 Mechanical Ventilator 55 07/24/20 23:00 26 94/60 Mechanical Ventilator 55 07/24/20 22:30 93 26 92/65 (74) 100 07/24/20 22:00 28 98/61 Mechanical Ventilator 55 07/24/20 22:00 28 98/61 Mechanical Ventilator 55 07/24/20 22:00 95 28 98/61 (73) 100 07/24/20 21:30 95 28 91/61 (71) 100 07/24/20 21:29 102 24 55 07/24/20 21:00 28 94/64 Mechanical Ventilator 55 07/24/20 21:00 28 94/64 Mechanical Ventilator 55 07/24/20 21:00 94 28 94/64 (74) 100 07/24/20 20:30 93 31 99/64 (76) 100 07/24/20 20:00 98.7 99 25 94/63 (73) 100 07/24/20 20:00 99 07/24/20 20:00 Mechanical Ventilator Mechanical Ventilator Mechanical Ventilator 07/24/20 20:00 25 94/63 Mechanical Ventilator 55 07/24/20 20:00 25 94/63 Mechanical Ventilator 55 07/24/20 20:00 55 07/24/20 19:00 94 27 55 07/24/20 19:00 102 30 96/68 (77) 100 07/24/20 19:00 27 96/68 Mechanical Ventilator 55 07/24/20 19:00 26 96/68 Mechanical Ventilator 55 07/24/20 18:45 102 30 100/68 (79) 100 07/24/20 18:30 104 31 96/69 (78) 100 07/24/20 18:15 108 43 109/69 (82) 98 07/24/20 18:00 27 105/71 Mechanical Ventilator 55 07/24/20 18:00 26 105/71 Mechanical Ventilator 55 07/24/20 18:00 103 30 105/71 (82) 99 07/24/20 17:54 26 109/73 Mechanical Ventilator 55 07/24/20 17:45 101 23 112/69 (83) 100 07/24/20 17:30 99 25 104/72 (83) 100 07/24/20 17:15 99 26 109/69 (82) 100 07/24/20 17:00 28 108/71 Mechanical Ventilator 55 07/24/20 17:00 28 108/71 Mechanical Ventilator 65 07/24/20 17:00 104 28 108/71 (83) 99 07/24/20 16:45 98 26 110/68 (82) 100 07/24/20 16:30 100 22 105/70 (82) 100 07/24/20 16:15 100 9 105/70 (82) 100 07/24/20 16:00 100.2 103 24 104/74 (84) 100 07/24/20 16:00 Mechanical Ventilator Mechanical Ventilator Mechanical Ventilator 07/24/20 16:00 26 104/74 Mechanical Ventilator 55 07/24/20 16:00 26 104/74 Mechanical Ventilator 65 07/24/20 16:00 55 07/24/20 16:00 102 07/24/20 15:45 104 18 104/67 (79) 100 07/24/20 15:30 103 11 110/73 (85) 100 07/24/20 15:15 112 37 127/79 (95) 100 07/24/20 15:00 104 28 130/70 (90) 100 07/24/20 15:00 31 131/88 Mechanical Ventilator 55 07/24/20 15:00 31 131/88 Mechanical Ventilator 55 07/24/20 14:45 119 33 120/105 (110) 88 07/24/20 14:40 117 38 55 07/24/20 14:30 110 39 119/70 (86) 97 07/24/20 14:15 115 36 106/79 (88) 92 07/24/20 14:00 113 30 118/83 (95) 96 07/24/20 14:00 31 118/83 Mechanical Ventilator 45 07/24/20 14:00 31 118/83 Mechanical Ventilator 45 07/24/20 13:30 113 41 131/70 (90) 92 07/24/20 13:15 109 31 123/76 (92) 95 07/24/20 13:00 98 14 141/87 (105) 100 07/24/20 13:00 31 141/87 Mechanical Ventilator 45 07/24/20 13:00 31 141/87 Mechanical Ventilator 45 07/24/20 12:45 96 18 133/93 (106) 99 07/24/20 12:30 108 31 121/80 (94) 97 07/24/20 12:15 97 31 115/73 (87) 99 07/24/20 12:07 104/69 07/24/20 12:00 98.9 105 40 116/71 (86) 87 07/24/20 12:00 99 07/24/20 12:00 Mechanical Ventilator Mechanical Ventilator Mechanical Ventilator 07/24/20 12:00 28 116/71 Mechanical Ventilator 45 07/24/20 12:00 28 116/71 Mechanical Ventilator 45 07/24/20 12:00 45 07/24/20 11:54 107 20 84 07/24/20 11:53 104 20 87 07/24/20 11:45 105 29 105/76 (86) 96 07/24/20 11:40 98.9 100 35 112/73 (86) 95 07/24/20 11:30 101 37 105/78 (87) 97 07/24/20 11:25 99.0 102 35 110/70 (83) 96 07/24/20 11:15 101 7 110/70 (83) 97 07/24/20 11:00 28 111/64 Mechanical Ventilator 45 07/24/20 11:00 28 111/64 Mechanical Ventilator 45 07/24/20 11:00 99.0 105 33 111/64 (80) 96 07/24/20 10:45 103 30 101/62 (75) 95 I&O Intake and Output 07/24/20 07/25/20 19:00 07:00 Intake Total 1080 ml 695.0 ml Output Total 1140 ml 480 ml Balance -60 ml 215.0 ml IV Total 1080 ml 695.0 ml Output Urine Total 1035 ml 480 ml Chest Tube Drainage Total 105 ml 0 ml Dressing: saturated Cardiovascular: RSR Respiratory: decreased breath sounds Abdomen: soft, flat, non-tender, present bowel sounds, non-distended Extremities: no edema, no tenderness, no cyanosis Laboratory Tests Test 07/25/20 04:06 White Blood Count 11.1 K/UL (4.8-10.8) H Red Blood Count 2.80 M/UL (4.20-5.40) L Hemoglobin 7.9 G/DL (12.0-16.0) L Hematocrit 25.7 % (37.0-47.0) L Mean Corpuscular Volume 92 FL (80-99) Mean Corpuscular Hemoglobin 28.4 PG (27.0-31.0) Mean Corpuscular Hemoglobin Concent 30.9 G/DL (32.0-36.0) L Red Cell Distribution Width 16.9 % (11.6-14.8) H Platelet Count 258 K/UL (150-450) Mean Platelet Volume 7.4 FL (6.5-10.1) Neutrophils (%) (Auto) % (45.0-75.0) Lymphocytes (%) (Auto) % (20.0-45.0) Monocytes (%) (Auto) % (1.0-10.0) Eosinophils (%) (Auto) % (0.0-3.0) Basophils (%) (Auto) % (0.0-2.0) Differential Total Cells Counted 100 Neutrophils % (Manual) 57 % (45-75) Lymphocytes % (Manual) 26 % (20-45) Monocytes % (Manual) 9 % (1-10) Eosinophils % (Manual) 8 % (0-3) H Basophils % (Manual) 0 % (0-2) Band Neutrophils 0 % (0-8) Platelet Estimate Adequate Platelet Morphology Normal Polychromasia 1+ Hypochromasia 1+ Anisocytosis 1+ Stomatocytes Occasional Sodium Level 138 MMOL/L (136-145) Potassium Level 3.8 MMOL/L (3.5-5.1) Chloride Level 102 MMOL/L (98-107) Carbon Dioxide Level 34 MMOL/L (21-32) H Anion Gap 3 mmol/L (5-15) L Blood Urea Nitrogen 10 mg/dL (7-18) Creatinine 0.5 MG/DL (0.55-1.30) L Estimat Glomerular Filtration Rate > 60 mL/min (>60) Glucose Level 106 MG/DL (74-106) Calcium Level 8.6 MG/DL (8.5-10.1) Total Bilirubin 0.4 MG/DL (0.2-1.0) Aspartate Amino Transf (AST/SGOT) 27 U/L (15-37) Alanine Aminotransferase (ALT/SGPT) 22 U/L (12-78) Alkaline Phosphatase 63 U/L (46-116) Total Protein 6.2 G/DL (6.4-8.2) L Albumin 2.2 G/DL (3.4-5.0) L Globulin 4.0 g/dL Albumin/Globulin Ratio 0.6 (1.0-2.7) L Plan Problems: (1) Respiratory distress (2) Respiratory failure Assessment & Plan: 50-year-old female Covid positive respiratory insufficiency intubated on ventilatory support declining. Leukocytosis increase oxygen requirement. Vent settings per pulmonology reviewed identified and agree. Unfortunately further surgical invention at this time is not appropriate as patient is not a candidate and her current condition. Prognosis overall guarded. Tracheostomy can be considered in the future if recovering or shows improvement and requires unable to be weaned from ventilator support. Currently okay for nutritional optimization with NG tube. Will need significant monitoring for decubitus formation given patient's size and condition. Okay for air mattress tolerated. Turn every 2 hours as tolerated. Patient is otherwise critically ill and blood pressure labile. Will need to monitor closely.Bilateral infiltrates are again demonstrated. Stable tube and line positions. will need trach will need to wean vent first no cuff leak trach okay Improving weaning well DC planning placement much improved peg placement trach changed acls now resuscitated (3) Hypoxia (4) Pneumonia due to COVID-19 virus Assessment & Plan: ++ as per pulm and ID (5) Diabetes mellitus out of control Assessment & Plan: DAILY ESTIMATED NEEDS: Needs based on Critical care, obesity 11-14kcal/kg actual body wt (140kg) kcals/kg 7886-1709 total kcals 1.5-2.0g prot/kg IBW (64.5kg) g protein/kg 96-129 g total protein 25-30ml/kg abw (83kg) mL/kg 0914-2414 total fluid mLs NUTRITION DIAGNOSIS: Swallowing difficulty R/T respiratory failure as evidenced by pt orally intubated and sedated, on OGT feeds. CURRENT TF: Vital 1.2 goal of 60ml/hr ENTERAL NUTRITION RECOMMENDATIONS: Vital AF 1.2 @ 60ml/hr x 24 hrs to provide 1440ml, 1728kcal, 108g prot, 1168ml free water * Maintain current critical care and carb controlled TF formula of Vital AF * TF @ goal meeds 100% est kcal/prot needs * HOB over 30 degrees/ water flush per MD TF may be lowered to 55ml/hr for improved BG control while maintaining Kcal and pro needs. ADDITIONAL RECOMMENDATIONS: * Calibrated bedscale wt * Monitor Propofol rate, need for TF adjustment-> now off * Monitor BGs closely : now improved, on novolog q 6rs + NISS * Monitor lytes- K elevated, monitor need for TF change * Rec bowel regimen- now w/ rectal tube . (6) Pneumothorax on right Assessment & Plan: right tension pneumothorax trach changed for cuff leak and decreased volumes pressures high after and ptx tension acls resuscitated right chest tube placed ptx resolved cont chest tube to suction am cxr wean vent Right chest tube, tracheostomy, nasogastric tube remain. Previously demonstrated subcutaneous emphysema has nearly completely cleared, with only questionably small residual in the left supraclavicular fossa. Extensive bilateral infiltrates persist. There is no pneumothorax currently. The heart is borderline enlarged. Pneumoperitoneum persists, may be slightly decreased Impression: Markedly improved subcutaneous emphysema Unchanged bilateral infiltrates Persistent but perhaps slightly decreased pneumoperitoneum (7) DEVENDRA (acute kidney injury) (8) Morbid obesity Az Devine Jul 25, 2020 10:37
--- NOTE | 2020-07-25 10:45 | Cardiac Electrophysiology PN ---
Assessment/Plan Assessment/Plan 1. Respiratory failure due to COVID-19 pneumonia. On tracheostomy on 100 % Fio2. Trach exchanged 07/22/[address] Devine Echo EF 60% 2. S/P Code x2 with hypotension and sammy arrest on 07/22/20 likely due to Pneumothorax No further after chest tube. HR stable 3. Right Pneumothorax, S/P chest tube placement and still bloody 4. Hypotension, on midodrine 10 mg 3 times daily and off pressors 5. Dysphagia. S/P PEG 07/24/20 6. Right lower extremity DVT. Follow up by Hematology. May need IVC filter placement. 7. Severe anemia, S/P PRBC DW RN and Dr Devine Subjective Subjective In ICU on the Vent on 45 % Fio2 and PEEP 5 in SR. Coded twice for hypotension and bradycardia while on the Vent about 20 minutes after tracheostomy was changed 07/22/20 Found to have Right Pneumothorax and underwent Right chest tube placement by Dr Devine S/P PRBC. S/P PEG 07/24/20. Chest tube still draining bloody fluid Objective Last 24 Hour Vital Signs Date Time Temp Pulse Resp B/P (MAP) Pulse Ox O2 Delivery O2 Flow Rate FiO2 07/25/20 10:00 26 99/60 Mechanical Ventilator 55 07/25/20 10:00 96 23 93/60 (71) 100 07/25/20 09:15 96 30 90/56 (67) 100 07/25/20 09:00 29 93/54 Mechanical Ventilator 55 07/25/20 09:00 29 93/54 Mechanical Ventilator 55 07/25/20 09:00 96 31 93/54 (67) 100 07/25/20 08:45 97 34 93/58 (70) 100 07/25/20 08:30 97 38 94/55 (68) 100 07/25/20 08:15 98 6 95/56 (69) 100 07/25/20 08:00 55 07/25/20 08:00 100.0 100 23 95/60 (72) 100 07/25/20 08:00 98 07/25/20 08:00 22 95/60 Mechanical Ventilator 55 07/25/20 08:00 26 95/60 Mechanical Ventilator 55 07/25/20 07:45 97 27 97/57 (70) 100 07/25/20 07:34 97 25 55 07/25/20 07:30 98 27 95/59 (71) 100 07/25/20 07:15 97 26 96/56 (69) 100 07/25/20 07:00 24 101/63 Mechanical Ventilator 55 07/25/20 07:00 24 101/63 Mechanical Ventilator 55 07/25/20 07:00 99 24 101/63 (76) 100 07/25/20 06:30 99 24 98/61 (73) 100 07/25/20 06:30 96 24 07/25/20 06:15 22 104/70 Mechanical Ventilator 55 07/25/20 06:15 105 22 104/70 (81) 100 07/25/20 06:00 30 102/67 55 07/25/20 06:00 30 102/67 Mechanical Ventilator 55 07/25/20 06:00 99 30 102/67 (79) 100 07/25/20 05:45 94 25 97/56 (70) 100 07/25/20 05:45 25 97/56 Mechanical Ventilator 55 07/25/20 05:30 31 96/57 Mechanical Ventilator 55 07/25/20 05:30 95 31 96/57 (70) 100 07/25/20 05:15 96 24 97/57 (70) 100 07/25/20 05:15 14 97/57 Mechanical Ventilator 55 07/25/20 05:00 95 28 96/58 (71) 100 07/25/20 05:00 30 96/58 Mechanical Ventilator 55 07/25/20 05:00 30 96/58 Mechanical Ventilator 55 07/25/20 04:55 98 27 55 07/25/20 04:30 95 28 89/53 (65) 100 07/25/20 04:00 97 07/25/20 04:00 55 07/25/20 04:00 32 105/73 Mechanical Ventilator 55 07/25/20 04:00 32 105/73 Mechanical Ventilator 55 07/25/20 04:00 97 32 105/73 (84) 100 07/25/20 04:00 Mechanical Ventilator Mechanical Ventilator Mechanical Ventilator 07/25/20 03:30 97 31 106/68 (81) 100 07/25/20 03:20 97 29 55 07/25/20 03:00 28 94/58 Mechanical Ventilator 55 07/25/20 03:00 28 94/58 Mechanical Ventilator 55 07/25/20 03:00 92 28 94/58 (70) 100 07/25/20 02:30 94 27 103/66 (78) 100 07/25/20 02:00 28 101/64 Mechanical Ventilator 55 07/25/20 02:00 28 101/64 Mechanical Ventilator 55 07/25/20 02:00 93 28 101/64 (76) 100 07/25/20 01:30 93 31 99/67 (78) 100 07/25/20 01:00 27 98/66 Mechanical Ventilator 55 07/25/20 01:00 27 98/66 Mechanical Ventilator 55 07/25/20 01:00 98.5 93 27 98/66 (77) 100 07/25/20 00:30 92 28 93/63 (73) 100 07/25/20 00:00 29 94/63 Mechanical Ventilator 55 07/25/20 00:00 29 94/63 Mechanical Ventilator 55 07/25/20 00:00 55 07/25/20 00:00 92 07/25/20 00:00 Mechanical Ventilator Mechanical Ventilator Mechanical Ventilator 07/25/20 00:00 92 29 94/63 (73) 100 07/24/20 23:30 91 30 89/55 (66) 100 07/24/20 23:20 97 27 55 07/24/20 23:00 93 26 94/60 (71) 100 07/24/20 23:00 26 94/60 Mechanical Ventilator 55 07/24/20 23:00 26 94/60 Mechanical Ventilator 55 07/24/20 22:30 93 26 92/65 (74) 100 07/24/20 22:00 28 98/61 Mechanical Ventilator 55 07/24/20 22:00 28 98/61 Mechanical Ventilator 55 07/24/20 22:00 95 28 98/61 (73) 100 07/24/20 21:30 95 28 91/61 (71) 100 07/24/20 21:29 102 24 55 07/24/20 21:00 28 94/64 Mechanical Ventilator 55 07/24/20 21:00 28 94/64 Mechanical Ventilator 55 07/24/20 21:00 94 28 94/64 (74) 100 07/24/20 20:30 93 31 99/64 (76) 100 07/24/20 20:00 98.7 99 25 94/63 (73) 100 07/24/20 20:00 99 07/24/20 20:00 Mechanical Ventilator Mechanical Ventilator Mechanical Ventilator 07/24/20 20:00 25 94/63 Mechanical Ventilator 55 07/24/20 20:00 25 94/63 Mechanical Ventilator 55 07/24/20 20:00 55 07/24/20 19:00 94 27 55 07/24/20 19:00 102 30 96/68 (77) 100 07/24/20 19:00 27 96/68 Mechanical Ventilator 55 07/24/20 19:00 26 96/68 Mechanical Ventilator 55 07/24/20 18:45 102 30 100/68 (79) 100 07/24/20 18:30 104 31 96/69 (78) 100 07/24/20 18:15 108 43 109/69 (82) 98 07/24/20 18:00 27 105/71 Mechanical Ventilator 55 07/24/20 18:00 26 105/71 Mechanical Ventilator 55 07/24/20 18:00 103 30 105/71 (82) 99 07/24/20 17:54 26 109/73 Mechanical Ventilator 55 07/24/20 17:45 101 23 112/69 (83) 100 07/24/20 17:30 99 25 104/72 (83) 100 07/24/20 17:15 99 26 109/69 (82) 100 07/24/20 17:00 28 108/71 Mechanical Ventilator 55 07/24/20 17:00 28 108/71 Mechanical Ventilator 65 07/24/20 17:00 104 28 108/71 (83) 99 07/24/20 16:45 98 26 110/68 (82) 100 07/24/20 16:30 100 22 105/70 (82) 100 07/24/20 16:15 100 9 105/70 (82) 100 07/24/20 16:00 100.2 103 24 104/74 (84) 100 07/24/20 16:00 Mechanical Ventilator Mechanical Ventilator Mechanical Ventilator 07/24/20 16:00 26 104/74 Mechanical Ventilator 55 07/24/20 16:00 26 104/74 Mechanical Ventilator 65 07/24/20 16:00 55 07/24/20 16:00 102 07/24/20 15:45 104 18 104/67 (79) 100 07/24/20 15:30 103 11 110/73 (85) 100 07/24/20 15:15 112 37 127/79 (95) 100 07/24/20 15:00 104 28 130/70 (90) 100 07/24/20 15:00 31 131/88 Mechanical Ventilator 55 07/24/20 15:00 31 131/88 Mechanical Ventilator 55 07/24/20 14:45 119 33 120/105 (110) 88 07/24/20 14:40 117 38 55 07/24/20 14:30 110 39 119/70 (86) 97 07/24/20 14:15 115 36 106/79 (88) 92 07/24/20 14:00 113 30 118/83 (95) 96 07/24/20 14:00 31 118/83 Mechanical Ventilator 45 07/24/20 14:00 31 118/83 Mechanical Ventilator 45 07/24/20 13:30 113 41 131/70 (90) 92 07/24/20 13:15 109 31 123/76 (92) 95 07/24/20 13:00 98 14 141/87 (105) 100 07/24/20 13:00 31 141/87 Mechanical Ventilator 45 07/24/20 13:00 31 141/87 Mechanical Ventilator 45 07/24/20 12:45 96 18 133/93 (106) 99 07/24/20 12:30 108 31 121/80 (94) 97 07/24/20 12:15 97 31 115/73 (87) 99 07/24/20 12:07 104/69 07/24/20 12:00 98.9 105 40 116/71 (86) 87 07/24/20 12:00 99 07/24/20 12:00 Mechanical Ventilator Mechanical Ventilator Mechanical Ventilator 07/24/20 12:00 28 116/71 Mechanical Ventilator 45 07/24/20 12:00 28 116/71 Mechanical Ventilator 45 07/24/20 12:00 45 07/24/20 11:54 107 20 84 07/24/20 11:53 104 20 87 07/24/20 11:45 105 29 105/76 (86) 96 07/24/20 11:40 98.9 100 35 112/73 (86) 95 07/24/20 11:30 101 37 105/78 (87) 97 07/24/20 11:25 99.0 102 35 110/70 (83) 96 07/24/20 11:15 101 7 110/70 (83) 97 07/24/20 11:00 28 111/64 Mechanical Ventilator 45 07/24/20 11:00 28 111/64 Mechanical Ventilator 45 07/24/20 11:00 99.0 105 33 111/64 (80) 96 07/24/20 10:45 103 30 101/62 (75) 95 Intake and Output 07/24/20 07/25/20 19:00 07:00 Intake Total 1080 ml 695.0 ml Output Total 1140 ml 480 ml Balance -60 ml 215.0 ml IV Total 1080 ml 695.0 ml Output Urine Total 1035 ml 480 ml Chest Tube Drainage Total 105 ml 0 ml Laboratory Tests Test 07/25/20 04:06 White Blood Count 11.1 K/UL (4.8-10.8) H Red Blood Count 2.80 M/UL (4.20-5.40) L Hemoglobin 7.9 G/DL (12.0-16.0) L Hematocrit 25.7 % (37.0-47.0) L Mean Corpuscular Volume 92 FL (80-99) Mean Corpuscular Hemoglobin 28.4 PG (27.0-31.0) Mean Corpuscular Hemoglobin Concent 30.9 G/DL (32.0-36.0) L Red Cell Distribution Width 16.9 % (11.6-14.8) H Platelet Count 258 K/UL (150-450) Mean Platelet Volume 7.4 FL (6.5-10.1) Neutrophils (%) (Auto) % (45.0-75.0) Lymphocytes (%) (Auto) % (20.0-45.0) Monocytes (%) (Auto) % (1.0-10.0) Eosinophils (%) (Auto) % (0.0-3.0) Basophils (%) (Auto) % (0.0-2.0) Differential Total Cells Counted 100 Neutrophils % (Manual) 57 % (45-75) Lymphocytes % (Manual) 26 % (20-45) Monocytes % (Manual) 9 % (1-10) Eosinophils % (Manual) 8 % (0-3) H Basophils % (Manual) 0 % (0-2) Band Neutrophils 0 % (0-8) Platelet Estimate Adequate Platelet Morphology Normal Polychromasia 1+ Hypochromasia 1+ Anisocytosis 1+ Stomatocytes Occasional Sodium Level 138 MMOL/L (136-145) Potassium Level 3.8 MMOL/L (3.5-5.1) Chloride Level 102 MMOL/L (98-107) Carbon Dioxide Level 34 MMOL/L (21-32) H Anion Gap 3 mmol/L (5-15) L Blood Urea Nitrogen 10 mg/dL (7-18) Creatinine 0.5 MG/DL (0.55-1.30) L Estimat Glomerular Filtration Rate > 60 mL/min (>60) Glucose Level 106 MG/DL (74-106) Calcium Level 8.6 MG/DL (8.5-10.1) Total Bilirubin 0.4 MG/DL (0.2-1.0) Aspartate Amino Transf (AST/SGOT) 27 U/L (15-37) Alanine Aminotransferase (ALT/SGPT) 22 U/L (12-78) Alkaline Phosphatase 63 U/L (46-116) Total Protein 6.2 G/DL (6.4-8.2) L Albumin 2.2 G/DL (3.4-5.0) L Globulin 4.0 g/dL Albumin/Globulin Ratio 0.6 (1.0-2.7) L Objective HEAD AND NECK: Status post tracheostomy LUNGS: Coarse rhonchi.Right chest tube is in CARDIOVASCULAR: Regular S1 and S2 with no gallop. ABDOMEN: Soft.S/P PEG EXTREMITIES: 1+ pitting edema. Hill Burger MD Jul 25, 2020 10:45
--- NOTE | 2020-07-25 11:07 | Nephrology Progress Note ---
Assessment/Plan Problem List: (1) DEVENDRA (acute kidney injury) (2) Morbid obesity (3) Diabetes mellitus out of control (4) Pneumonia due to COVID-19 virus (5) Respiratory failure Assessment Acute renal failure Obstructive uropathy, clogged [place] Respiratory failure COVID-19 pneumonia Morbid obesity Plan July 25: Seen in ICU. Received PEG yesterday. Has trach connected to vent. Full code. Labs reviewed. Albumin bolus given. IV started on table feeding via GT tube initiated. July 24: Patient seen in ICU. Status quo. Has trach. Being ventilated. Has right chest tube. Labs reviewed. Continue per consultants. Low magnesium and low phosphorus replaced. July 23: Patient seen in ICU. Discussed with RN. Yesterday the patient developed tension pneumothorax. Patient has a chest tube today. Labs reviewed. Renal parameters stable. Medication list reviewed. July 22: Status quo. Labs reviewed. Serum calcium elevated. Vitamin D d iscontinued. Pamidronate 60 mg IV given. Continue to monitor calcium and phosphorus. Patient due for PEG today. July 21: Status quo. Awake responsive. Labs reviewed. Medication list reviewed. Stable from renal standpoint of view. Due for PEG tomorrow. Continue her current management. July 20: Status quo. PEG procedure deferred to July 22. Patient remains full code. Abnormal electrolytes addressed. FiO2 50% unchanged. Continue per consultants. July 19: Status quo. Due for PEG insertion today. Remains full code. Trach and vent. Low magnesium addressed. Continue per consultants. FiO2 50%. July 18: Status quo. Labs reviewed. Low potassium addressed. Continue per consultants. Remains full code. July 17: Remains full code. Trach to vent. FiO2 40%. Labs reviewed. Low potassium addressed. Continue per consultants. July 16: Status quo. FiO2 45%. Discussed with RN. Continue to taper her mind altering medications and sedatives. Stable from renal standpoint of view. Abnormal electrolytes addressed. July 15: Full code. FiO2 50%. Intubated on ventilator. No labs drawn today. Continue per consultants. July 14: Status quo. FiO2 50%. Labs reviewed. Renal parameters stable. Continue per current treatment plan and consultants. Medication list reviewed. July 13: FiO2 60% unchanged. Labs reviewed. Renal parameters stable. M edication list reviewed. Continue per consultants. July 12: Full code. Labs reviewed. Normal electrolytes addressed. Con tinue per pulmonary. Medication list reviewed. July 11: Remains full code. On ventilator. FiO2 down to 65%. Renal parame ters stable. Low magnesium addressed. Continue her current management. July 10: Full code. On ventilator. FiO2 70%. Hemoglobin mid sevens. Renal parameters stable. Continue per consultants. July 09: Labs reviewed. Renal parameters stable. FiO2 80% unchanged. Continue per pulmonary. July 08: Labs reviewed. Renal parameters and electrolytes stable. ABG suggestive of high PCO2. At this time patient is on FiO2 of 80%. Continue per pulmonary. Continue to monitor renal parameters. July 07: No CHEM panel drawn today. More potassium given. Continue to monitor renal parameters. Continue per consultants. Discussed with RAKEL Veras. July 06: Low potassium addressed. Albumin bolus for low BP given. Patient remains full code. Continue to monitor electrolytes and renal parameters. Continue per consultants. Hemoglobin low today, transfusion per compensation programs manager. July 05: Trach to vent. FiO2 80%. Renal parameters stable. PCO2 remains high at 44. Continue to monitor renal parameters. July 04: Patient now trach. Full code. Labs reviewed. Renal parameters stable. Low magnesium addressed. July 03: Intubated. Full code. Labs reviewed. Abnormal electrolytes addressed. Continue per consultants. Overall status unchanged. July 02: Remains intubated. Remains full code. Remains on FiO2 of 70%. Labs reviewed. Abnormal electrolytes addressed. Continue per pulmonary. July 01: Remains on 70% FiO2. Full code. Intubated on ventilator. Retaining CO2. Discussed with RN. Will do ABG today. Albumin bolus given. 1 dose of Diamox given. June 30: Status quo. Labs reviewed. Abnormal electrolytes addressed. Remains full code. Remains on ventilator. Magnesium sulfate 4 gram IVPB given. June 29: Full code. Intubated on ventilator. Labs reviewed. Stable from renal standpoint of view. Continue per consultants. June 28: Remains full code. Remains intubated on ventilator. Labs reviewed. Vitamin D supplement ordered. Continue to monitor renal parameters. Continue per consultants. June 27: Remains full code. Intubated on ventilator. Labs reviewed. Abnormal electrolyte addressed. Continue to monitor renal parameters and electrolytes. Continue per consultants. June 26: Labs reviewed. Remains full code. Remains intubated. Back on NGT feeding. Continue to monitor renal parameters. June 25: Labs reviewed. Renal parameters stable. Remains full code. Due to positional status patient could not be fed via NG tube. Starting TPN? Is being entertained. Continue per consultants. June 24: Labs reviewed. Renal parameters stable. Remains full code. Remains intubated on ventilator. Continue per consultants. June 23: Labs reviewed. Renal parameters stable. Discussed with RN. Abnormal electrolyte addressed. Remains full code. Remains on ventilator. Continue per consultants. June 22: Labs reviewed. Low potassium addressed. Discussed with RAKEL Moran. Patient full code. Remains on ventilator. Continue to monitor renal parameters. June 21. Labs reviewed. Abnormal electrolyte addressed. Full code. Remains on ventilator. Medication list reviewed. Continue per pulmonary management. DC IV fluid, resume Lasix daily, check chest x-ray. June 20: Labs reviewed. Abnormal electrolytes. Patient remains full code. Continue per consultants. Noted and addressed June 19: Labs reviewed. Abnormal electrolytes noted and addressed. Remains intubated on ventilator. Remains full code. June 18: Labs reviewed. Remains intubated on ventilator. Full code. Abnormal electrolyte addressed. Continue as is. June 17: Labs reviewed. Abnormal electrolytes addressed. Patient remains full code and intubated on ventilator. Continue per consultants. Renal parameters are within normal limits. June 16: Labs reviewed. Potassium chloride replaced. Remains full code. Remains intubated on ventilator. Continue per consultants. Continue to monitor renal parameters. June 15: Labs reviewed. Serum creatinine 1. Stable from renal standpoint to view. Continue per consultants. June 14: Labs reviewed. Full code. Serum creatinine of 3.5 down to 1.4. Low potassium addressed. Continue per current treatment plan. Continue to monitor renal parameters. Midodrine started. Albumin bolus given. Previously: DC Lasix drip Increase Protonix dose Monitor renal parameters, electrolytes Per orders Subjective ROS Limited/Unobtainable: Yes Objective Objective Last 24 Hour Vital Signs Date Time Temp Pulse Resp B/P (MAP) Pulse Ox O2 Delivery O2 Flow Rate FiO2 07/25/20 10:00 26 99/60 Mechanical Ventilator 55 07/25/20 10:00 96 23 93/60 (71) 100 07/25/20 09:15 96 30 90/56 (67) 100 07/25/20 09:00 29 93/54 Mechanical Ventilator 55 07/25/20 09:00 29 93/54 Mechanical Ventilator 55 07/25/20 09:00 96 31 93/54 (67) 100 07/25/20 08:45 97 34 93/58 (70) 100 07/25/20 08:30 97 38 94/55 (68) 100 07/25/20 08:15 98 6 95/56 (69) 100 07/25/20 08:00 55 07/25/20 08:00 100.0 100 23 95/60 (72) 100 07/25/20 08:00 98 07/25/20 08:00 22 95/60 Mechanical Ventilator 55 07/25/20 08:00 26 95/60 Mechanical Ventilator 55 07/25/20 07:45 97 27 97/57 (70) 100 07/25/20 07:34 97 25 55 07/25/20 07:30 98 27 95/59 (71) 100 07/25/20 07:15 97 26 96/56 (69) 100 07/25/20 07:00 24 101/63 Mechanical Ventilator 55 07/25/20 07:00 24 101/63 Mechanical Ventilator 55 07/25/20 07:00 99 24 101/63 (76) 100 07/25/20 06:30 99 24 98/61 (73) 100 07/25/20 06:30 96 24 07/25/20 06:15 22 104/70 Mechanical Ventilator 55 07/25/20 06:15 105 22 104/70 (81) 100 07/25/20 06:00 30 102/67 55 07/25/20 06:00 30 102/67 Mechanical Ventilator 55 07/25/20 06:00 99 30 102/67 (79) 100 07/25/20 05:45 94 25 97/56 (70) 100 07/25/20 05:45 25 97/56 Mechanical Ventilator 55 07/25/20 05:30 31 96/57 Mechanical Ventilator 55 07/25/20 05:30 95 31 96/57 (70) 100 07/25/20 05:15 96 24 97/57 (70) 100 07/25/20 05:15 14 97/57 Mechanical Ventilator 55 07/25/20 05:00 95 28 96/58 (71) 100 07/25/20 05:00 30 96/58 Mechanical Ventilator 55 07/25/20 05:00 30 96/58 Mechanical Ventilator 55 07/25/20 04:55 98 27 55 07/25/20 04:30 95 28 89/53 (65) 100 07/25/20 04:00 97 07/25/20 04:00 55 07/25/20 04:00 32 105/73 Mechanical Ventilator 55 07/25/20 04:00 32 105/73 Mechanical Ventilator 55 07/25/20 04:00 97 32 105/73 (84) 100 07/25/20 04:00 Mechanical Ventilator Mechanical Ventilator Mechanical Ventilator 07/25/20 03:30 97 31 106/68 (81) 100 07/25/20 03:20 97 29 55 07/25/20 03:00 28 94/58 Mechanical Ventilator 55 07/25/20 03:00 28 94/58 Mechanical Ventilator 55 07/25/20 03:00 92 28 94/58 (70) 100 07/25/20 02:30 94 27 103/66 (78) 100 07/25/20 02:00 28 101/64 Mechanical Ventilator 55 07/25/20 02:00 28 101/64 Mechanical Ventilator 55 07/25/20 02:00 93 28 101/64 (76) 100 07/25/20 01:30 93 31 99/67 (78) 100 07/25/20 01:00 27 98/66 Mechanical Ventilator 55 07/25/20 01:00 27 98/66 Mechanical Ventilator 55 07/25/20 01:00 98.5 93 27 98/66 (77) 100 07/25/20 00:30 92 28 93/63 (73) 100 07/25/20 00:00 29 94/63 Mechanical Ventilator 55 07/25/20 00:00 29 94/63 Mechanical Ventilator 55 07/25/20 00:00 55 07/25/20 00:00 92 07/25/20 00:00 Mechanical Ventilator Mechanical Ventilator Mechanical Ventilator 07/25/20 00:00 92 29 94/63 (73) 100 07/24/20 23:30 91 30 89/55 (66) 100 07/24/20 23:20 97 27 55 07/24/20 23:00 93 26 94/60 (71) 100 07/24/20 23:00 26 94/60 Mechanical Ventilator 55 07/24/20 23:00 26 94/60 Mechanical Ventilator 55 07/24/20 22:30 93 26 92/65 (74) 100 07/24/20 22:00 28 98/61 Mechanical Ventilator 55 07/24/20 22:00 28 98/61 Mechanical Ventilator 55 07/24/20 22:00 95 28 98/61 (73) 100 07/24/20 21:30 95 28 91/61 (71) 100 07/24/20 21:29 102 24 55 07/24/20 21:00 28 94/64 Mechanical Ventilator 55 07/24/20 21:00 28 94/64 Mechanical Ventilator 55 07/24/20 21:00 94 28 94/64 (74) 100 07/24/20 20:30 93 31 99/64 (76) 100 07/24/20 20:00 98.7 99 25 94/63 (73) 100 07/24/20 20:00 99 07/24/20 20:00 Mechanical Ventilator Mechanical Ventilator Mechanical Ventilator 07/24/20 20:00 25 94/63 Mechanical Ventilator 55 07/24/20 20:00 25 94/63 Mechanical Ventilator 55 07/24/20 20:00 55 07/24/20 19:00 94 27 55 07/24/20 19:00 102 30 96/68 (77) 100 07/24/20 19:00 27 96/68 Mechanical Ventilator 55 07/24/20 19:00 26 96/68 Mechanical Ventilator 55 07/24/20 18:45 102 30 100/68 (79) 100 07/24/20 18:30 104 31 96/69 (78) 100 07/24/20 18:15 108 43 109/69 (82) 98 07/24/20 18:00 27 105/71 Mechanical Ventilator 55 07/24/20 18:00 26 105/71 Mechanical Ventilator 55 07/24/20 18:00 103 30 105/71 (82) 99 07/24/20 17:54 26 109/73 Mechanical Ventilator 55 07/24/20 17:45 101 23 112/69 (83) 100 07/24/20 17:30 99 25 104/72 (83) 100 07/24/20 17:15 99 26 109/69 (82) 100 07/24/20 17:00 28 108/71 Mechanical Ventilator 55 07/24/20 17:00 28 108/71 Mechanical Ventilator 65 07/24/20 17:00 104 28 108/71 (83) 99 07/24/20 16:45 98 26 110/68 (82) 100 07/24/20 16:30 100 22 105/70 (82) 100 07/24/20 16:15 100 9 105/70 (82) 100 07/24/20 16:00 100.2 103 24 104/74 (84) 100 07/24/20 16:00 Mechanical Ventilator Mechanical Ventilator Mechanical Ventilator 07/24/20 16:00 26 104/74 Mechanical Ventilator 55 07/24/20 16:00 26 104/74 Mechanical Ventilator 65 07/24/20 16:00 55 07/24/20 16:00 102 07/24/20 15:45 104 18 104/67 (79) 100 07/24/20 15:30 103 11 110/73 (85) 100 07/24/20 15:15 112 37 127/79 (95) 100 07/24/20 15:00 104 28 130/70 (90) 100 07/24/20 15:00 31 131/88 Mechanical Ventilator 55 07/24/20 15:00 31 131/88 Mechanical Ventilator 55 07/24/20 14:45 119 33 120/105 (110) 88 07/24/20 14:40 117 38 55 07/24/20 14:30 110 39 119/70 (86) 97 07/24/20 14:15 115 36 106/79 (88) 92 07/24/20 14:00 113 30 118/83 (95) 96 07/24/20 14:00 31 118/83 Mechanical Ventilator 45 07/24/20 14:00 31 118/83 Mechanical Ventilator 45 07/24/20 13:30 113 41 131/70 (90) 92 07/24/20 13:15 109 31 123/76 (92) 95 07/24/20 13:00 98 14 141/87 (105) 100 07/24/20 13:00 31 141/87 Mechanical Ventilator 45 07/24/20 13:00 31 141/87 Mechanical Ventilator 45 07/24/20 12:45 96 18 133/93 (106) 99 07/24/20 12:30 108 31 121/80 (94) 97 07/24/20 12:15 97 31 115/73 (87) 99 07/24/20 12:07 104/69 07/24/20 12:00 98.9 105 40 116/71 (86) 87 07/24/20 12:00 99 07/24/20 12:00 Mechanical Ventilator Mechanical Ventilator Mechanical Ventilator 07/24/20 12:00 28 116/71 Mechanical Ventilator 45 07/24/20 12:00 28 116/71 Mechanical Ventilator 45 07/24/20 12:00 45 07/24/20 11:54 107 20 84 07/24/20 11:53 104 20 87 07/24/20 11:45 105 29 105/76 (86) 96 07/24/20 11:40 98.9 100 35 112/73 (86) 95 07/24/20 11:30 101 37 105/78 (87) 97 07/24/20 11:25 99.0 102 35 110/70 (83) 96 07/24/20 11:15 101 7 110/70 (83) 97 Intake and Output 07/24/20 07/25/20 19:00 07:00 Intake Total 1080 ml 695.0 ml Output Total 1140 ml 480 ml Balance -60 ml 215.0 ml IV Total 1080 ml 695.0 ml Output Urine Total 1035 ml 480 ml Chest Tube Drainage Total 105 ml 0 ml Current Medications Medications (Trade) Dose Ordered Sig/Zelda Route PRN Reason Start Time Stop Time Status Last Admin Dose Admin Acetaminophen (Tylenol) 650 mg Q4H PRN NG Temp >100.5 06/29/20 10:15 07/29/20 10:14 07/24/20 09:04 Acetaminophen (Tylenol) 650 mg Q6H PRN NG Mild Pain (Pain Scale 1-3) 06/29/20 10:15 07/29/20 10:14 07/22/20 11:56 Calcitonin [place] (Miacalcin) 1 sprays DAILY NASAL 07/22/20 14:00 10/20/20 13:59 07/25/20 10:22 Chlorhexidine Gluconate (Inna-Hex 2%) 1 applic DAILY@2000 TOPIC 07/20/20 20:00 10/18/20 19:59 07/24/20 20:02 Dextrose (Dextrose 50%) 25 ml Q30M PRN IV Hypoglycemia 06/05/20 10:45 09/03/20 10:44 Dextrose (Dextrose 50%) 50 ml Q30M PRN IV Hypoglycemia 06/05/20 10:45 09/03/20 10:44 Dextrose/Sodium Chloride 1,000 ml @ 75 mls/hr [id number] IV 07/20/20 12:30 08/19/20 12:29 07/24/20 22:00 Enoxaparin Sodium (Lovenox) 110 mg EVERY 12 HOURS SUBQ 07/17/20 21:00 10/15/20 20:59 07/23/20 20:19 Fentanyl Citrate 250 ml @ 1 mls/hr Q24H IV 07/25/20 05:00 07/27/20 04:59 07/25/20 05:00 Guaifenesin/ Codeine Phosphate (Robitussin with codeine) 5 ml Q6H PRN NG For Cough 07/14/20 14:15 08/13/20 14:14 07/18/20 21:44 Heparin Sodium/ Sodium Chloride (Heparin 1000 units/500ml Premix) 1,000 unit ONCE PRN INJ radiology use 07/24/20 12:30 07/26/20 12:29 Lansoprazole (Prevacid) 30 mg DAILY GT 07/18/20 09:00 08/09/20 08:59 07/24/20 08:48 Lidocaine HCl (Xylocaine 1% 30ml) 30 ml ONCE PRN INJ radiology use 07/24/20 12:30 07/26/20 12:29 Meropenem 1 gm/ Sodium Chloride 55 ml @ 110 mls/hr Q8H IVPB 07/22/20 12:00 07/27/20 11:59 07/25/20 04:00 Midazolam HCl 200 ml @ 0 mls/hr Q24H PRN IV sedation 07/22/20 14:06 07/29/20 14:05 07/25/20 10:00 Midodrine (Pro-Amatine) 10 mg Q8HR GT 06/30/20 14:00 09/12/20 13:59 07/24/20 05:22 Norepinephrine Bitartrate 8 mg/ Dextrose 250 ml @ 0 mls/hr Q24H IV 07/22/20 13:00 07/25/20 12:59 07/23/20 04:08 Quetiapine Fumarate (SEROqueL) 50 mg Q12HR GT 07/16/20 13:30 08/30/20 13:29 07/24/20 08:48 Laboratory Tests 07/25/20 04:06: White Blood Count 11.1H, Red Blood Count 2.80L, Hemoglobin 7.9L, Hematocrit 25.7L, Mean Corpuscular Volume 92, Mean Corpuscular Hemoglobin 28.4, Mean Corpuscular Hemoglobin Concent 30.9L, Red Cell Distribution Width 16.9H, Platelet Count 258, Mean Platelet Volume 7.4, Neutrophils (%) (Auto) , Lymphocytes (%) (Auto) , Monocytes (%) (Auto) , Eosinophils (%) (Auto) , Basophils (%) (Auto) , Differential Total Cells Counted 100, Neutrophils % (Manual) 57, Lymphocytes % (Manual) 26, Monocytes % (Manual) 9, Eosinophils % (Manual) 8H, Basophils % (Manual) 0, Band Neutrophils 0, Platelet Estimate Adequate, Platelet Morphology Normal, Polychromasia 1+, Hypochromasia 1+, Anisocytosis 1+, Stomatocytes Occasional, Sodium Level 138, Potassium Level 3.8, Chloride Level 102, Carbon Dioxide Level 34H, Anion Gap 3L, Blood Urea Nitrogen 10, Creatinine 0.5L, Estimat Glomerular Filtration Rate > 60, Glucose Level 106, Calcium Level 8.6, Total Bilirubin 0.4, Aspartate Amino Transf (AST/SGOT) 27, Alanine Aminotransferase (ALT/SGPT) 22, Alkaline Phosphatase 63, Total Protein 6.2L, Albumin 2.2L, Globulin 4.0, Albumin/Globulin Ratio 0.6L Height (Feet): 5 Height (Inches): 5.00 Weight (Pounds): 223 General Appearance: no apparent distress Cardiovascular: tachycardia Respiratory/Chest: decreased breath sounds, other - Has a right chest tube Abdomen: distended, other - Has PEG now Rigo Tyler MD Jul 25, 2020 11:07
[2020-07-25] MEDS: D5NS 1,000 ML IV SCH (11:28)
--- NOTE | 2020-07-25 11:46 | Pulmonology Progress Note ---
Subjective ROS Limited/Unobtainable: Yes Interval Events: Events noted; required R CT after code. Also trach changed to 7 Constitutional: Reports: fever, other - resolved HEENT: Repors: no symptoms Respiratory: Reports: no symptoms Cardiovascular: Reports: no symptoms Gastrointestinal/Abdominal: Reports: vomiting Genitourinary: Reports: no symptoms Allergies: Coded Allergies: No Known Allergies (Unverified , 05/28/20) All Systems: reviewed and negative except above Objective Last 24 Hour Vital Signs Date Time Temp Pulse Resp B/P (MAP) Pulse Ox O2 Delivery O2 Flow Rate FiO2 07/25/20 11:00 97 21 89/54 (66) 100 07/25/20 11:00 29 100/58 Mechanical Ventilator 55 07/25/20 11:00 29 100/58 Mechanical Ventilator 55 07/25/20 10:45 100 25 100/58 (72) 100 07/25/20 10:30 100 27 102/62 (75) 100 07/25/20 10:15 96 33 99/60 (73) 100 07/25/20 10:00 29 93/54 Mechanical Ventilator 55 07/25/20 10:00 26 99/60 Mechanical Ventilator 55 07/25/20 10:00 96 23 93/60 (71) 100 07/25/20 09:15 96 30 90/56 (67) 100 07/25/20 09:00 29 93/54 Mechanical Ventilator 55 07/25/20 09:00 29 93/54 Mechanical Ventilator 55 07/25/20 09:00 96 31 93/54 (67) 100 07/25/20 08:45 97 34 93/58 (70) 100 07/25/20 08:30 97 38 94/55 (68) 100 07/25/20 08:15 98 6 95/56 (69) 100 07/25/20 08:00 55 07/25/20 08:00 100.0 100 23 95/60 (72) 100 07/25/20 08:00 98 07/25/20 08:00 22 95/60 Mechanical Ventilator 55 07/25/20 08:00 26 95/60 Mechanical Ventilator 55 07/25/20 08:00 Mechanical Ventilator Mechanical Ventilator Mechanical Ventilator 07/25/20 07:45 97 27 97/57 (70) 100 07/25/20 07:34 97 25 55 07/25/20 07:30 98 27 95/59 (71) 100 07/25/20 07:15 97 26 96/56 (69) 100 07/25/20 07:00 24 101/63 Mechanical Ventilator 55 07/25/20 07:00 24 101/63 Mechanical Ventilator 55 07/25/20 07:00 99 24 101/63 (76) 100 07/25/20 06:30 99 24 98/61 (73) 100 07/25/20 06:30 96 24 07/25/20 06:15 22 104/70 Mechanical Ventilator 55 07/25/20 06:15 105 22 104/70 (81) 100 07/25/20 06:00 30 102/67 55 07/25/20 06:00 30 102/67 Mechanical Ventilator 55 07/25/20 06:00 99 30 102/67 (79) 100 07/25/20 05:45 94 25 97/56 (70) 100 07/25/20 05:45 25 97/56 Mechanical Ventilator 55 07/25/20 05:30 31 96/57 Mechanical Ventilator 55 07/25/20 05:30 95 31 96/57 (70) 100 07/25/20 05:15 96 24 97/57 (70) 100 07/25/20 05:15 14 97/57 Mechanical Ventilator 55 07/25/20 05:00 95 28 96/58 (71) 100 07/25/20 05:00 30 96/58 Mechanical Ventilator 55 07/25/20 05:00 30 96/58 Mechanical Ventilator 55 07/25/20 04:55 98 27 55 07/25/20 04:30 95 28 89/53 (65) 100 07/25/20 04:00 97 07/25/20 04:00 55 07/25/20 04:00 32 105/73 Mechanical Ventilator 55 07/25/20 04:00 32 105/73 Mechanical Ventilator 55 07/25/20 04:00 97 32 105/73 (84) 100 07/25/20 04:00 Mechanical Ventilator Mechanical Ventilator Mechanical Ventilator 07/25/20 03:30 97 31 106/68 (81) 100 07/25/20 03:20 97 29 55 07/25/20 03:00 28 94/58 Mechanical Ventilator 55 07/25/20 03:00 28 94/58 Mechanical Ventilator 55 07/25/20 03:00 92 28 94/58 (70) 100 07/25/20 02:30 94 27 103/66 (78) 100 07/25/20 02:00 28 101/64 Mechanical Ventilator 55 07/25/20 02:00 28 101/64 Mechanical Ventilator 55 07/25/20 02:00 93 28 101/64 (76) 100 07/25/20 01:30 93 31 99/67 (78) 100 07/25/20 01:00 27 98/66 Mechanical Ventilator 55 07/25/20 01:00 27 98/66 Mechanical Ventilator 55 07/25/20 01:00 98.5 93 27 98/66 (77) 100 07/25/20 00:30 92 28 93/63 (73) 100 07/25/20 00:00 29 94/63 Mechanical Ventilator 55 07/25/20 00:00 29 94/63 Mechanical Ventilator 55 07/25/20 00:00 55 07/25/20 00:00 92 07/25/20 00:00 Mechanical Ventilator Mechanical Ventilator Mechanical Ventilator 07/25/20 00:00 92 29 94/63 (73) 100 07/24/20 23:30 91 30 89/55 (66) 100 07/24/20 23:20 97 27 55 07/24/20 23:00 93 26 94/60 (71) 100 07/24/20 23:00 26 94/60 Mechanical Ventilator 55 07/24/20 23:00 26 94/60 Mechanical Ventilator 55 07/24/20 22:30 93 26 92/65 (74) 100 07/24/20 22:00 28 98/61 Mechanical Ventilator 55 07/24/20 22:00 28 98/61 Mechanical Ventilator 55 07/24/20 22:00 95 28 98/61 (73) 100 07/24/20 21:30 95 28 91/61 (71) 100 07/24/20 21:29 102 24 55 07/24/20 21:00 28 94/64 Mechanical Ventilator 55 07/24/20 21:00 28 94/64 Mechanical Ventilator 55 07/24/20 21:00 94 28 94/64 (74) 100 07/24/20 20:30 93 31 99/64 (76) 100 07/24/20 20:00 98.7 99 25 94/63 (73) 100 07/24/20 20:00 99 07/24/20 20:00 Mechanical Ventilator Mechanical Ventilator Mechanical Ventilator 07/24/20 20:00 25 94/63 Mechanical Ventilator 55 07/24/20 20:00 25 94/63 Mechanical Ventilator 55 07/24/20 20:00 55 07/24/20 19:00 94 27 55 07/24/20 19:00 102 30 96/68 (77) 100 07/24/20 19:00 27 96/68 Mechanical Ventilator 55 07/24/20 19:00 26 96/68 Mechanical Ventilator 55 07/24/20 18:45 102 30 100/68 (79) 100 07/24/20 18:30 104 31 96/69 (78) 100 07/24/20 18:15 108 43 109/69 (82) 98 07/24/20 18:00 27 105/71 Mechanical Ventilator 55 07/24/20 18:00 26 105/71 Mechanical Ventilator 55 07/24/20 18:00 103 30 105/71 (82) 99 07/24/20 17:54 26 109/73 Mechanical Ventilator 55 07/24/20 17:45 101 23 112/69 (83) 100 07/24/20 17:30 99 25 104/72 (83) 100 07/24/20 17:15 99 26 109/69 (82) 100 07/24/20 17:00 28 108/71 Mechanical Ventilator 55 07/24/20 17:00 28 108/71 Mechanical Ventilator 65 07/24/20 17:00 104 28 108/71 (83) 99 07/24/20 16:45 98 26 110/68 (82) 100 07/24/20 16:30 100 22 105/70 (82) 100 07/24/20 16:15 100 9 105/70 (82) 100 07/24/20 16:00 100.2 103 24 104/74 (84) 100 07/24/20 16:00 Mechanical Ventilator Mechanical Ventilator Mechanical Ventilator 07/24/20 16:00 26 104/74 Mechanical Ventilator 55 07/24/20 16:00 26 104/74 Mechanical Ventilator 65 07/24/20 16:00 55 07/24/20 16:00 102 07/24/20 15:45 104 18 104/67 (79) 100 07/24/20 15:30 103 11 110/73 (85) 100 07/24/20 15:15 112 37 127/79 (95) 100 07/24/20 15:00 104 28 130/70 (90) 100 07/24/20 15:00 31 131/88 Mechanical Ventilator 55 07/24/20 15:00 31 131/88 Mechanical Ventilator 55 07/24/20 14:45 119 33 120/105 (110) 88 07/24/20 14:40 117 38 55 07/24/20 14:30 110 39 119/70 (86) 97 07/24/20 14:15 115 36 106/79 (88) 92 07/24/20 14:00 113 30 118/83 (95) 96 07/24/20 14:00 31 118/83 Mechanical Ventilator 45 07/24/20 14:00 31 118/83 Mechanical Ventilator 45 07/24/20 13:30 113 41 131/70 (90) 92 07/24/20 13:15 109 31 123/76 (92) 95 07/24/20 13:00 98 14 141/87 (105) 100 07/24/20 13:00 31 141/87 Mechanical Ventilator 45 07/24/20 13:00 31 141/87 Mechanical Ventilator 45 07/24/20 12:45 96 18 133/93 (106) 99 07/24/20 12:30 108 31 121/80 (94) 97 07/24/20 12:15 97 31 115/73 (87) 99 07/24/20 12:07 104/69 07/24/20 12:00 98.9 105 40 116/71 (86) 87 07/24/20 12:00 99 07/24/20 12:00 Mechanical Ventilator Mechanical Ventilator Mechanical Ventilator 07/24/20 12:00 28 116/71 Mechanical Ventilator 45 07/24/20 12:00 28 116/71 Mechanical Ventilator 45 07/24/20 12:00 45 07/24/20 11:54 107 20 84 07/24/20 11:53 104 20 87 07/24/20 11:45 105 29 105/76 (86) 96 Intake and Output 07/24/20 07/25/20 19:00 07:00 Intake Total 1080 ml 695.0 ml Output Total 1140 ml 480 ml Balance -60 ml 215.0 ml IV Total 1080 ml 695.0 ml Output Urine Total 1035 ml 480 ml Chest Tube Drainage Total 105 ml 0 ml General Appearance: no acute distress HEENT: normocephalic, status post trach Respiratory: chest wall non-tender Cardiovascular: normal peripheral pulses Abdomen: normal bowel sounds, other - s/p PEG Laboratory Tests 07/25/20 04:06: White Blood Count 11.1H, Red Blood Count 2.80L, Hemoglobin 7.9L, Hematocrit 25.7L, Mean Corpuscular Volume 92, Mean Corpuscular Hemoglobin 28.4, Mean Corpuscular Hemoglobin Concent 30.9L, Red Cell Distribution Width 16.9H, Platelet Count 258, Mean Platelet Volume 7.4, Neutrophils (%) (Auto) , Lymphocytes (%) (Auto) , Monocytes (%) (Auto) , Eosinophils (%) (Auto) , Basophils (%) (Auto) , Differential Total Cells Counted 100, Neutrophils % (Manual) 57, Lymphocytes % (Manual) 26, Monocytes % (Manual) 9, Eosinophils % (Manual) 8H, Basophils % (Manual) 0, Band Neutrophils 0, Platelet Estimate Adequate, Platelet Morphology Normal, Polychromasia 1+, Hypochromasia 1+, Anisocytosis 1+, Stomatocytes Occasional, Sodium Level 138, Potassium Level 3.8, Chloride Level 102, Carbon Dioxide Level 34H, Anion Gap 3L, Blood Urea Nitrogen 10, Creatinine 0.5L, Estimat Glomerular Filtration Rate > 60, Glucose Level 106, Calcium Level 8.6, Total Bilirubin 0.4, Aspartate Amino Transf (AST/SGOT) 27, Alanine Aminotransferase (ALT/SGPT) 22, Alkaline Phosphatase 63, Total Protein 6.2L, Albumin 2.2L, Globulin 4.0, Albumin/Globulin Ratio 0.6L Current Medications Medications (Trade) Dose Ordered Sig/Zelda Route PRN Reason Start Time Stop Time Status Last Admin Dose Admin Acetaminophen (Tylenol) 650 mg Q4H PRN NG Temp >100.5 06/29/20 10:15 07/29/20 10:14 07/24/20 09:04 Acetaminophen (Tylenol) 650 mg Q6H PRN NG Mild Pain (Pain Scale 1-3) 06/29/20 10:15 07/29/20 10:14 07/22/20 11:56 Albumin Human 500 ml @ 0 mls/hr Q0M IV 07/25/20 11:15 07/25/20 23:59 07/25/20 11:29 Calcitonin [place] (Miacalcin) 1 sprays DAILY NASAL 07/22/20 14:00 10/20/20 13:59 07/25/20 10:22 Chlorhexidine Gluconate (Inna-Hex 2%) 1 applic DAILY@2000 TOPIC 07/20/20 20:00 10/18/20 19:59 07/24/20 20:02 Dextrose (Dextrose 50%) 25 ml Q30M PRN IV Hypoglycemia 06/05/20 10:45 09/03/20 10:44 Dextrose (Dextrose 50%) 50 ml Q30M PRN IV Hypoglycemia 06/05/20 10:45 09/03/20 10:44 Dextrose/Sodium Chloride 1,000 ml @ 50 mls/hr Q20H IV 07/25/20 11:15 08/24/20 11:14 07/25/20 11:28 Enoxaparin Sodium (Lovenox) 110 mg EVERY 12 HOURS SUBQ 07/17/20 21:00 10/15/20 20:59 07/23/20 20:19 Fentanyl Citrate 250 ml @ 1 mls/hr Q24H IV 07/25/20 05:00 07/27/20 04:59 07/25/20 05:00 Guaifenesin/ Codeine Phosphate (Robitussin with codeine) 5 ml Q6H PRN NG For Cough 07/14/20 14:15 08/13/20 14:14 07/18/20 21:44 Heparin Sodium/ Sodium Chloride (Heparin 1000 units/500ml Premix) 1,000 unit ONCE PRN INJ radiology use 07/24/20 12:30 07/26/20 12:29 Lansoprazole (Prevacid) 30 mg DAILY GT 07/18/20 09:00 08/09/20 08:59 07/24/20 08:48 Lidocaine HCl (Xylocaine 1% 30ml) 30 ml ONCE PRN INJ radiology use 07/24/20 12:30 07/26/20 12:29 Meropenem 1 gm/ Sodium Chloride 55 ml @ 110 mls/hr Q8H IVPB 07/22/20 12:00 07/27/20 11:59 07/25/20 11:31 Midazolam HCl 200 ml @ 0 mls/hr Q24H PRN IV sedation 07/22/20 14:06 07/29/20 14:05 07/25/20 10:00 Midodrine (Pro-Amatine) 10 mg Q8HR GT 06/30/20 14:00 09/12/20 13:59 07/24/20 05:22 Norepinephrine Bitartrate 8 mg/ Dextrose 250 ml @ 0 mls/hr Q24H IV 07/22/20 13:00 07/25/20 12:59 07/23/20 04:08 Quetiapine Fumarate (SEROqueL) 50 mg Q12HR GT 07/16/20 13:30 08/30/20 13:29 07/24/20 08:48 Assessment/Plan Assessment/Plan 1. COVID-19 pneumonia -Intubated 05/28/20 - We will continue broad-spectrum antibiotics. -s/p solumedrol, Rocephin -Continue PEEP 6 ->7 ->5 - Peak airway pressures better - FiO2 100% -> 90 ->80->60 ->40 ->80 ->100 ->70 ->60 -> 50 ->45 ->40 ->50 ->40%; PEEP 7 ->5 - s/p PEG 2. Hyponatremia -Per primary MD 3. Elevated inflammatory markers - has high D dimer; On Lovenox 4. DVT of the right calf - once stable, consider IVC filter per heme vs oral DOAC 5. Decreased PEEP S/p trach Reported cuff leak per RN/RT Changed 07/22/20 however still has cuff leak On low dose Levophed; will attempt to wean off Will wean off IV sedation; started Seroquel s/p PEG Required R CT due to PTX 07/22/20 - plan for removal of CT tomorrow per surgery The care for this patient was discussed with my supervising physician Time spent for this case was approximately 31 minutes Vamshi Garcia Jul 25, 2020 11:46
--- NOTE | 2020-07-25 12:54 | NUR ---
0715: Assumed care of pt from RAKEL Hooker. Pt remains trach to vent and sedated. Pt remains with R chest tube which is water sealed. VSS. Pt in NAD. Will continue to monitor. 0945: Dr. Devine at bedside. Plans to d/c R chest tube tomorrow. 1015: ZULLY Garcia at bedside. No new orders at this time. 1200: Pt in NAD. VSS at this time. Chest tube remains patent and intact. PEG remains intact with no complications. 1300: [facility] called and was updated on pt status.
--- NOTE | 2020-07-25 13:26 | General Progress Note ---
Subjective ROS Limited/Unobtainable: No Allergies: Coded Allergies: No Known Allergies (Unverified , 05/28/20) Objective Last 24 Hour Vital Signs Date Time Temp Pulse Resp B/P (MAP) Pulse Ox O2 Delivery O2 Flow Rate FiO2 07/25/20 13:00 100 32 91/57 (68) 100 07/25/20 12:30 94 27 98/59 (72) 100 07/25/20 12:15 98 34 93/63 (73) 100 07/25/20 12:00 100.0 98 31 95/60 (72) 100 07/25/20 12:00 Mechanical Ventilator Mechanical Ventilator Mechanical Ventilator 07/25/20 12:00 100 07/25/20 12:00 55 07/25/20 12:00 27 95/60 Mechanical Ventilator 55 07/25/20 12:00 26 95/60 Mechanical Ventilator 55 07/25/20 11:45 96 29 92/54 (67) 100 07/25/20 11:35 99 32 55 07/25/20 11:30 98 33 92/56 (68) 100 07/25/20 11:15 97 23 88/54 (65) 100 07/25/20 11:00 97 21 89/54 (66) 100 07/25/20 11:00 29 100/58 Mechanical Ventilator 55 07/25/20 11:00 29 100/58 Mechanical Ventilator 55 07/25/20 10:45 100 25 100/58 (72) 100 07/25/20 10:30 100 27 102/62 (75) 100 07/25/20 10:15 96 33 99/60 (73) 100 07/25/20 10:00 29 93/54 Mechanical Ventilator 55 07/25/20 10:00 26 99/60 Mechanical Ventilator 55 07/25/20 10:00 96 23 93/60 (71) 100 07/25/20 09:15 96 30 90/56 (67) 100 07/25/20 09:00 29 93/54 Mechanical Ventilator 55 07/25/20 09:00 29 93/54 Mechanical Ventilator 55 07/25/20 09:00 96 31 93/54 (67) 100 07/25/20 08:45 97 34 93/58 (70) 100 07/25/20 08:30 97 38 94/55 (68) 100 07/25/20 08:15 98 6 95/56 (69) 100 07/25/20 08:00 55 07/25/20 08:00 100.0 100 23 95/60 (72) 100 07/25/20 08:00 98 07/25/20 08:00 22 95/60 Mechanical Ventilator 55 07/25/20 08:00 26 95/60 Mechanical Ventilator 55 07/25/20 08:00 Mechanical Ventilator Mechanical Ventilator Mechanical Ventilator 07/25/20 07:45 97 27 97/57 (70) 100 07/25/20 07:34 97 25 55 07/25/20 07:30 98 27 95/59 (71) 100 07/25/20 07:15 97 26 96/56 (69) 100 07/25/20 07:00 24 101/63 Mechanical Ventilator 55 07/25/20 07:00 24 101/63 Mechanical Ventilator 55 07/25/20 07:00 99 24 101/63 (76) 100 07/25/20 06:30 99 24 98/61 (73) 100 07/25/20 06:30 96 24 07/25/20 06:15 22 104/70 Mechanical Ventilator 55 07/25/20 06:15 105 22 104/70 (81) 100 07/25/20 06:00 30 102/67 55 07/25/20 06:00 30 102/67 Mechanical Ventilator 55 07/25/20 06:00 99 30 102/67 (79) 100 07/25/20 05:45 94 25 97/56 (70) 100 07/25/20 05:45 25 97/56 Mechanical Ventilator 55 07/25/20 05:30 31 96/57 Mechanical Ventilator 55 07/25/20 05:30 95 31 96/57 (70) 100 07/25/20 05:15 96 24 97/57 (70) 100 07/25/20 05:15 14 97/57 Mechanical Ventilator 55 07/25/20 05:00 95 28 96/58 (71) 100 07/25/20 05:00 30 96/58 Mechanical Ventilator 55 07/25/20 05:00 30 96/58 Mechanical Ventilator 55 07/25/20 04:55 98 27 55 07/25/20 04:30 95 28 89/53 (65) 100 07/25/20 04:00 97 07/25/20 04:00 55 07/25/20 04:00 32 105/73 Mechanical Ventilator 55 07/25/20 04:00 32 105/73 Mechanical Ventilator 55 07/25/20 04:00 97 32 105/73 (84) 100 07/25/20 04:00 Mechanical Ventilator Mechanical Ventilator Mechanical Ventilator 07/25/20 03:30 97 31 106/68 (81) 100 07/25/20 03:20 97 29 55 07/25/20 03:00 28 94/58 Mechanical Ventilator 55 07/25/20 03:00 28 94/58 Mechanical Ventilator 55 07/25/20 03:00 92 28 94/58 (70) 100 07/25/20 02:30 94 27 103/66 (78) 100 07/25/20 02:00 28 101/64 Mechanical Ventilator 55 07/25/20 02:00 28 101/64 Mechanical Ventilator 55 07/25/20 02:00 93 28 101/64 (76) 100 07/25/20 01:30 93 31 99/67 (78) 100 07/25/20 01:00 27 98/66 Mechanical Ventilator 55 07/25/20 01:00 27 98/66 Mechanical Ventilator 55 07/25/20 01:00 98.5 93 27 98/66 (77) 100 07/25/20 00:30 92 28 93/63 (73) 100 07/25/20 00:00 29 94/63 Mechanical Ventilator 55 07/25/20 00:00 29 94/63 Mechanical Ventilator 55 07/25/20 00:00 55 07/25/20 00:00 92 07/25/20 00:00 Mechanical Ventilator Mechanical Ventilator Mechanical Ventilator 07/25/20 00:00 92 29 94/63 (73) 100 07/24/20 23:30 91 30 89/55 (66) 100 07/24/20 23:20 97 27 55 07/24/20 23:00 93 26 94/60 (71) 100 07/24/20 23:00 26 94/60 Mechanical Ventilator 55 07/24/20 23:00 26 94/60 Mechanical Ventilator 55 07/24/20 22:30 93 26 92/65 (74) 100 07/24/20 22:00 28 98/61 Mechanical Ventilator 55 07/24/20 22:00 28 98/61 Mechanical Ventilator 55 07/24/20 22:00 95 28 98/61 (73) 100 3/3/21 21:30 95 28 91/61 (71) 100 07/24/20 21:29 102 24 55 07/24/20 21:00 28 94/64 Mechanical Ventilator 55 07/24/20 21:00 28 94/64 Mechanical Ventilator 55 07/24/20 21:00 94 28 94/64 (74) 100 07/24/20 20:30 93 31 99/64 (76) 100 07/24/20 20:00 98.7 99 25 94/63 (73) 100 07/24/20 20:00 99 07/24/20 20:00 Mechanical Ventilator Mechanical Ventilator Mechanical Ventilator 07/24/20 20:00 25 94/63 Mechanical Ventilator 55 07/24/20 20:00 25 94/63 Mechanical Ventilator 55 07/24/20 20:00 55 07/24/20 19:00 94 27 55 07/24/20 19:00 102 30 96/68 (77) 100 07/24/20 19:00 27 96/68 Mechanical Ventilator 55 07/24/20 19:00 26 96/68 Mechanical Ventilator 55 07/24/20 18:45 102 30 100/68 (79) 100 07/24/20 18:30 104 31 96/69 (78) 100 07/24/20 18:15 108 43 109/69 (82) 98 07/24/20 18:00 27 105/71 Mechanical Ventilator 55 07/24/20 18:00 26 105/71 Mechanical Ventilator 55 07/24/20 18:00 103 30 105/71 (82) 99 07/24/20 17:54 26 109/73 Mechanical Ventilator 55 07/24/20 17:45 101 23 112/69 (83) 100 07/24/20 17:30 99 25 104/72 (83) 100 07/24/20 17:15 99 26 109/69 (82) 100 07/24/20 17:00 28 108/71 Mechanical Ventilator 55 07/24/20 17:00 28 108/71 Mechanical Ventilator 65 07/24/20 17:00 104 28 108/71 (83) 99 07/24/20 16:45 98 26 110/68 (82) 100 07/24/20 16:30 100 22 105/70 (82) 100 07/24/20 16:15 100 9 105/70 (82) 100 07/24/20 16:00 100.2 103 24 104/74 (84) 100 07/24/20 16:00 Mechanical Ventilator Mechanical Ventilator Mechanical Ventilator 07/24/20 16:00 26 104/74 Mechanical Ventilator 55 07/24/20 16:00 26 104/74 Mechanical Ventilator 65 07/24/20 16:00 55 07/24/20 16:00 102 07/24/20 15:45 104 18 104/67 (79) 100 07/24/20 15:30 103 11 110/73 (85) 100 07/24/20 15:15 112 37 127/79 (95) 100 07/24/20 15:00 104 28 130/70 (90) 100 07/24/20 15:00 31 131/88 Mechanical Ventilator 55 07/24/20 15:00 31 131/88 Mechanical Ventilator 55 07/24/20 14:45 119 33 120/105 (110) 88 07/24/20 14:40 117 38 55 07/24/20 14:30 110 39 119/70 (86) 97 07/24/20 14:15 115 36 106/79 (88) 92 07/24/20 14:00 113 30 118/83 (95) 96 07/24/20 14:00 31 118/83 Mechanical Ventilator 45 07/24/20 14:00 31 118/83 Mechanical Ventilator 45 07/24/20 13:30 113 41 131/70 (90) 92 Intake and Output 07/24/20 07/25/20 19:00 07:00 Intake Total 1080 ml 695.0 ml Output Total 1140 ml 480 ml Balance -60 ml 215.0 ml IV Total 1080 ml 695.0 ml Output Urine Total 1035 ml 480 ml Chest Tube Drainage Total 105 ml 0 ml Laboratory Tests 07/25/20 04:06: White Blood Count 11.1H, Red Blood Count 2.80L, Hemoglobin 7.9L, Hematocrit 25.7L, Mean Corpuscular Volume 92, Mean Corpuscular Hemoglobin 28.4, Mean Corpuscular Hemoglobin Concent 30.9L, Red Cell Distribution Width 16.9H, Platelet Count 258, Mean Platelet Volume 7.4, Neutrophils (%) (Auto) , Lymphocytes (%) (Auto) , Monocytes (%) (Auto) , Eosinophils (%) (Auto) , Basophils (%) (Auto) , Differential Total Cells Counted 100, Neutrophils % (Manual) 57, Lymphocytes % (Manual) 26, Monocytes % (Manual) 9, Eosinophils % (Manual) 8H, Basophils % (Manual) 0, Band Neutrophils 0, Platelet Estimate Adequate, Platelet Morphology Normal, Polychromasia 1+, Hypochromasia 1+, Anisocytosis 1+, Stomatocytes Occasional, Sodium Level 138, Potassium Level 3.8, Chloride Level 102, Carbon Dioxide Level 34H, Anion Gap 3L, Blood Urea Nitrogen 10, Creatinine 0.5L, Estimat Glomerular Filtration Rate > 60, Glucose Level 106, Calcium Level 8.6, Total Bilirubin 0.4, Aspartate Amino Transf (AST/SGOT) 27, Alanine Aminotransferase (ALT/SGPT) 22, Alkaline Phosphatase 63, Total Protein 6.2L, Albumin 2.2L, Globulin 4.0, Albumin/Globulin Ratio 0.6L Height (Feet): 5 Height (Inches): 5.00 Weight (Pounds): 223 General Appearance: no apparent distress EENT: normal ENT inspection Neck: supple Cardiovascular: normal rate Respiratory/Chest: decreased breath sounds Abdomen: normal bowel sounds, non tender, soft Extremities: non-tender Assessment/Plan Problem List: (1) Morbid obesity ICD Codes: E66.01 - Morbid (severe) obesity due to excess calories SNOMED: 095787097 (2) DEVENDRA (acute kidney injury) ICD Codes: N17.9 - Acute kidney failure, unspecified SNOMED: 9148091, 71667593 (3) Diabetes mellitus out of control ICD Codes: E11.65 - Type 2 diabetes mellitus with hyperglycemia SNOMED: 76923389, 372762492 (4) Pneumonia due to COVID-19 virus ICD Codes: U07.1 - COVID-19; J12.82 - Pneumonia due to coronavirus disease 2019 SNOMED: 138240116220016642 (5) Hypoxia ICD Codes: R09.02 - Hypoxemia SNOMED: 671436621 (6) Respiratory failure ICD Codes: J96.90 - Respiratory failure, unspecified, unspecified whether with hypoxia or hypercapnia SNOMED: 537112877 Status: unchanged Assessment/Plan: s/p PEG ordered KUBB plan GTF if no SBO Ryan Strong MD Jul 25, 2020 13:26
--- NOTE | 2020-07-25 13:39 | General Progress Note ---
Subjective Allergies: Coded Allergies: No Known Allergies (Unverified , 05/28/20) All Systems: reviewed and negative except above Subjective trach vent peg chest tube in icu Objective Last 24 Hour Vital Signs Date Time Temp Pulse Resp B/P (MAP) Pulse Ox O2 Delivery O2 Flow Rate FiO2 07/25/20 13:00 100 32 91/57 (68) 100 07/25/20 12:30 94 27 98/59 (72) 100 07/25/20 12:15 98 34 93/63 (73) 100 07/25/20 12:00 100.0 98 31 95/60 (72) 100 07/25/20 12:00 Mechanical Ventilator Mechanical Ventilator Mechanical Ventilator 07/25/20 12:00 100 07/25/20 12:00 55 07/25/20 12:00 27 95/60 Mechanical Ventilator 55 07/25/20 12:00 26 95/60 Mechanical Ventilator 55 07/25/20 11:45 96 29 92/54 (67) 100 07/25/20 11:35 99 32 55 07/25/20 11:30 98 33 92/56 (68) 100 07/25/20 11:15 97 23 88/54 (65) 100 07/25/20 11:00 97 21 89/54 (66) 100 07/25/20 11:00 29 100/58 Mechanical Ventilator 55 07/25/20 11:00 29 100/58 Mechanical Ventilator 55 07/25/20 10:45 100 25 100/58 (72) 100 07/25/20 10:30 100 27 102/62 (75) 100 07/25/20 10:15 96 33 99/60 (73) 100 07/25/20 10:00 29 93/54 Mechanical Ventilator 55 07/25/20 10:00 26 99/60 Mechanical Ventilator 55 07/25/20 10:00 96 23 93/60 (71) 100 07/25/20 09:15 96 30 90/56 (67) 100 07/25/20 09:00 29 93/54 Mechanical Ventilator 55 07/25/20 09:00 29 93/54 Mechanical Ventilator 55 07/25/20 09:00 96 31 93/54 (67) 100 07/25/20 08:45 97 34 93/58 (70) 100 07/25/20 08:30 97 38 94/55 (68) 100 07/25/20 08:15 98 6 95/56 (69) 100 07/25/20 08:00 55 07/25/20 08:00 100.0 100 23 95/60 (72) 100 07/25/20 08:00 98 07/25/20 08:00 22 95/60 Mechanical Ventilator 55 07/25/20 08:00 26 95/60 Mechanical Ventilator 55 07/25/20 08:00 Mechanical Ventilator Mechanical Ventilator Mechanical Ventilator 07/25/20 07:45 97 27 97/57 (70) 100 07/25/20 07:34 97 25 55 07/25/20 07:30 98 27 95/59 (71) 100 07/25/20 07:15 97 26 96/56 (69) 100 07/25/20 07:00 24 101/63 Mechanical Ventilator 55 07/25/20 07:00 24 101/63 Mechanical Ventilator 55 07/25/20 07:00 99 24 101/63 (76) 100 07/25/20 06:30 99 24 98/61 (73) 100 07/25/20 06:30 96 24 07/25/20 06:15 22 104/70 Mechanical Ventilator 55 07/25/20 06:15 105 22 104/70 (81) 100 07/25/20 06:00 30 102/67 55 07/25/20 06:00 30 102/67 Mechanical Ventilator 55 07/25/20 06:00 99 30 102/67 (79) 100 07/25/20 05:45 94 25 97/56 (70) 100 07/25/20 05:45 25 97/56 Mechanical Ventilator 55 07/25/20 05:30 31 96/57 Mechanical Ventilator 55 07/25/20 05:30 95 31 96/57 (70) 100 07/25/20 05:15 96 24 97/57 (70) 100 07/25/20 05:15 14 97/57 Mechanical Ventilator 55 07/25/20 05:00 95 28 96/58 (71) 100 07/25/20 05:00 30 96/58 Mechanical Ventilator 55 07/25/20 05:00 30 96/58 Mechanical Ventilator 55 07/25/20 04:55 98 27 55 07/25/20 04:30 95 28 89/53 (65) 100 07/25/20 04:00 97 07/25/20 04:00 55 07/25/20 04:00 32 105/73 Mechanical Ventilator 55 07/25/20 04:00 32 105/73 Mechanical Ventilator 55 07/25/20 04:00 97 32 105/73 (84) 100 07/25/20 04:00 Mechanical Ventilator Mechanical Ventilator Mechanical Ventilator 07/25/20 03:30 97 31 106/68 (81) 100 07/25/20 03:20 97 29 55 07/25/20 03:00 28 94/58 Mechanical Ventilator 55 07/25/20 03:00 28 94/58 Mechanical Ventilator 55 07/25/20 03:00 92 28 94/58 (70) 100 07/25/20 02:30 94 27 103/66 (78) 100 07/25/20 02:00 28 101/64 Mechanical Ventilator 55 07/25/20 02:00 28 101/64 Mechanical Ventilator 55 07/25/20 02:00 93 28 101/64 (76) 100 07/25/20 01:30 93 31 99/67 (78) 100 07/25/20 01:00 27 98/66 Mechanical Ventilator 55 07/25/20 01:00 27 98/66 Mechanical Ventilator 55 07/25/20 01:00 98.5 93 27 98/66 (77) 100 07/25/20 00:30 92 28 93/63 (73) 100 07/25/20 00:00 29 94/63 Mechanical Ventilator 55 07/25/20 00:00 29 94/63 Mechanical Ventilator 55 07/25/20 00:00 55 07/25/20 00:00 92 07/25/20 00:00 Mechanical Ventilator Mechanical Ventilator Mechanical Ventilator 07/25/20 00:00 92 29 94/63 (73) 100 07/24/20 23:30 91 30 89/55 (66) 100 07/24/20 23:20 97 27 55 07/24/20 23:00 93 26 94/60 (71) 100 07/24/20 23:00 26 94/60 Mechanical Ventilator 55 07/24/20 23:00 26 94/60 Mechanical Ventilator 55 07/24/20 22:30 93 26 92/65 (74) 100 07/24/20 22:00 28 98/61 Mechanical Ventilator 55 07/24/20 22:00 28 98/61 Mechanical Ventilator 55 07/24/20 22:00 95 28 98/61 (73) 100 07/24/20 21:30 95 28 91/61 (71) 100 07/24/20 21:29 102 24 55 07/24/20 21:00 28 94/64 Mechanical Ventilator 55 07/24/20 21:00 28 94/64 Mechanical Ventilator 55 07/24/20 21:00 94 28 94/64 (74) 100 07/24/20 20:30 93 31 99/64 (76) 100 07/24/20 20:00 98.7 99 25 94/63 (73) 100 07/24/20 20:00 99 07/24/20 20:00 Mechanical Ventilator Mechanical Ventilator Mechanical Ventilator 07/24/20 20:00 25 94/63 Mechanical Ventilator 55 07/24/20 20:00 25 94/63 Mechanical Ventilator 55 07/24/20 20:00 55 07/24/20 19:00 94 27 55 07/24/20 19:00 102 30 96/68 (77) 100 07/24/20 19:00 27 96/68 Mechanical Ventilator 55 07/24/20 19:00 26 96/68 Mechanical Ventilator 55 07/24/20 18:45 102 30 100/68 (79) 100 07/24/20 18:30 104 31 96/69 (78) 100 07/24/20 18:15 108 43 109/69 (82) 98 07/24/20 18:00 27 105/71 Mechanical Ventilator 55 07/24/20 18:00 26 105/71 Mechanical Ventilator 55 07/24/20 18:00 103 30 105/71 (82) 99 07/24/20 17:54 26 109/73 Mechanical Ventilator 55 07/24/20 17:45 101 23 112/69 (83) 100 07/24/20 17:30 99 25 104/72 (83) 100 07/24/20 17:15 99 26 109/69 (82) 100 07/24/20 17:00 28 108/71 Mechanical Ventilator 55 07/24/20 17:00 28 108/71 Mechanical Ventilator 65 07/24/20 17:00 104 28 108/71 (83) 99 07/24/20 16:45 98 26 110/68 (82) 100 07/24/20 16:30 100 22 105/70 (82) 100 07/24/20 16:15 100 9 105/70 (82) 100 07/24/20 16:00 100.2 103 24 104/74 (84) 100 07/24/20 16:00 Mechanical Ventilator Mechanical Ventilator Mechanical Ventilator 07/24/20 16:00 26 104/74 Mechanical Ventilator 55 07/24/20 16:00 26 104/74 Mechanical Ventilator 65 07/24/20 16:00 55 07/24/20 16:00 102 07/24/20 15:45 104 18 104/67 (79) 100 07/24/20 15:30 103 11 110/73 (85) 100 07/24/20 15:15 112 37 127/79 (95) 100 07/24/20 15:00 104 28 130/70 (90) 100 07/24/20 15:00 31 131/88 Mechanical Ventilator 55 07/24/20 15:00 31 131/88 Mechanical Ventilator 55 07/24/20 14:45 119 33 120/105 (110) 88 07/24/20 14:40 117 38 55 07/24/20 14:30 110 39 119/70 (86) 97 07/24/20 14:15 115 36 106/79 (88) 92 07/24/20 14:00 113 30 118/83 (95) 96 07/24/20 14:00 31 118/83 Mechanical Ventilator 45 07/24/20 14:00 31 118/83 Mechanical Ventilator 45 Intake and Output 07/24/20 07/25/20 19:00 07:00 Intake Total 1080 ml 695.0 ml Output Total 1140 ml 480 ml Balance -60 ml 215.0 ml IV Total 1080 ml 695.0 ml Output Urine Total 1035 ml 480 ml Chest Tube Drainage Total 105 ml 0 ml Laboratory Tests 07/25/20 04:06: White Blood Count 11.1H, Red Blood Count 2.80L, Hemoglobin 7.9L, Hematocrit 25.7L, Mean Corpuscular Volume 92, Mean Corpuscular Hemoglobin 28.4, Mean Corpuscular Hemoglobin Concent 30.9L, Red Cell Distribution Width 16.9H, Platelet Count 258, Mean Platelet Volume 7.4, Neutrophils (%) (Auto) , Lymphocytes (%) (Auto) , Monocytes (%) (Auto) , Eosinophils (%) (Auto) , Basophils (%) (Auto) , Differential Total Cells Counted 100, Neutrophils % (Manual) 57, Lymphocytes % (Manual) 26, Monocytes % (Manual) 9, Eosinophils % (Manual) 8H, Basophils % (Manual) 0, Band Neutrophils 0, Platelet Estimate Adequate, Platelet Morphology Normal, Polychromasia 1+, Hypochromasia 1+, Anisocytosis 1+, Stomatocytes Occasional, Sodium Level 138, Potassium Level 3.8, Chloride Level 102, Carbon Dioxide Level 34H, Anion Gap 3L, Blood Urea Nitrogen 10, Creatinine 0.5L, Estimat Glomerular Filtration Rate > 60, Glucose Level 106, Calcium Level 8.6, Total Bilirubin 0.4, Aspartate Amino Transf (AST/SGOT) 27, Alanine Aminotransferase (ALT/SGPT) 22, Alkaline Phosphatase 63, Total Protein 6.2L, Albumin 2.2L, Globulin 4.0, Albumin/Globulin Ratio 0.6L Height (Feet): 5 Height (Inches): 5.00 Weight (Pounds): 223 General Appearance: lethargic EENT: normal ENT inspection Neck: normal alignment Cardiovascular: normal peripheral pulses, normal rate, regular rhythm Respiratory/Chest: chest wall non-tender, lungs clear, normal breath sounds Abdomen: normal bowel sounds, non tender, soft Extremities: normal inspection Edema: no edema noted Arm (L), no edema noted Arm (R), no edema noted Leg (L), no edema noted Leg (R), no edema noted Pedal (L), no edema noted Pedal (R), no edema noted Generalized Neurologic: motor weakness Skin: normal pigmentation, warm/dry Assessment/Plan Problem List: (1) Hypoxia ICD Codes: R09.02 - Hypoxemia SNOMED: 876039577 (2) Respiratory failure ICD Codes: J96.90 - Respiratory failure, unspecified, unspecified whether with hypoxia or hypercapnia SNOMED: 587760899 (3) Respiratory distress ICD Codes: R06.03 - Acute respiratory distress; J12.82 - Pneumonia due to coronavirus disease 2019 SNOMED: 546256904 (4) Pneumonia due to COVID-19 virus ICD Codes: U07.1 - COVID-19; J12.82 - Pneumonia due to coronavirus disease 2019 SNOMED: 585402589137476504 Status: unchanged Assessment/Plan: vent abx id pulm f/u cbc bmp am Tank Del Cid DO Jul 25, 2020 13:39
--- NOTE | 2020-07-25 14:33 | Diagnostic Imaging Report ---
Indication: Dyspnea Technique: One view of the chest Comparison: 07/24/2020 Findings: Stable left arm PICC, right chest tube, and tracheostomy. Bilateral infiltrates are unchanged. No pneumothorax. Previously demonstrated pneumoperitoneum appears slightly decreased Impression: Slightly decreased pneumoperitoneum. 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
--- NOTE | 2020-07-25 14:43 | Diagnostic Imaging Report ---
Indication: Abdominal pain Technique: Supine view of the abdomen Comparison: 07/22/2020 Findings: Interim removal of nasogastric tube and placement of a gastrostomy. Previously reported pneumoperitoneum is barely visible on supine projection, manifested mainly by visualization of the falciform ligament and slight lucency in the upper abdomen. Interval marked improvement of previously demonstrated subcutaneous emphysema, with only a small amount visible in the left upper quadrant. The bowel gas pattern is unremarkable. Impression: Status post gastrostomy placement. Is a reported, on prior chest radiograph, pneumoperitoneum is more evident on chest radiographs Markedly improved subcutaneous emphysema, with some residual No evidence of bowel obstruction
--- NOTE | 2020-07-25 14:46 | NUR ---
RADIOLOGY DEPT., ABDOMEN X-RAY DONE.-P.DYE
--- NOTE | 2020-07-25 16:02 | NUR ---
1345: Spoke with Dr. Strong and per MD repeat KUB and if no bowel obstruction seen it is ok to start tube feedings at a low rate. 1600: KUB shows no bowel obstruction. Tube initiated at a rate of 15.
--- NOTE | 2020-07-25 19:17 | NUR ---
191: Report given to Nhung. All questions answered. Pt remains on fentanyl. Pt calm in NAD. VSS. R chest tube remains. Pt with tube feeds infusing. Care continues.
--- NOTE | 2020-07-25 19:30 | NUR ---
NURSE NOTES: Received patient from Guillaume RN. Pt is sedated and obtunded Patient noted to be trached with a Shiely 7. Vent settings : AC 15 TV400, FiO2 55% and Peep of 5. Current SpO2 is 100%. RR 20, patient is sedated with RASS score of -2. Peg-tube noted, CDI, okay to use it per Dr. Strong. R chest tube noted on low continuos suctioning. Plan to DC tomorrow. ROX PICC double lumen noted with Fentanyl@100mcgs/hr, and D5NS @75 ml/hr, CDI. Current vitals are stable. NSR monitor. Peripheral pulses noted equal bilaterally. Pedal pulses noted equal and bilateral. Safety measures observed and no acute distress noted. Will continue to monitor.
[2020-07-25] MEDS: Dyna-Hex 2% Top Sol 2oz TOPIC SCH (20:00)
--- NOTE | 2020-07-25 21:00 | NUR ---
NURSE NOTES: PM meds given. Turned and repositioned. Oral care provided.
[2020-07-26] VITALS (39 sets, daily range): BP systolic 91–122; BP diastolic 53–69
--- NOTE | 2020-07-26 | NUR ---
NURSE NOTES: Pt remains sedated and obtunded Patient noted to be trached with a Shiely 7. Vent settings : AC 15 TV400, FiO2 55% and Peep of 5. Current SpO2 is 100%. RR 20, patient is sedated with RASS score of -2. Peg-tube noted, CDI, okay to use it per Dr. Strong. R chest tube noted on low continuos suctioning. Plan to DC tomorrow. ROX PICC double lumen noted with Fentanyl@100mcgs/hr, and D5NS @100 ml/hr, CDI. Current vitals are stable. NSR monitor. Peripheral pulses noted equal bilaterally. Pedal pulses noted equal and bilateral. Safety measures observed and no acute distress noted. Will continue to monitor.
--- NOTE | 2020-07-26 03:00 | NUR ---
NURSE NOTES: AM care provided. Turned and repositioned. Oral cafe provided.
[2020-07-26] MEDS: Meropenem 1 GM in NS 55 ML IVPB SCH ×3 (04:00→20:00)
[2020-07-26 05:14] LABS: HEMATOCRIT 23.9 % (37.0-47.0); HEMOGLOBIN 7.5 G/DL (12.0-16.0); MEAN CORPUSCULAR VOLUME 92 FL (80-99); PLATELET COUNT 232 K/UL (150-450); WHITE BLOOD COUNT 8.8 K/UL (4.8-10.8)
[2020-07-26 05:49] LABS: ALANINE AMINOTRANSFERASE 18 U/L (12-78); ALBUMIN 2.3 G/DL (3.4-5.0); ALBUMIN/GLOBULIN RATIO 0.6 (1.0-2.7); ALKALINE PHOSPHATASE 63 U/L (46-116); ANION GAP 6 mmol/L (5-15); ASPARTATE AMINO TRANSFERASE 28 U/L (15-37); BILIRUBIN,TOTAL 0.4 MG/DL (0.2-1.0); BLOOD UREA NITROGEN 4 mg/dL (7-18); CALCIUM 8.1 MG/DL (8.5-10.1); CARBON DIOXIDE 33 MMOL/L (21-32); CHLORIDE 104 MMOL/L (98-107); CREATININE 0.4 MG/DL (0.55-1.30); POTASSIUM 3.7 MMOL/L (3.5-5.1); SODIUM 143 MMOL/L (136-145)
[2020-07-26 05:50] LABS: PHOSPHORUS 2.2 MG/DL (2.5-4.9)
[2020-07-26] MEDS: Midodrine 10mg tab GT SCH ×3 (05:58→22:00)
--- NOTE | 2020-07-26 06:35 | Hematology/Onc Progress Note ---
Assessment/Plan Assessment/Plan # Deep vein thrombosis of the right calf --> given onoing anemia and low plts --> consider ivc if bleeding--once stable, needs it placed --> once stable, for radiology and ivc filter placement # Thrombocytopenia is due to infection/underlying covid19+++ --> ABX ceftriaxone -->zosyn-->off --> on steriods likely cause of initial wbc --> per pulm --> plt 107->156-->192-->205 --> smear reviewed # Leukocytosis due to Pneumonia due to COVID-19 virus --> per pulm rx -> sp remdesivir --> wbc 11.9-->11-->21-->8.8 # Anemia due to chronic disease --> hgb goal is >7 --> transfuse prn --> ferritin is >1000 --> hold off on iron --> 10-->9.8->9-->8-->8.2->>7.1-->7.9->7.5 --> 1 unit prbc 07/24 # Elevated ddimer due to covid19++ --> duplex legs is negative --> underlying covid rx # Hypoxia -> due to covid19 --> steriods as needed # Hypoxemia --> rx same as above # Respiratory failure --> on vent/trach --> per pulm # Diabetes mellitus out of control --> hgb a1c goal <7 # Dysphagia --> s/p peg # Poor prognosis # Dvt ppx ivc filter once more stable Appreciate consultation and bowen RN Subjective HEENT: Reports: no symptoms, eye pain, blurred vision, tearing, double vision, ear pain, ear discharge, nose pain, nose congestion, throat pain, throat swelling, mouth pain, mouth swelling, other Allergies: Coded Allergies: No Known Allergies (Unverified , 05/28/20) All Systems: reviewed and negative except above Subjective 06/10 nv, on vent, with ogt, on fentanyl and versed, plt stable 06/11 nv, vent adjusted is on ogt, meds reviewed 06/12 nv, vent, meds noted, labs noted, no bleeding, hgb 10.4 06/13 nv, is on vent, meds reviewed, no bleeding, cbc reviewed 06/14 nv, on vent, tachy, labs reviewed, gross hematuria, febrile overnight, abx 06/17 nv, on vent, labs noted, no major changes, feeling better overnight 06/18 nv, meds reviewed, labs noted, no major events, hgb 8.6 06/19 nv, remains intubated, with fluids, labs reviewed, meds noted 06/20 nv, intubated remains on restraints, meds noted as well, as labs 06/21 nv, remains on vent, on restraints, meds reviewed, labs noted 06/22: covering Dr. Del Cid no acute events 06/23 sedated, on vent, nv, intubated, meds reviewed, versed 06/24 nv, on vent, no night sweats, no bleeding, remains in icu 06/25 nv, on vent, icu, meds noted, no bleeding, comfortable 06/26 nv, on versed, icu, weaning parameters, labs noted 06/27 nv, overnight fighting vent, as per pulm fentanyl on board 06/28 nv, on vent, labs reviewed, as per pulm, meds noted 06/30 nv, icu, labs pending, is on fentanyl, versed, no new changes 07/01 nv, icu, is on vent, labs pending, no new changes per rn 07/02 nv, icu is on vent, labs noted, hgb is stable 07/03 nv, icu, is on vent, potential trrach when stable, cbc reviewed 07/04 icu, nv, labs are noted, stable for trach today dw Rn Dl 07/05 icu, nv, on vent, with ng and picc in place, labs noted, s/p trach 07/07 icu, nv, on tv, no bleeding, labs noted, meds reviewed 07/08 icu, nv, on tv, labs reviewed, meds noted, no bleeding 07/09 icu, nv, meds noted, no bleeding, blood transfusion was completed 07/10 icu, nv, labs ntoed, no bleeding, hgb improved, hgb 7.8 07/11 icu, nv, labs reviewed, hgb is improved, for ivcf if stabilizes 07/12 icu, nv, labs reviewed, meds noted, no bleeding, remains on vent 07/13 icu, on vent, nv, no bleeding, labs reviewed, no major events, bowen rn 07/14 icu, on vent, nv, tolerating ngt feeds, dw Rn, meds reviewed 07/15 icu, on vent, trach, tolerating ngt, meds noted, no bleeding 07/16 icu, vent, labs are noted, with trach, is stable, hgb 9.2 07/17 icu, had a bm overnight, remains on vent with trach, labs noted 07/18 icu, nv, labs are ntoed, no bleeding, on trach, on levophed 07/20 nc, icu, meds noted, v/t, no bleeding, labs noted, on versed 07/21 nv, trach/vent, tube feeds on hold, labs reviewed, icu 07/22 nv, icu, bp remains high, on v/t, labs noted, no bleeding 07/23 nv, ct is in place, on v/t, meds reviewed, in icu, on LEVO 07/24 nv, ct with blood secretions, to get 1 unit prbc today, icu 07/25 icu, nv, trach/v, obtunded, sedated, no bleeding, bowen rn 07/26 icu, nv, v/t, with gt, remains obtunded, as well as sedated, labs noted Objective Objective Current Medications Medications (Trade) Dose Ordered Sig/Zelda Route PRN Reason Start Time Stop Time Status Last Admin Dose Admin Acetaminophen (Tylenol) 650 mg Q4H PRN NG Temp >100.5 06/29/20 10:15 07/29/20 10:14 07/24/20 09:04 Acetaminophen (Tylenol) 650 mg Q6H PRN NG Mild Pain (Pain Scale 1-3) 06/29/20 10:15 07/29/20 10:14 07/22/20 11:56 Calcitonin [place] (Miacalcin) 1 sprays DAILY NASAL 07/22/20 14:00 10/20/20 13:59 07/25/20 10:22 Chlorhexidine Gluconate (Inna-Hex 2%) 1 applic DAILY@1999 TOPIC 07/20/20 20:00 10/18/20 19:59 07/25/20 20:00 Dextrose (Dextrose 50%) 25 ml Q30M PRN IV Hypoglycemia 06/05/20 10:45 09/03/20 10:44 Dextrose (Dextrose 50%) 50 ml Q30M PRN IV Hypoglycemia 06/05/20 10:45 09/03/20 10:44 Dextrose/Sodium Chloride 1,000 ml @ 50 mls/hr Q20H IV 07/25/20 11:15 08/24/20 11:14 07/25/20 11:28 Enoxaparin Sodium (Lovenox) 110 mg EVERY 12 HOURS SUBQ 07/17/20 21:00 10/15/20 20:59 07/23/20 20:19 Fentanyl Citrate 250 ml @ 1 mls/hr Q24H IV 07/25/20 05:00 07/27/20 04:59 07/25/20 05:00 Guaifenesin/ Codeine Phosphate (Robitussin with codeine) 5 ml Q6H PRN NG For Cough 07/14/20 14:15 08/13/20 14:14 07/18/20 21:44 Heparin Sodium/ Sodium Chloride (Heparin 1000 units/500ml Premix) 1,000 unit ONCE PRN INJ radiology use 07/24/20 12:30 07/26/20 12:29 Lansoprazole (Prevacid) 30 mg DAILY GT 07/18/20 09:00 08/09/20 08:59 07/25/20 13:50 Lidocaine HCl (Xylocaine 1% 30ml) 30 ml ONCE PRN INJ radiology use 07/24/20 12:30 07/26/20 12:29 Meropenem 1 gm/ Sodium Chloride 55 ml @ 110 mls/hr Q8H IVPB 07/22/20 12:00 07/27/20 11:59 07/26/20 04:00 Midazolam HCl 200 ml @ 0 mls/hr Q24H PRN IV sedation 07/22/20 14:06 07/29/20 14:05 07/25/20 10:00 Midodrine (Pro-Amatine) 10 mg Q8HR GT 06/30/20 14:00 09/12/20 13:59 07/26/20 05:58 Quetiapine Fumarate (SEROqueL) 50 mg Q12HR GT 07/16/20 13:30 08/30/20 13:29 07/25/20 20:39 Last 24 Hour Vital Signs Date Time Temp Pulse Resp B/P (MAP) Pulse Ox O2 Delivery O2 Flow Rate FiO2 07/26/20 06:00 25 103/69 Mechanical Ventilator 50 07/26/20 06:00 25 103/69 Mechanical Ventilator 50 07/26/20 06:00 96 25 103/69 (80) 100 07/26/20 05:00 94 30 101/65 (77) 100 07/26/20 05:00 30 101/65 Mechanical Ventilator 50 07/26/20 05:00 30 101/65 Mechanical Ventilator 50 07/26/20 04:30 93 26 96/65 (75) 100 07/26/20 04:00 Mechanical Ventilator Mechanical Ventilator Mechanical Ventilator 07/26/20 04:00 96 25 96/68 (77) 100 07/26/20 04:00 96 07/26/20 04:00 25 96/68 Mechanical Ventilator 50 07/26/20 04:00 25 96/68 Mechanical Ventilator 50 07/26/20 04:00 50 07/26/20 03:42 92 30 50 07/26/20 03:30 93 32 96/59 (71) 100 07/26/20 03:00 91 28 94/63 (73) 100 07/26/20 03:00 28 94/63 Mechanical Ventilator 50 07/26/20 03:00 28 94/63 Mechanical Ventilator 50 07/26/20 02:30 94 30 96/61 (73) 100 07/26/20 02:00 92 28 98/61 (73) 100 07/26/20 02:00 28 98/61 Mechanical Ventilator 50 07/26/20 02:00 28 98/61 Mechanical Ventilator 50 07/26/20 01:30 93 33 50 07/26/20 01:30 91 30 103/64 (77) 100 07/26/20 01:00 91 28 96/60 (72) 100 07/26/20 01:00 28 96/60 Mechanical Ventilator 50 07/26/20 01:00 28 96/60 Mechanical Ventilator 50 07/26/20 01:00 28 96/60 Mechanical Ventilator 50 07/26/20 01:00 28 96/60 Mechanical Ventilator 50 07/26/20 00:00 50 07/26/20 00:00 91 30 97/62 (74) 100 07/26/20 00:00 91 07/26/20 00:00 30 97/62 Mechanical Ventilator 50 07/26/20 00:00 30 97/62 Mechanical Ventilator 50 07/26/20 00:00 Mechanical Ventilator Mechanical Ventilator Mechanical Ventilator 07/25/20 23:30 92 28 97/63 (74) 100 07/25/20 23:24 93 30 50 07/25/20 23:00 98 30 100/61 (74) 100 07/25/20 23:00 30 100/61 Mechanical Ventilator 50.0 07/25/20 22:30 101 30 97/60 (72) 99 07/25/20 22:00 104 31 97/59 (72) 100 07/25/20 22:00 31 97/59 Mechanical Ventilator 40 07/25/20 21:30 102 29 97/60 (72) 99 07/25/20 21:24 97 30 50 07/25/20 21:00 30 98/64 Mechanical Ventilator 50.0 07/25/20 21:00 101 30 98/64 (75) 99 07/25/20 20:45 100 28 95/58 (70) 98 07/25/20 20:45 28 95/58 Mechanical Ventilator 50 07/25/20 20:30 102 35 101/65 (77) 99 07/25/20 20:30 35 101/65 Mechanical Ventilator 50 07/25/20 20:15 103 29 104/63 (77) 100 07/25/20 20:15 29 104/63 Mechanical Ventilator 50 07/25/20 20:00 Mechanical Ventilator Mechanical Ventilator Mechanical Ventilator 07/25/20 20:00 102 33 105/65 (78) 100 07/25/20 20:00 33 105/65 Mechanical Ventilator 50 07/25/20 20:00 33 105/65 Mechanical Ventilator 50 07/25/20 19:30 100 31 94/61 (72) 100 07/25/20 19:27 100 32 50 07/25/20 19:00 104 29 102/68 (79) 100 07/25/20 19:00 30 102/68 Mechanical Ventilator 50 07/25/20 18:45 92 27 91/57 (68) 100 07/25/20 18:30 90 26 93/63 (73) 100 07/25/20 18:15 91 26 91/58 (69) 100 07/25/20 18:00 28 91/58 Mechanical Ventilator 50 07/25/20 18:00 88 29 87/55 (66) 100 07/25/20 17:45 92 28 91/59 (70) 100 07/25/20 17:30 93 28 91/57 (68) 100 07/25/20 17:15 94 30 91/62 (72) 100 07/25/20 17:00 28 92/58 Mechanical Ventilator 50 07/25/20 17:00 93 28 92/58 (69) 100 07/25/20 16:15 89 28 90/62 (71) 100 07/25/20 16:00 Mechanical Ventilator Mechanical Ventilator Mechanical Ventilator 07/25/20 16:00 91 07/25/20 16:00 28 91/56 Mechanical Ventilator 50 07/25/20 16:00 50 07/25/20 16:00 100.5 93 28 91/56 (68) 100 07/25/20 15:57 92 29 91/59 (70) 100 07/25/20 15:45 90 31 85/50 (62) 100 07/25/20 15:35 98 29 55 07/25/20 15:30 99 29 93/56 (68) 100 07/25/20 15:15 100 30 93/58 (70) 100 07/25/20 15:00 101 32 94/56 (69) 100 07/25/20 15:00 32 94/56 Mechanical Ventilator 50 07/25/20 15:00 32 94/56 Mechanical Ventilator 50 07/25/20 14:45 114 29 104/67 (79) 91 07/25/20 14:30 102 26 91/57 (68) 100 07/25/20 14:15 101 32 93/56 (68) 100 07/25/20 14:00 97 26 102/59 (73) 100 07/25/20 14:00 26 102/59 Mechanical Ventilator 55 07/25/20 14:00 26 102/59 Mechanical Ventilator 55 07/25/20 13:00 27 91/57 Mechanical Ventilator 55 07/25/20 13:00 27 91/57 Mechanical Ventilator 55 07/25/20 13:00 100 32 91/57 (68) 100 07/25/20 12:30 94 27 98/59 (72) 100 07/25/20 12:15 98 34 93/63 (73) 100 07/25/20 12:00 100.0 98 31 95/60 (72) 100 07/25/20 12:00 Mechanical Ventilator Mechanical Ventilator Mechanical Ventilator 07/25/20 12:00 100 07/25/20 12:00 55 07/25/20 12:00 27 95/60 Mechanical Ventilator 55 07/25/20 12:00 26 95/60 Mechanical Ventilator 55 07/25/20 11:45 96 29 92/54 (67) 100 07/25/20 11:35 99 32 55 07/25/20 11:30 98 33 92/56 (68) 100 07/25/20 11:15 97 23 88/54 (65) 100 07/25/20 11:00 97 21 89/54 (66) 100 07/25/20 11:00 29 100/58 Mechanical Ventilator 55 07/25/20 11:00 29 100/58 Mechanical Ventilator 55 07/25/20 10:45 100 25 100/58 (72) 100 07/25/20 10:30 100 27 102/62 (75) 100 07/25/20 10:15 96 33 99/60 (73) 100 07/25/20 10:00 29 93/54 Mechanical Ventilator 55 07/25/20 10:00 26 99/60 Mechanical Ventilator 55 07/25/20 10:00 96 23 93/60 (71) 100 07/25/20 09:15 96 30 90/56 (67) 100 07/25/20 09:00 29 93/54 Mechanical Ventilator 55 07/25/20 09:00 29 93/54 Mechanical Ventilator 55 07/25/20 09:00 96 31 93/54 (67) 100 07/25/20 08:45 97 34 93/58 (70) 100 07/25/20 08:30 97 38 94/55 (68) 100 07/25/20 08:15 98 6 95/56 (69) 100 07/25/20 08:00 55 07/25/20 08:00 100.0 100 23 95/60 (72) 100 07/25/20 08:00 98 07/25/20 08:00 22 95/60 Mechanical Ventilator 55 07/25/20 08:00 26 95/60 Mechanical Ventilator 55 07/25/20 08:00 Mechanical Ventilator Mechanical Ventilator Mechanical Ventilator 07/25/20 07:45 97 27 97/57 (70) 100 07/25/20 07:34 97 25 55 07/25/20 07:30 98 27 95/59 (71) 100 07/25/20 07:15 97 26 96/56 (69) 100 07/25/20 07:00 24 101/63 Mechanical Ventilator 55 07/25/20 07:00 24 101/63 Mechanical Ventilator 55 07/25/20 07:00 99 24 101/63 (76) 100 07/25/20 06:30 99 24 98/61 (73) 100 07/25/20 06:30 96 24 07/25/20 06:15 22 104/70 Mechanical Ventilator 55 07/25/20 06:15 105 22 104/70 (81) 100 07/25/20 06:00 30 102/67 55 07/25/20 06:00 30 102/67 Mechanical Ventilator 55 07/25/20 06:00 99 30 102/67 (79) 100 07/25/20 05:45 94 25 97/56 (70) 100 07/25/20 05:45 25 97/56 Mechanical Ventilator 55 07/25/20 05:30 31 96/57 Mechanical Ventilator 55 07/25/20 05:30 95 31 96/57 (70) 100 07/25/20 05:15 96 24 97/57 (70) 100 07/25/20 05:15 14 97/57 Mechanical Ventilator 55 07/25/20 05:00 95 28 96/58 (71) 100 07/25/20 05:00 30 96/58 Mechanical Ventilator 55 07/25/20 05:00 30 96/58 Mechanical Ventilator 55 07/25/20 04:55 98 27 55 07/25/20 04:30 95 28 89/53 (65) 100 07/25/20 04:00 97 07/25/20 04:00 55 07/25/20 04:00 32 105/73 Mechanical Ventilator 55 07/25/20 04:00 32 105/73 Mechanical Ventilator 55 07/25/20 04:00 97 32 105/73 (84) 100 07/25/20 04:00 Mechanical Ventilator Mechanical Ventilator Mechanical Ventilator 07/25/20 03:30 97 31 106/68 (81) 100 07/25/20 03:20 97 29 55 07/25/20 03:00 28 94/58 Mechanical Ventilator 55 07/25/20 03:00 28 94/58 Mechanical Ventilator 55 07/25/20 03:00 92 28 94/58 (70) 100 07/25/20 02:30 94 27 103/66 (78) 100 07/25/20 02:00 28 101/64 Mechanical Ventilator 55 07/25/20 02:00 28 101/64 Mechanical Ventilator 55 07/25/20 02:00 93 28 101/64 (76) 100 07/25/20 01:30 93 31 99/67 (78) 100 07/25/20 01:00 27 98/66 Mechanical Ventilator 55 07/25/20 01:00 27 98/66 Mechanical Ventilator 55 07/25/20 01:00 98.5 93 27 98/66 (77) 100 07/25/20 00:30 92 28 93/63 (73) 100 07/25/20 00:00 29 94/63 Mechanical Ventilator 55 07/25/20 00:00 29 94/63 Mechanical Ventilator 55 07/25/20 00:00 55 07/25/20 00:00 92 07/25/20 00:00 Mechanical Ventilator Mechanical Ventilator Mechanical Ventilator 07/25/20 00:00 92 29 94/63 (73) 100 07/24/20 23:30 91 30 89/55 (66) 100 07/24/20 23:20 97 27 55 07/24/20 23:00 93 26 94/60 (71) 100 07/24/20 23:00 26 94/60 Mechanical Ventilator 55 07/24/20 23:00 26 94/60 Mechanical Ventilator 55 07/24/20 22:30 93 26 92/65 (74) 100 07/24/20 22:00 28 98/61 Mechanical Ventilator 55 07/24/20 22:00 28 98/61 Mechanical Ventilator 55 07/24/20 22:00 95 28 98/61 (73) 100 07/24/20 21:30 95 28 91/61 (71) 100 07/24/20 21:29 102 24 55 07/24/20 21:00 28 94/64 Mechanical Ventilator 55 07/24/20 21:00 28 94/64 Mechanical Ventilator 55 07/24/20 21:00 94 28 94/64 (74) 100 07/24/20 20:30 93 31 99/64 (76) 100 07/24/20 20:00 98.7 99 25 94/63 (73) 100 07/24/20 20:00 99 07/24/20 20:00 Mechanical Ventilator Mechanical Ventilator Mechanical Ventilator 07/24/20 20:00 25 94/63 Mechanical Ventilator 55 07/24/20 20:00 25 94/63 Mechanical Ventilator 55 07/24/20 20:00 55 07/24/20 19:00 94 27 55 07/24/20 19:00 102 30 96/68 (77) 100 07/24/20 19:00 27 96/68 Mechanical Ventilator 55 07/24/20 19:00 26 96/68 Mechanical Ventilator 55 07/24/20 18:45 102 30 100/68 (79) 100 07/24/20 18:30 104 31 96/69 (78) 100 07/24/20 18:15 108 43 109/69 (82) 98 07/24/20 18:00 27 105/71 Mechanical Ventilator 55 07/24/20 18:00 26 105/71 Mechanical Ventilator 55 07/24/20 18:00 103 30 105/71 (82) 99 07/24/20 17:54 26 109/73 Mechanical Ventilator 55 07/24/20 17:45 101 23 112/69 (83) 100 07/24/20 17:30 99 25 104/72 (83) 100 07/24/20 17:15 99 26 109/69 (82) 100 07/24/20 17:00 28 108/71 Mechanical Ventilator 55 07/24/20 17:00 28 108/71 Mechanical Ventilator 65 07/24/20 17:00 104 28 108/71 (83) 99 07/24/20 16:45 98 26 110/68 (82) 100 07/24/20 16:30 100 22 105/70 (82) 100 07/24/20 16:15 100 9 105/70 (82) 100 07/24/20 16:00 100.2 103 24 104/74 (84) 100 07/24/20 16:00 Mechanical Ventilator Mechanical Ventilator Mechanical Ventilator 07/24/20 16:00 26 104/74 Mechanical Ventilator 55 07/24/20 16:00 26 104/74 Mechanical Ventilator 65 07/24/20 16:00 55 07/24/20 16:00 102 07/24/20 15:45 104 18 104/67 (79) 100 07/24/20 15:30 103 11 110/73 (85) 100 07/24/20 15:15 112 37 127/79 (95) 100 07/24/20 15:00 104 28 130/70 (90) 100 07/24/20 15:00 31 131/88 Mechanical Ventilator 55 07/24/20 15:00 31 131/88 Mechanical Ventilator 55 07/24/20 14:45 119 33 120/105 (110) 88 07/24/20 14:40 117 38 55 07/24/20 14:30 110 39 119/70 (86) 97 07/24/20 14:15 115 36 106/79 (88) 92 07/24/20 14:00 113 30 118/83 (95) 96 07/24/20 14:00 31 118/83 Mechanical Ventilator 45 07/24/20 14:00 31 118/83 Mechanical Ventilator 45 07/24/20 13:30 113 41 131/70 (90) 92 07/24/20 13:15 109 31 123/76 (92) 95 07/24/20 13:00 98 14 141/87 (105) 100 07/24/20 13:00 31 141/87 Mechanical Ventilator 45 07/24/20 13:00 31 141/87 Mechanical Ventilator 45 07/24/20 12:45 96 18 133/93 (106) 99 07/24/20 12:30 108 31 121/80 (94) 97 07/24/20 12:15 97 31 115/73 (87) 99 07/24/20 12:07 104/69 07/24/20 12:00 98.9 105 40 116/71 (86) 87 07/24/20 12:00 99 07/24/20 12:00 Mechanical Ventilator Mechanical Ventilator Mechanical Ventilator 07/24/20 12:00 28 116/71 Mechanical Ventilator 45 07/24/20 12:00 28 116/71 Mechanical Ventilator 45 07/24/20 12:00 45 07/24/20 11:54 107 20 84 07/24/20 11:53 104 20 87 07/24/20 11:45 105 29 105/76 (86) 96 07/24/20 11:40 98.9 100 35 112/73 (86) 95 07/24/20 11:30 101 37 105/78 (87) 97 07/24/20 11:25 99.0 102 35 110/70 (83) 96 07/24/20 11:15 101 7 110/70 (83) 97 07/24/20 11:00 28 111/64 Mechanical Ventilator 45 07/24/20 11:00 28 111/64 Mechanical Ventilator 45 07/24/20 11:00 99.0 105 33 111/64 (80) 96 07/24/20 10:45 103 30 101/62 (75) 95 07/24/20 10:34 102 27 45 07/24/20 10:30 106 30 97/65 (76) 90 07/24/20 10:15 106 34 106/68 (81) 88 07/24/20 10:06 100.0 07/24/20 10:00 107 31 98/59 (72) 88 07/24/20 10:00 27 98/59 Mechanical Ventilator 45 07/24/20 10:00 27 98/59 Mechanical Ventilator 45 07/24/20 09:45 106 32 95/57 (70) 90 07/24/20 09:30 100.0 110 36 98/54 (69) 91 07/24/20 09:15 108 33 102/54 (70) 92 07/24/20 09:00 101 32 107/65 (79) 93 07/24/20 09:00 26 107/65 Mechanical Ventilator 40 07/24/20 09:00 26 107/65 Mechanical Ventilator 40 07/24/20 08:45 103 34 106/67 (80) 94 07/24/20 08:30 101 34 99/61 (74) 97 07/24/20 08:15 103 35 103/64 (77) 95 07/24/20 08:00 Mechanical Ventilator Mechanical Ventilator Mechanical Ventilator 07/24/20 08:00 102 07/24/20 08:00 40 07/24/20 08:00 100.6 100 27 99/64 (76) 96 07/24/20 08:00 26 99/64 Mechanical Ventilator 40 07/24/20 08:00 26 99/64 Mechanical Ventilator 40 07/24/20 07:45 105 36 116/79 (91) 95 07/24/20 07:30 109 42 121/77 (92) 84 07/24/20 07:19 101 31 40 07/24/20 07:15 99 34 106/67 (80) 91 07/24/20 07:00 101 33 104/63 (77) 91 07/24/20 07:00 16 104/63 Mechanical Ventilator 40 07/24/20 07:00 18 104/63 Mechanical Ventilator 40 Intake and Output 07/25/20 07/26/20 19:00 07:00 Intake Total 1166 ml 972.5 ml Output Total 955 ml 550 ml Balance 211 ml 422.5 ml Free Water 25 ml 60 ml IV Total 1081 ml 747.5 ml Tube Feeding 60 ml 165 ml Output Urine Total 760 ml 550 ml Chest Tube Drainage Total 195 ml Labs Test 07/23/20 10:35 07/24/20 04:00 07/25/20 04:06 07/26/20 03:40 Arterial Blood pH 7.368 (7.350-7.450) Arterial Blood Partial Pressure CO2 59.2 mmHg (35.0-45.0) Arterial Blood Partial Pressure O2 71.6 mmHg (75.0-100.0) Arterial Blood HCO3 33.3 mmol/L (22.0-26.0) Arterial Blood Oxygen Saturation 92.8 % (95-100) Arterial Blood Base Excess 7.0 (-2-2) Jeremiah Test Positive White Blood Count 11.1 K/UL (4.8-10.8) 11.1 K/UL (4.8-10.8) 8.8 K/UL (4.8-10.8) Red Blood Count 2.49 M/UL (4.20-5.40) 2.80 M/UL (4.20-5.40) 2.60 M/UL (4.20-5.40) Hemoglobin 7.1 G/DL (12.0-16.0) 7.9 G/DL (12.0-16.0) 7.5 G/DL (12.0-16.0) Hematocrit 22.8 % (37.0-47.0) 25.7 % (37.0-47.0) 23.9 % (37.0-47.0) Mean Corpuscular Volume 91 FL (80-99) 92 FL (80-99) 92 FL (80-99) Mean Corpuscular Hemoglobin 28.4 PG (27.0-31.0) 28.4 PG (27.0-31.0) 28.8 PG (27.0-31.0) Mean Corpuscular Hemoglobin Concent 31.2 G/DL (32.0-36.0) 30.9 G/DL (32.0-36.0) 31.3 G/DL (32.0-36.0) Red Cell Distribution Width 16.7 % (11.6-14.8) 16.9 % (11.6-14.8) 17.0 % (11.6-14.8) Platelet Count 248 K/UL (150-450) 258 K/UL (150-450) 232 K/UL (150-450) Mean Platelet Volume 7.4 FL (6.5-10.1) 7.4 FL (6.5-10.1) 7.2 FL (6.5-10.1) Neutrophils (%) (Auto) % (45.0-75.0) % (45.0-75.0) % (45.0-75.0) Lymphocytes (%) (Auto) % (20.0-45.0) % (20.0-45.0) % (20.0-45.0) Monocytes (%) (Auto) % (1.0-10.0) % (1.0-10.0) % (1.0-10.0) Eosinophils (%) (Auto) % (0.0-3.0) % (0.0-3.0) % (0.0-3.0) Basophils (%) (Auto) % (0.0-2.0) % (0.0-2.0) % (0.0-2.0) Prothrombin Time 12.4 SEC (9.30-11.50) Prothromb Time International Ratio 1.1 (0.9-1.1) Activated Partial Thromboplast Time 34 SEC (23-33) Sodium Level 138 MMOL/L (136-145) 138 MMOL/L (136-145) 143 MMOL/L (136-145) Potassium Level 4.0 MMOL/L (3.5-5.1) 3.8 MMOL/L (3.5-5.1) 3.7 MMOL/L (3.5-5.1) Chloride Level 100 MMOL/L (98-107) 102 MMOL/L (98-107) 104 MMOL/L (98-107) Carbon Dioxide Level 34 MMOL/L (21-32) 34 MMOL/L (21-32) 33 MMOL/L (21-32) Anion Gap 4 mmol/L (5-15) 3 mmol/L (5-15) 6 mmol/L (5-15) Blood Urea Nitrogen 16 mg/dL (7-18) 10 mg/dL (7-18) 4 mg/dL (7-18) Creatinine 0.6 MG/DL (0.55-1.30) 0.5 MG/DL (0.55-1.30) 0.4 MG/DL (0.55-1.30) Estimat Glomerular Filtration Rate > 60 mL/min (>60) > 60 mL/min (>60) > 60 mL/min (>60) Glucose Level 96 MG/DL (74-106) 106 MG/DL (74-106) 99 MG/DL (74-106) Calcium Level 9.4 MG/DL (8.5-10.1) 8.6 MG/DL (8.5-10.1) 8.1 MG/DL (8.5-10.1) Phosphorus Level 2.3 MG/DL (2.5-4.9) 2.2 MG/DL (2.5-4.9) Magnesium Level 1.6 MG/DL (1.8-2.4) 1.8 MG/DL (1.8-2.4) Total Bilirubin 0.2 MG/DL (0.2-1.0) 0.4 MG/DL (0.2-1.0) 0.4 MG/DL (0.2-1.0) Aspartate Amino Transf (AST/SGOT) 39 U/L (15-37) 27 U/L (15-37) 28 U/L (15-37) Alanine Aminotransferase (ALT/SGPT) 27 U/L (12-78) 22 U/L (12-78) 18 U/L (12-78) Alkaline Phosphatase 56 U/L (46-116) 63 U/L (46-116) 63 U/L (46-116) C-Reactive Protein, Quantitative 8.2 mg/dL (0.00-0.90) 12.4 mg/dL (0.00-0.90) Pro-B-Type Natriuretic Peptide 583 pg/mL (0-125) 322 pg/mL (0-125) Total Protein 6.3 G/DL (6.4-8.2) 6.2 G/DL (6.4-8.2) 6.1 G/DL (6.4-8.2) Albumin 2.3 G/DL (3.4-5.0) 2.2 G/DL (3.4-5.0) 2.3 G/DL (3.4-5.0) Globulin 4.0 g/dL 4.0 g/dL 3.8 g/dL Albumin/Globulin Ratio 0.6 (1.0-2.7) 0.6 (1.0-2.7) 0.6 (1.0-2.7) Differential Total Cells Counted 100 Neutrophils % (Manual) 57 % (45-75) Lymphocytes % (Manual) 26 % (20-45) Monocytes % (Manual) 9 % (1-10) Eosinophils % (Manual) 8 % (0-3) Basophils % (Manual) 0 % (0-2) Band Neutrophils 0 % (0-8) Platelet Estimate Adequate Platelet Morphology Normal Polychromasia 1+ Hypochromasia 1+ Anisocytosis 1+ Stomatocytes Occasional Height (Feet): 5 Height (Inches): 5.00 Weight (Pounds): 223 Objective GeNL: nv HEENT: ngt++ Pulm: vent/trach++ CV: rrr Abd: soft, nt, nd ++gt Ext: no cce Myron Condon MD Jul 26, 2020 06:35
--- NOTE | 2020-07-26 07:25 | NUR ---
RESPIRATORY NOTE: PT received on AC/VC: 15, 400 50%,+5. Alarms are on and audible. Vent circuit is secure and out of the way. Airway is secure and patent. No s/s of acute respiratory distress noted at this time. Will continue to closely monitor.
--- NOTE | 2020-07-26 07:40 | NUR ---
HAND OFF: Report given to RAKEL Galaviz. Endorsed POC.
[2020-07-26] MEDS: fentaNYL 2500mcg/NS 250ml 250 ML IV SCH (08:00)
[2020-07-26] MEDS: D5NS 1,000 ML IV SCH (08:10)
[2020-07-26] MEDS: Acetaminophen 650mg/20.3ml NG PRN ×4 (08:31→20:28)
[2020-07-26] MEDS: Enoxaparin 120 mg inj SUBQ SCH ×2 (08:36→21:00)
--- NOTE | 2020-07-26 08:39 | NUR ---
RESPIRATORY NOTE: FiO2 decreased from 50% to 45%. PT tolerating well. Amy ELLINGTON aware. Will continue to monitor.
[2020-07-26] MEDS ORDERED: Potassium Phosphate 20 MM in NS 275 ML IV ONE (09:00)
--- NOTE | 2020-07-26 09:28 | General Progress Note ---
Subjective Constitutional: Reports: weakness Allergies: Coded Allergies: No Known Allergies (Unverified , 05/28/20) All Systems: reviewed and negative except above Subjective trach vent in icu Objective Last 24 Hour Vital Signs Date Time Temp Pulse Resp B/P (MAP) Pulse Ox O2 Delivery O2 Flow Rate FiO2 07/26/20 08:39 99 41 45 07/26/20 08:00 31 99/66 Mechanical Ventilator 50 07/26/20 08:00 30 99/66 Mechanical Ventilator 50 07/26/20 07:25 96 35 50 07/26/20 07:00 28 100/64 Mechanical Ventilator 40 07/26/20 07:00 28 100/64 Mechanical Ventilator 40 07/26/20 07:00 95 28 100/64 (76) 100 07/26/20 06:30 96 30 103/63 (76) 100 07/26/20 06:30 96 30 07/26/20 06:00 25 103/69 Mechanical Ventilator 50 07/26/20 06:00 25 103/69 Mechanical Ventilator 50 07/26/20 06:00 96 25 103/69 (80) 100 07/26/20 05:00 94 30 101/65 (77) 100 07/26/20 05:00 30 101/65 Mechanical Ventilator 50 07/26/20 05:00 30 101/65 Mechanical Ventilator 50 07/26/20 04:30 93 26 96/65 (75) 100 07/26/20 04:00 Mechanical Ventilator Mechanical Ventilator Mechanical Ventilator 07/26/20 04:00 96 25 96/68 (77) 100 07/26/20 04:00 96 07/26/20 04:00 25 96/68 Mechanical Ventilator 50 07/26/20 04:00 25 96/68 Mechanical Ventilator 50 07/26/20 04:00 50 07/26/20 03:42 92 30 50 07/26/20 03:30 93 32 96/59 (71) 100 07/26/20 03:00 91 28 94/63 (73) 100 07/26/20 03:00 28 94/63 Mechanical Ventilator 50 07/26/20 03:00 28 94/63 Mechanical Ventilator 50 07/26/20 02:30 94 30 96/61 (73) 100 07/26/20 02:00 92 28 98/61 (73) 100 07/26/20 02:00 28 98/61 Mechanical Ventilator 50 07/26/20 02:00 28 98/61 Mechanical Ventilator 50 07/26/20 01:30 93 33 50 07/26/20 01:30 91 30 103/64 (77) 100 07/26/20 01:00 91 28 96/60 (72) 100 07/26/20 01:00 28 96/60 Mechanical Ventilator 50 07/26/20 01:00 28 96/60 Mechanical Ventilator 50 07/26/20 01:00 28 96/60 Mechanical Ventilator 50 07/26/20 01:00 28 96/60 Mechanical Ventilator 50 07/26/20 00:00 50 07/26/20 00:00 91 30 97/62 (74) 100 07/26/20 00:00 91 07/26/20 00:00 30 97/62 Mechanical Ventilator 50 07/26/20 00:00 30 97/62 Mechanical Ventilator 50 07/26/20 00:00 Mechanical Ventilator Mechanical Ventilator Mechanical Ventilator 07/25/20 23:30 92 28 97/63 (74) 100 07/25/20 23:24 93 30 50 07/25/20 23:00 98 30 100/61 (74) 100 07/25/20 23:00 30 100/61 Mechanical Ventilator 50.0 07/25/20 22:30 101 30 97/60 (72) 99 07/25/20 22:00 104 31 97/59 (72) 100 07/25/20 22:00 31 97/59 Mechanical Ventilator 40 07/25/20 21:30 102 29 97/60 (72) 99 07/25/20 21:24 97 30 50 07/25/20 21:00 30 98/64 Mechanical Ventilator 50.0 07/25/20 21:00 101 30 98/64 (75) 99 07/25/20 20:45 100 28 95/58 (70) 98 07/25/20 20:45 28 95/58 Mechanical Ventilator 50 07/25/20 20:30 102 35 101/65 (77) 99 07/25/20 20:30 35 101/65 Mechanical Ventilator 50 07/25/20 20:15 103 29 104/63 (77) 100 07/25/20 20:15 29 104/63 Mechanical Ventilator 50 07/25/20 20:00 Mechanical Ventilator Mechanical Ventilator Mechanical Ventilator 07/25/20 20:00 102 33 105/65 (78) 100 07/25/20 20:00 33 105/65 Mechanical Ventilator 50 07/25/20 20:00 33 105/65 Mechanical Ventilator 50 07/25/20 19:30 100 31 94/61 (72) 100 07/25/20 19:27 100 32 50 07/25/20 19:00 104 29 102/68 (79) 100 07/25/20 19:00 30 102/68 Mechanical Ventilator 50 07/25/20 18:45 92 27 91/57 (68) 100 07/25/20 18:30 90 26 93/63 (73) 100 07/25/20 18:15 91 26 91/58 (69) 100 07/25/20 18:00 28 91/58 Mechanical Ventilator 50 07/25/20 18:00 88 29 87/55 (66) 100 07/25/20 17:45 92 28 91/59 (70) 100 07/25/20 17:30 93 28 91/57 (68) 100 07/25/20 17:15 94 30 91/62 (72) 100 07/25/20 17:00 28 92/58 Mechanical Ventilator 50 07/25/20 17:00 93 28 92/58 (69) 100 07/25/20 16:15 89 28 90/62 (71) 100 07/25/20 16:00 Mechanical Ventilator Mechanical Ventilator Mechanical Ventilator 07/25/20 16:00 91 07/25/20 16:00 28 91/56 Mechanical Ventilator 50 07/25/20 16:00 50 07/25/20 16:00 100.5 93 28 91/56 (68) 100 07/25/20 15:57 92 29 91/59 (70) 100 07/25/20 15:45 90 31 85/50 (62) 100 07/25/20 15:35 98 29 55 07/25/20 15:30 99 29 93/56 (68) 100 07/25/20 15:15 100 30 93/58 (70) 100 07/25/20 15:00 101 32 94/56 (69) 100 07/25/20 15:00 32 94/56 Mechanical Ventilator 50 07/25/20 15:00 32 94/56 Mechanical Ventilator 50 07/25/20 14:45 114 29 104/67 (79) 91 07/25/20 14:30 102 26 91/57 (68) 100 07/25/20 14:15 101 32 93/56 (68) 100 07/25/20 14:00 97 26 102/59 (73) 100 07/25/20 14:00 26 102/59 Mechanical Ventilator 55 07/25/20 14:00 26 102/59 Mechanical Ventilator 55 07/25/20 13:00 27 91/57 Mechanical Ventilator 55 07/25/20 13:00 27 91/57 Mechanical Ventilator 55 07/25/20 13:00 100 32 91/57 (68) 100 07/25/20 12:30 94 27 98/59 (72) 100 07/25/20 12:15 98 34 93/63 (73) 100 07/25/20 12:00 100.0 98 31 95/60 (72) 100 07/25/20 12:00 Mechanical Ventilator Mechanical Ventilator Mechanical Ventilator 07/25/20 12:00 100 07/25/20 12:00 55 07/25/20 12:00 27 95/60 Mechanical Ventilator 55 07/25/20 12:00 26 95/60 Mechanical Ventilator 55 07/25/20 11:45 96 29 92/54 (67) 100 07/25/20 11:35 99 32 55 07/25/20 11:30 98 33 92/56 (68) 100 07/25/20 11:15 97 23 88/54 (65) 100 07/25/20 11:00 97 21 89/54 (66) 100 07/25/20 11:00 29 100/58 Mechanical Ventilator 55 07/25/20 11:00 29 100/58 Mechanical Ventilator 55 07/25/20 10:45 100 25 100/58 (72) 100 07/25/20 10:30 100 27 102/62 (75) 100 07/25/20 10:15 96 33 99/60 (73) 100 07/25/20 10:00 29 93/54 Mechanical Ventilator 55 07/25/20 10:00 26 99/60 Mechanical Ventilator 55 07/25/20 10:00 96 23 93/60 (71) 100 Intake and Output 07/25/20 07/26/20 19:00 07:00 Intake Total 1166 ml 1087.5 ml Output Total 955 ml 600 ml Balance 211 ml 487.5 ml Free Water 25 ml 90 ml IV Total 1081 ml 817.5 ml Tube Feeding 60 ml 180 ml Output Urine Total 760 ml 600 ml Chest Tube Drainage Total 195 ml Laboratory Tests 07/26/20 03:40: White Blood Count 8.8, Red Blood Count 2.60L, Hemoglobin 7.5L, Hematocrit 23.9L, Mean Corpuscular Volume 92, Mean Corpuscular Hemoglobin 28.8, Mean Corpuscular Hemoglobin Concent 31.3L, Red Cell Distribution Width 17.0H, Platelet Count 232, Mean Platelet Volume 7.2, Neutrophils (%) (Auto) , Lymphocytes (%) (Auto) , Monocytes (%) (Auto) , Eosinophils (%) (Auto) , Basophils (%) (Auto) , Sodium Level 143, Potassium Level 3.7, Chloride Level 104, Carbon Dioxide Level 33H, Anion Gap 6, Blood Urea Nitrogen 4L, Creatinine 0.4L, Estimat Glomerular Filtration Rate > 60, Glucose Level 99, Calcium Level 8.1L, Phosphorus Level 2.2L, Magnesium Level 1.8, Total Bilirubin 0.4, Aspartate Amino Transf (AST/SGOT) 28, Alanine Aminotransferase (ALT/SGPT) 18, Alkaline Phosphatase 63, C-Reactive Protein, Quantitative 12.4H, Pro-B-Type Natriuretic Peptide 322H, Total Protein 6.1L, Albumin 2.3L, Globulin 3.8, Albumin/Globulin Ratio 0.6L Height (Feet): 5 Height (Inches): 5.00 Weight (Pounds): 223 General Appearance: lethargic EENT: normal ENT inspection Neck: normal alignment Cardiovascular: normal peripheral pulses, normal rate, regular rhythm Respiratory/Chest: chest wall non-tender, lungs clear, normal breath sounds Abdomen: normal bowel sounds, non tender, soft Extremities: normal inspection Edema: no edema noted Arm (L), no edema noted Arm (R), no edema noted Leg (L), no edema noted Leg (R), no edema noted Pedal (L), no edema noted Pedal (R), no edema noted Generalized Neurologic: motor weakness Skin: normal pigmentation, warm/dry Assessment/Plan Problem List: (1) Hypoxia ICD Codes: R09.02 - Hypoxemia SNOMED: 451248385 (2) Respiratory failure ICD Codes: J96.90 - Respiratory failure, unspecified, unspecified whether with hypoxia or hypercapnia SNOMED: 986200714 (3) Respiratory distress ICD Codes: R06.03 - Acute respiratory distress; J12.82 - Pneumonia due to coronavirus disease 2019 SNOMED: 580599968 (4) Pneumonia due to COVID-19 virus ICD Codes: U07.1 - COVID-19; J12.82 - Pneumonia due to coronavirus disease 2019 SNOMED: 852805611468954257 Status: unchanged Assessment/Plan: vent abx id pulm f/u cbc bmp am Tank Del Cid DO Jul 26, 2020 09:28
[2020-07-26] MEDS: Versed 100mg/NS 200ml 200 ML IV PRN (10:00)
--- NOTE | 2020-07-26 10:33 | Cardiac Electrophysiology PN ---
Assessment/Plan Assessment/Plan 1. Respiratory failure due to COVID-19 pneumonia. On tracheostomy on 100 % Fio2. Trach exchanged 07/22/[address] Devine Echo EF 60% 2. S/P Code x2 with hypotension and sammy arrest on 07/22/20 likely due to Pneumothorax No further after chest tube. HR stable 3. Right Pneumothorax, S/P chest tube placement Removal pending less drainage 4. Hypotension, on midodrine 10 mg 3 times daily and off pressors 5. Dysphagia. S/P PEG 07/24/20 6. Right lower extremity DVT. Follow up by Hematology. May need IVC filter placement. 7. Severe anemia, S/P PRBC DW RN and Dr Devine Subjective Subjective In ICU on the Vent on 45 % Fio2 and PEEP 5 in SR. Coded twice for hypotension and bradycardia while on the Vent about 20 minutes after tracheostomy was changed 07/22/20 Found to have Right Pneumothorax and underwent Right chest tube placement by Dr Devine S/P PRBC. S/P PEG 07/24/20. Chest tube <200 ccc draining Objective Last 24 Hour Vital Signs Date Time Temp Pulse Resp B/P (MAP) Pulse Ox O2 Delivery O2 Flow Rate FiO2 07/26/20 10:00 106 33 96/61 (73) 95 07/26/20 10:00 30 99/65 Mechanical Ventilator 45 07/26/20 09:30 103 27 103/59 (74) 95 07/26/20 09:10 101.0 07/26/20 09:00 99 33 101/60 (74) 98 07/26/20 08:39 99 41 45 07/26/20 08:30 101 34 103/65 (78) 99 07/26/20 08:00 50 07/26/20 08:00 101.3 105 33 99/66 (77) 98 07/26/20 08:00 31 99/66 Mechanical Ventilator 50 07/26/20 08:00 30 99/66 Mechanical Ventilator 50 07/26/20 07:30 97 29 100/64 (76) 99 07/26/20 07:25 96 35 50 07/26/20 07:00 28 100/64 Mechanical Ventilator 40 07/26/20 07:00 28 100/64 Mechanical Ventilator 40 07/26/20 07:00 95 28 100/64 (76) 100 07/26/20 06:30 96 30 103/63 (76) 100 07/26/20 06:30 96 30 07/26/20 06:00 25 103/69 Mechanical Ventilator 50 07/26/20 06:00 25 103/69 Mechanical Ventilator 50 07/26/20 06:00 96 25 103/69 (80) 100 07/26/20 05:00 94 30 101/65 (77) 100 07/26/20 05:00 30 101/65 Mechanical Ventilator 50 07/26/20 05:00 30 101/65 Mechanical Ventilator 50 07/26/20 04:30 93 26 96/65 (75) 100 07/26/20 04:00 Mechanical Ventilator Mechanical Ventilator Mechanical Ventilator 07/26/20 04:00 96 25 96/68 (77) 100 07/26/20 04:00 96 07/26/20 04:00 25 96/68 Mechanical Ventilator 50 07/26/20 04:00 25 96/68 Mechanical Ventilator 50 07/26/20 04:00 50 07/26/20 03:42 92 30 50 07/26/20 03:30 93 32 96/59 (71) 100 07/26/20 03:00 91 28 94/63 (73) 100 07/26/20 03:00 28 94/63 Mechanical Ventilator 50 07/26/20 03:00 28 94/63 Mechanical Ventilator 50 07/26/20 02:30 94 30 96/61 (73) 100 07/26/20 02:00 92 28 98/61 (73) 100 07/26/20 02:00 28 98/61 Mechanical Ventilator 50 07/26/20 02:00 28 98/61 Mechanical Ventilator 50 07/26/20 01:30 93 33 50 07/26/20 01:30 91 30 103/64 (77) 100 07/26/20 01:00 91 28 96/60 (72) 100 07/26/20 01:00 28 96/60 Mechanical Ventilator 50 07/26/20 01:00 28 96/60 Mechanical Ventilator 50 07/26/20 01:00 28 96/60 Mechanical Ventilator 50 07/26/20 01:00 28 96/60 Mechanical Ventilator 50 07/26/20 00:00 50 07/26/20 00:00 91 30 97/62 (74) 100 07/26/20 00:00 91 07/26/20 00:00 30 97/62 Mechanical Ventilator 50 07/26/20 00:00 30 97/62 Mechanical Ventilator 50 07/26/20 00:00 Mechanical Ventilator Mechanical Ventilator Mechanical Ventilator 07/25/20 23:30 92 28 97/63 (74) 100 07/25/20 23:24 93 30 50 07/25/20 23:00 98 30 100/61 (74) 100 07/25/20 23:00 30 100/61 Mechanical Ventilator 50.0 07/25/20 22:30 101 30 97/60 (72) 99 07/25/20 22:00 104 31 97/59 (72) 100 07/25/20 22:00 31 97/59 Mechanical Ventilator 40 07/25/20 21:30 102 29 97/60 (72) 99 07/25/20 21:24 97 30 50 07/25/20 21:00 30 98/64 Mechanical Ventilator 50.0 07/25/20 21:00 101 30 98/64 (75) 99 07/25/20 20:45 100 28 95/58 (70) 98 07/25/20 20:45 28 95/58 Mechanical Ventilator 50 07/25/20 20:30 102 35 101/65 (77) 99 07/25/20 20:30 35 101/65 Mechanical Ventilator 50 07/25/20 20:15 103 29 104/63 (77) 100 07/25/20 20:15 29 104/63 Mechanical Ventilator 50 07/25/20 20:00 Mechanical Ventilator Mechanical Ventilator Mechanical Ventilator 07/25/20 20:00 102 33 105/65 (78) 100 07/25/20 20:00 33 105/65 Mechanical Ventilator 50 07/25/20 20:00 33 105/65 Mechanical Ventilator 50 07/25/20 19:30 100 31 94/61 (72) 100 07/25/20 19:27 100 32 50 07/25/20 19:00 104 29 102/68 (79) 100 07/25/20 19:00 30 102/68 Mechanical Ventilator 50 07/25/20 18:45 92 27 91/57 (68) 100 07/25/20 18:30 90 26 93/63 (73) 100 07/25/20 18:15 91 26 91/58 (69) 100 07/25/20 18:00 28 91/58 Mechanical Ventilator 50 07/25/20 18:00 88 29 87/55 (66) 100 07/25/20 17:45 92 28 91/59 (70) 100 07/25/20 17:30 93 28 91/57 (68) 100 07/25/20 17:15 94 30 91/62 (72) 100 07/25/20 17:00 28 92/58 Mechanical Ventilator 50 07/25/20 17:00 93 28 92/58 (69) 100 07/25/20 16:15 89 28 90/62 (71) 100 07/25/20 16:00 Mechanical Ventilator Mechanical Ventilator Mechanical Ventilator 07/25/20 16:00 91 07/25/20 16:00 28 91/56 Mechanical Ventilator 50 07/25/20 16:00 50 07/25/20 16:00 100.5 93 28 91/56 (68) 100 07/25/20 15:57 92 29 91/59 (70) 100 07/25/20 15:45 90 31 85/50 (62) 100 07/25/20 15:35 98 29 55 07/25/20 15:30 99 29 93/56 (68) 100 07/25/20 15:15 100 30 93/58 (70) 100 07/25/20 15:00 101 32 94/56 (69) 100 07/25/20 15:00 32 94/56 Mechanical Ventilator 50 07/25/20 15:00 32 94/56 Mechanical Ventilator 50 07/25/20 14:45 114 29 104/67 (79) 91 07/25/20 14:30 102 26 91/57 (68) 100 07/25/20 14:15 101 32 93/56 (68) 100 07/25/20 14:00 97 26 102/59 (73) 100 07/25/20 14:00 26 102/59 Mechanical Ventilator 55 07/25/20 14:00 26 102/59 Mechanical Ventilator 55 07/25/20 13:00 27 91/57 Mechanical Ventilator 55 07/25/20 13:00 27 91/57 Mechanical Ventilator 55 07/25/20 13:00 100 32 91/57 (68) 100 07/25/20 12:30 94 27 98/59 (72) 100 07/25/20 12:15 98 34 93/63 (73) 100 07/25/20 12:00 100.0 98 31 95/60 (72) 100 07/25/20 12:00 Mechanical Ventilator Mechanical Ventilator Mechanical Ventilator 07/25/20 12:00 100 07/25/20 12:00 55 07/25/20 12:00 27 95/60 Mechanical Ventilator 55 07/25/20 12:00 26 95/60 Mechanical Ventilator 55 07/25/20 11:45 96 29 92/54 (67) 100 07/25/20 11:35 99 32 55 07/25/20 11:30 98 33 92/56 (68) 100 07/25/20 11:15 97 23 88/54 (65) 100 07/25/20 11:00 97 21 89/54 (66) 100 07/25/20 11:00 29 100/58 Mechanical Ventilator 55 07/25/20 11:00 29 100/58 Mechanical Ventilator 55 07/25/20 10:45 100 25 100/58 (72) 100 Intake and Output 07/25/20 07/26/20 19:00 07:00 Intake Total 1166 ml 1087.5 ml Output Total 955 ml 600 ml Balance 211 ml 487.5 ml Free Water 25 ml 90 ml IV Total 1081 ml 817.5 ml Tube Feeding 60 ml 180 ml Output Urine Total 760 ml 600 ml Chest Tube Drainage Total 195 ml Laboratory Tests Test 07/26/20 03:40 White Blood Count 8.8 K/UL (4.8-10.8) Red Blood Count 2.60 M/UL (4.20-5.40) L Hemoglobin 7.5 G/DL (12.0-16.0) L Hematocrit 23.9 % (37.0-47.0) L Mean Corpuscular Volume 92 FL (80-99) Mean Corpuscular Hemoglobin 28.8 PG (27.0-31.0) Mean Corpuscular Hemoglobin Concent 31.3 G/DL (32.0-36.0) L Red Cell Distribution Width 17.0 % (11.6-14.8) H Platelet Count 232 K/UL (150-450) Mean Platelet Volume 7.2 FL (6.5-10.1) Neutrophils (%) (Auto) % (45.0-75.0) Lymphocytes (%) (Auto) % (20.0-45.0) Monocytes (%) (Auto) % (1.0-10.0) Eosinophils (%) (Auto) % (0.0-3.0) Basophils (%) (Auto) % (0.0-2.0) Sodium Level 143 MMOL/L (136-145) Potassium Level 3.7 MMOL/L (3.5-5.1) Chloride Level 104 MMOL/L (98-107) Carbon Dioxide Level 33 MMOL/L (21-32) H Anion Gap 6 mmol/L (5-15) Blood Urea Nitrogen 4 mg/dL (7-18) L Creatinine 0.4 MG/DL (0.55-1.30) L Estimat Glomerular Filtration Rate > 60 mL/min (>60) Glucose Level 99 MG/DL (74-106) Calcium Level 8.1 MG/DL (8.5-10.1) L Phosphorus Level 2.2 MG/DL (2.5-4.9) L Magnesium Level 1.8 MG/DL (1.8-2.4) Total Bilirubin 0.4 MG/DL (0.2-1.0) Aspartate Amino Transf (AST/SGOT) 28 U/L (15-37) Alanine Aminotransferase (ALT/SGPT) 18 U/L (12-78) Alkaline Phosphatase 63 U/L (46-116) C-Reactive Protein, Quantitative 12.4 mg/dL (0.00-0.90) H Pro-B-Type Natriuretic Peptide 322 pg/mL (0-125) H Total Protein 6.1 G/DL (6.4-8.2) L Albumin 2.3 G/DL (3.4-5.0) L Globulin 3.8 g/dL Albumin/Globulin Ratio 0.6 (1.0-2.7) L Objective HEAD AND NECK: Status post tracheostomy LUNGS: Coarse rhonchi.Right chest tube is in CARDIOVASCULAR: Regular S1 and S2 with no gallop. ABDOMEN: Soft.S/P PEG EXTREMITIES: 1+ pitting edema. Hill Burger MD Jul 26, 2020 10:33
--- NOTE | 2020-07-26 10:41 | Pulmonology Progress Note ---
Subjective ROS Limited/Unobtainable: No Interval Events: Events noted; required R CT after code. Also trach changed to 7 Constitutional: Reports: fever, other - resolved HEENT: Repors: no symptoms Respiratory: Reports: no symptoms Cardiovascular: Reports: no symptoms Gastrointestinal/Abdominal: Reports: vomiting Genitourinary: Reports: no symptoms Allergies: Coded Allergies: No Known Allergies (Unverified , 05/28/20) All Systems: reviewed and negative except above Objective Last 24 Hour Vital Signs Date Time Temp Pulse Resp B/P (MAP) Pulse Ox O2 Delivery O2 Flow Rate FiO2 07/26/20 10:00 106 33 96/61 (73) 95 07/26/20 10:00 30 99/65 Mechanical Ventilator 45 07/26/20 09:30 103 27 103/59 (74) 95 07/26/20 09:10 101.0 07/26/20 09:00 99 33 101/60 (74) 98 07/26/20 08:39 99 41 45 07/26/20 08:30 101 34 103/65 (78) 99 07/26/20 08:00 50 07/26/20 08:00 101.3 105 33 99/66 (77) 98 07/26/20 08:00 31 99/66 Mechanical Ventilator 50 07/26/20 08:00 30 99/66 Mechanical Ventilator 50 07/26/20 07:30 97 29 100/64 (76) 99 07/26/20 07:25 96 35 50 07/26/20 07:00 28 100/64 Mechanical Ventilator 40 07/26/20 07:00 28 100/64 Mechanical Ventilator 40 07/26/20 07:00 95 28 100/64 (76) 100 07/26/20 06:30 96 30 103/63 (76) 100 07/26/20 06:30 96 30 07/26/20 06:00 25 103/69 Mechanical Ventilator 50 07/26/20 06:00 25 103/69 Mechanical Ventilator 50 07/26/20 06:00 96 25 103/69 (80) 100 07/26/20 05:00 94 30 101/65 (77) 100 07/26/20 05:00 30 101/65 Mechanical Ventilator 50 07/26/20 05:00 30 101/65 Mechanical Ventilator 50 07/26/20 04:30 93 26 96/65 (75) 100 07/26/20 04:00 Mechanical Ventilator Mechanical Ventilator Mechanical Ventilator 07/26/20 04:00 96 25 96/68 (77) 100 07/26/20 04:00 96 07/26/20 04:00 25 96/68 Mechanical Ventilator 50 07/26/20 04:00 25 96/68 Mechanical Ventilator 50 07/26/20 04:00 50 07/26/20 03:42 92 30 50 07/26/20 03:30 93 32 96/59 (71) 100 07/26/20 03:00 91 28 94/63 (73) 100 07/26/20 03:00 28 94/63 Mechanical Ventilator 50 07/26/20 03:00 28 94/63 Mechanical Ventilator 50 07/26/20 02:30 94 30 96/61 (73) 100 07/26/20 02:00 92 28 98/61 (73) 100 07/26/20 02:00 28 98/61 Mechanical Ventilator 50 07/26/20 02:00 28 98/61 Mechanical Ventilator 50 07/26/20 01:30 93 33 50 07/26/20 01:30 91 30 103/64 (77) 100 07/26/20 01:00 91 28 96/60 (72) 100 07/26/20 01:00 28 96/60 Mechanical Ventilator 50 07/26/20 01:00 28 96/60 Mechanical Ventilator 50 07/26/20 01:00 28 96/60 Mechanical Ventilator 50 07/26/20 01:00 28 96/60 Mechanical Ventilator 50 07/26/20 00:00 50 07/26/20 00:00 91 30 97/62 (74) 100 07/26/20 00:00 91 07/26/20 00:00 30 97/62 Mechanical Ventilator 50 07/26/20 00:00 30 97/62 Mechanical Ventilator 50 07/26/20 00:00 Mechanical Ventilator Mechanical Ventilator Mechanical Ventilator 07/25/20 23:30 92 28 97/63 (74) 100 07/25/20 23:24 93 30 50 07/25/20 23:00 98 30 100/61 (74) 100 07/25/20 23:00 30 100/61 Mechanical Ventilator 50.0 07/25/20 22:30 101 30 97/60 (72) 99 07/25/20 22:00 104 31 97/59 (72) 100 07/25/20 22:00 31 97/59 Mechanical Ventilator 40 07/25/20 21:30 102 29 97/60 (72) 99 07/25/20 21:24 97 30 50 07/25/20 21:00 30 98/64 Mechanical Ventilator 50.0 07/25/20 21:00 101 30 98/64 (75) 99 07/25/20 20:45 100 28 95/58 (70) 98 07/25/20 20:45 28 95/58 Mechanical Ventilator 50 07/25/20 20:30 102 35 101/65 (77) 99 07/25/20 20:30 35 101/65 Mechanical Ventilator 50 07/25/20 20:15 103 29 104/63 (77) 100 07/25/20 20:15 29 104/63 Mechanical Ventilator 50 07/25/20 20:00 Mechanical Ventilator Mechanical Ventilator Mechanical Ventilator 07/25/20 20:00 102 33 105/65 (78) 100 07/25/20 20:00 33 105/65 Mechanical Ventilator 50 07/25/20 20:00 33 105/65 Mechanical Ventilator 50 07/25/20 19:30 100 31 94/61 (72) 100 07/25/20 19:27 100 32 50 07/25/20 19:00 104 29 102/68 (79) 100 07/25/20 19:00 30 102/68 Mechanical Ventilator 50 07/25/20 18:45 92 27 91/57 (68) 100 07/25/20 18:30 90 26 93/63 (73) 100 07/25/20 18:15 91 26 91/58 (69) 100 07/25/20 18:00 28 91/58 Mechanical Ventilator 50 07/25/20 18:00 88 29 87/55 (66) 100 07/25/20 17:45 92 28 91/59 (70) 100 07/25/20 17:30 93 28 91/57 (68) 100 07/25/20 17:15 94 30 91/62 (72) 100 07/25/20 17:00 28 92/58 Mechanical Ventilator 50 07/25/20 17:00 93 28 92/58 (69) 100 07/25/20 16:15 89 28 90/62 (71) 100 07/25/20 16:00 Mechanical Ventilator Mechanical Ventilator Mechanical Ventilator 07/25/20 16:00 91 07/25/20 16:00 28 91/56 Mechanical Ventilator 50 07/25/20 16:00 50 07/25/20 16:00 100.5 93 28 91/56 (68) 100 07/25/20 15:57 92 29 91/59 (70) 100 07/25/20 15:45 90 31 85/50 (62) 100 07/25/20 15:35 98 29 55 07/25/20 15:30 99 29 93/56 (68) 100 07/25/20 15:15 100 30 93/58 (70) 100 07/25/20 15:00 101 32 94/56 (69) 100 07/25/20 15:00 32 94/56 Mechanical Ventilator 50 07/25/20 15:00 32 94/56 Mechanical Ventilator 50 07/25/20 14:45 114 29 104/67 (79) 91 07/25/20 14:30 102 26 91/57 (68) 100 07/25/20 14:15 101 32 93/56 (68) 100 07/25/20 14:00 97 26 102/59 (73) 100 07/25/20 14:00 26 102/59 Mechanical Ventilator 55 07/25/20 14:00 26 102/59 Mechanical Ventilator 55 07/25/20 13:00 27 91/57 Mechanical Ventilator 55 07/25/20 13:00 27 91/57 Mechanical Ventilator 55 07/25/20 13:00 100 32 91/57 (68) 100 07/25/20 12:30 94 27 98/59 (72) 100 07/25/20 12:15 98 34 93/63 (73) 100 07/25/20 12:00 100.0 98 31 95/60 (72) 100 07/25/20 12:00 Mechanical Ventilator Mechanical Ventilator Mechanical Ventilator 07/25/20 12:00 100 07/25/20 12:00 55 07/25/20 12:00 27 95/60 Mechanical Ventilator 55 07/25/20 12:00 26 95/60 Mechanical Ventilator 55 07/25/20 11:45 96 29 92/54 (67) 100 07/25/20 11:35 99 32 55 07/25/20 11:30 98 33 92/56 (68) 100 07/25/20 11:15 97 23 88/54 (65) 100 07/25/20 11:00 97 21 89/54 (66) 100 07/25/20 11:00 29 100/58 Mechanical Ventilator 55 07/25/20 11:00 29 100/58 Mechanical Ventilator 55 07/25/20 10:45 100 25 100/58 (72) 100 Intake and Output 07/25/20 07/26/20 19:00 07:00 Intake Total 1166 ml 1087.5 ml Output Total 955 ml 600 ml Balance 211 ml 487.5 ml Free Water 25 ml 90 ml IV Total 1081 ml 817.5 ml Tube Feeding 60 ml 180 ml Output Urine Total 760 ml 600 ml Chest Tube Drainage Total 195 ml General Appearance: no acute distress HEENT: normocephalic, status post trach Respiratory: chest wall non-tender Cardiovascular: normal peripheral pulses Abdomen: normal bowel sounds, other - s/p PEG Laboratory Tests 07/26/20 03:40: White Blood Count 8.8, Red Blood Count 2.60L, Hemoglobin 7.5L, Hematocrit 23.9L, Mean Corpuscular Volume 92, Mean Corpuscular Hemoglobin 28.8, Mean Corpuscular Hemoglobin Concent 31.3L, Red Cell Distribution Width 17.0H, Platelet Count 232, Mean Platelet Volume 7.2, Neutrophils (%) (Auto) , Lymphocytes (%) (Auto) , Monocytes (%) (Auto) , Eosinophils (%) (Auto) , Basophils (%) (Auto) , Sodium Level 143, Potassium Level 3.7, Chloride Level 104, Carbon Dioxide Level 33H, Anion Gap 6, Blood Urea Nitrogen 4L, Creatinine 0.4L, Estimat Glomerular Filtration Rate > 60, Glucose Level 99, Calcium Level 8.1L, Phosphorus Level 2.2L, Magnesium Level 1.8, Total Bilirubin 0.4, Aspartate Amino Transf (AST/SGOT) 28, Alanine Aminotransferase (ALT/SGPT) 18, Alkaline Phosphatase 63, C-Reactive Protein, Quantitative 12.4H, Pro-B-Type Natriuretic Peptide 322H, Total Protein 6.1L, Albumin 2.3L, Globulin 3.8, Albumin/Globulin Ratio 0.6L Current Medications Medications (Trade) Dose Ordered Sig/Zelda Route PRN Reason Start Time Stop Time Status Last Admin Dose Admin Acetaminophen (Tylenol) 650 mg Q4H PRN NG Temp >100.5 06/29/20 10:15 07/29/20 10:14 3/5/21 08:31 Acetaminophen (Tylenol) 650 mg Q6H PRN NG Mild Pain (Pain Scale 1-3) 06/29/20 10:15 07/29/20 10:14 07/22/20 11:56 Calcitonin [place] (Miacalcin) 1 sprays DAILY NASAL 07/22/20 14:00 10/20/20 13:59 07/26/20 08:37 Chlorhexidine Gluconate (Inna-Hex 2%) 1 applic DAILY@2000 TOPIC 07/20/20 20:00 10/18/20 19:59 07/25/20 20:00 Dextrose (Dextrose 50%) 25 ml Q30M PRN IV Hypoglycemia 06/05/20 10:45 09/03/20 10:44 Dextrose (Dextrose 50%) 50 ml Q30M PRN IV Hypoglycemia 06/05/20 10:45 09/03/20 10:44 Dextrose/Sodium Chloride 1,000 ml @ 50 mls/hr Q20H IV 07/25/20 11:15 08/24/20 11:14 07/26/20 08:10 Enoxaparin Sodium (Lovenox) 110 mg EVERY 12 HOURS SUBQ 07/17/20 21:00 10/15/20 20:59 07/23/20 20:19 Fentanyl Citrate 250 ml @ 1 mls/hr Q24H IV 07/25/20 05:00 07/27/20 04:59 07/26/20 08:00 Guaifenesin/ Codeine Phosphate (Robitussin with codeine) 5 ml Q6H PRN NG For Cough 07/14/20 14:15 08/13/20 14:14 07/18/20 21:44 Heparin Sodium/ Sodium Chloride (Heparin 1000 units/500ml Premix) 1,000 unit ONCE PRN INJ radiology use 07/24/20 12:30 07/26/20 12:29 Lansoprazole (Prevacid) 30 mg DAILY GT 07/18/20 09:00 08/09/20 08:59 07/26/20 08:31 Lidocaine HCl (Xylocaine 1% 30ml) 30 ml ONCE PRN INJ radiology use 07/24/20 12:30 07/26/20 12:29 Meropenem 1 gm/ Sodium Chloride 55 ml @ 110 mls/hr Q8H IVPB 07/22/20 12:00 07/29/20 11:59 07/26/20 04:00 Midazolam HCl 200 ml @ 0 mls/hr Q24H PRN IV sedation 07/22/20 14:06 07/29/20 14:05 07/26/20 10:00 Midodrine (Pro-Amatine) 10 mg Q8HR GT 06/30/20 14:00 09/12/20 13:59 07/26/20 05:58 Potassium Phosphate 20 mm/ Sodium Chloride 281.6667 ml @ 46.944 m... ONCE ONCE IV 07/26/20 09:00 07/26/20 14:59 07/26/20 08:35 Quetiapine Fumarate (SEROqueL) 50 mg Q12HR GT 07/16/20 13:30 08/30/20 13:29 07/26/20 08:31 Assessment/Plan Assessment/Plan 1. COVID-19 pneumonia -Intubated 05/28/20 - We will continue broad-spectrum antibiotics. -s/p solumedrol, Rocephin -Continue PEEP 6 ->7 ->5 - Peak airway pressures better - FiO2 100% -> 90 ->80->60 ->40 ->80 ->100 ->70 ->60 -> 50 ->45 ->40 ->50 ->40%; PEEP 7 ->5 - s/p PEG 2. Hyponatremia -Per primary MD 3. Elevated inflammatory markers - has high D dimer; On Lovenox -> Lovenox held given anemia 4. DVT of the right calf - once stable, consider IVC filter per heme vs oral DOAC - was on Lovenox but held given anemia 5. Decreased PEEP S/p trach Reported cuff leak per RN/RT Changed 07/22/20 however still has cuff leak On low dose Levophed; will attempt to wean off Will wean off IV sedation; started Seroquel s/p PEG Required R CT due to PTX 07/22/20 - removal pending less drainage per surgery The care for this patient was discussed with my supervising physician Time spent for this case was approximately 31 minutes Vamshi Garcia Jul 26, 2020 10:41
--- NOTE | 2020-07-26 10:47 | Infectious Diseases Prog Note ---
Assessment/Plan Assessment/Plan antibiotics : meropenem A 1. covid 19 pneumonia s/p remdesivir s/p solumedrol 2. respiratory failure s/p tracheostomy 3. pseudomonas pneumonia 4. leucocytosis improving 5. SBO 6, pneumothorax s/p CT placement P 1. continue meropenem 2. will follow up cultures Subjective ROS Limited/Unobtainable: Yes Allergies: Coded Allergies: No Known Allergies (Unverified , 05/28/20) Objective Last 24 Hour Vital Signs Date Time Temp Pulse Resp B/P (MAP) Pulse Ox O2 Delivery O2 Flow Rate FiO2 07/26/20 10:00 106 33 96/61 (73) 95 07/26/20 10:00 30 99/65 Mechanical Ventilator 45 07/26/20 09:30 103 27 103/59 (74) 95 07/26/20 09:10 101.0 07/26/20 09:00 99 33 101/60 (74) 98 07/26/20 08:39 99 41 45 07/26/20 08:30 101 34 103/65 (78) 99 07/26/20 08:00 50 07/26/20 08:00 101.3 105 33 99/66 (77) 98 07/26/20 08:00 31 99/66 Mechanical Ventilator 50 07/26/20 08:00 30 99/66 Mechanical Ventilator 50 07/26/20 07:30 97 29 100/64 (76) 99 07/26/20 07:25 96 35 50 07/26/20 07:00 28 100/64 Mechanical Ventilator 40 07/26/20 07:00 28 100/64 Mechanical Ventilator 40 07/26/20 07:00 95 28 100/64 (76) 100 07/26/20 06:30 96 30 103/63 (76) 100 07/26/20 06:30 96 30 07/26/20 06:00 25 103/69 Mechanical Ventilator 50 07/26/20 06:00 25 103/69 Mechanical Ventilator 50 07/26/20 06:00 96 25 103/69 (80) 100 07/26/20 05:00 94 30 101/65 (77) 100 07/26/20 05:00 30 101/65 Mechanical Ventilator 50 07/26/20 05:00 30 101/65 Mechanical Ventilator 50 07/26/20 04:30 93 26 96/65 (75) 100 07/26/20 04:00 Mechanical Ventilator Mechanical Ventilator Mechanical Ventilator 07/26/20 04:00 96 25 96/68 (77) 100 07/26/20 04:00 96 07/26/20 04:00 25 96/68 Mechanical Ventilator 50 07/26/20 04:00 25 96/68 Mechanical Ventilator 50 07/26/20 04:00 50 07/26/20 03:42 92 30 50 07/26/20 03:30 93 32 96/59 (71) 100 07/26/20 03:00 91 28 94/63 (73) 100 07/26/20 03:00 28 94/63 Mechanical Ventilator 50 07/26/20 03:00 28 94/63 Mechanical Ventilator 50 07/26/20 02:30 94 30 96/61 (73) 100 07/26/20 02:00 92 28 98/61 (73) 100 07/26/20 02:00 28 98/61 Mechanical Ventilator 50 07/26/20 02:00 28 98/61 Mechanical Ventilator 50 07/26/20 01:30 93 33 50 07/26/20 01:30 91 30 103/64 (77) 100 07/26/20 01:00 91 28 96/60 (72) 100 07/26/20 01:00 28 96/60 Mechanical Ventilator 50 07/26/20 01:00 28 96/60 Mechanical Ventilator 50 07/26/20 01:00 28 96/60 Mechanical Ventilator 50 07/26/20 01:00 28 96/60 Mechanical Ventilator 50 07/26/20 00:00 50 07/26/20 00:00 91 30 97/62 (74) 100 07/26/20 00:00 91 07/26/20 00:00 30 97/62 Mechanical Ventilator 50 07/26/20 00:00 30 97/62 Mechanical Ventilator 50 07/26/20 00:00 Mechanical Ventilator Mechanical Ventilator Mechanical Ventilator 07/25/20 23:30 92 28 97/63 (74) 100 07/25/20 23:24 93 30 50 07/25/20 23:00 98 30 100/61 (74) 100 07/25/20 23:00 30 100/61 Mechanical Ventilator 50.0 07/25/20 22:30 101 30 97/60 (72) 99 07/25/20 22:00 104 31 97/59 (72) 100 07/25/20 22:00 31 97/59 Mechanical Ventilator 40 07/25/20 21:30 102 29 97/60 (72) 99 07/25/20 21:24 97 30 50 07/25/20 21:00 30 98/64 Mechanical Ventilator 50.0 07/25/20 21:00 101 30 98/64 (75) 99 07/25/20 20:45 100 28 95/58 (70) 98 07/25/20 20:45 28 95/58 Mechanical Ventilator 50 07/25/20 20:30 102 35 101/65 (77) 99 07/25/20 20:30 35 101/65 Mechanical Ventilator 50 07/25/20 20:15 103 29 104/63 (77) 100 07/25/20 20:15 29 104/63 Mechanical Ventilator 50 07/25/20 20:00 Mechanical Ventilator Mechanical Ventilator Mechanical Ventilator 07/25/20 20:00 102 33 105/65 (78) 100 07/25/20 20:00 33 105/65 Mechanical Ventilator 50 07/25/20 20:00 33 105/65 Mechanical Ventilator 50 07/25/20 19:30 100 31 94/61 (72) 100 07/25/20 19:27 100 32 50 07/25/20 19:00 104 29 102/68 (79) 100 07/25/20 19:00 30 102/68 Mechanical Ventilator 50 07/25/20 18:45 92 27 91/57 (68) 100 07/25/20 18:30 90 26 93/63 (73) 100 07/25/20 18:15 91 26 91/58 (69) 100 07/25/20 18:00 28 91/58 Mechanical Ventilator 50 07/25/20 18:00 88 29 87/55 (66) 100 07/25/20 17:45 92 28 91/59 (70) 100 07/25/20 17:30 93 28 91/57 (68) 100 07/25/20 17:15 94 30 91/62 (72) 100 07/25/20 17:00 28 92/58 Mechanical Ventilator 50 07/25/20 17:00 93 28 92/58 (69) 100 07/25/20 16:15 89 28 90/62 (71) 100 07/25/20 16:00 Mechanical Ventilator Mechanical Ventilator Mechanical Ventilator 07/25/20 16:00 91 07/25/20 16:00 28 91/56 Mechanical Ventilator 50 07/25/20 16:00 50 07/25/20 16:00 100.5 93 28 91/56 (68) 100 07/25/20 15:57 92 29 91/59 (70) 100 07/25/20 15:45 90 31 85/50 (62) 100 07/25/20 15:35 98 29 55 07/25/20 15:30 99 29 93/56 (68) 100 07/25/20 15:15 100 30 93/58 (70) 100 07/25/20 15:00 101 32 94/56 (69) 100 07/25/20 15:00 32 94/56 Mechanical Ventilator 50 07/25/20 15:00 32 94/56 Mechanical Ventilator 50 07/25/20 14:45 114 29 104/67 (79) 91 07/25/20 14:30 102 26 91/57 (68) 100 07/25/20 14:15 101 32 93/56 (68) 100 07/25/20 14:00 97 26 102/59 (73) 100 07/25/20 14:00 26 102/59 Mechanical Ventilator 55 07/25/20 14:00 26 102/59 Mechanical Ventilator 55 07/25/20 13:00 27 91/57 Mechanical Ventilator 55 07/25/20 13:00 27 91/57 Mechanical Ventilator 55 07/25/20 13:00 100 32 91/57 (68) 100 07/25/20 12:30 94 27 98/59 (72) 100 07/25/20 12:15 98 34 93/63 (73) 100 07/25/20 12:00 100.0 98 31 95/60 (72) 100 07/25/20 12:00 Mechanical Ventilator Mechanical Ventilator Mechanical Ventilator 07/25/20 12:00 100 07/25/20 12:00 55 07/25/20 12:00 27 95/60 Mechanical Ventilator 55 07/25/20 12:00 26 95/60 Mechanical Ventilator 55 07/25/20 11:45 96 29 92/54 (67) 100 07/25/20 11:35 99 32 55 07/25/20 11:30 98 33 92/56 (68) 100 07/25/20 11:15 97 23 88/54 (65) 100 07/25/20 11:00 97 21 89/54 (66) 100 07/25/20 11:00 29 100/58 Mechanical Ventilator 55 07/25/20 11:00 29 100/58 Mechanical Ventilator 55 07/25/20 10:45 100 25 100/58 (72) 100 Height (Feet): 5 Height (Inches): 5.00 Weight (Pounds): 223 HEENT: status post trach Respiratory/Chest: lungs clear, other - CT Cardiovascular: normal rate, regular rhythm, no gallop/murmur Abdomen: soft, non tender Extremities: other - + edema, left arm PICC Laboratory Tests Test 07/26/20 03:40 White Blood Count 8.8 K/UL (4.8-10.8) Red Blood Count 2.60 M/UL (4.20-5.40) L Hemoglobin 7.5 G/DL (12.0-16.0) L Hematocrit 23.9 % (37.0-47.0) L Mean Corpuscular Volume 92 FL (80-99) Mean Corpuscular Hemoglobin 28.8 PG (27.0-31.0) Mean Corpuscular Hemoglobin Concent 31.3 G/DL (32.0-36.0) L Red Cell Distribution Width 17.0 % (11.6-14.8) H Platelet Count 232 K/UL (150-450) Mean Platelet Volume 7.2 FL (6.5-10.1) Neutrophils (%) (Auto) % (45.0-75.0) Lymphocytes (%) (Auto) % (20.0-45.0) Monocytes (%) (Auto) % (1.0-10.0) Eosinophils (%) (Auto) % (0.0-3.0) Basophils (%) (Auto) % (0.0-2.0) Sodium Level 143 MMOL/L (136-145) Potassium Level 3.7 MMOL/L (3.5-5.1) Chloride Level 104 MMOL/L (98-107) Carbon Dioxide Level 33 MMOL/L (21-32) H Anion Gap 6 mmol/L (5-15) Blood Urea Nitrogen 4 mg/dL (7-18) L Creatinine 0.4 MG/DL (0.55-1.30) L Estimat Glomerular Filtration Rate > 60 mL/min (>60) Glucose Level 99 MG/DL (74-106) Calcium Level 8.1 MG/DL (8.5-10.1) L Phosphorus Level 2.2 MG/DL (2.5-4.9) L Magnesium Level 1.8 MG/DL (1.8-2.4) Total Bilirubin 0.4 MG/DL (0.2-1.0) Aspartate Amino Transf (AST/SGOT) 28 U/L (15-37) Alanine Aminotransferase (ALT/SGPT) 18 U/L (12-78) Alkaline Phosphatase 63 U/L (46-116) C-Reactive Protein, Quantitative 12.4 mg/dL (0.00-0.90) H Pro-B-Type Natriuretic Peptide 322 pg/mL (0-125) H Total Protein 6.1 G/DL (6.4-8.2) L Albumin 2.3 G/DL (3.4-5.0) L Globulin 3.8 g/dL Albumin/Globulin Ratio 0.6 (1.0-2.7) L Current Medications Medications (Trade) Dose Ordered Sig/Zelda Route PRN Reason Start Time Stop Time Status Last Admin Dose Admin Acetaminophen (Tylenol) 650 mg Q4H PRN NG Temp >100.5 06/29/20 10:15 07/29/20 10:14 07/26/20 08:31 Acetaminophen (Tylenol) 650 mg Q6H PRN NG Mild Pain (Pain Scale 1-3) 06/29/20 10:15 07/29/20 10:14 07/22/20 11:56 Calcitonin [place] (Miacalcin) 1 sprays DAILY NASAL 07/22/20 14:00 10/20/20 13:59 07/26/20 08:37 Chlorhexidine Gluconate (Inna-Hex 2%) 1 applic DAILY@2000 TOPIC 07/20/20 20:00 10/18/20 19:59 07/25/20 20:00 Dextrose (Dextrose 50%) 25 ml Q30M PRN IV Hypoglycemia 06/05/20 10:45 09/03/20 10:44 Dextrose (Dextrose 50%) 50 ml Q30M PRN IV Hypoglycemia 06/05/20 10:45 09/03/20 10:44 Dextrose/Sodium Chloride 1,000 ml @ 50 mls/hr Q20H IV 07/25/20 11:15 08/24/20 11:14 07/26/20 08:10 Enoxaparin Sodium (Lovenox) 110 mg EVERY 12 HOURS SUBQ 07/17/20 21:00 10/15/20 20:59 07/23/20 20:19 Fentanyl Citrate 250 ml @ 1 mls/hr Q24H IV 07/25/20 05:00 07/27/20 04:59 07/26/20 08:00 Guaifenesin/ Codeine Phosphate (Robitussin with codeine) 5 ml Q6H PRN NG For Cough 07/14/20 14:15 08/13/20 14:14 07/18/20 21:44 Heparin Sodium/ Sodium Chloride (Heparin 1000 units/500ml Premix) 1,000 unit ONCE PRN INJ radiology use 07/24/20 12:30 07/26/20 12:29 Lansoprazole (Prevacid) 30 mg DAILY GT 07/18/20 09:00 08/09/20 08:59 07/26/20 08:31 Lidocaine HCl (Xylocaine 1% 30ml) 30 ml ONCE PRN INJ radiology use 07/24/20 12:30 07/26/20 12:29 Meropenem 1 gm/ Sodium Chloride 55 ml @ 110 mls/hr Q8H IVPB 07/22/20 12:00 07/29/20 11:59 07/26/20 04:00 Midazolam HCl 200 ml @ 0 mls/hr Q24H PRN IV sedation 07/22/20 14:06 07/29/20 14:05 07/26/20 10:00 Midodrine (Pro-Amatine) 10 mg Q8HR GT 06/30/20 14:00 09/12/20 13:59 07/26/20 05:58 Potassium Phosphate 20 mm/ Sodium Chloride 281.6667 ml @ 46.944 m... ONCE ONCE IV 07/26/20 09:00 07/26/20 14:59 07/26/20 08:35 Quetiapine Fumarate (SEROqueL) 50 mg Q12HR GT 07/16/20 13:30 08/30/20 13:29 07/26/20 08:31 Fili Mcelroy MD Jul 26, 2020 10:47
--- NOTE | 2020-07-26 11:11 | Surgery Progress Note ---
Surgery Progress Note Subjective Procedure Performed right tube chest tube insertion Additional Comments cxr improved overall improved chest tube functional 195cc output over 24hrs Objective Last 24 Hour Vital Signs Date Time Temp Pulse Resp B/P (MAP) Pulse Ox O2 Delivery O2 Flow Rate FiO2 07/26/20 11:00 23 97/63 Mechanical Ventilator 45 07/26/20 11:00 23 97/63 Mechanical Ventilator 45 07/26/20 11:00 102 33 97/63 (74) 97 07/26/20 10:30 107 32 97/63 (74) 96 07/26/20 10:00 106 33 96/61 (73) 95 07/26/20 10:00 33 96/61 Mechanical Ventilator 45 07/26/20 10:00 30 99/65 Mechanical Ventilator 45 07/26/20 09:30 103 27 103/59 (74) 95 07/26/20 09:10 101.0 07/26/20 09:00 99 33 101/60 (74) 98 07/26/20 09:00 33 101/60 Mechanical Ventilator 45 07/26/20 09:00 33 101/60 Mechanical Ventilator 45 07/26/20 08:39 99 41 45 07/26/20 08:30 101 34 103/65 (78) 99 07/26/20 08:00 50 07/26/20 08:00 99 07/26/20 08:00 101.3 105 33 99/66 (77) 98 07/26/20 08:00 Mechanical Ventilator Mechanical Ventilator Mechanical Ventilator 07/26/20 08:00 31 99/66 Mechanical Ventilator 50 07/26/20 08:00 30 99/66 Mechanical Ventilator 50 07/26/20 07:30 97 29 100/64 (76) 99 07/26/20 07:25 96 35 50 07/26/20 07:00 28 100/64 Mechanical Ventilator 40 07/26/20 07:00 28 100/64 Mechanical Ventilator 40 07/26/20 07:00 95 28 100/64 (76) 100 07/26/20 06:30 96 30 103/63 (76) 100 07/26/20 06:30 96 30 07/26/20 06:00 25 103/69 Mechanical Ventilator 50 07/26/20 06:00 25 103/69 Mechanical Ventilator 50 07/26/20 06:00 96 25 103/69 (80) 100 07/26/20 05:00 94 30 101/65 (77) 100 07/26/20 05:00 30 101/65 Mechanical Ventilator 50 07/26/20 05:00 30 101/65 Mechanical Ventilator 50 07/26/20 04:30 93 26 96/65 (75) 100 07/26/20 04:00 Mechanical Ventilator Mechanical Ventilator Mechanical Ventilator 07/26/20 04:00 96 25 96/68 (77) 100 07/26/20 04:00 96 07/26/20 04:00 25 96/68 Mechanical Ventilator 50 07/26/20 04:00 25 96/68 Mechanical Ventilator 50 07/26/20 04:00 50 07/26/20 03:42 92 30 50 07/26/20 03:30 93 32 96/59 (71) 100 07/26/20 03:00 91 28 94/63 (73) 100 07/26/20 03:00 28 94/63 Mechanical Ventilator 50 07/26/20 03:00 28 94/63 Mechanical Ventilator 50 07/26/20 02:30 94 30 96/61 (73) 100 07/26/20 02:00 92 28 98/61 (73) 100 07/26/20 02:00 28 98/61 Mechanical Ventilator 50 07/26/20 02:00 28 98/61 Mechanical Ventilator 50 07/26/20 01:30 93 33 50 07/26/20 01:30 91 30 103/64 (77) 100 07/26/20 01:00 91 28 96/60 (72) 100 07/26/20 01:00 28 96/60 Mechanical Ventilator 50 07/26/20 01:00 28 96/60 Mechanical Ventilator 50 07/26/20 01:00 28 96/60 Mechanical Ventilator 50 07/26/20 01:00 28 96/60 Mechanical Ventilator 50 07/26/20 00:00 50 07/26/20 00:00 91 30 97/62 (74) 100 07/26/20 00:00 91 07/26/20 00:00 30 97/62 Mechanical Ventilator 50 07/26/20 00:00 30 97/62 Mechanical Ventilator 50 07/26/20 00:00 Mechanical Ventilator Mechanical Ventilator Mechanical Ventilator 07/25/20 23:30 92 28 97/63 (74) 100 07/25/20 23:24 93 30 50 07/25/20 23:00 98 30 100/61 (74) 100 07/25/20 23:00 30 100/61 Mechanical Ventilator 50.0 07/25/20 22:30 101 30 97/60 (72) 99 07/25/20 22:00 104 31 97/59 (72) 100 07/25/20 22:00 31 97/59 Mechanical Ventilator 40 07/25/20 21:30 102 29 97/60 (72) 99 07/25/20 21:24 97 30 50 07/25/20 21:00 30 98/64 Mechanical Ventilator 50.0 07/25/20 21:00 101 30 98/64 (75) 99 07/25/20 20:45 100 28 95/58 (70) 98 07/25/20 20:45 28 95/58 Mechanical Ventilator 50 07/25/20 20:30 102 35 101/65 (77) 99 07/25/20 20:30 35 101/65 Mechanical Ventilator 50 07/25/20 20:15 103 29 104/63 (77) 100 07/25/20 20:15 29 104/63 Mechanical Ventilator 50 07/25/20 20:00 Mechanical Ventilator Mechanical Ventilator Mechanical Ventilator 07/25/20 20:00 102 33 105/65 (78) 100 07/25/20 20:00 33 105/65 Mechanical Ventilator 50 07/25/20 20:00 33 105/65 Mechanical Ventilator 50 07/25/20 19:30 100 31 94/61 (72) 100 07/25/20 19:27 100 32 50 07/25/20 19:00 104 29 102/68 (79) 100 07/25/20 19:00 30 102/68 Mechanical Ventilator 50 07/25/20 18:45 92 27 91/57 (68) 100 07/25/20 18:30 90 26 93/63 (73) 100 07/25/20 18:15 91 26 91/58 (69) 100 07/25/20 18:00 28 91/58 Mechanical Ventilator 50 07/25/20 18:00 88 29 87/55 (66) 100 07/25/20 17:45 92 28 91/59 (70) 100 07/25/20 17:30 93 28 91/57 (68) 100 07/25/20 17:15 94 30 91/62 (72) 100 07/25/20 17:00 28 92/58 Mechanical Ventilator 50 07/25/20 17:00 93 28 92/58 (69) 100 07/25/20 16:15 89 28 90/62 (71) 100 07/25/20 16:00 Mechanical Ventilator Mechanical Ventilator Mechanical Ventilator 07/25/20 16:00 91 07/25/20 16:00 28 91/56 Mechanical Ventilator 50 07/25/20 16:00 50 07/25/20 16:00 100.5 93 28 91/56 (68) 100 07/25/20 15:57 92 29 91/59 (70) 100 07/25/20 15:45 90 31 85/50 (62) 100 07/25/20 15:35 98 29 55 07/25/20 15:30 99 29 93/56 (68) 100 07/25/20 15:15 100 30 93/58 (70) 100 07/25/20 15:00 101 32 94/56 (69) 100 07/25/20 15:00 32 94/56 Mechanical Ventilator 50 07/25/20 15:00 32 94/56 Mechanical Ventilator 50 07/25/20 14:45 114 29 104/67 (79) 91 07/25/20 14:30 102 26 91/57 (68) 100 07/25/20 14:15 101 32 93/56 (68) 100 07/25/20 14:00 97 26 102/59 (73) 100 07/25/20 14:00 26 102/59 Mechanical Ventilator 55 07/25/20 14:00 26 102/59 Mechanical Ventilator 55 07/25/20 13:00 27 91/57 Mechanical Ventilator 55 07/25/20 13:00 27 91/57 Mechanical Ventilator 55 07/25/20 13:00 100 32 91/57 (68) 100 07/25/20 12:30 94 27 98/59 (72) 100 07/25/20 12:15 98 34 93/63 (73) 100 07/25/20 12:00 100.0 98 31 95/60 (72) 100 07/25/20 12:00 Mechanical Ventilator Mechanical Ventilator Mechanical Ventilator 07/25/20 12:00 100 07/25/20 12:00 55 07/25/20 12:00 27 95/60 Mechanical Ventilator 55 07/25/20 12:00 26 95/60 Mechanical Ventilator 55 07/25/20 11:45 96 29 92/54 (67) 100 07/25/20 11:35 99 32 55 07/25/20 11:30 98 33 92/56 (68) 100 07/25/20 11:15 97 23 88/54 (65) 100 I&O Intake and Output 07/25/20 07/26/20 19:00 07:00 Intake Total 1166 ml 1087.5 ml Output Total 955 ml 600 ml Balance 211 ml 487.5 ml Free Water 25 ml 90 ml IV Total 1081 ml 817.5 ml Tube Feeding 60 ml 180 ml Output Urine Total 760 ml 600 ml Chest Tube Drainage Total 195 ml Dressing: other Wound: other Cardiovascular: RSR Respiratory: decreased breath sounds Abdomen: soft, flat, non-tender, present bowel sounds, non-distended Extremities: no edema, no tenderness, no cyanosis Laboratory Tests Test 07/26/20 03:40 White Blood Count 8.8 K/UL (4.8-10.8) Red Blood Count 2.60 M/UL (4.20-5.40) L Hemoglobin 7.5 G/DL (12.0-16.0) L Hematocrit 23.9 % (37.0-47.0) L Mean Corpuscular Volume 92 FL (80-99) Mean Corpuscular Hemoglobin 28.8 PG (27.0-31.0) Mean Corpuscular Hemoglobin Concent 31.3 G/DL (32.0-36.0) L Red Cell Distribution Width 17.0 % (11.6-14.8) H Platelet Count 232 K/UL (150-450) Mean Platelet Volume 7.2 FL (6.5-10.1) Neutrophils (%) (Auto) % (45.0-75.0) Lymphocytes (%) (Auto) % (20.0-45.0) Monocytes (%) (Auto) % (1.0-10.0) Eosinophils (%) (Auto) % (0.0-3.0) Basophils (%) (Auto) % (0.0-2.0) Sodium Level 143 MMOL/L (136-145) Potassium Level 3.7 MMOL/L (3.5-5.1) Chloride Level 104 MMOL/L (98-107) Carbon Dioxide Level 33 MMOL/L (21-32) H Anion Gap 6 mmol/L (5-15) Blood Urea Nitrogen 4 mg/dL (7-18) L Creatinine 0.4 MG/DL (0.55-1.30) L Estimat Glomerular Filtration Rate > 60 mL/min (>60) Glucose Level 99 MG/DL (74-106) Calcium Level 8.1 MG/DL (8.5-10.1) L Phosphorus Level 2.2 MG/DL (2.5-4.9) L Magnesium Level 1.8 MG/DL (1.8-2.4) Total Bilirubin 0.4 MG/DL (0.2-1.0) Aspartate Amino Transf (AST/SGOT) 28 U/L (15-37) Alanine Aminotransferase (ALT/SGPT) 18 U/L (12-78) Alkaline Phosphatase 63 U/L (46-116) C-Reactive Protein, Quantitative 12.4 mg/dL (0.00-0.90) H Pro-B-Type Natriuretic Peptide 322 pg/mL (0-125) H Total Protein 6.1 G/DL (6.4-8.2) L Albumin 2.3 G/DL (3.4-5.0) L Globulin 3.8 g/dL Albumin/Globulin Ratio 0.6 (1.0-2.7) L Plan Problems: (1) Respiratory distress (2) Respiratory failure Assessment & Plan: 50-year-old female Covid positive respiratory insufficiency intubated on ventilatory support declining. Leukocytosis increase oxygen requirement. Vent settings per pulmonology reviewed identified and agree. Unfortunately further surgical invention at this time is not appropriate as patient is not a candidate and her current condition. Prognosis overall guarded. Tracheostomy can be considered in the future if recovering or shows improvement and requires unable to be weaned from ventilator support. Currently okay for nutritional optimization with NG tube. Will need significant monitoring for decubitus formation given patient's size and condition. Okay for air mattress tolerated. Turn every 2 hours as tolerated. Patient is otherwise critically ill and blood pressure labile. Will need to monitor closely.Bilateral infiltrates are again demonstrated. Stable tube and line positions. will need trach will need to wean vent first no cuff leak trach okay Improving weaning well DC planning placement much improved peg placement trach changed acls now resuscitated (3) Hypoxia (4) Pneumonia due to COVID-19 virus Assessment & Plan: ++ as per pulm and ID (5) Diabetes mellitus out of control Assessment & Plan: DAILY ESTIMATED NEEDS: Needs based on Critical care, obesity 11-14kcal/kg actual body wt (140kg) kcals/kg 6960-2823 total kcals 1.5-2.0g prot/kg IBW (64.5kg) g protein/kg 96-129 g total protein 25-30ml/kg abw (83kg) mL/kg 3171-3124 total fluid mLs NUTRITION DIAGNOSIS: Swallowing difficulty R/T respiratory failure as evidenced by pt orally intubated and sedated, on OGT feeds. CURRENT TF: Vital 1.2 goal of 60ml/hr ENTERAL NUTRITION RECOMMENDATIONS: Vital AF 1.2 @ 60ml/hr x 24 hrs to provide 1440ml, 1728kcal, 108g prot, 1168ml free water * Maintain current critical care and carb controlled TF formula of Vital AF * TF @ goal meeds 100% est kcal/prot needs * HOB over 30 degrees/ water flush per MD TF may be lowered to 55ml/hr for improved BG control while maintaining Kcal and pro needs. ADDITIONAL RECOMMENDATIONS: * Calibrated bedscale wt * Monitor Propofol rate, need for TF adjustment-> now off * Monitor BGs closely : now improved, on novolog q 6rs + NISS * Monitor lytes- K elevated, monitor need for TF change * Rec bowel regimen- now w/ rectal tube . (6) Pneumothorax on right Assessment & Plan: right tension pneumothorax trach changed for cuff leak and decreased volumes pressures high after and ptx tension acls resuscitated right chest tube placed ptx resolved cont chest tube to suction am cxr wean vent Right chest tube, tracheostomy, nasogastric tube remain. Previously demonstrated subcutaneous emphysema has nearly completely cleared, with only questionably small residual in the left supraclavicular fossa. Extensive bilateral infiltrates persist. There is no pneumothorax currently. The heart is borderline enlarged. Pneumoperitoneum persists, may be slightly decreased Impression: Markedly improved subcutaneous emphysema Unchanged bilateral infiltrates Persistent but perhaps slightly decreased pneumoperitoneum (7) DEVENDRA (acute kidney injury) (8) Morbid obesity Dylanglenmiguel aAz farias Jul 26, 2020 11:11
--- NOTE | 2020-07-26 11:35 | Diagnostic Imaging Report ---
Indication: Shortness of breath Technique: One view of the chest Comparison: 07/25/2020 Findings: Less optimal inspiration. Tracheostomy, right chest tube, left arm PICC remain. Extensive bilateral infiltrates are probably unchanged allowing for differences in degree of inspiration. Free air under the right hemidiaphragm persists. Previously demonstrated free air under the left hemidiaphragm is no longer evident. Impression: Decreased pneumoperitoneum. Otherwise little bladder changer one day
--- NOTE | 2020-07-26 13:58 | Nephrology Progress Note ---
Assessment/Plan Problem List: (1) DEVENDRA (acute kidney injury) (2) Morbid obesity (3) Diabetes mellitus out of control (4) Pneumonia due to COVID-19 virus (5) Respiratory failure Assessment Acute renal failure Obstructive uropathy, clogged Lennon Respiratory failure COVID-19 pneumonia Morbid obesity Plan July 26: Remains in ICU. Remains full code. Trach to vent. Labs reviewed. Abnormal electrolytes addressed. Continue per consultants. July 25: Seen in ICU. Received PEG yesterday. Has trach connected to vent. Full code. Labs reviewed. Albumin bolus given. IV started on table feeding via GT tube initiated. July 24: Patient seen in ICU. Status quo. Has trach. Being ventilated. Has right chest tube. Labs reviewed. Continue per consultants. Low magnesium and low phosphorus replaced. July 23: Patient seen in ICU. Discussed with RN. Yesterday the patient developed tension pneumothorax. Patient has a chest tube today. Labs reviewed. Renal parameters stable. Medication list reviewed. July 22: Status quo. Labs reviewed. Serum calcium elevated. Vitamin D discontinued. Pamidronate 60 mg IV given. Continue to monitor calcium and phosphorus. Patient due for PEG today. July 21: Status quo. Awake responsive. Labs reviewed. Medication list reviewed. Stable from renal standpoint of view. Due for PEG tomorrow. Continue her current management. July 20: Status quo. PEG procedure deferred to July 22. Patient remains full code. Abnormal electrolytes addressed. FiO2 50% unchanged. Continue per consultants. July 19: Status quo. Due for PEG insertion today. Remains full code. Trach and vent. Low magnesium addressed. Continue per consultants. FiO2 50%. July 18: Status quo. Labs reviewed. Low potassium addressed. Continue per consultants. Remains full code. July 17: Remains full code. Trach to vent. FiO2 40%. Labs reviewed. Low potassium addressed. Continue per consultants. July 16: Status quo. FiO2 45%. Discussed with RN. Continue to taper her mind altering medications and sedatives. Stable from renal standpoint of view. Abnormal electrolytes addressed. July 15: Full code. FiO2 50%. Intubated on ventilator. No labs drawn today. Continue per consultants. July 14: Status quo. FiO2 50%. Labs reviewed. Renal parameters stable. Continue per current treatment plan and consultants. Medication list reviewed. July 13: FiO2 60% unchanged. Labs reviewed. Renal parameters stable. Medication list reviewed. Continue per consultants. July 12: Full code. Labs reviewed. Normal electrolytes addressed. Continue per pulmonary. Medication list reviewed. July 11: Remains full code. On ventilator. FiO2 down to 65%. Renal parameters stable. Low magnesium addressed. Continue her current management. July 10: Full code. On ventilator. FiO2 70%. Hemoglobin mid sevens. Renal parameters stable. Continue per consultants. July 09: Labs reviewed. Renal parameters stable. FiO2 80% unchanged. Continue per pulmonary. July 08: Labs reviewed. Renal parameters and electrolytes stable. ABG suggestive of high PCO2. At this time patient is on FiO2 of 80%. Continue per pulmonary. Continue to monitor renal parameters. July 07: No CHEM panel drawn today. More potassium given. Continue to monitor renal parameters. Continue per consultants. Discussed with RAKEL Veras. July 06: Low potassium addressed. Albumin bolus for low BP given. Patient remains full code. Continue to monitor electrolytes and renal parameters. Continue per consultants. Hemoglobin low today, transfusion per clinical psychologist private practice. July 05: Trach to vent. FiO2 80%. Renal parameters stable. PCO2 remains high at 44. Continue to monitor renal parameters. July 04: Patient now trach. Full code. Labs reviewed. Renal parameters stable. Low magnesium addressed. July 03: Intubated. Full code. Labs reviewed. Abnormal electrolytes addressed. Continue per consultants. Overall status unchanged. July 02: Remains intubated. Remains full code. Remains on FiO2 of 70%. Labs reviewed. Abnormal electrolytes addressed. Continue per pulmonary. July 01: Remains on 70% FiO2. Full code. Intubated on ventilator. Retaining CO2. Discussed with RN. Will do ABG today. Albumin bolus given. 1 dose of Diamox given. June 30: Status quo. Labs reviewed. Abnormal electrolytes addressed. Remains full code. Remains on ventilator. Magnesium sulfate 4 gram IVPB given. June 29: Full code. Intubated on ventilator. Labs reviewed. Stable from renal standpoint of view. Continue per consultants. June 28: Remains full code. Remains intubated on ventilator. Labs reviewed. Vitamin D supplement ordered. Continue to monitor renal parameters. Continue per consultants. June 27: Remains full code. Intubated on ventilator. Labs reviewed. Abnormal electrolyte addressed. Continue to monitor renal parameters and electrolytes. Continue per consultants. June 26: Labs reviewed. Remains full code. Remains intubated. Back on NGT feeding. Continue to monitor renal parameters. June 25: Labs reviewed. Renal parameters stable. Remains full code. Due to positional status patient could not be fed via NG tube. Starting TPN? Is being entertained. Continue per consultants. June 24: Labs reviewed. Renal parameters stable. Remains full code. Remains intubated on ventilator. Continue per consultants. June 23: Labs reviewed. Renal parameters stable. Discussed with RN. Abnormal electrolyte addressed. Remains full code. Remains on ventilator. Continue per consultants. June 22: Labs reviewed. Low potassium addressed. Discussed with RAKEL Moran. Patient full code. Remains on ventilator. Continue to monitor renal parameters. June 21. Labs reviewed. Abnormal electrolyte addressed. Full code. Remains on ventilator. Medication list reviewed. Continue per pulmonary management. DC IV fluid, resume Lasix daily, check chest x-ray. June 20: Labs reviewed. Abnormal electrolytes. Patient remains full code. Continue per consultants. Noted and addressed June 19: Labs reviewed. Abnormal electrolytes noted and addressed. Remains intubated on ventilator. Remains full code. June 18: Labs reviewed. Remains intubated on ventilator. Full code. Abnormal electrolyte addressed. Continue as is. June 17: Labs reviewed. Abnormal electrolytes addressed. Patient remains full code and intubated on ventilator. Continue per consultants. Renal parameters are within normal limits. June 16: Labs reviewed. Potassium chloride replaced. Remains full code. Remains intubated on ventilator. Continue per consultants. Continue to monitor renal parameters. June 15: Labs reviewed. Serum creatinine 1. Stable from renal standpoint to view. Continue per consultants. June 14: Labs reviewed. Full code. Serum creatinine of 3.5 down to 1.4. Low potassium addressed. Continue per current treatment plan. Continue to monitor renal parameters. Midodrine started. Albumin bolus given. Previously: DC Lasix drip Increase Protonix dose Monitor renal parameters, electrolytes Per orders Subjective ROS Limited/Unobtainable: Yes Objective Objective Last 24 Hour Vital Signs Date Time Temp Pulse Resp B/P (MAP) Pulse Ox O2 Delivery O2 Flow Rate FiO2 07/26/20 12:00 45 07/26/20 11:00 23 97/63 Mechanical Ventilator 45 07/26/20 11:00 23 97/63 Mechanical Ventilator 45 07/26/20 11:00 102 33 97/63 (74) 97 07/26/20 10:30 107 32 97/63 (74) 96 07/26/20 10:00 106 33 96/61 (73) 95 07/26/20 10:00 33 96/61 Mechanical Ventilator 45 07/26/20 10:00 30 99/65 Mechanical Ventilator 45 07/26/20 09:30 103 27 103/59 (74) 95 07/26/20 09:10 101.0 07/26/20 09:00 99 33 101/60 (74) 98 07/26/20 09:00 33 101/60 Mechanical Ventilator 45 07/26/20 09:00 33 101/60 Mechanical Ventilator 45 07/26/20 08:39 99 41 45 07/26/20 08:30 101 34 103/65 (78) 99 07/26/20 08:00 50 07/26/20 08:00 99 07/26/20 08:00 101.3 105 33 99/66 (77) 98 07/26/20 08:00 Mechanical Ventilator Mechanical Ventilator Mechanical Ventilator 07/26/20 08:00 31 99/66 Mechanical Ventilator 50 07/26/20 08:00 30 99/66 Mechanical Ventilator 50 07/26/20 07:30 97 29 100/64 (76) 99 07/26/20 07:25 96 35 50 07/26/20 07:00 28 100/64 Mechanical Ventilator 40 07/26/20 07:00 28 100/64 Mechanical Ventilator 40 07/26/20 07:00 95 28 100/64 (76) 100 07/26/20 06:30 96 30 103/63 (76) 100 07/26/20 06:30 96 30 07/26/20 06:00 25 103/69 Mechanical Ventilator 50 07/26/20 06:00 25 103/69 Mechanical Ventilator 50 07/26/20 06:00 96 25 103/69 (80) 100 07/26/20 05:00 94 30 101/65 (77) 100 07/26/20 05:00 30 101/65 Mechanical Ventilator 50 07/26/20 05:00 30 101/65 Mechanical Ventilator 50 07/26/20 04:30 93 26 96/65 (75) 100 07/26/20 04:00 Mechanical Ventilator Mechanical Ventilator Mechanical Ventilator 07/26/20 04:00 96 25 96/68 (77) 100 07/26/20 04:00 96 07/26/20 04:00 25 96/68 Mechanical Ventilator 50 07/26/20 04:00 25 96/68 Mechanical Ventilator 50 07/26/20 04:00 50 07/26/20 03:42 92 30 50 07/26/20 03:30 93 32 96/59 (71) 100 07/26/20 03:00 91 28 94/63 (73) 100 07/26/20 03:00 28 94/63 Mechanical Ventilator 50 07/26/20 03:00 28 94/63 Mechanical Ventilator 50 07/26/20 02:30 94 30 96/61 (73) 100 07/26/20 02:00 92 28 98/61 (73) 100 07/26/20 02:00 28 98/61 Mechanical Ventilator 50 07/26/20 02:00 28 98/61 Mechanical Ventilator 50 07/26/20 01:30 93 33 50 07/26/20 01:30 91 30 103/64 (77) 100 07/26/20 01:00 91 28 96/60 (72) 100 07/26/20 01:00 28 96/60 Mechanical Ventilator 50 07/26/20 01:00 28 96/60 Mechanical Ventilator 50 07/26/20 01:00 28 96/60 Mechanical Ventilator 50 07/26/20 01:00 28 96/60 Mechanical Ventilator 50 07/26/20 00:00 50 07/26/20 00:00 91 30 97/62 (74) 100 07/26/20 00:00 91 07/26/20 00:00 30 97/62 Mechanical Ventilator 50 07/26/20 00:00 30 97/62 Mechanical Ventilator 50 07/26/20 00:00 Mechanical Ventilator Mechanical Ventilator Mechanical Ventilator 07/25/20 23:30 92 28 97/63 (74) 100 07/25/20 23:24 93 30 50 07/25/20 23:00 98 30 100/61 (74) 100 07/25/20 23:00 30 100/61 Mechanical Ventilator 50.0 07/25/20 22:30 101 30 97/60 (72) 99 07/25/20 22:00 104 31 97/59 (72) 100 07/25/20 22:00 31 97/59 Mechanical Ventilator 40 07/25/20 21:30 102 29 97/60 (72) 99 07/25/20 21:24 97 30 50 07/25/20 21:00 30 98/64 Mechanical Ventilator 50.0 07/25/20 21:00 101 30 98/64 (75) 99 07/25/20 20:45 100 28 95/58 (70) 98 07/25/20 20:45 28 95/58 Mechanical Ventilator 50 07/25/20 20:30 102 35 101/65 (77) 99 07/25/20 20:30 35 101/65 Mechanical Ventilator 50 07/25/20 20:15 103 29 104/63 (77) 100 07/25/20 20:15 29 104/63 Mechanical Ventilator 50 07/25/20 20:00 Mechanical Ventilator Mechanical Ventilator Mechanical Ventilator 07/25/20 20:00 102 33 105/65 (78) 100 07/25/20 20:00 33 105/65 Mechanical Ventilator 50 07/25/20 20:00 33 105/65 Mechanical Ventilator 50 07/25/20 19:30 100 31 94/61 (72) 100 07/25/20 19:27 100 32 50 07/25/20 19:00 104 29 102/68 (79) 100 07/25/20 19:00 30 102/68 Mechanical Ventilator 50 07/25/20 18:45 92 27 91/57 (68) 100 07/25/20 18:30 90 26 93/63 (73) 100 07/25/20 18:15 91 26 91/58 (69) 100 07/25/20 18:00 28 91/58 Mechanical Ventilator 50 07/25/20 18:00 88 29 87/55 (66) 100 07/25/20 17:45 92 28 91/59 (70) 100 07/25/20 17:30 93 28 91/57 (68) 100 07/25/20 17:15 94 30 91/62 (72) 100 07/25/20 17:00 28 92/58 Mechanical Ventilator 50 07/25/20 17:00 93 28 92/58 (69) 100 07/25/20 16:15 89 28 90/62 (71) 100 07/25/20 16:00 Mechanical Ventilator Mechanical Ventilator Mechanical Ventilator 07/25/20 16:00 91 07/25/20 16:00 28 91/56 Mechanical Ventilator 50 07/25/20 16:00 50 07/25/20 16:00 100.5 93 28 91/56 (68) 100 07/25/20 15:57 92 29 91/59 (70) 100 07/25/20 15:45 90 31 85/50 (62) 100 07/25/20 15:35 98 29 55 07/25/20 15:30 99 29 93/56 (68) 100 07/25/20 15:15 100 30 93/58 (70) 100 07/25/20 15:00 101 32 94/56 (69) 100 07/25/20 15:00 32 94/56 Mechanical Ventilator 50 07/25/20 15:00 32 94/56 Mechanical Ventilator 50 07/25/20 14:45 114 29 104/67 (79) 91 07/25/20 14:30 102 26 91/57 (68) 100 07/25/20 14:15 101 32 93/56 (68) 100 07/25/20 14:00 97 26 102/59 (73) 100 07/25/20 14:00 26 102/59 Mechanical Ventilator 55 07/25/20 14:00 26 102/59 Mechanical Ventilator 55 (1) Pneumonia due to COVID-19 virus (2) Respiratory distress Intake and Output 0 07/25/20 07/26/20 19:00 07:00 Intake Total 1166 ml 1087.5 ml Output Total 955 ml 600 ml Balance 211 ml 487.5 ml Free Water 25 ml 90 ml IV Total 1081 ml 817.5 ml Tube Feeding 60 ml 180 ml Output Urine Total 760 ml 600 ml Chest Tube Drainage Total 195 ml Current Medications Medications (Trade) Dose Ordered Sig/Zelda Route PRN Reason Start Time Stop Time Status Last Admin Dose Admin Acetaminophen (Tylenol) 650 mg Q4H PRN NG Temp >100.5 06/29/20 10:15 07/29/20 10:14 07/26/20 08:31 Acetaminophen (Tylenol) 650 mg Q6H PRN NG Mild Pain (Pain Scale 1-3) 06/29/20 10:15 07/29/20 10:14 07/22/20 11:56 Calcitonin Anton (Miacalcin) 1 sprays DAILY NASAL 07/22/20 14:00 10/20/20 13:59 07/26/20 08:37 Chlorhexidine Gluconate (Inna-Hex 2%) 1 applic DAILY@1999 TOPIC 07/20/20 20:00 10/18/20 19:59 07/25/20 20:00 Dextrose (Dextrose 50%) 25 ml Q30M PRN IV Hypoglycemia 06/05/20 10:45 09/03/20 10:44 Dextrose (Dextrose 50%) 50 ml Q30M PRN IV Hypoglycemia 06/05/20 10:45 09/03/20 10:44 Dextrose/Sodium Chloride 1,000 ml @ 50 mls/hr Q20H IV 07/25/20 11:15 08/24/20 11:14 07/26/20 08:10 Enoxaparin Sodium (Lovenox) 110 mg EVERY 12 HOURS SUBQ 07/17/20 21:00 10/15/20 20:59 07/23/20 20:19 Fentanyl Citrate 250 ml @ 1 mls/hr Q24H IV 07/25/20 05:00 07/27/20 04:59 07/26/20 08:00 Guaifenesin/ Codeine Phosphate (Robitussin with codeine) 5 ml Q6H PRN NG For Cough 07/14/20 14:15 08/13/20 14:14 07/18/20 21:44 Lansoprazole (Prevacid) 30 mg DAILY GT 07/18/20 09:00 08/09/20 08:59 07/26/20 08:31 Meropenem 1 gm/ Sodium Chloride 55 ml @ 110 mls/hr Q8H IVPB 07/22/20 12:00 07/29/20 11:59 07/26/20 12:51 Midazolam HCl 200 ml @ 0 mls/hr Q24H PRN IV sedation 07/22/20 14:06 07/29/20 14:05 07/26/20 10:00 Midodrine (Pro-Amatine) 10 mg Q8HR GT 06/30/20 14:00 09/12/20 13:59 07/26/20 05:58 Potassium Phosphate 20 mm/ Sodium Chloride 281.6667 ml @ 46.944 m... ONCE ONCE IV 07/26/20 09:00 07/26/20 14:59 07/26/20 08:35 Quetiapine Fumarate (SEROqueL) 50 mg Q12HR GT 07/16/20 13:30 08/30/20 13:29 07/26/20 08:31 Laboratory Tests 07/26/20 03:40: White Blood Count 8.8, Red Blood Count 2.60L, Hemoglobin 7.5L, Hematocrit 23.9L, Mean Corpuscular Volume 92, Mean Corpuscular Hemoglobin 28.8, Mean Corpuscular Hemoglobin Concent 31.3L, Red Cell Distribution Width 17.0H, Platelet Count 232, Mean Platelet Volume 7.2, Neutrophils (%) (Auto) , Lymphocytes (%) (Auto) , Monocytes (%) (Auto) , Eosinophils (%) (Auto) , Basophils (%) (Auto) , Sodium Level 143, Potassium Level 3.7, Chloride Level 104, Carbon Dioxide Level 33H, Anion Gap 6, Blood Urea Nitrogen 4L, Creatinine 0.4L, Estimat Glomerular Filtration Rate > 60, Glucose Level 99, Calcium Level 8.1L, Phosphorus Level 2.2L, Magnesium Level 1.8, Total Bilirubin 0.4, Aspartate Amino Transf (AST/SGOT) 28, Alanine Aminotransferase (ALT/SGPT) 18, Alkaline Phosphatase 63, C-Reactive Protein, Quantitative 12.4H, Pro-B-Type Natriuretic Peptide 322H, Total Protein 6.1L, Albumin 2.3L, Globulin 3.8, Albumin/Globulin Ratio 0.6L Height (Feet): 5 Height (Inches): 5.00 Weight (Pounds): 223 General Appearance: no apparent distress EENT: other - Intubated on ventilator Cardiovascular: tachycardia Respiratory/Chest: decreased breath sounds Abdomen: distended Rigo Tyler MD Jul 26, 2020 13:58
--- NOTE | 2020-07-26 14:10 | General Progress Note ---
Subjective ROS Limited/Unobtainable: No Allergies: Coded Allergies: No Known Allergies (Unverified , 05/28/20) Objective Last 24 Hour Vital Signs Date Time Temp Pulse Resp B/P (MAP) Pulse Ox O2 Delivery O2 Flow Rate FiO2 07/26/20 13:30 102 33 96/61 (73) 97 07/26/20 13:00 101 32 96/58 (71) 97 07/26/20 12:30 101 27 94/62 (73) 97 07/26/20 12:00 99.6 101 29 98/60 (73) 98 07/26/20 12:00 45 07/26/20 11:30 102 32 98/62 (74) 97 07/26/20 11:00 23 97/63 Mechanical Ventilator 45 07/26/20 11:00 23 97/63 Mechanical Ventilator 45 07/26/20 11:00 102 33 97/63 (74) 97 07/26/20 10:30 107 32 97/63 (74) 96 07/26/20 10:00 106 33 96/61 (73) 95 07/26/20 10:00 33 96/61 Mechanical Ventilator 45 07/26/20 10:00 30 99/65 Mechanical Ventilator 45 07/26/20 09:30 103 27 103/59 (74) 95 07/26/20 09:10 101.0 07/26/20 09:00 99 33 101/60 (74) 98 07/26/20 09:00 33 101/60 Mechanical Ventilator 45 07/26/20 09:00 33 101/60 Mechanical Ventilator 45 07/26/20 08:39 99 41 45 07/26/20 08:30 101 34 103/65 (78) 99 07/26/20 08:00 50 07/26/20 08:00 99 07/26/20 08:00 101.3 105 33 99/66 (77) 98 07/26/20 08:00 Mechanical Ventilator Mechanical Ventilator Mechanical Ventilator 07/26/20 08:00 31 99/66 Mechanical Ventilator 50 07/26/20 08:00 30 99/66 Mechanical Ventilator 50 07/26/20 07:30 97 29 100/64 (76) 99 07/26/20 07:25 96 35 50 07/26/20 07:00 28 100/64 Mechanical Ventilator 40 07/26/20 07:00 28 100/64 Mechanical Ventilator 40 07/26/20 07:00 95 28 100/64 (76) 100 07/26/20 06:30 96 30 103/63 (76) 100 07/26/20 06:30 96 30 07/26/20 06:00 25 103/69 Mechanical Ventilator 50 07/26/20 06:00 25 103/69 Mechanical Ventilator 50 07/26/20 06:00 96 25 103/69 (80) 100 07/26/20 05:00 94 30 101/65 (77) 100 07/26/20 05:00 30 101/65 Mechanical Ventilator 50 07/26/20 05:00 30 101/65 Mechanical Ventilator 50 07/26/20 04:30 93 26 96/65 (75) 100 07/26/20 04:00 Mechanical Ventilator Mechanical Ventilator Mechanical Ventilator 07/26/20 04:00 96 25 96/68 (77) 100 07/26/20 04:00 96 07/26/20 04:00 25 96/68 Mechanical Ventilator 50 07/26/20 04:00 25 96/68 Mechanical Ventilator 50 07/26/20 04:00 50 07/26/20 03:42 92 30 50 07/26/20 03:30 93 32 96/59 (71) 100 07/26/20 03:00 91 28 94/63 (73) 100 07/26/20 03:00 28 94/63 Mechanical Ventilator 50 07/26/20 03:00 28 94/63 Mechanical Ventilator 50 07/26/20 02:30 94 30 96/61 (73) 100 07/26/20 02:00 92 28 98/61 (73) 100 07/26/20 02:00 28 98/61 Mechanical Ventilator 50 07/26/20 02:00 28 98/61 Mechanical Ventilator 50 07/26/20 01:30 93 33 50 07/26/20 01:30 91 30 103/64 (77) 100 07/26/20 01:00 91 28 96/60 (72) 100 07/26/20 01:00 28 96/60 Mechanical Ventilator 50 07/26/20 01:00 28 96/60 Mechanical Ventilator 50 07/26/20 01:00 28 96/60 Mechanical Ventilator 50 07/26/20 01:00 28 96/60 Mechanical Ventilator 50 07/26/20 00:00 50 07/26/20 00:00 91 30 97/62 (74) 100 07/26/20 00:00 91 07/26/20 00:00 30 97/62 Mechanical Ventilator 50 07/26/20 00:00 30 97/62 Mechanical Ventilator 50 07/26/20 00:00 Mechanical Ventilator Mechanical Ventilator Mechanical Ventilator 07/25/20 23:30 92 28 97/63 (74) 100 07/25/20 23:24 93 30 50 07/25/20 23:00 98 30 100/61 (74) 100 07/25/20 23:00 30 100/61 Mechanical Ventilator 50.0 07/25/20 22:30 101 30 97/60 (72) 99 07/25/20 22:00 104 31 97/59 (72) 100 07/25/20 22:00 31 97/59 Mechanical Ventilator 40 07/25/20 21:30 102 29 97/60 (72) 99 07/25/20 21:24 97 30 50 07/25/20 21:00 30 98/64 Mechanical Ventilator 50.0 07/25/20 21:00 101 30 98/64 (75) 99 07/25/20 20:45 100 28 95/58 (70) 98 07/25/20 20:45 28 95/58 Mechanical Ventilator 50 07/25/20 20:30 102 35 101/65 (77) 99 07/25/20 20:30 35 101/65 Mechanical Ventilator 50 07/25/20 20:15 103 29 104/63 (77) 100 07/25/20 20:15 29 104/63 Mechanical Ventilator 50 07/25/20 20:00 Mechanical Ventilator Mechanical Ventilator Mechanical Ventilator 07/25/20 20:00 102 33 105/65 (78) 100 07/25/20 20:00 33 105/65 Mechanical Ventilator 50 07/25/20 20:00 33 105/65 Mechanical Ventilator 50 07/25/20 19:30 100 31 94/61 (72) 100 07/25/20 19:27 100 32 50 07/25/20 19:00 104 29 102/68 (79) 100 07/25/20 19:00 30 102/68 Mechanical Ventilator 50 07/25/20 18:45 92 27 91/57 (68) 100 07/25/20 18:30 90 26 93/63 (73) 100 07/25/20 18:15 91 26 91/58 (69) 100 07/25/20 18:00 28 91/58 Mechanical Ventilator 50 07/25/20 18:00 88 29 87/55 (66) 100 07/25/20 17:45 92 28 91/59 (70) 100 07/25/20 17:30 93 28 91/57 (68) 100 07/25/20 17:15 94 30 91/62 (72) 100 07/25/20 17:00 28 92/58 Mechanical Ventilator 50 07/25/20 17:00 93 28 92/58 (69) 100 07/25/20 16:15 89 28 90/62 (71) 100 07/25/20 16:00 Mechanical Ventilator Mechanical Ventilator Mechanical Ventilator 07/25/20 16:00 91 07/25/20 16:00 28 91/56 Mechanical Ventilator 50 07/25/20 16:00 50 07/25/20 16:00 100.5 93 28 91/56 (68) 100 07/25/20 15:57 92 29 91/59 (70) 100 07/25/20 15:45 90 31 85/50 (62) 100 07/25/20 15:35 98 29 55 07/25/20 15:30 99 29 93/56 (68) 100 07/25/20 15:15 100 30 93/58 (70) 100 07/25/20 15:00 101 32 94/56 (69) 100 07/25/20 15:00 32 94/56 Mechanical Ventilator 50 07/25/20 15:00 32 94/56 Mechanical Ventilator 50 07/25/20 14:45 114 29 104/67 (79) 91 07/25/20 14:30 102 26 91/57 (68) 100 07/25/20 14:15 101 32 93/56 (68) 100 Intake and Output 07/25/20 07/26/20 19:00 07:00 Intake Total 1166 ml 1087.5 ml Output Total 955 ml 600 ml Balance 211 ml 487.5 ml Free Water 25 ml 90 ml IV Total 1081 ml 817.5 ml Tube Feeding 60 ml 180 ml Output Urine Total 760 ml 600 ml Chest Tube Drainage Total 195 ml Laboratory Tests 07/26/20 03:40: White Blood Count 8.8, Red Blood Count 2.60L, Hemoglobin 7.5L, Hematocrit 23.9L, Mean Corpuscular Volume 92, Mean Corpuscular Hemoglobin 28.8, Mean Corpuscular Hemoglobin Concent 31.3L, Red Cell Distribution Width 17.0H, Platelet Count 232, Mean Platelet Volume 7.2, Neutrophils (%) (Auto) , Lymphocytes (%) (Auto) , Monocytes (%) (Auto) , Eosinophils (%) (Auto) , Basophils (%) (Auto) , Sodium Level 143, Potassium Level 3.7, Chloride Level 104, Carbon Dioxide Level 33H, Anion Gap 6, Blood Urea Nitrogen 4L, Creatinine 0.4L, Estimat Glomerular Filtration Rate > 60, Glucose Level 99, Calcium Level 8.1L, Phosphorus Level 2.2L, Magnesium Level 1.8, Total Bilirubin 0.4, Aspartate Amino Transf (AST/SGOT) 28, Alanine Aminotransferase (ALT/SGPT) 18, Alkaline Phosphatase 63, C-Reactive Protein, Quantitative 12.4H, Pro-B-Type Natriuretic Peptide 322H, Total Protein 6.1L, Albumin 2.3L, Globulin 3.8, Albumin/Globulin Ratio 0.6L Height (Feet): 5 Height (Inches): 5.00 Weight (Pounds): 223 General Appearance: lethargic EENT: normal ENT inspection Neck: supple Cardiovascular: normal rate Respiratory/Chest: decreased breath sounds Abdomen: normal bowel sounds, non tender, soft Extremities: non-tender Assessment/Plan Problem List: (1) Morbid obesity ICD Codes: E66.01 - Morbid (severe) obesity due to excess calories SNOMED: 521895828 (2) DEVENDRA (acute kidney injury) ICD Codes: N17.9 - Acute kidney failure, unspecified SNOMED: 8454275, 90481570 (3) Diabetes mellitus out of control ICD Codes: E11.65 - Type 2 diabetes mellitus with hyperglycemia SNOMED: 32785667, 842956558 (4) Pneumonia due to COVID-19 virus ICD Codes: U07.1 - COVID-19; J12.82 - Pneumonia due to coronavirus disease 2019 SNOMED: 568577869190824622 (5) Hypoxia ICD Codes: R09.02 - Hypoxemia SNOMED: 244833016 (6) Respiratory failure ICD Codes: J96.90 - Respiratory failure, unspecified, unspecified whether with hypoxia or hypercapnia SNOMED: 922155375 Status: unchanged Assessment/Plan: s/p PEG GTF add colace add miralax Ryan Strong MD Jul 26, 2020 14:10
[2020-07-26] MEDS: Docusate 100mg/10ml Liq NG SCH (17:33)
--- NOTE | 2020-07-26 18:49 | NUR ---
0710: Received report from previous RN. Pt remains trach to vent and sedated. Pt remains with R chest tube and L UA PICC. Pt has marrero and PEG tube with tube feeds infusing. VSS at this time. 929: Pt phosphorus being replaced at this time. Pt awakens and cough. Pt in NAD. FiO2 was titrated down to 45%. Pt tolerating well. 1000: MD Sybil at bedside. Made aware of chest tube output. Plans to continue R chest tube at this time. 1100: MD Amisha at bedside. No new orders at this time. 1300: Spoke with keira Agosto to increase tube feeds to goal. 1800: Tube feeds at goal. Pt tolerating well. Pt in NAD. VSS. Will continue to monitor.
--- NOTE | 2020-07-26 19:10 | NUR ---
NURSE NOTES: Received patient from Guillaume RN. Pt is sedated and obtunded SR/ST on the coke loader Patient noted to be trached with a Shiely 7. Vent settings : AC 15 TV400, FiO2 45% and Peep of 5. Current SpO2 is 100%. RR 20, patient is sedated with RASS score of -2. Peg-tube noted, CDI, okay to use it per Dr. Strong. R chest tube noted on low continuos suctioning. Plan to DC tomorrow. ROX PICC double lumen noted with Fentanyl@100mcgs/hr, Verced 5mg/hr, and D5NS @75 ml/hr, CDI. Current vitals are stable. NSR monitor. Peripheral pulses noted equal bilaterally. Pedal pulses noted equal and bilateral. Safety measures observed and no acute distress noted. Will continue to monitor.
--- NOTE | 2020-07-26 19:37 | NUR ---
MD Sybil made aware of hemoglobin trending down and blood loss. 1200: ZULLY Garcia at bedside. No new orders at this time.
--- NOTE | 2020-07-26 19:39 | NUR ---
Report given to RAKEL Hooker. All questions answered. Pt in NAD. VSS. R chest tube remians in place. Tube feeds running through PEG tube. Pt remains trach to vent. Care continues.
[2020-07-26] MEDS: Dyna-Hex 2% Top Sol 2oz TOPIC SCH (20:00)
--- NOTE | 2020-07-26 21:00 | NUR ---
NURSE NOTES: PM meds given Turned and repositioned Oral care provided.
[2020-07-26] MEDS: Miralax 17gm pkt ORAL SCH (21:11)
[2020-07-27] VITALS (32 sets, daily range): BP systolic 95–135; BP diastolic 51–89
--- NOTE | 2020-07-27 | NUR ---
NURSE NOTES: Pt remains sedated. Open her eyes spontaneously. SR/ST on the secured entrance monitor Patient noted to be trached with a Shiely 7. Vent settings : AC 15 TV400, FiO2 45% and Peep of 5. Current SpO2 is 100%. RR 20, patient is sedated with RASS score of -2. Peg-tube noted, CDI, okay to use it per Dr. Strong. R chest tube noted on low continuos suctioning. Plan to DC today. ROX PICC double lumen noted with Fentanyl@100mcgs/hr, Verced 5mg/hr, and D5NS @75 ml/hr, CDI. Current vitals are stable. NSR monitor. Peripheral pulses noted equal bilaterally. Pedal pulses noted equal and bilateral. Safety measures observed and no acute distress noted. Will continue to monitor. Addendum: 07/27/20 at 0824 by Nhung King RN Residual was 100mL plus. Feeding was stopped.
--- NOTE | 2020-07-27 03:00 | NUR ---
NURSE NOTES: Pt temp increased to 102.3. Cooling machine and blanket ordered. 2RNs and 1 [employer] put it underneath. Rectal temp is inserted. AM care provided at the same time. BM smear noted. Will continue to monitor.
[2020-07-27] MEDS: Acetaminophen 650mg/20.3ml NG PRN (03:40)
[2020-07-27] MEDS: D5NS 1,000 ML IV SCH (04:00)
[2020-07-27] MEDS: Meropenem 1 GM in NS 55 ML IVPB SCH ×3 (04:00→20:18)
[2020-07-27] MEDS: Midodrine 10mg tab GT SCH ×3 (06:00→21:43)
[2020-07-27 06:34] LABS: BASOPHILS % (AUTO) 1.2 % (0.0-2.0); EOSINOPHILS % (AUTO) 7.2 % (0.0-3.0); HEMATOCRIT 28.3 % (37.0-47.0); HEMOGLOBIN 8.5 G/DL (12.0-16.0); LYMPHOCYTES % (AUTO) 31.7 % (20.0-45.0); MEAN CORPUSCULAR VOLUME 94 FL (80-99); MONOCYTES % (AUTO) 8.5 % (1.0-10.0); NEUTROPHILS % (AUTO) 51.4 % (45.0-75.0); PLATELET COUNT 267 K/UL (150-450); RED CELL DISTRIBUTION WIDTH 17.8 % (11.6-14.8); WHITE BLOOD COUNT 10.3 K/UL (4.8-10.8)
--- NOTE | 2020-07-27 06:45 | NUR ---
RESPIRATORY NOTE: PT received on AC/VC: 15, 400ml, 45%,+5, trach Shiley 7.0XLT, secured by trach tie and trach guard. Alarms are on and audible. Vent circuit is secure and out of the way.Vent is plugged into the red outlet, ambu bag and spare trach at bedside. No s/s of acute respiratory distress noted at this time. Will continue to closely monitor.
[2020-07-27 07:08] LABS: ALANINE AMINOTRANSFERASE 18 U/L (12-78); ALBUMIN 2.4 G/DL (3.4-5.0); ALBUMIN/GLOBULIN RATIO 0.5 (1.0-2.7); ALKALINE PHOSPHATASE 64 U/L (46-116); ANION GAP 3 mmol/L (5-15); ASPARTATE AMINO TRANSFERASE 28 U/L (15-37); BILIRUBIN,TOTAL 0.6 MG/DL (0.2-1.0); BLOOD UREA NITROGEN 5 mg/dL (7-18); CALCIUM 8.3 MG/DL (8.5-10.1); CARBON DIOXIDE 35 MMOL/L (21-32); CHLORIDE 107 MMOL/L (98-107); CREATININE 0.5 MG/DL (0.55-1.30); POTASSIUM 4.5 MMOL/L (3.5-5.1); SODIUM 145 MMOL/L (136-145)
[2020-07-27] MEDS: Versed 100mg/NS 200ml 200 ML IV PRN (07:45)
[2020-07-27] MEDS: fentaNYL 2500mcg/NS 250ml 250 ML IV SCH (07:45)
--- NOTE | 2020-07-27 07:45 | NUR ---
NURSE NOTES: Fentanyl was fell off from IV spread sheet. Wasted 20mL with RAKEL Vizcarra and new bag was ordered and scanned. Verced was 0 amount. Scanned and hanged new bag.
[2020-07-27] MEDS ORDERED: Sodium Bicarbonate 8.4% 50ml Inj ONE (07:53)
[2020-07-27] MEDS ORDERED: Magnesium Sulfate 2ml Inj ONE (07:54)
[2020-07-27] MEDS ORDERED: Atropine Inj 1mg/10ml Syr ONE (07:54)
--- NOTE | 2020-07-27 08:00 | NUR ---
HAND OFF: Report given to RAKEL Bernal. Endorsed POC.
--- NOTE | 2020-07-27 08:03 | NUR ---
NURSE NOTES: Received report from Nhung Andrade RN.
[2020-07-27] MEDS: Docusate 100mg/10ml Liq NG SCH ×2 (08:50→19:00)
[2020-07-27] MEDS: Enoxaparin 120 mg inj SUBQ SCH ×2 (08:51→21:43)
--- NOTE | 2020-07-27 08:58 | General Progress Note ---
Subjective ROS Limited/Unobtainable: No Allergies: Coded Allergies: No Known Allergies (Unverified , 05/28/20) Objective Last 24 Hour Vital Signs Date Time Temp Pulse Resp B/P (MAP) Pulse Ox O2 Delivery O2 Flow Rate FiO2 07/27/20 08:00 100.0 107 42 111/65 (80) 96 07/27/20 07:45 30 101/63 Mechanical Ventilator 45 07/27/20 07:45 30 101/63 Mechanical Ventilator 45 07/27/20 07:30 105 23 101/63 (76) 96 07/27/20 07:00 100.5 104 29 97/65 (76) 96 07/27/20 07:00 29 97/65 Mechanical Ventilator 45 07/27/20 07:00 29 97/65 Mechanical Ventilator 45 07/27/20 06:45 105 30 45 07/27/20 06:30 106 28 101/51 (68) 96 07/27/20 06:30 107 30 07/27/20 06:00 29 102/54 Mechanical Ventilator 45 07/27/20 06:00 29 102/54 Mechanical Ventilator 45 07/27/20 06:00 107 29 102/54 (70) 96 07/27/20 05:11 109 30 45 07/27/20 05:00 109 27 101/56 (71) 96 96 07/27/20 05:00 37 101/56 Mechanical Ventilator 45 07/27/20 05:00 37 101/56 Mechanical Ventilator 45 07/27/20 04:10 102.3 07/27/20 04:00 45 07/27/20 04:00 114 36 102/67 (79) 96 07/27/20 04:00 Mechanical Ventilator Mechanical Ventilator Mechanical Ventilator 07/27/20 04:00 36 102/67 Mechanical Ventilator 40 07/27/20 04:00 36 102/67 Mechanical Ventilator 45 07/27/20 04:00 114 07/27/20 03:00 35 114/71 Mechanical Ventilator 45 07/27/20 03:00 35 114/71 Mechanical Ventilator 45 07/27/20 03:00 102.3 117 35 114/71 (85) 96 07/27/20 03:00 230 35 50 07/27/20 02:00 119 65 118/75 (89) 97 07/27/20 02:00 36 118/75 Mechanical Ventilator 45 07/27/20 02:00 36 118/75 Mechanical Ventilator 45 07/27/20 01:01 122 36 50 07/27/20 01:00 122 35 115/81 (92) 95 07/27/20 01:00 35 115/81 Mechanical Ventilator 45 07/27/20 01:00 36 115/81 Mechanical Ventilator 45 07/27/20 00:00 36 124/71 Mechanical Ventilator 45 07/27/20 00:00 36 122/71 Mechanical Ventilator 45 07/27/20 00:00 Mechanical Ventilator Mechanical Ventilator Mechanical Ventilator 07/27/20 00:00 124 07/27/20 00:00 45 07/27/20 00:00 124 45 122/71 (88) 94 07/26/20 23:28 125 34 50 07/26/20 23:00 124 49 122/69 (86) 94 07/26/20 23:00 36 122/69 Mechanical Ventilator 45 07/26/20 23:00 36 122/69 Mechanical Ventilator 45 07/26/20 22:00 126 54 111/55 (73) 94 07/26/20 22:00 36 111/55 Mechanical Ventilator 45 07/26/20 22:00 36 111/55 Mechanical Ventilator 45 07/26/20 21:00 145 44 120/59 (79) 71 07/26/20 21:00 36 120/59 Mechanical Ventilator 45 07/26/20 21:00 36 120/59 Mechanical Ventilator 45 07/26/20 20:58 100.9 07/26/20 20:55 102.3 07/26/20 20:39 60 07/26/20 20:26 139 48 45 07/26/20 20:00 Mechanical Ventilator Mechanical Ventilator Mechanical Ventilator 07/26/20 20:00 36 115/53 Mechanical Ventilator 45 07/26/20 20:00 36 115/53 Mechanical Ventilator 45 07/26/20 20:00 138 07/26/20 20:00 138 62 115/53 (73) 74 07/26/20 20:00 45 07/26/20 19:15 118 48 40 07/26/20 19:00 100.9 113 32 105/59 (74) 95 07/26/20 19:00 30 105/59 Mechanical Ventilator 45 07/26/20 19:00 30 105/59 45 07/26/20 18:30 102 35 93/60 (71) 97 07/26/20 18:00 31 100/57 Mechanical Ventilator 45 07/26/20 18:00 31 100/57 Mechanical Ventilator 45 07/26/20 18:00 105 34 100/57 (71) 96 07/26/20 17:00 106 35 91/54 (66) 96 07/26/20 17:00 34 91/54 Mechanical Ventilator 45 07/26/20 17:00 34 91/54 Mechanical Ventilator 45 07/26/20 17:00 100.9 07/26/20 16:30 111 44 92 07/26/20 16:00 Mechanical Ventilator Mechanical Ventilator Mechanical Ventilator 07/26/20 16:00 104 07/26/20 16:00 36 102/63 Mechanical Ventilator 45 07/26/20 16:00 36 102/63 Mechanical Ventilator 45 07/26/20 16:00 105 35 98/60 (73) 96 07/26/20 16:00 45 07/26/20 16:00 101.6 103 32 102/63 (76) 96 07/26/20 15:30 106 36 97/67 (77) 96 07/26/20 15:00 110 40 107/64 (78) 93 07/26/20 15:00 32 107/64 Mechanical Ventilator 45 07/26/20 15:00 33 105/70 Mechanical Ventilator 45 07/26/20 14:30 107 40 100/66 (77) 96 07/26/20 14:00 29 98/68 Mechanical Ventilator 45 07/26/20 14:00 33 107/64 Mechanical Ventilator 45 07/26/20 14:00 103 37 98/68 (78) 98 07/26/20 13:52 108 32 45 07/26/20 13:30 102 33 96/61 (73) 97 07/26/20 13:00 101 32 96/58 (71) 97 07/26/20 13:00 30 96/58 Mechanical Ventilator 45 07/26/20 13:00 29 96/58 Non-Rebreather 45 07/26/20 12:30 101 27 94/62 (73) 97 07/26/20 12:00 99.6 101 29 98/60 (73) 98 07/26/20 12:00 28 98/60 Mechanical Ventilator 45 07/26/20 12:00 29 98/60 Mechanical Ventilator 45 07/26/20 12:00 45 07/26/20 12:00 Mechanical Ventilator Mechanical Ventilator Mechanical Ventilator 07/26/20 12:00 100 07/26/20 11:30 102 32 98/62 (74) 97 07/26/20 11:00 23 97/63 Mechanical Ventilator 45 07/26/20 11:00 23 97/63 Mechanical Ventilator 45 07/26/20 11:00 102 33 97/63 (74) 97 07/26/20 10:30 107 32 97/63 (74) 96 07/26/20 10:00 106 33 96/61 (73) 95 07/26/20 10:00 33 96/61 Mechanical Ventilator 45 07/26/20 10:00 30 99/65 Mechanical Ventilator 45 07/26/20 09:30 103 27 103/59 (74) 95 07/26/20 09:10 101.0 07/26/20 09:00 99 33 101/60 (74) 98 07/26/20 09:00 33 101/60 Mechanical Ventilator 45 07/26/20 09:00 33 101/60 Mechanical Ventilator 45 Intake and Output 0 07/26/20 07/27/20 19:00 07:00 Intake Total 1285 ml 1140 ml Output Total 950 ml 480 ml Balance 335 ml 660 ml Free Water 85 ml 30 ml IV Total 820 ml 780 ml Tube Feeding 380 ml 330 ml Output Urine Total 670 ml 480 ml Chest Tube Drainage Total 280 ml Laboratory Tests 07/27/20 05:30: White Blood Count 10.3, Red Blood Count 3.00L, Hemoglobin 8.5L, Hematocrit 28.3L , Mean Corpuscular Volume 94, Mean Corpuscular Hemoglobin 28.4, Mean Corpuscular Hemoglobin Concent 30.1L, Red Cell Distribution Width 17.8H, Platelet Count 267, Mean Platelet Volume 7.7, Neutrophils (%) (Auto) 51.4, Lymphocytes (%) (Auto) 31.7, Monocytes (%) (Auto) 8.5, Eosinophils (%) (Auto) 7.2H, Basophils (%) (Auto) 1.2, Sodium Level 145, Potassium Level 4.5, Chloride Level 107, Carbon Dioxide Level 35H, Anion Gap 3L, Blood Urea Nitrogen 5L, Creatinine 0.5L, Estimat Glomerular Filtration Rate > 60, Glucose Level 116H, Calcium Level 8.3L, Total Bilirubin 0.6, Aspartate Amino Transf (AST/SGOT) 28, Alanine Aminotransferase (ALT/SGPT) 18, Alkaline Phosphatase 64, Total Protein 6.8, Albumin 2.4L, Globulin 4.4, Albumin/Globulin Ratio 0.5L Height (Feet): 5 Height (Inches): 5.00 Weight (Pounds): 223 General Appearance: no apparent distress EENT: normal ENT inspection Neck: supple Cardiovascular: normal rate Respiratory/Chest: decreased breath sounds Abdomen: normal bowel sounds, non tender, soft Extremities: non-tender Assessment/Plan Problem List: (1) Morbid obesity ICD Codes: E66.01 - Morbid (severe) obesity due to excess calories SNOMED: 451575324 (2) DEVENDRA (acute kidney injury) ICD Codes: N17.9 - Acute kidney failure, unspecified SNOMED: 5679514, 03975196 (3) Diabetes mellitus out of control ICD Codes: E11.65 - Type 2 diabetes mellitus with hyperglycemia SNOMED: 57511407, 107770586 (4) Pneumonia due to COVID-19 virus ICD Codes: U07.1 - COVID-19; J12.82 - Pneumonia due to coronavirus disease 2019 SNOMED: 950499919974421627 (5) Hypoxia ICD Codes: R09.02 - Hypoxemia SNOMED: 329171288 (6) Respiratory failure ICD Codes: J96.90 - Respiratory failure, unspecified, unspecified whether with hypoxia or hypercapnia SNOMED: 928058572 Status: unchanged Assessment/Plan: s/p PEG GTF colace miralax will Ryan Dubose MD Jul 27, 2020 08:58
--- NOTE | 2020-07-27 09:15 | NUR ---
NURSE NOTES: Pt. in bed, occasionally opens eyes. No s/sx of distress. Mech. vent dependent with setting AC15/VT400/Fi O2 of 45%/P5. No grimacing noted. HOB elevated at all times. On GTF running Glucerna 1.2 cont at 55cc/hr. PICC line at left upper arm in placed patent/intact. F/C in placed patent/intact draining light jordyn colored urine with little sediments noted. Bed in low position, locked. Call light within reach. Will cont. to monitor.
--- NOTE | 2020-07-27 09:22 | Hematology/Onc Progress Note ---
Assessment/Plan Assessment/Plan # Thrombocytopenia is due to infection/underlying covid19+++ --> ABX ceftriaxone -->zosyn --> on steriods likely cause of initial wbc --> per pulm --> plt 107->156-->192-->205 --> smear reviewed # Anemia due to chronic disease --> hgb goal is >7 --> transfuse prn --> ferritin is >1000 --> hold off on iron --> 10-->9.8->9-->8-->8.2-->9.4-->8.1 # Elevated ddimer due to covid19++ --> duplex legs is negative --> underlying covid rx # Hypoxia -> due to covid19 # Hypoxemia --> rx same as above # Respiratory failure --> on vent --> per pulm # Pneumonia due to COVID-19 virus --> per pulm rx -> sp remdesivir # Diabetes mellitus out of control --> hgb a1c goal <7 # Poor prognosis # Dvt ppx lovenox sq Appreciate consultation and bowen RN Subjective Allergies: Coded Allergies: No Known Allergies (Unverified , 05/28/20) Subjective Subjective 07/27: no events. Objective Objective Current Medications Medications (Trade) Dose Ordered Sig/Zelda Route PRN Reason Start Time Stop Time Status Last Admin Dose Admin Acetaminophen (Tylenol) 650 mg Q4H PRN NG Temp >100.5 07/27/20 03:45 08/26/20 03:44 07/26/20 20:25 Acetaminophen (Tylenol) 650 mg Q6H PRN NG Mild Pain (Pain Scale 1-3) 06/29/20 10:15 07/29/20 10:14 07/22/20 11:56 Calcitonin [place] (Miacalcin) 1 sprays DAILY NASAL 07/22/20 14:00 10/20/20 13:59 07/27/20 08:50 Chlorhexidine Gluconate (Inna-Hex 2%) 1 applic DAILY@1999 TOPIC 07/20/20 20:00 10/18/20 19:59 07/26/20 20:00 Dextrose (Dextrose 50%) 25 ml Q30M PRN IV Hypoglycemia 06/05/20 10:45 09/03/20 10:44 Dextrose (Dextrose 50%) 50 ml Q30M PRN IV Hypoglycemia 06/05/20 10:45 09/03/20 10:44 Dextrose/Sodium Chloride 1,000 ml @ 50 mls/hr Q20H IV 07/25/20 11:15 08/24/20 11:14 07/27/20 04:00 Docusate Sodium (Colace) 100 mg TWICE A DAY NG 07/26/20 18:00 08/25/20 17:59 07/27/20 08:50 Enoxaparin Sodium (Lovenox) 110 mg EVERY 12 HOURS SUBQ 07/17/20 21:00 10/15/20 20:59 07/27/20 08:51 Fentanyl Citrate 250 ml @ 1 mls/hr Q24H IV 07/27/20 07:45 07/29/20 07:44 07/27/20 07:45 Guaifenesin/ Codeine Phosphate (Robitussin with codeine) 5 ml Q6H PRN NG For Cough 07/14/20 14:15 08/13/20 14:14 07/18/20 21:44 Lansoprazole (Prevacid) 30 mg DAILY GT 07/18/20 09:00 08/09/20 08:59 07/27/20 08:49 Meropenem 1 gm/ Sodium Chloride 55 ml @ 110 mls/hr Q8H IVPB 07/22/20 12:00 07/29/20 11:59 07/27/20 04:00 Midazolam HCl 200 ml @ 0 mls/hr Q24H PRN IV sedation 07/22/20 14:06 07/29/20 14:05 07/27/20 07:45 Midodrine (Pro-Amatine) 10 mg Q8HR GT 06/30/20 14:00 09/12/20 13:59 07/27/20 06:00 Polyethylene Glycol (Miralax) 17 gm BEDTIME ORAL 07/26/20 21:00 08/25/20 20:59 07/26/20 21:11 Quetiapine Fumarate (SEROqueL) 50 mg Q12HR GT 07/16/20 13:30 08/30/20 13:29 07/27/20 08:49 Last 24 Hour Vital Signs Date Time Temp Pulse Resp B/P (MAP) Pulse Ox O2 Delivery O2 Flow Rate FiO2 07/27/20 09:05 102 25 45 07/27/20 08:00 100.0 107 42 111/65 (80) 96 07/27/20 07:45 30 101/63 Mechanical Ventilator 45 07/27/20 07:45 30 101/63 Mechanical Ventilator 45 07/27/20 07:30 105 23 101/63 (76) 96 07/27/20 07:00 100.5 104 29 97/65 (76) 96 07/27/20 07:00 29 97/65 Mechanical Ventilator 45 07/27/20 07:00 29 97/65 Mechanical Ventilator 45 07/27/20 06:45 105 30 45 07/27/20 06:30 106 28 101/51 (68) 96 07/27/20 06:30 107 30 07/27/20 06:00 29 102/54 Mechanical Ventilator 45 07/27/20 06:00 29 102/54 Mechanical Ventilator 45 07/27/20 06:00 107 29 102/54 (70) 96 07/27/20 05:11 109 30 45 07/27/20 05:00 109 27 101/56 (71) 96 96 07/27/20 05:00 37 101/56 Mechanical Ventilator 45 07/27/20 05:00 37 101/56 Mechanical Ventilator 45 07/27/20 04:10 102.3 07/27/20 04:00 45 07/27/20 04:00 114 36 102/67 (79) 96 07/27/20 04:00 Mechanical Ventilator Mechanical Ventilator Mechanical Ventilator 07/27/20 04:00 36 102/67 Mechanical Ventilator 40 07/27/20 04:00 36 102/67 Mechanical Ventilator 45 07/27/20 04:00 114 07/27/20 03:00 35 114/71 Mechanical Ventilator 45 07/27/20 03:00 35 114/71 Mechanical Ventilator 45 07/27/20 03:00 102.3 117 35 114/71 (85) 96 07/27/20 03:00 230 35 50 07/27/20 02:00 119 65 118/75 (89) 97 07/27/20 02:00 36 118/75 Mechanical Ventilator 45 07/27/20 02:00 36 118/75 Mechanical Ventilator 45 07/27/20 01:01 122 36 50 07/27/20 01:00 122 35 115/81 (92) 95 07/27/20 01:00 35 115/81 Mechanical Ventilator 45 07/27/20 01:00 36 115/81 Mechanical Ventilator 45 07/27/20 00:00 36 124/71 Mechanical Ventilator 45 07/27/20 00:00 36 122/71 Mechanical Ventilator 45 07/27/20 00:00 Mechanical Ventilator Mechanical Ventilator Mechanical Ventilator 07/27/20 00:00 124 07/27/20 00:00 45 07/27/20 00:00 124 45 122/71 (88) 94 07/26/20 23:28 125 34 50 07/26/20 23:00 124 49 122/69 (86) 94 07/26/20 23:00 36 122/69 Mechanical Ventilator 45 07/26/20 23:00 36 122/69 Mechanical Ventilator 45 07/26/20 22:00 126 54 111/55 (73) 94 07/26/20 22:00 36 111/55 Mechanical Ventilator 45 07/26/20 22:00 36 111/55 Mechanical Ventilator 45 07/26/20 21:00 145 44 120/59 (79) 71 07/26/20 21:00 36 120/59 Mechanical Ventilator 45 07/26/20 21:00 36 120/59 Mechanical Ventilator 45 07/26/20 20:58 100.9 07/26/20 20:55 102.3 07/26/20 20:39 60 07/26/20 20:26 139 48 45 07/26/20 20:00 Mechanical Ventilator Mechanical Ventilator Mechanical Ventilator 07/26/20 20:00 36 115/53 Mechanical Ventilator 45 07/26/20 20:00 36 115/53 Mechanical Ventilator 45 07/26/20 20:00 138 07/26/20 20:00 138 62 115/53 (73) 74 07/26/20 20:00 45 07/26/20 19:15 118 48 40 07/26/20 19:00 100.9 113 32 105/59 (74) 95 07/26/20 19:00 30 105/59 Mechanical Ventilator 45 07/26/20 19:00 30 105/59 45 07/26/20 18:30 102 35 93/60 (71) 97 07/26/20 18:00 31 100/57 Mechanical Ventilator 45 07/26/20 18:00 31 100/57 Mechanical Ventilator 45 07/26/20 18:00 105 34 100/57 (71) 96 07/26/20 17:00 106 35 91/54 (66) 96 07/26/20 17:00 34 91/54 Mechanical Ventilator 45 07/26/20 17:00 34 91/54 Mechanical Ventilator 45 07/26/20 17:00 100.9 07/26/20 16:30 111 44 92 07/26/20 16:00 Mechanical Ventilator Mechanical Ventilator Mechanical Ventilator 07/26/20 16:00 104 07/26/20 16:00 36 102/63 Mechanical Ventilator 45 07/26/20 16:00 36 102/63 Mechanical Ventilator 45 07/26/20 16:00 105 35 98/60 (73) 96 07/26/20 16:00 45 07/26/20 16:00 101.6 103 32 102/63 (76) 96 07/26/20 15:30 106 36 97/67 (77) 96 07/26/20 15:00 110 40 107/64 (78) 93 07/26/20 15:00 32 107/64 Mechanical Ventilator 45 07/26/20 15:00 33 105/70 Mechanical Ventilator 45 07/26/20 14:30 107 40 100/66 (77) 96 07/26/20 14:00 29 98/68 Mechanical Ventilator 45 07/26/20 14:00 33 107/64 Mechanical Ventilator 45 07/26/20 14:00 103 37 98/68 (78) 98 07/26/20 13:52 108 32 45 07/26/20 13:30 102 33 96/61 (73) 97 07/26/20 13:00 101 32 96/58 (71) 97 07/26/20 13:00 30 96/58 Mechanical Ventilator 45 07/26/20 13:00 29 96/58 Non-Rebreather 45 07/26/20 12:30 101 27 94/62 (73) 97 07/26/20 12:00 99.6 101 29 98/60 (73) 98 07/26/20 12:00 28 98/60 Mechanical Ventilator 45 07/26/20 12:00 29 98/60 Mechanical Ventilator 45 07/26/20 12:00 45 07/26/20 12:00 Mechanical Ventilator Mechanical Ventilator Mechanical Ventilator 07/26/20 12:00 100 07/26/20 11:30 102 32 98/62 (74) 97 07/26/20 11:00 23 97/63 Mechanical Ventilator 45 07/26/20 11:00 23 97/63 Mechanical Ventilator 45 07/26/20 11:00 102 33 97/63 (74) 97 07/26/20 10:30 107 32 97/63 (74) 96 07/26/20 10:00 106 33 96/61 (73) 95 07/26/20 10:00 33 96/61 Mechanical Ventilator 45 07/26/20 10:00 30 99/65 Mechanical Ventilator 45 07/26/20 09:30 103 27 103/59 (74) 95 07/26/20 09:10 101.0 07/26/20 09:00 99 33 101/60 (74) 98 07/26/20 09:00 33 101/60 Mechanical Ventilator 45 07/26/20 09:00 33 101/60 Mechanical Ventilator 45 07/26/20 08:39 99 41 45 07/26/20 08:30 101 34 103/65 (78) 99 07/26/20 08:00 50 07/26/20 08:00 99 07/26/20 08:00 101.3 105 33 99/66 (77) 98 07/26/20 08:00 Mechanical Ventilator Mechanical Ventilator Mechanical Ventilator 07/26/20 08:00 31 99/66 Mechanical Ventilator 50 07/26/20 08:00 30 99/66 Mechanical Ventilator 50 07/26/20 07:30 97 29 100/64 (76) 99 07/26/20 07:25 96 35 50 07/26/20 07:00 28 100/64 Mechanical Ventilator 40 07/26/20 07:00 28 100/64 Mechanical Ventilator 40 07/26/20 07:00 95 28 100/64 (76) 100 07/26/20 06:30 96 30 103/63 (76) 100 07/26/20 06:30 96 30 07/26/20 06:00 25 103/69 Mechanical Ventilator 50 07/26/20 06:00 25 103/69 Mechanical Ventilator 50 07/26/20 06:00 96 25 103/69 (80) 100 07/26/20 05:00 94 30 101/65 (77) 100 07/26/20 05:00 30 101/65 Mechanical Ventilator 50 07/26/20 05:00 30 101/65 Mechanical Ventilator 50 07/26/20 04:30 93 26 96/65 (75) 100 3/5/21 04:00 Mechanical Ventilator Mechanical Ventilator Mechanical Ventilator 07/26/20 04:00 96 25 96/68 (77) 100 07/26/20 04:00 96 07/26/20 04:00 25 96/68 Mechanical Ventilator 50 07/26/20 04:00 25 96/68 Mechanical Ventilator 50 07/26/20 04:00 50 07/26/20 03:42 92 30 50 07/26/20 03:30 93 32 96/59 (71) 100 07/26/20 03:00 91 28 94/63 (73) 100 07/26/20 03:00 28 94/63 Mechanical Ventilator 50 07/26/20 03:00 28 94/63 Mechanical Ventilator 50 07/26/20 02:30 94 30 96/61 (73) 100 07/26/20 02:00 92 28 98/61 (73) 100 07/26/20 02:00 28 98/61 Mechanical Ventilator 50 07/26/20 02:00 28 98/61 Mechanical Ventilator 50 07/26/20 01:30 93 33 50 07/26/20 01:30 91 30 103/64 (77) 100 07/26/20 01:00 91 28 96/60 (72) 100 07/26/20 01:00 28 96/60 Mechanical Ventilator 50 07/26/20 01:00 28 96/60 Mechanical Ventilator 50 07/26/20 01:00 28 96/60 Mechanical Ventilator 50 07/26/20 01:00 28 96/60 Mechanical Ventilator 50 07/26/20 00:00 50 07/26/20 00:00 91 30 97/62 (74) 100 07/26/20 00:00 91 07/26/20 00:00 30 97/62 Mechanical Ventilator 50 07/26/20 00:00 30 97/62 Mechanical Ventilator 50 07/26/20 00:00 Mechanical Ventilator Mechanical Ventilator Mechanical Ventilator 07/25/20 23:30 92 28 97/63 (74) 100 07/25/20 23:24 93 30 50 07/25/20 23:00 98 30 100/61 (74) 100 07/25/20 23:00 30 100/61 Mechanical Ventilator 50.0 07/25/20 22:30 101 30 97/60 (72) 99 07/25/20 22:00 104 31 97/59 (72) 100 07/25/20 22:00 31 97/59 Mechanical Ventilator 40 07/25/20 21:30 102 29 97/60 (72) 99 07/25/20 21:24 97 30 50 07/25/20 21:00 30 98/64 Mechanical Ventilator 50.0 07/25/20 21:00 101 30 98/64 (75) 99 07/25/20 20:45 100 28 95/58 (70) 98 07/25/20 20:45 28 95/58 Mechanical Ventilator 50 07/25/20 20:30 102 35 101/65 (77) 99 07/25/20 20:30 35 101/65 Mechanical Ventilator 50 07/25/20 20:15 103 29 104/63 (77) 100 07/25/20 20:15 29 104/63 Mechanical Ventilator 50 07/25/20 20:00 Mechanical Ventilator Mechanical Ventilator Mechanical Ventilator 07/25/20 20:00 102 33 105/65 (78) 100 07/25/20 20:00 33 105/65 Mechanical Ventilator 50 07/25/20 20:00 33 105/65 Mechanical Ventilator 50 07/25/20 19:30 100 31 94/61 (72) 100 07/25/20 19:27 100 32 50 07/25/20 19:00 104 29 102/68 (79) 100 07/25/20 19:00 30 102/68 Mechanical Ventilator 50 07/25/20 18:45 92 27 91/57 (68) 100 07/25/20 18:30 90 26 93/63 (73) 100 07/25/20 18:15 91 26 91/58 (69) 100 07/25/20 18:00 28 91/58 Mechanical Ventilator 50 07/25/20 18:00 88 29 87/55 (66) 100 07/25/20 17:45 92 28 91/59 (70) 100 07/25/20 17:30 93 28 91/57 (68) 100 07/25/20 17:15 94 30 91/62 (72) 100 07/25/20 17:00 28 92/58 Mechanical Ventilator 50 07/25/20 17:00 93 28 92/58 (69) 100 07/25/20 16:15 89 28 90/62 (71) 100 07/25/20 16:00 Mechanical Ventilator Mechanical Ventilator Mechanical Ventilator 07/25/20 16:00 91 07/25/20 16:00 28 91/56 Mechanical Ventilator 50 07/25/20 16:00 50 07/25/20 16:00 100.5 93 28 91/56 (68) 100 07/25/20 15:57 92 29 91/59 (70) 100 07/25/20 15:45 90 31 85/50 (62) 100 07/25/20 15:35 98 29 55 07/25/20 15:30 99 29 93/56 (68) 100 07/25/20 15:15 100 30 93/58 (70) 100 07/25/20 15:00 101 32 94/56 (69) 100 07/25/20 15:00 32 94/56 Mechanical Ventilator 50 07/25/20 15:00 32 94/56 Mechanical Ventilator 50 07/25/20 14:45 114 29 104/67 (79) 91 07/25/20 14:30 102 26 91/57 (68) 100 07/25/20 14:15 101 32 93/56 (68) 100 07/25/20 14:00 97 26 102/59 (73) 100 07/25/20 14:00 26 102/59 Mechanical Ventilator 55 07/25/20 14:00 26 102/59 Mechanical Ventilator 55 07/25/20 13:00 27 91/57 Mechanical Ventilator 55 07/25/20 13:00 27 91/57 Mechanical Ventilator 55 07/25/20 13:00 100 32 91/57 (68) 100 07/25/20 12:30 94 27 98/59 (72) 100 07/25/20 12:15 98 34 93/63 (73) 100 07/25/20 12:00 100.0 98 31 95/60 (72) 100 07/25/20 12:00 Mechanical Ventilator Mechanical Ventilator Mechanical Ventilator 07/25/20 12:00 100 07/25/20 12:00 55 07/25/20 12:00 27 95/60 Mechanical Ventilator 55 07/25/20 12:00 26 95/60 Mechanical Ventilator 55 07/25/20 11:45 96 29 92/54 (67) 100 07/25/20 11:35 99 32 55 07/25/20 11:30 98 33 92/56 (68) 100 07/25/20 11:15 97 23 88/54 (65) 100 07/25/20 11:00 97 21 89/54 (66) 100 07/25/20 11:00 29 100/58 Mechanical Ventilator 55 07/25/20 11:00 29 100/58 Mechanical Ventilator 55 07/25/20 10:45 100 25 100/58 (72) 100 07/25/20 10:30 100 27 102/62 (75) 100 07/25/20 10:15 96 33 99/60 (73) 100 07/25/20 10:00 29 93/54 Mechanical Ventilator 55 07/25/20 10:00 26 99/60 Mechanical Ventilator 55 07/25/20 10:00 96 23 93/60 (71) 100 Intake and Output 07/26/20 07/27/20 19:00 07:00 Intake Total 1285 ml 1140 ml Output Total 950 ml 480 ml Balance 335 ml 660 ml Free Water 85 ml 30 ml IV Total 820 ml 780 ml Tube Feeding 380 ml 330 ml Output Urine Total 670 ml 480 ml Chest Tube Drainage Total 280 ml Labs Test 07/25/20 04:06 07/26/20 03:40 07/27/20 05:30 White Blood Count 11.1 K/UL (4.8-10.8) 8.8 K/UL (4.8-10.8) 10.3 K/UL (4.8-10.8) Red Blood Count 2.80 M/UL (4.20-5.40) 2.60 M/UL (4.20-5.40) 3.00 M/UL (4.20-5.40) Hemoglobin 7.9 G/DL (12.0-16.0) 7.5 G/DL (12.0-16.0) 8.5 G/DL (12.0-16.0) Hematocrit 25.7 % (37.0-47.0) 23.9 % (37.0-47.0) 28.3 % (37.0-47.0) Mean Corpuscular Volume 92 FL (80-99) 92 FL (80-99) 94 FL (80-99) Mean Corpuscular Hemoglobin 28.4 PG (27.0-31.0) 28.8 PG (27.0-31.0) 28.4 PG (27.0-31.0) Mean Corpuscular Hemoglobin Concent 30.9 G/DL (32.0-36.0) 31.3 G/DL (32.0-36.0) 30.1 G/DL (32.0-36.0) Red Cell Distribution Width 16.9 % (11.6-14.8) 17.0 % (11.6-14.8) 17.8 % (11.6-14.8) Platelet Count 258 K/UL (150-450) 232 K/UL (150-450) 267 K/UL (150-450) Mean Platelet Volume 7.4 FL (6.5-10.1) 7.2 FL (6.5-10.1) 7.7 FL (6.5-10.1) Neutrophils (%) (Auto) % (45.0-75.0) % (45.0-75.0) 51.4 % (45.0-75.0) Lymphocytes (%) (Auto) % (20.0-45.0) % (20.0-45.0) 31.7 % (20.0-45.0) Monocytes (%) (Auto) % (1.0-10.0) % (1.0-10.0) 8.5 % (1.0-10.0) Eosinophils (%) (Auto) % (0.0-3.0) % (0.0-3.0) 7.2 % (0.0-3.0) Basophils (%) (Auto) % (0.0-2.0) % (0.0-2.0) 1.2 % (0.0-2.0) Differential Total Cells Counted 100 Neutrophils % (Manual) 57 % (45-75) Lymphocytes % (Manual) 26 % (20-45) Monocytes % (Manual) 9 % (1-10) Eosinophils % (Manual) 8 % (0-3) Basophils % (Manual) 0 % (0-2) Band Neutrophils 0 % (0-8) Platelet Estimate Adequate Platelet Morphology Normal Polychromasia 1+ Hypochromasia 1+ Anisocytosis 1+ Stomatocytes Occasional Sodium Level 138 MMOL/L (136-145) 143 MMOL/L (136-145) 145 MMOL/L (136-145) Potassium Level 3.8 MMOL/L (3.5-5.1) 3.7 MMOL/L (3.5-5.1) 4.5 MMOL/L (3.5-5.1) Chloride Level 102 MMOL/L (98-107) 104 MMOL/L (98-107) 107 MMOL/L (98-107) Carbon Dioxide Level 34 MMOL/L (21-32) 33 MMOL/L (21-32) 35 MMOL/L (21-32) Anion Gap 3 mmol/L (5-15) 6 mmol/L (5-15) 3 mmol/L (5-15) Blood Urea Nitrogen 10 mg/dL (7-18) 4 mg/dL (7-18) 5 mg/dL (7-18) Creatinine 0.5 MG/DL (0.55-1.30) 0.4 MG/DL (0.55-1.30) 0.5 MG/DL (0.55-1.30) Estimat Glomerular Filtration Rate > 60 mL/min (>60) > 60 mL/min (>60) > 60 mL/min (>60) Glucose Level 106 MG/DL (74-106) 99 MG/DL (74-106) 116 MG/DL (74-106) Calcium Level 8.6 MG/DL (8.5-10.1) 8.1 MG/DL (8.5-10.1) 8.3 MG/DL (8.5-10.1) Total Bilirubin 0.4 MG/DL (0.2-1.0) 0.4 MG/DL (0.2-1.0) 0.6 MG/DL (0.2-1.0) Aspartate Amino Transf (AST/SGOT) 27 U/L (15-37) 28 U/L (15-37) 28 U/L (15-37) Alanine Aminotransferase (ALT/SGPT) 22 U/L (12-78) 18 U/L (12-78) 18 U/L (12-78) Alkaline Phosphatase 63 U/L (46-116) 63 U/L (46-116) 64 U/L (46-116) Total Protein 6.2 G/DL (6.4-8.2) 6.1 G/DL (6.4-8.2) 6.8 G/DL (6.4-8.2) Albumin 2.2 G/DL (3.4-5.0) 2.3 G/DL (3.4-5.0) 2.4 G/DL (3.4-5.0) Globulin 4.0 g/dL 3.8 g/dL 4.4 g/dL Albumin/Globulin Ratio 0.6 (1.0-2.7) 0.6 (1.0-2.7) 0.5 (1.0-2.7) Phosphorus Level 2.2 MG/DL (2.5-4.9) Magnesium Level 1.8 MG/DL (1.8-2.4) C-Reactive Protein, Quantitative 12.4 mg/dL (0.00-0.90) Pro-B-Type Natriuretic Peptide 322 pg/mL (0-125) Height (Feet): 5 Height (Inches): 5.00 Weight (Pounds): 223 Objective Objective GeNL: nv Pulm: vent++ CV: rrr Abd: soft, nt, nd Ext: no cce Lanny Valle NP Jul 27, 2020 09:22
--- NOTE | 2020-07-27 09:42 | General Progress Note ---
Subjective Constitutional: Reports: weakness Allergies: Coded Allergies: No Known Allergies (Unverified , 05/28/20) All Systems: reviewed and negative except above Subjective trach vent in icu Objective Last 24 Hour Vital Signs Date Time Temp Pulse Resp B/P (MAP) Pulse Ox O2 Delivery O2 Flow Rate FiO2 07/27/20 09:05 102 25 45 07/27/20 09:00 105 23 101/63 (76) 96 07/27/20 08:00 106 07/27/20 08:00 100.0 107 42 111/65 (80) 96 07/27/20 07:45 30 101/63 Mechanical Ventilator 45 07/27/20 07:45 30 101/63 Mechanical Ventilator 45 07/27/20 07:30 105 23 101/63 (76) 96 07/27/20 07:00 100.5 104 29 97/65 (76) 96 07/27/20 07:00 29 97/65 Mechanical Ventilator 45 07/27/20 07:00 29 97/65 Mechanical Ventilator 45 07/27/20 06:45 105 30 45 07/27/20 06:30 106 28 101/51 (68) 96 07/27/20 06:30 107 30 07/27/20 06:00 29 102/54 Mechanical Ventilator 45 07/27/20 06:00 29 102/54 Mechanical Ventilator 45 07/27/20 06:00 107 29 102/54 (70) 96 07/27/20 05:11 109 30 45 07/27/20 05:00 109 27 101/56 (71) 96 96 07/27/20 05:00 37 101/56 Mechanical Ventilator 45 07/27/20 05:00 37 101/56 Mechanical Ventilator 45 07/27/20 04:10 102.3 07/27/20 04:00 45 07/27/20 04:00 114 36 102/67 (79) 96 07/27/20 04:00 Mechanical Ventilator Mechanical Ventilator Mechanical Ventilator 07/27/20 04:00 36 102/67 Mechanical Ventilator 40 07/27/20 04:00 36 102/67 Mechanical Ventilator 45 07/27/20 04:00 114 07/27/20 03:00 35 114/71 Mechanical Ventilator 45 07/27/20 03:00 35 114/71 Mechanical Ventilator 45 07/27/20 03:00 102.3 117 35 114/71 (85) 96 07/27/20 03:00 230 35 50 07/27/20 02:00 119 65 118/75 (89) 97 07/27/20 02:00 36 118/75 Mechanical Ventilator 45 07/27/20 02:00 36 118/75 Mechanical Ventilator 45 07/27/20 01:01 122 36 50 07/27/20 01:00 122 35 115/81 (92) 95 07/27/20 01:00 35 115/81 Mechanical Ventilator 45 07/27/20 01:00 36 115/81 Mechanical Ventilator 45 07/27/20 00:00 36 124/71 Mechanical Ventilator 45 07/27/20 00:00 36 122/71 Mechanical Ventilator 45 07/27/20 00:00 Mechanical Ventilator Mechanical Ventilator Mechanical Ventilator 07/27/20 00:00 124 07/27/20 00:00 45 07/27/20 00:00 124 45 122/71 (88) 94 07/26/20 23:28 125 34 50 07/26/20 23:00 124 49 122/69 (86) 94 07/26/20 23:00 36 122/69 Mechanical Ventilator 45 07/26/20 23:00 36 122/69 Mechanical Ventilator 45 07/26/20 22:00 126 54 111/55 (73) 94 07/26/20 22:00 36 111/55 Mechanical Ventilator 45 07/26/20 22:00 36 111/55 Mechanical Ventilator 45 07/26/20 21:00 145 44 120/59 (79) 71 07/26/20 21:00 36 120/59 Mechanical Ventilator 45 07/26/20 21:00 36 120/59 Mechanical Ventilator 45 07/26/20 20:58 100.9 07/26/20 20:55 102.3 07/26/20 20:39 60 07/26/20 20:26 139 48 45 07/26/20 20:00 Mechanical Ventilator Mechanical Ventilator Mechanical Ventilator 07/26/20 20:00 36 115/53 Mechanical Ventilator 45 07/26/20 20:00 36 115/53 Mechanical Ventilator 45 07/26/20 20:00 138 07/26/20 20:00 138 62 115/53 (73) 74 07/26/20 20:00 45 07/26/20 19:15 118 48 40 07/26/20 19:00 100.9 113 32 105/59 (74) 95 07/26/20 19:00 30 105/59 Mechanical Ventilator 45 07/26/20 19:00 30 105/59 45 07/26/20 18:30 102 35 93/60 (71) 97 07/26/20 18:00 31 100/57 Mechanical Ventilator 45 07/26/20 18:00 31 100/57 Mechanical Ventilator 45 07/26/20 18:00 105 34 100/57 (71) 96 07/26/20 17:00 106 35 91/54 (66) 96 07/26/20 17:00 34 91/54 Mechanical Ventilator 45 07/26/20 17:00 34 91/54 Mechanical Ventilator 45 07/26/20 17:00 100.9 07/26/20 16:30 111 44 92 07/26/20 16:00 Mechanical Ventilator Mechanical Ventilator Mechanical Ventilator 07/26/20 16:00 104 07/26/20 16:00 36 102/63 Mechanical Ventilator 45 07/26/20 16:00 36 102/63 Mechanical Ventilator 45 07/26/20 16:00 105 35 98/60 (73) 96 07/26/20 16:00 45 07/26/20 16:00 101.6 103 32 102/63 (76) 96 07/26/20 15:30 106 36 97/67 (77) 96 07/26/20 15:00 110 40 107/64 (78) 93 07/26/20 15:00 32 107/64 Mechanical Ventilator 45 07/26/20 15:00 33 105/70 Mechanical Ventilator 45 07/26/20 14:30 107 40 100/66 (77) 96 07/26/20 14:00 29 98/68 Mechanical Ventilator 45 07/26/20 14:00 33 107/64 Mechanical Ventilator 45 07/26/20 14:00 103 37 98/68 (78) 98 07/26/20 13:52 108 32 45 07/26/20 13:30 102 33 96/61 (73) 97 07/26/20 13:00 101 32 96/58 (71) 97 07/26/20 13:00 30 96/58 Mechanical Ventilator 45 07/26/20 13:00 29 96/58 Non-Rebreather 45 07/26/20 12:30 101 27 94/62 (73) 97 07/26/20 12:00 99.6 101 29 98/60 (73) 98 07/26/20 12:00 28 98/60 Mechanical Ventilator 45 07/26/20 12:00 29 98/60 Mechanical Ventilator 45 07/26/20 12:00 45 07/26/20 12:00 Mechanical Ventilator Mechanical Ventilator Mechanical Ventilator 07/26/20 12:00 100 07/26/20 11:30 102 32 98/62 (74) 97 07/26/20 11:00 23 97/63 Mechanical Ventilator 45 07/26/20 11:00 23 97/63 Mechanical Ventilator 45 07/26/20 11:00 102 33 97/63 (74) 97 07/26/20 10:30 107 32 97/63 (74) 96 07/26/20 10:00 106 33 96/61 (73) 95 07/26/20 10:00 33 96/61 Mechanical Ventilator 45 07/26/20 10:00 30 99/65 Mechanical Ventilator 45 Intake and Output 07/26/20 07/27/20 19:00 07:00 Intake Total 1285 ml 1140 ml Output Total 950 ml 480 ml Balance 335 ml 660 ml Free Water 85 ml 30 ml IV Total 820 ml 780 ml Tube Feeding 380 ml 330 ml Output Urine Total 670 ml 480 ml Chest Tube Drainage Total 280 ml Laboratory Tests 07/27/20 05:30: White Blood Count 10.3, Red Blood Count 3.00L, Hemoglobin 8.5L, Hematocrit 28.3L , Mean Corpuscular Volume 94, Mean Corpuscular Hemoglobin 28.4, Mean Corpuscular Hemoglobin Concent 30.1L, Red Cell Distribution Width 17.8H, Platelet Count 267, Mean Platelet Volume 7.7, Neutrophils (%) (Auto) 51.4, Lymphocytes (%) (Auto) 31.7, Monocytes (%) (Auto) 8.5, Eosinophils (%) (Auto) 7.2H, Basophils (%) (Auto) 1.2, Sodium Level 145, Potassium Level 4.5, Chloride Level 107, Carbon Dioxide Level 35H, Anion Gap 3L, Blood Urea Nitrogen 5L, Creatinine 0.5L, Estimat Glomerular Filtration Rate > 60, Glucose Level 116H, Calcium Level 8.3L, Total Bilirubin 0.6, Aspartate Amino Transf (AST/SGOT) 28, Alanine Aminotransferase (ALT/SGPT) 18, Alkaline Phosphatase 64, Total Protein 6.8, Albumin 2.4L, Globulin 4.4, Albumin/Globulin Ratio 0.5L Height (Feet): 5 Height (Inches): 5.00 Weight (Pounds): 223 General Appearance: lethargic EENT: normal ENT inspection Neck: normal alignment Cardiovascular: normal peripheral pulses, normal rate, regular rhythm Respiratory/Chest: chest wall non-tender, lungs clear, normal breath sounds Abdomen: normal bowel sounds, non tender, soft Extremities: normal inspection Edema: 1+ Arm (L), 1+ Arm (R), 1+ Leg (L), 1+ Leg (R), 1+ Pedal (L), 1+ Pedal (R), 1+ Generalized Edema: trace edema Neurologic: motor weakness Skin: normal pigmentation, warm/dry Assessment/Plan Problem List: (1) Hypoxia ICD Codes: R09.02 - Hypoxemia SNOMED: 610052212 (2) Respiratory failure ICD Codes: J96.90 - Respiratory failure, unspecified, unspecified whether with hypoxia or hypercapnia SNOMED: 102841702 (3) Respiratory distress ICD Codes: R06.03 - Acute respiratory distress; J12.82 - Pneumonia due to coronavirus disease 2019 SNOMED: 185719489 (4) Pneumonia due to COVID-19 virus ICD Codes: U07.1 - COVID-19; J12.82 - Pneumonia due to coronavirus disease 2019 SNOMED: [id number] Status: unchanged Assessment/Plan: vent abx id pulm f/u cbc bmp am Tank Del Cid DO Jul 27, 2020 09:42
[2020-07-27] MEDS ORDERED: Tubing IV Secondary IV ONE (09:51)
[2020-07-27] MEDS ORDERED: D5 1/2NS 1000ml IV ONE (09:51)
[2020-07-27] MEDS ORDERED: NS 275ml ONE ×2 (09:51)
[2020-07-27] MEDS ORDERED: Sterile Water Irrig 1000ml IRRIG ONE (09:51)
--- NOTE | 2020-07-27 10:05 | NUR ---
NURSE NOTES: Chest tube in placed at right upper side patent/intact. No bleeding on the site.
--- NOTE | 2020-07-27 10:09 | Surgery Progress Note ---
Surgery Progress Note Subjective Procedure Performed right tube chest tube insertion Additional Comments cxr improving output decreasing plan removal chest tube soon cont weaning vent Objective Last 24 Hour Vital Signs Date Time Temp Pulse Resp B/P (MAP) Pulse Ox O2 Delivery O2 Flow Rate FiO2 07/27/20 09:05 102 25 45 07/27/20 09:00 105 23 101/63 (76) 96 07/27/20 08:00 106 07/27/20 08:00 100.0 107 42 111/65 (80) 96 07/27/20 07:45 30 101/63 Mechanical Ventilator 45 07/27/20 07:45 30 101/63 Mechanical Ventilator 45 07/27/20 07:30 105 23 101/63 (76) 96 07/27/20 07:00 100.5 104 29 97/65 (76) 96 07/27/20 07:00 29 97/65 Mechanical Ventilator 45 07/27/20 07:00 29 97/65 Mechanical Ventilator 45 07/27/20 06:45 105 30 45 07/27/20 06:30 106 28 101/51 (68) 96 07/27/20 06:30 107 30 07/27/20 06:00 29 102/54 Mechanical Ventilator 45 07/27/20 06:00 29 102/54 Mechanical Ventilator 45 07/27/20 06:00 107 29 102/54 (70) 96 07/27/20 05:11 109 30 45 07/27/20 05:00 109 27 101/56 (71) 96 96 07/27/20 05:00 37 101/56 Mechanical Ventilator 45 07/27/20 05:00 37 101/56 Mechanical Ventilator 45 07/27/20 04:10 102.3 07/27/20 04:00 45 07/27/20 04:00 114 36 102/67 (79) 96 07/27/20 04:00 Mechanical Ventilator Mechanical Ventilator Mechanical Ventilator 07/27/20 04:00 36 102/67 Mechanical Ventilator 40 07/27/20 04:00 36 102/67 Mechanical Ventilator 45 07/27/20 04:00 114 07/27/20 03:00 35 114/71 Mechanical Ventilator 45 07/27/20 03:00 35 114/71 Mechanical Ventilator 45 07/27/20 03:00 102.3 117 35 114/71 (85) 96 07/27/20 03:00 230 35 50 07/27/20 02:00 119 65 118/75 (89) 97 07/27/20 02:00 36 118/75 Mechanical Ventilator 45 07/27/20 02:00 36 118/75 Mechanical Ventilator 45 07/27/20 01:01 122 36 50 07/27/20 01:00 122 35 115/81 (92) 95 07/27/20 01:00 35 115/81 Mechanical Ventilator 45 07/27/20 01:00 36 115/81 Mechanical Ventilator 45 07/27/20 00:00 36 124/71 Mechanical Ventilator 45 07/27/20 00:00 36 122/71 Mechanical Ventilator 45 07/27/20 00:00 Mechanical Ventilator Mechanical Ventilator Mechanical Ventilator 07/27/20 00:00 124 07/27/20 00:00 45 07/27/20 00:00 124 45 122/71 (88) 94 07/26/20 23:28 125 34 50 07/26/20 23:00 124 49 122/69 (86) 94 07/26/20 23:00 36 122/69 Mechanical Ventilator 45 07/26/20 23:00 36 122/69 Mechanical Ventilator 45 07/26/20 22:00 126 54 111/55 (73) 94 07/26/20 22:00 36 111/55 Mechanical Ventilator 45 07/26/20 22:00 36 111/55 Mechanical Ventilator 45 07/26/20 21:00 145 44 120/59 (79) 71 07/26/20 21:00 36 120/59 Mechanical Ventilator 45 07/26/20 21:00 36 120/59 Mechanical Ventilator 45 07/26/20 20:58 100.9 07/26/20 20:55 102.3 07/26/20 20:39 60 07/26/20 20:26 139 48 45 07/26/20 20:00 Mechanical Ventilator Mechanical Ventilator Mechanical Ventilator 07/26/20 20:00 36 115/53 Mechanical Ventilator 45 07/26/20 20:00 36 115/53 Mechanical Ventilator 45 07/26/20 20:00 138 07/26/20 20:00 138 62 115/53 (73) 74 07/26/20 20:00 45 07/26/20 19:15 118 48 40 07/26/20 19:00 100.9 113 32 105/59 (74) 95 07/26/20 19:00 30 105/59 Mechanical Ventilator 45 07/26/20 19:00 30 105/59 45 07/26/20 18:30 102 35 93/60 (71) 97 07/26/20 18:00 31 100/57 Mechanical Ventilator 45 07/26/20 18:00 31 100/57 Mechanical Ventilator 45 07/26/20 18:00 105 34 100/57 (71) 96 07/26/20 17:00 106 35 91/54 (66) 96 07/26/20 17:00 34 91/54 Mechanical Ventilator 45 07/26/20 17:00 34 91/54 Mechanical Ventilator 45 07/26/20 17:00 100.9 07/26/20 16:30 111 44 92 07/26/20 16:00 Mechanical Ventilator Mechanical Ventilator Mechanical Ventilator 07/26/20 16:00 104 07/26/20 16:00 36 102/63 Mechanical Ventilator 45 07/26/20 16:00 36 102/63 Mechanical Ventilator 45 07/26/20 16:00 105 35 98/60 (73) 96 07/26/20 16:00 45 07/26/20 16:00 101.6 103 32 102/63 (76) 96 07/26/20 15:30 106 36 97/67 (77) 96 07/26/20 15:00 110 40 107/64 (78) 93 07/26/20 15:00 32 107/64 Mechanical Ventilator 45 07/26/20 15:00 33 105/70 Mechanical Ventilator 45 07/26/20 14:30 107 40 100/66 (77) 96 07/26/20 14:00 29 98/68 Mechanical Ventilator 45 07/26/20 14:00 33 107/64 Mechanical Ventilator 45 07/26/20 14:00 103 37 98/68 (78) 98 07/26/20 13:52 108 32 45 07/26/20 13:30 102 33 96/61 (73) 97 07/26/20 13:00 101 32 96/58 (71) 97 07/26/20 13:00 30 96/58 Mechanical Ventilator 45 07/26/20 13:00 29 96/58 Non-Rebreather 45 07/26/20 12:30 101 27 94/62 (73) 97 07/26/20 12:00 99.6 101 29 98/60 (73) 98 07/26/20 12:00 28 98/60 Mechanical Ventilator 45 07/26/20 12:00 29 98/60 Mechanical Ventilator 45 07/26/20 12:00 45 07/26/20 12:00 Mechanical Ventilator Mechanical Ventilator Mechanical Ventilator 07/26/20 12:00 100 07/26/20 11:30 102 32 98/62 (74) 97 07/26/20 11:00 23 97/63 Mechanical Ventilator 45 07/26/20 11:00 23 97/63 Mechanical Ventilator 45 07/26/20 11:00 102 33 97/63 (74) 97 07/26/20 10:30 107 32 97/63 (74) 96 I&O Intake and Output 07/26/20 07/27/20 19:00 07:00 Intake Total 1285 ml 1140 ml Output Total 950 ml 480 ml Balance 335 ml 660 ml Free Water 85 ml 30 ml IV Total 820 ml 780 ml Tube Feeding 380 ml 330 ml Output Urine Total 670 ml 480 ml Chest Tube Drainage Total 280 ml Dressing: saturated Cardiovascular: RSR Respiratory: clear, decreased breath sounds Abdomen: soft, non-tender, present bowel sounds, non-distended Extremities: no edema, no tenderness, no cyanosis Laboratory Tests Test 07/27/20 05:30 White Blood Count 10.3 K/UL (4.8-10.8) Red Blood Count 3.00 M/UL (4.20-5.40) L Hemoglobin 8.5 G/DL (12.0-16.0) L Hematocrit 28.3 % (37.0-47.0) L Mean Corpuscular Volume 94 FL (80-99) Mean Corpuscular Hemoglobin 28.4 PG (27.0-31.0) Mean Corpuscular Hemoglobin Concent 30.1 G/DL (32.0-36.0) L Red Cell Distribution Width 17.8 % (11.6-14.8) H Platelet Count 267 K/UL (150-450) Mean Platelet Volume 7.7 FL (6.5-10.1) Neutrophils (%) (Auto) 51.4 % (45.0-75.0) Lymphocytes (%) (Auto) 31.7 % (20.0-45.0) Monocytes (%) (Auto) 8.5 % (1.0-10.0) Eosinophils (%) (Auto) 7.2 % (0.0-3.0) H Basophils (%) (Auto) 1.2 % (0.0-2.0) Sodium Level 145 MMOL/L (136-145) Potassium Level 4.5 MMOL/L (3.5-5.1) Chloride Level 107 MMOL/L (98-107) Carbon Dioxide Level 35 MMOL/L (21-32) H Anion Gap 3 mmol/L (5-15) L Blood Urea Nitrogen 5 mg/dL (7-18) L Creatinine 0.5 MG/DL (0.55-1.30) L Estimat Glomerular Filtration Rate > 60 mL/min (>60) Glucose Level 116 MG/DL (74-106) H Calcium Level 8.3 MG/DL (8.5-10.1) L Total Bilirubin 0.6 MG/DL (0.2-1.0) Aspartate Amino Transf (AST/SGOT) 28 U/L (15-37) Alanine Aminotransferase (ALT/SGPT) 18 U/L (12-78) Alkaline Phosphatase 64 U/L (46-116) Total Protein 6.8 G/DL (6.4-8.2) Albumin 2.4 G/DL (3.4-5.0) L Globulin 4.4 g/dL Albumin/Globulin Ratio 0.5 (1.0-2.7) L Plan Problems: (1) Respiratory distress (2) Respiratory failure Assessment & Plan: 50-year-old female Covid positive respiratory insufficiency intubated on ventilatory support declining. Leukocytosis increase oxygen requirement. Vent settings per pulmonology reviewed identified and agree. Unfortunately further surgical invention at this time is not appropriate as zaida shen is not a candidate and her current condition. Prognosis overall guarded. Tracheostomy can be considered in the future if recovering or shows improvement and requires unable to be weaned from ventilator support. Currently okay for nutritional optimization with NG tube. Will need significant monitoring for decubitus formation given patient's size and condition. Okay for air mattress tolerated. Turn every 2 hours as tolerated. Patient is otherwise critically ill and blood pressure labile. Will need to monitor closely.Bilateral infiltrates are again demonstrated. Stable tube and line positions. will need trach will need to wean vent first no cuff leak trach okay Improving weaning well DC planning placement much improved peg placement trach changed acls now resuscitated (3) Hypoxia (4) Pneumonia due to COVID-19 virus Assessment & Plan: ++ as per pulm and ID (5) Diabetes mellitus out of control Assessment & Plan: DAILY ESTIMATED NEEDS: Needs based on Critical care, obesity 11-14kcal/kg actual body wt (140kg) kcals/kg 5098-5459 total kcals 1.5-2.0g prot/kg IBW (64.5kg) g protein/kg 96-129 g total protein 25-30ml/kg abw (83kg) mL/kg 1278-6227 total fluid mLs NUTRITION DIAGNOSIS: Swallowing difficulty R/T respiratory failure as evidenced by pt orally intubated and sedated, on OGT feeds. CURRENT TF: Vital 1.2 goal of 60ml/hr ENTERAL NUTRITION RECOMMENDATIONS: Vital AF 1.2 @ 60ml/hr x 24 hrs to provide 1440ml, 1728kcal, 108g prot, 1168ml free water * Maintain current critical care and carb controlled TF formula of Vital AF * TF @ goal meeds 100% est kcal/prot needs * HOB over 30 degrees/ water flush per MD TF may be lowered to 55ml/hr for improved BG control while maintaining Kcal and pro needs. ADDITIONAL RECOMMENDATIONS: * Calibrated bedscale wt * Monitor Propofol rate, need for TF adjustment-> now off * Monitor BGs closely : now improved, on novolog q 6rs + NISS * Monitor lytes- K elevated, monitor need for TF change * Rec bowel regimen- now w/ rectal tube . (6) Pneumothorax on right Assessment & Plan: right tension pneumothorax trach changed for cuff leak and decreased volumes pressures high after and ptx tension acls resuscitated right chest tube placed ptx resolved cont chest tube to suction am cxr wean vent Right chest tube, tracheostomy, nasogastric tube remain. Previously demonstrated subcutaneous emphysema has nearly completely cleared, with only questionably small residual in the left supraclavicular fossa. Extensive bilateral infiltrates persist. There is no pneumothorax currently. The heart is borderline enlarged. Pneumoperitoneum persists, may be slightly decreased Impression: Markedly improved subcutaneous emphysema Unchanged bilateral infiltrates Persistent but perhaps slightly decreased pneumoperitoneum (7) DEVENDRA (acute kidney injury) (8) Morbid obesity Az Devine Jul 27, 2020 10:09
--- NOTE | 2020-07-27 10:20 | Diagnostic Imaging Report ---
EXAM: XR Chest, 1 View CLINICAL HISTORY: F/U TECHNIQUE: Frontal view of the chest. COMPARISON: 07/26/20. FINDINGS: Lungs: There unchanged moderate diffuse bilateral alveolar infiltrates. There is a tracheostomy tube in good position. Pleural space: There is been development of a 10-20% right pneumothorax. There is a right-sided chest tube in unchanged position. Heart: Unremarkable. No cardiomegaly. Mediastinum: Unremarkable. Bones/joints: Unremarkable. Upper abdomen: There is unchanged moderate pneumoperitoneum. IMPRESSION: 1. There is been development of a 10-20% right pneumothorax. There is a right-sided chest tube in unchanged position. 2. There unchanged moderate diffuse bilateral alveolar infiltrates. There is a right-sided chest tube in unchanged position. 3. There is unchanged moderate pneumoperitoneum. <MYCVCSECTION> Communications: 07/27/20 10:31 Verify Receipt Verified receipt with RAKEL Zhang on 07/27 10:31 (-08:00)
--- NOTE | 2020-07-27 11:51 | Pulmonology Progress Note ---
Subjective ROS Limited/Unobtainable: No Interval Events: Events noted; required R CT after code. Also trach changed to 7 Constitutional: Reports: fever, other - resolved HEENT: Repors: no symptoms Respiratory: Reports: no symptoms Cardiovascular: Reports: no symptoms Gastrointestinal/Abdominal: Reports: vomiting Genitourinary: Reports: no symptoms Allergies: Coded Allergies: No Known Allergies (Unverified , 05/28/20) All Systems: reviewed and negative except above Objective Last 24 Hour Vital Signs Date Time Temp Pulse Resp B/P (MAP) Pulse Ox O2 Delivery O2 Flow Rate FiO2 07/27/20 11:00 97 23 95/58 (70) 98 07/27/20 11:00 97 18 99/60 (73) 100 07/27/20 10:48 98 31 45 07/27/20 10:00 100 23 102/61 (75) 95 07/27/20 09:05 102 25 45 07/27/20 09:00 105 23 101/63 (76) 96 07/27/20 08:00 106 07/27/20 08:00 100.0 107 42 111/65 (80) 96 07/27/20 08:00 45 07/27/20 08:00 Mechanical Ventilator Mechanical Ventilator Mechanical Ventilator 07/27/20 07:45 30 101/63 Mechanical Ventilator 45 07/27/20 07:45 30 101/63 Mechanical Ventilator 45 07/27/20 07:30 105 23 101/63 (76) 96 07/27/20 07:00 100.5 104 29 97/65 (76) 96 07/27/20 07:00 29 97/65 Mechanical Ventilator 45 07/27/20 07:00 29 97/65 Mechanical Ventilator 45 07/27/20 06:45 105 30 45 07/27/20 06:30 106 28 101/51 (68) 96 07/27/20 06:30 107 30 07/27/20 06:00 29 102/54 Mechanical Ventilator 45 07/27/20 06:00 29 102/54 Mechanical Ventilator 45 07/27/20 06:00 107 29 102/54 (70) 96 07/27/20 05:11 109 30 45 07/27/20 05:00 109 27 101/56 (71) 96 96 07/27/20 05:00 37 101/56 Mechanical Ventilator 45 07/27/20 05:00 37 101/56 Mechanical Ventilator 45 07/27/20 04:10 102.3 07/27/20 04:00 45 07/27/20 04:00 114 36 102/67 (79) 96 07/27/20 04:00 Mechanical Ventilator Mechanical Ventilator Mechanical Ventilator 07/27/20 04:00 36 102/67 Mechanical Ventilator 40 07/27/20 04:00 36 102/67 Mechanical Ventilator 45 07/27/20 04:00 114 07/27/20 03:00 35 114/71 Mechanical Ventilator 45 07/27/20 03:00 35 114/71 Mechanical Ventilator 45 07/27/20 03:00 102.3 117 35 114/71 (85) 96 07/27/20 03:00 230 35 50 07/27/20 02:00 119 65 118/75 (89) 97 07/27/20 02:00 36 118/75 Mechanical Ventilator 45 07/27/20 02:00 36 118/75 Mechanical Ventilator 45 07/27/20 01:01 122 36 50 07/27/20 01:00 122 35 115/81 (92) 95 07/27/20 01:00 35 115/81 Mechanical Ventilator 45 07/27/20 01:00 36 115/81 Mechanical Ventilator 45 07/27/20 00:00 36 124/71 Mechanical Ventilator 45 07/27/20 00:00 36 122/71 Mechanical Ventilator 45 07/27/20 00:00 Mechanical Ventilator Mechanical Ventilator Mechanical Ventilator 07/27/20 00:00 124 07/27/20 00:00 45 07/27/20 00:00 124 45 122/71 (88) 94 07/26/20 23:28 125 34 50 07/26/20 23:00 124 49 122/69 (86) 94 07/26/20 23:00 36 122/69 Mechanical Ventilator 45 07/26/20 23:00 36 122/69 Mechanical Ventilator 45 07/26/20 22:00 126 54 111/55 (73) 94 07/26/20 22:00 36 111/55 Mechanical Ventilator 45 07/26/20 22:00 36 111/55 Mechanical Ventilator 45 07/26/20 21:00 145 44 120/59 (79) 71 07/26/20 21:00 36 120/59 Mechanical Ventilator 45 07/26/20 21:00 36 120/59 Mechanical Ventilator 45 3/5/21 20:58 100.9 07/26/20 20:55 102.3 07/26/20 20:39 60 07/26/20 20:26 139 48 45 07/26/20 20:00 Mechanical Ventilator Mechanical Ventilator Mechanical Ventilator 07/26/20 20:00 36 115/53 Mechanical Ventilator 45 07/26/20 20:00 36 115/53 Mechanical Ventilator 45 07/26/20 20:00 138 07/26/20 20:00 138 62 115/53 (73) 74 07/26/20 20:00 45 07/26/20 19:15 118 48 40 07/26/20 19:00 100.9 113 32 105/59 (74) 95 07/26/20 19:00 30 105/59 Mechanical Ventilator 45 07/26/20 19:00 30 105/59 45 07/26/20 18:30 102 35 93/60 (71) 97 07/26/20 18:00 31 100/57 Mechanical Ventilator 45 07/26/20 18:00 31 100/57 Mechanical Ventilator 45 07/26/20 18:00 105 34 100/57 (71) 96 07/26/20 17:00 106 35 91/54 (66) 96 07/26/20 17:00 34 91/54 Mechanical Ventilator 45 07/26/20 17:00 34 91/54 Mechanical Ventilator 45 07/26/20 17:00 100.9 07/26/20 16:30 111 44 92 07/26/20 16:00 Mechanical Ventilator Mechanical Ventilator Mechanical Ventilator 07/26/20 16:00 104 07/26/20 16:00 36 102/63 Mechanical Ventilator 45 07/26/20 16:00 36 102/63 Mechanical Ventilator 45 07/26/20 16:00 105 35 98/60 (73) 96 07/26/20 16:00 45 07/26/20 16:00 101.6 103 32 102/63 (76) 96 07/26/20 15:30 106 36 97/67 (77) 96 07/26/20 15:00 110 40 107/64 (78) 93 07/26/20 15:00 32 107/64 Mechanical Ventilator 45 07/26/20 15:00 33 105/70 Mechanical Ventilator 45 07/26/20 14:30 107 40 100/66 (77) 96 07/26/20 14:00 29 98/68 Mechanical Ventilator 45 07/26/20 14:00 33 107/64 Mechanical Ventilator 45 07/26/20 14:00 103 37 98/68 (78) 98 07/26/20 13:52 108 32 45 07/26/20 13:30 102 33 96/61 (73) 97 07/26/20 13:00 101 32 96/58 (71) 97 07/26/20 13:00 30 96/58 Mechanical Ventilator 45 07/26/20 13:00 29 96/58 Non-Rebreather 45 07/26/20 12:30 101 27 94/62 (73) 97 07/26/20 12:00 99.6 101 29 98/60 (73) 98 07/26/20 12:00 28 98/60 Mechanical Ventilator 45 07/26/20 12:00 29 98/60 Mechanical Ventilator 45 07/26/20 12:00 45 07/26/20 12:00 Mechanical Ventilator Mechanical Ventilator Mechanical Ventilator 07/26/20 12:00 100 Intake and Output 07/26/20 07/27/20 19:00 07:00 Intake Total 1285 ml 1140 ml Output Total 950 ml 480 ml Balance 335 ml 660 ml Free Water 85 ml 30 ml IV Total 820 ml 780 ml Tube Feeding 380 ml 330 ml Output Urine Total 670 ml 480 ml Chest Tube Drainage Total 280 ml General Appearance: no acute distress HEENT: normocephalic, status post trach Respiratory: chest wall non-tender Cardiovascular: normal peripheral pulses Abdomen: normal bowel sounds, other - s/p PEG Laboratory Tests 07/27/20 05:30: White Blood Count 10.3, Red Blood Count 3.00L, Hemoglobin 8.5L, Hematocrit 28.3L , Mean Corpuscular Volume 94, Mean Corpuscular Hemoglobin 28.4, Mean Corpuscular Hemoglobin Concent 30.1L, Red Cell Distribution Width 17.8H, Platelet Count 267, Mean Platelet Volume 7.7, Neutrophils (%) (Auto) 51.4, Lymphocytes (%) (Auto) 31.7, Monocytes (%) (Auto) 8.5, Eosinophils (%) (Auto) 7.2H, Basophils (%) (Au to) 1.2, Sodium Level 145, Potassium Level 4.5, Chloride Level 107, Carbon Dioxide Level 35H, Anion Gap 3L, Blood Urea Nitrogen 5L, Creatinine 0.5L, Estimat Glomerular Filtration Rate > 60, Glucose Level 116H, Calcium Level 8.3L, Total Bilirubin 0.6, Aspartate Amino Transf (AST/SGOT) 28, Alanine Aminotransferase (ALT/SGPT) 18, Alkaline Phosphatase 64, Total Protein 6.8, Al bumin 2.4L, Globulin 4.4, Albumin/Globulin Ratio 0.5L Current Medications Medications (Trade) Dose Ordered Sig/Zelda Route PRN Reason Start Time Stop Time Status Last Admin Dose Admin Acetaminophen (Tylenol) 650 mg Q4H PRN NG Temp >100.5 07/27/20 03:45 08/26/20 03:44 07/26/20 20:25 Acetaminophen (Tylenol) 650 mg Q6H PRN NG Mild Pain (Pain Scale 1-3) 06/29/20 10:15 07/29/20 10:14 07/22/20 11:56 Calcitonin [place] (Miacalcin) 1 sprays DAILY NASAL 07/22/20 14:00 10/20/20 13:59 07/27/20 08:50 Chlorhexidine Gluconate (Inna-Hex 2%) 1 applic DAILY@2000 TOPIC 07/20/20 20:00 10/18/20 19:59 07/26/20 20:00 Dextrose (Dextrose 50%) 25 ml Q30M PRN IV Hypoglycemia 06/05/20 10:45 09/03/20 10:44 Dextrose (Dextrose 50%) 50 ml Q30M PRN IV Hypoglycemia 06/05/20 10:45 09/03/20 10:44 Dextrose/Sodium Chloride 1,000 ml @ 50 mls/hr Q20H IV 07/25/20 11:15 08/24/20 11:14 07/27/20 04:00 Docusate Sodium (Colace) 100 mg TWICE A DAY NG 07/26/20 18:00 08/25/20 17:59 07/27/20 08:50 Enoxaparin Sodium (Lovenox) 110 mg EVERY 12 HOURS SUBQ 07/17/20 21:00 10/15/20 20:59 07/27/20 08:51 Fentanyl Citrate 250 ml @ 1 mls/hr Q24H IV 07/27/20 07:45 07/29/20 07:44 07/27/20 07:45 Guaifenesin/ Codeine Phosphate (Robitussin with codeine) 5 ml Q6H PRN NG For Cough 07/14/20 14:15 08/13/20 14:14 07/18/20 21:44 Lansoprazole (Prevacid) 30 mg DAILY GT 07/18/20 09:00 08/09/20 08:59 07/27/20 08:49 Meropenem 1 gm/ Sodium Chloride 55 ml @ 110 mls/hr Q8H IVPB 07/22/20 12:00 07/29/20 11:59 07/27/20 04:00 Midazolam HCl 200 ml @ 0 mls/hr Q24H PRN IV sedation 07/22/20 14:06 07/29/20 14:05 07/27/20 07:45 Midodrine (Pro-Amatine) 10 mg Q8HR GT 06/30/20 14:00 09/12/20 13:59 07/27/20 06:00 Polyethylene Glycol (Miralax) 17 gm BEDTIME ORAL 07/26/20 21:00 08/25/20 20:59 07/26/20 21:11 Quetiapine Fumarate (SEROqueL) 50 mg Q12HR GT 07/16/20 13:30 08/30/20 13:29 07/27/20 08:49 Assessment/Plan Assessment/Plan 1. COVID-19 pneumonia -Intubated 05/28/20 - We will continue broad-spectrum antibiotics. -s/p solumedrol, Rocephin -Continue PEEP 6 ->7 ->5 - Peak airway pressures better - FiO2 100% -> 90 ->80->60 ->40 ->80 ->100 ->70 ->60 -> 50 ->45 ->40 ->50 ->40%; PEEP 7 ->5 - s/p PEG 2. Hyponatremia -Per primary MD 3. Elevated inflammatory markers - has high D dimer; On Lovenox -> Lovenox held given anemia 4. DVT of the right calf - once stable, consider IVC filter per heme vs oral DOAC - was on Lovenox but held given anemia 5. Decreased PEEP S/p trach Reported cuff leak per RN/RT Changed 07/22/20 however still has cuff leak On low dose Levophed; will attempt to wean off Will wean off IV sedation; started Seroquel s/p PEG Required R CT due to PTX 07/22/20 - removal pending less drainage per surgery Javier Nava MD Jul 27, 2020 11:51
--- NOTE | 2020-07-27 12:13 | Infectious Diseases Prog Note ---
Assessment/Plan Assessment/Plan A 1. COVID19 pneumonia 2. Hypoxic respiratory failure 3. Morbid obesity 4. DM type 2 5. Thrombocytopenia 6. leukocytosis resolved 7. Pseudomonas pneumonia 8. Anemia 9. VDRF 10. Cardiac arrest 11. UTI 12. Right pneumothorax 13 Gastrostomy status P 1. Finished remdesivir course 2. Finished steroid course 3.Continue Meropenem Subjective ROS Limited/Unobtainable: Yes Constitutional: Reports: fever, other - Qy=510.3 Allergies: Coded Allergies: No Known Allergies (Unverified , 05/28/20) Objective Last 24 Hour Vital Signs Date Time Temp Pulse Resp B/P (MAP) Pulse Ox O2 Delivery O2 Flow Rate FiO2 07/27/20 11:00 97 23 95/58 (70) 98 07/27/20 11:00 97 18 99/60 (73) 100 07/27/20 10:48 98 31 45 07/27/20 10:00 100 23 102/61 (75) 95 07/27/20 09:05 102 25 45 07/27/20 09:00 105 23 101/63 (76) 96 07/27/20 08:00 106 07/27/20 08:00 100.0 107 42 111/65 (80) 96 07/27/20 08:00 45 07/27/20 08:00 Mechanical Ventilator Mechanical Ventilator Mechanical Ventilator 07/27/20 07:45 30 101/63 Mechanical Ventilator 45 07/27/20 07:45 30 101/63 Mechanical Ventilator 45 07/27/20 07:30 105 23 101/63 (76) 96 07/27/20 07:00 100.5 104 29 97/65 (76) 96 07/27/20 07:00 29 97/65 Mechanical Ventilator 45 07/27/20 07:00 29 97/65 Mechanical Ventilator 45 07/27/20 06:45 105 30 45 07/27/20 06:30 106 28 101/51 (68) 96 07/27/20 06:30 107 30 07/27/20 06:00 29 102/54 Mechanical Ventilator 45 07/27/20 06:00 29 102/54 Mechanical Ventilator 45 07/27/20 06:00 107 29 102/54 (70) 96 07/27/20 05:11 109 30 45 07/27/20 05:00 109 27 101/56 (71) 96 96 07/27/20 05:00 37 101/56 Mechanical Ventilator 45 07/27/20 05:00 37 101/56 Mechanical Ventilator 45 07/27/20 04:10 102.3 07/27/20 04:00 45 07/27/20 04:00 114 36 102/67 (79) 96 07/27/20 04:00 Mechanical Ventilator Mechanical Ventilator Mechanical Ventilator 07/27/20 04:00 36 102/67 Mechanical Ventilator 40 07/27/20 04:00 36 102/67 Mechanical Ventilator 45 07/27/20 04:00 114 07/27/20 03:00 35 114/71 Mechanical Ventilator 45 07/27/20 03:00 35 114/71 Mechanical Ventilator 45 07/27/20 03:00 102.3 117 35 114/71 (85) 96 07/27/20 03:00 230 35 50 07/27/20 02:00 119 65 118/75 (89) 97 07/27/20 02:00 36 118/75 Mechanical Ventilator 45 07/27/20 02:00 36 118/75 Mechanical Ventilator 45 07/27/20 01:01 122 36 50 07/27/20 01:00 122 35 115/81 (92) 95 07/27/20 01:00 35 115/81 Mechanical Ventilator 45 07/27/20 01:00 36 115/81 Mechanical Ventilator 45 07/27/20 00:00 36 124/71 Mechanical Ventilator 45 07/27/20 00:00 36 122/71 Mechanical Ventilator 45 07/27/20 00:00 Mechanical Ventilator Mechanical Ventilator Mechanical Ventilator 07/27/20 00:00 124 07/27/20 00:00 45 07/27/20 00:00 124 45 122/71 (88) 94 07/26/20 23:28 125 34 50 07/26/20 23:00 124 49 122/69 (86) 94 07/26/20 23:00 36 122/69 Mechanical Ventilator 45 07/26/20 23:00 36 122/69 Mechanical Ventilator 45 07/26/20 22:00 126 54 111/55 (73) 94 07/26/20 22:00 36 111/55 Mechanical Ventilator 45 07/26/20 22:00 36 111/55 Mechanical Ventilator 45 07/26/20 21:00 145 44 120/59 (79) 71 07/26/20 21:00 36 120/59 Mechanical Ventilator 45 07/26/20 21:00 36 120/59 Mechanical Ventilator 45 07/26/20 20:58 100.9 3 20:55 102.3 07/26/20 20:39 60 07/26/20 20:26 139 48 45 07/26/20 20:00 Mechanical Ventilator Mechanical Ventilator Mechanical Ventilator 07/26/20 20:00 36 115/53 Mechanical Ventilator 45 07/26/20 20:00 36 115/53 Mechanical Ventilator 45 07/26/20 20:00 138 07/26/20 20:00 138 62 115/53 (73) 74 07/26/20 20:00 45 07/26/20 19:15 118 48 40 07/26/20 19:00 100.9 113 32 105/59 (74) 95 07/26/20 19:00 30 105/59 Mechanical Ventilator 45 07/26/20 19:00 30 105/59 45 07/26/20 18:30 102 35 93/60 (71) 97 07/26/20 18:00 31 100/57 Mechanical Ventilator 45 07/26/20 18:00 31 100/57 Mechanical Ventilator 45 07/26/20 18:00 105 34 100/57 (71) 96 07/26/20 17:00 106 35 91/54 (66) 96 07/26/20 17:00 34 91/54 Mechanical Ventilator 45 07/26/20 17:00 34 91/54 Mechanical Ventilator 45 07/26/20 17:00 100.9 07/26/20 16:30 111 44 92 07/26/20 16:00 Mechanical Ventilator Mechanical Ventilator Mechanical Ventilator 07/26/20 16:00 104 07/26/20 16:00 36 102/63 Mechanical Ventilator 45 07/26/20 16:00 36 102/63 Mechanical Ventilator 45 07/26/20 16:00 105 35 98/60 (73) 96 07/26/20 16:00 45 07/26/20 16:00 101.6 103 32 102/63 (76) 96 07/26/20 15:30 106 36 97/67 (77) 96 07/26/20 15:00 110 40 107/64 (78) 93 07/26/20 15:00 32 107/64 Mechanical Ventilator 45 07/26/20 15:00 33 105/70 Mechanical Ventilator 45 07/26/20 14:30 107 40 100/66 (77) 96 07/26/20 14:00 29 98/68 Mechanical Ventilator 45 07/26/20 14:00 33 107/64 Mechanical Ventilator 45 07/26/20 14:00 103 37 98/68 (78) 98 07/26/20 13:52 108 32 45 07/26/20 13:30 102 33 96/61 (73) 97 07/26/20 13:00 101 32 96/58 (71) 97 07/26/20 13:00 30 96/58 Mechanical Ventilator 45 07/26/20 13:00 29 96/58 Non-Rebreather 45 07/26/20 12:30 101 27 94/62 (73) 97 Height (Feet): 5 Height (Inches): 5.00 Weight (Pounds): 223 HEENT: status post trach Respiratory/Chest: other - on ventilator, FIO2=45%, R chest tube Cardiovascular: normal rate, other - PICC line Abdomen: soft, non tender, other - GT Neurologic/Psychiatric: other - sedated Laboratory Tests Test 07/27/20 05:30 White Blood Count 10.3 K/UL (4.8-10.8) Red Blood Count 3.00 M/UL (4.20-5.40) L Hemoglobin 8.5 G/DL (12.0-16.0) L Hematocrit 28.3 % (37.0-47.0) L Mean Corpuscular Volume 94 FL (80-99) Mean Corpuscular Hemoglobin 28.4 PG (27.0-31.0) Mean Corpuscular Hemoglobin Concent 30.1 G/DL (32.0-36.0) L Red Cell Distribution Width 17.8 % (11.6-14.8) H Platelet Count 267 K/UL (150-450) Mean Platelet Volume 7.7 FL (6.5-10.1) Neutrophils (%) (Auto) 51.4 % (45.0-75.0) Lymphocytes (%) (Auto) 31.7 % (20.0-45.0) Monocytes (%) (Auto) 8.5 % (1.0-10.0) Eosinophils (%) (Auto) 7.2 % (0.0-3.0) H Basophils (%) (Auto) 1.2 % (0.0-2.0) Sodium Level 145 MMOL/L (136-145) Potassium Level 4.5 MMOL/L (3.5-5.1) Chloride Level 107 MMOL/L (98-107) Carbon Dioxide Level 35 MMOL/L (21-32) H Anion Gap 3 mmol/L (5-15) L Blood Urea Nitrogen 5 mg/dL (7-18) L Creatinine 0.5 MG/DL (0.55-1.30) L Estimat Glomerular Filtration Rate > 60 mL/min (>60) Glucose Level 116 MG/DL (74-106) H Calcium Level 8.3 MG/DL (8.5-10.1) L Total Bilirubin 0.6 MG/DL (0.2-1.0) Aspartate Amino Transf (AST/SGOT) 28 U/L (15-37) Alanine Aminotransferase (ALT/SGPT) 18 U/L (12-78) Alkaline Phosphatase 64 U/L (46-116) Total Protein 6.8 G/DL (6.4-8.2) Albumin 2.4 G/DL (3.4-5.0) L Globulin 4.4 g/dL Albumin/Globulin Ratio 0.5 (1.0-2.7) L Current Medications Medications (Trade) Dose Ordered Sig/Zelda Route PRN Reason Start Time Stop Time Status Last Admin Dose Admin Acetaminophen (Tylenol) 650 mg Q4H PRN NG Temp >100.5 07/27/20 03:45 08/26/20 03:44 07/26/20 20:25 Acetaminophen (Tylenol) 650 mg Q6H PRN NG Mild Pain (Pain Scale 1-3) 06/29/20 10:15 07/29/20 10:14 07/22/20 11:56 Calcitonin [place] (Miacalcin) 1 sprays DAILY NASAL 07/22/20 14:00 10/20/20 13:59 07/27/20 08:50 Chlorhexidine Gluconate (Inna-Hex 2%) 1 applic DAILY@2000 TOPIC 07/20/20 20:00 10/18/20 19:59 07/26/20 20:00 Dextrose (Dextrose 50%) 25 ml Q30M PRN IV Hypoglycemia 06/05/20 10:45 09/03/20 10:44 Dextrose (Dextrose 50%) 50 ml Q30M PRN IV Hypoglycemia 06/05/20 10:45 09/03/20 10:44 Dextrose/Sodium Chloride 1,000 ml @ 50 mls/hr Q20H IV 07/25/20 11:15 08/24/20 11:14 07/27/20 04:00 Docusate Sodium (Colace) 100 mg TWICE A DAY NG 07/26/20 18:00 08/25/20 17:59 07/27/20 08:50 Enoxaparin Sodium (Lovenox) 110 mg EVERY 12 HOURS SUBQ 07/17/20 21:00 10/15/20 20:59 07/27/20 08:51 Fentanyl Citrate 250 ml @ 1 mls/hr Q24H IV 07/27/20 07:45 07/29/20 07:44 07/27/20 07:45 Guaifenesin/ Codeine Phosphate (Robitussin with codeine) 5 ml Q6H PRN NG For Cough 07/14/20 14:15 08/13/20 14:14 07/18/20 21:44 Lansoprazole (Prevacid) 30 mg DAILY GT 07/18/20 09:00 08/09/20 08:59 07/27/20 08:49 Meropenem 1 gm/ Sodium Chloride 55 ml @ 110 mls/hr Q8H IVPB 07/22/20 12:00 07/29/20 11:59 07/27/20 04:00 Midazolam HCl 200 ml @ 0 mls/hr Q24H PRN IV sedation 07/22/20 14:06 07/29/20 14:05 07/27/20 07:45 Midodrine (Pro-Amatine) 10 mg Q8HR GT 06/30/20 14:00 09/12/20 13:59 07/27/20 06:00 Polyethylene Glycol (Miralax) 17 gm BEDTIME ORAL 07/26/20 21:00 08/25/20 20:59 07/26/20 21:11 Quetiapine Fumarate (SEROqueL) 50 mg Q12HR GT 07/16/20 13:30 08/30/20 13:29 07/27/20 08:49 Colt Arana MD Jul 27, 2020 12:12
--- NOTE | 2020-07-27 13:17 | NUR ---
NURSE NOTES: Seen by Dr. Burger with [facility].
--- NOTE | 2020-07-27 13:49 | Nephrology Progress Note ---
Assessment/Plan Problem List: (1) DEVENDRA (acute kidney injury) (2) Morbid obesity (3) Diabetes mellitus out of control (4) Pneumonia due to COVID-19 virus (5) Respiratory failure Assessment Acute renal failure Obstructive uropathy, clogged Lennon Respiratory failure COVID-19 pneumonia Morbid obesity Plan July 27: Full code. In ICU. Trach to vent. Labs reviewed. Renal parameters and electrolytes stable. July 26: Remains in ICU. Remains full code. Trach to vent. Labs reviewed. Abnormal electrolytes addressed. Continue per consultants. July 25: Seen in ICU. Received PEG yesterday. Has trach connected to vent. Full code. Labs reviewed. Albumin bolus given. IV started on table feeding via GT tube initiated. July 24: Patient seen in ICU. Status quo. Has trach. Being ventilated. Has right chest tube. Labs reviewed. Continue per consultants. Low magnesium and low phosphorus replaced. July 23: Patient seen in ICU. Discussed with RN. Yesterday the patient developed tension pneumothorax. Patient has a chest tube today. Labs reviewed. Renal parameters stable. Medication list reviewed. July 22: Status quo. Labs reviewed. Serum calcium elevated. Vitamin D discontinued. Pamidronate 60 mg IV given. Continue to monitor calcium and phosphorus. Patient due for PEG today. July 21: Status quo. Awake responsive. Labs reviewed. Medication list reviewed. Stable from renal standpoint of view. Due for PEG tomorrow. Cont inue her current management. July 20: Status quo. PEG procedure deferred to July 22. Patient remains full code. Abnormal electrolytes addressed. FiO2 50% unchanged. Continue per consultants. July 19: Status quo. Due for PEG insertion today. Remains full code. Trach and vent. Low magnesium addressed. Continue per consultants. FiO2 50%. July 18: Status quo. Labs reviewed. Low potassium addressed. Continue per consultants. Remains full code. July 17: Remains full code. Trach to vent. FiO2 40%. Labs reviewed. Low potassium addressed. Continue per consultants. July 16: Status quo. FiO2 45%. Discussed with RN. Continue to taper her mind altering medications and sedatives. Stable from renal standpoint of view. Abnormal electrolytes addressed. July 15: Full code. FiO2 50%. Intubated on ventilator. No labs drawn today. Continue per consultants. July 14: Status quo. FiO2 50%. Labs reviewed. Renal parameters stable. Continue per current treatment plan and consultants. Medication list reviewed. July 13: FiO2 60% unchanged. Labs reviewed. Renal parameters stable. Medication list reviewed. Continue per consultants. July 12: Full code. Labs reviewed. Normal electrolytes addressed. Continue per pulmonary. Medication list reviewed. July 11: Remains full code. On ventilator. FiO2 down to 65%. Renal parameters stable. Low magnesium addressed. Continue her current management. July 10: Full code. On ventilator. FiO2 70%. Hemoglobin mid sevens. Renal parameters stable. Continue per consultants. July 09: Labs reviewed. Renal parameters stable. FiO2 80% unchanged. Continue per pulmonary. July 08: Labs reviewed. Renal parameters and electrolytes stable. ABG suggestive of high PCO2. At this time patient is on FiO2 of 80%. Continue per pulmonary. Continue to monitor renal parameters. July 07: No CHEM panel drawn today. More potassium given. Continue to monitor renal parameters. Continue per consultants. Discussed with RAKEL Veras. July 06: Low potassium addressed. Albumin bolus for low BP given. Patient remains full code. Continue to monitor electrolytes and renal parameters. Continue per consultants. Hemoglobin low today, transfusion per tuckpointer. July 05: Trach to vent. FiO2 80%. Renal parameters stable. PCO2 remains high at 44. Continue to monitor renal parameters. July 04: Patient now trach. Full code. Labs reviewed. Renal parameters stable. Low magnesium addressed. July 03: Intubated. Full code. Labs reviewed. Abnormal electrolytes addressed. Continue per consultants. Overall status unchanged. July 02: Remains intubated. Remains full code. Remains on FiO2 of 70%. Labs reviewed. Abnormal electrolytes addressed. Continue per pulmonary. July 01: Remains on 70% FiO2. Full code. Intubated on ventilator. Retaining CO2. Discussed with RN. Will do ABG today. Albumin bolus given. 1 dose of Diamox given. June 30: Status quo. Labs reviewed. Abnormal electrolytes addressed. Remains full code. Remains on ventilator. Magnesium sulfate 4 gram IVPB given. June 29: Full code. Intubated on ventilator. Labs reviewed. Stable from renal standpoint of view. Continue per consultants. June 28: Remains full code. Remains intubated on ventilator. Labs reviewed. Vitamin D supplement ordered. Continue to monitor renal parameters. Continue per consultants. June 27: Remains full code. Intubated on ventilator. Labs reviewed. Abnormal electrolyte addressed. Continue to monitor renal parameters and electrolytes. Continue per consultants. June 26: Labs reviewed. Remains full code. Remains intubated. Back on NGT feeding. Continue to monitor renal parameters. June 25: Labs reviewed. Renal parameters stable. Remains full code. Due to positional status patient could not be fed via NG tube. Starting TPN? Is being entertained. Continue per consultants. June 24: Labs reviewed. Renal parameters stable. Remains full code. Remains intubated on ventilator. Continue per consultants. June 23: Labs reviewed. Renal parameters stable. Discussed with RN. Abnormal electrolyte addressed. Remains full code. Remains on ventilator. Continue per consultants. June 22: Labs reviewed. Low potassium addressed. Discussed with RAKEL Moran. Patient full code. Remains on ventilator. Continue to monitor renal parameters. June 21. Labs reviewed. Abnormal electrolyte addressed. Full code. Remains on ventilator. Medication list reviewed. Continue per pulmonary manage ment. DC IV fluid, resume Lasix daily, check chest x-ray. June 20: Labs reviewed. Abnormal electrolytes. Patient remains full code. Continue per consultants. Noted and addressed June 19: Labs reviewed. Abnormal electrolytes noted and addressed. Remains intubated on ventilator. Remains full code. June 18: Labs reviewed. Remains intubated on ventilator. Full code. Abnormal electrolyte addressed. Continue as is. June 17: Labs reviewed. Abnormal electrolytes addressed. Patient remains full code and intubated on ventilator. Continue per consultants. Renal parameters are within normal limits. June 16: Labs reviewed. Potassium chloride replaced. Remains full code. Remains intubated on ventilator. Continue per consultants. Continue to monitor renal parameters. June 15: Labs reviewed. Serum creatinine 1. Stable from renal standpoint to view. Continue per consultants. June 14: Labs reviewed. Full code. Serum creatinine of 3.5 down to 1.4. Low potassium addressed. Continue per current treatment plan. Continue to monitor renal parameters. Midodrine started. Albumin bolus given. Previously: DC Lasix drip Increase Protonix dose Monitor renal parameters, electrolytes Per orders Subjective ROS Limited/Unobtainable: Yes Objective Objective Last 24 Hour Vital Signs Date Time Temp Pulse Resp B/P (MAP) Pulse Ox O2 Delivery O2 Flow Rate FiO2 07/27/20 13:15 104 30 45 07/27/20 13:00 100 30 99/55 (70) 100 3/6/21 12:00 98 23 105/58 (74) 98 07/27/20 12:00 Mechanical Ventilator Mechanical Ventilator Mechanical Ventilator 07/27/20 12:00 45 07/27/20 12:00 97 07/27/20 11:00 97 23 95/58 (70) 98 07/27/20 11:00 97 18 99/60 (73) 100 07/27/20 10:48 98 31 45 07/27/20 10:00 100 23 102/61 (75) 95 07/27/20 09:05 102 25 45 07/27/20 09:00 105 23 101/63 (76) 96 07/27/20 08:00 106 07/27/20 08:00 100.0 107 42 111/65 (80) 96 07/27/20 08:00 45 07/27/20 08:00 Mechanical Ventilator Mechanical Ventilator Mechanical Ventilator 07/27/20 07:45 30 101/63 Mechanical Ventilator 45 07/27/20 07:45 30 101/63 Mechanical Ventilator 45 07/27/20 07:30 105 23 101/63 (76) 96 07/27/20 07:00 100.5 104 29 97/65 (76) 96 07/27/20 07:00 29 97/65 Mechanical Ventilator 45 07/27/20 07:00 29 97/65 Mechanical Ventilator 45 07/27/20 06:45 105 30 45 07/27/20 06:30 106 28 101/51 (68) 96 07/27/20 06:30 107 30 07/27/20 06:00 29 102/54 Mechanical Ventilator 45 07/27/20 06:00 29 102/54 Mechanical Ventilator 45 07/27/20 06:00 107 29 102/54 (70) 96 07/27/20 05:11 109 30 45 07/27/20 05:00 109 27 101/56 (71) 96 96 07/27/20 05:00 37 101/56 Mechanical Ventilator 45 07/27/20 05:00 37 101/56 Mechanical Ventilator 45 07/27/20 04:10 102.3 07/27/20 04:00 45 07/27/20 04:00 114 36 102/67 (79) 96 07/27/20 04:00 Mechanical Ventilator Mechanical Ventilator Mechanical Ventilator 07/27/20 04:00 36 102/67 Mechanical Ventilator 40 07/27/20 04:00 36 102/67 Mechanical Ventilator 45 07/27/20 04:00 114 07/27/20 03:00 35 114/71 Mechanical Ventilator 45 07/27/20 03:00 35 114/71 Mechanical Ventilator 45 07/27/20 03:00 102.3 117 35 114/71 (85) 96 07/27/20 03:00 230 35 50 07/27/20 02:00 119 65 118/75 (89) 97 07/27/20 02:00 36 118/75 Mechanical Ventilator 45 07/27/20 02:00 36 118/75 Mechanical Ventilator 45 07/27/20 01:01 122 36 50 07/27/20 01:00 122 35 115/81 (92) 95 07/27/20 01:00 35 115/81 Mechanical Ventilator 45 07/27/20 01:00 36 115/81 Mechanical Ventilator 45 07/27/20 00:00 36 124/71 Mechanical Ventilator 45 07/27/20 00:00 36 122/71 Mechanical Ventilator 45 07/27/20 00:00 Mechanical Ventilator Mechanical Ventilator Mechanical Ventilator 07/27/20 00:00 124 07/27/20 00:00 45 07/27/20 00:00 124 45 122/71 (88) 94 07/26/20 23:28 125 34 50 07/26/20 23:00 124 49 122/69 (86) 94 07/26/20 23:00 36 122/69 Mechanical Ventilator 45 07/26/20 23:00 36 122/69 Mechanical Ventilator 45 07/26/20 22:00 126 54 111/55 (73) 94 07/26/20 22:00 36 111/55 Mechanical Ventilator 45 07/26/20 22:00 36 111/55 Mechanical Ventilator 45 07/26/20 21:00 145 44 120/59 (79) 71 07/26/20 21:00 36 120/59 Mechanical Ventilator 45 07/26/20 21:00 36 120/59 Mechanical Ventilator 45 07/26/20 20:58 100.9 07/26/20 20:55 102.3 07/26/20 20:39 60 07/26/20 20:26 139 48 45 07/26/20 20:00 Mechanical Ventilator Mechanical Ventilator Mechanical Ventilator 07/26/20 20:00 36 115/53 Mechanical Ventilator 45 07/26/20 20:00 36 115/53 Mechanical Ventilator 45 07/26/20 20:00 138 07/26/20 20:00 138 62 115/53 (73) 74 07/26/20 20:00 45 07/26/20 19:15 118 48 40 07/26/20 19:00 100.9 113 32 105/59 (74) 95 07/26/20 19:00 30 105/59 Mechanical Ventilator 45 07/26/20 19:00 30 105/59 45 07/26/20 18:30 102 35 93/60 (71) 97 07/26/20 18:00 31 100/57 Mechanical Ventilator 45 07/26/20 18:00 31 100/57 Mechanical Ventilator 45 07/26/20 18:00 105 34 100/57 (71) 96 07/26/20 17:00 106 35 91/54 (66) 96 07/26/20 17:00 34 91/54 Mechanical Ventilator 45 07/26/20 17:00 34 91/54 Mechanical Ventilator 45 07/26/20 17:00 100.9 07/26/20 16:30 111 44 92 07/26/20 16:00 Mechanical Ventilator Mechanical Ventilator Mechanical Ventilator 07/26/20 16:00 104 07/26/20 16:00 36 102/63 Mechanical Ventilator 45 07/26/20 16:00 36 102/63 Mechanical Ventilator 45 07/26/20 16:00 105 35 98/60 (73) 96 07/26/20 16:00 45 07/26/20 16:00 101.6 103 32 102/63 (76) 96 07/26/20 15:30 106 36 97/67 (77) 96 07/26/20 15:00 110 40 107/64 (78) 93 07/26/20 15:00 32 107/64 Mechanical Ventilator 45 07/26/20 15:00 33 105/70 Mechanical Ventilator 45 07/26/20 14:30 107 40 100/66 (77) 96 07/26/20 14:00 29 98/68 Mechanical Ventilator 45 07/26/20 14:00 33 107/64 Mechanical Ventilator 45 07/26/20 14:00 103 37 98/68 (78) 98 07/26/20 13:52 108 32 45 Intake and Output 07/26/20 07/27/20 19:00 07:00 Intake Total 1285 ml 1140 ml Output Total 950 ml 480 ml Balance 335 ml 660 ml Free Water 85 ml 30 ml IV Total 820 ml 780 ml Tube Feeding 380 ml 330 ml Output Urine Total 670 ml 480 ml Chest Tube Drainage Total 280 ml Current Medications Medications (Trade) Dose Ordered Sig/Zelda Route PRN Reason Start Time Stop Time Status Last Admin Dose Admin Acetaminophen (Tylenol) 650 mg Q4H PRN NG Temp >100.5 07/27/20 03:45 08/26/20 03:44 07/26/20 20:25 Acetaminophen (Tylenol) 650 mg Q6H PRN NG Mild Pain (Pain Scale 1-3) 06/29/20 10:15 07/29/20 10:14 07/22/20 11:56 Calcitonin Hull (Miacalcin) 1 sprays DAILY NASAL 07/22/20 14:00 10/20/20 13:59 07/27/20 08:50 Chlorhexidine Gluconate (Inna-Hex 2%) 1 applic DAILY@2000 TOPIC 07/20/20 20:00 10/18/20 19:59 07/26/20 20:00 Dextrose (Dextrose 50%) 25 ml Q30M PRN IV Hypoglycemia 06/05/20 10:45 09/03/20 10:44 Dextrose (Dextrose 50%) 50 ml Q30M PRN IV Hypoglycemia 06/05/20 10:45 09/03/20 10:44 Dextrose/Sodium Chloride 1,000 ml @ 50 mls/hr Q20H IV 07/25/20 11:15 08/24/20 11:14 07/27/20 04:00 Docusate Sodium (Colace) 100 mg TWICE A DAY NG 07/26/20 18:00 08/25/20 17:59 07/27/20 08:50 Enoxaparin Sodium (Lovenox) 110 mg EVERY 12 HOURS SUBQ 07/17/20 21:00 10/15/20 20:59 07/27/20 08:51 Fentanyl Citrate 250 ml @ 1 mls/hr Q24H IV 07/27/20 07:45 07/29/20 07:44 07/27/20 07:45 Guaifenesin/ Codeine Phosphate (Robitussin with codeine) 5 ml Q6H PRN NG For Cough 07/14/20 14:15 08/13/20 14:14 07/18/20 21:44 Lansoprazole (Prevacid) 30 mg DAILY GT 07/18/20 09:00 08/09/20 08:59 07/27/20 08:49 Meropenem 1 gm/ Sodium Chloride 55 ml @ 110 mls/hr Q8H IVPB 07/22/20 12:00 07/29/20 11:59 07/27/20 04:00 Midazolam HCl 200 ml @ 0 mls/hr Q24H PRN IV sedation 07/22/20 14:06 07/29/20 14:05 07/27/20 07:45 Midodrine (Pro-Amatine) 10 mg Q8HR GT 06/30/20 14:00 09/12/20 13:59 07/27/20 06:00 Polyethylene Glycol (Miralax) 17 gm BEDTIME ORAL 07/26/20 21:00 08/25/20 20:59 07/26/20 21:11 Quetiapine Fumarate (SEROqueL) 50 mg Q12HR GT 07/16/20 13:30 08/30/20 13:29 07/27/20 08:49 Current Medications Medications (Trade) Dose Ordered Sig/Zelda Route PRN Reason Start Time Stop Time Status Last Admin Dose Admin Acetaminophen (Tylenol) 650 mg Q4H PRN NG Temp >100.5 07/27/20 03:45 08/26/20 03:44 07/26/20 20:25 Acetaminophen (Tylenol) 650 mg Q6H PRN NG Mild Pain (Pain Scale 1-3) 06/29/20 10:15 07/29/20 10:14 07/22/20 11:56 Calcitonin Hull (Miacalcin) 1 sprays DAILY NASAL 07/22/20 14:00 10/20/20 13:59 07/27/20 08:50 Chlorhexidine Gluconate (Inna-Hex 2%) 1 applic DAILY@2000 TOPIC 07/20/20 20:00 10/18/20 19:59 07/26/20 20:00 Dextrose (Dextrose 50%) 25 ml Q30M PRN IV Hypoglycemia 06/05/20 10:45 09/03/20 10:44 Dextrose (Dextrose 50%) 50 ml Q30M PRN IV Hypoglycemia 06/05/20 10:45 09/03/20 10:44 Dextrose/Sodium Chloride 1,000 ml @ 50 mls/hr Q20H IV 07/25/20 11:15 08/24/20 11:14 07/27/20 04:00 Docusate Sodium (Colace) 100 mg TWICE A DAY NG 07/26/20 18:00 08/25/20 17:59 07/27/20 08:50 Enoxaparin Sodium (Lovenox) 110 mg EVERY 12 HOURS SUBQ 07/17/20 21:00 10/15/20 20:59 07/27/20 08:51 Fentanyl Citrate 250 ml @ 1 mls/hr Q24H IV 07/27/20 07:45 07/29/20 07:44 07/27/20 07:45 Guaifenesin/ Codeine Phosphate (Robitussin with codeine) 5 ml Q6H PRN NG For Cough 07/14/20 14:15 08/13/20 14:14 07/18/20 21:44 Lansoprazole (Prevacid) 30 mg DAILY GT 07/18/20 09:00 08/09/20 08:59 07/27/20 08:49 Meropenem 1 gm/ Sodium Chloride 55 ml @ 110 mls/hr Q8H IVPB 07/22/20 12:00 07/29/20 11:59 07/27/20 04:00 Midazolam HCl 200 ml @ 0 mls/hr Q24H PRN IV sedation 07/22/20 14:06 07/29/20 14:05 07/27/20 07:45 Midodrine (Pro-Amatine) 10 mg Q8HR GT 06/30/20 14:00 09/12/20 13:59 07/27/20 06:00 Polyethylene Glycol (Miralax) 17 gm BEDTIME ORAL 07/26/20 21:00 08/25/20 20:59 07/26/20 21:11 Quetiapine Fumarate (SEROqueL) 50 mg Q12HR GT 07/16/20 13:30 08/30/20 13:29 07/27/20 08:49 Laboratory Tests 07/27/20 05:30: White Blood Count 10.3, Red Blood Count 3.00L, Hemoglobin 8.5L, Hematocrit 28.3L , Mean Corpuscular Volume 94, Mean Corpuscular Hemoglobin 28.4, Mean Corpuscular Hemoglobin Concent 30.1L, Red Cell Distribution Width 17.8H, Platelet Count 267, Mean Platelet Volume 7.7, Neutrophils (%) (Auto) 51.4, Lymphocytes (%) (Auto) 31.7, Monocytes (%) (Auto) 8.5, Eosinophils (%) (Auto) 7.2H, Basophils (%) (Auto) 1.2, Sodium Level 145, Potassium Level 4.5, Chloride Level 107, Carbon Dioxide Level 35H, Anion Gap 3L, Blood Urea Nitrogen 5L, Creatinine 0.5L, Estimat Glomerular Filtration Rate > 60, Glucose Level 116H, Calcium Level 8.3L, Total Bilirubin 0.6, Aspartate Amino Transf (AST/SGOT) 28, Alanine Aminotransferase (ALT/SGPT) 18, Alkaline Phosphatase 64, Total Protein 6.8, Albumin 2.4L, Globulin 4.4, Albumin/Globulin Ratio 0.5L Height (Feet): 5 Height (Inches): 5.00 Weight (Pounds): 223 General Appearance: no apparent distress EENT: other - Trach to vent Cardiovascular: tachycardia Respiratory/Chest: decreased breath sounds Abdomen: distended Rigo Tyler MD Jul 27, 2020 13:49
--- NOTE | 2020-07-27 13:50 | Cardiac Electrophysiology PN ---
Assessment/Plan Assessment/Plan 1. Respiratory failure due to COVID-19 pneumonia. On tracheostomy on 450 % Fio2. Trach exchanged 07/22/[address] Devine Echo EF 60% 2. S/P Code x2 with hypotension and sammy arrest on 07/22/20 likely due to Pneumothorax No further after chest tube. HR stable 3. Right Pneumothorax, S/P chest tube placement Removal pending less drainage 4. Hypotension, on midodrine 10 mg 3 times daily and off pressors 5. Dysphagia. S/P PEG 07/24/20 6. Right lower extremity DVT. Follow up by Hematology. May need IVC filter placement. 7. Severe anemia, S/P PRBC DW RN and Dr Devine Subjective Subjective In ICU on the Vent on 45 % Fio2 and PEEP 5 in SR. Off pressors Coded twice for hypotension and bradycardia while on the Vent about 20 minutes after tracheostomy was changed 07/22/20 Found to have Right Pneumothorax and underwent Right chest tube placement by Dr. Devine S/P PRBC. S/P PEG 07/24/20. Chest tube around 100 ccc draining Objective Last 24 Hour Vital Signs Date Time Temp Pulse Resp B/P (MAP) Pulse Ox O2 Delivery O2 Flow Rate FiO2 07/27/20 13:15 104 30 45 07/27/20 13:00 100 30 99/55 (70) 100 07/27/20 12:00 98 23 105/58 (74) 98 07/27/20 12:00 Mechanical Ventilator Mechanical Ventilator Mechanical Ventilator 07/27/20 12:00 45 07/27/20 12:00 97 07/27/20 11:00 97 23 95/58 (70) 98 07/27/20 11:00 97 18 99/60 (73) 100 07/27/20 10:48 98 31 45 07/27/20 10:00 100 23 102/61 (75) 95 07/27/20 09:05 102 25 45 07/27/20 09:00 105 23 101/63 (76) 96 07/27/20 08:00 106 07/27/20 08:00 100.0 107 42 111/65 (80) 96 07/27/20 08:00 45 07/27/20 08:00 Mechanical Ventilator Mechanical Ventilator Mechanical Ventilator 07/27/20 07:45 30 101/63 Mechanical Ventilator 45 07/27/20 07:45 30 101/63 Mechanical Ventilator 45 07/27/20 07:30 105 23 101/63 (76) 96 07/27/20 07:00 100.5 104 29 97/65 (76) 96 07/27/20 07:00 29 97/65 Mechanical Ventilator 45 07/27/20 07:00 29 97/65 Mechanical Ventilator 45 07/27/20 06:45 105 30 45 07/27/20 06:30 106 28 101/51 (68) 96 07/27/20 06:30 107 30 07/27/20 06:00 29 102/54 Mechanical Ventilator 45 07/27/20 06:00 29 102/54 Mechanical Ventilator 45 07/27/20 06:00 107 29 102/54 (70) 96 07/27/20 05:11 109 30 45 07/27/20 05:00 109 27 101/56 (71) 96 96 07/27/20 05:00 37 101/56 Mechanical Ventilator 45 07/27/20 05:00 37 101/56 Mechanical Ventilator 45 07/27/20 04:10 102.3 07/27/20 04:00 45 07/27/20 04:00 114 36 102/67 (79) 96 07/27/20 04:00 Mechanical Ventilator Mechanical Ventilator Mechanical Ventilator 07/27/20 04:00 36 102/67 Mechanical Ventilator 40 07/27/20 04:00 36 102/67 Mechanical Ventilator 45 07/27/20 04:00 114 07/27/20 03:00 35 114/71 Mechanical Ventilator 45 07/27/20 03:00 35 114/71 Mechanical Ventilator 45 07/27/20 03:00 102.3 117 35 114/71 (85) 96 07/27/20 03:00 230 35 50 07/27/20 02:00 119 65 118/75 (89) 97 07/27/20 02:00 36 118/75 Mechanical Ventilator 45 07/27/20 02:00 36 118/75 Mechanical Ventilator 45 07/27/20 01:01 122 36 50 07/27/20 01:00 122 35 115/81 (92) 95 07/27/20 01:00 35 115/81 Mechanical Ventilator 45 07/27/20 01:00 36 115/81 Mechanical Ventilator 45 07/27/20 00:00 36 124/71 Mechanical Ventilator 45 07/27/20 00:00 36 122/71 Mechanical Ventilator 45 07/27/20 00:00 Mechanical Ventilator Mechanical Ventilator Mechanical Ventilator 07/27/20 00:00 124 07/27/20 00:00 45 07/27/20 00:00 124 45 122/71 (88) 94 07/26/20 23:28 125 34 50 07/26/20 23:00 124 49 122/69 (86) 94 07/26/20 23:00 36 122/69 Mechanical Ventilator 45 07/26/20 23:00 36 122/69 Mechanical Ventilator 45 07/26/20 22:00 126 54 111/55 (73) 94 07/26/20 22:00 36 111/55 Mechanical Ventilator 45 07/26/20 22:00 36 111/55 Mechanical Ventilator 45 07/26/20 21:00 145 44 120/59 (79) 71 07/26/20 21:00 36 120/59 Mechanical Ventilator 45 07/26/20 21:00 36 120/59 Mechanical Ventilator 45 07/26/20 20:58 100.9 07/26/20 20:55 102.3 07/26/20 20:39 60 07/26/20 20:26 139 48 45 07/26/20 20:00 Mechanical Ventilator Mechanical Ventilator Mechanical Ventilator 07/26/20 20:00 36 115/53 Mechanical Ventilator 45 07/26/20 20:00 36 115/53 Mechanical Ventilator 45 07/26/20 20:00 138 07/26/20 20:00 138 62 115/53 (73) 74 07/26/20 20:00 45 07/26/20 19:15 118 48 40 07/26/20 19:00 100.9 113 32 105/59 (74) 95 07/26/20 19:00 30 105/59 Mechanical Ventilator 45 07/26/20 19:00 30 105/59 45 07/26/20 18:30 102 35 93/60 (71) 97 07/26/20 18:00 31 100/57 Mechanical Ventilator 45 07/26/20 18:00 31 100/57 Mechanical Ventilator 45 07/26/20 18:00 105 34 100/57 (71) 96 07/26/20 17:00 106 35 91/54 (66) 96 07/26/20 17:00 34 91/54 Mechanical Ventilator 45 07/26/20 17:00 34 91/54 Mechanical Ventilator 45 07/26/20 17:00 100.9 07/26/20 16:30 111 44 92 07/26/20 16:00 Mechanical Ventilator Mechanical Ventilator Mechanical Ventilator 07/26/20 16:00 104 07/26/20 16:00 36 102/63 Mechanical Ventilator 45 07/26/20 16:00 36 102/63 Mechanical Ventilator 45 07/26/20 16:00 105 35 98/60 (73) 96 07/26/20 16:00 45 07/26/20 16:00 101.6 103 32 102/63 (76) 96 07/26/20 15:30 106 36 97/67 (77) 96 07/26/20 15:00 110 40 107/64 (78) 93 07/26/20 15:00 32 107/64 Mechanical Ventilator 45 07/26/20 15:00 33 105/70 Mechanical Ventilator 45 07/26/20 14:30 107 40 100/66 (77) 96 07/26/20 14:00 29 98/68 Mechanical Ventilator 45 07/26/20 14:00 33 107/64 Mechanical Ventilator 45 07/26/20 14:00 103 37 98/68 (78) 98 07/26/20 13:52 108 32 45 Intake and Output 07/26/20 07/27/20 19:00 07:00 Intake Total 1285 ml 1140 ml Output Total 950 ml 480 ml Balance 335 ml 660 ml Free Water 85 ml 30 ml IV Total 820 ml 780 ml Tube Feeding 380 ml 330 ml Output Urine Total 670 ml 480 ml Chest Tube Drainage Total 280 ml Laboratory Tests Test 07/27/20 05:30 White Blood Count 10.3 K/UL (4.8-10.8) Red Blood Count 3.00 M/UL (4.20-5.40) L Hemoglobin 8.5 G/DL (12.0-16.0) L Hematocrit 28.3 % (37.0-47.0) L Mean Corpuscular Volume 94 FL (80-99) Mean Corpuscular Hemoglobin 28.4 PG (27.0-31.0) Mean Corpuscular Hemoglobin Concent 30.1 G/DL (32.0-36.0) L Red Cell Distribution Width 17.8 % (11.6-14.8) H Platelet Count 267 K/UL (150-450) Mean Platelet Volume 7.7 FL (6.5-10.1) Neutrophils (%) (Auto) 51.4 % (45.0-75.0) Lymphocytes (%) (Auto) 31.7 % (20.0-45.0) Monocytes (%) (Auto) 8.5 % (1.0-10.0) Eosinophils (%) (Auto) 7.2 % (0.0-3.0) H Basophils (%) (Auto) 1.2 % (0.0-2.0) Sodium Level 145 MMOL/L (136-145) Potassium Level 4.5 MMOL/L (3.5-5.1) Chloride Level 107 MMOL/L (98-107) Carbon Dioxide Level 35 MMOL/L (21-32) H Anion Gap 3 mmol/L (5-15) L Blood Urea Nitrogen 5 mg/dL (7-18) L Creatinine 0.5 MG/DL (0.55-1.30) L Estimat Glomerular Filtration Rate > 60 mL/min (>60) Glucose Level 116 MG/DL (74-106) H Calcium Level 8.3 MG/DL (8.5-10.1) L Total Bilirubin 0.6 MG/DL (0.2-1.0) Aspartate Amino Transf (AST/SGOT) 28 U/L (15-37) Alanine Aminotransferase (ALT/SGPT) 18 U/L (12-78) Alkaline Phosphatase 64 U/L (46-116) Total Protein 6.8 G/DL (6.4-8.2) Albumin 2.4 G/DL (3.4-5.0) L Globulin 4.4 g/dL Albumin/Globulin Ratio 0.5 (1.0-2.7) L Objective HEAD AND NECK: Status post tracheostomy LUNGS: Coarse rhonchi.Right chest tube is in CARDIOVASCULAR: Regular S1 and S2 with no gallop. ABDOMEN: Soft.S/P PEG EXTREMITIES: 1+ pitting edema. Hill Burger MD Jul 27, 2020 13:50
--- NOTE | 2020-07-27 14:27 | NUR ---
NURSE NOTES: Seen by Dr. Tyler with labs order in a.m.
--- NOTE | 2020-07-27 16:15 | NUR ---
NURSE NOTES: Sponge bath given. Oral care rendered. Suction by Angela V/S JUSTIN.
--- NOTE | 2020-07-27 19:38 | NUR ---
NURSE HAND-OFF REPORT: Latest Vital Signs: Temperature 99.3 , Pulse 115 , B/P 131 /82 , Respiratory Rate 31 , O2 SAT 94 , Mechanical Ventilator, O2 Flow Rate . Vital Sign Comment: wnl EKG Rhythm: Sinus Tachycardia Rhythm change?: Jesus TOLLIVER Notified?: Jesus EDWARDS MD Response: Latest Meyers Fall Score: 50 Fall Risk: High Risk Safety Measures: Call light Within Reach, Bed Alarm Zone 3, Side Rails Side Rails x2, Bed position Low and Locked. Fall Precautions: Yellow Socks Door Sign Patient Fall Education Report given to Mireille ELLINGTON.
[2020-07-27] MEDS: Dyna-Hex 2% Top Sol 2oz TOPIC SCH (20:18)
--- NOTE | 2020-07-27 21:30 | NUR ---
NURSE NOTES: Pt was febrile 100.5, cooling measures started.
[2020-07-27] MEDS: Miralax 17gm pkt ORAL SCH (21:42)
[2020-07-28] VITALS (46 sets, daily range): BP systolic 88–144; BP diastolic 52–89
--- NOTE | 2020-07-28 | NUR ---
NURSE NOTES: temp 99F, vss
[2020-07-28] MEDS: D5NS 1,000 ML IV SCH ×2 (00:45→17:25)
[2020-07-28] MEDS: Versed 100mg/NS 200ml 200 ML IV PRN ×2 (03:10→22:42)
--- NOTE | 2020-07-28 04:00 | NUR ---
NURSE NOTES: Complete bed bath with bed changed was done.
[2020-07-28] MEDS: Meropenem 1 GM in NS 55 ML IVPB SCH ×3 (04:49→19:45)
--- NOTE | 2020-07-28 06:00 | NUR ---
NURSE NOTES: Chest tube to lcs with 200ml light yellowish drainage. no resp. distress noted.
[2020-07-28] MEDS: Midodrine 10mg tab GT SCH ×3 (06:18→22:00)
--- NOTE | 2020-07-28 07:28 | NUR ---
NURSE NOTES: Report received from Nora ELLINGTON.Pt awake,noted no resp distress with trach tube to vent,ordered vent settings tolerated,no signs of pain or discomfort,S-R on the monitor,,GTF Glucerna 1.2 at 55ml/hr,no residual noted,Lennon cath draining yellow urine,skin warm and dry, ROX PICC line intact,with Fentanyl 100mcg/hr and Versed at 5mg /min and IVF D5 NS at 50 ml/hr,SR up x2 HOB elevated bed lock in lowest position will continue with plans of care.
--- NOTE | 2020-07-28 07:28 | NUR ---
NURSE HAND-OFF REPORT: Latest Vital Signs: Temperature 99.0 , Pulse 104 , B/P 110 /71 , Respiratory Rate 36 , O2 SAT 98 , Mechanical Ventilator, O2 Flow Rate . Vital Sign Comment: EKG Rhythm: Sinus Rhythm Rhythm change?: Jesus TOLLIVER Notified?: Jesus EDWARDS MD Response: Latest Meyers Fall Score: 50 Fall Risk: High Risk Safety Measures: Call light Within Reach, Bed Alarm Zone 3, Side Rails Side Rails x2, Bed position Low and Locked. Fall Precautions: Yellow Socks Door Sign Patient Fall Education Report given to .
[2020-07-28 08:07] LABS: BASOPHILS % (AUTO) 0.9 % (0.0-2.0); EOSINOPHILS % (AUTO) 9.8 % (0.0-3.0); HEMATOCRIT 28.8 % (37.0-47.0); HEMOGLOBIN 8.8 G/DL (12.0-16.0); LYMPHOCYTES % (AUTO) 27.6 % (20.0-45.0); MEAN CORPUSCULAR VOLUME 94 FL (80-99); NEUTROPHILS % (AUTO) 54.7 % (45.0-75.0); PLATELET COUNT 257 K/UL (150-450); RED BLOOD COUNT 3.05 M/UL (4.20-5.40); RED CELL DISTRIBUTION WIDTH 17.6 % (11.6-14.8); WHITE BLOOD COUNT 11.8 K/UL (4.8-10.8)
[2020-07-28 08:29] LABS: ALANINE AMINOTRANSFERASE 16 U/L (12-78); ALBUMIN 2.2 G/DL (3.4-5.0); ALBUMIN/GLOBULIN RATIO 0.5 (1.0-2.7); ALKALINE PHOSPHATASE 65 U/L (46-116); ANION GAP 3 mmol/L (5-15); ASPARTATE AMINO TRANSFERASE 21 U/L (15-37); BILIRUBIN,TOTAL 0.6 MG/DL (0.2-1.0); BLOOD UREA NITROGEN 4 mg/dL (7-18); CALCIUM 8.1 MG/DL (8.5-10.1); CARBON DIOXIDE 38 MMOL/L (21-32); CHLORIDE 104 MMOL/L (98-107); CREATININE 0.4 MG/DL (0.55-1.30); POTASSIUM 4.3 MMOL/L (3.5-5.1); SODIUM 145 MMOL/L (136-145)
[2020-07-28 08:31] LABS: PHOSPHORUS 1.9 MG/DL (2.5-4.9)
[2020-07-28] MEDS: fentaNYL 2500mcg/NS 250ml 250 ML IV SCH (09:04)
[2020-07-28] MEDS: Docusate 100mg/10ml Liq NG SCH ×2 (09:07→17:24)
[2020-07-28] MEDS: Enoxaparin 120 mg inj SUBQ SCH ×2 (09:08→19:49)
--- NOTE | 2020-07-28 09:17 | General Progress Note ---
Subjective ROS Limited/Unobtainable: No Allergies: Coded Allergies: No Known Allergies (Unverified , 05/28/20) Objective Last 24 Hour Vital Signs Date Time Temp Pulse Resp B/P (MAP) Pulse Ox O2 Delivery O2 Flow Rate FiO2 07/28/20 09:04 31 108/71 Mechanical Ventilator 45 07/28/20 09:04 31 108/71 Mechanical Ventilator 45 07/28/20 08:00 45 07/28/20 08:00 30 99/58 Mechanical Ventilator 45.0 45 07/28/20 08:00 30 99/58 Mechanical Ventilator 45 07/28/20 08:00 99.5 105 42 97/67 (77) 97 07/28/20 08:00 Mechanical Ventilator Mechanical Ventilator Mechanical Ventilator 07/28/20 07:18 106 26 45 07/28/20 07:00 112 42 120/76 (91) 90 07/28/20 07:00 21 118/77 Mechanical Ventilator 45 07/28/20 07:00 21 118/77 Mechanical Ventilator 45 07/28/20 06:00 104 36 110/71 (84) 98 07/28/20 06:00 22 97/71 Mechanical Ventilator 45 07/28/20 06:00 22 100/70 Mechanical Ventilator 45 07/28/20 05:30 110 36 138/68 (91) 98 07/28/20 05:00 36 125/59 Mechanical Ventilator 45 07/28/20 05:00 36 125/59 Mechanical Ventilator 45 07/28/20 05:00 109 43 118/71 (87) 96 07/28/20 04:00 99.0 109 31 111/71 (84) 97 07/28/20 04:00 110 07/28/20 04:00 37 112/57 Mechanical Ventilator 45 07/28/20 04:00 37 112/57 Mechanical Ventilator 45 07/28/20 04:00 45 07/28/20 04:00 Mechanical Ventilator Mechanical Ventilator Mechanical Ventilator 07/28/20 03:30 108 26 111/75 (87) 97 07/28/20 03:24 112 28 45 07/28/20 03:10 22 101/74 Mechanical Ventilator 45 07/28/20 03:00 27 122/81 Mechanical Ventilator 45 07/28/20 03:00 27 122/81 Mechanical Ventilator 45 07/28/20 03:00 109 25 101/74 (83) 92 07/28/20 02:45 106 22 114/77 (89) 100 07/28/20 02:30 110 28 116/65 (82) 94 07/28/20 02:15 109 27 127/77 (94) 91 07/28/20 02:00 24 127/77 Mechanical Ventilator 45 07/28/20 02:00 24 127/77 Mechanical Ventilator 45 07/28/20 02:00 108 27 108/70 (83) 97 07/28/20 01:15 114 38 124/76 (92) 88 07/28/20 01:00 111 26 119/81 (94) 99 07/28/20 01:00 22 124/76 Non-Rebreather 45 07/28/20 01:00 22 124/76 Mechanical Ventilator 45 07/28/20 00:30 113 27 103/75 (84) 97 07/28/20 00:00 25 110/65 Mechanical Ventilator 45 07/28/20 00:00 25 110/65 Mechanical Ventilator 100 07/28/20 00:00 113 07/28/20 00:00 99.8 115 26 121/78 (92) 99 07/28/20 00:00 Mechanical Ventilator Mechanical Ventilator Mechanical Ventilator 07/28/20 00:00 45 07/27/20 23:30 120 27 120/76 (91) 96 07/27/20 23:22 120 32 45 07/27/20 23:00 28 122/66 Mechanical Ventilator 45 07/27/20 23:00 28 122/66 Mechanical Ventilator 45 07/27/20 23:00 120 36 117/74 (88) 92 07/27/20 22:45 122 30 125/72 (89) 94 07/27/20 22:30 123 34 123/75 (91) 90 07/27/20 22:15 120 32 126/74 (91) 95 07/27/20 22:00 122 35 125/83 (97) 90 07/27/20 22:00 31 126/74 Mechanical Ventilator 45 07/27/20 22:00 31 126/74 07/27/20 21:30 100.5 121 34 124/73 (90) 88 07/27/20 21:00 119 32 126/81 (96) 91 07/27/20 21:00 115 11 132/89 (103) 95 07/27/20 21:00 29 137/90 Mechanical Ventilator 45 07/27/20 21:00 32 126/78 Mechanical Ventilator 45 07/27/20 20:30 115 11 132/89 (103) 95 07/27/20 20:00 118 07/27/20 20:00 99.0 116 28 134/87 (103) 96 07/27/20 20:00 28 135/82 Mechanical Ventilator 45 07/27/20 20:00 25 135/80 Mechanical Ventilator 45 07/27/20 20:00 45 07/27/20 20:00 Mechanical Ventilator Mechanical Ventilator Mechanical Ventilator 07/27/20 19:30 120 38 45 07/27/20 19:00 115 31 131/82 (98) 94 07/27/20 19:00 28 135/82 Mechanical Ventilator 45 07/27/20 19:00 29 137/90 Mechanical Ventilator 45 07/27/20 19:00 114 32 131/82 (98) 96 07/27/20 18:00 115 36 135/70 (91) 95 07/27/20 18:00 36 135/70 Mechanical Ventilator 45 07/27/20 18:00 36 135/70 Mechanical Ventilator 45 07/27/20 17:18 108 27 45 07/27/20 17:00 110 33 123/73 (90) 95 07/27/20 17:00 33 123/73 Mechanical Ventilator 45 07/27/20 17:00 33 123/73 Mechanical Ventilator 45 07/27/20 16:00 113 07/27/20 16:00 26 112/69 Mechanical Ventilator 45 07/27/20 16:00 26 112/69 Mechanical Ventilator 45 07/27/20 16:00 45 07/27/20 16:00 Mechanical Ventilator Mechanical Ventilator Mechanical Ventilator 07/27/20 16:00 99.3 108 26 112/69 (83) 94 07/27/20 15:00 34 116/73 Mechanical Ventilator 45 07/27/20 15:00 34 116/73 Mechanical Ventilator 45 07/27/20 15:00 108 34 116/73 (87) 90 07/27/20 14:56 112 25 45 07/27/20 14:00 103 22 119/64 (82) 93 07/27/20 14:00 22 119/64 Mechanical Ventilator 45 07/27/20 14:00 22 119/64 Mechanical Ventilator 45 07/27/20 13:15 104 30 45 07/27/20 13:00 100 30 99/55 (70) 100 07/27/20 13:00 30 99/55 Mechanical Ventilator 45 07/27/20 13:00 30 99/55 Mechanical Ventilator 45 07/27/20 12:00 98 23 105/58 (74) 98 07/27/20 12:00 Mechanical Ventilator Mechanical Ventilator Mechanical Ventilator 07/27/20 12:00 23 105/58 Mechanical Ventilator 45 07/27/20 12:00 23 105/58 Mechanical Ventilator 45 07/27/20 12:00 45 07/27/20 12:00 97 07/27/20 11:00 97 23 95/58 (70) 98 07/27/20 11:00 18 99/60 Mechanical Ventilator 45 07/27/20 11:00 18 99/60 Mechanical Ventilator 45 07/27/20 11:00 97 18 99/60 (73) 100 07/27/20 10:48 98 31 45 07/27/20 10:00 23 102/61 Mechanical Ventilator 45 07/27/20 10:00 23 102/61 Mechanical Ventilator 45 07/27/20 10:00 100 23 102/61 (75) 95 Intake and Output0 07/27/20 07/28/20 19:00 07:00 Intake Total 1630 ml 1455 ml Output Total 390 ml 1135 ml Balance 1240 ml 320 ml Free Water 350 ml 100 ml IV Total 740 ml 795 ml Tube Feeding 540 ml 560 ml Output Urine Total 390 ml 935 ml Chest Tube Drainage Total 200 ml Laboratory Tests 07/28/20 05:55: White Blood Count 11.8H, Red Blood Count 3.05L, Hemoglobin 8.8L, Hematocrit 28.8L, Mean Corpuscular Volume 94, Mean Corpuscular Hemoglobin 28.7, Mean Corpuscular Hemoglobin Concent 30.4L, Red Cell Distribution Width 17.6H, Platelet Count 257, Mean Platelet Volume 7.7, Neutrophils (%) (Auto) 54.7, Lymphocytes (%) (Auto) 27.6, Monocytes (%) (Auto) 7.0, Eosinophils (%) (Auto) 9.8H, Basophils (%) (Auto) 0.9, Sodium Level 145, Potassium Level 4.3, Chloride Level 104, Carbon Dioxide Level 38H, Anion Gap 3L, Blood Urea Nitrogen 4L, Creatinine 0.4L, Estimat Glomerular Filtration Rate > 60, Glucose Level 119H, Calcium Level 8.1L, Phosphorus Level 1.9L, Magnesium Level 1.5L, Total Bilirubin 0.6, Aspartate Amino Transf (AST/SGOT) 21, Alanine Aminotransferase (ALT/SGPT) 16, Alkaline Phosphatase 65, Total Protein 6.6, Albumin 2.2L, Globulin 4.4, Albumin/Globulin Ratio 0.5L Height (Feet): 5 Height (Inches): 5.00 Weight (Pounds): 223 General Appearance: no apparent distress EENT: normal ENT inspection Neck: supple Cardiovascular: normal rate Respiratory/Chest: decreased breath sounds Abdomen: hypoactive bowel sounds Extremities: non-tender Assessment/Plan Problem List: (1) Morbid obesity ICD Codes: E66.01 - Morbid (severe) obesity due to excess calories SNOMED: 906483081 (2) DEVENDRA (acute kidney injury) ICD Codes: N17.9 - Acute kidney failure, unspecified SNOMED: 0435722, 81446793 (3) Diabetes mellitus out of control ICD Codes: E11.65 - Type 2 diabetes mellitus with hyperglycemia SNOMED: 94703403, 430409376 (4) Pneumonia due to COVID-19 virus ICD Codes: U07.1 - COVID-19; J12.82 - Pneumonia due to coronavirus disease 2019 SNOMED: 820464483467271290 (5) Hypoxia ICD Codes: R09.02 - Hypoxemia SNOMED: 926767683 (6) Respiratory failure ICD Codes: J96.90 - Respiratory failure, unspecified, unspecified whether with hypoxia or hypercapnia SNOMED: 764413365 Status: unchanged Assessment/Plan: s/p PEG GTF colace miralax will Ryan Dubose MD Jul 28, 2020 09:17
--- NOTE | 2020-07-28 09:48 | Pulmonology Progress Note ---
Subjective ROS Limited/Unobtainable: No Interval Events: Events noted; required R CT after code. Also trach changed to 7 Constitutional: Reports: fever, other - Dv=490.3 HEENT: Repors: no symptoms Respiratory: Reports: no symptoms Cardiovascular: Reports: no symptoms Gastrointestinal/Abdominal: Reports: vomiting Genitourinary: Reports: no symptoms Allergies: Coded Allergies: No Known Allergies (Unverified , 05/28/20) All Systems: reviewed and negative except above Objective Last 24 Hour Vital Signs Date Time Temp Pulse Resp B/P (MAP) Pulse Ox O2 Delivery O2 Flow Rate FiO2 07/28/20 09:10 99 27 45 07/28/20 09:04 31 108/71 Mechanical Ventilator 45 07/28/20 09:04 31 108/71 Mechanical Ventilator 45 07/28/20 09:00 106 29 118/62 (80) 100 07/28/20 08:00 108 07/28/20 08:00 45 07/28/20 08:00 30 99/58 Mechanical Ventilator 45.0 45 07/28/20 08:00 30 99/58 Mechanical Ventilator 45 07/28/20 08:00 99.5 105 42 97/67 (77) 97 07/28/20 08:00 Mechanical Ventilator Mechanical Ventilator Mechanical Ventilator 07/28/20 07:18 106 26 45 07/28/20 07:00 112 42 120/76 (91) 90 07/28/20 07:00 21 118/77 Mechanical Ventilator 45 07/28/20 07:00 21 118/77 Mechanical Ventilator 45 07/28/20 06:00 104 36 110/71 (84) 98 07/28/20 06:00 22 97/71 Mechanical Ventilator 45 07/28/20 06:00 22 100/70 Mechanical Ventilator 45 07/28/20 05:30 110 36 138/68 (91) 98 07/28/20 05:00 36 125/59 Mechanical Ventilator 45 07/28/20 05:00 36 125/59 Mechanical Ventilator 45 07/28/20 05:00 109 43 118/71 (87) 96 07/28/20 04:00 99.0 109 31 111/71 (84) 97 07/28/20 04:00 110 07/28/20 04:00 37 112/57 Mechanical Ventilator 45 07/28/20 04:00 37 112/57 Mechanical Ventilator 45 07/28/20 04:00 45 07/28/20 04:00 Mechanical Ventilator Mechanical Ventilator Mechanical Ventilator 07/28/20 03:30 108 26 111/75 (87) 97 07/28/20 03:24 112 28 45 07/28/20 03:10 22 101/74 Mechanical Ventilator 45 07/28/20 03:00 27 122/81 Mechanical Ventilator 45 07/28/20 03:00 27 122/81 Mechanical Ventilator 45 07/28/20 03:00 109 25 101/74 (83) 92 07/28/20 02:45 106 22 114/77 (89) 100 07/28/20 02:30 110 28 116/65 (82) 94 07/28/20 02:15 109 27 127/77 (94) 91 07/28/20 02:00 24 127/77 Mechanical Ventilator 45 07/28/20 02:00 24 127/77 Mechanical Ventilator 45 07/28/20 02:00 108 27 108/70 (83) 97 07/28/20 01:15 114 38 124/76 (92) 88 07/28/20 01:00 111 26 119/81 (94) 99 07/28/20 01:00 22 124/76 Non-Rebreather 45 07/28/20 01:00 22 124/76 Mechanical Ventilator 45 07/28/20 00:30 113 27 103/75 (84) 97 07/28/20 00:00 25 110/65 Mechanical Ventilator 45 07/28/20 00:00 25 110/65 Mechanical Ventilator 100 07/28/20 00:00 113 07/28/20 00:00 99.8 115 26 121/78 (92) 99 07/28/20 00:00 Mechanical Ventilator Mechanical Ventilator Mechanical Ventilator 07/28/20 00:00 45 07/27/20 23:30 120 27 120/76 (91) 96 07/27/20 23:22 120 32 45 07/27/20 23:00 28 122/66 Mechanical Ventilator 45 07/27/20 23:00 28 122/66 Mechanical Ventilator 45 07/27/20 23:00 120 36 117/74 (88) 92 07/27/20 22:45 122 30 125/72 (89) 94 07/27/20 22:30 123 34 123/75 (91) 90 07/27/20 22:15 120 32 126/74 (91) 95 07/27/20 22:00 122 35 125/83 (97) 90 07/27/20 22:00 31 126/74 Mechanical Ventilator 45 07/27/20 22:00 31 126/74 07/27/20 21:30 100.5 121 34 124/73 (90) 88 07/27/20 21:00 119 32 126/81 (96) 91 07/27/20 21:00 115 11 132/89 (103) 95 07/27/20 21:00 29 137/90 Mechanical Ventilator 45 07/27/20 21:00 32 126/78 Mechanical Ventilator 45 07/27/20 20:30 115 11 132/89 (103) 95 07/27/20 20:00 118 07/27/20 20:00 99.0 116 28 134/87 (103) 96 07/27/20 20:00 28 135/82 Mechanical Ventilator 45 07/27/20 20:00 25 135/80 Mechanical Ventilator 45 07/27/20 20:00 45 07/27/20 20:00 Mechanical Ventilator Mechanical Ventilator Mechanical Ventilator 07/27/20 19:30 120 38 45 07/27/20 19:00 115 31 131/82 (98) 94 07/27/20 19:00 28 135/82 Mechanical Ventilator 45 07/27/20 19:00 29 137/90 Mechanical Ventilator 45 07/27/20 19:00 114 32 131/82 (98) 96 07/27/20 18:00 115 36 135/70 (91) 95 07/27/20 18:00 36 135/70 Mechanical Ventilator 45 07/27/20 18:00 36 135/70 Mechanical Ventilator 45 07/27/20 17:18 108 27 45 07/27/20 17:00 110 33 123/73 (90) 95 07/27/20 17:00 33 123/73 Mechanical Ventilator 45 07/27/20 17:00 33 123/73 Mechanical Ventilator 45 07/27/20 16:00 113 07/27/20 16:00 26 112/69 Mechanical Ventilator 45 07/27/20 16:00 26 112/69 Mechanical Ventilator 45 07/27/20 16:00 45 07/27/20 16:00 Mechanical Ventilator Mechanical Ventilator Mechanical Ventilator 07/27/20 16:00 99.3 108 26 112/69 (83) 94 07/27/20 15:00 34 116/73 Mechanical Ventilator 45 07/27/20 15:00 34 116/73 Mechanical Ventilator 45 07/27/20 15:00 108 34 116/73 (87) 90 07/27/20 14:56 112 25 45 07/27/20 14:00 103 22 119/64 (82) 93 07/27/20 14:00 22 119/64 Mechanical Ventilator 45 07/27/20 14:00 22 119/64 Mechanical Ventilator 45 07/27/20 13:15 104 30 45 07/27/20 13:00 100 30 99/55 (70) 100 07/27/20 13:00 30 99/55 Mechanical Ventilator 45 07/27/20 13:00 30 99/55 Mechanical Ventilator 45 07/27/20 12:00 98 23 105/58 (74) 98 07/27/20 12:00 Mechanical Ventilator Mechanical Ventilator Mechanical Ventilator 07/27/20 12:00 23 105/58 Mechanical Ventilator 45 07/27/20 12:00 23 105/58 Mechanical Ventilator 45 07/27/20 12:00 45 07/27/20 12:00 97 07/27/20 11:00 97 23 95/58 (70) 98 07/27/20 11:00 18 99/60 Mechanical Ventilator 45 07/27/20 11:00 18 99/60 Mechanical Ventilator 45 07/27/20 11:00 97 18 99/60 (73) 100 07/27/20 10:48 98 31 45 07/27/20 10:00 23 102/61 Mechanical Ventilator 45 07/27/20 10:00 23 102/61 Mechanical Ventilator 45 07/27/20 10:00 100 23 102/61 (75) 95 Intake and Output 07/27/20 07/28/20 19:00 07:00 Intake Total 1630 ml 1455 ml Output Total 390 ml 1135 ml Balance 1240 ml 320 ml Free Water 350 ml 100 ml IV Total 740 ml 795 ml Tube Feeding 540 ml 560 ml Output Urine Total 390 ml 935 ml Chest Tube Drainage Total 200 ml General Appearance: no acute distress HEENT: normocephalic, status post trach Respiratory: chest wall non-tender Cardiovascular: normal peripheral pulses Abdomen: normal bowel sounds, other - s/p PEG Laboratory Tests 07/28/20 05:55: White Blood Count 11.8H, Red Blood Count 3.05L, Hemoglobin 8.8L, Hematocrit 28.8L, Mean Corpuscular Volume 94, Mean Corpuscular Hemoglobin 28.7, Mean Corpuscular Hemoglobin Concent 30.4L, Red Cell Distribution Width 17.6H, Platelet Count 257, Mean Platelet Volume 7.7, Neutrophils (%) (Auto) 54.7, Lymphocytes (%) (Auto) 27.6, Monocytes (%) (Auto) 7.0, Eosinophils (%) (Auto) 9.8H, Basophils (%) (Auto) 0.9, Sodium Level 145, Potassium Level 4.3, Chloride Level 104, Carbon Dioxide Level 38H, Anion Gap 3L, Blood Urea Nitrogen 4L, Creatinine 0.4L, Estimat Glomerular Filtration Rate > 60, Glucose Level 119H, Calcium Level 8.1L, Phosphorus Level 1.9L, Magnesium Level 1.5L, Total Bilirubin 0.6, Aspartate Amino Transf (AST/SGOT) 21, Alanine Aminotransferase (ALT/SGPT) 16, Alkaline Phosphatase 65, Total Protein 6.6, Albumin 2.2L, Globulin 4.4, Albumin/Globulin Ratio 0.5L Current Medications Medications (Trade) Dose Ordered Sig/Zelda Route PRN Reason Start Time Stop Time Status Last Admin Dose Admin Acetaminophen (Tylenol) 650 mg Q4H PRN NG Temp >100.5 07/27/20 03:45 08/26/20 03:44 07/26/20 20:25 Acetaminophen (Tylenol) 650 mg Q6H PRN NG Mild Pain (Pain Scale 1-3) 06/29/20 10:15 07/29/20 10:14 07/22/20 11:56 Calcitonin Manson (Miacalcin) 1 sprays DAILY NASAL 07/22/20 14:00 10/20/20 13:59 07/27/20 08:50 Chlorhexidine Gluconate (Inna-Hex 2%) 1 applic DAILY@2000 TOPIC 07/20/20 20:00 10/18/20 19:59 07/27/20 20:18 Dextrose (Dextrose 50%) 25 ml Q30M PRN IV Hypoglycemia 06/05/20 10:45 09/03/20 10:44 Dextrose (Dextrose 50%) 50 ml Q30M PRN IV Hypoglycemia 06/05/20 10:45 09/03/20 10:44 Dextrose/Sodium Chloride 1,000 ml @ 50 mls/hr Q20H IV 07/25/20 11:15 08/24/20 11:14 07/28/20 00:45 Docusate Sodium (Colace) 100 mg TWICE A DAY NG 07/26/20 18:00 08/25/20 17:59 07/28/20 09:07 Enoxaparin Sodium (Lovenox) 110 mg EVERY 12 HOURS SUBQ 07/17/20 21:00 10/15/20 20:59 07/28/20 09:08 Fentanyl Citrate 250 ml @ 1 mls/hr Q24H IV 07/27/20 07:45 07/29/20 07:44 07/28/20 09:04 Guaifenesin/ Codeine Phosphate (Robitussin with codeine) 5 ml Q6H PRN NG For Cough 07/14/20 14:15 08/13/20 14:14 07/18/20 21:44 Lansoprazole (Prevacid) 30 mg DAILY GT 07/18/20 09:00 08/09/20 08:59 07/28/20 09:07 Meropenem 1 gm/ Sodium Chloride 55 ml @ 110 mls/hr Q8H IVPB 07/22/20 12:00 07/29/20 11:59 07/28/20 04:49 Midazolam HCl 200 ml @ 0 mls/hr Q24H PRN IV sedation 07/22/20 14:06 07/29/20 14:05 07/28/20 03:10 Midodrine (Pro-Amatine) 10 mg Q8HR GT 06/30/20 14:00 09/12/20 13:59 07/28/20 06:18 Polyethylene Glycol (Miralax) 17 gm BEDTIME ORAL 07/26/20 21:00 08/25/20 20:59 07/27/20 21:42 Quetiapine Fumarate (SEROqueL) 50 mg Q12HR GT 07/16/20 13:30 08/30/20 13:29 07/28/20 09:07 Assessment/Plan Assessment/Plan 1. COVID-19 pneumonia -Intubated 05/28/20 - We will continue broad-spectrum antibiotics. -s/p solumedrol, Rocephin -Continue PEEP 6 ->7 ->5 - Peak airway pressures better - FiO2 100% -> 90 ->80->60 ->40 ->80 ->100 ->70 ->60 -> 50 ->45 ->40 ->50 ->40%; PEEP 7 ->5 - s/p PEG 2. Hyponatremia -Per primary MD 3. Elevated inflammatory markers - has high D dimer; On Lovenox -> Lovenox held given anemia 4. DVT of the right calf - once stable, consider IVC filter per heme vs oral DOAC - was on Lovenox but held given anemia 5. Decreased PEEP S/p trach Reported cuff leak per RN/RT Changed 07/22/20 however still has cuff leak On low dose Levophed; will attempt to wean off Will wean off IV sedation; started Seroquel s/p PEG Required R CT due to PTX 07/22/20 - removal pending less drainage per surgery Javier Nava MD Jul 28, 2020 09:48
--- NOTE | 2020-07-28 09:53 | General Progress Note ---
Subjective Constitutional: Reports: weakness Allergies: Coded Allergies: No Known Allergies (Unverified , 05/28/20) All Systems: reviewed and negative except above Subjective trach vent in icu Objective Last 24 Hour Vital Signs Date Time Temp Pulse Resp B/P (MAP) Pulse Ox O2 Delivery O2 Flow Rate FiO2 07/28/20 09:10 99 27 45 07/28/20 09:04 31 108/71 Mechanical Ventilator 45 07/28/20 09:04 31 108/71 Mechanical Ventilator 45 07/28/20 09:00 106 29 118/62 (80) 100 07/28/20 08:00 108 07/28/20 08:00 45 07/28/20 08:00 30 99/58 Mechanical Ventilator 45.0 45 07/28/20 08:00 30 99/58 Mechanical Ventilator 45 07/28/20 08:00 99.5 105 42 97/67 (77) 97 07/28/20 08:00 Mechanical Ventilator Mechanical Ventilator Mechanical Ventilator 07/28/20 07:18 106 26 45 07/28/20 07:00 112 42 120/76 (91) 90 07/28/20 07:00 21 118/77 Mechanical Ventilator 45 07/28/20 07:00 21 118/77 Mechanical Ventilator 45 07/28/20 06:00 104 36 110/71 (84) 98 07/28/20 06:00 22 97/71 Mechanical Ventilator 45 07/28/20 06:00 22 100/70 Mechanical Ventilator 45 07/28/20 05:30 110 36 138/68 (91) 98 07/28/20 05:00 36 125/59 Mechanical Ventilator 45 07/28/20 05:00 36 125/59 Mechanical Ventilator 45 07/28/20 05:00 109 43 118/71 (87) 96 07/28/20 04:00 99.0 109 31 111/71 (84) 97 07/28/20 04:00 110 07/28/20 04:00 37 112/57 Mechanical Ventilator 45 07/28/20 04:00 37 112/57 Mechanical Ventilator 45 07/28/20 04:00 45 07/28/20 04:00 Mechanical Ventilator Mechanical Ventilator Mechanical Ventilator 07/28/20 03:30 108 26 111/75 (87) 97 07/28/20 03:24 112 28 45 07/28/20 03:10 22 101/74 Mechanical Ventilator 45 07/28/20 03:00 27 122/81 Mechanical Ventilator 45 07/28/20 03:00 27 122/81 Mechanical Ventilator 45 07/28/20 03:00 109 25 101/74 (83) 92 07/28/20 02:45 106 22 114/77 (89) 100 07/28/20 02:30 110 28 116/65 (82) 94 07/28/20 02:15 109 27 127/77 (94) 91 07/28/20 02:00 24 127/77 Mechanical Ventilator 45 07/28/20 02:00 24 127/77 Mechanical Ventilator 45 07/28/20 02:00 108 27 108/70 (83) 97 07/28/20 01:15 114 38 124/76 (92) 88 07/28/20 01:00 111 26 119/81 (94) 99 07/28/20 01:00 22 124/76 Non-Rebreather 45 07/28/20 01:00 22 124/76 Mechanical Ventilator 45 07/28/20 00:30 113 27 103/75 (84) 97 07/28/20 00:00 25 110/65 Mechanical Ventilator 45 07/28/20 00:00 25 110/65 Mechanical Ventilator 100 07/28/20 00:00 113 07/28/20 00:00 99.8 115 26 121/78 (92) 99 07/28/20 00:00 Mechanical Ventilator Mechanical Ventilator Mechanical Ventilator 07/28/20 00:00 45 07/27/20 23:30 120 27 120/76 (91) 96 07/27/20 23:22 120 32 45 07/27/20 23:00 28 122/66 Mechanical Ventilator 45 07/27/20 23:00 28 122/66 Mechanical Ventilator 45 07/27/20 23:00 120 36 117/74 (88) 92 07/27/20 22:45 122 30 125/72 (89) 94 07/27/20 22:30 123 34 123/75 (91) 90 07/27/20 22:15 120 32 126/74 (91) 95 07/27/20 22:00 122 35 125/83 (97) 90 07/27/20 22:00 31 126/74 Mechanical Ventilator 45 07/27/20 22:00 31 126/74 07/27/20 21:30 100.5 121 34 124/73 (90) 88 07/27/20 21:00 119 32 126/81 (96) 91 07/27/20 21:00 115 11 132/89 (103) 95 07/27/20 21:00 29 137/90 Mechanical Ventilator 45 07/27/20 21:00 32 126/78 Mechanical Ventilator 45 07/27/20 20:30 115 11 132/89 (103) 95 07/27/20 20:00 118 07/27/20 20:00 99.0 116 28 134/87 (103) 96 07/27/20 20:00 28 135/82 Mechanical Ventilator 45 07/27/20 20:00 25 135/80 Mechanical Ventilator 45 07/27/20 20:00 45 07/27/20 20:00 Mechanical Ventilator Mechanical Ventilator Mechanical Ventilator 07/27/20 19:30 120 38 45 07/27/20 19:00 115 31 131/82 (98) 94 07/27/20 19:00 28 135/82 Mechanical Ventilator 45 07/27/20 19:00 29 137/90 Mechanical Ventilator 45 07/27/20 19:00 114 32 131/82 (98) 96 07/27/20 18:00 115 36 135/70 (91) 95 07/27/20 18:00 36 135/70 Mechanical Ventilator 45 07/27/20 18:00 36 135/70 Mechanical Ventilator 45 07/27/20 17:18 108 27 45 07/27/20 17:00 110 33 123/73 (90) 95 07/27/20 17:00 33 123/73 Mechanical Ventilator 45 07/27/20 17:00 33 123/73 Mechanical Ventilator 45 07/27/20 16:00 113 07/27/20 16:00 26 112/69 Mechanical Ventilator 45 07/27/20 16:00 26 112/69 Mechanical Ventilator 45 07/27/20 16:00 45 07/27/20 16:00 Mechanical Ventilator Mechanical Ventilator Mechanical Ventilator 07/27/20 16:00 99.3 108 26 112/69 (83) 94 07/27/20 15:00 34 116/73 Mechanical Ventilator 45 07/27/20 15:00 34 116/73 Mechanical Ventilator 45 07/27/20 15:00 108 34 116/73 (87) 90 07/27/20 14:56 112 25 45 07/27/20 14:00 103 22 119/64 (82) 93 07/27/20 14:00 22 119/64 Mechanical Ventilator 45 07/27/20 14:00 22 119/64 Mechanical Ventilator 45 07/27/20 13:15 104 30 45 07/27/20 13:00 100 30 99/55 (70) 100 07/27/20 13:00 30 99/55 Mechanical Ventilator 45 07/27/20 13:00 30 99/55 Mechanical Ventilator 45 07/27/20 12:00 98 23 105/58 (74) 98 07/27/20 12:00 Mechanical Ventilator Mechanical Ventilator Mechanical Ventilator 07/27/20 12:00 23 105/58 Mechanical Ventilator 45 07/27/20 12:00 23 105/58 Mechanical Ventilator 45 07/27/20 12:00 45 07/27/20 12:00 97 07/27/20 11:00 97 23 95/58 (70) 98 07/27/20 11:00 18 99/60 Mechanical Ventilator 45 07/27/20 11:00 18 99/60 Mechanical Ventilator 45 07/27/20 11:00 97 18 99/60 (73) 100 07/27/20 10:48 98 31 45 07/27/20 10:00 23 102/61 Mechanical Ventilator 45 07/27/20 10:00 23 102/61 Mechanical Ventilator 45 07/27/20 10:00 100 23 102/61 (75) 95 Intake and Output 07/27/20 07/28/20 19:00 07:00 Intake Total 1630 ml 1455 ml Output Total 390 ml 1135 ml Balance 1240 ml 320 ml Free Water 350 ml 100 ml IV Total 740 ml 795 ml Tube Feeding 540 ml 560 ml Output Urine Total 390 ml 935 ml Chest Tube Drainage Total 200 ml Laboratory Tests 07/28/20 05:55: White Blood Count 11.8H, Red Blood Count 3.05L, Hemoglobin 8.8L, Hematocrit 28.8L, Mean Corpuscular Volume 94, Mean Corpuscular Hemoglobin 28.7, Mean Corpuscular Hemoglobin Concent 30.4L, Red Cell Distribution Width 17.6H, Platelet Count 257, Mean Platelet Volume 7.7, Neutrophils (%) (Auto) 54.7, Lymphocytes (%) (Auto) 27.6, Monocytes (%) (Auto) 7.0, Eosinophils (%) (Auto) 9.8H, Basophils (%) (Auto) 0.9, Sodium Level 145, Potassium Level 4.3, Chloride Level 104, Carbon Dioxide Level 38H, Anion Gap 3L, Blood Urea Nitrogen 4L, Creatinine 0.4L, Estimat Glomerular Filtration Rate > 60, Glucose Level 119H, Calcium Level 8.1L, Phosphorus Level 1.9L, Magnesium Level 1.5L, Total Bilirubin 0.6, Aspartate Amino Transf (AST/SGOT) 21, Alanine Aminotransferase (ALT/SGPT) 16, Alkaline Phosphatase 65, Total Protein 6.6, Albumin 2.2L, Globulin 4.4, Albumin/Globulin Ratio 0.5L Height (Feet): 5 Height (Inches): 5.00 Weight (Pounds): 223 General Appearance: lethargic EENT: normal ENT inspection Neck: normal alignment Cardiovascular: normal peripheral pulses, normal rate, regular rhythm Respiratory/Chest: chest wall non-tender, lungs clear, normal breath sounds Abdomen: normal bowel sounds, non tender, soft Extremities: normal inspection Edema: no edema noted Arm (L), no edema noted Arm (R), no edema noted Leg (L), no edema noted Leg (R), no edema noted Pedal (L), no edema noted Pedal (R), no edema noted Generalized Skin: normal pigmentation, warm/dry Assessment/Plan Problem List: (1) Hypoxia ICD Codes: R09.02 - Hypoxemia SNOMED: 757450493 (2) Respiratory failure ICD Codes: J96.90 - Respiratory failure, unspecified, unspecified whether with hypoxia or hypercapnia SNOMED: 405832829 (3) Respiratory distress ICD Codes: R06.03 - Acute respiratory distress; J12.82 - Pneumonia due to coronavirus disease 2019 SNOMED: 613635848 (4) Pneumonia due to COVID-19 virus ICD Codes: U07.1 - COVID-19; J12.82 - Pneumonia due to coronavirus disease 2019 SNOMED: 206417327422032573 Status: unchanged Assessment/Plan: vent abx id pulm f/u cbc bmp am ltach Tank Cheng DO Jul 28, 2020 09:53
--- NOTE | 2020-07-28 10:00 | NUR ---
NURSE NOTES: Oral care done,Oral/tracheal secretions suctioned PRN to thick mott secretions.
--- NOTE | 2020-07-28 10:12 | Infectious Diseases Prog Note ---
Assessment/Plan Assessment/Plan antibiotics : meropenem A 1. covid 19 pneumonia s/p remdesivir s/p solumedrol 2. respiratory failure s/p tracheostomy 3. pseudomonas pneumonia 4. leucocytosis improving 5. SBO 6, pneumothorax s/p CT placement P 1. continue meropenem 3 more days 2. will follow up cultures Subjective ROS Limited/Unobtainable: Yes Allergies: Coded Allergies: No Known Allergies (Unverified , 05/28/20) Objective Last 24 Hour Vital Signs Date Time Temp Pulse Resp B/P (MAP) Pulse Ox O2 Delivery O2 Flow Rate FiO2 07/28/20 09:10 99 27 45 07/28/20 09:04 31 108/71 Mechanical Ventilator 45 07/28/20 09:04 31 108/71 Mechanical Ventilator 45 07/28/20 09:00 106 29 118/62 (80) 100 07/28/20 08:00 108 07/28/20 08:00 45 07/28/20 08:00 30 99/58 Mechanical Ventilator 45.0 45 07/28/20 08:00 30 99/58 Mechanical Ventilator 45 07/28/20 08:00 99.5 105 42 97/67 (77) 97 07/28/20 08:00 Mechanical Ventilator Mechanical Ventilator Mechanical Ventilator 07/28/20 07:18 106 26 45 07/28/20 07:00 112 42 120/76 (91) 90 07/28/20 07:00 21 118/77 Mechanical Ventilator 45 07/28/20 07:00 21 118/77 Mechanical Ventilator 45 07/28/20 06:00 104 36 110/71 (84) 98 07/28/20 06:00 22 97/71 Mechanical Ventilator 45 07/28/20 06:00 22 100/70 Mechanical Ventilator 45 07/28/20 05:30 110 36 138/68 (91) 98 07/28/20 05:00 36 125/59 Mechanical Ventilator 45 07/28/20 05:00 36 125/59 Mechanical Ventilator 45 07/28/20 05:00 109 43 118/71 (87) 96 07/28/20 04:00 99.0 109 31 111/71 (84) 97 07/28/20 04:00 110 07/28/20 04:00 37 112/57 Mechanical Ventilator 45 07/28/20 04:00 37 112/57 Mechanical Ventilator 45 07/28/20 04:00 45 07/28/20 04:00 Mechanical Ventilator Mechanical Ventilator Mechanical Ventilator 07/28/20 03:30 108 26 111/75 (87) 97 07/28/20 03:24 112 28 45 07/28/20 03:10 22 101/74 Mechanical Ventilator 45 07/28/20 03:00 27 122/81 Mechanical Ventilator 45 07/28/20 03:00 27 122/81 Mechanical Ventilator 45 07/28/20 03:00 109 25 101/74 (83) 92 07/28/20 02:45 106 22 114/77 (89) 100 07/28/20 02:30 110 28 116/65 (82) 94 07/28/20 02:15 109 27 127/77 (94) 91 07/28/20 02:00 24 127/77 Mechanical Ventilator 45 07/28/20 02:00 24 127/77 Mechanical Ventilator 45 07/28/20 02:00 108 27 108/70 (83) 97 07/28/20 01:15 114 38 124/76 (92) 88 07/28/20 01:00 111 26 119/81 (94) 99 07/28/20 01:00 22 124/76 Non-Rebreather 45 07/28/20 01:00 22 124/76 Mechanical Ventilator 45 07/28/20 00:30 113 27 103/75 (84) 97 07/28/20 00:00 25 110/65 Mechanical Ventilator 45 07/28/20 00:00 25 110/65 Mechanical Ventilator 100 07/28/20 00:00 113 07/28/20 00:00 99.8 115 26 121/78 (92) 99 07/28/20 00:00 Mechanical Ventilator Mechanical Ventilator Mechanical Ventilator 07/28/20 00:00 45 07/27/20 23:30 120 27 120/76 (91) 96 07/27/20 23:22 120 32 45 07/27/20 23:00 28 122/66 Mechanical Ventilator 45 07/27/20 23:00 28 122/66 Mechanical Ventilator 45 07/27/20 23:00 120 36 117/74 (88) 92 07/27/20 22:45 122 30 125/72 (89) 94 07/27/20 22:30 123 34 123/75 (91) 90 07/27/20 22:15 120 32 126/74 (91) 95 07/27/20 22:00 122 35 125/83 (97) 90 07/27/20 22:00 31 126/74 Mechanical Ventilator 45 07/27/20 22:00 31 126/74 07/27/20 21:30 100.5 121 34 124/73 (90) 88 07/27/20 21:00 119 32 126/81 (96) 91 07/27/20 21:00 115 11 132/89 (103) 95 07/27/20 21:00 29 137/90 Mechanical Ventilator 45 07/27/20 21:00 32 126/78 Mechanical Ventilator 45 07/27/20 20:30 115 11 132/89 (103) 95 07/27/20 20:00 118 07/27/20 20:00 99.0 116 28 134/87 (103) 96 07/27/20 20:00 28 135/82 Mechanical Ventilator 45 07/27/20 20:00 25 135/80 Mechanical Ventilator 45 07/27/20 20:00 45 07/27/20 20:00 Mechanical Ventilator Mechanical Ventilator Mechanical Ventilator 07/27/20 19:30 120 38 45 07/27/20 19:00 115 31 131/82 (98) 94 07/27/20 19:00 28 135/82 Mechanical Ventilator 45 07/27/20 19:00 29 137/90 Mechanical Ventilator 45 07/27/20 19:00 114 32 131/82 (98) 96 07/27/20 18:00 115 36 135/70 (91) 95 07/27/20 18:00 36 135/70 Mechanical Ventilator 45 07/27/20 18:00 36 135/70 Mechanical Ventilator 45 07/27/20 17:18 108 27 45 07/27/20 17:00 110 33 123/73 (90) 95 07/27/20 17:00 33 123/73 Mechanical Ventilator 45 07/27/20 17:00 33 123/73 Mechanical Ventilator 45 07/27/20 16:00 113 07/27/20 16:00 26 112/69 Mechanical Ventilator 45 07/27/20 16:00 26 112/69 Mechanical Ventilator 45 07/27/20 16:00 45 07/27/20 16:00 Mechanical Ventilator Mechanical Ventilator Mechanical Ventilator 07/27/20 16:00 99.3 108 26 112/69 (83) 94 07/27/20 15:00 34 116/73 Mechanical Ventilator 45 07/27/20 15:00 34 116/73 Mechanical Ventilator 45 07/27/20 15:00 108 34 116/73 (87) 90 07/27/20 14:56 112 25 45 07/27/20 14:00 103 22 119/64 (82) 93 07/27/20 14:00 22 119/64 Mechanical Ventilator 45 07/27/20 14:00 22 119/64 Mechanical Ventilator 45 07/27/20 13:15 104 30 45 07/27/20 13:00 100 30 99/55 (70) 100 07/27/20 13:00 30 99/55 Mechanical Ventilator 45 07/27/20 13:00 30 99/55 Mechanical Ventilator 45 07/27/20 12:00 98 23 105/58 (74) 98 07/27/20 12:00 Mechanical Ventilator Mechanical Ventilator Mechanical Ventilator 07/27/20 12:00 23 105/58 Mechanical Ventilator 45 07/27/20 12:00 23 105/58 Mechanical Ventilator 45 07/27/20 12:00 45 07/27/20 12:00 97 07/27/20 11:00 97 23 95/58 (70) 98 07/27/20 11:00 18 99/60 Mechanical Ventilator 45 07/27/20 11:00 18 99/60 Mechanical Ventilator 45 07/27/20 11:00 97 18 99/60 (73) 100 07/27/20 10:48 98 31 45 Height (Feet): 5 Height (Inches): 5.00 Weight (Pounds): 223 HEENT: status post trach Respiratory/Chest: lungs clear Cardiovascular: normal rate, regular rhythm, no gallop/murmur Abdomen: soft, non tender Extremities: no edema Laboratory Tests Test 07/28/20 05:55 White Blood Count 11.8 K/UL (4.8-10.8) H Red Blood Count 3.05 M/UL (4.20-5.40) L Hemoglobin 8.8 G/DL (12.0-16.0) L Hematocrit 28.8 % (37.0-47.0) L Mean Corpuscular Volume 94 FL (80-99) Mean Corpuscular Hemoglobin 28.7 PG (27.0-31.0) Mean Corpuscular Hemoglobin Concent 30.4 G/DL (32.0-36.0) L Red Cell Distribution Width 17.6 % (11.6-14.8) H Platelet Count 257 K/UL (150-450) Mean Platelet Volume 7.7 FL (6.5-10.1) Neutrophils (%) (Auto) 54.7 % (45.0-75.0) Lymphocytes (%) (Auto) 27.6 % (20.0-45.0) Monocytes (%) (Auto) 7.0 % (1.0-10.0) Eosinophils (%) (Auto) 9.8 % (0.0-3.0) H Basophils (%) (Auto) 0.9 % (0.0-2.0) Sodium Level 145 MMOL/L (136-145) Potassium Level 4.3 MMOL/L (3.5-5.1) Chloride Level 104 MMOL/L (98-107) Carbon Dioxide Level 38 MMOL/L (21-32) H Anion Gap 3 mmol/L (5-15) L Blood Urea Nitrogen 4 mg/dL (7-18) L Creatinine 0.4 MG/DL (0.55-1.30) L Estimat Glomerular Filtration Rate > 60 mL/min (>60) Glucose Level 119 MG/DL (74-106) H Calcium Level 8.1 MG/DL (8.5-10.1) L Phosphorus Level 1.9 MG/DL (2.5-4.9) L Magnesium Level 1.5 MG/DL (1.8-2.4) L Total Bilirubin 0.6 MG/DL (0.2-1.0) Aspartate Amino Transf (AST/SGOT) 21 U/L (15-37) Alanine Aminotransferase (ALT/SGPT) 16 U/L (12-78) Alkaline Phosphatase 65 U/L (46-116) Total Protein 6.6 G/DL (6.4-8.2) Albumin 2.2 G/DL (3.4-5.0) L Globulin 4.4 g/dL Albumin/Globulin Ratio 0.5 (1.0-2.7) L Current Medications Medications (Trade) Dose Ordered Sig/Zelda Route PRN Reason Start Time Stop Time Status Last Admin Dose Admin Acetaminophen (Tylenol) 650 mg Q4H PRN NG Temp >100.5 07/27/20 03:45 08/26/20 03:44 3/5/21 20:25 Acetaminophen (Tylenol) 650 mg Q6H PRN NG Mild Pain (Pain Scale 1-3) 06/29/20 10:15 07/29/20 10:14 07/22/20 11:56 Calcitonin [place] (Miacalcin) 1 sprays DAILY NASAL 07/22/20 14:00 10/20/20 13:59 07/27/20 08:50 Chlorhexidine Gluconate (Inna-Hex 2%) 1 applic DAILY@2000 TOPIC 07/20/20 20:00 10/18/20 19:59 07/27/20 20:18 Dextrose (Dextrose 50%) 25 ml Q30M PRN IV Hypoglycemia 06/05/20 10:45 09/03/20 10:44 Dextrose (Dextrose 50%) 50 ml Q30M PRN IV Hypoglycemia 06/05/20 10:45 09/03/20 10:44 Dextrose/Sodium Chloride 1,000 ml @ 50 mls/hr Q20H IV 07/25/20 11:15 08/24/20 11:14 07/28/20 00:45 Docusate Sodium (Colace) 100 mg TWICE A DAY NG 07/26/20 18:00 08/25/20 17:59 07/28/20 09:07 Enoxaparin Sodium (Lovenox) 110 mg EVERY 12 HOURS SUBQ 07/17/20 21:00 10/15/20 20:59 07/28/20 09:08 Fentanyl Citrate 250 ml @ 1 mls/hr Q24H IV 07/27/20 07:45 07/29/20 07:44 07/28/20 09:04 Guaifenesin/ Codeine Phosphate (Robitussin with codeine) 5 ml Q6H PRN NG For Cough 07/14/20 14:15 08/13/20 14:14 07/18/20 21:44 Lansoprazole (Prevacid) 30 mg DAILY GT 07/18/20 09:00 08/09/20 08:59 07/28/20 09:07 Meropenem 1 gm/ Sodium Chloride 55 ml @ 110 mls/hr Q8H IVPB 07/22/20 12:00 07/29/20 11:59 07/28/20 04:49 Midazolam HCl 200 ml @ 0 mls/hr Q24H PRN IV sedation 07/22/20 14:06 07/29/20 14:05 07/28/20 03:10 Midodrine (Pro-Amatine) 10 mg Q8HR GT 06/30/20 14:00 09/12/20 13:59 07/28/20 06:18 Polyethylene Glycol (Miralax) 17 gm BEDTIME ORAL 07/26/20 21:00 08/25/20 20:59 07/27/20 21:42 Quetiapine Fumarate (SEROqueL) 50 mg Q12HR GT 07/16/20 13:30 08/30/20 13:29 07/28/20 09:07 Fili Mcelroy MD Jul 28, 2020 10:12
--- NOTE | 2020-07-28 10:19 | Hematology/Onc Progress Note ---
Assessment/Plan Assessment/Plan # Thrombocytopenia is due to infection/underlying covid19+++ --> improving, ABX ceftriaxone -->zosyn --> on steriods likely cause of initial wbc --> per pulm --> plt 107->156-->192-->205--> 257 --> smear reviewed # Anemia due to chronic disease --> hgb goal is >7 --> transfuse prn --> ferritin is >1000 --> hold off on iron --> 10-->9.8->9-->8-->8.2-->9.4-->8.1--> 8.8 # Elevated ddimer due to covid19++ --> duplex legs is negative --> underlying covid rx # Hypoxia -> due to covid19 # Hypoxemia --> rx same as above # Respiratory failure --> on vent --> per pulm # Pneumonia due to COVID-19 virus --> per pulm rx -> sp remdesivir # Diabetes mellitus out of control --> hgb a1c goal <7 # Poor prognosis # Dvt ppx lovenox sq Appreciate consultation and dw RN Subjective Allergies: Coded Allergies: No Known Allergies (Unverified , 05/28/20) Subjective Subjective 07/27: no events. 07/28: remains intubated on vent Objective Objective Current Medications Medications (Trade) Dose Ordered Sig/Zelda Route PRN Reason Start Time Stop Time Status Last Admin Dose Admin Acetaminophen (Tylenol) 650 mg Q4H PRN NG Temp >100.5 07/27/20 03:45 08/26/20 03:44 07/26/20 20:25 Acetaminophen (Tylenol) 650 mg Q6H PRN NG Mild Pain (Pain Scale 1-3) 06/29/20 10:15 07/29/20 10:14 07/22/20 11:56 Calcitonin [place] (Miacalcin) 1 sprays DAILY NASAL 07/22/20 14:00 10/20/20 13:59 07/27/20 08:50 Chlorhexidine Gluconate (Inna-Hex 2%) 1 applic DAILY@1999 TOPIC 07/20/20 20:00 10/18/20 19:59 07/27/20 20:18 Dextrose (Dextrose 50%) 25 ml Q30M PRN IV Hypoglycemia 06/05/20 10:45 09/03/20 10:44 Dextrose (Dextrose 50%) 50 ml Q30M PRN IV Hypoglycemia 06/05/20 10:45 09/03/20 10:44 Dextrose/Sodium Chloride 1,000 ml @ 50 mls/hr Q20H IV 07/25/20 11:15 08/24/20 11:14 07/28/20 00:45 Docusate Sodium (Colace) 100 mg TWICE A DAY NG 07/26/20 18:00 08/25/20 17:59 07/28/20 09:07 Enoxaparin Sodium (Lovenox) 110 mg EVERY 12 HOURS SUBQ 07/17/20 21:00 10/15/20 20:59 07/28/20 09:08 Fentanyl Citrate 250 ml @ 1 mls/hr Q24H IV 07/27/20 07:45 07/29/20 07:44 07/28/20 09:04 Guaifenesin/ Codeine Phosphate (Robitussin with codeine) 5 ml Q6H PRN NG For Cough 07/14/20 14:15 08/13/20 14:14 07/18/20 21:44 Lansoprazole (Prevacid) 30 mg DAILY GT 07/18/20 09:00 08/09/20 08:59 07/28/20 09:07 Meropenem 1 gm/ Sodium Chloride 55 ml @ 110 mls/hr Q8H IVPB 07/22/20 12:00 07/29/20 11:59 07/28/20 04:49 Midazolam HCl 200 ml @ 0 mls/hr Q24H PRN IV sedation 07/22/20 14:06 07/29/20 14:05 07/28/20 03:10 Midodrine (Pro-Amatine) 10 mg Q8HR GT 06/30/20 14:00 09/12/20 13:59 07/28/20 06:18 Polyethylene Glycol (Miralax) 17 gm BEDTIME ORAL 07/26/20 21:00 08/25/20 20:59 07/27/20 21:42 Quetiapine Fumarate (SEROqueL) 50 mg Q12HR GT 07/16/20 13:30 08/30/20 13:29 07/28/20 09:07 Last 24 Hour Vital Signs Date Time Temp Pulse Resp B/P (MAP) Pulse Ox O2 Delivery O2 Flow Rate FiO2 07/28/20 09:10 99 27 45 07/28/20 09:04 31 108/71 Mechanical Ventilator 45 07/28/20 09:04 31 108/71 Mechanical Ventilator 45 07/28/20 09:00 106 29 118/62 (80) 100 07/28/20 08:00 108 07/28/20 08:00 45 07/28/20 08:00 30 99/58 Mechanical Ventilator 45.0 45 07/28/20 08:00 30 99/58 Mechanical Ventilator 45 07/28/20 08:00 99.5 105 42 97/67 (77) 97 07/28/20 08:00 Mechanical Ventilator Mechanical Ventilator Mechanical Ventilator 07/28/20 07:18 106 26 45 07/28/20 07:00 112 42 120/76 (91) 90 07/28/20 07:00 21 118/77 Mechanical Ventilator 45 07/28/20 07:00 21 118/77 Mechanical Ventilator 45 07/28/20 06:00 104 36 110/71 (84) 98 07/28/20 06:00 22 97/71 Mechanical Ventilator 45 07/28/20 06:00 22 100/70 Mechanical Ventilator 45 07/28/20 05:30 110 36 138/68 (91) 98 07/28/20 05:00 36 125/59 Mechanical Ventilator 45 07/28/20 05:00 36 125/59 Mechanical Ventilator 45 07/28/20 05:00 109 43 118/71 (87) 96 07/28/20 04:00 99.0 109 31 111/71 (84) 97 07/28/20 04:00 110 07/28/20 04:00 37 112/57 Mechanical Ventilator 45 07/28/20 04:00 37 112/57 Mechanical Ventilator 45 07/28/20 04:00 45 07/28/20 04:00 Mechanical Ventilator Mechanical Ventilator Mechanical Ventilator 07/28/20 03:30 108 26 111/75 (87) 97 07/28/20 03:24 112 28 45 07/28/20 03:10 22 101/74 Mechanical Ventilator 45 07/28/20 03:00 27 122/81 Mechanical Ventilator 45 07/28/20 03:00 27 122/81 Mechanical Ventilator 45 07/28/20 03:00 109 25 101/74 (83) 92 07/28/20 02:45 106 22 114/77 (89) 100 07/28/20 02:30 110 28 116/65 (82) 94 07/28/20 02:15 109 27 127/77 (94) 91 07/28/20 02:00 24 127/77 Mechanical Ventilator 45 07/28/20 02:00 24 127/77 Mechanical Ventilator 45 07/28/20 02:00 108 27 108/70 (83) 97 07/28/20 01:15 114 38 124/76 (92) 88 07/28/20 01:00 111 26 119/81 (94) 99 07/28/20 01:00 22 124/76 Non-Rebreather 45 07/28/20 01:00 22 124/76 Mechanical Ventilator 45 07/28/20 00:30 113 27 103/75 (84) 97 07/28/20 00:00 25 110/65 Mechanical Ventilator 45 07/28/20 00:00 25 110/65 Mechanical Ventilator 100 07/28/20 00:00 113 07/28/20 00:00 99.8 115 26 121/78 (92) 99 07/28/20 00:00 Mechanical Ventilator Mechanical Ventilator Mechanical Ventilator 07/28/20 00:00 45 07/27/20 23:30 120 27 120/76 (91) 96 07/27/20 23:22 120 32 45 07/27/20 23:00 28 122/66 Mechanical Ventilator 45 07/27/20 23:00 28 122/66 Mechanical Ventilator 45 07/27/20 23:00 120 36 117/74 (88) 92 07/27/20 22:45 122 30 125/72 (89) 94 07/27/20 22:30 123 34 123/75 (91) 90 07/27/20 22:15 120 32 126/74 (91) 95 07/27/20 22:00 122 35 125/83 (97) 90 07/27/20 22:00 31 126/74 Mechanical Ventilator 45 07/27/20 22:00 31 126/74 07/27/20 21:30 100.5 121 34 124/73 (90) 88 07/27/20 21:00 119 32 126/81 (96) 91 07/27/20 21:00 115 11 132/89 (103) 95 07/27/20 21:00 29 137/90 Mechanical Ventilator 45 07/27/20 21:00 32 126/78 Mechanical Ventilator 45 07/27/20 20:30 115 11 132/89 (103) 95 07/27/20 20:00 118 07/27/20 20:00 99.0 116 28 134/87 (103) 96 07/27/20 20:00 28 135/82 Mechanical Ventilator 45 07/27/20 20:00 25 135/80 Mechanical Ventilator 45 07/27/20 20:00 45 07/27/20 20:00 Mechanical Ventilator Mechanical Ventilator Mechanical Ventilator 07/27/20 19:30 120 38 45 07/27/20 19:00 115 31 131/82 (98) 94 07/27/20 19:00 28 135/82 Mechanical Ventilator 45 07/27/20 19:00 29 137/90 Mechanical Ventilator 45 07/27/20 19:00 114 32 131/82 (98) 96 07/27/20 18:00 115 36 135/70 (91) 95 07/27/20 18:00 36 135/70 Mechanical Ventilator 45 07/27/20 18:00 36 135/70 Mechanical Ventilator 45 07/27/20 17:18 108 27 45 07/27/20 17:00 110 33 123/73 (90) 95 07/27/20 17:00 33 123/73 Mechanical Ventilator 45 07/27/20 17:00 33 123/73 Mechanical Ventilator 45 07/27/20 16:00 113 07/27/20 16:00 26 112/69 Mechanical Ventilator 45 07/27/20 16:00 26 112/69 Mechanical Ventilator 45 07/27/20 16:00 45 07/27/20 16:00 Mechanical Ventilator Mechanical Ventilator Mechanical Ventilator 07/27/20 16:00 99.3 108 26 112/69 (83) 94 07/27/20 15:00 34 116/73 Mechanical Ventilator 45 07/27/20 15:00 34 116/73 Mechanical Ventilator 45 07/27/20 15:00 108 34 116/73 (87) 90 07/27/20 14:56 112 25 45 07/27/20 14:00 103 22 119/64 (82) 93 07/27/20 14:00 22 119/64 Mechanical Ventilator 45 07/27/20 14:00 22 119/64 Mechanical Ventilator 45 07/27/20 13:15 104 30 45 07/27/20 13:00 100 30 99/55 (70) 100 07/27/20 13:00 30 99/55 Mechanical Ventilator 45 07/27/20 13:00 30 99/55 Mechanical Ventilator 45 07/27/20 12:00 98 23 105/58 (74) 98 07/27/20 12:00 Mechanical Ventilator Mechanical Ventilator Mechanical Ventilator 07/27/20 12:00 23 105/58 Mechanical Ventilator 45 07/27/20 12:00 23 105/58 Mechanical Ventilator 45 07/27/20 12:00 45 07/27/20 12:00 97 07/27/20 11:00 97 23 95/58 (70) 98 07/27/20 11:00 18 99/60 Mechanical Ventilator 45 07/27/20 11:00 18 99/60 Mechanical Ventilator 45 07/27/20 11:00 97 18 99/60 (73) 100 07/27/20 10:48 98 31 45 07/27/20 10:00 23 102/61 Mechanical Ventilator 45 07/27/20 10:00 23 102/61 Mechanical Ventilator 45 07/27/20 10:00 100 23 102/61 (75) 95 07/27/20 09:05 102 25 45 07/27/20 09:00 105 23 101/63 (76) 96 07/27/20 09:00 23 101/63 Mechanical Ventilator 45 07/27/20 09:00 23 101/63 Mechanical Ventilator 45 07/27/20 08:00 106 07/27/20 08:00 100.0 107 42 111/65 (80) 96 07/27/20 08:00 42 111/65 Mechanical Ventilator 45 07/27/20 08:00 42 111/65 Mechanical Ventilator 45 07/27/20 08:00 45 07/27/20 08:00 Mechanical Ventilator Mechanical Ventilator Mechanical Ventilator 07/27/20 07:45 30 101/63 Mechanical Ventilator 45 07/27/20 07:45 30 101/63 Mechanical Ventilator 45 07/27/20 07:30 105 23 101/63 (76) 96 07/27/20 07:00 100.5 104 29 97/65 (76) 96 07/27/20 07:00 29 97/65 Mechanical Ventilator 45 07/27/20 07:00 29 97/65 Mechanical Ventilator 45 07/27/20 06:45 105 30 45 07/27/20 06:30 106 28 101/51 (68) 96 07/27/20 06:30 107 30 07/27/20 06:00 29 102/54 Mechanical Ventilator 45 07/27/20 06:00 29 102/54 Mechanical Ventilator 45 07/27/20 06:00 107 29 102/54 (70) 96 07/27/20 05:11 109 30 45 07/27/20 05:00 109 27 101/56 (71) 96 96 07/27/20 05:00 37 101/56 Mechanical Ventilator 45 07/27/20 05:00 37 101/56 Mechanical Ventilator 45 07/27/20 04:10 102.3 07/27/20 04:00 45 07/27/20 04:00 114 36 102/67 (79) 96 07/27/20 04:00 Mechanical Ventilator Mechanical Ventilator Mechanical Ventilator 07/27/20 04:00 36 102/67 Mechanical Ventilator 40 07/27/20 04:00 36 102/67 Mechanical Ventilator 45 07/27/20 04:00 114 07/27/20 03:00 35 114/71 Mechanical Ventilator 45 07/27/20 03:00 35 114/71 Mechanical Ventilator 45 07/27/20 03:00 102.3 117 35 114/71 (85) 96 07/27/20 03:00 230 35 50 07/27/20 02:00 119 65 118/75 (89) 97 07/27/20 02:00 36 118/75 Mechanical Ventilator 45 07/27/20 02:00 36 118/75 Mechanical Ventilator 45 07/27/20 01:01 122 36 50 07/27/20 01:00 122 35 115/81 (92) 95 07/27/20 01:00 35 115/81 Mechanical Ventilator 45 07/27/20 01:00 36 115/81 Mechanical Ventilator 45 07/27/20 00:00 36 124/71 Mechanical Ventilator 45 07/27/20 00:00 36 122/71 Mechanical Ventilator 45 07/27/20 00:00 Mechanical Ventilator Mechanical Ventilator Mechanical Ventilator 07/27/20 00:00 124 07/27/20 00:00 45 07/27/20 00:00 124 45 122/71 (88) 94 07/26/20 23:28 125 34 50 07/26/20 23:00 124 49 122/69 (86) 94 07/26/20 23:00 36 122/69 Mechanical Ventilator 45 07/26/20 23:00 36 122/69 Mechanical Ventilator 45 07/26/20 22:00 126 54 111/55 (73) 94 07/26/20 22:00 36 111/55 Mechanical Ventilator 45 07/26/20 22:00 36 111/55 Mechanical Ventilator 45 07/26/20 21:00 145 44 120/59 (79) 71 07/26/20 21:00 36 120/59 Mechanical Ventilator 45 07/26/20 21:00 36 120/59 Mechanical Ventilator 45 07/26/20 20:58 100.9 07/26/20 20:55 102.3 07/26/20 20:39 60 07/26/20 20:26 139 48 45 07/26/20 20:00 Mechanical Ventilator Mechanical Ventilator Mechanical Ventilator 07/26/20 20:00 36 115/53 Mechanical Ventilator 45 07/26/20 20:00 36 115/53 Mechanical Ventilator 45 07/26/20 20:00 138 07/26/20 20:00 138 62 115/53 (73) 74 07/26/20 20:00 45 07/26/20 19:15 118 48 40 07/26/20 19:00 100.9 113 32 105/59 (74) 95 07/26/20 19:00 30 105/59 Mechanical Ventilator 45 07/26/20 19:00 30 105/59 45 07/26/20 18:30 102 35 93/60 (71) 97 07/26/20 18:00 31 100/57 Mechanical Ventilator 45 07/26/20 18:00 31 100/57 Mechanical Ventilator 45 07/26/20 18:00 105 34 100/57 (71) 96 07/26/20 17:00 106 35 91/54 (66) 96 07/26/20 17:00 34 91/54 Mechanical Ventilator 45 07/26/20 17:00 34 91/54 Mechanical Ventilator 45 07/26/20 17:00 100.9 07/26/20 16:30 111 44 92 07/26/20 16:00 Mechanical Ventilator Mechanical Ventilator Mechanical Ventilator 07/26/20 16:00 104 07/26/20 16:00 36 102/63 Mechanical Ventilator 45 07/26/20 16:00 36 102/63 Mechanical Ventilator 45 07/26/20 16:00 105 35 98/60 (73) 96 07/26/20 16:00 45 07/26/20 16:00 101.6 103 32 102/63 (76) 96 07/26/20 15:30 106 36 97/67 (77) 96 07/26/20 15:00 110 40 107/64 (78) 93 07/26/20 15:00 32 107/64 Mechanical Ventilator 45 07/26/20 15:00 33 105/70 Mechanical Ventilator 45 07/26/20 14:30 107 40 100/66 (77) 96 07/26/20 14:00 29 98/68 Mechanical Ventilator 45 07/26/20 14:00 33 107/64 Mechanical Ventilator 45 07/26/20 14:00 103 37 98/68 (78) 98 07/26/20 13:52 108 32 45 07/26/20 13:30 102 33 96/61 (73) 97 07/26/20 13:00 101 32 96/58 (71) 97 07/26/20 13:00 30 96/58 Mechanical Ventilator 45 07/26/20 13:00 29 96/58 Non-Rebreather 45 07/26/20 12:30 101 27 94/62 (73) 97 07/26/20 12:00 99.6 101 29 98/60 (73) 98 07/26/20 12:00 28 98/60 Mechanical Ventilator 45 07/26/20 12:00 29 98/60 Mechanical Ventilator 45 07/26/20 12:00 45 07/26/20 12:00 Mechanical Ventilator Mechanical Ventilator Mechanical Ventilator 07/26/20 12:00 100 07/26/20 11:30 102 32 98/62 (74) 97 07/26/20 11:00 23 97/63 Mechanical Ventilator 45 07/26/20 11:00 23 97/63 Mechanical Ventilator 45 07/26/20 11:00 102 33 97/63 (74) 97 07/26/20 10:30 107 32 97/63 (74) 96 Intake and Output 07/27/20 07/28/20 19:00 07:00 Intake Total 1630 ml 1455 ml Output Total 390 ml 1135 ml Balance 1240 ml 320 ml Free Water 350 ml 100 ml IV Total 740 ml 795 ml Tube Feeding 540 ml 560 ml Output Urine Total 390 ml 935 ml Chest Tube Drainage Total 200 ml Labs Test 07/26/20 03:40 07/27/20 05:30 07/28/20 05:55 White Blood Count 8.8 K/UL (4.8-10.8) 10.3 K/UL (4.8-10.8) 11.8 K/UL (4.8-10.8) Red Blood Count 2.60 M/UL (4.20-5.40) 3.00 M/UL (4.20-5.40) 3.05 M/UL (4.20-5.40) Hemoglobin 7.5 G/DL (12.0-16.0) 8.5 G/DL (12.0-16.0) 8.8 G/DL (12.0-16.0) Hematocrit 23.9 % (37.0-47.0) 28.3 % (37.0-47.0) 28.8 % (37.0-47.0) Mean Corpuscular Volume 92 FL (80-99) 94 FL (80-99) 94 FL (80-99) Mean Corpuscular Hemoglobin 28.8 PG (27.0-31.0) 28.4 PG (27.0-31.0) 28.7 PG (27.0-31.0) Mean Corpuscular Hemoglobin Concent 31.3 G/DL (32.0-36.0) 30.1 G/DL (32.0-36.0) 30.4 G/DL (32.0-36.0) Red Cell Distribution Width 17.0 % (11.6-14.8) 17.8 % (11.6-14.8) 17.6 % (11.6-14.8) Platelet Count 232 K/UL (150-450) 267 K/UL (150-450) 257 K/UL (150-450) Mean Platelet Volume 7.2 FL (6.5-10.1) 7.7 FL (6.5-10.1) 7.7 FL (6.5-10.1) Neutrophils (%) (Auto) % (45.0-75.0) 51.4 % (45.0-75.0) 54.7 % (45.0-75.0) Lymphocytes (%) (Auto) % (20.0-45.0) 31.7 % (20.0-45.0) 27.6 % (20.0-45.0) Monocytes (%) (Auto) % (1.0-10.0) 8.5 % (1.0-10.0) 7.0 % (1.0-10.0) Eosinophils (%) (Auto) % (0.0-3.0) 7.2 % (0.0-3.0) 9.8 % (0.0-3.0) Basophils (%) (Auto) % (0.0-2.0) 1.2 % (0.0-2.0) 0.9 % (0.0-2.0) Sodium Level 143 MMOL/L (136-145) 145 MMOL/L (136-145) 145 MMOL/L (136-145) Potassium Level 3.7 MMOL/L (3.5-5.1) 4.5 MMOL/L (3.5-5.1) 4.3 MMOL/L (3.5-5.1) Chloride Level 104 MMOL/L (98-107) 107 MMOL/L (98-107) 104 MMOL/L (98-107) Carbon Dioxide Level 33 MMOL/L (21-32) 35 MMOL/L (21-32) 38 MMOL/L (21-32) Anion Gap 6 mmol/L (5-15) 3 mmol/L (5-15) 3 mmol/L (5-15) Blood Urea Nitrogen 4 mg/dL (7-18) 5 mg/dL (7-18) 4 mg/dL (7-18) Creatinine 0.4 MG/DL (0.55-1.30) 0.5 MG/DL (0.55-1.30) 0.4 MG/DL (0.55-1.30) Estimat Glomerular Filtration Rate > 60 mL/min (>60) > 60 mL/min (>60) > 60 mL/min (>60) Glucose Level 99 MG/DL (74-106) 116 MG/DL (74-106) 119 MG/DL (74-106) Calcium Level 8.1 MG/DL (8.5-10.1) 8.3 MG/DL (8.5-10.1) 8.1 MG/DL (8.5-10.1) Phosphorus Level 2.2 MG/DL (2.5-4.9) 1.9 MG/DL (2.5-4.9) Magnesium Level 1.8 MG/DL (1.8-2.4) 1.5 MG/DL (1.8-2.4) Total Bilirubin 0.4 MG/DL (0.2-1.0) 0.6 MG/DL (0.2-1.0) 0.6 MG/DL (0.2-1.0) Aspartate Amino Transf (AST/SGOT) 28 U/L (15-37) 28 U/L (15-37) 21 U/L (15-37) Alanine Aminotransferase (ALT/SGPT) 18 U/L (12-78) 18 U/L (12-78) 16 U/L (12-78) Alkaline Phosphatase 63 U/L (46-116) 64 U/L (46-116) 65 U/L (46-116) C-Reactive Protein, Quantitative 12.4 mg/dL (0.00-0.90) Pro-B-Type Natriuretic Peptide 322 pg/mL (0-125) Total Protein 6.1 G/DL (6.4-8.2) 6.8 G/DL (6.4-8.2) 6.6 G/DL (6.4-8.2) Albumin 2.3 G/DL (3.4-5.0) 2.4 G/DL (3.4-5.0) 2.2 G/DL (3.4-5.0) Globulin 3.8 g/dL 4.4 g/dL 4.4 g/dL Albumin/Globulin Ratio 0.6 (1.0-2.7) 0.5 (1.0-2.7) 0.5 (1.0-2.7) Height (Feet): 5 Height (Inches): 5.00 Weight (Pounds): 223 Objective Objective GeNL: nv Pulm: vent++ CV: rrr Abd: soft, nt, nd Ext: no cce Lanny Valle NP Jul 28, 2020 10:19
--- NOTE | 2020-07-28 10:37 | NUR ---
RD ASSESSMENT & RECOMMENDATIONS SEE CARE ACTIVITY FOR COMPLETE ASSESSMENT DAILY ESTIMATED NEEDS: Needs based on Critical care, obesity 11-14kcal/kg actual body wt (140kg) kcals/kg 9173-3772 total kcals 1.5-2.0g prot/kg IBW (64.5kg) g protein/kg 96-129 g total protein 25-30ml/kg abw (83kg) mL/kg 9796-6246 total fluid mLs NUTRITION DIAGNOSIS: Swallowing difficulty R/T respiratory failure as evidenced by pt now s/p trach placement (07/04), NGT to LIS now dc'ed, s/p PEG placement, remains NPO. CURRENT TF:Glucerna 1.2 goal of 55ml/hr ENTERAL NUTRITION RECOMMENDATIONS: Glucerna 1.2 @ 55ml/hr x 24 hrs + Prosource 1pkt BID to provide 1320ml, 1584kcal, 79g+22g prot, 1063ml free water * As medically appropriate, initiate Glucerna 1.2 @ 25ml/hr x 6hrs * Advance 10ml q 4-6 hrs as tolerated to goal rate. * Add Prosource 1pkt BID (additional 22g prot) to meet protein needs * HOB over 30 degrees/ water flush per MD * Feed @goal w/ hemodynamic stability ADDITIONAL RECOMMENDATIONS: * Calibrated bedscale wt * Monitor Propofol rate, need for TF adjustment-> now off * Monitor BGs closely : now improved, on NISS only * Monitor NPO status- TF held since 07/20, now s/p PEG placement NGT to LIS dc'ed, initiate GT feeds in a timely manner if medically appropriate * Monitor hemodynamic stability: NE held at this time
--- NOTE | 2020-07-28 11:05 | Surgery Progress Note ---
Surgery Progress Note Subjective Procedure Performed right tube chest tube insertion Symptoms: improved Objective Last 24 Hour Vital Signs Date Time Temp Pulse Resp B/P (MAP) Pulse Ox O2 Delivery O2 Flow Rate FiO2 07/28/20 10:00 104 29 88/64 (72) 100 07/28/20 09:10 99 27 45 07/28/20 09:04 31 108/71 Mechanical Ventilator 45 07/28/20 09:04 31 108/71 Mechanical Ventilator 45 07/28/20 09:00 106 29 118/62 (80) 100 07/28/20 08:00 108 07/28/20 08:00 45 07/28/20 08:00 30 99/58 Mechanical Ventilator 45.0 45 07/28/20 08:00 30 99/58 Mechanical Ventilator 45 07/28/20 08:00 99.5 105 42 97/67 (77) 97 07/28/20 08:00 Mechanical Ventilator Mechanical Ventilator Mechanical Ventilator 07/28/20 07:18 106 26 45 07/28/20 07:00 112 42 120/76 (91) 90 07/28/20 07:00 21 118/77 Mechanical Ventilator 45 07/28/20 07:00 21 118/77 Mechanical Ventilator 45 07/28/20 06:00 104 36 110/71 (84) 98 07/28/20 06:00 22 97/71 Mechanical Ventilator 45 07/28/20 06:00 22 100/70 Mechanical Ventilator 45 07/28/20 05:30 110 36 138/68 (91) 98 07/28/20 05:00 36 125/59 Mechanical Ventilator 45 07/28/20 05:00 36 125/59 Mechanical Ventilator 45 07/28/20 05:00 109 43 118/71 (87) 96 07/28/20 04:00 99.0 109 31 111/71 (84) 97 07/28/20 04:00 110 07/28/20 04:00 37 112/57 Mechanical Ventilator 45 07/28/20 04:00 37 112/57 Mechanical Ventilator 45 07/28/20 04:00 45 07/28/20 04:00 Mechanical Ventilator Mechanical Ventilator Mechanical Ventilator 07/28/20 03:30 108 26 111/75 (87) 97 07/28/20 03:24 112 28 45 07/28/20 03:10 22 101/74 Mechanical Ventilator 45 07/28/20 03:00 27 122/81 Mechanical Ventilator 45 07/28/20 03:00 27 122/81 Mechanical Ventilator 45 07/28/20 03:00 109 25 101/74 (83) 92 07/28/20 02:45 106 22 114/77 (89) 100 07/28/20 02:30 110 28 116/65 (82) 94 07/28/20 02:15 109 27 127/77 (94) 91 07/28/20 02:00 24 127/77 Mechanical Ventilator 45 07/28/20 02:00 24 127/77 Mechanical Ventilator 45 07/28/20 02:00 108 27 108/70 (83) 97 07/28/20 01:15 114 38 124/76 (92) 88 07/28/20 01:00 111 26 119/81 (94) 99 07/28/20 01:00 22 124/76 Non-Rebreather 45 07/28/20 01:00 22 124/76 Mechanical Ventilator 45 07/28/20 00:30 113 27 103/75 (84) 97 07/28/20 00:00 25 110/65 Mechanical Ventilator 45 07/28/20 00:00 25 110/65 Mechanical Ventilator 100 07/28/20 00:00 113 07/28/20 00:00 99.8 115 26 121/78 (92) 99 07/28/20 00:00 Mechanical Ventilator Mechanical Ventilator Mechanical Ventilator 07/28/20 00:00 45 07/27/20 23:30 120 27 120/76 (91) 96 07/27/20 23:22 120 32 45 07/27/20 23:00 28 122/66 Mechanical Ventilator 45 07/27/20 23:00 28 122/66 Mechanical Ventilator 45 07/27/20 23:00 120 36 117/74 (88) 92 07/27/20 22:45 122 30 125/72 (89) 94 07/27/20 22:30 123 34 123/75 (91) 90 07/27/20 22:15 120 32 126/74 (91) 95 07/27/20 22:00 122 35 125/83 (97) 90 07/27/20 22:00 31 126/74 Mechanical Ventilator 45 07/27/20 22:00 31 126/74 07/27/20 21:30 100.5 121 34 124/73 (90) 88 07/27/20 21:00 119 32 126/81 (96) 91 07/27/20 21:00 115 11 132/89 (103) 95 07/27/20 21:00 29 137/90 Mechanical Ventilator 45 07/27/20 21:00 32 126/78 Mechanical Ventilator 45 07/27/20 20:30 115 11 132/89 (103) 95 07/27/20 20:00 118 07/27/20 20:00 99.0 116 28 134/87 (103) 96 07/27/20 20:00 28 135/82 Mechanical Ventilator 45 07/27/20 20:00 25 135/80 Mechanical Ventilator 45 07/27/20 20:00 45 07/27/20 20:00 Mechanical Ventilator Mechanical Ventilator Mechanical Ventilator 07/27/20 19:30 120 38 45 07/27/20 19:00 115 31 131/82 (98) 94 07/27/20 19:00 28 135/82 Mechanical Ventilator 45 07/27/20 19:00 29 137/90 Mechanical Ventilator 45 07/27/20 19:00 114 32 131/82 (98) 96 07/27/20 18:00 115 36 135/70 (91) 95 07/27/20 18:00 36 135/70 Mechanical Ventilator 45 07/27/20 18:00 36 135/70 Mechanical Ventilator 45 07/27/20 17:18 108 27 45 07/27/20 17:00 110 33 123/73 (90) 95 07/27/20 17:00 33 123/73 Mechanical Ventilator 45 07/27/20 17:00 33 123/73 Mechanical Ventilator 45 07/27/20 16:00 113 07/27/20 16:00 26 112/69 Mechanical Ventilator 45 07/27/20 16:00 26 112/69 Mechanical Ventilator 45 07/27/20 16:00 45 07/27/20 16:00 Mechanical Ventilator Mechanical Ventilator Mechanical Ventilator 07/27/20 16:00 99.3 108 26 112/69 (83) 94 07/27/20 15:00 34 116/73 Mechanical Ventilator 45 07/27/20 15:00 34 116/73 Mechanical Ventilator 45 07/27/20 15:00 108 34 116/73 (87) 90 07/27/20 14:56 112 25 45 07/27/20 14:00 103 22 119/64 (82) 93 07/27/20 14:00 22 119/64 Mechanical Ventilator 45 07/27/20 14:00 22 119/64 Mechanical Ventilator 45 07/27/20 13:15 104 30 45 07/27/20 13:00 100 30 99/55 (70) 100 07/27/20 13:00 30 99/55 Mechanical Ventilator 45 07/27/20 13:00 30 99/55 Mechanical Ventilator 45 07/27/20 12:00 98 23 105/58 (74) 98 07/27/20 12:00 Mechanical Ventilator Mechanical Ventilator Mechanical Ventilator 07/27/20 12:00 23 105/58 Mechanical Ventilator 45 07/27/20 12:00 23 105/58 Mechanical Ventilator 45 07/27/20 12:00 45 07/27/20 12:00 97 I&O Intake and Output 07/27/20 07/28/20 19:00 07:00 Intake Total 1630 ml 1455 ml Output Total 390 ml 1135 ml Balance 1240 ml 320 ml Free Water 350 ml 100 ml IV Total 740 ml 795 ml Tube Feeding 540 ml 560 ml Output Urine Total 390 ml 935 ml Chest Tube Drainage Total 200 ml Dressing: saturated Drains: other Cardiovascular: RSR Respiratory: decreased breath sounds Abdomen: soft, non-tender Extremities: no tenderness, no cyanosis Laboratory Tests Test 07/28/20 05:55 White Blood Count 11.8 K/UL (4.8-10.8) H Red Blood Count 3.05 M/UL (4.20-5.40) L Hemoglobin 8.8 G/DL (12.0-16.0) L Hematocrit 28.8 % (37.0-47.0) L Mean Corpuscular Volume 94 FL (80-99) Mean Corpuscular Hemoglobin 28.7 PG (27.0-31.0) Mean Corpuscular Hemoglobin Concent 30.4 G/DL (32.0-36.0) L Red Cell Distribution Width 17.6 % (11.6-14.8) H Platelet Count 257 K/UL (150-450) Mean Platelet Volume 7.7 FL (6.5-10.1) Neutrophils (%) (Auto) 54.7 % (45.0-75.0) Lymphocytes (%) (Auto) 27.6 % (20.0-45.0) Monocytes (%) (Auto) 7.0 % (1.0-10.0) Eosinophils (%) (Auto) 9.8 % (0.0-3.0) H Basophils (%) (Auto) 0.9 % (0.0-2.0) Sodium Level 145 MMOL/L (136-145) Potassium Level 4.3 MMOL/L (3.5-5.1) Chloride Level 104 MMOL/L (98-107) Carbon Dioxide Level 38 MMOL/L (21-32) H Anion Gap 3 mmol/L (5-15) L Blood Urea Nitrogen 4 mg/dL (7-18) L Creatinine 0.4 MG/DL (0.55-1.30) L Estimat Glomerular Filtration Rate > 60 mL/min (>60) Glucose Level 119 MG/DL (74-106) H Calcium Level 8.1 MG/DL (8.5-10.1) L Phosphorus Level 1.9 MG/DL (2.5-4.9) L Magnesium Level 1.5 MG/DL (1.8-2.4) L Total Bilirubin 0.6 MG/DL (0.2-1.0) Aspartate Amino Transf (AST/SGOT) 21 U/L (15-37) Alanine Aminotransferase (ALT/SGPT) 16 U/L (12-78) Alkaline Phosphatase 65 U/L (46-116) Total Protein 6.6 G/DL (6.4-8.2) Albumin 2.2 G/DL (3.4-5.0) L Globulin 4.4 g/dL Albumin/Globulin Ratio 0.5 (1.0-2.7) L Plan Problems: (1) Respiratory distress (2) Respiratory failure Assessment & Plan: 50-year-old female Covid positive respiratory insufficiency intubated on ventilatory support declining. Leukocytosis increase oxygen requirement. Vent settings per pulmonology reviewed identified and agree. Unfortunately further surgical invention at this time is not appropriate as patient is not a candidate and her current condition. Prognosis overall guarded. Tracheostomy can be considered in the future if recovering or shows improvement and requires unable to be weaned from ventilator support. Currently okay for nutritional optimization with NG tube. Will need significant monitoring for decubitus formation given patient's size and condition. Okay for air mattress tolerated. Turn every 2 hours as tolerated. Patient is otherwise critically ill and blood pressure labile. Will need to monitor closely.Bilateral infiltrates are again demonstrated. Stable tube and line positions. will need trach will need to wean vent first no cuff leak trach okay Improving weaning well DC planning placement much improved peg placement trach changed acls now resuscitated (3) Hypoxia (4) Pneumonia due to COVID-19 virus Assessment & Plan: ++ as per pulm and ID (5) Diabetes mellitus out of control Assessment & Plan: DAILY ESTIMATED NEEDS: Needs based on Critical care, obesity 11-14kcal/kg actual body wt (140kg) kcals/kg 8960-3687 total kcals 1.5-2.0g prot/kg IBW (64.5kg) g protein/kg 96-129 g total protein 25-30ml/kg abw (83kg) mL/kg 4489-0331 total fluid mLs NUTRITION DIAGNOSIS: Swallowing difficulty R/T respiratory failure as evidenced by pt orally intubated and sedated, on OGT feeds. CURRENT TF: Vital 1.2 goal of 60ml/hr ENTERAL NUTRITION RECOMMENDATIONS: Vital AF 1.2 @ 60ml/hr x 24 hrs to provide 1440ml, 1728kcal, 108g prot, 1168ml free water * Maintain current critical care and carb controlled TF formula of Vital AF * TF @ goal meeds 100% est kcal/prot needs * HOB over 30 degrees/ water flush per MD TF may be lowered to 55ml/hr for improved BG control while maintaining Kcal and pro needs. ADDITIONAL RECOMMENDATIONS: * Calibrated bedscale wt * Monitor Propofol rate, need for TF adjustment-> now off * Monitor BGs closely : now improved, on novolog q 6rs + NISS * Monitor lytes- K elevated, monitor need for TF change * Rec bowel regimen- now w/ rectal tube . (6) Pneumothorax on right Assessment & Plan: right tension pneumothorax trach changed for cuff leak and decreased volumes pressures high after and ptx tension acls resuscitated right chest tube placed ptx resolved cont chest tube to suction am cxr wean vent Right chest tube, tracheostomy, nasogastric tube remain. Previously demonstrated subcutaneous emphysema has nearly completely cleared, with only questionably small residual in the left supraclavicular fossa. Extensive bilateral infiltrates persist. There is no pneumothorax currently. The heart is borderline enlarged. Pneumoperitoneum persists, may be slightly decreased Impression: Markedly improved subcutaneous emphysema Unchanged bilateral infiltrates Persistent but perhaps slightly decreased pneumoperitoneum (7) DEVENDRA (acute kidney injury) (8) Morbid obesity Az Devine Jul 28, 2020 11:05
--- NOTE | 2020-07-28 12:00 | NUR ---
NURSE NOTES: Pt stable ,no resp distress presented,pulled up turned and repositioned.
--- NOTE | 2020-07-28 15:00 | NUR ---
NURSE NOTES: Dr Tyler at bedside,,MG level 1.5,Mg replacement ordered .
--- NOTE | 2020-07-28 15:27 | NUR ---
CASE MANAGEMENT:REVIEW 07/28/2020 SI: COVID PNA VS: T 99.4 HR 102 RR 34 B/P 94/60 SATS 100% ON MECH VENT FIO2 45 LABS: WBC 11.8 CO2 38 BUN 4 CR 0.4 GLU 119 CA 8.1 IS: IV CEFEPIME Q12 IV LASIX QD IV KCL X1 LOVENOX SQ Q12 K-DUR GT BID SEROQUEL GT Q12 MIDODRINE GT Q8HR : ICU STATUS
--- NOTE | 2020-07-28 16:06 | Nephrology Progress Note ---
Assessment/Plan Problem List: (1) DEVENDRA (acute kidney injury) (2) Morbid obesity (3) Diabetes mellitus out of control (4) Pneumonia due to COVID-19 virus (5) Respiratory failure Assessment Acute renal failure Obstructive uropathy, clogged Lennon Respiratory failure COVID-19 pneumonia Morbid obesity Plan July 28: Full code. Labs reviewed. Abnormal electrolytes addressed. Medication list reviewed. Patient has trach and PEG and on ventilator. Continue per consultants. July 27: Full code. In ICU. Trach to vent. Labs reviewed. Renal parameters and electrolytes stable. July 26: Remains in ICU. Remains full code. Trach to vent. Labs reviewed. Abnormal electrolytes addressed. Continue per consultants. July 25: Seen in ICU. Received PEG yesterday. Has trach connected to vent. Full code. Labs reviewed. Albumin bolus given. IV started on table feeding via GT tube initiated. July 24: Patient seen in ICU. Status quo. Has trach. Being ventilated. Has right chest tube. Labs reviewed. Continue per consultants. Low magnesium and low phosphorus replaced. July 23: Patient seen in ICU. Discussed with RN. Yesterday the patient developed tension pneumothorax. Patient has a chest tube today. Labs reviewed. Renal parameters stable. Medication list reviewed. July 22: Status quo. Labs reviewed. Serum calcium elevated. Vitamin D discontinued. Pamidronate 60 mg IV given. Continue to monitor calcium and phosphorus. Patient due for PEG today. July 21: Status quo. Awake responsive. Labs reviewed. Medication list reviewed. Stable from renal standpoint of view. Due for PEG tomorrow. Continue her current management. July 20: Status quo. PEG procedure deferred to July 22. Patient remains full code. Abnormal electrolytes addressed. FiO2 50% unchanged. Continue per consultants. July 19: Status quo. Due for PEG insertion today. Remains full code. Trach and vent. Low magnesium addressed. Continue per consultants. FiO2 50%. July 18: Status quo. Labs reviewed. Low potassium addressed. Continue per consultants. Remains full code. July 17: Remains full code. Trach to vent. FiO2 40%. Labs reviewed. Low potassium addressed. Continue per consultants. July 16: Status quo. FiO2 45%. Discussed with RN. Continue to taper her mind altering medications and sedatives. Stable from renal standpoint of view. Abnormal electrolytes addressed. July 15: Full code. FiO2 50%. Intubated on ventilator. No labs drawn today. Continue per consultants. July 14: Status quo. FiO2 50%. Labs reviewed. Renal parameters stable. C ontinue per current treatment plan and consultants. Medication list reviewed. July 13: FiO2 60% unchanged. Labs reviewed. Renal parameters stable. Medication list reviewed. Continue per consultants. July 12: Full code. Labs reviewed. Normal electrolytes addressed. Continue per pulmonary. Medication list reviewed. July 11: Remains full code. On ventilator. FiO2 down to 65%. Renal parameters stable. Low magnesium addressed. Continue her current management. July 10: Full code. On ventilator. FiO2 70%. Hemoglobin mid sevens. Renal parameters stable. Continue per consultants. July 09: Labs reviewed. Renal parameters stable. FiO2 80% unchanged. Continue per pulmonary. July 08: Labs reviewed. Renal parameters and electrolytes stable. ABG suggestive of high PCO2. At this time patient is on FiO2 of 80%. Continue per pulmonary. Continue to monitor renal parameters. July 07: No CHEM panel drawn today. More potassium given. Continue to monitor renal parameters. Continue per consultants. Discussed with RAKEL Veras. July 06: Low potassium addressed. Albumin bolus for low BP given. Patient remains full code. Continue to monitor electrolytes and renal parameters. Continue per consultants. 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 July 05: Trach to vent. FiO2 80%. Renal parameters stable. PCO2 remains high at 44. Continue to monitor renal parameters. July 04: Patient now trach. Full code. Labs reviewed. Renal parameters stable. Low magnesium addressed. July 03: Intubated. Full code. Labs reviewed. Abnormal electrolytes addressed. Continue per consultants. Overall status unchanged. July 02: Remains intubated. Remains full code. Remains on FiO2 of 70%. Labs reviewed. Abnormal electrolytes addressed. Continue per pulmonary. July 01: Remains on 70% FiO2. Full code. Intubated on ventilator. Retaini ng CO2. Discussed with RN. Will do ABG today. Albumin bolus given. 1 dose of Diamox given. June 30: Status quo. Labs reviewed. Abnormal electrolytes addressed. Remains full code. Remains on ventilator. Magnesium sulfate 4 gram IVPB given. June 29: Full code. Intubated on ventilator. Labs reviewed. Stable from renal standpoint of view. Continue per consultants. June 28: Remains full code. Remains intubated on ventilator. Labs reviewed. Vitamin D supplement ordered. Continue to monitor renal parameters. Continue per consultants. June 27: Remains full code. Intubated on ventilator. Labs reviewed. Abnormal electrolyte addressed. Continue to monitor renal parameters and electrolytes. Continue per consultants. June 26: Labs reviewed. Remains full code. Remains intubated. Back on NGT feeding. Continue to monitor renal parameters. June 25: Labs reviewed. Renal parameters stable. Remains full code. Due to positional status patient could not be fed via NG tube. Starting TPN? Is being entertained. Continue per consultants. June 24: Labs reviewed. Renal parameters stable. Remains full code. Remains intubated on ventilator. Continue per consultants. June 23: Labs reviewed. Renal parameters stable. Discussed with RN. Abnormal electrolyte addressed. Remains full code. Remains on ventilator. Continue per consultants. June 22: Labs reviewed. Low potassium addressed. Discussed with RAKEL Moran. Patient full code. Remains on ventilator. Continue to monitor renal parameters. June 21. Labs reviewed. Abnormal electrolyte addressed. Full code. Remains on ventilator. Medication list reviewed. Continue per pulmonary management. DC IV fluid, resume Lasix daily, check chest x-ray. June 20: Labs reviewed. Abnormal electrolytes. Patient remains full code. Continue per consultants. Noted and addressed June 19: Labs reviewed. Abnormal electrolytes noted and addressed. Remains intubated on ventilator. Remains full code. June 18: Labs reviewed. Remains intubated on ventilator. Full code. Abnormal electrolyte addressed. Continue as is. June 17: Labs reviewed. Abnormal electrolytes addressed. Patient remains full code and intubated on ventilator. Continue per consultants. Renal parameters are within normal limits. June 16: Labs reviewed. Potassium chloride replaced. Remains full code. Remains intubated on ventilator. Continue per consultants. Continue to monitor renal parameters. June 15: Labs reviewed. Serum creatinine 1. Stable from renal standpoint to view. Continue per consultants. June 14: Labs reviewed. Full code. Serum creatinine of 3.5 down to 1.4. Low potassium addressed. Continue per current treatment plan. Continue to monitor renal parameters. Midodrine started. Albumin bolus given. Previously: DC Lasix drip Increase Protonix dose Monitor renal parameters, electrolytes Per orders Subjective ROS Limited/Unobtainable: Yes Objective Objective Last 24 Hour Vital Signs Date Time Temp Pulse Resp B/P (MAP) Pulse Ox O2 Delivery O2 Flow Rate FiO2 07/28/20 15:00 95 35 101/59 (73) 100 07/28/20 14:43 97 23 45 07/28/20 14:00 77 17 105/61 (76) 100 07/28/20 14:00 27 98/68 Mechanical Ventilator 45 07/28/20 14:00 27 98/68 Mechanical Ventilator 45 07/28/20 13:00 18 101/64 Mechanical Ventilator 45 07/28/20 13:00 17 101/64 Mechanical Ventilator 45 07/28/20 13:00 106 26 99/61 (74) 92 07/28/20 12:43 103 27 45 07/28/20 12:00 102 07/28/20 12:00 99 34 94/60 (71) 100 07/28/20 12:00 45 07/28/20 12:00 30 94/59 Mechanical Ventilator 45 07/28/20 12:00 30 94/59 Mechanical Ventilator 45 07/28/20 12:00 Mechanical Ventilator Mechanical Ventilator Mechanical Ventilator 07/28/20 12:00 99.4 07/28/20 11:18 104 25 45 07/28/20 11:00 102 30 100/52 (68) 99 07/28/20 11:00 30 93/55 Mechanical Ventilator 45 07/28/20 11:00 30 93/58 Mechanical Ventilator 45.0 07/28/20 10:00 30 94/49 Mechanical Ventilator 45 07/28/20 10:00 30 94/49 Mechanical Ventilator 45 07/28/20 10:00 104 29 88/64 (72) 100 07/28/20 09:10 99 27 45 07/28/20 09:04 31 108/71 Mechanical Ventilator 45 07/28/20 09:04 31 108/71 Mechanical Ventilator 45 07/28/20 09:00 106 29 118/62 (80) 100 07/28/20 08:00 108 07/28/20 08:00 45 07/28/20 08:00 30 99/58 Mechanical Ventilator 45.0 45 07/28/20 08:00 30 99/58 Mechanical Ventilator 45 07/28/20 08:00 99.5 105 42 97/67 (77) 97 07/28/20 08:00 Mechanical Ventilator Mechanical Ventilator Mechanical Ventilator 07/28/20 07:18 106 26 45 07/28/20 07:00 112 42 120/76 (91) 90 07/28/20 07:00 21 118/77 Mechanical Ventilator 45 07/28/20 07:00 21 118/77 Mechanical Ventilator 45 07/28/20 06:00 104 36 110/71 (84) 98 07/28/20 06:00 22 97/71 Mechanical Ventilator 45 07/28/20 06:00 22 100/70 Mechanical Ventilator 45 07/28/20 05:30 110 36 138/68 (91) 98 07/28/20 05:00 36 125/59 Mechanical Ventilator 45 07/28/20 05:00 36 125/59 Mechanical Ventilator 45 07/28/20 05:00 109 43 118/71 (87) 96 07/28/20 04:00 99.0 109 31 111/71 (84) 97 07/28/20 04:00 110 07/28/20 04:00 37 112/57 Mechanical Ventilator 45 07/28/20 04:00 37 112/57 Mechanical Ventilator 45 07/28/20 04:00 45 07/28/20 04:00 Mechanical Ventilator Mechanical Ventilator Mechanical Ventilator 07/28/20 03:30 108 26 111/75 (87) 97 07/28/20 03:24 112 28 45 07/28/20 03:10 22 101/74 Mechanical Ventilator 45 07/28/20 03:00 27 122/81 Mechanical Ventilator 45 07/28/20 03:00 27 122/81 Mechanical Ventilator 45 07/28/20 03:00 109 25 101/74 (83) 92 07/28/20 02:45 106 22 114/77 (89) 100 07/28/20 02:30 110 28 116/65 (82) 94 07/28/20 02:15 109 27 127/77 (94) 91 07/28/20 02:00 24 127/77 Mechanical Ventilator 45 07/28/20 02:00 24 127/77 Mechanical Ventilator 45 07/28/20 02:00 108 27 108/70 (83) 97 07/28/20 01:15 114 38 124/76 (92) 88 07/28/20 01:00 111 26 119/81 (94) 99 07/28/20 01:00 22 124/76 Non-Rebreather 45 07/28/20 01:00 22 124/76 Mechanical Ventilator 45 07/28/20 00:30 113 27 103/75 (84) 97 07/28/20 00:00 25 110/65 Mechanical Ventilator 45 07/28/20 00:00 25 110/65 Mechanical Ventilator 100 07/28/20 00:00 113 07/28/20 00:00 99.8 115 26 121/78 (92) 99 07/28/20 00:00 Mechanical Ventilator Mechanical Ventilator Mechanical Ventilator 07/28/20 00:00 45 07/27/20 23:30 120 27 120/76 (91) 96 07/27/20 23:22 120 32 45 07/27/20 23:00 28 122/66 Mechanical Ventilator 45 07/27/20 23:00 28 122/66 Mechanical Ventilator 45 07/27/20 23:00 120 36 117/74 (88) 92 07/27/20 22:45 122 30 125/72 (89) 94 07/27/20 22:30 123 34 123/75 (91) 90 07/27/20 22:15 120 32 126/74 (91) 95 07/27/20 22:00 122 35 125/83 (97) 90 07/27/20 22:00 31 126/74 Mechanical Ventilator 45 07/27/20 22:00 31 126/74 07/27/20 21:30 100.5 121 34 124/73 (90) 88 07/27/20 21:00 119 32 126/81 (96) 91 07/27/20 21:00 115 11 132/89 (103) 95 07/27/20 21:00 29 137/90 Mechanical Ventilator 45 07/27/20 21:00 32 126/78 Mechanical Ventilator 45 07/27/20 20:30 115 11 132/89 (103) 95 07/27/20 20:00 118 07/27/20 20:00 99.0 116 28 134/87 (103) 96 07/27/20 20:00 28 135/82 Mechanical Ventilator 45 07/27/20 20:00 25 135/80 Mechanical Ventilator 45 07/27/20 20:00 45 07/27/20 20:00 Mechanical Ventilator Mechanical Ventilator Mechanical Ventilator 07/27/20 19:30 120 38 45 07/27/20 19:00 115 31 131/82 (98) 94 07/27/20 19:00 28 135/82 Mechanical Ventilator 45 07/27/20 19:00 29 137/90 Mechanical Ventilator 45 07/27/20 19:00 114 32 131/82 (98) 96 07/27/20 18:00 115 36 135/70 (91) 95 07/27/20 18:00 36 135/70 Mechanical Ventilator 45 07/27/20 18:00 36 135/70 Mechanical Ventilator 45 07/27/20 17:18 108 27 45 07/27/20 17:00 110 33 123/73 (90) 95 07/27/20 17:00 33 123/73 Mechanical Ventilator 45 07/27/20 17:00 33 123/73 Mechanical Ventilator 45 Intake and Output 07/27/20 07/28/20 19:00 07:00 Intake Total 1630 ml 1505 ml Output Total 390 ml 1135 ml Balance 1240 ml 370 ml Free Water 350 ml 100 ml IV Total 740 ml 845 ml Tube Feeding 540 ml 560 ml Output Urine Total 390 ml 935 ml Chest Tube Drainage Total 200 ml Current Medications Medications (Trade) Dose Ordered Sig/Zelda Route PRN Reason Start Time Stop Time Status Last Admin Dose Admin Acetaminophen (Tylenol) 650 mg Q4H PRN NG Temp >100.5 07/27/20 03:45 08/26/20 03:44 07/26/20 20:25 Acetaminophen (Tylenol) 650 mg Q6H PRN NG Mild Pain (Pain Scale 1-3) 06/29/20 10:15 07/29/20 10:14 07/22/20 11:56 Calcitonin Perris (Miacalcin) 1 sprays DAILY NASAL 07/22/20 14:00 10/20/20 13:59 07/28/20 11:34 Chlorhexidine Gluconate (Inna-Hex 2%) 1 applic DAILY@2000 TOPIC 07/20/20 20:00 10/18/20 19:59 07/27/20 20:18 Dextrose (Dextrose 50%) 25 ml Q30M PRN IV Hypoglycemia 06/05/20 10:45 09/03/20 10:44 Dextrose (Dextrose 50%) 50 ml Q30M PRN IV Hypoglycemia 06/05/20 10:45 09/03/20 10:44 Dextrose/Sodium Chloride 1,000 ml @ 50 mls/hr Q20H IV 07/25/20 11:15 08/24/20 11:14 07/28/20 00:45 Docusate Sodium (Colace) 100 mg TWICE A DAY NG 07/26/20 18:00 08/25/20 17:59 07/28/20 09:07 Enoxaparin Sodium (Lovenox) 110 mg EVERY 12 HOURS SUBQ 07/17/20 21:00 10/15/20 20:59 07/28/20 09:08 Fentanyl Citrate 250 ml @ 1 mls/hr Q24H IV 07/27/20 07:45 07/29/20 07:44 07/28/20 09:04 Guaifenesin/ Codeine Phosphate (Robitussin with codeine) 5 ml Q6H PRN NG For Cough 07/14/20 14:15 08/13/20 14:14 07/18/20 21:44 Lansoprazole (Prevacid) 30 mg DAILY GT 07/18/20 09:00 08/09/20 08:59 07/28/20 09:07 Magnesium Sulfate 100 ml @ 100 mls/hr Q1H IVPB 07/28/20 15:30 07/28/20 17:29 07/28/20 15:39 Meropenem 1 gm/ Sodium Chloride 55 ml @ 110 mls/hr Q8H IVPB 07/22/20 12:00 08/02/20 11:59 07/28/20 11:35 Midazolam HCl 200 ml @ 0 mls/hr Q24H PRN IV sedation 07/22/20 14:06 07/29/20 14:05 07/28/20 03:10 Midodrine (Pro-Amatine) 10 mg Q8HR GT 06/30/20 14:00 09/12/20 13:59 07/28/20 13:48 Polyethylene Glycol (Miralax) 17 gm BEDTIME ORAL 07/26/20 21:00 08/25/20 20:59 07/27/20 21:42 Potassium Phosphate 20 mm/ Sodium Chloride 281.6667 ml @ 46.944 m... ONCE ONCE IV 07/28/20 17:00 07/28/20 22:59 Quetiapine Fumarate (SEROqueL) 50 mg Q12HR GT 07/16/20 13:30 08/30/20 13:29 07/28/20 09:07 Laboratory Tests 07/28/20 05:55: White Blood Count 11.8H, Red Blood Count 3.05L, Hemoglobin 8.8L, Hematocrit 28.8L, Mean Corpuscular Volume 94, Mean Corpuscular Hemoglobin 28.7, Mean Corpuscular Hemoglobin Concent 30.4L, Red Cell Distribution Width 17.6H, Platelet Count 257, Mean Platelet Volume 7.7, Neutrophils (%) (Auto) 54.7, Lymphocytes (%) (Auto) 27.6, Monocytes (%) (Auto) 7.0, Eosinophils (%) (Auto) 9.8H, Basophils (%) (Auto) 0.9, Sodium Level 145, Potassium Level 4.3, Chloride Level 104, Carbon Dioxide Level 38H, Anion Gap 3L, Blood Urea Nitrogen 4L, Creatinine 0.4L, Estimat Glomerular Filtration Rate > 60, Glucose Level 119H, Calcium Level 8.1L, Phosphorus Level 1.9L, Magnesium Level 1.5L, Total Bilirubin 0.6, Aspartate Amino Transf (AST/SGOT) 21, Alanine Aminotransferase (ALT/SGPT) 16, Alkaline Phosphatase 65, Total Protein 6.6, Albumin 2.2L, Globulin 4.4, Albumin/Globulin Ratio 0.5L Height (Feet): 5 Height (Inches): 5.00 Weight (Pounds): 223 General Appearance: no apparent distress EENT: other - Trach to vent Cardiovascular: normal rate Respiratory/Chest: decreased breath sounds Abdomen: distended Rigo Tyler MD Jul 28, 2020 16:06
[2020-07-28] MEDS ORDERED: Potassium Phosphate 20 MM in NS 275 ML IV ONE (17:00)
--- NOTE | 2020-07-28 17:00 | NUR ---
NURSE NOTES: Bed bath given ,kept dry and clean,pulled up turned and repositioned.
--- NOTE | 2020-07-28 18:52 | NUR ---
NURSE HAND-OFF REPORT: Latest Vital Signs: Temperature 98.9 , Pulse 106 , B/P 118 /68 , Respiratory Rate 32 , O2 SAT 95 , Mechanical Ventilator, O2 Flow Rate . Vital Sign Comment: stable EKG Rhythm: Sinus Tachycardia Rhythm change?: N MD Notified?: N Response: Latest Meyers Fall Score: 50 Fall Risk: High Risk Safety Measures: Call light Within Reach, Bed Alarm Zone 3, Side Rails Side Rails x2, Bed position Low and Locked. Fall Precautions: Yellow Socks Door Sign Patient Fall Education Report given to .Elidia Woods RN.
--- NOTE | 2020-07-28 19:15 | NUR ---
Received report from RAKEL Kwan and assumed care of patient.
--- NOTE | 2020-07-28 19:19 | NUR ---
NURSE HAND-OFF REPORT: Latest Vital Signs: Temperature 98.9 , Pulse 106 , B/P 118 /68 , Respiratory Rate 32 , O2 SAT 95 , Mechanical Ventilator, O2 Flow Rate . Vital Sign Comment: stable EKG Rhythm: Sinus Tachycardia Rhythm change?: Jesus TOLLIVER Notified?: Jesus EDWARDS MD Response: Latest Meyers Fall Score: 50 Fall Risk: High Risk Safety Measures: Call light Within Reach, Bed Alarm Zone 3, Side Rails Side Rails x2, Bed position Low and Locked. Fall Precautions: Yellow Socks Door Sign Patient Fall Education Report given to Elidia Woods.[email or web address].
--- NOTE | 2020-07-28 19:30 | NUR ---
[id number]: Pt bucking vent and very agitated with RR into the 40's. RT performing assessment at the bed as well as RN so suctioning was performed but continued to griffith the vent. Increased sedation to allow appropriate and adequate ventilation to take place. See IV spreadsheet for details of sedation titration. Assessment completed. Pt has blistering to chest and inner R upper thigh. See charting for details. Pt repositioned, oral care provided, and VSS post sedation changes. Pt appears more relaxed. Will continue to monitor.
[2020-07-28] MEDS: Dyna-Hex 2% Top Sol 2oz TOPIC SCH (19:45)
[2020-07-28] MEDS: Miralax 17gm pkt ORAL SCH (21:00)
--- NOTE | 2020-07-28 22:30 | NUR ---
Pt remains stable and in NAD. R CT remains patent and the dressing remains CDI. Oral care and repositioning completed. Will continue to monitor the patient.
[2020-07-29] VITALS (68 sets, daily range): BP systolic 84–131; BP diastolic 48–107
--- NOTE | 2020-07-29 00:30 | NUR ---
Pt remains stable in NAD. VSS, repositioned and oral care provided. Will continue to monitor.
--- NOTE | 2020-07-29 02:31 | NUR ---
Complete bath provided on patient. Repositioned, oral care provided. Patient remains stable. Will continue to monitor.
[2020-07-29] MEDS: Meropenem 1 GM in NS 55 ML IVPB SCH ×3 (04:00→19:55)
--- NOTE | 2020-07-29 04:20 | NUR ---
0400 assessment completed. See charting for details. Pt remains stable and in NAD. Repositioned and oral care provided. Will continue to monitor.
[2020-07-29 05:12] LABS: BASOPHILS % (AUTO) 0.9 % (0.0-2.0); EOSINOPHILS % (AUTO) 16.6 % (0.0-3.0); HEMATOCRIT 31.7 % (37.0-47.0); HEMOGLOBIN 9.5 G/DL (12.0-16.0); LYMPHOCYTES % (AUTO) 28.1 % (20.0-45.0); MEAN CORPUSCULAR VOLUME 96 FL (80-99); MONOCYTES % (AUTO) 5.3 % (1.0-10.0); NEUTROPHILS % (AUTO) 49.2 % (45.0-75.0); PLATELET COUNT 295 K/UL (150-450); RED BLOOD COUNT 3.31 M/UL (4.20-5.40); RED CELL DISTRIBUTION WIDTH 17.9 % (11.6-14.8); WHITE BLOOD COUNT 11.7 K/UL (4.8-10.8)
[2020-07-29 05:56] LABS: ALANINE AMINOTRANSFERASE 21 U/L (12-78); ALBUMIN 2.3 G/DL (3.4-5.0); ALBUMIN/GLOBULIN RATIO 0.5 (1.0-2.7); ALKALINE PHOSPHATASE 71 U/L (46-116); ANION GAP 1 mmol/L (5-15); ASPARTATE AMINO TRANSFERASE 26 U/L (15-37); BILIRUBIN,TOTAL 0.5 MG/DL (0.2-1.0); BLOOD UREA NITROGEN 3 mg/dL (7-18); CALCIUM 8.3 MG/DL (8.5-10.1); CARBON DIOXIDE 39 MMOL/L (21-32); CHLORIDE 103 MMOL/L (98-107); CREATININE 0.3 MG/DL (0.55-1.30); PHOSPHORUS 2.8 MG/DL (2.5-4.9); POTASSIUM 4.6 MMOL/L (3.5-5.1); SODIUM 143 MMOL/L (136-145)
[2020-07-29] MEDS: Midodrine 10mg tab GT SCH ×3 (06:05→21:55)
[2020-07-29] MEDS: Acetaminophen 650mg/20.3ml NG PRN ×2 (06:08→20:24)
--- NOTE | 2020-07-29 06:09 | NUR ---
Pt tachycardic and tachypneic this am in process of spiking temperature. Administered tylenol via GT. Patient on cooling blanket. Placed more water into cooling blanket reservoir for optimal cooling. Will continue to monitor the patient. Pt remains a RASS -2, BP stable. Pt repositioned and oral care provided.
--- NOTE | 2020-07-29 06:27 | Hematology/Onc Progress Note ---
Assessment/Plan Assessment/Plan # Deep vein thrombosis of the right calf --> given onoing anemia and low plts --> consider ivc if bleeding--once stable, needs it placed --> once stable, for radiology and ivc filter placement # Thrombocytopenia is due to infection/underlying covid19+++ --> ABX ceftriaxone -->zosyn-->off --> on steriods likely cause of initial wbc --> per pulm --> plt 107->156-->192-->205 --> smear reviewed # Leukocytosis due to Pneumonia due to COVID-19 virus --> per pulm rx -> sp remdesivir --> wbc 11.9-->11-->21-->8.8-->11.7 # Anemia due to chronic disease --> hgb goal is >7 --> transfuse prn --> ferritin is >1000 --> hold off on iron --> 10-->9.8->9-->8-->8.2->>7.1-->7.9->7.5-->9.5 --> 1 unit prbc 07/24 # Elevated ddimer due to covid19++ --> duplex legs is negative --> underlying covid rx # Hypoxia -> due to covid19 --> steriods as needed # Hypoxemia --> rx same as above # Respiratory failure --> on vent/trach --> per pulm # Diabetes mellitus out of control --> hgb a1c goal <7 # Dysphagia --> s/p peg # Poor prognosis # Dvt ppx ivc filter once more stable Appreciate consultation and bowen RN Subjective HEENT: Denies: no symptoms, eye pain, blurred vision, tearing, double vision, ear pain, ear discharge, nose pain, nose congestion, throat pain, throat swelling, mouth pain, mouth swelling, other Cardiovascular: Denies: no symptoms, chest pain, edema, irregular heart rate, lightheadedness, palpitations, syncope, other Gastrointestinal/Abdominal: Denies: no symptoms, abdomen distended, abdominal pain, black stools, tarry stools, blood in stool, constipated, diarrhea, difficulty swallowing, nausea, poor appetite, poor fluid intake, rectal bleeding, vomiting, other Genitourinary: Denies: no symptoms, burning, discharge, frequency, flank pain, hematuria, incontinence, pain, urgency, other Neurologic/Psychiatric: Denies: no symptoms, anxiety, depressed, emotional problems, headache, numbness, paresthesia, pre-existing deficit, seizure, tingling, tremors, weakness, other Endocrine: Denies: no symptoms, excessive sweating, flushing, intolerance to cold, intolerance to heat, increased hunger, increased thirst, increased urine, unexplained weight gain, unexplained weight loss, other Hematologic/Lymphatic: Denies: no symptoms, anemia, easy bleeding, easy bruising, adenopathy, other Allergies: Coded Allergies: No Known Allergies (Unverified , 05/28/20) Subjective 06/10 nv, on vent, with ogt, on fentanyl and versed, plt stable 06/11 nv, vent adjusted is on ogt, meds reviewed 06/12 nv, vent, meds noted, labs noted, no bleeding, hgb 10.4 06/13 nv, is on vent, meds reviewed, no bleeding, cbc reviewed 06/14 nv, on vent, tachy, labs reviewed, gross hematuria, febrile overnight, abx 06/17 nv, on vent, labs noted, no major changes, feeling better overnight 06/18 nv, meds reviewed, labs noted, no major events, hgb 8.6 06/19 nv, remains intubated, with fluids, labs reviewed, meds noted 06/20 nv, intubated remains on restraints, meds noted as well, as labs 06/21 nv, remains on vent, on restraints, meds reviewed, labs noted 06/22: covering Dr. Del Cid no acute events 06/23 sedated, on vent, nv, intubated, meds reviewed, versed 06/24 nv, on vent, no night sweats, no bleeding, remains in icu 06/25 nv, on vent, icu, meds noted, no bleeding, comfortable 06/26 nv, on versed, icu, weaning parameters, labs noted 06/27 nv, overnight fighting vent, as per pulm fentanyl on board 06/28 nv, on vent, labs reviewed, as per pulm, meds noted 06/30 nv, icu, labs pending, is on fentanyl, versed, no new changes 07/01 nv, icu, is on vent, labs pending, no new changes per rn 07/02 nv, icu is on vent, labs noted, hgb is stable 07/03 nv, icu, is on vent, potential trrach when stable, cbc reviewed 07/04 icu, nv, labs are noted, stable for trach today dw Rn Dl 07/05 icu, nv, on vent, with ng and picc in place, labs noted, s/p trach 07/07 icu, nv, on tv, no bleeding, labs noted, meds reviewed 07/08 icu, nv, on tv, labs reviewed, meds noted, no bleeding 07/09 icu, nv, meds noted, no bleeding, blood transfusion was completed 07/10 icu, nv, labs ntoed, no bleeding, hgb improved, hgb 7.8 07/11 icu, nv, labs reviewed, hgb is improved, for ivcf if stabilizes 07/12 icu, nv, labs reviewed, meds noted, no bleeding, remains on vent 07/13 icu, on vent, nv, no bleeding, labs reviewed, no major events, dw rn 07/14 icu, on vent, nv, tolerating ngt feeds, dw Rn, meds reviewed 07/15 icu, on vent, trach, tolerating ngt, meds noted, no bleeding 07/16 icu, vent, labs are noted, with trach, is stable, hgb 9.2 07/17 icu, had a bm overnight, remains on vent with trach, labs noted 07/18 icu, nv, labs are ntoed, no bleeding, on trach, on levophed 07/20 nc, icu, meds noted, v/t, no bleeding, labs noted, on versed 07/21 nv, trach/vent, tube feeds on hold, labs reviewed, icu 07/22 nv, icu, bp remains high, on v/t, labs noted, no bleeding 07/23 nv, ct is in place, on v/t, meds reviewed, in icu, on LEVO 07/24 nv, ct with blood secretions, to get 1 unit prbc today, icu 07/25 icu, nv, trach/v, obtunded, sedated, no bleeding, dw rn 07/26 icu, nv, v/t, with gt, remains obtunded, as well as sedated, labs noted 07/27: no events. 3/7: remains intubated on vent 07/29 agitated, tachypneic, tachycardic is on vent, labs reviewed, meds noted Objective Objective Current Medications Medications (Trade) Dose Ordered Sig/Zelda Route PRN Reason Start Time Stop Time Status Last Admin Dose Admin Acetaminophen (Tylenol) 650 mg Q4H PRN NG Temp >100.5 07/27/20 03:45 08/26/20 03:44 07/29/20 06:08 Acetaminophen (Tylenol) 650 mg Q6H PRN NG Mild Pain (Pain Scale 1-3) 06/29/20 10:15 07/29/20 10:14 07/22/20 11:56 Calcitonin [place] (Miacalcin) 1 sprays DAILY NASAL 07/22/20 14:00 10/20/20 13:59 07/28/20 11:34 Chlorhexidine Gluconate (Inna-Hex 2%) 1 applic DAILY@2000 TOPIC 07/20/20 20:00 10/18/20 19:59 07/28/20 19:45 Dextrose (Dextrose 50%) 25 ml Q30M PRN IV Hypoglycemia 06/05/20 10:45 09/03/20 10:44 Dextrose (Dextrose 50%) 50 ml Q30M PRN IV Hypoglycemia 06/05/20 10:45 09/03/20 10:44 Dextrose/Sodium Chloride 1,000 ml @ 50 mls/hr Q20H IV 07/25/20 11:15 08/24/20 11:14 07/28/20 17:25 Docusate Sodium (Colace) 100 mg TWICE A DAY NG 07/26/20 18:00 08/25/20 17:59 07/28/20 17:24 Enoxaparin Sodium (Lovenox) 110 mg EVERY 12 HOURS SUBQ 07/17/20 21:00 10/15/20 20:59 07/28/20 19:49 Fentanyl Citrate 250 ml @ 1 mls/hr Q24H IV 07/27/20 07:45 07/29/20 07:44 07/28/20 09:04 Guaifenesin/ Codeine Phosphate (Robitussin with codeine) 5 ml Q6H PRN NG For Cough 07/14/20 14:15 08/13/20 14:14 07/18/20 21:44 Lansoprazole (Prevacid) 30 mg DAILY GT 07/18/20 09:00 08/09/20 08:59 07/28/20 09:07 Meropenem 1 gm/ Sodium Chloride 55 ml @ 110 mls/hr Q8H IVPB 07/22/20 12:00 08/02/20 11:59 07/29/20 04:00 Midazolam HCl 200 ml @ 0 mls/hr Q24H PRN IV sedation 07/22/20 14:06 07/29/20 14:05 07/28/20 22:42 Midodrine (Pro-Amatine) 10 mg Q8HR GT 06/30/20 14:00 09/12/20 13:59 07/29/20 06:05 Polyethylene Glycol (Miralax) 17 gm BEDTIME ORAL 07/26/20 21:00 08/25/20 20:59 07/28/20 21:00 Quetiapine Fumarate (SEROqueL) 50 mg Q12HR GT 07/16/20 13:30 08/30/20 13:29 07/28/20 19:45 Last 24 Hour Vital Signs Date Time Temp Pulse Resp B/P (MAP) Pulse Ox O2 Delivery O2 Flow Rate FiO2 07/29/20 06:00 100.1 127 45 130/66 (87) 89 07/29/20 06:00 46 130/66 Mechanical Ventilator 45 07/29/20 06:00 43 133/66 Mechanical Ventilator 45 07/29/20 05:45 125 56 120/50 (73) 100 07/29/20 05:30 127 46 117/71 (86) 84 07/29/20 05:15 123 50 115/80 (92) 85 07/29/20 05:00 99.7 122 45 126/107 (113) 86 07/29/20 05:00 43 115/80 Mechanical Ventilator 45 07/29/20 05:00 43 115/80 Mechanical Ventilator 45 07/29/20 04:45 121 37 123/71 (88) 82 07/29/20 04:30 119 32 118/77 (91) 91 07/29/20 04:15 118 33 125/86 (99) 93 07/29/20 04:00 33 106/75 Mechanical Ventilator 45 07/29/20 04:00 33 106/75 Mechanical Ventilator 45 07/29/20 04:00 Mechanical Ventilator Mechanical Ventilator Mechanical Ventilator 07/29/20 04:00 115 07/29/20 04:00 45 07/29/20 04:00 119 33 106/75 (85) 100 07/29/20 03:45 117 31 107/75 (86) 92 07/29/20 03:30 115 28 45 07/29/20 03:30 99.1 117 32 121/68 (85) 92 07/29/20 03:15 117 37 118/71 (87) 86 07/29/20 03:00 27 99/73 Mechanical Ventilator 45 07/29/20 03:00 27 99/73 Mechanical Ventilator 45 07/29/20 03:00 115 27 99/73 (82) 92 07/29/20 02:45 116 32 112/84 (93) 93 07/29/20 02:30 113 30 116/65 (82) 98 07/29/20 02:15 115 29 131/61 (84) 93 07/29/20 02:00 116 31 120/70 (87) 90 07/29/20 02:00 31 120/70 Mechanical Ventilator 45 07/29/20 02:00 31 120/70 Mechanical Ventilator 45 07/29/20 01:45 117 56 120/77 (91) 88 07/29/20 01:30 105 32 121/73 (89) 85 07/29/20 01:15 110 35 122/83 (96) 85 07/29/20 01:00 104 43 95/62 (73) 99 07/29/20 01:00 43 95/62 Mechanical Ventilator 45 07/29/20 01:00 43 95/62 Mechanical Ventilator 45 07/29/20 00:45 103 52 93/61 (72) 99 07/29/20 00:30 98.8 105 33 103/67 (79) 100 07/29/20 00:15 104 46 99/59 (72) 100 07/29/20 00:00 110 07/29/20 00:00 106 47 102/53 (69) 100 07/29/20 00:00 Mechanical Ventilator Mechanical Ventilator Mechanical Ventilator 07/29/20 00:00 36 103/67 Mechanical Ventilator 45 07/29/20 00:00 36 103/67 Mechanical Ventilator 45 07/28/20 23:45 107 54 105/61 (76) 100 07/28/20 23:30 108 26 45 07/28/20 23:30 109 51 105/66 (79) 98 07/28/20 23:15 110 42 102/54 (70) 97 07/28/20 23:00 38 113/58 Mechanical Ventilator 45 07/28/20 23:00 38 113/58 Mechanical Ventilator 45 07/28/20 23:00 99.2 110 19 113/58 (76) 100 07/28/20 22:45 110 26 102/69 (80) 99 07/28/20 22:42 30 113/61 Mechanical Ventilator 45 07/28/20 22:30 111 32 113/61 (78) 99 07/28/20 22:15 115 33 102/71 (81) 96 07/28/20 22:00 33 102/71 Mechanical Ventilator 45 07/28/20 22:00 33 102/71 Mechanical Ventilator 45 07/28/20 22:00 115 26 112/63 (79) 90 07/28/20 21:45 114 39 105/68 (80) 96 07/28/20 21:30 115 32 118/65 (82) 93 07/28/20 21:15 116 33 119/72 (88) 95 07/28/20 21:00 119 38 121/69 (86) 91 07/28/20 21:00 36 119/72 Mechanical Ventilator 45 07/28/20 21:00 36 119/72 Mechanical Ventilator 45 07/28/20 20:45 116 40 116/81 (93) 96 07/28/20 20:30 115 33 117/70 (86) 96 07/28/20 20:15 112 38 128/75 (92) 94 07/28/20 20:00 108 07/28/20 20:00 35 128/75 Mechanical Ventilator 45 07/28/20 20:00 35 128/75 Mechanical Ventilator 45 07/28/20 20:00 45 07/28/20 20:00 98.6 111 36 135/62 (86) 99 07/28/20 20:00 Mechanical Ventilator Mechanical Ventilator Mechanical Ventilator 07/28/20 19:45 109 48 133/71 (91) 94 07/28/20 19:30 109 41 45 07/28/20 19:30 112 35 138/79 (98) 90 07/28/20 19:30 37 133/71 Mechanical Ventilator 45 07/28/20 19:30 37 133/71 Mechanical Ventilator 45 07/28/20 19:15 110 42 144/86 (105) 89 07/28/20 19:00 111 39 128/77 (94) 92 07/28/20 18:00 32 118/68 Mechanical Ventilator 45 07/28/20 18:00 32 118/68 Mechanical Ventilator 45 07/28/20 18:00 106 31 100/60 (73) 95 07/28/20 17:03 95 24 45 07/28/20 17:00 98.9 107 37 113/89 (97) 93 07/28/20 17:00 30 91/59 Mechanical Ventilator 45 07/28/20 17:00 30 91/59 Mechanical Ventilator 45 07/28/20 16:00 45 07/28/20 16:00 95 31 88/54 (65) 100 07/28/20 16:00 94 07/28/20 16:00 30 93/66 Mechanical Ventilator 45 07/28/20 16:00 30 93/66 Mechanical Ventilator 45 07/28/20 16:00 Mechanical Ventilator Mechanical Ventilator Mechanical Ventilator 07/28/20 15:00 95 35 101/59 (73) 100 07/28/20 15:00 17 101/59 Mechanical Ventilator 45 07/28/20 15:00 17 101/59 Mechanical Ventilator 45 07/28/20 14:43 97 23 45 07/28/20 14:00 77 17 105/61 (76) 100 07/28/20 14:00 27 98/68 Mechanical Ventilator 45 07/28/20 14:00 27 98/68 Mechanical Ventilator 45 07/28/20 13:00 18 101/64 Mechanical Ventilator 45 07/28/20 13:00 17 101/64 Mechanical Ventilator 45 07/28/20 13:00 106 26 99/61 (74) 92 07/28/20 12:43 103 27 45 07/28/20 12:00 102 07/28/20 12:00 99 34 94/60 (71) 100 07/28/20 12:00 45 07/28/20 12:00 30 94/59 Mechanical Ventilator 45 07/28/20 12:00 30 94/59 Mechanical Ventilator 45 07/28/20 12:00 Mechanical Ventilator Mechanical Ventilator Mechanical Ventilator 07/28/20 12:00 99.4 07/28/20 11:18 104 25 45 07/28/20 11:00 102 30 100/52 (68) 99 07/28/20 11:00 30 93/55 Mechanical Ventilator 45 07/28/20 11:00 30 93/58 Mechanical Ventilator 45.0 07/28/20 10:00 30 94/49 Mechanical Ventilator 45 07/28/20 10:00 30 94/49 Mechanical Ventilator 45 07/28/20 10:00 104 29 88/64 (72) 100 07/28/20 09:10 99 27 45 07/28/20 09:04 31 108/71 Mechanical Ventilator 45 07/28/20 09:04 31 108/71 Mechanical Ventilator 45 07/28/20 09:00 106 29 118/62 (80) 100 07/28/20 08:00 108 07/28/20 08:00 45 07/28/20 08:00 30 99/58 Mechanical Ventilator 45.0 45 07/28/20 08:00 30 99/58 Mechanical Ventilator 45 07/28/20 08:00 99.5 105 42 97/67 (77) 97 07/28/20 08:00 Mechanical Ventilator Mechanical Ventilator Mechanical Ventilator 07/28/20 07:18 106 26 45 07/28/20 07:00 112 42 120/76 (91) 90 07/28/20 07:00 21 118/77 Mechanical Ventilator 45 07/28/20 07:00 21 118/77 Mechanical Ventilator 45 07/28/20 06:00 104 36 110/71 (84) 98 07/28/20 06:00 22 97/71 Mechanical Ventilator 45 07/28/20 06:00 22 100/70 Mechanical Ventilator 45 07/28/20 05:30 110 36 138/68 (91) 98 07/28/20 05:00 36 125/59 Mechanical Ventilator 45 07/28/20 05:00 36 125/59 Mechanical Ventilator 45 07/28/20 05:00 109 43 118/71 (87) 96 07/28/20 04:00 99.0 109 31 111/71 (84) 97 07/28/20 04:00 110 07/28/20 04:00 37 112/57 Mechanical Ventilator 45 07/28/20 04:00 37 112/57 Mechanical Ventilator 45 07/28/20 04:00 45 07/28/20 04:00 Mechanical Ventilator Mechanical Ventilator Mechanical Ventilator 07/28/20 03:30 108 26 111/75 (87) 97 07/28/20 03:24 112 28 45 07/28/20 03:10 22 101/74 Mechanical Ventilator 45 07/28/20 03:00 27 122/81 Mechanical Ventilator 45 07/28/20 03:00 27 122/81 Mechanical Ventilator 45 07/28/20 03:00 109 25 101/74 (83) 92 07/28/20 02:45 106 22 114/77 (89) 100 07/28/20 02:30 110 28 116/65 (82) 94 07/28/20 02:15 109 27 127/77 (94) 91 07/28/20 02:00 24 127/77 Mechanical Ventilator 45 07/28/20 02:00 24 127/77 Mechanical Ventilator 45 07/28/20 02:00 108 27 108/70 (83) 97 07/28/20 01:15 114 38 124/76 (92) 88 07/28/20 01:00 111 26 119/81 (94) 99 07/28/20 01:00 22 124/76 Non-Rebreather 45 07/28/20 01:00 22 124/76 Mechanical Ventilator 45 07/28/20 00:30 113 27 103/75 (84) 97 07/28/20 00:00 25 110/65 Mechanical Ventilator 45 07/28/20 00:00 25 110/65 Mechanical Ventilator 100 07/28/20 00:00 113 07/28/20 00:00 99.8 115 26 121/78 (92) 99 07/28/20 00:00 Mechanical Ventilator Mechanical Ventilator Mechanical Ventilator 07/28/20 00:00 45 07/27/20 23:30 120 27 120/76 (91) 96 07/27/20 23:22 120 32 45 07/27/20 23:00 28 122/66 Mechanical Ventilator 45 07/27/20 23:00 28 122/66 Mechanical Ventilator 45 07/27/20 23:00 120 36 117/74 (88) 92 07/27/20 22:45 122 30 125/72 (89) 94 07/27/20 22:30 123 34 123/75 (91) 90 07/27/20 22:15 120 32 126/74 (91) 95 07/27/20 22:00 122 35 125/83 (97) 90 07/27/20 22:00 31 126/74 Mechanical Ventilator 45 07/27/20 22:00 31 126/74 07/27/20 21:30 100.5 121 34 124/73 (90) 88 07/27/20 21:00 119 32 126/81 (96) 91 07/27/20 21:00 115 11 132/89 (103) 95 07/27/20 21:00 29 137/90 Mechanical Ventilator 45 07/27/20 21:00 32 126/78 Mechanical Ventilator 45 07/27/20 20:30 115 11 132/89 (103) 95 07/27/20 20:00 118 07/27/20 20:00 99.0 116 28 134/87 (103) 96 07/27/20 20:00 28 135/82 Mechanical Ventilator 45 07/27/20 20:00 25 135/80 Mechanical Ventilator 45 07/27/20 20:00 45 07/27/20 20:00 Mechanical Ventilator Mechanical Ventilator Mechanical Ventilator 07/27/20 19:30 120 38 45 07/27/20 19:00 115 31 131/82 (98) 94 07/27/20 19:00 28 135/82 Mechanical Ventilator 45 07/27/20 19:00 29 137/90 Mechanical Ventilator 45 07/27/20 19:00 114 32 131/82 (98) 96 07/27/20 18:00 115 36 135/70 (91) 95 07/27/20 18:00 36 135/70 Mechanical Ventilator 45 07/27/20 18:00 36 135/70 Mechanical Ventilator 45 07/27/20 17:18 108 27 45 07/27/20 17:00 110 33 123/73 (90) 95 07/27/20 17:00 33 123/73 Mechanical Ventilator 45 07/27/20 17:00 33 123/73 Mechanical Ventilator 45 07/27/20 16:00 113 07/27/20 16:00 26 112/69 Mechanical Ventilator 45 07/27/20 16:00 26 112/69 Mechanical Ventilator 45 07/27/20 16:00 45 07/27/20 16:00 Mechanical Ventilator Mechanical Ventilator Mechanical Ventilator 07/27/20 16:00 99.3 108 26 112/69 (83) 94 07/27/20 15:00 34 116/73 Mechanical Ventilator 45 07/27/20 15:00 34 116/73 Mechanical Ventilator 45 07/27/20 15:00 108 34 116/73 (87) 90 07/27/20 14:56 112 25 45 07/27/20 14:00 103 22 119/64 (82) 93 07/27/20 14:00 22 119/64 Mechanical Ventilator 45 07/27/20 14:00 22 119/64 Mechanical Ventilator 45 07/27/20 13:15 104 30 45 07/27/20 13:00 100 30 99/55 (70) 100 07/27/20 13:00 30 99/55 Mechanical Ventilator 45 07/27/20 13:00 30 99/55 Mechanical Ventilator 45 07/27/20 12:00 98 23 105/58 (74) 98 07/27/20 12:00 Mechanical Ventilator Mechanical Ventilator Mechanical Ventilator 07/27/20 12:00 23 105/58 Mechanical Ventilator 45 07/27/20 12:00 23 105/58 Mechanical Ventilator 45 07/27/20 12:00 45 07/27/20 12:00 97 07/27/20 11:00 97 23 95/58 (70) 98 07/27/20 11:00 18 99/60 Mechanical Ventilator 45 07/27/20 11:00 18 99/60 Mechanical Ventilator 45 07/27/20 11:00 97 18 99/60 (73) 100 07/27/20 10:48 98 31 45 07/27/20 10:00 23 102/61 Mechanical Ventilator 45 07/27/20 10:00 23 102/61 Mechanical Ventilator 45 07/27/20 10:00 100 23 102/61 (75) 95 07/27/20 09:05 102 25 45 07/27/20 09:00 105 23 101/63 (76) 96 07/27/20 09:00 23 101/63 Mechanical Ventilator 45 07/27/20 09:00 23 101/63 Mechanical Ventilator 45 07/27/20 08:00 106 07/27/20 08:00 100.0 107 42 111/65 (80) 96 07/27/20 08:00 42 111/65 Mechanical Ventilator 45 07/27/20 08:00 42 111/65 Mechanical Ventilator 45 07/27/20 08:00 45 07/27/20 08:00 Mechanical Ventilator Mechanical Ventilator Mechanical Ventilator 07/27/20 07:45 30 101/63 Mechanical Ventilator 45 07/27/20 07:45 30 101/63 Mechanical Ventilator 45 07/27/20 07:30 105 23 101/63 (76) 96 3/6/21 07:00 100.5 104 29 97/65 (76) 96 07/27/20 07:00 29 97/65 Mechanical Ventilator 45 07/27/20 07:00 29 97/65 Mechanical Ventilator 45 07/27/20 06:45 105 30 45 07/27/20 06:30 106 28 101/51 (68) 96 07/27/20 06:30 107 30 Intake and Output 07/28/20 07/29/20 19:00 07:00 Intake Total 1848.888 ml 1761.25 ml Output Total 1250 ml 1055 ml Balance 598.888 ml 706.25 ml Free Water 100 ml 200 ml IV Total 908.888 ml 956.25 ml Tube Feeding 660 ml 605 ml Other 180 ml Output Urine Total 1100 ml 900 ml Chest Tube Drainage Total 150 ml 155 ml Labs Test 07/27/20 05:30 07/28/20 05:55 07/29/20 04:10 White Blood Count 10.3 K/UL (4.8-10.8) 11.8 K/UL (4.8-10.8) 11.7 K/UL (4.8-10.8) Red Blood Count 3.00 M/UL (4.20-5.40) 3.05 M/UL (4.20-5.40) 3.31 M/UL (4.20-5.40) Hemoglobin 8.5 G/DL (12.0-16.0) 8.8 G/DL (12.0-16.0) 9.5 G/DL (12.0-16.0) Hematocrit 28.3 % (37.0-47.0) 28.8 % (37.0-47.0) 31.7 % (37.0-47.0) Mean Corpuscular Volume 94 FL (80-99) 94 FL (80-99) 96 FL (80-99) Mean Corpuscular Hemoglobin 28.4 PG (27.0-31.0) 28.7 PG (27.0-31.0) 28.7 PG (27.0-31.0) Mean Corpuscular Hemoglobin Concent 30.1 G/DL (32.0-36.0) 30.4 G/DL (32.0-36.0) 30.0 G/DL (32.0-36.0) Red Cell Distribution Width 17.8 % (11.6-14.8) 17.6 % (11.6-14.8) 17.9 % (11.6-14.8) Platelet Count 267 K/UL (150-450) 257 K/UL (150-450) 295 K/UL (150-450) Mean Platelet Volume 7.7 FL (6.5-10.1) 7.7 FL (6.5-10.1) 8.2 FL (6.5-10.1) Neutrophils (%) (Auto) 51.4 % (45.0-75.0) 54.7 % (45.0-75.0) 49.2 % (45.0-75.0) Lymphocytes (%) (Auto) 31.7 % (20.0-45.0) 27.6 % (20.0-45.0) 28.1 % (20.0-45.0) Monocytes (%) (Auto) 8.5 % (1.0-10.0) 7.0 % (1.0-10.0) 5.3 % (1.0-10.0) Eosinophils (%) (Auto) 7.2 % (0.0-3.0) 9.8 % (0.0-3.0) 16.6 % (0.0-3.0) Basophils (%) (Auto) 1.2 % (0.0-2.0) 0.9 % (0.0-2.0) 0.9 % (0.0-2.0) Sodium Level 145 MMOL/L (136-145) 145 MMOL/L (136-145) 143 MMOL/L (136-145) Potassium Level 4.5 MMOL/L (3.5-5.1) 4.3 MMOL/L (3.5-5.1) 4.6 MMOL/L (3.5-5.1) Chloride Level 107 MMOL/L (98-107) 104 MMOL/L (98-107) 103 MMOL/L (98-107) Carbon Dioxide Level 35 MMOL/L (21-32) 38 MMOL/L (21-32) 39 MMOL/L (21-32) Anion Gap 3 mmol/L (5-15) 3 mmol/L (5-15) 1 mmol/L (5-15) Blood Urea Nitrogen 5 mg/dL (7-18) 4 mg/dL (7-18) 3 mg/dL (7-18) Creatinine 0.5 MG/DL (0.55-1.30) 0.4 MG/DL (0.55-1.30) 0.3 MG/DL (0.55-1.30) Estimat Glomerular Filtration Rate > 60 mL/min (>60) > 60 mL/min (>60) > 60 mL/min (>60) Glucose Level 116 MG/DL (74-106) 119 MG/DL (74-106) 128 MG/DL (74-106) Calcium Level 8.3 MG/DL (8.5-10.1) 8.1 MG/DL (8.5-10.1) 8.3 MG/DL (8.5-10.1) Total Bilirubin 0.6 MG/DL (0.2-1.0) 0.6 MG/DL (0.2-1.0) 0.5 MG/DL (0.2-1.0) Aspartate Amino Transf (AST/SGOT) 28 U/L (15-37) 21 U/L (15-37) 26 U/L (15-37) Alanine Aminotransferase (ALT/SGPT) 18 U/L (12-78) 16 U/L (12-78) 21 U/L (12-78) Alkaline Phosphatase 64 U/L (46-116) 65 U/L (46-116) 71 U/L (46-116) Total Protein 6.8 G/DL (6.4-8.2) 6.6 G/DL (6.4-8.2) 6.9 G/DL (6.4-8.2) Albumin 2.4 G/DL (3.4-5.0) 2.2 G/DL (3.4-5.0) 2.3 G/DL (3.4-5.0) Globulin 4.4 g/dL 4.4 g/dL 4.6 g/dL Albumin/Globulin Ratio 0.5 (1.0-2.7) 0.5 (1.0-2.7) 0.5 (1.0-2.7) Phosphorus Level 1.9 MG/DL (2.5-4.9) 2.8 MG/DL (2.5-4.9) Magnesium Level 1.5 MG/DL (1.8-2.4) 1.8 MG/DL (1.8-2.4) C-Reactive Protein, Quantitative 5.9 mg/dL (0.00-0.90) Pro-B-Type Natriuretic Peptide 489 pg/mL (0-125) Height (Feet): 5 Height (Inches): 5.00 Weight (Pounds): 223 Objective GeNL: nv HEENT: ngt++ Pulm: vent/trach++ CV: rrr Abd: soft, nt, nd ++gt Ext: no cce Myron Condon MD Jul 29, 2020 06:27
[2020-07-29] MEDS: fentaNYL 2500mcg/NS 250ml 250 ML IV SCH ×4 (06:46→21:45)
--- NOTE | 2020-07-29 07:26 | NUR ---
NURSE NOTES: Received report from RAKEL Brenner. Patient is sedated with RASS -2. ST 120s on the monitor. Febrile, tylenol given by previous nurse. Shiley 7 with vent setting ac 15, vt 400, peep 5 and fio2 45%. GT intact and running with glucerna 1.2 @55ml/hr. Lennon intact and draining wit light jordyn color urine. Left upper arm PICC intact, clean and running with fentanyl 150mcg/hr, versed 10mg/hr and d5ns @ 50ml/hr. Kept dry, clean and comfortable. Will continue plan of care.
[2020-07-29] MEDS: Docusate 100mg/10ml Liq NG SCH ×2 (08:21→17:10)
[2020-07-29] MEDS: Enoxaparin 120 mg inj SUBQ SCH ×2 (08:22→20:24)
--- NOTE | 2020-07-29 09:00 | General Progress Note ---
Subjective Constitutional: Reports: weakness Allergies: Coded Allergies: No Known Allergies (Unverified , 05/28/20) All Systems: reviewed and negative except above Subjective trach vent in icu Objective Last 24 Hour Vital Signs Date Time Temp Pulse Resp B/P (MAP) Pulse Ox O2 Delivery O2 Flow Rate FiO2 07/29/20 08:30 112 27 105/63 (77) 99 07/29/20 08:00 99.8 116 45 98/59 (72) 98 07/29/20 07:30 118 31 96/64 (75) 97 07/29/20 07:19 120 32 45 07/29/20 07:00 121 40 119/68 (85) 94 07/29/20 07:00 43 119/68 Mechanical Ventilator 45 07/29/20 07:00 43 119/68 Mechanical Ventilator 45 07/29/20 06:46 38 118/74 Mechanical Ventilator 45 07/29/20 06:46 100.3 07/29/20 06:00 100.1 127 45 130/66 (87) 89 07/29/20 06:00 46 130/66 Mechanical Ventilator 45 07/29/20 06:00 43 133/66 Mechanical Ventilator 45 07/29/20 05:45 125 56 120/50 (73) 100 07/29/20 05:30 127 46 117/71 (86) 84 07/29/20 05:15 123 50 115/80 (92) 85 07/29/20 05:00 99.7 122 45 126/107 (113) 86 07/29/20 05:00 43 115/80 Mechanical Ventilator 45 07/29/20 05:00 43 115/80 Mechanical Ventilator 45 07/29/20 04:45 121 37 123/71 (88) 82 07/29/20 04:30 119 32 118/77 (91) 91 07/29/20 04:15 118 33 125/86 (99) 93 07/29/20 04:00 33 106/75 Mechanical Ventilator 45 07/29/20 04:00 33 106/75 Mechanical Ventilator 45 07/29/20 04:00 Mechanical Ventilator Mechanical Ventilator Mechanical Ventilator 07/29/20 04:00 115 07/29/20 04:00 45 07/29/20 04:00 119 33 106/75 (85) 100 07/29/20 03:45 117 31 107/75 (86) 92 07/29/20 03:30 115 28 45 07/29/20 03:30 99.1 117 32 121/68 (85) 92 07/29/20 03:15 117 37 118/71 (87) 86 07/29/20 03:00 27 99/73 Mechanical Ventilator 45 07/29/20 03:00 27 99/73 Mechanical Ventilator 45 07/29/20 03:00 115 27 99/73 (82) 92 07/29/20 02:45 116 32 112/84 (93) 93 07/29/20 02:30 113 30 116/65 (82) 98 07/29/20 02:15 115 29 131/61 (84) 93 07/29/20 02:00 116 31 120/70 (87) 90 07/29/20 02:00 31 120/70 Mechanical Ventilator 45 07/29/20 02:00 31 120/70 Mechanical Ventilator 45 07/29/20 01:45 117 56 120/77 (91) 88 07/29/20 01:30 105 32 121/73 (89) 85 07/29/20 01:15 110 35 122/83 (96) 85 07/29/20 01:00 104 43 95/62 (73) 99 07/29/20 01:00 43 95/62 Mechanical Ventilator 45 07/29/20 01:00 43 95/62 Mechanical Ventilator 45 07/29/20 00:45 103 52 93/61 (72) 99 07/29/20 00:30 98.8 105 33 103/67 (79) 100 07/29/20 00:15 104 46 99/59 (72) 100 07/29/20 00:00 110 07/29/20 00:00 106 47 102/53 (69) 100 07/29/20 00:00 Mechanical Ventilator Mechanical Ventilator Mechanical Ventilator 07/29/20 00:00 36 103/67 Mechanical Ventilator 45 07/29/20 00:00 36 103/67 Mechanical Ventilator 45 07/28/20 23:45 107 54 105/61 (76) 100 07/28/20 23:30 108 26 45 07/28/20 23:30 109 51 105/66 (79) 98 07/28/20 23:15 110 42 102/54 (70) 97 07/28/20 23:00 38 113/58 Mechanical Ventilator 45 07/28/20 23:00 38 113/58 Mechanical Ventilator 45 07/28/20 23:00 99.2 110 19 113/58 (76) 100 07/28/20 22:45 110 26 102/69 (80) 99 07/28/20 22:42 30 113/61 Mechanical Ventilator 45 07/28/20 22:30 111 32 113/61 (78) 99 07/28/20 22:15 115 33 102/71 (81) 96 07/28/20 22:00 33 102/71 Mechanical Ventilator 45 07/28/20 22:00 33 102/71 Mechanical Ventilator 45 07/28/20 22:00 115 26 112/63 (79) 90 07/28/20 21:45 114 39 105/68 (80) 96 07/28/20 21:30 115 32 118/65 (82) 93 07/28/20 21:15 116 33 119/72 (88) 95 07/28/20 21:00 119 38 121/69 (86) 91 07/28/20 21:00 36 119/72 Mechanical Ventilator 45 07/28/20 21:00 36 119/72 Mechanical Ventilator 45 07/28/20 20:45 116 40 116/81 (93) 96 07/28/20 20:30 115 33 117/70 (86) 96 07/28/20 20:15 112 38 128/75 (92) 94 07/28/20 20:00 108 07/28/20 20:00 35 128/75 Mechanical Ventilator 45 07/28/20 20:00 35 128/75 Mechanical Ventilator 45 07/28/20 20:00 45 07/28/20 20:00 98.6 111 36 135/62 (86) 99 07/28/20 20:00 Mechanical Ventilator Mechanical Ventilator Mechanical Ventilator 07/28/20 19:45 109 48 133/71 (91) 94 07/28/20 19:30 109 41 45 07/28/20 19:30 112 35 138/79 (98) 90 07/28/20 19:30 37 133/71 Mechanical Ventilator 45 07/28/20 19:30 37 133/71 Mechanical Ventilator 45 07/28/20 19:15 110 42 144/86 (105) 89 07/28/20 19:00 111 39 128/77 (94) 92 07/28/20 18:00 32 118/68 Mechanical Ventilator 45 07/28/20 18:00 32 118/68 Mechanical Ventilator 45 07/28/20 18:00 106 31 100/60 (73) 95 07/28/20 17:03 95 24 45 07/28/20 17:00 98.9 107 37 113/89 (97) 93 07/28/20 17:00 30 91/59 Mechanical Ventilator 45 07/28/20 17:00 30 91/59 Mechanical Ventilator 45 07/28/20 16:00 45 07/28/20 16:00 95 31 88/54 (65) 100 07/28/20 16:00 94 07/28/20 16:00 30 93/66 Mechanical Ventilator 45 07/28/20 16:00 30 93/66 Mechanical Ventilator 45 07/28/20 16:00 Mechanical Ventilator Mechanical Ventilator Mechanical Ventilator 07/28/20 15:00 95 35 101/59 (73) 100 07/28/20 15:00 17 101/59 Mechanical Ventilator 45 07/28/20 15:00 17 101/59 Mechanical Ventilator 45 07/28/20 14:43 97 23 45 07/28/20 14:00 77 17 105/61 (76) 100 07/28/20 14:00 27 98/68 Mechanical Ventilator 45 07/28/20 14:00 27 98/68 Mechanical Ventilator 45 07/28/20 13:00 18 101/64 Mechanical Ventilator 45 07/28/20 13:00 17 101/64 Mechanical Ventilator 45 07/28/20 13:00 106 26 99/61 (74) 92 07/28/20 12:43 103 27 45 07/28/20 12:00 102 07/28/20 12:00 99 34 94/60 (71) 100 07/28/20 12:00 45 07/28/20 12:00 30 94/59 Mechanical Ventilator 45 07/28/20 12:00 30 94/59 Mechanical Ventilator 45 07/28/20 12:00 Mechanical Ventilator Mechanical Ventilator Mechanical Ventilator 07/28/20 12:00 99.4 07/28/20 11:18 104 25 45 07/28/20 11:00 102 30 100/52 (68) 99 07/28/20 11:00 30 93/55 Mechanical Ventilator 45 07/28/20 11:00 30 93/58 Mechanical Ventilator 45.0 07/28/20 10:00 30 94/49 Mechanical Ventilator 45 3/7/21 10:00 30 94/49 Mechanical Ventilator 45 07/28/20 10:00 104 29 88/64 (72) 100 07/28/20 09:10 99 27 45 07/28/20 09:04 31 108/71 Mechanical Ventilator 45 07/28/20 09:04 31 108/71 Mechanical Ventilator 45 07/28/20 09:00 106 29 118/62 (80) 100 Intake and Output 07/28/20 07/29/20 19:00 07:00 Intake Total 1848.888 ml 1846.25 ml Output Total 1250 ml 1055 ml Balance 598.888 ml 791.25 ml Free Water 100 ml 200 ml IV Total 908.888 ml 1041.25 ml Tube Feeding 660 ml 605 ml Other 180 ml Output Urine Total 1100 ml 900 ml Chest Tube Drainage Total 150 ml 155 ml Laboratory Tests 07/29/20 04:10: White Blood Count 11.7H, Red Blood Count 3.31L, Hemoglobin 9.5L, Hematocrit 31.7L, Mean Corpuscular Volume 96, Mean Corpuscular Hemoglobin 28.7, Mean Corpuscular Hemoglobin Concent 30.0L, Red Cell Distribution Width 17.9H, Platelet Count 295, Mean Platelet Volume 8.2, Neutrophils (%) (Auto) 49.2, Lymphocytes (%) (Auto) 28.1, Monocytes (%) (Auto) 5.3, Eosinophils (%) (Auto) 16.6H, Basophils (%) (Auto) 0.9, Sodium Level 143, Potassium Level 4.6, Chloride Level 103, Carbon Dioxide Level 39H, Anion Gap 1L, Blood Urea Nitrogen 3L, Creatinine 0.3L, Estimat Glomerular Filtration Rate > 60, Glucose Level 128H, Calcium Level 8.3L, Phosphorus Level 2.8, Magnesium Level 1.8, Total Bilirubin 0.5, Aspartate Amino Transf (AST/SGOT) 26, Alanine Aminotransferase (ALT/SGPT) 21, Alkaline Phosphatase 71, C-Reactive Protein, Quantitative 5.9H, Pro-B-Type Natriuretic Peptide 489H, Total Protein 6.9, Albumin 2.3L, Globulin 4.6, Albumin/Globulin Ratio 0.5L Height (Feet): 5 Height (Inches): 5.00 Weight (Pounds): 223 General Appearance: lethargic EENT: normal ENT inspection Neck: normal alignment Cardiovascular: normal peripheral pulses, normal rate, regular rhythm Respiratory/Chest: chest wall non-tender, lungs clear, normal breath sounds Abdomen: normal bowel sounds, non tender, soft Extremities: normal inspection Edema: 1+ Arm (L), 1+ Arm (R), 1+ Leg (L), 1+ Leg (R), 1+ Pedal (L), 1+ Pedal (R), 1+ Generalized Edema: trace edema Neurologic: motor weakness Skin: normal pigmentation, warm/dry Assessment/Plan Problem List: (1) Hypoxia ICD Codes: R09.02 - Hypoxemia SNOMED: 354008821 (2) Respiratory failure ICD Codes: J96.90 - Respiratory failure, unspecified, unspecified whether with hypoxia or hypercapnia SNOMED: 442768192 (3) Respiratory distress ICD Codes: R06.03 - Acute respiratory distress; J12.82 - Pneumonia due to coronavirus disease 2019 SNOMED: 936824761 (4) Pneumonia due to COVID-19 virus ICD Codes: U07.1 - COVID-19; J12.82 - Pneumonia due to coronavirus disease 2018 SNOMED: [id number] Status: unchanged Assessment/Plan: vent abx id pulm f/u cbc bmp am ltach Tank Cheng DO Jul 29, 2020 09:00
--- NOTE | 2020-07-29 09:24 | NUR ---
NURSE NOTES: Seen by Vamshi Garcia NP and assessed patient. Updated patient's condition. NNO at this time.
--- NOTE | 2020-07-29 10:20 | Nephrology Progress Note ---
Assessment/Plan Problem List: (1) DEVENDRA (acute kidney injury) (2) Morbid obesity (3) Diabetes mellitus out of control (4) Pneumonia due to COVID-19 virus (5) Respiratory failure Assessment Acute renal failure Obstructive uropathy, clogged [place] Respiratory failure COVID-19 pneumonia Morbid obesity Plan July 29: Status quo. Discussed with RN. Labs and medication list reviewed. Stable from renal standpoint of view. July 28: Full code. Labs reviewed. Abnormal electrolytes addressed. Medication list reviewed. Patient has trach and PEG and on ventilator. Continue per consultants. July 27: Full code. In ICU. Trach to vent. Labs reviewed. Renal parameters and electrolytes stable. July 26: Remains in ICU. Remains full code. Trach to vent. Labs reviewed. Abnormal electrolytes addressed. Continue per consultants. July 25: Seen in ICU. Received PEG yesterday. Has trach connected to vent. Full code. Labs reviewed. Albumin bolus given. IV started on table feeding via GT tube initiated. July 24: Patient seen in ICU. Status quo. Has trach. Being ventilated. Has right chest tube. Labs reviewed. Continue per consultants. Low magnesium and low phosphorus replaced. July 23: Patient seen in ICU. Discussed with RN. Yesterday the patient developed tension pneumothorax. Patient has a chest tube today. Labs reviewed. Renal parameters stable. Medication list reviewed. July 22: Status quo. Labs reviewed. Serum calcium elevated. Vitamin D discontinued. Pamidronate 60 mg IV given. Continue to monitor calcium and phosphorus. Patient due for PEG today. July 21: Status quo. Awake responsive. Labs reviewed. Medication list reviewed. Stable from renal standpoint of view. Due for PEG tomorrow. Continue her current management. July 20: Status quo. PEG procedure deferred to July 22. Patient remains full code. Abnormal electrolytes addressed. FiO2 50% unchanged. Continue per consultants. July 19: Status quo. Due for PEG insertion today. Remains full code. Trach and vent. Low magnesium addressed. Continue per consultants. FiO2 50%. July 18: Status quo. Labs reviewed. Low potassium addressed. Continue per consultants. Remains full code. July 17: Remains full code. Trach to vent. FiO2 40%. Labs reviewed. Low potassium addressed. Continue per consultants. July 16: Status quo. FiO2 45%. Discussed with RN. Continue to taper her mind altering medications and sedatives. Stable from renal standpoint of view. Abnormal electrolytes addressed. July 15: Full code. FiO2 50%. Intubated on ventilator. No labs drawn today. Continue per consultants. July 14: Status quo. FiO2 50%. Labs reviewed. Renal parameters stable. Continue per current treatment plan and consultants. Medication list reviewed. July 13: FiO2 60% unchanged. Labs reviewed. Renal parameters stable. Medication list reviewed. Continue per consultants. July 12: Full code. Labs reviewed. Normal electrolytes addressed. Continue per pulmonary. Medication list reviewed. July 11: Remains full code. On ventilator. FiO2 down to 65%. Renal parameters stable. Low magnesium addressed. Continue her current management. July 10: Full code. On ventilator. FiO2 70%. Hemoglobin mid sevens. Renal parameters stable. Continue per consultants. July 09: Labs reviewed. Renal parameters stable. FiO2 80% unchanged. Continue per pulmonary. July 08: Labs reviewed. Renal parameters and electrolytes stable. ABG suggestive of high PCO2. At this time patient is on FiO2 of 80%. Continue per pulmonary. Continue to monitor renal parameters. July 07: No CHEM panel drawn today. More potassium given. Continue to monitor renal parameters. Continue per consultants. Discussed with RAKEL Veras. July 06: Low potassium addressed. Albumin bolus for low BP given. Patient remains full code. Continue to monitor electrolytes and renal parameters. Continue per consultants. 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 July 05: Trach to vent. FiO2 80%. Renal parameters stable. PCO2 remains high at 44. Continue to monitor renal parameters. July 04: Patient now trach. Full code. Labs reviewed. Renal parameters stable. Low magnesium addressed. July 03: Intubated. Full code. Labs reviewed. Abnormal electrolytes addressed. Continue per consultants. Overall status unchanged. July 02: Remains intubated. Remains full code. Remains on FiO2 of 70%. Labs reviewed. Abnormal electrolytes addressed. Continue per pulmonary. July 01: Remains on 70% FiO2. Full code. Intubated on ventilator. Retaining CO2. Discussed with RN. Will do ABG today. Albumin bolus given. 1 dose of Diamox given. June 30: Status quo. Labs reviewed. Abnormal electrolytes addressed. Remains full code. Remains on ventilator. Magnesium sulfate 4 gram IVPB given. June 29: Full code. Intubated on ventilator. Labs reviewed. Stable from renal standpoint of view. Continue per consultants. June 28: Remains full code. Remains intubated on ventilator. Labs reviewed. Vitamin D supplement ordered. Continue to monitor renal parameters. Continue per consultants. June 27: Remains full code. Intubated on ventilator. Labs reviewed. Abnormal electrolyte addressed. Continue to monitor renal parameters and electrolytes. Continue per consultants. June 26: Labs reviewed. Remains full code. Remains intubated. Back on NGT feeding. Continue to monitor renal parameters. June 25: Labs reviewed. Renal parameters stable. Remains full code. Due to positional status patient could not be fed via NG tube. Starting TPN? Is being entertained. Continue per consultants. June 24: Labs reviewed. Renal parameters stable. Remains full code. Remains intubated on ventilator. Continue per consultants. June 23: Labs reviewed. Renal parameters stable. Discussed with RAKEL. Abnorm al electrolyte addressed. Remains full code. Remains on ventilator. Continue per consultants. June 22: Labs reviewed. Low potassium addressed. Discussed with RAKEL Moran. Patient full code. Remains on ventilator. Continue to monitor renal paramete rs. June 21. Labs reviewed. Abnormal electrolyte addressed. Full code. Remains on ventilator. Medication list reviewed. Continue per pulmonary management. DC IV fluid, resume Lasix daily, check chest x-ray. June 20: Labs reviewed. Abnormal electrolytes. Patient remains full code. Continue per consultants. Noted and addressed June 19: Labs reviewed. Abnormal electrolytes noted and addressed. Remains intubated on ventilator. Remains full code. June 18: Labs reviewed. Remains intubated on ventilator. Full code. Abnormal electrolyte addressed. Continue as is. June 17: Labs reviewed. Abnormal electrolytes addressed. Patient remains full code and intubated on ventilator. Continue per consultants. Renal parameters are within normal limits. June 16: Labs reviewed. Potassium chloride replaced. Remains full code. Remains intubated on ventilator. Continue per consultants. Continue to monitor renal parameters. June 15: Labs reviewed. Serum creatinine 1. Stable from renal standpoint to view. Continue per consultants. June 14: Labs reviewed. Full code. Serum creatinine of 3.5 down to 1.4. Lo w potassium addressed. Continue per current treatment plan. Continue to monitor renal parameters. Midodrine started. Albumin bolus given. Previously: DC Lasix drip Increase Protonix dose Monitor renal parameters, electrolytes Per orders Subjective ROS Limited/Unobtainable: Yes Objective Objective Last 24 Hour Vital Signs Date Time Temp Pulse Resp B/P (MAP) Pulse Ox O2 Delivery O2 Flow Rate FiO2 07/29/20 09:16 112 28 45 07/29/20 08:30 112 27 105/63 (77) 99 07/29/20 08:00 45 07/29/20 08:00 99.8 116 45 98/59 (72) 98 07/29/20 08:00 Mechanical Ventilator Mechanical Ventilator Mechanical Ventilator 07/29/20 07:30 118 31 96/64 (75) 97 07/29/20 07:19 120 32 45 07/29/20 07:00 121 40 119/68 (85) 94 07/29/20 07:00 43 119/68 Mechanical Ventilator 45 07/29/20 07:00 43 119/68 Mechanical Ventilator 45 07/29/20 06:46 38 118/74 Mechanical Ventilator 45 07/29/20 06:46 100.3 07/29/20 06:00 100.1 127 45 130/66 (87) 89 07/29/20 06:00 46 130/66 Mechanical Ventilator 45 07/29/20 06:00 43 133/66 Mechanical Ventilator 45 07/29/20 05:45 125 56 120/50 (73) 100 07/29/20 05:30 127 46 117/71 (86) 84 07/29/20 05:15 123 50 115/80 (92) 85 07/29/20 05:00 99.7 122 45 126/107 (113) 86 07/29/20 05:00 43 115/80 Mechanical Ventilator 45 07/29/20 05:00 43 115/80 Mechanical Ventilator 45 07/29/20 04:45 121 37 123/71 (88) 82 07/29/20 04:30 119 32 118/77 (91) 91 07/29/20 04:15 118 33 125/86 (99) 93 07/29/20 04:00 33 106/75 Mechanical Ventilator 45 07/29/20 04:00 33 106/75 Mechanical Ventilator 45 07/29/20 04:00 Mechanical Ventilator Mechanical Ventilator Mechanical Ventilator 07/29/20 04:00 115 07/29/20 04:00 45 07/29/20 04:00 119 33 106/75 (85) 100 07/29/20 03:45 117 31 107/75 (86) 92 07/29/20 03:30 115 28 45 07/29/20 03:30 99.1 117 32 121/68 (85) 92 07/29/20 03:15 117 37 118/71 (87) 86 07/29/20 03:00 27 99/73 Mechanical Ventilator 45 07/29/20 03:00 27 99/73 Mechanical Ventilator 45 07/29/20 03:00 115 27 99/73 (82) 92 07/29/20 02:45 116 32 112/84 (93) 93 07/29/20 02:30 113 30 116/65 (82) 98 07/29/20 02:15 115 29 131/61 (84) 93 07/29/20 02:00 116 31 120/70 (87) 90 07/29/20 02:00 31 120/70 Mechanical Ventilator 45 07/29/20 02:00 31 120/70 Mechanical Ventilator 45 07/29/20 01:45 117 56 120/77 (91) 88 07/29/20 01:30 105 32 121/73 (89) 85 07/29/20 01:15 110 35 122/83 (96) 85 07/29/20 01:00 104 43 95/62 (73) 99 07/29/20 01:00 43 95/62 Mechanical Ventilator 45 07/29/20 01:00 43 95/62 Mechanical Ventilator 45 07/29/20 00:45 103 52 93/61 (72) 99 07/29/20 00:30 98.8 105 33 103/67 (79) 100 07/29/20 00:15 104 46 99/59 (72) 100 07/29/20 00:00 110 07/29/20 00:00 106 47 102/53 (69) 100 07/29/20 00:00 Mechanical Ventilator Mechanical Ventilator Mechanical Ventilator 07/29/20 00:00 36 103/67 Mechanical Ventilator 45 07/29/20 00:00 36 103/67 Mechanical Ventilator 45 07/28/20 23:45 107 54 105/61 (76) 100 07/28/20 23:30 108 26 45 07/28/20 23:30 109 51 105/66 (79) 98 07/28/20 23:15 110 42 102/54 (70) 97 07/28/20 23:00 38 113/58 Mechanical Ventilator 45 07/28/20 23:00 38 113/58 Mechanical Ventilator 45 07/28/20 23:00 99.2 110 19 113/58 (76) 100 07/28/20 22:45 110 26 102/69 (80) 99 07/28/20 22:42 30 113/61 Mechanical Ventilator 45 07/28/20 22:30 111 32 113/61 (78) 99 07/28/20 22:15 115 33 102/71 (81) 96 07/28/20 22:00 33 102/71 Mechanical Ventilator 45 07/28/20 22:00 33 102/71 Mechanical Ventilator 45 07/28/20 22:00 115 26 112/63 (79) 90 07/28/20 21:45 114 39 105/68 (80) 96 07/28/20 21:30 115 32 118/65 (82) 93 07/28/20 21:15 116 33 119/72 (88) 95 07/28/20 21:00 119 38 121/69 (86) 91 07/28/20 21:00 36 119/72 Mechanical Ventilator 45 07/28/20 21:00 36 119/72 Mechanical Ventilator 45 07/28/20 20:45 116 40 116/81 (93) 96 07/28/20 20:30 115 33 117/70 (86) 96 07/28/20 20:15 112 38 128/75 (92) 94 07/28/20 20:00 108 07/28/20 20:00 35 128/75 Mechanical Ventilator 45 07/28/20 20:00 35 128/75 Mechanical Ventilator 45 07/28/20 20:00 45 07/28/20 20:00 98.6 111 36 135/62 (86) 99 07/28/20 20:00 Mechanical Ventilator Mechanical Ventilator Mechanical Ventilator 07/28/20 19:45 109 48 133/71 (91) 94 07/28/20 19:30 109 41 45 07/28/20 19:30 112 35 138/79 (98) 90 07/28/20 19:30 37 133/71 Mechanical Ventilator 45 07/28/20 19:30 37 133/71 Mechanical Ventilator 45 07/28/20 19:15 110 42 144/86 (105) 89 07/28/20 19:00 111 39 128/77 (94) 92 07/28/20 18:00 32 118/68 Mechanical Ventilator 45 07/28/20 18:00 32 118/68 Mechanical Ventilator 45 07/28/20 18:00 106 31 100/60 (73) 95 07/28/20 17:03 95 24 45 07/28/20 17:00 98.9 107 37 113/89 (97) 93 07/28/20 17:00 30 91/59 Mechanical Ventilator 45 07/28/20 17:00 30 91/59 Mechanical Ventilator 45 07/28/20 16:00 45 07/28/20 16:00 95 31 88/54 (65) 100 07/28/20 16:00 94 07/28/20 16:00 30 93/66 Mechanical Ventilator 45 07/28/20 16:00 30 93/66 Mechanical Ventilator 45 07/28/20 16:00 Mechanical Ventilator Mechanical Ventilator Mechanical Ventilator 07/28/20 15:00 95 35 101/59 (73) 100 07/28/20 15:00 17 101/59 Mechanical Ventilator 45 07/28/20 15:00 17 101/59 Mechanical Ventilator 45 07/28/20 14:43 97 23 45 07/28/20 14:00 77 17 105/61 (76) 100 07/28/20 14:00 27 98/68 Mechanical Ventilator 45 07/28/20 14:00 27 98/68 Mechanical Ventilator 45 07/28/20 13:00 18 101/64 Mechanical Ventilator 45 07/28/20 13:00 17 101/64 Mechanical Ventilator 45 07/28/20 13:00 106 26 99/61 (74) 92 07/28/20 12:43 103 27 45 07/28/20 12:00 102 07/28/20 12:00 99 34 94/60 (71) 100 07/28/20 12:00 45 07/28/20 12:00 30 94/59 Mechanical Ventilator 45 07/28/20 12:00 30 94/59 Mechanical Ventilator 45 07/28/20 12:00 Mechanical Ventilator Mechanical Ventilator Mechanical Ventilator 07/28/20 12:00 99.4 07/28/20 11:18 104 25 45 07/28/20 11:00 102 30 100/52 (68) 99 07/28/20 11:00 30 93/55 Mechanical Ventilator 45 07/28/20 11:00 30 93/58 Mechanical Ventilator 45.0 Intake and Output 07/28/20 07/29/20 19:00 07:00 Intake Total 1848.888 ml 1846.25 ml Output Total 1250 ml 1055 ml Balance 598.888 ml 791.25 ml Free Water 100 ml 200 ml IV Total 908.888 ml 1041.25 ml Tube Feeding 660 ml 605 ml Other 180 ml Output Urine Total 1100 ml 900 ml Chest Tube Drainage Total 150 ml 155 ml Current Medications Medications (Trade) Dose Ordered Sig/Zelda Route PRN Reason Start Time Stop Time Status Last Admin Dose Admin Acetaminophen (Tylenol) 650 mg Q4H PRN NG Temp >100.5 07/27/20 03:45 08/26/20 03:44 07/29/20 06:08 Calcitonin [place] (Miacalcin) 1 sprays DAILY NASAL 07/22/20 14:00 10/20/20 13:59 07/29/20 08:21 Chlorhexidine Gluconate (Inna-Hex 2%) 1 applic DAILY@2000 TOPIC 07/20/20 20:00 10/18/20 19:59 07/28/20 19:45 Dextrose (Dextrose 50%) 25 ml Q30M PRN IV Hypoglycemia 06/05/20 10:45 09/03/20 10:44 Dextrose (Dextrose 50%) 50 ml Q30M PRN IV Hypoglycemia 06/05/20 10:45 09/03/20 10:44 Dextrose/Sodium Chloride 1,000 ml @ 50 mls/hr Q20H IV 07/25/20 11:15 08/24/20 11:14 07/28/20 17:25 Docusate Sodium (Colace) 100 mg TWICE A DAY NG 07/26/20 18:00 08/25/20 17:59 07/29/20 08:21 Enoxaparin Sodium (Lovenox) 110 mg EVERY 12 HOURS SUBQ 07/17/20 21:00 10/15/20 20:59 07/29/20 08:22 Guaifenesin/ Codeine Phosphate (Robitussin with codeine) 5 ml Q6H PRN NG For Cough 07/14/20 14:15 08/13/20 14:14 07/18/20 21:44 Lansoprazole (Prevacid) 30 mg DAILY GT 07/18/20 09:00 08/09/20 08:59 07/29/20 08:20 Meropenem 1 gm/ Sodium Chloride 55 ml @ 110 mls/hr Q8H IVPB 07/22/20 12:00 08/02/20 11:59 07/29/20 04:00 Midazolam HCl 200 ml @ 0 mls/hr Q24H PRN IV sedation 07/22/20 14:06 07/29/20 14:05 07/28/20 22:42 Midodrine (Pro-Amatine) 10 mg Q8HR GT 06/30/20 14:00 09/12/20 13:59 07/29/20 06:05 Polyethylene Glycol (Miralax) 17 gm BEDTIME ORAL 07/26/20 21:00 08/25/20 20:59 07/28/20 21:00 Quetiapine Fumarate (SEROqueL) 50 mg Q12HR GT 07/16/20 13:30 08/30/20 13:29 07/29/20 08:21 Laboratory Tests 07/29/20 04:10: White Blood Count 11.7H, Red Blood Count 3.31L, Hemoglobin 9.5L, Hematocrit 31.7L, Mean Corpuscular Volume 96, Mean Corpuscular Hemoglobin 28.7, Mean Corpuscular Hemoglobin Concent 30.0L, Red Cell Distribution Width 17.9H, Platelet Count 295, Mean Platelet Volume 8.2, Neutrophils (%) (Auto) 49.2, Lymphocytes (%) (Auto) 28.1, Monocytes (%) (Auto) 5.3, Eosinophils (%) (Auto) 16.6H, Basophils (%) (Auto) 0.9, Sodium Level 143, Potassium Level 4.6, Chloride Level 103, Carbon Dioxide Level 39H, Anion Gap 1L, Blood Urea Nitrogen 3L, Creatinine 0.3L, Estimat Glomerular Filtration Rate > 60, Glucose Level 128H, Calcium Level 8.3L, Phosphorus Level 2.8, Magnesium Level 1.8, Total Bilirubin 0.5, Aspartate Amino Transf (AST/SGOT) 26, Alanine Aminotransferase (ALT/SGPT) 21, Alkaline Phosphatase 71, C-Reactive Protein, Quantitative 5.9H, Pro-B-Type Natriuretic Peptide 489H, Total Protein 6.9, Albumin 2.3L, Globulin 4.6, Albumin/Globulin Ratio 0.5L Height (Feet): 5 Height (Inches): 5.00 Weight (Pounds): 223 General Appearance: no apparent distress EENT: other - Trach to vent Cardiovascular: tachycardia Respiratory/Chest: decreased breath sounds Abdomen: distended, other - PEG Rigo Tyler MD Jul 29, 2020 10:20
--- NOTE | 2020-07-29 11:00 | NUR ---
NURSE NOTES: Dr. Devine removed chest tube.
--- NOTE | 2020-07-29 11:17 | Infectious Diseases Prog Note ---
Assessment/Plan Assessment/Plan antibiotics : meropenem A 1. covid 19 pneumonia s/p remdesivir s/p solumedrol 2. respiratory failure s/p tracheostomy 3. pseudomonas pneumonia 4. leucocytosis improving 5. SBO 6, pneumothorax s/p CT placement P 1. continue meropenem 2 more days 2. will follow up cultures Subjective ROS Limited/Unobtainable: Yes Allergies: Coded Allergies: No Known Allergies (Unverified , 05/28/20) Objective Last 24 Hour Vital Signs Date Time Temp Pulse Resp B/P (MAP) Pulse Ox O2 Delivery O2 Flow Rate FiO2 07/29/20 11:12 105 23 45 07/29/20 09:16 112 28 45 07/29/20 08:30 112 27 105/63 (77) 99 07/29/20 08:00 45 07/29/20 08:00 99.8 116 45 98/59 (72) 98 07/29/20 08:00 Mechanical Ventilator Mechanical Ventilator Mechanical Ventilator 07/29/20 07:30 118 31 96/64 (75) 97 07/29/20 07:19 120 32 45 07/29/20 07:00 121 40 119/68 (85) 94 07/29/20 07:00 43 119/68 Mechanical Ventilator 45 07/29/20 07:00 43 119/68 Mechanical Ventilator 45 07/29/20 06:46 38 118/74 Mechanical Ventilator 45 07/29/20 06:46 100.3 07/29/20 06:00 100.1 127 45 130/66 (87) 89 07/29/20 06:00 46 130/66 Mechanical Ventilator 45 07/29/20 06:00 43 133/66 Mechanical Ventilator 45 07/29/20 05:45 125 56 120/50 (73) 100 07/29/20 05:30 127 46 117/71 (86) 84 07/29/20 05:15 123 50 115/80 (92) 85 07/29/20 05:00 99.7 122 45 126/107 (113) 86 07/29/20 05:00 43 115/80 Mechanical Ventilator 45 07/29/20 05:00 43 115/80 Mechanical Ventilator 45 07/29/20 04:45 121 37 123/71 (88) 82 07/29/20 04:30 119 32 118/77 (91) 91 07/29/20 04:15 118 33 125/86 (99) 93 07/29/20 04:00 33 106/75 Mechanical Ventilator 45 07/29/20 04:00 33 106/75 Mechanical Ventilator 45 07/29/20 04:00 Mechanical Ventilator Mechanical Ventilator Mechanical Ventilator 07/29/20 04:00 115 07/29/20 04:00 45 07/29/20 04:00 119 33 106/75 (85) 100 07/29/20 03:45 117 31 107/75 (86) 92 07/29/20 03:30 115 28 45 07/29/20 03:30 99.1 117 32 121/68 (85) 92 07/29/20 03:15 117 37 118/71 (87) 86 07/29/20 03:00 27 99/73 Mechanical Ventilator 45 07/29/20 03:00 27 99/73 Mechanical Ventilator 45 07/29/20 03:00 115 27 99/73 (82) 92 07/29/20 02:45 116 32 112/84 (93) 93 07/29/20 02:30 113 30 116/65 (82) 98 07/29/20 02:15 115 29 131/61 (84) 93 07/29/20 02:00 116 31 120/70 (87) 90 07/29/20 02:00 31 120/70 Mechanical Ventilator 45 07/29/20 02:00 31 120/70 Mechanical Ventilator 45 07/29/20 01:45 117 56 120/77 (91) 88 07/29/20 01:30 105 32 121/73 (89) 85 07/29/20 01:15 110 35 122/83 (96) 85 07/29/20 01:00 104 43 95/62 (73) 99 07/29/20 01:00 43 95/62 Mechanical Ventilator 45 07/29/20 01:00 43 95/62 Mechanical Ventilator 45 07/29/20 00:45 103 52 93/61 (72) 99 07/29/20 00:30 98.8 105 33 103/67 (79) 100 07/29/20 00:15 104 46 99/59 (72) 100 07/29/20 00:00 110 07/29/20 00:00 106 47 102/53 (69) 100 07/29/20 00:00 Mechanical Ventilator Mechanical Ventilator Mechanical Ventilator 07/29/20 00:00 36 103/67 Mechanical Ventilator 45 07/29/20 00:00 36 103/67 Mechanical Ventilator 45 07/28/20 23:45 107 54 105/61 (76) 100 07/28/20 23:30 108 26 45 07/28/20 23:30 109 51 105/66 (79) 98 07/28/20 23:15 110 42 102/54 (70) 97 07/28/20 23:00 38 113/58 Mechanical Ventilator 45 07/28/20 23:00 38 113/58 Mechanical Ventilator 45 07/28/20 23:00 99.2 110 19 113/58 (76) 100 07/28/20 22:45 110 26 102/69 (80) 99 07/28/20 22:42 30 113/61 Mechanical Ventilator 45 07/28/20 22:30 111 32 113/61 (78) 99 07/28/20 22:15 115 33 102/71 (81) 96 07/28/20 22:00 33 102/71 Mechanical Ventilator 45 07/28/20 22:00 33 102/71 Mechanical Ventilator 45 07/28/20 22:00 115 26 112/63 (79) 90 07/28/20 21:45 114 39 105/68 (80) 96 07/28/20 21:30 115 32 118/65 (82) 93 07/28/20 21:15 116 33 119/72 (88) 95 07/28/20 21:00 119 38 121/69 (86) 91 07/28/20 21:00 36 119/72 Mechanical Ventilator 45 07/28/20 21:00 36 119/72 Mechanical Ventilator 45 07/28/20 20:45 116 40 116/81 (93) 96 07/28/20 20:30 115 33 117/70 (86) 96 07/28/20 20:15 112 38 128/75 (92) 94 07/28/20 20:00 108 07/28/20 20:00 35 128/75 Mechanical Ventilator 45 07/28/20 20:00 35 128/75 Mechanical Ventilator 45 07/28/20 20:00 45 07/28/20 20:00 98.6 111 36 135/62 (86) 99 07/28/20 20:00 Mechanical Ventilator Mechanical Ventilator Mechanical Ventilator 07/28/20 19:45 109 48 133/71 (91) 94 07/28/20 19:30 109 41 45 07/28/20 19:30 112 35 138/79 (98) 90 07/28/20 19:30 37 133/71 Mechanical Ventilator 45 07/28/20 19:30 37 133/71 Mechanical Ventilator 45 07/28/20 19:15 110 42 144/86 (105) 89 07/28/20 19:00 111 39 128/77 (94) 92 07/28/20 18:00 32 118/68 Mechanical Ventilator 45 07/28/20 18:00 32 118/68 Mechanical Ventilator 45 07/28/20 18:00 106 31 100/60 (73) 95 07/28/20 17:03 95 24 45 07/28/20 17:00 98.9 107 37 113/89 (97) 93 07/28/20 17:00 30 91/59 Mechanical Ventilator 45 07/28/20 17:00 30 91/59 Mechanical Ventilator 45 07/28/20 16:00 45 07/28/20 16:00 95 31 88/54 (65) 100 07/28/20 16:00 94 07/28/20 16:00 30 93/66 Mechanical Ventilator 45 07/28/20 16:00 30 93/66 Mechanical Ventilator 45 07/28/20 16:00 Mechanical Ventilator Mechanical Ventilator Mechanical Ventilator 07/28/20 15:00 95 35 101/59 (73) 100 07/28/20 15:00 17 101/59 Mechanical Ventilator 45 07/28/20 15:00 17 101/59 Mechanical Ventilator 45 07/28/20 14:43 97 23 45 07/28/20 14:00 77 17 105/61 (76) 100 07/28/20 14:00 27 98/68 Mechanical Ventilator 45 07/28/20 14:00 27 98/68 Mechanical Ventilator 45 07/28/20 13:00 18 101/64 Mechanical Ventilator 45 07/28/20 13:00 17 101/64 Mechanical Ventilator 45 07/28/20 13:00 106 26 99/61 (74) 92 07/28/20 12:43 103 27 45 07/28/20 12:00 102 07/28/20 12:00 99 34 94/60 (71) 100 07/28/20 12:00 45 07/28/20 12:00 30 94/59 Mechanical Ventilator 45 07/28/20 12:00 30 94/59 Mechanical Ventilator 45 07/28/20 12:00 Mechanical Ventilator Mechanical Ventilator Mechanical Ventilator 07/28/20 12:00 99.4 07/28/20 11:18 104 25 45 Height (Feet): 5 Height (Inches): 5.00 Weight (Pounds): 223 HEENT: status post trach Respiratory/Chest: lungs clear Cardiovascular: normal rate, regular rhythm, no gallop/murmur Abdomen: soft, non tender Extremities: other - + edema Laboratory Tests Test 07/29/20 04:10 White Blood Count 11.7 K/UL (4.8-10.8) H Red Blood Count 3.31 M/UL (4.20-5.40) L Hemoglobin 9.5 G/DL (12.0-16.0) L Hematocrit 31.7 % (37.0-47.0) L Mean Corpuscular Volume 96 FL (80-99) Mean Corpuscular Hemoglobin 28.7 PG (27.0-31.0) Mean Corpuscular Hemoglobin Concent 30.0 G/DL (32.0-36.0) L Red Cell Distribution Width 17.9 % (11.6-14.8) H Platelet Count 295 K/UL (150-450) Mean Platelet Volume 8.2 FL (6.5-10.1) Neutrophils (%) (Auto) 49.2 % (45.0-75.0) Lymphocytes (%) (Auto) 28.1 % (20.0-45.0) Monocytes (%) (Auto) 5.3 % (1.0-10.0) Eosinophils (%) (Auto) 16.6 % (0.0-3.0) H Basophils (%) (Auto) 0.9 % (0.0-2.0) Sodium Level 143 MMOL/L (136-145) Potassium Level 4.6 MMOL/L (3.5-5.1) Chloride Level 103 MMOL/L (98-107) Carbon Dioxide Level 39 MMOL/L (21-32) H Anion Gap 1 mmol/L (5-15) L Blood Urea Nitrogen 3 mg/dL (7-18) L Creatinine 0.3 MG/DL (0.55-1.30) L Estimat Glomerular Filtration Rate > 60 mL/min (>60) Glucose Level 128 MG/DL (74-106) H Calcium Level 8.3 MG/DL (8.5-10.1) L Phosphorus Level 2.8 MG/DL (2.5-4.9) Magnesium Level 1.8 MG/DL (1.8-2.4) Total Bilirubin 0.5 MG/DL (0.2-1.0) Aspartate Amino Transf (AST/SGOT) 26 U/L (15-37) Alanine Aminotransferase (ALT/SGPT) 21 U/L (12-78) Alkaline Phosphatase 71 U/L (46-116) C-Reactive Protein, Quantitative 5.9 mg/dL (0.00-0.90) H Pro-B-Type Natriuretic Peptide 489 pg/mL (0-125) H Total Protein 6.9 G/DL (6.4-8.2) Albumin 2.3 G/DL (3.4-5.0) L Globulin 4.6 g/dL Albumin/Globulin Ratio 0.5 (1.0-2.7) L Current Medications Medications (Trade) Dose Ordered Sig/Zelda Route PRN Reason Start Time Stop Time Status Last Admin Dose Admin Acetaminophen (Tylenol) 650 mg Q4H PRN NG Temp >100.5 07/27/20 03:45 08/26/20 03:44 07/29/20 06:08 Calcitonin [place] (Miacalcin) 1 sprays DAILY NASAL 07/22/20 14:00 10/20/20 13:59 07/29/20 08:21 Chlorhexidine Gluconate (Inna-Hex 2%) 1 applic DAILY@2000 TOPIC 07/20/20 20:00 10/18/20 19:59 07/28/20 19:45 Dextrose (Dextrose 50%) 25 ml Q30M PRN IV Hypoglycemia 06/05/20 10:45 09/03/20 10:44 Dextrose (Dextrose 50%) 50 ml Q30M PRN IV Hypoglycemia 06/05/20 10:45 09/03/20 10:44 Dextrose/Sodium Chloride 1,000 ml @ 50 mls/hr Q20H IV 07/25/20 11:15 08/24/20 11:14 07/28/20 17:25 Docusate Sodium (Colace) 100 mg TWICE A DAY NG 07/26/20 18:00 08/25/20 17:59 07/29/20 08:21 Enoxaparin Sodium (Lovenox) 110 mg EVERY 12 HOURS SUBQ 07/17/20 21:00 10/15/20 20:59 07/29/20 08:22 Guaifenesin/ Codeine Phosphate (Robitussin with codeine) 5 ml Q6H PRN NG For Cough 07/14/20 14:15 08/13/20 14:14 07/18/20 21:44 Lansoprazole (Prevacid) 30 mg DAILY GT 07/18/20 09:00 08/09/20 08:59 07/29/20 08:20 Meropenem 1 gm/ Sodium Chloride 55 ml @ 110 mls/hr Q8H IVPB 07/22/20 12:00 08/02/20 11:59 07/29/20 04:00 Midazolam HCl 200 ml @ 0 mls/hr Q24H PRN IV sedation 07/22/20 14:06 07/29/20 14:05 07/28/20 22:42 Midodrine (Pro-Amatine) 10 mg Q8HR GT 06/30/20 14:00 09/12/20 13:59 07/29/20 06:05 Polyethylene Glycol (Miralax) 17 gm BEDTIME ORAL 07/26/20 21:00 08/25/20 20:59 07/28/20 21:00 Quetiapine Fumarate (SEROqueL) 50 mg Q12HR GT 07/16/20 13:30 08/30/20 13:29 07/29/20 08:21 Fili Mcelroy MD Jul 29, 2020 11:16
--- NOTE | 2020-07-29 11:21 | Pulmonology Progress Note ---
Subjective ROS Limited/Unobtainable: Yes Interval Events: Events noted; required R CT after code. Also trach changed to 7 Constitutional: Reports: fever, other - Gohx=584.1 HEENT: Repors: no symptoms Respiratory: Reports: no symptoms Cardiovascular: Reports: no symptoms Gastrointestinal/Abdominal: Reports: vomiting Genitourinary: Reports: no symptoms Allergies: Coded Allergies: No Known Allergies (Unverified , 05/28/20) All Systems: reviewed and negative except above Objective Last 24 Hour Vital Signs Date Time Temp Pulse Resp B/P (MAP) Pulse Ox O2 Delivery O2 Flow Rate FiO2 07/29/20 09:16 112 28 45 07/29/20 08:30 112 27 105/63 (77) 99 07/29/20 08:00 45 07/29/20 08:00 99.8 116 45 98/59 (72) 98 07/29/20 08:00 Mechanical Ventilator Mechanical Ventilator Mechanical Ventilator 07/29/20 07:30 118 31 96/64 (75) 97 07/29/20 07:19 120 32 45 07/29/20 07:00 121 40 119/68 (85) 94 07/29/20 07:00 43 119/68 Mechanical Ventilator 45 07/29/20 07:00 43 119/68 Mechanical Ventilator 45 07/29/20 06:46 38 118/74 Mechanical Ventilator 45 07/29/20 06:46 100.3 07/29/20 06:00 100.1 127 45 130/66 (87) 89 07/29/20 06:00 46 130/66 Mechanical Ventilator 45 07/29/20 06:00 43 133/66 Mechanical Ventilator 45 07/29/20 05:45 125 56 120/50 (73) 100 07/29/20 05:30 127 46 117/71 (86) 84 07/29/20 05:15 123 50 115/80 (92) 85 07/29/20 05:00 99.7 122 45 126/107 (113) 86 07/29/20 05:00 43 115/80 Mechanical Ventilator 45 07/29/20 05:00 43 115/80 Mechanical Ventilator 45 07/29/20 04:45 121 37 123/71 (88) 82 07/29/20 04:30 119 32 118/77 (91) 91 07/29/20 04:15 118 33 125/86 (99) 93 07/29/20 04:00 33 106/75 Mechanical Ventilator 45 07/29/20 04:00 33 106/75 Mechanical Ventilator 45 07/29/20 04:00 Mechanical Ventilator Mechanical Ventilator Mechanical Ventilator 07/29/20 04:00 115 07/29/20 04:00 45 07/29/20 04:00 119 33 106/75 (85) 100 07/29/20 03:45 117 31 107/75 (86) 92 07/29/20 03:30 115 28 45 07/29/20 03:30 99.1 117 32 121/68 (85) 92 07/29/20 03:15 117 37 118/71 (87) 86 07/29/20 03:00 27 99/73 Mechanical Ventilator 45 07/29/20 03:00 27 99/73 Mechanical Ventilator 45 07/29/20 03:00 115 27 99/73 (82) 92 07/29/20 02:45 116 32 112/84 (93) 93 07/29/20 02:30 113 30 116/65 (82) 98 07/29/20 02:15 115 29 131/61 (84) 93 07/29/20 02:00 116 31 120/70 (87) 90 07/29/20 02:00 31 120/70 Mechanical Ventilator 45 07/29/20 02:00 31 120/70 Mechanical Ventilator 45 07/29/20 01:45 117 56 120/77 (91) 88 07/29/20 01:30 105 32 121/73 (89) 85 07/29/20 01:15 110 35 122/83 (96) 85 07/29/20 01:00 104 43 95/62 (73) 99 07/29/20 01:00 43 95/62 Mechanical Ventilator 45 07/29/20 01:00 43 95/62 Mechanical Ventilator 45 07/29/20 00:45 103 52 93/61 (72) 99 07/29/20 00:30 98.8 105 33 103/67 (79) 100 07/29/20 00:15 104 46 99/59 (72) 100 07/29/20 00:00 110 07/29/20 00:00 106 47 102/53 (69) 100 07/29/20 00:00 Mechanical Ventilator Mechanical Ventilator Mechanical Ventilator 07/29/20 00:00 36 103/67 Mechanical Ventilator 45 07/29/20 00:00 36 103/67 Mechanical Ventilator 45 07/28/20 23:45 107 54 105/61 (76) 100 07/28/20 23:30 108 26 45 07/28/20 23:30 109 51 105/66 (79) 98 07/28/20 23:15 110 42 102/54 (70) 97 07/28/20 23:00 38 113/58 Mechanical Ventilator 45 07/28/20 23:00 38 113/58 Mechanical Ventilator 45 07/28/20 23:00 99.2 110 19 113/58 (76) 100 07/28/20 22:45 110 26 102/69 (80) 99 07/28/20 22:42 30 113/61 Mechanical Ventilator 45 07/28/20 22:30 111 32 113/61 (78) 99 07/28/20 22:15 115 33 102/71 (81) 96 07/28/20 22:00 33 102/71 Mechanical Ventilator 45 07/28/20 22:00 33 102/71 Mechanical Ventilator 45 07/28/20 22:00 115 26 112/63 (79) 90 07/28/20 21:45 114 39 105/68 (80) 96 07/28/20 21:30 115 32 118/65 (82) 93 07/28/20 21:15 116 33 119/72 (88) 95 07/28/20 21:00 119 38 121/69 (86) 91 07/28/20 21:00 36 119/72 Mechanical Ventilator 45 07/28/20 21:00 36 119/72 Mechanical Ventilator 45 07/28/20 20:45 116 40 116/81 (93) 96 07/28/20 20:30 115 33 117/70 (86) 96 07/28/20 20:15 112 38 128/75 (92) 94 07/28/20 20:00 108 07/28/20 20:00 35 128/75 Mechanical Ventilator 45 07/28/20 20:00 35 128/75 Mechanical Ventilator 45 07/28/20 20:00 45 07/28/20 20:00 98.6 111 36 135/62 (86) 99 07/28/20 20:00 Mechanical Ventilator Mechanical Ventilator Mechanical Ventilator 07/28/20 19:45 109 48 133/71 (91) 94 07/28/20 19:30 109 41 45 07/28/20 19:30 112 35 138/79 (98) 90 07/28/20 19:30 37 133/71 Mechanical Ventilator 45 07/28/20 19:30 37 133/71 Mechanical Ventilator 45 07/28/20 19:15 110 42 144/86 (105) 89 07/28/20 19:00 111 39 128/77 (94) 92 07/28/20 18:00 32 118/68 Mechanical Ventilator 45 07/28/20 18:00 32 118/68 Mechanical Ventilator 45 07/28/20 18:00 106 31 100/60 (73) 95 07/28/20 17:03 95 24 45 07/28/20 17:00 98.9 107 37 113/89 (97) 93 07/28/20 17:00 30 91/59 Mechanical Ventilator 45 07/28/20 17:00 30 91/59 Mechanical Ventilator 45 07/28/20 16:00 45 07/28/20 16:00 95 31 88/54 (65) 100 07/28/20 16:00 94 07/28/20 16:00 30 93/66 Mechanical Ventilator 45 07/28/20 16:00 30 93/66 Mechanical Ventilator 45 07/28/20 16:00 Mechanical Ventilator Mechanical Ventilator Mechanical Ventilator 07/28/20 15:00 95 35 101/59 (73) 100 07/28/20 15:00 17 101/59 Mechanical Ventilator 45 07/28/20 15:00 17 101/59 Mechanical Ventilator 45 07/28/20 14:43 97 23 45 07/28/20 14:00 77 17 105/61 (76) 100 07/28/20 14:00 27 98/68 Mechanical Ventilator 45 07/28/20 14:00 27 98/68 Mechanical Ventilator 45 07/28/20 13:00 18 101/64 Mechanical Ventilator 45 07/28/20 13:00 17 101/64 Mechanical Ventilator 45 07/28/20 13:00 106 26 99/61 (74) 92 07/28/20 12:43 103 27 45 07/28/20 12:00 102 07/28/20 12:00 99 34 94/60 (71) 100 07/28/20 12:00 45 07/28/20 12:00 30 94/59 Mechanical Ventilator 45 07/28/20 12:00 30 94/59 Mechanical Ventilator 45 07/28/20 12:00 Mechanical Ventilator Mechanical Ventilator Mechanical Ventilator 3/7/21 12:00 99.4 Intake and Output 07/28/20 07/29/20 19:00 07:00 Intake Total 1848.888 ml 1846.25 ml Output Total 1250 ml 1055 ml Balance 598.888 ml 791.25 ml Free Water 100 ml 200 ml IV Total 908.888 ml 1041.25 ml Tube Feeding 660 ml 605 ml Other 180 ml Output Urine Total 1100 ml 900 ml Chest Tube Drainage Total 150 ml 155 ml General Appearance: no acute distress HEENT: normocephalic, status post trach Respiratory: chest wall non-tender Cardiovascular: normal peripheral pulses Abdomen: normal bowel sounds, other - s/p PEG Laboratory Tests 07/29/20 04:10: White Blood Count 11.7H, Red Blood Count 3.31L, Hemoglobin 9.5L, Hematocrit 31.7L, Mean Corpuscular Volume 96, Mean Corpuscular Hemoglobin 28.7, Mean Corpuscular Hemoglobin Concent 30.0L, Red Cell Distribution Width 17.9H, Platelet Count 295, Mean Platelet Volume 8.2, Neutrophils (%) (Auto) 49.2, Lymphocytes (%) (Auto) 28.1, Monocytes (%) (Auto) 5.3, Eosinophils (%) (Auto) 16.6H, Basophils (%) (Auto) 0.9, Sodium Level 143, Potassium Level 4.6, Chloride Level 103, Carbon Dioxide Level 39H, Anion Gap 1L, Blood Urea Nitrogen 3L, Creatinine 0.3L, Estimat Glomerular Filtration Rate > 60, Glucose Level 128H, Calcium Level 8.3L, Phosphorus Level 2.8, Magnesium Level 1.8, Total Bilirubin 0.5, Aspartate Amino Transf (AST/SGOT) 26, Alanine Aminotransferase (ALT/SGPT) 21, Alkaline Phosphatase 71, C-Reactive Protein, Quantitative 5.9H, Pro-B-Type Natriuretic Peptide 489H, Total Protein 6.9, Albumin 2.3L, Globulin 4.6, Albumin/Globulin Ratio 0.5L Current Medications Medications (Trade) Dose Ordered Sig/Zelda Route PRN Reason Start Time Stop Time Status Last Admin Dose Admin Acetaminophen (Tylenol) 650 mg Q4H PRN NG Temp >100.5 07/27/20 03:45 08/26/20 03:44 07/29/20 06:08 Calcitonin [place] (Miacalcin) 1 sprays DAILY NASAL 07/22/20 14:00 10/20/20 13:59 07/29/20 08:21 Chlorhexidine Gluconate (Inna-Hex 2%) 1 applic DAILY@2000 TOPIC 07/20/20 20:00 10/18/20 19:59 07/28/20 19:45 Dextrose (Dextrose 50%) 25 ml Q30M PRN IV Hypoglycemia 06/05/20 10:45 09/03/20 10:44 Dextrose (Dextrose 50%) 50 ml Q30M PRN IV Hypoglycemia 06/05/20 10:45 09/03/20 10:44 Dextrose/Sodium Chloride 1,000 ml @ 50 mls/hr Q20H IV 07/25/20 11:15 08/24/20 11:14 07/28/20 17:25 Docusate Sodium (Colace) 100 mg TWICE A DAY NG 07/26/20 18:00 08/25/20 17:59 07/29/20 08:21 Enoxaparin Sodium (Lovenox) 110 mg EVERY 12 HOURS SUBQ 07/17/20 21:00 10/15/20 20:59 07/29/20 08:22 Guaifenesin/ Codeine Phosphate (Robitussin with codeine) 5 ml Q6H PRN NG For Cough 07/14/20 14:15 08/13/20 14:14 07/18/20 21:44 Lansoprazole (Prevacid) 30 mg DAILY GT 07/18/20 09:00 08/09/20 08:59 07/29/20 08:20 Meropenem 1 gm/ Sodium Chloride 55 ml @ 110 mls/hr Q8H IVPB 07/22/20 12:00 08/02/20 11:59 07/29/20 04:00 Midazolam HCl 200 ml @ 0 mls/hr Q24H PRN IV sedation 07/22/20 14:06 07/29/20 14:05 07/28/20 22:42 Midodrine (Pro-Amatine) 10 mg Q8HR GT 06/30/20 14:00 09/12/20 13:59 07/29/20 06:05 Polyethylene Glycol (Miralax) 17 gm BEDTIME ORAL 07/26/20 21:00 08/25/20 20:59 07/28/20 21:00 Quetiapine Fumarate (SEROqueL) 50 mg Q12HR GT 07/16/20 13:30 08/30/20 13:29 07/29/20 08:21 Assessment/Plan Assessment/Plan 1. COVID-19 pneumonia -Intubated 05/28/20 - We will continue broad-spectrum antibiotics. -s/p solumedrol, Rocephin -Continue PEEP 6 ->7 ->5 - Peak airway pressures better - FiO2 100% -> 90 ->80->60 ->40 ->80 ->100 ->70 ->60 -> 50 ->45 ->40 ->50 ->40%; PEEP 7 ->5 - s/p PEG - Sputum Cx pseudo -> on meropenem per ID 2. Hyponatremia -Per primary MD 3. Elevated inflammatory markers - has high D dimer; On Lovenox -> Lovenox held given anemia 4. DVT of the right calf - once stable, consider IVC filter per heme vs oral DOAC - was on Lovenox but held given anemia 5. Decreased PEEP S/p trach Reported cuff leak per RN/RT Changed 07/22/20 however still has cuff leak On low dose Levophed; will attempt to wean off Will wean off IV sedation; started Seroquel s/p PEG Required R CT due to PTX 07/22/20 - removal pending less drainage per surgery The care of this patient was discussed with my supervising physician Time spent for this encounter was approximately 31 minutes Vamshi Garcia Jul 29, 2020 11:21
--- NOTE | 2020-07-29 11:40 | Surgery Progress Note ---
Surgery Progress Note Subjective Procedure Performed right tube chest tube insertion Additional Comments chest tube output decreased weaned vent off suction no leak plan chest tube removal Objective Last 24 Hour Vital Signs Date Time Temp Pulse Resp B/P (MAP) Pulse Ox O2 Delivery O2 Flow Rate FiO2 07/29/20 11:12 105 23 45 07/29/20 09:16 112 28 45 07/29/20 08:30 112 27 105/63 (77) 99 07/29/20 08:00 45 07/29/20 08:00 99.8 116 45 98/59 (72) 98 07/29/20 08:00 Mechanical Ventilator Mechanical Ventilator Mechanical Ventilator 07/29/20 07:30 118 31 96/64 (75) 97 07/29/20 07:19 120 32 45 07/29/20 07:00 121 40 119/68 (85) 94 07/29/20 07:00 43 119/68 Mechanical Ventilator 45 07/29/20 07:00 43 119/68 Mechanical Ventilator 45 07/29/20 06:46 38 118/74 Mechanical Ventilator 45 07/29/20 06:46 100.3 07/29/20 06:00 100.1 127 45 130/66 (87) 89 07/29/20 06:00 46 130/66 Mechanical Ventilator 45 07/29/20 06:00 43 133/66 Mechanical Ventilator 45 07/29/20 05:45 125 56 120/50 (73) 100 07/29/20 05:30 127 46 117/71 (86) 84 07/29/20 05:15 123 50 115/80 (92) 85 07/29/20 05:00 99.7 122 45 126/107 (113) 86 07/29/20 05:00 43 115/80 Mechanical Ventilator 45 07/29/20 05:00 43 115/80 Mechanical Ventilator 45 07/29/20 04:45 121 37 123/71 (88) 82 07/29/20 04:30 119 32 118/77 (91) 91 07/29/20 04:15 118 33 125/86 (99) 93 07/29/20 04:00 33 106/75 Mechanical Ventilator 45 07/29/20 04:00 33 106/75 Mechanical Ventilator 45 07/29/20 04:00 Mechanical Ventilator Mechanical Ventilator Mechanical Ventilator 07/29/20 04:00 115 07/29/20 04:00 45 07/29/20 04:00 119 33 106/75 (85) 100 07/29/20 03:45 117 31 107/75 (86) 92 07/29/20 03:30 115 28 45 07/29/20 03:30 99.1 117 32 121/68 (85) 92 07/29/20 03:15 117 37 118/71 (87) 86 07/29/20 03:00 27 99/73 Mechanical Ventilator 45 07/29/20 03:00 27 99/73 Mechanical Ventilator 45 07/29/20 03:00 115 27 99/73 (82) 92 07/29/20 02:45 116 32 112/84 (93) 93 07/29/20 02:30 113 30 116/65 (82) 98 07/29/20 02:15 115 29 131/61 (84) 93 07/29/20 02:00 116 31 120/70 (87) 90 07/29/20 02:00 31 120/70 Mechanical Ventilator 45 07/29/20 02:00 31 120/70 Mechanical Ventilator 45 07/29/20 01:45 117 56 120/77 (91) 88 07/29/20 01:30 105 32 121/73 (89) 85 07/29/20 01:15 110 35 122/83 (96) 85 07/29/20 01:00 104 43 95/62 (73) 99 07/29/20 01:00 43 95/62 Mechanical Ventilator 45 07/29/20 01:00 43 95/62 Mechanical Ventilator 45 07/29/20 00:45 103 52 93/61 (72) 99 07/29/20 00:30 98.8 105 33 103/67 (79) 100 07/29/20 00:15 104 46 99/59 (72) 100 07/29/20 00:00 110 07/29/20 00:00 106 47 102/53 (69) 100 07/29/20 00:00 Mechanical Ventilator Mechanical Ventilator Mechanical Ventilator 07/29/20 00:00 36 103/67 Mechanical Ventilator 45 07/29/20 00:00 36 103/67 Mechanical Ventilator 45 07/28/20 23:45 107 54 105/61 (76) 100 07/28/20 23:30 108 26 45 07/28/20 23:30 109 51 105/66 (79) 98 07/28/20 23:15 110 42 102/54 (70) 97 07/28/20 23:00 38 113/58 Mechanical Ventilator 45 07/28/20 23:00 38 113/58 Mechanical Ventilator 45 07/28/20 23:00 99.2 110 19 113/58 (76) 100 07/28/20 22:45 110 26 102/69 (80) 99 07/28/20 22:42 30 113/61 Mechanical Ventilator 45 07/28/20 22:30 111 32 113/61 (78) 99 07/28/20 22:15 115 33 102/71 (81) 96 07/28/20 22:00 33 102/71 Mechanical Ventilator 45 07/28/20 22:00 33 102/71 Mechanical Ventilator 45 07/28/20 22:00 115 26 112/63 (79) 90 07/28/20 21:45 114 39 105/68 (80) 96 07/28/20 21:30 115 32 118/65 (82) 93 07/28/20 21:15 116 33 119/72 (88) 95 07/28/20 21:00 119 38 121/69 (86) 91 07/28/20 21:00 36 119/72 Mechanical Ventilator 45 07/28/20 21:00 36 119/72 Mechanical Ventilator 45 07/28/20 20:45 116 40 116/81 (93) 96 07/28/20 20:30 115 33 117/70 (86) 96 07/28/20 20:15 112 38 128/75 (92) 94 07/28/20 20:00 108 07/28/20 20:00 35 128/75 Mechanical Ventilator 45 07/28/20 20:00 35 128/75 Mechanical Ventilator 45 07/28/20 20:00 45 07/28/20 20:00 98.6 111 36 135/62 (86) 99 07/28/20 20:00 Mechanical Ventilator Mechanical Ventilator Mechanical Ventilator 07/28/20 19:45 109 48 133/71 (91) 94 07/28/20 19:30 109 41 45 07/28/20 19:30 112 35 138/79 (98) 90 07/28/20 19:30 37 133/71 Mechanical Ventilator 45 07/28/20 19:30 37 133/71 Mechanical Ventilator 45 07/28/20 19:15 110 42 144/86 (105) 89 07/28/20 19:00 111 39 128/77 (94) 92 07/28/20 18:00 32 118/68 Mechanical Ventilator 45 07/28/20 18:00 32 118/68 Mechanical Ventilator 45 07/28/20 18:00 106 31 100/60 (73) 95 07/28/20 17:03 95 24 45 07/28/20 17:00 98.9 107 37 113/89 (97) 93 07/28/20 17:00 30 91/59 Mechanical Ventilator 45 07/28/20 17:00 30 91/59 Mechanical Ventilator 45 07/28/20 16:00 45 07/28/20 16:00 95 31 88/54 (65) 100 07/28/20 16:00 94 07/28/20 16:00 30 93/66 Mechanical Ventilator 45 07/28/20 16:00 30 93/66 Mechanical Ventilator 45 07/28/20 16:00 Mechanical Ventilator Mechanical Ventilator Mechanical Ventilator 07/28/20 15:00 95 35 101/59 (73) 100 07/28/20 15:00 17 101/59 Mechanical Ventilator 45 07/28/20 15:00 17 101/59 Mechanical Ventilator 45 07/28/20 14:43 97 23 45 07/28/20 14:00 77 17 105/61 (76) 100 07/28/20 14:00 27 98/68 Mechanical Ventilator 45 07/28/20 14:00 27 98/68 Mechanical Ventilator 45 07/28/20 13:00 18 101/64 Mechanical Ventilator 45 07/28/20 13:00 17 101/64 Mechanical Ventilator 45 07/28/20 13:00 106 26 99/61 (74) 92 07/28/20 12:43 103 27 45 07/28/20 12:00 102 07/28/20 12:00 99 34 94/60 (71) 100 07/28/20 12:00 45 07/28/20 12:00 30 94/59 Mechanical Ventilator 45 07/28/20 12:00 30 94/59 Mechanical Ventilator 45 07/28/20 12:00 Mechanical Ventilator Mechanical Ventilator Mechanical Ventilator 07/28/20 12:00 99.4 I&O Intake and Output 07/28/20 07/29/20 19:00 07:00 Intake Total 1848.888 ml 1846.25 ml Output Total 1250 ml 1055 ml Balance 598.888 ml 791.25 ml Free Water 100 ml 200 ml IV Total 908.888 ml 1041.25 ml Tube Feeding 660 ml 605 ml Other 180 ml Output Urine Total 1100 ml 900 ml Chest Tube Drainage Total 150 ml 155 ml Dressing: saturated Drains: other Cardiovascular: RSR Respiratory: clear, decreased breath sounds Abdomen: soft, flat, non-tender, present bowel sounds Extremities: no tenderness, no cyanosis Laboratory Tests Test 07/29/20 04:10 White Blood Count 11.7 K/UL (4.8-10.8) H Red Blood Count 3.31 M/UL (4.20-5.40) L Hemoglobin 9.5 G/DL (12.0-16.0) L Hematocrit 31.7 % (37.0-47.0) L Mean Corpuscular Volume 96 FL (80-99) Mean Corpuscular Hemoglobin 28.7 PG (27.0-31.0) Mean Corpuscular Hemoglobin Concent 30.0 G/DL (32.0-36.0) L Red Cell Distribution Width 17.9 % (11.6-14.8) H Platelet Count 295 K/UL (150-450) Mean Platelet Volume 8.2 FL (6.5-10.1) Neutrophils (%) (Auto) 49.2 % (45.0-75.0) Lymphocytes (%) (Auto) 28.1 % (20.0-45.0) Monocytes (%) (Auto) 5.3 % (1.0-10.0) Eosinophils (%) (Auto) 16.6 % (0.0-3.0) H Basophils (%) (Auto) 0.9 % (0.0-2.0) Sodium Level 143 MMOL/L (136-145) Potassium Level 4.6 MMOL/L (3.5-5.1) Chloride Level 103 MMOL/L (98-107) Carbon Dioxide Level 39 MMOL/L (21-32) H Anion Gap 1 mmol/L (5-15) L Blood Urea Nitrogen 3 mg/dL (7-18) L Creatinine 0.3 MG/DL (0.55-1.30) L Estimat Glomerular Filtration Rate > 60 mL/min (>60) Glucose Level 128 MG/DL (74-106) H Calcium Level 8.3 MG/DL (8.5-10.1) L Phosphorus Level 2.8 MG/DL (2.5-4.9) Magnesium Level 1.8 MG/DL (1.8-2.4) Total Bilirubin 0.5 MG/DL (0.2-1.0) Aspartate Amino Transf (AST/SGOT) 26 U/L (15-37) Alanine Aminotransferase (ALT/SGPT) 21 U/L (12-78) Alkaline Phosphatase 71 U/L (46-116) C-Reactive Protein, Quantitative 5.9 mg/dL (0.00-0.90) H Pro-B-Type Natriuretic Peptide 489 pg/mL (0-125) H Total Protein 6.9 G/DL (6.4-8.2) Albumin 2.3 G/DL (3.4-5.0) L Globulin 4.6 g/dL Albumin/Globulin Ratio 0.5 (1.0-2.7) L Plan Problems: (1) Respiratory distress (2) Respiratory failure Assessment & Plan: 50-year-old female Covid positive respiratory insufficiency intubated on ventilatory support declining. Leukocytosis increase oxygen requirement. Vent settings per pulmonology reviewed identified and agree. Unfortunately further surgical invention at this time is not appropriate as patient is not a candidate and her current condition. Prognosis overall guarde d. Tracheostomy can be considered in the future if recovering or shows improvement and requires unable to be weaned from ventilator support. Currently okay for nutritional optimization with NG tube. Will need significant monitoring for decubitus formation given patient's size and condition. Okay for air mattress tolerated. Turn every 2 hours as tolerated. Patient is otherwise critically ill and blood pressure labile. Will need to monitor closely.Bilateral infiltrates are again demonstrated. Stable tube and line positions. will need trach will need to wean vent first no cuff leak trach okay Improving weaning well DC planning placement much improved peg placement trach changed acls now resuscitated (3) Hypoxia (4) Pneumonia due to COVID-19 virus Assessment & Plan: ++ as per pulm and ID (5) Diabetes mellitus out of control Assessment & Plan: DAILY ESTIMATED NEEDS: Needs based on Critical care, obesity 11-14kcal/kg actual body wt (140kg) kcals/kg 9451-1955 total kcals 1.5-2.0g prot/kg IBW (64.5kg) g protein/kg 96-129 g total protein 25-30ml/kg abw (83kg) mL/kg 8935-4188 total fluid mLs NUTRITION DIAGNOSIS: Swallowing difficulty R/T respiratory failure as evidenced by pt orally intubated and sedated, on OGT feeds. CURRENT TF: Vital 1.2 goal of 60ml/hr ENTERAL NUTRITION RECOMMENDATIONS: Vital AF 1.2 @ 60ml/hr x 24 hrs to provide 1440ml, 1728kcal, 108g prot, 1168ml free water * Maintain current critical care and carb controlled TF formula of Vital AF * TF @ goal meeds 100% est kcal/prot needs * HOB over 30 degrees/ water flush per MD TF may be lowered to 55ml/hr for improved BG control while maintaining Kcal and pro needs. ADDITIONAL RECOMMENDATIONS: * Calibrated bedscale wt * Monitor Propofol rate, need for TF adjustment-> now off * Monitor BGs closely : now improved, on novolog q 6rs + NISS * Monitor lytes- K elevated, monitor need for TF change * Rec bowel regimen- now w/ rectal tube . (6) Pneumothorax on right Assessment & Plan: right tension pneumothorax trach changed for cuff leak and decreased volumes pressures high after and ptx tension acls resuscitated right chest tube placed ptx resolved cont chest tube to suction am cxr wean vent Right chest tube, tracheostomy, nasogastric tube remain. Previously demonstrated subcutaneous emphysema has nearly completely cleared, with only questionably small residual in the left supraclavicular fossa. Extensive bilateral infiltrates persist. There is no pneumothorax currently. The heart is borderline enlarged. Pneumoperitoneum persists, may be slightly decreased Impression: Markedly improved subcutaneous emphysema Unchanged bilateral infiltrates Persistent but perhaps slightly decreased pneumoperitoneum chest tube removed 3/8 f/u cxr (7) DEVENDRA (acute kidney injury) (8) Morbid obesity SybilAz Jul 29, 2020 11:40
--- NOTE | 2020-07-29 13:07 | NUR ---
NURSE NOTES: Called head waiter case. She said it is not head waiter case.
--- NOTE | 2020-07-29 13:23 | NUR ---
RESPIRATORY NOTE: Placed pt on CPAP PS 8-45% FiO2-peep [address] Nava's order. Pt tolerated well for few minutes then started desat to 80%, tachypneic RR>45bpm, HR 122bpm, labor breathing. Placed pt back on Ac mode with the same settings, pt calms down, saturation went back up >98%, no more resp distress. RAKEL Minor at bedside and aware. Will continue to monitor.
--- NOTE | 2020-07-29 13:36 | General Progress Note ---
Subjective ROS Limited/Unobtainable: No Allergies: Coded Allergies: No Known Allergies (Unverified , 05/28/20) Objective Last 24 Hour Vital Signs Date Time Temp Pulse Resp B/P (MAP) Pulse Ox O2 Delivery O2 Flow Rate FiO2 07/29/20 13:23 113 30 45 07/29/20 11:12 105 23 45 07/29/20 09:16 112 28 45 07/29/20 08:30 112 27 105/63 (77) 99 07/29/20 08:00 45 07/29/20 08:00 99.8 116 45 98/59 (72) 98 07/29/20 08:00 Mechanical Ventilator Mechanical Ventilator Mechanical Ventilator 07/29/20 07:30 118 31 96/64 (75) 97 07/29/20 07:19 120 32 45 07/29/20 07:00 121 40 119/68 (85) 94 07/29/20 07:00 43 119/68 Mechanical Ventilator 45 07/29/20 07:00 43 119/68 Mechanical Ventilator 45 07/29/20 06:46 38 118/74 Mechanical Ventilator 45 07/29/20 06:46 100.3 07/29/20 06:00 100.1 127 45 130/66 (87) 89 07/29/20 06:00 46 130/66 Mechanical Ventilator 45 07/29/20 06:00 43 133/66 Mechanical Ventilator 45 07/29/20 05:45 125 56 120/50 (73) 100 07/29/20 05:30 127 46 117/71 (86) 84 07/29/20 05:15 123 50 115/80 (92) 85 07/29/20 05:00 99.7 122 45 126/107 (113) 86 07/29/20 05:00 43 115/80 Mechanical Ventilator 45 07/29/20 05:00 43 115/80 Mechanical Ventilator 45 07/29/20 04:45 121 37 123/71 (88) 82 07/29/20 04:30 119 32 118/77 (91) 91 07/29/20 04:15 118 33 125/86 (99) 93 07/29/20 04:00 33 106/75 Mechanical Ventilator 45 07/29/20 04:00 33 106/75 Mechanical Ventilator 45 07/29/20 04:00 Mechanical Ventilator Mechanical Ventilator Mechanical Ventilator 07/29/20 04:00 115 07/29/20 04:00 45 07/29/20 04:00 119 33 106/75 (85) 100 07/29/20 03:45 117 31 107/75 (86) 92 07/29/20 03:30 115 28 45 07/29/20 03:30 99.1 117 32 121/68 (85) 92 07/29/20 03:15 117 37 118/71 (87) 86 07/29/20 03:00 27 99/73 Mechanical Ventilator 45 07/29/20 03:00 27 99/73 Mechanical Ventilator 45 07/29/20 03:00 115 27 99/73 (82) 92 07/29/20 02:45 116 32 112/84 (93) 93 07/29/20 02:30 113 30 116/65 (82) 98 07/29/20 02:15 115 29 131/61 (84) 93 07/29/20 02:00 116 31 120/70 (87) 90 07/29/20 02:00 31 120/70 Mechanical Ventilator 45 07/29/20 02:00 31 120/70 Mechanical Ventilator 45 07/29/20 01:45 117 56 120/77 (91) 88 07/29/20 01:30 105 32 121/73 (89) 85 07/29/20 01:15 110 35 122/83 (96) 85 07/29/20 01:00 104 43 95/62 (73) 99 07/29/20 01:00 43 95/62 Mechanical Ventilator 45 07/29/20 01:00 43 95/62 Mechanical Ventilator 45 07/29/20 00:45 103 52 93/61 (72) 99 07/29/20 00:30 98.8 105 33 103/67 (79) 100 07/29/20 00:15 104 46 99/59 (72) 100 07/29/20 00:00 110 07/29/20 00:00 106 47 102/53 (69) 100 07/29/20 00:00 Mechanical Ventilator Mechanical Ventilator Mechanical Ventilator 07/29/20 00:00 36 103/67 Mechanical Ventilator 45 07/29/20 00:00 36 103/67 Mechanical Ventilator 45 07/28/20 23:45 107 54 105/61 (76) 100 07/28/20 23:30 108 26 45 07/28/20 23:30 109 51 105/66 (79) 98 07/28/20 23:15 110 42 102/54 (70) 97 07/28/20 23:00 38 113/58 Mechanical Ventilator 45 07/28/20 23:00 38 113/58 Mechanical Ventilator 45 07/28/20 23:00 99.2 110 19 113/58 (76) 100 07/28/20 22:45 110 26 102/69 (80) 99 07/28/20 22:42 30 113/61 Mechanical Ventilator 45 07/28/20 22:30 111 32 113/61 (78) 99 07/28/20 22:15 115 33 102/71 (81) 96 07/28/20 22:00 33 102/71 Mechanical Ventilator 45 07/28/20 22:00 33 102/71 Mechanical Ventilator 45 07/28/20 22:00 115 26 112/63 (79) 90 07/28/20 21:45 114 39 105/68 (80) 96 07/28/20 21:30 115 32 118/65 (82) 93 07/28/20 21:15 116 33 119/72 (88) 95 07/28/20 21:00 119 38 121/69 (86) 91 07/28/20 21:00 36 119/72 Mechanical Ventilator 45 07/28/20 21:00 36 119/72 Mechanical Ventilator 45 07/28/20 20:45 116 40 116/81 (93) 96 07/28/20 20:30 115 33 117/70 (86) 96 07/28/20 20:15 112 38 128/75 (92) 94 07/28/20 20:00 108 07/28/20 20:00 35 128/75 Mechanical Ventilator 45 07/28/20 20:00 35 128/75 Mechanical Ventilator 45 07/28/20 20:00 45 07/28/20 20:00 98.6 111 36 135/62 (86) 99 07/28/20 20:00 Mechanical Ventilator Mechanical Ventilator Mechanical Ventilator 07/28/20 19:45 109 48 133/71 (91) 94 07/28/20 19:30 109 41 45 07/28/20 19:30 112 35 138/79 (98) 90 07/28/20 19:30 37 133/71 Mechanical Ventilator 45 07/28/20 19:30 37 133/71 Mechanical Ventilator 45 07/28/20 19:15 110 42 144/86 (105) 89 07/28/20 19:00 111 39 128/77 (94) 92 07/28/20 18:00 32 118/68 Mechanical Ventilator 45 07/28/20 18:00 32 118/68 Mechanical Ventilator 45 07/28/20 18:00 106 31 100/60 (73) 95 07/28/20 17:03 95 24 45 07/28/20 17:00 98.9 107 37 113/89 (97) 93 07/28/20 17:00 30 91/59 Mechanical Ventilator 45 07/28/20 17:00 30 91/59 Mechanical Ventilator 45 07/28/20 16:00 45 07/28/20 16:00 95 31 88/54 (65) 100 07/28/20 16:00 94 07/28/20 16:00 30 93/66 Mechanical Ventilator 45 07/28/20 16:00 30 93/66 Mechanical Ventilator 45 07/28/20 16:00 Mechanical Ventilator Mechanical Ventilator Mechanical Ventilator 07/28/20 15:00 95 35 101/59 (73) 100 07/28/20 15:00 17 101/59 Mechanical Ventilator 45 07/28/20 15:00 17 101/59 Mechanical Ventilator 45 07/28/20 14:43 97 23 45 07/28/20 14:00 77 17 105/61 (76) 100 07/28/20 14:00 27 98/68 Mechanical Ventilator 45 07/28/20 14:00 27 98/68 Mechanical Ventilator 45 Intake and Output 07/28/20 07/29/20 19:00 07:00 Intake Total 1848.888 ml 1846.25 ml Output Total 1250 ml 1055 ml Balance 598.888 ml 791.25 ml Free Water 100 ml 200 ml IV Total 908.888 ml 1041.25 ml Tube Feeding 660 ml 605 ml Other 180 ml Output Urine Total 1100 ml 900 ml Chest Tube Drainage Total 150 ml 155 ml Laboratory Tests 07/29/20 04:10: White Blood Count 11.7H, Red Blood Count 3.31L, Hemoglobin 9.5L, Hematocrit 31.7L, Mean Corpuscular Volume 96, Mean Corpuscular Hemoglobin 28.7, Mean Corpuscular Hemoglobin Concent 30.0L, Red Cell Distribution Width 17.9H, Platelet Count 295, Mean Platelet Volume 8.2, Neutrophils (%) (Auto) 49.2, Lymphocytes (%) (Auto) 28.1, Monocytes (%) (Auto) 5.3, Eosinophils (%) (Auto) 16.6H, Basophils (%) (Auto) 0.9, Sodium Level 143, Potassium Level 4.6, Chloride Level 103, Carbon Dioxide Level 39H, Anion Gap 1L, Blood Urea Nitrogen 3L, Creatinine 0.3L, Estimat Glomerular Filtration Rate > 60, Glucose Level 128H, Calcium Level 8.3L, Phosphorus Level 2.8, Magnesium Level 1.8, Total Bilirubin 0.5, Aspartate Amino Transf (AST/SGOT) 26, Alanine Aminotransferase (ALT/SGPT) 21, Alkaline Phosphatase 71, C-Reactive Protein, Quantitative 5.9H, Pro-B-Type Natriuretic Peptide 489H, Total Protein 6.9, Albumin 2.3L, Globulin 4.6, Albumin/Globulin Ratio 0.5L Height (Feet): 5 Height (Inches): 5.00 Weight (Pounds): 223 General Appearance: no apparent distress EENT: normal ENT inspection Neck: normal alignment Cardiovascular: normal rate Respiratory/Chest: decreased breath sounds Abdomen: normal bowel sounds, non tender, soft Extremities: non-tender Assessment/Plan Problem List: (1) Morbid obesity ICD Codes: E66.01 - Morbid (severe) obesity due to excess calories SNOMED: 584886521 (2) DEVENDRA (acute kidney injury) ICD Codes: N17.9 - Acute kidney failure, unspecified SNOMED: 2919836, 60424383 (3) Diabetes mellitus out of control ICD Codes: E11.65 - Type 2 diabetes mellitus with hyperglycemia SNOMED: 79929434, 202662057 (4) Pneumonia due to COVID-19 virus ICD Codes: U07.1 - COVID-19; J12.82 - Pneumonia due to coronavirus disease 2019 SNOMED: 530843270364948509 (5) Hypoxia ICD Codes: R09.02 - Hypoxemia SNOMED: 004201922 (6) Respiratory failure ICD Codes: J96.90 - Respiratory failure, unspecified, unspecified whether with hypoxia or hypercapnia SNOMED: 204084563 Status: unchanged Assessment/Plan: s/p PEG GTF colace miralax will Ryan Dubose MD Jul 29, 2020 13:36
--- NOTE | 2020-07-29 13:40 | Cardiac Electrophysiology PN ---
Assessment/Plan Assessment/Plan 1. Respiratory failure due to COVID-19 pneumonia. On tracheostomy on 450 % Fio2. Trach exchanged 07/22/[address] Devine Echo EF 60% 2. S/P Code x2 with hypotension and sammy arrest on 07/22/20 likely due to Pneumothorax No further after chest tube. HR stable 3. Right Pneumothorax, S/P chest tube placement Removed today 4. Hypotension, on midodrine 10 mg 3 times daily and off pressors 5. Dysphagia. S/P PEG 07/24/20 6. Right lower extremity DVT. Follow up by Hematology. May need IVC filter placement. 7. Severe anemia, S/P PRBC DW RN and Dr Tyler Subjective Subjective In ICU on the Vent on 45 % Fio2 and PEEP 5 in SR. Off pressors Coded twice for hypotension and bradycardia while on the Vent about 20 minutes after tracheostomy was changed 07/22/20 Found to have Right Pneumothorax and underwent Right chest tube placement by Dr. Devine S/P PRBC. S/P PEG 07/24/20. Chest tube removed this AM at 11 Am. Objective Last 24 Hour Vital Signs Date Time Temp Pulse Resp B/P (MAP) Pulse Ox O2 Delivery O2 Flow Rate FiO2 07/29/20 13:23 113 30 45 07/29/20 11:12 105 23 45 07/29/20 09:16 112 28 45 07/29/20 08:30 112 27 105/63 (77) 99 07/29/20 08:00 45 07/29/20 08:00 99.8 116 45 98/59 (72) 98 07/29/20 08:00 Mechanical Ventilator Mechanical Ventilator Mechanical Ventilator 07/29/20 07:30 118 31 96/64 (75) 97 07/29/20 07:19 120 32 45 07/29/20 07:00 121 40 119/68 (85) 94 07/29/20 07:00 43 119/68 Mechanical Ventilator 45 07/29/20 07:00 43 119/68 Mechanical Ventilator 45 07/29/20 06:46 38 118/74 Mechanical Ventilator 45 07/29/20 06:46 100.3 07/29/20 06:00 100.1 127 45 130/66 (87) 89 07/29/20 06:00 46 130/66 Mechanical Ventilator 45 07/29/20 06:00 43 133/66 Mechanical Ventilator 45 07/29/20 05:45 125 56 120/50 (73) 100 07/29/20 05:30 127 46 117/71 (86) 84 07/29/20 05:15 123 50 115/80 (92) 85 07/29/20 05:00 99.7 122 45 126/107 (113) 86 07/29/20 05:00 43 115/80 Mechanical Ventilator 45 07/29/20 05:00 43 115/80 Mechanical Ventilator 45 07/29/20 04:45 121 37 123/71 (88) 82 07/29/20 04:30 119 32 118/77 (91) 91 07/29/20 04:15 118 33 125/86 (99) 93 07/29/20 04:00 33 106/75 Mechanical Ventilator 45 07/29/20 04:00 33 106/75 Mechanical Ventilator 45 07/29/20 04:00 Mechanical Ventilator Mechanical Ventilator Mechanical Ventilator 07/29/20 04:00 115 07/29/20 04:00 45 07/29/20 04:00 119 33 106/75 (85) 100 07/29/20 03:45 117 31 107/75 (86) 92 07/29/20 03:30 115 28 45 07/29/20 03:30 99.1 117 32 121/68 (85) 92 07/29/20 03:15 117 37 118/71 (87) 86 07/29/20 03:00 27 99/73 Mechanical Ventilator 45 07/29/20 03:00 27 99/73 Mechanical Ventilator 45 07/29/20 03:00 115 27 99/73 (82) 92 07/29/20 02:45 116 32 112/84 (93) 93 07/29/20 02:30 113 30 116/65 (82) 98 07/29/20 02:15 115 29 131/61 (84) 93 07/29/20 02:00 116 31 120/70 (87) 90 07/29/20 02:00 31 120/70 Mechanical Ventilator 45 07/29/20 02:00 31 120/70 Mechanical Ventilator 45 07/29/20 01:45 117 56 120/77 (91) 88 07/29/20 01:30 105 32 121/73 (89) 85 07/29/20 01:15 110 35 122/83 (96) 85 07/29/20 01:00 104 43 95/62 (73) 99 07/29/20 01:00 43 95/62 Mechanical Ventilator 45 07/29/20 01:00 43 95/62 Mechanical Ventilator 45 07/29/20 00:45 103 52 93/61 (72) 99 07/29/20 00:30 98.8 105 33 103/67 (79) 100 07/29/20 00:15 104 46 99/59 (72) 100 07/29/20 00:00 110 07/29/20 00:00 106 47 102/53 (69) 100 07/29/20 00:00 Mechanical Ventilator Mechanical Ventilator Mechanical Ventilator 07/29/20 00:00 36 103/67 Mechanical Ventilator 45 07/29/20 00:00 36 103/67 Mechanical Ventilator 45 07/28/20 23:45 107 54 105/61 (76) 100 07/28/20 23:30 108 26 45 07/28/20 23:30 109 51 105/66 (79) 98 07/28/20 23:15 110 42 102/54 (70) 97 07/28/20 23:00 38 113/58 Mechanical Ventilator 45 07/28/20 23:00 38 113/58 Mechanical Ventilator 45 07/28/20 23:00 99.2 110 19 113/58 (76) 100 07/28/20 22:45 110 26 102/69 (80) 99 07/28/20 22:42 30 113/61 Mechanical Ventilator 45 07/28/20 22:30 111 32 113/61 (78) 99 07/28/20 22:15 115 33 102/71 (81) 96 07/28/20 22:00 33 102/71 Mechanical Ventilator 45 07/28/20 22:00 33 102/71 Mechanical Ventilator 45 07/28/20 22:00 115 26 112/63 (79) 90 07/28/20 21:45 114 39 105/68 (80) 96 07/28/20 21:30 115 32 118/65 (82) 93 07/28/20 21:15 116 33 119/72 (88) 95 07/28/20 21:00 119 38 121/69 (86) 91 07/28/20 21:00 36 119/72 Mechanical Ventilator 45 07/28/20 21:00 36 119/72 Mechanical Ventilator 45 07/28/20 20:45 116 40 116/81 (93) 96 07/28/20 20:30 115 33 117/70 (86) 96 07/28/20 20:15 112 38 128/75 (92) 94 07/28/20 20:00 108 07/28/20 20:00 35 128/75 Mechanical Ventilator 45 07/28/20 20:00 35 128/75 Mechanical Ventilator 45 07/28/20 20:00 45 07/28/20 20:00 98.6 111 36 135/62 (86) 99 07/28/20 20:00 Mechanical Ventilator Mechanical Ventilator Mechanical Ventilator 07/28/20 19:45 109 48 133/71 (91) 94 07/28/20 19:30 109 41 45 07/28/20 19:30 112 35 138/79 (98) 90 07/28/20 19:30 37 133/71 Mechanical Ventilator 45 07/28/20 19:30 37 133/71 Mechanical Ventilator 45 07/28/20 19:15 110 42 144/86 (105) 89 07/28/20 19:00 111 39 128/77 (94) 92 07/28/20 18:00 32 118/68 Mechanical Ventilator 45 07/28/20 18:00 32 118/68 Mechanical Ventilator 45 07/28/20 18:00 106 31 100/60 (73) 95 07/28/20 17:03 95 24 45 07/28/20 17:00 98.9 107 37 113/89 (97) 93 07/28/20 17:00 30 91/59 Mechanical Ventilator 45 07/28/20 17:00 30 91/59 Mechanical Ventilator 45 07/28/20 16:00 45 07/28/20 16:00 95 31 88/54 (65) 100 07/28/20 16:00 94 07/28/20 16:00 30 93/66 Mechanical Ventilator 45 07/28/20 16:00 30 93/66 Mechanical Ventilator 45 07/28/20 16:00 Mechanical Ventilator Mechanical Ventilator Mechanical Ventilator 07/28/20 15:00 95 35 101/59 (73) 100 07/28/20 15:00 17 101/59 Mechanical Ventilator 45 07/28/20 15:00 17 101/59 Mechanical Ventilator 45 07/28/20 14:43 97 23 45 07/28/20 14:00 77 17 105/61 (76) 100 07/28/20 14:00 27 98/68 Mechanical Ventilator 45 07/28/20 14:00 27 98/68 Mechanical Ventilator 45 Intake and Output 07/28/20 07/29/20 19:00 07:00 Intake Total 1848.888 ml 1846.25 ml Output Total 1250 ml 1055 ml Balance 598.888 ml 791.25 ml Free Water 100 ml 200 ml IV Total 908.888 ml 1041.25 ml Tube Feeding 660 ml 605 ml Other 180 ml Output Urine Total 1100 ml 900 ml Chest Tube Drainage Total 150 ml 155 ml Laboratory Tests Test 07/29/20 04:10 White Blood Count 11.7 K/UL (4.8-10.8) H Red Blood Count 3.31 M/UL (4.20-5.40) L Hemoglobin 9.5 G/DL (12.0-16.0) L Hematocrit 31.7 % (37.0-47.0) L Mean Corpuscular Volume 96 FL (80-99) Mean Corpuscular Hemoglobin 28.7 PG (27.0-31.0) Mean Corpuscular Hemoglobin Concent 30.0 G/DL (32.0-36.0) L Red Cell Distribution Width 17.9 % (11.6-14.8) H Platelet Count 295 K/UL (150-450) Mean Platelet Volume 8.2 FL (6.5-10.1) Neutrophils (%) (Auto) 49.2 % (45.0-75.0) Lymphocytes (%) (Auto) 28.1 % (20.0-45.0) Monocytes (%) (Auto) 5.3 % (1.0-10.0) Eosinophils (%) (Auto) 16.6 % (0.0-3.0) H Basophils (%) (Auto) 0.9 % (0.0-2.0) Sodium Level 143 MMOL/L (136-145) Potassium Level 4.6 MMOL/L (3.5-5.1) Chloride Level 103 MMOL/L (98-107) Carbon Dioxide Level 39 MMOL/L (21-32) H Anion Gap 1 mmol/L (5-15) L Blood Urea Nitrogen 3 mg/dL (7-18) L Creatinine 0.3 MG/DL (0.55-1.30) L Estimat Glomerular Filtration Rate > 60 mL/min (>60) Glucose Level 128 MG/DL (74-106) H Calcium Level 8.3 MG/DL (8.5-10.1) L Phosphorus Level 2.8 MG/DL (2.5-4.9) Magnesium Level 1.8 MG/DL (1.8-2.4) Total Bilirubin 0.5 MG/DL (0.2-1.0) Aspartate Amino Transf (AST/SGOT) 26 U/L (15-37) Alanine Aminotransferase (ALT/SGPT) 21 U/L (12-78) Alkaline Phosphatase 71 U/L (46-116) C-Reactive Protein, Quantitative 5.9 mg/dL (0.00-0.90) H Pro-B-Type Natriuretic Peptide 489 pg/mL (0-125) H Total Protein 6.9 G/DL (6.4-8.2) Albumin 2.3 G/DL (3.4-5.0) L Globulin 4.6 g/dL Albumin/Globulin Ratio 0.5 (1.0-2.7) L Objective HEAD AND NECK: Status post tracheostomy LUNGS: Coarse rhonchi. CARDIOVASCULAR: Regular S1 and S2 with no gallop. ABDOMEN: Soft.S/P PEG EXTREMITIES: 1+ pitting edema. Hill Burger MD Jul 29, 2020 13:40
[2020-07-29] MEDS: Versed 100mg/NS 200ml 200 ML IV PRN (14:16)
--- NOTE | 2020-07-29 14:34 | NUR ---
*-*DISCHARGE PLANNING*-* PATIENT HAS BEEN REFERRED TO: [facility] P: [phone] PLACED MULTIPLE CALLS TO, NO ANSWER, UNABLE TO LEAVE VOICE MESSAGE.
[2020-07-29] MEDS: D5NS 1,000 ML IV SCH (14:54)
--- NOTE | 2020-07-29 15:55 | NUR ---
INSURANCE CLINICALS FAXED TO [facility] T: [phone] EXT [phone] F: [phone]
--- NOTE | 2020-07-29 16:50 | NUR ---
NURSE NOTES: Bed bath given. kept dry, clean and comfortable.
--- NOTE | 2020-07-29 19:07 | NUR ---
NURSE HAND-OFF REPORT: Latest Vital Signs: Temperature 99.5 , Pulse 117 , B/P 113 /80 , Respiratory Rate 35 , O2 SAT 92 , Mechanical Ventilator, O2 Flow Rate . Vital Sign Comment: stable EKG Rhythm: Sinus Tachycardia Rhythm change?: Jesus TOLLIVER Notified?: Jesus EDWARDS MD Response: Latest Meyers Fall Score: 50 Fall Risk: High Risk Safety Measures: Call light Within Reach, Bed Alarm Zone 3, Side Rails Side Rails x2, Bed position Low and Locked. Fall Precautions: Yellow Socks Door Sign Patient Fall Education Report given to RAKEL Brenner. Endorsed plan of care.
--- NOTE | 2020-07-29 19:10 | NUR ---
Received report from RAKEL Minor and assumed care of patient.
[2020-07-29] MEDS: Dyna-Hex 2% Top Sol 2oz TOPIC SCH (19:55)
--- NOTE | 2020-07-29 20:00 | NUR ---
Assessment completed on patient. R lung sounds diminished in all lobes post CT removal on day shift. L lung sounds remain rhonchorous throughout. Patient VSS, slightly febrile, tylenol administered via G tube, cooling blanket on and functioning. Tube feeds remain on hold due to vomiting this afternoon for Day Shift. Remains sedated at a RASS -2. Will continue to monitor patient closely. Repositioned and oral care provided.
[2020-07-29] MEDS: Miralax 17gm pkt ORAL SCH (20:22)
--- NOTE | 2020-07-29 22:43 | NUR ---
Full bath completed on patient. Moderate sized liquid stool; brown. Chest tube site dressing saturated with serousanguinous drainage; changed. DC site is open; not sutured shut, replaced ball of gauze that was placed by provider upon chest tube dc and covered with clean dry gauze. Patients sacrum remains intact. Repositioned patient and provided oral care. Remains tachycardic and BP trending slightly lower. Will continue to monitor patient closely. RT to bedside to replace drain sponges under trach collar. Pt does not appear to be in any acute distress.
[2020-07-30] VITALS (63 sets, daily range): BP systolic 78–127; BP diastolic 41–92
[2020-07-30] MEDS: Versed 100mg/NS 200ml 200 ML IV PRN (00:37)
--- NOTE | 2020-07-30 00:40 | NUR ---
Midnight assessment complete. Pt continues to have very diminished lung sounds to R chest where chest tube resided. Patient does not appear to be in any acute distress. Vent settings are stable, peak pressures are stable, RR is in the low to mid 20's which is good for this patient. Pt continues to have yellow/green sputum when suctioning trach. Pt arouses to voice and opens eyes, but does not follow commands for this RN in Serbian nor in [place]. With sedation pt remains at a RASS -2. BG taken and is WNL at 133. Continues to produce good U.O. via marrero catheter. Pt repositioned and oral care provided. Pt afebrile on cooling blanket with current rectal temp @ 96.5. Will continue to monitor the patient.
--- NOTE | 2020-07-30 02:30 | NUR ---
Pt stable and in NAD at this time. repositioned and oral care provided. Will continue to monitor.
[2020-07-30] MEDS: Meropenem 1 GM in NS 55 ML IVPB SCH ×3 (03:27→20:12)
--- NOTE | 2020-07-30 04:34 | NUR ---
0400 assessment complete. Pt repositioned onto L side with R lung up. Lung sounds improved. However, now with expiratory wheezes. Mild at this time, will monitor as patient does not have PRN duoneb available and patient is tachycardic. If worsens, will call provider for orders, otherwise will pass along to Day RN to notify provider during rounds for PRN medications to treat wheezing. Patient does not appear to be in any acute distress. Vent settings are stable, peak pressures are stable, RR is in the low to mid 20's. Pt continues to have yellow/green sputum when suctioning trach. Pt arouses to voice and opens eyes, but does not follow commands for this RN in Turkmen nor in [place]. With sedation pt remains at a RASS -2. Oral care provided. Pt afebrile on cooling blanket with current rectal temp @ 97.6. Will continue to monitor the patient.
[2020-07-30 05:05] LABS: BASOPHILS % (AUTO) 0.6 % (0.0-2.0); EOSINOPHILS % (AUTO) 4.8 % (0.0-3.0); HEMATOCRIT 28.4 % (37.0-47.0); HEMOGLOBIN 8.5 G/DL (12.0-16.0); LYMPHOCYTES % (AUTO) 19.7 % (20.0-45.0); MEAN CORPUSCULAR VOLUME 95 FL (80-99); MONOCYTES % (AUTO) 6.7 % (1.0-10.0); NEUTROPHILS % (AUTO) 68.2 % (45.0-75.0); PLATELET COUNT 266 K/UL (150-450); RED CELL DISTRIBUTION WIDTH 17.8 % (11.6-14.8)
[2020-07-30 05:18] LABS: ALANINE AMINOTRANSFERASE 18 U/L (12-78); ALBUMIN 2.2 G/DL (3.4-5.0); ALBUMIN/GLOBULIN RATIO 0.5 (1.0-2.7); ALKALINE PHOSPHATASE 72 U/L (46-116); ANION GAP -1 mmol/L (5-15); ASPARTATE AMINO TRANSFERASE 21 U/L (15-37); BILIRUBIN,TOTAL 0.4 MG/DL (0.2-1.0); BLOOD UREA NITROGEN 4 mg/dL (7-18); CALCIUM 8.1 MG/DL (8.5-10.1); CHLORIDE 103 MMOL/L (98-107); CREATININE 0.5 MG/DL (0.55-1.30); POTASSIUM 4.8 MMOL/L (3.5-5.1); SODIUM 144 MMOL/L (136-145)
[2020-07-30 05:19] LABS: INR 1.1 (0.9-1.1)
[2020-07-30 05:22] LABS: CARBON DIOXIDE 40 MMOL/L (21-32)
[2020-07-30] MEDS: Midodrine 10mg tab GT SCH ×3 (06:05→21:34)
--- NOTE | 2020-07-30 06:24 | NUR ---
Pt remains in no acute distress. Suctioned moderate amounts of thick green sputum from trach. Oral care provided to patient. Kept patient on left side with R lung up as air moves throughout the right lung in this position better than prior positions. Pt will be laid flat for CXR later this morning per Dr. henriquez. Patient remains on sedation at a RASS -2. Patient opens eyes to voice, but will not follow commands in [place] or in [place]. BG WNL this am. VSS. Will continue to monitor.
--- NOTE | 2020-07-30 06:26 | Hematology/Onc Progress Note ---
Assessment/Plan Assessment/Plan # Deep vein thrombosis of the right calf --> given onoing anemia and low plts --> consider ivc if bleeding--once stable, needs it placed --> once stable, for radiology and ivc filter placement # Thrombocytopenia is due to infection/underlying covid19+++ --> ABX ceftriaxone -->zosyn-->off --> on steriods likely cause of initial wbc --> per pulm --> plt 107->156-->192-->205 --> smear reviewed # Leukocytosis due to Pneumonia due to COVID-19 virus --> per pulm rx -> sp remdesivir --> wbc 11.9-->11-->21-->8.8-->11.7-->13 # Anemia due to chronic disease --> hgb goal is >7 --> transfuse prn --> ferritin is >1000 --> hold off on iron --> 10-->9.8->9-->8-->8.2->>7.1-->7.9->7.5-->9.5-->8.5 --> 1 unit prbc 07/24 # Elevated ddimer due to covid19++ --> duplex legs is negative --> underlying covid rx # Hypoxia -> due to covid19 --> steriods as needed # Hypoxemia --> rx same as above # Respiratory failure --> on vent/trach --> per pulm # Diabetes mellitus out of control --> hgb a1c goal <7 # Dysphagia --> s/p peg # Poor prognosis # Dvt ppx ivc filter once more stable Appreciate consultation and dw RN Subjective Allergies: Coded Allergies: No Known Allergies (Unverified , 05/28/20) All Systems: reviewed and negative except above Subjective 06/10 nv, on vent, with ogt, on fentanyl and versed, plt stable 06/11 nv, vent adjusted is on ogt, meds reviewed 06/12 nv, vent, meds noted, labs noted, no bleeding, hgb 10.4 06/13 nv, is on vent, meds reviewed, no bleeding, cbc reviewed 06/14 nv, on vent, tachy, labs reviewed, gross hematuria, febrile overnight, abx 06/17 nv, on vent, labs noted, no major changes, feeling better overnight 06/18 nv, meds reviewed, labs noted, no major events, hgb 8.6 06/19 nv, remains intubated, with fluids, labs reviewed, meds noted 06/20 nv, intubated remains on restraints, meds noted as well, as labs 06/21 nv, remains on vent, on restraints, meds reviewed, labs noted 06/22: covering Dr. Del Cid no acute events 06/23 sedated, on vent, nv, intubated, meds reviewed, versed 06/24 nv, on vent, no night sweats, no bleeding, remains in icu 06/25 nv, on vent, icu, meds noted, no bleeding, comfortable 06/26 nv, on versed, icu, weaning parameters, labs noted 06/27 nv, overnight fighting vent, as per pulm fentanyl on board 06/28 nv, on vent, labs reviewed, as per pulm, meds noted 06/30 nv, icu, labs pending, is on fentanyl, versed, no new changes 07/01 nv, icu, is on vent, labs pending, no new changes per rn 07/02 nv, icu is on vent, labs noted, hgb is stable 07/03 nv, icu, is on vent, potential trrach when stable, cbc reviewed 07/04 icu, nv, labs are noted, stable for trach today dw Rn Dl 07/05 icu, nv, on vent, with ng and picc in place, labs noted, s/p trach 07/07 icu, nv, on tv, no bleeding, labs noted, meds reviewed 07/08 icu, nv, on tv, labs reviewed, meds noted, no bleeding 07/09 icu, nv, meds noted, no bleeding, blood transfusion was completed 07/10 icu, nv, labs ntoed, no bleeding, hgb improved, hgb 7.8 07/11 icu, nv, labs reviewed, hgb is improved, for ivcf if stabilizes 07/12 icu, nv, labs reviewed, meds noted, no bleeding, remains on vent 07/13 icu, on vent, nv, no bleeding, labs reviewed, no major events, bowen rn 07/14 icu, on vent, nv, tolerating ngt feeds, bowen Rn, meds reviewed 07/15 icu, on vent, trach, tolerating ngt, meds noted, no bleeding 07/16 icu, vent, labs are noted, with trach, is stable, hgb 9.2 07/17 icu, had a bm overnight, remains on vent with trach, labs noted 07/18 icu, nv, labs are ntoed, no bleeding, on trach, on levophed 07/20 nc, icu, meds noted, v/t, no bleeding, labs noted, on versed 07/21 nv, trach/vent, tube feeds on hold, labs reviewed, icu 07/22 nv, icu, bp remains high, on v/t, labs noted, no bleeding 07/23 nv, ct is in place, on v/t, meds reviewed, in icu, on LEVO 07/24 nv, ct with blood secretions, to get 1 unit prbc today, icu 07/25 icu, nv, trach/v, obtunded, sedated, no bleeding, bowen rn 07/26 icu, nv, v/t, with gt, remains obtunded, as well as sedated, labs noted 07/27: no events. 07/28: remains intubated on vent 07/29 agitated, tachypneic, tachycardic is on vent, labs reviewed, meds noted 07/30 vent setting adjusted, is afebrile, no bleeding, tachycardic, labs noted Objective Objective Current Medications Medications (Trade) Dose Ordered Sig/Zelda Route PRN Reason Start Time Stop Time Status Last Admin Dose Admin Acetaminophen (Tylenol) 650 mg Q4H PRN NG Temp >100.5 07/27/20 03:45 08/26/20 03:44 07/29/20 20:24 Calcitonin [place] (Miacalcin) 1 sprays DAILY NASAL 07/22/20 14:00 10/20/20 13:59 07/29/20 08:21 Chlorhexidine Gluconate (Inna-Hex 2%) 1 applic DAILY@1999 TOPIC 07/20/20 20:00 10/18/20 19:59 07/29/20 19:55 Dextrose (Dextrose 50%) 25 ml Q30M PRN IV Hypoglycemia 06/05/20 10:45 09/03/20 10:44 Dextrose (Dextrose 50%) 50 ml Q30M PRN IV Hypoglycemia 06/05/20 10:45 09/03/20 10:44 Dextrose/Sodium Chloride 1,000 ml @ 50 mls/hr Q20H IV 07/25/20 11:15 08/24/20 11:14 07/29/20 14:54 Docusate Sodium (Colace) 100 mg TWICE A DAY NG 07/26/20 18:00 08/25/20 17:59 07/29/20 08:21 Enoxaparin Sodium (Lovenox) 110 mg EVERY 12 HOURS SUBQ 07/17/20 21:00 10/15/20 20:59 07/29/20 20:24 Fentanyl Citrate 250 ml @ 1 mls/hr Q24H IV 07/29/20 17:00 07/31/20 16:59 07/29/20 21:45 Guaifenesin/ Codeine Phosphate (Robitussin with codeine) 5 ml Q6H PRN NG For Cough 07/14/20 14:15 08/13/20 14:14 07/18/20 21:44 Lansoprazole (Prevacid) 30 mg DAILY GT 07/18/20 09:00 08/09/20 08:59 07/29/20 08:20 Meropenem 1 gm/ Sodium Chloride 55 ml @ 110 mls/hr Q8H IVPB 07/22/20 12:00 08/02/20 11:59 07/30/20 03:27 Midazolam HCl 200 ml @ 0 mls/hr Q24H PRN IV SEDATION 07/29/20 14:15 08/05/20 14:14 07/30/20 00:37 Midodrine (Pro-Amatine) 10 mg Q8HR GT 06/30/20 14:00 09/12/20 13:59 07/30/20 06:05 Polyethylene Glycol (Miralax) 17 gm BEDTIME ORAL 07/26/20 21:00 08/25/20 20:59 07/28/20 21:00 Quetiapine Fumarate (SEROqueL) 50 mg Q12HR GT 07/16/20 13:30 08/30/20 13:29 07/29/20 20:23 Last 24 Hour Vital Signs Date Time Temp Pulse Resp B/P (MAP) Pulse Ox O2 Delivery O2 Flow Rate FiO2 07/30/20 06:15 119 25 108/78 (88) 100 07/30/20 06:00 116 28 118/73 (88) 99 07/30/20 05:45 116 30 120/68 (85) 100 07/30/20 05:30 117 30 110/53 (72) 97 07/30/20 05:15 116 30 116/58 (77) 99 07/30/20 05:00 116 24 112/74 (87) 99 07/30/20 05:00 26 116/68 Mechanical Ventilator 60 07/30/20 05:00 26 116/58 Mechanical Ventilator 60 07/30/20 04:45 116 31 105/60 (75) 99 07/30/20 04:30 115 26 98/54 (69) 100 07/30/20 04:15 116 25 104/62 (76) 100 07/30/20 04:00 60 07/30/20 04:00 115 07/30/20 04:00 27 104/62 Mechanical Ventilator 60 07/30/20 04:00 27 104/62 Mechanical Ventilator 60 07/30/20 04:00 Mechanical Ventilator Mechanical Ventilator 07/30/20 04:00 97.8 115 28 122/62 (82) 99 07/30/20 03:45 115 30 116/63 (80) 100 07/30/20 03:30 116 31 106/60 (75) 100 07/30/20 03:15 116 30 55 07/30/20 03:15 114 48 105/70 (82) 100 07/30/20 03:00 116 41 108/69 (82) 99 07/30/20 03:00 32 105/70 Mechanical Ventilator 60 07/30/20 03:00 32 105/70 Mechanical Ventilator 60 07/30/20 02:45 116 38 106/70 (82) 99 07/30/20 02:30 115 43 113/64 (80) 99 07/30/20 02:15 115 36 119/60 (79) 99 07/30/20 02:00 43 119/60 Mechanical Ventilator 60 07/30/20 02:00 43 119/60 Mechanical Ventilator 60 07/30/20 02:00 113 35 117/68 (84) 100 07/30/20 01:45 112 21 107/66 (80) 100 07/30/20 01:30 111 31 118/74 (89) 100 07/30/20 01:15 96.5 112 20 113/73 (86) 100 07/30/20 01:00 112 48 114/76 (89) 100 07/30/20 01:00 25 113/73 Mechanical Ventilator 60 07/30/20 01:00 25 113/73 Mechanical Ventilator 60 07/30/20 00:45 113 23 110/78 (89) 100 07/30/20 00:37 26 126/79 Mechanical Ventilator 60 07/30/20 00:30 114 39 126/79 (95) 100 07/30/20 00:15 114 31 125/77 (93) 100 07/30/20 00:00 96.7 116 40 119/92 (101) 100 07/30/20 00:00 116 07/30/20 00:00 60 07/30/20 00:00 39 125/77 Mechanical Ventilator 60 07/30/20 00:00 39 125/77 Mechanical Ventilator 60 07/30/20 00:00 Mechanical Ventilator Mechanical Ventilator 07/29/20 23:45 117 55 110/70 (83) 100 07/29/20 23:30 115 63 129/86 (100) 99 07/29/20 23:15 115 37 120/84 (96) 99 07/29/20 23:15 117 16 60 07/29/20 23:00 47 120/84 Mechanical Ventilator 60 07/29/20 23:00 47 120/84 Mechanical Ventilator 60 07/29/20 23:00 116 26 92/78 (83) 100 07/29/20 22:45 116 23 100/73 (82) 100 07/29/20 22:35 117 28 114/69 (84) 100 07/29/20 22:00 97.7 113 21 96/54 (68) 100 07/29/20 22:00 26 114/69 Mechanical Ventilator 60 07/29/20 22:00 26 114/69 Mechanical Ventilator 60 07/29/20 21:45 114 15 101/48 (65) 100 07/29/20 21:45 19 97/56 Mechanical Ventilator 65 07/29/20 21:30 117 32 99/60 (73) 100 07/29/20 21:15 116 30 97/56 (70) 100 07/29/20 21:00 119 31 104/60 (75) 100 07/29/20 21:00 19 97/56 Mechanical Ventilator 65 07/29/20 21:00 19 97/56 Mechanical Ventilator 65 07/29/20 20:55 99.1 07/29/20 20:45 119 29 116/62 (80) 100 07/29/20 20:30 120 26 127/73 (91) 100 07/29/20 20:15 123 23 120/73 (89) 100 07/29/20 20:00 122 07/29/20 20:00 Mechanical Ventilator Mechanical Ventilator 07/29/20 20:00 26 100/60 Mechanical Ventilator 65 07/29/20 20:00 26 100/60 Mechanical Ventilator 65 07/29/20 20:00 99.3 124 26 120/77 (91) 100 07/29/20 20:00 65 07/29/20 19:45 126 48 123/84 (97) 81 07/29/20 19:30 123 44 125/77 (93) 84 07/29/20 19:20 125 28 65 07/29/20 19:15 120 41 128/70 (89) 84 07/29/20 19:00 41 125/92 Mechanical Ventilator 45 07/29/20 19:00 41 125/92 Mechanical Ventilator 45 07/29/20 19:00 124 48 125/92 (103) 91 07/29/20 18:30 115 31 121/69 (86) 87 07/29/20 18:00 36 127/70 Mechanical Ventilator 45 07/29/20 18:00 36 127/70 Mechanical Ventilator 45 07/29/20 18:00 117 35 113/80 (91) 92 07/29/20 17:30 116 33 114/75 (88) 94 07/29/20 17:00 116 33 119/75 (90) 85 07/29/20 17:00 34 109/71 Mechanical Ventilator 45 07/29/20 17:00 34 109/71 Mechanical Ventilator 45 07/29/20 16:30 119 54 107/72 (84) 88 07/29/20 16:00 Mechanical Ventilator Mechanical Ventilator Mechanical Ventilator 07/29/20 16:00 99.5 120 31 84/66 (72) 97 07/29/20 16:00 49 115/73 Mechanical Ventilator 45 07/29/20 16:00 49 115/73 Mechanical Ventilator 45 07/29/20 16:00 118 07/29/20 16:00 45 07/29/20 15:30 116 43 110/69 (83) 87 07/29/20 15:00 116 49 117/77 (90) 89 07/29/20 15:00 42 126/75 Mechanical Ventilator 45 07/29/20 15:00 42 126/75 Mechanical Ventilator 45 07/29/20 14:35 116 30 45 07/29/20 14:30 116 50 112/73 (86) 89 07/29/20 14:16 36 115/95 Mechanical Ventilator 45 07/29/20 14:16 51 112/73 Mechanical Ventilator 45 07/29/20 14:00 56 115/95 Mechanical Ventilator 45 07/29/20 14:00 114 55 120/80 (93) 91 07/29/20 13:30 110 56 117/73 (88) 91 07/29/20 13:23 113 30 45 07/29/20 13:00 113 56 110/69 (83) 90 07/29/20 13:00 56 105/78 Mechanical Ventilator 45 07/29/20 12:45 58 110/69 Mechanical Ventilator 45 07/29/20 12:30 113 57 97/71 (80) 90 07/29/20 12:30 43 113/72 Mechanical Ventilator 45 07/29/20 12:15 57 97/71 Mechanical Ventilator 45 07/29/20 12:00 111 07/29/20 12:00 45 07/29/20 12:00 55 116/61 Mechanical Ventilator 45 07/29/20 12:00 Mechanical Ventilator Mechanical Ventilator Mechanical Ventilator 07/29/20 12:00 98.3 113 58 111/72 (85) 87 07/29/20 11:45 46 111/72 Mechanical Ventilator 45 07/29/20 11:30 30 116/69 Mechanical Ventilator 45 07/29/20 11:30 111 58 100/66 (77) 89 07/29/20 11:15 58 100/66 Mechanical Ventilator 45 07/29/20 11:12 105 23 45 07/29/20 11:00 56 111/60 Mechanical Ventilator 45 07/29/20 11:00 107 26 110/79 (89) 94 07/29/20 10:30 107 24 101/67 (78) 98 07/29/20 10:00 108 25 106/67 (80) 98 07/29/20 10:00 24 104/64 Mechanical Ventilator 45 07/29/20 09:30 108 25 109/69 (82) 100 07/29/20 09:16 112 28 45 07/29/20 09:00 24 105/70 Mechanical Ventilator 45 07/29/20 09:00 110 25 109/81 (90) 99 07/29/20 08:30 112 27 105/63 (77) 99 07/29/20 08:00 45 07/29/20 08:00 119 07/29/20 08:00 30 107/68 Mechanical Ventilator 45 07/29/20 08:00 30 107/68 Mechanical Ventilator 45 07/29/20 08:00 99.8 116 45 98/59 (72) 98 07/29/20 08:00 Mechanical Ventilator Mechanical Ventilator Mechanical Ventilator 07/29/20 07:30 118 31 96/64 (75) 97 07/29/20 07:19 120 32 45 07/29/20 07:00 121 40 119/68 (85) 94 07/29/20 07:00 43 119/68 Mechanical Ventilator 45 07/29/20 07:00 43 119/68 Mechanical Ventilator 45 07/29/20 06:46 38 118/74 Mechanical Ventilator 45 07/29/20 06:46 100.3 07/29/20 06:00 100.1 127 45 130/66 (87) 89 07/29/20 06:00 46 130/66 Mechanical Ventilator 45 07/29/20 06:00 43 133/66 Mechanical Ventilator 45 07/29/20 05:45 125 56 120/50 (73) 100 07/29/20 05:30 127 46 117/71 (86) 84 07/29/20 05:15 123 50 115/80 (92) 85 07/29/20 05:00 99.7 122 45 126/107 (113) 86 07/29/20 05:00 43 115/80 Mechanical Ventilator 45 07/29/20 05:00 43 115/80 Mechanical Ventilator 45 07/29/20 04:45 121 37 123/71 (88) 82 07/29/20 04:30 119 32 118/77 (91) 91 07/29/20 04:15 118 33 125/86 (99) 93 07/29/20 04:00 33 106/75 Mechanical Ventilator 45 07/29/20 04:00 33 106/75 Mechanical Ventilator 45 07/29/20 04:00 Mechanical Ventilator Mechanical Ventilator Mechanical Ventilator 07/29/20 04:00 115 07/29/20 04:00 45 07/29/20 04:00 119 33 106/75 (85) 100 07/29/20 03:45 117 31 107/75 (86) 92 07/29/20 03:30 115 28 45 07/29/20 03:30 99.1 117 32 121/68 (85) 92 07/29/20 03:15 117 37 118/71 (87) 86 07/29/20 03:00 27 99/73 Mechanical Ventilator 45 07/29/20 03:00 27 99/73 Mechanical Ventilator 45 07/29/20 03:00 115 27 99/73 (82) 92 07/29/20 02:45 116 32 112/84 (93) 93 07/29/20 02:30 113 30 116/65 (82) 98 07/29/20 02:15 115 29 131/61 (84) 93 07/29/20 02:00 116 31 120/70 (87) 90 07/29/20 02:00 31 120/70 Mechanical Ventilator 45 07/29/20 02:00 31 120/70 Mechanical Ventilator 45 07/29/20 01:45 117 56 120/77 (91) 88 07/29/20 01:30 105 32 121/73 (89) 85 07/29/20 01:15 110 35 122/83 (96) 85 07/29/20 01:00 104 43 95/62 (73) 99 07/29/20 01:00 43 95/62 Mechanical Ventilator 45 07/29/20 01:00 43 95/62 Mechanical Ventilator 45 07/29/20 00:45 103 52 93/61 (72) 99 07/29/20 00:30 98.8 105 33 103/67 (79) 100 07/29/20 00:15 104 46 99/59 (72) 100 07/29/20 00:00 110 07/29/20 00:00 106 47 102/53 (69) 100 07/29/20 00:00 Mechanical Ventilator Mechanical Ventilator Mechanical Ventilator 07/29/20 00:00 36 103/67 Mechanical Ventilator 45 07/29/20 00:00 36 103/67 Mechanical Ventilator 45 07/28/20 23:45 107 54 105/61 (76) 100 07/28/20 23:30 108 26 45 07/28/20 23:30 109 51 105/66 (79) 98 07/28/20 23:15 110 42 102/54 (70) 97 07/28/20 23:00 38 113/58 Mechanical Ventilator 45 07/28/20 23:00 38 113/58 Mechanical Ventilator 45 07/28/20 23:00 99.2 110 19 113/58 (76) 100 07/28/20 22:45 110 26 102/69 (80) 99 07/28/20 22:42 30 113/61 Mechanical Ventilator 45 07/28/20 22:30 111 32 113/61 (78) 99 07/28/20 22:15 115 33 102/71 (81) 96 07/28/20 22:00 33 102/71 Mechanical Ventilator 45 07/28/20 22:00 33 102/71 Mechanical Ventilator 45 07/28/20 22:00 115 26 112/63 (79) 90 07/28/20 21:45 114 39 105/68 (80) 96 07/28/20 21:30 115 32 118/65 (82) 93 07/28/20 21:15 116 33 119/72 (88) 95 07/28/20 21:00 119 38 121/69 (86) 91 07/28/20 21:00 36 119/72 Mechanical Ventilator 45 07/28/20 21:00 36 119/72 Mechanical Ventilator 45 07/28/20 20:45 116 40 116/81 (93) 96 07/28/20 20:30 115 33 117/70 (86) 96 07/28/20 20:15 112 38 128/75 (92) 94 07/28/20 20:00 108 07/28/20 20:00 35 128/75 Mechanical Ventilator 45 07/28/20 20:00 35 128/75 Mechanical Ventilator 45 07/28/20 20:00 45 07/28/20 20:00 98.6 111 36 135/62 (86) 99 07/28/20 20:00 Mechanical Ventilator Mechanical Ventilator Mechanical Ventilator 07/28/20 19:45 109 48 133/71 (91) 94 07/28/20 19:30 109 41 45 07/28/20 19:30 112 35 138/79 (98) 90 07/28/20 19:30 37 133/71 Mechanical Ventilator 45 07/28/20 19:30 37 133/71 Mechanical Ventilator 45 07/28/20 19:15 110 42 144/86 (105) 89 07/28/20 19:00 111 39 128/77 (94) 92 07/28/20 18:00 32 118/68 Mechanical Ventilator 45 07/28/20 18:00 32 118/68 Mechanical Ventilator 45 07/28/20 18:00 106 31 100/60 (73) 95 07/28/20 17:03 95 24 45 07/28/20 17:00 98.9 107 37 113/89 (97) 93 07/28/20 17:00 30 91/59 Mechanical Ventilator 45 07/28/20 17:00 30 91/59 Mechanical Ventilator 45 07/28/20 16:00 45 07/28/20 16:00 95 31 88/54 (65) 100 07/28/20 16:00 94 07/28/20 16:00 30 93/66 Mechanical Ventilator 45 07/28/20 16:00 30 93/66 Mechanical Ventilator 45 07/28/20 16:00 Mechanical Ventilator Mechanical Ventilator Mechanical Ventilator 07/28/20 15:00 95 35 101/59 (73) 100 07/28/20 15:00 17 101/59 Mechanical Ventilator 45 07/28/20 15:00 17 101/59 Mechanical Ventilator 45 07/28/20 14:43 97 23 45 07/28/20 14:00 77 17 105/61 (76) 100 07/28/20 14:00 27 98/68 Mechanical Ventilator 45 07/28/20 14:00 27 98/68 Mechanical Ventilator 45 07/28/20 13:00 18 101/64 Mechanical Ventilator 45 07/28/20 13:00 17 101/64 Mechanical Ventilator 45 07/28/20 13:00 106 26 99/61 (74) 92 07/28/20 12:43 103 27 45 07/28/20 12:00 102 07/28/20 12:00 99 34 94/60 (71) 100 07/28/20 12:00 45 07/28/20 12:00 30 94/59 Mechanical Ventilator 45 07/28/20 12:00 30 94/59 Mechanical Ventilator 45 07/28/20 12:00 Mechanical Ventilator Mechanical Ventilator Mechanical Ventilator 07/28/20 12:00 99.4 07/28/20 11:18 104 25 45 07/28/20 11:00 102 30 100/52 (68) 99 07/28/20 11:00 30 93/55 Mechanical Ventilator 45 07/28/20 11:00 30 93/58 Mechanical Ventilator 45.0 07/28/20 10:00 30 94/49 Mechanical Ventilator 45 07/28/20 10:00 30 94/49 Mechanical Ventilator 45 07/28/20 10:00 104 29 88/64 (72) 100 07/28/20 09:10 99 27 45 07/28/20 09:04 31 108/71 Mechanical Ventilator 45 07/28/20 09:04 31 108/71 Mechanical Ventilator 45 07/28/20 09:00 106 29 118/62 (80) 100 07/28/20 08:00 108 07/28/20 08:00 45 07/28/20 08:00 30 99/58 Mechanical Ventilator 45.0 45 07/28/20 08:00 30 99/58 Mechanical Ventilator 45 07/28/20 08:00 99.5 105 42 97/67 (77) 97 07/28/20 08:00 Mechanical Ventilator Mechanical Ventilator Mechanical Ventilator 07/28/20 07:18 106 26 45 07/28/20 07:00 112 42 120/76 (91) 90 07/28/20 07:00 21 118/77 Mechanical Ventilator 45 07/28/20 07:00 21 118/77 Mechanical Ventilator 45 Intake and Output 07/29/20 07/30/20 19:00 07:00 Intake Total 1512.10 ml 1035 ml Output Total 520 ml 515 ml Balance 992.10 ml 520 ml Free Water 100 ml 200 ml IV Total 917.10 ml 835 ml Tube Feeding 495 ml 0 ml Output Urine Total 520 ml 515 ml # Bowel Movements 1 2 Labs Test 07/28/20 05:55 07/29/20 04:10 07/30/20 03:30 White Blood Count 11.8 K/UL (4.8-10.8) 11.7 K/UL (4.8-10.8) 13.0 K/UL (4.8-10.8) Red Blood Count 3.05 M/UL (4.20-5.40) 3.31 M/UL (4.20-5.40) 3.00 M/UL (4.20-5.40) Hemoglobin 8.8 G/DL (12.0-16.0) 9.5 G/DL (12.0-16.0) 8.5 G/DL (12.0-16.0) Hematocrit 28.8 % (37.0-47.0) 31.7 % (37.0-47.0) 28.4 % (37.0-47.0) Mean Corpuscular Volume 94 FL (80-99) 96 FL (80-99) 95 FL (80-99) Mean Corpuscular Hemoglobin 28.7 PG (27.0-31.0) 28.7 PG (27.0-31.0) 28.2 PG (27.0-31.0) Mean Corpuscular Hemoglobin Concent 30.4 G/DL (32.0-36.0) 30.0 G/DL (32.0-36.0) 29.8 G/DL (32.0-36.0) Red Cell Distribution Width 17.6 % (11.6-14.8) 17.9 % (11.6-14.8) 17.8 % (11.6-14.8) Platelet Count 257 K/UL (150-450) 295 K/UL (150-450) 266 K/UL (150-450) Mean Platelet Volume 7.7 FL (6.5-10.1) 8.2 FL (6.5-10.1) 7.5 FL (6.5-10.1) Neutrophils (%) (Auto) 54.7 % (45.0-75.0) 49.2 % (45.0-75.0) 68.2 % (45.0-75.0) Lymphocytes (%) (Auto) 27.6 % (20.0-45.0) 28.1 % (20.0-45.0) 19.7 % (20.0-45.0) Monocytes (%) (Auto) 7.0 % (1.0-10.0) 5.3 % (1.0-10.0) 6.7 % (1.0-10.0) Eosinophils (%) (Auto) 9.8 % (0.0-3.0) 16.6 % (0.0-3.0) 4.8 % (0.0-3.0) Basophils (%) (Auto) 0.9 % (0.0-2.0) 0.9 % (0.0-2.0) 0.6 % (0.0-2.0) Sodium Level 145 MMOL/L (136-145) 143 MMOL/L (136-145) 144 MMOL/L (136-145) Potassium Level 4.3 MMOL/L (3.5-5.1) 4.6 MMOL/L (3.5-5.1) 4.8 MMOL/L (3.5-5.1) Chloride Level 104 MMOL/L (98-107) 103 MMOL/L (98-107) 103 MMOL/L (98-107) Carbon Dioxide Level 38 MMOL/L (21-32) 39 MMOL/L (21-32) 40 MMOL/L (21-32) Anion Gap 3 mmol/L (5-15) 1 mmol/L (5-15) -1 mmol/L (5-15) Blood Urea Nitrogen 4 mg/dL (7-18) 3 mg/dL (7-18) 4 mg/dL (7-18) Creatinine 0.4 MG/DL (0.55-1.30) 0.3 MG/DL (0.55-1.30) 0.5 MG/DL (0.55-1.30) Estimat Glomerular Filtration Rate > 60 mL/min (>60) > 60 mL/min (>60) > 60 mL/min (>60) Glucose Level 119 MG/DL (74-106) 128 MG/DL (74-106) 121 MG/DL (74-106) Calcium Level 8.1 MG/DL (8.5-10.1) 8.3 MG/DL (8.5-10.1) 8.1 MG/DL (8.5-10.1) Phosphorus Level 1.9 MG/DL (2.5-4.9) 2.8 MG/DL (2.5-4.9) Magnesium Level 1.5 MG/DL (1.8-2.4) 1.8 MG/DL (1.8-2.4) Total Bilirubin 0.6 MG/DL (0.2-1.0) 0.5 MG/DL (0.2-1.0) 0.4 MG/DL (0.2-1.0) Aspartate Amino Transf (AST/SGOT) 21 U/L (15-37) 26 U/L (15-37) 21 U/L (15-37) Alanine Aminotransferase (ALT/SGPT) 16 U/L (12-78) 21 U/L (12-78) 18 U/L (12-78) Alkaline Phosphatase 65 U/L (46-116) 71 U/L (46-116) 72 U/L (46-116) Total Protein 6.6 G/DL (6.4-8.2) 6.9 G/DL (6.4-8.2) 6.5 G/DL (6.4-8.2) Albumin 2.2 G/DL (3.4-5.0) 2.3 G/DL (3.4-5.0) 2.2 G/DL (3.4-5.0) Globulin 4.4 g/dL 4.6 g/dL 4.3 g/dL Albumin/Globulin Ratio 0.5 (1.0-2.7) 0.5 (1.0-2.7) 0.5 (1.0-2.7) C-Reactive Protein, Quantitative 5.9 mg/dL (0.00-0.90) Pro-B-Type Natriuretic Peptide 489 pg/mL (0-125) Prothrombin Time 12.5 SEC (9.30-11.50) Prothromb Time International Ratio 1.1 (0.9-1.1) Activated Partial Thromboplast Time 33 SEC (23-33) Height (Feet): 5 Height (Inches): 5.00 Weight (Pounds): 223 Objective GeNL: nv HEENT: ngt++ Pulm: vent/trach++ CV: rrr Abd: soft, nt, nd ++gt Ext: no cce Myron Condon MD Jul 30, 2020 06:26
--- NOTE | 2020-07-30 07:25 | NUR ---
Report given to RAKEL Reyes who assumed care of patient. Pt in NAD upon hand-off, VSS.
--- NOTE | 2020-07-30 08:30 | NUR ---
RESPIRATORY NOTE: Pt placed on CPAP 5 PS 8 FiO2 40%. Pt desat to 88%, RR increased to 40's. RSBI is >100. After 7 minutes, pt placed back on AC mode.
[2020-07-30] MEDS: Docusate 100mg/10ml Liq NG SCH ×2 (08:41→17:46)
[2020-07-30] MEDS: Enoxaparin 120 mg inj SUBQ SCH ×2 (08:44→20:45)
--- NOTE | 2020-07-30 09:03 | Nephrology Progress Note ---
Assessment/Plan Problem List: (1) DEVENDRA (acute kidney injury) (2) Morbid obesity (3) Diabetes mellitus out of control (4) Pneumonia due to COVID-19 virus (5) Respiratory failure Assessment Acute renal failure Obstructive uropathy, clogged [place] Respiratory failure COVID-19 pneumonia Morbid obesity Plan July 30: Status quo. Labs reviewed. Medication list reviewed. Stable from renal standpoint of view. Patient is full code, trached and vent, also has PEG. July 29: Status quo. Discussed with RN. Labs and medication list reviewed. Stable from renal standpoint of view. July 28: Full code. Labs reviewed. Abnormal electrolytes addressed. Medication list reviewed. Patient has trach and PEG and on ventilator. Continue per consultants. July 27: Full code. In ICU. Trach to vent. Labs reviewed. Renal parameters and electrolytes stable. July 26: Remains in ICU. Remains full code. Trach to vent. Labs reviewed. Abnormal electrolytes addressed. Continue per consultants. July 25: Seen in ICU. Received PEG yesterday. Has trach connected to vent. Full code. Labs reviewed. Albumin bolus given. IV started on table feeding via GT tube initiated. July 24: Patient seen in ICU. Status quo. Has trach. Being ventilated. Has right chest tube. Labs reviewed. Continue per consultants. Low magnesium and low phosphorus replaced. July 23: Patient seen in ICU. Discussed with RN. Yesterday the patient developed tension pneumothorax. Patient has a chest tube today. Labs reviewed. Renal parameters stable. Medication list reviewed. July 22: Status quo. Labs reviewed. Serum calcium elevated. Vitamin D discontinued. Pamidronate 60 mg IV given. Continue to monitor calcium and phosphorus. Patient due for PEG today. July 21: Status quo. Awake responsive. Labs reviewed. Medication list reviewed. Stable from renal standpoint of view. Due for PEG tomorrow. Continue her current management. July 20: Status quo. PEG procedure deferred to July 22. Patient remains full code. Abnormal electrolytes addressed. FiO2 50% unchanged. Continue per consultants. July 19: Status quo. Due for PEG insertion today. Remains full code. Trach and vent. Low magnesium addressed. Continue per consultants. FiO2 50%. July 18: Status quo. Labs reviewed. Low potassium addressed. Continue per consultants. Remains full code. July 17: Remains full code. Trach to vent. FiO2 40%. Labs reviewed. Low potassium addressed. Continue per consultants. July 16: Status quo. FiO2 45%. Discussed with RN. Continue to taper her mind altering medications and sedatives. Stable from renal standpoint of view. Abnormal electrolytes addressed. July 15: Full code. FiO2 50%. Intubated on ventilator. No labs drawn today. Continue per consultants. July 14: Status quo. FiO2 50%. Labs reviewed. Renal parameters stable. Continue per current treatment plan and consultants. Medication list reviewed. July 13: FiO2 60% unchanged. Labs reviewed. Renal parameters stable. Medication list reviewed. Continue per consultants. July 12: Full code. Labs reviewed. Normal electrolytes addressed. Continue per pulmonary. Medication list reviewed. July 11: Remains full code. On ventilator. FiO2 down to 65%. Renal parameters stable. Low magnesium addressed. Continue her current management. July 10: Full code. On ventilator. FiO2 70%. Hemoglobin mid sevens. Renal parameters stable. Continue per consultants. July 09: Labs reviewed. Renal parameters stable. FiO2 80% unchanged. Continue per pulmonary. July 08: Labs reviewed. Renal parameters and electrolytes stable. ABG suggestive of high PCO2. At this time patient is on FiO2 of 80%. Continue per pulmonary. Continue to monitor renal parameters. July 07: No CHEM panel drawn today. More potassium given. Continue to monitor renal parameters. Continue per consultants. Discussed with RAKEL Veras. July 06: Low potassium addressed. Albumin bolus for low BP given. Patient remains full code. Continue to monitor electrolytes and renal parameters. Continue per consultants. Hemoglobin low today, transfusion per senior etl developer. July 05: Trach to vent. FiO2 80%. Renal parameters stable. PCO2 remains high at 44. Continue to monitor renal parameters. July 04: Patient now trach. Full code. Labs reviewed. Renal parameters stable. Low magnesium addressed. July 03: Intubated. Full code. Labs reviewed. Abnormal electrolytes addressed. Continue per consultants. Overall status unchanged. July 02: Remains intubated. Remains full code. Remains on FiO2 of 70%. Labs reviewed. Abnormal electrolytes addressed. Continue per pulmonary. July 01: Remains on 70% FiO2. Full code. Intubated on ventilator. Retaining CO2. Discussed with RN. Will do ABG today. Albumin bolus given. 1 dose of Diamox given. June 30: Status quo. Labs reviewed. Abnormal electrolytes addressed. Remains full code. Remains on ventilator. Magnesium sulfate 4 gram IVPB given. June 29: Full code. Intubated on ventilator. Labs reviewed. Stable from renal standpoint of view. Continue per consultants. June 28: Remains full code. Remains intubated on ventilator. Labs reviewed. Vitamin D supplement ordered. Continue to monitor renal parameters. Continue per consultants. June 27: Remains full code. Intubated on ventilator. Labs reviewed. Abnormal electrolyte addressed. Continue to monitor renal parameters and electrolytes. Continue per consultants. June 26: Labs reviewed. Remains full code. Remains intubated. Back on NGT feeding. Continue to monitor renal parameters. June 25: Labs reviewed. Renal parameters stable. Remains full code. Due to positional status patient could not be fed via NG tube. Starting TPN? Is being entertained. Continue per consultants. June 24: Labs reviewed. Renal parameters stable. Remains full code. Remains intubated on ventilator. Continue per consultants. June 23: Labs reviewed. Renal parameters stable. Discussed with RN. Abnormal electrolyte addressed. Remains full code. Remains on ventilator. Continue per consultants. June 22: Labs reviewed. Low potassium addressed. Discussed with RAKEL Moran. Patient full code. Remains on ventilator. Continue to monitor renal parameters. June 21. Labs reviewed. Abnormal electrolyte addressed. Full code. Remains on ventilator. Medication list reviewed. Continue per pulmonary management. DC IV fluid, resume Lasix daily, check chest x-ray. June 20: Labs reviewed. Abnormal electrolytes. Patient remains full code. Continue per consultants. Noted and addressed June 19: Labs reviewed. Abnormal electrolytes noted and addressed. Remains intubated on ventilator. Remains full code. June 18: Labs reviewed. Remains intubated on ventilator. Full code. Abnormal electrolyte addressed. Continue as is. June 17: Labs reviewed. Abnormal electrolytes addressed. Patient remains full code and intubated on ventilator. Continue per consultants. Renal parameters are within normal limits. June 16: Labs reviewed. Potassium chloride replaced. Remains full code. Remains intubated on ventilator. Continue per consultants. Continue to monitor renal parameters. June 15: Labs reviewed. Serum creatinine 1. Stable from renal standpoint to view. Continue per consultants. June 14: Labs reviewed. Full code. Serum creatinine of 3.5 down to 1.4. Low potassium addressed. Continue per current treatment plan. Continue to monitor renal parameters. Midodrine started. Albumin bolus given. Previously: DC Lasix drip Increase Protonix dose Monitor renal parameters, electrolytes Per orders Subjective ROS Limited/Unobtainable: Yes Objective Objective Last 24 Hour Vital Signs Date Time Temp Pulse Resp B/P (MAP) Pulse Ox O2 Delivery O2 Flow Rate FiO2 07/30/20 06:15 119 25 108/78 (88) 100 07/30/20 06:00 116 28 118/73 (88) 99 07/30/20 05:45 116 30 120/68 (85) 100 07/30/20 05:30 117 30 110/53 (72) 97 07/30/20 05:15 116 30 116/58 (77) 99 07/30/20 05:00 116 24 112/74 (87) 99 07/30/20 05:00 26 116/68 Mechanical Ventilator 60 07/30/20 05:00 26 116/58 Mechanical Ventilator 60 07/30/20 04:45 116 31 105/60 (75) 99 07/30/20 04:30 115 26 98/54 (69) 100 07/30/20 04:15 116 25 104/62 (76) 100 07/30/20 04:00 60 07/30/20 04:00 115 07/30/20 04:00 27 104/62 Mechanical Ventilator 60 07/30/20 04:00 27 104/62 Mechanical Ventilator 60 07/30/20 04:00 Mechanical Ventilator Mechanical Ventilator 07/30/20 04:00 97.8 115 28 122/62 (82) 99 07/30/20 03:45 115 30 116/63 (80) 100 07/30/20 03:30 116 31 106/60 (75) 100 07/30/20 03:15 116 30 55 07/30/20 03:15 114 48 105/70 (82) 100 07/30/20 03:00 116 41 108/69 (82) 99 07/30/20 03:00 32 105/70 Mechanical Ventilator 60 07/30/20 03:00 32 105/70 Mechanical Ventilator 60 07/30/20 02:45 116 38 106/70 (82) 99 07/30/20 02:30 115 43 113/64 (80) 99 07/30/20 02:15 115 36 119/60 (79) 99 07/30/20 02:00 43 119/60 Mechanical Ventilator 60 07/30/20 02:00 43 119/60 Mechanical Ventilator 60 07/30/20 02:00 113 35 117/68 (84) 100 07/30/20 01:45 112 21 107/66 (80) 100 07/30/20 01:30 111 31 118/74 (89) 100 07/30/20 01:15 96.5 112 20 113/73 (86) 100 07/30/20 01:00 112 48 114/76 (89) 100 07/30/20 01:00 25 113/73 Mechanical Ventilator 60 07/30/20 01:00 25 113/73 Mechanical Ventilator 60 07/30/20 00:45 113 23 110/78 (89) 100 07/30/20 00:37 26 126/79 Mechanical Ventilator 60 07/30/20 00:30 114 39 126/79 (95) 100 07/30/20 00:15 114 31 125/77 (93) 100 07/30/20 00:00 96.7 116 40 119/92 (101) 100 07/30/20 00:00 116 07/30/20 00:00 60 07/30/20 00:00 39 125/77 Mechanical Ventilator 60 07/30/20 00:00 39 125/77 Mechanical Ventilator 60 07/30/20 00:00 Mechanical Ventilator Mechanical Ventilator 07/29/20 23:45 117 55 110/70 (83) 100 07/29/20 23:30 115 63 129/86 (100) 99 07/29/20 23:15 115 37 120/84 (96) 99 07/29/20 23:15 117 16 60 07/29/20 23:00 47 120/84 Mechanical Ventilator 60 07/29/20 23:00 47 120/84 Mechanical Ventilator 60 07/29/20 23:00 116 26 92/78 (83) 100 07/29/20 22:45 116 23 100/73 (82) 100 07/29/20 22:35 117 28 114/69 (84) 100 07/29/20 22:00 97.7 113 21 96/54 (68) 100 07/29/20 22:00 26 114/69 Mechanical Ventilator 60 07/29/20 22:00 26 114/69 Mechanical Ventilator 60 07/29/20 21:45 114 15 101/48 (65) 100 07/29/20 21:45 19 97/56 Mechanical Ventilator 65 07/29/20 21:30 117 32 99/60 (73) 100 07/29/20 21:15 116 30 97/56 (70) 100 07/29/20 21:00 119 31 104/60 (75) 100 07/29/20 21:00 19 97/56 Mechanical Ventilator 65 07/29/20 21:00 19 97/56 Mechanical Ventilator 65 07/29/20 20:55 99.1 07/29/20 20:45 119 29 116/62 (80) 100 07/29/20 20:30 120 26 127/73 (91) 100 07/29/20 20:15 123 23 120/73 (89) 100 07/29/20 20:00 122 07/29/20 20:00 Mechanical Ventilator Mechanical Ventilator 07/29/20 20:00 26 100/60 Mechanical Ventilator 65 07/29/20 20:00 26 100/60 Mechanical Ventilator 65 07/29/20 20:00 99.3 124 26 120/77 (91) 100 07/29/20 20:00 65 07/29/20 19:45 126 48 123/84 (97) 81 07/29/20 19:30 123 44 125/77 (93) 84 07/29/20 19:20 125 28 65 07/29/20 19:15 120 41 128/70 (89) 84 07/29/20 19:00 41 125/92 Mechanical Ventilator 45 07/29/20 19:00 41 125/92 Mechanical Ventilator 45 07/29/20 19:00 124 48 125/92 (103) 91 07/29/20 18:30 115 31 121/69 (86) 87 07/29/20 18:00 36 127/70 Mechanical Ventilator 45 07/29/20 18:00 36 127/70 Mechanical Ventilator 45 07/29/20 18:00 117 35 113/80 (91) 92 07/29/20 17:30 116 33 114/75 (88) 94 07/29/20 17:00 116 33 119/75 (90) 85 07/29/20 17:00 34 109/71 Mechanical Ventilator 45 07/29/20 17:00 34 109/71 Mechanical Ventilator 45 07/29/20 16:30 119 54 107/72 (84) 88 07/29/20 16:00 Mechanical Ventilator Mechanical Ventilator Mechanical Ventilator 07/29/20 16:00 99.5 120 31 84/66 (72) 97 07/29/20 16:00 49 115/73 Mechanical Ventilator 45 07/29/20 16:00 49 115/73 Mechanical Ventilator 45 07/29/20 16:00 118 07/29/20 16:00 45 07/29/20 15:30 116 43 110/69 (83) 87 07/29/20 15:00 116 49 117/77 (90) 89 07/29/20 15:00 42 126/75 Mechanical Ventilator 45 07/29/20 15:00 42 126/75 Mechanical Ventilator 45 07/29/20 14:35 116 30 45 07/29/20 14:30 116 50 112/73 (86) 89 07/29/20 14:16 36 115/95 Mechanical Ventilator 45 07/29/20 14:16 51 112/73 Mechanical Ventilator 45 07/29/20 14:00 56 115/95 Mechanical Ventilator 45 07/29/20 14:00 114 55 120/80 (93) 91 07/29/20 13:30 110 56 117/73 (88) 91 07/29/20 13:23 113 30 45 07/29/20 13:00 113 56 110/69 (83) 90 07/29/20 13:00 56 105/78 Mechanical Ventilator 45 07/29/20 12:45 58 110/69 Mechanical Ventilator 45 07/29/20 12:30 113 57 97/71 (80) 90 07/29/20 12:30 43 113/72 Mechanical Ventilator 45 07/29/20 12:15 57 97/71 Mechanical Ventilator 45 07/29/20 12:00 111 07/29/20 12:00 45 07/29/20 12:00 55 116/61 Mechanical Ventilator 45 07/29/20 12:00 Mechanical Ventilator Mechanical Ventilator Mechanical Ventilator 07/29/20 12:00 98.3 113 58 111/72 (85) 87 07/29/20 11:45 46 111/72 Mechanical Ventilator 45 07/29/20 11:30 30 116/69 Mechanical Ventilator 45 07/29/20 11:30 111 58 100/66 (77) 89 07/29/20 11:15 58 100/66 Mechanical Ventilator 45 07/29/20 11:12 105 23 45 07/29/20 11:00 56 111/60 Mechanical Ventilator 45 07/29/20 11:00 107 26 110/79 (89) 94 07/29/20 10:30 107 24 101/67 (78) 98 07/29/20 10:00 108 25 106/67 (80) 98 07/29/20 10:00 24 104/64 Mechanical Ventilator 45 07/29/20 09:30 108 25 109/69 (82) 100 07/29/20 09:16 112 28 45 Intake and Output 07/29/20 07/30/20 19:00 07:00 Intake Total 1512.10 ml 1035 ml Output Total 520 ml 515 ml Balance 992.10 ml 520 ml Free Water 100 ml 200 ml IV Total 917.10 ml 835 ml Tube Feeding 495 ml 0 ml Output Urine Total 520 ml 515 ml # Bowel Movements 1 2 Current Medications Medications (Trade) Dose Ordered Sig/Zelda Route PRN Reason Start Time Stop Time Status Last Admin Dose Admin Acetaminophen (Tylenol) 650 mg Q4H PRN NG Temp >100.5 07/27/20 03:45 08/26/20 03:44 07/29/20 20:24 Calcitonin Thornton (Miacalcin) 1 sprays DAILY NASAL 07/22/20 14:00 10/20/20 13:59 07/30/20 08:44 Chlorhexidine Gluconate (Inna-Hex 2%) 1 applic DAILY@2000 TOPIC 07/20/20 20:00 10/18/20 19:59 07/29/20 19:55 Dextrose (Dextrose 50%) 25 ml Q30M PRN IV Hypoglycemia 06/05/20 10:45 09/03/20 10:44 Dextrose (Dextrose 50%) 50 ml Q30M PRN IV Hypoglycemia 06/05/20 10:45 09/03/20 10:44 Dextrose/Sodium Chloride 1,000 ml @ 50 mls/hr Q20H IV 07/25/20 11:15 08/24/20 11:14 07/29/20 14:54 Docusate Sodium (Colace) 100 mg TWICE A DAY NG 07/26/20 18:00 08/25/20 17:59 07/30/20 08:41 Enoxaparin Sodium (Lovenox) 110 mg EVERY 12 HOURS SUBQ 07/17/20 21:00 10/15/20 20:59 07/30/20 08:44 Fentanyl Citrate 250 ml @ 1 mls/hr Q24H IV 07/29/20 17:00 07/31/20 16:59 07/29/20 21:45 Guaifenesin/ Codeine Phosphate (Robitussin with codeine) 5 ml Q6H PRN NG For Cough 07/14/20 14:15 08/13/20 14:14 07/18/20 21:44 Lansoprazole (Prevacid) 30 mg DAILY GT 07/18/20 09:00 08/09/20 08:59 07/30/20 08:42 Meropenem 1 gm/ Sodium Chloride 55 ml @ 110 mls/hr Q8H IVPB 07/22/20 12:00 08/02/20 11:59 07/30/20 03:27 Midazolam HCl 200 ml @ 0 mls/hr Q24H PRN IV SEDATION 07/29/20 14:15 08/05/20 14:14 07/30/20 00:37 Midodrine (Pro-Amatine) 10 mg Q8HR GT 06/30/20 14:00 09/12/20 13:59 07/30/20 06:05 Polyethylene Glycol (Miralax) 17 gm BEDTIME ORAL 07/26/20 21:00 08/25/20 20:59 07/28/20 21:00 Quetiapine Fumarate (SEROqueL) 50 mg Q12HR GT 07/16/20 13:30 08/30/20 13:29 07/30/20 08:42 Laboratory Tests 07/30/20 03:30: White Blood Count 13.0H, Red Blood Count 3.00L, Hemoglobin 8.5L, Hematocrit 28.4L, Mean Corpuscular Volume 95, Mean Corpuscular Hemoglobin 28.2, Mean Corpuscular Hemoglobin Concent 29.8L, Red Cell Distribution Width 17.8H, Platelet Count 266, Mean Platelet Volume 7.5, Neutrophils (%) (Auto) 68.2, Lymph ocytes (%) (Auto) 19.7L, Monocytes (%) (Auto) 6.7, Eosinophils (%) (Auto) 4.8H, Basophils (%) (Auto) 0.6, Prothrombin Time 12.5H, Prothromb Time International Ratio 1.1, Activated Partial Thromboplast Time 33, Sodium Level 144, Potassium Level 4.8, Chloride Level 103, Carbon Dioxide Level 40H, Anion Gap -1L, Blood Urea Nitrogen 4L, Creatinine 0.5#L, Estimat Glomerular Filtration Rate > 60, Glucose Level 121H, Calcium Level 8.1L, Total Bilirubin 0.4, Aspartate Amino Transf (AST/SGOT) 21, Alanine Aminotransferase (ALT/SGPT) 18, Alkaline Phosphatase 72, Total Protein 6.5, Albumin 2.2L, Globulin 4.3, Albumin/Globulin Ratio 0.5L Height (Feet): 5 Height (Inches): 5.00 Weight (Pounds): 223 General Appearance: no apparent distress EENT: other - Trach to vent Cardiovascular: tachycardia Respiratory/Chest: decreased breath sounds Abdomen: distended Rigo Tyler MD Jul 30, 2020 09:03
--- NOTE | 2020-07-30 10:59 | Pulmonology Progress Note ---
Subjective ROS Limited/Unobtainable: Yes Interval Events: Chest tube removed (07/29), however noted persistent PTX on CXR Constitutional: Reports: fever, other - resolved HEENT: Repors: no symptoms Respiratory: Reports: no symptoms Cardiovascular: Reports: no symptoms Gastrointestinal/Abdominal: Reports: vomiting Genitourinary: Reports: no symptoms Allergies: Coded Allergies: No Known Allergies (Unverified , 05/28/20) All Systems: reviewed and negative except above Objective Last 24 Hour Vital Signs Date Time Temp Pulse Resp B/P (MAP) Pulse Ox O2 Delivery O2 Flow Rate FiO2 07/30/20 10:00 115 28 104/56 (72) 100 07/30/20 09:30 115 30 103/58 (73) 100 07/30/20 09:00 115 30 115/66 (82) 100 07/30/20 08:30 114 36 114/63 (80) 99 07/30/20 08:00 98.4 40 100/67 (78) 100 07/30/20 08:00 114 07/30/20 08:00 60 07/30/20 07:30 112 28 103/64 (77) 100 07/30/20 07:00 115 27 118/65 (82) 99 07/30/20 06:15 119 25 108/78 (88) 100 07/30/20 06:00 116 28 118/73 (88) 99 07/30/20 05:45 116 30 120/68 (85) 100 07/30/20 05:30 117 30 110/53 (72) 97 07/30/20 05:15 116 30 116/58 (77) 99 07/30/20 05:00 116 24 112/74 (87) 99 07/30/20 05:00 26 116/68 Mechanical Ventilator 60 07/30/20 05:00 26 116/58 Mechanical Ventilator 60 07/30/20 04:45 116 31 105/60 (75) 99 07/30/20 04:30 115 26 98/54 (69) 100 07/30/20 04:15 116 25 104/62 (76) 100 07/30/20 04:00 60 07/30/20 04:00 115 07/30/20 04:00 27 104/62 Mechanical Ventilator 60 07/30/20 04:00 27 104/62 Mechanical Ventilator 60 07/30/20 04:00 Mechanical Ventilator Mechanical Ventilator 07/30/20 04:00 97.8 115 28 122/62 (82) 99 07/30/20 03:45 115 30 116/63 (80) 100 07/30/20 03:30 116 31 106/60 (75) 100 07/30/20 03:15 116 30 55 07/30/20 03:15 114 48 105/70 (82) 100 07/30/20 03:00 116 41 108/69 (82) 99 07/30/20 03:00 32 105/70 Mechanical Ventilator 60 07/30/20 03:00 32 105/70 Mechanical Ventilator 60 07/30/20 02:45 116 38 106/70 (82) 99 07/30/20 02:30 115 43 113/64 (80) 99 07/30/20 02:15 115 36 119/60 (79) 99 07/30/20 02:00 43 119/60 Mechanical Ventilator 60 07/30/20 02:00 43 119/60 Mechanical Ventilator 60 07/30/20 02:00 113 35 117/68 (84) 100 07/30/20 01:45 112 21 107/66 (80) 100 07/30/20 01:30 111 31 118/74 (89) 100 07/30/20 01:15 96.5 112 20 113/73 (86) 100 07/30/20 01:00 112 48 114/76 (89) 100 07/30/20 01:00 25 113/73 Mechanical Ventilator 60 07/30/20 01:00 25 113/73 Mechanical Ventilator 60 07/30/20 00:45 113 23 110/78 (89) 100 07/30/20 00:37 26 126/79 Mechanical Ventilator 60 07/30/20 00:30 114 39 126/79 (95) 100 07/30/20 00:15 114 31 125/77 (93) 100 07/30/20 00:00 96.7 116 40 119/92 (101) 100 07/30/20 00:00 116 07/30/20 00:00 60 07/30/20 00:00 39 125/77 Mechanical Ventilator 60 07/30/20 00:00 39 125/77 Mechanical Ventilator 60 07/30/20 00:00 Mechanical Ventilator Mechanical Ventilator 07/29/20 23:45 117 55 110/70 (83) 100 07/29/20 23:30 115 63 129/86 (100) 99 07/29/20 23:15 115 37 120/84 (96) 99 07/29/20 23:15 117 16 60 07/29/20 23:00 47 120/84 Mechanical Ventilator 60 07/29/20 23:00 47 120/84 Mechanical Ventilator 60 07/29/20 23:00 116 26 92/78 (83) 100 07/29/20 22:45 116 23 100/73 (82) 100 07/29/20 22:35 117 28 114/69 (84) 100 07/29/20 22:00 97.7 113 21 96/54 (68) 100 07/29/20 22:00 26 114/69 Mechanical Ventilator 60 07/29/20 22:00 26 114/69 Mechanical Ventilator 60 07/29/20 21:45 114 15 101/48 (65) 100 07/29/20 21:45 19 97/56 Mechanical Ventilator 65 07/29/20 21:30 117 32 99/60 (73) 100 07/29/20 21:15 116 30 97/56 (70) 100 07/29/20 21:00 119 31 104/60 (75) 100 07/29/20 21:00 19 97/56 Mechanical Ventilator 65 07/29/20 21:00 19 97/56 Mechanical Ventilator 65 07/29/20 20:55 99.1 07/29/20 20:45 119 29 116/62 (80) 100 07/29/20 20:30 120 26 127/73 (91) 100 07/29/20 20:15 123 23 120/73 (89) 100 07/29/20 20:00 122 07/29/20 20:00 Mechanical Ventilator Mechanical Ventilator 07/29/20 20:00 26 100/60 Mechanical Ventilator 65 07/29/20 20:00 26 100/60 Mechanical Ventilator 65 07/29/20 20:00 99.3 124 26 120/77 (91) 100 07/29/20 20:00 65 07/29/20 19:45 126 48 123/84 (97) 81 07/29/20 19:30 123 44 125/77 (93) 84 07/29/20 19:20 125 28 65 07/29/20 19:15 120 41 128/70 (89) 84 07/29/20 19:00 41 125/92 Mechanical Ventilator 45 3/8/21 19:00 41 125/92 Mechanical Ventilator 45 07/29/20 19:00 124 48 125/92 (103) 91 07/29/20 18:30 115 31 121/69 (86) 87 07/29/20 18:00 36 127/70 Mechanical Ventilator 45 07/29/20 18:00 36 127/70 Mechanical Ventilator 45 07/29/20 18:00 117 35 113/80 (91) 92 07/29/20 17:30 116 33 114/75 (88) 94 07/29/20 17:00 116 33 119/75 (90) 85 07/29/20 17:00 34 109/71 Mechanical Ventilator 45 07/29/20 17:00 34 109/71 Mechanical Ventilator 45 07/29/20 16:30 119 54 107/72 (84) 88 07/29/20 16:00 Mechanical Ventilator Mechanical Ventilator Mechanical Ventilator 07/29/20 16:00 99.5 120 31 84/66 (72) 97 07/29/20 16:00 49 115/73 Mechanical Ventilator 45 07/29/20 16:00 49 115/73 Mechanical Ventilator 45 07/29/20 16:00 118 07/29/20 16:00 45 07/29/20 15:30 116 43 110/69 (83) 87 07/29/20 15:00 116 49 117/77 (90) 89 07/29/20 15:00 42 126/75 Mechanical Ventilator 45 07/29/20 15:00 42 126/75 Mechanical Ventilator 45 07/29/20 14:35 116 30 45 07/29/20 14:30 116 50 112/73 (86) 89 07/29/20 14:16 36 115/95 Mechanical Ventilator 45 07/29/20 14:16 51 112/73 Mechanical Ventilator 45 07/29/20 14:00 56 115/95 Mechanical Ventilator 45 07/29/20 14:00 114 55 120/80 (93) 91 07/29/20 13:30 110 56 117/73 (88) 91 07/29/20 13:23 113 30 45 07/29/20 13:00 113 56 110/69 (83) 90 07/29/20 13:00 56 105/78 Mechanical Ventilator 45 07/29/20 12:45 58 110/69 Mechanical Ventilator 45 07/29/20 12:30 113 57 97/71 (80) 90 07/29/20 12:30 43 113/72 Mechanical Ventilator 45 07/29/20 12:15 57 97/71 Mechanical Ventilator 45 07/29/20 12:00 111 07/29/20 12:00 45 07/29/20 12:00 55 116/61 Mechanical Ventilator 45 07/29/20 12:00 Mechanical Ventilator Mechanical Ventilator Mechanical Ventilator 07/29/20 12:00 98.3 113 58 111/72 (85) 87 07/29/20 11:45 46 111/72 Mechanical Ventilator 45 07/29/20 11:30 30 116/69 Mechanical Ventilator 45 07/29/20 11:30 111 58 100/66 (77) 89 07/29/20 11:15 58 100/66 Mechanical Ventilator 45 07/29/20 11:12 105 23 45 07/29/20 11:00 56 111/60 Mechanical Ventilator 45 07/29/20 11:00 107 26 110/79 (89) 94 Intake and Output 07/29/20 07/30/20 19:00 07:00 Intake Total 1512.10 ml 1035 ml Output Total 520 ml 565 ml Balance 992.10 ml 470 ml Free Water 100 ml 200 ml IV Total 917.10 ml 835 ml Tube Feeding 495 ml 0 ml Output Urine Total 520 ml 565 ml # Bowel Movements 1 2 General Appearance: no acute distress HEENT: normocephalic, status post trach Respiratory: chest wall non-tender Cardiovascular: normal peripheral pulses Abdomen: normal bowel sounds, other - s/p PEG Laboratory Tests 07/30/20 03:30: White Blood Count 13.0H, Red Blood Count 3.00L, Hemoglobin 8.5L, Hematocrit 28.4L, Mean Corpuscular Volume 95, Mean Corpuscular Hemoglobin 28.2, Mean Corpuscular Hemoglobin Concent 29.8L, Red Cell Distribution Width 17.8H, Platelet Count 266, Mean Platelet Volume 7.5, Neutrophils (%) (Auto) 68.2, Lymphocytes (%) (Auto) 19.7L, Monocytes (%) (Auto) 6.7, Eosinophils (%) (Auto) 4.8H, Basophils (%) (Auto) 0.6, Prothrombin Time 12.5H, Prothromb Time International Ratio 1.1, Activated Partial Thromboplast Time 33, Sodium Level 144, Potassium Level 4.8, Chloride Level 103, Carbon Dioxide Level 40H, Anion Gap -1L, Blood Urea Nitrogen 4L, Creatinine 0.5#L, Estimat Glomerular Filtration Rate > 60, Glucose Level 121H, Calcium Level 8.1L, Total Bilirubin 0.4, Aspartate Amino Transf (AST/SGOT) 21, Alanine Aminotransferase (ALT/SGPT) 18, Alkaline Phosphatase 72, Total Protein 6.5, Albumin 2.2L, Globulin 4.3, Albumin/Globulin Ratio 0.5L Current Medications Medications (Trade) Dose Ordered Sig/Zelda Route PRN Reason Start Time Stop Time Status Last Admin Dose Admin Acetaminophen (Tylenol) 650 mg Q4H PRN NG Temp >100.5 07/27/20 03:45 08/26/20 03:44 07/29/20 20:24 Calcitonin [place] (Miacalcin) 1 sprays DAILY NASAL 07/22/20 14:00 10/20/20 13:59 07/30/20 08:44 Chlorhexidine Gluconate (Inna-Hex 2%) 1 applic DAILY@2000 TOPIC 07/20/20 20:00 10/18/20 19:59 07/29/20 19:55 Dextrose (Dextrose 50%) 25 ml Q30M PRN IV Hypoglycemia 06/05/20 10:45 09/03/20 10:44 Dextrose (Dextrose 50%) 50 ml Q30M PRN IV Hypoglycemia 06/05/20 10:45 09/03/20 10:44 Dextrose/Sodium Chloride 1,000 ml @ 50 mls/hr Q20H IV 07/25/20 11:15 08/24/20 11:14 07/29/20 14:54 Docusate Sodium (Colace) 100 mg TWICE A DAY NG 07/26/20 18:00 08/25/20 17:59 07/30/20 08:41 Enoxaparin Sodium (Lovenox) 110 mg EVERY 12 HOURS SUBQ 07/17/20 21:00 10/15/20 20:59 07/30/20 08:44 Fentanyl Citrate 250 ml @ 1 mls/hr Q24H IV 07/29/20 17:00 07/31/20 16:59 07/29/20 21:45 Guaifenesin/ Codeine Phosphate (Robitussin with codeine) 5 ml Q6H PRN NG For Cough 07/14/20 14:15 08/13/20 14:14 07/18/20 21:44 Lansoprazole (Prevacid) 30 mg DAILY GT 07/18/20 09:00 08/09/20 08:59 07/30/20 08:42 Meropenem 1 gm/ Sodium Chloride 55 ml @ 110 mls/hr Q8H IVPB 07/22/20 12:00 08/02/20 11:59 07/30/20 03:27 Midazolam HCl 200 ml @ 0 mls/hr Q24H PRN IV SEDATION 07/29/20 14:15 08/05/20 14:14 07/30/20 00:37 Midodrine (Pro-Amatine) 10 mg Q8HR GT 06/30/20 14:00 09/12/20 13:59 07/30/20 06:05 Polyethylene Glycol (Miralax) 17 gm BEDTIME ORAL 07/26/20 21:00 08/25/20 20:59 07/28/20 21:00 Quetiapine Fumarate (SEROqueL) 50 mg Q12HR GT 07/16/20 13:30 08/30/20 13:29 07/30/20 08:42 Assessment/Plan Assessment/Plan 1. COVID-19 pneumonia -Intubated 05/28/20 - on broad-spectrum antibiotics. -s/p solumedrol, Rocephin -Continue PEEP 6 ->7 ->5 - Peak airway pressures better - FiO2 100% -> 90 ->80->60 ->40 ->80 ->100 ->70 ->60 -> 50 ->45 ->40 ->50 ->40%; PEEP 7 ->5 - s/p PEG - Sputum Cx pseudo -> on meropenem per ID 2. Hyponatremia -Per primary MD 3. Elevated inflammatory markers - has high D dimer; On Lovenox -> Lovenox held given anemia 4. DVT of the right calf - once stable, consider IVC filter per heme vs oral DOAC - was on Lovenox but held given anemia 5. Decreased PEEP S/p trach Reported cuff leak per RN/RT Changed 07/22/20 however still has cuff leak On low dose Levophed; will attempt to wean off Will wean off IV sedation; started Seroquel s/p PEG Required R CT due to PTX 07/22/20 - CT removed (07/29) ->however, f/u CXR shows PTX with tracheal deviation. Dw surgery who will reinsert chest tube Hold weaning for now The care of this patient was discussed with my supervising physician Time spent for this encounter was approximately 31 minutes Vamshi Garcia Jul 30, 2020 10:59
--- NOTE | 2020-07-30 11:19 | Infectious Diseases Prog Note ---
Assessment/Plan Assessment/Plan antibiotics : meropenem A 1. covid 19 pneumonia s/p remdesivir s/p solumedrol 2. respiratory failure s/p tracheostomy 3. pseudomonas pneumonia 4. leucocytosis increased 5. SBO 6, pneumothorax s/p CT placement P 1. continue meropenem 1 more day 2. will follow up cultures Subjective ROS Limited/Unobtainable: Yes Allergies: Coded Allergies: No Known Allergies (Unverified , 05/28/20) Objective Last 24 Hour Vital Signs Date Time Temp Pulse Resp B/P (MAP) Pulse Ox O2 Delivery O2 Flow Rate FiO2 07/30/20 10:00 115 28 104/56 (72) 100 07/30/20 09:30 115 30 103/58 (73) 100 07/30/20 09:00 115 30 115/66 (82) 100 07/30/20 08:30 114 36 114/63 (80) 99 07/30/20 08:00 98.4 40 100/67 (78) 100 07/30/20 08:00 114 07/30/20 08:00 60 07/30/20 07:30 112 28 103/64 (77) 100 07/30/20 07:00 115 27 118/65 (82) 99 07/30/20 06:15 119 25 108/78 (88) 100 07/30/20 06:00 116 28 118/73 (88) 99 07/30/20 05:45 116 30 120/68 (85) 100 07/30/20 05:30 117 30 110/53 (72) 97 07/30/20 05:15 116 30 116/58 (77) 99 07/30/20 05:00 116 24 112/74 (87) 99 07/30/20 05:00 26 116/68 Mechanical Ventilator 60 07/30/20 05:00 26 116/58 Mechanical Ventilator 60 07/30/20 04:45 116 31 105/60 (75) 99 07/30/20 04:30 115 26 98/54 (69) 100 07/30/20 04:15 116 25 104/62 (76) 100 07/30/20 04:00 60 07/30/20 04:00 115 07/30/20 04:00 27 104/62 Mechanical Ventilator 60 07/30/20 04:00 27 104/62 Mechanical Ventilator 60 07/30/20 04:00 Mechanical Ventilator Mechanical Ventilator 07/30/20 04:00 97.8 115 28 122/62 (82) 99 07/30/20 03:45 115 30 116/63 (80) 100 07/30/20 03:30 116 31 106/60 (75) 100 07/30/20 03:15 116 30 55 07/30/20 03:15 114 48 105/70 (82) 100 07/30/20 03:00 116 41 108/69 (82) 99 07/30/20 03:00 32 105/70 Mechanical Ventilator 60 07/30/20 03:00 32 105/70 Mechanical Ventilator 60 07/30/20 02:45 116 38 106/70 (82) 99 07/30/20 02:30 115 43 113/64 (80) 99 07/30/20 02:15 115 36 119/60 (79) 99 07/30/20 02:00 43 119/60 Mechanical Ventilator 60 07/30/20 02:00 43 119/60 Mechanical Ventilator 60 07/30/20 02:00 113 35 117/68 (84) 100 07/30/20 01:45 112 21 107/66 (80) 100 07/30/20 01:30 111 31 118/74 (89) 100 07/30/20 01:15 96.5 112 20 113/73 (86) 100 07/30/20 01:00 112 48 114/76 (89) 100 07/30/20 01:00 25 113/73 Mechanical Ventilator 60 07/30/20 01:00 25 113/73 Mechanical Ventilator 60 07/30/20 00:45 113 23 110/78 (89) 100 07/30/20 00:37 26 126/79 Mechanical Ventilator 60 07/30/20 00:30 114 39 126/79 (95) 100 07/30/20 00:15 114 31 125/77 (93) 100 07/30/20 00:00 96.7 116 40 119/92 (101) 100 07/30/20 00:00 116 07/30/20 00:00 60 07/30/20 00:00 39 125/77 Mechanical Ventilator 60 07/30/20 00:00 39 125/77 Mechanical Ventilator 60 07/30/20 00:00 Mechanical Ventilator Mechanical Ventilator 07/29/20 23:45 117 55 110/70 (83) 100 07/29/20 23:30 115 63 129/86 (100) 99 07/29/20 23:15 115 37 120/84 (96) 99 07/29/20 23:15 117 16 60 07/29/20 23:00 47 120/84 Mechanical Ventilator 60 07/29/20 23:00 47 120/84 Mechanical Ventilator 60 07/29/20 23:00 116 26 92/78 (83) 100 07/29/20 22:45 116 23 100/73 (82) 100 07/29/20 22:35 117 28 114/69 (84) 100 07/29/20 22:00 97.7 113 21 96/54 (68) 100 07/29/20 22:00 26 114/69 Mechanical Ventilator 60 07/29/20 22:00 26 114/69 Mechanical Ventilator 60 07/29/20 21:45 114 15 101/48 (65) 100 07/29/20 21:45 19 97/56 Mechanical Ventilator 65 07/29/20 21:30 117 32 99/60 (73) 100 07/29/20 21:15 116 30 97/56 (70) 100 07/29/20 21:00 119 31 104/60 (75) 100 07/29/20 21:00 19 97/56 Mechanical Ventilator 65 07/29/20 21:00 19 97/56 Mechanical Ventilator 65 07/29/20 20:55 99.1 07/29/20 20:45 119 29 116/62 (80) 100 07/29/20 20:30 120 26 127/73 (91) 100 07/29/20 20:15 123 23 120/73 (89) 100 07/29/20 20:00 122 07/29/20 20:00 Mechanical Ventilator Mechanical Ventilator 07/29/20 20:00 26 100/60 Mechanical Ventilator 65 07/29/20 20:00 26 100/60 Mechanical Ventilator 65 07/29/20 20:00 99.3 124 26 120/77 (91) 100 07/29/20 20:00 65 07/29/20 19:45 126 48 123/84 (97) 81 07/29/20 19:30 123 44 125/77 (93) 84 07/29/20 19:20 125 28 65 07/29/20 19:15 120 41 128/70 (89) 84 07/29/20 19:00 41 125/92 Mechanical Ventilator 45 07/29/20 19:00 41 125/92 Mechanical Ventilator 45 07/29/20 19:00 124 48 125/92 (103) 91 07/29/20 18:30 115 31 121/69 (86) 87 07/29/20 18:00 36 127/70 Mechanical Ventilator 45 07/29/20 18:00 36 127/70 Mechanical Ventilator 45 07/29/20 18:00 117 35 113/80 (91) 92 07/29/20 17:30 116 33 114/75 (88) 94 07/29/20 17:00 116 33 119/75 (90) 85 07/29/20 17:00 34 109/71 Mechanical Ventilator 45 07/29/20 17:00 34 109/71 Mechanical Ventilator 45 07/29/20 16:30 119 54 107/72 (84) 88 07/29/20 16:00 Mechanical Ventilator Mechanical Ventilator Mechanical Ventilator 07/29/20 16:00 99.5 120 31 84/66 (72) 97 07/29/20 16:00 49 115/73 Mechanical Ventilator 45 07/29/20 16:00 49 115/73 Mechanical Ventilator 45 07/29/20 16:00 118 07/29/20 16:00 45 07/29/20 15:30 116 43 110/69 (83) 87 07/29/20 15:00 116 49 117/77 (90) 89 07/29/20 15:00 42 126/75 Mechanical Ventilator 45 07/29/20 15:00 42 126/75 Mechanical Ventilator 45 07/29/20 14:35 116 30 45 07/29/20 14:30 116 50 112/73 (86) 89 07/29/20 14:16 36 115/95 Mechanical Ventilator 45 07/29/20 14:16 51 112/73 Mechanical Ventilator 45 07/29/20 14:00 56 115/95 Mechanical Ventilator 45 07/29/20 14:00 114 55 120/80 (93) 91 07/29/20 13:30 110 56 117/73 (88) 91 07/29/20 13:23 113 30 45 07/29/20 13:00 113 56 110/69 (83) 90 07/29/20 13:00 56 105/78 Mechanical Ventilator 45 07/29/20 12:45 58 110/69 Mechanical Ventilator 45 07/29/20 12:30 113 57 97/71 (80) 90 07/29/20 12:30 43 113/72 Mechanical Ventilator 45 07/29/20 12:15 57 97/71 Mechanical Ventilator 45 07/29/20 12:00 111 07/29/20 12:00 45 07/29/20 12:00 55 116/61 Mechanical Ventilator 45 07/29/20 12:00 Mechanical Ventilator Mechanical Ventilator Mechanical Ventilator 07/29/20 12:00 98.3 113 58 111/72 (85) 87 07/29/20 11:45 46 111/72 Mechanical Ventilator 45 07/29/20 11:30 30 116/69 Mechanical Ventilator 45 07/29/20 11:30 111 58 100/66 (77) 89 07/29/20 11:15 58 100/66 Mechanical Ventilator 45 07/29/20 11:12 105 23 45 Height (Feet): 5 Height (Inches): 5.00 Weight (Pounds): 223 HEENT: status post trach Extremities: no edema Laboratory Tests Test 07/30/20 03:30 White Blood Count 13.0 K/UL (4.8-10.8) H Red Blood Count 3.00 M/UL (4.20-5.40) L Hemoglobin 8.5 G/DL (12.0-16.0) L Hematocrit 28.4 % (37.0-47.0) L Mean Corpuscular Volume 95 FL (80-99) Mean Corpuscular Hemoglobin 28.2 PG (27.0-31.0) Mean Corpuscular Hemoglobin Concent 29.8 G/DL (32.0-36.0) L Red Cell Distribution Width 17.8 % (11.6-14.8) H Platelet Count 266 K/UL (150-450) Mean Platelet Volume 7.5 FL (6.5-10.1) Neutrophils (%) (Auto) 68.2 % (45.0-75.0) Lymphocytes (%) (Auto) 19.7 % (20.0-45.0) L Monocytes (%) (Auto) 6.7 % (1.0-10.0) Eosinophils (%) (Auto) 4.8 % (0.0-3.0) H Basophils (%) (Auto) 0.6 % (0.0-2.0) Prothrombin Time 12.5 SEC (9.30-11.50) H Prothromb Time International Ratio 1.1 (0.9-1.1) Activated Partial Thromboplast Time 33 SEC (23-33) Sodium Level 144 MMOL/L (136-145) Potassium Level 4.8 MMOL/L (3.5-5.1) Chloride Level 103 MMOL/L (98-107) Carbon Dioxide Level 40 MMOL/L (21-32) H Anion Gap -1 mmol/L (5-15) L Blood Urea Nitrogen 4 mg/dL (7-18) L Creatinine 0.5 MG/DL (0.55-1.30) #L Estimat Glomerular Filtration Rate > 60 mL/min (>60) Glucose Level 121 MG/DL (74-106) H Calcium Level 8.1 MG/DL (8.5-10.1) L Total Bilirubin 0.4 MG/DL (0.2-1.0) Aspartate Amino Transf (AST/SGOT) 21 U/L (15-37) Alanine Aminotransferase (ALT/SGPT) 18 U/L (12-78) Alkaline Phosphatase 72 U/L (46-116) Total Protein 6.5 G/DL (6.4-8.2) Albumin 2.2 G/DL (3.4-5.0) L Globulin 4.3 g/dL Albumin/Globulin Ratio 0.5 (1.0-2.7) L Current Medications Medications (Trade) Dose Ordered Sig/Zelda Route PRN Reason Start Time Stop Time Status Last Admin Dose Admin Acetaminophen (Tylenol) 650 mg Q4H PRN NG Temp >100.5 07/27/20 03:45 08/26/20 03:44 07/29/20 20:24 Calcitonin [place] (Miacalcin) 1 sprays DAILY NASAL 07/22/20 14:00 10/20/20 13:59 07/30/20 08:44 Chlorhexidine Gluconate (Inna-Hex 2%) 1 applic DAILY@1999 TOPIC 07/20/20 20:00 10/18/20 19:59 07/29/20 19:55 Dextrose (Dextrose 50%) 25 ml Q30M PRN IV Hypoglycemia 06/05/20 10:45 09/03/20 10:44 Dextrose (Dextrose 50%) 50 ml Q30M PRN IV Hypoglycemia 06/05/20 10:45 09/03/20 10:44 Dextrose/Sodium Chloride 1,000 ml @ 50 mls/hr Q20H IV 07/25/20 11:15 08/24/20 11:14 07/29/20 14:54 Docusate Sodium (Colace) 100 mg TWICE A DAY NG 07/26/20 18:00 08/25/20 17:59 07/30/20 08:41 Enoxaparin Sodium (Lovenox) 110 mg EVERY 12 HOURS SUBQ 07/17/20 21:00 10/15/20 20:59 07/30/20 08:44 Fentanyl Citrate 250 ml @ 1 mls/hr Q24H IV 07/29/20 17:00 07/31/20 16:59 07/29/20 21:45 Guaifenesin/ Codeine Phosphate (Robitussin with codeine) 5 ml Q6H PRN NG For Cough 07/14/20 14:15 08/13/20 14:14 07/18/20 21:44 Lansoprazole (Prevacid) 30 mg DAILY GT 07/18/20 09:00 08/09/20 08:59 07/30/20 08:42 Meropenem 1 gm/ Sodium Chloride 55 ml @ 110 mls/hr Q8H IVPB 07/22/20 12:00 08/02/20 11:59 07/30/20 03:27 Midazolam HCl 200 ml @ 0 mls/hr Q24H PRN IV SEDATION 07/29/20 14:15 08/05/20 14:14 07/30/20 00:37 Midodrine (Pro-Amatine) 10 mg Q8HR GT 06/30/20 14:00 09/12/20 13:59 07/30/20 06:05 Polyethylene Glycol (Miralax) 17 gm BEDTIME ORAL 07/26/20 21:00 08/25/20 20:59 07/28/20 21:00 Quetiapine Fumarate (SEROqueL) 50 mg Q12HR GT 07/16/20 13:30 08/30/20 13:29 07/30/20 08:42 Fili Mcelroy MD Jul 30, 2020 11:19
[2020-07-30] MEDS: D5NS 1,000 ML IV SCH (11:31)
--- NOTE | 2020-07-30 11:44 | Cardiac Electrophysiology PN ---
Assessment/Plan Assessment/Plan 1. Respiratory failure due to COVID-19 pneumonia. On tracheostomy on 450 % Fio2. Trach exchanged 07/22/[address] Devine Echo EF 60% 2. S/P Code x2 with hypotension and sammy arrest on 07/22/20 likely due to Pneumothorax. HR stable 3. Right Pneumothorax, S/P chest tube placement. Removed 07/29/20 4. Hypotension, on midodrine 10 mg 3 times daily and off pressors 5. Dysphagia. S/P PEG 07/24/20 6. Right lower extremity DVT. Follow up by Hematology. 7. Severe anemia, S/P PRBC DW RN and Dr Tyler DC to LTAC pending Subjective Subjective In ICU on the Vent on 55 % Fio2 and PEEP 5 in SR. Off pressors Coded twice for hypotension and bradycardia while on the Vent about 20 minutes after tracheostomy was changed 07/22/20 Found to have Right Pneumothorax and underwent Right chest tube placement by Dr. Devine S/P PRBC. S/P PEG 07/24/20. Chest tube removed 07/29/20 DC to LTAC pending Objective Last 24 Hour Vital Signs Date Time Temp Pulse Resp B/P (MAP) Pulse Ox O2 Delivery O2 Flow Rate FiO2 07/30/20 11:00 116 32 94/53 (67) 100 07/30/20 11:00 32 94/53 Mechanical Ventilator 45 07/30/20 11:00 32 94/53 Mechanical Ventilator 45 07/30/20 11:00 117 28 98/47 (64) 96 07/30/20 10:30 117 30 96/56 (69) 100 07/30/20 10:00 28 104/56 Mechanical Ventilator 55 07/30/20 10:00 28 104/56 Mechanical Ventilator 55 07/30/20 10:00 115 28 104/56 (72) 100 07/30/20 09:30 115 30 103/58 (73) 100 07/30/20 09:00 115 30 115/66 (82) 100 07/30/20 09:00 36 115/56 Mechanical Ventilator 55 07/30/20 09:00 36 115/66 Mechanical Ventilator 55 07/30/20 08:30 114 36 114/63 (80) 99 07/30/20 08:00 98.4 40 100/67 (78) 100 07/30/20 08:00 114 3/9/21 08:00 40 100/67 Mechanical Ventilator 55 07/30/20 08:00 40 100/67 Mechanical Ventilator 55 07/30/20 08:00 60 07/30/20 07:30 112 28 103/64 (77) 100 07/30/20 07:00 28 103/64 Mechanical Ventilator 60 07/30/20 07:00 28 103/64 Mechanical Ventilator 60 07/30/20 07:00 115 27 118/65 (82) 99 07/30/20 06:15 119 25 108/78 (88) 100 07/30/20 06:00 116 28 118/73 (88) 99 07/30/20 05:45 116 30 120/68 (85) 100 07/30/20 05:30 117 30 110/53 (72) 97 07/30/20 05:15 116 30 116/58 (77) 99 07/30/20 05:00 116 24 112/74 (87) 99 07/30/20 05:00 26 116/68 Mechanical Ventilator 60 07/30/20 05:00 26 116/58 Mechanical Ventilator 60 07/30/20 04:45 116 31 105/60 (75) 99 07/30/20 04:30 115 26 98/54 (69) 100 07/30/20 04:15 116 25 104/62 (76) 100 07/30/20 04:00 60 07/30/20 04:00 115 07/30/20 04:00 27 104/62 Mechanical Ventilator 60 07/30/20 04:00 27 104/62 Mechanical Ventilator 60 07/30/20 04:00 Mechanical Ventilator Mechanical Ventilator 07/30/20 04:00 97.8 115 28 122/62 (82) 99 07/30/20 03:45 115 30 116/63 (80) 100 07/30/20 03:30 116 31 106/60 (75) 100 07/30/20 03:15 116 30 55 07/30/20 03:15 114 48 105/70 (82) 100 07/30/20 03:00 116 41 108/69 (82) 99 07/30/20 03:00 32 105/70 Mechanical Ventilator 60 07/30/20 03:00 32 105/70 Mechanical Ventilator 60 07/30/20 02:45 116 38 106/70 (82) 99 07/30/20 02:30 115 43 113/64 (80) 99 07/30/20 02:15 115 36 119/60 (79) 99 07/30/20 02:00 43 119/60 Mechanical Ventilator 60 07/30/20 02:00 43 119/60 Mechanical Ventilator 60 07/30/20 02:00 113 35 117/68 (84) 100 07/30/20 01:45 112 21 107/66 (80) 100 07/30/20 01:30 111 31 118/74 (89) 100 07/30/20 01:15 96.5 112 20 113/73 (86) 100 07/30/20 01:00 112 48 114/76 (89) 100 07/30/20 01:00 25 113/73 Mechanical Ventilator 60 07/30/20 01:00 25 113/73 Mechanical Ventilator 60 07/30/20 00:45 113 23 110/78 (89) 100 07/30/20 00:37 26 126/79 Mechanical Ventilator 60 07/30/20 00:30 114 39 126/79 (95) 100 07/30/20 00:15 114 31 125/77 (93) 100 07/30/20 00:00 96.7 116 40 119/92 (101) 100 07/30/20 00:00 116 07/30/20 00:00 60 07/30/20 00:00 39 125/77 Mechanical Ventilator 60 07/30/20 00:00 39 125/77 Mechanical Ventilator 60 07/30/20 00:00 Mechanical Ventilator Mechanical Ventilator 07/29/20 23:45 117 55 110/70 (83) 100 07/29/20 23:30 115 63 129/86 (100) 99 07/29/20 23:15 115 37 120/84 (96) 99 07/29/20 23:15 117 16 60 07/29/20 23:00 47 120/84 Mechanical Ventilator 60 07/29/20 23:00 47 120/84 Mechanical Ventilator 60 07/29/20 23:00 116 26 92/78 (83) 100 07/29/20 22:45 116 23 100/73 (82) 100 07/29/20 22:35 117 28 114/69 (84) 100 07/29/20 22:00 97.7 113 21 96/54 (68) 100 07/29/20 22:00 26 114/69 Mechanical Ventilator 60 07/29/20 22:00 26 114/69 Mechanical Ventilator 60 07/29/20 21:45 114 15 101/48 (65) 100 07/29/20 21:45 19 97/56 Mechanical Ventilator 65 07/29/20 21:30 117 32 99/60 (73) 100 07/29/20 21:15 116 30 97/56 (70) 100 07/29/20 21:00 119 31 104/60 (75) 100 07/29/20 21:00 19 97/56 Mechanical Ventilator 65 07/29/20 21:00 19 97/56 Mechanical Ventilator 65 07/29/20 20:55 99.1 07/29/20 20:45 119 29 116/62 (80) 100 07/29/20 20:30 120 26 127/73 (91) 100 07/29/20 20:15 123 23 120/73 (89) 100 07/29/20 20:00 122 07/29/20 20:00 Mechanical Ventilator Mechanical Ventilator 07/29/20 20:00 26 100/60 Mechanical Ventilator 65 07/29/20 20:00 26 100/60 Mechanical Ventilator 65 07/29/20 20:00 99.3 124 26 120/77 (91) 100 07/29/20 20:00 65 07/29/20 19:45 126 48 123/84 (97) 81 07/29/20 19:30 123 44 125/77 (93) 84 07/29/20 19:20 125 28 65 07/29/20 19:15 120 41 128/70 (89) 84 07/29/20 19:00 41 125/92 Mechanical Ventilator 45 07/29/20 19:00 41 125/92 Mechanical Ventilator 45 07/29/20 19:00 124 48 125/92 (103) 91 07/29/20 18:30 115 31 121/69 (86) 87 07/29/20 18:00 36 127/70 Mechanical Ventilator 45 07/29/20 18:00 36 127/70 Mechanical Ventilator 45 07/29/20 18:00 117 35 113/80 (91) 92 07/29/20 17:30 116 33 114/75 (88) 94 07/29/20 17:00 116 33 119/75 (90) 85 07/29/20 17:00 34 109/71 Mechanical Ventilator 45 07/29/20 17:00 34 109/71 Mechanical Ventilator 45 07/29/20 16:30 119 54 107/72 (84) 88 07/29/20 16:00 Mechanical Ventilator Mechanical Ventilator Mechanical Ventilator 07/29/20 16:00 99.5 120 31 84/66 (72) 97 07/29/20 16:00 49 115/73 Mechanical Ventilator 45 07/29/20 16:00 49 115/73 Mechanical Ventilator 45 07/29/20 16:00 118 07/29/20 16:00 45 07/29/20 15:30 116 43 110/69 (83) 87 07/29/20 15:00 116 49 117/77 (90) 89 07/29/20 15:00 42 126/75 Mechanical Ventilator 45 07/29/20 15:00 42 126/75 Mechanical Ventilator 45 07/29/20 14:35 116 30 45 07/29/20 14:30 116 50 112/73 (86) 89 07/29/20 14:16 36 115/95 Mechanical Ventilator 45 07/29/20 14:16 51 112/73 Mechanical Ventilator 45 07/29/20 14:00 56 115/95 Mechanical Ventilator 45 07/29/20 14:00 114 55 120/80 (93) 91 07/29/20 13:30 110 56 117/73 (88) 91 07/29/20 13:23 113 30 45 07/29/20 13:00 113 56 110/69 (83) 90 07/29/20 13:00 56 105/78 Mechanical Ventilator 45 07/29/20 12:45 58 110/69 Mechanical Ventilator 45 07/29/20 12:30 113 57 97/71 (80) 90 07/29/20 12:30 43 113/72 Mechanical Ventilator 45 07/29/20 12:15 57 97/71 Mechanical Ventilator 45 07/29/20 12:00 111 07/29/20 12:00 45 07/29/20 12:00 55 116/61 Mechanical Ventilator 45 07/29/20 12:00 Mechanical Ventilator Mechanical Ventilator Mechanical Ventilator 07/29/20 12:00 98.3 113 58 111/72 (85) 87 07/29/20 11:45 46 111/72 Mechanical Ventilator 45 Intake and Output 07/29/20 07/30/20 19:00 07:00 Intake Total 1512.10 ml 1115 ml Output Total 520 ml 565 ml Balance 992.10 ml 550 ml Free Water 100 ml 200 ml IV Total 917.10 ml 915 ml Tube Feeding 495 ml 0 ml Output Urine Total 520 ml 565 ml # Bowel Movements 1 2 Laboratory Tests Test 07/30/20 03:30 White Blood Count 13.0 K/UL (4.8-10.8) H Red Blood Count 3.00 M/UL (4.20-5.40) L Hemoglobin 8.5 G/DL (12.0-16.0) L Hematocrit 28.4 % (37.0-47.0) L Mean Corpuscular Volume 95 FL (80-99) Mean Corpuscular Hemoglobin 28.2 PG (27.0-31.0) Mean Corpuscular Hemoglobin Concent 29.8 G/DL (32.0-36.0) L Red Cell Distribution Width 17.8 % (11.6-14.8) H Platelet Count 266 K/UL (150-450) Mean Platelet Volume 7.5 FL (6.5-10.1) Neutrophils (%) (Auto) 68.2 % (45.0-75.0) Lymphocytes (%) (Auto) 19.7 % (20.0-45.0) L Monocytes (%) (Auto) 6.7 % (1.0-10.0) Eosinophils (%) (Auto) 4.8 % (0.0-3.0) H Basophils (%) (Auto) 0.6 % (0.0-2.0) Prothrombin Time 12.5 SEC (9.30-11.50) H Prothromb Time International Ratio 1.1 (0.9-1.1) Activated Partial Thromboplast Time 33 SEC (23-33) Sodium Level 144 MMOL/L (136-145) Potassium Level 4.8 MMOL/L (3.5-5.1) Chloride Level 103 MMOL/L (98-107) Carbon Dioxide Level 40 MMOL/L (21-32) H Anion Gap -1 mmol/L (5-15) L Blood Urea Nitrogen 4 mg/dL (7-18) L Creatinine 0.5 MG/DL (0.55-1.30) #L Estimat Glomerular Filtration Rate > 60 mL/min (>60) Glucose Level 121 MG/DL (74-106) H Calcium Level 8.1 MG/DL (8.5-10.1) L Total Bilirubin 0.4 MG/DL (0.2-1.0) Aspartate Amino Transf (AST/SGOT) 21 U/L (15-37) Alanine Aminotransferase (ALT/SGPT) 18 U/L (12-78) Alkaline Phosphatase 72 U/L (46-116) Total Protein 6.5 G/DL (6.4-8.2) Albumin 2.2 G/DL (3.4-5.0) L Globulin 4.3 g/dL Albumin/Globulin Ratio 0.5 (1.0-2.7) L Objective HEAD AND NECK: Status post tracheostomy LUNGS: Coarse rhonchi. CARDIOVASCULAR: Regular S1 and S2 with no gallop. ABDOMEN: Soft.S/P PEG EXTREMITIES: 1+ pitting edema. Hill Burger MD Jul 30, 2020 11:44
--- NOTE | 2020-07-30 11:52 | NUR ---
0720: Received report from RAKEL Brenner. Pt currently trach to vent and sedated. Pt tachypnic and tachycardic. Pt with L UA PICC. Per report pt has emesis occurrence yesterday and tube feedings have been stopped ever since. Will follow closely. 0900: Respiratory had attempted to try pt on CPAP. Pt failed and is now FiO2 is being weaned. 0950: Spoke with MD Tae. Per MD restart tube feedings. 1100: Spoke with MD Elijah. Pt with pneumothorax plans for chest tube. Will wean sedation as tolerated. 1145: Chest tube placed by MD Sybil.
--- NOTE | 2020-07-30 11:58 | Operative Note - PDOC ---
Operative Note Operative Note Date of Operation/Procedure: Jul 30, 2020 Pre-op Diagnosis: covid + sepsis respiratory insufficiency Pneumothorax Procedure: right tube chest tube insertion Post-op Diagnosis: same as pre-op Surgeon: deborah Anesthesia: local Specimen: none Complications: none Condition: stable Fluids: none Estimated Blood Loss: none Drains: other Implant(s) used?: No Indications for Procedure 50-year-old female Covid positive prior tracheostomy prior right pneumothorax tube removed recurrent right pneumothorax new right chest tube in [place] ann mmended spoke with family consent obtained procedure performed at bedside in intensive care unit Description of Procedure Patient was made comfortable the bedside in the supine position. The right chest wall and axilla prepped draped in same surgical fashion. Given pneumothorax no significant fluid recurrent plan was for initially beginning with a Thora vent and if successful continue with Thora vent otherwise will place large bore chest tube. Entered landmarks identified. Small skin incision made after local anesthetic infiltrated. A Thora vent was slowly inserted using the trocar until at the rib margin intercostal space entered and entry into the pleural cavity manually palpated with insertion of the trocar. Trocar removed and catheter inserted into the pleural cavity. Pneumothorax evacuated with 10 cc of serous fluid as well. Chest x-ray identified reexpansion of the right lung with small residual pneumothorax. Significantly improved. Will monitor clinically. if persistent apical pneumo may require second chest tube or larger. A.m. chest x-ray ordered. Thank you patient procedure well Az Devine Jul 30, 2020 11:58
--- NOTE | 2020-07-30 11:58 | Surgery Progress Note ---
Surgery Progress Note Subjective Procedure Performed right tube chest tube insertion Additional Comments tube removed yesterday as it was not functioning properly clog stable overnight but am cxr with large right ptx reformed discussed with team and family new right chest tube placement today Objective Last 24 Hour Vital Signs Date Time Temp Pulse Resp B/P (MAP) Pulse Ox O2 Delivery O2 Flow Rate FiO2 07/30/20 11:00 116 32 94/53 (67) 100 07/30/20 11:00 32 94/53 Mechanical Ventilator 45 07/30/20 11:00 32 94/53 Mechanical Ventilator 45 07/30/20 11:00 117 28 98/47 (64) 96 07/30/20 10:30 117 30 96/56 (69) 100 07/30/20 10:00 28 104/56 Mechanical Ventilator 55 07/30/20 10:00 28 104/56 Mechanical Ventilator 55 07/30/20 10:00 115 28 104/56 (72) 100 07/30/20 09:30 115 30 103/58 (73) 100 07/30/20 09:00 115 30 115/66 (82) 100 07/30/20 09:00 36 115/56 Mechanical Ventilator 55 07/30/20 09:00 36 115/66 Mechanical Ventilator 55 07/30/20 08:30 114 36 114/63 (80) 99 07/30/20 08:00 98.4 40 100/67 (78) 100 07/30/20 08:00 114 07/30/20 08:00 40 100/67 Mechanical Ventilator 55 07/30/20 08:00 40 100/67 Mechanical Ventilator 55 07/30/20 08:00 60 07/30/20 07:30 112 28 103/64 (77) 100 07/30/20 07:00 28 103/64 Mechanical Ventilator 60 07/30/20 07:00 28 103/64 Mechanical Ventilator 60 07/30/20 07:00 115 27 118/65 (82) 99 07/30/20 06:15 119 25 108/78 (88) 100 07/30/20 06:00 116 28 118/73 (88) 99 07/30/20 05:45 116 30 120/68 (85) 100 07/30/20 05:30 117 30 110/53 (72) 97 07/30/20 05:15 116 30 116/58 (77) 99 07/30/20 05:00 116 24 112/74 (87) 99 07/30/20 05:00 26 116/68 Mechanical Ventilator 60 07/30/20 05:00 26 116/58 Mechanical Ventilator 60 07/30/20 04:45 116 31 105/60 (75) 99 07/30/20 04:30 115 26 98/54 (69) 100 07/30/20 04:15 116 25 104/62 (76) 100 07/30/20 04:00 60 07/30/20 04:00 115 07/30/20 04:00 27 104/62 Mechanical Ventilator 60 07/30/20 04:00 27 104/62 Mechanical Ventilator 60 07/30/20 04:00 Mechanical Ventilator Mechanical Ventilator 07/30/20 04:00 97.8 115 28 122/62 (82) 99 07/30/20 03:45 115 30 116/63 (80) 100 07/30/20 03:30 116 31 106/60 (75) 100 07/30/20 03:15 116 30 55 07/30/20 03:15 114 48 105/70 (82) 100 07/30/20 03:00 116 41 108/69 (82) 99 07/30/20 03:00 32 105/70 Mechanical Ventilator 60 07/30/20 03:00 32 105/70 Mechanical Ventilator 60 07/30/20 02:45 116 38 106/70 (82) 99 07/30/20 02:30 115 43 113/64 (80) 99 07/30/20 02:15 115 36 119/60 (79) 99 07/30/20 02:00 43 119/60 Mechanical Ventilator 60 07/30/20 02:00 43 119/60 Mechanical Ventilator 60 07/30/20 02:00 113 35 117/68 (84) 100 07/30/20 01:45 112 21 107/66 (80) 100 07/30/20 01:30 111 31 118/74 (89) 100 07/30/20 01:15 96.5 112 20 113/73 (86) 100 07/30/20 01:00 112 48 114/76 (89) 100 07/30/20 01:00 25 113/73 Mechanical Ventilator 60 07/30/20 01:00 25 113/73 Mechanical Ventilator 60 07/30/20 00:45 113 23 110/78 (89) 100 07/30/20 00:37 26 126/79 Mechanical Ventilator 60 07/30/20 00:30 114 39 126/79 (95) 100 07/30/20 00:15 114 31 125/77 (93) 100 07/30/20 00:00 96.7 116 40 119/92 (101) 100 07/30/20 00:00 116 07/30/20 00:00 60 07/30/20 00:00 39 125/77 Mechanical Ventilator 60 07/30/20 00:00 39 125/77 Mechanical Ventilator 60 07/30/20 00:00 Mechanical Ventilator Mechanical Ventilator 07/29/20 23:45 117 55 110/70 (83) 100 07/29/20 23:30 115 63 129/86 (100) 99 07/29/20 23:15 115 37 120/84 (96) 99 07/29/20 23:15 117 16 60 07/29/20 23:00 47 120/84 Mechanical Ventilator 60 07/29/20 23:00 47 120/84 Mechanical Ventilator 60 07/29/20 23:00 116 26 92/78 (83) 100 07/29/20 22:45 116 23 100/73 (82) 100 07/29/20 22:35 117 28 114/69 (84) 100 07/29/20 22:00 97.7 113 21 96/54 (68) 100 07/29/20 22:00 26 114/69 Mechanical Ventilator 60 07/29/20 22:00 26 114/69 Mechanical Ventilator 60 07/29/20 21:45 114 15 101/48 (65) 100 07/29/20 21:45 19 97/56 Mechanical Ventilator 65 07/29/20 21:30 117 32 99/60 (73) 100 07/29/20 21:15 116 30 97/56 (70) 100 07/29/20 21:00 119 31 104/60 (75) 100 07/29/20 21:00 19 97/56 Mechanical Ventilator 65 07/29/20 21:00 19 97/56 Mechanical Ventilator 65 07/29/20 20:55 99.1 07/29/20 20:45 119 29 116/62 (80) 100 07/29/20 20:30 120 26 127/73 (91) 100 07/29/20 20:15 123 23 120/73 (89) 100 07/29/20 20:00 122 3/8/21 20:00 Mechanical Ventilator Mechanical Ventilator 07/29/20 20:00 26 100/60 Mechanical Ventilator 65 07/29/20 20:00 26 100/60 Mechanical Ventilator 65 07/29/20 20:00 99.3 124 26 120/77 (91) 100 07/29/20 20:00 65 07/29/20 19:45 126 48 123/84 (97) 81 07/29/20 19:30 123 44 125/77 (93) 84 07/29/20 19:20 125 28 65 07/29/20 19:15 120 41 128/70 (89) 84 07/29/20 19:00 41 125/92 Mechanical Ventilator 45 07/29/20 19:00 41 125/92 Mechanical Ventilator 45 07/29/20 19:00 124 48 125/92 (103) 91 07/29/20 18:30 115 31 121/69 (86) 87 07/29/20 18:00 36 127/70 Mechanical Ventilator 45 07/29/20 18:00 36 127/70 Mechanical Ventilator 45 07/29/20 18:00 117 35 113/80 (91) 92 07/29/20 17:30 116 33 114/75 (88) 94 07/29/20 17:00 116 33 119/75 (90) 85 07/29/20 17:00 34 109/71 Mechanical Ventilator 45 07/29/20 17:00 34 109/71 Mechanical Ventilator 45 07/29/20 16:30 119 54 107/72 (84) 88 07/29/20 16:00 Mechanical Ventilator Mechanical Ventilator Mechanical Ventilator 07/29/20 16:00 99.5 120 31 84/66 (72) 97 07/29/20 16:00 49 115/73 Mechanical Ventilator 45 07/29/20 16:00 49 115/73 Mechanical Ventilator 45 07/29/20 16:00 118 07/29/20 16:00 45 07/29/20 15:30 116 43 110/69 (83) 87 07/29/20 15:00 116 49 117/77 (90) 89 07/29/20 15:00 42 126/75 Mechanical Ventilator 45 07/29/20 15:00 42 126/75 Mechanical Ventilator 45 07/29/20 14:35 116 30 45 07/29/20 14:30 116 50 112/73 (86) 89 07/29/20 14:16 36 115/95 Mechanical Ventilator 45 07/29/20 14:16 51 112/73 Mechanical Ventilator 45 07/29/20 14:00 56 115/95 Mechanical Ventilator 45 07/29/20 14:00 114 55 120/80 (93) 91 07/29/20 13:30 110 56 117/73 (88) 91 07/29/20 13:23 113 30 45 07/29/20 13:00 113 56 110/69 (83) 90 07/29/20 13:00 56 105/78 Mechanical Ventilator 45 07/29/20 12:45 58 110/69 Mechanical Ventilator 45 07/29/20 12:30 113 57 97/71 (80) 90 07/29/20 12:30 43 113/72 Mechanical Ventilator 45 07/29/20 12:15 57 97/71 Mechanical Ventilator 45 07/29/20 12:00 111 07/29/20 12:00 45 07/29/20 12:00 55 116/61 Mechanical Ventilator 45 07/29/20 12:00 Mechanical Ventilator Mechanical Ventilator Mechanical Ventilator 07/29/20 12:00 98.3 113 58 111/72 (85) 87 I&O Intake and Output 07/29/20 07/30/20 19:00 07:00 Intake Total 1512.10 ml 1115 ml Output Total 520 ml 565 ml Balance 992.10 ml 550 ml Free Water 100 ml 200 ml IV Total 917.10 ml 915 ml Tube Feeding 495 ml 0 ml Output Urine Total 520 ml 565 ml # Bowel Movements 1 2 Dressing: other Wound: other Cardiovascular: RSR Respiratory: decreased breath sounds, other Abdomen: soft, non-tender, present bowel sounds, non-distended Extremities: no edema, no tenderness, no cyanosis Laboratory Tests Test 07/30/20 03:30 White Blood Count 13.0 K/UL (4.8-10.8) H Red Blood Count 3.00 M/UL (4.20-5.40) L Hemoglobin 8.5 G/DL (12.0-16.0) L Hematocrit 28.4 % (37.0-47.0) L Mean Corpuscular Volume 95 FL (80-99) Mean Corpuscular Hemoglobin 28.2 PG (27.0-31.0) Mean Corpuscular Hemoglobin Concent 29.8 G/DL (32.0-36.0) L Red Cell Distribution Width 17.8 % (11.6-14.8) H Platelet Count 266 K/UL (150-450) Mean Platelet Volume 7.5 FL (6.5-10.1) Neutrophils (%) (Auto) 68.2 % (45.0-75.0) Lymphocytes (%) (Auto) 19.7 % (20.0-45.0) L Monocytes (%) (Auto) 6.7 % (1.0-10.0) Eosinophils (%) (Auto) 4.8 % (0.0-3.0) H Basophils (%) (Auto) 0.6 % (0.0-2.0) Prothrombin Time 12.5 SEC (9.30-11.50) H Prothromb Time International Ratio 1.1 (0.9-1.1) Activated Partial Thromboplast Time 33 SEC (23-33) Sodium Level 144 MMOL/L (136-145) Potassium Level 4.8 MMOL/L (3.5-5.1) Chloride Level 103 MMOL/L (98-107) Carbon Dioxide Level 40 MMOL/L (21-32) H Anion Gap -1 mmol/L (5-15) L Blood Urea Nitrogen 4 mg/dL (7-18) L Creatinine 0.5 MG/DL (0.55-1.30) #L Estimat Glomerular Filtration Rate > 60 mL/min (>60) Glucose Level 121 MG/DL (74-106) H Calcium Level 8.1 MG/DL (8.5-10.1) L Total Bilirubin 0.4 MG/DL (0.2-1.0) Aspartate Amino Transf (AST/SGOT) 21 U/L (15-37) Alanine Aminotransferase (ALT/SGPT) 18 U/L (12-78) Alkaline Phosphatase 72 U/L (46-116) Total Protein 6.5 G/DL (6.4-8.2) Albumin 2.2 G/DL (3.4-5.0) L Globulin 4.3 g/dL Albumin/Globulin Ratio 0.5 (1.0-2.7) L Plan Problems: (1) Respiratory distress (2) Respiratory failure Assessment & Plan: 50-year-old female Covid positive respiratory insufficiency intubated on ventilatory support declining. Leukocytosis increase oxygen requirement. Vent settings per pulmonology reviewed identified and agree. Unfortunately further surgical invention at this time is not appropriate as patient is not a candidate and her current condition. Prognosis overall guarded. Tracheostomy can be considered in the future if recovering or shows improvement and requires unable to be weaned from ventilator support. Currently okay for nutritional optimization with NG tube. Will need significant monitoring for decubitus formation given patient's size and condition. Okay for air mattress tolerated. Turn every 2 hours as tolerated. Patient is otherwise critically ill and blood pressure labile. Will need to monitor closely.Bilateral infiltrates are again demonstrated. Stable tube and line positions. will need trach will need to wean vent first no cuff leak trach okay Improving weaning well DC planning placement much improved peg placement trach changed acls now resuscitated (3) Hypoxia (4) Pneumonia due to COVID-19 virus Assessment & Plan: ++ as per pulm and ID (5) Diabetes mellitus out of control Assessment & Plan: DAILY ESTIMATED NEEDS: Needs based on Critical care, obesity 11-14kcal/kg actual body wt (140kg) kcals/kg 7068-2818 total kcals 1.5-2.0g prot/kg IBW (64.5kg) g protein/kg 96-129 g total protein 25-30ml/kg abw (83kg) mL/kg 5692-3897 total fluid mLs NUTRITION DIAGNOSIS: Swallowing difficulty R/T respiratory failure as evidenced by pt orally intubated and sedated, on OGT feeds. CURRENT TF: Vital 1.2 goal of 60ml/hr ENTERAL NUTRITION RECOMMENDATIONS: Vital AF 1.2 @ 60ml/hr x 24 hrs to provide 1440ml, 1728kcal, 108g prot, 1168ml free water * Maintain current critical care and carb controlled TF formula of Vital AF * TF @ goal meeds 100% est kcal/prot needs * HOB over 30 degrees/ water flush per MD TF may be lowered to 55ml/hr for improved BG control while maintaining Kcal and pro needs. ADDITIONAL RECOMMENDATIONS: * Calibrated bedscale wt * Monitor Propofol rate, need for TF adjustment-> now off * Monitor BGs closely : now improved, on novolog q 6rs + NISS * Monitor lytes- K elevated, monitor need for TF change * Rec bowel regimen- now w/ rectal tube . (6) Pneumothorax on right Assessment & Plan: right tension pneumothorax trach changed for cuff leak and decreased volumes pressures high after and ptx tension acls resuscitated right chest tube placed ptx resolved cont chest tube to suction am cxr wean vent Right chest tube, tracheostomy, nasogastric tube remain. Previously demonstrated subcutaneous emphysema has nearly completely cleared, with only questionably small residual in the left supraclavicular fossa. Extensive b ilateral infiltrates persist. There is no pneumothorax currently. The heart is borderline enlarged. Pneumoperitoneum persists, may be slightly decreased Impression: Markedly improved subcutaneous emphysema Unchanged bilateral infiltrates Persistent but perhaps slightly decreased pneumoperitoneum chest tube removed 07/29 f/u cxr new chest tube 07/30 (7) DEVENDRA (acute kidney injury) (8) Morbid obesity Az Devine Jul 30, 2020 11:58
--- NOTE | 2020-07-30 12:21 | General Progress Note ---
Subjective ROS Limited/Unobtainable: No Allergies: Coded Allergies: No Known Allergies (Unverified , 05/28/20) Objective Last 24 Hour Vital Signs Date Time Temp Pulse Resp B/P (MAP) Pulse Ox O2 Delivery O2 Flow Rate FiO2 07/30/20 12:15 113 28 104/58 (73) 100 07/30/20 12:00 113 07/30/20 12:00 45 07/30/20 12:00 98.7 115 25 93/56 (68) 99 07/30/20 11:45 114 35 96/52 (67) 97 07/30/20 11:30 117 35 85/55 (65) 96 07/30/20 11:00 116 32 94/53 (67) 100 07/30/20 11:00 32 94/53 Mechanical Ventilator 45 07/30/20 11:00 32 94/53 Mechanical Ventilator 45 07/30/20 11:00 117 28 98/47 (64) 96 07/30/20 10:30 117 30 96/56 (69) 100 07/30/20 10:00 28 104/56 Mechanical Ventilator 55 07/30/20 10:00 28 104/56 Mechanical Ventilator 55 07/30/20 10:00 115 28 104/56 (72) 100 07/30/20 09:30 115 30 103/58 (73) 100 07/30/20 09:00 115 30 115/66 (82) 100 07/30/20 09:00 36 115/56 Mechanical Ventilator 55 07/30/20 09:00 36 115/66 Mechanical Ventilator 55 07/30/20 08:30 114 36 114/63 (80) 99 07/30/20 08:00 98.4 40 100/67 (78) 100 07/30/20 08:00 114 07/30/20 08:00 40 100/67 Mechanical Ventilator 55 07/30/20 08:00 40 100/67 Mechanical Ventilator 55 07/30/20 08:00 60 07/30/20 07:30 112 28 103/64 (77) 100 07/30/20 07:00 28 103/64 Mechanical Ventilator 60 07/30/20 07:00 28 103/64 Mechanical Ventilator 60 07/30/20 07:00 115 27 118/65 (82) 99 07/30/20 06:15 119 25 108/78 (88) 100 07/30/20 06:00 116 28 118/73 (88) 99 07/30/20 05:45 116 30 120/68 (85) 100 07/30/20 05:30 117 30 110/53 (72) 97 07/30/20 05:15 116 30 116/58 (77) 99 07/30/20 05:00 116 24 112/74 (87) 99 07/30/20 05:00 26 116/68 Mechanical Ventilator 60 07/30/20 05:00 26 116/58 Mechanical Ventilator 60 07/30/20 04:45 116 31 105/60 (75) 99 07/30/20 04:30 115 26 98/54 (69) 100 07/30/20 04:15 116 25 104/62 (76) 100 07/30/20 04:00 60 07/30/20 04:00 115 07/30/20 04:00 27 104/62 Mechanical Ventilator 60 07/30/20 04:00 27 104/62 Mechanical Ventilator 60 07/30/20 04:00 Mechanical Ventilator Mechanical Ventilator 07/30/20 04:00 97.8 115 28 122/62 (82) 99 07/30/20 03:45 115 30 116/63 (80) 100 07/30/20 03:30 116 31 106/60 (75) 100 07/30/20 03:15 116 30 55 07/30/20 03:15 114 48 105/70 (82) 100 07/30/20 03:00 116 41 108/69 (82) 99 07/30/20 03:00 32 105/70 Mechanical Ventilator 60 07/30/20 03:00 32 105/70 Mechanical Ventilator 60 07/30/20 02:45 116 38 106/70 (82) 99 07/30/20 02:30 115 43 113/64 (80) 99 07/30/20 02:15 115 36 119/60 (79) 99 07/30/20 02:00 43 119/60 Mechanical Ventilator 60 07/30/20 02:00 43 119/60 Mechanical Ventilator 60 07/30/20 02:00 113 35 117/68 (84) 100 07/30/20 01:45 112 21 107/66 (80) 100 07/30/20 01:30 111 31 118/74 (89) 100 07/30/20 01:15 96.5 112 20 113/73 (86) 100 07/30/20 01:00 112 48 114/76 (89) 100 07/30/20 01:00 25 113/73 Mechanical Ventilator 60 07/30/20 01:00 25 113/73 Mechanical Ventilator 60 07/30/20 00:45 113 23 110/78 (89) 100 07/30/20 00:37 26 126/79 Mechanical Ventilator 60 07/30/20 00:30 114 39 126/79 (95) 100 07/30/20 00:15 114 31 125/77 (93) 100 07/30/20 00:00 96.7 116 40 119/92 (101) 100 07/30/20 00:00 116 07/30/20 00:00 60 07/30/20 00:00 39 125/77 Mechanical Ventilator 60 07/30/20 00:00 39 125/77 Mechanical Ventilator 60 07/30/20 00:00 Mechanical Ventilator Mechanical Ventilator 07/29/20 23:45 117 55 110/70 (83) 100 07/29/20 23:30 115 63 129/86 (100) 99 07/29/20 23:15 115 37 120/84 (96) 99 07/29/20 23:15 117 16 60 07/29/20 23:00 47 120/84 Mechanical Ventilator 60 07/29/20 23:00 47 120/84 Mechanical Ventilator 60 07/29/20 23:00 116 26 92/78 (83) 100 07/29/20 22:45 116 23 100/73 (82) 100 07/29/20 22:35 117 28 114/69 (84) 100 07/29/20 22:00 97.7 113 21 96/54 (68) 100 07/29/20 22:00 26 114/69 Mechanical Ventilator 60 07/29/20 22:00 26 114/69 Mechanical Ventilator 60 07/29/20 21:45 114 15 101/48 (65) 100 07/29/20 21:45 19 97/56 Mechanical Ventilator 65 07/29/20 21:30 117 32 99/60 (73) 100 07/29/20 21:15 116 30 97/56 (70) 100 07/29/20 21:00 119 31 104/60 (75) 100 07/29/20 21:00 19 97/56 Mechanical Ventilator 65 07/29/20 21:00 19 97/56 Mechanical Ventilator 65 07/29/20 20:55 99.1 07/29/20 20:45 119 29 116/62 (80) 100 07/29/20 20:30 120 26 127/73 (91) 100 07/29/20 20:15 123 23 120/73 (89) 100 07/29/20 20:00 122 07/29/20 20:00 Mechanical Ventilator Mechanical Ventilator 07/29/20 20:00 26 100/60 Mechanical Ventilator 65 07/29/20 20:00 26 100/60 Mechanical Ventilator 65 07/29/20 20:00 99.3 124 26 120/77 (91) 100 07/29/20 20:00 65 07/29/20 19:45 126 48 123/84 (97) 81 07/29/20 19:30 123 44 125/77 (93) 84 07/29/20 19:20 125 28 65 07/29/20 19:15 120 41 128/70 (89) 84 07/29/20 19:00 41 125/92 Mechanical Ventilator 45 07/29/20 19:00 41 125/92 Mechanical Ventilator 45 07/29/20 19:00 124 48 125/92 (103) 91 07/29/20 18:30 115 31 121/69 (86) 87 07/29/20 18:00 36 127/70 Mechanical Ventilator 45 07/29/20 18:00 36 127/70 Mechanical Ventilator 45 07/29/20 18:00 117 35 113/80 (91) 92 07/29/20 17:30 116 33 114/75 (88) 94 07/29/20 17:00 116 33 119/75 (90) 85 07/29/20 17:00 34 109/71 Mechanical Ventilator 45 07/29/20 17:00 34 109/71 Mechanical Ventilator 45 07/29/20 16:30 119 54 107/72 (84) 88 07/29/20 16:00 Mechanical Ventilator Mechanical Ventilator Mechanical Ventilator 07/29/20 16:00 99.5 120 31 84/66 (72) 97 07/29/20 16:00 49 115/73 Mechanical Ventilator 45 07/29/20 16:00 49 115/73 Mechanical Ventilator 45 07/29/20 16:00 118 07/29/20 16:00 45 07/29/20 15:30 116 43 110/69 (83) 87 07/29/20 15:00 116 49 117/77 (90) 89 07/29/20 15:00 42 126/75 Mechanical Ventilator 45 07/29/20 15:00 42 126/75 Mechanical Ventilator 45 07/29/20 14:35 116 30 45 07/29/20 14:30 116 50 112/73 (86) 89 07/29/20 14:16 36 115/95 Mechanical Ventilator 45 07/29/20 14:16 51 112/73 Mechanical Ventilator 45 07/29/20 14:00 56 115/95 Mechanical Ventilator 45 07/29/20 14:00 114 55 120/80 (93) 91 07/29/20 13:30 110 56 117/73 (88) 91 07/29/20 13:23 113 30 45 07/29/20 13:00 113 56 110/69 (83) 90 07/29/20 13:00 56 105/78 Mechanical Ventilator 45 07/29/20 12:45 58 110/69 Mechanical Ventilator 45 07/29/20 12:30 113 57 97/71 (80) 90 07/29/20 12:30 43 113/72 Mechanical Ventilator 45 Intake and Output 07/29/20 07/30/20 19:00 07:00 Intake Total 1512.10 ml 1115 ml Output Total 520 ml 565 ml Balance 992.10 ml 550 ml Free Water 100 ml 200 ml IV Total 917.10 ml 915 ml Tube Feeding 495 ml 0 ml Output Urine Total 520 ml 565 ml # Bowel Movements 1 2 Laboratory Tests 07/30/20 03:30: White Blood Count 13.0H, Red Blood Count 3.00L, Hemoglobin 8.5L, Hematocrit 28.4L, Mean Corpuscular Volume 95, Mean Corpuscular Hemoglobin 28.2, Mean Corpuscular Hemoglobin Concent 29.8L, Red Cell Distribution Width 17.8H, Platelet Count 266, Mean Platelet Volume 7.5, Neutrophils (%) (Auto) 68.2, Lymphocytes (%) (Auto) 19.7L, Monocytes (%) (Auto) 6.7, Eosinophils (%) (Auto) 4.8H, Basophils (%) (Auto) 0.6, Prothrombin Time 12.5H, Prothromb Time International Ratio 1.1, Activated Partial Thromboplast Time 33, Sodium Level 144, Potassium Level 4.8, Chloride Level 103, Carbon Dioxide Level 40H, Anion Gap -1L, Blood Urea Nitrogen 4L, Creatinine 0.5#L, Estimat Glomerular Filtration Rate > 60, Glucose Level 121H, Calcium Level 8.1L, Total Bilirubin 0.4, Aspartate Amino Transf (AST/SGOT) 21, Alanine Aminotransferase (ALT/SGPT) 18, Alkaline Phosphatase 72, Total Protein 6.5, Albumin 2.2L, Globulin 4.3, Albumin/Globulin Ratio 0.5L Height (Feet): 5 Height (Inches): 5.00 Weight (Pounds): 223 General Appearance: no apparent distress EENT: normal ENT inspection Neck: supple Cardiovascular: normal rate Respiratory/Chest: decreased breath sounds Abdomen: hypoactive bowel sounds Extremities: non-tender Assessment/Plan Problem List: (1) Morbid obesity ICD Codes: E66.01 - Morbid (severe) obesity due to excess calories SNOMED: 667614384 (2) DEVENDRA (acute kidney injury) ICD Codes: N17.9 - Acute kidney failure, unspecified SNOMED: 9469663, 62084475 (3) Diabetes mellitus out of control ICD Codes: E11.65 - Type 2 diabetes mellitus with hyperglycemia SNOMED: 86129565, 902550126 (4) Pneumonia due to COVID-19 virus ICD Codes: U07.1 - COVID-19; J12.82 - Pneumonia due to coronavirus disease 2019 SNOMED: 149389293484384814 (5) Hypoxia ICD Codes: R09.02 - Hypoxemia SNOMED: 612059180 (6) Respiratory failure ICD Codes: J96.90 - Respiratory failure, unspecified, unspecified whether with hypoxia or hypercapnia SNOMED: 823133281 Status: unchanged Assessment/Plan: s/p PEG GTF colace miralax will Ryan Dubose MD Jul 30, 2020 12:21
--- NOTE | 2020-07-30 13:18 | Diagnostic Imaging Report ---
Indication: Pneumothorax. Status post chest tube placement. Technique: Portable frontal view of the chest. Comparison: Exam earlier the same day Findings: Interval placement of a right smallbore chest tube/thoracic vent with evacuation of the right-sided pneumothorax with small pneumothorax persisting in the apex. A sense of bilateral infiltrates are again seen similar to the prior exam. No evidence of pneumothorax on left. Tracheostomy tube is again seen. Heart size and osseous structures stable. IMPRESSION: Interval placement of a right-sided small bore chest tube/thoracic vent and evacuation of the right-sided pneumothorax with only a small residual pneumothorax in the right apex.
--- NOTE | 2020-07-30 13:33 | Diagnostic Imaging Report ---
Indication: Chest pain. Pneumothorax. Technique: XRAY Chest 1v Comparison: 07/27/2020 FINDINGS/IMPRESSION: Right-sided chest tube has been removed. Previously seen right-sided pneumothorax has increased now moderate to large in size. Additional findings similar to prior exam. Exam performed before 8AM. It was not sent to teleradiology service for STAT read. Subsequent STAT chest xray showed evacuation of pneumothorax with smallbore chest tube/thoracic vent.
--- NOTE | 2020-07-30 13:55 | NUR ---
[employer] NOTES SPOKE WITH [employer] FROM THE INS[employer]ANCE [employer]ADE AWARE OF PT REQUIRING AN LTACH. PT'S INSURANCE IS NOT CONTRACTED WITH AN LTACH. PER CHAVEZ SHE WILL LOOK FOR AN SUBACUTE. WILL FOLLOW UP WITH PLACEMENT.
--- NOTE | 2020-07-30 14:08 | General Progress Note ---
Subjective Constitutional: Reports: weakness Allergies: Coded Allergies: No Known Allergies (Unverified , 05/28/20) All Systems: reviewed and negative except above Subjective trach vent in icu Objective Last 24 Hour Vital Signs Date Time Temp Pulse Resp B/P (MAP) Pulse Ox O2 Delivery O2 Flow Rate FiO2 07/30/20 13:00 115 33 104/59 (74) 99 07/30/20 12:15 113 28 104/58 (73) 100 07/30/20 12:00 113 07/30/20 12:00 45 07/30/20 12:00 28 104/58 Mechanical Ventilator 45 07/30/20 12:00 32 104/58 Mechanical Ventilator 45 07/30/20 12:00 98.7 115 25 93/56 (68) 99 07/30/20 11:45 114 35 96/52 (67) 97 07/30/20 11:30 117 35 85/55 (65) 96 07/30/20 11:00 116 32 94/53 (67) 100 07/30/20 11:00 32 94/53 Mechanical Ventilator 45 07/30/20 11:00 32 94/53 Mechanical Ventilator 45 07/30/20 11:00 117 28 98/47 (64) 96 07/30/20 10:30 117 30 96/56 (69) 100 07/30/20 10:00 28 104/56 Mechanical Ventilator 55 07/30/20 10:00 28 104/56 Mechanical Ventilator 55 07/30/20 10:00 115 28 104/56 (72) 100 07/30/20 09:30 115 30 103/58 (73) 100 07/30/20 09:00 115 30 115/66 (82) 100 07/30/20 09:00 36 115/56 Mechanical Ventilator 55 07/30/20 09:00 36 115/66 Mechanical Ventilator 55 07/30/20 08:30 114 36 114/63 (80) 99 07/30/20 08:00 98.4 40 100/67 (78) 100 07/30/20 08:00 114 07/30/20 08:00 40 100/67 Mechanical Ventilator 55 07/30/20 08:00 40 100/67 Mechanical Ventilator 55 07/30/20 08:00 60 07/30/20 07:30 112 28 103/64 (77) 100 07/30/20 07:00 28 103/64 Mechanical Ventilator 60 07/30/20 07:00 28 103/64 Mechanical Ventilator 60 07/30/20 07:00 115 27 118/65 (82) 99 07/30/20 06:15 119 25 108/78 (88) 100 07/30/20 06:00 116 28 118/73 (88) 99 07/30/20 05:45 116 30 120/68 (85) 100 07/30/20 05:30 117 30 110/53 (72) 97 07/30/20 05:15 116 30 116/58 (77) 99 07/30/20 05:00 116 24 112/74 (87) 99 07/30/20 05:00 26 116/68 Mechanical Ventilator 60 07/30/20 05:00 26 116/58 Mechanical Ventilator 60 07/30/20 04:45 116 31 105/60 (75) 99 07/30/20 04:30 115 26 98/54 (69) 100 07/30/20 04:15 116 25 104/62 (76) 100 07/30/20 04:00 60 07/30/20 04:00 115 07/30/20 04:00 27 104/62 Mechanical Ventilator 60 07/30/20 04:00 27 104/62 Mechanical Ventilator 60 07/30/20 04:00 Mechanical Ventilator Mechanical Ventilator 07/30/20 04:00 97.8 115 28 122/62 (82) 99 07/30/20 03:45 115 30 116/63 (80) 100 07/30/20 03:30 116 31 106/60 (75) 100 07/30/20 03:15 116 30 55 07/30/20 03:15 114 48 105/70 (82) 100 07/30/20 03:00 116 41 108/69 (82) 99 07/30/20 03:00 32 105/70 Mechanical Ventilator 60 07/30/20 03:00 32 105/70 Mechanical Ventilator 60 07/30/20 02:45 116 38 106/70 (82) 99 07/30/20 02:30 115 43 113/64 (80) 99 07/30/20 02:15 115 36 119/60 (79) 99 07/30/20 02:00 43 119/60 Mechanical Ventilator 60 07/30/20 02:00 43 119/60 Mechanical Ventilator 60 07/30/20 02:00 113 35 117/68 (84) 100 07/30/20 01:45 112 21 107/66 (80) 100 07/30/20 01:30 111 31 118/74 (89) 100 07/30/20 01:15 96.5 112 20 113/73 (86) 100 07/30/20 01:00 112 48 114/76 (89) 100 07/30/20 01:00 25 113/73 Mechanical Ventilator 60 07/30/20 01:00 25 113/73 Mechanical Ventilator 60 07/30/20 00:45 113 23 110/78 (89) 100 07/30/20 00:37 26 126/79 Mechanical Ventilator 60 07/30/20 00:30 114 39 126/79 (95) 100 07/30/20 00:15 114 31 125/77 (93) 100 07/30/20 00:00 96.7 116 40 119/92 (101) 100 07/30/20 00:00 116 07/30/20 00:00 60 07/30/20 00:00 39 125/77 Mechanical Ventilator 60 07/30/20 00:00 39 125/77 Mechanical Ventilator 60 07/30/20 00:00 Mechanical Ventilator Mechanical Ventilator 07/29/20 23:45 117 55 110/70 (83) 100 07/29/20 23:30 115 63 129/86 (100) 99 07/29/20 23:15 115 37 120/84 (96) 99 07/29/20 23:15 117 16 60 07/29/20 23:00 47 120/84 Mechanical Ventilator 60 07/29/20 23:00 47 120/84 Mechanical Ventilator 60 07/29/20 23:00 116 26 92/78 (83) 100 07/29/20 22:45 116 23 100/73 (82) 100 07/29/20 22:35 117 28 114/69 (84) 100 07/29/20 22:00 97.7 113 21 96/54 (68) 100 07/29/20 22:00 26 114/69 Mechanical Ventilator 60 07/29/20 22:00 26 114/69 Mechanical Ventilator 60 07/29/20 21:45 114 15 101/48 (65) 100 07/29/20 21:45 19 97/56 Mechanical Ventilator 65 07/29/20 21:30 117 32 99/60 (73) 100 07/29/20 21:15 116 30 97/56 (70) 100 07/29/20 21:00 119 31 104/60 (75) 100 07/29/20 21:00 19 97/56 Mechanical Ventilator 65 07/29/20 21:00 19 97/56 Mechanical Ventilator 65 07/29/20 20:55 99.1 07/29/20 20:45 119 29 116/62 (80) 100 07/29/20 20:30 120 26 127/73 (91) 100 07/29/20 20:15 123 23 120/73 (89) 100 07/29/20 20:00 122 07/29/20 20:00 Mechanical Ventilator Mechanical Ventilator 07/29/20 20:00 26 100/60 Mechanical Ventilator 65 07/29/20 20:00 26 100/60 Mechanical Ventilator 65 07/29/20 20:00 99.3 124 26 120/77 (91) 100 07/29/20 20:00 65 07/29/20 19:45 126 48 123/84 (97) 81 07/29/20 19:30 123 44 125/77 (93) 84 07/29/20 19:20 125 28 65 07/29/20 19:15 120 41 128/70 (89) 84 07/29/20 19:00 41 125/92 Mechanical Ventilator 45 07/29/20 19:00 41 125/92 Mechanical Ventilator 45 07/29/20 19:00 124 48 125/92 (103) 91 07/29/20 18:30 115 31 121/69 (86) 87 07/29/20 18:00 36 127/70 Mechanical Ventilator 45 07/29/20 18:00 36 127/70 Mechanical Ventilator 45 07/29/20 18:00 117 35 113/80 (91) 92 07/29/20 17:30 116 33 114/75 (88) 94 07/29/20 17:00 116 33 119/75 (90) 85 07/29/20 17:00 34 109/71 Mechanical Ventilator 45 07/29/20 17:00 34 109/71 Mechanical Ventilator 45 07/29/20 16:30 119 54 107/72 (84) 88 07/29/20 16:00 Mechanical Ventilator Mechanical Ventilator Mechanical Ventilator 07/29/20 16:00 99.5 120 31 84/66 (72) 97 07/29/20 16:00 49 115/73 Mechanical Ventilator 45 07/29/20 16:00 49 115/73 Mechanical Ventilator 45 07/29/20 16:00 118 07/29/20 16:00 45 07/29/20 15:30 116 43 110/69 (83) 87 07/29/20 15:00 116 49 117/77 (90) 89 07/29/20 15:00 42 126/75 Mechanical Ventilator 45 07/29/20 15:00 42 126/75 Mechanical Ventilator 45 07/29/20 14:35 116 30 45 07/29/20 14:30 116 50 112/73 (86) 89 07/29/20 14:16 36 115/95 Mechanical Ventilator 45 07/29/20 14:16 51 112/73 Mechanical Ventilator 45 Intake and Output 07/29/20 07/30/20 19:00 07:00 Intake Total 1512.10 ml 1115 ml Output Total 520 ml 565 ml Balance 992.10 ml 550 ml Free Water 100 ml 200 ml IV Total 917.10 ml 915 ml Tube Feeding 495 ml 0 ml Output Urine Total 520 ml 565 ml # Bowel Movements 1 2 Laboratory Tests 07/30/20 03:30: White Blood Count 13.0H, Red Blood Count 3.00L, Hemoglobin 8.5L, Hematocrit 28.4L, Mean Corpuscular Volume 95, Mean Corpuscular Hemoglobin 28.2, Mean Corpuscular Hemoglobin Concent 29.8L, Red Cell Distribution Width 17.8H, Platelet Count 266, Mean Platelet Volume 7.5, Neutrophils (%) (Auto) 68.2, Lymphocytes (%) (Auto) 19.7L, Monocytes (%) (Auto) 6.7, Eosinophils (%) (Auto) 4.8H, Basophils (%) (Auto) 0.6, Prothrombin Time 12.5H, Prothromb Time International Ratio 1.1, Activated Partial Thromboplast Time 33, Sodium Level 144, Potassium Level 4.8, Chloride Level 103, Carbon Dioxide Level 40H, Anion Gap -1L, Blood Urea Nitrogen 4L, Creatinine 0.5#L, Estimat Glomerular Filtration Rate > 60, Glucose Level 121H, Calcium Level 8.1L, Total Bilirubin 0.4, Aspartate Amino Transf (AST/SGOT) 21, Alanine Aminotransferase (ALT/SGPT) 18, Alkaline Phosphatase 72, Total Protein 6.5, Albumin 2.2L, Globulin 4.3, Albumin/Globulin Ratio 0.5L Height (Feet): 5 Height (Inches): 5.00 Weight (Pounds): 223 General Appearance: lethargic EENT: normal ENT inspection Neck: normal alignment Cardiovascular: normal peripheral pulses, normal rate Respiratory/Chest: chest wall non-tender, lungs clear, normal breath sounds Abdomen: normal bowel sounds, non tender, soft Extremities: normal inspection Edema: no edema noted Arm (L), no edema noted Arm (R), no edema noted Leg (L), no edema noted Leg (R), no edema noted Pedal (L), no edema noted Pedal (R), no edema noted Generalized Neurologic: motor weakness Skin: normal pigmentation, warm/dry Assessment/Plan Problem List: (1) Hypoxia ICD Codes: R09.02 - Hypoxemia SNOMED: 166133487 (2) Respiratory failure ICD Codes: J96.90 - Respiratory failure, unspecified, unspecified whether with hypoxia or hypercapnia SNOMED: 361603832 (3) Respiratory distress ICD Codes: R06.03 - Acute respiratory distress; J12.82 - Pneumonia due to coronavirus disease 2019 SNOMED: 129689416 (4) Pneumonia due to COVID-19 virus ICD Codes: U07.1 - COVID-19; J12.82 - Pneumonia due to coronavirus disease 2019 SNOMED: 777305518279309969 Status: unchanged Assessment/Plan: vent abx id pulm f/u cbc bmp am ltach Tank Cheng DO Jul 30, 2020 14:08
--- NOTE | 2020-07-30 14:15 | NUR ---
INSURANCE CLINICALS FAXED TO [facility] T: [phone] EXT [phone] F: [phone]
[2020-07-30] MEDS: fentaNYL 2500mcg/NS 250ml 250 ML IV SCH (17:00)
--- NOTE | 2020-07-30 19:14 | NUR ---
Pt with tube feeds at 30. Following RN notified about goal rate of 55. Pt remains with R chest tube. Pt remains with marrero. Pt has fentanyl infusing. Report given to RAKEL Matthews. All questions answered. Care continues.
--- NOTE | 2020-07-30 19:30 | NUR ---
NURSE NOTES: Received pt awake, on Fentanyl drip at 100mcg/hr for RASS SCORE -2. Trache to vent on ac mode , Chest tube RT at chest , with drsg dry and intact 02 sat >95%. Pt with Glucerna 1.2 at 30ml/hr. goal 55. Pt with PICC line ROX with IVF D5NS at 50ml/hr and Fentanyl at 100mcg/hr, ST low 100s on the monitor, Bp stable, temp 99.5 Rectally. Lennon to gravity with jordyn yellow urine approx 30-50ml/hr. Monitor I and O. Monitor lytes . Manny continue to monitor.
[2020-07-30] MEDS: Dyna-Hex 2% Top Sol 2oz TOPIC SCH (20:12)
[2020-07-30] MEDS: Miralax 17gm pkt ORAL SCH (20:44)
--- NOTE | 2020-07-30 22:00 | NUR ---
NURSE NOTES: Suctioned and repositioned for comfort.
--- NOTE | 2020-07-30 23:00 | NUR ---
NURSE NOTES: Had x1 soft brownish stool. Cleaned moderate in amt. complete bed bath with bed changed was done.
[2020-07-31] VITALS (47 sets, daily range): BP systolic 100–149; BP diastolic 54–97
--- NOTE | 2020-07-31 01:00 | NUR ---
NURSE NOTES: Pt becomes agitated, tachypneic to 40-50s, tachycardic 130s and very wake and tense, increased Fentanyyl drip per protocol. pls see titration.
--- NOTE | 2020-07-31 03:00 | NUR ---
NURSE NOTES: Fio2 increase to 100% , pt desat to 88-90s Suctioed tn tk whitishto light yellowish secretions, HOB kept elevated, watch for any resp. distress.
[2020-07-31] MEDS: Meropenem 1 GM in NS 55 ML IVPB SCH ×3 (04:17→20:16)
--- NOTE | 2020-07-31 05:00 | NUR ---
NURSE NOTES: Complete bed bath wth bed changed was done.
[2020-07-31 05:09] LABS: HEMATOCRIT 29.3 % (37.0-47.0); HEMOGLOBIN 8.8 G/DL (12.0-16.0); MEAN CORPUSCULAR VOLUME 96 FL (80-99); PLATELET COUNT 345 K/UL (150-450); RED BLOOD COUNT 3.06 M/UL (4.20-5.40); RED CELL DISTRIBUTION WIDTH 18.2 % (11.6-14.8)
[2020-07-31 05:29] LABS: WHITE BLOOD COUNT 23.8 K/UL (4.8-10.8)
[2020-07-31] MEDS: Midodrine 10mg tab GT SCH ×3 (05:37→20:19)
[2020-07-31 05:44] LABS: ALANINE AMINOTRANSFERASE 13 U/L (12-78); ALBUMIN 2.4 G/DL (3.4-5.0); ALBUMIN/GLOBULIN RATIO 0.5 (1.0-2.7); ALKALINE PHOSPHATASE 82 U/L (46-116); ANION GAP 3 mmol/L (5-15); ASPARTATE AMINO TRANSFERASE 25 U/L (15-37); BILIRUBIN,TOTAL 0.7 MG/DL (0.2-1.0); BLOOD UREA NITROGEN 5 mg/dL (7-18); CALCIUM 8.3 MG/DL (8.5-10.1); CARBON DIOXIDE 39 MMOL/L (21-32); CHLORIDE 100 MMOL/L (98-107); CREATININE 0.4 MG/DL (0.55-1.30); POTASSIUM 4.4 MMOL/L (3.5-5.1); SODIUM 142 MMOL/L (136-145)
--- NOTE | 2020-07-31 06:00 | NUR ---
NURSE NOTES: pts fi02 kept at 100% due to desat , Fentanyl drip kept at 150mcg/hr for RASS SCORE -2
--- NOTE | 2020-07-31 06:43 | Hematology/Onc Progress Note ---
Assessment/Plan Assessment/Plan # Deep vein thrombosis of the right calf --> given onoing anemia and low plts --> consider ivc if bleeding--once stable, needs it placed --> once stable, for radiology and ivc filter placement --> on lovenox bid now # Thrombocytopenia is due to infection/underlying covid19+++ --> ABX ceftriaxone -->zosyn-->off-->meropenem --> on steriods likely cause of initial wbc --> per pulm --> plt 107->156-->192-->205 --> smear reviewed # Leukocytosis due to Pneumonia due to COVID-19 virus --> per pulm rx -> sp remdesivir --> wbc 11.9-->11-->21-->8.8-->11.7-->13-->24 # Anemia due to chronic disease --> hgb goal is >7 --> transfuse prn --> ferritin is >1000 --> hold off on iron --> 10-->9.8->9-->8-->8.2->>7.1-->7.9->7.5-->9.5-->8.5-->8.8 --> 1 unit prbc 07/24 # Elevated ddimer due to covid19++ --> duplex legs is negative --> underlying covid rx # Hypoxia -> due to covid19 --> steriods as needed # Hypoxemia --> rx same as above # Respiratory failure --> on vent/trach --> per pulm # Diabetes mellitus out of control --> hgb a1c goal <7 # Dysphagia --> s/p peg # Poor prognosis # Dvt ppx ivc filter once more stable --> dvt ppx now lovenox sq Appreciate consultation and bowen RN Subjective Allergies: Coded Allergies: No Known Allergies (Unverified , 05/28/20) All Systems: reviewed and negative except above Subjective 06/10 nv, on vent, with ogt, on fentanyl and versed, plt stable 06/11 nv, vent adjusted is on ogt, meds reviewed 06/12 nv, vent, meds noted, labs noted, no bleeding, hgb 10.4 06/13 nv, is on vent, meds reviewed, no bleeding, cbc reviewed 06/14 nv, on vent, tachy, labs reviewed, gross hematuria, febrile overnight, abx 06/17 nv, on vent, labs noted, no major changes, feeling better overnight 06/18 nv, meds reviewed, labs noted, no major events, hgb 8.6 06/19 nv, remains intubated, with fluids, labs reviewed, meds noted 06/20 nv, intubated remains on restraints, meds noted as well, as labs 06/21 nv, remains on vent, on restraints, meds reviewed, labs noted 06/22: covering Dr. Del Cid no acute events 06/23 sedated, on vent, nv, intubated, meds reviewed, versed 06/24 nv, on vent, no night sweats, no bleeding, remains in icu 06/25 nv, on vent, icu, meds noted, no bleeding, comfortable 06/26 nv, on versed, icu, weaning parameters, labs noted 06/27 nv, overnight fighting vent, as per pulm fentanyl on board 06/28 nv, on vent, labs reviewed, as per pulm, meds noted 06/30 nv, icu, labs pending, is on fentanyl, versed, no new changes 07/01 nv, icu, is on vent, labs pending, no new changes per rn 07/02 nv, icu is on vent, labs noted, hgb is stable 07/03 nv, icu, is on vent, potential trrach when stable, cbc reviewed 07/04 icu, nv, labs are noted, stable for trach today dw Rn Dl 07/05 icu, nv, on vent, with ng and picc in place, labs noted, s/p trach 07/07 icu, nv, on tv, no bleeding, labs noted, meds reviewed 07/08 icu, nv, on tv, labs reviewed, meds noted, no bleeding 07/09 icu, nv, meds noted, no bleeding, blood transfusion was completed 07/10 icu, nv, labs ntoed, no bleeding, hgb improved, hgb 7.8 07/11 icu, nv, labs reviewed, hgb is improved, for ivcf if stabilizes 07/12 icu, nv, labs reviewed, meds noted, no bleeding, remains on vent 07/13 icu, on vent, nv, no bleeding, labs reviewed, no major events, dw rn 07/14 icu, on vent, nv, tolerating ngt feeds, dw Rn, meds reviewed 07/15 icu, on vent, trach, tolerating ngt, meds noted, no bleeding 07/16 icu, vent, labs are noted, with trach, is stable, hgb 9.2 07/17 icu, had a bm overnight, remains on vent with trach, labs noted 07/18 icu, nv, labs are ntoed, no bleeding, on trach, on levophed 07/20 nc, icu, meds noted, v/t, no bleeding, labs noted, on versed 07/21 nv, trach/vent, tube feeds on hold, labs reviewed, icu 07/22 nv, icu, bp remains high, on v/t, labs noted, no bleeding 07/23 nv, ct is in place, on v/t, meds reviewed, in icu, on LEVO 07/24 nv, ct with blood secretions, to get 1 unit prbc today, icu 07/25 icu, nv, trach/v, obtunded, sedated, no bleeding, bowen rn 07/26 icu, nv, v/t, with gt, remains obtunded, as well as sedated, labs noted 07/27: no events. 07/28: remains intubated on vent 07/29 agitated, tachypneic, tachycardic is on vent, labs reviewed, meds noted 07/30 vent setting adjusted, is afebrile, no bleeding, tachycardic, labs noted 07/31 icu, trach/vent, on fentanyl gtt, labs reviewed, no bleeding Objective Objective Current Medications Medications (Trade) Dose Ordered Sig/Zelda Route PRN Reason Start Time Stop Time Status Last Admin Dose Admin Acetaminophen (Tylenol) 650 mg Q4H PRN NG Temp >100.5 07/27/20 03:45 08/26/20 03:44 07/29/20 20:24 Calcitonin [place] (Miacalcin) 1 sprays DAILY NASAL 07/22/20 14:00 10/20/20 13:59 07/30/20 08:44 Chlorhexidine Gluconate (Inna-Hex 2%) 1 applic DAILY@1999 TOPIC 07/20/20 20:00 10/18/20 19:59 07/30/20 20:12 Dextrose (Dextrose 50%) 25 ml Q30M PRN IV Hypoglycemia 06/05/20 10:45 09/03/20 10:44 Dextrose (Dextrose 50%) 50 ml Q30M PRN IV Hypoglycemia 06/05/20 10:45 09/03/20 10:44 Dextrose/Sodium Chloride 1,000 ml @ 50 mls/hr Q20H IV 07/25/20 11:15 08/24/20 11:14 07/30/20 11:31 Docusate Sodium (Colace) 100 mg TWICE A DAY NG 07/26/20 18:00 08/25/20 17:59 07/30/20 17:46 Enoxaparin Sodium (Lovenox) 110 mg EVERY 12 HOURS SUBQ 07/17/20 21:00 10/15/20 20:59 07/30/20 20:45 Fentanyl Citrate 250 ml @ 1 mls/hr Q24H IV 07/29/20 17:00 07/31/20 16:59 07/30/20 17:00 Guaifenesin/ Codeine Phosphate (Robitussin with codeine) 5 ml Q6H PRN NG For Cough 07/14/20 14:15 08/13/20 14:14 07/18/20 21:44 Lansoprazole (Prevacid) 30 mg DAILY GT 07/18/20 09:00 08/09/20 08:59 07/30/20 08:42 Meropenem 1 gm/ Sodium Chloride 55 ml @ 110 mls/hr Q8H IVPB 07/22/20 12:00 08/02/20 11:59 07/31/20 04:17 Midazolam HCl 200 ml @ 0 mls/hr Q24H PRN IV SEDATION 07/29/20 14:15 08/05/20 14:14 07/30/20 00:37 Midodrine (Pro-Amatine) 10 mg Q8HR GT 06/30/20 14:00 09/12/20 13:59 07/31/20 05:37 Polyethylene Glycol (Miralax) 17 gm BEDTIME ORAL 07/26/20 21:00 08/25/20 20:59 07/30/20 20:44 Quetiapine Fumarate (SEROqueL) 50 mg Q12HR GT 07/16/20 13:30 08/30/20 13:29 07/30/20 20:43 Last 24 Hour Vital Signs Date Time Temp Pulse Resp B/P (MAP) Pulse Ox O2 Delivery O2 Flow Rate FiO2 07/31/20 06:30 98.0 113 44 138/80 (99) 94 07/31/20 06:00 110 31 126/79 (95) 98 07/31/20 05:30 122 34 124/67 (86) 97 07/31/20 05:00 99.0 120 28 119/66 (83) 97 07/31/20 04:30 128 33 131/76 (94) 99 07/31/20 04:00 126 07/31/20 04:00 Mechanical Ventilator Mechanical Ventilator 07/31/20 04:00 101.0 133 40 141/64 (89) 87 07/31/20 04:00 50 07/31/20 03:30 128 44 121/90 (100) 89 07/31/20 03:14 120 47 50 07/31/20 03:00 122 47 149/97 (114) 88 07/31/20 02:30 113 38 117/78 (91) 98 07/31/20 02:00 111 43 120/80 (93) 98 07/31/20 02:00 42 117/96 Mechanical Ventilator 70 07/31/20 01:45 110 42 113/76 (88) 99 07/31/20 01:45 45 140/63 Mechanical Ventilator 60 07/31/20 01:30 109 42 109/73 (85) 99 07/31/20 01:30 45 140/62 Mechanical Ventilator 60 07/31/20 01:15 43 120/65 Mechanical Ventilator 60 07/31/20 01:00 108 38 113/68 (83) 98 07/31/20 01:00 43 110/65 Mechanical Ventilator 50 07/31/20 00:30 108 101/60 (74) 07/31/20 00:00 126 07/31/20 00:00 99.4 104 25 100/59 (73) 100 07/31/20 00:00 Mechanical Ventilator Mechanical Ventilator 07/31/20 00:00 43 110/65 Mechanical Ventilator 50 07/31/20 00:00 45 07/30/20 23:30 104 29 102/62 (75) 100 3/9/21 23:27 104 24 55 07/30/20 23:00 105 28 111/57 (75) 100 07/30/20 23:00 27 105/65 Mechanical Ventilator 45 07/30/20 22:45 107 21 105/64 (78) 100 07/30/20 22:30 107 23 101/78 (86) 100 07/30/20 22:15 109 27 100/68 (79) 99 07/30/20 22:00 110 19 101/66 (78) 99 07/30/20 22:00 27 100/68 Mechanical Ventilator 45 07/30/20 21:45 110 34 106/63 (77) 100 07/30/20 21:30 110 39 104/63 (77) 100 07/30/20 21:00 106 24 120/73 (89) 100 07/30/20 21:00 23 113/73 Mechanical Ventilator 45 07/30/20 20:30 107 23 125/79 (94) 100 07/30/20 20:00 45 07/30/20 20:00 109 07/30/20 20:00 33 126/74 Mechanical Ventilator 45 07/30/20 20:00 Mechanical Ventilator Mechanical Ventilator 07/30/20 20:00 99.4 112 34 127/69 (88) 90 07/30/20 19:30 112 41 55 07/30/20 19:30 114 33 120/77 (91) 84 07/30/20 19:00 27 114/60 Mechanical Ventilator 45 07/30/20 18:30 107 46 114/75 (88) 98 07/30/20 18:00 101 18 118/67 (84) 99 07/30/20 18:00 30 118/67 Mechanical Ventilator 45 07/30/20 17:30 106 41 111/65 (80) 95 07/30/20 17:00 33 111/65 40 07/30/20 17:00 104 36 111/68 (82) 92 07/30/20 16:00 106 07/30/20 16:00 45 07/30/20 16:00 98.8 104 32 106/68 (81) 100 07/30/20 16:00 33 106/68 Mechanical Ventilator 45 07/30/20 16:00 Mechanical Ventilator Mechanical Ventilator 07/30/20 15:30 107 36 78/41 (53) 98 07/30/20 15:15 107 29 92/64 (73) 99 07/30/20 15:00 107 27 89/56 (67) 100 07/30/20 15:00 105 42 45 07/30/20 15:00 31 92/64 Mechanical Ventilator 45 07/30/20 14:30 109 35 96/60 (72) 100 07/30/20 14:30 31 92/64 Mechanical Ventilator 45 07/30/20 14:00 33 91/58 Mechanical Ventilator 45 07/30/20 14:00 33 91/58 Mechanical Ventilator 45 07/30/20 14:00 114 31 91/58 (69) 100 07/30/20 13:30 115 30 96/54 (68) 100 07/30/20 13:00 115 33 104/59 (74) 99 07/30/20 13:00 28 104/59 Mechanical Ventilator 45 07/30/20 13:00 28 104/59 Mechanical Ventilator 45 07/30/20 12:15 113 28 104/58 (73) 100 07/30/20 12:00 113 07/30/20 12:00 45 07/30/20 12:00 28 104/58 Mechanical Ventilator 45 07/30/20 12:00 32 104/58 Mechanical Ventilator 45 07/30/20 12:00 98.7 115 25 93/56 (68) 99 07/30/20 12:00 Mechanical Ventilator Mechanical Ventilator 07/30/20 11:45 114 35 96/52 (67) 97 07/30/20 11:30 117 35 85/55 (65) 96 07/30/20 11:19 100 31 55 07/30/20 11:00 116 32 94/53 (67) 100 07/30/20 11:00 32 94/53 Mechanical Ventilator 45 07/30/20 11:00 32 94/53 Mechanical Ventilator 45 07/30/20 11:00 117 28 98/47 (64) 96 07/30/20 10:30 117 30 96/56 (69) 100 07/30/20 10:00 28 104/56 Mechanical Ventilator 55 07/30/20 10:00 28 104/56 Mechanical Ventilator 55 07/30/20 10:00 115 28 104/56 (72) 100 07/30/20 09:30 115 30 103/58 (73) 100 07/30/20 09:00 115 30 115/66 (82) 100 07/30/20 09:00 36 115/56 Mechanical Ventilator 55 07/30/20 09:00 36 115/66 Mechanical Ventilator 55 07/30/20 08:30 114 36 114/63 (80) 99 07/30/20 08:00 98.4 40 100/67 (78) 100 07/30/20 08:00 114 07/30/20 08:00 40 100/67 Mechanical Ventilator 55 07/30/20 08:00 40 100/67 Mechanical Ventilator 55 07/30/20 08:00 60 07/30/20 08:00 Mechanical Ventilator Mechanical Ventilator 07/30/20 07:30 112 28 103/64 (77) 100 07/30/20 07:20 100 32 55 07/30/20 07:00 28 103/64 Mechanical Ventilator 60 07/30/20 07:00 28 103/64 Mechanical Ventilator 60 07/30/20 07:00 115 27 118/65 (82) 99 07/30/20 06:15 119 25 108/78 (88) 100 07/30/20 06:00 116 28 118/73 (88) 99 07/30/20 05:45 116 30 120/68 (85) 100 07/30/20 05:30 117 30 110/53 (72) 97 07/30/20 05:15 116 30 116/58 (77) 99 07/30/20 05:00 116 24 112/74 (87) 99 07/30/20 05:00 26 116/68 Mechanical Ventilator 60 07/30/20 05:00 26 116/58 Mechanical Ventilator 60 07/30/20 04:45 116 31 105/60 (75) 99 07/30/20 04:30 115 26 98/54 (69) 100 07/30/20 04:15 116 25 104/62 (76) 100 07/30/20 04:00 60 07/30/20 04:00 115 07/30/20 04:00 27 104/62 Mechanical Ventilator 60 07/30/20 04:00 27 104/62 Mechanical Ventilator 60 07/30/20 04:00 Mechanical Ventilator Mechanical Ventilator 07/30/20 04:00 97.8 115 28 122/62 (82) 99 07/30/20 03:45 115 30 116/63 (80) 100 07/30/20 03:30 116 31 106/60 (75) 100 07/30/20 03:15 116 30 55 07/30/20 03:15 114 48 105/70 (82) 100 07/30/20 03:00 116 41 108/69 (82) 99 07/30/20 03:00 32 105/70 Mechanical Ventilator 60 07/30/20 03:00 32 105/70 Mechanical Ventilator 60 07/30/20 02:45 116 38 106/70 (82) 99 07/30/20 02:30 115 43 113/64 (80) 99 07/30/20 02:15 115 36 119/60 (79) 99 07/30/20 02:00 43 119/60 Mechanical Ventilator 60 07/30/20 02:00 43 119/60 Mechanical Ventilator 60 07/30/20 02:00 113 35 117/68 (84) 100 07/30/20 01:45 112 21 107/66 (80) 100 07/30/20 01:30 111 31 118/74 (89) 100 07/30/20 01:15 96.5 112 20 113/73 (86) 100 07/30/20 01:00 112 48 114/76 (89) 100 07/30/20 01:00 25 113/73 Mechanical Ventilator 60 07/30/20 01:00 25 113/73 Mechanical Ventilator 60 07/30/20 00:45 113 23 110/78 (89) 100 07/30/20 00:37 26 126/79 Mechanical Ventilator 60 07/30/20 00:30 114 39 126/79 (95) 100 07/30/20 00:15 114 31 125/77 (93) 100 07/30/20 00:00 96.7 116 40 119/92 (101) 100 07/30/20 00:00 116 07/30/20 00:00 60 07/30/20 00:00 39 125/77 Mechanical Ventilator 60 07/30/20 00:00 39 125/77 Mechanical Ventilator 60 07/30/20 00:00 Mechanical Ventilator Mechanical Ventilator 07/29/20 23:45 117 55 110/70 (83) 100 07/29/20 23:30 115 63 129/86 (100) 99 07/29/20 23:15 115 37 120/84 (96) 99 07/29/20 23:15 117 16 60 07/29/20 23:00 47 120/84 Mechanical Ventilator 60 07/29/20 23:00 47 120/84 Mechanical Ventilator 60 07/29/20 23:00 116 26 92/78 (83) 100 07/29/20 22:45 116 23 100/73 (82) 100 07/29/20 22:35 117 28 114/69 (84) 100 07/29/20 22:00 97.7 113 21 96/54 (68) 100 07/29/20 22:00 26 114/69 Mechanical Ventilator 60 07/29/20 22:00 26 114/69 Mechanical Ventilator 60 07/29/20 21:45 114 15 101/48 (65) 100 07/29/20 21:45 19 97/56 Mechanical Ventilator 65 07/29/20 21:30 117 32 99/60 (73) 100 07/29/20 21:15 116 30 97/56 (70) 100 07/29/20 21:00 119 31 104/60 (75) 100 07/29/20 21:00 19 97/56 Mechanical Ventilator 65 07/29/20 21:00 19 97/56 Mechanical Ventilator 65 07/29/20 20:55 99.1 07/29/20 20:45 119 29 116/62 (80) 100 07/29/20 20:30 120 26 127/73 (91) 100 07/29/20 20:15 123 23 120/73 (89) 100 07/29/20 20:00 122 07/29/20 20:00 Mechanical Ventilator Mechanical Ventilator 07/29/20 20:00 26 100/60 Mechanical Ventilator 65 07/29/20 20:00 26 100/60 Mechanical Ventilator 65 07/29/20 20:00 99.3 124 26 120/77 (91) 100 07/29/20 20:00 65 07/29/20 19:45 126 48 123/84 (97) 81 07/29/20 19:30 123 44 125/77 (93) 84 07/29/20 19:20 125 28 65 07/29/20 19:15 120 41 128/70 (89) 84 07/29/20 19:00 41 125/92 Mechanical Ventilator 45 07/29/20 19:00 41 125/92 Mechanical Ventilator 45 07/29/20 19:00 124 48 125/92 (103) 91 07/29/20 18:30 115 31 121/69 (86) 87 07/29/20 18:00 36 127/70 Mechanical Ventilator 45 07/29/20 18:00 36 127/70 Mechanical Ventilator 45 07/29/20 18:00 117 35 113/80 (91) 92 07/29/20 17:30 116 33 114/75 (88) 94 07/29/20 17:00 116 33 119/75 (90) 85 07/29/20 17:00 34 109/71 Mechanical Ventilator 45 07/29/20 17:00 34 109/71 Mechanical Ventilator 45 07/29/20 16:30 119 54 107/72 (84) 88 07/29/20 16:00 Mechanical Ventilator Mechanical Ventilator Mechanical Ventilator 07/29/20 16:00 99.5 120 31 84/66 (72) 97 07/29/20 16:00 49 115/73 Mechanical Ventilator 45 07/29/20 16:00 49 115/73 Mechanical Ventilator 45 07/29/20 16:00 118 07/29/20 16:00 45 07/29/20 15:30 116 43 110/69 (83) 87 07/29/20 15:00 116 49 117/77 (90) 89 07/29/20 15:00 42 126/75 Mechanical Ventilator 45 07/29/20 15:00 42 126/75 Mechanical Ventilator 45 07/29/20 14:35 116 30 45 07/29/20 14:30 116 50 112/73 (86) 89 07/29/20 14:16 36 115/95 Mechanical Ventilator 45 07/29/20 14:16 51 112/73 Mechanical Ventilator 45 07/29/20 14:00 56 115/95 Mechanical Ventilator 45 07/29/20 14:00 114 55 120/80 (93) 91 07/29/20 13:30 110 56 117/73 (88) 91 07/29/20 13:23 113 30 45 07/29/20 13:00 113 56 110/69 (83) 90 07/29/20 13:00 56 105/78 Mechanical Ventilator 45 07/29/20 12:45 58 110/69 Mechanical Ventilator 45 07/29/20 12:30 113 57 97/71 (80) 90 07/29/20 12:30 43 113/72 Mechanical Ventilator 45 07/29/20 12:15 57 97/71 Mechanical Ventilator 45 07/29/20 12:00 111 07/29/20 12:00 45 07/29/20 12:00 55 116/61 Mechanical Ventilator 45 07/29/20 12:00 Mechanical Ventilator Mechanical Ventilator Mechanical Ventilator 07/29/20 12:00 98.3 113 58 111/72 (85) 87 07/29/20 11:45 46 111/72 Mechanical Ventilator 45 07/29/20 11:30 30 116/69 Mechanical Ventilator 45 07/29/20 11:30 111 58 100/66 (77) 89 07/29/20 11:15 58 100/66 Mechanical Ventilator 45 07/29/20 11:12 105 23 45 07/29/20 11:00 56 111/60 Mechanical Ventilator 45 07/29/20 11:00 107 26 110/79 (89) 94 07/29/20 10:30 107 24 101/67 (78) 98 07/29/20 10:00 108 25 106/67 (80) 98 07/29/20 10:00 24 104/64 Mechanical Ventilator 45 07/29/20 09:30 108 25 109/69 (82) 100 07/29/20 09:16 112 28 45 07/29/20 09:00 24 105/70 Mechanical Ventilator 45 07/29/20 09:00 110 25 109/81 (90) 99 07/29/20 08:30 112 27 105/63 (77) 99 07/29/20 08:00 45 07/29/20 08:00 119 07/29/20 08:00 30 107/68 Mechanical Ventilator 45 07/29/20 08:00 30 107/68 Mechanical Ventilator 45 07/29/20 08:00 99.8 116 45 98/59 (72) 98 07/29/20 08:00 Mechanical Ventilator Mechanical Ventilator Mechanical Ventilator 07/29/20 07:30 118 31 96/64 (75) 97 07/29/20 07:19 120 32 45 07/29/20 07:00 121 40 119/68 (85) 94 07/29/20 07:00 43 119/68 Mechanical Ventilator 45 07/29/20 07:00 43 119/68 Mechanical Ventilator 45 07/29/20 06:46 38 118/74 Mechanical Ventilator 45 07/29/20 06:46 100.3 Intake and Output 07/30/20 07/31/20 19:00 07:00 Intake Total 1040 ml 946.25 ml Output Total 578 ml 660 ml Balance 462 ml 286.25 ml Free Water 40 ml 70 ml IV Total 760 ml 471.25 ml Tube Feeding 240 ml 405 ml Output Urine Total 560 ml 660 ml Chest Tube Drainage Total 18 ml # Bowel Movements 1 Labs Test 07/29/20 04:10 07/30/20 03:30 07/31/20 03:35 White Blood Count 11.7 K/UL (4.8-10.8) 13.0 K/UL (4.8-10.8) 23.8 K/UL (4.8-10.8) Red Blood Count 3.31 M/UL (4.20-5.40) 3.00 M/UL (4.20-5.40) 3.06 M/UL (4.20-5.40) Hemoglobin 9.5 G/DL (12.0-16.0) 8.5 G/DL (12.0-16.0) 8.8 G/DL (12.0-16.0) Hematocrit 31.7 % (37.0-47.0) 28.4 % (37.0-47.0) 29.3 % (37.0-47.0) Mean Corpuscular Volume 96 FL (80-99) 95 FL (80-99) 96 FL (80-99) Mean Corpuscular Hemoglobin 28.7 PG (27.0-31.0) 28.2 PG (27.0-31.0) 28.8 PG (27.0-31.0) Mean Corpuscular Hemoglobin Concent 30.0 G/DL (32.0-36.0) 29.8 G/DL (32.0-36.0) 30.1 G/DL (32.0-36.0) Red Cell Distribution Width 17.9 % (11.6-14.8) 17.8 % (11.6-14.8) 18.2 % (11.6-14.8) Platelet Count 295 K/UL (150-450) 266 K/UL (150-450) 345 K/UL (150-450) Mean Platelet Volume 8.2 FL (6.5-10.1) 7.5 FL (6.5-10.1) 7.2 FL (6.5-10.1) Neutrophils (%) (Auto) 49.2 % (45.0-75.0) 68.2 % (45.0-75.0) % (45.0-75.0) Lymphocytes (%) (Auto) 28.1 % (20.0-45.0) 19.7 % (20.0-45.0) % (20.0-45.0) Monocytes (%) (Auto) 5.3 % (1.0-10.0) 6.7 % (1.0-10.0) % (1.0-10.0) Eosinophils (%) (Auto) 16.6 % (0.0-3.0) 4.8 % (0.0-3.0) % (0.0-3.0) Basophils (%) (Auto) 0.9 % (0.0-2.0) 0.6 % (0.0-2.0) % (0.0-2.0) Sodium Level 143 MMOL/L (136-145) 144 MMOL/L (136-145) 142 MMOL/L (136-145) Potassium Level 4.6 MMOL/L (3.5-5.1) 4.8 MMOL/L (3.5-5.1) 4.4 MMOL/L (3.5-5.1) Chloride Level 103 MMOL/L (98-107) 103 MMOL/L (98-107) 100 MMOL/L (98-107) Carbon Dioxide Level 39 MMOL/L (21-32) 40 MMOL/L (21-32) 39 MMOL/L (21-32) Anion Gap 1 mmol/L (5-15) -1 mmol/L (5-15) 3 mmol/L (5-15) Blood Urea Nitrogen 3 mg/dL (7-18) 4 mg/dL (7-18) 5 mg/dL (7-18) Creatinine 0.3 MG/DL (0.55-1.30) 0.5 MG/DL (0.55-1.30) 0.4 MG/DL (0.55-1.30) Estimat Glomerular Filtration Rate > 60 mL/min (>60) > 60 mL/min (>60) > 60 mL/min (>60) Glucose Level 128 MG/DL (74-106) 121 MG/DL (74-106) 172 MG/DL (74-106) Calcium Level 8.3 MG/DL (8.5-10.1) 8.1 MG/DL (8.5-10.1) 8.3 MG/DL (8.5-10.1) Phosphorus Level 2.8 MG/DL (2.5-4.9) Magnesium Level 1.8 MG/DL (1.8-2.4) Total Bilirubin 0.5 MG/DL (0.2-1.0) 0.4 MG/DL (0.2-1.0) 0.7 MG/DL (0.2-1.0) Aspartate Amino Transf (AST/SGOT) 26 U/L (15-37) 21 U/L (15-37) 25 U/L (15-37) Alanine Aminotransferase (ALT/SGPT) 21 U/L (12-78) 18 U/L (12-78) 13 U/L (12-78) Alkaline Phosphatase 71 U/L (46-116) 72 U/L (46-116) 82 U/L (46-116) C-Reactive Protein, Quantitative 5.9 mg/dL (0.00-0.90) Pro-B-Type Natriuretic Peptide 489 pg/mL (0-125) Total Protein 6.9 G/DL (6.4-8.2) 6.5 G/DL (6.4-8.2) 7.0 G/DL (6.4-8.2) Albumin 2.3 G/DL (3.4-5.0) 2.2 G/DL (3.4-5.0) 2.4 G/DL (3.4-5.0) Globulin 4.6 g/dL 4.3 g/dL 4.6 g/dL Albumin/Globulin Ratio 0.5 (1.0-2.7) 0.5 (1.0-2.7) 0.5 (1.0-2.7) Prothrombin Time 12.5 SEC (9.30-11.50) Prothromb Time International Ratio 1.1 (0.9-1.1) Activated Partial Thromboplast Time 33 SEC (23-33) Height (Feet): 5 Height (Inches): 5.00 Weight (Pounds): 223 Objective GeNL: nv HEENT: ngt++ Pulm: vent/trach++ CV: rrr Abd: soft, nt, nd ++gt Ext: no cce Myron Condon MD Jul 31, 2020 06:43
--- NOTE | 2020-07-31 07:14 | NUR ---
NURSE HAND-OFF REPORT: Latest Vital Signs: Temperature 98.0 , Pulse 113 , B/P 138 /80 , Respiratory Rate 44 , O2 SAT 94 , Mechanical Ventilator, O2 Flow Rate . Vital Sign Comment: EKG Rhythm: Sinus Tachycardia Rhythm change?: Jesus TOLLIVER Notified?: Jesus EDWARDS MD Response: Latest Meyers Fall Score: 50 Fall Risk: High Risk Safety Measures: Call light Within Reach, Bed Alarm Zone 3, Side Rails Side Rails x2, Bed position Low and Locked. Fall Precautions: Yellow Socks Door Sign Patient Fall Education Report given to Elayne BOGGS.
[2020-07-31] MEDS: D5NS 1,000 ML IV SCH (07:39)
--- NOTE | 2020-07-31 08:11 | NUR ---
RADIOLOGY DEPT., CHEST X-RAY DONE.-P.DYE
--- NOTE | 2020-07-31 08:31 | Cardiac Electrophysiology PN ---
Assessment/Plan Assessment/Plan 1. Respiratory failure due to COVID-19 pneumonia. On tracheostomy on 100 % Fio2. Trach exchanged 07/22/[address] Devine Echo EF 60% 2. S/P Code x2 with hypotension and sammy arrest on 07/22/20 likely due to Pneumothorax. HR stable 3. Right Pneumothorax, S/P chest tube placement. Removed 07/29/20 Thoravent palced 07/30/20 4. Hypotension, on midodrine 10 mg 3 times daily and off pressors 5. Dysphagia. S/P PEG 07/24/20 6. Right lower extremity DVT. Follow up by Hematology. 7. Severe anemia, S/P PRBC DW RN and Dr Tyler Subjective Subjective In ICU on the Vent on 100 % Fio2 and PEEP 5 now as developed respiratory failure at 2 AM. In SR. Off pressors Coded twice for hypotension and bradycardia while on the Vent about 20 minutes after tracheostomy was changed 07/22/20 Found to have Right Pneumothorax and underwent Right chest tube placement by Dr. Devine S/P PRBC. S/P PEG 07/24/20. Chest tube removed 07/29/20 New Thora vent was placed by Dr Devine yesterday 07/30/20 Objective Last 24 Hour Vital Signs Date Time Temp Pulse Resp B/P (MAP) Pulse Ox O2 Delivery O2 Flow Rate FiO2 07/31/20 07:09 104 17 80 07/31/20 07:00 111 21 119/73 (88) 99 07/31/20 06:30 98.0 113 44 138/80 (99) 94 07/31/20 06:00 31 129/77 Mechanical Ventilator 45 07/31/20 06:00 110 31 126/79 (95) 98 07/31/20 05:30 122 34 124/67 (86) 97 07/31/20 05:00 29 121/66 Mechanical Ventilator 45 07/31/20 05:00 99.0 120 28 119/66 (83) 97 07/31/20 04:30 128 33 131/76 (94) 99 07/31/20 04:00 126 07/31/20 04:00 Mechanical Ventilator Mechanical Ventilator 07/31/20 04:00 101.0 133 40 141/64 (89) 87 07/31/20 04:00 50 07/31/20 04:00 24 125/84 Mechanical Ventilator 50 07/31/20 03:30 128 44 121/90 (100) 89 07/31/20 03:14 120 47 50 07/31/20 03:00 42 117/96 Mechanical Ventilator 60 07/31/20 03:00 122 47 149/97 (114) 88 07/31/20 02:30 113 38 117/78 (91) 98 07/31/20 02:00 111 43 120/80 (93) 98 07/31/20 02:00 42 117/96 Mechanical Ventilator 70 07/31/20 01:45 110 42 113/76 (88) 99 07/31/20 01:45 45 140/63 Mechanical Ventilator 60 07/31/20 01:30 109 42 109/73 (85) 99 07/31/20 01:30 45 140/62 Mechanical Ventilator 60 07/31/20 01:15 43 120/65 Mechanical Ventilator 60 07/31/20 01:00 108 38 113/68 (83) 98 07/31/20 01:00 43 110/65 Mechanical Ventilator 50 07/31/20 00:30 108 101/60 (74) 07/31/20 00:00 126 07/31/20 00:00 99.4 104 25 100/59 (73) 100 07/31/20 00:00 Mechanical Ventilator Mechanical Ventilator 07/31/20 00:00 43 110/65 Mechanical Ventilator 50 07/31/20 00:00 45 07/30/20 23:30 104 29 102/62 (75) 100 07/30/20 23:27 104 24 55 07/30/20 23:00 105 28 111/57 (75) 100 07/30/20 23:00 27 105/65 Mechanical Ventilator 45 07/30/20 22:45 107 21 105/64 (78) 100 07/30/20 22:30 107 23 101/78 (86) 100 07/30/20 22:15 109 27 100/68 (79) 99 07/30/20 22:00 110 19 101/66 (78) 99 07/30/20 22:00 27 100/68 Mechanical Ventilator 45 07/30/20 21:45 110 34 106/63 (77) 100 07/30/20 21:30 110 39 104/63 (77) 100 07/30/20 21:00 106 24 120/73 (89) 100 07/30/20 21:00 23 113/73 Mechanical Ventilator 45 07/30/20 20:30 107 23 125/79 (94) 100 07/30/20 20:00 45 07/30/20 20:00 109 07/30/20 20:00 33 126/74 Mechanical Ventilator 45 07/30/20 20:00 Mechanical Ventilator Mechanical Ventilator 07/30/20 20:00 99.4 112 34 127/69 (88) 90 07/30/20 19:30 112 41 55 07/30/20 19:30 114 33 120/77 (91) 84 07/30/20 19:00 27 114/60 Mechanical Ventilator 45 07/30/20 18:30 107 46 114/75 (88) 98 07/30/20 18:00 101 18 118/67 (84) 99 07/30/20 18:00 30 118/67 Mechanical Ventilator 45 07/30/20 17:30 106 41 111/65 (80) 95 07/30/20 17:00 33 111/65 40 07/30/20 17:00 104 36 111/68 (82) 92 07/30/20 16:00 106 07/30/20 16:00 45 07/30/20 16:00 98.8 104 32 106/68 (81) 100 07/30/20 16:00 33 106/68 Mechanical Ventilator 45 07/30/20 16:00 Mechanical Ventilator Mechanical Ventilator 07/30/20 15:30 107 36 78/41 (53) 98 07/30/20 15:15 107 29 92/64 (73) 99 07/30/20 15:00 107 27 89/56 (67) 100 07/30/20 15:00 105 42 45 07/30/20 15:00 31 92/64 Mechanical Ventilator 45 07/30/20 14:30 109 35 96/60 (72) 100 07/30/20 14:30 31 92/64 Mechanical Ventilator 45 07/30/20 14:00 33 91/58 Mechanical Ventilator 45 07/30/20 14:00 33 91/58 Mechanical Ventilator 45 07/30/20 14:00 114 31 91/58 (69) 100 07/30/20 13:30 115 30 96/54 (68) 100 07/30/20 13:00 115 33 104/59 (74) 99 07/30/20 13:00 28 104/59 Mechanical Ventilator 45 07/30/20 13:00 28 104/59 Mechanical Ventilator 45 07/30/20 12:15 113 28 104/58 (73) 100 07/30/20 12:00 113 07/30/20 12:00 45 07/30/20 12:00 28 104/58 Mechanical Ventilator 45 07/30/20 12:00 32 104/58 Mechanical Ventilator 45 07/30/20 12:00 98.7 115 25 93/56 (68) 99 07/30/20 12:00 Mechanical Ventilator Mechanical Ventilator 07/30/20 11:45 114 35 96/52 (67) 97 07/30/20 11:30 117 35 85/55 (65) 96 07/30/20 11:19 100 31 55 07/30/20 11:00 116 32 94/53 (67) 100 07/30/20 11:00 32 94/53 Mechanical Ventilator 45 07/30/20 11:00 32 94/53 Mechanical Ventilator 45 07/30/20 11:00 117 28 98/47 (64) 96 07/30/20 10:30 117 30 96/56 (69) 100 07/30/20 10:00 28 104/56 Mechanical Ventilator 55 07/30/20 10:00 28 104/56 Mechanical Ventilator 55 07/30/20 10:00 115 28 104/56 (72) 100 07/30/20 09:30 115 30 103/58 (73) 100 07/30/20 09:00 115 30 115/66 (82) 100 07/30/20 09:00 36 115/56 Mechanical Ventilator 55 07/30/20 09:00 36 115/66 Mechanical Ventilator 55 07/30/20 08:30 114 36 114/63 (80) 99 Intake and Output 07/30/20 07/31/20 19:00 07:00 Intake Total 1040 ml 1246.25 ml Output Total 578 ml 720 ml Balance 462 ml 526.25 ml Free Water 40 ml 70 ml IV Total 760 ml 731.25 ml Tube Feeding 240 ml 445 ml Output Urine Total 560 ml 710 ml Chest Tube Drainage Total 18 ml 10 ml # Bowel Movements 1 Laboratory Tests Test 07/31/20 03:35 White Blood Count 23.8 K/UL (4.8-10.8) #*H Red Blood Count 3.06 M/UL (4.20-5.40) L Hemoglobin 8.8 G/DL (12.0-16.0) L Hematocrit 29.3 % (37.0-47.0) L Mean Corpuscular Volume 96 FL (80-99) Mean Corpuscular Hemoglobin 28.8 PG (27.0-31.0) Mean Corpuscular Hemoglobin Concent 30.1 G/DL (32.0-36.0) L Red Cell Distribution Width 18.2 % (11.6-14.8) H Platelet Count 345 K/UL (150-450) Mean Platelet Volume 7.2 FL (6.5-10.1) Neutrophils (%) (Auto) % (45.0-75.0) Lymphocytes (%) (Auto) % (20.0-45.0) Monocytes (%) (Auto) % (1.0-10.0) Eosinophils (%) (Auto) % (0.0-3.0) Basophils (%) (Auto) % (0.0-2.0) Neutrophils % (Manual) Pending Lymphocytes % (Manual) Pending Platelet Estimate Pending Platelet Morphology Pending Sodium Level 142 MMOL/L (136-145) Potassium Level 4.4 MMOL/L (3.5-5.1) Chloride Level 100 MMOL/L (98-107) Carbon Dioxide Level 39 MMOL/L (21-32) H Anion Gap 3 mmol/L (5-15) L Blood Urea Nitrogen 5 mg/dL (7-18) L Creatinine 0.4 MG/DL (0.55-1.30) L Estimat Glomerular Filtration Rate > 60 mL/min (>60) Glucose Level 172 MG/DL (74-106) H Calcium Level 8.3 MG/DL (8.5-10.1) L Total Bilirubin 0.7 MG/DL (0.2-1.0) Aspartate Amino Transf (AST/SGOT) 25 U/L (15-37) Alanine Aminotransferase (ALT/SGPT) 13 U/L (12-78) Alkaline Phosphatase 82 U/L (46-116) Total Protein 7.0 G/DL (6.4-8.2) Albumin 2.4 G/DL (3.4-5.0) L Globulin 4.6 g/dL Albumin/Globulin Ratio 0.5 (1.0-2.7) L Objective HEAD AND NECK: Status post tracheostomy LUNGS: Coarse rhonchi. Right ThoraVent in place CARDIOVASCULAR: Regular S1 and S2 with no gallop. ABDOMEN: Soft.S/P PEG EXTREMITIES: 1+ pitting edema. Hill Burger MD Jul 31, 2020 08:31
[2020-07-31] MEDS: Docusate 100mg/10ml Liq NG SCH ×2 (08:40→18:07)
[2020-07-31] MEDS: Enoxaparin 120 mg inj SUBQ SCH ×2 (08:42→20:18)
--- NOTE | 2020-07-31 09:08 | General Progress Note ---
Subjective Constitutional: Reports: weakness Allergies: Coded Allergies: No Known Allergies (Unverified , 05/28/20) All Systems: reviewed and negative except above Subjective trach vent in icu Objective Last 24 Hour Vital Signs Date Time Temp Pulse Resp B/P (MAP) Pulse Ox O2 Delivery O2 Flow Rate FiO2 07/31/20 08:00 109 07/31/20 07:09 104 17 80 07/31/20 07:00 111 21 119/73 (88) 99 07/31/20 06:30 98.0 113 44 138/80 (99) 94 07/31/20 06:00 31 129/77 Mechanical Ventilator 45 07/31/20 06:00 110 31 126/79 (95) 98 07/31/20 05:30 122 34 124/67 (86) 97 07/31/20 05:00 29 121/66 Mechanical Ventilator 45 07/31/20 05:00 99.0 120 28 119/66 (83) 97 07/31/20 04:30 128 33 131/76 (94) 99 07/31/20 04:00 126 07/31/20 04:00 Mechanical Ventilator Mechanical Ventilator 07/31/20 04:00 101.0 133 40 141/64 (89) 87 07/31/20 04:00 50 07/31/20 04:00 24 125/84 Mechanical Ventilator 50 07/31/20 03:30 128 44 121/90 (100) 89 07/31/20 03:14 120 47 50 07/31/20 03:00 42 117/96 Mechanical Ventilator 60 07/31/20 03:00 122 47 149/97 (114) 88 07/31/20 02:30 113 38 117/78 (91) 98 07/31/20 02:00 111 43 120/80 (93) 98 07/31/20 02:00 42 117/96 Mechanical Ventilator 70 07/31/20 01:45 110 42 113/76 (88) 99 07/31/20 01:45 45 140/63 Mechanical Ventilator 60 07/31/20 01:30 109 42 109/73 (85) 99 07/31/20 01:30 45 140/62 Mechanical Ventilator 60 07/31/20 01:15 43 120/65 Mechanical Ventilator 60 07/31/20 01:00 108 38 113/68 (83) 98 07/31/20 01:00 43 110/65 Mechanical Ventilator 50 07/31/20 00:30 108 101/60 (74) 07/31/20 00:00 126 07/31/20 00:00 99.4 104 25 100/59 (73) 100 07/31/20 00:00 Mechanical Ventilator Mechanical Ventilator 07/31/20 00:00 43 110/65 Mechanical Ventilator 50 07/31/20 00:00 45 07/30/20 23:30 104 29 102/62 (75) 100 07/30/20 23:27 104 24 55 07/30/20 23:00 105 28 111/57 (75) 100 07/30/20 23:00 27 105/65 Mechanical Ventilator 45 07/30/20 22:45 107 21 105/64 (78) 100 07/30/20 22:30 107 23 101/78 (86) 100 07/30/20 22:15 109 27 100/68 (79) 99 07/30/20 22:00 110 19 101/66 (78) 99 07/30/20 22:00 27 100/68 Mechanical Ventilator 45 07/30/20 21:45 110 34 106/63 (77) 100 07/30/20 21:30 110 39 104/63 (77) 100 07/30/20 21:00 106 24 120/73 (89) 100 07/30/20 21:00 23 113/73 Mechanical Ventilator 45 07/30/20 20:30 107 23 125/79 (94) 100 07/30/20 20:00 45 07/30/20 20:00 109 07/30/20 20:00 33 126/74 Mechanical Ventilator 45 07/30/20 20:00 Mechanical Ventilator Mechanical Ventilator 07/30/20 20:00 99.4 112 34 127/69 (88) 90 07/30/20 19:30 112 41 55 07/30/20 19:30 114 33 120/77 (91) 84 07/30/20 19:00 27 114/60 Mechanical Ventilator 45 07/30/20 18:30 107 46 114/75 (88) 98 07/30/20 18:00 101 18 118/67 (84) 99 07/30/20 18:00 30 118/67 Mechanical Ventilator 45 07/30/20 17:30 106 41 111/65 (80) 95 07/30/20 17:00 33 111/65 40 07/30/20 17:00 104 36 111/68 (82) 92 07/30/20 16:00 106 07/30/20 16:00 45 07/30/20 16:00 98.8 104 32 106/68 (81) 100 07/30/20 16:00 33 106/68 Mechanical Ventilator 45 07/30/20 16:00 Mechanical Ventilator Mechanical Ventilator 07/30/20 15:30 107 36 78/41 (53) 98 07/30/20 15:15 107 29 92/64 (73) 99 07/30/20 15:00 107 27 89/56 (67) 100 07/30/20 15:00 105 42 45 07/30/20 15:00 31 92/64 Mechanical Ventilator 45 07/30/20 14:30 109 35 96/60 (72) 100 07/30/20 14:30 31 92/64 Mechanical Ventilator 45 07/30/20 14:00 33 91/58 Mechanical Ventilator 45 07/30/20 14:00 33 91/58 Mechanical Ventilator 45 07/30/20 14:00 114 31 91/58 (69) 100 07/30/20 13:30 115 30 96/54 (68) 100 07/30/20 13:00 115 33 104/59 (74) 99 07/30/20 13:00 28 104/59 Mechanical Ventilator 45 07/30/20 13:00 28 104/59 Mechanical Ventilator 45 07/30/20 12:15 113 28 104/58 (73) 100 07/30/20 12:00 113 07/30/20 12:00 45 07/30/20 12:00 28 104/58 Mechanical Ventilator 45 07/30/20 12:00 32 104/58 Mechanical Ventilator 45 07/30/20 12:00 98.7 115 25 93/56 (68) 99 07/30/20 12:00 Mechanical Ventilator Mechanical Ventilator 07/30/20 11:45 114 35 96/52 (67) 97 07/30/20 11:30 117 35 85/55 (65) 96 07/30/20 11:19 100 31 55 07/30/20 11:00 116 32 94/53 (67) 100 07/30/20 11:00 32 94/53 Mechanical Ventilator 45 07/30/20 11:00 32 94/53 Mechanical Ventilator 45 07/30/20 11:00 117 28 98/47 (64) 96 07/30/20 10:30 117 30 96/56 (69) 100 07/30/20 10:00 28 104/56 Mechanical Ventilator 55 07/30/20 10:00 28 104/56 Mechanical Ventilator 55 07/30/20 10:00 115 28 104/56 (72) 100 07/30/20 09:30 115 30 103/58 (73) 100 Intake and Output 07/30/20 07/31/20 19:00 07:00 Intake Total 1040 ml 1246.25 ml Output Total 578 ml 720 ml Balance 462 ml 526.25 ml Free Water 40 ml 70 ml IV Total 760 ml 731.25 ml Tube Feeding 240 ml 445 ml Output Urine Total 560 ml 710 ml Chest Tube Drainage Total 18 ml 10 ml # Bowel Movements 1 Laboratory Tests 07/31/20 03:35: White Blood Count 23.8#*H, Red Blood Count 3.06L, Hemoglobin 8.8L, Hematocrit 29.3L, Mean Corpuscular Volume 96, Mean Corpuscular Hemoglobin 28.8, Mean Corpuscular Hemoglobin Concent 30.1L, Red Cell Distribution Width 18.2H, Platelet Count 345, Mean Platelet Volume 7.2, Neutrophils (%) (Auto) , Lymphocytes (%) (Auto) , Monocytes (%) (Auto) , Eosinophils (%) (Auto) , Basophils (%) (Auto) , Differential Total Cells Counted 100, Neutrophils % (Manual) 80H, Lymphocytes % (Manual) 11L, Monocytes % (Manual) 7, Eosinophils % (Manual) 2, Basophils % (Manual) 0, Band Neutrophils 0, Platelet Estimate Adequate, Platelet Morphology Normal, Hypochromasia 1+, Anisocytosis 1+, Sodium Level 142, Potassium Level 4.4, Chloride Level 100, Carbon Dioxide Level 39H, Anion Gap 3L, Blood Urea Nitrogen 5L, Creatinine 0.4L, Estimat Glomerular Filtration Rate > 60, Glucose Level 172H, Calcium Level 8.3L, Total Bilirubin 0.7, Aspartate Amino Transf (AST/SGOT) 25, Alanine Aminotransferase (ALT/SGPT) 13, Alkaline Phosphatase 82, Total Protein 7.0, Albumin 2.4L, Globulin 4.6, Albumin/Globulin Ratio 0.5L Height (Feet): 5 Height (Inches): 5.00 Weight (Pounds): 223 General Appearance: lethargic EENT: normal ENT inspection Neck: normal alignment Cardiovascular: normal peripheral pulses, normal rate, regular rhythm Respiratory/Chest: chest wall non-tender, lungs clear, normal breath sounds Abdomen: normal bowel sounds, non tender, soft Extremities: normal inspection Edema: no edema noted Arm (L), no edema noted Arm (R), no edema noted Leg (L), no edema noted Leg (R), no edema noted Pedal (L), no edema noted Pedal (R), no edema noted Generalized Neurologic: motor weakness Skin: normal pigmentation, warm/dry Assessment/Plan Problem List: (1) Hypoxia ICD Codes: R09.02 - Hypoxemia SNOMED: 473450749 (2) Respiratory failure ICD Codes: J96.90 - Respiratory failure, unspecified, unspecified whether with hypoxia or hypercapnia SNOMED: 244624222 (3) Respiratory distress ICD Codes: R06.03 - Acute respiratory distress; J12.82 - Pneumonia due to coronavirus disease 2019 SNOMED: 962525362 (4) Pneumonia due to COVID-19 virus ICD Codes: U07.1 - COVID-19; J12.82 - Pneumonia due to coronavirus disease 2019 SNOMED: 480907846774554805 Status: unchanged Assessment/Plan: vent abx id pulm f/u cbc bmp am ltach Tank Cheng DO Jul 31, 2020 09:08
--- NOTE | 2020-07-31 09:59 | General Progress Note ---
Subjective ROS Limited/Unobtainable: No Allergies: Coded Allergies: No Known Allergies (Unverified , 05/28/20) Subjective vomited again had BM no GT residuals Objective Last 24 Hour Vital Signs Date Time Temp Pulse Resp B/P (MAP) Pulse Ox O2 Delivery O2 Flow Rate FiO2 07/31/20 09:30 108 25 124/66 (85) 100 07/31/20 09:00 109 26 113/83 (93) 100 07/31/20 08:30 110 26 126/74 (91) 100 07/31/20 08:00 97.5 106 16 123/74 (90) 99 07/31/20 08:00 100 07/31/20 08:00 109 07/31/20 07:30 110 23 119/73 (88) 99 07/31/20 07:09 104 17 80 07/31/20 07:00 111 21 119/73 (88) 99 07/31/20 06:30 98.0 113 44 138/80 (99) 94 07/31/20 06:00 31 129/77 Mechanical Ventilator 45 07/31/20 06:00 110 31 126/79 (95) 98 07/31/20 05:30 122 34 124/67 (86) 97 07/31/20 05:00 29 121/66 Mechanical Ventilator 45 07/31/20 05:00 99.0 120 28 119/66 (83) 97 07/31/20 04:30 128 33 131/76 (94) 99 07/31/20 04:00 126 07/31/20 04:00 Mechanical Ventilator Mechanical Ventilator 07/31/20 04:00 101.0 133 40 141/64 (89) 87 07/31/20 04:00 50 07/31/20 04:00 24 125/84 Mechanical Ventilator 50 07/31/20 03:30 128 44 121/90 (100) 89 07/31/20 03:14 120 47 50 07/31/20 03:00 42 117/96 Mechanical Ventilator 60 07/31/20 03:00 122 47 149/97 (114) 88 07/31/20 02:30 113 38 117/78 (91) 98 07/31/20 02:00 111 43 120/80 (93) 98 07/31/20 02:00 42 117/96 Mechanical Ventilator 70 07/31/20 01:45 110 42 113/76 (88) 99 07/31/20 01:45 45 140/63 Mechanical Ventilator 60 07/31/20 01:30 109 42 109/73 (85) 99 07/31/20 01:30 45 140/62 Mechanical Ventilator 60 07/31/20 01:15 43 120/65 Mechanical Ventilator 60 07/31/20 01:00 108 38 113/68 (83) 98 07/31/20 01:00 43 110/65 Mechanical Ventilator 50 07/31/20 00:30 108 101/60 (74) 07/31/20 00:00 126 07/31/20 00:00 99.4 104 25 100/59 (73) 100 07/31/20 00:00 Mechanical Ventilator Mechanical Ventilator 07/31/20 00:00 43 110/65 Mechanical Ventilator 50 07/31/20 00:00 45 07/30/20 23:30 104 29 102/62 (75) 100 07/30/20 23:27 104 24 55 07/30/20 23:00 105 28 111/57 (75) 100 07/30/20 23:00 27 105/65 Mechanical Ventilator 45 07/30/20 22:45 107 21 105/64 (78) 100 07/30/20 22:30 107 23 101/78 (86) 100 07/30/20 22:15 109 27 100/68 (79) 99 07/30/20 22:00 110 19 101/66 (78) 99 07/30/20 22:00 27 100/68 Mechanical Ventilator 45 07/30/20 21:45 110 34 106/63 (77) 100 07/30/20 21:30 110 39 104/63 (77) 100 07/30/20 21:00 106 24 120/73 (89) 100 07/30/20 21:00 23 113/73 Mechanical Ventilator 45 07/30/20 20:30 107 23 125/79 (94) 100 07/30/20 20:00 45 07/30/20 20:00 109 07/30/20 20:00 33 126/74 Mechanical Ventilator 45 07/30/20 20:00 Mechanical Ventilator Mechanical Ventilator 07/30/20 20:00 99.4 112 34 127/69 (88) 90 07/30/20 19:30 112 41 55 07/30/20 19:30 114 33 120/77 (91) 84 07/30/20 19:00 27 114/60 Mechanical Ventilator 45 07/30/20 18:30 107 46 114/75 (88) 98 07/30/20 18:00 101 18 118/67 (84) 99 07/30/20 18:00 30 118/67 Mechanical Ventilator 45 07/30/20 17:30 106 41 111/65 (80) 95 07/30/20 17:00 33 111/65 40 07/30/20 17:00 104 36 111/68 (82) 92 07/30/20 16:00 106 07/30/20 16:00 45 07/30/20 16:00 98.8 104 32 106/68 (81) 100 07/30/20 16:00 33 106/68 Mechanical Ventilator 45 07/30/20 16:00 Mechanical Ventilator Mechanical Ventilator 07/30/20 15:30 107 36 78/41 (53) 98 07/30/20 15:15 107 29 92/64 (73) 99 07/30/20 15:00 107 27 89/56 (67) 100 07/30/20 15:00 105 42 45 07/30/20 15:00 31 92/64 Mechanical Ventilator 45 07/30/20 14:30 109 35 96/60 (72) 100 07/30/20 14:30 31 92/64 Mechanical Ventilator 45 07/30/20 14:00 33 91/58 Mechanical Ventilator 45 07/30/20 14:00 33 91/58 Mechanical Ventilator 45 07/30/20 14:00 114 31 91/58 (69) 100 07/30/20 13:30 115 30 96/54 (68) 100 07/30/20 13:00 115 33 104/59 (74) 99 07/30/20 13:00 28 104/59 Mechanical Ventilator 45 07/30/20 13:00 28 104/59 Mechanical Ventilator 45 07/30/20 12:15 113 28 104/58 (73) 100 07/30/20 12:00 113 07/30/20 12:00 45 07/30/20 12:00 28 104/58 Mechanical Ventilator 45 07/30/20 12:00 32 104/58 Mechanical Ventilator 45 07/30/20 12:00 98.7 115 25 93/56 (68) 99 07/30/20 12:00 Mechanical Ventilator Mechanical Ventilator 07/30/20 11:45 114 35 96/52 (67) 97 07/30/20 11:30 117 35 85/55 (65) 96 07/30/20 11:19 100 31 55 07/30/20 11:00 116 32 94/53 (67) 100 07/30/20 11:00 32 94/53 Mechanical Ventilator 45 07/30/20 11:00 32 94/53 Mechanical Ventilator 45 07/30/20 11:00 117 28 98/47 (64) 96 07/30/20 10:30 117 30 96/56 (69) 100 07/30/20 10:00 28 104/56 Mechanical Ventilator 55 07/30/20 10:00 28 104/56 Mechanical Ventilator 55 07/30/20 10:00 115 28 104/56 (72) 100 Intake and Output 07/30/20 07/31/20 19:00 07:00 Intake Total 1040 ml 1246.25 ml Output Total 578 ml 720 ml Balance 462 ml 526.25 ml Free Water 40 ml 70 ml IV Total 760 ml 731.25 ml Tube Feeding 240 ml 445 ml Output Urine Total 560 ml 710 ml Chest Tube Drainage Total 18 ml 10 ml # Bowel Movements 1 Laboratory Tests 07/31/20 03:35: White Blood Count 23.8#*H, Red Blood Count 3.06L, Hemoglobin 8.8L, Hematocrit 29.3L, Mean Corpuscular Volume 96, Mean Corpuscular Hemoglobin 28.8, Mean Corpuscular Hemoglobin Concent 30.1L, Red Cell Distribution Width 18.2H, Platelet Count 345, Mean Platelet Volume 7.2, Neutrophils (%) (Auto) , Lymphocytes (%) (Auto) , Monocytes (%) (Auto) , Eosinophils (%) (Auto) , Basophils (%) (Auto) , Differential Total Cells Counted 100, Neutrophils % (Manual) 80H, Lymphocytes % (Manual) 11L, Monocytes % (Manual) 7, Eosinophils % (Manual) 2, Basophils % (Manual) 0, Band Neutrophils 0, Platelet Estimate A dequate, Platelet Morphology Normal, Hypochromasia 1+, Anisocytosis 1+, Sodium Level 142, Potassium Level 4.4, Chloride Level 100, Carbon Dioxide Level 39H, Anion Gap 3L, Blood Urea Nitrogen 5L, Creatinine 0.4L, Estimat Glomerular Filtration Rate > 60, Glucose Level 172H, Calcium Level 8.3L, Total Bilirubin 0.7, Aspartate Amino Transf (AST/SGOT) 25, Alanine Aminotransferase (ALT/SGPT) 13, Alkaline Phosphatase 82, Total Protein 7.0, Albumin 2.4L, Globulin 4.6, Albumin/Globulin Ratio 0.5L Height (Feet): 5 Height (Inches): 5.00 Weight (Pounds): 223 General Appearance: no apparent distress EENT: normal ENT inspection Neck: supple Cardiovascular: tachycardia Respiratory/Chest: decreased breath sounds Abdomen: hypoactive bowel sounds Extremities: non-tender Assessment/Plan Problem List: (1) Morbid obesity ICD Codes: E66.01 - Morbid (severe) obesity due to excess calories SNOMED: 776857626 (2) DEVENDRA (acute kidney injury) ICD Codes: N17.9 - Acute kidney failure, unspecified SNOMED: 1952503, 41199309 (3) Diabetes mellitus out of control ICD Codes: E11.65 - Type 2 diabetes mellitus with hyperglycemia SNOMED: 13017992, 594270100 (4) Pneumonia due to COVID-19 virus ICD Codes: U07.1 - COVID-19; J12.82 - Pneumonia due to coronavirus disease 2019 SNOMED: 750635981413863387 (5) Hypoxia ICD Codes: R09.02 - Hypoxemia SNOMED: 580546838 (6) Respiratory failure ICD Codes: J96.90 - Respiratory failure, unspecified, unspecified whether with hypoxia or hypercapnia SNOMED: 628006947 Status: unchanged Assessment/Plan: s/p PEG GTF colace miralax add zofran will Ryan Dubose MD Jul 31, 2020 09:59
--- NOTE | 2020-07-31 10:11 | NUR ---
0720: Received report from previous RN. Pt awake in bed. Pt remains on fentanyl drip. Pt with R chest tube. Will continue to monitor. 0755: Chest X-ray performed. Pt with emesis occurrence. Tube feeding rate decreased. 0930: Spoke with keira De Los Santos to d/c fluids if pt is not on pressors and being fed through G tube. 1000: Verbal order from Dr. Strong to start Zofran IVP Q8. 1020: Pt remains on trach to vent. Pt awake and occasionally coughs. Pt has been maintaining O2 saturations on 80% FiO2. Pt remains with marrero. R chest tube intact. Will continue to follow.
--- NOTE | 2020-07-31 11:36 | Infectious Diseases Prog Note ---
Assessment/Plan Assessment/Plan antibiotics : meropenem A 1. covid 19 pneumonia s/p remdesivir s/p solumedrol 2. respiratory failure s/p tracheostomy 3. pseudomonas pneumonia 4. leucocytosis increased 5. SBO 6, pneumothorax s/p CT placement P 1. continue meropenem 2. blood culture 3. UA and urine culture 4. sputum culture 5. stool for c.diff 6. start iv vancomycin 7. will follow up cultures Subjective ROS Limited/Unobtainable: Yes Allergies: Coded Allergies: No Known Allergies (Unverified , 05/28/20) Objective Last 24 Hour Vital Signs Date Time Temp Pulse Resp B/P (MAP) Pulse Ox O2 Delivery O2 Flow Rate FiO2 07/31/20 11:14 115 32 70 07/31/20 11:00 113 27 134/79 (97) 100 07/31/20 11:00 33 134/79 Mechanical Ventilator 80 07/31/20 10:30 112 28 125/73 (90) 100 07/31/20 10:00 114 29 120/69 (86) 100 07/31/20 10:00 29 120/69 Mechanical Ventilator 80 07/31/20 09:30 108 25 124/66 (85) 100 07/31/20 09:00 109 26 113/83 (93) 100 07/31/20 09:00 26 113/83 Mechanical Ventilator 80 07/31/20 08:30 110 26 126/74 (91) 100 07/31/20 08:00 97.5 106 16 123/74 (90) 99 07/31/20 08:00 16 123/74 Mechanical Ventilator 80 07/31/20 08:00 Mechanical Ventilator Mechanical Ventilator 07/31/20 08:00 100 07/31/20 08:00 109 07/31/20 07:30 110 23 119/73 (88) 99 07/31/20 07:09 104 17 80 07/31/20 07:00 111 21 119/73 (88) 99 07/31/20 07:00 21 119/78 Mechanical Ventilator 100 07/31/20 06:30 98.0 113 44 138/80 (99) 94 07/31/20 06:00 31 129/77 Mechanical Ventilator 45 07/31/20 06:00 110 31 126/79 (95) 98 07/31/20 05:30 122 34 124/67 (86) 97 07/31/20 05:00 29 121/66 Mechanical Ventilator 45 07/31/20 05:00 99.0 120 28 119/66 (83) 97 07/31/20 04:30 128 33 131/76 (94) 99 07/31/20 04:00 126 07/31/20 04:00 Mechanical Ventilator Mechanical Ventilator 07/31/20 04:00 101.0 133 40 141/64 (89) 87 07/31/20 04:00 50 07/31/20 04:00 24 125/84 Mechanical Ventilator 50 07/31/20 03:30 128 44 121/90 (100) 89 07/31/20 03:14 120 47 50 07/31/20 03:00 42 117/96 Mechanical Ventilator 60 07/31/20 03:00 122 47 149/97 (114) 88 07/31/20 02:30 113 38 117/78 (91) 98 07/31/20 02:00 111 43 120/80 (93) 98 07/31/20 02:00 42 117/96 Mechanical Ventilator 70 07/31/20 01:45 110 42 113/76 (88) 99 07/31/20 01:45 45 140/63 Mechanical Ventilator 60 07/31/20 01:30 109 42 109/73 (85) 99 07/31/20 01:30 45 140/62 Mechanical Ventilator 60 07/31/20 01:15 43 120/65 Mechanical Ventilator 60 07/31/20 01:00 108 38 113/68 (83) 98 07/31/20 01:00 43 110/65 Mechanical Ventilator 50 07/31/20 00:30 108 101/60 (74) 07/31/20 00:00 126 07/31/20 00:00 99.4 104 25 100/59 (73) 100 07/31/20 00:00 Mechanical Ventilator Mechanical Ventilator 07/31/20 00:00 43 110/65 Mechanical Ventilator 50 07/31/20 00:00 45 07/30/20 23:30 104 29 102/62 (75) 100 07/30/20 23:27 104 24 55 07/30/20 23:00 105 28 111/57 (75) 100 07/30/20 23:00 27 105/65 Mechanical Ventilator 45 07/30/20 22:45 107 21 105/64 (78) 100 07/30/20 22:30 107 23 101/78 (86) 100 07/30/20 22:15 109 27 100/68 (79) 99 07/30/20 22:00 110 19 101/66 (78) 99 07/30/20 22:00 27 100/68 Mechanical Ventilator 45 07/30/20 21:45 110 34 106/63 (77) 100 07/30/20 21:30 110 39 104/63 (77) 100 07/30/20 21:00 106 24 120/73 (89) 100 07/30/20 21:00 23 113/73 Mechanical Ventilator 45 07/30/20 20:30 107 23 125/79 (94) 100 07/30/20 20:00 45 07/30/20 20:00 109 07/30/20 20:00 33 126/74 Mechanical Ventilator 45 07/30/20 20:00 Mechanical Ventilator Mechanical Ventilator 07/30/20 20:00 99.4 112 34 127/69 (88) 90 07/30/20 19:30 112 41 55 07/30/20 19:30 114 33 120/77 (91) 84 07/30/20 19:00 27 114/60 Mechanical Ventilator 45 07/30/20 18:30 107 46 114/75 (88) 98 07/30/20 18:00 101 18 118/67 (84) 99 07/30/20 18:00 30 118/67 Mechanical Ventilator 45 07/30/20 17:30 106 41 111/65 (80) 95 07/30/20 17:00 33 111/65 40 07/30/20 17:00 104 36 111/68 (82) 92 07/30/20 16:00 106 07/30/20 16:00 45 07/30/20 16:00 98.8 104 32 106/68 (81) 100 07/30/20 16:00 33 106/68 Mechanical Ventilator 45 07/30/20 16:00 Mechanical Ventilator Mechanical Ventilator 07/30/20 15:30 107 36 78/41 (53) 98 07/30/20 15:15 107 29 92/64 (73) 99 07/30/20 15:00 107 27 89/56 (67) 100 07/30/20 15:00 105 42 45 07/30/20 15:00 31 92/64 Mechanical Ventilator 45 07/30/20 14:30 109 35 96/60 (72) 100 07/30/20 14:30 31 92/64 Mechanical Ventilator 45 07/30/20 14:00 33 91/58 Mechanical Ventilator 45 07/30/20 14:00 33 91/58 Mechanical Ventilator 45 07/30/20 14:00 114 31 91/58 (69) 100 07/30/20 13:30 115 30 96/54 (68) 100 07/30/20 13:00 115 33 104/59 (74) 99 07/30/20 13:00 28 104/59 Mechanical Ventilator 45 07/30/20 13:00 28 104/59 Mechanical Ventilator 45 07/30/20 12:15 113 28 104/58 (73) 100 07/30/20 12:00 113 07/30/20 12:00 45 07/30/20 12:00 28 104/58 Mechanical Ventilator 45 07/30/20 12:00 32 104/58 Mechanical Ventilator 45 07/30/20 12:00 98.7 115 25 93/56 (68) 99 07/30/20 12:00 Mechanical Ventilator Mechanical Ventilator 07/30/20 11:45 114 35 96/52 (67) 97 Height (Feet): 5 Height (Inches): 5.00 Weight (Pounds): 223 HEENT: status post trach Respiratory/Chest: lungs clear Cardiovascular: normal rate, regular rhythm, no gallop/murmur Abdomen: soft, non tender Extremities: other - + edema Laboratory Tests Test 07/31/20 03:35 White Blood Count 23.8 K/UL (4.8-10.8) #*H Red Blood Count 3.06 M/UL (4.20-5.40) L Hemoglobin 8.8 G/DL (12.0-16.0) L Hematocrit 29.3 % (37.0-47.0) L Mean Corpuscular Volume 96 FL (80-99) Mean Corpuscular Hemoglobin 28.8 PG (27.0-31.0) Mean Corpuscular Hemoglobin Concent 30.1 G/DL (32.0-36.0) L Red Cell Distribution Width 18.2 % (11.6-14.8) H Platelet Count 345 K/UL (150-450) Mean Platelet Volume 7.2 FL (6.5-10.1) Neutrophils (%) (Auto) % (45.0-75.0) Lymphocytes (%) (Auto) % (20.0-45.0) Monocytes (%) (Auto) % (1.0-10.0) Eosinophils (%) (Auto) % (0.0-3.0) Basophils (%) (Auto) % (0.0-2.0) Differential Total Cells Counted 100 Neutrophils % (Manual) 80 % (45-75) H Lymphocytes % (Manual) 11 % (20-45) L Monocytes % (Manual) 7 % (1-10) Eosinophils % (Manual) 2 % (0-3) Basophils % (Manual) 0 % (0-2) Band Neutrophils 0 % (0-8) Platelet Estimate Adequate Platelet Morphology Normal Hypochromasia 1+ Anisocytosis 1+ Sodium Level 142 MMOL/L (136-145) Potassium Level 4.4 MMOL/L (3.5-5.1) Chloride Level 100 MMOL/L (98-107) Carbon Dioxide Level 39 MMOL/L (21-32) H Anion Gap 3 mmol/L (5-15) L Blood Urea Nitrogen 5 mg/dL (7-18) L Creatinine 0.4 MG/DL (0.55-1.30) L Estimat Glomerular Filtration Rate > 60 mL/min (>60) Glucose Level 172 MG/DL (74-106) H Calcium Level 8.3 MG/DL (8.5-10.1) L Total Bilirubin 0.7 MG/DL (0.2-1.0) Aspartate Amino Transf (AST/SGOT) 25 U/L (15-37) Alanine Aminotransferase (ALT/SGPT) 13 U/L (12-78) Alkaline Phosphatase 82 U/L (46-116) Total Protein 7.0 G/DL (6.4-8.2) Albumin 2.4 G/DL (3.4-5.0) L Globulin 4.6 g/dL Albumin/Globulin Ratio 0.5 (1.0-2.7) L Current Medications Medications (Trade) Dose Ordered Sig/Zelda Route PRN Reason Start Time Stop Time Status Last Admin Dose Admin Acetaminophen (Tylenol) 650 mg Q4H PRN NG Temp >100.5 07/27/20 03:45 08/26/20 03:44 07/29/20 20:24 Calcitonin [place] (Miacalcin) 1 sprays DAILY NASAL 07/22/20 14:00 10/20/20 13:59 07/31/20 08:40 Chlorhexidine Gluconate (Inna-Hex 2%) 1 applic DAILY@2000 TOPIC 07/20/20 20:00 10/18/20 19:59 07/30/20 20:12 Dextrose (Dextrose 50%) 25 ml Q30M PRN IV Hypoglycemia 06/05/20 10:45 09/03/20 10:44 Dextrose (Dextrose 50%) 50 ml Q30M PRN IV Hypoglycemia 06/05/20 10:45 09/03/20 10:44 Docusate Sodium (Colace) 100 mg TWICE A DAY NG 07/26/20 18:00 08/25/20 17:59 07/31/20 08:40 Enoxaparin Sodium (Lovenox) 110 mg EVERY 12 HOURS SUBQ 07/17/20 21:00 10/15/20 20:59 07/31/20 08:42 Fentanyl Citrate 250 ml @ 0 mls/hr Q24H PRN IV . 07/31/20 12:00 08/02/20 11:59 Fentanyl Citrate 250 ml @ 1 mls/hr Q24H IV 07/29/20 17:00 07/31/20 12:00 07/30/20 17:00 Guaifenesin/ Codeine Phosphate (Robitussin with codeine) 5 ml Q6H PRN NG For Cough 07/14/20 14:15 08/13/20 14:14 07/18/20 21:44 Lansoprazole (Prevacid) 30 mg DAILY GT 07/18/20 09:00 08/09/20 08:59 07/31/20 08:40 Meropenem 1 gm/ Sodium Chloride 55 ml @ 110 mls/hr Q8H IVPB 07/22/20 12:00 08/02/20 11:59 07/31/20 04:17 Midazolam HCl 200 ml @ 0 mls/hr Q24H PRN IV SEDATION 07/29/20 14:15 08/05/20 14:14 07/30/20 00:37 Midodrine (Pro-Amatine) 10 mg Q8HR GT 06/30/20 14:00 09/12/20 13:59 07/31/20 05:37 Ondansetron HCl (Zofran) 4 mg EVERY 8 HOURS IVP 07/31/20 14:00 08/30/20 13:59 Polyethylene Glycol (Miralax) 17 gm BEDTIME ORAL 07/26/20 21:00 08/25/20 20:59 07/30/20 20:44 Quetiapine Fumarate (SEROqueL) 50 mg Q12HR GT 07/16/20 13:30 08/30/20 13:29 07/31/20 08:40 Fili Mcelroy MD Jul 31, 2020 11:36
--- NOTE | 2020-07-31 12:15 | Diagnostic Imaging Report ---
Indication: Pneumothorax, follow-up Technique: XRAY Chest 1v Comparison: 07/31/2019-1 Findings: Continued interval decrease of right-sided pneumothorax. Small bore chest tube/thoracic vent remains in place. Only tiny apical pneumothorax persists. Extensive bilateral infiltrates are unchanged. Tracheostomy tube is again noted. Heart size and osseous structures are stable. IMPRESSION: Continued interval decrease of right-sided pneumothorax with only trace pneumothorax persisting in the apex. Right-sided small bore chest tube/thoracic vent remains in place. Extensive bilateral infiltrates, similar to the prior exam.
--- NOTE | 2020-07-31 12:23 | Pulmonology Progress Note ---
Subjective ROS Limited/Unobtainable: Yes Interval Events: Chest tube removed (07/29), reinserted (07/30) Constitutional: Reports: fever, other - resolved HEENT: Repors: no symptoms Respiratory: Reports: no symptoms Cardiovascular: Reports: no symptoms Gastrointestinal/Abdominal: Reports: vomiting Genitourinary: Reports: no symptoms Allergies: Coded Allergies: No Known Allergies (Unverified , 05/28/20) All Systems: reviewed and negative except above Objective Last 24 Hour Vital Signs Date Time Temp Pulse Resp B/P (MAP) Pulse Ox O2 Delivery O2 Flow Rate FiO2 07/31/20 12:00 104 07/31/20 11:14 115 32 70 07/31/20 11:00 113 27 134/79 (97) 100 07/31/20 11:00 33 134/79 Mechanical Ventilator 80 07/31/20 10:30 112 28 125/73 (90) 100 07/31/20 10:00 114 29 120/69 (86) 100 07/31/20 10:00 29 120/69 Mechanical Ventilator 80 07/31/20 09:30 108 25 124/66 (85) 100 07/31/20 09:00 109 26 113/83 (93) 100 07/31/20 09:00 26 113/83 Mechanical Ventilator 80 07/31/20 08:30 110 26 126/74 (91) 100 07/31/20 08:00 97.5 106 16 123/74 (90) 99 07/31/20 08:00 16 123/74 Mechanical Ventilator 80 07/31/20 08:00 Mechanical Ventilator Mechanical Ventilator 07/31/20 08:00 100 07/31/20 08:00 109 07/31/20 07:30 110 23 119/73 (88) 99 07/31/20 07:09 104 17 80 07/31/20 07:00 111 21 119/73 (88) 99 07/31/20 07:00 21 119/78 Mechanical Ventilator 100 07/31/20 06:30 98.0 113 44 138/80 (99) 94 07/31/20 06:00 31 129/77 Mechanical Ventilator 45 07/31/20 06:00 110 31 126/79 (95) 98 07/31/20 05:30 122 34 124/67 (86) 97 07/31/20 05:00 29 121/66 Mechanical Ventilator 45 07/31/20 05:00 99.0 120 28 119/66 (83) 97 07/31/20 04:30 128 33 131/76 (94) 99 07/31/20 04:00 126 07/31/20 04:00 Mechanical Ventilator Mechanical Ventilator 07/31/20 04:00 101.0 133 40 141/64 (89) 87 07/31/20 04:00 50 07/31/20 04:00 24 125/84 Mechanical Ventilator 50 07/31/20 03:30 128 44 121/90 (100) 89 07/31/20 03:14 120 47 50 07/31/20 03:00 42 117/96 Mechanical Ventilator 60 07/31/20 03:00 122 47 149/97 (114) 88 07/31/20 02:30 113 38 117/78 (91) 98 07/31/20 02:00 111 43 120/80 (93) 98 07/31/20 02:00 42 117/96 Mechanical Ventilator 70 07/31/20 01:45 110 42 113/76 (88) 99 07/31/20 01:45 45 140/63 Mechanical Ventilator 60 07/31/20 01:30 109 42 109/73 (85) 99 07/31/20 01:30 45 140/62 Mechanical Ventilator 60 07/31/20 01:15 43 120/65 Mechanical Ventilator 60 07/31/20 01:00 108 38 113/68 (83) 98 07/31/20 01:00 43 110/65 Mechanical Ventilator 50 07/31/20 00:30 108 101/60 (74) 07/31/20 00:00 126 07/31/20 00:00 99.4 104 25 100/59 (73) 100 07/31/20 00:00 Mechanical Ventilator Mechanical Ventilator 07/31/20 00:00 43 110/65 Mechanical Ventilator 50 07/31/20 00:00 45 07/30/20 23:30 104 29 102/62 (75) 100 07/30/20 23:27 104 24 55 07/30/20 23:00 105 28 111/57 (75) 100 07/30/20 23:00 27 105/65 Mechanical Ventilator 45 07/30/20 22:45 107 21 105/64 (78) 100 07/30/20 22:30 107 23 101/78 (86) 100 07/30/20 22:15 109 27 100/68 (79) 99 07/30/20 22:00 110 19 101/66 (78) 99 07/30/20 22:00 27 100/68 Mechanical Ventilator 45 07/30/20 21:45 110 34 106/63 (77) 100 07/30/20 21:30 110 39 104/63 (77) 100 07/30/20 21:00 106 24 120/73 (89) 100 07/30/20 21:00 23 113/73 Mechanical Ventilator 45 07/30/20 20:30 107 23 125/79 (94) 100 07/30/20 20:00 45 07/30/20 20:00 109 07/30/20 20:00 33 126/74 Mechanical Ventilator 45 07/30/20 20:00 Mechanical Ventilator Mechanical Ventilator 07/30/20 20:00 99.4 112 34 127/69 (88) 90 07/30/20 19:30 112 41 55 07/30/20 19:30 114 33 120/77 (91) 84 07/30/20 19:00 27 114/60 Mechanical Ventilator 45 07/30/20 18:30 107 46 114/75 (88) 98 07/30/20 18:00 101 18 118/67 (84) 99 07/30/20 18:00 30 118/67 Mechanical Ventilator 45 07/30/20 17:30 106 41 111/65 (80) 95 07/30/20 17:00 33 111/65 40 07/30/20 17:00 104 36 111/68 (82) 92 07/30/20 16:00 106 07/30/20 16:00 45 07/30/20 16:00 98.8 104 32 106/68 (81) 100 07/30/20 16:00 33 106/68 Mechanical Ventilator 45 07/30/20 16:00 Mechanical Ventilator Mechanical Ventilator 07/30/20 15:30 107 36 78/41 (53) 98 07/30/20 15:15 107 29 92/64 (73) 99 07/30/20 15:00 107 27 89/56 (67) 100 07/30/20 15:00 105 42 45 07/30/20 15:00 31 92/64 Mechanical Ventilator 45 07/30/20 14:30 109 35 96/60 (72) 100 07/30/20 14:30 31 92/64 Mechanical Ventilator 45 07/30/20 14:00 33 91/58 Mechanical Ventilator 45 07/30/20 14:00 33 91/58 Mechanical Ventilator 45 07/30/20 14:00 114 31 91/58 (69) 100 07/30/20 13:30 115 30 96/54 (68) 100 07/30/20 13:00 115 33 104/59 (74) 99 07/30/20 13:00 28 104/59 Mechanical Ventilator 45 07/30/20 13:00 28 104/59 Mechanical Ventilator 45 Intake and Output 07/30/20 07/31/20 19:00 07:00 Intake Total 1040 ml 1311.25 ml Output Total 578 ml 720 ml Balance 462 ml 591.25 ml Free Water 40 ml 70 ml IV Total 760 ml 796.25 ml Tube Feeding 240 ml 445 ml Output Urine Total 560 ml 710 ml Chest Tube Drainage Total 18 ml 10 ml # Bowel Movements 1 General Appearance: no acute distress HEENT: normocephalic, status post trach Respiratory: chest wall non-tender Cardiovascular: normal peripheral pulses Abdomen: normal bowel sounds, other - s/p PEG Laboratory Tests 07/31/20 03:35: White Blood Count 23.8#*H, Red Blood Count 3.06L, Hemoglobin 8.8L, Hematocrit 29.3L, Mean Corpuscular Volume 96, Mean Corpuscular Hemoglobin 28.8, Mean Corpuscular Hemoglobin Concent 30.1L, Red Cell Distribution Width 18.2H, Platelet Count 345, Mean Platelet Volume 7.2, Neutrophils (%) (Auto) , Lymphocytes (%) (Auto) , Monocytes (%) (Auto) , Eosinophils (%) (Auto) , Basophils (%) (Auto) , Differential Total Cells Counted 100, Neutrophils % (Manual) 80H, Lymphocytes % (Manual) 11L, Monocytes % (Manual) 7, Eosinophils % (Manual) 2, Basophils % (Manual) 0, Band Neutrophils 0, Platelet Estimate Adequate, Platelet Morphology Normal, Hypochromasia 1+, Anisocytosis 1+, Sodium Level 142, Potassium Level 4.4, Chloride Level 100, Carbon Dioxide Level 39H, Anion Gap 3L, Blood Urea Nitrogen 5L, Creatinine 0.4L, Estimat Glomerular Filtration Rate > 60, Glucose Level 172H, Calcium Level 8.3L, Total Bilirubin 0.7, Aspartate Amino Transf (AST/SGOT) 25, Alanine Aminotransferase (ALT/SGPT) 13, Alkaline Phosphatase 82, Total Protein 7.0, Albumin 2.4L, Globulin 4.6, Al bumin/Globulin Ratio 0.5L Current Medications Medications (Trade) Dose Ordered Sig/Zelda Route PRN Reason Start Time Stop Time Status Last Admin Dose Admin Acetaminophen (Tylenol) 650 mg Q4H PRN NG Temp >100.5 07/27/20 03:45 08/26/20 03:44 07/29/20 20:24 Calcitonin [place] (Miacalcin) 1 sprays DAILY NASAL 07/22/20 14:00 10/20/20 13:59 07/31/20 08:40 Chlorhexidine Gluconate (Inna-Hex 2%) 1 applic DAILY@2000 TOPIC 07/20/20 20:00 10/18/20 19:59 07/30/20 20:12 Dextrose (Dextrose 50%) 25 ml Q30M PRN IV Hypoglycemia 06/05/20 10:45 09/03/20 10:44 Dextrose (Dextrose 50%) 50 ml Q30M PRN IV Hypoglycemia 06/05/20 10:45 09/03/20 10:44 Docusate Sodium (Colace) 100 mg TWICE A DAY NG 07/26/20 18:00 08/25/20 17:59 07/31/20 08:40 Enoxaparin Sodium (Lovenox) 110 mg EVERY 12 HOURS SUBQ 07/17/20 21:00 10/15/20 20:59 07/31/20 08:42 Fentanyl Citrate 250 ml @ 0 mls/hr Q24H PRN IV . 07/31/20 12:00 08/02/20 11:59 Guaifenesin/ Codeine Phosphate (Robitussin with codeine) 5 ml Q6H PRN NG For Cough 07/14/20 14:15 08/13/20 14:14 07/18/20 21:44 Lansoprazole (Prevacid) 30 mg DAILY GT 07/18/20 09:00 08/09/20 08:59 07/31/20 08:40 Meropenem 1 gm/ Sodium Chloride 55 ml @ 110 mls/hr Q8H IVPB 07/22/20 12:00 08/02/20 11:59 07/31/20 04:17 Midazolam HCl 200 ml @ 0 mls/hr Q24H PRN IV SEDATION 07/29/20 14:15 08/05/20 14:14 07/30/20 00:37 Midodrine (Pro-Amatine) 10 mg Q8HR GT 06/30/20 14:00 09/12/20 13:59 07/31/20 05:37 Ondansetron HCl (Zofran) 4 mg EVERY 8 HOURS IVP 07/31/20 14:00 08/30/20 13:59 Polyethylene Glycol (Miralax) 17 gm BEDTIME ORAL 07/26/20 21:00 08/25/20 20:59 07/30/20 20:44 Quetiapine Fumarate (SEROqueL) 50 mg Q12HR GT 07/16/20 13:30 08/30/20 13:29 07/31/20 08:40 Vancomycin HCl 250 ml @ 166.667 mls/hr Q12H IVPB 08/01/20 05:00 08/06/20 04:59 Vancomycin HCl ([facility] pharmacy to dose) 1 ea DAILY PRN MISC Per rx protocol 07/31/20 11:45 08/30/20 11:44 Vancomycin HCl 2 gm/Dextrose 500 ml @ 166.667 mls/hr ONCE IVPB 07/31/20 13:00 07/31/20 23:59 Assessment/Plan Assessment/Plan 1. COVID-19 pneumonia -Intubated 05/28/20 - on broad-spectrum antibiotics. -s/p solumedrol, Rocephin -Continue PEEP 6 ->7 ->5 - Peak airway pressures better - FiO2 100% -> 90 ->80->60 ->40 ->80 ->100 ->70 ->60 -> 50 ->45 ->40 ->50 ->40-> 80%; PEEP 7 ->5 - s/p PEG - Sputum Cx pseudo -> on meropenem per ID 2. Hyponatremia -Per primary MD 3. Elevated inflammatory markers - has high D dimer; On Lovenox -> Lovenox held given anemia 4. DVT of the right calf - once stable, consider IVC filter per heme vs oral DOAC - was on Lovenox but held given anemia 5. Decreased PEEP S/p trach Reported cuff leak per RN/RT Changed 3/1/21 however still has cuff leak 6. Leukocytosis - ID following - BCx, UCx, and Sp Cx On low dose Levophed; will attempt to wean off Will wean off IV sedation; started Seroquel, now TID s/p PEG Required R CT due to PTX 07/22/20 - CT removed (07/29) ->however, f/u CXR shows PTX with tracheal deviation. CT bharath nserted (07/30) Hold weaning for now The care of this patient was discussed with my supervising physician Time spent for this encounter was approximately 31 minutes Vamshi Garcia Jul 31, 2020 12:22
[2020-07-31] MEDS ORDERED: VANCOMYCIN IVPB SCH (13:00)
[2020-07-31] MEDS: fentaNYL 2500mcg/NS 250ml 250 ML IV PRN (13:00)
[2020-07-31] MEDS ORDERED: D5W IVPB SCH (13:00)
--- NOTE | 2020-07-31 13:58 | Nephrology Progress Note ---
Assessment/Plan Problem List: (1) DEVENDRA (acute kidney injury) (2) Morbid obesity (3) Diabetes mellitus out of control (4) Pneumonia due to COVID-19 virus (5) Respiratory failure Assessment Acute renal failure Obstructive uropathy, clogged [place] Respiratory failure COVID-19 pneumonia Morbid obesity Plan July 31: Chest tube was right reinserted on the right side. Patient remains trached on vent. Leukocytosis worsened . Renal parameters unchanged. Continue per current treatment plan. July 30: Status quo. Labs reviewed. Medication list reviewed. Stable from renal standpoint of view. Patient is full code, trached and vent, also has PEG. July 29: Status quo. Discussed with RN. Labs and medication list reviewed. Stable from renal standpoint of view. July 28: Full code. Labs reviewed. Abnormal electrolytes addressed. Medication list reviewed. Patient has trach and PEG and on ventilator. Continue per consultants. July 27: Full code. In ICU. Trach to vent. Labs reviewed. Renal parameters and electrolytes stable. July 26: Remains in ICU. Remains full code. Trach to vent. Labs reviewed. Abnormal electrolytes addressed. Continue per consultants. July 25: Seen in ICU. Received PEG yesterday. Has trach connected to vent. Full code. Labs reviewed. Albumin bolus given. IV started on table feeding via GT tube initiated. July 24: Patient seen in ICU. Status quo. Has trach. Being ventilated. Has right chest tube. Labs reviewed. Continue per consultants. Low magnesium and low phosphorus replaced. July 23: Patient seen in ICU. Discussed with RN. Yesterday the patient developed tension pneumothorax. Patient has a chest tube today. Labs reviewed. Renal parameters stable. Medication list reviewed. July 22: Status quo. Labs reviewed. Serum calcium elevated. Vitamin D discontinued. Pamidronate 60 mg IV given. Continue to monitor calcium and phosphorus. Patient due for PEG today. July 21: Status quo. Awake responsive. Labs reviewed. Medication list reviewed. Stable from renal standpoint of view. Due for PEG tomorrow. Continue her current management. July 20: Status quo. PEG procedure deferred to July 22. Patient remains full code. Abnormal electrolytes addressed. FiO2 50% unchanged. Continue per consultants. July 19: Status quo. Due for PEG insertion today. Remains full code. Trach and vent. Low magnesium addressed. Continue per consultants. FiO2 50%. July 18: Status quo. Labs reviewed. Low potassium addressed. Continue per consultants. Remains full code. July 17: Remains full code. Trach to vent. FiO2 40%. Labs reviewed. Low potassium addressed. Continue per consultants. July 16: Status quo. FiO2 45%. Discussed with RN. Continue to taper her mind altering medications and sedatives. Stable from renal standpoint of view. Abnormal electrolytes addressed. July 15: Full code. FiO2 50%. Intubated on ventilator. No labs drawn today. Continue per consultants. July 14: Status quo. FiO2 50%. Labs reviewed. Renal parameters stable. Continue per current treatment plan and consultants. Medication list reviewed. July 13: FiO2 60% unchanged. Labs reviewed. Renal parameters stable. Medication list reviewed. Continue per consultants. July 12: Full code. Labs reviewed. Normal electrolytes addressed. Continue per pulmonary. Medication list reviewed. July 11: Remains full code. On ventilator. FiO2 down to 65%. Renal parameters stable. Low magnesium addressed. Continue her current management. July 10: Full code. On ventilator. FiO2 70%. Hemoglobin mid sevens. Re nal parameters stable. Continue per consultants. July 09: Labs reviewed. Renal parameters stable. FiO2 80% unchanged. Co ntinue per pulmonary. July 08: Labs reviewed. Renal parameters and electrolytes stable. ABG suggestive of high PCO2. At this time patient is on FiO2 of 80%. Continue per pulmonary. Continue to monitor renal parameters. July 07: No CHEM panel drawn today. More potassium given. Continue to monitor renal parameters. Continue per consultants. Discussed with RAKEL Veras. July 06: Low potassium addressed. Albumin bolus for low BP given. Patient remains full code. Continue to monitor electrolytes and renal parameters. Continue per consultants. Hemoglobin low today, transfusion per plastic boat patcher. July 05: Trach to vent. FiO2 80%. Renal parameters stable. PCO2 remains high at 44. Continue to monitor renal parameters. July 04: Patient now trach. Full code. Labs reviewed. Renal parameters stable. Low magnesium addressed. July 03: Intubated. Full code. Labs reviewed. Abnormal electrolytes addressed. Continue per consultants. Overall status unchanged. July 02: Remains intubated. Remains full code. Remains on FiO2 of 70%. Labs reviewed. Abnormal electrolytes addressed. Continue per pulmonary. July 01: Remains on 70% FiO2. Full code. Intubated on ventilator. Retaining CO2. Discussed with RN. Will do ABG today. Albumin bolus given. 1 dose of Diamox given. June 30: Status quo. Labs reviewed. Abnormal electrolytes addressed. Remains full code. Remains on ventilator. Magnesium sulfate 4 gram IVPB given. June 29: Full code. Intubated on ventilator. Labs reviewed. Stable from renal standpoint of view. Continue per consultants. June 28: Remains full code. Remains intubated on ventilator. Labs reviewed. Vitamin D supplement ordered. Continue to monitor renal parameters. Continue per consultants. June 27: Remains full code. Intubated on ventilator. Labs reviewed. Abnormal electrolyte addressed. Continue to monitor renal parameters and electrolytes. Continue per consultants. June 26: Labs reviewed. Remains full code. Remains intubated. Back on NGT feeding. Continue to monitor renal parameters. June 25: Labs reviewed. Renal parameters stable. Remains full code. Due to positional status patient could not be fed via NG tube. Starting TPN? Is being entertained. Continue per consultants. June 24: Labs reviewed. Renal parameters stable. Remains full code. Remains intubated on ventilator. Continue per consultants. June 23: Labs reviewed. Renal parameters stable. Discussed with RN. Abnormal electrolyte addressed. Remains full code. Remains on ventilator. Continue per consultants. June 22: Labs reviewed. Low potassium addressed. Discussed with RAKEL Moran. Patient full code. Remains on ventilator. Continue to monitor renal parameters. June 21. Labs reviewed. Abnormal electrolyte addressed. Full code. Remains on ventilator. Medication list reviewed. Continue per pulmonary management. DC IV fluid, resume Lasix daily, check chest x-ray. June 20: Labs reviewed. Abnormal electrolytes. Patient remains full code. Continue per consultants. Noted and addressed June 19: Labs reviewed. Abnormal electrolytes noted and addressed. Remains intubated on ventilator. Remains full code. June 18: Labs reviewed. Remains intubated on ventilator. Full code. Abnormal electrolyte addressed. Continue as is. June 17: Labs reviewed. Abnormal electrolytes addressed. Patient remains full code and intubated on ventilator. Continue per consultants. Renal parameters are within normal limits. June 16: Labs reviewed. Potassium chloride replaced. Remains full code. Remains intubated on ventilator. Continue per consultants. Continue to monitor renal parameters. June 15: Labs reviewed. Serum creatinine 1. Stable from renal standpoint to view. Continue per consultants. June 14: Labs reviewed. Full code. Serum creatinine of 3.5 down to 1.4. Low potassium addressed. Continue per current treatment plan. Continue to monitor renal parameters. Midodrine started. Albumin bolus given. Previously: DC Lasix drip Increase Protonix dose Monitor renal parameters, electrolytes Per orders Subjective ROS Limited/Unobtainable: Yes Objective Objective Last 24 Hour Vital Signs Date Time Temp Pulse Resp B/P (MAP) Pulse Ox O2 Delivery O2 Flow Rate FiO2 07/31/20 12:00 104 07/31/20 12:00 117 34 138/63 (88) 100 07/31/20 11:14 115 32 70 07/31/20 11:00 113 27 134/79 (97) 100 07/31/20 11:00 33 134/79 Mechanical Ventilator 80 07/31/20 10:30 112 28 125/73 (90) 100 07/31/20 10:00 114 29 120/69 (86) 100 07/31/20 10:00 29 120/69 Mechanical Ventilator 80 07/31/20 09:30 108 25 124/66 (85) 100 07/31/20 09:00 109 26 113/83 (93) 100 07/31/20 09:00 26 113/83 Mechanical Ventilator 80 07/31/20 08:30 110 26 126/74 (91) 100 07/31/20 08:00 97.5 106 16 123/74 (90) 99 07/31/20 08:00 16 123/74 Mechanical Ventilator 80 07/31/20 08:00 Mechanical Ventilator Mechanical Ventilator 07/31/20 08:00 100 07/31/20 08:00 109 07/31/20 07:30 110 23 119/73 (88) 99 07/31/20 07:09 104 17 80 07/31/20 07:00 111 21 119/73 (88) 99 07/31/20 07:00 21 119/78 Mechanical Ventilator 100 07/31/20 06:30 98.0 113 44 138/80 (99) 94 07/31/20 06:00 31 129/77 Mechanical Ventilator 45 07/31/20 06:00 110 31 126/79 (95) 98 07/31/20 05:30 122 34 124/67 (86) 97 07/31/20 05:00 29 121/66 Mechanical Ventilator 45 07/31/20 05:00 99.0 120 28 119/66 (83) 97 07/31/20 04:30 128 33 131/76 (94) 99 07/31/20 04:00 126 07/31/20 04:00 Mechanical Ventilator Mechanical Ventilator 07/31/20 04:00 101.0 133 40 141/64 (89) 87 07/31/20 04:00 50 07/31/20 04:00 24 125/84 Mechanical Ventilator 50 07/31/20 03:30 128 44 121/90 (100) 89 07/31/20 03:14 120 47 50 07/31/20 03:00 42 117/96 Mechanical Ventilator 60 07/31/20 03:00 122 47 149/97 (114) 88 07/31/20 02:30 113 38 117/78 (91) 98 07/31/20 02:00 111 43 120/80 (93) 98 07/31/20 02:00 42 117/96 Mechanical Ventilator 70 07/31/20 01:45 110 42 113/76 (88) 99 07/31/20 01:45 45 140/63 Mechanical Ventilator 60 07/31/20 01:30 109 42 109/73 (85) 99 07/31/20 01:30 45 140/62 Mechanical Ventilator 60 07/31/20 01:15 43 120/65 Mechanical Ventilator 60 07/31/20 01:00 108 38 113/68 (83) 98 07/31/20 01:00 43 110/65 Mechanical Ventilator 50 07/31/20 00:30 108 101/60 (74) 07/31/20 00:00 126 07/31/20 00:00 99.4 104 25 100/59 (73) 100 07/31/20 00:00 Mechanical Ventilator Mechanical Ventilator 07/31/20 00:00 43 110/65 Mechanical Ventilator 50 07/31/20 00:00 45 07/30/20 23:30 104 29 102/62 (75) 100 07/30/20 23:27 104 24 55 07/30/20 23:00 105 28 111/57 (75) 100 07/30/20 23:00 27 105/65 Mechanical Ventilator 45 07/30/20 22:45 107 21 105/64 (78) 100 07/30/20 22:30 107 23 101/78 (86) 100 07/30/20 22:15 109 27 100/68 (79) 99 07/30/20 22:00 110 19 101/66 (78) 99 07/30/20 22:00 27 100/68 Mechanical Ventilator 45 07/30/20 21:45 110 34 106/63 (77) 100 07/30/20 21:30 110 39 104/63 (77) 100 07/30/20 21:00 106 24 120/73 (89) 100 07/30/20 21:00 23 113/73 Mechanical Ventilator 45 07/30/20 20:30 107 23 125/79 (94) 100 07/30/20 20:00 45 07/30/20 20:00 109 07/30/20 20:00 33 126/74 Mechanical Ventilator 45 07/30/20 20:00 Mechanical Ventilator Mechanical Ventilator 07/30/20 20:00 99.4 112 34 127/69 (88) 90 07/30/20 19:30 112 41 55 07/30/20 19:30 114 33 120/77 (91) 84 07/30/20 19:00 27 114/60 Mechanical Ventilator 45 07/30/20 18:30 107 46 114/75 (88) 98 07/30/20 18:00 101 18 118/67 (84) 99 07/30/20 18:00 30 118/67 Mechanical Ventilator 45 07/30/20 17:30 106 41 111/65 (80) 95 07/30/20 17:00 33 111/65 40 07/30/20 17:00 104 36 111/68 (82) 92 07/30/20 16:00 106 07/30/20 16:00 45 07/30/20 16:00 98.8 104 32 106/68 (81) 100 07/30/20 16:00 33 106/68 Mechanical Ventilator 45 07/30/20 16:00 Mechanical Ventilator Mechanical Ventilator 07/30/20 15:30 107 36 78/41 (53) 98 07/30/20 15:15 107 29 92/64 (73) 99 07/30/20 15:00 107 27 89/56 (67) 100 07/30/20 15:00 105 42 45 07/30/20 15:00 31 92/64 Mechanical Ventilator 45 07/30/20 14:30 109 35 96/60 (72) 100 07/30/20 14:30 31 92/64 Mechanical Ventilator 45 07/30/20 14:00 33 91/58 Mechanical Ventilator 45 07/30/20 14:00 33 91/58 Mechanical Ventilator 45 07/30/20 14:00 114 31 91/58 (69) 100 Intake and Output 07/30/20 07/31/20 19:00 07:00 Intake Total 1040 ml 1311.25 ml Output Total 578 ml 720 ml Balance 462 ml 591.25 ml Free Water 40 ml 70 ml IV Total 760 ml 796.25 ml Tube Feeding 240 ml 445 ml Output Urine Total 560 ml 710 ml Chest Tube Drainage Total 18 ml 10 ml # Bowel Movements 1 Current Medications Medications (Trade) Dose Ordered Sig/Zelda Route PRN Reason Start Time Stop Time Status Last Admin Dose Admin Acetaminophen (Tylenol) 650 mg Q4H PRN NG Temp >100.5 07/27/20 03:45 08/26/20 03:44 07/29/20 20:24 Calcitonin [place] (Miacalcin) 1 sprays DAILY NASAL 07/22/20 14:00 10/20/20 13:59 07/31/20 08:40 Chlorhexidine Gluconate (Inna-Hex 2%) 1 applic DAILY@2000 TOPIC 07/20/20 20:00 10/18/20 19:59 07/30/20 20:12 Dextrose (Dextrose 50%) 25 ml Q30M PRN IV Hypoglycemia 06/05/20 10:45 09/03/20 10:44 Dextrose (Dextrose 50%) 50 ml Q30M PRN IV Hypoglycemia 06/05/20 10:45 09/03/20 10:44 Docusate Sodium (Colace) 100 mg TWICE A DAY NG 07/26/20 18:00 08/25/20 17:59 07/31/20 08:40 Enoxaparin Sodium (Lovenox) 110 mg EVERY 12 HOURS SUBQ 07/17/20 21:00 10/15/20 20:59 07/31/20 08:42 Fentanyl Citrate 250 ml @ 0 mls/hr Q24H PRN IV . 07/31/20 12:00 08/02/20 11:59 Guaifenesin/ Codeine Phosphate (Robitussin with codeine) 5 ml Q6H PRN NG For Cough 07/14/20 14:15 08/13/20 14:14 07/18/20 21:44 Lansoprazole (Prevacid) 30 mg DAILY GT 07/18/20 09:00 08/09/20 08:59 07/31/20 08:40 Meropenem 1 gm/ Sodium Chloride 55 ml @ 110 mls/hr Q8H IVPB 07/22/20 12:00 08/02/20 11:59 07/31/20 12:44 Midazolam HCl 200 ml @ 0 mls/hr Q24H PRN IV SEDATION 07/29/20 14:15 08/05/20 14:14 07/30/20 00:37 Midodrine (Pro-Amatine) 10 mg Q8HR GT 06/30/20 14:00 09/12/20 13:59 07/31/20 05:37 Ondansetron HCl (Zofran) 4 mg EVERY 8 HOURS IVP 07/31/20 14:00 08/30/20 13:59 Polyethylene Glycol (Miralax) 17 gm BEDTIME ORAL 07/26/20 21:00 08/25/20 20:59 07/30/20 20:44 Quetiapine Fumarate (SEROqueL) 50 mg Q8HR GT 07/31/20 14:00 08/30/20 13:59 Vancomycin HCl 250 ml @ 166.667 mls/hr Q12H IVPB 08/01/20 05:00 08/06/20 04:59 Vancomycin HCl (Vanco pharmacy to dose) 1 ea DAILY PRN MISC Per rx protocol 07/31/20 11:45 08/30/20 11:44 Vancomycin HCl 2 gm/Dextrose 500 ml @ 166.667 mls/hr ONCE IVPB 07/31/20 13:00 07/31/20 23:59 Laboratory Tests 07/31/20 03:35: White Blood Count 23.8#*H, Red Blood Count 3.06L, Hemoglobin 8.8L, Hematocrit 29.3L, Mean Corpuscular Volume 96, Mean Corpuscular Hemoglobin 28.8, Mean Corpuscular Hemoglobin Concent 30.1L, Red Cell Distribution Width 18.2H, Platelet Count 345, Mean Platelet Volume 7.2, Neutrophils (%) (Auto) , Lymphocytes (%) (Auto) , Monocytes (%) (Auto) , Eosinophils (%) (Auto) , Basophils (%) (Auto) , Differential Total Cells Counted 100, Neutrophils % (Manual) 80H, Lymphocytes % (Manual) 11L, Monocytes % (Manual) 7, Eosinophils % (Manual) 2, Basophils % (Manual) 0, Band Neutrophils 0, Platelet Estimate Adequate, Platelet Morphology Normal, Hypochromasia 1+, Anisocytosis 1+, Sodium Level 142, Potassium Level 4.4, Chloride Level 100, Carbon Dioxide Level 39H, Anion Gap 3L, Blood Urea Nitrogen 5L, Creatinine 0.4L, Estimat Glomerular Filtration Rate > 60, Glucose Level 172H, Calcium Level 8.3L, Total Bilirubin 0.7, Aspartate Amino Transf (AST/SGOT) 25, Alanine Aminotransferase (ALT/SGPT) 13, Alkaline Phosphatase 82, Total Protein 7.0, Albumin 2.4L, Globulin 4.6, Albumin/Globulin Ratio 0.5L Height (Feet): 5 Height (Inches): 5.00 Weight (Pounds): 223 General Appearance: no apparent distress Cardiovascular: tachycardia Respiratory/Chest: decreased breath sounds Abdomen: distended Rigo Tyler MD Jul 31, 2020 13:58
--- NOTE | 2020-07-31 14:10 | NUR ---
RECTIFICATION PRINTER NOTES MESSAGE LEFT FOR JAYA FOR FOLLOW UP ON PLACEMENT AT [facility] OR TRANSFER TO [facility]. WAITING FOR CALL BACK.
--- NOTE | 2020-07-31 14:25 | Surgery Progress Note ---
Surgery Progress Note Subjective Procedure Performed right tube chest tube insertion Additional Comments ptx near resolved improve Objective Last 24 Hour Vital Signs Date Time Temp Pulse Resp B/P (MAP) Pulse Ox O2 Delivery O2 Flow Rate FiO2 07/31/20 14:00 117 29 137/82 (100) 87 07/31/20 14:00 116 34 137/82 (100) 100 07/31/20 13:46 116 32 126/54 (78) 07/31/20 13:00 116 29 126/54 (78) 87 07/31/20 12:30 109 31 129/82 (98) 100 07/31/20 12:00 104 07/31/20 12:00 70 07/31/20 12:00 117 34 138/63 (88) 100 07/31/20 12:00 98.8 118 40 132/76 (94) 100 07/31/20 11:30 113 34 132/85 (101) 100 07/31/20 11:14 115 32 70 07/31/20 11:00 113 27 134/79 (97) 100 07/31/20 11:00 33 134/79 Mechanical Ventilator 80 07/31/20 10:30 112 28 125/73 (90) 100 07/31/20 10:00 114 29 120/69 (86) 100 07/31/20 10:00 29 120/69 Mechanical Ventilator 80 07/31/20 09:30 108 25 124/66 (85) 100 07/31/20 09:00 109 26 113/83 (93) 100 07/31/20 09:00 26 113/83 Mechanical Ventilator 80 07/31/20 08:30 110 26 126/74 (91) 100 07/31/20 08:00 97.5 106 16 123/74 (90) 99 07/31/20 08:00 16 123/74 Mechanical Ventilator 80 07/31/20 08:00 Mechanical Ventilator Mechanical Ventilator 07/31/20 08:00 100 07/31/20 08:00 109 07/31/20 07:30 110 23 119/73 (88) 99 07/31/20 07:09 104 17 80 07/31/20 07:00 111 21 119/73 (88) 99 07/31/20 07:00 21 119/78 Mechanical Ventilator 100 07/31/20 06:30 98.0 113 44 138/80 (99) 94 07/31/20 06:00 31 129/77 Mechanical Ventilator 45 07/31/20 06:00 110 31 126/79 (95) 98 07/31/20 05:30 122 34 124/67 (86) 97 07/31/20 05:00 29 121/66 Mechanical Ventilator 45 07/31/20 05:00 99.0 120 28 119/66 (83) 97 07/31/20 04:30 128 33 131/76 (94) 99 07/31/20 04:00 126 07/31/20 04:00 Mechanical Ventilator Mechanical Ventilator 07/31/20 04:00 101.0 133 40 141/64 (89) 87 07/31/20 04:00 50 07/31/20 04:00 24 125/84 Mechanical Ventilator 50 07/31/20 03:30 128 44 121/90 (100) 89 07/31/20 03:14 120 47 50 07/31/20 03:00 42 117/96 Mechanical Ventilator 60 07/31/20 03:00 122 47 149/97 (114) 88 07/31/20 02:30 113 38 117/78 (91) 98 07/31/20 02:00 111 43 120/80 (93) 98 07/31/20 02:00 42 117/96 Mechanical Ventilator 70 07/31/20 01:45 110 42 113/76 (88) 99 07/31/20 01:45 45 140/63 Mechanical Ventilator 60 07/31/20 01:30 109 42 109/73 (85) 99 07/31/20 01:30 45 140/62 Mechanical Ventilator 60 07/31/20 01:15 43 120/65 Mechanical Ventilator 60 07/31/20 01:00 108 38 113/68 (83) 98 07/31/20 01:00 43 110/65 Mechanical Ventilator 50 07/31/20 00:30 108 101/60 (74) 07/31/20 00:00 126 07/31/20 00:00 99.4 104 25 100/59 (73) 100 07/31/20 00:00 Mechanical Ventilator Mechanical Ventilator 07/31/20 00:00 43 110/65 Mechanical Ventilator 50 07/31/20 00:00 45 07/30/20 23:30 104 29 102/62 (75) 100 07/30/20 23:27 104 24 55 07/30/20 23:00 105 28 111/57 (75) 100 07/30/20 23:00 27 105/65 Mechanical Ventilator 45 07/30/20 22:45 107 21 105/64 (78) 100 07/30/20 22:30 107 23 101/78 (86) 100 07/30/20 22:15 109 27 100/68 (79) 99 07/30/20 22:00 110 19 101/66 (78) 99 07/30/20 22:00 27 100/68 Mechanical Ventilator 45 07/30/20 21:45 110 34 106/63 (77) 100 07/30/20 21:30 110 39 104/63 (77) 100 07/30/20 21:00 106 24 120/73 (89) 100 07/30/20 21:00 23 113/73 Mechanical Ventilator 45 07/30/20 20:30 107 23 125/79 (94) 100 07/30/20 20:00 45 07/30/20 20:00 109 07/30/20 20:00 33 126/74 Mechanical Ventilator 45 07/30/20 20:00 Mechanical Ventilator Mechanical Ventilator 07/30/20 20:00 99.4 112 34 127/69 (88) 90 07/30/20 19:30 112 41 55 07/30/20 19:30 114 33 120/77 (91) 84 07/30/20 19:00 27 114/60 Mechanical Ventilator 45 07/30/20 18:30 107 46 114/75 (88) 98 07/30/20 18:00 101 18 118/67 (84) 99 07/30/20 18:00 30 118/67 Mechanical Ventilator 45 07/30/20 17:30 106 41 111/65 (80) 95 07/30/20 17:00 33 111/65 40 07/30/20 17:00 104 36 111/68 (82) 92 07/30/20 16:00 106 07/30/20 16:00 45 07/30/20 16:00 98.8 104 32 106/68 (81) 100 07/30/20 16:00 33 106/68 Mechanical Ventilator 45 07/30/20 16:00 Mechanical Ventilator Mechanical Ventilator 07/30/20 15:30 107 36 78/41 (53) 98 07/30/20 15:15 107 29 92/64 (73) 99 07/30/20 15:00 107 27 89/56 (67) 100 07/30/20 15:00 105 42 45 07/30/20 15:00 31 92/64 Mechanical Ventilator 45 07/30/20 14:30 109 35 96/60 (72) 100 07/30/20 14:30 31 92/64 Mechanical Ventilator 45 I&O Intake and Output 07/30/20 07/31/20 19:00 07:00 Intake Total 1040 ml 1311.25 ml Output Total 578 ml 720 ml Balance 462 ml 591.25 ml Free Water 40 ml 70 ml IV Total 760 ml 796.25 ml Tube Feeding 240 ml 445 ml Output Urine Total 560 ml 710 ml Chest Tube Drainage Total 18 ml 10 ml # Bowel Movements 1 Dressing: saturated Drains: other Cardiovascular: RSR Respiratory: decreased breath sounds Abdomen: soft, non-tender, present bowel sounds, non-distended, decreased bowel sounds Extremities: no edema, no tenderness, no cyanosis Laboratory Tests Test 07/31/20 03:35 White Blood Count 23.8 K/UL (4.8-10.8) #*H Red Blood Count 3.06 M/UL (4.20-5.40) L Hemoglobin 8.8 G/DL (12.0-16.0) L Hematocrit 29.3 % (37.0-47.0) L Mean Corpuscular Volume 96 FL (80-99) Mean Corpuscular Hemoglobin 28.8 PG (27.0-31.0) Mean Corpuscular Hemoglobin Concent 30.1 G/DL (32.0-36.0) L Red Cell Distribution Width 18.2 % (11.6-14.8) H Platelet Count 345 K/UL (150-450) Mean Platelet Volume 7.2 FL (6.5-10.1) Neutrophils (%) (Auto) % (45.0-75.0) Lymphocytes (%) (Auto) % (20.0-45.0) Monocytes (%) (Auto) % (1.0-10.0) Eosinophils (%) (Auto) % (0.0-3.0) Basophils (%) (Auto) % (0.0-2.0) Differential Total Cells Counted 100 Neutrophils % (Manual) 80 % (45-75) H Lymphocytes % (Manual) 11 % (20-45) L Monocytes % (Manual) 7 % (1-10) Eosinophils % (Manual) 2 % (0-3) Basophils % (Manual) 0 % (0-2) Band Neutrophils 0 % (0-8) Platelet Estimate Adequate Platelet Morphology Normal Hypochromasia 1+ Anisocytosis 1+ Sodium Level 142 MMOL/L (136-145) Potassium Level 4.4 MMOL/L (3.5-5.1) Chloride Level 100 MMOL/L (98-107) Carbon Dioxide Level 39 MMOL/L (21-32) H Anion Gap 3 mmol/L (5-15) L Blood Urea Nitrogen 5 mg/dL (7-18) L Creatinine 0.4 MG/DL (0.55-1.30) L Estimat Glomerular Filtration Rate > 60 mL/min (>60) Glucose Level 172 MG/DL (74-106) H Calcium Level 8.3 MG/DL (8.5-10.1) L Total Bilirubin 0.7 MG/DL (0.2-1.0) Aspartate Amino Transf (AST/SGOT) 25 U/L (15-37) Alanine Aminotransferase (ALT/SGPT) 13 U/L (12-78) Alkaline Phosphatase 82 U/L (46-116) Total Protein 7.0 G/DL (6.4-8.2) Albumin 2.4 G/DL (3.4-5.0) L Globulin 4.6 g/dL Albumin/Globulin Ratio 0.5 (1.0-2.7) L Plan Problems: (1) Respiratory distress (2) Respiratory failure Assessment & Plan: 50-year-old female Covid positive respiratory insufficiency intubated on ventilatory support declining. Leukocytosis increase oxygen requirement. Vent settings per pulmonology reviewed identified and agree. Unfortunately further surgical invention at this time is not appropriate as patient is not a candidate and her current condition. Prognosis overall guarded. Tracheostomy can be considered in the future if recovering or shows improvement and requires unable to be weaned from ventilator support. Currently okay for nutritional optimization with NG tube. Will need significant monitoring for decubitus formation given patient's size and condition. Okay for air mattress tolerated. Turn every 2 hours as tolerated. Patient is otherwise critically ill and blood pressure labile. Will need to monitor closely.Bilateral infiltrates are again demonstrated. Stable tube and line positions. will need trach will need to wean vent first no cuff leak trach okay Improving weaning well DC planning placement much improved peg placement trach changed acls now resuscitated (3) Hypoxia (4) Pneumonia due to COVID-19 virus Assessment & Plan: ++ as per pulm and ID (5) Diabetes mellitus out of control Assessment & Plan: DAILY ESTIMATED NEEDS: Needs based on Critical care, obesity 11-14kcal/kg actual body wt (140kg) kcals/kg 3907-9646 total kcals 1.5-2.0g prot/kg IBW (64.5kg) g protein/kg 96-129 g total protein 25-30ml/kg abw (83kg) mL/kg 0788-9705 total fluid mLs NUTRITION DIAGNOSIS: Swallowing difficulty R/T respiratory failure as evidenced by pt orally intubated and sedated, on OGT feeds. CURRENT TF: Vital 1.2 goal of 60ml/hr ENTERAL NUTRITION RECOMMENDATIONS: Vital AF 1.2 @ 60ml/hr x 24 hrs to provide 1440ml, 1728kcal, 108g prot, 1168ml free water * Maintain current critical care and carb controlled TF formula of Vital AF * TF @ goal meeds 100% est kcal/prot needs * HOB over 30 degrees/ water flush per MD TF may be lowered to 55ml/hr for improved BG control while maintaining Kcal and pro needs. ADDITIONAL RECOMMENDATIONS: * Calibrated bedscale wt * Monitor Propofol rate, need for TF adjustment-> now off * Monitor BGs closely : now improved, on novolog q 6rs + NISS * Monitor lytes- K elevated, monitor need for TF change * Rec bowel regimen- now w/ rectal tube . (6) Pneumothorax on right Assessment & Plan: right tension pneumothorax trach changed for cuff leak and decreased volumes pressures high after and ptx tension acls resuscitated right chest tube placed ptx resolved cont chest tube to suction am cxr wean vent Right chest tube, tracheostomy, nasogastric tube remain. Previously demonstrated subcutaneous emphysema has nearly completely cleared, with only questionably small residual in the left supraclavicular fossa. Extensive bilateral infiltrates persist. There is no pneumothorax currently. The heart is borderline enlarged. Pneumoperitoneum persists, may be slightly decreased Impression: Markedly improved subcutaneous emphysema Unchanged bilateral infiltrates Persistent but perhaps slightly decreased pneumoperitoneum chest tube removed 07/29 f/u cxr new chest tube 07/30 (7) DEVENDRA (acute kidney injury) (8) Morbid obesity Az Devine Jul 31, 2020 14:25
--- NOTE | 2020-07-31 15:18 | NUR ---
INSURANCE CLINICALS FAXED TO [facility] T: [phone] EXT [id number] F: [phone]
[2020-07-31 16:06] LABS: APPEARANCE,URINE CLOUDY; BILIRUBIN, URINE NEGATIVE (NEGATIVE); COLOR,URINE ORANGE; GLUCOSE, URINE (UA) NEGATIVE (NEGATIVE); KETONES,URINE 1+ (NEGATIVE); LEUKOCYTE ESTERASE ,URINE 3+ (NEGATIVE); NITRITE,URINE POSITIVE (NEGATIVE); PH,URINE 6 (4.5-8.0); PROTEIN,URINE 3+ (NEGATIVE); UROBILINOGEN,URINE 1 MG/DL (0.0-1.0)
--- NOTE | 2020-07-31 19:00 | NUR ---
Pt remains trach to vent. Pt remains on fentanyl. Pt had another emesis occurrence. Pt on 70% FiO2. Pt remains on tube feeding per MD orders. Pt remains with R chest tube. No output over the day. Lennon patent. Pt in NAD at this time. 0720: Report given to RAKEL Ferreira. All questions answered. VSS. Care continues.
[2020-07-31] MEDS: Dyna-Hex 2% Top Sol 2oz TOPIC SCH (20:16)
[2020-07-31] MEDS: Miralax 17gm pkt ORAL SCH (20:16)
[2020-08-01] VITALS (43 sets, daily range): BP systolic 104–134; BP diastolic 23–98
[2020-08-01] MEDS: Meropenem 1 GM in NS 55 ML IVPB SCH ×3 (03:21→20:46)
[2020-08-01 05:37] LABS: ANION GAP 1 mmol/L (5-15); BLOOD UREA NITROGEN 2 mg/dL (7-18); CALCIUM 8.1 MG/DL (8.5-10.1); CHLORIDE 101 MMOL/L (98-107); CREATININE 0.5 MG/DL (0.55-1.30); POTASSIUM 4.7 MMOL/L (3.5-5.1); SODIUM 143 MMOL/L (136-145)
[2020-08-01 05:44] LABS: BASOPHILS % (AUTO) 0.6 % (0.0-2.0); HEMATOCRIT 27.8 % (37.0-47.0); HEMOGLOBIN 8.4 G/DL (12.0-16.0); LYMPHOCYTES % (AUTO) 13.3 % (20.0-45.0); MEAN CORPUSCULAR VOLUME 96 FL (80-99); MONOCYTES % (AUTO) 6.9 % (1.0-10.0); NEUTROPHILS % (AUTO) 78.2 % (45.0-75.0); PLATELET COUNT 215 K/UL (150-450); RED CELL DISTRIBUTION WIDTH 18.2 % (11.6-14.8); WHITE BLOOD COUNT 9.7 K/UL (4.8-10.8)
[2020-08-01 05:52] LABS: CARBON DIOXIDE 40 MMOL/L (21-32)
--- NOTE | 2020-08-01 06:09 | Hematology/Onc Progress Note ---
Assessment/Plan Assessment/Plan # Deep vein thrombosis of the right calf --> given onoing anemia and low plts --> consider ivc if bleeding--once stable, needs it placed --> once stable, for radiology and ivc filter placement --> on lovenox bid now # Thrombocytopenia is due to infection/underlying covid19+++ --> ABX ceftriaxone -->zosyn-->off-->meropenem --> on steriods likely cause of initial wbc --> per pulm --> plt 107->156-->192-->205 --> smear reviewed # Leukocytosis due to Pneumonia due to COVID-19 virus --> per pulm rx -> sp remdesivir --> ABX vanc/meropenem --> wbc 11.9-->11-->21-->8.8-->11.7-->13-->24-->9 # Anemia due to chronic disease --> hgb goal is >7 --> transfuse prn --> ferritin is >1000 --> hold off on iron --> 10-->9.8->9-->8-->8.2->>7.1-->7.9->7.5-->9.5-->8.5-->8.8->8.4 --> 1 unit prbc 07/24 # Elevated ddimer due to covid19++ --> duplex legs is negative --> underlying covid rx # Hypoxia -> due to covid19 --> steriods as needed # Hypoxemia --> rx same as above # Respiratory failure --> on vent/trach --> per pulm # Diabetes mellitus out of control --> hgb a1c goal <7 # Dysphagia --> s/p peg # Poor prognosis # Dvt ppx ivc filter once more stable --> dvt ppx now lovenox sq Appreciate consultation and bowen RN Subjective Allergies: Coded Allergies: No Known Allergies (Unverified , 05/28/20) All Systems: reviewed and negative except above Subjective 06/10 nv, on vent, with ogt, on fentanyl and versed, plt stable 06/11 nv, vent adjusted is on ogt, meds reviewed 06/12 nv, vent, meds noted, labs noted, no bleeding, hgb 10.4 06/13 nv, is on vent, meds reviewed, no bleeding, cbc reviewed 06/14 nv, on vent, tachy, labs reviewed, gross hematuria, febrile overnight, abx 06/17 nv, on vent, labs noted, no major changes, feeling better overnight 06/18 nv, meds reviewed, labs noted, no major events, hgb 8.6 06/19 nv, remains intubated, with fluids, labs reviewed, meds noted 06/20 nv, intubated remains on restraints, meds noted as well, as labs 06/21 nv, remains on vent, on restraints, meds reviewed, labs noted 06/22: covering Dr. Del Cid no acute events 06/23 sedated, on vent, nv, intubated, meds reviewed, versed 06/24 nv, on vent, no night sweats, no bleeding, remains in icu 06/25 nv, on vent, icu, meds noted, no bleeding, comfortable 06/26 nv, on versed, icu, weaning parameters, labs noted 06/27 nv, overnight fighting vent, as per pulm fentanyl on board 06/28 nv, on vent, labs reviewed, as per pulm, meds noted 06/30 nv, icu, labs pending, is on fentanyl, versed, no new changes 07/01 nv, icu, is on vent, labs pending, no new changes per rn 07/02 nv, icu is on vent, labs noted, hgb is stable 07/03 nv, icu, is on vent, potential trrach when stable, cbc reviewed 07/04 icu, nv, labs are noted, stable for trach today dw Rn Dl 07/05 icu, nv, on vent, with ng and picc in place, labs noted, s/p trach 07/07 icu, nv, on tv, no bleeding, labs noted, meds reviewed 07/08 icu, nv, on tv, labs reviewed, meds noted, no bleeding 07/09 icu, nv, meds noted, no bleeding, blood transfusion was completed 07/10 icu, nv, labs ntoed, no bleeding, hgb improved, hgb 7.8 07/11 icu, nv, labs reviewed, hgb is improved, for ivcf if stabilizes 07/12 icu, nv, labs reviewed, meds noted, no bleeding, remains on vent 07/13 icu, on vent, nv, no bleeding, labs reviewed, no major events, bowen rn 07/14 icu, on vent, nv, tolerating ngt feeds, dw Rn, meds reviewed 07/15 icu, on vent, trach, tolerating ngt, meds noted, no bleeding 07/16 icu, vent, labs are noted, with trach, is stable, hgb 9.2 07/17 icu, had a bm overnight, remains on vent with trach, labs noted 07/18 icu, nv, labs are ntoed, no bleeding, on trach, on levophed 07/20 nc, icu, meds noted, v/t, no bleeding, labs noted, on versed 07/21 nv, trach/vent, tube feeds on hold, labs reviewed, icu 07/22 nv, icu, bp remains high, on v/t, labs noted, no bleeding 07/23 nv, ct is in place, on v/t, meds reviewed, in icu, on LEVO 07/24 nv, ct with blood secretions, to get 1 unit prbc today, icu 07/25 icu, nv, trach/v, obtunded, sedated, no bleeding, dw rn 07/26 icu, nv, v/t, with gt, remains obtunded, as well as sedated, labs noted 07/27: no events. 07/28: remains intubated on vent 07/29 agitated, tachypneic, tachycardic is on vent, labs reviewed, meds noted 07/30 vent setting adjusted, is afebrile, no bleeding, tachycardic, labs noted 07/31 icu, trach/vent, on fentanyl gtt, labs reviewed, no bleeding 08/01 icu, nv, on t/v, fentanyl, hgb 9.4, no hemolysis, meds noted Objective Objective Current Medications Medications (Trade) Dose Ordered Sig/Zelda Route PRN Reason Start Time Stop Time Status Last Admin Dose Admin Acetaminophen (Tylenol) 650 mg Q4H PRN NG Temp >100.5 07/27/20 03:45 08/26/20 03:44 07/29/20 20:24 Calcitonin Cooper (Miacalcin) 1 sprays DAILY NASAL 07/22/20 14:00 10/20/20 13:59 07/31/20 08:40 Chlorhexidine Gluconate (Inna-Hex 2%) 1 applic DAILY@2000 TOPIC 07/20/20 20:00 10/18/20 19:59 07/31/20 20:16 Dextrose (Dextrose 50%) 25 ml Q30M PRN IV Hypoglycemia 06/05/20 10:45 09/03/20 10:44 Dextrose (Dextrose 50%) 50 ml Q30M PRN IV Hypoglycemia 06/05/20 10:45 09/03/20 10:44 Docusate Sodium (Colace) 100 mg TWICE A DAY NG 07/26/20 18:00 08/25/20 17:59 07/31/20 18:07 Enoxaparin Sodium (Lovenox) 110 mg EVERY 12 HOURS SUBQ 07/17/20 21:00 10/15/20 20:59 07/31/20 20:18 Fentanyl Citrate 250 ml @ 0 mls/hr Q24H PRN IV . 07/31/20 12:00 08/02/20 11:59 07/31/20 13:00 Guaifenesin/ Codeine Phosphate (Robitussin with codeine) 5 ml Q6H PRN NG For Cough 07/14/20 14:15 08/13/20 14:14 07/18/20 21:44 Lansoprazole (Prevacid) 30 mg DAILY GT 07/18/20 09:00 08/09/20 08:59 07/31/20 08:40 Meropenem 1 gm/ Sodium Chloride 55 ml @ 110 mls/hr Q8H IVPB 07/22/20 12:00 08/02/20 11:59 08/01/20 03:21 Midazolam HCl 200 ml @ 0 mls/hr Q24H PRN IV SEDATION 07/29/20 14:15 08/05/20 14:14 07/30/20 00:37 Midodrine (Pro-Amatine) 10 mg Q8HR GT 06/30/20 14:00 09/12/20 13:59 07/31/20 20:19 Ondansetron HCl (Zofran) 4 mg EVERY 8 HOURS IVP 07/31/20 14:00 08/30/20 13:59 07/31/20 20:19 Polyethylene Glycol (Miralax) 17 gm BEDTIME ORAL 07/26/20 21:00 08/25/20 20:59 07/31/20 20:16 Quetiapine Fumarate (SEROqueL) 50 mg Q8HR GT 07/31/20 14:00 08/30/20 13:59 07/31/20 20:19 Vancomycin HCl 250 ml @ 166.667 mls/hr Q12H IVPB 08/01/20 05:00 08/06/20 04:59 Vancomycin HCl (Vanco pharmacy to dose) 1 ea DAILY PRN MISC Per rx protocol 07/31/20 11:45 08/30/20 11:44 Last 24 Hour Vital Signs Date Time Temp Pulse Resp B/P (MAP) Pulse Ox O2 Delivery O2 Flow Rate FiO2 08/01/20 05:00 101 33 111/88 (96) 100 08/01/20 04:00 Mechanical Ventilator Mechanical Ventilator 08/01/20 04:00 102 29 128/84 (99) 100 08/01/20 04:00 70 08/01/20 03:28 99 28 70 08/01/20 03:00 98 18 116/80 (92) 100 08/01/20 02:30 100 22 126/82 (97) 100 08/01/20 02:00 100 24 119/80 (93) 100 08/01/20 01:00 99 19 124/79 (94) 100 08/01/20 00:00 Mechanical Ventilator Mechanical Ventilator 08/01/20 00:00 103 23 120/77 (91) 100 08/01/20 00:00 70 07/31/20 23:30 103 23 129/77 (94) 100 07/31/20 23:18 104 27 70 07/31/20 23:00 103 18 132/77 (95) 100 07/31/20 23:00 21 129/77 Mechanical Ventilator 70 07/31/20 22:30 105 21 120/78 (92) 100 07/31/20 22:00 21 128/80 Mechanical Ventilator 70 07/31/20 22:00 112 25 132/81 (98) 100 07/31/20 21:30 105 25 119/76 (90) 100 07/31/20 21:00 22 135/81 Mechanical Ventilator 70 07/31/20 21:00 105 22 128/76 (93) 100 07/31/20 20:30 104 19 120/79 (93) 100 07/31/20 20:00 Mechanical Ventilator Mechanical Ventilator 07/31/20 20:00 106 22 120/72 (88) 100 07/31/20 20:00 21 112/70 Mechanical Ventilator 70 07/31/20 19:30 106 22 117/81 (93) 100 07/31/20 19:20 112 23 70 07/31/20 19:00 107 33 120/80 (93) 100 07/31/20 19:00 107 33 120/80 (93) 100 07/31/20 18:00 108 21 125/69 (87) 100 07/31/20 18:00 35 131/82 Mechanical Ventilator 70 07/31/20 17:00 27 131/82 Mechanical Ventilator 70 07/31/20 17:00 107 22 131/82 (98) 100 07/31/20 17:00 104 16 131/82 (98) 100 07/31/20 16:30 106 18 126/85 (99) 100 07/31/20 16:00 106 07/31/20 16:00 97.8 107 19 127/79 (95) 100 07/31/20 16:00 28 127/79 Mechanical Ventilator 70 07/31/20 16:00 Mechanical Ventilator Mechanical Ventilator 07/31/20 16:00 70 07/31/20 15:55 110 21 70 07/31/20 15:30 108 17 104/72 (83) 100 07/31/20 15:00 109 20 125/75 (92) 100 07/31/20 15:00 20 125/75 Mechanical Ventilator 70 07/31/20 14:30 111 22 117/71 (86) 100 07/31/20 14:00 117 29 137/82 (100) 87 07/31/20 14:00 31 137/82 Mechanical Ventilator 70 07/31/20 14:00 116 34 137/82 (100) 100 07/31/20 13:46 116 32 126/54 (78) 07/31/20 13:00 28 126/54 70 07/31/20 13:00 116 29 126/54 (78) 87 07/31/20 12:30 109 31 129/82 (98) 100 07/31/20 12:00 104 07/31/20 12:00 70 07/31/20 12:00 117 34 138/63 (88) 100 07/31/20 12:00 27 132/76 Mechanical Ventilator 70 07/31/20 12:00 Mechanical Ventilator Mechanical Ventilator 07/31/20 12:00 98.8 118 40 132/76 (94) 100 07/31/20 11:30 113 34 132/85 (101) 100 07/31/20 11:14 115 32 70 07/31/20 11:00 113 27 134/79 (97) 100 07/31/20 11:00 33 134/79 Mechanical Ventilator 80 07/31/20 10:30 112 28 125/73 (90) 100 07/31/20 10:00 114 29 120/69 (86) 100 07/31/20 10:00 29 120/69 Mechanical Ventilator 80 07/31/20 09:30 108 25 124/66 (85) 100 07/31/20 09:00 109 26 113/83 (93) 100 07/31/20 09:00 26 113/83 Mechanical Ventilator 80 07/31/20 08:30 110 26 126/74 (91) 100 07/31/20 08:00 97.5 106 16 123/74 (90) 99 07/31/20 08:00 16 123/74 Mechanical Ventilator 80 07/31/20 08:00 Mechanical Ventilator Mechanical Ventilator 07/31/20 08:00 100 07/31/20 08:00 109 07/31/20 07:30 110 23 119/73 (88) 99 07/31/20 07:09 104 17 80 07/31/20 07:00 111 21 119/73 (88) 99 07/31/20 07:00 21 119/78 Mechanical Ventilator 100 07/31/20 06:30 98.0 113 44 138/80 (99) 94 07/31/20 06:00 31 129/77 Mechanical Ventilator 45 07/31/20 06:00 110 31 126/79 (95) 98 07/31/20 05:30 122 34 124/67 (86) 97 07/31/20 05:00 29 121/66 Mechanical Ventilator 45 07/31/20 05:00 99.0 120 28 119/66 (83) 97 07/31/20 04:30 128 33 131/76 (94) 99 07/31/20 04:00 126 07/31/20 04:00 Mechanical Ventilator Mechanical Ventilator 07/31/20 04:00 101.0 133 40 141/64 (89) 87 07/31/20 04:00 50 07/31/20 04:00 24 125/84 Mechanical Ventilator 50 07/31/20 03:30 128 44 121/90 (100) 89 07/31/20 03:14 120 47 50 07/31/20 03:00 42 117/96 Mechanical Ventilator 60 07/31/20 03:00 122 47 149/97 (114) 88 07/31/20 02:30 113 38 117/78 (91) 98 07/31/20 02:00 111 43 120/80 (93) 98 07/31/20 02:00 42 117/96 Mechanical Ventilator 70 07/31/20 01:45 110 42 113/76 (88) 99 07/31/20 01:45 45 140/63 Mechanical Ventilator 60 07/31/20 01:30 109 42 109/73 (85) 99 07/31/20 01:30 45 140/62 Mechanical Ventilator 60 07/31/20 01:15 43 120/65 Mechanical Ventilator 60 07/31/20 01:00 108 38 113/68 (83) 98 07/31/20 01:00 43 110/65 Mechanical Ventilator 50 07/31/20 00:30 108 101/60 (74) 07/31/20 00:00 126 07/31/20 00:00 99.4 104 25 100/59 (73) 100 07/31/20 00:00 Mechanical Ventilator Mechanical Ventilator 07/31/20 00:00 43 110/65 Mechanical Ventilator 50 07/31/20 00:00 45 07/30/20 23:30 104 29 102/62 (75) 100 07/30/20 23:27 104 24 55 07/30/20 23:00 105 28 111/57 (75) 100 07/30/20 23:00 27 105/65 Mechanical Ventilator 45 07/30/20 22:45 107 21 105/64 (78) 100 07/30/20 22:30 107 23 101/78 (86) 100 07/30/20 22:15 109 27 100/68 (79) 99 07/30/20 22:00 110 19 101/66 (78) 99 07/30/20 22:00 27 100/68 Mechanical Ventilator 45 07/30/20 21:45 110 34 106/63 (77) 100 07/30/20 21:30 110 39 104/63 (77) 100 07/30/20 21:00 106 24 120/73 (89) 100 07/30/20 21:00 23 113/73 Mechanical Ventilator 45 07/30/20 20:30 107 23 125/79 (94) 100 07/30/20 20:00 45 07/30/20 20:00 109 07/30/20 20:00 33 126/74 Mechanical Ventilator 45 07/30/20 20:00 Mechanical Ventilator Mechanical Ventilator 07/30/20 20:00 99.4 112 34 127/69 (88) 90 07/30/20 19:30 112 41 55 07/30/20 19:30 114 33 120/77 (91) 84 07/30/20 19:00 27 114/60 Mechanical Ventilator 45 07/30/20 18:30 107 46 114/75 (88) 98 07/30/20 18:00 101 18 118/67 (84) 99 07/30/20 18:00 30 118/67 Mechanical Ventilator 45 07/30/20 17:30 106 41 111/65 (80) 95 07/30/20 17:00 33 111/65 40 07/30/20 17:00 104 36 111/68 (82) 92 07/30/20 16:00 106 07/30/20 16:00 45 07/30/20 16:00 98.8 104 32 106/68 (81) 100 07/30/20 16:00 33 106/68 Mechanical Ventilator 45 07/30/20 16:00 Mechanical Ventilator Mechanical Ventilator 07/30/20 15:30 107 36 78/41 (53) 98 07/30/20 15:15 107 29 92/64 (73) 99 07/30/20 15:00 107 27 89/56 (67) 100 07/30/20 15:00 105 42 45 07/30/20 15:00 31 92/64 Mechanical Ventilator 45 07/30/20 14:30 109 35 96/60 (72) 100 07/30/20 14:30 31 92/64 Mechanical Ventilator 45 07/30/20 14:00 33 91/58 Mechanical Ventilator 45 07/30/20 14:00 33 91/58 Mechanical Ventilator 45 07/30/20 14:00 114 31 91/58 (69) 100 07/30/20 13:30 115 30 96/54 (68) 100 07/30/20 13:00 115 33 104/59 (74) 99 07/30/20 13:00 28 104/59 Mechanical Ventilator 45 07/30/20 13:00 28 104/59 Mechanical Ventilator 45 07/30/20 12:15 113 28 104/58 (73) 100 07/30/20 12:00 113 07/30/20 12:00 45 07/30/20 12:00 28 104/58 Mechanical Ventilator 45 07/30/20 12:00 32 104/58 Mechanical Ventilator 45 07/30/20 12:00 98.7 115 25 93/56 (68) 99 07/30/20 12:00 Mechanical Ventilator Mechanical Ventilator 07/30/20 11:45 114 35 96/52 (67) 97 07/30/20 11:30 117 35 85/55 (65) 96 07/30/20 11:19 100 31 55 07/30/20 11:00 116 32 94/53 (67) 100 07/30/20 11:00 32 94/53 Mechanical Ventilator 45 07/30/20 11:00 32 94/53 Mechanical Ventilator 45 07/30/20 11:00 117 28 98/47 (64) 96 07/30/20 10:30 117 30 96/56 (69) 100 07/30/20 10:00 28 104/56 Mechanical Ventilator 55 07/30/20 10:00 28 104/56 Mechanical Ventilator 55 07/30/20 10:00 115 28 104/56 (72) 100 07/30/20 09:30 115 30 103/58 (73) 100 07/30/20 09:00 115 30 115/66 (82) 100 07/30/20 09:00 36 115/56 Mechanical Ventilator 55 07/30/20 09:00 36 115/66 Mechanical Ventilator 55 07/30/20 08:30 114 36 114/63 (80) 99 07/30/20 08:00 98.4 40 100/67 (78) 100 07/30/20 08:00 114 07/30/20 08:00 40 100/67 Mechanical Ventilator 55 07/30/20 08:00 40 100/67 Mechanical Ventilator 55 07/30/20 08:00 60 07/30/20 08:00 Mechanical Ventilator Mechanical Ventilator 07/30/20 07:30 112 28 103/64 (77) 100 07/30/20 07:20 100 32 55 07/30/20 07:00 28 103/64 Mechanical Ventilator 60 07/30/20 07:00 28 103/64 Mechanical Ventilator 60 07/30/20 07:00 115 27 118/65 (82) 99 07/30/20 06:15 119 25 108/78 (88) 100 Intake and Output 07/31/20 08/01/20 19:00 07:00 Intake Total 615 ml 260 ml Output Total 685 ml Balance -70 ml 260 ml IV Total 315 ml 185 ml Tube Feeding 300 ml 75 ml Output Urine Total 595 ml Emesis 90 ml Chest Tube Drainage Total 0 ml # Bowel Movements 2 Labs Test 07/30/20 03:30 07/31/20 03:35 07/31/20 14:15 08/01/20 04:45 White Blood Count 13.0 K/UL (4.8-10.8) 23.8 K/UL (4.8-10.8) 9.7 K/UL (4.8-10.8) Red Blood Count 3.00 M/UL (4.20-5.40) 3.06 M/UL (4.20-5.40) 2.90 M/UL (4.20-5.40) Hemoglobin 8.5 G/DL (12.0-16.0) 8.8 G/DL (12.0-16.0) 8.4 G/DL (12.0-16.0) Hematocrit 28.4 % (37.0-47.0) 29.3 % (37.0-47.0) 27.8 % (37.0-47.0) Mean Corpuscular Volume 95 FL (80-99) 96 FL (80-99) 96 FL (80-99) Mean Corpuscular Hemoglobin 28.2 PG (27.0-31.0) 28.8 PG (27.0-31.0) 28.8 PG (27.0-31.0) Mean Corpuscular Hemoglobin Concent 29.8 G/DL (32.0-36.0) 30.1 G/DL (32.0-36.0) 30.0 G/DL (32.0-36.0) Red Cell Distribution Width 17.8 % (11.6-14.8) 18.2 % (11.6-14.8) 18.2 % (11.6-14.8) Platelet Count 266 K/UL (150-450) 345 K/UL (150-450) 215 K/UL (150-450) Mean Platelet Volume 7.5 FL (6.5-10.1) 7.2 FL (6.5-10.1) 8.0 FL (6.5-10.1) Neutrophils (%) (Auto) 68.2 % (45.0-75.0) % (45.0-75.0) 78.2 % (45.0-75.0) Lymphocytes (%) (Auto) 19.7 % (20.0-45.0) % (20.0-45.0) 13.3 % (20.0-45.0) Monocytes (%) (Auto) 6.7 % (1.0-10.0) % (1.0-10.0) 6.9 % (1.0-10.0) Eosinophils (%) (Auto) 4.8 % (0.0-3.0) % (0.0-3.0) 1.0 % (0.0-3.0) Basophils (%) (Auto) 0.6 % (0.0-2.0) % (0.0-2.0) 0.6 % (0.0-2.0) Prothrombin Time 12.5 SEC (9.30-11.50) Prothromb Time International Ratio 1.1 (0.9-1.1) Activated Partial Thromboplast Time 33 SEC (23-33) Sodium Level 144 MMOL/L (136-145) 142 MMOL/L (136-145) 143 MMOL/L (136-145) Potassium Level 4.8 MMOL/L (3.5-5.1) 4.4 MMOL/L (3.5-5.1) 4.7 MMOL/L (3.5-5.1) Chloride Level 103 MMOL/L (98-107) 100 MMOL/L (98-107) 101 MMOL/L (98-107) Carbon Dioxide Level 40 MMOL/L (21-32) 39 MMOL/L (21-32) 40 MMOL/L (21-32) Anion Gap -1 mmol/L (5-15) 3 mmol/L (5-15) 1 mmol/L (5-15) Blood Urea Nitrogen 4 mg/dL (7-18) 5 mg/dL (7-18) 2 mg/dL (7-18) Creatinine 0.5 MG/DL (0.55-1.30) 0.4 MG/DL (0.55-1.30) 0.5 MG/DL (0.55-1.30) Estimat Glomerular Filtration Rate > 60 mL/min (>60) > 60 mL/min (>60) > 60 mL/min (>60) Glucose Level 121 MG/DL (74-106) 172 MG/DL (74-106) 131 MG/DL (74-106) Calcium Level 8.1 MG/DL (8.5-10.1) 8.3 MG/DL (8.5-10.1) 8.1 MG/DL (8.5-10.1) Total Bilirubin 0.4 MG/DL (0.2-1.0) 0.7 MG/DL (0.2-1.0) Aspartate Amino Transf (AST/SGOT) 21 U/L (15-37) 25 U/L (15-37) Alanine Aminotransferase (ALT/SGPT) 18 U/L (12-78) 13 U/L (12-78) Alkaline Phosphatase 72 U/L (46-116) 82 U/L (46-116) Total Protein 6.5 G/DL (6.4-8.2) 7.0 G/DL (6.4-8.2) Albumin 2.2 G/DL (3.4-5.0) 2.4 G/DL (3.4-5.0) Globulin 4.3 g/dL 4.6 g/dL Albumin/Globulin Ratio 0.5 (1.0-2.7) 0.5 (1.0-2.7) Differential Total Cells Counted 100 Neutrophils % (Manual) 80 % (45-75) Lymphocytes % (Manual) 11 % (20-45) Monocytes % (Manual) 7 % (1-10) Eosinophils % (Manual) 2 % (0-3) Basophils % (Manual) 0 % (0-2) Band Neutrophils 0 % (0-8) Platelet Estimate Adequate Platelet Morphology Normal Hypochromasia 1+ Anisocytosis 1+ Urine Color [place] Urine Appearance Cloudy Urine pH 6 (4.5-8.0) Urine Specific [place] 1.015 (1.005-1.035) Urine Protein 3+ (NEGATIVE) Urine Glucose (UA) Negative (NEGATIVE) Urine Ketones 1+ (NEGATIVE) Urine Blood 5+ (NEGATIVE) Urine Nitrite Positive (NEGATIVE) Urine Bilirubin Negative (NEGATIVE) Urine Urobilinogen 1 MG/DL (0.0-1.0) Urine Leukocyte Esterase 3+ (NEGATIVE) Urine RBC Tntc /HPF (0 - 2) Urine WBC 10-15 /HPF (0 - 2) Urine Squamous Epithelial Cells None /LPF (NONE/OCC) Urine Bacteria Moderate /HPF (NONE) Micro Microbiology Date/Time Source Procedure Growth Status 07/31/20 14:15 Urine,Clean Catch Urine Culture - Preliminary NO GROWTH Resulted 07/31/20 14:15 Urine,Clean Catch Urine Culture - Preliminary NO GROWTH Resulted Height (Feet): 5 Height (Inches): 5.00 Weight (Pounds): 223 Objective GeNL: nv HEENT: ngt++ Pulm: vent/trach++ CV: rrr Abd: soft, nt, nd ++gt Ext: no cce Myron Condon MD Aug 01, 2020 06:09
[2020-08-01] MEDS: Vancomycin 1.25gm Premix q24h IVPB SCH ×2 (06:12→17:23)
[2020-08-01] MEDS: Midodrine 10mg tab GT SCH ×3 (06:13→20:50)
[2020-08-01] MEDS: fentaNYL 2500mcg/NS 250ml 250 ML IV PRN (08:00)
[2020-08-01] MEDS: Docusate 100mg/10ml Liq NG SCH (08:34)
[2020-08-01] MEDS: Enoxaparin 120 mg inj SUBQ SCH ×2 (08:40→21:00)
--- NOTE | 2020-08-01 09:25 | Pulmonology Progress Note ---
Subjective ROS Limited/Unobtainable: Yes Interval Events: Chest tube removed (07/29), reinserted (07/30) Constitutional: Reports: fever, other - resolved HEENT: Repors: no symptoms Respiratory: Reports: no symptoms Cardiovascular: Reports: no symptoms Gastrointestinal/Abdominal: Reports: vomiting Genitourinary: Reports: no symptoms Allergies: Coded Allergies: No Known Allergies (Unverified , 05/28/20) All Systems: reviewed and negative except above Objective Last 24 Hour Vital Signs Date Time Temp Pulse Resp B/P (MAP) Pulse Ox O2 Delivery O2 Flow Rate FiO2 08/01/20 08:00 28 110/61 Mechanical Ventilator 70 08/01/20 07:30 99 28 112/66 (81) 100 08/01/20 07:00 97 25 114/68 (83) 100 08/01/20 06:30 100 31 118/76 (90) 100 08/01/20 06:00 100 23 112/74 (87) 100 08/01/20 05:00 101 33 111/88 (96) 100 08/01/20 04:00 101 08/01/20 04:00 Mechanical Ventilator Mechanical Ventilator 08/01/20 04:00 102 29 128/84 (99) 100 08/01/20 04:00 70 08/01/20 03:28 99 28 70 08/01/20 03:00 98 18 116/80 (92) 100 08/01/20 02:30 100 22 126/82 (97) 100 08/01/20 02:00 100 24 119/80 (93) 100 08/01/20 01:00 99 19 124/79 (94) 100 08/01/20 00:00 Mechanical Ventilator Mechanical Ventilator 08/01/20 00:00 103 23 120/77 (91) 100 08/01/20 00:00 101 08/01/20 00:00 70 07/31/20 23:30 103 23 129/77 (94) 100 07/31/20 23:18 104 27 70 07/31/20 23:00 103 18 132/77 (95) 100 07/31/20 23:00 21 129/77 Mechanical Ventilator 70 07/31/20 22:30 105 21 120/78 (92) 100 07/31/20 22:00 21 128/80 Mechanical Ventilator 70 07/31/20 22:00 112 25 132/81 (98) 100 07/31/20 21:30 105 25 119/76 (90) 100 07/31/20 21:00 22 135/81 Mechanical Ventilator 70 07/31/20 21:00 105 22 128/76 (93) 100 07/31/20 20:30 104 19 120/79 (93) 100 07/31/20 20:00 Mechanical Ventilator Mechanical Ventilator 07/31/20 20:00 106 22 120/72 (88) 100 07/31/20 20:00 21 112/70 Mechanical Ventilator 70 07/31/20 19:30 106 22 117/81 (93) 100 07/31/20 19:20 112 23 70 07/31/20 19:00 107 33 120/80 (93) 100 07/31/20 19:00 107 33 120/80 (93) 100 07/31/20 18:00 108 21 125/69 (87) 100 07/31/20 18:00 35 131/82 Mechanical Ventilator 70 07/31/20 17:00 27 131/82 Mechanical Ventilator 70 07/31/20 17:00 107 22 131/82 (98) 100 07/31/20 17:00 104 16 131/82 (98) 100 07/31/20 16:30 106 18 126/85 (99) 100 07/31/20 16:00 106 07/31/20 16:00 97.8 107 19 127/79 (95) 100 07/31/20 16:00 28 127/79 Mechanical Ventilator 70 07/31/20 16:00 Mechanical Ventilator Mechanical Ventilator 07/31/20 16:00 70 07/31/20 15:55 110 21 70 07/31/20 15:30 108 17 104/72 (83) 100 07/31/20 15:00 109 20 125/75 (92) 100 07/31/20 15:00 20 125/75 Mechanical Ventilator 70 07/31/20 14:30 111 22 117/71 (86) 100 07/31/20 14:00 117 29 137/82 (100) 87 07/31/20 14:00 31 137/82 Mechanical Ventilator 70 07/31/20 14:00 116 34 137/82 (100) 100 07/31/20 13:46 116 32 126/54 (78) 07/31/20 13:00 28 126/54 70 07/31/20 13:00 116 29 126/54 (78) 87 07/31/20 12:30 109 31 129/82 (98) 100 07/31/20 12:00 104 07/31/20 12:00 70 07/31/20 12:00 117 34 138/63 (88) 100 07/31/20 12:00 27 132/76 Mechanical Ventilator 70 07/31/20 12:00 Mechanical Ventilator Mechanical Ventilator 07/31/20 12:00 98.8 118 40 132/76 (94) 100 07/31/20 11:30 113 34 132/85 (101) 100 07/31/20 11:14 115 32 70 07/31/20 11:00 113 27 134/79 (97) 100 07/31/20 11:00 33 134/79 Mechanical Ventilator 80 07/31/20 10:30 112 28 125/73 (90) 100 07/31/20 10:00 114 29 120/69 (86) 100 07/31/20 10:00 29 120/69 Mechanical Ventilator 80 07/31/20 09:30 108 25 124/66 (85) 100 Intake and Output 07/31/20 08/01/20 19:00 07:00 Intake Total 615 ml 380 ml Output Total 685 ml 200 ml Balance -70 ml 180 ml IV Total 315 ml 305 ml Tube Feeding 300 ml 75 ml Output Urine Total 595 ml 200 ml Emesis 90 ml Chest Tube Drainage Total 0 ml # Bowel Movements 2 General Appearance: no acute distress HEENT: normocephalic, status post trach Respiratory: chest wall non-tender Cardiovascular: normal peripheral pulses Abdomen: normal bowel sounds, other - s/p PEG Microbiology Date/Time Source Procedure Growth Status 07/31/20 14:15 Urine,Clean Catch Urine Culture - Preliminary NO GROWTH Resulted 07/31/20 14:15 Urine,Clean Catch Urine Culture - Preliminary NO GROWTH Resulted Laboratory Tests 07/31/20 14:15: Urine Color [place], Urine Appearance Cloudy, Urine pH 6, Urine Specific [place] 1.015, Urine Protein 3+H, Urine Glucose (UA) Negative, Urine Ketones 1+H, Urine Blood 5+H, Urine Nitrite PositiveH, Urine Bilirubin Negative, Urine Urobilinogen 1H, Urine Leukocyte Esterase 3+H, Urine RBC TntcH, Urine WBC 10-15H, Urine Squamous Epithelial Cells None, Urine Bacteria ModerateH 08/01/20 04:45: White Blood Count 9.7#, Red Blood Count 2.90L, Hemoglobin 8.4L, Hematocrit 27.8L , Mean Corpuscular Volume 96, Mean Corpuscular Hemoglobin 28.8, Mean Corpuscular Hemoglobin Concent 30.0L, Red Cell Distribution Width 18.2H, Platelet Count 215, Mean Platelet Volume 8.0, Neutrophils (%) (Auto) 78.2H, Lymphocytes (%) (Auto) 13.3L, Monocytes (%) (Auto) 6.9, Eosinophils (%) (Auto) 1.0, Basophils (%) (Auto) 0.6, Sodium Level 143, Potassium Level 4.7, Chloride Level 101, Carbon Dioxide Level 40H, Anion Gap 1L, Blood Urea Nitrogen 2L, Creatinine 0.5L, Estimat Glomerular Filtration Rate > 60, Glucose Level 131H, Calcium Level 8.1L Current Medications Medications (Trade) Dose Ordered Sig/Zelda Route PRN Reason Start Time Stop Time Status Last Admin Dose Admin Acetaminophen (Tylenol) 650 mg Q4H PRN NG Temp >100.5 07/27/20 03:45 08/26/20 03:44 07/29/20 20:24 Calcitonin [place] (Miacalcin) 1 sprays DAILY NASAL 07/22/20 14:00 10/20/20 13:59 08/01/20 08:35 Chlorhexidine Gluconate (Inna-Hex 2%) 1 applic DAILY@2000 TOPIC 07/20/20 20:00 10/18/20 19:59 07/31/20 20:16 Dextrose (Dextrose 50%) 25 ml Q30M PRN IV Hypoglycemia 06/05/20 10:45 09/03/20 10:44 Dextrose (Dextrose 50%) 50 ml Q30M PRN IV Hypoglycemia 06/05/20 10:45 09/03/20 10:44 Docusate Sodium (Colace) 100 mg TWICE A DAY NG 07/26/20 18:00 08/25/20 17:59 08/01/20 08:34 Enoxaparin Sodium (Lovenox) 110 mg EVERY 12 HOURS SUBQ 07/17/20 21:00 10/15/20 20:59 08/01/20 08:40 Fentanyl Citrate 250 ml @ 0 mls/hr Q24H PRN IV . 07/31/20 12:00 08/02/20 11:59 08/01/20 08:00 Guaifenesin/ Codeine Phosphate (Robitussin with codeine) 5 ml Q6H PRN NG For Cough 07/14/20 14:15 08/13/20 14:14 07/18/20 21:44 Lansoprazole (Prevacid) 30 mg DAILY GT 07/18/20 09:00 08/09/20 08:59 08/01/20 08:34 Meropenem 1 gm/ Sodium Chloride 55 ml @ 110 mls/hr Q8H IVPB 07/22/20 12:00 08/02/20 11:59 08/01/20 03:21 Midazolam HCl 200 ml @ 0 mls/hr Q24H PRN IV SEDATION 07/29/20 14:15 08/05/20 14:14 07/30/20 00:37 Midodrine (Pro-Amatine) 10 mg Q8HR GT 06/30/20 14:00 09/12/20 13:59 08/01/20 06:13 Ondansetron HCl (Zofran) 4 mg EVERY 8 HOURS IVP 07/31/20 14:00 08/30/20 13:59 08/01/20 06:13 Polyethylene Glycol (Miralax) 17 gm BEDTIME ORAL 07/26/20 21:00 08/25/20 20:59 07/31/20 20:16 Quetiapine Fumarate (SEROqueL) 50 mg Q8HR GT 07/31/20 14:00 08/30/20 13:59 08/01/20 06:13 Vancomycin HCl 250 ml @ 166.667 mls/hr Q12H IVPB 08/01/20 05:00 08/06/20 04:59 08/01/20 06:12 Vancomycin HCl (Vanco pharmacy to dose) 1 ea DAILY PRN MISC Per rx protocol 07/31/20 11:45 08/30/20 11:44 Assessment/Plan Assessment/Plan 1. COVID-19 pneumonia -Intubated 05/28/20 -s/p solumedrol, Rocephin -Continue PEEP 6 ->7 ->5 - Peak airway pressures better - FiO2 100% -> 90 ->80->60 ->40 ->80 ->100 ->70 ->60 -> 50 ->45 ->40 ->50 ->40-> 80 -> 70%; PEEP 7 ->5 - s/p PEG - Sputum Cx pseudo -> on meropenem per ID 2. Hyponatremia -Per primary MD 3. Elevated inflammatory markers - has high D dimer; On Lovenox -> Lovenox held given anemia 4. DVT of the right calf - once stable, consider IVC filter per heme vs oral DOAC - was on Lovenox but held given anemia 5. Decreased PEEP S/p trach Reported cuff leak per RN/RT Changed 07/22/20 however still has cuff leak 6. Leukocytosis; now WBC wnl - ID following - BCx, UCx, and Sp Cx 7. Pulmonary edema - Will start Lasix 40 mg IV Q12h On low dose Levophed; will attempt to wean off Will wean off IV sedation; started Seroquel, now TID s/p PEG Required R CT due to PTX 07/22/20 - CT removed (07/29) ->however, f/u CXR shows PTX with tracheal deviation. CT reinserted (07/30) Hold weaning for now The care of this patient was discussed with my supervising physician Time spent for this encounter was approximately 31 minutes Vamshi Garcia Aug 01, 2020 09:25
--- NOTE | 2020-08-01 10:14 | Infectious Diseases Prog Note ---
Assessment/Plan Assessment/Plan A 1. COVID19 pneumonia 2. Hypoxic respiratory failure 3. Morbid obesity 4. DM type 2 5. Thrombocytopenia 6. leukocytosis resolved 7. Pseudomonas pneumonia 8. Anemia 9. VDRF 10. Cardiac arrest 11. UTI 12. Right pneumothorax 13 Gastrostomy status 14, hematuria P 1. Finished remdesivir course 2. Finished steroid course 3.Continue Meropenem & Vancomycin Subjective ROS Limited/Unobtainable: Yes Constitutional: Denies: fever Genitourinary: Reports: hematuria Allergies: Coded Allergies: No Known Allergies (Unverified , 05/28/20) Objective Last 24 Hour Vital Signs Date Time Temp Pulse Resp B/P (MAP) Pulse Ox O2 Delivery O2 Flow Rate FiO2 08/01/20 08:00 28 110/61 Mechanical Ventilator 70 08/01/20 07:30 99 28 112/66 (81) 100 08/01/20 07:22 95 21 70 08/01/20 07:00 97 25 114/68 (83) 100 08/01/20 06:30 100 31 118/76 (90) 100 08/01/20 06:00 100 23 112/74 (87) 100 08/01/20 05:00 101 33 111/88 (96) 100 08/01/20 04:00 101 08/01/20 04:00 Mechanical Ventilator Mechanical Ventilator 08/01/20 04:00 102 29 128/84 (99) 100 08/01/20 04:00 70 08/01/20 03:28 99 28 70 08/01/20 03:00 98 18 116/80 (92) 100 08/01/20 02:30 100 22 126/82 (97) 100 08/01/20 02:00 100 24 119/80 (93) 100 08/01/20 01:00 99 19 124/79 (94) 100 08/01/20 00:00 Mechanical Ventilator Mechanical Ventilator 08/01/20 00:00 103 23 120/77 (91) 100 08/01/20 00:00 101 08/01/20 00:00 70 07/31/20 23:30 103 23 129/77 (94) 100 07/31/20 23:18 104 27 70 07/31/20 23:00 103 18 132/77 (95) 100 07/31/20 23:00 21 129/77 Mechanical Ventilator 70 07/31/20 22:30 105 21 120/78 (92) 100 07/31/20 22:00 21 128/80 Mechanical Ventilator 70 07/31/20 22:00 112 25 132/81 (98) 100 07/31/20 21:30 105 25 119/76 (90) 100 07/31/20 21:00 22 135/81 Mechanical Ventilator 70 07/31/20 21:00 105 22 128/76 (93) 100 07/31/20 20:30 104 19 120/79 (93) 100 07/31/20 20:00 Mechanical Ventilator Mechanical Ventilator 07/31/20 20:00 106 22 120/72 (88) 100 07/31/20 20:00 21 112/70 Mechanical Ventilator 70 07/31/20 19:30 106 22 117/81 (93) 100 07/31/20 19:20 112 23 70 07/31/20 19:00 107 33 120/80 (93) 100 07/31/20 19:00 107 33 120/80 (93) 100 07/31/20 18:00 108 21 125/69 (87) 100 07/31/20 18:00 35 131/82 Mechanical Ventilator 70 07/31/20 17:00 27 131/82 Mechanical Ventilator 70 07/31/20 17:00 107 22 131/82 (98) 100 07/31/20 17:00 104 16 131/82 (98) 100 07/31/20 16:30 106 18 126/85 (99) 100 07/31/20 16:00 106 07/31/20 16:00 97.8 107 19 127/79 (95) 100 07/31/20 16:00 28 127/79 Mechanical Ventilator 70 07/31/20 16:00 Mechanical Ventilator Mechanical Ventilator 07/31/20 16:00 70 07/31/20 15:55 110 21 70 07/31/20 15:30 108 17 104/72 (83) 100 07/31/20 15:00 109 20 125/75 (92) 100 07/31/20 15:00 20 125/75 Mechanical Ventilator 70 07/31/20 14:30 111 22 117/71 (86) 100 07/31/20 14:00 117 29 137/82 (100) 87 07/31/20 14:00 31 137/82 Mechanical Ventilator 70 07/31/20 14:00 116 34 137/82 (100) 100 07/31/20 13:46 116 32 126/54 (78) 07/31/20 13:00 28 126/54 70 07/31/20 13:00 116 29 126/54 (78) 87 07/31/20 12:30 109 31 129/82 (98) 100 07/31/20 12:00 104 07/31/20 12:00 70 07/31/20 12:00 117 34 138/63 (88) 100 07/31/20 12:00 27 132/76 Mechanical Ventilator 70 07/31/20 12:00 Mechanical Ventilator Mechanical Ventilator 07/31/20 12:00 98.8 118 40 132/76 (94) 100 07/31/20 11:30 113 34 132/85 (101) 100 07/31/20 11:14 115 32 70 07/31/20 11:00 113 27 134/79 (97) 100 07/31/20 11:00 33 134/79 Mechanical Ventilator 80 07/31/20 10:30 112 28 125/73 (90) 100 Height (Feet): 5 Height (Inches): 5.00 Weight (Pounds): 223 HEENT: status post trach Respiratory/Chest: other - on ventilator, FIO2=70%, R chest tube Cardiovascular: tachycardia, other - left arm PICC line Abdomen: soft, non tender, other - GT feeding Genitourinary: other - Lennon catheter, hematuria Extremities: other - generalized edema Neurologic/Psychiatric: other - sedated Microbiology Date/Time Source Procedure Growth Status 07/31/20 14:15 Urine,Clean Catch Urine Culture - Preliminary NO GROWTH Resulted 07/31/20 14:15 Urine,Clean Catch Urine Culture - Preliminary NO GROWTH Resulted Laboratory Tests Test 07/31/20 14:15 08/01/20 04:45 Urine Color [place] Urine Appearance Cloudy Urine pH 6 (4.5-8.0) Urine Specific [place] 1.015 (1.005-1.035) Urine Protein 3+ (NEGATIVE) H Urine Glucose (UA) Negative (NEGATIVE) Urine Ketones 1+ (NEGATIVE) H Urine Blood 5+ (NEGATIVE) H Urine Nitrite Positive (NEGATIVE) H Urine Bilirubin Negative (NEGATIVE) Urine Urobilinogen 1 MG/DL (0.0-1.0) H Urine Leukocyte Esterase 3+ (NEGATIVE) H Urine RBC Tntc /HPF (0 - 2) H Urine WBC 10-15 /HPF (0 - 2) H Urine Squamous Epithelial Cells None /LPF (NONE/OCC) Urine Bacteria Moderate /HPF (NONE) H White Blood Count 9.7 K/UL (4.8-10.8) # Red Blood Count 2.90 M/UL (4.20-5.40) L Hemoglobin 8.4 G/DL (12.0-16.0) L Hematocrit 27.8 % (37.0-47.0) L Mean Corpuscular Volume 96 FL (80-99) Mean Corpuscular Hemoglobin 28.8 PG (27.0-31.0) Mean Corpuscular Hemoglobin Concent 30.0 G/DL (32.0-36.0) L Red Cell Distribution Width 18.2 % (11.6-14.8) H Platelet Count 215 K/UL (150-450) Mean Platelet Volume 8.0 FL (6.5-10.1) Neutrophils (%) (Auto) 78.2 % (45.0-75.0) H Lymphocytes (%) (Auto) 13.3 % (20.0-45.0) L Monocytes (%) (Auto) 6.9 % (1.0-10.0) Eosinophils (%) (Auto) 1.0 % (0.0-3.0) Basophils (%) (Auto) 0.6 % (0.0-2.0) Sodium Level 143 MMOL/L (136-145) Potassium Level 4.7 MMOL/L (3.5-5.1) Chloride Level 101 MMOL/L (98-107) Carbon Dioxide Level 40 MMOL/L (21-32) H Anion Gap 1 mmol/L (5-15) L Blood Urea Nitrogen 2 mg/dL (7-18) L Creatinine 0.5 MG/DL (0.55-1.30) L Estimat Glomerular Filtration Rate > 60 mL/min (>60) Glucose Level 131 MG/DL (74-106) H Calcium Level 8.1 MG/DL (8.5-10.1) L Current Medications Medications (Trade) Dose Ordered Sig/Zelda Route PRN Reason Start Time Stop Time Status Last Admin Dose Admin Acetaminophen (Tylenol) 650 mg Q4H PRN NG Temp >100.5 07/27/20 03:45 4/5/21 03:44 07/29/20 20:24 Calcitonin [place] (Miacalcin) 1 sprays DAILY NASAL 07/22/20 14:00 10/20/20 13:59 08/01/20 08:35 Chlorhexidine Gluconate (Inna-Hex 2%) 1 applic DAILY@2000 TOPIC 07/20/20 20:00 10/18/20 19:59 07/31/20 20:16 Dextrose (Dextrose 50%) 25 ml Q30M PRN IV Hypoglycemia 06/05/20 10:45 09/03/20 10:44 Dextrose (Dextrose 50%) 50 ml Q30M PRN IV Hypoglycemia 06/05/20 10:45 09/03/20 10:44 Docusate Sodium (Colace) 100 mg TWICE A DAY NG 07/26/20 18:00 08/25/20 17:59 08/01/20 08:34 Enoxaparin Sodium (Lovenox) 110 mg EVERY 12 HOURS SUBQ 07/17/20 21:00 10/15/20 20:59 08/01/20 08:40 Fentanyl Citrate 250 ml @ 0 mls/hr Q24H PRN IV . 07/31/20 12:00 08/02/20 11:59 08/01/20 08:00 Guaifenesin/ Codeine Phosphate (Robitussin with codeine) 5 ml Q6H PRN NG For Cough 07/14/20 14:15 08/13/20 14:14 07/18/20 21:44 Lansoprazole (Prevacid) 30 mg DAILY GT 07/18/20 09:00 08/09/20 08:59 08/01/20 08:34 Meropenem 1 gm/ Sodium Chloride 55 ml @ 110 mls/hr Q8H IVPB 07/22/20 12:00 08/02/20 11:59 08/01/20 03:21 Midazolam HCl 200 ml @ 0 mls/hr Q24H PRN IV SEDATION 07/29/20 14:15 08/05/20 14:14 07/30/20 00:37 Midodrine (Pro-Amatine) 10 mg Q8HR GT 06/30/20 14:00 09/12/20 13:59 08/01/20 06:13 Ondansetron HCl (Zofran) 4 mg EVERY 8 HOURS IVP 07/31/20 14:00 08/30/20 13:59 08/01/20 06:13 Polyethylene Glycol (Miralax) 17 gm BEDTIME ORAL 07/26/20 21:00 08/25/20 20:59 07/31/20 20:16 Quetiapine Fumarate (SEROqueL) 50 mg Q8HR GT 07/31/20 14:00 08/30/20 13:59 08/01/20 06:13 Vancomycin HCl 250 ml @ 166.667 mls/hr Q12H IVPB 08/01/20 05:00 08/06/20 04:59 08/01/20 06:12 Vancomycin HCl (Vanco pharmacy to dose) 1 ea DAILY PRN MISC Per rx protocol 07/31/20 11:45 08/30/20 11:44 Colt Arana MD Aug 01, 2020 10:14
--- NOTE | 2020-08-01 10:43 | Cardiac Electrophysiology PN ---
Assessment/Plan Assessment/Plan 1. Respiratory failure due to COVID-19 pneumonia. On tracheostomy on 70 % Fio2. Trach exchanged 07/22/[address] Devine Echo EF 60% 2. S/P Code x2 with hypotension and sammy arrest on 07/22/20 likely due to Pneumothorax. HR stable 3. Right Pneumothorax, S/P chest tube placement. Removed 07/29/20 Thoravent palced 07/30/20 4. Hypotension, on midodrine 10 mg 3 times daily and off pressors 5. Dysphagia. S/P PEG 07/24/20 6. Right lower extremity DVT. Follow up by Hematology. 7. Severe anemia, S/P PRBC DW RN and Dr Tyler Subjective Subjective Coded twice for hypotension and bradycardia while on the Vent about 20 minutes after tracheostomy was changed 07/22/20 Found to have Right Pneumothorax and underwent Right chest tube placement by Dr. Devine S/P PRBC. S/P PEG 07/24/20. Chest tube removed 07/29/20 New Thora vent was placed by Dr Devine 07/30/20 In ICU on the Vent on 70 % Fio2 and PEEP 5 now In SR. Off pressors Objective Last 24 Hour Vital Signs Date Time Temp Pulse Resp B/P (MAP) Pulse Ox O2 Delivery O2 Flow Rate FiO2 08/01/20 10:30 92 27 115/66 (82) 100 08/01/20 10:00 93 33 116/63 (80) 100 08/01/20 09:30 93 24 110/68 (82) 100 08/01/20 09:00 95 21 108/49 (68) 100 08/01/20 08:30 96 27 110/74 (86) 100 08/01/20 08:00 70 08/01/20 08:00 28 110/61 Mechanical Ventilator 70 08/01/20 08:00 97.5 96 37 105/65 (78) 100 08/01/20 07:30 99 28 112/66 (81) 100 08/01/20 07:22 95 21 70 08/01/20 07:00 97 25 114/68 (83) 100 08/01/20 06:30 100 31 118/76 (90) 100 08/01/20 06:00 100 23 112/74 (87) 100 08/01/20 05:00 101 33 111/88 (96) 100 08/01/20 04:00 101 08/01/20 04:00 Mechanical Ventilator Mechanical Ventilator 08/01/20 04:00 102 29 128/84 (99) 100 08/01/20 04:00 70 08/01/20 03:28 99 28 70 08/01/20 03:00 98 18 116/80 (92) 100 08/01/20 02:30 100 22 126/82 (97) 100 08/01/20 02:00 100 24 119/80 (93) 100 08/01/20 01:00 99 19 124/79 (94) 100 08/01/20 00:00 Mechanical Ventilator Mechanical Ventilator 08/01/20 00:00 103 23 120/77 (91) 100 08/01/20 00:00 101 08/01/20 00:00 70 07/31/20 23:30 103 23 129/77 (94) 100 07/31/20 23:18 104 27 70 07/31/20 23:00 103 18 132/77 (95) 100 07/31/20 23:00 21 129/77 Mechanical Ventilator 70 07/31/20 22:30 105 21 120/78 (92) 100 07/31/20 22:00 21 128/80 Mechanical Ventilator 70 07/31/20 22:00 112 25 132/81 (98) 100 07/31/20 21:30 105 25 119/76 (90) 100 07/31/20 21:00 22 135/81 Mechanical Ventilator 70 07/31/20 21:00 105 22 128/76 (93) 100 07/31/20 20:30 104 19 120/79 (93) 100 07/31/20 20:00 Mechanical Ventilator Mechanical Ventilator 07/31/20 20:00 106 22 120/72 (88) 100 07/31/20 20:00 21 112/70 Mechanical Ventilator 70 07/31/20 19:30 106 22 117/81 (93) 100 07/31/20 19:20 112 23 70 07/31/20 19:00 107 33 120/80 (93) 100 07/31/20 19:00 107 33 120/80 (93) 100 07/31/20 18:00 108 21 125/69 (87) 100 07/31/20 18:00 35 131/82 Mechanical Ventilator 70 07/31/20 17:00 27 131/82 Mechanical Ventilator 70 07/31/20 17:00 107 22 131/82 (98) 100 07/31/20 17:00 104 16 131/82 (98) 100 07/31/20 16:30 106 18 126/85 (99) 100 07/31/20 16:00 106 07/31/20 16:00 97.8 107 19 127/79 (95) 100 07/31/20 16:00 28 127/79 Mechanical Ventilator 70 07/31/20 16:00 Mechanical Ventilator Mechanical Ventilator 07/31/20 16:00 70 07/31/20 15:55 110 21 70 07/31/20 15:30 108 17 104/72 (83) 100 07/31/20 15:00 109 20 125/75 (92) 100 07/31/20 15:00 20 125/75 Mechanical Ventilator 70 07/31/20 14:30 111 22 117/71 (86) 100 07/31/20 14:00 117 29 137/82 (100) 87 07/31/20 14:00 31 137/82 Mechanical Ventilator 70 07/31/20 14:00 116 34 137/82 (100) 100 07/31/20 13:46 116 32 126/54 (78) 07/31/20 13:00 28 126/54 70 07/31/20 13:00 116 29 126/54 (78) 87 07/31/20 12:30 109 31 129/82 (98) 100 07/31/20 12:00 104 07/31/20 12:00 70 07/31/20 12:00 117 34 138/63 (88) 100 07/31/20 12:00 27 132/76 Mechanical Ventilator 70 07/31/20 12:00 Mechanical Ventilator Mechanical Ventilator 07/31/20 12:00 98.8 118 40 132/76 (94) 100 07/31/20 11:30 113 34 132/85 (101) 100 07/31/20 11:14 115 32 70 07/31/20 11:00 113 27 134/79 (97) 100 07/31/20 11:00 33 134/79 Mechanical Ventilator 80 Intake and Output 07/31/20 08/01/20 19:00 07:00 Intake Total 615 ml 380 ml Output Total 685 ml 200 ml Balance -70 ml 180 ml IV Total 315 ml 305 ml Tube Feeding 300 ml 75 ml Output Urine Total 595 ml 200 ml Emesis 90 ml Chest Tube Drainage Total 0 ml # Bowel Movements 2 Laboratory Tests Test 07/31/20 14:15 08/01/20 04:45 Urine Color [place] Urine Appearance Cloudy Urine pH 6 (4.5-8.0) Urine Specific [place] 1.015 (1.005-1.035) Urine Protein 3+ (NEGATIVE) H Urine Glucose (UA) Negative (NEGATIVE) Urine Ketones 1+ (NEGATIVE) H Urine Blood 5+ (NEGATIVE) H Urine Nitrite Positive (NEGATIVE) H Urine Bilirubin Negative (NEGATIVE) Urine Urobilinogen 1 MG/DL (0.0-1.0) H Urine Leukocyte Esterase 3+ (NEGATIVE) H Urine RBC Tntc /HPF (0 - 2) H Urine WBC 10-15 /HPF (0 - 2) H Urine Squamous Epithelial Cells None /LPF (NONE/OCC) Urine Bacteria Moderate /HPF (NONE) H White Blood Count 9.7 K/UL (4.8-10.8) # Red Blood Count 2.90 M/UL (4.20-5.40) L Hemoglobin 8.4 G/DL (12.0-16.0) L Hematocrit 27.8 % (37.0-47.0) L Mean Corpuscular Volume 96 FL (80-99) Mean Corpuscular Hemoglobin 28.8 PG (27.0-31.0) Mean Corpuscular Hemoglobin Concent 30.0 G/DL (32.0-36.0) L Red Cell Distribution Width 18.2 % (11.6-14.8) H Platelet Count 215 K/UL (150-450) Mean Platelet Volume 8.0 FL (6.5-10.1) Neutrophils (%) (Auto) 78.2 % (45.0-75.0) H Lymphocytes (%) (Auto) 13.3 % (20.0-45.0) L Monocytes (%) (Auto) 6.9 % (1.0-10.0) Eosinophils (%) (Auto) 1.0 % (0.0-3.0) Basophils (%) (Auto) 0.6 % (0.0-2.0) Sodium Level 143 MMOL/L (136-145) Potassium Level 4.7 MMOL/L (3.5-5.1) Chloride Level 101 MMOL/L (98-107) Carbon Dioxide Level 40 MMOL/L (21-32) H Anion Gap 1 mmol/L (5-15) L Blood Urea Nitrogen 2 mg/dL (7-18) L Creatinine 0.5 MG/DL (0.55-1.30) L Estimat Glomerular Filtration Rate > 60 mL/min (>60) Glucose Level 131 MG/DL (74-106) H Calcium Level 8.1 MG/DL (8.5-10.1) L Microbiology Date/Time Source Procedure Growth Status 07/31/20 14:15 Urine,Clean Catch Urine Culture - Preliminary NO GROWTH Resulted 07/31/20 14:15 Urine,Clean Catch Urine Culture - Preliminary NO GROWTH Resulted Objective HEAD AND NECK: Status post tracheostomy LUNGS: Coarse rhonchi. Right ThoraVent in place CARDIOVASCULAR: Regular S1 and S2 with no gallop. ABDOMEN: Soft.S/P PEG EXTREMITIES: 1+ pitting edema. Hill Burger MD Aug 01, 2020 10:43
--- NOTE | 2020-08-01 10:58 | NUR ---
0720: Received report from previous RN. Per RN pt projectile vomit overnight. Tube feeds were stopped. Pt remains on fentanyl. Pt remains with marrero with some hemturia. Pt has R chest pleura vent. 1015: MD Elijah at bedside. Orders to start lasix. Will wean off of Fentanyl as tolerated. Will wean FiO2 as tolerated.
--- NOTE | 2020-08-01 13:27 | NUR ---
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 LTACH WAS DECLINED PER INSURANCE. THIS PT HAS BEEN ESCALATED TO [facility] FOR TRANSFER INTO NETWORK.JAYA TO CALL ME BACK TODAY OR TOMORROW WITH UP DATES. WILL FOLLOW UP.
--- NOTE | 2020-08-01 14:11 | Surgery Progress Note ---
Surgery Progress Note Subjective Procedure Performed right tube chest tube insertion Additional Comments respiratory stable no n/v chest tube min outpt pending cxr Objective Last 24 Hour Vital Signs Date Time Temp Pulse Resp B/P (MAP) Pulse Ox O2 Delivery O2 Flow Rate FiO2 08/01/20 14:00 95 25 117/59 (78) 100 08/01/20 13:30 96 24 112/69 (83) 100 08/01/20 13:00 95 20 108/67 (81) 100 08/01/20 13:00 29 108/67 Mechanical Ventilator 60 08/01/20 12:30 95 25 118/67 (84) 100 08/01/20 12:00 95 08/01/20 12:00 97.1 99 35 115/98 (104) 100 08/01/20 12:00 31 112/63 Mechanical Ventilator 60 08/01/20 12:00 60 08/01/20 12:00 Mechanical Ventilator Mechanical Ventilator 08/01/20 11:30 93 25 111/67 (82) 100 08/01/20 11:30 31 115/98 70 08/01/20 11:00 90 27 112/65 (81) 100 08/01/20 11:00 29 108/73 Mechanical Ventilator 70 08/01/20 10:45 29 111/67 Mechanical Ventilator 70 08/01/20 10:30 92 27 115/66 (82) 100 08/01/20 10:30 28 115/66 Mechanical Ventilator 70 08/01/20 10:00 28 116/63 Mechanical Ventilator 70 08/01/20 10:00 93 33 116/63 (80) 100 08/01/20 09:30 93 24 110/68 (82) 100 08/01/20 09:00 31 108/49 Mechanical Ventilator 70 08/01/20 09:00 95 21 108/49 (68) 100 08/01/20 08:30 96 27 110/74 (86) 100 08/01/20 08:00 70 08/01/20 08:00 Mechanical Ventilator Mechanical Ventilator 08/01/20 08:00 28 110/61 Mechanical Ventilator 70 08/01/20 08:00 98 08/01/20 08:00 97.5 96 37 105/65 (78) 100 08/01/20 07:30 99 28 112/66 (81) 100 08/01/20 07:22 95 21 70 08/01/20 07:00 97 25 114/68 (83) 100 08/01/20 07:00 29 114/68 Mechanical Ventilator 70 08/01/20 06:30 100 31 118/76 (90) 100 08/01/20 06:00 100 23 112/74 (87) 100 08/01/20 05:00 101 33 111/88 (96) 100 08/01/20 04:00 101 08/01/20 04:00 Mechanical Ventilator Mechanical Ventilator 08/01/20 04:00 102 29 128/84 (99) 100 08/01/20 04:00 70 08/01/20 03:28 99 28 70 08/01/20 03:00 98 18 116/80 (92) 100 08/01/20 02:30 100 22 126/82 (97) 100 08/01/20 02:00 100 24 119/80 (93) 100 08/01/20 01:00 99 19 124/79 (94) 100 08/01/20 00:00 Mechanical Ventilator Mechanical Ventilator 08/01/20 00:00 103 23 120/77 (91) 100 08/01/20 00:00 101 08/01/20 00:00 70 07/31/20 23:30 103 23 129/77 (94) 100 07/31/20 23:18 104 27 70 07/31/20 23:00 103 18 132/77 (95) 100 07/31/20 23:00 21 129/77 Mechanical Ventilator 70 07/31/20 22:30 105 21 120/78 (92) 100 07/31/20 22:00 21 128/80 Mechanical Ventilator 70 07/31/20 22:00 112 25 132/81 (98) 100 07/31/20 21:30 105 25 119/76 (90) 100 07/31/20 21:00 22 135/81 Mechanical Ventilator 70 07/31/20 21:00 105 22 128/76 (93) 100 07/31/20 20:30 104 19 120/79 (93) 100 07/31/20 20:00 Mechanical Ventilator Mechanical Ventilator 07/31/20 20:00 106 22 120/72 (88) 100 07/31/20 20:00 21 112/70 Mechanical Ventilator 70 07/31/20 19:30 106 22 117/81 (93) 100 07/31/20 19:20 112 23 70 07/31/20 19:00 107 33 120/80 (93) 100 07/31/20 19:00 107 33 120/80 (93) 100 07/31/20 18:00 108 21 125/69 (87) 100 07/31/20 18:00 35 131/82 Mechanical Ventilator 70 07/31/20 17:00 27 131/82 Mechanical Ventilator 70 07/31/20 17:00 107 22 131/82 (98) 100 07/31/20 17:00 104 16 131/82 (98) 100 07/31/20 16:30 106 18 126/85 (99) 100 07/31/20 16:00 106 07/31/20 16:00 97.8 107 19 127/79 (95) 100 07/31/20 16:00 28 127/79 Mechanical Ventilator 70 07/31/20 16:00 Mechanical Ventilator Mechanical Ventilator 07/31/20 16:00 70 07/31/20 15:55 110 21 70 07/31/20 15:30 108 17 104/72 (83) 100 07/31/20 15:00 109 20 125/75 (92) 100 07/31/20 15:00 20 125/75 Mechanical Ventilator 70 07/31/20 14:30 111 22 117/71 (86) 100 I&O Intake and Output 07/31/20 08/01/20 19:00 07:00 Intake Total 615 ml 395 ml Output Total 685 ml 250 ml Balance -70 ml 145 ml IV Total 315 ml 320 ml Tube Feeding 300 ml 75 ml Output Urine Total 595 ml 250 ml Emesis 90 ml Chest Tube Drainage Total 0 ml # Bowel Movements 2 Dressing: saturated Drains: other Cardiovascular: RSR Respiratory: decreased breath sounds Abdomen: soft, non-tender, present bowel sounds, non-distended Extremities: no edema, no tenderness, no cyanosis Laboratory Tests Test 07/31/20 14:15 08/01/20 04:45 08/01/20 12:40 Urine Color [place] Urine Appearance Cloudy Urine pH 6 (4.5-8.0) Urine Specific [place] 1.015 (1.005-1.035) Urine Protein 3+ (NEGATIVE) H Urine Glucose (UA) Negative (NEGATIVE) Urine Ketones 1+ (NEGATIVE) H Urine Blood 5+ (NEGATIVE) H Urine Nitrite Positive (NEGATIVE) H Urine Bilirubin Negative (NEGATIVE) Urine Urobilinogen 1 MG/DL (0.0-1.0) H Urine Leukocyte Esterase 3+ (NEGATIVE) H Urine RBC Tntc /HPF (0 - 2) H Urine WBC 10-15 /HPF (0 - 2) H Urine Squamous Epithelial Cells None /LPF (NONE/OCC) Urine Bacteria Moderate /HPF (NONE) H White Blood Count 9.7 K/UL (4.8-10.8) # Red Blood Count 2.90 M/UL (4.20-5.40) L Hemoglobin 8.4 G/DL (12.0-16.0) L Hematocrit 27.8 % (37.0-47.0) L Mean Corpuscular Volume 96 FL (80-99) Mean Corpuscular Hemoglobin 28.8 PG (27.0-31.0) Mean Corpuscular Hemoglobin Concent 30.0 G/DL (32.0-36.0) L Red Cell Distribution Width 18.2 % (11.6-14.8) H Platelet Count 215 K/UL (150-450) Mean Platelet Volume 8.0 FL (6.5-10.1) Neutrophils (%) (Auto) 78.2 % (45.0-75.0) H Lymphocytes (%) (Auto) 13.3 % (20.0-45.0) L Monocytes (%) (Auto) 6.9 % (1.0-10.0) Eosinophils (%) (Auto) 1.0 % (0.0-3.0) Basophils (%) (Auto) 0.6 % (0.0-2.0) Sodium Level 143 MMOL/L (136-145) Potassium Level 4.7 MMOL/L (3.5-5.1) Chloride Level 101 MMOL/L (98-107) Carbon Dioxide Level 40 MMOL/L (21-32) H Anion Gap 1 mmol/L (5-15) L Blood Urea Nitrogen 2 mg/dL (7-18) L Creatinine 0.5 MG/DL (0.55-1.30) L Estimat Glomerular Filtration Rate > 60 mL/min (>60) Glucose Level 131 MG/DL (74-106) H Calcium Level 8.1 MG/DL (8.5-10.1) L POC Whole Blood Glucose 125 MG/DL (74-106) H Plan Problems: (1) Respiratory distress (2) Respiratory failure Assessment & Plan: 50-year-old female Covid positive respiratory insufficiency intubated on ventilatory support declining. Leukocytosis increase oxygen requirement. Vent settings per pulmonology reviewed identified and agree. Unfortunately further surgical invention at this time is not appropriate as bj martinez is not a candidate and her current condition. Prognosis overall guarded. Tracheostomy can be considered in the future if recovering or shows improvement and requires unable to be weaned from ventilator support. Currently okay for nutritional optimization with NG tube. Will need significant monitoring for decubitus formation given patient's size and condition. Okay for air mattress tolerated. Turn every 2 hours as tolerated. Patient is otherwise critically ill and blood pressure labile. Will need to monitor closely.Bilateral infiltrates are again demonstrated. Stable tube and line positions. will need trach will need to wean vent first no cuff leak trach okay Improving weaning well DC planning placement much improved peg placement trach changed acls now resuscitated (3) Hypoxia (4) Pneumonia due to COVID-19 virus Assessment & Plan: ++ as per pulm and ID (5) Diabetes mellitus out of control Assessment & Plan: DAILY ESTIMATED NEEDS: Needs based on Critical care, obesity 11-14kcal/kg actual body wt (140kg) kcals/kg 9781-9562 total kcals 1.5-2.0g prot/kg IBW (64.5kg) g protein/kg 96-129 g total protein 25-30ml/kg abw (83kg) mL/kg 6418-5320 total fluid mLs NUTRITION DIAGNOSIS: Swallowing difficulty R/T respiratory failure as evidenced by pt orally intubated and sedated, on OGT feeds. CURRENT TF: Vital 1.2 goal of 60ml/hr ENTERAL NUTRITION RECOMMENDATIONS: Vital AF 1.2 @ 60ml/hr x 24 hrs to provide 1440ml, 1728kcal, 108g prot, 1168ml free water * Maintain current critical care and carb controlled TF formula of Vital AF * TF @ goal meeds 100% est kcal/prot needs * HOB over 30 degrees/ water flush per TF may be lowered to 55ml/hr for improved BG control while maintaining Kcal and pro needs. ADDITIONAL RECOMMENDATIONS: * Calibrated bedscale wt * Monitor Propofol rate, need for TF adjustment-> now off * Monitor BGs closely : now improved, on novolog q 6rs + NISS * Monitor lytes- K elevated, monitor need for TF change * Rec bowel regimen- now w/ rectal tube . (6) Pneumothorax on right Assessment & Plan: right tension pneumothorax trach changed for cuff leak and decreased volumes pressures high after and ptx tension acls resuscitated right chest tube placed ptx resolved cont chest tube to suction am cxr wean vent Right chest tube, tracheostomy, nasogastric tube remain. Previously demonstrated subcutaneous emphysema has nearly completely cleared, with only questionably small residual in the left supraclavicular fossa. Extensive bilateral infiltrates persist. There is no pneumothorax currently. The heart is borderline enlarged. Pneumoperitoneum persists, may be slightly decreased Impression: Markedly improved subcutaneous emphysema Unchanged bilateral infiltrates Persistent but perhaps slightly decreased pneumoperitoneum chest tube removed 07/29 f/u cxr new chest tube 07/30 (7) DEVENDRA (acute kidney injury) (8) Morbid obesity Az Devine Aug 01, 2020 14:11
--- NOTE | 2020-08-01 14:32 | Nephrology Progress Note ---
Assessment/Plan Problem List: (1) DEVENDRA (acute kidney injury) (2) Morbid obesity (3) Diabetes mellitus out of control (4) Pneumonia due to COVID-19 virus (5) Respiratory failure Assessment Acute renal failure Obstructive uropathy, clogged [place] Respiratory failure COVID-19 pneumonia Morbid obesity Plan August 01: Status quo. Leukocytosis resolved. Renal parameters stable. Continues to be vented through trach. Has PEG. Continue per consultants. Patient is full code. July 31: Chest tube was right reinserted on the right side. Patient remains trached on vent. Leukocytosis worsened . Renal parameters unchanged. Continue per current treatment plan. July 30: Status quo. Labs reviewed. Medication list reviewed. Stable from renal standpoint of view. Patient is full code, trached and vent, also has PEG. July 29: Status quo. Discussed with RN. Labs and medication list reviewed. Stable from renal standpoint of view. July 28: Full code. Labs reviewed. Abnormal electrolytes addressed. Medication list reviewed. Patient has trach and PEG and on ventilator. Continue per consultants. July 27: Full code. In ICU. Trach to vent. Labs reviewed. Renal parameters and electrolytes stable. July 26: Remains in ICU. Remains full code. Trach to vent. Labs reviewed. Abnormal electrolytes addressed. Continue per consultants. July 25: Seen in ICU. Received PEG yesterday. Has trach connected to vent. Full code. Labs reviewed. Albumin bolus given. IV started on table feeding via GT tube initiated. July 24: Patient seen in ICU. Status quo. Has trach. Being ventilated. Has right chest tube. Labs reviewed. Continue per consultants. Low magnesium and low phosphorus replaced. July 23: Patient seen in ICU. Discussed with RN. Yesterday the patient developed tension pneumothorax. Patient has a chest tube today. Labs reviewed. Renal parameters stable. Medication list reviewed. July 22: Status quo. Labs reviewed. Serum calcium elevated. Vitamin D discontinued. Pamidronate 60 mg IV given. Continue to monitor calcium and phosphorus. Patient due for PEG today. July 21: Status quo. Awake responsive. Labs reviewed. Medication list reviewed. Stable from renal standpoint of view. Due for PEG tomorrow. Continue her current management. July 20: Status quo. PEG procedure deferred to July 22. Patient remains full code. Abnormal electrolytes addressed. FiO2 50% unchanged. Continue per consultants. July 19: Status quo. Due for PEG insertion today. Remains full code. Trach and vent. Low magnesium addressed. Continue per consultants. FiO2 50%. July 18: Status quo. Labs reviewed. Low potassium addressed. Continue per consultants. Remains full code. July 17: Remains full code. Trach to vent. FiO2 40%. Labs reviewed. Low potassium addressed. Continue per consultants. July 16: Status quo. FiO2 45%. Discussed with RN. Continue to taper her mind altering medications and sedatives. Stable from renal standpoint of view. Abnormal electrolytes addressed. July 15: Full code. FiO2 50%. Intubated on ventilator. No labs drawn today. Continue per consultants. July 14: Status quo. FiO2 50%. Labs reviewed. Renal parameters stable. Continue per current treatment plan and consultants. Medication list reviewed. July 13: FiO2 60% unchanged. Labs reviewed. Renal parameters stable. Medication list reviewed. Continue per consultants. July 12: Full code. Labs reviewed. Normal electrolytes addressed. Continue per pulmonary. Medication list reviewed. July 11: Remains full code. On ventilator. FiO2 down to 65%. Renal parameters stable. Low magnesium addressed. Continue her current management. July 10: Full code. On ventilator. FiO2 70%. Hemoglobin [place]. Renal parameters stable. Continue per consultants. July 09: Labs reviewed. Renal parameters stable. FiO2 80% unchanged. Continue per pulmonary. July 08: Labs reviewed. Renal parameters and electrolytes stable. ABG suggestive of high PCO2. At this time patient is on FiO2 of 80%. Continue per pulmonary. Continue to monitor renal parameters. July 07: No CHEM panel drawn today. More potassium given. Continue to monitor renal parameters. Continue per consultants. Discussed with RAKEL Veras. July 06: Low potassium addressed. Albumin bolus for low BP given. Patient remains full code. Continue to monitor electrolytes and renal parameters. Continue per consultants. Hemoglobin low today, transfusion per interventional radiologist. July 05: Trach to vent. FiO2 80%. Renal parameters stable. PCO2 remains high at 44. Continue to monitor renal parameters. July 04: Patient now trach. Full code. Labs reviewed. Renal parameters stable. Low magnesium addressed. July 03: Intubated. Full code. Labs reviewed. Abnormal electrolytes addressed. Continue per consultants. Overall status unchanged. July 02: Remains intubated. Remains full code. Remains on FiO2 of 70%. Labs reviewed. Abnormal electrolytes addressed. Continue per pulmonary. July 01: Remains on 70% FiO2. Full code. Intubated on ventilator. Retaining CO2. Discussed with RN. Will do ABG today. Albumin bolus given. 1 dose of Diamox given. June 30: Status quo. Labs reviewed. Abnormal electrolytes addressed. Remains full code. Remains on ventilator. Magnesium sulfate 4 gram IVPB given. June 29: Full code. Intubated on ventilator. Labs reviewed. Stable from renal standpoint of view. Continue per consultants. June 28: Remains full code. Remains intubated on ventilator. Labs reviewed. Vitamin D supplement ordered. Continue to monitor renal parameters. Continue per consultants. June 27: Remains full code. Intubated on ventilator. Labs reviewed. Abnormal electrolyte addressed. Continue to monitor renal parameters and electrolytes. Continue per consultants. June 26: Labs reviewed. Remains full code. Remains intubated. Back on NGT feeding. Continue to monitor renal parameters. June 25: Labs reviewed. Renal parameters stable. Remains full code. Due to positional status patient could not be fed via NG tube. Starting TPN? Is being entertained. Continue per consultants. June 24: Labs reviewed. Renal parameters stable. Remains full code. Remains intubated on ventilator. Continue per consultants. June 23: Labs reviewed. Renal parameters stable. Discussed with RN. Ab normal electrolyte addressed. Remains full code. Remains on ventilator. Continue per consultants. June 22: Labs reviewed. Low potassium addressed. Discussed with RAKEL Moran. Patient full code. Remains on ventilator. Continue to monitor renal para meters. June 21. Labs reviewed. Abnormal electrolyte addressed. Full code. Remains on ventilator. Medication list reviewed. Continue per pulmonary management. DC IV fluid, resume Lasix daily, check chest x-ray. June 20: Labs reviewed. Abnormal electrolytes. Patient remains full code. Continue per consultants. Noted and addressed June 19: Labs reviewed. Abnormal electrolytes noted and addressed. Remains intubated on ventilator. Remains full code. June 18: Labs reviewed. Remains intubated on ventilator. Full code. Abnormal electrolyte addressed. Continue as is. June 17: Labs reviewed. Abnormal electrolytes addressed. Patient remains full code and intubated on ventilator. Continue per consultants. Renal parameters are within normal limits. June 16: Labs reviewed. Potassium chloride replaced. Remains full code. Remains intubated on ventilator. Continue per consultants. Continue to monitor renal parameters. June 15: Labs reviewed. Serum creatinine 1. Stable from renal standpoint to view. Continue per consultants. June 14: Labs reviewed. Full code. Serum creatinine of 3.5 down to 1.4. Low potassium addressed. Continue per current treatment plan. Continue to monitor renal parameters. Midodrine started. Albumin bolus given. Previously: DC Lasix drip Increase Protonix dose Monitor renal parameters, electrolytes Per orders Subjective ROS Limited/Unobtainable: Yes Objective Objective Last 24 Hour Vital Signs Date Time Temp Pulse Resp B/P (MAP) Pulse Ox O2 Delivery O2 Flow Rate FiO2 08/01/20 14:00 95 25 117/59 (78) 100 08/01/20 13:30 96 24 112/69 (83) 100 08/01/20 13:00 95 20 108/67 (81) 100 08/01/20 13:00 29 108/67 Mechanical Ventilator 60 08/01/20 12:30 95 25 118/67 (84) 100 08/01/20 12:00 95 08/01/20 12:00 97.1 99 35 115/98 (104) 100 08/01/20 12:00 31 112/63 Mechanical Ventilator 60 08/01/20 12:00 60 08/01/20 12:00 Mechanical Ventilator Mechanical Ventilator 08/01/20 11:30 93 25 111/67 (82) 100 08/01/20 11:30 31 115/98 70 08/01/20 11:00 90 27 112/65 (81) 100 08/01/20 11:00 29 108/73 Mechanical Ventilator 70 08/01/20 10:45 29 111/67 Mechanical Ventilator 70 08/01/20 10:30 92 27 115/66 (82) 100 08/01/20 10:30 28 115/66 Mechanical Ventilator 70 08/01/20 10:00 28 116/63 Mechanical Ventilator 70 08/01/20 10:00 93 33 116/63 (80) 100 08/01/20 09:30 93 24 110/68 (82) 100 08/01/20 09:00 31 108/49 Mechanical Ventilator 70 08/01/20 09:00 95 21 108/49 (68) 100 08/01/20 08:30 96 27 110/74 (86) 100 08/01/20 08:00 70 08/01/20 08:00 Mechanical Ventilator Mechanical Ventilator 08/01/20 08:00 28 110/61 Mechanical Ventilator 70 08/01/20 08:00 98 08/01/20 08:00 97.5 96 37 105/65 (78) 100 08/01/20 07:30 99 28 112/66 (81) 100 08/01/20 07:22 95 21 70 08/01/20 07:00 97 25 114/68 (83) 100 08/01/20 07:00 29 114/68 Mechanical Ventilator 70 08/01/20 06:30 100 31 118/76 (90) 100 08/01/20 06:00 100 23 112/74 (87) 100 08/01/20 05:00 101 33 111/88 (96) 100 08/01/20 04:00 101 08/01/20 04:00 Mechanical Ventilator Mechanical Ventilator 08/01/20 04:00 102 29 128/84 (99) 100 08/01/20 04:00 70 08/01/20 03:28 99 28 70 08/01/20 03:00 98 18 116/80 (92) 100 08/01/20 02:30 100 22 126/82 (97) 100 08/01/20 02:00 100 24 119/80 (93) 100 08/01/20 01:00 99 19 124/79 (94) 100 08/01/20 00:00 Mechanical Ventilator Mechanical Ventilator 08/01/20 00:00 103 23 120/77 (91) 100 08/01/20 00:00 101 08/01/20 00:00 70 07/31/20 23:30 103 23 129/77 (94) 100 07/31/20 23:18 104 27 70 07/31/20 23:00 103 18 132/77 (95) 100 07/31/20 23:00 21 129/77 Mechanical Ventilator 70 07/31/20 22:30 105 21 120/78 (92) 100 07/31/20 22:00 21 128/80 Mechanical Ventilator 70 07/31/20 22:00 112 25 132/81 (98) 100 07/31/20 21:30 105 25 119/76 (90) 100 07/31/20 21:00 22 135/81 Mechanical Ventilator 70 07/31/20 21:00 105 22 128/76 (93) 100 07/31/20 20:30 104 19 120/79 (93) 100 07/31/20 20:00 Mechanical Ventilator Mechanical Ventilator 07/31/20 20:00 106 22 120/72 (88) 100 07/31/20 20:00 21 112/70 Mechanical Ventilator 70 07/31/20 19:30 106 22 117/81 (93) 100 07/31/20 19:20 112 23 70 07/31/20 19:00 107 33 120/80 (93) 100 07/31/20 19:00 107 33 120/80 (93) 100 07/31/20 18:00 108 21 125/69 (87) 100 07/31/20 18:00 35 131/82 Mechanical Ventilator 70 07/31/20 17:00 27 131/82 Mechanical Ventilator 70 07/31/20 17:00 107 22 131/82 (98) 100 07/31/20 17:00 104 16 131/82 (98) 100 07/31/20 16:30 106 18 126/85 (99) 100 07/31/20 16:00 106 07/31/20 16:00 97.8 107 19 127/79 (95) 100 07/31/20 16:00 28 127/79 Mechanical Ventilator 70 07/31/20 16:00 Mechanical Ventilator Mechanical Ventilator 07/31/20 16:00 70 07/31/20 15:55 110 21 70 07/31/20 15:30 108 17 104/72 (83) 100 07/31/20 15:00 109 20 125/75 (92) 100 07/31/20 15:00 20 125/75 Mechanical Ventilator 70 Intake and Output 07/31/20 08/01/20 19:00 07:00 Intake Total 615 ml 395 ml Output Total 685 ml 250 ml Balance -70 ml 145 ml IV Total 315 ml 320 ml Tube Feeding 300 ml 75 ml Output Urine Total 595 ml 250 ml Emesis 90 ml Chest Tube Drainage Total 0 ml # Bowel Movements 2 Current Medications Medications (Trade) Dose Ordered Sig/Zelda Route PRN Reason Start Time Stop Time Status Last Admin Dose Admin Acetaminophen (Tylenol) 650 mg Q4H PRN NG Temp >100.5 07/27/20 03:45 08/26/20 03:44 07/29/20 20:24 Calcitonin Worth (Miacalcin) 1 sprays DAILY NASAL 07/22/20 14:00 10/20/20 13:59 08/01/20 08:35 Chlorhexidine Gluconate (Inna-Hex 2%) 1 applic DAILY@2000 TOPIC 07/20/20 20:00 10/18/20 19:59 07/31/20 20:16 Dextrose (Dextrose 50%) 25 ml Q30M PRN IV Hypoglycemia 06/05/20 10:45 09/03/20 10:44 Dextrose (Dextrose 50%) 50 ml Q30M PRN IV Hypoglycemia 06/05/20 10:45 09/03/20 10:44 Docusate Sodium (Colace) 100 mg TWICE A DAY NG 07/26/20 18:00 08/25/20 17:59 08/01/20 08:34 Enoxaparin Sodium (Lovenox) 110 mg EVERY 12 HOURS SUBQ 07/17/20 21:00 10/15/20 20:59 08/01/20 08:40 Fentanyl Citrate 250 ml @ 0 mls/hr Q24H PRN IV . 07/31/20 12:00 08/02/20 11:59 08/01/20 08:00 Furosemide (Lasix) 40 mg EVERY 12 HOURS IV 08/01/20 11:00 08/31/20 10:59 08/01/20 11:16 Guaifenesin/ Codeine Phosphate (Robitussin with codeine) 5 ml Q6H PRN NG For Cough 07/14/20 14:15 08/13/20 14:14 07/18/20 21:44 Lansoprazole (Prevacid) 30 mg DAILY GT 07/18/20 09:00 08/09/20 08:59 08/01/20 08:34 Meropenem 1 gm/ Sodium Chloride 55 ml @ 110 mls/hr Q8H IVPB 07/22/20 12:00 08/06/20 23:59 08/01/20 11:37 Midazolam HCl 200 ml @ 0 mls/hr Q24H PRN IV SEDATION 07/29/20 14:15 08/05/20 14:14 07/30/20 00:37 Midodrine (Pro-Amatine) 10 mg Q8HR GT 06/30/20 14:00 09/12/20 13:59 08/01/20 14:14 Ondansetron HCl (Zofran) 4 mg EVERY 8 HOURS IVP 07/31/20 14:00 08/30/20 13:59 08/01/20 14:15 Polyethylene Glycol (Miralax) 17 gm BEDTIME ORAL 07/26/20 21:00 08/25/20 20:59 07/31/20 20:16 Quetiapine Fumarate (SEROqueL) 50 mg Q8HR GT 07/31/20 14:00 08/30/20 13:59 08/01/20 14:14 Vancomycin HCl 250 ml @ 166.667 mls/hr Q12H IVPB 08/01/20 05:00 08/06/20 04:59 08/01/20 06:12 Vancomycin HCl (Vanco pharmacy to dose) 1 ea DAILY PRN MISC Per rx protocol 07/31/20 11:45 08/30/20 11:44 Laboratory Tests 08/01/20 04:45: White Blood Count 9.7#, Red Blood Count 2.90L, Hemoglobin 8.4L, Hematocrit 27.8L , Mean Corpuscular Volume 96, Mean Corpuscular Hemoglobin 28.8, Mean Corpuscular Hemoglobin Concent 30.0L, Red Cell Distribution Width 18.2H, Platelet Count 215, Mean Platelet Volume 8.0, Neutrophils (%) (Auto) 78.2H, Lymphocytes (%) (Auto) 13.3L, Monocytes (%) (Auto) 6.9, Eosinophils (%) (Auto) 1.0, Basophils (%) (Auto) 0.6, Sodium Level 143, Potassium Level 4.7, Chloride Level 101, Carbon Dioxide Level 40H, Anion Gap 1L, Blood Urea Nitrogen 2L, Creatinine 0.5L, Estimat Glomerular Filtration Rate > 60, Glucose Level 131H, Calcium Level 8.1L 08/01/20 12:40: POC Whole Blood Glucose 125H Height (Feet): 5 Height (Inches): 5.00 Weight (Pounds): 223 General Appearance: no apparent distress EENT: other - Trach to vent Cardiovascular: tachycardia Respiratory/Chest: decreased breath sounds Abdomen: distended Rigo Tyler MD Aug 01, 2020 14:32
--- NOTE | 2020-08-01 15:32 | General Progress Note ---
Subjective ROS Limited/Unobtainable: No Allergies: Coded Allergies: No Known Allergies (Unverified , 05/28/20) Subjective vomited again had BM no GT residuals Objective Last 24 Hour Vital Signs Date Time Temp Pulse Resp B/P (MAP) Pulse Ox O2 Delivery O2 Flow Rate FiO2 08/01/20 14:00 95 25 117/59 (78) 100 08/01/20 13:30 96 24 112/69 (83) 100 08/01/20 13:00 95 20 108/67 (81) 100 08/01/20 13:00 29 108/67 Mechanical Ventilator 60 08/01/20 12:30 95 25 118/67 (84) 100 08/01/20 12:30 60 08/01/20 12:00 95 08/01/20 12:00 97.1 99 35 115/98 (104) 100 08/01/20 12:00 31 112/63 Mechanical Ventilator 60 08/01/20 12:00 60 08/01/20 12:00 Mechanical Ventilator Mechanical Ventilator 08/01/20 11:30 93 25 111/67 (82) 100 08/01/20 11:30 31 115/98 70 08/01/20 11:26 100 19 70 08/01/20 11:00 90 27 112/65 (81) 100 08/01/20 11:00 29 108/73 Mechanical Ventilator 70 08/01/20 10:45 29 111/67 Mechanical Ventilator 70 08/01/20 10:30 92 27 115/66 (82) 100 08/01/20 10:30 28 115/66 Mechanical Ventilator 70 08/01/20 10:00 28 116/63 Mechanical Ventilator 70 08/01/20 10:00 93 33 116/63 (80) 100 08/01/20 09:30 93 24 110/68 (82) 100 08/01/20 09:00 31 108/49 Mechanical Ventilator 70 08/01/20 09:00 95 21 108/49 (68) 100 08/01/20 08:30 96 27 110/74 (86) 100 08/01/20 08:00 70 08/01/20 08:00 Mechanical Ventilator Mechanical Ventilator 08/01/20 08:00 28 110/61 Mechanical Ventilator 70 08/01/20 08:00 98 08/01/20 08:00 97.5 96 37 105/65 (78) 100 08/01/20 07:30 99 28 112/66 (81) 100 08/01/20 07:22 95 21 70 08/01/20 07:00 97 25 114/68 (83) 100 08/01/20 07:00 29 114/68 Mechanical Ventilator 70 08/01/20 06:30 100 31 118/76 (90) 100 08/01/20 06:00 100 23 112/74 (87) 100 08/01/20 05:00 101 33 111/88 (96) 100 08/01/20 04:00 101 08/01/20 04:00 Mechanical Ventilator Mechanical Ventilator 08/01/20 04:00 102 29 128/84 (99) 100 08/01/20 04:00 70 08/01/20 03:28 99 28 70 08/01/20 03:00 98 18 116/80 (92) 100 08/01/20 02:30 100 22 126/82 (97) 100 08/01/20 02:00 100 24 119/80 (93) 100 08/01/20 01:00 99 19 124/79 (94) 100 08/01/20 00:00 Mechanical Ventilator Mechanical Ventilator 08/01/20 00:00 103 23 120/77 (91) 100 08/01/20 00:00 101 08/01/20 00:00 70 07/31/20 23:30 103 23 129/77 (94) 100 07/31/20 23:18 104 27 70 07/31/20 23:00 103 18 132/77 (95) 100 07/31/20 23:00 21 129/77 Mechanical Ventilator 70 07/31/20 22:30 105 21 120/78 (92) 100 07/31/20 22:00 21 128/80 Mechanical Ventilator 70 07/31/20 22:00 112 25 132/81 (98) 100 07/31/20 21:30 105 25 119/76 (90) 100 07/31/20 21:00 22 135/81 Mechanical Ventilator 70 07/31/20 21:00 105 22 128/76 (93) 100 07/31/20 20:30 104 19 120/79 (93) 100 07/31/20 20:00 Mechanical Ventilator Mechanical Ventilator 07/31/20 20:00 106 22 120/72 (88) 100 07/31/20 20:00 21 112/70 Mechanical Ventilator 70 07/31/20 19:30 106 22 117/81 (93) 100 07/31/20 19:20 112 23 70 07/31/20 19:00 107 33 120/80 (93) 100 07/31/20 19:00 107 33 120/80 (93) 100 07/31/20 18:00 108 21 125/69 (87) 100 07/31/20 18:00 35 131/82 Mechanical Ventilator 70 07/31/20 17:00 27 131/82 Mechanical Ventilator 70 07/31/20 17:00 107 22 131/82 (98) 100 07/31/20 17:00 104 16 131/82 (98) 100 07/31/20 16:30 106 18 126/85 (99) 100 07/31/20 16:00 106 07/31/20 16:00 97.8 107 19 127/79 (95) 100 07/31/20 16:00 28 127/79 Mechanical Ventilator 70 07/31/20 16:00 Mechanical Ventilator Mechanical Ventilator 07/31/20 16:00 70 07/31/20 15:55 110 21 70 Intake and Output 07/31/20 08/01/20 19:00 07:00 Intake Total 615 ml 395 ml Output Total 685 ml 250 ml Balance -70 ml 145 ml IV Total 315 ml 320 ml Tube Feeding 300 ml 75 ml Output Urine Total 595 ml 250 ml Emesis 90 ml Chest Tube Drainage Total 0 ml # Bowel Movements 2 Laboratory Tests 08/01/20 04:45: White Blood Count 9.7#, Red Blood Count 2.90L, Hemoglobin 8.4L, Hematocrit 27.8L , Mean Corpuscular Volume 96, Mean Corpuscular Hemoglobin 28.8, Mean Corpuscular Hemoglobin Concent 30.0L, Red Cell Distribution Width 18.2H, Platelet Count 215, Mean Platelet Volume 8.0, Neutrophils (%) (Auto) 78.2H, Lymphocytes (%) (Auto) 13.3L, Monocytes (%) (Auto) 6.9, Eosinophils (%) (Auto) 1.0, Basophils (%) (Auto) 0.6, Sodium Level 143, Potassium Level 4.7, Chloride Level 101, Carbon Dioxide Level 40H, Anion Gap 1L, Blood Urea Nitrogen 2L, Creatinine 0.5L, Estimat Glomerular Filtration Rate > 60, Glucose Level 131H, Calcium Level 8.1L 08/01/20 12:40: POC Whole Blood Glucose 125H Height (Feet): 5 Height (Inches): 5.00 Weight (Pounds): 223 General Appearance: no apparent distress EENT: normal ENT inspection Neck: supple Cardiovascular: normal rate Respiratory/Chest: decreased breath sounds Abdomen: hypoactive bowel sounds Extremities: non-tender Assessment/Plan Problem List: (1) Morbid obesity ICD Codes: E66.01 - Morbid (severe) obesity due to excess calories SNOMED: 613943085 (2) DEVENDRA (acute kidney injury) ICD Codes: N17.9 - Acute kidney failure, unspecified SNOMED: 3895673, 27104464 (3) Diabetes mellitus out of control ICD Codes: E11.65 - Type 2 diabetes mellitus with hyperglycemia SNOMED: 18557956, 288067883 (4) Pneumonia due to COVID-19 virus ICD Codes: U07.1 - COVID-19; J12.82 - Pneumonia due to coronavirus disease 2019 SNOMED: 160324478412899735 (5) Hypoxia ICD Codes: R09.02 - Hypoxemia SNOMED: 547732981 (6) Respiratory failure ICD Codes: J96.90 - Respiratory failure, unspecified, unspecified whether with hypoxia or hypercapnia SNOMED: 820247915 Status: unchanged Assessment/Plan: s/p PEG GTF colace miralax add zofran add reglan will Ryan Dubose MD Aug 01, 2020 15:32
[2020-08-01] MEDS: Metoclopramide 10mg/2ml Inj IVP SCH (17:57)
[2020-08-01] MEDS ORDERED: Metoclopramide 10mg/2ml Inj IVP PRN (18:00)
--- NOTE | 2020-08-01 18:55 | NUR ---
1430: Spoke with Dr. Tae MD notified regarding pt vomiting overnight. Verbal orders to start reglan and ok to restart tube feeds. 1800: Sedation titrated per MD orders. Pt awake. Pt repositioned. Mouth care done. 191: Report given to RAKEL Ferreira. All questions answered. Care continues.
[2020-08-01] MEDS: Dyna-Hex 2% Top Sol 2oz TOPIC SCH (20:47)
[2020-08-01] MEDS: Docusate 100mg/10ml Liq GT SCH (20:47)
[2020-08-01] MEDS: Miralax 17gm pkt ORAL SCH (20:48)
[2020-08-02] VITALS (37 sets, daily range): BP systolic 112–196; BP diastolic 49–129
[2020-08-02] MEDS: Metoclopramide 10mg/2ml Inj IVP SCH ×4 (00:40→17:07)
[2020-08-02] MEDS: Meropenem 1 GM in NS 55 ML IVPB SCH ×3 (04:53→18:59)
[2020-08-02 05:03] LABS: ALBUMIN 2.3 G/DL (3.4-5.0); ALBUMIN/GLOBULIN RATIO 0.6 (1.0-2.7); BILIRUBIN,TOTAL 0.5 MG/DL (0.2-1.0); CALCIUM 7.8 MG/DL (8.5-10.1); CREATININE 1.1 MG/DL (0.55-1.30); POTASSIUM 4.8 MMOL/L (3.5-5.1)
[2020-08-02 05:09] LABS: PHOSPHORUS 3.1 MG/DL (2.5-4.9)
[2020-08-02] MEDS: Midodrine 10mg tab GT SCH ×3 (06:10→22:00)
[2020-08-02] MEDS: Vancomycin 1.25gm Premix q24h IVPB SCH ×2 (06:10→17:06)
--- NOTE | 2020-08-02 06:24 | Hematology/Onc Progress Note ---
Assessment/Plan Assessment/Plan # Deep vein thrombosis of the right calf --> given onoing anemia and low plts --> consider ivc if bleeding--once stable, needs it placed --> once stable, for radiology and ivc filter placement --> on lovenox bid now # Thrombocytopenia is due to infection/underlying covid19+++ --> ABX ceftriaxone -->zosyn-->off-->meropenem/vanc --> on steriods likely cause of initial wbc --> per pulm --> plt 107->156-->192-->205 --> smear reviewed # Leukocytosis due to Pneumonia due to COVID-19 virus --> per pulm rx -> sp remdesivir --> ABX vanc/meropenem --> wbc 11.9-->11-->21-->8.8-->11.7-->13-->24-->9 # Anemia due to chronic disease --> hgb goal is >7 --> transfuse prn --> ferritin is >1000 --> hold off on iron --> 10-->9.8->9-->8-->8.2->>7.1-->7.9->7.5-->9.5-->8.5-->8.8->8.4 --> 1 unit prbc 07/24 # Elevated ddimer due to covid19++ --> duplex legs is negative --> underlying covid rx # Hypoxia -> due to covid19 --> steriods as needed # Hypoxemia --> rx same as above # Respiratory failure --> on vent/trach --> per pulm # Diabetes mellitus out of control --> hgb a1c goal <7 # Dysphagia --> s/p peg # Poor prognosis # Dvt ppx ivc filter once more stable --> dvt ppx now lovenox sq Appreciate consultation and bowen RN Subjective HEENT: Denies: no symptoms, eye pain, blurred vision, tearing, double vision, ear pain, ear discharge, nose pain, nose congestion, throat pain, throat swelling, mouth pain, mouth swelling, other Cardiovascular: Denies: no symptoms, chest pain, edema, irregular heart rate, lightheadedness, palpitations, syncope, other Respiratory: Denies: no symptoms, cough, shortness of breath, SOB with excertion, SOB at rest, sputum, wheezing, other Gastrointestinal/Abdominal: Denies: no symptoms, abdomen distended, abdominal pain, black stools, tarry stools, blood in stool, constipated, diarrhea, difficulty swallowing, nausea, poor appetite, poor fluid intake, rectal bleeding, vomiting, other Neurologic/Psychiatric: Denies: no symptoms, anxiety, depressed, emotional problems, headache, numbness, paresthesia, pre-existing deficit, seizure, tingling, tremors, weakness, other Endocrine: Denies: no symptoms, excessive sweating, flushing, intolerance to cold, intolerance to heat, increased hunger, increased thirst, increased urine, unexplained weight gain, unexplained weight loss, other Allergies: Coded Allergies: No Known Allergies (Unverified , 05/28/20) Subjective 06/10 nv, on vent, with ogt, on fentanyl and versed, plt stable 06/11 nv, vent adjusted is on ogt, meds reviewed 06/12 nv, vent, meds noted, labs noted, no bleeding, hgb 10.4 06/13 nv, is on vent, meds reviewed, no bleeding, cbc reviewed 06/14 nv, on vent, tachy, labs reviewed, gross hematuria, febrile overnight, abx 06/17 nv, on vent, labs noted, no major changes, feeling better overnight 06/18 nv, meds reviewed, labs noted, no major events, hgb 8.6 06/19 nv, remains intubated, with fluids, labs reviewed, meds noted 06/20 nv, intubated remains on restraints, meds noted as well, as labs 06/21 nv, remains on vent, on restraints, meds reviewed, labs noted 06/22: covering Dr. Del Cid no acute events 06/23 sedated, on vent, nv, intubated, meds reviewed, versed 06/24 nv, on vent, no night sweats, no bleeding, remains in icu 06/25 nv, on vent, icu, meds noted, no bleeding, comfortable 06/26 nv, on versed, icu, weaning parameters, labs noted 06/27 nv, overnight fighting vent, as per pulm fentanyl on board 06/28 nv, on vent, labs reviewed, as per pulm, meds noted 06/30 nv, icu, labs pending, is on fentanyl, versed, no new changes 07/01 nv, icu, is on vent, labs pending, no new changes per rn 07/02 nv, icu is on vent, labs noted, hgb is stable 07/03 nv, icu, is on vent, potential trrach when stable, cbc reviewed 07/04 icu, nv, labs are noted, stable for trach today bowen Lizama 07/05 icu, nv, on vent, with ng and picc in place, labs noted, s/p trach 07/07 icu, nv, on tv, no bleeding, labs noted, meds reviewed 07/08 icu, nv, on tv, labs reviewed, meds noted, no bleeding 07/09 icu, nv, meds noted, no bleeding, blood transfusion was completed 07/10 icu, nv, labs ntoed, no bleeding, hgb improved, hgb 7.8 07/11 icu, nv, labs reviewed, hgb is improved, for ivcf if stabilizes 07/12 icu, nv, labs reviewed, meds noted, no bleeding, remains on vent 07/13 icu, on vent, nv, no bleeding, labs reviewed, no major events, bowen rn 07/14 icu, on vent, nv, tolerating ngt feeds, bowen Rn, meds reviewed 07/15 icu, on vent, trach, tolerating ngt, meds noted, no bleeding 07/16 icu, vent, labs are noted, with trach, is stable, hgb 9.2 07/17 icu, had a bm overnight, remains on vent with trach, labs noted 07/18 icu, nv, labs are ntoed, no bleeding, on trach, on levophed 07/20 nc, icu, meds noted, v/t, no bleeding, labs noted, on versed 07/21 nv, trach/vent, tube feeds on hold, labs reviewed, icu 07/22 nv, icu, bp remains high, on v/t, labs noted, no bleeding 07/23 nv, ct is in place, on v/t, meds reviewed, in icu, on LEVO 07/24 nv, ct with blood secretions, to get 1 unit prbc today, icu 07/25 icu, nv, trach/v, obtunded, sedated, no bleeding, dw rn 07/26 icu, nv, v/t, with gt, remains obtunded, as well as sedated, labs noted 07/27: no events. 07/28: remains intubated on vent 07/29 agitated, tachypneic, tachycardic is on vent, labs reviewed, meds noted 07/30 vent setting adjusted, is afebrile, no bleeding, tachycardic, labs noted 07/31 icu, trach/vent, on fentanyl gtt, labs reviewed, no bleeding 08/01 icu, nv, on t/v, fentanyl, hgb 9.4, no hemolysis, meds noted 08/02 icu, nv, t/v, labs reviewed, meds noted, no bleeding, did have vomiting o/n Objective Objective Current Medications Medications (Trade) Dose Ordered Sig/Zelda Route PRN Reason Start Time Stop Time Status Last Admin Dose Admin Acetaminophen (Tylenol) 650 mg Q4H PRN NG Temp >100.5 07/27/20 03:45 08/26/20 03:44 07/29/20 20:24 Calcitonin [place] (Miacalcin) 1 sprays DAILY NASAL 07/22/20 14:00 10/20/20 13:59 08/01/20 08:35 Chlorhexidine Gluconate (Inna-Hex 2%) 1 applic DAILY@2000 TOPIC 07/20/20 20:00 10/18/20 19:59 08/01/20 20:47 Dextrose (Dextrose 50%) 25 ml Q30M PRN IV Hypoglycemia 06/05/20 10:45 09/03/20 10:44 Dextrose (Dextrose 50%) 50 ml Q30M PRN IV Hypoglycemia 06/05/20 10:45 09/03/20 10:44 Docusate Sodium (Colace) 100 mg EVERY 12 HOURS GT 08/01/20 21:00 08/25/20 17:59 08/01/20 20:47 Enoxaparin Sodium (Lovenox) 110 mg EVERY 12 HOURS SUBQ 07/17/20 21:00 10/15/20 20:59 08/01/20 21:00 Fentanyl Citrate 250 ml @ 0 mls/hr Q24H PRN IV . 07/31/20 12:00 08/02/20 11:59 08/01/20 08:00 Furosemide (Lasix) 40 mg EVERY 12 HOURS IV 08/01/20 11:00 08/31/20 10:59 08/01/20 20:48 Guaifenesin/ Codeine Phosphate (Robitussin with codeine) 5 ml Q6H PRN NG For Cough 07/14/20 14:15 08/13/20 14:14 07/18/20 21:44 Lansoprazole (Prevacid) 30 mg DAILY GT 07/18/20 09:00 08/09/20 08:59 08/01/20 08:34 Meropenem 1 gm/ Sodium Chloride 55 ml @ 110 mls/hr Q8H IVPB 07/22/20 12:00 08/06/20 23:59 08/02/20 04:53 Metoclopramide HCl (Reglan) 10 mg Q6H IVP 08/01/20 18:00 08/31/20 17:59 08/02/20 06:13 Midazolam HCl 200 ml @ 0 mls/hr Q24H PRN IV SEDATION 07/29/20 14:15 08/05/20 14:14 07/30/20 00:37 Midodrine (Pro-Amatine) 10 mg Q8HR GT 06/30/20 14:00 09/12/20 13:59 08/02/20 06:10 Polyethylene Glycol (Miralax) 17 gm BEDTIME ORAL 07/26/20 21:00 08/25/20 20:59 08/01/20 20:48 Quetiapine Fumarate (SEROqueL) 50 mg Q8HR GT 07/31/20 14:00 08/30/20 13:59 08/02/20 06:12 Vancomycin HCl 250 ml @ 166.667 mls/hr Q12H IVPB 08/01/20 05:00 08/06/20 04:59 08/02/20 06:10 Vancomycin HCl (Vanco pharmacy to dose) 1 ea DAILY PRN MISC Per rx protocol 07/31/20 11:45 08/30/20 11:44 Last 24 Hour Vital Signs Date Time Temp Pulse Resp B/P (MAP) Pulse Ox O2 Delivery O2 Flow Rate FiO2 08/02/20 05:17 96 29 50 08/02/20 03:16 96 28 50 08/02/20 02:00 95 33 141/49 (79) 99 08/02/20 01:30 96 45 131/83 (99) 99 08/02/20 01:07 98 31 50 08/02/20 01:00 42 138/76 Mechanical Ventilator 50 08/02/20 01:00 99 34 128/74 (92) 99 08/02/20 00:30 92 46 131/83 (99) 99 08/02/20 00:00 87 34 112/85 (94) 100 08/02/20 00:00 40 117/84 Mechanical Ventilator 50 08/02/20 00:00 50 08/02/20 00:00 Mechanical Ventilator Mechanical Ventilator 08/01/20 23:00 38 104/23 Mechanical Ventilator 50 08/01/20 23:00 90 36 104/23 (50) 100 08/01/20 22:55 91 31 50 08/01/20 22:30 88 46 123/75 (91) 100 08/01/20 22:00 91 37 126/80 (95) 100 08/01/20 22:00 37 128/58 Mechanical Ventilator 50 08/01/20 21:34 97 34 50 08/01/20 21:30 96 39 125/69 (87) 100 08/01/20 21:00 94 31 117/78 (91) 100 08/01/20 21:00 38 117/72 Mechanical Ventilator 50 08/01/20 20:30 97 49 116/58 (77) 100 08/01/20 20:15 97 38 119/48 (71) 100 08/01/20 20:00 Mechanical Ventilator Mechanical Ventilator 08/01/20 20:00 30 134/43 Mechanical Ventilator 50 08/01/20 20:00 99 36 134/43 (73) 98 08/01/20 20:00 50 08/01/20 19:30 97 31 128/93 (105) 100 08/01/20 19:12 98 25 50 08/01/20 19:00 97 37 134/89 (104) 99 08/01/20 19:00 38 126/80 Mechanical Ventilator 50 08/01/20 18:30 97 29 132/82 (99) 99 08/01/20 18:00 26 132/82 Mechanical Ventilator 50 08/01/20 18:00 95 22 133/82 (99) 95 08/01/20 17:30 94 26 120/47 (71) 100 3/11/21 17:00 28 124/69 Mechanical Ventilator 50 08/01/20 17:00 95 29 124/69 (87) 100 08/01/20 16:30 97 29 111/42 (65) 96 08/01/20 16:02 95 08/01/20 16:00 24 124/54 Mechanical Ventilator 50 08/01/20 16:00 97.3 97 27 124/54 (77) 98 08/01/20 16:00 Mechanical Ventilator Mechanical Ventilator 08/01/20 16:00 50 08/01/20 15:30 92 22 109/66 (80) 100 08/01/20 15:24 92 28 50 08/01/20 15:00 95 23 111/63 (79) 100 08/01/20 15:00 26 111/63 Mechanical Ventilator 60 08/01/20 14:30 96 27 113/67 (82) 100 08/01/20 14:00 95 25 117/59 (78) 100 08/01/20 14:00 28 117/59 Mechanical Ventilator 60 08/01/20 13:30 96 24 112/69 (83) 100 08/01/20 13:00 95 20 108/67 (81) 100 08/01/20 13:00 29 108/67 Mechanical Ventilator 60 08/01/20 12:30 95 25 118/67 (84) 100 08/01/20 12:30 60 08/01/20 12:00 95 08/01/20 12:00 97.1 99 35 115/98 (104) 100 08/01/20 12:00 31 112/63 Mechanical Ventilator 60 08/01/20 12:00 60 08/01/20 12:00 Mechanical Ventilator Mechanical Ventilator 08/01/20 11:30 93 25 111/67 (82) 100 08/01/20 11:30 31 115/98 70 08/01/20 11:26 100 19 70 08/01/20 11:00 90 27 112/65 (81) 100 08/01/20 11:00 29 108/73 Mechanical Ventilator 70 08/01/20 10:45 29 111/67 Mechanical Ventilator 70 08/01/20 10:30 92 27 115/66 (82) 100 08/01/20 10:30 28 115/66 Mechanical Ventilator 70 08/01/20 10:00 28 116/63 Mechanical Ventilator 70 08/01/20 10:00 93 33 116/63 (80) 100 08/01/20 09:30 93 24 110/68 (82) 100 08/01/20 09:00 31 108/49 Mechanical Ventilator 70 08/01/20 09:00 95 21 108/49 (68) 100 08/01/20 08:30 96 27 110/74 (86) 100 08/01/20 08:00 70 08/01/20 08:00 Mechanical Ventilator Mechanical Ventilator 08/01/20 08:00 28 110/61 Mechanical Ventilator 70 08/01/20 08:00 98 08/01/20 08:00 97.5 96 37 105/65 (78) 100 08/01/20 07:30 99 28 112/66 (81) 100 08/01/20 07:22 95 21 70 08/01/20 07:00 97 25 114/68 (83) 100 08/01/20 07:00 29 114/68 Mechanical Ventilator 70 08/01/20 06:30 100 31 118/76 (90) 100 08/01/20 06:00 100 23 112/74 (87) 100 08/01/20 05:00 101 33 111/88 (96) 100 08/01/20 04:00 101 08/01/20 04:00 Mechanical Ventilator Mechanical Ventilator 08/01/20 04:00 102 29 128/84 (99) 100 08/01/20 04:00 70 08/01/20 03:28 99 28 70 08/01/20 03:00 98 18 116/80 (92) 100 08/01/20 02:30 100 22 126/82 (97) 100 08/01/20 02:00 100 24 119/80 (93) 100 08/01/20 01:00 99 19 124/79 (94) 100 08/01/20 00:00 Mechanical Ventilator Mechanical Ventilator 08/01/20 00:00 103 23 120/77 (91) 100 08/01/20 00:00 101 08/01/20 00:00 70 07/31/20 23:30 103 23 129/77 (94) 100 07/31/20 23:18 104 27 70 07/31/20 23:00 103 18 132/77 (95) 100 07/31/20 23:00 21 129/77 Mechanical Ventilator 70 07/31/20 22:30 105 21 120/78 (92) 100 07/31/20 22:00 21 128/80 Mechanical Ventilator 70 07/31/20 22:00 112 25 132/81 (98) 100 07/31/20 21:30 105 25 119/76 (90) 100 07/31/20 21:00 22 135/81 Mechanical Ventilator 70 07/31/20 21:00 105 22 128/76 (93) 100 07/31/20 20:30 104 19 120/79 (93) 100 07/31/20 20:00 Mechanical Ventilator Mechanical Ventilator 07/31/20 20:00 106 22 120/72 (88) 100 07/31/20 20:00 21 112/70 Mechanical Ventilator 70 07/31/20 19:30 106 22 117/81 (93) 100 07/31/20 19:20 112 23 70 07/31/20 19:00 107 33 120/80 (93) 100 07/31/20 19:00 107 33 120/80 (93) 100 07/31/20 18:00 108 21 125/69 (87) 100 07/31/20 18:00 35 131/82 Mechanical Ventilator 70 07/31/20 17:00 27 131/82 Mechanical Ventilator 70 07/31/20 17:00 107 22 131/82 (98) 100 07/31/20 17:00 104 16 131/82 (98) 100 07/31/20 16:30 106 18 126/85 (99) 100 07/31/20 16:00 106 07/31/20 16:00 97.8 107 19 127/79 (95) 100 07/31/20 16:00 28 127/79 Mechanical Ventilator 70 07/31/20 16:00 Mechanical Ventilator Mechanical Ventilator 07/31/20 16:00 70 07/31/20 15:55 110 21 70 07/31/20 15:30 108 17 104/72 (83) 100 07/31/20 15:00 109 20 125/75 (92) 100 07/31/20 15:00 20 125/75 Mechanical Ventilator 70 07/31/20 14:30 111 22 117/71 (86) 100 07/31/20 14:00 117 29 137/82 (100) 87 07/31/20 14:00 31 137/82 Mechanical Ventilator 70 07/31/20 14:00 116 34 137/82 (100) 100 07/31/20 13:46 116 32 126/54 (78) 07/31/20 13:00 28 126/54 70 07/31/20 13:00 116 29 126/54 (78) 87 07/31/20 12:30 109 31 129/82 (98) 100 07/31/20 12:00 104 07/31/20 12:00 70 07/31/20 12:00 117 34 138/63 (88) 100 07/31/20 12:00 27 132/76 Mechanical Ventilator 70 07/31/20 12:00 Mechanical Ventilator Mechanical Ventilator 07/31/20 12:00 98.8 118 40 132/76 (94) 100 07/31/20 11:30 113 34 132/85 (101) 100 07/31/20 11:14 115 32 70 07/31/20 11:00 113 27 134/79 (97) 100 07/31/20 11:00 33 134/79 Mechanical Ventilator 80 07/31/20 10:30 112 28 125/73 (90) 100 07/31/20 10:00 114 29 120/69 (86) 100 07/31/20 10:00 29 120/69 Mechanical Ventilator 80 07/31/20 09:30 108 25 124/66 (85) 100 07/31/20 09:00 109 26 113/83 (93) 100 07/31/20 09:00 26 113/83 Mechanical Ventilator 80 07/31/20 08:30 110 26 126/74 (91) 100 07/31/20 08:00 97.5 106 16 123/74 (90) 99 07/31/20 08:00 16 123/74 Mechanical Ventilator 80 07/31/20 08:00 Mechanical Ventilator Mechanical Ventilator 07/31/20 08:00 100 07/31/20 08:00 109 07/31/20 07:30 110 23 119/73 (88) 99 07/31/20 07:09 104 17 80 07/31/20 07:00 111 21 119/73 (88) 99 07/31/20 07:00 21 119/78 Mechanical Ventilator 100 07/31/20 06:30 98.0 113 44 138/80 (99) 94 Intake and Output 08/01/20 08/02/20 19:00 07:00 Intake Total 191 ml 176 ml Output Total 1075 ml 0 ml Balance -884 ml 176 ml IV Total 111 ml 36 ml Tube Feeding 80 ml 140 ml Output Urine Total 1075 ml Chest Tube Drainage Total 0 ml 0 ml Labs Test 07/31/20 03:35 07/31/20 13:10 07/31/20 14:15 07/31/20 18:12 White Blood Count 23.8 K/UL (4.8-10.8) Red Blood Count 3.06 M/UL (4.20-5.40) Hemoglobin 8.8 G/DL (12.0-16.0) Hematocrit 29.3 % (37.0-47.0) Mean Corpuscular Volume 96 FL (80-99) Mean Corpuscular Hemoglobin 28.8 PG (27.0-31.0) Mean Corpuscular Hemoglobin Concent 30.1 G/DL (32.0-36.0) Red Cell Distribution Width 18.2 % (11.6-14.8) Platelet Count 345 K/UL (150-450) Mean Platelet Volume 7.2 FL (6.5-10.1) Neutrophils (%) (Auto) % (45.0-75.0) Lymphocytes (%) (Auto) % (20.0-45.0) Monocytes (%) (Auto) % (1.0-10.0) Eosinophils (%) (Auto) % (0.0-3.0) Basophils (%) (Auto) % (0.0-2.0) Differential Total Cells Counted 100 Neutrophils % (Manual) 80 % (45-75) Lymphocytes % (Manual) 11 % (20-45) Monocytes % (Manual) 7 % (1-10) Eosinophils % (Manual) 2 % (0-3) Basophils % (Manual) 0 % (0-2) Band Neutrophils 0 % (0-8) Platelet Estimate Adequate Platelet Morphology Normal Hypochromasia 1+ Anisocytosis 1+ Sodium Level 142 MMOL/L (136-145) Potassium Level 4.4 MMOL/L (3.5-5.1) Chloride Level 100 MMOL/L (98-107) Carbon Dioxide Level 39 MMOL/L (21-32) Anion Gap 3 mmol/L (5-15) Blood Urea Nitrogen 5 mg/dL (7-18) Creatinine 0.4 MG/DL (0.55-1.30) Estimat Glomerular Filtration Rate > 60 mL/min (>60) Glucose Level 172 MG/DL (74-106) Calcium Level 8.3 MG/DL (8.5-10.1) Total Bilirubin 0.7 MG/DL (0.2-1.0) Aspartate Amino Transf (AST/SGOT) 25 U/L (15-37) Alanine Aminotransferase (ALT/SGPT) 13 U/L (12-78) Alkaline Phosphatase 82 U/L (46-116) Total Protein 7.0 G/DL (6.4-8.2) Albumin 2.4 G/DL (3.4-5.0) Globulin 4.6 g/dL Albumin/Globulin Ratio 0.5 (1.0-2.7) POC Whole Blood Glucose 144 MG/DL (74-106) 135 MG/DL (74-106) Urine Color [place] Urine Appearance Cloudy Urine pH 6 (4.5-8.0) Urine Specific [place] 1.015 (1.005-1.035) Urine Protein 3+ (NEGATIVE) Urine Glucose (UA) Negative (NEGATIVE) Urine Ketones 1+ (NEGATIVE) Urine Blood 5+ (NEGATIVE) Urine Nitrite Positive (NEGATIVE) Urine Bilirubin Negative (NEGATIVE) Urine Urobilinogen 1 MG/DL (0.0-1.0) Urine Leukocyte Esterase 3+ (NEGATIVE) Urine RBC Tntc /HPF (0 - 2) Urine WBC 10-15 /HPF (0 - 2) Urine Squamous Epithelial Cells None /LPF (NONE/OCC) Urine Bacteria Moderate /HPF (NONE) Test 08/01/20 04:45 08/01/20 12:40 08/01/20 17:36 08/02/20 03:50 White Blood Count 9.7 K/UL (4.8-10.8) Red Blood Count 2.90 M/UL (4.20-5.40) Hemoglobin 8.4 G/DL (12.0-16.0) Hematocrit 27.8 % (37.0-47.0) Mean Corpuscular Volume 96 FL (80-99) Mean Corpuscular Hemoglobin 28.8 PG (27.0-31.0) Mean Corpuscular Hemoglobin Concent 30.0 G/DL (32.0-36.0) Red Cell Distribution Width 18.2 % (11.6-14.8) Platelet Count 215 K/UL (150-450) Mean Platelet Volume 8.0 FL (6.5-10.1) Neutrophils (%) (Auto) 78.2 % (45.0-75.0) Lymphocytes (%) (Auto) 13.3 % (20.0-45.0) Monocytes (%) (Auto) 6.9 % (1.0-10.0) Eosinophils (%) (Auto) 1.0 % (0.0-3.0) Basophils (%) (Auto) 0.6 % (0.0-2.0) Sodium Level 143 MMOL/L (136-145) 142 MMOL/L (136-145) Potassium Level 4.7 MMOL/L (3.5-5.1) 4.8 MMOL/L (3.5-5.1) Chloride Level 101 MMOL/L (98-107) 99 MMOL/L (98-107) Carbon Dioxide Level 40 MMOL/L (21-32) 39 MMOL/L (21-32) Anion Gap 1 mmol/L (5-15) 4 mmol/L (5-15) Blood Urea Nitrogen 2 mg/dL (7-18) 11 mg/dL (7-18) Creatinine 0.5 MG/DL (0.55-1.30) 1.1 MG/DL (0.55-1.30) Estimat Glomerular Filtration Rate > 60 mL/min (>60) 52.8 mL/min (>60) Glucose Level 131 MG/DL (74-106) 119 MG/DL (74-106) Calcium Level 8.1 MG/DL (8.5-10.1) 7.8 MG/DL (8.5-10.1) POC Whole Blood Glucose 125 MG/DL (74-106) 120 MG/DL (74-106) Uric Acid 4.5 MG/DL (2.6-7.2) Phosphorus Level 3.1 MG/DL (2.5-4.9) Magnesium Level 1.6 MG/DL (1.8-2.4) Total Bilirubin 0.5 MG/DL (0.2-1.0) Aspartate Amino Transf (AST/SGOT) 30 U/L (15-37) Alanine Aminotransferase (ALT/SGPT) 18 U/L (12-78) Alkaline Phosphatase 70 U/L (46-116) C-Reactive Protein, Quantitative 4.9 mg/dL (0.00-0.90) Pro-B-Type Natriuretic Peptide 2896 pg/mL (0-125) Total Protein 6.3 G/DL (6.4-8.2) Albumin 2.3 G/DL (3.4-5.0) Globulin 4.0 g/dL Albumin/Globulin Ratio 0.6 (1.0-2.7) Vancomycin Level Trough 17.2 ug/mL (5.0-12.0) Height (Feet): 5 Height (Inches): 5.00 Weight (Pounds): 223 Objective GeNL: nv HEENT: ngt++ Pulm: vent/trach++ CV: rrr Abd: soft, nt, nd ++gt Ext: no cce Myron Condon MD Aug 02, 2020 06:23
--- NOTE | 2020-08-02 07:00 | NUR ---
NURSE NOTES: Pt received from RAKEL Ferreira. Pt is awake, opens eyes spontaneously; unable to follow simple commands; RASS noted 0; pt maintains eye contact when called by name for greater than 15 sec. Pt withdraws to pain; gag reflex intact, bilat pupils equal and round 3mm with sluggish rxn to light. Pt is ST to library monitor with 2+ radial pulses and dorsalis pedis pulses. 2+ pitting edema noted to BUE. Pt is trached to vent on the following settings: AC 15 TV 400 FiO2 50 % Peep 5. lung vela noted diminished upon auscultation. Right upper chest thoravent to pleurevac connected to H20 seal noted without airleak. Pt has a GT running Glucerna 1.2 at 25 cc/hr without gastric residuals noted. Will advance to goal as tolerated. Abdomen is round, soft, and non-tender w/ active bowel sounds to all quadrants. F/C noted draining light jordyn, clear urine. Skin is intact. ROX PICC noted with dry and intact dressing running fentanyl gtt at 50 mcg/hr. Bed in lowest position, alarm on, side rails up x 2, call light within reach. Will continue to monitor.
--- NOTE | 2020-08-02 08:00 | NUR ---
NURSE NOTES: Pt repositioned. Afebrile. No distress noted.
--- NOTE | 2020-08-02 08:37 | NUR ---
RADIOLOGY DEPT., CHEST X-RAY DONE.-P.DYE
[2020-08-02] MEDS: Docusate 100mg/10ml Liq GT SCH ×2 (08:45→21:44)
[2020-08-02] MEDS: Enoxaparin 120 mg inj SUBQ SCH ×2 (08:46→21:46)
--- NOTE | 2020-08-02 10:00 | NUR ---
NURSE NOTES: Pt repositioned. PO care provided. Pt cleaned. Seen by Dr Devine and Hayden Arana. Addendum: 08/02/20 at 1122 by Winsome Em RN Amendment: FiO2 titrated down to 45 %.
--- NOTE | 2020-08-02 10:15 | Infectious Diseases Prog Note ---
Assessment/Plan Assessment/Plan antibiotics : vancomycin iv, meropenem A 1. covid 19 pneumonia s/p remdesivir s/p solumedrol 2. respiratory failure s/p tracheostomy 3. pseudomonas pneumonia 4. leucocytosis improving 5. gram negative sepsis 6. pneumothorax s/p CT placement 7. P 1. continue iv vancomycin, meropenem 2. d/c PICC line 3. will follow up cultures Subjective ROS Limited/Unobtainable: Yes Allergies: Coded Allergies: No Known Allergies (Unverified , 05/28/20) Objective Last 24 Hour Vital Signs Date Time Temp Pulse Resp B/P (MAP) Pulse Ox O2 Delivery O2 Flow Rate FiO2 08/02/20 09:46 45 08/02/20 09:30 116 34 148/102 (117) 92 08/02/20 09:00 109 33 146/83 (104) 08/02/20 08:30 109 36 156/78 (104) 08/02/20 08:00 97.7 107 39 151/75 (100) 100 08/02/20 08:00 100 08/02/20 08:00 50 08/02/20 07:30 106 31 113/65 (81) 100 08/02/20 07:15 111 47 50 08/02/20 07:00 108 31 146/73 (97) 100 08/02/20 06:30 107 32 129/84 (99) 97 08/02/20 06:00 105 142/65 (90) 99 08/02/20 05:30 97 36 130/81 (97) 99 08/02/20 05:17 96 29 50 08/02/20 05:00 96 42 134/79 (97) 99 08/02/20 04:30 93 45 137/91 (106) 98 08/02/20 04:00 Mechanical Ventilator Mechanical Ventilator 08/02/20 04:00 92 48 151/80 (103) 98 08/02/20 04:00 50 08/02/20 04:00 93 08/02/20 03:30 93 27 148/85 (106) 98 08/02/20 03:16 96 28 50 08/02/20 03:15 91 40 130/84 (99) 99 08/02/20 03:00 91 44 139/73 (95) 100 08/02/20 02:00 95 33 141/49 (79) 99 08/02/20 01:30 96 45 131/83 (99) 99 08/02/20 01:07 98 31 50 08/02/20 01:00 42 138/76 Mechanical Ventilator 50 08/02/20 01:00 99 34 128/74 (92) 99 08/02/20 00:30 92 46 131/83 (99) 99 08/02/20 00:00 92 08/02/20 00:00 87 34 112/85 (94) 100 08/02/20 00:00 40 117/84 Mechanical Ventilator 50 08/02/20 00:00 50 08/02/20 00:00 Mechanical Ventilator Mechanical Ventilator 08/01/20 23:00 38 104/23 Mechanical Ventilator 50 08/01/20 23:00 90 36 104/23 (50) 100 08/01/20 22:55 91 31 50 08/01/20 22:30 88 46 123/75 (91) 100 08/01/20 22:00 91 37 126/80 (95) 100 08/01/20 22:00 37 128/58 Mechanical Ventilator 50 08/01/20 21:34 97 34 50 08/01/20 21:30 96 39 125/69 (87) 100 08/01/20 21:00 94 31 117/78 (91) 100 08/01/20 21:00 38 117/72 Mechanical Ventilator 50 08/01/20 20:30 97 49 116/58 (77) 100 08/01/20 20:15 97 38 119/48 (71) 100 08/01/20 20:00 Mechanical Ventilator Mechanical Ventilator 08/01/20 20:00 30 134/43 Mechanical Ventilator 50 08/01/20 20:00 96 08/01/20 20:00 99 36 134/43 (73) 98 08/01/20 20:00 50 08/01/20 19:30 97 31 128/93 (105) 100 08/01/20 19:12 98 25 50 08/01/20 19:00 97 37 134/89 (104) 99 08/01/20 19:00 38 126/80 Mechanical Ventilator 50 08/01/20 18:30 97 29 132/82 (99) 99 08/01/20 18:00 26 132/82 Mechanical Ventilator 50 08/01/20 18:00 95 22 133/82 (99) 95 08/01/20 17:30 94 26 120/47 (71) 100 08/01/20 17:00 28 124/69 Mechanical Ventilator 50 08/01/20 17:00 95 29 124/69 (87) 100 08/01/20 16:30 97 29 111/42 (65) 96 08/01/20 16:02 95 08/01/20 16:00 24 124/54 Mechanical Ventilator 50 08/01/20 16:00 97.3 97 27 124/54 (77) 98 08/01/20 16:00 Mechanical Ventilator Mechanical Ventilator 08/01/20 16:00 50 08/01/20 15:30 92 22 109/66 (80) 100 08/01/20 15:24 92 28 50 08/01/20 15:00 95 23 111/63 (79) 100 08/01/20 15:00 26 111/63 Mechanical Ventilator 60 08/01/20 14:30 96 27 113/67 (82) 100 08/01/20 14:00 95 25 117/59 (78) 100 08/01/20 14:00 28 117/59 Mechanical Ventilator 60 08/01/20 13:30 96 24 112/69 (83) 100 08/01/20 13:00 95 20 108/67 (81) 100 08/01/20 13:00 29 108/67 Mechanical Ventilator 60 08/01/20 12:30 95 25 118/67 (84) 100 08/01/20 12:30 60 08/01/20 12:00 95 08/01/20 12:00 97.1 99 35 115/98 (104) 100 08/01/20 12:00 31 112/63 Mechanical Ventilator 60 08/01/20 12:00 60 08/01/20 12:00 Mechanical Ventilator Mechanical Ventilator 08/01/20 11:30 93 25 111/67 (82) 100 08/01/20 11:30 31 115/98 70 08/01/20 11:26 100 19 70 08/01/20 11:00 90 27 112/65 (81) 100 08/01/20 11:00 29 108/73 Mechanical Ventilator 70 08/01/20 10:45 29 111/67 Mechanical Ventilator 70 08/01/20 10:30 92 27 115/66 (82) 100 08/01/20 10:30 28 115/66 Mechanical Ventilator 70 Height (Feet): 5 Height (Inches): 5.00 Weight (Pounds): 223 HEENT: status post trach Microbiology Date/Time Source Procedure Growth Status 08/01/20 04:45 Blood Blood Culture - Preliminary Resulted 07/31/20 14:15 Urine,Clean Catch Urine Culture - Preliminary NO GROWTH AFTER 24 HOURS Resulted 07/31/20 14:15 Urine,Clean Catch Urine Culture - Preliminary NO GROWTH AFTER 24 HOURS Resulted 07/31/20 14:15 Sputum Gram Stain - Final Resulted 07/31/20 14:15 Sputum Culture - Preliminary Gram Negative Bacillus 1 Resulted Laboratory Tests Test 08/01/20 12:40 08/01/20 17:36 08/02/20 03:50 POC Whole Blood Glucose 125 MG/DL (74-106) H 120 MG/DL (74-106) H Sodium Level 142 MMOL/L (136-145) Potassium Level 4.8 MMOL/L (3.5-5.1) Chloride Level 99 MMOL/L (98-107) Carbon Dioxide Level 39 MMOL/L (21-32) H Anion Gap 4 mmol/L (5-15) L Blood Urea Nitrogen 11 mg/dL (7-18) Creatinine 1.1 MG/DL (0.55-1.30) # Estimat Glomerular Filtration Rate 52.8 mL/min (>60) Glucose Level 119 MG/DL (74-106) H Uric Acid 4.5 MG/DL (2.6-7.2) Calcium Level 7.8 MG/DL (8.5-10.1) L Phosphorus Level 3.1 MG/DL (2.5-4.9) Magnesium Level 1.6 MG/DL (1.8-2.4) L Total Bilirubin 0.5 MG/DL (0.2-1.0) Aspartate Amino Transf (AST/SGOT) 30 U/L (15-37) Alanine Aminotransferase (ALT/SGPT) 18 U/L (12-78) Alkaline Phosphatase 70 U/L (46-116) C-Reactive Protein, Quantitative 4.9 mg/dL (0.00-0.90) H Pro-B-Type Natriuretic Peptide 2896 pg/mL (0-125) H Total Protein 6.3 G/DL (6.4-8.2) L Albumin 2.3 G/DL (3.4-5.0) L Globulin 4.0 g/dL Albumin/Globulin Ratio 0.6 (1.0-2.7) L Vancomycin Level Trough 17.2 ug/mL (5.0-12.0) H Current Medications Medications (Trade) Dose Ordered Sig/Zelda Route PRN Reason Start Time Stop Time Status Last Admin Dose Admin Acetaminophen (Tylenol) 650 mg Q4H PRN NG Temp >100.5 07/27/20 03:45 08/26/20 03:44 07/29/20 20:24 Calcitonin [place] (Miacalcin) 1 sprays DAILY NASAL 07/22/20 14:00 10/20/20 13:59 08/02/20 08:48 Chlorhexidine Gluconate (Inna-Hex 2%) 1 applic DAILY@2000 TOPIC 07/20/20 20:00 10/18/20 19:59 08/01/20 20:47 Dextrose (Dextrose 50%) 25 ml Q30M PRN IV Hypoglycemia 06/05/20 10:45 09/03/20 10:44 Dextrose (Dextrose 50%) 50 ml Q30M PRN IV Hypoglycemia 06/05/20 10:45 09/03/20 10:44 Docusate Sodium (Colace) 100 mg EVERY 12 HOURS GT 08/01/20 21:00 08/25/20 17:59 08/02/20 08:45 Enoxaparin Sodium (Lovenox) 110 mg EVERY 12 HOURS SUBQ 07/17/20 21:00 10/15/20 20:59 08/02/20 08:46 Fentanyl Citrate 250 ml @ 0 mls/hr Q24H PRN IV . 07/31/20 12:00 08/02/20 11:59 08/01/20 08:00 Furosemide (Lasix) 40 mg EVERY 12 HOURS IV 08/01/20 11:00 08/31/20 10:59 08/02/20 08:45 Guaifenesin/ Codeine Phosphate (Robitussin with codeine) 5 ml Q6H PRN NG For Cough 07/14/20 14:15 08/13/20 14:14 07/18/20 21:44 Lansoprazole (Prevacid) 30 mg DAILY GT 07/18/20 09:00 08/09/20 08:59 08/02/20 08:45 Meropenem 1 gm/ Sodium Chloride 55 ml @ 110 mls/hr Q8H IVPB 07/22/20 12:00 08/06/20 23:59 08/02/20 04:53 Metoclopramide HCl (Reglan) 10 mg Q6H IVP 08/01/20 18:00 08/31/20 17:59 08/02/20 06:13 Midazolam HCl 200 ml @ 0 mls/hr Q24H PRN IV SEDATION 07/29/20 14:15 08/05/20 14:14 07/30/20 00:37 Midodrine (Pro-Amatine) 10 mg Q8HR GT 06/30/20 14:00 09/12/20 13:59 08/02/20 06:10 Ondansetron HCl (Zofran) 4 mg Q6H PRN IVP Nausea & Vomiting 08/02/20 10:00 09/01/20 09:59 Polyethylene Glycol (Miralax) 17 gm BEDTIME ORAL 07/26/20 21:00 08/25/20 20:59 08/01/20 20:48 Quetiapine Fumarate (SEROqueL) 50 mg Q8HR GT 07/31/20 14:00 08/30/20 13:59 08/02/20 06:12 Vancomycin HCl 250 ml @ 166.667 mls/hr Q12H IVPB 08/01/20 05:00 08/06/20 04:59 08/02/20 06:10 Vancomycin HCl ([facility] pharmacy to dose) 1 ea DAILY PRN MISC Per rx protocol 07/31/20 11:45 08/30/20 11:44 Fili Mcelroy MD Aug 02, 2020 10:15
--- NOTE | 2020-08-02 10:22 | Surgery Progress Note ---
Surgery Progress Note Subjective Procedure Performed right tube chest tube insertion Symptoms: improved, tolerating diet, passing flatus Additional Comments tolerating tube feeds no n/v weaning vent well cxr reviewed tube okay no large ptx stable cont chest tube to water seal Objective Last 24 Hour Vital Signs Date Time Temp Pulse Resp B/P (MAP) Pulse Ox O2 Delivery O2 Flow Rate FiO2 08/02/20 09:46 45 08/02/20 09:30 116 34 148/102 (117) 92 08/02/20 09:00 109 33 146/83 (104) 08/02/20 08:30 109 36 156/78 (104) 08/02/20 08:00 97.7 107 39 151/75 (100) 100 08/02/20 08:00 100 08/02/20 08:00 50 08/02/20 07:30 106 31 113/65 (81) 100 08/02/20 07:15 111 47 50 08/02/20 07:00 108 31 146/73 (97) 100 08/02/20 06:30 107 32 129/84 (99) 97 08/02/20 06:00 105 142/65 (90) 99 08/02/20 05:30 97 36 130/81 (97) 99 08/02/20 05:17 96 29 50 08/02/20 05:00 96 42 134/79 (97) 99 08/02/20 04:30 93 45 137/91 (106) 98 08/02/20 04:00 Mechanical Ventilator Mechanical Ventilator 08/02/20 04:00 92 48 151/80 (103) 98 08/02/20 04:00 50 08/02/20 04:00 93 08/02/20 03:30 93 27 148/85 (106) 98 08/02/20 03:16 96 28 50 08/02/20 03:15 91 40 130/84 (99) 99 08/02/20 03:00 91 44 139/73 (95) 100 08/02/20 02:00 95 33 141/49 (79) 99 08/02/20 01:30 96 45 131/83 (99) 99 08/02/20 01:07 98 31 50 08/02/20 01:00 42 138/76 Mechanical Ventilator 50 08/02/20 01:00 99 34 128/74 (92) 99 08/02/20 00:30 92 46 131/83 (99) 99 08/02/20 00:00 92 08/02/20 00:00 87 34 112/85 (94) 100 08/02/20 00:00 40 117/84 Mechanical Ventilator 50 08/02/20 00:00 50 08/02/20 00:00 Mechanical Ventilator Mechanical Ventilator 08/01/20 23:00 38 104/23 Mechanical Ventilator 50 08/01/20 23:00 90 36 104/23 (50) 100 08/01/20 22:55 91 31 50 08/01/20 22:30 88 46 123/75 (91) 100 08/01/20 22:00 91 37 126/80 (95) 100 08/01/20 22:00 37 128/58 Mechanical Ventilator 50 08/01/20 21:34 97 34 50 08/01/20 21:30 96 39 125/69 (87) 100 08/01/20 21:00 94 31 117/78 (91) 100 08/01/20 21:00 38 117/72 Mechanical Ventilator 50 08/01/20 20:30 97 49 116/58 (77) 100 08/01/20 20:15 97 38 119/48 (71) 100 08/01/20 20:00 Mechanical Ventilator Mechanical Ventilator 08/01/20 20:00 30 134/43 Mechanical Ventilator 50 08/01/20 20:00 96 08/01/20 20:00 99 36 134/43 (73) 98 08/01/20 20:00 50 08/01/20 19:30 97 31 128/93 (105) 100 08/01/20 19:12 98 25 50 08/01/20 19:00 97 37 134/89 (104) 99 08/01/20 19:00 38 126/80 Mechanical Ventilator 50 08/01/20 18:30 97 29 132/82 (99) 99 08/01/20 18:00 26 132/82 Mechanical Ventilator 50 08/01/20 18:00 95 22 133/82 (99) 95 08/01/20 17:30 94 26 120/47 (71) 100 08/01/20 17:00 28 124/69 Mechanical Ventilator 50 08/01/20 17:00 95 29 124/69 (87) 100 08/01/20 16:30 97 29 111/42 (65) 96 08/01/20 16:02 95 08/01/20 16:00 24 124/54 Mechanical Ventilator 50 08/01/20 16:00 97.3 97 27 124/54 (77) 98 08/01/20 16:00 Mechanical Ventilator Mechanical Ventilator 08/01/20 16:00 50 08/01/20 15:30 92 22 109/66 (80) 100 08/01/20 15:24 92 28 50 08/01/20 15:00 95 23 111/63 (79) 100 08/01/20 15:00 26 111/63 Mechanical Ventilator 60 08/01/20 14:30 96 27 113/67 (82) 100 08/01/20 14:00 95 25 117/59 (78) 100 08/01/20 14:00 28 117/59 Mechanical Ventilator 60 08/01/20 13:30 96 24 112/69 (83) 100 08/01/20 13:00 95 20 108/67 (81) 100 08/01/20 13:00 29 108/67 Mechanical Ventilator 60 08/01/20 12:30 95 25 118/67 (84) 100 08/01/20 12:30 60 08/01/20 12:00 95 08/01/20 12:00 97.1 99 35 115/98 (104) 100 08/01/20 12:00 31 112/63 Mechanical Ventilator 60 08/01/20 12:00 60 08/01/20 12:00 Mechanical Ventilator Mechanical Ventilator 08/01/20 11:30 93 25 111/67 (82) 100 08/01/20 11:30 31 115/98 70 08/01/20 11:26 100 19 70 08/01/20 11:00 90 27 112/65 (81) 100 08/01/20 11:00 29 108/73 Mechanical Ventilator 70 08/01/20 10:45 29 111/67 Mechanical Ventilator 70 08/01/20 10:30 92 27 115/66 (82) 100 08/01/20 10:30 28 115/66 Mechanical Ventilator 70 I&O Intake and Output 08/01/20 08/02/20 19:00 07:00 Intake Total 191 ml 337 ml Output Total 1075 ml 1100 ml Balance -884 ml -763 ml Free Water 10 ml IV Total 111 ml 72 ml Tube Feeding 80 ml 255 ml Output Urine Total 1075 ml 1100 ml Chest Tube Drainage Total 0 ml 0 ml Dressing: dry Wound: clean Cardiovascular: RSR Respiratory: decreased breath sounds Abdomen: soft, non-tender, present bowel sounds, non-distended Extremities: no tenderness, no cyanosis Laboratory Tests Test 08/01/20 12:40 08/01/20 17:36 08/02/20 03:50 POC Whole Blood Glucose 125 MG/DL (74-106) H 120 MG/DL (74-106) H Sodium Level 142 MMOL/L (136-145) Potassium Level 4.8 MMOL/L (3.5-5.1) Chloride Level 99 MMOL/L (98-107) Carbon Dioxide Level 39 MMOL/L (21-32) H Anion Gap 4 mmol/L (5-15) L Blood Urea Nitrogen 11 mg/dL (7-18) Creatinine 1.1 MG/DL (0.55-1.30) # Estimat Glomerular Filtration Rate 52.8 mL/min (>60) Glucose Level 119 MG/DL (74-106) H Uric Acid 4.5 MG/DL (2.6-7.2) Calcium Level 7.8 MG/DL (8.5-10.1) L Phosphorus Level 3.1 MG/DL (2.5-4.9) Magnesium Level 1.6 MG/DL (1.8-2.4) L Total Bilirubin 0.5 MG/DL (0.2-1.0) Aspartate Amino Transf (AST/SGOT) 30 U/L (15-37) Alanine Aminotransferase (ALT/SGPT) 18 U/L (12-78) Alkaline Phosphatase 70 U/L (46-116) C-Reactive Protein, Quantitative 4.9 mg/dL (0.00-0.90) H Pro-B-Type Natriuretic Peptide 2896 pg/mL (0-125) H Total Protein 6.3 G/DL (6.4-8.2) L Albumin 2.3 G/DL (3.4-5.0) L Globulin 4.0 g/dL Albumin/Globulin Ratio 0.6 (1.0-2.7) L Vancomycin Level Trough 17.2 ug/mL (5.0-12.0) H Plan Problems: (1) Respiratory distress (2) Respiratory failure Assessment & Plan: 50-year-old female Covid positive respiratory insufficiency intubated on ventilatory support declining. Leukocytosis increase oxygen requirement. Vent settings per pulmonology reviewed identified and agree. Unfortunately further surgical invention at this time is not appropriate as patient is not a candidate and her current condition. Prognosis overall guarded. Tracheostomy can be considered in the future if recovering or shows improvement and requires unable to be weaned from ventilator support. Currently okay for nutritional optimization with NG tube. Will need significant monitoring for decubitus formation given patient's size and condition. Okay for air mattress tolerated. Turn every 2 hours as tolerated. Patient is otherwise critically ill and blood pressure labile. Will need to monitor closely.Bilateral infiltrates are again demonstrated. Stable tube and line positions. will need trach will need to wean vent first no cuff leak trach okay Improving weaning well DC planning placement much improved peg placement trach changed acls now resuscitated (3) Hypoxia (4) Pneumonia due to COVID-19 virus Assessment & Plan: ++ as per pulm and ID (5) Diabetes mellitus out of control Assessment & Plan: DAILY ESTIMATED NEEDS: Needs based on Critical care, obesity 11-14kcal/kg actual body wt (140kg) kcals/kg 5331-3667 total kcals 1.5-2.0g prot/kg IBW (64.5kg) g protein/kg 96-129 g total protein 25-30ml/kg abw (83kg) mL/kg 4827-9536 total fluid mLs NUTRITION DIAGNOSIS: Swallowing difficulty R/T respiratory failure as evidenced by pt orally intubated and sedated, on OGT feeds. CURRENT TF: Vital 1.2 goal of 60ml/hr ENTERAL NUTRITION RECOMMENDATIONS: Vital AF 1.2 @ 60ml/hr x 24 hrs to provide 1440ml, 1728kcal, 108g prot, 1168ml free water * Maintain current critical care and carb controlled TF formula of Vital AF * TF @ goal meeds 100% est kcal/prot needs * HOB over 30 degrees/ water flush per MD TF may be lowered to 55ml/hr for improved BG control while maintaining Kcal and pro needs. ADDITIONAL RECOMMENDATIONS: * Calibrated bedscale wt * Monitor Propofol rate, need for TF adjustment-> now off * Monitor BGs closely : now improved, on novolog q 6rs + NISS * Monitor lytes- K elevated, monitor need for TF change * Rec bowel regimen- now w/ rectal tube . (6) Pneumothorax on right Assessment & Plan: right tension pneumothorax trach changed for cuff leak and decreased volumes pressures high after and ptx tension acls resuscitated right chest tube placed ptx resolved cont chest tube to suction am cxr wean vent Right chest tube, tracheostomy, nasogastric tube remain. Previously demonstrated subcutaneous emphysema has nearly completely cleared, with only questionably small residual in the left supraclavicular fossa. Extensive bilateral infiltrates persist. There is no pneumothorax currently. The heart is borderline enlarged. Pneumoperitoneum persists, may be slightly decreased Impression: Markedly improved subcutaneous emphysema Unchanged bilateral infiltrates Persistent but perhaps slightly decreased pneumoperitoneum chest tube removed 07/29 f/u cxr new chest tube 07/30 tolerating tube feeds no n/v weaning vent well cxr reviewed tube okay no large ptx stable cont chest tube to water seal (7) DEVENDRA (acute kidney injury) (8) Morbid obesity Az Devine Aug 02, 2020 10:22
--- NOTE | 2020-08-02 10:30 | NUR ---
RD ASSESSMENT & RECOMMENDATIONS SEE CARE ACTIVITY FOR COMPLETE ASSESSMENT DAILY ESTIMATED NEEDS: Needs based on Critical care, obesity 11-14kcal/kg actual body wt (140kg) kcals/kg 9777-7952 total kcals 1.5-2.0g prot/kg IBW (64.5kg) g protein/kg 96-129 g total protein 25-30ml/kg abw (83kg) mL/kg 1553-6464 total fluid mLs NUTRITION DIAGNOSIS: Swallowing difficulty R/T respiratory failure as evidenced by pt now s/p trach placement (07/04), NGT to LIS now dc'ed, s/p PEG placement. CURRENT TF:Glucerna 1.2 goal of 55ml/hr ENTERAL NUTRITION RECOMMENDATIONS: Glucerna 1.2 @ 55ml/hr x 24 hrs + Prosource 1pkt BID to provide 1320ml, 1584kcal, 79g+22g prot, 1063ml free water * As medically appropriate, initiate Glucerna 1.2 @ 25ml/hr x 6hrs * Advance 10ml q 4-6 hrs as tolerated to goal rate. * Add Prosource 1pkt BID (additional 22g prot) to meet protein needs * HOB over 30 degrees/ water flush per MD * Feed @goal w/ hemodynamic stability ADDITIONAL RECOMMENDATIONS: * Calibrated bedscale wt * Monitor Propofol rate, need for TF adjustment-> now off * Monitor BGs closely: now improved, on NISS only * NPO/feeding status- TF restarted, titrating to goal Reglan added * When tolerating TF at goal add prosource BID to better meet est pro needs .
--- NOTE | 2020-08-02 10:30 | NUR ---
NURSE NOTES: Pt seen by Dr Mcelroy. Order received to remove current PICC and replace with new one.
[2020-08-02] MEDS ORDERED: Lidocaine 1% Plain 30 ml INJ PRN (10:45)
[2020-08-02] MEDS ORDERED: HYDROmorphone 1mg/ml Carpuject IVP PRN (10:45)
[2020-08-02] MEDS ORDERED: Heparin1,000 units/500ml Premix(Conc:2 units/ml) IV PRN (10:45)
--- NOTE | 2020-08-02 10:45 | NUR ---
NURSE NOTES: Pt seen by Dr Nava and Radha Bonds. Elevated HR noted - continuing to wean pt off sedation (Dr Nava states he will place orders for pain management).
--- NOTE | 2020-08-02 11:00 | NUR ---
NURSE NOTES: Pt seen by Dr Tyler.
--- NOTE | 2020-08-02 11:01 | Pulmonology Progress Note ---
Subjective ROS Limited/Unobtainable: Yes Interval Events: Chest tube removed (07/29), reinserted (07/30) Constitutional: Reports: fever, other - resolved HEENT: Repors: no symptoms Respiratory: Reports: no symptoms Cardiovascular: Reports: no symptoms Gastrointestinal/Abdominal: Reports: vomiting Genitourinary: Reports: no symptoms Allergies: Coded Allergies: No Known Allergies (Unverified , 05/28/20) All Systems: reviewed and negative except above Objective Last 24 Hour Vital Signs Date Time Temp Pulse Resp B/P (MAP) Pulse Ox O2 Delivery O2 Flow Rate FiO2 08/02/20 10:00 122 31 150/88 (108) 96 08/02/20 09:46 45 08/02/20 09:30 116 34 148/102 (117) 92 08/02/20 09:00 109 33 146/83 (104) 08/02/20 08:30 109 36 156/78 (104) 08/02/20 08:00 97.7 107 39 151/75 (100) 100 08/02/20 08:00 100 08/02/20 08:00 50 08/02/20 07:30 106 31 113/65 (81) 100 08/02/20 07:15 111 47 50 08/02/20 07:00 108 31 146/73 (97) 100 08/02/20 06:30 107 32 129/84 (99) 97 08/02/20 06:00 105 142/65 (90) 99 08/02/20 05:30 97 36 130/81 (97) 99 08/02/20 05:17 96 29 50 08/02/20 05:00 96 42 134/79 (97) 99 08/02/20 04:30 93 45 137/91 (106) 98 08/02/20 04:00 Mechanical Ventilator Mechanical Ventilator 08/02/20 04:00 92 48 151/80 (103) 98 08/02/20 04:00 50 08/02/20 04:00 93 08/02/20 03:30 93 27 148/85 (106) 98 08/02/20 03:16 96 28 50 08/02/20 03:15 91 40 130/84 (99) 99 08/02/20 03:00 91 44 139/73 (95) 100 08/02/20 02:00 95 33 141/49 (79) 99 08/02/20 01:30 96 45 131/83 (99) 99 08/02/20 01:07 98 31 50 08/02/20 01:00 42 138/76 Mechanical Ventilator 50 08/02/20 01:00 99 34 128/74 (92) 99 08/02/20 00:30 92 46 131/83 (99) 99 08/02/20 00:00 92 08/02/20 00:00 87 34 112/85 (94) 100 08/02/20 00:00 40 117/84 Mechanical Ventilator 50 08/02/20 00:00 50 08/02/20 00:00 Mechanical Ventilator Mechanical Ventilator 08/01/20 23:00 38 104/23 Mechanical Ventilator 50 08/01/20 23:00 90 36 104/23 (50) 100 08/01/20 22:55 91 31 50 08/01/20 22:30 88 46 123/75 (91) 100 08/01/20 22:00 91 37 126/80 (95) 100 08/01/20 22:00 37 128/58 Mechanical Ventilator 50 08/01/20 21:34 97 34 50 08/01/20 21:30 96 39 125/69 (87) 100 08/01/20 21:00 94 31 117/78 (91) 100 08/01/20 21:00 38 117/72 Mechanical Ventilator 50 08/01/20 20:30 97 49 116/58 (77) 100 08/01/20 20:15 97 38 119/48 (71) 100 08/01/20 20:00 Mechanical Ventilator Mechanical Ventilator 08/01/20 20:00 30 134/43 Mechanical Ventilator 50 08/01/20 20:00 96 08/01/20 20:00 99 36 134/43 (73) 98 08/01/20 20:00 50 08/01/20 19:30 97 31 128/93 (105) 100 08/01/20 19:12 98 25 50 08/01/20 19:00 97 37 134/89 (104) 99 08/01/20 19:00 38 126/80 Mechanical Ventilator 50 08/01/20 18:30 97 29 132/82 (99) 99 08/01/20 18:00 26 132/82 Mechanical Ventilator 50 08/01/20 18:00 95 22 133/82 (99) 95 08/01/20 17:30 94 26 120/47 (71) 100 08/01/20 17:00 28 124/69 Mechanical Ventilator 50 08/01/20 17:00 95 29 124/69 (87) 100 08/01/20 16:30 97 29 111/42 (65) 96 08/01/20 16:02 95 08/01/20 16:00 24 124/54 Mechanical Ventilator 50 08/01/20 16:00 97.3 97 27 124/54 (77) 98 08/01/20 16:00 Mechanical Ventilator Mechanical Ventilator 08/01/20 16:00 50 08/01/20 15:30 92 22 109/66 (80) 100 08/01/20 15:24 92 28 50 08/01/20 15:00 95 23 111/63 (79) 100 08/01/20 15:00 26 111/63 Mechanical Ventilator 60 08/01/20 14:30 96 27 113/67 (82) 100 08/01/20 14:00 95 25 117/59 (78) 100 08/01/20 14:00 28 117/59 Mechanical Ventilator 60 08/01/20 13:30 96 24 112/69 (83) 100 08/01/20 13:00 95 20 108/67 (81) 100 08/01/20 13:00 29 108/67 Mechanical Ventilator 60 08/01/20 12:30 95 25 118/67 (84) 100 08/01/20 12:30 60 08/01/20 12:00 95 08/01/20 12:00 97.1 99 35 115/98 (104) 100 08/01/20 12:00 31 112/63 Mechanical Ventilator 60 08/01/20 12:00 60 08/01/20 12:00 Mechanical Ventilator Mechanical Ventilator 08/01/20 11:30 93 25 111/67 (82) 100 08/01/20 11:30 31 115/98 70 08/01/20 11:26 100 19 70 08/01/20 11:00 90 27 112/65 (81) 100 08/01/20 11:00 29 108/73 Mechanical Ventilator 70 Intake and Output 08/01/20 08/02/20 19:00 07:00 Intake Total 191 ml 337 ml Output Total 1075 ml 1100 ml Balance -884 ml -763 ml Free Water 10 ml IV Total 111 ml 72 ml Tube Feeding 80 ml 255 ml Output Urine Total 1075 ml 1100 ml Chest Tube Drainage Total 0 ml 0 ml General Appearance: no acute distress HEENT: normocephalic, status post trach Respiratory: chest wall non-tender Cardiovascular: normal peripheral pulses Abdomen: normal bowel sounds, other - s/p PEG Microbiology Date/Time Source Procedure Growth Status 08/01/20 04:45 Blood Blood Culture - Preliminary Resulted 07/31/20 14:15 Urine,Clean Catch Urine Culture - Preliminary NO GROWTH AFTER 24 HOURS Resulted 07/31/20 14:15 Urine,Clean Catch Urine Culture - Preliminary NO GROWTH AFTER 24 HOURS Resulted 07/31/20 14:15 Sputum Gram Stain - Final Resulted 07/31/20 14:15 Sputum Culture - Preliminary Gram Negative Bacillus 1 Resulted Laboratory Tests 08/01/20 12:40: POC Whole Blood Glucose 125H 08/01/20 17:36: POC Whole Blood Glucose 120H 08/02/20 03:50: Sodium Level 142, Potassium Level 4.8, Chloride Level 99, Carbon Dioxide Level 39H, Anion Gap 4L, Blood Urea Nitrogen 11, Creatinine 1.1#, Estimat Glomerular Filtration Rate 52.8, Glucose Level 119H, Uric Acid 4.5, Calcium Level 7.8L, Phosphorus Level 3.1, Magnesium Level 1.6L, Total Bilirubin 0.5, Aspartate Amino Transf (AST/SGOT) 30, Alanine Aminotransferase (ALT/SGPT) 18, Alkaline Phosphatase 70, C-Reactive Protein, Quantitative 4.9H, Pro-B-Type Natriuretic Peptide 2896H, Total Protein 6.3L, Albumin 2.3L, Globulin 4.0, Albumin/Globulin Ratio 0.6L, Vancomycin Level Trough 17.2H Current Medications Medications (Trade) Dose Ordered Sig/Zelda Route PRN Reason Start Time Stop Time Status Last Admin Dose Admin Acetaminophen (Tylenol) 650 mg Q4H PRN NG Temp >100.5 07/27/20 03:45 08/26/20 03:44 07/29/20 20:24 Acetaminophen/ Hydrocodone Bitart ([place] 5/325) 1 tab Q4H PRN ORAL Moderate Pain (Pain Scale 4-6) 08/02/20 10:45 08/09/20 10:44 UNV Calcitonin Raysal (Miacalcin) 1 sprays DAILY NASAL 07/22/20 14:00 10/20/20 13:59 08/02/20 08:48 Chlorhexidine Gluconate (Inna-Hex 2%) 1 applic DAILY@1999 TOPIC 07/20/20 20:00 10/18/20 19:59 08/01/20 20:47 Chlorhexidine Gluconate (Inna-Hex 2%) 1 applic DAILY@1999 TOPIC 08/02/20 20:00 10/31/20 19:59 UNV Dextrose (Dextrose 50%) 25 ml Q30M PRN IV Hypoglycemia 06/05/20 10:45 09/03/20 10:44 Dextrose (Dextrose 50%) 50 ml Q30M PRN IV Hypoglycemia 06/05/20 10:45 09/03/20 10:44 Docusate Sodium (Colace) 100 mg EVERY 12 HOURS GT 08/01/20 21:00 08/25/20 17:59 08/02/20 08:45 Enoxaparin Sodium (Lovenox) 110 mg EVERY 12 HOURS SUBQ 07/17/20 21:00 10/15/20 20:59 08/02/20 08:46 Fentanyl Citrate 250 ml @ 0 mls/hr Q24H PRN IV . 07/31/20 12:00 08/02/20 11:59 08/01/20 08:00 Furosemide (Lasix) 40 mg EVERY 12 HOURS IV 08/01/20 11:00 08/31/20 10:59 08/02/20 08:45 Guaifenesin/ Codeine Phosphate (Robitussin with codeine) 5 ml Q6H PRN NG For Cough 07/14/20 14:15 08/13/20 14:14 07/18/20 21:44 Heparin Sodium/ Sodium Chloride (Heparin 1000 units/500ml Premix) 1,000 unit ONCE ONCE IV 08/02/20 10:45 08/02/20 10:46 UNV Hydromorphone HCl (Dilaudid) 1 mg Q4H PRN IVP For Pain 08/02/20 10:45 08/09/20 10:44 UNV Lansoprazole (Prevacid) 30 mg DAILY GT 07/18/20 09:00 08/09/20 08:59 08/02/20 08:45 Lidocaine HCl (Xylocaine 1% 30ml) 30 ml ONCE ONCE INJ 08/02/20 10:45 08/02/20 10:46 UNV Magnesium Sulfate 100 ml @ 100 mls/hr Q1H IVPB 08/02/20 11:00 08/02/20 12:59 Meropenem 1 gm/ Sodium Chloride 55 ml @ 110 mls/hr Q8H IVPB 07/22/20 12:00 08/06/20 23:59 08/02/20 04:53 Metoclopramide HCl (Reglan) 10 mg Q6H IVP 08/01/20 18:00 08/31/20 17:59 08/02/20 06:13 Midodrine (Pro-Amatine) 10 mg Q8HR GT 06/30/20 14:00 09/12/20 13:59 08/02/20 06:10 Ondansetron HCl (Zofran) 4 mg Q6H PRN IVP Nausea & Vomiting 08/02/20 10:00 09/01/20 09:59 Polyethylene Glycol (Miralax) 17 gm BEDTIME ORAL 07/26/20 21:00 08/25/20 20:59 08/01/20 20:48 Quetiapine Fumarate (SEROqueL) 75 mg Q8HR GT 08/02/20 14:00 08/30/20 13:59 UNV Vancomycin HCl 250 ml @ 166.667 mls/hr Q12H IVPB 08/01/20 05:00 08/06/20 04:59 08/02/20 06:10 Vancomycin HCl ([facility] pharmacy to dose) 1 ea DAILY PRN MISC Per rx protocol 07/31/20 11:45 08/30/20 11:44 Assessment/Plan Assessment/Plan 1. COVID-19 pneumonia -Intubated 05/28/20 -s/p solumedrol, Rocephin -Continue PEEP 6 ->7 ->5 - Peak airway pressures better - FiO2 100% -> 90 ->80->60 ->40 ->80 ->100 ->70 ->60 -> 50 ->45 ->40 ->50 ->40-> 80 -> 70%; PEEP 7 ->5 - s/p PEG - Sputum Cx pseudo -> on meropenem per ID 2. Hyponatremia -Per primary MD 3. Elevated inflammatory markers - has high D dimer; On Lovenox -> Lovenox held given anemia 4. DVT of the right calf - once stable, consider IVC filter per heme vs oral DOAC - was on Lovenox but held given anemia 5. Decreased PEEP S/p trach Reported cuff leak per RN/RT Changed 07/22/20 however still has cuff leak 6. Leukocytosis; now WBC wnl - ID following - BCx, UCx, and Sp Cx 7. Pulmonary edema - Will start Lasix 40 mg IV Q12h On low dose Levophed; will attempt to wean off Will wean off IV sedation; started Seroquel, now TID, added [place] and Dilaudid prn s/p PEG Required R CT due to PTX 07/22/20 - CT removed (07/29) ->however, f/u CXR shows PTX with tracheal deviation. CT reinserted (07/30) Hold weaning for now The care of this patient was discussed with my supervising physician Time spent for this encounter was approximately 31 minutes Vamshi Garcia Aug 02, 2020 11:01
--- NOTE | 2020-08-02 11:21 | NUR ---
RESPIRATORY NOTE: Fio2 decreased to 40%. PT tolerating well. Winsome aware of FiO2 titration.
--- NOTE | 2020-08-02 12:00 | NUR ---
NURSE NOTES: Pt repositioned. PO care provided. Afebrile. No distress noted at this time.
--- NOTE | 2020-08-02 13:00 | NUR ---
NURSE NOTES: peripheral IVs obtained. Spoke with Dr. Lilibeth KNAPP to dc PICC and cancel reinsertion at this time.
--- NOTE | 2020-08-02 13:36 | NUR ---
RESPIRATORY NOTE: FiO2 increased to 45% due to desaturation. Winsome aware of FiO2 titration.
--- NOTE | 2020-08-02 13:46 | Nephrology Progress Note ---
Assessment/Plan Problem List: (1) DEVENDRA (acute kidney injury) (2) Morbid obesity (3) Diabetes mellitus out of control (4) Pneumonia due to COVID-19 virus (5) Respiratory failure Assessment Acute renal failure Obstructive uropathy, clogged [place] Respiratory failure COVID-19 pneumonia Morbid obesity Plan August 02: Continues to have chest tube. Full code. Trach and vent. PEG. Renal parameters stable. August 01: Status quo. Leukocytosis resolved. Renal parameters stable. Continues to be vented through trach. Has PEG. Continue per consultants. Patient is full code. July 31: Chest tube was right reinserted on the right side. Patient remains trached on vent. Leukocytosis worsened . Renal parameters unchanged. Continue per current treatment plan. July 30: Status quo. Labs reviewed. Medication list reviewed. Stable from renal standpoint of view. Patient is full code, trached and vent, also has PEG. July 29: Status quo. Discussed with RN. Labs and medication list reviewed. Stable from renal standpoint of view. July 28: Full code. Labs reviewed. Abnormal electrolytes addressed. Medication list reviewed. Patient has trach and PEG and on ventilator. Continue per consultants. July 27: Full code. In ICU. Trach to vent. Labs reviewed. Renal parameters and electrolytes stable. July 26: Remains in ICU. Remains full code. Trach to vent. Labs reviewed. Abnormal electrolytes addressed. Continue per consultants. July 25: Seen in ICU. Received PEG yesterday. Has trach connected to vent. Full code. Labs reviewed. Albumin bolus given. IV started on table feeding via GT tube initiated. July 24: Patient seen in ICU. Status quo. Has trach. Being ventilated. Has right chest tube. Labs reviewed. Continue per consultants. Low magnesium and low phosphorus replaced. July 23: Patient seen in ICU. Discussed with RN. Yesterday the patient developed tension pneumothorax. Patient has a chest tube today. Labs reviewed. Renal parameters stable. Medication list reviewed. July 22: Status quo. Labs reviewed. Serum calcium elevated. Vitamin D discontinued. Pamidronate 60 mg IV given. Continue to monitor calcium and phosphorus. Patient due for PEG today. July 21: Status quo. Awake responsive. Labs reviewed. Medication list reviewed. Stable from renal standpoint of view. Due for PEG tomorrow. Continue her current management. July 20: Status quo. PEG procedure deferred to July 22. Patient remains full code. Abnormal electrolytes addressed. FiO2 50% unchanged. Continue per consultants. July 19: Status quo. Due for PEG insertion today. Remains full code. Trach and vent. Low magnesium addressed. Continue per consultants. FiO2 50%. July 18: Status quo. Labs reviewed. Low potassium addressed. Continue per consultants. Remains full code. July 17: Remains full code. Trach to vent. FiO2 40%. Labs reviewed. Low potassium addressed. Continue per consultants. July 16: Status quo. FiO2 45%. Discussed with RN. Continue to taper her mind altering medications and sedatives. Stable from renal standpoint of view. Abnormal electrolytes addressed. July 15: Full code. FiO2 50%. Intubated on ventilator. No labs drawn today. Continue per consultants. July 14: Status quo. FiO2 50%. Labs reviewed. Renal parameters stable. Continue per current treatment plan and consultants. Medication list reviewed. July 13: FiO2 60% unchanged. Labs reviewed. Renal parameters stable. Medication list reviewed. Continue per consultants. July 12: Full code. Labs reviewed. Normal electrolytes addressed. Continue per pulmonary. Medication list reviewed. July 11: Remains full code. On ventilator. FiO2 down to 65%. Renal parameters stable. Low magnesium addressed. Continue her current management. July 10: Full code. On ventilator. FiO2 70%. Hemoglobin mid sevens. Renal parameters stable. Continue per consultants. July 09: Labs reviewed. Renal parameters stable. FiO2 80% unchanged. Continue per pulmonary. July 08: Labs reviewed. Renal parameters and electrolytes stable. ABG suggestive of high PCO2. At this time patient is on FiO2 of 80%. Continue per pulmonary. Continue to monitor renal parameters. July 07: No CHEM panel drawn today. More potassium given. Continue to monitor renal parameters. Continue per consultants. Discussed with RAKEL Veras. July 06: Low potassium addressed. Albumin bolus for low BP given. Patient remains full code. Continue to monitor electrolytes and renal parameters. Continue per consultants. Hemoglobin low today, transfusion per world geography teacher. July 05: Trach to vent. FiO2 80%. Renal parameters stable. PCO2 remains high at 44. Continue to monitor renal parameters. July 04: Patient now trach. Full code. Labs reviewed. Renal parameters stable. Low magnesium addressed. July 03: Intubated. Full code. Labs reviewed. Abnormal electrolytes addressed. Continue per consultants. Overall status unchanged. July 02: Remains intubated. Remains full code. Remains on FiO2 of 70%. Labs reviewed. Abnormal electrolytes addressed. Continue per pulmonary. July 01: Remains on 70% FiO2. Full code. Intubated on ventilator. Retaining CO2. Discussed with RN. Will do ABG today. Albumin bolus given. 1 dose of Diamox given. June 30: Status quo. Labs reviewed. Abnormal electrolytes addressed. Remains full code. Remains on ventilator. Magnesium sulfate 4 gram IVPB given. June 29: Full code. Intubated on ventilator. Labs reviewed. Stable from renal standpoint of view. Continue per consultants. June 28: Remains full code. Remains intubated on ventilator. Labs reviewed. Vitamin D supplement ordered. Continue to monitor renal parameters. Continue per consultants. June 27: Remains full code. Intubated on ventilator. Labs reviewed. Abnormal electrolyte addressed. Continue to monitor renal parameters and electrolytes. Continue per consultants. June 26: Labs reviewed. Remains full code. Remains intubated. Back on NGT feeding. Continue to monitor renal parameters. June 25: Labs reviewed. Renal parameters stable. Remains full code. Due to positional status patient could not be fed via NG tube. Starting TPN? Is being entertained. Continue per consultants. June 24: Labs reviewed. Renal parameters stable. Remains full code. Remains intubated on ventilator. Continue per consultants. June 23: Labs reviewed. Renal parameters stable. Discussed with RN. Abnormal electrolyte addressed. Remains full code. Remains on ventilator. Continue per consultants. June 22: Labs reviewed. Low potassium addressed. Discussed with RAKEL Moran. Patient full code. Remains on ventilator. Continue to monitor renal parameters. June 21. Labs reviewed. Abnormal electrolyte addressed. Full code. Remains on ventilator. Medication list reviewed. Continue per pulmonary management. DC IV fluid, resume Lasix daily, check chest x-ray. June 20: Labs reviewed. Abnormal electrolytes. Patient remains full code. Continue per consultants. Noted and addressed June 19: Labs reviewed. Abnormal electrolytes noted and addressed. Remains intubated on ventilator. Remains full code. June 18: Labs reviewed. Remains intubated on ventilator. Full code. Abnormal electrolyte addressed. Continue as is. June 17: Labs reviewed. Abnormal electrolytes addressed. Patient remains full code and intubated on ventilator. Continue per consultants. Renal parameters are within normal limits. June 16: Labs reviewed. Potassium chloride replaced. Remains full code. Remains intubated on ventilator. Continue per consultants. Continue to monitor renal parameters. June 15: Labs reviewed. Serum creatinine 1. Stable from renal standpoint to view. Continue per consultants. June 14: Labs reviewed. Full code. Serum creatinine of 3.5 down to 1.4. Low potassium addressed. Continue per current treatment plan. Continue to monitor renal parameters. Midodrine started. Albumin bolus given. Previously: DC Lasix drip Increase Protonix dose Monitor renal parameters, electrolytes Per orders Subjective ROS Limited/Unobtainable: Yes Objective Objective Last 24 Hour Vital Signs Date Time Temp Pulse Resp B/P (MAP) Pulse Ox O2 Delivery O2 Flow Rate FiO2 08/02/20 13:35 45 08/02/20 13:00 127 33 162/62 (95) 08/02/20 12:00 98.5 124 28 117/75 (89) 96 08/02/20 12:00 105 08/02/20 12:00 Mechanical Ventilator 08/02/20 12:00 40 08/02/20 12:00 28 117/75 Mechanical Ventilator 40 08/02/20 11:30 123 39 154/98 (116) 96 08/02/20 11:30 32 154/98 Mechanical Ventilator 45 08/02/20 11:00 123 35 141/99 (113) 98 08/02/20 11:00 35 141/99 Mechanical Ventilator 45 08/02/20 10:30 123 32 196/93 (127) 96 08/02/20 10:00 122 31 150/88 (108) 96 08/02/20 10:00 31 150/88 Mechanical Ventilator 45 08/02/20 09:46 45 08/02/20 09:30 116 34 148/102 (117) 92 08/02/20 09:00 109 33 146/83 (104) 98 08/02/20 09:00 33 146/83 Mechanical Ventilator 50 08/02/20 08:30 109 36 156/78 (104) 96 08/02/20 08:00 Mechanical Ventilator 08/02/20 08:00 34 151/75 Mechanical Ventilator 50 08/02/20 08:00 97.7 107 39 151/75 (100) 100 08/02/20 08:00 100 08/02/20 08:00 50 08/02/20 07:30 106 31 113/65 (81) 100 08/02/20 07:15 111 47 50 08/02/20 07:00 108 31 146/73 (97) 100 08/02/20 07:00 31 146/73 Mechanical Ventilator 50 08/02/20 06:30 107 32 129/84 (99) 97 08/02/20 06:00 105 142/65 (90) 99 08/02/20 05:30 97 36 130/81 (97) 99 08/02/20 05:17 96 29 50 08/02/20 05:00 96 42 134/79 (97) 99 08/02/20 04:30 93 45 137/91 (106) 98 08/02/20 04:00 Mechanical Ventilator Mechanical Ventilator 08/02/20 04:00 92 48 151/80 (103) 98 08/02/20 04:00 50 08/02/20 04:00 93 08/02/20 03:30 93 27 148/85 (106) 98 08/02/20 03:16 96 28 50 08/02/20 03:15 91 40 130/84 (99) 99 08/02/20 03:00 91 44 139/73 (95) 100 08/02/20 02:00 95 33 141/49 (79) 99 08/02/20 01:30 96 45 131/83 (99) 99 08/02/20 01:07 98 31 50 08/02/20 01:00 42 138/76 Mechanical Ventilator 50 08/02/20 01:00 99 34 128/74 (92) 99 08/02/20 00:30 92 46 131/83 (99) 99 08/02/20 00:00 92 08/02/20 00:00 87 34 112/85 (94) 100 08/02/20 00:00 40 117/84 Mechanical Ventilator 50 08/02/20 00:00 50 08/02/20 00:00 Mechanical Ventilator Mechanical Ventilator 08/01/20 23:00 38 104/23 Mechanical Ventilator 50 08/01/20 23:00 90 36 104/23 (50) 100 08/01/20 22:55 91 31 50 08/01/20 22:30 88 46 123/75 (91) 100 08/01/20 22:00 91 37 126/80 (95) 100 08/01/20 22:00 37 128/58 Mechanical Ventilator 50 08/01/20 21:34 97 34 50 08/01/20 21:30 96 39 125/69 (87) 100 08/01/20 21:00 94 31 117/78 (91) 100 08/01/20 21:00 38 117/72 Mechanical Ventilator 50 08/01/20 20:30 97 49 116/58 (77) 100 08/01/20 20:15 97 38 119/48 (71) 100 08/01/20 20:00 Mechanical Ventilator Mechanical Ventilator 08/01/20 20:00 30 134/43 Mechanical Ventilator 50 08/01/20 20:00 96 08/01/20 20:00 99 36 134/43 (73) 98 08/01/20 20:00 50 08/01/20 19:30 97 31 128/93 (105) 100 08/01/20 19:12 98 25 50 08/01/20 19:00 97 37 134/89 (104) 99 08/01/20 19:00 38 126/80 Mechanical Ventilator 50 08/01/20 18:30 97 29 132/82 (99) 99 08/01/20 18:00 26 132/82 Mechanical Ventilator 50 08/01/20 18:00 95 22 133/82 (99) 95 08/01/20 17:30 94 26 120/47 (71) 100 08/01/20 17:00 28 124/69 Mechanical Ventilator 50 08/01/20 17:00 95 29 124/69 (87) 100 08/01/20 16:30 97 29 111/42 (65) 96 08/01/20 16:02 95 08/01/20 16:00 24 124/54 Mechanical Ventilator 50 08/01/20 16:00 97.3 97 27 124/54 (77) 98 08/01/20 16:00 Mechanical Ventilator Mechanical Ventilator 08/01/20 16:00 50 08/01/20 15:30 92 22 109/66 (80) 100 08/01/20 15:24 92 28 50 08/01/20 15:00 95 23 111/63 (79) 100 08/01/20 15:00 26 111/63 Mechanical Ventilator 60 08/01/20 14:30 96 27 113/67 (82) 100 08/01/20 14:00 95 25 117/59 (78) 100 08/01/20 14:00 28 117/59 Mechanical Ventilator 60 Intake and Output 08/01/20 08/02/20 19:00 07:00 Intake Total 191 ml 342 ml Output Total 1075 ml 1050 ml Balance -884 ml -708 ml Free Water 10 ml IV Total 111 ml 77 ml Tube Feeding 80 ml 255 ml Output Urine Total 1075 ml 1050 ml Chest Tube Drainage Total 0 ml 0 ml Current Medications Medications (Trade) Dose Ordered Sig/Zelda Route PRN Reason Start Time Stop Time Status Last Admin Dose Admin Acetaminophen (Tylenol) 650 mg Q4H PRN NG Temp >100.5 07/27/20 03:45 08/26/20 03:44 07/29/20 20:24 Acetaminophen/ Hydrocodone Bitart ([place] 5/325) 1 tab Q4H PRN ORAL Moderate Pain (Pain Scale 4-6) 08/02/20 10:45 08/09/20 10:44 Calcitonin [place] (Miacalcin) 1 sprays DAILY NASAL 07/22/20 14:00 10/20/20 13:59 08/02/20 08:48 Dextrose (Dextrose 50%) 25 ml Q30M PRN IV Hypoglycemia 06/05/20 10:45 09/03/20 10:44 Dextrose (Dextrose 50%) 50 ml Q30M PRN IV Hypoglycemia 06/05/20 10:45 09/03/20 10:44 Docusate Sodium (Colace) 100 mg EVERY 12 HOURS GT 08/01/20 21:00 08/25/20 17:59 08/02/20 08:45 Enoxaparin Sodium (Lovenox) 110 mg EVERY 12 HOURS SUBQ 07/17/20 21:00 10/15/20 20:59 08/02/20 08:46 Furosemide (Lasix) 40 mg EVERY 12 HOURS IV 08/01/20 11:00 08/31/20 10:59 08/02/20 08:45 Guaifenesin/ Codeine Phosphate (Robitussin with codeine) 5 ml Q6H PRN NG For Cough 07/14/20 14:15 08/13/20 14:14 07/18/20 21:44 Heparin Sodium/ Sodium Chloride (Heparin 1000 units/500ml Premix) 1,000 unit ONCE PRN IV PICC LINE PLACEMENT 08/02/20 10:45 08/04/20 10:44 Hydromorphone HCl (Dilaudid) 1 mg Q4H PRN IVP For Pain 08/02/20 10:45 08/09/20 10:44 08/02/20 11:43 Lansoprazole (Prevacid) 30 mg DAILY GT 07/18/20 09:00 08/09/20 08:59 08/02/20 08:45 Lidocaine HCl (Xylocaine 1% 30ml) 30 ml ONCE PRN INJ PICC LINE PLACEMENT 08/02/20 10:45 08/04/20 10:44 Meropenem 1 gm/ Sodium Chloride 55 ml @ 110 mls/hr Q8H IVPB 07/22/20 12:00 08/06/20 23:59 08/02/20 11:39 Metoclopramide HCl (Reglan) 10 mg Q6H IVP 08/01/20 18:00 08/31/20 17:59 08/02/20 11:39 Midodrine (Pro-Amatine) 10 mg Q8HR GT 06/30/20 14:00 09/12/20 13:59 08/02/20 06:10 Ondansetron HCl (Zofran) 4 mg Q6H PRN IVP Nausea & Vomiting 08/02/20 10:00 09/01/20 09:59 Polyethylene Glycol (Miralax) 17 gm BEDTIME ORAL 07/26/20 21:00 08/25/20 20:59 08/01/20 20:48 Quetiapine Fumarate (SEROqueL) 75 mg Q8HR GT 08/02/20 14:00 08/30/20 13:59 08/02/20 13:43 Vancomycin HCl 250 ml @ 166.667 mls/hr Q12H IVPB 08/01/20 05:00 08/06/20 04:59 08/02/20 06:10 Vancomycin HCl (Vanco pharmacy to dose) 1 ea DAILY PRN MISC Per rx protocol 07/31/20 11:45 08/30/20 11:44 Laboratory Tests 08/01/20 17:36: POC Whole Blood Glucose 120H 08/02/20 03:50: Sodium Level 142, Potassium Level 4.8, Chloride Level 99, Carbon Dioxide Level 39H, Anion Gap 4L, Blood Urea Nitrogen 11, Creatinine 1.1#, Estimat Glomerular Filtration Rate 52.8, Glucose Level 119H, Uric Acid 4.5, Calcium Level 7.8L, Phosphorus Level 3.1, Magnesium Level 1.6L, Total Bilirubin 0.5, Aspartate Amino Transf (AST/SGOT) 30, Alanine Aminotransferase (ALT/SGPT) 18, Alkaline Phosphatase 70, C-Reactive Protein, Quantitative 4.9H, Pro-B-Type Natriuretic Peptide 2896H, Total Protein 6.3L, Albumin 2.3L, Globulin 4.0, Albumin/Globulin Ratio 0.6L, Vancomycin Level Trough 17.2H Height (Feet): 5 Height (Inches): 5.00 Weight (Pounds): 223 General Appearance: no apparent distress EENT: other - Trach to vent Cardiovascular: tachycardia Respiratory/Chest: decreased breath sounds Abdomen: distended Rigo Tyler MD Aug 02, 2020 13:46
--- NOTE | 2020-08-02 13:51 | Diagnostic Imaging Report ---
Procedure: XRAY Chest 1v Reason for study: Reason For Exam: SOB Comparison films: 07/31/2020. FINDINGS: Tracheostomy as well as small bore right basilar chest tube remain in place. Extensive bilateral alveolar densities are unchanged. Cardiomegaly unchanged. CP angles are sharp. The bony thorax appear unremarkable. IMPRESSION: NO SIGNIFICANT CHANGE COMPARED TO PREVIOUS EXAM.
--- NOTE | 2020-08-02 14:00 | NUR ---
NURSE NOTES: FLACC score of 10 noted. Pt appears anxious and in pain. Dr Nava contacted angeles Johns, supercharger mechanic and orders received to increase dilaudid dose and add ativan. Will administer and reassess pain promptly. Pt repositioned.
[2020-08-02] MEDS: LORazepam Inj 2mg/ml 1ml IV PRN ×2 (14:03→22:19)
[2020-08-02] MEDS: HYDROmorphone 1mg/ml Carpuject IVP PRN (14:04)
--- NOTE | 2020-08-02 14:22 | NUR ---
RESPIRATORY NOTE: FiO2 increased to 50% due to desaturation. Winsome ELLINGTON. aware of FiO2 titration.
--- NOTE | 2020-08-02 16:00 | NUR ---
NURSE NOTES: Pt repositioned and cleaned. PO care provided. Afebrile. No distress noted.
--- NOTE | 2020-08-02 16:30 | NUR ---
NURSE NOTES: Pt seen by Dr Burger - made aware pt was tachycardic today with HR as high as 140s. After Dilaudid and ativan administration, HR now 100-110 bpm.
--- NOTE | 2020-08-02 16:33 | NUR ---
NURSE NOTES: Pt seen by Dr Strong.
--- NOTE | 2020-08-02 16:35 | General Progress Note ---
Subjective ROS Limited/Unobtainable: No Allergies: Coded Allergies: No Known Allergies (Unverified , 05/28/20) Subjective vomited again had BM no GT residuals Objective Last 24 Hour Vital Signs Date Time Temp Pulse Resp B/P (MAP) Pulse Ox O2 Delivery O2 Flow Rate FiO2 08/02/20 16:00 Mechanical Ventilator 08/02/20 16:00 107 08/02/20 16:00 108 30 115/52 (73) 95 08/02/20 15:00 115 26 117/52 (73) 96 08/02/20 14:33 120 21 134/40 96 08/02/20 14:22 50 08/02/20 14:03 120 29 143/58 96 08/02/20 14:00 124 30 143/58 (86) 97 08/02/20 13:35 45 08/02/20 13:00 127 33 162/62 (95) 95 08/02/20 12:00 98.5 124 28 117/75 (89) 96 08/02/20 12:00 105 08/02/20 12:00 Mechanical Ventilator 08/02/20 12:00 40 08/02/20 12:00 28 117/75 Mechanical Ventilator 40 08/02/20 11:30 123 39 154/98 (116) 96 08/02/20 11:30 32 154/98 Mechanical Ventilator 45 08/02/20 11:00 123 35 141/99 (113) 98 08/02/20 11:00 35 141/99 Mechanical Ventilator 45 08/02/20 10:30 123 32 196/93 (127) 96 08/02/20 10:00 122 31 150/88 (108) 96 08/02/20 10:00 31 150/88 Mechanical Ventilator 45 08/02/20 09:46 45 08/02/20 09:30 116 34 148/102 (117) 92 08/02/20 09:00 109 33 146/83 (104) 98 08/02/20 09:00 33 146/83 Mechanical Ventilator 50 08/02/20 08:30 109 36 156/78 (104) 96 08/02/20 08:00 Mechanical Ventilator Mechanical Ventilator 08/02/20 08:00 34 151/75 Mechanical Ventilator 50 08/02/20 08:00 97.7 107 39 151/75 (100) 100 08/02/20 08:00 100 08/02/20 08:00 50 08/02/20 07:30 106 31 113/65 (81) 100 08/02/20 07:15 111 47 50 08/02/20 07:00 108 31 146/73 (97) 100 08/02/20 07:00 31 146/73 Mechanical Ventilator 50 08/02/20 06:30 107 32 129/84 (99) 97 08/02/20 06:00 105 142/65 (90) 99 08/02/20 05:30 97 36 130/81 (97) 99 08/02/20 05:17 96 29 50 08/02/20 05:00 96 42 134/79 (97) 99 08/02/20 04:30 93 45 137/91 (106) 98 08/02/20 04:00 Mechanical Ventilator Mechanical Ventilator 08/02/20 04:00 92 48 151/80 (103) 98 08/02/20 04:00 50 08/02/20 04:00 93 08/02/20 03:30 93 27 148/85 (106) 98 08/02/20 03:16 96 28 50 08/02/20 03:15 91 40 130/84 (99) 99 08/02/20 03:00 91 44 139/73 (95) 100 08/02/20 02:00 95 33 141/49 (79) 99 08/02/20 01:30 96 45 131/83 (99) 99 08/02/20 01:07 98 31 50 08/02/20 01:00 42 138/76 Mechanical Ventilator 50 08/02/20 01:00 99 34 128/74 (92) 99 08/02/20 00:30 92 46 131/83 (99) 99 08/02/20 00:00 92 08/02/20 00:00 87 34 112/85 (94) 100 08/02/20 00:00 40 117/84 Mechanical Ventilator 50 08/02/20 00:00 50 08/02/20 00:00 Mechanical Ventilator Mechanical Ventilator 08/01/20 23:00 38 104/23 Mechanical Ventilator 50 08/01/20 23:00 90 36 104/23 (50) 100 08/01/20 22:55 91 31 50 08/01/20 22:30 88 46 123/75 (91) 100 08/01/20 22:00 91 37 126/80 (95) 100 08/01/20 22:00 37 128/58 Mechanical Ventilator 50 08/01/20 21:34 97 34 50 08/01/20 21:30 96 39 125/69 (87) 100 08/01/20 21:00 94 31 117/78 (91) 100 08/01/20 21:00 38 117/72 Mechanical Ventilator 50 08/01/20 20:30 97 49 116/58 (77) 100 08/01/20 20:15 97 38 119/48 (71) 100 08/01/20 20:00 Mechanical Ventilator Mechanical Ventilator 08/01/20 20:00 30 134/43 Mechanical Ventilator 50 08/01/20 20:00 96 08/01/20 20:00 99 36 134/43 (73) 98 08/01/20 20:00 50 08/01/20 19:30 97 31 128/93 (105) 100 08/01/20 19:12 98 25 50 08/01/20 19:00 97 37 134/89 (104) 99 08/01/20 19:00 38 126/80 Mechanical Ventilator 50 08/01/20 18:30 97 29 132/82 (99) 99 08/01/20 18:00 26 132/82 Mechanical Ventilator 50 08/01/20 18:00 95 22 133/82 (99) 95 08/01/20 17:30 94 26 120/47 (71) 100 08/01/20 17:00 28 124/69 Mechanical Ventilator 50 08/01/20 17:00 95 29 124/69 (87) 100 Intake and Output 08/01/20 08/02/20 19:00 07:00 Intake Total 191 ml 342 ml Output Total 1075 ml 1050 ml Balance -884 ml -708 ml Free Water 10 ml IV Total 111 ml 77 ml Tube Feeding 80 ml 255 ml Output Urine Total 1075 ml 1050 ml Chest Tube Drainage Total 0 ml 0 ml Laboratory Tests 08/01/20 17:36: POC Whole Blood Glucose 120H 08/02/20 03:50: Sodium Level 142, Potassium Level 4.8, Chloride Level 99, Carbon Dioxide Level 39H, Anion Gap 4L, Blood Urea Nitrogen 11, Creatinine 1.1#, Estimat Glomerular Filtration Rate 52.8, Glucose Level 119H, Uric Acid 4.5, Calcium Level 7.8L, Phosphorus Level 3.1, Magnesium Level 1.6L, Total Bilirubin 0.5, Aspartate Amino Transf (AST/SGOT) 30, Alanine Aminotransferase (ALT/SGPT) 18, Alkaline Phosphatase 70, C-Reactive Protein, Quantitative 4.9H, Pro-B-Type Natriuretic Peptide 2896H, Total Protein 6.3L, Albumin 2.3L, Globulin 4.0, Albumin/Globulin Ratio 0.6L, Vancomycin Level Trough 17.2H Height (Feet): 5 Height (Inches): 5.00 Weight (Pounds): 223 General Appearance: no apparent distress EENT: normal ENT inspection Neck: supple Cardiovascular: normal rate Respiratory/Chest: decreased breath sounds Abdomen: hypoactive bowel sounds Extremities: non-tender Assessment/Plan Problem List: (1) Morbid obesity ICD Codes: E66.01 - Morbid (severe) obesity due to excess calories SNOMED: 621658157 (2) DEVENDRA (acute kidney injury) ICD Codes: N17.9 - Acute kidney failure, unspecified SNOMED: 8136846, 68481735 (3) Diabetes mellitus out of control ICD Codes: E11.65 - Type 2 diabetes mellitus with hyperglycemia SNOMED: 50386439, 389040796 (4) Pneumonia due to COVID-19 virus ICD Codes: U07.1 - COVID-19; J12.82 - Pneumonia due to coronavirus disease 2019 SNOMED: [id number] (5) Hypoxia ICD Codes: R09.02 - Hypoxemia SNOMED: 275657422 (6) Respiratory failure ICD Codes: J96.90 - Respiratory failure, unspecified, unspecified whether with hypoxia or hypercapnia SNOMED: 036497445 Status: unchanged Assessment/Plan: s/p PEG GTF colace miralax zofran reglan will Ryan Dubose MD Aug 02, 2020 16:35
--- NOTE | 2020-08-02 16:45 | Cardiac Electrophysiology PN ---
Assessment/Plan Assessment/Plan 1. Respiratory failure due to COVID-19 pneumonia. On tracheostomy on 50 % Fio2. Trach exchanged 07/22/[address] Devine Echo EF 60% 2. S/P Code x2 with hypotension and sammy arrest on 07/22/20 likely due to Pneumothorax. HR stable 3. Right Pneumothorax, S/P chest tube placement. Removed 07/29/20 Thoravent palced 07/30/20 4. Hypotension, on midodrine 10 mg 3 times daily and off pressors 5. Dysphagia. S/P PEG 07/24/20 6. Right lower extremity DVT. Follow up by Hematology. 7. Severe anemia, S/P PRBC DW RN Subjective Subjective Coded twice for hypotension and bradycardia while on the Vent about 20 minutes after tracheostomy was changed 07/22/20 Found to have Right Pneumothorax and underwent Right chest tube placement by Dr. Devine S/P PRBC. S/P PEG 07/24/20. Chest tube removed 07/29/20 New Thora vent was placed by Dr Devine 07/30/20 In ICU on the Vent on 50 % Fio2 and PEEP 5 In SR. Off pressors On Lasix 40 iv bid Objective Last 24 Hour Vital Signs Date Time Temp Pulse Resp B/P (MAP) Pulse Ox O2 Delivery O2 Flow Rate FiO2 08/02/20 16:00 Mechanical Ventilator 08/02/20 16:00 107 08/02/20 16:00 108 30 115/52 (73) 95 08/02/20 15:00 115 26 117/52 (73) 96 08/02/20 14:33 120 21 134/40 96 08/02/20 14:22 50 08/02/20 14:03 120 29 143/58 96 08/02/20 14:00 124 30 143/58 (86) 97 08/02/20 13:35 45 08/02/20 13:00 127 33 162/62 (95) 95 08/02/20 12:00 98.5 124 28 117/75 (89) 96 08/02/20 12:00 105 08/02/20 12:00 Mechanical Ventilator 08/02/20 12:00 40 08/02/20 12:00 28 117/75 Mechanical Ventilator 40 08/02/20 11:30 123 39 154/98 (116) 96 08/02/20 11:30 32 154/98 Mechanical Ventilator 45 08/02/20 11:00 123 35 141/99 (113) 98 08/02/20 11:00 35 141/99 Mechanical Ventilator 45 08/02/20 10:30 123 32 196/93 (127) 96 08/02/20 10:00 122 31 150/88 (108) 96 08/02/20 10:00 31 150/88 Mechanical Ventilator 45 08/02/20 09:46 45 08/02/20 09:30 116 34 148/102 (117) 92 08/02/20 09:00 109 33 146/83 (104) 98 08/02/20 09:00 33 146/83 Mechanical Ventilator 50 08/02/20 08:30 109 36 156/78 (104) 96 08/02/20 08:00 Mechanical Ventilator Mechanical Ventilator 08/02/20 08:00 34 151/75 Mechanical Ventilator 50 08/02/20 08:00 97.7 107 39 151/75 (100) 100 08/02/20 08:00 100 08/02/20 08:00 50 08/02/20 07:30 106 31 113/65 (81) 100 08/02/20 07:15 111 47 50 08/02/20 07:00 108 31 146/73 (97) 100 08/02/20 07:00 31 146/73 Mechanical Ventilator 50 08/02/20 06:30 107 32 129/84 (99) 97 08/02/20 06:00 105 142/65 (90) 99 08/02/20 05:30 97 36 130/81 (97) 99 08/02/20 05:17 96 29 50 08/02/20 05:00 96 42 134/79 (97) 99 08/02/20 04:30 93 45 137/91 (106) 98 08/02/20 04:00 Mechanical Ventilator Mechanical Ventilator 08/02/20 04:00 92 48 151/80 (103) 98 08/02/20 04:00 50 08/02/20 04:00 93 08/02/20 03:30 93 27 148/85 (106) 98 08/02/20 03:16 96 28 50 08/02/20 03:15 91 40 130/84 (99) 99 08/02/20 03:00 91 44 139/73 (95) 100 08/02/20 02:00 95 33 141/49 (79) 99 08/02/20 01:30 96 45 131/83 (99) 99 08/02/20 01:07 98 31 50 08/02/20 01:00 42 138/76 Mechanical Ventilator 50 08/02/20 01:00 99 34 128/74 (92) 99 08/02/20 00:30 92 46 131/83 (99) 99 08/02/20 00:00 92 08/02/20 00:00 87 34 112/85 (94) 100 08/02/20 00:00 40 117/84 Mechanical Ventilator 50 08/02/20 00:00 50 08/02/20 00:00 Mechanical Ventilator Mechanical Ventilator 08/01/20 23:00 38 104/23 Mechanical Ventilator 50 08/01/20 23:00 90 36 104/23 (50) 100 08/01/20 22:55 91 31 50 08/01/20 22:30 88 46 123/75 (91) 100 08/01/20 22:00 91 37 126/80 (95) 100 08/01/20 22:00 37 128/58 Mechanical Ventilator 50 08/01/20 21:34 97 34 50 08/01/20 21:30 96 39 125/69 (87) 100 08/01/20 21:00 94 31 117/78 (91) 100 08/01/20 21:00 38 117/72 Mechanical Ventilator 50 08/01/20 20:30 97 49 116/58 (77) 100 08/01/20 20:15 97 38 119/48 (71) 100 08/01/20 20:00 Mechanical Ventilator Mechanical Ventilator 08/01/20 20:00 30 134/43 Mechanical Ventilator 50 08/01/20 20:00 96 08/01/20 20:00 99 36 134/43 (73) 98 08/01/20 20:00 50 08/01/20 19:30 97 31 128/93 (105) 100 08/01/20 19:12 98 25 50 08/01/20 19:00 97 37 134/89 (104) 99 08/01/20 19:00 38 126/80 Mechanical Ventilator 50 08/01/20 18:30 97 29 132/82 (99) 99 08/01/20 18:00 26 132/82 Mechanical Ventilator 50 3/11/21 18:00 95 22 133/82 (99) 95 08/01/20 17:30 94 26 120/47 (71) 100 08/01/20 17:00 28 124/69 Mechanical Ventilator 50 08/01/20 17:00 95 29 124/69 (87) 100 Intake and Output 08/01/20 08/02/20 19:00 07:00 Intake Total 191 ml 342 ml Output Total 1075 ml 1050 ml Balance -884 ml -708 ml Free Water 10 ml IV Total 111 ml 77 ml Tube Feeding 80 ml 255 ml Output Urine Total 1075 ml 1050 ml Chest Tube Drainage Total 0 ml 0 ml Laboratory Tests Test 08/01/20 17:36 08/02/20 03:50 POC Whole Blood Glucose 120 MG/DL (74-106) H Sodium Level 142 MMOL/L (136-145) Potassium Level 4.8 MMOL/L (3.5-5.1) Chloride Level 99 MMOL/L (98-107) Carbon Dioxide Level 39 MMOL/L (21-32) H Anion Gap 4 mmol/L (5-15) L Blood Urea Nitrogen 11 mg/dL (7-18) Creatinine 1.1 MG/DL (0.55-1.30) # Estimat Glomerular Filtration Rate 52.8 mL/min (>60) Glucose Level 119 MG/DL (74-106) H Uric Acid 4.5 MG/DL (2.6-7.2) Calcium Level 7.8 MG/DL (8.5-10.1) L Phosphorus Level 3.1 MG/DL (2.5-4.9) Magnesium Level 1.6 MG/DL (1.8-2.4) L Total Bilirubin 0.5 MG/DL (0.2-1.0) Aspartate Amino Transf (AST/SGOT) 30 U/L (15-37) Alanine Aminotransferase (ALT/SGPT) 18 U/L (12-78) Alkaline Phosphatase 70 U/L (46-116) C-Reactive Protein, Quantitative 4.9 mg/dL (0.00-0.90) H Pro-B-Type Natriuretic Peptide 2896 pg/mL (0-125) H Total Protein 6.3 G/DL (6.4-8.2) L Albumin 2.3 G/DL (3.4-5.0) L Globulin 4.0 g/dL Albumin/Globulin Ratio 0.6 (1.0-2.7) L Vancomycin Level Trough 17.2 ug/mL (5.0-12.0) H Microbiology Date/Time Source Procedure Growth Status 08/01/20 04:45 Blood Blood Culture - Preliminary Resulted 07/31/20 14:15 Urine,Clean Catch Urine Culture - Preliminary NO GROWTH AFTER 24 HOURS Resulted 07/31/20 14:15 Urine,Clean Catch Urine Culture - Preliminary NO GROWTH AFTER 24 HOURS Resulted 07/31/20 14:15 Sputum Gram Stain - Final Resulted 07/31/20 14:15 Sputum Culture - Preliminary Gram Negative Bacillus 1 Resulted Objective HEAD AND NECK: Status post tracheostomy LUNGS: Coarse rhonchi. Right ThoraVent in place CARDIOVASCULAR: Regular S1 and S2 with no gallop. ABDOMEN: Soft.S/P PEG EXTREMITIES: 1+ pitting edema. Hill Burger MD Aug 02, 2020 16:45
--- NOTE | 2020-08-02 18:00 | NUR ---
NURSE NOTES: Pt repositioned. FLACC score remains 0 No distress noted.
--- NOTE | 2020-08-02 19:22 | NUR ---
NURSE HAND-OFF REPORT: Latest Vital Signs: Temperature 98.2 , Pulse 98 , B/P 131 /49 , Respiratory Rate 27 , O2 SAT 97 , Mechanical Ventilator, FiO2 50 % . Vital Sign Comment: stable EKG Rhythm: Sinus Rhythm Rhythm change?: N MD Notified?: Pt seen by Dr Burger today Response: no new orders received Latest Meyers Fall Score: 50 Fall Risk: High Risk Safety Measures: Call light Within Reach, Bed Alarm Zone 3, Side Rails Side Rails x2, Bed position Low and Locked. Fall Precautions: Yellow Socks Yellow Gown Door Sign Patient Fall Education Report given to RAKEL Beckett.
--- NOTE | 2020-08-02 19:30 | NUR ---
NURSE NOTES: Pt received from Winsome ELLINGTON. Patient sleeping comfortably, arousable to verbal and tactile stimuli. Trach to vent satting 100%. Right upper chest thoravent to pleurevac connected to H20 seal noted without air leak. Pt has a GT running Glucerna 1.2 at 55 cc/hr without gastric residuals noted. Abdomen is round, soft, and non-tender w/ active bowel sounds to all quadrants. F/C noted draining light jordyn, clear urine. Skin is intact. ROX PICC noted with dry and intact dressing. Bed in lowest position, alarm on, side rails up x 2, call light within reach. Airborne precaution maintained and observed. Will continue to monitor.
[2020-08-02] MEDS ORDERED: Dyna-Hex 2% Top Sol 2oz TOPIC SCH (20:00)
--- NOTE | 2020-08-02 21:30 | NUR ---
NURSE NOTES: patient repositioned patient in bed. suctioned patient. no fever. no s/s of acute distress noted.
[2020-08-02] MEDS: Miralax 17gm pkt ORAL SCH (21:45)
[2020-08-02] MEDS: HYDROcodone/Acetamin 5/325 tab ORAL PRN (21:59)
[2020-08-03] VITALS (29 sets, daily range): BP systolic 96–170; BP diastolic 27–107
--- NOTE | 2020-08-03 | NUR ---
NURSE NOTES: Repositioned patient in bed. oral care provided. Gt intact no residual. no fever. no n/v. will continue plan of care.
[2020-08-03] MEDS: Metoclopramide 10mg/2ml Inj IVP SCH ×4 (00:36→17:47)
[2020-08-03] MEDS: HYDROmorphone 1mg/ml Carpuject IVP PRN ×2 (00:39→14:14)
--- NOTE | 2020-08-03 02:00 | NUR ---
NURSE NOTES: bed bath given tolerated well.
[2020-08-03] MEDS: Meropenem 1 GM in NS 55 ML IVPB SCH ×3 (04:00→20:18)
--- NOTE | 2020-08-03 04:00 | NUR ---
NURSE NOTES: Patient sleeping comfortably. no s/s of acute distress noted. no fever. no pain. frequent visual checks continued.
[2020-08-03 04:50] LABS: BASOPHILS % (AUTO) 1.4 % (0.0-2.0); EOSINOPHILS % (AUTO) 7.5 % (0.0-3.0); HEMATOCRIT 26.7 % (37.0-47.0); LYMPHOCYTES % (AUTO) 21.9 % (20.0-45.0); MEAN CORPUSCULAR VOLUME 96 FL (80-99); MONOCYTES % (AUTO) 11.9 % (1.0-10.0); NEUTROPHILS % (AUTO) 57.3 % (45.0-75.0); PLATELET COUNT 218 K/UL (150-450); RED BLOOD COUNT 2.78 M/UL (4.20-5.40); WHITE BLOOD COUNT 7.3 K/UL (4.8-10.8)
[2020-08-03 05:06] LABS: ALBUMIN 2.3 G/DL (3.4-5.0); ALBUMIN/GLOBULIN RATIO 0.6 (1.0-2.7); BILIRUBIN,TOTAL 0.6 MG/DL (0.2-1.0); CALCIUM 8.2 MG/DL (8.5-10.1); CREATININE 1.3 MG/DL (0.55-1.30); POTASSIUM 4.1 MMOL/L (3.5-5.1)
[2020-08-03] MEDS: Vancomycin 1.25gm Premix q24h IVPB SCH (05:11)
[2020-08-03] MEDS: HYDROcodone/Acetamin 5/325 tab ORAL PRN (05:24)
[2020-08-03] MEDS: Midodrine 10mg tab GT SCH ×4 (05:25→21:00)
--- NOTE | 2020-08-03 06:00 | NUR ---
NURSE NOTES: Patient with facial grimaces and moaning. repositioned pillow support provided not effective. [place] 1 tab via GT given for 5/10 generalized body pain. effective 0/10
--- NOTE | 2020-08-03 07:10 | NUR ---
NURSE HAND-OFF REPORT: Latest Vital Signs: Temperature 98.0 , Pulse 105 , B/P 96 /45 , Respiratory Rate 27 , O2 SAT 100 , Mechanical Ventilator, O2 Flow Rate . Vital Sign Comment: EKG Rhythm: Sinus Tachycardia Rhythm change?: N MD Notified?: MD Response: Latest Meyers Fall Score: 50 Fall Risk: High Risk Safety Measures: Call light Within Reach, Bed Alarm Zone 3, Side Rails Side Rails x2, Bed position Low and Locked. Fall Precautions: Yellow Socks Yellow Gown Door Sign Patient Fall Education Report given to Alfonzo ELLINGTON.
--- NOTE | 2020-08-03 09:15 | NUR ---
NURSE NOTES: Report received from RAKEL Beckett. patient is awake and alert when entering the room. she is able to track staff and follow simple commands. she denies any pain at this time, currently she is receiving tube feeding by G-tube with formula of Glucerna 1.2 at 55ml/hr. ventilator setting is AC 15, TV: 400, FIO2: 50% and peep of 5. She is saturating at 96-97% with no distress noted. Lennon remains draining clear straw urine. Addendum: 08/03/20 at 1232 by Alfonzo Miramontes RN chest tube remains on water seal with no bubbling noted
[2020-08-03] MEDS: Docusate 100mg/10ml Liq GT SCH ×2 (09:34→20:54)
[2020-08-03] MEDS: Enoxaparin 120 mg inj SUBQ SCH ×2 (09:40→20:59)
--- NOTE | 2020-08-03 10:40 | Pulmonology Progress Note ---
Subjective ROS Limited/Unobtainable: No Interval Events: Chest tube removed (07/29), Thoravent(07/30) Constitutional: Reports: fever, other - resolved HEENT: Repors: no symptoms Respiratory: Reports: no symptoms Cardiovascular: Reports: no symptoms Gastrointestinal/Abdominal: Reports: vomiting Genitourinary: Reports: no symptoms Allergies: Coded Allergies: No Known Allergies (Unverified , 05/28/20) All Systems: reviewed and negative except above Objective Last 24 Hour Vital Signs Date Time Temp Pulse Resp B/P (MAP) Pulse Ox O2 Delivery O2 Flow Rate FiO2 08/03/20 10:00 99.0 104 39 143/55 (84) 98 08/03/20 09:00 105 31 137/82 (100) 97 08/03/20 08:00 105 31 102/63 (76) 92 08/03/20 08:00 50 08/03/20 08:00 105 08/03/20 07:02 99 29 50 08/03/20 07:00 107 29 99/49 (66) 99 08/03/20 06:00 105 27 96/45 (62) 100 08/03/20 05:54 98.0 08/03/20 05:00 95 22 125/58 (80) 100 08/03/20 04:00 98.2 104 25 111/56 (74) 100 08/03/20 04:00 50 08/03/20 04:00 Mechanical Ventilator Mechanical Ventilator 08/03/20 04:00 98 08/03/20 03:28 103 35 50 08/03/20 03:00 100 26 117/53 (74) 100 08/03/20 02:00 102 25 119/50 (73) 100 08/03/20 01:09 98.0 08/03/20 01:00 105 22 155/53 (87) 100 08/03/20 00:00 50 08/03/20 00:00 Mechanical Ventilator Mechanical Ventilator 08/03/20 00:00 106 08/03/20 00:00 98.4 113 34 152/61 (91) 96 08/02/20 23:01 104 33 50 08/02/20 23:00 117 31 153/61 (91) 97 08/02/20 22:49 105 30 151/65 99 08/02/20 22:45 112 27 150/52 (84) 99 08/02/20 22:30 108 22 140/54 (82) 99 08/02/20 22:29 98.0 08/02/20 22:19 105 30 151/65 99 08/02/20 22:00 101 26 143/71 (95) 99 08/02/20 21:00 98 26 122/57 (78) 99 08/02/20 20:00 98.0 98 26 140/55 (83) 08/02/20 20:00 98 08/02/20 20:00 Mechanical Ventilator Mechanical Ventilator 08/02/20 20:00 50 08/02/20 19:00 108 32 50 08/02/20 19:00 98 27 97 08/02/20 18:00 97 26 131/49 (76) 98 08/02/20 17:00 97 27 121/52 (75) 97 08/02/20 16:36 98 30 50 08/02/20 16:00 Mechanical Ventilator 08/02/20 16:00 107 08/02/20 16:00 98.2 108 30 115/52 (73) 95 08/02/20 15:00 115 26 117/52 (73) 96 08/02/20 14:33 120 21 134/40 96 08/02/20 14:22 50 08/02/20 14:22 97 28 50 08/02/20 14:03 120 29 143/58 96 08/02/20 14:00 124 30 143/58 (86) 97 08/02/20 13:35 122 30 45 08/02/20 13:35 45 08/02/20 13:00 127 33 162/62 (95) 95 08/02/20 12:00 98.5 124 28 117/75 (89) 96 08/02/20 12:00 105 08/02/20 12:00 Mechanical Ventilator 08/02/20 12:00 40 08/02/20 12:00 28 117/75 Mechanical Ventilator 40 08/02/20 11:30 123 39 154/98 (116) 96 08/02/20 11:30 32 154/98 Mechanical Ventilator 45 08/02/20 11:21 128 31 40 08/02/20 11:00 123 35 141/99 (113) 98 08/02/20 11:00 35 141/99 Mechanical Ventilator 45 Intake and Output 08/02/20 08/03/20 19:00 07:00 Intake Total 1308.500 ml 1400.000 ml Output Total 1005 ml 1450 ml Balance 303.500 ml -50.000 ml Free Water 20 ml 150 ml IV Total 773.500 ml 470.000 ml Tube Feeding 515 ml 660 ml Other 120 ml Output Urine Total 1005 ml 1450 ml Chest Tube Drainage Total 0 ml 0 ml General Appearance: no acute distress HEENT: normocephalic, status post trach Respiratory: chest wall non-tender Cardiovascular: normal peripheral pulses Abdomen: normal bowel sounds, other - s/p PEG Microbiology Date/Time Source Procedure Growth Status 08/01/20 04:45 Blood Blood Culture - Preliminary Gram Negative Rashad Resulted 07/31/20 14:15 Urine,Clean Catch Urine Culture - Final NO GROWTH AFTER 48 HOURS Complete 07/31/20 14:15 Urine,Clean Catch Urine Culture - Final NO GROWTH AFTER 48 HOURS Complete 07/31/20 14:15 Sputum Gram Stain - Final Resulted 07/31/20 14:15 Sputum Culture - Preliminary Pseudomonas Aeruginosa Resulted Laboratory Tests 08/03/20 03:10: White Blood Count 7.3, Red Blood Count 2.78L, Hemoglobin 8.0L, Hematocrit 26.7L, Mean Corpuscular Volume 96, Mean Corpuscular Hemoglobin 28.7, Mean Corpuscular Hemoglobin Concent 29.9L, Red Cell Distribution Width 19.0H, Platelet Count 218, Mean Platelet Volume 7.4, Neutrophils (%) (Auto) 57.3, Lymphocytes (%) (Auto) 21.9, Monocytes (%) (Auto) 11.9H, Eosinophils (%) (Auto) 7.5H, Basophils (%) (Auto) 1.4, Sodium Level 144, Potassium Level 4.1, Chloride Level 99, Carbon Dioxide Level 45*H, Anion Gap 1L, Blood Urea Nitrogen 19H, Creatinine 1.3, Estimat Glomerular Filtration Rate 43.6, Glucose Level 104, Calcium Level 8.2L, Magnesium Level 2.1, Total Bilirubin 0.6, Aspartate Amino Transf (AST/SGOT) 26, Alanine Aminotransferase (ALT/SGPT) 17, Alkaline Phosphatase 65, Total Protein 6.3L, Albumin 2.3L, Globulin 4.0, Albumin/Globulin Ratio 0.6L Current Medications Medications (Trade) Dose Ordered Sig/Zelda Route PRN Reason Start Time Stop Time Status Last Admin Dose Admin Acetaminophen (Tylenol) 650 mg Q4H PRN NG Temp >100.5 07/27/20 03:45 08/26/20 03:44 07/29/20 20:24 Acetaminophen/ Hydrocodone Bitart ([place] 5/325) 1 tab Q4H PRN ORAL Moderate Pain (Pain Scale 4-6) 08/02/20 10:45 08/09/20 10:44 08/03/20 05:24 Calcitonin [place] (Miacalcin) 1 sprays DAILY NASAL 07/22/20 14:00 10/20/20 13:59 08/03/20 10:20 Dextrose (Dextrose 50%) 25 ml Q30M PRN IV Hypoglycemia 06/05/20 10:45 09/03/20 10:44 Dextrose (Dextrose 50%) 50 ml Q30M PRN IV Hypoglycemia 06/05/20 10:45 09/03/20 10:44 Docusate Sodium (Colace) 100 mg EVERY 12 HOURS GT 08/01/20 21:00 08/25/20 17:59 08/03/20 09:34 Enoxaparin Sodium (Lovenox) 110 mg EVERY 12 HOURS SUBQ 07/17/20 21:00 10/15/20 20:59 08/03/20 09:40 Furosemide (Lasix) 40 mg EVERY 12 HOURS IV 08/01/20 11:00 08/31/20 10:59 08/03/20 09:37 Guaifenesin/ Codeine Phosphate (Robitussin with codeine) 5 ml Q6H PRN NG For Cough 07/14/20 14:15 08/13/20 14:14 07/18/20 21:44 Heparin Sodium/ Sodium Chloride (Heparin 1000 units/500ml Premix) 1,000 unit ONCE PRN IV PICC LINE PLACEMENT 08/02/20 10:45 08/04/20 10:44 Hydromorphone HCl (Dilaudid) 2 mg Q4H PRN IVP Severe Pain (Pain Scale 7-10) 08/02/20 13:45 08/09/20 10:44 08/03/20 00:39 Lansoprazole (Prevacid) 30 mg DAILY GT 07/18/20 09:00 08/09/20 08:59 08/03/20 09:34 Lidocaine HCl (Xylocaine 1% 30ml) 30 ml ONCE PRN INJ PICC LINE PLACEMENT 08/02/20 10:45 08/04/20 10:44 Lorazepam (Ativan 2mg/ml 1ml) 1 mg Q4H PRN IV For Anxiety 08/02/20 13:45 08/09/20 13:44 08/02/20 22:19 Meropenem 1 gm/ Sodium Chloride 55 ml @ 110 mls/hr Q8H IVPB 07/22/20 12:00 08/06/20 23:59 08/03/20 04:00 Metoclopramide HCl (Reglan) 10 mg Q6H IVP 08/01/20 18:00 08/31/20 17:59 08/03/20 05:24 Midodrine (Pro-Amatine) 10 mg Q8HR GT 06/30/20 14:00 09/12/20 13:59 08/03/20 06:21 Ondansetron HCl (Zofran) 4 mg Q6H PRN IVP Nausea & Vomiting 08/02/20 10:00 09/01/20 09:59 Polyethylene Glycol (Miralax) 17 gm BEDTIME ORAL 07/26/20 21:00 08/25/20 20:59 08/02/20 21:45 Quetiapine Fumarate (SEROqueL) 75 mg Q8HR GT 08/02/20 14:00 08/30/20 13:59 08/03/20 05:24 Vancomycin HCl 250 ml @ 166.667 mls/hr Q12H IVPB 08/01/20 05:00 08/06/20 04:59 08/03/20 05:11 Vancomycin HCl (Vanco pharmacy to dose) 1 ea DAILY PRN MISC Per rx protocol 07/31/20 11:45 08/30/20 11:44 Assessment/Plan Assessment/Plan 1. COVID-19 pneumonia -Intubated 05/28/20 -s/p solumedrol, Rocephin -Continue PEEP 6 ->7 ->5 - Peak airway pressures better - FiO2 100% -> 90 ->80->60 ->40 ->80 ->100 ->70 ->60 -> 50 ->45 ->40 ->50 ->40-> 80 -> 70->50%; PEEP 7 ->5 - s/p PEG - Sputum Cx pseudo -> on meropenem per ID -> resistant to meropenem. Needs Abx change per ID 2. Hyponatremia -Per primary MD 3. Elevated inflammatory markers - has high D dimer; On Lovenox -> Lovenox held given anemia 4. DVT of the right calf - once stable, consider IVC filter per heme vs oral DOAC - was on Lovenox but held given anemia 5. Decreased PEEP S/p trach Reported cuff leak per RN/RT Changed 07/22/20 however still has cuff leak 6. Leukocytosis; now WBC wnl - ID following - BCx Gram negative rashad - UCx neg - Sp Cx pseudomonas 7. Pulmonary edema - Will start Lasix 40 mg IV Q12h Now off Levophed Now off IV sedation; on Seroquel TID, added [place] and Dilaudid prn s/p PEG Required R CT due to PTX 07/22/20 - CT removed (07/29) ->however, f/u CXR shows PTX with tracheal deviation. CT reinserted (07/30) Begin weaning trials carefully The care of this patient was discussed with my supervising physician Time spent for this encounter was approximately 31 minutes Vamshi Garcia Aug 03, 2020 10:40
--- NOTE | 2020-08-03 10:45 | NUR ---
NURSE NOTES: Vamshi ANDREA of Dr. Nava updated on the patient condition and continues coughing with no secretions on trachea or from the mouth. she remains on tube feeding, Glucerna 1.2 at 55ml/hr. patient is awake and able to follow simple commands and track staff. she is able to node to yes/no questions. she remains on ventilator setting of ac 15, tv400, fio2 50% and peep of 5. saturations remains at 97-98% with no distress noted. no orders given at this time.
--- NOTE | 2020-08-03 11:24 | NUR ---
CASE MANAGEMENT:REVIEW 08/03/20 SI: COVID PNA. RESPIRATORY FAILURE S/P TRACH AND GTUBE 99.0 104 39 143/55 98% ON VENT SUPPORT W/50% FIO2 H/H-8.0/26.7 CO2+45 IS: SEROQUEL GT Q8HRS IV DILAUDID Q4HRS IV REGLAN Q6HRS IV LASIX Q12 IV VANCOMYCIN Q12 IV MEROPENEM Q8HRS LOVENOX SQ Q12 : ICU STATUS DCP: PATIENT WAS FROM HOME BUT NOW NEEDS SUBACUTE D/T TRACH & GT
--- NOTE | 2020-08-03 11:38 | Surgery Progress Note ---
Surgery Progress Note Subjective Procedure Performed right tube chest tube insertion Additional Comments more awake and alert agitated cxr noted will plan remove chest tube when ready Objective Last 24 Hour Vital Signs Date Time Temp Pulse Resp B/P (MAP) Pulse Ox O2 Delivery O2 Flow Rate FiO2 08/03/20 10:00 99.0 104 39 143/55 (84) 98 08/03/20 09:00 105 31 137/82 (100) 97 08/03/20 08:00 105 31 102/63 (76) 92 08/03/20 08:00 50 08/03/20 08:00 Mechanical Ventilator Mechanical Ventilator 08/03/20 08:00 105 08/03/20 07:02 99 29 50 08/03/20 07:00 107 29 99/49 (66) 99 08/03/20 06:00 105 27 96/45 (62) 100 08/03/20 05:54 98.0 08/03/20 05:00 95 22 125/58 (80) 100 08/03/20 04:00 98.2 104 25 111/56 (74) 100 08/03/20 04:00 50 08/03/20 04:00 Mechanical Ventilator Mechanical Ventilator 08/03/20 04:00 98 08/03/20 03:28 103 35 50 08/03/20 03:00 100 26 117/53 (74) 100 08/03/20 02:00 102 25 119/50 (73) 100 08/03/20 01:09 98.0 08/03/20 01:00 105 22 155/53 (87) 100 08/03/20 00:00 50 08/03/20 00:00 Mechanical Ventilator Mechanical Ventilator 08/03/20 00:00 106 08/03/20 00:00 98.4 113 34 152/61 (91) 96 08/02/20 23:01 104 33 50 08/02/20 23:00 117 31 153/61 (91) 97 08/02/20 22:49 105 30 151/65 99 08/02/20 22:45 112 27 150/52 (84) 99 08/02/20 22:30 108 22 140/54 (82) 99 08/02/20 22:29 98.0 08/02/20 22:19 105 30 151/65 99 08/02/20 22:00 101 26 143/71 (95) 99 08/02/20 21:00 98 26 122/57 (78) 99 08/02/20 20:00 98.0 98 26 140/55 (83) 08/02/20 20:00 98 08/02/20 20:00 Mechanical Ventilator Mechanical Ventilator 08/02/20 20:00 50 08/02/20 19:00 108 32 50 08/02/20 19:00 98 27 97 08/02/20 18:00 97 26 131/49 (76) 98 08/02/20 17:00 97 27 121/52 (75) 97 08/02/20 16:36 98 30 50 08/02/20 16:00 Mechanical Ventilator 08/02/20 16:00 107 08/02/20 16:00 98.2 108 30 115/52 (73) 95 08/02/20 15:00 115 26 117/52 (73) 96 08/02/20 14:33 120 21 134/40 96 08/02/20 14:22 50 08/02/20 14:22 97 28 50 08/02/20 14:03 120 29 143/58 96 08/02/20 14:00 124 30 143/58 (86) 97 08/02/20 13:35 122 30 45 08/02/20 13:35 45 08/02/20 13:00 127 33 162/62 (95) 95 08/02/20 12:00 98.5 124 28 117/75 (89) 96 08/02/20 12:00 105 08/02/20 12:00 Mechanical Ventilator 08/02/20 12:00 40 08/02/20 12:00 28 117/75 Mechanical Ventilator 40 I&O Intake and Output 08/02/20 08/03/20 19:00 07:00 Intake Total 1308.500 ml 1400.000 ml Output Total 1005 ml 1450 ml Balance 303.500 ml -50.000 ml Free Water 20 ml 150 ml IV Total 773.500 ml 470.000 ml Tube Feeding 515 ml 660 ml Other 120 ml Output Urine Total 1005 ml 1450 ml Chest Tube Drainage Total 0 ml 0 ml Dressing: dry Cardiovascular: RSR Respiratory: decreased breath sounds Abdomen: soft, non-tender, present bowel sounds, non-distended Extremities: no tenderness, no cyanosis Laboratory Tests Test 08/03/20 03:10 White Blood Count 7.3 K/UL (4.8-10.8) Red Blood Count 2.78 M/UL (4.20-5.40) L Hemoglobin 8.0 G/DL (12.0-16.0) L Hematocrit 26.7 % (37.0-47.0) L Mean Corpuscular Volume 96 FL (80-99) Mean Corpuscular Hemoglobin 28.7 PG (27.0-31.0) Mean Corpuscular Hemoglobin Concent 29.9 G/DL (32.0-36.0) L Red Cell Distribution Width 19.0 % (11.6-14.8) H Platelet Count 218 K/UL (150-450) Mean Platelet Volume 7.4 FL (6.5-10.1) Neutrophils (%) (Auto) 57.3 % (45.0-75.0) Lymphocytes (%) (Auto) 21.9 % (20.0-45.0) Monocytes (%) (Auto) 11.9 % (1.0-10.0) H Eosinophils (%) (Auto) 7.5 % (0.0-3.0) H Basophils (%) (Auto) 1.4 % (0.0-2.0) Sodium Level 144 MMOL/L (136-145) Potassium Level 4.1 MMOL/L (3.5-5.1) Chloride Level 99 MMOL/L (98-107) Carbon Dioxide Level 45 MMOL/L (21-32) *H Anion Gap 1 mmol/L (5-15) L Blood Urea Nitrogen 19 mg/dL (7-18) H Creatinine 1.3 MG/DL (0.55-1.30) Estimat Glomerular Filtration Rate 43.6 mL/min (>60) Glucose Level 104 MG/DL (74-106) Calcium Level 8.2 MG/DL (8.5-10.1) L Magnesium Level 2.1 MG/DL (1.8-2.4) Total Bilirubin 0.6 MG/DL (0.2-1.0) Aspartate Amino Transf (AST/SGOT) 26 U/L (15-37) Alanine Aminotransferase (ALT/SGPT) 17 U/L (12-78) Alkaline Phosphatase 65 U/L (46-116) Total Protein 6.3 G/DL (6.4-8.2) L Albumin 2.3 G/DL (3.4-5.0) L Globulin 4.0 g/dL Albumin/Globulin Ratio 0.6 (1.0-2.7) L Plan Problems: (1) Respiratory distress (2) Respiratory failure Assessment & Plan: 50-year-old female Covid positive respiratory insufficiency intubated on ventilatory support declining. Leukocytosis increase oxygen requirement. Vent settings per pulmonology reviewed identified and agree. Unfortunately further surgical invention at this time is not appropriate as patient is not a candidate and her current condition. Prognosis overall guarded. Tracheostomy can be considered in the future if recovering or shows improvement and requires unable to be weaned from ventilator support. Currently okay for nutritional optimization with NG tube. Will need significant monitoring for decubitus formation given patient's size and condition. Okay for air mattress tolerated. Turn every 2 hours as tolerated. Patient is otherwise critically ill and blood pressure labile. Will need to monitor closely.Bilateral infiltrates are again demonstrated. Stable tube and line positions. will need trach will need to wean vent first no cuff leak trach okay Improving weaning well DC planning placement much improved peg placement trach changed acls now resuscitated (3) Hypoxia (4) Pneumonia due to COVID-19 virus Assessment & Plan: ++ as per pulm and ID (5) Diabetes mellitus out of control Assessment & Plan: DAILY ESTIMATED NEEDS: Needs based on Critical care, obesity 11-14kcal/kg actual body wt (140kg) kcals/kg 0102-5494 total kcals 1.5-2.0g prot/kg IBW (64.5kg) g protein/kg 96-129 g total protein 25-30ml/kg abw (83kg) mL/kg 4689-7354 total fluid mLs NUTRITION DIAGNOSIS: Swallowing difficulty R/T respiratory failure as evidenced by pt orally intubated and sedated, on OGT feeds. CURRENT TF: Vital 1.2 goal of 60ml/hr ENTERAL NUTRITION RECOMMENDATIONS: Vital AF 1.2 @ 60ml/hr x 24 hrs to provide 1440ml, 1728kcal, 108g prot, 1168ml free water * Maintain current critical care and carb controlled TF formula of Vital AF * TF @ goal meeds 100% est kcal/prot needs * HOB over 30 degrees/ water flush per TF may be lowered to 55ml/hr for improved BG control while maintaining Kcal and pro needs. ADDITIONAL RECOMMENDATIONS: * Calibrated bedscale wt * Monitor Propofol rate, need for TF adjustment-> now off * Monitor BGs closely : now improved, on novolog q 6rs + NISS * Monitor lytes- K elevated, monitor need for TF change * Rec bowel regimen- now w/ rectal tube . (6) Pneumothorax on right Assessment & Plan: right tension pneumothorax trach changed for cuff leak and decreased volumes pressures high after and ptx tension acls resuscitated right chest tube placed ptx resolved cont chest tube to suction am cxr wean vent Right chest tube, tracheostomy, nasogastric tube remain. Previously demonstrated subcutaneous emphysema has nearly completely cleared, with only questionably small residual in the left supraclavicular fossa. Extensive bilateral infiltrates persist. There is no pneumothorax currently. The heart is borderline enlarged. Pneumoperitoneum persists, may be slightly decreased Impression: Markedly improved subcutaneous emphysema Unchanged bilateral infiltrates Persistent but perhaps slightly decreased pneumoperitoneum chest tube removed 07/29 f/u cxr new chest tube 07/30 tolerating tube feeds no n/v weaning vent well cxr reviewed tube okay no large ptx stable cont chest tube to water seal (7) DEVENDRA (acute kidney injury) (8) Morbid obesity Az Devine Aug 03, 2020 11:38
--- NOTE | 2020-08-03 11:57 | Infectious Diseases Prog Note ---
Assessment/Plan Assessment/Plan A 1. COVID19 pneumonia 2. Hypoxic respiratory failure 3. Morbid obesity 4. DM type 2 5. Thrombocytopenia 6. leukocytosis resolved 7. Pseudomonas pneumonia 8. Anemia 9. VDRF 10. Cardiac arrest 11. UTI 12. Right pneumothorax 13 Gastrostomy status 14, Gram negative sepsis P 1. Finished remdesivir course 2. Finished steroid course 3.Continue Meropenem 4. Discontinue Vancomycin 5. Start on Levaquin Subjective ROS Limited/Unobtainable: Yes Cardiovascular: Reports: other - PICC line was removed Allergies: Coded Allergies: No Known Allergies (Unverified , 05/28/20) Objective Last 24 Hour Vital Signs Date Time Temp Pulse Resp B/P (MAP) Pulse Ox O2 Delivery O2 Flow Rate FiO2 08/03/20 10:00 99.0 104 39 143/55 (84) 98 08/03/20 09:00 105 31 137/82 (100) 97 08/03/20 08:00 105 31 102/63 (76) 92 08/03/20 08:00 50 08/03/20 08:00 Mechanical Ventilator Mechanical Ventilator 08/03/20 08:00 105 08/03/20 07:02 99 29 50 08/03/20 07:00 107 29 99/49 (66) 99 08/03/20 06:00 105 27 96/45 (62) 100 08/03/20 05:54 98.0 08/03/20 05:00 95 22 125/58 (80) 100 08/03/20 04:00 98.2 104 25 111/56 (74) 100 08/03/20 04:00 50 08/03/20 04:00 Mechanical Ventilator Mechanical Ventilator 08/03/20 04:00 98 08/03/20 03:28 103 35 50 08/03/20 03:00 100 26 117/53 (74) 100 08/03/20 02:00 102 25 119/50 (73) 100 08/03/20 01:09 98.0 08/03/20 01:00 105 22 155/53 (87) 100 08/03/20 00:00 50 08/03/20 00:00 Mechanical Ventilator Mechanical Ventilator 08/03/20 00:00 106 08/03/20 00:00 98.4 113 34 152/61 (91) 96 08/02/20 23:01 104 33 50 08/02/20 23:00 117 31 153/61 (91) 97 08/02/20 22:49 105 30 151/65 99 08/02/20 22:45 112 27 150/52 (84) 99 08/02/20 22:30 108 22 140/54 (82) 99 08/02/20 22:29 98.0 08/02/20 22:19 105 30 151/65 99 08/02/20 22:00 101 26 143/71 (95) 99 08/02/20 21:00 98 26 122/57 (78) 99 08/02/20 20:00 98.0 98 26 140/55 (83) 08/02/20 20:00 98 08/02/20 20:00 Mechanical Ventilator Mechanical Ventilator 08/02/20 20:00 50 08/02/20 19:00 108 32 50 08/02/20 19:00 98 27 97 08/02/20 18:00 97 26 131/49 (76) 98 08/02/20 17:00 97 27 121/52 (75) 97 08/02/20 16:36 98 30 50 08/02/20 16:00 Mechanical Ventilator 08/02/20 16:00 107 08/02/20 16:00 98.2 108 30 115/52 (73) 95 08/02/20 15:00 115 26 117/52 (73) 96 08/02/20 14:33 120 21 134/40 96 08/02/20 14:22 50 08/02/20 14:22 97 28 50 08/02/20 14:03 120 29 143/58 96 08/02/20 14:00 124 30 143/58 (86) 97 08/02/20 13:35 122 30 45 08/02/20 13:35 45 08/02/20 13:00 127 33 162/62 (95) 95 08/02/20 12:00 98.5 124 28 117/75 (89) 96 08/02/20 12:00 105 08/02/20 12:00 Mechanical Ventilator 08/02/20 12:00 40 08/02/20 12:00 28 117/75 Mechanical Ventilator 40 Height (Feet): 5 Height (Inches): 5.00 Weight (Pounds): 223 HEENT: status post trach Respiratory/Chest: rhonchi - bilaterally, other - on ventilator, FIO@=50%, R chest tube Cardiovascular: tachycardia Abdomen: soft, non tender, other - GT feeding Extremities: other - edema more in arms Skin: ulcers, other - chest wall Neurologic/Psychiatric: alert, disoriented Microbiology Date/Time Source Procedure Growth Status 08/01/20 04:45 Blood Blood Culture - Preliminary Gram Negative Rashad Resulted 07/31/20 14:15 Urine,Clean Catch Urine Culture - Final NO GROWTH AFTER 48 HOURS Complete 07/31/20 14:15 Urine,Clean Catch Urine Culture - Final NO GROWTH AFTER 48 HOURS Complete 07/31/20 14:15 Sputum Gram Stain - Final Resulted 07/31/20 14:15 Sputum Culture - Preliminary Pseudomonas Aeruginosa Resulted Laboratory Tests Test 08/03/20 03:10 White Blood Count 7.3 K/UL (4.8-10.8) Red Blood Count 2.78 M/UL (4.20-5.40) L Hemoglobin 8.0 G/DL (12.0-16.0) L Hematocrit 26.7 % (37.0-47.0) L Mean Corpuscular Volume 96 FL (80-99) Mean Corpuscular Hemoglobin 28.7 PG (27.0-31.0) Mean Corpuscular Hemoglobin Concent 29.9 G/DL (32.0-36.0) L Red Cell Distribution Width 19.0 % (11.6-14.8) H Platelet Count 218 K/UL (150-450) Mean Platelet Volume 7.4 FL (6.5-10.1) Neutrophils (%) (Auto) 57.3 % (45.0-75.0) Lymphocytes (%) (Auto) 21.9 % (20.0-45.0) Monocytes (%) (Auto) 11.9 % (1.0-10.0) H Eosinophils (%) (Auto) 7.5 % (0.0-3.0) H Basophils (%) (Auto) 1.4 % (0.0-2.0) Sodium Level 144 MMOL/L (136-145) Potassium Level 4.1 MMOL/L (3.5-5.1) Chloride Level 99 MMOL/L (98-107) Carbon Dioxide Level 45 MMOL/L (21-32) *H Anion Gap 1 mmol/L (5-15) L Blood Urea Nitrogen 19 mg/dL (7-18) H Creatinine 1.3 MG/DL (0.55-1.30) Estimat Glomerular Filtration Rate 43.6 mL/min (>60) Glucose Level 104 MG/DL (74-106) Calcium Level 8.2 MG/DL (8.5-10.1) L Magnesium Level 2.1 MG/DL (1.8-2.4) Total Bilirubin 0.6 MG/DL (0.2-1.0) Aspartate Amino Transf (AST/SGOT) 26 U/L (15-37) Alanine Aminotransferase (ALT/SGPT) 17 U/L (12-78) Alkaline Phosphatase 65 U/L (46-116) Total Protein 6.3 G/DL (6.4-8.2) L Albumin 2.3 G/DL (3.4-5.0) L Globulin 4.0 g/dL Albumin/Globulin Ratio 0.6 (1.0-2.7) L Current Medications Medications (Trade) Dose Ordered Sig/Zelda Route PRN Reason Start Time Stop Time Status Last Admin Dose Admin Acetaminophen (Tylenol) 650 mg Q4H PRN NG Temp >100.5 07/27/20 03:45 08/26/20 03:44 07/29/20 20:24 Acetaminophen/ Hydrocodone Bitart ([place] 5/325) 1 tab Q4H PRN ORAL Moderate Pain (Pain Scale 4-6) 08/02/20 10:45 08/09/20 10:44 08/03/20 05:24 Calcitonin [place] (Miacalcin) 1 sprays DAILY NASAL 07/22/20 14:00 10/20/20 13:59 08/03/20 10:20 Dextrose (Dextrose 50%) 25 ml Q30M PRN IV Hypoglycemia 06/05/20 10:45 09/03/20 10:44 Dextrose (Dextrose 50%) 50 ml Q30M PRN IV Hypoglycemia 06/05/20 10:45 09/03/20 10:44 Docusate Sodium (Colace) 100 mg EVERY 12 HOURS GT 08/01/20 21:00 08/25/20 17:59 08/03/20 09:34 Enoxaparin Sodium (Lovenox) 110 mg EVERY 12 HOURS SUBQ 07/17/20 21:00 10/15/20 20:59 08/03/20 09:40 Furosemide (Lasix) 40 mg EVERY 12 HOURS IV 08/01/20 11:00 08/31/20 10:59 08/03/20 09:37 Guaifenesin/ Codeine Phosphate (Robitussin with codeine) 5 ml Q6H PRN NG For Cough 07/14/20 14:15 08/13/20 14:14 07/18/20 21:44 Heparin Sodium/ Sodium Chloride (Heparin 1000 units/500ml Premix) 1,000 unit ONCE PRN IV PICC LINE PLACEMENT 08/02/20 10:45 08/04/20 10:44 Hydromorphone HCl (Dilaudid) 2 mg Q4H PRN IVP Severe Pain (Pain Scale 7-10) 08/02/20 13:45 08/09/20 10:44 08/03/20 00:39 Lansoprazole (Prevacid) 30 mg DAILY GT 07/18/20 09:00 08/09/20 08:59 08/03/20 09:34 Lidocaine HCl (Xylocaine 1% 30ml) 30 ml ONCE PRN INJ PICC LINE PLACEMENT 08/02/20 10:45 08/04/20 10:44 Lorazepam (Ativan 2mg/ml 1ml) 1 mg Q4H PRN IV For Anxiety 08/02/20 13:45 08/09/20 13:44 08/02/20 22:19 Meropenem 1 gm/ Sodium Chloride 55 ml @ 110 mls/hr Q8H IVPB 07/22/20 12:00 08/06/20 23:59 08/03/20 04:00 Metoclopramide HCl (Reglan) 10 mg Q6H IVP 08/01/20 18:00 08/31/20 17:59 08/03/20 05:24 Midodrine (Pro-Amatine) 10 mg Q8HR GT 06/30/20 14:00 09/12/20 13:59 08/03/20 06:21 Ondansetron HCl (Zofran) 4 mg Q6H PRN IVP Nausea & Vomiting 08/02/20 10:00 09/01/20 09:59 Polyethylene Glycol (Miralax) 17 gm BEDTIME ORAL 07/26/20 21:00 08/25/20 20:59 08/02/20 21:45 Quetiapine Fumarate (SEROqueL) 75 mg Q8HR GT 08/02/20 14:00 08/30/20 13:59 08/03/20 05:24 Vancomycin HCl 250 ml @ 166.667 mls/hr Q12H IVPB 08/01/20 05:00 08/06/20 04:59 08/03/20 05:11 Vancomycin HCl (Vanco pharmacy to dose) 1 ea DAILY PRN MISC Per rx protocol 07/31/20 11:45 08/30/20 11:44 Colt Arana MD Aug 03, 2020 11:57
--- NOTE | 2020-08-03 12:01 | NUR ---
INSURANCE CLINICALS FAXED TO [facility] T: [phone] EXT [id number] F: [phone]
--- NOTE | 2020-08-03 12:07 | NUR ---
NURSE NOTES: Dr. Santacruz updated on the sputum culture results from 07/31, the results indicated that the bacteria found were resistant to meropenem, informed of the results of the culture, dr. santacruz will review the chart to place orders accordingly
[2020-08-03] MEDS: Levofloxacin 750mg tab ORAL SCH (12:59)
--- NOTE | 2020-08-03 13:45 | NUR ---
NURSE NOTES: Dr. Burger updated on the patient hear rate ranging from sinus rhythm to sinus thachycardia. when she is coughing continuously, heart rat increased but shortly after there is no mpre coughing her hear rate in normalized to around 95-105. no verbal orders given at this time.
--- NOTE | 2020-08-03 13:53 | Nephrology Progress Note ---
Assessment/Plan Problem List: (1) DEVENDRA (acute kidney injury) (2) Morbid obesity (3) Diabetes mellitus out of control (4) Pneumonia due to COVID-19 virus (5) Respiratory failure Assessment Acute renal failure Obstructive uropathy, clogged [place] Respiratory failure COVID-19 pneumonia Morbid obesity Plan August 03: Status quo. Labs reviewed. Renal parameters stable. Patient full code. Continue per pulmonary. August 02: Continues to have chest tube. Full code. Trach and vent. PEG. Renal parameters stable. August 01: Status quo. Leukocytosis resolved. Renal parameters stable. Continues to be vented through trach. Has PEG. Continue per consultants. Patient is full code. July 31: Chest tube was right reinserted on the right side. Patient remains trached on vent. Leukocytosis worsened . Renal parameters unchanged. Continue per current treatment plan. July 30: Status quo. Labs reviewed. Medication list reviewed. Stable from renal standpoint of view. Patient is full code, trached and vent, also has PEG. July 29: Status quo. Discussed with RN. Labs and medication list reviewed. Stable from renal standpoint of view. July 28: Full code. Labs reviewed. Abnormal electrolytes addressed. Medication list reviewed. Patient has trach and PEG and on ventilator. Continue per consultants. July 27: Full code. In ICU. Trach to vent. Labs reviewed. Renal parameters and electrolytes stable. July 26: Remains in ICU. Remains full code. Trach to vent. Labs reviewed. Abnormal electrolytes addressed. Continue per consultants. July 25: Seen in ICU. Received PEG yesterday. Has trach connected to vent. Full code. Labs reviewed. Albumin bolus given. IV started on table feeding vi a GT tube initiated. July 24: Patient seen in ICU. Status quo. Has trach. Being ventilated. Has right chest tube. Labs reviewed. Continue per consultants. Low magnesium and low phosphorus replaced. July 23: Patient seen in ICU. Discussed with RN. Yesterday the patient developed tension pneumothorax. Patient has a chest tube today. Labs reviewed. Renal parameters stable. Medication list reviewed. July 22: Status quo. Labs reviewed. Serum calcium elevated. Vitamin D discontinued. Pamidronate 60 mg IV given. Continue to monitor calcium and phosphorus. Patient due for PEG today. July 21: Status quo. Awake responsive. Labs reviewed. Medication list reviewed. Stable from renal standpoint of view. Due for PEG tomorrow. Continue her current management. July 20: Status quo. PEG procedure deferred to July 22. Patient remains full code. Abnormal electrolytes addressed. FiO2 50% unchanged. Continue per consultants. July 19: Status quo. Due for PEG insertion today. Remains full code. Trach and vent. Low magnesium addressed. Continue per consultants. FiO2 50%. July 18: Status quo. Labs reviewed. Low potassium addressed. Continue per consultants. Remains full code. July 17: Remains full code. Trach to vent. FiO2 40%. Labs reviewed. Low potassium addressed. Continue per consultants. July 16: Status quo. FiO2 45%. Discussed with RN. Continue to taper her mind altering medications and sedatives. Stable from renal standpoint of view. Abnormal electrolytes addressed. July 15: Full code. FiO2 50%. Intubated on ventilator. No labs drawn today. Continue per consultants. July 14: Status quo. FiO2 50%. Labs reviewed. Renal parameters stable. Continue per current treatment plan and consultants. Medication list reviewed. July 13: FiO2 60% unchanged. Labs reviewed. Renal parameters stable. Medication list reviewed. Continue per consultants. July 12: Full code. Labs reviewed. Normal electrolytes addressed. Continue per pulmonary. Medication list reviewed. July 11: Remains full code. On ventilator. FiO2 down to 65%. Renal parameters stable. Low magnesium addressed. Continue her current management. July 10: Full code. On ventilator. FiO2 70%. Hemoglobin mid sevens. Renal parameters stable. Continue per consultants. July 09: Labs reviewed. Renal parameters stable. FiO2 80% unchanged. Continue per pulmonary. July 08: Labs reviewed. Renal parameters and electrolytes stable. ABG suggestive of high PCO2. At this time patient is on FiO2 of 80%. Continue per pulmonary. Continue to monitor renal parameters. July 07: No CHEM panel drawn today. More potassium given. Continue to monitor renal parameters. Continue per consultants. Discussed with RAKEL Veras. July 06: Low potassium addressed. Albumin bolus for low BP given. Patient remains full code. Continue to monitor electrolytes and renal parameters. Continue per consultants. Hemoglobin low today, transfusion per hospice patient care secretary. July 05: Trach to vent. FiO2 80%. Renal parameters stable. PCO2 remains high at 44. Continue to monitor renal parameters. July 04: Patient now trach. Full code. Labs reviewed. Renal parameters stable. Low magnesium addressed. July 03: Intubated. Full code. Labs reviewed. Abnormal electrolytes addressed. Continue per consultants. Overall status unchanged. July 02: Remains intubated. Remains full code. Remains on FiO2 of 70%. Labs reviewed. Abnormal electrolytes addressed. Continue per pulmonary. July 01: Remains on 70% FiO2. Full code. Intubated on ventilator. Retaining CO2. Discussed with RN. Will do ABG today. Albumin bolus given. 1 dose of Diamox given. June 30: Status quo. Labs reviewed. Abnormal electrolytes addressed. Remains full code. Remains on ventilator. Magnesium sulfate 4 gram IVPB given. June 29: Full code. Intubated on ventilator. Labs reviewed. Stable from renal standpoint of view. Continue per consultants. June 28: Remains full code. Remains intubated on ventilator. Labs reviewed. Vitamin D supplement ordered. Continue to monitor renal parameters. Continue per consultants. June 27: Remains full code. Intubated on ventilator. Labs reviewed. Abnormal electrolyte addressed. Continue to monitor renal parameters and electrolytes. Continue per consultants. June 26: Labs reviewed. Remains full code. Remains intubated. Back on NGT feeding. Continue to monitor renal parameters. June 25: Labs reviewed. Renal parameters stable. Remains full code. Due to positional status patient could not be fed via NG tube. Starting TPN? Is being entertained. Continue per consultants. June 24: Labs reviewed. Renal parameters stable. Remains full code. Remains intubated on ventilator. Continue per consultants. June 23: Labs reviewed. Renal parameters stable. Discussed with RN. Abnormal electrolyte addressed. Remains full code. Remains on ventilator. Continue per consultants. June 22: Labs reviewed. Low potassium addressed. Discussed with RAKEL Moran. Patient full code. Remains on ventilator. Continue to monitor renal parameters. June 21. Labs reviewed. Abnormal electrolyte addressed. Full code. Remains on ventilator. Medication list reviewed. Continue per pulmonary management. DC IV fluid, resume Lasix daily, check chest x-ray. June 20: Labs reviewed. Abnormal electrolytes. Patient remains full code. Continue per consultants. Noted and addressed June 19: Labs reviewed. Abnormal electrolytes noted and addressed. Remains intubated on ventilator. Remains full code. June 18: Labs reviewed. Remains intubated on ventilator. Full code. Abnormal electrolyte addressed. Continue as is. June 17: Labs reviewed. Abnormal electrolytes addressed. Patient remains full code and intubated on ventilator. Continue per consultants. Renal parameters are within normal limits. June 16: Labs reviewed. Potassium chloride replaced. Remains full code. Remains intubated on ventilator. Continue per consultants. Continue to monitor renal parameters. June 15: Labs reviewed. Serum creatinine 1. Stable from renal standpoint to view. Continue per consultants. June 14: Labs reviewed. Full code. Serum creatinine of 3.5 down to 1.4. Low potassium addressed. Continue per current treatment plan. Continue to monitor renal parameters. Midodrine started. Albumin bolus given. Previously: DC Lasix drip Increase Protonix dose Monitor renal parameters, electrolytes Per orders Subjective ROS Limited/Unobtainable: Yes Objective Objective Last 24 Hour Vital Signs Date Time Temp Pulse Resp B/P (MAP) Pulse Ox O2 Delivery O2 Flow Rate FiO2 08/03/20 13:00 101 34 128/68 (88) 98 08/03/20 12:10 50 08/03/20 12:01 99.5 105 36 140/57 (84) 99 08/03/20 12:00 105 36 140/57 (84) 99 08/03/20 12:00 50 08/03/20 12:00 Mechanical Ventilator Mechanical Ventilator 08/03/20 12:00 108 08/03/20 11:20 102 32 35 35 08/03/20 11:00 105 37 138/51 (80) 99 08/03/20 10:00 99.0 104 39 143/55 (84) 98 08/03/20 09:00 105 31 137/82 (100) 97 08/03/20 08:00 105 31 102/63 (76) 92 08/03/20 08:00 50 08/03/20 08:00 Mechanical Ventilator Mechanical Ventilator 08/03/20 08:00 105 08/03/20 07:02 99 29 50 08/03/20 07:00 107 29 99/49 (66) 99 08/03/20 06:00 105 27 96/45 (62) 100 08/03/20 05:54 98.0 08/03/20 05:00 95 22 125/58 (80) 100 08/03/20 04:00 98.2 104 25 111/56 (74) 100 08/03/20 04:00 50 08/03/20 04:00 Mechanical Ventilator Mechanical Ventilator 08/03/20 04:00 98 08/03/20 03:28 103 35 50 08/03/20 03:00 100 26 117/53 (74) 100 08/03/20 02:00 102 25 119/50 (73) 100 08/03/20 01:09 98.0 08/03/20 01:00 105 22 155/53 (87) 100 08/03/20 00:00 50 08/03/20 00:00 Mechanical Ventilator Mechanical Ventilator 08/03/20 00:00 106 08/03/20 00:00 98.4 113 34 152/61 (91) 96 08/02/20 23:01 104 33 50 08/02/20 23:00 117 31 153/61 (91) 97 08/02/20 22:49 105 30 151/65 99 08/02/20 22:45 112 27 150/52 (84) 99 08/02/20 22:30 108 22 140/54 (82) 99 08/02/20 22:29 98.0 08/02/20 22:19 105 30 151/65 99 08/02/20 22:00 101 26 143/71 (95) 99 08/02/20 21:00 98 26 122/57 (78) 99 08/02/20 20:00 98.0 98 26 140/55 (83) 08/02/20 20:00 98 08/02/20 20:00 Mechanical Ventilator Mechanical Ventilator 08/02/20 20:00 50 08/02/20 19:00 108 32 50 08/02/20 19:00 98 27 97 08/02/20 18:00 97 26 131/49 (76) 98 08/02/20 17:00 97 27 121/52 (75) 97 08/02/20 16:36 98 30 50 08/02/20 16:00 Mechanical Ventilator 08/02/20 16:00 107 08/02/20 16:00 98.2 108 30 115/52 (73) 95 08/02/20 15:00 115 26 117/52 (73) 96 08/02/20 14:33 120 21 134/40 96 08/02/20 14:22 50 08/02/20 14:22 97 28 50 08/02/20 14:03 120 29 143/58 96 08/02/20 14:00 124 30 143/58 (86) 97 Intake and Output 08/02/20 08/03/20 19:00 07:00 Intake Total 1308.500 ml 1400.000 ml Output Total 1005 ml 1450 ml Balance 303.500 ml -50.000 ml Free Water 20 ml 150 ml IV Total 773.500 ml 470.000 ml Tube Feeding 515 ml 660 ml Other 120 ml Output Urine Total 1005 ml 1450 ml Chest Tube Drainage Total 0 ml 0 ml Current Medications Medications (Trade) Dose Ordered Sig/Zelda Route PRN Reason Start Time Stop Time Status Last Admin Dose Admin Acetaminophen (Tylenol) 650 mg Q4H PRN NG Temp >100.5 07/27/20 03:45 08/26/20 03:44 07/29/20 20:24 Acetaminophen/ Hydrocodone Bitart ([place] 5/325) 1 tab Q4H PRN ORAL Moderate Pain (Pain Scale 4-6) 08/02/20 10:45 08/09/20 10:44 08/03/20 05:24 Calcitonin [place] (Miacalcin) 1 sprays DAILY NASAL 07/22/20 14:00 10/20/20 13:59 08/03/20 10:20 Dextrose (Dextrose 50%) 25 ml Q30M PRN IV Hypoglycemia 06/05/20 10:45 09/03/20 10:44 Dextrose (Dextrose 50%) 50 ml Q30M PRN IV Hypoglycemia 06/05/20 10:45 09/03/20 10:44 Docusate Sodium (Colace) 100 mg EVERY 12 HOURS GT 08/01/20 21:00 08/25/20 17:59 08/03/20 09:34 Enoxaparin Sodium (Lovenox) 110 mg EVERY 12 HOURS SUBQ 07/17/20 21:00 10/15/20 20:59 08/03/20 09:40 Furosemide (Lasix) 40 mg EVERY 12 HOURS IV 08/01/20 11:00 08/31/20 10:59 08/03/20 09:37 Guaifenesin/ Codeine Phosphate (Robitussin with codeine) 5 ml Q6H PRN NG For Cough 07/14/20 14:15 08/13/20 14:14 07/18/20 21:44 Heparin Sodium/ Sodium Chloride (Heparin 1000 units/500ml Premix) 1,000 unit ONCE PRN IV PICC LINE PLACEMENT 08/02/20 10:45 08/04/20 10:44 Hydromorphone HCl (Dilaudid) 2 mg Q4H PRN IVP Severe Pain (Pain Scale 7-10) 08/02/20 13:45 08/09/20 10:44 08/03/20 00:39 Lansoprazole (Prevacid) 30 mg DAILY GT 07/18/20 09:00 08/09/20 08:59 08/03/20 09:34 Levofloxacin (Levaquin) 750 mg DAILY ORAL 08/03/20 12:00 08/10/20 11:59 08/03/20 12:59 Lidocaine HCl (Xylocaine 1% 30ml) 30 ml ONCE PRN INJ PICC LINE PLACEMENT 08/02/20 10:45 08/04/20 10:44 Lorazepam (Ativan 2mg/ml 1ml) 1 mg Q4H PRN IV For Anxiety 08/02/20 13:45 08/09/20 13:44 08/02/20 22:19 Meropenem 1 gm/ Sodium Chloride 55 ml @ 110 mls/hr Q8H IVPB 07/22/20 12:00 08/06/20 23:59 08/03/20 13:00 Metoclopramide HCl (Reglan) 10 mg Q6H IVP 08/01/20 18:00 08/31/20 17:59 08/03/20 12:59 Midodrine (Pro-Amatine) 10 mg Q8HR GT 06/30/20 14:00 09/12/20 13:59 08/03/20 12:59 Ondansetron HCl (Zofran) 4 mg Q6H PRN IVP Nausea & Vomiting 08/02/20 10:00 09/01/20 09:59 Polyethylene Glycol (Miralax) 17 gm BEDTIME ORAL 07/26/20 21:00 08/25/20 20:59 08/02/20 21:45 Quetiapine Fumarate (SEROqueL) 75 mg Q8HR GT 08/02/20 14:00 08/30/20 13:59 08/03/20 05:24 Laboratory Tests 08/03/20 03:10: White Blood Count 7.3, Red Blood Count 2.78L, Hemoglobin 8.0L, Hematocrit 26.7L, Mean Corpuscular Volume 96, Mean Corpuscular Hemoglobin 28.7, Mean Corpuscular Hemoglobin Concent 29.9L, Red Cell Distribution Width 19.0H, Platelet Count 218, Mean Platelet Volume 7.4, Neutrophils (%) (Auto) 57.3, Lymphocytes (%) (Auto) 21.9, Monocytes (%) (Auto) 11.9H, Eosinophils (%) (Auto) 7.5H, Basophils (%) (Auto) 1.4, Sodium Level 144, Potassium Level 4.1, Chloride Level 99, Carbon Dioxide Level 45*H, Anion Gap 1L, Blood Urea Nitrogen 19H, Creatinine 1.3, Estimat Glomerular Filtration Rate 43.6, Glucose Level 104, Calcium Level 8.2L, Magnesium Level 2.1, Total Bilirubin 0.6, Aspartate Amino Transf (AST/SGOT) 26, Alanine Aminotransferase (ALT/SGPT) 17, Alkaline Phosphatase 65, Total Protein 6.3L, Albumin 2.3L, Globulin 4.0, Albumin/Globulin Ratio 0.6L 08/03/20 13:17: POC Whole Blood Glucose 121H Height (Feet): 5 Height (Inches): 5.00 Weight (Pounds): 223 General Appearance: no apparent distress EENT: other - Trach to vent Cardiovascular: tachycardia Respiratory/Chest: decreased breath sounds Abdomen: distended Rigo Tyler MD Aug 03, 2020 13:53
[2020-08-03] MEDS ORDERED: NS 275ml ONE (15:15)
[2020-08-03] MEDS ORDERED: D5NS 1000ml IV ONE (15:15)
[2020-08-03] MEDS ORDERED: Sterile Water Irrig 1000ml IRRIG ONE (15:15)
[2020-08-03] MEDS ORDERED: Tubing IV Secondary IV ONE (15:15)
--- NOTE | 2020-08-03 15:35 | Cardiac Electrophysiology PN ---
Assessment/Plan Assessment/Plan 1. Respiratory failure due to COVID-19 pneumonia. On tracheostomy on 50 % Fio2. Trach exchanged 07/22/[address] Devine Echo EF 60% 2. S/P Code x2 with hypotension and sammy arrest on 07/22/20 likely due to Pneumothorax. HR stable 3. Right Pneumothorax, S/P chest tube placement. Removed 07/29/20 Thoravent palced 07/30/20 to water seal 4. Hypotension, on midodrine 10 mg 3 times daily and off pressors 5. Dysphagia. S/P PEG 07/24/20 6. Right lower extremity DVT. Follow up by Hematology. 7. Severe anemia, S/P PRBC DW RN Subjective Subjective Coded twice for hypotension and bradycardia while on the Vent about 20 minutes after tracheostomy was changed 07/22/20 Found to have Right Pneumothorax and underwent Right chest tube placement by Dr. Devine S/P PRBC. S/P PEG 07/24/20. Chest tube removed 07/29/20 Thora vent placed by Dr Devine 07/30/20 to water seal In ICU on the Vent on 50 % Fio2 and PEEP 5 In SR. Off pressors On Lasix 40 iv bid Objective Last 24 Hour Vital Signs Date Time Temp Pulse Resp B/P (MAP) Pulse Ox O2 Delivery O2 Flow Rate FiO2 08/03/20 15:00 100 23 149/62 (91) 100 08/03/20 14:00 98 27 143/57 (85) 98 08/03/20 13:00 101 34 128/68 (88) 98 08/03/20 12:10 50 08/03/20 12:01 99.5 105 36 140/57 (84) 99 08/03/20 12:00 105 36 140/57 (84) 99 08/03/20 12:00 50 08/03/20 12:00 Mechanical Ventilator Mechanical Ventilator 08/03/20 12:00 108 08/03/20 11:20 102 32 35 35 08/03/20 11:00 105 37 138/51 (80) 99 08/03/20 10:00 99.0 104 39 143/55 (84) 98 08/03/20 09:00 105 31 137/82 (100) 97 08/03/20 08:00 105 31 102/63 (76) 92 08/03/20 08:00 50 08/03/20 08:00 Mechanical Ventilator Mechanical Ventilator 08/03/20 08:00 105 08/03/20 07:02 99 29 50 08/03/20 07:00 107 29 99/49 (66) 99 08/03/20 06:00 105 27 96/45 (62) 100 08/03/20 05:54 98.0 08/03/20 05:00 95 22 125/58 (80) 100 08/03/20 04:00 98.2 104 25 111/56 (74) 100 08/03/20 04:00 50 08/03/20 04:00 Mechanical Ventilator Mechanical Ventilator 08/03/20 04:00 98 08/03/20 03:28 103 35 50 08/03/20 03:00 100 26 117/53 (74) 100 08/03/20 02:00 102 25 119/50 (73) 100 08/03/20 01:09 98.0 08/03/20 01:00 105 22 155/53 (87) 100 08/03/20 00:00 50 08/03/20 00:00 Mechanical Ventilator Mechanical Ventilator 08/03/20 00:00 106 08/03/20 00:00 98.4 113 34 152/61 (91) 96 08/02/20 23:01 104 33 50 08/02/20 23:00 117 31 153/61 (91) 97 08/02/20 22:49 105 30 151/65 99 08/02/20 22:45 112 27 150/52 (84) 99 08/02/20 22:30 108 22 140/54 (82) 99 08/02/20 22:29 98.0 08/02/20 22:19 105 30 151/65 99 08/02/20 22:00 101 26 143/71 (95) 99 08/02/20 21:00 98 26 122/57 (78) 99 08/02/20 20:00 98.0 98 26 140/55 (83) 08/02/20 20:00 98 08/02/20 20:00 Mechanical Ventilator Mechanical Ventilator 08/02/20 20:00 50 08/02/20 19:00 108 32 50 08/02/20 19:00 98 27 97 08/02/20 18:00 97 26 131/49 (76) 98 08/02/20 17:00 97 27 121/52 (75) 97 08/02/20 16:36 98 30 50 08/02/20 16:00 Mechanical Ventilator 08/02/20 16:00 107 08/02/20 16:00 98.2 108 30 115/52 (73) 95 Intake and Output 08/02/20 08/03/20 19:00 07:00 Intake Total 1308.500 ml 1400.000 ml Output Total 1005 ml 1450 ml Balance 303.500 ml -50.000 ml Free Water 20 ml 150 ml IV Total 773.500 ml 470.000 ml Tube Feeding 515 ml 660 ml Other 120 ml Output Urine Total 1005 ml 1450 ml Chest Tube Drainage Total 0 ml 0 ml Laboratory Tests Test 08/03/20 03:10 08/03/20 13:17 White Blood Count 7.3 K/UL (4.8-10.8) Red Blood Count 2.78 M/UL (4.20-5.40) L Hemoglobin 8.0 G/DL (12.0-16.0) L Hematocrit 26.7 % (37.0-47.0) L Mean Corpuscular Volume 96 FL (80-99) Mean Corpuscular Hemoglobin 28.7 PG (27.0-31.0) Mean Corpuscular Hemoglobin Concent 29.9 G/DL (32.0-36.0) L Red Cell Distribution Width 19.0 % (11.6-14.8) H Platelet Count 218 K/UL (150-450) Mean Platelet Volume 7.4 FL (6.5-10.1) Neutrophils (%) (Auto) 57.3 % (45.0-75.0) Lymphocytes (%) (Auto) 21.9 % (20.0-45.0) Monocytes (%) (Auto) 11.9 % (1.0-10.0) H Eosinophils (%) (Auto) 7.5 % (0.0-3.0) H Basophils (%) (Auto) 1.4 % (0.0-2.0) Sodium Level 144 MMOL/L (136-145) Potassium Level 4.1 MMOL/L (3.5-5.1) Chloride Level 99 MMOL/L (98-107) Carbon Dioxide Level 45 MMOL/L (21-32) *H Anion Gap 1 mmol/L (5-15) L Blood Urea Nitrogen 19 mg/dL (7-18) H Creatinine 1.3 MG/DL (0.55-1.30) Estimat Glomerular Filtration Rate 43.6 mL/min (>60) Glucose Level 104 MG/DL (74-106) Calcium Level 8.2 MG/DL (8.5-10.1) L Magnesium Level 2.1 MG/DL (1.8-2.4) Total Bilirubin 0.6 MG/DL (0.2-1.0) Aspartate Amino Transf (AST/SGOT) 26 U/L (15-37) Alanine Aminotransferase (ALT/SGPT) 17 U/L (12-78) Alkaline Phosphatase 65 U/L (46-116) Total Protein 6.3 G/DL (6.4-8.2) L Albumin 2.3 G/DL (3.4-5.0) L Globulin 4.0 g/dL Albumin/Globulin Ratio 0.6 (1.0-2.7) L POC Whole Blood Glucose 121 MG/DL (74-106) H Microbiology Date/Time Source Procedure Growth Status 08/01/20 04:45 Blood Blood Culture - Preliminary Gram Negative Rashad Resulted Objective HEAD AND NECK: Status post tracheostomy LUNGS: Coarse rhonchi. Right ThoraVent in place CARDIOVASCULAR: Regular S1 and S2 with no gallop. ABDOMEN: Soft.S/P PEG EXTREMITIES: 1+ pitting edema. Hill Burger MD Aug 03, 2020 15:35
--- NOTE | 2020-08-03 16:40 | NUR ---
NURSE NOTES: new tube feeding bottle of Glucerna 1.2 changed and resumed at rate of 55ml/hr. infusing through G-tube and remains patent.
--- NOTE | 2020-08-03 17:25 | NUR ---
NURSE NOTES: Patient provided with a sponge bath and placed the patient cooling blanket. rectal probe adjusted and skin was assessed, secured with tape to the patient skin to prevent skin breakdown, tolerated being repositioned on both her sides with no coughing or fainting episodes. tube feeding remain at 55ml/hr with residuals of 10mls.
--- NOTE | 2020-08-03 19:18 | NUR ---
NURSE HAND-OFF REPORT: Latest Vital Signs: Temperature 99.3 , Pulse 101 , B/P 146 /62 , Respiratory Rate 33 , O2 SAT 100 , Mechanical Ventilator, O2 Flow Rate . Vital Sign Comment: EKG Rhythm: Sinus Tachycardia Rhythm change?: N Notified?: Babs Nava and Vamshi Garcia MD Response: Latest Meyers Fall Score: 50 Fall Risk: High Risk Safety Measures: Call light Within Reach, Bed Alarm Zone 3, Side Rails Side Rails x2, Bed position Low and Locked. Fall Precautions: Yellow Socks Yellow Gown Door Sign Patient Fall Education Report given to RAKEL Ferreira.
[2020-08-03] MEDS: Miralax 17gm pkt ORAL SCH (20:55)
[2020-08-04] VITALS (27 sets, daily range): BP systolic 103–156; BP diastolic 38–74
[2020-08-04] MEDS: Meropenem 1 GM in NS 55 ML IVPB SCH ×3 (04:00→21:02)
[2020-08-04] MEDS: Midodrine 10mg tab GT SCH ×3 (06:00→21:00)
[2020-08-04 06:02] LABS: EOSINOPHILS % (AUTO) 10.2 % (0.0-3.0); HEMATOCRIT 29.8 % (37.0-47.0); HEMOGLOBIN 8.9 G/DL (12.0-16.0); LYMPHOCYTES % (AUTO) 22.3 % (20.0-45.0); MEAN CORPUSCULAR VOLUME 95 FL (80-99); MONOCYTES % (AUTO) 10.1 % (1.0-10.0); NEUTROPHILS % (AUTO) 56.3 % (45.0-75.0); PLATELET COUNT 260 K/UL (150-450); RED BLOOD COUNT 3.14 M/UL (4.20-5.40); RED CELL DISTRIBUTION WIDTH 18.2 % (11.6-14.8); WHITE BLOOD COUNT 7.9 K/UL (4.8-10.8)
[2020-08-04 06:24] LABS: ALANINE AMINOTRANSFERASE 19 U/L (12-78); ALBUMIN 2.6 G/DL (3.4-5.0); ALBUMIN/GLOBULIN RATIO 0.6 (1.0-2.7); ALKALINE PHOSPHATASE 70 U/L (46-116); ASPARTATE AMINO TRANSFERASE 25 U/L (15-37); BILIRUBIN,TOTAL 0.7 MG/DL (0.2-1.0); BLOOD UREA NITROGEN 24 mg/dL (7-18); CALCIUM 9.1 MG/DL (8.5-10.1); CHLORIDE 96 MMOL/L (98-107); CREATININE 1.1 MG/DL (0.55-1.30); PHOSPHORUS 3.6 MG/DL (2.5-4.9); POTASSIUM 3.5 MMOL/L (3.5-5.1); SODIUM 145 MMOL/L (136-145)
[2020-08-04 06:29] LABS: CARBON DIOXIDE > 45 MMOL/L (21-32)
[2020-08-04] MEDS: Metoclopramide 10mg/2ml Inj IVP SCH ×4 (06:47→18:08)
--- NOTE | 2020-08-04 07:27 | NUR ---
NURSE NOTES: Received report from Hanna ELLINGTON.
[2020-08-04] MEDS: Acetaminophen 650mg/20.3ml NG PRN (08:41)
[2020-08-04] MEDS: Levofloxacin 750mg tab ORAL SCH (08:42)
[2020-08-04] MEDS: Docusate 100mg/10ml Liq GT SCH ×2 (08:42→21:03)
[2020-08-04] MEDS: Enoxaparin 100mg Inj SUBQ SCH ×2 (08:43→21:06)
--- NOTE | 2020-08-04 09:36 | NUR ---
NURSE NOTES: Pt. in bed, awake. No s/sx of distress. Mech vent. dependent with setting AC15/VT400/Fi O2 of 50%/P5. No grimacing noted. HOB elevated at all times. On GTF Glucerna 1.2 at 55cc/hr. No n/v noted. F/C in placed patent/intact draining yellow colored urine. Chest tube in right upper chest in placed patent/intact with no output since last shift. Bed in low position, locked. Call light within reach. Will cont. to monitor.
--- NOTE | 2020-08-04 09:44 | Hematology/Onc Progress Note ---
Assessment/Plan Assessment/Plan # Deep vein thrombosis of the right calf --> given onoing anemia and low plts --> consider ivc if bleeding--once stable, needs it placed --> once stable, for radiology and ivc filter placement --> on lovenox bid now # Thrombocytopenia is due to infection/underlying covid19+++ --> ABX ceftriaxone -->zosyn-->off-->meropenem/vanc --> on steriods likely cause of initial wbc --> per pulm --> plt 107->156-->192-->205 --> smear reviewed # Leukocytosis due to Pneumonia due to COVID-19 virus --> per pulm rx -> sp remdesivir --> ABX vanc/meropenem --> wbc 11.9-->11-->21-->8.8-->11.7-->13-->24-->9 # Anemia due to chronic disease --> hgb goal is >7 --> transfuse prn --> ferritin is >1000 --> hold off on iron --> 10-->9.8->9-->8-->8.2->>7.1-->7.9->7.5-->9.5-->8.5-->8.8->8.4->8.9 --> 1 unit prbc / # Elevated ddimer due to covid19++ --> duplex legs is negative --> underlying covid rx # Hypoxia -> due to covid19 --> steriods as needed # Hypoxemia --> rx same as above # Respiratory failure --> on vent/trach --> per pulm # Diabetes mellitus out of control --> hgb a1c goal <7 # Dysphagia --> s/p peg # Poor prognosis # Dvt ppx ivc filter once more stable --> dvt ppx now lovenox sq Appreciate consultation and bowen RN Subjective Constitutional: Denies: no symptoms, chills, fever, malaise, weakness, other Respiratory: Denies: no symptoms, cough, shortness of breath, SOB with excertion, SOB at rest, sputum, wheezing, other Gastrointestinal/Abdominal: Denies: no symptoms, abdomen distended, abdominal pain, black stools, tarry stools, blood in stool, constipated, diarrhea, difficulty swallowing, nausea, poor appetite, poor fluid intake, rectal bleeding, vomiting, other Neurologic/Psychiatric: Denies: no symptoms, anxiety, depressed, emotional problems, headache, numbness, paresthesia, pre-existing deficit, seizure, tingling, tremors, weakness, other Allergies: Coded Allergies: No Known Allergies (Unverified , 05/28/20) Subjective 06/10 nv, on vent, with ogt, on fentanyl and versed, plt stable 06/11 nv, vent adjusted is on ogt, meds reviewed 06/12 nv, vent, meds noted, labs noted, no bleeding, hgb 10.4 06/13 nv, is on vent, meds reviewed, no bleeding, cbc reviewed 06/14 nv, on vent, tachy, labs reviewed, gross hematuria, febrile overnight, abx 06/17 nv, on vent, labs noted, no major changes, feeling better overnight 06/18 nv, meds reviewed, labs noted, no major events, hgb 8.6 06/19 nv, remains intubated, with fluids, labs reviewed, meds noted 06/20 nv, intubated remains on restraints, meds noted as well, as labs 06/21, remains on vent, on restraints, meds reviewed, labs noted 06/22: covering Dr. Del Cid no acute events 06/23 sedated, on vent, nv, intubated, meds reviewed, versed 06/24 nv, on vent, no night sweats, no bleeding, remains in icu 06/25 nv, on vent, icu, meds noted, no bleeding, comfortable 06/26 nv, on versed, icu, weaning parameters, labs noted 06/27 nv, overnight fighting vent, as per pulm fentanyl on board 06/28 nv, on vent, labs reviewed, as per pulm, meds noted 06/30 nv, icu, labs pending, is on fentanyl, versed, no new changes 07/01 nv, icu, is on vent, labs pending, no new changes per rn 07/02 nv, icu is on vent, labs noted, hgb is stable 07/03 nv, icu, is on vent, potential trrach when stable, cbc reviewed 07/04 icu, nv, labs are noted, stable for trach today bowen Rn Dl 07/05 icu, nv, on vent, with ng and picc in place, labs noted, s/p trach 07/07 icu, nv, on tv, no bleeding, labs noted, meds reviewed 07/08 icu, nv, on tv, labs reviewed, meds noted, no bleeding 07/09 icu, nv, meds noted, no bleeding, blood transfusion was completed 07/10 icu, nv, labs ntoed, no bleeding, hgb improved, hgb 7.8 07/11 icu, nv, labs reviewed, hgb is improved, for ivcf if stabilizes 07/12 icu, nv, labs reviewed, meds noted, no bleeding, remains on vent 07/13 icu, on vent, nv, no bleeding, labs reviewed, no major events, bowen rn 07/14 icu, on vent, nv, tolerating ngt feeds, bowen Rn, meds reviewed 07/15 icu, on vent, trach, tolerating ngt, meds noted, no bleeding 07/16 icu, vent, labs are noted, with trach, is stable, hgb 9.2 07/17 icu, had a bm overnight, remains on vent with trach, labs noted 07/18 icu, nv, labs are ntoed, no bleeding, on trach, on levophed 07/20 nc, icu, meds noted, v/t, no bleeding, labs noted, on versed 07/21 nv, trach/vent, tube feeds on hold, labs reviewed, icu 07/22 nv, icu, bp remains high, on v/t, labs noted, no bleeding 07/23 nv, ct is in place, on v/t, meds reviewed, in icu, on LEVO 07/24 nv, ct with blood secretions, to get 1 unit prbc today, icu 07/25 icu, nv, trach/v, obtunded, sedated, no bleeding, bowen rn 07/26 icu, nv, v/t, with gt, remains obtunded, as well as sedated, labs noted 07/27: no events. 07/28: remains intubated on vent 07/29 agitated, tachypneic, tachycardic is on vent, labs reviewed, meds noted 07/30 vent setting adjusted, is afebrile, no bleeding, tachycardic, labs noted 07/31 icu, trach/vent, on fentanyl gtt, labs reviewed, no bleeding 08/01 icu, nv, on t/v, fentanyl, hgb 9.4, no hemolysis, meds noted 08/02 icu, nv, t/v, labs reviewed, meds noted, no bleeding, did have vomiting o/n 08/04 nv, is in icu, labs reviewed, meds noted, no bleeding, dw rn Objective Objective Current Medications Medications (Trade) Dose Ordered Sig/Zelda Route PRN Reason Start Time Stop Time Status Last Admin Dose Admin Acetaminophen (Tylenol) 650 mg Q4H PRN NG Temp >100.5 07/27/20 03:45 08/26/20 03:44 08/04/20 08:41 Acetaminophen/ Hydrocodone Bitart ([place] 5/325) 1 tab Q4H PRN ORAL Moderate Pain (Pain Scale 4-6) 08/02/20 10:45 08/09/20 10:44 08/03/20 05:24 Calcitonin [place] (Miacalcin) 1 sprays DAILY NASAL 07/22/20 14:00 10/20/20 13:59 08/04/20 08:43 Dextrose (Dextrose 50%) 25 ml Q30M PRN IV Hypoglycemia 06/05/20 10:45 09/03/20 10:44 Dextrose (Dextrose 50%) 50 ml Q30M PRN IV Hypoglycemia 06/05/20 10:45 09/03/20 10:44 Docusate Sodium (Colace) 100 mg EVERY 12 HOURS GT 08/01/20 21:00 08/25/20 17:59 08/04/20 08:42 Enoxaparin Sodium (Lovenox) 100 mg EVERY 12 HOURS SUBQ 08/04/20 09:00 10/15/20 20:59 08/04/20 08:43 Furosemide (Lasix) 40 mg EVERY 12 HOURS IV 08/01/20 11:00 08/31/20 10:59 08/04/20 08:41 Guaifenesin/ Codeine Phosphate (Robitussin with codeine) 5 ml Q6H PRN NG For Cough 07/14/20 14:15 08/13/20 14:14 07/18/20 21:44 Heparin Sodium/ Sodium Chloride (Heparin 1000 units/500ml Premix) 1,000 unit ONCE PRN IV PICC LINE PLACEMENT 08/02/20 10:45 08/04/20 10:44 Hydromorphone HCl (Dilaudid) 2 mg Q4H PRN IVP Severe Pain (Pain Scale 7-10) 08/02/20 13:45 08/09/20 10:44 08/03/20 14:14 Lansoprazole (Prevacid) 30 mg DAILY GT 07/18/20 09:00 08/09/20 08:59 08/04/20 08:42 Levofloxacin (Levaquin) 750 mg DAILY ORAL 08/03/20 12:00 08/10/20 11:59 08/04/20 08:42 Lidocaine HCl (Xylocaine 1% 30ml) 30 ml ONCE PRN INJ PICC LINE PLACEMENT 08/02/20 10:45 08/04/20 10:44 Lorazepam (Ativan 2mg/ml 1ml) 1 mg Q4H PRN IV For Anxiety 08/02/20 13:45 08/09/20 13:44 08/02/20 22:19 Meropenem 1 gm/ Sodium Chloride 55 ml @ 110 mls/hr Q8H IVPB 07/22/20 12:00 08/06/20 23:59 08/04/20 04:00 Metoclopramide HCl (Reglan) 10 mg Q6H IVP 08/01/20 18:00 08/31/20 17:59 08/04/20 06:47 Midodrine (Pro-Amatine) 10 mg Q8HR GT 06/30/20 14:00 09/12/20 13:59 08/03/20 21:00 Ondansetron HCl (Zofran) 4 mg Q6H PRN IVP Nausea & Vomiting 08/02/20 10:00 09/01/20 09:59 Polyethylene Glycol (Miralax) 17 gm BEDTIME ORAL 07/26/20 21:00 08/25/20 20:59 08/03/20 20:55 Quetiapine Fumarate (SEROqueL) 75 mg Q8HR GT 08/02/20 14:00 08/30/20 13:59 08/04/20 06:46 Last 24 Hour Vital Signs Date Time Temp Pulse Resp B/P (MAP) Pulse Ox O2 Delivery O2 Flow Rate FiO2 08/04/20 09:11 99.1 08/04/20 07:00 107 28 131/58 (82) 100 08/04/20 06:00 107 36 122/60 (80) 100 08/04/20 05:00 105 21 108/41 (63) 100 08/04/20 04:30 113 32 150/61 (90) 98 08/04/20 04:00 Mechanical Ventilator Mechanical Ventilator 08/04/20 04:00 108 08/04/20 04:00 50 08/04/20 04:00 108 30 125/49 (74) 100 08/04/20 03:15 109 34 50 08/04/20 03:00 107 29 118/49 (72) 100 08/04/20 02:00 138/74 (95) 08/04/20 01:30 105 18 149/38 (75) 100 08/04/20 01:00 105 35 141/62 (88) 98 08/04/20 00:00 105 39 156/49 (84) 98 08/04/20 00:00 105 08/04/20 00:00 50 08/04/20 00:00 Mechanical Ventilator Mechanical Ventilator 08/03/20 23:30 112 37 165/27 (73) 96 08/03/20 23:10 119 35 50 08/03/20 23:00 114 35 164/66 (98) 98 08/03/20 22:30 108 32 149/62 (91) 98 08/03/20 22:00 105 37 166/62 (96) 99 08/03/20 21:30 105 34 161/52 (88) 99 08/03/20 21:00 104 34 170/48 (88) 98 08/03/20 20:30 107 31 159/57 (91) 100 08/03/20 20:00 106 35 165/107 (126) 98 08/03/20 20:00 Mechanical Ventilator Mechanical Ventilator 08/03/20 19:05 105 27 50 08/03/20 19:00 101 33 146/62 (90) 100 08/03/20 18:00 102 28 149/46 (80) 98 08/03/20 17:00 107 23 147/55 (85) 97 08/03/20 16:00 104 08/03/20 16:00 99.3 105 25 145/56 (85) 100 08/03/20 16:00 50 08/03/20 16:00 Mechanical Ventilator Mechanical Ventilator 08/03/20 15:24 114 33 50 08/03/20 15:00 100 23 149/62 (91) 100 08/03/20 14:00 98 27 143/57 (85) 98 08/03/20 13:00 101 34 128/68 (88) 98 08/03/20 12:10 50 08/03/20 12:01 99.5 105 36 140/57 (84) 99 08/03/20 12:00 105 36 140/57 (84) 99 08/03/20 12:00 50 08/03/20 12:00 Mechanical Ventilator Mechanical Ventilator 08/03/20 12:00 108 08/03/20 11:20 102 32 35 35 08/03/20 11:00 105 37 138/51 (80) 99 08/03/20 10:00 99.0 104 39 143/55 (84) 98 08/03/20 09:00 105 31 137/82 (100) 97 08/03/20 08:00 105 31 102/63 (76) 92 08/03/20 08:00 50 08/03/20 08:00 Mechanical Ventilator Mechanical Ventilator 08/03/20 08:00 105 08/03/20 07:02 99 29 50 08/03/20 07:00 107 29 99/49 (66) 99 08/03/20 06:00 105 27 96/45 (62) 100 08/03/20 05:54 98.0 08/03/20 05:00 95 22 125/58 (80) 100 08/03/20 04:00 98.2 104 25 111/56 (74) 100 08/03/20 04:00 50 08/03/20 04:00 Mechanical Ventilator Mechanical Ventilator 08/03/20 04:00 98 08/03/20 03:28 103 35 50 08/03/20 03:00 100 26 117/53 (74) 100 08/03/20 02:00 102 25 119/50 (73) 100 08/03/20 01:09 98.0 08/03/20 01:00 105 22 155/53 (87) 100 08/03/20 00:00 50 08/03/20 00:00 Mechanical Ventilator Mechanical Ventilator 08/03/20 00:00 106 08/03/20 00:00 98.4 113 34 152/61 (91) 96 08/02/20 23:01 104 33 50 08/02/20 23:00 117 31 153/61 (91) 97 08/02/20 22:49 105 30 151/65 99 08/02/20 22:45 112 27 150/52 (84) 99 08/02/20 22:30 108 22 140/54 (82) 99 08/02/20 22:29 98.0 08/02/20 22:19 105 30 151/65 99 08/02/20 22:00 101 26 143/71 (95) 99 08/02/20 21:00 98 26 122/57 (78) 99 08/02/20 20:00 98.0 98 26 140/55 (83) 08/02/20 20:00 98 08/02/20 20:00 Mechanical Ventilator Mechanical Ventilator 08/02/20 20:00 50 08/02/20 19:00 108 32 50 08/02/20 19:00 98 27 97 08/02/20 18:00 97 26 131/49 (76) 98 08/02/20 17:00 97 27 121/52 (75) 97 08/02/20 16:36 98 30 50 08/02/20 16:00 Mechanical Ventilator 08/02/20 16:00 107 08/02/20 16:00 98.2 108 30 115/52 (73) 95 08/02/20 15:00 115 26 117/52 (73) 96 08/02/20 14:33 120 21 134/40 96 08/02/20 14:22 50 08/02/20 14:22 97 28 50 08/02/20 14:03 120 29 143/58 96 08/02/20 14:00 124 30 143/58 (86) 97 08/02/20 13:35 122 30 45 08/02/20 13:35 45 08/02/20 13:00 127 33 162/62 (95) 95 08/02/20 12:00 98.5 124 28 117/75 (89) 96 08/02/20 12:00 105 08/02/20 12:00 Mechanical Ventilator 08/02/20 12:00 40 08/02/20 12:00 28 117/75 Mechanical Ventilator 40 08/02/20 11:30 123 39 154/98 (116) 96 08/02/20 11:30 32 154/98 Mechanical Ventilator 45 08/02/20 11:21 128 31 40 08/02/20 11:00 123 35 141/99 (113) 98 08/02/20 11:00 35 141/99 Mechanical Ventilator 45 08/02/20 10:30 123 32 196/93 (127) 96 08/02/20 10:00 122 31 150/88 (108) 96 08/02/20 10:00 31 150/88 Mechanical Ventilator 45 08/02/20 09:46 45 Intake and Output 08/03/20 08/04/20 19:00 07:00 Intake Total 875 ml 660 ml Output Total 1775 ml 2700 ml Balance -900 ml -2040 ml Free Water 110 ml IV Total 55 ml Tube Feeding 660 ml 660 ml Other 50 ml Output Urine Total 1775 ml 2700 ml Chest Tube Drainage Total 0 ml 0 ml Labs Test 08/01/20 12:40 08/01/20 17:36 08/02/20 03:50 08/03/20 03:10 POC Whole Blood Glucose 125 MG/DL (74-106) 120 MG/DL (74-106) Sodium Level 142 MMOL/L (136-145) 144 MMOL/L (136-145) Potassium Level 4.8 MMOL/L (3.5-5.1) 4.1 MMOL/L (3.5-5.1) Chloride Level 99 MMOL/L (98-107) 99 MMOL/L (98-107) Carbon Dioxide Level 39 MMOL/L (21-32) 45 MMOL/L (21-32) Anion Gap 4 mmol/L (5-15) 1 mmol/L (5-15) Blood Urea Nitrogen 11 mg/dL (7-18) 19 mg/dL (7-18) Creatinine 1.1 MG/DL (0.55-1.30) 1.3 MG/DL (0.55-1.30) Estimat Glomerular Filtration Rate 52.8 mL/min (>60) 43.6 mL/min (>60) Glucose Level 119 MG/DL (74-106) 104 MG/DL (74-106) Uric Acid 4.5 MG/DL (2.6-7.2) Calcium Level 7.8 MG/DL (8.5-10.1) 8.2 MG/DL (8.5-10.1) Phosphorus Level 3.1 MG/DL (2.5-4.9) Magnesium Level 1.6 MG/DL (1.8-2.4) 2.1 MG/DL (1.8-2.4) Total Bilirubin 0.5 MG/DL (0.2-1.0) 0.6 MG/DL (0.2-1.0) Aspartate Amino Transf (AST/SGOT) 30 U/L (15-37) 26 U/L (15-37) Alanine Aminotransferase (ALT/SGPT) 18 U/L (12-78) 17 U/L (12-78) Alkaline Phosphatase 70 U/L (46-116) 65 U/L (46-116) C-Reactive Protein, Quantitative 4.9 mg/dL (0.00-0.90) Pro-B-Type Natriuretic Peptide 2896 pg/mL (0-125) Total Protein 6.3 G/DL (6.4-8.2) 6.3 G/DL (6.4-8.2) Albumin 2.3 G/DL (3.4-5.0) 2.3 G/DL (3.4-5.0) Globulin 4.0 g/dL 4.0 g/dL Albumin/Globulin Ratio 0.6 (1.0-2.7) 0.6 (1.0-2.7) Vancomycin Level Trough 17.2 ug/mL (5.0-12.0) White Blood Count 7.3 K/UL (4.8-10.8) Red Blood Count 2.78 M/UL (4.20-5.40) Hemoglobin 8.0 G/DL (12.0-16.0) Hematocrit 26.7 % (37.0-47.0) Mean Corpuscular Volume 96 FL (80-99) Mean Corpuscular Hemoglobin 28.7 PG (27.0-31.0) Mean Corpuscular Hemoglobin Concent 29.9 G/DL (32.0-36.0) Red Cell Distribution Width 19.0 % (11.6-14.8) Platelet Count 218 K/UL (150-450) Mean Platelet Volume 7.4 FL (6.5-10.1) Neutrophils (%) (Auto) 57.3 % (45.0-75.0) Lymphocytes (%) (Auto) 21.9 % (20.0-45.0) Monocytes (%) (Auto) 11.9 % (1.0-10.0) Eosinophils (%) (Auto) 7.5 % (0.0-3.0) Basophils (%) (Auto) 1.4 % (0.0-2.0) Test 08/03/20 13:17 08/04/20 04:24 08/04/20 07:50 POC Whole Blood Glucose 121 MG/DL (74-106) White Blood Count 7.9 K/UL (4.8-10.8) Red Blood Count 3.14 M/UL (4.20-5.40) Hemoglobin 8.9 G/DL (12.0-16.0) Hematocrit 29.8 % (37.0-47.0) Mean Corpuscular Volume 95 FL (80-99) Mean Corpuscular Hemoglobin 28.5 PG (27.0-31.0) Mean Corpuscular Hemoglobin Concent 30.0 G/DL (32.0-36.0) Red Cell Distribution Width 18.2 % (11.6-14.8) Platelet Count 260 K/UL (150-450) Mean Platelet Volume 7.1 FL (6.5-10.1) Neutrophils (%) (Auto) 56.3 % (45.0-75.0) Lymphocytes (%) (Auto) 22.3 % (20.0-45.0) Monocytes (%) (Auto) 10.1 % (1.0-10.0) Eosinophils (%) (Auto) 10.2 % (0.0-3.0) Basophils (%) (Auto) 1.0 % (0.0-2.0) Sodium Level 145 MMOL/L (136-145) Potassium Level 3.5 MMOL/L (3.5-5.1) Chloride Level 96 MMOL/L (98-107) Carbon Dioxide Level > 45 MMOL/L (21-32) Blood Urea Nitrogen 24 mg/dL (7-18) Creatinine 1.1 MG/DL (0.55-1.30) Estimat Glomerular Filtration Rate 52.8 mL/min (>60) Glucose Level 120 MG/DL (74-106) Calcium Level 9.1 MG/DL (8.5-10.1) Phosphorus Level 3.6 MG/DL (2.5-4.9) Magnesium Level 1.7 MG/DL (1.8-2.4) Total Bilirubin 0.7 MG/DL (0.2-1.0) Aspartate Amino Transf (AST/SGOT) 25 U/L (15-37) Alanine Aminotransferase (ALT/SGPT) 19 U/L (12-78) Alkaline Phosphatase 70 U/L (46-116) Total Protein 6.8 G/DL (6.4-8.2) Albumin 2.6 G/DL (3.4-5.0) Globulin 4.2 g/dL Albumin/Globulin Ratio 0.6 (1.0-2.7) Arterial Blood pH 7.480 (7.350-7.450) Arterial Blood Partial Pressure CO2 70.4 mmHg (35.0-45.0) Arterial Blood Partial Pressure O2 79.4 mmHg (75.0-100.0) Arterial Blood HCO3 51.3 mmol/L (22.0-26.0) Arterial Blood Oxygen Saturation 95.4 % (95-100) Arterial Blood Base Excess 24.5 (-2-2) Jeremiah Test Positive Height (Feet): 5 Height (Inches): 5.00 Weight (Pounds): 223 Objective GeNL: nv HEENT: ngt++ Pulm: vent/trach++ CV: rrr Abd: soft, nt, nd ++gt Ext: no cce Myron Condon MD Aug 04, 2020 09:44
--- NOTE | 2020-08-04 09:53 | Pulmonology Progress Note ---
Subjective ROS Limited/Unobtainable: Yes Interval Events: Chest tube removed (07/29), Thoravent(07/30) Constitutional: Reports: fever, other - Tgtj=[id number] HEENT: Repors: no symptoms Respiratory: Reports: no symptoms Cardiovascular: Reports: no symptoms Gastrointestinal/Abdominal: Reports: vomiting Genitourinary: Reports: no symptoms Allergies: Coded Allergies: No Known Allergies (Unverified , 05/28/20) All Systems: reviewed and negative except above Objective Last 24 Hour Vital Signs Date Time Temp Pulse Resp B/P (MAP) Pulse Ox O2 Delivery O2 Flow Rate FiO2 08/04/20 09:11 99.1 08/04/20 07:00 107 28 131/58 (82) 100 08/04/20 06:00 107 36 122/60 (80) 100 08/04/20 05:00 105 21 108/41 (63) 100 08/04/20 04:30 113 32 150/61 (90) 98 08/04/20 04:00 Mechanical Ventilator Mechanical Ventilator 08/04/20 04:00 108 08/04/20 04:00 50 08/04/20 04:00 108 30 125/49 (74) 100 08/04/20 03:15 109 34 50 08/04/20 03:00 107 29 118/49 (72) 100 08/04/20 02:00 138/74 (95) 08/04/20 01:30 105 18 149/38 (75) 100 08/04/20 01:00 105 35 141/62 (88) 98 08/04/20 00:00 105 39 156/49 (84) 98 08/04/20 00:00 105 08/04/20 00:00 50 08/04/20 00:00 Mechanical Ventilator Mechanical Ventilator 08/03/20 23:30 112 37 165/27 (73) 96 08/03/20 23:10 119 35 50 08/03/20 23:00 114 35 164/66 (98) 98 08/03/20 22:30 108 32 149/62 (91) 98 08/03/20 22:00 105 37 166/62 (96) 99 08/03/20 21:30 105 34 161/52 (88) 99 08/03/20 21:00 104 34 170/48 (88) 98 08/03/20 20:30 107 31 159/57 (91) 100 08/03/20 20:00 106 35 165/107 (126) 98 08/03/20 20:00 Mechanical Ventilator Mechanical Ventilator 08/03/20 19:05 105 27 50 08/03/20 19:00 101 33 146/62 (90) 100 08/03/20 18:00 102 28 149/46 (80) 98 08/03/20 17:00 107 23 147/55 (85) 97 08/03/20 16:00 104 08/03/20 16:00 99.3 105 25 145/56 (85) 100 08/03/20 16:00 50 08/03/20 16:00 Mechanical Ventilator Mechanical Ventilator 08/03/20 15:24 114 33 50 08/03/20 15:00 100 23 149/62 (91) 100 08/03/20 14:00 98 27 143/57 (85) 98 08/03/20 13:00 101 34 128/68 (88) 98 08/03/20 12:10 50 08/03/20 12:01 99.5 105 36 140/57 (84) 99 08/03/20 12:00 105 36 140/57 (84) 99 08/03/20 12:00 50 08/03/20 12:00 Mechanical Ventilator Mechanical Ventilator 08/03/20 12:00 108 08/03/20 11:20 102 32 35 35 08/03/20 11:00 105 37 138/51 (80) 99 08/03/20 10:00 99.0 104 39 143/55 (84) 98 Intake and Output 08/03/20 08/04/20 19:00 07:00 Intake Total 875 ml 660 ml Output Total 1775 ml 2700 ml Balance -900 ml -2040 ml Free Water 110 ml IV Total 55 ml Tube Feeding 660 ml 660 ml Other 50 ml Output Urine Total 1775 ml 2700 ml Chest Tube Drainage Total 0 ml 0 ml General Appearance: no acute distress HEENT: normocephalic, status post trach Respiratory: chest wall non-tender Cardiovascular: normal peripheral pulses Abdomen: normal bowel sounds, other - s/p PEG Laboratory Tests 08/03/20 13:17: POC Whole Blood Glucose 121H 08/04/20 04:24: White Blood Count 7.9, Red Blood Count 3.14L, Hemoglobin 8.9L, Hematocrit 29.8L, Mean Corpuscular Volume 95, Mean Corpuscular Hemoglobin 28.5, Mean Corpuscular Hemoglobin Concent 30.0L, Red Cell Distribution Width 18.2H, Platelet Count 260, Mean Platelet Volume 7.1, Neutrophils (%) (Auto) 56.3, Lymphocytes (%) (Auto) 22.3, Monocytes (%) (Auto) 10.1H, Eosinophils (%) (Auto) 10.2H, Basophils (%) (Auto) 1.0, Sodium Level 145, Potassium Level 3.5, Chloride Level 96L, Carbon Dioxide Level > 45*H, Blood Urea Nitrogen 24H, Creatinine 1.1, Estimat Glomerular Filtration Rate 52.8, Glucose Level 120H, Calcium Level 9.1, Phosphorus Level 3.6, Magnesium Level 1.7L, Total Bilirubin 0.7, Aspartate Amino Transf (AST/SGOT) 25, Alanine Aminotransferase (ALT/SGPT) 19, Alkaline Phosphatase 70, Total Protein 6.8, Albumin 2.6L, Globulin 4.2, Albumin/Globulin Ratio 0.6L 08/04/20 07:50: Arterial Blood pH 7.480H, Arterial Blood Partial Pressure CO2 70.4*H, Arterial Blood Partial Pressure O2 79.4, Arterial Blood HCO3 51.3*H, Arterial Blood Oxygen Saturation 95.4, Arterial Blood Base Excess 24.5*H, Jeremiah Test Positive Current Medications Medications (Trade) Dose Ordered Sig/Zelda Route PRN Reason Start Time Stop Time Status Last Admin Dose Admin Acetaminophen (Tylenol) 650 mg Q4H PRN NG Temp >100.5 07/27/20 03:45 08/26/20 03:44 08/04/20 08:41 Acetaminophen/ Hydrocodone Bitart ([place] 5/325) 1 tab Q4H PRN ORAL Moderate Pain (Pain Scale 4-6) 08/02/20 10:45 08/09/20 10:44 08/03/20 05:24 Calcitonin Peel (Miacalcin) 1 sprays DAILY NASAL 07/22/20 14:00 10/20/20 13:59 08/04/20 08:43 Dextrose (Dextrose 50%) 25 ml Q30M PRN IV Hypoglycemia 06/05/20 10:45 09/03/20 10:44 Dextrose (Dextrose 50%) 50 ml Q30M PRN IV Hypoglycemia 06/05/20 10:45 09/03/20 10:44 Docusate Sodium (Colace) 100 mg EVERY 12 HOURS GT 08/01/20 21:00 08/25/20 17:59 08/04/20 08:42 Enoxaparin Sodium (Lovenox) 100 mg EVERY 12 HOURS SUBQ 08/04/20 09:00 10/15/20 20:59 08/04/20 08:43 Furosemide (Lasix) 40 mg EVERY 12 HOURS IV 08/01/20 11:00 08/31/20 10:59 08/04/20 08:41 Guaifenesin/ Codeine Phosphate (Robitussin with codeine) 5 ml Q6H PRN NG For Cough 07/14/20 14:15 08/13/20 14:14 07/18/20 21:44 Heparin Sodium/ Sodium Chloride (Heparin 1000 units/500ml Premix) 1,000 unit ONCE PRN IV PICC LINE PLACEMENT 08/02/20 10:45 08/04/20 10:44 Hydromorphone HCl (Dilaudid) 2 mg Q4H PRN IVP Severe Pain (Pain Scale 7-10) 08/02/20 13:45 08/09/20 10:44 08/03/20 14:14 Lansoprazole (Prevacid) 30 mg DAILY GT 07/18/20 09:00 08/09/20 08:59 08/04/20 08:42 Levofloxacin (Levaquin) 750 mg DAILY ORAL 08/03/20 12:00 08/10/20 11:59 08/04/20 08:42 Lidocaine HCl (Xylocaine 1% 30ml) 30 ml ONCE PRN INJ PICC LINE PLACEMENT 08/02/20 10:45 08/04/20 10:44 Lorazepam (Ativan 2mg/ml 1ml) 1 mg Q4H PRN IV For Anxiety 08/02/20 13:45 08/09/20 13:44 08/02/20 22:19 Meropenem 1 gm/ Sodium Chloride 55 ml @ 110 mls/hr Q8H IVPB 07/22/20 12:00 08/06/20 23:59 08/04/20 04:00 Metoclopramide HCl (Reglan) 10 mg Q6H IVP 08/01/20 18:00 08/31/20 17:59 08/04/20 06:47 Midodrine (Pro-Amatine) 10 mg Q8HR GT 06/30/20 14:00 09/12/20 13:59 08/03/20 21:00 Ondansetron HCl (Zofran) 4 mg Q6H PRN IVP Nausea & Vomiting 08/02/20 10:00 09/01/20 09:59 Polyethylene Glycol (Miralax) 17 gm BEDTIME ORAL 07/26/20 21:00 08/25/20 20:59 08/03/20 20:55 Quetiapine Fumarate (SEROqueL) 75 mg Q8HR GT 08/02/20 14:00 08/30/20 13:59 08/04/20 06:46 Assessment/Plan Assessment/Plan 1. COVID-19 pneumonia -Intubated 05/28/20 -s/p solumedrol, Rocephin -Continue PEEP 6 ->7 ->5 - Peak airway pressures better - FiO2 100% -> 90 ->80->60 ->40 ->80 ->100 ->70 ->60 -> 50 ->45 ->40 ->50 ->40-> 80 -> 70->50%; PEEP 7 ->5 - s/p PEG - Sputum Cx pseudo -> on meropenem per ID -> resistant to meropenem. Needs Abx change per ID 2. Hyponatremia -Per primary MD 3. Elevated inflammatory markers - has high D dimer; On Lovenox -> Lovenox held given anemia 4. DVT of the right calf - once stable, consider IVC filter per heme vs oral DOAC - was on Lovenox but held given anemia 5. Decreased PEEP S/p trach Reported cuff leak per RN/RT Changed 07/22/20 however still has cuff leak 6. Leukocytosis; now WBC wnl - ID following - BCx Serratia Marcescens - UCx neg - Sp Cx pseudomonas 7. Pulmonary edema - Will start Lasix 40 mg IV Q12h Now off Levophed Now off IV sedation; on Seroquel TID, added [place] and Dilaudid prn s/p PEG Required R CT due to PTX 07/22/20 - CT removed (07/29) ->however, f/u CXR shows PTX with tracheal deviation. CT reinserted (07/30) The care of this patient was discussed with my supervising physician Time spent for this encounter was approximately 31 minutes Vamshi Garcia Aug 04, 2020 09:53
--- NOTE | 2020-08-04 10:53 | NUR ---
NURSE NOTES: Seen by Dr. Devine and notified CN that he will not remove chest tube today. Will cont. to monitor.
--- NOTE | 2020-08-04 11:18 | NUR ---
NURSE NOTES: Seen by Dr. Tyler with new orders for Mg. 2gm. Noted and carried out.
--- NOTE | 2020-08-04 11:18 | Surgery Progress Note ---
Surgery Progress Note Subjective Procedure Performed right tube chest tube insertion Symptoms: improved, tolerating diet, passing flatus Objective Last 24 Hour Vital Signs Date Time Temp Pulse Resp B/P (MAP) Pulse Ox O2 Delivery O2 Flow Rate FiO2 08/04/20 10:00 113 30 111/60 (77) 100 08/04/20 09:11 99.1 08/04/20 09:00 105 27 138/56 (83) 100 08/04/20 08:00 100.1 109 29 135/65 (88) 100 08/04/20 08:00 50 08/04/20 08:00 Mechanical Ventilator Mechanical Ventilator 08/04/20 07:00 107 28 131/58 (82) 100 08/04/20 06:00 107 36 122/60 (80) 100 08/04/20 05:00 105 21 108/41 (63) 100 08/04/20 04:30 113 32 150/61 (90) 98 08/04/20 04:00 Mechanical Ventilator Mechanical Ventilator 08/04/20 04:00 108 08/04/20 04:00 50 08/04/20 04:00 108 30 125/49 (74) 100 08/04/20 03:15 109 34 50 08/04/20 03:00 107 29 118/49 (72) 100 08/04/20 02:00 138/74 (95) 08/04/20 01:30 105 18 149/38 (75) 100 08/04/20 01:00 105 35 141/62 (88) 98 08/04/20 00:00 105 39 156/49 (84) 98 08/04/20 00:00 105 08/04/20 00:00 50 08/04/20 00:00 Mechanical Ventilator Mechanical Ventilator 08/03/20 23:30 112 37 165/27 (73) 96 08/03/20 23:10 119 35 50 08/03/20 23:00 114 35 164/66 (98) 98 08/03/20 22:30 108 32 149/62 (91) 98 08/03/20 22:00 105 37 166/62 (96) 99 08/03/20 21:30 105 34 161/52 (88) 99 08/03/20 21:00 104 34 170/48 (88) 98 08/03/20 20:30 107 31 159/57 (91) 100 08/03/20 20:00 106 35 165/107 (126) 98 08/03/20 20:00 Mechanical Ventilator Mechanical Ventilator 08/03/20 19:05 105 27 50 08/03/20 19:00 101 33 146/62 (90) 100 08/03/20 18:00 102 28 149/46 (80) 98 08/03/20 17:00 107 23 147/55 (85) 97 08/03/20 16:00 104 08/03/20 16:00 99.3 105 25 145/56 (85) 100 08/03/20 16:00 50 08/03/20 16:00 Mechanical Ventilator Mechanical Ventilator 08/03/20 15:24 114 33 50 08/03/20 15:00 100 23 149/62 (91) 100 08/03/20 14:00 98 27 143/57 (85) 98 08/03/20 13:00 101 34 128/68 (88) 98 08/03/20 12:10 50 08/03/20 12:01 99.5 105 36 140/57 (84) 99 08/03/20 12:00 105 36 140/57 (84) 99 08/03/20 12:00 50 08/03/20 12:00 Mechanical Ventilator Mechanical Ventilator 08/03/20 12:00 108 08/03/20 11:20 102 32 35 35 I&O Intake and Output 08/03/20 08/04/20 19:00 07:00 Intake Total 875 ml 660 ml Output Total 1775 ml 2700 ml Balance -900 ml -2040 ml Free Water 110 ml IV Total 55 ml Tube Feeding 660 ml 660 ml Other 50 ml Output Urine Total 1775 ml 2700 ml Chest Tube Drainage Total 0 ml 0 ml Dressing: saturated Drains: other Cardiovascular: RSR Respiratory: decreased breath sounds Abdomen: soft, flat, non-tender, present bowel sounds, non-distended Extremities: no tenderness, no cyanosis Laboratory Tests Test 08/03/20 13:17 08/04/20 04:24 08/04/20 07:50 POC Whole Blood Glucose 121 MG/DL (74-106) H White Blood Count 7.9 K/UL (4.8-10.8) Red Blood Count 3.14 M/UL (4.20-5.40) L Hemoglobin 8.9 G/DL (12.0-16.0) L Hematocrit 29.8 % (37.0-47.0) L Mean Corpuscular Volume 95 FL (80-99) Mean Corpuscular Hemoglobin 28.5 PG (27.0-31.0) Mean Corpuscular Hemoglobin Concent 30.0 G/DL (32.0-36.0) L Red Cell Distribution Width 18.2 % (11.6-14.8) H Platelet Count 260 K/UL (150-450) Mean Platelet Volume 7.1 FL (6.5-10.1) Neutrophils (%) (Auto) 56.3 % (45.0-75.0) Lymphocytes (%) (Auto) 22.3 % (20.0-45.0) Monocytes (%) (Auto) 10.1 % (1.0-10.0) H Eosinophils (%) (Auto) 10.2 % (0.0-3.0) H Basophils (%) (Auto) 1.0 % (0.0-2.0) Sodium Level 145 MMOL/L (136-145) Potassium Level 3.5 MMOL/L (3.5-5.1) Chloride Level 96 MMOL/L (98-107) L Carbon Dioxide Level > 45 MMOL/L (21-32) *H Blood Urea Nitrogen 24 mg/dL (7-18) H Creatinine 1.1 MG/DL (0.55-1.30) Estimat Glomerular Filtration Rate 52.8 mL/min (>60) Glucose Level 120 MG/DL (74-106) H Calcium Level 9.1 MG/DL (8.5-10.1) Phosphorus Level 3.6 MG/DL (2.5-4.9) Magnesium Level 1.7 MG/DL (1.8-2.4) L Total Bilirubin 0.7 MG/DL (0.2-1.0) Aspartate Amino Transf (AST/SGOT) 25 U/L (15-37) Alanine Aminotransferase (ALT/SGPT) 19 U/L (12-78) Alkaline Phosphatase 70 U/L (46-116) Total Protein 6.8 G/DL (6.4-8.2) Albumin 2.6 G/DL (3.4-5.0) L Globulin 4.2 g/dL Albumin/Globulin Ratio 0.6 (1.0-2.7) L Arterial Blood pH 7.480 (7.350-7.450) Arterial Blood Partial Pressure CO2 70.4 mmHg (35.0-45.0) *H Arterial Blood Partial Pressure O2 79.4 mmHg (75.0-100.0) Arterial Blood HCO3 51.3 mmol/L (22.0-26.0) *H Arterial Blood Oxygen Saturation 95.4 % (95-100) Arterial Blood Base Excess 24.5 (-2-2) *H Jeremiah Test Positive Plan Problems: (1) Respiratory distress (2) Respiratory failure Assessment & Plan: 50-year-old female Covid positive respiratory insufficiency intubated on ventilatory support declining. Leukocytosis increase oxygen requirement. Vent settings per pulmonology reviewed identified and agree. Unfortunately further surgical invention at this time is not appropriate as bj martinez is not a candidate and her current condition. Prognosis overall guarded. Tracheostomy can be considered in the future if recovering or shows improvement and requires unable to be weaned from ventilator support. Currently okay for nutritional optimization with NG tube. Will need significant monitoring for decubitus formation given patient's size and condition. Okay for air mattress tolerated. Turn every 2 hours as tolerated. Patient is otherwise critically ill and blood pressure labile. Will need to monitor closely.Bilateral infiltrates are again demonstrated. Stable tube and line positions. will need trach will need to wean vent first no cuff leak trach okay Improving weaning well DC planning placement much improved peg placement trach changed acls now resuscitated (3) Hypoxia (4) Pneumonia due to COVID-19 virus Assessment & Plan: ++ as per pulm and ID (5) Diabetes mellitus out of control Assessment & Plan: DAILY ESTIMATED NEEDS: Needs based on Critical care, obesity 11-14kcal/kg actual body wt (140kg) kcals/kg 6371-4381 total kcals 1.5-2.0g prot/kg IBW (64.5kg) g protein/kg 96-129 g total protein 25-30ml/kg abw (83kg) mL/kg 7037-5061 total fluid mLs NUTRITION DIAGNOSIS: Swallowing difficulty R/T respiratory failure as evidenced by pt orally intubated and sedated, on OGT feeds. CURRENT TF: Vital 1.2 goal of 60ml/hr ENTERAL NUTRITION RECOMMENDATIONS: Vital AF 1.2 @ 60ml/hr x 24 hrs to provide 1440ml, 1728kcal, 108g prot, 1168ml free water * Maintain current critical care and carb controlled TF formula of Vital AF * TF @ goal meeds 100% est kcal/prot needs * HOB over 30 degrees/ water flush per MD TF may be lowered to 55ml/hr for improved BG control while maintaining Kcal and pro needs. ADDITIONAL RECOMMENDATIONS: * Calibrated bedscale wt * Monitor Propofol rate, need for TF adjustment-> now off * Monitor BGs closely : now improved, on novolog q 6rs + NISS * Monitor lytes- K elevated, monitor need for TF change * Rec bowel regimen- now w/ rectal tube . (6) Pneumothorax on right Assessment & Plan: right tension pneumothorax trach changed for cuff leak and decreased volumes pressures high after and ptx tension acls resuscitated right chest tube placed ptx resolved cont chest tube to suction am cxr wean vent Right chest tube, tracheostomy, nasogastric tube remain. Previously demonstrated subcutaneous emphysema has nearly completely cleared, with only questionably small residual in the left supraclavicular fossa. Extensive bilateral infiltrates persist. There is no pneumothorax currently. The heart is borderline enlarged. Pneumoperitoneum persists, may be slightly decreased Impression: Markedly improved subcutaneous emphysema Unchanged bilateral infiltrates Persistent but perhaps slightly decreased pneumoperitoneum chest tube removed 38 f/u cxr new chest tube 07/30 tolerating tube feeds no n/v weaning vent well cxr reviewed tube okay no large ptx stable cont chest tube to water seal (7) DEVENDRA (acute kidney injury) (8) Morbid obesity Az Devine Aug 04, 2020 11:18
--- NOTE | 2020-08-04 11:51 | Nephrology Progress Note ---
Assessment/Plan Problem List: (1) DEVENDRA (acute kidney injury) (2) Morbid obesity (3) Diabetes mellitus out of control (4) Pneumonia due to COVID-19 virus (5) Respiratory failure Assessment Acute renal failure Obstructive uropathy, clogged [place] Respiratory failure COVID-19 pneumonia Morbid obesity Plan August 04: Status unchanged. Labs reviewed. Low magnesium addressed. Patient full code. Continue per consultants. August 03: Status quo. Labs reviewed. Renal parameters stable. Patient full code. Continue per pulmonary. August 02: Continues to have chest tube. Full code. Trach and vent. PEG. Renal parameters stable. August 01: Status quo. Leukocytosis resolved. Renal parameters stable. Continues to be vented through trach. Has PEG. Continue per consultants. Patient is full code. July 31: Chest tube was right reinserted on the right side. Patient remains trached on vent. Leukocytosis worsened . Renal parameters unchanged. Continue per current treatment plan. July 30: Status quo. Labs reviewed. Medication list reviewed. Stable from renal standpoint of view. Patient is full code, trached and vent, also has PEG. July 29: Status quo. Discussed with RN. Labs and medication list reviewed. Stable from renal standpoint of view. July 28: Full code. Labs reviewed. Abnormal electrolytes addressed. Medication list reviewed. Patient has trach and PEG and on ventilator. Continue per consultants. July 27: Full code. In ICU. Trach to vent. Labs reviewed. Renal parameters and electrolytes stable. July 26: Remains in ICU. Remains full code. Trach to vent. Labs reviewed. Abnormal electrolytes addressed. Continue per consultants. July 25: Seen in ICU. Received PEG yesterday. Has trach connected to vent. Full code. Labs reviewed. Albumin bolus given. IV started on table feeding via GT tube initiated. July 24: Patient seen in ICU. Status quo. Has trach. Being ventilated. Has right chest tube. Labs reviewed. Continue per consultants. Low magnesium and low phosphorus replaced. July 23: Patient seen in ICU. Discussed with RN. Yesterday the patient developed tension pneumothorax. Patient has a chest tube today. Labs reviewed. Renal parameters stable. Medication list reviewed. July 22: Status quo. Labs reviewed. Serum calcium elevated. Vitamin D discontinued. Pamidronate 60 mg IV given. Continue to monitor calcium and phosphorus. Patient due for PEG today. July 21: Status quo. Awake responsive. Labs reviewed. Medication list reviewed. Stable from renal standpoint of view. Due for PEG tomorrow. Continue her current management. July 20: Status quo. PEG procedure deferred to July 22. Patient remains full code. Abnormal electrolytes addressed. FiO2 50% unchanged. Continue per consultants. July 19: Status quo. Due for PEG insertion today. Remains full code. Tra ch and vent. Low magnesium addressed. Continue per consultants. FiO2 50%. July 18: Status quo. Labs reviewed. Low potassium addressed. Continue per consultants. Remains full code. July 17: Remains full code. Trach to vent. FiO2 40%. Labs reviewed. Low potassium addressed. Continue per consultants. July 16: Status quo. FiO2 45%. Discussed with RN. Continue to taper her mind altering medications and sedatives. Stable from renal standpoint of view. Abnormal electrolytes addressed. July 15: Full code. FiO2 50%. Intubated on ventilator. No labs drawn today. Continue per consultants. July 14: Status quo. FiO2 50%. Labs reviewed. Renal parameters stable. Continue per current treatment plan and consultants. Medication list reviewed. July 13: FiO2 60% unchanged. Labs reviewed. Renal parameters stable. Medication list reviewed. Continue per consultants. July 12: Full code. Labs reviewed. Normal electrolytes addressed. Continue per pulmonary. Medication list reviewed. July 11: Remains full code. On ventilator. FiO2 down to 65%. Renal parameters stable. Low magnesium addressed. Continue her current management. July 10: Full code. On ventilator. FiO2 70%. Hemoglobin mid sevens. Renal parameters stable. Continue per consultants. July 09: Labs reviewed. Renal parameters stable. FiO2 80% unchanged. Continue per pulmonary. July 08: Labs reviewed. Renal parameters and electrolytes stable. ABG suggestive of high PCO2. At this time patient is on FiO2 of 80%. Continue per pulmonary. Continue to monitor renal parameters. July 07: No CHEM panel drawn today. More potassium given. Continue to monitor renal parameters. Continue per consultants. Discussed with RAKEL Veras. July 06: Low potassium addressed. Albumin bolus for low BP given. Patient remains full code. Continue to monitor electrolytes and renal parameters. Continue per consultants. Hemoglobin low today, transfusion per rat poisoner. July 05: Trach to vent. FiO2 80%. Renal parameters stable. PCO2 remains high at 44. Continue to monitor renal parameters. July 04: Patient now trach. Full code. Labs reviewed. Renal parameters stable. Low magnesium addressed. July 03: Intubated. Full code. Labs reviewed. Abnormal electrolytes addressed. Continue per consultants. Overall status unchanged. July 02: Remains intubated. Remains full code. Remains on FiO2 of 70%. Labs reviewed. Abnormal electrolytes addressed. Continue per pulmonary. July 01: Remains on 70% FiO2. Full code. Intubated on ventilator. Retaining CO2. Discussed with RN. Will do ABG today. Albumin bolus given. 1 dose of Diamox given. June 30: Status quo. Labs reviewed. Abnormal electrolytes addressed. Remains full code. Remains on ventilator. Magnesium sulfate 4 gram IVPB given. June 29: Full code. Intubated on ventilator. Labs reviewed. Stable from renal standpoint of view. Continue per consultants. June 28: Remains full code. Remains intubated on ventilator. Labs reviewed. Vitamin D supplement ordered. Continue to monitor renal parameters. Continue per consultants. June 27: Remains full code. Intubated on ventilator. Labs reviewed. Abnormal electrolyte addressed. Continue to monitor renal parameters and electrolytes. Continue per consultants. June 26: Labs reviewed. Remains full code. Remains intubated. Back on NGT feeding. Continue to monitor renal parameters. June 25: Labs reviewed. Renal parameters stable. Remains full code. Due to positional status patient could not be fed via NG tube. Starting TPN? Is being entertained. Continue per consultants. June 24: Labs reviewed. Renal parameters stable. Remains full code. Remains intubated on ventilator. Continue per consultants. June 23: Labs reviewed. Renal parameters stable. Discussed with RN. Abnormal electrolyte addressed. Remains full code. Remains on ventilator. Continue per consultants. June 22: Labs reviewed. Low potassium addressed. Discussed with RAKEL Moran. Patient full code. Remains on ventilator. Continue to monitor renal parameters. June 21. Labs reviewed. Abnormal electrolyte addressed. Full code. Remains on ventilator. Medication list reviewed. Continue per pulmonary management. DC IV fluid, resume Lasix daily, check chest x-ray. June 20: Labs reviewed. Abnormal electrolytes. Patient remains full code. Continue per consultants. Noted and addressed June 19: Labs reviewed. Abnormal electrolytes noted and addressed. Remains intubated on ventilator. Remains full code. June 18: Labs reviewed. Remains intubated on ventilator. Full code. Abnormal electrolyte addressed. Continue as is. June 17: Labs reviewed. Abnormal electrolytes addressed. Patient remains full code and intubated on ventilator. Continue per consultants. Renal parameters are within normal limits. June 16: Labs reviewed. Potassium chloride replaced. Remains full code. Remains intubated on ventilator. Continue per consultants. Continue to monitor renal parameters. June 15: Labs reviewed. Serum creatinine 1. Stable from renal standpoint to view. Continue per consultants. June 14: Labs reviewed. Full code. Serum creatinine of 3.5 down to 1.4. Low potassium addressed. Continue per current treatment plan. Continue to monitor renal parameters. Midodrine started. Albumin bolus given. Previously: DC Lasix drip Increase Protonix dose Monitor renal parameters, electrolytes Per orders Subjective ROS Limited/Unobtainable: Yes Objective Objective Last 24 Hour Vital Signs Date Time Temp Pulse Resp B/P (MAP) Pulse Ox O2 Delivery O2 Flow Rate FiO2 08/04/20 11:00 104 24 103/59 (74) 100 08/04/20 10:00 113 30 111/60 (77) 100 08/04/20 09:11 99.1 08/04/20 09:00 105 27 138/56 (83) 100 08/04/20 08:00 100.1 109 29 135/65 (88) 100 08/04/20 08:00 50 08/04/20 08:00 Mechanical Ventilator Mechanical Ventilator 08/04/20 07:55 113 08/04/20 07:00 107 28 131/58 (82) 100 08/04/20 06:00 107 36 122/60 (80) 100 08/04/20 05:00 105 21 108/41 (63) 100 08/04/20 04:30 113 32 150/61 (90) 98 08/04/20 04:00 Mechanical Ventilator Mechanical Ventilator 08/04/20 04:00 108 08/04/20 04:00 50 08/04/20 04:00 108 30 125/49 (74) 100 08/04/20 03:15 109 34 50 08/04/20 03:00 107 29 118/49 (72) 100 08/04/20 02:00 138/74 (95) 08/04/20 01:30 105 18 149/38 (75) 100 08/04/20 01:00 105 35 141/62 (88) 98 08/04/20 00:00 105 39 156/49 (84) 98 08/04/20 00:00 105 08/04/20 00:00 50 08/04/20 00:00 Mechanical Ventilator Mechanical Ventilator 08/03/20 23:30 112 37 165/27 (73) 96 08/03/20 23:10 119 35 50 08/03/20 23:00 114 35 164/66 (98) 98 08/03/20 22:30 108 32 149/62 (91) 98 08/03/20 22:00 105 37 166/62 (96) 99 08/03/20 21:30 105 34 161/52 (88) 99 08/03/20 21:00 104 34 170/48 (88) 98 08/03/20 20:30 107 31 159/57 (91) 100 08/03/20 20:00 106 35 165/107 (126) 98 08/03/20 20:00 Mechanical Ventilator Mechanical Ventilator 08/03/20 19:05 105 27 50 08/03/20 19:00 101 33 146/62 (90) 100 08/03/20 18:00 102 28 149/46 (80) 98 08/03/20 17:00 107 23 147/55 (85) 97 08/03/20 16:00 104 08/03/20 16:00 99.3 105 25 145/56 (85) 100 08/03/20 16:00 50 08/03/20 16:00 Mechanical Ventilator Mechanical Ventilator 08/03/20 15:24 114 33 50 08/03/20 15:00 100 23 149/62 (91) 100 08/03/20 14:00 98 27 143/57 (85) 98 08/03/20 13:00 101 34 128/68 (88) 98 08/03/20 12:10 50 08/03/20 12:01 99.5 105 36 140/57 (84) 99 08/03/20 12:00 105 36 140/57 (84) 99 08/03/20 12:00 50 08/03/20 12:00 Mechanical Ventilator Mechanical Ventilator 08/03/20 12:00 108 Intake and Output 08/03/20 08/04/20 19:00 07:00 Intake Total 875 ml 660 ml Output Total 1775 ml 2700 ml Balance -900 ml -2040 ml Free Water 110 ml IV Total 55 ml Tube Feeding 660 ml 660 ml Other 50 ml Output Urine Total 1775 ml 2700 ml Chest Tube Drainage Total 0 ml 0 ml Current Medications Medications (Trade) Dose Ordered Sig/Zelda Route PRN Reason Start Time Stop Time Status Last Admin Dose Admin Acetaminophen (Tylenol) 650 mg Q4H PRN NG Temp >100.5 07/27/20 03:45 08/26/20 03:44 08/04/20 08:41 Acetaminophen/ Hydrocodone Bitart ([place] 5/325) 1 tab Q4H PRN ORAL Moderate Pain (Pain Scale 4-6) 08/02/20 10:45 08/09/20 10:44 08/03/20 05:24 Calcitonin [place] (Miacalcin) 1 sprays DAILY NASAL 07/22/20 14:00 10/20/20 13:59 08/04/20 08:43 Dextrose (Dextrose 50%) 25 ml Q30M PRN IV Hypoglycemia 06/05/20 10:45 09/03/20 10:44 Dextrose (Dextrose 50%) 50 ml Q30M PRN IV Hypoglycemia 06/05/20 10:45 09/03/20 10:44 Docusate Sodium (Colace) 100 mg EVERY 12 HOURS GT 08/01/20 21:00 08/25/20 17:59 08/04/20 08:42 Enoxaparin Sodium (Lovenox) 100 mg EVERY 12 HOURS SUBQ 08/04/20 09:00 10/15/20 20:59 08/04/20 08:43 Guaifenesin/ Codeine Phosphate (Robitussin with codeine) 5 ml Q6H PRN NG For Cough 07/14/20 14:15 08/13/20 14:14 07/18/20 21:44 Hydromorphone HCl (Dilaudid) 2 mg Q4H PRN IVP Severe Pain (Pain Scale 7-10) 08/02/20 13:45 08/09/20 10:44 08/03/20 14:14 Lansoprazole (Prevacid) 30 mg DAILY GT 07/18/20 09:00 08/09/20 08:59 08/04/20 08:42 Levofloxacin (Levaquin) 750 mg DAILY ORAL 08/03/20 12:00 08/10/20 11:59 08/04/20 08:42 Lorazepam (Ativan 2mg/ml 1ml) 1 mg Q4H PRN IV For Anxiety 08/02/20 13:45 08/09/20 13:44 08/02/20 22:19 Magnesium Sulfate 100 ml @ 100 mls/hr Q1H IVPB 08/04/20 12:00 08/04/20 13:59 Meropenem 1 gm/ Sodium Chloride 55 ml @ 110 mls/hr Q8H IVPB 07/22/20 12:00 08/06/20 23:59 08/04/20 04:00 Metoclopramide HCl (Reglan) 10 mg Q6H IVP 08/01/20 18:00 08/31/20 17:59 08/04/20 06:47 Midodrine (Pro-Amatine) 10 mg Q8HR GT 06/30/20 14:00 09/12/20 13:59 08/03/20 21:00 Ondansetron HCl (Zofran) 4 mg Q6H PRN IVP Nausea & Vomiting 08/02/20 10:00 09/01/20 09:59 Polyethylene Glycol (Miralax) 17 gm BEDTIME ORAL 07/26/20 21:00 08/25/20 20:59 08/03/20 20:55 Quetiapine Fumarate (SEROqueL) 75 mg Q8HR GT 08/02/20 14:00 08/30/20 13:59 08/04/20 06:46 Laboratory Tests 08/03/20 13:17: POC Whole Blood Glucose 121H 08/04/20 04:24: White Blood Count 7.9, Red Blood Count 3.14L, Hemoglobin 8.9L, Hematocrit 29.8L, Mean Corpuscular Volume 95, Mean Corpuscular Hemoglobin 28.5, Mean Corpuscular Hemoglobin Concent 30.0L, Red Cell Distribution Width 18.2H, Platelet Count 260, Mean Platelet Volume 7.1, Neutrophils (%) (Auto) 56.3, Lymphocytes (%) (Auto) 22.3, Monocytes (%) (Auto) 10.1H, Eosinophils (%) (Auto) 10.2H, Basophils (%) (Auto) 1.0, Sodium Level 145, Potassium Level 3.5, Chloride Level 96L, Carbon Dioxide Level > 45*H, Blood Urea Nitrogen 24H, Creatinine 1.1, Estimat Glomerular Filtration Rate 52.8, Glucose Level 120H, Calcium Level 9.1, Phosphorus Level 3.6, Magnesium Level 1.7L, Total Bilirubin 0.7, Aspartate Amino Transf (AST/SGOT) 25, Alanine Aminotransferase (ALT/SGPT) 19, Alkaline Phosphatase 70, Total Protein 6.8, Albumin 2.6L, Globulin 4.2, Albumin/Globulin Ratio 0.6L 08/04/20 07:50: Arterial Blood pH 7.480H, Arterial Blood Partial Pressure CO2 70.4*H, Arterial Blood Partial Pressure O2 79.4, Arterial Blood HCO3 51.3*H, Arterial Blood Oxygen Saturation 95.4, Arterial Blood Base Excess 24.5*H, Jeremiah Test Positive Height (Feet): 5 Height (Inches): 5.00 Weight (Pounds): 223 General Appearance: no apparent distress EENT: other - Trach to vent Cardiovascular: tachycardia Respiratory/Chest: decreased breath sounds Abdomen: distended Rigo Tyler MD Aug 04, 2020 11:51
--- NOTE | 2020-08-04 14:30 | NUR ---
NURSE NOTES: Seen by Dr. Burger with [facility].
--- NOTE | 2020-08-04 15:41 | Cardiac Electrophysiology PN ---
Assessment/Plan Assessment/Plan 1. Respiratory failure due to COVID-19 pneumonia. On tracheostomy on 50 % Fio2. Trach exchanged 07/22/[address] Devine Echo EF 60% 2. S/P Code x2 with hypotension and sammy arrest on 07/22/20 likely due to Pneumothorax. HR stable 3. Right Pneumothorax, S/P chest tube placement. Removed 07/29/20 Thoravent placed 07/30/20 to water seal 4. Hypotension, on midodrine 10 mg 3 times daily and off pressors 5. Dysphagia. S/P PEG 07/24/20 6. Right lower extremity DVT. Follow up by Hematology. 7. Severe anemia, S/P PRBC 8. Low Mg, replaced DW RN Subjective Subjective Coded twice for hypotension and bradycardia while on the Vent about 20 minutes after tracheostomy was changed 07/22/20 Found to have Right Pneumothorax and underwent Right chest tube placement by Dr. Devine S/P PRBC. S/P PEG 07/24/20. Chest tube removed 07/29/20 Thora vent placed by Dr Devine 07/30/20 to water seal In ICU on the Vent on 50 % Fio2 and PEEP 5 In SR. Off pressors No change in conition Mg replaced Objective Last 24 Hour Vital Signs Date Time Temp Pulse Resp B/P (MAP) Pulse Ox O2 Delivery O2 Flow Rate FiO2 08/04/20 14:00 99 31 124/62 (82) 100 08/04/20 13:00 106 28 116/59 (78) 100 08/04/20 12:00 50 08/04/20 12:00 Mechanical Ventilator Mechanical Ventilator 08/04/20 12:00 99.3 104 25 107/56 (73) 100 08/04/20 11:16 105 34 50 08/04/20 11:00 104 24 103/59 (74) 100 08/04/20 10:00 113 30 111/60 (77) 100 08/04/20 09:11 99.1 08/04/20 09:00 105 27 138/56 (83) 100 08/04/20 08:00 100.1 109 29 135/65 (88) 100 08/04/20 08:00 50 08/04/20 08:00 Mechanical Ventilator Mechanical Ventilator 08/04/20 07:55 113 08/04/20 07:11 106 36 50 08/04/20 07:00 107 28 131/58 (82) 100 08/04/20 06:00 107 36 122/60 (80) 100 08/04/20 05:00 105 21 108/41 (63) 100 08/04/20 04:30 113 32 150/61 (90) 98 08/04/20 04:00 Mechanical Ventilator Mechanical Ventilator 08/04/20 04:00 108 08/04/20 04:00 50 08/04/20 04:00 108 30 125/49 (74) 100 08/04/20 03:15 109 34 50 08/04/20 03:00 107 29 118/49 (72) 100 08/04/20 02:00 138/74 (95) 08/04/20 01:30 105 18 149/38 (75) 100 08/04/20 01:00 105 35 141/62 (88) 98 08/04/20 00:00 105 39 156/49 (84) 98 08/04/20 00:00 105 08/04/20 00:00 50 08/04/20 00:00 Mechanical Ventilator Mechanical Ventilator 08/03/20 23:30 112 37 165/27 (73) 96 08/03/20 23:10 119 35 50 08/03/20 23:00 114 35 164/66 (98) 98 08/03/20 22:30 108 32 149/62 (91) 98 08/03/20 22:00 105 37 166/62 (96) 99 08/03/20 21:30 105 34 161/52 (88) 99 08/03/20 21:00 104 34 170/48 (88) 98 08/03/20 20:30 107 31 159/57 (91) 100 08/03/20 20:00 106 35 165/107 (126) 98 08/03/20 20:00 Mechanical Ventilator Mechanical Ventilator 08/03/20 19:05 105 27 50 08/03/20 19:00 101 33 146/62 (90) 100 08/03/20 18:00 102 28 149/46 (80) 98 08/03/20 17:00 107 23 147/55 (85) 97 08/03/20 16:00 104 08/03/20 16:00 99.3 105 25 145/56 (85) 100 08/03/20 16:00 50 08/03/20 16:00 Mechanical Ventilator Mechanical Ventilator Intake and Output 08/03/20 08/04/20 19:00 07:00 Intake Total 875 ml 660 ml Output Total 1775 ml 2700 ml Balance -900 ml -2040 ml Free Water 110 ml IV Total 55 ml Tube Feeding 660 ml 660 ml Other 50 ml Output Urine Total 1775 ml 2700 ml Chest Tube Drainage Total 0 ml 0 ml Laboratory Tests Test 08/04/20 04:24 08/04/20 07:50 White Blood Count 7.9 K/UL (4.8-10.8) Red Blood Count 3.14 M/UL (4.20-5.40) L Hemoglobin 8.9 G/DL (12.0-16.0) L Hematocrit 29.8 % (37.0-47.0) L Mean Corpuscular Volume 95 FL (80-99) Mean Corpuscular Hemoglobin 28.5 PG (27.0-31.0) Mean Corpuscular Hemoglobin Concent 30.0 G/DL (32.0-36.0) L Red Cell Distribution Width 18.2 % (11.6-14.8) H Platelet Count 260 K/UL (150-450) Mean Platelet Volume 7.1 FL (6.5-10.1) Neutrophils (%) (Auto) 56.3 % (45.0-75.0) Lymphocytes (%) (Auto) 22.3 % (20.0-45.0) Monocytes (%) (Auto) 10.1 % (1.0-10.0) H Eosinophils (%) (Auto) 10.2 % (0.0-3.0) H Basophils (%) (Auto) 1.0 % (0.0-2.0) Sodium Level 145 MMOL/L (136-145) Potassium Level 3.5 MMOL/L (3.5-5.1) Chloride Level 96 MMOL/L (98-107) L Carbon Dioxide Level > 45 MMOL/L (21-32) *H Blood Urea Nitrogen 24 mg/dL (7-18) H Creatinine 1.1 MG/DL (0.55-1.30) Estimat Glomerular Filtration Rate 52.8 mL/min (>60) Glucose Level 120 MG/DL (74-106) H Calcium Level 9.1 MG/DL (8.5-10.1) Phosphorus Level 3.6 MG/DL (2.5-4.9) Magnesium Level 1.7 MG/DL (1.8-2.4) L Total Bilirubin 0.7 MG/DL (0.2-1.0) Aspartate Amino Transf (AST/SGOT) 25 U/L (15-37) Alanine Aminotransferase (ALT/SGPT) 19 U/L (12-78) Alkaline Phosphatase 70 U/L (46-116) Total Protein 6.8 G/DL (6.4-8.2) Albumin 2.6 G/DL (3.4-5.0) L Globulin 4.2 g/dL Albumin/Globulin Ratio 0.6 (1.0-2.7) L Arterial Blood pH 7.480 (7.350-7.450) Arterial Blood Partial Pressure CO2 70.4 mmHg (35.0-45.0) *H Arterial Blood Partial Pressure O2 79.4 mmHg (75.0-100.0) Arterial Blood HCO3 51.3 mmol/L (22.0-26.0) *H Arterial Blood Oxygen Saturation 95.4 % (95-100) Arterial Blood Base Excess 24.5 (-2-2) *H Jeremiah Test Positive Objective HEAD AND NECK: Status post tracheostomy LUNGS: Coarse rhonchi. Right ThoraVent in place CARDIOVASCULAR: Regular S1 and S2 with no gallop. ABDOMEN: Soft.S/P PEG EXTREMITIES: 1+ pitting edema. Hill Burger MD Aug 04, 2020 15:41
--- NOTE | 2020-08-04 19:14 | NUR ---
NURSE HAND-OFF REPORT: Latest Vital Signs: Temperature 99.6 , Pulse 89 , B/P 127 /42 , Respiratory Rate 18 , O2 SAT 100 , Mechanical Ventilator, O2 Flow Rate . Vital Sign Comment: [] EKG Rhythm: Sinus Rhythm Rhythm change?: N Notified?: Babs Nava and Vamshi Garcia MD Response: Latest Meyers Fall Score: 50 Fall Risk: High Risk Safety Measures: Call light Within Reach, Bed Alarm Zone 3, Side Rails Side Rails x2, Bed position Low and Locked. Fall Precautions: Yellow Socks Yellow Gown Door Sign Patient Fall Education Report given to Hanna ELLINGTON.
[2020-08-04] MEDS: Miralax 17gm pkt ORAL SCH (21:04)
[2020-08-05] VITALS (32 sets, daily range): BP systolic 109–143; BP diastolic 45–97
[2020-08-05] MEDS: Metoclopramide 10mg/2ml Inj IVP SCH ×4 (00:59→17:41)
[2020-08-05] MEDS: Meropenem 1 GM in NS 55 ML IVPB SCH (04:17)
[2020-08-05] MEDS: Midodrine 10mg tab GT SCH ×3 (06:00→21:00)
--- NOTE | 2020-08-05 06:42 | Hematology/Onc Progress Note ---
Assessment/Plan Assessment/Plan # Deep vein thrombosis of the right calf --> given onoing anemia and low plts --> consider ivc if bleeding--once stable, needs it placed --> once stable, for radiology and ivc filter placement --> on lovenox bid now # Thrombocytopenia is due to infection/underlying covid19+++ --> ABX ceftriaxone -->zosyn-->off-->meropenem/vanc --> on steriods likely cause of initial wbc --> per pulm --> plt 107->156-->192-->205 --> smear reviewed # Leukocytosis due to Pneumonia due to COVID-19 virus --> per pulm rx -> sp remdesivir --> ABX vanc/meropenem --> wbc 11.9-->11-->21-->8.8-->11.7-->13-->24-->9 # Anemia due to chronic disease --> hgb goal is >7 --> transfuse prn --> ferritin is >1000 --> hold off on iron --> 10-->9.8->9-->8-->8.2->>7.1-->7.9->7.5-->9.5-->8.5-->8.8->8.4->8.9 --> 1 unit prbc / # Elevated ddimer due to covid19++ --> duplex legs is negative --> underlying covid rx # Hypoxia -> due to covid19 --> steriods as needed # Hypoxemia --> rx same as above # Respiratory failure --> on vent/trach --> per pulm # Diabetes mellitus out of control --> hgb a1c goal <7 # Dysphagia --> s/p peg # Poor prognosis # Dvt ppx ivc filter once more stable --> dvt ppx now lovenox sq Appreciate consultation and bowen RN Subjective Cardiovascular: Denies: no symptoms, chest pain, edema, irregular heart rate, lightheadedness, palpitations, syncope, other Respiratory: Denies: no symptoms, cough, shortness of breath, SOB with excertion, SOB at rest, sputum, wheezing, other Gastrointestinal/Abdominal: Denies: no symptoms, abdomen distended, abdominal pain, black stools, tarry stools, blood in stool, constipated, diarrhea, difficulty swallowing, nausea, poor appetite, poor fluid intake, rectal bleeding, vomiting, other Endocrine: Denies: no symptoms, excessive sweating, flushing, intolerance to cold, intolerance to heat, increased hunger, increased thirst, increased urine, unexplained weight gain, unexplained weight loss, other Allergies: Coded Allergies: No Known Allergies (Unverified , 05/28/20) Subjective 06/10 nv, on vent, with ogt, on fentanyl and versed, plt stable 06/11 nv, vent adjusted is on ogt, meds reviewed 06/12 nv, vent, meds noted, labs noted, no bleeding, hgb 10.4 06/13 nv, is on vent, meds reviewed, no bleeding, cbc reviewed 06/14 nv, on vent, tachy, labs reviewed, gross hematuria, febrile overnight, abx 06/17 nv, on vent, labs noted, no major changes, feeling better overnight 06/18 nv, meds reviewed, labs noted, no major events, hgb 8.6 06/19 nv, remains intubated, with fluids, labs reviewed, meds noted 06/20 nv, intubated remains on restraints, meds noted as well, as labs 06/21, remains on vent, on restraints, meds reviewed, labs noted 06/22: covering Dr. Del Cid no acute events 06/23 sedated, on vent, nv, intubated, meds reviewed, versed 06/24 nv, on vent, no night sweats, no bleeding, remains in icu 06/25 nv, on vent, icu, meds noted, no bleeding, comfortable 06/26 nv, on versed, icu, weaning parameters, labs noted 06/27 nv, overnight fighting vent, as per pulm fentanyl on board 06/28 nv, on vent, labs reviewed, as per pulm, meds noted 06/30 nv, icu, labs pending, is on fentanyl, versed, no new changes 07/01 nv, icu, is on vent, labs pending, no new changes per rn 07/02 nv, icu is on vent, labs noted, hgb is stable 07/03 nv, icu, is on vent, potential trrach when stable, cbc reviewed 07/04 icu, nv, labs are noted, stable for trach today dw Rn Dl 07/05 icu, nv, on vent, with ng and picc in place, labs noted, s/p trach 07/07 icu, nv, on tv, no bleeding, labs noted, meds reviewed 07/08 icu, nv, on tv, labs reviewed, meds noted, no bleeding 07/09 icu, nv, meds noted, no bleeding, blood transfusion was completed 07/10 icu, nv, labs ntoed, no bleeding, hgb improved, hgb 7.8 07/11 icu, nv, labs reviewed, hgb is improved, for ivcf if stabilizes 07/12 icu, nv, labs reviewed, meds noted, no bleeding, remains on vent 07/13 icu, on vent, nv, no bleeding, labs reviewed, no major events, bowen rn 07/14 icu, on vent, nv, tolerating ngt feeds, bowen Rn, meds reviewed 07/15 icu, on vent, trach, tolerating ngt, meds noted, no bleeding 07/16 icu, vent, labs are noted, with trach, is stable, hgb 9.2 07/17 icu, had a bm overnight, remains on vent with trach, labs noted 07/18 icu, nv, labs are ntoed, no bleeding, on trach, on levophed 07/20 nc, icu, meds noted, v/t, no bleeding, labs noted, on versed 07/21 nv, trach/vent, tube feeds on hold, labs reviewed, icu 07/22 nv, icu, bp remains high, on v/t, labs noted, no bleeding 07/23 nv, ct is in place, on v/t, meds reviewed, in icu, on LEVO 07/24 nv, ct with blood secretions, to get 1 unit prbc today, icu 07/25 icu, nv, trach/v, obtunded, sedated, no bleeding, bowen rn 07/26 icu, nv, v/t, with gt, remains obtunded, as well as sedated, labs noted 07/27: no events. 07/28: remains intubated on vent 07/29 agitated, tachypneic, tachycardic is on vent, labs reviewed, meds noted 07/30 vent setting adjusted, is afebrile, no bleeding, tachycardic, labs noted 07/31 icu, trach/vent, on fentanyl gtt, labs reviewed, no bleeding 08/01 icu, nv, on t/v, fentanyl, hgb 9.4, no hemolysis, meds noted 08/02 icu, nv, t/v, labs reviewed, meds noted, no bleeding, did have vomiting o/n 08/04 nv, is in icu, labs reviewed, meds noted, no bleeding, dw rn 08/05 nv, icu, meds reviewed, dw rn, no major bleeding Objective Objective Current Medications Medications (Trade) Dose Ordered Sig/Zelda Route PRN Reason Start Time Stop Time Status Last Admin Dose Admin Acetaminophen (Tylenol) 650 mg Q4H PRN NG Temp >100.5 07/27/20 03:45 08/26/20 03:44 08/04/20 08:41 Acetaminophen/ Hydrocodone Bitart (Halsey 5/325) 1 tab Q4H PRN ORAL Moderate Pain (Pain Scale 4-6) 08/02/20 10:45 08/09/20 10:44 08/03/20 05:24 Calcitonin Armstrong (Miacalcin) 1 sprays DAILY NASAL 07/22/20 14:00 10/20/20 13:59 08/04/20 08:43 Dextrose (Dextrose 50%) 25 ml Q30M PRN IV Hypoglycemia 06/05/20 10:45 09/03/20 10:44 Dextrose (Dextrose 50%) 50 ml Q30M PRN IV Hypoglycemia 06/05/20 10:45 09/03/20 10:44 Docusate Sodium (Colace) 100 mg EVERY 12 HOURS GT 08/01/20 21:00 08/25/20 17:59 08/04/20 21:03 Enoxaparin Sodium (Lovenox) 100 mg EVERY 12 HOURS SUBQ 08/04/20 09:00 10/15/20 20:59 08/04/20 21:06 Guaifenesin/ Codeine Phosphate (Robitussin with codeine) 5 ml Q6H PRN NG For Cough 07/14/20 14:15 08/13/20 14:14 07/18/20 21:44 Hydromorphone HCl (Dilaudid) 2 mg Q4H PRN IVP Severe Pain (Pain Scale 7-10) 08/02/20 13:45 08/09/20 10:44 08/03/20 14:14 Lansoprazole (Prevacid) 30 mg DAILY GT 07/18/20 09:00 08/09/20 08:59 08/04/20 08:42 Levofloxacin (Levaquin) 750 mg DAILY ORAL 08/03/20 12:00 08/10/20 11:59 08/04/20 08:42 Lorazepam (Ativan 2mg/ml 1ml) 1 mg Q4H PRN IV For Anxiety 08/02/20 13:45 08/09/20 13:44 08/02/20 22:19 Meropenem 1 gm/ Sodium Chloride 55 ml @ 110 mls/hr Q8H IVPB 07/22/20 12:00 08/06/20 23:59 08/05/20 04:17 Metoclopramide HCl (Reglan) 10 mg Q6H IVP 08/01/20 18:00 08/31/20 17:59 08/05/20 00:59 Midodrine (Pro-Amatine) 10 mg Q8HR GT 06/30/20 14:00 09/12/20 13:59 08/04/20 13:24 Ondansetron HCl (Zofran) 4 mg Q6H PRN IVP Nausea & Vomiting 08/02/20 10:00 09/01/20 09:59 Polyethylene Glycol (Miralax) 17 gm BEDTIME ORAL 07/26/20 21:00 08/25/20 20:59 08/04/20 21:04 Quetiapine Fumarate (SEROqueL) 75 mg Q8HR GT 08/02/20 14:00 08/30/20 13:59 08/04/20 21:20 Last 24 Hour Vital Signs Date Time Temp Pulse Resp B/P (MAP) Pulse Ox O2 Delivery O2 Flow Rate FiO2 08/05/20 06:30 81 31 133/70 (91) 99 08/05/20 06:00 86 30 130/54 (79) 100 08/05/20 05:30 81 25 133/45 (74) 100 08/05/20 05:00 88 30 133/61 (85) 100 08/05/20 04:00 85 31 125/57 (79) 100 08/05/20 04:00 45 08/05/20 04:00 Mechanical Ventilator Mechanical Ventilator 08/05/20 03:48 85 08/05/20 03:30 89 29 136/60 (85) 100 08/05/20 03:15 83 29 45 08/05/20 03:00 86 24 132/56 (81) 100 08/05/20 02:00 87 26 130/56 (80) 100 08/05/20 01:00 88 23 138/62 (87) 100 08/05/20 00:30 98 25 138/47 (77) 100 08/05/20 00:00 Mechanical Ventilator Mechanical Ventilator 08/05/20 00:00 50 08/05/20 00:00 84 28 132/71 (91) 100 08/05/20 00:00 96 08/04/20 23:30 88 18 124/51 (75) 99 08/04/20 23:10 93 30 50 08/04/20 23:00 85 28 122/48 (72) 100 08/04/20 22:00 89 29 131/59 (83) 100 08/04/20 21:00 80 35 131/68 (89) 100 08/04/20 20:00 50 08/04/20 20:00 87 08/04/20 20:00 Mechanical Ventilator Mechanical Ventilator 08/04/20 20:00 99.0 99 26 129/56 (80) 100 08/04/20 19:15 75 27 50 08/04/20 19:00 89 18 127/42 (70) 100 08/04/20 18:00 88 21 129/54 (79) 100 08/04/20 17:02 99.6 95 28 112/64 (80) 100 08/04/20 16:02 97 08/04/20 16:00 50 08/04/20 16:00 Mechanical Ventilator Mechanical Ventilator 08/04/20 16:00 98 25 108/59 (75) 100 08/04/20 15:09 93 30 50 08/04/20 15:00 105 21 126/59 (81) 100 08/04/20 14:00 99 31 124/62 (82) 100 08/04/20 13:00 106 28 116/59 (78) 100 08/04/20 12:00 50 08/04/20 12:00 Mechanical Ventilator Mechanical Ventilator 08/04/20 12:00 99.3 104 25 107/56 (73) 100 08/04/20 11:58 104 08/04/20 11:16 105 34 50 08/04/20 11:00 104 24 103/59 (74) 100 08/04/20 10:00 113 30 111/60 (77) 100 08/04/20 09:11 99.1 08/04/20 09:00 105 27 138/56 (83) 100 08/04/20 08:00 100.1 109 29 135/65 (88) 100 08/04/20 08:00 50 08/04/20 08:00 Mechanical Ventilator Mechanical Ventilator 08/04/20 07:55 113 08/04/20 07:11 106 36 50 08/04/20 07:00 107 28 131/58 (82) 100 08/04/20 06:00 107 36 122/60 (80) 100 08/04/20 05:00 105 21 108/41 (63) 100 08/04/20 04:30 113 32 150/61 (90) 98 08/04/20 04:00 Mechanical Ventilator Mechanical Ventilator 08/04/20 04:00 108 08/04/20 04:00 50 08/04/20 04:00 108 30 125/49 (74) 100 08/04/20 03:15 109 34 50 08/04/20 03:00 107 29 118/49 (72) 100 08/04/20 02:00 138/74 (95) 08/04/20 01:30 105 18 149/38 (75) 100 08/04/20 01:00 105 35 141/62 (88) 98 08/04/20 00:00 105 39 156/49 (84) 98 08/04/20 00:00 105 08/04/20 00:00 50 08/04/20 00:00 Mechanical Ventilator Mechanical Ventilator 08/03/20 23:30 112 37 165/27 (73) 96 08/03/20 23:10 119 35 50 08/03/20 23:00 114 35 164/66 (98) 98 08/03/20 22:30 108 32 149/62 (91) 98 08/03/20 22:00 105 37 166/62 (96) 99 08/03/20 21:30 105 34 161/52 (88) 99 08/03/20 21:00 104 34 170/48 (88) 98 08/03/20 20:30 107 31 159/57 (91) 100 08/03/20 20:00 106 35 165/107 (126) 98 08/03/20 20:00 Mechanical Ventilator Mechanical Ventilator 08/03/20 19:05 105 27 50 08/03/20 19:00 101 33 146/62 (90) 100 08/03/20 18:00 102 28 149/46 (80) 98 08/03/20 17:00 107 23 147/55 (85) 97 08/03/20 16:00 104 08/03/20 16:00 99.3 105 25 145/56 (85) 100 08/03/20 16:00 50 08/03/20 16:00 Mechanical Ventilator Mechanical Ventilator 08/03/20 15:24 114 33 50 08/03/20 15:00 100 23 149/62 (91) 100 08/03/20 14:00 98 27 143/57 (85) 98 08/03/20 13:00 101 34 128/68 (88) 98 08/03/20 12:10 50 08/03/20 12:01 99.5 105 36 140/57 (84) 99 08/03/20 12:00 105 36 140/57 (84) 99 08/03/20 12:00 50 08/03/20 12:00 Mechanical Ventilator Mechanical Ventilator 08/03/20 12:00 108 08/03/20 11:20 102 32 35 35 08/03/20 11:00 105 37 138/51 (80) 99 08/03/20 10:00 99.0 104 39 143/55 (84) 98 08/03/20 09:00 105 31 137/82 (100) 97 08/03/20 08:00 105 31 102/63 (76) 92 08/03/20 08:00 50 08/03/20 08:00 Mechanical Ventilator Mechanical Ventilator 08/03/20 08:00 105 08/03/20 07:02 99 29 50 08/03/20 07:00 107 29 99/49 (66) 99 Intake and Output 08/04/20 08/05/20 19:00 07:00 Intake Total 660 ml 495 ml Output Total 2000 ml Balance -1340 ml 495 ml Tube Feeding 660 ml 495 ml Output Urine Total 2000 ml # Bowel Movements 1 3 Labs Test 08/03/20 03:10 08/03/20 13:17 08/04/20 04:24 08/04/20 07:50 White Blood Count 7.3 K/UL (4.8-10.8) 7.9 K/UL (4.8-10.8) Red Blood Count 2.78 M/UL (4.20-5.40) 3.14 M/UL (4.20-5.40) Hemoglobin 8.0 G/DL (12.0-16.0) 8.9 G/DL (12.0-16.0) Hematocrit 26.7 % (37.0-47.0) 29.8 % (37.0-47.0) Mean Corpuscular Volume 96 FL (80-99) 95 FL (80-99) Mean Corpuscular Hemoglobin 28.7 PG (27.0-31.0) 28.5 PG (27.0-31.0) Mean Corpuscular Hemoglobin Concent 29.9 G/DL (32.0-36.0) 30.0 G/DL (32.0-36.0) Red Cell Distribution Width 19.0 % (11.6-14.8) 18.2 % (11.6-14.8) Platelet Count 218 K/UL (150-450) 260 K/UL (150-450) Mean Platelet Volume 7.4 FL (6.5-10.1) 7.1 FL (6.5-10.1) Neutrophils (%) (Auto) 57.3 % (45.0-75.0) 56.3 % (45.0-75.0) Lymphocytes (%) (Auto) 21.9 % (20.0-45.0) 22.3 % (20.0-45.0) Monocytes (%) (Auto) 11.9 % (1.0-10.0) 10.1 % (1.0-10.0) Eosinophils (%) (Auto) 7.5 % (0.0-3.0) 10.2 % (0.0-3.0) Basophils (%) (Auto) 1.4 % (0.0-2.0) 1.0 % (0.0-2.0) Sodium Level 144 MMOL/L (136-145) 145 MMOL/L (136-145) Potassium Level 4.1 MMOL/L (3.5-5.1) 3.5 MMOL/L (3.5-5.1) Chloride Level 99 MMOL/L (98-107) 96 MMOL/L (98-107) Carbon Dioxide Level 45 MMOL/L (21-32) > 45 MMOL/L (21-32) Anion Gap 1 mmol/L (5-15) Blood Urea Nitrogen 19 mg/dL (7-18) 24 mg/dL (7-18) Creatinine 1.3 MG/DL (0.55-1.30) 1.1 MG/DL (0.55-1.30) Estimat Glomerular Filtration Rate 43.6 mL/min (>60) 52.8 mL/min (>60) Glucose Level 104 MG/DL (74-106) 120 MG/DL (74-106) Calcium Level 8.2 MG/DL (8.5-10.1) 9.1 MG/DL (8.5-10.1) Magnesium Level 2.1 MG/DL (1.8-2.4) 1.7 MG/DL (1.8-2.4) Total Bilirubin 0.6 MG/DL (0.2-1.0) 0.7 MG/DL (0.2-1.0) Aspartate Amino Transf (AST/SGOT) 26 U/L (15-37) 25 U/L (15-37) Alanine Aminotransferase (ALT/SGPT) 17 U/L (12-78) 19 U/L (12-78) Alkaline Phosphatase 65 U/L (46-116) 70 U/L (46-116) Total Protein 6.3 G/DL (6.4-8.2) 6.8 G/DL (6.4-8.2) Albumin 2.3 G/DL (3.4-5.0) 2.6 G/DL (3.4-5.0) Globulin 4.0 g/dL 4.2 g/dL Albumin/Globulin Ratio 0.6 (1.0-2.7) 0.6 (1.0-2.7) POC Whole Blood Glucose 121 MG/DL (74-106) Phosphorus Level 3.6 MG/DL (2.5-4.9) Arterial Blood pH 7.480 (7.350-7.450) Arterial Blood Partial Pressure CO2 70.4 mmHg (35.0-45.0) Arterial Blood Partial Pressure O2 79.4 mmHg (75.0-100.0) Arterial Blood HCO3 51.3 mmol/L (22.0-26.0) Arterial Blood Oxygen Saturation 95.4 % (95-100) Arterial Blood Base Excess 24.5 (-2-2) Jeremiah Test Positive Height (Feet): 5 Height (Inches): 5.00 Weight (Pounds): 223 Objective GeNL: nv HEENT: ngt++ Pulm: vent/trach++ CV: rrr Abd: soft, nt, nd ++gt Ext: no cce Myron Condon MD Aug 05, 2020 06:42
--- NOTE | 2020-08-05 07:00 | NUR ---
NURSE NOTES: Received report from RAKEL Ferreira. Pt in bed awake and uzbek speaking. No signs of distress noted. Side railsx3 up for safety. Bed in it's lowest position and locked. On trach connect to AC,15,400,35% peep of 5. IV site in LAC 20G TKO patent and intact. Right AC line not working and removed. G-tube running with Glucerna 1.2 @55ml/hr patent and asymptomatic. Call light within reach. Will continue plan of care.
--- NOTE | 2020-08-05 07:15 | NUR ---
RESPIRATORY NOTE: PT received on AC/VC: 15, 400 40%,+5. FiO2 was titrated to 35%. Pt is tolerating change well. Iván RN is aware. Alarms are on and audible. Vent circuit is secure and out of the way. Airway is secure and patent. No s/s of acute respiratory distress noted at this time. Will continue to closely monitor.
[2020-08-05] MEDS: Docusate 100mg/10ml Liq GT SCH ×2 (07:51→21:13)
[2020-08-05] MEDS: Levofloxacin 750mg tab ORAL SCH (08:17)
[2020-08-05] MEDS: Enoxaparin 100mg Inj SUBQ SCH ×2 (08:18→21:14)
--- NOTE | 2020-08-05 08:49 | NUR ---
RADIOLOGY DEPT. CHEST X-RAY DONE.-P.DYE
--- NOTE | 2020-08-05 09:00 | Pulmonology Progress Note ---
Subjective ROS Limited/Unobtainable: Yes Interval Events: Chest tube removed (07/29), Thoravent(07/30) Constitutional: Reports: fever, other - Huxu=[id number] HEENT: Repors: no symptoms Respiratory: Reports: no symptoms Cardiovascular: Reports: no symptoms Gastrointestinal/Abdominal: Reports: vomiting Genitourinary: Reports: no symptoms Allergies: Coded Allergies: No Known Allergies (Unverified , 05/28/20) All Systems: reviewed and negative except above Objective Last 24 Hour Vital Signs Date Time Temp Pulse Resp B/P (MAP) Pulse Ox O2 Delivery O2 Flow Rate FiO2 08/05/20 07:00 83 28 122/94 (103) 99 08/05/20 06:30 81 31 133/70 (91) 99 08/05/20 06:00 86 30 130/54 (79) 100 08/05/20 05:30 81 25 133/45 (74) 100 08/05/20 05:00 88 30 133/61 (85) 100 08/05/20 04:00 85 31 125/57 (79) 100 08/05/20 04:00 45 08/05/20 04:00 Mechanical Ventilator Mechanical Ventilator 08/05/20 03:48 85 08/05/20 03:30 89 29 136/60 (85) 100 08/05/20 03:15 83 29 45 08/05/20 03:00 86 24 132/56 (81) 100 08/05/20 02:00 87 26 130/56 (80) 100 08/05/20 01:00 88 23 138/62 (87) 100 08/05/20 00:30 98 25 138/47 (77) 100 08/05/20 00:00 Mechanical Ventilator Mechanical Ventilator 08/05/20 00:00 50 08/05/20 00:00 84 28 132/71 (91) 100 08/05/20 00:00 96 08/04/20 23:30 88 18 124/51 (75) 99 08/04/20 23:10 93 30 50 08/04/20 23:00 85 28 122/48 (72) 100 08/04/20 22:00 89 29 131/59 (83) 100 08/04/20 21:00 80 35 131/68 (89) 100 08/04/20 20:00 50 08/04/20 20:00 87 08/04/20 20:00 Mechanical Ventilator Mechanical Ventilator 08/04/20 20:00 99.0 99 26 129/56 (80) 100 08/04/20 19:15 75 27 50 08/04/20 19:00 89 18 127/42 (70) 100 08/04/20 18:00 88 21 129/54 (79) 100 08/04/20 17:02 99.6 95 28 112/64 (80) 100 08/04/20 16:02 97 08/04/20 16:00 50 08/04/20 16:00 Mechanical Ventilator Mechanical Ventilator 08/04/20 16:00 98 25 108/59 (75) 100 08/04/20 15:09 93 30 50 08/04/20 15:00 105 21 126/59 (81) 100 08/04/20 14:00 99 31 124/62 (82) 100 08/04/20 13:00 106 28 116/59 (78) 100 08/04/20 12:00 50 08/04/20 12:00 Mechanical Ventilator Mechanical Ventilator 08/04/20 12:00 99.3 104 25 107/56 (73) 100 08/04/20 11:58 104 08/04/20 11:16 105 34 50 08/04/20 11:00 104 24 103/59 (74) 100 08/04/20 10:00 113 30 111/60 (77) 100 08/04/20 09:11 99.1 08/04/20 09:00 105 27 138/56 (83) 100 Intake and Output 08/04/20 08/05/20 19:00 07:00 Intake Total 660 ml 605 ml Output Total 2000 ml 2100 ml Balance -1340 ml -1495 ml Tube Feeding 660 ml 605 ml Output Urine Total 2000 ml 2100 ml # Bowel Movements 1 3 General Appearance: no acute distress HEENT: normocephalic, status post trach Respiratory: chest wall non-tender Cardiovascular: normal peripheral pulses Abdomen: normal bowel sounds, other - s/p PEG Current Medications Medications (Trade) Dose Ordered Sig/Zelda Route PRN Reason Start Time Stop Time Status Last Admin Dose Admin Acetaminophen (Tylenol) 650 mg Q4H PRN NG Temp >100.5 07/27/20 03:45 08/26/20 03:44 08/04/20 08:41 Acetaminophen/ Hydrocodone Bitart ([place] 5/325) 1 tab Q4H PRN ORAL Moderate Pain (Pain Scale 4-6) 08/02/20 10:45 08/09/20 10:44 08/03/20 05:24 Calcitonin [place] (Miacalcin) 1 sprays DAILY NASAL 07/22/20 14:00 10/20/20 13:59 08/05/20 08:19 Dextrose (Dextrose 50%) 25 ml Q30M PRN IV Hypoglycemia 06/05/20 10:45 09/03/20 10:44 Dextrose (Dextrose 50%) 50 ml Q30M PRN IV Hypoglycemia 06/05/20 10:45 09/03/20 10:44 Docusate Sodium (Colace) 100 mg EVERY 12 HOURS GT 08/01/20 21:00 08/25/20 17:59 08/04/20 21:03 Enoxaparin Sodium (Lovenox) 100 mg EVERY 12 HOURS SUBQ 08/04/20 09:00 10/15/20 20:59 08/05/20 08:18 Guaifenesin/ Codeine Phosphate (Robitussin with codeine) 5 ml Q6H PRN NG For Cough 07/14/20 14:15 08/13/20 14:14 07/18/20 21:44 Hydromorphone HCl (Dilaudid) 2 mg Q4H PRN IVP Severe Pain (Pain Scale 7-10) 08/05/20 06:45 08/09/20 10:44 Lansoprazole (Prevacid) 30 mg DAILY GT 07/18/20 09:00 08/09/20 08:59 08/05/20 08:17 Levofloxacin (Levaquin) 750 mg DAILY ORAL 08/03/20 12:00 08/10/20 11:59 08/05/20 08:17 Lorazepam (Ativan 2mg/ml 1ml) 1 mg Q4H PRN IV For Anxiety 08/02/20 13:45 08/09/20 13:44 08/02/20 22:19 Meropenem 1 gm/ Sodium Chloride 55 ml @ 110 mls/hr Q8H IVPB 07/22/20 12:00 08/06/20 23:59 08/05/20 04:17 Metoclopramide HCl (Reglan) 10 mg Q6H IVP 08/01/20 18:00 08/31/20 17:59 08/05/20 06:45 Midodrine (Pro-Amatine) 10 mg Q8HR GT 06/30/20 14:00 09/12/20 13:59 08/04/20 13:24 Ondansetron HCl (Zofran) 4 mg Q6H PRN IVP Nausea & Vomiting 08/02/20 10:00 09/01/20 09:59 Polyethylene Glycol (Miralax) 17 gm BEDTIME ORAL 07/26/20 21:00 08/25/20 20:59 08/04/20 21:04 Quetiapine Fumarate (SEROqueL) 75 mg Q8HR GT 08/02/20 14:00 08/30/20 13:59 08/05/20 07:10 Assessment/Plan Assessment/Plan 1. COVID-19 pneumonia - Intubated 05/28/20 -s/p solumedrol, Rocephin - Continue PEEP 6 ->7 ->5 - Peak airway pressures better - FiO2 100% -> 90 ->80->60 ->40 ->80 ->100 ->70 ->60 -> 50 ->45 ->40 ->50 ->40-> 80 -> 70->50->45%; PEEP 7 ->5 - s/p PEG - Sputum Cx pseudo -> on meropenem per ID -> resistant to meropenem. Needs Abx change per ID 2. Hyponatremia -Per primary MD 3. Elevated inflammatory markers - has high D dimer; On Lovenox -> Lovenox held given anemia 4. DVT of the right calf - once stable, consider IVC filter per heme vs oral DOAC - was on Lovenox but held given anemia 5. Decreased PEEP S/p trach Reported cuff leak per RN/RT Changed 07/22/20 however still has cuff leak 6. Leukocytosis; now WBC wnl - ID following - BCx Serratia Marcescens - UCx neg - Sp Cx pseudomonas 7. Pulmonary edema - Will start Lasix 40 mg IV Q12h Now off Levophed Now off IV sedation; on Seroquel TID, added [place] and Dilaudid prn s/p PEG Required R CT due to PTX 07/22/20 - CT removed (07/29) ->however, f/u CXR shows PTX with tracheal deviation. CT reinserted (07/30) The care of this patient was discussed with my supervising physician Time spent for this encounter was approximately 31 minutes Vamshi Garcia Aug 05, 2020 09:00
--- NOTE | 2020-08-05 09:10 | General Progress Note ---
Subjective Constitutional: Reports: weakness Allergies: Coded Allergies: No Known Allergies (Unverified , 05/28/20) All Systems: reviewed and negative except above Subjective trach vent chest tube in icu Objective Last 24 Hour Vital Signs Date Time Temp Pulse Resp B/P (MAP) Pulse Ox O2 Delivery O2 Flow Rate FiO2 08/05/20 07:00 83 28 122/94 (103) 99 08/05/20 06:30 81 31 133/70 (91) 99 08/05/20 06:00 86 30 130/54 (79) 100 08/05/20 05:30 81 25 133/45 (74) 100 08/05/20 05:00 88 30 133/61 (85) 100 08/05/20 04:00 85 31 125/57 (79) 100 08/05/20 04:00 45 08/05/20 04:00 Mechanical Ventilator Mechanical Ventilator 08/05/20 03:48 85 08/05/20 03:30 89 29 136/60 (85) 100 08/05/20 03:15 83 29 45 08/05/20 03:00 86 24 132/56 (81) 100 08/05/20 02:00 87 26 130/56 (80) 100 08/05/20 01:00 88 23 138/62 (87) 100 08/05/20 00:30 98 25 138/47 (77) 100 08/05/20 00:00 Mechanical Ventilator Mechanical Ventilator 08/05/20 00:00 50 08/05/20 00:00 84 28 132/71 (91) 100 08/05/20 00:00 96 08/04/20 23:30 88 18 124/51 (75) 99 08/04/20 23:10 93 30 50 08/04/20 23:00 85 28 122/48 (72) 100 08/04/20 22:00 89 29 131/59 (83) 100 08/04/20 21:00 80 35 131/68 (89) 100 08/04/20 20:00 50 08/04/20 20:00 87 08/04/20 20:00 Mechanical Ventilator Mechanical Ventilator 08/04/20 20:00 99.0 99 26 129/56 (80) 100 08/04/20 19:15 75 27 50 08/04/20 19:00 89 18 127/42 (70) 100 08/04/20 18:00 88 21 129/54 (79) 100 08/04/20 17:02 99.6 95 28 112/64 (80) 100 08/04/20 16:02 97 08/04/20 16:00 50 08/04/20 16:00 Mechanical Ventilator Mechanical Ventilator 08/04/20 16:00 98 25 108/59 (75) 100 08/04/20 15:09 93 30 50 08/04/20 15:00 105 21 126/59 (81) 100 08/04/20 14:00 99 31 124/62 (82) 100 08/04/20 13:00 106 28 116/59 (78) 100 08/04/20 12:00 50 08/04/20 12:00 Mechanical Ventilator Mechanical Ventilator 08/04/20 12:00 99.3 104 25 107/56 (73) 100 08/04/20 11:58 104 08/04/20 11:16 105 34 50 08/04/20 11:00 104 24 103/59 (74) 100 08/04/20 10:00 113 30 111/60 (77) 100 08/04/20 09:11 99.1 Intake and Output 08/04/20 08/05/20 19:00 07:00 Intake Total 660 ml 605 ml Output Total 2000 ml 2100 ml Balance -1340 ml -1495 ml Tube Feeding 660 ml 605 ml Output Urine Total 2000 ml 2100 ml # Bowel Movements 1 3 Height (Feet): 5 Height (Inches): 5.00 Weight (Pounds): 223 General Appearance: lethargic EENT: normal ENT inspection Neck: normal alignment Cardiovascular: normal peripheral pulses, normal rate, regular rhythm Respiratory/Chest: chest wall non-tender, lungs clear, normal breath sounds Abdomen: normal bowel sounds, non tender, soft Extremities: normal inspection Edema: no edema noted Arm (L), no edema noted Arm (R), no edema noted Leg (L), no edema noted Leg (R), no edema noted Pedal (L), no edema noted Pedal (R), no edema noted Generalized Neurologic: motor weakness Skin: normal pigmentation, warm/dry Assessment/Plan Problem List: (1) Hypoxia ICD Codes: R09.02 - Hypoxemia SNOMED: 858931336 (2) Respiratory failure ICD Codes: J96.90 - Respiratory failure, unspecified, unspecified whether with hypoxia or hypercapnia SNOMED: 342083154 (3) Respiratory distress ICD Codes: R06.03 - Acute respiratory distress; J12.82 - Pneumonia due to coronavirus disease 2019 SNOMED: 274527829 (4) Pneumonia due to COVID-19 virus ICD Codes: U07.1 - COVID-19; J12.82 - Pneumonia due to coronavirus disease 2019 SNOMED: 726751936774024649 Status: unchanged Assessment/Plan: vent abx id wean chest tube pulm f/u cbc bmp am ltach Tank Cheng DO Aug 05, 2020 09:10
--- NOTE | 2020-08-05 10:27 | NUR ---
RD ASSESSMENT & RECOMMENDATIONS SEE CARE ACTIVITY FOR COMPLETE ASSESSMENT DAILY ESTIMATED NEEDS: Needs based on Critical care, obesity 11-14kcal/kg actual body wt (140kg) kcals/kg 5907-8266 total kcals 1.5-2.0g prot/kg IBW (64.5kg) g protein/kg 96-129 g total protein 25-30ml/kg abw (83kg) mL/kg 5448-3403 total fluid mLs NUTRITION DIAGNOSIS: Swallowing difficulty R/T respiratory failure as evidenced by pt now s/p trach placement (07/04), NGT to LIS now dc'ed, s/p PEG placement. CURRENT TF:Glucerna 1.2 goal of 55ml/hr ENTERAL NUTRITION RECOMMENDATIONS: Glucerna 1.2 @ 55ml/hr x 24 hrs + Prosource 1pkt BID to provide 1320ml, 1584kcal, 79g+22g prot, 1063ml free water * As medically appropriate, initiate Glucerna 1.2 @ 25ml/hr x 6hrs * Advance 10ml q 4-6 hrs as tolerated to goal rate. * Add Prosource 1pkt BID (additional 22g prot) to meet protein needs * HOB over 30 degrees/ water flush per MD * Feed @goal w/ hemodynamic stability ADDITIONAL RECOMMENDATIONS: * Calibrated bedscale wt * Monitor Propofol rate, need for TF adjustment-> now off * Monitor BGs closely: now improved, on NISS only * NPO/feeding status- TF restarted, titrating to goal NGT to LIS dc'ed, initiate GT feeds in a timely manner if medically * When tolerating TF at goal add prosource BID to better meet est pro needs .
--- NOTE | 2020-08-05 10:56 | Infectious Diseases Prog Note ---
Assessment/Plan Assessment/Plan antibiotics : meropenem, levoquin A 1. covid 19 pneumonia s/p remdesivir s/p solumedrol 2. respiratory failure s/p tracheostomy 3. pseudomonas pneumonia 4. leucocytosis improving 5. serratia sepsis s/p PICC line removal 6. pneumothorax s/p CT placement P 1. d/c iv meropenem 2. continue levoquin 7 more days 3. will follow up cultures Subjective ROS Limited/Unobtainable: Yes Allergies: Coded Allergies: No Known Allergies (Unverified , 05/28/20) Objective Last 24 Hour Vital Signs Date Time Temp Pulse Resp B/P (MAP) Pulse Ox O2 Delivery O2 Flow Rate FiO2 08/05/20 10:00 101 26 132/55 (80) 93 08/05/20 09:00 96 29 125/57 (79) 94 08/05/20 08:00 97.8 85 27 129/65 (86) 93 08/05/20 08:00 79 08/05/20 08:00 Mechanical Ventilator Mechanical Ventilator 08/05/20 08:00 35 08/05/20 07:00 40 08/05/20 07:00 83 28 122/94 (103) 99 08/05/20 06:30 81 31 133/70 (91) 99 08/05/20 06:00 86 30 130/54 (79) 100 08/05/20 05:30 81 25 133/45 (74) 100 08/05/20 05:00 88 30 133/61 (85) 100 08/05/20 04:00 85 31 125/57 (79) 100 08/05/20 04:00 45 08/05/20 04:00 Mechanical Ventilator Mechanical Ventilator 08/05/20 03:48 85 08/05/20 03:30 89 29 136/60 (85) 100 08/05/20 03:15 83 29 45 08/05/20 03:00 86 24 132/56 (81) 100 08/05/20 02:00 87 26 130/56 (80) 100 08/05/20 01:00 88 23 138/62 (87) 100 08/05/20 00:30 98 25 138/47 (77) 100 08/05/20 00:00 Mechanical Ventilator Mechanical Ventilator 08/05/20 00:00 50 08/05/20 00:00 84 28 132/71 (91) 100 08/05/20 00:00 96 08/04/20 23:30 88 18 124/51 (75) 99 08/04/20 23:10 93 30 50 08/04/20 23:00 85 28 122/48 (72) 100 08/04/20 22:00 89 29 131/59 (83) 100 08/04/20 21:00 80 35 131/68 (89) 100 08/04/20 20:00 50 08/04/20 20:00 87 08/04/20 20:00 Mechanical Ventilator Mechanical Ventilator 08/04/20 20:00 99.0 99 26 129/56 (80) 100 08/04/20 19:15 75 27 50 08/04/20 19:00 89 18 127/42 (70) 100 08/04/20 18:00 88 21 129/54 (79) 100 08/04/20 17:02 99.6 95 28 112/64 (80) 100 08/04/20 16:02 97 08/04/20 16:00 50 08/04/20 16:00 Mechanical Ventilator Mechanical Ventilator 08/04/20 16:00 98 25 108/59 (75) 100 08/04/20 15:09 93 30 50 08/04/20 15:00 105 21 126/59 (81) 100 08/04/20 14:00 99 31 124/62 (82) 100 08/04/20 13:00 106 28 116/59 (78) 100 08/04/20 12:00 50 08/04/20 12:00 Mechanical Ventilator Mechanical Ventilator 08/04/20 12:00 99.3 104 25 107/56 (73) 100 08/04/20 11:58 104 08/04/20 11:16 105 34 50 08/04/20 11:00 104 24 103/59 (74) 100 Height (Feet): 5 Height (Inches): 5.00 Weight (Pounds): 223 HEENT: status post trach Current Medications Medications (Trade) Dose Ordered Sig/Zelda Route PRN Reason Start Time Stop Time Status Last Admin Dose Admin Acetaminophen (Tylenol) 650 mg Q4H PRN NG Temp >100.5 07/27/20 03:45 08/26/20 03:44 08/04/20 08:41 Acetaminophen/ Hydrocodone Bitart ([place] 5/325) 1 tab Q4H PRN ORAL Moderate Pain (Pain Scale 4-6) 08/02/20 10:45 08/09/20 10:44 08/03/20 05:24 Calcitonin [place] (Miacalcin) 1 sprays DAILY NASAL 07/22/20 14:00 10/20/20 13:59 08/05/20 08:19 Dextrose (Dextrose 50%) 25 ml Q30M PRN IV Hypoglycemia 06/05/20 10:45 09/03/20 10:44 Dextrose (Dextrose 50%) 50 ml Q30M PRN IV Hypoglycemia 06/05/20 10:45 09/03/20 10:44 Docusate Sodium (Colace) 100 mg EVERY 12 HOURS GT 08/01/20 21:00 08/25/20 17:59 08/04/20 21:03 Enoxaparin Sodium (Lovenox) 100 mg EVERY 12 HOURS SUBQ 08/04/20 09:00 10/15/20 20:59 08/05/20 08:18 Guaifenesin/ Codeine Phosphate (Robitussin with codeine) 5 ml Q6H PRN NG For Cough 07/14/20 14:15 08/13/20 14:14 07/18/20 21:44 Hydromorphone HCl (Dilaudid) 2 mg Q4H PRN IVP Severe Pain (Pain Scale 7-10) 08/05/20 06:45 08/09/20 10:44 Lansoprazole (Prevacid) 30 mg DAILY GT 07/18/20 09:00 08/09/20 08:59 08/05/20 08:17 Levofloxacin (Levaquin) 750 mg DAILY ORAL 08/03/20 12:00 08/10/20 11:59 08/05/20 08:17 Lorazepam (Ativan 2mg/ml 1ml) 1 mg Q4H PRN IV For Anxiety 08/02/20 13:45 08/09/20 13:44 08/02/20 22:19 Meropenem 1 gm/ Sodium Chloride 55 ml @ 110 mls/hr Q8H IVPB 07/22/20 12:00 08/06/20 23:59 08/05/20 04:17 Metoclopramide HCl (Reglan) 10 mg Q6H IVP 08/01/20 18:00 08/31/20 17:59 08/05/20 06:45 Midodrine (Pro-Amatine) 10 mg Q8HR GT 06/30/20 14:00 09/12/20 13:59 08/04/20 13:24 Ondansetron HCl (Zofran) 4 mg Q6H PRN IVP Nausea & Vomiting 08/02/20 10:00 09/01/20 09:59 Polyethylene Glycol (Miralax) 17 gm BEDTIME ORAL 07/26/20 21:00 08/25/20 20:59 08/04/20 21:04 Quetiapine Fumarate (SEROqueL) 75 mg Q8HR GT 08/02/20 14:00 08/30/20 13:59 08/05/20 07:10 Fili Mcelroy MD Aug 05, 2020 10:56
--- NOTE | 2020-08-05 11:00 | NUR ---
ABG drawn at this time. Results reported to YOUSIF ELLINGTON. / AMY ELLINGTON.
--- NOTE | 2020-08-05 11:26 | NUR ---
RESPIRATORY NOTE: FiO2 increased to 40% post ABG result. YOUSIF ELLINGTON aware. Will continue to closely monitor.
--- NOTE | 2020-08-05 11:27 | NUR ---
NURSE NOTES: Informed ZULLY Roth ABG results. Will order diamox. Will follow up.
--- NOTE | 2020-08-05 12:02 | Nephrology Progress Note ---
Assessment/Plan Problem List: (1) DEVENDRA (acute kidney injury) (2) Morbid obesity (3) Diabetes mellitus out of control (4) Pneumonia due to COVID-19 virus (5) Respiratory failure Assessment Acute renal failure Obstructive uropathy, clogged [place] Respiratory failure COVID-19 pneumonia Morbid obesity Plan August 05: Status unchanged. No new labs for today.. Patient full code. Continue per consultants. Stable from renal standpoint of view. August 04: Status unchanged. Labs reviewed. Low magnesium addressed. Patient full code. Continue per consultants. August 03: Status quo. Labs reviewed. Renal parameters stable. Patient full code. Continue per pulmonary. August 02: Continues to have chest tube. Full code. Trach and vent. PEG. Renal parameters stable. August 01: Status quo. Leukocytosis resolved. Renal parameters stable. Continues to be vented through trach. Has PEG. Continue per consultants. Patient is full code. July 31: Chest tube was right reinserted on the right side. Patient remains trached on vent. Leukocytosis worsened . Renal parameters unchanged. Continue per current treatment plan. July 30: Status quo. Labs reviewed. Medication list reviewed. Stable from renal standpoint of view. Patient is full code, trached and vent, also has PEG. July 29: Status quo. Discussed with RN. Labs and medication list reviewed. Stable from renal standpoint of view. July 28: Full code. Labs reviewed. Abnormal electrolytes addressed. Medication list reviewed. Patient has trach and PEG and on ventilator. Continue per consultants. July 27: Full code. In ICU. Trach to vent. Labs reviewed. Renal parameters and electrolytes stable. July 26: Remains in ICU. Remains full code. Trach to vent. Labs reviewed. Abnormal electrolytes addressed. Continue per consultants. July 25: Seen in ICU. Received PEG yesterday. Has trach connected to vent. Full code. Labs reviewed. Albumin bolus given. IV started on table feeding vi a GT tube initiated. July 24: Patient seen in ICU. Status quo. Has trach. Being ventilated. Has right chest tube. Labs reviewed. Continue per consultants. Low magnesium and low phosphorus replaced. July 23: Patient seen in ICU. Discussed with RN. Yesterday the patient developed tension pneumothorax. Patient has a chest tube today. Labs reviewed. Renal parameters stable. Medication list reviewed. July 22: Status quo. Labs reviewed. Serum calcium elevated. Vitamin D discontinued. Pamidronate 60 mg IV given. Continue to monitor calcium and phosphorus. Patient due for PEG today. July 21: Status quo. Awake responsive. Labs reviewed. Medication list reviewed. Stable from renal standpoint of view. Due for PEG tomorrow. Continue her current management. July 20: Status quo. PEG procedure deferred to July 22. Patient remains full code. Abnormal electrolytes addressed. FiO2 50% unchanged. Continue per consultants. July 19: Status quo. Due for PEG insertion today. Remains full code. Trach and vent. Low magnesium addressed. Continue per consultants. FiO2 50%. July 18: Status quo. Labs reviewed. Low potassium addressed. Continue per consultants. Remains full code. July 17: Remains full code. Trach to vent. FiO2 40%. Labs reviewed. Low potassium addressed. Continue per consultants. July 16: Status quo. FiO2 45%. Discussed with RN. Continue to taper her mind altering medications and sedatives. Stable from renal standpoint of view. Abnormal electrolytes addressed. July 15: Full code. FiO2 50%. Intubated on ventilator. No labs drawn today. Continue per consultants. July 14: Status quo. FiO2 50%. Labs reviewed. Renal parameters stable. Continue per current treatment plan and consultants. Medication list reviewed. July 13: FiO2 60% unchanged. Labs reviewed. Renal parameters stable. Medication list reviewed. Continue per consultants. July 12: Full code. Labs reviewed. Normal electrolytes addressed. Continue per pulmonary. Medication list reviewed. July 11: Remains full code. On ventilator. FiO2 down to 65%. Renal parameters stable. Low magnesium addressed. Continue her current management. July 10: Full code. On ventilator. FiO2 70%. Hemoglobin mid sevens. Renal parameters stable. Continue per consultants. July 09: Labs reviewed. Renal parameters stable. FiO2 80% unchanged. Continue per pulmonary. July 08: Labs reviewed. Renal parameters and electrolytes stable. ABG suggestive of high PCO2. At this time patient is on FiO2 of 80%. Continue per pulmonary. Continue to monitor renal parameters. July 07: No CHEM panel drawn today. More potassium given. Continue to monitor renal parameters. Continue per consultants. Discussed with RAKEL Veras. July 06: Low potassium addressed. Albumin bolus for low BP given. Patient remains full code. Continue to monitor electrolytes and renal parameters. Continue per consultants. Hemoglobin low today, transfusion per sports editor. July 05: Trach to vent. FiO2 80%. Renal parameters stable. PCO2 remains high at 44. Continue to monitor renal parameters. July 04: Patient now trach. Full code. Labs reviewed. Renal parameters stable. Low magnesium addressed. July 03: Intubated. Full code. Labs reviewed. Abnormal electrolytes addressed. Continue per consultants. Overall status unchanged. July 02: Remains intubated. Remains full code. Remains on FiO2 of 70%. Labs reviewed. Abnormal electrolytes addressed. Continue per pulmonary. July 01: Remains on 70% FiO2. Full code. Intubated on ventilator. Retaining CO2. Discussed with RN. Will do ABG today. Albumin bolus given. 1 dose of Diamox given. June 30: Status quo. Labs reviewed. Abnormal electrolytes addressed. Remains full code. Remains on ventilator. Magnesium sulfate 4 gram IVPB given. June 29: Full code. Intubated on ventilator. Labs reviewed. Stable from renal standpoint of view. Continue per consultants. June 28: Remains full code. Remains intubated on ventilator. Labs reviewed. Vitamin D supplement ordered. Continue to monitor renal parameters. Continue per consultants. June 27: Remains full code. Intubated on ventilator. Labs reviewed. Abnormal electrolyte addressed. Continue to monitor renal parameters and electrolytes. Continue per consultants. June 26: Labs reviewed. Remains full code. Remains intubated. Back on NGT feeding. Continue to monitor renal parameters. June 25: Labs reviewed. Renal parameters stable. Remains full code. Due to positional status patient could not be fed via NG tube. Starting TPN? Is being entertained. Continue per consultants. June 24: Labs reviewed. Renal parameters stable. Remains full code. Remains intubated on ventilator. Continue per consultants. June 23: Labs reviewed. Renal parameters stable. Discussed with RN. Abnormal electrolyte addressed. Remains full code. Remains on ventilator. Continue per consultants. June 22: Labs reviewed. Low potassium addressed. Discussed with RAKEL Moran. Patient full code. Remains on ventilator. Continue to monitor renal parameters. June 21. Labs reviewed. Abnormal electrolyte addressed. Full code. Remains on ventilator. Medication list reviewed. Continue per pulmonary management. DC IV fluid, resume Lasix daily, check chest x-ray. June 20: Labs reviewed. Abnormal electrolytes. Patient remains full code. Continue per consultants. Noted and addressed June 19: Labs reviewed. Abnormal electrolytes noted and addressed. Remains intubated on ventilator. Remains full code. June 18: Labs reviewed. Remains intubated on ventilator. Full code. Abnormal electrolyte addressed. Continue as is. June 17: Labs reviewed. Abnormal electrolytes addressed. Patient remains full code and intubated on ventilator. Continue per consultants. Renal parameters are within normal limits. June 16: Labs reviewed. Potassium chloride replaced. Remains full code. Remains intubated on ventilator. Continue per consultants. Continue to monitor renal parameters. June 15: Labs reviewed. Serum creatinine 1. Stable from renal standpoint to view. Continue per consultants. June 14: Labs reviewed. Full code. Serum creatinine of 3.5 down to 1.4. Low potassium addressed. Continue per current treatment plan. Continue to monitor renal parameters. Midodrine started. Albumin bolus given. Previously: DC Lasix drip Increase Protonix dose Monitor renal parameters, electrolytes Per orders Subjective ROS Limited/Unobtainable: Yes Objective Objective Last 24 Hour Vital Signs Date Time Temp Pulse Resp B/P (MAP) Pulse Ox O2 Delivery O2 Flow Rate FiO2 08/05/20 11:00 98 26 125/70 (88) 96 08/05/20 10:00 101 26 132/55 (80) 93 08/05/20 09:00 96 29 125/57 (79) 94 08/05/20 08:00 97.8 85 27 129/65 (86) 93 08/05/20 08:00 79 08/05/20 08:00 Mechanical Ventilator Mechanical Ventilator 08/05/20 08:00 35 08/05/20 07:00 40 08/05/20 07:00 83 28 122/94 (103) 99 08/05/20 06:30 81 31 133/70 (91) 99 08/05/20 06:00 86 30 130/54 (79) 100 08/05/20 05:30 81 25 133/45 (74) 100 08/05/20 05:00 88 30 133/61 (85) 100 08/05/20 04:00 85 31 125/57 (79) 100 08/05/20 04:00 45 08/05/20 04:00 Mechanical Ventilator Mechanical Ventilator 08/05/20 03:48 85 08/05/20 03:30 89 29 136/60 (85) 100 08/05/20 03:15 83 29 45 3/15/21 03:00 86 24 132/56 (81) 100 08/05/20 02:00 87 26 130/56 (80) 100 08/05/20 01:00 88 23 138/62 (87) 100 08/05/20 00:30 98 25 138/47 (77) 100 08/05/20 00:00 Mechanical Ventilator Mechanical Ventilator 08/05/20 00:00 50 08/05/20 00:00 84 28 132/71 (91) 100 08/05/20 00:00 96 08/04/20 23:30 88 18 124/51 (75) 99 08/04/20 23:10 93 30 50 08/04/20 23:00 85 28 122/48 (72) 100 08/04/20 22:00 89 29 131/59 (83) 100 08/04/20 21:00 80 35 131/68 (89) 100 08/04/20 20:00 50 08/04/20 20:00 87 08/04/20 20:00 Mechanical Ventilator Mechanical Ventilator 08/04/20 20:00 99.0 99 26 129/56 (80) 100 08/04/20 19:15 75 27 50 08/04/20 19:00 89 18 127/42 (70) 100 08/04/20 18:00 88 21 129/54 (79) 100 08/04/20 17:02 99.6 95 28 112/64 (80) 100 08/04/20 16:02 97 08/04/20 16:00 50 08/04/20 16:00 Mechanical Ventilator Mechanical Ventilator 08/04/20 16:00 98 25 108/59 (75) 100 08/04/20 15:09 93 30 50 08/04/20 15:00 105 21 126/59 (81) 100 08/04/20 14:00 99 31 124/62 (82) 100 08/04/20 13:00 106 28 116/59 (78) 100 08/04/20 12:00 50 08/04/20 12:00 Mechanical Ventilator Mechanical Ventilator 08/04/20 12:00 99.3 104 25 107/56 (73) 100 Intake and Output 08/04/20 08/05/20 19:00 07:00 Intake Total 660 ml 660 ml Output Total 2000 ml 2200 ml Balance -1340 ml -1540 ml Tube Feeding 660 ml 660 ml Output Urine Total 2000 ml 2200 ml # Bowel Movements 1 3 Current Medications Medications (Trade) Dose Ordered Sig/Zelda Route PRN Reason Start Time Stop Time Status Last Admin Dose Admin Acetaminophen (Tylenol) 650 mg Q4H PRN NG Temp >100.5 07/27/20 03:45 08/26/20 03:44 08/04/20 08:41 Acetaminophen/ Hydrocodone Bitart ([place] 5/325) 1 tab Q4H PRN ORAL Moderate Pain (Pain Scale 4-6) 08/02/20 10:45 08/09/20 10:44 08/03/20 05:24 Acetazolamide (Diamox) 250 mg Q6HR GT 08/05/20 12:00 08/07/20 06:01 08/05/20 11:50 Calcitonin Adrian (Miacalcin) 1 sprays DAILY NASAL 07/22/20 14:00 10/20/20 13:59 08/05/20 08:19 Dextrose (Dextrose 50%) 25 ml Q30M PRN IV Hypoglycemia 06/05/20 10:45 09/03/20 10:44 Dextrose (Dextrose 50%) 50 ml Q30M PRN IV Hypoglycemia 06/05/20 10:45 09/03/20 10:44 Docusate Sodium (Colace) 100 mg EVERY 12 HOURS GT 08/01/20 21:00 08/25/20 17:59 08/04/20 21:03 Enoxaparin Sodium (Lovenox) 100 mg EVERY 12 HOURS SUBQ 08/04/20 09:00 10/15/20 20:59 08/05/20 08:18 Guaifenesin/ Codeine Phosphate (Robitussin with codeine) 5 ml Q6H PRN NG For Cough 07/14/20 14:15 08/13/20 14:14 07/18/20 21:44 Hydromorphone HCl (Dilaudid) 2 mg Q4H PRN IVP Severe Pain (Pain Scale 7-10) 08/05/20 06:45 08/09/20 10:44 Lansoprazole (Prevacid) 30 mg DAILY GT 07/18/20 09:00 08/09/20 08:59 08/05/20 08:17 Levofloxacin (Levaquin) 750 mg DAILY ORAL 08/03/20 12:00 08/10/20 11:59 08/05/20 08:17 Lorazepam (Ativan 2mg/ml 1ml) 1 mg Q4H PRN IV For Anxiety 08/02/20 13:45 08/09/20 13:44 08/02/20 22:19 Metoclopramide HCl (Reglan) 10 mg Q6H IVP 08/01/20 18:00 08/31/20 17:59 08/05/20 11:50 Midodrine (Pro-Amatine) 10 mg Q8HR GT 06/30/20 14:00 09/12/20 13:59 08/04/20 13:24 Ondansetron HCl (Zofran) 4 mg Q6H PRN IVP Nausea & Vomiting 08/02/20 10:00 09/01/20 09:59 Polyethylene Glycol (Miralax) 17 gm BEDTIME ORAL 07/26/20 21:00 08/25/20 20:59 08/04/20 21:04 Quetiapine Fumarate (SEROqueL) 75 mg Q8HR GT 08/02/20 14:00 08/30/20 13:59 08/05/20 07:10 Laboratory Tests 08/05/20 11:00: Arterial Blood pH 7.517H, Arterial Blood Partial Pressure CO2 59.5*H, Arterial Blood Partial Pressure O2 55.0L, Arterial Blood HCO3 47.2*H, Arterial Blood Oxygen Saturation 88.2*L, Arterial Blood Base Excess 21.5*H, Jeremiah Test Positive Height (Feet): 5 Height (Inches): 5.00 Weight (Pounds): 223 General Appearance: no apparent distress EENT: other - Trach to vent Cardiovascular: tachycardia Respiratory/Chest: decreased breath sounds Abdomen: distended Rigo Tyler MD Aug 05, 2020 12:02
--- NOTE | 2020-08-05 13:30 | NUR ---
NURSE NOTES: Seen by Dr. Burger and assessed patient.
--- NOTE | 2020-08-05 13:52 | Diagnostic Imaging Report ---
Indication: Dyspnea Technique: One view of the chest Comparison: 08/02/2020 Findings: Tracheostomy is again demonstrated. Bilateral infiltrates versus edema again demonstrated. Right chest vent catheter is again demonstrated. No definite pneumothorax currently. Findings are unchanged Impression: Unchanged, over 3 days, findings as above.
--- NOTE | 2020-08-05 13:54 | General Progress Note ---
Subjective ROS Limited/Unobtainable: No Allergies: Coded Allergies: No Known Allergies (Unverified , 05/28/20) Subjective vomited again had BM no GT residuals Objective Last 24 Hour Vital Signs Date Time Temp Pulse Resp B/P (MAP) Pulse Ox O2 Delivery O2 Flow Rate FiO2 08/05/20 12:00 Mechanical Ventilator Mechanical Ventilator 08/05/20 12:00 98.0 85 30 128/60 (82) 100 08/05/20 12:00 89 08/05/20 12:00 40 08/05/20 11:00 98 26 125/70 (88) 96 08/05/20 10:00 101 26 132/55 (80) 93 08/05/20 09:00 96 29 125/57 (79) 94 08/05/20 08:00 97.8 85 27 129/65 (86) 93 08/05/20 08:00 79 08/05/20 08:00 Mechanical Ventilator Mechanical Ventilator 08/05/20 08:00 35 08/05/20 07:00 40 08/05/20 07:00 83 28 122/94 (103) 99 08/05/20 06:30 81 31 133/70 (91) 99 08/05/20 06:00 86 30 130/54 (79) 100 08/05/20 05:30 81 25 133/45 (74) 100 08/05/20 05:00 88 30 133/61 (85) 100 08/05/20 04:00 85 31 125/57 (79) 100 08/05/20 04:00 45 08/05/20 04:00 Mechanical Ventilator Mechanical Ventilator 08/05/20 03:48 85 08/05/20 03:30 89 29 136/60 (85) 100 08/05/20 03:15 83 29 45 08/05/20 03:00 86 24 132/56 (81) 100 08/05/20 02:00 87 26 130/56 (80) 100 08/05/20 01:00 88 23 138/62 (87) 100 08/05/20 00:30 98 25 138/47 (77) 100 08/05/20 00:00 Mechanical Ventilator Mechanical Ventilator 08/05/20 00:00 50 08/05/20 00:00 84 28 132/71 (91) 100 08/05/20 00:00 96 08/04/20 23:30 88 18 124/51 (75) 99 08/04/20 23:10 93 30 50 08/04/20 23:00 85 28 122/48 (72) 100 08/04/20 22:00 89 29 131/59 (83) 100 08/04/20 21:00 80 35 131/68 (89) 100 08/04/20 20:00 50 08/04/20 20:00 87 08/04/20 20:00 Mechanical Ventilator Mechanical Ventilator 08/04/20 20:00 99.0 99 26 129/56 (80) 100 08/04/20 19:15 75 27 50 08/04/20 19:00 89 18 127/42 (70) 100 08/04/20 18:00 88 21 129/54 (79) 100 08/04/20 17:02 99.6 95 28 112/64 (80) 100 08/04/20 16:02 97 08/04/20 16:00 50 08/04/20 16:00 Mechanical Ventilator Mechanical Ventilator 08/04/20 16:00 98 25 108/59 (75) 100 08/04/20 15:09 93 30 50 08/04/20 15:00 105 21 126/59 (81) 100 08/04/20 14:00 99 31 124/62 (82) 100 Intake and Output 08/04/20 08/05/20 19:00 07:00 Intake Total 660 ml 660 ml Output Total 2000 ml 2200 ml Balance -1340 ml -1540 ml Tube Feeding 660 ml 660 ml Output Urine Total 2000 ml 2200 ml # Bowel Movements 1 3 Laboratory Tests 08/05/20 11:00: Arterial Blood pH 7.517H, Arterial Blood Partial Pressure CO2 59.5*H, Arterial Blood Partial Pressure O2 55.0L, Arterial Blood HCO3 47.2*H, Arterial Blood Oxygen Saturation 88.2*L, Arterial Blood Base Excess 21.5*H, Jeremiah Test Positive Height (Feet): 5 Height (Inches): 5.00 Weight (Pounds): 223 General Appearance: no apparent distress EENT: normal ENT inspection Neck: supple Cardiovascular: normal rate Respiratory/Chest: decreased breath sounds Abdomen: normal bowel sounds, non tender, soft Extremities: non-tender Assessment/Plan Problem List: (1) Morbid obesity ICD Codes: E66.01 - Morbid (severe) obesity due to excess calories SNOMED: 068350035 (2) DEVENDRA (acute kidney injury) ICD Codes: N17.9 - Acute kidney failure, unspecified SNOMED: 6651527, 44616809 (3) Diabetes mellitus out of control ICD Codes: E11.65 - Type 2 diabetes mellitus with hyperglycemia SNOMED: 42577656, 839390105 (4) Pneumonia due to COVID-19 virus ICD Codes: U07.1 - COVID-19; J12.82 - Pneumonia due to coronavirus disease 2019 SNOMED: 979881448908293035 (5) Hypoxia ICD Codes: R09.02 - Hypoxemia SNOMED: 292803898 (6) Respiratory failure ICD Codes: J96.90 - Respiratory failure, unspecified, unspecified whether with hypoxia or hypercapnia SNOMED: 207740524 Status: unchanged Assessment/Plan: s/p PEG GTF colace miralax zofran reglan will Ryan Dubose MD Aug 05, 2020 13:54
--- NOTE | 2020-08-05 14:17 | NUR ---
NURSE NOTES: Seen by Dr. Devine and assessed patient. He said he will take out chest tube tomorrow if chest xray looks okay.
--- NOTE | 2020-08-05 14:49 | Cardiac Electrophysiology PN ---
Assessment/Plan Assessment/Plan 1. Respiratory failure due to COVID-19 pneumonia. On tracheostomy on 50 % Fio2. Trach exchanged 07/22/[address] Devine Echo EF 60% 2. S/P Code x2 with hypotension and sammy arrest on 07/22/20 likely due to Pneumothorax. HR stable 3. Right Pneumothorax, S/P chest tube placement. Removed 07/29/20 Thoravent placed 07/30/20 to water seal 4. Hypotension, on midodrine 10 mg 3 times daily and off pressors 5. Dysphagia. S/P PEG 07/24/20 6. Right lower extremity DVT. Follow up by Hematology. 7. Severe anemia, S/P PRBC 8. Low Mg, replaced TOAN RN and Dr Devine Subjective Subjective Coded twice for hypotension and bradycardia while on the Vent about 20 minutes after tracheostomy was changed 07/22/20 Found to have Right Pneumothorax and underwent Right chest tube placement by Dr. Devine S/P PRBC. S/P PEG 07/24/20. Chest tube removed 07/29/20 Thora vent placed by Dr. Devine 07/30/20 to water seal In ICU on the Vent on 40 % Fio2 and PEEP 5 In SR. Off pressors Objective Last 24 Hour Vital Signs Date Time Temp Pulse Resp B/P (MAP) Pulse Ox O2 Delivery O2 Flow Rate FiO2 08/05/20 14:00 85 28 118/48 (71) 100 08/05/20 13:00 89 29 119/50 (73) 100 08/05/20 12:00 Mechanical Ventilator Mechanical Ventilator 08/05/20 12:00 98.0 85 30 128/60 (82) 100 08/05/20 12:00 89 08/05/20 12:00 40 08/05/20 11:00 98 26 125/70 (88) 96 08/05/20 10:00 101 26 132/55 (80) 93 08/05/20 09:00 96 29 125/57 (79) 94 08/05/20 08:00 97.8 85 27 129/65 (86) 93 08/05/20 08:00 79 08/05/20 08:00 Mechanical Ventilator Mechanical Ventilator 08/05/20 08:00 35 08/05/20 07:00 40 08/05/20 07:00 83 28 122/94 (103) 99 08/05/20 06:30 81 31 133/70 (91) 99 08/05/20 06:00 86 30 130/54 (79) 100 08/05/20 05:30 81 25 133/45 (74) 100 08/05/20 05:00 88 30 133/61 (85) 100 08/05/20 04:00 85 31 125/57 (79) 100 08/05/20 04:00 45 08/05/20 04:00 Mechanical Ventilator Mechanical Ventilator 08/05/20 03:48 85 08/05/20 03:30 89 29 136/60 (85) 100 08/05/20 03:15 83 29 45 08/05/20 03:00 86 24 132/56 (81) 100 08/05/20 02:00 87 26 130/56 (80) 100 08/05/20 01:00 88 23 138/62 (87) 100 08/05/20 00:30 98 25 138/47 (77) 100 08/05/20 00:00 Mechanical Ventilator Mechanical Ventilator 08/05/20 00:00 50 08/05/20 00:00 84 28 132/71 (91) 100 08/05/20 00:00 96 08/04/20 23:30 88 18 124/51 (75) 99 08/04/20 23:10 93 30 50 08/04/20 23:00 85 28 122/48 (72) 100 08/04/20 22:00 89 29 131/59 (83) 100 08/04/20 21:00 80 35 131/68 (89) 100 08/04/20 20:00 50 08/04/20 20:00 87 08/04/20 20:00 Mechanical Ventilator Mechanical Ventilator 08/04/20 20:00 99.0 99 26 129/56 (80) 100 08/04/20 19:15 75 27 50 08/04/20 19:00 89 18 127/42 (70) 100 08/04/20 18:00 88 21 129/54 (79) 100 08/04/20 17:02 99.6 95 28 112/64 (80) 100 08/04/20 16:02 97 08/04/20 16:00 50 08/04/20 16:00 Mechanical Ventilator Mechanical Ventilator 08/04/20 16:00 98 25 108/59 (75) 100 08/04/20 15:09 93 30 50 08/04/20 15:00 105 21 126/59 (81) 100 Intake and Output 08/04/20 08/05/20 19:00 07:00 Intake Total 660 ml 660 ml Output Total 2000 ml 2200 ml Balance -1340 ml -1540 ml Tube Feeding 660 ml 660 ml Output Urine Total 2000 ml 2200 ml # Bowel Movements 1 3 Laboratory Tests Test 08/05/20 11:00 Arterial Blood pH 7.517 (7.350-7.450) Arterial Blood Partial Pressure CO2 59.5 mmHg (35.0-45.0) *H Arterial Blood Partial Pressure O2 55.0 mmHg (75.0-100.0) L Arterial Blood HCO3 47.2 mmol/L (22.0-26.0) *H Arterial Blood Oxygen Saturation 88.2 % (95-100) *L Arterial Blood Base Excess 21.5 (-2-2) *H Jeremiah Test Positive Objective HEAD AND NECK: Status post tracheostomy LUNGS: Coarse rhonchi. Right ThoraVent in place CARDIOVASCULAR: Regular S1 and S2 with no gallop. ABDOMEN: Soft.S/P PEG EXTREMITIES: 1+ pitting edema. Hill Burger MD Aug 05, 2020 14:49
--- NOTE | 2020-08-05 14:54 | Surgery Progress Note ---
Surgery Progress Note Subjective Procedure Performed right tube chest tube insertion Symptoms: improved, tolerating diet Additional Comments cxr okay will plan tube removal soon Objective Last 24 Hour Vital Signs Date Time Temp Pulse Resp B/P (MAP) Pulse Ox O2 Delivery O2 Flow Rate FiO2 08/05/20 14:00 85 28 118/48 (71) 100 08/05/20 13:00 89 29 119/50 (73) 100 08/05/20 12:00 Mechanical Ventilator Mechanical Ventilator 08/05/20 12:00 98.0 85 30 128/60 (82) 100 08/05/20 12:00 89 08/05/20 12:00 40 08/05/20 11:00 98 26 125/70 (88) 96 08/05/20 10:00 101 26 132/55 (80) 93 08/05/20 09:00 96 29 125/57 (79) 94 08/05/20 08:00 97.8 85 27 129/65 (86) 93 08/05/20 08:00 79 08/05/20 08:00 Mechanical Ventilator Mechanical Ventilator 08/05/20 08:00 35 08/05/20 07:00 40 08/05/20 07:00 83 28 122/94 (103) 99 08/05/20 06:30 81 31 133/70 (91) 99 08/05/20 06:00 86 30 130/54 (79) 100 08/05/20 05:30 81 25 133/45 (74) 100 08/05/20 05:00 88 30 133/61 (85) 100 08/05/20 04:00 85 31 125/57 (79) 100 08/05/20 04:00 45 08/05/20 04:00 Mechanical Ventilator Mechanical Ventilator 08/05/20 03:48 85 08/05/20 03:30 89 29 136/60 (85) 100 08/05/20 03:15 83 29 45 08/05/20 03:00 86 24 132/56 (81) 100 08/05/20 02:00 87 26 130/56 (80) 100 08/05/20 01:00 88 23 138/62 (87) 100 08/05/20 00:30 98 25 138/47 (77) 100 08/05/20 00:00 Mechanical Ventilator Mechanical Ventilator 08/05/20 00:00 50 08/05/20 00:00 84 28 132/71 (91) 100 08/05/20 00:00 96 08/04/20 23:30 88 18 124/51 (75) 99 08/04/20 23:10 93 30 50 08/04/20 23:00 85 28 122/48 (72) 100 08/04/20 22:00 89 29 131/59 (83) 100 08/04/20 21:00 80 35 131/68 (89) 100 08/04/20 20:00 50 08/04/20 20:00 87 08/04/20 20:00 Mechanical Ventilator Mechanical Ventilator 08/04/20 20:00 99.0 99 26 129/56 (80) 100 08/04/20 19:15 75 27 50 08/04/20 19:00 89 18 127/42 (70) 100 08/04/20 18:00 88 21 129/54 (79) 100 08/04/20 17:02 99.6 95 28 112/64 (80) 100 08/04/20 16:02 97 08/04/20 16:00 50 08/04/20 16:00 Mechanical Ventilator Mechanical Ventilator 08/04/20 16:00 98 25 108/59 (75) 100 08/04/20 15:09 93 30 50 08/04/20 15:00 105 21 126/59 (81) 100 I&O Intake and Output 08/04/20 08/05/20 19:00 07:00 Intake Total 660 ml 660 ml Output Total 2000 ml 2200 ml Balance -1340 ml -1540 ml Tube Feeding 660 ml 660 ml Output Urine Total 2000 ml 2200 ml # Bowel Movements 1 3 Dressing: saturated Cardiovascular: RSR Respiratory: decreased breath sounds Abdomen: soft, non-tender, present bowel sounds Extremities: no tenderness, no cyanosis Laboratory Tests Test 08/05/20 11:00 Arterial Blood pH 7.517 (7.350-7.450) Arterial Blood Partial Pressure CO2 59.5 mmHg (35.0-45.0) *H Arterial Blood Partial Pressure O2 55.0 mmHg (75.0-100.0) L Arterial Blood HCO3 47.2 mmol/L (22.0-26.0) *H Arterial Blood Oxygen Saturation 88.2 % (95-100) *L Arterial Blood Base Excess 21.5 (-2-2) *H Jeremiah Test Positive Plan Problems: (1) Respiratory distress (2) Respiratory failure Assessment & Plan: 50-year-old female Covid positive respiratory insufficiency intubated on ventilatory support declining. Leukocytosis increase oxygen requirement. Vent settings per pulmonology reviewed identified and agree. Unfortunately further surgical invention at this time is not appropriate as patient is not a candidate and her current condition. Prognosis overall guarded. Tracheostomy can be considered in the future if recovering or shows improvement and requires unable to be weaned from ventilator support. Currently okay for nutritional optimization with NG tube. Will need significant monitoring for decubitus formation given patient's size and condition. Okay for air mattress tolerated. Turn every 2 hours as tolerated. Patient is otherwise critically ill and blood pressure labile. Will need to monitor closely.Bilateral infiltrates are again demonstrated. Stable tube and line positions. will need trach will need to wean vent first no cuff leak trach okay Improving weaning well DC planning placement much improved peg placement trach changed acls now resuscitated (3) Hypoxia (4) Pneumonia due to COVID-19 virus Assessment & Plan: ++ as per pulm and ID (5) Diabetes mellitus out of control Assessment & Plan: DAILY ESTIMATED NEEDS: Needs based on Critical care, obesity 11-14kcal/kg actual body wt (140kg) kcals/kg 0388-2849 total kcals 1.5-2.0g prot/kg IBW (64.5kg) g protein/kg 96-129 g total protein 25-30ml/kg abw (83kg) mL/kg 3371-9446 total fluid mLs NUTRITION DIAGNOSIS: Swallowing difficulty R/T respiratory failure as evidenced by pt orally intubated and sedated, on OGT feeds. CURRENT TF: Vital 1.2 goal of 60ml/hr ENTERAL NUTRITION RECOMMENDATIONS: Vital AF 1.2 @ 60ml/hr x 24 hrs to provide 1440ml, 1728kcal, 108g prot, 1168ml free water * Maintain current critical care and carb controlled TF formula of Vital AF * TF @ goal meeds 100% est kcal/prot needs * HOB over 30 degrees/ water flush per TF may be lowered to 55ml/hr for improved BG control while maintaining Kcal and pro needs. ADDITIONAL RECOMMENDATIONS: * Calibrated bedscale wt * Monitor Propofol rate, need for TF adjustment-> now off * Monitor BGs closely : now improved, on novolog q 6rs + NISS * Monitor lytes- K elevated, monitor need for TF change * Rec bowel regimen- now w/ rectal tube . (6) Pneumothorax on right Assessment & Plan: right tension pneumothorax trach changed for cuff leak and decreased volumes pressures high after and ptx tension acls resuscitated right chest tube placed ptx resolved cont chest tube to suction am cxr wean vent Right chest tube, tracheostomy, nasogastric tube remain. Previously demonstrated subcutaneous emphysema has nearly completely cleared, with only questionably small residual in the left supraclavicular fossa. Extensive bilateral infiltrates persist. There is no pneumothorax currently. The heart is borderline enlarged. Pneumoperitoneum persists, may be slightly decreased Impression: Markedly improved subcutaneous emphysema Unchanged bilateral infiltrates Persistent but perhaps slightly decreased pneumoperitoneum chest tube removed 07/29 f/u cxr new chest tube 07/30 tolerating tube feeds no n/v weaning vent well cxr reviewed tube okay no large ptx stable cont chest tube to water seal (7) DEVENDRA (acute kidney injury) (8) Morbid obesity Az Devine Aug 05, 2020 14:54
--- NOTE | 2020-08-05 15:31 | NUR ---
INTERMEDIATE ACCOUNTANT NOTES SPOKE WITH GARETT FROM [facility], MADE AWARE OF DCP. INQUIRY FAXED TO [facility], [email or web address] AND [facility] WILL FOLLOW UP WITH ACCEPTANCE. FACILITIES REQUESTED RECENT COVID RESULTS. COVID ORDERED. Addendum: 08/05/20 at 1809 by NICOL CHAWLA RN CM PT POSSIBLE ACCEPTED TO [facility] PENDING AUTHORIZATION FROM THE INSURANCE COMPANY.
--- NOTE | 2020-08-05 15:43 | NUR ---
INSURANCE CLINICALS FAXED TO [facility] [place] T: [phone] EXT [phone] F: [phone]
--- NOTE | 2020-08-05 17:20 | NUR ---
NURSE NOTES: Bed bath given. Kept dry, clean and comfortable.
[2020-08-05] MEDS: Miralax 17gm pkt ORAL SCH (21:13)
[2020-08-06] VITALS (35 sets, daily range): BP systolic 97–150; BP diastolic 46–107
[2020-08-06] MEDS: Metoclopramide 10mg/2ml Inj IVP SCH ×4 (00:35→18:11)
[2020-08-06] MEDS: Midodrine 10mg tab GT SCH (06:00)
[2020-08-06 06:09] LABS: BASOPHILS % (AUTO) 0.8 % (0.0-2.0); EOSINOPHILS % (AUTO) 10.8 % (0.0-3.0); HEMATOCRIT 31.5 % (37.0-47.0); HEMOGLOBIN 9.6 G/DL (12.0-16.0); MEAN CORPUSCULAR VOLUME 94 FL (80-99); MONOCYTES % (AUTO) 7.9 % (1.0-10.0); NEUTROPHILS % (AUTO) 58.5 % (45.0-75.0); PLATELET COUNT 266 K/UL (150-450); RED BLOOD COUNT 3.36 M/UL (4.20-5.40); RED CELL DISTRIBUTION WIDTH 18.4 % (11.6-14.8); WHITE BLOOD COUNT 10.9 K/UL (4.8-10.8)
[2020-08-06 06:26] LABS: CALCIUM 10.9 MG/DL (8.5-10.1); CREATININE 1.1 MG/DL (0.55-1.30); POTASSIUM 3.7 MMOL/L (3.5-5.1)
[2020-08-06] MEDS: Docusate 100mg/10ml Liq GT SCH ×2 (08:30→20:32)
[2020-08-06] MEDS: Levofloxacin 750mg tab ORAL SCH (08:30)
[2020-08-06] MEDS: Enoxaparin 100mg Inj SUBQ SCH ×2 (08:33→20:43)
--- NOTE | 2020-08-06 09:25 | Pulmonology Progress Note ---
Subjective ROS Limited/Unobtainable: No Interval Events: Chest tube removed (07/29), Thoravent(07/30) Constitutional: Reports: fever, other - Poyi=[id number] HEENT: Repors: no symptoms Respiratory: Reports: no symptoms Cardiovascular: Reports: no symptoms Gastrointestinal/Abdominal: Reports: vomiting Genitourinary: Reports: no symptoms Allergies: Coded Allergies: No Known Allergies (Unverified , 05/28/20) All Systems: reviewed and negative except above Objective Last 24 Hour Vital Signs Date Time Temp Pulse Resp B/P (MAP) Pulse Ox O2 Delivery O2 Flow Rate FiO2 08/06/20 09:00 96 0 123/67 (85) 100 08/06/20 08:00 35 08/06/20 08:00 92 08/06/20 08:00 99.3 88 29 116/47 (70) 100 08/06/20 07:00 101 24 121/60 (80) 98 08/06/20 06:30 98 27 150/65 (93) 99 08/06/20 06:00 96 27 147/70 (95) 100 08/06/20 05:30 95 24 143/76 (98) 100 08/06/20 05:12 98 38 35 08/06/20 05:00 95 26 131/66 (87) 98 08/06/20 04:00 107 21 126/67 (86) 97 08/06/20 04:00 Mechanical Ventilator Mechanical Ventilator 08/06/20 04:00 96 08/06/20 04:00 35 08/06/20 03:30 96 23 135/66 (89) 100 08/06/20 03:15 102 37 35 08/06/20 03:00 103 23 122/63 (82) 95 08/06/20 02:30 106 25 139/77 (97) 98 08/06/20 02:00 108 30 100/49 (66) 96 08/06/20 01:20 106 34 35 08/06/20 01:00 98 24 118/69 (85) 100 08/06/20 00:30 93 27 121/82 (95) 100 08/06/20 00:00 95 08/06/20 00:00 Mechanical Ventilator Mechanical Ventilator 08/06/20 00:00 40 08/06/20 00:00 98 29 131/95 (107) 100 08/05/20 23:30 100 25 123/66 (85) 100 08/05/20 23:00 100 21 132/50 (77) 100 08/05/20 22:43 99 36 40 08/05/20 22:30 98 26 143/84 (103) 100 08/05/20 22:00 99 26 123/79 (94) 100 08/05/20 21:30 92 25 124/97 (106) 100 08/05/20 21:24 90 39 40 08/05/20 21:00 94 20 121/68 (85) 100 08/05/20 20:30 89 28 114/77 (89) 100 08/05/20 20:00 93 26 119/62 (81) 99 08/05/20 20:00 90 08/05/20 20:00 40 08/05/20 20:00 Mechanical Ventilator Mechanical Ventilator 08/05/20 19:29 89 40 40 08/05/20 19:00 89 22 122/89 (100) 100 08/05/20 18:00 92 23 109/71 (84) 100 08/05/20 17:15 93 37 40 08/05/20 17:00 95 33 121/53 (75) 100 08/05/20 16:00 Mechanical Ventilator Mechanical Ventilator 08/05/20 16:00 86 08/05/20 16:00 99.0 92 27 119/60 (79) 100 08/05/20 16:00 40 08/05/20 15:00 93 26 109/46 (67) 100 08/05/20 14:44 91 38 40 08/05/20 14:00 85 28 118/48 (71) 100 08/05/20 13:05 89 37 40 08/05/20 13:00 89 29 119/50 (73) 100 08/05/20 12:00 Mechanical Ventilator Mechanical Ventilator 08/05/20 12:00 98.0 85 30 128/60 (82) 100 08/05/20 12:00 89 08/05/20 12:00 40 08/05/20 11:26 98 46 40 08/05/20 11:20 40 08/05/20 11:00 98 26 125/70 (88) 96 08/05/20 10:00 101 26 132/55 (80) 93 08/05/20 09:35 98 32 35 Intake and Output 08/05/20 08/06/20 19:00 07:00 Intake Total 760 ml 550 ml Output Total 1595 ml 1500 ml Balance -835 ml -950 ml Free Water 100 ml Tube Feeding 660 ml 550 ml Output Urine Total 1595 ml 1500 ml # Bowel Movements 2 3 General Appearance: no acute distress HEENT: normocephalic, status post trach Respiratory: chest wall non-tender Cardiovascular: normal peripheral pulses Abdomen: normal bowel sounds, other - s/p PEG Laboratory Tests 08/05/20 11:00: Arterial Blood pH 7.517H, Arterial Blood Partial Pressure CO2 59.5*H, Arterial Blood Partial Pressure O2 55.0L, Arterial Blood HCO3 47.2*H, Arterial Blood Oxygen Saturation 88.2*L, Arterial Blood Base Excess 21.5*H, Jeremiah Test Positive 08/06/20 05:28: White Blood Count 10.9H, Red Blood Count 3.36L, Hemoglobin 9.6L, Hematocrit 31.5L, Mean Corpuscular Volume 94, Mean Corpuscular Hemoglobin 28.5, Mean Corpuscular Hemoglobin Concent 30.4L, Red Cell Distribution Width 18.4H, Platelet Count 266, Mean Platelet Volume 7.5, Neutrophils (%) (Auto) 58.5, Lymphocytes (%) (Auto) 22.0, Monocytes (%) (Auto) 7.9, Eosinophils (%) (Auto) 10.8H, Basophils (%) (Auto) 0.8, Sodium Level 142, Potassium Level 3.7, Chloride Level 98, Carbon Dioxide Level 40H, Anion Gap 4L, Blood Urea Nitrogen 25H, Creatinine 1.1, Estimat Glomerular Filtration Rate 52.8, Glucose Level 121H, Calcium Level 10.9H 08/06/20 08:33: Arterial Blood pH 7.458H, Arterial Blood Partial Pressure CO2 57.1*H, Arterial Blood Partial Pressure O2 84.6, Arterial Blood HCO3 39.5H, Arterial Blood Oxygen Saturation 95.6, Arterial Blood Base Excess 13.7*H, Jeremiah Test Positive Current Medications Medications (Trade) Dose Ordered Sig/Zelda Route PRN Reason Start Time Stop Time Status Last Admin Dose Admin Acetaminophen (Tylenol) 650 mg Q4H PRN NG Temp >100.5 07/27/20 03:45 08/26/20 03:44 08/04/20 08:41 Acetaminophen/ Hydrocodone Bitart ([place] 5/325) 1 tab Q4H PRN ORAL Moderate Pain (Pain Scale 4-6) 08/02/20 10:45 08/09/20 10:44 08/03/20 05:24 Acetazolamide (Diamox) 250 mg Q6HR GT 08/05/20 12:00 08/07/20 06:01 08/06/20 05:34 Calcitonin [place] (Miacalcin) 1 sprays DAILY NASAL 07/22/20 14:00 10/20/20 13:59 08/06/20 08:30 Dextrose (Dextrose 50%) 25 ml Q30M PRN IV Hypoglycemia 06/05/20 10:45 09/03/20 10:44 Dextrose (Dextrose 50%) 50 ml Q30M PRN IV Hypoglycemia 06/05/20 10:45 09/03/20 10:44 Docusate Sodium (Colace) 100 mg EVERY 12 HOURS GT 08/01/20 21:00 08/25/20 17:59 08/06/20 08:30 Enoxaparin Sodium (Lovenox) 100 mg EVERY 12 HOURS SUBQ 08/04/20 09:00 10/15/20 20:59 08/06/20 08:33 Guaifenesin/ Codeine Phosphate (Robitussin with codeine) 5 ml Q6H PRN NG For Cough 07/14/20 14:15 08/13/20 14:14 07/18/20 21:44 Hydromorphone HCl (Dilaudid) 2 mg Q4H PRN IVP Severe Pain (Pain Scale 7-10) 08/05/20 06:45 08/09/20 10:44 Lansoprazole (Prevacid) 30 mg DAILY GT 07/18/20 09:00 08/09/20 08:59 08/06/20 08:30 Levofloxacin (Levaquin) 750 mg DAILY ORAL 08/03/20 12:00 08/10/20 11:59 08/06/20 08:30 Lorazepam (Ativan 2mg/ml 1ml) 1 mg Q4H PRN IV For Anxiety 08/02/20 13:45 08/09/20 13:44 08/02/20 22:19 Metoclopramide HCl (Reglan) 10 mg Q6H IVP 08/01/20 18:00 4/10/21 17:59 08/06/20 05:36 Midodrine (Pro-Amatine) 10 mg Q8HR GT 06/30/20 14:00 09/12/20 13:59 08/04/20 13:24 Ondansetron HCl (Zofran) 4 mg Q6H PRN IVP Nausea & Vomiting 08/02/20 10:00 09/01/20 09:59 Polyethylene Glycol (Miralax) 17 gm BEDTIME ORAL 07/26/20 21:00 08/25/20 20:59 08/05/20 21:13 Quetiapine Fumarate (SEROqueL) 75 mg Q8HR GT 08/02/20 14:00 08/30/20 13:59 08/06/20 05:35 Assessment/Plan Assessment/Plan 1. COVID-19 pneumonia - Intubated 05/28/20 -s/p solumedrol, Rocephin - Continue PEEP 6 ->7 ->5 - Peak airway pressures better - FiO2 100% -> 90 ->80->60 ->40 ->80 ->100 ->70 ->60 -> 50 ->45 ->40 ->50 ->40-> 80 -> 70->50->45->35%; PEEP 7 ->5 - s/p PEG - will attempt trach collar once COVID-19 PCR neg, then consider chest tube removal 2. Hyponatremia -Per primary MD 3. Elevated inflammatory markers - has high D dimer; On Lovenox -> Lovenox held given anemia 4. DVT of the right calf - once stable, consider IVC filter per heme vs oral DOAC - was on Lovenox but held given anemia 5. Decreased PEEP S/p trach Reported cuff leak per RN/RT Changed 07/22/20 however still has cuff leak 6. Leukocytosis; now WBC wnl - ID following - BCx Serratia Marcescens - UCx neg - Sp Cx pseudomonas 7. Pulmonary edema - s/p Lasix - now on Diamox Now off Levophed Now off IV sedation; on Seroquel TID, added [place] and Dilaudid prn s/p PEG Required R CT due to PTX 07/22/20 - CT removed (07/29) ->however, f/u CXR shows PTX with tracheal deviation. CT reinserted (07/30) Dc planning -> chest tube removal per surgery, COVID-19 PCR result pending The care of this patient was discussed with my supervising physician Time spent for this encounter was approximately 31 minutes Vamshi Garcia Aug 06, 2020 09:25
--- NOTE | 2020-08-06 09:48 | NUR ---
*-*DISCHARGE PLANNING*-* COVID TEST WAS TAKEN ON 08/05/20, RESULTS WILL TAKE 3 DAYS.
--- NOTE | 2020-08-06 10:21 | Nephrology Progress Note ---
Assessment/Plan Problem List: (1) DEVENDRA (acute kidney injury) (2) Morbid obesity (3) Diabetes mellitus out of control (4) Pneumonia due to COVID-19 virus (5) Respiratory failure Assessment Acute renal failure Obstructive uropathy, clogged [place] Respiratory failure COVID-19 pneumonia Morbid obesity Plan August 06: Labs reviewed. Serum calcium creeping up. 1 more dose of pamidronate 60 mg ordered. Continues on nasal calcitonin. Patient full code. Continue per other consultants. August 05: Status unchanged. No new labs for today.. Patient full code. Continue per consultants. Stable from renal standpoint of view. August 04: Status unchanged. Labs reviewed. Low magnesium addressed. Patient full code. Continue per consultants. August 03: Status quo. Labs reviewed. Renal parameters stable. Patient full code. Continue per pulmonary. August 02: Continues to have chest tube. Full code. Trach and vent. PEG. R enal parameters stable. August 01: Status quo. Leukocytosis resolved. Renal parameters stable. Continues to be vented through trach. Has PEG. Continue per consultants. Patient is full code. July 31: Chest tube was right reinserted on the right side. Patient remains trached on vent. Leukocytosis worsened . Renal parameters unchanged. Continue per current treatment plan. July 30: Status quo. Labs reviewed. Medication list reviewed. Stable from renal standpoint of view. Patient is full code, trached and vent, also has PEG. July 29: Status quo. Discussed with RN. Labs and medication list reviewed. Stable from renal standpoint of view. July 28: Full code. Labs reviewed. Abnormal electrolytes addressed. Medication list reviewed. Patient has trach and PEG and on ventilator. Continue per consultants. July 27: Full code. In ICU. Trach to vent. Labs reviewed. Renal parameters and electrolytes stable. July 26: Remains in ICU. Remains full code. Trach to vent. Labs reviewed. Abnormal electrolytes addressed. Continue per consultants. July 25: Seen in ICU. Received PEG yesterday. Has trach connected to vent. Full code. Labs reviewed. Albumin bolus given. IV started on table feeding via GT tube initiated. July 24: Patient seen in ICU. Status quo. Has trach. Being ventilated. Has right chest tube. Labs reviewed. Continue per consultants. Low magnesium and low phosphorus replaced. July 23: Patient seen in ICU. Discussed with RN. Yesterday the patient developed tension pneumothorax. Patient has a chest tube today. Labs reviewed. Renal parameters stable. Medication list reviewed. July 22: Status quo. Labs reviewed. Serum calcium elevated. Vitamin D discontinued. Pamidronate 60 mg IV given. Continue to monitor calcium and phosphorus. Patient due for PEG today. July 21: Status quo. Awake responsive. Labs reviewed. Medication list reviewed. Stable from renal standpoint of view. Due for PEG tomorrow. Continue her current management. July 20: Status quo. PEG procedure deferred to July 22. Patient remains full code. Abnormal electrolytes addressed. FiO2 50% unchanged. Continue per consultants. July 19: Status quo. Due for PEG insertion today. Remains full code. Trach and vent. Low magnesium addressed. Continue per consultants. FiO2 50%. July 18: Status quo. Labs reviewed. Low potassium addressed. Continue per consultants. Remains full code. July 17: Remains full code. Trach to vent. FiO2 40%. Labs reviewed. Low potassium addressed. Continue per consultants. July 16: Status quo. FiO2 45%. Discussed with RN. Continue to taper her mind altering medications and sedatives. Stable from renal standpoint of view. Abnormal electrolytes addressed. July 15: Full code. FiO2 50%. Intubated on ventilator. No labs drawn today. Continue per consultants. July 14: Status quo. FiO2 50%. Labs reviewed. Renal parameters stable. Continue per current treatment plan and consultants. Medication list reviewed. July 13: FiO2 60% unchanged. Labs reviewed. Renal parameters stable. Medication list reviewed. Continue per consultants. July 12: Full code. Labs reviewed. Normal electrolytes addressed. Continue per pulmonary. Medication list reviewed. July 11: Remains full code. On ventilator. FiO2 down to 65%. Renal parameters stable. Low magnesium addressed. Continue her current management. July 10: Full code. On ventilator. FiO2 70%. Hemoglobin mid sevens. Renal parameters stable. Continue per consultants. July 09: Labs reviewed. Renal parameters stable. FiO2 80% unchanged. Continue per pulmonary. July 08: Labs reviewed. Renal parameters and electrolytes stable. ABG suggestive of high PCO2. At this time patient is on FiO2 of 80%. Continue per pulmonary. Continue to monitor renal parameters. July 07: No CHEM panel drawn today. More potassium given. Continue to monitor renal parameters. Continue per consultants. Discussed with RN Rito. July 06: Low potassium addressed. Albumin bolus for low BP given. Patient remains full code. Continue to monitor electrolytes and renal parameters. Continue per consultants. Hemoglobin low today, transfusion per gaming dealer. July 05: Trach to vent. FiO2 80%. Renal parameters stable. PCO2 remains high at 44. Continue to monitor renal parameters. July 04: Patient now trach. Full code. Labs reviewed. Renal parameters s table. Low magnesium addressed. July 03: Intubated. Full code. Labs reviewed. Abnormal electrolytes addressed. Continue per consultants. Overall status unchanged. July 02: Remains intubated. Remains full code. Remains on FiO2 of 70%. Labs reviewed. Abnormal electrolytes addressed. Continue per pulmonary. July 01: Remains on 70% FiO2. Full code. Intubated on ventilator. Retaining CO2. Discussed with RN. Will do ABG today. Albumin bolus given. 1 dose of Diamox given. June 30: Status quo. Labs reviewed. Abnormal electrolytes addressed. Remains full code. Remains on ventilator. Magnesium sulfate 4 gram IVPB given. June 29: Full code. Intubated on ventilator. Labs reviewed. Stable from renal standpoint of view. Continue per consultants. June 28: Remains full code. Remains intubated on ventilator. Labs reviewed. Vitamin D supplement ordered. Continue to monitor renal parameters. Continue per consultants. June 27: Remains full code. Intubated on ventilator. Labs reviewed. Abnormal electrolyte addressed. Continue to monitor renal parameters and electrolytes. Continue per consultants. June 26: Labs reviewed. Remains full code. Remains intubated. Back on NGT feeding. Continue to monitor renal parameters. June 25: Labs reviewed. Renal parameters stable. Remains full code. Due to positional status patient could not be fed via NG tube. Starting TPN? Is being entertained. Continue per consultants. June 24: Labs reviewed. Renal parameters stable. Remains full code. Remains intubated on ventilator. Continue per consultants. June 23: Labs reviewed. Renal parameters stable. Discussed with RN. Abnormal electrolyte addressed. Remains full code. Remains on ventilator. Continue per consultants. June 22: Labs reviewed. Low potassium addressed. Discussed with RAKEL Moran. Patient full code. Remains on ventilator. Continue to monitor renal parameters. June 21. Labs reviewed. Abnormal electrolyte addressed. Full code. Remains on ventilator. Medication list reviewed. Continue per pulmonary management. DC IV fluid, resume Lasix daily, check chest x-ray. June 20: Labs reviewed. Abnormal electrolytes. Patient remains full code. Continue per consultants. Noted and addressed June 19: Labs reviewed. Abnormal electrolytes noted and addressed. Remains intubated on ventilator. Remains full code. June 18: Labs reviewed. Remains intubated on ventilator. Full code. Abnormal electrolyte addressed. Continue as is. June 17: Labs reviewed. Abnormal electrolytes addressed. Patient remains full code and intubated on ventilator. Continue per consultants. Renal parameters are within normal limits. June 16: Labs reviewed. Potassium chloride replaced. Remains full code. Remains intubated on ventilator. Continue per consultants. Continue to monitor renal parameters. June 15: Labs reviewed. Serum creatinine 1. Stable from renal standpoint to view. Continue per consultants. June 14: Labs reviewed. Full code. Serum creatinine of 3.5 down to 1.4. Low potassium addressed. Continue per current treatment plan. Continue to monitor renal parameters. Midodrine started. Albumin bolus given. Previously: DC Lasix drip Increase Protonix dose Monitor renal parameters, electrolytes Per orders Subjective ROS Limited/Unobtainable: Yes Objective Objective Last 24 Hour Vital Signs Date Time Temp Pulse Resp B/P (MAP) Pulse Ox O2 Delivery O2 Flow Rate FiO2 08/06/20 10:00 97 24 126/66 (86) 99 08/06/20 10:00 99 20 126/66 (86) 100 08/06/20 09:00 96 30 123/67 (85) 100 08/06/20 08:00 35 08/06/20 08:00 92 08/06/20 08:00 99.3 88 29 116/47 (70) 100 08/06/20 08:00 Mechanical Ventilator Mechanical Ventilator 08/06/20 07:00 101 24 121/60 (80) 98 08/06/20 06:30 98 27 150/65 (93) 99 08/06/20 06:00 96 27 147/70 (95) 100 08/06/20 05:30 95 24 143/76 (98) 100 08/06/20 05:12 98 38 35 08/06/20 05:00 95 26 131/66 (87) 98 08/06/20 04:00 107 21 126/67 (86) 97 08/06/20 04:00 Mechanical Ventilator Mechanical Ventilator 08/06/20 04:00 96 08/06/20 04:00 35 08/06/20 03:30 96 23 135/66 (89) 100 08/06/20 03:15 102 37 35 08/06/20 03:00 103 23 122/63 (82) 95 08/06/20 02:30 106 25 139/77 (97) 98 08/06/20 02:00 108 30 100/49 (66) 96 08/06/20 01:20 106 34 35 08/06/20 01:00 98 24 118/69 (85) 100 08/06/20 00:30 93 27 121/82 (95) 100 08/06/20 00:00 95 08/06/20 00:00 Mechanical Ventilator Mechanical Ventilator 08/06/20 00:00 40 08/06/20 00:00 98 29 131/95 (107) 100 08/05/20 23:30 100 25 123/66 (85) 100 08/05/20 23:00 100 21 132/50 (77) 100 08/05/20 22:43 99 36 40 08/05/20 22:30 98 26 143/84 (103) 100 08/05/20 22:00 99 26 123/79 (94) 100 08/05/20 21:30 92 25 124/97 (106) 100 08/05/20 21:24 90 39 40 08/05/20 21:00 94 20 121/68 (85) 100 08/05/20 20:30 89 28 114/77 (89) 100 08/05/20 20:00 93 26 119/62 (81) 99 08/05/20 20:00 90 08/05/20 20:00 40 08/05/20 20:00 Mechanical Ventilator Mechanical Ventilator 08/05/20 19:29 89 40 40 08/05/20 19:00 89 22 122/89 (100) 100 08/05/20 18:00 92 23 109/71 (84) 100 08/05/20 17:15 93 37 40 08/05/20 17:00 95 33 121/53 (75) 100 08/05/20 16:00 Mechanical Ventilator Mechanical Ventilator 08/05/20 16:00 86 08/05/20 16:00 99.0 92 27 119/60 (79) 100 08/05/20 16:00 40 08/05/20 15:00 93 26 109/46 (67) 100 08/05/20 14:44 91 38 40 08/05/20 14:00 85 28 118/48 (71) 100 08/05/20 13:05 89 37 40 08/05/20 13:00 89 29 119/50 (73) 100 08/05/20 12:00 Mechanical Ventilator Mechanical Ventilator 08/05/20 12:00 98.0 85 30 128/60 (82) 100 08/05/20 12:00 89 08/05/20 12:00 40 08/05/20 11:26 98 46 40 08/05/20 11:20 40 08/05/20 11:00 98 26 125/70 (88) 96 Intake and Output 08/05/20 08/06/20 19:00 07:00 Intake Total 760 ml 605 ml Output Total 1595 ml 1600 ml Balance -835 ml -995 ml Free Water 100 ml Tube Feeding 660 ml 605 ml Output Urine Total 1595 ml 1600 ml # Bowel Movements 2 3 Current Medications Medications (Trade) Dose Ordered Sig/Zelda Route PRN Reason Start Time Stop Time Status Last Admin Dose Admin Acetaminophen (Tylenol) 650 mg Q4H PRN NG Temp >100.5 07/27/20 03:45 08/26/20 03:44 08/04/20 08:41 Acetaminophen/ Hydrocodone Bitart ([place] 5/325) 1 tab Q4H PRN ORAL Moderate Pain (Pain Scale 4-6) 08/02/20 10:45 08/09/20 10:44 08/03/20 05:24 Acetazolamide (Diamox) 250 mg Q6HR GT 08/05/20 12:00 08/07/20 06:01 08/06/20 05:34 Calcitonin [place] (Miacalcin) 1 sprays DAILY NASAL 07/22/20 14:00 10/20/20 13:59 08/06/20 08:30 Dextrose (Dextrose 50%) 25 ml Q30M PRN IV Hypoglycemia 06/05/20 10:45 09/03/20 10:44 Dextrose (Dextrose 50%) 50 ml Q30M PRN IV Hypoglycemia 06/05/20 10:45 09/03/20 10:44 Docusate Sodium (Colace) 100 mg EVERY 12 HOURS GT 08/01/20 21:00 08/25/20 17:59 08/06/20 08:30 Enoxaparin Sodium (Lovenox) 100 mg EVERY 12 HOURS SUBQ 08/04/20 09:00 10/15/20 20:59 08/06/20 08:33 Guaifenesin/ Codeine Phosphate (Robitussin with codeine) 5 ml Q6H PRN NG For Cough 07/14/20 14:15 08/13/20 14:14 07/18/20 21:44 Hydromorphone HCl (Dilaudid) 2 mg Q4H PRN IVP Severe Pain (Pain Scale 7-10) 08/05/20 06:45 08/09/20 10:44 Lansoprazole (Prevacid) 30 mg DAILY GT 07/18/20 09:00 08/09/20 08:59 08/06/20 08:30 Levofloxacin (Levaquin) 750 mg DAILY ORAL 08/03/20 12:00 08/10/20 11:59 08/06/20 08:30 Lorazepam (Ativan 2mg/ml 1ml) 1 mg Q4H PRN IV For Anxiety 08/02/20 13:45 08/09/20 13:44 08/02/20 22:19 Metoclopramide HCl (Reglan) 10 mg Q6H IVP 08/01/20 18:00 08/31/20 17:59 08/06/20 05:36 Midodrine (Pro-Amatine) 10 mg Q8HR GT 06/30/20 14:00 09/12/20 13:59 08/04/20 13:24 Ondansetron HCl (Zofran) 4 mg Q6H PRN IVP Nausea & Vomiting 08/02/20 10:00 09/01/20 09:59 Polyethylene Glycol (Miralax) 17 gm BEDTIME ORAL 07/26/20 21:00 08/25/20 20:59 08/05/20 21:13 Quetiapine Fumarate (SEROqueL) 75 mg Q8HR GT 08/02/20 14:00 08/30/20 13:59 08/06/20 05:35 Laboratory Tests 08/05/20 11:00: Arterial Blood pH 7.517H, Arterial Blood Partial Pressure CO2 59.5*H, Arterial Blood Partial Pressure O2 55.0L, Arterial Blood HCO3 47.2*H, Arterial Blood Oxygen Saturation 88.2*L, Arterial Blood Base Excess 21.5*H, Jeremiah Test Positive 08/06/20 05:28: White Blood Count 10.9H, Red Blood Count 3.36L, Hemoglobin 9.6L, Hematocrit 31.5L, Mean Corpuscular Volume 94, Mean Corpuscular Hemoglobin 28.5, Mean Corpuscular Hemoglobin Concent 30.4L, Red Cell Distribution Width 18.4H, Platelet Count 266, Mean Platelet Volume 7.5, Neutrophils (%) (Auto) 58.5, Lymphocytes (%) (Auto) 22.0, Monocytes (%) (Auto) 7.9, Eosinophils (%) (Auto) 10.8H, Basophils (%) (Auto) 0.8, Sodium Level 142, Potassium Level 3.7, Chloride Level 98, Carbon Dioxide Level 40H, Anion Gap 4L, Blood Urea Nitrogen 25H, Creatinine 1.1, Estimat Glomerular Filtration Rate 52.8, Glucose Level 121H, Calcium Level 10.9H, Phosphorus Level [Pending], Magnesium Level [Pending], Total Bilirubin [Pending], Direct Bilirubin [Pending], Aspartate Amino Transf (AST/SGOT) [Pending], Alanine Aminotransferase (ALT/SGPT) [Pending], Alkaline Phosphatase [Pending], Total Protein [Pending], Albumin [Pending] 08/06/20 08:33: Arterial Blood pH 7.458H, Arterial Blood Partial Pressure CO2 57.1*H, Arterial Blood Partial Pressure O2 84.6, Arterial Blood HCO3 39.5H, Arterial Blood Oxygen Saturation 95.6, Arterial Blood Base Excess 13.7*H, Jeremiah Test Positive Height (Feet): 5 Height (Inches): 5.00 Weight (Pounds): 223 Cardiovascular: tachycardia Respiratory/Chest: decreased breath sounds Abdomen: distended Rigo Tyler MD Aug 06, 2020 10:21
[2020-08-06] MEDS ORDERED: Midodrine 10mg tab GT PRN (10:30)
[2020-08-06 10:35] LABS: ALANINE AMINOTRANSFERASE 21 U/L (12-78); ALBUMIN 2.8 G/DL (3.4-5.0); ALKALINE PHOSPHATASE 66 U/L (46-116); ASPARTATE AMINO TRANSFERASE 33 U/L (15-37); BILIRUBIN,DIRECT 0.1 MG/DL (0.0-0.3); BILIRUBIN,TOTAL 0.5 MG/DL (0.2-1.0); PHOSPHORUS 5.2 MG/DL (2.5-4.9)
--- NOTE | 2020-08-06 10:37 | NUR ---
0720: Received report from previous RN. Pt trach to vent. Pt with PIV. Pt with marrero. Pt with R sided pleura vent that is water sealed. Pt with PEG with tube feeds infusing at goal. 0830: ABG done. 0900: ZULLY Garcia at bedside. ABG results shown. 1000: Pt was to be put on cool aersol however per lithopone charger pt is still COVID positive. Awaiting results from COVID PCR done yesterday. greaser helper spoke to ZULLY Garcia.
--- NOTE | 2020-08-06 10:39 | Infectious Diseases Prog Note ---
Assessment/Plan Assessment/Plan A 1. COVID19 pneumonia 2. Hypoxic respiratory failure 3. Morbid obesity 4. DM type 2 5. Thrombocytopenia 6. leukocytosis resolved 7. Pseudomonas pneumonia 8. Anemia 9. VDRF 10. Cardiac arrest 11. UTI 12. Right pneumothorax 13 Gastrostomy status 14,Serratia sepsis P 1. Finished remdesivir course 2. Finished steroid course 3.Continue Levaquin X 6 days Subjective ROS Limited/Unobtainable: Yes Allergies: Coded Allergies: No Known Allergies (Unverified , 05/28/20) Objective Last 24 Hour Vital Signs Date Time Temp Pulse Resp B/P (MAP) Pulse Ox O2 Delivery O2 Flow Rate FiO2 08/06/20 10:00 97 24 126/66 (86) 99 08/06/20 10:00 99 20 126/66 (86) 100 08/06/20 09:00 96 30 123/67 (85) 100 08/06/20 08:00 35 08/06/20 08:00 92 08/06/20 08:00 99.3 88 29 116/47 (70) 100 08/06/20 08:00 Mechanical Ventilator Mechanical Ventilator 08/06/20 07:00 101 24 121/60 (80) 98 08/06/20 06:30 98 27 150/65 (93) 99 08/06/20 06:00 96 27 147/70 (95) 100 08/06/20 05:30 95 24 143/76 (98) 100 08/06/20 05:12 98 38 35 08/06/20 05:00 95 26 131/66 (87) 98 08/06/20 04:00 107 21 126/67 (86) 97 08/06/20 04:00 Mechanical Ventilator Mechanical Ventilator 08/06/20 04:00 96 08/06/20 04:00 35 08/06/20 03:30 96 23 135/66 (89) 100 08/06/20 03:15 102 37 35 08/06/20 03:00 103 23 122/63 (82) 95 08/06/20 02:30 106 25 139/77 (97) 98 08/06/20 02:00 108 30 100/49 (66) 96 08/06/20 01:20 106 34 35 08/06/20 01:00 98 24 118/69 (85) 100 08/06/20 00:30 93 27 121/82 (95) 100 08/06/20 00:00 95 08/06/20 00:00 Mechanical Ventilator Mechanical Ventilator 08/06/20 00:00 40 08/06/20 00:00 98 29 131/95 (107) 100 08/05/20 23:30 100 25 123/66 (85) 100 08/05/20 23:00 100 21 132/50 (77) 100 08/05/20 22:43 99 36 40 08/05/20 22:30 98 26 143/84 (103) 100 08/05/20 22:00 99 26 123/79 (94) 100 08/05/20 21:30 92 25 124/97 (106) 100 08/05/20 21:24 90 39 40 08/05/20 21:00 94 20 121/68 (85) 100 08/05/20 20:30 89 28 114/77 (89) 100 08/05/20 20:00 93 26 119/62 (81) 99 08/05/20 20:00 90 08/05/20 20:00 40 08/05/20 20:00 Mechanical Ventilator Mechanical Ventilator 08/05/20 19:29 89 40 40 08/05/20 19:00 89 22 122/89 (100) 100 08/05/20 18:00 92 23 109/71 (84) 100 08/05/20 17:15 93 37 40 08/05/20 17:00 95 33 121/53 (75) 100 08/05/20 16:00 Mechanical Ventilator Mechanical Ventilator 08/05/20 16:00 86 08/05/20 16:00 99.0 92 27 119/60 (79) 100 08/05/20 16:00 40 08/05/20 15:00 93 26 109/46 (67) 100 08/05/20 14:44 91 38 40 08/05/20 14:00 85 28 118/48 (71) 100 08/05/20 13:05 89 37 40 08/05/20 13:00 89 29 119/50 (73) 100 08/05/20 12:00 Mechanical Ventilator Mechanical Ventilator 08/05/20 12:00 98.0 85 30 128/60 (82) 100 08/05/20 12:00 89 08/05/20 12:00 40 08/05/20 11:26 98 46 40 08/05/20 11:20 40 08/05/20 11:00 98 26 125/70 (88) 96 Height (Feet): 5 Height (Inches): 5.00 Weight (Pounds): 223 HEENT: status post trach Respiratory/Chest: rhonchi - bilaterally, other - on ventilator, FIO2=35%, R chest tube Cardiovascular: normal rate Abdomen: soft, non tender, other - GT feeding Extremities: other - decreased edema Neurologic/Psychiatric: other - awake Laboratory Tests Test 08/05/20 11:00 08/06/20 05:28 08/06/20 08:33 Arterial Blood pH 7.517 (7.350-7.450) 7.458 (7.350-7.450) Arterial Blood Partial Pressure CO2 59.5 mmHg (35.0-45.0) *H 57.1 mmHg (35.0-45.0) *H Arterial Blood Partial Pressure O2 55.0 mmHg (75.0-100.0) L 84.6 mmHg (75.0-100.0) Arterial Blood HCO3 47.2 mmol/L (22.0-26.0) *H 39.5 mmol/L (22.0-26.0) H Arterial Blood Oxygen Saturation 88.2 % (95-100) *L 95.6 % (95-100) Arterial Blood Base Excess 21.5 (-2-2) *H 13.7 (-2-2) *H Jeremiah Test Positive Positive White Blood Count 10.9 K/UL (4.8-10.8) H Red Blood Count 3.36 M/UL (4.20-5.40) L Hemoglobin 9.6 G/DL (12.0-16.0) L Hematocrit 31.5 % (37.0-47.0) L Mean Corpuscular Volume 94 FL (80-99) Mean Corpuscular Hemoglobin 28.5 PG (27.0-31.0) Mean Corpuscular Hemoglobin Concent 30.4 G/DL (32.0-36.0) L Red Cell Distribution Width 18.4 % (11.6-14.8) H Platelet Count 266 K/UL (150-450) Mean Platelet Volume 7.5 FL (6.5-10.1) Neutrophils (%) (Auto) 58.5 % (45.0-75.0) Lymphocytes (%) (Auto) 22.0 % (20.0-45.0) Monocytes (%) (Auto) 7.9 % (1.0-10.0) Eosinophils (%) (Auto) 10.8 % (0.0-3.0) H Basophils (%) (Auto) 0.8 % (0.0-2.0) Sodium Level 142 MMOL/L (136-145) Potassium Level 3.7 MMOL/L (3.5-5.1) Chloride Level 98 MMOL/L (98-107) Carbon Dioxide Level 40 MMOL/L (21-32) H Anion Gap 4 mmol/L (5-15) L Blood Urea Nitrogen 25 mg/dL (7-18) H Creatinine 1.1 MG/DL (0.55-1.30) Estimat Glomerular Filtration Rate 52.8 mL/min (>60) Glucose Level 121 MG/DL (74-106) H Calcium Level 10.9 MG/DL (8.5-10.1) H Phosphorus Level Pending Magnesium Level Pending Total Bilirubin Pending Direct Bilirubin Pending Aspartate Amino Transf (AST/SGOT) Pending Alanine Aminotransferase (ALT/SGPT) Pending Alkaline Phosphatase Pending Total Protein Pending Albumin Pending Current Medications Medications (Trade) Dose Ordered Sig/Zelda Route PRN Reason Start Time Stop Time Status Last Admin Dose Admin Acetaminophen (Tylenol) 650 mg Q4H PRN NG Temp >100.5 07/27/20 03:45 08/26/20 03:44 08/04/20 08:41 Acetaminophen/ Hydrocodone Bitart ([place] 5/325) 1 tab Q4H PRN ORAL Moderate Pain (Pain Scale 4-6) 08/02/20 10:45 08/09/20 10:44 08/03/20 05:24 Acetazolamide (Diamox) 250 mg Q6HR GT 08/05/20 12:00 08/07/20 06:01 08/06/20 05:34 Calcitonin [place] (Miacalcin) 1 sprays DAILY NASAL 07/22/20 14:00 10/20/20 13:59 08/06/20 08:30 Dextrose (Dextrose 50%) 25 ml Q30M PRN IV Hypoglycemia 06/05/20 10:45 09/03/20 10:44 Dextrose (Dextrose 50%) 50 ml Q30M PRN IV Hypoglycemia 06/05/20 10:45 09/03/20 10:44 Docusate Sodium (Colace) 100 mg EVERY 12 HOURS GT 08/01/20 21:00 08/25/20 17:59 08/06/20 08:30 Enoxaparin Sodium (Lovenox) 100 mg EVERY 12 HOURS SUBQ 08/04/20 09:00 10/15/20 20:59 08/06/20 08:33 Guaifenesin/ Codeine Phosphate (Robitussin with codeine) 5 ml Q6H PRN NG For Cough 07/14/20 14:15 08/13/20 14:14 07/18/20 21:44 Hydromorphone HCl (Dilaudid) 2 mg Q4H PRN IVP Severe Pain (Pain Scale 7-10) 08/05/20 06:45 08/09/20 10:44 Lansoprazole (Prevacid) 30 mg DAILY GT 07/18/20 09:00 08/09/20 08:59 08/06/20 08:30 Levofloxacin (Levaquin) 750 mg DAILY ORAL 08/03/20 12:00 08/10/20 11:59 08/06/20 08:30 Lorazepam (Ativan 2mg/ml 1ml) 1 mg Q4H PRN IV For Anxiety 08/02/20 13:45 08/09/20 13:44 08/02/20 22:19 Metoclopramide HCl (Reglan) 10 mg Q6H IVP 08/01/20 18:00 08/31/20 17:59 08/06/20 05:36 Midodrine (Pro-Amatine) 10 mg Q8H PRN GT BP below 100 systolic 08/06/20 10:30 11/04/20 10:29 Ondansetron HCl (Zofran) 4 mg Q6H PRN IVP Nausea & Vomiting 08/02/20 10:00 09/01/20 09:59 Pamidronate Disodium 60 mg/ Sodium Chloride 550 ml @ 137.5 mls/ hr ONCE ONCE IVPB 08/06/20 12:00 08/06/20 15:59 Polyethylene Glycol (Miralax) 17 gm BEDTIME ORAL 07/26/20 21:00 08/25/20 20:59 08/05/20 21:13 Quetiapine Fumarate (SEROqueL) 75 mg Q8HR GT 08/02/20 14:00 08/30/20 13:59 08/06/20 05:35 Colt Arana MD Aug 06, 2020 10:39
--- NOTE | 2020-08-06 11:11 | Surgery Progress Note ---
Surgery Progress Note Subjective Procedure Performed right tube chest tube insertion Additional Comments no acute events comfortable eyes open on vent will plan chest tube removal when ready Objective Last 24 Hour Vital Signs Date Time Temp Pulse Resp B/P (MAP) Pulse Ox O2 Delivery O2 Flow Rate FiO2 08/06/20 11:00 97 21 129/54 (79) 100 08/06/20 10:00 97 24 126/66 (86) 99 08/06/20 10:00 99 20 126/66 (86) 100 08/06/20 09:00 96 30 123/67 (85) 100 08/06/20 08:00 35 08/06/20 08:00 92 08/06/20 08:00 99.3 88 29 116/47 (70) 100 08/06/20 08:00 Mechanical Ventilator Mechanical Ventilator 08/06/20 07:00 101 24 121/60 (80) 98 08/06/20 06:30 98 27 150/65 (93) 99 08/06/20 06:00 96 27 147/70 (95) 100 08/06/20 05:30 95 24 143/76 (98) 100 08/06/20 05:12 98 38 35 08/06/20 05:00 95 26 131/66 (87) 98 08/06/20 04:00 107 21 126/67 (86) 97 08/06/20 04:00 Mechanical Ventilator Mechanical Ventilator 08/06/20 04:00 96 08/06/20 04:00 35 08/06/20 03:30 96 23 135/66 (89) 100 08/06/20 03:15 102 37 35 08/06/20 03:00 103 23 122/63 (82) 95 08/06/20 02:30 106 25 139/77 (97) 98 08/06/20 02:00 108 30 100/49 (66) 96 08/06/20 01:20 106 34 35 08/06/20 01:00 98 24 118/69 (85) 100 08/06/20 00:30 93 27 121/82 (95) 100 08/06/20 00:00 95 08/06/20 00:00 Mechanical Ventilator Mechanical Ventilator 08/06/20 00:00 40 08/06/20 00:00 98 29 131/95 (107) 100 08/05/20 23:30 100 25 123/66 (85) 100 08/05/20 23:00 100 21 132/50 (77) 100 08/05/20 22:43 99 36 40 08/05/20 22:30 98 26 143/84 (103) 100 08/05/20 22:00 99 26 123/79 (94) 100 08/05/20 21:30 92 25 124/97 (106) 100 08/05/20 21:24 90 39 40 08/05/20 21:00 94 20 121/68 (85) 100 08/05/20 20:30 89 28 114/77 (89) 100 08/05/20 20:00 93 26 119/62 (81) 99 08/05/20 20:00 90 08/05/20 20:00 40 08/05/20 20:00 Mechanical Ventilator Mechanical Ventilator 08/05/20 19:29 89 40 40 08/05/20 19:00 89 22 122/89 (100) 100 08/05/20 18:00 92 23 109/71 (84) 100 08/05/20 17:15 93 37 40 08/05/20 17:00 95 33 121/53 (75) 100 08/05/20 16:00 Mechanical Ventilator Mechanical Ventilator 08/05/20 16:00 86 08/05/20 16:00 99.0 92 27 119/60 (79) 100 08/05/20 16:00 40 08/05/20 15:00 93 26 109/46 (67) 100 08/05/20 14:44 91 38 40 08/05/20 14:00 85 28 118/48 (71) 100 08/05/20 13:05 89 37 40 08/05/20 13:00 89 29 119/50 (73) 100 08/05/20 12:00 Mechanical Ventilator Mechanical Ventilator 08/05/20 12:00 98.0 85 30 128/60 (82) 100 08/05/20 12:00 89 08/05/20 12:00 40 08/05/20 11:26 98 46 40 08/05/20 11:20 40 I&O Intake and Output 08/05/20 08/06/20 19:00 07:00 Intake Total 760 ml 605 ml Output Total 1595 ml 1600 ml Balance -835 ml -995 ml Free Water 100 ml Tube Feeding 660 ml 605 ml Output Urine Total 1595 ml 1600 ml # Bowel Movements 2 3 Dressing: dry Wound: clean Cardiovascular: RSR Respiratory: decreased breath sounds Abdomen: soft, flat, non-tender, present bowel sounds, non-distended Extremities: no tenderness, no cyanosis Laboratory Tests Test 08/06/20 05:28 08/06/20 08:33 White Blood Count 10.9 K/UL (4.8-10.8) H Red Blood Count 3.36 M/UL (4.20-5.40) L Hemoglobin 9.6 G/DL (12.0-16.0) L Hematocrit 31.5 % (37.0-47.0) L Mean Corpuscular Volume 94 FL (80-99) Mean Corpuscular Hemoglobin 28.5 PG (27.0-31.0) Mean Corpuscular Hemoglobin Concent 30.4 G/DL (32.0-36.0) L Red Cell Distribution Width 18.4 % (11.6-14.8) H Platelet Count 266 K/UL (150-450) Mean Platelet Volume 7.5 FL (6.5-10.1) Neutrophils (%) (Auto) 58.5 % (45.0-75.0) Lymphocytes (%) (Auto) 22.0 % (20.0-45.0) Monocytes (%) (Auto) 7.9 % (1.0-10.0) Eosinophils (%) (Auto) 10.8 % (0.0-3.0) H Basophils (%) (Auto) 0.8 % (0.0-2.0) Sodium Level 142 MMOL/L (136-145) Potassium Level 3.7 MMOL/L (3.5-5.1) Chloride Level 98 MMOL/L (98-107) Carbon Dioxide Level 40 MMOL/L (21-32) H Anion Gap 4 mmol/L (5-15) L Blood Urea Nitrogen 25 mg/dL (7-18) H Creatinine 1.1 MG/DL (0.55-1.30) Estimat Glomerular Filtration Rate 52.8 mL/min (>60) Glucose Level 121 MG/DL (74-106) H Calcium Level 10.9 MG/DL (8.5-10.1) H Phosphorus Level 5.2 MG/DL (2.5-4.9) H Magnesium Level 1.8 MG/DL (1.8-2.4) Total Bilirubin 0.5 MG/DL (0.2-1.0) Direct Bilirubin 0.1 MG/DL (0.0-0.3) Aspartate Amino Transf (AST/SGOT) 33 U/L (15-37) Alanine Aminotransferase (ALT/SGPT) 21 U/L (12-78) Alkaline Phosphatase 66 U/L (46-116) Total Protein 7.2 G/DL (6.4-8.2) Albumin 2.8 G/DL (3.4-5.0) L Arterial Blood pH 7.458 (7.350-7.450) Arterial Blood Partial Pressure CO2 57.1 mmHg (35.0-45.0) *H Arterial Blood Partial Pressure O2 84.6 mmHg (75.0-100.0) Arterial Blood HCO3 39.5 mmol/L (22.0-26.0) H Arterial Blood Oxygen Saturation 95.6 % (95-100) Arterial Blood Base Excess 13.7 (-2-2) *H Jeremiah Test Positive Plan Problems: (1) Respiratory distress (2) Respiratory failure Assessment & Plan: 50-year-old female Covid positive respiratory insufficiency intubated on ventilatory support declining. Leukocytosis increase oxygen requirement. Vent settings per pulmonology reviewed identified and agree. Unfortunately further surgical invention at this time is not appropriate as patient is not a candidate and her current condition. Prognosis overall guarded. Tracheostomy can be considered in the future if recovering or shows improvement and requires unable to be weaned from ventilator support. Currently okay for nutritional optimization with NG tube. Will need significant monitoring for decubitus formation given patient's size and condition. Okay for air mattress tolerated. Turn every 2 hours as tolerated. Patient is otherwise critically ill and blood pressure labile. Will need to monitor closely.Bilateral infiltrates are again demonstrated. Stable tube and line positions. will need trach will need to wean vent first no cuff leak trach okay Improving weaning well DC planning placement much improved peg placement trach changed acls now resuscitated (3) Hypoxia (4) Pneumonia due to COVID-19 virus Assessment & Plan: ++ as per pulm and ID (5) Diabetes mellitus out of control Assessment & Plan: DAILY ESTIMATED NEEDS: Needs based on Critical care, obesity 11-14kcal/kg actual body wt (140kg) kcals/kg 8312-4194 total kcals 1.5-2.0g prot/kg IBW (64.5kg) g protein/kg 96-129 g total protein 25-30ml/kg abw (83kg) mL/kg 0954-7365 total fluid mLs NUTRITION DIAGNOSIS: Swallowing difficulty R/T respiratory failure as evidenced by pt orally intubated and sedated, on OGT feeds. CURRENT TF: Vital 1.2 goal of 60ml/hr ENTERAL NUTRITION RECOMMENDATIONS: Vital AF 1.2 @ 60ml/hr x 24 hrs to provide 1440ml, 1728kcal, 108g prot, 1168ml free water * Maintain current critical care and carb controlled TF formula of Vital AF * TF @ goal meeds 100% est kcal/prot needs * HOB over 30 degrees/ water flush per MD TF may be lowered to 55ml/hr for improved BG control while maintaining Kcal and pro needs. ADDITIONAL RECOMMENDATIONS: * Calibrated bedscale wt * Monitor Propofol rate, need for TF adjustment-> now off * Monitor BGs closely : now improved, on novolog q 6rs + NISS * Monitor lytes- K elevated, monitor need for TF change * Rec bowel regimen- now w/ rectal tube . (6) Pneumothorax on right Assessment & Plan: right tension pneumothorax trach changed for cuff leak and decreased volumes pressures high after and ptx tension acls resuscitated right chest tube placed ptx resolved cont chest tube to suction am cxr wean vent Right chest tube, tracheostomy, nasogastric tube remain. Previously demonstrated subcutaneous emphysema has nearly completely cleared, with only questionably small residual in the left supraclavicular fossa. Extensive bilateral infiltrates persist. There is no pneumothorax currently. The heart is borderline enlarged. Pneumoperitoneum persists, may be slightly decreased Impression: Markedly improved subcutaneous emphysema Unchanged bilateral infiltrates Persistent but perhaps slightly decreased pneumoperitoneum chest tube removed 07/29 f/u cxr new chest tube 07/30 tolerating tube feeds no n/v weaning vent well cxr reviewed tube okay no large ptx stable cont chest tube to water seal (7) DEVENDRA (acute kidney injury) (8) Morbid obesity Az Devine Aug 06, 2020 11:11
--- NOTE | 2020-08-06 11:57 | General Progress Note ---
Subjective ROS Limited/Unobtainable: No Allergies: Coded Allergies: No Known Allergies (Unverified , 05/28/20) Subjective vomited again had BM no GT residuals Objective Last 24 Hour Vital Signs Date Time Temp Pulse Resp B/P (MAP) Pulse Ox O2 Delivery O2 Flow Rate FiO2 08/06/20 11:00 97 21 129/54 (79) 100 08/06/20 10:00 97 24 126/66 (86) 99 08/06/20 10:00 99 20 126/66 (86) 100 08/06/20 09:00 96 30 123/67 (85) 100 08/06/20 08:00 35 08/06/20 08:00 92 08/06/20 08:00 99.3 88 29 116/47 (70) 100 08/06/20 08:00 Mechanical Ventilator Mechanical Ventilator 08/06/20 07:00 101 24 121/60 (80) 98 08/06/20 06:30 98 27 150/65 (93) 99 08/06/20 06:00 96 27 147/70 (95) 100 08/06/20 05:30 95 24 143/76 (98) 100 08/06/20 05:12 98 38 35 08/06/20 05:00 95 26 131/66 (87) 98 08/06/20 04:00 107 21 126/67 (86) 97 08/06/20 04:00 Mechanical Ventilator Mechanical Ventilator 08/06/20 04:00 96 08/06/20 04:00 35 08/06/20 03:30 96 23 135/66 (89) 100 08/06/20 03:15 102 37 35 08/06/20 03:00 103 23 122/63 (82) 95 08/06/20 02:30 106 25 139/77 (97) 98 08/06/20 02:00 108 30 100/49 (66) 96 08/06/20 01:20 106 34 35 08/06/20 01:00 98 24 118/69 (85) 100 08/06/20 00:30 93 27 121/82 (95) 100 08/06/20 00:00 95 08/06/20 00:00 Mechanical Ventilator Mechanical Ventilator 08/06/20 00:00 40 08/06/20 00:00 98 29 131/95 (107) 100 3/15/21 23:30 100 25 123/66 (85) 100 08/05/20 23:00 100 21 132/50 (77) 100 08/05/20 22:43 99 36 40 08/05/20 22:30 98 26 143/84 (103) 100 08/05/20 22:00 99 26 123/79 (94) 100 08/05/20 21:30 92 25 124/97 (106) 100 08/05/20 21:24 90 39 40 08/05/20 21:00 94 20 121/68 (85) 100 08/05/20 20:30 89 28 114/77 (89) 100 08/05/20 20:00 93 26 119/62 (81) 99 08/05/20 20:00 90 08/05/20 20:00 40 08/05/20 20:00 Mechanical Ventilator Mechanical Ventilator 08/05/20 19:29 89 40 40 08/05/20 19:00 89 22 122/89 (100) 100 08/05/20 18:00 92 23 109/71 (84) 100 08/05/20 17:15 93 37 40 08/05/20 17:00 95 33 121/53 (75) 100 08/05/20 16:00 Mechanical Ventilator Mechanical Ventilator 08/05/20 16:00 86 08/05/20 16:00 99.0 92 27 119/60 (79) 100 08/05/20 16:00 40 08/05/20 15:00 93 26 109/46 (67) 100 08/05/20 14:44 91 38 40 08/05/20 14:00 85 28 118/48 (71) 100 08/05/20 13:05 89 37 40 08/05/20 13:00 89 29 119/50 (73) 100 08/05/20 12:00 Mechanical Ventilator Mechanical Ventilator 08/05/20 12:00 98.0 85 30 128/60 (82) 100 08/05/20 12:00 89 08/05/20 12:00 40 Intake and Output 08/05/20 08/06/20 19:00 07:00 Intake Total 760 ml 605 ml Output Total 1595 ml 1600 ml Balance -835 ml -995 ml Free Water 100 ml Tube Feeding 660 ml 605 ml Output Urine Total 1595 ml 1600 ml # Bowel Movements 2 3 Laboratory Tests 08/06/20 05:28: White Blood Count 10.9H, Red Blood Count 3.36L, Hemoglobin 9.6L, Hematocrit 31.5L, Mean Corpuscular Volume 94, Mean Corpuscular Hemoglobin 28.5, Mean Corpu scular Hemoglobin Concent 30.4L, Red Cell Distribution Width 18.4H, Platelet Count 266, Mean Platelet Volume 7.5, Neutrophils (%) (Auto) 58.5, Lymphocytes (%) (Auto) 22.0, Monocytes (%) (Auto) 7.9, Eosinophils (%) (Auto) 10.8H, Basophils (%) (Auto) 0.8, Sodium Level 142, Potassium Level 3.7, Chloride Level 98, Carbon Dioxide Level 40H, Anion Gap 4L, Blood Urea Nitrogen 25H, Creatinine 1.1, Estimat Glomerular Filtration Rate 52.8, Glucose Level 121H, Calcium Level 10.9H, Phosphorus Level 5.2H, Magnesium Level 1.8, Total Bilirubin 0.5, Direct Bilirubin 0.1, Aspartate Amino Transf (AST/SGOT) 33, Alanine Aminotransferase (ALT/SGPT) 21, Alkaline Phosphatase 66, Total Protein 7.2, Albumin 2.8L 08/06/20 08:33: Arterial Blood pH 7.458H, Arterial Blood Partial Pressure CO2 57.1*H, Arterial Blood Partial Pressure O2 84.6, Arterial Blood HCO3 39.5H, Arterial Blood Oxygen Saturation 95.6, Arterial Blood Base Excess 13.7*H, Jeremiah Test Positive Height (Feet): 5 Height (Inches): 5.00 Weight (Pounds): 223 General Appearance: no apparent distress EENT: normal ENT inspection Neck: supple Cardiovascular: normal rate Respiratory/Chest: decreased breath sounds Abdomen: hypoactive bowel sounds Extremities: non-tender Assessment/Plan Problem List: (1) Morbid obesity ICD Codes: E66.01 - Morbid (severe) obesity due to excess calories SNOMED: 754406422 (2) DEVENDRA (acute kidney injury) ICD Codes: N17.9 - Acute kidney failure, unspecified SNOMED: 5948579, 26873046 (3) Diabetes mellitus out of control ICD Codes: E11.65 - Type 2 diabetes mellitus with hyperglycemia SNOMED: 97480928, 976496463 (4) Pneumonia due to COVID-19 virus ICD Codes: U07.1 - COVID-19; J12.82 - Pneumonia due to coronavirus disease 2019 SNOMED: 823182803616296587 (5) Hypoxia ICD Codes: R09.02 - Hypoxemia SNOMED: 886488286 (6) Respiratory failure ICD Codes: J96.90 - Respiratory failure, unspecified, unspecified whether with hypoxia or hypercapnia SNOMED: 395567128 Status: unchanged Assessment/Plan: s/p PEG GTF colace miralax zofran reglan will Ryan Dubose MD Aug 06, 2020 11:57
[2020-08-06] MEDS ORDERED: Pamidronate Disodium Inj 60 MG in Sodium Chloride 550 ML IVPB ONE (12:00)
--- NOTE | 2020-08-06 12:38 | Cardiac Electrophysiology PN ---
Assessment/Plan Assessment/Plan 1. Respiratory failure due to COVID-19 pneumonia. On tracheostomy on 50 % Fio2. Trach exchanged 07/22/[address] Devine Echo EF 60% 2. S/P Code x2 with hypotension and sammy arrest on 07/22/20 likely due to Pneumothorax. HR stable 3. Right Pneumothorax, S/P chest tube placement. Removed 07/29/20 Thoravent placed 07/30/20 to water seal 4. Hypotension, on midodrine 10 mg 3 times daily and off pressors 5. Dysphagia. S/P PEG 07/24/20 6. Right lower extremity DVT. Follow up by Hematology. 7. Severe anemia, S/P PRBC 8. Low Mg, replaced DW RN COvid test pending Subjective Subjective Coded twice for hypotension and bradycardia while on the Vent about 20 minutes after tracheostomy was changed 07/22/20 Found to have Right Pneumothorax and underwent Right chest tube placement by Dr. Devine S/P PRBC. S/P PEG 07/24/20. Chest tube removed 07/29/20 Thora vent placed by Dr. Devine 07/30/20 to water seal In ICU on the Vent on 40 % Fio2 and PEEP 5 In SR. Off pressors COvid test pending Objective Last 24 Hour Vital Signs Date Time Temp Pulse Resp B/P (MAP) Pulse Ox O2 Delivery O2 Flow Rate FiO2 08/06/20 12:00 87 08/06/20 12:00 88 23 141/67 (91) 100 08/06/20 11:00 97 21 129/54 (79) 100 08/06/20 10:00 97 24 126/66 (86) 99 08/06/20 10:00 99 20 126/66 (86) 100 08/06/20 09:00 96 30 123/67 (85) 100 08/06/20 08:00 35 08/06/20 08:00 92 08/06/20 08:00 99.3 88 29 116/47 (70) 100 08/06/20 08:00 Mechanical Ventilator Mechanical Ventilator 08/06/20 07:00 101 24 121/60 (80) 98 08/06/20 06:30 98 27 150/65 (93) 99 08/06/20 06:00 96 27 147/70 (95) 100 3/16/21 05:30 95 24 143/76 (98) 100 08/06/20 05:12 98 38 35 08/06/20 05:00 95 26 131/66 (87) 98 08/06/20 04:00 107 21 126/67 (86) 97 08/06/20 04:00 Mechanical Ventilator Mechanical Ventilator 08/06/20 04:00 96 08/06/20 04:00 35 08/06/20 03:30 96 23 135/66 (89) 100 08/06/20 03:15 102 37 35 08/06/20 03:00 103 23 122/63 (82) 95 08/06/20 02:30 106 25 139/77 (97) 98 08/06/20 02:00 108 30 100/49 (66) 96 08/06/20 01:20 106 34 35 08/06/20 01:00 98 24 118/69 (85) 100 08/06/20 00:30 93 27 121/82 (95) 100 08/06/20 00:00 95 08/06/20 00:00 Mechanical Ventilator Mechanical Ventilator 08/06/20 00:00 40 08/06/20 00:00 98 29 131/95 (107) 100 08/05/20 23:30 100 25 123/66 (85) 100 08/05/20 23:00 100 21 132/50 (77) 100 08/05/20 22:43 99 36 40 08/05/20 22:30 98 26 143/84 (103) 100 08/05/20 22:00 99 26 123/79 (94) 100 08/05/20 21:30 92 25 124/97 (106) 100 08/05/20 21:24 90 39 40 08/05/20 21:00 94 20 121/68 (85) 100 08/05/20 20:30 89 28 114/77 (89) 100 08/05/20 20:00 93 26 119/62 (81) 99 08/05/20 20:00 90 08/05/20 20:00 40 08/05/20 20:00 Mechanical Ventilator Mechanical Ventilator 08/05/20 19:29 89 40 40 08/05/20 19:00 89 22 122/89 (100) 100 08/05/20 18:00 92 23 109/71 (84) 100 08/05/20 17:15 93 37 40 08/05/20 17:00 95 33 121/53 (75) 100 08/05/20 16:00 Mechanical Ventilator Mechanical Ventilator 08/05/20 16:00 86 08/05/20 16:00 99.0 92 27 119/60 (79) 100 08/05/20 16:00 40 08/05/20 15:00 93 26 109/46 (67) 100 08/05/20 14:44 91 38 40 08/05/20 14:00 85 28 118/48 (71) 100 08/05/20 13:05 89 37 40 08/05/20 13:00 89 29 119/50 (73) 100 Intake and Output 08/05/20 08/06/20 19:00 07:00 Intake Total 760 ml 605 ml Output Total 1595 ml 1600 ml Balance -835 ml -995 ml Free Water 100 ml Tube Feeding 660 ml 605 ml Output Urine Total 1595 ml 1600 ml # Bowel Movements 2 3 Laboratory Tests Test 08/06/20 05:28 08/06/20 08:33 White Blood Count 10.9 K/UL (4.8-10.8) H Red Blood Count 3.36 M/UL (4.20-5.40) L Hemoglobin 9.6 G/DL (12.0-16.0) L Hematocrit 31.5 % (37.0-47.0) L Mean Corpuscular Volume 94 FL (80-99) Mean Corpuscular Hemoglobin 28.5 PG (27.0-31.0) Mean Corpuscular Hemoglobin Concent 30.4 G/DL (32.0-36.0) L Red Cell Distribution Width 18.4 % (11.6-14.8) H Platelet Count 266 K/UL (150-450) Mean Platelet Volume 7.5 FL (6.5-10.1) Neutrophils (%) (Auto) 58.5 % (45.0-75.0) Lymphocytes (%) (Auto) 22.0 % (20.0-45.0) Monocytes (%) (Auto) 7.9 % (1.0-10.0) Eosinophils (%) (Auto) 10.8 % (0.0-3.0) H Basophils (%) (Auto) 0.8 % (0.0-2.0) Sodium Level 142 MMOL/L (136-145) Potassium Level 3.7 MMOL/L (3.5-5.1) Chloride Level 98 MMOL/L (98-107) Carbon Dioxide Level 40 MMOL/L (21-32) H Anion Gap 4 mmol/L (5-15) L Blood Urea Nitrogen 25 mg/dL (7-18) H Creatinine 1.1 MG/DL (0.55-1.30) Estimat Glomerular Filtration Rate 52.8 mL/min (>60) Glucose Level 121 MG/DL (74-106) H Calcium Level 10.9 MG/DL (8.5-10.1) H Phosphorus Level 5.2 MG/DL (2.5-4.9) H Magnesium Level 1.8 MG/DL (1.8-2.4) Total Bilirubin 0.5 MG/DL (0.2-1.0) Direct Bilirubin 0.1 MG/DL (0.0-0.3) Aspartate Amino Transf (AST/SGOT) 33 U/L (15-37) Alanine Aminotransferase (ALT/SGPT) 21 U/L (12-78) Alkaline Phosphatase 66 U/L (46-116) Total Protein 7.2 G/DL (6.4-8.2) Albumin 2.8 G/DL (3.4-5.0) L Arterial Blood pH 7.458 (7.350-7.450) Arterial Blood Partial Pressure CO2 57.1 mmHg (35.0-45.0) *H Arterial Blood Partial Pressure O2 84.6 mmHg (75.0-100.0) Arterial Blood HCO3 39.5 mmol/L (22.0-26.0) H Arterial Blood Oxygen Saturation 95.6 % (95-100) Arterial Blood Base Excess 13.7 (-2-2) *H Jeremiah Test Positive Microbiology Date/Time Source Procedure Growth Status 08/05/20 16:20 Nasopharynx Coronavirus COVID-19 PCR ([facility]) - Final Complete Objective HEAD AND NECK: Status post tracheostomy LUNGS: Coarse rhonchi. Right ThoraVent in place CARDIOVASCULAR: Regular S1 and S2 with no gallop. ABDOMEN: Soft.S/P PEG EXTREMITIES: 1+ pitting edema. Hill Burger MD Aug 06, 2020 12:38
--- NOTE | 2020-08-06 12:50 | NUR ---
*-*DISCHARGE PLAN*-* PATIENT HAS BEEN ACCEPTED AND WILL BE DISCHARGE TO: [facility] [place] P: [phone] FOR NURSE TO NURSE REPORT ROOM# 229.A [facility] SET FOR 4PM S/W BETO [id number]. S/W PATIENTS NIECE, WHO IS IN AGREEMENT WITH DISCHARGE PLAN.
--- NOTE | 2020-08-06 13:15 | Hematology/Onc Progress Note ---
Assessment/Plan Assessment/Plan # Deep vein thrombosis of the right calf --> given onoing anemia and low plts --> consider ivc if bleeding--once stable, needs it placed --> once stable, for radiology and ivc filter placement --> on lovenox bid now # Thrombocytopenia is due to infection/underlying covid19+++ --> ABX ceftriaxone -->zosyn-->off-->meropenem/vanc --> on steriods likely cause of initial wbc --> per pulm --> plt 107->156-->192-->205 --> smear reviewed # Leukocytosis due to Pneumonia due to COVID-19 virus --> per pulm rx -> sp remdesivir --> ABX vanc/meropenem --> wbc 11.9-->11-->21-->8.8-->11.7-->13-->24-->9 # Anemia due to chronic disease --> hgb goal is >7 --> transfuse prn --> ferritin is >1000 --> hold off on iron --> 10-->9.8->9-->8-->8.2->>7.1-->7.9->7.5-->9.5-->8.5-->8.8->8.4->8.9 --> 1 unit prbc 07/24 # Elevated ddimer due to covid19++ --> duplex legs is negative --> underlying covid rx # Hypoxia -> due to covid19 --> steriods as needed # Hypoxemia --> rx same as above # Respiratory failure --> on vent/trach --> per pulm # Diabetes mellitus out of control --> hgb a1c goal <7 # Dysphagia --> s/p peg # Poor prognosis # Dvt ppx ivc filter once more stable --> dvt ppx now lovenox sq Appreciate consultation and bowen RN Subjective Allergies: Coded Allergies: No Known Allergies (Unverified , 05/28/20) All Systems: reviewed and negative except above Subjective 06/10 nv, on vent, with ogt, on fentanyl and versed, plt stable 06/11 nv, vent adjusted is on ogt, meds reviewed 06/12 nv, vent, meds noted, labs noted, no bleeding, hgb 10.4 06/13 nv, is on vent, meds reviewed, no bleeding, cbc reviewed 06/14 nv, on vent, tachy, labs reviewed, gross hematuria, febrile overnight, abx 06/17 nv, on vent, labs noted, no major changes, feeling better overnight 06/18 nv, meds reviewed, labs noted, no major events, hgb 8.6 06/19 nv, remains intubated, with fluids, labs reviewed, meds noted 06/20 nv, intubated remains on restraints, meds noted as well, as labs 06/21 nv, remains on vent, on restraints, meds reviewed, labs noted 06/22: covering Dr. Del Cid no acute events 06/23 sedated, on vent, nv, intubated, meds reviewed, versed 06/24 nv, on vent, no night sweats, no bleeding, remains in icu 06/25 nv, on vent, icu, meds noted, no bleeding, comfortable 06/26 nv, on versed, icu, weaning parameters, labs noted 06/27 nv, overnight fighting vent, as per pulm fentanyl on board 06/28 nv, on vent, labs reviewed, as per pulm, meds noted 06/30 nv, icu, labs pending, is on fentanyl, versed, no new changes 07/01 nv, icu, is on vent, labs pending, no new changes per rn 07/02 nv, icu is on vent, labs noted, hgb is stable 07/03 nv, icu, is on vent, potential trrach when stable, cbc reviewed 07/04 icu, nv, labs are noted, stable for trach today dw Rn Dl 07/05 icu, nv, on vent, with ng and picc in place, labs noted, s/p trach 07/07 icu, nv, on tv, no bleeding, labs noted, meds reviewed 07/08 icu, nv, on tv, labs reviewed, meds noted, no bleeding 07/09 icu, nv, meds noted, no bleeding, blood transfusion was completed 07/10 icu, nv, labs ntoed, no bleeding, hgb improved, hgb 7.8 07/11 icu, nv, labs reviewed, hgb is improved, for ivcf if stabilizes 07/12 icu, nv, labs reviewed, meds noted, no bleeding, remains on vent 07/13 icu, on vent, nv, no bleeding, labs reviewed, no major events, bowen rn 07/14 icu, on vent, nv, tolerating ngt feeds, bowen Rn, meds reviewed 07/15 icu, on vent, trach, tolerating ngt, meds noted, no bleeding 07/16 icu, vent, labs are noted, with trach, is stable, hgb 9.2 07/17 icu, had a bm overnight, remains on vent with trach, labs noted 07/18 icu, nv, labs are ntoed, no bleeding, on trach, on levophed 07/20 nc, icu, meds noted, v/t, no bleeding, labs noted, on versed 07/21 nv, trach/vent, tube feeds on hold, labs reviewed, icu 07/22 nv, icu, bp remains high, on v/t, labs noted, no bleeding 07/23 nv, ct is in place, on v/t, meds reviewed, in icu, on LEVO 07/24 nv, ct with blood secretions, to get 1 unit prbc today, icu 07/25 icu, nv, trach/v, obtunded, sedated, no bleeding, bowen rn 07/26 icu, nv, v/t, with gt, remains obtunded, as well as sedated, labs noted 07/27: no events. 07/28: remains intubated on vent 07/29 agitated, tachypneic, tachycardic is on vent, labs reviewed, meds noted 07/30 vent setting adjusted, is afebrile, no bleeding, tachycardic, labs noted 07/31 icu, trach/vent, on fentanyl gtt, labs reviewed, no bleeding 08/01 icu, nv, on t/v, fentanyl, hgb 9.4, no hemolysis, meds noted 08/02 icu, nv, t/v, labs reviewed, meds noted, no bleeding, did have vomiting o/n 08/04 nv, is in icu, labs reviewed, meds noted, no bleeding, bowen rn 08/05 nv, icu, meds reviewed, bowen rn, no major bleeding 08/06 awaiting covid test repeat, in icu, meds noted, on t/v, nv Objective Objective Current Medications Medications (Trade) Dose Ordered Sig/Zelda Route PRN Reason Start Time Stop Time Status Last Admin Dose Admin Acetaminophen (Tylenol) 650 mg Q4H PRN NG Temp >100.5 07/27/20 03:45 08/26/20 03:44 08/04/20 08:41 Acetaminophen/ Hydrocodone Bitart ([place] 5/325) 1 tab Q4H PRN ORAL Moderate Pain (Pain Scale 4-6) 08/02/20 10:45 08/09/20 10:44 08/03/20 05:24 Acetazolamide (Diamox) 250 mg Q6HR GT 08/05/20 12:00 08/07/20 06:01 08/06/20 12:07 Calcitonin [place] (Miacalcin) 1 sprays DAILY NASAL 07/22/20 14:00 10/20/20 13:59 08/06/20 08:30 Dextrose (Dextrose 50%) 25 ml Q30M PRN IV Hypoglycemia 06/05/20 10:45 09/03/20 10:44 Dextrose (Dextrose 50%) 50 ml Q30M PRN IV Hypoglycemia 06/05/20 10:45 09/03/20 10:44 Docusate Sodium (Colace) 100 mg EVERY 12 HOURS GT 08/01/20 21:00 08/25/20 17:59 08/06/20 08:30 Enoxaparin Sodium (Lovenox) 100 mg EVERY 12 HOURS SUBQ 08/04/20 09:00 10/15/20 20:59 08/06/20 08:33 Guaifenesin/ Codeine Phosphate (Robitussin with codeine) 5 ml Q6H PRN NG For Cough 07/14/20 14:15 08/13/20 14:14 07/18/20 21:44 Hydromorphone HCl (Dilaudid) 2 mg Q4H PRN IVP Severe Pain (Pain Scale 7-10) 08/05/20 06:45 08/09/20 10:44 Lansoprazole (Prevacid) 30 mg DAILY GT 07/18/20 09:00 08/09/20 08:59 08/06/20 08:30 Levofloxacin (Levaquin) 750 mg DAILY ORAL 08/03/20 12:00 08/10/20 11:59 08/06/20 08:30 Lorazepam (Ativan 2mg/ml 1ml) 1 mg Q4H PRN IV For Anxiety 08/02/20 13:45 08/09/20 13:44 08/02/20 22:19 Metoclopramide HCl (Reglan) 10 mg Q6H IVP 08/01/20 18:00 08/31/20 17:59 08/06/20 12:07 Midodrine (Pro-Amatine) 10 mg Q8H PRN GT BP below 100 systolic 08/06/20 10:30 11/04/20 10:29 Ondansetron HCl (Zofran) 4 mg Q6H PRN IVP Nausea & Vomiting 08/02/20 10:00 09/01/20 09:59 Pamidronate Disodium 60 mg/ Sodium Chloride 550 ml @ 137.5 mls/ hr ONCE ONCE IVPB 08/06/20 12:00 08/06/20 15:59 08/06/20 12:07 Polyethylene Glycol (Miralax) 17 gm BEDTIME ORAL 07/26/20 21:00 08/25/20 20:59 08/05/20 21:13 Quetiapine Fumarate (SEROqueL) 75 mg Q8HR GT 08/02/20 14:00 08/30/20 13:59 08/06/20 05:35 Last 24 Hour Vital Signs Date Time Temp Pulse Resp B/P (MAP) Pulse Ox O2 Delivery O2 Flow Rate FiO2 08/06/20 13:00 89 30 147/107 (120) 99 08/06/20 12:30 89 26 130/67 (88) 100 08/06/20 12:00 87 08/06/20 12:00 88 23 141/67 (91) 100 08/06/20 12:00 35 08/06/20 12:00 98.4 87 30 141/67 (91) 100 08/06/20 11:30 89 20 125/61 (82) 100 08/06/20 11:00 97 21 129/54 (79) 100 08/06/20 10:00 97 24 126/66 (86) 99 08/06/20 10:00 99 20 126/66 (86) 100 08/06/20 09:00 96 30 123/67 (85) 100 08/06/20 08:00 35 08/06/20 08:00 92 08/06/20 08:00 99.3 88 29 116/47 (70) 100 08/06/20 08:00 Mechanical Ventilator Mechanical Ventilator 08/06/20 07:00 101 24 121/60 (80) 98 08/06/20 06:30 98 27 150/65 (93) 99 08/06/20 06:00 96 27 147/70 (95) 100 08/06/20 05:30 95 24 143/76 (98) 100 08/06/20 05:12 98 38 35 08/06/20 05:00 95 26 131/66 (87) 98 08/06/20 04:00 107 21 126/67 (86) 97 08/06/20 04:00 Mechanical Ventilator Mechanical Ventilator 08/06/20 04:00 96 08/06/20 04:00 35 08/06/20 03:30 96 23 135/66 (89) 100 08/06/20 03:15 102 37 35 08/06/20 03:00 103 23 122/63 (82) 95 08/06/20 02:30 106 25 139/77 (97) 98 08/06/20 02:00 108 30 100/49 (66) 96 08/06/20 01:20 106 34 35 08/06/20 01:00 98 24 118/69 (85) 100 08/06/20 00:30 93 27 121/82 (95) 100 08/06/20 00:00 95 08/06/20 00:00 Mechanical Ventilator Mechanical Ventilator 08/06/20 00:00 40 08/06/20 00:00 98 29 131/95 (107) 100 08/05/20 23:30 100 25 123/66 (85) 100 08/05/20 23:00 100 21 132/50 (77) 100 08/05/20 22:43 99 36 40 08/05/20 22:30 98 26 143/84 (103) 100 08/05/20 22:00 99 26 123/79 (94) 100 08/05/20 21:30 92 25 124/97 (106) 100 08/05/20 21:24 90 39 40 08/05/20 21:00 94 20 121/68 (85) 100 08/05/20 20:30 89 28 114/77 (89) 100 08/05/20 20:00 93 26 119/62 (81) 99 08/05/20 20:00 90 08/05/20 20:00 40 08/05/20 20:00 Mechanical Ventilator Mechanical Ventilator 08/05/20 19:29 89 40 40 08/05/20 19:00 89 22 122/89 (100) 100 08/05/20 18:00 92 23 109/71 (84) 100 08/05/20 17:15 93 37 40 08/05/20 17:00 95 33 121/53 (75) 100 08/05/20 16:00 Mechanical Ventilator Mechanical Ventilator 08/05/20 16:00 86 08/05/20 16:00 99.0 92 27 119/60 (79) 100 08/05/20 16:00 40 08/05/20 15:00 93 26 109/46 (67) 100 08/05/20 14:44 91 38 40 08/05/20 14:00 85 28 118/48 (71) 100 08/05/20 13:05 89 37 40 08/05/20 13:00 89 29 119/50 (73) 100 08/05/20 12:00 Mechanical Ventilator Mechanical Ventilator 08/05/20 12:00 98.0 85 30 128/60 (82) 100 08/05/20 12:00 89 08/05/20 12:00 40 08/05/20 11:26 98 46 40 08/05/20 11:20 40 08/05/20 11:00 98 26 125/70 (88) 96 08/05/20 10:00 101 26 132/55 (80) 93 08/05/20 09:35 98 32 35 08/05/20 09:00 96 29 125/57 (79) 94 08/05/20 08:00 97.8 85 27 129/65 (86) 93 08/05/20 08:00 79 08/05/20 08:00 Mechanical Ventilator Mechanical Ventilator 08/05/20 08:00 35 08/05/20 07:44 89 27 35 08/05/20 07:15 83 33 40 08/05/20 07:00 40 08/05/20 07:00 83 28 122/94 (103) 99 08/05/20 06:30 81 31 133/70 (91) 99 08/05/20 06:00 86 30 130/54 (79) 100 08/05/20 05:30 81 25 133/45 (74) 100 08/05/20 05:00 88 30 133/61 (85) 100 08/05/20 04:00 85 31 125/57 (79) 100 08/05/20 04:00 45 08/05/20 04:00 Mechanical Ventilator Mechanical Ventilator 08/05/20 03:48 85 08/05/20 03:30 89 29 136/60 (85) 100 08/05/20 03:15 83 29 45 08/05/20 03:00 86 24 132/56 (81) 100 08/05/20 02:00 87 26 130/56 (80) 100 08/05/20 01:00 88 23 138/62 (87) 100 08/05/20 00:30 98 25 138/47 (77) 100 08/05/20 00:00 Mechanical Ventilator Mechanical Ventilator 08/05/20 00:00 50 08/05/20 00:00 84 28 132/71 (91) 100 08/05/20 00:00 96 08/04/20 23:30 88 18 124/51 (75) 99 08/04/20 23:10 93 30 50 08/04/20 23:00 85 28 122/48 (72) 100 08/04/20 22:00 89 29 131/59 (83) 100 08/04/20 21:00 80 35 131/68 (89) 100 08/04/20 20:00 50 08/04/20 20:00 87 08/04/20 20:00 Mechanical Ventilator Mechanical Ventilator 08/04/20 20:00 99.0 99 26 129/56 (80) 100 08/04/20 19:15 75 27 50 08/04/20 19:00 89 18 127/42 (70) 100 08/04/20 18:00 88 21 129/54 (79) 100 08/04/20 17:02 99.6 95 28 112/64 (80) 100 08/04/20 16:02 97 08/04/20 16:00 50 08/04/20 16:00 Mechanical Ventilator Mechanical Ventilator 08/04/20 16:00 98 25 108/59 (75) 100 08/04/20 15:09 93 30 50 08/04/20 15:00 105 21 126/59 (81) 100 08/04/20 14:00 99 31 124/62 (82) 100 Intake and Output 08/05/20 08/06/20 19:00 07:00 Intake Total 760 ml 605 ml Output Total 1595 ml 1600 ml Balance -835 ml -995 ml Free Water 100 ml Tube Feeding 660 ml 605 ml Output Urine Total 1595 ml 1600 ml # Bowel Movements 2 3 Labs Test 08/03/20 13:17 08/04/20 04:24 08/04/20 07:50 08/05/20 11:00 POC Whole Blood Glucose 121 MG/DL (74-106) White Blood Count 7.9 K/UL (4.8-10.8) Red Blood Count 3.14 M/UL (4.20-5.40) Hemoglobin 8.9 G/DL (12.0-16.0) Hematocrit 29.8 % (37.0-47.0) Mean Corpuscular Volume 95 FL (80-99) Mean Corpuscular Hemoglobin 28.5 PG (27.0-31.0) Mean Corpuscular Hemoglobin Concent 30.0 G/DL (32.0-36.0) Red Cell Distribution Width 18.2 % (11.6-14.8) Platelet Count 260 K/UL (150-450) Mean Platelet Volume 7.1 FL (6.5-10.1) Neutrophils (%) (Auto) 56.3 % (45.0-75.0) Lymphocytes (%) (Auto) 22.3 % (20.0-45.0) Monocytes (%) (Auto) 10.1 % (1.0-10.0) Eosinophils (%) (Auto) 10.2 % (0.0-3.0) Basophils (%) (Auto) 1.0 % (0.0-2.0) Sodium Level 145 MMOL/L (136-145) Potassium Level 3.5 MMOL/L (3.5-5.1) Chloride Level 96 MMOL/L (98-107) Carbon Dioxide Level > 45 MMOL/L (21-32) Blood Urea Nitrogen 24 mg/dL (7-18) Creatinine 1.1 MG/DL (0.55-1.30) Estimat Glomerular Filtration Rate 52.8 mL/min (>60) Glucose Level 120 MG/DL (74-106) Calcium Level 9.1 MG/DL (8.5-10.1) Phosphorus Level 3.6 MG/DL (2.5-4.9) Magnesium Level 1.7 MG/DL (1.8-2.4) Total Bilirubin 0.7 MG/DL (0.2-1.0) Aspartate Amino Transf (AST/SGOT) 25 U/L (15-37) Alanine Aminotransferase (ALT/SGPT) 19 U/L (12-78) Alkaline Phosphatase 70 U/L (46-116) Total Protein 6.8 G/DL (6.4-8.2) Albumin 2.6 G/DL (3.4-5.0) Globulin 4.2 g/dL Albumin/Globulin Ratio 0.6 (1.0-2.7) Arterial Blood pH 7.480 (7.350-7.450) 7.517 (7.350-7.450) Arterial Blood Partial Pressure CO2 70.4 mmHg (35.0-45.0) 59.5 mmHg (35.0-45.0) Arterial Blood Partial Pressure O2 79.4 mmHg (75.0-100.0) 55.0 mmHg (75.0-100.0) Arterial Blood HCO3 51.3 mmol/L (22.0-26.0) 47.2 mmol/L (22.0-26.0) Arterial Blood Oxygen Saturation 95.4 % (95-100) 88.2 % (95-100) Arterial Blood Base Excess 24.5 (-2-2) 21.5 (-2-2) Jeremiah Test Positive Positive Test 08/06/20 05:28 08/06/20 08:33 White Blood Count 10.9 K/UL (4.8-10.8) Red Blood Count 3.36 M/UL (4.20-5.40) Hemoglobin 9.6 G/DL (12.0-16.0) Hematocrit 31.5 % (37.0-47.0) Mean Corpuscular Volume 94 FL (80-99) Mean Corpuscular Hemoglobin 28.5 PG (27.0-31.0) Mean Corpuscular Hemoglobin Concent 30.4 G/DL (32.0-36.0) Red Cell Distribution Width 18.4 % (11.6-14.8) Platelet Count 266 K/UL (150-450) Mean Platelet Volume 7.5 FL (6.5-10.1) Neutrophils (%) (Auto) 58.5 % (45.0-75.0) Lymphocytes (%) (Auto) 22.0 % (20.0-45.0) Monocytes (%) (Auto) 7.9 % (1.0-10.0) Eosinophils (%) (Auto) 10.8 % (0.0-3.0) Basophils (%) (Auto) 0.8 % (0.0-2.0) Sodium Level 142 MMOL/L (136-145) Potassium Level 3.7 MMOL/L (3.5-5.1) Chloride Level 98 MMOL/L (98-107) Carbon Dioxide Level 40 MMOL/L (21-32) Anion Gap 4 mmol/L (5-15) Blood Urea Nitrogen 25 mg/dL (7-18) Creatinine 1.1 MG/DL (0.55-1.30) Estimat Glomerular Filtration Rate 52.8 mL/min (>60) Glucose Level 121 MG/DL (74-106) Calcium Level 10.9 MG/DL (8.5-10.1) Phosphorus Level 5.2 MG/DL (2.5-4.9) Magnesium Level 1.8 MG/DL (1.8-2.4) Total Bilirubin 0.5 MG/DL (0.2-1.0) Direct Bilirubin 0.1 MG/DL (0.0-0.3) Aspartate Amino Transf (AST/SGOT) 33 U/L (15-37) Alanine Aminotransferase (ALT/SGPT) 21 U/L (12-78) Alkaline Phosphatase 66 U/L (46-116) Total Protein 7.2 G/DL (6.4-8.2) Albumin 2.8 G/DL (3.4-5.0) Arterial Blood pH 7.458 (7.350-7.450) Arterial Blood Partial Pressure CO2 57.1 mmHg (35.0-45.0) Arterial Blood Partial Pressure O2 84.6 mmHg (75.0-100.0) Arterial Blood HCO3 39.5 mmol/L (22.0-26.0) Arterial Blood Oxygen Saturation 95.6 % (95-100) Arterial Blood Base Excess 13.7 (-2-2) Jeremiah Test Positive Micro Microbiology Date/Time Source Procedure Growth Status 08/05/20 16:20 Nasopharynx Coronavirus COVID-19 PCR ([facility]) - Final Complete Height (Feet): 5 Height (Inches): 5.00 Weight (Pounds): 223 Objective GeNL: nv HEENT: ngt++ Pulm: vent/trach++ CV: rrr Abd: soft, nt, nd ++gt Ext: no cce Myron Condon MD Aug 06, 2020 13:15
--- NOTE | 2020-08-06 14:30 | NUR ---
Per Charge, RN, pt to be d/c'd. Pt remains with chest tube. Charge, RN spoke with Dr. Devine who stated chest tube to be possibly removed tomorrow with earliest d/c date anticipated for .
--- NOTE | 2020-08-06 14:52 | General Progress Note ---
Subjective Constitutional: Reports: weakness Allergies: Coded Allergies: No Known Allergies (Unverified , 05/28/20) All Systems: reviewed and negative except above Subjective trach vent chest tube in icu Objective Last 24 Hour Vital Signs Date Time Temp Pulse Resp B/P (MAP) Pulse Ox O2 Delivery O2 Flow Rate FiO2 08/06/20 14:00 87 21 104/46 (65) 100 08/06/20 13:00 89 30 147/107 (120) 99 08/06/20 12:30 89 26 130/67 (88) 100 08/06/20 12:00 87 08/06/20 12:00 Mechanical Ventilator Mechanical Ventilator 08/06/20 12:00 88 23 141/67 (91) 100 08/06/20 12:00 35 08/06/20 12:00 98.4 87 30 141/67 (91) 100 08/06/20 11:30 89 20 125/61 (82) 100 08/06/20 11:00 97 21 129/54 (79) 100 08/06/20 10:00 97 24 126/66 (86) 99 08/06/20 10:00 99 20 126/66 (86) 100 08/06/20 09:00 96 30 123/67 (85) 100 08/06/20 08:00 35 08/06/20 08:00 92 08/06/20 08:00 99.3 88 29 116/47 (70) 100 08/06/20 08:00 Mechanical Ventilator Mechanical Ventilator 08/06/20 07:00 101 24 121/60 (80) 98 08/06/20 06:30 98 27 150/65 (93) 99 08/06/20 06:00 96 27 147/70 (95) 100 08/06/20 05:30 95 24 143/76 (98) 100 08/06/20 05:12 98 38 35 08/06/20 05:00 95 26 131/66 (87) 98 08/06/20 04:00 107 21 126/67 (86) 97 08/06/20 04:00 Mechanical Ventilator Mechanical Ventilator 08/06/20 04:00 96 08/06/20 04:00 35 08/06/20 03:30 96 23 135/66 (89) 100 08/06/20 03:15 102 37 35 08/06/20 03:00 103 23 122/63 (82) 95 08/06/20 02:30 106 25 139/77 (97) 98 08/06/20 02:00 108 30 100/49 (66) 96 08/06/20 01:20 106 34 35 08/06/20 01:00 98 24 118/69 (85) 100 08/06/20 00:30 93 27 121/82 (95) 100 08/06/20 00:00 95 08/06/20 00:00 Mechanical Ventilator Mechanical Ventilator 08/06/20 00:00 40 08/06/20 00:00 98 29 131/95 (107) 100 08/05/20 23:30 100 25 123/66 (85) 100 08/05/20 23:00 100 21 132/50 (77) 100 08/05/20 22:43 99 36 40 08/05/20 22:30 98 26 143/84 (103) 100 08/05/20 22:00 99 26 123/79 (94) 100 08/05/20 21:30 92 25 124/97 (106) 100 08/05/20 21:24 90 39 40 08/05/20 21:00 94 20 121/68 (85) 100 08/05/20 20:30 89 28 114/77 (89) 100 08/05/20 20:00 93 26 119/62 (81) 99 08/05/20 20:00 90 08/05/20 20:00 40 08/05/20 20:00 Mechanical Ventilator Mechanical Ventilator 08/05/20 19:29 89 40 40 08/05/20 19:00 89 22 122/89 (100) 100 08/05/20 18:00 92 23 109/71 (84) 100 08/05/20 17:15 93 37 40 08/05/20 17:00 95 33 121/53 (75) 100 08/05/20 16:00 Mechanical Ventilator Mechanical Ventilator 08/05/20 16:00 86 08/05/20 16:00 99.0 92 27 119/60 (79) 100 08/05/20 16:00 40 08/05/20 15:00 93 26 109/46 (67) 100 Intake and Output 08/05/20 08/06/20 19:00 07:00 Intake Total 760 ml 605 ml Output Total 1595 ml 1600 ml Balance -835 ml -995 ml Free Water 100 ml Tube Feeding 660 ml 605 ml Output Urine Total 1595 ml 1600 ml # Bowel Movements 2 3 Laboratory Tests 08/06/20 05:28: White Blood Count 10.9H, Red Blood Count 3.36L, Hemoglobin 9.6L, Hematocrit 31.5L, Mean Corpuscular Volume 94, Mean Corpuscular Hemoglobin 28.5, Mean Corpuscular Hemoglobin Concent 30.4L, Red Cell Distribution Width 18.4H, Platelet Count 266, Mean Platelet Volume 7.5, Neutrophils (%) (Auto) 58.5, Lymphocytes (%) (Auto) 22.0, Monocytes (%) (Auto) 7.9, Eosinophils (%) (Auto) 10.8H, Basophils (%) (Auto) 0.8, Sodium Level 142, Potassium Level 3.7, Chloride Level 98, Carbon Dioxide Level 40H, Anion Gap 4L, Blood Urea Nitrogen 25H, Creatinine 1.1, Estimat Glomerular Filtration Rate 52.8, Glucose Level 121H, Calcium Level 10.9H, Phosphorus Level 5.2H, Magnesium Level 1.8, Total Bilirubin 0.5, Direct Bilirubin 0.1, Aspartate Amino Transf (AST/SGOT) 33, Alanine Aminotransferase (ALT/SGPT) 21, Alkaline Phosphatase 66, Total Protein 7.2, Albumin 2.8L 08/06/20 08:33: Arterial Blood pH 7.458H, Arterial Blood Partial Pressure CO2 57.1*H, Arterial Blood Partial Pressure O2 84.6, Arterial Blood HCO3 39.5H, Arterial Blood Oxygen Saturation 95.6, Arterial Blood Base Excess 13.7*H, Jeremiah Test Positive Height (Feet): 5 Height (Inches): 5.00 Weight (Pounds): 223 General Appearance: lethargic EENT: normal ENT inspection Neck: normal alignment Cardiovascular: normal peripheral pulses, normal rate, regular rhythm Respiratory/Chest: chest wall non-tender, lungs clear, normal breath sounds Abdomen: normal bowel sounds, non tender, soft Extremities: normal inspection Edema: no edema noted Arm (L), no edema noted Arm (R), no edema noted Leg (L), no edema noted Leg (R), no edema noted Pedal (L), no edema noted Pedal (R), no edema noted Generalized Neurologic: motor weakness Skin: normal pigmentation, warm/dry Assessment/Plan Problem List: (1) Hypoxia ICD Codes: R09.02 - Hypoxemia SNOMED: 068439820 (2) Respiratory failure ICD Codes: J96.90 - Respiratory failure, unspecified, unspecified whether with hypoxia or hypercapnia SNOMED: 068548562 (3) Respiratory distress ICD Codes: R06.03 - Acute respiratory distress; J12.82 - Pneumonia due to coronavirus disease 2019 SNOMED: 827831533 (4) Pneumonia due to COVID-19 virus ICD Codes: U07.1 - COVID-19; J12.82 - Pneumonia due to coronavirus disease 2019 SNOMED: 494678786246427499 Status: unchanged Assessment/Plan: vent abx id wean chest tube pulm f/u cbc bmp am dc plan Tank Del Cid DO Aug 06, 2020 14:52
--- NOTE | 2020-08-06 16:40 | NUR ---
RESPIRATORY NOTES Per MD's verbal order, PT has been taken off the ventilator and placed on cool aerosol - 10L, 40%, via T-piece. PT does not show any current signs of respiratory distress - SaO2 100%. Ventilator remains on standby in PT's room. RAKEL goncalves. Will continue to monitor.
--- NOTE | 2020-08-06 17:08 | NUR ---
[employer] FAXED TO [facility] T: [phone] EXT [phone] F: [phone]
--- NOTE | 2020-08-06 19:11 | NUR ---
Report given to RAKEL Ferreira. Pt on trach collar. Pt in NAD. Pt resting with eyes closed. Care continues.
[2020-08-06] MEDS: Miralax 17gm pkt ORAL SCH (20:32)
[2020-08-07] VITALS (35 sets, daily range): BP systolic 81–140; BP diastolic 48–81
[2020-08-07] MEDS: Metoclopramide 10mg/2ml Inj IVP SCH ×4 (00:36→17:37)
[2020-08-07 05:17] LABS: INR 1.2 (0.9-1.1)
[2020-08-07 05:22] LABS: BASOPHILS % (AUTO) 0.9 % (0.0-2.0); EOSINOPHILS % (AUTO) 16.8 % (0.0-3.0); HEMATOCRIT 29.8 % (37.0-47.0); LYMPHOCYTES % (AUTO) 29.9 % (20.0-45.0); MEAN CORPUSCULAR VOLUME 94 FL (80-99); MONOCYTES % (AUTO) 9.3 % (1.0-10.0); NEUTROPHILS % (AUTO) 43.1 % (45.0-75.0); PLATELET COUNT 213 K/UL (150-450); RED BLOOD COUNT 3.17 M/UL (4.20-5.40); RED CELL DISTRIBUTION WIDTH 18.2 % (11.6-14.8); WHITE BLOOD COUNT 8.1 K/UL (4.8-10.8)
[2020-08-07 05:32] LABS: ALBUMIN 2.5 G/DL (3.4-5.0); ALBUMIN/GLOBULIN RATIO 0.6 (1.0-2.7); BILIRUBIN,TOTAL 0.6 MG/DL (0.2-1.0); CALCIUM 10.5 MG/DL (8.5-10.1); CREATININE 1.2 MG/DL (0.55-1.30); POTASSIUM 3.2 MMOL/L (3.5-5.1)
--- NOTE | 2020-08-07 06:58 | Hematology/Onc Progress Note ---
Assessment/Plan Assessment/Plan # Deep vein thrombosis of the right calf --> given onoing anemia and low plts --> consider ivc if bleeding--once stable, needs it placed --> once stable, for radiology for ivc filter placement --> on lovenox bid now # Thrombocytopenia is due to infection/underlying covid19+++ --> ABX ceftriaxone -->zosyn-->off-->meropenem/vanc-->off --> on steriods likely cause of initial wbc --> per pulm --> plt 107->156-->192-->205 --> smear reviewed # Leukocytosis due to Pneumonia due to COVID-19 virus --> per pulm rx -> sp remdesivir --> ABX vas per above --> wbc 11.9-->11-->21-->8.8-->11.7-->13-->24-->9 # Anemia due to chronic disease --> hgb goal is >7 --> transfuse prn --> ferritin is >1000 --> hold off on iron --> 10-->9.8->9-->8-->8.2->>7.1-->7.9->7.5-->9.5-->8.5-->8.8->8.4->8.9->9 --> 1 unit prbc 07/24 # Elevated ddimer due to covid19++ --> duplex legs is negative --> underlying covid rx # Hypoxia -> due to covid19 --> steriods as needed # Hypoxemia --> rx same as above # Respiratory failure --> on vent/trach --> per pulm # Diabetes mellitus out of control --> hgb a1c goal <7 # Dysphagia --> s/p peg # Poor prognosis # Dvt ppx ivc filter once more stable --> dvt ppx now lovenox sq Appreciate consultation and dw RN Subjective Allergies: Coded Allergies: No Known Allergies (Unverified , 05/28/20) All Systems: reviewed and negative except above Subjective 06/10 nv, on vent, with ogt, on fentanyl and versed, plt stable 06/11 nv, vent adjusted is on ogt, meds reviewed 06/12 nv, vent, meds noted, labs noted, no bleeding, hgb 10.4 06/13 nv, is on vent, meds reviewed, no bleeding, cbc reviewed 06/14 nv, on vent, tachy, labs reviewed, gross hematuria, febrile overnight, abx 06/17 nv, on vent, labs noted, no major changes, feeling better overnight 06/18 nv, meds reviewed, labs noted, no major events, hgb 8.6 06/19 nv, remains intubated, with fluids, labs reviewed, meds noted 06/20 nv, intubated remains on restraints, meds noted as well, as labs 06/21 nv, remains on vent, on restraints, meds reviewed, labs noted 06/22: covering Dr. Del Cid no acute events 06/23 sedated, on vent, nv, intubated, meds reviewed, versed 06/24 nv, on vent, no night sweats, no bleeding, remains in icu 06/25 nv, on vent, icu, meds noted, no bleeding, comfortable 06/26 nv, on versed, icu, weaning parameters, labs noted 06/27 nv, overnight fighting vent, as per pulm fentanyl on board 06/28 nv, on vent, labs reviewed, as per pulm, meds noted 06/30 nv, icu, labs pending, is on fentanyl, versed, no new changes 07/01 nv, icu, is on vent, labs pending, no new changes per rn 07/02 nv, icu is on vent, labs noted, hgb is stable 07/03 nv, icu, is on vent, potential trrach when stable, cbc reviewed 07/04 icu, nv, labs are noted, stable for trach today dw Rn Dl 07/05 icu, nv, on vent, with ng and picc in place, labs noted, s/p trach 07/07 icu, nv, on tv, no bleeding, labs noted, meds reviewed 07/08 icu, nv, on tv, labs reviewed, meds noted, no bleeding 07/09 icu, nv, meds noted, no bleeding, blood transfusion was completed 07/10 icu, nv, labs ntoed, no bleeding, hgb improved, hgb 7.8 07/11 icu, nv, labs reviewed, hgb is improved, for ivcf if stabilizes 07/12 icu, nv, labs reviewed, meds noted, no bleeding, remains on vent 07/13 icu, on vent, nv, no bleeding, labs reviewed, no major events, bowen rn 07/14 icu, on vent, nv, tolerating ngt feeds, bowen Rn, meds reviewed 07/15 icu, on vent, trach, tolerating ngt, meds noted, no bleeding 07/16 icu, vent, labs are noted, with trach, is stable, hgb 9.2 07/17 icu, had a bm overnight, remains on vent with trach, labs noted 07/18 icu, nv, labs are ntoed, no bleeding, on trach, on levophed 07/20 nc, icu, meds noted, v/t, no bleeding, labs noted, on versed 07/21 nv, trach/vent, tube feeds on hold, labs reviewed, icu 07/22 nv, icu, bp remains high, on v/t, labs noted, no bleeding 07/23 nv, ct is in place, on v/t, meds reviewed, in icu, on LEVO 07/24 nv, ct with blood secretions, to get 1 unit prbc today, icu 07/25 icu, nv, trach/v, obtunded, sedated, no bleeding, bowen rn 07/26 icu, nv, v/t, with gt, remains obtunded, as well as sedated, labs noted 07/27: no events. 07/28: remains intubated on vent 07/29 agitated, tachypneic, tachycardic is on vent, labs reviewed, meds noted 07/30 vent setting adjusted, is afebrile, no bleeding, tachycardic, labs noted 07/31 icu, trach/vent, on fentanyl gtt, labs reviewed, no bleeding 08/01 icu, nv, on t/v, fentanyl, hgb 9.4, no hemolysis, meds noted 08/02 icu, nv, t/v, labs reviewed, meds noted, no bleeding, did have vomiting o/n 08/04 nv, is in icu, labs reviewed, meds noted, no bleeding, bowen rn 08/05 nv, icu, meds reviewed, bowen rn, no major bleeding 08/06 awaiting covid test repeat, in icu, meds noted, on t/v, nv 08/07 trach collar, icu, is on 10l, meds noted, labs reviewed Objective Objective Current Medications Medications (Trade) Dose Ordered Sig/Zelda Route PRN Reason Start Time Stop Time Status Last Admin Dose Admin Acetaminophen (Tylenol) 650 mg Q4H PRN NG Temp >100.5 07/27/20 03:45 08/26/20 03:44 08/04/20 08:41 Acetaminophen/ Hydrocodone Bitart (Severy 5/325) 1 tab Q4H PRN ORAL Moderate Pain (Pain Scale 4-6) 08/02/20 10:45 08/09/20 10:44 08/03/20 05:24 Calcitonin Rosanky (Miacalcin) 1 sprays DAILY NASAL 07/22/20 14:00 10/20/20 13:59 08/06/20 08:30 Dextrose (Dextrose 50%) 25 ml Q30M PRN IV Hypoglycemia 06/05/20 10:45 09/03/20 10:44 Dextrose (Dextrose 50%) 50 ml Q30M PRN IV Hypoglycemia 06/05/20 10:45 09/03/20 10:44 Docusate Sodium (Colace) 100 mg EVERY 12 HOURS GT 08/01/20 21:00 08/25/20 17:59 08/06/20 20:32 Enoxaparin Sodium (Lovenox) 100 mg EVERY 12 HOURS SUBQ 08/04/20 09:00 10/15/20 20:59 08/06/20 20:43 Guaifenesin/ Codeine Phosphate (Robitussin with codeine) 5 ml Q6H PRN NG For Cough 07/14/20 14:15 08/13/20 14:14 07/18/20 21:44 Hydromorphone HCl (Dilaudid) 2 mg Q4H PRN IVP Severe Pain (Pain Scale 7-10) 08/05/20 06:45 08/09/20 10:44 Lansoprazole (Prevacid) 30 mg DAILY GT 07/18/20 09:00 08/09/20 08:59 08/06/20 08:30 Levofloxacin (Levaquin) 750 mg DAILY ORAL 08/03/20 12:00 08/10/20 11:59 08/06/20 08:30 Lorazepam (Ativan 2mg/ml 1ml) 1 mg Q4H PRN IV For Anxiety 08/02/20 13:45 08/09/20 13:44 08/02/20 22:19 Metoclopramide HCl (Reglan) 10 mg Q6H IVP 08/01/20 18:00 08/31/20 17:59 08/07/20 00:36 Midodrine (Pro-Amatine) 10 mg Q8H PRN GT BP below 100 systolic 08/06/20 10:30 11/04/20 10:29 Ondansetron HCl (Zofran) 4 mg Q6H PRN IVP Nausea & Vomiting 08/02/20 10:00 09/01/20 09:59 Polyethylene Glycol (Miralax) 17 gm BEDTIME ORAL 07/26/20 21:00 08/25/20 20:59 08/06/20 20:32 Quetiapine Fumarate (SEROqueL) 75 mg Q8HR GT 08/02/20 14:00 08/30/20 13:59 08/06/20 20:44 Last 24 Hour Vital Signs Date Time Temp Pulse Resp B/P (MAP) Pulse Ox O2 Delivery O2 Flow Rate FiO2 08/07/20 05:00 84 22 115/57 (76) 100 08/07/20 04:30 92 29 121/48 (72) 99 08/07/20 04:00 35 08/07/20 04:00 Mechanical Ventilator Mechanical Ventilator 08/07/20 04:00 84 22 122/56 (78) 100 08/07/20 03:30 84 22 120/50 (73) 100 08/07/20 03:00 90 22 108/52 (70) 100 08/07/20 02:30 97 28 98/81 (87) 100 08/07/20 02:27 93 27 104/52 (69) 100 08/07/20 02:00 98 27 81/53 (62) 100 08/07/20 01:30 97 23 109/48 (68) 100 08/07/20 01:15 100 Cool Aerosol 10.0 40 08/07/20 01:00 95 30 112/61 (78) 100 08/07/20 00:30 101 24 106/55 (72) 100 08/07/20 00:00 101 26 106/51 (69) 100 08/07/20 00:00 Mechanical Ventilator Mechanical Ventilator 08/06/20 23:30 104 26 104/56 (72) 100 08/06/20 23:00 101 25 105/53 (70) 100 08/06/20 22:00 106 27 108/55 (72) 100 08/06/20 21:30 103 35 114/56 (75) 100 08/06/20 21:00 103 26 110/50 (70) 100 08/06/20 20:30 102 28 107/53 (71) 100 08/06/20 20:00 Mechanical Ventilator Mechanical Ventilator 08/06/20 20:00 100 26 104/53 (70) 100 08/06/20 20:00 35 08/06/20 19:30 100 26 97/57 (70) 100 08/06/20 19:14 100 Cool Aerosol 10.0 40 08/06/20 19:00 102 29 109/48 (68) 100 08/06/20 18:00 99 25 104/51 (68) 100 08/06/20 17:00 107 22 111/76 (88) 99 08/06/20 16:40 100 Cool Aerosol 10.0 40 08/06/20 16:00 35 08/06/20 16:00 Mechanical Ventilator Mechanical Ventilator 08/06/20 16:00 99.2 93 28 98/50 (66) 99 08/06/20 16:00 94 08/06/20 15:10 88 30 35 08/06/20 15:00 98 25 108/53 (71) 98 08/06/20 14:00 87 21 104/46 (65) 100 08/06/20 13:00 89 30 147/107 (120) 99 08/06/20 12:30 89 26 130/67 (88) 100 08/06/20 12:00 87 08/06/20 12:00 Mechanical Ventilator Mechanical Ventilator 08/06/20 12:00 88 23 141/67 (91) 100 08/06/20 12:00 35 08/06/20 12:00 98.4 87 30 141/67 (91) 100 08/06/20 11:30 89 20 125/61 (82) 100 08/06/20 11:10 89 28 35 08/06/20 11:00 97 21 129/54 (79) 100 08/06/20 10:00 97 24 126/66 (86) 99 08/06/20 10:00 99 20 126/66 (86) 100 08/06/20 09:00 96 30 123/67 (85) 100 08/06/20 08:00 35 08/06/20 08:00 92 08/06/20 08:00 99.3 88 29 116/47 (70) 100 08/06/20 08:00 Mechanical Ventilator Mechanical Ventilator 08/06/20 07:10 89 35 35 08/06/20 07:00 101 24 121/60 (80) 98 08/06/20 06:30 98 27 150/65 (93) 99 08/06/20 06:00 96 27 147/70 (95) 100 08/06/20 05:30 95 24 143/76 (98) 100 08/06/20 05:12 98 38 35 08/06/20 05:00 95 26 131/66 (87) 98 08/06/20 04:00 107 21 126/67 (86) 97 08/06/20 04:00 Mechanical Ventilator Mechanical Ventilator 08/06/20 04:00 96 08/06/20 04:00 35 08/06/20 03:30 96 23 135/66 (89) 100 08/06/20 03:15 102 37 35 08/06/20 03:00 103 23 122/63 (82) 95 08/06/20 02:30 106 25 139/77 (97) 98 08/06/20 02:00 108 30 100/49 (66) 96 08/06/20 01:20 106 34 35 08/06/20 01:00 98 24 118/69 (85) 100 08/06/20 00:30 93 27 121/82 (95) 100 08/06/20 00:00 95 08/06/20 00:00 Mechanical Ventilator Mechanical Ventilator 08/06/20 00:00 40 08/06/20 00:00 98 29 131/95 (107) 100 08/05/20 23:30 100 25 123/66 (85) 100 08/05/20 23:00 100 21 132/50 (77) 100 08/05/20 22:43 99 36 40 08/05/20 22:30 98 26 143/84 (103) 100 08/05/20 22:00 99 26 123/79 (94) 100 08/05/20 21:30 92 25 124/97 (106) 100 08/05/20 21:24 90 39 40 08/05/20 21:00 94 20 121/68 (85) 100 08/05/20 20:30 89 28 114/77 (89) 100 08/05/20 20:00 93 26 119/62 (81) 99 08/05/20 20:00 90 08/05/20 20:00 40 08/05/20 20:00 Mechanical Ventilator Mechanical Ventilator 08/05/20 19:29 89 40 40 08/05/20 19:00 89 22 122/89 (100) 100 08/05/20 18:00 92 23 109/71 (84) 100 08/05/20 17:15 93 37 40 08/05/20 17:00 95 33 121/53 (75) 100 08/05/20 16:00 Mechanical Ventilator Mechanical Ventilator 08/05/20 16:00 86 08/05/20 16:00 99.0 92 27 119/60 (79) 100 08/05/20 16:00 40 08/05/20 15:00 93 26 109/46 (67) 100 08/05/20 14:44 91 38 40 08/05/20 14:00 85 28 118/48 (71) 100 08/05/20 13:05 89 37 40 08/05/20 13:00 89 29 119/50 (73) 100 08/05/20 12:00 Mechanical Ventilator Mechanical Ventilator 08/05/20 12:00 98.0 85 30 128/60 (82) 100 08/05/20 12:00 89 08/05/20 12:00 40 08/05/20 11:26 98 46 40 08/05/20 11:20 40 08/05/20 11:00 98 26 125/70 (88) 96 08/05/20 10:00 101 26 132/55 (80) 93 08/05/20 09:35 98 32 35 08/05/20 09:00 96 29 125/57 (79) 94 08/05/20 08:00 97.8 85 27 129/65 (86) 93 08/05/20 08:00 79 08/05/20 08:00 Mechanical Ventilator Mechanical Ventilator 08/05/20 08:00 35 08/05/20 07:44 89 27 35 08/05/20 07:15 83 33 40 3/15/21 07:00 40 08/05/20 07:00 83 28 122/94 (103) 99 Intake and Output 08/06/20 08/07/20 19:00 07:00 Intake Total 760 ml 550 ml Output Total 1140 ml 0 ml Balance -380 ml 550 ml Free Water 100 ml Tube Feeding 660 ml 550 ml Output Urine Total 1140 ml Chest Tube Drainage Total 0 ml 0 ml # Bowel Movements 1 Labs Test 08/04/20 07:50 08/05/20 11:00 08/06/20 05:28 08/06/20 08:33 Arterial Blood pH 7.480 (7.350-7.450) 7.517 (7.350-7.450) 7.458 (7.350-7.450) Arterial Blood Partial Pressure CO2 70.4 mmHg (35.0-45.0) 59.5 mmHg (35.0-45.0) 57.1 mmHg (35.0-45.0) Arterial Blood Partial Pressure O2 79.4 mmHg (75.0-100.0) 55.0 mmHg (75.0-100.0) 84.6 mmHg (75.0-100.0) Arterial Blood HCO3 51.3 mmol/L (22.0-26.0) 47.2 mmol/L (22.0-26.0) 39.5 mmol/L (22.0-26.0) Arterial Blood Oxygen Saturation 95.4 % (95-100) 88.2 % (95-100) 95.6 % (95-100) Arterial Blood Base Excess 24.5 (-2-2) 21.5 (-2-2) 13.7 (-2-2) Jeremiah Test Positive Positive Positive White Blood Count 10.9 K/UL (4.8-10.8) Red Blood Count 3.36 M/UL (4.20-5.40) Hemoglobin 9.6 G/DL (12.0-16.0) Hematocrit 31.5 % (37.0-47.0) Mean Corpuscular Volume 94 FL (80-99) Mean Corpuscular Hemoglobin 28.5 PG (27.0-31.0) Mean Corpuscular Hemoglobin Concent 30.4 G/DL (32.0-36.0) Red Cell Distribution Width 18.4 % (11.6-14.8) Platelet Count 266 K/UL (150-450) Mean Platelet Volume 7.5 FL (6.5-10.1) Neutrophils (%) (Auto) 58.5 % (45.0-75.0) Lymphocytes (%) (Auto) 22.0 % (20.0-45.0) Monocytes (%) (Auto) 7.9 % (1.0-10.0) Eosinophils (%) (Auto) 10.8 % (0.0-3.0) Basophils (%) (Auto) 0.8 % (0.0-2.0) Sodium Level 142 MMOL/L (136-145) Potassium Level 3.7 MMOL/L (3.5-5.1) Chloride Level 98 MMOL/L (98-107) Carbon Dioxide Level 40 MMOL/L (21-32) Anion Gap 4 mmol/L (5-15) Blood Urea Nitrogen 25 mg/dL (7-18) Creatinine 1.1 MG/DL (0.55-1.30) Estimat Glomerular Filtration Rate 52.8 mL/min (>60) Glucose Level 121 MG/DL (74-106) Calcium Level 10.9 MG/DL (8.5-10.1) Phosphorus Level 5.2 MG/DL (2.5-4.9) Magnesium Level 1.8 MG/DL (1.8-2.4) Total Bilirubin 0.5 MG/DL (0.2-1.0) Direct Bilirubin 0.1 MG/DL (0.0-0.3) Aspartate Amino Transf (AST/SGOT) 33 U/L (15-37) Alanine Aminotransferase (ALT/SGPT) 21 U/L (12-78) Alkaline Phosphatase 66 U/L (46-116) Total Protein 7.2 G/DL (6.4-8.2) Albumin 2.8 G/DL (3.4-5.0) Test 08/07/20 03:05 White Blood Count 8.1 K/UL (4.8-10.8) Red Blood Count 3.17 M/UL (4.20-5.40) Hemoglobin 9.0 G/DL (12.0-16.0) Hematocrit 29.8 % (37.0-47.0) Mean Corpuscular Volume 94 FL (80-99) Mean Corpuscular Hemoglobin 28.4 PG (27.0-31.0) Mean Corpuscular Hemoglobin Concent 30.2 G/DL (32.0-36.0) Red Cell Distribution Width 18.2 % (11.6-14.8) Platelet Count 213 K/UL (150-450) Mean Platelet Volume 7.5 FL (6.5-10.1) Neutrophils (%) (Auto) 43.1 % (45.0-75.0) Lymphocytes (%) (Auto) 29.9 % (20.0-45.0) Monocytes (%) (Auto) 9.3 % (1.0-10.0) Eosinophils (%) (Auto) 16.8 % (0.0-3.0) Basophils (%) (Auto) 0.9 % (0.0-2.0) Prothrombin Time 13.2 SEC (9.30-11.50) Prothromb Time International Ratio 1.2 (0.9-1.1) Activated Partial Thromboplast Time 34 SEC (23-33) Sodium Level 142 MMOL/L (136-145) Potassium Level 3.2 MMOL/L (3.5-5.1) Chloride Level 100 MMOL/L (98-107) Carbon Dioxide Level 37 MMOL/L (21-32) Anion Gap 5 mmol/L (5-15) Blood Urea Nitrogen 27 mg/dL (7-18) Creatinine 1.2 MG/DL (0.55-1.30) Estimat Glomerular Filtration Rate 47.8 mL/min (>60) Glucose Level 101 MG/DL (74-106) Calcium Level 10.5 MG/DL (8.5-10.1) Total Bilirubin 0.6 MG/DL (0.2-1.0) Aspartate Amino Transf (AST/SGOT) 32 U/L (15-37) Alanine Aminotransferase (ALT/SGPT) 19 U/L (12-78) Alkaline Phosphatase 61 U/L (46-116) Total Protein 6.6 G/DL (6.4-8.2) Albumin 2.5 G/DL (3.4-5.0) Globulin 4.1 g/dL Albumin/Globulin Ratio 0.6 (1.0-2.7) Height (Feet): 5 Height (Inches): 5.00 Weight (Pounds): 223 Objective GeNL: nv HEENT: ngt++ Pulm: vent/trach++ CV: rrr Abd: soft, nt, nd ++gt Ext: no cce Myron Condon MD Aug 07, 2020 06:58
--- NOTE | 2020-08-07 07:08 | NUR ---
RESPIRATORY NOTE: PT received stable on Cool Aerosol @ 10 Lpm / 40% FiO2. Tolerating settings well. No s/s of respiratory distress are noted at this time. Will continue to closely monitor.
--- NOTE | 2020-08-07 07:15 | NUR ---
NURSE NOTES: Received report from RAKEL Ferreira. Patient asleep and responsive to verbal, able to follow commands. Trach Collar with fio2 40%. O2 sat 100% on the monitor. Gtube intact and running with Glucerna 1.2 @ 55ml/hr. Lennon intact and draining with jordyn color urine. Right upper arm 20G IV and Left AC 20G IV intact and clean. Kept dry, clean and comfortable. Call-light placed in easy place.
[2020-08-07] MEDS: Docusate 100mg/10ml Liq GT SCH ×2 (08:16→20:52)
[2020-08-07] MEDS: Levofloxacin 750mg tab ORAL SCH (08:17)
[2020-08-07] MEDS: Enoxaparin 100mg Inj SUBQ SCH ×2 (08:18→21:50)
--- NOTE | 2020-08-07 08:36 | NUR ---
RADIOLOGY DEPT., CHEST X-RAY DONE.-P.DYE
--- NOTE | 2020-08-07 09:21 | General Progress Note ---
Subjective Constitutional: Reports: weakness Allergies: Coded Allergies: No Known Allergies (Unverified , 05/28/20) All Systems: reviewed and negative except above Subjective trach vent chest tube in icu Objective Last 24 Hour Vital Signs Date Time Temp Pulse Resp B/P (MAP) Pulse Ox O2 Delivery O2 Flow Rate FiO2 08/07/20 08:00 T-piece Mechanical Ventilator 08/07/20 08:00 98.9 79 21 140/61 (87) 100 08/07/20 08:00 40 08/07/20 07:08 100 Cool Aerosol 10.0 40 08/07/20 07:00 78 15 140/72 (94) 100 08/07/20 06:00 81 26 98 08/07/20 05:30 81 23 109/50 (69) 100 08/07/20 05:00 84 22 115/57 (76) 100 08/07/20 05:00 84 22 115/57 (76) 100 08/07/20 04:30 92 29 121/48 (72) 99 08/07/20 04:00 35 08/07/20 04:00 Mechanical Ventilator Mechanical Ventilator 08/07/20 04:00 84 08/07/20 04:00 84 22 122/56 (78) 100 08/07/20 03:30 84 22 120/50 (73) 100 08/07/20 03:00 90 22 108/52 (70) 100 08/07/20 02:30 97 28 98/81 (87) 100 08/07/20 02:27 93 27 104/52 (69) 100 08/07/20 02:00 98 27 81/53 (62) 100 08/07/20 01:30 97 23 109/48 (68) 100 08/07/20 01:15 100 Cool Aerosol 10.0 40 08/07/20 01:00 95 30 112/61 (78) 100 08/07/20 00:30 101 24 106/55 (72) 100 08/07/20 00:00 104 08/07/20 00:00 101 26 106/51 (69) 100 08/07/20 00:00 Mechanical Ventilator Mechanical Ventilator 08/06/20 23:30 104 26 104/56 (72) 100 08/06/20 23:00 101 25 105/53 (70) 100 08/06/20 22:00 106 27 108/55 (72) 100 08/06/20 21:30 103 35 114/56 (75) 100 08/06/20 21:00 103 26 110/50 (70) 100 08/06/20 20:30 102 28 107/53 (71) 100 08/06/20 20:00 Mechanical Ventilator Mechanical Ventilator 08/06/20 20:00 100 26 104/53 (70) 100 08/06/20 20:00 35 08/06/20 19:30 100 26 97/57 (70) 100 08/06/20 19:14 100 Cool Aerosol 10.0 40 08/06/20 19:00 102 29 109/48 (68) 100 08/06/20 18:00 99 25 104/51 (68) 100 08/06/20 17:00 107 22 111/76 (88) 99 08/06/20 16:40 100 Cool Aerosol 10.0 40 08/06/20 16:00 35 08/06/20 16:00 Mechanical Ventilator Mechanical Ventilator 08/06/20 16:00 99.2 93 28 98/50 (66) 99 08/06/20 16:00 94 08/06/20 15:10 88 30 35 08/06/20 15:00 98 25 108/53 (71) 98 08/06/20 14:00 87 21 104/46 (65) 100 08/06/20 13:00 89 30 147/107 (120) 99 08/06/20 12:30 89 26 130/67 (88) 100 08/06/20 12:00 87 08/06/20 12:00 Mechanical Ventilator Mechanical Ventilator 08/06/20 12:00 88 23 141/67 (91) 100 08/06/20 12:00 35 08/06/20 12:00 98.4 87 30 141/67 (91) 100 08/06/20 11:30 89 20 125/61 (82) 100 08/06/20 11:10 89 28 35 08/06/20 11:00 97 21 129/54 (79) 100 08/06/20 10:00 97 24 126/66 (86) 99 08/06/20 10:00 99 20 126/66 (86) 100 Intake and Output 08/06/20 08/07/20 19:00 07:00 Intake Total 760 ml 605 ml Output Total 1140 ml 1000 ml Balance -380 ml -395 ml Free Water 100 ml Tube Feeding 660 ml 605 ml Output Urine Total 1140 ml 1000 ml Chest Tube Drainage Total 0 ml 0 ml # Bowel Movements 1 Laboratory Tests 08/07/20 03:05: White Blood Count 8.1, Red Blood Count 3.17L, Hemoglobin 9.0L, Hematocrit 29.8L, Mean Corpuscular Volume 94, Mean Corpuscular Hemoglobin 28.4, Mean Corpuscular Hemoglobin Concent 30.2L, Red Cell Distribution Width 18.2H, Platelet Count 213, Mean Platelet Volume 7.5, Neutrophils (%) (Auto) 43.1L, Lymphocytes (%) (Auto) 29.9, Monocytes (%) (Auto) 9.3, Eosinophils (%) (Auto) 16.8H, Basophils (%) (Auto) 0.9, Prothrombin Time 13.2H, Prothromb Time International Ratio 1.2H, Activated Partial Thromboplast Time 34H, Sodium Level 142, Potassium Level 3.2L, Chloride Level 100, Carbon Dioxide Level 37H, Anion Gap 5, Blood Urea Nitrogen 27H, Creatinine 1.2, Estimat Glomerular Filtration Rate 47.8, Glucose Level 101, Calcium Level 10.5H, Total Bilirubin 0.6, Aspartate Amino Transf (AST/SGOT) 32, Alanine Aminotransferase (ALT/SGPT) 19, Alkaline Phosphatase 61, Total Protein 6.6, Albumin 2.5L, Globulin 4.1, Albumin/Globulin Ratio 0.6L Height (Feet): 5 Height (Inches): 5.00 Weight (Pounds): 223 General Appearance: lethargic EENT: normal ENT inspection Neck: normal alignment Cardiovascular: normal peripheral pulses, normal rate, regular rhythm Respiratory/Chest: chest wall non-tender, lungs clear, normal breath sounds Abdomen: normal bowel sounds, non tender, soft Extremities: normal inspection Edema: no edema noted Arm (L), no edema noted Arm (R), no edema noted Leg (L), no edema noted Leg (R), no edema noted Pedal (L), no edema noted Pedal (R), no edema noted Generalized Neurologic: motor weakness Skin: normal pigmentation, warm/dry Assessment/Plan Problem List: (1) Hypoxia ICD Codes: R09.02 - Hypoxemia SNOMED: 189232924 (2) Respiratory failure ICD Codes: J96.90 - Respiratory failure, unspecified, unspecified whether with hypoxia or hypercapnia SNOMED: 575501092 (3) Respiratory distress ICD Codes: R06.03 - Acute respiratory distress; J12.82 - Pneumonia due to coronavirus disease 2019 SNOMED: 732508998 (4) Pneumonia due to COVID-19 virus ICD Codes: U07.1 - COVID-19; J12.82 - Pneumonia due to coronavirus disease 2019 SNOMED: 183835795009474033 Status: unchanged Assessment/Plan: vent abx id wean chest tube pulm f/u cbc bmp am dc plan Tank Del Cid DO Aug 07, 2020 09:21
--- NOTE | 2020-08-07 09:40 | Endoscopy Procedure Note ---
Endoscopy Procedure Note General Indication for Procedure: screening colon, GERD Procedures Performed: EGD, colonoscopy Operative Findings/Diagnosis: gastritis, hemorrhoids Specimen: yes Pt Tolerated Procedure Well: Yes Estimated Blood Loss: none Anesthesia Anesthesiologist: bakari Anesthesia: MAC Inserted Devices Implant(s) used?: No Quality Quality of Bowel Preparation: Poor Did scope reach the cecum?: No Why scope didn't reach cecum: Bowel preparation poor Was there any complications?: No GI Core Measures 50 yrs or older w/o bx or poly: No 10yrs. F/U recommended: Yes If not recommended, why?: Above average risk 18 years or older w/prev. colo: No Ryan Strong MD Aug 07, 2020 09:40
--- NOTE | 2020-08-07 09:43 | General Progress Note ---
Subjective ROS Limited/Unobtainable: No Allergies: Coded Allergies: No Known Allergies (Unverified , 05/28/20) Subjective vomited again had BM no GT residuals Objective Last 24 Hour Vital Signs Date Time Temp Pulse Resp B/P (MAP) Pulse Ox O2 Delivery O2 Flow Rate FiO2 08/07/20 08:00 T-piece Mechanical Ventilator 08/07/20 08:00 98.9 79 21 140/61 (87) 100 08/07/20 08:00 40 08/07/20 07:08 100 Cool Aerosol 10.0 40 08/07/20 07:00 78 15 140/72 (94) 100 08/07/20 06:00 81 26 98 08/07/20 05:30 81 23 109/50 (69) 100 08/07/20 05:00 84 22 115/57 (76) 100 08/07/20 05:00 84 22 115/57 (76) 100 08/07/20 04:30 92 29 121/48 (72) 99 08/07/20 04:00 35 08/07/20 04:00 Mechanical Ventilator Mechanical Ventilator 08/07/20 04:00 84 08/07/20 04:00 84 22 122/56 (78) 100 08/07/20 03:30 84 22 120/50 (73) 100 08/07/20 03:00 90 22 108/52 (70) 100 08/07/20 02:30 97 28 98/81 (87) 100 08/07/20 02:27 93 27 104/52 (69) 100 08/07/20 02:00 98 27 81/53 (62) 100 08/07/20 01:30 97 23 109/48 (68) 100 08/07/20 01:15 100 Cool Aerosol 10.0 40 08/07/20 01:00 95 30 112/61 (78) 100 08/07/20 00:30 101 24 106/55 (72) 100 08/07/20 00:00 104 08/07/20 00:00 101 26 106/51 (69) 100 08/07/20 00:00 Mechanical Ventilator Mechanical Ventilator 08/06/20 23:30 104 26 104/56 (72) 100 08/06/20 23:00 101 25 105/53 (70) 100 08/06/20 22:00 106 27 108/55 (72) 100 08/06/20 21:30 103 35 114/56 (75) 100 08/06/20 21:00 103 26 110/50 (70) 100 08/06/20 20:30 102 28 107/53 (71) 100 08/06/20 20:00 Mechanical Ventilator Mechanical Ventilator 08/06/20 20:00 100 26 104/53 (70) 100 08/06/20 20:00 35 08/06/20 19:30 100 26 97/57 (70) 100 08/06/20 19:14 100 Cool Aerosol 10.0 40 08/06/20 19:00 102 29 109/48 (68) 100 08/06/20 18:00 99 25 104/51 (68) 100 08/06/20 17:00 107 22 111/76 (88) 99 08/06/20 16:40 100 Cool Aerosol 10.0 40 08/06/20 16:00 35 08/06/20 16:00 Mechanical Ventilator Mechanical Ventilator 08/06/20 16:00 99.2 93 28 98/50 (66) 99 08/06/20 16:00 94 08/06/20 15:10 88 30 35 08/06/20 15:00 98 25 108/53 (71) 98 08/06/20 14:00 87 21 104/46 (65) 100 08/06/20 13:00 89 30 147/107 (120) 99 08/06/20 12:30 89 26 130/67 (88) 100 08/06/20 12:00 87 08/06/20 12:00 Mechanical Ventilator Mechanical Ventilator 08/06/20 12:00 88 23 141/67 (91) 100 08/06/20 12:00 35 08/06/20 12:00 98.4 87 30 141/67 (91) 100 08/06/20 11:30 89 20 125/61 (82) 100 08/06/20 11:10 89 28 35 08/06/20 11:00 97 21 129/54 (79) 100 08/06/20 10:00 97 24 126/66 (86) 99 08/06/20 10:00 99 20 126/66 (86) 100 Intake and Output 08/06/20 08/07/20 19:00 07:00 Intake Total 760 ml 605 ml Output Total 1140 ml 1000 ml Balance -380 ml -395 ml Free Water 100 ml Tube Feeding 660 ml 605 ml Output Urine Total 1140 ml 1000 ml Chest Tube Drainage Total 0 ml 0 ml # Bowel Movements 1 Laboratory Tests 08/07/20 03:05: White Blood Count 8.1, Red Blood Count 3.17L, Hemoglobin 9.0L, Hematocrit 29.8L, Mean Corpuscular Volume 94, Mean Corpuscular Hemoglobin 28.4, Mean Corpuscular Hemoglobin Concent 30.2L, Red Cell Distribution Width 18.2H, Platelet Count 213, Mean Platelet Volume 7.5, Neutrophils (%) (Auto) 43.1L, Lymphocytes (%) (Auto) 29.9, Monocytes (%) (Auto) 9.3, Eosinophils (%) (Auto) 16.8H, Basophils (%) (Auto) 0.9, Prothrombin Time 13.2H, Prothromb Time International Ratio 1.2H, Activated Partial Thromboplast Time 34H, Sodium Level 142, Potassium Level 3.2L, Chloride Level 100, Carbon Dioxide Level 37H, Anion Gap 5, Blood Urea Nitrogen 27H, Creatinine 1.2, Estimat Glomerular Filtration Rate 47.8, Glucose Level 101, Calcium Level 10.5H, Total Bilirubin 0.6, Aspartate Amino Transf (AST/SGOT) 32, Alanine Aminotransferase (ALT/SGPT) 19, Alkaline Phosphatase 61, Total Protein 6.6, Albumin 2.5L, Globulin 4.1, Albumin/Globulin Ratio 0.6L Height (Feet): 5 Height (Inches): 5.00 Weight (Pounds): 223 General Appearance: no apparent distress EENT: normal ENT inspection Neck: supple Cardiovascular: normal rate Respiratory/Chest: decreased breath sounds Abdomen: hypoactive bowel sounds Extremities: non-tender Assessment/Plan Problem List: (1) Morbid obesity ICD Codes: E66.01 - Morbid (severe) obesity due to excess calories SNOMED: 595248578 (2) DEVENDRA (acute kidney injury) ICD Codes: N17.9 - Acute kidney failure, unspecified SNOMED: 9724766, 55703884 (3) Diabetes mellitus out of control ICD Codes: E11.65 - Type 2 diabetes mellitus with hyperglycemia SNOMED: 52894464, 515373142 (4) Pneumonia due to COVID-19 virus ICD Codes: U07.1 - COVID-19; J12.82 - Pneumonia due to coronavirus disease 2019 SNOMED: 955708568800587597 (5) Hypoxia ICD Codes: R09.02 - Hypoxemia SNOMED: 559023793 (6) Respiratory failure ICD Codes: J96.90 - Respiratory failure, unspecified, unspecified whether with hypoxia or hypercapnia SNOMED: 801693479 Status: unchanged Assessment/Plan: s/p PEG GTF colace miralax zofran reglan pending possible chest tube removal will Ryan Dubose MD Aug 07, 2020 09:43
--- NOTE | 2020-08-07 09:45 | NUR ---
NURSE NOTES: Seen by Dr. Devine and assessed patient. Removed chest tube. Will follow up with CXR.
--- NOTE | 2020-08-07 09:49 | Pulmonology Progress Note ---
Subjective ROS Limited/Unobtainable: No Interval Events: Chest tube removed (07/29), Thoravent (07/30-08/07) Constitutional: Reports: fever, other - resolved HEENT: Repors: no symptoms Respiratory: Reports: no symptoms Cardiovascular: Reports: no symptoms Gastrointestinal/Abdominal: Reports: vomiting - resolved Genitourinary: Reports: no symptoms Allergies: Coded Allergies: No Known Allergies (Unverified , 05/28/20) All Systems: reviewed and negative except above Objective Last 24 Hour Vital Signs Date Time Temp Pulse Resp B/P (MAP) Pulse Ox O2 Delivery O2 Flow Rate FiO2 08/07/20 08:00 T-piece Mechanical Ventilator 08/07/20 08:00 98.9 79 21 140/61 (87) 100 08/07/20 08:00 40 08/07/20 07:08 100 Cool Aerosol 10.0 40 08/07/20 07:00 78 15 140/72 (94) 100 08/07/20 06:00 81 26 98 08/07/20 05:30 81 23 109/50 (69) 100 08/07/20 05:00 84 22 115/57 (76) 100 08/07/20 05:00 84 22 115/57 (76) 100 08/07/20 04:30 92 29 121/48 (72) 99 08/07/20 04:00 35 08/07/20 04:00 Mechanical Ventilator Mechanical Ventilator 08/07/20 04:00 84 08/07/20 04:00 84 22 122/56 (78) 100 08/07/20 03:30 84 22 120/50 (73) 100 08/07/20 03:00 90 22 108/52 (70) 100 08/07/20 02:30 97 28 98/81 (87) 100 08/07/20 02:27 93 27 104/52 (69) 100 08/07/20 02:00 98 27 81/53 (62) 100 08/07/20 01:30 97 23 109/48 (68) 100 08/07/20 01:15 100 Cool Aerosol 10.0 40 08/07/20 01:00 95 30 112/61 (78) 100 08/07/20 00:30 101 24 106/55 (72) 100 08/07/20 00:00 104 08/07/20 00:00 101 26 106/51 (69) 100 08/07/20 00:00 Mechanical Ventilator Mechanical Ventilator 08/06/20 23:30 104 26 104/56 (72) 100 08/06/20 23:00 101 25 105/53 (70) 100 08/06/20 22:00 106 27 108/55 (72) 100 08/06/20 21:30 103 35 114/56 (75) 100 08/06/20 21:00 103 26 110/50 (70) 100 08/06/20 20:30 102 28 107/53 (71) 100 08/06/20 20:00 Mechanical Ventilator Mechanical Ventilator 08/06/20 20:00 100 26 104/53 (70) 100 08/06/20 20:00 35 08/06/20 19:30 100 26 97/57 (70) 100 08/06/20 19:14 100 Cool Aerosol 10.0 40 08/06/20 19:00 102 29 109/48 (68) 100 08/06/20 18:00 99 25 104/51 (68) 100 08/06/20 17:00 107 22 111/76 (88) 99 08/06/20 16:40 100 Cool Aerosol 10.0 40 08/06/20 16:00 35 08/06/20 16:00 Mechanical Ventilator Mechanical Ventilator 08/06/20 16:00 99.2 93 28 98/50 (66) 99 08/06/20 16:00 94 08/06/20 15:10 88 30 35 08/06/20 15:00 98 25 108/53 (71) 98 08/06/20 14:00 87 21 104/46 (65) 100 08/06/20 13:00 89 30 147/107 (120) 99 08/06/20 12:30 89 26 130/67 (88) 100 08/06/20 12:00 87 08/06/20 12:00 Mechanical Ventilator Mechanical Ventilator 08/06/20 12:00 88 23 141/67 (91) 100 08/06/20 12:00 35 08/06/20 12:00 98.4 87 30 141/67 (91) 100 08/06/20 11:30 89 20 125/61 (82) 100 08/06/20 11:10 89 28 35 08/06/20 11:00 97 21 129/54 (79) 100 08/06/20 10:00 97 24 126/66 (86) 99 08/06/20 10:00 99 20 126/66 (86) 100 Intake and Output 08/06/20 08/07/20 19:00 07:00 Intake Total 760 ml 605 ml Output Total 1140 ml 1000 ml Balance -380 ml -395 ml Free Water 100 ml Tube Feeding 660 ml 605 ml Output Urine Total 1140 ml 1000 ml Chest Tube Drainage Total 0 ml 0 ml # Bowel Movements 1 General Appearance: no acute distress HEENT: normocephalic, status post trach Respiratory: chest wall non-tender Cardiovascular: normal peripheral pulses Abdomen: normal bowel sounds, other - s/p PEG Microbiology Date/Time Source Procedure Growth Status 08/05/20 16:20 Nasopharynx Coronavirus COVID-19 PCR ([facility]) - Final Complete Laboratory Tests 08/07/20 03:05: White Blood Count 8.1, Red Blood Count 3.17L, Hemoglobin 9.0L, Hematocrit 29.8L, Mean Corpuscular Volume 94, Mean Corpuscular Hemoglobin 28.4, Mean Corpuscular Hemoglobin Concent 30.2L, Red Cell Distribution Width 18.2H, Platelet Count 213, Mean Platelet Volume 7.5, Neutrophils (%) (Auto) 43.1L, Lymphocytes (%) (Auto) 29.9, Monocytes (%) (Auto) 9.3, Eosinophils (%) (Auto) 16.8H, Basophils (%) (Auto) 0.9, Prothrombin Time 13.2H, Prothromb Time International Ratio 1.2H, Activated Partial Thromboplast Time 34H, Sodium Level 142, Potassium Level 3.2L, Chloride Level 100, Carbon Dioxide Level 37H, Anion Gap 5, Blood Urea Nitrogen 27H, Creatinine 1.2, Estimat Glomerular Filtration Rate 47.8, Glucose Level 101, Calcium Level 10.5H, Total Bilirubin 0.6, Aspartate Amino Transf (AST/SGOT) 32, Alanine Aminotransferase (ALT/SGPT) 19, Alkaline Phosphatase 61, Total Protein 6.6, Albumin 2.5L, Globulin 4.1, Albumin/Globulin Ratio 0.6L Current Medications Medications (Trade) Dose Ordered Sig/Zelda Route PRN Reason Start Time Stop Time Status Last Admin Dose Admin Acetaminophen (Tylenol) 650 mg Q4H PRN NG Temp >100.5 07/27/20 03:45 08/26/20 03:44 08/04/20 08:41 Acetaminophen/ Hydrocodone Bitart ([place] 5/325) 1 tab Q4H PRN ORAL Moderate Pain (Pain Scale 4-6) 08/02/20 10:45 08/09/20 10:44 08/03/20 05:24 Calcitonin [place] (Miacalcin) 1 sprays DAILY NASAL 07/22/20 14:00 10/20/20 13:59 08/07/20 08:18 Dextrose (Dextrose 50%) 25 ml Q30M PRN IV Hypoglycemia 06/05/20 10:45 09/03/20 10:44 Dextrose (Dextrose 50%) 50 ml Q30M PRN IV Hypoglycemia 06/05/20 10:45 09/03/20 10:44 Docusate Sodium (Colace) 100 mg EVERY 12 HOURS GT 08/01/20 21:00 08/25/20 17:59 08/07/20 08:16 Enoxaparin Sodium (Lovenox) 100 mg EVERY 12 HOURS SUBQ 08/04/20 09:00 10/15/20 20:59 08/07/20 08:18 Guaifenesin/ Codeine Phosphate (Robitussin with codeine) 5 ml Q6H PRN NG For Cough 07/14/20 14:15 08/13/20 14:14 07/18/20 21:44 Hydromorphone HCl (Dilaudid) 2 mg Q4H PRN IVP Severe Pain (Pain Scale 7-10) 08/05/20 06:45 08/09/20 10:44 Lansoprazole (Prevacid) 30 mg DAILY GT 07/18/20 09:00 08/09/20 08:59 08/07/20 08:16 Levofloxacin (Levaquin) 750 mg DAILY ORAL 08/03/20 12:00 08/10/20 11:59 08/07/20 08:17 Lorazepam (Ativan 2mg/ml 1ml) 1 mg Q4H PRN IV For Anxiety 08/02/20 13:45 08/09/20 13:44 08/02/20 22:19 Metoclopramide HCl (Reglan) 10 mg Q6H IVP 08/01/20 18:00 08/31/20 17:59 08/07/20 06:00 Midodrine (Pro-Amatine) 10 mg Q8H PRN GT BP below 100 systolic 08/06/20 10:30 11/04/20 10:29 Ondansetron HCl (Zofran) 4 mg Q6H PRN IVP Nausea & Vomiting 08/02/20 10:00 09/01/20 09:59 Polyethylene Glycol (Miralax) 17 gm BEDTIME ORAL 07/26/20 21:00 08/25/20 20:59 08/06/20 20:32 Quetiapine Fumarate (SEROqueL) 75 mg Q8HR GT 08/02/20 14:00 08/30/20 13:59 08/07/20 06:00 Assessment/Plan Assessment/Plan 1. COVID-19 pneumonia - Intubated 05/28/20 -s/p solumedrol, Rocephin - Continue PEEP 6 ->7 ->5 - Peak airway pressures better - FiO2 100% -> 90 ->80->60 ->40 ->80 ->100 ->70 ->60 -> 50 ->45 ->40 ->50 ->40-> 80 -> 70->50->45->35->40%; PEEP 7 ->5 - s/p PEG - Trach collar (08/06) - Thoravent removed (08/07) -> repeat CXR in 4-6 hrs 2. Hyponatremia -Per primary MD 3. Elevated inflammatory markers - has high D dimer; On Lovenox -> Lovenox held given anemia 4. DVT of the right calf - once stable, consider IVC filter per heme vs oral DOAC - was on Lovenox but held given anemia 5. Decreased PEEP S/p trach Reported cuff leak per RN/RT Changed 07/22/20 however still has cuff leak 6. Leukocytosis; now WBC wnl - ID following - BCx Serratia Marcescens - UCx neg - Sp Cx pseudomonas 7. Pulmonary edema - s/p Lasix - now on Diamox Now off Levophed Now off IV sedation; on Seroquel TID, added [place] and Dilaudid prn s/p PEG Required R CT due to PTX 07/22/20 - CT removed (07/29) ->however, f/u CXR shows PTX with tracheal deviation. CT reinserted (07/30) Dc planning The care of this patient was discussed with my supervising physician Time spent for this encounter was approximately 31 minutes Vamshi Garcia Aug 07, 2020 09:49
--- NOTE | 2020-08-07 10:14 | Infectious Diseases Prog Note ---
Assessment/Plan Assessment/Plan antibiotics : levoquin A 1. covid 19 pneumonia s/p remdesivir s/p solumedrol 2. respiratory failure s/p tracheostomy 3. pseudomonas pneumonia 4. leucocytosis resolved 5. serratia sepsis s/p PICC line removal 6. pneumothorax s/p CT placement and removal P 1. continue levoquin 5 more days 2. will follow up cultures Subjective ROS Limited/Unobtainable: Yes Allergies: Coded Allergies: No Known Allergies (Unverified , 05/28/20) Objective Last 24 Hour Vital Signs Date Time Temp Pulse Resp B/P (MAP) Pulse Ox O2 Delivery O2 Flow Rate FiO2 08/07/20 08:00 T-piece Mechanical Ventilator 08/07/20 08:00 98.9 79 21 140/61 (87) 100 08/07/20 08:00 40 08/07/20 07:08 100 Cool Aerosol 10.0 40 08/07/20 07:00 78 15 140/72 (94) 100 08/07/20 06:00 81 26 98 08/07/20 05:30 81 23 109/50 (69) 100 08/07/20 05:00 84 22 115/57 (76) 100 08/07/20 05:00 84 22 115/57 (76) 100 08/07/20 04:30 92 29 121/48 (72) 99 08/07/20 04:00 35 08/07/20 04:00 Mechanical Ventilator Mechanical Ventilator 08/07/20 04:00 84 08/07/20 04:00 84 22 122/56 (78) 100 08/07/20 03:30 84 22 120/50 (73) 100 08/07/20 03:00 90 22 108/52 (70) 100 08/07/20 02:30 97 28 98/81 (87) 100 08/07/20 02:27 93 27 104/52 (69) 100 08/07/20 02:00 98 27 81/53 (62) 100 08/07/20 01:30 97 23 109/48 (68) 100 08/07/20 01:15 100 Cool Aerosol 10.0 40 08/07/20 01:00 95 30 112/61 (78) 100 08/07/20 00:30 101 24 106/55 (72) 100 08/07/20 00:00 104 08/07/20 00:00 101 26 106/51 (69) 100 08/07/20 00:00 Mechanical Ventilator Mechanical Ventilator 08/06/20 23:30 104 26 104/56 (72) 100 08/06/20 23:00 101 25 105/53 (70) 100 08/06/20 22:00 106 27 108/55 (72) 100 08/06/20 21:30 103 35 114/56 (75) 100 08/06/20 21:00 103 26 110/50 (70) 100 08/06/20 20:30 102 28 107/53 (71) 100 08/06/20 20:00 Mechanical Ventilator Mechanical Ventilator 08/06/20 20:00 100 26 104/53 (70) 100 08/06/20 20:00 35 08/06/20 19:30 100 26 97/57 (70) 100 08/06/20 19:14 100 Cool Aerosol 10.0 40 08/06/20 19:00 102 29 109/48 (68) 100 08/06/20 18:00 99 25 104/51 (68) 100 08/06/20 17:00 107 22 111/76 (88) 99 08/06/20 16:40 100 Cool Aerosol 10.0 40 08/06/20 16:00 35 08/06/20 16:00 Mechanical Ventilator Mechanical Ventilator 08/06/20 16:00 99.2 93 28 98/50 (66) 99 08/06/20 16:00 94 08/06/20 15:10 88 30 35 08/06/20 15:00 98 25 108/53 (71) 98 08/06/20 14:00 87 21 104/46 (65) 100 08/06/20 13:00 89 30 147/107 (120) 99 08/06/20 12:30 89 26 130/67 (88) 100 08/06/20 12:00 87 08/06/20 12:00 Mechanical Ventilator Mechanical Ventilator 08/06/20 12:00 88 23 141/67 (91) 100 08/06/20 12:00 35 08/06/20 12:00 98.4 87 30 141/67 (91) 100 08/06/20 11:30 89 20 125/61 (82) 100 08/06/20 11:10 89 28 35 08/06/20 11:00 97 21 129/54 (79) 100 Height (Feet): 5 Height (Inches): 5.00 Weight (Pounds): 223 HEENT: status post trach Microbiology Date/Time Source Procedure Growth Status 08/05/20 16:20 Nasopharynx Coronavirus COVID-19 PCR ([facility]) - Final Complete Laboratory Tests Test 08/07/20 03:05 White Blood Count 8.1 K/UL (4.8-10.8) Red Blood Count 3.17 M/UL (4.20-5.40) L Hemoglobin 9.0 G/DL (12.0-16.0) L Hematocrit 29.8 % (37.0-47.0) L Mean Corpuscular Volume 94 FL (80-99) Mean Corpuscular Hemoglobin 28.4 PG (27.0-31.0) Mean Corpuscular Hemoglobin Concent 30.2 G/DL (32.0-36.0) L Red Cell Distribution Width 18.2 % (11.6-14.8) H Platelet Count 213 K/UL (150-450) Mean Platelet Volume 7.5 FL (6.5-10.1) Neutrophils (%) (Auto) 43.1 % (45.0-75.0) L Lymphocytes (%) (Auto) 29.9 % (20.0-45.0) Monocytes (%) (Auto) 9.3 % (1.0-10.0) Eosinophils (%) (Auto) 16.8 % (0.0-3.0) H Basophils (%) (Auto) 0.9 % (0.0-2.0) Prothrombin Time 13.2 SEC (9.30-11.50) H Prothromb Time International Ratio 1.2 (0.9-1.1) H Activated Partial Thromboplast Time 34 SEC (23-33) H Sodium Level 142 MMOL/L (136-145) Potassium Level 3.2 MMOL/L (3.5-5.1) L Chloride Level 100 MMOL/L (98-107) Carbon Dioxide Level 37 MMOL/L (21-32) H Anion Gap 5 mmol/L (5-15) Blood Urea Nitrogen 27 mg/dL (7-18) H Creatinine 1.2 MG/DL (0.55-1.30) Estimat Glomerular Filtration Rate 47.8 mL/min (>60) Glucose Level 101 MG/DL (74-106) Calcium Level 10.5 MG/DL (8.5-10.1) H Total Bilirubin 0.6 MG/DL (0.2-1.0) Aspartate Amino Transf (AST/SGOT) 32 U/L (15-37) Alanine Aminotransferase (ALT/SGPT) 19 U/L (12-78) Alkaline Phosphatase 61 U/L (46-116) Total Protein 6.6 G/DL (6.4-8.2) Albumin 2.5 G/DL (3.4-5.0) L Globulin 4.1 g/dL Albumin/Globulin Ratio 0.6 (1.0-2.7) L Current Medications Medications (Trade) Dose Ordered Sig/Zelda Route PRN Reason Start Time Stop Time Status Last Admin Dose Admin Acetaminophen (Tylenol) 650 mg Q4H PRN NG Temp >100.5 07/27/20 03:45 08/26/20 03:44 08/04/20 08:41 Acetaminophen/ Hydrocodone Bitart ([place] 5/325) 1 tab Q4H PRN ORAL Moderate Pain (Pain Scale 4-6) 08/02/20 10:45 08/09/20 10:44 08/03/20 05:24 Calcitonin [place] (Miacalcin) 1 sprays DAILY NASAL 07/22/20 14:00 10/20/20 13:59 08/07/20 08:18 Dextrose (Dextrose 50%) 25 ml Q30M PRN IV Hypoglycemia 06/05/20 10:45 09/03/20 10:44 Dextrose (Dextrose 50%) 50 ml Q30M PRN IV Hypoglycemia 06/05/20 10:45 09/03/20 10:44 Docusate Sodium (Colace) 100 mg EVERY 12 HOURS GT 08/01/20 21:00 08/25/20 17:59 08/07/20 08:16 Enoxaparin Sodium (Lovenox) 100 mg EVERY 12 HOURS SUBQ 08/04/20 09:00 10/15/20 20:59 08/07/20 08:18 Guaifenesin/ Codeine Phosphate (Robitussin with codeine) 5 ml Q6H PRN NG For Cough 07/14/20 14:15 08/13/20 14:14 07/18/20 21:44 Hydromorphone HCl (Dilaudid) 2 mg Q4H PRN IVP Severe Pain (Pain Scale 7-10) 08/05/20 06:45 08/09/20 10:44 Lansoprazole (Prevacid) 30 mg DAILY GT 07/18/20 09:00 08/09/20 08:59 08/07/20 08:16 Levofloxacin (Levaquin) 750 mg DAILY ORAL 08/03/20 12:00 08/10/20 11:59 08/07/20 08:17 Lorazepam (Ativan 2mg/ml 1ml) 1 mg Q4H PRN IV For Anxiety 08/02/20 13:45 08/09/20 13:44 08/02/20 22:19 Metoclopramide HCl (Reglan) 10 mg Q6H IVP 08/01/20 18:00 08/31/20 17:59 08/07/20 06:00 Midodrine (Pro-Amatine) 10 mg Q8H PRN GT BP below 100 systolic 08/06/20 10:30 11/04/20 10:29 Ondansetron HCl (Zofran) 4 mg Q6H PRN IVP Nausea & Vomiting 08/02/20 10:00 09/01/20 09:59 Polyethylene Glycol (Miralax) 17 gm BEDTIME ORAL 07/26/20 21:00 08/25/20 20:59 08/06/20 20:32 Potassium Chloride 100 ml @ 100 mls/hr Q1H IVPB 08/07/20 10:00 08/07/20 11:59 08/07/20 10:11 Quetiapine Fumarate (SEROqueL) 75 mg Q8HR GT 08/02/20 14:00 08/30/20 13:59 08/07/20 06:00 Fili Mcelroy MD Aug 07, 2020 10:14
--- NOTE | 2020-08-07 10:15 | NUR ---
NURSE NOTES: Seen by Dr. Mcelroy and assessed patient. Discontinue airborne isolation.
--- NOTE | 2020-08-07 10:17 | NUR ---
NURSE NOTES: Seen by Dr. Tyler and assessed patient.
--- NOTE | 2020-08-07 11:37 | Nephrology Progress Note ---
Assessment/Plan Problem List: (1) DEVENDRA (acute kidney injury) (2) Morbid obesity (3) Diabetes mellitus out of control (4) Pneumonia due to COVID-19 virus (5) Respiratory failure Assessment Acute renal failure Obstructive uropathy, clogged [place] Respiratory failure COVID-19 pneumonia Morbid obesity Plan August 07: Labs reviewed. Patient's chest tube is out. Due for repeat chest x- ray. Stable from renal standpoint of view. Upon discharge to have her electrolytes and serum calcium monitored as an outpatient. August 06: Labs reviewed. Serum calcium creeping up. 1 more dose of pamidronate 60 mg ordered. Continues on nasal calcitonin. Patient full code. Continue per other consultants. August 05: Status unchanged. No new labs for today.. Patient full code. Continue per consultants. Stable from renal standpoint of view. August 04: Status unchanged. Labs reviewed. Low magnesium addressed. Patient full code. Continue per consultants. August 03: Status quo. Labs reviewed. Renal parameters stable. Patient full code. Continue per pulmonary. August 02: Continues to have chest tube. Full code. Trach and vent. PEG. Renal parameters stable. August 01: Status quo. Leukocytosis resolved. Renal parameters stable. Continues to be vented through trach. Has PEG. Continue per consultants. P atient is full code. July 31: Chest tube was right reinserted on the right side. Patient remains trached on vent. Leukocytosis worsened . Renal parameters unchanged. Continue per current treatment plan. July 30: Status quo. Labs reviewed. Medication list reviewed. Stable from renal standpoint of view. Patient is full code, trached and vent, also has PEG. July 29: Status quo. Discussed with RN. Labs and medication list reviewed. Stable from renal standpoint of view. July 28: Full code. Labs reviewed. Abnormal electrolytes addressed. Medication list reviewed. Patient has trach and PEG and on ventilator. Continue per consultants. July 27: Full code. In ICU. Trach to vent. Labs reviewed. Renal parameters and electrolytes stable. July 26: Remains in ICU. Remains full code. Trach to vent. Labs reviewed. Abnormal electrolytes addressed. Continue per consultants. July 25: Seen in ICU. Received PEG yesterday. Has trach connected to vent. Full code. Labs reviewed. Albumin bolus given. IV started on table feeding via GT tube initiated. July 24: Patient seen in ICU. Status quo. Has trach. Being ventilated. Has right chest tube. Labs reviewed. Continue per consultants. Low magnesium and low phosphorus replaced. July 23: Patient seen in ICU. Discussed with RN. Yesterday the patient developed tension pneumothorax. Patient has a chest tube today. Labs reviewed. Renal parameters stable. Medication list reviewed. July 22: Status quo. Labs reviewed. Serum calcium elevated. Vitamin D discontinued. Pamidronate 60 mg IV given. Continue to monitor calcium and phosphorus. Patient due for PEG today. July 21: Status quo. Awake responsive. Labs reviewed. Medication list reviewed. Stable from renal standpoint of view. Due for PEG tomorrow. Continue her current management. July 20: Status quo. PEG procedure deferred to July 22. Patient remains full code. Abnormal electrolytes addressed. FiO2 50% unchanged. Continue per consultants. July 19: Status quo. Due for PEG insertion today. Remains full code. Trach and vent. Low magnesium addressed. Continue per consultants. FiO2 50%. July 18: Status quo. Labs reviewed. Low potassium addressed. Continue per consultants. Remains full code. July 17: Remains full code. Trach to vent. FiO2 40%. Labs reviewed. Low potassium addressed. Continue per consultants. July 16: Status quo. FiO2 45%. Discussed with RN. Continue to taper her mind altering medications and sedatives. Stable from renal standpoint of view. Abnormal electrolytes addressed. July 15: Full code. FiO2 50%. Intubated on ventilator. No labs drawn today. Continue per consultants. July 14: Status quo. FiO2 50%. Labs reviewed. Renal parameters stable. Continue per current treatment plan and consultants. Medication list reviewed. July 13: FiO2 60% unchanged. Labs reviewed. Renal parameters stable. Medication list reviewed. Continue per consultants. July 12: Full code. Labs reviewed. Normal electrolytes addressed. C ontinue per pulmonary. Medication list reviewed. July 11: Remains full code. On ventilator. FiO2 down to 65%. Renal para meters stable. Low magnesium addressed. Continue her current management. July 10: Full code. On ventilator. FiO2 70%. Hemoglobin mid sevens. Renal parameters stable. Continue per consultants. July 09: Labs reviewed. Renal parameters stable. FiO2 80% unchanged. Continue per pulmonary. July 08: Labs reviewed. Renal parameters and electrolytes stable. ABG suggestive of high PCO2. At this time patient is on FiO2 of 80%. Continue per pulmonary. Continue to monitor renal parameters. July 07: No CHEM panel drawn today. More potassium given. Continue to monitor renal parameters. Continue per consultants. Discussed with RAKEL Veras. July 06: Low potassium addressed. Albumin bolus for low BP given. Patient remains full code. Continue to monitor electrolytes and renal parameters. Continue per consultants. Hemoglobin low today, transfusion per contract lead. July 05: Trach to vent. FiO2 80%. Renal parameters stable. PCO2 remains high at 44. Continue to monitor renal parameters. July 04: Patient now trach. Full code. Labs reviewed. Renal parameters stable. Low magnesium addressed. July 03: Intubated. Full code. Labs reviewed. Abnormal electrolytes addressed. Continue per consultants. Overall status unchanged. July 02: Remains intubated. Remains full code. Remains on FiO2 of 70%. Labs reviewed. Abnormal electrolytes addressed. Continue per pulmonary. July 01: Remains on 70% FiO2. Full code. Intubated on ventilator. Retaining CO2. Discussed with RN. Will do ABG today. Albumin bolus given. 1 dose of Diamox given. June 30: Status quo. Labs reviewed. Abnormal electrolytes addressed. Remains full code. Remains on ventilator. Magnesium sulfate 4 gram IVPB given. June 29: Full code. Intubated on ventilator. Labs reviewed. Stable from renal standpoint of view. Continue per consultants. June 28: Remains full code. Remains intubated on ventilator. Labs reviewed. Vitamin D supplement ordered. Continue to monitor renal parameters. Continue per consultants. June 27: Remains full code. Intubated on ventilator. Labs reviewed. Abnormal electrolyte addressed. Continue to monitor renal parameters and electrolytes. Continue per consultants. June 26: Labs reviewed. Remains full code. Remains intubated. Back on NGT feeding. Continue to monitor renal parameters. June 25: Labs reviewed. Renal parameters stable. Remains full code. Due to positional status patient could not be fed via NG tube. Starting TPN? Is being entertained. Continue per consultants. June 24: Labs reviewed. Renal parameters stable. Remains full code. Remains intubated on ventilator. Continue per consultants. June 23: Labs reviewed. Renal parameters stable. Discussed with RN. Abnormal electrolyte addressed. Remains full code. Remains on ventilator. Continue per consultants. June 22: Labs reviewed. Low potassium addressed. Discussed with RAKLE Moran. Patient full code. Remains on ventilator. Continue to monitor renal parameters. June 21. Labs reviewed. Abnormal electrolyte addressed. Full code. Remains on ventilator. Medication list reviewed. Continue per pulmonary management. DC IV fluid, resume Lasix daily, check chest x-ray. June 20: Labs reviewed. Abnormal electrolytes. Patient remains full code. Continue per consultants. Noted and addressed June 19: Labs reviewed. Abnormal electrolytes noted and addressed. Remains intubated on ventilator. Remains full code. June 18: Labs reviewed. Remains intubated on ventilator. Full code. Abnormal electrolyte addressed. Continue as is. June 17: Labs reviewed. Abnormal electrolytes addressed. Patient remains full code and intubated on ventilator. Continue per consultants. Renal parameters are within normal limits. June 16: Labs reviewed. Potassium chloride replaced. Remains full code. Remains intubated on ventilator. Continue per consultants. Continue to monitor renal parameters. June 15: Labs reviewed. Serum creatinine 1. Stable from renal standpoint to view. Continue per consultants. June 14: Labs reviewed. Full code. Serum creatinine of 3.5 down to 1.4. Low potassium addressed. Continue per current treatment plan. Continue to monitor renal parameters. Midodrine started. Albumin bolus given. Previously: DC Lasix drip Increase Protonix dose Monitor renal parameters, electrolytes Per orders Subjective ROS Limited/Unobtainable: Yes Objective Objective Last 24 Hour Vital Signs Date Time Temp Pulse Resp B/P (MAP) Pulse Ox O2 Delivery O2 Flow Rate FiO2 08/07/20 11:00 80 16 126/68 (87) 100 08/07/20 10:00 77 18 138/72 (94) 99 08/07/20 09:00 73 16 128/62 (84) 100 08/07/20 08:00 T-piece Mechanical Ventilator 08/07/20 08:00 98.9 79 21 140/61 (87) 100 08/07/20 08:00 40 08/07/20 07:08 100 Cool Aerosol 10.0 40 08/07/20 07:00 78 15 140/72 (94) 100 08/07/20 06:00 81 26 98 08/07/20 05:30 81 23 109/50 (69) 100 08/07/20 05:00 84 22 115/57 (76) 100 08/07/20 05:00 84 22 115/57 (76) 100 08/07/20 04:30 92 29 121/48 (72) 99 08/07/20 04:00 35 08/07/20 04:00 Mechanical Ventilator Mechanical Ventilator 08/07/20 04:00 84 08/07/20 04:00 84 22 122/56 (78) 100 08/07/20 03:30 84 22 120/50 (73) 100 08/07/20 03:00 90 22 108/52 (70) 100 08/07/20 02:30 97 28 98/81 (87) 100 08/07/20 02:27 93 27 104/52 (69) 100 08/07/20 02:00 98 27 81/53 (62) 100 08/07/20 01:30 97 23 109/48 (68) 100 08/07/20 01:15 100 Cool Aerosol 10.0 40 08/07/20 01:00 95 30 112/61 (78) 100 08/07/20 00:30 101 24 106/55 (72) 100 08/07/20 00:00 104 08/07/20 00:00 101 26 106/51 (69) 100 08/07/20 00:00 Mechanical Ventilator Mechanical Ventilator 08/06/20 23:30 104 26 104/56 (72) 100 08/06/20 23:00 101 25 105/53 (70) 100 08/06/20 22:00 106 27 108/55 (72) 100 08/06/20 21:30 103 35 114/56 (75) 100 08/06/20 21:00 103 26 110/50 (70) 100 08/06/20 20:30 102 28 107/53 (71) 100 08/06/20 20:00 Mechanical Ventilator Mechanical Ventilator 08/06/20 20:00 100 26 104/53 (70) 100 08/06/20 20:00 35 08/06/20 19:30 100 26 97/57 (70) 100 08/06/20 19:14 100 Cool Aerosol 10.0 40 08/06/20 19:00 102 29 109/48 (68) 100 08/06/20 18:00 99 25 104/51 (68) 100 08/06/20 17:00 107 22 111/76 (88) 99 08/06/20 16:40 100 Cool Aerosol 10.0 40 08/06/20 16:00 35 08/06/20 16:00 Mechanical Ventilator Mechanical Ventilator 08/06/20 16:00 99.2 93 28 98/50 (66) 99 08/06/20 16:00 94 08/06/20 15:10 88 30 35 08/06/20 15:00 98 25 108/53 (71) 98 08/06/20 14:00 87 21 104/46 (65) 100 08/06/20 13:00 89 30 147/107 (120) 99 08/06/20 12:30 89 26 130/67 (88) 100 08/06/20 12:00 87 08/06/20 12:00 Mechanical Ventilator Mechanical Ventilator 08/06/20 12:00 88 23 141/67 (91) 100 08/06/20 12:00 35 08/06/20 12:00 98.4 87 30 141/67 (91) 100 Intake and Output 08/06/20 08/07/20 19:00 07:00 Intake Total 760 ml 660 ml Output Total 1140 ml 1060 ml Balance -380 ml -400 ml Free Water 100 ml Tube Feeding 660 ml 660 ml Output Urine Total 1140 ml 1060 ml Chest Tube Drainage Total 0 ml 0 ml # Bowel Movements 1 Current Medications Medications (Trade) Dose Ordered Sig/Zelda Route PRN Reason Start Time Stop Time Status Last Admin Dose Admin Acetaminophen (Tylenol) 650 mg Q4H PRN NG Temp >100.5 07/27/20 03:45 08/26/20 03:44 08/04/20 08:41 Acetaminophen/ Hydrocodone Bitart ([place] 5/325) 1 tab Q4H PRN ORAL Moderate Pain (Pain Scale 4-6) 08/02/20 10:45 08/09/20 10:44 08/03/20 05:24 Calcitonin [place] (Miacalcin) 1 sprays DAILY NASAL 07/22/20 14:00 10/20/20 13:59 08/07/20 08:18 Dextrose (Dextrose 50%) 25 ml Q30M PRN IV Hypoglycemia 06/05/20 10:45 09/03/20 10:44 Dextrose (Dextrose 50%) 50 ml Q30M PRN IV Hypoglycemia 06/05/20 10:45 09/03/20 10:44 Docusate Sodium (Colace) 100 mg EVERY 12 HOURS GT 08/01/20 21:00 08/25/20 17:59 08/07/20 08:16 Enoxaparin Sodium (Lovenox) 100 mg EVERY 12 HOURS SUBQ 08/04/20 09:00 10/15/20 20:59 08/07/20 08:18 Guaifenesin/ Codeine Phosphate (Robitussin with codeine) 5 ml Q6H PRN NG For Cough 07/14/20 14:15 08/13/20 14:14 07/18/20 21:44 Hydromorphone HCl (Dilaudid) 2 mg Q4H PRN IVP Severe Pain (Pain Scale 7-10) 08/05/20 06:45 08/09/20 10:44 Lansoprazole (Prevacid) 30 mg DAILY GT 07/18/20 09:00 08/09/20 08:59 08/07/20 08:16 Levofloxacin (Levaquin) 750 mg DAILY ORAL 08/03/20 12:00 08/10/20 11:59 08/07/20 08:17 Lorazepam (Ativan 2mg/ml 1ml) 1 mg Q4H PRN IV For Anxiety 08/02/20 13:45 08/09/20 13:44 08/02/20 22:19 Metoclopramide HCl (Reglan) 10 mg Q6H IVP 08/01/20 18:00 08/31/20 17:59 08/07/20 11:14 Midodrine (Pro-Amatine) 10 mg Q8H PRN GT BP below 100 systolic 08/06/20 10:30 11/04/20 10:29 Ondansetron HCl (Zofran) 4 mg Q6H PRN IVP Nausea & Vomiting 08/02/20 10:00 09/01/20 09:59 Polyethylene Glycol (Miralax) 17 gm BEDTIME ORAL 07/26/20 21:00 08/25/20 20:59 08/06/20 20:32 Potassium Chloride 100 ml @ 100 mls/hr Q1H IVPB 08/07/20 10:00 08/07/20 11:59 08/07/20 11:14 Quetiapine Fumarate (SEROqueL) 75 mg Q8HR GT 08/02/20 14:00 08/30/20 13:59 08/07/20 06:00 Laboratory Tests 08/07/20 03:05: White Blood Count 8.1, Red Blood Count 3.17L, Hemoglobin 9.0L, Hematocrit 29.8L, Mean Corpuscular Volume 94, Mean Corpuscular Hemoglobin 28.4, Mean Corpuscular Hemoglobin Concent 30.2L, Red Cell Distribution Width 18.2H, Platelet Count 213, Mean Platelet Volume 7.5, Neutrophils (%) (Auto) 43.1L, Lymphocytes (%) (Auto) 29.9, Monocytes (%) (Auto) 9.3, Eosinophils (%) (Auto) 16.8H, Basophils (%) (Auto) 0.9, Prothrombin Time 13.2H, Prothromb Time International Ratio 1.2H, Activated Partial Thromboplast Time 34H, Sodium Level 142, Potassium Level 3.2L, Chloride Level 100, Carbon Dioxide Level 37H, Anion Gap 5, Blood Urea Nitrogen 27H, Creatinine 1.2, Estimat Glomerular Filtration Rate 47.8, Glucose Level 101, Calcium Level 10.5H, Total Bilirubin 0.6, Aspartate Amino Transf (AST/SGOT) 32, Alanine Aminotransferase (ALT/SGPT) 19, Alkaline Phosphatase 61, Total Protein 6.6, Albumin 2.5L, Globulin 4.1, Albumin/Globulin Ratio 0.6L Height (Feet): 5 Height (Inches): 5.00 Weight (Pounds): 223 General Appearance: no apparent distress EENT: other - Trach to vent Cardiovascular: normal rate Respiratory/Chest: decreased breath sounds Abdomen: distended Rigo Tyler MD Aug 07, 2020 11:37
--- NOTE | 2020-08-07 12:22 | NUR ---
NURSE NOTES: Repositioned patient. Oral care given.
--- NOTE | 2020-08-07 14:33 | Cardiac Electrophysiology PN ---
Assessment/Plan Assessment/Plan 1. Respiratory failure due to COVID-19 pneumonia. Trach exchanged 07/22/[address] Devine Echo EF 60% On tracheostomy on T Piece off the vent on 40 % Fio2. 2. S/P Code x2 with hypotension and sammy arrest on 07/22/20 likely due to Pneumothorax. HR stable 3. Right Pneumothorax, S/P chest tube placement. Removed 07/29/20 Thoravent placed 07/30/20 and removed today 08/07/20 4. Hypotension, on midodrine 10 mg 3 times daily and off pressors 5. Dysphagia. S/P PEG 07/24/20 6. Right lower extremity DVT. Follow up by Hematology. 7. Severe anemia, S/P PRBC 8. Low Mg, replaced DW RN COvid test pending Subjective Subjective Coded twice for hypotension and bradycardia while on the Vent about 20 minutes after tracheostomy was changed 07/22/20 Found to have Right Pneumothorax and underwent Right chest tube placement by Dr. Devine S/P PRBC. S/P PEG 07/24/20. Chest tube removed 07/29/20 Thora vent placed by Dr. Devine on . Thoravent removed today 08/07/20 In ICU off the Vent on T Piece 40 % Fio2 In SR. Off pressors Covid test negative and now off isolation Objective Last 24 Hour Vital Signs Date Time Temp Pulse Resp B/P (MAP) Pulse Ox O2 Delivery O2 Flow Rate FiO2 08/07/20 12:00 80 08/07/20 12:00 40 08/07/20 12:00 T-piece T-piece 08/07/20 11:00 80 16 126/68 (87) 100 08/07/20 10:00 77 18 138/72 (94) 99 08/07/20 09:00 73 16 128/62 (84) 100 08/07/20 08:00 T-piece T-piece 08/07/20 08:00 98.9 79 21 140/61 (87) 100 08/07/20 08:00 40 08/07/20 08:00 79 08/07/20 07:08 100 Cool Aerosol 10.0 40 08/07/20 07:00 78 15 140/72 (94) 100 08/07/20 06:00 81 26 98 08/07/20 05:30 81 23 109/50 (69) 100 08/07/20 05:00 84 22 115/57 (76) 100 08/07/20 05:00 84 22 115/57 (76) 100 08/07/20 04:30 92 29 121/48 (72) 99 08/07/20 04:00 35 08/07/20 04:00 Mechanical Ventilator Mechanical Ventilator 08/07/20 04:00 84 08/07/20 04:00 84 22 122/56 (78) 100 08/07/20 03:30 84 22 120/50 (73) 100 08/07/20 03:00 90 22 108/52 (70) 100 08/07/20 02:30 97 28 98/81 (87) 100 08/07/20 02:27 93 27 104/52 (69) 100 08/07/20 02:00 98 27 81/53 (62) 100 08/07/20 01:30 97 23 109/48 (68) 100 08/07/20 01:15 100 Cool Aerosol 10.0 40 08/07/20 01:00 95 30 112/61 (78) 100 08/07/20 00:30 101 24 106/55 (72) 100 08/07/20 00:00 104 08/07/20 00:00 101 26 106/51 (69) 100 08/07/20 00:00 Mechanical Ventilator Mechanical Ventilator 08/06/20 23:30 104 26 104/56 (72) 100 08/06/20 23:00 101 25 105/53 (70) 100 08/06/20 22:00 106 27 108/55 (72) 100 08/06/20 21:30 103 35 114/56 (75) 100 08/06/20 21:00 103 26 110/50 (70) 100 08/06/20 20:30 102 28 107/53 (71) 100 08/06/20 20:00 Mechanical Ventilator Mechanical Ventilator 08/06/20 20:00 100 26 104/53 (70) 100 08/06/20 20:00 35 08/06/20 19:30 100 26 97/57 (70) 100 08/06/20 19:14 100 Cool Aerosol 10.0 40 08/06/20 19:00 102 29 109/48 (68) 100 08/06/20 18:00 99 25 104/51 (68) 100 08/06/20 17:00 107 22 111/76 (88) 99 08/06/20 16:40 100 Cool Aerosol 10.0 40 08/06/20 16:00 35 08/06/20 16:00 Mechanical Ventilator Mechanical Ventilator 08/06/20 16:00 99.2 93 28 98/50 (66) 99 08/06/20 16:00 94 08/06/20 15:10 88 30 35 08/06/20 15:00 98 25 108/53 (71) 98 Intake and Output 08/06/20 08/07/20 19:00 07:00 Intake Total 760 ml 660 ml Output Total 1140 ml 1060 ml Balance -380 ml -400 ml Free Water 100 ml Tube Feeding 660 ml 660 ml Output Urine Total 1140 ml 1060 ml Chest Tube Drainage Total 0 ml 0 ml # Bowel Movements 1 Laboratory Tests Test 08/07/20 03:05 White Blood Count 8.1 K/UL (4.8-10.8) Red Blood Count 3.17 M/UL (4.20-5.40) L Hemoglobin 9.0 G/DL (12.0-16.0) L Hematocrit 29.8 % (37.0-47.0) L Mean Corpuscular Volume 94 FL (80-99) Mean Corpuscular Hemoglobin 28.4 PG (27.0-31.0) Mean Corpuscular Hemoglobin Concent 30.2 G/DL (32.0-36.0) L Red Cell Distribution Width 18.2 % (11.6-14.8) H Platelet Count 213 K/UL (150-450) Mean Platelet Volume 7.5 FL (6.5-10.1) Neutrophils (%) (Auto) 43.1 % (45.0-75.0) L Lymphocytes (%) (Auto) 29.9 % (20.0-45.0) Monocytes (%) (Auto) 9.3 % (1.0-10.0) Eosinophils (%) (Auto) 16.8 % (0.0-3.0) H Basophils (%) (Auto) 0.9 % (0.0-2.0) Prothrombin Time 13.2 SEC (9.30-11.50) H Prothromb Time International Ratio 1.2 (0.9-1.1) H Activated Partial Thromboplast Time 34 SEC (23-33) H Sodium Level 142 MMOL/L (136-145) Potassium Level 3.2 MMOL/L (3.5-5.1) L Chloride Level 100 MMOL/L (98-107) Carbon Dioxide Level 37 MMOL/L (21-32) H Anion Gap 5 mmol/L (5-15) Blood Urea Nitrogen 27 mg/dL (7-18) H Creatinine 1.2 MG/DL (0.55-1.30) Estimat Glomerular Filtration Rate 47.8 mL/min (>60) Glucose Level 101 MG/DL (74-106) Calcium Level 10.5 MG/DL (8.5-10.1) H Total Bilirubin 0.6 MG/DL (0.2-1.0) Aspartate Amino Transf (AST/SGOT) 32 U/L (15-37) Alanine Aminotransferase (ALT/SGPT) 19 U/L (12-78) Alkaline Phosphatase 61 U/L (46-116) Total Protein 6.6 G/DL (6.4-8.2) Albumin 2.5 G/DL (3.4-5.0) L Globulin 4.1 g/dL Albumin/Globulin Ratio 0.6 (1.0-2.7) L Microbiology Date/Time Source Procedure Growth Status 08/05/20 16:20 Nasopharynx Coronavirus COVID-19 PCR ([facility]) - Final Complete Objective HEAD AND NECK: Status post tracheostomy LUNGS: Coarse rhonchi. CARDIOVASCULAR: Regular S1 and S2 with no gallop. ABDOMEN: Soft.S/P PEG EXTREMITIES: 1+ pitting edema. Hill Burger MD Aug 07, 2020 14:33
--- NOTE | 2020-08-07 14:34 | NUR ---
insurance CLINICALS FAXED TO [place] T: [phone] EXT [id number] F: [phone]
--- NOTE | 2020-08-07 16:05 | NUR ---
NURSE NOTES: Bed bath given. Kept dry, clean and comfortable.
--- NOTE | 2020-08-07 16:46 | Diagnostic Imaging Report ---
Indication: Shortness of breath Technique: One view of the chest Comparison: 6 hours earlier Findings: Tracheostomy remains. Previously demonstrated chest vent catheter has been removed. There is no pneumothorax. Bilateral infiltrates are unchanged. Impression: Interim chest vent catheter removal. No pneumothorax. Unchanged bilateral infiltrates
--- NOTE | 2020-08-07 16:50 | NUR ---
NURSE NOTES: Spoke with Dr. Devine and informed CXR result. Ordered another CXR tomorrow AM.
--- NOTE | 2020-08-07 16:55 | Diagnostic Imaging Report ---
Indication: Dyspnea Technique: One view of the chest Comparison: 08/05/2020 Findings: Tracheostomy, right chest vent catheter remain. Bilateral infiltrates are unchanged. There is no pneumothorax. Impression: Unchanged, over 2 days, findings as above.
--- NOTE | 2020-08-07 19:02 | NUR ---
NURSE HAND-OFF REPORT: Latest Vital Signs: Temperature 99.5 , Pulse 85 , B/P 115 /53 , Respiratory Rate 21 , O2 SAT 100 , T-Piece, O2 Flow Rate 10.0 . Vital Sign Comment: Stable EKG Rhythm: Sinus Rhythm Rhythm change?: N Notified?: N Response: Latest Meyers Fall Score: 50 Fall Risk: High Risk Safety Measures: Call light Within Reach, Bed Alarm Zone 3, Side Rails Side Rails x2, Bed position Low and Locked. Fall Precautions: Yellow Socks Yellow Gown Door Sign Patient Fall Education Report given to RAKEL Brenner. Endorsed plan of care.
--- NOTE | 2020-08-07 19:05 | NUR ---
Received report from RAKEL Minor and assumed care of patient. Patient appears to be resting comfortably in bed on trach collar with O2 saturation 99%. Patient in NAD.
[2020-08-07] MEDS: Miralax 17gm pkt ORAL SCH (20:52)
[2020-08-07] MEDS: Acetaminophen 650mg/20.3ml NG PRN (21:52)
--- NOTE | 2020-08-07 22:15 | NUR ---
Patient in NAD, stable on T-piece at 40%. VSS. Repositioned. Will continue to monitor.
--- NOTE | 2020-08-07 22:18 | Surgery Progress Note ---
Surgery Progress Note Subjective Procedure Performed right tube chest tube insertion Additional Comments seen this AM chest tube removed post removal film without ptx AM cxr ordered dc planning overall improved Objective Last 24 Hour Vital Signs Date Time Temp Pulse Resp B/P (MAP) Pulse Ox O2 Delivery O2 Flow Rate FiO2 08/07/20 20:30 93 29 103/57 (72) 100 08/07/20 20:00 10.0 40 08/07/20 20:00 T-piece 10.0 T-piece 10.0 08/07/20 20:00 99.3 95 26 122/59 (80) 100 08/07/20 19:30 90 25 107/60 (76) 100 08/07/20 19:15 100 Cool Aerosol 10.0 40 08/07/20 19:00 88 21 120/58 (78) 100 08/07/20 18:00 85 21 115/53 (73) 100 08/07/20 17:00 85 21 107/50 (69) 99 08/07/20 16:00 T-piece T-piece 08/07/20 16:00 40 08/07/20 16:00 99.5 85 16 125/53 (77) 96 08/07/20 15:58 87 08/07/20 15:00 86 19 119/56 (77) 98 08/07/20 14:00 88 24 122/58 (79) 100 08/07/20 13:25 100 Cool Aerosol 10.0 40 08/07/20 13:00 89 19 132/48 (76) 100 08/07/20 12:00 98.3 81 15 135/69 (91) 100 08/07/20 12:00 80 08/07/20 12:00 40 08/07/20 12:00 T-piece T-piece 08/07/20 11:00 80 16 126/68 (87) 100 08/07/20 10:00 77 18 138/72 (94) 99 08/07/20 09:00 73 16 128/62 (84) 100 08/07/20 08:00 T-piece T-piece 08/07/20 08:00 98.9 79 21 140/61 (87) 100 08/07/20 08:00 40 08/07/20 08:00 79 08/07/20 07:08 100 Cool Aerosol 10.0 40 08/07/20 07:00 78 15 140/72 (94) 100 08/07/20 06:00 81 26 98 08/07/20 05:30 81 23 109/50 (69) 100 08/07/20 05:00 84 22 115/57 (76) 100 08/07/20 05:00 84 22 115/57 (76) 100 08/07/20 04:30 92 29 121/48 (72) 99 08/07/20 04:00 35 08/07/20 04:00 Mechanical Ventilator Mechanical Ventilator 08/07/20 04:00 84 08/07/20 04:00 84 22 122/56 (78) 100 08/07/20 03:30 84 22 120/50 (73) 100 08/07/20 03:00 90 22 108/52 (70) 100 08/07/20 02:30 97 28 98/81 (87) 100 08/07/20 02:27 93 27 104/52 (69) 100 08/07/20 02:00 98 27 81/53 (62) 100 08/07/20 01:30 97 23 109/48 (68) 100 08/07/20 01:15 100 Cool Aerosol 10.0 40 08/07/20 01:00 95 30 112/61 (78) 100 08/07/20 00:30 101 24 106/55 (72) 100 08/07/20 00:00 104 08/07/20 00:00 101 26 106/51 (69) 100 08/07/20 00:00 Mechanical Ventilator Mechanical Ventilator 08/06/20 23:30 104 26 104/56 (72) 100 08/06/20 23:00 101 25 105/53 (70) 100 I&O Intake and Output 08/06/20 08/07/20 19:00 07:00 Intake Total 760 ml 660 ml Output Total 1140 ml 1060 ml Balance -380 ml -400 ml Free Water 100 ml Tube Feeding 660 ml 660 ml Output Urine Total 1140 ml 1060 ml Chest Tube Drainage Total 0 ml 0 ml # Bowel Movements 1 Dressing: dry Cardiovascular: RSR Respiratory: decreased breath sounds Abdomen: non-tender, present bowel sounds, non-distended Extremities: no edema, no tenderness, no cyanosis Laboratory Tests Test 08/07/20 03:05 White Blood Count 8.1 K/UL (4.8-10.8) Red Blood Count 3.17 M/UL (4.20-5.40) L Hemoglobin 9.0 G/DL (12.0-16.0) L Hematocrit 29.8 % (37.0-47.0) L Mean Corpuscular Volume 94 FL (80-99) Mean Corpuscular Hemoglobin 28.4 PG (27.0-31.0) Mean Corpuscular Hemoglobin Concent 30.2 G/DL (32.0-36.0) L Red Cell Distribution Width 18.2 % (11.6-14.8) H Platelet Count 213 K/UL (150-450) Mean Platelet Volume 7.5 FL (6.5-10.1) Neutrophils (%) (Auto) 43.1 % (45.0-75.0) L Lymphocytes (%) (Auto) 29.9 % (20.0-45.0) Monocytes (%) (Auto) 9.3 % (1.0-10.0) Eosinophils (%) (Auto) 16.8 % (0.0-3.0) H Basophils (%) (Auto) 0.9 % (0.0-2.0) Prothrombin Time 13.2 SEC (9.30-11.50) H Prothromb Time International Ratio 1.2 (0.9-1.1) H Activated Partial Thromboplast Time 34 SEC (23-33) H Sodium Level 142 MMOL/L (136-145) Potassium Level 3.2 MMOL/L (3.5-5.1) L Chloride Level 100 MMOL/L (98-107) Carbon Dioxide Level 37 MMOL/L (21-32) H Anion Gap 5 mmol/L (5-15) Blood Urea Nitrogen 27 mg/dL (7-18) H Creatinine 1.2 MG/DL (0.55-1.30) Estimat Glomerular Filtration Rate 47.8 mL/min (>60) Glucose Level 101 MG/DL (74-106) Calcium Level 10.5 MG/DL (8.5-10.1) H Total Bilirubin 0.6 MG/DL (0.2-1.0) Aspartate Amino Transf (AST/SGOT) 32 U/L (15-37) Alanine Aminotransferase (ALT/SGPT) 19 U/L (12-78) Alkaline Phosphatase 61 U/L (46-116) Total Protein 6.6 G/DL (6.4-8.2) Albumin 2.5 G/DL (3.4-5.0) L Globulin 4.1 g/dL Albumin/Globulin Ratio 0.6 (1.0-2.7) L Plan Problems: (1) Respiratory distress (2) Respiratory failure Assessment & Plan: 50-year-old female Covid positive respiratory insufficiency intubated on ventilatory support declining. Leukocytosis increase oxygen requirement. Vent settings per pulmonology reviewed identified and agree. Unfortunately further surgical invention at this time is not appropriate as patient is not a candidate and her current condition. Prognosis overall guarded. Tracheostomy can be considered in the future if recovering or shows improvement and requires unable to be weaned from ventilator support. Currently okay for nutritional optimization with NG tube. Will need significant monitoring for decubitus formation given patient's size and condition. Okay for air mattress tolerated. Turn every 2 hours as tolerated. Patient is otherwise critically ill and blood pressure labile. Will need to monitor closely.Bilateral infiltrates are again demonstrated. Stable tube and line positions. will need trach will need to wean vent first no cuff leak trach okay Improving weaning well DC planning placement much improved peg placement trach changed acls now resuscitated (3) Hypoxia (4) Pneumonia due to COVID-19 virus Assessment & Plan: ++ as per pulm and ID (5) Diabetes mellitus out of control Assessment & Plan: DAILY ESTIMATED NEEDS: Needs based on Critical care, obesity 11-14kcal/kg actual body wt (140kg) kcals/kg 8405-0133 total kcals 1.5-2.0g prot/kg IBW (64.5kg) g protein/kg 96-129 g total protein 25-30ml/kg abw (83kg) mL/kg 7965-6814 total fluid mLs NUTRITION DIAGNOSIS: Swallowing difficulty R/T respiratory failure as evidenced by pt orally intubated and sedated, on OGT feeds. CURRENT TF: Vital 1.2 goal of 60ml/hr ENTERAL NUTRITION RECOMMENDATIONS: Vital AF 1.2 @ 60ml/hr x 24 hrs to provide 1440ml, 1728kcal, 108g prot, 1168ml free water * Maintain current critical care and carb controlled TF formula of Vital AF * TF @ goal meeds 100% est kcal/prot needs * HOB over 30 degrees/ water flush per MD TF may be lowered to 55ml/hr for improved BG control while maintaining Kcal and pro needs. ADDITIONAL RECOMMENDATIONS: * Calibrated bedscale wt * Monitor Propofol rate, need for TF adjustment-> now off * Monitor BGs closely : now improved, on novolog q 6rs + NISS * Monitor lytes- K elevated, monitor need for TF change * Rec bowel regimen- now w/ rectal tube . (6) Pneumothorax on right Assessment & Plan: right tension pneumothorax trach changed for cuff leak and decreased volumes pressures high after and ptx tension acls resuscitated right chest tube placed ptx resolved cont chest tube to suction am cxr wean vent Right chest tube, tracheostomy, nasogastric tube remain. Previously demonstrated subcutaneous emphysema has nearly completely cleared, with only questionably small residual in the left supraclavicular fossa. Extensive bilateral infiltrates persist. There is no pneumothorax currently. The heart is borderline enlarged. Pneumoperitoneum persists, may be slightly decreased Impression: Markedly improved subcutaneous emphysema Unchanged bilateral infiltrates Persistent but perhaps slightly decreased pneumoperitoneum chest tube removed 07/29 f/u cxr new chest tube 07/30 tolerating tube feeds no n/v weaning vent well cxr reviewed tube okay no large ptx stable cont chest tube to water seal (7) DEVENDRA (acute kidney injury) (8) Morbid obesity Az Devine Aug 07, 2020 22:18
[2020-08-08] VITALS (24 sets, daily range): BP systolic 102–127; BP diastolic 50–63
--- NOTE | 2020-08-08 | NUR ---
Midnight assessment completed, no changes in exam. Patient VSS on T-piece. Patient in NAD
[2020-08-08] MEDS: Metoclopramide 10mg/2ml Inj IVP SCH ×3 (00:18→11:58)
--- NOTE | 2020-08-08 02:00 | NUR ---
Pt remains stable, no changes since last note. Will continue to monitor.
--- NOTE | 2020-08-08 04:40 | NUR ---
Complete bath and linen change performed. Patient had small BM-diarrhea. Patient remains stable on T-piece, afebrile, and VSS. No changes in assessment findings. pt does report pain in lower back 4/10 requesting pain medication. Administered medication per eMAR. Patient in no acute distress. Will continue to monitor.
[2020-08-08 04:49] LABS: HEMATOCRIT 31.6 % (37.0-47.0); HEMOGLOBIN 9.6 G/DL (12.0-16.0); MEAN CORPUSCULAR VOLUME 93 FL (80-99); PLATELET COUNT 201 K/UL (150-450); RED CELL DISTRIBUTION WIDTH 17.9 % (11.6-14.8); WHITE BLOOD COUNT 6.9 K/UL (4.8-10.8)
[2020-08-08] MEDS: HYDROcodone/Acetamin 5/325 tab ORAL PRN (04:50)
[2020-08-08 04:59] LABS: CALCIUM 11.1 MG/DL (8.5-10.1); CREATININE 1.1 MG/DL (0.55-1.30); POTASSIUM 3.6 MMOL/L (3.5-5.1)
--- NOTE | 2020-08-08 06:30 | Hematology/Onc Progress Note ---
Assessment/Plan Assessment/Plan # Deep vein thrombosis of the right calf --> given onoing anemia and low plts --> consider ivc if bleeding--once stable, needs it placed --> once stable, for radiology for ivc filter placement --> on lovenox bid now # Thrombocytopenia is due to infection/underlying covid19+++ --> ABX ceftriaxone -->zosyn-->off-->meropenem/vanc-->off --> on steriods likely cause of initial wbc --> per pulm --> plt 107->156-->192-->205 --> smear reviewed # Leukocytosis due to Pneumonia due to COVID-19 virus --> per pulm rx -> sp remdesivir --> ABX vas per above --> wbc 11.9-->11-->21-->8.8-->11.7-->13-->24-->9 # Anemia due to chronic disease --> hgb goal is >7 --> transfuse prn --> ferritin is >1000 --> hold off on iron --> 10-->9.8->9-->8-->8.2->>7.1-->7.9->7.5-->9.5-->8.5-->8.8->8.4->8.9->9 --> 1 unit prbc 3/ # Elevated ddimer due to covid19++ --> duplex legs is negative --> underlying covid rx # Hypoxia -> due to covid19 --> steriods as needed # Hypoxemia --> rx same as above # Respiratory failure --> on vent/trach --> per pulm # Diabetes mellitus out of control --> hgb a1c goal <7 # Dysphagia --> s/p peg # Poor prognosis # Dvt ppx ivc filter once more stable --> dvt ppx now lovenox sq Appreciate consultation and dw RN Subjective Constitutional: Denies: no symptoms, chills, fever, malaise, weakness, other HEENT: Denies: no symptoms, eye pain, blurred vision, tearing, double vision, ear pain, ear discharge, nose pain, nose congestion, throat pain, throat swelling, mouth pain, mouth swelling, other Cardiovascular: Denies: no symptoms, chest pain, edema, irregular heart rate, lightheadedness, palpitations, syncope, other Respiratory: Denies: no symptoms, cough, shortness of breath, SOB with excert ion, SOB at rest, sputum, wheezing, other Gastrointestinal/Abdominal: Denies: no symptoms, abdomen distended, abdominal pain, black stools, tarry stools, blood in stool, constipated, diarrhea, difficulty swallowing, nausea, poor appetite, poor fluid intake, rectal bleeding, vomiting, other Genitourinary: Denies: no symptoms, burning, discharge, frequency, flank pain, hematuria, incontinence, pain, urgency, other Endocrine: Denies: no symptoms, excessive sweating, flushing, intolerance to cold, intolerance to heat, increased hunger, increased thirst, increased urine, unexplained weight gain, unexplained weight loss, other Allergies: Coded Allergies: No Known Allergies (Unverified , 05/28/20) Subjective 06/10 nv, on vent, with ogt, on fentanyl and versed, plt stable 06/11 nv, vent adjusted is on ogt, meds reviewed 06/12 nv, vent, meds noted, labs noted, no bleeding, hgb 10.4 06/13 nv, is on vent, meds reviewed, no bleeding, cbc reviewed 06/14 nv, on vent, tachy, labs reviewed, gross hematuria, febrile overnight, abx 06/17 nv, on vent, labs noted, no major changes, feeling better overnight 06/18 nv, meds reviewed, labs noted, no major events, hgb 8.6 06/19 nv, remains intubated, with fluids, labs reviewed, meds noted 06/20 nv, intubated remains on restraints, meds noted as well, as labs 06/21 nv, remains on vent, on restraints, meds reviewed, labs noted 06/22: covering Dr. Del Cid no acute events 06/23 sedated, on vent, nv, intubated, meds reviewed, versed 06/24 nv, on vent, no night sweats, no bleeding, remains in icu 06/25 nv, on vent, icu, meds noted, no bleeding, comfortable 06/26 nv, on versed, icu, weaning parameters, labs noted 06/27 nv, overnight fighting vent, as per pulm fentanyl on board 06/28 nv, on vent, labs reviewed, as per pulm, meds noted 06/30 nv, icu, labs pending, is on fentanyl, versed, no new changes 07/01 nv, icu, is on vent, labs pending, no new changes per rn 07/02 nv, icu is on vent, labs noted, hgb is stable 07/03 nv, icu, is on vent, potential trrach when stable, cbc reviewed 07/04 icu, nv, labs are noted, stable for trach today dw Rn Dl 07/05 icu, nv, on vent, with ng and picc in place, labs noted, s/p trach 07/07 icu, nv, on tv, no bleeding, labs noted, meds reviewed 07/08 icu, nv, on tv, labs reviewed, meds noted, no bleeding 07/09 icu, nv, meds noted, no bleeding, blood transfusion was completed 07/10 icu, nv, labs ntoed, no bleeding, hgb improved, hgb 7.8 07/11 icu, nv, labs reviewed, hgb is improved, for ivcf if stabilizes 07/12 icu, nv, labs reviewed, meds noted, no bleeding, remains on vent 07/13 icu, on vent, nv, no bleeding, labs reviewed, no major events, dw rn 07/14 icu, on vent, nv, tolerating ngt feeds, bowen Rn, meds reviewed 07/15 icu, on vent, trach, tolerating ngt, meds noted, no bleeding 07/16 icu, vent, labs are noted, with trach, is stable, hgb 9.2 07/17 icu, had a bm overnight, remains on vent with trach, labs noted 07/18 icu, nv, labs are ntoed, no bleeding, on trach, on levophed 07/20 nc, icu, meds noted, v/t, no bleeding, labs noted, on versed 07/21 nv, trach/vent, tube feeds on hold, labs reviewed, icu 07/22 nv, icu, bp remains high, on v/t, labs noted, no bleeding 07/23 nv, ct is in place, on v/t, meds reviewed, in icu, on LEVO 07/24 nv, ct with blood secretions, to get 1 unit prbc today, icu 07/25 icu, nv, trach/v, obtunded, sedated, no bleeding, dw rn 07/26 icu, nv, v/t, with gt, remains obtunded, as well as sedated, labs noted 07/27: no events. 07/28: remains intubated on vent 07/29 agitated, tachypneic, tachycardic is on vent, labs reviewed, meds noted 07/30 vent setting adjusted, is afebrile, no bleeding, tachycardic, labs noted 07/31 icu, trach/vent, on fentanyl gtt, labs reviewed, no bleeding 08/01 icu, nv, on t/v, fentanyl, hgb 9.4, no hemolysis, meds noted 08/02 icu, nv, t/v, labs reviewed, meds noted, no bleeding, did have vomiting o/n 08/04 nv, is in icu, labs reviewed, meds noted, no bleeding, dw rn 08/05 nv, icu, meds reviewed, bowen rn, no major bleeding 08/06 awaiting covid test repeat, in icu, meds noted, on t/v, nv 08/07 trach collar, icu, is on 10l, meds noted, labs reviewed 08/08 labs reviewed, icu, trach/collar, meds reviewed Objective Objective Current Medications Medications (Trade) Dose Ordered Sig/Zelda Route PRN Reason Start Time Stop Time Status Last Admin Dose Admin Acetaminophen (Tylenol) 650 mg Q4H PRN NG Temp >100.5 07/27/20 03:45 08/26/20 03:44 08/07/20 21:52 Acetaminophen/ Hydrocodone Bitart ([place] 5/325) 1 tab Q4H PRN ORAL Moderate Pain (Pain Scale 4-6) 08/02/20 10:45 08/09/20 10:44 08/08/20 04:50 Calcitonin Drifting (Miacalcin) 1 sprays DAILY NASAL 07/22/20 14:00 10/20/20 13:59 08/07/20 08:18 Dextrose (Dextrose 50%) 25 ml Q30M PRN IV Hypoglycemia 06/05/20 10:45 09/03/20 10:44 Dextrose (Dextrose 50%) 50 ml Q30M PRN IV Hypoglycemia 06/05/20 10:45 4/13/21 10:44 Docusate Sodium (Colace) 100 mg EVERY 12 HOURS GT 08/01/20 21:00 08/25/20 17:59 08/07/20 08:16 Enoxaparin Sodium (Lovenox) 100 mg EVERY 12 HOURS SUBQ 08/04/20 09:00 10/15/20 20:59 08/07/20 21:50 Guaifenesin/ Codeine Phosphate (Robitussin with codeine) 5 ml Q6H PRN NG For Cough 07/14/20 14:15 08/13/20 14:14 07/18/20 21:44 Hydromorphone HCl (Dilaudid) 2 mg Q4H PRN IVP Severe Pain (Pain Scale 7-10) 08/05/20 06:45 08/09/20 10:44 Lansoprazole (Prevacid) 30 mg DAILY GT 07/18/20 09:00 08/09/20 08:59 08/07/20 08:16 Levofloxacin (Levaquin) 750 mg DAILY ORAL 08/03/20 12:00 08/10/20 11:59 08/07/20 08:17 Lorazepam (Ativan 2mg/ml 1ml) 1 mg Q4H PRN IV For Anxiety 08/02/20 13:45 08/09/20 13:44 08/02/20 22:19 Metoclopramide HCl (Reglan) 10 mg Q6H IVP 08/01/20 18:00 08/31/20 17:59 08/08/20 05:36 Midodrine (Pro-Amatine) 10 mg Q8H PRN GT BP below 100 systolic 08/06/20 10:30 11/04/20 10:29 Ondansetron HCl (Zofran) 4 mg Q6H PRN IVP Nausea & Vomiting 08/02/20 10:00 09/01/20 09:59 Polyethylene Glycol (Miralax) 17 gm BEDTIME ORAL 07/26/20 21:00 08/25/20 20:59 08/06/20 20:32 Quetiapine Fumarate (SEROqueL) 75 mg Q8HR GT 08/02/20 14:00 08/30/20 13:59 08/08/20 05:36 Last 24 Hour Vital Signs Date Time Temp Pulse Resp B/P (MAP) Pulse Ox O2 Delivery O2 Flow Rate FiO2 08/08/20 06:00 95 23 111/57 (75) 99 08/08/20 05:30 90 24 124/51 (75) 99 08/08/20 05:00 86 22 123/58 (79) 99 08/08/20 04:30 98.7 88 23 121/62 (81) 100 08/08/20 04:00 91 08/08/20 04:00 10.0 40 08/08/20 04:00 91 23 119/61 (80) 99 08/08/20 04:00 T-piece 10.0 T-piece 10.0 08/08/20 03:30 89 23 115/60 (78) 100 08/08/20 03:00 89 23 125/60 (81) 100 08/08/20 02:30 87 22 118/63 (81) 100 08/08/20 02:00 83 20 113/60 (77) 100 08/08/20 01:30 100 Cool Aerosol 10.0 40 08/08/20 01:30 86 23 105/54 (71) 100 08/08/20 01:00 88 18 118/55 (76) 100 08/08/20 00:30 85 19 113/55 (74) 99 08/08/20 00:00 10.0 40 08/08/20 00:00 93 08/08/20 00:00 T-piece 10.0 T-piece 10.0 08/08/20 00:00 99.2 88 22 108/51 (70) 99 08/07/20 23:30 93 24 109/61 (77) 99 08/07/20 23:00 94 21 109/49 (69) 98 08/07/20 22:30 94 24 111/53 (72) 100 08/07/20 22:00 90 29 117/52 (73) 100 08/07/20 21:30 93 24 112/59 (76) 100 08/07/20 21:00 92 24 111/57 (75) 100 08/07/20 20:30 93 29 103/57 (72) 100 08/07/20 20:00 10.0 40 08/07/20 20:00 90 08/07/20 20:00 T-piece 10.0 T-piece 10.0 08/07/20 20:00 99.3 95 26 122/59 (80) 100 08/07/20 19:30 90 25 107/60 (76) 100 08/07/20 19:15 100 Cool Aerosol 10.0 40 08/07/20 19:00 88 21 120/58 (78) 100 08/07/20 18:00 85 21 115/53 (73) 100 08/07/20 17:00 85 21 107/50 (69) 99 08/07/20 16:00 T-piece T-piece 08/07/20 16:00 40 08/07/20 16:00 99.5 85 16 125/53 (77) 96 08/07/20 15:58 87 08/07/20 15:00 86 19 119/56 (77) 98 08/07/20 14:00 88 24 122/58 (79) 100 08/07/20 13:25 100 Cool Aerosol 10.0 40 08/07/20 13:00 89 19 132/48 (76) 100 08/07/20 12:00 98.3 81 15 135/69 (91) 100 08/07/20 12:00 80 08/07/20 12:00 40 08/07/20 12:00 T-piece T-piece 08/07/20 11:00 80 16 126/68 (87) 100 08/07/20 10:00 77 18 138/72 (94) 99 08/07/20 09:00 73 16 128/62 (84) 100 08/07/20 08:00 T-piece T-piece 08/07/20 08:00 98.9 79 21 140/61 (87) 100 08/07/20 08:00 40 08/07/20 08:00 79 08/07/20 07:08 100 Cool Aerosol 10.0 40 08/07/20 07:00 78 15 140/72 (94) 100 08/07/20 06:00 81 26 98 08/07/20 05:30 81 23 109/50 (69) 100 08/07/20 05:00 84 22 115/57 (76) 100 08/07/20 05:00 84 22 115/57 (76) 100 08/07/20 04:30 92 29 121/48 (72) 99 08/07/20 04:00 35 08/07/20 04:00 Mechanical Ventilator Mechanical Ventilator 08/07/20 04:00 84 08/07/20 04:00 84 22 122/56 (78) 100 08/07/20 03:30 84 22 120/50 (73) 100 08/07/20 03:00 90 22 108/52 (70) 100 08/07/20 02:30 97 28 98/81 (87) 100 08/07/20 02:27 93 27 104/52 (69) 100 08/07/20 02:00 98 27 81/53 (62) 100 08/07/20 01:30 97 23 109/48 (68) 100 08/07/20 01:15 100 Cool Aerosol 10.0 40 08/07/20 01:00 95 30 112/61 (78) 100 08/07/20 00:30 101 24 106/55 (72) 100 08/07/20 00:00 104 08/07/20 00:00 101 26 106/51 (69) 100 08/07/20 00:00 Mechanical Ventilator Mechanical Ventilator 08/06/20 23:30 104 26 104/56 (72) 100 08/06/20 23:00 101 25 105/53 (70) 100 08/06/20 22:00 106 27 108/55 (72) 100 08/06/20 21:30 103 35 114/56 (75) 100 08/06/20 21:00 103 26 110/50 (70) 100 08/06/20 20:30 102 28 107/53 (71) 100 08/06/20 20:00 Mechanical Ventilator Mechanical Ventilator 08/06/20 20:00 100 26 104/53 (70) 100 08/06/20 20:00 35 08/06/20 19:30 100 26 97/57 (70) 100 08/06/20 19:14 100 Cool Aerosol 10.0 40 08/06/20 19:00 102 29 109/48 (68) 100 08/06/20 18:00 99 25 104/51 (68) 100 08/06/20 17:00 107 22 111/76 (88) 99 08/06/20 16:40 100 Cool Aerosol 10.0 40 08/06/20 16:00 35 08/06/20 16:00 Mechanical Ventilator Mechanical Ventilator 08/06/20 16:00 99.2 93 28 98/50 (66) 99 3/16/21 16:00 94 08/06/20 15:10 88 30 35 08/06/20 15:00 98 25 108/53 (71) 98 08/06/20 14:00 87 21 104/46 (65) 100 08/06/20 13:00 89 30 147/107 (120) 99 08/06/20 12:30 89 26 130/67 (88) 100 08/06/20 12:00 87 08/06/20 12:00 Mechanical Ventilator Mechanical Ventilator 08/06/20 12:00 88 23 141/67 (91) 100 08/06/20 12:00 35 08/06/20 12:00 98.4 87 30 141/67 (91) 100 08/06/20 11:30 89 20 125/61 (82) 100 08/06/20 11:10 89 28 35 08/06/20 11:00 97 21 129/54 (79) 100 08/06/20 10:00 97 24 126/66 (86) 99 08/06/20 10:00 99 20 126/66 (86) 100 08/06/20 09:00 96 30 123/67 (85) 100 08/06/20 08:00 35 08/06/20 08:00 92 08/06/20 08:00 99.3 88 29 116/47 (70) 100 08/06/20 08:00 Mechanical Ventilator Mechanical Ventilator 08/06/20 07:10 89 35 35 08/06/20 07:00 101 24 121/60 (80) 98 Intake and Output 08/07/20 08/08/20 19:00 07:00 Intake Total 710 ml 805 ml Output Total 810 ml 800 ml Balance -100 ml 5 ml Free Water 50 ml 200 ml Tube Feeding 660 ml 605 ml Output Urine Total 810 ml 800 ml Chest Tube Drainage Total 0 ml # Bowel Movements 2 1 Labs Test 08/05/20 11:00 08/06/20 05:28 08/06/20 08:33 08/07/20 03:05 Arterial Blood pH 7.517 (7.350-7.450) 7.458 (7.350-7.450) Arterial Blood Partial Pressure CO2 59.5 mmHg (35.0-45.0) 57.1 mmHg (35.0-45.0) Arterial Blood Partial Pressure O2 55.0 mmHg (75.0-100.0) 84.6 mmHg (75.0-100.0) Arterial Blood HCO3 47.2 mmol/L (22.0-26.0) 39.5 mmol/L (22.0-26.0) Arterial Blood Oxygen Saturation 88.2 % (95-100) 95.6 % (95-100) Arterial Blood Base Excess 21.5 (-2-2) 13.7 (-2-2) Jeremiah Test Positive Positive White Blood Count 10.9 K/UL (4.8-10.8) 8.1 K/UL (4.8-10.8) Red Blood Count 3.36 M/UL (4.20-5.40) 3.17 M/UL (4.20-5.40) Hemoglobin 9.6 G/DL (12.0-16.0) 9.0 G/DL (12.0-16.0) Hematocrit 31.5 % (37.0-47.0) 29.8 % (37.0-47.0) Mean Corpuscular Volume 94 FL (80-99) 94 FL (80-99) Mean Corpuscular Hemoglobin 28.5 PG (27.0-31.0) 28.4 PG (27.0-31.0) Mean Corpuscular Hemoglobin Concent 30.4 G/DL (32.0-36.0) 30.2 G/DL (32.0-36.0) Red Cell Distribution Width 18.4 % (11.6-14.8) 18.2 % (11.6-14.8) Platelet Count 266 K/UL (150-450) 213 K/UL (150-450) Mean Platelet Volume 7.5 FL (6.5-10.1) 7.5 FL (6.5-10.1) Neutrophils (%) (Auto) 58.5 % (45.0-75.0) 43.1 % (45.0-75.0) Lymphocytes (%) (Auto) 22.0 % (20.0-45.0) 29.9 % (20.0-45.0) Monocytes (%) (Auto) 7.9 % (1.0-10.0) 9.3 % (1.0-10.0) Eosinophils (%) (Auto) 10.8 % (0.0-3.0) 16.8 % (0.0-3.0) Basophils (%) (Auto) 0.8 % (0.0-2.0) 0.9 % (0.0-2.0) Sodium Level 142 MMOL/L (136-145) 142 MMOL/L (136-145) Potassium Level 3.7 MMOL/L (3.5-5.1) 3.2 MMOL/L (3.5-5.1) Chloride Level 98 MMOL/L (98-107) 100 MMOL/L (98-107) Carbon Dioxide Level 40 MMOL/L (21-32) 37 MMOL/L (21-32) Anion Gap 4 mmol/L (5-15) 5 mmol/L (5-15) Blood Urea Nitrogen 25 mg/dL (7-18) 27 mg/dL (7-18) Creatinine 1.1 MG/DL (0.55-1.30) 1.2 MG/DL (0.55-1.30) Estimat Glomerular Filtration Rate 52.8 mL/min (>60) 47.8 mL/min (>60) Glucose Level 121 MG/DL (74-106) 101 MG/DL (74-106) Calcium Level 10.9 MG/DL (8.5-10.1) 10.5 MG/DL (8.5-10.1) Phosphorus Level 5.2 MG/DL (2.5-4.9) Magnesium Level 1.8 MG/DL (1.8-2.4) Total Bilirubin 0.5 MG/DL (0.2-1.0) 0.6 MG/DL (0.2-1.0) Direct Bilirubin 0.1 MG/DL (0.0-0.3) Aspartate Amino Transf (AST/SGOT) 33 U/L (15-37) 32 U/L (15-37) Alanine Aminotransferase (ALT/SGPT) 21 U/L (12-78) 19 U/L (12-78) Alkaline Phosphatase 66 U/L (46-116) 61 U/L (46-116) Total Protein 7.2 G/DL (6.4-8.2) 6.6 G/DL (6.4-8.2) Albumin 2.8 G/DL (3.4-5.0) 2.5 G/DL (3.4-5.0) Prothrombin Time 13.2 SEC (9.30-11.50) Prothromb Time International Ratio 1.2 (0.9-1.1) Activated Partial Thromboplast Time 34 SEC (23-33) Globulin 4.1 g/dL Albumin/Globulin Ratio 0.6 (1.0-2.7) Test 08/08/20 03:35 White Blood Count 6.9 K/UL (4.8-10.8) Red Blood Count 3.40 M/UL (4.20-5.40) Hemoglobin 9.6 G/DL (12.0-16.0) Hematocrit 31.6 % (37.0-47.0) Mean Corpuscular Volume 93 FL (80-99) Mean Corpuscular Hemoglobin 28.3 PG (27.0-31.0) Mean Corpuscular Hemoglobin Concent 30.4 G/DL (32.0-36.0) Red Cell Distribution Width 17.9 % (11.6-14.8) Platelet Count 201 K/UL (150-450) Mean Platelet Volume 8.1 FL (6.5-10.1) Neutrophils (%) (Auto) % (45.0-75.0) Lymphocytes (%) (Auto) % (20.0-45.0) Monocytes (%) (Auto) % (1.0-10.0) Eosinophils (%) (Auto) % (0.0-3.0) Basophils (%) (Auto) % (0.0-2.0) Sodium Level 143 MMOL/L (136-145) Potassium Level 3.6 MMOL/L (3.5-5.1) Chloride Level 104 MMOL/L (98-107) Carbon Dioxide Level 34 MMOL/L (21-32) Anion Gap 5 mmol/L (5-15) Blood Urea Nitrogen 29 mg/dL (7-18) Creatinine 1.1 MG/DL (0.55-1.30) Estimat Glomerular Filtration Rate 52.8 mL/min (>60) Glucose Level 123 MG/DL (74-106) Calcium Level 11.1 MG/DL (8.5-10.1) Height (Feet): 5 Height (Inches): 5.00 Weight (Pounds): 223 Objective GeNL: nv HEENT: ngt++ Pulm: vent/trach++ CV: rrr Abd: soft, nt, nd ++gt Ext: no cce Myron Condon MD Aug 08, 2020 06:30
--- NOTE | 2020-08-08 07:07 | NUR ---
Report given to RAKEL Mejía who assumed care of patient.
--- NOTE | 2020-08-08 07:55 | NUR ---
NURSE NOTES: Patient received from RAKEL Brenner. she is currently sleeping but awakes when name is called and when shaken lightly, she responds with speech and able to gesture her needs, she is able to understand French but speak Arabic, she is awake and talkative and tracks staff, she denies any pain at this time. currently she is running Glucerna 1.2 at 55ml/hr through G-tube, G-tube is flushing effortlessly, G-tube site is closed with no oozing, drainage sponge is placed around the G-tube site. she remains on a T-piece with 40% cool mist aerosol saturation at 97-98%, ventilator is on stand by, thick secretions suction from the trach site, strong cough in noted by patient, right upper chest there is a puncture site from the thora vent covered with Optifoam. she has a Lennon in place with clear straw color. no wound noted.
--- NOTE | 2020-08-08 08:29 | NUR ---
RD ASSESSMENT & RECOMMENDATIONS SEE CARE ACTIVITY FOR COMPLETE ASSESSMENT DAILY ESTIMATED NEEDS: Needs based on Critical care, obesity 11-14kcal/kg actual body wt (140kg) kcals/kg 5819-4390 total kcals 1.5-2.0g prot/kg IBW (64.5kg) g protein/kg 96-129 g total protein 25-30ml/kg abw (83kg) mL/kg 0433-9334 total fluid mLs NUTRITION DIAGNOSIS: Swallowing difficulty R/T respiratory failure as evidenced by pt now s/p trach placement (07/04), NGT to LIS now dc'ed, s/p PEG placement. CURRENT TF:Glucerna 1.2 goal of 55ml/hr ENTERAL NUTRITION RECOMMENDATIONS: Glucerna 1.2 @ 55ml/hr x 24 hrs + Prosource 1pkt BID to provide 1320ml, 1584kcal, 79g+22g prot, 1063ml free water * As medically appropriate, initiate Glucerna 1.2 @ 25ml/hr x 6hrs * Advance 10ml q 4-6 hrs as tolerated to goal rate. * Add Prosource 1pkt BID (additional 22g prot) to meet protein needs * HOB over 30 degrees/ water flush per MD * Feed @goal w/ hemodynamic stability ADDITIONAL RECOMMENDATIONS: * Calibrated bedscale wt * Monitor Propofol rate, need for TF adjustment-> now off * Monitor BGs closely: now improved, on NISS only * NPO/feeding status- TF now at goal * When tolerating TF at goal add prosource BID to better meet est pro needs . .
[2020-08-08] MEDS: Levofloxacin 750mg tab ORAL SCH (08:54)
[2020-08-08] MEDS: Enoxaparin 100mg Inj SUBQ SCH (08:55)
[2020-08-08] MEDS: Docusate 100mg/10ml Liq GT SCH (08:55)
--- NOTE | 2020-08-08 09:10 | NUR ---
NURSE NOTES: Dr. neville updated the patient remains on t-piece at 40% with saturations at 97-98%. no verbal orders given
--- NOTE | 2020-08-08 09:30 | NUR ---
NURSE NOTES: Dr. Arana updated on patient status and remains afebrile, will continue levofloxacin for four more days.
--- NOTE | 2020-08-08 09:45 | NUR ---
NURSE NOTES: morning medications given to the patient and explained all the medications along with side effects. patient expressed understanding and all concern answered.
--- NOTE | 2020-08-08 10:12 | Cardiology Report ---
APPROVED REPORT EXAM: Two-dimensional and M-mode echocardiogram with Doppler and color Doppler. INDICATION Congestive Heart Failure M-Mode DIMENSIONS IVSd0.9 (0.7-1.1cm)Left Atrium (MM)3.1 (1.6-4.0cm) LVDd63.7 (3.5-5.6cm)Aortic Root3.4 (2.0-3.7cm) PWd1.1 (0.7-1.1cm)Aortic Cusp Exc.1.8 (1.5-2.0cm) IVSs1.3 cmEPSS0.3 (>1.0cm) LVDs2.6 (2.5-4.0cm) PWs1.4 cm <Conclusion> Technically difficult study due to poor acoustical windows. Normal left ventricular chamber size, systolic function and wall motion to extent visualized. Left ventricular ejection fraction estimated to be 55-60%. Study quality precludes accurate assessment of regional wall motion. No evidence of left ventricular hypertrophy. No evidence of pericardial effusion. All other cardiac chamber sizes are within normal limits. Focal aortic valve sclerosis with adequate cusp excursion. Thickened mitral valve leaflets with normal excursion. Mitral annulus and aortic root calcification. Pulmonic valve not well visualized. Normal tricuspid valve structure. IVC at normal size without physiologic collapse. A color flow and spectral Doppler study was performed and revealed: Trace aortic regurgitation. Trace mitral regurgitation. Mitral diastolic velocities suggest reduced left ventricular relaxation c/w mild LV diastolic dysfunction (Grade I ). Mild tricuspid regurgitation. Tricuspid systolic velocities suggests peak right ventricular systolic pressure of 50 mmHg, consistent with mild pulmonary hypertension.
--- NOTE | 2020-08-08 10:45 | NUR ---
NURSE NOTES: Dr. Devine made aware of the patient chest x-ray being taken this morning, awaiting for report to result for a possible transfer to [facility].
--- NOTE | 2020-08-08 10:59 | Diagnostic Imaging Report ---
Indication: Shortness of breath Technique: One view of the chest Comparison: 08/07/2020 Findings: Unchanged bilateral infiltrates. Tracheostomy is again demonstrated. There is no pneumothorax. The heart size is normal. Impression: Unchanged, over one day, findings as above.
--- NOTE | 2020-08-08 11:34 | Infectious Diseases Prog Note ---
Assessment/Plan Assessment/Plan A 1. COVID19 pneumonia 2. Hypoxic respiratory failure 3. Morbid obesity 4. DM type 2 5. Thrombocytopenia 6. leukocytosis resolved 7. Pseudomonas pneumonia 8. Anemia 9. VDRF 10. Cardiac arrest 11. UTI 12. Right pneumothorax 13 Gastrostomy status 14,Serratia sepsis P 1. Finished remdesivir course 2. Finished steroid course 3.Continue Levaquin X 4 days Subjective ROS Limited/Unobtainable: Yes Constitutional: Reports: other - doing better Respiratory: Reports: other - off of ventilator Allergies: Coded Allergies: No Known Allergies (Unverified , 05/28/20) Objective Last 24 Hour Vital Signs Date Time Temp Pulse Resp B/P (MAP) Pulse Ox O2 Delivery O2 Flow Rate FiO2 08/08/20 10:00 90 24 112/62 (79) 100 08/08/20 09:00 98.6 93 21 115/61 (79) 100 08/08/20 08:01 99.5 87 20 127/61 (83) 100 08/08/20 08:00 T-piece 10.0 T-piece 10.0 08/08/20 08:00 87 08/08/20 08:00 87 20 127/61 (83) 100 08/08/20 08:00 10.0 40 08/08/20 07:00 86 20 102/50 (67) 100 08/08/20 06:30 97 21 102/50 (67) 98 08/08/20 06:00 95 23 111/57 (75) 99 08/08/20 05:30 90 24 124/51 (75) 99 08/08/20 05:00 86 22 123/58 (79) 99 08/08/20 04:30 98.7 88 23 121/62 (81) 100 08/08/20 04:00 91 08/08/20 04:00 10.0 40 08/08/20 04:00 91 23 119/61 (80) 99 08/08/20 04:00 T-piece 10.0 T-piece 10.0 08/08/20 03:30 89 23 115/60 (78) 100 08/08/20 03:00 89 23 125/60 (81) 100 08/08/20 02:30 87 22 118/63 (81) 100 08/08/20 02:00 83 20 113/60 (77) 100 08/08/20 01:30 100 Cool Aerosol 10.0 40 08/08/20 01:30 86 23 105/54 (71) 100 08/08/20 01:00 88 18 118/55 (76) 100 08/08/20 00:30 85 19 113/55 (74) 99 08/08/20 00:00 10.0 40 08/08/20 00:00 93 08/08/20 00:00 T-piece 10.0 T-piece 10.0 08/08/20 00:00 99.2 88 22 108/51 (70) 99 08/07/20 23:30 93 24 109/61 (77) 99 08/07/20 23:00 94 21 109/49 (69) 98 08/07/20 22:30 94 24 111/53 (72) 100 08/07/20 22:00 90 29 117/52 (73) 100 08/07/20 21:30 93 24 112/59 (76) 100 08/07/20 21:00 92 24 111/57 (75) 100 08/07/20 20:30 93 29 103/57 (72) 100 08/07/20 20:00 10.0 40 08/07/20 20:00 90 08/07/20 20:00 T-piece 10.0 T-piece 10.0 08/07/20 20:00 99.3 95 26 122/59 (80) 100 08/07/20 19:30 90 25 107/60 (76) 100 08/07/20 19:15 100 Cool Aerosol 10.0 40 08/07/20 19:00 88 21 120/58 (78) 100 08/07/20 18:00 85 21 115/53 (73) 100 08/07/20 17:00 85 21 107/50 (69) 99 08/07/20 16:00 T-piece T-piece 08/07/20 16:00 40 08/07/20 16:00 99.5 85 16 125/53 (77) 96 08/07/20 15:58 87 08/07/20 15:00 86 19 119/56 (77) 98 08/07/20 14:00 88 24 122/58 (79) 100 08/07/20 13:25 100 Cool Aerosol 10.0 40 08/07/20 13:00 89 19 132/48 (76) 100 08/07/20 12:00 98.3 81 15 135/69 (91) 100 08/07/20 12:00 80 08/07/20 12:00 40 08/07/20 12:00 T-piece T-piece Height (Feet): 5 Height (Inches): 5.00 Weight (Pounds): 223 HEENT: mucous membranes moist, status post trach Respiratory/Chest: other - On T bar Cardiovascular: normal rate Abdomen: soft, non tender Extremities: other - decreased edema Neurologic/Psychiatric: alert, responsive Microbiology Date/Time Source Procedure Growth Status 08/05/20 16:20 Nasopharynx Coronavirus COVID-19 PCR ([facility]) - Final Complete Laboratory Tests Test 08/08/20 03:35 White Blood Count 6.9 K/UL (4.8-10.8) Red Blood Count 3.40 M/UL (4.20-5.40) L Hemoglobin 9.6 G/DL (12.0-16.0) L Hematocrit 31.6 % (37.0-47.0) L Mean Corpuscular Volume 93 FL (80-99) Mean Corpuscular Hemoglobin 28.3 PG (27.0-31.0) Mean Corpuscular Hemoglobin Concent 30.4 G/DL (32.0-36.0) L Red Cell Distribution Width 17.9 % (11.6-14.8) H Platelet Count 201 K/UL (150-450) Mean Platelet Volume 8.1 FL (6.5-10.1) Neutrophils (%) (Auto) % (45.0-75.0) Lymphocytes (%) (Auto) % (20.0-45.0) Monocytes (%) (Auto) % (1.0-10.0) Eosinophils (%) (Auto) % (0.0-3.0) Basophils (%) (Auto) % (0.0-2.0) Sodium Level 143 MMOL/L (136-145) Potassium Level 3.6 MMOL/L (3.5-5.1) Chloride Level 104 MMOL/L (98-107) Carbon Dioxide Level 34 MMOL/L (21-32) H Anion Gap 5 mmol/L (5-15) Blood Urea Nitrogen 29 mg/dL (7-18) H Creatinine 1.1 MG/DL (0.55-1.30) Estimat Glomerular Filtration Rate 52.8 mL/min (>60) Glucose Level 123 MG/DL (74-106) H Calcium Level 11.1 MG/DL (8.5-10.1) H Current Medications Medications (Trade) Dose Ordered Sig/Zelda Route PRN Reason Start Time Stop Time Status Last Admin Dose Admin Acetaminophen (Tylenol) 650 mg Q4H PRN NG Temp >100.5 07/27/20 03:45 08/26/20 03:44 08/07/20 21:52 Acetaminophen/ Hydrocodone Bitart ([place] 5/325) 1 tab Q4H PRN ORAL Moderate Pain (Pain Scale 4-6) 08/02/20 10:45 08/09/20 10:44 08/08/20 04:50 Calcitonin Amonate (Miacalcin) 1 sprays DAILY NASAL 07/22/20 14:00 10/20/20 13:59 08/08/20 08:55 Dextrose (Dextrose 50%) 25 ml Q30M PRN IV Hypoglycemia 06/05/20 10:45 09/03/20 10:44 Dextrose (Dextrose 50%) 50 ml Q30M PRN IV Hypoglycemia 06/05/20 10:45 09/03/20 10:44 Docusate Sodium (Colace) 100 mg EVERY 12 HOURS GT 08/01/20 21:00 08/25/20 17:59 08/07/20 08:16 Enoxaparin Sodium (Lovenox) 100 mg EVERY 12 HOURS SUBQ 08/04/20 09:00 10/15/20 20:59 08/08/20 08:55 Guaifenesin/ Codeine Phosphate (Robitussin with codeine) 5 ml Q6H PRN NG For Cough 07/14/20 14:15 08/13/20 14:14 07/18/20 21:44 Hydromorphone HCl (Dilaudid) 2 mg Q4H PRN IVP Severe Pain (Pain Scale 7-10) 08/05/20 06:45 08/09/20 10:44 Lansoprazole (Prevacid) 30 mg DAILY GT 07/18/20 09:00 08/09/20 08:59 08/08/20 08:54 Levofloxacin (Levaquin) 750 mg DAILY ORAL 08/03/20 12:00 08/10/20 11:59 08/08/20 08:54 Lorazepam (Ativan 2mg/ml 1ml) 1 mg Q4H PRN IV For Anxiety 08/02/20 13:45 08/09/20 13:44 08/02/20 22:19 Metoclopramide HCl (Reglan) 10 mg Q6H IVP 08/01/20 18:00 08/31/20 17:59 08/08/20 05:36 Midodrine (Pro-Amatine) 10 mg Q8H PRN GT BP below 100 systolic 08/06/20 10:30 11/04/20 10:29 Ondansetron HCl (Zofran) 4 mg Q6H PRN IVP Nausea & Vomiting 08/02/20 10:00 09/01/20 09:59 Polyethylene Glycol (Miralax) 17 gm BEDTIME ORAL 07/26/20 21:00 08/25/20 20:59 08/06/20 20:32 Quetiapine Fumarate (SEROqueL) 75 mg Q8HR GT 08/02/20 14:00 08/30/20 13:59 08/08/20 05:36 Colt Arana MD Aug 08, 2020 11:34
--- NOTE | 2020-08-08 12:02 | Pulmonology Progress Note ---
Subjective ROS Limited/Unobtainable: Yes Interval Events: Chest tube removed (07/29), Thoravent (07/30-08/07) Constitutional: Reports: other - doing better HEENT: Repors: no symptoms Respiratory: Reports: no symptoms Cardiovascular: Reports: no symptoms Gastrointestinal/Abdominal: Reports: vomiting - resolved Genitourinary: Reports: no symptoms Allergies: Coded Allergies: No Known Allergies (Unverified , 05/28/20) All Systems: reviewed and negative except above Objective Last 24 Hour Vital Signs Date Time Temp Pulse Resp B/P (MAP) Pulse Ox O2 Delivery O2 Flow Rate FiO2 08/08/20 11:00 99 28 113/58 (76) 87 08/08/20 10:00 90 24 112/62 (79) 100 08/08/20 09:00 98.6 93 21 115/61 (79) 100 08/08/20 08:01 99.5 87 20 127/61 (83) 100 08/08/20 08:00 T-piece 10.0 T-piece 10.0 08/08/20 08:00 87 08/08/20 08:00 87 20 127/61 (83) 100 08/08/20 08:00 10.0 40 08/08/20 07:00 86 20 102/50 (67) 100 08/08/20 06:30 97 21 102/50 (67) 98 08/08/20 06:00 95 23 111/57 (75) 99 08/08/20 05:30 90 24 124/51 (75) 99 08/08/20 05:00 86 22 123/58 (79) 99 08/08/20 04:30 98.7 88 23 121/62 (81) 100 08/08/20 04:00 91 08/08/20 04:00 10.0 40 08/08/20 04:00 91 23 119/61 (80) 99 08/08/20 04:00 T-piece 10.0 T-piece 10.0 08/08/20 03:30 89 23 115/60 (78) 100 08/08/20 03:00 89 23 125/60 (81) 100 08/08/20 02:30 87 22 118/63 (81) 100 08/08/20 02:00 83 20 113/60 (77) 100 08/08/20 01:30 100 Cool Aerosol 10.0 40 08/08/20 01:30 86 23 105/54 (71) 100 08/08/20 01:00 88 18 118/55 (76) 100 08/08/20 00:30 85 19 113/55 (74) 99 08/08/20 00:00 10.0 40 08/08/20 00:00 93 08/08/20 00:00 T-piece 10.0 T-piece 10.0 08/08/20 00:00 99.2 88 22 108/51 (70) 99 08/07/20 23:30 93 24 109/61 (77) 99 08/07/20 23:00 94 21 109/49 (69) 98 08/07/20 22:30 94 24 111/53 (72) 100 08/07/20 22:00 90 29 117/52 (73) 100 08/07/20 21:30 93 24 112/59 (76) 100 08/07/20 21:00 92 24 111/57 (75) 100 08/07/20 20:30 93 29 103/57 (72) 100 08/07/20 20:00 10.0 40 08/07/20 20:00 90 08/07/20 20:00 T-piece 10.0 T-piece 10.0 08/07/20 20:00 99.3 95 26 122/59 (80) 100 08/07/20 19:30 90 25 107/60 (76) 100 08/07/20 19:15 100 Cool Aerosol 10.0 40 08/07/20 19:00 88 21 120/58 (78) 100 08/07/20 18:00 85 21 115/53 (73) 100 08/07/20 17:00 85 21 107/50 (69) 99 08/07/20 16:00 T-piece T-piece 08/07/20 16:00 40 08/07/20 16:00 99.5 85 16 125/53 (77) 96 08/07/20 15:58 87 08/07/20 15:00 86 19 119/56 (77) 98 08/07/20 14:00 88 24 122/58 (79) 100 08/07/20 13:25 100 Cool Aerosol 10.0 40 08/07/20 13:00 89 19 132/48 (76) 100 Intake and Output 08/07/20 08/08/20 19:00 07:00 Intake Total 710 ml 860 ml Output Total 810 ml 840 ml Balance -100 ml 20 ml Free Water 50 ml 200 ml Tube Feeding 660 ml 660 ml Output Urine Total 810 ml 840 ml Chest Tube Drainage Total 0 ml # Bowel Movements 2 1 General Appearance: no acute distress HEENT: normocephalic, status post trach Respiratory: chest wall non-tender Cardiovascular: normal peripheral pulses Abdomen: normal bowel sounds, other - s/p PEG Microbiology Date/Time Source Procedure Growth Status 08/05/20 16:20 Nasopharynx Coronavirus COVID-19 PCR ([facility]) - Final Complete Laboratory Tests 08/08/20 03:35: White Blood Count 6.9, Red Blood Count 3.40L, Hemoglobin 9.6L, Hematocrit 31.6L, Mean Corpuscular Volume 93, Mean Corpuscular Hemoglobin 28.3, Mean Corpuscular Hemoglobin Concent 30.4L, Red Cell Distribution Width 17.9H, Platelet Count 201, Mean Platelet Volume 8.1, Neutrophils (%) (Auto) , Lymphocytes (%) (Auto) , Monocytes (%) (Auto) , Eosinophils (%) (Auto) , Basophils (%) (Auto) , Sodium Level 143, Potassium Level 3.6, Chloride Level 104, Carbon Dioxide Level 34H, Anion Gap 5, Blood Urea Nitrogen 29H, Creatinine 1.1, Estimat Glomerular Filtration Rate 52.8, Glucose Level 123H, Calcium Level 11.1H Current Medications Medications (Trade) Dose Ordered Sig/Zelda Route PRN Reason Start Time Stop Time Status Last Admin Dose Admin Acetaminophen (Tylenol) 650 mg Q4H PRN NG Temp >100.5 07/27/20 03:45 08/26/20 03:44 08/07/20 21:52 Acetaminophen/ Hydrocodone Bitart ([place] 5/325) 1 tab Q4H PRN ORAL Moderate Pain (Pain Scale 4-6) 08/02/20 10:45 08/09/20 10:44 08/08/20 04:50 Calcitonin [place] (Miacalcin) 1 sprays DAILY NASAL 07/22/20 14:00 10/20/20 13:59 08/08/20 08:55 Dextrose (Dextrose 50%) 25 ml Q30M PRN IV Hypoglycemia 06/05/20 10:45 09/03/20 10:44 Dextrose (Dextrose 50%) 50 ml Q30M PRN IV Hypoglycemia 06/05/20 10:45 09/03/20 10:44 Docusate Sodium (Colace) 100 mg EVERY 12 HOURS GT 08/01/20 21:00 08/25/20 17:59 08/07/20 08:16 Enoxaparin Sodium (Lovenox) 100 mg EVERY 12 HOURS SUBQ 08/04/20 09:00 10/15/20 20:59 08/08/20 08:55 Guaifenesin/ Codeine Phosphate (Robitussin with codeine) 5 ml Q6H PRN NG For Cough 07/14/20 14:15 08/13/20 14:14 07/18/20 21:44 Hydromorphone HCl (Dilaudid) 2 mg Q4H PRN IVP Severe Pain (Pain Scale 7-10) 08/05/20 06:45 08/09/20 10:44 Lansoprazole (Prevacid) 30 mg DAILY GT 07/18/20 09:00 08/09/20 08:59 08/08/20 08:54 Levofloxacin (Levaquin) 750 mg DAILY ORAL 08/03/20 12:00 08/10/20 11:59 08/08/20 08:54 Lorazepam (Ativan 2mg/ml 1ml) 1 mg Q4H PRN IV For Anxiety 08/02/20 13:45 08/09/20 13:44 08/02/20 22:19 Metoclopramide HCl (Reglan) 10 mg Q6H IVP 08/01/20 18:00 08/31/20 17:59 08/08/20 11:58 Midodrine (Pro-Amatine) 10 mg Q8H PRN GT BP below 100 systolic 08/06/20 10:30 11/04/20 10:29 Ondansetron HCl (Zofran) 4 mg Q6H PRN IVP Nausea & Vomiting 08/02/20 10:00 09/01/20 09:59 Polyethylene Glycol (Miralax) 17 gm BEDTIME ORAL 07/26/20 21:00 08/25/20 20:59 08/06/20 20:32 Quetiapine Fumarate (SEROqueL) 75 mg Q8HR GT 08/02/20 14:00 08/30/20 13:59 08/08/20 05:36 Assessment/Plan Assessment/Plan 1. COVID-19 pneumonia - Intubated 05/28/20 -s/p solumedrol, Rocephin - Continue PEEP 6 ->7 ->5 - Peak airway pressures better - FiO2 100% -> 90 ->80->60 ->40 ->80 ->100 ->70 ->60 -> 50 ->45 ->40 ->50 ->40-> 80 -> 70->50->45->35->40%; PEEP 7 ->5 - s/p PEG - Trach collar (08/06) - Thoravent removed (08/07); f/u CXR reviewed 2. Hyponatremia -Per primary MD 3. Elevated inflammatory markers - has high D dimer; On Lovenox -> Lovenox held given anemia 4. DVT of the right calf - once stable, consider IVC filter per heme vs oral DOAC - was on Lovenox but held given anemia 5. Decreased PEEP S/p trach Reported cuff leak per RN/RT Changed 07/22/20 however still has cuff leak 6. Leukocytosis; now WBC wnl - ID following - BCx Serratia Marcescens - UCx neg - Sp Cx pseudomonas 7. Pulmonary edema - s/p Lasix - now on Diamox Now off Levophed Now off IV sedation; on Seroquel TID, added [place] and Dilaudid prn s/p PEG Now on T-piece Noted Dc planning Medically stable from pulmonary standpoint The care of this patient was discussed with my supervising physician Time spent for this encounter was approximately 31 minutes Vamshi Garcia Aug 08, 2020 12:02
--- NOTE | 2020-08-08 12:14 | Nephrology Progress Note ---
Assessment/Plan Problem List: (1) DEVENDRA (acute kidney injury) (2) Morbid obesity (3) Diabetes mellitus out of control (4) Pneumonia due to COVID-19 virus (5) Respiratory failure Assessment Acute renal failure Obstructive uropathy, clogged [place] Respiratory failure COVID-19 pneumonia Morbid obesity Plan August 08: Labs reviewed. Serum calcium remains high. Chest tube is out stable from renal standpoint of view. If discharged monitor serum calcium phosphorus and magnesium and treat hypercalcemia accordingly. August 07: Labs reviewed. Patient's chest tube is out. Due for repeat chest x- ray. Stable from renal standpoint of view. Upon discharge to have her electrolytes and serum calcium monitored as an outpatient. August 06: Labs reviewed. Serum calcium creeping up. 1 more dose of pamidronate 60 mg ordered. Continues on nasal calcitonin. Patient full code. Continue per other consultants. August 05: Status unchanged. No new labs for today.. Patient full code. Continue per consultants. Stable from renal standpoint of view. August 04: Status unchanged. Labs reviewed. Low magnesium addressed. Patient full code. Continue per consultants. August 03: Status quo. Labs reviewed. Renal parameters stable. Patient full code. Continue per pulmonary. August 02: Continues to have chest tube. Full code. Trach and vent. PEG. Renal parameters stable. August 01: Status quo. Leukocytosis resolved. Renal parameters stable. Continues to be vented through trach. Has PEG. Continue per consultants. Patient is full code. July 31: Chest tube was right reinserted on the right side. Patient remains trached on vent. Leukocytosis worsened . Renal parameters unchanged. Continue per current treatment plan. July 30: Status quo. Labs reviewed. Medication list reviewed. Stable from renal standpoint of view. Patient is full code, trached and vent, also has PEG. July 29: Status quo. Discussed with RN. Labs and medication list reviewed. Stable from renal standpoint of view. July 28: Full code. Labs reviewed. Abnormal electrolytes addressed. Medic ation list reviewed. Patient has trach and PEG and on ventilator. Continue per consultants. July 27: Full code. In ICU. Trach to vent. Labs reviewed. Renal parameters and electrolytes stable. July 26: Remains in ICU. Remains full code. Trach to vent. Labs reviewed. Abnormal electrolytes addressed. Continue per consultants. July 25: Seen in ICU. Received PEG yesterday. Has trach connected to vent. Full code. Labs reviewed. Albumin bolus given. IV started on table feeding via GT tube initiated. July 24: Patient seen in ICU. Status quo. Has trach. Being ventilated. Has right chest tube. Labs reviewed. Continue per consultants. Low magnesium and low phosphorus replaced. July 23: Patient seen in ICU. Discussed with RN. Yesterday the patient developed tension pneumothorax. Patient has a chest tube today. Labs reviewed. Renal parameters stable. Medication list reviewed. July 22: Status quo. Labs reviewed. Serum calcium elevated. Vitamin D discontinued. Pamidronate 60 mg IV given. Continue to monitor calcium and phosphorus. Patient due for PEG today. July 21: Status quo. Awake responsive. Labs reviewed. Medication list reviewed. Stable from renal standpoint of view. Due for PEG tomorrow. Continue her current management. July 20: Status quo. PEG procedure deferred to July 22. Patient remains full code. Abnormal electrolytes addressed. FiO2 50% unchanged. Continue per consultants. July 19: Status quo. Due for PEG insertion today. Remains full code. Trach and vent. Low magnesium addressed. Continue per consultants. FiO2 50%. July 18: Status quo. Labs reviewed. Low potassium addressed. Continue per consultants. Remains full code. July 17: Remains full code. Trach to vent. FiO2 40%. Labs reviewed. Low potassium addressed. Continue per consultants. July 16: Status quo. FiO2 45%. Discussed with RN. Continue to taper her mind altering medications and sedatives. Stable from renal standpoint of view. Abnormal electrolytes addressed. July 15: Full code. FiO2 50%. Intubated on ventilator. No labs drawn today. Continue per consultants. July 14: Status quo. FiO2 50%. Labs reviewed. Renal parameters stable. Continue per current treatment plan and consultants. Medication list reviewed. July 13: FiO2 60% unchanged. Labs reviewed. Renal parameters stable. Medication list reviewed. Continue per consultants. July 12: Full code. Labs reviewed. Normal electrolytes addressed. Continue per pulmonary. Medication list reviewed. July 11: Remains full code. On ventilator. FiO2 down to 65%. Renal parameters stable. Low magnesium addressed. Continue her current management. July 10: Full code. On ventilator. FiO2 70%. Hemoglobin mid sevens. Renal parameters stable. Continue per consultants. July 09: Labs reviewed. Renal parameters stable. FiO2 80% unchanged. Continue per pulmonary. July 08: Labs reviewed. Renal parameters and electrolytes stable. ABG suggestive of high PCO2. At this time patient is on FiO2 of 80%. Continue per pulmonary. Continue to monitor renal parameters. July 07: No CHEM panel drawn today. More potassium given. Continue to monitor renal parameters. Continue per consultants. Discussed with RAKEL Veras. July 06: Low potassium addressed. Albumin bolus for low BP given. Patient remains full code. Continue to monitor electrolytes and renal parameters. Continue per consultants. Hemoglobin low today, transfusion per [facility]. July 05: Trach to vent. FiO2 80%. Renal parameters stable. PCO2 remains high at 44. Continue to monitor renal parameters. July 04: Patient now trach. Full code. Labs reviewed. Renal parameters stable. Low magnesium addressed. July 03: Intubated. Full code. Labs reviewed. Abnormal electrolytes addressed. Continue per consultants. Overall status unchanged. July 02: Remains intubated. Remains full code. Remains on FiO2 of 70%. Labs reviewed. Abnormal electrolytes addressed. Continue per pulmonary. July 01: Remains on 70% FiO2. Full code. Intubated on ventilator. Retaining CO2. Discussed with RN. Will do ABG today. Albumin bolus given. 1 dose of Diamox given. June 30: Status quo. Labs reviewed. Abnormal electrolytes addressed. Remains full code. Remains on ventilator. Magnesium sulfate 4 gram IVPB given. June 29: Full code. Intubated on ventilator. Labs reviewed. Stable from renal standpoint of view. Continue per consultants. June 28: Remains full code. Remains intubated on ventilator. Labs reviewed. Vitamin D supplement ordered. Continue to monitor renal parameters. Continue per consultants. June 27: Remains full code. Intubated on ventilator. Labs reviewed. Abnormal electrolyte addressed. Continue to monitor renal parameters and elect rolytes. Continue per consultants. June 26: Labs reviewed. Remains full code. Remains intubated. Back on NGT feeding. Continue to monitor renal parameters. June 25: Labs reviewed. Renal parameters stable. Remains full code. Due to positional status patient could not be fed via NG tube. Starting TPN? Is being entertained. Continue per consultants. June 24: Labs reviewed. Renal parameters stable. Remains full code. Remains intubated on ventilator. Continue per consultants. June 23: Labs reviewed. Renal parameters stable. Discussed with RN. Abnormal electrolyte addressed. Remains full code. Remains on ventilator. Continue per consultants. June 22: Labs reviewed. Low potassium addressed. Discussed with RAKEL Moran. Patient full code. Remains on ventilator. Continue to monitor renal parameters. June 21. Labs reviewed. Abnormal electrolyte addressed. Full code. Remains on ventilator. Medication list reviewed. Continue per pulmonary management. DC IV fluid, resume Lasix daily, check chest x-ray. June 20: Labs reviewed. Abnormal electrolytes. Patient remains full code. Continue per consultants. Noted and addressed June 19: Labs reviewed. Abnormal electrolytes noted and addressed. Remains intubated on ventilator. Remains full code. June 18: Labs reviewed. Remains intubated on ventilator. Full code. Abnormal electrolyte addressed. Continue as is. June 17: Labs reviewed. Abnormal electrolytes addressed. Patient remains full code and intubated on ventilator. Continue per consultants. Renal parameters are within normal limits. June 16: Labs reviewed. Potassium chloride replaced. Remains full code. Remains intubated on ventilator. Continue per consultants. Continue to monitor renal parameters. June 15: Labs reviewed. Serum creatinine 1. Stable from renal standpoint to view. Continue per consultants. June 14: Labs reviewed. Full code. Serum creatinine of 3.5 down to 1.4. Low potassium addressed. Continue per current treatment plan. Continue to monitor renal parameters. Midodrine started. Albumin bolus given. Previously: DC Lasix drip Increase Protonix dose Monitor renal parameters, electrolytes Per orders Subjective ROS Limited/Unobtainable: Yes Objective Objective Last 24 Hour Vital Signs Date Time Temp Pulse Resp B/P (MAP) Pulse Ox O2 Delivery O2 Flow Rate FiO2 08/08/20 11:00 99 28 113/58 (76) 87 08/08/20 10:00 90 24 112/62 (79) 100 08/08/20 09:00 98.6 93 21 115/61 (79) 100 08/08/20 08:01 99.5 87 20 127/61 (83) 100 08/08/20 08:00 T-piece 10.0 T-piece 10.0 08/08/20 08:00 87 08/08/20 08:00 87 20 127/61 (83) 100 08/08/20 08:00 10.0 40 08/08/20 07:00 86 20 102/50 (67) 100 3/18/21 06:30 97 21 102/50 (67) 98 08/08/20 06:00 95 23 111/57 (75) 99 08/08/20 05:30 90 24 124/51 (75) 99 08/08/20 05:00 86 22 123/58 (79) 99 08/08/20 04:30 98.7 88 23 121/62 (81) 100 08/08/20 04:00 91 08/08/20 04:00 10.0 40 08/08/20 04:00 91 23 119/61 (80) 99 08/08/20 04:00 T-piece 10.0 T-piece 10.0 08/08/20 03:30 89 23 115/60 (78) 100 08/08/20 03:00 89 23 125/60 (81) 100 08/08/20 02:30 87 22 118/63 (81) 100 08/08/20 02:00 83 20 113/60 (77) 100 08/08/20 01:30 100 Cool Aerosol 10.0 40 08/08/20 01:30 86 23 105/54 (71) 100 08/08/20 01:00 88 18 118/55 (76) 100 08/08/20 00:30 85 19 113/55 (74) 99 08/08/20 00:00 10.0 40 08/08/20 00:00 93 08/08/20 00:00 T-piece 10.0 T-piece 10.0 08/08/20 00:00 99.2 88 22 108/51 (70) 99 08/07/20 23:30 93 24 109/61 (77) 99 08/07/20 23:00 94 21 109/49 (69) 98 08/07/20 22:30 94 24 111/53 (72) 100 08/07/20 22:00 90 29 117/52 (73) 100 08/07/20 21:30 93 24 112/59 (76) 100 08/07/20 21:00 92 24 111/57 (75) 100 08/07/20 20:30 93 29 103/57 (72) 100 08/07/20 20:00 10.0 40 08/07/20 20:00 90 08/07/20 20:00 T-piece 10.0 T-piece 10.0 08/07/20 20:00 99.3 95 26 122/59 (80) 100 08/07/20 19:30 90 25 107/60 (76) 100 08/07/20 19:15 100 Cool Aerosol 10.0 40 08/07/20 19:00 88 21 120/58 (78) 100 08/07/20 18:00 85 21 115/53 (73) 100 08/07/20 17:00 85 21 107/50 (69) 99 08/07/20 16:00 T-piece T-piece 08/07/20 16:00 40 08/07/20 16:00 99.5 85 16 125/53 (77) 96 08/07/20 15:58 87 08/07/20 15:00 86 19 119/56 (77) 98 08/07/20 14:00 88 24 122/58 (79) 100 08/07/20 13:25 100 Cool Aerosol 10.0 40 08/07/20 13:00 89 19 132/48 (76) 100 Intake and Output 08/07/20 08/08/20 19:00 07:00 Intake Total 710 ml 860 ml Output Total 810 ml 840 ml Balance -100 ml 20 ml Free Water 50 ml 200 ml Tube Feeding 660 ml 660 ml Output Urine Total 810 ml 840 ml Chest Tube Drainage Total 0 ml # Bowel Movements 2 1 Current Medications Medications (Trade) Dose Ordered Sig/Zelda Route PRN Reason Start Time Stop Time Status Last Admin Dose Admin Acetaminophen (Tylenol) 650 mg Q4H PRN NG Temp >100.5 07/27/20 03:45 08/26/20 03:44 08/08/20 12:20 Acetaminophen/ Hydrocodone Bitart ([place]xton 5/325) 1 tab Q4H PRN ORAL Moderate Pain (Pain Scale 4-6) 08/02/20 10:45 08/09/20 10:44 08/08/20 04:50 Calcitonin [place] (Miacalcin) 1 sprays DAILY NASAL 07/22/20 14:00 10/20/20 13:59 08/08/20 08:55 Dextrose (Dextrose 50%) 25 ml Q30M PRN IV Hypoglycemia 06/05/20 10:45 09/03/20 10:44 Dextrose (Dextrose 50%) 50 ml Q30M PRN IV Hypoglycemia 06/05/20 10:45 09/03/20 10:44 Docusate Sodium (Colace) 100 mg EVERY 12 HOURS GT 08/01/20 21:00 08/25/20 17:59 08/07/20 08:16 Enoxaparin Sodium (Lovenox) 100 mg EVERY 12 HOURS SUBQ 08/04/20 09:00 10/15/20 20:59 08/08/20 08:55 Guaifenesin/ Codeine Phosphate (Robitussin with codeine) 5 ml Q6H PRN NG For Cough 07/14/20 14:15 08/13/20 14:14 07/18/20 21:44 Hydromorphone HCl (Dilaudid) 2 mg Q4H PRN IVP Severe Pain (Pain Scale 7-10) 08/05/20 06:45 08/09/20 10:44 Lansoprazole (Prevacid) 30 mg DAILY GT 07/18/20 09:00 08/09/20 08:59 08/08/20 08:54 Levofloxacin (Levaquin) 750 mg DAILY ORAL 08/03/20 12:00 08/10/20 11:59 08/08/20 08:54 Lorazepam (Ativan 2mg/ml 1ml) 1 mg Q4H PRN IV For Anxiety 08/02/20 13:45 08/09/20 13:44 08/02/20 22:19 Metoclopramide HCl (Reglan) 10 mg Q6H IVP 08/01/20 18:00 08/31/20 17:59 08/08/20 11:58 Midodrine (Pro-Amatine) 10 mg Q8H PRN GT BP below 100 systolic 08/06/20 10:30 11/04/20 10:29 Ondansetron HCl (Zofran) 4 mg Q6H PRN IVP Nausea & Vomiting 08/02/20 10:00 09/01/20 09:59 Polyethylene Glycol (Miralax) 17 gm BEDTIME ORAL 07/26/20 21:00 08/25/20 20:59 08/06/20 20:32 Quetiapine Fumarate (SEROqueL) 75 mg Q8HR GT 08/02/20 14:00 08/30/20 13:59 08/08/20 05:36 Laboratory Tests 08/08/20 03:35: White Blood Count 6.9, Red Blood Count 3.40L, Hemoglobin 9.6L, Hematocrit 31.6L, Mean Corpuscular Volume 93, Mean Corpuscular Hemoglobin 28.3, Mean Corpuscular Hemoglobin Concent 30.4L, Red Cell Distribution Width 17.9H, Platelet Count 201, Mean Platelet Volume 8.1, Neutrophils (%) (Auto) , Lymphocytes (%) (Auto) , Monocytes (%) (Auto) , Eosinophils (%) (Auto) , Basophils (%) (Auto) , Sodium Level 143, Potassium Level 3.6, Chloride Level 104, Carbon Dioxide Level 34H, Anion Gap 5, Blood Urea Nitrogen 29H, Creatinine 1.1, Estimat Glomerular Filtration Rate 52.8, Glucose Level 123H, Calcium Level 11.1H Height (Feet): 5 Height (Inches): 5.00 Weight (Pounds): 223 General Appearance: no apparent distress EENT: other - Trach to vent Cardiovascular: tachycardia Respiratory/Chest: decreased breath sounds Abdomen: distended Rigo Tyler MD Aug 08, 2020 12:14
[2020-08-08] MEDS: Acetaminophen 650mg/20.3ml NG PRN (12:20)
--- NOTE | 2020-08-08 12:30 | NUR ---
NURSE NOTES: Tylenol administered to patient for temperature of 100.5 F taken axillary. flushed cool filtered water through the G-tube to cool patient, she has been also given a ice packs. she remains awake and using gestures to make needs known, shes has no pain at this time, will reassess patient temperature shortly.
--- NOTE | 2020-08-08 12:59 | Surgery Progress Note ---
Surgery Progress Note Subjective Procedure Performed right tube chest tube insertion Symptoms: improved, tolerating diet, passing flatus Objective Last 24 Hour Vital Signs Date Time Temp Pulse Resp B/P (MAP) Pulse Ox O2 Delivery O2 Flow Rate FiO2 08/08/20 12:00 100.8 98 24 116/53 (74) 100 08/08/20 12:00 100 08/08/20 12:00 10.0 40 08/08/20 12:00 T-piece 10.0 T-piece 10.0 08/08/20 11:00 99 28 113/58 (76) 87 08/08/20 10:00 90 24 112/62 (79) 100 08/08/20 09:00 98.6 93 21 115/61 (79) 100 08/08/20 08:01 99.5 87 20 127/61 (83) 100 08/08/20 08:00 T-piece 10.0 T-piece 10.0 08/08/20 08:00 87 08/08/20 08:00 87 20 127/61 (83) 100 08/08/20 08:00 10.0 40 08/08/20 07:00 86 20 102/50 (67) 100 08/08/20 06:30 97 21 102/50 (67) 98 08/08/20 06:00 95 23 111/57 (75) 99 08/08/20 05:30 90 24 124/51 (75) 99 08/08/20 05:00 86 22 123/58 (79) 99 08/08/20 04:30 98.7 88 23 121/62 (81) 100 08/08/20 04:00 91 08/08/20 04:00 10.0 40 08/08/20 04:00 91 23 119/61 (80) 99 08/08/20 04:00 T-piece 10.0 T-piece 10.0 08/08/20 03:30 89 23 115/60 (78) 100 08/08/20 03:00 89 23 125/60 (81) 100 08/08/20 02:30 87 22 118/63 (81) 100 08/08/20 02:00 83 20 113/60 (77) 100 08/08/20 01:30 100 Cool Aerosol 10.0 40 08/08/20 01:30 86 23 105/54 (71) 100 08/08/20 01:00 88 18 118/55 (76) 100 08/08/20 00:30 85 19 113/55 (74) 99 08/08/20 00:00 10.0 40 08/08/20 00:00 93 08/08/20 00:00 T-piece 10.0 T-piece 10.0 08/08/20 00:00 99.2 88 22 108/51 (70) 99 08/07/20 23:30 93 24 109/61 (77) 99 08/07/20 23:00 94 21 109/49 (69) 98 08/07/20 22:30 94 24 111/53 (72) 100 08/07/20 22:00 90 29 117/52 (73) 100 08/07/20 21:30 93 24 112/59 (76) 100 08/07/20 21:00 92 24 111/57 (75) 100 08/07/20 20:30 93 29 103/57 (72) 100 08/07/20 20:00 10.0 40 08/07/20 20:00 90 08/07/20 20:00 T-piece 10.0 T-piece 10.0 08/07/20 20:00 99.3 95 26 122/59 (80) 100 08/07/20 19:30 90 25 107/60 (76) 100 08/07/20 19:15 100 Cool Aerosol 10.0 40 08/07/20 19:00 88 21 120/58 (78) 100 08/07/20 18:00 85 21 115/53 (73) 100 08/07/20 17:00 85 21 107/50 (69) 99 08/07/20 16:00 T-piece T-piece 08/07/20 16:00 40 08/07/20 16:00 99.5 85 16 125/53 (77) 96 08/07/20 15:58 87 08/07/20 15:00 86 19 119/56 (77) 98 08/07/20 14:00 88 24 122/58 (79) 100 08/07/20 13:25 100 Cool Aerosol 10.0 40 08/07/20 13:00 89 19 132/48 (76) 100 I&O Intake and Output 08/07/20 08/08/20 19:00 07:00 Intake Total 710 ml 860 ml Output Total 810 ml 840 ml Balance -100 ml 20 ml Free Water 50 ml 200 ml Tube Feeding 660 ml 660 ml Output Urine Total 810 ml 840 ml Chest Tube Drainage Total 0 ml # Bowel Movements 2 1 Dressing: saturated Cardiovascular: RSR Respiratory: decreased breath sounds Abdomen: soft, flat, non-tender, present bowel sounds, non-distended Extremities: no tenderness, no cyanosis Laboratory Tests Test 08/08/20 03:35 White Blood Count 6.9 K/UL (4.8-10.8) Red Blood Count 3.40 M/UL (4.20-5.40) L Hemoglobin 9.6 G/DL (12.0-16.0) L Hematocrit 31.6 % (37.0-47.0) L Mean Corpuscular Volume 93 FL (80-99) Mean Corpuscular Hemoglobin 28.3 PG (27.0-31.0) Mean Corpuscular Hemoglobin Concent 30.4 G/DL (32.0-36.0) L Red Cell Distribution Width 17.9 % (11.6-14.8) H Platelet Count 201 K/UL (150-450) Mean Platelet Volume 8.1 FL (6.5-10.1) Neutrophils (%) (Auto) % (45.0-75.0) Lymphocytes (%) (Auto) % (20.0-45.0) Monocytes (%) (Auto) % (1.0-10.0) Eosinophils (%) (Auto) % (0.0-3.0) Basophils (%) (Auto) % (0.0-2.0) Sodium Level 143 MMOL/L (136-145) Potassium Level 3.6 MMOL/L (3.5-5.1) Chloride Level 104 MMOL/L (98-107) Carbon Dioxide Level 34 MMOL/L (21-32) H Anion Gap 5 mmol/L (5-15) Blood Urea Nitrogen 29 mg/dL (7-18) H Creatinine 1.1 MG/DL (0.55-1.30) Estimat Glomerular Filtration Rate 52.8 mL/min (>60) Glucose Level 123 MG/DL (74-106) H Calcium Level 11.1 MG/DL (8.5-10.1) H Plan Problems: (1) Respiratory distress (2) Respiratory failure Assessment & Plan: 50-year-old female Covid positive respiratory insufficiency intubated on ventilatory support declining. Leukocytosis increase oxygen requirement. Vent settings per pulmonology reviewed identified and agree. Unfortunately further surgical invention at this time is not appropriate as patient is not a candidate and her current condition. Prognosis overall guarded. Tracheostomy can be considered in the future if recovering or shows improvement and requires unable to be weaned from ventilator support. Currently okay for nutritional optimization with NG tube. Will need significant monitoring for decubitus formation given patient's size and condition. Okay for air mattress tolerated. Turn every 2 hours as tolerated. Patient is otherwise critically ill and blood pressure labile. Will need to monitor closely.Bilateral infiltrates are again demonstrated. Stable tube and line positions. will need trach will need to wean vent first no cuff leak trach okay Improving weaning well DC planning placement much improved peg placement trach changed acls now resuscitated (3) Hypoxia (4) Pneumonia due to COVID-19 virus Assessment & Plan: ++ as per pulm and ID (5) Diabetes mellitus out of control Assessment & Plan: DAILY ESTIMATED NEEDS: Needs based on Critical care, obesity 11-14kcal/kg actual body wt (140kg) kcals/kg 3235-3608 total kcals 1.5-2.0g prot/kg IBW (64.5kg) g protein/kg 96-129 g total protein 25-30ml/kg abw (83kg) mL/kg 2981-1294 total fluid mLs NUTRITION DIAGNOSIS: Swallowing difficulty R/T respiratory failure as evidenced by pt orally intubated and sedated, on OGT feeds. CURRENT TF: Vital 1.2 goal of 60ml/hr ENTERAL NUTRITION RECOMMENDATIONS: Vital AF 1.2 @ 60ml/hr x 24 hrs to provide 1440ml, 1728kcal, 108g prot, 1168ml free water * Maintain current critical care and carb controlled TF formula of Vital AF * TF @ goal meeds 100% est kcal/prot needs * HOB over 30 degrees/ water flush per MD TF may be lowered to 55ml/hr for improved BG control while maintaining Kcal and pro needs. ADDITIONAL RECOMMENDATIONS: * Calibrated bedscale wt * Monitor Propofol rate, need for TF adjustment-> now off * Monitor BGs closely : now improved, on novolog q 6rs + NISS * Monitor lytes- K elevated, monitor need for TF change * Rec bowel regimen- now w/ rectal tube . (6) Pneumothorax on right Assessment & Plan: right tension pneumothorax trach changed for cuff leak and decreased volumes pressures high after and ptx tension acls resuscitated right chest tube placed ptx resolved cont chest tube to suction am cxr wean vent Right chest tube, tracheostomy, nasogastric tube remain. Previously demonstrated subcutaneous emphysema has nearly completely cleared, with only questionably small residual in the left supraclavicular fossa. Extensive bilateral infiltrates persist. There is no pneumothorax currently. The heart is borderline enlarged. Pneumoperitoneum persists, may be slightly decreased Impression: Markedly improved subcutaneous emphysema Unchanged bilateral infiltrates Persistent but perhaps slightly decreased pneumoperitoneum chest tube removed 07/29 f/u cxr new chest tube 07/30 tolerating tube feeds no n/v weaning vent well cxr reviewed tube okay no large ptx stable cont chest tube to water seal chest tube out improved cxr okay d/c planning (7) DEVENDRA (acute kidney injury) (8) Morbid obesity [facility] Aug 08, 2020 12:59
--- NOTE | 2020-08-08 13:09 | General Progress Note ---
Subjective ROS Limited/Unobtainable: No Allergies: Coded Allergies: No Known Allergies (Unverified , 05/28/20) Subjective vomited again had BM no GT residuals Objective Last 24 Hour Vital Signs Date Time Temp Pulse Resp B/P (MAP) Pulse Ox O2 Delivery O2 Flow Rate FiO2 08/08/20 12:00 100.8 98 24 116/53 (74) 100 08/08/20 12:00 100 08/08/20 12:00 10.0 40 08/08/20 12:00 T-piece 10.0 T-piece 10.0 08/08/20 11:00 99 28 113/58 (76) 87 08/08/20 10:00 90 24 112/62 (79) 100 08/08/20 09:00 98.6 93 21 115/61 (79) 100 08/08/20 08:01 99.5 87 20 127/61 (83) 100 08/08/20 08:00 T-piece 10.0 T-piece 10.0 08/08/20 08:00 87 08/08/20 08:00 87 20 127/61 (83) 100 08/08/20 08:00 10.0 40 08/08/20 07:00 86 20 102/50 (67) 100 08/08/20 06:30 97 21 102/50 (67) 98 08/08/20 06:00 95 23 111/57 (75) 99 08/08/20 05:30 90 24 124/51 (75) 99 08/08/20 05:00 86 22 123/58 (79) 99 08/08/20 04:30 98.7 88 23 121/62 (81) 100 08/08/20 04:00 91 08/08/20 04:00 10.0 40 08/08/20 04:00 91 23 119/61 (80) 99 08/08/20 04:00 T-piece 10.0 T-piece 10.0 08/08/20 03:30 89 23 115/60 (78) 100 08/08/20 03:00 89 23 125/60 (81) 100 08/08/20 02:30 87 22 118/63 (81) 100 08/08/20 02:00 83 20 113/60 (77) 100 08/08/20 01:30 100 Cool Aerosol 10.0 40 08/08/20 01:30 86 23 105/54 (71) 100 08/08/20 01:00 88 18 118/55 (76) 100 08/08/20 00:30 85 19 113/55 (74) 99 08/08/20 00:00 10.0 40 08/08/20 00:00 93 08/08/20 00:00 T-piece 10.0 T-piece 10.0 08/08/20 00:00 99.2 88 22 108/51 (70) 99 08/07/20 23:30 93 24 109/61 (77) 99 08/07/20 23:00 94 21 109/49 (69) 98 08/07/20 22:30 94 24 111/53 (72) 100 08/07/20 22:00 90 29 117/52 (73) 100 08/07/20 21:30 93 24 112/59 (76) 100 08/07/20 21:00 92 24 111/57 (75) 100 08/07/20 20:30 93 29 103/57 (72) 100 08/07/20 20:00 10.0 40 08/07/20 20:00 90 08/07/20 20:00 T-piece 10.0 T-piece 10.0 08/07/20 20:00 99.3 95 26 122/59 (80) 100 08/07/20 19:30 90 25 107/60 (76) 100 08/07/20 19:15 100 Cool Aerosol 10.0 40 08/07/20 19:00 88 21 120/58 (78) 100 08/07/20 18:00 85 21 115/53 (73) 100 08/07/20 17:00 85 21 107/50 (69) 99 08/07/20 16:00 T-piece T-piece 08/07/20 16:00 40 08/07/20 16:00 99.5 85 16 125/53 (77) 96 08/07/20 15:58 87 08/07/20 15:00 86 19 119/56 (77) 98 08/07/20 14:00 88 24 122/58 (79) 100 08/07/20 13:25 100 Cool Aerosol 10.0 40 Intake and Output 08/07/20 08/08/20 19:00 07:00 Intake Total 710 ml 860 ml Output Total 810 ml 840 ml Balance -100 ml 20 ml Free Water 50 ml 200 ml Tube Feeding 660 ml 660 ml Output Urine Total 810 ml 840 ml Chest Tube Drainage Total 0 ml # Bowel Movements 2 1 Laboratory Tests 08/08/20 03:35: White Blood Count 6.9, Red Blood Count 3.40L, Hemoglobin 9.6L, Hematocrit 31.6L, Mean Corpuscular Volume 93, Mean Corpuscular Hemoglobin 28.3, Mean Corpuscular Hemoglobin Concent 30.4L, Red Cell Distribution Width 17.9H, Platelet Count 201, Mean Platelet Volume 8.1, Neutrophils (%) (Auto) , Lymphocytes (%) (Auto) , Monocytes (%) (Auto) , Eosinophils (%) (Auto) , Basophils (%) (Auto) , Sodium Level 143, Potassium Level 3.6, Chloride Level 104, Carbon Dioxide Level 34H, Anion Gap 5, Blood Urea Nitrogen 29H, Creatinine 1.1, Estimat Glomerular Filtration Rate 52.8, Glucose Level 123H, Calcium Level 11.1H Height (Feet): 5 Height (Inches): 5.00 Weight (Pounds): 223 General Appearance: no apparent distress EENT: normal ENT inspection Neck: supple Cardiovascular: normal rate Respiratory/Chest: decreased breath sounds Abdomen: hypoactive bowel sounds Extremities: non-tender Assessment/Plan Problem List: (1) Morbid obesity ICD Codes: E66.01 - Morbid (severe) obesity due to excess calories SNOMED: 567884453 (2) DEVENDRA (acute kidney injury) ICD Codes: N17.9 - Acute kidney failure, unspecified SNOMED: 7905601, 30987291 (3) Diabetes mellitus out of control ICD Codes: E11.65 - Type 2 diabetes mellitus with hyperglycemia SNOMED: 11113354, 800316236 (4) Pneumonia due to COVID-19 virus ICD Codes: U07.1 - COVID-19; J12.82 - Pneumonia due to coronavirus disease 2019 SNOMED: 563008073123159532 (5) Hypoxia ICD Codes: R09.02 - Hypoxemia SNOMED: 280285725 (6) Respiratory failure ICD Codes: J96.90 - Respiratory failure, unspecified, unspecified whether with hypoxia or hypercapnia SNOMED: 171569373 Status: unchanged Assessment/Plan: s/p PEG GTF colace miralax zofran reglan pending possible chest tube removal will Ryan Dubose MD Aug 08, 2020 13:09
--- NOTE | 2020-08-08 13:16 | General Progress Note ---
Subjective Constitutional: Reports: weakness Allergies: Coded Allergies: No Known Allergies (Unverified , 05/28/20) All Systems: reviewed and negative except above Subjective trach vent in icu Objective Last 24 Hour Vital Signs Date Time Temp Pulse Resp B/P (MAP) Pulse Ox O2 Delivery O2 Flow Rate FiO2 08/08/20 12:00 100.8 98 24 116/53 (74) 100 08/08/20 12:00 100 08/08/20 12:00 10.0 40 08/08/20 12:00 T-piece 10.0 T-piece 10.0 08/08/20 11:00 99 28 113/58 (76) 87 08/08/20 10:00 90 24 112/62 (79) 100 08/08/20 09:00 98.6 93 21 115/61 (79) 100 08/08/20 08:01 99.5 87 20 127/61 (83) 100 08/08/20 08:00 T-piece 10.0 T-piece 10.0 08/08/20 08:00 87 08/08/20 08:00 87 20 127/61 (83) 100 08/08/20 08:00 10.0 40 08/08/20 07:00 86 20 102/50 (67) 100 08/08/20 06:30 97 21 102/50 (67) 98 08/08/20 06:00 95 23 111/57 (75) 99 08/08/20 05:30 90 24 124/51 (75) 99 08/08/20 05:00 86 22 123/58 (79) 99 08/08/20 04:30 98.7 88 23 121/62 (81) 100 08/08/20 04:00 91 08/08/20 04:00 10.0 40 08/08/20 04:00 91 23 119/61 (80) 99 08/08/20 04:00 T-piece 10.0 T-piece 10.0 08/08/20 03:30 89 23 115/60 (78) 100 08/08/20 03:00 89 23 125/60 (81) 100 08/08/20 02:30 87 22 118/63 (81) 100 08/08/20 02:00 83 20 113/60 (77) 100 08/08/20 01:30 100 Cool Aerosol 10.0 40 08/08/20 01:30 86 23 105/54 (71) 100 08/08/20 01:00 88 18 118/55 (76) 100 08/08/20 00:30 85 19 113/55 (74) 99 08/08/20 00:00 10.0 40 08/08/20 00:00 93 08/08/20 00:00 T-piece 10.0 T-piece 10.0 08/08/20 00:00 99.2 88 22 108/51 (70) 99 08/07/20 23:30 93 24 109/61 (77) 99 08/07/20 23:00 94 21 109/49 (69) 98 08/07/20 22:30 94 24 111/53 (72) 100 08/07/20 22:00 90 29 117/52 (73) 100 08/07/20 21:30 93 24 112/59 (76) 100 08/07/20 21:00 92 24 111/57 (75) 100 08/07/20 20:30 93 29 103/57 (72) 100 08/07/20 20:00 10.0 40 08/07/20 20:00 90 08/07/20 20:00 T-piece 10.0 T-piece 10.0 08/07/20 20:00 99.3 95 26 122/59 (80) 100 08/07/20 19:30 90 25 107/60 (76) 100 08/07/20 19:15 100 Cool Aerosol 10.0 40 08/07/20 19:00 88 21 120/58 (78) 100 08/07/20 18:00 85 21 115/53 (73) 100 08/07/20 17:00 85 21 107/50 (69) 99 08/07/20 16:00 T-piece T-piece 08/07/20 16:00 40 08/07/20 16:00 99.5 85 16 125/53 (77) 96 08/07/20 15:58 87 08/07/20 15:00 86 19 119/56 (77) 98 08/07/20 14:00 88 24 122/58 (79) 100 08/07/20 13:25 100 Cool Aerosol 10.0 40 Intake and Output 08/07/20 08/08/20 19:00 07:00 Intake Total 710 ml 860 ml Output Total 810 ml 840 ml Balance -100 ml 20 ml Free Water 50 ml 200 ml Tube Feeding 660 ml 660 ml Output Urine Total 810 ml 840 ml Chest Tube Drainage Total 0 ml # Bowel Movements 2 1 Laboratory Tests 08/08/20 03:35: White Blood Count 6.9, Red Blood Count 3.40L, Hemoglobin 9.6L, Hematocrit 31.6L, Mean Corpuscular Volume 93, Mean Corpuscular Hemoglobin 28.3, Mean Corpuscular Hemoglobin Concent 30.4L, Red Cell Distribution Width 17.9H, Platelet Count 201, Mean Platelet Volume 8.1, Neutrophils (%) (Auto) , Lymphocytes (%) (Auto) , Rich cytes (%) (Auto) , Eosinophils (%) (Auto) , Basophils (%) (Auto) , Sodium Level 143, Potassium Level 3.6, Chloride Level 104, Carbon Dioxide Level 34H, Anion Gap 5, Blood Urea Nitrogen 29H, Creatinine 1.1, Estimat Glomerular Filtration Rate 52.8, Glucose Level 123H, Calcium Level 11.1H Height (Feet): 5 Height (Inches): 5.00 Weight (Pounds): 223 General Appearance: lethargic EENT: normal ENT inspection Neck: normal alignment Cardiovascular: normal peripheral pulses, normal rate, regular rhythm Respiratory/Chest: chest wall non-tender, lungs clear, normal breath sounds Abdomen: normal bowel sounds, non tender, soft Extremities: normal inspection Edema: no edema noted Arm (L), no edema noted Arm (R), no edema noted Leg (L), no edema noted Leg (R), no edema noted Pedal (L), no edema noted Pedal (R), no edema noted Generalized Neurologic: motor weakness Skin: normal pigmentation, warm/dry Assessment/Plan Problem List: (1) Hypoxia ICD Codes: R09.02 - Hypoxemia SNOMED: 678878824 (2) Respiratory failure ICD Codes: J96.90 - Respiratory failure, unspecified, unspecified whether with hypoxia or hypercapnia SNOMED: 556052898 (3) Respiratory distress ICD Codes: R06.03 - Acute respiratory distress; J12.82 - Pneumonia due to coronavirus disease 2019 SNOMED: 326490618 (4) Pneumonia due to COVID-19 virus ICD Codes: U07.1 - COVID-19; J12.82 - Pneumonia due to coronavirus disease 2019 SNOMED: 634268578056249813 Status: unchanged Assessment/Plan: vent abx id wean chest tube pulm f/u cbc bmp am dc plan if clear by sx Tank Del Cid DO Aug 08, 2020 13:16
--- NOTE | 2020-08-08 14:15 | NUR ---
RADIOLOGY DEPT., CHEST X-RAY DONE.-P.DYE
--- NOTE | 2020-08-08 14:45 | NUR ---
NURSE NOTES: patient given bath and cleaned bowel movement, stool is soft and liquid, patient tolerated turning while on fio2 40% and remained saturating at 94-96%. awaiting for transport team to transfer patient o [facility].
--- NOTE | 2020-08-08 15:28 | NUR ---
insurance [employer]ICALS FAXED TO [place] T: [phone] EXT [phone] F: [phone]
--- NOTE | 2020-08-08 15:39 | NUR ---
NURSE NOTES: [facility] transport team at the bedside and report given to RAKEL Barrios. report also given to Angelica at [facility] to room 226-B.
--- NOTE | 2020-08-08 16:16 | NUR ---
NURSE NOTES: Next of kin, Ericka Hall, aware of her aunt being transferred to [facility].
[2020-08-08] MEDS ORDERED: Sterile Water Irrig 1000ml IRRIG ONE (16:29)
[2020-08-08] MEDS ORDERED: NS 275ml ONE (16:29)
[2020-08-08] MEDS ORDERED: Tubing IV Secondary IV ONE (16:29)
--- NOTE | 2020-08-08 16:39 | Cardiac Electrophysiology PN ---
Assessment/Plan Assessment/Plan 1. Respiratory failure due to COVID-19 pneumonia. Trach exchanged 07/22/[address] Devine Echo EF 60% On tracheostomy on T Piece off the vent on 40 % Fio2. 2. S/P Code x2 with hypotension and sammy arrest on 07/22/20 likely due to Pneumothorax. HR stable 3. Right Pneumothorax, S/P chest tube placement. Removed 07/29/20 Thoravent placed 07/30/20 and removed 08/07/20 4. Hypotension, on midodrine 10 mg 3 times daily and off pressors 5. Dysphagia. S/P PEG 07/24/20 6. Right lower extremity DVT. Follow up by Hematology. 7. Severe anemia, S/P PRBC 8. Low Mg, replaced DW RN DC to [facility] today Subjective Subjective Coded twice for hypotension and bradycardia while on the Vent about 20 minutes after tracheostomy was changed 07/22/20 Found to have Right Pneumothorax and underwent Right chest tube placement by Dr. Devine S/P PRBC. S/P PEG 07/24/20. Chest tube removed 07/29/20 Thora vent [address] by Dr. Devine on . Thoravent removed 08/07/20 In ICU on T Piece 40 % Fio2 In SR. Off pressors Covid test negative and now off isolation Alert in NAD on T tube. DC in progress Objective Last 24 Hour Vital Signs Date Time Temp Pulse Resp B/P (MAP) Pulse Ox O2 Delivery O2 Flow Rate FiO2 08/08/20 15:00 92 12 114/53 (73) 100 08/08/20 14:00 98 21 116/62 (80) 100 08/08/20 13:53 100 Cool Aerosol 10.0 40 08/08/20 13:45 98.7 08/08/20 13:00 100 23 125/58 (80) 100 08/08/20 12:00 100.8 98 24 116/53 (74) 100 08/08/20 12:00 100 08/08/20 12:00 10.0 40 08/08/20 12:00 T-piece 10.0 T-piece 10.0 08/08/20 11:00 99 28 113/58 (76) 87 08/08/20 10:00 90 24 112/62 (79) 100 08/08/20 09:00 98.6 93 21 115/61 (79) 100 08/08/20 08:01 99.5 87 20 127/61 (83) 100 08/08/20 08:00 T-piece 10.0 T-piece 10.0 08/08/20 08:00 87 08/08/20 08:00 87 20 127/61 (83) 100 08/08/20 08:00 10.0 40 08/08/20 07:02 99 Cool Aerosol 10.0 40 08/08/20 07:00 86 20 102/50 (67) 100 08/08/20 06:30 97 21 102/50 (67) 98 08/08/20 06:00 95 23 111/57 (75) 99 08/08/20 05:30 90 24 124/51 (75) 99 08/08/20 05:00 86 22 123/58 (79) 99 08/08/20 04:30 98.7 88 23 121/62 (81) 100 08/08/20 04:00 91 08/08/20 04:00 10.0 40 08/08/20 04:00 91 23 119/61 (80) 99 08/08/20 04:00 T-piece 10.0 T-piece 10.0 08/08/20 03:30 89 23 115/60 (78) 100 08/08/20 03:00 89 23 125/60 (81) 100 08/08/20 02:30 87 22 118/63 (81) 100 08/08/20 02:00 83 20 113/60 (77) 100 08/08/20 01:30 100 Cool Aerosol 10.0 40 08/08/20 01:30 86 23 105/54 (71) 100 08/08/20 01:00 88 18 118/55 (76) 100 08/08/20 00:30 85 19 113/55 (74) 99 08/08/20 00:00 10.0 40 08/08/20 00:00 93 08/08/20 00:00 T-piece 10.0 T-piece 10.0 08/08/20 00:00 99.2 88 22 108/51 (70) 99 08/07/20 23:30 93 24 109/61 (77) 99 08/07/20 23:00 94 21 109/49 (69) 98 08/07/20 22:30 94 24 111/53 (72) 100 08/07/20 22:00 90 29 117/52 (73) 100 08/07/20 21:30 93 24 112/59 (76) 100 08/07/20 21:00 92 24 111/57 (75) 100 08/07/20 20:30 93 29 103/57 (72) 100 08/07/20 20:00 10.0 40 08/07/20 20:00 90 08/07/20 20:00 T-piece 10.0 T-piece 10.0 08/07/20 20:00 99.3 95 26 122/59 (80) 100 08/07/20 19:30 90 25 107/60 (76) 100 08/07/20 19:15 100 Cool Aerosol 10.0 40 08/07/20 19:00 88 21 120/58 (78) 100 08/07/20 18:00 85 21 115/53 (73) 100 08/07/20 17:00 85 21 107/50 (69) 99 Intake and Output 08/07/20 08/08/20 19:00 07:00 Intake Total 710 ml 860 ml Output Total 810 ml 840 ml Balance -100 ml 20 ml Free Water 50 ml 200 ml Tube Feeding 660 ml 660 ml Output Urine Total 810 ml 840 ml Chest Tube Drainage Total 0 ml # Bowel Movements 2 1 Laboratory Tests Test 08/08/20 03:35 White Blood Count 6.9 K/UL (4.8-10.8) Red Blood Count 3.40 M/UL (4.20-5.40) L Hemoglobin 9.6 G/DL (12.0-16.0) L Hematocrit 31.6 % (37.0-47.0) L Mean Corpuscular Volume 93 FL (80-99) Mean Corpuscular Hemoglobin 28.3 PG (27.0-31.0) Mean Corpuscular Hemoglobin Concent 30.4 G/DL (32.0-36.0) L Red Cell Distribution Width 17.9 % (11.6-14.8) H Platelet Count 201 K/UL (150-450) Mean Platelet Volume 8.1 FL (6.5-10.1) Neutrophils (%) (Auto) % (45.0-75.0) Lymphocytes (%) (Auto) % (20.0-45.0) Monocytes (%) (Auto) % (1.0-10.0) Eosinophils (%) (Auto) % (0.0-3.0) Basophils (%) (Auto) % (0.0-2.0) Sodium Level 143 MMOL/L (136-145) Potassium Level 3.6 MMOL/L (3.5-5.1) Chloride Level 104 MMOL/L (98-107) Carbon Dioxide Level 34 MMOL/L (21-32) H Anion Gap 5 mmol/L (5-15) Blood Urea Nitrogen 29 mg/dL (7-18) H Creatinine 1.1 MG/DL (0.55-1.30) Estimat Glomerular Filtration Rate 52.8 mL/min (>60) Glucose Level 123 MG/DL (74-106) H Calcium Level 11.1 MG/DL (8.5-10.1) H Objective HEAD AND NECK: Status post tracheostomy LUNGS: Coarse rhonchi. CARDIOVASCULAR: Regular S1 and S2 with no gallop. ABDOMEN: Soft.S/P PEG EXTREMITIES: 1+ pitting edema. Hill Burger MD Aug 08, 2020 16:39
--- NOTE | 2020-08-09 11:04 | Discharge Summary ---
Discharge Summary Discharge Summary _ Date of admission: 05/28/2020 Date of discharge: 08/08/[address] Del Cid History of Present Illness and Brief Hospital Course Ms. Maddox is a 50-year-old female with past medical history of hypertension who presented to ER for evaluation of shortness of breath x4 days. Patient was brought in by EMS from home. Patient was hypoxic on room air on arrival. Patient was placed on nonrebreather mask with subsequent improvement of her oxygen saturation. Chest x-ray showed patchy opacities. Patient was given Lovenox, Decadron, and antibiotics for pneumonia coverage. Patient tested positive for COVID-19 in the ER. Initial laboratory studies were notable for no leukocytosis, stable H&H, normal electrolytes, and negative troponin. Given worsening hypoxemia on supplemental oxygen, patient was intubated and was transferred to ICU. Patient was continued on remdesivir, broad-spectrum antibiotics, and dexamethasone. Patient was started on OG tube feeding which was later switched to PEG. Patient was closely monitored. Ventilator settings were changed accordingly based on ABG results. Patient was eventually titrated down on FiO2 and PEEP. Patient was trached. Patient underwent trach change because the the inflated cuff of the old trach was malfunctioning. Patient coded during this trach change. ROSC was achieved with chest compressions. Patient was found to have a right-sided pneumothorax on chest x-ray. A chest tube was inserted. The chest tube was removed later. However, a repeat chest x-ray revealed return of pneumothorax. Patient was connected to a Thora vent. After continued monitoring, patient eventually tolerated trach collar. The Thora vent was removed after placement of trach collar. Patient was on Lovenox for elevated inflammatory markers including high D-dimer. Lovenox was held briefly for a new onset hematuria. Patient was also found to have DVT of the right calf. IVC filter can be considered once the patient is more stable. Patient was found to be anemic. Patient was transfused as needed to keep H&H stable. Despite initial poor prognosis, patient was able to be stabilized in ICU. Patient was medically stable for discharge to long-term care facility. Patient was discharged on 08/08/2020. Consultants: Cardiology Dr. Burger Endocrinology Dr. Adame Nephrology Dr. Dior Surgery Dr. Devine Infectious disease Dr. Mcelroy Pulmonology Dr. Nava Discharge Condition Stable Discharge Activity Bedrest Discharge Diet Tube feeding Final diagnoses COVID-19 pneumonia s/p Cardiopulmonary arrest Hypotension Dysphagia, s/p PEG Right lower extremity DVT Severe anemia due to chronic disease Hypomagnesemia Thrombocytopenia Leukocytosis Diabetes mellitus, uncontrolled Morbid obesity Pseudomonas pneumonia Serratia sepsis No acute hypoxemic respiratory failure, s/p trach vent I have been assigned to dictate discharge summary for this account. Vamshi Garcia Aug 09, 2020 11:04
== END 2020-08-08 16:30 | DRG 5 ==
LOC: EDBD 09:58 → EMR 10:25 → 2W 11:50 → EDBEDREQ 15:13 → EDBEDREQSVC 15:13 → EDBEDREQ 05-29 21:02 → ICU 05-29 22:48 → UNDODISIN 08-08 16:30
PROC: 5A1955Z Respiratory Ventilation, Greater than 96 Consecutive Hours (ICD-10-PCS; principal; 2020-05-28)
PROC: 0BH17EZ Insertion of Endotracheal Airway into Trachea, Via Natural or Artificial Opening (ICD-10-PCS; 2020-05-28)
PROC: XW033E5 Introduction of Remdesivir Anti-infective into Peripheral Vein, Percutaneous Approach, New Technology Group 5 (ICD-10-PCS; 2020-05-28)
PROC: 5A09357 Assistance with Respiratory Ventilation, Less than 24 Consecutive Hours, Continuous Positive Airway Pressure (ICD-10-PCS; 2020-05-28)
PROC: 0B110F4 Bypass Trachea to Cutaneous with Tracheostomy Device, Open Approach (ICD-10-PCS; 2020-07-04)
PROC: 0BC78ZZ Extirpation of Matter from Left Main Bronchus, Via Natural or Artificial Opening Endoscopic (ICD-10-PCS; 2020-07-04)
PROC: 0BC38ZZ Extirpation of Matter from Right Main Bronchus, Via Natural or Artificial Opening Endoscopic (ICD-10-PCS; 2020-07-04)
PROC: 30233N1 Transfusion of Nonautologous Red Blood Cells into Peripheral Vein, Percutaneous Approach (ICD-10-PCS; 2020-07-08)
PROC: 06HM33Z Insertion of Infusion Device into Right Femoral Vein, Percutaneous Approach (ICD-10-PCS; 2020-07-20)
PROC: 0B21XFZ Change Tracheostomy Device in Trachea, External Approach (ICD-10-PCS; 2020-07-22)
PROC: 0W9930Z Drainage of Right Pleural Cavity with Drainage Device, Percutaneous Approach (ICD-10-PCS; 2020-07-22)
PROC: 0W9900Z Drainage of Right Pleural Cavity with Drainage Device, Open Approach (ICD-10-PCS; 2020-07-22)
PROC: 02HV33Z Insertion of Infusion Device into Superior Vena Cava, Percutaneous Approach (ICD-10-PCS; 2020-07-24)
PROC: 0DH63UZ Insertion of Feeding Device into Stomach, Percutaneous Approach (ICD-10-PCS; 2020-07-24)
PROC: 0DBE8ZX Excision of Large Intestine, Via Natural or Artificial Opening Endoscopic, Diagnostic (ICD-10-PCS; 2020-07-24)
PROC: 0W9900Z Drainage of Right Pleural Cavity with Drainage Device, Open Approach (ICD-10-PCS; 2020-07-30)
PROC: 0WP9X0Z Removal of Drainage Device from Right Pleural Cavity, External Approach (ICD-10-PCS; 2020-08-07)
DX: U07.1 COVID-19 (principal); J12.89 Other viral pneumonia; A41.53 Sepsis due to Serratia; E87.1 Hypo-osmolality and hyponatremia; J96.91 Respiratory failure, unspecified with hypoxia; E11.65 Type 2 diabetes mellitus with hyperglycemia; Z68.37 Body mass index [BMI] 37.0-37.9, adult; J93.0 Spontaneous tension pneumothorax; N17.9 Acute kidney failure, unspecified; I10 Essential (primary) hypertension; I82.4Z1 Acute embolism and thrombosis of unspecified deep veins of right distal lower extremity; R13.10 Dysphagia, unspecified; I46.9 Cardiac arrest, cause unspecified; J15.1 Pneumonia due to Pseudomonas; D63.8 Anemia in other chronic diseases classified elsewhere; E83.42 Hypomagnesemia; E66.01 Morbid (severe) obesity due to excess calories; D69.6 Thrombocytopenia, unspecified; N13.9 Obstructive and reflux uropathy, unspecified; T81.82XA Emphysema (subcutaneous) resulting from a procedure, initial encounter; Y83.8 Other surgical procedures as the cause of abnormal reaction of the patient, or of later complication, without mention of misadventure at the time of the procedure; K21.9 Gastro-esophageal reflux disease without esophagitis; K29.70 Gastritis, unspecified, without bleeding; R00.1 Bradycardia, unspecified; I46.2 Cardiac arrest due to underlying cardiac condition; N39.0 Urinary tract infection, site not specified; B96.89 Other specified bacterial agents as the cause of diseases classified elsewhere; I95.9 Hypotension, unspecified
CPT/HCPCS: 31500; 36415; 36569; 71045; 74018; 76937; 80048; 80053; 80061; 80076; 80202; 81003; 82150; 82248; 82270; 82306; 82607; 82728; 82746; 82803; 82962; 83036; 83540; 83550; 83605; 83615; 83690; 83735; 83880; 84100; 84478; 84484; 84550; 85007; 85025; 85379; 85610; 85651; 85730; 86140; 86850; 86900; 86901; 86920; 87040; 87070; 87081; 87086; 87181; 87205; 92950; 93005; 93306; 93970; 94002; 94003; 94150; 96365; 96367; 96372; 96375; 99285; C9399; J0171; J1815; J2405; J2430; J2765; J3490; J7030; J8499; U0002